=== PATIENT | male | born 1945 | race Caucasian/White ===

== ENCOUNTER 2016-08-10 06:07 | Day surgery (SDC) | payer MEDICARE, OTHER ==
[2016-08-09 08:43] VITALS: BMI 35.9
[2016-08-10] MEDS ORDERED: BENZOCAINE SPRAY 100 APPLIC/CAN TOPICAL PRN (06:23)
[2016-08-10 06:52] VITALS: RESP 16
[2016-08-10] MEDS ORDERED: SODIUM CHLORIDE 0.9% 1,000 ML IV ONE (06:55)
[2016-08-10] MEDS ORDERED: MIDAZOLAM 2 MG/2 ML VIAL ONE (07:14)
[2016-08-10] MEDS ORDERED: fentaNYL (PF) 50 MCG/ML 2 ML AMP ONE (07:15)
[2016-08-10 07:19] LABS: INR 3.4 (<1.1); Prothrombin Time 33.2 sec (9.0-12.0)
[2016-08-10] MEDS ORDERED: BENZOCAINE SPRAY 100 APPLIC/CAN MUCOUS MEM ONE (07:28)
[2016-08-10] MEDS ORDERED: MIDAZOLAM 2 MG/2 ML VIAL IV ONE (07:29)
[2016-08-10] MEDS ORDERED: fentaNYL (PF) 50 MCG/ML 2 ML AMP IV ONE (07:34)
[2016-08-10] MEDS ORDERED: BENZOCAINE SPRAY 100 APPLIC/CAN ONE (07:55)
[2016-08-10] MEDS ORDERED: SODIUM CHLORIDE 0.9% 1,000 ML IV SCH (08:15)
--- NOTE | 2016-08-10 08:15 | P.PCN ---
Date of Procedure: 08/10/16 Preoperative Diagnosis: Moderate to severe mitral regurgitation Postoperative Diagnosis: Same Procedure(s) Performed: JAYDE examination Description of Procedure: INDICATION :This 71-year-old gentleman with history of mitral valve prolapse was recently diagnosed to have atrial fibrillation and also moderate to severe mitral regurgitation. Patient is advised to have a JAYDE examination for further assessment of mitral regurgitation. CONSENT: Informed consent was obtained from patient and which is a verbal consent PROCEDURE: Patient was brought to the lab in a fasting state. Patient was sedated with IV Versed and fentanyl. The throat was sprayed with Hurricaine .A lubricated Omni probe was advanced into the esophagus and multiple views were obtained. Pulse and color Doppler study was also performed. Saline bubble injections were also performed. Patient tolerated the procedure well. No immediate complications FINDINGS: The mitral valve shows some thickening. There is a echogenic mobile mass which is linear attached to the mitral leaflet. It appears to be a ruptured chordae tendineae. There is a eccentric mitral regurgitation. The Pisa value is about 0.8-1. The mitral regurgitation appears to be 3-4+ in the left atrial appendage appeared to be free of clot. No reversal flow was noted in the left pulmonary vein. The interatrial septum appeared to be intact without any spontaneous shunt. The saline bubble injections were suboptimal. There is moderate aortic regurgitation. Left ventricular function appeared to be preserved. IMPRESSION: #1. 3-4+ mitral regurgitation #2. Possible ruptured chordae tendonae #3. Moderate aortic regurgitation #4. Preserved LV function #5. No clot in left atrial appendage #6. Intra-atrial septum appeared to be intact. PLAN: Continuation of medical therapy. We will discontinue flecainide. We'll let just the dose of Coumadin. Patient is being evaluated for possible recurrence of lung cancer. If there is no evidence of recurrence of lung cancer , we'll consider cardiac catheterization and possible mitral valve repair.
[2016-08-10 08:56] VITALS: BP 109/61; PULSE 85; TEMP 98.2
== END 2016-08-10 09:07 | disposition home or self-care (01) ==
LOC: CATHCVL 06:07
PROVIDERS: ATTEND Internal Medicine Cardiovascular Disease
DX: I08.0 Rheumatic disorders of both mitral and aortic valves (principal); I34.1 Nonrheumatic mitral (valve) prolapse; I48.1 Persistent atrial fibrillation; I10 Essential (primary) hypertension; E78.2 Mixed hyperlipidemia; E03.9 Hypothyroidism, unspecified; Z79.01 Long term (current) use of anticoagulants; Z79.82 Long term (current) use of aspirin; Z79.899 Other long term (current) drug therapy; Z87.891 Personal history of nicotine dependence
CPT/HCPCS: 93312; 93320; 93325; 85610; 99156; 99157; J2250; J3010

== ENCOUNTER → 2016-09-22 | Outpatient (CLI) | payer MEDICARE, OTHER ==
[2016-09-22 13:45] LABS: CH 30.4; CHCM 33.1; HCT 43.4 % (39.0-53.0); HDW 2.78; HGB 14.4 gm/dL (13.0-17.5); MCH 30.6 pg (25.0-35.0); MCHC 33.2 g/dL (31.0-37.0); MCV 92.1 fL (80.0-100.0); Mean Platelet Volume 7.3; RBC 4.71 m/uL (4.30-5.90); WBC 8.8 k/uL (3.8-10.6)
[2016-09-22 13:58] LABS: Anion Gap 14 mmol/L; Blood Urea Nitrogen 36 mg/dL (9-20); Carbon Dioxide 28 mmol/L (22-30); Chloride 99 mmol/L (98-107); Non-African American GFR(MDRD) 59 (>60 ml/min/1.73 sqM); Potassium 4.8 mmol/L (3.5-5.1); Sodium 141 mmol/L (137-145)
== END ==
LOC: LABPAT 13:29
PROVIDERS: ATTEND Internal Medicine Cardiovascular Disease
DX: Z01.812 Encounter for preprocedural laboratory examination (principal); I48.1 Persistent atrial fibrillation
CPT/HCPCS: 80051; 82565; 84520; 85027

== ENCOUNTER 2016-09-23 07:54 | Inpatient (IN) | payer MEDICARE, OTHER ==
[~2016-09-23 07:54] MED LIST: ALPRAZolam 0.25 MG TAB PO PRN; ASPIRIN 325 MG TAB PO ONE; SODIUM CHLORIDE 0.9% 1,000 ML in EMPTY BAG 1 BAG IV ONE
[2016-09-23 08:34] LABS: Anisocytosis Slight; Basophils # (A) 0.1 k/uL (0-0.2); Basophils % (A) 1 %; CH 30.5; CHCM 33.5; Eosinophils # (A) 0.4 k/uL (0-0.7); Eosinophils % (A) 6 %; HCT 44.2 % (39.0-53.0); HDW 2.85; HGB 14.7 gm/dL (13.0-17.5); Luc # (Auto) 0.28; Luc % (Auto) 4; Lymphocytes # (A) 0.9 k/uL (1.0-4.8); Lymphocytes % (A) 12 %; MCH 30.5 pg (25.0-35.0); MCHC 33.3 g/dL (31.0-37.0); MCV 91.5 fL (80.0-100.0); Mean Platelet Volume 8.3; Monocytes # (A) 0.3 k/uL (0-1.0); Monocytes % (A) 5 %; Neutrophils # (A) 5.2 k/uL (1.3-7.7); Neutrophils % (A) 73 %; RBC 4.83 m/uL (4.30-5.90); RDW 16.1 % (11.5-15.5); WBC 7.2 k/uL (3.8-10.6); WBC (Perox) 7.32
[2016-09-23 08:39] LABS: INR 1.3 (<1.1); Prothrombin Time 13.1 sec (9.0-12.0)
[2016-09-23 08:45] LABS: Anion Gap 12 mmol/L; Blood Urea Nitrogen 33 mg/dL (9-20); Calcium 8.4 mg/dL (8.4-10.2); Carbon Dioxide 25 mmol/L (22-30); Chloride 104 mmol/L (98-107); Glucose 129 mg/dL (74-99); Non-African American GFR(MDRD) >60 (>60 ml/min/1.73 sqM); Potassium 4.5 mmol/L (3.5-5.1); Sodium 141 mmol/L (137-145)
[2016-09-23] MEDS ORDERED: fentaNYL (PF) 50 MCG/ML 2 ML AMP IV ONE (09:00)
[2016-09-23] MEDS ORDERED: LIDOCAINE 2% INJ 20 MG/ML SQ ONE (09:00)
[2016-09-23 09:36] LABS: Site FA; Site PA; Site RA
[2016-09-23] MEDS ORDERED: FUROSEMIDE 10 MG/ML 4 ML VIAL IV ONE (09:45)
[2016-09-23] MEDS ORDERED: IOHEXOL 350 MG/ML 100 ML BOTTLE INJ ONE (09:47)
[2016-09-23 09:52] LABS: Site RA #2
[2016-09-23] MEDS ORDERED: RX INFO: IV CONTRAST WAS GIVEN 1 EACH MISC MISCELLANE PRN ×2 (09:58→18:12)
[2016-09-23] MEDS ORDERED: SODIUM CHLORIDE 0.9% 1,000 ML IV SCH (10:00)
--- NOTE | 2016-09-23 10:10 | P.PCN ---
Date of Procedure: 09/23/16 Preoperative Diagnosis: Ruptured chordae tendineae, mitral regurgitation, atrial fibrillation and CHF. Postoperative Diagnosis: The same Procedure(s) Performed: Right and left heart catheterization Description of Procedure: HISTORY: This is a 71-year-old male with history of of mitral valve prolapse who developed symptoms of congestive heart failure and progressive mitral regurgitation. A JAYDE examination was consistent with ruptured chordae. Patient is advised to have a right and left heart catheterization. Patient may be candidate for mitral valve repair. CONSENT:I have discussed the risks, benefits and alternative therapies for the above-mentioned procedure and for both sedation/analgesia as well as necessary blood product administration, if indicated, as they pertain to this patient. The patient has indicated understanding and acceptance of the risks and procedures discussed. PROCEDURE: RIGHT HEART CATHETERIZATION Patient was brought to the lab in a fasting state. He was prepped and draped in the usual fashion. The right groin is infiltrated with lidocaine. Right femoral vein was entered using the Seldinger technique. A 7-S[place] sheath was advanced over the guidewire and and left in place. Right heart catheterization was performed using [place] catheter. Patient tolerated the procedure well. Manual compression was applied for hemostasis. LEFT HEART CATHETERIZATION: The right groin is infiltrated with lidocaine and right femoral artery was entered using Seldinger technique. A 6-S[place] Leonean catheter was left in place and selective coronary arteriography and left ventriculography was performed. Patient tolerated the procedure well. Femoral angiogram was performed and hemostasis is obtained with manual compression. No immediate complications were noted and patient was transferred to [facility] in a stable condition HEMODYNAMICS: RIGHT HEART CATHETERIZATION: Mean right atrial pressure was 14. Right ventricular pressure was 50/ 14. Pulmonary artery pressure was 50/ 25. Pulmonary wedge pressure was 26 with a V-wave of 45. No evidence of shunt. Cardiac output by thermodilution method was 5.17 and by Marciano method 4.46. SELECTIVE CORONARY ARTERIOGRAPHY: LEFT MAIN: Huge vessel and ectatic without any stenosis. THE LEFT ANTERIOR DESCENDING CORONARY ARTERY: Large caliber vessel with ectatic changes but no obstructive disease. THE LEFT CIRCUMFLEX AND IS CORONARY ARTERY: Large caliber vessel without any stenosis and ectatic changes. THE RIGHT CORONARY ARTERY: Nondominant vessel and free of occlusive disease LEFT VENTRICULOGRAPHY: Showed dilated left ventricle with preserved LV function. There appears to be 3-4+ eccentric mitral regurgitation. FINAL IMPRESSION: #1. Moderate to severe mitral regurgitation #2. Ectatic but normal coronary arteries #3. Moderate pulmonary hypertension #4. Paroxysmal atrial fibrillation. #5 Ruptured chordae tendineae and maximize mitral valve. PLAN: Continue maximal medical therapy. Mitral valve repair PROGNOSIS: Guarded
[2016-09-23] MEDS: FUROSEMIDE 40 MG TAB PO SCH (16:30)
[2016-09-23 17:56] LABS: Anisocytosis Slight; Basophils # (A) 0.1 k/uL (0-0.2); Basophils % (A) 1 %; CH 30.4; CHCM 33.5; Eosinophils # (A) 0.3 k/uL (0-0.7); Eosinophils % (A) 4 %; HCT 43.7 % (39.0-53.0); HDW 2.77; HGB 14.6 gm/dL (13.0-17.5); Luc # (Auto) 0.18; Luc % (Auto) 3; Lymphocytes # (A) 1.1 k/uL (1.0-4.8); Lymphocytes % (A) 17 %; MCH 30.4 pg (25.0-35.0); MCHC 33.4 g/dL (31.0-37.0); MCV 90.9 fL (80.0-100.0); Mean Platelet Volume 7.6; Monocytes # (A) 0.5 k/uL (0-1.0); Monocytes % (A) 7 %; Neutrophils # (A) 4.6 k/uL (1.3-7.7); Neutrophils % (A) 69 %; RBC 4.81 m/uL (4.30-5.90); RDW 16.1 % (11.5-15.5); WBC 6.6 k/uL (3.8-10.6); WBC (Perox) 6.39
[2016-09-23] MEDS ORDERED: WARFARIN 5 MG TAB PO SCH (18:00)
[2016-09-23] MEDS ORDERED: MD COMMUNICATION TO PHARMACY 1 EACH MISC PO ONE ×5 (18:12)
--- NOTE | 2016-09-23 18:22 | P.CON ---
Consult Note - . Consult date: 09/23/16 Assessment/Plan:: Mr. Stevenson is a 71-year-old male who presents with congestive heart failure. He has been undergoing workup for this. JAYDE in July demonstrated severe mitral regurgitation with moderate aortic valvular insufficiency with normal ventricular function. Mitral regurgitation specifically showed prolapse of the P2 segment of the mitral valve with probable ruptured cords and a very large eccentric jet the tract all the way to the posterior atrium. Aortic insufficiency was a moderate-sized jet that impacted on the anterior leaflet of the mitral valve. Cardiac catheterization was performed today demonstrating a nondominant right coronary artery dominant left circumflex circumflex system no evidence of significant coronary atherosclerosis. Previous medical history includes previous thyroid carcinoma which was treated with total thyroidectomy and radioactive iodine. A she has been followed since that time and current models. Recently has had a computed tomography scan of the chest that is suspicious for some mild to moderate mediastinal adenopathy. He was recommended to undergo lymph node biopsy. Previous medical history also includes recent history. History of paroxysmal atrial fibrillation. Includes hypothyroidism from his previous thyroidectomy. Includes hypertension and hyperlipidemia. It includes truncal obesity. Includes general debilitation secondary to his congestive heart failure and inability to exercise of late. Previous surgical history is as mentioned above. Social history is negative for smoking at this time he did quit in the distant past. He has a 2 pack a day 22 year history for a total of 44 pack years hip. He is and lives at home with his . Does not drink alcohol to excess. Complete review of systems was obtained and is negative except as noted above. Physical exam demonstrates a awake and alert gentleman. Blood pressure is 110/60. Heart rate is 64. His weight is 249 pounds and his BMI is 36.77. Pupils are equal and reactive to light extraocular motions are intact. No cervical masses no JVD no carotid bruits. Lung elam are clear. Heart rate and rhythm are regular with holosystolic murmur. Abdomen is scaphoid soft and nontender without masses bowel sounds are positive. Her pulses are good. He has palpable posterior tibial pulses. In summary this is a 71-year-old gentleman with congestive heart failure secondary to severe mitral regurgitation. He also has moderate aortic valvular insufficiency with a jet directed directly onto the mitral valve. It is quite possible that this is the cause of the mitral valvular disease. In addition he has recent paroxysmal atrial fibrillation. He also has mediastinal adenopathy which has been raised as a concern by his oncologist at [facility] and he has been recommended to undergo biopsy of these nodes. Plan at this time is to proceed with mitral valve repair as well as aortic valve replacement modified Frederick maze procedure and mediastinal lymph node biopsy. Timing of the surgery was discussed with the patient. Given the need to restart his Coumadin for discharge and then discontinue it again for the surgery, it seems most appropriate to simply schedule the surgery in the next few days and keep the patient off Coumadin. Surgery will be scheduled for Tuesday. In the interim we will obtain a computed tomography scan of the chest to better delineate the mediastinal lymphadenopathy as his CAT scan at [facility] is not available to us at this time. We will also place him on Lovenox which be stopped for at least 24 hours preoperatively. The procedure its risks versus benefits and possible complications were discussed with the patient and his family all their questions were answered A. Ready to proceed with surgery and agree with the plan to proceed with the surgery on Tuesday.-*-
[2016-09-23 18:30] LABS: Appearance,Urine Clear (Clear); Bilirubin,Urine Negative (Negative); Glucose,Urine (UA) Negative (Negative); Ketones,Urine Negative (Negative); Leukocyte Esterase,Urine Negative (Negative); Nitrite,Urine Negative (Negative); Protein,Urine Negative (Negative); Specific Gravity,Urine 1.011 (1.001-1.035); UA Billing (MACRO vs. MICRO) CHEM; Urobilinogen,Urine <2.0 mg/dL (<2.0)
--- NOTE | 2016-09-23 19:32 | XR ---
EXAMINATION TYPE: XR chest 2V DATE OF EXAM: 09/23/2016 7:27 PM COMPARISON: 06/17/2016 HISTORY: Preop heart surgery TECHNIQUE: Frontal and lateral views of the chest are obtained. FINDINGS: There is no heart failure nor confluent pneumonic infiltrate. There is slight blunting of right costophrenic angle. There are no hilar masses. There are chest leads. IMPRESSION: There is probably a tiny right pleural effusion that is new compared to last exam. No he art failure seen.
--- NOTE | 2016-09-23 19:44 | US ---
EXAMINATION TYPE: US carotid duplex BILAT DATE OF EXAM: 09/23/2016 7:24 PM COMPARISON: NONE CLINICAL HISTORY: Preop open heart. EXAM MEASUREMENTS: RIGHT: Peak Systolic Velocity (PSV) cm/sec ----- Right CCA: 67.7 ----- Right ICA: 108.1 ----- Right ECA: 69.1 ICA/CCA ratio: 1.6 RIGHT: End Diastole cm/sec ----- Right CCA: 17.6 ----- Right ICA: 28.9 ----- Right ECA: 9.8 LEFT: Peak Systolic Velocity (PSV) cm/sec ----- Left CCA: 94.4 ----- Left ICA: 146.1 ----- Left ECA: 84.0 ICA/CCA ratio: 1.5 LEFT: End Diastole cm/sec ----- Left CCA: 17.5 ----- Left ICA: 39.3 ----- Left ECA: 7.6 VERTEBRALS (direction of flow): Right Vertebral: Antegrade Left Vertebral: Antegrade Tortuous ICAs bilaterally. Minimal plaque visualized bilaterally, elevated velocity visualized within the left mid ICA IMPRESSION: There is antegrade flow in the vertebral arteries. The images and measurements suggest 4 0% stenosis in the right internal carotid artery and 50-70% stenosis in the left internal carotid art jonna. Criteria for Assigning % of Stenosis / Diameter reduction (Estimation based on the indirect measurements of the internal carotid artery velocities (ICA PSV). 1. Normal (no stenosis)=ICA PSV < 125 cm/s: ratio < 2.0: ICA EDV<40 cm/s. 2. Less than 50% stenosis=ICA PSV < 125 cm/s: ratio < 2.0: ICA EDV<40 cm/s. 3. 50 to 69% stenosis=ICA PSV of 125 to 230 cm/s: ration 2.0 ? 4.0: ICA EDV 40-100 cm/s. 4. Greater than 70% stenosis to near occlusion= ICA PSV > 230 cm/s: ratio > 4.0: ICA EDV > 100 cm/s. 5. Near occlusion= ICA PSV velocities may be low or undetectable: variable ratio and ICA EDV. 6. Total occlusion=unable to detect flow.
[2016-09-23] MEDS: MUPIROCIN 2% OINT 22 GM TUBE NASAL SCH (20:38)
[2016-09-23] MEDS: ENOXAPARIN 100 MG/ML SYRINGE SQ SCH (20:38)
[2016-09-23] MEDS: ATORVASTATIN 20 MG TAB PO SCH (20:38)
[2016-09-23] MEDS: METOPROLOL TARTRATE 50 MG TAB PO SCH (20:39)
[2016-09-24] MEDS ORDERED: INSULIN REGULAR 100 UNIT in SODIUM CHLORIDE 0.9% 100 ML IV ONE (05:00)
[2016-09-24] MEDS ORDERED: ceFAZolin 2 GM in SODIUM CHLORIDE 0.9% 30 ML IVPB ONE (05:00)
[2016-09-24 06:25] LABS: INR 1.3 (<1.1); Prothrombin Time 12.7 sec (9.0-12.0)
[2016-09-24 06:39] LABS: ALT 39 U/L (21-72); AST 22 U/L (17-59); Alkaline Phosphatase 74 U/L (38-126); Anion Gap 6 mmol/L; Blood Urea Nitrogen 29 mg/dL (9-20); Calcium 8.2 mg/dL (8.4-10.2); Carbon Dioxide 28 mmol/L (22-30); Chloride 101 mmol/L (98-107); Cholesterol 151 mg/dL (<200); Glucose 114 mg/dL (74-99); HDL Cholesterol 34 mg/dL (40-60); Non-African American GFR(MDRD) 59 (>60 ml/min/1.73 sqM); Potassium 3.9 mmol/L (3.5-5.1); Sodium 135 mmol/L (137-145); Total Bilirubin 0.8 mg/dL (0.2-1.3); Total Protein 6.5 g/dL (6.3-8.2); Triglycerides 160 mg/dL (<150)
[2016-09-24 07:30] LABS: Hepatitis B Surface Ag Index 0.09
[2016-09-24 07:36] LABS: Hepatitis B Core IgM Index 0.04
[2016-09-24 07:47] LABS: Hepatitis C Virus IgG Index 0.03
[2016-09-24 07:55] LABS: Hepatitis C Virus IgG Ab Negative (Negative)
[2016-09-24] MEDS: LEVOTHYROXINE 75 MCG TAB PO SCH (08:41)
[2016-09-24] MEDS: ENOXAPARIN 100 MG/ML SYRINGE SQ SCH ×2 (08:41→20:01)
[2016-09-24] MEDS: MUPIROCIN 2% OINT 22 GM TUBE NASAL SCH ×2 (08:41→20:01)
[2016-09-24] MEDS: ASPIRIN 81 MG CHEW PO SCH (08:42)
[2016-09-24] MEDS: METOPROLOL TARTRATE 50 MG TAB PO SCH ×2 (08:42→20:01)
[2016-09-24] MEDS: POTASSIUM CHLORIDE ER 10 MEQ TAB.ER.PRT PO SCH (08:42)
[2016-09-24] MEDS: LISINOPRIL 20 MG TAB PO SCH (08:42)
[2016-09-24] MEDS: FUROSEMIDE 40 MG TAB PO SCH ×2 (08:42→16:23)
[2016-09-24] MEDS: PANTOPRAZOLE 40 MG TABLET PO SCH (08:43)
--- NOTE | 2016-09-24 08:55 | P.PN ---
<Charisse Croft - Last Filed: 09/24/16 08:39> Subjective Principal diagnosis: Severe mitral regurgitation, moderate aortic valvular insufficiency, congestive heart failure, history of paroxysmal atrial fibrillation, hypothyroidism, hypertension, and hyperlipidemia. Patient currently sitting up in bed in no apparent distress. No complaints at this time. Son at the bedside. Preoperative teaching continued. Objective - Vital Signs Vital signs: Vital Signs Temp 97.7 F 09/24/16 08:00 Pulse 86 09/24/16 08:00 Resp 18 09/24/16 08:00 BP 123/60 09/24/16 08:00 Pulse Ox 95 09/24/16 08:00 Intake & Output 09/23/16 09/24/16 09/24/16 18:59 06:59 18:59 Intake Total 200 600 Output Total 1975 Balance -177 600 Weight 103 kg 110.3 kg Intake: IV 200 0 Sodium Chloride 0.9% 1, 50 0 000 ml @ 50 mls/hr IV . Q20H STEVAN Rx#:[id number] Oral 600 Output: Urine 1974 Other: # Voids 1 3 - Constitutional General appearance: Present: cooperative, no acute distress, obese - Respiratory Details: lungs sounds were diminished, coarse in the bases. Respirations even, nonlabored. Currently on room air. - Cardiovascular Details: S1, S2 present. Systolic murmur present. Regular rate, rhythm, normal sinus rhythm on telemetry.Trace bilateral lower extremity edema present. - Gastrointestinal Gastrointestinal Comment(s): Abdomen soft, nontender, nondistended although very round. Bowel sounds active 4 quadrants. Tolerating diet. - Genitourinary Genitourinary Comment(s): Continues to void clear, yellow urine per urinal. - Musculoskeletal Musculoskeletal: Present: gait normal, strength equal bilaterally - Psychiatric Psychiatric: Present: A&O x's 3, appropriate affect, intact judgment & insight - Allied health notes Allied health notes reviewed: nursing - Labs CBC & Chem 7: 09/23/16 17:35 09/24/16 05:33 Labs: Abnormal Lab Results - Last 24 Hours (Table) 09/23/16 09/23/16 09/23/16 Range/Units 08:30 08:30 17:35 RDW 16.1 H (11.5-15.5) % PT 13.1 H (9.0-12.0) sec Sodium (137-145) mmol/L BUN 33 H (9-20) mg/dL Glucose 129 H (74-99) mg/dL Calcium (8.4-10.2) mg/dL Triglycerides (<150) mg/dL HDL Cholesterol (40-60) mg/dL TSH (0.465-4.680) mIU/L 09/24/16 09/24/16 Range/Units 05:33 05:33 RDW (11.5-15.5) % PT 12.7 H (9.0-12.0) sec Sodium 135 L (137-145) mmol/L BUN 29 H (9-20) mg/dL Glucose 114 H (74-99) mg/dL Calcium 8.2 L (8.4-10.2) mg/dL Triglycerides 160 H (<150) mg/dL HDL Cholesterol 34 L (40-60) mg/dL TSH 23.400 H (0.465-4.680) mIU/L Microbiology - Last 24 Hours (Table) 09/23/16 18:40 Nasal Screen MRSA/MSSA (QUINTIN) - Preliminary Nasal Swab 09/23/16 18:24 Urine Culture - Preliminary Urine,Clean Catch - Imaging and Cardiology Chest x-ray: report reviewed, image reviewed (carotid Dopplers reviewed.) Assessment and Plan (1) Mitral valvular regurgitation Status: Acute (2) Moderate aortic insufficiency Status: Acute (3) Congestive heart failure due to valvular disease Status: Acute (4) Paroxysmal atrial fibrillation Status: Acute (5) Hypothyroidism (acquired) Status: Acute (6) Obesity Status: Acute (7) Hypercholesterolemia Status: Acute (8) Hypertension Status: Acute Plan: 1. Continue aspirin, Lipitor, Lopressor. 2. Continue lisinopril, stop 09/25/2016 3. Hold Coumadin, patient placed on Lovenox twice a day to be stopped 09/25/16 4. Preoperative testing ordered, pending. 5. Anticipate aortic valve replacement with mitral valve repair on September 3. 6. Preoperative teaching initiated, will continue to reinforce. 7. GI/DVT prophylaxis. 8. 5 m walk test done:#1 5.23 sec, #2 5.11 sec, #3 5.18 sec 9. More recommendations as patient progresses. Time with Patient: Greater than 30 <Jae Riggs - Last Filed: 09/24/16 11:56> Objective - Vital Signs Vital signs: Vital Signs Temp 97.7 F 09/24/16 08:00 Pulse 66 09/24/16 11:36 Resp 18 09/24/16 11:36 BP 120/70 09/24/16 11:36 Pulse Ox 95 09/24/16 11:36 Intake & Output 09/23/16 09/24/16 09/24/16 18:59 06:59 18:59 Intake Total 200 600 570 Output Total 1974 Balance -177 600 570 Weight 103 kg 110.3 kg Intake: IV 200 0 Sodium Chloride 0.9% 1, 50 0 000 ml @ 50 mls/hr IV . Q20H STEVAN Rx#:[id number] Oral 600 570 Output: Urine 1974 Other: # Voids 1 3 - Labs CBC & Chem 7: 09/23/16 17:35 09/24/16 05:33 Labs: Abnormal Lab Results - Last 24 Hours (Table) 09/23/16 09/24/16 09/24/16 Range/Units 17:35 05:33 05:33 RDW 16.1 H (11.5-15.5) % PT 12.7 H (9.0-12.0) sec Sodium 135 L (137-145) mmol/L BUN 29 H (9-20) mg/dL Glucose 114 H (74-99) mg/dL Calcium 8.2 L (8.4-10.2) mg/dL Triglycerides 160 H (<150) mg/dL HDL Cholesterol 34 L (40-60) mg/dL TSH 23.400 H (0.465-4.680) mIU/L Microbiology - Last 24 Hours (Table) 09/23/16 18:40 Nasal Screen MRSA/MSSA (QUINTIN) - Preliminary Nasal Swab 09/23/16 18:24 Urine Culture - Preliminary Urine,Clean Catch Assessment and Plan Plan: CT chest today to plan lymph node bx OR Tuesday: AVR, MV repair, Mod Frederick maze, LN bx.;
[2016-09-24] MEDS ORDERED: LACTATED RINGERS 1,000 ML IV SCH (10:45)
--- NOTE | 2016-09-24 10:46 | CT ---
EXAMINATION TYPE: CT chest w con DATE OF EXAM: 09/24/2016 10:29 AM COMPARISON: NONE HISTORY: Patient complains of difficulty breathing. CT DLP: 612.7 mGycm Automated exposure control for dose reduction was used. CONTRAST: CT scan of the chest is performed with IV Contrast, patient injected with 80 mL of Visipaque 320. FINDINGS: There are emphysematous changes throughout the lungs. There is interstitial change. There i s a 5.6 mm pulmonary nodule in the right middle lobe, best seen on image 24. There is bullous change in the left apex. There is no significant axillary adenopathy. There is some shotty mediastinal adenopathy. No definite pathologically enlarged lymph nodes are seen. There is a tiny right-sided pleural effusion. The hear t is not enlarged. There are gallstones within the gallbladder. Visualized portions of the upper abdomen are otherwise u nremarkable. There is hypertrophic spondylosis within the spine. IMPRESSION: 1. MODERATE EMPHYSEMATOUS CHANGE THROUGHOUT THE LUNGS. 2. INTERSTITIAL FIBROSIS. 3. SOLITARY, 5.6 MM PULMONARY NODULE IN THE RIGHT MIDDLE LOBE. 4 CHOLELITHIASIS. 5. DEGENERATIVE CHANGES WITHIN THE SPINE.
--- NOTE | 2016-09-24 10:54 | P.PN ---
Subjective Principal diagnosis: Mitral regurg This is a pleasant 71-year-old gentleman with history of hypertension , hyperlipidemia, history of thyroid carcinoma treated with total thyroidectomy and radioactive iodine, recent CT of the chest suspicious for mild to moderate mediastinal adenopathy, mitral valve prolapse who developed symptoms of congestive heart failure progressive mitral regurgitation. A JAYDE examination was consistent with ruptured chordae, severe mitral regurgitation and moderate aortic valve insufficiency. Patient was advised to have a right and left heart catheterization, this was performed yesterday by Dr. Guadarrama. Cardiac catheterization revealed moderate to severe mitral regurgitation. Ectatic but normal coronary arteries. Moderate pulmonary hypertension. Ruptured chordae tendinae. Patient was seen in consultation by Dr. Riggs cardiothoracic surgeon , he will be scheduled on Tuesday to undergo mitral valve repair and aortic valve replacement. Coumadin has been placed on hold. He is remaining in normal sinus rhythm. Objective - Vital Signs Vital signs: Vital Signs Temp 97.7 F 09/24/16 08:00 Pulse 86 09/24/16 08:00 Resp 18 09/24/16 08:00 BP 123/60 09/24/16 08:00 Pulse Ox 95 09/24/16 08:00 Intake & Output 09/23/16 09/24/16 09/24/16 18:59 06:59 18:59 Intake Total 200 600 570 Output Total 1974 -1774 600 570 Weight 103 kg 110.3 kg Intake: IV 200 0 Sodium Chloride 0.9% 1, 50 0 000 ml @ 50 mls/hr IV . Q20H STEVAN Rx#:[id number] Oral 600 570 Output: Urine 1974 Other: # Voids 1 3 - Exam PHYSICAL EXAMINATION: HEENT: Head is atraumatic, normocephalic. Pupils equal, round. Neck is supple. There is no elevated jugular venous pressure. HEART EXAMINATION: Heart S1-S2 holosystolic murmur is heard. CHEST EXAMINATION: Lungs are clear to auscultation and precussion. No chest wall tenderness is noted on palpation or with deep breathing. ABDOMEN: Soft, nontender. Bowel sounds are heard. No organomegaly noted. EXTREMITIES: 2+ peripheral pulses with no evidence of peripheral edema and no calf tenderness noted. NEUROLOGIC patient is awake, alert and oriented -3. . - Labs CBC & Chem 7: 09/23/16 17:35 09/24/16 05:33 Labs: Abnormal Lab Results - Last 24 Hours (Table) 09/23/16 09/24/16 09/24/16 Range/Units 17:35 05:33 05:33 RDW 16.1 H (11.5-15.5) % PT 12.7 H (9.0-12.0) sec Sodium 135 L (137-145) mmol/L BUN 29 H (9-20) mg/dL Glucose 114 H (74-99) mg/dL Calcium 8.2 L (8.4-10.2) mg/dL Triglycerides 160 H (<150) mg/dL HDL Cholesterol 34 L (40-60) mg/dL TSH 23.400 H (0.465-4.680) mIU/L Microbiology - Last 24 Hours (Table) 09/23/16 18:40 Nasal Screen MRSA/MSSA (QUINTIN) - Preliminary Nasal Swab 09/23/16 18:24 Urine Culture - Preliminary Urine,Clean Catch Assessment and Plan (1) Severe mitral regurgitation Status: Acute (2) Hypothyroidism (acquired) Status: Acute (3) Moderate aortic insufficiency Status: Acute (4) Paroxysmal atrial fibrillation Status: Acute (5) Hypercholesterolemia Status: Acute (6) Hypertension Status: Acute Plan: We will continue to hold the patient's Coumadin, he is scheduled to undergo mitral valve repair and aortic valve replacement on Tuesday. We will continue to follow. DNP note has been reviewed, I agree with a documented findings and plan of care. Patient was seen and examined.
[2016-09-24 12:34] LABS: Hemoglobin A1C 6.1 % (4.2-6.1)
--- NOTE | 2016-09-24 14:06 | P.CNPUL ---
History of Present Illness Consult date: 09/24/16 Reason for consult: dyspnea, pulmonary hypertension, other Chief complaint: shortness of breath, valvular heart disease History of present illness: 71-year-old gentleman with a history of hypertension hypothyroidism hyperlipidemia and valvular heart disease. Had a catheterization which showed clean coronary arteries and evidence of both moderate to severe mitral regurgitation as well as aortic valve regurgitation. The patient has been seen by the thoracic surgery and he is anticipated to have surgery on Tuesday. The patient is doing relatively well otherwise. No history of any lung disease. Patient denies any cough wheezing or phlegm production. No coughing up of blood. The patient has no ALLERGIES. His home medications included lisinopril level thyroxine Lasix aspirin Coumadin potassium Metroprolol and Mevacor. Review of Systems A 12 point review of system is positive positive primarily for shortness of breath. The rest of the 12 point review of system is unremarkable. Past Medical History Past Medical History: Cancer, Hyperlipidemia, Osteoarthritis (OA), Thyroid Disorder Additional Past Medical History / Comment(s): THYROID CANCER ,SEE DR FLORES 'S H&P, varicose veins, "fluid in lungs", History of Any Multi-Drug Resistant Organisms: None Reported Past Surgical History: Joint Replacement Additional Past Surgical History / Comment(s): thyroidectomy, total left knee replacement, JAYDE, Past Anesthesia/Blood Transfusion Reactions: No Reported Reaction Past Psychological History: No Psychological Hx Reported Additional Psychological History / Comment(s): . Smoking Status: Former smoker Past Alcohol Use History: Rare Additional Past Alcohol Use History / Comment(s): SMOKED 3 PPD. Started smoking in 1959 and QUIT SMOKING 1979. Pt smoked cigars on and off from 1991 until 1999. Past Drug Use History: None Reported - Past Family History Father Family Medical History: Coronary Artery Disease (CAD) Additional Family Medical History / Comment(s): Father of "heart problems" at the age of 76yrs. Mother Family Medical History: No Reported History Additional Family Medical History / Comment(s): Mother at the age of 92yrs. VARICOSE VEINS Brother(s) Family Medical History: Cancer Additional Family Medical History / Comment(s): LIVER CA. BLOOD CLOT. Medications and Allergies Home Medications Medication Instructions Recorded Confirmed Type Aspirin 81 mg PO DAILY 11/14/14 09/23/16 History Levothyroxine Sodium [Synthroid] 150 mcg PO DAILY 11/15/14 09/23/16 History Lovastatin [Mevacor] 80 mg PO HS 06/17/16 09/23/16 History Lisinopril [Prinivil] 20 mg PO DAILY 08/09/16 09/23/16 History Warfarin [Coumadin] 5 mg PO DAILY 08/09/16 09/23/16 History Furosemide [Lasix] 40 mg PO DAILY 09/22/16 09/23/16 History Metoprolol Tartrate [Lopressor] 50 mg PO BID 09/22/16 09/23/16 History Potassium Chloride [K-Tab ER] 10 meq PO DAILY 09/22/16 09/23/16 History Allergies Allergy/AdvReac Type Severity Reaction Status Date / Time No Known Allergies Allergy Verified 09/23/16 08:13 Physical Exam Osteopathic Statement: *. No significant issues noted on an osteopathic structural exam other than those noted in the History and Physical/Consult. Vitals: Vital Signs Temp Pulse Resp BP Pulse Ox 09/24/16 11:36 66 18 120/70 95 09/24/16 08:00 97.7 F 86 18 123/60 95 09/24/16 04:00 79 18 93/51 90 L 09/24/16 00:00 69 18 107/71 90 L 09/23/16 20:00 98.2 F 76 18 114/68 92 L 09/23/16 16:00 98.2 F 80 18 117/65 93 L Intake and Output 09/23/16 09/24/16 09/24/16 22:59 06:59 14:59 Intake Total 600 570 Output Total 175 400 Balance -175 600 170 Intake: IV 0 Sodium Chloride 0.9% 1, 0 000 ml @ 50 mls/hr IV . Q20H STEVAN Rx#:[id number] Oral 600 570 Output: Urine 175 400 Other: # Voids 3 3 Weight 110.3 kg 110.3 kg Patient Weight 09/25/16 06:59 Weight 110.3 kg no acute distress, oriented 3 HEENT examination is grossly unremarkable. Mucous membranes are moist. No oral lesions. Neck supple. Full range of motion. No adenopathy or thyromegaly. Neck veins are flat. Cardiovascular examination reveals regular rhythm rate. There is a significant systolic murmur heard. No S3-S4. Lungs are clear breath sounds equal. No wheezes rhonchi or crackles Abdomen soft Extremities are intact. No cyanosis clubbing or edema. Results - Laboratory Findings CBC and BMP: 09/23/16 17:35 09/24/16 05:33 PT/INR, D-dimer PT 12.7 sec (9.0-12.0) H 09/24/16 05:33 INR 1.3 (<1.1) 09/24/16 05:33 Abnormal lab findings: Abnormal Labs 09/23/16 09/23/16 09/23/16 08:30 08:30 08:30 RDW 16.1 H Lymphocytes # 0.9 L PT 13.1 H Sodium BUN 33 H Glucose 129 H Calcium Triglycerides HDL Cholesterol TSH 09/23/16 09/24/16 09/24/16 17:35 05:33 05:33 RDW 16.1 H Lymphocytes # PT 12.7 H Sodium 135 L BUN 29 H Glucose 114 H Calcium 8.2 L Triglycerides 160 H HDL Cholesterol 34 L TSH 23.400 H - Diagnostic Findings Chest x-ray: image reviewed Assessment and Plan (1) Congestive heart failure due to valvular disease Status: Acute (2) Hypothyroidism (acquired) Status: Acute (3) Mitral valvular regurgitation Status: Acute (4) Moderate aortic insufficiency Status: Acute (5) Paroxysmal atrial fibrillation Status: Acute (6) Atrial fibrillation with RVR Status: Acute (7) Hypercholesterolemia Status: Acute (8) Hypertension Status: Acute Plan: Plan dated 09/24/2016 The patient should have a bedside spirometry. The patient will be seen by my partner after surgery on Tuesday. There is no contraindication to surgery from the pulmonary standpoint. The patient appears not to have any significant pulmonary disease. Patient likely be confirmed based on the spirometry. Time with Patient: Greater than 30
[2016-09-24] MEDS: ATORVASTATIN 20 MG TAB PO SCH (20:01)
[2016-09-25] MEDS: LEVOTHYROXINE 75 MCG TAB PO SCH (06:30)
[2016-09-25] MEDS: PANTOPRAZOLE 40 MG TABLET PO SCH (06:30)
--- NOTE | 2016-09-25 07:46 | P.PN ---
Subjective Principal diagnosis: Severe mitral regurgitation, moderate aortic valvular insufficiency, congestive heart failure, history of paroxysmal atrial fibrillation, hypothyroidism, hypertension, and hyperlipidemia. Patient currently sitting up in bed in no apparent distress. No complaints at this time. Objective - Vital Signs Vital signs: Vital Signs Temp 99.5 F 09/25/16 04:00 Pulse 74 09/25/16 04:00 Resp 16 09/25/16 04:00 BP 104/61 09/25/16 04:00 Pulse Ox 93 L 09/25/16 04:00 Intake & Output 09/24/16 09/25/16 09/25/16 18:59 06:59 18:59 Intake Total 570 500 Output Total 400 Balance 170 500 Weight 110.3 kg 110 kg Intake: Oral 570 500 Output: Urine 400 Other: Voiding Method Toilet # Voids 1 2 # Bowel Movements 0 - Constitutional General appearance: Present: cooperative, no acute distress, obese - Respiratory Details: Lungs sounds diminished bilaterally. Respirations even, nonlabored. Continues to remain on room air. Able to achieve 2500 mL on incentive spirometry - Cardiovascular Details: S1, S2 present. Systolic murmur present. Regular rate and rhythm, normal sinus rhythm on telemetry. No events noted overnight. - Gastrointestinal Gastrointestinal Comment(s): Abdomen soft, nontender, nondistended, round. Active bowel sounds 4 quadrants. Tolerating diet. - Genitourinary Genitourinary Comment(s): Continues to void clear, yellow urine per urinal. - Musculoskeletal Musculoskeletal: Present: gait normal, strength equal bilaterally - Psychiatric Psychiatric: Present: A&O x's 3, appropriate affect, intact judgment & insight - Allied health notes Allied health notes reviewed: nursing - Labs CBC & Chem 7: 09/23/16 17:35 09/24/16 05:33 Labs: Abnormal Lab Results - Last 24 Hours (Table) 09/24/16 Range/Units 05:33 Sodium 135 L (137-145) mmol/L BUN 29 H (9-20) mg/dL Glucose 114 H (74-99) mg/dL Calcium 8.2 L (8.4-10.2) mg/dL Triglycerides 160 H (<150) mg/dL HDL Cholesterol 34 L (40-60) mg/dL TSH 23.400 H (0.465-4.680) mIU/L Microbiology - Last 24 Hours (Table) 09/23/16 18:24 Urine Culture - Final Urine,Clean Catch Assessment and Plan (1) Mitral valvular regurgitation Status: Acute (2) Moderate aortic insufficiency Status: Acute (3) Congestive heart failure due to valvular disease Status: Acute (4) Paroxysmal atrial fibrillation Status: Acute (5) Hypothyroidism (acquired) Status: Acute (6) Obesity Status: Acute (7) Hypercholesterolemia Status: Acute (8) Hypertension Status: Acute Plan: 1. Continue aspirin, Lipitor, Lopressor. 2. Stop lisinopril today. 3. Lovenox to be stopped today. 4. Preoperative testing reviewed with surgeon. 5. Anticipate aortic valve replacement with mitral valve repair on Tuesday, September 27. 6. Preoperative teaching reinforced. 7. GI/DVT prophylaxis. 8. More recommendations as patient progresses. Time with Patient: Greater than 30
[2016-09-25] MEDS: FUROSEMIDE 40 MG TAB PO SCH ×2 (08:40→16:29)
[2016-09-25] MEDS: ASPIRIN 81 MG CHEW PO SCH (08:40)
[2016-09-25] MEDS: MUPIROCIN 2% OINT 22 GM TUBE NASAL SCH ×2 (08:40→21:56)
[2016-09-25] MEDS: LISINOPRIL 20 MG TAB PO SCH (08:40)
[2016-09-25] MEDS: POTASSIUM CHLORIDE ER 10 MEQ TAB.ER.PRT PO SCH (08:40)
[2016-09-25] MEDS: ENOXAPARIN 100 MG/ML SYRINGE SQ SCH ×2 (08:40→21:53)
[2016-09-25] MEDS: METOPROLOL TARTRATE 50 MG TAB PO SCH ×2 (08:40→21:53)
--- NOTE | 2016-09-25 12:38 | P.PN ---
Subjective 71-year-old gentleman with a history of hypertension hypothyroidism hyperlipidemia and valvular heart disease. Had a catheterization which showed clean coronary arteries and evidence of both moderate to severe mitral regurgitation as well as aortic valve regurgitation. The patient has been seen by the thoracic surgery and he is anticipated to have surgery on Tuesday. The patient is doing relatively well otherwise. No history of any lung disease. Patient denies any cough wheezing or phlegm production. No coughing up of blood. The patient has no ALLERGIES. His home medications included lisinopril level thyroxine Lasix aspirin Coumadin potassium Metroprolol and Mevacor. The patient is seen again today 09/25/2016 in follow-up on the selective care unit. He is awake and alert in no acute distress. He denies any worsening shortness of breath, cough or congestion. He is maintaining good O2 saturations in the mid 90s on room air. He's been afebrile. He denies any chest pain, palpitations lightheadedness or dizziness. Objective - Vital Signs Vital signs: Vital Signs Temp 98.1 F 09/25/16 11:34 Pulse 73 09/25/16 11:34 Resp 16 09/25/16 11:34 BP 118/70 09/25/16 11:34 Pulse Ox 95 09/25/16 11:34 Intake & Output 09/24/16 09/25/16 09/25/16 18:59 06:59 18:59 Intake Total 570 500 300 Output Total 400 Balance 170 500 300 Weight 110.3 kg 110 kg Intake: Oral 570 500 300 Output: Urine 400 Other: Voiding Method Toilet Toilet # Voids 1 2 # Bowel Movements 0 - Exam GENERAL EXAM: Alert, active, comfortable in no apparent distress. HEAD: Normocephalic. EYES: Normal reaction of pupils, equal size. NOSE: Clear with pink turbinates. THROAT: No erythema or exudates. NECK: No masses, no JVD. CHEST: No chest wall deformity. LUNGS: Equal air entry with no crackles, wheeze, rhonchi or dullness. CVS: S1 and S2 normal with audible murmurs, regular rhythm. ABDOMEN: No hepatosplenomegaly, normal bowel sounds, no guarding or rigidity. SPINE: No scoliosis or deformity SKIN: No rashes CENTRAL NERVOUS SYSTEM: No focal deficits, tone is normal in all 4 extremities. Extremities: There is no peripheral edema. No clubbing, no cyanosis. Peripheral pulses are intact. - Labs CBC & Chem 7: 09/23/16 17:35 09/24/16 05:33 Labs: Microbiology - Last 24 Hours (Table) 09/23/16 18:24 Urine Culture - Final Urine,Clean Catch Assessment and Plan Plan: Impression: #1 Dyspnea secondary to moderate to severe mitral insufficiency as well as severe aortic stenosis. The plan is for aortic valve replacement and mitral valve repair on 09/27/2016. He had normal coronary arteries. #2 Hypertension. #3 Hypothyroidism. #4 Hyperlipidemia. #5 History of thyroid cancer status post thyroidectomy. #6 History of smoking nearly 3 packs per day for 20 years but did quit back in 1979. He did smoke cigars on and off from [id number]. Plan: The patient was seen and evaluated by Dr. Armando. His PFTs were reviewed. The plan is for surgery on Tuesday. We will follow him in the postoperative setting for ventilator management and probable early extubation protocol. He is encouraged regarding the increased use of the incentive spirometer and cough and deep breathing exercises. We'll continue to follow and make further recommendations based on his clinical status.
--- NOTE | 2016-09-25 14:00 | P.PN ---
Subjective Principal diagnosis: Mitral regurg This is a pleasant 71-year-old gentleman with history of hypertension , hyperlipidemia, history of thyroid carcinoma treated with total thyroidectomy and radioactive iodine, recent CT of the chest suspicious for mild to moderate mediastinal adenopathy, mitral valve prolapse who developed symptoms of congestive heart failure progressive mitral regurgitation. A JAYDE examination was consistent with ruptured chordae, severe mitral regurgitation and moderate aortic valve insufficiency. Patient was advised to have a right and left heart catheterization, this was performed yesterday by Dr. Guadarrama. Cardiac catheterization revealed moderate to severe mitral regurgitation. Ectatic but normal coronary arteries. Moderate pulmonary hypertension. Ruptured chordae tendinae. Patient was seen in consultation by Dr. Riggs, cardiothoracic surgeon, he will be scheduled on Tuesday to undergo mitral valve repair and aortic valve replacement. Coumadin has been placed on hold. He is remaining in normal sinus rhythm. Objective - Vital Signs Vital signs: Vital Signs Temp 98.1 F 09/25/16 11:34 Pulse 73 09/25/16 11:34 Resp 16 09/25/16 11:34 BP 118/70 09/25/16 11:34 Pulse Ox 95 09/25/16 11:34 Intake & Output 09/24/16 09/25/16 09/25/16 18:59 06:59 18:59 Intake Total 570 500 540 Output Total 400 Balance 170 500 540 Weight 110.3 kg 110 kg Intake: Oral 570 500 540 Output: Urine 400 Other: Voiding Method Toilet Toilet # Voids 1 2 # Bowel Movements 0 - Exam PHYSICAL EXAMINATION: HEENT: Head is atraumatic, normocephalic. Pupils equal, round. Neck is supple. There is no elevated jugular venous pressure. HEART EXAMINATION: Heart S1-S2 holosystolic murmur is heard. CHEST EXAMINATION: Lungs are clear to auscultation and precussion. No chest wall tenderness is noted on palpation or with deep breathing. ABDOMEN: Soft, nontender. Bowel sounds are heard. No organomegaly noted. EXTREMITIES: 2+ peripheral pulses with no evidence of peripheral edema and no calf tenderness noted. NEUROLOGIC patient is awake, alert and oriented -3. . - Labs CBC & Chem 7: 09/23/16 17:35 09/24/16 05:33 Labs: Microbiology - Last 24 Hours (Table) 09/23/16 18:24 Urine Culture - Final Urine,Clean Catch Assessment and Plan (1) Severe mitral regurgitation Status: Acute (2) Hypothyroidism (acquired) Status: Acute (3) Moderate aortic insufficiency Status: Acute (4) Paroxysmal atrial fibrillation Status: Acute (5) Hypercholesterolemia Status: Acute (6) Hypertension Status: Acute Plan: We will continue to hold the patient's Coumadin, he is scheduled to undergo mitral valve repair and aortic valve replacement on Tuesday. We will continue to follow. DNP note has been reviewed, I agree with a documented findings and plan of care. Patient was seen and examined.
--- NOTE | 2016-09-25 14:48 | HP ---
DATE OF ADMISSION: CHIEF COMPLAINT: Shortness of breath and valvular heart disease. HISTORY OF PRESENT ILLNESS: This 71-year-old gentleman with a past medical history of hyperlipidemia, history of DJD, hypothyroidism, thyroid cancer being followed by Dr. Goodwin in the outpatient setting was recently evaluated by Cardiology. The patient had a cardiac catheterization, which showed severe mitral regurgitation, atrial fibrillation, CHF, and as well as possible ruptured chordae tendineae. The patient was also being evaluated by Dr. Riggs from cardiothoracic surgery. The patient is thought to have severe CHF secondary to severe mitral regurgitation and moderate aortic valve insufficiency, jet directed directly onto the mitral valve. The patient is scheduled for surgery on Tuesday. There is no history of fever, rigors. No history of headache, loss of consciousness or seizures. PAST MEDICAL HISTORY: Hyperlipidemia, hypertension, hypothyroidism, DJD, history of remote history of nicotine dependence. Medications prior to admission include home medications are: 1. Prinivil 20 mg p.o. daily. 2. Synthroid 150 mcg p.o. daily. 3. Lasix 40 mg daily. 4. Aspirin 81 mg daily. 5. Coumadin 5 mg p.o. daily. 6. K-Tab ER 10 mg p.o. daily. 7. Lopressor 50 mg p.o. b.i.d. 8. Mevacor 80 mg q.h.s. Allergies are none. FAMILY HISTORY: History of cancer, liver cancer, blood clot in the family. SOCIAL HISTORY: Occasional alcohol. Previous history of smoking. REVIEW OF SYSTEMS: ENT: No diminishing hearing or diminished vision. CARDIOVASCULAR: No angina or palpitation. Otherwise mentioned earlier. RESPIRATORY: No cough. GI: No nausea. : No dysuria. NERVOUS SYSTEM: No numbness or weakness. ALLERGY/IMMUNOLOGY: No asthma or hayfever. MUSCULOSKELETAL: As mentioned earlier. HEMATOLOGY/ONCOLOGY: As mentioned earlier. ENDOCRINE: As mentioned earlier. CONSTITUTIONAL: As mentioned earlier. DERMATOLOGY: Negative. RHEUMATOLOGY: Negative. PSYCHIATRY: As mentioned earlier. PHYSICAL EXAMINATION: The patient is alert and oriented x3. Pulse is 72, blood pressure 125/59, respirations 16, temperature 97.6, pulse ox 93% on room air. HEENT: Conjunctivae normal. Oral mucosa moist. NECK: No jugular venous distention. No carotid bruit. No lymph node enlargement. CARDIOVASCULAR: S1 and S2, muffled. No ejection systolic murmur. No S3, no S4. RESPIRATORY: Breath sounds diminished at the bases. A few scattered rhonchi and crackles. ABDOMEN: Soft, nontender. No mass palpable. LEGS: No edema, no swelling. NERVOUS SYSTEM: Higher function as mentioned. Moves all 4 limbs. No focal motor deficits. LYMPHATICS: No lymphadenopathy of neck, axillae or groin. SKIN: No ulcers, rashes or bleeding. LABS: CBC within normal limits. INR is 1.3. Sodium is 135. Glucose 114. Calcium is 8.2. HDL is 34. TSH is 23.4000 and free T4 is 1.28. Hepatitis panel is negative. ASSESSMENT: 1. Severe mitral regurgitation as well as moderate aortic regurgitation. 2. Congestive heart failure. 3. History of atrial fibrillation, paroxysmal. 4. Hyperlipidemia. 5. History of degenerative joint disease. 6. Hypothyroidism. 7. History of thyroid cancer. 8. History of thyroidectomy. 9. Remote history of nicotine dependence. 10. Obesity, body mass index of 34.8. 11. Chronic obstructive pulmonary disease. 12. A solitary pulmonary nodule 5.6 mm in the right middle lobe. RECOMMENDATIONS AND DISCUSSION: In this 71-year-old gentleman who presented with multiple complex medical issues, we will monitor the patient closely. At this time I would recommend continue with the current medication, continue with symptomatic treatment. Coumadin is on hold at this time. Will monitor blood pressure closely. Resume the home medications including the beta blockers. Otherwise, closely follow with cardiothoracic surgery. Repeat labs. MRSA screening was also ordered. Will follow the patient closely with Cardiology and Pulmonary also being consulted. Further recommendations to follow.
[2016-09-25] MEDS: ATORVASTATIN 20 MG TAB PO SCH (21:53)
[2016-09-26] MEDS: PANTOPRAZOLE 40 MG TABLET PO SCH (06:37)
[2016-09-26] MEDS: LEVOTHYROXINE 75 MCG TAB PO SCH (06:37)
[2016-09-26 06:39] LABS: Anisocytosis Slight; Basophils # (A) 0.1 k/uL (0-0.2); Basophils % (A) 1 %; CH 30.7; CHCM 33.5; Eosinophils # (A) 0.4 k/uL (0-0.7); Eosinophils % (A) 6 %; HCT 45.4 % (39.0-53.0); HDW 2.75; HGB 14.8 gm/dL (13.0-17.5); Luc # (Auto) 0.18; Luc % (Auto) 3; Lymphocytes # (A) 1.2 k/uL (1.0-4.8); Lymphocytes % (A) 19 %; MCH 29.9 pg (25.0-35.0); MCHC 32.5 g/dL (31.0-37.0); Mean Platelet Volume 7.3; Monocytes # (A) 0.5 k/uL (0-1.0); Monocytes % (A) 8 %; Neutrophils # (A) 3.9 k/uL (1.3-7.7); Neutrophils % (A) 64 %; RBC 4.94 m/uL (4.30-5.90); RDW 16.4 % (11.5-15.5); WBC 6.1 k/uL (3.8-10.6); WBC (Perox) 6.44
[2016-09-26 06:48] LABS: Anion Gap 9 mmol/L; Blood Urea Nitrogen 27 mg/dL (9-20); Calcium 8.3 mg/dL (8.4-10.2); Carbon Dioxide 32 mmol/L (22-30); Chloride 100 mmol/L (98-107); Glucose 109 mg/dL (74-99); Non-African American GFR(MDRD) 53 (>60 ml/min/1.73 sqM); Potassium 4.2 mmol/L (3.5-5.1); Sodium 141 mmol/L (137-145)
--- NOTE | 2016-09-26 08:15 | P.PN ---
Subjective Principal diagnosis: Severe mitral regurgitation, moderate aortic valvular insufficiency, congestive heart failure, history of paroxysmal atrial fibrillation, hypothyroidism, hypertension, and hyperlipidemia. Patient currently sitting up in bed in no apparent distress. No complaints at this time. All questions answered. Objective - Vital Signs Vital signs: Vital Signs Temp 98.7 F 09/26/16 03:58 Pulse 64 09/26/16 03:58 Resp 18 09/26/16 03:58 BP 116/67 09/26/16 03:58 Pulse Ox 93 L 09/26/16 03:58 Intake & Output 09/25/16 09/26/16 09/26/16 18:59 06:59 18:59 Intake Total 780 Balance 780 Weight 109.4 kg Intake: Oral 780 Other: Voiding Method Toilet # Voids 1 - Constitutional General appearance: Present: cooperative, no acute distress, obese - Respiratory Details: Lungs sounds diminished bilaterally. Respirations even, nonlabored. Currently on room air. Able to achieve 2000 mL on incentive spirometry. Effective cough. - Cardiovascular Details: S1, S2 present. Systolic murmur present. Regular rate and rhythm, normal sinus rhythm on telemetry. No events noted overnight. - Gastrointestinal Gastrointestinal Comment(s): Abdomen soft, nontender, nondistended round. Active bowel sounds 4 quadrants. Tolerating diet. - Genitourinary Genitourinary Comment(s): Continues to void clear, yellow urine per urinal. - Musculoskeletal Musculoskeletal: Present: gait normal, strength equal bilaterally - Psychiatric Psychiatric: Present: A&O x's 3, appropriate affect, intact judgment & insight - Allied health notes Allied health notes reviewed: nursing - Labs CBC & Chem 7: 09/26/16 05:56 09/26/16 05:56 Labs: Abnormal Lab Results - Last 24 Hours (Table) 09/26/16 09/26/16 09/26/16 Range/Units 05:56 05:56 05:56 RDW 16.4 H (11.5-15.5) % Carbon Dioxide 32 H (22-30) mmol/L BUN 27 H (9-20) mg/dL Creatinine 1.32 H (0.66-1.25) mg/dL Glucose 109 H (74-99) mg/dL Calcium 8.3 L (8.4-10.2) mg/dL Crossmatch See Detail Microbiology - Last 24 Hours (Table) 09/23/16 18:40 Nasal Screen MRSA/MSSA (QUINTIN) - Final Nasal Swab Assessment and Plan (1) Mitral valvular regurgitation Status: Acute (2) Moderate aortic insufficiency Status: Acute (3) Congestive heart failure due to valvular disease Status: Acute (4) Paroxysmal atrial fibrillation Status: Acute (5) Hypothyroidism (acquired) Status: Acute (6) Obesity Status: Acute (7) Hypercholesterolemia Status: Acute (8) Hypertension Status: Acute Plan: 1. Continue aspirin, Lipitor, Lopressor. 2. Encourage incentive spirometry use. 3. Anticipate aortic valve replacement with mitral valve repair tomorrow. 4. Preoperative teaching reinforced. 5. GI/DVT prophylaxis. 6. More recommendations as patient progresses. Time with Patient: Greater than 30
[2016-09-26] MEDS: METOPROLOL TARTRATE 50 MG TAB PO SCH ×2 (08:20→20:33)
[2016-09-26] MEDS: FUROSEMIDE 40 MG TAB PO SCH ×2 (08:20→14:51)
[2016-09-26] MEDS: ASPIRIN 81 MG CHEW PO SCH (08:20)
[2016-09-26] MEDS: POTASSIUM CHLORIDE ER 10 MEQ TAB.ER.PRT PO SCH (08:20)
--- NOTE | 2016-09-26 11:56 | P.PN ---
Subjective Progress note dated 09/26/2016 This is a patient who is apparently scheduled for valve surgery tomorrow. The patient is doing well. Feeling well. He has a history of hypertension hypothyroidism hyperlipidemia and valvular heart disease. Has both mitral and aortic regurgitation. Coronary arteries were clean. Surgery is anticipated tomorrow. Objective - Vital Signs Vital signs: Vital Signs Temp 97 F L 09/26/16 08:00 Pulse 66 09/26/16 11:36 Resp 17 09/26/16 11:36 BP 105/66 09/26/16 11:36 Pulse Ox 94 L 09/26/16 11:36 Intake & Output 09/25/16 09/26/16 09/26/16 18:59 06:59 18:59 Intake Total 780 180 Balance 780 180 Weight 109.4 kg Intake: Oral 780 180 Other: Voiding Method Toilet Toilet # Voids 1 - Exam No acute distress, oriented 3. HEENT examination is grossly unremarkable. Mucous membranes are moist. No oral lesions. Neck supple. Full range of motion. No adenopathy. Cardiovascular examination reveals regular rhythm rate. S1 and S2 normal. Systolic murmurs noted. No S3-S4. Lungs are clear breath sounds are equal. No wheezes rhonchi or crackles. Abdomen soft bowel sounds are heard. Extremities are intact. - Labs CBC & Chem 7: 09/26/16 05:56 09/26/16 05:56 Labs: Abnormal Lab Results - Last 24 Hours (Table) 09/26/16 09/26/16 09/26/16 Range/Units 05:56 05:56 05:56 RDW 16.4 H (11.5-15.5) % Carbon Dioxide 32 H (22-30) mmol/L BUN 27 H (9-20) mg/dL Creatinine 1.32 H (0.66-1.25) mg/dL Glucose 109 H (74-99) mg/dL Calcium 8.3 L (8.4-10.2) mg/dL Crossmatch See Detail Microbiology - Last 24 Hours (Table) 09/23/16 18:40 Nasal Screen MRSA/MSSA (QUINTIN) - Final Nasal Swab Assessment and Plan (1) Congestive heart failure due to valvular disease Status: Acute (2) Hypothyroidism (acquired) Status: Acute (3) Mitral valvular regurgitation Status: Acute (4) Moderate aortic insufficiency Status: Acute (5) Paroxysmal atrial fibrillation Status: Acute (6) Atrial fibrillation with RVR Status: Acute (7) Hypercholesterolemia Status: Acute (8) Hypertension Status: Acute Plan: Plan dated 09/24/2016 The patient should have a bedside spirometry. The patient will be seen by my partner after surgery on Tuesday. There is no contraindication to surgery from the pulmonary standpoint. The patient appears not to have any significant pulmonary disease. Patient likely be confirmed based on the spirometry. Plan dated 09/26/2016. The patient scheduled to have surgery tomorrow. I believe Dr. Riggs is doing the case. We'll continue to follow. I have not yet seen the spirometry but is a lifelong nonsmoker without history of any lung disease. Time with Patient: Less than 30
--- NOTE | 2016-09-26 14:56 | PN ---
Mr. Stevenson is a 71-year-old male who is scheduled to undergo aortic valve repair and aortic valve replacement. He is doing well this morning. He is ambulating without difficulty. He is denying any chest pain. No dizziness. No palpitation. No nausea. He continues to be at this time on aspirin, Lipitor, furosemide 40 mg twice a day. PHYSICAL EXAMINATION: Blood pressure 107/60 with a heart rate in the 70s. LUNGS: Clear. HEART: Regular rate and rhythm. S1 and S2, no S3, with holosystolic murmur at the apex. No rub. ABDOMEN: Soft, nontender. EXTREMITIES: No edema. Lab data revealed BUN and creatinine 27 and 1.32. Potassium 4.2. Hemoglobin of 14.8. IMPRESSION: 1. Mitral and aortic valve disease scheduled for surgical intervention. 2. Hypothyroidism. 3. Paroxysmal atrial fibrillation. 4. Hyperlipidemia. 5. Hypertension. RECOMMENDATION: Patient will proceed with surgical intervention tomorrow and depending on his progress, further recommendation will be made.
--- NOTE | 2016-09-26 16:34 | PN ---
DATE OF SERVICE: 09/26/2016 This 71 -year-old gentleman was admitted with severe mitral regurgitation as well as moderate aortic regurgitation, slated for valve surgery by cardiothoracic surgery. The patient being closely monitored. There is no history of any fever, rigors or chills. No history of headache, loss of consciousness or seizures. The patient also had elevated TSH. Please note that the dose of Synthroid was increased to 150 mcg every day recently. The patient is going to follow up in [place] in a couple months according to him. PHYSICAL EXAMINATION: Alert and oriented times three. Pulse 79, blood pressure 107/56, respiratory rate 17, temperature 97 degrees, pulse ox 94% on room air. HEENT: Conjunctivae normal. NECK: No jugular venous distention. CARDIOVASCULAR: S1, S2 muffled. early diastolic murmur also present. Otherwise, respiratory: A few rhonchi, no crackles. ABDOMEN: Soft. CENTRAL NERVOUS SYSTEM: No focal deficits. Labs CBC within normal limits. INR is 1.3 and the creatinine 1.32. TSH 3.400. ASSESSMENT: 1. Severe mitral regurgitation as well as moderate aortic regurgitation for surgery. 2. History of congestive heart failure. 3. History of atrial fibrillation, paroxysmal. 4. History of hyperlipidemia. 5. History of degenerative joint disease. 6. History of hypothyroidism. 7. History of thyroid cancer. 8. History of thyroidectomy. 9. Remote history of nicotine dependence. 10. Obesity body mass index of 34.8. 11. History of chronic obstructive pulmonary disease, pulmonary nodule, 5.6 cm right middle lobe. 12. FULL CODE. RECOMMENDATION: In this 71-year-old woman who presented with multiple valvular abnormalities, slated to have valve surgery tomorrow. We will continue to monitor. Please note that the dose of Synthroid has been increased recently and continue to monitor same dose despite high TSH value. Otherwise we will follow the patient closely with cardiothoracic surgery. Further recommendations to follow. MTDD
[2016-09-26] MEDS: ATORVASTATIN 20 MG TAB PO SCH (20:33)
[2016-09-27] MEDS ORDERED: METOPROLOL TARTRATE 12.5 MG TAB PO ONE (05:00)
[2016-09-27] MEDS ORDERED: PHENYLEPHRINE 40 MG in SODIUM CHLORIDE 0.9% 250 ML IV ONE (05:00)
[2016-09-27] MEDS ORDERED: MAGNESIUM SULFATE SYG 4.06 MEQ/ML SYRINGE IV ONE (05:00)
[2016-09-27] MEDS ORDERED: CARDIOPLEGIC SOLN (K+ 16 MEQ/L 1,000 ML with SODIUM BICARB (1 MEQ/ML) 20 ML, LIDOCAINE ... PERFUSION ONE ×6 (05:00→12:00)
[2016-09-27] MEDS ORDERED: CALCIUM CHLORIDE 100 MG/ML 10 ML SYRINGE IVP ONE (05:00)
[2016-09-27] MEDS ORDERED: PROTAMINE SULFATE 250 MG in EMPTY BAG 1 BAG IV ONE (05:00)
[2016-09-27] MEDS ORDERED: CHLORHEXIDINE GLUCONATE 15 ML CUP MUCOUS MEM ONE (05:00)
[2016-09-27] MEDS ORDERED: HEPARIN SODIUM,PORCINE 5,000 UNIT in SODIUM CHLORIDE 0.9% 500 ML IV ONE (05:00)
[2016-09-27] MEDS ORDERED: AMINOCAPROIC ACID 250 MG/ML 20 ML VIAL IV ONE (05:00)
[2016-09-27] MEDS ORDERED: ASPIRIN 325 MG TAB PO ONE (05:00)
[2016-09-27] MEDS ORDERED: ALBUMIN HUMAN 5% 500 ML in EMPTY BAG 1 BAG IVPB ONE ×6 (05:00)
[2016-09-27] MEDS ORDERED: PROPOFOL 500 MG in EMPTY BAG 1 BAG IV ONE (05:00)
[2016-09-27] MEDS ORDERED: AMINOCAPROIC ACID 5,000 MG in DEXTROSE 5% IN WATER 50 ML IV ONE ×4 (05:00)
[2016-09-27] MEDS ORDERED: HEPARIN SODIUM 1,000 UNIT/ML VIAL IV ONE (05:00)
[2016-09-27] MEDS ORDERED: NITROGLYCERIN-D5W PMX 25 MG/250 ML BTL IV ONE (05:00)
[2016-09-27] MEDS ORDERED: ceFAZolin 2 GM in SODIUM CHLORIDE 0.9% 30 ML IVPB ONE (05:00)
[2016-09-27] MEDS ORDERED: ceFAZolin 2,000 MG in SODIUM CHLORIDE 0.9% 30 ML IVPB ONE (05:00)
[2016-09-27] MEDS ORDERED: NITROGLYCERIN-D5W PMX 50 MG in DEXTROSE/WATER 1 250ML.BAG IV ONE (05:00)
[2016-09-27] MEDS ORDERED: MANNITOL 25% 12.5 GM/50 ML VIAL IV ONE ×2 (05:00)
[2016-09-27] MEDS ORDERED: CLEVIDIPINE BUTYRATE 25 MG in EMPTY BAG 1 BAG IV ONE (05:00)
[2016-09-27] MEDS ORDERED: PHENYLEPHRINE-0.9% NACL SYG 1 MG/10 ML SYRINGE IV ONE ×4 (05:00)
[2016-09-27] MEDS ORDERED: ceFAZolin 1,000 MG in SODIUM CHLORIDE 0.9% IRRIGATIO 1,000 ML IRRIGATION ONE (05:00)
[2016-09-27] MEDS ORDERED: SODIUM BICARB 8.4% 50 ML SYR (1 MEQ/ML) IV ONE (05:00)
[2016-09-27] MEDS ORDERED: PROTAMINE SULFATE 10 MG/ML 25 ML VIAL IV ONE (05:00)
[2016-09-27] MEDS ORDERED: ALBUMIN HUMAN 25% 50 ML in EMPTY BAG 1 BAG IVPB ONE (05:00)
[2016-09-27] MEDS ORDERED: NOREPINEPHRINE 4 MG in SODIUM CHLORIDE 0.9% 250 ML IV ONE (05:00)
[2016-09-27 06:38] LABS: Anisocytosis Slight; Basophils % (A) 1 %; CH 30.8; CHCM 33.8; Eosinophils # (A) 0.4 k/uL (0-0.7); Eosinophils % (A) 6 %; HCT 45.8 % (39.0-53.0); HDW 2.82; HGB 15.3 gm/dL (13.0-17.5); Luc # (Auto) 0.21; Luc % (Auto) 3; Lymphocytes # (A) 1.3 k/uL (1.0-4.8); Lymphocytes % (A) 20 %; MCH 30.4 pg (25.0-35.0); MCHC 33.3 g/dL (31.0-37.0); MCV 91.3 fL (80.0-100.0); Mean Platelet Volume 7.3; Monocytes # (A) 0.4 k/uL (0-1.0); Monocytes % (A) 6 %; Neutrophils % (A) 64 %; RBC 5.02 m/uL (4.30-5.90); RDW 16.5 % (11.5-15.5); WBC 6.3 k/uL (3.8-10.6); WBC (Perox) 6.57
[2016-09-27 06:46] LABS: Anion Gap 13 mmol/L; Blood Urea Nitrogen 31 mg/dL (9-20); Calcium 8.4 mg/dL (8.4-10.2); Carbon Dioxide 25 mmol/L (22-30); Chloride 101 mmol/L (98-107); Glucose 102 mg/dL (74-99); Non-African American GFR(MDRD) 59 (>60 ml/min/1.73 sqM); Potassium 3.9 mmol/L (3.5-5.1); Sodium 139 mmol/L (137-145)
[2016-09-27] MEDS ORDERED: MAGNESIUM SULFATE-D5W PMX 1 GM/100 ML BAG IVPB ONE (08:02)
[2016-09-27] MEDS ORDERED: PROTAMINE SULFATE 10 MG/ML 5 ML VIAL IV ONE (08:02)
[2016-09-27] MEDS ORDERED: VECURONIUM 10 MG VIAL IV ONE (08:02)
[2016-09-27] MEDS ORDERED: fentaNYL (PF) 50 MCG/ML 50 ML VIAL ONE (08:02)
[2016-09-27] MEDS ORDERED: LIDOCAINE 2% SYG (PF) 100 MG/5 ML ONE (08:02)
[2016-09-27] MEDS ORDERED: NEOSTIGMINE 1 MG/ML 10 ML VIAL ONE (08:02)
[2016-09-27] MEDS ORDERED: SODIUM BICARB 8.4% 50 ML SYR (1 MEQ/ML) ONE (08:02)
[2016-09-27] MEDS ORDERED: HEPARIN SODIUM,PORCINE 10,000 UNIT/ML 1 ML VIAL ONE (08:02)
[2016-09-27] MEDS ORDERED: ELECTROLYTE-R (PH 7.4) 1,000 ML IV.SOLN IV ONE (08:02)
[2016-09-27] MEDS ORDERED: MIDAZOLAM 2 MG/2 ML VIAL ONE (08:02)
[2016-09-27] MEDS ORDERED: SODIUM CHLORIDE 0.9% 1,000 ML BAG ONE (08:02)
[2016-09-27 08:50] LABS: Glucose,Whole Blood 126 mg/dL (75-99)
[2016-09-27 09:27] LABS: Glucose,Whole Blood 124 mg/dL (75-99)
[2016-09-27 10:12] LABS: Glucose,Whole Blood 127 mg/dL (75-99)
[2016-09-27 11:07] LABS: Glucose,Whole Blood 145 mg/dL (75-99)
[2016-09-27] MEDS ORDERED: SODIUM CHLORIDE 0.9% 99 ML with VASOPRESSIN 20 UNIT IV SCH ×2 (11:15)
[2016-09-27 11:46] LABS: Glucose,Whole Blood 159 mg/dL (75-99)
[2016-09-27 12:10] LABS: Glucose,Whole Blood 176 mg/dL (75-99)
[2016-09-27 12:43] LABS: Glucose,Whole Blood 164 mg/dL (75-99)
[2016-09-27 13:20] LABS: Glucose,Whole Blood 174 mg/dL (75-99)
[2016-09-27 13:41] LABS: Glucose,Whole Blood 178 mg/dL (75-99)
[2016-09-27] MEDS ORDERED: PHENYLEPHRINE 40 MG in SODIUM CHLORIDE 0.9% 250 ML IV SCH (15:00)
[2016-09-27 15:38] LABS: Glucose,Whole Blood 132 mg/dL (75-99)
[2016-09-27] MEDS ORDERED: Phosphorus Replacement Protoco 1 EACH MISC MISCELLANE PRN (15:43)
[2016-09-27] MEDS ORDERED: CALCIUM GLUCONATE 2,000 MG in SODIUM CHLORIDE 0.9% 100 ML IVPB PRN (15:43)
[2016-09-27] MEDS ORDERED: METOCLOPRAMIDE 5 MG/ML 2 ML VIAL IVP PRN (15:43)
[2016-09-27] MEDS ORDERED: MORPHINE SULFATE 2 MG/ML SYRINGE IVP PRN (15:43)
[2016-09-27] MEDS ORDERED: ONDANSETRON 4 MG/2 ML VIAL IVP PRN (15:43)
[2016-09-27] MEDS ORDERED: CLEVIDIPINE BUTYRATE 25 MG in EMPTY BAG 1 BAG IV SCH (15:43)
[2016-09-27] MEDS ORDERED: Magnesium Replacement Protocol 1 EACH MISC MISCELLANE PRN (15:43)
[2016-09-27] MEDS ORDERED: Potassium Replacement Protocol 1 EACH MISC MISCELLANE PRN ×2 (15:43→16:37)
[2016-09-27 15:44] LABS: Glucose,Whole Blood 120 mg/dL (75-99)
--- NOTE | 2016-09-27 16:07 | XR ---
EXAMINATION TYPE: XR chest 1V portable DATE OF EXAM: 09/27/2016 3:59 PM CLINICAL HISTORY: Post open cardiac surgery.. TECHNIQUE: Single AP portable semi-upright view of the chest is obtained. COMPARISON: Chest x-ray from September 23, 2016. CT chest September 24, 2016. FINDINGS: Bilateral chest tubes are now present. Mediastinal drainage catheter is seen. Post CABG ch anges with mediastinal clips and sternal wires is noted. There is endotracheal tube with tip right at carinal level, recommend pulling back 4 cm. There is orogastric tube projecting below left hemidiaph ragm. There is right internal jugular [place]-Galilea catheter with tip in right lower lobe pulmonary arter y. There is new bibasilar opacity. No sizable pneumothorax is evident. There is stable cardiomegaly. Oss eous structures are intact. IMPRESSION: 1. Endotracheal tube tip is at level of linwood, recommend pulling back 4-5 cm. Other tubes and lines felt satisfactory. 2. Persistent cardiomegaly with new bilateral lower lung infiltrate and/or edema present.
[2016-09-27 16:12] LABS: Glucose,Whole Blood 125 mg/dL (75-99)
[2016-09-27] MEDS: ALBUMIN HUMAN 5% 250 ML in EMPTY BAG 1 BAG IVPB PRN ×4 (16:13→21:33)
[2016-09-27 16:20] LABS: Ionized Calcium 4.9 mg/dL (4.5-5.3)
[2016-09-27 16:24] LABS: Anisocytosis Slight; Basophils % (A) 0 %; CH 30.6; CHCM 33.4; Eosinophils # (A) 0.1 k/uL (0-0.7); Eosinophils % (A) 1 %; HCT 31.9 % (39.0-53.0); HDW 2.86; Luc # (Auto) 0.05; Luc % (Auto) 1; Lymphocytes # (A) 0.7 k/uL (1.0-4.8); Lymphocytes % (A) 10 %; MCH 30.6 pg (25.0-35.0); MCHC 33.3 g/dL (31.0-37.0); MCV 91.9 fL (80.0-100.0); Mean Platelet Volume 8.1; Monocytes # (A) 0.3 k/uL (0-1.0); Monocytes % (A) 4 %; Neutrophils # (A) 5.6 k/uL (1.3-7.7); Neutrophils % (A) 85 %; RBC 3.47 m/uL (4.30-5.90); RDW 16.5 % (11.5-15.5); WBC 6.7 k/uL (3.8-10.6); WBC (Perox) 6.97
[2016-09-27 16:26] LABS: ALT 30 U/L (21-72); AST 85 U/L (17-59); Alkaline Phosphatase 37 U/L (38-126); Anion Gap 8 mmol/L; Blood Urea Nitrogen 23 mg/dL (9-20); Calcium 7.8 mg/dL (8.4-10.2); Carbon Dioxide 26 mmol/L (22-30); Chloride 106 mmol/L (98-107); Glucose 120 mg/dL (74-99); Magnesium 3.9 mg/dL (1.6-2.3); Non-African American GFR(MDRD) >60 (>60 ml/min/1.73 sqM); Potassium 3.8 mmol/L (3.5-5.1); Sodium 140 mmol/L (137-145); Total Bilirubin 1.4 mg/dL (0.2-1.3); Total Protein 4.7 g/dL (6.3-8.2)
[2016-09-27 16:27] LABS: HGB 10.6 gm/dL (13.0-17.5)
[2016-09-27 16:28] LABS: ABG HCO3 25 mmol/L (21-25); ABG PCO2 56 mmHg (35-45); ABG PH 7.28 (7.35-7.45); ABG PO2 220 mmHg (83-108); ABG TCO2 27 mmol/L (19-24)
[2016-09-27 16:28] LABS: INR 1.2 (<1.1); Prothrombin Time 11.9 sec (9.0-12.0)
[2016-09-27 16:29] LABS: ABG Base Excess -0.7 mmol/L
[2016-09-27] MEDS: LACTATED RINGERS 1,000 ML IV SCH (16:47)
[2016-09-27] MEDS: ceFAZolin 2 GM in SODIUM CHLORIDE 0.9% 100 ML IVPB SCH (16:47)
[2016-09-27 16:55] LABS: ABG PCO2 44 mmHg (35-45); ABG PH 7.36 (7.35-7.45)
[2016-09-27 16:56] LABS: ABG Base Excess -0.6 mmol/L; ABG HCO3 24 mmol/L (21-25); ABG PO2 153 mmHg (83-108); ABG TCO2 26 mmol/L (19-24)
[2016-09-27] MEDS ORDERED: PROPOFOL 500 MG in EMPTY BAG 1 BAG IV SCH (17:00)
[2016-09-27] MEDS ORDERED: NITROGLYCERIN-D5W PMX 50 MG in DEXTROSE/WATER 1 250ML.BAG IV SCH (17:00)
[2016-09-27 17:10] LABS: Glucose,Whole Blood 134 mg/dL (75-99)
[2016-09-27] MEDS: IPRATROPIUM-ALBUTEROL 3 ML NEB INHALATION SCH ×3 (17:14→22:58)
[2016-09-27] MEDS: POTASSIUM CHLORIDE 10 MEQ in WATER FOR INJECTION 1 100ML.BAG IVPB SCH ×2 (17:26→17:59)
[2016-09-27] MEDS ORDERED: ALBUMIN HUMAN 5% 250 ML IVPB ONE (17:37)
[2016-09-27] MEDS: ACETAMINOPHEN IV (For NPO) 1,000 MG in EMPTY BAG 1 BAG IVPB SCH ×2 (18:00→23:17)
[2016-09-27 18:07] LABS: Glucose,Whole Blood 99 mg/dL (75-99)
[2016-09-27 18:55] LABS: Anisocytosis Slight; Basophils % (A) 0 %; CH 30.4; CHCM 32.8; Eosinophils % (A) 1 %; HCT 27.6 % (39.0-53.0); HDW 2.92; HGB 9.5 gm/dL (13.0-17.5); Luc # (Auto) 0.08; Luc % (Auto) 1; Lymphocytes # (A) 0.4 k/uL (1.0-4.8); Lymphocytes % (A) 5 %; MCH 32.1 pg (25.0-35.0); MCHC 34.4 g/dL (31.0-37.0); MCV 93.3 fL (80.0-100.0); Mean Platelet Volume 7.6; Monocytes # (A) 0.4 k/uL (0-1.0); Monocytes % (A) 6 %; Neutrophils # (A) 5.8 k/uL (1.3-7.7); Neutrophils % (A) 87 %; RBC 2.96 m/uL (4.30-5.90); RDW 16.7 % (11.5-15.5); WBC 6.7 k/uL (3.8-10.6); WBC (Perox) 7.13
[2016-09-27 19:00] LABS: Glucose,Whole Blood 121 mg/dL (75-99)
[2016-09-27] MEDS: INSULIN REGULAR 100 UNIT in SODIUM CHLORIDE 0.9% 100 ML IV SCH ×2 (19:26→22:08)
--- NOTE | 2016-09-27 19:26 | P.PN ---
Subjective 71-year-old male patient underwent aortic valve replacement and mitral valve repair. Patient is postop day #0. I saw this patient immediately after he arrived to the intensive care unit. The patient was still quite sedated and he was intubated on a mechanical ventilator. I reviewed the initial postsurgical chest x-ray which showed some atelectatic changes within the right lower lobe. ET tube was in a good location. The patient's chest tube were all in good location. Initial blood gases showed a pH of 7.28 with a pCO2 of 56 and pO2 of 220 and based on that the patient was placed on a tidal volume of 700 with a rate of 12. Currently he is on IA PEEP of 10 and FiO2 of 60%. Subsequent blood gases showed a pH of 7.36 with a pCO2 of 44 and pO2 of 53. The patient has 2 mediastinal chest tubes, and right pleural and the left pleural chest tube. The cardiac output of this point is at 6.6 with an index of 2.24. The CVP is at 19. The mean pulmonary artery pressure is 19. The patient is currently on no pressors. Most recent mean arterial pressure is at 18 the patient is producing adequate amount of urine output. The patient already received a total of 5 is of 12.5 g of albumin. Objective - Vital Signs Vital signs: Vital Signs Temp 97.5 F L 09/27/16 16:43 Pulse 72 09/27/16 16:43 Resp 19 09/27/16 16:43 BP 112/64 09/27/16 16:43 Pulse Ox 95 09/27/16 16:43 Intake & Output 09/27/16 09/27/16 09/28/16 06:59 18:59 06:59 Intake Total 2012 Output Total 5934 Balance -3921 Weight 109.5 kg Intake: IV 32 Intake, IV Titration 352 Amount Albumin Human 5% 250 ml 250 As IVPB .[facility] Rx#: [id number] Insulin Regular 100 unit 2 In Sodium Chloride 0.9% 100 ml @ Per Protocol IV .Q0M [facility] Rx#:[id number] Lactated Ringers 1,000 ml 100 @ 50 mls/hr IV .Q20H [facility] Rx#:[id number] Blood Product 1629 Ffp 24 Cpd Unit 316 [id number] Ffp 24 Cpd Unit 283 [id number] Ffp 24 Cpd Unit 295 [id number] Ffp 24 Cpd Unit 323 [id number] Platelet Irr Pheresis 2 203 Acda Unit [id number] Platelet Pheresis Acda3 209 Unit [id number] Output: Chest Tube Drainage 234 Chest Tube Left Anterior 108 Chest Chest Tube Mediastinal 126 Chest Tube Right Lateral 0 Chest Urine 700 Estimated Blood Loss 5000 Other: Voiding Method Toilet # Voids 2 60 ABP, PAP, CO, CI - Last Documented Arterial Blood Pressure 136/64 Pulmonary Artery Pressure 48/28 Cardiac Output 4.4 - Exam Head exam was generally normal. There was no scleral icterus or corneal arcus. Mucous membranes were moist.Neck was supple and without jugular venous distension, thyromegaly, or carotid bruits. Carotids were easily palpable bilaterally. There was no adenopathy. Patient has orogastric and orotracheal tube are both in place. The patient has a right IJ [place]-Galilea catheter in place. Lung sounds are equal and symmetrical bilaterally. No wheezes or rhonchi.Cardiac exam revealed the PMI to be normally situated and sized. The rhythm was regular and no extrasystoles were noted during several minutes of auscultation. The first and second heart sounds were normal and physiologic splitting of the second heart sound was noted. There were no murmurs, rubs, clicks, or gallops. Sternum is stable clean and intact. The chest tubes are all in place. The patient has 2 mediastinal, right pleural and left pleural chest tube. Abdominal exam revealed normal bowel sounds. The abdomen was soft, non-tender, and without masses, organomegaly, or appreciable enlargement of the abdominal aorta.Examination of the extremities revealed easily palpable radial, femoral and pedal pulses. There was no cyanosis, clubbing or edema. - Labs CBC & Chem 7: 09/27/16 18:39 09/27/16 15:25 Labs: Abnormal Lab Results - Last 24 Hours (Table) 09/26/16 09/27/16 09/27/16 Range/Units 05:56 05:31 05:34 RBC (4.30-5.90) m/uL Hgb (13.0-17.5) gm/dL Hct (39.0-53.0) % RDW 16.5 H (11.5-15.5) % Plt Count (150-450) k/uL Lymphocytes # (1.0-4.8) k/uL ABG pH (7.35-7.45) ABG pCO2 (35-45) mmHg ABG pO2 (83-108) mmHg ABG Total CO2 (19-24) mmol/L ABG O2 Saturation (94-97) % BUN 31 H (9-20) mg/dL Glucose 102 H (74-99) mg/dL POC Glucose (mg/dL) (75-99) mg/dL Calcium (8.4-10.2) mg/dL Magnesium (1.6-2.3) mg/dL Total Bilirubin (0.2-1.3) mg/dL AST (17-59) U/L Alkaline Phosphatase (38-126) U/L Total Protein (6.3-8.2) g/dL Albumin (3.5-5.0) g/dL Crossmatch See Detail 09/27/16 09/27/16 09/27/16 Range/Units 08:37 09:06 10:10 RBC (4.30-5.90) m/uL Hgb (13.0-17.5) gm/dL Hct (39.0-53.0) % RDW (11.5-15.5) % Plt Count (150-450) k/uL Lymphocytes # (1.0-4.8) k/uL ABG pH (7.35-7.45) ABG pCO2 (35-45) mmHg ABG pO2 (83-108) mmHg ABG Total CO2 (19-24) mmol/L ABG O2 Saturation (94-97) % BUN (9-20) mg/dL Glucose (74-99) mg/dL POC Glucose (mg/dL) 126 H 124 H 127 H (75-99) mg/dL Calcium (8.4-10.2) mg/dL Magnesium (1.6-2.3) mg/dL Total Bilirubin (0.2-1.3) mg/dL AST (17-59) U/L Alkaline Phosphatase (38-126) U/L Total Protein (6.3-8.2) g/dL Albumin (3.5-5.0) g/dL Crossmatch 09/27/16 09/27/16 09/27/16 Range/Units 10:53 11:34 12:09 RBC (4.30-5.90) m/uL Hgb (13.0-17.5) gm/dL Hct (39.0-53.0) % RDW (11.5-15.5) % Plt Count (150-450) k/uL Lymphocytes # (1.0-4.8) k/uL ABG pH (7.35-7.45) ABG pCO2 (35-45) mmHg ABG pO2 (83-108) mmHg ABG Total CO2 (19-24) mmol/L ABG O2 Saturation (94-97) % BUN (9-20) mg/dL Glucose (74-99) mg/dL POC Glucose (mg/dL) 145 H 159 H 176 H (75-99) mg/dL Calcium (8.4-10.2) mg/dL Magnesium (1.6-2.3) mg/dL Total Bilirubin (0.2-1.3) mg/dL AST (17-59) U/L Alkaline Phosphatase (38-126) U/L Total Protein (6.3-8.2) g/dL Albumin (3.5-5.0) g/dL Crossmatch 09/27/16 09/27/16 09/27/16 Range/Units 12:41 13:17 13:38 RBC (4.30-5.90) m/uL Hgb (13.0-17.5) gm/dL Hct (39.0-53.0) % RDW (11.5-15.5) % Plt Count (150-450) k/uL Lymphocytes # (1.0-4.8) k/uL ABG pH (7.35-7.45) ABG pCO2 (35-45) mmHg ABG pO2 (83-108) mmHg ABG Total CO2 (19-24) mmol/L ABG O2 Saturation (94-97) % BUN (9-20) mg/dL Glucose (74-99) mg/dL POC Glucose (mg/dL) 164 H 174 H 178 H (75-99) mg/dL Calcium (8.4-10.2) mg/dL Magnesium (1.6-2.3) mg/dL Total Bilirubin (0.2-1.3) mg/dL AST (17-59) U/L Alkaline Phosphatase (38-126) U/L Total Protein (6.3-8.2) g/dL Albumin (3.5-5.0) g/dL Crossmatch 09/27/16 09/27/16 09/27/16 Range/Units 15:23 15:25 15:25 RBC 3.47 L (4.30-5.90) m/uL Hgb 10.6 L D (13.0-17.5) gm/dL Hct 31.9 L (39.0-53.0) % RDW 16.5 H (11.5-15.5) % Plt Count 123 L (150-450) k/uL Lymphocytes # 0.7 L (1.0-4.8) k/uL ABG pH (7.35-7.45) ABG pCO2 (35-45) mmHg ABG pO2 (83-108) mmHg ABG Total CO2 (19-24) mmol/L ABG O2 Saturation (94-97) % BUN 23 H (9-20) mg/dL Glucose 120 H (74-99) mg/dL POC Glucose (mg/dL) 132 H (75-99) mg/dL Calcium 7.8 L (8.4-10.2) mg/dL Magnesium 3.9 H (1.6-2.3) mg/dL Total Bilirubin 1.4 H (0.2-1.3) mg/dL AST 85 H (17-59) U/L Alkaline Phosphatase 37 L (38-126) U/L Total Protein 4.7 L (6.3-8.2) g/dL Albumin 2.5 L (3.5-5.0) g/dL Crossmatch 09/27/16 09/27/16 09/27/16 Range/Units 15:43 16:10 16:17 RBC (4.30-5.90) m/uL Hgb (13.0-17.5) gm/dL Hct (39.0-53.0) % RDW (11.5-15.5) % Plt Count (150-450) k/uL Lymphocytes # (1.0-4.8) k/uL ABG pH 7.28 L (7.35-7.45) ABG pCO2 56 H (35-45) mmHg ABG pO2 220 H (83-108) mmHg ABG Total CO2 27 H (19-24) mmol/L ABG O2 Saturation 100.0 H (94-97) % BUN (9-20) mg/dL Glucose (74-99) mg/dL POC Glucose (mg/dL) 120 H 125 H (75-99) mg/dL Calcium (8.4-10.2) mg/dL Magnesium (1.6-2.3) mg/dL Total Bilirubin (0.2-1.3) mg/dL AST (17-59) U/L Alkaline Phosphatase (38-126) U/L Total Protein (6.3-8.2) g/dL Albumin (3.5-5.0) g/dL Crossmatch 09/27/16 09/27/16 09/27/16 Range/Units 16:47 17:04 18:39 RBC 2.96 L (4.30-5.90) m/uL Hgb 9.5 L (13.0-17.5) gm/dL Hct 27.6 L (39.0-53.0) % RDW 16.7 H (11.5-15.5) % Plt Count (150-450) k/uL Lymphocytes # (1.0-4.8) k/uL ABG pH (7.35-7.45) ABG pCO2 (35-45) mmHg ABG pO2 153 H (83-108) mmHg ABG Total CO2 26 H (19-24) mmol/L ABG O2 Saturation 99.0 H (94-97) % BUN (9-20) mg/dL Glucose (74-99) mg/dL POC Glucose (mg/dL) 134 H (75-99) mg/dL Calcium (8.4-10.2) mg/dL Magnesium (1.6-2.3) mg/dL Total Bilirubin (0.2-1.3) mg/dL AST (17-59) U/L Alkaline Phosphatase (38-126) U/L Total Protein (6.3-8.2) g/dL Albumin (3.5-5.0) g/dL Crossmatch 09/27/16 Range/Units 18:59 RBC (4.30-5.90) m/uL Hgb (13.0-17.5) gm/dL Hct (39.0-53.0) % RDW (11.5-15.5) % Plt Count (150-450) k/uL Lymphocytes # (1.0-4.8) k/uL ABG pH (7.35-7.45) ABG pCO2 (35-45) mmHg ABG pO2 (83-108) mmHg ABG Total CO2 (19-24) mmol/L ABG O2 Saturation (94-97) % BUN (9-20) mg/dL Glucose (74-99) mg/dL POC Glucose (mg/dL) 121 H (75-99) mg/dL Calcium (8.4-10.2) mg/dL Magnesium (1.6-2.3) mg/dL Total Bilirubin (0.2-1.3) mg/dL AST (17-59) U/L Alkaline Phosphatase (38-126) U/L Total Protein (6.3-8.2) g/dL Albumin (3.5-5.0) g/dL Crossmatch Microbiology - Last 24 Hours (Table) 09/27/16 09:33 Anaerobic Culture - Preliminary Lymph Node 09/27/16 09:33 Tissue Culture - Preliminary Lymph Node Assessment and Plan Plan: Assessment 1 status post aortic valve replacement and mitral valve repair, patient is postop day #1. Preoperative disease included severe mitral regurgitation and moderate degree of aortic valve insufficiency. Postop day 0. 2 post thoracotomy, still on a mechanical ventilator. 3 postoperative right lower lobe atelectatic segmental changes 4 severe mitral regurgitation and aortic valve insufficiency, preoperatively 5 approximately 2 fibrillation, current rhythm is sinus 6 postoperative anemia with a hemoglobin of 9.5 7 hypothyroidism, post thyroidectomy for thyroid cancer 8 hyperlipidemia 9 hypertension Plan Continue vent support. Put the patient assist-control mode of ventilation. Keep the tidal volume of 700. Drop the FiO2 down gradually to maintain a saturation above 95%. Gradually wean the PEEP following that. Continue monitoring the hemodynamics. The patient has been adequately fluid resuscitated. Monitor the hemoglobin. Monitor the output from the chest tube. Gradual wean off the mechanical ventilator. We'll check consider weaning parameters once the patient's vaccinations further improved and proceed with weaning trial if the patient shows have adequate candidacy for further weaning. We'll follow. Case was discussed with Dr. Jae Riggs from CT surgery. There is a critically care evaluation that was done and 35 minutes. Time with Patient: Greater than 30
[2016-09-27 19:33] LABS: Glucose,Whole Blood 169 mg/dL (75-99)
[2016-09-27 20:32] LABS: Glucose,Whole Blood 173 mg/dL (75-99)
[2016-09-27 20:37] LABS: Anisocytosis Slight; CH 30.5; CHCM 33.5; HCT 28.5 % (39.0-53.0); HDW 2.94; HGB 9.6 gm/dL (13.0-17.5); MCH 30.8 pg (25.0-35.0); MCHC 33.8 g/dL (31.0-37.0); MCV 91.3 fL (80.0-100.0); Mean Platelet Volume 8.2; RBC 3.12 m/uL (4.30-5.90); RDW 16.6 % (11.5-15.5)
[2016-09-27 20:53] LABS: Ionized Calcium 4.5 mg/dL (4.5-5.3)
[2016-09-27 20:55] LABS: Anion Gap 11 mmol/L; Blood Urea Nitrogen 24 mg/dL (9-20); Calcium 7.6 mg/dL (8.4-10.2); Carbon Dioxide 23 mmol/L (22-30); Chloride 106 mmol/L (98-107); Glucose 154 mg/dL (74-99); Magnesium 3.2 mg/dL (1.6-2.3); Non-African American GFR(MDRD) >60 (>60 ml/min/1.73 sqM); Phosphorous 4.5 mg/dL (2.5-4.5); Potassium 4.1 mmol/L (3.5-5.1); Sodium 140 mmol/L (137-145)
[2016-09-27 21:34] LABS: Glucose,Whole Blood 179 mg/dL (75-99)
--- NOTE | 2016-09-27 21:35 | PN ---
DATE OF SERVICE: 09/27/2016 This 71-year-old gentleman, admitted with mitral valvular disease, is slated for cardiac surgery. No chest pain. No palpitation. No fever.
[2016-09-27 22:21] LABS: Glucose,Whole Blood 179 mg/dL (75-99)
[2016-09-27 23:05] LABS: Glucose,Whole Blood 170 mg/dL (75-99)
[2016-09-28 00:02] LABS: ABG Base Excess -1.9 mmol/L; ABG HCO3 22 mmol/L (21-25); ABG PCO2 36 mmHg (35-45); ABG PH 7.41 (7.35-7.45); ABG PO2 66 mmHg (83-108); ABG TCO2 23 mmol/L (19-24)
[2016-09-28 00:15] LABS: Glucose,Whole Blood 158 mg/dL (75-99)
[2016-09-28] MEDS: ALBUMIN HUMAN 5% 250 ML in EMPTY BAG 1 BAG IVPB PRN ×2 (01:05→06:30)
[2016-09-28 01:28] LABS: Glucose,Whole Blood 159 mg/dL (75-99)
[2016-09-28] MEDS: ceFAZolin 2 GM in SODIUM CHLORIDE 0.9% 100 ML IVPB SCH ×2 (01:43→09:24)
[2016-09-28] MEDS: HEPARIN SODIUM,PORCINE 5,000 UNIT/ML 1 ML VIAL SQ SCH ×3 (01:44→17:47)
[2016-09-28 02:22] LABS: Glucose,Whole Blood 148 mg/dL (75-99)
[2016-09-28 03:11] LABS: Glucose,Whole Blood 141 mg/dL (75-99)
[2016-09-28 04:07] LABS: Glucose,Whole Blood 132 mg/dL (75-99)
[2016-09-28 04:20] LABS: Ionized Calcium 4.5 mg/dL (4.5-5.3)
[2016-09-28 04:27] LABS: ALT 32 U/L (21-72); AST 94 U/L (17-59); Alkaline Phosphatase 37 U/L (38-126); Anion Gap 12 mmol/L; Blood Urea Nitrogen 24 mg/dL (9-20); Calcium 7.6 mg/dL (8.4-10.2); Carbon Dioxide 24 mmol/L (22-30); Chloride 108 mmol/L (98-107); Glucose 119 mg/dL (74-99); Non-African American GFR(MDRD) >60 (>60 ml/min/1.73 sqM); Potassium 4.1 mmol/L (3.5-5.1); Sodium 144 mmol/L (137-145); Total Bilirubin 0.8 mg/dL (0.2-1.3); Total Protein 5.1 g/dL (6.3-8.2)
[2016-09-28 04:31] LABS: Anisocytosis Slight; Basophils % (A) 0 %; CH 30.3; CHCM 33.6; Eosinophils % (A) 0 %; HCT 25.9 % (39.0-53.0); HDW 2.98; HGB 9.2 gm/dL (13.0-17.5); Luc # (Auto) 0.05; Luc % (Auto) 1; Lymphocytes # (A) 0.3 k/uL (1.0-4.8); Lymphocytes % (A) 4 %; MCHC 35.3 g/dL (31.0-37.0); MCV 90.7 fL (80.0-100.0); Mean Platelet Volume 8.9; Monocytes # (A) 0.3 k/uL (0-1.0); Monocytes % (A) 4 %; Neutrophils % (A) 91 %; RBC 2.86 m/uL (4.30-5.90); RDW 16.6 % (11.5-15.5); WBC 7.7 k/uL (3.8-10.6); WBC (Perox) 7.83
[2016-09-28] MEDS ORDERED: ATROPINE SULFATE 0.1 MG/ML 10ML SYRINGE ONE (04:33)
[2016-09-28 05:10] LABS: Glucose,Whole Blood 138 mg/dL (75-99)
[2016-09-28 05:37] LABS: INR 1.2 (<1.1); Partial Thromboplastin Time 25.9 sec (22.0-30.0); Prothrombin Time 11.8 sec (9.0-12.0)
[2016-09-28 06:09] LABS: Glucose,Whole Blood 140 mg/dL (75-99)
[2016-09-28] MEDS: ACETAMINOPHEN IV (For NPO) 1,000 MG in EMPTY BAG 1 BAG IVPB SCH ×3 (06:54→20:03)
[2016-09-28 07:12] LABS: Glucose,Whole Blood 146 mg/dL (75-99)
[2016-09-28 08:06] LABS: Glucose,Whole Blood 119 mg/dL (75-99)
--- NOTE | 2016-09-28 08:35 | XR ---
EXAMINATION TYPE: XR chest 1V portable DATE OF EXAM: 09/28/2016 6:15 AM Comparison: 09/27/2016 Clinical History: 71 year-old male post Operative Cardiac Surgery Findings: Bilateral chest tubes remain in place without appreciable pneumothorax. The heart remains upper limit s of normal in size. Patchy bibasilar opacities persist but show interval improvement. Median sternot [place] wires with post-CABG changes. Right IJ [place]-Galilea catheter remains in place with catheter tip in t he right interlobar pulmonary artery. Mild diffuse interstitial prominence and low lung volumes after extubation. NG tube also removed. Impression: 1. Hypoventilatory changes after extubation. Correlate to exclude mild pulmonary vascular congestion. 2. Bibasilar areas of edema or infiltrates show partial improvement.
[2016-09-28 08:51] LABS: Glucose,Whole Blood 173 mg/dL (75-99)
[2016-09-28] MEDS ORDERED: CLOPIDOGREL 75 MG TAB PO SCH (09:00)
[2016-09-28] MEDS ORDERED: METOPROLOL TARTRATE 25 MG TAB PO SCH (09:00)
[2016-09-28] MEDS: PANTOPRAZOLE 40 MG/10 ML VIAL IVP SCH (09:22)
[2016-09-28] MEDS: ASPIRIN 325 MG TAB PO SCH (09:23)
--- NOTE | 2016-09-28 09:41 | PN ---
DATE OF SERVICE: 09/27/2016 This 71-year-old gentleman who was admitted with severe mitral regurgitation as well as moderate aortic regurgitation is being closely monitored. The patient underwent aortic valve replacement as well as mitral valve repair. The patient is mechanically ventilated postoperatively. On exam, the pulse is 74, blood pressure 108/56, respirations 17, temperature 97.3, pulse ox 95% on 60% mechanical ventilation. HEENT: Conjunctivae normal. NECK: No jugular venous distention. CARDIOVASCULAR: S1 and S2, muffled. RESPIRATORY: No rhonchi, no crackles. ABDOMEN: Soft. NERVOUS SYSTEM: Patient is mechanical ventilated and sedated. LABS: Hemoglobin 9.6 Accu-Cheks noted. ASSESSMENT: 1. Severe mitral regurgitation as well as moderate aortic regurgitation, status post aortic valve replacement as well as mitral valve repair. 2. History of congestive heart failure. 3. History of atrial fibrillation, paroxysmal. 4. History of hyperlipidemia. 5. History of degenerative joint disease. 6. History of hypothyroidism. 7. History of thyroid cancer. 8. History of thyroidectomy. 9. History of nicotine dependence. 10. Obesity, body mass index of 34.8. 11. History of chronic obstructive pulmonary disease. 12. Pulmonary nodule 5.6 cm right middle lobe. 13. Increased random blood sugar. 14. FULL CODE. RECOMMENDATIONS AND DISCUSSION: Recommend to continue current medications. Continue symptomatic treatment. Closely follow with Dr. Albert and cardiothoracic surgery. Otherwise, I would also recommend continue with insulin drip at . Monitor closely. Further recommendations to follow. [facility]
--- NOTE | 2016-09-28 09:51 | P.PN ---
Subjective 71-year-old male patient underwent aortic valve replacement and mitral valve repair. Patient is postop day #0. I saw this patient immediately after he arrived to the intensive care unit. The patient was still quite sedated and he was intubated on a mechanical ventilator. I reviewed the initial postsurgical chest x-ray which showed some atelectatic changes within the right lower lobe. ET tube was in a good location. The patient's chest tube were all in good location. Initial blood gases showed a pH of 7.28 with a pCO2 of 56 and pO2 of 220 and based on that the patient was placed on a tidal volume of 700 with a rate of 12. Currently he is on IA PEEP of 10 and FiO2 of 60%. Subsequent blood gases showed a pH of 7.36 with a pCO2 of 44 and pO2 of 53. The patient has 2 mediastinal chest tubes, and right pleural and the left pleural chest tube. The cardiac output of this point is at 6.6 with an index of 2.24. The CVP is at 19. The mean pulmonary artery pressure is 19. The patient is currently on no pressors. most recent mean arterial pressure is at 18 the patient is producing adequate amount of urine output. The patient artery received a total of 5 doses of 12.5 g of albumin. The patient is seen again today 09/28/2016 in follow-up in the intensive care unit. This is postoperative day #1. He is seen sitting up in the chair at the bedside. He denies any worsening shortness of breath, cough or congestion. He is pulling approximate 750 MLS on the incentive spirometer. He is on 5 L/ m per nasal cannula to maintain O2 saturations in the 90s. His chest x-ray shows continued atelectatic changes in the lung bases. He is maintaining regular sinus rhythm. He is off his drips other than insulin. His mediastinal and pleural chest tubes remain in place. The [place] was removed today. He has remained hemodynamically stable. Objective - Vital Signs Vital signs: Vital Signs Temp 97.5 F L 09/27/16 16:43 Pulse 66 09/28/16 07:00 Resp 26 H 09/28/16 07:00 BP 112/64 09/27/16 16:43 Pulse Ox 94 L 09/28/16 07:00 Intake & Output 09/27/16 09/28/16 09/28/16 18:59 06:59 18:59 Intake Total 2012 3008.312 469.943 Output Total 6189 1023 84 Balance -4176 1985.312 385.943 Weight 118.7 kg Intake: IV 32 279 9 CO/CI 180 Pressure Bag 99 9 Intake, IV Titration 352 2729.312 60.943 Amount ACETAMINOPHEN IV (For NPO 800 ) 1,000 mg In Empty Bag 1 bag @ 400 mls/hr IVPB Q6HR [facility] Rx#:[id number] Albumin Human 5% 250 ml 250 750 As IVPB .STK-MED ONE Rx#: [id number] Albumin Human 5% 250 ml 250 In Empty Bag 1 bag @ 250 mls/hr IVPB Q1HR PRN Rx#: [id number] Albumin Human 5% 500 ml 250 In Empty Bag 1 bag @ 250 mls/hr IVPB ONCE ONE Rx#: [id number] Insulin Regular 100 unit 2 26.312 10.943 In Sodium Chloride 0.9% 100 ml @ Per Protocol IV .Q0M [facility] Rx#:[id number] Lactated Ringers 1,000 ml 100 553 50 @ 50 mls/hr IV .Q20H [facility] Rx#:[id number] ceFAZolin 2 gm In Sodium 100 Chloride 0.9% 100 ml @ 100 mls/hr IVPB Q8HR [facility] Rx#:[id number] Oral 400 Blood Product 1629 Ffp 24 Cpd Unit 316 [id number] Ffp 24 Cpd Unit 283 [id number] Ffp 24 Cpd Unit 295 [id number] Ffp 24 Cpd Unit 323 [id number] Platelet Irr Pheresis 2 203 Acda Unit [id number] Platelet Pheresis Acda3 209 Unit [id number] Output: Chest Tube Drainage 354 417 54 Chest Tube Left Anterior 228 69 6 Chest Chest Tube Mediastinal 126 230 40 Chest Tube Right Lateral 0 118 8 Chest Urine 835 606 30 Estimated Blood Loss 5000 Other: Voiding Method Indwelling Catheter Indwelling Catheter # Voids 60 ABP, PAP, CO, CI - Last Documented Arterial Blood Pressure 119/53 Pulmonary Artery Pressure 41/20 Cardiac Output 5.8 Cardiac Index 2.6 - Exam GENERAL EXAM: Alert, fairly comfortable in no apparent distress. HEAD: Normocephalic. EYES: Normal reaction of pupils, equal size. NOSE: Clear with pink turbinates. THROAT: No erythema or exudates. NECK: No masses, no JVD. CHEST: No chest wall deformity. Sternal dressing is dry and intact. LUNGS: Equal air entry with crackles in the posterior bases. Diminished. Chest tubes remain in place. CVS: S1 and S2 normal with no audible murmurs, regular rhythm. ABDOMEN: No hepatosplenomegaly, normal bowel sounds, no guarding or rigidity. SPINE: No scoliosis or deformity SKIN: No rashes CENTRAL NERVOUS SYSTEM: No focal deficits, tone is normal in all 4 extremities. Extremities: Bilateral Kieran wraps in place. Sequential compression devices in place. Peripheral pulses are intact. - Labs CBC & Chem 7: 09/28/16 04:05 09/28/16 04:05 Labs: Abnormal Lab Results - Last 24 Hours (Table) 09/26/16 09/27/16 09/27/16 Range/Units 05:56 10:10 10:53 RBC (4.30-5.90) m/uL Hgb (13.0-17.5) gm/dL Hct (39.0-53.0) % RDW (11.5-15.5) % Plt Count (150-450) k/uL Lymphocytes # (1.0-4.8) k/uL ABG pH (7.35-7.45) ABG pCO2 (35-45) mmHg ABG pO2 (83-108) mmHg ABG Total CO2 (19-24) mmol/L ABG O2 Saturation (94-97) % Chloride (98-107) mmol/L BUN (9-20) mg/dL Glucose (74-99) mg/dL POC Glucose (mg/dL) 127 H 145 H (75-99) mg/dL Calcium (8.4-10.2) mg/dL Magnesium (1.6-2.3) mg/dL Total Bilirubin (0.2-1.3) mg/dL AST (17-59) U/L Alkaline Phosphatase (38-126) U/L Total Protein (6.3-8.2) g/dL Albumin (3.5-5.0) g/dL Crossmatch See Detail 09/27/16 09/27/16 09/27/16 Range/Units 11:34 12:09 12:41 RBC (4.30-5.90) m/uL Hgb (13.0-17.5) gm/dL Hct (39.0-53.0) % RDW (11.5-15.5) % Plt Count (150-450) k/uL Lymphocytes # (1.0-4.8) k/uL ABG pH (7.35-7.45) ABG pCO2 (35-45) mmHg ABG pO2 (83-108) mmHg ABG Total CO2 (19-24) mmol/L ABG O2 Saturation (94-97) % Chloride (98-107) mmol/L BUN (9-20) mg/dL Glucose (74-99) mg/dL POC Glucose (mg/dL) 159 H 176 H 164 H (75-99) mg/dL Calcium (8.4-10.2) mg/dL Magnesium (1.6-2.3) mg/dL Total Bilirubin (0.2-1.3) mg/dL AST (17-59) U/L Alkaline Phosphatase (38-126) U/L Total Protein (6.3-8.2) g/dL Albumin (3.5-5.0) g/dL Crossmatch 09/27/16 09/27/16 09/27/16 Range/Units 13:17 13:38 15:23 RBC (4.30-5.90) m/uL Hgb (13.0-17.5) gm/dL Hct (39.0-53.0) % RDW (11.5-15.5) % Plt Count (150-450) k/uL Lymphocytes # (1.0-4.8) k/uL ABG pH (7.35-7.45) ABG pCO2 (35-45) mmHg ABG pO2 (83-108) mmHg ABG Total CO2 (19-24) mmol/L ABG O2 Saturation (94-97) % Chloride (98-107) mmol/L BUN (9-20) mg/dL Glucose (74-99) mg/dL POC Glucose (mg/dL) 174 H 178 H 132 H (75-99) mg/dL Calcium (8.4-10.2) mg/dL Magnesium (1.6-2.3) mg/dL Total Bilirubin (0.2-1.3) mg/dL AST (17-59) U/L Alkaline Phosphatase (38-126) U/L Total Protein (6.3-8.2) g/dL Albumin (3.5-5.0) g/dL Crossmatch 09/27/16 09/27/16 09/27/16 Range/Units 15:25 15:25 15:43 RBC 3.47 L (4.30-5.90) m/uL Hgb 10.6 L D (13.0-17.5) gm/dL Hct 31.9 L (39.0-53.0) % RDW 16.5 H (11.5-15.5) % Plt Count 123 L (150-450) k/uL Lymphocytes # 0.7 L (1.0-4.8) k/uL ABG pH (7.35-7.45) ABG pCO2 (35-45) mmHg ABG pO2 (83-108) mmHg ABG Total CO2 (19-24) mmol/L ABG O2 Saturation (94-97) % Chloride (98-107) mmol/L BUN 23 H (9-20) mg/dL Glucose 120 H (74-99) mg/dL POC Glucose (mg/dL) 120 H (75-99) mg/dL Calcium 7.8 L (8.4-10.2) mg/dL Magnesium 3.9 H (1.6-2.3) mg/dL Total Bilirubin 1.4 H (0.2-1.3) mg/dL AST 85 H (17-59) U/L Alkaline Phosphatase 37 L (38-126) U/L Total Protein 4.7 L (6.3-8.2) g/dL Albumin 2.5 L (3.5-5.0) g/dL Crossmatch 09/27/16 09/27/16 09/27/16 Range/Units 16:10 16:17 16:47 RBC (4.30-5.90) m/uL Hgb (13.0-17.5) gm/dL Hct (39.0-53.0) % RDW (11.5-15.5) % Plt Count (150-450) k/uL Lymphocytes # (1.0-4.8) k/uL ABG pH 7.28 L (7.35-7.45) ABG pCO2 56 H (35-45) mmHg ABG pO2 220 H 153 H (83-108) mmHg ABG Total CO2 27 H 26 H (19-24) mmol/L ABG O2 Saturation 100.0 H 99.0 H (94-97) % Chloride (98-107) mmol/L BUN (9-20) mg/dL Glucose (74-99) mg/dL POC Glucose (mg/dL) 125 H (75-99) mg/dL Calcium (8.4-10.2) mg/dL Magnesium (1.6-2.3) mg/dL Total Bilirubin (0.2-1.3) mg/dL AST (17-59) U/L Alkaline Phosphatase (38-126) U/L Total Protein (6.3-8.2) g/dL Albumin (3.5-5.0) g/dL Crossmatch 09/27/16 09/27/16 09/27/16 Range/Units 17:04 18:39 18:59 RBC 2.96 L (4.30-5.90) m/uL Hgb 9.5 L (13.0-17.5) gm/dL Hct 27.6 L (39.0-53.0) % RDW 16.7 H (11.5-15.5) % Plt Count 88 L (150-450) k/uL Lymphocytes # 0.4 L (1.0-4.8) k/uL ABG pH (7.35-7.45) ABG pCO2 (35-45) mmHg ABG pO2 (83-108) mmHg ABG Total CO2 (19-24) mmol/L ABG O2 Saturation (94-97) % Chloride (98-107) mmol/L BUN (9-20) mg/dL Glucose (74-99) mg/dL POC Glucose (mg/dL) 134 H 121 H (75-99) mg/dL Calcium (8.4-10.2) mg/dL Magnesium (1.6-2.3) mg/dL Total Bilirubin (0.2-1.3) mg/dL AST (17-59) U/L Alkaline Phosphatase (38-126) U/L Total Protein (6.3-8.2) g/dL Albumin (3.5-5.0) g/dL Crossmatch 09/27/16 09/27/16 09/27/16 Range/Units 19:29 20:25 20:25 RBC 3.12 L (4.30-5.90) m/uL Hgb 9.6 L (13.0-17.5) gm/dL Hct 28.5 L (39.0-53.0) % RDW 16.6 H (11.5-15.5) % Plt Count 92 L (150-450) k/uL Lymphocytes # (1.0-4.8) k/uL ABG pH (7.35-7.45) ABG pCO2 (35-45) mmHg ABG pO2 (83-108) mmHg ABG Total CO2 (19-24) mmol/L ABG O2 Saturation (94-97) % Chloride (98-107) mmol/L BUN 24 H (9-20) mg/dL Glucose 154 H (74-99) mg/dL POC Glucose (mg/dL) 169 H (75-99) mg/dL Calcium 7.6 L (8.4-10.2) mg/dL Magnesium 3.2 H (1.6-2.3) mg/dL Total Bilirubin (0.2-1.3) mg/dL AST (17-59) U/L Alkaline Phosphatase (38-126) U/L Total Protein (6.3-8.2) g/dL Albumin (3.5-5.0) g/dL Crossmatch 09/27/16 09/27/16 09/27/16 Range/Units 20:29 21:25 22:08 RBC (4.30-5.90) m/uL Hgb (13.0-17.5) gm/dL Hct (39.0-53.0) % RDW (11.5-15.5) % Plt Count (150-450) k/uL Lymphocytes # (1.0-4.8) k/uL ABG pH (7.35-7.45) ABG pCO2 (35-45) mmHg ABG pO2 (83-108) mmHg ABG Total CO2 (19-24) mmol/L ABG O2 Saturation (94-97) % Chloride (98-107) mmol/L BUN (9-20) mg/dL Glucose (74-99) mg/dL POC Glucose (mg/dL) 173 H 179 H 179 H (75-99) mg/dL Calcium (8.4-10.2) mg/dL Magnesium (1.6-2.3) mg/dL Total Bilirubin (0.2-1.3) mg/dL AST (17-59) U/L Alkaline Phosphatase (38-126) U/L Total Protein (6.3-8.2) g/dL Albumin (3.5-5.0) g/dL Crossmatch 09/27/16 09/28/16 09/28/16 Range/Units 23:03 00:09 01:14 RBC (4.30-5.90) m/uL Hgb (13.0-17.5) gm/dL Hct (39.0-53.0) % RDW (11.5-15.5) % Plt Count (150-450) k/uL Lymphocytes # (1.0-4.8) k/uL ABG pH (7.35-7.45) ABG pCO2 (35-45) mmHg ABG pO2 (83-108) mmHg ABG Total CO2 (19-24) mmol/L ABG O2 Saturation (94-97) % Chloride (98-107) mmol/L BUN (9-20) mg/dL Glucose (74-99) mg/dL POC Glucose (mg/dL) 170 H 158 H 159 H (75-99) mg/dL Calcium (8.4-10.2) mg/dL Magnesium (1.6-2.3) mg/dL Total Bilirubin (0.2-1.3) mg/dL AST (17-59) U/L Alkaline Phosphatase (38-126) U/L Total Protein (6.3-8.2) g/dL Albumin (3.5-5.0) g/dL Crossmatch 09/28/16 09/28/16 09/28/16 Range/Units 02:09 02:58 04:03 RBC (4.30-5.90) m/uL Hgb (13.0-17.5) gm/dL Hct (39.0-53.0) % RDW (11.5-15.5) % Plt Count (150-450) k/uL Lymphocytes # (1.0-4.8) k/uL ABG pH (7.35-7.45) ABG pCO2 (35-45) mmHg ABG pO2 (83-108) mmHg ABG Total CO2 (19-24) mmol/L ABG O2 Saturation (94-97) % Chloride (98-107) mmol/L BUN (9-20) mg/dL Glucose (74-99) mg/dL POC Glucose (mg/dL) 148 H 141 H 132 H (75-99) mg/dL Calcium (8.4-10.2) mg/dL Magnesium (1.6-2.3) mg/dL Total Bilirubin (0.2-1.3) mg/dL AST (17-59) U/L Alkaline Phosphatase (38-126) U/L Total Protein (6.3-8.2) g/dL Albumin (3.5-5.0) g/dL Crossmatch 09/28/16 09/28/16 09/28/16 Range/Units 04:05 04:05 05:08 RBC 2.86 L (4.30-5.90) m/uL Hgb 9.2 L (13.0-17.5) gm/dL Hct 25.9 L (39.0-53.0) % RDW 16.6 H (11.5-15.5) % Plt Count 84 L (150-450) k/uL Lymphocytes # 0.3 L (1.0-4.8) k/uL ABG pH (7.35-7.45) ABG pCO2 (35-45) mmHg ABG pO2 (83-108) mmHg ABG Total CO2 (19-24) mmol/L ABG O2 Saturation (94-97) % Chloride 108 H (98-107) mmol/L BUN 24 H (9-20) mg/dL Glucose 119 H (74-99) mg/dL POC Glucose (mg/dL) 138 H (75-99) mg/dL Calcium 7.6 L (8.4-10.2) mg/dL Magnesium 3.0 H (1.6-2.3) mg/dL Total Bilirubin (0.2-1.3) mg/dL AST 94 H (17-59) U/L Alkaline Phosphatase 37 L (38-126) U/L Total Protein 5.1 L (6.3-8.2) g/dL Albumin 3.2 L (3.5-5.0) g/dL Crossmatch 09/28/16 09/28/16 09/28/16 Range/Units 06:06 07:11 08:03 RBC (4.30-5.90) m/uL Hgb (13.0-17.5) gm/dL Hct (39.0-53.0) % RDW (11.5-15.5) % Plt Count (150-450) k/uL Lymphocytes # (1.0-4.8) k/uL ABG pH (7.35-7.45) ABG pCO2 (35-45) mmHg ABG pO2 (83-108) mmHg ABG Total CO2 (19-24) mmol/L ABG O2 Saturation (94-97) % Chloride (98-107) mmol/L BUN (9-20) mg/dL Glucose (74-99) mg/dL POC Glucose (mg/dL) 140 H 146 H 119 H (75-99) mg/dL Calcium (8.4-10.2) mg/dL Magnesium (1.6-2.3) mg/dL Total Bilirubin (0.2-1.3) mg/dL AST (17-59) U/L Alkaline Phosphatase (38-126) U/L Total Protein (6.3-8.2) g/dL Albumin (3.5-5.0) g/dL Crossmatch 09/28/16 09/28/16 Range/Units 08:50 23:44 RBC (4.30-5.90) m/uL Hgb (13.0-17.5) gm/dL Hct (39.0-53.0) % RDW (11.5-15.5) % Plt Count (150-450) k/uL Lymphocytes # (1.0-4.8) k/uL ABG pH (7.35-7.45) ABG pCO2 (35-45) mmHg ABG pO2 66 L (83-108) mmHg ABG Total CO2 (19-24) mmol/L ABG O2 Saturation 93.0 L (94-97) % Chloride (98-107) mmol/L BUN (9-20) mg/dL Glucose (74-99) mg/dL POC Glucose (mg/dL) 173 H (75-99) mg/dL Calcium (8.4-10.2) mg/dL Magnesium (1.6-2.3) mg/dL Total Bilirubin (0.2-1.3) mg/dL AST (17-59) U/L Alkaline Phosphatase (38-126) U/L Total Protein (6.3-8.2) g/dL Albumin (3.5-5.0) g/dL Crossmatch Microbiology - Last 24 Hours (Table) 09/27/16 09:33 Gram Stain - Preliminary Lymph Node Tissue Culture - Preliminary 09/27/16 09:33 Anaerobic Culture - Preliminary Lymph Node Assessment and Plan Plan: Impression: #1 Dyspnea secondary to moderate to severe mitral insufficiency as well as severe aortic stenosis. He is status post aortic valve replacement and mitral valve repair. This is postoperative day #1. #2 Postoperative right lower lobe atelectatic segmental changes. #3 Hypertension. #4 Hypothyroidism. #5 Hyperlipidemia. #6 History of thyroid cancer status post thyroidectomy. #7 History of smoking nearly 3 packs per day for 20 years but did quit back in 1979. He did smoke cigars on and off from [id number]. #8 Paroxysmal atrial fibrillation, currently in normal sinus rhythm. Plan: The patient was seen and evaluated by Dr. Albert. His chest x-ray and labs were reviewed. We have again encouraged the increased use of the incentive spirometer and cough and deep breathing exercises. He remains on heparin for DVT prophylaxis. Protonix for GI prophylaxis. We'll increase his activity as tolerated. We'll repeat his chest x-ray and labs in the a.m. We'll continue to follow.
[2016-09-28 09:55] LABS: Glucose,Whole Blood 156 mg/dL (75-99)
[2016-09-28 10:59] LABS: Glucose,Whole Blood 182 mg/dL (75-99)
[2016-09-28 12:00] LABS: Glucose,Whole Blood 172 mg/dL (75-99)
--- NOTE | 2016-09-28 12:22 | P.PN ---
Subjective Principal diagnosis: Severe mitral regurgitation, moderate aortic valvular insufficiency, congestive heart failure, history of paroxysmal atrial fibrillation, hypothyroidism, hypertension, and hyperlipidemia. POD #1 aortic valve replacement, mitral valve repair, Frederick maze procedure, intraoperative transesophageal echocardiogram, mediastinal lymph node biopsy Patient currently sitting up in bed in no apparent distress. States he had nausea overnight which is currently controlled. States pain is controlled on current medication regimen. No new complaints. Objective - Vital Signs Vital signs: Vital Signs Temp 97.5 F L 09/27/16 16:43 Pulse 66 09/28/16 07:00 Resp 26 H 09/28/16 07:00 BP 112/64 09/27/16 16:43 Pulse Ox 94 L 09/28/16 07:00 Intake & Output 09/27/16 09/28/16 09/28/16 18:59 06:59 18:59 Intake Total 2012 3008.312 469.943 Output Total 6189 1023 84 Balance -4176 1985.312 385.943 Weight 118.7 kg Intake: IV 32 279 9 CO/CI 180 Pressure Bag 99 9 Intake, IV Titration 352 2729.312 60.943 Amount ACETAMINOPHEN IV (For NPO 800 ) 1,000 mg In Empty Bag 1 bag @ 400 mls/hr IVPB Q6HR [facility] Rx#:[id number] Albumin Human 5% 250 ml 250 750 As IVPB .STK-MED ONE Rx#: [id number] Albumin Human 5% 250 ml 250 In Empty Bag 1 bag @ 250 mls/hr IVPB Q1HR PRN Rx#: [id number] Albumin Human 5% 500 ml 250 In Empty Bag 1 bag @ 250 mls/hr IVPB ONCE ONE Rx#: [id number] Insulin Regular 100 unit 2 26.312 10.943 In Sodium Chloride 0.9% 100 ml @ Per Protocol IV .Q0M [facility] Rx#:[id number] Lactated Ringers 1,000 ml 100 553 50 @ 50 mls/hr IV .Q20H [facility] Rx#:[id number] ceFAZolin 2 gm In Sodium 100 Chloride 0.9% 100 ml @ 100 mls/hr IVPB Q8HR [facility] Rx#:[id number] Oral 400 Blood Product 1629 Ffp 24 Cpd Unit 316 [id number] Ffp 24 Cpd Unit 283 [id number] Ffp 24 Cpd Unit 295 [id number] Ffp 24 Cpd Unit 323 [id number] Platelet Irr Pheresis 2 203 Acda Unit [id number] Platelet Pheresis Acda3 209 Unit [id number] Output: Chest Tube Drainage 354 417 54 Chest Tube Left Anterior 228 69 6 Chest Chest Tube Mediastinal 126 230 40 Chest Tube Right Lateral 0 118 8 Chest Urine 835 606 30 Estimated Blood Loss 5000 Other: Voiding Method Indwelling Catheter Indwelling Catheter # Voids 60 ABP, PAP, CO, CI - Last Documented Arterial Blood Pressure 119/53 Pulmonary Artery Pressure 41/20 Cardiac Output 5.8 Cardiac Index 2.6 - Constitutional General appearance: Present: cooperative, no acute distress, obese - Respiratory Details: Lungs sounds diminished bilaterally, respirations even, nonlabored. Currently on 5 L nasal cannula. Able to achieve 750 mL on his incentive spirometry. Weak cough. Left pleural chest tube to -20 cm wall suction, drained 22 mL serosanguineous fluid in the last 8 hours, 140 mL since surgery. Right pleural chest tube to -20 cm wall suction, drained 66 mL serosanguineous fluid in the last 8 hours, 190 mL since surgery. Mediastinal chest tube to -20 cm wall suction, drained 160 mL serosanguineous fluid in the last 8 hours, 470 mL since surgery, positive air leak. - Cardiovascular Details: S1, S2 present. Regular rate and rhythm, normal sinus rhythm on telemetry with occasional PVCs. Sternum stable. A/V epicardial pacemaker wires present, connected to generator, DDD with a backup rate of 60 bpm. [place] present. Teds, SCDs present. No lower extremity edema present. - Gastrointestinal Gastrointestinal Comment(s): Abdomen soft, nontender, nondistended, round. Hypoactive bowel sounds 4 quadrants. Patient admits to belching but no flatus yet. Tolerating liquids. - Genitourinary Genitourinary Comment(s): Duong present draining clear, yellow urine. Output 30-75 mL/h. - Integumentary Integumentary Comment(s): Anterior chest incision covered with dry intact Silverlon dressing. - Musculoskeletal Musculoskeletal: Present: strength equal bilaterally - Psychiatric Psychiatric: Present: A&O x's 3, appropriate affect, intact judgment & insight - Allied health notes Allied health notes reviewed: nursing - Labs CBC & Chem 7: 09/28/16 04:05 09/28/16 04:05 Labs: Abnormal Lab Results - Last 24 Hours (Table) 09/26/16 09/27/16 09/27/16 Range/Units 05:56 08:37 09:06 RBC (4.30-5.90) m/uL Hgb (13.0-17.5) gm/dL Hct (39.0-53.0) % RDW (11.5-15.5) % Plt Count (150-450) k/uL Lymphocytes # (1.0-4.8) k/uL ABG pH (7.35-7.45) ABG pCO2 (35-45) mmHg ABG pO2 (83-108) mmHg ABG Total CO2 (19-24) mmol/L ABG O2 Saturation (94-97) % Chloride (98-107) mmol/L BUN (9-20) mg/dL Glucose (74-99) mg/dL POC Glucose (mg/dL) 126 H 124 H (75-99) mg/dL Calcium (8.4-10.2) mg/dL Magnesium (1.6-2.3) mg/dL Total Bilirubin (0.2-1.3) mg/dL AST (17-59) U/L Alkaline Phosphatase (38-126) U/L Total Protein (6.3-8.2) g/dL Albumin (3.5-5.0) g/dL Crossmatch See Detail 09/27/16 09/27/16 09/27/16 Range/Units 10:10 10:53 11:34 RBC (4.30-5.90) m/uL Hgb (13.0-17.5) gm/dL Hct (39.0-53.0) % RDW (11.5-15.5) % Plt Count (150-450) k/uL Lymphocytes # (1.0-4.8) k/uL ABG pH (7.35-7.45) ABG pCO2 (35-45) mmHg ABG pO2 (83-108) mmHg ABG Total CO2 (19-24) mmol/L ABG O2 Saturation (94-97) % Chloride (98-107) mmol/L BUN (9-20) mg/dL Glucose (74-99) mg/dL POC Glucose (mg/dL) 127 H 145 H 159 H (75-99) mg/dL Calcium (8.4-10.2) mg/dL Magnesium (1.6-2.3) mg/dL Total Bilirubin (0.2-1.3) mg/dL AST (17-59) U/L Alkaline Phosphatase (38-126) U/L Total Protein (6.3-8.2) g/dL Albumin (3.5-5.0) g/dL Crossmatch 09/27/16 09/27/16 09/27/16 Range/Units 12:09 12:41 13:17 RBC (4.30-5.90) m/uL Hgb (13.0-17.5) gm/dL Hct (39.0-53.0) % RDW (11.5-15.5) % Plt Count (150-450) k/uL Lymphocytes # (1.0-4.8) k/uL ABG pH (7.35-7.45) ABG pCO2 (35-45) mmHg ABG pO2 (83-108) mmHg ABG Total CO2 (19-24) mmol/L ABG O2 Saturation (94-97) % Chloride (98-107) mmol/L BUN (9-20) mg/dL Glucose (74-99) mg/dL POC Glucose (mg/dL) 176 H 164 H 174 H (75-99) mg/dL Calcium (8.4-10.2) mg/dL Magnesium (1.6-2.3) mg/dL Total Bilirubin (0.2-1.3) mg/dL AST (17-59) U/L Alkaline Phosphatase (38-126) U/L Total Protein (6.3-8.2) g/dL Albumin (3.5-5.0) g/dL Crossmatch 09/27/16 09/27/16 09/27/16 Range/Units 13:38 15:23 15:25 RBC 3.47 L (4.30-5.90) m/uL Hgb 10.6 L D (13.0-17.5) gm/dL Hct 31.9 L (39.0-53.0) % RDW 16.5 H (11.5-15.5) % Plt Count 123 L (150-450) k/uL Lymphocytes # 0.7 L (1.0-4.8) k/uL ABG pH (7.35-7.45) ABG pCO2 (35-45) mmHg ABG pO2 (83-108) mmHg ABG Total CO2 (19-24) mmol/L ABG O2 Saturation (94-97) % Chloride (98-107) mmol/L BUN (9-20) mg/dL Glucose (74-99) mg/dL POC Glucose (mg/dL) 178 H 132 H (75-99) mg/dL Calcium (8.4-10.2) mg/dL Magnesium (1.6-2.3) mg/dL Total Bilirubin (0.2-1.3) mg/dL AST (17-59) U/L Alkaline Phosphatase (38-126) U/L Total Protein (6.3-8.2) g/dL Albumin (3.5-5.0) g/dL Crossmatch 09/27/16 09/27/16 09/27/16 Range/Units 15:25 15:43 16:10 RBC (4.30-5.90) m/uL Hgb (13.0-17.5) gm/dL Hct (39.0-53.0) % RDW (11.5-15.5) % Plt Count (150-450) k/uL Lymphocytes # (1.0-4.8) k/uL ABG pH (7.35-7.45) ABG pCO2 (35-45) mmHg ABG pO2 (83-108) mmHg ABG Total CO2 (19-24) mmol/L ABG O2 Saturation (94-97) % Chloride (98-107) mmol/L BUN 23 H (9-20) mg/dL Glucose 120 H (74-99) mg/dL POC Glucose (mg/dL) 120 H 125 H (75-99) mg/dL Calcium 7.8 L (8.4-10.2) mg/dL Magnesium 3.9 H (1.6-2.3) mg/dL Total Bilirubin 1.4 H (0.2-1.3) mg/dL AST 85 H (17-59) U/L Alkaline Phosphatase 37 L (38-126) U/L Total Protein 4.7 L (6.3-8.2) g/dL Albumin 2.5 L (3.5-5.0) g/dL Crossmatch 09/27/16 09/27/16 09/27/16 Range/Units 16:17 16:47 17:04 RBC (4.30-5.90) m/uL Hgb (13.0-17.5) gm/dL Hct (39.0-53.0) % RDW (11.5-15.5) % Plt Count (150-450) k/uL Lymphocytes # (1.0-4.8) k/uL ABG pH 7.28 L (7.35-7.45) ABG pCO2 56 H (35-45) mmHg ABG pO2 220 H 153 H (83-108) mmHg ABG Total CO2 27 H 26 H (19-24) mmol/L ABG O2 Saturation 100.0 H 99.0 H (94-97) % Chloride (98-107) mmol/L BUN (9-20) mg/dL Glucose (74-99) mg/dL POC Glucose (mg/dL) 134 H (75-99) mg/dL Calcium (8.4-10.2) mg/dL Magnesium (1.6-2.3) mg/dL Total Bilirubin (0.2-1.3) mg/dL AST (17-59) U/L Alkaline Phosphatase (38-126) U/L Total Protein (6.3-8.2) g/dL Albumin (3.5-5.0) g/dL Crossmatch 09/27/16 09/27/16 09/27/16 Range/Units 18:39 18:59 19:29 RBC 2.96 L (4.30-5.90) m/uL Hgb 9.5 L (13.0-17.5) gm/dL Hct 27.6 L (39.0-53.0) % RDW 16.7 H (11.5-15.5) % Plt Count 88 L (150-450) k/uL Lymphocytes # 0.4 L (1.0-4.8) k/uL ABG pH (7.35-7.45) ABG pCO2 (35-45) mmHg ABG pO2 (83-108) mmHg ABG Total CO2 (19-24) mmol/L ABG O2 Saturation (94-97) % Chloride (98-107) mmol/L BUN (9-20) mg/dL Glucose (74-99) mg/dL POC Glucose (mg/dL) 121 H 169 H (75-99) mg/dL Calcium (8.4-10.2) mg/dL Magnesium (1.6-2.3) mg/dL Total Bilirubin (0.2-1.3) mg/dL AST (17-59) U/L Alkaline Phosphatase (38-126) U/L Total Protein (6.3-8.2) g/dL Albumin (3.5-5.0) g/dL Crossmatch 09/27/16 09/27/16 09/27/16 Range/Units 20:25 20:25 20:29 RBC 3.12 L (4.30-5.90) m/uL Hgb 9.6 L (13.0-17.5) gm/dL Hct 28.5 L (39.0-53.0) % RDW 16.6 H (11.5-15.5) % Plt Count 92 L (150-450) k/uL Lymphocytes # (1.0-4.8) k/uL ABG pH (7.35-7.45) ABG pCO2 (35-45) mmHg ABG pO2 (83-108) mmHg ABG Total CO2 (19-24) mmol/L ABG O2 Saturation (94-97) % Chloride (98-107) mmol/L BUN 24 H (9-20) mg/dL Glucose 154 H (74-99) mg/dL POC Glucose (mg/dL) 173 H (75-99) mg/dL Calcium 7.6 L (8.4-10.2) mg/dL Magnesium 3.2 H (1.6-2.3) mg/dL Total Bilirubin (0.2-1.3) mg/dL AST (17-59) U/L Alkaline Phosphatase (38-126) U/L Total Protein (6.3-8.2) g/dL Albumin (3.5-5.0) g/dL Crossmatch 09/27/16 09/27/16 09/27/16 Range/Units 21:25 22:08 23:03 RBC (4.30-5.90) m/uL Hgb (13.0-17.5) gm/dL Hct (39.0-53.0) % RDW (11.5-15.5) % Plt Count (150-450) k/uL Lymphocytes # (1.0-4.8) k/uL ABG pH (7.35-7.45) ABG pCO2 (35-45) mmHg ABG pO2 (83-108) mmHg ABG Total CO2 (19-24) mmol/L ABG O2 Saturation (94-97) % Chloride (98-107) mmol/L BUN (9-20) mg/dL Glucose (74-99) mg/dL POC Glucose (mg/dL) 179 H 179 H 170 H (75-99) mg/dL Calcium (8.4-10.2) mg/dL Magnesium (1.6-2.3) mg/dL Total Bilirubin (0.2-1.3) mg/dL AST (17-59) U/L Alkaline Phosphatase (38-126) U/L Total Protein (6.3-8.2) g/dL Albumin (3.5-5.0) g/dL Crossmatch 09/28/16 09/28/16 09/28/16 Range/Units 00:09 01:14 02:09 RBC (4.30-5.90) m/uL Hgb (13.0-17.5) gm/dL Hct (39.0-53.0) % RDW (11.5-15.5) % Plt Count (150-450) k/uL Lymphocytes # (1.0-4.8) k/uL ABG pH (7.35-7.45) ABG pCO2 (35-45) mmHg ABG pO2 (83-108) mmHg ABG Total CO2 (19-24) mmol/L ABG O2 Saturation (94-97) % Chloride (98-107) mmol/L BUN (9-20) mg/dL Glucose (74-99) mg/dL POC Glucose (mg/dL) 158 H 159 H 148 H (75-99) mg/dL Calcium (8.4-10.2) mg/dL Magnesium (1.6-2.3) mg/dL Total Bilirubin (0.2-1.3) mg/dL AST (17-59) U/L Alkaline Phosphatase (38-126) U/L Total Protein (6.3-8.2) g/dL Albumin (3.5-5.0) g/dL Crossmatch 09/28/16 09/28/16 09/28/16 Range/Units 02:58 04:03 04:05 RBC 2.86 L (4.30-5.90) m/uL Hgb 9.2 L (13.0-17.5) gm/dL Hct 25.9 L (39.0-53.0) % RDW 16.6 H (11.5-15.5) % Plt Count 84 L (150-450) k/uL Lymphocytes # 0.3 L (1.0-4.8) k/uL ABG pH (7.35-7.45) ABG pCO2 (35-45) mmHg ABG pO2 (83-108) mmHg ABG Total CO2 (19-24) mmol/L ABG O2 Saturation (94-97) % Chloride (98-107) mmol/L BUN (9-20) mg/dL Glucose (74-99) mg/dL POC Glucose (mg/dL) 141 H 132 H (75-99) mg/dL Calcium (8.4-10.2) mg/dL Magnesium (1.6-2.3) mg/dL Total Bilirubin (0.2-1.3) mg/dL AST (17-59) U/L Alkaline Phosphatase (38-126) U/L Total Protein (6.3-8.2) g/dL Albumin (3.5-5.0) g/dL Crossmatch 09/28/16 09/28/16 09/28/16 Range/Units 04:05 05:08 06:06 RBC (4.30-5.90) m/uL Hgb (13.0-17.5) gm/dL Hct (39.0-53.0) % RDW (11.5-15.5) % Plt Count (150-450) k/uL Lymphocytes # (1.0-4.8) k/uL ABG pH (7.35-7.45) ABG pCO2 (35-45) mmHg ABG pO2 (83-108) mmHg ABG Total CO2 (19-24) mmol/L ABG O2 Saturation (94-97) % Chloride 108 H (98-107) mmol/L BUN 24 H (9-20) mg/dL Glucose 119 H (74-99) mg/dL POC Glucose (mg/dL) 138 H 140 H (75-99) mg/dL Calcium 7.6 L (8.4-10.2) mg/dL Magnesium 3.0 H (1.6-2.3) mg/dL Total Bilirubin (0.2-1.3) mg/dL AST 94 H (17-59) U/L Alkaline Phosphatase 37 L (38-126) U/L Total Protein 5.1 L (6.3-8.2) g/dL Albumin 3.2 L (3.5-5.0) g/dL Crossmatch 09/28/16 09/28/16 09/28/16 Range/Units 07:11 08:03 23:44 RBC (4.30-5.90) m/uL Hgb (13.0-17.5) gm/dL Hct (39.0-53.0) % RDW (11.5-15.5) % Plt Count (150-450) k/uL Lymphocytes # (1.0-4.8) k/uL ABG pH (7.35-7.45) ABG pCO2 (35-45) mmHg ABG pO2 66 L (83-108) mmHg ABG Total CO2 (19-24) mmol/L ABG O2 Saturation 93.0 L (94-97) % Chloride (98-107) mmol/L BUN (9-20) mg/dL Glucose (74-99) mg/dL POC Glucose (mg/dL) 146 H 119 H (75-99) mg/dL Calcium (8.4-10.2) mg/dL Magnesium (1.6-2.3) mg/dL Total Bilirubin (0.2-1.3) mg/dL AST (17-59) U/L Alkaline Phosphatase (38-126) U/L Total Protein (6.3-8.2) g/dL Albumin (3.5-5.0) g/dL Crossmatch Microbiology - Last 24 Hours (Table) 09/27/16 09:33 Gram Stain - Preliminary Lymph Node Tissue Culture - Preliminary 09/27/16 09:33 Anaerobic Culture - Preliminary Lymph Node - Imaging and Cardiology Chest x-ray: image reviewed Assessment and Plan (1) Mitral valvular regurgitation Status: Acute (2) Moderate aortic insufficiency Status: Acute (3) Congestive heart failure due to valvular disease Status: Acute (4) Paroxysmal atrial fibrillation Status: Acute (5) Hypothyroidism (acquired) Status: Acute (6) Obesity Status: Acute (7) Hypercholesterolemia Status: Acute (8) Hypertension Status: Acute Plan: 1. Continue aspirin, Lipitor, Lopressor. 2. Encourage incentive spirometry use. 3. DC [place]. 4. Encourage increased mobility. Out of bed to chair with ambulation in room today. Physical therapy to follow. 5. GI/DVT prophylaxis. 6. Diabetic management and insulin per primary service. 7. More recommendations as patient progresses. Time with Patient: Greater than 30
[2016-09-28 13:26] LABS: Glucose,Whole Blood 151 mg/dL (75-99)
[2016-09-28 14:19] LABS: Glucose,Whole Blood 162 mg/dL (75-99)
[2016-09-28] MEDS ORDERED: BISACODYL 10 MG SUPP RECTAL PRN (14:50)
[2016-09-28 15:06] LABS: Glucose,Whole Blood 150 mg/dL (75-99)
[2016-09-28 15:48] LABS: Glucose,Whole Blood 123 mg/dL (75-99)
--- NOTE | 2016-09-28 16:34 | PN ---
Mr. 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 He is doing well this morning. He is extubated, has some soreness in the chest, but otherwise denies any symptoms of dizziness or palpitation hemodynamically stable. He is on no pressors. He is in sinus mechanism with no evidence of tachy-or bradyarrhythmia. He continues to be on aspirin once a day, Lipitor 40 mg daily, metoprolol 12.5 mg twice a day. PHYSICAL EXAMINATION: Blood pressure running in the low 100s with a heart rate in the 60s. PA pressure is 40/20. LUNGS: No wheezes. HEART S1, S2. No rub. ABDOMEN: Soft, nontender. EXTREMITIES: No edema. Lab data revealed BUN 24 and creatinine 1.1. Hemoglobin of 9.2. IMPRESSION: 1. Status post mitral valve repair and aortic valve replacement. 2. 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 3. History of hyperlipidemia. 4. Hypertension. RECOMMENDATION: I will continue present medical regimen. I will continue treatment with the statin. Will follow his rhythm. He needs to be re-evaluated regarding anticoagulation in view of the prior history of atrial fibrillation once agreeable with the surgeon.
[2016-09-28 16:53] LABS: Glucose,Whole Blood 121 mg/dL (75-99)
--- NOTE | 2016-09-28 17:41 | PN ---
DATE OF SERVICE: 09/28/2016 This 71-year-old gentleman admitted with severe mitral regurgitation and aortic regurgitation underwent aortic valve replacement and mitral valve repair. The patient is being closely monitored. Patient is on insulin drip up to 6 units per hour. The blood sugars are mildly elevated occasionally according to the family prior to admission. The patient apparently was on a strict, low salt, low iodine diet for the follow-up of thyroid scan for thyroid cancer as well. Currently the patient has multiple chest tubes, sitting by the bedside and the patient is being closely monitored in the ICU. Past medical history reviewed. REVIEW OF SYSTEMS: CARDIOVASCULAR: as mentioned earlier. RESPIRATORY: As mentioned earlier. GI: No nausea or vomiting. : No dysuria. CENTRAL NERVOUS SYSTEM: No focal deficits. Current medications are: 1. Tylenol 1000 mg p.o. q6h p.r.n. 2. [place] 5 mg. 3. Albuterol. 4. Aspirin. 5. Lipitor. 6. Dulcolax. 7. Calcium gluconate. 8. Lactated Ringer. 9. Reglan. 10. Lopressor. 11. Replacement protocols. PHYSICAL EXAMINATION: Patient is alert and oriented times three. Pulse is 69, blood pressure 97/40, respiratory rate 13, temperature 98 degrees, pulse ox 92% on 5 L. HEENT: Conjunctivae normal. NECK: No jugular venous distention. CARDIOVASCULAR: S1, S2 muffled. RESPIRATORY: Breath sounds diminished at the bases. A few scattered rhonchi and crackles. ABDOMEN: Soft, nontender. Legs: No edema, no swelling. CENTRAL NERVOUS SYSTEM: No focal deficits. LABS: Hemoglobin 9.2 and albumin 3.0. ASSESSMENT: 1. Severe mitral regurgitation as well as moderate aortic regurgitation status post aortic valve replacement and mitral valve repair. 2. History of congestive heart failure. 3. History of atrial fibrillation, paroxysmal. 4. Hyperlipidemia. 5. Increased random blood sugar, on insulin drip. 6. History of degenerative joint disease. 7. History of hypothyroidism. 8. History of thyroid cancer. 9. History of thyroidectomy. 10. History of nicotine dependence. 11. History of body mass index 34.8. 12. History of chronic obstructive pulmonary disease. 13. Pulmonary nodule 5.7 cm on the right middle lobe. 14. FULL CODE. RECOMMENDATIONS AND DISCUSSION: Recommend to continue the current medications. Continue symptomatic treatment. Otherwise, at this time, the hemoglobin A1c is only 6.1. I recommend to continue monitor blood sugars and continue monitoring in the outpatient setting as well. Accu-Cheks a.c. and at bedtime. Recommend a glucometer at home. Otherwise incentive spirometry. Rest of the recommendations per cardiovascular surgery. Further recommendations to follow.
[2016-09-28] MEDS: HYDROcodone/APAP 5-325MG 1 EACH TAB PO PRN (17:46)
[2016-09-28] MEDS: BENZOCAINE/MENTHOL LOZENG 1 EACH LOZENGE MUCOUS MEM PRN (17:47)
[2016-09-28] MEDS: LACTATED RINGERS 1,000 ML IV SCH (17:49)
[2016-09-28 17:54] LABS: Glucose,Whole Blood 106 mg/dL (75-99)
[2016-09-28 18:49] LABS: Glucose,Whole Blood 127 mg/dL (75-99)
[2016-09-28 19:55] LABS: Glucose,Whole Blood 103 mg/dL (75-99)
[2016-09-28 21:10] LABS: Glucose,Whole Blood 106 mg/dL (75-99)
[2016-09-28] MEDS: ATORVASTATIN 40 MG TAB PO SCH (21:11)
[2016-09-28] MEDS: METOPROLOL TARTRATE 12.5 MG TAB PO SCH (21:11)
[2016-09-28] MEDS: SENNOSIDES-DOCUSATE SODIUM 1 EACH TAB PO SCH (21:11)
[2016-09-28 22:27] LABS: Glucose,Whole Blood 128 mg/dL (75-99)
--- NOTE | 2016-09-28 22:58 | OP ---
DATE OF SERVICE: 09/27/2016 SURGEON: SHIMA PERALTA MD [facility] COACH: Abdon FLORES. PREOPERATIVE DIAGNOSES: 1. Mitral valve regurgitation. 2. Aortic valve insufficiency. 3. Paroxysmal atrial fibrillation. 4. Mediastinal lymphadenopathy. POSTOPERATIVE DIAGNOSES: 1. Mitral valve regurgitation. 2. Aortic valve insufficiency. 3. Paroxysmal atrial fibrillation. 4. Mediastinal lymphadenopathy. OPERATION: 1. Complex Mitral valve repair, Aortic valve replacement. 2. Modified Frederick Maze, epiaortic ultrasonography 3. Mediastinal lymph node biopsy ANESTHESIA: General endotracheal by Dr. Dumont. ESTIMATED BLOOD LOSS: 200cc SPECIMENS REMOVED: portion posterior leaflet mitral valve, thymus, Rt paratracheal lymph nodes COMPLICATIONS: none OPERATIVE FINDINGS: see below INDICATIONS: The patient is a 71-year-old male who has a distant history of thyroid cancer that had been treated with iodine 125. He has been followed at [facility] and has recently discovered mediastinal adenopathy. He also has new shortness of breath and was worked up by cardiology and found to have severe mitral regurgitation and moderate aortic valvular regurgitation, ventricular function was well preserved. Patient had undergone JAYDE end of July, which demonstrated severe MR with anteriorly directed jet and flail portion of the P2 leaflet with a ruptured chord. There was moderate aortic valvular insufficiency and the AI jet was directed onto the anterior leaflet of the mitral valve. The left ventricle was moderately hypertrophic and dilated with normal systolic ventricular function. The patient had h/o paroxysmal atrial fibrillation and was maintained on Coumadin. Elective cardiac catheterization was performed on September 23 and this demonstrated normal coronary arteries. Cardiac surgical consultation was obtained and met with the patient and spoke with him. He required mitral valve repair and it was felt that it would be most appropriate to also replace the aortic valve in view of the moderate aortic valvular insufficiency. The fact that the jet was directed onto the anterior leaflet of the mitral valve led to concern as to what the long-term effects this would be on the mitral valve repair. In addition, we planned Frederick Maze procedure for his paroxysmal atrial fibrillation. The patient was willing to proceed, and given that he was now off Coumadin, would like the procedure done this hospitalization. It was scheduled for Tuesday. Patient expressed concern about mediastinal adenopathy and said that his oncologist at [facility] requested if possible to biopsy the mediastinal lymph nodes at the time of the heart surgery, which was known to be needed. We obtained a CT scan of the chest and this did demonstrate right paratracheal lymphadenopathy and it also demonstrated some small dense masses within the thymic fat pad. It was agreed that at the time of the heart surgery, we would try to biopsy the lymph nodes. Patient was scheduled for the next available open time. OPERATIVE PROCEDURE: Patient was brought to the operating room, placed supine on the operating table, anesthetized and intubated. [place] catheter had been placed via the right internal jugular approach. Radial arterial line had been placed. The anterior torso and lower extremities were sterilely prepped and draped after induction of general anesthesia. JAYDE probe was placed and a Duong catheter had been placed. After appropriate time out a midline sternotomy was performed. Standard sternal retractor was placed and bilateral pleural spaces were opened. No masses could be palpated in the lung. Pericardium was opened in the midline. The heart was exposed with pericardial sutures. The heart was markedly enlarged and rotated somewhat into the left chest. Dissection was begun along the thymus and the majority of the thymic fat pad was excised and sent fresh to pathology. Pathology's review of this tissue did not demonstrate any masses. Dissection was carried between the aorta and the superior vena cava to the right paratracheal region and some large lymph nodes were identified. These were anthracotic and soft and did not appeared to be malignant. They were resected and sent fresh to the pathology and reported as granulomatous disease. Patient was systemically heparinized and Epiaortic ultrasonography was performed and no significant disease was noted in the ascending aorta. Patient was cannulated for cardiopulmonary bypass in standard fashion with an 8 mm soft flow cannula in the distal ascending aorta, a 36 straight venous cannula through the right atrium into the inferior vena cava and a 30 right angle cannula in the superior vena cava . Antegrade and retrograde cardioplegia lines were placed in standard fashion. Patient was placed on cardiopulmonary bypass and stabilized. Blunt dissection was carried out around in superior vena cava and inferior vena cava and cable tapes were passed. Blunt dissection was continued and we encircled the right-sided pulmonary veins. AtriCure clamp was used ablate the left atrium at the insertion of the right pulmonary veins. Two parallel lines were performed here. Patient was now placed on cardiopulmonary bypass and the heart was lifted, dissection was carried out around the left-sided pulmonary vein and ablation of the left atrium at the insertion of the left pulmonary vein was performed in a similar fashion again with parallel lines being performed. On removing the clamp, there was evidence of a tear where then clamped had been applied. This was repaired with pledgeted Prolene sutures after arresting the heart. The heart was crossclamped and arrested with cold crystalloid cardioplegia followed by retrograde cardioplegia. After controlling the bleeding with several pledgeted sutures in the left atrium near the insertion of the left superior pulmonary vein, we had a brief incident where the aortic cannulation cannula was accidentally pulled from the ascending aorta and replaced. Patient was off pump for less than 60 seconds. We now dissected out the interatrial groove and opened the left atrium. Ananda retractor was used for exposure. On examining the repair of the left atrium near the insertion of the left superior pulmonary vein, it was felt that further repair from the inside, would be ideal and a running suture of 3-0 Prolene was placed here. We did not want to risk any further tears in the left atrium as the tissue was very friable. We did not do any ablation of the left atrium at this point, instead we went straight to the mitral valve. Mitral valve was tested with saline and the area of posterior flail was identified. Triangular resection of this area was performed. The posterior leaflet was then repaired with a 2 layer running closure of 5-0 Prolene. On completion of this, we placed annuloplasty sutures circumferentially around the annulus of the mitral valve sized the anterior leaflet, I chose 30 mm Mihai 3D ring. The annuloplasty sutures were placed through the ring and the ring was seated and the sutures were secured with Cor knots. The valve was now tested and noted to be competent. The left atrium was closed with a running 3-0 Prolene suture but this was not tied and a vent was left in the left atrium. The left atrial appendage was sized and a 35 mm AtriClip was applied to the left atrial appendage. We now opened transversely above the sinotubular junction and exposed the aortic valve. The aortic valve was tricuspid and thin and did not have any immediately evident pathology. The aortic valve was excised and circumferential valve sutures were placed, pledgeted 2-0 Tycron sutures with pledgets on the ventricular side to allow for annular valve implantation. The annulus was sized and a 27 mm Espinal Bovie pericardial valve was chosen, appropriately washed and brought up onto the field. Valve sutures were placed through the sewing ring of the valve and it was seated without difficulty. Initial sutures were tied first and then we used Cor knots to secure sutures between the three commissures. The valve was well seated and was tested and noted to be competent. We irrigated copiously and proceeded with aortic closure. Aorta was quit thin and 2 layer running closure of 4-0 Prolene was performed. On completion of the closure of the aortotomy it was reinforced with a small amount of CoSeal so CoSeal was also supported in the region of the left atrial tear. We now tied the left atrial closure and placed the patient in Trendelenburg. Crossclamp was removed, the patient returned to a slow rhythm spontaneously. Atrial and ventricular pacing wires were placed and the retrograde cardioplegia line was removed. The heart was de-aired under JAYDE guidance using a 16 gauge angiocath at the apex of the left ventricle. Then the catheter was removed and the site was oversewn with 6-0 Prolene suture. The inferior vena cava cannula was pulled back into right atrium and the superior cava cannula was removed. After again ensuring good deairing, the aortic vent line was removed and the site reinforced with 4-0 pledgeted Prolene suture. The patient had been rewarmed to systemic temperatures and we now weaned the patient from cardiopulmonary bypass without the use of inotropic support. from bypass easily and was hemodynamically stable. It was quite oozy and fresh frozen and platelets were given and we were able to obtained excellent hemostasis. Bilateral pleural spaces were drained with 32 Gren[place] chest tubes and mediastinum with 2x36 [place] tubes. After assuring good hemostasis and good hemodynamic stability, sternum was closed with separate sternal wires. Three double wires were used in the upper sternal body. Fascia was closed with 0-Ethibond, subcutaneous and subcuticular layers with layers of Vicryl suture. Dry sterile dressings were applied. Patient was transferred to the ICU in stable hemodynamic condition. Did not reveal any packed red blood cells during the operation. JAYDE on completion of the procedure demonstrated no MR and no AI. MTDD
[2016-09-28 23:23] LABS: Glucose,Whole Blood 133 mg/dL (75-99)
[2016-09-29] MEDS: BENZOCAINE/MENTHOL LOZENG 1 EACH LOZENGE MUCOUS MEM PRN (00:09)
[2016-09-29 00:21] LABS: Glucose,Whole Blood 133 mg/dL (75-99)
[2016-09-29] MEDS: HEPARIN SODIUM,PORCINE 5,000 UNIT/ML 1 ML VIAL SQ SCH ×4 (00:56→23:33)
--- NOTE | 2016-09-29 01:00 | XR ---
EXAM: XR Chest, 1 View. CLINICAL HISTORY: Reason: Difficulty breathing TECHNIQUE: Frontal view of the chest at 0038 hours. COMPARISON: Portable chest of 09/28/16 at 0557 hrs. FINDINGS: Lungs: In general the pulmonary vascular markings are again prominent throughout suggesting a component of pulmonary vascular congestion, stable or minimally increased. No new or enlarging infiltrate is seen. Bandlike opacity at the right base is unchanged and is located alongside a right basilar chest tube tract. Minimal left base atelectasis is stable. Pleural space: Stable, without evidence of pneumothorax. Heart: Mild enlargement of the cardiomediastinal silhouette, postop median sternotomy, is stable. Mediastinum: See above. Bones/joints: The bones are stable in appearance. Tubes, lines and devices: There are again bilateral chest tubes present. Right IJ PA catheter has been removed with right IJ cordis present. IMPRESSION: 1. Findings suggesting the presence of pulmonary vascular congestion, stable or perhaps minimally increased. 2. Removal of right IJ PA catheter.
[2016-09-29 01:08] LABS: Glucose,Whole Blood 129 mg/dL (75-99)
[2016-09-29] MEDS: HYDROcodone/APAP 5-325MG 1 EACH TAB PO PRN ×5 (02:20→23:33)
[2016-09-29 02:23] LABS: Glucose,Whole Blood 113 mg/dL (75-99)
[2016-09-29 03:37] LABS: Glucose,Whole Blood 120 mg/dL (75-99)
[2016-09-29 04:00] LABS: Anisocytosis Slight; Basophils % (A) 0 %; CH 30.3; CHCM 33.5; Eosinophils # (A) 0.2 k/uL (0-0.7); Eosinophils % (A) 3 %; HCT 23.5 % (39.0-53.0); HDW 2.92; HGB 7.9 gm/dL (13.0-17.5); Luc # (Auto) 0.13; Luc % (Auto) 2; Lymphocytes # (A) 0.7 k/uL (1.0-4.8); Lymphocytes % (A) 8 %; MCH 30.5 pg (25.0-35.0); MCHC 33.5 g/dL (31.0-37.0); MCV 90.9 fL (80.0-100.0); Monocytes # (A) 0.4 k/uL (0-1.0); Monocytes % (A) 5 %; Neutrophils # (A) 6.4 k/uL (1.3-7.7); Neutrophils % (A) 82 %; RBC 2.59 m/uL (4.30-5.90); RDW 16.9 % (11.5-15.5); WBC 7.8 k/uL (3.8-10.6); WBC (Perox) 7.68
[2016-09-29 04:06] LABS: Ionized Calcium 4.6 mg/dL (4.5-5.3)
[2016-09-29 04:09] LABS: Glucose,Whole Blood 120 mg/dL (75-99)
[2016-09-29 04:18] LABS: ALT 37 U/L (21-72); AST 75 U/L (17-59); Alkaline Phosphatase 41 U/L (38-126); Anion Gap 6 mmol/L; Blood Urea Nitrogen 32 mg/dL (9-20); Calcium 7.7 mg/dL (8.4-10.2); Carbon Dioxide 24 mmol/L (22-30); Chloride 105 mmol/L (98-107); Glucose 105 mg/dL (74-99); Magnesium 2.8 mg/dL (1.6-2.3); Non-African American GFR(MDRD) 59 (>60 ml/min/1.73 sqM); Potassium 4.2 mmol/L (3.5-5.1); Sodium 135 mmol/L (137-145); Total Protein 5.1 g/dL (6.3-8.2)
[2016-09-29 04:21] LABS: INR 1.2 (<1.1); Prothrombin Time 12.3 sec (9.0-12.0)
[2016-09-29 05:13] LABS: Glucose,Whole Blood 113 mg/dL (75-99)
[2016-09-29] MEDS ORDERED: FUROSEMIDE 10 MG/ML 4 ML VIAL IV STA (05:58)
[2016-09-29 07:02] LABS: Glucose,Whole Blood 125 mg/dL (75-99)
[2016-09-29] MEDS: PANTOPRAZOLE 40 MG/10 ML VIAL IVP SCH (07:45)
[2016-09-29] MEDS: ASPIRIN 325 MG TAB PO SCH (07:46)
[2016-09-29 08:12] LABS: Glucose,Whole Blood 142 mg/dL (75-99)
[2016-09-29] MEDS: IPRATROPIUM-ALBUTEROL 3 ML NEB INHALATION PRN (08:14)
[2016-09-29] MEDS: METOPROLOL TARTRATE 12.5 MG TAB PO SCH ×2 (08:15→21:54)
[2016-09-29 09:07] LABS: Glucose,Whole Blood 150 mg/dL (75-99)
--- NOTE | 2016-09-29 09:19 | P.PN ---
Subjective 71-year-old male patient underwent aortic valve replacement and mitral valve repair. Patient is postop day #0. I saw this patient immediately after he arrived to the intensive care unit. The patient was still quite sedated and he was intubated on a mechanical ventilator. I reviewed the initial postsurgical chest x-ray which showed some atelectatic changes within the right lower lobe. ET tube was in a good location. The patient's chest tube were all in good location. Initial blood gases showed a pH of 7.28 with a pCO2 of 56 and pO2 of 220 and based on that the patient was placed on a tidal volume of 700 with a rate of 12. Currently he is on IA PEEP of 10 and FiO2 of 60%. Subsequent blood gases showed a pH of 7.36 with a pCO2 of 44 and pO2 of 53. The patient has 2 mediastinal chest tubes, and right pleural and the left pleural chest tube. The cardiac output of this point is at 6.6 with an index of 2.24. The CVP is at 19. The mean pulmonary artery pressure is 19. The patient is currently on no pressors. Most recent mean arterial pressure is at 18 the patient is producing adequate amount of urine output. The patient already received a total of 5 is of 12.5 g of albumin. On 09/29/2016 the patient is postop day #2. The patient is having some increased rhonchi and rest or secretions which she is unable to cough out. Today's chest x-ray shows atelectatic changes in the right lower lungs appear segment and some small bilateral pleural effusions. The patient was already given a dose of Lasix and he diuresed significantly in order of 1 L overall diuresis since he was given Lasix. His still has all of these chest tubes in place. The mediastinal chest tubes are been already removed. The patient's left pleural chest tube will be also pulled out today. He is hemodynamically stable. He is still on 4.5 units of insulin drip for blood sugar control and this will be switched with a 3. insulin scale utilizing NPH and ascites scale coverage. The patient has adequate pain control. Adequate urine output. Adequate mentation. Pulling up somewhat between 500-750 on his incentive spirometer. Hemoglobin was stable at 7.9. The cardiac rhythm is remains sinus and there may be some plans to put him on anticoagulation at a later stage. Cardiology is also on the case. Objective - Vital Signs Vital signs: Vital Signs Temp 96.8 F L 09/29/16 08:00 Pulse 72 09/29/16 08:23 Resp 22 09/29/16 08:00 BP 82/53 09/28/16 13:00 Pulse Ox 92 L 09/29/16 08:15 Intake & Output 09/28/16 09/29/16 09/29/16 18:59 06:59 18:59 Intake Total 1168.943 468.163 29 Output Total 891 976 120 Balance 277.943 -507.837 -91 Weight 120 kg Intake: IV 78 84 9 Pressure Bag 78 84 9 Intake, IV Titration 690.943 384.163 20 Amount Insulin Regular 100 unit 10.943 64.163 In Sodium Chloride 0.9% 100 ml @ Per Protocol IV .Q0M STEVAN Rx#:[id number] Lactated Ringers 1,000 ml 580 320 20 @ 20 mls/hr IV .Q24H STEVAN Rx#:[id number] ceFAZolin 2 gm In Sodium 100 Chloride 0.9% 100 ml @ 100 mls/hr IVPB Q8HR STEVAN Rx#:[id number] Oral 400 Output: Chest Tube Drainage 423 480 100 Chest Tube Left Anterior 75 130 40 Chest Chest Tube Mediastinal 125 Chest Tube Right Lateral 223 350 60 Chest Urine 468 496 20 Other: Voiding Method Indwelling Catheter Indwelling Catheter Indwelling Catheter ABP, PAP, CO, CI - Last Documented Arterial Blood Pressure 117/54 Pulmonary Artery Pressure 40/20 Cardiac Output 4.2 Cardiac Index 1.9 - Exam Head exam was generally normal. There was no scleral icterus or corneal arcus. Mucous membranes were moist.Neck was supple and without jugular venous distension, thyromegaly, or carotid bruits. Carotids were easily palpable bilaterally. There was no adenopathy. Patient has orogastric and orotracheal tube are both in place. The patient has a right IJ Cordis in place. Lung sounds are equal and symmetrical bilaterally. No wheezes or rhonchi.Cardiac exam revealed the PMI to be normally situated and sized. The rhythm was regular and no extrasystoles were noted during several minutes of auscultation. The first and second heart sounds were normal and physiologic splitting of the second heart sound was noted. There were no murmurs, rubs, clicks, or gallops. Sternum is stable clean and intact. The chest tubes are all in place. The patient has right pleural and left pleural chest tube. Abdominal exam revealed normal bowel sounds. The abdomen was soft, non-tender, and without masses, organomegaly, or appreciable enlargement of the abdominal aorta.Examination of the extremities revealed easily palpable radial, femoral and pedal pulses. There was no cyanosis, clubbing or edema. - Labs CBC & Chem 7: 09/29/16 03:40 09/29/16 03:40 Labs: Abnormal Lab Results - Last 24 Hours (Table) 09/26/16 09/28/16 09/28/16 Range/Units 05:56 09:54 10:58 RBC (4.30-5.90) m/uL Hgb (13.0-17.5) gm/dL Hct (39.0-53.0) % RDW (11.5-15.5) % Plt Count (150-450) k/uL Lymphocytes # (1.0-4.8) k/uL PT (9.0-12.0) sec Sodium (137-145) mmol/L BUN (9-20) mg/dL Glucose (74-99) mg/dL POC Glucose (mg/dL) 156 H 182 H (75-99) mg/dL Calcium (8.4-10.2) mg/dL Magnesium (1.6-2.3) mg/dL AST (17-59) U/L Total Protein (6.3-8.2) g/dL Albumin (3.5-5.0) g/dL Crossmatch See Detail 09/28/16 09/28/16 09/28/16 Range/Units 11:58 13:24 14:18 RBC (4.30-5.90) m/uL Hgb (13.0-17.5) gm/dL Hct (39.0-53.0) % RDW (11.5-15.5) % Plt Count (150-450) k/uL Lymphocytes # (1.0-4.8) k/uL PT (9.0-12.0) sec Sodium (137-145) mmol/L BUN (9-20) mg/dL Glucose (74-99) mg/dL POC Glucose (mg/dL) 172 H 151 H 162 H (75-99) mg/dL Calcium (8.4-10.2) mg/dL Magnesium (1.6-2.3) mg/dL AST (17-59) U/L Total Protein (6.3-8.2) g/dL Albumin (3.5-5.0) g/dL Crossmatch 09/28/16 09/28/16 09/28/16 Range/Units 15:05 15:46 16:52 RBC (4.30-5.90) m/uL Hgb (13.0-17.5) gm/dL Hct (39.0-53.0) % RDW (11.5-15.5) % Plt Count (150-450) k/uL Lymphocytes # (1.0-4.8) k/uL PT (9.0-12.0) sec Sodium (137-145) mmol/L BUN (9-20) mg/dL Glucose (74-99) mg/dL POC Glucose (mg/dL) 150 H 123 H 121 H (75-99) mg/dL Calcium (8.4-10.2) mg/dL Magnesium (1.6-2.3) mg/dL AST (17-59) U/L Total Protein (6.3-8.2) g/dL Albumin (3.5-5.0) g/dL Crossmatch 09/28/16 09/28/16 09/28/16 Range/Units 17:53 18:48 19:54 RBC (4.30-5.90) m/uL Hgb (13.0-17.5) gm/dL Hct (39.0-53.0) % RDW (11.5-15.5) % Plt Count (150-450) k/uL Lymphocytes # (1.0-4.8) k/uL PT (9.0-12.0) sec Sodium (137-145) mmol/L BUN (9-20) mg/dL Glucose (74-99) mg/dL POC Glucose (mg/dL) 106 H 127 H 103 H (75-99) mg/dL Calcium (8.4-10.2) mg/dL Magnesium (1.6-2.3) mg/dL AST (17-59) U/L Total Protein (6.3-8.2) g/dL Albumin (3.5-5.0) g/dL Crossmatch 09/28/16 09/28/16 09/28/16 Range/Units 21:09 22:25 23:21 RBC (4.30-5.90) m/uL Hgb (13.0-17.5) gm/dL Hct (39.0-53.0) % RDW (11.5-15.5) % Plt Count (150-450) k/uL Lymphocytes # (1.0-4.8) k/uL PT (9.0-12.0) sec Sodium (137-145) mmol/L BUN (9-20) mg/dL Glucose (74-99) mg/dL POC Glucose (mg/dL) 106 H 128 H 133 H (75-99) mg/dL Calcium (8.4-10.2) mg/dL Magnesium (1.6-2.3) mg/dL AST (17-59) U/L Total Protein (6.3-8.2) g/dL Albumin (3.5-5.0) g/dL Crossmatch 09/29/16 09/29/16 09/29/16 Range/Units 00:08 01:05 02:09 RBC (4.30-5.90) m/uL Hgb (13.0-17.5) gm/dL Hct (39.0-53.0) % RDW (11.5-15.5) % Plt Count (150-450) k/uL Lymphocytes # (1.0-4.8) k/uL PT (9.0-12.0) sec Sodium (137-145) mmol/L BUN (9-20) mg/dL Glucose (74-99) mg/dL POC Glucose (mg/dL) 133 H 129 H 113 H (75-99) mg/dL Calcium (8.4-10.2) mg/dL Magnesium (1.6-2.3) mg/dL AST (17-59) U/L Total Protein (6.3-8.2) g/dL Albumin (3.5-5.0) g/dL Crossmatch 09/29/16 09/29/16 09/29/16 Range/Units 03:35 03:40 03:40 RBC 2.59 L (4.30-5.90) m/uL Hgb 7.9 L (13.0-17.5) gm/dL Hct 23.5 L (39.0-53.0) % RDW 16.9 H (11.5-15.5) % Plt Count 85 L (150-450) k/uL Lymphocytes # 0.7 L (1.0-4.8) k/uL PT (9.0-12.0) sec Sodium 135 L (137-145) mmol/L BUN 32 H (9-20) mg/dL Glucose 105 H (74-99) mg/dL POC Glucose (mg/dL) 120 H (75-99) mg/dL Calcium 7.7 L (8.4-10.2) mg/dL Magnesium 2.8 H (1.6-2.3) mg/dL AST 75 H (17-59) U/L Total Protein 5.1 L (6.3-8.2) g/dL Albumin 3.0 L (3.5-5.0) g/dL Crossmatch 09/29/16 09/29/16 09/29/16 Range/Units 03:40 04:06 05:10 RBC (4.30-5.90) m/uL Hgb (13.0-17.5) gm/dL Hct (39.0-53.0) % RDW (11.5-15.5) % Plt Count (150-450) k/uL Lymphocytes # (1.0-4.8) k/uL PT 12.3 H (9.0-12.0) sec Sodium (137-145) mmol/L BUN (9-20) mg/dL Glucose (74-99) mg/dL POC Glucose (mg/dL) 120 H 113 H (75-99) mg/dL Calcium (8.4-10.2) mg/dL Magnesium (1.6-2.3) mg/dL AST (17-59) U/L Total Protein (6.3-8.2) g/dL Albumin (3.5-5.0) g/dL Crossmatch 09/29/16 09/29/16 09/29/16 Range/Units 06:48 08:10 09:04 RBC (4.30-5.90) m/uL Hgb (13.0-17.5) gm/dL Hct (39.0-53.0) % RDW (11.5-15.5) % Plt Count (150-450) k/uL Lymphocytes # (1.0-4.8) k/uL PT (9.0-12.0) sec Sodium (137-145) mmol/L BUN (9-20) mg/dL Glucose (74-99) mg/dL POC Glucose (mg/dL) 125 H 142 H 150 H (75-99) mg/dL Calcium (8.4-10.2) mg/dL Magnesium (1.6-2.3) mg/dL AST (17-59) U/L Total Protein (6.3-8.2) g/dL Albumin (3.5-5.0) g/dL Crossmatch Microbiology - Last 24 Hours (Table) 09/27/16 09:33 Gram Stain - Preliminary Lymph Node Tissue Culture - Preliminary Assessment and Plan Plan: Assessment 1 status post aortic valve replacement and mitral valve repair, patient is postop day #2. Preoperative disease included severe mitral regurgitation and moderate degree of aortic valve insufficiency. Postop day 2 2 post thoracotomy, extubated without any major difficulties. He has some small bilateral pleural effusion currently on 5 L of oxygen by nasal cannula saturation above 92% and the patient using incentive spirometer. 3 postoperative right lower lobe atelectatic segmental changes, most likely due to excessive rest or secretions/mucous plugs. 4 severe mitral regurgitation and aortic valve insufficiency, preoperatively 5 paroxysmal atrial fibrillation, current rhythm is sinus 6 postoperative anemia with a hemoglobin of 7.9 7 hypothyroidism, post thyroidectomy for thyroid cancer 8 hyperlipidemia 9 hypertension 10 insulin drip for blood sugar control Plan Noted for bronchoscopy at. Aggressive pulmonary toileting. The patient should be able to clear up is a secretions. Continue using incentive spirometer. Agree on Lasix. Hold off on anticoagulation for now. Switch this patient to the 3. insulin scale and stop the insulin drip for now. We'll continue to follow. Remove the left-sided chest tube. Keep the patient ICU for another 24 hours.
--- NOTE | 2016-09-29 09:36 | P.PN ---
Subjective Principal diagnosis: Severe mitral regurgitation, moderate aortic valvular insufficiency, congestive heart failure, history of paroxysmal atrial fibrillation, hypothyroidism, hypertension, and hyperlipidemia. POD #2 aortic valve replacement, mitral valve repair, Frederick maze procedure, intraoperative transesophageal echocardiogram, mediastinal lymph node biopsy Patient currently sitting up in a recliner in no apparent distress. States he feels better than yesterday. Objective - Vital Signs Vital signs: Vital Signs Temp 96.8 F L 09/29/16 08:00 Pulse 73 09/29/16 09:00 Resp 19 09/29/16 09:00 BP 82/53 09/28/16 13:00 Pulse Ox 95 09/29/16 09:00 Intake & Output 09/28/16 09/29/16 09/29/16 18:59 06:59 18:59 Intake Total 1168.943 468.163 29 Output Total 891 976 120 Balance 277.943 -507.837 -91 Weight 120 kg Intake: IV 78 84 9 Pressure Bag 78 84 9 Intake, IV Titration 690.943 384.163 20 Amount Insulin Regular 100 unit 10.943 64.163 In Sodium Chloride 0.9% 100 ml @ Per Protocol IV .Q0M STEVAN Rx#:[id number] Lactated Ringers 1,000 ml 580 320 20 @ 20 mls/hr IV .Q24H [facility]EVAN Rx#:[id number] ceFAZolin 2 gm In Sodium 100 Chloride 0.9% 100 ml @ 100 mls/hr IVPB Q8HR [facility]EVAN Rx#:[id number] Oral 400 Output: Chest Tube Drainage 423 480 100 Chest Tube Left Anterior 75 130 40 Chest Chest Tube Mediastinal 125 Chest Tube Right Lateral 223 350 60 Chest Urine 468 496 20 Other: Voiding Method Indwelling Catheter Indwelling Catheter Indwelling Catheter ABP, PAP, CO, CI - Last Documented Arterial Blood Pressure 110/53 Pulmonary Artery Pressure 40/20 Cardiac Output 4.2 Cardiac Index 1.9 - Constitutional General appearance: Present: cooperative, no acute distress, obese - Respiratory Details: Coarse breath sounds throughout. Respirations even, nonlabored. Currently on 5 L nasal cannula. Only able to achieve 500 mL on his incentive spirometry. Weak cough. Left pleural chest tube to -20 cm wall suction, drained 90 mL serosanguineous fluid in the last 8 hours, 270 mL in the last 24 hours. Right pleural chest tube to -20 cm wall suction, drained 260 mL serous and was fluid in the last 8 hours, 660 mL in the last 24 hours. No air leak present. - Cardiovascular Details: S1, S2 present. Regular rate and rhythm, normal sinus rhythm on telemetry. Sternum stable. Heart hugger in place with patient demonstrating appropriate use. Teds, SCDs present. No edema present. - Gastrointestinal Gastrointestinal Comment(s): Abdomen soft, nontender, nondistended, round. Active bowel sounds 4 quadrants. Patient tolerating diet. - Genitourinary Genitourinary Comment(s): Duong present draining clear, yellow urine. Was approximately 30-60 mL an hour overnight, after Lasix given the patient put out 350 mL of urine. - Integumentary Integumentary Comment(s): Anterior chest incision covered with dry intact Silverlon dressing. - Musculoskeletal Musculoskeletal: Present: strength equal bilaterally - Psychiatric Psychiatric: Present: A&O x's 3, appropriate affect, intact judgment & insight - Allied health notes Allied health notes reviewed: nursing - Labs CBC & Chem 7: 09/29/16 03:40 09/29/16 03:40 Labs: Abnormal Lab Results - Last 24 Hours (Table) 09/26/16 09/28/16 09/28/16 Range/Units 05:56 09:54 10:58 RBC (4.30-5.90) m/uL Hgb (13.0-17.5) gm/dL Hct (39.0-53.0) % RDW (11.5-15.5) % Plt Count (150-450) k/uL Lymphocytes # (1.0-4.8) k/uL PT (9.0-12.0) sec Sodium (137-145) mmol/L BUN (9-20) mg/dL Glucose (74-99) mg/dL POC Glucose (mg/dL) 156 H 182 H (75-99) mg/dL Calcium (8.4-10.2) mg/dL Magnesium (1.6-2.3) mg/dL AST (17-59) U/L Total Protein (6.3-8.2) g/dL Albumin (3.5-5.0) g/dL Crossmatch See Detail 09/28/16 09/28/16 09/28/16 Range/Units 11:58 13:24 14:18 RBC (4.30-5.90) m/uL Hgb (13.0-17.5) gm/dL Hct (39.0-53.0) % RDW (11.5-15.5) % Plt Count (150-450) k/uL Lymphocytes # (1.0-4.8) k/uL PT (9.0-12.0) sec Sodium (137-145) mmol/L BUN (9-20) mg/dL Glucose (74-99) mg/dL POC Glucose (mg/dL) 172 H 151 H 162 H (75-99) mg/dL Calcium (8.4-10.2) mg/dL Magnesium (1.6-2.3) mg/dL AST (17-59) U/L Total Protein (6.3-8.2) g/dL Albumin (3.5-5.0) g/dL Crossmatch 09/28/16 09/28/16 09/28/16 Range/Units 15:05 15:46 16:52 RBC (4.30-5.90) m/uL Hgb (13.0-17.5) gm/dL Hct (39.0-53.0) % RDW (11.5-15.5) % Plt Count (150-450) k/uL Lymphocytes # (1.0-4.8) k/uL PT (9.0-12.0) sec Sodium (137-145) mmol/L BUN (9-20) mg/dL Glucose (74-99) mg/dL POC Glucose (mg/dL) 150 H 123 H 121 H (75-99) mg/dL Calcium (8.4-10.2) mg/dL Magnesium (1.6-2.3) mg/dL AST (17-59) U/L Total Protein (6.3-8.2) g/dL Albumin (3.5-5.0) g/dL Crossmatch 09/28/16 09/28/16 09/28/16 Range/Units 17:53 18:48 19:54 RBC (4.30-5.90) m/uL Hgb (13.0-17.5) gm/dL Hct (39.0-53.0) % RDW (11.5-15.5) % Plt Count (150-450) k/uL Lymphocytes # (1.0-4.8) k/uL PT (9.0-12.0) sec Sodium (137-145) mmol/L BUN (9-20) mg/dL Glucose (74-99) mg/dL POC Glucose (mg/dL) 106 H 127 H 103 H (75-99) mg/dL Calcium (8.4-10.2) mg/dL Magnesium (1.6-2.3) mg/dL AST (17-59) U/L Total Protein (6.3-8.2) g/dL Albumin (3.5-5.0) g/dL Crossmatch 09/28/16 09/28/16 09/28/16 Range/Units 21:09 22:25 23:21 RBC (4.30-5.90) m/uL Hgb (13.0-17.5) gm/dL Hct (39.0-53.0) % RDW (11.5-15.5) % Plt Count (150-450) k/uL Lymphocytes # (1.0-4.8) k/uL PT (9.0-12.0) sec Sodium (137-145) mmol/L BUN (9-20) mg/dL Glucose (74-99) mg/dL POC Glucose (mg/dL) 106 H 128 H 133 H (75-99) mg/dL Calcium (8.4-10.2) mg/dL Magnesium (1.6-2.3) mg/dL AST (17-59) U/L Total Protein (6.3-8.2) g/dL Albumin (3.5-5.0) g/dL Crossmatch 09/29/16 09/29/16 09/29/16 Range/Units 00:08 01:05 02:09 RBC (4.30-5.90) m/uL Hgb (13.0-17.5) gm/dL Hct (39.0-53.0) % RDW (11.5-15.5) % Plt Count (150-450) k/uL Lymphocytes # (1.0-4.8) k/uL PT (9.0-12.0) sec Sodium (137-145) mmol/L BUN (9-20) mg/dL Glucose (74-99) mg/dL POC Glucose (mg/dL) 133 H 129 H 113 H (75-99) mg/dL Calcium (8.4-10.2) mg/dL Magnesium (1.6-2.3) mg/dL AST (17-59) U/L Total Protein (6.3-8.2) g/dL Albumin (3.5-5.0) g/dL Crossmatch 09/29/16 09/29/16 09/29/16 Range/Units 03:35 03:40 03:40 RBC 2.59 L (4.30-5.90) m/uL Hgb 7.9 L (13.0-17.5) gm/dL Hct 23.5 L (39.0-53.0) % RDW 16.9 H (11.5-15.5) % Plt Count 85 L (150-450) k/uL Lymphocytes # 0.7 L (1.0-4.8) k/uL PT (9.0-12.0) sec Sodium 135 L (137-145) mmol/L BUN 32 H (9-20) mg/dL Glucose 105 H (74-99) mg/dL POC Glucose (mg/dL) 120 H (75-99) mg/dL Calcium 7.7 L (8.4-10.2) mg/dL Magnesium 2.8 H (1.6-2.3) mg/dL AST 75 H (17-59) U/L Total Protein 5.1 L (6.3-8.2) g/dL Albumin 3.0 L (3.5-5.0) g/dL Crossmatch 09/29/16 09/29/16 09/29/16 Range/Units 03:40 04:06 05:10 RBC (4.30-5.90) m/uL Hgb (13.0-17.5) gm/dL Hct (39.0-53.0) % RDW (11.5-15.5) % Plt Count (150-450) k/uL Lymphocytes # (1.0-4.8) k/uL PT 12.3 H (9.0-12.0) sec Sodium (137-145) mmol/L BUN (9-20) mg/dL Glucose (74-99) mg/dL POC Glucose (mg/dL) 120 H 113 H (75-99) mg/dL Calcium (8.4-10.2) mg/dL Magnesium (1.6-2.3) mg/dL AST (17-59) U/L Total Protein (6.3-8.2) g/dL Albumin (3.5-5.0) g/dL Crossmatch 09/29/16 09/29/16 09/29/16 Range/Units 06:48 08:10 09:04 RBC (4.30-5.90) m/uL Hgb (13.0-17.5) gm/dL Hct (39.0-53.0) % RDW (11.5-15.5) % Plt Count (150-450) k/uL Lymphocytes # (1.0-4.8) k/uL PT (9.0-12.0) sec Sodium (137-145) mmol/L BUN (9-20) mg/dL Glucose (74-99) mg/dL POC Glucose (mg/dL) 125 H 142 H 150 H (75-99) mg/dL Calcium (8.4-10.2) mg/dL Magnesium (1.6-2.3) mg/dL AST (17-59) U/L Total Protein (6.3-8.2) g/dL Albumin (3.5-5.0) g/dL Crossmatch Microbiology - Last 24 Hours (Table) 09/27/16 09:33 Gram Stain - Preliminary Lymph Node Tissue Culture - Preliminary - Imaging and Cardiology Chest x-ray: report reviewed, image reviewed Assessment and Plan (1) Mitral valvular regurgitation Status: Acute (2) Moderate aortic insufficiency Status: Acute (3) Congestive heart failure due to valvular disease Status: Acute (4) Paroxysmal atrial fibrillation Status: Acute (5) Hypothyroidism (acquired) Status: Acute (6) Obesity Status: Acute (7) Hypercholesterolemia Status: Acute (8) Hypertension Status: Acute Plan: 1. Continue aspirin, Lipitor, Lopressor. 2. Encourage incentive spirometry use. 3. At Lasix 40 mg IV twice a day. 4. Will discontinue left pleural chest tube. 5. Encourage increased mobility. Out of bed to chair with ambulation in room today. Physical therapy to follow. 6. GI/DVT prophylaxis. 7. Diabetic management and insulin per primary service. Chains to 3 shot insulin protocol. 8. Will DC arterial line, Cordis once insulin is changed over. 9. Will keep in ICU for another 24 hours. 10. More recommendations as patient progresses. Time with Patient: Greater than 30
[2016-09-29] MEDS: INSULN ASP PRT/INSULIN ASPART 100 UNIT/ML 10 ML VIAL SQ SCH (10:10)
--- NOTE | 2016-09-29 10:20 | P.ARTDOP ---
Arterial Doppler LOWER EXTREMITY ARTERIAL DOPPLER: DATE OF SERVICE: 09/24/2016 Reason for study: Suspected PVD. Doppler waveforms: Multiphasic bilaterally throughout. Pulse volume recording: Normal configuration. Pressure gradients: None significant. Ankle-brachial indices: Greater than 1 bilaterally. Toe pressures: 86 on the right, 66 on the left Impression: Probably normal study. Decreased toe pressures probably some vasoconstriction..
[2016-09-29 12:14] LABS: Glucose,Whole Blood 134 mg/dL (75-99)
--- NOTE | 2016-09-29 13:10 | CDI ---
In responding to this query, please exercise your independent professional judgment. The [facility] Coding Staff and Clinical Documentation Specialists appreciate your assistance in clarifying documentation, maintaining compliance with coding guidelines, accurately documenting patients condition and capturing severity of illness. The fact that a question is asked does not imply that any particular answer is desired or expected. Communication forms are a method of clarifying documentation and are not made part of the Legal Health Record. Thank you in advance for your clarification. Last Revision, April 2015 Jnaeth Perez [address] [place] [address] Documentation Clarification Form Date: 09/29/2016 12:55:00 PM From: Paige Lui RN, CCDS Admit Date: 09/25/2016 11:40:00 AM Patient Name: Jn Stevenson Visit Number: [id number] Dr. Jae Riggs/ Charisse Croft CNP Patient history/risk factors: s/p aortic valve replacement and mitral valve repair, with modified maze procedure Clinical Indicators: Hemoglobin: 14.6/14.8/9.6/9.2/7.9 Hematocrit: 43.7/45.4/28.5/25.9/23.5 Treatment: 2 Units platelets and 4 units FFP in OR 5 albumin CBC AM Daily In order to capture the severity of condition, please clarify the type of anemia and etiology if known: Acute blood loss anemia Acute on chronic blood loss anemia Chronic blood loss anemia Iron deficiency anemia Hemolytic anemia Drug induced anemia Anemia due to malignancy Nutritional anemia Anemia of chronic kidney disease Unable to determine Other, please specify Please document in your progress notes and discharge summary in order to capture severity of illness and risk of mortality. Include clinical findings that support your diagnosis. FYI: Press F11 to launch patient chart. Place X here if this finding has no clinical significance, is not applicable or if you are not able to provide any additional documentation. Acute blood loss anemia, expected outcome MTDD
[2016-09-29 13:20] LABS: ABG PCO2 37 mmHg (35-45); ABG PH 7.44 (7.35-7.45); ABG PO2 143 mmHg (83-108)
[2016-09-29 13:21] LABS: ABG Base Excess 1.6 mmol/L; ABG HCO3 25 mmol/L (21-25); ABG Oxygen Saturation 99.3 % (94-97); ABG TCO2 26 mmol/L (19-24)
[2016-09-29 13:22] LABS: ABG Base Excess 0.6 mmol/L; ABG HCO3 24 mmol/L (21-25); ABG Oxygen Saturation 99.7 % (94-97); ABG PCO2 38 mmHg (35-45); ABG PH 7.43 (7.35-7.45); ABG PO2 186 mmHg (83-108); ABG TCO2 25 mmol/L (19-24)
[2016-09-29 13:23] LABS: ABG Base Excess 2.5 mmol/L; ABG HCO3 27 mmol/L (21-25); ABG Oxygen Saturation 99.9 % (94-97); ABG PCO2 41 mmHg (35-45); ABG PH 7.43 (7.35-7.45); ABG PO2 307 mmHg (83-108); ABG TCO2 28 mmol/L (19-24)
[2016-09-29 13:24] LABS: ABG HCO3 25 mmol/L (21-25); ABG Oxygen Saturation 99.9 % (94-97); ABG PCO2 42 mmHg (35-45); ABG PH 7.39 (7.35-7.45); ABG PO2 288 mmHg (83-108); ABG TCO2 26 mmol/L (19-24)
[2016-09-29 13:25] LABS: ABG Base Excess -1.3 mmol/L; ABG HCO3 25 mmol/L (21-25); ABG Oxygen Saturation 99.7 % (94-97); ABG PCO2 56 mmHg (35-45); ABG PH 7.28 (7.35-7.45); ABG PO2 233 mmHg (83-108); ABG TCO2 27 mmol/L (19-24)
[2016-09-29 13:26] LABS: ABG Base Excess -1.2 mmol/L; ABG HCO3 24 mmol/L (21-25); ABG Oxygen Saturation 99.6 % (94-97); ABG PCO2 44 mmHg (35-45); ABG PH 7.36 (7.35-7.45); ABG PO2 189 mmHg (83-108); ABG TCO2 25 mmol/L (19-24)
[2016-09-29 13:27] LABS: ABG Base Excess -1.7 mmol/L; ABG HCO3 23 mmol/L (21-25); ABG Oxygen Saturation 99.9 % (94-97); ABG PCO2 44 mmHg (35-45); ABG PH 7.35 (7.35-7.45); ABG PO2 347 mmHg (83-108); ABG TCO2 25 mmol/L (19-24)
[2016-09-29 13:28] LABS: ABG Base Excess -4.3 mmol/L; ABG HCO3 20 mmol/L (21-25); ABG Oxygen Saturation 99.9 % (94-97); ABG PCO2 38 mmHg (35-45); ABG PH 7.35 (7.35-7.45); ABG PO2 338 mmHg (83-108); ABG TCO2 22 mmol/L (19-24)
[2016-09-29 13:29] LABS: ABG HCO3 22 mmol/L (21-25); ABG PCO2 47 mmHg (35-45); ABG PO2 68 mmHg (83-108)
[2016-09-29 13:30] LABS: ABG Base Excess -3.6 mmol/L; ABG Oxygen Saturation 91.2 % (94-97); ABG TCO2 24 mmol/L (19-24)
[2016-09-29 13:31] LABS: ABG Base Excess -0.5 mmol/L; ABG HCO3 25 mmol/L (21-25); ABG PCO2 45 mmHg (35-45); ABG PH 7.35 (7.35-7.45); ABG PO2 67 mmHg (83-108); ABG TCO2 26 mmol/L (19-24)
[2016-09-29] MEDS: INSULIN LISPRO (humaLOG) 300 UNIT/3 ML VIAL SQ SCH ×4 (14:00→21:58)
--- NOTE | 2016-09-29 14:54 | PN ---
Mr. Stevenson underwent aortic valve replacement, mitral valve repair and a MAZE procedure. Remains in sinus, hemodynamically stable, doing well. Vital signs are stable. S1, S2 heard normally. A short systolic murmur is audible at the base. Lungs reveal fair air entry. Abdomen and lower extremity exam unchanged. Plan is to continue incentive spirometry, pulmonary toilet and current medical regimen.
[2016-09-29 18:00] LABS: Glucose,Whole Blood 135 mg/dL (75-99)
[2016-09-29] MEDS: FUROSEMIDE 10 MG/ML 4 ML VIAL IV SCH (20:05)
[2016-09-29] MEDS: LACTATED RINGERS 1,000 ML IV SCH (20:06)
[2016-09-29] MEDS: INSULIN NPH 300 UNIT/3 ML VIAL SQ SCH (20:10)
[2016-09-29] MEDS: ATORVASTATIN 40 MG TAB PO SCH (20:11)
--- NOTE | 2016-09-29 20:19 | PN ---
This 71-year-old gentleman who was admitted after valvular surgery is being closely monitored at this time. The patient is on three shot insulin regimen. No chest pain or palpitation. No fever. Occasional cough is reported. On exam, alert and oriented x3. Pulse 74. Blood pressure 84/50, respirations 16, temperature 98.0. Pulse ox 97% on 4 liters. HEENT: Conjunctivae normal. NECK: No jugular venous distention. CARDIOVASCULAR: S1, S2 muffled. RESPIRATORY: Breath sounds diminished at the bases. A few scattered rhonchi and crackles. ABDOMEN: Soft, nontender. LEGS: No edema. No swelling. CENTRAL NERVOUS SYSTEM: No focal deficits. LABS: Hemoglobin 7.9. Other labs are noted. ASSESSMENT: 1. Severe mitral regurgitation as well as moderate aortic regurgitation status post aortic valve replacement and as well as mitral valve repair. 2. History of congestive heart failure. 3. History of atrial fibrillation, paroxysmal. 4. Hyperlipidemia. 5. Increased random blood sugar on insulin drip. 6. Anemia, possibly dilutional. 7. History of degenerative joint disease. 8. History of hypothyroidism. 9. History of thyroid cancer. 10. History of thyroidectomy. 11. History nicotine dependence. 12. History of BMI 34.8. 13. History of chronic obstructive pulmonary disease. 14. Pulmonary nodule 5.7 cm right middle lobe. RECOMMENDATIONS AND DISCUSSION: I recommend to continue current medications. Continue with monitoring. Symptomatic treatment. Otherwise, at this time, I would recommend continue the incentive spirometry. Continue bronchodilators. Otherwise, closely follow with cardiothoracic surgery. Monitor blood sugars closely. Further recommendations to follow.
[2016-09-29] MEDS: SENNOSIDES-DOCUSATE SODIUM 1 EACH TAB PO SCH (21:55)
[2016-09-29 22:00] LABS: Glucose,Whole Blood 95 mg/dL (75-99)
[2016-09-29] MEDS ORDERED: Potassium Replacement Protocol 1 EACH MISC MISCELLANE PRN (23:08)
[2016-09-30] MEDS ORDERED: POTASSIUM CHLORIDE ER 20 MEQ TAB.ER PO SCH
[2016-09-30] MEDS: HYDROcodone/APAP 5-325MG 1 EACH TAB PO PRN ×3 (02:53→16:12)
[2016-09-30] MEDS: BENZOCAINE/MENTHOL LOZENG 1 EACH LOZENGE MUCOUS MEM PRN (04:55)
[2016-09-30] MEDS: IPRATROPIUM-ALBUTEROL 3 ML NEB INHALATION PRN ×4 (04:57→19:38)
[2016-09-30 05:10] LABS: Anisocytosis Slight; Basophils % (A) 0 %; CHCM 32.1; Eosinophils # (A) 0.5 k/uL (0-0.7); Eosinophils % (A) 7 %; HCT 23.4 % (39.0-53.0); HDW 2.81; HGB 8.1 gm/dL (13.0-17.5); Luc # (Auto) 0.15; Luc % (Auto) 2; Lymphocytes # (A) 0.8 k/uL (1.0-4.8); Lymphocytes % (A) 11 %; MCH 32.4 pg (25.0-35.0); MCHC 34.6 g/dL (31.0-37.0); MCV 93.8 fL (80.0-100.0); Mean Platelet Volume 8.1; Monocytes # (A) 0.4 k/uL (0-1.0); Monocytes % (A) 5 %; Neutrophils # (A) 5.7 k/uL (1.3-7.7); Neutrophils % (A) 76 %; RDW 16.6 % (11.5-15.5); WBC 7.6 k/uL (3.8-10.6); WBC (Perox) 7.88
[2016-09-30 05:20] LABS: Ionized Calcium 4.4 mg/dL (4.5-5.3)
[2016-09-30 05:24] LABS: INR 1.2 (<1.1); Prothrombin Time 12.3 sec (9.0-12.0)
[2016-09-30 05:36] LABS: ALT 30 U/L (21-72); AST 47 U/L (17-59); Alkaline Phosphatase 43 U/L (38-126); Anion Gap 6 mmol/L; Blood Urea Nitrogen 38 mg/dL (9-20); Calcium 7.8 mg/dL (8.4-10.2); Carbon Dioxide 30 mmol/L (22-30); Chloride 103 mmol/L (98-107); Glucose 64 mg/dL (74-99); Magnesium 2.4 mg/dL (1.6-2.3); Non-African American GFR(MDRD) >60 (>60 ml/min/1.73 sqM); Potassium 4.1 mmol/L (3.5-5.1); Sodium 139 mmol/L (137-145); Total Protein 5.1 g/dL (6.3-8.2)
[2016-09-30] MEDS: FUROSEMIDE 10 MG/ML 4 ML VIAL IV SCH ×2 (06:37→18:53)
--- NOTE | 2016-09-30 07:23 | XR ---
EXAMINATION TYPE: XR chest 1V portable DATE OF EXAM: 09/30/2016 6:47 AM HISTORY: Post Operative Cardiac Surgery. REFERENCE: Previous study dated 09/29/2016. FINDINGS: There has been a midline sternotomy. There is a right pleural drain in place. The heart is enlarged. There is vascular congestion. There is right basilar airspace disease. There i s mild interstitial change. IMPRESSION: 1. CARDIOMEGALY. 2. CHANGES CONSISTENT WITH CONGESTIVE HEART FAILURE. 3. CONFLUENT OPACITY AT THE RIGHT LUNG BASE MAY REPRESENT CONFLUENT EDEMA, ATELECTASIS OR PNEUMONIA.
[2016-09-30 07:57] LABS: Glucose,Whole Blood 152 mg/dL (75-99)
--- NOTE | 2016-09-30 08:20 | P.PN ---
Progress Note - Text CV Surgery Nursing Principal diagnosis: Severe mitral regurgitation, moderate aortic valve insufficiency, congestive heart failure, history of paroxysmal atrial fibrillation, hypothyroidism, post thyroidectomy for thyroid cancer, hypertension, and hyperlipidemia. POD #3 aortic valve replacement using a #27 mm Espinal bovine pericardial valve , mitral valve repair using a 30 mm minimal 3-D ring, left atrial appendage exclusion using a 35 mm Atriclip, Frederick maze procedure, intraoperative transesophageal echocardiogram, mediastinal lymph node biopsy. Objective Patient awake and alert, no distress noted, no specific complaints, Rates his pain on the pain scale at 3 out of 10. Patient currently sitting up in a recliner in no apparent distress. Vital Signs: Afebrile Vital Signs - 24 hr 09/29/16 09/29/16 09/29/16 08:00 08:15 08:23 Temperature 96.8 F L Pulse Rate 72 72 72 Respiratory 22 Rate Blood Pressure O2 Sat by Pulse 90 L 92 L Oximetry 09/29/16 09/29/16 09/29/16 09:00 11:00 12:00 Temperature 98.1 F Pulse Rate 73 68 68 Respiratory 19 15 14 Rate Blood Pressure 104/58 96/62 O2 Sat by Pulse 95 92 L 94 L Oximetry 09/29/16 09/29/16 09/29/16 13:00 14:00 15:00 Temperature Pulse Rate 68 71 74 Respiratory 24 22 16 Rate Blood Pressure 97/56 94/53 84/59 O2 Sat by Pulse 94 L 92 L 86 L Oximetry 09/29/16 09/29/16 09/29/16 16:00 17:00 18:00 Temperature 98.1 F Pulse Rate 70 73 75 Respiratory 16 39 H 20 Rate Blood Pressure 96/48 100/67 116/46 O2 Sat by Pulse 92 L 95 92 L Oximetry 09/29/16 09/29/16 09/29/16 19:00 20:00 21:00 Temperature 98.2 F Pulse Rate 76 75 72 Respiratory 19 14 11 L Rate Blood Pressure 94/55 101/68 94/55 O2 Sat by Pulse 92 L 92 L 94 L Oximetry 09/29/16 09/29/16 09/29/16 22:00 23:00 23:02 Temperature Pulse Rate 75 68 72 Respiratory 23 22 19 Rate Blood Pressure 113/62 91/58 91/58 O2 Sat by Pulse 91 L 94 L 93 L Oximetry 09/30/16 09/30/16 09/30/16 00:00 01:00 02:00 Temperature Pulse Rate 68 69 68 Respiratory 13 20 15 Rate Blood Pressure 86/56 87/66 85/57 O2 Sat by Pulse 95 94 L 95 Oximetry 09/30/16 09/30/16 09/30/16 03:00 04:00 04:49 Temperature 97.6 F Pulse Rate 68 66 72 Respiratory 17 11 L Rate Blood Pressure 111/48 98/57 O2 Sat by Pulse 93 L 94 L Oximetry 09/30/16 09/30/16 09/30/16 05:00 06:00 07:00 Temperature Pulse Rate 71 78 74 Respiratory 22 28 H 23 Rate Blood Pressure 100/58 111/58 99/51 O2 Sat by Pulse 96 90 L 90 L Oximetry Labs: Short CBC 09/30/16 Range/Units 04:40 WBC 7.6 (3.8-10.6) k/uL Hgb 8.1 L (13.0-17.5) gm/dL Hct 23.4 L (39.0-53.0) % Plt Count 116 L (150-450) k/uL Neutrophils # 5.7 (1.3-7.7) k/uL BMP 09/29/16 09/30/16 22:21 04:40 Sodium 139 Potassium 3.8 4.1 Chloride 103 Carbon Dioxide 30 BUN 38 H Creatinine 1.10 Glucose 64 L Calcium 7.8 L Liver Function 09/30/16 Range/Units 04:40 Total Bilirubin 1.0 (0.2-1.3) mg/dL AST 47 (17-59) U/L ALT 30 (21-72) U/L Alkaline Phosphatase 43 (38-126) U/L Albumin 2.9 L (3.5-5.0) g/dL ABG ABG pH 7.41 (7.35-7.45) 09/28/16 23:44 ABG pCO2 36 mmHg (35-45) 09/28/16 23:44 ABG pO2 66 mmHg (83-108) L 09/28/16 23:44 ABG O2 Saturation 93.0 % (94-97) L 09/28/16 23:44 PT/INR, D-dimer PT 12.3 sec (9.0-12.0) H 09/30/16 04:40 INR 1.2 (<1.1) 09/30/16 04:40 Microbiology 09/27/16 09:33 Lymph Node Gram Stain - Preliminary 09/27/16 09:33 Lymph Node Tissue Culture - Preliminary 09/27/16 09:33 Lymph Node Anaerobic Culture - Preliminary 09/23/16 18:40 Nasal Swab Nasal Screen MRSA/MSSA (QUINTIN) - Final 09/23/16 18:24 Urine,Clean Catch Urine Culture - Final Pathology: . Specimens: A. Soft Tissue - Thymus B. Lymph Node, Biopsy - Right Paratracheal C. Heart Valve - Portion Posterior Metral Valve D. Heart Valve - Aortic Valve RIGHT PARATRACHEAL LYMPH NODES: FEATURES CONSISTENT WITH HISTOPLASMOSIS. B. RIGHT PARATRACHEAL LYMPH NODES: BENIGN LYMPH NODES WITH CASEATING GRANULOMAS , PROMINENT SINUS HISTIOCYTOSIS AND ANTHRACOTIC PIGMENT. SEE NOTE. C. POSTERIOR LEAFLET MITRAL VALVE: THICKENED HEART VALVE LEAFLET WITH FIBROMYXOID DEGENERATIVE CHANGES. D. AORTIC VALVE: FOCALLY THICKENED HEART VALVE TISSUE WITH FIBROMYXOID DEGENERATIVE CHANGES. Notes The features in part B could represent infectious etiology versus idiopathic. Given the findings, special stains for organisms will be performed on block B1 and an addendum will follow. Lungs: Coarse rhonchi throughout, diminished to his bilateral bases. Respirations are unlabored. He does have a productive cough, producing tenacious reaves, dark red tinged sputum. O2 sat: 91% on 4 L nasal cannula. I/S: 500-750 mL, reviewed with the patient importance of using his incentive spirometry every hour while awake. Patient demonstrated proper use of his incentive spirometry. Heart: S1S2, regular rhythm and rate, bedside telemetry showing normal sinus rhythm heart rate 75. Sternum stable, chest incision clean with silverlon dressing clean and dry. Heart hugger in place, patient demonstrating proper use of his heart hugger. Knee-high ORLIN hose and sequential compression devices in place to bilateral lower extremities. +1 edema noted to his bilateral lower extremities. Abdomen: Soft, Positive bowel sounds present in all 4 quadrants, positive flatus. CBGs: 95-150 mg/dL in the last 24 hours. U/O: Adequate, 850 mL out in the last 8 hours. Chest Tubes: Right pleural chest tube without air leak, 300 mL output in the last 12 hours, 570 mL output in the last 24 hours. The chest tube remains to continuous wall suction at -20 cm H2O and is draining thin serosanguineous drainage. Active Medications Hydrocodone Bitart/Acetaminophen (Bluff 5-325) 2 each PO Q4HR PRN PRN Reason: Severe Pain Last Admin: 09/30/16 02:53 Dose: 2 each Hydrocodone Bitart/Acetaminophen (Bluff 5-325) 1 each PO Q4HR PRN PRN Reason: Moderate Pain Last Admin: 09/30/16 04:54 Dose: 1 each Albuterol/Ipratropium (Duoneb 0.5 Mg-3 Mg/3 Ml Soln) 3 ml INHALATION RT-Q2H PRN PRN Reason: Shortness Of Breath Or Wheezing Last Admin: 09/30/16 04:57 Dose: 3 ml Aspirin (Aspirin) 325 mg PO DAILY [facility] Last Admin: 09/29/16 07:46 Dose: 325 mg Atorvastatin Calcium (Lipitor) 40 mg PO HS [facility] Last Admin: 09/29/16 20:11 Dose: 40 mg Bisacodyl (Dulcolax) 10 mg RECTAL DAILY PRN PRN Reason: Constipation Furosemide (Lasix) 40 mg IV Q12H [facility] Last Admin: 09/30/16 06:37 Dose: 40 mg Heparin Sodium (Porcine) (Heparin) 5,000 unit SQ Q8HR [facility] Last Admin: 09/29/16 23:33 Dose: 5,000 unit Insulin Aspart (Novolog Mix 70-30 Vial) 48 unit SQ AC-BRKFST [facility] Last Admin: 09/29/16 10:10 Dose: 48 unit Insulin Human Lispro (Humalog) 12 unit SQ AC-SUPPER [facility] Last Admin: 09/29/16 19:15 Dose: 12 unit Insulin Human Lispro (Humalog) 0 unit SQ ACHS [facility] PRN Reason: Protocol Last Admin: 09/29/16 21:58 Dose: Not Given Insulin Human NPH (Humulin N) 12 unit SQ HS [facility] Last Admin: 09/29/16 20:10 Dose: 12 unit Levothyroxine Sodium (Synthroid) 150 mcg PO DAILY@0630 [facility] Magnesium Hydroxide (Milk Of Magnesia) 2,400 mg PO BID PRN PRN Reason: Constipation Metoprolol Tartrate (Lopressor) 25 mg PO BID [facility] Miscellaneous Information (Magnesium Per Protocol) 1 each MISCELLANE DAILY PRN ; Protocol PRN Reason: Per Protocol Miscellaneous Information (Phosphorus Per Protocol) 1 each MISCELLANE DAILY PRN ; Protocol PRN Reason: Per Protocol Miscellaneous Information (Potassium Per Protocol) 1 each MISCELLANE DAILY PRN ; Protocol PRN Reason: Per Protocol Miscellaneous Information (Potassium Per Protocol) 1 each MISCELLANE DAILY PRN ; Protocol PRN Reason: Per Protocol Ondansetron HCl (Zofran) 4 mg IVP Q6HR PRN PRN Reason: Nausea And Vomiting Pantoprazole Sodium (Protonix) 40 mg PO AC-BRKFST [facility] Senna/Docusate Sodium (Senokot-S) 2 each PO HS [facility] Last Admin: 09/29/16 21:55 Dose: 2 each Sodium Chloride (Saline Flush) 10 ml IV BID [facility] Last Admin: 09/29/16 23:32 Dose: 10 ml 24 hr Total: Intake & Output 09/28/16 09/29/16 09/30/16 10/01/16 06:59 06:59 06:59 06:59 Intake Total 5021.312 1637.106 381 Output Total 7212 1867 2525 500 Balance -2190.688 -229.894 -2144 -500 Weight 118.7 kg 120 kg 122.4 kg Plan: 1. Continue aspirin, Lipitor, his Lopressor will be increased to 25 mg by mouth twice a day. 2. Encourage incentive spirometry use. 3. Continue Lasix 40 mg IV twice a day. 4. We will monitor his chest tube output throughout the day today and possibly discontinue his right pleural chest tube. 5. Encourage increased in activity. Out of bed to chair with ambulation in room today. Physical therapy to follow. 6. GI/DVT prophylaxis. 7. Diabetic management and insulin per primary service. 8. His home dose of levothyroxine will be restarted, history of hypothyroidism , post thyroidectomy for thyroid cancer. 9. He will be transferred to [address] [place] [address] Ramos for paratracheal lymph node pathology, consistent with histoplasmosis. 11. If his right pleural chest tube is discontinued today we will restart his Coumadin. 12. More recommendations as patient progresses.
[2016-09-30] MEDS: INSULIN LISPRO (humaLOG) 300 UNIT/3 ML VIAL SQ SCH ×5 (08:49→20:47)
[2016-09-30] MEDS: PANTOPRAZOLE 40 MG TABLET PO SCH (08:50)
[2016-09-30] MEDS: HEPARIN SODIUM,PORCINE 5,000 UNIT/ML 1 ML VIAL SQ SCH ×3 (08:50→22:59)
[2016-09-30] MEDS: ASPIRIN 325 MG TAB PO SCH (08:50)
[2016-09-30] MEDS: LEVOTHYROXINE 75 MCG TAB PO SCH (08:51)
[2016-09-30] MEDS: INSULN ASP PRT/INSULIN ASPART 100 UNIT/ML 10 ML VIAL SQ SCH (08:55)
[2016-09-30] MEDS: METOPROLOL TARTRATE 25 MG TAB PO SCH ×2 (10:33→21:57)
--- NOTE | 2016-09-30 11:49 | PN ---
This gentleman underwent aortic valve replacement, mitral valve repair and maze procedure. Hemodynamically, he is stable, doing well. Remains in sinus rhythm. Working on incentive spirometry. Vital signs are stable. S1, S2 heard normally. Short systolic murmur at the base. Lungs reveal diminished air entry. Abdomen and lower extremity exam is unchanged. I am recommending continued incentive spirometry, pulmonary toilet and same medications.
--- NOTE | 2016-09-30 12:47 | P.CONS ---
History of Present Illness - Reason for Consult Consult date: 09/30/16 Histoplasmosis on lymph node biopsy - History of Present Illness This is a 71-year-old male who came in the hospital on September 23 and underwent a JAYDE and heart catheterization showing a ruptured chordae tendonae, mitral regurgitation, moderate pulmonary hypertension, with history of paroxysmal atrial fibrillation and heart failure. 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 He remains in intensive care unit. He has had a left chest tube removed and right chest tube remains in place. He is reaching 750 ML on incentive spirometry. He is not currently on any antibiotics. He has been afebrile. No leukocytosis. He states his shortness of breath is improved now after surgery. He is bringing up significant amount of sputum. He denies any nausea, vomiting, diarrhea. Appetite is somewhat Review of Systems All systems: negative Constitutional: Denies chills, Denies fever, Denies weight loss Eyes: denies blurred vision, denies pain Ears, nose, mouth and throat: Denies dental pain, Denies headache, Denies mouth pain, Denies sore throat Cardiovascular: Denies chest pain, Denies shortness of breath Respiratory: Reports cough, Reports cough with sputum, Reports dyspnea, Reports excessive sputum, Denies hemoptysis, Denies home oxygen Gastrointestinal: Denies abdominal pain, Denies diarrhea, Denies nausea, Denies vomiting Musculoskeletal: Denies myalgias Integumentary: Denies pruritus, Denies rash Neurological: Denies numbness, Denies weakness Psychiatric: Denies anxiety, Denies depression Endocrine: Denies fatigue, Denies weight change Past Medical History Past Medical History: Atrial Fibrillation, Cancer, Heart Failure, Hyperlipidemia , Osteoarthritis (OA), Thyroid Disorder Additional Past Medical History / Comment(s): THYROID CANCER ,SEE DR FLORES 'S H&P, varicose veins, "fluid in lungs", rheumatic fever, paroxysmal atrial fibrillation, aortic valve insufficiency, mitral valve regurgitation, moderate pulmonary hypertension History of Any Multi-Drug Resistant Organisms: None Reported Past Surgical History: Joint Replacement Additional Past Surgical History / Comment(s): thyroidectomy, total left knee replacement, JAYDE, aortic valve replacement with bovine valve, mitral valve repair, mediastinal lymph node biopsy Past Anesthesia/Blood Transfusion Reactions: No Reported Reaction Past Psychological History: No Psychological Hx Reported Additional Psychological History / Comment(s): . Smoking Status: Former smoker Past Alcohol Use History: Rare Additional Past Alcohol Use History / Comment(s): SMOKED 3 PPD. Started smoking in 1959 and QUIT SMOKING 1979. Pt smoked cigars on and off from 1991 until 1999. He denies any medical marijuana, marijuana, street drug use. He states he has not had any alcohol intake for the past 3 months. He usually drinks 0-2 alcoholic beverages per day. He has traveled in the past in [place], [place] , [place], [facility], [place] and [place]. He has worked in the past at [employer]. Past Drug Use History: None Reported - Past Family History Father Family Medical History: Coronary Artery Disease (CAD) Additional Family Medical History / Comment(s): Father of "heart problems" at the age of 76yrs. Mother Family Medical History: No Reported History Additional Family Medical History / Comment(s): Mother at the age of 92yrs. VARICOSE VEINS Brother(s) Family Medical History: Cancer Additional Family Medical History / Comment(s): LIVER CA. BLOOD CLOT. Medications and Allergies Home Medications Medication Instructions Recorded Confirmed Type Aspirin 81 mg PO DAILY 11/14/14 09/23/16 History Levothyroxine Sodium [Synthroid] 150 mcg PO DAILY 11/15/14 09/23/16 History Lovastatin [Mevacor] 80 mg PO HS 06/17/16 09/23/16 History Lisinopril [Prinivil] 20 mg PO DAILY 08/09/16 09/23/16 History Warfarin [Coumadin] 5 mg PO DAILY 08/09/16 09/23/16 History Furosemide [Lasix] 40 mg PO DAILY 09/22/16 09/23/16 History Metoprolol Tartrate [Lopressor] 50 mg PO BID 09/22/16 09/23/16 History Potassium Chloride [K-Tab ER] 10 meq PO DAILY 09/22/16 09/23/16 History Allergies Allergy/AdvReac Type Severity Reaction Status Date / Time No Known Allergies Allergy Verified 09/23/16 08:13 Physical Exam Vitals: Vital Signs Temp Pulse Resp BP Pulse Ox 09/30/16 08:48 77 09/30/16 08:38 77 09/30/16 08:00 98.7 F 77 19 96/48 94 L 04/06/17 07:00 74 23 99/51 90 L 09/30/16 06:00 78 28 H 111/58 90 L 09/30/16 05:00 71 22 100/58 96 09/30/16 04:49 72 09/30/16 04:00 97.6 F 66 11 L 98/57 94 L 09/30/16 03:00 68 17 111/48 93 L 09/30/16 02:00 68 15 85/57 95 09/30/16 01:00 69 20 87/66 94 L 09/30/16 00:00 68 13 86/56 95 09/29/16 23:02 72 19 91/58 93 L 09/29/16 23:00 68 22 91/58 94 L 09/29/16 22:00 75 23 113/62 91 L 09/29/16 21:00 72 11 L 94/55 94 L 09/29/16 20:00 98.2 F 75 14 101/68 92 L 09/29/16 19:00 76 19 94/55 92 L 09/29/16 18:00 75 20 116/46 92 L 09/29/16 17:00 73 39 H 100/67 95 09/29/16 16:00 98.1 F 70 16 96/48 92 L 09/29/16 15:00 74 16 84/59 86 L 09/29/16 14:00 71 22 94/53 92 L 09/29/16 13:00 68 24 97/56 94 L 09/29/16 12:00 98.1 F 68 14 96/62 94 L 09/29/16 11:00 68 15 104/58 92 L Intake and Output 09/29/16 09/30/16 09/30/16 22:59 06:59 14:59 Intake Total 240 Output Total 704 650 905 Balance -645 -025 -625 Intake: Oral 240 Output: Chest Tube Drainage 60 305 Chest Tube Right Lateral 60 305 Chest Urine 475 650 600 Other: Voiding Method Indwelling Catheter Indwelling Catheter # Voids 0 Weight 122.4 kg Gen: This is a 71-year-old male. He is sitting in a chair at the bedside and appears to be in no acute distress. Frequent congested cough noted with reaves-colored sputum production. HEENT: Head is atraumatic, normocephalic. Pupils equal, round. Sclerae is anicteric. Conjunctiva slightly pale. Mucous membranes of the mouth are moist. No thrush noted. NECK: Supple. No JVD. No lymphadenopathy. No thyromegaly. LUNGS: Coarse rhonchi. No intercostal retractions. HEART: Regular rate and rhythm. No murmur. Dressing on sternal wound with no breakthrough bleeding or drainage. Right sided pleural chest tube in place. ABDOMEN: Soft. Bowel sounds are present. No masses. No tenderness. EXTREMITIES: +1 bilateral pedal edema. No calf tenderness. SCDs and ORLIN hose in place. NEUROLOGICAL: Patient is awake, alert and oriented x3. Cranial nerves 2 through 12 are grossly intact. Results Results: Laboratory Results WBC 7.6 k/uL (3.8-10.6) 09/30/16 04:40 RBC 2.50 m/uL (4.30-5.90) L 09/30/16 04:40 Hgb 8.1 gm/dL (13.0-17.5) L 09/30/16 04:40 Hct 23.4 % (39.0-53.0) L 09/30/16 04:40 MCV 93.8 fL (80.0-100.0) 09/30/16 04:40 MCH 32.4 pg (25.0-35.0) 09/30/16 04:40 MCHC 34.6 g/dL (31.0-37.0) 09/30/16 04:40 RDW 16.6 % (11.5-15.5) H 09/30/16 04:40 Plt Count 116 k/uL (150-450) L 09/30/16 04:40 Neutrophils % 76 % 09/30/16 04:40 Lymphocytes % 11 % 09/30/16 04:40 Monocytes % 5 % 09/30/16 04:40 Eosinophils % 7 % 09/30/16 04:40 Basophils % 0 % 09/30/16 04:40 Neutrophils # 5.7 k/uL (1.3-7.7) 09/30/16 04:40 Lymphocytes # 0.8 k/uL (1.0-4.8) L 09/30/16 04:40 Monocytes # 0.4 k/uL (0-1.0) 09/30/16 04:40 Eosinophils # 0.5 k/uL (0-0.7) 09/30/16 04:40 Basophils # 0.0 k/uL (0-0.2) 09/30/16 04:40 Anisocytosis Slight 09/30/16 04:40 PT 12.3 sec (9.0-12.0) H 09/30/16 04:40 INR 1.2 (<1.1) 09/30/16 04:40 APTT 25.9 sec (22.0-30.0) 09/28/16 04:05 Sample Site [place] 09/28/16 23:44 O2 Saturation 66.6 % 09/23/16 09:40 ABG Heart Catheter Src RA #2 09/23/16 09:40 ABG pH 7.41 (7.35-7.45) 09/28/16 23:44 ABG pCO2 36 mmHg (35-45) 09/28/16 23:44 ABG pO2 66 mmHg (83-108) L 09/28/16 23:44 ABG HCO3 22 mmol/L (21-25) 09/28/16 23:44 ABG Total CO2 23 mmol/L (19-24) 09/28/16 23:44 ABG O2 Saturation 93.0 % (94-97) L 09/28/16 23:44 ABG Base Excess -1.9 mmol/L 09/28/16 23:44 ABG Hematocrit 30 % (34.0-46.0) L 09/27/16 14:20 ABG Sodium 143 mmol/L (135-146) 09/27/16 14:20 ABG Potassium 4.0 mmol/L (3.4-4.5) 09/27/16 14:20 Hemoglobin 12.2 g/dL 09/23/16 09:40 FiO2 40 % 09/28/16 23:44 Sodium 139 mmol/L (137-145) 09/30/16 04:40 Potassium 4.1 mmol/L (3.5-5.1) 09/30/16 04:40 Chloride 103 mmol/L (98-107) 09/30/16 04:40 Carbon Dioxide 30 mmol/L (22-30) 09/30/16 04:40 Anion Gap 6 mmol/L 09/30/16 04:40 BUN 38 mg/dL (9-20) H 09/30/16 04:40 Creatinine 1.10 mg/dL (0.66-1.25) 09/30/16 04:40 Est GFR (MDRD) Af Amer >60 (>60 ml/min/1.73 sqM) 09/30/16 04:40 Est GFR (MDRD) Non-Af >60 (>60 ml/min/1.73 sqM) 09/30/16 04:40 Glucose 64 mg/dL (74-99) L 09/30/16 04:40 POC Glucose (mg/dL) 152 mg/dL (75-99) H 09/30/16 07:53 POC Glu [employer] ID Randee Cline 09/30/16 07:[address] Glu mg/dL 128 mg/dL 09/24/16 05:33 Hemoglobin A1c 6.1 % (4.2-6.1) 09/24/16 05:33 Calcium 7.8 mg/dL (8.4-10.2) L 09/30/16 04:40 Ionized Calcium Guille 4.4 mg/dL (4.5-5.3) L 09/30/16 04:40 Phosphorus 4.5 mg/dL (2.5-4.5) 09/27/16 20:25 Magnesium 2.4 mg/dL (1.6-2.3) H 09/30/16 04:40 Total Bilirubin 1.0 mg/dL (0.2-1.3) 09/30/16 04:40 AST 47 U/L (17-59) 09/30/16 04:40 ALT 30 U/L (21-72) 09/30/16 04:40 Alkaline Phosphatase 43 U/L (38-126) 09/30/16 04:40 NT-Pro-B Natriuret Pep 702 pg/mL 09/24/16 05:33 Total Protein 5.1 g/dL (6.3-8.2) L 09/30/16 04:40 Albumin 2.9 g/dL (3.5-5.0) L 09/30/16 04:40 Triglycerides 160 mg/dL (<150) H 09/24/16 05:33 Cholesterol 151 mg/dL (<200) 09/24/16 05:33 LDL Cholesterol, Calc 85 mg/dL (0-99) 09/24/16 05:33 HDL Cholesterol 34 mg/dL (40-60) L 09/24/16 05:33 TSH 23.400 mIU/L (0.465-4.680) H 09/24/16 05:33 Free T4 1.28 ng/dL (0.78-2.19) 09/24/16 05:33 Arterial Blood Potassium 4.0 mmol/L (3.4-4.5) 09/27/16 14:20 Urine Color Light Yellow 09/23/16 18:24 Urine Appearance Clear (Clear) 09/23/16 18:24 Urine pH 6.0 (5.0-8.0) 09/23/16 18:24 Ur Specific Fisher 1.011 (1.001-1.035) 09/23/16 18:24 Urine Protein Negative (Negative) 09/23/16 18:24 Urine Glucose (UA) Negative (Negative) 09/23/16 18:24 Urine Ketones Negative (Negative) 09/23/16 18:24 Urine Blood Negative (Negative) 09/23/16 18:24 Urine Nitrite Negative (Negative) 09/23/16 18:24 Urine Bilirubin Negative (Negative) 09/23/16 18:24 Urine Urobilinogen <2.0 mg/dL (<2.0) 09/23/16 18:24 Ur Leukocyte Esterase Negative (Negative) 09/23/16 18:24 Hepatitis A IgM Ab NEGATIVE 09/24/16 05:33 Hep Bs Antigen Negative 09/24/16 05:33 Hep B Core IgM Ab NEGATIVE 09/24/16 05:33 Hep C IgG Ab Negative (Negative) 09/24/16 05:33 Blood Type O Positive 09/26/16 05:56 Blood Type Recheck No 09/26/16 05:56 Antibody Screen NEGATIVE 09/26/16 05:56 Crossmatch See Detail 09/26/16 05:56 Transfuse Plasma 09/27/16 09/27/16 12:44 Transfuse Platelets 09/27/16 09/27/16 12:44 Spec Expiration Date 09/29/2016 09/26/16 05:56 CBC & Chem 7: 09/30/16 04:40 09/30/16 04:40 Labs: Abnormal Lab Results - Last 24 Hours (Table) 09/27/16 09/27/16 09/27/16 Range/Units 08:37 09:07 10:11 RBC (4.30-5.90) m/uL Hgb (13.0-17.5) gm/dL Hct (39.0-53.0) % RDW (11.5-15.5) % Plt Count (150-450) k/uL Lymphocytes # (1.0-4.8) k/uL PT (9.0-12.0) sec ABG pH (7.35-7.45) ABG pCO2 (35-45) mmHg ABG pO2 143 H 186 H 307 H (83-108) mmHg ABG HCO3 27 H (21-25) mmol/L ABG Total CO2 26 H 25 H 28 H (19-24) mmol/L ABG O2 Saturation 99.3 H 99.7 H 99.9 H (94-97) % ABG Hematocrit (34.0-46.0) % ABG Potassium (3.4-4.5) mmol/L BUN (9-20) mg/dL Glucose (74-99) mg/dL POC Glucose (mg/dL) (75-99) mg/dL Calcium (8.4-10.2) mg/dL Ionized Calcium Guille (4.5-5.3) mg/dL Magnesium (1.6-2.3) mg/dL Total Protein (6.3-8.2) g/dL Albumin (3.5-5.0) g/dL Arterial Blood Potassium (3.4-4.5) mmol/L 09/27/16 09/27/16 09/27/16 Range/Units 10:54 11:34 12:09 RBC (4.30-5.90) m/uL Hgb (13.0-17.5) gm/dL Hct (39.0-53.0) % RDW (11.5-15.5) % Plt Count (150-450) k/uL Lymphocytes # (1.0-4.8) k/uL PT (9.0-12.0) sec ABG pH 7.28 L (7.35-7.45) ABG pCO2 56 H (35-45) mmHg ABG pO2 288 H 233 H 189 H (83-108) mmHg ABG HCO3 (21-25) mmol/L ABG Total CO2 26 H 27 H 25 H (19-24) mmol/L ABG O2 Saturation 99.9 H 99.7 H 99.6 H (94-97) % ABG Hematocrit 32 L 33 L 32 L (34.0-46.0) % ABG Potassium 4.7 H 4.9 H (3.4-4.5) mmol/L BUN (9-20) mg/dL Glucose (74-99) mg/dL POC Glucose (mg/dL) (75-99) mg/dL Calcium (8.4-10.2) mg/dL Ionized Calcium Guille (4.5-5.3) mg/dL Magnesium (1.6-2.3) mg/dL Total Protein (6.3-8.2) g/dL Albumin (3.5-5.0) g/dL Arterial Blood Potassium 4.7 H 4.9 H (3.4-4.5) mmol/L 09/27/16 09/27/16 09/27/16 Range/Units 12:41 13:19 13:43 RBC (4.30-5.90) m/uL Hgb (13.0-17.5) gm/dL Hct (39.0-53.0) % RDW (11.5-15.5) % Plt Count (150-450) k/uL Lymphocytes # (1.0-4.8) k/uL PT (9.0-12.0) sec ABG pH 7.30 L (7.35-7.45) ABG pCO2 47 H (35-45) mmHg ABG pO2 347 H 338 H 68 L (83-108) mmHg ABG HCO3 20 L (21-25) mmol/L ABG Total CO2 25 H (19-24) mmol/L ABG O2 Saturation 99.9 H 99.9 H 91.2 L (94-97) % ABG Hematocrit 31 L 28 L 29 L (34.0-46.0) % ABG Potassium 4.6 H 4.6 H (3.4-4.5) mmol/L BUN (9-20) mg/dL Glucose (74-99) mg/dL POC Glucose (mg/dL) (75-99) mg/dL Calcium (8.4-10.2) mg/dL Ionized Calcium Guille (4.5-5.3) mg/dL Magnesium (1.6-2.3) mg/dL Total Protein (6.3-8.2) g/dL Albumin (3.5-5.0) g/dL Arterial Blood Potassium 4.6 H 4.6 H (3.4-4.5) mmol/L 09/27/16 09/29/16 09/29/16 Range/Units 14:20 12:11 17:57 RBC (4.30-5.90) m/uL Hgb (13.0-17.5) gm/dL Hct (39.0-53.0) % RDW (11.5-15.5) % Plt Count (150-450) k/uL Lymphocytes # (1.0-4.8) k/uL PT (9.0-12.0) sec ABG pH (7.35-7.45) ABG pCO2 (35-45) mmHg ABG pO2 67 L (83-108) mmHg ABG HCO3 (21-25) mmol/L ABG Total CO2 26 H (19-24) mmol/L ABG O2 Saturation 92.0 L (94-97) % ABG Hematocrit 30 L (34.0-46.0) % ABG Potassium (3.4-4.5) mmol/L BUN (9-20) mg/dL Glucose (74-99) mg/dL POC Glucose (mg/dL) 134 H 135 H (75-99) mg/dL Calcium (8.4-10.2) mg/dL Ionized Calcium Guille (4.5-5.3) mg/dL Magnesium (1.6-2.3) mg/dL Total Protein (6.3-8.2) g/dL Albumin (3.5-5.0) g/dL Arterial Blood Potassium (3.4-4.5) mmol/L 09/30/16 09/30/16 09/30/16 Range/Units 04:40 04:40 04:40 RBC 2.50 L (4.30-5.90) m/uL Hgb 8.1 L (13.0-17.5) gm/dL Hct 23.4 L (39.0-53.0) % RDW 16.6 H (11.5-15.5) % Plt Count 116 L (150-450) k/uL Lymphocytes # 0.8 L (1.0-4.8) k/uL PT 12.3 H (9.0-12.0) sec ABG pH (7.35-7.45) ABG pCO2 (35-45) mmHg ABG pO2 (83-108) mmHg ABG HCO3 (21-25) mmol/L ABG Total CO2 (19-24) mmol/L ABG O2 Saturation (94-97) % ABG Hematocrit (34.0-46.0) % ABG Potassium (3.4-4.5) mmol/L BUN 38 H (9-20) mg/dL Glucose 64 L (74-99) mg/dL POC Glucose (mg/dL) (75-99) mg/dL Calcium 7.8 L (8.4-10.2) mg/dL Ionized Calcium Guille 4.4 L (4.5-5.3) mg/dL Magnesium 2.4 H (1.6-2.3) mg/dL Total Protein 5.1 L (6.3-8.2) g/dL Albumin 2.9 L (3.5-5.0) g/dL Arterial Blood Potassium (3.4-4.5) mmol/L 09/30/16 Range/Units 07:53 RBC (4.30-5.90) m/uL Hgb (13.0-17.5) gm/dL Hct (39.0-53.0) % RDW (11.5-15.5) % Plt Count (150-450) k/uL Lymphocytes # (1.0-4.8) k/uL PT (9.0-12.0) sec ABG pH (7.35-7.45) ABG pCO2 (35-45) mmHg ABG pO2 (83-108) mmHg ABG HCO3 (21-25) mmol/L ABG Total CO2 (19-24) mmol/L ABG O2 Saturation (94-97) % ABG Hematocrit (34.0-46.0) % ABG Potassium (3.4-4.5) mmol/L BUN (9-20) mg/dL Glucose (74-99) mg/dL POC Glucose (mg/dL) 152 H (75-99) mg/dL Calcium (8.4-10.2) mg/dL Ionized Calcium Guille (4.5-5.3) mg/dL Magnesium (1.6-2.3) mg/dL Total Protein (6.3-8.2) g/dL Albumin (3.5-5.0) g/dL Arterial Blood Potassium (3.4-4.5) mmol/L Microbiology - Last 24 Hours (Table) 09/27/16 09:33 Gram Stain - Preliminary Lymph Node Tissue Culture - Preliminary 09/27/16 09:33 Anaerobic Culture - Preliminary Lymph Node Assessment and Plan Plan: This is a 71-year-old male who presented to the hospital for JAYDE and heart catheterization and it has subsequently undergone aortic valve replacement , mitral valve repair and mediastinal lymph node biopsy. 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 Information will be provided to the patient regarding this. Continue supportive care. Further medications as patient progresses. The above dictated assessment and findings were discussed with Dr. Ramos. The impression and plan of care have been directed as dictated. Kayla Crawford nurse practitioner acting as scribe for Dr. Ramos. Time with Patient: Greater than 30
[2016-09-30 12:55] LABS: Glucose,Whole Blood 102 mg/dL (75-99)
--- NOTE | 2016-09-30 17:35 | P.PN ---
Subjective 71-year-old male patient underwent aortic valve replacement and mitral valve repair. Patient is postop day #0. I saw this patient immediately after he arrived to the intensive care unit. The patient was still quite sedated and he was intubated on a mechanical ventilator. I reviewed the initial postsurgical chest x-ray which showed some atelectatic changes within the right lower lobe. ET tube was in a good location. The patient's chest tube were all in good location. Initial blood gases showed a pH of 7.28 with a pCO2 of 56 and pO2 of 220 and based on that the patient was placed on a tidal volume of 700 with a rate of 12. Currently he is on IA PEEP of 10 and FiO2 of 60%. Subsequent blood gases showed a pH of 7.36 with a pCO2 of 44 and pO2 of 53. The patient has 2 mediastinal chest tubes, and right pleural and the left pleural chest tube. The cardiac output of this point is at 6.6 with an index of 2.24. The CVP is at 19. The mean pulmonary artery pressure is 19. The patient is currently on no pressors. Most recent mean arterial pressure is at 18 the patient is producing adequate amount of urine output. The patient already received a total of 5 is of 12.5 g of albumin. On 09/29/2016 the patient is postop day #2. The patient is having some increased rhonchi and rest or secretions which she is unable to cough out. Today's chest x-ray shows atelectatic changes in the right lower lungs appear segment and some small bilateral pleural effusions. The patient was already given a dose of Lasix and he diuresed significantly in order of 1 L overall diuresis since he was given Lasix. His still has all of these chest tubes in place. The mediastinal chest tubes are been already removed. The patient's left pleural chest tube will be also pulled out today. He is hemodynamically stable. He is still on 4.5 units of insulin drip for blood sugar control and this will be switched with a 3. insulin scale utilizing NPH and ascites scale coverage. The patient has adequate pain control. Adequate urine output. Adequate mentation. Pulling up somewhat between 500-750 on his incentive spirometer. Hemoglobin was stable at 7.9. The cardiac rhythm is remains sinus and there may be some plans to put him on anticoagulation at a later stage. Cardiology is also on the case. On 09/30/2016 patient is postop day #3. The patient is doing very well. The patient is sitting up on a chair. There are small lung volumes and today's chest x-ray with some atelectatic changes small effusion in the right lung base. The patient is still has a right-sided chest tube. No chest pain. No drainage from the right-sided chest tube is limited and the patient will likely have his chest tube removed today. He has been switched to insulin long-acting and his blood pressure is under good control. He is hemodynamically stable. No other significant events over the past 24 hours. Objective - Vital Signs Vital signs: Vital Signs Temp 98.7 F 09/30/16 16:00 Pulse 74 09/30/16 16:00 Resp 19 09/30/16 16:00 BP 97/52 09/30/16 16:00 Pulse Ox 95 09/30/16 16:00 Intake & Output 09/29/16 09/30/16 09/30/16 18:59 06:59 18:59 Intake Total 141 240 360 Output Total 1370 1155 2405 Balance -1229 -915 -2045 Weight 122.4 kg Intake: IV 21 Pressure Bag 21 Intake, IV Titration 120 Amount Lactated Ringers 1,000 ml 120 @ 20 mls/hr IV .Q24H [facility] Rx#:[id number] Oral 240 360 Output: Chest Tube Drainage 380 30 405 Chest Tube Left Anterior 190 Chest Chest Tube Right Lateral 190 30 405 Chest Urine 990 1125 2000 Other: Voiding Method Indwelling Catheter Indwelling Catheter Urinal # Voids 0 ABP, PAP, CO, CI - Last Documented Arterial Blood Pressure 110/53 Pulmonary Artery Pressure 40/20 Cardiac Output 4.2 Cardiac Index 1.9 - Exam Head exam was generally normal. There was no scleral icterus or corneal arcus. Mucous membranes were moist.Neck was supple and without jugular venous distension, thyromegaly, or carotid bruits. Carotids were easily palpable bilaterally. There was no adenopathy. Patient has orogastric and orotracheal tube are both in place. The patient has a right IJ Cordis in place. Lung sounds are equal and symmetrical bilaterally. No wheezes or rhonchi.Cardiac exam revealed the PMI to be normally situated and sized. The rhythm was regular and no extrasystoles were noted during several minutes of auscultation. The first and second heart sounds were normal and physiologic splitting of the second heart sound was noted. There were no murmurs, rubs, clicks, or gallops. Sternum is stable clean and intact. The patient has right pleural chest tube. Abdominal exam revealed normal bowel sounds. The abdomen was soft, non- tender, and without masses, organomegaly, or appreciable enlargement of the abdominal aorta.Examination of the extremities revealed easily palpable radial, femoral and pedal pulses. There was no cyanosis, clubbing or edema. As per the right pleural space. - Labs CBC & Chem 7: 09/30/16 04:40 09/30/16 04:40 Labs: Abnormal Lab Results - Last 24 Hours (Table) 09/29/16 09/30/16 09/30/16 Range/Units 17:57 04:40 04:40 RBC 2.50 L (4.30-5.90) m/uL Hgb 8.1 L (13.0-17.5) gm/dL Hct 23.4 L (39.0-53.0) % RDW 16.6 H (11.5-15.5) % Plt Count 116 L (150-450) k/uL Lymphocytes # 0.8 L (1.0-4.8) k/uL PT 12.3 H (9.0-12.0) sec BUN (9-20) mg/dL Glucose (74-99) mg/dL POC Glucose (mg/dL) 135 H (75-99) mg/dL Calcium (8.4-10.2) mg/dL Ionized Calcium Guille (4.5-5.3) mg/dL Magnesium (1.6-2.3) mg/dL Total Protein (6.3-8.2) g/dL Albumin (3.5-5.0) g/dL 09/30/16 09/30/16 09/30/16 Range/Units 04:40 07:53 12:53 RBC (4.30-5.90) m/uL Hgb (13.0-17.5) gm/dL Hct (39.0-53.0) % RDW (11.5-15.5) % Plt Count (150-450) k/uL Lymphocytes # (1.0-4.8) k/uL PT (9.0-12.0) sec BUN 38 H (9-20) mg/dL Glucose 64 L (74-99) mg/dL POC Glucose (mg/dL) 152 H 102 H (75-99) mg/dL Calcium 7.8 L (8.4-10.2) mg/dL Ionized Calcium Guille 4.4 L (4.5-5.3) mg/dL Magnesium 2.4 H (1.6-2.3) mg/dL Total Protein 5.1 L (6.3-8.2) g/dL Albumin 2.9 L (3.5-5.0) g/dL Microbiology - Last 24 Hours (Table) 09/27/16 09:33 Gram Stain - Preliminary Lymph Node Tissue Culture - Preliminary 09/27/16 09:33 Anaerobic Culture - Preliminary Lymph Node Assessment and Plan Plan: Assessment 1 status post aortic valve replacement and mitral valve repair, patient is postop day #3. Preoperative disease included severe mitral regurgitation and moderate degree of aortic valve insufficiency. Postop day 3 2 post thoracotomy, extubated without any major difficulties. 3 postoperative right lower lobe atelectatic segmental changes and small effusion the right-sided chest tube will be removed today 4 severe mitral regurgitation and aortic valve insufficiency, preoperatively 5 paroxysmal atrial fibrillation, current rhythm is sinus 6 postoperative anemia with a hemoglobin of 8.1 7 hypothyroidism, post thyroidectomy for thyroid cancer 8 hyperlipidemia 9 hypertension Plan Remove the right-sided chest tube. The patient came in with telemetry. His condition is stable for now.
[2016-09-30] MEDS ORDERED: WARFARIN 5 MG TAB PO ONE (18:00)
[2016-09-30 18:53] LABS: Glucose,Whole Blood 129 mg/dL (75-99)
[2016-09-30] MEDS: INSULIN NPH 300 UNIT/3 ML VIAL SQ SCH (20:47)
[2016-09-30 20:48] LABS: Glucose,Whole Blood 123 mg/dL (75-99)
[2016-09-30] MEDS: SENNOSIDES-DOCUSATE SODIUM 1 EACH TAB PO SCH (20:49)
[2016-09-30] MEDS ORDERED: ITRACONAZOLE 100 MG CAP PO SCH (21:00)
--- NOTE | 2016-09-30 22:16 | P.CON ---
Consult Note - . Consult date: 09/30/16 Assessment/Plan:: This is a 71-year-old male who came in the hospital on September 23 and underwent a JAYDE and heart catheterization showing a ruptured chordae tendonae, mitral regurgitation, moderate pulmonary hypertension, with history of paroxysmal atrial fibrillation and heart failure. 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 He remains in intensive care unit. He has had a left chest tube removed and right chest tube remains in place. He is reaching 750 ML on incentive spirometry. He is not currently on any antibiotics. He has been afebrile. No leukocytosis. He states his shortness of breath is improved now after surgery. He is bringing up significant amount of sputum. He denies any nausea, vomiting, diarrhea. Appetite is somewhat please see the consult note is dictated by nurse practitioner Mrs. Kayla Crawford Is noted this pleasant gentleman has a history of significant valvular heart disease. Also does have a history of thyroid cancer. Recent studies reveal evidence of some increase in the size of the lymph nodes within his mediastinum , comes with the time of his surgery and lymph node biopsies weren't obtained. Fortunately no malignancy was found, however there is evidence of fungal invasion with what appears to be histoplasmosis. For this the infectious diseases consultation was requested. 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 He has lived in [place] and has limited travels, but has been in [place]. We discussed that since his lymph nodes have increased in size and he does have pulmonary symptoms that it is prudent to treat him with itraconazole. His antifungal therapy is usually very well tolerated. We'll start at 200 mg twice a day now. He will be followed in the outpatient setting. I agree with evaluation, assessment and plan this is a by nurse practitioner Mrs. Kayla Crawford
[2016-10-01] MEDS ORDERED: DEXTROSE 5% IN WATER 100 ML with AMIODARONE 150 MG IV ONE (00:07)
[2016-10-01] MEDS: HYDROcodone/APAP 5-325MG 1 EACH TAB PO PRN ×3 (00:10→21:15)
[2016-10-01] MEDS: AMIODARONE 450 MG in DEXTROSE 5% IN WATER 250 ML IV SCH ×6 (00:26→17:20)
[2016-10-01] MEDS: IPRATROPIUM-ALBUTEROL 3 ML NEB INHALATION PRN ×3 (03:46→11:20)
[2016-10-01 05:40] LABS: Anisocytosis Slight; Basophils % (A) 1 %; CH 30.2; CHCM 32.4; Eosinophils # (A) 0.5 k/uL (0-0.7); Eosinophils % (A) 7 %; HCT 25.2 % (39.0-53.0); HDW 2.82; HGB 8.9 gm/dL (13.0-17.5); Luc # (Auto) 0.17; Luc % (Auto) 3; Lymphocytes # (A) 0.7 k/uL (1.0-4.8); Lymphocytes % (A) 11 %; MCHC 35.1 g/dL (31.0-37.0); MCV 93.9 fL (80.0-100.0); Mean Platelet Volume 8.3; Monocytes # (A) 0.4 k/uL (0-1.0); Monocytes % (A) 6 %; Neutrophils # (A) 4.8 k/uL (1.3-7.7); Neutrophils % (A) 72 %; RBC 2.69 m/uL (4.30-5.90); RDW 16.6 % (11.5-15.5); WBC 6.6 k/uL (3.8-10.6); WBC (Perox) 7.11
[2016-10-01 06:04] LABS: Ionized Calcium 4.2 mg/dL (4.5-5.3)
[2016-10-01 06:08] LABS: ALT 30 U/L (21-72); AST 37 U/L (17-59); Alkaline Phosphatase 46 U/L (38-126); Anion Gap 9 mmol/L; Blood Urea Nitrogen 36 mg/dL (9-20); Calcium 7.3 mg/dL (8.4-10.2); Carbon Dioxide 29 mmol/L (22-30); Chloride 97 mmol/L (98-107); Glucose 102 mg/dL (74-99); Magnesium 2.1 mg/dL (1.6-2.3); Non-African American GFR(MDRD) >60 (>60 ml/min/1.73 sqM); Potassium 3.6 mmol/L (3.5-5.1); Sodium 135 mmol/L (137-145); Total Bilirubin 1.1 mg/dL (0.2-1.3); Total Protein 5.2 g/dL (6.3-8.2)
[2016-10-01] MEDS: LEVOTHYROXINE 75 MCG TAB PO SCH (06:17)
[2016-10-01] MEDS: FUROSEMIDE 10 MG/ML 4 ML VIAL IV SCH ×2 (06:17→17:23)
[2016-10-01] MEDS ORDERED: Potassium Replacement Protocol 1 EACH MISC MISCELLANE PRN ×2 (06:31→07:32)
[2016-10-01 06:33] LABS: INR 1.1 (<1.1); Prothrombin Time 11.4 sec (9.0-12.0)
[2016-10-01] MEDS ORDERED: POTASSIUM CHLORIDE ER 20 MEQ TAB.ER PO SCH ×2 (07:00→08:00)
[2016-10-01 07:32] LABS: Glucose,Whole Blood 117 mg/dL (75-99)
--- NOTE | 2016-10-01 07:56 | XR ---
EXAMINATION TYPE: XR chest 1V portable DATE OF EXAM: 10/01/2016 6:31 AM CLINICAL HISTORY: Difficulty breathing and infiltrate progress study. TECHNIQUE: Single AP portable upright view of the chest is obtained. COMPARISON: Chest x-ray from one day earlier FINDINGS: There is interval removal of right basilar chest tube. Sternal wires and metallic cardiac valve are redemonstrated. There is persistent cardiomegaly. There is persistent patchy bibasilar atel ectasis and/or infiltrate with probable small right pleural effusion. Upper lungs are clear without p neumothorax. Somewhat low lung volumes are redemonstrated. Osseous structures are intact. IMPRESSION: Interval removal of right basilar chest tube. There is persistent low lung volumes and ca rdiomegaly with mild central vascular congestion and left greater than right bibasilar atelectasis an d/or infiltrate with new small right pleural effusion suspected. No sizable pneumothorax is noted.
--- NOTE | 2016-10-01 08:20 | PN ---
DATE OF SERVICE: 09/30/2016 This 71-year-old gentleman with past medical history of multiple medical problems had a recent valve surgery. 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 The patient has been closely monitored. Infectious Disease also following the patient closely. The blood sugar is also being monitored. PAST MEDICAL HISTORY: Reviewed. REVIEW OF SYSTEMS: CARDIOVASCULAR: No angina. RESPIRATORY: As mentioned earlier. GI: No nausea. : No dysuria. NERVOUS SYSTEM: No numbness or weakness. The current medications are reviewed and include: 1. [place] 5 mg daily p.r.n. 2. DuoNeb q.i.d. and p.r.n. 3. Aspirin 325 mg daily. 4. Dulcolax. 5. Lasix 40 mg b.i.d. 6. Heparin. 7. NovoLog mixed 48 units subcu breakfast and 12 units a.c. supper. 8. Humulin N 12 units subcu q.h.s. 9. Sporanox 200 mg p.o. b.i.d. 10. Synthroid 150 mg p.o. b.i.d. 11. Milk of Magnesia 12. Lopressor 25 mg p.o. b.i.d. 13. P.r.n. medications. 14. Replacement protocols. 15. Multivitamins 1 p.o. daily. 16. Zofran 4 mg q.6 p.r.n. 17. Protonix 40 mg p.o. PHYSICAL EXAMINATION: Patient is alert and oriented x3. Pulse 82, blood pressure 92/66, respiration 18, temperature 97.8, pulse ox 94% on 4 liters. HEENT: Conjunctivae normal. NECK: No jugular venous distention. CARDIOVASCULAR: S1 and S2, muffled. RESPIRATORY: Breath sounds diminished at the bases. A few scattered rhonchi. ABDOMEN: Soft, nontender. LEGS: No edema, no swelling. NERVOUS SYSTEM: No focal deficits. LABS: WBC 7.6, hemoglobin 8.1, platelets 116. Magnesium is 2.4, albumin is 2.9. ASSESSMENT: 1. Severe mitral regurgitation as well as moderate aortic regurgitation, status post aortic valve replacement as well as mitral valve repair. 2. Status post left biopsy showing histoplasmosis. 3. History of congestive heart failure. 4. History of atrial fibrillation, paroxysmal. 5. Hyperlipidemia. 6. Increased random blood sugar on insulin, possibly diabetes type 2. 7. Anemia, possibly dilutional. 8. History of degenerative joint disease. 9. History of hypothyroidism. 10. History of thyroid cancer. 11. History of thyroidectomy. 12. History nicotine dependence. 13. BMI 43.8. 14. History of chronic obstructive pulmonary disease. 15. Pulmonary nodule 5.7 cm right middle lobe. 16. Hypoalbuminemia with mild to moderate protein and malnutrition. 17. Increased BUN. 18. Thrombocytopenia. RECOMMENDATIONS AND DISCUSSION: This 71-year-old gentleman who presented with multiple complex medical issues, will monitor patient closely. Continue the current medications, symptomatic treatment. Continue beta blockers, antiplatelet agents. Continue Sporanox for histoplasmosis. ID input appreciated. Closely follow with multiple consultants. Prognosis guarded. Encourage incentive spirometry. Discussed with family. Further recommendations to follow. MTDD
--- NOTE | 2016-10-01 08:30 | P.PN ---
Subjective Principal diagnosis: Severe mitral regurgitation, moderate aortic valvular insufficiency, congestive heart failure, history of paroxysmal atrial fibrillation, hypothyroidism, hypertension, and hyperlipidemia. POD #4 aortic valve replacement, mitral valve repair, Frederick maze procedure, intraoperative transesophageal echocardiogram, mediastinal lymph node biopsy Patient currently sitting up in a recliner in no apparent distress. No questions at this time. Objective - Vital Signs Vital signs: Vital Signs Temp 97.6 F 10/01/16 04:00 Pulse 74 10/01/16 07:30 Resp 17 10/01/16 07:00 BP 103/60 10/01/16 07:00 Pulse Ox 97 10/01/16 06:00 Intake & Output 09/30/16 10/01/16 10/01/16 18:59 06:59 18:59 Intake Total 360 830 Output Total 2405 1350 Balance -2044 -520 Weight 120.3 kg Intake: Intake, IV Titration 350 Amount Amiodarone 450 mg In 200 Dextrose 5% in Water 250 ml @ 1 MG/MIN 34.53 mls/ hr IV .Q7H31M [facility] Rx#: [id number] Dextrose 5% in Water 100 150 ml @ 618 mls/hr IV .Q10M ONE with Amiodarone 150 mg Rx#:[id number] Oral 360 480 Output: Chest Tube Drainage 405 Chest Tube Right Lateral 405 Chest Urine 2000 1350 Other: Voiding Method Urinal Urinal ABP, PAP, CO, CI - Last Documented Arterial Blood Pressure 110/53 Pulmonary Artery Pressure 40/20 Cardiac Output 4.2 Cardiac Index 1.9 - Constitutional General appearance: Present: cooperative, no acute distress, obese - Respiratory Details: Lungs sounds diminished bilaterally. Respirations even, nonlabored. Able to achieve 1000 mL on his incentive spirometry. Effective cough. - Cardiovascular Details: S1, S2 present. Regular rate and rhythm, normal sinus rhythm on telemetry. Did have an episode of atrial fibrillation with rapid ventricular response last night with a heart rate in the 120s. Started on amiodarone drip with quick conversion to normal sinus rhythm. Sternum stable. Heart hugger in place with patient demonstrating appropriate use. Teds/SCDs present. - Gastrointestinal Gastrointestinal Comment(s): Abdomen soft, nontender, nondistended. Active bowel sounds 4 quadrants. Positive flatus, negative BM since surgery. Tolerating diet. - Genitourinary Genitourinary Comment(s): Patient voiding clear, yellow urine per urinal. - Integumentary Integumentary Comment(s): Anterior chest covered with dry intact silver dressing. - Musculoskeletal Musculoskeletal: Present: gait normal, strength equal bilaterally - Psychiatric Psychiatric: Present: A&O x's 3, appropriate affect, intact judgment & insight - Allied health notes Allied health notes reviewed: nursing - Labs CBC & Chem 7: 10/01/16 05:00 10/01/16 05:00 Labs: Abnormal Lab Results - Last 24 Hours (Table) 09/30/16 09/30/16 09/30/16 Range/Units 12:53 18:51 20:46 RBC (4.30-5.90) m/uL Hgb (13.0-17.5) gm/dL Hct (39.0-53.0) % RDW (11.5-15.5) % Lymphocytes # (1.0-4.8) k/uL Sodium (137-145) mmol/L Chloride (98-107) mmol/L BUN (9-20) mg/dL Glucose (74-99) mg/dL POC Glucose (mg/dL) 102 H 129 H 123 H (75-99) mg/dL Calcium (8.4-10.2) mg/dL Ionized Calcium Guille (4.5-5.3) mg/dL Total Protein (6.3-8.2) g/dL Albumin (3.5-5.0) g/dL 10/01/16 10/01/16 10/01/16 Range/Units 05:00 05:00 07:29 RBC 2.69 L (4.30-5.90) m/uL Hgb 8.9 L (13.0-17.5) gm/dL Hct 25.2 L (39.0-53.0) % RDW 16.6 H (11.5-15.5) % Lymphocytes # 0.7 L (1.0-4.8) k/uL Sodium 135 L (137-145) mmol/L Chloride 97 L (98-107) mmol/L BUN 36 H (9-20) mg/dL Glucose 102 H (74-99) mg/dL POC Glucose (mg/dL) 117 H (75-99) mg/dL Calcium 7.3 L (8.4-10.2) mg/dL Ionized Calcium Guille 4.2 L (4.5-5.3) mg/dL Total Protein 5.2 L (6.3-8.2) g/dL Albumin 2.8 L (3.5-5.0) g/dL Microbiology - Last 24 Hours (Table) 09/27/16 09:33 Gram Stain - Preliminary Lymph Node Tissue Culture - Preliminary - Imaging and Cardiology Chest x-ray: image reviewed Assessment and Plan (1) Mitral valvular regurgitation Status: Acute (2) Moderate aortic insufficiency Status: Acute (3) Congestive heart failure due to valvular disease Status: Acute (4) Paroxysmal atrial fibrillation Status: Acute (5) Hypothyroidism (acquired) Status: Acute (6) Obesity Status: Acute (7) Hypercholesterolemia Status: Acute (8) Hypertension Status: Acute Plan: 1. Continue aspirin, Lopressor. Lipitor stopped by Dr. Ramos presumably due to drug interaction with Itraconazole. 2. Encourage incentive spirometry use. 3. Continue amiodarone drip, will transition to oral amiodarone. 4. Encourage increased mobility. Out of bed to chair with ambulation in the hallway. Physical therapy to follow. 5. GI/DVT prophylaxis. 6. Diabetic management and insulin per primary service. 7. Transfer to 6 [facility]. selective care when bed available. 8. Will give Coumadin 5 mg this evening. Time with Patient: Greater than 30
[2016-10-01] MEDS ORDERED: BENZOCAINE/MENTHOL LOZENG 1 EACH LOZENGE MUCOUS MEM PRN (08:42)
[2016-10-01] MEDS: INSULIN LISPRO (humaLOG) 300 UNIT/3 ML VIAL SQ SCH ×4 (08:44→21:16)
[2016-10-01] MEDS ORDERED: ITRACONAZOLE 100 MG CAP PO SCH (09:00)
[2016-10-01] MEDS: ASPIRIN 325 MG TAB PO SCH (09:22)
[2016-10-01] MEDS: HEPARIN SODIUM,PORCINE 5,000 UNIT/ML 1 ML VIAL SQ SCH ×2 (09:22→17:21)
[2016-10-01] MEDS: PANTOPRAZOLE 40 MG TABLET PO SCH (09:23)
[2016-10-01] MEDS: METOPROLOL TARTRATE 25 MG TAB PO SCH (09:23)
[2016-10-01] MEDS: INSULN ASP PRT/INSULIN ASPART 100 UNIT/ML 10 ML VIAL SQ SCH (10:56)
[2016-10-01 12:05] LABS: Glucose,Whole Blood 128 mg/dL (75-99)
[2016-10-01] MEDS: AMIODARONE 200 MG TAB PO SCH ×2 (12:09→21:16)
[2016-10-01] MEDS: MULTIVITAMINS, THERA 1 EACH TAB PO SCH (12:10)
[2016-10-01 12:13] VITALS: BMI 39.2
[2016-10-01] MEDS: MAGNESIUM HYDROXIDE 2,400 MG/10 ML CUP PO PRN (12:15)
--- NOTE | 2016-10-01 12:15 | PN ---
This gentleman is status post aortic valve replacement with mitral valve repair and MAZE procedure. He went into atrial flutter briefly yesterday, back in sinus rhythm today. Has been on amiodarone drip. I am recommending that we decrease the Lopressor, continue other medications including incentive spirometry and gradually increase activity. I will also start him on a small dose of Lipitor.
--- NOTE | 2016-10-01 13:17 | P.PN ---
Subjective 71-year-old male patient underwent aortic valve replacement and mitral valve repair. Patient is postop day #0. I saw this patient immediately after he arrived to the intensive care unit. The patient was still quite sedated and he was intubated on a mechanical ventilator. I reviewed the initial postsurgical chest x-ray which showed some atelectatic changes within the right lower lobe. ET tube was in a good location. The patient's chest tube were all in good location. Initial blood gases showed a pH of 7.28 with a pCO2 of 56 and pO2 of 220 and based on that the patient was placed on a tidal volume of 700 with a rate of 12. Currently he is on IA PEEP of 10 and FiO2 of 60%. Subsequent blood gases showed a pH of 7.36 with a pCO2 of 44 and pO2 of 53. The patient has 2 mediastinal chest tubes, and right pleural and the left pleural chest tube. The cardiac output of this point is at 6.6 with an index of 2.24. The CVP is at 19. The mean pulmonary artery pressure is 19. The patient is currently on no pressors. Most recent mean arterial pressure is at 18 the patient is producing adequate amount of urine output. The patient already received a total of 5 is of 12.5 g of albumin. On 09/29/2016 the patient is postop day #2. The patient is having some increased rhonchi and rest or secretions which she is unable to cough out. Today's chest x-ray shows atelectatic changes in the right lower lungs appear segment and some small bilateral pleural effusions. The patient was already given a dose of Lasix and he diuresed significantly in order of 1 L overall diuresis since he was given Lasix. His still has all of these chest tubes in place. The mediastinal chest tubes are been already removed. The patient's left pleural chest tube will be also pulled out today. He is hemodynamically stable. He is still on 4.5 units of insulin drip for blood sugar control and this will be switched with a 3. insulin scale utilizing NPH and ascites scale coverage. The patient has adequate pain control. Adequate urine output. Adequate mentation. Pulling up somewhat between 500-750 on his incentive spirometer. Hemoglobin was stable at 7.9. The cardiac rhythm is remains sinus and there may be some plans to put him on anticoagulation at a later stage. Cardiology is also on the case. On 09/30/2016 patient is postop day #3. The patient is doing very well. The patient is sitting up on a chair. There are small lung volumes and today's chest x-ray with some atelectatic changes small effusion in the right lung base. The patient is still has a right-sided chest tube. No chest pain. No drainage from the right-sided chest tube is limited and the patient will likely have his chest tube removed today. He has been switched to insulin long-acting and his blood pressure is under good control. He is hemodynamically stable. No other significant events over the past 24 hours. On 10/01/2016 the patient is postop day #4. He is doing well. No specific complaints. All of the chest tubes have been removed. Chest x-ray shows small lung volumes and atelectatic changes and small effusion the lung bases. Abdomen slightly distended. He has adequate bowel sounds. He will be given milk of magnesia for bowel motility. Overnight the patient went into atrial fibrillation with rapid ventricular response. The patient was placed on amiodarone per protocol. Currently is on amiodarone maintenance and his cardiac rhythm is in sinus although his having episodes of paroxysmal atrial fibrillation with a controlled rate. He was started also on warfarin regarding long-term anticoagulation. Objective - Vital Signs Vital signs: Vital Signs Temp 98.4 F 10/01/16 12:00 Pulse 83 10/01/16 12:00 Resp 23 10/01/16 12:00 BP 94/56 10/01/16 12:00 Pulse Ox 95 10/01/16 12:00 Intake & Output 09/30/16 10/01/16 10/01/16 18:59 06:59 18:59 Intake Total 360 830 259 Output Total 2405 1350 Balance -2044 -520 259 Weight 120.3 kg 120.3 kg Intake: Intake, IV Titration 350 259 Amount Amiodarone 450 mg In 200 259 Dextrose 5% in Water 250 ml @ 1 MG/MIN 34.53 mls/ hr IV .Q7H31M [facility] Rx#: [id number] Dextrose 5% in Water 100 150 ml @ 618 mls/hr IV .Q10M ONE with Amiodarone 150 mg Rx#:[id number] Oral 360 480 Output: Chest Tube Drainage 405 Chest Tube Right Lateral 405 Chest Urine 2000 1350 Other: Voiding Method Urinal Urinal ABP, PAP, CO, CI - Last Documented Arterial Blood Pressure 110/53 Pulmonary Artery Pressure 40/20 Cardiac Output 4.2 Cardiac Index 1.9 - Exam Head exam was generally normal. There was no scleral icterus or corneal arcus. Mucous membranes were moist.Neck was supple and without jugular venous distension, thyromegaly, or carotid bruits. Carotids were easily palpable bilaterally. There was no adenopathy. Patient has orogastric and orotracheal tube are both in place. The patient has a right IJ Cordis in place. Lung sounds are equal and symmetrical bilaterally. No wheezes or rhonchi.Cardiac exam revealed the PMI to be normally situated and sized. The rhythm was regular and no extrasystoles were noted during several minutes of auscultation. The first and second heart sounds were normal and physiologic splitting of the second heart sound was noted. There were no murmurs, rubs, clicks, or gallops. Sternum is stable clean and intact. The patient has right pleural chest tube. Abdominal exam revealed normal bowel sounds. The abdomen was soft, non- tender, and without masses, organomegaly, or appreciable enlargement of the abdominal aorta.Examination of the extremities revealed easily palpable radial, femoral and pedal pulses. There was no cyanosis, clubbing or edema. As per the right pleural space. - Labs CBC & Chem 7: 10/01/16 05:00 10/01/16 05:00 Labs: Abnormal Lab Results - Last 24 Hours (Table) 09/30/16 09/30/16 10/01/16 Range/Units 18:51 20:46 05:00 RBC 2.69 L (4.30-5.90) m/uL Hgb 8.9 L (13.0-17.5) gm/dL Hct 25.2 L (39.0-53.0) % RDW 16.6 H (11.5-15.5) % Lymphocytes # 0.7 L (1.0-4.8) k/uL Sodium (137-145) mmol/L Chloride (98-107) mmol/L BUN (9-20) mg/dL Glucose (74-99) mg/dL POC Glucose (mg/dL) 129 H 123 H (75-99) mg/dL Calcium (8.4-10.2) mg/dL Ionized Calcium Guille (4.5-5.3) mg/dL Total Protein (6.3-8.2) g/dL Albumin (3.5-5.0) g/dL 10/01/16 10/01/16 10/01/16 Range/Units 05:00 07:29 12:02 RBC (4.30-5.90) m/uL Hgb (13.0-17.5) gm/dL Hct (39.0-53.0) % RDW (11.5-15.5) % Lymphocytes # (1.0-4.8) k/uL Sodium 135 L (137-145) mmol/L Chloride 97 L (98-107) mmol/L BUN 36 H (9-20) mg/dL Glucose 102 H (74-99) mg/dL POC Glucose (mg/dL) 117 H 128 H (75-99) mg/dL Calcium 7.3 L (8.4-10.2) mg/dL Ionized Calcium Guille 4.2 L (4.5-5.3) mg/dL Total Protein 5.2 L (6.3-8.2) g/dL Albumin 2.8 L (3.5-5.0) g/dL Microbiology - Last 24 Hours (Table) 09/27/16 09:33 Anaerobic Culture - Preliminary Lymph Node 09/27/16 09:33 Gram Stain - Preliminary Lymph Node Tissue Culture - Preliminary Assessment and Plan Plan: Assessment 1 status post aortic valve replacement and mitral valve repair, patient is postop day #4. Preoperative disease included severe mitral regurgitation and moderate degree of aortic valve insufficiency. Postop day 4 2 Right paratracheal lymph node that was biopsied at time of surgery and turned out to be consistent with histoplasmosis. 3 postoperative right lower lobe atelectatic segmental changes and small effusions 4 severe mitral regurgitation and aortic valve insufficiency, preoperatively 5 postoperative atrial fibrillation, currently on amiodarone loading per protocol. 6 postoperative anemia with a hemoglobin of 8.9 7 hypothyroidism, post thyroidectomy for thyroid cancer 8 hyperlipidemia 9 hypertension Plan We'll get an infection disease consultation regarding the histoplasma within the lymph nodes. I think this is a contained disease and does not want any antifungal treatment at this point. We'll complete the amiodarone loading and switch the patient to oral amiodarone. We'll need also long-term articulation with warfarin with PD INR monitoring and daily basis. Stop to NovoLog Mix 70/ 30 as the patient's blood sugars under better control. Give the patient milk of magnesia for bowel motility. Continue bronchodilators. We'll continue to follow.
[2016-10-01 16:35] LABS: Glucose,Whole Blood 160 mg/dL (75-99)
[2016-10-01] MEDS ORDERED: WARFARIN 5 MG TAB PO ONE (18:00)
--- NOTE | 2016-10-01 18:02 | P.PN ---
Subjective Principal diagnosis: Status post cardiovascular surgery with aortic and mitral valve replacement This is a 71-year-old male who came in the hospital on September 23 and underwent a JAYDE and heart catheterization showing a ruptured chordae tendonae, mitral regurgitation, moderate pulmonary hypertension, with history of paroxysmal atrial fibrillation and heart failure. 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 He remains in intensive care unit. He has had a left chest tube removed and right chest tube remains in place. He is reaching 750 ML on incentive spirometry. He is not currently on any antibiotics. He has been afebrile. No leukocytosis. He states his shortness of breath is improved now after surgery. He is bringing up significant amount of sputum. He denies any nausea, vomiting, diarrhea. Appetite is somewhat Sitting upright doing relatively well and the chair today. We discussed that the biopsy showed no evidence of any thyroid cancer in the lymph nodes. 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 An antifungal therapy is initiated. Developed atrial fibrillation overnight is now improved today but moved out to selective care. Is definitely feeling better. Objective - Vital Signs Vital signs: Vital Signs Temp 98.4 F 10/01/16 12:00 Pulse 70 10/01/16 12:00 Resp 23 10/01/16 12:00 BP 94/56 10/01/16 12:00 Pulse Ox 95 10/01/16 12:00 Intake & Output 09/30/16 10/01/16 10/01/16 18:59 06:59 18:59 Intake Total 360 830 518 Output Total 2405 1350 800 Balance -2045 -520 -282 Weight 120.3 kg 120.3 kg Intake: Intake, IV Titration 350 518 Amount Amiodarone 450 mg In 200 518 Dextrose 5% in Water 250 ml @ 1 MG/MIN 34.53 mls/ hr IV .[id number] [facility] Rx#: [id number] Dextrose 5% in Water 100 150 ml @ 618 mls/hr IV .Q10M ONE with Amiodarone 150 mg Rx#:[id number] Oral 360 480 Output: Chest Tube Drainage 405 Chest Tube Right Lateral 405 Chest Urine 2000 1350 800 Other: Voiding Method Urinal Urinal Urinal ABP, PAP, CO, CI - Last Documented Arterial Blood Pressure 110/53 Pulmonary Artery Pressure 40/20 Cardiac Output 4.2 Cardiac Index 1.9 - Exam Gen: This is a 71-year-old male. He is sitting in a chair at the bedside and appears to be in no acute distress. Frequent congested cough noted with reaves-colored sputum production. HEENT: Head is atraumatic, normocephalic. Pupils equal, round. Sclerae is anicteric. Conjunctiva slightly pale. Mucous membranes of the mouth are moist. No thrush noted. NECK: Supple. No JVD. No lymphadenopathy. No thyromegaly. LUNGS: Coarse rhonchi. No intercostal retractions. HEART: Regular rate and rhythm. No murmur. Dressing on sternal wound with no breakthrough bleeding or drainage. Right sided pleural chest tube in place. ABDOMEN: Soft. Bowel sounds are present. No masses. No tenderness. EXTREMITIES: +1 bilateral pedal edema. No calf tenderness. SCDs and ORLIN hose in place. NEUROLOGICAL: Patient is awake, alert and oriented x3. - Labs CBC & Chem 7: 10/01/16 05:00 10/01/16 05:00 Labs: Abnormal Lab Results - Last 24 Hours (Table) 09/30/16 09/30/16 10/01/16 Range/Units 18:51 20:46 05:00 RBC 2.69 L (4.30-5.90) m/uL Hgb 8.9 L (13.0-17.5) gm/dL Hct 25.2 L (39.0-53.0) % RDW 16.6 H (11.5-15.5) % Lymphocytes # 0.7 L (1.0-4.8) k/uL Sodium (137-145) mmol/L Chloride (98-107) mmol/L BUN (9-20) mg/dL Glucose (74-99) mg/dL POC Glucose (mg/dL) 129 H 123 H (75-99) mg/dL Calcium (8.4-10.2) mg/dL Ionized Calcium Guille (4.5-5.3) mg/dL Total Protein (6.3-8.2) g/dL Albumin (3.5-5.0) g/dL 10/01/16 10/01/16 10/01/16 Range/Units 05:00 07:29 12:02 RBC (4.30-5.90) m/uL Hgb (13.0-17.5) gm/dL Hct (39.0-53.0) % RDW (11.5-15.5) % Lymphocytes # (1.0-4.8) k/uL Sodium 135 L (137-145) mmol/L Chloride 97 L (98-107) mmol/L BUN 36 H (9-20) mg/dL Glucose 102 H (74-99) mg/dL POC Glucose (mg/dL) 117 H 128 H (75-99) mg/dL Calcium 7.3 L (8.4-10.2) mg/dL Ionized Calcium Guille 4.2 L (4.5-5.3) mg/dL Total Protein 5.2 L (6.3-8.2) g/dL Albumin 2.8 L (3.5-5.0) g/dL 10/01/16 Range/Units 16:31 RBC (4.30-5.90) m/uL Hgb (13.0-17.5) gm/dL Hct (39.0-53.0) % RDW (11.5-15.5) % Lymphocytes # (1.0-4.8) k/uL Sodium (137-145) mmol/L Chloride (98-107) mmol/L BUN (9-20) mg/dL Glucose (74-99) mg/dL POC Glucose (mg/dL) 160 H (75-99) mg/dL Calcium (8.4-10.2) mg/dL Ionized Calcium Guille (4.5-5.3) mg/dL Total Protein (6.3-8.2) g/dL Albumin (3.5-5.0) g/dL Microbiology - Last 24 Hours (Table) 09/27/16 09:33 Gram Stain - Final Lymph Node Tissue Culture - Final 09/27/16 09:33 Anaerobic Culture - Preliminary Lymph Node Laboratory Results WBC 6.6 k/uL (3.8-10.6) 10/01/16 05:00 RBC 2.69 m/uL (4.30-5.90) L 10/01/16 05:00 Hgb 8.9 gm/dL (13.0-17.5) L 10/01/16 05:00 Hct 25.2 % (39.0-53.0) L 10/01/16 05:00 MCV 93.9 fL (80.0-100.0) 10/01/16 05:00 MCH 33.0 pg (25.0-35.0) 10/01/16 05:00 MCHC 35.1 g/dL (31.0-37.0) 10/01/16 05:00 RDW 16.6 % (11.5-15.5) H 10/01/16 05:00 Plt Count 154 k/uL (150-450) 10/01/16 05:00 Neutrophils % 72 % 10/01/16 05:00 Lymphocytes % 11 % 10/01/16 05:00 Monocytes % 6 % 10/01/16 05:00 Eosinophils % 7 % 10/01/16 05:00 Basophils % 1 % 10/01/16 05:00 Neutrophils # 4.8 k/uL (1.3-7.7) 10/01/16 05:00 Lymphocytes # 0.7 k/uL (1.0-4.8) L 10/01/16 05:00 Monocytes # 0.4 k/uL (0-1.0) 10/01/16 05:00 Eosinophils # 0.5 k/uL (0-0.7) 10/01/16 05:00 Basophils # 0.0 k/uL (0-0.2) 10/01/16 05:00 Anisocytosis Slight 10/01/16 05:00 PT 11.4 sec (9.0-12.0) 10/01/16 05:00 INR 1.1 (<1.1) 10/01/16 05:00 APTT 25.9 sec (22.0-30.0) 09/28/16 04:05 Sample Site ROYAL 09/28/16 23:44 O2 Saturation 66.6 % 09/23/16 09:40 ABG Heart Catheter Src RA #2 09/23/16 09:40 ABG pH 7.41 (7.35-7.45) 09/28/16 23:44 ABG pCO2 36 mmHg (35-45) 09/28/16 23:44 ABG pO2 66 mmHg (83-108) L 09/28/16 23:44 ABG HCO3 22 mmol/L (21-25) 09/28/16 23:44 ABG Total CO2 23 mmol/L (19-24) 09/28/16 23:44 ABG O2 Saturation 93.0 % (94-97) L 09/28/16 23:44 ABG Base Excess -1.9 mmol/L 09/28/16 23:44 ABG Hematocrit 30 % (34.0-46.0) L 09/27/16 14:20 ABG Sodium 143 mmol/L (135-146) 09/27/16 14:20 ABG Potassium 4.0 mmol/L (3.4-4.5) 09/27/16 14:20 Hemoglobin 12.2 g/dL 09/23/16 09:40 FiO2 40 % 09/28/16 23:44 Sodium 135 mmol/L (137-145) L 10/01/16 05:00 Potassium 3.6 mmol/L (3.5-5.1) 10/01/16 05:00 Chloride 97 mmol/L (98-107) L 10/01/16 05:00 Carbon Dioxide 29 mmol/L (22-30) 10/01/16 05:00 Anion Gap 9 mmol/L 10/01/16 05:00 BUN 36 mg/dL (9-20) H 10/01/16 05:00 Creatinine 1.10 mg/dL (0.66-1.25) 10/01/16 05:00 Est GFR (MDRD) Af Amer >60 (>60 ml/min/1.73 sqM) 10/01/16 05:00 Est GFR (MDRD) Non-Af >60 (>60 ml/min/1.73 sqM) 10/01/16 05:00 Glucose 102 mg/dL (74-99) H 10/01/16 05:00 POC Glucose (mg/dL) 160 mg/dL (75-99) H 10/01/16 16:31 POC Glu Change Advisor ID Ace Jiang 10/01/16 16:[address] Glu mg/dL 128 mg/dL 09/24/16 05:33 Hemoglobin A1c 6.1 % (4.2-6.1) 09/24/16 05:33 Calcium 7.3 mg/dL (8.4-10.2) L 10/01/16 05:00 Ionized Calcium Guille 4.2 mg/dL (4.5-5.3) L 10/01/16 05:00 Phosphorus 4.5 mg/dL (2.5-4.5) 09/27/16 20:25 Magnesium 2.1 mg/dL (1.6-2.3) 10/01/16 05:00 Total Bilirubin 1.1 mg/dL (0.2-1.3) 10/01/16 05:00 AST 37 U/L (17-59) 10/01/16 05:00 ALT 30 U/L (21-72) 10/01/16 05:00 Alkaline Phosphatase 46 U/L (38-126) 10/01/16 05:00 NT-Pro-B Natriuret Pep 702 pg/mL 09/24/16 05:33 Total Protein 5.2 g/dL (6.3-8.2) L 10/01/16 05:00 Albumin 2.8 g/dL (3.5-5.0) L 10/01/16 05:00 Triglycerides 160 mg/dL (<150) H 09/24/16 05:33 Cholesterol 151 mg/dL (<200) 09/24/16 05:33 LDL Cholesterol, Calc 85 mg/dL (0-99) 09/24/16 05:33 HDL Cholesterol 34 mg/dL (40-60) L 09/24/16 05:33 TSH 23.400 mIU/L (0.465-4.680) H 09/24/16 05:33 Free T4 1.28 ng/dL (0.78-2.19) 09/24/16 05:33 Arterial Blood Potassium 4.0 mmol/L (3.4-4.5) 09/27/16 14:20 Urine Color Light Yellow 09/23/16 18:24 Urine Appearance Clear (Clear) 09/23/16 18:24 Urine pH 6.0 (5.0-8.0) 09/23/16 18:24 Ur Specific [place] 1.011 (1.001-1.035) 09/23/16 18:24 Urine Protein Negative (Negative) 09/23/16 18:24 Urine Glucose (UA) Negative (Negative) 09/23/16 18:24 Urine Ketones Negative (Negative) 09/23/16 18:24 Urine Blood Negative (Negative) 09/23/16 18:24 Urine Nitrite Negative (Negative) 09/23/16 18:24 Urine Bilirubin Negative (Negative) 09/23/16 18:24 Urine Urobilinogen <2.0 mg/dL (<2.0) 09/23/16 18:24 Ur Leukocyte Esterase Negative (Negative) 09/23/16 18:24 Hepatitis A IgM Ab NEGATIVE 09/24/16 05:33 Hep Bs Antigen Negative 09/24/16 05:33 Hep B Core IgM Ab NEGATIVE 09/24/16 05:33 Hep C IgG Ab Negative (Negative) 09/24/16 05:33 Blood Type O Positive 09/26/16 05:56 Blood Type Recheck No 09/26/16 05:56 Antibody Screen NEGATIVE 09/26/16 05:56 Crossmatch See Detail 09/26/16 05:56 Transfuse Plasma 09/27/16 09/27/16 12:44 Transfuse Platelets 09/27/16 09/27/16 12:44 Spec Expiration Date 09/29/2016 09/26/16 05:56 Microbiology 09/27/16 09:33 Lymph Node Gram Stain - Final 09/27/16 09:33 Lymph Node Tissue Culture - Final 09/27/16 09:33 Lymph Node Anaerobic Culture - Preliminary 09/23/16 18:40 Nasal Swab Nasal Screen MRSA/MSSA (QUINTIN) - Final 09/23/16 18:24 Urine,Clean Catch Urine Culture - Final Pathology reviewed showing evidence of fungus consistent with histoplasma in the tissue from the mediastinum lymph nodes Assessment and Plan (1) Congestive heart failure due to valvular disease Status: Acute (2) Atrial fibrillation with RVR Status: Acute (3) Histoplasmosis Narrative/Plan: Is noted this pleasant gentleman has a history of significant valvular heart disease. Also does have a history of thyroid cancer. Recent studies reveal evidence of some increase in the size of the lymph nodes within his mediastinum , comes with the time of his surgery and lymph node biopsies weren't obtained. Fortunately no malignancy was found, however there is evidence of fungal invasion with what appears to be histoplasmosis. For this the infectious diseases consultation was requested. 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 He has lived in [place] and has limited travels, but has been in [place]. We discussed that since his lymph nodes have increased in size and he does have pulmonary symptoms that it is prudent to treat him with itraconazole. His antifungal therapy is usually very well tolerated. Was started 200 mg twice per day. However is now been initiated to amiodarone. With this will reduce the itraconazole dose to 100 mg twice per day. Patient is improved is moving to selective care. Status: Acute
--- NOTE | 2016-10-01 20:14 | PN ---
DATE OF SERVICE: 10/01/2016 This 71-year-old gentleman who was admitted with severe mitral regurgitation as well as moderate regurgitation also had histoplasmosis in the lymph node biopsy. No chest pain. No palpitation. No fever. The most recent chest x-ray showed possibly some atelectasis. On exam, alert and oriented x3. Pulse is 70, blood pressure 94/56, respiration 23, temperature normal, pulse ox 94% on 4 L. HEENT: Conjunctivae normal. NECK: No jugular venous distention. CARDIOVASCULAR SYSTEM: S1, S2 muffled. RESPIRATORY SYSTEM: Breath sounds diminished at the bases. A few scattered rhonchi and crackles. ABDOMEN: Soft, non-tender. LEGS: No edema. No swelling. NERVOUS SYSTEM: No focal deficit. LABS: Hemoglobin 8.9, sodium 135. Accu-Cheks are noted; 128, 116. Albumin is ntd. ASSESSMENT: 1. Severe mitral regurgitation as well as moderate aortic regurgitation, status post aortic valve replacement as well as mitral valve repair. 2. Status post left mediastinal lymphadenopathy after paratracheal lymph node biopsy showing histoplasmosis. 3. History of congestive heart failure. 4. History of atrial fibrillation, paroxysmal. 5. Hyperlipidemia. 6. Increased random blood; possibly diabetes mellitus, type 2. 7. Anemia, possibly dilutional. 8. History of degenerative joint disease. 9. History of hypothyroidism. 10. History of thyroid cancer. 11. Thyroidectomy. 12. History of nicotine dependence. 13. Body mass index of 43.8. 14. History of chronic obstructive pulmonary disease. 15. History of pulmonary nodule, 5.7 cm, in the right middle lobe. 16. Hypoalbuminemia with mild to moderate protein-calorie malnutrition. 17. Increased BUN. 18. Thrombocytopenia. RECOMMENDATIONS AND DISCUSSION: In this 71-year-old gentleman who presented with multiple complex medical issues, we will monitor the patient closely, continue the current medications, continue with symptomatic treatment. Otherwise, at this time I recommend incentive spirometry. Continue Sporanox. Monitor blood sugars closely. Continue the current regimen. Further recommendations to follow. MTDD
[2016-10-01 20:31] LABS: Glucose,Whole Blood 182 mg/dL (75-99)
[2016-10-01] MEDS: ITRACONAZOLE 100 MG CAP PO SCH (21:15)
[2016-10-01] MEDS: METOPROLOL TARTRATE 12.5 MG TAB PO SCH (21:16)
[2016-10-01] MEDS: SENNOSIDES-DOCUSATE SODIUM 1 EACH TAB PO SCH (21:16)
[2016-10-02] MEDS: AMIODARONE 450 MG in DEXTROSE 5% IN WATER 250 ML IV SCH ×2 (00:16)
[2016-10-02] MEDS: HEPARIN SODIUM,PORCINE 5,000 UNIT/ML 1 ML VIAL SQ SCH ×4 (00:20→23:44)
[2016-10-02] MEDS: INSULIN LISPRO (humaLOG) 300 UNIT/3 ML VIAL SQ SCH ×5 (03:19→21:34)
[2016-10-02] MEDS: HYDROcodone/APAP 5-325MG 1 EACH TAB PO PRN ×3 (03:20→21:37)
[2016-10-02 03:23] LABS: Glucose,Whole Blood 111 mg/dL (75-99)
[2016-10-02 06:08] LABS: Glucose,Whole Blood 106 mg/dL (75-99)
[2016-10-02 06:09] LABS: Anisocytosis Slight; CHCM 32.8; HCT 26.1 % (39.0-53.0); HDW 2.91; HGB 8.5 gm/dL (13.0-17.5); MCHC 32.6 g/dL (31.0-37.0); MCV 95.2 fL (80.0-100.0); Mean Platelet Volume 7.7; RBC 2.75 m/uL (4.30-5.90); RDW 17.1 % (11.5-15.5); WBC 7.3 k/uL (3.8-10.6)
[2016-10-02 06:17] LABS: INR 1.2 (<1.1); Prothrombin Time 11.9 sec (9.0-12.0)
[2016-10-02 06:41] LABS: ALT 43 U/L (21-72); AST 43 U/L (17-59); Alkaline Phosphatase 60 U/L (38-126); Anion Gap 9 mmol/L; Blood Urea Nitrogen 33 mg/dL (9-20); Carbon Dioxide 31 mmol/L (22-30); Chloride 96 mmol/L (98-107); Glucose 105 mg/dL (74-99); Non-African American GFR(MDRD) >60 (>60 ml/min/1.73 sqM); Sodium 136 mmol/L (137-145); Total Bilirubin 1.1 mg/dL (0.2-1.3); Total Protein 5.4 g/dL (6.3-8.2)
[2016-10-02] MEDS: FUROSEMIDE 10 MG/ML 4 ML VIAL IV SCH (06:43)
[2016-10-02] MEDS: LEVOTHYROXINE 75 MCG TAB PO SCH (06:43)
[2016-10-02] MEDS: PANTOPRAZOLE 40 MG TABLET PO SCH (06:43)
[2016-10-02 06:56] LABS: Potassium 3.7 mmol/L (3.5-5.1)
--- NOTE | 2016-10-02 07:20 | XR ---
EXAMINATION TYPE: XR chest 2V DATE OF EXAM: 10/02/2016 6:21 AM COMPARISON: 10/01/2016 HISTORY: 71-year-old male postop CABG TECHNIQUE: Frontal and lateral views FINDINGS: Postsurgical changes with median sternotomy wires and post-CABG clips in the mediastinum. Diffuse int erstitial prominence is stable. Some subtle Cuca B lines are seen at the peripheral right base. Sma ll bilateral pleural effusions persist with adjacent patchy opacity. Heart remains borderline enlarge d. Degenerative changes of both shoulders. IMPRESSION: 1. Relatively stable exam suggesting CHF with pulmonary vascular congestion/mild interstitial edema 2. Small bilateral pleural effusions with adjacent atelectasis and/or consolidation, also unchanged.
[2016-10-02] MEDS ORDERED: DEXTROSE 5% IN WATER 100 ML with AMIODARONE 150 MG IV ONE (07:30)
[2016-10-02] MEDS: AMIODARONE 200 MG TAB PO SCH ×3 (07:48→23:44)
[2016-10-02] MEDS: METOPROLOL TARTRATE 12.5 MG TAB PO SCH ×2 (08:33→21:36)
[2016-10-02] MEDS: ASPIRIN 325 MG TAB PO SCH (08:33)
[2016-10-02] MEDS: ITRACONAZOLE 100 MG CAP PO SCH ×2 (08:34→21:36)
[2016-10-02] MEDS ORDERED: Potassium Replacement Protocol 1 EACH MISC MISCELLANE PRN (09:55)
--- NOTE | 2016-10-02 10:33 | P.PN ---
<Orion Quiroz L - Last Filed: 10/02/16 10:32> Progress Note - Text CV Surgery Nursing Principal diagnosis: Severe mitral regurgitation, moderate aortic valve insufficiency, congestive heart failure, history of paroxysmal atrial fibrillation, hypothyroidism, post thyroidectomy for thyroid cancer, hypertension, and hyperlipidemia. POD #5 aortic valve replacement using a #27 mm Espinal bovine pericardial valve , mitral valve repair using a 30 mm minimal 3-D ring, left atrial appendage exclusion using a 35 mm Atriclip, Frederick maze procedure, intraoperative transesophageal echocardiogram, mediastinal lymph node biopsy. Patient awake and alert, no distress noted, no specific complaints, he is sitting up to the bedside chair this time. 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 ] Respiratory 23 Rate Blood Pressure 94/56 Blood Pressure [Left Arm Supine] Blood Pressure [Left Arm] O2 Sat by Pulse 95 Oximetry 10/01/16 10/01/16 10/02/16 16:00 20:30 00:00 Temperature 97.2 F L 98.9 F 97.3 F L Pulse Rate Pulse Rate [ 75 73 60 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 ] Respiratory 18 18 18 Rate Blood Pressure Blood Pressure 114/57 102/63 105/56 [Left Arm Supine] Blood Pressure [Left Arm] O2 Sat by Pulse 95 95 95 Oximetry 10/02/16 10/02/16 10/02/16 04:00 07:50 09:02 Temperature 97.3 F L 98.3 F Pulse Rate Pulse Rate [ 64 122 H 71 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 ] Respiratory 18 18 18 Rate Blood Pressure Blood Pressure 101/58 [Left Arm Supine] Blood Pressure 101/62 101/59 [Left Arm] O2 Sat by Pulse 95 95 95 Oximetry Labs: Short CBC 10/02/16 Range/Units 05:33 WBC 7.3 (3.8-10.6) k/uL Hgb 8.5 L (13.0-17.5) gm/dL Hct 26.1 L (39.0-53.0) % Plt Count 208 (150-450) k/uL BMP 10/02/16 05:33 Sodium 136 L Potassium 3.7 Chloride 96 L Carbon Dioxide 31 H BUN 33 H Creatinine 1.00 Glucose 105 H Calcium 7.0 L Liver Function 10/02/16 Range/Units 05:33 Total Bilirubin 1.1 (0.2-1.3) mg/dL AST 43 (17-59) U/L ALT 43 (21-72) U/L Alkaline Phosphatase 60 (38-126) U/L Albumin 2.9 L (3.5-5.0) g/dL ABG ABG pH 7.41 (7.35-7.45) 09/28/16 23:44 ABG pCO2 36 mmHg (35-45) 09/28/16 23:44 ABG pO2 66 mmHg (83-108) L 09/28/16 23:44 ABG O2 Saturation 93.0 % (94-97) L 09/28/16 23:44 PT/INR, D-dimer PT 11.9 sec (9.0-12.0) 10/02/16 05:33 INR 1.2 (<1.1) 10/02/16 05:33 The patient received Coumadin 5 mg by mouth on 09/30/2016 and on 10/01/2016. Microbiology 09/27/16 09:33 Lymph Node Gram Stain - Final 09/27/16 09:33 Lymph Node Tissue Culture - Final 09/27/16 09:33 Lymph Node Anaerobic Culture - Preliminary 09/23/16 18:40 Nasal Swab Nasal Screen MRSA/MSSA (QUINTIN) - Final 09/23/16 18:24 Urine,Clean Catch Urine Culture - Final Pathology: . Specimens: A. Soft Tissue - Thymus B. Lymph Node, Biopsy - Right Paratracheal C. Heart Valve - Portion Posterior Metral Valve D. Heart Valve - Aortic Valve RIGHT PARATRACHEAL LYMPH NODES: FEATURES CONSISTENT WITH HISTOPLASMOSIS. B. RIGHT PARATRACHEAL LYMPH NODES: BENIGN LYMPH NODES WITH CASEATING GRANULOMAS , PROMINENT SINUS HISTIOCYTOSIS AND ANTHRACOTIC PIGMENT. SEE NOTE. C. POSTERIOR LEAFLET MITRAL VALVE: THICKENED HEART VALVE LEAFLET WITH FIBROMYXOID DEGENERATIVE CHANGES. D. AORTIC VALVE: FOCALLY THICKENED HEART VALVE TISSUE WITH FIBROMYXOID DEGENERATIVE CHANGES. Notes The features in part B could represent infectious etiology versus idiopathic. Given the findings, special stains for organisms will be performed on block B1 and an addendum will follow. Lungs: Coarse rhonchi throughout, diminished bilateral bases. Respirations are unlabored. Patient does have a productive cough, he is producing tenacious dark reavse sputum. O2 sat: 95% on 4 L nasal cannula. I/S: 750 mL, reviewed with patient importance of using his incentive spirometry every hour while awake. Patient did give a good return demonstration on his incentive spirometry. Heart: S1S2, irregular rhythm with controlled rate. Remote telemetry showing atrial fibrillation heart rate 110. Sternum stable, chest incision clean with silverlon dressing clean and dry. Heart hugger in place, the patient is demonstrating proper use on his heart hugger. Abdomen: Soft, Positive hypoactive bowel sounds present in all 4 quadrants. Patient states he has not had a bowel movement since surgery. CBGs: 106-182 mg/dL in the last 24 hours. U/O: Adequate. 24 hr Total: Intake & Output 09/30/16 10/01/16 10/02/16 10/03/16 06:59 06:59 06:59 06:59 Intake Total 381 1190 518 Output Total 2525 3755 1200 450 Balance -2144 -2565 -682 -450 Weight 122.4 kg 120.3 kg 116.5 kg Active Medications Hydrocodone Bitart/Acetaminophen ([place] 5-325) 2 each PO Q4HR PRN PRN Reason: Severe Pain Last Admin: 10/02/16 03:20 Dose: 2 each Hydrocodone Bitart/Acetaminophen ([place] 5-325) 1 each PO Q4HR PRN PRN Reason: Moderate Pain Last Admin: 09/30/16 04:54 Dose: 1 each Albuterol/Ipratropium (Duoneb 0.5 Mg-3 Mg/3 Ml Soln) 3 ml INHALATION RT-Q2H PRN PRN Reason: Shortness Of Breath Or Wheezing Last Admin: 10/01/16 11:20 Dose: 3 ml Amiodarone HCl (Cordarone) 400 mg PO Q8HR [facility] Last Admin: 10/02/16 07:48 Dose: 400 mg Aspirin (Aspirin) 325 mg PO DAILY [facility] Last Admin: 10/02/16 08:33 Dose: 325 mg Benzocaine/Menthol (Cepacol Lozenge) 1 each MUCOUS MEM Q4HR PRN PRN Reason: sore throat Bisacodyl (Dulcolax) 10 mg RECTAL DAILY PRN PRN Reason: Constipation Furosemide (Lasix) 40 mg IV Q12H [facility] Last Admin: 10/02/16 06:43 Dose: 40 mg Heparin Sodium (Porcine) (Heparin) 5,000 unit SQ Q8HR [facility] Last Admin: 10/02/16 08:33 Dose: 5,000 unit Insulin Human Lispro (Humalog) 0 unit SQ [id number] [facility] PRN Reason: Protocol Last Admin: 10/02/16 06:43 Dose: Not Given Itraconazole (Sporanox) 100 mg PO BID [facility] Last Admin: 10/02/16 08:34 Dose: 100 mg Levothyroxine Sodium (Synthroid) 150 mcg PO DAILY@0630 [facility] Last Admin: 10/02/16 06:43 Dose: 150 mcg Magnesium Hydroxide (Milk Of Magnesia) 2,400 mg PO BID PRN PRN Reason: Constipation Last Admin: 10/01/16 12:15 Dose: 2,400 mg Metoprolol Tartrate (Lopressor) 12.5 mg PO BID [facility] Last Admin: 10/02/16 08:33 Dose: 12.5 mg Miscellaneous Information (Magnesium Per Protocol) 1 each MISCELLANE DAILY PRN ; Protocol PRN Reason: Per Protocol Miscellaneous Information (Phosphorus Per Protocol) 1 each MISCELLANE DAILY PRN ; Protocol PRN Reason: Per Protocol Miscellaneous Information (Potassium Per Protocol) 1 each MISCELLANE DAILY PRN ; Protocol PRN Reason: Per Protocol Miscellaneous Information (Potassium Per Protocol) 1 each MISCELLANE DAILY PRN ; Protocol PRN Reason: Per Protocol Multivitamins (Theragran) 1 each PO DAILY@1200 [facility] Last Admin: 10/01/16 12:10 Dose: 1 each Ondansetron HCl (Zofran) 4 mg IVP Q6HR PRN PRN Reason: Nausea And Vomiting Pantoprazole Sodium (Protonix) 40 mg PO AC-[id number] [facility] Last Admin: 10/02/16 06:43 Dose: 40 mg Potassium Chloride (K-Dur 20) 20 meq PO Q1HR [facility] Stop: 10/02/16 10:01 Senna/Docusate Sodium (Senokot-S) 2 each PO HS [facility] Last Admin: 10/01/16 21:16 Dose: 2 each Sodium Chloride (Saline Flush) 10 ml IV BID [facility] Last Admin: 10/02/16 08:34 Dose: 10 ml Warfarin Sodium (Coumadin) 7.5 mg PO ONCE@1800 ONE Stop: 10/02/16 18:01 Plan: 1. Continue aspirin, Lopressor. Lipitor stopped by Dr. Ramos presumably due to drug interaction with Itraconazole. 2. Encourage incentive spirometry use q one hour while awake. 3. Continue oral amiodarone for his atrial fibrillation. 4. Encourage increased mobility. Out of bed to chair with ambulation in the hallway. Physical therapy to follow. 5. GI/DVT prophylaxis. 6. Diabetic management and insulin per primary service. 7. Coumadin 7.5 mg by mouth today for an INR of 1.2. 8. Potassium replacement per protocol. 9. Lasix will be switched to 40 mg by mouth every 12 hours. <Brant Crawford - Last Filed: 10/02/16 11:34> Progress Note - Text The patient was seen and examined. I agree with the above assessment and plan. Overall the patient appears to be doing well. He did have a short run of atrial fibrillation early this morning which was treated with IV amiodarone and adjustment of his oral dose. He does not appear to have much room to increase his beta ismael. He is currently in normal sinus rhythm. He is down to 2 L of nasal cannula oxygen. Encourage incentive spirometry and ambulation. His INR this morning is 1.2. We will administer 7.5 mg of Coumadin tonight. Lasix was switched to oral dosing. He will likely be stable for discharge within the next few days.
[2016-10-02] MEDS: MAGNESIUM HYDROXIDE 2,400 MG/10 ML CUP PO PRN (10:35)
[2016-10-02] MEDS: MULTIVITAMINS, THERA 1 EACH TAB PO SCH (11:50)
[2016-10-02] MEDS ORDERED: POTASSIUM CHLORIDE ER 20 MEQ TAB.ER PO SCH (12:00)
[2016-10-02 12:10] LABS: Glucose,Whole Blood 113 mg/dL (75-99)
--- NOTE | 2016-10-02 13:20 | P.PN ---
Subjective 71-year-old male patient underwent aortic valve replacement and mitral valve repair. Patient is postop day #0. I saw this patient immediately after he arrived to the intensive care unit. The patient was still quite sedated and he was intubated on a mechanical ventilator. I reviewed the initial postsurgical chest x-ray which showed some atelectatic changes within the right lower lobe. ET tube was in a good location. The patient's chest tube were all in good location. Initial blood gases showed a pH of 7.28 with a pCO2 of 56 and pO2 of 220 and based on that the patient was placed on a tidal volume of 700 with a rate of 12. Currently he is on IA PEEP of 10 and FiO2 of 60%. Subsequent blood gases showed a pH of 7.36 with a pCO2 of 44 and pO2 of 53. The patient has 2 mediastinal chest tubes, and right pleural and the left pleural chest tube. The cardiac output of this point is at 6.6 with an index of 2.24. The CVP is at 19. The mean pulmonary artery pressure is 19. The patient is currently on no pressors. most recent mean arterial pressure is at 18 the patient is producing adequate amount of urine output. The patient artery received a total of 5 doses of 12.5 g of albumin. The patient is seen again today 09/28/2016 in follow-up in the intensive care unit. This is postoperative day #1. He is seen sitting up in the chair at the bedside. He denies any worsening shortness of breath, cough or congestion. He is pulling approximate 750 MLS on the incentive spirometer. He is on 5 L/ m per nasal cannula to maintain O2 saturations in the 90s. His chest x-ray shows continued atelectatic changes in the lung bases. He is maintaining regular sinus rhythm. He is off his drips other than insulin. His mediastinal and pleural chest tubes remain in place. The Clyo-Galilea was removed today. He has remained hemodynamically stable. On 09/29/2016 the patient is postop day #2. The patient is having some increased rhonchi and rest or secretions which she is unable to cough out. Today's chest x-ray shows atelectatic changes in the right lower lungs appear segment and some small bilateral pleural effusions. The patient was already given a dose of Lasix and he diuresed significantly in order of 1 L overall diuresis since he was given Lasix. His still has all of these chest tubes in place. The mediastinal chest tubes are been already removed. The patient's left pleural chest tube will be also pulled out today. He is hemodynamically stable. He is still on 4.5 units of insulin drip for blood sugar control and this will be switched with a 3. insulin scale utilizing NPH and ascites scale coverage. The patient has adequate pain control. Adequate urine output. Adequate mentation. Pulling up somewhat between 500-750 on his incentive spirometer. Hemoglobin was stable at 7.9. The cardiac rhythm is remains sinus and there may be some plans to put him on anticoagulation at a later stage. Cardiology is also on the case. On 09/30/2016 patient is postop day #3. The patient is doing very well. The patient is sitting up on a chair. There are small lung volumes and today's chest x-ray with some atelectatic changes small effusion in the right lung base. The patient is still has a right-sided chest tube. No chest pain. No drainage from the right-sided chest tube is limited and the patient will likely have his chest tube removed today. He has been switched to insulin long-acting and his blood pressure is under good control. He is hemodynamically stable. No other significant events over the past 24 hours. On 10/01/2016 the patient is postop day #4. He is doing well. No specific complaints. All of the chest tubes have been removed. Chest x-ray shows small lung volumes and atelectatic changes and small effusion the lung bases. Abdomen slightly distended. He has adequate bowel sounds. He will be given milk of magnesia for bowel motility. Overnight the patient went into atrial fibrillation with rapid ventricular response. The patient was placed on amiodarone per protocol. Currently is on amiodarone maintenance and his cardiac rhythm is in sinus although his having episodes of paroxysmal atrial fibrillation with a controlled rate. He was started also on warfarin regarding long-term anticoagulation. The patient is seen again today 10/02/2016 in follow-up. Postoperative day #5. He is sitting up in the chair at the bedside. He is awake and alert in no acute distress. Today's chest x-ray continues to show some pulmonary vascular congestion and mild interstitial edema. There are small bilateral pleural effusions. He is pulling approximately 1500 miles on his incentive spirometer. Intake and good O2 saturations in the 90s on 2 L/m per nasal cannula. He is afebrile. The global remains stable at 8.5. Currently in a sinus rhythm. He remains on amiodarone and warfarin. Objective - Vital Signs Vital signs: Vital Signs Temp 97.5 F L 10/02/16 11:42 Pulse 69 10/02/16 11:42 Resp 18 10/02/16 11:42 BP 97/57 10/02/16 11:42 Pulse Ox 93 L 10/02/16 11:42 Intake & Output 10/01/16 10/02/16 10/02/16 18:59 06:59 18:59 Intake Total 518 Output Total 800 400 850 Balance -282 -400 -850 Weight 120.3 kg 116.5 kg Intake: Intake, IV Titration 518 Amount Amiodarone 450 mg In 518 Dextrose 5% in Water 250 ml @ 1 MG/MIN 34.53 mls/ hr IV .Q7H31M [facility] Rx#: [id number] Output: Urine 800 400 850 Other: Voiding Method Urinal Urinal Urinal # Bowel Movements 0 ABP, PAP, CO, CI - Last Documented Arterial Blood Pressure 110/53 Pulmonary Artery Pressure 40/20 Cardiac Output 4.2 Cardiac Index 1.9 - Exam GENERAL EXAM: Alert, comfortable in no apparent distress. HEAD: Normocephalic. EYES: Normal reaction of pupils, equal size. NOSE: Clear with pink turbinates. THROAT: No erythema or exudates. NECK: No masses, no JVD. CHEST: No chest wall deformity. Sternal dressing is dry and intact. LUNGS: Equal air entry with crackles in the posterior bases. Diminished. CVS: S1 and S2 normal with no audible murmurs, regular rhythm. ABDOMEN: No hepatosplenomegaly, normal bowel sounds, no guarding or rigidity. SPINE: No scoliosis or deformity SKIN: No rashes CENTRAL NERVOUS SYSTEM: No focal deficits, tone is normal in all 4 extremities. Extremities: Bilateral Kieran wraps in place. Sequential compression devices in place. Peripheral pulses are intact. - Labs CBC & Chem 7: 10/02/16 05:33 10/02/16 05:33 Labs: Abnormal Lab Results - Last 24 Hours (Table) 10/01/16 10/01/16 10/02/16 Range/Units 16:31 20:26 03:03 RBC (4.30-5.90) m/uL Hgb (13.0-17.5) gm/dL Hct (39.0-53.0) % RDW (11.5-15.5) % Sodium (137-145) mmol/L Chloride (98-107) mmol/L Carbon Dioxide (22-30) mmol/L BUN (9-20) mg/dL Glucose (74-99) mg/dL POC Glucose (mg/dL) 160 H 182 H 111 H (75-99) mg/dL Calcium (8.4-10.2) mg/dL Total Protein (6.3-8.2) g/dL Albumin (3.5-5.0) g/dL 10/02/16 10/02/16 10/02/16 Range/Units 05:33 05:33 06:06 RBC 2.75 L (4.30-5.90) m/uL Hgb 8.5 L (13.0-17.5) gm/dL Hct 26.1 L (39.0-53.0) % RDW 17.1 H (11.5-15.5) % Sodium 136 L (137-145) mmol/L Chloride 96 L (98-107) mmol/L Carbon Dioxide 31 H (22-30) mmol/L BUN 33 H (9-20) mg/dL Glucose 105 H (74-99) mg/dL POC Glucose (mg/dL) 106 H (75-99) mg/dL Calcium 7.0 L (8.4-10.2) mg/dL Total Protein 5.4 L (6.3-8.2) g/dL Albumin 2.9 L (3.5-5.0) g/dL 10/02/16 Range/Units 12:01 RBC (4.30-5.90) m/uL Hgb (13.0-17.5) gm/dL Hct (39.0-53.0) % RDW (11.5-15.5) % Sodium (137-145) mmol/L Chloride (98-107) mmol/L Carbon Dioxide (22-30) mmol/L BUN (9-20) mg/dL Glucose (74-99) mg/dL POC Glucose (mg/dL) 113 H (75-99) mg/dL Calcium (8.4-10.2) mg/dL Total Protein (6.3-8.2) g/dL Albumin (3.5-5.0) g/dL Microbiology - Last 24 Hours (Table) 09/27/16 09:33 Anaerobic Culture - Final Lymph Node 09/27/16 09:33 Gram Stain - Final Lymph Node Tissue Culture - Final Assessment and Plan Plan: Impression: #1 Dyspnea secondary to moderate to severe mitral insufficiency as well as severe aortic stenosis. He is status post aortic valve replacement and mitral valve repair. This is postoperative day #5. #2 Postoperative right lower lobe atelectatic segmental changes. #3 Hypertension. #4 Hypothyroidism. #5 Hyperlipidemia. #6 History of thyroid cancer status post thyroidectomy. #7 History of smoking nearly 3 packs per day for 20 years but did quit back in 1979. He did smoke cigars on and off from [id number]. #8 Paroxysmal atrial fibrillation, currently in normal sinus rhythm. Currently on amiodarone and warfarin. INR 1.2. Plan: The patient was seen and evaluated by Dr. Albert. His chest x-ray and labs were reviewed. We have again encouraged the increased use of the incentive spirometer and cough and deep breathing exercises. He remains on heparin for DVT prophylaxis. We'll increase his activity as tolerated. We'll repeat his chest x-ray and labs in the a.m. We'll continue to follow.
[2016-10-02] MEDS: FUROSEMIDE 40 MG TAB PO SCH (15:51)
[2016-10-02 16:49] LABS: Glucose,Whole Blood 184 mg/dL (75-99)
--- NOTE | 2016-10-02 16:57 | PN ---
This gentleman is status post aortic valve replacement, mitral valve repair, and a Maze procedure. He is in sinus rhythm, but has short bursts of intermittent atrial fibrillation. He is on amiodarone and beta ismael. In sinus today doing well a day. He is doing better with incentive spirometry. Blood pressure 130/70, pulse rate 70 per minute. There is no JVD. S1, S2 heard normally. Short systolic murmur noted. Lungs reveal improved air entry. Abdomen and lower extremity exam unchanged. Plan is to continue incentive spirometry, pulmonary toilet and continue current medications.
--- NOTE | 2016-10-02 17:44 | P.PN ---
Subjective Principal diagnosis: Status post cardiovascular surgery with aortic and mitral valve replacement This is a 71-year-old male who came in the hospital on September 23 and underwent a JAYDE and heart catheterization showing a ruptured chordae tendonae, mitral regurgitation, moderate pulmonary hypertension, with history of paroxysmal atrial fibrillation and heart failure. 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 He remains in intensive care unit. He has had a left chest tube removed and right chest tube remains in place. He is reaching 750 ML on incentive spirometry. He is not currently on any antibiotics. He has been afebrile. No leukocytosis. He states his shortness of breath is improved now after surgery. He is bringing up significant amount of sputum. He denies any nausea, vomiting, diarrhea. Appetite is somewhat Sitting upright doing relatively well and the chair today. We discussed that the biopsy showed no evidence of any thyroid cancer in the lymph nodes. 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 An antifungal therapy is initiated. Developed further atrial fibrillation overnight is now improved today but moved out to selective care. Is definitely feeling better. Objective - Vital Signs Vital signs: Vital Signs Temp 97.5 F L 10/02/16 15:46 Pulse 105 H 10/02/16 16:52 Resp 18 10/02/16 15:46 BP 108/57 10/02/16 16:52 Pulse Ox 94 L 10/02/16 17:01 Intake & Output 10/01/16 10/02/16 10/02/16 18:59 06:59 18:59 Intake Total 518 480 Output Total 800 400 950 Balance -282 -400 -470 Weight 120.3 kg 116.5 kg Intake: Intake, IV Titration 518 Amount Amiodarone 450 mg In 518 Dextrose 5% in Water 250 ml @ 1 MG/MIN 34.53 mls/ hr IV .Q7H31M [facility] Rx#: [id number] Oral 480 Output: Urine 800 400 950 Other: Voiding Method Urinal Urinal Urinal # Bowel Movements 0 ABP, PAP, CO, CI - Last Documented Arterial Blood Pressure 110/53 Pulmonary Artery Pressure 40/20 Cardiac Output 4.2 Cardiac Index 1.9 - Exam Gen: This is a 71-year-old male. He is sitting in a chair at the bedside and appears to be in no acute distress. Frequent congested cough noted with reaves-colored sputum production. HEENT: Head is atraumatic, normocephalic. Pupils equal, round. Sclerae is anicteric. Conjunctiva slightly pale. Mucous membranes of the mouth are moist. No thrush noted. NECK: Supple. No JVD. No lymphadenopathy. No thyromegaly. LUNGS: Coarse rhonchi. No intercostal retractions. HEART: Regular rate and rhythm. No murmur. Dressing on sternal wound with no breakthrough bleeding or drainage. Right sided pleural chest tube in place. ABDOMEN: Soft. Bowel sounds are present. No masses. No tenderness. EXTREMITIES: +1 bilateral pedal edema. No calf tenderness. SCDs and ORLIN hose in place. NEUROLOGICAL: Patient is awake, alert and oriented x3. - Labs CBC & Chem 7: 10/02/16 05:33 10/02/16 05:33 Labs: Abnormal Lab Results - Last 24 Hours (Table) 10/01/16 10/02/16 10/02/16 Range/Units 20:26 03:03 05:33 RBC 2.75 L (4.30-5.90) m/uL Hgb 8.5 L (13.0-17.5) gm/dL Hct 26.1 L (39.0-53.0) % RDW 17.1 H (11.5-15.5) % Sodium (137-145) mmol/L Chloride (98-107) mmol/L Carbon Dioxide (22-30) mmol/L BUN (9-20) mg/dL Glucose (74-99) mg/dL POC Glucose (mg/dL) 182 H 111 H (75-99) mg/dL Calcium (8.4-10.2) mg/dL Total Protein (6.3-8.2) g/dL Albumin (3.5-5.0) g/dL 10/02/16 10/02/16 10/02/16 Range/Units 05:33 06:06 12:01 RBC (4.30-5.90) m/uL Hgb (13.0-17.5) gm/dL Hct (39.0-53.0) % RDW (11.5-15.5) % Sodium 136 L (137-145) mmol/L Chloride 96 L (98-107) mmol/L Carbon Dioxide 31 H (22-30) mmol/L BUN 33 H (9-20) mg/dL Glucose 105 H (74-99) mg/dL POC Glucose (mg/dL) 106 H 113 H (75-99) mg/dL Calcium 7.0 L (8.4-10.2) mg/dL Total Protein 5.4 L (6.3-8.2) g/dL Albumin 2.9 L (3.5-5.0) g/dL 10/02/16 Range/Units 16:38 RBC (4.30-5.90) m/uL Hgb (13.0-17.5) gm/dL Hct (39.0-53.0) % RDW (11.5-15.5) % Sodium (137-145) mmol/L Chloride (98-107) mmol/L Carbon Dioxide (22-30) mmol/L BUN (9-20) mg/dL Glucose (74-99) mg/dL POC Glucose (mg/dL) 184 H (75-99) mg/dL Calcium (8.4-10.2) mg/dL Total Protein (6.3-8.2) g/dL Albumin (3.5-5.0) g/dL Microbiology - Last 24 Hours (Table) 09/27/16 09:33 Anaerobic Culture - Final Lymph Node 09/27/16 09:33 Gram Stain - Final Lymph Node Tissue Culture - Final Laboratory Results WBC 7.3 k/uL (3.8-10.6) 10/02/16 05:33 RBC 2.75 m/uL (4.30-5.90) L 10/02/16 05:33 Hgb 8.5 gm/dL (13.0-17.5) L 10/02/16 05:33 Hct 26.1 % (39.0-53.0) L 10/02/16 05:33 MCV 95.2 fL (80.0-100.0) 10/02/16 05:33 MCH 31.0 pg (25.0-35.0) 10/02/16 05:33 MCHC 32.6 g/dL (31.0-37.0) 10/02/16 05:33 RDW 17.1 % (11.5-15.5) H 10/02/16 05:33 Plt Count 208 k/uL (150-450) 10/02/16 05:33 Neutrophils % 72 % 10/01/16 05:00 Lymphocytes % 11 % 10/01/16 05:00 Monocytes % 6 % 10/01/16 05:00 Eosinophils % 7 % 10/01/16 05:00 Basophils % 1 % 10/01/16 05:00 Neutrophils # 4.8 k/uL (1.3-7.7) 10/01/16 05:00 Lymphocytes # 0.7 k/uL (1.0-4.8) L 10/01/16 05:00 Monocytes # 0.4 k/uL (0-1.0) 10/01/16 05:00 Eosinophils # 0.5 k/uL (0-0.7) 10/01/16 05:00 Basophils # 0.0 k/uL (0-0.2) 10/01/16 05:00 Anisocytosis Slight 10/02/16 05:33 PT 11.9 sec (9.0-12.0) 10/02/16 05:33 INR 1.2 (<1.1) 10/02/16 05:33 APTT 25.9 sec (22.0-30.0) 09/28/16 04:05 Sample Site [place] 09/28/16 23:44 O2 Saturation 66.6 % 09/23/16 09:40 ABG Heart Catheter Src RA #2 09/23/16 09:40 ABG pH 7.41 (7.35-7.45) 09/28/16 23:44 ABG pCO2 36 mmHg (35-45) 09/28/16 23:44 ABG pO2 66 mmHg (83-108) L 09/28/16 23:44 ABG HCO3 22 mmol/L (21-25) 09/28/16 23:44 ABG Total CO2 23 mmol/L (19-24) 09/28/16 23:44 ABG O2 Saturation 93.0 % (94-97) L 09/28/16 23:44 ABG Base Excess -1.9 mmol/L 09/28/16 23:44 ABG Hematocrit 30 % (34.0-46.0) L 09/27/16 14:20 ABG Sodium 143 mmol/L (135-146) 09/27/16 14:20 ABG Potassium 4.0 mmol/L (3.4-4.5) 09/27/16 14:20 Hemoglobin 12.2 g/dL 09/23/16 09:40 FiO2 40 % 09/28/16 23:44 Sodium 136 mmol/L (137-145) L 10/02/16 05:33 Potassium 3.7 mmol/L (3.5-5.1) 10/02/16 05:33 Chloride 96 mmol/L (98-107) L 10/02/16 05:33 Carbon Dioxide 31 mmol/L (22-30) H 10/02/16 05:33 Anion Gap 9 mmol/L 10/02/16 05:33 BUN 33 mg/dL (9-20) H 10/02/16 05:33 Creatinine 1.00 mg/dL (0.66-1.25) 10/02/16 05:33 Est GFR (MDRD) Af Amer >60 (>60 ml/min/1.73 sqM) 10/02/16 05:33 Est GFR (MDRD) Non-Af >60 (>60 ml/min/1.73 sqM) 10/02/16 05:33 Glucose 105 mg/dL (74-99) H 10/02/16 05:33 POC Glucose (mg/dL) 184 mg/dL (75-99) H 10/02/16 16:38 POC Glu Otr Driver Jenna Estrella 10/02/16 16:[address] Glu mg/dL 128 mg/dL 09/24/16 05:33 Hemoglobin A1c 6.1 % (4.2-6.1) 09/24/16 05:33 Calcium 7.0 mg/dL (8.4-10.2) L 10/02/16 05:33 Ionized Calcium Guille 4.2 mg/dL (4.5-5.3) L 10/01/16 05:00 Phosphorus 4.5 mg/dL (2.5-4.5) 09/27/16 20:25 Magnesium 2.3 mg/dL (1.6-2.3) 10/02/16 05:33 Total Bilirubin 1.1 mg/dL (0.2-1.3) 10/02/16 05:33 AST 43 U/L (17-59) 10/02/16 05:33 ALT 43 U/L (21-72) 10/02/16 05:33 Alkaline Phosphatase 60 U/L (38-126) 10/02/16 05:33 NT-Pro-B Natriuret Pep 702 pg/mL 09/24/16 05:33 Total Protein 5.4 g/dL (6.3-8.2) L 10/02/16 05:33 Albumin 2.9 g/dL (3.5-5.0) L 10/02/16 05:33 Triglycerides 160 mg/dL (<150) H 09/24/16 05:33 Cholesterol 151 mg/dL (<200) 09/24/16 05:33 LDL Cholesterol, Calc 85 mg/dL (0-99) 09/24/16 05:33 HDL Cholesterol 34 mg/dL (40-60) L 09/24/16 05:33 TSH 23.400 mIU/L (0.465-4.680) H 09/24/16 05:33 Free T4 1.28 ng/dL (0.78-2.19) 09/24/16 05:33 Arterial Blood Potassium 4.0 mmol/L (3.4-4.5) 09/27/16 14:20 Urine Color Light Yellow 09/23/16 18:24 Urine Appearance Clear (Clear) 09/23/16 18:24 Urine pH 6.0 (5.0-8.0) 09/23/16 18:24 Ur Specific [place] 1.011 (1.001-1.035) 09/23/16 18:24 Urine Protein Negative (Negative) 09/23/16 18:24 Urine Glucose (UA) Negative (Negative) 09/23/16 18:24 Urine Ketones Negative (Negative) 09/23/16 18:24 Urine Blood Negative (Negative) 09/23/16 18:24 Urine Nitrite Negative (Negative) 09/23/16 18:24 Urine Bilirubin Negative (Negative) 09/23/16 18:24 Urine Urobilinogen <2.0 mg/dL (<2.0) 09/23/16 18:24 Ur Leukocyte Esterase Negative (Negative) 09/23/16 18:24 Hepatitis A IgM Ab NEGATIVE 09/24/16 05:33 Hep Bs Antigen Negative 09/24/16 05:33 Hep B Core IgM Ab NEGATIVE 09/24/16 05:33 Hep C IgG Ab Negative (Negative) 09/24/16 05:33 Blood Type O Positive 09/26/16 05:56 Blood Type Recheck No 09/26/16 05:56 Antibody Screen NEGATIVE 09/26/16 05:56 Crossmatch See Detail 09/26/16 05:56 Transfuse Plasma 09/27/16 09/27/16 12:44 Transfuse Platelets 09/27/16 09/27/16 12:44 Spec Expiration Date 09/29/2016 09/26/16 05:56 Microbiology 09/27/16 09:33 Lymph Node Anaerobic Culture - Final 09/27/16 09:33 Lymph Node Gram Stain - Final 09/27/16 09:33 Lymph Node Tissue Culture - Final 09/23/16 18:40 Nasal Swab Nasal Screen MRSA/MSSA (QUINTIN) - Final 09/23/16 18:24 Urine,Clean Catch Urine Culture - Final Assessment and Plan (1) Congestive heart failure due to valvular disease Status: Acute (2) Atrial fibrillation with RVR Status: Acute (3) Histoplasmosis Narrative/Plan: Is noted this pleasant gentleman has a history of significant valvular heart disease. Also does have a history of thyroid cancer. Recent studies reveal evidence of some increase in the size of the lymph nodes within his mediastinum , comes with the time of his surgery and lymph node biopsies weren't obtained. Fortunately no malignancy was found, however there is evidence of fungal invasion with what appears to be histoplasmosis. For this the infectious diseases consultation was requested. 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 He has lived in [place] and has limited travels, but has been in [place]. We discussed that since his lymph nodes have increased in size and he does have pulmonary symptoms that it is prudent to treat him with itraconazole. His antifungal therapy is usually very well tolerated. Was started 200 mg twice per day. However is now been initiated to amiodarone. With this will reduce the itraconazole dose to 100 mg twice per day. This minimal dose Patient is improved with the AFIB and is without discomfort. Status: Acute
[2016-10-02] MEDS ORDERED: WARFARIN 7.5 MG TAB PO ONE (18:00)
[2016-10-02 21:12] LABS: Glucose,Whole Blood 115 mg/dL (75-99)
[2016-10-02] MEDS: SENNOSIDES-DOCUSATE SODIUM 1 EACH TAB PO SCH (21:36)
[2016-10-02] MEDS: IPRATROPIUM-ALBUTEROL 3 ML NEB INHALATION PRN (21:56)
[2016-10-02] MEDS: DOCUSATE 100 MG CAP PO SCH (23:45)
[2016-10-03 01:56] LABS: Glucose,Whole Blood 133 mg/dL (75-99)
[2016-10-03] MEDS: INSULIN LISPRO (humaLOG) 300 UNIT/3 ML VIAL SQ SCH ×5 (06:07→21:48)
[2016-10-03 06:17] LABS: Glucose,Whole Blood 115 mg/dL (75-99)
[2016-10-03 06:43] LABS: INR 1.3 (<1.1); Prothrombin Time 13.2 sec (9.0-12.0)
[2016-10-03 06:44] LABS: Ionized Calcium 3.9 mg/dL (4.5-5.3)
[2016-10-03] MEDS: PANTOPRAZOLE 40 MG TABLET PO SCH (06:53)
[2016-10-03] MEDS: LEVOTHYROXINE 75 MCG TAB PO SCH (06:54)
[2016-10-03 07:06] LABS: ALT 44 U/L (21-72); AST 41 U/L (17-59); Alkaline Phosphatase 67 U/L (38-126); Anion Gap 8 mmol/L; Blood Urea Nitrogen 38 mg/dL (9-20); Calcium 6.9 mg/dL (8.4-10.2); Carbon Dioxide 30 mmol/L (22-30); Chloride 92 mmol/L (98-107); Glucose 99 mg/dL (74-99); Non-African American GFR(MDRD) 59 (>60 ml/min/1.73 sqM); Potassium 3.8 mmol/L (3.5-5.1); Sodium 130 mmol/L (137-145); Total Bilirubin 1.1 mg/dL (0.2-1.3); Total Protein 5.4 g/dL (6.3-8.2)
[2016-10-03] MEDS: AMIODARONE 200 MG TAB PO SCH ×3 (07:15→23:16)
[2016-10-03] MEDS ORDERED: Potassium Replacement Protocol 1 EACH MISC MISCELLANE PRN (07:57)
[2016-10-03] MEDS: HEPARIN SODIUM,PORCINE 5,000 UNIT/ML 1 ML VIAL SQ SCH ×3 (08:08→23:15)
[2016-10-03] MEDS: DOCUSATE 100 MG CAP PO SCH ×2 (08:09→21:48)
[2016-10-03] MEDS: ASPIRIN 325 MG TAB PO SCH (08:09)
[2016-10-03] MEDS: ITRACONAZOLE 100 MG CAP PO SCH ×2 (08:09→21:48)
[2016-10-03] MEDS: FUROSEMIDE 40 MG TAB PO SCH (08:09)
[2016-10-03] MEDS: METOPROLOL TARTRATE 12.5 MG TAB PO SCH ×2 (08:10→21:48)
[2016-10-03] MEDS: MULTIVITAMINS, THERA 1 EACH TAB PO SCH (08:10)
[2016-10-03 08:25] LABS: Anisocytosis Slight; CH 30.5; CHCM 32.4; HCT 25.9 % (39.0-53.0); HDW 3.09; MCH 29.4 pg (25.0-35.0); MCV 94.7 fL (80.0-100.0); Mean Platelet Volume 7.9; RBC 2.74 m/uL (4.30-5.90); RDW 17.2 % (11.5-15.5); WBC 8.8 k/uL (3.8-10.6)
[2016-10-03] MEDS: IPRATROPIUM-ALBUTEROL 3 ML NEB INHALATION PRN (08:50)
[2016-10-03] MEDS ORDERED: POTASSIUM CHLORIDE ER 20 MEQ TAB.ER PO SCH (09:00)
[2016-10-03] MEDS ORDERED: CALCIUM GLUCONATE 2,000 MG in SODIUM CHLORIDE 0.9% 100 ML IVPB ONE (09:30)
--- NOTE | 2016-10-03 10:22 | P.PN ---
<Orion Quiroz Lewis - Last Filed: 10/03/16 10:21> Progress Note - Text CV Surgery Nursing Principal diagnosis: Severe mitral regurgitation, moderate aortic valve insufficiency, congestive heart failure, history of paroxysmal atrial fibrillation, hypothyroidism, post thyroidectomy for thyroid cancer, hypertension, and hyperlipidemia. POD #6 aortic valve replacement using a #27 mm Espinal bovine pericardial valve , mitral valve repair using a 30 mm minimal 3-D ring, left atrial appendage exclusion using a 35 mm [place], Frederick maze procedure, intraoperative transesophageal echocardiogram, mediastinal lymph node biopsy. Patient awake and alert, no distress noted, no specific complaints, he is sitting up to the bedside chair this time. Patient awake and alert, no distress noted, no specific complaints, he is sitting up to the bedside chair. 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 ] Respiratory 18 18 Rate Blood Pressure 97/57 109/59 [Left Arm] O2 Sat by Pulse 95 93 L 95 Oximetry 10/02/16 10/02/16 10/02/16 16:52 17:01 20:31 Temperature 98.0 F Pulse Rate Pulse Rate [ Bilateral Radial] Pulse Rate [ 105 H 75 Sales Order Specialist ] Respiratory 18 Rate Blood Pressure 108/57 101/61 [Left Arm] O2 Sat by Pulse 94 L 92 L Oximetry 10/02/16 10/02/16 10/03/16 21:59 22:14 00:00 Temperature 98.9 F Pulse Rate 74 79 Pulse Rate [ Bilateral Radial] Pulse Rate [ 76 Sales Order Specialist ] Respiratory 18 Rate Blood Pressure 95/52 [Left Arm] O2 Sat by Pulse 92 L Oximetry 10/03/16 10/03/16 10/03/16 04:00 08:51 09:02 Temperature 98.8 F Pulse Rate 68 68 Pulse Rate [ Bilateral Radial] Pulse Rate [ 68 Sales Order Specialist ] Respiratory 18 Rate Blood Pressure 102/54 [Left Arm] O2 Sat by Pulse 93 L Oximetry Labs: Short CBC 10/03/16 Range/Units 05:44 WBC 8.8 (3.8-10.6) k/uL Hgb 8.0 L (13.0-17.5) gm/dL Hct 25.9 L (39.0-53.0) % Plt Count 262 (150-450) k/uL BMP 10/03/16 05:44 Sodium 130 L Potassium 3.8 Chloride 92 L Carbon Dioxide 30 BUN 38 H Creatinine 1.20 Glucose 99 Calcium 6.9 L Liver Function 10/03/16 Range/Units 05:44 Total Bilirubin 1.1 (0.2-1.3) mg/dL AST 41 (17-59) U/L ALT 44 (21-72) U/L Alkaline Phosphatase 67 (38-126) U/L Albumin 2.9 L (3.5-5.0) g/dL ABG ABG pH 7.41 (7.35-7.45) 09/28/16 23:44 ABG pCO2 36 mmHg (35-45) 09/28/16 23:44 ABG pO2 66 mmHg (83-108) L 09/28/16 23:44 ABG O2 Saturation 93.0 % (94-97) L 09/28/16 23:44 PT/INR, D-dimer PT 13.2 sec (9.0-12.0) H 10/03/16 05:44 INR 1.3 (<1.1) 10/03/16 05:44 The patient received Coumadin 5 mg by mouth on 09/30/2016 and on 10/01/2016. He received Coumadin 7.5 mg by mouth on all 10/02/2016. Microbiology 09/27/16 09:33 Lymph Node Anaerobic Culture - Final 09/27/16 09:33 Lymph Node Gram Stain - Final 09/27/16 09:33 Lymph Node Tissue Culture - Final 09/23/16 18:40 Nasal Swab Nasal Screen MRSA/MSSA (QUINTIN) - Final 09/23/16 18:24 Urine,Clean Catch Urine Culture - Final Pathology: . Specimens: A. Soft Tissue - Thymus B. Lymph Node, Biopsy - Right Paratracheal C. Heart Valve - Portion Posterior Metral Valve D. Heart Valve - Aortic Valve RIGHT PARATRACHEAL LYMPH NODES: FEATURES CONSISTENT WITH HISTOPLASMOSIS. B. RIGHT PARATRACHEAL LYMPH NODES: BENIGN LYMPH NODES WITH CASEATING GRANULOMAS , PROMINENT SINUS HISTIOCYTOSIS AND ANTHRACOTIC PIGMENT. SEE NOTE. C. POSTERIOR LEAFLET MITRAL VALVE: THICKENED HEART VALVE LEAFLET WITH FIBROMYXOID DEGENERATIVE CHANGES. D. AORTIC VALVE: FOCALLY THICKENED HEART VALVE TISSUE WITH FIBROMYXOID DEGENERATIVE CHANGES. Notes The features in part B could represent infectious etiology versus idiopathic. Given the findings, special stains for organisms will be performed on block B1 and an addendum will follow. Lungs: Scattered rhonchi throughout, diminished bilateral bases. Respirations are unlabored. O2 sat: 93% on room air. I/S: 750-1000 mL, reviewed with the patient important of using his incentive spirometry every hour while awake. The patient did give a good return demonstration on his incentive spirometry. Heart: S1S2, regular rhythm and rate, negative for S3, gallop or murmur. Remote telemetry showing normal sinus rhythm heart rate 78 at this time. The patient did have self-limiting episode of atrial fibrillation this a.m. Sternum stable, chest incision clean with silverlon dressing clean and dry. Epicardial pacemaker wires remain in place. Knee-high ORLIN hose and sequential compression devices in place to bilateral lower extremity Kieran. Abdomen: Soft, Positive bowel sounds present in all 4 quadrants, positive bowel movement yesterday 10/02/2016 CBGs: 113-184 mg/dL the last 24 hours. U/O: Adequate. 24 hr Total: Intake & Output 10/01/16 10/02/16 10/03/16 10/04/16 06:59 06:59 06:59 06:59 Intake Total 1190 518 720 Output Total 3755 1200 1800 Balance -2565 -682 -1080 Weight 120.3 kg 116.5 kg 116.3 kg Active Medications Hydrocodone Bitart/Acetaminophen ([place]ene 5-325) 2 each PO Q4HR PRN PRN Reason: Severe Pain Last Admin: 10/02/16 21:37 Dose: 2 each Hydrocodone Bitart/Acetaminophen (Eugene 5-325) 1 each PO Q4HR PRN PRN Reason: Moderate Pain Last Admin: 09/30/16 04:54 Dose: 1 each Albuterol/Ipratropium (Duoneb 0.5 Mg-3 Mg/3 Ml Soln) 3 ml INHALATION RT-Q2H PRN PRN Reason: Shortness Of Breath Or Wheezing Last Admin: 10/03/16 08:50 Dose: 3 ml Amiodarone HCl (Cordarone) 400 mg PO Q8HR STEVAN Last Admin: 10/03/16 07:15 Dose: 400 mg Aspirin (Aspirin) 325 mg PO DAILY [facility] Last Admin: 10/03/16 08:09 Dose: 325 mg Benzocaine/Menthol (Cepacol Lozenge) 1 each MUCOUS MEM Q4HR PRN PRN Reason: sore throat Last Admin: 10/02/16 10:35 Dose: 1 each Bisacodyl (Dulcolax) 10 mg RECTAL DAILY PRN PRN Reason: Constipation Last Admin: 10/02/16 14:52 Dose: 10 mg Docusate Sodium (Colace) 100 mg PO BID [facility] Last Admin: 10/03/16 08:09 Dose: 100 mg Furosemide (Lasix) 40 mg PO BID@0900,1600 [facility] Last Admin: 10/03/16 08:09 Dose: 40 mg Heparin Sodium (Porcine) (Heparin) 5,000 unit SQ Q8HR [facility] Last Admin: 10/03/16 08:08 Dose: 5,000 unit Calcium Gluconate 2,000 mg/ (Sodium Chloride) 120 mls @ 100 mls/hr IVPB ONCE ONE Stop: 10/03/16 10:41 Last Admin: 10/03/16 08:46 Dose: 100 mls/hr Insulin Human Lispro (Humalog) 0 unit SQ [id number] [facility] PRN Reason: Protocol Last Admin: 10/03/16 06:54 Dose: Not Given Itraconazole (Sporanox) 100 mg PO BID [facility] Last Admin: 10/03/16 08:09 Dose: 100 mg Levothyroxine Sodium (Synthroid) 150 mcg PO DAILY@0630 [facility] Last Admin: 10/03/16 06:54 Dose: 150 mcg Magnesium Hydroxide (Milk Of Magnesia) 2,400 mg PO BID PRN PRN Reason: Constipation Last Admin: 10/02/16 10:35 Dose: 2,400 mg Metoprolol Tartrate (Lopressor) 12.5 mg PO BID [facility] Last Admin: 10/03/16 08:10 Dose: 12.5 mg Miscellaneous Information (Magnesium Per Protocol) 1 each MISCELLANE DAILY PRN ; Protocol PRN Reason: Per Protocol Miscellaneous Information (Phosphorus Per Protocol) 1 each MISCELLANE DAILY PRN ; Protocol PRN Reason: Per Protocol Miscellaneous Information (Potassium Per Protocol) 1 each MISCELLANE DAILY PRN ; Protocol PRN Reason: Per Protocol Miscellaneous Information (Potassium Per Protocol) 1 each MISCELLANE DAILY PRN ; Protocol PRN Reason: Per Protocol Miscellaneous Information (Potassium Per Protocol) 1 each MISCELLANE DAILY PRN ; Protocol PRN Reason: Per Protocol Multivitamins (Theragran) 1 each PO DAILY@1200 [facility] Last Admin: 10/03/16 08:10 Dose: 1 each Ondansetron HCl (Zofran) 4 mg IVP Q6HR PRN PRN Reason: Nausea And Vomiting Pantoprazole Sodium (Protonix) 40 mg PO AC-[id number] [facility] Last Admin: 10/03/16 06:53 Dose: 40 mg Senna/Docusate Sodium (Senokot-S) 2 each PO HS [facility] Last Admin: 10/02/16 21:36 Dose: 2 each Sodium Chloride (Saline Flush) 10 ml IV BID [facility] Last Admin: 10/03/16 08:10 Dose: 10 ml Plan: 1. Continue aspirin, Lopressor. Lipitor stopped by Dr. Ramos presumably due to drug interaction with Itraconazole. 2. Encourage incentive spirometry use q one hour while awake. 3. Continue oral amiodarone for his atrial fibrillation. 4. Encourage increased mobility. Out of bed to chair with ambulation in the hallway. Physical therapy to following. He ambulated 3 times in the hallway yesterday. 5. GI/DVT prophylaxis. 6. Diabetic management and insulin per primary service. 7. Coumadin 7.5 mg by mouth today for an INR of 1.3. 8. Potassium replacement and calcium replacement per protocol. 9. Discharge planning in place. <Brant Crawford - Last Filed: 10/03/16 12:12> Progress Note - Text The patient was seen and examined. I agree with the above assessment and plan. Overall he appears to be improving. There are no new issues overnight. He has been using his incentive spirometry is currently on room air. We will continue with Lasix for now. He did have a short run of atrial fibrillation earlier this morning which resolved on its own. He ambulated in the hallway without difficulty. His INR this morning was 1.3. We will administer 7.5 g Coumadin tonight. He is hesitant to go home today. We will plan on discharging him tomorrow.
--- NOTE | 2016-10-03 11:17 | PN ---
DATE OF SERVICE: 10/02/2016 This 71-year-old gentleman who was admitted with severe mitral regurgitation has moderate aortic regurgitation, underwent valve replacement and repair. No chest pain. No palpitations. No fever. On exam, alert and oriented x3. Pulse 75. Blood pressure 101/65. Respirations 18, temperature 98 degrees, pulse ox 92% on room air. HEENT: Conjunctivae normal. NECK: No jugular venous distention. CARDIOVASCULAR: S1, S2 muffled. RESPIRATORY: Breath sounds diminished in the bases. A few scattered rhonchi. No crackles. ABDOMEN: Soft. Nontender. LEGS: No edema. No swelling. CENTRAL NERVOUS SYSTEM: No focal deficits. LABORATORY DATA: WBC 7.3, hemoglobin 8.4, sodium 136, Accu-Cheks noted, 130 and 184 and 115. ASSESSMENT: 1. Severe mitral regurgitation as well as moderate aortic regurgitation status post aortic valve replacement as well as mitral valve repair. 2. Status post left mediastinal lymphadenopathy and paratracheal lymph node biopsy showing histoplasmosis. 3. Intermittent paroxysmal atrial fibrillation. 4. History of congestive heart failure. 5. History of atrial fibrillation paroxysmal. 6. Hyperlipidemia. 7. Increased random blood sugar possibly diabetes mellitus type 2. 8. Anemia also, possibly dilutional. 9. History of degenerative joint disease. 10. History of hypothyroidism. 11. History of thyroid cancer. 12. History of thyroidectomy. 13. History of nicotine dependence. Body mass index is 43.8. 14. History of chronic obstructive pulmonary disease. 15. History of pulmonary nodule 5.7 cm on the right middle lobe. 16. Hypoalbuminemia, mild to moderate protein calorie malnutrition. 17. Increased BUN. 18. Thrombocytopenia. RECOMMENDATIONS AND DISCUSSION: Recommend to continue current medications, continue symptomatic treatment. Otherwise, at this time, I would recommend continue amiodarone. Otherwise, closely follow with pulmonary and cardiology. Further recommendations to follow.
[2016-10-03 11:58] LABS: Glucose,Whole Blood 95 mg/dL (75-99)
--- NOTE | 2016-10-03 12:28 | XR ---
EXAMINATION TYPE: XR chest 1V portable DATE OF EXAM: 10/03/2016 11:57 AM Comparison: 10/02/2016 Clinical History: 71 year-old male post op AVR, mitral valve repair. Findings: Median sternotomy wires are present with a prosthetic aortic valve. Diffuse interstitial and vascular prominence persists along with continued small pleural effusions with adjacent opacity. Impression: 1. Correlate for CHF with pulmonary vascular congestion/mild interstitial edema. 2. Stable small pleural effusions with adjacent atelectasis and/or consolidation.
--- NOTE | 2016-10-03 14:38 | P.PN ---
Subjective 71-year-old male patient underwent aortic valve replacement and mitral valve repair. Patient is postop day #0. I saw this patient immediately after he arrived to the intensive care unit. The patient was still quite sedated and he was intubated on a mechanical ventilator. I reviewed the initial postsurgical chest x-ray which showed some atelectatic changes within the right lower lobe. ET tube was in a good location. The patient's chest tube were all in good location. Initial blood gases showed a pH of 7.28 with a pCO2 of 56 and pO2 of 220 and based on that the patient was placed on a tidal volume of 700 with a rate of 12. Currently he is on IA PEEP of 10 and FiO2 of 60%. Subsequent blood gases showed a pH of 7.36 with a pCO2 of 44 and pO2 of 53. The patient has 2 mediastinal chest tubes, and right pleural and the left pleural chest tube. The cardiac output of this point is at 6.6 with an index of 2.24. The CVP is at 19. The mean pulmonary artery pressure is 19. The patient is currently on no pressors. most recent mean arterial pressure is at 18 the patient is producing adequate amount of urine output. The patient artery received a total of 5 doses of 12.5 g of albumin. The patient is seen again today 09/28/2016 in follow-up in the intensive care unit. This is postoperative day #1. He is seen sitting up in the chair at the bedside. He denies any worsening shortness of breath, cough or congestion. He is pulling approximate 750 MLS on the incentive spirometer. He is on 5 L/ m per nasal cannula to maintain O2 saturations in the 90s. His chest x-ray shows continued atelectatic changes in the lung bases. He is maintaining regular sinus rhythm. He is off his drips other than insulin. His mediastinal and pleural chest tubes remain in place. The [place] was removed today. He has remained hemodynamically stable. On 09/29/2016 the patient is postop day #2. The patient is having some increased rhonchi and rest or secretions which she is unable to cough out. Today's chest x-ray shows atelectatic changes in the right lower lungs appear segment and some small bilateral pleural effusions. The patient was already given a dose of Lasix and he diuresed significantly in order of 1 L overall diuresis since he was given Lasix. His still has all of these chest tubes in place. The mediastinal chest tubes are been already removed. The patient's left pleural chest tube will be also pulled out today. He is hemodynamically stable. He is still on 4.5 units of insulin drip for blood sugar control and this will be switched with a 3. insulin scale utilizing NPH and ascites scale coverage. The patient has adequate pain control. Adequate urine output. Adequate mentation. Pulling up somewhat between 500-750 on his incentive spirometer. Hemoglobin was stable at 7.9. The cardiac rhythm is remains sinus and there may be some plans to put him on anticoagulation at a later stage. Cardiology is also on the case. On 09/30/2016 patient is postop day #3. The patient is doing very well. The patient is sitting up on a chair. There are small lung volumes and today's chest x-ray with some atelectatic changes small effusion in the right lung base. The patient is still has a right-sided chest tube. No chest pain. No drainage from the right-sided chest tube is limited and the patient will likely have his chest tube removed today. He has been switched to insulin long-acting and his blood pressure is under good control. He is hemodynamically stable. No other significant events over the past 24 hours. On 10/01/2016 the patient is postop day #4. He is doing well. No specific complaints. All of the chest tubes have been removed. Chest x-ray shows small lung volumes and atelectatic changes and small effusion the lung bases. Abdomen slightly distended. He has adequate bowel sounds. He will be given milk of magnesia for bowel motility. Overnight the patient went into atrial fibrillation with rapid ventricular response. The patient was placed on amiodarone per protocol. Currently is on amiodarone maintenance and his cardiac rhythm is in sinus although his having episodes of paroxysmal atrial fibrillation with a controlled rate. He was started also on warfarin regarding long-term anticoagulation. The patient is seen again today 10/02/2016 in follow-up. Postoperative day #5. He is sitting up in the chair at the bedside. He is awake and alert in no acute distress. Today's chest x-ray continues to show some pulmonary vascular congestion and mild interstitial edema. There are small bilateral pleural effusions. He is pulling approximately 1500 miles on his incentive spirometer. Intake and good O2 saturations in the 90s on 2 L/m per nasal cannula. He is afebrile. The global remains stable at 8.5. Currently in a sinus rhythm. He remains on amiodarone and warfarin. On 10/03/2016 the patient is postop day #6. He is doing well. No specific complaints. No specific difficulties. Sternum stable clean and intact. Discharge planning is in progress and the patient will likely get discharged home tomorrow. Note that the patient is being into correlated with warfarin regarding his atrial fibrillation. His INR is still subtherapeutic. He was also started on Sporanox 100 mg by mouth twice a day for pulmonary histoplasmosis infection. Objective - Vital Signs Vital signs: Vital Signs Temp 98.4 F 10/03/16 12:00 Pulse 73 10/03/16 12:00 Resp 18 10/03/16 12:00 BP 108/62 10/03/16 12:00 Pulse Ox 95 10/03/16 12:00 Intake & Output 10/02/16 10/03/16 10/03/16 18:59 06:59 18:59 Intake Total 720 480 Output Total 1250 550 300 Balance -530 -550 180 Weight 116.3 kg Intake: Oral 720 480 Output: Urine 1250 550 300 Other: Voiding Method Urinal Urinal Urinal # Bowel Movements 1 0 ABP, PAP, CO, CI - Last Documented Arterial Blood Pressure 110/53 Pulmonary Artery Pressure 40/20 Cardiac Output 4.2 Cardiac Index 1.9 - Exam Head exam was generally normal. There was no scleral icterus or corneal arcus. Mucous membranes were moist.Neck was supple and without jugular venous distension, thyromegaly, or carotid bruits. Carotids were easily palpable bilaterally. There was no adenopathy. Patient has orogastric and orotracheal tube are both in place. The patient has a right IJ Cordis in place. Lung sounds are equal and symmetrical bilaterally. No wheezes or rhonchi.Cardiac exam revealed the PMI to be normally situated and sized. The rhythm was regular and no extrasystoles were noted during several minutes of auscultation. The first and second heart sounds were normal and physiologic splitting of the second heart sound was noted. There were no murmurs, rubs, clicks, or gallops. Sternum is stable clean and intact. The patient has right pleural chest tube. Abdominal exam revealed normal bowel sounds. The abdomen was soft, non- tender, and without masses, organomegaly, or appreciable enlargement of the abdominal aorta.Examination of the extremities revealed easily palpable radial, femoral and pedal pulses. There was no cyanosis, clubbing or edema. As per the right pleural space. - Labs CBC & Chem 7: 10/03/16 05:44 10/03/16 05:44 Labs: Abnormal Lab Results - Last 24 Hours (Table) 10/02/16 10/02/16 10/03/16 Range/Units 16:38 20:41 01:54 RBC (4.30-5.90) m/uL Hgb (13.0-17.5) gm/dL Hct (39.0-53.0) % RDW (11.5-15.5) % PT (9.0-12.0) sec Sodium (137-145) mmol/L Chloride (98-107) mmol/L BUN (9-20) mg/dL POC Glucose (mg/dL) 184 H 115 H 133 H (75-99) mg/dL Calcium (8.4-10.2) mg/dL Ionized Calcium Guille (4.5-5.3) mg/dL Total Protein (6.3-8.2) g/dL Albumin (3.5-5.0) g/dL 10/03/16 10/03/16 10/03/16 Range/Units 05:44 05:44 05:44 RBC 2.74 L (4.30-5.90) m/uL Hgb 8.0 L (13.0-17.5) gm/dL Hct 25.9 L (39.0-53.0) % RDW 17.2 H (11.5-15.5) % PT 13.2 H (9.0-12.0) sec Sodium 130 L (137-145) mmol/L Chloride 92 L (98-107) mmol/L BUN 38 H (9-20) mg/dL POC Glucose (mg/dL) (75-99) mg/dL Calcium 6.9 L (8.4-10.2) mg/dL Ionized Calcium Guille 3.9 L (4.5-5.3) mg/dL Total Protein 5.4 L (6.3-8.2) g/dL Albumin 2.9 L (3.5-5.0) g/dL 10/03/16 Range/Units 05:50 RBC (4.30-5.90) m/uL Hgb (13.0-17.5) gm/dL Hct (39.0-53.0) % RDW (11.5-15.5) % PT (9.0-12.0) sec Sodium (137-145) mmol/L Chloride (98-107) mmol/L BUN (9-20) mg/dL POC Glucose (mg/dL) 115 H (75-99) mg/dL Calcium (8.4-10.2) mg/dL Ionized Calcium Guille (4.5-5.3) mg/dL Total Protein (6.3-8.2) g/dL Albumin (3.5-5.0) g/dL Microbiology - Last 24 Hours (Table) 09/27/16 09:33 Anaerobic Culture - Final Lymph Node Assessment and Plan Plan: Assessment 1 status post aortic valve replacement and mitral valve repair, patient is postop day #6. Preoperative disease included severe mitral regurgitation and moderate degree of aortic valve insufficiency. Postop day 6 2 Right paratracheal lymph node that was biopsied at time of surgery and turned out to be consistent with histoplasmosis. The patient was started on itraconazole 100 mg by mouth twice a day. 3 postoperative right lower lobe atelectatic segmental changes and small effusions 4 severe mitral regurgitation and aortic valve insufficiency, preoperatively 5 postoperative atrial fibrillation, currently on amiodarone and the patient was also started on long-term articulation with warfarin with a subtherapeutic PT/INR. 6 postoperative anemia with a hemoglobin of 8.0 7 hypothyroidism, post thyroidectomy for thyroid cancer 8 hyperlipidemia 9 hypertension Plan Continue anticoagulation. Monitor PT/INR. INR today is at 1.3. Continue the itraconazole. Pulmonary status is stable. Encourage use of incentive spirometer. Discharge planning is in progress.
--- NOTE | 2016-10-03 16:18 | PN ---
Mr. Stevenson is in sinus rhythm. He had short runs of atrial fibrillation. He is being anticoagulated and PT, INR is being adjusted by Dr. Riggs. Patient has aortic valve bioprosthesis as well as a mitral valve repair with Maze procedure. He is hemodynamically stable, doing well on incentive spirometry. Plan is to continue current medications, incentive spirometry, increase activity. Vital signs are stable. There is no JVD. S1, S2 heard normally. Short systolic murmur noted. Lungs are clear. Abdomen and lower extremity exam is unchanged. Plan is to continue current medications. Increase activity, and incentive spirometry.
[2016-10-03 16:52] LABS: Glucose,Whole Blood 124 mg/dL (75-99)
[2016-10-03] MEDS ORDERED: WARFARIN 7.5 MG TAB PO ONE (18:00)
[2016-10-03] MEDS: HYDROcodone/APAP 5-325MG 1 EACH TAB PO PRN ×2 (18:27→23:16)
[2016-10-03 21:06] LABS: Glucose,Whole Blood 142 mg/dL (75-99)
[2016-10-03] MEDS: SENNOSIDES-DOCUSATE SODIUM 1 EACH TAB PO SCH (23:16)
[2016-10-04 03:17] LABS: Glucose,Whole Blood 127 mg/dL (75-99)
[2016-10-04] MEDS: INSULIN LISPRO (humaLOG) 300 UNIT/3 ML VIAL SQ SCH ×3 (06:03→11:44)
[2016-10-04 06:27] LABS: Anisocytosis Slight; CHCM 32.7; HCT 25.8 % (39.0-53.0); HDW 3.28; HGB 8.7 gm/dL (13.0-17.5); Hypochromasia Slight; MCH 31.1 pg (25.0-35.0); MCHC 33.7 g/dL (31.0-37.0); MCV 92.3 fL (80.0-100.0); Mean Platelet Volume 7.7; RDW 17.1 % (11.5-15.5); WBC 10.4 k/uL (3.8-10.6)
[2016-10-04 06:28] LABS: INR 1.6 (<1.1); Prothrombin Time 15.7 sec (9.0-12.0)
[2016-10-04 06:34] LABS: Glucose,Whole Blood 123 mg/dL (75-99)
[2016-10-04] MEDS: LEVOTHYROXINE 75 MCG TAB PO SCH (06:56)
[2016-10-04] MEDS: AMIODARONE 200 MG TAB PO SCH ×2 (06:56→15:55)
[2016-10-04] MEDS: PANTOPRAZOLE 40 MG TABLET PO SCH (06:56)
[2016-10-04] MEDS: HYDROcodone/APAP 5-325MG 1 EACH TAB PO PRN ×2 (06:57→11:45)
[2016-10-04 07:03] LABS: ALT 47 U/L (21-72); AST 54 U/L (17-59); Alkaline Phosphatase 76 U/L (38-126); Anion Gap 11 mmol/L; Blood Urea Nitrogen 33 mg/dL (9-20); Calcium 7.3 mg/dL (8.4-10.2); Carbon Dioxide 29 mmol/L (22-30); Chloride 92 mmol/L (98-107); Glucose 108 mg/dL (74-99); Magnesium 2.3 mg/dL (1.6-2.3); Non-African American GFR(MDRD) >60 (>60 ml/min/1.73 sqM); Sodium 132 mmol/L (137-145); Total Bilirubin 1.2 mg/dL (0.2-1.3); Total Protein 5.9 g/dL (6.3-8.2)
[2016-10-04] MEDS: HEPARIN SODIUM,PORCINE 5,000 UNIT/ML 1 ML VIAL SQ SCH (07:49)
[2016-10-04] MEDS: DOCUSATE 100 MG CAP PO SCH (07:50)
[2016-10-04] MEDS: METOPROLOL TARTRATE 12.5 MG TAB PO SCH (07:50)
[2016-10-04] MEDS: ASPIRIN 325 MG TAB PO SCH (07:50)
[2016-10-04] MEDS: ITRACONAZOLE 100 MG CAP PO SCH (07:50)
[2016-10-04] MEDS: MULTIVITAMINS, THERA 1 EACH TAB PO SCH (07:51)
[2016-10-04] MEDS: IPRATROPIUM-ALBUTEROL 3 ML NEB INHALATION PRN ×2 (08:34→11:46)
[2016-10-04] MEDS ORDERED: FUROSEMIDE 40 MG TAB PO SCH (09:00)
--- NOTE | 2016-10-04 09:16 | XR ---
EXAMINATION TYPE: XR chest 1V portable DATE OF EXAM: 10/04/2016 7:22 AM COMPARISON: 10/03/2016 INDICATION: Recent mitral valve repair TECHNIQUE: Single frontal view of the chest is obtained. FINDINGS: The heart size is enlarged. The pulmonary vasculature is normal. Mild left lower lobe infiltrate is present. This is slightly worsened from prior study. A right lower lobe infiltrate is present. This is worsening from prior study. Sternotomy wires are present from pr evious mitral valve surgery. IMPRESSION: 1. Bibasilar infiltrates worsening from comparison. Correlate for atelectasis. Pneumonia could be con sidered.
[2016-10-04 10:04] VITALS: RESP 18
--- NOTE | 2016-10-04 10:12 | PN ---
DATE OF SERVICE: 10/03/2016 This 71-year-old gentleman admitted after severe mitral regurgitation and moderate aortic regurgitation, underwent valve surgery. The patient is being closely monitored. No chest pain. No palpitation. No fever. On exam, alert and oriented x3. Pulse is 73, blood pressure 108/62, respiration 18, temperature 98.4, pulse ox 94% on 2 L. HEENT: Conjunctivae normal. NECK: No jugular venous distension. CARDIOVASCULAR SYSTEM: S1, S2 muffled. RESPIRATORY: Breath sounds diminished at the bases, a few scattered rhonchi, no crackles. Abdomen is soft, nontender. NERVOUS SYSTEM: No focal deficits. LABS: Hemoglobin 8, INR 1.2, sodium 130. Accu-Cheks are noted. ASSESSMENT: 1. Severe mitral regurgitation as well as moderate aortic regurgitation, status post aortic valve replacement as well mitral valve repair. 2. Status post left mediastinal lymphadenopathy and paratracheal lymph node biopsy showing histoplasmosis. 3. Intermittent paroxysmal atrial fibrillation. 4. History of congestive heart failure. 5. History of atrial fibrillation, paroxysmal. 6. Hyperlipidemia. 7. Increased random blood sugar, possibly diabetes mellitus type 2. 8. Anemia, possibly dilutional. 9. History of degenerative joint disease. 10. Hypothyroidism. 11. History of thyroid cancer. 12. History of thyroidectomy. 13. History of nicotine dependence. 14. Body mass index of 43.8. 15. History of chronic obstructive pulmonary disease. 16. History of pulmonary nodule 5.7 cm on the right middle lobe. 17. Hypoalbuminemia with mild to moderate protein calorie malnutrition. 18. Increased BUN. 19. Thrombocytopenia. RECOMMENDATIONS AND DISCUSSION: Recommend to continue current medications. Continue symptomatic treatment. Monitor blood sugars closely. Guarded prognosis because of acute complex medical issues. Further recommendations to follow. She orders for further details.
--- NOTE | 2016-10-04 11:35 | P.PN ---
Subjective Principal diagnosis: Severe mitral regurgitation, moderate aortic valvular insufficiency, congestive heart failure, history of paroxysmal atrial fibrillation, hypothyroidism, hypertension, and hyperlipidemia. POD #7 aortic valve replacement, mitral valve repair, Frederick maze procedure, intraoperative transesophageal echocardiogram, mediastinal lymph node biopsy Currently sitting up in chair eating breakfast in no apparent distress. Denies chest pain, shortness of breath. Son at bedside. All questions answered. Objective - Vital Signs Vital signs: Vital Signs Temp 97.8 F 10/04/16 03:21 Pulse 71 10/04/16 03:21 Resp 20 10/04/16 03:21 BP 105/67 10/04/16 03:21 Pulse Ox 92 L 10/04/16 03:21 Intake & Output 10/03/16 10/04/16 10/04/16 18:59 06:59 18:59 Intake Total 720 Output Total 400 1350 Balance 320 -1350 Weight 121.4 kg Intake: Oral 720 Output: Urine 400 1350 Other: Voiding Method Urinal Urinal # Voids 1 # Bowel Movements 0 ABP, PAP, CO, CI - Last Documented Arterial Blood Pressure 110/53 Pulmonary Artery Pressure 40/20 Cardiac Output 4.2 Cardiac Index 1.9 - Constitutional General appearance: Present: cooperative, no acute distress, obese - Respiratory Details: Lungs sounds diminished bilaterally. Respirations even, nonlabored. Able to achieve 1000 mL on his incentive spirometry. Effective cough. - Cardiovascular Details: S1, S2 present. Regular rate and rhythm, normal sinus rhythm on telemetry. Did have an episode of atrial fibrillation on telemetry last night. A/V epicardial pacemaker wires present but capped. Sternum stable. Heart hugger in place with patient demonstrating appropriate use. Trace bilateral lower extremity edema present. Teds/SCDs present. - Gastrointestinal Gastrointestinal Comment(s): Abdomen soft, nontender, nondistended. Active bowel sounds 4 quadrants. Tolerating diet. Positive bowel movement 10/02/2016. - Genitourinary Genitourinary Comment(s): Continues to void clear, yellow urine per urinal. Adequate output. - Integumentary Integumentary Comment(s): Anterior chest wall incision well approximated, Silver[place] dressing removed. - Musculoskeletal Musculoskeletal: Present: gait normal, strength equal bilaterally - Psychiatric Psychiatric: Present: A&O x's 3, appropriate affect, intact judgment & insight - Allied health notes Allied health notes reviewed: PT - Labs CBC & Chem 7: 10/04/16 05:59 10/04/16 05:59 Labs: Abnormal Lab Results - Last 24 Hours (Table) 10/03/16 10/03/16 10/03/16 Range/Units 05:44 16:41 20:51 RBC 2.74 L (4.30-5.90) m/uL Hgb 8.0 L (13.0-17.5) gm/dL Hct 25.9 L (39.0-53.0) % RDW 17.2 H (11.5-15.5) % PT (9.0-12.0) sec Sodium (137-145) mmol/L Chloride (98-107) mmol/L BUN (9-20) mg/dL Glucose (74-99) mg/dL POC Glucose (mg/dL) 124 H 142 H (75-99) mg/dL Calcium (8.4-10.2) mg/dL Total Protein (6.3-8.2) g/dL Albumin (3.5-5.0) g/dL 10/04/16 10/04/16 10/04/16 Range/Units 03:05 05:52 05:59 RBC 2.80 L (4.30-5.90) m/uL Hgb 8.7 L (13.0-17.5) gm/dL Hct 25.8 L (39.0-53.0) % RDW 17.1 H (11.5-15.5) % PT (9.0-12.0) sec Sodium (137-145) mmol/L Chloride (98-107) mmol/L BUN (9-20) mg/dL Glucose (74-99) mg/dL POC Glucose (mg/dL) 127 H 123 H (75-99) mg/dL Calcium (8.4-10.2) mg/dL Total Protein (6.3-8.2) g/dL Albumin (3.5-5.0) g/dL 10/04/16 10/04/16 Range/Units 05:59 05:59 RBC (4.30-5.90) m/uL Hgb (13.0-17.5) gm/dL Hct (39.0-53.0) % RDW (11.5-15.5) % PT 15.7 H (9.0-12.0) sec Sodium 132 L (137-145) mmol/L Chloride 92 L (98-107) mmol/L BUN 33 H (9-20) mg/dL Glucose 108 H (74-99) mg/dL POC Glucose (mg/dL) (75-99) mg/dL Calcium 7.3 L (8.4-10.2) mg/dL Total Protein 5.9 L (6.3-8.2) g/dL Albumin 3.2 L (3.5-5.0) g/dL - Imaging and Cardiology Chest x-ray: image reviewed Assessment and Plan (1) Mitral valvular regurgitation Status: Acute (2) Moderate aortic insufficiency Status: Acute (3) Congestive heart failure due to valvular disease Status: Acute (4) Paroxysmal atrial fibrillation Status: Acute (5) Hypothyroidism (acquired) Status: Acute (6) Obesity Status: Acute (7) Hypercholesterolemia Status: Acute (8) Hypertension Status: Acute Plan: 1. Continue aspirin, Lopressor. Lipitor stopped by Dr. Ramos presumably due to drug interaction with Itraconazole. 2. Encourage incentive spirometry use. 3. Continue amiodarone for A. fib prophylaxis.Will DC pt on 200 mg BID x 1 week , then 200 mg daily. 4. Encourage increased mobility. Ambulation in the hallway. Physical therapy following. 5. GI/DVT prophylaxis. 6. Diabetic management and insulin per primary service. 7. Will give Coumadin 7.5 mg this evening. Will send pt home on 7.5 mg for 3 days, then 5 mg daily with follow up in Coumadin clinic for future dosing 8. Will discontinue epicardial pacemaker wires today. 9. Will discharge to home with home care today. Time with Patient: Greater than 30
[2016-10-04 11:44] LABS: Glucose,Whole Blood 130 mg/dL (75-99)
--- NOTE | 2016-10-04 12:28 | P.PN ---
Subjective Principal diagnosis: Status post aortic valve replacement and mitral valve repair 71-year-old male patient underwent aortic valve replacement and mitral valve repair. Patient is postop day #0. I saw this patient immediately after he arrived to the intensive care unit. The patient was still quite sedated and he was intubated on a mechanical ventilator. I reviewed the initial postsurgical chest x-ray which showed some atelectatic changes within the right lower lobe. ET tube was in a good location. The patient's chest tube were all in good location. Initial blood gases showed a pH of 7.28 with a pCO2 of 56 and pO2 of 220 and based on that the patient was placed on a tidal volume of 700 with a rate of 12. Currently he is on IA PEEP of 10 and FiO2 of 60%. Subsequent blood gases showed a pH of 7.36 with a pCO2 of 44 and pO2 of 53. The patient has 2 mediastinal chest tubes, and right pleural and the left pleural chest tube. The cardiac output of this point is at 6.6 with an index of 2.24. The CVP is at 19. The mean pulmonary artery pressure is 19. The patient is currently on no pressors. most recent mean arterial pressure is at 18 the patient is producing adequate amount of urine output. The patient artery received a total of 5 doses of 12.5 g of albumin. The patient is seen again today 09/28/2016 in follow-up in the intensive care unit. This is postoperative day #1. He is seen sitting up in the chair at the bedside. He denies any worsening shortness of breath, cough or congestion. He is pulling approximate 750 MLS on the incentive spirometer. He is on 5 L/ m per nasal cannula to maintain O2 saturations in the 90s. His chest x-ray shows continued atelectatic changes in the lung bases. He is maintaining regular sinus rhythm. He is off his drips other than insulin. His mediastinal and pleural chest tubes remain in place. The [place] was removed today. He has remained hemodynamically stable. On 09/29/2016 the patient is postop day #2. The patient is having some increased rhonchi and rest or secretions which she is unable to cough out. Today's chest x-ray shows atelectatic changes in the right lower lungs appear segment and some small bilateral pleural effusions. The patient was already given a dose of Lasix and he diuresed significantly in order of 1 L overall diuresis since he was given Lasix. His still has all of these chest tubes in place. The mediastinal chest tubes are been already removed. The patient's left pleural chest tube will be also pulled out today. He is hemodynamically stable. He is still on 4.5 units of insulin drip for blood sugar control and this will be switched with a 3. insulin scale utilizing NPH and ascites scale coverage. The patient has adequate pain control. Adequate urine output. Adequate mentation. Pulling up somewhat between 500-750 on his incentive spirometer. Hemoglobin was stable at 7.9. The cardiac rhythm is remains sinus and there may be some plans to put him on anticoagulation at a later stage. Cardiology is also on the case. On 09/30/2016 patient is postop day #3. The patient is doing very well. The patient is sitting up on a chair. There are small lung volumes and today's chest x-ray with some atelectatic changes small effusion in the right lung base. The patient is still has a right-sided chest tube. No chest pain. No drainage from the right-sided chest tube is limited and the patient will likely have his chest tube removed today. He has been switched to insulin long-acting and his blood pressure is under good control. He is hemodynamically stable. No other significant events over the past 24 hours. On 10/01/2016 the patient is postop day #4. He is doing well. No specific complaints. All of the chest tubes have been removed. Chest x-ray shows small lung volumes and atelectatic changes and small effusion the lung bases. Abdomen slightly distended. He has adequate bowel sounds. He will be given milk of magnesia for bowel motility. Overnight the patient went into atrial fibrillation with rapid ventricular response. The patient was placed on amiodarone per protocol. Currently is on amiodarone maintenance and his cardiac rhythm is in sinus although his having episodes of paroxysmal atrial fibrillation with a controlled rate. He was started also on warfarin regarding long-term anticoagulation. The patient is seen again today 10/02/2016 in follow-up. Postoperative day #5. He is sitting up in the chair at the bedside. He is awake and alert in no acute distress. Today's chest x-ray continues to show some pulmonary vascular congestion and mild interstitial edema. There are small bilateral pleural effusions. He is pulling approximately 1500 miles on his incentive spirometer. Intake and good O2 saturations in the 90s on 2 L/m per nasal cannula. He is afebrile. The global remains stable at 8.5. Currently in a sinus rhythm. He remains on amiodarone and warfarin. On 10/03/2016 the patient is postop day #6. He is doing well. No specific complaints. No specific difficulties. Sternum stable clean and intact. Discharge planning is in progress and the patient will likely get discharged home tomorrow. Note that the patient is being into correlated with warfarin regarding his atrial fibrillation. His INR is still subtherapeutic. He was also started on Sporanox 100 mg by mouth twice a day for pulmonary histoplasmosis infection. On 10/04/2016, patient is postoperative day #7, he is doing relatively well, chest x-ray showed some mild congestive heart failure changes, but clinically the patient is asymptomatic. No cough no wheezing no shortness of breath. 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 Labs were reviewed hemoglobin is 8.7 electrolytes profile is normal patient remains on diuretics. Chest x-ray also showed bibasilar atelectasis. Patient is not in any form of respiratory distress. Discharge planning is in progress. Objective - Vital Signs Vital signs: Vital Signs Temp 97.9 F 10/04/16 08:00 Pulse 72 10/04/16 11:57 Resp 18 10/04/16 08:00 BP 102/61 10/04/16 08:00 Pulse Ox 91 L 10/04/16 08:34 Intake & Output 10/03/16 10/04/16 10/04/16 18:59 06:59 18:59 Intake Total 720 298 Output Total 400 1350 Balance 320 -1350 298 Weight 121.4 kg Intake: Oral 720 298 Output: Urine 400 1350 Other: Voiding Method Urinal Urinal Urinal # Voids 1 # Bowel Movements 0 ABP, PAP, CO, CI - Last Documented Arterial Blood Pressure 110/53 Pulmonary Artery Pressure 40/20 Cardiac Output 4.2 Cardiac Index 1.9 - Exam Head exam was generally normal. There was no scleral icterus or corneal arcus. Mucous membranes were moist.Neck was supple and without jugular venous distension, thyromegaly, or carotid bruits. Carotids were easily palpable bilaterally. There was no adenopathy. Patient has orogastric and orotracheal tube are both in place. The patient has a right IJ Cordis in place. Lung sounds are equal and symmetrical bilaterally. No wheezes or rhonchi.Cardiac exam revealed the PMI to be normally situated and sized. The rhythm was regular and no extrasystoles were noted during several minutes of auscultation. The first and second heart sounds were normal and physiologic splitting of the second heart sound was noted. There were no murmurs, rubs, clicks, or gallops. Sternum is stable clean and intact. The patient has right pleural chest tube. Abdominal exam revealed normal bowel sounds. The abdomen was soft, non- tender, and without masses, organomegaly, or appreciable enlargement of the abdominal aorta.Examination of the extremities revealed easily palpable radial, femoral and pedal pulses. There was no cyanosis, clubbing or edema. As per the right pleural space. - Labs CBC & Chem 7: 10/04/16 05:59 10/04/16 05:59 Labs: Abnormal Lab Results - Last 24 Hours (Table) 10/03/16 10/03/16 10/04/16 Range/Units 16:41 20:51 03:05 RBC (4.30-5.90) m/uL Hgb (13.0-17.5) gm/dL Hct (39.0-53.0) % RDW (11.5-15.5) % PT (9.0-12.0) sec Sodium (137-145) mmol/L Chloride (98-107) mmol/L BUN (9-20) mg/dL Glucose (74-99) mg/dL POC Glucose (mg/dL) 124 H 142 H 127 H (75-99) mg/dL Calcium (8.4-10.2) mg/dL Ionized Calcium Guille (4.5-5.3) mg/dL Total Protein (6.3-8.2) g/dL Albumin (3.5-5.0) g/dL 10/04/16 10/04/16 10/04/16 Range/Units 05:52 05:59 05:59 RBC 2.80 L (4.30-5.90) m/uL Hgb 8.7 L (13.0-17.5) gm/dL Hct 25.8 L (39.0-53.0) % RDW 17.1 H (11.5-15.5) % PT 15.7 H (9.0-12.0) sec Sodium (137-145) mmol/L Chloride (98-107) mmol/L BUN (9-20) mg/dL Glucose (74-99) mg/dL POC Glucose (mg/dL) 123 H (75-99) mg/dL Calcium (8.4-10.2) mg/dL Ionized Calcium Guille (4.5-5.3) mg/dL Total Protein (6.3-8.2) g/dL Albumin (3.5-5.0) g/dL 10/04/16 10/04/16 Range/Units 05:59 11:42 RBC (4.30-5.90) m/uL Hgb (13.0-17.5) gm/dL Hct (39.0-53.0) % RDW (11.5-15.5) % PT (9.0-12.0) sec Sodium 132 L (137-145) mmol/L Chloride 92 L (98-107) mmol/L BUN 33 H (9-20) mg/dL Glucose 108 H (74-99) mg/dL POC Glucose (mg/dL) 130 H (75-99) mg/dL Calcium 7.3 L (8.4-10.2) mg/dL Ionized Calcium Guille 4.0 L (4.5-5.3) mg/dL Total Protein 5.9 L (6.3-8.2) g/dL Albumin 3.2 L (3.5-5.0) g/dL Assessment and Plan Plan: 1 status post aortic valve replacement and mitral valve repair, patient is postop day #7 Preoperative disease included severe mitral regurgitation and moderate degree of aortic valve insufficiency. Postop day 7 2 Right paratracheal lymph node that was biopsied at time of surgery and turned out to be consistent with histoplasmosis. The patient was started on itraconazole 100 mg by mouth twice a day. This will have to be continued for at least 3 months. 3 postoperative right lower lobe atelectatic segmental changes and small effusions 4 severe mitral regurgitation and aortic valve insufficiency, preoperatively 5 postoperative atrial fibrillation, currently on amiodarone and the patient was also started on long-term articulation with warfarin with a subtherapeutic PT/INR. 6 postoperative anemia with a hemoglobin of 8.0 7 hypothyroidism, post thyroidectomy for thyroid cancer 8 hyperlipidemia 9 hypertension Recommendation: Continue present treatment plan, continue itraconazole for at least 3 months, follow-up on outpatient basis with Dr. Albert in 2 weeks postdischarge. Time with Patient: Less than 30
[2016-10-04 12:51] VITALS: BP 104/71; PULSE 79; TEMP 97.8
--- NOTE | 2016-10-04 13:45 | P.DS ---
Providers Date of admission: 09/25/16 11:40 Attending physician: Jae Riggs Consults: 09/23/16 16:06 Consult Physician Urgent Consulting Provider: Jae Riggs Consult Reason/Comments: AVR, MVR Do you want consulting provider notified?: Already Contacted 09/23/16 18:12 Consult Physician Routine Consulting Provider: Augie Armando Consult Reason/Comments: pulmonary management Do you want consulting provider notified?: Yes, Notify in am 09/24/16 10:00 Consult Anesthesia Routine Consulting Provider: Anesthesia,Services Consult Reason/Comments: Cardiac Surgery Pre-Op 09/25/16 09:19 Consult Physician Routine Consulting Provider: Tao Alston Consult Reason/Comments: chf Do you want consulting provider notified?: Already Contacted 09/30/16 07:46 Consult Physician Routine Consulting Provider: Johnny Ramos Consult Reason/Comments: 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 Do you want consulting provider notified?: Yes 10/03/16 07:44 Consult Physician Routine Consulting Provider: Alcon Dillon Consult Reason/Comments: medical mangement Do you want consulting provider notified?: Already Contacted Primary care physician: [facility] Course: FINAL DIAGNOSIS: 1.[mitral valve regurgitation] 2.[aortic valve insufficiency] 3.[paroxysmal atrial fibrillation] 4.[mediastinal lymphadenopathy] 5.[ hypertension] 6.[Hyperlipidemia] 7.[Hypothyroidism] 8.[Previous history of nicotine dependence] 9.[Congestive heart failure] 10.[Obesity] PRINCIPAL PROCEDURE: [] 1.[complex mitral valve repair, aortic valve replacement] 2.[modified Frederick maze, epi-aortic ultrasonography] 3.[mediastinal lymph node biopsy] HISTORY OF PRESENT ILLNESS: [this 71-year-old gentleman had a distant history of thyroid cancer which was treated with iodine 125. He was following at [facility] and was found to have mediastinal adenopathy. In addition, he complained of increasing shortness of breath, was worked up by cardiology, and was found to have severe mitral regurgitation and moderate aortic valvular regurgitation. He also was recently diagnosed with paroxysmal atrial fibrillation. Elective cardiac catheterization was performed which demonstrated essentially normal coronary arteries.Dr. Riggs from cardiothoracic surgery was consulted for the possibility of aortic valve replacement, mitral valve repair, and mediastinal lymph node biopsy. Extensive discussion was had with the patient and his family, all risks and benefits were explained, and consent was obtained to proceed with surgery. ] HOSPITAL COURSE:[The patient was kept inpatient secondary to the severity of his disease. On 09/27/2016 he was taken to the operating room where Dr. Riggs performed a complex mitral valve repair using a 30 mm david 3-D ring, aortic valve replacement using a #27 mm Espinal bovine pericardial valve, modified Frederick maze, epi-aortic ultrasonography, and mediastinal lymph node biopsy. Upon completion of the surgery, the patient was transferred to the cardiovascular intensive care unit where he was recovered, monitored hemodynamically, and where he progressed to cardiac rehabilitation phase 1. He was extubated, all lines, tubes, and drips were discontinued when appropriate, and he was transferred to [address] [place] [address] for further monitoring and rehabilitation. 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 Ramos was consulted for treatment. The patient also had an episode of paroxysmal atrial fibrillation which he had preoperatively and it was treated accordingly.His oxygen was titrated down, he continued to work with physical therapy, and was ready to be discharged home on postoperative day #7 with [facility] to follow. He received written and verbal instruction regarding his medications, activity restrictions, signs and symptoms requiring physician education, and follow-up appointments. COMPLICATIONS: [The patient experienced no postoperative complications.] DISCHARGE INSTRUCTIONS: 1. No driving for 4 weeks, or until physician gives their ok. 2. The patient should sleep in their own bed, no medical bed needed. 3. Stairs are not an issue. If the bedroom is upstairs, it is advised that the patient go up at night and down in the morning for the first week. Go slowly, using handrail and take 1 step at a time. 4. ORLIN hose are to be worn for 30 days or until physician discontinues. 5. Heart hugger is to be worn 100% of the time until physician discontinues.( except when showering) 6. No lifting, pushing, or pulling more than 10 pounds for 12 weeks. The physician will advise of any restriction changes. 7. The patient is expected to continue the prescribed walking program. 8. Continue pain control per as needed orders. 9. Continue with incentive spirometry and splinting/heart hugger until otherwise directed by the physician. 10. Must shower daily using liquid antibacterial soap and a separate white washcloth for each individual incision. 11. Routine sternal incision care. No lotions, powders, ointments on incisions. HOME HEALTH SERVICES TO PROVIDE: RN SKILLED HOME CARE SERVICES FOR POST-OP SURGICAL PATIENTS WITH THE FOLLOWING: Coronary Artery Bypass Surgery (CABG), Mitral Valve Replacement/ Repair ( MVR), Aortic Valve Replacement/Repair (AVR) RN TO CONTINUE EDUCATION FROM ``ROAD TO A HEALTH HEART PATIENT EDUCATION MANUAL (GIVEN TO PATIENT IN THE HOSPITAL) MEDICATION RECONCILIATION WITH EDUCATION NEEDED ON FIRST HOME VISIT EMPHASIZE IMPORTANCE OF WEARING HEART HUGGER ENCOURAGE USE OF INCENTIVE SPIROMETER 10 X EVERY HOUR WHILE AWAKE ENCOURAGE UTILIZATION OF LOWER EXTREMITY COMPRESSION STOCKINGS/ORLIN HOSE and ELEVATE LEGS ABOVE LEVEL OF HEART WHILE AT REST. ENCOURAGE AMBULATION 3-5x/day INCREASING TOLERATES, WHILE AVOID EXTREMES IN TEMPERATURE FREQUENCY: RN TO OPEN THE PATIENT WITHIN 24 HOURS OF DISCHARGE FROM THE HOSPITAL WITH [place]LEHEALTH [place] [facility] TO VISIT 2-3 X A WEEK FOR 4 WEEKS ESTABLISHED BY PATIENT NEEDS. LABORATORY: CBC, CMP TO BE DRAWN ON THE THIRD DAY HOME, 10/07/2016 (RAN STAT ) FAX RESULTS TO [phone]. PT/INR to be drawn on 10/07/16 with results faxed to Coumadin clinic for dosing. [phone] TELEHEALTH PARAMETERS: WEIGHT: NOTIFY MD OF WEIGHT GAIN OF 2 LBS IN 24 HOURS OR 5 LBS IN ONE WEEK HR: NOTIFY MD OF HR <55 BPM OR HR>100 BPM BP: NOTIFY MD IF BP <90/55 OR BP>140/100 O2 SAT: NOTIFY MD IF PO2<93% ON ROOM AIR SEND TELEHEALTH REPORT TO AWNING ASSEMBLER AND CARDIOVASCULAR SURGEON THE FIRST WEEK OF CARE AND THEN BI-WEEKLY. ADDITIONALLY PLEASE REPORT ANY ABNORMALS TO THE SURGEONS OFFICE. Plan - Discharge Summary New Discharge Prescriptions: Amiodarone [Cordarone] 200 mg PO BID #30 tab HYDROcodone/APAP 5-325MG [[place] 5-325] 1 - 2 tab PO Q6HR PRN #90 tab PRN Reason: Moderate Pain Itraconazole [Sporanox] 100 mg PO BID #60 capsule Metoprolol Tartrate [Lopressor] 12.5 mg PO BID #60 tab Discharge Medication List Aspirin 81 mg PO DAILY 11/14/14 [History] Levothyroxine Sodium [Synthroid] 150 mcg PO DAILY 11/15/14 [History] Furosemide [Lasix] 40 mg PO DAILY 09/22/16 [History] Potassium Chloride [K-Tab ER] 10 meq PO DAILY 09/22/16 [History] Amiodarone [Cordarone] 200 mg PO BID #30 tab 10/04/16 [Rx] HYDROcodone/APAP 5-325MG [[place] 5-325] 1 - 2 tab PO Q6HR PRN #90 tab 10/04/16 [ Rx] Itraconazole [Sporanox] 100 mg PO BID #60 capsule 10/04/16 [Rx] Metoprolol Tartrate [Lopressor] 12.5 mg PO BID #60 tab 10/04/16 [Rx] Multivitamins, Thera [Multivitamin (formulary)] 1 each PO DAILY@1200 tab [Rx] Warfarin [Coumadin] 5 mg PO DAILY #0 10/04/16 [Rx] Follow up Appointment(s)/Referral(s): Charisse Croft NPC [Nurse Practitioner] - 10/08/16 11:15 am Jamal Goodwin DO [Primary Care Provider] - 2 Weeks (Office will call with appointment time) Johnny Ramos MD [STAFF PHYSICIAN] - 2 Weeks Jae Riggs MD [STAFF PHYSICIAN] - 11/01/16 2:15 pm Augie Armando DO [Doctor of Osteopathic Medicine] - 10/22/16 1:15 pm [facility], [NON-STAFF] - 1 Week Dayami Guadarrama MD [STAFF PHYSICIAN] - 10/07/16 2:30 pm Ambulatory/Diagnostic Orders: Complete Blood Count w/diff [LAB.AMB] Time Frame: 3 Days, Facility: [facility], Location: Laboratory [facility] Comprehensive Metabolic Panel [LAB.AMB] Time Frame: 3 Days, Facility: [facility], Location: Laboratory [facility] Prothrombin Time INR [LAB.AMB] Time Frame: 3 Days, Facility: [facility] , Location: [facility] Activity/Diet/Wound Care/Special Instructions: DISCHARGE INSTRUCTIONS: 1. No driving for 4 weeks, or until physician gives their ok. 2. The patient should sleep in their own bed, no medical bed needed. 3. Stairs are not an issue. If the bedroom is upstairs, it is advised that the patient go up at night and down in the morning for the first week. Go slowly, using handrail and take 1 step at a time. 4. ORLIN hose are to be worn for 30 days or until physician discontinues. 5. Heart hugger is to be worn 100% of the time until physician discontinues.( except when showering) 6. No lifting, pushing, or pulling more than 10 pounds for 12 weeks. The physician will advise of any restriction changes. 7. The patient is expected to continue the prescribed walking program. 8. Continue pain control per as needed orders. 9. Continue with incentive spirometry and splinting/heart hugger until otherwise directed by the physician. 10. Must shower daily using liquid antibacterial soap and a separate white washcloth for each individual incision. 11. Routine sternal incision care. No lotions, powders, ointments on incisions. HOME HEALTH SERVICES TO PROVIDE: RN SKILLED HOME CARE SERVICES FOR POST-OP SURGICAL PATIENTS WITH THE FOLLOWING: Coronary Artery Bypass Surgery (CABG), Mitral Valve Replacement/ Repair ( MVR), Aortic Valve Replacement/Repair (AVR) RN TO CONTINUE EDUCATION FROM ``ROAD TO A HEALTH HEART PATIENT EDUCATION MANUAL (GIVEN TO PATIENT IN THE HOSPITAL) MEDICATION RECONCILIATION WITH EDUCATION NEEDED ON FIRST HOME VISIT EMPHASIZE IMPORTANCE OF WEARING HEART HUGGER ENCOURAGE USE OF INCENTIVE SPIROMETER 10 X EVERY HOUR WHILE AWAKE ENCOURAGE UTILIZATION OF LOWER EXTREMITY COMPRESSION STOCKINGS/ORLIN HOSE and ELEVATE LEGS ABOVE LEVEL OF HEART WHILE AT REST. ENCOURAGE AMBULATION 3-5x/day INCREASING TOLERATES, WHILE AVOID EXTREMES IN TEMPERATURE FREQUENCY: RN TO OPEN THE PATIENT WITHIN 24 HOURS OF DISCHARGE FROM THE HOSPITAL WITH [place]LEHEALTH [place] [facility] [place] TO VISIT 2-3 X A WEEK FOR 4 WEEKS ESTABLISHED BY PATIENT NEEDS. LABORATORY: CBC, CMP TO BE DRAWN ON THE THIRD DAY HOME, 10/07/2016 (RAN STAT ) FAX RESULTS TO [phone]. PT/INR to be drawn 10/07/16 with results faxed to cardiology coumadin clinic @ [phone]. TELEHEALTH PARAMETERS: WEIGHT: NOTIFY MD OF WEIGHT GAIN OF 2 LBS IN 24 HOURS OR 5 LBS IN ONE WEEK HR: NOTIFY MD OF HR <55 BPM OR HR>100 BPM BP: NOTIFY MD IF BP <90/55 OR BP>140/100 O2 SAT: NOTIFY MD IF PO2<93% ON ROOM AIR SEND TELEHEALTH REPORT TO AWNING ASSEMBLER AND CARDIOVASCULAR SURGEON THE FIRST WEEK OF CARE AND THEN BI-WEEKLY. PLEASE ADDITIONALLY COMMUNICATE ANY ABNORMALS AND NEW FINDINGS TO THE SURGEONS OFFICE. Discharge Disposition: HOME WITH HOME HEALTH SERVICES
--- NOTE | 2016-10-04 19:07 | PN ---
Mr. Stevenson is in sinus rhythm today. He is status post aortic valve replacement, mitral valve repair and MAZE procedure, doing well, hemodynamically stable, doing well with incentive spirometry. Vital signs are stable. S1, S2 heard normally. Short systolic murmur noted. Lungs reveal improved air entry. Abdomen and lower extremity exam is unchanged. Plan is to increase activity and possibly discharge him today. He is stable from a cardiac standpoint.
[2016-10-05] MEDS ORDERED: ASPIRIN 81 MG CHEW PO SCH (09:00)
== END 2016-10-04 16:20 | disposition home health service (06) | DRG 216 ==
LOC: CATHCVL 07:54 → 6SEL 09:49 → CATHCVL 09-25 11:44 → 6ICU 09-27 08:00 → 6SEL 10-01 15:28
PROVIDERS: ADMIT Thoracic Surgery (Cardiothoracic Vascular Surgery); ATTEND Thoracic Surgery (Cardiothoracic Vascular Surgery)
PROC: B2151ZZ Fluoroscopy of Left Heart using Low Osmolar Contrast (ICD-10-PCS; 2016-09-23)
PROC: B2111ZZ Fluoroscopy of Multiple Coronary Arteries using Low Osmolar Contrast (ICD-10-PCS; 2016-09-23)
PROC: 4A023N8 Measurement of Cardiac Sampling and Pressure, Bilateral, Percutaneous Approach (ICD-10-PCS; principal; 2016-09-23 09:00)
PROC: 4A09X1Z Measurement of Respiratory Capacity, External Approach (ICD-10-PCS; 2016-09-24)
PROC: 02UG0JZ Supplement Mitral Valve with Synthetic Substitute, Open Approach (ICD-10-PCS; 2016-09-27)
PROC: 02RF08Z Replacement of Aortic Valve with Zooplastic Tissue, Open Approach (ICD-10-PCS; 2016-09-27)
PROC: 02580ZZ Destruction of Conduction Mechanism, Open Approach (ICD-10-PCS; 2016-09-27)
PROC: 07B70ZX Excision of Thorax Lymphatic, Open Approach, Diagnostic (ICD-10-PCS; 2016-09-27)
PROC: 5A1221Z Performance of Cardiac Output, Continuous (ICD-10-PCS; 2016-09-27)
PROC: B246ZZ4 Ultrasonography of Right and Left Heart, Transesophageal (ICD-10-PCS; 2016-09-27)
PROC: 02570ZK Destruction of Left Atrial Appendage, Open Approach (ICD-10-PCS; 2016-09-27)
PROC: 30243K1 Transfusion of Nonautologous Frozen Plasma into Central Vein, Percutaneous Approach (ICD-10-PCS; 2016-09-27)
PROC: 30243R1 Transfusion of Nonautologous Platelets into Central Vein, Percutaneous Approach (ICD-10-PCS; 2016-09-27)
PROC: B44HZZZ Ultrasonography of Bilateral Lower Extremity Arteries (ICD-10-PCS; 2016-09-29)
DX: I08.0 Rheumatic disorders of both mitral and aortic valves (principal); B39.1 Chronic pulmonary histoplasmosis capsulati; E44.0 Moderate protein-calorie malnutrition; D69.6 Thrombocytopenia, unspecified; Z68.41 Body mass index [BMI] 40.0-44.9, adult; I27.2 Other secondary pulmonary hypertension; I48.0 Paroxysmal atrial fibrillation; J90 Pleural effusion, not elsewhere classified; I11.0 Hypertensive heart disease with heart failure; I50.9 Heart failure, unspecified; D62 Acute posthemorrhagic anemia; J98.11 Atelectasis; J44.9 Chronic obstructive pulmonary disease, unspecified; R73.09 Other abnormal glucose; R11.0 Nausea; R59.0 Localized enlarged lymph nodes; I49.3 Ventricular premature depolarization; E65 Localized adiposity; R53.81 Other malaise; I83.90 Asymptomatic varicose veins of unspecified lower extremity; E78.00 Pure hypercholesterolemia, unspecified; E89.0 Postprocedural hypothyroidism; E78.5 Hyperlipidemia, unspecified; R91.1 Solitary pulmonary nodule; M19.90 Unspecified osteoarthritis, unspecified site; E66.9 Obesity, unspecified; Z87.891 Personal history of nicotine dependence; Z85.850 Personal history of malignant neoplasm of thyroid; Z79.899 Other long term (current) drug therapy; Z79.82 Long term (current) use of aspirin; Z79.01 Long term (current) use of anticoagulants; Z82.49 Family history of ischemic heart disease and other diseases of the circulatory system; Z80.0 Family history of malignant neoplasm of digestive organs; Z96.652 Presence of left artificial knee joint; Z71.3 Dietary counseling and surveillance
CPT/HCPCS: 36430; 36620; 71010; 71020; 71260; 80048; 80051; 80053; 80061; 80074; 81003; 82330; 82565; 82805; 82810; 83036; 83735; 83880; 84100; 84132; 84439; 84443; 84520; 85018; 85025; 85027; 85520; 85610; 85730; 86850; 86891; 86900; 86901; 86920; 87070; 87075; 87086; 87205; 88305; 88307; 88312; 93005; 93453; 93880; 93923; 94002; 94150; 94640; 94760

== ENCOUNTER 2016-10-06 09:22 | Inpatient (IN) | payer MEDICARE, OTHER ==
[2016-10-06] MEDS ORDERED: FUROSEMIDE 10 MG/ML 4 ML VIAL IV STA (09:37)
--- NOTE | 2016-10-06 09:44 | ED ---
General Adult HPI - General Stated complaint: Chest Pain Time Seen by Provider: 10/06/16 09:25 Source: RN notes reviewed - History of Present Illness Initial comments: This is a 71-year-old male who presents emergency Department with a past medical history significant for a recent open heart surgery patient was discharged on Tuesday. Patient had a valve replacement. Patient comes in today after having what appeared to be a seizure to the . According to EMS when they arrived he was a little bit post ictal and slowly came around back to his baseline. However when he was fully alert and oriented patient was satting 88% and was having some difficulty breathing. When the patient arrived in the emergency department he was doing quite a bit of abdominal breathing and asthma. He short of breath he indicated that he was and he had not been short of breath before. Patient denied any recent fever. Patient denied any increase in his chest pain. Patient denies any back pain. Patient stated he had some sharp pains in his right arm. Patient states those pains have been since she's had surgery. Patient denies any abdominal pain. Patient noted some increase of leg swelling. Patient denied knowing what had occurred this morning. - Related Data Home Medications Medication Instructions Recorded Confirmed Aspirin 81 mg PO DAILY 11/14/14 10/06/16 Levothyroxine Sodium [Synthroid] 150 mcg PO DAILY 11/15/14 10/06/16 Furosemide [Lasix] 40 mg PO DAILY 09/22/16 10/06/16 Potassium Chloride [K-Tab ER] 10 meq PO DAILY 09/22/16 10/06/16 Multivitamins, Thera [Multivitamin 1 tab PO DAILY@1200 10/06/16 10/06/16 (formulary)] Warfarin [Coumadin] 7.5 mg PO DAILY 10/06/16 10/06/16 Previous Rx's Medication Instructions Recorded Amiodarone [Cordarone] 200 mg PO BID #30 tab 10/04/16 HYDROcodone/APAP 5-325MG [[place] 1 - 2 tab PO Q6HR PRN #90 tab 10/04/16 5-325] Itraconazole [Sporanox] 100 mg PO BID #60 capsule 10/04/16 Metoprolol Tartrate [Lopressor] 12.5 mg PO BID #60 tab 10/04/16 Allergies Allergy/AdvReac Type Severity Reaction Status Date / Time No Known Allergies Allergy Verified 10/06/16 10:22 Review of Systems ROS Statement: Those systems with pertinent positive or pertinent negative responses have been documented in the HPI. ROS Other: All systems not noted in ROS Statement are negative. Past Medical History Past Medical History: Atrial Fibrillation, Cancer, Heart Failure, Hyperlipidemia , Osteoarthritis (OA), Thyroid Disorder Additional Past Medical History / Comment(s): THYROID CANCER ,SEE DR FLORES 'S H&P, varicose veins, "fluid in lungs", rheumatic fever, paroxysmal atrial fibrillation, aortic valve insufficiency, mitral valve regurgitation, moderate pulmonary hypertension History of Any Multi-Drug Resistant Organisms: None Reported Past Surgical History: Joint Replacement Additional Past Surgical History / Comment(s): thyroidectomy, total left knee replacement, JAYDE, aortic valve replacement with bovine valve, mitral valve repair, mediastinal lymph node biopsy Past Anesthesia/Blood Transfusion Reactions: No Reported Reaction Past Psychological History: No Psychological Hx Reported Additional Psychological History / Comment(s): . Smoking Status: Former smoker Past Alcohol Use History: Rare Additional Past Alcohol Use History / Comment(s): SMOKED 3 PPD. Started smoking in 1959 and QUIT SMOKING 1979. Pt smoked cigars on and off from 1991 until 1999. He denies any medical marijuana, marijuana, street drug use. He states he has not had any alcohol intake for the past 3 months. He usually drinks 0-2 alcoholic beverages per day. He has traveled in the past in [place], [place] , [place], [facility], [place] and [place]. He has worked in the past at [employer]. Past Drug Use History: None Reported - Past Family History Father Family Medical History: Coronary Artery Disease (CAD) Additional Family Medical History / Comment(s): Father of "heart problems" at the age of 76yrs. Mother Family Medical History: No Reported History Additional Family Medical History / Comment(s): Mother at the age of 92yrs. VARICOSE VEINS Brother(s) Family Medical History: Cancer Additional Family Medical History / Comment(s): LIVER CA. BLOOD CLOT. General Exam - General Exam Comments Initial Comments: GENERAL: Patient is well-developed and well-nourished. Patient is nontoxic and well- hydrated and is in moderate distress. ENT: Neck is soft and supple. No significant lymphadenopathy is noted. Oropharynx is clear. Moist mucous membranes. EYES: The sclera were anicteric and conjunctiva were pink and moist. Extraocular movements were intact and pupils were equal round and reactive to light. Eyelids were unremarkable. PULMONARY: Patient has diminished breath sounds bilateral bases. CARDIOVASCULAR: Patient's heart rate was irregular and tachycardic.. ABDOMEN: Soft and nontender with normal bowel sounds. SKIN: Skin is clear with no lesions or rashes and otherwise unremarkable. NEUROLOGIC: Patient is alert and oriented x3. Cranial nerves II through XII are grossly intact. Motor and sensory are also intact. Normal speech, volume and content. Symmetrical smile. MUSCULOSKELETAL: Normal extremities with adequate strength and full range of motion. 2+ edema bilaterally LYMPHATICS: No significant lymphadenopathy is noted PSYCHIATRIC: Normal psychiatric evaluation. Normal interpersonal interactions appears functionally intact in deals appropriately with others. No signs of depression. No signs of anxiety. Course Vital Signs 10/06/16 09:50 Temperature 98.3 F Pulse Rate 141 H Respiratory 24 Rate Blood Pressure 153/96 O2 Sat by Pulse 97 Oximetry Medical Decision Making - Medical Decision Making EKG shows atrial fibrillation with rapid ventricular response at 124 bpm QRS is 90 QT interval 388 QTC is 557. Patient has a history of atrial fibrillation. CT of the brain shows no acute mallet. Chest x-ray shows pulmonary edema. Because the patient's high white count which is elevated since 2 days ago. I started the patient prophylactic on antibiotics. I gave the patient Zosyn. I was in contact with the nurse practitioner for Dr. Riggs she agreed that the patient needed to be admitted and admitted to Dr. Riggs. Patient also has some acute renal failure that was not present when he was discharged 2 days ago. - Lab Data Result diagrams: 10/06/16 09:50 10/06/16 09:50 Lab Results 10/06/16 10/06/16 10/06/16 Range/Units 09:50 09:50 09:50 WBC 24.6 H (3.8-10.6) k/uL RBC 2.95 L (4.30-5.90) m/uL Hgb 9.2 L (13.0-17.5) gm/dL Hct 27.2 L (39.0-53.0) % MCV 92.3 (80.0-100.0) fL MCH 31.2 (25.0-35.0) pg MCHC 33.8 (31.0-37.0) g/dL RDW 17.9 H (11.5-15.5) % Plt Count 400 (150-450) k/uL Neutrophils % 91 % Lymphocytes % 4 % Monocytes % 3 % Eosinophils % 1 % Basophils % 0 % Neutrophils # 22.5 H (1.3-7.7) k/uL Lymphocytes # 0.9 L (1.0-4.8) k/uL Monocytes # 0.8 (0-1.0) k/uL Eosinophils # 0.2 (0-0.7) k/uL Basophils # 0.0 (0-0.2) k/uL Hypochromasia Slight Anisocytosis Slight PT (9.0-12.0) sec INR (<1.1) APTT (22.0-30.0) sec Sodium 133 L (137-145) mmol/L Potassium 4.4 (3.5-5.1) mmol/L Chloride 94 L (98-107) mmol/L Carbon Dioxide 24 (22-30) mmol/L Anion Gap 15 mmol/L BUN 57 H (9-20) mg/dL Creatinine 2.66 H (0.66-1.25) mg/dL Est GFR (MDRD) Af Amer 29 (>60 ml/min/1.73 sqM) Est GFR (MDRD) Non-Af 24 (>60 ml/min/1.73 sqM) Glucose 121 H (74-99) mg/dL Plasma Lactic Acid Samir (0.7-2.0) mmol/L Calcium 7.0 L (8.4-10.2) mg/dL Magnesium 2.3 (1.6-2.3) mg/dL Total Bilirubin 1.4 H (0.2-1.3) mg/dL AST 47 (17-59) U/L ALT 47 (21-72) U/L Alkaline Phosphatase 77 (38-126) U/L Total Creatine Kinase 736 H (55-170) U/L CK-MB (CK-2) 7.2 H* (0.0-2.4) ng/mL CK-MB (CK-2) Rel Index 1.0 Troponin I 1.510 H* (0.000-0.034) ng/mL Total Protein 6.0 L (6.3-8.2) g/dL Albumin 3.2 L (3.5-5.0) g/dL TSH 32.400 H (0.465-4.680) mIU/L Free T4 0.88 (0.78-2.19) ng/dL 10/06/16 10/06/16 Range/Units 09:50 09:50 WBC (3.8-10.6) k/uL RBC (4.30-5.90) m/uL Hgb (13.0-17.5) gm/dL Hct (39.0-53.0) % MCV (80.0-100.0) fL MCH (25.0-35.0) pg MCHC (31.0-37.0) g/dL RDW (11.5-15.5) % Plt Count (150-450) k/uL Neutrophils % % Lymphocytes % % Monocytes % % Eosinophils % % Basophils % % Neutrophils # (1.3-7.7) k/uL Lymphocytes # (1.0-4.8) k/uL Monocytes # (0-1.0) k/uL Eosinophils # (0-0.7) k/uL Basophils # (0-0.2) k/uL Hypochromasia Anisocytosis PT 24.5 H (9.0-12.0) sec INR 2.5 (<1.1) APTT 32.8 H (22.0-30.0) sec Sodium (137-145) mmol/L Potassium (3.5-5.1) mmol/L Chloride (98-107) mmol/L Carbon Dioxide (22-30) mmol/L Anion Gap mmol/L BUN (9-20) mg/dL Creatinine (0.66-1.25) mg/dL Est GFR (MDRD) Af Amer (>60 ml/min/1.73 sqM) Est GFR (MDRD) Non-Af (>60 ml/min/1.73 sqM) Glucose (74-99) mg/dL Plasma Lactic Acid Samir 2.0 (0.7-2.0) mmol/L Calcium (8.4-10.2) mg/dL Magnesium (1.6-2.3) mg/dL Total Bilirubin (0.2-1.3) mg/dL AST (17-59) U/L ALT (21-72) U/L Alkaline Phosphatase (38-126) U/L Total Creatine Kinase (55-170) U/L CK-MB (CK-2) (0.0-2.4) ng/mL CK-MB (CK-2) Rel Index Troponin I (0.000-0.034) ng/mL Total Protein (6.3-8.2) g/dL Albumin (3.5-5.0) g/dL TSH (0.465-4.680) mIU/L Free T4 (0.78-2.19) ng/dL Critical Care Time Critical Care Time: Yes Total Critical Care Time: 35 Disposition Clinical Impression: Acute renal failure, Acute pulmonary edema, Neutrophilic leukocytosis Disposition: ADMITTED IP TO THIS [facility] Time of Disposition: 11:12
[2016-10-06 10:23] LABS: INR 2.5 (<1.1); Partial Thromboplastin Time 32.8 sec (22.0-30.0); Prothrombin Time 24.5 sec (9.0-12.0)
--- NOTE | 2016-10-06 10:23 | XR ---
EXAMINATION TYPE: XR chest 2V DATE OF EXAM: 10/06/2016 10:14 AM COMPARISON: Chest x-ray 2 days ago HISTORY: History of open-heart and aortic as well as mitral valve repair presents with difficulty in breathing. TECHNIQUE: Frontal and lateral views of the chest are obtained. FINDINGS: Sternal wires are redemonstrated. There is persistent cardiomegaly with mild to moderate ce ntral vascular congestion and small to moderate-sized bilateral pleural effusions. Metallic aortic va lve and mitral valvular ring are redemonstrated. Low Lung volumes are again seen. Osseous structures are intact. IMPRESSION: Findings consistent with CHF exacerbation redemonstrated as there is cardiomegaly with mi ld to moderate central vascular congestion and small to moderate-sized bilateral pleural effusions al l redemonstrated.
[2016-10-06 10:27] LABS: Magnesium 2.3 mg/dL (1.6-2.3); Potassium 4.4 mmol/L (3.5-5.1); Total Bilirubin 1.4 mg/dL (0.2-1.3)
[2016-10-06 10:34] LABS: Anisocytosis Slight; Basophils % (A) 0 %; CH 30.1; CHCM 32.8; Eosinophils # (A) 0.2 k/uL (0-0.7); Eosinophils % (A) 1 %; HCT 27.2 % (39.0-53.0); HDW 3.37; HGB 9.2 gm/dL (13.0-17.5); Hypochromasia Slight; Luc # (Auto) 0.27; Luc % (Auto) 1; Lymphocytes # (A) 0.9 k/uL (1.0-4.8); Lymphocytes % (A) 4 %; MCH 31.2 pg (25.0-35.0); MCHC 33.8 g/dL (31.0-37.0); MCV 92.3 fL (80.0-100.0); Mean Platelet Volume 7.7; Monocytes # (A) 0.8 k/uL (0-1.0); Monocytes % (A) 3 %; Neutrophils # (A) 22.5 k/uL (1.3-7.7); Neutrophils % (A) 91 %; RBC 2.95 m/uL (4.30-5.90); RDW 17.9 % (11.5-15.5); WBC 24.6 k/uL (3.8-10.6); WBC (Perox) 25.01
[2016-10-06 10:58] LABS: Creatine Kinase MB 7.2 ng/mL (0.0-2.4); Troponin I 1.51 ng/mL (0.000-0.034)
--- NOTE | 2016-10-06 11:01 | CT ---
EXAMINATION TYPE: CT brain wo con DATE OF EXAM: 10/06/2016 10:57 AM HISTORY: Possible seizure. Difficulty breathing. CT DLP: 2180.8 mGycm. Automated Exposure Control for Dose Reduction was Utilized. TECHNIQUE: CT scan of the head is performed without contrast. COMPARISON: None. FINDINGS: Exam is degraded by respiratory motion artifact despite repeated attempts. There is no ac tolowa dee-ni' intracranial hemorrhage or midline shift identified. There is diffuse ventricular and sulcal prom inence consistent with diffuse age-related cerebral atrophy. There is low-attenuation in the periven tricular white matter presumed on basis of product of chronic small vessel ischemic change in patient of this age. The globes are intact and the visualized sinuses are clear. IMPRESSION: No acute intracranial hemorrhage or midline shift. There is mild to moderate diffuse ag e-related cerebral atrophy and severe chronic small vessel ischemic change noted.
[2016-10-06] MEDS ORDERED: NITROGLYCERIN OINT 1 INCH/GM PACKET TOPICAL STA (11:04)
[2016-10-06] MEDS ORDERED: PIPERACILLIN-TAZOBACTAM 3.375 GM in DEXTROSE/WATER 1 50ML.BAG IVPB STA (11:10)
[2016-10-06] MEDS ORDERED: DEXTROSE 5% IN WATER 100 ML with AMIODARONE 150 MG IV ONE (12:45)
[2016-10-06] MEDS ORDERED: LORazepam 2 MG/ML SYRINGE IV STA ×2 (13:34→18:39)
[2016-10-06] MEDS ORDERED: IPRATROPIUM-ALBUTEROL 3 ML NEB INHALATION PRN (15:59)
[2016-10-06] MEDS ORDERED: FUROSEMIDE 10 MG/ML 4 ML VIAL IV SCH (16:00)
[2016-10-06] MEDS ORDERED: AMIODARONE 200 MG TAB PO STA (16:00)
[2016-10-06] MEDS ORDERED: METOPROLOL SUCCINATE (ER) 50 MG TAB.ER.24H PO STA (16:01)
[2016-10-06] MEDS: AMIODARONE 200 MG TAB PO SCH ×2 (16:38→22:45)
[2016-10-06] MEDS ORDERED: BISACODYL 10 MG SUPP RECTAL PRN (16:41)
[2016-10-06] MEDS ORDERED: NALOXONE 0.4 MG/ML 1 ML VIAL IV PRN (16:41)
--- NOTE | 2016-10-06 17:25 | XR ---
EXAMINATION TYPE: XR abdomen 1V DATE OF EXAM: 10/06/2016 5:03 PM COMPARISON: NONE HISTORY: Pain TECHNIQUE: Single supine KUB image of the abdomen is obtained FINDINGS: Small bowel demonstrates mild distention which is nonspecific and may reflect ileus. Gas and fecal material is seen in non-distended colon. No convincing evidence for pneumoperitoneum. No unusual calcifications. The lung bases are clear. The osseous structures are intact. IMPRESSION: 1. Overall nonobstructive bowel gas pattern.
[2016-10-06] MEDS ORDERED: IV VANCOMYCIN PER PHARMACY 1 EACH MISC MISCELLANE PRN (18:12)
--- NOTE | 2016-10-06 18:27 | P.GSHP ---
History of Present Illness H&P Date: 10/06/16 Chief Complaint: Seizure-like symptoms, shortness of breath This 71-year-old gentleman was recently discharged 2 days ago from [facility] after aortic valve replacement/mitral valve repair, mediastinal lymph node biopsy. This morning the patient's called to say the patient had what she believed to be a seizure which lasted approximately 1 minute with the patient went completely stiff, was shaking all over, and was staring blankly, after which he appeared to be a little dazed and confused. She proceeded to call 911 and the patient was brought in to the emergency room. As he is being evaluated he was progressively short of breath, was requiring 4 L nasal cannula oxygen, and was thought to have acute heart failure. He also is in atrial fibrillation with rapid ventricular response with his heart rate in the 120s, he has a previous history of paroxysmal atrial fibrillation. He denied any chest pain, nausea, vomiting, fever, abdominal pain. He is unable to lie flat, and requires sitting straight up in bed in order to be able to breathe. - Review of Systems Comment: 14 point review systems was completed and was negative except as noted - Cardiovascular Cardiovascular: Reports as per HPI - Respiratory Respiratory: Reports as per HPI - Gastrointestinal Gastrointestinal: Reports as per HPI - Neurological Neurological: Reports as per HPI - Psychiatric Comment: Patient has been more angry/agitated recently per . Past Medical History Past Medical History: Atrial Fibrillation, Cancer, Heart Failure, Hyperlipidemia , Osteoarthritis (OA), Thyroid Disorder Additional Past Medical History / Comment(s): Current mediastinal lymphadenopathy with histoplasmosis being tx with ABX by Dr. Ramos, THYROID CANCER with surgery/radiation, varicose veins, rheumatic fever, paroxysmal atrial fibrillation, aortic valve insufficiency and mitral valve regurgitation- recent valvular surgery, moderate pulmonary hypertension History of Any Multi-Drug Resistant Organisms: None Reported Past Surgical History: Cardiac Valve Replacement, Heart Catheterization, Joint Replacement Additional Past Surgical History / Comment(s): thyroidectomy, total left knee replacement, 08/2016cardiac cath/fabiola, 09/29/16 aortic valve replacement with bovine valve, mitral valve repair, mediastinal lymph node biopsy, colonoscopies/ polypectomy-benign. Past Anesthesia/Blood Transfusion Reactions: No Reported Reaction Past Psychological History: No Psychological Hx Reported Additional Psychological History / Comment(s): Pt resides with his spouse. He has [facility]. He uses no assistive device. He has not driven since cardiac valve surgery, his spouse does the driving. Smoking Status: Former smoker Past Alcohol Use History: Rare Additional Past Alcohol Use History / Comment(s): SMOKED 3 PPD. Started smoking in 1959 and QUIT SMOKING 1979. Pt smoked cigars on and off from 1991 until 1999. He denies any medical marijuana, marijuana, street drug use. He states he has not had any alcohol intake for the past 3 months. He usually drinks 0-2 alcoholic beverages per day. He has traveled in the past in [place], [place] , [place], [facility], [place] and [place]. He has worked in the past at [employer]. Past Drug Use History: None Reported - Past Family History Father Family Medical History: Coronary Artery Disease (CAD) Additional Family Medical History / Comment(s): Father at 76yrs from heart problems. Mother Family Medical History: No Reported History Additional Family Medical History / Comment(s): Mother at the age of 92 yrs. She had varicose veins Brother(s) Family Medical History: Cancer Additional Family Medical History / Comment(s): LIVER CA. BLOOD CLOT. Medications and Allergies Home Medications Medication Instructions Recorded Confirmed Type Aspirin 81 mg PO DAILY 11/14/14 10/06/16 History Levothyroxine Sodium [Synthroid] 150 mcg PO DAILY 11/15/14 10/06/16 History Furosemide [Lasix] 40 mg PO DAILY 09/22/16 10/06/16 History Potassium Chloride [K-Tab ER] 10 meq PO DAILY 09/22/16 10/06/16 History Multivitamins, Thera [Multivitamin 1 tab PO DAILY@1200 10/06/16 10/06/16 History (formulary)] Warfarin [Coumadin] 7.5 mg PO DAILY 10/06/16 10/06/16 History Allergies Allergy/AdvReac Type Severity Reaction Status Date / Time No Known Allergies Allergy Verified 10/06/16 10:22 Surgical - Exam Vital Signs Temp Pulse Resp BP Pulse Ox 98.3 F 141 H 24 153/96 97 10/06/16 09:50 10/06/16 09:50 10/06/16 09:50 10/06/16 09:50 10/06/16 09:50 - General well developed, well nourished, moderate distress, obese - Eyes PERRL, normal ocular movement - Neck no masses, no bruits, trachea midline thyroid nodule: absent, carotid bruit: absent - Respiratory Lungs sounds very diminished with faint expiratory wheezes heard in the bases. Respirations labored with a rate in the 20s. Requiring 6 L nasal cannula. - Cardiovascular S1, S2 present. Tachycardic rate, irregular rhythm, atrial fibrillation on telemetry. 3-4+ pitting edema to lower extremities bilaterally. Sternum stable. - Abdomen Hypoactive bowel sounds. Abdomen: soft, non tender, distended - Genitourinary No void after 40 mg IV Lasix given. Duong inserted with 50 mL concentrated urine output. - Integumentary Anterior chest incision well approximated. - Neurologic normal coordination - Musculoskeletal Equal strength bilaterally. - Psychiatric oriented to time, oriented to person, oriented to place, speech is normal Witnessed activity were patient became very stiff and had a blank stare, which only lasted for a few seconds. Results - Labs 10/06/16 09:50 10/06/16 09:50 Abnormal Lab Results - Last 24 Hours (Table) 10/06/16 Range/Units 16:39 Plasma Lactic Acid Samir 2.8 H* (0.7-2.0) mmol/L - Imaging Chest x-ray: report reviewed, image reviewed Abdominal x-ray: image reviewed Assessment and Plan (1) Status post aortic valve replacement Status: Acute (2) Status post mitral valve repair Status: Acute (3) Acute renal failure Status: Acute (4) Neutrophilic leukocytosis Status: Acute (5) Atrial fibrillation with RVR Status: Acute (6) Histoplasmosis Status: Acute (7) Hypercholesterolemia Status: Acute (8) Hypertension Status: Acute (9) Hypothyroidism (acquired) Status: Acute (10) Obesity Status: Acute (11) Paroxysmal atrial fibrillation Status: Acute Plan: 1. Admit to ICU 2. Consults placed for pulmonology/television parts tester, cardiology, infectious disease , neurology. Appreciate recommendations. 3. IV bolus amiodarone given for atrial fibrillation, patient placed on oral amiodarone and Lopressor for rate control. 4. Discussed case with pulmonology, including lactic acid level and findings of diagnostic so far. Recommended IV Zosyn, vancomycin, and placement in the intensive care unit. 5. Will hold Coumadin for today as INR is 2.5. We will readdress in the morning. 6. Echo ordered, however patient unable to tolerate laying flat. Will retry in the morning. 7. Encourage incentive spirometry. 8. Patient to wear Heart Hugger. 9. Strict I/O, daily weights. 10. More recommendations as patient progresses. Time with Patient: Greater than 30
[2016-10-06] MEDS: NITROGLYCERIN OINT 1 INCH/GM PACKET TOPICAL SCH (18:56)
[2016-10-06] MEDS: SODIUM CHLORIDE 0.9% 1,000 ML IV SCH (18:58)
[2016-10-06] MEDS: IPRATROPIUM-ALBUTEROL 3 ML NEB INHALATION SCH ×2 (18:59→23:48)
[2016-10-06 19:13] LABS: Amorphous Sediment,Urine Occasional /hpf; Appearance,Urine Cloudy (Clear); Bilirubin,Urine 1+ (Negative); Calcium Oxalate Crystals,Urine Occasional /hpf; Glucose,Urine (UA) Negative (Negative); Ketones,Urine Negative (Negative); Leukocyte Esterase,Urine Negative (Negative); Mucus,Urine Rare /hpf; Nitrite,Urine Negative (Negative); Particle Count 15859; Protein,Urine Trace (Negative); Specific Gravity,Urine 1.018 (1.001-1.035); Squamous Epithelial Cell,Urine 2 /hpf (0-4); UA Billing (MACRO vs. MICRO) MICRO; WBC,Urine 10 /hpf (0-5)
[2016-10-06 19:23] LABS: Glucose,Whole Blood 168 mg/dL (75-99)
[2016-10-06] MEDS ORDERED: VANCOMYCIN 2,000 MG in SODIUM CHLORIDE 0.9% 500 ML IVPB ONE (20:00)
[2016-10-06 20:24] LABS: ABG HCO3 21 mmol/L (21-25); ABG PCO2 31 mmHg (35-45); ABG PH 7.46 (7.35-7.45); ABG PO2 68 mmHg (83-108); ABG TCO2 22 mmol/L (19-24)
--- NOTE | 2016-10-06 20:28 | XR ---
EXAMINATION TYPE: XR chest 1V portable DATE OF EXAM: 10/06/2016 8:23 PM COMPARISON: 10/06/2016 HISTORY: SOB, Follow Up FINDINGS: Endotracheal tube is approximately 1.2 cm from the linwood and should be pulled back 2 cm. NG tube is seen coursing towards into the stomach. Again noted are features of congestive failure which include pulmonary venous congestion scattered in filtrates as well as pleural effusions and cardiomegaly. IMPRESSION: 1. Endotracheal tube should be pulled back at least 2 cm. 2. Stable features of congestive failure.
--- NOTE | 2016-10-06 20:29 | XR ---
EXAMINATION TYPE: XR abdomen 1V DATE OF EXAM: 10/06/2016 8:24 PM COMPARISON: 10/06/2016 HISTORY: Pain TECHNIQUE: Single supine KUB image of the abdomen is obtained left upper quadrant only image. FINDINGS: NG tube is seen within the stomach. Left basilar pleural effusions and scattered infiltrates seen. Vi sualized bowel gas pattern is unremarkable. IMPRESSION: 1. No significant changes from prior examination.
[2016-10-06] MEDS: PROPOFOL 500 MG in EMPTY BAG 1 BAG IV SCH (20:39)
[2016-10-06 20:42] LABS: ABG Base Excess -1.7 mmol/L; ABG HCO3 25 mmol/L (21-25); ABG PCO2 58 mmHg (35-45); ABG PH 7.25 (7.35-7.45); ABG PO2 73 mmHg (83-108); ABG TCO2 26 mmol/L (19-24)
[2016-10-06 20:58] LABS: Glucose,Whole Blood 164 mg/dL (75-99)
[2016-10-06] MEDS ORDERED: METOPROLOL TARTRATE 12.5 MG TAB PO SCH (21:00)
[2016-10-06] MEDS ORDERED: DOCUSATE 100 MG CAP PO SCH (21:00)
[2016-10-06 21:10] LABS: Magnesium 2.4 mg/dL (1.6-2.3); Phosphorous 7.1 mg/dL (2.5-4.5); Potassium 4.9 mmol/L (3.5-5.1); Total Bilirubin 1.3 mg/dL (0.2-1.3); Total Protein 5.7 g/dL (6.3-8.2)
[2016-10-06 21:14] LABS: Calcium 6.5 mg/dL (8.4-10.2)
[2016-10-06] MEDS: NOREPINEPHRIN 4 MG-0.9% NS PMX 4 MG/250 ML ML IV SCH (21:20)
[2016-10-06] MEDS: PIPERACILLIN-TAZOBACTAM 3.375 GM in DEXTROSE/WATER 1 50ML.BAG IVPB SCH (21:22)
[2016-10-06 21:26] LABS: Anisocytosis Slight; Basophils # (A) 0.1 k/uL (0-0.2); Basophils % (A) 0 %; CH 30.2; Eosinophils # (A) 0.1 k/uL (0-0.7); Eosinophils % (A) 0 %; HCT 26.3 % (39.0-53.0); HDW 3.18; HGB 8.2 gm/dL (13.0-17.5); Hypochromasia Slight; Luc # (Auto) 0.32; Luc % (Auto) 1; Lymphocytes # (A) 1.1 k/uL (1.0-4.8); Lymphocytes % (A) 3 %; MCH 29.7 pg (25.0-35.0); MCHC 31.2 g/dL (31.0-37.0); MCV 95.1 fL (80.0-100.0); Macrocytosis Slight; Mean Platelet Volume 7.8; Monocytes % (A) 3 %; Neutrophils # (A) 29.3 k/uL (1.3-7.7); Neutrophils % (A) 92 %; RBC 2.77 m/uL (4.30-5.90); RDW 17.8 % (11.5-15.5); WBC (Perox) 31.49
[2016-10-06 21:32] LABS: WBC 31.9 k/uL (3.8-10.6)
[2016-10-06 21:54] LABS: Manual Review Performed; Polychromasia Present
[2016-10-06 21:55] LABS: Large Platelets Present; Ovalocytes Present
--- NOTE | 2016-10-06 22:36 | P.CONS ---
History of Present Illness - Reason for Consult Consult date: 10/06/16 - Chief Complaint Progressive shortness of breath - History of Present Illness This is a 71-year-old male who came in the hospital on September 23 and underwent a FABIOLA and heart catheterization showing a ruptured chordae tendonae, mitral regurgitation, moderate pulmonary hypertension, with history of paroxysmal atrial fibrillation and heart failure. 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 With this the patient was initiated to itraconazole. He however developed atrial fibrillation. Because of this he was initiated to amiodarone. The dose of itraconazole was reduced by 50%. There is no evidence of any ulcerations of the QT interval while he was in hospital. He eventually was discharged home. It is related that he was not able to obtain the itraconazole. In this is going to be addressed in the coming days. However the brought him to the emergency room feeling very short of breath. He was having abdominal distention with increasing shortness of breath. Through his stay in emergency center he continues to feel more more short of breath. He was Intensive care unit. There are there was evidence of respiratory failure. ABG was performed that showed evidence of a low PaO2. Anesthesia was called and the patient was intubated. After intubation he settles and had improved oxygenation. With concerns to underlying infection pressure was requested. Review of Systems ROS unobtainable: due to endotracheal tube Past Medical History Past Medical History: Atrial Fibrillation, Cancer, Heart Failure, Hyperlipidemia , Osteoarthritis (OA), Thyroid Disorder Additional Past Medical History / Comment(s): Current mediastinal lymphadenopathy with histoplasmosis being tx with ABX by Dr. Ramos, THYROID CANCER with surgery/radiation, varicose veins, rheumatic fever, paroxysmal atrial fibrillation, aortic valve insufficiency and mitral valve regurgitation- recent valvular surgery, moderate pulmonary hypertension History of Any Multi-Drug Resistant Organisms: None Reported Past Surgical History: Cardiac Valve Replacement, Heart Catheterization, Joint Replacement Additional Past Surgical History / Comment(s): thyroidectomy, total left knee replacement, 08/2016cardiac cath/fabiola, 09/29/16 aortic valve replacement with bovine valve, mitral valve repair, mediastinal lymph node biopsy, colonoscopies/ polypectomy-benign. Past Anesthesia/Blood Transfusion Reactions: No Reported Reaction Past Psychological History: No Psychological Hx Reported Additional Psychological History / Comment(s): Pt resides with his spouse. He has [facility] home care. He uses no assistive device. He has not driven since cardiac valve surgery, his spouse does the driving.SMOKED 3 PPD. Started smoking in 1959 and QUIT SMOKING 1979. Pt smoked cigars on and off from 1991 until 1999. He denies any medical marijuana, marijuana, street drug use. He states he has not had any alcohol intake for the past 3 months. He usually drinks 0-2 alcoholic beverages per day. He has traveled in the past in [place] , [place], [place], [facility], [place] and [place]. He has worked in the past at [employer]. Smoking Status: Former smoker Past Alcohol Use History: Rare Additional Past Alcohol Use History / Comment(s): SMOKED 3 PPD. Started smoking in 1959 and QUIT SMOKING 1979. Pt smoked cigars on and off from 1991 until 1999. He denies any medical marijuana, marijuana, street drug use. He states he has not had any alcohol intake for the past 3 months. He usually drinks 0-2 alcoholic beverages per day. He has traveled in the past in [place], [place] , [place], [facility], [place] and [place]. He has worked in the past at [employer]. Past Drug Use History: None Reported - Past Family History Father Family Medical History: Coronary Artery Disease (CAD) Additional Family Medical History / Comment(s): Father at 76yrs from heart problems. Mother Family Medical History: No Reported History Additional Family Medical History / Comment(s): Mother at the age of 92 yrs. She had varicose veins Brother(s) Family Medical History: Cancer Additional Family Medical History / Comment(s): LIVER CA. BLOOD CLOT. Medications and Allergies Home Medications and Allergies Comment(s): Current Medications Hydrocodone Bitart/Acetaminophen ([place] 5-325) 1 each PO Q4HR PRN PRN Reason: Mild Pain Albuterol/Ipratropium (Duoneb 0.5 Mg-3 Mg/3 Ml Soln) 3 ml INHALATION RT-Q2H PRN PRN Reason: Dyspnea Last Admin: 10/06/16 16:12 Dose: 3 ml Albuterol/Ipratropium (Duoneb 0.5 Mg-3 Mg/3 Ml Soln) 3 ml INHALATION RT-Q4H STEVAN Last Admin: 10/06/16 18:59 Dose: 3 ml Amiodarone HCl (Cordarone) 200 mg PO BID [facility] Aspirin (Aspirin) 81 mg PO DAILY [facility] Bisacodyl (Dulcolax) 10 mg RECTAL DAILY PRN PRN Reason: Constipation Chlorhexidine Gluconate (Peridex) 15 ml MUCOUS MEM BID [facility] Docusate Sodium (Colace) 100 mg PO BID [facility] Furosemide (Lasix) 40 mg IV Q12HR [facility] Piperacillin/Tazobactam/ (Dextrose 3.375 gm/ IV Solution) 50 mls @ 12.5 mls/hr IVPB Q8H [facility] Last Admin: 10/06/16 21:22 Dose: 12.5 mls/hr Sodium Chloride (Saline 0.9%) 1,000 mls @ 20 mls/hr IV .Q24H [facility] Last Admin: 10/06/16 18:58 Dose: 75 mls/hr Vancomycin HCl 2,000 mg/ (Sodium Chloride) 500 mls @ 167 mls/hr IVPB ONCE ONE Stop: 10/06/16 22:59 Last Admin: 10/06/16 18:53 Dose: 167 mls/hr Propofol 500 mg/ IV Solution 50 mls @ 0 mls/hr IV .Q0M [facility]; Titrate PRN Reason: Protocol Last Titration: 10/06/16 21:25 Dose: 35 mcg/kg/min, 24.76 mls/hr Norepinephrine Bitartrate (Levophed-0.9% Nacl 4 Mg/250ml Pmx) 4 mg in 250 mls @ 0 mls/hr IV .Q0M [facility]; Titrate PRN Reason: Protocol Vancomycin HCl 1,750 mg/ (Sodium Chloride) 250 mls @ 125 mls/hr IVPB Q48H [facility] Levothyroxine Sodium (Synthroid) 150 mcg PO DAILY@0630 [facility] Metoprolol Tartrate (Lopressor) 12.5 mg PO BID [facility] Miscellaneous Information (Pharmacy To Dose Iv Vancomycin) 1 each MISCELLANE DIRECTED PRN PRN Reason: Per Protocol Nitroglycerin (Nitro-Bid Oint) 1 inch TOPICAL Q6HR [facility] Last Admin: 10/06/16 18:56 Dose: 1 inch Pantoprazole Sodium (Protonix) 40 mg PO AC-BRKFST [facility] Senna (Senokot) 17.2 mg PO [facility] Home Medications Medication Instructions Recorded Confirmed Type Aspirin 81 mg PO DAILY 11/14/14 10/06/16 History Levothyroxine Sodium [Synthroid] 150 mcg PO DAILY 11/15/14 10/06/16 History Furosemide [Lasix] 40 mg PO DAILY 09/22/16 10/06/16 History Potassium Chloride [K-Tab ER] 10 meq PO DAILY 09/22/16 10/06/16 History Multivitamins, Thera [Multivitamin 1 tab PO DAILY@1200 10/06/16 10/06/16 History (formulary)] Warfarin [Coumadin] 7.5 mg PO DAILY 10/06/16 10/06/16 History Allergies Allergy/AdvReac Type Severity Reaction Status Date / Time No Known Allergies Allergy Verified 10/06/16 10:22 Physical Exam Vitals: Vital Signs Temp Pulse Resp BP Pulse Ox 10/06/16 19:24 98.5 F 111 H 24 133/85 90 L 10/06/16 19:04 120 H 10/06/16 18:00 110 H 22 135/83 92 L 10/06/16 16:22 128 H 10/06/16 16:13 127 H 10/06/16 14:02 119 H 24 113/77 10/06/16 13:02 107 H 110/55 10/06/16 12:50 120 H 24 112/57 90 L 10/06/16 11:50 113 H 24 116/71 90 L Intake and Output 10/06/16 10/06/16 10/06/16 06:59 14:59 22:59 Intake Total 7.130 Output Total 50 Balance -42.870 Intake: Intake, IV Titration 7.130 Amount Propofol 500 mg In Empty 7.130 Bag 1 bag @ Titrate IV . Q0M [facility] Rx#:[id number] Output: Urine 50 Uretheral (Duong) 50 This is a 71-year-old male. Supine in bed with evidence of not being intubated and mechanically ventilated. HEENT: Head is atraumatic, normocephalic. Pupils equal, round. Sclerae is anicteric. Conjunctiva slightly pale. Mucous membranes of the mouth are moist. No thrush noted. Around the endotracheal tube NECK: Supple. No JVD. No lymphadenopathy. No thyromegaly. LUNGS: Coarse rhonchi. No intercostal retractions. There are coarse crackles throughout the lung elam few wheezes were heard HEART: Irregular with no no murmur Dressing on sternal wound with no breakthrough bleeding or drainage. Right sided pleural chest tube in place. ABDOMEN: Distinctly distended. Few bowel sounds are noted. Organomegaly is not detected. EXTREMITIES: +1 bilateral pedal edema. No calf tenderness. ORLIN hose in place. NEUROLOGICAL: Sedated Results CBC & Chem 7: 10/06/16 21:00 10/06/16 20:09 Labs: Abnormal Lab Results - Last 24 Hours (Table) 10/06/16 10/06/16 10/06/16 Range/Units 16:39 18:30 19:20 WBC (3.8-10.6) k/uL RBC (4.30-5.90) m/uL Hgb (13.0-17.5) gm/dL Hct (39.0-53.0) % RDW (11.5-15.5) % Neutrophils # (1.3-7.7) k/uL D-Dimer (<0.60) mg/L FEU ABG pH (7.35-7.45) ABG pCO2 (35-45) mmHg ABG pO2 (83-108) mmHg ABG Total CO2 (19-24) mmol/L ABG O2 Saturation (94-97) % Sodium (137-145) mmol/L Chloride (98-107) mmol/L BUN (9-20) mg/dL Creatinine (0.66-1.25) mg/dL Glucose (74-99) mg/dL POC Glucose (mg/dL) 168 H (75-99) mg/dL Plasma Lactic Acid Samir 2.8 H* (0.7-2.0) mmol/L Calcium (8.4-10.2) mg/dL Phosphorus (2.5-4.5) mg/dL Magnesium (1.6-2.3) mg/dL Total Protein (6.3-8.2) g/dL Albumin (3.5-5.0) g/dL Urine Protein Trace H (Negative) Urine Bilirubin 1+ H (Negative) Urine WBC 10 H (0-5) /hpf Calcium Oxalate Crystal Occasional H (None) /hpf Amorphous Sediment Occasional H (None) /hpf Hyaline Casts 79 H (0-2) /lpf Urine Mucus Rare H (None) /hpf 10/06/16 10/06/16 10/06/16 Range/Units 19:26 20:09 20:37 WBC (3.8-10.6) k/uL RBC (4.30-5.90) m/uL Hgb (13.0-17.5) gm/dL Hct (39.0-53.0) % RDW (11.5-15.5) % Neutrophils # (1.3-7.7) k/uL D-Dimer (<0.60) mg/L FEU ABG pH 7.46 H 7.25 L (7.35-7.45) ABG pCO2 31 L 58 H (35-45) mmHg ABG pO2 68 L 73 L (83-108) mmHg ABG Total CO2 26 H (19-24) mmol/L ABG O2 Saturation 92.0 L (94-97) % Sodium 130 L (137-145) mmol/L Chloride 94 L (98-107) mmol/L BUN 67 H (9-20) mg/dL Creatinine 2.86 H (0.66-1.25) mg/dL Glucose 138 H (74-99) mg/dL POC Glucose (mg/dL) (75-99) mg/dL Plasma Lactic Acid Samir (0.7-2.0) mmol/L Calcium 6.5 L* (8.4-10.2) mg/dL Phosphorus 7.1 H (2.5-4.5) mg/dL Magnesium 2.4 H (1.6-2.3) mg/dL Total Protein 5.7 L (6.3-8.2) g/dL Albumin 2.9 L (3.5-5.0) g/dL Urine Protein (Negative) Urine Bilirubin (Negative) Urine WBC (0-5) /hpf Calcium Oxalate Crystal (None) /hpf Amorphous Sediment (None) /hpf Hyaline Casts (0-2) /lpf Urine Mucus (None) /hpf 10/06/16 10/06/16 10/06/16 Range/Units 20:55 21:00 21:00 WBC 31.9 H* (3.8-10.6) k/uL RBC 2.77 L (4.30-5.90) m/uL Hgb 8.2 L (13.0-17.5) gm/dL Hct 26.3 L (39.0-53.0) % RDW 17.8 H (11.5-15.5) % Neutrophils # 29.3 H (1.3-7.7) k/uL D-Dimer 6.31 H (<0.60) mg/L FEU ABG pH (7.35-7.45) ABG pCO2 (35-45) mmHg ABG pO2 (83-108) mmHg ABG Total CO2 (19-24) mmol/L ABG O2 Saturation (94-97) % Sodium (137-145) mmol/L Chloride (98-107) mmol/L BUN (9-20) mg/dL Creatinine (0.66-1.25) mg/dL Glucose (74-99) mg/dL POC Glucose (mg/dL) 164 H (75-99) mg/dL Plasma Lactic Acid Samir (0.7-2.0) mmol/L Calcium (8.4-10.2) mg/dL Phosphorus (2.5-4.5) mg/dL Magnesium (1.6-2.3) mg/dL Total Protein (6.3-8.2) g/dL Albumin (3.5-5.0) g/dL Urine Protein (Negative) Urine Bilirubin (Negative) Urine WBC (0-5) /hpf Calcium Oxalate Crystal (None) /hpf Amorphous Sediment (None) /hpf Hyaline Casts (0-2) /lpf Urine Mucus (None) /hpf Laboratory Results WBC 31.9 k/uL (3.8-10.6) H* 10/06/16 21:00 RBC 2.77 m/uL (4.30-5.90) L 10/06/16 21:00 Hgb 8.2 gm/dL (13.0-17.5) L 10/06/16 21:00 Hct 26.3 % (39.0-53.0) L 10/06/16 21:00 MCV 95.1 fL (80.0-100.0) 10/06/16 21:00 MCH 29.7 pg (25.0-35.0) 10/06/16 21:00 MCHC 31.2 g/dL (31.0-37.0) 10/06/16 21:00 RDW 17.8 % (11.5-15.5) H 10/06/16 21:00 Plt Count 399 k/uL (150-450) 10/06/16 21:00 Neutrophils % 92 % 10/06/16 21:00 Lymphocytes % 3 % 10/06/16 21:00 Monocytes % 3 % 10/06/16 21:00 Eosinophils % 0 % 10/06/16 21:00 Basophils % 0 % 10/06/16 21:00 Neutrophils # 29.3 k/uL (1.3-7.7) H 10/06/16 21:00 Lymphocytes # 1.1 k/uL (1.0-4.8) 10/06/16 21:00 Monocytes # 1.0 k/uL (0-1.0) 10/06/16 21:00 Eosinophils # 0.1 k/uL (0-0.7) 10/06/16 21:00 Basophils # 0.1 k/uL (0-0.2) 10/06/16 21:00 Manual Slide Review Performed 10/06/16 21:00 Large Platelets Present 10/06/16 21:00 Polychromasia Present 10/06/16 21:00 Hypochromasia Slight 10/06/16 21:00 Anisocytosis Slight 10/06/16 21:00 Macrocytosis Slight 10/06/16 21:00 Ovalocytes Present 10/06/16 21:00 PT 24.5 sec (9.0-12.0) H 10/06/16 09:50 INR 2.5 (<1.1) 10/06/16 09:50 APTT 32.8 sec (22.0-30.0) H 10/06/16 09:50 D-Dimer 6.31 mg/L FEU (<0.60) H 10/06/16 21:00 Sample Site GLORIA 10/06/16 20:37 ABG pH 7.25 (7.35-7.45) L 10/06/16 20:37 ABG pCO2 58 mmHg (35-45) H 10/06/16 20:37 ABG pO2 73 mmHg (83-108) L 10/06/16 20:37 ABG HCO3 25 mmol/L (21-25) 10/06/16 20:37 ABG Total CO2 26 mmol/L (19-24) H 10/06/16 20:37 ABG O2 Saturation 92.0 % (94-97) L 10/06/16 20:37 ABG Base Excess -1.7 mmol/L 10/06/16 20:37 FiO2 100 % 10/06/16 20:37 Sodium 130 mmol/L (137-145) L 10/06/16 20:09 Potassium 4.9 mmol/L (3.5-5.1) 10/06/16 20:09 Chloride 94 mmol/L (98-107) L 10/06/16 20:09 Carbon Dioxide 24 mmol/L (22-30) 10/06/16 20:09 Anion Gap 12 mmol/L 10/06/16 20:09 BUN 67 mg/dL (9-20) H 10/06/16 20:09 Creatinine 2.86 mg/dL (0.66-1.25) H 10/06/16 20:09 Est GFR (MDRD) Af Amer 26 (>60 ml/min/1.73 sqM) 10/06/16 20:09 Est GFR (MDRD) Non-Af 22 (>60 ml/min/1.73 sqM) 10/06/16 20:09 Glucose 138 mg/dL (74-99) H 10/06/16 20:09 POC Glucose (mg/dL) 164 mg/dL (75-99) H 10/06/16 20:55 POC Glu [employer] Beulah Armenta 10/06/16 20:55 Plasma Lactic Acid Samir 2.8 mmol/L (0.7-2.0) H* 10/06/16 16:39 Calcium 6.5 mg/dL (8.4-10.2) L* 10/06/16 20:09 Phosphorus 7.1 mg/dL (2.5-4.5) H 10/06/16 20:09 Magnesium 2.4 mg/dL (1.6-2.3) H 10/06/16 20:09 Total Bilirubin 1.3 mg/dL (0.2-1.3) 10/06/16 20:09 AST 55 U/L (17-59) 10/06/16 20:09 ALT 46 U/L (21-72) 10/06/16 20:09 Alkaline Phosphatase 67 U/L (38-126) 10/06/16 20:09 Total Creatine Kinase 736 U/L (55-170) H 10/06/16 09:50 CK-MB (CK-2) 7.2 ng/mL (0.0-2.4) H* 10/06/16 09:50 CK-MB (CK-2) Rel Index 1.0 10/06/16 09:50 Troponin I 1.510 ng/mL (0.000-0.034) H* 10/06/16 09:50 NT-Pro-B Natriuret Pep 6520 pg/mL 10/06/16 09:50 Total Protein 5.7 g/dL (6.3-8.2) L 10/06/16 20:09 Albumin 2.9 g/dL (3.5-5.0) L 10/06/16 20:09 TSH 32.400 mIU/L (0.465-4.680) H 10/06/16 09:50 Free T4 0.88 ng/dL (0.78-2.19) 10/06/16 09:50 Urine Color Dark Yellow 10/06/16 18:30 Urine Appearance Cloudy (Clear) 10/06/16 18:30 Urine pH 5.0 (5.0-8.0) 10/06/16 18:30 Ur Specific Rydal 1.018 (1.001-1.035) 10/06/16 18:30 Urine Protein Trace (Negative) H 10/06/16 18:30 Urine Glucose (UA) Negative (Negative) 10/06/16 18:30 Urine Ketones Negative (Negative) 10/06/16 18:30 Urine Blood Negative (Negative) 10/06/16 18:30 Urine Nitrite Negative (Negative) 10/06/16 18:30 Urine Bilirubin 1+ (Negative) H 10/06/16 18:30 Urine Urobilinogen 4.0 mg/dL (<2.0) 10/06/16 18:30 Ur Leukocyte Esterase Negative (Negative) 10/06/16 18:30 Urine WBC 10 /hpf (0-5) H 10/06/16 18:30 Ur Squamous Epith Cells 2 /hpf (0-4) 10/06/16 18:30 Calcium Oxalate Crystal Occasional /hpf (None) H 10/06/16 18:30 Amorphous Sediment Occasional /hpf (None) H 10/06/16 18:30 Hyaline Casts 79 /lpf (0-2) H 10/06/16 18:30 Urine Mucus Rare /hpf (None) H 10/06/16 18:30 Chest x-ray: report reviewed Abdominal x-ray: report reviewed Assessment and Plan (1) Acute respiratory failure Narrative/Plan: 71-year-old male with history of thyroid cancer recently was hospitalized at which point in time was having difficulties with congestive heart failure. He was noted evidence of aortic valve insufficiency and mitral valve regurgitation. There is also some lymphadenopathy noted within the chest. As he was taken to the operating room and aortic valve replacement occurred as well as mitral valve repair. Biopsy of mediastinal lymph nodes also occurred. 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 Patient was initiated to itraconazole. He however developed atrial fibrillation and was placed on amiodarone and the itraconazole dose was reduced. Upon discharge he has not been able to continue the itraconazole. However is only been home for a very short period of time we developed the progressive shortness of breath. This time it appears he has extensive edema in his abdominal cavity as well as evidence of congestive heart failure. Concerns to pneumonia given his significant leukocytosis and antibiotic therapy was begun with piperacillin tazobactam and vancomycin while cultures are in process. Ongoing aggressive supportive care is continuing Cardiothoracic surgery will be in to see him Case has been discussed with pulmonary critical care. He has acute renal failure and a CT pulmonary angiography cannot be performed consequently a d- dimer was requested, with some concerns to pulmonary embolism. The patient did have significant acidosis with worsened intubation he had marked improvement of his respiratory status with intubation and expect improvement of his acute acidosis. We'll monitor cultures. Status: Acute (2) Status post aortic valve replacement Status: Acute (3) Status post mitral valve repair Status: Acute (4) Histoplasmosis Status: Acute
[2016-10-06] MEDS: CHLORHEXIDINE GLUCONATE 15 ML CUP MUCOUS MEM SCH (23:12)
[2016-10-06] MEDS: FUROSEMIDE 10 MG/ML 4 ML VIAL IV SCH (23:13)
[2016-10-06] MEDS: SENNOSIDES 8.6 MG TAB PO SCH (23:13)
[2016-10-07] MEDS ORDERED: HEPARIN SODIUM,PORCINE 5,000 UNIT/ML 1 ML VIAL SQ SCH
[2016-10-07] MEDS: NOREPINEPHRIN 4 MG-0.9% NS PMX 4 MG/250 ML ML IV SCH ×4 (00:12→09:22)
[2016-10-07] MEDS: PROPOFOL 500 MG in EMPTY BAG 1 BAG IV SCH ×10 (00:13→15:27)
[2016-10-07] MEDS: NITROGLYCERIN OINT 1 INCH/GM PACKET TOPICAL SCH (00:49)
[2016-10-07] MEDS ORDERED: METOPROLOL TARTRATE 12.5 MG TAB PO SCH (01:31)
[2016-10-07] MEDS ORDERED: METOPROLOL TARTRATE 25 MG TAB PO STA (01:40)
[2016-10-07] MEDS: IPRATROPIUM-ALBUTEROL 3 ML NEB INHALATION SCH ×3 (03:34→11:10)
[2016-10-07] MEDS: PIPERACILLIN-TAZOBACTAM 3.375 GM in DEXTROSE/WATER 1 50ML.BAG IVPB SCH ×3 (04:08→20:41)
[2016-10-07] MEDS ORDERED: DIGOXIN 125 MCG TAB PO ONE (05:10)
[2016-10-07 05:19] LABS: Glucose,Whole Blood 159 mg/dL (75-99)
[2016-10-07 05:26] LABS: Anisocytosis Slight; Basophils # (A) 0.1 k/uL (0-0.2); Basophils % (A) 0 %; CH 30.4; CHCM 32.5; Eosinophils # (A) 0.2 k/uL (0-0.7); Eosinophils % (A) 1 %; HCT 27.3 % (39.0-53.0); HDW 3.32; HGB 8.7 gm/dL (13.0-17.5); Hypochromasia Slight; Luc # (Auto) 0.28; Luc % (Auto) 1; Lymphocytes # (A) 0.9 k/uL (1.0-4.8); Lymphocytes % (A) 4 %; MCH 30.2 pg (25.0-35.0); MCV 94.4 fL (80.0-100.0); Macrocytosis Slight; Mean Platelet Volume 7.9; Monocytes # (A) 0.8 k/uL (0-1.0); Monocytes % (A) 3 %; Neutrophils # (A) 21.4 k/uL (1.3-7.7); Neutrophils % (A) 90 %; RBC 2.89 m/uL (4.30-5.90); RDW 17.9 % (11.5-15.5); WBC 23.7 k/uL (3.8-10.6); WBC (Perox) 24.19
[2016-10-07 05:31] LABS: INR 3.1 (<1.1); Prothrombin Time 30.2 sec (9.0-12.0)
[2016-10-07] MEDS: LEVOTHYROXINE 75 MCG TAB PO SCH ×2 (05:31→12:11)
[2016-10-07 05:35] LABS: Calcium 6.7 mg/dL (8.4-10.2); Magnesium 2.4 mg/dL (1.6-2.3); Phosphorous 6.6 mg/dL (2.5-4.5); Potassium 4.2 mmol/L (3.5-5.1); Total Bilirubin 1.2 mg/dL (0.2-1.3); Total Protein 5.4 g/dL (6.3-8.2)
[2016-10-07] MEDS: INSULIN LISPRO (humaLOG) 300 UNIT/3 ML VIAL SQ SCH ×3 (06:15→17:54)
[2016-10-07] MEDS ORDERED: PANTOPRAZOLE 40 MG TABLET PO SCH (07:30)
[2016-10-07] MEDS ORDERED: CALCIUM GLUCONATE 2,000 MG in SODIUM CHLORIDE 0.9% 100 ML IVPB ONE (07:45)
[2016-10-07] MEDS: CHLORHEXIDINE GLUCONATE 15 ML CUP MUCOUS MEM SCH ×2 (08:17→20:47)
[2016-10-07] MEDS: AMIODARONE 200 MG TAB PO SCH ×2 (08:18→20:43)
[2016-10-07] MEDS: FUROSEMIDE 10 MG/ML 4 ML VIAL IV SCH (08:18)
[2016-10-07] MEDS: METOPROLOL TARTRATE 25 MG TAB PO SCH ×2 (08:18→20:43)
[2016-10-07] MEDS: ASPIRIN 81 MG CHEW PO SCH ×2 (08:18→12:13)
[2016-10-07] MEDS: PANTOPRAZOLE 40 MG/10 ML VIAL IVP SCH ×2 (08:19→09:00)
[2016-10-07] MEDS ORDERED: DIGOXIN 250 MCG/ML 2 ML AMP IVP STA (08:23)
--- NOTE | 2016-10-07 08:33 | XR ---
EXAMINATION TYPE: XR chest 1V portable DATE OF EXAM: 10/07/2016 6:51 AM COMPARISON: 10/06/2016 INDICATION: Difficulty breathing TECHNIQUE: Single frontal view of the chest is obtained. FINDINGS: The heart size is enlarged. The pulmonary vasculature is normal. There is right lower lobe infiltrate. There is a moderate left lower lung field infiltrate. Degree of inspiration is limited Endotracheal tube is present with the tip above the linwood. Nasogastric tube transverses the thorax. EKG leads overlie the chest. Sternotomy wires are present. IMPRESSION: 1. Left and right lower lobe infiltrates. Correlate for atelectasis and pneumonia. Follow-up is recom mended.
[2016-10-07 08:36] LABS: ABG Base Excess -1.6 mmol/L; ABG HCO3 22 mmol/L (21-25); ABG Oxygen Saturation 95.5 % (94-97); ABG PCO2 34 mmHg (35-45); ABG PH 7.43 (7.35-7.45); ABG PO2 76 mmHg (83-108); ABG TCO2 23 mmol/L (19-24)
[2016-10-07] MEDS ORDERED: DIGOXIN 125 MCG TAB PO SCH (09:00)
--- NOTE | 2016-10-07 09:39 | CONS ---
DATE OF CONSULTATION: 10/06/2016 CHIEF COMPLAINT: Questionable seizures. HISTORY OF PRESENT ILLNESS: Mr. Stevenson is a pleasant 71-year-old male who is being evaluated today on 10/06/2016 by the neurology service per the request of Dr. Harrell for questionable seizures. The patient was brought into [facility] Emergency Room with the complaints of chest pain and shortness of breath. The patient is status post open-heart surgery approximately one week ago, after undergoing a valve replacement. According to his , he was sitting at home and started having shortness of breath. This was then followed by an episode of altered consciousness with some eye rolling and arm stiffness. According to the emergency room note, when EMS arrived, the patient was "slowly coming around". According to his , once the episode resolved, which was less than 30 seconds, the patient was right back to his baseline. In the emergency room, he was found to have significant hypoxia with pulse ox going down to 80% at times. He appeared to be having difficulty breathing with significant abdominal breathing observed. In the emergency room, he had 2 episodes where he started coughing and then right after the cough he had similar neurological events of altered consciousness and stiffening. Both of those also resolved within seconds and both of those events were followed by the patient suddenly returning to baseline with no postictal phase. A stat CT scan of the brain was done, which showed generalized atrophy and small vessel ischemic changes. His CBC showed significant leukocytosis at 24.6 and anemia with a hemoglobin of 9.2 and hematocrit of 27%. His INR was therapeutic at 2.5. His comprehensive metabolic profile showed mild hyponatremia at 133, hypocalcemia at 7.0 and renal insufficiency with a BUN of 57 and creatinine of 2.66. His cardiac enzymes showed elevated troponin I at 1.510. His TSH was significantly elevated at 32, but his free T4 level was within normal limits, although on the low side. He does have history of hypothyroidism and is on Synthroid at home. At the time of my evaluation, the patient is lying in his stretcher in the emergency room. He is quite awake and oriented and still having some difficulty repeat. He denies any headache or lateralizing numbness or weakness. PAST MEDICAL HISTORY: Heart disease with recent valve replacement as mentioned above, hypothyroidism, history of atrial fibrillation, history of thyroid cancer, heart failure, dyslipidemia, arthritis, history of rheumatic fever, orthopedic surgeries. SOCIAL HISTORY: The patient is a former smoker. He rarely drinks alcohol. He denies any drug use. FAMILY HISTORY: Positive for heart disease and cancer. HOME MEDICATIONS: Reviewed in the chart. ALLERGIES: No known drug allergies. REVIEW OF SYSTEMS: CONSTITUTIONAL: Positive for fatigue. EYES: Negative. ENT: Negative. CARDIOVASCULAR: As mentioned above. RESPIRATORY: As mentioned above. NEUROLOGICAL: As mentioned above. GASTROINTESTINAL: Negative. GENITOURINARY: Negative. MUSCULOSKELETAL: Positive for occasional joint pain. ENDOCRINE: Positive for hypothyroidism. HEMATOLOGY/ONCOLOGY: As mentioned above. PSYCHIATRIC: Negative. PHYSICAL EXAM: Vital signs show a temperature of 98.3, pulse 107, respirations 24, blood pressure 110/55. GENERAL APPEARANCE: The patient is an obese, elderly male who appears to be having mild to moderate respiratory distress. HEENT: Normocephalic, atraumatic, no facial asymmetry is seen. Extraocular muscles are intact. Neck is supple with no masses felt. CARDIOVASCULAR: Irregularly irregular rhythm with a normal rate. ABDOMEN: Obese and distended. Abdominal breathing is noticed. Extremities showed edema with no clubbing seen. NEUROLOGICAL EXAM: The patient is awake and oriented x3. He knew the year, but thought we were in the month of August. No lateralizing weakness is seen. Mild generalized weakness is noticed with a rating 4+/5. Sensory exam was normal to light touch in all 4 extremities. Postural tremors are seen. No facial asymmetry is seen on cranial nerve testing. IMPRESSION: 1. Recurrent transient episodes of altered consciousness. 2. Questionable seizures. 3. Shortness of breath. 4. Hypoxia. 5. Acute renal failure. 6. Recent open heart surgery for valve replacement. 7. Coagulopathy. 8. Leukocytosis. RECOMMENDATIONS: The patient's recurrent episode of altered consciousness is not felt to be due to any epileptic activity. The patient does not have any history of seizures. All 3 episodes that occurred were preceded by some coughing spells which likely made him more hypoxic. The patient was likely having hypoxic episodes of syncope. An EEG has been ordered. I did review his CT scan of the brain, which showed no acute findings. I do recommend further workup for his leukocytosis. The patient is awake, and oriented and has no nuchal rigidity, and I doubt any intracranial etiologies for the leukocytosis. Cardiology and Pulmonology have been consulted. The patient will be transferred to the intensive care unit for closer monitoring. As for his renal insufficiency, the family denies any previous history of renal disease, and I do recommend further workup for this. Prognosis is guarded. I will continue to follow with you. Further recommendations to follow. Thank you for allowing me to participate in the care of your patient. If you have any questions, please feel free to contact me.
[2016-10-07] MEDS ORDERED: FUROSEMIDE 250 MG in SODIUM CHLORIDE 0.9% 225 ML IVP SCH (10:30)
[2016-10-07] MEDS: DOCUSATE ORAL SOLN 100 MG/10 ML CUP PO SCH ×2 (10:52→20:43)
[2016-10-07] MEDS: NOREPINEPHRIN 16 MG-0.9%NS PMX 16 MG/250 ML ML IV SCH ×2 (11:17→22:04)
[2016-10-07] MEDS: IPRATROPIUM 0.5 MG/2.5 ML NEBU INHALATION SCH ×4 (11:23→23:22)
[2016-10-07] MEDS: LEVALBUTEROL NEB (CONC) 1.25 MG/0.5 ML AMP INHALATION SCH ×4 (11:23→23:22)
--- NOTE | 2016-10-07 11:32 | ECHOF ---
Referral Reason:heart failure MEASUREMENTS -------- HEIGHT: 175.3 cm WEIGHT: 117.9 kg BP: IVSd: 1.5 cm (0.6 - 1.1) LVIDd: 3.9 cm (3.9 - 5.3) LVPWd: 1.1 cm (0.6 - 1.1) IVSs: 1.8 cm LVIDs: 1.7 cm LVPWs: 1.2 cm LAESV Index (A-L): 45.12 ml/m Ao Diam: 4.2 cm (2.0 - 3.7) AV Cusp: 2.2 cm (1.5 - 2.6) LA Diam: 3.6 cm (2.7 - 3.8) AV maxP.01 mmHg AV meanP.32 mmHg RAP: 5.00 mmHg RVSP: 17.01 mmHg FINDINGS -------- Atrial fibrillation. TDS due to CABG and Bandages. There is mild concentric left ventricular hypertrophy. Overall left ventricular systolic function is low-normal with, an EF between 50 - 55 %. There is paradoxical/dysynergic septal motion consistent with post-operative status. The right ventricle is normal in size and function. LA is severely dilated >40 ml/m2 The right atrium was not well visualized. Peak/mean gradient across the Aortic Valve is 25.01mmHg / 12.32mmHg. Normally functioning bioprosthetic valve. Mild mitral regurgitation is present. MV Repair. Mild tricuspid regurgitation present. The right ventricular systolic pressure, as measured by Doppler, is 17.01mmHg. The pulmonic valve was not well visualized. There is a small, generalized pericardial effusion present. CONCLUSIONS -------- 1. Atrial fibrillation. 2. Normally functioning bioprosthetic valve. 3. Mild mitral regurgitation is present. 4. MV Repair. 5. Mild tricuspid regurgitation present. 6. The right ventricular systolic pressure, as measured by Doppler, is 17.01mmHg. 7. The pulmonic valve was not well visualized. 8. There is a small, generalized pericardial effusion present. 9. TDS due to CABG and Bandages. 10. There is mild concentric left ventricular hypertrophy. 11. Overall left ventricular systolic function is low-normal with, an EF between 50 - 55 %. 12. There is paradoxical/dysynergic septal motion consistent with post-operative status. 13. The right ventricle is normal in size and function. 14. LA is severely dilated >40 ml/m2 15. The right atrium was not well visualized. 16. Peak/mean gradient across the Aortic Valve is 25.01mmHg / 12.32mmHg. STATOR CONNECTOR: Charisse Posadas RDCS
[2016-10-07 12:18] LABS: Glucose,Whole Blood 102 mg/dL (75-99)
--- NOTE | 2016-10-07 13:47 | P.CNPUL ---
History of Present Illness Consult date: 10/07/16 Requesting physician: Jae Riggs Reason for consult: hypoxemia Chief complaint: Shortness of breath History of present illness: This is a 71-year-old white male who was recently discharged from [facility] following aortic valve replacement and mitral valve repair he also had a mediastinal lymph node positive for histoplasmosis. His postoperative course was relatively uneventful, patient was actually discharged home last Tuesday. Yesterday morning, the called and she was concerned that her may be having seizure-like activity were and the patient went completely stiff, shaking all over, and he was staring blankly. He appeared at the time to be confused, and the 2 days. EMS was called, and the patient was brought into the ER. Upon arrival the patient was noted to be extremely short of breath, relatively hypoxic, and he was requiring at least 6 L of oxygen by nasal cannula. Chest x-ray was suggestive of congestive heart failure, patient was in atrial fibrillation and RVR with heart rate in the 120 range. Patient was already anticoagulated, and his INR was therapeutic upon presentation. At any rate patient was transferred to the ICU, and shortly after he arrived to the ICU, I was notified by the nurse taking care of the patient that he was not doing too well. Patient was struggling to breathe, hence I recommended immediate intubation and placement on mechanical ventilation. I reviewed the chest x-ray, and I felt that the chest x-ray clearly shows pulmonary edema, whether this is cardiogenic or noncardiogenic pulmonary edema it is difficult to tell, however at this point and considering the patient's cardiac history and considering the presentation of atrial fibrillation and RVR, I believe this is cardiogenic unless proven otherwise. Patient was given Lasix yesterday, and he was placed on Lasix drip today. His INR was noted to be elevated, however I was able to place a right triple-lumen catheter in the right groin to avoid the bleeding and if bleeding is noted that could be easily tampo naded. Echocardiogram showed good LV function and according to the dye reel operator his valves were noted to be unremarkable, patient was placed empirically on antibiotics just in case if we are dealing with underlying pneumonia which is again felt to be less likely considering the acute presentation. Even the issue of histoplasmosis is most likely chronic, and I strongly doubt chronic active histoplasmosis. But the patient was already on itraconazole on outpatient basis. The patient himself is now on mechanical ventilation, intubated, and on propofol drip. Patient was noted to have intermittent episodes of profound hypertension when suctioned. This is noted to be without bradycardia, but the blood pressure completely goes down to the 60s and 70s systolic with minimal suctioning of the endotracheal tube. Review of Systems ROS unobtainable: due to endotracheal tube Past Medical History Past Medical History: Atrial Fibrillation, Cancer, Heart Failure, Hyperlipidemia , Osteoarthritis (OA), Thyroid Disorder Additional Past Medical History / Comment(s): Current mediastinal lymphadenopathy with histoplasmosis being tx with ABX by Dr. Ramos, THYROID CANCER with surgery/radiation, varicose veins, rheumatic fever, paroxysmal atrial fibrillation, aortic valve insufficiency and mitral valve regurgitation- recent valvular surgery, moderate pulmonary hypertension History of Any Multi-Drug Resistant Organisms: None Reported Past Surgical History: Cardiac Valve Replacement, Heart Catheterization, Joint Replacement Additional Past Surgical History / Comment(s): thyroidectomy, total left knee replacement, 08/2016cardiac cath/fabiola, 09/29/16 aortic valve replacement with bovine valve, mitral valve repair, mediastinal lymph node biopsy, colonoscopies/ polypectomy-benign. Past Anesthesia/Blood Transfusion Reactions: No Reported Reaction Past Psychological History: No Psychological Hx Reported Additional Psychological History / Comment(s): Pt resides with his spouse. He has [facility] home care. He uses no assistive device. He has not driven since cardiac valve surgery, his spouse does the driving.SMOKED 3 PPD. Started smoking in 1959 and QUIT SMOKING 1979. Pt smoked cigars on and off from 1991 until 1999. He denies any medical marijuana, marijuana, street drug use. He states he has not had any alcohol intake for the past 3 months. He usually drinks 0-2 alcoholic beverages per day. He has traveled in the past in [facility] [place], [place], [facility], [place] and [place]. He has worked in the past at [employer]. Smoking Status: Former smoker Past Alcohol Use History: Rare Additional Past Alcohol Use History / Comment(s): SMOKED 3 PPD. Started smoking in 1959 and QUIT SMOKING 1979. Pt smoked cigars on and off from 1991 until 1999. He denies any medical marijuana, marijuana, street drug use. He states he has not had any alcohol intake for the past 3 months. He usually drinks 0-2 alcoholic beverages per day. He has traveled in the past in [facility] [place] , [place], [facility], [place] and [place]. He has worked in the past at [employer]. Past Drug Use History: None Reported - Past Family History Father Family Medical History: Coronary Artery Disease (CAD) Additional Family Medical History / Comment(s): Father at 76yrs from heart problems. Mother Family Medical History: No Reported History Additional Family Medical History / Comment(s): Mother at the age of 92 yrs. She had varicose veins Brother(s) Family Medical History: Cancer Additional Family Medical History / Comment(s): LIVER CA. BLOOD CLOT. Medications and Allergies Home Medications Medication Instructions Recorded Confirmed Type Aspirin 81 mg PO DAILY 11/14/14 10/06/16 History Levothyroxine Sodium [Synthroid] 150 mcg PO DAILY 11/15/14 10/06/16 History Furosemide [Lasix] 40 mg PO DAILY 09/22/16 10/06/16 History Potassium Chloride [K-Tab ER] 10 meq PO DAILY 09/22/16 10/06/16 History Multivitamins, Thera [Multivitamin 1 tab PO DAILY@1200 10/06/16 10/06/16 History (formulary)] Warfarin [Coumadin] 7.5 mg PO DAILY 10/06/16 10/06/16 History Allergies Allergy/AdvReac Type Severity Reaction Status Date / Time No Known Allergies Allergy Verified 10/06/16 10:22 Physical Exam Vitals: Vital Signs Temp Pulse Resp BP Pulse Ox 10/07/16 12:30 127 H 24 119/76 98 10/07/16 12:00 98.7 F 114 H 19 91/59 98 10/07/16 11:30 131 H 24 91/59 98 10/07/16 11:10 112 H 10/07/16 11:00 113 H 19 112/72 98 10/07/16 10:30 119 H 20 112/72 98 10/07/16 10:00 114 H 17 99/69 95 10/07/16 09:30 130 H 17 69/50 96 10/07/16 09:00 130 H 19 114/81 97 10/07/16 08:30 109 H 17 90/68 97 10/07/16 08:00 98.5 F 133 H 24 94/65 95 10/07/16 07:57 126 H 10/07/16 07:42 123 H 10/07/16 07:30 117 H 20 94/65 98 10/07/16 07:00 124 H 19 102/69 98 10/07/16 06:30 118 H 21 98 10/07/16 06:00 132 H 17 105/74 99 10/07/16 05:30 120 H 19 99 10/07/16 05:00 113 H 20 90/71 98 10/07/16 04:30 120 H 20 97 10/07/16 04:00 98.4 F 121 H 20 108/79 98 10/07/16 03:58 131 H 10/07/16 03:35 118 H 10/07/16 03:30 123 H 20 98/66 99 10/07/16 03:00 119 H 20 100 10/07/16 02:30 128 H 19 95/68 99 10/07/16 02:00 133 H 17 90/73 99 10/07/16 01:30 118 H 17 90/73 99 10/07/16 01:00 118 H 17 90/70 99 10/07/16 00:30 98.9 F 119 H 17 99 10/07/16 00:06 118 H 10/07/16 00:00 116 H 20 103/61 99 10/06/16 23:52 120 H 10/06/16 23:30 120 H 15 121/80 98 10/06/16 23:00 118 H 17 119/63 98 10/06/16 22:30 113 H 17 91/63 97 10/06/16 22:00 115 H 22 90/58 97 10/06/16 21:30 107 H 24 100/76 94 L 10/06/16 21:00 104 H 25 H 97/53 94 L 10/06/16 20:30 117 H 23 96/50 93 L 10/06/16 20:00 114 H 12 82/46 96 10/06/16 19:30 99.0 F 119 H 23 103/85 92 L 10/06/16 19:24 98.5 F 111 H 24 133/85 90 L 10/06/16 19:04 120 H 10/06/16 18:00 110 H 22 135/83 92 L 10/06/16 16:22 128 H 10/06/16 16:13 127 H 10/06/16 14:02 119 H 24 113/77 Intake and Output 10/06/16 10/07/16 10/07/16 22:59 06:59 14:59 Intake Total 47.442 2709.369 6935.442 Output Total 165 1155 3600 Balance -117.558 -51.960 -2578.558 Intake: IV 32.5 185.0 272.5 Piperacillin-Tazobactam 3 12.5 75.0 162.5 .375 gm In Dextrose/Water 1 50ml.bag @ 12.5 mls/hr IVPB ONCE STA Rx#: [id number] Sodium Chloride 0.9% 1, 20 110 110 000 ml @ 20 mls/hr IV . Q24H [facility] Rx#:[id number] Intake, IV Titration 14.942 918.040 748.942 Amount Calcium Gluconate 2,000 100 mg In Sodium Chloride 0.9 % 100 ml @ 100 mls/hr IVPB ONCE ONE Rx#: [id number] Norepinephrin 16 mg-0.9% 0 Ns Pmx 16 mg In 250 ml @ Titrate IV .Q0M [facility] Rx#: [id number] Norepinephrin 4 mg-0.9% 7.812 713.750 250.000 Ns Pmx 4 mg In 250 ml @ Titrate IV .Q0M [facility] Rx#: [id number] Propofol 500 mg In Empty 7.130 204.290 148.942 Bag 1 bag @ Titrate IV . Q0M [facility] Rx#:[id number] Vancomycin 1,750 mg In 250 Sodium Chloride 0.9% 250 ml @ 125 mls/hr IVPB Q48H [facility] Rx#:[id number] Output: Gastric Drainage 150 Urine 165 1155 3450 Uretheral (Duong) 50 Other: Voiding Method Indwelling Catheter Indwelling Catheter Indwelling Catheter Weight 118.1 kg 118.1 kg Patient Weight 10/08/16 06:59 Weight 118.1 kg ABP, PAP, CO, CI - Last 8 Hours Arterial Blood Pressure 142/79 Arterial Blood Pressure 98/61 Arterial Blood Pressure 134/60 Arterial Blood Pressure 103/58 Arterial Blood Pressure 102/51 Arterial Blood Pressure 112/58 Arterial Blood Pressure 97/42 Arterial Blood Pressure 109/66 Arterial Blood Pressure 97/54 Arterial Blood Pressure 92/46 Arterial Blood Pressure 98/59 Arterial Blood Pressure 99/59 Arterial Blood Pressure 106/58 Arterial Blood Pressure 95/58 Physical Exam: Revealed a 71-year-old obese, sedated, on mechanical ventilation , endotracheal tube is intact. HEENT:[Neck is supple.] [No neck masses.] [No thyromegaly.] [No JVD.] Chest: [Neck is in the rhonchi noted at the bases. With faint expiratory wheezes] sternum is stable Cardiac Exam: [Irregular irregular rhythm Normal S1 and S2, no S3 gallop, no murmur.] Abdomen: [Soft, nontender, no megaly, no rebound, no guarding, normal bowel sounds.] Extremities: [No clubbing, 2+ bipedal edema, no cyanosis.] Neurological Exam: [Cannot be assessed, patient is on mechanical ventilation and propofol drip Results - Laboratory Findings CBC and BMP: 10/07/16 05:18 10/07/16 05:18 ABG ABG pH 7.43 (7.35-7.45) 10/07/16 08:30 ABG pCO2 34 mmHg (35-45) L 10/07/16 08:30 ABG pO2 76 mmHg (83-108) L 10/07/16 08:30 ABG O2 Saturation 95.5 % (94-97) 10/07/16 08:30 PT/INR, D-dimer PT 30.2 sec (9.0-12.0) H 10/07/16 05:18 INR 3.1 (<1.1) 10/07/16 05:18 D-Dimer 6.31 mg/L FEU (<0.60) H 10/06/16 21:00 Abnormal lab findings: Abnormal Labs 10/06/16 10/06/16 10/06/16 16:39 18:30 19:20 WBC RBC Hgb Hct RDW Neutrophils # Lymphocytes # PT D-Dimer ABG pH ABG pCO2 ABG pO2 ABG Total CO2 ABG O2 Saturation Sodium Chloride BUN Creatinine Glucose POC Glucose (mg/dL) 168 H Plasma Lactic Acid Samir 2.8 H* Calcium Ionized Calcium Guille Phosphorus Magnesium Total Protein Albumin Urine Protein Trace H Urine Bilirubin 1+ H Urine WBC 10 H Calcium Oxalate Crystal Occasional H Amorphous Sediment Occasional H Hyaline Casts 79 H Urine Mucus Rare H 04/12/17 04/12/17 04/12/17 19:26 20:09 20:37 WBC RBC Hgb Hct RDW Neutrophils # Lymphocytes # PT D-Dimer ABG pH 7.46 H 7.25 L ABG pCO2 31 L 58 H ABG pO2 68 L 73 L ABG Total CO2 26 H ABG O2 Saturation 92.0 L Sodium 130 L Chloride 94 L BUN 67 H Creatinine 2.86 H Glucose 138 H POC Glucose (mg/dL) Plasma Lactic Acid Samir Calcium 6.5 L* Ionized Calcium Guille Phosphorus 7.1 H Magnesium 2.4 H Total Protein 5.7 L Albumin 2.9 L Urine Protein Urine Bilirubin Urine WBC Calcium Oxalate Crystal Amorphous Sediment Hyaline Casts Urine Mucus 10/06/16 10/06/16 10/06/16 20:55 21:00 21:00 WBC 31.9 H* RBC 2.77 L Hgb 8.2 L Hct 26.3 L RDW 17.8 H Neutrophils # 29.3 H Lymphocytes # PT D-Dimer 6.31 H ABG pH ABG pCO2 ABG pO2 ABG Total CO2 ABG O2 Saturation Sodium Chloride BUN Creatinine Glucose POC Glucose (mg/dL) 164 H Plasma Lactic Acid Samir Calcium Ionized Calcium Guille Phosphorus Magnesium Total Protein Albumin Urine Protein Urine Bilirubin Urine WBC Calcium Oxalate Crystal Amorphous Sediment Hyaline Casts Urine Mucus 10/06/16 10/07/16 10/07/16 22:10 05:16 05:18 WBC 23.7 H RBC 2.89 L Hgb 8.7 L Hct 27.3 L RDW 17.9 H Neutrophils # 21.4 H Lymphocytes # 0.9 L PT D-Dimer ABG pH ABG pCO2 ABG pO2 ABG Total CO2 ABG O2 Saturation Sodium Chloride BUN Creatinine Glucose POC Glucose (mg/dL) 159 H Plasma Lactic Acid Samir Calcium Ionized Calcium Guille 3.7 L Phosphorus Magnesium Total Protein Albumin Urine Protein Urine Bilirubin Urine WBC Calcium Oxalate Crystal Amorphous Sediment Hyaline Casts Urine Mucus 10/07/16 10/07/16 10/07/16 05:18 05:18 08:30 WBC RBC Hgb Hct RDW Neutrophils # Lymphocytes # PT 30.2 H D-Dimer ABG pH ABG pCO2 34 L ABG pO2 76 L ABG Total CO2 ABG O2 Saturation Sodium 132 L Chloride 96 L BUN 66 H Creatinine 2.60 H Glucose 145 H POC Glucose (mg/dL) Plasma Lactic Acid Samir Calcium 6.7 L Ionized Calcium Guille Phosphorus 6.6 H Magnesium 2.4 H Total Protein 5.4 L Albumin 2.8 L Urine Protein Urine Bilirubin Urine WBC Calcium Oxalate Crystal Amorphous Sediment Hyaline Casts Urine Mucus 10/07/16 12:16 WBC RBC Hgb Hct RDW Neutrophils # Lymphocytes # PT D-Dimer ABG pH ABG pCO2 ABG pO2 ABG Total CO2 ABG O2 Saturation Sodium Chloride BUN Creatinine Glucose POC Glucose (mg/dL) 102 H Plasma Lactic Acid Samir Calcium Ionized Calcium Guille Phosphorus Magnesium Total Protein Albumin Urine Protein Urine Bilirubin Urine WBC Calcium Oxalate Crystal Amorphous Sediment Hyaline Casts Urine Mucus - Diagnostic Findings Chest x-ray: image reviewed (Chest x-ray is suggestive of congestive heart failure/interstitial pulmonary edema) Assessment and Plan Plan: Impression: 1 acute hypoxic respiratory failure requiring intubation and mechanical ventilation secondary to cardiogenic or noncardiogenic pulmonary edema however I feel this is more of a cardiogenic pulmonary edema rather than noncardiogenic. Possibility of sepsis and noncardiogenic pulmonary edema isn't different differential, but again felt to be less likely. However the patient will be empirically covered with antibiotics. Until the cultures become available. The leukocytosis upon presentation is a bit concerning. And Dr. Ramos was consulted to address that issue specifically. 2 status post mitral valve repair and aortic valve replacement as well as mediastinal node biopsy in the last 10 days. 3 acute renal failure, most likely secondary to poor perfusion, especially with the fact that the patient is noted to drop his blood pressure significantly upon coughing and this was witnessed while in the ICU. I believe the patient must have developed acute kidney injury, acute tubular necrosis. 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 5 multiple comorbidities including hypercholesterolemia, hypertension, hypothyroidism, obesity, osteoarthritis, thyroid cancer with previous surgery and radiation, history of rheumatic fever, and history of moderate pulmonary hypertension. Recommendation: Patient will remain on mechanical ventilation, diuretics, bronchodilators, antibiotics empirically, as per infectious disease on the case , discussed his condition with multiple consultants on the case. Right femoral triple-lumen catheter was placed, INR is elevated, hence we'll keep the patient off Coumadin for now, and may likely start heparin tomorrow. Patient needs to be on anticoagulation for his atrial fibrillation and recent valve surgery. Patient is critically ill, and prognosis is guarded. Time with Patient: Greater than 30
--- NOTE | 2016-10-07 14:52 | P.PN ---
Subjective Principal diagnosis: Patient is a 71-year-old male who is being followed by the neurology service for questionable seizures. Patient recently underwent open-heart surgery and had a valve replacement. Patient was at home and started to become very short of breath. Patient had coughing episodes followed by altered consciousness. Patient's stated episodes lasted less than 30 seconds. No post ictal state was reported. Patient was brought to [facility] emergency room for further evaluation. Computed tomography scan of the brain was done which showed generalized atrophy and small vessel ischemic changes. At the time of my evaluation, patient is intubated and sedated on propofol drip. Family is at the bedside. Staff reports patient is not following commands but this may be related to sedation Objective - Vital Signs Vital signs: Vital Signs Temp 98.7 F 10/07/16 12:00 Pulse 128 H 10/07/16 14:00 Resp 18 10/07/16 14:00 BP 100/60 10/07/16 14:00 Pulse Ox 98 10/07/16 14:00 Intake & Output 10/06/16 10/07/16 10/07/16 18:59 06:59 18:59 Intake Total 1834.142 6836.175 Output Total 50 1270 4125 Balance -50 -119.518 -3025.825 Weight 118.1 kg 118.1 kg Intake: IV 217.5 312.5 Piperacillin-Tazobactam 3 87.5 162.5 .375 gm In Dextrose/Water 1 50ml.bag @ 12.5 mls/hr IVPB ONCE [facility] Rx#: [id number] Sodium Chloride 0.9% 1, 130 150 000 ml @ 20 mls/hr IV . Q24H [facility] Rx#:[id number] Intake, IV Titration 932.982 786.675 Amount Calcium Gluconate 2,000 100 mg In Sodium Chloride 0.9 % 100 ml @ 100 mls/hr IVPB ONCE ONE Rx#: [id number] Norepinephrin 16 mg-0.9% 0 Ns Pmx 16 mg In 250 ml @ Titrate IV .Q0M [facility] Rx#: [id number] Norepinephrin 4 mg-0.9% 721.562 250.000 Ns Pmx 4 mg In 250 ml @ Titrate IV .Q0M [facility] Rx#: [id number] Propofol 500 mg In Empty 211.420 186.675 Bag 1 bag @ Titrate IV . Q0M [facility] Rx#:[id number] Vancomycin 1,750 mg In 250 Sodium Chloride 0.9% 250 ml @ 125 mls/hr IVPB Q48H [facility] Rx#:[id number] Output: Gastric Drainage 150 Urine 50 1270 3975 Uretheral (Duong) 50 Other: Voiding Method Indwelling Catheter Indwelling Catheter ABP, PAP, CO, CI - Last Documented Arterial Blood Pressure 92/58 - Exam PHYSICAL EXAM: GENERAL APPEARANCE: Patient is a well-developed, male who appears to be in no acute distress. Patient is currently intubated in the ICU setting. HEENT: Normocephalic, atraumatic, no obvious facial asymmetry is seen. CARDIOVASCULAR: Regular rate and rhythm. ABDOMEN: Soft EXTREMITIES: SCDs NEUROLOGICAL EXAM: Patient is currently intubated in the ICU on sedation with propofol drip. Unable to perform meaningful neurological exam. - Labs CBC & Chem 7: 10/07/16 05:18 10/07/16 05:18 Labs: Abnormal Lab Results - Last 24 Hours (Table) 10/06/16 10/06/16 10/06/16 Range/Units 16:39 18:30 19:20 WBC (3.8-10.6) k/uL RBC (4.30-5.90) m/uL Hgb (13.0-17.5) gm/dL Hct (39.0-53.0) % RDW (11.5-15.5) % Neutrophils # (1.3-7.7) k/uL Lymphocytes # (1.0-4.8) k/uL PT (9.0-12.0) sec D-Dimer (<0.60) mg/L FEU ABG pH (7.35-7.45) ABG pCO2 (35-45) mmHg ABG pO2 (83-108) mmHg ABG Total CO2 (19-24) mmol/L ABG O2 Saturation (94-97) % Sodium (137-145) mmol/L Chloride (98-107) mmol/L BUN (9-20) mg/dL Creatinine (0.66-1.25) mg/dL Glucose (74-99) mg/dL POC Glucose (mg/dL) 168 H (75-99) mg/dL Plasma Lactic Acid Samir 2.8 H* (0.7-2.0) mmol/L Calcium (8.4-10.2) mg/dL Ionized Calcium Guille (4.5-5.3) mg/dL Phosphorus (2.5-4.5) mg/dL Magnesium (1.6-2.3) mg/dL Total Protein (6.3-8.2) g/dL Albumin (3.5-5.0) g/dL Urine Protein Trace H (Negative) Urine Bilirubin 1+ H (Negative) Urine WBC 10 H (0-5) /hpf Calcium Oxalate Crystal Occasional H (None) /hpf Amorphous Sediment Occasional H (None) /hpf Hyaline Casts 79 H (0-2) /lpf Urine Mucus Rare H (None) /hpf 10/06/16 10/06/16 10/06/16 Range/Units 19:26 20:09 20:37 WBC (3.8-10.6) k/uL RBC (4.30-5.90) m/uL Hgb (13.0-17.5) gm/dL Hct (39.0-53.0) % RDW (11.5-15.5) % Neutrophils # (1.3-7.7) k/uL Lymphocytes # (1.0-4.8) k/uL PT (9.0-12.0) sec D-Dimer (<0.60) mg/L FEU ABG pH 7.46 H 7.25 L (7.35-7.45) ABG pCO2 31 L 58 H (35-45) mmHg ABG pO2 68 L 73 L (83-108) mmHg ABG Total CO2 26 H (19-24) mmol/L ABG O2 Saturation 92.0 L (94-97) % Sodium 130 L (137-145) mmol/L Chloride 94 L (98-107) mmol/L BUN 67 H (9-20) mg/dL Creatinine 2.86 H (0.66-1.25) mg/dL Glucose 138 H (74-99) mg/dL POC Glucose (mg/dL) (75-99) mg/dL Plasma Lactic Acid Samir (0.7-2.0) mmol/L Calcium 6.5 L* (8.4-10.2) mg/dL Ionized Calcium Guille (4.5-5.3) mg/dL Phosphorus 7.1 H (2.5-4.5) mg/dL Magnesium 2.4 H (1.6-2.3) mg/dL Total Protein 5.7 L (6.3-8.2) g/dL Albumin 2.9 L (3.5-5.0) g/dL Urine Protein (Negative) Urine Bilirubin (Negative) Urine WBC (0-5) /hpf Calcium Oxalate Crystal (None) /hpf Amorphous Sediment (None) /hpf Hyaline Casts (0-2) /lpf Urine Mucus (None) /hpf 10/06/16 10/06/16 10/06/16 Range/Units 20:55 21:00 21:00 WBC 31.9 H* (3.8-10.6) k/uL RBC 2.77 L (4.30-5.90) m/uL Hgb 8.2 L (13.0-17.5) gm/dL Hct 26.3 L (39.0-53.0) % RDW 17.8 H (11.5-15.5) % Neutrophils # 29.3 H (1.3-7.7) k/uL Lymphocytes # (1.0-4.8) k/uL PT (9.0-12.0) sec D-Dimer 6.31 H (<0.60) mg/L FEU ABG pH (7.35-7.45) ABG pCO2 (35-45) mmHg ABG pO2 (83-108) mmHg ABG Total CO2 (19-24) mmol/L ABG O2 Saturation (94-97) % Sodium (137-145) mmol/L Chloride (98-107) mmol/L BUN (9-20) mg/dL Creatinine (0.66-1.25) mg/dL Glucose (74-99) mg/dL POC Glucose (mg/dL) 164 H (75-99) mg/dL Plasma Lactic Acid Samir (0.7-2.0) mmol/L Calcium (8.4-10.2) mg/dL Ionized Calcium Guille (4.5-5.3) mg/dL Phosphorus (2.5-4.5) mg/dL Magnesium (1.6-2.3) mg/dL Total Protein (6.3-8.2) g/dL Albumin (3.5-5.0) g/dL Urine Protein (Negative) Urine Bilirubin (Negative) Urine WBC (0-5) /hpf Calcium Oxalate Crystal (None) /hpf Amorphous Sediment (None) /hpf Hyaline Casts (0-2) /lpf Urine Mucus (None) /hpf 10/06/16 10/07/16 10/07/16 Range/Units 22:10 05:16 05:18 WBC 23.7 H (3.8-10.6) k/uL RBC 2.89 L (4.30-5.90) m/uL Hgb 8.7 L (13.0-17.5) gm/dL Hct 27.3 L (39.0-53.0) % RDW 17.9 H (11.5-15.5) % Neutrophils # 21.4 H (1.3-7.7) k/uL Lymphocytes # 0.9 L (1.0-4.8) k/uL PT (9.0-12.0) sec D-Dimer (<0.60) mg/L FEU ABG pH (7.35-7.45) ABG pCO2 (35-45) mmHg ABG pO2 (83-108) mmHg ABG Total CO2 (19-24) mmol/L ABG O2 Saturation (94-97) % Sodium (137-145) mmol/L Chloride (98-107) mmol/L BUN (9-20) mg/dL Creatinine (0.66-1.25) mg/dL Glucose (74-99) mg/dL POC Glucose (mg/dL) 159 H (75-99) mg/dL Plasma Lactic Acid Samir (0.7-2.0) mmol/L Calcium (8.4-10.2) mg/dL Ionized Calcium Guille 3.7 L (4.5-5.3) mg/dL Phosphorus (2.5-4.5) mg/dL Magnesium (1.6-2.3) mg/dL Total Protein (6.3-8.2) g/dL Albumin (3.5-5.0) g/dL Urine Protein (Negative) Urine Bilirubin (Negative) Urine WBC (0-5) /hpf Calcium Oxalate Crystal (None) /hpf Amorphous Sediment (None) /hpf Hyaline Casts (0-2) /lpf Urine Mucus (None) /hpf 10/07/16 10/07/16 10/07/16 Range/Units 05:18 05:18 08:30 WBC (3.8-10.6) k/uL RBC (4.30-5.90) m/uL Hgb (13.0-17.5) gm/dL Hct (39.0-53.0) % RDW (11.5-15.5) % Neutrophils # (1.3-7.7) k/uL Lymphocytes # (1.0-4.8) k/uL PT 30.2 H (9.0-12.0) sec D-Dimer (<0.60) mg/L FEU ABG pH (7.35-7.45) ABG pCO2 34 L (35-45) mmHg ABG pO2 76 L (83-108) mmHg ABG Total CO2 (19-24) mmol/L ABG O2 Saturation (94-97) % Sodium 132 L (137-145) mmol/L Chloride 96 L (98-107) mmol/L BUN 66 H (9-20) mg/dL Creatinine 2.60 H (0.66-1.25) mg/dL Glucose 145 H (74-99) mg/dL POC Glucose (mg/dL) (75-99) mg/dL Plasma Lactic Acid Samir (0.7-2.0) mmol/L Calcium 6.7 L (8.4-10.2) mg/dL Ionized Calcium Guille (4.5-5.3) mg/dL Phosphorus 6.6 H (2.5-4.5) mg/dL Magnesium 2.4 H (1.6-2.3) mg/dL Total Protein 5.4 L (6.3-8.2) g/dL Albumin 2.8 L (3.5-5.0) g/dL Urine Protein (Negative) Urine Bilirubin (Negative) Urine WBC (0-5) /hpf Calcium Oxalate Crystal (None) /hpf Amorphous Sediment (None) /hpf Hyaline Casts (0-2) /lpf Urine Mucus (None) /hpf 10/07/16 Range/Units 12:16 WBC (3.8-10.6) k/uL RBC (4.30-5.90) m/uL Hgb (13.0-17.5) gm/dL Hct (39.0-53.0) % RDW (11.5-15.5) % Neutrophils # (1.3-7.7) k/uL Lymphocytes # (1.0-4.8) k/uL PT (9.0-12.0) sec D-Dimer (<0.60) mg/L FEU ABG pH (7.35-7.45) ABG pCO2 (35-45) mmHg ABG pO2 (83-108) mmHg ABG Total CO2 (19-24) mmol/L ABG O2 Saturation (94-97) % Sodium (137-145) mmol/L Chloride (98-107) mmol/L BUN (9-20) mg/dL Creatinine (0.66-1.25) mg/dL Glucose (74-99) mg/dL POC Glucose (mg/dL) 102 H (75-99) mg/dL Plasma Lactic Acid Samir (0.7-2.0) mmol/L Calcium (8.4-10.2) mg/dL Ionized Calcium Guille (4.5-5.3) mg/dL Phosphorus (2.5-4.5) mg/dL Magnesium (1.6-2.3) mg/dL Total Protein (6.3-8.2) g/dL Albumin (3.5-5.0) g/dL Urine Protein (Negative) Urine Bilirubin (Negative) Urine WBC (0-5) /hpf Calcium Oxalate Crystal (None) /hpf Amorphous Sediment (None) /hpf Hyaline Casts (0-2) /lpf Urine Mucus (None) /hpf Microbiology - Last 24 Hours (Table) 10/06/16 21:00 Gram Stain - Preliminary Sputum Sputum Culture - Preliminary Assessment and Plan Plan: Impression: 1. Transient episodes of altered consciousness, most likely hypoxic event 2. Questionable seizures 3. Respiratory failure, intubated 4. Acute renal failure 5. Recent open-heart surgery for valve replacement Recommendations: Patient is currently intubated and on sedation drip in the intensive care unit. No seizure-like activity is been reported. As you recall , patient does not have any history of seizures. It is likely patient's recurrent episodes of altered consciousness were due to hypoxic events. An EEG has been done and results are pending. His CT of the brain showed no acute findings. Cardiology and Pulmonology are following the patient. Continue medical management. I will continue to follow with you. Further recommendations to follow. I performed an examination of the patient and discussed the management with the [employer]. I have reviewed the [employer]JUST[employer] notes and agree with the findings and plan of care.
[2016-10-07] MEDS: FUROSEMIDE 250 MG in SODIUM CHLORIDE 0.9% 225 ML IVPB SCH (16:40)
[2016-10-07] MEDS: SODIUM CHLORIDE 0.9% 1,000 ML IV SCH (16:41)
[2016-10-07] MEDS ORDERED: Potassium Replacement Protocol 1 EACH MISC MISCELLANE PRN (17:09)
[2016-10-07] MEDS: POTASSIUM CHLORIDE ORAL LIQUID 40 MEQ/30 ML CUP NG-TUBE SCH ×3 (17:55→22:00)
[2016-10-07 17:56] LABS: Glucose,Whole Blood 135 mg/dL (75-99)
--- NOTE | 2016-10-07 18:00 | P.PN ---
<Charisse Croft - Last Filed: 10/07/16 17:52> Subjective Principal diagnosis: Acute hypoxic respiratory failure requiring mechanical ventilation Status post aortic valve replacement, mitral valve repair, modified Frederick maze, mediastinal lymph node biopsy. Patient was intubated overnight, currently sedated, appears to be in no distress. Objective - Vital Signs Vital signs: Vital Signs Temp 99.7 F H 10/07/16 16:00 Pulse 132 H 10/07/16 17:00 Resp 30 H 10/07/16 17:00 BP 149/116 10/07/16 17:00 Pulse Ox 98 10/07/16 17:00 Intake & Output 10/06/16 10/07/16 10/07/16 18:59 06:59 18:59 Intake Total 7153.043 3411.790 Output Total 50 1270 4900 Balance -50 -119.518 -3593.210 Weight 118.1 kg 118.1 kg Intake: IV 217.5 372.5 Piperacillin-Tazobactam 3 87.5 162.5 .375 gm In Dextrose/Water 1 50ml.bag @ 12.5 mls/hr IVPB ONCE [facility] Rx#: [id number] Sodium Chloride 0.9% 1, 130 210 000 ml @ 20 mls/hr IV . Q24H [facility] Rx#:[id number] Intake, IV Titration 932.982 934.290 Amount Calcium Gluconate 2,000 100 mg In Sodium Chloride 0.9 % 100 ml @ 100 mls/hr IVPB ONCE [facility] Rx#: [id number] Norepinephrin 16 mg-0.9% 102.346 Ns Pmx 16 mg In 250 ml @ Titrate IV .Q0M [facility] Rx#: [id number] Norepinephrin 4 mg-0.9% 721.562 250.000 Ns Pmx 4 mg In 250 ml @ Titrate IV .Q0M [facility] Rx#: [id number] Propofol 500 mg In Empty 211.420 231.944 Bag 1 bag @ Titrate IV . Q0M [facility] Rx#:[id number] Vancomycin 1,750 mg In 250 Sodium Chloride 0.9% 250 ml @ 125 mls/hr IVPB Q48H [facility] Rx#:[id number] Output: Gastric Drainage 150 Urine 50 1270 4750 Uretheral (Duong) 50 Other: Voiding Method Indwelling Catheter Indwelling Catheter ABP, PAP, CO, CI - Last Documented Arterial Blood Pressure 93/49 - Constitutional General appearance: Present: no acute distress, obese - Respiratory Details: Lungs sounds diminished bilaterally with faint expiratory wheezes heard the bases. Respirations even, nonlabored on mechanical ventilation. Current settings tidal volume 500, FiO2 60%, respiratory rate 20, PEEP 8. 8.0 ET tube present, 22 at the lip. - Cardiovascular Details: S1, S2 present. Tachycardia rate, irregular rhythm, A. fib with RVR on telemetry. Sternum stable. 2+ bilateral lower extremity edema present. SCDs present. - Gastrointestinal Gastrointestinal Comment(s): Abdomen soft, nondistended, very round. Hypoactive bowel sounds present. OG tube present to low intermittent suction. - Genitourinary Genitourinary Comment(s): Duong present draining clear yellow urine, 125-200 mL per hour. - Integumentary Integumentary Comment(s): Anterior chest incision well approximated. - Psychiatric Psychiatric Comment(s): Sedated on mechanical ventilation. - Labs CBC & Chem 7: 10/07/16 05:18 10/07/16 14:40 Labs: Abnormal Lab Results - Last 24 Hours (Table) 10/06/16 10/06/16 10/06/16 Range/Units 18:30 19:20 19:26 WBC (3.8-10.6) k/uL RBC (4.30-5.90) m/uL Hgb (13.0-17.5) gm/dL Hct (39.0-53.0) % RDW (11.5-15.5) % Neutrophils # (1.3-7.7) k/uL Lymphocytes # (1.0-4.8) k/uL PT (9.0-12.0) sec D-Dimer (<0.60) mg/L FEU ABG pH 7.46 H (7.35-7.45) ABG pCO2 31 L (35-45) mmHg ABG pO2 68 L (83-108) mmHg ABG Total CO2 (19-24) mmol/L ABG O2 Saturation (94-97) % Sodium (137-145) mmol/L Chloride (98-107) mmol/L BUN (9-20) mg/dL Creatinine (0.66-1.25) mg/dL Glucose (74-99) mg/dL POC Glucose (mg/dL) 168 H (75-99) mg/dL Calcium (8.4-10.2) mg/dL Ionized Calcium Guille (4.5-5.3) mg/dL Phosphorus (2.5-4.5) mg/dL Magnesium (1.6-2.3) mg/dL Total Protein (6.3-8.2) g/dL Albumin (3.5-5.0) g/dL Urine Protein Trace H (Negative) Urine Bilirubin 1+ H (Negative) Urine WBC 10 H (0-5) /hpf Calcium Oxalate Crystal Occasional H (None) /hpf Amorphous Sediment Occasional H (None) /hpf Hyaline Casts 79 H (0-2) /lpf Urine Mucus Rare H (None) /hpf 10/06/16 10/06/16 10/06/16 Range/Units 20:09 20:37 20:55 WBC (3.8-10.6) k/uL RBC (4.30-5.90) m/uL Hgb (13.0-17.5) gm/dL Hct (39.0-53.0) % RDW (11.5-15.5) % Neutrophils # (1.3-7.7) k/uL Lymphocytes # (1.0-4.8) k/uL PT (9.0-12.0) sec D-Dimer (<0.60) mg/L FEU ABG pH 7.25 L (7.35-7.45) ABG pCO2 58 H (35-45) mmHg ABG pO2 73 L (83-108) mmHg ABG Total CO2 26 H (19-24) mmol/L ABG O2 Saturation 92.0 L (94-97) % Sodium 130 L (137-145) mmol/L Chloride 94 L (98-107) mmol/L BUN 67 H (9-20) mg/dL Creatinine 2.86 H (0.66-1.25) mg/dL Glucose 138 H (74-99) mg/dL POC Glucose (mg/dL) 164 H (75-99) mg/dL Calcium 6.5 L* (8.4-10.2) mg/dL Ionized Calcium Guille (4.5-5.3) mg/dL Phosphorus 7.1 H (2.5-4.5) mg/dL Magnesium 2.4 H (1.6-2.3) mg/dL Total Protein 5.7 L (6.3-8.2) g/dL Albumin 2.9 L (3.5-5.0) g/dL Urine Protein (Negative) Urine Bilirubin (Negative) Urine WBC (0-5) /hpf Calcium Oxalate Crystal (None) /hpf Amorphous Sediment (None) /hpf Hyaline Casts (0-2) /lpf Urine Mucus (None) /hpf 10/06/16 10/06/16 10/06/16 Range/Units 21:00 21:00 22:10 WBC 31.9 H* (3.8-10.6) k/uL RBC 2.77 L (4.30-5.90) m/uL Hgb 8.2 L (13.0-17.5) gm/dL Hct 26.3 L (39.0-53.0) % RDW 17.8 H (11.5-15.5) % Neutrophils # 29.3 H (1.3-7.7) k/uL Lymphocytes # (1.0-4.8) k/uL PT (9.0-12.0) sec D-Dimer 6.31 H (<0.60) mg/L FEU ABG pH (7.35-7.45) ABG pCO2 (35-45) mmHg ABG pO2 (83-108) mmHg ABG Total CO2 (19-24) mmol/L ABG O2 Saturation (94-97) % Sodium (137-145) mmol/L Chloride (98-107) mmol/L BUN (9-20) mg/dL Creatinine (0.66-1.25) mg/dL Glucose (74-99) mg/dL POC Glucose (mg/dL) (75-99) mg/dL Calcium (8.4-10.2) mg/dL Ionized Calcium Guille 3.7 L (4.5-5.3) mg/dL Phosphorus (2.5-4.5) mg/dL Magnesium (1.6-2.3) mg/dL Total Protein (6.3-8.2) g/dL Albumin (3.5-5.0) g/dL Urine Protein (Negative) Urine Bilirubin (Negative) Urine WBC (0-5) /hpf Calcium Oxalate Crystal (None) /hpf Amorphous Sediment (None) /hpf Hyaline Casts (0-2) /lpf Urine Mucus (None) /hpf 10/07/16 10/07/16 10/07/16 Range/Units 05:16 05:18 05:18 WBC 23.7 H (3.8-10.6) k/uL RBC 2.89 L (4.30-5.90) m/uL Hgb 8.7 L (13.0-17.5) gm/dL Hct 27.3 L (39.0-53.0) % RDW 17.9 H (11.5-15.5) % Neutrophils # 21.4 H (1.3-7.7) k/uL Lymphocytes # 0.9 L (1.0-4.8) k/uL PT 30.2 H (9.0-12.0) sec D-Dimer (<0.60) mg/L FEU ABG pH (7.35-7.45) ABG pCO2 (35-45) mmHg ABG pO2 (83-108) mmHg ABG Total CO2 (19-24) mmol/L ABG O2 Saturation (94-97) % Sodium (137-145) mmol/L Chloride (98-107) mmol/L BUN (9-20) mg/dL Creatinine (0.66-1.25) mg/dL Glucose (74-99) mg/dL POC Glucose (mg/dL) 159 H (75-99) mg/dL Calcium (8.4-10.2) mg/dL Ionized Calcium Guille (4.5-5.3) mg/dL Phosphorus (2.5-4.5) mg/dL Magnesium (1.6-2.3) mg/dL Total Protein (6.3-8.2) g/dL Albumin (3.5-5.0) g/dL Urine Protein (Negative) Urine Bilirubin (Negative) Urine WBC (0-5) /hpf Calcium Oxalate Crystal (None) /hpf Amorphous Sediment (None) /hpf Hyaline Casts (0-2) /lpf Urine Mucus (None) /hpf 10/07/16 10/07/16 10/07/16 Range/Units 05:18 08:30 12:16 WBC (3.8-10.6) k/uL RBC (4.30-5.90) m/uL Hgb (13.0-17.5) gm/dL Hct (39.0-53.0) % RDW (11.5-15.5) % Neutrophils # (1.3-7.7) k/uL Lymphocytes # (1.0-4.8) k/uL PT (9.0-12.0) sec D-Dimer (<0.60) mg/L FEU ABG pH (7.35-7.45) ABG pCO2 34 L (35-45) mmHg ABG pO2 76 L (83-108) mmHg ABG Total CO2 (19-24) mmol/L ABG O2 Saturation (94-97) % Sodium 132 L (137-145) mmol/L Chloride 96 L (98-107) mmol/L BUN 66 H (9-20) mg/dL Creatinine 2.60 H (0.66-1.25) mg/dL Glucose 145 H (74-99) mg/dL POC Glucose (mg/dL) 102 H (75-99) mg/dL Calcium 6.7 L (8.4-10.2) mg/dL Ionized Calcium Guille (4.5-5.3) mg/dL Phosphorus 6.6 H (2.5-4.5) mg/dL Magnesium 2.4 H (1.6-2.3) mg/dL Total Protein 5.4 L (6.3-8.2) g/dL Albumin 2.8 L (3.5-5.0) g/dL Urine Protein (Negative) Urine Bilirubin (Negative) Urine WBC (0-5) /hpf Calcium Oxalate Crystal (None) /hpf Amorphous Sediment (None) /hpf Hyaline Casts (0-2) /lpf Urine Mucus (None) /hpf Microbiology - Last 24 Hours (Table) 10/06/16 21:00 Gram Stain - Preliminary Sputum Sputum Culture - Preliminary - Imaging and Cardiology Chest x-ray: report reviewed, image reviewed Abdominal x-ray: report reviewed, image reviewed Assessment and Plan (1) Status post aortic valve replacement Status: Acute (2) Status post mitral valve repair Status: Acute (3) Acute renal failure Status: Acute (4) Neutrophilic leukocytosis Status: Acute (5) Atrial fibrillation with RVR Status: Acute (6) Histoplasmosis Status: Acute (7) Hypercholesterolemia Status: Acute (8) Hypertension Status: Acute (9) Hypothyroidism (acquired) Status: Acute (10) Obesity Status: Acute (11) Paroxysmal atrial fibrillation Status: Acute Plan: 1. Continue aspirin, Lopressor. 2. Continue amiodarone for A. fib prophylaxis. 3. Daily digoxin dose DC'd, loading dose given. 4. Patient placed on Lasix drip per pulmonology, monitor urine output, labs. 5. Will hold Coumadin for today as INR is 3.1. We will readdress in the morning. 6. Wean levothyroid as tolerated 7. Ventilator management per pulmonology, wean O2 as tolerated. 8. Daily labs, x-rays 9. Strict I/O, daily weights. 10. More recommendations as patient progresses. Time with Patient: Greater than 30 <Mor Lebron - Last Filed: 10/09/16 15:45> Objective - Vital Signs Vital signs: Vital Signs Temp 99.2 F 10/09/16 08:00 Pulse 117 H 10/09/16 15:27 Resp 19 10/09/16 14:00 BP 119/88 10/08/16 05:00 Pulse Ox 96 10/09/16 14:00 Intake & Output 10/08/16 10/09/16 10/09/16 18:59 06:59 18:59 Intake Total 4414.478 3213.090 514 Output Total 2275 2150 1255 Balance -940.483 -844.910 -741 Weight 116.8 kg 112.8 kg 112.8 kg Intake: IV 240 261 184 Pressure Bag 21 24 Sodium Chloride 0.9% 1, 240 240 160 000 ml @ 20 mls/hr IV . Q24H [facility] Rx#:[id number] Intake, IV Titration 2448.803 3207.090 300 Amount Calcium Gluconate 2,000 100 mg In Sodium Chloride 0.9 % 100 ml @ 100 mls/hr IVPB ONCE [facility] Rx#: [id number] Furosemide 250 mg In 179.334 Sodium Chloride 0.9% 225 ml @ 5 MG/HR 5 mls/hr IVPB .Q24H [facility] Rx#: [id number] Norepinephrin 16 mg-0.9% 236.5 500 250 Ns Pmx 16 mg In 250 ml @ Titrate IV .Q0M [facility] Rx#: [id number] Piperacillin-Tazobactam 3 87.5 .375 gm In Dextrose/Water 1 50ml.bag @ 12.5 mls/hr IVPB Q8H [facility] Rx#: [id number] Propofol 500 mg In Empty 238.017 262.256 50 Bag 1 bag @ Titrate IV . Q0M [facility] Rx#:[id number] Vancomycin 1,750 mg In 250 Sodium Chloride 0.9% 250 ml @ 125 mls/hr IVPB Q48H [facility] Rx#:[id number] Tube Feeding 20 15 30 Output: Urine 2275 2150 1255 Other: Voiding Method Indwelling Catheter Indwelling Catheter Indwelling Catheter # Bowel Movements 0 ABP, PAP, CO, CI - Last Documented Arterial Blood Pressure 113/61 - Labs CBC & Chem 7: 10/09/16 05:00 10/09/16 05:00 Labs: Abnormal Lab Results - Last 24 Hours (Table) 10/08/16 10/08/16 10/08/16 Range/Units 18:05 23:45 23:45 WBC (3.8-10.6) k/uL RBC (4.30-5.90) m/uL Hgb (13.0-17.5) gm/dL Hct (39.0-53.0) % MCHC (31.0-37.0) g/dL RDW (11.5-15.5) % Neutrophils # (1.3-7.7) k/uL PT (9.0-12.0) sec ABG pH (7.35-7.45) ABG HCO3 (21-25) mmol/L ABG Total CO2 (19-24) mmol/L ABG O2 Saturation (94-97) % BUN (9-20) mg/dL Creatinine (0.66-1.25) mg/dL Glucose (74-99) mg/dL POC Glucose (mg/dL) 145 H 149 H (75-99) mg/dL Calcium (8.4-10.2) mg/dL Ionized Calcium Guille (4.5-5.3) mg/dL Phosphorus (2.5-4.5) mg/dL Magnesium 2.4 H (1.6-2.3) mg/dL Total Bilirubin (0.2-1.3) mg/dL Total Protein (6.3-8.2) g/dL Albumin (3.5-5.0) g/dL 10/09/16 10/09/16 10/09/16 Range/Units 05:00 05:00 05:00 WBC 16.3 H (3.8-10.6) k/uL RBC 3.29 L (4.30-5.90) m/uL Hgb 9.7 L (13.0-17.5) gm/dL Hct 31.8 L (39.0-53.0) % MCHC 30.5 L (31.0-37.0) g/dL RDW 18.2 H (11.5-15.5) % Neutrophils # 13.2 H (1.3-7.7) k/uL PT 25.2 H (9.0-12.0) sec ABG pH (7.35-7.45) ABG HCO3 (21-25) mmol/L ABG Total CO2 (19-24) mmol/L ABG O2 Saturation (94-97) % BUN 50 H (9-20) mg/dL Creatinine 1.40 H (0.66-1.25) mg/dL Glucose 145 H (74-99) mg/dL POC Glucose (mg/dL) (75-99) mg/dL Calcium 6.8 L (8.4-10.2) mg/dL Ionized Calcium Guille 3.7 L (4.5-5.3) mg/dL Phosphorus 5.0 H (2.5-4.5) mg/dL Magnesium (1.6-2.3) mg/dL Total Bilirubin 1.5 H (0.2-1.3) mg/dL Total Protein 5.9 L (6.3-8.2) g/dL Albumin 2.8 L (3.5-5.0) g/dL 10/09/16 10/09/16 10/09/16 Range/Units 05:11 09:42 13:04 WBC (3.8-10.6) k/uL RBC (4.30-5.90) m/uL Hgb (13.0-17.5) gm/dL Hct (39.0-53.0) % MCHC (31.0-37.0) g/dL RDW (11.5-15.5) % Neutrophils # (1.3-7.7) k/uL PT (9.0-12.0) sec ABG pH 7.46 H (7.35-7.45) ABG HCO3 26 H (21-25) mmol/L ABG Total CO2 27 H (19-24) mmol/L ABG O2 Saturation 98.0 H (94-97) % BUN (9-20) mg/dL Creatinine (0.66-1.25) mg/dL Glucose (74-99) mg/dL POC Glucose (mg/dL) 160 H 150 H (75-99) mg/dL Calcium (8.4-10.2) mg/dL Ionized Calcium Guille (4.5-5.3) mg/dL Phosphorus (2.5-4.5) mg/dL Magnesium (1.6-2.3) mg/dL Total Bilirubin (0.2-1.3) mg/dL Total Protein (6.3-8.2) g/dL Albumin (3.5-5.0) g/dL Microbiology - Last 24 Hours (Table) 10/06/16 21:00 Gram Stain - Preliminary Sputum Sputum Culture - Preliminary Haemophilus influenzae Gram Neg Bacilli Assessment and Plan Plan: Radiological and clinical evidence of sternal dehiscence that seems sterile. Will obtain CT Chest once clinically possible before further planning.
[2016-10-07] MEDS: SENNOSIDES 8.6 MG TAB PO SCH (20:43)
[2016-10-07 21:43] LABS: Hemoglobin A1C 5.8 % (4.2-6.1)
--- NOTE | 2016-10-07 21:54 | P.PN ---
Subjective Principal diagnosis: Respiratory failure This is a 71-year-old male who came in the hospital on September 23 and underwent a JAYDE and heart catheterization showing a ruptured chordae tendonae, mitral regurgitation, moderate pulmonary hypertension, with history of paroxysmal atrial fibrillation and heart failure. 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 With this the patient was initiated to itraconazole. He however developed atrial fibrillation. Because of this he was initiated to amiodarone. The dose of itraconazole was reduced by 50%. There is no evidence of any ulcerations of the QT interval while he was in hospital. He eventually was discharged home. It is related that he was not able to obtain the itraconazole. In this is going to be addressed in the coming days. However the brought him to the emergency room feeling very short of breath. He was having abdominal distention with increasing shortness of breath. Through his stay in emergency center he continues to feel more more short of breath. He was Intensive care unit. There are there was evidence of respiratory failure. ABG was performed that showed evidence of a low PaO2. Anesthesia was called and the patient was intubated. After intubation he settles and had improved oxygenation. With concerns to underlying infection pressure was requested. More stable today. Objective - Vital Signs Vital signs: Vital Signs Temp 99.4 F 10/07/16 20:30 Pulse 144 H 10/07/16 20:30 Resp 20 10/07/16 20:30 BP 68/56 10/07/16 20:30 Pulse Ox 96 10/07/16 20:30 Intake & Output 10/07/16 10/07/16 10/08/16 06:59 18:59 06:59 Intake Total 9667.821 4099.790 184.534 Output Total 1270 5010 385 Balance -119.518 -3683.210 -200.466 Weight 118.1 kg 118.1 kg Intake: IV 217.5 392.5 40 Piperacillin-Tazobactam 3 87.5 162.5 .375 gm In Dextrose/Water 1 50ml.bag @ 12.5 mls/hr IVPB ONCE STA Rx#: [id number] Sodium Chloride 0.9% 1, 130 230 40 000 ml @ 20 mls/hr IV . Q24H [facility] Rx#:[id number] Intake, IV Titration 932.982 934.290 144.534 Amount Calcium Gluconate 2,000 100 mg In Sodium Chloride 0.9 % 100 ml @ 100 mls/hr IVPB ONCE ONE Rx#: [id number] Norepinephrin 16 mg-0.9% 102.346 144.534 Ns Pmx 16 mg In 250 ml @ Titrate IV .Q0M [facility] Rx#: [id number] Norepinephrin 4 mg-0.9% 721.562 250.000 Ns Pmx 4 mg In 250 ml @ Titrate IV .Q0M [facility] Rx#: [id number] Propofol 500 mg In Empty 211.420 231.944 Bag 1 bag @ Titrate IV . Q0M [facility] Rx#:[id number] Vancomycin 1,750 mg In 250 Sodium Chloride 0.9% 250 ml @ 125 mls/hr IVPB Q48H [facility] Rx#:[id number] Output: Gastric Drainage 150 Urine 1270 4860 385 Other: Voiding Method Indwelling Catheter Indwelling Catheter ABP, PAP, CO, CI - Last Documented Arterial Blood Pressure 107/55 - Exam This is a 71-year-old male. Supine in bed with evidence intubated and mechanically ventilated. HEENT: Head is atraumatic, normocephalic. Pupils equal, round. Sclerae is anicteric. Conjunctiva slightly pale. Mucous membranes of the mouth are moist. No thrush noted. Around the endotracheal tube NECK: Supple. No JVD. No lymphadenopathy. No thyromegaly. LUNGS: Coarse rhonchi. No intercostal retractions. There are coarse crackles throughout the lung elam few wheezes were heard HEART: Irregular with no no murmur Dressing on sternal wound with no breakthrough bleeding or drainage. Right sided pleural chest tube in place. ABDOMEN: Distinctly distended. Few bowel sounds are noted. Organomegaly is not detected. EXTREMITIES: +1 bilateral pedal edema. No calf tenderness. ORLIN hose in place. NEUROLOGICAL: Sedated - Labs CBC & Chem 7: 10/07/16 05:18 10/07/16 14:40 Labs: Abnormal Lab Results - Last 24 Hours (Table) 10/06/16 10/06/16 10/07/16 Range/Units 21:00 22:10 05:16 WBC 31.9 H* (3.8-10.6) k/uL RBC 2.77 L (4.30-5.90) m/uL Hgb 8.2 L (13.0-17.5) gm/dL Hct 26.3 L (39.0-53.0) % RDW 17.8 H (11.5-15.5) % Neutrophils # 29.3 H (1.3-7.7) k/uL Lymphocytes # (1.0-4.8) k/uL PT (9.0-12.0) sec ABG pCO2 (35-45) mmHg ABG pO2 (83-108) mmHg Sodium (137-145) mmol/L Chloride (98-107) mmol/L BUN (9-20) mg/dL Creatinine (0.66-1.25) mg/dL Glucose (74-99) mg/dL POC Glucose (mg/dL) 159 H (75-99) mg/dL Calcium (8.4-10.2) mg/dL Ionized Calcium Guille 3.7 L (4.5-5.3) mg/dL Phosphorus (2.5-4.5) mg/dL Magnesium (1.6-2.3) mg/dL Total Protein (6.3-8.2) g/dL Albumin (3.5-5.0) g/dL 10/07/16 10/07/16 10/07/16 Range/Units 05:18 05:18 05:18 WBC 23.7 H (3.8-10.6) k/uL RBC 2.89 L (4.30-5.90) m/uL Hgb 8.7 L (13.0-17.5) gm/dL Hct 27.3 L (39.0-53.0) % RDW 17.9 H (11.5-15.5) % Neutrophils # 21.4 H (1.3-7.7) k/uL Lymphocytes # 0.9 L (1.0-4.8) k/uL PT 30.2 H (9.0-12.0) sec ABG pCO2 (35-45) mmHg ABG pO2 (83-108) mmHg Sodium 132 L (137-145) mmol/L Chloride 96 L (98-107) mmol/L BUN 66 H (9-20) mg/dL Creatinine 2.60 H (0.66-1.25) mg/dL Glucose 145 H (74-99) mg/dL POC Glucose (mg/dL) (75-99) mg/dL Calcium 6.7 L (8.4-10.2) mg/dL Ionized Calcium Guille (4.5-5.3) mg/dL Phosphorus 6.6 H (2.5-4.5) mg/dL Magnesium 2.4 H (1.6-2.3) mg/dL Total Protein 5.4 L (6.3-8.2) g/dL Albumin 2.8 L (3.5-5.0) g/dL 10/07/16 10/07/16 10/07/16 Range/Units 08:30 12:16 17:54 WBC (3.8-10.6) k/uL RBC (4.30-5.90) m/uL Hgb (13.0-17.5) gm/dL Hct (39.0-53.0) % RDW (11.5-15.5) % Neutrophils # (1.3-7.7) k/uL Lymphocytes # (1.0-4.8) k/uL PT (9.0-12.0) sec ABG pCO2 34 L (35-45) mmHg ABG pO2 76 L (83-108) mmHg Sodium (137-145) mmol/L Chloride (98-107) mmol/L BUN (9-20) mg/dL Creatinine (0.66-1.25) mg/dL Glucose (74-99) mg/dL POC Glucose (mg/dL) 102 H 135 H (75-99) mg/dL Calcium (8.4-10.2) mg/dL Ionized Calcium Guille (4.5-5.3) mg/dL Phosphorus (2.5-4.5) mg/dL Magnesium (1.6-2.3) mg/dL Total Protein (6.3-8.2) g/dL Albumin (3.5-5.0) g/dL Microbiology - Last 24 Hours (Table) 10/06/16 21:00 Gram Stain - Preliminary Sputum Sputum Culture - Preliminary Laboratory Results WBC 23.7 k/uL (3.8-10.6) H 10/07/16 05:18 RBC 2.89 m/uL (4.30-5.90) L 10/07/16 05:18 Hgb 8.7 gm/dL (13.0-17.5) L 10/07/16 05:18 Hct 27.3 % (39.0-53.0) L 10/07/16 05:18 MCV 94.4 fL (80.0-100.0) 10/07/16 05:18 MCH 30.2 pg (25.0-35.0) 10/07/16 05:18 MCHC 32.0 g/dL (31.0-37.0) 10/07/16 05:18 RDW 17.9 % (11.5-15.5) H 10/07/16 05:18 Plt Count 373 k/uL (150-450) 10/07/16 05:18 Neutrophils % 90 % 10/07/16 05:18 Lymphocytes % 4 % 10/07/16 05:18 Monocytes % 3 % 10/07/16 05:18 Eosinophils % 1 % 10/07/16 05:18 Basophils % 0 % 10/07/16 05:18 Neutrophils # 21.4 k/uL (1.3-7.7) H 10/07/16 05:18 Lymphocytes # 0.9 k/uL (1.0-4.8) L 10/07/16 05:18 Monocytes # 0.8 k/uL (0-1.0) 10/07/16 05:18 Eosinophils # 0.2 k/uL (0-0.7) 10/07/16 05:18 Basophils # 0.1 k/uL (0-0.2) 10/07/16 05:18 Manual Slide Review Performed 10/06/16 21:00 Large Platelets Present 10/06/16 21:00 Polychromasia Present 10/06/16 21:00 Hypochromasia Slight 10/07/16 05:18 Anisocytosis Slight 10/07/16 05:18 Macrocytosis Slight 10/07/16 05:18 Ovalocytes Present 10/06/16 21:00 PT 30.2 sec (9.0-12.0) H 10/07/16 05:18 INR 3.1 (<1.1) 10/07/16 05:18 APTT 32.8 sec (22.0-30.0) H 10/06/16 09:50 D-Dimer 6.31 mg/L FEU (<0.60) H 10/06/16 21:00 Sample Site A-LINE 10/07/16 08:30 ABG pH 7.43 (7.35-7.45) 10/07/16 08:30 ABG pCO2 34 mmHg (35-45) L 10/07/16 08:30 ABG pO2 76 mmHg (83-108) L 10/07/16 08:30 ABG HCO3 22 mmol/L (21-25) 10/07/16 08:30 ABG Total CO2 23 mmol/L (19-24) 10/07/16 08:30 ABG O2 Saturation 95.5 % (94-97) 10/07/16 08:30 ABG Base Excess -1.6 mmol/L 10/07/16 08:30 FiO2 60 % 10/07/16 08:30 Sodium 132 mmol/L (137-145) L 10/07/16 05:18 Potassium 3.9 mmol/L (3.5-5.1) 10/07/16 14:40 Chloride 96 mmol/L (98-107) L 10/07/16 05:18 Carbon Dioxide 23 mmol/L (22-30) 10/07/16 05:18 Anion Gap 13 mmol/L 10/07/16 05:18 BUN 66 mg/dL (9-20) H 10/07/16 05:18 Creatinine 2.60 mg/dL (0.66-1.25) H 10/07/16 05:18 Est GFR (MDRD) Af Amer 29 (>60 ml/min/1.73 sqM) 10/07/16 05:18 Est GFR (MDRD) Non-Af 24 (>60 ml/min/1.73 sqM) 10/07/16 05:18 Glucose 145 mg/dL (74-99) H 10/07/16 05:18 POC Glucose (mg/dL) 135 mg/dL (75-99) H 10/07/16 17:54 POC Glu [employer] UMESH Charisse Valerio 10/07/16 17:[address] Glu mg/dL 120 mg/dL 10/07/16 05:18 Hemoglobin A1c 5.8 % (4.2-6.1) 10/07/16 05:18 Plasma Lactic Acid Samir 1.0 mmol/L (0.7-2.0) 10/07/16 05:18 Calcium 6.7 mg/dL (8.4-10.2) L 10/07/16 05:18 Ionized Calcium Guille 3.7 mg/dL (4.5-5.3) L 10/06/16 22:10 Phosphorus 6.6 mg/dL (2.5-4.5) H 10/07/16 05:18 Magnesium 2.4 mg/dL (1.6-2.3) H 10/07/16 05:18 Total Bilirubin 1.2 mg/dL (0.2-1.3) 10/07/16 05:18 AST 46 U/L (17-59) 10/07/16 05:18 ALT 47 U/L (21-72) 10/07/16 05:18 Alkaline Phosphatase 70 U/L (38-126) 10/07/16 05:18 Total Creatine Kinase 736 U/L (55-170) H 10/06/16 09:50 CK-MB (CK-2) 7.2 ng/mL (0.0-2.4) H* 10/06/16 09:50 CK-MB (CK-2) Rel Index 1.0 10/06/16 09:50 Troponin I 1.510 ng/mL (0.000-0.034) H* 10/06/16 09:50 NT-Pro-B Natriuret Pep 6520 pg/mL 10/06/16 09:50 Total Protein 5.4 g/dL (6.3-8.2) L 10/07/16 05:18 Albumin 2.8 g/dL (3.5-5.0) L 10/07/16 05:18 TSH 32.400 mIU/L (0.465-4.680) H 10/06/16 09:50 Free T4 0.88 ng/dL (0.78-2.19) 10/06/16 09:50 Urine Color Dark Yellow 10/06/16 18:30 Urine Appearance Cloudy (Clear) 10/06/16 18:30 Urine pH 5.0 (5.0-8.0) 10/06/16 18:30 Ur Specific [place] 1.018 (1.001-1.035) 10/06/16 18:30 Urine Protein Trace (Negative) H 10/06/16 18:30 Urine Glucose (UA) Negative (Negative) 10/06/16 18:30 Urine Ketones Negative (Negative) 10/06/16 18:30 Urine Blood Negative (Negative) 10/06/16 18:30 Urine Nitrite Negative (Negative) 10/06/16 18:30 Urine Bilirubin 1+ (Negative) H 10/06/16 18:30 Urine Urobilinogen 4.0 mg/dL (<2.0) 10/06/16 18:30 Ur Leukocyte Esterase Negative (Negative) 10/06/16 18:30 Urine WBC 10 /hpf (0-5) H 10/06/16 18:30 Ur Squamous Epith Cells 2 /hpf (0-4) 10/06/16 18:30 Calcium Oxalate Crystal Occasional /hpf (None) H 10/06/16 18:30 Amorphous Sediment Occasional /hpf (None) H 10/06/16 18:30 Hyaline Casts 79 /lpf (0-2) H 10/06/16 18:30 Urine Mucus Rare /hpf (None) H 10/06/16 18:30 Microbiology 10/06/16 21:00 Sputum Gram Stain - Preliminary 10/06/16 21:00 Sputum Sputum Culture - Preliminary 10/06/16 10:00 Blood Blood Culture - Preliminary No Growth after 24 hours Assessment and Plan (1) Acute respiratory failure Narrative/Plan: 71-year-old male with history of thyroid cancer recently was hospitalized at which point in time was having difficulties with congestive heart failure. He was noted evidence of aortic valve insufficiency and mitral valve regurgitation. There is also some lymphadenopathy noted within the chest. As he was taken to the operating room and aortic valve replacement occurred as well as mitral valve repair. Biopsy of mediastinal lymph nodes also occurred. 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 Patient was initiated to itraconazole. He however developed atrial fibrillation and was placed on amiodarone and the itraconazole dose was reduced. Upon discharge he has not been able to continue the itraconazole. However is only been home for a very short period of time we developed the progressive shortness of breath. This time it appears he has extensive edema in his abdominal cavity as well as evidence of congestive heart failure. Concerns to pneumonia given his significant leukocytosis and antibiotic therapy was begun with piperacillin tazobactam and vancomycin while cultures are in process. Ongoing aggressive supportive care is continuing Cardiothoracic surgery will be in to see him Case has been discussed with pulmonary critical care. He has acute renal failure and a CT pulmonary angiography cannot be performed consequently a d- dimer was requested, with some concerns to pulmonary embolism. The acidosis is improved. The severe leukocytosis is improving. Continue current antibiotic therapy while he is being resuscitated and while cultures are in process. Status: Acute (2) Status post aortic valve replacement Status: Acute (3) Status post mitral valve repair Status: Acute (4) Histoplasmosis Status: Acute
--- NOTE | 2016-10-07 22:06 | PCN ---
DATE OF PROCEDURE: PROCEDURE PERFORMED: Placement of a right triple lumen catheter in the right femoral vein. PREOPERATIVE DIAGNOSIS: Acute respiratory failure and hypotension. POSTOPERATIVE DIAGNOSIS: Acute respiratory failure and hypotension. Anesthesia used: 2 mL of 1% lidocaine. PROCEDURE: Patient was placed in a supine position. The right groin was prepared in a sterile fashion and drapes were applied. The area was locally anesthetized with 2 mL of lidocaine. Then the right femoral vein was easily cannulated, and the guidewire was placed. A triple-lumen catheter was inserted over the guidewire, and the guidewire was removed. Good blood flow in the 3 different ports of the triple-lumen catheter were noted. Line was secured using 3-0 silk sutures. No evidence of any immediate complications.
[2016-10-08] MEDS: INSULIN LISPRO (humaLOG) 300 UNIT/3 ML VIAL SQ SCH ×4 (01:00→18:07)
[2016-10-08] MEDS: PROPOFOL 500 MG in EMPTY BAG 1 BAG IV SCH ×11 (01:10→23:19)
[2016-10-08] MEDS ORDERED: PROPOFOL 10 MG/ML 50 ML VIAL IV ONE (02:45)
[2016-10-08] MEDS: IPRATROPIUM 0.5 MG/2.5 ML NEBU INHALATION SCH ×6 (03:15→23:32)
[2016-10-08] MEDS: LEVALBUTEROL NEB (CONC) 1.25 MG/0.5 ML AMP INHALATION SCH ×6 (03:15→23:32)
--- NOTE | 2016-10-08 04:19 | CONS ---
DATE OF CONSULTATION: Mr. Jn Stevenson is a 71-year-old gentleman who was recently discharged from the hospital after having an aortic valve replacement with a tissue valve, mitral valve repair and a Maze procedure. He did not have any obstructive CAD. At the time of discharge, he was doing fairly well, was ambulating without symptoms. Chest x-ray revealed some blunting of the left costophrenic angle. However, he came into the hospital with an episode of what seemed like a seizure activity. Apparently he was coughing and then suddenly became unresponsive and then later on came back around. By the time EMS arrived, he looked postictal. However, he also two such spells in the emergency room and it appears that cough seems to be make him bradycardic and there was a cough, syncope-type presentation. However, his shortness of breath, progressively got worse and he was exhausted. Subsequently, after he arrived in the hospital, he appeared to be confused and after arrival, he appeared to be hypoxic requiring 6 liters of oxygen by nasal cannula. He was also in atrial fibrillation with a rapid ventricular rate, which is not unusual for him. He is known to have atrial fibrillation before. He arrived in the emergency room and in the emergency room, he was having difficulty breathing and because of his worsening condition, he was intubated and placed in mechanical ventilator. The patient is unable to give me any history, and most of the information obtained from the chart. He had an echocardiogram that was performed today which revealed that LV systolic function is good. Aortic valve bioprosthesis is good mitral valve repair is well sustained. There is no evidence of any pulmonary hypertension. Chest x-ray suggests pulmonary vascular congestion, but the BNP is not significantly elevated to the same extent as his chest x-ray appearance. However, the possibility of infection and atelectasis and pulmonary embolism should still be considered. However, he has been well anticoagulated and d-dimer upon arrival was elevated. Patient has atrial fibrillation and rapid ventricular rate and is oxygenating suboptimally overall. Please refer to the recent chart for all the other information. On examination, the blood pressure was 110/60. He is on Levophed at a fairly high dose. He is also on antibiotics. Heart exam reveals S1, S2 with a short systolic murmur. Lungs reveal diffuse rales and respiratory rhonchi bilaterally. Abdomen is soft. Rest of physical examination is unchanged. IMPRESSION: 1. Acute respiratory failure, probably secondary to pneumonia or a noncardiogenic pulmonary edema. He may have congestive heart failure but I believe this is less of his problem at this time. Possibility of a noncardiogenic pulmonary edema or pneumonia should be considered as a higher priority. 2. Elevated BUN and creatinine probably reflection of chronic kidney disease as well as some acute component. 3. Status post mitral valve repair, aortic valve replacement and Maze procedure. Echo suggests that the valves are functioning normally, RECOMMENDATIONS: I discussed with Dr. Gaffney and he believes that patient should be on Lasix drip at least for 24 hours and we will therefore continue this. He has also had a septic work-up as well as antibiotic coverage. Prognosis for this patient appears quite guarded. Based on clinical course, I will make further recommendations. We will also await input from Dr. Lebron who is going to see the patient today. Thank you very much for the consult.
[2016-10-08 04:20] LABS: Glucose,Whole Blood 157 mg/dL (75-99)
[2016-10-08 05:04] LABS: INR 3.2 (<1.1); Prothrombin Time 31.3 sec (9.0-12.0)
[2016-10-08 05:31] LABS: Anisocytosis Slight; CH 29.9; CHCM 31.6; HCT 30.1 % (39.0-53.0); HDW 3.35; HGB 9.3 gm/dL (13.0-17.5); Hypochromasia Moderate; MCH 29.5 pg (25.0-35.0); MCHC 30.9 g/dL (31.0-37.0); MCV 95.4 fL (80.0-100.0); Macrocytosis Slight; Mean Platelet Volume 7.6; RBC 3.15 m/uL (4.30-5.90); RDW 17.8 % (11.5-15.5); WBC 18.8 k/uL (3.8-10.6); WBC (Perox) 20.05
[2016-10-08] MEDS: PIPERACILLIN-TAZOBACTAM 3.375 GM in DEXTROSE/WATER 1 50ML.BAG IVPB SCH ×3 (05:35→22:00)
[2016-10-08 05:40] LABS: Calcium 6.9 mg/dL (8.4-10.2); Magnesium 2.5 mg/dL (1.6-2.3); Phosphorous 5.1 mg/dL (2.5-4.5); Potassium 4.5 mmol/L (3.5-5.1); Total Bilirubin 1.5 mg/dL (0.2-1.3); Total Protein 5.9 g/dL (6.3-8.2)
[2016-10-08] MEDS: NOREPINEPHRIN 16 MG-0.9%NS PMX 16 MG/250 ML ML IV SCH ×3 (06:20→22:03)
[2016-10-08] MEDS ORDERED: DIGOXIN 250 MCG/ML 2 ML AMP IVP ONE (06:30)
[2016-10-08 06:51] LABS: Glucose,Whole Blood 162 mg/dL (75-99)
--- NOTE | 2016-10-08 07:06 | EEG ---
DATE OF SERVICE: 10/06/2016 INDICATIONS FOR EXAMINATION: Recurrent syncope. Atypical spells. AGE: 71Y DESCRIPTION OF PROCEDURE: This EEG was performed using a 21 channel digital electroencephalograph, following international 10-20 system. DESCRIPTION OF THE RECORDING: From the beginning of the tracing, with the patient's eyes closed, the background rhythm was mostly consisting of 9 Hz alpha frequency in the posterior occipital leads. No obvious asymmetry is seen. Frequent muscle artifacts and movement artifacts are seen. Lead artifacts are also noticed. Photic stimulation was performed with a minimal driving response seen. No pathological waves were elicited. Hyperventilation was not performed. The patient remains awake throughout the tracing. No epileptiform discharges were seen. His EKG lead showed tachycardic rate with irregular rhythm. INTERPRETATION: This awake EEG can be considered within normal limits except his EKG lead showed an irregularly irregular rhythm. No epileptiform discharges were seen. The absence of epileptiform discharges does not rule out the diagnosis of epilepsy. Therefore, clinical correlation is recommended.
[2016-10-08] MEDS ORDERED: CALCIUM GLUCONATE 2,000 MG in SODIUM CHLORIDE 0.9% 100 ML IVPB ONE (07:30)
--- NOTE | 2016-10-08 07:46 | XR ---
EXAMINATION TYPE: XR chest 1V portable DATE OF EXAM: 10/08/2016 7:00 AM COMPARISON: 10/07/2016 HISTORY: SOB, Follow Up FINDINGS: Indwelling tubes and catheters are unchanged. Improving basilar infiltrates and pleural effusions. Stable appearance of the cardio-mediastinal structures at this time. Continued pulmonary venous conge stion and superimposed features of congestive failure. Pleural effusion unchanged. IMPRESSION: 1. Continued features of congestive failure. Basilar infiltrates and effusions appear to have improve d somewhat. Clinical correlation and follow up until resolution is recommended.
[2016-10-08] MEDS ORDERED: VANCOMYCIN 1,750 MG in SODIUM CHLORIDE 0.9% 250 ML IVPB SCH (08:00)
[2016-10-08 08:46] LABS: ABG PH 7.44 (7.35-7.45)
[2016-10-08 08:47] LABS: ABG Base Excess 0.5 mmol/L; ABG HCO3 24 mmol/L (21-25); ABG Oxygen Saturation 96.3 % (94-97); ABG PCO2 36 mmHg (35-45); ABG PO2 80 mmHg (83-108); ABG TCO2 25 mmol/L (19-24)
[2016-10-08 08:48] LABS: Add Differential Manual Differential
[2016-10-08 08:54] LABS: Band Neutrophils % 0.5 %; Manual Review Performed; Myelocytes % 0.5 %; Nucleated Red Blood Cells 0 /100 WBC (0-0); Polychromasia Present; Total Cells Counted 200
[2016-10-08] MEDS ORDERED: DIGOXIN 125 MCG TAB PO SCH (09:00)
[2016-10-08] MEDS: DOCUSATE ORAL SOLN 100 MG/10 ML CUP PO SCH ×2 (09:11→22:01)
[2016-10-08] MEDS: CHLORHEXIDINE GLUCONATE 15 ML CUP MUCOUS MEM SCH ×2 (09:12→22:00)
[2016-10-08] MEDS: AMIODARONE 200 MG TAB PO SCH ×2 (09:12→22:00)
[2016-10-08] MEDS: METOPROLOL TARTRATE 25 MG TAB PO SCH ×2 (10:08→22:01)
--- NOTE | 2016-10-08 10:47 | CDI ---
In responding to this query, please exercise your independent professional judgment. The [facility] Coding Staff and Clinical Documentation Specialists appreciate your assistance in clarifying documentation, maintaining compliance with coding guidelines, accurately documenting patients condition and capturing severity of illness. The fact that a question is asked does not imply that any particular answer is desired or expected. Communication forms are a method of clarifying documentation and are not made part of the Legal Health Record. Thank you in advance for your clarification. Last Revision, April 2015 Janeth Perez [address] [facility] [place] [address] Documentation Clarification Form Date: 10/08/2016 10:27:00 AM From: Gerson Sawyer, RN, BSN, CDS Admit Date: 10/06/2016 11:17:00 AM Patient Name: Jn Stevenson Visit Number: [id number] Dr. Alcon Dillon: "Acute Hypoxic respiratory failure" was documented in the ID consult, pulmonary consult, and cardiology consult. The diagnosis was not documented in the ED impressions or the general surgery H&P. History/Risk Factors: 71 yo obese male with recent history of atrial valve replacement, mitral valve repair, parox Afib, moderate pulmonary HTN and history of smoking presents via EMS for what appeared to be seizure activity. On EMS arrival, his Spo2 was noted to be 88% on RA and he was having DARYA. Clinical Indicators: initial AB.46/31/68/21/22/44% CXR: findings c/w CHF exacerbation redemonstrated as there is cardiomegaly w mild-moderate central vascular congestion and small to moderate sized b/l pleural effusions. Treatment: mechanical ventilation, ICU, ABG, Lasix gtt, Vanco, Zosyn, duonebs Per ID consult: "transient epidoses of altered consciousness most likely hypoxic event, questionable seizures" For each diagnosis, documentation must be clear to determine if the condition was present at the time of the patients inpatient admission or developed during the hospital stay. Definition of Present on Admission (POA): A diagnosis present at the time the order for admission to inpatient status was written. Please clarify in progress notes as to whether the acute hypoxic respiratory failure was: POA = Yes, the condition was present at the time of the order for inpatient admission. Not POA= No, the condition was not present at the time of the order for inpatient admission. Clinically undetermined if the condition was present at the time of the order for inpatient admission. Please continue to document in your progress notes and discharge summary in order to capture severity of illness and risk of mortality. Include clinical findings that support your diagnosis. FYI: Press F11 to launch patient chart. WILSON
--- NOTE | 2016-10-08 11:16 | US ---
EXAMINATION TYPE: US chest DATE OF EXAM: 10/08/2016 11:05 AM COMPARISON: NONE CLINICAL HISTORY: bilateral pleural effusions. EXAM MEASUREMENTS: Right Pleural Effusion fluid pocket: 5.6 cm Right skin to fluid thickness: 1.7 cm Left Pleural Effusion fluid pocket: 6.1 cm Left skin to fluid thickness: 1.4 cm Right side marked for possible thoracentesis outside the dept. Left side marked for possible thoracentesis outside the dept. Pulmonologists are able to review the images in the patient?s EMR. IMPRESSIONS: Pleural effusions as noted
[2016-10-08 11:32] LABS: Glucose,Whole Blood 146 mg/dL (75-99)
--- NOTE | 2016-10-08 11:48 | P.PN ---
<Charisse Croft - Last Filed: 10/08/16 11:41> Subjective Principal diagnosis: Acute hypoxic respiratory failure requiring mechanical ventilation Status post aortic valve replacement, mitral valve repair, modified Frederick maze, mediastinal lymph node biopsy. Remains sedated on mechanical ventilation. Objective - Vital Signs Vital signs: Vital Signs Temp 99.4 F 10/08/16 08:00 Pulse 117 H 10/08/16 11:29 Resp 27 H 10/08/16 11:00 BP 119/88 10/08/16 05:00 Pulse Ox 97 10/08/16 11:00 Intake & Output 10/07/16 10/08/16 10/08/16 18:59 06:59 18:59 Intake Total 1372.546 809.314 790.850 Output Total 5010 2360 900 Balance -3637.454 -1550.686 -109.150 Weight 118.1 kg 116.8 kg 116.8 kg Intake: IV 392.5 240 100 Piperacillin-Tazobactam 3 162.5 .375 gm In Dextrose/Water 1 50ml.bag @ 12.5 mls/hr IVPB ONCE [facility] Rx#: [id number] Sodium Chloride 0.9% 1, 230 240 100 000 ml @ 20 mls/hr IV . Q24H [facility] Rx#:[id number] Intake, IV Titration 980.046 509.314 690.850 Amount Calcium Gluconate 2,000 100 mg In Sodium Chloride 0.9 % 100 ml @ 100 mls/hr IVPB ONCE [facility] Rx#: [id number] Calcium Gluconate 2,000 100 mg In Sodium Chloride 0.9 % 100 ml @ 100 mls/hr IVPB ONCE [facility] Rx#: [id number] Norepinephrin 16 mg-0.9% 102.346 395.654 Ns Pmx 16 mg In 250 ml @ Titrate IV .Q0M [facility] Rx#: [id number] Norepinephrin 4 mg-0.9% 250.000 Ns Pmx 4 mg In 250 ml @ Titrate IV .Q0M [facility] Rx#: [id number] Propofol 500 mg In Empty 277.700 113.660 90.850 Bag 1 bag @ Titrate IV . Q0M [facility] Rx#:[id number] Vancomycin 1,750 mg In 250 250 Sodium Chloride 0.9% 250 ml @ 125 mls/hr IVPB Q48H [facility] Rx#:[id number] Other 60 Output: Gastric Drainage 150 Urine 4860 2360 900 Other: Voiding Method Indwelling Catheter Indwelling Catheter ABP, PAP, CO, CI - Last Documented Arterial Blood Pressure 88/36 - Constitutional General appearance: Present: no acute distress, obese - Respiratory Details: Lungs sounds diminished bilaterally with coarse breath sounds in bilateral bases. Remains on mechanical ventilation. Current settings assist control, tidal volume 500, FiO2 60%, respiratory rate 20, PEEP 8. - Cardiovascular Details: S1, S2 present. Irregular, tachycardia rate and rhythm, atrial fibrillation with rapid ventricular response. Proximal sternum doesn't feel well approximated when pressing on it. Notation of sternal wire position on chest x- ray. Trace bilateral lower extremity edema still present. Heart hugger in place and tightened to protect sternum. SCDs present. - Gastrointestinal Gastrointestinal Comment(s): Abdomen soft, nontender, nondistended, very round. Hypoactive bowel sounds present 4 quadrants. OG tube to low intermittent suction - Genitourinary Genitourinary Comment(s): Duong present draining clear, yellow urine. Urine output 100-200 mL per hour. - Integumentary Integumentary Comment(s): Anterior chest incision well approximated. - Psychiatric Psychiatric Comment(s): Remains sedated on mechanical ventilation. - Allied health notes Allied health notes reviewed: nursing - Labs CBC & Chem 7: 10/08/16 04:20 10/08/16 04:20 Labs: Abnormal Lab Results - Last 24 Hours (Table) 10/07/16 10/07/16 10/08/16 Range/Units 12:16 17:54 01:08 WBC (3.8-10.6) k/uL RBC (4.30-5.90) m/uL Hgb (13.0-17.5) gm/dL Hct (39.0-53.0) % MCHC (31.0-37.0) g/dL RDW (11.5-15.5) % Neutrophils # (Manual) (1.3-7.7) k/uL PT (9.0-12.0) sec ABG pO2 (83-108) mmHg ABG Total CO2 (19-24) mmol/L BUN (9-20) mg/dL Creatinine (0.66-1.25) mg/dL Glucose (74-99) mg/dL POC Glucose (mg/dL) 102 H 135 H 157 H (75-99) mg/dL Calcium (8.4-10.2) mg/dL Ionized Calcium Guille (4.5-5.3) mg/dL Phosphorus (2.5-4.5) mg/dL Magnesium (1.6-2.3) mg/dL Total Bilirubin (0.2-1.3) mg/dL AST (17-59) U/L Total Protein (6.3-8.2) g/dL Albumin (3.5-5.0) g/dL 10/08/16 10/08/16 10/08/16 Range/Units 04:20 04:20 04:20 WBC 18.8 H (3.8-10.6) k/uL RBC 3.15 L (4.30-5.90) m/uL Hgb 9.3 L (13.0-17.5) gm/dL Hct 30.1 L (39.0-53.0) % MCHC 30.9 L (31.0-37.0) g/dL RDW 17.8 H (11.5-15.5) % Neutrophils # (Manual) 16.2 H (1.3-7.7) k/uL PT 31.3 H (9.0-12.0) sec ABG pO2 (83-108) mmHg ABG Total CO2 (19-24) mmol/L BUN 60 H (9-20) mg/dL Creatinine 2.01 H (0.66-1.25) mg/dL Glucose 140 H (74-99) mg/dL POC Glucose (mg/dL) (75-99) mg/dL Calcium 6.9 L (8.4-10.2) mg/dL Ionized Calcium Guille (4.5-5.3) mg/dL Phosphorus 5.1 H (2.5-4.5) mg/dL Magnesium 2.5 H (1.6-2.3) mg/dL Total Bilirubin 1.5 H (0.2-1.3) mg/dL AST 60 H (17-59) U/L Total Protein 5.9 L (6.3-8.2) g/dL Albumin 2.9 L (3.5-5.0) g/dL 10/08/16 10/08/16 10/08/16 Range/Units 06:49 07:20 08:42 WBC (3.8-10.6) k/uL RBC (4.30-5.90) m/uL Hgb (13.0-17.5) gm/dL Hct (39.0-53.0) % MCHC (31.0-37.0) g/dL RDW (11.5-15.5) % Neutrophils # (Manual) (1.3-7.7) k/uL PT (9.0-12.0) sec ABG pO2 80 L (83-108) mmHg ABG Total CO2 25 H (19-24) mmol/L BUN (9-20) mg/dL Creatinine (0.66-1.25) mg/dL Glucose (74-99) mg/dL POC Glucose (mg/dL) 162 H (75-99) mg/dL Calcium (8.4-10.2) mg/dL Ionized Calcium Guille 3.7 L (4.5-5.3) mg/dL Phosphorus (2.5-4.5) mg/dL Magnesium (1.6-2.3) mg/dL Total Bilirubin (0.2-1.3) mg/dL AST (17-59) U/L Total Protein (6.3-8.2) g/dL Albumin (3.5-5.0) g/dL 10/08/16 Range/Units 11:30 WBC (3.8-10.6) k/uL RBC (4.30-5.90) m/uL Hgb (13.0-17.5) gm/dL Hct (39.0-53.0) % MCHC (31.0-37.0) g/dL RDW (11.5-15.5) % Neutrophils # (Manual) (1.3-7.7) k/uL PT (9.0-12.0) sec ABG pO2 (83-108) mmHg ABG Total CO2 (19-24) mmol/L BUN (9-20) mg/dL Creatinine (0.66-1.25) mg/dL Glucose (74-99) mg/dL POC Glucose (mg/dL) 146 H (75-99) mg/dL Calcium (8.4-10.2) mg/dL Ionized Calcium Guille (4.5-5.3) mg/dL Phosphorus (2.5-4.5) mg/dL Magnesium (1.6-2.3) mg/dL Total Bilirubin (0.2-1.3) mg/dL AST (17-59) U/L Total Protein (6.3-8.2) g/dL Albumin (3.5-5.0) g/dL Microbiology - Last 24 Hours (Table) 10/06/16 21:00 Gram Stain - Preliminary Sputum Sputum Culture - Preliminary - Imaging and Cardiology Chest x-ray: report reviewed, image reviewed Assessment and Plan (1) Status post aortic valve replacement Status: Acute (2) Status post mitral valve repair Status: Acute (3) Acute renal failure Status: Acute (4) Neutrophilic leukocytosis Status: Acute (5) Atrial fibrillation with RVR Status: Acute (6) Histoplasmosis Status: Acute (7) Hypercholesterolemia Status: Acute (8) Hypertension Status: Acute (9) Hypothyroidism (acquired) Status: Acute (10) Obesity Status: Acute (11) Paroxysmal atrial fibrillation Status: Acute Plan: 1. Continue aspirin, Lopressor. 2. Continue amiodarone for A. fib prophylaxis. 3. Additional digoxin dose given last night. 4. Lasix drip per pulmonology, decreased dosage yesterday, monitor urine output , labs. 5. Will hold Coumadin for today as INR is 3.2. We will readdress daily. 6. Wean levo as tolerated 7. Ventilator management per pulmonology, wean O2 as tolerated. 8. Patient to have ultrasound of chest today for possible thoracentesis per pulmonology. 9. Replace calcium. 10. Daily labs, x-rays 11. Strict I/O, daily weights. 12. More recommendations as patient progresses. Time with Patient: Greater than 30 <Brant Crawford - Last Filed: 10/08/16 16:42> Objective - Vital Signs Vital signs: Vital Signs Temp 99.2 F 10/08/16 15:00 Pulse 122 H 10/08/16 15:51 Resp 24 10/08/16 15:00 BP 119/88 10/08/16 05:00 Pulse Ox 98 10/08/16 15:00 Intake & Output 10/07/16 10/08/16 10/08/16 18:59 06:59 18:59 Intake Total 1372.546 893.358 5667.517 Output Total 5010 2360 1700 Balance -3637.454 -1550.686 -495.483 Weight 118.1 kg 116.8 kg 116.8 kg Intake: IV 392.5 240 180 Piperacillin-Tazobactam 3 162.5 .375 gm In Dextrose/Water 1 50ml.bag @ 12.5 mls/hr IVPB ONCE [facility] Rx#: [id number] Sodium Chloride 0.9% 1, 230 240 180 000 ml @ 20 mls/hr IV . Q24H [facility] Rx#:[id number] Intake, IV Titration 980.046 577.944 8817.517 Amount Calcium Gluconate 2,000 100 mg In Sodium Chloride 0.9 % 100 ml @ 100 mls/hr IVPB ONCE [facility] Rx#: [id number] Calcium Gluconate 2,000 100 mg In Sodium Chloride 0.9 % 100 ml @ 100 mls/hr IVPB [facility]CE [facility] Rx#: [id number] Norepinephrin 16 mg-0.9% 102.346 395.654 236.5 Ns Pmx 16 mg In 250 ml @ Titrate IV .Q0M [facility] Rx#: [id number] Norepinephrin 4 mg-0.9% 250.000 Ns Pmx 4 mg In 250 ml @ Titrate IV .Q0M [facility] Rx#: [id number] Propofol 500 mg In Empty 277.700 113.660 188.017 Bag 1 bag @ Titrate IV . Q0M [facility] Rx#:[id number] Vancomycin 1,750 mg In 250 250 Sodium Chloride 0.9% 250 ml @ 125 mls/hr IVPB Q48H [facility] Rx#:[id number] Other 60 Output: Gastric Drainage 150 Urine 4860 2360 1700 Other: Voiding Method Indwelling Catheter Indwelling Catheter Indwelling Catheter ABP, PAP, CO, CI - Last Documented Arterial Blood Pressure 104/61 - Labs CBC & Chem 7: 10/08/16 04:20 10/08/16 04:20 Labs: Abnormal Lab Results - Last 24 Hours (Table) 10/07/16 10/08/16 10/08/16 Range/Units 17:54 01:08 04:20 WBC 18.8 H (3.8-10.6) k/uL RBC 3.15 L (4.30-5.90) m/uL Hgb 9.3 L (13.0-17.5) gm/dL Hct 30.1 L (39.0-53.0) % MCHC 30.9 L (31.0-37.0) g/dL RDW 17.8 H (11.5-15.5) % Neutrophils # (Manual) 16.2 H (1.3-7.7) k/uL PT (9.0-12.0) sec ABG pO2 (83-108) mmHg ABG Total CO2 (19-24) mmol/L BUN (9-20) mg/dL Creatinine (0.66-1.25) mg/dL Glucose (74-99) mg/dL POC Glucose (mg/dL) 135 H 157 H (75-99) mg/dL Calcium (8.4-10.2) mg/dL Ionized Calcium Guille (4.5-5.3) mg/dL Phosphorus (2.5-4.5) mg/dL Magnesium (1.6-2.3) mg/dL Total Bilirubin (0.2-1.3) mg/dL AST (17-59) U/L Total Protein (6.3-8.2) g/dL Albumin (3.5-5.0) g/dL 10/08/16 10/08/16 10/08/16 Range/Units 04:20 04:20 06:49 WBC (3.8-10.6) k/uL RBC (4.30-5.90) m/uL Hgb (13.0-17.5) gm/dL Hct (39.0-53.0) % MCHC (31.0-37.0) g/dL RDW (11.5-15.5) % Neutrophils # (Manual) (1.3-7.7) k/uL PT 31.3 H (9.0-12.0) sec ABG pO2 (83-108) mmHg ABG Total CO2 (19-24) mmol/L BUN 60 H (9-20) mg/dL Creatinine 2.01 H (0.66-1.25) mg/dL Glucose 140 H (74-99) mg/dL POC Glucose (mg/dL) 162 H (75-99) mg/dL Calcium 6.9 L (8.4-10.2) mg/dL Ionized Calcium Guille (4.5-5.3) mg/dL Phosphorus 5.1 H (2.5-4.5) mg/dL Magnesium 2.5 H (1.6-2.3) mg/dL Total Bilirubin 1.5 H (0.2-1.3) mg/dL AST 60 H (17-59) U/L Total Protein 5.9 L (6.3-8.2) g/dL Albumin 2.9 L (3.5-5.0) g/dL 10/08/16 10/08/16 10/08/16 Range/Units 07:20 08:42 11:30 WBC (3.8-10.6) k/uL RBC (4.30-5.90) m/uL Hgb (13.0-17.5) gm/dL Hct (39.0-53.0) % MCHC (31.0-37.0) g/dL RDW (11.5-15.5) % Neutrophils # (Manual) (1.3-7.7) k/uL PT (9.0-12.0) sec ABG pO2 80 L (83-108) mmHg ABG Total CO2 25 H (19-24) mmol/L BUN (9-20) mg/dL Creatinine (0.66-1.25) mg/dL Glucose (74-99) mg/dL POC Glucose (mg/dL) 146 H (75-99) mg/dL Calcium (8.4-10.2) mg/dL Ionized Calcium Guille 3.7 L (4.5-5.3) mg/dL Phosphorus (2.5-4.5) mg/dL Magnesium (1.6-2.3) mg/dL Total Bilirubin (0.2-1.3) mg/dL AST (17-59) U/L Total Protein (6.3-8.2) g/dL Albumin (3.5-5.0) g/dL Microbiology - Last 24 Hours (Table) 10/06/16 21:00 Gram Stain - Preliminary Sputum Sputum Culture - Preliminary Assessment and Plan Plan: The patient seen and examined. Agree with the above assessment and plan. His EEG was negative for seizure activity. Neurology has signed off. He remains intubated. His chest x-ray still shows Pulmonary edema. Ultrasound was performed by Yeimy today to rule out pleural effusions. He remains in atrial fibrillation with rapid ventricular response despite Lopressor, amiodarone, and digoxin. Cardiology is following. His Coumadin is on hold and his INR is 3.2 today. He remains on high-dose Levophed. His cultures are still pending he is currently on antibiotics as directed by infectious disease. We will begin tube feeds.
--- NOTE | 2016-10-08 12:00 | PN ---
Mr. Stevenson's respiratory condition is modestly improved. His oxygenation is somewhat better. His prerenal function showed also a modest improvement. However, he has significant pleural effusion bilaterally and Dr. Gaffney is considering thoracentesis. I would recommend that we hold the Lopressor, continue amiodarone. Heart rate is in the 110 to 120 range. Overall prognosis remains guarded. He is on a fairly high dose of Levophed. Septic work-up is negative so far. Blood pressure is 110/70, pulse rate is about 110 per minute, irregularly irregular. Short systolic murmur noted at the base. Lungs reveal diminished air entry both sides. Abdomen and lower extremity exam is unchanged. Prognosis remains guarded. Hopefully, he will have thoracentesis today, but the INR is high.
--- NOTE | 2016-10-08 13:43 | P.PN ---
Subjective Principal diagnosis: Acute hypoxic respiratory failure requiring intubation and mechanical ventilation This is a 71-year-old white male who was recently discharged from [facility] following aortic valve replacement and mitral valve repair he also had a mediastinal lymph node positive for histoplasmosis. His postoperative course was relatively uneventful, patient was actually discharged home last Tuesday. Yesterday morning, the called and she was concerned that her may be having seizure-like activity were and the patient went completely stiff, shaking all over, and he was staring blankly. He appeared at the time to be confused, and the 2 days. EMS was called, and the patient was brought into the ER. Upon arrival the patient was noted to be extremely short of breath, relatively hypoxic, and he was requiring at least 6 L of oxygen by nasal cannula. Chest x-ray was suggestive of congestive heart failure, patient was in atrial fibrillation and RVR with heart rate in the 120 range. Patient was already anticoagulated, and his INR was therapeutic upon presentation. At any rate patient was transferred to the ICU, and shortly after he arrived to the ICU, I was notified by the nurse taking care of the patient that he was not doing too well. Patient was struggling to breathe, hence I recommended immediate intubation and placement on mechanical ventilation. I reviewed the chest x-ray, and I felt that the chest x-ray clearly shows pulmonary edema, whether this is cardiogenic or noncardiogenic pulmonary edema it is difficult to tell, however at this point and considering the patient's cardiac history and considering the presentation of atrial fibrillation and RVR, I believe this is cardiogenic unless proven otherwise. Patient was given Lasix yesterday, and he was placed on Lasix drip today. His INR was noted to be elevated, however I was able to place a right triple-lumen catheter in the right groin to avoid the bleeding and if bleeding is noted that could be easily tampo naded. Echocardiogram showed good LV function and according to the protein purification scientist his valves were noted to be unremarkable, patient was placed empirically on antibiotics just in case if we are dealing with underlying pneumonia which is again felt to be less likely considering the acute presentation. Even the issue of histoplasmosis is most likely chronic, and I strongly doubt chronic active histoplasmosis. But the patient was already on itraconazole on outpatient basis. The patient himself is now on mechanical ventilation, intubated, and on propofol drip. Patient was noted to have intermittent episodes of profound hypertension when suctioned. This is noted to be without bradycardia, but the blood pressure completely goes down to the 60s and 70s systolic with minimal suctioning of the endotracheal tube. Reevaluated today on 10/08/2016, patient remains on mechanical ventilation, however he is down to 50% and PEEP of 5. His gases are definitely improved, chest x-ray is showing definite improvement but the pleural effusions bilaterally seem to be a bit larger. This tissue edema seems to be a bit better. Ultrasound of the chest today showed a 5.6 cm pocket on the right side , and a left is pocket of 6.1 cm. INR on this patient remains elevated, and I believe at this point we will continue diuresing the patient rather than going for thoracentesis. ABG this morning showed a pO2 of a 0 pCO2 of 36 pH of 7.44. Leukocytosis seems to be significantly better, the limbs count is 18.8 and it was 31.9 on admission. Electrolytes are normal BUN is down to 60 creatinine is down to 2.01 patient renal profile is improving in spite of the fact that the patient diuresed about 5 L so far on Lasix drip. Patient remains intubated, on propofol drip, and he is requiring norepinephrine for low blood pressure. Heart rate seems to be better controlled, but the patient remains in A. fib with RVR intermittently. Objective - Vital Signs Vital signs: Vital Signs Temp 99.0 F 10/08/16 12:00 Pulse 125 H 10/08/16 12:00 Resp 20 10/08/16 12:00 BP 119/88 10/08/16 05:00 Pulse Ox 99 10/08/16 12:00 Intake & Output 10/07/16 10/08/16 10/08/16 18:59 06:59 18:59 Intake Total 1372.546 809.314 860.850 Output Total 5010 2360 1100 Balance -3637.454 -1550.686 -239.150 Weight 118.1 kg 116.8 kg 116.8 kg Intake: IV 392.5 240 120 Piperacillin-Tazobactam 3 162.5 .375 gm In Dextrose/Water 1 50ml.bag @ 12.5 mls/hr IVPB [facility]CE [facility] Rx#: [id number] Sodium Chloride 0.9% 1, 230 240 120 000 ml @ 20 mls/hr IV . Q24H [facility] Rx#:[id number] Intake, IV Titration 980.046 509.314 740.850 Amount Calcium Gluconate 2,000 100 mg In Sodium Chloride 0.9 % 100 ml @ 100 mls/hr IVPB [facility] Rx#: [id number] Calcium Gluconate 2,000 100 mg In Sodium Chloride 0.9 % 100 ml @ 100 mls/hr IVPB [facility]CE [facility] Rx#: [id number] Norepinephrin 16 mg-0.9% 102.346 395.654 Ns Pmx 16 mg In 250 ml @ Titrate IV .Q0M [facility] Rx#: [id number] Norepinephrin 4 mg-0.9% 250.000 Ns Pmx 4 mg In 250 ml @ Titrate IV .Q0M [facility] Rx#: [id number] Propofol 500 mg In Empty 277.700 113.660 140.850 Bag 1 bag @ Titrate IV . Q0M [facility] Rx#:[id number] Vancomycin 1,750 mg In 250 250 Sodium Chloride 0.9% 250 ml @ 125 mls/hr IVPB Q48H [facility] Rx#:[id number] Other 60 Output: Gastric Drainage 150 Urine 4860 2360 1100 Other: Voiding Method Indwelling Catheter Indwelling Catheter Indwelling Catheter ABP, PAP, CO, CI - Last Documented Arterial Blood Pressure 103/59 - Exam Physical Exam: Revealed a 71-year-old obese, sedated, on mechanical ventilation , endotracheal tube is intact. HEENT:[Neck is supple.] [No neck masses.] [No thyromegaly.] [No JVD.] Chest: [Neck is in the rhonchi noted at the bases. With faint expiratory wheezes] proximal sternum seems to be not well approximated, sternal wires do not seem to be on the same line based on the chest x-ray. Cardiac Exam: [Irregular irregular rhythm Normal S1 and S2, no S3 gallop, no murmur.] Abdomen: [Soft, nontender, no megaly, no rebound, no guarding, normal bowel sounds.] Extremities: [No clubbing, 2+ bipedal edema, no cyanosis.] Neurological Exam: [Cannot be assessed, patient is on mechanical ventilation and propofol drip - Labs CBC & Chem 7: 10/08/16 04:20 10/08/16 04:20 Labs: Abnormal Lab Results - Last 24 Hours (Table) 10/07/16 10/08/16 10/08/16 Range/Units 17:54 01:08 04:20 WBC 18.8 H (3.8-10.6) k/uL RBC 3.15 L (4.30-5.90) m/uL Hgb 9.3 L (13.0-17.5) gm/dL Hct 30.1 L (39.0-53.0) % MCHC 30.9 L (31.0-37.0) g/dL RDW 17.8 H (11.5-15.5) % Neutrophils # (Manual) 16.2 H (1.3-7.7) k/uL PT (9.0-12.0) sec ABG pO2 (83-108) mmHg ABG Total CO2 (19-24) mmol/L BUN (9-20) mg/dL Creatinine (0.66-1.25) mg/dL Glucose (74-99) mg/dL POC Glucose (mg/dL) 135 H 157 H (75-99) mg/dL Calcium (8.4-10.2) mg/dL Ionized Calcium Guille (4.5-5.3) mg/dL Phosphorus (2.5-4.5) mg/dL Magnesium (1.6-2.3) mg/dL Total Bilirubin (0.2-1.3) mg/dL AST (17-59) U/L Total Protein (6.3-8.2) g/dL Albumin (3.5-5.0) g/dL 10/08/16 10/08/16 10/08/16 Range/Units 04:20 04:20 06:49 WBC (3.8-10.6) k/uL RBC (4.30-5.90) m/uL Hgb (13.0-17.5) gm/dL Hct (39.0-53.0) % MCHC (31.0-37.0) g/dL RDW (11.5-15.5) % Neutrophils # (Manual) (1.3-7.7) k/uL PT 31.3 H (9.0-12.0) sec ABG pO2 (83-108) mmHg ABG Total CO2 (19-24) mmol/L BUN 60 H (9-20) mg/dL Creatinine 2.01 H (0.66-1.25) mg/dL Glucose 140 H (74-99) mg/dL POC Glucose (mg/dL) 162 H (75-99) mg/dL Calcium 6.9 L (8.4-10.2) mg/dL Ionized Calcium Guille (4.5-5.3) mg/dL Phosphorus 5.1 H (2.5-4.5) mg/dL Magnesium 2.5 H (1.6-2.3) mg/dL Total Bilirubin 1.5 H (0.2-1.3) mg/dL AST 60 H (17-59) U/L Total Protein 5.9 L (6.3-8.2) g/dL Albumin 2.9 L (3.5-5.0) g/dL 10/08/16 10/08/16 10/08/16 Range/Units 07:20 08:42 11:30 WBC (3.8-10.6) k/uL RBC (4.30-5.90) m/uL Hgb (13.0-17.5) gm/dL Hct (39.0-53.0) % MCHC (31.0-37.0) g/dL RDW (11.5-15.5) % Neutrophils # (Manual) (1.3-7.7) k/uL PT (9.0-12.0) sec ABG pO2 80 L (83-108) mmHg ABG Total CO2 25 H (19-24) mmol/L BUN (9-20) mg/dL Creatinine (0.66-1.25) mg/dL Glucose (74-99) mg/dL POC Glucose (mg/dL) 146 H (75-99) mg/dL Calcium (8.4-10.2) mg/dL Ionized Calcium Guille 3.7 L (4.5-5.3) mg/dL Phosphorus (2.5-4.5) mg/dL Magnesium (1.6-2.3) mg/dL Total Bilirubin (0.2-1.3) mg/dL AST (17-59) U/L Total Protein (6.3-8.2) g/dL Albumin (3.5-5.0) g/dL Microbiology - Last 24 Hours (Table) 10/06/16 21:00 Gram Stain - Preliminary Sputum Sputum Culture - Preliminary Assessment and Plan Plan: Impression: 1 acute hypoxic respiratory failure requiring intubation and mechanical ventilation secondary to cardiogenic or noncardiogenic pulmonary edema however I feel this is more of a cardiogenic pulmonary edema rather than noncardiogenic. Possibility of sepsis and noncardiogenic pulmonary edema isn't different differential, but again felt to be less likely. However the patient will be empirically covered with antibiotics. Until the cultures become available. The leukocytosis upon presentation is a bit concerning., But that seems to be improving and his WBC count is much better today. And Dr. Ramos was consulted to address that issue specifically. 2 status post mitral valve repair and aortic valve replacement as well as mediastinal node biopsy in the last 10 days. 3 acute renal failure, most likely secondary to poor perfusion, especially with the fact that the patient is noted to drop his blood pressure significantly upon coughing and this was witnessed while in the ICU. I believe the patient must have developed acute kidney injury, acute tubular necrosis. 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 5 bilateral pleural effusions, most likely effusions of congestive heart failure , I plan to treat with diuretics rather than thoracentesis at this point, especially with INR being elevated. If the effusion gets any larger, may have to drain with ultrasound guided thoracentesis. 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 7 multiple comorbidities including hypercholesterolemia, hypertension, hypothyroidism, obesity, osteoarthritis, thyroid cancer with previous surgery and radiation, history of rheumatic fever, and history of moderate pulmonary hypertension. Recommendation: Patient will remain on mechanical ventilation, diuretics, bronchodilators, antibiotics empirically, as per infectious disease on the case , no plans to wean today, continue diuresis, continue antibiotics, monitor the pleural effusions bilaterally on a daily basis, and if they get any larger then I would consider thoracentesis after noticing that the INR is down to below 2. Critical care time is 35 minutes. Time with Patient: Greater than 30
--- NOTE | 2016-10-08 16:21 | P.PN ---
Subjective Principal diagnosis: Patient is a 71-year-old male who is being followed by the neurology service for questionable seizures. Patient recently underwent open-heart surgery and had a valve replacement. Patient was at home and started to become very short of breath. Patient had coughing episodes followed by altered consciousness. Patient's stated episodes lasted less than 30 seconds. No post ictal state was reported. Patient was brought to [facility] emergency room for further evaluation. Computed tomography scan of the brain was done which showed generalized atrophy and small vessel ischemic changes. Nursing staff reports no seizure activity since admission. At the time of my evaluation, patient is intubated and sedated on propofol drip. Family is at the bedside. Staff reports patient is not following commands but this may be related to sedation Objective - Vital Signs Vital signs: Vital Signs Temp 99.2 F 10/08/16 15:00 Pulse 122 H 10/08/16 15:51 Resp 24 10/08/16 15:00 BP 119/88 10/08/16 05:00 Pulse Ox 98 10/08/16 15:00 Intake & Output 10/07/16 10/08/16 10/08/16 18:59 06:59 18:59 Intake Total 1372.546 965.240 3537.517 Output Total 5010 2360 1700 Balance -3637.454 -1550.686 -495.483 Weight 118.1 kg 116.8 kg 116.8 kg Intake: IV 392.5 240 180 Piperacillin-Tazobactam 3 162.5 .375 gm In Dextrose/Water 1 50ml.bag @ 12.5 mls/hr IVPB ONCE STA Rx#: [id number] Sodium Chloride 0.9% 1, 230 240 180 000 ml @ 20 mls/hr IV . Q24H [facility] Rx#:[id number] Intake, IV Titration 980.046 934.197 0293.517 Amount Calcium Gluconate 2,000 100 mg In Sodium Chloride 0.9 % 100 ml @ 100 mls/hr IVPB ONCE ONE Rx#: [id number] Calcium Gluconate 2,000 100 mg In Sodium Chloride 0.9 % 100 ml @ 100 mls/hr IVPB ONCE ONE Rx#: [id number] Norepinephrin 16 mg-0.9% 102.346 395.654 236.5 Ns Pmx 16 mg In 250 ml @ Titrate IV .Q0M [facility] Rx#: [id number] Norepinephrin 4 mg-0.9% 250.000 Ns Pmx 4 mg In 250 ml @ Titrate IV .Q0M [facility] Rx#: [id number] Propofol 500 mg In Empty 277.700 113.660 188.017 Bag 1 bag @ Titrate IV . Q0M [facility] Rx#:[id number] Vancomycin 1,750 mg In 250 250 Sodium Chloride 0.9% 250 ml @ 125 mls/hr IVPB Q48H [facility] Rx#:[id number] Other 60 Output: Gastric Drainage 150 Urine 4860 2360 1700 Other: Voiding Method Indwelling Catheter Indwelling Catheter Indwelling Catheter ABP, PAP, CO, CI - Last Documented Arterial Blood Pressure 104/61 - Exam PHYSICAL EXAM: GENERAL APPEARANCE: Patient is a well-developed, male who appears to be in no acute distress. Patient is currently intubated in the ICU setting. HEENT: Normocephalic, atraumatic, no obvious facial asymmetry is seen. CARDIOVASCULAR: Regular rate and rhythm. ABDOMEN: Soft EXTREMITIES: SCDs NEUROLOGICAL EXAM: Patient is currently intubated in the ICU on sedation with propofol drip. Unable to perform meaningful neurological exam. - Labs CBC & Chem 7: 10/08/16 04:20 10/08/16 04:20 Labs: Abnormal Lab Results - Last 24 Hours (Table) 10/07/16 10/08/16 10/08/16 Range/Units 17:54 01:08 04:20 WBC 18.8 H (3.8-10.6) k/uL RBC 3.15 L (4.30-5.90) m/uL Hgb 9.3 L (13.0-17.5) gm/dL Hct 30.1 L (39.0-53.0) % MCHC 30.9 L (31.0-37.0) g/dL RDW 17.8 H (11.5-15.5) % Neutrophils # (Manual) 16.2 H (1.3-7.7) k/uL PT (9.0-12.0) sec ABG pO2 (83-108) mmHg ABG Total CO2 (19-24) mmol/L BUN (9-20) mg/dL Creatinine (0.66-1.25) mg/dL Glucose (74-99) mg/dL POC Glucose (mg/dL) 135 H 157 H (75-99) mg/dL Calcium (8.4-10.2) mg/dL Ionized Calcium Guille (4.5-5.3) mg/dL Phosphorus (2.5-4.5) mg/dL Magnesium (1.6-2.3) mg/dL Total Bilirubin (0.2-1.3) mg/dL AST (17-59) U/L Total Protein (6.3-8.2) g/dL Albumin (3.5-5.0) g/dL 10/08/16 10/08/16 10/08/16 Range/Units 04:20 04:20 06:49 WBC (3.8-10.6) k/uL RBC (4.30-5.90) m/uL Hgb (13.0-17.5) gm/dL Hct (39.0-53.0) % MCHC (31.0-37.0) g/dL RDW (11.5-15.5) % Neutrophils # (Manual) (1.3-7.7) k/uL PT 31.3 H (9.0-12.0) sec ABG pO2 (83-108) mmHg ABG Total CO2 (19-24) mmol/L BUN 60 H (9-20) mg/dL Creatinine 2.01 H (0.66-1.25) mg/dL Glucose 140 H (74-99) mg/dL POC Glucose (mg/dL) 162 H (75-99) mg/dL Calcium 6.9 L (8.4-10.2) mg/dL Ionized Calcium Guille (4.5-5.3) mg/dL Phosphorus 5.1 H (2.5-4.5) mg/dL Magnesium 2.5 H (1.6-2.3) mg/dL Total Bilirubin 1.5 H (0.2-1.3) mg/dL AST 60 H (17-59) U/L Total Protein 5.9 L (6.3-8.2) g/dL Albumin 2.9 L (3.5-5.0) g/dL 10/08/16 10/08/16 10/08/16 Range/Units 07:20 08:42 11:30 WBC (3.8-10.6) k/uL RBC (4.30-5.90) m/uL Hgb (13.0-17.5) gm/dL Hct (39.0-53.0) % MCHC (31.0-37.0) g/dL RDW (11.5-15.5) % Neutrophils # (Manual) (1.3-7.7) k/uL PT (9.0-12.0) sec ABG pO2 80 L (83-108) mmHg ABG Total CO2 25 H (19-24) mmol/L BUN (9-20) mg/dL Creatinine (0.66-1.25) mg/dL Glucose (74-99) mg/dL POC Glucose (mg/dL) 146 H (75-99) mg/dL Calcium (8.4-10.2) mg/dL Ionized Calcium Guille 3.7 L (4.5-5.3) mg/dL Phosphorus (2.5-4.5) mg/dL Magnesium (1.6-2.3) mg/dL Total Bilirubin (0.2-1.3) mg/dL AST (17-59) U/L Total Protein (6.3-8.2) g/dL Albumin (3.5-5.0) g/dL Microbiology - Last 24 Hours (Table) 10/06/16 21:00 Gram Stain - Preliminary Sputum Sputum Culture - Preliminary Assessment and Plan Plan: Impression: 1. Transient episodes of altered consciousness, most likely hypoxic event 2. Questionable seizures 3. Respiratory failure, intubated 4. Acute renal failure 5. Recent open-heart surgery for valve replacement Recommendations: Patient is currently intubated and on sedation drip in the intensive care unit. No seizure-like activity is been reported. As you recall , patient does not have any history of seizures. It is likely patient's recurrent episodes of altered consciousness were due to hypoxic events. An EEG has been done and was normal except for EKG showing irregular rhythm. His CT of the brain showed no acute findings. Cardiology and Pulmonology are following the patient. Continue medical management. I will continue to follow with you on an as-needed basis. Feel free to call with any questions or concerns. Please reconsult if any seizure-like activity is noted. I performed an examination of the patient and discussed the management with the SEED SALES MANAGER. I have reviewed the SEED SALES MANAGER notes and agree with the findings and plan of care.
[2016-10-08 18:08] LABS: Glucose,Whole Blood 145 mg/dL (75-99)
[2016-10-08] MEDS: SODIUM CHLORIDE 0.9% 1,000 ML IV SCH (18:08)
--- NOTE | 2016-10-08 18:09 | P.PN ---
Subjective Principal diagnosis: Respiratory failure This is a 71-year-old male who came in the hospital on September 23 and underwent a JAYDE and heart catheterization showing a ruptured chordae tendonae, mitral regurgitation, moderate pulmonary hypertension, with history of paroxysmal atrial fibrillation and heart failure. 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 With this the patient was initiated to itraconazole. He however developed atrial fibrillation. Because of this he was initiated to amiodarone. The dose of itraconazole was reduced by 50%. There is no evidence of any ulcerations of the QT interval while he was in hospital. He eventually was discharged home. It is related that he was not able to obtain the itraconazole. In this is going to be addressed in the coming days. However the brought him to the emergency room feeling very short of breath. He was having abdominal distention with increasing shortness of breath. Through his stay in emergency center he continues to feel more more short of breath. He was Intensive care unit. There are there was evidence of respiratory failure. ABG was performed that showed evidence of a low PaO2. Anesthesia was called and the patient was intubated. After intubation he settles and had improved oxygenation. With concerns to underlying infection pressure was requested. More stable today.Overall less edema Objective - Vital Signs Vital signs: Vital Signs Temp 99.2 F 10/08/16 15:00 Pulse 134 H 10/08/16 17:00 Resp 20 10/08/16 17:00 BP 119/88 10/08/16 05:00 Pulse Ox 98 10/08/16 17:00 Intake & Output 10/07/16 10/08/16 10/08/16 18:59 06:59 18:59 Intake Total 1372.546 273.992 5906.517 Output Total 5010 2360 2050 Balance -1230.228 -5698.686 -517.249 Weight 118.1 kg 116.8 kg 116.8 kg Intake: IV 392.5 240 220 Piperacillin-Tazobactam 3 162.5 .375 gm In Dextrose/Water 1 50ml.bag @ 12.5 mls/hr IVPB ONCE STA Rx#: [id number] Sodium Chloride 0.9% 1, 230 240 220 000 ml @ 20 mls/hr IV . Q24H [facility] Rx#:[id number] Intake, IV Titration 980.046 947.038 1923.517 Amount Calcium Gluconate 2,000 100 mg In Sodium Chloride 0.9 % 100 ml @ 100 mls/hr IVPB ONCE ONE Rx#: [id number] Calcium Gluconate 2,000 100 mg In Sodium Chloride 0.9 % 100 ml @ 100 mls/hr IVPB ONCE ONE Rx#: [id number] Norepinephrin 16 mg-0.9% 102.346 395.654 236.5 Ns Pmx 16 mg In 250 ml @ Titrate IV .Q0M [facility] Rx#: [id number] Norepinephrin 4 mg-0.9% 250.000 Ns Pmx 4 mg In 250 ml @ Titrate IV .Q0M [facility] Rx#: [id number] Propofol 500 mg In Empty 277.700 113.660 238.017 Bag 1 bag @ Titrate IV . Q0M [facility] Rx#:[id number] Vancomycin 1,750 mg In 250 250 Sodium Chloride 0.9% 250 ml @ 125 mls/hr IVPB Q48H [facility] Rx#:[id number] Other 60 Output: Gastric Drainage 150 Urine 4860 2360 2050 Other: Voiding Method Indwelling Catheter Indwelling Catheter Indwelling Catheter ABP, PAP, CO, CI - Last Documented Arterial Blood Pressure 109/61 - Exam This is a 71-year-old male. Supine in bed with evidence intubated and mechanically ventilated. HEENT: Head is atraumatic, normocephalic. Pupils equal, round. Sclerae is anicteric. Conjunctiva slightly pale. Mucous membranes of the mouth are moist. No thrush noted. Around the endotracheal tube NECK: Supple. No JVD. No lymphadenopathy. No thyromegaly. LUNGS: Coarse rhonchi. No intercostal retractions. There are coarse crackles throughout the lung elam few wheezes were heard HEART: Irregular with no no murmur Dressing on sternal wound with no breakthrough bleeding or drainage. Right sided pleural chest tube in place. ABDOMEN: Distinctly distended. Few bowel sounds are noted. Organomegaly is not detected. EXTREMITIES: +1 bilateral pedal edema. No calf tenderness. ORLIN hose in place. NEUROLOGICAL: Sedated - Labs CBC & Chem 7: 10/08/16 04:20 10/08/16 04:20 Labs: Abnormal Lab Results - Last 24 Hours (Table) 10/08/16 10/08/16 10/08/16 Range/Units 01:08 04:20 04:20 WBC 18.8 H (3.8-10.6) k/uL RBC 3.15 L (4.30-5.90) m/uL Hgb 9.3 L (13.0-17.5) gm/dL Hct 30.1 L (39.0-53.0) % MCHC 30.9 L (31.0-37.0) g/dL RDW 17.8 H (11.5-15.5) % Neutrophils # (Manual) 16.2 H (1.3-7.7) k/uL PT 31.3 H (9.0-12.0) sec ABG pO2 (83-108) mmHg ABG Total CO2 (19-24) mmol/L BUN (9-20) mg/dL Creatinine (0.66-1.25) mg/dL Glucose (74-99) mg/dL POC Glucose (mg/dL) 157 H (75-99) mg/dL Calcium (8.4-10.2) mg/dL Ionized Calcium Guille (4.5-5.3) mg/dL Phosphorus (2.5-4.5) mg/dL Magnesium (1.6-2.3) mg/dL Total Bilirubin (0.2-1.3) mg/dL AST (17-59) U/L Total Protein (6.3-8.2) g/dL Albumin (3.5-5.0) g/dL 10/08/16 10/08/16 10/08/16 Range/Units 04:20 06:49 07:20 WBC (3.8-10.6) k/uL RBC (4.30-5.90) m/uL Hgb (13.0-17.5) gm/dL Hct (39.0-53.0) % MCHC (31.0-37.0) g/dL RDW (11.5-15.5) % Neutrophils # (Manual) (1.3-7.7) k/uL PT (9.0-12.0) sec ABG pO2 (83-108) mmHg ABG Total CO2 (19-24) mmol/L BUN 60 H (9-20) mg/dL Creatinine 2.01 H (0.66-1.25) mg/dL Glucose 140 H (74-99) mg/dL POC Glucose (mg/dL) 162 H (75-99) mg/dL Calcium 6.9 L (8.4-10.2) mg/dL Ionized Calcium Guille 3.7 L (4.5-5.3) mg/dL Phosphorus 5.1 H (2.5-4.5) mg/dL Magnesium 2.5 H (1.6-2.3) mg/dL Total Bilirubin 1.5 H (0.2-1.3) mg/dL AST 60 H (17-59) U/L Total Protein 5.9 L (6.3-8.2) g/dL Albumin 2.9 L (3.5-5.0) g/dL 10/08/16 10/08/16 Range/Units 08:42 11:30 WBC (3.8-10.6) k/uL RBC (4.30-5.90) m/uL Hgb (13.0-17.5) gm/dL Hct (39.0-53.0) % MCHC (31.0-37.0) g/dL RDW (11.5-15.5) % Neutrophils # (Manual) (1.3-7.7) k/uL PT (9.0-12.0) sec ABG pO2 80 L (83-108) mmHg ABG Total CO2 25 H (19-24) mmol/L BUN (9-20) mg/dL Creatinine (0.66-1.25) mg/dL Glucose (74-99) mg/dL POC Glucose (mg/dL) 146 H (75-99) mg/dL Calcium (8.4-10.2) mg/dL Ionized Calcium Guille (4.5-5.3) mg/dL Phosphorus (2.5-4.5) mg/dL Magnesium (1.6-2.3) mg/dL Total Bilirubin (0.2-1.3) mg/dL AST (17-59) U/L Total Protein (6.3-8.2) g/dL Albumin (3.5-5.0) g/dL Microbiology - Last 24 Hours (Table) 10/06/16 21:00 Gram Stain - Preliminary Sputum Sputum Culture - Preliminary Laboratory Results WBC 18.8 k/uL (3.8-10.6) H 10/08/16 04:20 RBC 3.15 m/uL (4.30-5.90) L 10/08/16 04:20 Hgb 9.3 gm/dL (13.0-17.5) L 10/08/16 04:20 Hct 30.1 % (39.0-53.0) L 10/08/16 04:20 MCV 95.4 fL (80.0-100.0) 10/08/16 04:20 MCH 29.5 pg (25.0-35.0) 10/08/16 04:20 MCHC 30.9 g/dL (31.0-37.0) L 10/08/16 04:20 RDW 17.8 % (11.5-15.5) H 10/08/16 04:20 Plt Count 419 k/uL (150-450) 10/08/16 04:20 Neutrophils % 90 % 10/07/16 05:18 Neutrophils % (Manual) 85.5 % 10/08/16 04:20 Band Neutrophils % 0.5 % 10/08/16 04:20 Lymphocytes % 4 % 10/07/16 05:18 Lymphocytes % (Manual) 5.5 % 10/08/16 04:20 Monocytes % 3 % 10/07/16 05:18 Monocytes % (Manual) 4.0 % 10/08/16 04:20 Eosinophils % 1 % 10/07/16 05:18 Eosinophils % (Manual) 3.0 % 10/08/16 04:20 Basophils % 0 % 10/07/16 05:18 Metamyelocytes % 1.0 % 10/08/16 04:20 Myelocytes % 0.5 % 10/08/16 04:20 Neutrophils # 21.4 k/uL (1.3-7.7) H 10/07/16 05:18 Neutrophils # (Manual) 16.2 k/uL (1.3-7.7) H 10/08/16 04:20 Lymphocytes # 0.9 k/uL (1.0-4.8) L 10/07/16 05:18 Lymphocytes # (Manual) 1.0 k/uL (1.0-4.8) 10/08/16 04:20 Monocytes # 0.8 k/uL (0-1.0) 10/07/16 05:18 Monocytes # (Manual) 0.8 k/uL (0-1.0) 10/08/16 04:20 Eosinophils # 0.2 k/uL (0-0.7) 10/07/16 05:18 Eosinophils # (Manual) 0.6 k/uL (0-0.7) 10/08/16 04:20 Basophils # 0.1 k/uL (0-0.2) 10/07/16 05:18 Nucleated RBCs 0 /100 WBC (0-0) 10/08/16 04:20 Manual Slide Review Performed 10/08/16 04:20 Large Platelets Present 10/06/16 21:00 Polychromasia Present 10/08/16 04:20 Hypochromasia Moderate 10/08/16 04:20 Poikilocytosis (manual Present 10/08/16 04:20 Anisocytosis Slight 10/08/16 04:20 Macrocytosis Slight 10/08/16 04:20 Ovalocytes Present 10/06/16 21:00 PT 31.3 sec (9.0-12.0) H 10/08/16 04:20 INR 3.2 (<1.1) 10/08/16 04:20 APTT 32.8 sec (22.0-30.0) H 10/06/16 09:50 D-Dimer 6.31 mg/L FEU (<0.60) H 10/06/16 21:00 Sample Site A-LINE 10/08/16 08:42 ABG pH 7.44 (7.35-7.45) 10/08/16 08:42 ABG pCO2 36 mmHg (35-45) 10/08/16 08:42 ABG pO2 80 mmHg (83-108) L 10/08/16 08:42 ABG HCO3 24 mmol/L (21-25) 10/08/16 08:42 ABG Total CO2 25 mmol/L (19-24) H 10/08/16 08:42 ABG O2 Saturation 96.3 % (94-97) 10/08/16 08:42 ABG Base Excess 0.5 mmol/L 10/08/16 08:42 FiO2 60 % 10/08/16 08:42 Sodium 139 mmol/L (137-145) 10/08/16 04:20 Potassium 4.5 mmol/L (3.5-5.1) 10/08/16 04:20 Chloride 100 mmol/L (98-107) 10/08/16 04:20 Carbon Dioxide 27 mmol/L (22-30) 10/08/16 04:20 Anion Gap 12 mmol/L 10/08/16 04:20 BUN 60 mg/dL (9-20) H 10/08/16 04:20 Creatinine 2.01 mg/dL (0.66-1.25) H 10/08/16 04:20 Est GFR (MDRD) Af Amer 40 (>60 ml/min/1.73 sqM) 10/08/16 04:20 Est GFR (MDRD) Non-Af 33 (>60 ml/min/1.73 sqM) 10/08/16 04:20 Glucose 140 mg/dL (74-99) H 10/08/16 04:20 POC Glucose (mg/dL) 146 mg/dL (75-99) H 10/08/16 11:30 POC Glu Brake Repair Mechanic ID Lorraine Song 10/08/16 11:[address] Glu mg/dL 120 mg/dL 10/07/16 05:18 Hemoglobin A1c 5.8 % (4.2-6.1) 10/07/16 05:18 Plasma Lactic Acid Samir 1.0 mmol/L (0.7-2.0) 10/07/16 05:18 Calcium 6.9 mg/dL (8.4-10.2) L 10/08/16 04:20 Ionized Calcium Guille 3.7 mg/dL (4.5-5.3) L 10/08/16 07:20 Phosphorus 5.1 mg/dL (2.5-4.5) H 10/08/16 04:20 Magnesium 2.5 mg/dL (1.6-2.3) H 10/08/16 04:20 Total Bilirubin 1.5 mg/dL (0.2-1.3) H 10/08/16 04:20 AST 60 U/L (17-59) H 10/08/16 04:20 ALT 59 U/L (21-72) 10/08/16 04:20 Alkaline Phosphatase 84 U/L (38-126) 10/08/16 04:20 Total Creatine Kinase 736 U/L (55-170) H 10/06/16 09:50 CK-MB (CK-2) 7.2 ng/mL (0.0-2.4) H* 10/06/16 09:50 CK-MB (CK-2) Rel Index 1.0 10/06/16 09:50 Troponin I 1.510 ng/mL (0.000-0.034) H* 10/06/16 09:50 NT-Pro-B Natriuret Pep 6520 pg/mL 10/06/16 09:50 Total Protein 5.9 g/dL (6.3-8.2) L 10/08/16 04:20 Albumin 2.9 g/dL (3.5-5.0) L 10/08/16 04:20 TSH 32.400 mIU/L (0.465-4.680) H 10/06/16 09:50 Free T4 0.88 ng/dL (0.78-2.19) 10/06/16 09:50 Urine Color Dark Yellow 10/06/16 18:30 Urine Appearance Cloudy (Clear) 10/06/16 18:30 Urine pH 5.0 (5.0-8.0) 10/06/16 18:30 Ur Specific Mcbain 1.018 (1.001-1.035) 10/06/16 18:30 Urine Protein Trace (Negative) H 10/06/16 18:30 Urine Glucose (UA) Negative (Negative) 10/06/16 18:30 Urine Ketones Negative (Negative) 10/06/16 18:30 Urine Blood Negative (Negative) 10/06/16 18:30 Urine Nitrite Negative (Negative) 10/06/16 18:30 Urine Bilirubin 1+ (Negative) H 10/06/16 18:30 Urine Urobilinogen 4.0 mg/dL (<2.0) 10/06/16 18:30 Ur Leukocyte Esterase Negative (Negative) 10/06/16 18:30 Urine WBC 10 /hpf (0-5) H 10/06/16 18:30 Ur Squamous Epith Cells 2 /hpf (0-4) 10/06/16 18:30 Calcium Oxalate Crystal Occasional /hpf (None) H 10/06/16 18:30 Amorphous Sediment Occasional /hpf (None) H 10/06/16 18:30 Hyaline Casts 79 /lpf (0-2) H 10/06/16 18:30 Urine Mucus Rare /hpf (None) H 10/06/16 18:30 Microbiology 10/06/16 10:00 Blood Blood Culture - Preliminary No Growth after 48 hours 10/06/16 21:00 Sputum Gram Stain - Preliminary 10/06/16 21:00 Sputum Sputum Culture - Preliminary Assessment and Plan (1) Acute respiratory failure Narrative/Plan: 71-year-old male with history of thyroid cancer recently was hospitalized at which point in time was having difficulties with congestive heart failure. He was noted evidence of aortic valve insufficiency and mitral valve regurgitation. There is also some lymphadenopathy noted within the chest. As he was taken to the operating room and aortic valve replacement occurred as well as mitral valve repair. Biopsy of mediastinal lymph nodes also occurred. 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 Patient was initiated to itraconazole. He however developed atrial fibrillation and was placed on amiodarone and the itraconazole dose was reduced. Upon discharge he has not been able to continue the itraconazole. However is only been home for a very short period of time we developed the progressive shortness of breath. This time it appears he has extensive edema in his abdominal cavity as well as evidence of congestive heart failure. Concerns to pneumonia given his significant leukocytosis and antibiotic therapy was begun with piperacillin tazobactam and vancomycin while cultures are in process. Ongoing aggressive supportive care is continuing Cardiothoracic surgery will be in to see him Case has been discussed with pulmonary critical care. He has acute renal failure The acidosis is improved. The severe leukocytosis is improving. Continue current antibiotic therapy while he is being resuscitated and while cultures are in process. Status: Acute (2) Status post aortic valve replacement Status: Acute (3) Status post mitral valve repair Status: Acute (4) Histoplasmosis Status: Acute
[2016-10-08] MEDS: FUROSEMIDE 250 MG in SODIUM CHLORIDE 0.9% 225 ML IVPB SCH (22:00)
[2016-10-08] MEDS: SENNOSIDES 8.6 MG TAB PO SCH (22:01)
[2016-10-08] MEDS: HYDROcodone/APAP 5-325MG 1 EACH TAB PO PRN (23:39)
[2016-10-08 23:49] LABS: Glucose,Whole Blood 149 mg/dL (75-99)
[2016-10-09 00:13] LABS: Magnesium 2.4 mg/dL (1.6-2.3)
[2016-10-09] MEDS: INSULIN LISPRO (humaLOG) 300 UNIT/3 ML VIAL SQ SCH ×4 (00:36→18:57)
[2016-10-09] MEDS: PROPOFOL 500 MG in EMPTY BAG 1 BAG IV SCH ×7 (01:10→21:52)
[2016-10-09] MEDS: LEVALBUTEROL NEB (CONC) 1.25 MG/0.5 ML AMP INHALATION SCH ×6 (03:24→23:41)
[2016-10-09] MEDS: IPRATROPIUM 0.5 MG/2.5 ML NEBU INHALATION SCH ×6 (03:24→23:41)
[2016-10-09] MEDS: HYDROcodone/APAP 5-325MG 1 EACH TAB PO PRN ×2 (04:24→20:59)
[2016-10-09] MEDS: PIPERACILLIN-TAZOBACTAM 3.375 GM in DEXTROSE/WATER 1 50ML.BAG IVPB SCH ×3 (04:24→20:47)
[2016-10-09] MEDS: FUROSEMIDE 250 MG in SODIUM CHLORIDE 0.9% 225 ML IVPB SCH (04:32)
[2016-10-09 05:14] LABS: Glucose,Whole Blood 160 mg/dL (75-99)
[2016-10-09 05:26] LABS: Anisocytosis Slight; Basophils # (A) 0.1 k/uL (0-0.2); Basophils % (A) 1 %; CH 30.4; CHCM 31.7; Eosinophils # (A) 0.4 k/uL (0-0.7); Eosinophils % (A) 3 %; HCT 31.8 % (39.0-53.0); HDW 3.58; HGB 9.7 gm/dL (13.0-17.5); Hypochromasia Moderate; Luc # (Auto) 0.24; Luc % (Auto) 2; Lymphocytes # (A) 1.3 k/uL (1.0-4.8); Lymphocytes % (A) 8 %; MCH 29.5 pg (25.0-35.0); MCHC 30.5 g/dL (31.0-37.0); MCV 96.7 fL (80.0-100.0); Macrocytosis Slight; Mean Platelet Volume 7.3; Monocytes % (A) 6 %; Neutrophils # (A) 13.2 k/uL (1.3-7.7); Neutrophils % (A) 81 %; Poikilocytosis Slight; RBC 3.29 m/uL (4.30-5.90); RDW 18.2 % (11.5-15.5); WBC 16.3 k/uL (3.8-10.6); WBC (Perox) 16.34
[2016-10-09 05:30] LABS: Ionized Calcium 3.7 mg/dL (4.5-5.3)
[2016-10-09 05:37] LABS: INR 2.6 (<1.1); Prothrombin Time 25.2 sec (9.0-12.0)
[2016-10-09 05:38] LABS: Anion Gap 13 mmol/L; Calcium 6.8 mg/dL (8.4-10.2); Carbon Dioxide 27 mmol/L (22-30); Chloride 101 mmol/L (98-107); Glucose 145 mg/dL (74-99); Non-African American GFR(MDRD) 50 (>60 ml/min/1.73 sqM); Sodium 141 mmol/L (137-145); Total Bilirubin 1.5 mg/dL (0.2-1.3); Total Protein 5.9 g/dL (6.3-8.2)
[2016-10-09 05:44] LABS: AST 56 U/L (17-59); Blood Urea Nitrogen 50 mg/dL (9-20); Magnesium 2.3 mg/dL (1.6-2.3)
[2016-10-09 05:45] LABS: ALT 55 U/L (21-72); Alkaline Phosphatase 73 U/L (38-126)
[2016-10-09] MEDS: NOREPINEPHRIN 16 MG-0.9%NS PMX 16 MG/250 ML ML IV SCH ×2 (06:08→14:26)
[2016-10-09] MEDS: LEVOTHYROXINE 75 MCG TAB PO SCH (06:11)
[2016-10-09] MEDS ORDERED: CALCIUM GLUCONATE 2,000 MG in SODIUM CHLORIDE 0.9% 100 ML IVPB ONE (07:18)
--- NOTE | 2016-10-09 07:47 | XR ---
EXAMINATION TYPE: XR chest 1V portable DATE OF EXAM: 10/09/2016 6:55 AM COMPARISON: Prior chest x-ray 08 October 2016 HISTORY: Intubated TECHNIQUE: Single frontal view of the chest is obtained. FINDINGS: Endotracheal tube, NG tube are again noted and are overlying stable positions. Heart remai ns enlarged. Prominence in the interstitium is suspected, pulmonary artery enlargement suspected and could be due to pulmonary artery hypertension. Bilateral pleural effusions persist. No evident pneumo thorax. There are overlying cardiac leads. IMPRESSION: Essentially stable exam. Correlate for congestive heart failure with pleural effusions.
[2016-10-09] MEDS ORDERED: VANCOMYCIN TROUGH DUE 1 EACH MISC MISCELLANE ONE (08:30)
[2016-10-09] MEDS ORDERED: VANCOMYCIN 1,750 MG in SODIUM CHLORIDE 0.9% 250 ML IVPB SCH (09:00)
[2016-10-09] MEDS: AMIODARONE 200 MG TAB PO SCH ×2 (09:48→20:42)
[2016-10-09] MEDS: ASPIRIN 81 MG CHEW PO SCH (09:48)
[2016-10-09] MEDS: CHLORHEXIDINE GLUCONATE 15 ML CUP MUCOUS MEM SCH ×2 (09:49→20:42)
[2016-10-09] MEDS: DOCUSATE ORAL SOLN 100 MG/10 ML CUP PO SCH ×2 (09:50→20:42)
[2016-10-09] MEDS: METOPROLOL TARTRATE 25 MG TAB PO SCH ×2 (09:50→20:43)
[2016-10-09] MEDS: PANTOPRAZOLE 40 MG/10 ML VIAL IVP SCH (10:07)
[2016-10-09 10:33] LABS: ABG HCO3 26 mmol/L (21-25); ABG PCO2 37 mmHg (35-45); ABG PH 7.46 (7.35-7.45); ABG PO2 100 mmHg (83-108); ABG TCO2 27 mmol/L (19-24)
--- NOTE | 2016-10-09 11:51 | P.PN ---
Subjective Principal diagnosis: Acute hypoxic respiratory failure requiring mechanical ventilation POD #12 aortic valve replacement, mitral valve repair, modified Frederick maze, mediastinal lymph node biopsy. Remains sedated on mechanical ventilation. Objective - Vital Signs Vital signs: Vital Signs Temp 99.2 F 10/09/16 08:00 Pulse 116 H 10/09/16 10:00 Resp 19 10/09/16 10:00 BP 119/88 10/08/16 05:00 Pulse Ox 98 10/09/16 10:00 Intake & Output 10/08/16 10/09/16 10/09/16 18:59 06:59 18:59 Intake Total 3676.587 9745.090 152 Output Total 2275 2150 605 Balance -940.483 -844.910 -453 Weight 116.8 kg 112.8 kg 112.8 kg Intake: IV 240 261 92 Pressure Bag 21 12 Sodium Chloride 0.9% 1, 240 240 80 000 ml @ 20 mls/hr IV . Q24H [facility] Rx#:[id number] Intake, IV Titration 2153.765 6149.090 50 Amount Calcium Gluconate 2,000 100 mg In Sodium Chloride 0.9 % 100 ml @ 100 mls/hr IVPB ONCE ONE Rx#: [id number] Furosemide 250 mg In 179.334 Sodium Chloride 0.9% 225 ml @ 5 MG/HR 5 mls/hr IVPB .Q24H [facility] Rx#: [id number] Norepinephrin 16 mg-0.9% 236.5 500 Ns Pmx 16 mg In 250 ml @ Titrate IV .Q0M [facility] Rx#: [id number] Piperacillin-Tazobactam 3 87.5 .375 gm In Dextrose/Water 1 50ml.bag @ 12.5 mls/hr IVPB Q8H [facility] Rx#: [id number] Propofol 500 mg In Empty 238.017 262.256 50 Bag 1 bag @ Titrate IV . Q0M [facility] Rx#:[id number] Vancomycin 1,750 mg In 250 Sodium Chloride 0.9% 250 ml @ 125 mls/hr IVPB Q48H [facility] Rx#:[id number] Tube Feeding 20 15 10 Output: Urine 2275 2150 605 Other: Voiding Method Indwelling Catheter Indwelling Catheter Indwelling Catheter # Bowel Movements 0 ABP, PAP, CO, CI - Last Documented Arterial Blood Pressure 127/65 - Constitutional General appearance: Present: no acute distress - Respiratory Details: Lung sounds diminished bilaterally. Resp even/non-labored currently but labored at times on mechanical ventilation. Current settings: AC TV 500, FiO2 50%, RR 20 , PEEP 8. Occasional harsh cough which decreases blood pressure. - Cardiovascular Details: S1/S2 present. Irregular/tachy rate/rhythm. Afib RVR on telemetry. Sternum movable proximally. Heart hugger in place. Teds/SCDs present. Trace summer lower extremity edema present - Gastrointestinal Gastrointestinal Comment(s): Abd soft/NT/ND/round. Hypoactive BS. OGT present. Tube feeding Vital @20 cc/hr. - Genitourinary Genitourinary Comment(s): Duong present draining clear, yellow urine. Output 75-150 ml/hr. - Integumentary Integumentary Comment(s): Ant chest incision well approximated. - Psychiatric Psychiatric Comment(s): Sedated on mechanical ventilation. - Allied health notes Allied health notes reviewed: nursing - Labs CBC & Chem 7: 10/09/16 05:00 10/09/16 05:00 Labs: Abnormal Lab Results - Last 24 Hours (Table) 10/08/16 10/08/16 10/08/16 Range/Units 18:05 23:45 23:45 WBC (3.8-10.6) k/uL RBC (4.30-5.90) m/uL Hgb (13.0-17.5) gm/dL Hct (39.0-53.0) % MCHC (31.0-37.0) g/dL RDW (11.5-15.5) % Neutrophils # (1.3-7.7) k/uL PT (9.0-12.0) sec ABG pH (7.35-7.45) ABG HCO3 (21-25) mmol/L ABG Total CO2 (19-24) mmol/L ABG O2 Saturation (94-97) % BUN (9-20) mg/dL Creatinine (0.66-1.25) mg/dL Glucose (74-99) mg/dL POC Glucose (mg/dL) 145 H 149 H (75-99) mg/dL Calcium (8.4-10.2) mg/dL Ionized Calcium Guille (4.5-5.3) mg/dL Phosphorus (2.5-4.5) mg/dL Magnesium 2.4 H (1.6-2.3) mg/dL Total Bilirubin (0.2-1.3) mg/dL Total Protein (6.3-8.2) g/dL Albumin (3.5-5.0) g/dL 10/09/16 10/09/16 10/09/16 Range/Units 05:00 05:00 05:00 WBC 16.3 H (3.8-10.6) k/uL RBC 3.29 L (4.30-5.90) m/uL Hgb 9.7 L (13.0-17.5) gm/dL Hct 31.8 L (39.0-53.0) % MCHC 30.5 L (31.0-37.0) g/dL RDW 18.2 H (11.5-15.5) % Neutrophils # 13.2 H (1.3-7.7) k/uL PT 25.2 H (9.0-12.0) sec ABG pH (7.35-7.45) ABG HCO3 (21-25) mmol/L ABG Total CO2 (19-24) mmol/L ABG O2 Saturation (94-97) % BUN 50 H (9-20) mg/dL Creatinine 1.40 H (0.66-1.25) mg/dL Glucose 145 H (74-99) mg/dL POC Glucose (mg/dL) (75-99) mg/dL Calcium 6.8 L (8.4-10.2) mg/dL Ionized Calcium Guille 3.7 L (4.5-5.3) mg/dL Phosphorus 5.0 H (2.5-4.5) mg/dL Magnesium (1.6-2.3) mg/dL Total Bilirubin 1.5 H (0.2-1.3) mg/dL Total Protein 5.9 L (6.3-8.2) g/dL Albumin 2.8 L (3.5-5.0) g/dL 10/09/16 10/09/16 Range/Units 05:11 09:42 WBC (3.8-10.6) k/uL RBC (4.30-5.90) m/uL Hgb (13.0-17.5) gm/dL Hct (39.0-53.0) % MCHC (31.0-37.0) g/dL RDW (11.5-15.5) % Neutrophils # (1.3-7.7) k/uL PT (9.0-12.0) sec ABG pH 7.46 H (7.35-7.45) ABG HCO3 26 H (21-25) mmol/L ABG Total CO2 27 H (19-24) mmol/L ABG O2 Saturation 98.0 H (94-97) % BUN (9-20) mg/dL Creatinine (0.66-1.25) mg/dL Glucose (74-99) mg/dL POC Glucose (mg/dL) 160 H (75-99) mg/dL Calcium (8.4-10.2) mg/dL Ionized Calcium Guille (4.5-5.3) mg/dL Phosphorus (2.5-4.5) mg/dL Magnesium (1.6-2.3) mg/dL Total Bilirubin (0.2-1.3) mg/dL Total Protein (6.3-8.2) g/dL Albumin (3.5-5.0) g/dL Microbiology - Last 24 Hours (Table) 10/06/16 21:00 Gram Stain - Preliminary Sputum Sputum Culture - Preliminary Gram Neg Bacilli - Imaging and Cardiology Chest x-ray: report reviewed, image reviewed Assessment and Plan (1) Status post aortic valve replacement Status: Acute (2) Status post mitral valve repair Status: Acute (3) Acute renal failure Status: Acute (4) Neutrophilic leukocytosis Status: Acute (5) Atrial fibrillation with RVR Status: Acute (6) Histoplasmosis Status: Acute (7) Hypercholesterolemia Status: Acute (8) Hypertension Status: Acute (9) Hypothyroidism (acquired) Status: Acute (10) Obesity Status: Acute (11) Paroxysmal atrial fibrillation Status: Acute Plan: 1. Continue aspirin, Lopressor. 2. Continue amiodarone for A. fib prophylaxis. 3. Pt to have CT chest now. 4. Lasix drip per pulmonology, monitor urine output, labs. 5. Will hold Coumadin for today as INR is 2.6. We will readdress daily. 6. Wean levo as tolerated 7. Ventilator management per pulmonology, wean O2 as tolerated. 8. Replace calcium. 9. Daily labs, x-rays 10. Strict I/O, daily weights. 11. More recommendations as patient progresses. Time with Patient: Greater than 30
--- NOTE | 2016-10-09 12:10 | P.PN ---
Subjective Principal diagnosis: Acute hypoxic respiratory failure requiring intubation and mechanical ventilation This is a 71-year-old white male who was recently discharged from [facility] following aortic valve replacement and mitral valve repair he also had a mediastinal lymph node positive for histoplasmosis. His postoperative course was relatively uneventful, patient was actually discharged home last Tuesday. Yesterday morning, the called and she was concerned that her may be having seizure-like activity were and the patient went completely stiff, shaking all over, and he was staring blankly. He appeared at the time to be confused, and the 2 days. EMS was called, and the patient was brought into the ER. Upon arrival the patient was noted to be extremely short of breath, relatively hypoxic, and he was requiring at least 6 L of oxygen by nasal cannula. Chest x-ray was suggestive of congestive heart failure, patient was in atrial fibrillation and RVR with heart rate in the 120 range. Patient was already anticoagulated, and his INR was therapeutic upon presentation. At any rate patient was transferred to the ICU, and shortly after he arrived to the ICU, I was notified by the nurse taking care of the patient that he was not doing too well. Patient was struggling to breathe, hence I recommended immediate intubation and placement on mechanical ventilation. I reviewed the chest x-ray, and I felt that the chest x-ray clearly shows pulmonary edema, whether this is cardiogenic or noncardiogenic pulmonary edema it is difficult to tell, however at this point and considering the patient's cardiac history and considering the presentation of atrial fibrillation and RVR, I believe this is cardiogenic unless proven otherwise. Patient was given Lasix yesterday, and he was placed on Lasix drip today. His INR was noted to be elevated, however I was able to place a right triple-lumen catheter in the right groin to avoid the bleeding and if bleeding is noted that could be easily tampo naded. Echocardiogram showed good LV function and according to the hand woodworking sander his valves were noted to be unremarkable, patient was placed empirically on antibiotics just in case if we are dealing with underlying pneumonia which is again felt to be less likely considering the acute presentation. Even the issue of histoplasmosis is most likely chronic, and I strongly doubt chronic active histoplasmosis. But the patient was already on itraconazole on outpatient basis. The patient himself is now on mechanical ventilation, intubated, and on propofol drip. Patient was noted to have intermittent episodes of profound hypertension when suctioned. This is noted to be without bradycardia, but the blood pressure completely goes down to the 60s and 70s systolic with minimal suctioning of the endotracheal tube. Reevaluated today on 10/08/2016, patient remains on mechanical ventilation, however he is down to 50% and PEEP of 5. His gases are definitely improved, chest x-ray is showing definite improvement but the pleural effusions bilaterally seem to be a bit larger. This tissue edema seems to be a bit better. Ultrasound of the chest today showed a 5.6 cm pocket on the right side , and a left is pocket of 6.1 cm. INR on this patient remains elevated, and I believe at this point we will continue diuresing the patient rather than going for thoracentesis. ABG this morning showed a pO2 of a 0 pCO2 of 36 pH of 7.44. Leukocytosis seems to be significantly better, the limbs count is 18.8 and it was 31.9 on admission. Electrolytes are normal BUN is down to 60 creatinine is down to 2.01 patient renal profile is improving in spite of the fact that the patient diuresed about 5 L so far on Lasix drip. Patient remains intubated, on propofol drip, and he is requiring norepinephrine for low blood pressure. Heart rate seems to be better controlled, but the patient remains in A. fib with RVR intermittently. Reevaluated today on 10/09/2016, remains on mechanical ventilation, FiO2 is 50% PEEP is 5. Chest x-ray continues to show some improvement but continues to have bilateral pleural effusions left more so than right. ABG today is significantly improved pO2 is 100 pCO2 is 37 pH of 7.46. Renal profile is also improving, BUN is down to 50 creatinine is down to 1.40, and initially his creatinine was 2.86 upon presentation and his BUN was 67. Clearly the patient seems to be having better renal perfusion to see such an improvement in his overall renal status. And I am more convinced now that the presentation is a presentation of congestive heart failure and the patient will remain on Lasix drip at 5 mg per hour. Patient remains sedated, on propofol drip, we will plan to wake him up, and assess mental status, but I do not plan to wean and extubate at this point. Patient is not quite ready at this point. Continues to be in A. fib with RVR, and that is being addressed by cardiology on the case. Patient is nutritionally supported, he is on tube feeding. Objective - Vital Signs Vital signs: Vital Signs Temp 99.2 F 10/09/16 08:00 Pulse 114 H 10/09/16 11:35 Resp 19 10/09/16 10:00 BP 119/88 10/08/16 05:00 Pulse Ox 98 10/09/16 10:00 Intake & Output 10/08/16 10/09/16 10/09/16 18:59 06:59 18:59 Intake Total 9171.617 0638.090 152 Output Total 2275 2150 605 Balance -940.483 -844.910 -453 Weight 116.8 kg 112.8 kg 112.8 kg Intake: IV 240 261 92 Pressure Bag 21 12 Sodium Chloride 0.9% 1, 240 240 80 000 ml @ 20 mls/hr IV . Q24H [facility] Rx#:[id number] Intake, IV Titration 2147.800 9668.090 50 Amount Calcium Gluconate 2,000 100 mg In Sodium Chloride 0.9 % 100 ml @ 100 mls/hr IVPB ONCE ONE Rx#: [id number] Furosemide 250 mg In 179.334 Sodium Chloride 0.9% 225 ml @ 5 MG/HR 5 mls/hr IVPB .Q24H [facility] Rx#: [id number] Norepinephrin 16 mg-0.9% 236.5 500 Ns Pmx 16 mg In 250 ml @ Titrate IV .Q0M [facility] Rx#: [id number] Piperacillin-Tazobactam 3 87.5 .375 gm In Dextrose/Water 1 50ml.bag @ 12.5 mls/hr IVPB Q8H [facility] Rx#: [id number] Propofol 500 mg In Empty 238.017 262.256 50 Bag 1 bag @ Titrate IV . Q0M [facility] Rx#:[id number] Vancomycin 1,750 mg In 250 Sodium Chloride 0.9% 250 ml @ 125 mls/hr IVPB Q48H [facility] Rx#:[id number] Tube Feeding 20 15 10 Output: Urine 2275 2150 605 Other: Voiding Method Indwelling Catheter Indwelling Catheter Indwelling Catheter # Bowel Movements 0 ABP, PAP, CO, CI - Last Documented Arterial Blood Pressure 127/65 - Exam Physical Exam: Revealed a 71-year-old obese, sedated, on mechanical ventilation , endotracheal tube is intact. HEENT:[Neck is supple.] [No neck masses.] [No thyromegaly.] [No JVD.] Chest: [Neck is in the rhonchi noted at the bases. With faint expiratory wheezes] proximal sternum seems to be not well approximated, sternal wires do not seem to be on the same line based on the chest x-ray. Cardiac Exam: [Irregular irregular rhythm Normal S1 and S2, no S3 gallop, no murmur.] Abdomen: [Soft, nontender, no megaly, no rebound, no guarding, normal bowel sounds.] Extremities: [No clubbing, 2+ bipedal edema, no cyanosis.] Neurological Exam: [Cannot be assessed, patient is on mechanical ventilation and propofol drip - Labs CBC & Chem 7: 10/09/16 05:00 10/09/16 05:00 Labs: Abnormal Lab Results - Last 24 Hours (Table) 10/08/16 10/08/16 10/08/16 Range/Units 18:05 23:45 23:45 WBC (3.8-10.6) k/uL RBC (4.30-5.90) m/uL Hgb (13.0-17.5) gm/dL Hct (39.0-53.0) % MCHC (31.0-37.0) g/dL RDW (11.5-15.5) % Neutrophils # (1.3-7.7) k/uL PT (9.0-12.0) sec ABG pH (7.35-7.45) ABG HCO3 (21-25) mmol/L ABG Total CO2 (19-24) mmol/L ABG O2 Saturation (94-97) % BUN (9-20) mg/dL Creatinine (0.66-1.25) mg/dL Glucose (74-99) mg/dL POC Glucose (mg/dL) 145 H 149 H (75-99) mg/dL Calcium (8.4-10.2) mg/dL Ionized Calcium Guille (4.5-5.3) mg/dL Phosphorus (2.5-4.5) mg/dL Magnesium 2.4 H (1.6-2.3) mg/dL Total Bilirubin (0.2-1.3) mg/dL Total Protein (6.3-8.2) g/dL Albumin (3.5-5.0) g/dL 10/09/16 10/09/16 10/09/16 Range/Units 05:00 05:00 05:00 WBC 16.3 H (3.8-10.6) k/uL RBC 3.29 L (4.30-5.90) m/uL Hgb 9.7 L (13.0-17.5) gm/dL Hct 31.8 L (39.0-53.0) % MCHC 30.5 L (31.0-37.0) g/dL RDW 18.2 H (11.5-15.5) % Neutrophils # 13.2 H (1.3-7.7) k/uL PT 25.2 H (9.0-12.0) sec ABG pH (7.35-7.45) ABG HCO3 (21-25) mmol/L ABG Total CO2 (19-24) mmol/L ABG O2 Saturation (94-97) % BUN 50 H (9-20) mg/dL Creatinine 1.40 H (0.66-1.25) mg/dL Glucose 145 H (74-99) mg/dL POC Glucose (mg/dL) (75-99) mg/dL Calcium 6.8 L (8.4-10.2) mg/dL Ionized Calcium Guille 3.7 L (4.5-5.3) mg/dL Phosphorus 5.0 H (2.5-4.5) mg/dL Magnesium (1.6-2.3) mg/dL Total Bilirubin 1.5 H (0.2-1.3) mg/dL Total Protein 5.9 L (6.3-8.2) g/dL Albumin 2.8 L (3.5-5.0) g/dL 10/09/16 10/09/16 Range/Units 05:11 09:42 WBC (3.8-10.6) k/uL RBC (4.30-5.90) m/uL Hgb (13.0-17.5) gm/dL Hct (39.0-53.0) % MCHC (31.0-37.0) g/dL RDW (11.5-15.5) % Neutrophils # (1.3-7.7) k/uL PT (9.0-12.0) sec ABG pH 7.46 H (7.35-7.45) ABG HCO3 26 H (21-25) mmol/L ABG Total CO2 27 H (19-24) mmol/L ABG O2 Saturation 98.0 H (94-97) % BUN (9-20) mg/dL Creatinine (0.66-1.25) mg/dL Glucose (74-99) mg/dL POC Glucose (mg/dL) 160 H (75-99) mg/dL Calcium (8.4-10.2) mg/dL Ionized Calcium Guille (4.5-5.3) mg/dL Phosphorus (2.5-4.5) mg/dL Magnesium (1.6-2.3) mg/dL Total Bilirubin (0.2-1.3) mg/dL Total Protein (6.3-8.2) g/dL Albumin (3.5-5.0) g/dL Microbiology - Last 24 Hours (Table) 10/06/16 21:00 Gram Stain - Preliminary Sputum Sputum Culture - Preliminary Haemophilus influenzae Gram Neg Bacilli Assessment and Plan Plan: Impression: 1 acute hypoxic respiratory failure requiring intubation and mechanical ventilation secondary to cardiogenic pulmonary edema however Possibility of sepsis and noncardiogenic pulmonary edema is in the differential, but again felt to be less likely. However the patient will be empirically covered with antibiotics. Sputum cultures are positive for Haemophilus influenza, however the patient is on appropriate antibiotics coverage and will cover Haemophilus influenza. The leukocytosis upon presentation is a bit concerning., But that seems to be improving and his WBC count is much better today. And Dr. Ramos was consulted to address that issue specifically. 2 status post mitral valve repair and aortic valve replacement as well as mediastinal node biopsy in the last 10 days. 3 acute renal failure, most likely secondary to poor perfusion, especially with the fact that the patient is noted to drop his blood pressure significantly upon coughing and this was witnessed while in the ICU. I believe the patient must have developed acute kidney injury, acute tubular necrosis. This seems to be improving steadily since admission and obviously the patient seems to be perfusing his kidneys much better now that he was upon presentation. 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 5 bilateral pleural effusions, most likely effusions of congestive heart failure , I plan to treat with diuretics rather than thoracentesis at this point, especially with INR being elevated. If the effusion gets any larger, may have to drain with ultrasound guided thoracentesis. 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 7 multiple comorbidities including hypercholesterolemia, hypertension, hypothyroidism, obesity, osteoarthritis, thyroid cancer with previous surgery and radiation, history of rheumatic fever, and history of moderate pulmonary hypertension. Recommendation: Patient will remain on mechanical ventilation, diuretics, bronchodilators, antibiotics for Haemophilus influenza in the sputum as per infectious disease on the case, no plans to wean today, continue diuresis, continue antibiotics, monitor the pleural effusions bilaterally on a daily basis , and if they get any larger then I would consider thoracentesis after noticing that the INR is down to below 2. Continue nutritional support. Critical care time is 35 minutes. Time with Patient: Greater than 30
--- NOTE | 2016-10-09 12:33 | CT ---
EXAMINATION TYPE: CT chest wo con DATE OF EXAM: 10/09/2016 12:18 PM COMPARISON: Previous chest CT 24 September 2016 HISTORY: Post op complications postoperative aortic valve replacement with respiratory failure CT DLP: 555.6 mGycm Automated exposure control for dose reduction was used. FINDINGS: Bilateral pleural effusions are sizable, there is associated atelectasis. Heart is enlarged. Median s ternotomy change is dehiscent, separation is approximately 2.5 cm cephalad and approximately 3.5 cm m ore inferiorly. There is some pericardial fluid present as well as fluid along the wound dehiscence a t the level of the sternotomy and substernal region. Suspect coronary artery calcifications. Endotrac heal and NG tubes are present and NG tube is folded. Endotracheal tube within the trachea. Postop bebe nges noted at the aortic root. Buckle deformities present at multiple right-sided anterior ribs to in clude the fourth, fifth, sixth and seventh ribs compatible with nondisplaced fractures on the right Gallstones are present within the dependent portion of the gallbladder. IMPRESSION: STERNAL DEHISCENCE. THERE IS A PERICARDIAL FLUID. BILATERAL PLEURAL EFFUSIONS AND ASSOCIATED ATELECTA SIS. POSTOP CHANGES. SUBSTERNAL FLUID ALSO NOTED. RIGHT-SIDED RIB FRACTURES ANTERIORLY.
[2016-10-09 13:05] LABS: Glucose,Whole Blood 150 mg/dL (75-99)
--- NOTE | 2016-10-09 14:07 | P.PN ---
Subjective Patient admitted with acute respiratory distress Currently intubated Bilateral pleural effusions Lymph nodes showed histoplasmosis Creatinine 1.4 Cardiology consulted for A. fib with RVR He is also on pressors Temperature 99.2F, pulse rate of 114 beats a minute irregular blood pressure 119/88 Reduced breath sounds bilaterally Heart sounds are distant and irregular Obese Impression Acute hypoxic respiratory failure requiring intubation and mechanical ventilation Status post mitral valve repair and aortic valve replacement Acute renal failure Atrial fibrillation with RVR chronic histoplasmosis bilateral pleural effusion on diuretics Suggest Continue rate control medications and amiodarone for now without any changes since he is also on pressors. Once he comes off pressors his atrial fibrillation rate should improve Objective - Vital Signs Vital signs: Vital Signs Temp 99.2 F 10/09/16 08:00 Pulse 126 H 10/09/16 13:00 Resp 17 10/09/16 13:00 BP 119/88 10/08/16 05:00 Pulse Ox 96 10/09/16 13:00 Intake & Output 10/08/16 10/09/16 10/09/16 18:59 06:59 18:59 Intake Total 4374.581 3922.090 218 Output Total 2275 2150 855 Balance -940.483 -844.910 -637 Weight 116.8 kg 112.8 kg 112.8 kg Intake: IV 240 261 138 Pressure Bag 21 18 Sodium Chloride 0.9% 1, 240 240 120 000 ml @ 20 mls/hr IV . Q24H [facility] Rx#:[id number] Intake, IV Titration 7922.424 1392.090 50 Amount Calcium Gluconate 2,000 100 mg In Sodium Chloride 0.9 % 100 ml @ 100 mls/hr IVPB ONCE ONE Rx#: [id number] Furosemide 250 mg In 179.334 Sodium Chloride 0.9% 225 ml @ 5 MG/HR 5 mls/hr IVPB .Q24H [facility] Rx#: [id number] Norepinephrin 16 mg-0.9% 236.5 500 Ns Pmx 16 mg In 250 ml @ Titrate IV .Q0M [facility] Rx#: [id number] Piperacillin-Tazobactam 3 87.5 .375 gm In Dextrose/Water 1 50ml.bag @ 12.5 mls/hr IVPB Q8H [facility] Rx#: [id number] Propofol 500 mg In Empty 238.017 262.256 50 Bag 1 bag @ Titrate IV . Q0M [facility] Rx#:[id number] Vancomycin 1,750 mg In 250 Sodium Chloride 0.9% 250 ml @ 125 mls/hr IVPB Q48H [facility] Rx#:[id number] Tube Feeding 20 15 30 Output: Urine 2275 2150 855 Other: Voiding Method Indwelling Catheter Indwelling Catheter Indwelling Catheter # Bowel Movements 0 ABP, PAP, CO, CI - Last Documented Arterial Blood Pressure 127/66 - Labs CBC & Chem 7: 10/09/16 05:00 10/09/16 05:00 Labs: Abnormal Lab Results - Last 24 Hours (Table) 10/08/16 10/08/16 10/08/16 Range/Units 18:05 23:45 23:45 WBC (3.8-10.6) k/uL RBC (4.30-5.90) m/uL Hgb (13.0-17.5) gm/dL Hct (39.0-53.0) % MCHC (31.0-37.0) g/dL RDW (11.5-15.5) % Neutrophils # (1.3-7.7) k/uL PT (9.0-12.0) sec ABG pH (7.35-7.45) ABG HCO3 (21-25) mmol/L ABG Total CO2 (19-24) mmol/L ABG O2 Saturation (94-97) % BUN (9-20) mg/dL Creatinine (0.66-1.25) mg/dL Glucose (74-99) mg/dL POC Glucose (mg/dL) 145 H 149 H (75-99) mg/dL Calcium (8.4-10.2) mg/dL Ionized Calcium Guille (4.5-5.3) mg/dL Phosphorus (2.5-4.5) mg/dL Magnesium 2.4 H (1.6-2.3) mg/dL Total Bilirubin (0.2-1.3) mg/dL Total Protein (6.3-8.2) g/dL Albumin (3.5-5.0) g/dL 10/09/16 10/09/16 10/09/16 Range/Units 05:00 05:00 05:00 WBC 16.3 H (3.8-10.6) k/uL RBC 3.29 L (4.30-5.90) m/uL Hgb 9.7 L (13.0-17.5) gm/dL Hct 31.8 L (39.0-53.0) % MCHC 30.5 L (31.0-37.0) g/dL RDW 18.2 H (11.5-15.5) % Neutrophils # 13.2 H (1.3-7.7) k/uL PT 25.2 H (9.0-12.0) sec ABG pH (7.35-7.45) ABG HCO3 (21-25) mmol/L ABG Total CO2 (19-24) mmol/L ABG O2 Saturation (94-97) % BUN 50 H (9-20) mg/dL Creatinine 1.40 H (0.66-1.25) mg/dL Glucose 145 H (74-99) mg/dL POC Glucose (mg/dL) (75-99) mg/dL Calcium 6.8 L (8.4-10.2) mg/dL Ionized Calcium Guille 3.7 L (4.5-5.3) mg/dL Phosphorus 5.0 H (2.5-4.5) mg/dL Magnesium (1.6-2.3) mg/dL Total Bilirubin 1.5 H (0.2-1.3) mg/dL Total Protein 5.9 L (6.3-8.2) g/dL Albumin 2.8 L (3.5-5.0) g/dL 10/09/16 10/09/16 10/09/16 Range/Units 05:11 09:42 13:04 WBC (3.8-10.6) k/uL RBC (4.30-5.90) m/uL Hgb (13.0-17.5) gm/dL Hct (39.0-53.0) % MCHC (31.0-37.0) g/dL RDW (11.5-15.5) % Neutrophils # (1.3-7.7) k/uL PT (9.0-12.0) sec ABG pH 7.46 H (7.35-7.45) ABG HCO3 26 H (21-25) mmol/L ABG Total CO2 27 H (19-24) mmol/L ABG O2 Saturation 98.0 H (94-97) % BUN (9-20) mg/dL Creatinine (0.66-1.25) mg/dL Glucose (74-99) mg/dL POC Glucose (mg/dL) 160 H 150 H (75-99) mg/dL Calcium (8.4-10.2) mg/dL Ionized Calcium Guille (4.5-5.3) mg/dL Phosphorus (2.5-4.5) mg/dL Magnesium (1.6-2.3) mg/dL Total Bilirubin (0.2-1.3) mg/dL Total Protein (6.3-8.2) g/dL Albumin (3.5-5.0) g/dL Microbiology - Last 24 Hours (Table) 10/06/16 21:00 Gram Stain - Preliminary Sputum Sputum Culture - Preliminary Haemophilus influenzae Gram Neg Bacilli
[2016-10-09] MEDS ORDERED: DIGOXIN 250 MCG/ML 2 ML AMP IVP ONE (15:16)
[2016-10-09] MEDS: SODIUM CHLORIDE 0.9% 1,000 ML IV SCH (17:05)
[2016-10-09 17:59] LABS: Glucose,Whole Blood 162 mg/dL (75-99)
[2016-10-09] MEDS: SENNOSIDES 8.6 MG TAB PO SCH (20:43)
[2016-10-10 01:18] LABS: Glucose,Whole Blood 184 mg/dL (75-99)
[2016-10-10] MEDS: INSULIN LISPRO (humaLOG) 300 UNIT/3 ML VIAL SQ SCH ×4 (01:21→18:05)
[2016-10-10] MEDS: PROPOFOL 500 MG in EMPTY BAG 1 BAG IV SCH ×6 (01:26→22:30)
[2016-10-10] MEDS: PIPERACILLIN-TAZOBACTAM 3.375 GM in DEXTROSE/WATER 1 50ML.BAG IVPB SCH ×3 (03:04→21:15)
[2016-10-10] MEDS: VANCOMYCIN 1,750 MG in SODIUM CHLORIDE 0.9% 250 ML IVPB SCH (03:04)
[2016-10-10] MEDS: NOREPINEPHRIN 16 MG-0.9%NS PMX 16 MG/250 ML ML IV SCH (03:07)
[2016-10-10] MEDS: LEVALBUTEROL NEB (CONC) 1.25 MG/0.5 ML AMP INHALATION SCH ×6 (03:22→23:20)
[2016-10-10] MEDS: IPRATROPIUM 0.5 MG/2.5 ML NEBU INHALATION SCH ×6 (03:22→23:20)
[2016-10-10 04:02] LABS: Anisocytosis Slight; Basophils % (A) 0 %; CH 30.3; CHCM 32.5; Eosinophils % (A) 0 %; HCT 30.8 % (39.0-53.0); HGB 9.9 gm/dL (13.0-17.5); Hypochromasia Slight; Luc # (Auto) 0.16; Luc % (Auto) 1; Lymphocytes # (A) 0.6 k/uL (1.0-4.8); Lymphocytes % (A) 3 %; MCH 30.2 pg (25.0-35.0); MCHC 32.1 g/dL (31.0-37.0); Mean Platelet Volume 7.4; Monocytes # (A) 0.8 k/uL (0-1.0); Monocytes % (A) 4 %; Neutrophils % (A) 91 %; Poikilocytosis Slight; RBC 3.28 m/uL (4.30-5.90); RDW 17.8 % (11.5-15.5); WBC 18.6 k/uL (3.8-10.6); WBC (Perox) 19.09
[2016-10-10 04:11] LABS: INR 1.9 (<1.1); Partial Thromboplastin Time 27.1 sec (22.0-30.0); Prothrombin Time 18.4 sec (9.0-12.0)
[2016-10-10 04:16] LABS: ALT 52 U/L (21-72); AST 35 U/L (17-59); Alkaline Phosphatase 82 U/L (38-126); Anion Gap 12 mmol/L; Blood Urea Nitrogen 45 mg/dL (9-20); Carbon Dioxide 30 mmol/L (22-30); Chloride 104 mmol/L (98-107); Glucose 165 mg/dL (74-99); Magnesium 2.2 mg/dL (1.6-2.3); Non-African American GFR(MDRD) 50 (>60 ml/min/1.73 sqM); Phosphorous 3.8 mg/dL (2.5-4.5); Potassium 3.3 mmol/L (3.5-5.1); Sodium 146 mmol/L (137-145); Total Bilirubin 1.5 mg/dL (0.2-1.3); Total Protein 5.7 g/dL (6.3-8.2)
[2016-10-10] MEDS: LEVOTHYROXINE 75 MCG TAB PO SCH (06:23)
[2016-10-10 06:24] LABS: Glucose,Whole Blood 185 mg/dL (75-99)
[2016-10-10 07:10] LABS: Glucose,Whole Blood 173 mg/dL (75-99)
[2016-10-10] MEDS ORDERED: Magnesium Replacement Protocol 1 EACH MISC MISCELLANE PRN (07:24)
[2016-10-10] MEDS ORDERED: CALCIUM GLUCONATE 2,000 MG in SODIUM CHLORIDE 0.9% 100 ML IVPB ONE (07:24)
[2016-10-10] MEDS ORDERED: Phosphorus Replacement Protoco 1 EACH MISC MISCELLANE PRN (07:24)
[2016-10-10] MEDS: PANTOPRAZOLE 40 MG/10 ML VIAL IVP SCH (07:47)
[2016-10-10] MEDS: AMIODARONE 200 MG TAB PO SCH ×2 (07:48→17:20)
[2016-10-10] MEDS: CHLORHEXIDINE GLUCONATE 15 ML CUP MUCOUS MEM SCH ×2 (07:48→21:14)
[2016-10-10] MEDS: DOCUSATE ORAL SOLN 100 MG/10 ML CUP PO SCH (07:48)
[2016-10-10] MEDS: METOPROLOL TARTRATE 25 MG TAB PO SCH ×2 (07:49→21:14)
[2016-10-10] MEDS: ASPIRIN 81 MG CHEW PO SCH (07:49)
[2016-10-10] MEDS: POTASSIUM CHLORIDE ER 20 MEQ TAB.ER PO SCH ×3 (08:00→14:00)
[2016-10-10 08:47] LABS: ABG HCO3 28 mmol/L (21-25); ABG PCO2 30 mmHg (35-45); ABG PH 7.58 (7.35-7.45); ABG PO2 72 mmHg (83-108); ABG TCO2 29 mmol/L (19-24)
--- NOTE | 2016-10-10 09:00 | XR ---
EXAMINATION TYPE: XR chest 1V portable DATE OF EXAM: 10/10/2016 6:02 AM COMPARISON: Prior chest x-ray 09 October 2016 HISTORY: Intubated TECHNIQUE: Single frontal view of the chest is obtained. FINDINGS: Sternal dehiscence change is again noted, endotracheal tube, NG tube, overlying cardiac le ads are all again noted. Bibasilar density persists. The heart is enlarged. No evident pneumothorax. Interstitium and central vascularity again are prominent. IMPRESSION: Similar findings to prior exam. Sternal dehiscence. Correlate for congestive heart failu re with bilateral pleural effusions.
--- NOTE | 2016-10-10 11:43 | P.PN ---
Subjective Principal diagnosis: Acute hypoxic respiratory failure requiring mechanical ventilation. Sputum culture positive for Haemophilus influenza gram-negative bacilli. POD #13 aortic valve replacement, mitral valve repair, modified Frederick maze, mediastinal lymph node biopsy. Remains sedated on mechanical ventilation. Recent CAT scan of the chest shows dehiscence of sternal wires. Objective - Vital Signs Vital signs: Vital Signs Temp 99.7 F H 10/10/16 08:00 Pulse 128 H 10/10/16 11:33 Resp 23 10/10/16 09:00 BP 119/88 10/08/16 05:00 Pulse Ox 95 10/10/16 09:00 Intake & Output 10/09/16 10/10/16 10/10/16 18:59 06:59 18:59 Intake Total 666 1330.667 184.0 Output Total 1895 2550 575 Balance -1229 -1219.333 -391.0 Weight 112.8 kg 117.2 kg Intake: IV 276 276 69 Pressure Bag 36 36 9 Sodium Chloride 0.9% 1, 240 240 60 000 ml @ 20 mls/hr IV . Q24H [facility] Rx#:[id number] Intake, IV Titration 350 684.667 25.0 Amount Norepinephrin 16 mg-0.9% 250 250.000 Ns Pmx 16 mg In 250 ml @ Titrate IV .Q0M [facility] Rx#: [id number] Piperacillin-Tazobactam 3 37.5 25.0 .375 gm In Dextrose/Water 1 50ml.bag @ 12.5 mls/hr IVPB Q8H [facility] Rx#: [id number] Propofol 500 mg In Empty 100 147.167 Bag 1 bag @ Titrate IV . Q0M [facility] Rx#:[id number] Vancomycin 1,750 mg In 250 Sodium Chloride 0.9% 250 ml @ 125 mls/hr IVPB Q24H [facility] Rx#:[id number] Tube Feeding 40 280 90 Other 90 Output: Urine 1895 2550 575 Other: Voiding Method Indwelling Catheter Indwelling Catheter Indwelling Catheter ABP, PAP, CO, CI - Last Documented Arterial Blood Pressure 113/59 - Constitutional General appearance: Present: no acute distress, obese - Respiratory Details: Lungs sounds diminished bilaterally. Respirations even, nonlabored on mechanical ventilation. Current settings tidal volume 500, FiO2 50%, respiratory rate 14, PEEP 5. Remains on Lasix drip. - Cardiovascular Details: S1, S2 present. Tachycardia, irregular rate, rhythm. Atrial fibrillation with rapid ventricular response. Trace bilateral lower extremity edema present. - Gastrointestinal Gastrointestinal Comment(s): Abdomen soft, nontender, nondistended, round. Bowel sounds active 4 quadrants. Vital tube feeding infusing 30 mL per hour. - Genitourinary Genitourinary Comment(s): Duong present draining clear, yellow urine. - Labs CBC & Chem 7: 10/10/16 03:45 10/10/16 03:45 Labs: Abnormal Lab Results - Last 24 Hours (Table) 10/09/16 10/09/16 10/10/16 Range/Units 13:04 17:57 01:16 WBC (3.8-10.6) k/uL RBC (4.30-5.90) m/uL Hgb (13.0-17.5) gm/dL Hct (39.0-53.0) % RDW (11.5-15.5) % Neutrophils # (1.3-7.7) k/uL Lymphocytes # (1.0-4.8) k/uL PT (9.0-12.0) sec ABG pH (7.35-7.45) ABG pCO2 (35-45) mmHg ABG pO2 (83-108) mmHg ABG HCO3 (21-25) mmol/L ABG Total CO2 (19-24) mmol/L Sodium (137-145) mmol/L Potassium (3.5-5.1) mmol/L BUN (9-20) mg/dL Creatinine (0.66-1.25) mg/dL Glucose (74-99) mg/dL POC Glucose (mg/dL) 150 H 162 H 184 H (75-99) mg/dL Calcium (8.4-10.2) mg/dL Ionized Calcium Guille (4.5-5.3) mg/dL Total Bilirubin (0.2-1.3) mg/dL Total Protein (6.3-8.2) g/dL Albumin (3.5-5.0) g/dL 10/10/16 10/10/16 10/10/16 Range/Units 03:45 03:45 03:45 WBC 18.6 H (3.8-10.6) k/uL RBC 3.28 L (4.30-5.90) m/uL Hgb 9.9 L (13.0-17.5) gm/dL Hct 30.8 L (39.0-53.0) % RDW 17.8 H (11.5-15.5) % Neutrophils # 17.0 H (1.3-7.7) k/uL Lymphocytes # 0.6 L (1.0-4.8) k/uL PT (9.0-12.0) sec ABG pH (7.35-7.45) ABG pCO2 (35-45) mmHg ABG pO2 (83-108) mmHg ABG HCO3 (21-25) mmol/L ABG Total CO2 (19-24) mmol/L Sodium 146 H (137-145) mmol/L Potassium 3.3 L (3.5-5.1) mmol/L BUN 45 H (9-20) mg/dL Creatinine 1.40 H (0.66-1.25) mg/dL Glucose 165 H (74-99) mg/dL POC Glucose (mg/dL) (75-99) mg/dL Calcium 7.0 L (8.4-10.2) mg/dL Ionized Calcium Guille 3.8 L (4.5-5.3) mg/dL Total Bilirubin 1.5 H (0.2-1.3) mg/dL Total Protein 5.7 L (6.3-8.2) g/dL Albumin 2.8 L (3.5-5.0) g/dL 10/10/16 10/10/16 10/10/16 Range/Units 03:45 06:21 07:08 WBC (3.8-10.6) k/uL RBC (4.30-5.90) m/uL Hgb (13.0-17.5) gm/dL Hct (39.0-53.0) % RDW (11.5-15.5) % Neutrophils # (1.3-7.7) k/uL Lymphocytes # (1.0-4.8) k/uL PT 18.4 H (9.0-12.0) sec ABG pH (7.35-7.45) ABG pCO2 (35-45) mmHg ABG pO2 (83-108) mmHg ABG HCO3 (21-25) mmol/L ABG Total CO2 (19-24) mmol/L Sodium (137-145) mmol/L Potassium (3.5-5.1) mmol/L BUN (9-20) mg/dL Creatinine (0.66-1.25) mg/dL Glucose (74-99) mg/dL POC Glucose (mg/dL) 185 H 173 H (75-99) mg/dL Calcium (8.4-10.2) mg/dL Ionized Calcium Guille (4.5-5.3) mg/dL Total Bilirubin (0.2-1.3) mg/dL Total Protein (6.3-8.2) g/dL Albumin (3.5-5.0) g/dL 10/10/16 Range/Units 08:46 WBC (3.8-10.6) k/uL RBC (4.30-5.90) m/uL Hgb (13.0-17.5) gm/dL Hct (39.0-53.0) % RDW (11.5-15.5) % Neutrophils # (1.3-7.7) k/uL Lymphocytes # (1.0-4.8) k/uL PT (9.0-12.0) sec ABG pH 7.58 H (7.35-7.45) ABG pCO2 30 L (35-45) mmHg ABG pO2 72 L (83-108) mmHg ABG HCO3 28 H (21-25) mmol/L ABG Total CO2 29 H (19-24) mmol/L Sodium (137-145) mmol/L Potassium (3.5-5.1) mmol/L BUN (9-20) mg/dL Creatinine (0.66-1.25) mg/dL Glucose (74-99) mg/dL POC Glucose (mg/dL) (75-99) mg/dL Calcium (8.4-10.2) mg/dL Ionized Calcium Guille (4.5-5.3) mg/dL Total Bilirubin (0.2-1.3) mg/dL Total Protein (6.3-8.2) g/dL Albumin (3.5-5.0) g/dL Microbiology - Last 24 Hours (Table) 10/06/16 21:00 Gram Stain - Final Sputum Sputum Culture - Final Haemophilus influenzae Serratia marcescens - Imaging and Cardiology Chest x-ray: report reviewed, image reviewed Assessment and Plan (1) Status post aortic valve replacement Status: Acute (2) Status post mitral valve repair Status: Acute (3) Acute renal failure Status: Acute (4) Neutrophilic leukocytosis Status: Acute (5) Atrial fibrillation with RVR Status: Acute (6) Histoplasmosis Status: Acute (7) Hypercholesterolemia Status: Acute (8) Hypertension Status: Acute (9) Hypothyroidism (acquired) Status: Acute (10) Obesity Status: Acute (11) Paroxysmal atrial fibrillation Status: Acute Plan: 1. Continue aspirin, Lopressor. 2. Continue amiodarone for A. fib prophylaxis. 3. Continue lasix drip per pulmonology, monitor urine output, labs. 4. Continue antibiotics per infectious disease 5. Wean levo as tolerated 6. Ventilator management per pulmonology, wean O2 as tolerated. 7. Replace calcium. 8. Daily labs, x-rays 9. Strict I/O, daily weights. 10. More recommendations as patient progresses. Time with Patient: Greater than 30
--- NOTE | 2016-10-10 12:13 | P.PN ---
Subjective Principal diagnosis: Acute hypoxic respiratory failure requiring intubation and mechanical ventilation This is a 71-year-old white male who was recently discharged from [facility] following aortic valve replacement and mitral valve repair he also had a mediastinal lymph node positive for histoplasmosis. His postoperative course was relatively uneventful, patient was actually discharged home last Tuesday. Yesterday morning, the called and she was concerned that her may be having seizure-like activity were and the patient went completely stiff, shaking all over, and he was staring blankly. He appeared at the time to be confused, and the 2 days. EMS was called, and the patient was brought into the ER. Upon arrival the patient was noted to be extremely short of breath, relatively hypoxic, and he was requiring at least 6 L of oxygen by nasal cannula. Chest x-ray was suggestive of congestive heart failure, patient was in atrial fibrillation and RVR with heart rate in the 120 range. Patient was already anticoagulated, and his INR was therapeutic upon presentation. At any rate patient was transferred to the ICU, and shortly after he arrived to the ICU, I was notified by the nurse taking care of the patient that he was not doing too well. Patient was struggling to breathe, hence I recommended immediate intubation and placement on mechanical ventilation. I reviewed the chest x-ray, and I felt that the chest x-ray clearly shows pulmonary edema, whether this is cardiogenic or noncardiogenic pulmonary edema it is difficult to tell, however at this point and considering the patient's cardiac history and considering the presentation of atrial fibrillation and RVR, I believe this is cardiogenic unless proven otherwise. Patient was given Lasix yesterday, and he was placed on Lasix drip today. His INR was noted to be elevated, however I was able to place a right triple-lumen catheter in the right groin to avoid the bleeding and if bleeding is noted that could be easily tampo naded. Echocardiogram showed good LV function and according to the combination building inspector his valves were noted to be unremarkable, patient was placed empirically on antibiotics just in case if we are dealing with underlying pneumonia which is again felt to be less likely considering the acute presentation. Even the issue of histoplasmosis is most likely chronic, and I strongly doubt chronic active histoplasmosis. But the patient was already on itraconazole on outpatient basis. The patient himself is now on mechanical ventilation, intubated, and on propofol drip. Patient was noted to have intermittent episodes of profound hypertension when suctioned. This is noted to be without bradycardia, but the blood pressure completely goes down to the 60s and 70s systolic with minimal suctioning of the endotracheal tube. Reevaluated today on 10/08/2016, patient remains on mechanical ventilation, however he is down to 50% and PEEP of 5. His gases are definitely improved, chest x-ray is showing definite improvement but the pleural effusions bilaterally seem to be a bit larger. This tissue edema seems to be a bit better. Ultrasound of the chest today showed a 5.6 cm pocket on the right side , and a left is pocket of 6.1 cm. INR on this patient remains elevated, and I believe at this point we will continue diuresing the patient rather than going for thoracentesis. ABG this morning showed a pO2 of a 0 pCO2 of 36 pH of 7.44. Leukocytosis seems to be significantly better, the limbs count is 18.8 and it was 31.9 on admission. Electrolytes are normal BUN is down to 60 creatinine is down to 2.01 patient renal profile is improving in spite of the fact that the patient diuresed about 5 L so far on Lasix drip. Patient remains intubated, on propofol drip, and he is requiring norepinephrine for low blood pressure. Heart rate seems to be better controlled, but the patient remains in A. fib with RVR intermittently. Reevaluated today on 10/09/2016, remains on mechanical ventilation, FiO2 is 50% PEEP is 5. Chest x-ray continues to show some improvement but continues to have bilateral pleural effusions left more so than right. ABG today is significantly improved pO2 is 100 pCO2 is 37 pH of 7.46. Renal profile is also improving, BUN is down to 50 creatinine is down to 1.40, and initially his creatinine was 2.86 upon presentation and his BUN was 67. Clearly the patient seems to be having better renal perfusion to see such an improvement in his overall renal status. And I am more convinced now that the presentation is a presentation of congestive heart failure and the patient will remain on Lasix drip at 5 mg per hour. Patient remains sedated, on propofol drip, we will plan to wake him up, and assess mental status, but I do not plan to wean and extubate at this point. Patient is not quite ready at this point. Continues to be in A. fib with RVR, and that is being addressed by cardiology on the case. Patient is nutritionally supported, he is on tube feeding. On 10/10/2016, patient remains on mechanical ventilation, he is back again on FiO2 of 50%, PEEP of 5, assist control rate of 16. ABG today showed a pO2 of 72 pCO2 of 30 pH of 7.58, hence his assist control rate was decreased from 20- 16. Chest x-ray continues to show pulmonary edema and bilateral pleural effusions, possibility of underlying pneumonia is not entirely ruled out especially with his sputum showing Haemophilus influenza and Serratia marcescens., patient remains on Zosyn. We'll go ahead and add Merrem for adequate coverage of both including Haemophilus and Serratia. Dr. Ramos is on the case, however he saw the patient last on 10/08, he is probably unaware of the new findings/cultures. Will ask RN to notify Dr. Ramos of the new cultures. Considering his chest x-ray, and the ABG is marginal, I don't believe the patient is ready for weaning, however I plan to arouse the patient today, assess his mental status, may or may not given a trial of weaning, but I am certain he is not ready to be weaned at this point. Objective - Vital Signs Vital signs: Vital Signs Temp 99.7 F H 10/10/16 08:00 Pulse 129 H 10/10/16 11:43 Resp 23 10/10/16 09:00 BP 119/88 10/08/16 05:00 Pulse Ox 95 10/10/16 09:00 Intake & Output 10/09/16 10/10/16 10/10/16 18:59 06:59 18:59 Intake Total 666 1330.667 184.0 Output Total 1895 2550 575 Balance -1229 -1219.333 -391.0 Weight 112.8 kg 117.2 kg Intake: IV 276 276 69 Pressure Bag 36 36 9 Sodium Chloride 0.9% 1, 240 240 60 000 ml @ 20 mls/hr IV . Q24H [facility] Rx#:[id number] Intake, IV Titration 350 684.667 25.0 Amount Norepinephrin 16 mg-0.9% 250 250.000 Ns Pmx 16 mg In 250 ml @ Titrate IV .Q0M [facility] Rx#: [id number] Piperacillin-Tazobactam 3 37.5 25.0 .375 gm In Dextrose/Water 1 50ml.bag @ 12.5 mls/hr IVPB Q8H [facility] Rx#: [id number] Propofol 500 mg In Empty 100 147.167 Bag 1 bag @ Titrate IV . Q0M [facility] Rx#:[id number] Vancomycin 1,750 mg In 250 Sodium Chloride 0.9% 250 ml @ 125 mls/hr IVPB Q24H [facility] Rx#:[id number] Tube Feeding 40 280 90 Other 90 Output: Urine 1895 2550 575 Other: Voiding Method Indwelling Catheter Indwelling Catheter Indwelling Catheter ABP, PAP, CO, CI - Last Documented Arterial Blood Pressure 113/59 - Exam Physical Exam: Revealed a 71-year-old obese, sedated, on mechanical ventilation , endotracheal tube is intact. HEENT:[Neck is supple.] [No neck masses.] [No thyromegaly.] [No JVD.] Chest: [Neck is in the rhonchi noted at the bases. With faint expiratory wheezes] proximal sternum seems to be not well approximated, sternal wires do not seem to be on the same line based on the chest x-ray. Cardiac Exam: [Irregular irregular rhythm Normal S1 and S2, no S3 gallop, no murmur.] Abdomen: [Soft, nontender, no megaly, no rebound, no guarding, normal bowel sounds.] Extremities: [No clubbing, 2+ bipedal edema, no cyanosis.] Neurological Exam: [Cannot be assessed, patient is on mechanical ventilation and propofol drip - Labs CBC & Chem 7: 10/10/16 03:45 10/10/16 03:45 Labs: Abnormal Lab Results - Last 24 Hours (Table) 10/09/16 10/09/16 10/10/16 Range/Units 13:04 17:57 01:16 WBC (3.8-10.6) k/uL RBC (4.30-5.90) m/uL Hgb (13.0-17.5) gm/dL Hct (39.0-53.0) % RDW (11.5-15.5) % Neutrophils # (1.3-7.7) k/uL Lymphocytes # (1.0-4.8) k/uL PT (9.0-12.0) sec ABG pH (7.35-7.45) ABG pCO2 (35-45) mmHg ABG pO2 (83-108) mmHg ABG HCO3 (21-25) mmol/L ABG Total CO2 (19-24) mmol/L Sodium (137-145) mmol/L Potassium (3.5-5.1) mmol/L BUN (9-20) mg/dL Creatinine (0.66-1.25) mg/dL Glucose (74-99) mg/dL POC Glucose (mg/dL) 150 H 162 H 184 H (75-99) mg/dL Calcium (8.4-10.2) mg/dL Ionized Calcium Guille (4.5-5.3) mg/dL Total Bilirubin (0.2-1.3) mg/dL Total Protein (6.3-8.2) g/dL Albumin (3.5-5.0) g/dL 10/10/16 10/10/16 10/10/16 Range/Units 03:45 03:45 03:45 WBC 18.6 H (3.8-10.6) k/uL RBC 3.28 L (4.30-5.90) m/uL Hgb 9.9 L (13.0-17.5) gm/dL Hct 30.8 L (39.0-53.0) % RDW 17.8 H (11.5-15.5) % Neutrophils # 17.0 H (1.3-7.7) k/uL Lymphocytes # 0.6 L (1.0-4.8) k/uL PT (9.0-12.0) sec ABG pH (7.35-7.45) ABG pCO2 (35-45) mmHg ABG pO2 (83-108) mmHg ABG HCO3 (21-25) mmol/L ABG Total CO2 (19-24) mmol/L Sodium 146 H (137-145) mmol/L Potassium 3.3 L (3.5-5.1) mmol/L BUN 45 H (9-20) mg/dL Creatinine 1.40 H (0.66-1.25) mg/dL Glucose 165 H (74-99) mg/dL POC Glucose (mg/dL) (75-99) mg/dL Calcium 7.0 L (8.4-10.2) mg/dL Ionized Calcium Guille 3.8 L (4.5-5.3) mg/dL Total Bilirubin 1.5 H (0.2-1.3) mg/dL Total Protein 5.7 L (6.3-8.2) g/dL Albumin 2.8 L (3.5-5.0) g/dL 10/10/16 10/10/16 10/10/16 Range/Units 03:45 06:21 07:08 WBC (3.8-10.6) k/uL RBC (4.30-5.90) m/uL Hgb (13.0-17.5) gm/dL Hct (39.0-53.0) % RDW (11.5-15.5) % Neutrophils # (1.3-7.7) k/uL Lymphocytes # (1.0-4.8) k/uL PT 18.4 H (9.0-12.0) sec ABG pH (7.35-7.45) ABG pCO2 (35-45) mmHg ABG pO2 (83-108) mmHg ABG HCO3 (21-25) mmol/L ABG Total CO2 (19-24) mmol/L Sodium (137-145) mmol/L Potassium (3.5-5.1) mmol/L BUN (9-20) mg/dL Creatinine (0.66-1.25) mg/dL Glucose (74-99) mg/dL POC Glucose (mg/dL) 185 H 173 H (75-99) mg/dL Calcium (8.4-10.2) mg/dL Ionized Calcium Guille (4.5-5.3) mg/dL Total Bilirubin (0.2-1.3) mg/dL Total Protein (6.3-8.2) g/dL Albumin (3.5-5.0) g/dL 10/10/16 Range/Units 08:46 WBC (3.8-10.6) k/uL RBC (4.30-5.90) m/uL Hgb (13.0-17.5) gm/dL Hct (39.0-53.0) % RDW (11.5-15.5) % Neutrophils # (1.3-7.7) k/uL Lymphocytes # (1.0-4.8) k/uL PT (9.0-12.0) sec ABG pH 7.58 H (7.35-7.45) ABG pCO2 30 L (35-45) mmHg ABG pO2 72 L (83-108) mmHg ABG HCO3 28 H (21-25) mmol/L ABG Total CO2 29 H (19-24) mmol/L Sodium (137-145) mmol/L Potassium (3.5-5.1) mmol/L BUN (9-20) mg/dL Creatinine (0.66-1.25) mg/dL Glucose (74-99) mg/dL POC Glucose (mg/dL) (75-99) mg/dL Calcium (8.4-10.2) mg/dL Ionized Calcium Guille (4.5-5.3) mg/dL Total Bilirubin (0.2-1.3) mg/dL Total Protein (6.3-8.2) g/dL Albumin (3.5-5.0) g/dL Microbiology - Last 24 Hours (Table) 10/06/16 21:00 Gram Stain - Final Sputum Sputum Culture - Final Haemophilus influenzae Serratia marcescens Assessment and Plan Plan: Impression: 1 acute hypoxic respiratory failure requiring intubation and mechanical ventilation secondary to cardiogenic pulmonary edema however Possibility of sepsis and noncardiogenic pulmonary edema is in the differential, but again felt to be less likely. However the patient will be empirically covered with antibiotics. Sputum cultures are positive for Haemophilus influenza, however the patient is on appropriate antibiotics coverage and will cover Haemophilus influenza and Serratia marcescens utilizing Zosyn and meropenem The leukocytosis upon presentation is a bit concerning., But that seems to be improving and his WBC count is much better today. And Dr. Ramos will be notified about the cultures from the sputum. 2 status post mitral valve repair and aortic valve replacement as well as mediastinal node biopsy in the last 10 days. 3 acute renal failure, most likely secondary to poor perfusion, especially with the fact that the patient is noted to drop his blood pressure significantly upon coughing and this was witnessed while in the ICU. I believe the patient must have developed acute kidney injury, acute tubular necrosis. This seems to be improving steadily since admission and obviously the patient seems to be perfusing his kidneys much better now that he was upon presentation. 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 5 bilateral pleural effusions, most likely effusions of congestive heart failure , I plan to treat with diuretics rather than thoracentesis at this point, especially with INR being elevated. If the effusion gets any larger, may have to drain with ultrasound guided thoracentesis. 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 7 multiple comorbidities including hypercholesterolemia, hypertension, hypothyroidism, obesity, osteoarthritis, thyroid cancer with previous surgery and radiation, history of rheumatic fever, and history of moderate pulmonary hypertension. Recommendation: Patient will remain on mechanical ventilation, diuretics, bronchodilators, antibiotics for Haemophilus influenza and Serratia marcescens in the sputum as per infectious disease on the case, no plans to wean today, continue diuresis, continue antibiotics, monitor the pleural effusions bilaterally on a daily basis, and if they get any larger then I would consider thoracentesis after noticing that the INR is down to below 2. Continue nutritional support. Critical care time is 35 minutes. Nutritional status will be optimized via enteral feeding. And this will continue. Time with Patient: Greater than 30
[2016-10-10 12:15] LABS: Glucose,Whole Blood 190 mg/dL (75-99)
[2016-10-10] MEDS: MEROPENEM 1 GM in SODIUM CHLORIDE 0.9% 100 ML IVPB SCH ×2 (13:12→21:14)
[2016-10-10] MEDS ORDERED: DIGOXIN 250 MCG/ML 2 ML AMP IVP ONE (16:53)
[2016-10-10] MEDS: FUROSEMIDE 250 MG in SODIUM CHLORIDE 0.9% 225 ML IVPB SCH (17:30)
[2016-10-10 17:48] LABS: Glucose,Whole Blood 172 mg/dL (75-99)
[2016-10-10] MEDS: SODIUM CHLORIDE 0.9% 1,000 ML IV SCH (18:03)
[2016-10-10] MEDS: ACETAMINOPHEN IV (For NPO) 1,000 MG in EMPTY BAG 1 BAG IVPB PRN (22:50)
[2016-10-10] MEDS: POTASSIUM CHLORIDE ORAL LIQUID 40 MEQ/30 ML CUP PO SCH (22:50)
[2016-10-11] MEDS: IBUPROFEN ORAL SUSP 100 MG/5 ML CUP PO PRN (02:21)
[2016-10-11] MEDS: HYDROcodone/APAP 5-325MG 1 EACH TAB PO PRN (02:57)
[2016-10-11] MEDS: POTASSIUM CHLORIDE ORAL LIQUID 40 MEQ/30 ML CUP PO SCH ×2 (03:07→04:35)
[2016-10-11] MEDS: INSULIN LISPRO (humaLOG) 300 UNIT/3 ML VIAL SQ SCH ×5 (03:12→22:56)
[2016-10-11 03:16] LABS: Glucose,Whole Blood 214 mg/dL (75-99)
[2016-10-11] MEDS: IPRATROPIUM 0.5 MG/2.5 ML NEBU INHALATION SCH ×6 (03:27→23:36)
[2016-10-11] MEDS: LEVALBUTEROL NEB (CONC) 1.25 MG/0.5 ML AMP INHALATION SCH ×6 (03:27→23:36)
[2016-10-11] MEDS: PIPERACILLIN-TAZOBACTAM 3.375 GM in DEXTROSE/WATER 1 50ML.BAG IVPB SCH ×3 (04:35→20:56)
[2016-10-11] MEDS: ACETAMINOPHEN IV (For NPO) 1,000 MG in EMPTY BAG 1 BAG IVPB PRN ×2 (05:22→07:24)
[2016-10-11] MEDS: NOREPINEPHRIN 16 MG-0.9%NS PMX 16 MG/250 ML ML IV SCH (05:40)
[2016-10-11] MEDS ORDERED: methylPREDNISolone SOD SUCCI 125 MG/2 ML VIAL IV STA (05:51)
[2016-10-11] MEDS ORDERED: IV VANCOMYCIN PER PHARMACY 1 EACH MISC MISCELLANE PRN (06:17)
[2016-10-11] MEDS ORDERED: ACETAMINOPHEN IV (For NPO) 1,000 MG in EMPTY BAG 1 BAG IVPB STA (06:30)
[2016-10-11 06:58] LABS: Anisocytosis Slight; Basophils # (A) 0.1 k/uL (0-0.2); Basophils % (A) 0 %; CH 29.9; CHCM 31.6; Eosinophils % (A) 0 %; HCT 31.5 % (39.0-53.0); HDW 3.84; HGB 10.1 gm/dL (13.0-17.5); Hypochromasia Moderate; Luc # (Auto) 0.38; Luc % (Auto) 2; Lymphocytes # (A) 1.1 k/uL (1.0-4.8); Lymphocytes % (A) 5 %; MCH 30.5 pg (25.0-35.0); MCV 95.4 fL (80.0-100.0); Macrocytosis Slight; Mean Platelet Volume 7.5; Monocytes # (A) 1.4 k/uL (0-1.0); Monocytes % (A) 6 %; Neutrophils # (A) 19.5 k/uL (1.3-7.7); Neutrophils % (A) 87 %; Poikilocytosis Slight; WBC 22.4 k/uL (3.8-10.6); WBC (Perox) 23.18
[2016-10-11] MEDS ORDERED: VANCOMYCIN 1,750 MG in SODIUM CHLORIDE 0.9% 250 ML IVPB ONE (07:00)
[2016-10-11 07:07] LABS: INR 1.5 (<1.1); Prothrombin Time 14.3 sec (9.0-12.0)
[2016-10-11] MEDS: LEVOTHYROXINE 75 MCG TAB PO SCH (07:11)
[2016-10-11] MEDS: AMIODARONE 200 MG TAB PO SCH ×2 (07:11→17:42)
[2016-10-11 07:50] LABS: Glucose,Whole Blood 167 mg/dL (75-99)
[2016-10-11 08:10] LABS: Magnesium 2.5 mg/dL (1.6-2.3); Phosphorous 3.7 mg/dL (2.5-4.5); Potassium 4.9 mmol/L (3.5-5.1); Total Bilirubin 1.5 mg/dL (0.2-1.3); Total Protein 5.9 g/dL (6.3-8.2)
[2016-10-11] MEDS: SENNOSIDES 8.6 MG TAB PO SCH ×2 (08:16→20:48)
[2016-10-11] MEDS: DOCUSATE ORAL SOLN 100 MG/10 ML CUP PO SCH ×3 (08:16→20:49)
[2016-10-11] MEDS: VANCOMYCIN 1,750 MG in SODIUM CHLORIDE 0.9% 250 ML IVPB SCH (08:17)
[2016-10-11 08:23] LABS: ABG HCO3 29 mmol/L (21-25); ABG PCO2 43 mmHg (35-45); ABG PH 7.44 (7.35-7.45); ABG PO2 78 mmHg (83-108); ABG TCO2 30 mmol/L (19-24)
--- NOTE | 2016-10-11 08:28 | XR ---
EXAMINATION TYPE: XR chest 1V portable DATE OF EXAM: 10/11/2016 6:56 AM COMPARISON: NONE INDICATION: Previous abnormal chest x-ray TECHNIQUE: Single frontal view of the chest is obtained. FINDINGS: The heart size is enlarged. The pulmonary vasculature is normal. Left pleural effusion remains present. A right pleural effusion may be slightly increased but remains small. Endotracheal tube is present with tip above the linwood. Nasogastric tube transverses the thorax. EKG leads overlie the chest. IMPRESSION: 1. Bilateral pleural effusions may be slightly increasing on the right. 2. Cardiomegaly. 3. Lines and catheters discussed above.
[2016-10-11] MEDS ORDERED: PROPOFOL 1,000 MG in EMPTY BAG 1 BAG IV SCH (08:30)
[2016-10-11] MEDS: DIGOXIN 250 MCG/ML 2 ML AMP IVP SCH (08:32)
[2016-10-11] MEDS: ASPIRIN 81 MG CHEW PO SCH (08:32)
[2016-10-11] MEDS: CHLORHEXIDINE GLUCONATE 15 ML CUP MUCOUS MEM SCH ×2 (08:33→20:47)
[2016-10-11] MEDS: METOPROLOL TARTRATE 25 MG TAB PO SCH ×2 (08:33→22:57)
[2016-10-11] MEDS: PANTOPRAZOLE 40 MG/10 ML VIAL IVP SCH (08:33)
[2016-10-11] MEDS: MEROPENEM 1 GM in SODIUM CHLORIDE 0.9% 100 ML IVPB SCH ×2 (08:33→20:56)
[2016-10-11] MEDS ORDERED: LIDOCAINE 2% INJ 20 MG/ML SQ ONE (10:09)
--- NOTE | 2016-10-11 10:20 | P.PN ---
Subjective Principal diagnosis: Acute hypoxic respiratory failure requiring mechanical ventilation. Sputum culture positive for Haemophilus influenza, serratia marcescens. Currently on Zosyn, vanco. Merropenem added. Infectious disease following. CAT scan of the chest on 10/09/16 demonstrated dehiscence of sternal wires. POD #14 aortic valve replacement, mitral valve repair, modified Frederick maze, mediastinal lymph node biopsy. Remains sedated on mechanical ventilation. Developed fever overnight of 102F, pt placed on cooling device, IV tylenol given, new blood cultures sent. Levo being weaned off, propofol being weaned off. Objective - Vital Signs Vital signs: Vital Signs Temp 100.8 F H 10/11/16 08:00 Pulse 120 H 10/11/16 08:50 Resp 11 L 10/11/16 08:00 BP 119/88 10/08/16 05:00 Pulse Ox 96 10/11/16 08:00 Intake & Output 10/10/16 10/11/16 10/11/16 18:59 06:59 18:59 Intake Total 1106.586 725.760 254.797 Output Total 1545 1025 300 Balance -438.414 -299.240 -45.203 Weight 119 kg Intake: IV 276 276 23 Pressure Bag 36 36 3 Sodium Chloride 0.9% 1, 240 240 20 000 ml @ 20 mls/hr IV . Q24H [facility] Rx#:[id number] Intake, IV Titration 680.586 449.760 201.797 Amount ACETAMINOPHEN IV (For NPO 200 100 ) 1,000 mg In Empty Bag 1 bag @ 400 mls/hr IVPB ONCE [facility] Rx#:[id number] Furosemide 250 mg In 184.833 Sodium Chloride 0.9% 225 ml @ 5 MG/HR 5 mls/hr IVPB .Q24H [facility] Rx#: [id number] Meropenem 1 gm In Sodium 100 100 Chloride 0.9% 100 ml @ 200 mls/hr IVPB Q12HR [facility] Rx#:[id number] Norepinephrin 16 mg-0.9% 250 89.297 Ns Pmx 16 mg In 250 ml @ Titrate IV .Q0M [facility] Rx#: [id number] Piperacillin-Tazobactam 3 62.5 87.5 12.5 .375 gm In Dextrose/Water 1 50ml.bag @ 12.5 mls/hr IVPB Q8H [facility] Rx#: [id number] Propofol 500 mg In Empty 83.253 62.260 Bag 1 bag @ Titrate IV . Q0M [facility] Rx#:[id number] Tube Feeding 150 30 Output: Urine 1545 1025 300 Other: Voiding Method Indwelling Catheter Indwelling Catheter # Bowel Movements 1 ABP, PAP, CO, CI - Last Documented Arterial Blood Pressure 128/70 - Constitutional General appearance: Present: no acute distress, obese - Respiratory Details: Lungs sounds very diminished bilaterally. Respirations even, nonlabored on mechanical ventilation. Current settings tidal volume 500, FiO2 50%, respiratory rate 14, PEEP of 8. - Cardiovascular Details: S1, S2 present. Tachycardia, irregular rate and rhythm, A. fib with RVR on telemetry. Sternum soft, movable, however incision remains closed. Heart hugger device in place to provide support to sternum. Teds/SCDs present. Trace bilateral lower extremity edema still present. - Gastrointestinal Gastrointestinal Comment(s): Abdomen soft, nontender, nondistended, round. Hypoactive bowel sounds present 4 quadrants. Vital tube feeding at 30 mL/hr through OG tube continues. - Genitourinary Genitourinary Comment(s): Duong present draining clear, yellow urine. Remains on Lasix drip. - Integumentary Integumentary Comment(s): Anterior chest incision well approximated without any area of redness. - Neurologic Neurologic Comment(s): Starting to open eyes when sedation off/wean down. - Allied health notes Allied health notes reviewed: nursing - Labs CBC & Chem 7: 10/11/16 06:45 10/11/16 06:45 Labs: Abnormal Lab Results - Last 24 Hours (Table) 10/10/16 10/10/16 10/10/16 Range/Units 12:13 17:34 18:30 WBC (3.8-10.6) k/uL RBC (4.30-5.90) m/uL Hgb (13.0-17.5) gm/dL Hct (39.0-53.0) % RDW (11.5-15.5) % Neutrophils # (1.3-7.7) k/uL Monocytes # (0-1.0) k/uL PT (9.0-12.0) sec ABG pO2 (83-108) mmHg ABG HCO3 (21-25) mmol/L ABG Total CO2 (19-24) mmol/L Sodium (137-145) mmol/L Potassium 3.4 L (3.5-5.1) mmol/L Chloride (98-107) mmol/L BUN (9-20) mg/dL Creatinine (0.66-1.25) mg/dL Glucose (74-99) mg/dL POC Glucose (mg/dL) 190 H 172 H (75-99) mg/dL Calcium (8.4-10.2) mg/dL Ionized Calcium Guille (4.5-5.3) mg/dL Magnesium (1.6-2.3) mg/dL Total Bilirubin (0.2-1.3) mg/dL Total Protein (6.3-8.2) g/dL Albumin (3.5-5.0) g/dL 10/11/16 10/11/16 10/11/16 Range/Units 03:12 06:45 06:45 WBC 22.4 H (3.8-10.6) k/uL RBC 3.30 L (4.30-5.90) m/uL Hgb 10.1 L (13.0-17.5) gm/dL Hct 31.5 L (39.0-53.0) % RDW 18.0 H (11.5-15.5) % Neutrophils # 19.5 H (1.3-7.7) k/uL Monocytes # 1.4 H (0-1.0) k/uL PT (9.0-12.0) sec ABG pO2 (83-108) mmHg ABG HCO3 (21-25) mmol/L ABG Total CO2 (19-24) mmol/L Sodium 150 H (137-145) mmol/L Potassium (3.5-5.1) mmol/L Chloride 109 H (98-107) mmol/L BUN 56 H (9-20) mg/dL Creatinine 1.80 H (0.66-1.25) mg/dL Glucose 165 H (74-99) mg/dL POC Glucose (mg/dL) 214 H (75-99) mg/dL Calcium 7.0 L (8.4-10.2) mg/dL Ionized Calcium Guille 4.0 L (4.5-5.3) mg/dL Magnesium 2.5 H (1.6-2.3) mg/dL Total Bilirubin 1.5 H (0.2-1.3) mg/dL Total Protein 5.9 L (6.3-8.2) g/dL Albumin 2.7 L (3.5-5.0) g/dL 10/11/16 10/11/16 10/11/16 Range/Units 06:45 07:48 07:53 WBC (3.8-10.6) k/uL RBC (4.30-5.90) m/uL Hgb (13.0-17.5) gm/dL Hct (39.0-53.0) % RDW (11.5-15.5) % Neutrophils # (1.3-7.7) k/uL Monocytes # (0-1.0) k/uL PT 14.3 H (9.0-12.0) sec ABG pO2 78 L (83-108) mmHg ABG HCO3 29 H (21-25) mmol/L ABG Total CO2 30 H (19-24) mmol/L Sodium (137-145) mmol/L Potassium (3.5-5.1) mmol/L Chloride (98-107) mmol/L BUN (9-20) mg/dL Creatinine (0.66-1.25) mg/dL Glucose (74-99) mg/dL POC Glucose (mg/dL) 167 H (75-99) mg/dL Calcium (8.4-10.2) mg/dL Ionized Calcium Guille (4.5-5.3) mg/dL Magnesium (1.6-2.3) mg/dL Total Bilirubin (0.2-1.3) mg/dL Total Protein (6.3-8.2) g/dL Albumin (3.5-5.0) g/dL Microbiology - Last 24 Hours (Table) 10/06/16 21:00 Gram Stain - Final Sputum Sputum Culture - Final Haemophilus influenzae Serratia marcescens - Imaging and Cardiology Chest x-ray: report reviewed, image reviewed Assessment and Plan (1) Status post aortic valve replacement Status: Acute (2) Status post mitral valve repair Status: Acute (3) Acute renal failure Status: Acute (4) Neutrophilic leukocytosis Status: Acute (5) Atrial fibrillation with RVR Status: Acute (6) Histoplasmosis Status: Acute (7) Hypercholesterolemia Status: Acute (8) Hypertension Status: Acute (9) Hypothyroidism (acquired) Status: Acute (10) Obesity Status: Acute (11) Paroxysmal atrial fibrillation Status: Acute Plan: 1. Continue aspirin, Lopressor. Daily digoxin ordered by cardiology 2. Continue amiodarone for A. fib prophylaxis. Increased to 400 mg twice a day by cardiology 3. Would recommend discontinuing Lasix drip in view of increasing BUN/ creatinine/sodium level. 4. Continue antibiotics per infectious disease. Merropenem added 5. Wean levo as tolerated 6. Ventilator management per pulmonology, wean O2 as tolerated. No plans for extubation until sternum stability established. 7. PICC line to be placed today. DC femoral triple lumen central line. 8. Replace calcium. 9. Daily labs, x-rays 10. Strict I/O, daily weights. 11. More recommendations as patient progresses. Time with Patient: Greater than 30
--- NOTE | 2016-10-11 10:45 | XR ---
EXAMINATION TYPE: XR chest 1V portable DATE OF EXAM: 10/11/2016 10:24 AM COMPARISON: 10/11/2016 earlier exam INDICATION: Previous abnormal chest TECHNIQUE: Single frontal view of the chest is obtained supine view FINDINGS: The heart size is normal. The pulmonary vasculature is normal. Right pleural effusion and smaller left pleural effusion are li yakov present. Mild increased lung markings may be present. This could be artifact over the patient. Endotracheal tube is present with tip above the linwood. Nasogastric tube transverses the thorax. EKG leads overlie the chest. PICC line enters on the left with the tip in superior vena cava region. IMPRESSION: 1. Small bilateral pleural effusions. 2. Some cardiomegaly may be present. 3. Multiple lines and catheters discussed above
--- NOTE | 2016-10-11 10:50 | IR ---
EXAMINATION TYPE: IR cvc insert >=5 years DATE OF EXAM: 10/11/2016 10:33 AM COMPARISON: NONE HISTORY: Status post coronary artery bypass with sternal dehiscence, needs long-term intravenous acce ss for therapy FINDINGS: Maximal barrier technique was utilized. The skin overlying the left basilic vein was local ized with ultrasound and noted to be compressible and patent by ultrasound. An ultrasound image was obtained and submitted on patient's chart. Sterile technique utilized with the ultrasound machine. Th e skin overlying was prepped and draped and Lidocaine used for local anesthesia. A skin nima was mad e with a scalpel. Access was gained to the vein under direct ultrasound guidance with a 21-gauge nee dle and a 0.018 inch wire was advanced. Access site was dilated with a peel-away sheath and the cath eter tailored to length. Catheter advanced centrally and a post procedure chest x-ray verified place ment with the tip at the cavoatrial junction. Catheter was fixed to the skin with suture and a steri le dressing placed. Hemostasis achieved and the catheter was aspirated and flushed with sterile sali ne. The patient remained in stable condition. IMPRESSION: STATUS POST ULTRASOUND GUIDED PICC LINE PLACEMENT, READY FOR USE. THIS PROCEDURE WAS PER FORMED BY THE UNDERSIGNED.
--- NOTE | 2016-10-11 11:44 | P.PN ---
Subjective Principal diagnosis: Acute hypoxic respiratory failure This is a 71-year-old white male who was recently discharged from [facility] following aortic valve replacement and mitral valve repair he also had a mediastinal lymph node positive for histoplasmosis. His postoperative course was relatively uneventful, patient was actually discharged home last Tuesday. Yesterday morning, the called and she was concerned that her may be having seizure-like activity were and the patient went completely stiff, shaking all over, and he was staring blankly. He appeared at the time to be confused, and the 2 days. EMS was called, and the patient was brought into the ER. Upon arrival the patient was noted to be extremely short of breath, relatively hypoxic, and he was requiring at least 6 L of oxygen by nasal cannula. Chest x-ray was suggestive of congestive heart failure, patient was in atrial fibrillation and RVR with heart rate in the 120 range. Patient was already anticoagulated, and his INR was therapeutic upon presentation. At any rate patient was transferred to the ICU, and shortly after he arrived to the ICU, I was notified by the nurse taking care of the patient that he was not doing too well. Patient was struggling to breathe, hence I recommended immediate intubation and placement on mechanical ventilation. I reviewed the chest x-ray, and I felt that the chest x-ray clearly shows pulmonary edema, whether this is cardiogenic or noncardiogenic pulmonary edema it is difficult to tell, however at this point and considering the patient's cardiac history and considering the presentation of atrial fibrillation and RVR, I believe this is cardiogenic unless proven otherwise. Patient was given Lasix yesterday, and he was placed on Lasix drip today. His INR was noted to be elevated, however I was able to place a right triple-lumen catheter in the right groin to avoid the bleeding and if bleeding is noted that could be easily tampo naded. Echocardiogram showed good LV function and according to the rac specialist his valves were noted to be unremarkable, patient was placed empirically on antibiotics just in case if we are dealing with underlying pneumonia which is again felt to be less likely considering the acute presentation. Even the issue of histoplasmosis is most likely chronic, and I strongly doubt chronic active histoplasmosis. But the patient was already on itraconazole on outpatient basis. The patient himself is now on mechanical ventilation, intubated, and on propofol drip. Patient was noted to have intermittent episodes of profound hypertension when suctioned. This is noted to be without bradycardia, but the blood pressure completely goes down to the 60s and 70s systolic with minimal suctioning of the endotracheal tube. Reevaluated today on 10/08/2016, patient remains on mechanical ventilation, however he is down to 50% and PEEP of 5. His gases are definitely improved, chest x-ray is showing definite improvement but the pleural effusions bilaterally seem to be a bit larger. This tissue edema seems to be a bit better. Ultrasound of the chest today showed a 5.6 cm pocket on the right side , and a left is pocket of 6.1 cm. INR on this patient remains elevated, and I believe at this point we will continue diuresing the patient rather than going for thoracentesis. ABG this morning showed a pO2 of a 0 pCO2 of 36 pH of 7.44. Leukocytosis seems to be significantly better, the limbs count is 18.8 and it was 31.9 on admission. Electrolytes are normal BUN is down to 60 creatinine is down to 2.01 patient renal profile is improving in spite of the fact that the patient diuresed about 5 L so far on Lasix drip. Patient remains intubated, on propofol drip, and he is requiring norepinephrine for low blood pressure. Heart rate seems to be better controlled, but the patient remains in A. fib with RVR intermittently. Reevaluated today on 10/09/2016, remains on mechanical ventilation, FiO2 is 50% PEEP is 5. Chest x-ray continues to show some improvement but continues to have bilateral pleural effusions left more so than right. ABG today is significantly improved pO2 is 100 pCO2 is 37 pH of 7.46. Renal profile is also improving, BUN is down to 50 creatinine is down to 1.40, and initially his creatinine was 2.86 upon presentation and his BUN was 67. Clearly the patient seems to be having better renal perfusion to see such an improvement in his overall renal status. And I am more convinced now that the presentation is a presentation of congestive heart failure and the patient will remain on Lasix drip at 5 mg per hour. Patient remains sedated, on propofol drip, we will plan to wake him up, and assess mental status, but I do not plan to wean and extubate at this point. Patient is not quite ready at this point. Continues to be in A. fib with RVR, and that is being addressed by cardiology on the case. Patient is nutritionally supported, he is on tube feeding. On 10/10/2016, patient remains on mechanical ventilation, he is back again on FiO2 of 50%, PEEP of 5, assist control rate of 16. ABG today showed a pO2 of 72 pCO2 of 30 pH of 7.58, hence his assist control rate was decreased from 20- 16. Chest x-ray continues to show pulmonary edema and bilateral pleural effusions, possibility of underlying pneumonia is not entirely ruled out especially with his sputum showing Haemophilus influenza and Serratia marcescens., patient remains on Zosyn. We'll go ahead and add Merrem for adequate coverage of both including Haemophilus and Serratia. Dr. Ramos is on the case, however he saw the patient last on 10/08, he is probably unaware of the new findings/cultures. Will ask RN to notify Dr. Ramos of the new cultures. Considering his chest x-ray, and the ABG is marginal, I don't believe the patient is ready for weaning, however I plan to arouse the patient today, assess his mental status, may or may not given a trial of weaning, but I am certain he is not ready to be weaned at this point. The patient is seen again today 10/11/2016 in follow-up in the intensive care unit. He remains intubated on the mechanical ventilator. Current vent settings assist control 14, tidal volume 500, FiO2 50% and a PEEP of 8. Morning ABGs reveal a P O2 of 78, pCO2 43, pH 7.44 with mild metabolic alkalosis. He is currently on Lasix drip at 5 mg per hour, levo fed is being weaned down as tolerated currently at 5 mcg/m. Propofol is currently off. He has a 0.9 at a KVO. He is receiving Vital HP tube feedings at 30 MLS per hour which is at goal. He is currently in a negative balance. His chest x-ray reveals small bilateral pleural effusions. He did spike a temperature of 102 last night. He is currently on vancomycin, Zosyn and Merrem based on positive sputum cultures including Haemophilus and Serratia marcescens. A PICC line is being replaced. Femoral catheter triple lumen tip is being sent for culture. He has had issues with atrial fibrillation with rapid ventricular response. His Cordarone is currently at 400 mg twice a day along with digoxin. A computed tomography scan of the chest revealed sternal dehiscence. The plan is for repair this week. Objective - Vital Signs Vital signs: Vital Signs Temp 100.8 F H 10/11/16 08:00 Pulse 84 10/11/16 11:20 Resp 13 10/11/16 11:00 BP 119/88 10/08/16 05:00 Pulse Ox 97 10/11/16 11:00 Intake & Output 10/10/16 10/11/16 10/11/16 18:59 06:59 18:59 Intake Total 1106.586 725.760 715.449 Output Total 1545 1025 730 Balance -438.414 -299.240 -14.551 Weight 119 kg Intake: IV 276 276 23 Pressure Bag 36 36 3 Sodium Chloride 0.9% 1, 240 240 20 000 ml @ 20 mls/hr IV . Q24H [facility] Rx#:[id number] Intake, IV Titration 680.586 449.760 602.449 Amount ACETAMINOPHEN IV (For NPO 200 100 ) 1,000 mg In Empty Bag 1 bag @ 400 mls/hr IVPB ONCE [facility] Rx#:[id number] Furosemide 250 mg In 184.833 Sodium Chloride 0.9% 225 ml @ 5 MG/HR 5 mls/hr IVPB .Q24H [facility] Rx#: [id number] Meropenem 1 gm In Sodium 100 100 100 Chloride 0.9% 100 ml @ 200 mls/hr IVPB Q12HR [facility] Rx#:[id number] Norepinephrin 16 mg-0.9% 250 107.110 Ns Pmx 16 mg In 250 ml @ Titrate IV .Q0M [facility] Rx#: [id number] Piperacillin-Tazobactam 3 62.5 87.5 12.5 .375 gm In Dextrose/Water 1 50ml.bag @ 12.5 mls/hr IVPB Q8H [facility] Rx#: [id number] Propofol 1,000 mg In 32.839 Empty Bag 1 bag @ Titrate IV .Q0M [facility] Rx#: [id number] Propofol 500 mg In Empty 83.253 62.260 Bag 1 bag @ Titrate IV . Q0M [facility] Rx#:[id number] Vancomycin 1,750 mg In 250 Sodium Chloride 0.9% 250 ml @ 125 mls/hr IVPB Q24H [facility] Rx#:[id number] Tube Feeding 150 60 Other 30 Output: Urine 1545 1025 730 Other: Voiding Method Indwelling Catheter Indwelling Catheter Indwelling Catheter # Bowel Movements 1 ABP, PAP, CO, CI - Last Documented Arterial Blood Pressure 110/54 - Exam GENERAL EXAM: Intubated, sedated. HEAD: Normocephalic. EYES: A she reaction of pupils, equal size. NOSE: Clear with pink turbinates. THROAT: Oral endotracheal and gastric tube secured in place. No erythema or exudates. NECK: No masses, no JVD. CHEST: Sternal dehiscence per computed tomography scan LUNGS: Equal air entry with scattered rhonchi. Crackles in the posterior bases. CVS: S1 and S2 normal with no audible murmurs, irregular rhythm. ABDOMEN: Soft. Extremities: There is trace peripheral edema. No clubbing, no cyanosis. Peripheral pulses are intact. - Labs CBC & Chem 7: 10/11/16 06:45 10/11/16 06:45 Labs: Abnormal Lab Results - Last 24 Hours (Table) 10/10/16 10/10/16 10/10/16 Range/Units 12:13 17:34 18:30 WBC (3.8-10.6) k/uL RBC (4.30-5.90) m/uL Hgb (13.0-17.5) gm/dL Hct (39.0-53.0) % RDW (11.5-15.5) % Neutrophils # (1.3-7.7) k/uL Monocytes # (0-1.0) k/uL PT (9.0-12.0) sec ABG pO2 (83-108) mmHg ABG HCO3 (21-25) mmol/L ABG Total CO2 (19-24) mmol/L Sodium (137-145) mmol/L Potassium 3.4 L (3.5-5.1) mmol/L Chloride (98-107) mmol/L BUN (9-20) mg/dL Creatinine (0.66-1.25) mg/dL Glucose (74-99) mg/dL POC Glucose (mg/dL) 190 H 172 H (75-99) mg/dL Calcium (8.4-10.2) mg/dL Ionized Calcium Guille (4.5-5.3) mg/dL Magnesium (1.6-2.3) mg/dL Total Bilirubin (0.2-1.3) mg/dL Total Protein (6.3-8.2) g/dL Albumin (3.5-5.0) g/dL 10/11/16 10/11/16 10/11/16 Range/Units 03:12 06:45 06:45 WBC 22.4 H (3.8-10.6) k/uL RBC 3.30 L (4.30-5.90) m/uL Hgb 10.1 L (13.0-17.5) gm/dL Hct 31.5 L (39.0-53.0) % RDW 18.0 H (11.5-15.5) % Neutrophils # 19.5 H (1.3-7.7) k/uL Monocytes # 1.4 H (0-1.0) k/uL PT (9.0-12.0) sec ABG pO2 (83-108) mmHg ABG HCO3 (21-25) mmol/L ABG Total CO2 (19-24) mmol/L Sodium 150 H (137-145) mmol/L Potassium (3.5-5.1) mmol/L Chloride 109 H (98-107) mmol/L BUN 56 H (9-20) mg/dL Creatinine 1.80 H (0.66-1.25) mg/dL Glucose 165 H (74-99) mg/dL POC Glucose (mg/dL) 214 H (75-99) mg/dL Calcium 7.0 L (8.4-10.2) mg/dL Ionized Calcium Guille 4.0 L (4.5-5.3) mg/dL Magnesium 2.5 H (1.6-2.3) mg/dL Total Bilirubin 1.5 H (0.2-1.3) mg/dL Total Protein 5.9 L (6.3-8.2) g/dL Albumin 2.7 L (3.5-5.0) g/dL 10/11/16 10/11/16 10/11/16 Range/Units 06:45 07:48 07:53 WBC (3.8-10.6) k/uL RBC (4.30-5.90) m/uL Hgb (13.0-17.5) gm/dL Hct (39.0-53.0) % RDW (11.5-15.5) % Neutrophils # (1.3-7.7) k/uL Monocytes # (0-1.0) k/uL PT 14.3 H (9.0-12.0) sec ABG pO2 78 L (83-108) mmHg ABG HCO3 29 H (21-25) mmol/L ABG Total CO2 30 H (19-24) mmol/L Sodium (137-145) mmol/L Potassium (3.5-5.1) mmol/L Chloride (98-107) mmol/L BUN (9-20) mg/dL Creatinine (0.66-1.25) mg/dL Glucose (74-99) mg/dL POC Glucose (mg/dL) 167 H (75-99) mg/dL Calcium (8.4-10.2) mg/dL Ionized Calcium Guille (4.5-5.3) mg/dL Magnesium (1.6-2.3) mg/dL Total Bilirubin (0.2-1.3) mg/dL Total Protein (6.3-8.2) g/dL Albumin (3.5-5.0) g/dL Microbiology - Last 24 Hours (Table) 10/06/16 21:00 Gram Stain - Final Sputum Sputum Culture - Final Haemophilus influenzae Serratia marcescens Assessment and Plan Plan: Impression: 1 acute hypoxic respiratory failure requiring intubation and mechanical ventilation secondary to cardiogenic pulmonary edema however Possibility of sepsis and noncardiogenic pulmonary edema is in the differential, but again felt to be less likely. However the patient will be empirically covered with antibiotics. Sputum cultures are positive for Haemophilus influenza, however the patient is on appropriate antibiotics coverage and will cover Haemophilus influenza and Serratia marcescens utilizing Zosyn and meropenem The leukocytosis upon presentation is a bit concerning., But that seems to be improving and his WBC count is much better today. And Dr. Ramos will be notified about the cultures from the sputum. 2 status post mitral valve repair and aortic valve replacement as well as mediastinal node biopsy in the last 10 days. 3 acute renal failure, most likely secondary to poor perfusion, especially with the fact that the patient is noted to drop his blood pressure significantly upon coughing and this was witnessed while in the ICU. I believe the patient must have developed acute kidney injury, acute tubular necrosis. This seems to be improving steadily since admission and obviously the patient seems to be perfusing his kidneys much better now that he was upon presentation. 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 5 bilateral pleural effusions, most likely effusions of congestive heart failure , I plan to treat with diuretics rather than thoracentesis at this point, especially with INR being elevated. If the effusion gets any larger, may have to drain with ultrasound guided thoracentesis. 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 7 multiple comorbidities including hypercholesterolemia, hypertension, hypothyroidism, obesity, osteoarthritis, thyroid cancer with previous surgery and radiation, history of rheumatic fever, and history of moderate pulmonary hypertension. Plan: The patient was seen and evaluated by Dr. Armando. His chest x-ray, ABGs and labs were reviewed. As the patient will be returned to the OR this week for repair of sternal dehiscence we'll continue the patient on the mechanical ventilator. His is at the bedside and understands the plan. In the interim, we'll continue with his current medications. We will continue to follow and make further recommendations based on his clinical status. Critical care time 35 minutes. Time with Patient: Greater than 30
[2016-10-11 11:54] LABS: Glucose,Whole Blood 199 mg/dL (75-99)
[2016-10-11 16:06] LABS: Glucose,Whole Blood 229 mg/dL (75-99)
[2016-10-11] MEDS: SODIUM CHLORIDE 0.9% 1,000 ML IV SCH (16:07)
--- NOTE | 2016-10-11 16:41 | P.PN ---
Subjective Principal diagnosis: Status post bypass surgery, respiratory failure, pulmonary edema This 71-year-old gentleman with history of ruptured chordae tendineae, mitral regurgitation and moderate aortic regurgitation who underwent mitral valve repair and also it could placement along with the maze procedure. Patient went home in relatively stable condition but is admitted to the hospital with respiratory failure. Patient had bilateral pleural effusion and possible CHF. Noncardiac pulmonary was also considered. Patient is is also being treated with antibiotics. Patient is seems to be little more stable. His heart rate is better controlled. His a lesser dose of Levophed. Patient is anticoagulated. He does have some sternal dehiscence. Once patient is stable, patient is being constricted for a muscle flap before extubation. Overall his clinical status is guarded. He also had some positive sputum cultures. Blood cultures are being obtained. Objective - Vital Signs Vital signs: Vital Signs Temp 97.8 F 10/11/16 16:00 Pulse 93 10/11/16 16:00 Resp 14 10/11/16 16:00 BP 119/88 10/08/16 05:00 Pulse Ox 98 10/11/16 16:00 Intake & Output 10/10/16 10/11/16 10/11/16 18:59 06:59 18:59 Intake Total 1106.586 939.948 6215.013 Output Total 1545 1025 1550 Balance -438.414 -299.240 -180.987 Weight 119 kg Intake: IV 276 276 43 Pressure Bag 36 36 3 Sodium Chloride 0.9% 1, 240 240 40 000 ml @ 20 mls/hr IV . Q24H [facility] Rx#:[id number] Intake, IV Titration 680.586 449.760 696.013 Amount ACETAMINOPHEN IV (For NPO 200 100 ) 1,000 mg In Empty Bag 1 bag @ 400 mls/hr IVPB ONCE [facility] Rx#:[id number] Furosemide 250 mg In 184.833 Sodium Chloride 0.9% 225 ml @ 5 MG/HR 5 mls/hr IVPB .Q24H [facility] Rx#: [id number] Meropenem 1 gm In Sodium 100 100 100 Chloride 0.9% 100 ml @ 200 mls/hr IVPB Q12HR [facility] Rx#:[id number] Norepinephrin 16 mg-0.9% 250 140.674 Ns Pmx 16 mg In 250 ml @ Titrate IV .Q0M [facility] Rx#: [id number] Piperacillin-Tazobactam 3 62.5 87.5 12.5 .375 gm In Dextrose/Water 1 50ml.bag @ 12.5 mls/hr IVPB Q8H [facility] Rx#: [id number] Propofol 1,000 mg In 32.839 Empty Bag 1 bag @ Titrate IV .Q0M [facility] Rx#: [id number] Propofol 500 mg In Empty 83.253 62.260 Bag 1 bag @ Titrate IV . Q0M [facility] Rx#:[id number] Sodium Chloride 0.9% 1, 60 000 ml @ 20 mls/hr IV . Q24H [facility] Rx#:[id number] Vancomycin 1,750 mg In 250 Sodium Chloride 0.9% 250 ml @ 125 mls/hr IVPB Q24H [facility] Rx#:[id number] Tube Feeding 150 360 Other 270 Output: Urine 1545 1025 1550 Other: Voiding Method Indwelling Catheter Indwelling Catheter Indwelling Catheter # Bowel Movements 1 ABP, PAP, CO, CI - Last Documented Arterial Blood Pressure 111/53 - Labs CBC & Chem 7: 10/11/16 06:45 10/11/16 06:45 Labs: Abnormal Lab Results - Last 24 Hours (Table) 10/10/16 10/10/16 10/11/16 Range/Units 17:34 18:30 03:12 WBC (3.8-10.6) k/uL RBC (4.30-5.90) m/uL Hgb (13.0-17.5) gm/dL Hct (39.0-53.0) % RDW (11.5-15.5) % Neutrophils # (1.3-7.7) k/uL Monocytes # (0-1.0) k/uL PT (9.0-12.0) sec ABG pO2 (83-108) mmHg ABG HCO3 (21-25) mmol/L ABG Total CO2 (19-24) mmol/L Sodium (137-145) mmol/L Potassium 3.4 L (3.5-5.1) mmol/L Chloride (98-107) mmol/L BUN (9-20) mg/dL Creatinine (0.66-1.25) mg/dL Glucose (74-99) mg/dL POC Glucose (mg/dL) 172 H 214 H (75-99) mg/dL Calcium (8.4-10.2) mg/dL Ionized Calcium Guille (4.5-5.3) mg/dL Magnesium (1.6-2.3) mg/dL Total Bilirubin (0.2-1.3) mg/dL Total Protein (6.3-8.2) g/dL Albumin (3.5-5.0) g/dL 10/11/16 10/11/16 10/11/16 Range/Units 06:45 06:45 06:45 WBC 22.4 H (3.8-10.6) k/uL RBC 3.30 L (4.30-5.90) m/uL Hgb 10.1 L (13.0-17.5) gm/dL Hct 31.5 L (39.0-53.0) % RDW 18.0 H (11.5-15.5) % Neutrophils # 19.5 H (1.3-7.7) k/uL Monocytes # 1.4 H (0-1.0) k/uL PT 14.3 H (9.0-12.0) sec ABG pO2 (83-108) mmHg ABG HCO3 (21-25) mmol/L ABG Total CO2 (19-24) mmol/L Sodium 150 H (137-145) mmol/L Potassium (3.5-5.1) mmol/L Chloride 109 H (98-107) mmol/L BUN 56 H (9-20) mg/dL Creatinine 1.80 H (0.66-1.25) mg/dL Glucose 165 H (74-99) mg/dL POC Glucose (mg/dL) (75-99) mg/dL Calcium 7.0 L (8.4-10.2) mg/dL Ionized Calcium Guille 4.0 L (4.5-5.3) mg/dL Magnesium 2.5 H (1.6-2.3) mg/dL Total Bilirubin 1.5 H (0.2-1.3) mg/dL Total Protein 5.9 L (6.3-8.2) g/dL Albumin 2.7 L (3.5-5.0) g/dL 10/11/16 10/11/16 10/11/16 Range/Units 07:48 07:53 11:52 WBC (3.8-10.6) k/uL RBC (4.30-5.90) m/uL Hgb (13.0-17.5) gm/dL Hct (39.0-53.0) % RDW (11.5-15.5) % Neutrophils # (1.3-7.7) k/uL Monocytes # (0-1.0) k/uL PT (9.0-12.0) sec ABG pO2 78 L (83-108) mmHg ABG HCO3 29 H (21-25) mmol/L ABG Total CO2 30 H (19-24) mmol/L Sodium (137-145) mmol/L Potassium (3.5-5.1) mmol/L Chloride (98-107) mmol/L BUN (9-20) mg/dL Creatinine (0.66-1.25) mg/dL Glucose (74-99) mg/dL POC Glucose (mg/dL) 167 H 199 H (75-99) mg/dL Calcium (8.4-10.2) mg/dL Ionized Calcium Guille (4.5-5.3) mg/dL Magnesium (1.6-2.3) mg/dL Total Bilirubin (0.2-1.3) mg/dL Total Protein (6.3-8.2) g/dL Albumin (3.5-5.0) g/dL 10/11/16 Range/Units 16:04 WBC (3.8-10.6) k/uL RBC (4.30-5.90) m/uL Hgb (13.0-17.5) gm/dL Hct (39.0-53.0) % RDW (11.5-15.5) % Neutrophils # (1.3-7.7) k/uL Monocytes # (0-1.0) k/uL PT (9.0-12.0) sec ABG pO2 (83-108) mmHg ABG HCO3 (21-25) mmol/L ABG Total CO2 (19-24) mmol/L Sodium (137-145) mmol/L Potassium (3.5-5.1) mmol/L Chloride (98-107) mmol/L BUN (9-20) mg/dL Creatinine (0.66-1.25) mg/dL Glucose (74-99) mg/dL POC Glucose (mg/dL) 229 H (75-99) mg/dL Calcium (8.4-10.2) mg/dL Ionized Calcium Guille (4.5-5.3) mg/dL Magnesium (1.6-2.3) mg/dL Total Bilirubin (0.2-1.3) mg/dL Total Protein (6.3-8.2) g/dL Albumin (3.5-5.0) g/dL Microbiology - Last 24 Hours (Table) 10/11/16 11:47 Catheter Tip Culture - Preliminary Catheter Tip Assessment and Plan (1) Acute renal failure Status: Acute (2) Acute respiratory failure Status: Acute (3) Status post aortic valve replacement Status: Acute (4) Status post mitral valve repair Status: Acute (5) Atrial fibrillation with RVR Status: Acute (6) Congestive heart failure due to valvular disease Status: Acute Plan: Continue current supportive care and antibiotics. Follow the recommendation of cardiac surgeons regarding a sternal dehiscence. His heart rate is better controlled. We'll continue current medical therapy. Prognosis is guarded
[2016-10-11] MEDS: PROPOFOL 500 MG in EMPTY BAG 1 BAG IV SCH (17:42)
[2016-10-11 21:04] LABS: Glucose,Whole Blood 194 mg/dL (75-99)
[2016-10-12] MEDS: PROPOFOL 500 MG in EMPTY BAG 1 BAG IV SCH ×8 (01:00→21:36)
[2016-10-12] MEDS: INSULIN LISPRO (humaLOG) 300 UNIT/3 ML VIAL SQ SCH ×7 (01:04→23:37)
[2016-10-12 01:05] LABS: Glucose,Whole Blood 175 mg/dL (75-99)
[2016-10-12] MEDS: HYDROcodone/APAP 5-325MG 1 EACH TAB PO PRN (03:17)
[2016-10-12] MEDS: LEVALBUTEROL NEB (CONC) 1.25 MG/0.5 ML AMP INHALATION SCH ×6 (03:30→23:28)
[2016-10-12] MEDS: IPRATROPIUM 0.5 MG/2.5 ML NEBU INHALATION SCH ×6 (03:30→23:28)
[2016-10-12] MEDS: PIPERACILLIN-TAZOBACTAM 3.375 GM in DEXTROSE/WATER 1 50ML.BAG IVPB SCH ×3 (04:33→20:24)
[2016-10-12 04:34] LABS: Glucose,Whole Blood 143 mg/dL (75-99)
[2016-10-12 04:35] LABS: Anisocytosis Slight; Basophils % (A) 0 %; CH 29.7; CHCM 30.5; Eosinophils % (A) 0 %; HCT 29.3 % (39.0-53.0); HDW 3.82; HGB 8.7 gm/dL (13.0-17.5); Hypochromasia Marked; INR 1.4 (<1.1); Luc # (Auto) 0.19; Luc % (Auto) 1; Lymphocytes # (A) 0.6 k/uL (1.0-4.8); Lymphocytes % (A) 3 %; MCHC 29.6 g/dL (31.0-37.0); MCV 98.2 fL (80.0-100.0); Macrocytosis Slight; Mean Platelet Volume 8.5; Monocytes # (A) 0.7 k/uL (0-1.0); Monocytes % (A) 4 %; Neutrophils % (A) 92 %; Poikilocytosis Slight; Prothrombin Time 13.5 sec (9.0-12.0); RBC 2.99 m/uL (4.30-5.90); RDW 18.2 % (11.5-15.5); WBC 19.5 k/uL (3.8-10.6); WBC (Perox) 20.22
[2016-10-12 04:46] LABS: Calcium 6.9 mg/dL (8.4-10.2); Magnesium 2.7 mg/dL (1.6-2.3); Phosphorous 3.8 mg/dL (2.5-4.5); Potassium 4.1 mmol/L (3.5-5.1); Total Bilirubin 0.9 mg/dL (0.2-1.3); Total Protein 5.3 g/dL (6.3-8.2)
[2016-10-12 05:43] LABS: ABG Base Excess 5.1 mmol/L; ABG HCO3 29 mmol/L (21-25); ABG PCO2 41 mmHg (35-45); ABG PH 7.46 (7.35-7.45); ABG PO2 74 mmHg (83-108); ABG TCO2 30 mmol/L (19-24)
[2016-10-12] MEDS: AMIODARONE 200 MG TAB PO SCH ×2 (06:29→18:03)
[2016-10-12] MEDS: LEVOTHYROXINE 75 MCG TAB PO SCH (06:30)
--- NOTE | 2016-10-12 07:23 | CONS ---
DATE OF CONSULTATION: 10/11/2016 Reason for followup is a new fever. INTERVAL HISTORY: The patient is a 71-year-old male who has been admitted to the hospital on 10/06/2016. The patient presented with an increasing shortness of breath. The patient noted to have evidence of dependent respiratory failure. Patient has been treated with a combination of Zosyn and vancomycin. The vancomycin was discontinued as the sputum was showing haemophilus influenzae and Serratia marcescens. Over the last 24 hours the patient was found having spiked fever, started on the 10/10 of 101.4 degrees Fahrenheit and has been all night for which the patient has blood cultures done. The patient did have a right groin femoral line has been discontinued after a PICC line was placed and vancomycin was re-added. I was asked to see the patient for further evaluation in view of the absence of Dr Ramos. The patient is currently intubated on the vent during my evaluation this morning, still requires some pressor support and was unable to provide any history. REVIEW OF SYSTEMS: Could not reliably obtained and the positive has been mentioned in HPI. Past medical and surgical history reviewed. Medications reviewed. On examination, the blood pressure is 113/57 with a pulse of 83, temperature 98.7, T-max is 101, 102. He is 97% on 50% FiO2. General description is an elderly male, lying in bed in no distress. HEENT examination shows pallor, no scleral icterus. The patient is orally intubated. LUNGS: Unlabored breathing, some decreased breath sound at the base, no wheeze. HEART: S1, S2. Regular rate and rhythm. Midline incision currently healed. ABDOMEN: Soft, no tenderness. EXTREMITIES: No edema of feet. SKIN: No rash or mass palpable. NEUROLOGICAL: The patient is currently sedated on the vent. LABS: Hemoglobin is 10.1, white count 22.4 with a BUN of 56, creatinine 1.80. Sputum with Haemophilus influenzae and serratia marcescens and serratia marcescens sensitive to Zosyn. DIAGNOSTIC IMPRESSION AND PLAN: Patient with sepsis in the patient who did have a fever of 102 degrees Fahrenheit, did have an elevated white count, source could be likely a combination of pneumonia and possible line, though that has been adequately covered with the Zosyn. concern of sepsis in a patient who did have a groin central line has been discontinued, catheter has be sent for the culture. Patient also shows instability of his sternal wound with dehiscence and some fluid collection there. A sternal osteomyelitis cannot be entirely excluded. PLAN: 1. At this time is to continue with the vancomycin, pharmacy to dose and Zosyn , meropenem can be discontinued. 2. Await the Vascular Surgery evaluation Would recommend obtaining a deep sternal culture to make sure there is no evidence of any sternal osteo. 3. Will follow up on his clinical condition and cultures to further adjust the medication if needed. Thank you for this consultation. Will follow this patient along with you. WILSON
[2016-10-12 07:51] LABS: Glucose,Whole Blood 152 mg/dL (75-99)
[2016-10-12] MEDS: NOREPINEPHRIN 16 MG-0.9%NS PMX 16 MG/250 ML ML IV SCH (07:57)
--- NOTE | 2016-10-12 07:58 | XR ---
EXAMINATION TYPE: XR chest 1V portable DATE OF EXAM: 10/12/2016 6:39 AM COMPARISON: 10/11/2016 HISTORY: SOB, Follow Up FINDINGS: Indwelling tubes and catheters are unchanged. No change in bibasilar opacities. Stable appearance of the cardio-mediastinal structures at this time. Pleural effusion unchanged. IMPRESSION: 1. Stable portable chest. Clinical correlation and follow up until resolution is recommended.
[2016-10-12] MEDS ORDERED: HEPARIN SODIUM,PORCINE 5,000 UNIT/ML 1 ML VIAL SQ SCH (08:00)
[2016-10-12] MEDS: DOCUSATE ORAL SOLN 100 MG/10 ML CUP PO SCH ×2 (08:00→20:22)
[2016-10-12] MEDS: CHLORHEXIDINE GLUCONATE 15 ML CUP MUCOUS MEM SCH ×2 (08:00→20:23)
[2016-10-12] MEDS: ASPIRIN 81 MG CHEW PO SCH (08:00)
[2016-10-12] MEDS: METOPROLOL TARTRATE 25 MG TAB PO SCH ×2 (08:01→20:22)
[2016-10-12] MEDS: PANTOPRAZOLE 40 MG/10 ML VIAL IVP SCH (08:01)
[2016-10-12] MEDS ORDERED: NOREPINEPHRINE 16 MG in DEXTROSE 5% IN WATER 250 ML IV SCH ×2 (08:29)
[2016-10-12] MEDS ORDERED: DEXTROSE 5% IVPB SCH ×2 (09:00)
[2016-10-12] MEDS ORDERED: VANCOMYCIN 1,750 MG in SODIUM CHLORIDE 0.9% 250 ML IVPB SCH (09:00)
[2016-10-12] MEDS ORDERED: VANCOMYCIN IVPB SCH ×2 (09:00)
[2016-10-12] MEDS ORDERED: WATER IVPB SCH ×2 (09:00)
--- NOTE | 2016-10-12 09:06 | P.PN ---
<Charisse Croft - Last Filed: 10/12/16 08:53> Subjective Principal diagnosis: Acute hypoxic respiratory failure requiring mechanical ventilation, present on admission. Sputum culture positive for Haemophilus influenza, serratia marcescens. Currently on Zosyn, vanco. Merropenem added. Infectious disease following. CAT scan of the chest on 10/09/16 demonstrated dehiscence of sternal wires. POD #15 aortic valve replacement, mitral valve repair, modified Frederick maze, mediastinal lymph node biopsy. Remains sedated on mechanical ventilation. Trial wean yesterday went well, need to keep intubated until surgical intervention for sternal wire dehiscence. Fever resolved, no afebrile. Pt still in AFib but heart rate controlled 80-90s. Lasix gtt stopped yesterday. Levo/propofol continues to be weaned down. PICC line placed yesterday. Objective - Vital Signs Vital signs: Vital Signs Temp 98.6 F 10/12/16 08:00 Pulse 83 10/12/16 08:33 Resp 12 10/12/16 08:00 BP 119/88 10/08/16 05:00 Pulse Ox 95 10/12/16 08:00 Intake & Output 10/11/16 10/12/16 10/12/16 18:59 06:59 18:59 Intake Total 4071.046 9218.794 323 Output Total 1755 860 160 Balance -192.862 247.794 163 Weight 116.3 kg Intake: IV 63 24 23 Pressure Bag 3 24 3 Sodium Chloride 0.9% 1, 60 20 000 ml @ 20 mls/hr IV . Q24H [facility] Rx#:[id number] Intake, IV Titration 749.138 573.794 270 Amount ACETAMINOPHEN IV (For NPO 100 ) 1,000 mg In Empty Bag 1 bag @ 400 mls/hr IVPB ONCE [facility] Rx#:[id number] Meropenem 1 gm In Sodium 100 100 Chloride 0.9% 100 ml @ 200 mls/hr IVPB Q12HR [facility] Rx#:[id number] Norepinephrin 16 mg-0.9% 173.799 76.201 Ns Pmx 16 mg In 250 ml @ Titrate IV .Q0M [facility] Rx#: [id number] Piperacillin-Tazobactam 3 12.5 50 .375 gm In Dextrose/Water 1 50ml.bag @ 12.5 mls/hr IVPB Q8H [facility] Rx#: [id number] Propofol 1,000 mg In 32.839 Empty Bag 1 bag @ Titrate IV .Q0M [facility] Rx#: [id number] Propofol 500 mg In Empty 127.593 Bag 1 bag @ Titrate IV . Q0M [facility] Rx#:[id number] Sodium Chloride 0.9% 1, 80 220 20 000 ml @ 20 mls/hr IV . Q24H [facility] Rx#:[id number] Vancomycin 1,750 mg In 250 250 Sodium Chloride 0.9% 250 ml @ 125 mls/hr IVPB Q24H [facility] Rx#:[id number] Tube Feeding 420 420 30 Other 330 90 Output: Urine 1755 860 160 Other: Voiding Method Indwelling Catheter Indwelling Catheter # Bowel Movements 1 1 ABP, PAP, CO, CI - Last Documented Arterial Blood Pressure 112/44 - Constitutional General appearance: Present: cooperative, no acute distress, obese - Respiratory Details: Lung sounds diminished bilaterally. Resp even/non-labored, remains on mechanical ventilation. Current settings TV 500, FiO2 50%, RR 14, PEEP 8. - Cardiovascular Details: S1/S2 present. Irreg rate/rhythm, controlled Afib on telemetry. Trace summer lower extremity edema. Heart hugger/teds/scds in place. - Gastrointestinal Gastrointestinal Comment(s): Abd soft/NT/ND/round. Active BS x 4 quad. Vital TF @ 30 ml/hr through OGT. - Genitourinary Genitourinary Comment(s): Duong present draining clear, yellow urine. Output 35-45 ml/hr. - Integumentary Integumentary Comment(s): Ant chest incision well approximated without any redness. - Musculoskeletal Musculoskeletal: Present: strength equal bilaterally - Psychiatric Psychiatric Comment(s): wakes up off sedation, follows commands. - Allied health notes Allied health notes reviewed: nursing - Labs CBC & Chem 7: 10/12/16 04:10 10/12/16 04:10 Labs: Abnormal Lab Results - Last 24 Hours (Table) 10/11/16 10/11/16 10/11/16 Range/Units 11:52 16:04 21:02 WBC (3.8-10.6) k/uL RBC (4.30-5.90) m/uL Hgb (13.0-17.5) gm/dL Hct (39.0-53.0) % MCHC (31.0-37.0) g/dL RDW (11.5-15.5) % Neutrophils # (1.3-7.7) k/uL Lymphocytes # (1.0-4.8) k/uL PT (9.0-12.0) sec ABG pH (7.35-7.45) ABG pO2 (83-108) mmHg ABG HCO3 (21-25) mmol/L ABG Total CO2 (19-24) mmol/L Sodium (137-145) mmol/L Chloride (98-107) mmol/L Carbon Dioxide (22-30) mmol/L BUN (9-20) mg/dL Creatinine (0.66-1.25) mg/dL Glucose (74-99) mg/dL POC Glucose (mg/dL) 199 H 229 H 194 H (75-99) mg/dL Calcium (8.4-10.2) mg/dL Ionized Calcium Guille (4.5-5.3) mg/dL Magnesium (1.6-2.3) mg/dL Total Protein (6.3-8.2) g/dL Albumin (3.5-5.0) g/dL 10/12/16 10/12/16 10/12/16 Range/Units 01:04 04:10 04:10 WBC 19.5 H (3.8-10.6) k/uL RBC 2.99 L (4.30-5.90) m/uL Hgb 8.7 L (13.0-17.5) gm/dL Hct 29.3 L (39.0-53.0) % MCHC 29.6 L (31.0-37.0) g/dL RDW 18.2 H (11.5-15.5) % Neutrophils # 18.0 H (1.3-7.7) k/uL Lymphocytes # 0.6 L (1.0-4.8) k/uL PT (9.0-12.0) sec ABG pH (7.35-7.45) ABG pO2 (83-108) mmHg ABG HCO3 (21-25) mmol/L ABG Total CO2 (19-24) mmol/L Sodium 151 H (137-145) mmol/L Chloride 110 H (98-107) mmol/L Carbon Dioxide 33 H (22-30) mmol/L BUN 64 H (9-20) mg/dL Creatinine 1.50 H (0.66-1.25) mg/dL Glucose 134 H (74-99) mg/dL POC Glucose (mg/dL) 175 H (75-99) mg/dL Calcium 6.9 L (8.4-10.2) mg/dL Ionized Calcium Guille (4.5-5.3) mg/dL Magnesium 2.7 H (1.6-2.3) mg/dL Total Protein 5.3 L (6.3-8.2) g/dL Albumin 2.5 L (3.5-5.0) g/dL 10/12/16 10/12/16 10/12/16 Range/Units 04:10 04:31 05:36 WBC (3.8-10.6) k/uL RBC (4.30-5.90) m/uL Hgb (13.0-17.5) gm/dL Hct (39.0-53.0) % MCHC (31.0-37.0) g/dL RDW (11.5-15.5) % Neutrophils # (1.3-7.7) k/uL Lymphocytes # (1.0-4.8) k/uL PT 13.5 H (9.0-12.0) sec ABG pH 7.46 H (7.35-7.45) ABG pO2 74 L (83-108) mmHg ABG HCO3 29 H (21-25) mmol/L ABG Total CO2 30 H (19-24) mmol/L Sodium (137-145) mmol/L Chloride (98-107) mmol/L Carbon Dioxide (22-30) mmol/L BUN (9-20) mg/dL Creatinine (0.66-1.25) mg/dL Glucose (74-99) mg/dL POC Glucose (mg/dL) 143 H (75-99) mg/dL Calcium (8.4-10.2) mg/dL Ionized Calcium Guille (4.5-5.3) mg/dL Magnesium (1.6-2.3) mg/dL Total Protein (6.3-8.2) g/dL Albumin (3.5-5.0) g/dL 10/12/16 10/12/16 Range/Units 07:48 07:50 WBC (3.8-10.6) k/uL RBC (4.30-5.90) m/uL Hgb (13.0-17.5) gm/dL Hct (39.0-53.0) % MCHC (31.0-37.0) g/dL RDW (11.5-15.5) % Neutrophils # (1.3-7.7) k/uL Lymphocytes # (1.0-4.8) k/uL PT (9.0-12.0) sec ABG pH (7.35-7.45) ABG pO2 (83-108) mmHg ABG HCO3 (21-25) mmol/L ABG Total CO2 (19-24) mmol/L Sodium (137-145) mmol/L Chloride (98-107) mmol/L Carbon Dioxide (22-30) mmol/L BUN (9-20) mg/dL Creatinine (0.66-1.25) mg/dL Glucose (74-99) mg/dL POC Glucose (mg/dL) 152 H (75-99) mg/dL Calcium (8.4-10.2) mg/dL Ionized Calcium Guille 4.1 L (4.5-5.3) mg/dL Magnesium (1.6-2.3) mg/dL Total Protein (6.3-8.2) g/dL Albumin (3.5-5.0) g/dL Microbiology - Last 24 Hours (Table) 10/11/16 06:40 Blood Culture - Preliminary Blood No Growth after 24 hours 10/11/16 11:47 Catheter Tip Culture - Preliminary Catheter Tip - Imaging and Cardiology Chest x-ray: report reviewed, image reviewed Assessment and Plan (1) Status post aortic valve replacement Status: Acute (2) Status post mitral valve repair Status: Acute (3) Acute renal failure Status: Acute (4) Neutrophilic leukocytosis Status: Acute (5) Atrial fibrillation with RVR Status: Acute (6) Histoplasmosis Status: Acute (7) Hypercholesterolemia Status: Acute (8) Hypertension Status: Acute (9) Hypothyroidism (acquired) Status: Acute (10) Obesity Status: Acute (11) Paroxysmal atrial fibrillation Status: Acute Plan: 1. Continue aspirin, Lopressor, digoxin, heparin 2. Continue amiodarone for A. fib prophylaxis. 3. Na level remains elevated. Discussed with pharmacy to place all IVPB in D5W instead of NS. KVO NS changed to LR. 4. Continue antibiotics per infectious disease. 5. Wean levo as tolerated 6. Ventilator management per pulmonology, wean O2 as tolerated. No plans for extubation until sternum stability established. 7. No coumadin at this time in anticipation of surgical revision of sternal wires. 8. Replace calcium. 9. Daily labs, x-rays 10. Strict I/O, daily weights. 11. More recommendations as patient progresses. Time with Patient: Greater than 30 <Brant Crawford - Last Filed: 10/12/16 16:40> Objective - Vital Signs Vital signs: Vital Signs Temp 98.2 F 10/12/16 16:00 Pulse 86 10/12/16 16:00 Resp 14 10/12/16 16:00 BP 119/88 10/08/16 05:00 Pulse Ox 95 10/12/16 16:00 Intake & Output 10/11/16 10/12/16 10/12/16 18:59 06:59 18:59 Intake Total 1385.833 7915.794 982.994 Output Total 1755 860 780 Balance -192.862 247.794 202.994 Weight 116.3 kg 116.3 kg Intake: IV 63 24 57 Pressure Bag 3 24 27 Sodium Chloride 0.9% 1, 60 30 000 ml @ 20 mls/hr IV . Q24H [facility] Rx#:[id number] Intake, IV Titration 749.138 573.794 555.994 Amount ACETAMINOPHEN IV (For NPO 100 ) 1,000 mg In Empty Bag 1 bag @ 400 mls/hr IVPB ONCE [facility] Rx#:[id number] Calcium Gluconate 1,000 100 mg In Dextrose 5% in Water 100 ml @ 100 mls/hr IVPB ONCE ONE Rx#: [id number] Lactated Ringers 1,000 ml 40 @ 20 mls/hr IV .Q24H [facility] Rx#:[id number] Meropenem 1 gm In Sodium 100 100 Chloride 0.9% 100 ml @ 200 mls/hr IVPB Q12HR [facility] Rx#:[id number] Norepinephrin 16 mg-0.9% 173.799 76.201 Ns Pmx 16 mg In 250 ml @ Titrate IV .Q0M [facility] Rx#: [id number] Piperacillin-Tazobactam 3 12.5 50 50 .375 gm In Dextrose/Water 1 50ml.bag @ 12.5 mls/hr IVPB Q8H [facility] Rx#: [id number] Propofol 1,000 mg In 32.839 Empty Bag 1 bag @ Titrate IV .Q0M [facility] Rx#: [id number] Propofol 500 mg In Empty 127.593 95.994 Bag 1 bag @ Titrate IV . Q0M [facility] Rx#:[id number] Sodium Chloride 0.9% 1, 80 220 20 000 ml @ 20 mls/hr IV . Q24H [facility] Rx#:[id number] Vancomycin 1,750 mg In 250 250 Sodium Chloride 0.9% 250 ml @ 125 mls/hr IVPB Q24H [facility] Rx#:[id number] Tube Feeding 420 420 330 Other 330 90 40 Output: Urine 1755 860 780 Other: Voiding Method Indwelling Catheter Indwelling Catheter Indwelling Catheter # Bowel Movements 1 1 1 ABP, PAP, CO, CI - Last Documented Arterial Blood Pressure 127/52 - Labs CBC & Chem 7: 10/12/16 04:10 10/12/16 04:10 Labs: Abnormal Lab Results - Last 24 Hours (Table) 10/11/16 10/12/16 10/12/16 Range/Units 21:02 01:04 04:10 WBC 19.5 H (3.8-10.6) k/uL RBC 2.99 L (4.30-5.90) m/uL Hgb 8.7 L (13.0-17.5) gm/dL Hct 29.3 L (39.0-53.0) % MCHC 29.6 L (31.0-37.0) g/dL RDW 18.2 H (11.5-15.5) % Neutrophils # 18.0 H (1.3-7.7) k/uL Lymphocytes # 0.6 L (1.0-4.8) k/uL PT (9.0-12.0) sec ABG pH (7.35-7.45) ABG pO2 (83-108) mmHg ABG HCO3 (21-25) mmol/L ABG Total CO2 (19-24) mmol/L Sodium (137-145) mmol/L Chloride (98-107) mmol/L Carbon Dioxide (22-30) mmol/L BUN (9-20) mg/dL Creatinine (0.66-1.25) mg/dL Glucose (74-99) mg/dL POC Glucose (mg/dL) 194 H 175 H (75-99) mg/dL Calcium (8.4-10.2) mg/dL Ionized Calcium Guille (4.5-5.3) mg/dL Magnesium (1.6-2.3) mg/dL Total Protein (6.3-8.2) g/dL Albumin (3.5-5.0) g/dL 10/12/16 10/12/16 10/12/16 Range/Units 04:10 04:10 04:31 WBC (3.8-10.6) k/uL RBC (4.30-5.90) m/uL Hgb (13.0-17.5) gm/dL Hct (39.0-53.0) % MCHC (31.0-37.0) g/dL RDW (11.5-15.5) % Neutrophils # (1.3-7.7) k/uL Lymphocytes # (1.0-4.8) k/uL PT 13.5 H (9.0-12.0) sec ABG pH (7.35-7.45) ABG pO2 (83-108) mmHg ABG HCO3 (21-25) mmol/L ABG Total CO2 (19-24) mmol/L Sodium 151 H (137-145) mmol/L Chloride 110 H (98-107) mmol/L Carbon Dioxide 33 H (22-30) mmol/L BUN 64 H (9-20) mg/dL Creatinine 1.50 H (0.66-1.25) mg/dL Glucose 134 H (74-99) mg/dL POC Glucose (mg/dL) 143 H (75-99) mg/dL Calcium 6.9 L (8.4-10.2) mg/dL Ionized Calcium Guille (4.5-5.3) mg/dL Magnesium 2.7 H (1.6-2.3) mg/dL Total Protein 5.3 L (6.3-8.2) g/dL Albumin 2.5 L (3.5-5.0) g/dL 10/12/16 10/12/16 10/12/16 Range/Units 05:36 07:48 07:50 WBC (3.8-10.6) k/uL RBC (4.30-5.90) m/uL Hgb (13.0-17.5) gm/dL Hct (39.0-53.0) % MCHC (31.0-37.0) g/dL RDW (11.5-15.5) % Neutrophils # (1.3-7.7) k/uL Lymphocytes # (1.0-4.8) k/uL PT (9.0-12.0) sec ABG pH 7.46 H (7.35-7.45) ABG pO2 74 L (83-108) mmHg ABG HCO3 29 H (21-25) mmol/L ABG Total CO2 30 H (19-24) mmol/L Sodium (137-145) mmol/L Chloride (98-107) mmol/L Carbon Dioxide (22-30) mmol/L BUN (9-20) mg/dL Creatinine (0.66-1.25) mg/dL Glucose (74-99) mg/dL POC Glucose (mg/dL) 152 H (75-99) mg/dL Calcium (8.4-10.2) mg/dL Ionized Calcium Guille 4.1 L (4.5-5.3) mg/dL Magnesium (1.6-2.3) mg/dL Total Protein (6.3-8.2) g/dL Albumin (3.5-5.0) g/dL 10/12/16 10/12/16 Range/Units 12:27 15:57 WBC (3.8-10.6) k/uL RBC (4.30-5.90) m/uL Hgb (13.0-17.5) gm/dL Hct (39.0-53.0) % MCHC (31.0-37.0) g/dL RDW (11.5-15.5) % Neutrophils # (1.3-7.7) k/uL Lymphocytes # (1.0-4.8) k/uL PT (9.0-12.0) sec ABG pH (7.35-7.45) ABG pO2 (83-108) mmHg ABG HCO3 (21-25) mmol/L ABG Total CO2 (19-24) mmol/L Sodium (137-145) mmol/L Chloride (98-107) mmol/L Carbon Dioxide (22-30) mmol/L BUN (9-20) mg/dL Creatinine (0.66-1.25) mg/dL Glucose (74-99) mg/dL POC Glucose (mg/dL) 154 H 135 H (75-99) mg/dL Calcium (8.4-10.2) mg/dL Ionized Calcium Guille (4.5-5.3) mg/dL Magnesium (1.6-2.3) mg/dL Total Protein (6.3-8.2) g/dL Albumin (3.5-5.0) g/dL Microbiology - Last 24 Hours (Table) 10/11/16 11:47 Catheter Tip Culture - Preliminary Catheter Tip 10/11/16 06:40 Blood Culture - Preliminary Blood No Growth after 24 hours Assessment and Plan Plan: The patient was seen and examined. Agree with the above assessment and plan. He remains sedated and intubated this time. He is currently on 8 of PEEP and 50 % FiO2. His chest x-ray still has some pulmonary edema. His Lasix drip was discontinued yesterday after a bump in his creatinine. His creatinine today has again started to trend down. He is currently receiving tube feeds. He is currently on levophed which is being weaned as tolerated. He remains in rate controlled atrial fibrillation despite Lopressor, digoxin, and amiodarone. INR today is down to 1.4. We will initiate intravenous heparin secondary to his atrial fibrillation. His sternal wound is still intact though the underlying sternum is unstable. He is currently on antibiotics secondary to H. influenzae and Serratia in his sputum. He will undergo revision of his sternal wound later this week by Dr. Riggs.
[2016-10-12] MEDS ORDERED: CALCIUM GLUCONATE IVPB ONE ×2 (09:08)
[2016-10-12] MEDS ORDERED: DEXTROSE 5% IVPB ONE ×2 (09:08)
[2016-10-12] MEDS ORDERED: WATER IVPB ONE ×2 (09:08)
--- NOTE | 2016-10-12 09:30 | P.PN ---
Subjective Progress note dated 10/12/2016 71-year-old male who remains intubated in the ICU. He has a sternal dehiscence and surgeries plan sometime this week. He is doing reasonably well. Yesterday he was wide awake. Today he is back on DIP or van. The plan is to keep him on the ventilator until he has his sternal repair. Current vent settings are the assist control mode rate of 14 tidal volume of 500 FiO2 50% and a PEEP of 8. Blood gases show a PaO2 of 70 for a pCO2 41 and a pH 7.46. His pressor, levophed, is on hold, he's on .9 IV at KVO Diprovan at 25 mics per kilogram per minute and vital high protein at 30 with a goal of 30. Currently he is in atrial fibrillation. Objective - Vital Signs Vital signs: Vital Signs Temp 98.6 F 10/12/16 08:00 Pulse 83 10/12/16 08:33 Resp 12 10/12/16 08:00 BP 119/88 10/08/16 05:00 Pulse Ox 95 10/12/16 08:00 Intake & Output 10/11/16 10/12/16 10/12/16 18:59 06:59 18:59 Intake Total 8654.245 8195.794 323 Output Total 1755 860 160 Balance -192.862 247.794 163 Weight 116.3 kg Intake: IV 63 24 23 Pressure Bag 3 24 3 Sodium Chloride 0.9% 1, 60 20 000 ml @ 20 mls/hr IV . Q24H [facility] Rx#:[id number] Intake, IV Titration 749.138 573.794 270 Amount ACETAMINOPHEN IV (For NPO 100 ) 1,000 mg In Empty Bag 1 bag @ 400 mls/hr IVPB ONCE STA Rx#:[id number] Meropenem 1 gm In Sodium 100 100 Chloride 0.9% 100 ml @ 200 mls/hr IVPB Q12HR [facility] Rx#:[id number] Norepinephrin 16 mg-0.9% 173.799 76.201 Ns Pmx 16 mg In 250 ml @ Titrate IV .Q0M STEVAN Rx#: [id number] Piperacillin-Tazobactam 3 12.5 50 .375 gm In Dextrose/Water 1 50ml.bag @ 12.5 mls/hr IVPB Q8H [facility] Rx#: [id number] Propofol 1,000 mg In 32.839 Empty Bag 1 bag @ Titrate IV .Q0M STEVAN Rx#: [id number] Propofol 500 mg In Empty 127.593 Bag 1 bag @ Titrate IV . Q0M [facility]EVAN Rx#:[id number] Sodium Chloride 0.9% 1, 80 220 20 000 ml @ 20 mls/hr IV . Q24H [facility] Rx#:[id number] Vancomycin 1,750 mg In 250 250 Sodium Chloride 0.9% 250 ml @ 125 mls/hr IVPB Q24H [facility] Rx#:[id number] Tube Feeding 420 420 30 Other 330 90 Output: Urine 1755 860 160 Other: Voiding Method Indwelling Catheter Indwelling Catheter # Bowel Movements 1 1 ABP, PAP, CO, CI - Last Documented Arterial Blood Pressure 112/44 - Exam No acute distress, currently ventilated. Currently sedated. HEENT examination is unremarkable. He's got an oral endotracheal tube and NG tube. Mucous membranes are moist. Neck supple. Full range of motion. No adenopathy. Neck veins are flat. Cardiovascular examination reveals regular rhythm rate. Heart rate about 100. He is in atrial fibrillation. No murmur. Pulmonary examination reveals a few scattered rhonchi. No wheezes. A few crackles. Abdomen soft bowel sounds are heard Extremities are intact. Skin without rash or lesions. - Labs CBC & Chem 7: 10/12/16 04:10 10/12/16 04:10 Labs: Abnormal Lab Results - Last 24 Hours (Table) 10/11/16 10/11/16 10/11/16 Range/Units 11:52 16:04 21:02 WBC (3.8-10.6) k/uL RBC (4.30-5.90) m/uL Hgb (13.0-17.5) gm/dL Hct (39.0-53.0) % MCHC (31.0-37.0) g/dL RDW (11.5-15.5) % Neutrophils # (1.3-7.7) k/uL Lymphocytes # (1.0-4.8) k/uL PT (9.0-12.0) sec ABG pH (7.35-7.45) ABG pO2 (83-108) mmHg ABG HCO3 (21-25) mmol/L ABG Total CO2 (19-24) mmol/L Sodium (137-145) mmol/L Chloride (98-107) mmol/L Carbon Dioxide (22-30) mmol/L BUN (9-20) mg/dL Creatinine (0.66-1.25) mg/dL Glucose (74-99) mg/dL POC Glucose (mg/dL) 199 H 229 H 194 H (75-99) mg/dL Calcium (8.4-10.2) mg/dL Ionized Calcium Guille (4.5-5.3) mg/dL Magnesium (1.6-2.3) mg/dL Total Protein (6.3-8.2) g/dL Albumin (3.5-5.0) g/dL 10/12/16 10/12/16 10/12/16 Range/Units 01:04 04:10 04:10 WBC 19.5 H (3.8-10.6) k/uL RBC 2.99 L (4.30-5.90) m/uL Hgb 8.7 L (13.0-17.5) gm/dL Hct 29.3 L (39.0-53.0) % MCHC 29.6 L (31.0-37.0) g/dL RDW 18.2 H (11.5-15.5) % Neutrophils # 18.0 H (1.3-7.7) k/uL Lymphocytes # 0.6 L (1.0-4.8) k/uL PT (9.0-12.0) sec ABG pH (7.35-7.45) ABG pO2 (83-108) mmHg ABG HCO3 (21-25) mmol/L ABG Total CO2 (19-24) mmol/L Sodium 151 H (137-145) mmol/L Chloride 110 H (98-107) mmol/L Carbon Dioxide 33 H (22-30) mmol/L BUN 64 H (9-20) mg/dL Creatinine 1.50 H (0.66-1.25) mg/dL Glucose 134 H (74-99) mg/dL POC Glucose (mg/dL) 175 H (75-99) mg/dL Calcium 6.9 L (8.4-10.2) mg/dL Ionized Calcium Guille (4.5-5.3) mg/dL Magnesium 2.7 H (1.6-2.3) mg/dL Total Protein 5.3 L (6.3-8.2) g/dL Albumin 2.5 L (3.5-5.0) g/dL 10/12/16 10/12/16 10/12/16 Range/Units 04:10 04:31 05:36 WBC (3.8-10.6) k/uL RBC (4.30-5.90) m/uL Hgb (13.0-17.5) gm/dL Hct (39.0-53.0) % MCHC (31.0-37.0) g/dL RDW (11.5-15.5) % Neutrophils # (1.3-7.7) k/uL Lymphocytes # (1.0-4.8) k/uL PT 13.5 H (9.0-12.0) sec ABG pH 7.46 H (7.35-7.45) ABG pO2 74 L (83-108) mmHg ABG HCO3 29 H (21-25) mmol/L ABG Total CO2 30 H (19-24) mmol/L Sodium (137-145) mmol/L Chloride (98-107) mmol/L Carbon Dioxide (22-30) mmol/L BUN (9-20) mg/dL Creatinine (0.66-1.25) mg/dL Glucose (74-99) mg/dL POC Glucose (mg/dL) 143 H (75-99) mg/dL Calcium (8.4-10.2) mg/dL Ionized Calcium Guille (4.5-5.3) mg/dL Magnesium (1.6-2.3) mg/dL Total Protein (6.3-8.2) g/dL Albumin (3.5-5.0) g/dL 10/12/16 10/12/16 Range/Units 07:48 07:50 WBC (3.8-10.6) k/uL RBC (4.30-5.90) m/uL Hgb (13.0-17.5) gm/dL Hct (39.0-53.0) % MCHC (31.0-37.0) g/dL RDW (11.5-15.5) % Neutrophils # (1.3-7.7) k/uL Lymphocytes # (1.0-4.8) k/uL PT (9.0-12.0) sec ABG pH (7.35-7.45) ABG pO2 (83-108) mmHg ABG HCO3 (21-25) mmol/L ABG Total CO2 (19-24) mmol/L Sodium (137-145) mmol/L Chloride (98-107) mmol/L Carbon Dioxide (22-30) mmol/L BUN (9-20) mg/dL Creatinine (0.66-1.25) mg/dL Glucose (74-99) mg/dL POC Glucose (mg/dL) 152 H (75-99) mg/dL Calcium (8.4-10.2) mg/dL Ionized Calcium Guille 4.1 L (4.5-5.3) mg/dL Magnesium (1.6-2.3) mg/dL Total Protein (6.3-8.2) g/dL Albumin (3.5-5.0) g/dL Microbiology - Last 24 Hours (Table) 10/11/16 11:47 Catheter Tip Culture - Preliminary Catheter Tip 10/11/16 06:40 Blood Culture - Preliminary Blood No Growth after 24 hours Assessment and Plan (1) Acute pulmonary edema Status: Acute (2) Acute respiratory failure Status: Acute (3) Neutrophilic leukocytosis Status: Acute (4) Status post mitral valve repair Status: Acute (5) Atrial fibrillation with RVR Status: Acute (6) Congestive heart failure due to valvular disease Status: Acute (7) Hypercholesterolemia Status: Acute (8) Hypertension Status: Acute (9) Hypothyroidism (acquired) Status: Acute (10) Paroxysmal atrial fibrillation Status: Acute Plan: Plan dated 10/12/2016 The patient remain on mechanical ventilator. His pressor is currently on hold. He remains on sedation. He is getting nourishment. His vent settings are appropriate. He isn't he is he has a very mild metabolic alkalosis. Medications labs and x-rays are reviewed. Additional recommendations suggestions are forthcoming. His prognosis is guarded. He is a very complex patient with a number of medical problems. We'll continue to follow closely. No additional recommendations are made at this time. Time with Patient: Greater than 30
[2016-10-12] MEDS: LACTATED RINGERS 1,000 ML IV SCH (09:37)
[2016-10-12] MEDS: DIGOXIN 250 MCG/ML 2 ML AMP IVP SCH (10:01)
--- NOTE | 2016-10-12 10:10 | CDI ---
In responding to this query, please exercise your independent professional judgment. The [facility] Coding Staff and Clinical Documentation Specialists appreciate your assistance in clarifying documentation, maintaining compliance with coding guidelines, accurately documenting patients condition and capturing severity of illness. The fact that a question is asked does not imply that any particular answer is desired or expected. Communication forms are a method of clarifying documentation and are not made part of the Legal Health Record. Thank you in advance for your clarification. Last Revision, August 2015 Janeth Perez [address] [facility] [address] Documentation Clarification Form Date: 10/12/2016 9:55:00 AM From: Gerson Sawyer, RN, BSN, CDI Admit Date: 10/06/2016 11:17:00 AM Patient Name: Jn Stevenson Visit Number: [id number] Dr. Dayami Guadarrama: "CHF due to valvular disease" is documented in multiple cardiology and pulmonary progress notes. History/Risk Factors:71 yo male with recent history of aortic valve replacement and mitral valve repair. Additional medical history includes atrial fibrillation, rheumatic fever and moderate pulmonary hypertension. +hx smoking. Clinical Indicators: VS/Pulse OX: 153/96, 141, 24, 98.3 and 90% 4L (on admission) BNP: 6520 Echocardiogram Results: LVEF 50-55% (systolic function is low-normal), LA severely dilated, Afib, normally functioning bioprosthetic valve, mild mitral/ tricuspid regurgitation. Chest X Ray: findings c/w CHF exacerbation redemonstrated as there is cardiomegaly w/mild-mod central vascular congestion and small to moderate sized b/l pleural effusions Treatment: Lasix gtt, mechanical ventilation, Amio gtt, Lopressor, Digoxin Consults: cardiology In your professional opinion, can you please clarify the acuity and type of CHF if known? Acute Chronic Acute on Chronic AND Systolic Diastolic Systolic and Diastolic Cor Pulmonale (Right Sided HF w/ Pulmonary HTN) Unable to determine Other, please specify Please document in your progress notes and discharge summary in order to capture severity of illness and risk of mortality. Include clinical findings that support your diagnosis. FYI: Press F11 to launch patient chart. Place X here if this finding has no clinical significance, is not applicable or if you are not able to provide any additional documentation. MTDD
--- NOTE | 2016-10-12 10:26 | CDI ---
In responding to this query, please exercise your independent professional judgment. The [facility] Coding Staff and Clinical Documentation Specialists appreciate your assistance in clarifying documentation, maintaining compliance with coding guidelines, accurately documenting patients condition and capturing severity of illness. The fact that a question is asked does not imply that any particular answer is desired or expected. Communication forms are a method of clarifying documentation and are not made part of the Legal Health Record. Thank you in advance for your clarification. Last Revision, August 2015 Janeth Perez [address] [facility] [place] [address] Documentation Clarification Form Date: 10/12/2016 10:15:00 AM From: Gerson Sawyer, RN, BSN, CDI Admit Date: 10/06/2016 11:17:00 AM Patient Name: Jn Stevenson Visit Number: [id number] Dr. Jae Riggs/ Charisse Croft BOTTOM BRUSHER: "Sternal wire dehiscence" is documented in your progress notes starting on . History/Risk Factors: 71 yo male with recent history of aortic valve replacement and mitral valve repair. Clinical Indicators: CXR (10/09) sternal wires show separation compatible with sternal wound dehiscence CT chest (10/09) sternal dehiscence, there is pericardial fluid, b/l pleural effusions and associated atelectasis, substernal fluid is also noted. Treatment: the patient will need surgical intervention for sternal wire dehiscence on this admission, possibly this week Consults: pulmonary, cardiology, ID In order to accurately reflect this patients severity of illness, please clarify if the post-operative diagnosis of sternal wire dehiscence is: An expected post-procedural or post-surgical condition Integral to the procedure Inherent to the procedure An unexpected post-procedural or post-surgical condition, related to the patients underlying medical comorbidities Other, please specify Unable to determine Please document in your progress notes and discharge summary in order to capture severity of illness and risk of mortality. Include clinical findings that support your diagnosis. FYI: Press F11 to launch patient chart Place X here if this finding has no clinical significance, is not applicable or if you are not able to provide any additional documentation. WILSON
[2016-10-12 12:30] LABS: Glucose,Whole Blood 154 mg/dL (75-99)
[2016-10-12 15:59] LABS: Glucose,Whole Blood 135 mg/dL (75-99)
[2016-10-12] MEDS ORDERED: HEPARIN SODIUM,PORCINE 5,000 UNIT/ML 1 ML VIAL IV ONE (16:14)
[2016-10-12] MEDS: HEPARIN SODIUM,PORCINE/D5W PMX 25,000 UNIT in DEXTROSE/WATER 1 500ML.BAG IV SCH (16:55)
[2016-10-12 20:17] LABS: Glucose,Whole Blood 134 mg/dL (75-99)
[2016-10-12] MEDS: SENNOSIDES 8.6 MG TAB PO SCH (20:22)
--- NOTE | 2016-10-12 20:40 | P.PN ---
Subjective Principal diagnosis: Status post open-heart surgery, respiratory failure, atrial fibrillation and CHF This is 71-year-old gentleman who recently underwent aortic valve replacement, mitral valve repair and Maze procedure is admitted to the hospital with increasing shortness of breath and respiratory failure. Patient needed intubation. Patient also had atrial fibrillation with rapid ventricular response. Patient's sputum grew H. influenzae and Serratia patient is on multiple antibiotics. He seemed to be clinically more stable. His heart rate is well controlled. Patient may need surgical revision of the sternal wires. Meanwhile patient will continue current medical therapy. His Coumadin is being held Objective - Vital Signs Vital signs: Vital Signs Temp 98.2 F 10/12/16 16:00 Pulse 103 H 10/12/16 20:06 Resp 17 10/12/16 19:00 BP 119/88 10/08/16 05:00 Pulse Ox 91 L 10/12/16 19:00 Intake & Output 10/12/16 10/12/16 10/13/16 06:59 18:59 06:59 Intake Total 1401.673 3931.994 23 Output Total 860 880 150 Balance 247.794 198.994 -127 Weight 116.3 kg 116.3 kg Intake: IV 24 63 3 Pressure Bag 24 33 3 Sodium Chloride 0.9% 1, 30 000 ml @ 20 mls/hr IV . Q24H [facility]EVAN Rx#:[id number] Intake, IV Titration 573.794 645.994 20 Amount Calcium Gluconate 1,000 100 mg In Dextrose 5% in Water 100 ml @ 100 mls/hr IVPB ONCE ONE Rx#: [id number] Lactated Ringers 1,000 ml 80 20 @ 20 mls/hr IV .Q24H STEVAN Rx#:[id number] Meropenem 1 gm In Sodium 100 Chloride 0.9% 100 ml @ 200 mls/hr IVPB Q12HR [facility]EVAN Rx#:[id number] Norepinephrin 16 mg-0.9% 76.201 Ns Pmx 16 mg In 250 ml @ Titrate IV .Q0M STEVAN Rx#: [id number] Piperacillin-Tazobactam 3 50 50 .375 gm In Dextrose/Water 1 50ml.bag @ 12.5 mls/hr IVPB Q8H STEVAN Rx#: [id number] Propofol 500 mg In Empty 127.593 145.994 Bag 1 bag @ Titrate IV . Q0M STEVAN Rx#:[id number] Sodium Chloride 0.9% 1, 220 20 000 ml @ 20 mls/hr IV . Q24H STEVAN Rx#:[id number] Vancomycin 1,750 mg In 250 Sodium Chloride 0.9% 250 ml @ 125 mls/hr IVPB Q24H STEVAN Rx#:[id number] Tube Feeding 420 330 Other 90 40 Output: Urine 860 880 150 Other: Voiding Method Indwelling Catheter Indwelling Catheter # Bowel Movements 1 1 ABP, PAP, CO, CI - Last Documented Arterial Blood Pressure 99/42 - Exam GENERAL EXAM: Patient sedated HEENT: Normocephalic. Normal reaction of pupils, equal size, normal range of extraocular motion. No erythema or exudates in the throat. NECK: No masses, no nuchal rigidity. CHEST: No chest wall deformity. LUNGS: [Diminished breath sounds, scattered rhonchi HEART: Irregular heart rhythm ABDOMEN: No hepatosplenomegaly, normal bowel sounds, no guarding or rigidity. SKIN: No rashes CENTRAL NERVOUS SYSTEM: Sedated EXTREMITIES: No cyanosis, clubbing or edema. - Labs CBC & Chem 7: 10/12/16 04:10 10/12/16 04:10 Labs: Abnormal Lab Results - Last 24 Hours (Table) 10/11/16 10/12/16 10/12/16 Range/Units 21:02 01:04 04:10 WBC 19.5 H (3.8-10.6) k/uL RBC 2.99 L (4.30-5.90) m/uL Hgb 8.7 L (13.0-17.5) gm/dL Hct 29.3 L (39.0-53.0) % MCHC 29.6 L (31.0-37.0) g/dL RDW 18.2 H (11.5-15.5) % Neutrophils # 18.0 H (1.3-7.7) k/uL Lymphocytes # 0.6 L (1.0-4.8) k/uL PT (9.0-12.0) sec ABG pH (7.35-7.45) ABG pO2 (83-108) mmHg ABG HCO3 (21-25) mmol/L ABG Total CO2 (19-24) mmol/L Sodium (137-145) mmol/L Chloride (98-107) mmol/L Carbon Dioxide (22-30) mmol/L BUN (9-20) mg/dL Creatinine (0.66-1.25) mg/dL Glucose (74-99) mg/dL POC Glucose (mg/dL) 194 H 175 H (75-99) mg/dL Calcium (8.4-10.2) mg/dL Ionized Calcium Guille (4.5-5.3) mg/dL Magnesium (1.6-2.3) mg/dL Total Protein (6.3-8.2) g/dL Albumin (3.5-5.0) g/dL 10/12/16 10/12/16 10/12/16 Range/Units 04:10 04:10 04:31 WBC (3.8-10.6) k/uL RBC (4.30-5.90) m/uL Hgb (13.0-17.5) gm/dL Hct (39.0-53.0) % MCHC (31.0-37.0) g/dL RDW (11.5-15.5) % Neutrophils # (1.3-7.7) k/uL Lymphocytes # (1.0-4.8) k/uL PT 13.5 H (9.0-12.0) sec ABG pH (7.35-7.45) ABG pO2 (83-108) mmHg ABG HCO3 (21-25) mmol/L ABG Total CO2 (19-24) mmol/L Sodium 151 H (137-145) mmol/L Chloride 110 H (98-107) mmol/L Carbon Dioxide 33 H (22-30) mmol/L BUN 64 H (9-20) mg/dL Creatinine 1.50 H (0.66-1.25) mg/dL Glucose 134 H (74-99) mg/dL POC Glucose (mg/dL) 143 H (75-99) mg/dL Calcium 6.9 L (8.4-10.2) mg/dL Ionized Calcium Guille (4.5-5.3) mg/dL Magnesium 2.7 H (1.6-2.3) mg/dL Total Protein 5.3 L (6.3-8.2) g/dL Albumin 2.5 L (3.5-5.0) g/dL 10/12/16 10/12/16 10/12/16 Range/Units 05:36 07:48 07:50 WBC (3.8-10.6) k/uL RBC (4.30-5.90) m/uL Hgb (13.0-17.5) gm/dL Hct (39.0-53.0) % MCHC (31.0-37.0) g/dL RDW (11.5-15.5) % Neutrophils # (1.3-7.7) k/uL Lymphocytes # (1.0-4.8) k/uL PT (9.0-12.0) sec ABG pH 7.46 H (7.35-7.45) ABG pO2 74 L (83-108) mmHg ABG HCO3 29 H (21-25) mmol/L ABG Total CO2 30 H (19-24) mmol/L Sodium (137-145) mmol/L Chloride (98-107) mmol/L Carbon Dioxide (22-30) mmol/L BUN (9-20) mg/dL Creatinine (0.66-1.25) mg/dL Glucose (74-99) mg/dL POC Glucose (mg/dL) 152 H (75-99) mg/dL Calcium (8.4-10.2) mg/dL Ionized Calcium Guille 4.1 L (4.5-5.3) mg/dL Magnesium (1.6-2.3) mg/dL Total Protein (6.3-8.2) g/dL Albumin (3.5-5.0) g/dL 10/12/16 10/12/16 10/12/16 Range/Units 12:27 15:57 20:15 WBC (3.8-10.6) k/uL RBC (4.30-5.90) m/uL Hgb (13.0-17.5) gm/dL Hct (39.0-53.0) % MCHC (31.0-37.0) g/dL RDW (11.5-15.5) % Neutrophils # (1.3-7.7) k/uL Lymphocytes # (1.0-4.8) k/uL PT (9.0-12.0) sec ABG pH (7.35-7.45) ABG pO2 (83-108) mmHg ABG HCO3 (21-25) mmol/L ABG Total CO2 (19-24) mmol/L Sodium (137-145) mmol/L Chloride (98-107) mmol/L Carbon Dioxide (22-30) mmol/L BUN (9-20) mg/dL Creatinine (0.66-1.25) mg/dL Glucose (74-99) mg/dL POC Glucose (mg/dL) 154 H 135 H 134 H (75-99) mg/dL Calcium (8.4-10.2) mg/dL Ionized Calcium Guille (4.5-5.3) mg/dL Magnesium (1.6-2.3) mg/dL Total Protein (6.3-8.2) g/dL Albumin (3.5-5.0) g/dL Microbiology - Last 24 Hours (Table) 10/11/16 11:47 Catheter Tip Culture - Preliminary Catheter Tip 10/11/16 06:40 Blood Culture - Preliminary Blood No Growth after 24 hours Assessment and Plan (1) Acute renal failure Status: Acute (2) Acute respiratory failure Status: Acute (3) Status post aortic valve replacement Status: Acute (4) Status post mitral valve repair Status: Acute (5) Atrial fibrillation with RVR Status: Acute (6) Congestive heart failure due to valvular disease Status: Acute Plan: His Coumadin is being held in anticipation of surgical procedure. We will continue his Lopressor digoxin and heparin along with aspirin and antibiotics to be continued .prognosis is guarded.
--- NOTE | 2016-10-12 21:25 | PN ---
DATE OF SERVICE: 10/12/2016 REASON FOR FOLLOWUP: Pneumonia and sepsis. INTERVAL HISTORY: The patient overall feels better and has improved. The patient is hemodynamically improved. The patient remains intubated on the vent with an FiO2 of 50%. Tolerating his tube feeding. No significant diarrhea. On examination, blood pressure 121/51 with a pulse of 97, temperature 98.2. He is 92% on 50% FiO2. General description is an elderly male lying in bed in no distress. RESPIRATORY SYSTEM: Unlabored breathing. Clear to auscultation anteriorly. HEART: S1, S2. Regular rate and rhythm. ABDOMEN: Soft. No tenderness. EXTREMITIES: No edema of the feet. LABS: Hemoglobin 8.7 with a white count of 19.5. BUN of 64, creatinine 1.50. Blood cultures obtained yesterday are so far negative. culture negative. DIAGNOSTIC IMPRESSION AND PLAN: Patient with sepsis with a source possible femoral line that has been discontinued versus sternal osteomyelitis. Awaiting surgical department and deep cultures. Patient fever responding to the addition of vancomycin. That will continue along with the Zosyn, which should cover his Haemophilus influenzae as well as serratia pneumonia. Continue supportive care. MTDBridget
[2016-10-12 23:32] LABS: Glucose,Whole Blood 144 mg/dL (75-99)
[2016-10-13] MEDS: PROPOFOL 500 MG in EMPTY BAG 1 BAG IV SCH ×7 (00:08→21:52)
[2016-10-13] MEDS: HEPARIN SODIUM,PORCINE 5,000 UNIT/ML 1 ML VIAL IV PRN ×2 (01:42→10:12)
[2016-10-13] MEDS: PIPERACILLIN-TAZOBACTAM 3.375 GM in DEXTROSE/WATER 1 50ML.BAG IVPB SCH ×3 (03:15→20:44)
[2016-10-13] MEDS: IPRATROPIUM 0.5 MG/2.5 ML NEBU INHALATION SCH ×6 (03:23→23:56)
[2016-10-13] MEDS: LEVALBUTEROL NEB (CONC) 1.25 MG/0.5 ML AMP INHALATION SCH ×6 (03:23→23:56)
[2016-10-13 03:58] LABS: Glucose,Whole Blood 130 mg/dL (75-99)
[2016-10-13 05:25] LABS: Anisocytosis Slight; Basophils % (A) 0 %; CH 29.7; CHCM 30.8; Eosinophils # (A) 0.1 k/uL (0-0.7); Eosinophils % (A) 1 %; HDW 4.05; HGB 8.8 gm/dL (13.0-17.5); Hypochromasia Marked; Luc # (Auto) 0.11; Luc % (Auto) 1; Lymphocytes # (A) 0.8 k/uL (1.0-4.8); Lymphocytes % (A) 7 %; MCH 30.6 pg (25.0-35.0); MCHC 31.5 g/dL (31.0-37.0); MCV 97.3 fL (80.0-100.0); Macrocytosis Slight; Mean Platelet Volume 8.2; Monocytes # (A) 0.5 k/uL (0-1.0); Monocytes % (A) 4 %; Neutrophils # (A) 9.9 k/uL (1.3-7.7); Neutrophils % (A) 87 %; Poikilocytosis Moderate; RBC 2.88 m/uL (4.30-5.90); RDW 18.4 % (11.5-15.5); WBC 11.4 k/uL (3.8-10.6); WBC (Perox) 11.47
[2016-10-13 06:03] LABS: Ionized Calcium 4.1 mg/dL (4.5-5.3)
[2016-10-13 06:05] LABS: ABG Base Excess 7.2 mmol/L; ABG HCO3 31 mmol/L (21-25); ABG PCO2 40 mmHg (35-45); ABG PO2 67 mmHg (83-108); ABG TCO2 32 mmol/L (19-24)
[2016-10-13] MEDS: AMIODARONE 200 MG TAB PO SCH ×2 (06:19→17:32)
[2016-10-13 06:26] LABS: ALT 41 U/L (21-72); AST 27 U/L (17-59); Alkaline Phosphatase 58 U/L (38-126); Anion Gap 8 mmol/L; Blood Urea Nitrogen 65 mg/dL (9-20); Calcium 7.4 mg/dL (8.4-10.2); Carbon Dioxide 32 mmol/L (22-30); Chloride 113 mmol/L (98-107); Glucose 130 mg/dL (74-99); Magnesium 2.9 mg/dL (1.6-2.3); Non-African American GFR(MDRD) 60 (>60 ml/min/1.73 sqM); Phosphorous 3.9 mg/dL (2.5-4.5); Potassium 3.8 mmol/L (3.5-5.1); Sodium 153 mmol/L (137-145); Total Bilirubin 0.9 mg/dL (0.2-1.3); Total Protein 5.3 g/dL (6.3-8.2)
[2016-10-13] MEDS ORDERED: POTASSIUM CHLORIDE ORAL LIQUID 40 MEQ/30 ML CUP NG-TUBE SCH ×2 (07:00→17:00)
[2016-10-13] MEDS: LEVOTHYROXINE 75 MCG TAB PO SCH (07:18)
[2016-10-13] MEDS: INSULIN LISPRO (humaLOG) 300 UNIT/3 ML VIAL SQ SCH ×5 (07:21→20:44)
[2016-10-13 07:23] LABS: INR 1.3 (<1.1); Prothrombin Time 13.2 sec (9.0-12.0)
--- NOTE | 2016-10-13 07:40 | XR ---
EXAMINATION TYPE: XR chest 1V portable DATE OF EXAM: 10/13/2016 7:09 AM CLINICAL HISTORY: Difficulty breathing progress study. Post open cardiac surgery. TECHNIQUE: Single AP portable semiupright view of the chest is obtained. COMPARISON: Chest x-ray from one day earlier FINDINGS: An endotracheal tube, left-sided PICC line, and orogastric tube are stable in position. St ernal wires and metallic cardiac valvular ring are redemonstrated. There is persistent cardiomegaly with bibasilar opacity felt to reflect small to moderate-sized bilat eral pleural effusions and associated bibasilar atelectasis and/or infiltrate slightly more prominent in left lung. No pneumothorax is seen bilaterally. Osseous structures are intact. IMPRESSION: Overall stable findings, suspect CHF exacerbation as there is cardiomegaly with central vascular congestion and small to moderate-sized bilateral pleural effusions with associated left gre ater than right bibasilar atelectasis and/or infiltrate all redemonstrated
[2016-10-13 07:57] LABS: Glucose,Whole Blood 158 mg/dL (75-99)
[2016-10-13] MEDS ORDERED: VANCOMYCIN TROUGH DUE 1 EACH MISC MISCELLANE ONE (08:00)
[2016-10-13 08:22] LABS: Glucose,Whole Blood 161 mg/dL (75-99)
[2016-10-13] MEDS: PANTOPRAZOLE 40 MG/10 ML VIAL IVP SCH (08:28)
[2016-10-13] MEDS: CHLORHEXIDINE GLUCONATE 15 ML CUP MUCOUS MEM SCH ×2 (08:29→20:45)
[2016-10-13] MEDS: LACTATED RINGERS 1,000 ML IV SCH (08:29)
[2016-10-13] MEDS: DIGOXIN 250 MCG/ML 2 ML AMP IVP SCH (08:31)
[2016-10-13] MEDS: ASPIRIN 81 MG CHEW PO SCH (08:31)
[2016-10-13] MEDS: METOPROLOL TARTRATE 25 MG TAB PO SCH ×3 (08:37→20:46)
[2016-10-13] MEDS: DOCUSATE ORAL SOLN 100 MG/10 ML CUP PO SCH ×3 (08:37→20:46)
[2016-10-13] MEDS ORDERED: DEXTROSE 5% IVPB SCH ×2 (09:00)
[2016-10-13] MEDS ORDERED: VANCOMYCIN IVPB SCH ×2 (09:00)
[2016-10-13] MEDS ORDERED: WATER IVPB SCH ×2 (09:00)
[2016-10-13] MEDS ORDERED: CALCIUM GLUCONATE IVPB ONE ×2 (09:56)
[2016-10-13] MEDS ORDERED: FUROSEMIDE 10 MG/ML 2 ML VIAL IV ONE (09:56)
[2016-10-13] MEDS ORDERED: DEXTROSE 5% IVPB ONE ×2 (09:56)
[2016-10-13] MEDS ORDERED: WATER IVPB ONE ×2 (09:56)
--- NOTE | 2016-10-13 10:31 | P.PN ---
Subjective Progress note dated 10/12/2016 71-year-old male who remains intubated in the ICU. He has a sternal dehiscence and surgeries plan sometime this week. He is doing reasonably well. Yesterday he was wide awake. Today he is back on DIP or van. The plan is to keep him on the ventilator until he has his sternal repair. Current vent settings are the assist control mode rate of 14 tidal volume of 500 FiO2 50% and a PEEP of 8. Blood gases show a PaO2 of 70 for a pCO2 41 and a pH 7.46. His pressor, levophed, is on hold, he's on .9 IV at KVO Diprovan at 25 mics per kilogram per minute and vital high protein at 30 with a goal of 30. Currently he is in atrial fibrillation. Progress note dated 10/13/2016 71-year-old male who remains intubated in the ICU. 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 He is doing reasonably well. The sternal repair will be done either on or Tuesday by Dr. Riggs. The patient currently is being sedated on propofol at 20 mics per kilogram per minute. He is on lactated Ringer's at KVO and heparin drip via weightbase protocol. The norepinephrine is currently on hold and he is receiving vital high protein at a rate of 30 with a goal of 30. His vent settings include the assist control mode rate of 14 Lyme 500 FiO2 50% PEEP of 8. Blood gases show a PaO2 of 67 a pCO2 40 and a pH is 7.50. This is consistent with a metabolic alkalosis. Objective - Vital Signs Vital signs: Vital Signs Temp 99.5 F 10/13/16 04:00 Pulse 83 10/13/16 08:31 Resp 10/13/16 07:00 BP 119/88 10/08/16 05:00 Pulse Ox 98 10/13/16 07:00 Intake & Output 10/12/16 10/13/16 10/13/16 18:59 06:59 18:59 Intake Total 1078.994 871.060 276.949 Output Total 880 1115 325 Balance 198.994 -243.940 -48.051 Weight 116.3 kg Intake: IV 63 69 12 Pressure Bag 33 69 12 Sodium Chloride 0.9% 1, 30 000 ml @ 20 mls/hr IV . Q24H [facility] Rx#:[id number] Intake, IV Titration 645.994 442.060 264.949 Amount Calcium Gluconate 1,000 100 mg In Dextrose 5% in Water 100 ml @ 100 mls/hr IVPB ONCE ONE Rx#: [id number] Heparin Sodium,Porcine/ 175.333 194.311 D5w Pmx 25,000 unit In Dextrose/Water 1 500ml. bag @ 8.6 UNITS/KG/HR 20 mls/hr IV .Q24H [facility] Rx#: [id number] Lactated Ringers 1,000 ml 80 20 20 @ 20 mls/hr IV .Q24H [facility] Rx#:[id number] Norepinephrine 16 mg In 51.912 0.638 Dextrose 5% in Water 250 ml @ Titrate IV .Q0M [facility] Rx#:[id number] Piperacillin-Tazobactam 3 50 .375 gm In Dextrose/Water 1 50ml.bag @ 12.5 mls/hr IVPB Q8H [facility] Rx#: [id number] Propofol 500 mg In Empty 145.994 194.815 50 Bag 1 bag @ Titrate IV . Q0M [facility] Rx#:[id number] Sodium Chloride 0.9% 1, 20 000 ml @ 20 mls/hr IV . Q24H [facility] Rx#:[id number] Vancomycin 1,750 mg In 250 Sodium Chloride 0.9% 250 ml @ 125 mls/hr IVPB Q24H [facility] Rx#:[id number] Tube Feeding 330 360 Other 40 Output: Urine 880 1115 325 Other: Voiding Method Indwelling Catheter Indwelling Catheter # Bowel Movements 1 1 ABP, PAP, CO, CI - Last Documented Arterial Blood Pressure 113/47 - Exam No acute distress, currently ventilated. Currently sedated. HEENT examination is unremarkable. He's got an oral endotracheal tube and NG tube. Mucous membranes are moist. Neck supple. Full range of motion. No adenopathy. Neck veins are flat. Cardiovascular examination reveals regular rhythm rate. Heart rate about 100. He is in atrial fibrillation. No murmur. Pulmonary examination reveals a few scattered rhonchi. No wheezes. A few crackles. Abdomen soft bowel sounds are heard Extremities are intact. Skin without rash or lesions. - Labs CBC & Chem 7: 10/13/16 05:14 04/19/17 05:14 Labs: Abnormal Lab Results - Last 24 Hours (Table) 10/12/16 10/12/16 10/12/16 Range/Units 12:27 15:57 20:15 WBC (3.8-10.6) k/uL RBC (4.30-5.90) m/uL Hgb (13.0-17.5) gm/dL Hct (39.0-53.0) % RDW (11.5-15.5) % Neutrophils # (1.3-7.7) k/uL Lymphocytes # (1.0-4.8) k/uL PT (9.0-12.0) sec APTT (22.0-30.0) sec ABG pH (7.35-7.45) ABG pO2 (83-108) mmHg ABG HCO3 (21-25) mmol/L ABG Total CO2 (19-24) mmol/L Sodium (137-145) mmol/L Chloride (98-107) mmol/L Carbon Dioxide (22-30) mmol/L BUN (9-20) mg/dL Glucose (74-99) mg/dL POC Glucose (mg/dL) 154 H 135 H 134 H (75-99) mg/dL Calcium (8.4-10.2) mg/dL Ionized Calcium Guille (4.5-5.3) mg/dL Magnesium (1.6-2.3) mg/dL Total Protein (6.3-8.2) g/dL Albumin (3.5-5.0) g/dL 10/12/16 10/12/16 10/13/16 Range/Units 23:25 23:30 03:56 WBC (3.8-10.6) k/uL RBC (4.30-5.90) m/uL Hgb (13.0-17.5) gm/dL Hct (39.0-53.0) % RDW (11.5-15.5) % Neutrophils # (1.3-7.7) k/uL Lymphocytes # (1.0-4.8) k/uL PT (9.0-12.0) sec APTT 30.3 H (22.0-30.0) sec ABG pH (7.35-7.45) ABG pO2 (83-108) mmHg ABG HCO3 (21-25) mmol/L ABG Total CO2 (19-24) mmol/L Sodium (137-145) mmol/L Chloride (98-107) mmol/L Carbon Dioxide (22-30) mmol/L BUN (9-20) mg/dL Glucose (74-99) mg/dL POC Glucose (mg/dL) 144 H 130 H (75-99) mg/dL Calcium (8.4-10.2) mg/dL Ionized Calcium Guille (4.5-5.3) mg/dL Magnesium (1.6-2.3) mg/dL Total Protein (6.3-8.2) g/dL Albumin (3.5-5.0) g/dL 10/13/16 10/13/16 10/13/16 Range/Units 05:14 05:14 05:14 WBC 11.4 H (3.8-10.6) k/uL RBC 2.88 L (4.30-5.90) m/uL Hgb 8.8 L (13.0-17.5) gm/dL Hct 28.0 L (39.0-53.0) % RDW 18.4 H (11.5-15.5) % Neutrophils # 9.9 H (1.3-7.7) k/uL Lymphocytes # 0.8 L (1.0-4.8) k/uL PT 13.2 H (9.0-12.0) sec APTT (22.0-30.0) sec ABG pH (7.35-7.45) ABG pO2 (83-108) mmHg ABG HCO3 (21-25) mmol/L ABG Total CO2 (19-24) mmol/L Sodium 153 H (137-145) mmol/L Chloride 113 H (98-107) mmol/L Carbon Dioxide 32 H (22-30) mmol/L BUN 65 H (9-20) mg/dL Glucose 130 H (74-99) mg/dL POC Glucose (mg/dL) (75-99) mg/dL Calcium 7.4 L (8.4-10.2) mg/dL Ionized Calcium Guille 4.1 L (4.5-5.3) mg/dL Magnesium 2.9 H (1.6-2.3) mg/dL Total Protein 5.3 L (6.3-8.2) g/dL Albumin 2.4 L (3.5-5.0) g/dL 10/13/16 10/13/16 10/13/16 Range/Units 05:22 07:54 08:19 WBC (3.8-10.6) k/uL RBC (4.30-5.90) m/uL Hgb (13.0-17.5) gm/dL Hct (39.0-53.0) % RDW (11.5-15.5) % Neutrophils # (1.3-7.7) k/uL Lymphocytes # (1.0-4.8) k/uL PT (9.0-12.0) sec APTT (22.0-30.0) sec ABG pH 7.50 H (7.35-7.45) ABG pO2 67 L (83-108) mmHg ABG HCO3 31 H (21-25) mmol/L ABG Total CO2 32 H (19-24) mmol/L Sodium (137-145) mmol/L Chloride (98-107) mmol/L Carbon Dioxide (22-30) mmol/L BUN (9-20) mg/dL Glucose (74-99) mg/dL POC Glucose (mg/dL) 158 H 161 H (75-99) mg/dL Calcium (8.4-10.2) mg/dL Ionized Calcium Guille (4.5-5.3) mg/dL Magnesium (1.6-2.3) mg/dL Total Protein (6.3-8.2) g/dL Albumin (3.5-5.0) g/dL 10/13/16 Range/Units 08:23 WBC (3.8-10.6) k/uL RBC (4.30-5.90) m/uL Hgb (13.0-17.5) gm/dL Hct (39.0-53.0) % RDW (11.5-15.5) % Neutrophils # (1.3-7.7) k/uL Lymphocytes # (1.0-4.8) k/uL PT (9.0-12.0) sec APTT 44.2 H (22.0-30.0) sec ABG pH (7.35-7.45) ABG pO2 (83-108) mmHg ABG HCO3 (21-25) mmol/L ABG Total CO2 (19-24) mmol/L Sodium (137-145) mmol/L Chloride (98-107) mmol/L Carbon Dioxide (22-30) mmol/L BUN (9-20) mg/dL Glucose (74-99) mg/dL POC Glucose (mg/dL) (75-99) mg/dL Calcium (8.4-10.2) mg/dL Ionized Calcium Guille (4.5-5.3) mg/dL Magnesium (1.6-2.3) mg/dL Total Protein (6.3-8.2) g/dL Albumin (3.5-5.0) g/dL Microbiology - Last 24 Hours (Table) 10/11/16 06:40 Blood Culture - Preliminary Blood No Growth after 48 hours 10/11/16 11:47 Catheter Tip Culture - Preliminary Catheter Tip Assessment and Plan (1) Acute pulmonary edema Status: Acute (2) Acute respiratory failure Status: Acute (3) Neutrophilic leukocytosis Status: Acute (4) Status post mitral valve repair Status: Acute (5) Atrial fibrillation with RVR Status: Acute (6) Congestive heart failure due to valvular disease Status: Acute (7) Hypercholesterolemia Status: Acute (8) Hypertension Status: Acute (9) Hypothyroidism (acquired) Status: Acute (10) Paroxysmal atrial fibrillation Status: Acute Plan: Plan dated 10/12/2016 The patient remain on mechanical ventilator. His pressor is currently on hold. He remains on sedation. He is getting nourishment. His vent settings are appropriate. He isn't he is he has a very mild metabolic alkalosis. Medications labs and x-rays are reviewed. Additional recommendations suggestions are forthcoming. His prognosis is guarded. He is a very complex patient with a number of medical problems. We'll continue to follow closely. No additional recommendations are made at this time. Plan dated 10/13/2016 The patient remains on the mechanical ventilator. His drugs and vent settings are appropriate. He does have a mild metabolic alkalosis. We'll look into why that is. It may be from his mild hypokalemia. He'll continue on his tube feeds. Sternal repair hopefully on or Tuesday. We'll continue to follow. Labs x-rays medications are all reviewed. No additional recommendations are made. We'll continue to follow closely. Prognosis is guarded. Time with Patient: Greater than 30
--- NOTE | 2016-10-13 10:34 | P.PN ---
Subjective Principal diagnosis: Acute hypoxic respiratory failure requiring mechanical ventilation, present on admission. Sputum culture positive for Haemophilus influenza, serratia marcescens. Currently on Zosyn, vanco. Infectious disease following. CAT scan of the chest on 10/09/16 demonstrated dehiscence of sternal wires, an unexpected postsurgical condition related to the patient's underlying comorbidities. POD #16 aortic valve replacement, mitral valve repair, modified Frederick maze, mediastinal lymph node biopsy. Remains sedated on mechanical ventilation. Need to keep intubated until surgical intervention for sternal wire dehiscence per pulmonology. Fever resolved, afebrile. Pt still in AFib but heart rate controlled 80-90s. Levo off since 6 AM, propofol continues to be weaned down. PICC line placed yesterday , tip sent for culture per ID recommendations. Objective - Vital Signs Vital signs: Vital Signs Temp 99.5 F 10/13/16 04:00 Pulse 83 10/13/16 08:31 Resp 17 10/13/16 07:00 BP 119/88 10/08/16 05:00 Pulse Ox 98 10/13/16 07:00 Intake & Output 10/12/16 10/13/16 10/13/16 18:59 06:59 18:59 Intake Total 1078.994 871.060 276.949 Output Total 880 1115 325 Balance 198.994 -243.940 -48.051 Weight 116.3 kg Intake: IV 63 69 12 Pressure Bag 33 69 12 Sodium Chloride 0.9% 1, 30 000 ml @ 20 mls/hr IV . Q24H [facility] Rx#:[id number] Intake, IV Titration 645.994 442.060 264.949 Amount Calcium Gluconate 1,000 100 mg In Dextrose 5% in Water 100 ml @ 100 mls/hr IVPB ONCE ONE Rx#: [id number] Heparin Sodium,Porcine/ 175.333 194.311 D5w Pmx 25,000 unit In Dextrose/Water 1 500ml. bag @ 8.6 UNITS/KG/HR 20 mls/hr IV .Q24H [facility] Rx#: [id number] Lactated Ringers 1,000 ml 80 20 20 @ 20 mls/hr IV .Q24H [facility] Rx#:[id number] Norepinephrine 16 mg In 51.912 0.638 Dextrose 5% in Water 250 ml @ Titrate IV .Q0M [facility] Rx#:[id number] Piperacillin-Tazobactam 3 50 .375 gm In Dextrose/Water 1 50ml.bag @ 12.5 mls/hr IVPB Q8H [facility] Rx#: [id number] Propofol 500 mg In Empty 145.994 194.815 50 Bag 1 bag @ Titrate IV . Q0M [facility] Rx#:[id number] Sodium Chloride 0.9% 1, 20 000 ml @ 20 mls/hr IV . Q24H [facility] Rx#:[id number] Vancomycin 1,750 mg In 250 Sodium Chloride 0.9% 250 ml @ 125 mls/hr IVPB Q24H [facility] Rx#:[id number] Tube Feeding 330 360 Other 40 Output: Urine 880 1115 325 Other: Voiding Method Indwelling Catheter Indwelling Catheter # Bowel Movements 1 1 ABP, PAP, CO, CI - Last Documented Arterial Blood Pressure 113/47 - Constitutional General appearance: Present: no acute distress, obese - Respiratory Details: Lungs sounds diminished bilaterally. Respirations even, nonlabored on mechanical ventilation. Current settings tidal volume 500, FiO2 50%, respiratory rate 14, PEEP 8. - Cardiovascular Details: S1, S2 present. Irregular rate and rhythm, controlled atrial fibrillation on telemetry, no events noted on telemetry overnight. Heart hugger/teds/SCDs present. - Gastrointestinal Gastrointestinal Comment(s): Abdomen soft, nontender, nondistended. Active bowel sounds 4 quadrants. Vital tube feeding infusing at 30 mL/h through OG tube. - Genitourinary Genitourinary Comment(s): Duong present draining clear, yellow urine. Output approximate 75 mL/h overnight. - Integumentary Integumentary Comment(s): Anterior chest incision remains well approximated without any redness. - Psychiatric Psychiatric Comment(s): Remains sedated on mechanical ventilation. - Allied health notes Allied health notes reviewed: nursing - Labs CBC & Chem 7: 10/13/16 05:14 10/13/16 05:14 Labs: Abnormal Lab Results - Last 24 Hours (Table) 10/12/16 10/12/16 10/12/16 Range/Units 12:27 15:57 20:15 WBC (3.8-10.6) k/uL RBC (4.30-5.90) m/uL Hgb (13.0-17.5) gm/dL Hct (39.0-53.0) % RDW (11.5-15.5) % Neutrophils # (1.3-7.7) k/uL Lymphocytes # (1.0-4.8) k/uL PT (9.0-12.0) sec APTT (22.0-30.0) sec ABG pH (7.35-7.45) ABG pO2 (83-108) mmHg ABG HCO3 (21-25) mmol/L ABG Total CO2 (19-24) mmol/L Sodium (137-145) mmol/L Chloride (98-107) mmol/L Carbon Dioxide (22-30) mmol/L BUN (9-20) mg/dL Glucose (74-99) mg/dL POC Glucose (mg/dL) 154 H 135 H 134 H (75-99) mg/dL Calcium (8.4-10.2) mg/dL Ionized Calcium Guille (4.5-5.3) mg/dL Magnesium (1.6-2.3) mg/dL Total Protein (6.3-8.2) g/dL Albumin (3.5-5.0) g/dL 10/12/16 10/12/16 10/13/16 Range/Units 23:25 23:30 03:56 WBC (3.8-10.6) k/uL RBC (4.30-5.90) m/uL Hgb (13.0-17.5) gm/dL Hct (39.0-53.0) % RDW (11.5-15.5) % Neutrophils # (1.3-7.7) k/uL Lymphocytes # (1.0-4.8) k/uL PT (9.0-12.0) sec APTT 30.3 H (22.0-30.0) sec ABG pH (7.35-7.45) ABG pO2 (83-108) mmHg ABG HCO3 (21-25) mmol/L ABG Total CO2 (19-24) mmol/L Sodium (137-145) mmol/L Chloride (98-107) mmol/L Carbon Dioxide (22-30) mmol/L BUN (9-20) mg/dL Glucose (74-99) mg/dL POC Glucose (mg/dL) 144 H 130 H (75-99) mg/dL Calcium (8.4-10.2) mg/dL Ionized Calcium Guille (4.5-5.3) mg/dL Magnesium (1.6-2.3) mg/dL Total Protein (6.3-8.2) g/dL Albumin (3.5-5.0) g/dL 10/13/16 10/13/16 10/13/16 Range/Units 05:14 05:14 05:14 WBC 11.4 H (3.8-10.6) k/uL RBC 2.88 L (4.30-5.90) m/uL Hgb 8.8 L (13.0-17.5) gm/dL Hct 28.0 L (39.0-53.0) % RDW 18.4 H (11.5-15.5) % Neutrophils # 9.9 H (1.3-7.7) k/uL Lymphocytes # 0.8 L (1.0-4.8) k/uL PT 13.2 H (9.0-12.0) sec APTT (22.0-30.0) sec ABG pH (7.35-7.45) ABG pO2 (83-108) mmHg ABG HCO3 (21-25) mmol/L ABG Total CO2 (19-24) mmol/L Sodium 153 H (137-145) mmol/L Chloride 113 H (98-107) mmol/L Carbon Dioxide 32 H (22-30) mmol/L BUN 65 H (9-20) mg/dL Glucose 130 H (74-99) mg/dL POC Glucose (mg/dL) (75-99) mg/dL Calcium 7.4 L (8.4-10.2) mg/dL Ionized Calcium Guille 4.1 L (4.5-5.3) mg/dL Magnesium 2.9 H (1.6-2.3) mg/dL Total Protein 5.3 L (6.3-8.2) g/dL Albumin 2.4 L (3.5-5.0) g/dL 10/13/16 10/13/16 10/13/16 Range/Units 05:22 07:54 08:19 WBC (3.8-10.6) k/uL RBC (4.30-5.90) m/uL Hgb (13.0-17.5) gm/dL Hct (39.0-53.0) % RDW (11.5-15.5) % Neutrophils # (1.3-7.7) k/uL Lymphocytes # (1.0-4.8) k/uL PT (9.0-12.0) sec APTT (22.0-30.0) sec ABG pH 7.50 H (7.35-7.45) ABG pO2 67 L (83-108) mmHg ABG HCO3 31 H (21-25) mmol/L ABG Total CO2 32 H (19-24) mmol/L Sodium (137-145) mmol/L Chloride (98-107) mmol/L Carbon Dioxide (22-30) mmol/L BUN (9-20) mg/dL Glucose (74-99) mg/dL POC Glucose (mg/dL) 158 H 161 H (75-99) mg/dL Calcium (8.4-10.2) mg/dL Ionized Calcium Guille (4.5-5.3) mg/dL Magnesium (1.6-2.3) mg/dL Total Protein (6.3-8.2) g/dL Albumin (3.5-5.0) g/dL 10/13/16 Range/Units 08:23 WBC (3.8-10.6) k/uL RBC (4.30-5.90) m/uL Hgb (13.0-17.5) gm/dL Hct (39.0-53.0) % RDW (11.5-15.5) % Neutrophils # (1.3-7.7) k/uL Lymphocytes # (1.0-4.8) k/uL PT (9.0-12.0) sec APTT 44.2 H (22.0-30.0) sec ABG pH (7.35-7.45) ABG pO2 (83-108) mmHg ABG HCO3 (21-25) mmol/L ABG Total CO2 (19-24) mmol/L Sodium (137-145) mmol/L Chloride (98-107) mmol/L Carbon Dioxide (22-30) mmol/L BUN (9-20) mg/dL Glucose (74-99) mg/dL POC Glucose (mg/dL) (75-99) mg/dL Calcium (8.4-10.2) mg/dL Ionized Calcium Guille (4.5-5.3) mg/dL Magnesium (1.6-2.3) mg/dL Total Protein (6.3-8.2) g/dL Albumin (3.5-5.0) g/dL Microbiology - Last 24 Hours (Table) 10/11/16 06:40 Blood Culture - Preliminary Blood No Growth after 48 hours 10/11/16 11:47 Catheter Tip Culture - Preliminary Catheter Tip - Imaging and Cardiology Chest x-ray: image reviewed Assessment and Plan (1) Status post aortic valve replacement Status: Acute (2) Status post mitral valve repair Status: Acute (3) Acute renal failure Status: Acute (4) Neutrophilic leukocytosis Status: Acute (5) Atrial fibrillation with RVR Status: Acute (6) Histoplasmosis Status: Acute (7) Hypercholesterolemia Status: Acute (8) Hypertension Status: Acute (9) Hypothyroidism (acquired) Status: Acute (10) Obesity Status: Acute (11) Paroxysmal atrial fibrillation Status: Acute Plan: 1. Continue aspirin, Lopressor, digoxin, heparin drip 2. Continue amiodarone for A. fib prophylaxis. 3. Na level remains elevated. Discussed with pharmacy to place all IVPB in D5W instead of NS. KVO NS changed to LR. 4. Continue antibiotics per infectious disease. 5. Will give Lasix 20 mg IV push 1 today. 6. Ventilator management per pulmonology, wean O2 as tolerated. No plans for extubation until sternum stability established per pulmonary. 7. No coumadin at this time in anticipation of surgical revision of sternal wires. 8. Replace calcium. 9. Daily labs, x-rays 10. Strict I/O, daily weights. 11. More recommendations as patient progresses. Time with Patient: Greater than 30
[2016-10-13 11:50] LABS: Glucose,Whole Blood 163 mg/dL (75-99)
[2016-10-13] MEDS: HEPARIN SODIUM,PORCINE/D5W PMX 25,000 UNIT in DEXTROSE/WATER 1 500ML.BAG IV SCH (13:09)
[2016-10-13 16:25] LABS: Glucose,Whole Blood 140 mg/dL (75-99)
--- NOTE | 2016-10-13 18:10 | P.PN ---
Subjective Principal diagnosis: Status post open-heart surgery, respiratory failure, atrial fibrillation and CHF This patient with history of ruptured chordae tendineae, aortic regurgitation and atrial fibrillation, underwent mitral valve repair, aortic valve replacement and maze procedure. Patient was sent home in a stable condition but was readmitted with respiratory failure requiring intubation. Patient had bilateral infiltrates and effusions and evidence of either cardiogenic or noncardiogenic pulmonary edema. His echocardiogram showed good LV function. His ovalis also seems to function normally. However he was found to have sternal dehiscence and also rib fracture. It is planned that patient will have surgery for sternal dehiscence. Patient will be on mechanical ventilator until the repair is done. Overall patient prognosis is guarded. Patient is in atrial fibrillation with controlled ventricular response. Patient is on digoxin and Lopressor and also amiodarone. Chest x-ray today showed him cardiomegaly and evidence of congestion. Objective - Vital Signs Vital signs: Vital Signs Temp 98.1 F 10/13/16 16:00 Pulse 82 10/13/16 17:00 Resp 16 10/13/16 17:00 BP 119/88 10/08/16 05:00 Pulse Ox 94 L 10/13/16 17:00 Intake & Output 10/12/16 10/13/16 10/13/16 18:59 06:59 18:59 Intake Total 1078.994 335.288 9102.733 Output Total 880 1115 1315 Balance 198.994 -243.940 -18.267 Weight 116.3 kg 118.3 kg 118.3 kg Intake: IV 63 69 36 Pressure Bag 33 69 36 Sodium Chloride 0.9% 1, 30 000 ml @ 20 mls/hr IV . Q24H [facility] Rx#:[id number] Intake, IV Titration 645.994 442.060 960.733 Amount Calcium Gluconate 1,000 100 mg In Dextrose 5% in Water 100 ml @ 100 mls/hr IVPB ONCE ONE Rx#: [id number] Calcium Gluconate 2,000 100 mg In Dextrose 5% in Water 100 ml @ 100 mls/hr IVPB ONCE ONE Rx#: [id number] Heparin Sodium,Porcine/ 175.333 324.667 D5w Pmx 25,000 unit In Dextrose/Water 1 500ml. bag @ 8.6 UNITS/KG/HR 20 mls/hr IV .Q24H [facility] Rx#: [id number] Lactated Ringers 1,000 ml 80 20 140 @ 20 mls/hr IV .Q24H [facility] Rx#:[id number] Norepinephrine 16 mg In 51.912 1.258 Dextrose 5% in Water 250 ml @ Titrate IV .Q0M [facility] Rx#:[id number] Piperacillin-Tazobactam 3 50 .375 gm In Dextrose/Water 1 50ml.bag @ 12.5 mls/hr IVPB Q8H [facility] Rx#: [id number] Propofol 500 mg In Empty 145.994 194.815 144.808 Bag 1 bag @ Titrate IV . Q0M [facility] Rx#:[id number] Sodium Chloride 0.9% 1, 20 000 ml @ 20 mls/hr IV . Q24H [facility] Rx#:[id number] Vancomycin 1,750 mg In 250 Sodium Chloride 0.9% 250 ml @ 125 mls/hr IVPB Q24H [facility] Rx#:[id number] Vancomycin 1,750 mg In 250 Sodium Chloride 0.9% 250 ml @ 125 mls/hr IVPB Q48H [facility] Rx#:[id number] Tube Feeding 330 360 240 Other 40 60 Output: Urine 880 1115 1315 Other: Voiding Method Indwelling Catheter Indwelling Catheter Indwelling Catheter # Bowel Movements 1 1 1 ABP, PAP, CO, CI - Last Documented Arterial Blood Pressure 93/44 - Exam GENERAL EXAM: Patient sedated HEENT: Normocephalic. Normal reaction of pupils, equal size, normal range of extraocular motion. No erythema or exudates in the throat. NECK: No masses, no nuchal rigidity. CHEST: No chest wall deformity. LUNGS: [Diminished breath sounds, scattered rhonchi HEART: Irregular heart rhythm ABDOMEN: No hepatosplenomegaly, normal bowel sounds, no guarding or rigidity. SKIN: No rashes CENTRAL NERVOUS SYSTEM: Sedated EXTREMITIES: No cyanosis, clubbing or edema. - Labs CBC & Chem 7: 10/13/16 05:14 10/13/16 14:50 Labs: Abnormal Lab Results - Last 24 Hours (Table) 10/12/16 10/12/16 10/12/16 Range/Units 20:15 23:25 23:30 WBC (3.8-10.6) k/uL RBC (4.30-5.90) m/uL Hgb (13.0-17.5) gm/dL Hct (39.0-53.0) % RDW (11.5-15.5) % Neutrophils # (1.3-7.7) k/uL Lymphocytes # (1.0-4.8) k/uL PT (9.0-12.0) sec APTT 30.3 H (22.0-30.0) sec ABG pH (7.35-7.45) ABG pO2 (83-108) mmHg ABG HCO3 (21-25) mmol/L ABG Total CO2 (19-24) mmol/L Sodium (137-145) mmol/L Chloride (98-107) mmol/L Carbon Dioxide (22-30) mmol/L BUN (9-20) mg/dL Glucose (74-99) mg/dL POC Glucose (mg/dL) 134 H 144 H (75-99) mg/dL Calcium (8.4-10.2) mg/dL Ionized Calcium Guille (4.5-5.3) mg/dL Magnesium (1.6-2.3) mg/dL Total Protein (6.3-8.2) g/dL Albumin (3.5-5.0) g/dL 10/13/16 10/13/16 10/13/16 Range/Units 03:56 05:14 05:14 WBC 11.4 H (3.8-10.6) k/uL RBC 2.88 L (4.30-5.90) m/uL Hgb 8.8 L (13.0-17.5) gm/dL Hct 28.0 L (39.0-53.0) % RDW 18.4 H (11.5-15.5) % Neutrophils # 9.9 H (1.3-7.7) k/uL Lymphocytes # 0.8 L (1.0-4.8) k/uL PT (9.0-12.0) sec APTT (22.0-30.0) sec ABG pH (7.35-7.45) ABG pO2 (83-108) mmHg ABG HCO3 (21-25) mmol/L ABG Total CO2 (19-24) mmol/L Sodium 153 H (137-145) mmol/L Chloride 113 H (98-107) mmol/L Carbon Dioxide 32 H (22-30) mmol/L BUN 65 H (9-20) mg/dL Glucose 130 H (74-99) mg/dL POC Glucose (mg/dL) 130 H (75-99) mg/dL Calcium 7.4 L (8.4-10.2) mg/dL Ionized Calcium Guille 4.1 L (4.5-5.3) mg/dL Magnesium 2.9 H (1.6-2.3) mg/dL Total Protein 5.3 L (6.3-8.2) g/dL Albumin 2.4 L (3.5-5.0) g/dL 10/13/16 10/13/16 10/13/16 Range/Units 05:14 05:22 07:54 WBC (3.8-10.6) k/uL RBC (4.30-5.90) m/uL Hgb (13.0-17.5) gm/dL Hct (39.0-53.0) % RDW (11.5-15.5) % Neutrophils # (1.3-7.7) k/uL Lymphocytes # (1.0-4.8) k/uL PT 13.2 H (9.0-12.0) sec APTT (22.0-30.0) sec ABG pH 7.50 H (7.35-7.45) ABG pO2 67 L (83-108) mmHg ABG HCO3 31 H (21-25) mmol/L ABG Total CO2 32 H (19-24) mmol/L Sodium (137-145) mmol/L Chloride (98-107) mmol/L Carbon Dioxide (22-30) mmol/L BUN (9-20) mg/dL Glucose (74-99) mg/dL POC Glucose (mg/dL) 158 H (75-99) mg/dL Calcium (8.4-10.2) mg/dL Ionized Calcium Guille (4.5-5.3) mg/dL Magnesium (1.6-2.3) mg/dL Total Protein (6.3-8.2) g/dL Albumin (3.5-5.0) g/dL 10/13/16 10/13/16 10/13/16 Range/Units 08:19 08:23 11:48 WBC (3.8-10.6) k/uL RBC (4.30-5.90) m/uL Hgb (13.0-17.5) gm/dL Hct (39.0-53.0) % RDW (11.5-15.5) % Neutrophils # (1.3-7.7) k/uL Lymphocytes # (1.0-4.8) k/uL PT (9.0-12.0) sec APTT 44.2 H (22.0-30.0) sec ABG pH (7.35-7.45) ABG pO2 (83-108) mmHg ABG HCO3 (21-25) mmol/L ABG Total CO2 (19-24) mmol/L Sodium (137-145) mmol/L Chloride (98-107) mmol/L Carbon Dioxide (22-30) mmol/L BUN (9-20) mg/dL Glucose (74-99) mg/dL POC Glucose (mg/dL) 161 H 163 H (75-99) mg/dL Calcium (8.4-10.2) mg/dL Ionized Calcium Guille (4.5-5.3) mg/dL Magnesium (1.6-2.3) mg/dL Total Protein (6.3-8.2) g/dL Albumin (3.5-5.0) g/dL 10/13/16 10/13/16 Range/Units 14:50 16:23 WBC (3.8-10.6) k/uL RBC (4.30-5.90) m/uL Hgb (13.0-17.5) gm/dL Hct (39.0-53.0) % RDW (11.5-15.5) % Neutrophils # (1.3-7.7) k/uL Lymphocytes # (1.0-4.8) k/uL PT (9.0-12.0) sec APTT 53.8 H (22.0-30.0) sec ABG pH (7.35-7.45) ABG pO2 (83-108) mmHg ABG HCO3 (21-25) mmol/L ABG Total CO2 (19-24) mmol/L Sodium (137-145) mmol/L Chloride (98-107) mmol/L Carbon Dioxide (22-30) mmol/L BUN (9-20) mg/dL Glucose (74-99) mg/dL POC Glucose (mg/dL) 140 H (75-99) mg/dL Calcium (8.4-10.2) mg/dL Ionized Calcium Guille (4.5-5.3) mg/dL Magnesium (1.6-2.3) mg/dL Total Protein (6.3-8.2) g/dL Albumin (3.5-5.0) g/dL Microbiology - Last 24 Hours (Table) 10/11/16 11:47 Catheter Tip Culture - Final Catheter Tip 10/11/16 06:40 Blood Culture - Preliminary Blood No Growth after 48 hours Assessment and Plan (1) Acute renal failure Status: Acute (2) Acute respiratory failure Status: Acute (3) Status post aortic valve replacement Status: Acute (4) Status post mitral valve repair Status: Acute (5) Atrial fibrillation with RVR Status: Acute (6) Congestive heart failure due to valvular disease Status: Acute Plan: Continue current medical therapy including beta ismael and digoxin and amiodarone. Patient is also on antibiotics. Waiting for the surgical team to make a notation about surgery. Follow french folder recommendations. Prognosis is guarded
--- NOTE | 2016-10-13 19:25 | PN ---
DATE OF SERVICE: 10/13/2016 REASON FOR FOLLOWUP: Sepsis and pneumonia. INTERVAL HISTORY: The patient's fever has resolved. He is hemodynamically stable but did require off and on support dose Levophed this morning per the R.N. Has been tolerating his tube feeds. Did have some diarrhea and stool for C difficile came back negative. The patient remains intubated on the vent with surgery planned for Tuesday. On examination, blood pressure is 107/44 with a pulse of 84, temperature 98. He is 94% on 50% FiO2. General description is an elderly male lying in bed in no distress. RESPIRATORY SYSTEM: Unlabored breathing. Some coarse breath sounds at the base. No wheeze. HEART: S1, S2. Regular rate and rhythm. ABDOMEN: Soft. No tenderness. LABS: Hemoglobin is 8.8, white count of 11.4. Blood culture has been negative. Catheter tip culture negative. DIAGNOSTIC IMPRESSION AND PLAN: Patient with sepsis in a patient who did have ventilator-dependent respiratory failure. Sputum has been Serratia marcescens and haemophilus, currently covered with Zosyn. There is also concern for possible line sepsis in view of the new fever. The groin catheter has been discontinued. Patient at this time will continue on IV vancomycin, Pharmacy to dose, and Zosyn, with further adjustment in antibiotics based on his clinical response. Continue supportive care.
[2016-10-13 20:13] LABS: Glucose,Whole Blood 129 mg/dL (75-99)
[2016-10-13] MEDS: SENNOSIDES 8.6 MG TAB PO SCH (20:46)
[2016-10-14 00:19] LABS: Glucose,Whole Blood 159 mg/dL (75-99)
[2016-10-14] MEDS: INSULIN LISPRO (humaLOG) 300 UNIT/3 ML VIAL SQ SCH ×7 (00:20→23:48)
[2016-10-14] MEDS: PROPOFOL 500 MG in EMPTY BAG 1 BAG IV SCH ×5 (00:22→23:40)
[2016-10-14] MEDS: LEVALBUTEROL NEB (CONC) 1.25 MG/0.5 ML AMP INHALATION SCH ×6 (03:40→23:25)
[2016-10-14] MEDS: IPRATROPIUM 0.5 MG/2.5 ML NEBU INHALATION SCH ×6 (03:40→23:25)
[2016-10-14 04:34] LABS: Glucose,Whole Blood 126 mg/dL (75-99)
[2016-10-14] MEDS: PIPERACILLIN-TAZOBACTAM 3.375 GM in DEXTROSE/WATER 1 50ML.BAG IVPB SCH ×3 (04:54→19:21)
[2016-10-14 04:58] LABS: Anisocytosis Slight; Basophils % (A) 0 %; CH 29.8; CHCM 30.7; Eosinophils # (A) 0.3 k/uL (0-0.7); Eosinophils % (A) 3 %; HCT 28.4 % (39.0-53.0); HDW 4.03; HGB 8.7 gm/dL (13.0-17.5); Hypochromasia Marked; Luc # (Auto) 0.09; Luc % (Auto) 1; Lymphocytes # (A) 0.8 k/uL (1.0-4.8); Lymphocytes % (A) 10 %; MCH 30.1 pg (25.0-35.0); MCHC 30.7 g/dL (31.0-37.0); MCV 97.9 fL (80.0-100.0); Macrocytosis Slight; Mean Platelet Volume 8.2; Monocytes # (A) 0.4 k/uL (0-1.0); Monocytes % (A) 4 %; Neutrophils # (A) 7.1 k/uL (1.3-7.7); Neutrophils % (A) 81 %; Poikilocytosis Moderate; RDW 18.6 % (11.5-15.5); WBC 8.7 k/uL (3.8-10.6); WBC (Perox) 8.81
[2016-10-14] MEDS: LEVOTHYROXINE 75 MCG TAB PO SCH (05:05)
[2016-10-14] MEDS: VANCOMYCIN 2,000 MG in DEXTROSE 5% IN WATER 500 ML IVPB SCH ×2 (05:05)
[2016-10-14] MEDS: AMIODARONE 200 MG TAB PO SCH ×2 (05:05→19:18)
[2016-10-14 05:06] LABS: INR 1.2 (<1.1); Prothrombin Time 12.1 sec (9.0-12.0)
[2016-10-14 05:27] LABS: ABG HCO3 26 mmol/L (21-25); ABG PCO2 40 mmHg (35-45); ABG PH 7.43 (7.35-7.45); ABG PO2 74 mmHg (83-108)
[2016-10-14 05:28] LABS: ABG Base Excess 1.5 mmol/L; ABG TCO2 27 mmol/L (19-24)
[2016-10-14 05:56] LABS: Ionized Calcium 4.6 mg/dL (4.5-5.3)
[2016-10-14] MEDS: HEPARIN SODIUM,PORCINE/D5W PMX 25,000 UNIT in DEXTROSE/WATER 1 500ML.BAG IV SCH (06:11)
[2016-10-14 06:12] LABS: ALT 39 U/L (21-72); AST 32 U/L (17-59); Alkaline Phosphatase 57 U/L (38-126); Anion Gap 5 mmol/L; Blood Urea Nitrogen 66 mg/dL (9-20); Calcium 7.7 mg/dL (8.4-10.2); Carbon Dioxide 33 mmol/L (22-30); Chloride 112 mmol/L (98-107); Glucose 122 mg/dL (74-99); Non-African American GFR(MDRD) >60 (>60 ml/min/1.73 sqM); Phosphorous 4.3 mg/dL (2.5-4.5); Sodium 150 mmol/L (137-145); Total Bilirubin 0.8 mg/dL (0.2-1.3)
[2016-10-14 08:04] LABS: Glucose,Whole Blood 195 mg/dL (75-99)
--- NOTE | 2016-10-14 08:09 | XR ---
EXAMINATION TYPE: XR chest 1V portable DATE OF EXAM: 10/14/2016 7:05 AM COMPARISON: Prior chest x-ray 13 October 2016 HISTORY: Status post coronary artery bypass graft TECHNIQUE: Single frontal view of the chest is obtained. FINDINGS: Endotracheal tube, left-sided PICC line, NG tube and overlying cardiac leads are present. Patient is post median sternotomy, atrial appendage clipping is present. Bibasilar effusions and asso ciated atelectasis or edema again noted, median sternotomy dehiscence change is again noted. No evide nt pneumothorax. The heart remains enlarged. Interstitium appears prominent. IMPRESSION: Correlate for congestive heart failure. Median sternal dehiscence. Cardiomegaly, bilater al pleural effusions.
[2016-10-14 08:52] LABS: Glucose,Whole Blood 165 mg/dL (75-99)
[2016-10-14] MEDS: DOCUSATE ORAL SOLN 100 MG/10 ML CUP PO SCH ×2 (08:53→20:38)
[2016-10-14] MEDS: METOPROLOL TARTRATE 25 MG TAB PO SCH ×2 (08:57→20:38)
[2016-10-14] MEDS: DIGOXIN 250 MCG/ML 2 ML AMP IVP SCH (08:57)
[2016-10-14] MEDS: CHLORHEXIDINE GLUCONATE 15 ML CUP MUCOUS MEM SCH ×2 (08:57→20:37)
[2016-10-14] MEDS: PANTOPRAZOLE 40 MG/10 ML VIAL IVP SCH (09:01)
[2016-10-14] MEDS: LACTATED RINGERS 1,000 ML IV SCH (09:05)
--- NOTE | 2016-10-14 09:47 | P.PN ---
Subjective Principal diagnosis: Acute hypoxic respiratory failure requiring mechanical ventilation, present on admission. Sputum culture positive for Haemophilus influenza, serratia marcescens. Currently on Zosyn, vanco. Infectious disease following. CAT scan of the chest on 10/09/16 demonstrated dehiscence of sternal wires, an unexpected postsurgical condition related to the patient's underlying comorbidities. POD #17 aortic valve replacement, mitral valve repair, modified Frederick maze, mediastinal lymph node biopsy. Remains sedated on mechanical ventilation. Need to keep intubated until surgical intervention for sternal wire dehiscence per pulmonology. Fever resolved, afebrile. Patient converted to normal sinus rhythm last night. Propofol continues to be weaned down. PICC line placed, tip sent for culture per ID recommendations, preliminary negative. Objective - Vital Signs Vital signs: Vital Signs Temp 98.0 F 10/14/16 08:00 Pulse 65 10/14/16 08:25 Resp 16 10/14/16 08:00 BP 119/88 10/08/16 05:00 Pulse Ox 96 10/14/16 08:00 Intake & Output 10/13/16 10/14/16 10/14/16 18:59 06:59 18:59 Intake Total 6856.134 5376.410 108 Output Total 1485 1300 325 Balance -66.230 -182.590 -217 Weight 118.3 kg 118.3 kg Intake: IV 42 69 18 Pressure Bag 42 69 18 Intake, IV Titration 1016.770 628.410 Amount Calcium Gluconate 2,000 100 mg In Dextrose 5% in Water 100 ml @ 100 mls/hr IVPB ONCE ONE Rx#: [id number] Heparin Sodium,Porcine/ 324.667 500 D5w Pmx 25,000 unit In Dextrose/Water 1 500ml. bag @ 8.6 UNITS/KG/HR 20 mls/hr IV .Q24H [facility] Rx#: [id number] Lactated Ringers 1,000 ml 180 20 @ 20 mls/hr IV .Q24H [facility] Rx#:[id number] Norepinephrine 16 mg In 1.258 Dextrose 5% in Water 250 ml @ Titrate IV .Q0M [facility] Rx#:[id number] Propofol 500 mg In Empty 160.845 108.410 Bag 1 bag @ Titrate IV . Q0M [facility] Rx#:[id number] Vancomycin 1,750 mg In 250 Sodium Chloride 0.9% 250 ml @ 125 mls/hr IVPB Q48H [facility] Rx#:[id number] Tube Feeding 300 420 60 Other 60 30 Output: Urine 1485 1300 325 Other: Voiding Method Indwelling Catheter Indwelling Catheter # Bowel Movements 1 ABP, PAP, CO, CI - Last Documented Arterial Blood Pressure 122/54 - Constitutional General appearance: Present: no acute distress, obese - Respiratory Details: Lungs sounds diminished bilaterally with inspiratory and expiratory wheezes present. Respirations even, nonlabored on mechanical ventilation. Current settings tidal volume 500, FiO2 50%, respiratory rate 14, PEEP 8. Chest x-ray reviewed. - Cardiovascular Details: S1, S2 present. Regular rate and rhythm, normal sinus rhythm on telemetry. No edema present. Heart hugger/teds/SCDs present. Sternum being stabilized with heart hugger. - Gastrointestinal Gastrointestinal Comment(s): Abdomen soft, nontender, nondistended. Active bowel sounds 4 quadrants. Tube feeding infusing at 30 mL/h per OG tube. - Genitourinary Genitourinary Comment(s): Duong present draining clear yellow urine. Output 75 mL per hour overnight. - Integumentary Integumentary Comment(s): Anterior chest incision remains well approximated without any redness. - Musculoskeletal Musculoskeletal: Present: strength equal bilaterally - Psychiatric Psychiatric Comment(s): Remains sedated on mechanical ventilation. - Allied health notes Allied health notes reviewed: nursing - Labs CBC & Chem 7: 10/14/16 04:32 10/14/16 04:32 Labs: Abnormal Lab Results - Last 24 Hours (Table) 10/13/16 10/13/16 10/13/16 Range/Units 11:48 14:50 16:23 RBC (4.30-5.90) m/uL Hgb (13.0-17.5) gm/dL Hct (39.0-53.0) % MCHC (31.0-37.0) g/dL RDW (11.5-15.5) % Lymphocytes # (1.0-4.8) k/uL PT (9.0-12.0) sec APTT 53.8 H (22.0-30.0) sec ABG pO2 (83-108) mmHg ABG HCO3 (21-25) mmol/L ABG Total CO2 (19-24) mmol/L Sodium (137-145) mmol/L Chloride (98-107) mmol/L Carbon Dioxide (22-30) mmol/L BUN (9-20) mg/dL Glucose (74-99) mg/dL POC Glucose (mg/dL) 163 H 140 H (75-99) mg/dL Calcium (8.4-10.2) mg/dL Magnesium (1.6-2.3) mg/dL Total Protein (6.3-8.2) g/dL Albumin (3.5-5.0) g/dL 10/13/16 10/14/16 10/14/16 Range/Units 20:12 00:18 04:32 RBC 2.90 L (4.30-5.90) m/uL Hgb 8.7 L (13.0-17.5) gm/dL Hct 28.4 L (39.0-53.0) % MCHC 30.7 L (31.0-37.0) g/dL RDW 18.6 H (11.5-15.5) % Lymphocytes # 0.8 L (1.0-4.8) k/uL PT (9.0-12.0) sec APTT (22.0-30.0) sec ABG pO2 (83-108) mmHg ABG HCO3 (21-25) mmol/L ABG Total CO2 (19-24) mmol/L Sodium (137-145) mmol/L Chloride (98-107) mmol/L Carbon Dioxide (22-30) mmol/L BUN (9-20) mg/dL Glucose (74-99) mg/dL POC Glucose (mg/dL) 129 H 159 H (75-99) mg/dL Calcium (8.4-10.2) mg/dL Magnesium (1.6-2.3) mg/dL Total Protein (6.3-8.2) g/dL Albumin (3.5-5.0) g/dL 10/14/16 10/14/16 10/14/16 Range/Units 04:32 04:32 04:32 RBC (4.30-5.90) m/uL Hgb (13.0-17.5) gm/dL Hct (39.0-53.0) % MCHC (31.0-37.0) g/dL RDW (11.5-15.5) % Lymphocytes # (1.0-4.8) k/uL PT 12.1 H (9.0-12.0) sec APTT (22.0-30.0) sec ABG pO2 (83-108) mmHg ABG HCO3 (21-25) mmol/L ABG Total CO2 (19-24) mmol/L Sodium 150 H (137-145) mmol/L Chloride 112 H (98-107) mmol/L Carbon Dioxide 33 H (22-30) mmol/L BUN 66 H (9-20) mg/dL Glucose 122 H (74-99) mg/dL POC Glucose (mg/dL) 126 H (75-99) mg/dL Calcium 7.7 L (8.4-10.2) mg/dL Magnesium 3.0 H (1.6-2.3) mg/dL Total Protein 5.0 L (6.3-8.2) g/dL Albumin 2.4 L (3.5-5.0) g/dL 10/14/16 10/14/16 10/14/16 Range/Units 05:05 06:30 08:03 RBC (4.30-5.90) m/uL Hgb (13.0-17.5) gm/dL Hct (39.0-53.0) % MCHC (31.0-37.0) g/dL RDW (11.5-15.5) % Lymphocytes # (1.0-4.8) k/uL PT (9.0-12.0) sec APTT 47.0 H (22.0-30.0) sec ABG pO2 74 L (83-108) mmHg ABG HCO3 26 H (21-25) mmol/L ABG Total CO2 27 H (19-24) mmol/L Sodium (137-145) mmol/L Chloride (98-107) mmol/L Carbon Dioxide (22-30) mmol/L BUN (9-20) mg/dL Glucose (74-99) mg/dL POC Glucose (mg/dL) 195 H (75-99) mg/dL Calcium (8.4-10.2) mg/dL Magnesium (1.6-2.3) mg/dL Total Protein (6.3-8.2) g/dL Albumin (3.5-5.0) g/dL 10/14/16 Range/Units 08:44 RBC (4.30-5.90) m/uL Hgb (13.0-17.5) gm/dL Hct (39.0-53.0) % MCHC (31.0-37.0) g/dL RDW (11.5-15.5) % Lymphocytes # (1.0-4.8) k/uL PT (9.0-12.0) sec APTT (22.0-30.0) sec ABG pO2 (83-108) mmHg ABG HCO3 (21-25) mmol/L ABG Total CO2 (19-24) mmol/L Sodium (137-145) mmol/L Chloride (98-107) mmol/L Carbon Dioxide (22-30) mmol/L BUN (9-20) mg/dL Glucose (74-99) mg/dL POC Glucose (mg/dL) 165 H (75-99) mg/dL Calcium (8.4-10.2) mg/dL Magnesium (1.6-2.3) mg/dL Total Protein (6.3-8.2) g/dL Albumin (3.5-5.0) g/dL Microbiology - Last 24 Hours (Table) 10/11/16 06:40 Blood Culture - Preliminary Blood No Growth after 72 hours 10/11/16 11:47 Catheter Tip Culture - Final Catheter Tip - Imaging and Cardiology Chest x-ray: report reviewed, image reviewed Assessment and Plan (1) Status post aortic valve replacement Status: Acute (2) Status post mitral valve repair Status: Acute (3) Acute renal failure Status: Acute (4) Neutrophilic leukocytosis Status: Acute (5) Atrial fibrillation with RVR Status: Acute (6) Histoplasmosis Status: Acute (7) Hypercholesterolemia Status: Acute (8) Hypertension Status: Acute (9) Hypothyroidism (acquired) Status: Acute (10) Obesity Status: Acute (11) Paroxysmal atrial fibrillation Status: Acute Plan: 1. Continue aspirin, Lopressor, digoxin, heparin drip 2. Continue amiodarone for A. fib prophylaxis. 3. No coumadin at this time in anticipation of surgical revision of sternal wires. Probable surgery Tuesday 4. Continue antibiotics per infectious disease. 5. Ventilator management per pulmonology, wean O2 as tolerated. No plans for extubation until sternum stability established per pulmonary. 6. Diabetic management per internal medicine service. 7. Daily labs, x-rays 8. Strict I/O, daily weights. 9. More recommendations as patient progresses. Time with Patient: Greater than 30
[2016-10-14] MEDS: ASPIRIN 81 MG CHEW PO SCH (10:18)
--- NOTE | 2016-10-14 10:56 | P.PN ---
Subjective Principal diagnosis: Acute hypoxic respiratory failure This is a 71-year-old white male who was recently discharged from [facility] following aortic valve replacement and mitral valve repair he also had a mediastinal lymph node positive for histoplasmosis. His postoperative course was relatively uneventful, patient was actually discharged home last Tuesday. Yesterday morning, the called and she was concerned that her may be having seizure-like activity were and the patient went completely stiff, shaking all over, and he was staring blankly. He appeared at the time to be confused, and the 2 days. EMS was called, and the patient was brought into the ER. Upon arrival the patient was noted to be extremely short of breath, relatively hypoxic, and he was requiring at least 6 L of oxygen by nasal cannula. Chest x-ray was suggestive of congestive heart failure, patient was in atrial fibrillation and RVR with heart rate in the 120 range. Patient was already anticoagulated, and his INR was therapeutic upon presentation. At any rate patient was transferred to the ICU, and shortly after he arrived to the ICU, I was notified by the nurse taking care of the patient that he was not doing too well. Patient was struggling to breathe, hence I recommended immediate intubation and placement on mechanical ventilation. I reviewed the chest x-ray, and I felt that the chest x-ray clearly shows pulmonary edema, whether this is cardiogenic or noncardiogenic pulmonary edema it is difficult to tell, however at this point and considering the patient's cardiac history and considering the presentation of atrial fibrillation and RVR, I believe this is cardiogenic unless proven otherwise. Patient was given Lasix yesterday, and he was placed on Lasix drip today. His INR was noted to be elevated, however I was able to place a right triple-lumen catheter in the right groin to avoid the bleeding and if bleeding is noted that could be easily tampo naded. Echocardiogram showed good LV function and according to the business account manager his valves were noted to be unremarkable, patient was placed empirically on antibiotics just in case if we are dealing with underlying pneumonia which is again felt to be less likely considering the acute presentation. Even the issue of histoplasmosis is most likely chronic, and I strongly doubt chronic active histoplasmosis. But the patient was already on itraconazole on outpatient basis. The patient himself is now on mechanical ventilation, intubated, and on propofol drip. Patient was noted to have intermittent episodes of profound hypertension when suctioned. This is noted to be without bradycardia, but the blood pressure completely goes down to the 60s and 70s systolic with minimal suctioning of the endotracheal tube. Reevaluated today on 10/08/2016, patient remains on mechanical ventilation, however he is down to 50% and PEEP of 5. His gases are definitely improved, chest x-ray is showing definite improvement but the pleural effusions bilaterally seem to be a bit larger. This tissue edema seems to be a bit better. Ultrasound of the chest today showed a 5.6 cm pocket on the right side , and a left is pocket of 6.1 cm. INR on this patient remains elevated, and I believe at this point we will continue diuresing the patient rather than going for thoracentesis. ABG this morning showed a pO2 of a 0 pCO2 of 36 pH of 7.44. Leukocytosis seems to be significantly better, the limbs count is 18.8 and it was 31.9 on admission. Electrolytes are normal BUN is down to 60 creatinine is down to 2.01 patient renal profile is improving in spite of the fact that the patient diuresed about 5 L so far on Lasix drip. Patient remains intubated, on propofol drip, and he is requiring norepinephrine for low blood pressure. Heart rate seems to be better controlled, but the patient remains in A. fib with RVR intermittently. Reevaluated today on 10/09/2016, remains on mechanical ventilation, FiO2 is 50% PEEP is 5. Chest x-ray continues to show some improvement but continues to have bilateral pleural effusions left more so than right. ABG today is significantly improved pO2 is 100 pCO2 is 37 pH of 7.46. Renal profile is also improving, BUN is down to 50 creatinine is down to 1.40, and initially his creatinine was 2.86 upon presentation and his BUN was 67. Clearly the patient seems to be having better renal perfusion to see such an improvement in his overall renal status. And I am more convinced now that the presentation is a presentation of congestive heart failure and the patient will remain on Lasix drip at 5 mg per hour. Patient remains sedated, on propofol drip, we will plan to wake him up, and assess mental status, but I do not plan to wean and extubate at this point. Patient is not quite ready at this point. Continues to be in A. fib with RVR, and that is being addressed by cardiology on the case. Patient is nutritionally supported, he is on tube feeding. On 10/10/2016, patient remains on mechanical ventilation, he is back again on FiO2 of 50%, PEEP of 5, assist control rate of 16. ABG today showed a pO2 of 72 pCO2 of 30 pH of 7.58, hence his assist control rate was decreased from 20- 16. Chest x-ray continues to show pulmonary edema and bilateral pleural effusions, possibility of underlying pneumonia is not entirely ruled out especially with his sputum showing Haemophilus influenza and Serratia marcescens., patient remains on Zosyn. We'll go ahead and add Merrem for adequate coverage of both including Haemophilus and Serratia. Dr. Ramos is on the case, however he saw the patient last on 10/08, he is probably unaware of the new findings/cultures. Will ask RN to notify Dr. Ramos of the new cultures. Considering his chest x-ray, and the ABG is marginal, I don't believe the patient is ready for weaning, however I plan to arouse the patient today, assess his mental status, may or may not given a trial of weaning, but I am certain he is not ready to be weaned at this point. The patient is seen again today 10/11/2016 in follow-up in the intensive care unit. He remains intubated on the mechanical ventilator. Current vent settings assist control 14, tidal volume 500, FiO2 50% and a PEEP of 8. Morning ABGs reveal a P O2 of 78, pCO2 43, pH 7.44 with mild metabolic alkalosis. He is currently on Lasix drip at 5 mg per hour, levo fed is being weaned down as tolerated currently at 5 mcg/m. Propofol is currently off. He has a 0.9 at a KVO. He is receiving Vital HP tube feedings at 30 MLS per hour which is at goal. He is currently in a negative balance. His chest x-ray reveals small bilateral pleural effusions. He did spike a temperature of 102 last night. He is currently on vancomycin, Zosyn and Merrem based on positive sputum cultures including Haemophilus and Serratia marcescens. A PICC line is being replaced. Femoral catheter triple lumen tip is being sent for culture. He has had issues with atrial fibrillation with rapid ventricular response. His Cordarone is currently at 400 mg twice a day along with digoxin. A computed tomography scan of the chest revealed sternal dehiscence. The plan is for repair this week. Progress note dated 10/12/2016 71-year-old male who remains intubated in the ICU. He has a sternal dehiscence and surgeries plan sometime this week. He is doing reasonably well. Yesterday he was wide awake. Today he is back on DIP or van. The plan is to keep him on the ventilator until he has his sternal repair. Current vent settings are the assist control mode rate of 14 tidal volume of 500 FiO2 50% and a PEEP of 8. Blood gases show a PaO2 of 70 for a pCO2 41 and a pH 7.46. His pressor, levophed, is on hold, he's on .9 IV at KVO Diprovan at 25 mics per kilogram per minute and vital high protein at 30 with a goal of 30. Currently he is in atrial fibrillation. Progress note dated 10/13/2016 71-year-old male who remains intubated in the ICU. 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 He is doing reasonably well. The sternal repair will be done either on or Tuesday by Dr. Riggs. The patient currently is being sedated on propofol at 20 mics per kilogram per minute. He is on lactated Ringer's at KVO and heparin drip via weightbase protocol. The norepinephrine is currently on hold and he is receiving vital high protein at a rate of 30 with a goal of 30. His vent settings include the assist control mode rate of 14 Lyme 500 FiO2 50% PEEP of 8. Blood gases show a PaO2 of 67 a pCO2 40 and a pH is 7.50. This is consistent with a metabolic alkalosis. The patient is seen again today 10/14/2016 in follow-up. He remains intubated and on the mechanical ventilator. His current settings are assist control of 14 , tidal volume 500, FiO2 50% and a PEEP of 8. Morning blood gases reveal a P O2 of 74, pCO2 40, pH 7.43. He is currently on lactated Ringer's IV at 20 mL per hour, propofol at 15 mcg/m. He is on a heparin drip weightbase protocol. He is also getting tube feedings of Vital at 30 mL per hour which is his goal. His chest x-ray does show some evidence of fluid volume overload. He has had daily interruption of sedation and does follow commands and makes good eye contact. Plan is for repair of his sternal dehiscence tomorrow per cardiothoracic services. Objective - Vital Signs Vital signs: Vital Signs Temp 98.0 F 10/14/16 08:00 Pulse 65 10/14/16 10:00 Resp 20 10/14/16 10:00 BP 119/88 10/08/16 05:00 Pulse Ox 96 10/14/16 10:00 Intake & Output 10/13/16 10/14/16 10/14/16 18:59 06:59 18:59 Intake Total 3225.949 9982.410 243.495 Output Total 1485 1300 475 Balance -66.230 -182.590 -231.505 Weight 118.3 kg 118.6 kg 118.6 kg Intake: IV 42 69 21 Pressure Bag 42 69 21 Intake, IV Titration 1016.770 628.410 102.495 Amount Calcium Gluconate 2,000 100 mg In Dextrose 5% in Water 100 ml @ 100 mls/hr IVPB ONCE ONE Rx#: [id number] Heparin Sodium,Porcine/ 324.667 500 D5w Pmx 25,000 unit In Dextrose/Water 1 500ml. bag @ 8.6 UNITS/KG/HR 20 mls/hr IV .Q24H STEVAN Rx#: [id number] Lactated Ringers 1,000 ml 180 20 60 @ 20 mls/hr IV .Q24H STEVAN Rx#:[id number] Norepinephrine 16 mg In 1.258 Dextrose 5% in Water 250 ml @ Titrate IV .Q0M STEVAN Rx#:[id number] Propofol 500 mg In Empty 160.845 108.410 42.495 Bag 1 bag @ Titrate IV . Q0M STEVAN Rx#:[id number] Vancomycin 1,750 mg In 250 Sodium Chloride 0.9% 250 ml @ 125 mls/hr IVPB Q48H STEVAN Rx#:[id number] Tube Feeding 300 420 90 Other 60 30 Output: Urine 1485 1300 475 Other: Voiding Method Indwelling Catheter Indwelling Catheter Indwelling Catheter # Bowel Movements 1 ABP, PAP, CO, CI - Last Documented Arterial Blood Pressure 139/62 - Exam GENERAL EXAM: Intubated, sedated. HEAD: Normocephalic. EYES: A she reaction of pupils, equal size. NOSE: Clear with pink turbinates. THROAT: Oral endotracheal and gastric tube secured in place. No erythema or exudates. NECK: No masses, no JVD. CHEST: Sternal dehiscence per computed tomography scan LUNGS: Equal air entry with scattered rhonchi. Crackles in the posterior bases. CVS: S1 and S2 normal with no audible murmurs, irregular rhythm. ABDOMEN: Soft. Extremities: There is trace peripheral edema. No clubbing, no cyanosis. Peripheral pulses are intact. - Labs CBC & Chem 7: 10/14/16 04:32 10/14/16 04:32 Labs: Abnormal Lab Results - Last 24 Hours (Table) 10/13/16 10/13/16 10/13/16 Range/Units 11:48 14:50 16:23 RBC (4.30-5.90) m/uL Hgb (13.0-17.5) gm/dL Hct (39.0-53.0) % MCHC (31.0-37.0) g/dL RDW (11.5-15.5) % Lymphocytes # (1.0-4.8) k/uL PT (9.0-12.0) sec APTT 53.8 H (22.0-30.0) sec ABG pO2 (83-108) mmHg ABG HCO3 (21-25) mmol/L ABG Total CO2 (19-24) mmol/L Sodium (137-145) mmol/L Chloride (98-107) mmol/L Carbon Dioxide (22-30) mmol/L BUN (9-20) mg/dL Glucose (74-99) mg/dL POC Glucose (mg/dL) 163 H 140 H (75-99) mg/dL Calcium (8.4-10.2) mg/dL Magnesium (1.6-2.3) mg/dL Total Protein (6.3-8.2) g/dL Albumin (3.5-5.0) g/dL 10/13/16 10/14/16 10/14/16 Range/Units 20:12 00:18 04:32 RBC 2.90 L (4.30-5.90) m/uL Hgb 8.7 L (13.0-17.5) gm/dL Hct 28.4 L (39.0-53.0) % MCHC 30.7 L (31.0-37.0) g/dL RDW 18.6 H (11.5-15.5) % Lymphocytes # 0.8 L (1.0-4.8) k/uL PT (9.0-12.0) sec APTT (22.0-30.0) sec ABG pO2 (83-108) mmHg ABG HCO3 (21-25) mmol/L ABG Total CO2 (19-24) mmol/L Sodium (137-145) mmol/L Chloride (98-107) mmol/L Carbon Dioxide (22-30) mmol/L BUN (9-20) mg/dL Glucose (74-99) mg/dL POC Glucose (mg/dL) 129 H 159 H (75-99) mg/dL Calcium (8.4-10.2) mg/dL Magnesium (1.6-2.3) mg/dL Total Protein (6.3-8.2) g/dL Albumin (3.5-5.0) g/dL 10/14/16 10/14/16 10/14/16 Range/Units 04:32 04:32 04:32 RBC (4.30-5.90) m/uL Hgb (13.0-17.5) gm/dL Hct (39.0-53.0) % MCHC (31.0-37.0) g/dL RDW (11.5-15.5) % Lymphocytes # (1.0-4.8) k/uL PT 12.1 H (9.0-12.0) sec APTT (22.0-30.0) sec ABG pO2 (83-108) mmHg ABG HCO3 (21-25) mmol/L ABG Total CO2 (19-24) mmol/L Sodium 150 H (137-145) mmol/L Chloride 112 H (98-107) mmol/L Carbon Dioxide 33 H (22-30) mmol/L BUN 66 H (9-20) mg/dL Glucose 122 H (74-99) mg/dL POC Glucose (mg/dL) 126 H (75-99) mg/dL Calcium 7.7 L (8.4-10.2) mg/dL Magnesium 3.0 H (1.6-2.3) mg/dL Total Protein 5.0 L (6.3-8.2) g/dL Albumin 2.4 L (3.5-5.0) g/dL 10/14/16 10/14/16 10/14/16 Range/Units 05:05 06:30 08:03 RBC (4.30-5.90) m/uL Hgb (13.0-17.5) gm/dL Hct (39.0-53.0) % MCHC (31.0-37.0) g/dL RDW (11.5-15.5) % Lymphocytes # (1.0-4.8) k/uL PT (9.0-12.0) sec APTT 47.0 H (22.0-30.0) sec ABG pO2 74 L (83-108) mmHg ABG HCO3 26 H (21-25) mmol/L ABG Total CO2 27 H (19-24) mmol/L Sodium (137-145) mmol/L Chloride (98-107) mmol/L Carbon Dioxide (22-30) mmol/L BUN (9-20) mg/dL Glucose (74-99) mg/dL POC Glucose (mg/dL) 195 H (75-99) mg/dL Calcium (8.4-10.2) mg/dL Magnesium (1.6-2.3) mg/dL Total Protein (6.3-8.2) g/dL Albumin (3.5-5.0) g/dL 10/14/16 Range/Units 08:44 RBC (4.30-5.90) m/uL Hgb (13.0-17.5) gm/dL Hct (39.0-53.0) % MCHC (31.0-37.0) g/dL RDW (11.5-15.5) % Lymphocytes # (1.0-4.8) k/uL PT (9.0-12.0) sec APTT (22.0-30.0) sec ABG pO2 (83-108) mmHg ABG HCO3 (21-25) mmol/L ABG Total CO2 (19-24) mmol/L Sodium (137-145) mmol/L Chloride (98-107) mmol/L Carbon Dioxide (22-30) mmol/L BUN (9-20) mg/dL Glucose (74-99) mg/dL POC Glucose (mg/dL) 165 H (75-99) mg/dL Calcium (8.4-10.2) mg/dL Magnesium (1.6-2.3) mg/dL Total Protein (6.3-8.2) g/dL Albumin (3.5-5.0) g/dL Microbiology - Last 24 Hours (Table) 10/11/16 06:40 Blood Culture - Preliminary Blood No Growth after 72 hours 10/11/16 11:47 Catheter Tip Culture - Final Catheter Tip Assessment and Plan Plan: Impression: 1 acute hypoxic respiratory failure requiring intubation and mechanical ventilation secondary to cardiogenic pulmonary edema however Possibility of sepsis and noncardiogenic pulmonary edema is in the differential, but again felt to be less likely. However the patient will be empirically covered with antibiotics. Sputum cultures are positive for Haemophilus influenza, however the patient is on appropriate antibiotics coverage and will cover Haemophilus influenza and Serratia marcescens utilizing Zosyn and meropenem The leukocytosis upon presentation is a bit concerning., But that seems to be improving and his WBC count is much better today. 2 status post mitral valve repair and aortic valve replacement as well as mediastinal node biopsy. 3 acute renal failure, most likely secondary to poor perfusion, especially with the fact that the patient is noted to drop his blood pressure significantly upon coughing and this was witnessed while in the ICU. 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 5 bilateral pleural effusions, most likely effusions of congestive heart failure , I plan to treat with diuretics rather than thoracentesis at this point, especially with INR being elevated. If the effusion gets any larger, may have to drain with ultrasound guided thoracentesis. 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 7 multiple comorbidities including hypercholesterolemia, hypertension, hypothyroidism, obesity, osteoarthritis, thyroid cancer with previous surgery and radiation, history of rheumatic fever, and history of moderate pulmonary hypertension. Plan: The patient was seen and evaluated by Dr. Armando. His chest x-ray, ABGs and labs were reviewed. As the patient will be returned to the OR tomorrow for repair of sternal dehiscence we'll continue the patient on the mechanical ventilator. In the interim, we'll continue with his current medications. We will continue to follow and make further recommendations based on his clinical status. Critical care time 35 minutes.
--- NOTE | 2016-10-14 11:19 | CDI ---
In responding to this query, please exercise your independent professional judgment. The [facility] Coding Staff and Clinical Documentation Specialists appreciate your assistance in clarifying documentation, maintaining compliance with coding guidelines, accurately documenting patients condition and capturing severity of illness. The fact that a question is asked does not imply that any particular answer is desired or expected. Communication forms are a method of clarifying documentation and are not made part of the Legal Health Record. Thank you in advance for your clarification. Last Revision, April 2015 Janethbhavana Perez [address] [facility] [place] [address] Documentation Clarification Form Date: 10/14/2016 10:24:00 AM From: Gerson Sawyer, RN, BSN, CDI Admit Date: 10/06/2016 11:17:00 AM Patient Name: Jn Stevenson Visit Number: [id number] Dr. Jae Riggs/Charisse Croft [employer]-C: Per initial pulmonary consult (10/07), "acute hypoxic respiratory failure requiring intubation/mechanical ventilation secondary to cardiogenic or noncardiogenic pulmonary edema, possibility of sepsis and noncardiogenic pulmonary edema is a different differential, will be empirically covered with antibiotics, the leukocytosis upon presentation is a bit concerning". Per ID note (10/11), "patient with sepsis who did have fever of 102 deg, did have an elevated WBC- source could be likely a combination of PNA, that has adequately been covered w/Zosyn, ( ) of sepsis in a patient who did have a groin central line has been d/c'd". On 10/12, ID documents, "pt w/sepsis with source of possible femoral line that was d/c'd vs sternal osteo, as well as serratia PNA". History/Risk Factors: 71 yo male presents via EMS after witnessed seizure like activity. Upon EMS arrival, he was noted to have some DARYA with SpO2 of 88 % on RA. He was recently discharged 2 days ago from the hospital after having a aortic valve replacement/mitral valve repair and mediastinal lymph node biopsy. He has current mediastinal lymphadenopathy w/histoplasmosis being treated with antibiotics. Clinical Indicators: WBC: 24.6-31.9 Lactic acid: 2.8 Blood cultures: negative to date x2 sets Sputum cultures: Haemophilus influenza, Serratia Marcescens Catheter tip culture: no growth after 48 hours Vitals signs on admission: 153/96, 141, 24, 98.3, 90% 4L BP shortly after admit: 82/46, 71/35- Levophed gtt initiated Other Clinical Indicators: CXR (10/07): left and RLL infiltrates Treatment: ICU, mechanical ventilation, Levophed gtt, Tylenol, Ibuprofen, central line Antibiotics: Meropenem, Vanco, Zosyn IV Bolus: None, patient also being treated for CHF exacerbation and was on Lasix gtt Cr: 2.6-2.8, being treated for acute renal failure with ATN In your professional opinion, can you please clarify if these findings signify one of the following conditions, whether the condition is POA, and possible cause(s), if known? Sepsis (POA or not POA) Severe Sepsis Septic Shock Unable to determine Other, please specify * Identify the (suspected) organism * Link or clarify if there is associated (due to/with): - Organ failure - Shock (septic/cardiogenic, etc) SIRS Criteria: 2 or more of the following may indicate SIRS Temperature < 96.8F(36C) or > 101.0F (38C) Heart Rate > 90 bpm Respiratory Rate > 20 breaths/min or PaCO2 < 32 mmHg White Blood Cell Count > 12,000 or < 4,000 cells/mm3 or > 10% bands Please document in your progress notes and discharge summary in order to capture severity of illness and risk of mortality. Include clinical findings that support your diagnosis. FYI: Press F11 to launch patient chart. Place X here if this finding has no clinical significance, is not applicable or if you are not able to provide any additional documentation. WILSON
[2016-10-14 12:00] LABS: Glucose,Whole Blood 152 mg/dL (75-99)
[2016-10-14 12:20] LABS: Glucose,Whole Blood 143 mg/dL (75-99)
[2016-10-14 15:52] LABS: Glucose,Whole Blood 137 mg/dL (75-99)
--- NOTE | 2016-10-14 17:53 | PN ---
DATE OF SERVICE: 10/14/2016 REASON FOR FOLLOWUP: Pneumonia and sepsis. INTERVAL HISTORY: The patient is afebrile. He is hemodynamically stable, not on any pressor support at this point. So far it is stable. He is tolerating his tube feed currently at 30 mL/hour. Did have some diarrhea with an episode of stool this morning. Stool for C difficile has been negative. On examination, blood pressure is 137/55 with a pulse of 66, temperature 98. He is 96% on 50% FiO2. General description is an elderly male lying in bed in no distress. RESPIRATORY SYSTEM: Unlabored breathing. Clear to auscultation anteriorly. HEART: S1, S2. Regular rate and rhythm. ABDOMEN: Soft. No tenderness. LABS: Hemoglobin 8.7, white count normalized to 8.7 with a BUN of 66, creatinine 1.10. Blood culture negative. DIAGNOSTIC IMPRESSION AND PLAN: Patient with sepsis, source multifactorial. Did have a component of pneumonia. Sputum with haemophilus and Serratia marcescens. Also concern for fluid behind the sternum , await surgery tomorrow. fluid should be sent for cultures. Continue patient on vancomycin and Zosyn. Adjust antibiotics further based on the cultures. Continue supportive care. MTDD
[2016-10-14 19:30] LABS: Glucose,Whole Blood 148 mg/dL (75-99)
[2016-10-14] MEDS: SENNOSIDES 8.6 MG TAB PO SCH (20:36)
--- NOTE | 2016-10-14 21:38 | P.PN ---
Subjective Principal diagnosis: Status post open-heart surgery, respiratory failure, atrial fibrillation and CHF and sternal dehiscence This patient with history of ruptured chordae tendineae, aortic regurgitation and atrial fibrillation, underwent mitral valve repair, aortic valve replacement and maze procedure. Patient was sent home in a stable condition but was readmitted with respiratory failure requiring intubation. Patient had bilateral infiltrates and effusions and evidence of either cardiogenic or noncardiogenic pulmonary edema. His echocardiogram showed good LV function. His ovalis also seems to function normally. However he was found to have sternal dehiscence and also rib fracture. It is planned that patient will have surgery for sternal dehiscence. Patient will be on mechanical ventilator until the repair is done. Overall patient prognosis is guarded. Patient is in atrial fibrillation with controlled ventricular response. Patient is on digoxin and Lopressor and also amiodarone. Chest x-ray today showed him cardiomegaly and evidence of congestion, medial sternal dehiscence and bilateral pleural effusions Objective - Vital Signs Vital signs: Vital Signs Temp 97.7 F 10/14/16 19:00 Pulse 58 L 10/14/16 21:00 Resp 14 10/14/16 21:00 BP 119/88 10/08/16 05:00 Pulse Ox 95 10/14/16 21:00 Intake & Output 10/14/16 10/14/16 10/15/16 06:59 18:59 06:59 Intake Total 1117.410 665.000 289 Output Total 1300 1040 170 Balance -182.590 -375.000 119 Weight 118.6 kg 118.6 kg 118.6 kg Intake: IV 69 45 9 Pressure Bag 69 45 9 Intake, IV Titration 628.410 230.000 160 Amount Heparin Sodium,Porcine/ 500 D5w Pmx 25,000 unit In Dextrose/Water 1 500ml. bag @ 8.6 UNITS/KG/HR 20 mls/hr IV .Q24H [facility] Rx#: [id number] Lactated Ringers 1,000 ml 20 180 60 @ 20 mls/hr IV .Q24H [facility] Rx#:[id number] Piperacillin-Tazobactam 3 50 .375 gm In Dextrose/Water 1 50ml.bag @ 12.5 mls/hr IVPB Q8H [facility] Rx#: [id number] Propofol 500 mg In Empty 108.410 50.000 50 Bag 1 bag @ Titrate IV . Q0M [facility] Rx#:[id number] Tube Feeding 420 330 90 Other 60 30 Output: Urine 1300 1040 170 Other: Voiding Method Indwelling Catheter Indwelling Catheter Indwelling Catheter ABP, PAP, CO, CI - Last Documented Arterial Blood Pressure 119/47 - Exam GENERAL EXAM: Patient sedated HEENT: Normocephalic. Normal reaction of pupils, equal size, normal range of extraocular motion. No erythema or exudates in the throat. NECK: No masses, no nuchal rigidity. CHEST: No chest wall deformity. LUNGS: [Diminished breath sounds, scattered rhonchi HEART: Irregular heart rhythm ABDOMEN: No hepatosplenomegaly, normal bowel sounds, no guarding or rigidity. SKIN: No rashes CENTRAL NERVOUS SYSTEM: Sedated EXTREMITIES: No cyanosis, clubbing or edema. - Labs CBC & Chem 7: 10/14/16 04:32 10/14/16 04:32 Labs: Abnormal Lab Results - Last 24 Hours (Table) 10/14/16 10/14/16 10/14/16 Range/Units 00:18 04:32 04:32 RBC 2.90 L (4.30-5.90) m/uL Hgb 8.7 L (13.0-17.5) gm/dL Hct 28.4 L (39.0-53.0) % MCHC 30.7 L (31.0-37.0) g/dL RDW 18.6 H (11.5-15.5) % Lymphocytes # 0.8 L (1.0-4.8) k/uL PT (9.0-12.0) sec APTT (22.0-30.0) sec ABG pO2 (83-108) mmHg ABG HCO3 (21-25) mmol/L ABG Total CO2 (19-24) mmol/L Sodium 150 H (137-145) mmol/L Chloride 112 H (98-107) mmol/L Carbon Dioxide 33 H (22-30) mmol/L BUN 66 H (9-20) mg/dL Glucose 122 H (74-99) mg/dL POC Glucose (mg/dL) 159 H (75-99) mg/dL Calcium 7.7 L (8.4-10.2) mg/dL Magnesium 3.0 H (1.6-2.3) mg/dL Total Protein 5.0 L (6.3-8.2) g/dL Albumin 2.4 L (3.5-5.0) g/dL Crossmatch 10/14/16 10/14/16 10/14/16 Range/Units 04:32 04:32 05:05 RBC (4.30-5.90) m/uL Hgb (13.0-17.5) gm/dL Hct (39.0-53.0) % MCHC (31.0-37.0) g/dL RDW (11.5-15.5) % Lymphocytes # (1.0-4.8) k/uL PT 12.1 H (9.0-12.0) sec APTT (22.0-30.0) sec ABG pO2 74 L (83-108) mmHg ABG HCO3 26 H (21-25) mmol/L ABG Total CO2 27 H (19-24) mmol/L Sodium (137-145) mmol/L Chloride (98-107) mmol/L Carbon Dioxide (22-30) mmol/L BUN (9-20) mg/dL Glucose (74-99) mg/dL POC Glucose (mg/dL) 126 H (75-99) mg/dL Calcium (8.4-10.2) mg/dL Magnesium (1.6-2.3) mg/dL Total Protein (6.3-8.2) g/dL Albumin (3.5-5.0) g/dL Crossmatch 10/14/16 10/14/16 10/14/16 Range/Units 06:30 08:03 08:44 RBC (4.30-5.90) m/uL Hgb (13.0-17.5) gm/dL Hct (39.0-53.0) % MCHC (31.0-37.0) g/dL RDW (11.5-15.5) % Lymphocytes # (1.0-4.8) k/uL PT (9.0-12.0) sec APTT 47.0 H (22.0-30.0) sec ABG pO2 (83-108) mmHg ABG HCO3 (21-25) mmol/L ABG Total CO2 (19-24) mmol/L Sodium (137-145) mmol/L Chloride (98-107) mmol/L Carbon Dioxide (22-30) mmol/L BUN (9-20) mg/dL Glucose (74-99) mg/dL POC Glucose (mg/dL) 195 H 165 H (75-99) mg/dL Calcium (8.4-10.2) mg/dL Magnesium (1.6-2.3) mg/dL Total Protein (6.3-8.2) g/dL Albumin (3.5-5.0) g/dL Crossmatch 10/14/16 10/14/16 10/14/16 Range/Units 11:58 12:19 13:52 RBC (4.30-5.90) m/uL Hgb (13.0-17.5) gm/dL Hct (39.0-53.0) % MCHC (31.0-37.0) g/dL RDW (11.5-15.5) % Lymphocytes # (1.0-4.8) k/uL PT (9.0-12.0) sec APTT (22.0-30.0) sec ABG pO2 (83-108) mmHg ABG HCO3 (21-25) mmol/L ABG Total CO2 (19-24) mmol/L Sodium (137-145) mmol/L Chloride (98-107) mmol/L Carbon Dioxide (22-30) mmol/L BUN (9-20) mg/dL Glucose (74-99) mg/dL POC Glucose (mg/dL) 152 H 143 H (75-99) mg/dL Calcium (8.4-10.2) mg/dL Magnesium (1.6-2.3) mg/dL Total Protein (6.3-8.2) g/dL Albumin (3.5-5.0) g/dL Crossmatch See Detail 10/14/16 10/14/16 Range/Units 15:50 19:28 RBC (4.30-5.90) m/uL Hgb (13.0-17.5) gm/dL Hct (39.0-53.0) % MCHC (31.0-37.0) g/dL RDW (11.5-15.5) % Lymphocytes # (1.0-4.8) k/uL PT (9.0-12.0) sec APTT (22.0-30.0) sec ABG pO2 (83-108) mmHg ABG HCO3 (21-25) mmol/L ABG Total CO2 (19-24) mmol/L Sodium (137-145) mmol/L Chloride (98-107) mmol/L Carbon Dioxide (22-30) mmol/L BUN (9-20) mg/dL Glucose (74-99) mg/dL POC Glucose (mg/dL) 137 H 148 H (75-99) mg/dL Calcium (8.4-10.2) mg/dL Magnesium (1.6-2.3) mg/dL Total Protein (6.3-8.2) g/dL Albumin (3.5-5.0) g/dL Crossmatch Microbiology - Last 24 Hours (Table) 10/11/16 06:40 Blood Culture - Preliminary Blood No Growth after 72 hours Assessment and Plan (1) Acute renal failure Status: Acute (2) Acute respiratory failure Status: Acute (3) Status post aortic valve replacement Status: Acute (4) Status post mitral valve repair Status: Acute (5) Atrial fibrillation with RVR Status: Acute (6) Congestive heart failure due to valvular disease Status: Acute Plan: Patient is planned to have repair of the sternal dehiscence tomorrow. Patient will continue on current medical therapy. Attempts to wean him off the respirator will be done after the surgery for dehiscence. Prognosis is guarded
[2016-10-14 23:50] LABS: Glucose,Whole Blood 136 mg/dL (75-99)
[2016-10-15] MEDS: HEPARIN SODIUM,PORCINE/D5W PMX 25,000 UNIT in DEXTROSE/WATER 1 500ML.BAG IV SCH (00:17)
[2016-10-15] MEDS: LEVALBUTEROL NEB (CONC) 1.25 MG/0.5 ML AMP INHALATION SCH ×6 (03:40→23:51)
[2016-10-15] MEDS: IPRATROPIUM 0.5 MG/2.5 ML NEBU INHALATION SCH ×6 (03:40→23:51)
[2016-10-15 04:06] LABS: Glucose,Whole Blood 118 mg/dL (75-99)
[2016-10-15] MEDS: PIPERACILLIN-TAZOBACTAM 3.375 GM in DEXTROSE/WATER 1 50ML.BAG IVPB SCH ×3 (04:55→21:04)
[2016-10-15] MEDS: INSULIN LISPRO (humaLOG) 300 UNIT/3 ML VIAL SQ SCH ×5 (04:56→21:06)
[2016-10-15] MEDS ORDERED: Pre Op ABX Message 1 EACH MISC MISCELLANE ONE (05:00)
[2016-10-15 05:15] LABS: Anisocytosis Slight; Basophils % (A) 0 %; CH 29.6; CHCM 30.8; Eosinophils # (A) 0.6 k/uL (0-0.7); Eosinophils % (A) 6 %; HCT 27.9 % (39.0-53.0); HDW 4.03; HGB 8.7 gm/dL (13.0-17.5); Hypochromasia Marked; Luc % (Auto) 1; Lymphocytes # (A) 0.8 k/uL (1.0-4.8); Lymphocytes % (A) 8 %; MCH 30.1 pg (25.0-35.0); MCHC 31.1 g/dL (31.0-37.0); MCV 96.9 fL (80.0-100.0); Macrocytosis Slight; Mean Platelet Volume 8.6; Monocytes # (A) 0.4 k/uL (0-1.0); Monocytes % (A) 4 %; Neutrophils # (A) 7.5 k/uL (1.3-7.7); Neutrophils % (A) 80 %; Poikilocytosis Moderate; RBC 2.88 m/uL (4.30-5.90); RDW 18.4 % (11.5-15.5); WBC 9.4 k/uL (3.8-10.6)
[2016-10-15 05:21] LABS: INR 1.2 (<1.1); Prothrombin Time 12.1 sec (9.0-12.0)
[2016-10-15 05:23] LABS: ABG PCO2 41 mmHg (35-45); ABG PH 7.47 (7.35-7.45); ABG PO2 79 mmHg (83-108)
[2016-10-15 05:24] LABS: ABG Base Excess 5.4 mmol/L; ABG HCO3 29 mmol/L (21-25); ABG TCO2 31 mmol/L (19-24)
[2016-10-15] MEDS: VANCOMYCIN 2,000 MG in DEXTROSE 5% IN WATER 500 ML IVPB SCH ×2 (05:44)
[2016-10-15] MEDS: LEVOTHYROXINE 75 MCG TAB PO SCH (05:44)
[2016-10-15] MEDS: AMIODARONE 200 MG TAB PO SCH ×2 (05:44→17:04)
[2016-10-15 06:08] LABS: Ionized Calcium 4.4 mg/dL (4.5-5.3)
[2016-10-15] MEDS: PROPOFOL 500 MG in EMPTY BAG 1 BAG IV SCH ×4 (06:14→21:05)
[2016-10-15 06:17] LABS: ALT 37 U/L (21-72); AST 22 U/L (17-59); Alkaline Phosphatase 58 U/L (38-126); Anion Gap 7 mmol/L; Blood Urea Nitrogen 64 mg/dL (9-20); Calcium 7.6 mg/dL (8.4-10.2); Carbon Dioxide 34 mmol/L (22-30); Chloride 109 mmol/L (98-107); Glucose 121 mg/dL (74-99); Magnesium 2.9 mg/dL (1.6-2.3); Non-African American GFR(MDRD) 59 (>60 ml/min/1.73 sqM); Phosphorous 4.3 mg/dL (2.5-4.5); Potassium 3.5 mmol/L (3.5-5.1); Sodium 150 mmol/L (137-145); Total Bilirubin 0.9 mg/dL (0.2-1.3); Total Protein 5.1 g/dL (6.3-8.2)
[2016-10-15] MEDS ORDERED: Potassium Replacement Protocol 1 EACH MISC MISCELLANE PRN (06:31)
--- NOTE | 2016-10-15 08:07 | XR ---
EXAMINATION TYPE: XR chest 1V portable DATE OF EXAM: 10/15/2016 6:34 AM COMPARISON: 10/14/2016 INDICATION: Difficulty breathing previous abnormal chest x-ray TECHNIQUE: Single frontal view of the chest is obtained. FINDINGS: The heart size is enlarged. The pulmonary vasculature is indistinct. There is increased opacity over the left lung compared to the right. Small right pleural effusion is present. A moderate left pleural effusion may be present. Findings appear stable. An endotracheal tube is present with tip above the linwood. Nasogastric tube is present, the distal ti p appears to be within the left upper quadrant of the abdomen. IMPRESSION: 1. Small to moderate bilateral pleural effusions. 2. Cardiomegaly. 3. Increased opacity left lung may be related to some underlying atelectasis or pneumonia. Follow-up is recommended.
[2016-10-15 08:14] LABS: Glucose,Whole Blood 153 mg/dL (75-99)
--- NOTE | 2016-10-15 09:15 | CONS ---
DATE OF CONSULTATION: 10/14/2016 REASON FOR CONSULTATION: Medical management requested by Dr. Riggs. CONSULTATION: This patient was admitted to hospital on 10/07/2016. Patient initially had come on September 23, had undergone a JAYDE and cardiac cath at that time that showed a ruptured ( ), mitral regurgitation, moderate pulmonary hypertension, paroxysmal atrial fibrillation and heart failure. 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 Patient was treated with fluconazole. The patient then had complication by atrial fibrillation and then put on amiodarone. Patient presented with shortness of breath, abdominal distention, was found to be in respiratory failure and patient had to be intubated. Please note patient had an aortic valve replacement and a mitral valve repair. Initial presentation at home was a seizure-like activity. Patient has been off anticoagulation at home for atrial fibrillation and patient had to be intubated. Patient's other chronic medical conditions include hyperlipidemia, osteoarthritis, hypothyroid. Patient never got his ( ) done as an outpatient. Additionally, patient is currently intubated on the ventilator. is at the bedside. REVIEW OF SYSTEMS: The patient is intubated. PAST MEDICAL HISTORY: History of atrial fibrillation, lung nodule, positive for histoplasmosis, CHF, hyperlipidemia, atrial fibrillation, osteoarthritis, hypothyroid, varicose vein, rheumatic fever. PAST SURGICAL HISTORY: Aortic valve replacement, mitral valve repair, cardiac cath, thyroidectomy, left total knee replacement, colonoscopy and polypectomy. SOCIAL HISTORY: Patient is . patient smoked 3 packs a day. Started in 1959 and stopped in 1979, then smoked cigars on and off from 1991 until 1999. Drinks anywhere from 1 to 2 drinks per day. He used to work at [employer]. Family history of blood clot, liver cancer. HOME MEDICATIONS: Coumadin 7.5 mg daily, potassium 10 mEq daily, multivitamin 1 tablet daily, Lopressor 12.5 p.o. b.i.d., Synthroid 150 mcg p.o. daily, itraconazole this was never filled, [place] 5 one to two tablets q.6 p.r.n., Lasix 40 mg daily, aspirin 81 mg daily, Cordarone 200 mg b.i.d. ALLERGIES: None. On examination, temperature 97.7, pulse 68, respirations 15, blood pressure 114/46, pulse ox 95% on 2 L. GENERAL APPEARANCE: Average build, lying in bed, intubated, BMI of 38.6. EYES: Pupils equal. Conjunctivae normal. HEENT: Endotracheal tube in place. NECK: JVD not raised, mass not palpable. Respiratory effort normal. LUNGS: Diminished breath sounds. CARDIOVASCULAR: First and second sounds normal. No edema. ABDOMEN: Soft, nontender. Liver and spleen not palpable. PSYCH: Unable to assess. NEUROLOGICAL: Pupils equal. There is response to pain. INVESTIGATIONS: White count 8.7, hemoglobin 8.7, platelets 212, sodium 150, potassium 4, BUN 66, creatinine 1.10. Accu-Cheks are noted. Albumin 2.4. Chest ultrasound shows bilateral pleural effusion. Current medications include amiodarone, aspirin, digoxin, IV heparin, [place], Atrovent, Xopenex, Synthroid, Lopressor, Levophed, IV Zosyn, propofol, vancomycin. ASSESSMENT: 1. Acute hypoxic respiratory failure requiring intubation and mechanical ventilation secondary to cardiogenic pulmonary edema, also possibly sepsis. 2. Acute renal failure, probably acute tubular necrosis and hypoperfusion. 3. Persistent atrial fibrillation with rapid ventricular rate. 4. 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 5. Bilateral pleural effusions significant for congestive heart failure. 6. 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 7. Hypercholesterolemia. 8. Essential hypertension. 9. Hypothyroidism. 10. Obesity. 11. Primary osteoarthritis. 12. Thyroid cancer with previous surgery, now hypothyroid. 13. Moderate secondary pulmonary hypertension. 14. Possibility of sepsis the source being at the central line versus sternal osteomyelitis. PLAN: Antibiotic stability being followed with Dr. Gonzalez. Also being followed by Critical Care and Cardiology. Prognosis is guarded. Patient's blood culture has been negative, sputum cultures has grown Haemophilus influenza and serratia marcescens. Thank you, Dr. Riggs.
[2016-10-15] MEDS: POTASSIUM CHLORIDE ORAL LIQUID 40 MEQ/30 ML CUP NG-TUBE SCH ×2 (09:23→10:22)
[2016-10-15] MEDS: ASPIRIN 81 MG CHEW PO SCH (09:24)
[2016-10-15] MEDS: CHLORHEXIDINE GLUCONATE 15 ML CUP MUCOUS MEM SCH ×2 (09:24→21:04)
[2016-10-15] MEDS: METOPROLOL TARTRATE 25 MG TAB PO SCH ×2 (09:25→21:02)
[2016-10-15] MEDS: PANTOPRAZOLE 40 MG/10 ML VIAL IVP SCH (09:25)
[2016-10-15] MEDS: DOCUSATE ORAL SOLN 100 MG/10 ML CUP PO SCH ×2 (09:25→21:02)
[2016-10-15] MEDS: DIGOXIN 250 MCG/ML 2 ML AMP IVP SCH (09:29)
[2016-10-15] MEDS: LACTATED RINGERS 1,000 ML IV SCH (10:22)
[2016-10-15] MEDS ORDERED: ATROPINE SULFATE 0.1 MG/ML 10ML SYRINGE ONE (11:45)
[2016-10-15 11:53] LABS: Glucose,Whole Blood 139 mg/dL (75-99)
[2016-10-15] MEDS ORDERED: ePHEDrine 50 MG/ML 1 ML AMP ONE (14:03)
[2016-10-15] MEDS ORDERED: fentaNYL (PF) 50 MCG/ML 2 ML AMP ONE (14:03)
[2016-10-15] MEDS ORDERED: ROCURONIUM BROMIDE 10 MG/ML 10 ML VIAL IV ONE (14:03)
[2016-10-15] MEDS ORDERED: MIDAZOLAM 2 MG/2 ML VIAL ONE (14:03)
[2016-10-15] MEDS ORDERED: IV FLUID CONTINUATION 800 ML IV ONE ×2 (14:03)
[2016-10-15] MEDS ORDERED: IV FLUID CONTINUATION 700 ML IV ONE ×2 (14:03)
--- NOTE | 2016-10-15 15:27 | P.PN ---
Subjective Principal diagnosis: Status post open-heart surgery, respiratory failure, atrial fibrillation and CHF and sternal dehiscence This patient with history of ruptured chordae tendineae, aortic regurgitation and atrial fibrillation, underwent mitral valve repair, aortic valve replacement and maze procedure. Patient was sent home in a stable condition but was readmitted with respiratory failure requiring intubation. Patient had bilateral infiltrates and effusions and evidence of either cardiogenic or noncardiogenic pulmonary edema. His echocardiogram showed good LV function. His ovalis also seems to function normally. However he was found to have sternal dehiscence and also rib fracture. It is planned that patient will have surgery for sternal dehiscence. Patient will be on mechanical ventilator until the repair is done. Overall patient prognosis is guarded. Patient is in atrial fibrillation with controlled ventricular response. Patient is on digoxin and Lopressor and also amiodarone. Chest x-ray today showed him cardiomegaly and evidence of congestion, medial sternal dehiscence and bilateral pleural effusions. Patient is reevaluated in 15 of October. Patient clinical status remained relatively stable. Patient has developed some hypoalbuminemia and also hypocalcemia. Chest x-ray showed bilateral effusions and infiltrates. His heart rate is slower. Beta blockers are being held. Patient went to have surgical procedure to close the sternal dehiscence. Objective - Vital Signs Vital signs: Vital Signs Temp 98.4 F 10/15/16 12:00 Pulse 51 L 10/15/16 13:00 Resp 12 10/15/16 13:00 BP 119/88 10/08/16 05:00 Pulse Ox 98 10/15/16 13:00 Intake & Output 10/14/16 10/15/16 10/15/16 18:59 06:59 18:59 Intake Total 692.771 1149.428 189.140 Output Total 1040 800 425 Balance -375.000 830.428 -235.860 Weight 118.6 kg 121.8 kg 121.8 kg Intake: IV 45 455 138 Lactated Ringers 1,000 ml 200 120 @ 20 mls/hr IV .Q24H [facility] Rx#:[id number] Piperacillin-Tazobactam 3 50 .375 gm In Dextrose/Water 1 50ml.bag @ 12.5 mls/hr IVPB Q8H [facility] Rx#: [id number] Pressure Bag 45 39 18 Vancomycin 2,000 mg In 166 Dextrose 5% in Water 500 ml @ 166.667 mls/hr IVPB Q24H [facility] Rx#:[id number] Intake, IV Titration 230.000 935.428 51.140 Amount Heparin Sodium,Porcine/ 679.503 D5w Pmx 25,000 unit In Dextrose/Water 1 500ml. bag @ 8.6 UNITS/KG/HR 20 mls/hr IV .Q24H [facility] Rx#: [id number] Lactated Ringers 1,000 ml 180 60 @ 20 mls/hr IV .Q24H [facility] Rx#:[id number] Piperacillin-Tazobactam 3 50 .375 gm In Dextrose/Water 1 50ml.bag @ 12.5 mls/hr IVPB Q8H [facility] Rx#: [id number] Propofol 500 mg In Empty 50.000 145.925 51.140 Bag 1 bag @ Titrate IV . Q0M [facility] Rx#:[id number] Tube Feeding 330 210 0 Other 60 30 Output: Urine 1040 800 425 Other: Voiding Method Indwelling Catheter Indwelling Catheter Indwelling Catheter # Bowel Movements 1 ABP, PAP, CO, CI - Last Documented Arterial Blood Pressure 118/46 - Labs CBC & Chem 7: 10/15/16 05:00 10/15/16 05:00 Labs: Abnormal Lab Results - Last 24 Hours (Table) 10/14/16 10/14/16 10/14/16 Range/Units 15:50 19:28 23:47 RBC (4.30-5.90) m/uL Hgb (13.0-17.5) gm/dL Hct (39.0-53.0) % RDW (11.5-15.5) % Lymphocytes # (1.0-4.8) k/uL PT (9.0-12.0) sec ABG pH (7.35-7.45) ABG pO2 (83-108) mmHg ABG HCO3 (21-25) mmol/L ABG Total CO2 (19-24) mmol/L Sodium (137-145) mmol/L Chloride (98-107) mmol/L Carbon Dioxide (22-30) mmol/L BUN (9-20) mg/dL Glucose (74-99) mg/dL POC Glucose (mg/dL) 137 H 148 H 136 H (75-99) mg/dL Calcium (8.4-10.2) mg/dL Ionized Calcium Guille (4.5-5.3) mg/dL Magnesium (1.6-2.3) mg/dL Total Protein (6.3-8.2) g/dL Albumin (3.5-5.0) g/dL 10/15/16 10/15/16 10/15/16 Range/Units 04:05 04:42 05:00 RBC 2.88 L (4.30-5.90) m/uL Hgb 8.7 L (13.0-17.5) gm/dL Hct 27.9 L (39.0-53.0) % RDW 18.4 H (11.5-15.5) % Lymphocytes # 0.8 L (1.0-4.8) k/uL PT (9.0-12.0) sec ABG pH 7.47 H (7.35-7.45) ABG pO2 79 L (83-108) mmHg ABG HCO3 29 H (21-25) mmol/L ABG Total CO2 31 H (19-24) mmol/L Sodium (137-145) mmol/L Chloride (98-107) mmol/L Carbon Dioxide (22-30) mmol/L BUN (9-20) mg/dL Glucose (74-99) mg/dL POC Glucose (mg/dL) 118 H (75-99) mg/dL Calcium (8.4-10.2) mg/dL Ionized Calcium Guille (4.5-5.3) mg/dL Magnesium (1.6-2.3) mg/dL Total Protein (6.3-8.2) g/dL Albumin (3.5-5.0) g/dL 10/15/16 10/15/16 10/15/16 Range/Units 05:00 05:00 08:10 RBC (4.30-5.90) m/uL Hgb (13.0-17.5) gm/dL Hct (39.0-53.0) % RDW (11.5-15.5) % Lymphocytes # (1.0-4.8) k/uL PT 12.1 H (9.0-12.0) sec ABG pH (7.35-7.45) ABG pO2 (83-108) mmHg ABG HCO3 (21-25) mmol/L ABG Total CO2 (19-24) mmol/L Sodium 150 H (137-145) mmol/L Chloride 109 H (98-107) mmol/L Carbon Dioxide 34 H (22-30) mmol/L BUN 64 H (9-20) mg/dL Glucose 121 H (74-99) mg/dL POC Glucose (mg/dL) 153 H (75-99) mg/dL Calcium 7.6 L (8.4-10.2) mg/dL Ionized Calcium Guille 4.4 L (4.5-5.3) mg/dL Magnesium 2.9 H (1.6-2.3) mg/dL Total Protein 5.1 L (6.3-8.2) g/dL Albumin 2.3 L (3.5-5.0) g/dL 10/15/16 Range/Units 11:52 RBC (4.30-5.90) m/uL Hgb (13.0-17.5) gm/dL Hct (39.0-53.0) % RDW (11.5-15.5) % Lymphocytes # (1.0-4.8) k/uL PT (9.0-12.0) sec ABG pH (7.35-7.45) ABG pO2 (83-108) mmHg ABG HCO3 (21-25) mmol/L ABG Total CO2 (19-24) mmol/L Sodium (137-145) mmol/L Chloride (98-107) mmol/L Carbon Dioxide (22-30) mmol/L BUN (9-20) mg/dL Glucose (74-99) mg/dL POC Glucose (mg/dL) 139 H (75-99) mg/dL Calcium (8.4-10.2) mg/dL Ionized Calcium Guille (4.5-5.3) mg/dL Magnesium (1.6-2.3) mg/dL Total Protein (6.3-8.2) g/dL Albumin (3.5-5.0) g/dL Microbiology - Last 24 Hours (Table) 10/11/16 06:40 Blood Culture - Preliminary Blood No Growth after 96 hours Assessment and Plan (1) Acute renal failure Status: Acute (2) Acute respiratory failure Status: Acute (3) Status post aortic valve replacement Status: Acute (4) Status post mitral valve repair Status: Acute (5) Atrial fibrillation with RVR Status: Acute (6) Congestive heart failure due to valvular disease Status: Acute Plan: Overall clinical status is relatively stable. Chest x-ray shows some or infiltrates. Heart rate is a little slower. We had cut back on the beta blockers and digoxin. Patient is having surgery to close the dehiscence of the sternum. Prognosis is guarded.
--- NOTE | 2016-10-15 17:05 | XR ---
EXAMINATION TYPE: XR chest 1V portable DATE OF EXAM: 10/15/2016 5:00 PM COMPARISON: 10/15/2016 INDICATION: Postop TECHNIQUE: Single frontal view of the chest is obtained. FINDINGS: The heart size is normal. The pulmonary vasculature is normal. There is mild infiltrate at the right base. Small right pleural effusion is present. Large catheters overlie the chest. Endotracheal tube is present in the midline above the linwood. Nasogastric tube tra nsverses the thorax. Left-sided chest tube is present. Catheter enters on the left with tip in the rodríguez perior vena cava region. IMPRESSION: 1. Small right pleural effusion. 2. Diminished left pleural effusion. 3. Mild right lower lobe infiltrate. 4. Multiple lines and catheters discussed above
[2016-10-15 17:23] LABS: Glucose,Whole Blood 109 mg/dL (75-99)
[2016-10-15] MEDS: SENNOSIDES 8.6 MG TAB PO SCH (21:02)
[2016-10-15 21:06] LABS: Glucose,Whole Blood 112 mg/dL (75-99)
[2016-10-16 01:35] LABS: Glucose,Whole Blood 139 mg/dL (75-99)
[2016-10-16] MEDS: INSULIN LISPRO (humaLOG) 300 UNIT/3 ML VIAL SQ SCH ×6 (02:21→20:21)
[2016-10-16] MEDS: HEPARIN SODIUM,PORCINE 5,000 UNIT/ML 1 ML VIAL SQ SCH ×3 (02:21→18:00)
[2016-10-16] MEDS: LEVALBUTEROL NEB (CONC) 1.25 MG/0.5 ML AMP INHALATION SCH ×6 (03:23→23:48)
[2016-10-16] MEDS: IPRATROPIUM 0.5 MG/2.5 ML NEBU INHALATION SCH ×6 (03:23→23:48)
[2016-10-16 04:21] LABS: Glucose,Whole Blood 137 mg/dL (75-99)
[2016-10-16] MEDS: PIPERACILLIN-TAZOBACTAM 3.375 GM in DEXTROSE/WATER 1 50ML.BAG IVPB SCH ×3 (04:24→20:12)
[2016-10-16] MEDS: PROPOFOL 500 MG in EMPTY BAG 1 BAG IV SCH ×4 (04:25→08:40)
[2016-10-16 04:47] LABS: Anisocytosis Slight; Basophils % (A) 0 %; CH 29.9; Eosinophils # (A) 0.3 k/uL (0-0.7); Eosinophils % (A) 2 %; HCT 28.3 % (39.0-53.0); HDW 4.01; HGB 8.9 gm/dL (13.0-17.5); Hypochromasia Marked; Luc # (Auto) 0.13; Luc % (Auto) 1; Lymphocytes # (A) 0.7 k/uL (1.0-4.8); Lymphocytes % (A) 6 %; MCH 30.9 pg (25.0-35.0); MCHC 31.7 g/dL (31.0-37.0); MCV 97.5 fL (80.0-100.0); Macrocytosis Slight; Mean Platelet Volume 8.7; Monocytes # (A) 0.5 k/uL (0-1.0); Monocytes % (A) 4 %; Neutrophils # (A) 10.7 k/uL (1.3-7.7); Neutrophils % (A) 87 %; Poikilocytosis Moderate; RDW 18.8 % (11.5-15.5); WBC 12.3 k/uL (3.8-10.6); WBC (Perox) 12.43
[2016-10-16 04:53] LABS: INR 1.2 (<1.1); Prothrombin Time 11.8 sec (9.0-12.0)
[2016-10-16 05:07] LABS: ALT 36 U/L (21-72); AST 26 U/L (17-59); Alkaline Phosphatase 63 U/L (38-126); Anion Gap 8 mmol/L; Blood Urea Nitrogen 62 mg/dL (9-20); Calcium 7.6 mg/dL (8.4-10.2); Carbon Dioxide 31 mmol/L (22-30); Chloride 110 mmol/L (98-107); Glucose 132 mg/dL (74-99); Non-African American GFR(MDRD) 54 (>60 ml/min/1.73 sqM); Phosphorous 4.9 mg/dL (2.5-4.5); Potassium 3.9 mmol/L (3.5-5.1); Sodium 149 mmol/L (137-145); Total Bilirubin 0.9 mg/dL (0.2-1.3); Total Protein 5.1 g/dL (6.3-8.2)
[2016-10-16 05:35] LABS: ABG Base Excess 5.3 mmol/L; ABG HCO3 29 mmol/L (21-25); ABG PCO2 41 mmHg (35-45); ABG PH 7.46 (7.35-7.45); ABG PO2 101 mmHg (83-108); ABG TCO2 30 mmol/L (19-24)
[2016-10-16] MEDS ORDERED: POTASSIUM CHLORIDE ORAL LIQUID 40 MEQ/30 ML CUP NG-TUBE SCH (06:00)
[2016-10-16] MEDS: AMIODARONE 200 MG TAB PO SCH ×2 (06:59→18:04)
[2016-10-16] MEDS: VANCOMYCIN 2,000 MG in DEXTROSE 5% IN WATER 500 ML IVPB SCH ×2 (07:00)
[2016-10-16] MEDS: LEVOTHYROXINE 75 MCG TAB PO SCH (07:01)
--- NOTE | 2016-10-16 07:51 | XR ---
EXAMINATION TYPE: XR chest 1V portable DATE OF EXAM: 10/16/2016 7:03 AM COMPARISON: 10/15/2016 INDICATION: Postsurgical evaluation. TECHNIQUE: Single frontal view of the chest is obtained Semiupright position FINDINGS: The heart size is mildly prominent. The pulmonary vasculature is normal. There is mild increased opacity over the right lung compared to the left. Left-sided chest tube is pr esent. There are catheters present bilaterally over the chest. Sternotomy surgical clips are present. An endotracheal tube is present with tip above the linwood. Nasogastric tube is present. Distal tip a ppears to be within the left upper quadrant. IMPRESSION: 1. Small right pleural effusion may be present. 2. Lines and catheters discussed above.
[2016-10-16 08:44] LABS: Glucose,Whole Blood 186 mg/dL (75-99)
[2016-10-16] MEDS: DIGOXIN 250 MCG/ML 2 ML AMP IVP SCH (08:44)
[2016-10-16] MEDS: LACTATED RINGERS 1,000 ML IV SCH (08:44)
[2016-10-16] MEDS: METOPROLOL TARTRATE 25 MG TAB PO SCH ×2 (08:44→20:21)
[2016-10-16] MEDS: DOCUSATE ORAL SOLN 100 MG/10 ML CUP PO SCH (08:45)
[2016-10-16] MEDS: CHLORHEXIDINE GLUCONATE 15 ML CUP MUCOUS MEM SCH ×2 (08:48→20:09)
[2016-10-16] MEDS: ASPIRIN 81 MG CHEW PO SCH (08:49)
[2016-10-16] MEDS: PANTOPRAZOLE 40 MG/10 ML VIAL IVP SCH (08:49)
--- NOTE | 2016-10-16 11:00 | OP ---
DATE OF SERVICE: 10/15/2016 SURGEON: SHIMA PERALTA MD RETAIL SHIFT LEADER: PREOPERATIVE DIAGNOSIS: Sternal dehiscence. POSTOPERATIVE DIAGNOSIS: Sternal dehiscence. OPERATION: Sternal exploration due to sternal debridement and wound closure with bilateral pectoralis major myocutaneous advancement flaps. Also placement of left chest tube for left pleural effusion. This is a separate procedure for a separate diagnosis. ANESTHESIA: ESTIMATED BLOOD LOSS: SPECIMENS REMOVED: COMPLICATIONS: OPERATIVE FINDINGS: BRIEF HISTORY: Patient is a 71-year-old male who is 3 weeks status post cardiac surgery with aortic valve replacement, mitral valve repair and coronary artery bypass grafting. His postoperative course was relatively uneventful. He had some atrial fibrillation. He was discharged home approximately 10 days postoperatively. At the time of his discharge he was in good condition with intact sternal wound. He was ambulating and off of oxygen. Two days after discharge in the evening, the patient had a witnessed seizure. He was brought to the emergency room by his family, he was noted to be postictal. He was worked up. He developed sepsis and was admitted to the ICU and placed on antibiotics. He was noted to have sternal wound dehiscence, which was presumably secondary to myoclonic forces during the grand mal seizure. His sternal remained intact and without evidence of underlying infection. He did develop a left pleural effusion while in the hospital. After being stabilized, plans were made for sternal exploration and wound closure with possible rewiring and possible myocutaneous flaps. OPERATIVE PROCEDURE: Patient was brought to the operating room, placed supine on the operating table. The anterior chest was sterilely prepped and draped. The patient was already intubated and general anesthesia had been induced. Midline sternotomy wound was reopened and upon getting through the subcutaneous tissue, there was a large volume of serosanguineous fluid that was evacuated from the subcutaneous space in direct continuity with the mediastinal space. The sternum was completely dehisced under the subcutaneous tissue. The manubrial wires had pulled through the left and were still intact on the right and the sternal body wires had pulled through the right and were still intact on the left. The wires were removed and the edges of the sternum debrided. There was no evidence of infection. There was a large amount of fibrinous material present along with some small amount of old clot. This was all debrided out from both this region of the sternum and from the mediastinum. Cultures were sent of the fluid and of the tissue. Once we had debrided back all of the tissue, having clearly identified no necrotic bone and no evidence of acute infection, we decided to close this with myocutaneous flaps as rewiring the sternum, which was now in multiple pieces on both sides seemed to be unrealistic. Bilateral pectoralis major advancement flaps were created by immobilizing the pectoralis major off the chest and the off its insertion on the sternum and costal cartilages. Bilateral 19 [place]i Maulik drains were placed between the muscle and the chest wall and brought out through separate stab incisions and secured with 0 silk sutures. A third Maulik drain was placed in the mediastinum and brought out inferiorly and again secured with an 0 silk suture. The edges of the muscle flaps had been debrided clean and we now closed the muscle in the midline with interrupted [id number] of 0 Vicryl. The subcutaneous tissue was closed with 2-0 Vicryl and the skin with skin clips. On the completion of the procedure, a left pleural chest tube was placed through separate stab incision and serous sanguinous fluid was identified in the left pleural space as well. This was connected to a Pleur-evac and secured with an 0 Ethibond suture. Dry sterile dressings were applied and the patient was transferred back to the ICU.
[2016-10-16 12:37] LABS: Glucose,Whole Blood 159 mg/dL (75-99)
--- NOTE | 2016-10-16 12:55 | P.PN ---
<Orion Quiroz Lewis - Last Filed: 10/16/16 12:36> Progress Note - Text CV Surgery Nursing Principal diagnosis: Acute hypoxic respiratory failure requiring mechanical ventilation, present on admission. Sputum culture positive for Haemophilus influenza, serratia marcescens. Currently on Zosyn, vancomycin. Infectious disease following. CAT scan of the chest on 10/09/16 demonstrated dehiscence of sternal wires, an unexpected postsurgical condition related to the patient's underlying comorbidities. Left pleural effusion. POD #19 aortic valve replacement, mitral valve repair, modified Frederick maze, mediastinal lymph node biopsy. POD #1 sternal exploration due to sternal debridement and wound closure with bilateral pectoralis major myocutaneous advancement flaps. POD #1 placement of left chest tube for left pleural effusion. Remains sedated on mechanical ventilation support. He is currently sedated on Diprivan drip at 20 mcg/kg/m. Following some simple commands appropriately. Vital Signs: Afebrile Vital Signs - 24 hr 10/15/16 10/15/16 10/15/16 13:00 13:30 16:00 Temperature Pulse Rate 51 L 55 L Respiratory 12 17 13 Rate Blood Pressure O2 Sat by Pulse 98 97 100 Oximetry 10/15/16 10/15/16 10/15/16 16:23 16:30 16:49 Temperature Pulse Rate 57 L 57 L 56 L Respiratory 14 16 Rate Blood Pressure O2 Sat by Pulse 100 98 Oximetry 10/15/16 10/15/16 10/15/16 17:00 17:03 17:30 Temperature Pulse Rate 57 L 57 L 57 L Respiratory 13 13 Rate Blood Pressure O2 Sat by Pulse 100 99 Oximetry 10/15/16 10/15/16 10/15/16 18:00 18:30 19:00 Temperature Pulse Rate 59 L 60 61 Respiratory 15 16 15 Rate Blood Pressure O2 Sat by Pulse 98 99 99 Oximetry 10/15/16 10/15/16 10/15/16 19:30 20:00 20:30 Temperature 97.8 F Pulse Rate 61 62 62 Respiratory 15 15 15 Rate Blood Pressure O2 Sat by Pulse 100 100 100 Oximetry 10/15/16 10/15/16 10/15/16 20:39 20:52 21:00 Temperature Pulse Rate 61 62 62 Respiratory 14 Rate Blood Pressure O2 Sat by Pulse 100 Oximetry 10/15/16 10/15/16 10/15/16 21:30 22:00 22:30 Temperature Pulse Rate 63 64 64 Respiratory 15 17 17 Rate Blood Pressure O2 Sat by Pulse 100 100 100 Oximetry 10/15/16 10/15/16 10/16/16 23:00 23:57 00:00 Temperature 98.7 F Pulse Rate 64 65 65 Respiratory 17 14 Rate Blood Pressure O2 Sat by Pulse 99 100 Oximetry 10/16/16 10/16/16 10/16/16 00:06 01:00 02:00 Temperature Pulse Rate 64 65 65 Respiratory 17 18 Rate Blood Pressure O2 Sat by Pulse 99 100 Oximetry 10/16/16 10/16/16 10/16/16 03:00 03:58 04:00 Temperature 98 F Pulse Rate 65 65 65 Respiratory 17 19 Rate Blood Pressure O2 Sat by Pulse 97 97 Oximetry 10/16/16 10/16/16 10/16/16 05:00 06:00 07:00 Temperature Pulse Rate 65 65 64 Respiratory 23 17 17 Rate Blood Pressure 100/55 O2 Sat by Pulse 97 96 97 Oximetry 10/16/16 10/16/16 10/16/16 07:35 08:00 08:07 Temperature 98.0 F Pulse Rate 63 62 61 Respiratory 13 Rate Blood Pressure 100/55 O2 Sat by Pulse 98 Oximetry 10/16/16 10/16/16 10/16/16 09:00 10:00 11:00 Temperature Pulse Rate 62 61 64 Respiratory 20 16 17 Rate Blood Pressure O2 Sat by Pulse 98 97 98 Oximetry 10/16/16 10/16/16 10/16/16 11:55 12:00 12:05 Temperature 97.8 F Pulse Rate 67 67 67 Respiratory 14 Rate Blood Pressure O2 Sat by Pulse 96 Oximetry ABP, PAP, CO, CI - Last 8 Hours Arterial Blood Pressure 125/56 Arterial Blood Pressure 115/54 Arterial Blood Pressure 101/50 Arterial Blood Pressure 111/52 Arterial Blood Pressure 89/45 Arterial Blood Pressure 100/50 Arterial Blood Pressure 95/44 Arterial Blood Pressure 118/55 Labs: Short CBC 10/16/16 Range/Units 04:15 WBC 12.3 H (3.8-10.6) k/uL Hgb 8.9 L (13.0-17.5) gm/dL Hct 28.3 L (39.0-53.0) % Plt Count 175 (150-450) k/uL Neutrophils # 10.7 H (1.3-7.7) k/uL BMP 10/16/16 04:15 Sodium 149 H Potassium 3.9 Chloride 110 H Carbon Dioxide 31 H BUN 62 H Creatinine 1.30 H Glucose 132 H Calcium 7.6 L Liver Function 10/16/16 Range/Units 04:15 Total Bilirubin 0.9 (0.2-1.3) mg/dL AST 26 (17-59) U/L ALT 36 (21-72) U/L Alkaline Phosphatase 63 (38-126) U/L Albumin 2.4 L (3.5-5.0) g/dL ABG ABG pH 7.46 (7.35-7.45) H 10/16/16 04:45 ABG pCO2 41 mmHg (35-45) 10/16/16 04:45 ABG pO2 101 mmHg (83-108) 10/16/16 04:45 ABG O2 Saturation 98.0 % (94-97) H 10/16/16 04:45 PT/INR, D-dimer PT 11.8 sec (9.0-12.0) 10/16/16 04:15 INR 1.2 (<1.1) 10/16/16 04:15 D-Dimer 6.31 mg/L FEU (<0.60) H 10/06/16 21:00 IV Fluids: Lactated Ringer's at 20 mL per hour Diprivan drip at 20 mcg/m. Lungs: Few scattered rhonchi throughout, diminished bilateral bases. Respirations are unlabored with mechanical ventilator support. Current ventilator settings are as follows: AC 14, TV 500, FiO2 50%, PEEP 8. O2 sat: 98% on 50% FiO2 with mechanical ventilator support. Heart: S1S2, regular rhythm and rate, negative for S3, gallop or murmur. Bedside telemetry showing normal sinus rhythm heart rate 62. Chest incision clean with dressing clean and dry. MEGHAN drains in place draining serosanguineous drainage. Right chest MEGHAN drain with 40 mL output in the last 8 hours, 70 mL output since surgery. The mid chest MEGHAN drain draining serosanguineous drainage. 150 mL output in the last 8 hours, 305 mL output since surgery. Left chest MEGHAN drain draining thin serosanguineous drainage. 20 mL output in the last 8 hours, 40 mL output since surgery. Heart hugger in place to chest. Abdomen: Soft, Positive bowel sounds present in all 4 quadrants. Patient remained nothing by mouth for possible extubation. CBGs: 112-186 mg/dL in the last 24 hours. U/O: Adequate. Duong catheter for accurate I&O. 495 milliliters output in the last 8 hours. Chest Tubes: Left pleural chest tube without air leak, draining thin serosanguineous drainage. 150 mL output in the last 8 hours, 790 mL output since surgery. 24 hr Total: Intake & Output 10/14/16 10/15/16 10/16/16 10/17/16 06:59 06:59 06:59 06:59 Intake Total 2536.180 2295.428 1134.363 189.120 Output Total 2785 1840 3340 370 Balance -248.820 455.428 -2205.637 -180.880 Weight 118.6 kg 121.8 kg 112.2 kg Active Medications Amiodarone HCl (Cordarone) 400 mg PO BID@0600,1800 [facility] Last Admin: 10/16/16 06:59 Dose: 400 mg Aspirin (Aspirin) 81 mg PO DAILY [facility] Last Admin: 10/16/16 08:49 Dose: 81 mg Chlorhexidine Gluconate (Peridex) 15 ml MUCOUS MEM BID [facility] Last Admin: 10/16/16 08:48 Dose: 15 ml Digoxin (Lanoxin) 125 mcg IVP DAILY [facility] Last Admin: 10/16/16 08:44 Dose: Not Given Heparin Sodium (Porcine) (Heparin) 5,000 unit SQ Q8HR [facility] Last Admin: 10/16/16 08:41 Dose: 5,000 unit Piperacillin/Tazobactam/ (Dextrose 3.375 gm/ IV Solution) 50 mls @ 12.5 mls/hr IVPB Q8H [facility] Last Admin: 10/16/16 04:24 Dose: 12.5 mls/hr Propofol 500 mg/ IV Solution 50 mls @ 0 mls/hr IV .Q0M [facility]; Titrate PRN Reason: Protocol Last Titration: 10/16/16 10:16 Dose: 0 mcg/kg/min, 0 mls/hr Lactated Ringer's (Lactated Ringers) 1,000 mls @ 20 mls/hr IV .Q24H [facility] Last Admin: 10/16/16 08:44 Dose: 20 mls/hr Ibuprofen (Motrin Oral Susp Cup) 600 mg PO Q6H PRN PRN Reason: Fever and/or Mild Pain Last Admin: 10/11/16 02:21 Dose: 600 mg Insulin Human Lispro (Humalog) 0 unit SQ Q4H [facility] PRN Reason: Protocol Last Admin: 10/16/16 08:43 Dose: 2 unit Ipratropium [place] (Atrovent Nebulized) 0.5 mg INHALATION RT-Q4H [facility] Last Admin: 10/16/16 11:53 Dose: 0.5 mg Levalbuterol HCl (Xopenex Nebulized (Conc)) 1.25 mg INHALATION RT-Q4H [facility] Last Admin: 10/16/16 11:53 Dose: 1.25 mg Levothyroxine Sodium (Synthroid) 150 mcg PO DAILY@0630 [facility] Last Admin: 10/16/16 07:01 Dose: 150 mcg Metoprolol Tartrate (Lopressor) 25 mg PO BID [facility] Last Admin: 10/16/16 08:44 Dose: Not Given Miscellaneous Information (Potassium Per Protocol) 1 each MISCELLANE DAILY PRN ; Protocol PRN Reason: Per Protocol Miscellaneous Information (Magnesium Per Protocol) 1 each MISCELLANE DAILY PRN ; Protocol PRN Reason: Per Protocol Miscellaneous Information (Phosphorus Per Protocol) 1 each MISCELLANE DAILY PRN ; Protocol PRN Reason: Per Protocol Miscellaneous Information (Vancomycin Trough Due) 0 each MISCELLANE DIRECTED ONE Stop: 10/17/16 05:01 Pantoprazole Sodium (Protonix) 40 mg IVP DAILY [facility] Last Admin: 10/16/16 08:49 Dose: 40 mg Sodium Chloride (Saline Flush) 20 ml IV Q4HR PRN PRN Reason: PICC Line Sodium Chloride (Saline Flush) 10 ml IV WEEKLY [facility] Plan: 1. Continue aspirin, Lopressor, digoxin, heparin sc. 2. Continue amiodarone 400 mg PO BID, for A. fib prophylaxis. 3. Continue antibiotics per infectious disease. 4. Ventilator management per pulmonology, okay to wean to extubate. Pulmonary and ventilator management per Dr. Armando's recommendations. 5. Daily labs, x-rays 6. Diabetic management per internal medicine service. 7. MEGHAN drains will remain in place as well as left pleural chest tube today. We will continue to monitor drainage. 8. Strict I/O, daily weights. 9. More recommendations as patient progresses. <Brant Crawford - Last Filed: 10/19/16 11:51> Progress Note - Text The patient was seen and examined. I agree with the above assessment and plan. He underwent revision of his sternal wound with advancement of pectoralis muscle flaps yesterday by Dr. Riggs.'s morning he remains on the ventilator. We will try to have him extubated today. Otherwise we'll continue with antibiotics as directed by infectious disease. He is currently in normal sinus rhythm.
--- NOTE | 2016-10-16 14:53 | PN ---
CRITICAL CARE TIME: 36 minutes. This is a very complicated case. This is a 71-year-old patient who has been in the ICU for a number of days. He unfortunately developed a sternal dehiscence following his open heart procedure. He went back to the operating room yesterday for a sternal flap. That was done by Dr. Riggs. Anyway, he is status post mitral valve repair. He looks stable this morning. The patient was still on Diprivan at 10 mcg/kg per minute. Getting LR IV at just KVO basically. Tube feeds are currently off. He is postoperative day #1 status post flap. Anyway, the patient is going to come off the Diprivan, we are going to evaluate the patient for a spontaneous breathing trial. We are hopefully we get him extubated today. We did ask cardiothoracic surgery if there was any contraindication to taking him off the ventilator and they said no. Anyway, the patient hopefully we will be able to be extubated today. Currently, his vent settings include the assist-control mode rate of 14, tidal volume 500, FiO2 of 50%, PEEP of 8. I dropped the PEEP to 5. Gases show a pO2 of 101, a pCO2 of 41 and a pH of 7.46. Again he is on the LR at 20 mL an hour. Diprivan I asked the nurse to turn off. Chest x-ray only shows a small right pleural effusion. Current vital signs include temperature 98, heart rate 61, respiratory rate 16, blood pressure 101/50, mean is excellent, saturations are 97% on the 50% and 8 of PEEP. Appears in no acute distress, currently sedated. HEENT examination is grossly unremarkable. Endotracheal tube in place. NG tube in place. Oral mucosa is moist. Neck is supple. Full range of motion. No adenopathy or thyromegaly. Neck veins are flat. Cardiovascular examination reveals regular rhythm and rate. S1, S2 normal. No S3, S4 or murmur. Lungs reveal a few scattered rhonchi. No wheezes or crackles. Breath sounds are equal. Abdomen is soft. Bowel sounds are heard. Extremities are intact. No cyanosis, clubbing or edema. Skin without rash or lesion. Neurologic examination is unable to be evaluated at this time. Labs are reviewed. White count 12.3, hemoglobin 8.9, hematocrit 28.3, platelet count was normal. PT, INR was 11.8 and 1.2 respectively. Blood gases have been noted. Sodium 149, potassium 3.9, chloride is 110, CO2 of 31, BUN and creatinine were 62 and 1.30. Albumin 2.4. Microbiology apparently was showing some Haemophilus and influenza in the sputum done on October 06. Chest x-ray was evaluated. Medications are reviewed. He is on Cordarone orally, aspirin, Dulcolax, chlorhexidine, digoxin, Colace, hydrocodone, which actually can be discontinued because he is not taking anything by mouth, subQ heparin, insulin, ibuprofen oral, Atrovent updrafts, lactated Ringers, Xopenex updraft, levothyroxine, magnesium replacement, metoprolol, Protonix, phosphorus replacement, Zosyn, potassium chloride, the propofol which is placed on hold and vancomycin. The Serratia is sensitive to pip/tazo and I do not see sensitivities for the Haemophilus. ASSESSMENT: 1. Prolonged postoperative respiratory failure, status post mitral valve repair in a patient who developed sternal dehiscence, status post sternal flap postoperative day #1. 2. Acute respiratory failure. 3. Purulent tracheobronchitis/bronchopneumonia secondary to Serratia marcescens and Haemophilus influenzae. 4. Paroxysmal atrial fibrillation. 5. Hypothyroidism. 6. Essential hypertension. 7. Hyperlipidemia. 8. Congestive heart failure secondary to valvular heart disease. 9. Failure to wean. PLAN: The patient's sedation will be held. Gases are excellent. PEEP was dropped from [address] him on PSV 5, CPAP of 5. Will get some weaning parameters including tidal volume, vital cap, respiratory rate and negative inspiratory force, minute volume. Will also do a RSVI maneuver and cuff leak. If everything looks good, will go ahead and extubate the patient. The patient's tube feeds are on hold. Additional recommendations and suggestions are forthcoming. Prognosis is guarded. Medications are reviewed. Critical care time as mentioned above is 36 to 37 minutes.
--- NOTE | 2016-10-16 16:33 | PN ---
DATE OF SERVICE: 10/16/2016 PRESENTING COMPLAINT: Thoracic surgery. INTERVAL HISTORY: This is a patient multiple medical problems, was in the OR yesterday. Had a pectoralis flap pulled across the chest. Three chest tubes are in place. Patient is on the ventilator with FIO2 of 50 and PEEP of 8. Endotracheal tube in place. REVIEW OF SYSTEMS: Patient intubated. Current medications are reviewed and include subcu heparin, nebulized bronchodilators, Synthroid, Lopressor, IV Zosyn and IV propofol. On examination, temperature 97.8, pulse 67, respirations 14, blood pressure 125/56, pulse ox 96% on ventilator. GENERAL APPEARANCE: Lying in bed, intubated. EYES: Pupils equal. Conjunctivae normal. HEENT: Endotracheal tube in place. NECK: JVD unable to assess. Mass not palpable. RESPIRATORY: Effort normal. LUNGS: Diminished breath sounds. CARDIOVASCULAR: First and second sounds normal. No edema. ABDOMEN: Soft, nontender. Liver and spleen not palpable. PSYCHIATRY: Unable to assess. NEUROLOGICAL: Pupils equal. Opens his eyes occasionally. INVESTIGATIONS: White count 12.3, hemoglobin 8.9, potassium 3.9. BUN 62, creatinine 1.30. ASSESSMENT: 1. Sternal workup ( ) pectoralis flap. 2. Acute hypoxic respiratory failure requiring intubation and mechanical ventilation secondary to cardiopulmonary edema also possibly sepsis. 3. Acute renal failure, probably acute tubular necrosis from hypoperfusion. 4. Atrial fibrillation with rapid ventricular initially. 5. 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 6. Bilateral pleural effusions, significant for congestive heart failure. 7. Sternal instability due to the wires, surgery as above. 8. Hypercholesterolemia. 9. Essential hypertension. 10. Hypothyroidism. 11. Obesity. 12. Primary osteoarthritis. 13. Thyroid gland from the previous surgery, now hypothyroid. 14. Moderate secondary pulmonary hypertension. 15. Gastroesophageal reflux disease. 16. Possibility of sepsis with source being central line. I did speak to Dr. Riggs. There was probably no evidence of any sternal osteomyelitis except there was stuff from old surgery. PLAN: Continue current medication and treatment plan. Supportive care. Antibiotics to continue. Prognosis guarded. Will follow.
--- NOTE | 2016-10-16 17:33 | P.PN ---
Subjective Principal diagnosis: Respiratory failure This is a 71-year-old male who came in the hospital on September 23 and underwent a JAYDE and heart catheterization showing a ruptured chordae tendonae, mitral regurgitation, moderate pulmonary hypertension, with history of paroxysmal atrial fibrillation and heart failure. 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 With this the patient was initiated to itraconazole. He however developed atrial fibrillation. Because of this he was initiated to amiodarone. The dose of itraconazole was reduced by 50%. There is no evidence of any ulcerations of the QT interval while he was in hospital. He eventually was discharged home. It is related that he was not able to obtain the itraconazole. In this is going to be addressed in the coming days. However the brought him to the emergency room feeling very short of breath. He was having abdominal distention with increasing shortness of breath. Through his stay in emergency center he continues to feel more more short of breath. He then developed respiratory failure which required intubation sedation mechanical ventilation. Over the following days he is improved was extubated this morning. He is certainly improved from the last evaluation. His extensive edema has improved. Especially the massive abdominal edema that he was having. Extremity edema is also improved. He is arousable but not conversational. Objective - Vital Signs Vital signs: Vital Signs Temp 97.8 F 10/16/16 12:00 Pulse 71 10/16/16 15:50 Resp 14 10/16/16 14:00 BP 100/55 10/16/16 08:00 Pulse Ox 95 10/16/16 14:00 Intake & Output 10/15/16 10/16/16 10/16/16 18:59 06:59 18:59 Intake Total 708.140 426.223 215.120 Output Total 2215 1125 660 Balance -1506.860 -698.777 -444.880 Weight 121.8 kg 112.2 kg Intake: IV 607 326 164 Lactated Ringers 1,000 ml 180 240 140 @ 20 mls/hr IV .Q24H [facility] Rx#:[id number] Piperacillin-Tazobactam 3 50 .375 gm In Dextrose/Water 1 50ml.bag @ 12.5 mls/hr IVPB Q8H [facility] Rx#: [id number] Pressure Bag 27 36 24 Intake, IV Titration 101.140 100.223 51.120 Amount Propofol 500 mg In Empty 101.140 100.223 51.120 Bag 1 bag @ Titrate IV . Q0M [facility] Rx#:[id number] Tube Feeding 0 0 Output: Chest Tube Drainage 600 130 110 LEFT PLEURAL 600 130 110 Drainage 120 280 160 Left Lateral Chest 0 40 50 Medial Chest 100 205 60 Right Lateral Chest 20 35 50 Urine 1395 715 390 Estimated Blood Loss 100 Other: Voiding Method Indwelling Catheter Indwelling Catheter # Bowel Movements 1 ABP, PAP, CO, CI - Last Documented Arterial Blood Pressure 129/54 - Exam This is a 71-year-old male. Extubated and comfortable HEENT: Head is atraumatic, normocephalic. Pupils equal, round. Sclerae is anicteric. Conjunctiva slightly pale. Mucous membranes of the mouth are moist. No thrush noted. NECK: Supple. No JVD. No lymphadenopathy. No thyromegaly. LUNGS: There is symmetrical air entry. There are bibasal crackles. No significant bronchial sounds. HEART: Irregular with no no murmur Dressing on sternal wound with no breakthrough bleeding or drainage. Right sided pleural chest tube in place. ABDOMEN: Distinctly distended. Few bowel sounds are noted. Organomegaly is not detected. EXTREMITIES: +1 bilateral pedal edema. No calf tenderness. ORLIN hose in place. NEUROLOGICAL: Arousable response to yes and no questions moves both arms and legs Skin :patient has an extensive dressing to the chest or there was difficulty with the dehiscence. - Labs CBC & Chem 7: 10/16/16 04:15 10/16/16 04:15 Labs: Abnormal Lab Results - Last 24 Hours (Table) 10/14/16 10/15/16 10/16/16 Range/Units 13:52 21:05 01:33 WBC (3.8-10.6) k/uL RBC (4.30-5.90) m/uL Hgb (13.0-17.5) gm/dL Hct (39.0-53.0) % RDW (11.5-15.5) % Neutrophils # (1.3-7.7) k/uL Lymphocytes # (1.0-4.8) k/uL ABG pH (7.35-7.45) ABG HCO3 (21-25) mmol/L ABG Total CO2 (19-24) mmol/L ABG O2 Saturation (94-97) % Sodium (137-145) mmol/L Chloride (98-107) mmol/L Carbon Dioxide (22-30) mmol/L BUN (9-20) mg/dL Creatinine (0.66-1.25) mg/dL Glucose (74-99) mg/dL POC Glucose (mg/dL) 112 H 139 H (75-99) mg/dL Calcium (8.4-10.2) mg/dL Phosphorus (2.5-4.5) mg/dL Magnesium (1.6-2.3) mg/dL Total Protein (6.3-8.2) g/dL Albumin (3.5-5.0) g/dL Crossmatch See Detail 10/16/16 10/16/16 10/16/16 Range/Units 04:15 04:15 04:17 WBC 12.3 H (3.8-10.6) k/uL RBC 2.90 L (4.30-5.90) m/uL Hgb 8.9 L (13.0-17.5) gm/dL Hct 28.3 L (39.0-53.0) % RDW 18.8 H (11.5-15.5) % Neutrophils # 10.7 H (1.3-7.7) k/uL Lymphocytes # 0.7 L (1.0-4.8) k/uL ABG pH (7.35-7.45) ABG HCO3 (21-25) mmol/L ABG Total CO2 (19-24) mmol/L ABG O2 Saturation (94-97) % Sodium 149 H (137-145) mmol/L Chloride 110 H (98-107) mmol/L Carbon Dioxide 31 H (22-30) mmol/L BUN 62 H (9-20) mg/dL Creatinine 1.30 H (0.66-1.25) mg/dL Glucose 132 H (74-99) mg/dL POC Glucose (mg/dL) 137 H (75-99) mg/dL Calcium 7.6 L (8.4-10.2) mg/dL Phosphorus 4.9 H (2.5-4.5) mg/dL Magnesium 3.0 H (1.6-2.3) mg/dL Total Protein 5.1 L (6.3-8.2) g/dL Albumin 2.4 L (3.5-5.0) g/dL Crossmatch 10/16/16 10/16/16 10/16/16 Range/Units 04:45 08:43 12:34 WBC (3.8-10.6) k/uL RBC (4.30-5.90) m/uL Hgb (13.0-17.5) gm/dL Hct (39.0-53.0) % RDW (11.5-15.5) % Neutrophils # (1.3-7.7) k/uL Lymphocytes # (1.0-4.8) k/uL ABG pH 7.46 H (7.35-7.45) ABG HCO3 29 H (21-25) mmol/L ABG Total CO2 30 H (19-24) mmol/L ABG O2 Saturation 98.0 H (94-97) % Sodium (137-145) mmol/L Chloride (98-107) mmol/L Carbon Dioxide (22-30) mmol/L BUN (9-20) mg/dL Creatinine (0.66-1.25) mg/dL Glucose (74-99) mg/dL POC Glucose (mg/dL) 186 H 159 H (75-99) mg/dL Calcium (8.4-10.2) mg/dL Phosphorus (2.5-4.5) mg/dL Magnesium (1.6-2.3) mg/dL Total Protein (6.3-8.2) g/dL Albumin (3.5-5.0) g/dL Crossmatch Microbiology - Last 24 Hours (Table) 10/15/16 14:40 Gram Stain - Preliminary Chest Wound Culture - Preliminary 10/15/16 14:40 Gram Stain - Preliminary Chest Tissue Culture - Preliminary 10/11/16 06:40 Blood Culture - Preliminary Blood No Growth after 120 hours 10/15/16 14:40 Gram Stain - Preliminary Chest Wound Culture - Preliminary 10/15/16 14:40 Anaerobic Culture - Preliminary Chest 10/15/16 14:40 Anaerobic Culture - Preliminary Chest 10/15/16 14:40 Anaerobic Culture - Preliminary Chest Laboratory Results WBC 12.3 k/uL (3.8-10.6) H 10/16/16 04:15 RBC 2.90 m/uL (4.30-5.90) L 10/16/16 04:15 Hgb 8.9 gm/dL (13.0-17.5) L 10/16/16 04:15 Hct 28.3 % (39.0-53.0) L 10/16/16 04:15 MCV 97.5 fL (80.0-100.0) 10/16/16 04:15 MCH 30.9 pg (25.0-35.0) 10/16/16 04:15 MCHC 31.7 g/dL (31.0-37.0) 10/16/16 04:15 RDW 18.8 % (11.5-15.5) H 10/16/16 04:15 Plt Count 175 k/uL (150-450) 10/16/16 04:15 Neutrophils % 87 % 10/16/16 04:15 Neutrophils % (Manual) 85.5 % 10/08/16 04:20 Band Neutrophils % 0.5 % 10/08/16 04:20 Lymphocytes % 6 % 10/16/16 04:15 Lymphocytes % (Manual) 5.5 % 10/08/16 04:20 Monocytes % 4 % 10/16/16 04:15 Monocytes % (Manual) 4.0 % 10/08/16 04:20 Eosinophils % 2 % 10/16/16 04:15 Eosinophils % (Manual) 3.0 % 10/08/16 04:20 Basophils % 0 % 10/16/16 04:15 Metamyelocytes % 1.0 % 10/08/16 04:20 Myelocytes % 0.5 % 10/08/16 04:20 Neutrophils # 10.7 k/uL (1.3-7.7) H 10/16/16 04:15 Neutrophils # (Manual) 16.2 k/uL (1.3-7.7) H 10/08/16 04:20 Lymphocytes # 0.7 k/uL (1.0-4.8) L 10/16/16 04:15 Lymphocytes # (Manual) 1.0 k/uL (1.0-4.8) 10/08/16 04:20 Monocytes # 0.5 k/uL (0-1.0) 10/16/16 04:15 Monocytes # (Manual) 0.8 k/uL (0-1.0) 10/08/16 04:20 Eosinophils # 0.3 k/uL (0-0.7) 10/16/16 04:15 Eosinophils # (Manual) 0.6 k/uL (0-0.7) 10/08/16 04:20 Basophils # 0.0 k/uL (0-0.2) 10/16/16 04:15 Nucleated RBCs 0 /100 WBC (0-0) 10/08/16 04:20 Manual Slide Review Performed 10/08/16 04:20 Large Platelets Present 10/06/16 21:00 Polychromasia Present 10/08/16 04:20 Hypochromasia Marked 10/16/16 04:15 Poikilocytosis Moderate 10/16/16 04:15 Poikilocytosis (manual Present 10/08/16 04:20 Anisocytosis Slight 10/16/16 04:15 Macrocytosis Slight 10/16/16 04:15 Ovalocytes Present 10/06/16 21:00 PT 11.8 sec (9.0-12.0) 10/16/16 04:15 INR 1.2 (<1.1) 10/16/16 04:15 APTT 47.0 sec (22.0-30.0) H 10/14/16 06:30 D-Dimer 6.31 mg/L FEU (<0.60) H 10/06/16 21:00 Sample Site [place] 10/16/16 04:45 ABG pH 7.46 (7.35-7.45) H 10/16/16 04:45 ABG pCO2 41 mmHg (35-45) 10/16/16 04:45 ABG pO2 101 mmHg (83-108) 10/16/16 04:45 ABG HCO3 29 mmol/L (21-25) H 10/16/16 04:45 ABG Total CO2 30 mmol/L (19-24) H 10/16/16 04:45 ABG O2 Saturation 98.0 % (94-97) H 10/16/16 04:45 ABG Base Excess 5.3 mmol/L 10/16/16 04:45 FiO2 50 % 10/16/16 04:45 Sodium 149 mmol/L (137-145) H 10/16/16 04:15 Potassium 3.9 mmol/L (3.5-5.1) 10/16/16 04:15 Chloride 110 mmol/L (98-107) H 10/16/16 04:15 Carbon Dioxide 31 mmol/L (22-30) H 10/16/16 04:15 Anion Gap 8 mmol/L 10/16/16 04:15 BUN 62 mg/dL (9-20) H 10/16/16 04:15 Creatinine 1.30 mg/dL (0.66-1.25) H 10/16/16 04:15 Est GFR (MDRD) Af Amer >60 (>60 ml/min/1.73 sqM) 10/16/16 04:15 Est GFR (MDRD) Non-Af 54 (>60 ml/min/1.73 sqM) 10/16/16 04:15 Glucose 132 mg/dL (74-99) H 10/16/16 04:15 POC Glucose (mg/dL) 159 mg/dL (75-99) H 10/16/16 12:34 POC Glu [employer] UMESH David Darling 10/16/16 12:[address] Glu mg/dL 120 mg/dL 10/07/16 05:18 Hemoglobin A1c 5.8 % (4.2-6.1) 10/07/16 05:18 Plasma Lactic Acid Samir 1.0 mmol/L (0.7-2.0) 10/07/16 05:18 Calcium 7.6 mg/dL (8.4-10.2) L 10/16/16 04:15 Ionized Calcium Guille 4.4 mg/dL (4.5-5.3) L 10/15/16 05:00 Phosphorus 4.9 mg/dL (2.5-4.5) H 10/16/16 04:15 Magnesium 3.0 mg/dL (1.6-2.3) H 10/16/16 04:15 Total Bilirubin 0.9 mg/dL (0.2-1.3) 10/16/16 04:15 AST 26 U/L (17-59) 10/16/16 04:15 ALT 36 U/L (21-72) 10/16/16 04:15 Alkaline Phosphatase 63 U/L (38-126) 10/16/16 04:15 Total Creatine Kinase 736 U/L (55-170) H 10/06/16 09:50 CK-MB (CK-2) 7.2 ng/mL (0.0-2.4) H* 10/06/16 09:50 CK-MB (CK-2) Rel Index 1.0 10/06/16 09:50 Troponin I 1.510 ng/mL (0.000-0.034) H* 10/06/16 09:50 NT-Pro-B Natriuret Pep 6520 pg/mL 10/06/16 09:50 Total Protein 5.1 g/dL (6.3-8.2) L 10/16/16 04:15 Albumin 2.4 g/dL (3.5-5.0) L 10/16/16 04:15 TSH 32.400 mIU/L (0.465-4.680) H 10/06/16 09:50 Free T4 0.88 ng/dL (0.78-2.19) 10/06/16 09:50 Urine Color Dark Yellow 10/06/16 18:30 Urine Appearance Cloudy (Clear) 10/06/16 18:30 Urine pH 5.0 (5.0-8.0) 10/06/16 18:30 Ur Specific [place] 1.018 (1.001-1.035) 10/06/16 18:30 Urine Protein Trace (Negative) H 10/06/16 18:30 Urine Glucose (UA) Negative (Negative) 10/06/16 18:30 Urine Ketones Negative (Negative) 10/06/16 18:30 Urine Blood Negative (Negative) 10/06/16 18:30 Urine Nitrite Negative (Negative) 10/06/16 18:30 Urine Bilirubin 1+ (Negative) H 10/06/16 18:30 Urine Urobilinogen 4.0 mg/dL (<2.0) 10/06/16 18:30 Ur Leukocyte Esterase Negative (Negative) 10/06/16 18:30 Urine WBC 10 /hpf (0-5) H 10/06/16 18:30 Ur Squamous Epith Cells 2 /hpf (0-4) 10/06/16 18:30 Calcium Oxalate Crystal Occasional /hpf (None) H 10/06/16 18:30 Amorphous Sediment Occasional /hpf (None) H 10/06/16 18:30 Hyaline Casts 79 /lpf (0-2) H 10/06/16 18:30 Urine Mucus Rare /hpf (None) H 10/06/16 18:30 Vancomycin Trough 11.4 ug/mL 10/13/16 08:23 Digoxin 1.6 ng/mL 10/12/16 06:54 Blood Type O Positive 10/14/16 13:52 Blood Type Recheck No 10/14/16 13:52 Antibody Screen NEGATIVE 10/14/16 13:52 Crossmatch See Detail 10/14/16 13:52 Transfuse Platelets 10/15/16 10/14/16 13:52 Spec Expiration Date 10/17/2016 - 235110/14/16 13:52 Microbiology 10/15/16 14:40 Chest Gram Stain - Preliminary 10/15/16 14:40 Chest Wound Culture - Preliminary 10/15/16 14:40 Chest Gram Stain - Preliminary 10/15/16 14:40 Chest Tissue Culture - Preliminary 10/11/16 06:40 Blood Blood Culture - Preliminary No Growth after 120 hours 10/15/16 14:40 Chest Gram Stain - Preliminary 10/15/16 14:40 Chest Wound Culture - Preliminary 10/15/16 14:40 Chest Anaerobic Culture - Preliminary 10/15/16 14:40 Chest Anaerobic Culture - Preliminary 10/15/16 14:40 Chest Anaerobic Culture - Preliminary 10/11/16 11:47 Catheter Tip Catheter Tip Culture - Final 10/06/16 10:00 Blood Blood Culture - Final No Growth after 144 hours 10/06/16 21:00 Sputum Gram Stain - Final 10/06/16 21:00 Sputum Sputum Culture - Final Haemophilus influenzae Serratia marcescens Assessment and Plan (1) Acute respiratory failure Narrative/Plan: 71-year-old male with history of thyroid cancer recently was hospitalized at which point in time was having difficulties with congestive heart failure. He was noted evidence of aortic valve insufficiency and mitral valve regurgitation. There is also some lymphadenopathy noted within the chest. As he was taken to the operating room and aortic valve replacement occurred as well as mitral valve repair. Biopsy of mediastinal lymph nodes also occurred. 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 Patient was initiated to itraconazole. He however developed atrial fibrillation and was placed on amiodarone and the itraconazole dose was reduced. Upon discharge he has not been able to continue the itraconazole. However is only been home for a very short period of time we developed the progressive shortness of breath. At admission he has extensive edema in his abdominal cavity as well as evidence of congestive heart failure. Concerns to pneumonia given his significant leukocytosis and antibiotic therapy was begun with piperacillin tazobactam and vancomycin. Sputum culture with Haemophilus and Serratia resistant to Unasyn susceptible to Zosyn. We Will Continue Zosyn, Plan Another 48 Hours Ongoing aggressive supportive care is continuing Cardiothoracic surgery is following after the reconstruction of the sternum, cultures are negative so far. No evidence of any infection Patient had extensive leukocytosis at admission. This is now improved. Has increased slightly now in the postoperative time frame and will be monitored. Continue current antibiotic therapy while cultures are in process. Status: Acute (2) Status post aortic valve replacement Status: Acute (3) Status post mitral valve repair Status: Acute (4) Histoplasmosis Status: Acute
[2016-10-16 18:00] LABS: Glucose,Whole Blood 143 mg/dL (75-99)
--- NOTE | 2016-10-16 18:00 | P.PN ---
Subjective Principal diagnosis: Status post open-heart surgery, respiratory failure, atrial fibrillation and CHF and sternal dehiscence This patient who had both aortic valve replacement and mitral valve repair is readmitted because of increasing shortness of breath, pulmonary infiltrates and possible CHF. Patient is also found to have sternal dehiscence. Patient had exploration and sternal debridement and wound closure with bilateral pectoralis major myocutaneous advancement flaps. Patient is extubated today. Patient is awake but appears to be frail and weak. Patient has poor cough reflex. His blood pressure is 108/50. Pulse rate is 72. Temperature 99.8. Objective - Vital Signs Vital signs: Vital Signs Temp 99.8 F H 10/16/16 16:00 Pulse 71 10/16/16 17:00 Resp 11 L 10/16/16 17:00 BP 100/55 10/16/16 08:00 Pulse Ox 95 10/16/16 17:00 Intake & Output 10/15/16 10/16/16 10/16/16 18:59 06:59 18:59 Intake Total 708.140 426.223 284.120 Output Total 2215 1125 990 Balance -1506.860 -698.777 -705.880 Weight 121.8 kg 112.2 kg Intake: IV 607 326 183 Lactated Ringers 1,000 ml 180 240 150 @ 20 mls/hr IV .Q24H [facility] Rx#:[id number] Piperacillin-Tazobactam 3 50 .375 gm In Dextrose/Water 1 50ml.bag @ 12.5 mls/hr IVPB Q8H [facility] Rx#: [id number] Pressure Bag 27 36 33 Intake, IV Titration 101.140 100.223 101.120 Amount IV Fluid Continuation 800 50.0 ml As IV .[facility] Rx #:[id number] Propofol 500 mg In Empty 101.140 100.223 51.120 Bag 1 bag @ Titrate IV . Q0M [facility] Rx#:[id number] Tube Feeding 0 0 Output: Chest Tube Drainage 600 130 110 LEFT PLEURAL 600 130 110 Drainage 120 280 290 Left Lateral Chest 0 40 100 Medial Chest 100 205 120 Right Lateral Chest 20 35 70 Urine 1395 715 590 Estimated Blood Loss 100 Other: Voiding Method Indwelling Catheter Indwelling Catheter Indwelling Catheter # Bowel Movements 1 ABP, PAP, CO, CI - Last Documented Arterial Blood Pressure 108/52 - Exam GENERAL EXAM: Patient is extubated HEENT: Normocephalic. Normal reaction of pupils, equal size, normal range of extraocular motion. No erythema or exudates in the throat. NECK: No masses, no nuchal rigidity. CHEST: No chest wall deformity. LUNGS: [Diminished breath sounds, scattered rhonchi HEART: Irregular heart rhythm ABDOMEN: No hepatosplenomegaly, normal bowel sounds, no guarding or rigidity. SKIN: No rashes CENTRAL NERVOUS SYSTEM: Sedated EXTREMITIES: No cyanosis, clubbing or edema. - Labs CBC & Chem 7: 10/16/16 04:15 10/16/16 04:15 Labs: Abnormal Lab Results - Last 24 Hours (Table) 10/14/16 10/15/16 10/16/16 Range/Units 13:52 21:05 01:33 WBC (3.8-10.6) k/uL RBC (4.30-5.90) m/uL Hgb (13.0-17.5) gm/dL Hct (39.0-53.0) % RDW (11.5-15.5) % Neutrophils # (1.3-7.7) k/uL Lymphocytes # (1.0-4.8) k/uL ABG pH (7.35-7.45) ABG HCO3 (21-25) mmol/L ABG Total CO2 (19-24) mmol/L ABG O2 Saturation (94-97) % Sodium (137-145) mmol/L Chloride (98-107) mmol/L Carbon Dioxide (22-30) mmol/L BUN (9-20) mg/dL Creatinine (0.66-1.25) mg/dL Glucose (74-99) mg/dL POC Glucose (mg/dL) 112 H 139 H (75-99) mg/dL Calcium (8.4-10.2) mg/dL Phosphorus (2.5-4.5) mg/dL Magnesium (1.6-2.3) mg/dL Total Protein (6.3-8.2) g/dL Albumin (3.5-5.0) g/dL Crossmatch See Detail 10/16/16 10/16/16 10/16/16 Range/Units 04:15 04:15 04:17 WBC 12.3 H (3.8-10.6) k/uL RBC 2.90 L (4.30-5.90) m/uL Hgb 8.9 L (13.0-17.5) gm/dL Hct 28.3 L (39.0-53.0) % RDW 18.8 H (11.5-15.5) % Neutrophils # 10.7 H (1.3-7.7) k/uL Lymphocytes # 0.7 L (1.0-4.8) k/uL ABG pH (7.35-7.45) ABG HCO3 (21-25) mmol/L ABG Total CO2 (19-24) mmol/L ABG O2 Saturation (94-97) % Sodium 149 H (137-145) mmol/L Chloride 110 H (98-107) mmol/L Carbon Dioxide 31 H (22-30) mmol/L BUN 62 H (9-20) mg/dL Creatinine 1.30 H (0.66-1.25) mg/dL Glucose 132 H (74-99) mg/dL POC Glucose (mg/dL) 137 H (75-99) mg/dL Calcium 7.6 L (8.4-10.2) mg/dL Phosphorus 4.9 H (2.5-4.5) mg/dL Magnesium 3.0 H (1.6-2.3) mg/dL Total Protein 5.1 L (6.3-8.2) g/dL Albumin 2.4 L (3.5-5.0) g/dL Crossmatch 10/16/16 10/16/16 10/16/16 Range/Units 04:45 08:43 12:34 WBC (3.8-10.6) k/uL RBC (4.30-5.90) m/uL Hgb (13.0-17.5) gm/dL Hct (39.0-53.0) % RDW (11.5-15.5) % Neutrophils # (1.3-7.7) k/uL Lymphocytes # (1.0-4.8) k/uL ABG pH 7.46 H (7.35-7.45) ABG HCO3 29 H (21-25) mmol/L ABG Total CO2 30 H (19-24) mmol/L ABG O2 Saturation 98.0 H (94-97) % Sodium (137-145) mmol/L Chloride (98-107) mmol/L Carbon Dioxide (22-30) mmol/L BUN (9-20) mg/dL Creatinine (0.66-1.25) mg/dL Glucose (74-99) mg/dL POC Glucose (mg/dL) 186 H 159 H (75-99) mg/dL Calcium (8.4-10.2) mg/dL Phosphorus (2.5-4.5) mg/dL Magnesium (1.6-2.3) mg/dL Total Protein (6.3-8.2) g/dL Albumin (3.5-5.0) g/dL Crossmatch Microbiology - Last 24 Hours (Table) 10/15/16 14:40 Gram Stain - Preliminary Chest Wound Culture - Preliminary 10/15/16 14:40 Gram Stain - Preliminary Chest Tissue Culture - Preliminary 10/11/16 06:40 Blood Culture - Preliminary Blood No Growth after 120 hours 10/15/16 14:40 Gram Stain - Preliminary Chest Wound Culture - Preliminary 10/15/16 14:40 Anaerobic Culture - Preliminary Chest 10/15/16 14:40 Anaerobic Culture - Preliminary Chest 10/15/16 14:40 Anaerobic Culture - Preliminary Chest Assessment and Plan (1) Acute renal failure Status: Acute (2) Acute respiratory failure Status: Acute (3) Status post aortic valve replacement Status: Acute (4) Status post mitral valve repair Status: Acute (5) Atrial fibrillation with RVR Status: Acute (6) Congestive heart failure due to valvular disease Status: Acute Plan: Patient had surgery yesterday for close to the sternal dehiscence. She is extubated today. Overall vital signs are stable. Patient is frail and weak has poor cough reflex. We'll continue current medical therapy. We'll follow
[2016-10-16 20:17] LABS: Glucose,Whole Blood 133 mg/dL (75-99)
[2016-10-17 00:28] LABS: Glucose,Whole Blood 131 mg/dL (75-99)
[2016-10-17] MEDS: INSULIN LISPRO (humaLOG) 300 UNIT/3 ML VIAL SQ SCH ×7 (00:29→23:35)
[2016-10-17] MEDS: HEPARIN SODIUM,PORCINE 5,000 UNIT/ML 1 ML VIAL SQ SCH ×4 (00:30→23:35)
[2016-10-17] MEDS: IPRATROPIUM 0.5 MG/2.5 ML NEBU INHALATION SCH ×5 (03:21→20:22)
[2016-10-17] MEDS: LEVALBUTEROL NEB (CONC) 1.25 MG/0.5 ML AMP INHALATION SCH ×5 (03:21→20:22)
[2016-10-17 04:16] LABS: Glucose,Whole Blood 125 mg/dL (75-99)
[2016-10-17] MEDS: PIPERACILLIN-TAZOBACTAM 3.375 GM in DEXTROSE/WATER 1 50ML.BAG IVPB SCH ×3 (04:16→20:35)
[2016-10-17 04:35] LABS: Anisocytosis Slight; Basophils % (A) 0 %; CH 30.3; Eosinophils # (A) 0.3 k/uL (0-0.7); Eosinophils % (A) 3 %; HCT 27.9 % (39.0-53.0); HDW 4.01; HGB 8.8 gm/dL (13.0-17.5); Hypochromasia Marked; Luc # (Auto) 0.13; Luc % (Auto) 1; Lymphocytes # (A) 0.8 k/uL (1.0-4.8); Lymphocytes % (A) 6 %; MCH 31.2 pg (25.0-35.0); MCHC 31.6 g/dL (31.0-37.0); MCV 98.6 fL (80.0-100.0); Macrocytosis Slight; Mean Platelet Volume 8.5; Monocytes # (A) 0.5 k/uL (0-1.0); Monocytes % (A) 4 %; Neutrophils # (A) 10.7 k/uL (1.3-7.7); Neutrophils % (A) 86 %; Poikilocytosis Moderate; RBC 2.83 m/uL (4.30-5.90); RDW 18.9 % (11.5-15.5); WBC 12.4 k/uL (3.8-10.6); WBC (Perox) 12.58
[2016-10-17 04:41] LABS: INR 1.3 (<1.1); Prothrombin Time 12.5 sec (9.0-12.0)
[2016-10-17 04:51] LABS: ALT 41 U/L (21-72); AST 26 U/L (17-59); Alkaline Phosphatase 63 U/L (38-126); Anion Gap 6 mmol/L; Blood Urea Nitrogen 55 mg/dL (9-20); Calcium 7.6 mg/dL (8.4-10.2); Carbon Dioxide 32 mmol/L (22-30); Chloride 113 mmol/L (98-107); Glucose 122 mg/dL (74-99); Magnesium 3.2 mg/dL (1.6-2.3); Non-African American GFR(MDRD) 54 (>60 ml/min/1.73 sqM); Phosphorous 3.6 mg/dL (2.5-4.5); Potassium 3.7 mmol/L (3.5-5.1); Sodium 151 mmol/L (137-145)
[2016-10-17] MEDS ORDERED: VANCOMYCIN TROUGH DUE 1 EACH MISC MISCELLANE ONE (05:00)
[2016-10-17] MEDS: AMIODARONE 200 MG TAB PO SCH ×3 (07:13→20:36)
[2016-10-17] MEDS: POTASSIUM CHLORIDE 10 MEQ in WATER FOR INJECTION 1 100ML.BAG IVPB SCH ×2 (07:13→08:37)
[2016-10-17] MEDS: LEVOTHYROXINE 75 MCG TAB PO SCH (07:13)
[2016-10-17 08:03] LABS: Glucose,Whole Blood 127 mg/dL (75-99)
[2016-10-17] MEDS: METOPROLOL TARTRATE 25 MG TAB PO SCH ×2 (08:06→20:36)
[2016-10-17] MEDS: ASPIRIN 81 MG CHEW PO SCH (08:06)
[2016-10-17] MEDS: DIGOXIN 250 MCG/ML 2 ML AMP IVP SCH (08:06)
[2016-10-17] MEDS: PANTOPRAZOLE 40 MG/10 ML VIAL IVP SCH (08:37)
--- NOTE | 2016-10-17 08:54 | XR ---
EXAMINATION TYPE: XR chest 1V portable DATE OF EXAM: 10/17/2016 6:18 AM COMPARISON: 10/16/2016 INDICATION: Postop TECHNIQUE: Single frontal view of the chest is obtained. FINDINGS: The heart size is mildly prominent. The pulmonary vasculature is normal. There is opacity in the right mid and lower lung field. Small right pleural effusion may be present. Minimal left pleural effusion and atelectasis may be present. Chest tube is within the left base. Add itional catheters are present. Surgical skin yoli are present in the midline. EKG leads overlie th e chest. Endotracheal tube and nasogastric tube is been removed. IMPRESSION: 1. Worsening right lung opacity. 2. Stable left basilar lung findings. 3. Multiple catheters remain present.
--- NOTE | 2016-10-17 09:33 | US ---
EXAMINATION TYPE: US chest DATE OF EXAM: 10/17/2016 9:13 AM COMPARISON: NONE CLINICAL HISTORY: right pleural effusion. EXAM MEASUREMENTS: Right Pleural Effusion fluid pocket: 13.1 cm Right skin to fluid thickness: 3.6 cm Right side marked for possible thoracentesis outside the dept. Pulmonologists are able to review the images in the patient?s EMR. IMPRESSIONS: 1. Right pleural effusion
[2016-10-17 12:28] LABS: Glucose,Whole Blood 129 mg/dL (75-99)
[2016-10-17] MEDS: LACTATED RINGERS 1,000 ML IV SCH (12:46)
--- NOTE | 2016-10-17 14:01 | P.PN ---
Subjective Principal diagnosis: Respiratory failure This is a 71-year-old male who came in the hospital on September 23 and underwent a JAYDE and heart catheterization showing a ruptured chordae tendonae, mitral regurgitation, moderate pulmonary hypertension, with history of paroxysmal atrial fibrillation and heart failure. 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 With this the patient was initiated to itraconazole. He however developed atrial fibrillation. Because of this he was initiated to amiodarone. The dose of itraconazole was reduced by 50%. There is no evidence of any ulcerations of the QT interval while he was in hospital. He eventually was discharged home. It is related that he was not able to obtain the itraconazole. In this is going to be addressed in the coming days. However the brought him to the emergency room feeling very short of breath. He was having abdominal distention with increasing shortness of breath. Through his stay in emergency center he continues to feel more more short of breath. He then developed respiratory failure which required intubation sedation mechanical ventilation. Over the following days he is improved was extubated yesterday. He didn't use to improve. His extensive edema has improved. Especially the massive abdominal edema that he was having. Extremity edema is also improved. He is awake and interactive still having some difficulty with his voice was able to answer simple questions. Objective - Vital Signs Vital signs: Vital Signs Temp 97.9 F 10/17/16 12:00 Pulse 76 10/17/16 13:00 Resp 10 L 10/17/16 13:00 BP 100/55 10/16/16 08:00 Pulse Ox 93 L 10/17/16 13:00 Intake & Output 10/16/16 10/17/16 10/17/16 18:59 06:59 18:59 Intake Total 297.120 156 306.0 Output Total 1040 1020 730 Balance -742.880 -864 -424.0 Weight 113 kg Intake: IV 196 156 306.0 Lactated Ringers 1,000 ml 160 120 60 @ 20 mls/hr IV .Q24H [facility] Rx#:[id number] Piperacillin-Tazobactam 3 25.0 .375 gm In Dextrose/Water 1 50ml.bag @ 12.5 mls/hr IVPB Q8H [facility] Rx#: [id number] Potassium Chloride 10 meq 200 In Water For Injection 1 100ml.bag @ 100 mls/hr IVPB Q1HR [facility] Rx#: [id number] Pressure Bag 36 36 21 Intake, IV Titration 101.120 Amount IV Fluid Continuation 800 50.0 ml As IV .STK-MED ONE Rx #:[id number] Propofol 500 mg In Empty 51.120 Bag 1 bag @ Titrate IV . Q0M [facility] Rx#:[id number] Output: Chest Tube Drainage 110 150 100 LEFT PLEURAL 110 150 100 Drainage 290 190 225 Left Lateral Chest 100 15 60 Medial Chest 120 160 105 Right Lateral Chest 70 15 60 Urine 640 680 405 Other: Voiding Method Indwelling Catheter Indwelling Catheter ABP, PAP, CO, CI - Last Documented Arterial Blood Pressure 114/45 - Exam This is a 71-year-old male. comfortable HEENT: Head is atraumatic, normocephalic. Pupils equal, round. Sclerae is anicteric. Conjunctiva slightly pale. Mucous membranes of the mouth are moist. No thrush noted. NECK: Supple. No JVD. No lymphadenopathy. No thyromegaly. LUNGS: There is symmetrical air entry. There are bibasal crackles. No significant bronchial sounds. HEART: Irregular with no no murmur Dressing on sternal wound with no breakthrough bleeding or drainage. Right sided pleural chest tube in place. ABDOMEN: Distinctly distended. Few bowel sounds are noted. Organomegaly is not detected. EXTREMITIES: +1 bilateral pedal edema. No calf tenderness. ORLIN hose in place. NEUROLOGICAL: Arousable response to yes and no questions moves both arms and legs Skin :patient has an extensive dressing to the chest or there was difficulty with the dehiscence. - Labs CBC & Chem 7: 10/17/16 04:10 10/17/16 04:10 Labs: Abnormal Lab Results - Last 24 Hours (Table) 10/16/16 10/16/16 10/17/16 Range/Units 17:58 20:14 00:26 WBC (3.8-10.6) k/uL RBC (4.30-5.90) m/uL Hgb (13.0-17.5) gm/dL Hct (39.0-53.0) % RDW (11.5-15.5) % Neutrophils # (1.3-7.7) k/uL Lymphocytes # (1.0-4.8) k/uL PT (9.0-12.0) sec Sodium (137-145) mmol/L Chloride (98-107) mmol/L Carbon Dioxide (22-30) mmol/L BUN (9-20) mg/dL Creatinine (0.66-1.25) mg/dL Glucose (74-99) mg/dL POC Glucose (mg/dL) 143 H 133 H 131 H (75-99) mg/dL Calcium (8.4-10.2) mg/dL Magnesium (1.6-2.3) mg/dL Total Protein (6.3-8.2) g/dL Albumin (3.5-5.0) g/dL 10/17/16 10/17/16 10/17/16 Range/Units 04:10 04:10 04:10 WBC 12.4 H (3.8-10.6) k/uL RBC 2.83 L (4.30-5.90) m/uL Hgb 8.8 L (13.0-17.5) gm/dL Hct 27.9 L (39.0-53.0) % RDW 18.9 H (11.5-15.5) % Neutrophils # 10.7 H (1.3-7.7) k/uL Lymphocytes # 0.8 L (1.0-4.8) k/uL PT 12.5 H (9.0-12.0) sec Sodium 151 H (137-145) mmol/L Chloride 113 H (98-107) mmol/L Carbon Dioxide 32 H (22-30) mmol/L BUN 55 H (9-20) mg/dL Creatinine 1.30 H (0.66-1.25) mg/dL Glucose 122 H (74-99) mg/dL POC Glucose (mg/dL) (75-99) mg/dL Calcium 7.6 L (8.4-10.2) mg/dL Magnesium 3.2 H (1.6-2.3) mg/dL Total Protein 5.0 L (6.3-8.2) g/dL Albumin 2.3 L (3.5-5.0) g/dL 10/17/16 10/17/16 10/17/16 Range/Units 04:14 08:01 12:24 WBC (3.8-10.6) k/uL RBC (4.30-5.90) m/uL Hgb (13.0-17.5) gm/dL Hct (39.0-53.0) % RDW (11.5-15.5) % Neutrophils # (1.3-7.7) k/uL Lymphocytes # (1.0-4.8) k/uL PT (9.0-12.0) sec Sodium (137-145) mmol/L Chloride (98-107) mmol/L Carbon Dioxide (22-30) mmol/L BUN (9-20) mg/dL Creatinine (0.66-1.25) mg/dL Glucose (74-99) mg/dL POC Glucose (mg/dL) 125 H 127 H 129 H (75-99) mg/dL Calcium (8.4-10.2) mg/dL Magnesium (1.6-2.3) mg/dL Total Protein (6.3-8.2) g/dL Albumin (3.5-5.0) g/dL Microbiology - Last 24 Hours (Table) 10/11/16 06:40 Blood Culture - Final Blood No Growth after 144 hours 10/15/16 14:40 Gram Stain - Preliminary Chest Wound Culture - Preliminary 10/15/16 14:40 Gram Stain - Preliminary Chest Wound Culture - Preliminary 10/15/16 14:40 Gram Stain - Preliminary Chest Tissue Culture - Preliminary Laboratory Results WBC 12.4 k/uL (3.8-10.6) H 10/17/16 04:10 RBC 2.83 m/uL (4.30-5.90) L 10/17/16 04:10 Hgb 8.8 gm/dL (13.0-17.5) L 10/17/16 04:10 Hct 27.9 % (39.0-53.0) L 10/17/16 04:10 MCV 98.6 fL (80.0-100.0) 10/17/16 04:10 MCH 31.2 pg (25.0-35.0) 10/17/16 04:10 MCHC 31.6 g/dL (31.0-37.0) 10/17/16 04:10 RDW 18.9 % (11.5-15.5) H 10/17/16 04:10 Plt Count 164 k/uL (150-450) 10/17/16 04:10 Neutrophils % 86 % 10/17/16 04:10 Neutrophils % (Manual) 85.5 % 10/08/16 04:20 Band Neutrophils % 0.5 % 10/08/16 04:20 Lymphocytes % 6 % 10/17/16 04:10 Lymphocytes % (Manual) 5.5 % 10/08/16 04:20 Monocytes % 4 % 10/17/16 04:10 Monocytes % (Manual) 4.0 % 10/08/16 04:20 Eosinophils % 3 % 10/17/16 04:10 Eosinophils % (Manual) 3.0 % 10/08/16 04:20 Basophils % 0 % 10/17/16 04:10 Metamyelocytes % 1.0 % 10/08/16 04:20 Myelocytes % 0.5 % 10/08/16 04:20 Neutrophils # 10.7 k/uL (1.3-7.7) H 10/17/16 04:10 Neutrophils # (Manual) 16.2 k/uL (1.3-7.7) H 10/08/16 04:20 Lymphocytes # 0.8 k/uL (1.0-4.8) L 10/17/16 04:10 Lymphocytes # (Manual) 1.0 k/uL (1.0-4.8) 10/08/16 04:20 Monocytes # 0.5 k/uL (0-1.0) 10/17/16 04:10 Monocytes # (Manual) 0.8 k/uL (0-1.0) 10/08/16 04:20 Eosinophils # 0.3 k/uL (0-0.7) 10/17/16 04:10 Eosinophils # (Manual) 0.6 k/uL (0-0.7) 10/08/16 04:20 Basophils # 0.0 k/uL (0-0.2) 10/17/16 04:10 Nucleated RBCs 0 /100 WBC (0-0) 10/08/16 04:20 Manual Slide Review Performed 10/08/16 04:20 Large Platelets Present 10/06/16 21:00 Polychromasia Present 10/08/16 04:20 Hypochromasia Marked 10/17/16 04:10 Poikilocytosis Moderate 10/17/16 04:10 Poikilocytosis (manual Present 10/08/16 04:20 Anisocytosis Slight 10/17/16 04:10 Macrocytosis Slight 10/17/16 04:10 Ovalocytes Present 10/06/16 21:00 PT 12.5 sec (9.0-12.0) H 10/17/16 04:10 INR 1.3 (<1.1) 10/17/16 04:10 APTT 47.0 sec (22.0-30.0) H 10/14/16 06:30 D-Dimer 6.31 mg/L FEU (<0.60) H 10/06/16 21:00 Sample Site shyanne 10/16/16 04:45 ABG pH 7.46 (7.35-7.45) H 10/16/16 04:45 ABG pCO2 41 mmHg (35-45) 10/16/16 04:45 ABG pO2 101 mmHg (83-108) 10/16/16 04:45 ABG HCO3 29 mmol/L (21-25) H 10/16/16 04:45 ABG Total CO2 30 mmol/L (19-24) H 10/16/16 04:45 ABG O2 Saturation 98.0 % (94-97) H 10/16/16 04:45 ABG Base Excess 5.3 mmol/L 10/16/16 04:45 FiO2 50 % 10/16/16 04:45 Sodium 151 mmol/L (137-145) H 10/17/16 04:10 Potassium 3.7 mmol/L (3.5-5.1) 10/17/16 04:10 Chloride 113 mmol/L (98-107) H 10/17/16 04:10 Carbon Dioxide 32 mmol/L (22-30) H 10/17/16 04:10 Anion Gap 6 mmol/L 10/17/16 04:10 BUN 55 mg/dL (9-20) H 10/17/16 04:10 Creatinine 1.30 mg/dL (0.66-1.25) H 10/17/16 04:10 Est GFR (MDRD) Af Amer >60 (>60 ml/min/1.73 sqM) 10/17/16 04:10 Est GFR (MDRD) Non-Af 54 (>60 ml/min/1.73 sqM) 10/17/16 04:10 Glucose 122 mg/dL (74-99) H 10/17/16 04:10 POC Glucose (mg/dL) 129 mg/dL (75-99) H 10/17/16 12:24 POC Glu Tobacco Sizer ID Jesus Cottrell 10/17/16 12:[address] Glu mg/dL 120 mg/dL 10/07/16 05:18 Hemoglobin A1c 5.8 % (4.2-6.1) 10/07/16 05:18 Plasma Lactic Acid Samir 1.0 mmol/L (0.7-2.0) 10/07/16 05:18 Calcium 7.6 mg/dL (8.4-10.2) L 10/17/16 04:10 Ionized Calcium Guille 4.4 mg/dL (4.5-5.3) L 10/15/16 05:00 Phosphorus 3.6 mg/dL (2.5-4.5) 10/17/16 04:10 Magnesium 3.2 mg/dL (1.6-2.3) H 10/17/16 04:10 Total Bilirubin 1.0 mg/dL (0.2-1.3) 10/17/16 04:10 AST 26 U/L (17-59) 10/17/16 04:10 ALT 41 U/L (21-72) 10/17/16 04:10 Alkaline Phosphatase 63 U/L (38-126) 10/17/16 04:10 Total Creatine Kinase 736 U/L (55-170) H 10/06/16 09:50 CK-MB (CK-2) 7.2 ng/mL (0.0-2.4) H* 10/06/16 09:50 CK-MB (CK-2) Rel Index 1.0 10/06/16 09:50 Troponin I 1.510 ng/mL (0.000-0.034) H* 10/06/16 09:50 NT-Pro-B Natriuret Pep 6520 pg/mL 10/06/16 09:50 Total Protein 5.0 g/dL (6.3-8.2) L 10/17/16 04:10 Albumin 2.3 g/dL (3.5-5.0) L 10/17/16 04:10 TSH 32.400 mIU/L (0.465-4.680) H 10/06/16 09:50 Free T4 0.88 ng/dL (0.78-2.19) 10/06/16 09:50 Urine Color Dark Yellow 10/06/16 18:30 Urine Appearance Cloudy (Clear) 10/06/16 18:30 Urine pH 5.0 (5.0-8.0) 10/06/16 18:30 Ur Specific [place] 1.018 (1.001-1.035) 10/06/16 18:30 Urine Protein Trace (Negative) H 10/06/16 18:30 Urine Glucose (UA) Negative (Negative) 10/06/16 18:30 Urine Ketones Negative (Negative) 10/06/16 18:30 Urine Blood Negative (Negative) 10/06/16 18:30 Urine Nitrite Negative (Negative) 10/06/16 18:30 Urine Bilirubin 1+ (Negative) H 10/06/16 18:30 Urine Urobilinogen 4.0 mg/dL (<2.0) 10/06/16 18:30 Ur Leukocyte Esterase Negative (Negative) 10/06/16 18:30 Urine WBC 10 /hpf (0-5) H 10/06/16 18:30 Ur Squamous Epith Cells 2 /hpf (0-4) 10/06/16 18:30 Calcium Oxalate Crystal Occasional /hpf (None) H 10/06/16 18:30 Amorphous Sediment Occasional /hpf (None) H 10/06/16 18:30 Hyaline Casts 79 /lpf (0-2) H 10/06/16 18:30 Urine Mucus Rare /hpf (None) H 10/06/16 18:30 Vancomycin Trough 15.0 ug/mL 10/17/16 04:10 Digoxin 1.6 ng/mL 10/12/16 06:54 Blood Type O Positive 10/14/16 13:52 Blood Type Recheck No 10/14/16 13:52 Antibody Screen NEGATIVE 10/14/16 13:52 Crossmatch See Detail 10/14/16 13:52 Transfuse Platelets 10/15/16 10/14/16 13:52 Spec Expiration Date 10/17/2016235110/14/16 13:52 Microbiology 10/11/16 06:40 Blood Blood Culture - Final No Growth after 144 hours 10/15/16 14:40 Chest Gram Stain - Preliminary 10/15/16 14:40 Chest Wound Culture - Preliminary 10/15/16 14:40 Chest Gram Stain - Preliminary 10/15/16 14:40 Chest Wound Culture - Preliminary 10/15/16 14:40 Chest Gram Stain - Preliminary 10/15/16 14:40 Chest Tissue Culture - Preliminary 10/15/16 14:40 Chest Anaerobic Culture - Preliminary 10/15/16 14:40 Chest Anaerobic Culture - Preliminary 10/15/16 14:40 Chest Anaerobic Culture - Preliminary 10/11/16 11:47 Catheter Tip Catheter Tip Culture - Final 10/06/16 10:00 Blood Blood Culture - Final No Growth after 144 hours 10/06/16 21:00 Sputum Gram Stain - Final 10/06/16 21:00 Sputum Sputum Culture - Final Haemophilus influenzae Serratia marcescens Assessment and Plan (1) Acute respiratory failure Narrative/Plan: 71-year-old male with history of thyroid cancer recently was hospitalized at which point in time was having difficulties with congestive heart failure. He was noted evidence of aortic valve insufficiency and mitral valve regurgitation. There is also some lymphadenopathy noted within the chest. As he was taken to the operating room and aortic valve replacement occurred as well as mitral valve repair. Biopsy of mediastinal lymph nodes also occurred. 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 Patient was initiated to itraconazole. He however developed atrial fibrillation and was placed on amiodarone and the itraconazole dose was reduced. Upon discharge he has not been able to continue the itraconazole. However is only been home for a very short period of time we developed the progressive shortness of breath. At admission he has extensive edema in his abdominal cavity as well as evidence of congestive heart failure. Concerns to pneumonia given his significant leukocytosis and antibiotic therapy was begun with piperacillin tazobactam and vancomycin. Sputum culture with Haemophilus and Serratia resistant to Unasyn susceptible to Zosyn. We Will Continue Zosyn, Plan Another 48 Hours Ongoing aggressive supportive care is continuing Cardiothoracic surgery is following after the reconstruction of the sternum, cultures are negative so far. No evidence of any infection Patient had extensive leukocytosis at admission. This is now improved. Has increased slightly now in the postoperative time frame and will be monitored. Continue current antibiotic therapy while cultures are in process. Status: Acute (2) Status post aortic valve replacement Status: Acute (3) Status post mitral valve repair Status: Acute (4) Histoplasmosis Status: Acute
[2016-10-17 15:27] LABS: Glucose,Whole Blood 126 mg/dL (75-99)
--- NOTE | 2016-10-17 15:44 | PN ---
DATE OF SERVICE: 10/17/2016. This is a very pleasant 71-year-old gentleman who had recently undergone a mitral valve repair. Unfortunately, he was returned to the hospital with increasing shortness of breath, cough, and congestion. He was returned to the hospital on 10/06/2016 with increased shortness of breath, cough, and congestion. He was found to have sternal dehiscence. He did develop worsening shortness of breath requiring intubation and mechanical ventilatory support. His sternal flap was repaired on 10/15/[address] Riggs. This is postoperative day #2. He was successfully extubated yesterday and is seen again today in follow-up. He is awake and alert, in no acute distress. He denies any worsening shortness of breath, cough or congestion. He remains quite weak; however and requires increased encouragement. His chest x-ray today shows significant worsening right lung opacity along with stable left basilar lung findings. Ultrasound of the chest today revealed a 13.1 cm right pleural effusion. He is maintaining good O2 saturations in the upper 90s on 5 liters per minute per nasal cannula. On physical exam, he is awake and alert, in no acute distress. Vital signs reveal blood pressure 117/50, heart rate 70, respirations 12, temperature 97.8. He is 97% O2 saturation on 5 liters per minute per nasal cannula. His head is normocephalic. Sclerae are anicteric. His neck is supple. Trachea midline. His lung sounds have few scattered rhonchi, diminished in the right posterior base. Left-sided chest tube remains in place. His heart is currently regular, S1, S2. Chest tube remains in place. His abdomen is soft, nontender. Bowel sounds are present. There are 3 Shahriar-Esquivel drains. INVESTIGATIONS: Lab results reveal WBC 12.4, hemoglobin 8.8, platelet count 164,000. Sodium 151, potassium 3.7, chloride 113, CO2 of 32, BUN 55, creatinine 1.30. His medications are reviewed. IMPRESSION: 1. Prolonged postoperative respiratory failure, status post mitral valve repair in a patient who developed sternal dehiscence, status post. Sternal flap, postoperative day. 2. Acute hypoxic respiratory failure secondary to above and a large right-sided pleural effusion. 3. Purulent tracheobronchitis/bronchopneumonia secondary to Serratia marcescens and some Haemophilus influenza. 4. Paroxysmal atrial fibrillation. 5. Hypothyroidism. 6. History of hypertension. 7. Hyperlipidemia. 8. Congestive heart failure secondary to valvular heart disease. PLAN: The patient was seen and evaluated by Dr. Armando. Ultrasound of the chest was ordered and there is a significant amount of right-sided pleural effusion. We will plan for a thoracentesis. His left chest tube remains in place as do the MEGHAN drains. His sternal dressing is dry and intact. We have encouraged increased use of the incentive spirometer and cough and deep breathing exercises. The patient does have a weak cough and also had difficulty in swallowing. A swallow eval is pending. He will remain n.p.o. for now. Will continue with his current medications including antibiotics in form of Zosyn and bronchodilators. Will increase his activity as tolerated. Will continue to follow and make further recommendations based on his clinical status.
--- NOTE | 2016-10-17 15:49 | P.PN ---
Progress Note - Text CV Surgery Nursing Principal diagnosis: Acute hypoxic respiratory failure requiring mechanical ventilation, present on admission. Sputum culture positive for Haemophilus influenza, serratia marcescens. Currently on Zosyn, vancomycin. Infectious disease following. CAT scan of the chest on 10/09/16 demonstrated dehiscence of sternal wires, an unexpected postsurgical condition related to the patient's underlying comorbidities. Left pleural effusion. POD #20 aortic valve replacement, mitral valve repair, modified Frederick maze, mediastinal lymph node biopsy. POD #2 sternal exploration due to sternal debridement and wound closure with bilateral pectoralis major myocutaneous advancement flaps. POD #2 placement of left chest tube for left pleural effusion. Patient awake and alert, no distress noted, is complaining of generalized weakness. Vital Signs: Afebrile Vital Signs - 24 hr 10/16/16 10/16/16 10/16/16 11:55 12:00 12:05 Temperature 97.8 F Pulse Rate 67 67 67 Respiratory 14 Rate O2 Sat by Pulse 96 Oximetry 10/16/16 10/16/16 10/16/16 13:00 14:00 15:00 Temperature Pulse Rate 69 69 69 Respiratory 14 14 14 Rate O2 Sat by Pulse 96 95 95 Oximetry 10/16/16 10/16/16 10/16/16 15:31 15:50 16:00 Temperature 99.8 F H Pulse Rate 69 71 72 Respiratory 14 Rate O2 Sat by Pulse 92 L Oximetry 10/16/16 10/16/16 10/16/16 17:00 18:00 19:00 Temperature Pulse Rate 71 72 75 Respiratory 11 L 14 10 L Rate O2 Sat by Pulse 95 95 95 Oximetry 10/16/16 10/16/16 10/16/16 20:00 21:00 21:18 Temperature 97.8 F Pulse Rate 70 69 70 Respiratory 16 10 L Rate O2 Sat by Pulse 95 96 Oximetry 10/16/16 10/16/16 10/16/16 21:32 22:00 23:00 Temperature Pulse Rate 68 72 72 Respiratory 11 L 12 Rate O2 Sat by Pulse 96 96 Oximetry 10/16/16 10/16/16 10/17/16 23:19 23:48 00:00 Temperature Pulse Rate 71 70 70 Respiratory 12 16 Rate O2 Sat by Pulse 96 97 Oximetry 10/17/16 10/17/16 10/17/16 00:01 01:00 02:00 Temperature Pulse Rate 70 73 71 Respiratory 11 L 10 L Rate O2 Sat by Pulse 94 L 95 Oximetry 10/17/16 10/17/16 10/17/16 03:00 03:21 03:39 Temperature Pulse Rate 71 69 73 Respiratory 21 Rate O2 Sat by Pulse 95 Oximetry 10/17/16 10/17/16 10/17/16 04:00 05:00 06:00 Temperature Pulse Rate 72 73 73 Respiratory 11 L 13 8 L Rate O2 Sat by Pulse 96 96 95 Oximetry 10/17/16 10/17/16 10/17/16 07:00 08:00 09:36 Temperature 97.8 F Pulse Rate 68 70 67 Respiratory 10 L 11 L Rate O2 Sat by Pulse 97 97 Oximetry 10/17/16 09:52 Temperature Pulse Rate 70 Respiratory Rate O2 Sat by Pulse Oximetry ABP, PAP, CO, CI - Last 8 Hours Arterial Blood Pressure 117/50 Arterial Blood Pressure 116/50 Arterial Blood Pressure 113/50 Arterial Blood Pressure 119/52 Arterial Blood Pressure 99/46 Labs: Short CBC 10/17/16 Range/Units 04:10 WBC 12.4 H (3.8-10.6) k/uL Hgb 8.8 L (13.0-17.5) gm/dL Hct 27.9 L (39.0-53.0) % Plt Count 164 (150-450) k/uL Neutrophils # 10.7 H (1.3-7.7) k/uL BMP 10/17/16 04:10 Sodium 151 H Potassium 3.7 Chloride 113 H Carbon Dioxide 32 H BUN 55 H Creatinine 1.30 H Glucose 122 H Calcium 7.6 L Liver Function 10/17/16 Range/Units 04:10 Total Bilirubin 1.0 (0.2-1.3) mg/dL AST 26 (17-59) U/L ALT 41 (21-72) U/L Alkaline Phosphatase 63 (38-126) U/L Albumin 2.3 L (3.5-5.0) g/dL IV Fluids: lactated Ringer's at 20 mL per hour Lungs: scattered rhonchi throughout, diminished bilateral bases right greater than left. Respirations are unlabored. O2 sat: 96% on 5 L nasal cannula. I/S: 500-750 mL , reviewed with the patient the importance of using his incentive spirometry every hour while awake. The patient did give a good return demonstration on his incentive spirometry. Heart: S1S2, regular rhythm and rate, negative for S3, gallop or murmur. Bedside telemetry showing normal sinus rhythm heart rate 70. Chest incision clean with dressing clean and dry. MEGHAN drains in place draining serosanguineous drainage. Right chest MEGHAN drain with 40 mL output in the last 8 hours, 110 mL output in the last 24 hours. The mid chest MEGHAN drain draining serosanguineous drainage. 105 mL output in the last 8 hours, 340 mL output in the last 24 hours. Left chest MEGHAN drain draining thin serosanguineous drainage. 40 mL output in the last 8 hours, 155 mL output in the last [address] hours[address] Heart [address] in place, reminded patient on use of her heart hugger. knee-high ORLIN hose and sequential compression devices in place to bilateral lower extremities. Abdomen: Soft, Positive bowel sounds present in all 4 quadrants. CBGs: 125-143 mg/dL in the last 24 hours. U/O: adequate, Duong catheter for accurate I&O. Chest Tubes: left pleural chest tube without air leak, 90 mL output in the last 8 hours, 280 mL of thin serosanguineous drainage in the last 24 hours. Chest tube remains to low continuous wall suction. 24 hr Total: Active Medications Amiodarone HCl (Cordarone) 400 mg PO BID@0600,1800 [facility] Last Admin: 10/17/16 07:13 Dose: Not Given Aspirin (Aspirin) 81 mg PO DAILY [facility] Last Admin: 10/17/16 08:06 Dose: Not Given Digoxin (Lanoxin) 125 mcg IVP DAILY [facility] Last Admin: 10/17/16 08:06 Dose: Not Given Heparin Sodium (Porcine) (Heparin) 5,000 unit SQ Q8HR [facility] Last Admin: 10/17/16 08:37 Dose: 5,000 unit Piperacillin/Tazobactam/ (Dextrose 3.375 gm/ IV Solution) 50 mls @ 12.5 mls/hr IVPB Q8H [facility] Last Admin: 10/17/16 04:16 Dose: 12.5 mls/hr Lactated Ringer's (Lactated Ringers) 1,000 mls @ 20 mls/hr IV .Q24H [facility] Last Admin: 10/16/16 08:44 Dose: 20 mls/hr Ibuprofen (Motrin Oral Susp Cup) 600 mg PO Q6H PRN PRN Reason: Fever and/or Mild Pain Last Admin: 10/11/16 02:21 Dose: 600 mg Insulin Human Lispro (Humalog) 0 unit SQ Q4H STEVAN PRN Reason: Protocol Last Admin: 10/17/16 08:05 Dose: Not Given Ipratropium [place] (Atrovent Nebulized) 0.5 mg INHALATION RT-Q4H [facility] Last Admin: 10/17/16 09:35 Dose: 0.5 mg Levalbuterol HCl (Xopenex Nebulized (Conc)) 1.25 mg INHALATION RT-Q4H [facility] Last Admin: 10/17/16 09:35 Dose: 1.25 mg Levothyroxine Sodium (Synthroid) 150 mcg PO DAILY@0630 [facility] Last Admin: 10/17/16 07:13 Dose: Not Given Metoprolol Tartrate (Lopressor) 25 mg PO BID [facility] Last Admin: 10/17/16 08:06 Dose: Not Given Miscellaneous Information (Potassium Per Protocol) 1 each MISCELLANE DAILY PRN ; Protocol PRN Reason: Per Protocol Miscellaneous Information (Magnesium Per Protocol) 1 each MISCELLANE DAILY PRN ; Protocol PRN Reason: Per Protocol Miscellaneous Information (Phosphorus Per Protocol) 1 each MISCELLANE DAILY PRN ; Protocol PRN Reason: Per Protocol Pantoprazole Sodium (Protonix) 40 mg IVP DAILY [facility] Last Admin: 10/17/16 08:37 Dose: 40 mg Sodium Chloride (Saline Flush) 20 ml IV Q4HR PRN PRN Reason: PICC Line Sodium Chloride (Saline Flush) 10 ml IV WEEKLY [facility] Plan: 1. Continue aspirin, Lopressor, digoxin, heparin sc. We will hold off on anticoagulation for now, it will be reassessed tomorrow 10/18/2016 as he may need a thoracentesis or right pleural chest tube placement. 2. Continue amiodarone 400 mg PO BID, for A. fib prophylaxis. 3. Continue antibiotics per infectious disease. Dr. Ramos is following. 4. Pulmonary management per Dr. Armando's recommendations. (right chest ultrasound showed a 13 cm fluid pocket) Dr. Armando attempted a right thoracentesis, although no drainage was returned. 5. Daily labs, x-rays. 6. Diabetic management per internal medicine service. 7. MEGHAN drains will remain in place as well as left pleural chest tube today. We will continue to monitor drainage. 8. Strict I/O, daily weights. 9. More recommendations as patient progresses.
--- NOTE | 2016-10-17 20:19 | P.PN ---
Subjective Principal diagnosis: Status post open-heart surgery, respiratory failure, atrial fibrillation and CHF and sternal dehiscence This patient had a prolonged ICU course. Initially patient had mitral valve repair, aortic valve replacement and also maze procedure. He was sent home in stable condition. He was readmitted with respiratory difficulties and failure. Patient required prolonged intubation and mechanical support. He was treated for pneumonia and CHF and also atrial fibrillation. He was noted to have sternal dehiscence and underwent surgery with sternal flap. Patient is since then is extubated. He looks frail and weak. So far he seemed to be tolerating. A chest x-ray showed effusions and telecommunication operator planning to tap the pleural fluid. Patient is maintaining sinus rhythm. We will cut back the dose of the amiodarone to 200 mg twice a day. We'll going to get a digoxin level. Rest of the medication to be continued. Incentive spirometry. Patient is having difficulty swallowing. Swallowing evaluation is being done Objective - Vital Signs Vital signs: Vital Signs Temp 97.5 F L 10/17/16 16:00 Pulse 73 10/17/16 19:00 Resp 12 10/17/16 19:00 BP 100/55 10/16/16 08:00 Pulse Ox 97 10/17/16 19:00 Intake & Output 10/17/16 10/17/16 10/18/16 06:59 18:59 06:59 Intake Total 156 391.0 13 Output Total 1020 1260 60 Balance -864 -869.0 -47 Weight 113 kg Intake: IV 156 391.0 13 Lactated Ringers 1,000 ml 120 80 10 @ 20 mls/hr IV .Q24H [facility]EV[facility] Rx#:[id number] Piperacillin-Tazobactam 3 75.0 .375 gm In Dextrose/Water 1 50ml.bag @ 12.5 mls/hr IVPB Q8H STEV[facility] Rx#: [id number] Potassium Chloride 10 meq 200 In Water For Injection 1 100ml.bag @ 100 mls/hr IVPB Q1HR STEVAN Rx#: [id number] Pressure Bag 36 36 3 Output: Chest Tube Drainage 150 120 LEFT PLEURAL 150 120 Drainage 190 390 Left Lateral Chest 15 110 Medial Chest 160 180 Right Lateral Chest 15 100 Urine 680 750 60 Other: Voiding Method Indwelling Catheter Indwelling Catheter ABP, PAP, CO, CI - Last Documented Arterial Blood Pressure 109/48 - Exam GENERAL EXAM: Patient is extubated HEENT: Normocephalic. Normal reaction of pupils, equal size, normal range of extraocular motion. No erythema or exudates in the throat. NECK: No masses, no nuchal rigidity. CHEST: No chest wall deformity. LUNGS: [Diminished breath sounds, scattered rhonchi HEART: Irregular heart rhythm ABDOMEN: No hepatosplenomegaly, normal bowel sounds, no guarding or rigidity. SKIN: No rashes CENTRAL NERVOUS SYSTEM: Sedated EXTREMITIES: No cyanosis, clubbing or edema. - Labs CBC & Chem 7: 10/17/16 04:10 10/17/16 04:10 Labs: Abnormal Lab Results - Last 24 Hours (Table) 10/16/16 10/17/16 10/17/16 Range/Units 20:14 00:26 04:10 WBC (3.8-10.6) k/uL RBC (4.30-5.90) m/uL Hgb (13.0-17.5) gm/dL Hct (39.0-53.0) % RDW (11.5-15.5) % Neutrophils # (1.3-7.7) k/uL Lymphocytes # (1.0-4.8) k/uL PT 12.5 H (9.0-12.0) sec Sodium (137-145) mmol/L Chloride (98-107) mmol/L Carbon Dioxide (22-30) mmol/L BUN (9-20) mg/dL Creatinine (0.66-1.25) mg/dL Glucose (74-99) mg/dL POC Glucose (mg/dL) 133 H 131 H (75-99) mg/dL Calcium (8.4-10.2) mg/dL Magnesium (1.6-2.3) mg/dL Total Protein (6.3-8.2) g/dL Albumin (3.5-5.0) g/dL 10/17/16 10/17/16 10/17/16 Range/Units 04:10 04:10 04:14 WBC 12.4 H (3.8-10.6) k/uL RBC 2.83 L (4.30-5.90) m/uL Hgb 8.8 L (13.0-17.5) gm/dL Hct 27.9 L (39.0-53.0) % RDW 18.9 H (11.5-15.5) % Neutrophils # 10.7 H (1.3-7.7) k/uL Lymphocytes # 0.8 L (1.0-4.8) k/uL PT (9.0-12.0) sec Sodium 151 H (137-145) mmol/L Chloride 113 H (98-107) mmol/L Carbon Dioxide 32 H (22-30) mmol/L BUN 55 H (9-20) mg/dL Creatinine 1.30 H (0.66-1.25) mg/dL Glucose 122 H (74-99) mg/dL POC Glucose (mg/dL) 125 H (75-99) mg/dL Calcium 7.6 L (8.4-10.2) mg/dL Magnesium 3.2 H (1.6-2.3) mg/dL Total Protein 5.0 L (6.3-8.2) g/dL Albumin 2.3 L (3.5-5.0) g/dL 10/17/16 10/17/16 10/17/16 Range/Units 08:01 12:24 15:25 WBC (3.8-10.6) k/uL RBC (4.30-5.90) m/uL Hgb (13.0-17.5) gm/dL Hct (39.0-53.0) % RDW (11.5-15.5) % Neutrophils # (1.3-7.7) k/uL Lymphocytes # (1.0-4.8) k/uL PT (9.0-12.0) sec Sodium (137-145) mmol/L Chloride (98-107) mmol/L Carbon Dioxide (22-30) mmol/L BUN (9-20) mg/dL Creatinine (0.66-1.25) mg/dL Glucose (74-99) mg/dL POC Glucose (mg/dL) 127 H 129 H 126 H (75-99) mg/dL Calcium (8.4-10.2) mg/dL Magnesium (1.6-2.3) mg/dL Total Protein (6.3-8.2) g/dL Albumin (3.5-5.0) g/dL Microbiology - Last 24 Hours (Table) 10/15/16 14:40 Gram Stain - Final Chest Wound Culture - Final 10/15/16 14:40 Anaerobic Culture - Preliminary Chest 10/15/16 14:40 Anaerobic Culture - Preliminary Chest 10/15/16 14:40 Gram Stain - Preliminary Chest Tissue Culture - Preliminary 10/15/16 14:40 Gram Stain - Final Chest Wound Culture - Final 10/11/16 06:40 Blood Culture - Final Blood No Growth after 144 hours Assessment and Plan (1) Acute renal failure Status: Acute (2) Acute respiratory failure Status: Acute (3) Status post aortic valve replacement Status: Acute (4) Status post mitral valve repair Status: Acute (5) Atrial fibrillation with RVR Status: Acute (6) Congestive heart failure due to valvular disease Status: Acute Plan: Continue current medical therapy. Incentive spirometry. Field Broomer is planning pleural tap I'll cut back the dose of the amiodarone to 200 mg by mouth twice a day .we'll also get a digoxin level tomorrow morning.
[2016-10-17 20:37] LABS: Glucose,Whole Blood 124 mg/dL (75-99)
--- NOTE | 2016-10-17 23:27 | PN ---
DATE OF SERVICE: 10/17/2016. PRESENTING COMPLAINT: Thoracic surgery. INTERVAL HISTORY: This is a patient with multiple medical problems, had his sternal wires removed and pectoralis flap was pulled across his chest. Patient has been extubated. Awake, slightly delirious. Review of systems attempted for constitutional, cardiovascular, GI, pulmonary. Current medications include: 1. Cordarone. 2. Aspirin. 3. Digoxin. 4. Subcu heparin. 5. Atrovent nebulized bronchodilators. 6. Xopenex. 7. NSAID. 8. Lopressor. 9. IV Protonix. 10. IV Zosyn. On examination, temperature 97.9, pulse 73, respirations 10, blood pressure 129/47, pulse ox 94% on nasal cannula. GENERAL APPEARANCE: Awake but tired appearing. HEENT: Pupils equal. Conjunctivae pale. NECK: JVD unable to assess. Mass not palpable. RESPIRATORY: Effort normal. LUNGS: Diminished breath sounds. CARDIOVASCULAR: First and second heart sounds muffled. EXTREMITIES: No edema. ABDOMEN: Soft, nontender. Liver and spleen not palpable. PSYCHIATRY: Unable to assess. NEUROLOGIC: Does follow some simple commands. INVESTIGATIONS: White count 12.4, hemoglobin 8.8, platelets 164, sodium 151, potassium 3.7, BUN 55, creatinine 1.30. Chest x-ray shows possibly some fluid overload, it is a portable film. ASSESSMENT: 1. Sternal incision dehiscence with pectoralis flap done. 2. Acute hypoxic respiratory failure requiring intubation and mechanical ventilation. 3. Chronic pulmonary edema and sepsis. 4. Acute renal failure, probably acute tubular necrosis from hypoperfusion. 5. Persistent atrial fibrillation with rapid ventricular response initially. 6. 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 Disease status is not clear. 7. Bilateral pleural effusions secondary to congestive heart failure. 8. Sternal instability due to the wires, surgery as above. 9. Hypercholesterolemia. 10. Essential hypertension. 11. Hypothyroidism. 12. Obesity. 13. Primary osteoarthritis. 14. Hypothyroid. 15. Moderate secondary pulmonary hypertension. 16. Gastroesophageal reflux disease. 17. Pneumonia secondary to Haemophilus influenza serratia marcescens. 18. Hyponatremia from free water deficit. 19. Acute renal failure, prerenal with some improvement. PLAN: Continue current medication and treatment plan. Overall prognosis is guarded. Supportive care. Will follow.
[2016-10-17 23:30] LABS: Glucose,Whole Blood 121 mg/dL (75-99)
[2016-10-18] MEDS: IPRATROPIUM 0.5 MG/2.5 ML NEBU INHALATION SCH ×6 (00:01→20:33)
[2016-10-18] MEDS: LEVALBUTEROL NEB (CONC) 1.25 MG/0.5 ML AMP INHALATION SCH ×6 (00:01→20:33)
[2016-10-18] MEDS: PIPERACILLIN-TAZOBACTAM 3.375 GM in DEXTROSE/WATER 1 50ML.BAG IVPB SCH ×3 (04:48→20:26)
[2016-10-18 04:50] LABS: Glucose,Whole Blood 117 mg/dL (75-99)
[2016-10-18] MEDS: INSULIN LISPRO (humaLOG) 300 UNIT/3 ML VIAL SQ SCH ×5 (04:54→20:27)
[2016-10-18 05:11] LABS: Anisocytosis Slight; Basophils % (A) 0 %; CH 29.8; Eosinophils # (A) 0.3 k/uL (0-0.7); Eosinophils % (A) 3 %; HDW 3.91; HGB 8.6 gm/dL (13.0-17.5); Hypochromasia Marked; Luc # (Auto) 0.12; Luc % (Auto) 1; Lymphocytes # (A) 0.6 k/uL (1.0-4.8); Lymphocytes % (A) 7 %; MCH 30.8 pg (25.0-35.0); MCHC 30.7 g/dL (31.0-37.0); MCV 100.5 fL (80.0-100.0); Macrocytosis Moderate; Mean Platelet Volume 8.7; Monocytes # (A) 0.4 k/uL (0-1.0); Monocytes % (A) 4 %; Neutrophils # (A) 8.1 k/uL (1.3-7.7); Neutrophils % (A) 85 %; Poikilocytosis Slight; RBC 2.78 m/uL (4.30-5.90); RDW 18.6 % (11.5-15.5); WBC 9.5 k/uL (3.8-10.6); WBC (Perox) 9.55
[2016-10-18 05:23] LABS: INR 1.3 (<1.1); Prothrombin Time 12.8 sec (9.0-12.0)
[2016-10-18 05:41] LABS: ALT 38 U/L (21-72); AST 27 U/L (17-59); Alkaline Phosphatase 62 U/L (38-126); Anion Gap 6 mmol/L; Blood Urea Nitrogen 50 mg/dL (9-20); Calcium 7.6 mg/dL (8.4-10.2); Carbon Dioxide 32 mmol/L (22-30); Chloride 118 mmol/L (98-107); Glucose 115 mg/dL (74-99); Magnesium 3.3 mg/dL (1.6-2.3); Non-African American GFR(MDRD) >60 (>60 ml/min/1.73 sqM); Phosphorous 3.6 mg/dL (2.5-4.5); Potassium 3.6 mmol/L (3.5-5.1); Sodium 156 mmol/L (137-145); Total Bilirubin 0.9 mg/dL (0.2-1.3); Total Protein 5.2 g/dL (6.3-8.2)
[2016-10-18] MEDS: AMIODARONE 200 MG TAB PO SCH ×2 (06:14→18:11)
[2016-10-18] MEDS: LEVOTHYROXINE 75 MCG TAB PO SCH (06:15)
--- NOTE | 2016-10-18 07:51 | PCN ---
DATE OF PROCEDURE: PREOPERATIVE DIAGNOSIS: Right pleural effusion. POSTOPERATIVE DIAGNOSIS: Right pleural effusion. A time-out was completed verifying correct patient, procedure, site, positioning, and implant (s) or special equipment if applicable. Ultrasound guidance was used and right posterior chest appropriate fluid pocket was identified and marked. Despite two attempts with the thoracentesis tray and catheter, I only could get a small amount of bloody fluid from the right pleural space. Again, I tried twice in the location that was marked. There may be septations or coagulum in the right pleural space. I did let the cardiothoracic construction assistant know. He will let the cardiothoracic surgeon know. There was no immediate complications. The patient tolerated the procedure well. Again, two attempts without any significant fluid. The procedure at that point was aborted.
[2016-10-18 08:00] LABS: Glucose,Whole Blood 126 mg/dL (75-99)
--- NOTE | 2016-10-18 08:09 | XR ---
EXAMINATION TYPE: XR chest 1V portable DATE OF EXAM: 10/18/2016 7:00 AM Comparison: 10/17/2016 Clinical History: 71-year-old male postoperative evaluation Findings: Overlying midline skin yoli remain in place with a prosthetic aortic valve. Heart remains mildly e nlarged. Bilateral surgical drains are present as well as a mediastinal drain. Left PICC tip at the l ower SVC level. A left-sided chest tube is visualized. No appreciable pneumothorax. There is continue d hazy density extending up to the mid lung level and left basilar opacity. Overall findings are rela tively similar. Impression: 1. Overall stable findings suggesting CHF with pulmonary vascular congestion. 2. Moderate layering right pleural effusion with prominent right basilar atelectasis and/or consolida tion. 3. Small left pleural effusion with prominent adjacent atelectasis and/or consolidation.
[2016-10-18] MEDS: POTASSIUM CHLORIDE 10 MEQ in WATER FOR INJECTION 1 100ML.BAG IVPB SCH ×2 (08:19→10:17)
[2016-10-18] MEDS: LACTATED RINGERS 1,000 ML IV SCH (08:20)
[2016-10-18] MEDS: HEPARIN SODIUM,PORCINE 5,000 UNIT/ML 1 ML VIAL SQ SCH ×2 (08:20→16:42)
[2016-10-18] MEDS: DIGOXIN 250 MCG/ML 2 ML AMP IVP SCH (08:27)
[2016-10-18] MEDS: PANTOPRAZOLE 40 MG/10 ML VIAL IVP SCH (08:29)
[2016-10-18] MEDS ORDERED: DEXTROSE 5% IN WATER 1,000 ML IV ONE (08:37)
--- NOTE | 2016-10-18 09:50 | P.PN ---
Progress Note - Text CV Surgery Nursing POD: #21 aortic valve replacement, mitral valve repair modified Frederick maze procedure mediastinal lymph node biopsy Postoperative day #3 sternal exploration due to sternal debridement and wound closure with bilateral pectoralis major myocutaneous advancement flaps Postop day #3 placement of left chest tube for left pleural effusion Patient awake and alert, oriented to person and place, no distress noted, no specific complaints. Patient has generalized weakness. Vital Signs: Afebrile, T-max 98.1F Vital Signs - 24 hr 10/17/16 10/17/16 10/17/16 09:52 10:00 11:00 Temperature Pulse Rate 70 70 76 Respiratory 9 L 12 Rate O2 Sat by Pulse 98 91 L Oximetry 10/17/16 10/17/16 10/17/16 12:00 12:28 12:43 Temperature 97.9 F Pulse Rate 73 72 74 Respiratory 14 Rate O2 Sat by Pulse 94 L Oximetry 10/17/16 10/17/16 10/17/16 13:00 14:00 15:00 Temperature Pulse Rate 76 76 76 Respiratory 10 L 14 14 Rate O2 Sat by Pulse 93 L 97 97 Oximetry 10/17/16 10/17/16 10/17/16 16:00 16:41 16:55 Temperature 97.5 F L Pulse Rate 76 75 74 Respiratory 16 Rate O2 Sat by Pulse 95 Oximetry 10/17/16 10/17/16 10/17/16 17:00 18:00 19:00 Temperature Pulse Rate 77 77 73 Respiratory 8 L 14 12 Rate O2 Sat by Pulse 92 L 94 L 97 Oximetry 10/17/16 10/17/16 10/17/16 20:00 20:22 21:00 Temperature 98 F Pulse Rate 71 72 74 Respiratory 10 L 11 L Rate O2 Sat by Pulse 97 94 L Oximetry 10/17/16 10/17/16 10/18/16 22:00 23:00 00:00 Temperature 98.1 F Pulse Rate 71 72 72 Respiratory 11 L 13 11 L Rate O2 Sat by Pulse 98 96 96 Oximetry 10/18/16 10/18/16 10/18/16 00:01 00:22 01:00 Temperature Pulse Rate 72 72 77 Respiratory 13 Rate O2 Sat by Pulse 95 Oximetry 10/18/16 10/18/16 10/18/16 02:00 03:00 03:26 Temperature Pulse Rate 75 70 74 Respiratory 14 10 L Rate O2 Sat by Pulse 95 97 Oximetry 10/18/16 10/18/16 10/18/16 03:40 04:00 05:00 Temperature 97.5 F L Pulse Rate 78 77 76 Respiratory 15 13 Rate O2 Sat by Pulse 93 L 94 L Oximetry 10/18/16 10/18/16 10/18/16 06:00 07:00 07:54 Temperature Pulse Rate 74 74 71 Respiratory 10 L 12 Rate O2 Sat by Pulse 96 96 Oximetry 10/18/16 10/18/16 10/18/16 08:00 08:14 09:00 Temperature 98.0 F Pulse Rate 72 75 77 Respiratory 13 12 Rate O2 Sat by Pulse 96 96 Oximetry ABP, PAP, CO, CI - Last 8 Hours Arterial Blood Pressure 144/56 Arterial Blood Pressure 125/50 Arterial Blood Pressure 121/50 Arterial Blood Pressure 111/46 Arterial Blood Pressure 120/50 Arterial Blood Pressure 109/46 Arterial Blood Pressure 110/48 Arterial Blood Pressure 114/47 Labs: Short CBC 10/18/16 Range/Units 05:00 WBC 9.5 (3.8-10.6) k/uL Hgb 8.6 L (13.0-17.5) gm/dL Hct 28.0 L (39.0-53.0) % Plt Count 170 (150-450) k/uL Neutrophils # 8.1 H (1.3-7.7) k/uL BMP 10/18/16 05:00 Sodium 156 H Potassium 3.6 Chloride 118 H Carbon Dioxide 32 H BUN 50 H Creatinine 1.12 Glucose 115 H Calcium 7.6 L Liver Function 10/18/16 Range/Units 05:00 Total Bilirubin 0.9 (0.2-1.3) mg/dL AST 27 (17-59) U/L ALT 38 (21-72) U/L Alkaline Phosphatase 62 (38-126) U/L Albumin 2.4 L (3.5-5.0) g/dL Lungs: Breath sounds diminished bilaterally O2 sat: 96% on 6 L of oxygen delivered via nasal cannula Heart: S1S2, regular rate and rhythm bedside telemetry shows a normal sinus rhythm with a rate of 77 Sternum stable, chest incision clean with dressing clean and dry. Abdomen: Soft, Positive bowel sounds present in all 4 quadrants. CBGs: 117-167 mg/dL U/O: Approximately 400 mL in the last 12 hours Chest Tubes: Left pleural chest tube without visible air leak drained 190 mL in the last 24 hours Drains: Left lateral Shahriar-Esquivel drain with 125 mL of serosanguineous drainage in the last 24 hours Medial Shahriar-Esquivel drain with 275 mL of serosanguineous drainage in the last 24 hours Right lateral Shahriar-Esquivel drain with 115 mL of serosanguineous drainage in the last 24 hours Intake & Output 10/16/16 10/17/16 10/18/16 10/19/16 06:59 06:59 06:59 06:59 Intake Total 1134.363 453.120 647.0 26 Output Total 3340 2060 2150 150 Balance -2205.637 -1606.880 -1503.0 -124 Weight 112.2 kg 113 kg 111 kg Active Medications Amiodarone HCl (Cordarone) 200 mg PO BID@0600,1800 [facility] Last Admin: 10/18/16 06:14 Dose: Not Given Aspirin (Aspirin) 81 mg PO DAILY [facility] Last Admin: 10/17/16 08:06 Dose: Not Given Digoxin (Lanoxin) 125 mcg IVP DAILY [facility] Last Admin: 10/18/16 08:27 Dose: 125 mcg Heparin Sodium (Porcine) (Heparin) 5,000 unit SQ Q8HR [facility] Last Admin: 10/18/16 08:20 Dose: 5,000 unit Piperacillin/Tazobactam/ (Dextrose 3.375 gm/ IV Solution) 50 mls @ 12.5 mls/hr IVPB Q8H [facility] Last Admin: 10/18/16 04:48 Dose: 12.5 mls/hr Dextrose/Water (Dextrose 5%-Water Iv Soln) 1,000 mls @ 20 mls/hr IV .Q24H ONE Stop: 10/19/16 08:36 Ibuprofen (Motrin Oral Susp Cup) 600 mg PO Q6H PRN PRN Reason: Fever and/or Mild Pain Last Admin: 10/11/16 02:21 Dose: 600 mg Insulin Human Lispro (Humalog) 0 unit SQ Q4H [facility] PRN Reason: Protocol Last Admin: 10/18/16 08:20 Dose: Not Given Ipratropium Mcleod (Atrovent Nebulized) 0.5 mg INHALATION RT-Q4H [facility] Last Admin: 10/18/16 07:54 Dose: 0.5 mg Levalbuterol HCl (Xopenex Nebulized (Conc)) 1.25 mg INHALATION RT-Q4H [facility] Last Admin: 10/18/16 07:54 Dose: 1.25 mg Levothyroxine Sodium (Synthroid) 150 mcg PO DAILY@0630 [facility] Last Admin: 10/18/16 06:15 Dose: Not Given Metoprolol Tartrate (Lopressor) 25 mg PO BID [facility] Last Admin: 10/17/16 20:36 Dose: Not Given Miscellaneous Information (Potassium Per Protocol) 1 each MISCELLANE DAILY PRN ; Protocol PRN Reason: Per Protocol Miscellaneous Information (Magnesium Per Protocol) 1 each MISCELLANE DAILY PRN ; Protocol PRN Reason: Per Protocol Miscellaneous Information (Phosphorus Per Protocol) 1 each MISCELLANE DAILY PRN ; Protocol PRN Reason: Per Protocol Pantoprazole Sodium (Protonix) 40 mg IVP DAILY [facility] Last Admin: 10/18/16 08:29 Dose: 40 mg Sodium Chloride (Saline Flush) 20 ml IV Q4HR PRN PRN Reason: PICC Line Sodium Chloride (Saline Flush) 10 ml IV WEEKLY [facility] Last Admin: 10/18/16 08:29 Dose: Not Given Plan: Continue aggressive pulmonary toilet utilizing coughing and deep breathing, incentive spirometry, and inhalation treatments per respiratory therapy Discontinue arterial line Change IV fluid to D5W due to elevated sodium Await swallow evaluation
--- NOTE | 2016-10-18 09:55 | P.PN ---
Subjective Principal diagnosis: Status post open-heart surgery, respiratory failure, atrial fibrillation and CHF and sternal dehiscence Patient is a status post repair of the mitral valve and also aortic valve replacement. Patient seemed to be doing better. His remained extubated. He seemed to be much more alert. He passed a swallow evaluation and the diet is being advanced. His maintaining sinus rhythm. We will continue current medical therapy and increase activity as tolerated Objective - Vital Signs Vital signs: Vital Signs Temp 98.0 F 10/18/16 08:00 Pulse 77 10/18/16 09:00 Resp 12 10/18/16 09:00 BP 100/55 10/16/16 08:00 Pulse Ox 96 10/18/16 09:00 Intake & Output 10/17/16 10/18/16 10/18/16 18:59 06:59 18:59 Intake Total 391.0 256 26 Output Total 1260 890 150 Balance -869.0 -634 -124 Weight 111 kg Intake: IV 391.0 256 26 Lactated Ringers 1,000 ml 80 120 20 @ 20 mls/hr IV .Q24H [facility] Rx#:[id number] Piperacillin-Tazobactam 3 75.0 100 .375 gm In Dextrose/Water 1 50ml.bag @ 12.5 mls/hr IVPB Q8H [facility] Rx#: [id number] Potassium Chloride 10 meq 200 In Water For Injection 1 100ml.bag @ 100 mls/hr IVPB Q1HR [facility] Rx#: [id number] Pressure Bag 36 36 6 Output: Chest Tube Drainage 120 70 70 LEFT PLEURAL 120 70 70 Drainage 390 125 Left Lateral Chest 110 15 Medial Chest 180 95 Right Lateral Chest 100 15 Urine 750 695 80 Other: Voiding Method Indwelling Catheter Indwelling Catheter ABP, PAP, CO, CI - Last Documented Arterial Blood Pressure 144/56 - Exam GENERAL EXAM: Patient is extubated. He is alert, awake. He is still weak and frail HEENT: Normocephalic. Normal reaction of pupils, equal size, normal range of extraocular motion. No erythema or exudates in the throat. NECK: No masses, no nuchal rigidity. CHEST: No chest wall deformity. LUNGS: [Diminished breath sounds, scattered rhonchi HEART: Irregular heart rhythm ABDOMEN: No hepatosplenomegaly, normal bowel sounds, no guarding or rigidity. SKIN: No rashes CENTRAL NERVOUS SYSTEM: Sedated EXTREMITIES: No cyanosis, clubbing or edema. - Labs CBC & Chem 7: 10/18/16 05:00 10/18/16 05:00 Labs: Abnormal Lab Results - Last 24 Hours (Table) 10/17/16 10/17/16 10/17/16 Range/Units 12:24 15:25 20:35 RBC (4.30-5.90) m/uL Hgb (13.0-17.5) gm/dL Hct (39.0-53.0) % MCV (80.0-100.0) fL MCHC (31.0-37.0) g/dL RDW (11.5-15.5) % Neutrophils # (1.3-7.7) k/uL Lymphocytes # (1.0-4.8) k/uL PT (9.0-12.0) sec Sodium (137-145) mmol/L Chloride (98-107) mmol/L Carbon Dioxide (22-30) mmol/L BUN (9-20) mg/dL Glucose (74-99) mg/dL POC Glucose (mg/dL) 129 H 126 H 124 H (75-99) mg/dL Calcium (8.4-10.2) mg/dL Magnesium (1.6-2.3) mg/dL Total Protein (6.3-8.2) g/dL Albumin (3.5-5.0) g/dL 10/17/16 10/18/16 10/18/16 Range/Units 23:27 04:48 05:00 RBC (4.30-5.90) m/uL Hgb (13.0-17.5) gm/dL Hct (39.0-53.0) % MCV (80.0-100.0) fL MCHC (31.0-37.0) g/dL RDW (11.5-15.5) % Neutrophils # (1.3-7.7) k/uL Lymphocytes # (1.0-4.8) k/uL PT 12.8 H (9.0-12.0) sec Sodium (137-145) mmol/L Chloride (98-107) mmol/L Carbon Dioxide (22-30) mmol/L BUN (9-20) mg/dL Glucose (74-99) mg/dL POC Glucose (mg/dL) 121 H 117 H (75-99) mg/dL Calcium (8.4-10.2) mg/dL Magnesium (1.6-2.3) mg/dL Total Protein (6.3-8.2) g/dL Albumin (3.5-5.0) g/dL 10/18/16 10/18/16 10/18/16 Range/Units 05:00 05:00 07:59 RBC 2.78 L (4.30-5.90) m/uL Hgb 8.6 L (13.0-17.5) gm/dL Hct 28.0 L (39.0-53.0) % MCV 100.5 H (80.0-100.0) fL MCHC 30.7 L (31.0-37.0) g/dL RDW 18.6 H (11.5-15.5) % Neutrophils # 8.1 H (1.3-7.7) k/uL Lymphocytes # 0.6 L (1.0-4.8) k/uL PT (9.0-12.0) sec Sodium 156 H (137-145) mmol/L Chloride 118 H (98-107) mmol/L Carbon Dioxide 32 H (22-30) mmol/L BUN 50 H (9-20) mg/dL Glucose 115 H (74-99) mg/dL POC Glucose (mg/dL) 126 H (75-99) mg/dL Calcium 7.6 L (8.4-10.2) mg/dL Magnesium 3.3 H (1.6-2.3) mg/dL Total Protein 5.2 L (6.3-8.2) g/dL Albumin 2.4 L (3.5-5.0) g/dL Microbiology - Last 24 Hours (Table) 10/15/16 14:40 Anaerobic Culture - Preliminary Chest 10/15/16 14:40 Gram Stain - Final Chest Wound Culture - Final 10/15/16 14:40 Anaerobic Culture - Preliminary Chest 10/15/16 14:40 Anaerobic Culture - Preliminary Chest 10/15/16 14:40 Gram Stain - Preliminary Chest Tissue Culture - Preliminary 10/15/16 14:40 Gram Stain - Final Chest Wound Culture - Final 10/11/16 06:40 Blood Culture - Final Blood No Growth after 144 hours Assessment and Plan (1) Acute renal failure Status: Acute (2) Acute respiratory failure Status: Acute (3) Status post aortic valve replacement Status: Acute (4) Status post mitral valve repair Status: Acute (5) Atrial fibrillation with RVR Status: Acute (6) Congestive heart failure due to valvular disease Status: Acute Plan: Continue current management. Increase physical activity. Advance diet. Possible transfer to telemetry within next 24-48 hours
[2016-10-18] MEDS: METOPROLOL TARTRATE 25 MG TAB PO SCH ×2 (10:17→20:27)
[2016-10-18] MEDS: ASPIRIN 81 MG CHEW PO SCH (10:17)
[2016-10-18 11:52] LABS: Glucose,Whole Blood 180 mg/dL (75-99)
--- NOTE | 2016-10-18 15:20 | CDI ---
Janeth Franklin [address] [facility] [place] [address] Documentation Clarification Form Date: 10/12/2016 9:55:00 AM From: Gerson Sawyer RN, BSN, CDI Admit Date: 10/06/2016 11:17:00 AM Patient Name: Jn Stevenson Visit Number: [id number] Dr. Dayami Guadarrama: "CHF due to valvular disease" is documented in multiple pulmonary progress notes. History/Risk Factors:71 yo male with recent history of aortic valve replacement and mitral valve repair. Additional medical history includes atrial fibrillation, rheumatic fever and moderate pulmonary hypertension. +hx smoking. Clinical Indicators: VS/Pulse OX: 153/96, 141, 24, 98.3 and 90% 4L (on admission) BNP: 6520 Echocardiogram Results: LVEF 50-55% (systolic function is low-normal), LA severely dilated, Afib, normally functioning bioprosthetic valve, mild mitral/ tricuspid regurgitation. Chest X Ray: findings c/w CHF exacerbation redemonstrated as there is cardiomegaly w/mild-mod central vascular congestion and small to moderate sized b/l pleural effusions Treatment: Lasix gtt, mechanical ventilation, Amio gtt, Lopressor, Digoxin Consults: cardiology In your professional opinion, can you please clarify the acuity and type of CHF if known? Acute Chronic Acute on Chronic AND Systolic Diastolic Systolic and Diastolic Unable to determine Other, please specify If known, please specify if Heart Failure is due to: Hypertension Rheumatic Fever Please document in your progress notes and discharge summary in order to capture severity of illness and risk of mortality. Include clinical findings that support your diagnosis. FYI: Press F11 to launch patient chart. Place X here if this finding has no clinical significance, is not applicable or if you are not able to provide any additional documentation. WILSON
[2016-10-18 16:13] LABS: Glucose,Whole Blood 130 mg/dL (75-99)
--- NOTE | 2016-10-18 17:45 | P.PN ---
Subjective This is a 61-year-old male patient was undergone a cardiac surgery which involved aVR with mitral valve repair on 09/29/2016. The patient was discharged home on 10/04/2016. Following that the patient was readmitted to the hospital because of increased shortness of breath, acute respiratory failure , cough, syncope and sternal wound dehiscence. The patient was seen by cardiology thoracic surgery and he was taken back to the operating room where he underwent a closure of the sternal wound with a muscle flap on 10/15/2016. The patient was extubated off the mechanical ventilator on 10/16/2016. He initially had difficulties with swallowing yet he is currently doing better. He developed a right-sided pleural effusion he had an attempt for thoracentesis was done yesterday by Dr. Mercer and this failed. Apparently there was no adequate fluid drainage during the procedure. As such the procedure was aborted. The patient has a left-sided chest tube in place which is draining approximately less than 100 mL over the past 24 hours and the plan is to take of the chest tube. He is actually taking well at 6 L/m nasal cannula. His is or 82. He is hemodynamically stable. He is pulling approximately 500 on the incentive spirometer. The patient has MEGHAN drains on his sternal wound a total of 3 and the drainage is not active at this point. The patient is hemodynamically stable on no pressors. His CODE STATUS is full at this point. Objective - Vital Signs Vital signs: Vital Signs Temp 98.2 F 10/18/16 12:00 Pulse 68 10/18/16 17:04 Resp 29 H 10/18/16 17:00 BP 100/55 10/16/16 08:00 Pulse Ox 97 10/18/16 17:00 Intake & Output 10/17/16 10/18/16 10/18/16 18:59 06:59 18:59 Intake Total 391.0 256 760 Output Total 5474 417 7731 Balance -869.0 -634 -304 Weight 111 kg 111 kg Intake: IV 391.0 256 100 Lactated Ringers 1,000 ml 80 120 20 @ 20 mls/hr IV .Q24H [facility] Rx#:[id number] Piperacillin-Tazobactam 3 75.0 100 50 .375 gm In Dextrose/Water 1 50ml.bag @ 12.5 mls/hr IVPB Q8H [facility] Rx#: [id number] Potassium Chloride 10 meq 200 In Water For Injection 1 100ml.bag @ 100 mls/hr IVPB Q1HR [facility] Rx#: [id number] Pressure Bag 36 36 30 Intake, IV Titration 660 Amount Dextrose 5% in Water 1, 460 000 ml @ 20 mls/hr IV . Q24H [facility] Rx#:[id number] Potassium Chloride 10 meq 200 In Water For Injection 1 100ml.bag @ 100 mls/hr IVPB Q1H [facility] Rx#: [id number] Output: Chest Tube Drainage 120 70 70 LEFT PLEURAL 120 70 70 Drainage 390 125 190 Left Lateral Chest 110 15 45 Medial Chest 180 95 90 Right Lateral Chest 100 15 55 Urine 750 695 804 Other: Voiding Method Indwelling Catheter Indwelling Catheter Indwelling Catheter ABP, PAP, CO, CI - Last Documented Arterial Blood Pressure 137/57 - Exam Head exam was generally normal. There was no scleral icterus or corneal arcus. Mucous membranes were moist.Neck was supple and without jugular venous distension, thyromegaly, or carotid bruits. Carotids were easily palpable bilaterally. There was no adenopathy. Lung sounds are diminished in the lung base bilaterally especially in the right lung base. The patient has weak and poor respiratory efforts. Patient had a left-sided chest tube in place. Heart sounds are regular, positive S1-S2 and there is no significant murmurs appreciated. Sternum was stable clean and intact and the patient's sternal wound is covered with a Aquacel silver dressing. MEGHAN drains were visualized. No active drainage from the wounds.Abdominal exam revealed normal bowel sounds. The abdomen was soft, non-tender, and without masses, organomegaly, or appreciable enlargement of the abdominal aorta.Examination of the extremities revealed easily palpable radial, femoral and pedal pulses. There was no cyanosis , clubbing or edema. - Labs CBC & Chem 7: 10/18/16 05:00 10/18/16 05:00 Labs: Abnormal Lab Results - Last 24 Hours (Table) 10/17/16 10/17/16 10/18/16 Range/Units 20:35 23:27 04:48 RBC (4.30-5.90) m/uL Hgb (13.0-17.5) gm/dL Hct (39.0-53.0) % MCV (80.0-100.0) fL MCHC (31.0-37.0) g/dL RDW (11.5-15.5) % Neutrophils # (1.3-7.7) k/uL Lymphocytes # (1.0-4.8) k/uL PT (9.0-12.0) sec Sodium (137-145) mmol/L Chloride (98-107) mmol/L Carbon Dioxide (22-30) mmol/L BUN (9-20) mg/dL Glucose (74-99) mg/dL POC Glucose (mg/dL) 124 H 121 H 117 H (75-99) mg/dL Calcium (8.4-10.2) mg/dL Magnesium (1.6-2.3) mg/dL Total Protein (6.3-8.2) g/dL Albumin (3.5-5.0) g/dL 10/18/16 10/18/16 10/18/16 Range/Units 05:00 05:00 05:00 RBC 2.78 L (4.30-5.90) m/uL Hgb 8.6 L (13.0-17.5) gm/dL Hct 28.0 L (39.0-53.0) % MCV 100.5 H (80.0-100.0) fL MCHC 30.7 L (31.0-37.0) g/dL RDW 18.6 H (11.5-15.5) % Neutrophils # 8.1 H (1.3-7.7) k/uL Lymphocytes # 0.6 L (1.0-4.8) k/uL PT 12.8 H (9.0-12.0) sec Sodium 156 H (137-145) mmol/L Chloride 118 H (98-107) mmol/L Carbon Dioxide 32 H (22-30) mmol/L BUN 50 H (9-20) mg/dL Glucose 115 H (74-99) mg/dL POC Glucose (mg/dL) (75-99) mg/dL Calcium 7.6 L (8.4-10.2) mg/dL Magnesium 3.3 H (1.6-2.3) mg/dL Total Protein 5.2 L (6.3-8.2) g/dL Albumin 2.4 L (3.5-5.0) g/dL 10/18/16 10/18/16 10/18/16 Range/Units 07:59 11:50 16:11 RBC (4.30-5.90) m/uL Hgb (13.0-17.5) gm/dL Hct (39.0-53.0) % MCV (80.0-100.0) fL MCHC (31.0-37.0) g/dL RDW (11.5-15.5) % Neutrophils # (1.3-7.7) k/uL Lymphocytes # (1.0-4.8) k/uL PT (9.0-12.0) sec Sodium (137-145) mmol/L Chloride (98-107) mmol/L Carbon Dioxide (22-30) mmol/L BUN (9-20) mg/dL Glucose (74-99) mg/dL POC Glucose (mg/dL) 126 H 180 H 130 H (75-99) mg/dL Calcium (8.4-10.2) mg/dL Magnesium (1.6-2.3) mg/dL Total Protein (6.3-8.2) g/dL Albumin (3.5-5.0) g/dL Microbiology - Last 24 Hours (Table) 10/15/16 14:40 Gram Stain - Preliminary Chest Tissue Culture - Preliminary 10/15/16 14:40 Anaerobic Culture - Preliminary Chest 10/15/16 14:40 Gram Stain - Final Chest Wound Culture - Final 10/15/16 14:40 Anaerobic Culture - Preliminary Chest 10/15/16 14:40 Anaerobic Culture - Preliminary Chest 10/15/16 14:40 Gram Stain - Final Chest Wound Culture - Final Assessment and Plan Plan: Assessment 1 status post aortic valve replacement and mitral valve repair and the patient is postop day #19 2 sternal wound dehiscence, post muscle flap, postop day #3 3 post extubation and the patient was weaned off the mechanical ventilator on 4 bilateral pleural effusion, status post failed thoracentesis of the right 5 left-sided chest tube with diminished output 6 paroxysmal fibrillation, paroxysmal currently in sinus rhythm 7 hypertension 8 hyperlipidemia 9 thyroid cancer with a previous thyroidectomy 10 osteoarthritis 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 The patient was seen by Dr. Ramos. Recommendations were treating this patient with itraconazole 100 mg by mouth twice a day. 12 sedation marcescens and Haemophilus influenza in the sputum, currently on IV Zosyn Plan May consider removal of the left-sided chest tube. Continue the incentive spirometer. Would repeat a chest x-ray in the morning and perform another attempt for thoracentesis of there is any sizable effusion. Meanwhile, the patient is doing well. The patient will be kept in ICU for 24 hours. We'll make further recommendations based on his progress. Discussed the case with Dr. Jae Riggs from cardiothoracic surgery.
[2016-10-18 20:18] LABS: Glucose,Whole Blood 142 mg/dL (75-99)
--- NOTE | 2016-10-18 21:09 | P.PN ---
Subjective Principal diagnosis: Respiratory failure This is a 71-year-old male who came in the hospital on September 23 and underwent a JAYDE and heart catheterization showing a ruptured chordae tendonae, mitral regurgitation, moderate pulmonary hypertension, with history of paroxysmal atrial fibrillation and heart failure. 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 With this the patient was initiated to itraconazole. He however developed atrial fibrillation. Because of this he was initiated to amiodarone. The dose of itraconazole was reduced by 50%. There is no evidence of any ulcerations of the QT interval while he was in hospital. He eventually was discharged home. It is related that he was not able to obtain the itraconazole. In this is going to be addressed in the coming days. However the brought him to the emergency room feeling very short of breath. He was having abdominal distention with increasing shortness of breath. Through his stay in emergency center he continues to feel more more short of breath. He then developed respiratory failure which required intubation sedation mechanical ventilation. Over the following days he is improved was extubated in his continue to improve. His extensive edema has improved. Especially the massive abdominal edema that he was having. Extremity edema is also improved. He is awake and interactive still having some difficulty with his voice was able to answer simple questions. Nursing staff relates he's eating considerably better Objective - Vital Signs Vital signs: Vital Signs Temp 98.2 F 10/18/16 12:00 Pulse 69 10/18/16 20:49 Resp 15 10/18/16 19:00 BP 100/55 10/16/16 08:00 Pulse Ox 93 L 10/18/16 19:00 Intake & Output 10/18/16 10/18/16 10/19/16 06:59 18:59 06:59 Intake Total 256 833 73 Output Total 890 1124 100 Balance -634 -291 -27 Weight 111 kg 111 kg Intake: IV 256 103 3 Lactated Ringers 1,000 ml 120 20 @ 20 mls/hr IV .Q24H [facility] Rx#:[id number] Piperacillin-Tazobactam 3 100 50 .375 gm In Dextrose/Water 1 50ml.bag @ 12.5 mls/hr IVPB Q8H [facility] Rx#: [id number] Pressure Bag 36 33 3 Intake, IV Titration 730 70 Amount Dextrose 5% in Water 1, 530 70 000 ml @ 70 mls/hr IV . [id number] [facility] Rx#:[id number] Potassium Chloride 10 meq 200 In Water For Injection 1 100ml.bag @ 100 mls/hr IVPB Q1H [facility] Rx#: [id number] Output: Chest Tube Drainage 70 70 LEFT PLEURAL 70 70 Drainage 125 190 Left Lateral Chest 15 45 Medial Chest 95 90 Right Lateral Chest 15 55 Urine 695 864 100 Other: Voiding Method Indwelling Catheter Indwelling Catheter ABP, PAP, CO, CI - Last Documented Arterial Blood Pressure 140/52 - Exam This is a 71-year-old male. comfortable HEENT: Head is atraumatic, normocephalic. Pupils equal, round. Sclerae is anicteric. Conjunctiva slightly pale. Mucous membranes of the mouth are moist. No thrush noted. NECK: Supple. No JVD. No lymphadenopathy. No thyromegaly. LUNGS: There is symmetrical air entry. There are bibasal crackles. No significant bronchial sounds. HEART: Irregular with no no murmur Dressing on sternal wound with no breakthrough bleeding or drainage. Right sided pleural chest tube in place. ABDOMEN: Distinctly distended. Few bowel sounds are noted. Organomegaly is not detected. EXTREMITIES: +1 bilateral pedal edema. No calf tenderness. ORLIN hose in place. NEUROLOGICAL: Awake and interactive Skin :patient has an extensive dressing to the chest or there was difficulty with the dehiscence. - Labs CBC & Chem 7: 10/18/16 05:00 10/18/16 05:00 Labs: Abnormal Lab Results - Last 24 Hours (Table) 10/17/16 10/18/16 10/18/16 Range/Units 23:27 04:48 05:00 RBC (4.30-5.90) m/uL Hgb (13.0-17.5) gm/dL Hct (39.0-53.0) % MCV (80.0-100.0) fL MCHC (31.0-37.0) g/dL RDW (11.5-15.5) % Neutrophils # (1.3-7.7) k/uL Lymphocytes # (1.0-4.8) k/uL PT 12.8 H (9.0-12.0) sec Sodium (137-145) mmol/L Chloride (98-107) mmol/L Carbon Dioxide (22-30) mmol/L BUN (9-20) mg/dL Glucose (74-99) mg/dL POC Glucose (mg/dL) 121 H 117 H (75-99) mg/dL Calcium (8.4-10.2) mg/dL Magnesium (1.6-2.3) mg/dL Total Protein (6.3-8.2) g/dL Albumin (3.5-5.0) g/dL 10/18/16 10/18/16 10/18/16 Range/Units 05:00 05:00 07:59 RBC 2.78 L (4.30-5.90) m/uL Hgb 8.6 L (13.0-17.5) gm/dL Hct 28.0 L (39.0-53.0) % MCV 100.5 H (80.0-100.0) fL MCHC 30.7 L (31.0-37.0) g/dL RDW 18.6 H (11.5-15.5) % Neutrophils # 8.1 H (1.3-7.7) k/uL Lymphocytes # 0.6 L (1.0-4.8) k/uL PT (9.0-12.0) sec Sodium 156 H (137-145) mmol/L Chloride 118 H (98-107) mmol/L Carbon Dioxide 32 H (22-30) mmol/L BUN 50 H (9-20) mg/dL Glucose 115 H (74-99) mg/dL POC Glucose (mg/dL) 126 H (75-99) mg/dL Calcium 7.6 L (8.4-10.2) mg/dL Magnesium 3.3 H (1.6-2.3) mg/dL Total Protein 5.2 L (6.3-8.2) g/dL Albumin 2.4 L (3.5-5.0) g/dL 10/18/16 10/18/16 10/18/16 Range/Units 11:50 16:11 20:16 RBC (4.30-5.90) m/uL Hgb (13.0-17.5) gm/dL Hct (39.0-53.0) % MCV (80.0-100.0) fL MCHC (31.0-37.0) g/dL RDW (11.5-15.5) % Neutrophils # (1.3-7.7) k/uL Lymphocytes # (1.0-4.8) k/uL PT (9.0-12.0) sec Sodium (137-145) mmol/L Chloride (98-107) mmol/L Carbon Dioxide (22-30) mmol/L BUN (9-20) mg/dL Glucose (74-99) mg/dL POC Glucose (mg/dL) 180 H 130 H 142 H (75-99) mg/dL Calcium (8.4-10.2) mg/dL Magnesium (1.6-2.3) mg/dL Total Protein (6.3-8.2) g/dL Albumin (3.5-5.0) g/dL Microbiology - Last 24 Hours (Table) 10/15/16 14:40 Gram Stain - Preliminary Chest Tissue Culture - Preliminary 10/15/16 14:40 Anaerobic Culture - Preliminary Chest 10/15/16 14:40 Gram Stain - Final Chest Wound Culture - Final Laboratory Results WBC 9.5 k/uL (3.8-10.6) 10/18/16 05:00 RBC 2.78 m/uL (4.30-5.90) L 10/18/16 05:00 Hgb 8.6 gm/dL (13.0-17.5) L 10/18/16 05:00 Hct 28.0 % (39.0-53.0) L 10/18/16 05:00 MCV 100.5 fL (80.0-100.0) H 10/18/16 05:00 MCH 30.8 pg (25.0-35.0) 10/18/16 05:00 MCHC 30.7 g/dL (31.0-37.0) L 10/18/16 05:00 RDW 18.6 % (11.5-15.5) H 10/18/16 05:00 Plt Count 170 k/uL (150-450) 10/18/16 05:00 Neutrophils % 85 % 10/18/16 05:00 Neutrophils % (Manual) 85.5 % 10/08/16 04:20 Band Neutrophils % 0.5 % 10/08/16 04:20 Lymphocytes % 7 % 10/18/16 05:00 Lymphocytes % (Manual) 5.5 % 10/08/16 04:20 Monocytes % 4 % 10/18/16 05:00 Monocytes % (Manual) 4.0 % 10/08/16 04:20 Eosinophils % 3 % 10/18/16 05:00 Eosinophils % (Manual) 3.0 % 10/08/16 04:20 Basophils % 0 % 10/18/16 05:00 Metamyelocytes % 1.0 % 10/08/16 04:20 Myelocytes % 0.5 % 10/08/16 04:20 Neutrophils # 8.1 k/uL (1.3-7.7) H 10/18/16 05:00 Neutrophils # (Manual) 16.2 k/uL (1.3-7.7) H 10/08/16 04:20 Lymphocytes # 0.6 k/uL (1.0-4.8) L 10/18/16 05:00 Lymphocytes # (Manual) 1.0 k/uL (1.0-4.8) 10/08/16 04:20 Monocytes # 0.4 k/uL (0-1.0) 10/18/16 05:00 Monocytes # (Manual) 0.8 k/uL (0-1.0) 10/08/16 04:20 Eosinophils # 0.3 k/uL (0-0.7) 10/18/16 05:00 Eosinophils # (Manual) 0.6 k/uL (0-0.7) 10/08/16 04:20 Basophils # 0.0 k/uL (0-0.2) 10/18/16 05:00 Nucleated RBCs 0 /100 WBC (0-0) 10/08/16 04:20 Manual Slide Review Performed 10/08/16 04:20 Large Platelets Present 10/06/16 21:00 Polychromasia Present 10/08/16 04:20 Hypochromasia Marked 10/18/16 05:00 Poikilocytosis Slight 10/18/16 05:00 Poikilocytosis (manual Present 10/08/16 04:20 Anisocytosis Slight 10/18/16 05:00 Macrocytosis Moderate 10/18/16 05:00 Ovalocytes Present 10/06/16 21:00 PT 12.8 sec (9.0-12.0) H 10/18/16 05:00 INR 1.3 (<1.1) 10/18/16 05:00 APTT 47.0 sec (22.0-30.0) H 10/14/16 06:30 D-Dimer 6.31 mg/L FEU (<0.60) H 10/06/16 21:00 Sample Site shyanne 10/16/16 04:45 ABG pH 7.46 (7.35-7.45) H 10/16/16 04:45 ABG pCO2 41 mmHg (35-45) 10/16/16 04:45 ABG pO2 101 mmHg (83-108) 10/16/16 04:45 ABG HCO3 29 mmol/L (21-25) H 10/16/16 04:45 ABG Total CO2 30 mmol/L (19-24) H 10/16/16 04:45 ABG O2 Saturation 98.0 % (94-97) H 10/16/16 04:45 ABG Base Excess 5.3 mmol/L 10/16/16 04:45 FiO2 50 % 10/16/16 04:45 Sodium 156 mmol/L (137-145) H 10/18/16 05:00 Potassium 3.6 mmol/L (3.5-5.1) 10/18/16 05:00 Chloride 118 mmol/L (98-107) H 10/18/16 05:00 Carbon Dioxide 32 mmol/L (22-30) H 10/18/16 05:00 Anion Gap 6 mmol/L 10/18/16 05:00 BUN 50 mg/dL (9-20) H 10/18/16 05:00 Creatinine 1.12 mg/dL (0.66-1.25) 10/18/16 05:00 Est GFR (MDRD) Af Amer >60 (>60 ml/min/1.73 sqM) 10/18/16 05:00 Est GFR (MDRD) Non-Af >60 (>60 ml/min/1.73 sqM) 10/18/16 05:00 Glucose 115 mg/dL (74-99) H 10/18/16 05:00 POC Glucose (mg/dL) 142 mg/dL (75-99) H 10/18/16 20:16 POC Glu Rigging Worker ID Marcelino Payne 10/18/16 20:[address] Glu mg/dL 120 mg/dL 10/07/16 05:18 Hemoglobin A1c 5.8 % (4.2-6.1) 10/07/16 05:18 Plasma Lactic Acid Samir 1.0 mmol/L (0.7-2.0) 10/07/16 05:18 Calcium 7.6 mg/dL (8.4-10.2) L 10/18/16 05:00 Ionized Calcium Guille 4.4 mg/dL (4.5-5.3) L 10/15/16 05:00 Phosphorus 3.6 mg/dL (2.5-4.5) 10/18/16 05:00 Magnesium 3.3 mg/dL (1.6-2.3) H 10/18/16 05:00 Total Bilirubin 0.9 mg/dL (0.2-1.3) 10/18/16 05:00 AST 27 U/L (17-59) 10/18/16 05:00 ALT 38 U/L (21-72) 10/18/16 05:00 Alkaline Phosphatase 62 U/L (38-126) 10/18/16 05:00 Total Creatine Kinase 736 U/L (55-170) H 10/06/16 09:50 CK-MB (CK-2) 7.2 ng/mL (0.0-2.4) H* 10/06/16 09:50 CK-MB (CK-2) Rel Index 1.0 10/06/16 09:50 Troponin I 1.510 ng/mL (0.000-0.034) H* 10/06/16 09:50 NT-Pro-B Natriuret Pep 6520 pg/mL 10/06/16 09:50 Total Protein 5.2 g/dL (6.3-8.2) L 10/18/16 05:00 Albumin 2.4 g/dL (3.5-5.0) L 10/18/16 05:00 TSH 32.400 mIU/L (0.465-4.680) H 10/06/16 09:50 Free T4 0.88 ng/dL (0.78-2.19) 10/06/16 09:50 Urine Color Dark Yellow 10/06/16 18:30 Urine Appearance Cloudy (Clear) 10/06/16 18:30 Urine pH 5.0 (5.0-8.0) 10/06/16 18:30 Ur Specific Henrietta 1.018 (1.001-1.035) 10/06/16 18:30 Urine Protein Trace (Negative) H 10/06/16 18:30 Urine Glucose (UA) Negative (Negative) 10/06/16 18:30 Urine Ketones Negative (Negative) 10/06/16 18:30 Urine Blood Negative (Negative) 10/06/16 18:30 Urine Nitrite Negative (Negative) 10/06/16 18:30 Urine Bilirubin 1+ (Negative) H 10/06/16 18:30 Urine Urobilinogen 4.0 mg/dL (<2.0) 10/06/16 18:30 Ur Leukocyte Esterase Negative (Negative) 10/06/16 18:30 Urine WBC 10 /hpf (0-5) H 10/06/16 18:30 Ur Squamous Epith Cells 2 /hpf (0-4) 10/06/16 18:30 Calcium Oxalate Crystal Occasional /hpf (None) H 10/06/16 18:30 Amorphous Sediment Occasional /hpf (None) H 10/06/16 18:30 Hyaline Casts 79 /lpf (0-2) H 10/06/16 18:30 Urine Mucus Rare /hpf (None) H 10/06/16 18:30 Vancomycin Trough 15.0 ug/mL 10/17/16 04:10 Digoxin 0.9 ng/mL 10/17/16 20:36 Blood Type O Positive 10/14/16 13:52 Blood Type Recheck No 10/14/16 13:52 Antibody Screen NEGATIVE 10/14/16 13:52 Crossmatch See Detail 10/14/16 13:52 Transfuse Platelets 10/15/16 10/14/16 13:52 Spec Expiration Date 10/17/2016235110/14/16 13:52 Microbiology 10/15/16 14:40 Chest Gram Stain - Preliminary 10/15/16 14:40 Chest Tissue Culture - Preliminary 10/15/16 14:40 Chest Anaerobic Culture - Preliminary 10/15/16 14:40 Chest Gram Stain - Final 10/15/16 14:40 Chest Wound Culture - Final 10/15/16 14:40 Chest Anaerobic Culture - Preliminary 10/15/16 14:40 Chest Anaerobic Culture - Preliminary 10/15/16 14:40 Chest Gram Stain - Final 10/15/16 14:40 Chest Wound Culture - Final 10/11/16 06:40 Blood Blood Culture - Final No Growth after 144 hours 10/11/16 11:47 Catheter Tip Catheter Tip Culture - Final 10/06/16 10:00 Blood Blood Culture - Final No Growth after 144 hours 10/06/16 21:00 Sputum Gram Stain - Final 10/06/16 21:00 Sputum Sputum Culture - Final Haemophilus influenzae Serratia marcescens Assessment and Plan (1) Acute respiratory failure Narrative/Plan: 71-year-old male with history of thyroid cancer recently was hospitalized at which point in time was having difficulties with congestive heart failure. He was noted evidence of aortic valve insufficiency and mitral valve regurgitation. There is also some lymphadenopathy noted within the chest. As he was taken to the operating room and aortic valve replacement occurred as well as mitral valve repair. Biopsy of mediastinal lymph nodes also occurred. 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 Patient was initiated to itraconazole. He however developed atrial fibrillation and was placed on amiodarone and the itraconazole dose was reduced. Upon discharge he has not been able to continue the itraconazole. However is only been home for a very short period of time we developed the progressive shortness of breath. At admission he has extensive edema in his abdominal cavity as well as evidence of congestive heart failure. Concerns to pneumonia given his significant leukocytosis and antibiotic therapy was begun with piperacillin tazobactam and vancomycin. Sputum culture with Haemophilus and Serratia resistant to Unasyn susceptible to Zosyn. We Will Continue Zosyn, Plan Another 48 Hours Ongoing aggressive supportive care is continuing Cardiothoracic surgery is following after the reconstruction of the sternum, cultures are negative so far. No evidence of any infection Patient had extensive leukocytosis at admission. This is now improved. Continue current antibiotic therapy while cultures are in process. Status: Acute (2) Status post aortic valve replacement Status: Acute (3) Status post mitral valve repair Status: Acute (4) Histoplasmosis Status: Acute
[2016-10-19] MEDS: HEPARIN SODIUM,PORCINE 5,000 UNIT/ML 1 ML VIAL SQ SCH ×4 (00:49→23:11)
[2016-10-19] MEDS: INSULIN LISPRO (humaLOG) 300 UNIT/3 ML VIAL SQ SCH ×7 (00:49→20:20)
[2016-10-19 00:51] LABS: Glucose,Whole Blood 126 mg/dL (75-99)
[2016-10-19 04:46] LABS: Glucose,Whole Blood 135 mg/dL (75-99)
[2016-10-19] MEDS: PIPERACILLIN-TAZOBACTAM 3.375 GM in DEXTROSE/WATER 1 50ML.BAG IVPB SCH ×3 (04:48→20:20)
[2016-10-19 05:31] LABS: Anion Gap 5 mmol/L; Blood Urea Nitrogen 40 mg/dL (9-20); Calcium 7.3 mg/dL (8.4-10.2); Carbon Dioxide 30 mmol/L (22-30); Chloride 111 mmol/L (98-107); Glucose 116 mg/dL (74-99); Non-African American GFR(MDRD) >60 (>60 ml/min/1.73 sqM); Phosphorous 3.2 mg/dL (2.5-4.5); Potassium 3.4 mmol/L (3.5-5.1); Sodium 146 mmol/L (137-145)
[2016-10-19 06:19] LABS: Anisocytosis Slight; Basophils % (A) 0 %; CH 29.7; CHCM 30.6; Eosinophils # (A) 0.7 k/uL (0-0.7); Eosinophils % (A) 7 %; HCT 26.7 % (39.0-53.0); HDW 4.09; HGB 8.4 gm/dL (13.0-17.5); Hypochromasia Marked; Luc # (Auto) 0.13; Luc % (Auto) 1; Lymphocytes # (A) 0.7 k/uL (1.0-4.8); Lymphocytes % (A) 7 %; MCH 30.8 pg (25.0-35.0); MCHC 31.5 g/dL (31.0-37.0); MCV 97.7 fL (80.0-100.0); Macrocytosis Slight; Mean Platelet Volume 8.3; Monocytes # (A) 0.3 k/uL (0-1.0); Monocytes % (A) 3 %; Neutrophils # (A) 8.1 k/uL (1.3-7.7); Neutrophils % (A) 81 %; Poikilocytosis Moderate; RBC 2.74 m/uL (4.30-5.90); RDW 18.1 % (11.5-15.5); WBC (Perox) 10.44
--- NOTE | 2016-10-19 06:28 | P.CONS ---
History of Present Illness - Chief Complaint Medical debility - History of Present Illness I had the abdomen see patient for inpatient rehab consultation with regard to cardiac debility. He was admitted to [facility] October 02 with recent AVR and MVR. Admitted with seizure-like event and shortness of breath. Seen by Dr. Ramos for antibiotic management. Seen by Dr. Jasso for ICU and pulmonary care. Seen by Dr. Lang miller to who believes patient underwent hypoxic event with a seizure-like event. Chest x-rays followed for congestive heart failure and right pleural effusion. PT and OT prescribed and I have added speech. Previous functional history: Difficult to elicit from patient due to cognition. Review of Systems Review of systems: Patient answering questions poorly and this was garnered from his exam. ENT: Denies sneezes or discharge. Eyes: Denies discharge or photophobia. Cardiac: Denies chest pain or palpitation. Pulmonary: At least mild shortness of breath. Gastrointestinal: Denies nausea, emesis, constipation, diarrhea. Genitourinary: Denies discharge or frequency. Musculoskeletal: Denies muscle or bone aches. Some edema ankles and feet. Neurologic: Mild to moderate confusion. Definite weakness particularly lowers. Endocrine: Denies shakes or sweats. Oncology: Denies cancers. Dermatologic: Denies rash, itching, pruritus. ALLERGY/immunology: Denies sneezes, rashes. Past Medical History Past Medical History: Atrial Fibrillation, Cancer, Heart Failure, Hyperlipidemia , Osteoarthritis (OA), Thyroid Disorder Additional Past Medical History / Comment(s): Current mediastinal lymphadenopathy with histoplasmosis being tx with ABX by Dr. Ramos, THYROID CANCER with surgery/radiation, varicose veins, rheumatic fever, paroxysmal atrial fibrillation, aortic valve insufficiency and mitral valve regurgitation- recent valvular surgery, moderate pulmonary hypertension History of Any Multi-Drug Resistant Organisms: None Reported Past Surgical History: Cardiac Valve Replacement, Heart Catheterization, Joint Replacement Additional Past Surgical History / Comment(s): thyroidectomy, total left knee replacement, 08/2016cardiac cath/fabiola, 09/29/16 aortic valve replacement with bovine valve, mitral valve repair, mediastinal lymph node biopsy, colonoscopies/ polypectomy-benign. Past Anesthesia/Blood Transfusion Reactions: No Reported Reaction Past Psychological History: No Psychological Hx Reported Additional Psychological History / Comment(s): Pt resides with his spouse. He has [facility] home care. He uses no assistive device. He has not driven since cardiac valve surgery, his spouse does the driving.SMOKED 3 PPD. Started smoking in 1959 and QUIT SMOKING 1979. Pt smoked cigars on and off from 1991 until 1999. He denies any medical marijuana, marijuana, street drug use. He states he has not had any alcohol intake for the past 3 months. He usually drinks 0-2 alcoholic beverages per day. He has traveled in the past in [place] , [place], [place], [facility], [place] and [place]. He has worked in the past at [employer]. Smoking Status: Former smoker Past Alcohol Use History: Rare Additional Past Alcohol Use History / Comment(s): SMOKED 3 PPD. Started smoking in 1959 and QUIT SMOKING 1979. Pt smoked cigars on and off from 1991 until 1999. He denies any medical marijuana, marijuana, street drug use. He states he has not had any alcohol intake for the past 3 months. He usually drinks 0-2 alcoholic beverages per day. He has traveled in the past in [place], [place] , [place] [facility] [place], [place] and [place]. He has worked in the past at [employer]. Past Drug Use History: None Reported - Past Family History Father Family Medical History: Coronary Artery Disease (CAD) Additional Family Medical History / Comment(s): Father at 76yrs from heart problems. Mother Family Medical History: No Reported History Additional Family Medical History / Comment(s): Mother at the age of 92 yrs. She had varicose veins Brother(s) Family Medical History: Cancer Additional Family Medical History / Comment(s): LIVER CA. BLOOD CLOT. Medications and Allergies Home Medications Medication Instructions Recorded Confirmed Type Aspirin 81 mg PO DAILY 11/14/14 10/06/16 History Levothyroxine Sodium [Synthroid] 150 mcg PO DAILY 11/15/14 10/06/16 History Furosemide [Lasix] 40 mg PO DAILY 09/22/16 10/06/16 History Potassium Chloride [K-Tab ER] 10 meq PO DAILY 09/22/16 10/06/16 History Multivitamins, Thera [Multivitamin 1 tab PO DAILY@1200 10/06/16 10/06/16 History (formulary)] Warfarin [Coumadin] 7.5 mg PO DAILY 10/06/16 10/06/16 History Allergies Allergy/AdvReac Type Severity Reaction Status Date / Time No Known Allergies Allergy Verified 10/06/16 10:22 Physical Exam Vitals: Vital Signs Temp Pulse Resp Pulse Ox 10/19/16 04:00 97.5 F L 87 15 97 10/19/16 03:56 26 H 10/19/16 03:00 95 26 H 96 10/19/16 02:00 62 14 98 10/19/16 01:00 65 12 96 10/19/16 00:00 98.2 F 65 15 97 10/18/16 23:00 68 12 97 10/18/16 22:00 69 14 95 10/18/16 21:00 70 14 96 10/18/16 20:49 69 10/18/16 20:33 68 10/18/16 20:00 70 18 94 L 10/18/16 19:00 72 15 93 L 10/18/16 18:00 71 19 90 L 10/18/16 17:04 68 10/18/16 17:00 68 29 H 97 10/18/16 16:50 67 10/18/16 16:00 67 29 H 96 10/18/16 15:00 68 19 96 10/18/16 14:00 73 19 96 10/18/16 13:00 77 17 96 10/18/16 12:03 72 10/18/16 12:00 98.2 F 81 29 H 93 L 10/18/16 11:45 74 10/18/16 11:00 78 24 94 L 10/18/16 10:00 78 11 L 96 10/18/16 09:00 77 12 96 10/18/16 08:14 75 10/18/16 08:00 98.0 F 72 19 96 10/18/16 07:54 71 10/18/16 07:00 74 12 96 Intake and Output 10/18/16 10/18/16 10/19/16 14:59 22:59 06:59 Intake Total 614 561 511 Output Total 264 1210 450 Balance 350 -649 61 Intake: IV 94 281 511 Dextrose 5% in Water 1, 210 490 000 ml @ 70 mls/hr IV . [id number] [facility] Rx#:[id number] Lactated Ringers 1,000 ml 20 @ 20 mls/hr IV .Q24H [facility] Rx#:[id number] Piperacillin-Tazobactam 3 50 50 .375 gm In Dextrose/Water 1 50ml.bag @ 12.5 mls/hr IVPB Q8H [facility] Rx#: [id number] Pressure Bag 24 21 21 Intake, IV Titration 520 280 Amount Dextrose 5% in Water 1, 320 280 000 ml @ 70 mls/hr IV . [id number] [facility] Rx#:[id number] Potassium Chloride 10 meq 200 In Water For Injection 1 100ml.bag @ 100 mls/hr IVPB Q1H [facility] Rx#: [id number] Output: Chest Tube Drainage 70 LEFT PLEURAL 70 Drainage 50 190 40 Left Lateral Chest 35 10 0 Medial Chest 10 130 40 Right Lateral Chest 5 50 0 Urine 144 1020 410 Other: Voiding Method Indwelling Catheter Indwelling Catheter Indwelling Catheter Weight 111 kg 111 kg 113.3 kg Patient Weight 10/19/16 06:59 Weight 113.3 kg ABP, PAP, CO, CI - Last 8 Hours Arterial Blood Pressure 110/47 Arterial Blood Pressure 117/63 Arterial Blood Pressure 143/54 Arterial Blood Pressure 134/55 Arterial Blood Pressure 132/51 Arterial Blood Pressure 132/51 Skin: Good color, texture, turgor. General: Medium build and comfortable appearance. Head: Normocephalic, atraumatic. Eyes: Symmetric. Pupils equal round. Ears: Symmetric. Hearing within normal limits. Mouth: Clear. Neck: Supple. Carotid without bruit. Cardiac: Regular rate and rhythm. Lungs: Clear anteriorly and posteriorly. Abdomen: Soft active nontender. Extremities: Normal tone. Neurological: Mental status: Confused, pleasant. Cranial nerves: Symmetric facial tone and trapezius. Motor: At best antigravity movement arms and less than antigravity movement in legs. Sensation: Intact throughout. DTRs: Symmetric and equal throughout. Mobility: Appears would require 2 person assist to sit, at least. Results CBC & Chem 7: 10/18/16 05:00 10/19/16 04:30 Labs: Abnormal Lab Results - Last 24 Hours (Table) 10/18/16 10/18/16 10/18/16 Range/Units 07:59 11:50 16:11 Sodium (137-145) mmol/L Potassium (3.5-5.1) mmol/L Chloride (98-107) mmol/L BUN (9-20) mg/dL Glucose (74-99) mg/dL POC Glucose (mg/dL) 126 H 180 H 130 H (75-99) mg/dL Calcium (8.4-10.2) mg/dL Magnesium (1.6-2.3) mg/dL 10/18/16 10/19/16 10/19/16 Range/Units 20:16 00:48 04:30 Sodium 146 H (137-145) mmol/L Potassium 3.4 L (3.5-5.1) mmol/L Chloride 111 H (98-107) mmol/L BUN 40 H (9-20) mg/dL Glucose 116 H (74-99) mg/dL POC Glucose (mg/dL) 142 H 126 H (75-99) mg/dL Calcium 7.3 L (8.4-10.2) mg/dL Magnesium 3.0 H (1.6-2.3) mg/dL 10/19/16 Range/Units 04:42 Sodium (137-145) mmol/L Potassium (3.5-5.1) mmol/L Chloride (98-107) mmol/L BUN (9-20) mg/dL Glucose (74-99) mg/dL POC Glucose (mg/dL) 135 H (75-99) mg/dL Calcium (8.4-10.2) mg/dL Magnesium (1.6-2.3) mg/dL Microbiology - Last 24 Hours (Table) 10/15/16 14:40 Gram Stain - Preliminary Chest Tissue Culture - Preliminary Chest x-ray: report reviewed (Serial chest x-rays followed for CHF and pleural effusion.) Assessment and Plan (1) Acute respiratory failure Status: Acute Plan: Impression: 1. Medical debility. 2. Acute respiratory failure. 3. Acute renal failure. 4. Recent AVR and MVR. 5. Recent hypoxic event with seizure-like event. 6. At fibrillation. 7. Hypothyroid. 8. Osteoarthritis. 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 Rehab prognosis currently guarded. We'll follow with yourself.
[2016-10-19] MEDS: IPRATROPIUM 0.5 MG/2.5 ML NEBU INHALATION SCH ×3 (07:15→19:20)
[2016-10-19] MEDS: LEVALBUTEROL NEB (CONC) 1.25 MG/0.5 ML AMP INHALATION SCH ×3 (07:15→19:20)
--- NOTE | 2016-10-19 08:03 | XR ---
EXAMINATION TYPE: XR chest 1V portable DATE OF EXAM: 10/19/2016 6:56 AM CLINICAL HISTORY: Difficulty breathing progress study. Post op aortic valve repair. TECHNIQUE: Single AP portable semiupright view of the chest is obtained. COMPARISON: Chest x-ray from one day earlier FINDINGS: Sternal wires are redemonstrated. There is metallic aortic valve and mitral valvular ring redemonstrated. A left-sided PICC line is again seen. Overlying tubes and wires are noted making eval uation suboptimal. There is interval removal of left basilar chest tube. There is cardiomegaly with atherosclerotic and ectatic thoracic aorta. There is bibasilar opacity fel t to reflect small to moderate-sized right and small left pleural effusion. There is associated bibas ilar atelectasis and/or infiltrate. Central vascular congestion is redemonstrated. IMPRESSION: Interval removal of left basilar chest tube. There is persistent mild cardiomegaly with c entral vascular congestion and small to moderate-sized right greater than left pleural effusions with associated lower lung infiltrate and/or atelectasis all redemonstrated.
[2016-10-19 08:27] LABS: Glucose,Whole Blood 127 mg/dL (75-99)
--- NOTE | 2016-10-19 09:01 | P.PN ---
Subjective This is a 61-year-old male patient was undergone a cardiac surgery which involved aVR with mitral valve repair on 09/29/2016. The patient was discharged home on 10/04/2016. Following that the patient was readmitted to the hospital because of increased shortness of breath, acute respiratory failure , cough, syncope and sternal wound dehiscence. The patient was seen by cardiology thoracic surgery and he was taken back to the operating room where he underwent a closure of the sternal wound with a muscle flap on 10/15/2016. The patient was extubated off the mechanical ventilator on 10/16/2016. He initially had difficulties with swallowing yet he is currently doing better. He developed a right-sided pleural effusion he had an attempt for thoracentesis was done yesterday by Dr. Armando and this failed. Apparently there was no adequate fluid drainage during the procedure. As such the procedure was aborted. The patient has a left-sided chest tube in place which is draining approximately less than 100 mL over the past 24 hours and the plan is to take of the chest tube. He is actually taking well at 6 L/m nasal cannula. His is or 82. He is hemodynamically stable. He is pulling approximately 500 on the incentive spirometer. The patient has MEGHAN drains on his sternal wound a total of 3 and the drainage is not active at this point. The patient is hemodynamically stable on no pressors. His CODE STATUS is full at this point. On 10/19/2016 I'm seeing this patient in follow-up. He is doing well. He is sitting up on a bed and he is on 5 L of oxygen by nasal cannula. His chest x- ray still showing better pleural effusion worse on the right and the plan is to proceed with thoracentesis this morning. He is tolerating his diet. No nausea. No vomiting. No chest pain. Sternum stable clean and intact. No fever. No chills. White cell count is at 10.0 and hemoglobin is at 8.4 which is stable. The patient remains on IV Zosyn. I discussed the case with Dr. Ramos and we'll keep the Sporanox on hold for the time being due to concerns of drug interaction. The patient has had Haemophilus and Serratia in his sputum. The MEGHAN drains are still in place. MEGHAN drain #1 has put out 20 mL and # 2 has put out 80 mL of urine output is around 50 mL an hour. Objective - Vital Signs Vital signs: Vital Signs Temp 97.5 F L 10/19/16 04:00 Pulse 87 10/19/16 07:35 Resp 17 10/19/16 06:00 BP 100/55 10/16/16 08:00 Pulse Ox 94 L 10/19/16 06:00 Intake & Output 10/18/16 10/19/16 10/19/16 18:59 06:59 18:59 Intake Total 833 999 Output Total 1124 905 Balance -291 94 Weight 111 kg 113.3 kg Intake: IV 103 929 Dextrose 5% in Water 1, 840 000 ml @ 70 mls/hr IV . [id number] [facility] Rx#:[id number] Lactated Ringers 1,000 ml 20 @ 20 mls/hr IV .Q24H [facility] Rx#:[id number] Piperacillin-Tazobactam 3 50 50 .375 gm In Dextrose/Water 1 50ml.bag @ 12.5 mls/hr IVPB Q8H [facility] Rx#: [id number] Pressure Bag 33 39 Intake, IV Titration 730 70 Amount Dextrose 5% in Water 1, 530 70 000 ml @ 70 mls/hr IV . [id number] [facility] Rx#:[id number] Potassium Chloride 10 meq 200 In Water For Injection 1 100ml.bag @ 100 mls/hr IVPB Q1H [facility] Rx#: [id number] Output: Chest Tube Drainage 70 LEFT PLEURAL 70 Drainage 190 90 Left Lateral Chest 45 0 Medial Chest 90 90 Right Lateral Chest 55 0 Urine 864 815 Other: Voiding Method Indwelling Catheter Indwelling Catheter ABP, PAP, CO, CI - Last Documented Arterial Blood Pressure 104/50 - Exam Head exam was generally normal. There was no scleral icterus or corneal arcus. Mucous membranes were moist.Neck was supple and without jugular venous distension, thyromegaly, or carotid bruits. Carotids were easily palpable bilaterally. There was no adenopathy. Lung sounds are diminished in the lung base bilaterally especially in the right lung base. The patient has weak and poor respiratory efforts. Patient had a left-sided chest tube in place. Heart sounds are regular, positive S1-S2 and there is no significant murmurs appreciated. Sternum was stable clean and intact and the patient's sternal wound is covered with a Aquacel silver dressing. MEGHAN drains were visualized. No active drainage from the wounds.Abdominal exam revealed normal bowel sounds. The abdomen was soft, non-tender, and without masses, organomegaly, or appreciable enlargement of the abdominal aorta.Examination of the extremities revealed easily palpable radial, femoral and pedal pulses. There was no cyanosis , clubbing or edema. - Labs CBC & Chem 7: 10/19/16 04:30 10/19/16 04:30 Labs: Abnormal Lab Results - Last 24 Hours (Table) 10/18/16 10/18/16 10/18/16 Range/Units 11:50 16:11 20:16 RBC (4.30-5.90) m/uL Hgb (13.0-17.5) gm/dL Hct (39.0-53.0) % RDW (11.5-15.5) % Neutrophils # (1.3-7.7) k/uL Lymphocytes # (1.0-4.8) k/uL Sodium (137-145) mmol/L Potassium (3.5-5.1) mmol/L Chloride (98-107) mmol/L BUN (9-20) mg/dL Glucose (74-99) mg/dL POC Glucose (mg/dL) 180 H 130 H 142 H (75-99) mg/dL Calcium (8.4-10.2) mg/dL Magnesium (1.6-2.3) mg/dL 10/19/16 10/19/16 10/19/16 Range/Units 00:48 04:30 04:30 RBC 2.74 L (4.30-5.90) m/uL Hgb 8.4 L (13.0-17.5) gm/dL Hct 26.7 L (39.0-53.0) % RDW 18.1 H (11.5-15.5) % Neutrophils # 8.1 H (1.3-7.7) k/uL Lymphocytes # 0.7 L (1.0-4.8) k/uL Sodium 146 H (137-145) mmol/L Potassium 3.4 L (3.5-5.1) mmol/L Chloride 111 H (98-107) mmol/L BUN 40 H (9-20) mg/dL Glucose 116 H (74-99) mg/dL POC Glucose (mg/dL) 126 H (75-99) mg/dL Calcium 7.3 L (8.4-10.2) mg/dL Magnesium 3.0 H (1.6-2.3) mg/dL 10/19/16 10/19/16 Range/Units 04:42 08:26 RBC (4.30-5.90) m/uL Hgb (13.0-17.5) gm/dL Hct (39.0-53.0) % RDW (11.5-15.5) % Neutrophils # (1.3-7.7) k/uL Lymphocytes # (1.0-4.8) k/uL Sodium (137-145) mmol/L Potassium (3.5-5.1) mmol/L Chloride (98-107) mmol/L BUN (9-20) mg/dL Glucose (74-99) mg/dL POC Glucose (mg/dL) 135 H 127 H (75-99) mg/dL Calcium (8.4-10.2) mg/dL Magnesium (1.6-2.3) mg/dL Microbiology - Last 24 Hours (Table) 10/15/16 14:40 Gram Stain - Preliminary Chest Tissue Culture - Preliminary Assessment and Plan Plan: Assessment 1 status post aortic valve replacement and mitral valve repair and the patient is postop day #20 2 sternal wound dehiscence, post muscle flap, postop day #4 3 post extubation and the patient was weaned off the mechanical ventilator on 4 bilateral pleural effusion, status post failed thoracentesis of the right 5 left-sided chest tube with diminished output 6 paroxysmal fibrillation, paroxysmal currently in sinus rhythm 7 hypertension 8 hyperlipidemia 9 thyroid cancer with a previous thyroidectomy 10 osteoarthritis 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 The patient was seen by Dr. Ramos. Recommendations were treating this patient with itraconazole 100 mg by mouth twice a day. 12 Serratia marcescens and Haemophilus influenza in the sputum, currently on IV Zosyn 13 hypernatremia, improving with D5 water at the rate of 75 mL an hour. Plan Monitor the output from the MEGHAN drains. Left-sided chest tube is removed. We' ll proceed with a thoracentesis of the right lung today. The hyponatremia is improving and the patient is on D5 water at the rate of 70 mL an hour. Monitor the sodium level. PTOT evaluation. We'll continue to follow.
--- NOTE | 2016-10-19 10:35 | XR ---
EXAMINATION TYPE: XR chest 1V portable DATE OF EXAM: 10/19/2016 10:15 AM CLINICAL HISTORY: Difficulty breathing progress study. Right-sided thoracentesis. TECHNIQUE: Single AP portable upright view of the chest is obtained. COMPARISON: Chest x-ray from earlier today FINDINGS: A left-sided PICC line is stable in appearance. There is metallic aortic valve and mitral valvular ring. Overlying vertical skin yoli are present. There are believed coiled pleural cathete rs bilaterally redemonstrated. There are suspected 2 mediastinal drainage catheters now better seen v ersus overlying catheters. There is persistent small right pleural effusion with associated right basilar atelectasis and/or inf iltrate improved after right-sided thoracentesis. There is persistent left basilar infiltrate and/or atelectasis. Cardiac silhouette size is stable and enlarged. Some central vascular congestion remains present though improved. Degenerative change bilateral glenohumeral joints is noted. IMPRESSION: Interval improvement in right-sided effusion after thoracentesis. No sizable pneumothorax is evident.
--- NOTE | 2016-10-19 10:45 | P.PN ---
Subjective Principal diagnosis: Status post open-heart surgery, respiratory failure, atrial fibrillation and CHF and sternal dehiscence, pleural effusion Patient is a status post repair of the mitral valve and also aortic valve replacement. Patient seemed to be doing better. His remained extubated. He seemed to be much more alert. He passed a swallow evaluation and the diet is being advanced. His maintaining sinus rhythm. We will continue current medical therapy and increase activity as tolerated. Patient is reevaluated in . Patient had thoracocentesis and 1.6 L of fluid was taken out. Patient is sitting up and seemed to be relatively comfortable. Patient is to have some difficulty swallowing. He is getting bedside physical therapy and patient went back into atrial fibrillation. Patient is going to be started on Coumadin today. Increase activity as tolerated Objective - Vital Signs Vital signs: Vital Signs Temp 97.6 F 10/19/16 08:00 Pulse 104 H 10/19/16 09:00 Resp 16 10/19/16 09:00 BP 93/57 10/19/16 09:00 Pulse Ox 94 L 10/19/16 09:00 Intake & Output 10/18/16 10/19/16 10/19/16 18:59 06:59 18:59 Intake Total 833 999 140 Output Total 4693 086 4432 Balance -291 94 -1550 Weight 111 kg 113.3 kg Intake: IV 103 929 140 Dextrose 5% in Water 1, 840 140 000 ml @ 70 mls/hr IV . [id number] [facility] Rx#:[id number] Lactated Ringers 1,000 ml 20 @ 20 mls/hr IV .Q24H [facility] Rx#:[id number] Piperacillin-Tazobactam 3 50 50 .375 gm In Dextrose/Water 1 50ml.bag @ 12.5 mls/hr IVPB Q8H [facility] Rx#: [id number] Pressure Bag 33 39 Intake, IV Titration 730 70 Amount Dextrose 5% in Water 1, 530 70 000 ml @ 70 mls/hr IV . [id number] [facility] Rx#:[id number] Potassium Chloride 10 meq 200 In Water For Injection 1 100ml.bag @ 100 mls/hr IVPB Q1H [facility] Rx#: [id number] Output: Chest Tube Drainage 70 LEFT PLEURAL 70 Drainage 190 90 Left Lateral Chest 45 0 Medial Chest 90 90 Right Lateral Chest 55 0 Urine 864 815 90 Other 1600 Other: Voiding Method Indwelling Catheter Indwelling Catheter ABP, PAP, CO, CI - Last Documented Arterial Blood Pressure 104/50 - Exam GENERAL EXAM: Patient is extubated. He is alert, awake. He is still weak and frail HEENT: Normocephalic. Normal reaction of pupils, equal size, normal range of extraocular motion. No erythema or exudates in the throat. NECK: No masses, no nuchal rigidity. CHEST: No chest wall deformity. LUNGS: [Diminished breath sounds, scattered rhonchi HEART: Irregular heart rhythm ABDOMEN: No hepatosplenomegaly, normal bowel sounds, no guarding or rigidity. SKIN: No rashes CENTRAL NERVOUS SYSTEM: Sedated EXTREMITIES: No cyanosis, clubbing or edema. - Labs CBC & Chem 7: 10/19/16 04:30 10/19/16 04:30 Labs: Abnormal Lab Results - Last 24 Hours (Table) 10/18/16 10/18/16 10/18/16 Range/Units 11:50 16:11 20:16 RBC (4.30-5.90) m/uL Hgb (13.0-17.5) gm/dL Hct (39.0-53.0) % RDW (11.5-15.5) % Neutrophils # (1.3-7.7) k/uL Lymphocytes # (1.0-4.8) k/uL Sodium (137-145) mmol/L Potassium (3.5-5.1) mmol/L Chloride (98-107) mmol/L BUN (9-20) mg/dL Glucose (74-99) mg/dL POC Glucose (mg/dL) 180 H 130 H 142 H (75-99) mg/dL Calcium (8.4-10.2) mg/dL Magnesium (1.6-2.3) mg/dL 10/19/16 10/19/16 10/19/16 Range/Units 00:48 04:30 04:30 RBC 2.74 L (4.30-5.90) m/uL Hgb 8.4 L (13.0-17.5) gm/dL Hct 26.7 L (39.0-53.0) % RDW 18.1 H (11.5-15.5) % Neutrophils # 8.1 H (1.3-7.7) k/uL Lymphocytes # 0.7 L (1.0-4.8) k/uL Sodium 146 H (137-145) mmol/L Potassium 3.4 L (3.5-5.1) mmol/L Chloride 111 H (98-107) mmol/L BUN 40 H (9-20) mg/dL Glucose 116 H (74-99) mg/dL POC Glucose (mg/dL) 126 H (75-99) mg/dL Calcium 7.3 L (8.4-10.2) mg/dL Magnesium 3.0 H (1.6-2.3) mg/dL 10/19/16 10/19/16 Range/Units 04:42 08:26 RBC (4.30-5.90) m/uL Hgb (13.0-17.5) gm/dL Hct (39.0-53.0) % RDW (11.5-15.5) % Neutrophils # (1.3-7.7) k/uL Lymphocytes # (1.0-4.8) k/uL Sodium (137-145) mmol/L Potassium (3.5-5.1) mmol/L Chloride (98-107) mmol/L BUN (9-20) mg/dL Glucose (74-99) mg/dL POC Glucose (mg/dL) 135 H 127 H (75-99) mg/dL Calcium (8.4-10.2) mg/dL Magnesium (1.6-2.3) mg/dL Microbiology - Last 24 Hours (Table) 10/15/16 14:40 Gram Stain - Preliminary Chest Tissue Culture - Preliminary Assessment and Plan (1) Acute renal failure Status: Acute (2) Acute respiratory failure Status: Acute (3) Status post aortic valve replacement Status: Acute (4) Status post mitral valve repair Status: Acute (5) Atrial fibrillation with RVR Status: Acute (6) Congestive heart failure due to valvular disease Status: Acute Plan: Patient is back in atrial fibrillation with controlled ventricular response. We 'll start him back on Coumadin. Patient is getting bedside physical therapy. His diet is being advanced as tolerated. Patient has made some good progress. Further recommendations depend upon clinical course. Patient also had a pleural tap today
[2016-10-19] MEDS ORDERED: ALBUMIN HUMAN 25% 50 ML in EMPTY BAG 1 BAG IVPB ONE ×2 (10:59→16:30)
[2016-10-19] MEDS: LEVOTHYROXINE 75 MCG TAB PO SCH (11:40)
[2016-10-19] MEDS: AMIODARONE 200 MG TAB PO SCH ×2 (11:40→18:57)
[2016-10-19] MEDS: POTASSIUM CHLORIDE 10 MEQ in WATER FOR INJECTION 1 100ML.BAG IVPB SCH ×2 (11:41→12:11)
[2016-10-19] MEDS: PANTOPRAZOLE 40 MG/10 ML VIAL IVP SCH (11:42)
[2016-10-19] MEDS: ASPIRIN 81 MG CHEW PO SCH (11:42)
--- NOTE | 2016-10-19 11:42 | PCN ---
DATE OF PROCEDURE: Indication: Right pleural effusion. A time-out was completed verifying correct patient, procedure, site, positioning, and implant (s) or special equipment if applicable. Ultrasound guidance was used and appropriate fluid pocket was identified and marked. Patient was positioned, prepped and draped in usual sterile fashion. Lidocaine was used to anesthetize the area. A Thoracentesis catheter was introduced into the pleural space and fluid was removed. Blood loss was none. A chest x-ray was ordered to evaluate for pneumothorax. Total Fluid Removed: 1.6 L Color of Fluid: Bloody. Patient tolerated the procedure well. No bedside complications, no pneumothorax.
[2016-10-19 11:52] LABS: Glucose,Whole Blood 129 mg/dL (75-99)
--- NOTE | 2016-10-19 13:23 | P.PN ---
Progress Note - Text CV Surgery Nursing Principal diagnosis: Acute hypoxic respiratory failure requiring mechanical ventilation, present on admission. Sputum culture positive for Haemophilus influenza, serratia marcescens. Currently on Zosyn, vancomycin. Infectious disease following. CAT scan of the chest on 10/09/16 demonstrated dehiscence of sternal wires, an unexpected postsurgical condition related to the patient's underlying comorbidities. Left pleural effusion. POD #22 aortic valve replacement, mitral valve repair, modified Frederick maze, mediastinal lymph node biopsy. POD #4 sternal exploration due to sternal debridement and wound closure with bilateral pectoralis major myocutaneous advancement flaps. POD #4 placement of left chest tube for left pleural effusion. Patient awake and alert, no distress noted, is complaining of generalized weakness. Vital Signs: Afebrile Vital Signs - 24 hr 10/18/16 10/18/16 10/18/16 13:00 14:00 15:00 Temperature Pulse Rate 77 73 68 Respiratory 17 19 19 Rate Blood Pressure O2 Sat by Pulse 96 96 96 Oximetry 10/18/16 10/18/16 10/18/16 16:00 16:50 17:00 Temperature Pulse Rate 67 67 68 Respiratory 29 H 29 H Rate Blood Pressure O2 Sat by Pulse 96 97 Oximetry 10/18/16 10/18/16 10/18/16 17:04 18:00 19:00 Temperature Pulse Rate 68 71 72 Respiratory 19 15 Rate Blood Pressure O2 Sat by Pulse 90 L 93 L Oximetry 10/18/16 10/18/16 10/18/16 20:00 20:33 20:49 Temperature Pulse Rate 70 68 69 Respiratory 18 Rate Blood Pressure O2 Sat by Pulse 94 L Oximetry 10/18/16 10/18/16 10/18/16 21:00 22:00 23:00 Temperature Pulse Rate 70 69 68 Respiratory 14 14 12 Rate Blood Pressure O2 Sat by Pulse 96 95 97 Oximetry 10/19/16 10/19/16 10/19/16 00:00 01:00 02:00 Temperature 98.2 F Pulse Rate 65 65 62 Respiratory 15 12 14 Rate Blood Pressure O2 Sat by Pulse 97 96 98 Oximetry 10/19/16 10/19/16 10/19/16 03:00 03:56 04:00 Temperature 97.5 F L Pulse Rate 95 87 Respiratory 26 H 26 H 15 Rate Blood Pressure O2 Sat by Pulse 96 97 Oximetry 10/19/16 10/19/16 10/19/16 05:00 06:00 07:00 Temperature Pulse Rate 87 80 80 Respiratory 15 17 18 Rate Blood Pressure 85/56 O2 Sat by Pulse 97 94 L 95 Oximetry 10/19/16 10/19/16 10/19/16 07:22 07:35 08:00 Temperature 97.6 F Pulse Rate 90 87 91 Respiratory 17 Rate Blood Pressure 95/57 O2 Sat by Pulse 95 Oximetry 10/19/16 10/19/16 10/19/16 09:00 10:00 11:00 Temperature Pulse Rate 104 H 87 94 Respiratory 16 19 17 Rate Blood Pressure 93/57 77/51 90/64 O2 Sat by Pulse 94 L 94 L 95 Oximetry 10/19/16 10/19/16 10/19/16 11:05 11:18 12:00 Temperature 98.4 F Pulse Rate 88 104 H 91 Respiratory 19 Rate Blood Pressure 75/55 O2 Sat by Pulse 94 L Oximetry ABP, PAP, CO, CI - Last 8 Hours Arterial Blood Pressure 104/50 Arterial Blood Pressure 94/49 Labs: Short CBC 10/19/16 Range/Units 04:30 WBC 10.0 (3.8-10.6) k/uL Hgb 8.4 L (13.0-17.5) gm/dL Hct 26.7 L (39.0-53.0) % Plt Count 175 (150-450) k/uL Neutrophils # 8.1 H (1.3-7.7) k/uL BMP 10/19/16 04:30 Sodium 146 H Potassium 3.4 L Chloride 111 H Carbon Dioxide 30 BUN 40 H Creatinine 1.10 Glucose 116 H Calcium 7.3 L IV Fluids: D5W at 70 mL per hour Lungs: Essentially clear throughout, diminished bilateral bases right greater than left. Respirations are unlabored. O2 sat: 93% on 5 L nasal cannula. I/S: 500-750 mL, reviewed with the patient important of using his incentive spirometry every hour while awake. The patient will need some assistance with the incentive spirometry due to his weakness. Heart: S1S2, irregular rhythm and controlled rate. Negative for S3, gallop or murmur. Bedside telemetry showing atrial fibrillation heart rate 98. Thanks forChest incision clean with dressing clean and dry. MEGHAN drains in place draining serosanguineous drainage. Right chest MEGHAN drain with 0 mL output in the last 8 hours, 55 mL output in the last 24 hours. The mid chest MEGHAN drain draining serosanguineous drainage. 40 mL output in the last 8 hours, 180 mL output in the last 24 hours. Left chest MEGHAN drain draining thin serosanguineous drainage. 0 mL output in the last 8 hours, 45 mL output in the last [address] hours[address] in place, reminded patient on use of her heart hugger. knee-high ORLIN hose and sequential compression devices in place to bilateral lower extremities. Abdomen: Soft, Positive bowel sounds present in all 4 quadrants. CBGs: 126-142 mg/dL in the last 24 hours. U/O: Adequate, Duong catheter for accurate I&O 24 hr Total: Intake & Output 10/17/16 10/18/16 10/19/16 10/20/16 06:59 06:59 06:59 06:59 Intake Total 453.120 647.0 1832 500 Output Total 0 0 2028 1840 Balance -1606.880 -1503.0 -197 -1340 Weight 113 kg 111 kg 113.3 kg 113.3 kg Active Medications Amiodarone HCl (Cordarone) 200 mg PO BID@0600,1800 [facility] Last Admin: 10/19/16 11:40 Dose: 200 mg Aspirin (Aspirin) 81 mg PO DAILY [facility] Last Admin: 10/19/16 11:42 Dose: 81 mg Digoxin (Lanoxin) 125 mcg IVP DAILY [facility] Last Admin: 10/18/16 08:27 Dose: 125 mcg Heparin Sodium (Porcine) (Heparin) 5,000 unit SQ Q8HR [facility] Last Admin: 10/19/16 11:41 Dose: 5,000 unit Piperacillin/Tazobactam/ (Dextrose 3.375 gm/ IV Solution) 50 mls @ 12.5 mls/hr IVPB Q8H [facility] Last Admin: 10/19/16 04:48 Dose: 12.5 mls/hr Ibuprofen (Motrin Oral Susp Cup) 600 mg PO Q6H PRN PRN Reason: Fever and/or Mild Pain Last Admin: 10/11/16 02:21 Dose: 600 mg Insulin Human Lispro (Humalog) 0 unit SQ Q4H [facility] PRN Reason: Protocol Last Admin: 10/19/16 12:11 Dose: Not Given Ipratropium [place] (Atrovent Nebulized) 0.5 mg INHALATION RT-TID [facility] Last Admin: 10/19/16 11:05 Dose: 0.5 mg Levalbuterol HCl (Xopenex Nebulized (Conc)) 1.25 mg INHALATION RT-TID [facility] Last Admin: 10/19/16 11:05 Dose: 1.25 mg Levothyroxine Sodium (Synthroid) 150 mcg PO DAILY@0630 [facility] Last Admin: 10/19/16 11:40 Dose: 150 mcg Metoprolol Tartrate (Lopressor) 25 mg PO BID [facility] Last Admin: 10/18/16 20:27 Dose: 25 mg Miscellaneous Information (Potassium Per Protocol) 1 each MISCELLANE DAILY PRN ; Protocol PRN Reason: Per Protocol Miscellaneous Information (Magnesium Per Protocol) 1 each MISCELLANE DAILY PRN ; Protocol PRN Reason: Per Protocol Miscellaneous Information (Phosphorus Per Protocol) 1 each MISCELLANE DAILY PRN ; Protocol PRN Reason: Per Protocol Pantoprazole Sodium (Protonix) 40 mg IVP DAILY [facility] Last Admin: 10/19/16 11:42 Dose: 40 mg Sodium Chloride (Saline Flush) 20 ml IV Q4HR PRN PRN Reason: PICC Line Sodium Chloride (Saline Flush) 10 ml IV WEEKLY [facility] Last Admin: 10/18/16 08:29 Dose: Not Given Warfarin Sodium (Coumadin) 5 mg PO ONCE@1800 [facility] Stop: 10/19/16 18:01 Plan: 1. Continue aspirin, Lopressor, digoxin, heparin sc. 2. Continue amiodarone 200 mg PO BID, for A. fib prophylaxis. Coumadin 5 mg by mouth 1 today ordered. 3. Continue antibiotics per infectious disease. Dr. Ramos is following. 4. Pulmonary management per Dr. Albert recommendations. Right-sided thoracentesis completed today by Dr. Albert with 1.5 L of blood-tinged fluid drained. 5. Daily labs, x-rays. 6. Diabetic management per internal medicine service. 7. MEGHAN drains will remain in place. We will continue to monitor drainage. 8. Strict I/O, daily weights. Albumin 25% 1 today will be given for some hypotension. 9. More recommendations as patient progresses.
[2016-10-19] MEDS: DIGOXIN 250 MCG/ML 2 ML AMP IVP SCH (14:12)
[2016-10-19] MEDS: METOPROLOL TARTRATE 25 MG TAB PO SCH ×2 (14:12→20:20)
--- NOTE | 2016-10-19 14:49 | CDI ---
In responding to this query, please exercise your independent professional judgment. The [facility] Coding Staff and Clinical Documentation Specialists appreciate your assistance in clarifying documentation, maintaining compliance with coding guidelines, accurately documenting patients condition and capturing severity of illness. The fact that a question is asked does not imply that any particular answer is desired or expected. Communication forms are a method of clarifying documentation and are not made part of the Legal Health Record. Thank you in advance for your clarification. Last Revision, April 2015 Janethbhavana Perez [address] [place] [address] Documentation Clarification Form Date: 10/19/2016 2:20:00 PM From: Gerson Sawyer RN, BSN, CDI Phone: [phone] Admit Date: 10/06/2016 11:17:00 AM Patient Name: Jn Stevenson Visit Number: [id number] Dr. Jae Riggs: Per your operative note, a "debridement" was performed on 10/15/16. There was no further documentation as to the type of debridement (excisional or non- excisional) in your procedure note. History/Risk Factors: 71 yo male with recent atrial valve replacement, mitral valve repair presents after EMS was called by for what appeared to be seizure like activity. Upon EMS arrival, he was noted to have some DARYA. Clinical Indicators: CT chest showed "sternal dehiscence". Per the operative report "there was a large amount of fibrinous material present along with some small amount of old clot. This was all debrided out from both this region of the sternum and from the mediastinum, cultures were sent of the fluid and of the tissue. Once we had debrided back all the tissue, having clearly identified no necrotic bone and no evidence of acute infection". In order to capture the severity of condition and code the appropriate procedure could you please document the following: Excisional debridement (the removal of necrotic, devitalized tissue or slough by means of cutting away of tissue) Non-excisional debridement (the removal of necrotic, devitalized tissue or slough by means of flushing, brushing, or washing. (Irrigation) Other; with explanation for clinical findings Unable to determine (no explanation for clinical findings) Please note: The additional elements required for accurate and compliant documentation of a debridement: 1. Technique used (e.g., excisional, excised, cutting, etc.) 2. Instrument(s) used (e.g., scalpel, curette, etc.) Please document in your progress notes and discharge summary in order to capture severity of illness and risk of mortality. Include clinical findings that support your diagnosis. FYI: Press F11 to launch patient chart. Place X here if this finding has no clinical significance, is not applicable or if you are not able to provide any additional documentation. WILSON
--- NOTE | 2016-10-19 15:09 | CDI ---
In responding to this query, please exercise your independent professional judgment. The [facility] Coding Staff and Clinical Documentation Specialists appreciate your assistance in clarifying documentation, maintaining compliance with coding guidelines, accurately documenting patients condition and capturing severity of illness. The fact that a question is asked does not imply that any particular answer is desired or expected. Communication forms are a method of clarifying documentation and are not made part of the Legal Health Record. Thank you in advance for your clarification. Last Revision, April 2015 Janethbhavana Perez [address] [place] [address] Documentation Clarification Form Date: 10/19/2016 2:52:00 PM From: Gerson Sawyer, RN, BSN, CDI Admit Date: 10/06/2016 11:17:00 AM Patient Name: Jn Stevenson Visit Number: [id number] Dr. Johnny Ramos: Per Dr. Gonzalez's note dated 10/11, "patient with sepsis who did have fever of 102 deg, did have an elevated WBC- source could be likely a combination of PNA, that has adequately been covered w/Zosyn". On 10/12,Dr. Gonzalez documents, "pt w/ sepsis with source of possible femoral line that was d/c'd vs sternal osteo, as well as serratia PNA". Per your most recent noted dated 10/18, "pt had extensive leukocytosis at admission, concerns to PNA, given his significant leukocytosis and antibiotic therapy was begun, cardiothoracic surgery is following after the reconstruction of the sternum, cultures are negative so far ". History/Risk Factors: 71 yo male presents via EMS after witnessed seizure like activity. Upon EMS arrival, he was noted to have some DARYA with SpO2 of 88 % on RA. He was recently discharged 2 days ago from the hospital after having a aortic valve replacement/mitral valve repair and mediastinal lymph node biopsy. He has current mediastinal lymphadenopathy w/histoplasmosis being treated with antibiotics. Clinical Indicators: WBC: 24.6-31.9 Lactic acid: 2.8 Blood cultures: negative to date x2 sets Sputum cultures: Haemophilus influenza, Serratia Marcscens Catheter tip culture: no growth after 48 hours Vitals signs on admission: 153/96, 141, 24, 98.3, 90% 4L BP shortly after admit: 82/46, 71/35- Levophed gtt initiated Other Clinical Indicators: CXR (10/07): left and RLL infiltrates Treatment: ICU, mechanical ventilation, Levophed gtt, Tylenol, Ibuprofen Antibiotics: Meropenem, Vanco, Zosyn IV Bolus: None, patient also being treated for CHF exacerbation and was on Lasix gtt In your professional opinion, can you please clarify if these findings signify one of the following conditions, whether the condition is POA, and possible causes, if known? Sepsis (POA or not POA) Severe Sepsis Septic Shock Sepsis ruled out? Unable to determine Other, please specify * Identify the (suspected) organism Please note: For each diagnosis, documentation must be clear to determine if the condition was present at the time of the patients inpatient admission or developed during the hospital stay. Definition of Present on Admission (POA): A diagnosis present at the time the order for admission to inpatient status was written. Please document in your progress notes and discharge summary in order to capture severity of illness and risk of mortality. Include clinical findings that support your diagnosis. FYI: Press F11 to launch patient chart. Place X here if this finding has no clinical significance, is not applicable or if you are not able to provide any additional documentation. WILSON
[2016-10-19 17:00] LABS: Glucose,Whole Blood 122 mg/dL (75-99)
[2016-10-19] MEDS ORDERED: WARFARIN 5 MG TAB PO ONE (18:00)
[2016-10-19 20:20] LABS: Glucose,Whole Blood 112 mg/dL (75-99)
--- NOTE | 2016-10-19 22:03 | P.PN ---
Subjective Principal diagnosis: Respiratory failure This is a 71-year-old male who came in the hospital on September 23 and underwent a JAYDE and heart catheterization showing a ruptured chordae tendonae, mitral regurgitation, moderate pulmonary hypertension, with history of paroxysmal atrial fibrillation and heart failure. 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 With this the patient was initiated to itraconazole. He however developed atrial fibrillation. Because of this he was initiated to amiodarone. The dose of itraconazole was reduced by 50%. There is no evidence of any ulcerations of the QT interval while he was in hospital. He eventually was discharged home. It is related that he was not able to obtain the itraconazole. In this is going to be addressed in the coming days. However the brought him to the emergency room feeling very short of breath. He was having abdominal distention with increasing shortness of breath. Through his stay in emergency center he continues to feel more more short of breath. He then developed respiratory failure which required intubation sedation mechanical ventilation. Over the following days he is improved was extubated in his continue to improve. His extensive edema has improved. Especially the massive abdominal edema that he was having. Extremity edema is also improved. He is awake and interactive still having some difficulty with his voice was able to answer simple questions. Nursing staff relates he's eating considerably better with assistance. He did laugh and joke. Objective - Vital Signs Vital signs: Vital Signs Temp 98.3 F 10/19/16 20:00 Pulse 85 10/19/16 21:00 Resp 15 10/19/16 21:00 BP 81/47 10/19/16 21:00 Pulse Ox 94 L 10/19/16 21:00 Intake & Output 10/19/16 10/19/16 10/20/16 06:59 18:59 06:59 Intake Total 999 970 260 Output Total 905 9005 285 Balance 94 -1285 -25 Weight 113.3 kg 113.3 kg Intake: IV 929 770 260 Dextrose 5% in Water 1, 840 770 210 000 ml @ 70 mls/hr IV . [id number] ONE Rx#:[id number] Piperacillin-Tazobactam 3 50 50 .375 gm In Dextrose/Water 1 50ml.bag @ 12.5 mls/hr IVPB Q8H [facility] Rx#: [id number] Pressure Bag 39 Intake, IV Titration 70 200 Amount Albumin Human 25% 50 ml 50 In Empty Bag 1 bag @ 100 mls/hr IVPB ONCE ONE Rx#: [id number] Albumin Human 25% 50 ml 50 In Empty Bag 1 bag @ 100 mls/hr IVPB ONCE ONE Rx#: [id number] Dextrose 5% in Water 1, 70 000 ml @ 70 mls/hr IV . [id number] ONE Rx#:[id number] Potassium Chloride 10 meq 100 In Water For Injection 1 100ml.bag @ 100 mls/hr IVPB Q1H [facility] Rx#: [id number] Output: Drainage 90 130 130 Left Lateral Chest 0 Medial Chest 90 30 30 Right Lateral Chest 0 100 100 Urine 815 525 155 Other 1600 Other: Voiding Method Indwelling Catheter Indwelling Catheter Indwelling Catheter ABP, PAP, CO, CI - Last Documented Arterial Blood Pressure 104/50 - Exam This is a 71-year-old male. comfortable HEENT: Head is atraumatic, normocephalic. Pupils equal, round. Sclerae is anicteric. Conjunctiva slightly pale. Mucous membranes of the mouth are moist. No thrush noted. NECK: Supple. No JVD. No lymphadenopathy. No thyromegaly. LUNGS: There is symmetrical air entry. There are bibasal crackles. No significant bronchial sounds. HEART: Irregular with no no murmur Dressing on sternal wound with no breakthrough bleeding or drainage. Right sided pleural chest tube in place. ABDOMEN: Distinctly distended. Few bowel sounds are noted. Organomegaly is not detected. EXTREMITIES: +1 bilateral pedal edema. No calf tenderness. ORLIN hose in place. NEUROLOGICAL: Awake and interactive Skin :patient has an extensive dressing to the chest where there was difficulty with the dehiscence. - Labs CBC & Chem 7: 10/19/16 04:30 10/19/16 04:30 Labs: Abnormal Lab Results - Last 24 Hours (Table) 10/19/16 10/19/16 10/19/16 Range/Units 00:48 04:30 04:30 RBC 2.74 L (4.30-5.90) m/uL Hgb 8.4 L (13.0-17.5) gm/dL Hct 26.7 L (39.0-53.0) % RDW 18.1 H (11.5-15.5) % Neutrophils # 8.1 H (1.3-7.7) k/uL Lymphocytes # 0.7 L (1.0-4.8) k/uL Sodium 146 H (137-145) mmol/L Potassium 3.4 L (3.5-5.1) mmol/L Chloride 111 H (98-107) mmol/L BUN 40 H (9-20) mg/dL Glucose 116 H (74-99) mg/dL POC Glucose (mg/dL) 126 H (75-99) mg/dL Calcium 7.3 L (8.4-10.2) mg/dL Magnesium 3.0 H (1.6-2.3) mg/dL 10/19/16 10/19/16 10/19/16 Range/Units 04:42 08:26 11:50 RBC (4.30-5.90) m/uL Hgb (13.0-17.5) gm/dL Hct (39.0-53.0) % RDW (11.5-15.5) % Neutrophils # (1.3-7.7) k/uL Lymphocytes # (1.0-4.8) k/uL Sodium (137-145) mmol/L Potassium (3.5-5.1) mmol/L Chloride (98-107) mmol/L BUN (9-20) mg/dL Glucose (74-99) mg/dL POC Glucose (mg/dL) 135 H 127 H 129 H (75-99) mg/dL Calcium (8.4-10.2) mg/dL Magnesium (1.6-2.3) mg/dL 10/19/16 10/19/16 Range/Units 16:59 20:18 RBC (4.30-5.90) m/uL Hgb (13.0-17.5) gm/dL Hct (39.0-53.0) % RDW (11.5-15.5) % Neutrophils # (1.3-7.7) k/uL Lymphocytes # (1.0-4.8) k/uL Sodium (137-145) mmol/L Potassium (3.5-5.1) mmol/L Chloride (98-107) mmol/L BUN (9-20) mg/dL Glucose (74-99) mg/dL POC Glucose (mg/dL) 122 H 112 H (75-99) mg/dL Calcium (8.4-10.2) mg/dL Magnesium (1.6-2.3) mg/dL Microbiology - Last 24 Hours (Table) 10/15/16 14:40 Anaerobic Culture - Final Chest 10/15/16 14:40 Anaerobic Culture - Final Chest 10/15/16 14:40 Gram Stain - Final Chest Tissue Culture - Final Laboratory Results WBC 10.0 k/uL (3.8-10.6) 10/19/16 04:30 RBC 2.74 m/uL (4.30-5.90) L 10/19/16 04:30 Hgb 8.4 gm/dL (13.0-17.5) L 10/19/16 04:30 Hct 26.7 % (39.0-53.0) L 10/19/16 04:30 MCV 97.7 fL (80.0-100.0) 10/19/16 04:30 MCH 30.8 pg (25.0-35.0) 10/19/16 04:30 MCHC 31.5 g/dL (31.0-37.0) 10/19/16 04:30 RDW 18.1 % (11.5-15.5) H 10/19/16 04:30 Plt Count 175 k/uL (150-450) 10/19/16 04:30 Neutrophils % 81 % 10/19/16 04:30 Neutrophils % (Manual) 85.5 % 10/08/16 04:20 Band Neutrophils % 0.5 % 10/08/16 04:20 Lymphocytes % 7 % 10/19/16 04:30 Lymphocytes % (Manual) 5.5 % 10/08/16 04:20 Monocytes % 3 % 10/19/16 04:30 Monocytes % (Manual) 4.0 % 10/08/16 04:20 Eosinophils % 7 % 10/19/16 04:30 Eosinophils % (Manual) 3.0 % 10/08/16 04:20 Basophils % 0 % 10/19/16 04:30 Metamyelocytes % 1.0 % 10/08/16 04:20 Myelocytes % 0.5 % 10/08/16 04:20 Neutrophils # 8.1 k/uL (1.3-7.7) H 10/19/16 04:30 Neutrophils # (Manual) 16.2 k/uL (1.3-7.7) H 10/08/16 04:20 Lymphocytes # 0.7 k/uL (1.0-4.8) L 10/19/16 04:30 Lymphocytes # (Manual) 1.0 k/uL (1.0-4.8) 10/08/16 04:20 Monocytes # 0.3 k/uL (0-1.0) 10/19/16 04:30 Monocytes # (Manual) 0.8 k/uL (0-1.0) 10/08/16 04:20 Eosinophils # 0.7 k/uL (0-0.7) 10/19/16 04:30 Eosinophils # (Manual) 0.6 k/uL (0-0.7) 10/08/16 04:20 Basophils # 0.0 k/uL (0-0.2) 10/19/16 04:30 Nucleated RBCs 0 /100 WBC (0-0) 10/08/16 04:20 Manual Slide Review Performed 10/08/16 04:20 Large Platelets Present 10/06/16 21:00 Polychromasia Present 10/08/16 04:20 Hypochromasia Marked 10/19/16 04:30 Poikilocytosis Moderate 10/19/16 04:30 Poikilocytosis (manual Present 10/08/16 04:20 Anisocytosis Slight 10/19/16 04:30 Macrocytosis Slight 10/19/16 04:30 Ovalocytes Present 10/06/16 21:00 PT 12.8 sec (9.0-12.0) H 10/18/16 05:00 INR 1.3 (<1.1) 10/18/16 05:00 APTT 47.0 sec (22.0-30.0) H 10/14/16 06:30 D-Dimer 6.31 mg/L FEU (<0.60) H 10/06/16 21:00 Sample Site shyanne 10/16/16 04:45 ABG pH 7.46 (7.35-7.45) H 10/16/16 04:45 ABG pCO2 41 mmHg (35-45) 10/16/16 04:45 ABG pO2 101 mmHg (83-108) 10/16/16 04:45 ABG HCO3 29 mmol/L (21-25) H 10/16/16 04:45 ABG Total CO2 30 mmol/L (19-24) H 10/16/16 04:45 ABG O2 Saturation 98.0 % (94-97) H 10/16/16 04:45 ABG Base Excess 5.3 mmol/L 10/16/16 04:45 FiO2 50 % 10/16/16 04:45 Sodium 146 mmol/L (137-145) H 10/19/16 04:30 Potassium 3.4 mmol/L (3.5-5.1) L 10/19/16 04:30 Chloride 111 mmol/L (98-107) H 10/19/16 04:30 Carbon Dioxide 30 mmol/L (22-30) 10/19/16 04:30 Anion Gap 5 mmol/L 10/19/16 04:30 BUN 40 mg/dL (9-20) H 10/19/16 04:30 Creatinine 1.10 mg/dL (0.66-1.25) 10/19/16 04:30 Est GFR (MDRD) Af Amer >60 (>60 ml/min/1.73 sqM) 10/19/16 04:30 Est GFR (MDRD) Non-Af >60 (>60 ml/min/1.73 sqM) 10/19/16 04:30 Glucose 116 mg/dL (74-99) H 10/19/16 04:30 POC Glucose (mg/dL) 112 mg/dL (75-99) H 10/19/16 20:18 POC Glu Tanning Wheel Operator ID 10/19/16 20:[address] Glu mg/dL 120 mg/dL 10/07/16 05:18 Hemoglobin A1c 5.8 % (4.2-6.1) 10/07/16 05:18 Plasma Lactic Acid Samir 1.0 mmol/L (0.7-2.0) 10/07/16 05:18 Calcium 7.3 mg/dL (8.4-10.2) L 10/19/16 04:30 Ionized Calcium Guille 4.4 mg/dL (4.5-5.3) L 10/15/16 05:00 Phosphorus 3.2 mg/dL (2.5-4.5) 10/19/16 04:30 Magnesium 3.0 mg/dL (1.6-2.3) H 10/19/16 04:30 Total Bilirubin 0.9 mg/dL (0.2-1.3) 10/18/16 05:00 AST 27 U/L (17-59) 10/18/16 05:00 ALT 38 U/L (21-72) 10/18/16 05:00 Alkaline Phosphatase 62 U/L (38-126) 10/18/16 05:00 Total Creatine Kinase 736 U/L (55-170) H 10/06/16 09:50 CK-MB (CK-2) 7.2 ng/mL (0.0-2.4) H* 10/06/16 09:50 CK-MB (CK-2) Rel Index 1.0 10/06/16 09:50 Troponin I 1.510 ng/mL (0.000-0.034) H* 10/06/16 09:50 NT-Pro-B Natriuret Pep 6520 pg/mL 10/06/16 09:50 Total Protein 5.2 g/dL (6.3-8.2) L 10/18/16 05:00 Albumin 2.4 g/dL (3.5-5.0) L 10/18/16 05:00 TSH 32.400 mIU/L (0.465-4.680) H 10/06/16 09:50 Free T4 0.88 ng/dL (0.78-2.19) 10/06/16 09:50 Urine Color Dark Yellow 10/06/16 18:30 Urine Appearance Cloudy (Clear) 10/06/16 18:30 Urine pH 5.0 (5.0-8.0) 10/06/16 18:30 Ur Specific [place] 1.018 (1.001-1.035) 10/06/16 18:30 Urine Protein Trace (Negative) H 10/06/16 18:30 Urine Glucose (UA) Negative (Negative) 10/06/16 18:30 Urine Ketones Negative (Negative) 10/06/16 18:30 Urine Blood Negative (Negative) 10/06/16 18:30 Urine Nitrite Negative (Negative) 10/06/16 18:30 Urine Bilirubin 1+ (Negative) H 10/06/16 18:30 Urine Urobilinogen 4.0 mg/dL (<2.0) 10/06/16 18:30 Ur Leukocyte Esterase Negative (Negative) 10/06/16 18:30 Urine WBC 10 /hpf (0-5) H 10/06/16 18:30 Ur Squamous Epith Cells 2 /hpf (0-4) 10/06/16 18:30 Calcium Oxalate Crystal Occasional /hpf (None) H 10/06/16 18:30 Amorphous Sediment Occasional /hpf (None) H 10/06/16 18:30 Hyaline Casts 79 /lpf (0-2) H 10/06/16 18:30 Urine Mucus Rare /hpf (None) H 10/06/16 18:30 Vancomycin Trough 15.0 ug/mL 10/17/16 04:10 Digoxin 0.9 ng/mL 10/17/16 20:36 Blood Type O Positive 10/14/16 13:52 Blood Type Recheck No 10/14/16 13:52 Antibody Screen NEGATIVE 10/14/16 13:52 Crossmatch See Detail 10/14/16 13:52 Transfuse Platelets 10/15/16 10/14/16 13:52 Spec Expiration Date 10/17/2016 - 235110/14/16 13:52 Microbiology 10/15/16 14:40 Chest Anaerobic Culture - Final 10/15/16 14:40 Chest Anaerobic Culture - Final 10/15/16 14:40 Chest Gram Stain - Final 10/15/16 14:40 Chest Tissue Culture - Final 10/15/16 14:40 Chest Anaerobic Culture - Preliminary 10/15/16 14:40 Chest Gram Stain - Final 10/15/16 14:40 Chest Wound Culture - Final 10/15/16 14:40 Chest Gram Stain - Final 10/15/16 14:40 Chest Wound Culture - Final 10/11/16 06:40 Blood Blood Culture - Final No Growth after 144 hours 10/11/16 11:47 Catheter Tip Catheter Tip Culture - Final 10/06/16 10:00 Blood Blood Culture - Final No Growth after 144 hours 10/06/16 21:00 Sputum Gram Stain - Final 10/06/16 21:00 Sputum Sputum Culture - Final Haemophilus influenzae Serratia marcescens Assessment and Plan (1) Acute respiratory failure Narrative/Plan: 71-year-old male with history of thyroid cancer recently was hospitalized at which point in time was having difficulties with congestive heart failure. He was noted evidence of aortic valve insufficiency and mitral valve regurgitation. There is also some lymphadenopathy noted within the chest. As he was taken to the operating room and aortic valve replacement occurred as well as mitral valve repair. Biopsy of mediastinal lymph nodes also occurred. 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 Patient was initiated to itraconazole. He however developed atrial fibrillation and was placed on amiodarone and the itraconazole dose was reduced. Upon discharge he has not been able to continue the itraconazole. However is only been home for a very short period of time we developed the progressive shortness of breath. At admission he has extensive edema in his abdominal cavity as well as evidence of congestive heart failure. Concerns to pneumonia given his significant leukocytosis and antibiotic therapy was begun with piperacillin tazobactam and vancomycin. Sputum culture with Haemophilus and Serratia resistant to Unasyn susceptible to Zosyn. We Will Continue Zosyn, Ongoing aggressive supportive care is continuing Cardiothoracic surgery is following after the reconstruction of the sternum, cultures are negative so far. No evidence of any infection Patient had extensive leukocytosis at admission. This is now improved. Zosyn antibiotic therapy may be discontinued as of tomorrow. Fortunately the sternum cultures are all negative and no evidence of deep infection of the sternum at this time. Status: Acute (2) Status post aortic valve replacement Status: Acute (3) Status post mitral valve repair Status: Acute (4) Histoplasmosis Status: Acute
[2016-10-20 00:38] LABS: Glucose,Whole Blood 122 mg/dL (75-99)
[2016-10-20] MEDS: PIPERACILLIN-TAZOBACTAM 3.375 GM in DEXTROSE/WATER 1 50ML.BAG IVPB SCH ×3 (04:04→21:45)
[2016-10-20] MEDS: AMIODARONE 200 MG TAB PO SCH ×2 (05:35→18:44)
[2016-10-20] MEDS: LEVOTHYROXINE 75 MCG TAB PO SCH (05:35)
[2016-10-20 06:06] LABS: INR 1.5 (<1.1); Prothrombin Time 14.6 sec (9.0-12.0)
[2016-10-20 07:37] LABS: Glucose,Whole Blood 110 mg/dL (75-99)
--- NOTE | 2016-10-20 07:43 | XR ---
EXAMINATION TYPE: XR chest 1V portable DATE OF EXAM: 10/20/2016 7:04 AM HISTORY: Shortness of breath. COMPARISON: 10/19/2016 TECHNIQUE: Single view of the chest is submitted. FINDINGS: Demonstrated are scattered senescent parenchymal change. There is continued pulmonary venous congestion with cardiomegaly and pleural effusions. Scattered inf iltrates persist. Hilar and mediastinal structures are within normal limits. Degenerative changes are seen of the dorsal spine. IMPRESSION: 1. Stable chest.
[2016-10-20] MEDS: LEVALBUTEROL NEB (CONC) 1.25 MG/0.5 ML AMP INHALATION SCH (07:54)
[2016-10-20] MEDS: IPRATROPIUM 0.5 MG/2.5 ML NEBU INHALATION SCH (07:54)
[2016-10-20] MEDS: HEPARIN SODIUM,PORCINE 5,000 UNIT/ML 1 ML VIAL SQ SCH ×3 (09:00→23:04)
[2016-10-20] MEDS: INSULIN LISPRO (humaLOG) 300 UNIT/3 ML VIAL SQ SCH ×4 (09:00→22:26)
[2016-10-20] MEDS: ASPIRIN 81 MG CHEW PO SCH (09:01)
[2016-10-20] MEDS: PANTOPRAZOLE 40 MG/10 ML VIAL IVP SCH (09:02)
[2016-10-20] MEDS: METOPROLOL TARTRATE 25 MG TAB PO SCH ×2 (09:02→22:26)
[2016-10-20] MEDS: DIGOXIN 125 MCG TAB PO SCH (09:02)
--- NOTE | 2016-10-20 09:47 | PN ---
DATE OF SERVICE: 10/19/2016 PRESENTING COMPLAINT: Thoracic surgery. INTERVAL HISTORY: This is a patient with multiple medical problems status post ( ) surgery with pectoralis flap. Patient's blood pressure is running down in the 80s. The patient remains in atrial fibrillation with rate control. The patient started on Coumadin earlier. Patient had thoracentesis of the right side and 1.6 L of bloody fluid was removed. Sugar is running low; hence, patient has been on D5W. The patient remains very lethargic, tired. Review of systems was attempted. Current medications are reviewed that include: 1. Cordarone. 2. Aspirin. 3. Digoxin. 4. Atrovent. 5. Xopenex. 6. Synthroid. 7. Lopressor. 8. IV Zosyn. On examination, temperature 98.4, pulse 91, respiration 18, blood pressure 75/55, pulse ox 94% on 5 liters. GENERAL APPEARANCE: Lying in bed, very tired -appearing. EYES: Pupils equal. Conjunctivae pale. NECK: JVD unable to assess. Mass not palpable. RESPIRATORY: Effort normal. LUNGS: Diminished breath sounds. CARDIOVASCULAR: Heart sounds irregular. ABDOMEN: Soft, nontender. Liver and spleen not palpable. PSYCHIATRY: Patient is following commands, lifting his hands up. INVESTIGATIONS: White count 10, hemoglobin 8.4. Potassium 3.4, BUN 14, creatinine 1.40. Accu-Cheks are noted. Chest x-ray shows improvement in right sided effusion. ASSESSMENT: 1. Sternal wound dehiscence, now has got a pectoralis flap in place. Initially done for a coronary artery bypass grafting. 2. Acute hypoxic respiratory failure requiring intubation, now patient extubated 3. Acute renal failure, probably acute tubular necrosis from hypoperfusion, now resolved. 4. Persistent atrial fibrillation, rate controlled. 5. Chronic histoplasmosis, status post biopsy. Current status unknown. 6. Bilateral pleural effusion. 7. Right thoracentesis of bloody fluid. 8. Hypercholesterolemia. 9. Essential hypertension. 10. Hypothyroidism. 11. Currently hypotension, multifactorial. 12. Obesity. 13. Primary osteoarthritis. 14. Hypothyroidism. 15. Moderate secondary pulmonary hypertension. 16. Gastroesophageal reflux disease. 17. Pneumonia secondary to ( ) Serratia Marcescens. 18. Hypernatremia from free water deficit with some improvement. PLAN: Overall prognosis is guarded. Continue current medication and treatment plan. None of the patient's family members available. Talked about CODE STATUS. The patient's current CODE status is FULL CODE. Patient remains on IV Zosyn. I wonder if the patient is being over replaced with Synthroid. Will check patient's thyroid status tomorrow and that will give us some guidance at least. Overall prognosis guarded. Follow.
--- NOTE | 2016-10-20 09:47 | PN ---
DATE OF SERVICE: 10/18/2016 PRESENTING COMPLAINT: Thoracic surgery. INTERVAL HISTORY: This patient was seen by me on 10/18/2016. Patient has multiple medical problems, had his sternal wires removed and pectoralis flap done. Patient is somewhat tired, following simple commands, getting nasal cannula. Review of systems attempted for constitutional, cardiovascular, GI, pulmonary; relevant findings as above. Current medication are resumed. On examination, temperature 98.2, pulse 81, respirations 12, blood pressure 127/53, pulse ox 93% on 6 L. GENERAL APPEARANCE: Lying in bed, tired-appearing. EYES: Pupils equal, conjunctivae are pale. NECK: JVD unable to assess. Mass not possible. Respiratory effort normal. LUNGS: Diminished breath sounds. CARDIOVASCULAR: First and second sounds normal, muffled. EXTREMITIES: No edema. ABDOMEN: Soft, nontender. Liver and spleen not palpable. PSYCHIATRY: Following simple commands. NEUROLOGICAL: Does move his limbs. INVESTIGATIONS: White count 9.5, hemoglobin 8.6, platelets 117, potassium 3.6, sodium 156, BUN 50, creatinine 1.12, albumin 2.4. ASSESSMENT: 1. Sternal incision dehiscence with pectoralis flap done, initial incision for a CABG. 2. Acute hypoxic respiratory failure requiring intubation, now extubated. 3. Acute renal failure, probably acute tubular necrosis from hypoperfusion and poor perfusion. 4. Persistent atrial fibrillation with rapid ventricular rate initially. 5. Chronic histoplasmosis, status post biopsy for connective tissue disease. 6. Bilateral pleural effusion secondary to congestive heart failure. 7. Sternal instability due to wire surgery as above. 8. Hypercholesterolemia. 9. Essential hypertension. 10. Hypothyroidism. 11. Obesity. 12. Primary osteoarthritis of multiple joints. 13. Hypothyroid. 14. Moderate secondary pulmonary hypertension. 15. Gastroesophageal reflux disease. 16. Pneumonia secondary to Haemophilus influenzae and serratia marcescens. 17. Hypernatremia from free water deficit. PLAN: Continue current medication and treatment and supportive care. No family is at the bedside. Will follow.
[2016-10-20 10:22] LABS: Anisocytosis Slight; Basophils % (A) 0 %; CH 29.6; CHCM 31.3; Eosinophils # (A) 0.7 k/uL (0-0.7); Eosinophils % (A) 8 %; HCT 26.3 % (39.0-53.0); HDW 4.27; HGB 8.4 gm/dL (13.0-17.5); Hypochromasia Marked; Luc # (Auto) 0.07; Luc % (Auto) 1; Lymphocytes # (A) 0.6 k/uL (1.0-4.8); Lymphocytes % (A) 7 %; MCH 30.5 pg (25.0-35.0); MCV 95.4 fL (80.0-100.0); Macrocytosis Slight; Mean Platelet Volume 8.5; Monocytes # (A) 0.2 k/uL (0-1.0); Monocytes % (A) 2 %; Neutrophils # (A) 7.7 k/uL (1.3-7.7); Neutrophils % (A) 82 %; Poikilocytosis Moderate; RBC 2.76 m/uL (4.30-5.90); RDW 17.8 % (11.5-15.5); WBC 9.4 k/uL (3.8-10.6)
[2016-10-20 10:33] LABS: Anion Gap 5 mmol/L; Blood Urea Nitrogen 32 mg/dL (9-20); Calcium 7.1 mg/dL (8.4-10.2); Carbon Dioxide 29 mmol/L (22-30); Chloride 107 mmol/L (98-107); Glucose 110 mg/dL (74-99); Magnesium 2.6 mg/dL (1.6-2.3); Non-African American GFR(MDRD) >60 (>60 ml/min/1.73 sqM); Phosphorous 2.9 mg/dL (2.5-4.5); Potassium 3.3 mmol/L (3.5-5.1); Sodium 141 mmol/L (137-145)
[2016-10-20] MEDS ORDERED: Potassium Replacement Protocol 1 EACH MISC MISCELLANE PRN ×2 (11:02→18:41)
[2016-10-20] MEDS: POTASSIUM CHLORIDE ER 20 MEQ TAB.ER PO SCH ×5 (11:37→22:26)
[2016-10-20 12:04] LABS: Glucose,Whole Blood 109 mg/dL (75-99)
--- NOTE | 2016-10-20 12:19 | P.PN ---
Progress Note - Text CV Surgery Nursing Principal diagnosis: Acute hypoxic respiratory failure requiring mechanical ventilation, present on admission. Sputum culture positive for Haemophilus influenza, serratia marcescens. Currently on Zosyn, vancomycin. Infectious disease following. CAT scan of the chest on 10/09/16 demonstrated dehiscence of sternal wires, an unexpected postsurgical condition related to the patient's underlying comorbidities. Left pleural effusion. POD #23 aortic valve replacement, mitral valve repair, modified Frederick maze, mediastinal lymph node biopsy. POD #5 sternal exploration due to sternal debridement and wound closure with bilateral pectoralis major myocutaneous advancement flaps. POD #5 placement of left chest tube for left pleural effusion. Status post day #1 right thoracentesis for right pleural effusion with drainage of 1.5 L of dark red-tinged thin drainage. Patient awake and alert, no distress noted, is complaining of generalized weakness. Denies complaints of pain. Vital Signs: Afebrile Vital Signs - 24 hr 10/19/16 10/19/16 10/19/16 12:00 13:00 14:00 Temperature 98.4 F Pulse Rate 91 85 95 Respiratory 17 15 16 Rate Blood Pressure 75/55 89/53 91/56 O2 Sat by Pulse 94 L 94 L 94 L Oximetry 10/19/16 10/19/16 10/19/16 15:00 16:00 16:17 Temperature 98.5 F Pulse Rate 75 84 Respiratory 18 17 Rate Blood Pressure 82/52 86/54 O2 Sat by Pulse 96 91 L 93 L Oximetry 10/19/16 10/19/16 10/19/16 17:00 18:00 19:00 Temperature Pulse Rate 83 77 84 Respiratory 16 15 27 H Rate Blood Pressure 84/42 82/57 82/52 O2 Sat by Pulse 95 95 96 Oximetry 10/19/16 10/19/16 10/19/16 19:22 19:46 20:00 Temperature 98.3 F Pulse Rate 85 91 78 Respiratory 14 Rate Blood Pressure 82/54 O2 Sat by Pulse 93 L Oximetry 10/19/16 10/19/16 10/19/16 21:00 21:19 22:00 Temperature Pulse Rate 85 79 81 Respiratory 15 15 13 Rate Blood Pressure 81/47 81/47 87/45 O2 Sat by Pulse 94 L 94 L 91 L Oximetry 10/19/16 10/20/16 10/20/16 23:00 00:00 01:00 Temperature 98.2 F Pulse Rate 76 90 69 Respiratory 19 13 17 Rate Blood Pressure 89/50 83/50 82/47 O2 Sat by Pulse 85 L 85 L 95 Oximetry 10/20/16 10/20/16 10/20/16 02:00 03:00 03:50 Temperature Pulse Rate 83 70 Respiratory 18 16 16 Rate Blood Pressure 81/47 85/49 O2 Sat by Pulse 96 91 L Oximetry 10/20/16 10/20/16 10/20/16 04:00 05:00 06:00 Temperature 98.3 F Pulse Rate 78 83 81 Respiratory 18 16 21 Rate Blood Pressure 95/47 82/52 81/64 O2 Sat by Pulse 94 L 96 98 Oximetry 10/20/16 10/20/16 10/20/16 07:00 07:55 08:00 Temperature 97.5 F L Pulse Rate 83 84 77 Respiratory 15 20 Rate Blood Pressure 88/48 93/53 O2 Sat by Pulse 95 100 Oximetry 10/20/16 10/20/16 10/20/16 08:09 09:00 10:00 Temperature Pulse Rate 87 77 94 Respiratory 18 20 Rate Blood Pressure 79/54 94/54 O2 Sat by Pulse 91 L 95 Oximetry 10/20/16 11:00 Temperature Pulse Rate 82 Respiratory 20 Rate Blood Pressure 77/57 O2 Sat by Pulse 92 L Oximetry Labs: Short CBC 10/20/16 Range/Units 10:02 WBC 9.4 (3.8-10.6) k/uL Hgb 8.4 L (13.0-17.5) gm/dL Hct 26.3 L (39.0-53.0) % Plt Count 172 (150-450) k/uL Neutrophils # 7.7 (1.3-7.7) k/uL BMP 10/20/16 10:02 Sodium 141 Potassium 3.3 L Chloride 107 Carbon Dioxide 29 BUN 32 H Creatinine 0.96 Glucose 110 H Calcium 7.1 L ABG ABG pH 7.46 (7.35-7.45) H 10/16/16 04:45 ABG pCO2 41 mmHg (35-45) 10/16/16 04:45 ABG pO2 101 mmHg (83-108) 10/16/16 04:45 ABG O2 Saturation 98.0 % (94-97) H 10/16/16 04:45 PT/INR, D-dimer PT 14.6 sec (9.0-12.0) H 10/20/16 05:30 INR 1.5 (<1.1) 10/20/16 05:30 D-Dimer 6.31 mg/L FEU (<0.60) H 10/06/16 21:00 Coumadin 5 mg by mouth 1 given on 10/19/2016. Microbiology 10/15/16 14:40 Chest Anaerobic Culture - Final 10/15/16 14:40 Chest Anaerobic Culture - Final 10/15/16 14:40 Chest Anaerobic Culture - Final 10/15/16 14:40 Chest Gram Stain - Final 10/15/16 14:40 Chest Tissue Culture - Final 10/15/16 14:40 Chest Gram Stain - Final 10/15/16 14:40 Chest Wound Culture - Final 10/15/16 14:40 Chest Gram Stain - Final 10/15/16 14:40 Chest Wound Culture - Final 10/11/16 06:40 Blood Blood Culture - Final No Growth after 144 hours 10/11/16 11:47 Catheter Tip Catheter Tip Culture - Final 10/06/16 10:00 Blood Blood Culture - Final No Growth after 144 hours 10/06/16 21:00 Sputum Gram Stain - Final 10/06/16 21:00 Sputum Sputum Culture - Final Haemophilus influenzae Serratia marcescens IV Fluids: D5W at 70 mL per hour. Lungs: Essentially clear throughout, diminished bilateral bases. Respirations are symmetrical and unlabored. O2 sat: 97% on 5 L nasal cannula. I/S: 500-750 mL, reviewed with the patient importance of using his incentive spirometry every hour while awake. The patient is motivated to use his incentive spirometry and has demonstrated proper use of the insulin spirometry but will need prompting and WITH use due to his generalized weakness. Heart: S1S2, irregular rhythm with controlled rate, negative for S3, gallop or murmur. Bedside telemetry showing atrial fibrillation heart rate 95. Chest incision clean with dressing clean and dry. MEGHAN drains in place draining serosanguineous drainage. Right chest MEGHAN drain with 340 mL output in the last 8 hours, 540 mL output in the last 24 hours. The mid chest MEGHAN drain draining serosanguineous drainage. 110 mL output in the last 8 hours, 170 mL output in the last 24 hours. Left chest MEGHAN drain draining thin serosanguineous drainage. 0 mL output in the last 8 hours, 0 mL output in the last [address] in place, reminded patient on use of her heart hugger. Knee-high ORLIN hose and sequential compression devices in place to bilateral lower extremities. Abdomen: Soft, Positive bowel sounds present in all 4 quadrants. Last bowel movement this a.m. CBGs: 112-129 mg/dL in the last 24 hours. U/O: Adequate, Duong catheter for accurate I&O. 610 mL output in the last 8 hours. 24 hr Total: Intake & Output 10/18/16 10/19/16 10/20/16 10/21/16 06:59 06:59 06:59 06:59 Intake Total 647.0 1832 1230 300 Output Total 2150 9 3650 260 Balance -1503.0 -197 -2420 40 Weight 111 kg 113.3 kg 112.7 kg Active Medications Albuterol/Ipratropium (Duoneb 0.5 Mg-3 Mg/3 Ml Soln) 3 ml INHALATION RT-QID [facility] Amiodarone HCl (Cordarone) 200 mg PO BID@0600,1800 [facility] Last Admin: 10/20/16 05:35 Dose: 200 mg Aspirin (Aspirin) 81 mg PO DAILY [facility] Last Admin: 10/20/16 09:01 Dose: 81 mg Digoxin (Lanoxin) 125 mcg PO DAILY [facility] Last Admin: 10/20/16 09:02 Dose: 125 mcg Heparin Sodium (Porcine) (Heparin) 5,000 unit SQ Q8HR [facility] Last Admin: 10/20/16 09:00 Dose: 5,000 unit Piperacillin/Tazobactam/ (Dextrose 3.375 gm/ IV Solution) 50 mls @ 12.5 mls/hr IVPB Q8H [facility] Last Admin: 10/20/16 11:37 Dose: 12.5 mls/hr Ibuprofen (Motrin Oral Susp Cup) 600 mg PO Q6H PRN PRN Reason: Fever and/or Mild Pain Last Admin: 10/11/16 02:21 Dose: 600 mg Insulin Human Lispro (Humalog) 0 unit SQ ACHS [facility] PRN Reason: Protocol Last Admin: 10/20/16 09:00 Dose: Not Given Levothyroxine Sodium (Synthroid) 150 mcg PO DAILY@0630 [facility] Last Admin: 10/20/16 05:35 Dose: 150 mcg Metoprolol Tartrate (Lopressor) 25 mg PO BID [facility] Last Admin: 10/20/16 09:02 Dose: Not Given Miscellaneous Information (Magnesium Per Protocol) 1 each MISCELLANE DAILY PRN ; Protocol PRN Reason: Per Protocol Miscellaneous Information (Phosphorus Per Protocol) 1 each MISCELLANE DAILY PRN ; Protocol PRN Reason: Per Protocol Miscellaneous Information (Potassium Per Protocol) 1 each MISCELLANE DAILY PRN ; Protocol PRN Reason: Per Protocol Pantoprazole Sodium (Protonix) 40 mg IVP DAILY [facility] Last Admin: 10/20/16 09:02 Dose: 40 mg Potassium Chloride (K-Dur 20) 20 meq PO Q1HR [facility] Stop: 10/20/16 13:01 Last Admin: 10/20/16 11:37 Dose: 20 meq Sodium Chloride (Saline Flush) 20 ml IV Q4HR PRN PRN Reason: PICC Line Sodium Chloride (Saline Flush) 10 ml IV WEEKLY [facility] Last Admin: 10/18/16 08:29 Dose: Not Given Warfarin Sodium (Coumadin) 1 mg PO ONCE@1800 [facility] Stop: 10/20/16 18:01 Plan: 1. Continue aspirin, Lopressor, digoxin, heparin sc. 2. Continue amiodarone 200 mg PO BID, for A. fib prophylaxis. Coumadin 1 mg by mouth 1 today ordered. INR 1.5 after 1 dose of 5 mg of Coumadin. 3. Continue antibiotics per infectious disease. Dr. Ramos is following. 4. Pulmonary management per Dr. Albert recommendations. Right-sided thoracentesis completed yesterday by Dr. Albert with 1.5 L of blood-tinged fluid drained. 5. Daily labs, x-rays. 6. Diabetic management per internal medicine service. 7. MEGHAN drains will remain in place. We will continue to monitor drainage. 8. Strict I/O, daily weights. 9. More recommendations as patient progresses.
[2016-10-20] MEDS: IPRATROPIUM-ALBUTEROL 3 ML NEB INHALATION SCH ×3 (12:20→20:35)
--- NOTE | 2016-10-20 14:23 | P.PN ---
Subjective This is a 61-year-old male patient was undergone a cardiac surgery which involved aVR with mitral valve repair on 09/29/2016. The patient was discharged home on 10/04/2016. Following that the patient was readmitted to the hospital because of increased shortness of breath, acute respiratory failure , cough, syncope and sternal wound dehiscence. The patient was seen by cardiology thoracic surgery and he was taken back to the operating room where he underwent a closure of the sternal wound with a muscle flap on 10/15/2016. The patient was extubated off the mechanical ventilator on 10/16/2016. He initially had difficulties with swallowing yet he is currently doing better. He developed a right-sided pleural effusion he had an attempt for thoracentesis was done yesterday by Dr. Armando and this failed. Apparently there was no adequate fluid drainage during the procedure. As such the procedure was aborted. The patient has a left-sided chest tube in place which is draining approximately less than 100 mL over the past 24 hours and the plan is to take of the chest tube. He is actually taking well at 6 L/m nasal cannula. His is or 82. He is hemodynamically stable. He is pulling approximately 500 on the incentive spirometer. The patient has MEGHAN drains on his sternal wound a total of 3 and the drainage is not active at this point. The patient is hemodynamically stable on no pressors. His CODE STATUS is full at this point. On 10/19/2016 I'm seeing this patient in follow-up. He is doing well. He is sitting up on a bed and he is on 5 L of oxygen by nasal cannula. His chest x- ray still showing better pleural effusion worse on the right and the plan is to proceed with thoracentesis this morning. He is tolerating his diet. No nausea. No vomiting. No chest pain. Sternum stable clean and intact. No fever. No chills. White cell count is at 10.0 and hemoglobin is at 8.4 which is stable. The patient remains on IV Zosyn. I discussed the case with Dr. Ramos and we'll keep the Sporanox on hold for the time being due to concerns of drug interaction. The patient has had Haemophilus and Serratia in his sputum. The MEGHAN drains are still in place. MEGHAN drain #1 has put out 20 mL and # 2 has put out 80 mL of urine output is around 50 mL an hour. On 10/20/2016 I'm seeing this patient in follow-up. The patient has been weaned down to 4 L of oxygen by nasal cannula. He underwent a thoracentesis of the right lung yesterday and total of 1.6 L of pleural fluid was aspirated from the right lung. Patient is doing well. The patient is not having any major respiratory difficulties. The patient was able to breathe better following the procedure. No significant cough or sputum production. The patient has Haemophilus and consideration his sputum and the patient is still on IV Zosyn. MEGHAN drain is still in place. No chills. No fever. He is gradually increasing his oral intake. No other significant events over the past 24 hours. He is having episodes of paroxysmal atrial fibrillation and the patient is on no anti- coagulation at this point. This will be further discussed with cardiology. Objective - Vital Signs Vital signs: Vital Signs Temp 97.8 F 10/20/16 12:00 Pulse 75 10/20/16 13:00 Resp 15 10/20/16 13:00 BP 81/56 10/20/16 13:00 Pulse Ox 96 10/20/16 13:00 Intake & Output 10/19/16 10/20/16 10/20/16 18:59 06:59 18:59 Intake Total 970 260 490 Output Total 2255 1395 335 Balance -1285 -1135 155 Weight 113.3 kg 112.7 kg Intake: IV 770 260 490 D5W @70 440 Dextrose 5% in Water 1, 770 210 000 ml @ 70 mls/hr IV . [id number] Rx#:[id number] Piperacillin-Tazobactam 3 50 50 .375 gm In Dextrose/Water 1 50ml.bag @ 12.5 mls/hr IVPB Q8H [facility] Rx#: [id number] Intake, IV Titration 200 Amount Albumin Human 25% 50 ml 50 In Empty Bag 1 bag @ 100 mls/hr IVPB ONCE ONE Rx#: [id number] Albumin Human 25% 50 ml 50 In Empty Bag 1 bag @ 100 mls/hr IVPB ONCE ONE Rx#: [id number] Potassium Chloride 10 meq 100 In Water For Injection 1 100ml.bag @ 100 mls/hr IVPB Q1H [facility] Rx#: [id number] Output: Drainage 130 580 Medial Chest 30 140 Right Lateral Chest 100 440 Urine 525 815 335 Other 1600 Other: Voiding Method Indwelling Catheter Indwelling Catheter Indwelling Catheter # Bowel Movements 1 ABP, PAP, CO, CI - Last Documented Arterial Blood Pressure 104/50 - Exam Head exam was generally normal. There was no scleral icterus or corneal arcus. Mucous membranes were moist.Neck was supple and without jugular venous distension, thyromegaly, or carotid bruits. Carotids were easily palpable bilaterally. There was no adenopathy. Lung sounds are diminished in the lung base bilaterally especially in the right lung base. The patient has weak and poor respiratory efforts. Patient had a left-sided chest tube in place. Heart sounds are regular, positive S1-S2 and there is no significant murmurs appreciated. Sternum was stable clean and intact and the patient's sternal wound is covered with a Aquacel silver dressing. MEGHAN drains were visualized. No active drainage from the wounds.Abdominal exam revealed normal bowel sounds. The abdomen was soft, non-tender, and without masses, organomegaly, or appreciable enlargement of the abdominal aorta.Examination of the extremities revealed easily palpable radial, femoral and pedal pulses. There was no cyanosis , clubbing or edema. - Labs CBC & Chem 7: 10/20/16 10:02 10/20/16 10:02 Labs: Abnormal Lab Results - Last 24 Hours (Table) 10/19/16 10/19/16 10/20/16 Range/Units 16:59 20:18 00:37 RBC (4.30-5.90) m/uL Hgb (13.0-17.5) gm/dL Hct (39.0-53.0) % RDW (11.5-15.5) % Lymphocytes # (1.0-4.8) k/uL PT (9.0-12.0) sec Potassium (3.5-5.1) mmol/L BUN (9-20) mg/dL Glucose (74-99) mg/dL POC Glucose (mg/dL) 122 H 112 H 122 H (75-99) mg/dL Calcium (8.4-10.2) mg/dL Magnesium (1.6-2.3) mg/dL 10/20/16 10/20/16 10/20/16 Range/Units 05:30 07:35 10:02 RBC (4.30-5.90) m/uL Hgb (13.0-17.5) gm/dL Hct (39.0-53.0) % RDW (11.5-15.5) % Lymphocytes # (1.0-4.8) k/uL PT 14.6 H (9.0-12.0) sec Potassium 3.3 L (3.5-5.1) mmol/L BUN 32 H (9-20) mg/dL Glucose 110 H (74-99) mg/dL POC Glucose (mg/dL) 110 H (75-99) mg/dL Calcium 7.1 L (8.4-10.2) mg/dL Magnesium 2.6 H (1.6-2.3) mg/dL 10/20/16 10/20/16 Range/Units 10:02 12:03 RBC 2.76 L (4.30-5.90) m/uL Hgb 8.4 L (13.0-17.5) gm/dL Hct 26.3 L (39.0-53.0) % RDW 17.8 H (11.5-15.5) % Lymphocytes # 0.6 L (1.0-4.8) k/uL PT (9.0-12.0) sec Potassium (3.5-5.1) mmol/L BUN (9-20) mg/dL Glucose (74-99) mg/dL POC Glucose (mg/dL) 109 H (75-99) mg/dL Calcium (8.4-10.2) mg/dL Magnesium (1.6-2.3) mg/dL Microbiology - Last 24 Hours (Table) 10/15/16 14:40 Anaerobic Culture - Final Chest 10/15/16 14:40 Anaerobic Culture - Final Chest 10/15/16 14:40 Anaerobic Culture - Final Chest 10/15/16 14:40 Gram Stain - Final Chest Tissue Culture - Final Assessment and Plan Plan: Assessment 1 status post aortic valve replacement and mitral valve repair and the patient is postop day #21 2 sternal wound dehiscence, post muscle flap, postop day #5 3 post extubation and the patient was weaned off the mechanical ventilator on 4 bilateral pleural effusion, status post thoracentesis of the right lung and evacuation of 1.6 L of pleural fluid 5 left-sided chest tube with diminished output, and the chest tube was removed yesterday 6 paroxysmal fibrillation, paroxysmal currently in sinus rhythm, on no anticoagulants 7 hypertension 8 hyperlipidemia 9 thyroid cancer with a previous thyroidectomy 10 osteoarthritis 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 The patient was seen by Dr. Ramos. Recommendations were treating this patient with itraconazole 100 mg by mouth twice a day. 12 Serratia marcescens and Haemophilus influenza in the sputum, currently on IV Zosyn 13 hypernatremia, improving with D5 water at the rate of 75 mL an hour. Plan Monitor the output from the MEGHAN drains. The left-sided chest tube has already been removed. The right-sided thoracentesis was completed. Today chest x-ray still showing some bilateral pleural effusion and there is some recurrence and pleural effusion on the right. Nevertheless, the patient is doing better. The patient is down to 40 to oxygen nasal cannula. We'll encourage use of incentive spirometer. Hold the diuretic as long as the patient is having some episodes of hypo-tension. Continued IV Zosyn. Keep the patient ICU for another 24 hours. We'll continue to follow.
--- NOTE | 2016-10-20 17:44 | PN ---
DATE OF SERVICE: 10/20/2016 PRESENTING COMPLAINT: Thoracic surgery. INTERVAL HISTORY: This is a patient with multiple medical problems, status post sternum surgery with pectoralis flap. Patient is a bit more awake today; did actually tolerate his breakfast. Remains in atrial fibrillation. The rate is well controlled, though he is weak and tired. The patient's is at the bedside. He is getting IV antibiotics. Review of systems done for constitutional, cardiovascular, GI, pulmonary; relevant findings as above. Current medications are reviewed that include DuoNeb, Cordarone, aspirin, digoxin, subcutaneous heparin, Synthroid, Protonix IV, Zosyn and Coumadin. On examination, temperature 97.8, pulse 78, respiration 29, blood pressure 97/64, pulse ox 97% on 3 L. GENERAL APPEARANCE: Lying in bed. Tired-appearing. EYES: Pupils equal. Conjunctivae pale. NECK: JVD unable to assess. Mass not palpable. RESPIRATORY: Effort normal. LUNGS: Decreased breath sounds. CARDIOVASCULAR: Heart sounds irregular. ABDOMEN: Soft, nontender. Liver and spleen not palpable. PSYCHIATRY: A bit more awake. Following commands. Acknowledging. INVESTIGATIONS: White count 9.4, hemoglobin 8.4. Potassium 3.3. BUN 32, creatinine 0.96. Check x-ray reported to be stable with a portable film. Some pleural effusion. ASSESSMENT: 1. Sternal wound dehiscence; now has a pectoralis flap in place. It was initially done for a coronary artery bypass graft. 2. Acute hypoxic respiratory failure requiring ventilator assistance; now extubated on nasal cannula. 3. Acute renal failure, probably acute tubular necrosis from hypoperfusion, now resolved. 4. Persistent atrial fibrillation, rate controlled; started on Coumadin. 5. Chronic histoplasmosis, status post biopsy. Current status unknown. 6. Bilateral pleural effusion. 7. Right thoracentesis of bloody fluid; 1.6 liters was removed. 8. Hypercholesterolemia. 9. Essential hypertension, history of. 10. Hypothyroidism. 11. Currently hypotension, multifactorial. 12. Obesity. 13. Primary osteoarthritis. 14. Hypothyroidism. 15. Moderate secondary pulmonary hypertension. 16. Gastroesophageal reflux disease. 17. Hypernatremia from free water deficit, with improvement. 18. Pneumonia secondary to Haemophilus influenzae and Serratia marcescens. PLAN: Care was discussed with his at the bedside. Patient's CODE STATUS is FULL. Continue current medication and treatment plan. Prognosis still guarded. Will follow.
[2016-10-20 17:54] LABS: Glucose,Whole Blood 98 mg/dL (75-99)
[2016-10-20] MEDS ORDERED: WARFARIN 1 MG TAB PO ONE (18:00)
--- NOTE | 2016-10-20 21:28 | P.PN ---
Subjective Principal diagnosis: Status post open-heart surgery, respiratory failure, atrial fibrillation and CHF and sternal dehiscence, pleural effusion Patient is a status post repair of the mitral valve and also aortic valve replacement. Patient seemed to be doing better. His remained extubated. He seemed to be much more alert. He passed a swallow evaluation and the diet is being advanced. His maintaining sinus rhythm. We will continue current medical therapy and increase activity as tolerated. Patient is reevaluated in . Patient had thoracocentesis and 1.6 L of fluid was taken out. Patient is sitting up and seemed to be relatively comfortable. Patient is to have some difficulty swallowing. He is getting bedside physical therapy and patient went back into atrial fibrillation. Patient is going to be started on Coumadin today. Increase activity as tolerated and Patient is reevaluated on . Patient remains extubated. Patient seemed to be tolerating in the heating better. Seemed to be more alert. Doesn't appear to be in any distress. A chest x-ray showed a car or megaly and bilateral effusions and some infiltrates. Left-sided chest tube is been removed. Patient is in atrial fibrillation with controlled ventricular response. His INR today is 1.5. He was given 1 mg of Coumadin. Overall this seemed to be some improvement we will continue the current management and increase activity as tolerated Objective - Vital Signs Vital signs: Vital Signs Temp 97.8 F 10/20/16 16:00 Pulse 85 10/20/16 20:52 Resp 15 10/20/16 19:00 BP 87/47 10/20/16 19:00 Pulse Ox 94 L 10/20/16 19:00 Intake & Output 10/20/16 10/20/16 10/21/16 06:59 18:59 06:59 Intake Total 260 1110 Output Total 1395 630 25 Balance -1135 480 -25 Weight 112.7 kg Intake: IV 260 630 D5W @70 580 Dextrose 5% in Water 1, 210 000 ml @ 70 mls/hr IV . [id number] ONE Rx#:[id number] Piperacillin-Tazobactam 3 50 50 .375 gm In Dextrose/Water 1 50ml.bag @ 12.5 mls/hr IVPB Q8H [facility] Rx#: [id number] Oral 480 Output: Drainage 580 150 Left Lateral Chest 10 Medial Chest 140 140 Right Lateral Chest 440 Urine 815 480 25 Other: Voiding Method Indwelling Catheter Indwelling Catheter # Bowel Movements 1 ABP, PAP, CO, CI - Last Documented Arterial Blood Pressure 104/50 - Exam GENERAL EXAM: Patient is extubated. He is alert, awake. He is still weak and frail HEENT: Normocephalic. Normal reaction of pupils, equal size, normal range of extraocular motion. No erythema or exudates in the throat. NECK: No masses, no nuchal rigidity. CHEST: No chest wall deformity. LUNGS: [Diminished breath sounds, scattered rhonchi HEART: Irregular heart rhythm ABDOMEN: No hepatosplenomegaly, normal bowel sounds, no guarding or rigidity. SKIN: No rashes CENTRAL NERVOUS SYSTEM: Sedated EXTREMITIES: No cyanosis, clubbing or edema. - Labs CBC & Chem 7: 10/20/16 10:02 10/20/16 15:47 Labs: Abnormal Lab Results - Last 24 Hours (Table) 10/20/16 10/20/16 10/20/16 Range/Units 00:37 05:30 07:35 RBC (4.30-5.90) m/uL Hgb (13.0-17.5) gm/dL Hct (39.0-53.0) % RDW (11.5-15.5) % Lymphocytes # (1.0-4.8) k/uL PT 14.6 H (9.0-12.0) sec Potassium (3.5-5.1) mmol/L BUN (9-20) mg/dL Glucose (74-99) mg/dL POC Glucose (mg/dL) 122 H 110 H (75-99) mg/dL Calcium (8.4-10.2) mg/dL Magnesium (1.6-2.3) mg/dL 10/20/16 10/20/16 10/20/16 Range/Units 10:02 10:02 12:03 RBC 2.76 L (4.30-5.90) m/uL Hgb 8.4 L (13.0-17.5) gm/dL Hct 26.3 L (39.0-53.0) % RDW 17.8 H (11.5-15.5) % Lymphocytes # 0.6 L (1.0-4.8) k/uL PT (9.0-12.0) sec Potassium 3.3 L (3.5-5.1) mmol/L BUN 32 H (9-20) mg/dL Glucose 110 H (74-99) mg/dL POC Glucose (mg/dL) 109 H (75-99) mg/dL Calcium 7.1 L (8.4-10.2) mg/dL Magnesium 2.6 H (1.6-2.3) mg/dL 10/20/16 Range/Units 15:47 RBC (4.30-5.90) m/uL Hgb (13.0-17.5) gm/dL Hct (39.0-53.0) % RDW (11.5-15.5) % Lymphocytes # (1.0-4.8) k/uL PT (9.0-12.0) sec Potassium 3.4 L (3.5-5.1) mmol/L BUN (9-20) mg/dL Glucose (74-99) mg/dL POC Glucose (mg/dL) (75-99) mg/dL Calcium (8.4-10.2) mg/dL Magnesium (1.6-2.3) mg/dL Microbiology - Last 24 Hours (Table) 10/15/16 14:40 Anaerobic Culture - Final Chest Assessment and Plan (1) Acute renal failure Status: Acute (2) Acute respiratory failure Status: Acute (3) Status post aortic valve replacement Status: Acute (4) Status post mitral valve repair Status: Acute (5) Atrial fibrillation with RVR Status: Acute (6) Congestive heart failure due to valvular disease Status: Acute Plan: Continue anticoagulation. Incentive spirometry. Physical therapy. Patient is on still on antibiotic Zosyn. Possible transfer to telemetry within next 24-48 hours
[2016-10-20 22:26] LABS: Glucose,Whole Blood 106 mg/dL (75-99)
--- NOTE | 2016-10-20 22:36 | P.PN ---
Subjective Principal diagnosis: Respiratory failure This is a 71-year-old male who came in the hospital on September 23 and underwent a JAYDE and heart catheterization showing a ruptured chordae tendonae, mitral regurgitation, moderate pulmonary hypertension, with history of paroxysmal atrial fibrillation and heart failure. 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 With this the patient was initiated to itraconazole. He however developed atrial fibrillation. Because of this he was initiated to amiodarone. The dose of itraconazole was reduced by 50%. There is no evidence of any ulcerations of the QT interval while he was in hospital. He eventually was discharged home. It is related that he was not able to obtain the itraconazole. In this is going to be addressed in the coming days. However the brought him to the emergency room feeling very short of breath. He was having abdominal distention with increasing shortness of breath. Through his stay in emergency center he continues to feel more more short of breath. He then developed respiratory failure which required intubation sedation mechanical ventilation. Over the following days he is improved was extubated in his continue to improve. His extensive edema has improved. Especially the massive abdominal edema that he was having. Extremity edema is also improved. He is awake and interactive voices improving further today Nursing staff relates he's eating considerably better with assistance. He did laugh and joke. Objective - Vital Signs Vital signs: Vital Signs Temp 97.8 F 10/20/16 16:00 Pulse 85 10/20/16 20:52 Resp 15 10/20/16 19:00 BP 87/47 10/20/16 19:00 Pulse Ox 94 L 10/20/16 19:00 Intake & Output 10/20/16 10/20/16 10/21/16 06:59 18:59 06:59 Intake Total 260 1110 Output Total 1395 630 25 Balance -1135 480 -25 Weight 112.7 kg Intake: IV 260 630 D5W @70 580 Dextrose 5% in Water 1, 210 000 ml @ 70 mls/hr IV . [id number] ONE Rx#:[id number] Piperacillin-Tazobactam 3 50 50 .375 gm In Dextrose/Water 1 50ml.bag @ 12.5 mls/hr IVPB Q8H [facility] Rx#: [id number] Oral 480 Output: Drainage 580 150 Left Lateral Chest 10 Medial Chest 140 140 Right Lateral Chest 440 Urine 815 480 25 Other: Voiding Method Indwelling Catheter Indwelling Catheter # Bowel Movements 1 ABP, PAP, CO, CI - Last Documented Arterial Blood Pressure 104/50 - Exam This is a 71-year-old male. comfortable HEENT: Head is atraumatic, normocephalic. Pupils equal, round. Sclerae is anicteric. Conjunctiva slightly pale. Mucous membranes of the mouth are moist. No thrush noted. NECK: Supple. No JVD. No lymphadenopathy. No thyromegaly. LUNGS: There is symmetrical air entry. There are bibasal crackles. No significant bronchial sounds. HEART: Irregular with no no murmur Dressing on sternal wound with no breakthrough bleeding or drainage. Right sided pleural chest tube in place. ABDOMEN: Distinctly distended. Few bowel sounds are noted. Organomegaly is not detected. EXTREMITIES: +1 bilateral pedal edema. No calf tenderness. ORLIN hose in place. NEUROLOGICAL: Awake and interactive Skin :patient has an extensive dressing to the chest where there was difficulty with the dehiscence. - Labs CBC & Chem 7: 10/20/16 10:02 10/20/16 15:47 Labs: Abnormal Lab Results - Last 24 Hours (Table) 10/20/16 10/20/16 10/20/16 Range/Units 00:37 05:30 07:35 RBC (4.30-5.90) m/uL Hgb (13.0-17.5) gm/dL Hct (39.0-53.0) % RDW (11.5-15.5) % Lymphocytes # (1.0-4.8) k/uL PT 14.6 H (9.0-12.0) sec Potassium (3.5-5.1) mmol/L BUN (9-20) mg/dL Glucose (74-99) mg/dL POC Glucose (mg/dL) 122 H 110 H (75-99) mg/dL Calcium (8.4-10.2) mg/dL Magnesium (1.6-2.3) mg/dL 10/20/16 10/20/16 10/20/16 Range/Units 10:02 10:02 12:03 RBC 2.76 L (4.30-5.90) m/uL Hgb 8.4 L (13.0-17.5) gm/dL Hct 26.3 L (39.0-53.0) % RDW 17.8 H (11.5-15.5) % Lymphocytes # 0.6 L (1.0-4.8) k/uL PT (9.0-12.0) sec Potassium 3.3 L (3.5-5.1) mmol/L BUN 32 H (9-20) mg/dL Glucose 110 H (74-99) mg/dL POC Glucose (mg/dL) 109 H (75-99) mg/dL Calcium 7.1 L (8.4-10.2) mg/dL Magnesium 2.6 H (1.6-2.3) mg/dL 10/20/16 10/20/16 Range/Units 15:47 22:16 RBC (4.30-5.90) m/uL Hgb (13.0-17.5) gm/dL Hct (39.0-53.0) % RDW (11.5-15.5) % Lymphocytes # (1.0-4.8) k/uL PT (9.0-12.0) sec Potassium 3.4 L (3.5-5.1) mmol/L BUN (9-20) mg/dL Glucose (74-99) mg/dL POC Glucose (mg/dL) 106 H (75-99) mg/dL Calcium (8.4-10.2) mg/dL Magnesium (1.6-2.3) mg/dL Microbiology - Last 24 Hours (Table) 10/15/16 14:40 Anaerobic Culture - Final Chest Laboratory Results WBC 9.4 k/uL (3.8-10.6) 10/20/16 10:02 RBC 2.76 m/uL (4.30-5.90) L 10/20/16 10:02 Hgb 8.4 gm/dL (13.0-17.5) L 10/20/16 10:02 Hct 26.3 % (39.0-53.0) L 10/20/16 10:02 MCV 95.4 fL (80.0-100.0) 10/20/16 10:02 MCH 30.5 pg (25.0-35.0) 10/20/16 10:02 MCHC 32.0 g/dL (31.0-37.0) 10/20/16 10:02 RDW 17.8 % (11.5-15.5) H 10/20/16 10:02 Plt Count 172 k/uL (150-450) 10/20/16 10:02 Neutrophils % 82 % 10/20/16 10:02 Neutrophils % (Manual) 85.5 % 10/08/16 04:20 Band Neutrophils % 0.5 % 10/08/16 04:20 Lymphocytes % 7 % 10/20/16 10:02 Lymphocytes % (Manual) 5.5 % 10/08/16 04:20 Monocytes % 2 % 10/20/16 10:02 Monocytes % (Manual) 4.0 % 10/08/16 04:20 Eosinophils % 8 % 10/20/16 10:02 Eosinophils % (Manual) 3.0 % 10/08/16 04:20 Basophils % 0 % 10/20/16 10:02 Metamyelocytes % 1.0 % 10/08/16 04:20 Myelocytes % 0.5 % 10/08/16 04:20 Neutrophils # 7.7 k/uL (1.3-7.7) 10/20/16 10:02 Neutrophils # (Manual) 16.2 k/uL (1.3-7.7) H 10/08/16 04:20 Lymphocytes # 0.6 k/uL (1.0-4.8) L 10/20/16 10:02 Lymphocytes # (Manual) 1.0 k/uL (1.0-4.8) 10/08/16 04:20 Monocytes # 0.2 k/uL (0-1.0) 10/20/16 10:02 Monocytes # (Manual) 0.8 k/uL (0-1.0) 10/08/16 04:20 Eosinophils # 0.7 k/uL (0-0.7) 10/20/16 10:02 Eosinophils # (Manual) 0.6 k/uL (0-0.7) 10/08/16 04:20 Basophils # 0.0 k/uL (0-0.2) 10/20/16 10:02 Nucleated RBCs 0 /100 WBC (0-0) 10/08/16 04:20 Manual Slide Review Performed 10/08/16 04:20 Large Platelets Present 10/06/16 21:00 Polychromasia Present 10/08/16 04:20 Hypochromasia Marked 10/20/16 10:02 Poikilocytosis Moderate 10/20/16 10:02 Poikilocytosis (manual Present 10/08/16 04:20 Anisocytosis Slight 10/20/16 10:02 Macrocytosis Slight 10/20/16 10:02 Ovalocytes Present 10/06/16 21:00 PT 14.6 sec (9.0-12.0) H 10/20/16 05:30 INR 1.5 (<1.1) 10/20/16 05:30 APTT 47.0 sec (22.0-30.0) H 10/14/16 06:30 D-Dimer 6.31 mg/L FEU (<0.60) H 10/06/16 21:00 Sample Site [place] 10/16/16 04:45 ABG pH 7.46 (7.35-7.45) H 10/16/16 04:45 ABG pCO2 41 mmHg (35-45) 10/16/16 04:45 ABG pO2 101 mmHg (83-108) 10/16/16 04:45 ABG HCO3 29 mmol/L (21-25) H 10/16/16 04:45 ABG Total CO2 30 mmol/L (19-24) H 10/16/16 04:45 ABG O2 Saturation 98.0 % (94-97) H 10/16/16 04:45 ABG Base Excess 5.3 mmol/L 10/16/16 04:45 FiO2 50 % 10/16/16 04:45 Sodium 141 mmol/L (137-145) 10/20/16 10:02 Potassium 3.4 mmol/L (3.5-5.1) L 10/20/16 15:47 Chloride 107 mmol/L (98-107) 10/20/16 10:02 Carbon Dioxide 29 mmol/L (22-30) 10/20/16 10:02 Anion Gap 5 mmol/L 10/20/16 10:02 BUN 32 mg/dL (9-20) H 10/20/16 10:02 Creatinine 0.96 mg/dL (0.66-1.25) 10/20/16 10:02 Est GFR (MDRD) Af Amer >60 (>60 ml/min/1.73 sqM) 10/20/16 10:02 Est GFR (MDRD) Non-Af >60 (>60 ml/min/1.73 sqM) 10/20/16 10:02 Glucose 110 mg/dL (74-99) H 10/20/16 10:02 POC Glucose (mg/dL) 106 mg/dL (75-99) H 10/20/16 22:16 POC Glu [employer] Inspector ID 10/20/16 22:[address] Glu mg/dL 120 mg/dL 10/07/16 05:18 Hemoglobin A1c 5.8 % (4.2-6.1) 10/07/16 05:18 Plasma Lactic Acid Samir 1.0 mmol/L (0.7-2.0) 10/07/16 05:18 Calcium 7.1 mg/dL (8.4-10.2) L 10/20/16 10:02 Ionized Calcium Guille 4.4 mg/dL (4.5-5.3) L 10/15/16 05:00 Phosphorus 2.9 mg/dL (2.5-4.5) 10/20/16 10:02 Magnesium 2.6 mg/dL (1.6-2.3) H 10/20/16 10:02 Total Bilirubin 0.9 mg/dL (0.2-1.3) 10/18/16 05:00 AST 27 U/L (17-59) 10/18/16 05:00 ALT 38 U/L (21-72) 10/18/16 05:00 Alkaline Phosphatase 62 U/L (38-126) 10/18/16 05:00 Total Creatine Kinase 736 U/L (55-170) H 10/06/16 09:50 CK-MB (CK-2) 7.2 ng/mL (0.0-2.4) H* 10/06/16 09:50 CK-MB (CK-2) Rel Index 1.0 10/06/16 09:50 Troponin I 1.510 ng/mL (0.000-0.034) H* 10/06/16 09:50 NT-Pro-B Natriuret Pep 6520 pg/mL 10/06/16 09:50 Total Protein 5.2 g/dL (6.3-8.2) L 10/18/16 05:00 Albumin 2.4 g/dL (3.5-5.0) L 10/18/16 05:00 TSH 32.400 mIU/L (0.465-4.680) H 10/06/16 09:50 Free T4 0.88 ng/dL (0.78-2.19) 10/06/16 09:50 Urine Color Dark Yellow 10/06/16 18:30 Urine Appearance Cloudy (Clear) 10/06/16 18:30 Urine pH 5.0 (5.0-8.0) 10/06/16 18:30 Ur Specific [place] 1.018 (1.001-1.035) 10/06/16 18:30 Urine Protein Trace (Negative) H 10/06/16 18:30 Urine Glucose (UA) Negative (Negative) 10/06/16 18:30 Urine Ketones Negative (Negative) 10/06/16 18:30 Urine Blood Negative (Negative) 10/06/16 18:30 Urine Nitrite Negative (Negative) 10/06/16 18:30 Urine Bilirubin 1+ (Negative) H 10/06/16 18:30 Urine Urobilinogen 4.0 mg/dL (<2.0) 10/06/16 18:30 Ur Leukocyte Esterase Negative (Negative) 10/06/16 18:30 Urine WBC 10 /hpf (0-5) H 10/06/16 18:30 Ur Squamous Epith Cells 2 /hpf (0-4) 10/06/16 18:30 Calcium Oxalate Crystal Occasional /hpf (None) H 10/06/16 18:30 Amorphous Sediment Occasional /hpf (None) H 10/06/16 18:30 Hyaline Casts 79 /lpf (0-2) H 10/06/16 18:30 Urine Mucus Rare /hpf (None) H 10/06/16 18:30 Vancomycin Trough 15.0 ug/mL 10/17/16 04:10 Digoxin 0.9 ng/mL 10/17/16 20:36 Blood Type O Positive 10/14/16 13:52 Blood Type Recheck No 10/14/16 13:52 Antibody Screen NEGATIVE 10/14/16 13:52 Crossmatch See Detail 10/14/16 13:52 Transfuse Platelets 10/15/16 10/14/16 13:52 Spec Expiration Date 10/17/2016 - 235110/14/16 13:52 Microbiology 10/15/16 14:40 Chest Anaerobic Culture - Final 10/15/16 14:40 Chest Anaerobic Culture - Final 10/15/16 14:40 Chest Anaerobic Culture - Final 10/15/16 14:40 Chest Gram Stain - Final 10/15/16 14:40 Chest Tissue Culture - Final 10/15/16 14:40 Chest Gram Stain - Final 10/15/16 14:40 Chest Wound Culture - Final 10/15/16 14:40 Chest Gram Stain - Final 10/15/16 14:40 Chest Wound Culture - Final 10/11/16 06:40 Blood Blood Culture - Final No Growth after 144 hours 10/11/16 11:47 Catheter Tip Catheter Tip Culture - Final 10/06/16 10:00 Blood Blood Culture - Final No Growth after 144 hours 10/06/16 21:00 Sputum Gram Stain - Final 10/06/16 21:00 Sputum Sputum Culture - Final Haemophilus influenzae Serratia marcescens Assessment and Plan (1) Acute respiratory failure Narrative/Plan: 71-year-old male with history of thyroid cancer recently was hospitalized at which point in time was having difficulties with congestive heart failure. He was noted evidence of aortic valve insufficiency and mitral valve regurgitation. There is also some lymphadenopathy noted within the chest. As he was taken to the operating room and aortic valve replacement occurred as well as mitral valve repair. Biopsy of mediastinal lymph nodes also occurred. 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 Patient was initiated to itraconazole. He however developed atrial fibrillation and was placed on amiodarone and the itraconazole dose was reduced. Upon discharge he has not been able to continue the itraconazole. However is only been home for a very short period of time we developed the progressive shortness of breath. At admission he has extensive edema in his abdominal cavity as well as evidence of congestive heart failure. Concerns to pneumonia given his significant leukocytosis and antibiotic therapy was begun with piperacillin tazobactam and vancomycin. Sputum culture with Haemophilus and Serratia resistant to Unasyn susceptible to Zosyn. We Will Continue Zosyn, Ongoing aggressive supportive care is continuing Cardiothoracic surgery is following after the reconstruction of the sternum, cultures are negative so far. No evidence of any infection Patient had extensive leukocytosis at admission. This is now improved. Zosyn antibiotic therapy may be discontinued as of tomorrow. Fortunately the sternum cultures are all negative and no evidence of deep infection of the sternum at this time. Status: Acute (2) Status post aortic valve replacement Status: Acute (3) Status post mitral valve repair Status: Acute (4) Histoplasmosis Status: Acute
[2016-10-21] MEDS: LEVOTHYROXINE 75 MCG TAB PO SCH (05:28)
[2016-10-21] MEDS: AMIODARONE 200 MG TAB PO SCH ×2 (05:28→17:58)
[2016-10-21 05:39] LABS: Prothrombin Time 19.7 sec (9.0-12.0)
[2016-10-21 08:07] LABS: Anisocytosis Slight; Basophils % (A) 0 %; CH 29.4; CHCM 30.2; Eosinophils # (A) 0.7 k/uL (0-0.7); Eosinophils % (A) 8 %; HCT 27.9 % (39.0-53.0); HDW 3.95; HGB 8.3 gm/dL (13.0-17.5); Hypochromasia Marked; Luc # (Auto) 0.06; Luc % (Auto) 1; Lymphocytes # (A) 0.7 k/uL (1.0-4.8); Lymphocytes % (A) 8 %; MCH 29.2 pg (25.0-35.0); MCHC 29.7 g/dL (31.0-37.0); MCV 98.2 fL (80.0-100.0); Macrocytosis Slight; Mean Platelet Volume 8.8; Monocytes # (A) 0.3 k/uL (0-1.0); Monocytes % (A) 3 %; Neutrophils % (A) 80 %; Poikilocytosis Slight; RBC 2.84 m/uL (4.30-5.90); RDW 17.9 % (11.5-15.5); WBC 8.7 k/uL (3.8-10.6); WBC (Perox) 9.07
[2016-10-21 08:08] LABS: Glucose,Whole Blood 100 mg/dL (75-99)
[2016-10-21 08:17] LABS: Anion Gap 5 mmol/L; Blood Urea Nitrogen 27 mg/dL (9-20); Calcium 7.2 mg/dL (8.4-10.2); Carbon Dioxide 27 mmol/L (22-30); Chloride 108 mmol/L (98-107); Glucose 93 mg/dL (74-99); Magnesium 2.6 mg/dL (1.6-2.3); Non-African American GFR(MDRD) >60 (>60 ml/min/1.73 sqM); Phosphorous 3.5 mg/dL (2.5-4.5); Potassium 4.1 mmol/L (3.5-5.1); Sodium 140 mmol/L (137-145)
[2016-10-21] MEDS: IPRATROPIUM-ALBUTEROL 3 ML NEB INHALATION SCH ×4 (08:20→19:19)
--- NOTE | 2016-10-21 08:27 | P.PN ---
Subjective Progress note dated 10/12/2016 71-year-old male who remains intubated in the ICU. He has a sternal dehiscence and surgeries plan sometime this week. He is doing reasonably well. Yesterday he was wide awake. Today he is back on DIP or van. The plan is to keep him on the ventilator until he has his sternal repair. Current vent settings are the assist control mode rate of 14 tidal volume of 500 FiO2 50% and a PEEP of 8. Blood gases show a PaO2 of 70 for a pCO2 41 and a pH 7.46. His pressor, levophed, is on hold, he's on .9 IV at KVO Diprovan at 25 mics per kilogram per minute and vital high protein at 30 with a goal of 30. Currently he is in atrial fibrillation. Progress note dated 10/13/2016 71-year-old male who remains intubated in the ICU. 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 He is doing reasonably well. The sternal repair will be done either on or Tuesday by Dr. Riggs. The patient currently is being sedated on propofol at 20 mics per kilogram per minute. He is on lactated Ringer's at KVO and heparin drip via weightbase protocol. The norepinephrine is currently on hold and he is receiving vital high protein at a rate of 30 with a goal of 30. His vent settings include the assist control mode rate of 14 Lyme 500 FiO2 50% PEEP of 8. Blood gases show a PaO2 of 67 a pCO2 40 and a pH is 7.50. This is consistent with a metabolic alkalosis. Progress note dated 10/15/2016 71-year-old male who remains intubated in the intensive care unit. He unfortunately developed a sternal dehiscence. He is going back to the operating room today. Dr. Riggs will do the repair. Currently, the patient's on the assist control mode rate of 14 tidal Lyme 500 FiO2 50% PEEP of 8. Blood gases show a PaO2 of 79 a PaCO2 of 41 and a pH 7.47. The patient is on lactated Ringer's at KVO propofol at 10 mics per kilogram per minute. Both heparin and tube feeds are all currently. The patient will obviously stay on the ventilator until after the surgery. Hopefully we'll be able to be moved towards weaning and extubation after the case today. Objective - Vital Signs Vital signs: Vital Signs Temp 97.8 F 10/15/16 04:00 Pulse 58 L 10/15/16 07:54 Resp 16 10/15/16 07:00 BP 119/88 10/08/16 05:00 Pulse Ox 96 10/15/16 07:00 Intake & Output 10/14/16 10/15/16 10/15/16 18:59 06:59 18:59 Intake Total 405.826 9075.428 Output Total 1040 800 Balance -375.000 830.428 Weight 118.6 kg 121.8 kg Intake: IV 45 455 Lactated Ringers 1,000 ml 200 @ 20 mls/hr IV .Q24H [facility] Rx#:[id number] Piperacillin-Tazobactam 3 50 .375 gm In Dextrose/Water 1 50ml.bag @ 12.5 mls/hr IVPB Q8H STEV[facility] Rx#: [id number] Pressure Bag 45 39 Vancomycin 2,000 mg In 166 Dextrose 5% in Water 500 ml @ 166.667 mls/hr IVPB Q24H [facility] Rx#:[id number] Intake, IV Titration 230.000 935.428 Amount Heparin Sodium,Porcine/ 679.503 D5w Pmx 25,000 unit In Dextrose/Water 1 500ml. bag @ 8.6 UNITS/KG/HR 20 mls/hr IV .Q24H STEV[facility] Rx#: [id number] Lactated Ringers 1,000 ml 180 60 @ 20 mls/hr IV .Q24H [facility] Rx#:[id number] Piperacillin-Tazobactam 3 50 .375 gm In Dextrose/Water 1 50ml.bag @ 12.5 mls/hr IVPB Q8H [facility] Rx#: [id number] Propofol 500 mg In Empty 50.000 145.925 Bag 1 bag @ Titrate IV . Q0M STEVAN Rx#:[id number] Tube Feeding 330 210 Other 60 30 Output: Urine 1040 800 Other: Voiding Method Indwelling Catheter Indwelling Catheter ABP, PAP, CO, CI - Last Documented Arterial Blood Pressure 129/38 - Exam No acute distress, currently ventilated. Currently sedated. HEENT examination is unremarkable. He's got an oral endotracheal tube and NG tube. Mucous membranes are moist. Neck supple. Full range of motion. No adenopathy. Neck veins are flat. Cardiovascular examination reveals regular rhythm rate. Heart rate about 100. He is in atrial fibrillation. No murmur. Pulmonary examination reveals a few scattered rhonchi. No wheezes. A few crackles. Abdomen soft bowel sounds are heard Extremities are intact. Skin without rash or lesions. - Labs CBC & Chem 7: 10/15/16 05:00 10/15/16 05:00 Labs: Abnormal Lab Results - Last 24 Hours (Table) 10/14/16 10/14/16 10/14/16 Range/Units 08:44 11:58 12:19 RBC (4.30-5.90) m/uL Hgb (13.0-17.5) gm/dL Hct (39.0-53.0) % RDW (11.5-15.5) % Lymphocytes # (1.0-4.8) k/uL PT (9.0-12.0) sec ABG pH (7.35-7.45) ABG pO2 (83-108) mmHg ABG HCO3 (21-25) mmol/L ABG Total CO2 (19-24) mmol/L Sodium (137-145) mmol/L Chloride (98-107) mmol/L Carbon Dioxide (22-30) mmol/L BUN (9-20) mg/dL Glucose (74-99) mg/dL POC Glucose (mg/dL) 165 H 152 H 143 H (75-99) mg/dL Calcium (8.4-10.2) mg/dL Ionized Calcium Guille (4.5-5.3) mg/dL Magnesium (1.6-2.3) mg/dL Total Protein (6.3-8.2) g/dL Albumin (3.5-5.0) g/dL Crossmatch 10/14/16 10/14/16 10/14/16 Range/Units 13:52 15:50 19:28 RBC (4.30-5.90) m/uL Hgb (13.0-17.5) gm/dL Hct (39.0-53.0) % RDW (11.5-15.5) % Lymphocytes # (1.0-4.8) k/uL PT (9.0-12.0) sec ABG pH (7.35-7.45) ABG pO2 (83-108) mmHg ABG HCO3 (21-25) mmol/L ABG Total CO2 (19-24) mmol/L Sodium (137-145) mmol/L Chloride (98-107) mmol/L Carbon Dioxide (22-30) mmol/L BUN (9-20) mg/dL Glucose (74-99) mg/dL POC Glucose (mg/dL) 137 H 148 H (75-99) mg/dL Calcium (8.4-10.2) mg/dL Ionized Calcium Guille (4.5-5.3) mg/dL Magnesium (1.6-2.3) mg/dL Total Protein (6.3-8.2) g/dL Albumin (3.5-5.0) g/dL Crossmatch See Detail 10/14/16 10/15/16 10/15/16 Range/Units 23:47 04:05 04:42 RBC (4.30-5.90) m/uL Hgb (13.0-17.5) gm/dL Hct (39.0-53.0) % RDW (11.5-15.5) % Lymphocytes # (1.0-4.8) k/uL PT (9.0-12.0) sec ABG pH 7.47 H (7.35-7.45) ABG pO2 79 L (83-108) mmHg ABG HCO3 29 H (21-25) mmol/L ABG Total CO2 31 H (19-24) mmol/L Sodium (137-145) mmol/L Chloride (98-107) mmol/L Carbon Dioxide (22-30) mmol/L BUN (9-20) mg/dL Glucose (74-99) mg/dL POC Glucose (mg/dL) 136 H 118 H (75-99) mg/dL Calcium (8.4-10.2) mg/dL Ionized Calcium Guille (4.5-5.3) mg/dL Magnesium (1.6-2.3) mg/dL Total Protein (6.3-8.2) g/dL Albumin (3.5-5.0) g/dL Crossmatch 10/15/16 10/15/16 10/15/16 Range/Units 05:00 05:00 05:00 RBC 2.88 L (4.30-5.90) m/uL Hgb 8.7 L (13.0-17.5) gm/dL Hct 27.9 L (39.0-53.0) % RDW 18.4 H (11.5-15.5) % Lymphocytes # 0.8 L (1.0-4.8) k/uL PT 12.1 H (9.0-12.0) sec ABG pH (7.35-7.45) ABG pO2 (83-108) mmHg ABG HCO3 (21-25) mmol/L ABG Total CO2 (19-24) mmol/L Sodium 150 H (137-145) mmol/L Chloride 109 H (98-107) mmol/L Carbon Dioxide 34 H (22-30) mmol/L BUN 64 H (9-20) mg/dL Glucose 121 H (74-99) mg/dL POC Glucose (mg/dL) (75-99) mg/dL Calcium 7.6 L (8.4-10.2) mg/dL Ionized Calcium Guille 4.4 L (4.5-5.3) mg/dL Magnesium 2.9 H (1.6-2.3) mg/dL Total Protein 5.1 L (6.3-8.2) g/dL Albumin 2.3 L (3.5-5.0) g/dL Crossmatch 10/15/16 Range/Units 08:10 RBC (4.30-5.90) m/uL Hgb (13.0-17.5) gm/dL Hct (39.0-53.0) % RDW (11.5-15.5) % Lymphocytes # (1.0-4.8) k/uL PT (9.0-12.0) sec ABG pH (7.35-7.45) ABG pO2 (83-108) mmHg ABG HCO3 (21-25) mmol/L ABG Total CO2 (19-24) mmol/L Sodium (137-145) mmol/L Chloride (98-107) mmol/L Carbon Dioxide (22-30) mmol/L BUN (9-20) mg/dL Glucose (74-99) mg/dL POC Glucose (mg/dL) 153 H (75-99) mg/dL Calcium (8.4-10.2) mg/dL Ionized Calcium Guille (4.5-5.3) mg/dL Magnesium (1.6-2.3) mg/dL Total Protein (6.3-8.2) g/dL Albumin (3.5-5.0) g/dL Crossmatch Microbiology - Last 24 Hours (Table) 10/11/16 06:40 Blood Culture - Preliminary Blood No Growth after 72 hours Assessment and Plan (1) Acute pulmonary edema Status: Acute (2) Acute respiratory failure Status: Acute (3) Neutrophilic leukocytosis Status: Acute (4) Status post mitral valve repair Status: Acute (5) Atrial fibrillation with RVR Status: Acute (6) Congestive heart failure due to valvular disease Status: Acute (7) Hypercholesterolemia Status: Acute (8) Hypertension Status: Acute (9) Hypothyroidism (acquired) Status: Acute (10) Paroxysmal atrial fibrillation Status: Acute
[2016-10-21] MEDS: INSULIN LISPRO (humaLOG) 300 UNIT/3 ML VIAL SQ SCH ×4 (09:36→21:58)
[2016-10-21] MEDS: ASPIRIN 81 MG CHEW PO SCH (09:37)
[2016-10-21] MEDS: HEPARIN SODIUM,PORCINE 5,000 UNIT/ML 1 ML VIAL SQ SCH ×3 (09:37→23:45)
[2016-10-21] MEDS: PANTOPRAZOLE 40 MG/10 ML VIAL IVP SCH (09:38)
[2016-10-21] MEDS: METOPROLOL TARTRATE 25 MG TAB PO SCH ×2 (09:38→21:57)
--- NOTE | 2016-10-21 10:45 | CDI ---
In responding to this query, please exercise your independent professional judgment. The [facility] Coding Staff and Clinical Documentation Specialists appreciate your assistance in clarifying documentation, maintaining compliance with coding guidelines, accurately documenting patients condition and capturing severity of illness. The fact that a question is asked does not imply that any particular answer is desired or expected. Communication forms are a method of clarifying documentation and are not made part of the Legal Health Record. Thank you in advance for your clarification. Last Revision, August 2015 Janeth Perez [address] [facility] [facility] [place] [address] Documentation Clarification Form Date: 10/12/2016 9:55:00 AM From: Gerson Sawyer, RN, BSN, CDI Admit Date: 10/06/2016 11:17:00 AM Patient Name: Jn Stevenson Visit Number: [id number] Dr. Dayami Guadarrama: "CHF due to valvular disease" is documented in your progress notes. History/Risk Factors:71 yo male with recent history of aortic valve replacement and mitral valve repair. Additional medical history includes atrial fibrillation, rheumatic fever and moderate pulmonary hypertension. +hx smoking. Clinical Indicators: VS/Pulse OX: 153/96, 141, 24, 98.3 and 90% 4L (on admission) BNP: 6520 Echocardiogram Results: LVEF 50-55% (systolic function is low-normal), LA severely dilated, Afib, normally functioning bioprosthetic valve, mild mitral/ tricuspid regurgitation. Chest X Ray: findings c/w CHF exacerbation redemonstrated as there is cardiomegaly w/mild-mod central vascular congestion and small to moderate sized b/l pleural effusions Treatment: Lasix gtt, mechanical ventilation, Amio gtt, Lopressor, Digoxin Consults: cardiology In your professional opinion, can you please clarify the acuity and type of CHF if known? Acute Chronic Acute on Chronic AND Systolic Diastolic Systolic and Diastolic Cor Pulmonale (Right Sided HF w/ Pulmonary HTN) Unable to determine Other, please specify Please document in your progress notes and discharge summary in order to capture severity of illness and risk of mortality. Include clinical findings that support your diagnosis. FYI: Press F11 to launch patient chart. Place X here if this finding has no clinical significance, is not applicable or if you are not able to provide any additional documentation. MTDD
--- NOTE | 2016-10-21 11:03 | CDI ---
In responding to this query, please exercise your independent professional judgment. The [facility] Coding Staff and Clinical Documentation Specialists appreciate your assistance in clarifying documentation, maintaining compliance with coding guidelines, accurately documenting patients condition and capturing severity of illness. The fact that a question is asked does not imply that any particular answer is desired or expected. Communication forms are a method of clarifying documentation and are not made part of the Legal Health Record. Thank you in advance for your clarification. Last Revision, April 2015 Janeth Perez [address] [facility] [place] [address] Documentation Clarification Form Date: 10/19/2016 2:20:00 PM From: Gerson Sawyer, RN, BSN, CDI Admit Date: 10/06/2016 11:17:00 AM Patient Name: Jn Stevenson Visit Number: [id number] Dr. Jae Riggs: Per your operative note, a "debridement" was performed on 10/15/16. There was no further documentation as to the type of debridement(excisional or non- excisional) that was done. History/Risk Factors: 71 yo male with recent atrial valve replacement, mitral valve repair presents after EMS was called by for what appeared to be seizure like activity. Clinical Indicators: CT chest showed "sternal dehiscence". Per the operative report "there was a large amount of fibrinous material present along with some small amount of old clot. This was all debrided out from both this region of the sternum and from the mediastinum, cultures were sent of the fluid and of the tissue. Once we had debrided back all the tissue, having clearly identified no necrotic bone and no evidence of acute infection". In order to capture the severity of condition and code the appropriate procedure could you please document the following: Excisional debridement (the removal of necrotic, devitalized tissue or slough by means of cutting away of tissue) Non-excisional debridement (the removal of necrotic, devitalized tissue or slough by means of flushing, brushing, or washing. (Irrigation) Other; with explanation for clinical findings Unable to determine (no explanation for clinical findings) Please note: The additional elements required for accurate and compliant documentation of a debridement: 1. Technique used (e.g., excisional, excised, cutting, etc.) 2. Instrument(s) used (e.g., scalpel, curette, etc.) Please document in your progress notes and discharge summary in order to capture severity of illness and risk of mortality. Include clinical findings that support your diagnosis. FYI: Press F11 to launch patient chart. Place X here if this finding has no clinical significance, is not applicable or if you are not able to provide any additional documentation. CHIOD
--- NOTE | 2016-10-21 11:34 | XR ---
EXAMINATION TYPE: XR chest 1V portable DATE OF EXAM: 10/21/2016 11:25 AM COMPARISON: 10/20/2016 INDICATION: Previous abnormal chest x-rays, shortness of breath TECHNIQUE: Single frontal view of the chest is obtained. FINDINGS: The heart size is prominent. The pulmonary vasculature is normal. Bibasilar infiltrates are present. These are improving from comparison. Mild residual remains, greate st at the right base. Continued follow-up is recommended. Catheters remain present. Surgical skin yoli are in the midline. EKG leads overlie the chest. IMPRESSION: 1. Improving bibasilar infiltrates. Moderate residual remains at the right. Continued follow-up is re commended.
[2016-10-21] MEDS: DIGOXIN 125 MCG TAB PO SCH (11:52)
[2016-10-21 12:56] LABS: Glucose,Whole Blood 114 mg/dL (75-99)
--- NOTE | 2016-10-21 14:11 | P.PN ---
Subjective This is a 61-year-old male patient was undergone a cardiac surgery which involved aVR with mitral valve repair on 09/29/2016. The patient was discharged home on 10/04/2016. Following that the patient was readmitted to the hospital because of increased shortness of breath, acute respiratory failure , cough, syncope and sternal wound dehiscence. The patient was seen by cardiology thoracic surgery and he was taken back to the operating room where he underwent a closure of the sternal wound with a muscle flap on 10/15/2016. The patient was extubated off the mechanical ventilator on 10/16/2016. He initially had difficulties with swallowing yet he is currently doing better. He developed a right-sided pleural effusion he had an attempt for thoracentesis was done yesterday by Dr. Armando and this failed. Apparently there was no adequate fluid drainage during the procedure. As such the procedure was aborted. The patient has a left-sided chest tube in place which is draining approximately less than 100 mL over the past 24 hours and the plan is to take of the chest tube. He is actually taking well at 6 L/m nasal cannula. His is or 82. He is hemodynamically stable. He is pulling approximately 500 on the incentive spirometer. The patient has MEGHAN drains on his sternal wound a total of 3 and the drainage is not active at this point. The patient is hemodynamically stable on no pressors. His CODE STATUS is full at this point. On 10/19/2016 I'm seeing this patient in follow-up. He is doing well. He is sitting up on a bed and he is on 5 L of oxygen by nasal cannula. His chest x- ray still showing better pleural effusion worse on the right and the plan is to proceed with thoracentesis this morning. He is tolerating his diet. No nausea. No vomiting. No chest pain. Sternum stable clean and intact. No fever. No chills. White cell count is at 10.0 and hemoglobin is at 8.4 which is stable. The patient remains on IV Zosyn. I discussed the case with Dr. Ramos and we'll keep the Sporanox on hold for the time being due to concerns of drug interaction. The patient has had Haemophilus and Serratia in his sputum. The MEGHAN drains are still in place. MEGHAN drain #1 has put out 20 mL and # 2 has put out 80 mL of urine output is around 50 mL an hour. On 10/20/2016 I'm seeing this patient in follow-up. The patient has been weaned down to 4 L of oxygen by nasal cannula. He underwent a thoracentesis of the right lung yesterday and total of 1.6 L of pleural fluid was aspirated from the right lung. Patient is doing well. The patient is not having any major respiratory difficulties. The patient was able to breathe better following the procedure. No significant cough or sputum production. The patient has Haemophilus and consideration his sputum and the patient is still on IV Zosyn. MEGHAN drain is still in place. No chills. No fever. He is gradually increasing his oral intake. No other significant events over the past 24 hours. He is having episodes of paroxysmal atrial fibrillation and the patient is on no anti- coagulation at this point. This will be further discussed with cardiology. On 10/21/2016 the patient is being seen in follow-up. He is doing well. No specific complaints. His follow-up chest x-ray from today shows improving bibasilar pulmonary infiltrates with moderate amount of infiltration still on the right along with some residual pleural effusion. He was started on long- term anticoagulation. He is in atrial fibrillation. Is tolerating his diet. He is weak however his getting stronger and is able to sit up on a chair. MEGHAN drains are in place and the output in the 3 tubes are still active and they will be kept in place for the time being. Objective - Vital Signs Vital signs: Vital Signs Temp 98.4 F 10/21/16 12:00 Pulse 94 10/21/16 12:00 Resp 9 L 10/21/16 12:00 BP 84/52 10/21/16 12:00 Pulse Ox 94 L 10/21/16 12:00 Intake & Output 10/20/16 10/21/16 10/21/16 18:59 06:59 18:59 Intake Total 1110 600 20 Output Total 630 895 280 Balance 480 -295 -260 Weight 113 kg 113 kg Intake: IV 630 20 D5W @70 580 Piperacillin-Tazobactam 3 50 .375 gm In Dextrose/Water 1 50ml.bag @ 12.5 mls/hr IVPB Q8H STEVAN Rx#: [id number] Sodium Chloride 0.9% 1, 20 000 ml @ 20 mls/hr IV . Q24H STEVAN Rx#:[id number] Oral 480 600 Output: Drainage 150 280 70 Left Lateral Chest 10 60 15 Medial Chest 140 160 40 Right Lateral Chest 60 15 Urine 480 615 210 Other: Voiding Method Indwelling Catheter Indwelling Catheter # Bowel Movements 1 1 1 ABP, PAP, CO, CI - Last Documented Arterial Blood Pressure 104/50 - Exam Head exam was generally normal. There was no scleral icterus or corneal arcus. Mucous membranes were moist.Neck was supple and without jugular venous distension, thyromegaly, or carotid bruits. Carotids were easily palpable bilaterally. There was no adenopathy. Lung sounds are diminished in the lung base bilaterally especially in the right lung base. The patient has weak and poor respiratory efforts. Patient had a left-sided chest tube in place. Heart sounds are regular, positive S1-S2 and there is no significant murmurs appreciated. Sternum was stable clean and intact and the patient's sternal wound is covered with a Aquacel silver dressing. MEGHAN drains were visualized. No active drainage from the wounds.Abdominal exam revealed normal bowel sounds. The abdomen was soft, non-tender, and without masses, organomegaly, or appreciable enlargement of the abdominal aorta.Examination of the extremities revealed easily palpable radial, femoral and pedal pulses. There was no cyanosis , clubbing or edema. - Labs CBC & Chem 7: 10/21/16 05:15 10/21/16 05:15 Labs: Abnormal Lab Results - Last 24 Hours (Table) 10/20/16 10/20/16 10/21/16 Range/Units 15:47 22:16 05:15 RBC (4.30-5.90) m/uL Hgb (13.0-17.5) gm/dL Hct (39.0-53.0) % MCHC (31.0-37.0) g/dL RDW (11.5-15.5) % Lymphocytes # (1.0-4.8) k/uL PT 19.7 H (9.0-12.0) sec Potassium 3.4 L (3.5-5.1) mmol/L Chloride (98-107) mmol/L BUN (9-20) mg/dL POC Glucose (mg/dL) 106 H (75-99) mg/dL Calcium (8.4-10.2) mg/dL Magnesium (1.6-2.3) mg/dL TSH (0.465-4.680) mIU/L 10/21/16 10/21/16 10/21/16 Range/Units 05:15 05:15 05:15 RBC 2.84 L (4.30-5.90) m/uL Hgb 8.3 L (13.0-17.5) gm/dL Hct 27.9 L (39.0-53.0) % MCHC 29.7 L (31.0-37.0) g/dL RDW 17.9 H (11.5-15.5) % Lymphocytes # 0.7 L (1.0-4.8) k/uL PT (9.0-12.0) sec Potassium (3.5-5.1) mmol/L Chloride 108 H (98-107) mmol/L BUN 27 H (9-20) mg/dL POC Glucose (mg/dL) (75-99) mg/dL Calcium 7.2 L (8.4-10.2) mg/dL Magnesium 2.6 H (1.6-2.3) mg/dL TSH 49.300 H (0.465-4.680) mIU/L 10/21/16 10/21/16 Range/Units 08:05 12:53 RBC (4.30-5.90) m/uL Hgb (13.0-17.5) gm/dL Hct (39.0-53.0) % MCHC (31.0-37.0) g/dL RDW (11.5-15.5) % Lymphocytes # (1.0-4.8) k/uL PT (9.0-12.0) sec Potassium (3.5-5.1) mmol/L Chloride (98-107) mmol/L BUN (9-20) mg/dL POC Glucose (mg/dL) 100 H 114 H (75-99) mg/dL Calcium (8.4-10.2) mg/dL Magnesium (1.6-2.3) mg/dL TSH (0.465-4.680) mIU/L Assessment and Plan Plan: Assessment 1 status post aortic valve replacement and mitral valve repair and the patient is postop day #22 2 sternal wound dehiscence, post muscle flap, postop day #6 3 post extubation and the patient was weaned off the mechanical ventilator on 4 bilateral pleural effusion, status post thoracentesis of the right lung and evacuation of 1.6 L of pleural fluid 5 left-sided chest tube with diminished output, and the chest tube was removed yesterday 6 paroxysmal fibrillation, paroxysmal currently in sinus rhythm, on anticoagulants 7 hypertension 8 hyperlipidemia 9 thyroid cancer with a previous thyroidectomy 10 osteoarthritis 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 The patient was seen by Dr. Ramos. Recommendations were treating this patient with itraconazole 100 mg by mouth twice a day. 12 Serratia marcescens and Haemophilus influenza in the sputum, currently on IV Zosyn 13 hypernatremia, improved Plan Monitor the output from the MEGHAN drains. It x-ray is showing some improvement in the volume status and infiltration in lung bases bilaterally. Continue anticoagulation. Monitor PT/INR. Use incentive spirometer. Thyroid function tests were noted and the patient will be kept on levothyroxine as he may have an underlying sick euthyroid. We'll may ultimately move this patient out of the intensive care unit today.
--- NOTE | 2016-10-21 15:19 | P.PN ---
Subjective Principal diagnosis: Status post open-heart surgery, respiratory failure, atrial fibrillation and CHF and sternal dehiscence, pleural effusion Patient is a status post repair of the mitral valve and also aortic valve replacement. Patient seemed to be doing better. His remained extubated. He seemed to be much more alert. He passed a swallow evaluation and the diet is being advanced. His maintaining sinus rhythm. We will continue current medical therapy and increase activity as tolerated. Patient is reevaluated in . Patient had thoracocentesis and 1.6 L of fluid was taken out. Patient is sitting up and seemed to be relatively comfortable. Patient is to have some difficulty swallowing. He is getting bedside physical therapy and patient went back into atrial fibrillation. Patient is going to be started on Coumadin today. Increase activity as tolerated and Patient is reevaluated on . Patient remains extubated. Patient seemed to be tolerating in the heating better. Seemed to be more alert. Doesn't appear to be in any distress. A chest x-ray showed a car or megaly and bilateral effusions and some infiltrates. Left-sided chest tube is been removed. Patient is in atrial fibrillation with controlled ventricular response. His INR today is 1.5. He was given 1 mg of Coumadin. Overall this seemed to be some improvement we will continue the current management and increase activity as tolerated. Patient seemed to be feeling of getting better. He is eating better. It seems that has more strength. Is in atrial fibrillation with controlled ventricular response. Is on anticoagulation and the current dose of the Coumadin is being adjusted by and the cardiac surgeon. It is possible that patient may be transferred to telemetry unit. Increase activity as tolerated. Plan is to send him to have rehab center. Objective - Vital Signs Vital signs: Vital Signs Temp 98.4 F 10/21/16 12:00 Pulse 80 10/21/16 15:00 Resp 21 10/21/16 15:00 BP 92/56 10/21/16 15:00 Pulse Ox 94 L 10/21/16 15:00 Intake & Output 10/20/16 10/21/16 10/21/16 18:59 06:59 18:59 Intake Total 1110 600 20 Output Total 630 895 445 Balance 451 -188 -896 Weight 113 kg 113 kg Intake: IV 630 20 D5W @70 580 Piperacillin-Tazobactam 3 50 .375 gm In Dextrose/Water 1 50ml.bag @ 12.5 mls/hr IVPB Q8H STEVAN Rx#: [id number] Sodium Chloride 0.9% 1, 20 000 ml @ 20 mls/hr IV . Q24H STEVAN Rx#:[id number] Oral 480 600 Output: Drainage 150 280 85 Left Lateral Chest 10 60 30 Medial Chest 140 160 40 Right Lateral Chest 60 15 Urine 480 615 360 Other: Voiding Method Indwelling Catheter Indwelling Catheter # Bowel Movements 1 1 1 ABP, PAP, CO, CI - Last Documented Arterial Blood Pressure 104/50 - Exam GENERAL EXAM: Patient is extubated. He is alert, awake. He is still weak and frail HEENT: Normocephalic. Normal reaction of pupils, equal size, normal range of extraocular motion. No erythema or exudates in the throat. NECK: No masses, no nuchal rigidity. CHEST: No chest wall deformity. LUNGS: [Diminished breath sounds, scattered rhonchi HEART: Irregular heart rhythm ABDOMEN: No hepatosplenomegaly, normal bowel sounds, no guarding or rigidity. SKIN: No rashes CENTRAL NERVOUS SYSTEM: Sedated EXTREMITIES: No cyanosis, clubbing or edema. - Labs CBC & Chem 7: 10/21/16 05:15 10/21/16 05:15 Labs: Abnormal Lab Results - Last 24 Hours (Table) 10/20/16 10/20/16 10/21/16 Range/Units 15:47 22:16 05:15 RBC (4.30-5.90) m/uL Hgb (13.0-17.5) gm/dL Hct (39.0-53.0) % MCHC (31.0-37.0) g/dL RDW (11.5-15.5) % Lymphocytes # (1.0-4.8) k/uL PT 19.7 H (9.0-12.0) sec Potassium 3.4 L (3.5-5.1) mmol/L Chloride (98-107) mmol/L BUN (9-20) mg/dL POC Glucose (mg/dL) 106 H (75-99) mg/dL Calcium (8.4-10.2) mg/dL Magnesium (1.6-2.3) mg/dL TSH (0.465-4.680) mIU/L 10/21/16 10/21/16 10/21/16 Range/Units 05:15 05:15 05:15 RBC 2.84 L (4.30-5.90) m/uL Hgb 8.3 L (13.0-17.5) gm/dL Hct 27.9 L (39.0-53.0) % MCHC 29.7 L (31.0-37.0) g/dL RDW 17.9 H (11.5-15.5) % Lymphocytes # 0.7 L (1.0-4.8) k/uL PT (9.0-12.0) sec Potassium (3.5-5.1) mmol/L Chloride 108 H (98-107) mmol/L BUN 27 H (9-20) mg/dL POC Glucose (mg/dL) (75-99) mg/dL Calcium 7.2 L (8.4-10.2) mg/dL Magnesium 2.6 H (1.6-2.3) mg/dL TSH 49.300 H (0.465-4.680) mIU/L 10/21/16 10/21/16 Range/Units 08:05 12:53 RBC (4.30-5.90) m/uL Hgb (13.0-17.5) gm/dL Hct (39.0-53.0) % MCHC (31.0-37.0) g/dL RDW (11.5-15.5) % Lymphocytes # (1.0-4.8) k/uL PT (9.0-12.0) sec Potassium (3.5-5.1) mmol/L Chloride (98-107) mmol/L BUN (9-20) mg/dL POC Glucose (mg/dL) 100 H 114 H (75-99) mg/dL Calcium (8.4-10.2) mg/dL Magnesium (1.6-2.3) mg/dL TSH (0.465-4.680) mIU/L Assessment and Plan (1) Acute renal failure Status: Acute (2) Acute respiratory failure Status: Acute (3) Status post aortic valve replacement Status: Acute (4) Status post mitral valve repair Status: Acute (5) Atrial fibrillation with RVR Status: Acute (6) Congestive heart failure due to valvular disease Status: Acute Plan: Patient is in atrial fibrillation with controlled ventricular response. He generally seems to be feeling better. Eating better. Respirator status also is improved. Possible transfer to telemetry unit. Increase activity as tolerated.
--- NOTE | 2016-10-21 16:47 | P.PN ---
<Orion Quiroz Lewis - Last Filed: 10/21/16 16:46> Progress Note - Text CV Surgery Nursing Principal diagnosis: Acute hypoxic respiratory failure requiring mechanical ventilation, present on admission. Sputum culture positive for Haemophilus influenza, serratia marcescens. Currently on Zosyn, vancomycin. Infectious disease following. CAT scan of the chest on 10/09/16 demonstrated dehiscence of sternal wires, an unexpected postsurgical condition related to the patient's underlying comorbidities. Left pleural effusion. POD #24 aortic valve replacement, mitral valve repair, modified Frederick maze, mediastinal lymph node biopsy. POD #6 sternal exploration due to sternal debridement and wound closure with bilateral pectoralis major myocutaneous advancement flaps. POD #6 placement of left chest tube for left pleural effusion. Status post day #2 right thoracentesis for right pleural effusion with drainage of 1.5 L of dark red-tinged thin drainage. Patient awake and alert, no distress noted, is complaining of generalized weakness although he is speaking much better today. Denies complaints of pain. Vital Signs: Afebrile Vital Signs - 24 hr 10/20/16 10/20/16 10/20/16 12:00 12:20 12:33 Temperature 97.8 F Pulse Rate 78 72 77 Respiratory 29 H Rate Blood Pressure 97/64 O2 Sat by Pulse 97 Oximetry 10/20/16 10/20/16 10/20/16 13:00 14:00 15:00 Temperature Pulse Rate 75 84 83 Respiratory 15 21 19 Rate Blood Pressure 81/56 81/56 98/61 O2 Sat by Pulse 96 97 91 L Oximetry 10/20/16 10/20/16 10/20/16 16:00 17:00 17:18 Temperature 97.8 F Pulse Rate 73 85 83 Respiratory 21 19 Rate Blood Pressure 90/58 85/66 O2 Sat by Pulse 95 96 Oximetry 10/20/16 10/20/16 10/20/16 17:31 17:43 18:00 Temperature Pulse Rate 94 92 Respiratory 22 Rate Blood Pressure 99/67 O2 Sat by Pulse 92 L 92 L Oximetry 10/20/16 10/20/16 10/20/16 19:00 20:00 20:36 Temperature 98 F Pulse Rate 95 79 Respiratory 15 8 L Rate Blood Pressure 87/47 86/51 O2 Sat by Pulse 94 L 95 Oximetry 10/20/16 10/20/1617 20:52 21:00 22:00 Temperature Pulse Rate 85 88 94 Respiratory 20 20 Rate Blood Pressure 102/64 83/57 O2 Sat by Pulse 95 95 Oximetry 10/20/16 10/20/16 10/21/16 22:40 23:00 00:00 Temperature 98.3 F Pulse Rate 84 81 80 Respiratory 19 14 8 L Rate Blood Pressure 104/56 85/51 87/54 O2 Sat by Pulse 94 L 95 95 Oximetry 10/21/16 10/21/16 10/21/16 01:00 02:00 03:00 Temperature Pulse Rate 72 74 83 Respiratory 17 14 14 Rate Blood Pressure 88/47 99/53 86/53 O2 Sat by Pulse 94 L 97 96 Oximetry 10/21/16 10/21/16 10/21/16 03:41 04:00 05:00 Temperature 98.3 F Pulse Rate 78 71 Respiratory 8 L 16 15 Rate Blood Pressure 94/58 82/57 O2 Sat by Pulse 95 94 L Oximetry 10/21/16 10/21/16 10/21/16 06:00 07:00 08:00 Temperature 98.2 F Pulse Rate 83 91 79 Respiratory 14 14 14 Rate Blood Pressure 91/50 90/53 84/57 O2 Sat by Pulse 96 96 98 Oximetry 10/21/16 10/21/16 10/21/16 08:25 08:41 08:42 Temperature Pulse Rate 76 78 Respiratory Rate Blood Pressure O2 Sat by Pulse 93 L Oximetry 10/21/16 10/21/16 10/21/16 09:00 10:00 11:00 Temperature Pulse Rate 80 108 H 74 Respiratory 22 27 H 20 Rate Blood Pressure 93/59 99/55 99/62 O2 Sat by Pulse 94 L 89 L 96 Oximetry 10/21/16 11:32 Temperature Pulse Rate 80 Respiratory Rate Blood Pressure O2 Sat by Pulse Oximetry Labs: Short CBC 10/21/16 Range/Units 05:15 WBC 8.7 (3.8-10.6) k/uL Hgb 8.3 L (13.0-17.5) gm/dL Hct 27.9 L (39.0-53.0) % Plt Count 182 (150-450) k/uL Neutrophils # 7.0 (1.3-7.7) k/uL BMP 10/20/16 10/21/16 15:47 05:15 Sodium 140 Potassium 3.4 L 4.1 Chloride 108 H Carbon Dioxide 27 BUN 27 H Creatinine 1.07 Glucose 93 Calcium 7.2 L ABG ABG pH 7.46 (7.35-7.45) H 10/16/16 04:45 ABG pCO2 41 mmHg (35-45) 10/16/16 04:45 ABG pO2 101 mmHg (83-108) 10/16/16 04:45 ABG O2 Saturation 98.0 % (94-97) H 10/16/16 04:45 PT/INR, D-dimer PT 19.7 sec (9.0-12.0) H 10/21/16 05:15 INR 2.0 (<1.1) 10/21/16 05:15 D-Dimer 6.31 mg/L FEU (<0.60) H 10/06/16 21:00 Coumadin 5 mg by mouth 1 given on 10/19/2016. Coumadin 1 mg by mouth 1 given on 10/20/2016. Microbiology 10/15/16 14:40 Chest Anaerobic Culture - Final 10/15/16 14:40 Chest Anaerobic Culture - Final 10/15/16 14:40 Chest Anaerobic Culture - Final 10/15/16 14:40 Chest Gram Stain - Final 10/15/16 14:40 Chest Tissue Culture - Final 10/15/16 14:40 Chest Gram Stain - Final 10/15/16 14:40 Chest Wound Culture - Final 10/15/16 14:40 Chest Gram Stain - Final 10/15/16 14:40 Chest Wound Culture - Final 10/11/16 06:40 Blood Blood Culture - Final No Growth after 144 hours 10/11/16 11:47 Catheter Tip Catheter Tip Culture - Final 10/06/16 10:00 Blood Blood Culture - Final No Growth after 144 hours 10/06/16 21:00 Sputum Gram Stain - Final 10/06/16 21:00 Sputum Sputum Culture - Final Haemophilus influenzae Serratia marcescens Lungs: Essentially clear throughout, diminished bilateral bases right greater than left. Respirations are symmetrical and unlabored. O2 sat: 97% on 3 L nasal cannula. I/S: 500-750 mL, reviewed with the patient the importance of using his incentive spirometry every hour while awake. The patient did give a good return demonstration on the incentive spirometry although he will need assistance with a due to upper extremity weakness. Heart: S1S2, irregular rhythm with controlled rate, negative for S3, gallop or murmur. Bedside telemetry showing atrial fibrillation heart rate 79. Chest incision clean with dressing clean and dry. MEGHAN drains in place draining serosanguineous drainage. Right chest MEGHAN drain with 30 mL output in the last 8 hours, 45 mL output in the last 24 hours. The mid chest MEGHAN drain draining serosanguineous drainage. 80 mL output in the last 8 hours, 260 mL output in the last 24 hours. Left chest MEGHAN drain draining thin serosanguineous drainage. 30 mL output in the last 8 hours, 100 mL output in the last [address] in place, reminded patient on use of her heart hugger. Knee-high ORLIN hose and sequential compression devices in place to bilateral lower extremities. Abdomen: Soft, Positive bowel sounds present in all 4 quadrants, positive bowel movement. CBGs: 98-109 mg/dL last 24 hours. U/O: Adequate, Duong catheter for accurate I&O. 410 mL output in the last 8 hours. 24 hr Total: Intake & Output 10/19/16 10/20/16 10/21/16 10/22/16 06:59 06:59 06:59 06:59 Intake Total 1832 1230 1710 20 Output Total 2028 3650 1525 280 Balance -197 -2420 185 -260 Weight 113.3 kg 112.7 kg 113 kg 113 kg Active Medications Albuterol/Ipratropium (Duoneb 0.5 Mg-3 Mg/3 Ml Soln) 3 ml INHALATION RT-QID [facility] Last Admin: 10/21/16 11:30 Dose: 3 ml Amiodarone HCl (Cordarone) 200 mg PO BID@0600,1800 [facility] Last Admin: 10/21/16 05:28 Dose: 200 mg Aspirin (Aspirin) 81 mg PO DAILY [facility] Last Admin: 10/21/16 09:37 Dose: 81 mg Digoxin (Lanoxin) 125 mcg PO DAILY [facility] Last Admin: 10/20/16 09:02 Dose: 125 mcg Heparin Sodium (Porcine) (Heparin) 5,000 unit SQ Q8HR [facility] Last Admin: 10/21/16 09:37 Dose: 5,000 unit Ibuprofen (Motrin Oral Susp Cup) 600 mg PO Q6H PRN PRN Reason: Fever and/or Mild Pain Last Admin: 10/11/16 02:21 Dose: 600 mg Insulin Human Lispro (Humalog) 0 unit SQ ACHS [facility] PRN Reason: Protocol Last Admin: 10/21/16 09:36 Dose: Not Given Levothyroxine Sodium (Synthroid) 150 mcg PO DAILY@0630 [facility] Last Admin: 10/21/16 05:28 Dose: 150 mcg Metoprolol Tartrate (Lopressor) 25 mg PO BID [facility] Last Admin: 10/21/16 09:38 Dose: 25 mg Miscellaneous Information (Magnesium Per Protocol) 1 each MISCELLANE DAILY PRN ; Protocol PRN Reason: Per Protocol Miscellaneous Information (Phosphorus Per Protocol) 1 each MISCELLANE DAILY PRN ; Protocol PRN Reason: Per Protocol Miscellaneous Information (Potassium Per Protocol) 1 each MISCELLANE DAILY PRN ; Protocol PRN Reason: Per Protocol Miscellaneous Information (Potassium Per Protocol) 1 each MISCELLANE DAILY PRN ; Protocol PRN Reason: Per Protocol Pantoprazole Sodium (Protonix) 40 mg IVP DAILY [facility] Last Admin: 10/21/16 09:38 Dose: 40 mg Sodium Chloride (Saline Flush) 20 ml IV Q4HR PRN PRN Reason: PICC Line Sodium Chloride (Saline Flush) 10 ml IV WEEKLY [facility] Last Admin: 10/18/16 08:29 Dose: Not Given Plan: 1. Continue aspirin, metoprolol, digoxin, heparin sc. 2. Continue amiodarone 200 mg PO BID, for A. fib prophylaxis. Cardiology managing. 3. Zosyn discontinued per infectious disease. Dr. Ramos is following. 4. Pulmonary management per Dr. Albert recommendations. Right-sided thoracentesis completed 10/19/[address] Albert with 1.5 L of blood-tinged fluid drained. 5. Daily labs, x-rays. TSH 49.300, Free T4 1.05. Continue Synthroid dose is ordered. 6. Diabetic management per internal medicine service. 7. MEGHAN drains will remain in place. We will continue to monitor drainage. 8. Strict I/O, daily weights. 9. Coumdain 1 mg po today, daily pt/inr. 10. More recommendations as patient progresses. <Brant Crawford - Last Filed: 10/21/16 16:58> Progress Note - Text The patient was seen and examined. Agree with the above assessment and plan. Overall he appears to be improving. He is a normal sinus rhythm this afternoon. He is currently on Coumadin with the last INR of 2.0. He is making good urine and his creatinine has normalized. Chest x-ray was reviewed. He may be developing a recurrent right pleural effusion. He'll be transferred to [facility] when a bed is available.
[2016-10-21 17:19] LABS: Glucose,Whole Blood 113 mg/dL (75-99)
[2016-10-21] MEDS ORDERED: WARFARIN 1 MG TAB PO ONE (18:00)
[2016-10-21 21:00] LABS: Glucose,Whole Blood 132 mg/dL (75-99)
--- NOTE | 2016-10-21 23:09 | P.PN ---
Subjective Principal diagnosis: Respiratory failure This is a 71-year-old male who came in the hospital on September 23 and underwent a JAYDE and heart catheterization showing a ruptured chordae tendonae, mitral regurgitation, moderate pulmonary hypertension, with history of paroxysmal atrial fibrillation and heart failure. 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 With this the patient was initiated to itraconazole. He however developed atrial fibrillation. Because of this he was initiated to amiodarone. The dose of itraconazole was reduced by 50%. There is no evidence of any ulcerations of the QT interval while he was in hospital. He eventually was discharged home. It is related that he was not able to obtain the itraconazole. In this is going to be addressed in the coming days. However the brought him to the emergency room feeling very short of breath. He was having abdominal distention with increasing shortness of breath. Through his stay in emergency center he continues to feel more more short of breath. He then developed respiratory failure which required intubation sedation mechanical ventilation. Over the following days he is improved was extubated in his continue to improve. His extensive edema has improved. Especially the massive abdominal edema that he was having. Extremity edema is also improved. He is awake and interactive voices improving further today Nursing staff relates he's eating considerably better with assistance. He did laugh and joke. Objective - Vital Signs Vital signs: Vital Signs Temp 97.9 F 10/21/16 20:00 Pulse 83 10/21/16 22:00 Resp 18 10/21/16 22:00 BP 103/58 10/21/16 22:00 Pulse Ox 95 10/21/16 22:00 Intake & Output 10/21/16 10/21/16 10/22/16 06:59 18:59 06:59 Intake Total 600 20 252 Output Total 895 600 210 Balance -295 -580 42 Weight 113 kg 113 kg Intake: IV 20 30 0.9 30 Sodium Chloride 0.9% 1, 20 000 ml @ 20 mls/hr IV . Q24H STEVAN Rx#:[id number] Oral 600 222 Output: Drainage 280 100 120 Left Lateral Chest 60 45 25 Medial Chest 160 40 75 Right Lateral Chest 60 15 20 Urine 615 500 90 Other: Voiding Method Indwelling Catheter Indwelling Catheter Indwelling Catheter # Bowel Movements 1 1 ABP, PAP, CO, CI - Last Documented Arterial Blood Pressure 104/50 - Exam This is a 71-year-old male. comfortable HEENT: Head is atraumatic, normocephalic. Pupils equal, round. Sclerae is anicteric. Conjunctiva slightly pale. Mucous membranes of the mouth are moist. No thrush noted. NECK: Supple. No JVD. No lymphadenopathy. No thyromegaly. LUNGS: There is symmetrical air entry. There are bibasal crackles. No significant bronchial sounds. HEART: Irregular with no no murmur Dressing on sternal wound with no breakthrough bleeding or drainage. Right sided pleural chest tube in place. ABDOMEN: Distinctly distended. Few bowel sounds are noted. Organomegaly is not detected. EXTREMITIES: +1 bilateral pedal edema. No calf tenderness. ORLIN hose in place. NEUROLOGICAL: Awake and interactive hand document design specialist is much stronger today. Voice is stronger. Mentation is clear. Skin :patient has an extensive dressing to the chest where there was difficulty with the dehiscence. - Labs CBC & Chem 7: 10/21/16 05:15 10/21/16 05:15 Labs: Abnormal Lab Results - Last 24 Hours (Table) 10/21/16 10/21/16 10/21/16 Range/Units 05:15 05:15 05:15 RBC 2.84 L (4.30-5.90) m/uL Hgb 8.3 L (13.0-17.5) gm/dL Hct 27.9 L (39.0-53.0) % MCHC 29.7 L (31.0-37.0) g/dL RDW 17.9 H (11.5-15.5) % Lymphocytes # 0.7 L (1.0-4.8) k/uL PT 19.7 H (9.0-12.0) sec Chloride (98-107) mmol/L BUN (9-20) mg/dL POC Glucose (mg/dL) (75-99) mg/dL Calcium (8.4-10.2) mg/dL Magnesium (1.6-2.3) mg/dL TSH 49.300 H (0.465-4.680) mIU/L 10/21/16 10/21/16 10/21/16 Range/Units 05:15 08:05 12:53 RBC (4.30-5.90) m/uL Hgb (13.0-17.5) gm/dL Hct (39.0-53.0) % MCHC (31.0-37.0) g/dL RDW (11.5-15.5) % Lymphocytes # (1.0-4.8) k/uL PT (9.0-12.0) sec Chloride 108 H (98-107) mmol/L BUN 27 H (9-20) mg/dL POC Glucose (mg/dL) 100 H 114 H (75-99) mg/dL Calcium 7.2 L (8.4-10.2) mg/dL Magnesium 2.6 H (1.6-2.3) mg/dL TSH (0.465-4.680) mIU/L 10/21/16 10/21/16 Range/Units 17:16 20:58 RBC (4.30-5.90) m/uL Hgb (13.0-17.5) gm/dL Hct (39.0-53.0) % MCHC (31.0-37.0) g/dL RDW (11.5-15.5) % Lymphocytes # (1.0-4.8) k/uL PT (9.0-12.0) sec Chloride (98-107) mmol/L BUN (9-20) mg/dL POC Glucose (mg/dL) 113 H 132 H (75-99) mg/dL Calcium (8.4-10.2) mg/dL Magnesium (1.6-2.3) mg/dL TSH (0.465-4.680) mIU/L Laboratory Results WBC 8.7 k/uL (3.8-10.6) 10/21/16 05:15 RBC 2.84 m/uL (4.30-5.90) L 10/21/16 05:15 Hgb 8.3 gm/dL (13.0-17.5) L 10/21/16 05:15 Hct 27.9 % (39.0-53.0) L 10/21/16 05:15 MCV 98.2 fL (80.0-100.0) 10/21/16 05:15 MCH 29.2 pg (25.0-35.0) 10/21/16 05:15 MCHC 29.7 g/dL (31.0-37.0) L 10/21/16 05:15 RDW 17.9 % (11.5-15.5) H 10/21/16 05:15 Plt Count 182 k/uL (150-450) 10/21/16 05:15 Neutrophils % 80 % 10/21/16 05:15 Neutrophils % (Manual) 85.5 % 10/08/16 04:20 Band Neutrophils % 0.5 % 10/08/16 04:20 Lymphocytes % 8 % 10/21/16 05:15 Lymphocytes % (Manual) 5.5 % 10/08/16 04:20 Monocytes % 3 % 10/21/16 05:15 Monocytes % (Manual) 4.0 % 10/08/16 04:20 Eosinophils % 8 % 10/21/16 05:15 Eosinophils % (Manual) 3.0 % 10/08/16 04:20 Basophils % 0 % 10/21/16 05:15 Metamyelocytes % 1.0 % 10/08/16 04:20 Myelocytes % 0.5 % 10/08/16 04:20 Neutrophils # 7.0 k/uL (1.3-7.7) 10/21/16 05:15 Neutrophils # (Manual) 16.2 k/uL (1.3-7.7) H 10/08/16 04:20 Lymphocytes # 0.7 k/uL (1.0-4.8) L 10/21/16 05:15 Lymphocytes # (Manual) 1.0 k/uL (1.0-4.8) 10/08/16 04:20 Monocytes # 0.3 k/uL (0-1.0) 10/21/16 05:15 Monocytes # (Manual) 0.8 k/uL (0-1.0) 10/08/16 04:20 Eosinophils # 0.7 k/uL (0-0.7) 10/21/16 05:15 Eosinophils # (Manual) 0.6 k/uL (0-0.7) 10/08/16 04:20 Basophils # 0.0 k/uL (0-0.2) 10/21/16 05:15 Nucleated RBCs 0 /100 WBC (0-0) 10/08/16 04:20 Manual Slide Review Performed 10/08/16 04:20 Large Platelets Present 10/06/16 21:00 Polychromasia Present 10/08/16 04:20 Hypochromasia Marked 10/21/16 05:15 Poikilocytosis Slight 10/21/16 05:15 Poikilocytosis (manual Present 10/08/16 04:20 Anisocytosis Slight 10/21/16 05:15 Macrocytosis Slight 10/21/16 05:15 Ovalocytes Present 10/06/16 21:00 PT 19.7 sec (9.0-12.0) H 10/21/16 05:15 INR 2.0 (<1.1) 10/21/16 05:15 APTT 47.0 sec (22.0-30.0) H 10/14/16 06:30 D-Dimer 6.31 mg/L FEU (<0.60) H 10/06/16 21:00 Sample Site benedict 10/16/16 04:45 ABG pH 7.46 (7.35-7.45) H 10/16/16 04:45 ABG pCO2 41 mmHg (35-45) 10/16/16 04:45 ABG pO2 101 mmHg (83-108) 10/16/16 04:45 ABG HCO3 29 mmol/L (21-25) H 10/16/16 04:45 ABG Total CO2 30 mmol/L (19-24) H 10/16/16 04:45 ABG O2 Saturation 98.0 % (94-97) H 10/16/16 04:45 ABG Base Excess 5.3 mmol/L 10/16/16 04:45 FiO2 50 % 10/16/16 04:45 Sodium 140 mmol/L (137-145) 10/21/16 05:15 Potassium 4.1 mmol/L (3.5-5.1) 10/21/16 05:15 Chloride 108 mmol/L (98-107) H 10/21/16 05:15 Carbon Dioxide 27 mmol/L (22-30) 10/21/16 05:15 Anion Gap 5 mmol/L 10/21/16 05:15 BUN 27 mg/dL (9-20) H 10/21/16 05:15 Creatinine 1.07 mg/dL (0.66-1.25) 10/21/16 05:15 Est GFR (MDRD) Af Amer >60 (>60 ml/min/1.73 sqM) 10/21/16 05:15 Est GFR (MDRD) Non-Af >60 (>60 ml/min/1.73 sqM) 10/21/16 05:15 Glucose 93 mg/dL (74-99) 10/21/16 05:15 POC Glucose (mg/dL) 132 mg/dL (75-99) H 10/21/16 20:58 POC Glu Nurse Manager Delia Chandler 10/21/16 20:[address] Glu mg/dL 120 mg/dL 10/07/16 05:18 Hemoglobin A1c 5.8 % (4.2-6.1) 10/07/16 05:18 Plasma Lactic Acid Samir 1.0 mmol/L (0.7-2.0) 10/07/16 05:18 Calcium 7.2 mg/dL (8.4-10.2) L 10/21/16 05:15 Ionized Calcium Guille 4.4 mg/dL (4.5-5.3) L 10/15/16 05:00 Phosphorus 3.5 mg/dL (2.5-4.5) 10/21/16 05:15 Magnesium 2.6 mg/dL (1.6-2.3) H 10/21/16 05:15 Total Bilirubin 0.9 mg/dL (0.2-1.3) 10/18/16 05:00 AST 27 U/L (17-59) 10/18/16 05:00 ALT 38 U/L (21-72) 10/18/16 05:00 Alkaline Phosphatase 62 U/L (38-126) 10/18/16 05:00 Total Creatine Kinase 736 U/L (55-170) H 10/06/16 09:50 CK-MB (CK-2) 7.2 ng/mL (0.0-2.4) H* 10/06/16 09:50 CK-MB (CK-2) Rel Index 1.0 10/06/16 09:50 Troponin I 1.510 ng/mL (0.000-0.034) H* 10/06/16 09:50 NT-Pro-B Natriuret Pep 6520 pg/mL 10/06/16 09:50 Total Protein 5.2 g/dL (6.3-8.2) L 10/18/16 05:00 Albumin 2.4 g/dL (3.5-5.0) L 10/18/16 05:00 TSH 49.300 mIU/L (0.465-4.680) H 10/21/16 05:15 Free T4 1.05 ng/dL (0.78-2.19) 10/21/16 05:15 Urine Color Dark Yellow 10/06/16 18:30 Urine Appearance Cloudy (Clear) 10/06/16 18:30 Urine pH 5.0 (5.0-8.0) 10/06/16 18:30 Ur Specific [place] 1.018 (1.001-1.035) 10/06/16 18:30 Urine Protein Trace (Negative) H 10/06/16 18:30 Urine Glucose (UA) Negative (Negative) 10/06/16 18:30 Urine Ketones Negative (Negative) 10/06/16 18:30 Urine Blood Negative (Negative) 10/06/16 18:30 Urine Nitrite Negative (Negative) 10/06/16 18:30 Urine Bilirubin 1+ (Negative) H 10/06/16 18:30 Urine Urobilinogen 4.0 mg/dL (<2.0) 10/06/16 18:30 Ur Leukocyte Esterase Negative (Negative) 10/06/16 18:30 Urine WBC 10 /hpf (0-5) H 10/06/16 18:30 Ur Squamous Epith Cells 2 /hpf (0-4) 10/06/16 18:30 Calcium Oxalate Crystal Occasional /hpf (None) H 10/06/16 18:30 Amorphous Sediment Occasional /hpf (None) H 10/06/16 18:30 Hyaline Casts 79 /lpf (0-2) H 10/06/16 18:30 Urine Mucus Rare /hpf (None) H 10/06/16 18:30 Vancomycin Trough 15.0 ug/mL 10/17/16 04:10 Digoxin 0.9 ng/mL 10/17/16 20:36 Blood Type O Positive 10/14/16 13:52 Blood Type Recheck No 10/14/16 13:52 Antibody Screen NEGATIVE 10/14/16 13:52 Crossmatch See Detail 10/14/16 13:52 Transfuse Platelets 4/21/17 04/20/17 13:52 Spec Expiration Date 10/17/2016 - 235110/14/16 13:52 Microbiology 10/15/16 14:40 Chest Anaerobic Culture - Final 10/15/16 14:40 Chest Anaerobic Culture - Final 10/15/16 14:40 Chest Anaerobic Culture - Final 10/15/16 14:40 Chest Gram Stain - Final 10/15/16 14:40 Chest Tissue Culture - Final 10/15/16 14:40 Chest Gram Stain - Final 10/15/16 14:40 Chest Wound Culture - Final 10/15/16 14:40 Chest Gram Stain - Final 10/15/16 14:40 Chest Wound Culture - Final 10/11/16 06:40 Blood Blood Culture - Final No Growth after 144 hours 10/11/16 11:47 Catheter Tip Catheter Tip Culture - Final 10/06/16 10:00 Blood Blood Culture - Final No Growth after 144 hours 10/06/16 21:00 Sputum Gram Stain - Final 10/06/16 21:00 Sputum Sputum Culture - Final Haemophilus influenzae Serratia marcescens Assessment and Plan (1) Acute respiratory failure Narrative/Plan: 71-year-old male with history of thyroid cancer recently was hospitalized at which point in time was having difficulties with congestive heart failure. He was noted evidence of aortic valve insufficiency and mitral valve regurgitation. There is also some lymphadenopathy noted within the chest. As he was taken to the operating room and aortic valve replacement occurred as well as mitral valve repair. Biopsy of mediastinal lymph nodes also occurred. 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 Patient was initiated to itraconazole. He however developed atrial fibrillation and was placed on amiodarone and the itraconazole dose was reduced. Upon discharge he has not been able to continue the itraconazole. However is only been home for a very short period of time we developed the progressive shortness of breath. At admission he has extensive edema in his abdominal cavity as well as evidence of congestive heart failure. Concerns to pneumonia given his significant leukocytosis and antibiotic therapy was begun with piperacillin tazobactam and vancomycin. Sputum culture with Haemophilus and Serratia resistant to Unasyn susceptible to Zosyn. We Will Continue Zosyn, Ongoing aggressive supportive care is continuing Cardiothoracic surgery is following after the reconstruction of the sternum, cultures are negative so far. No evidence of any infection Patient had extensive leukocytosis at admission. This is now improved. Zosyn antibiotic therapy is discontinued. Fortunately the sternum cultures are all negative and no evidence of deep infection of the sternum at this time. Status: Acute (2) Status post aortic valve replacement Status: Acute (3) Status post mitral valve repair Status: Acute (4) Histoplasmosis Status: Acute
[2016-10-22 05:18] LABS: Anisocytosis Slight; Basophils % (A) 0 %; CH 29.6; CHCM 30.9; Eosinophils # (A) 0.8 k/uL (0-0.7); Eosinophils % (A) 7 %; HCT 29.3 % (39.0-53.0); HDW 4.07; HGB 9.1 gm/dL (13.0-17.5); Hypochromasia Marked; Luc # (Auto) 0.13; Luc % (Auto) 1; Lymphocytes # (A) 0.9 k/uL (1.0-4.8); Lymphocytes % (A) 8 %; MCH 29.9 pg (25.0-35.0); MCV 96.5 fL (80.0-100.0); Macrocytosis Slight; Mean Platelet Volume 8.1; Monocytes # (A) 0.3 k/uL (0-1.0); Monocytes % (A) 2 %; Neutrophils # (A) 9.2 k/uL (1.3-7.7); Neutrophils % (A) 81 %; Poikilocytosis Moderate; RBC 3.04 m/uL (4.30-5.90); RDW 18.2 % (11.5-15.5); WBC 11.3 k/uL (3.8-10.6)
[2016-10-22 05:31] LABS: Anion Gap 5 mmol/L; Blood Urea Nitrogen 25 mg/dL (9-20); Calcium 7.5 mg/dL (8.4-10.2); Carbon Dioxide 26 mmol/L (22-30); Chloride 108 mmol/L (98-107); Glucose 107 mg/dL (74-99); Magnesium 2.5 mg/dL (1.6-2.3); Non-African American GFR(MDRD) >60 (>60 ml/min/1.73 sqM); Phosphorous 3.4 mg/dL (2.5-4.5); Potassium 4.1 mmol/L (3.5-5.1); Sodium 139 mmol/L (137-145)
[2016-10-22 05:33] LABS: INR 1.8 (<1.1); Partial Thromboplastin Time 28.1 sec (22.0-30.0); Prothrombin Time 17.1 sec (9.0-12.0)
[2016-10-22] MEDS: AMIODARONE 200 MG TAB PO SCH ×2 (07:24→19:22)
[2016-10-22] MEDS: LEVOTHYROXINE 75 MCG TAB PO SCH (07:24)
[2016-10-22 07:28] LABS: Glucose,Whole Blood 115 mg/dL (75-99)
[2016-10-22] MEDS: IPRATROPIUM-ALBUTEROL 3 ML NEB INHALATION SCH ×4 (08:00→20:07)
[2016-10-22] MEDS: INSULIN LISPRO (humaLOG) 300 UNIT/3 ML VIAL SQ SCH ×4 (08:00→21:34)
--- NOTE | 2016-10-22 08:38 | PN ---
DATE OF SERVICE: 10/21/2016 PRESENTING COMPLAINT: Thoracic surgery. INTERVAL HISTORY: This is a patient with multiple medical problems, status post sternum surgery with pectoralis flap. Patient actually sat up in a chair today and did eat about 50% of his meals. Blood pressure is running on the low side, about 80 systolic. Atrial fibrillation remains controlled. is at the bedside. Bit more awake. Review of systems done for constitutional, cardiovascular, GI, pulmonary; relevant findings as above. Current medications are reviewed and include DuoNeb, Cordarone, aspirin, digoxin, subcu heparin, Synthroid, Protonix. On examination, temperature 98.4, pulse 94, respirations 20, blood pressure 84/52, pulse ox 94% on 3-L. GENERAL APPEARANCE: Sitting up on a chair, a bit more awake, but still tired -appearing. EYES: Pupils equal. Conjunctivae pale. NECK: JVD unable to assess. Mass not palpable. RESPIRATORY: Effort increased. LUNGS: Diminished breath sounds. CARDIOVASCULAR: Heart sounds irregular. ABDOMEN: Soft, nontender. Liver and spleen not palpable. PSYCHIATRY: More awake, answering questions. INVESTIGATIONS: White count 8.7, hemoglobin 8.3, potassium 4.1, sodium 140, BUN 27, creatinine 1.07. TSH is 49, FT4 1.05. Chest x-ray is showing improving basilar infiltrates. Some fluid on the right side possibly present. ASSESSMENT: 1. Sternal wound dehiscence, now has pectoralis flap in place, was initially done for coronary artery bypass graft. 2. Acute hypoxic respiratory failure requiring ventilator assistance now extubated on nasal cannula. 3. Acute renal failure, probably acute tubular necrosis from hypoperfusion on presentation now resolved. 4. Persistent atrial fibrillation, rate control. Patient is put on Coumadin. 5. Chronic histoplasmosis, status post biopsy, current status activity unclear. 6. Bilateral pleural effusion with the right thoracentesis of bloody fluid 1.63 L was removed. 7. Hypercholesterolemia. 8. Essential hypertension, history of. 9. Hypothyroidism. 10. Hypotension, multifactorial. 11. Obesity. 12. Primary osteoarthritis. 13. Hypothyroidism. 14. Moderate secondary pulmonary hypertension. 15. Gastroesophageal reflux disease. 16. Hypernatremia from free water deficit, no corrected. 17. Pneumonia secondary to Haemophilus influenza and Serratia marcescens. PLAN: Continue current medication and treatment plan. Patient's CODE STATUS remains FULL. Patient is slowly improving. Blood pressure is running on the low side. Will order a 2-D echo to make sure there is no pericardial effusion.
--- NOTE | 2016-10-22 08:51 | XR ---
EXAMINATION TYPE: XR chest 1V portable DATE OF EXAM: 10/22/2016 6:33 AM Comparison: 10/21/2016 Clinical History: 71-year-old male post op AVR Findings: Anterior midline skin yoli with bilateral surgical drains and underlying mediastinal drain and pro sthetic aortic valve. Left PICC tip is not clearly seen beyond the mid SVC level. Continued borderline cardiomegaly with diffuse interstitial opacities and small bilateral pleural eff usions with bibasilar airspace opacities. There is convexly marginated thin curvilinear opacity at th e left upper lung equivocal for pneumothorax. Impression: 1. Finding is equivocal between a superior left pneumothorax versus projectional artifact. Short inte rval follow-up recommended. Chest tubes are in place. Finding called to nurse Sylwia on 6-ICU at 8:45a m. 2. Continued pulmonary vascular congestion/interstitial edema. 3. Continued small pleural effusions with adjacent atelectasis and/or consolidation.
[2016-10-22] MEDS: DIGOXIN 125 MCG TAB PO SCH (09:09)
[2016-10-22] MEDS: METOPROLOL TARTRATE 25 MG TAB PO SCH ×2 (09:09→21:01)
[2016-10-22] MEDS: PANTOPRAZOLE 40 MG/10 ML VIAL IVP SCH (09:10)
[2016-10-22] MEDS: HEPARIN SODIUM,PORCINE 5,000 UNIT/ML 1 ML VIAL SQ SCH ×3 (09:10→22:58)
[2016-10-22] MEDS: ASPIRIN 81 MG CHEW PO SCH (09:10)
--- NOTE | 2016-10-22 09:17 | XR ---
EXAMINATION TYPE: XR chest 1V DATE OF EXAM: 10/22/2016 9:05 AM COMPARISON: Earlier today HISTORY: 71-year-old male possible left-sided pneumothorax, repeat exam TECHNIQUE: Single frontal view of the chest is obtained. FINDINGS: Bilateral chest tubes remain in place. There is no appreciated pneumothorax on the left. Otherwise, t he exam is stable with small to moderate effusions, probable pulmonary vascular congestion, and bibas ilar atelectasis and/or consolidation. IMPRESSION: Repeat exam without appreciable pneumothorax. Otherwise stable.
--- NOTE | 2016-10-22 10:46 | ECHOF ---
Referral Reason:pericardial effusion MEASUREMENTS -------- HEIGHT: 175.3 cm WEIGHT: 112.9 kg BP: 149/89 FINDINGS -------- Pt had Complete echo done on 10/08/15, Limited Study to R/O pericardial Effusion. Overall left ventricular systolic function is low-normal with, an EF between 50 - 55 %. There is a trivial pericardial effusion present. CONCLUSIONS -------- 1. Pt had Complete echo done on 10/08/15, Limited Study to R/O pericardial Effusion. 2. Overall left ventricular systolic function is low-normal with, an EF between 50 - 55 %. 3. There is a trivial pericardial effusion present. RESIZER OPERATOR: Irasema Elam RDCS
[2016-10-22 12:40] LABS: Glucose,Whole Blood 105 mg/dL (75-99)
--- NOTE | 2016-10-22 16:52 | P.PN ---
Subjective This is a 61-year-old male patient was undergone a cardiac surgery which involved aVR with mitral valve repair on 09/29/2016. The patient was discharged home on 10/04/2016. Following that the patient was readmitted to the hospital because of increased shortness of breath, acute respiratory failure , cough, syncope and sternal wound dehiscence. The patient was seen by cardiology thoracic surgery and he was taken back to the operating room where he underwent a closure of the sternal wound with a muscle flap on 10/15/2016. The patient was extubated off the mechanical ventilator on 10/16/2016. He initially had difficulties with swallowing yet he is currently doing better. He developed a right-sided pleural effusion he had an attempt for thoracentesis was done yesterday by Dr. Armando and this failed. Apparently there was no adequate fluid drainage during the procedure. As such the procedure was aborted. The patient has a left-sided chest tube in place which is draining approximately less than 100 mL over the past 24 hours and the plan is to take of the chest tube. He is actually taking well at 6 L/m nasal cannula. His is or 82. He is hemodynamically stable. He is pulling approximately 500 on the incentive spirometer. The patient has MEGHAN drains on his sternal wound a total of 3 and the drainage is not active at this point. The patient is hemodynamically stable on no pressors. His CODE STATUS is full at this point. On 10/19/2016 I'm seeing this patient in follow-up. He is doing well. He is sitting up on a bed and he is on 5 L of oxygen by nasal cannula. His chest x- ray still showing better pleural effusion worse on the right and the plan is to proceed with thoracentesis this morning. He is tolerating his diet. No nausea. No vomiting. No chest pain. Sternum stable clean and intact. No fever. No chills. White cell count is at 10.0 and hemoglobin is at 8.4 which is stable. The patient remains on IV Zosyn. I discussed the case with Dr. Ramos and we'll keep the Sporanox on hold for the time being due to concerns of drug interaction. The patient has had Haemophilus and Serratia in his sputum. The MEGHAN drains are still in place. MEGHAN drain #1 has put out 20 mL and # 2 has put out 80 mL of urine output is around 50 mL an hour. On 10/20/2016 I'm seeing this patient in follow-up. The patient has been weaned down to 4 L of oxygen by nasal cannula. He underwent a thoracentesis of the right lung yesterday and total of 1.6 L of pleural fluid was aspirated from the right lung. Patient is doing well. The patient is not having any major respiratory difficulties. The patient was able to breathe better following the procedure. No significant cough or sputum production. The patient has Haemophilus and consideration his sputum and the patient is still on IV Zosyn. MEGHAN drain is still in place. No chills. No fever. He is gradually increasing his oral intake. No other significant events over the past 24 hours. He is having episodes of paroxysmal atrial fibrillation and the patient is on no anti- coagulation at this point. This will be further discussed with cardiology. On 10/21/2016 the patient is being seen in follow-up. He is doing well. No specific complaints. His follow-up chest x-ray from today shows improving bibasilar pulmonary infiltrates with moderate amount of infiltration still on the right along with some residual pleural effusion. He was started on long- term anticoagulation. He is in atrial fibrillation. Is tolerating his diet. He is weak however his getting stronger and is able to sit up on a chair. MEGHAN drains are in place and the output in the 3 tubes are still active and they will be kept in place for the time being. On 10/22/2016, the patient is being seen in follow-up. He is on of getting slightly confused yet he is not agitated and, comfortable. Hemodynamically stable. No significant rest or distress. Chest x-ray findings are essentially stable with atelectatic changes and small effusion the lung bases bilaterally. MEGHAN drains are all in place. Surgery is monitoring the output and managing the MEGHAN drains. Meanwhile, the patient is being migrated and INR is subtherapeutic at 1.8. He remains in atrial fibrillation with a controlled rate. Hemoglobin is stable. Patient is tolerating his diet. No nausea. No vomiting. No abdominal pain. He has trace edema in lower extremities bilaterally. No other significant events over the past 24 hours. Objective - Vital Signs Vital signs: Vital Signs Temp 97.9 F 10/22/16 08:00 Pulse 80 10/22/16 16:20 Resp 16 10/22/16 12:00 BP 81/66 10/22/16 12:00 Pulse Ox 94 L 10/22/16 12:00 Intake & Output 10/21/16 10/22/16 10/22/16 18:59 06:59 18:59 Intake Total 20 292 290 Output Total 600 398 627 Balance -580 -106 -337 Weight 113 kg 112.4 kg Intake: IV 20 70 140 0.9 70 140 Sodium Chloride 0.9% 1, 20 000 ml @ 20 mls/hr IV . Q24H STEVAN Rx#:[id number] Oral 222 150 Output: Drainage 100 150 232 Left Lateral Chest 45 25 40 Medial Chest 40 100 180 Right Lateral Chest 15 25 12 Urine 500 248 395 Other: Voiding Method Indwelling Catheter Indwelling Catheter Indwelling Catheter # Bowel Movements 1 ABP, PAP, CO, CI - Last Documented Arterial Blood Pressure 104/50 - Exam Head exam was generally normal. There was no scleral icterus or corneal arcus. Mucous membranes were moist.Neck was supple and without jugular venous distension, thyromegaly, or carotid bruits. Carotids were easily palpable bilaterally. There was no adenopathy. Lung sounds are diminished in the lung base bilaterally especially in the right lung base. The patient has weak and poor respiratory efforts. Patient had a left-sided chest tube in place. Heart sounds are regular, positive S1-S2 and there is no significant murmurs appreciated. Sternum was stable clean and intact and the patient's sternal wound is covered with a Aquacel silver dressing. MEGHAN drains were visualized. No active drainage from the wounds.Abdominal exam revealed normal bowel sounds. The abdomen was soft, non-tender, and without masses, organomegaly, or appreciable enlargement of the abdominal aorta.Examination of the extremities revealed easily palpable radial, femoral and pedal pulses. There was no cyanosis , clubbing or edema. - Labs CBC & Chem 7: 10/22/16 05:00 10/22/16 05:00 Labs: Abnormal Lab Results - Last 24 Hours (Table) 10/21/16 10/21/16 10/22/16 Range/Units 17:16 20:58 05:00 WBC 11.3 H (3.8-10.6) k/uL RBC 3.04 L (4.30-5.90) m/uL Hgb 9.1 L (13.0-17.5) gm/dL Hct 29.3 L (39.0-53.0) % RDW 18.2 H (11.5-15.5) % Neutrophils # 9.2 H (1.3-7.7) k/uL Lymphocytes # 0.9 L (1.0-4.8) k/uL Eosinophils # 0.8 H (0-0.7) k/uL PT (9.0-12.0) sec Chloride (98-107) mmol/L BUN (9-20) mg/dL Glucose (74-99) mg/dL POC Glucose (mg/dL) 113 H 132 H (75-99) mg/dL Calcium (8.4-10.2) mg/dL Magnesium (1.6-2.3) mg/dL 10/22/16 10/22/16 10/22/16 Range/Units 05:00 05:00 07:25 WBC (3.8-10.6) k/uL RBC (4.30-5.90) m/uL Hgb (13.0-17.5) gm/dL Hct (39.0-53.0) % RDW (11.5-15.5) % Neutrophils # (1.3-7.7) k/uL Lymphocytes # (1.0-4.8) k/uL Eosinophils # (0-0.7) k/uL PT 17.1 H (9.0-12.0) sec Chloride 108 H (98-107) mmol/L BUN 25 H (9-20) mg/dL Glucose 107 H (74-99) mg/dL POC Glucose (mg/dL) 115 H (75-99) mg/dL Calcium 7.5 L (8.4-10.2) mg/dL Magnesium 2.5 H (1.6-2.3) mg/dL 10/22/16 Range/Units 12:36 WBC (3.8-10.6) k/uL RBC (4.30-5.90) m/uL Hgb (13.0-17.5) gm/dL Hct (39.0-53.0) % RDW (11.5-15.5) % Neutrophils # (1.3-7.7) k/uL Lymphocytes # (1.0-4.8) k/uL Eosinophils # (0-0.7) k/uL PT (9.0-12.0) sec Chloride (98-107) mmol/L BUN (9-20) mg/dL Glucose (74-99) mg/dL POC Glucose (mg/dL) 105 H (75-99) mg/dL Calcium (8.4-10.2) mg/dL Magnesium (1.6-2.3) mg/dL Assessment and Plan Plan: Assessment 1 status post aortic valve replacement and mitral valve repair and the patient is postop day #23 2 sternal wound dehiscence, post muscle flap, postop day #7 3 post extubation and the patient was weaned off the mechanical ventilator on 4 bilateral pleural effusion, status post thoracentesis of the right lung and evacuation of 1.6 L of pleural fluid 5 left-sided chest tube with diminished output, and the chest tube was removed yesterday 6 paroxysmal fibrillation, paroxysmal currently in sinus rhythm, on anticoagulants and the PT/INR is subtherapeutic 7 hypertension 8 hyperlipidemia 9 thyroid cancer with a previous thyroidectomy 10 osteoarthritis 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 The patient was seen by Dr. Ramos. Recommendations were treating this patient with itraconazole 100 mg by mouth twice a day. 12 Serratia marcescens and Haemophilus influenza in the sputum, currently on IV Zosyn 13 hypernatremia, improved 14 generalized weakness 15 episodes of change in mental status, possibly secondary to a component of the reading. Plan Monitor the output from the MEGHAN drains. The patient will milligram of Coumadin today. Monitor PT/INR. Continue the supportive care. Early mobility. Incentive spirometer. Deep breathing. Pulmonate toileting. May transfer out of the intensive care unit once the room and telemetry is available.
[2016-10-22 17:05] LABS: Glucose,Whole Blood 123 mg/dL (75-99)
--- NOTE | 2016-10-22 17:34 | P.PN ---
Progress Note - Text CV Surgery Nursing Principal diagnosis: Acute hypoxic respiratory failure requiring mechanical ventilation, present on admission. Sputum culture positive for Haemophilus influenza, serratia marcescens. Currently on Zosyn, vancomycin. Infectious disease following. CAT scan of the chest on 10/09/16 demonstrated dehiscence of sternal wires, an unexpected postsurgical condition related to the patient's underlying comorbidities. Left pleural effusion. POD #25 aortic valve replacement, mitral valve repair, modified Frederick maze, mediastinal lymph node biopsy. POD #7 sternal exploration due to sternal debridement and wound closure with bilateral pectoralis major myocutaneous advancement flaps. POD #7 placement of left chest tube for left pleural effusion. Status post day #3 right thoracentesis for right pleural effusion with drainage of 1.5 L of dark red-tinged thin drainage. Patient awake and alert, oriented [address] He states the date is 1993. Review oriented to time. No distress noted, is complaining of generalized weakness although he is speaking much better today. Denies complaints of pain. Vital Signs: Afebrile Vital Signs - 24 hr 10/21/16 10/21/16 10/21/16 09:00 10:00 11:00 Temperature Pulse Rate 80 108 H 74 Respiratory 22 27 H 20 Rate Blood Pressure 93/59 99/55 99/62 O2 Sat by Pulse 94 L 89 L 96 Oximetry 10/21/16 10/21/16 10/21/16 11:32 11:45 12:00 Temperature 98.4 F Pulse Rate 80 82 94 Respiratory 40 H Rate Blood Pressure 84/52 O2 Sat by Pulse 94 L Oximetry 10/21/16 10/21/16 10/21/16 13:00 14:00 15:00 Temperature Pulse Rate 73 87 80 Respiratory 19 18 21 Rate Blood Pressure 73/48 89/62 92/56 O2 Sat by Pulse 96 96 94 L Oximetry 10/21/16 10/21/16 10/21/16 15:20 15:34 16:00 Temperature 97.3 F L Pulse Rate 80 78 101 H Respiratory 40 H Rate Blood Pressure 84/56 O2 Sat by Pulse 90 L Oximetry 10/21/16 10/21/16 10/21/16 17:00 18:00 19:00 Temperature Pulse Rate 77 74 91 Respiratory 27 H 16 28 H Rate Blood Pressure 78/60 76/56 95/58 O2 Sat by Pulse 92 L 93 L 93 L Oximetry 10/21/16 10/21/16 10/21/16 19:21 19:39 20:00 Temperature 97.9 F Pulse Rate 101 H 100 95 Respiratory 26 H Rate Blood Pressure 92/73 O2 Sat by Pulse 94 L Oximetry 10/21/16 10/21/16 10/21/16 21:00 22:00 23:00 Temperature 98.3 F Pulse Rate 91 83 95 Respiratory 18 18 18 Rate Blood Pressure 104/56 103/58 74/55 O2 Sat by Pulse 95 95 95 Oximetry 10/22/16 10/22/16 10/22/16 00:00 01:00 02:00 Temperature Pulse Rate 108 H 92 82 Respiratory 21 19 19 Rate Blood Pressure 90/55 99/60 76/58 O2 Sat by Pulse 90 L 90 L 92 L Oximetry 10/22/16 10/22/16 10/22/16 03:00 04:00 05:00 Temperature 98.5 F Pulse Rate 88 100 87 Respiratory 22 19 21 Rate Blood Pressure 100/65 104/59 84/57 O2 Sat by Pulse 90 L 91 L 92 L Oximetry 10/22/16 10/22/16 10/22/16 06:00 07:00 08:00 Temperature 97.9 F Pulse Rate 90 95 86 Respiratory 22 17 18 Rate Blood Pressure 79/64 90/54 98/72 O2 Sat by Pulse 92 L 94 L 91 L Oximetry 10/22/16 08:12 Temperature Pulse Rate 75 Respiratory Rate Blood Pressure O2 Sat by Pulse Oximetry Labs: Short CBC 10/22/16 Range/Units 05:00 WBC 11.3 H (3.8-10.6) k/uL Hgb 9.1 L (13.0-17.5) gm/dL Hct 29.3 L (39.0-53.0) % Plt Count 221 (150-450) k/uL Neutrophils # 9.2 H (1.3-7.7) k/uL BMP 10/22/16 05:00 Sodium 139 Potassium 4.1 Chloride 108 H Carbon Dioxide 26 BUN 25 H Creatinine 1.10 Glucose 107 H Calcium 7.5 L ABG ABG pH 7.46 (7.35-7.45) H 10/16/16 04:45 ABG pCO2 41 mmHg (35-45) 10/16/16 04:45 ABG pO2 101 mmHg (83-108) 10/16/16 04:45 ABG O2 Saturation 98.0 % (94-97) H 10/16/16 04:45 PT/INR, D-dimer PT 17.1 sec (9.0-12.0) H 10/22/16 05:00 INR 1.8 (<1.1) 10/22/16 05:00 D-Dimer 6.31 mg/L FEU (<0.60) H 10/06/16 21:00 Coumadin 5 mg by mouth 1 given on 10/19/2016.-INR 1.3 Coumadin 1 mg by mouth 1 given on 10/20/2016.- INR 1.5 Coumadin 1 mg by mouth 1 given on 10/20/2016- INR 2.0 Microbiology 10/15/16 14:40 Chest Anaerobic Culture - Final 10/15/16 14:40 Chest Anaerobic Culture - Final 10/15/16 14:40 Chest Anaerobic Culture - Final 10/15/16 14:40 Chest Gram Stain - Final 10/15/16 14:40 Chest Tissue Culture - Final 10/15/16 14:40 Chest Gram Stain - Final 10/15/16 14:40 Chest Wound Culture - Final 10/15/16 14:40 Chest Gram Stain - Final 10/15/16 14:40 Chest Wound Culture - Final 10/11/16 06:40 Blood Blood Culture - Final No Growth after 144 hours 10/11/16 11:47 Catheter Tip Catheter Tip Culture - Final 10/06/16 10:00 Blood Blood Culture - Final No Growth after 144 hours 10/06/16 21:00 Sputum Gram Stain - Final 10/06/16 21:00 Sputum Sputum Culture - Final Haemophilus influenzae Serratia marcescens Lungs: Few scattered rhonchi throughout, diminished bilateral bases right greater than left. Respirations are symmetrical and unlabored. Patient with nonproductive loose cough this a.m. O2 sat: 94% on room air. I/S: 1000 mL, reviewed with the patient important of using his incentive spirometry every hour while awake. The patient did give a good return demonstration on his incentive spirometry. He will need encouragement on the use due to his generalized weakness. Heart: S1S2, irregular rhythm with controlled rate, negative for S3, gallop or murmur. Bedside telemetry showing atrial fibrillation heart rate 94. Chest incision clean with Silver dressing clean and dry. MEGHAN drains in place draining serosanguineous drainage. Right chest MEGHAN drain with 10 mL output in the last 8 hours, 30 mL output in the last 24 hours. The mid chest MEGHAN drain draining serosanguineous drainage. 250 mL output in the last 8 hours, 260 mL output in the last 24 hours. Left chest MEGHAN drain draining thin serosanguineous drainage. 0 mL output in the last 8 hours, 55 mL output in the last [address] in place, reminded patient on use of her heart hugger. Knee-high ORLIN hose and sequential compression devices in place to bilateral lower extremities. Patient does have +2 edema to his bilateral lower extremities. Abdomen: Soft, Positive bowel sounds present in all 4 quadrants, positive BM this a.m. CBGs: 100-132 mg/dL in the last 24 hours. U/O: Adequate, Duong catheter for accurate I&O. 260 mL output in the last 8 hours. 24 hr Total: Intake & Output 10/20/16 10/21/16 10/22/16 10/23/16 06:59 06:59 06:59 06:59 Intake Total 1230 1710 312 50 Output Total 3650 1525 998 327 Balance -2420 185 -686 -277 Weight 112.7 kg 113 kg 112.4 kg Active Medications Albuterol/Ipratropium (Duoneb 0.5 Mg-3 Mg/3 Ml Soln) 3 ml INHALATION RT-QID [facility] Last Admin: 10/22/16 08:00 Dose: 3 ml Amiodarone HCl (Cordarone) 200 mg PO BID@0600,1800 [facility] Last Admin: 10/22/16 07:24 Dose: 200 mg Aspirin (Aspirin) 81 mg PO DAILY [facility] Last Admin: 10/22/16 09:10 Dose: 81 mg Digoxin (Lanoxin) 125 mcg PO DAILY [facility] Last Admin: 10/22/16 09:09 Dose: 125 mcg Heparin Sodium (Porcine) (Heparin) 5,000 unit SQ Q8HR [facility] Last Admin: 10/22/16 09:10 Dose: 5,000 unit Ibuprofen (Motrin Oral Susp Cup) 600 mg PO Q6H PRN PRN Reason: Fever and/or Mild Pain Last Admin: 10/11/16 02:21 Dose: 600 mg Insulin Human Lispro (Humalog) 0 unit SQ ACHS [facility] PRN Reason: Protocol Last Admin: 10/22/16 08:00 Dose: Not Given Levothyroxine Sodium (Synthroid) 150 mcg PO DAILY@0630 [facility] Last Admin: 10/22/16 07:24 Dose: 150 mcg Metoprolol Tartrate (Lopressor) 25 mg PO BID [facility] Last Admin: 10/22/16 09:09 Dose: 25 mg Miscellaneous Information (Magnesium Per Protocol) 1 each MISCELLANE DAILY PRN ; Protocol PRN Reason: Per Protocol Miscellaneous Information (Phosphorus Per Protocol) 1 each MISCELLANE DAILY PRN ; Protocol PRN Reason: Per Protocol Miscellaneous Information (Potassium Per Protocol) 1 each MISCELLANE DAILY PRN ; Protocol PRN Reason: Per Protocol Miscellaneous Information (Potassium Per Protocol) 1 each MISCELLANE DAILY PRN ; Protocol PRN Reason: Per Protocol Pantoprazole Sodium (Protonix) 40 mg IVP DAILY [facility] Last Admin: 10/22/16 09:10 Dose: 40 mg Sodium Chloride (Saline Flush) 20 ml IV Q4HR PRN PRN Reason: PICC Line Sodium Chloride (Saline Flush) 10 ml IV WEEKLY [facility] Last Admin: 10/18/16 08:29 Dose: Not Given Plan: 1. Continue aspirin, metoprolol, digoxin, heparin sc. 2. Continue amiodarone 200 mg PO BID, for A. fib prophylaxis. Cardiology managing. 3. Zosyn discontinued per infectious disease. Dr. Ramos is following. 4. Pulmonary management per Dr. Albert recommendations. Right-sided thoracentesis completed 10/19/[address] Albert with 1.5 L of blood-tinged fluid drained. 5. Daily labs, x-rays. 6. Diabetic management per internal medicine service. 7. MEGHAN drains will remain in place. We will continue to monitor drainage. 8. Strict I/O, daily weights. 9. Coumdain 1 mg po today, daily pt/inr. 10. More recommendations as patient progresses.
[2016-10-22] MEDS ORDERED: WARFARIN 1 MG TAB PO ONE (18:00)
--- NOTE | 2016-10-22 20:13 | P.PN ---
Subjective Principal diagnosis: Respiratory failure This is a 71-year-old male who came in the hospital on September 23 and underwent a JAYDE and heart catheterization showing a ruptured chordae tendonae, mitral regurgitation, moderate pulmonary hypertension, with history of paroxysmal atrial fibrillation and heart failure. 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 With this the patient was initiated to itraconazole. He however developed atrial fibrillation. Because of this he was initiated to amiodarone. The dose of itraconazole was reduced by 50%. There is no evidence of any ulcerations of the QT interval while he was in hospital. He eventually was discharged home. It is related that he was not able to obtain the itraconazole. In this is going to be addressed in the coming days. However the brought him to the emergency room feeling very short of breath. He was having abdominal distention with increasing shortness of breath. Through his stay in emergency center he continues to feel more more short of breath. He then developed respiratory failure which required intubation sedation mechanical ventilation. Over the following days he is improved was extubated in his continue to improve. His extensive edema has improved. Especially the massive abdominal edema that he was having. Extremity edema is also improved. He is awake and interactive voices improving further today eating well without new complaints Objective - Vital Signs Vital signs: Vital Signs Temp 97.9 F 10/22/16 16:50 Pulse 81 10/22/16 18:41 Resp 16 10/22/16 18:41 BP 101/63 10/22/16 18:41 Pulse Ox 97 10/22/16 18:41 Intake & Output 10/22/16 10/22/16 10/23/16 06:59 18:59 06:59 Intake Total 292 290 Output Total 398 727 Balance -106 -437 Weight 112.4 kg Intake: IV 70 140 0.9 70 140 Oral 222 150 Output: Drainage 150 332 Left Lateral Chest 25 50 Medial Chest 100 265 Right Lateral Chest 25 17 Urine 248 395 Other: Voiding Method Indwelling Catheter Indwelling Catheter ABP, PAP, CO, CI - Last Documented Arterial Blood Pressure 104/50 - Exam This is a 71-year-old male. comfortable HEENT: Head is atraumatic, normocephalic. Pupils equal, round. Sclerae is anicteric. Conjunctiva slightly pale. Mucous membranes of the mouth are moist. No thrush noted. NECK: Supple. No JVD. No lymphadenopathy. No thyromegaly. LUNGS: There is symmetrical air entry. There are bibasal crackles. No significant bronchial sounds. HEART: Irregular with no no murmur Dressing on sternal wound with no breakthrough bleeding or drainage. Right sided pleural chest tube in place. ABDOMEN: Distinctly distended. Few bowel sounds are noted. Organomegaly is not detected. EXTREMITIES: +1 bilateral pedal edema. No calf tenderness. ORLIN hose in place. 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 Voice is stronger. Mentation is clear. Skin :patient has an extensive dressing to the chest where there was difficulty with the dehiscence. - Labs CBC & Chem 7: 10/22/16 05:00 10/22/16 05:00 Labs: Abnormal Lab Results - Last 24 Hours (Table) 10/21/16 10/22/16 10/22/16 Range/Units 20:58 05:00 05:00 WBC 11.3 H (3.8-10.6) k/uL RBC 3.04 L (4.30-5.90) m/uL Hgb 9.1 L (13.0-17.5) gm/dL Hct 29.3 L (39.0-53.0) % RDW 18.2 H (11.5-15.5) % Neutrophils # 9.2 H (1.3-7.7) k/uL Lymphocytes # 0.9 L (1.0-4.8) k/uL Eosinophils # 0.8 H (0-0.7) k/uL PT (9.0-12.0) sec Chloride 108 H (98-107) mmol/L BUN 25 H (9-20) mg/dL Glucose 107 H (74-99) mg/dL POC Glucose (mg/dL) 132 H (75-99) mg/dL Calcium 7.5 L (8.4-10.2) mg/dL Magnesium 2.5 H (1.6-2.3) mg/dL 10/22/16 10/22/16 10/22/16 Range/Units 05:00 07:25 12:36 WBC (3.8-10.6) k/uL RBC (4.30-5.90) m/uL Hgb (13.0-17.5) gm/dL Hct (39.0-53.0) % RDW (11.5-15.5) % Neutrophils # (1.3-7.7) k/uL Lymphocytes # (1.0-4.8) k/uL Eosinophils # (0-0.7) k/uL PT 17.1 H (9.0-12.0) sec Chloride (98-107) mmol/L BUN (9-20) mg/dL Glucose (74-99) mg/dL POC Glucose (mg/dL) 115 H 105 H (75-99) mg/dL Calcium (8.4-10.2) mg/dL Magnesium (1.6-2.3) mg/dL 10/22/16 Range/Units 17:03 WBC (3.8-10.6) k/uL RBC (4.30-5.90) m/uL Hgb (13.0-17.5) gm/dL Hct (39.0-53.0) % RDW (11.5-15.5) % Neutrophils # (1.3-7.7) k/uL Lymphocytes # (1.0-4.8) k/uL Eosinophils # (0-0.7) k/uL PT (9.0-12.0) sec Chloride (98-107) mmol/L BUN (9-20) mg/dL Glucose (74-99) mg/dL POC Glucose (mg/dL) 123 H (75-99) mg/dL Calcium (8.4-10.2) mg/dL Magnesium (1.6-2.3) mg/dL Laboratory Results WBC 11.3 k/uL (3.8-10.6) H 10/22/16 05:00 RBC 3.04 m/uL (4.30-5.90) L 10/22/16 05:00 Hgb 9.1 gm/dL (13.0-17.5) L 10/22/16 05:00 Hct 29.3 % (39.0-53.0) L 10/22/16 05:00 MCV 96.5 fL (80.0-100.0) 10/22/16 05:00 MCH 29.9 pg (25.0-35.0) 10/22/16 05:00 MCHC 31.0 g/dL (31.0-37.0) 10/22/16 05:00 RDW 18.2 % (11.5-15.5) H 10/22/16 05:00 Plt Count 221 k/uL (150-450) 10/22/16 05:00 Neutrophils % 81 % 10/22/16 05:00 Neutrophils % (Manual) 85.5 % 10/08/16 04:20 Band Neutrophils % 0.5 % 10/08/16 04:20 Lymphocytes % 8 % 10/22/16 05:00 Lymphocytes % (Manual) 5.5 % 10/08/16 04:20 Monocytes % 2 % 10/22/16 05:00 Monocytes % (Manual) 4.0 % 10/08/16 04:20 Eosinophils % 7 % 10/22/16 05:00 Eosinophils % (Manual) 3.0 % 10/08/16 04:20 Basophils % 0 % 10/22/16 05:00 Metamyelocytes % 1.0 % 10/08/16 04:20 Myelocytes % 0.5 % 10/08/16 04:20 Neutrophils # 9.2 k/uL (1.3-7.7) H 10/22/16 05:00 Neutrophils # (Manual) 16.2 k/uL (1.3-7.7) H 10/08/16 04:20 Lymphocytes # 0.9 k/uL (1.0-4.8) L 10/22/16 05:00 Lymphocytes # (Manual) 1.0 k/uL (1.0-4.8) 10/08/16 04:20 Monocytes # 0.3 k/uL (0-1.0) 10/22/16 05:00 Monocytes # (Manual) 0.8 k/uL (0-1.0) 10/08/16 04:20 Eosinophils # 0.8 k/uL (0-0.7) H 10/22/16 05:00 Eosinophils # (Manual) 0.6 k/uL (0-0.7) 10/08/16 04:20 Basophils # 0.0 k/uL (0-0.2) 10/22/16 05:00 Nucleated RBCs 0 /100 WBC (0-0) 10/08/16 04:20 Manual Slide Review Performed 10/08/16 04:20 Large Platelets Present 10/06/16 21:00 Polychromasia Present 10/08/16 04:20 Hypochromasia Marked 10/22/16 05:00 Poikilocytosis Moderate 10/22/16 05:00 Poikilocytosis (manual Present 10/08/16 04:20 Anisocytosis Slight 10/22/16 05:00 Macrocytosis Slight 10/22/16 05:00 Ovalocytes Present 10/06/16 21:00 PT 17.1 sec (9.0-12.0) H 10/22/16 05:00 INR 1.8 (<1.1) 10/22/16 05:00 APTT 28.1 sec (22.0-30.0) 10/22/16 05:00 D-Dimer 6.31 mg/L FEU (<0.60) H 10/06/16 21:00 Sample Site [place] 10/16/16 04:45 ABG pH 7.46 (7.35-7.45) H 10/16/16 04:45 ABG pCO2 41 mmHg (35-45) 10/16/16 04:45 ABG pO2 101 mmHg (83-108) 10/16/16 04:45 ABG HCO3 29 mmol/L (21-25) H 10/16/16 04:45 ABG Total CO2 30 mmol/L (19-24) H 10/16/16 04:45 ABG O2 Saturation 98.0 % (94-97) H 10/16/16 04:45 ABG Base Excess 5.3 mmol/L 10/16/16 04:45 FiO2 50 % 10/16/16 04:45 Sodium 139 mmol/L (137-145) 10/22/16 05:00 Potassium 4.1 mmol/L (3.5-5.1) 10/22/16 05:00 Chloride 108 mmol/L (98-107) H 10/22/16 05:00 Carbon Dioxide 26 mmol/L (22-30) 10/22/16 05:00 Anion Gap 5 mmol/L 10/22/16 05:00 BUN 25 mg/dL (9-20) H 10/22/16 05:00 Creatinine 1.10 mg/dL (0.66-1.25) 10/22/16 05:00 Est GFR (MDRD) Af Amer >60 (>60 ml/min/1.73 sqM) 10/22/16 05:00 Est GFR (MDRD) Non-Af >60 (>60 ml/min/1.73 sqM) 10/22/16 05:00 Glucose 107 mg/dL (74-99) H 10/22/16 05:00 POC Glucose (mg/dL) 123 mg/dL (75-99) H 10/22/16 17:03 POC Glu Electro Mechanic ID Sylwia Walker 10/22/16 17:[address] Glu mg/dL 120 mg/dL 10/07/16 05:18 Hemoglobin A1c 5.8 % (4.2-6.1) 10/07/16 05:18 Plasma Lactic Acid Samir 1.0 mmol/L (0.7-2.0) 10/07/16 05:18 Calcium 7.5 mg/dL (8.4-10.2) L 10/22/16 05:00 Ionized Calcium Guille 4.4 mg/dL (4.5-5.3) L 10/15/16 05:00 Phosphorus 3.4 mg/dL (2.5-4.5) 10/22/16 05:00 Magnesium 2.5 mg/dL (1.6-2.3) H 10/22/16 05:00 Total Bilirubin 0.9 mg/dL (0.2-1.3) 10/18/16 05:00 AST 27 U/L (17-59) 10/18/16 05:00 ALT 38 U/L (21-72) 10/18/16 05:00 Alkaline Phosphatase 62 U/L (38-126) 10/18/16 05:00 Total Creatine Kinase 736 U/L (55-170) H 10/06/16 09:50 CK-MB (CK-2) 7.2 ng/mL (0.0-2.4) H* 10/06/16 09:50 CK-MB (CK-2) Rel Index 1.0 10/06/16 09:50 Troponin I 1.510 ng/mL (0.000-0.034) H* 10/06/16 09:50 NT-Pro-B Natriuret Pep 6520 pg/mL 10/06/16 09:50 Total Protein 5.2 g/dL (6.3-8.2) L 10/18/16 05:00 Albumin 2.4 g/dL (3.5-5.0) L 10/18/16 05:00 TSH 49.300 mIU/L (0.465-4.680) H 10/21/16 05:15 Free T4 1.05 ng/dL (0.78-2.19) 10/21/16 05:15 Urine Color Dark Yellow 10/06/16 18:30 Urine Appearance Cloudy (Clear) 10/06/16 18:30 Urine pH 5.0 (5.0-8.0) 10/06/16 18:30 Ur Specific [place] 1.018 (1.001-1.035) 10/06/16 18:30 Urine Protein Trace (Negative) H 10/06/16 18:30 Urine Glucose (UA) Negative (Negative) 10/06/16 18:30 Urine Ketones Negative (Negative) 10/06/16 18:30 Urine Blood Negative (Negative) 10/06/16 18:30 Urine Nitrite Negative (Negative) 10/06/16 18:30 Urine Bilirubin 1+ (Negative) H 10/06/16 18:30 Urine Urobilinogen 4.0 mg/dL (<2.0) 10/06/16 18:30 Ur Leukocyte Esterase Negative (Negative) 10/06/16 18:30 Urine WBC 10 /hpf (0-5) H 10/06/16 18:30 Ur Squamous Epith Cells 2 /hpf (0-4) 10/06/16 18:30 Calcium Oxalate Crystal Occasional /hpf (None) H 10/06/16 18:30 Amorphous Sediment Occasional /hpf (None) H 10/06/16 18:30 Hyaline Casts 79 /lpf (0-2) H 10/06/16 18:30 Urine Mucus Rare /hpf (None) H 10/06/16 18:30 Vancomycin Trough 15.0 ug/mL 10/17/16 04:10 Digoxin 0.9 ng/mL 10/17/16 20:36 Blood Type O Positive 10/14/16 13:52 Blood Type Recheck No 10/14/16 13:52 Antibody Screen NEGATIVE 10/14/16 13:52 Crossmatch See Detail 10/14/16 13:52 Transfuse Platelets 4/21/17 04/20/17 13:52 Spec Expiration Date 10/17/2016 - 235110/14/16 13:52 Microbiology 10/15/16 14:40 Chest Anaerobic Culture - Final 10/15/16 14:40 Chest Anaerobic Culture - Final 10/15/16 14:40 Chest Anaerobic Culture - Final 10/15/16 14:40 Chest Gram Stain - Final 10/15/16 14:40 Chest Tissue Culture - Final 10/15/16 14:40 Chest Gram Stain - Final 10/15/16 14:40 Chest Wound Culture - Final 10/15/16 14:40 Chest Gram Stain - Final 10/15/16 14:40 Chest Wound Culture - Final 10/11/16 06:40 Blood Blood Culture - Final No Growth after 144 hours 10/11/16 11:47 Catheter Tip Catheter Tip Culture - Final 10/06/16 10:00 Blood Blood Culture - Final No Growth after 144 hours 10/06/16 21:00 Sputum Gram Stain - Final 10/06/16 21:00 Sputum Sputum Culture - Final Haemophilus influenzae Serratia marcescens Assessment and Plan (1) Acute respiratory failure Narrative/Plan: 71-year-old male with history of thyroid cancer recently was hospitalized at which point in time was having difficulties with congestive heart failure. He was noted evidence of aortic valve insufficiency and mitral valve regurgitation. There is also some lymphadenopathy noted within the chest. As he was taken to the operating room and aortic valve replacement occurred as well as mitral valve repair. Biopsy of mediastinal lymph nodes also occurred. 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 Patient was initiated to itraconazole. He however developed atrial fibrillation and was placed on amiodarone and the itraconazole dose was reduced. Upon discharge he has not been able to continue the itraconazole. However is only been home for a very short period of time we developed the progressive shortness of breath. At admission he has extensive edema in his abdominal cavity as well as evidence of congestive heart failure. Concerns to pneumonia given his significant leukocytosis and antibiotic therapy was begun with piperacillin tazobactam and vancomycin. Sputum culture with Haemophilus and Serratia resistant to Unasyn susceptible to Zosyn. We Will Continue Zosyn, Ongoing aggressive supportive care is continuing Cardiothoracic surgery is following after the reconstruction of the sternum, cultures are negative so far. No evidence of any infection Patient had extensive leukocytosis at admission. This is now improved. Zosyn antibiotic therapy is discontinued. Fortunately the sternum cultures are all negative and no evidence of deep infection of the sternum at this time. He is doing well off of antibiotic therapy has being monitored. Status: Acute (2) Status post aortic valve replacement Status: Acute (3) Status post mitral valve repair Status: Acute (4) Histoplasmosis Status: Acute
[2016-10-22 21:13] LABS: Glucose,Whole Blood 130 mg/dL (75-99)
[2016-10-23 06:14] LABS: Anisocytosis Slight; Basophils % (A) 0 %; CH 29.7; CHCM 31.4; Eosinophils # (A) 0.8 k/uL (0-0.7); Eosinophils % (A) 8 %; HCT 26.5 % (39.0-53.0); HDW 4.25; HGB 8.4 gm/dL (13.0-17.5); Hypochromasia Marked; Luc # (Auto) 0.15; Luc % (Auto) 2; Lymphocytes # (A) 0.9 k/uL (1.0-4.8); Lymphocytes % (A) 9 %; MCH 30.4 pg (25.0-35.0); MCHC 31.9 g/dL (31.0-37.0); MCV 95.4 fL (80.0-100.0); Macrocytosis Slight; Mean Platelet Volume 8.4; Monocytes # (A) 0.4 k/uL (0-1.0); Monocytes % (A) 4 %; Neutrophils % (A) 78 %; Poikilocytosis Moderate; RBC 2.77 m/uL (4.30-5.90); RDW 18.2 % (11.5-15.5); WBC 10.4 k/uL (3.8-10.6); WBC (Perox) 10.28
[2016-10-23 06:16] LABS: Glucose,Whole Blood 125 mg/dL (75-99)
[2016-10-23] MEDS: INSULIN LISPRO (humaLOG) 300 UNIT/3 ML VIAL SQ SCH ×4 (06:17→20:38)
[2016-10-23] MEDS: AMIODARONE 200 MG TAB PO SCH (06:20)
[2016-10-23] MEDS: LEVOTHYROXINE 75 MCG TAB PO SCH (06:21)
[2016-10-23 06:26] LABS: INR 1.3 (<1.1); Prothrombin Time 13.2 sec (9.0-12.0)
[2016-10-23 06:27] LABS: Anion Gap 4 mmol/L; Blood Urea Nitrogen 28 mg/dL (9-20); Calcium 7.3 mg/dL (8.4-10.2); Carbon Dioxide 27 mmol/L (22-30); Chloride 107 mmol/L (98-107); Glucose 106 mg/dL (74-99); Magnesium 2.3 mg/dL (1.6-2.3); Non-African American GFR(MDRD) >60 (>60 ml/min/1.73 sqM); Phosphorous 3.3 mg/dL (2.5-4.5); Potassium 4.2 mmol/L (3.5-5.1); Sodium 138 mmol/L (137-145)
--- NOTE | 2016-10-23 07:15 | PCN ---
DATE OF PROCEDURE: 10/15/2016 ADDENDUM: OPERATIVE PROCEDURE: Sternal exploration, debridement, bilateral pectoralis major myocutaneous flap closure. This addendum is to report on the details of the sternal debridement. After opening the skin and exposing the sternal wound there was some old blood present and the clot was removed with forceps. There was fibrinous exudate present on the tissues and this was removed by blunt debridement. We then did a more vigorous sharp excisonal debridement of the bone using first curette and then using rongeurs to remove any or devitalized tissue. Having convinced ourselves of removing all fibrinous exudate and and devitalized tissue we then proceeded with closure as previously dictated. WILSON
[2016-10-23] MEDS: IPRATROPIUM-ALBUTEROL 3 ML NEB INHALATION SCH ×4 (07:52→20:42)
--- NOTE | 2016-10-23 08:26 | PN ---
DATE OF SERVICE: 10/22/2016 PRESENTING COMPLAINT: Thoracic surgery. INTERVAL HISTORY: Patient with multiple medical problems status post sternal surgery with pectoralis flap. The wires had come loose from the sternal wound and hence, the pectoralis flap. There is no underlying infection. Zosyn was discontinued by Dr. Ramos today. Culture all remain negative. He is sitting up in a chair. Not eating much. Tired, though a bit more awake and communicative. Blood pressure running about 90 systolic. The patient remains in atrial fibrillation, rate controlled. Review of systems done for constitutional, cardiovascular, GI, pulmonary; relevant findings as above. Current medications are reviewed and include Cordarone, aspirin, Synthroid. Antibiotics discontinued. On examination, temperature 97.9, pulse 86, respiration 18, blood pressure 90/72, pulse ox 91%. GENERAL APPEARANCE: Sitting up on a chair. Tired-appearing, awake. EYES: Pupils equal. Conjunctivae pale. NECK: JVD unable to assess. Mass not palpable. RESPIRATORY: Effort increased. LUNGS: Decreased breath sounds. CARDIOVASCULAR: Heart sounds irregular. ABDOMEN: Soft, nontender. Liver and spleen not palpable. PSYCHIATRY: Awake, answering questions. INVESTIGATIONS: White count 11.3, hemoglobin 9.1, potassium 4.1, INR 1.8, BUN 25, creatinine 1.10. Chest x-ray shows chest tubes in place. Limited echocardiogram. There is no pericardial effusion. ASSESSMENT: 1. Sternal wound dehiscence with loosening of wires, possibly from coughing, now patient has a pectoralis flap initially done for coronary artery bypass graft on the previous admission. 2. Acute hypoxic respiratory failure requiring ventilator assistance now extubated on nasal cannula. 3. Acute renal failure, probably acute tubular necrosis from hypoperfusion on presentation, now resolved. 4. Persistent atrial fibrillation, rate controlled. Patient is on Coumadin. 5. Chronic histoplasmosis status post biopsy. Actual etiology stays unclear at the present time as per Pulmonary. 6. Bilateral pleural effusions with the right thoracentesis of bloody fluid 1.6 L was removed on this admission. 7. Hypercholesterolemia. 8. Essential hypertension, history of. 9. Hypothyroidism. 10. Hypotension, multifactorial, pericardial effusion ruled out. 11. Obesity. 12. Primary osteoarthritis. 13. Hypothyroidism. 14. Moderate secondary pulmonary hypertension. 15. Gastroesophageal reflux disease. 16. Hypernatremia from free water deficit earlier, now corrected. 17. Pneumonia secondary to Haemophilus influenza and Serratia marcescens, has now completed a course of antibiotics. 18. CODE STATUS: FULL. PLAN: Continue current medication and treatment plan. Overall prognosis still remains guarded, but patient is making slow progress. Care was discussed with the patient.
[2016-10-23] MEDS: HEPARIN SODIUM,PORCINE 5,000 UNIT/ML 1 ML VIAL SQ SCH ×2 (08:42→17:25)
[2016-10-23] MEDS: DIGOXIN 125 MCG TAB PO SCH (08:42)
[2016-10-23] MEDS: ASPIRIN 81 MG CHEW PO SCH (08:42)
[2016-10-23] MEDS: PANTOPRAZOLE 40 MG/10 ML VIAL IVP SCH (08:43)
[2016-10-23] MEDS: METOPROLOL TARTRATE 25 MG TAB PO SCH ×2 (09:05→20:35)
--- NOTE | 2016-10-23 11:25 | P.PN ---
Progress Note - Text CV Surgery Nursing POD: #26 aortic valve replacement, mitral valve repair, modified Frederick maze, mediastinal lymph node biopsy POD #8 sternal exploration due to sternal debridement and wound closure with bilateral pectoralis major myocutaneous advancement flaps. POD #8 placement of left chest tube for left pleural effusion. POD #4 right thoracentesis for right pleural effusion with drainage of 1.5 L of dark red tinged fluid Patient awake and alert, no distress noted, no specific complaints. remains weak Vital Signs: Afebrile , T-max 98.9F Vital Signs - 24 hr 10/22/16 10/22/16 10/22/16 11:00 12:00 12:07 Temperature Pulse Rate 73 74 75 Pulse Rate [ Bilateral Dorsalis Pedis] Pulse Rate [ Pulse Oximetery ] Respiratory 17 16 Rate Blood Pressure 91/68 81/66 Blood Pressure [Right Arm] O2 Sat by Pulse 93 L 94 L Oximetry 10/22/16 10/22/16 10/22/16 12:21 12:40 12:50 Temperature Pulse Rate 78 72 85 Pulse Rate [ Bilateral Dorsalis Pedis] Pulse Rate [ Pulse Oximetery ] Respiratory 14 12 Rate Blood Pressure 100/63 100/63 Blood Pressure [Right Arm] O2 Sat by Pulse 96 90 L Oximetry 10/22/16 10/22/16 10/22/16 13:00 13:10 13:20 Temperature Pulse Rate 87 99 90 Pulse Rate [ Bilateral Dorsalis Pedis] Pulse Rate [ Pulse Oximetery ] Respiratory 10 L 16 18 Rate Blood Pressure 100/63 100/63 100/63 Blood Pressure [Right Arm] O2 Sat by Pulse 87 L Oximetry 10/22/16 10/22/16 10/22/16 13:30 13:40 13:50 Temperature Pulse Rate 86 79 87 Pulse Rate [ Bilateral Dorsalis Pedis] Pulse Rate [ Pulse Oximetery ] Respiratory 20 22 22 Rate Blood Pressure 135/75 135/75 135/75 Blood Pressure [Right Arm] O2 Sat by Pulse 96 Oximetry 10/22/16 10/22/16 10/22/16 14:00 14:10 14:20 Temperature Pulse Rate 74 81 90 Pulse Rate [ Bilateral Dorsalis Pedis] Pulse Rate [ Pulse Oximetery ] Respiratory 21 30 H 20 Rate Blood Pressure 135/75 135/75 135/75 Blood Pressure [Right Arm] O2 Sat by Pulse 85 L Oximetry 10/22/16 10/22/16 10/22/16 14:30 14:40 14:50 Temperature Pulse Rate 84 86 79 Pulse Rate [ Bilateral Dorsalis Pedis] Pulse Rate [ Pulse Oximetery ] Respiratory 21 17 14 Rate Blood Pressure 135/75 96/59 96/59 Blood Pressure [Right Arm] O2 Sat by Pulse 95 95 Oximetry 10/22/16 10/22/16 10/22/16 15:00 15:10 15:20 Temperature Pulse Rate 71 82 77 Pulse Rate [ Bilateral Dorsalis Pedis] Pulse Rate [ Pulse Oximetery ] Respiratory 14 19 14 Rate Blood Pressure 96/59 96/59 96/59 Blood Pressure [Right Arm] O2 Sat by Pulse 94 L 95 Oximetry 10/22/16 10/22/16 10/22/16 15:30 15:40 15:50 Temperature Pulse Rate 68 73 72 Pulse Rate [ Bilateral Dorsalis Pedis] Pulse Rate [ Pulse Oximetery ] Respiratory 19 15 23 Rate Blood Pressure 76/56 76/56 76/56 Blood Pressure [Right Arm] O2 Sat by Pulse 95 94 L 96 Oximetry 10/22/16 10/22/16 10/22/16 16:00 16:06 16:10 Temperature Pulse Rate 83 80 91 Pulse Rate [ Bilateral Dorsalis Pedis] Pulse Rate [ Pulse Oximetery ] Respiratory 19 22 Rate Blood Pressure 76/56 76/56 Blood Pressure [Right Arm] O2 Sat by Pulse 97 95 Oximetry 10/22/16 10/22/16 10/22/16 16:20 16:30 16:40 Temperature Pulse Rate 73 90 80 Pulse Rate [ Bilateral Dorsalis Pedis] Pulse Rate [ Pulse Oximetery ] Respiratory 19 19 21 Rate Blood Pressure 76/56 94/59 94/59 Blood Pressure [Right Arm] O2 Sat by Pulse 99 92 L 95 Oximetry 10/22/16 10/22/16 10/22/16 16:50 17:00 18:41 Temperature 97.9 F Pulse Rate 89 77 Pulse Rate [ 81 Bilateral Dorsalis Pedis] Pulse Rate [ Pulse Oximetery ] Respiratory 19 15 16 Rate Blood Pressure 94/59 94/59 Blood Pressure 101/63 [Right Arm] O2 Sat by Pulse 95 93 L 97 Oximetry 10/22/16 10/22/16 10/22/16 20:00 20:07 20:21 Temperature 98.9 F Pulse Rate 77 76 Pulse Rate [ 71 Bilateral Dorsalis Pedis] Pulse Rate [ Pulse Oximetery ] Respiratory 18 Rate Blood Pressure Blood Pressure 117/68 [Right Arm] O2 Sat by Pulse 98 Oximetry 10/23/16 10/23/16 10/23/16 00:00 03:47 07:53 Temperature 98.0 F 98.4 F Pulse Rate 72 Pulse Rate [ 68 66 Bilateral Dorsalis Pedis] Pulse Rate [ Pulse Oximetery ] Respiratory 17 18 Rate Blood Pressure Blood Pressure 98/61 100/52 [Right Arm] O2 Sat by Pulse 97 95 Oximetry 10/23/16 10/23/16 08:00 08:07 Temperature Pulse Rate 84 Pulse Rate [ Bilateral Dorsalis Pedis] Pulse Rate [ 80 Pulse Oximetery ] Respiratory 17 Rate Blood Pressure Blood Pressure 111/71 [Right Arm] O2 Sat by Pulse 94 L Oximetry Labs: Short CBC 10/23/16 Range/Units 06:00 WBC 10.4 (3.8-10.6) k/uL Hgb 8.4 L (13.0-17.5) gm/dL Hct 26.5 L (39.0-53.0) % Plt Count 235 (150-450) k/uL Neutrophils # 8.0 H (1.3-7.7) k/uL BMP 10/23/16 06:00 Sodium 138 Potassium 4.2 Chloride 107 Carbon Dioxide 27 BUN 28 H Creatinine 1.00 Glucose 106 H Calcium 7.3 L PT 13.2 INR 1.3 Microbiology 10/15/16 14:40 Chest Anaerobic Culture - Final 10/15/16 14:40 Chest Anaerobic Culture - Final 10/15/16 14:40 Chest Anaerobic Culture - Final 10/15/16 14:40 Chest Gram Stain - Final 10/15/16 14:40 Chest Tissue Culture - Final 10/15/16 14:40 Chest Gram Stain - Final 10/15/16 14:40 Chest Wound Culture - Final 10/15/16 14:40 Chest Gram Stain - Final 10/15/16 14:40 Chest Wound Culture - Final 10/11/16 06:40 Blood Blood Culture - Final No Growth after 144 hours 10/11/16 11:47 Catheter Tip Catheter Tip Culture - Final 10/06/16 10:00 Blood Blood Culture - Final No Growth after 144 hours 10/06/16 21:00 Sputum Gram Stain - Final 10/06/16 21:00 Sputum Sputum Culture - Final Haemophilus influenzae Serratia marcescens Lungs: respirations are even and nonlabored, breath sounds remained diminished bilaterally O2 sat: 94% on 4 L of oxygen delivered via nasal cannula I/S: 1000 mL Heart: S1S2, portable telemetry shows atrial fibrillation with a controlled ventricular response of about 80 Sternum stable, chest incision clean with dressing clean and dry. Abdomen: Soft, Positive bowel sounds present in all 4 quadrants. CBGs:105-130 mg/dL U/O: Duong to dependent drainage with adequate urine output left Shahriar-Esquivel drain with 50 mL of serous drainage in the last 24 hours Mid Shahriar-Esquivel drain with 275 mL of serous drainage in the last 24 hours Right Shahriar-Esquivel drain with 30 mL of serous drainage in the last 24 hours 24 hr Total:355 mL Intake & Output 10/21/16 10/22/16 10/23/16 10/24/16 06:59 06:59 06:59 06:59 Intake Total 6471 319 4870 Output Total 6928 375 1587 100 Balance 185 -686 -702 -100 Weight 113 kg 112.4 kg 111.5 kg Active Medications Albuterol/Ipratropium (Duoneb 0.5 Mg-3 Mg/3 Ml Soln) 3 ml INHALATION RT-QID [facility] Last Admin: 10/23/16 07:52 Dose: 3 ml Amiodarone HCl (Cordarone) 200 mg PO BID@0600,1800 [facility] Last Admin: 10/23/16 06:20 Dose: 200 mg Aspirin (Aspirin) 81 mg PO DAILY [facility] Last Admin: 10/23/16 08:42 Dose: 81 mg Digoxin (Lanoxin) 125 mcg PO DAILY [facility] Last Admin: 10/23/16 08:42 Dose: 125 mcg Heparin Sodium (Porcine) (Heparin) 5,000 unit SQ Q8HR [facility] Last Admin: 10/23/16 08:42 Dose: 5,000 unit Ibuprofen (Motrin Oral Susp Cup) 600 mg PO Q6H PRN PRN Reason: Fever and/or Mild Pain Last Admin: 10/11/16 02:21 Dose: 600 mg Insulin Human Lispro (Humalog) 0 unit SQ ACHS [facility] PRN Reason: Protocol Last Admin: 10/23/16 06:17 Dose: Not Given Levothyroxine Sodium (Synthroid) 150 mcg PO DAILY@0630 [facility] Last Admin: 10/23/16 06:21 Dose: 150 mcg Metoprolol Tartrate (Lopressor) 25 mg PO BID [facility] Last Admin: 10/23/16 09:05 Dose: 25 mg Miscellaneous Information (Magnesium Per Protocol) 1 each MISCELLANE DAILY PRN ; Protocol PRN Reason: Per Protocol Miscellaneous Information (Phosphorus Per Protocol) 1 each MISCELLANE DAILY PRN ; Protocol PRN Reason: Per Protocol Miscellaneous Information (Potassium Per Protocol) 1 each MISCELLANE DAILY PRN ; Protocol PRN Reason: Per Protocol Miscellaneous Information (Potassium Per Protocol) 1 each MISCELLANE DAILY PRN ; Protocol PRN Reason: Per Protocol Pantoprazole Sodium (Protonix) 40 mg IVP DAILY [facility] Last Admin: 10/23/16 08:43 Dose: 40 mg Sodium Chloride (Saline Flush) 20 ml IV Q4HR PRN PRN Reason: PICC Line Sodium Chloride (Saline Flush) 10 ml IV WEEKLY [facility] Last Admin: 10/18/16 08:29 Dose: Not Given Plan: continue current medical regime infectious disease service is following Pulmonary following Cardiology following Keep MEGHAN drains in place Anticoagulation with Coumadin for A. fib
[2016-10-23 11:59] LABS: Glucose,Whole Blood 133 mg/dL (75-99)
--- NOTE | 2016-10-23 12:01 | P.PN ---
Subjective Principal diagnosis: Status post mitral valve repair and aortic valve replacement. Status post open-heart surgery, respiratory failure, atrial fibrillation and CHF and sternal dehiscence, pleural effusion Patient is a status post repair of the mitral valve and also aortic valve replacement. Patient seemed to be doing better. Getting stronger every day. Being followed on the telemetry unit today. Continues to be in atrial fibrillation with a controlled ventricular response. He seemed to be much more alert. Blood pressure today 110/70 with a heart rate in the 70s. 94% on 4 L of oxygen. He received 1 mg of Coumadin yesterday, INR today is 1.3, hemoglobin 8.4. Magnesium level 2.3. We will give the patient 1 mg of Coumadin today. Objective - Vital Signs Vital signs: Vital Signs Temp 98.4 F 10/23/16 03:47 Pulse 84 10/23/16 08:07 Resp 17 10/23/16 08:00 BP 111/71 10/23/16 08:00 Pulse Ox 94 L 10/23/16 08:00 Intake & Output 10/22/16 10/23/16 10/23/16 18:59 06:59 18:59 Intake Total 290 960 Output Total 727 1225 100 Balance -437 -265 -100 Weight 111.5 kg Intake: IV 140 0 0.9 140 0 Oral 150 960 Output: Drainage 332 75 100 Left Lateral Chest 50 0 Medial Chest 265 60 100 Right Lateral Chest 17 15 Urine 395 1150 0 Other: Voiding Method Indwelling Catheter Indwelling Catheter Indwelling Catheter # Voids 0 # Bowel Movements 0 ABP, PAP, CO, CI - Last Documented Arterial Blood Pressure 104/50 - Exam GENERAL EXAM: Patient is extubated. He is alert, awake. He is still weak and frail HEENT: Normocephalic. Normal reaction of pupils, equal size, normal range of extraocular motion. No erythema or exudates in the throat. NECK: No masses, no nuchal rigidity. CHEST: No chest wall deformity. LUNGS: [Diminished breath sounds, scattered rhonchi HEART: Irregular heart rhythm ABDOMEN: No hepatosplenomegaly, normal bowel sounds, no guarding or rigidity. SKIN: No rashes CENTRAL NERVOUS SYSTEM: Sedated EXTREMITIES: No cyanosis, clubbing or edema. - Labs CBC & Chem 7: 10/23/16 06:00 10/23/16 06:00 Labs: Abnormal Lab Results - Last 24 Hours (Table) 10/22/16 10/22/16 10/22/16 Range/Units 12:36 17:03 20:47 RBC (4.30-5.90) m/uL Hgb (13.0-17.5) gm/dL Hct (39.0-53.0) % RDW (11.5-15.5) % Neutrophils # (1.3-7.7) k/uL Lymphocytes # (1.0-4.8) k/uL Eosinophils # (0-0.7) k/uL PT (9.0-12.0) sec BUN (9-20) mg/dL Glucose (74-99) mg/dL POC Glucose (mg/dL) 105 H 123 H 130 H (75-99) mg/dL Calcium (8.4-10.2) mg/dL 10/23/16 10/23/16 10/23/16 Range/Units 05:56 06:00 06:00 RBC (4.30-5.90) m/uL Hgb (13.0-17.5) gm/dL Hct (39.0-53.0) % RDW (11.5-15.5) % Neutrophils # (1.3-7.7) k/uL Lymphocytes # (1.0-4.8) k/uL Eosinophils # (0-0.7) k/uL PT 13.2 H (9.0-12.0) sec BUN 28 H (9-20) mg/dL Glucose 106 H (74-99) mg/dL POC Glucose (mg/dL) 125 H (75-99) mg/dL Calcium 7.3 L (8.4-10.2) mg/dL 10/23/16 Range/Units 06:00 RBC 2.77 L (4.30-5.90) m/uL Hgb 8.4 L (13.0-17.5) gm/dL Hct 26.5 L (39.0-53.0) % RDW 18.2 H (11.5-15.5) % Neutrophils # 8.0 H (1.3-7.7) k/uL Lymphocytes # 0.9 L (1.0-4.8) k/uL Eosinophils # 0.8 H (0-0.7) k/uL PT (9.0-12.0) sec BUN (9-20) mg/dL Glucose (74-99) mg/dL POC Glucose (mg/dL) (75-99) mg/dL Calcium (8.4-10.2) mg/dL Assessment and Plan (1) Paroxysmal a-fib Status: Acute (2) Status post aortic valve replacement Status: Acute (3) Status post mitral valve repair Status: Acute (4) Congestive heart failure due to valvular disease Status: Acute (5) Histoplasmosis Status: Acute (6) Hypercholesterolemia Status: Acute (7) Hypertension Status: Acute (8) Hypothyroidism (acquired) Status: Acute Plan: Patient seems to be progressing well overall. Appetite has improved. Breathing is much more stable. We will give him 1 mg of Coumadin today, check daily PT/INRs. DNP note has been reviewed, I agree with a documented findings and plan of care. Patient was seen and examined.
--- NOTE | 2016-10-23 12:02 | P.PN ---
Progress Note - Text Diastolic congestive heart failure acute on chronic. DNP note has been reviewed, I agree with a documented findings and plan of care. Patient was seen and examined.
--- NOTE | 2016-10-23 12:13 | P.PN ---
Subjective This is a 61-year-old male patient was undergone a cardiac surgery which involved aVR with mitral valve repair on 09/29/2016. The patient was discharged home on 10/04/2016. Following that the patient was readmitted to the hospital because of increased shortness of breath, acute respiratory failure , cough, syncope and sternal wound dehiscence. The patient was seen by cardiology thoracic surgery and he was taken back to the operating room where he underwent a closure of the sternal wound with a muscle flap on 10/15/2016. The patient was extubated off the mechanical ventilator on 10/16/2016. He initially had difficulties with swallowing yet he is currently doing better. He developed a right-sided pleural effusion he had an attempt for thoracentesis was done yesterday by Dr. Armando and this failed. Apparently there was no adequate fluid drainage during the procedure. As such the procedure was aborted. The patient has a left-sided chest tube in place which is draining approximately less than 100 mL over the past 24 hours and the plan is to take of the chest tube. He is actually taking well at 6 L/m nasal cannula. His is or 82. He is hemodynamically stable. He is pulling approximately 500 on the incentive spirometer. The patient has MEGHAN drains on his sternal wound a total of 3 and the drainage is not active at this point. The patient is hemodynamically stable on no pressors. His CODE STATUS is full at this point. On 10/19/2016 I'm seeing this patient in follow-up. He is doing well. He is sitting up on a bed and he is on 5 L of oxygen by nasal cannula. His chest x- ray still showing better pleural effusion worse on the right and the plan is to proceed with thoracentesis this morning. He is tolerating his diet. No nausea. No vomiting. No chest pain. Sternum stable clean and intact. No fever. No chills. White cell count is at 10.0 and hemoglobin is at 8.4 which is stable. The patient remains on IV Zosyn. I discussed the case with Dr. Ramos and we'll keep the Sporanox on hold for the time being due to concerns of drug interaction. The patient has had Haemophilus and Serratia in his sputum. The MEGHAN drains are still in place. MEGHAN drain #1 has put out 20 mL and # 2 has put out 80 mL of urine output is around 50 mL an hour. On 10/20/2016 I'm seeing this patient in follow-up. The patient has been weaned down to 4 L of oxygen by nasal cannula. He underwent a thoracentesis of the right lung yesterday and total of 1.6 L of pleural fluid was aspirated from the right lung. Patient is doing well. The patient is not having any major respiratory difficulties. The patient was able to breathe better following the procedure. No significant cough or sputum production. The patient has Haemophilus and consideration his sputum and the patient is still on IV Zosyn. MEGHAN drain is still in place. No chills. No fever. He is gradually increasing his oral intake. No other significant events over the past 24 hours. He is having episodes of paroxysmal atrial fibrillation and the patient is on no anti- coagulation at this point. This will be further discussed with cardiology. On 10/21/2016 the patient is being seen in follow-up. He is doing well. No specific complaints. His follow-up chest x-ray from today shows improving bibasilar pulmonary infiltrates with moderate amount of infiltration still on the right along with some residual pleural effusion. He was started on long- term anticoagulation. He is in atrial fibrillation. Is tolerating his diet. He is weak however his getting stronger and is able to sit up on a chair. MEGHAN drains are in place and the output in the 3 tubes are still active and they will be kept in place for the time being. On 10/22/2016, the patient is being seen in follow-up. He is on of getting slightly confused yet he is not agitated and, comfortable. Hemodynamically stable. No significant rest or distress. Chest x-ray findings are essentially stable with atelectatic changes and small effusion the lung bases bilaterally. MEGHAN drains are all in place. Surgery is monitoring the output and managing the MEGHAN drains. Meanwhile, the patient is being migrated and INR is subtherapeutic at 1.8. He remains in atrial fibrillation with a controlled rate. Hemoglobin is stable. Patient is tolerating his diet. No nausea. No vomiting. No abdominal pain. He has trace edema in lower extremities bilaterally. No other significant events over the past 24 hours. On 10/23/2016 the patient is being seen on the medical floor. The patient is on telemetry unit. He is doing well. A bit lethargic and on and off confused. For the most part he is comfortable. On examination, he has diminished breath sounds on the right and I suspect that is the recommendation of the pleural fluid on the right side. Meanwhile, the patient on 2 L of oxygen by nasal cannula. No breathing difficulties. MEGHAN drains are in place. He has edematous extremities. PT/INR is subtherapeutic. Hemoglobin stable at 8.4. Objective - Vital Signs Vital signs: Vital Signs Temp 98.4 F 10/23/16 03:47 Pulse 84 10/23/16 08:07 Resp 17 10/23/16 08:00 BP 111/71 10/23/16 08:00 Pulse Ox 94 L 10/23/16 08:00 Intake & Output 10/22/16 10/23/16 10/23/16 18:59 06:59 18:59 Intake Total 290 960 Output Total 727 1225 500 Balance -437 -265 -500 Weight 111.5 kg Intake: IV 140 0 0.9 140 0 Oral 150 960 Output: Drainage 332 75 100 Left Lateral Chest 50 0 Medial Chest 265 60 100 Right Lateral Chest 17 15 Urine 395 1150 400 Other: Voiding Method Indwelling Catheter Indwelling Catheter Indwelling Catheter # Voids 0 # Bowel Movements 1 ABP, PAP, CO, CI - Last Documented Arterial Blood Pressure 104/50 - Exam Head exam was generally normal. There was no scleral icterus or corneal arcus. Mucous membranes were moist.Neck was supple and without jugular venous distension, thyromegaly, or carotid bruits. Carotids were easily palpable bilaterally. There was no adenopathy. Lung sounds are diminished in the lung base bilaterally especially in the right lung base. The patient has weak and poor respiratory efforts. Patient had a left-sided chest tube in place. Heart sounds are regular, positive S1-S2 and there is no significant murmurs appreciated. Sternum was stable clean and intact and the patient's sternal wound is covered with a Aquacel silver dressing. MEGHAN drains were visualized. No active drainage from the wounds.Abdominal exam revealed normal bowel sounds. The abdomen was soft, non-tender, and without masses, organomegaly, or appreciable enlargement of the abdominal aorta.Examination of the extremities revealed easily palpable radial, femoral and pedal pulses. There was no cyanosis , clubbing or edema. - Labs CBC & Chem 7: 10/23/16 06:00 10/23/16 06:00 Labs: Abnormal Lab Results - Last 24 Hours (Table) 10/22/16 10/22/16 10/22/16 Range/Units 12:36 17:03 20:47 RBC (4.30-5.90) m/uL Hgb (13.0-17.5) gm/dL Hct (39.0-53.0) % RDW (11.5-15.5) % Neutrophils # (1.3-7.7) k/uL Lymphocytes # (1.0-4.8) k/uL Eosinophils # (0-0.7) k/uL PT (9.0-12.0) sec BUN (9-20) mg/dL Glucose (74-99) mg/dL POC Glucose (mg/dL) 105 H 123 H 130 H (75-99) mg/dL Calcium (8.4-10.2) mg/dL 10/23/16 10/23/16 10/23/16 Range/Units 05:56 06:00 06:00 RBC (4.30-5.90) m/uL Hgb (13.0-17.5) gm/dL Hct (39.0-53.0) % RDW (11.5-15.5) % Neutrophils # (1.3-7.7) k/uL Lymphocytes # (1.0-4.8) k/uL Eosinophils # (0-0.7) k/uL PT 13.2 H (9.0-12.0) sec BUN 28 H (9-20) mg/dL Glucose 106 H (74-99) mg/dL POC Glucose (mg/dL) 125 H (75-99) mg/dL Calcium 7.3 L (8.4-10.2) mg/dL 10/23/16 10/23/16 Range/Units 06:00 11:56 RBC 2.77 L (4.30-5.90) m/uL Hgb 8.4 L (13.0-17.5) gm/dL Hct 26.5 L (39.0-53.0) % RDW 18.2 H (11.5-15.5) % Neutrophils # 8.0 H (1.3-7.7) k/uL Lymphocytes # 0.9 L (1.0-4.8) k/uL Eosinophils # 0.8 H (0-0.7) k/uL PT (9.0-12.0) sec BUN (9-20) mg/dL Glucose (74-99) mg/dL POC Glucose (mg/dL) 133 H (75-99) mg/dL Calcium (8.4-10.2) mg/dL Assessment and Plan Plan: Assessment 1 status post aortic valve replacement and mitral valve repair and the patient is postop day #24 2 sternal wound dehiscence, post muscle flap, postop day #8 3 post extubation and the patient was weaned off the mechanical ventilator on 4 bilateral pleural effusion, status post thoracentesis of the right lung and evacuation of 1.6 L of pleural fluid 5 left-sided chest tube with diminished output, and the chest tube was removed yesterday 6 paroxysmal fibrillation, paroxysmal currently in sinus rhythm, on anticoagulants and the PT/INR is subtherapeutic 7 hypertension 8 hyperlipidemia 9 thyroid cancer with a previous thyroidectomy 10 osteoarthritis 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 The patient was seen by Dr. Ramos. Recommendations were treating this patient with itraconazole 100 mg by mouth twice a day. 12 Serratia marcescens and Haemophilus influenza in the sputum, currently on IV Zosyn 13 hypernatremia, improved 14 generalized weakness 15 episodes of change in mental status, possibly secondary to delirium. Plan The patient is calm and comfortable. We'll repeat the chest x-ray in the morning. We'll consider another thoracentesis of the right lung that is significant recommendation of the pleural fluid. Meanwhile, continue the supportive care, daily physical therapy, mobility, MEGHAN drain management per surgery and will continue to follow.
[2016-10-23 16:19] LABS: Glucose,Whole Blood 124 mg/dL (75-99)
[2016-10-23] MEDS ORDERED: WARFARIN 2 MG TAB PO ONE (18:00)
[2016-10-23 20:38] LABS: Glucose,Whole Blood 147 mg/dL (75-99)
[2016-10-24] MEDS: HEPARIN SODIUM,PORCINE 5,000 UNIT/ML 1 ML VIAL SQ SCH ×3 (00:36→17:34)
[2016-10-24 05:56] LABS: Glucose,Whole Blood 101 mg/dL (75-99)
[2016-10-24] MEDS: INSULIN LISPRO (humaLOG) 300 UNIT/3 ML VIAL SQ SCH ×4 (06:11→21:46)
[2016-10-24] MEDS: LEVOTHYROXINE 75 MCG TAB PO SCH (06:12)
[2016-10-24 07:06] LABS: INR 1.2 (<1.1); Magnesium 2.3 mg/dL (1.6-2.3); Phosphorous 3.7 mg/dL (2.5-4.5); Prothrombin Time 11.9 sec (9.0-12.0)
[2016-10-24] MEDS: DIGOXIN 125 MCG TAB PO SCH (07:38)
[2016-10-24] MEDS: PANTOPRAZOLE 40 MG/10 ML VIAL IVP SCH (07:38)
[2016-10-24] MEDS: METOPROLOL TARTRATE 25 MG TAB PO SCH ×2 (07:38→21:09)
[2016-10-24] MEDS: ASPIRIN 81 MG CHEW PO SCH (07:39)
[2016-10-24] MEDS: IPRATROPIUM-ALBUTEROL 3 ML NEB INHALATION SCH ×4 (09:43→20:54)
[2016-10-24 11:29] LABS: Glucose,Whole Blood 126 mg/dL (75-99)
--- NOTE | 2016-10-24 12:34 | P.PN ---
Subjective This is a 61-year-old male patient was undergone a cardiac surgery which involved aVR with mitral valve repair on 09/29/2016. The patient was discharged home on 10/04/2016. Following that the patient was readmitted to the hospital because of increased shortness of breath, acute respiratory failure , cough, syncope and sternal wound dehiscence. The patient was seen by cardiology thoracic surgery and he was taken back to the operating room where he underwent a closure of the sternal wound with a muscle flap on 10/15/2016. The patient was extubated off the mechanical ventilator on 10/16/2016. He initially had difficulties with swallowing yet he is currently doing better. He developed a right-sided pleural effusion he had an attempt for thoracentesis was done yesterday by Dr. Armando and this failed. Apparently there was no adequate fluid drainage during the procedure. As such the procedure was aborted. The patient has a left-sided chest tube in place which is draining approximately less than 100 mL over the past 24 hours and the plan is to take of the chest tube. He is actually taking well at 6 L/m nasal cannula. His is or 82. He is hemodynamically stable. He is pulling approximately 500 on the incentive spirometer. The patient has MEGHAN drains on his sternal wound a total of 3 and the drainage is not active at this point. The patient is hemodynamically stable on no pressors. His CODE STATUS is full at this point. On 10/19/2016 I'm seeing this patient in follow-up. He is doing well. He is sitting up on a bed and he is on 5 L of oxygen by nasal cannula. His chest x- ray still showing better pleural effusion worse on the right and the plan is to proceed with thoracentesis this morning. He is tolerating his diet. No nausea. No vomiting. No chest pain. Sternum stable clean and intact. No fever. No chills. White cell count is at 10.0 and hemoglobin is at 8.4 which is stable. The patient remains on IV Zosyn. I discussed the case with Dr. Ramos and we'll keep the Sporanox on hold for the time being due to concerns of drug interaction. The patient has had Haemophilus and Serratia in his sputum. The MEGHAN drains are still in place. MEGHAN drain #1 has put out 20 mL and # 2 has put out 80 mL of urine output is around 50 mL an hour. On 10/20/2016 I'm seeing this patient in follow-up. The patient has been weaned down to 4 L of oxygen by nasal cannula. He underwent a thoracentesis of the right lung yesterday and total of 1.6 L of pleural fluid was aspirated from the right lung. Patient is doing well. The patient is not having any major respiratory difficulties. The patient was able to breathe better following the procedure. No significant cough or sputum production. The patient has Haemophilus and consideration his sputum and the patient is still on IV Zosyn. MEGHAN drain is still in place. No chills. No fever. He is gradually increasing his oral intake. No other significant events over the past 24 hours. He is having episodes of paroxysmal atrial fibrillation and the patient is on no anti- coagulation at this point. This will be further discussed with cardiology. On 10/21/2016 the patient is being seen in follow-up. He is doing well. No specific complaints. His follow-up chest x-ray from today shows improving bibasilar pulmonary infiltrates with moderate amount of infiltration still on the right along with some residual pleural effusion. He was started on long- term anticoagulation. He is in atrial fibrillation. Is tolerating his diet. He is weak however his getting stronger and is able to sit up on a chair. MEGHAN drains are in place and the output in the 3 tubes are still active and they will be kept in place for the time being. On 10/22/2016, the patient is being seen in follow-up. He is on of getting slightly confused yet he is not agitated and, comfortable. Hemodynamically stable. No significant rest or distress. Chest x-ray findings are essentially stable with atelectatic changes and small effusion the lung bases bilaterally. MEGHAN drains are all in place. Surgery is monitoring the output and managing the MEGHAN drains. Meanwhile, the patient is being migrated and INR is subtherapeutic at 1.8. He remains in atrial fibrillation with a controlled rate. Hemoglobin is stable. Patient is tolerating his diet. No nausea. No vomiting. No abdominal pain. He has trace edema in lower extremities bilaterally. No other significant events over the past 24 hours. On 10/23/2016 the patient is being seen on the medical floor. The patient is on telemetry unit. He is doing well. A bit lethargic and on and off confused. For the most part he is comfortable. On examination, he has diminished breath sounds on the right and I suspect that is the recommendation of the pleural fluid on the right side. Meanwhile, the patient on 2 L of oxygen by nasal cannula. No breathing difficulties. MEGHAN drains are in place. He has edematous extremities. PT/INR is subtherapeutic. Hemoglobin stable at 8.4. On 10/24/2016, the patient is sitting up on a chair. Mentation is appropriate. MEGHAN drains are in place. Surgical wound site is clean and intact and dry. The patient has diminished breath sounds in the lung bases. No fever. No chills. No night sweats. No other significant events overnight. He received 2 mg of warfarin yesterday and INR is subtherapeutic at 1.2. He continues to be atrial fibrillation at the rate is controlled for now and he is hemodynamically stable. Objective - Vital Signs Vital signs: Vital Signs Temp 97.6 F 10/24/16 07:49 Pulse 80 10/24/16 09:53 Resp 17 10/24/16 07:49 BP 105/54 10/24/16 07:49 Pulse Ox 97 10/24/16 07:49 Intake & Output 10/23/16 10/24/16 10/24/16 18:59 06:59 18:59 Intake Total 960 720 480 Output Total 625 2330 Balance 335 -1610 480 Weight 115 kg Intake: IV 0 0.9 0 Oral 960 720 480 Output: Drainage 225 180 Left Lateral Chest 10 50 Medial Chest 200 75 Right Lateral Chest 15 55 Urine 400 2150 Other: Voiding Method Indwelling Catheter Indwelling Catheter Indwelling Catheter # Voids 0 # Bowel Movements 1 ABP, PAP, CO, CI - Last Documented Arterial Blood Pressure 104/50 - Exam Head exam was generally normal. There was no scleral icterus or corneal arcus. Mucous membranes were moist.Neck was supple and without jugular venous distension, thyromegaly, or carotid bruits. Carotids were easily palpable bilaterally. There was no adenopathy. Lung sounds are diminished in the lung base bilaterally especially in the right lung base. The patient has weak and poor respiratory efforts. Patient had a left-sided chest tube in place. Heart sounds are regular, positive S1-S2 and there is no significant murmurs appreciated. Sternum was stable clean and intact and the patient's sternal wound is covered with a Aquacel silver dressing. MEGHAN drains were visualized. No active drainage from the wounds.Abdominal exam revealed normal bowel sounds. The abdomen was soft, non-tender, and without masses, organomegaly, or appreciable enlargement of the abdominal aorta.Examination of the extremities revealed easily palpable radial, femoral and pedal pulses. There was no cyanosis , clubbing or edema. - Labs CBC & Chem 7: 10/23/16 06:00 10/23/16 06:00 Labs: Abnormal Lab Results - Last 24 Hours (Table) 10/23/16 10/23/16 10/24/16 Range/Units 16:17 20:36 05:54 POC Glucose (mg/dL) 124 H 147 H 101 H (75-99) mg/dL 10/24/16 Range/Units 11:27 POC Glucose (mg/dL) 126 H (75-99) mg/dL Assessment and Plan Plan: Assessment 1 status post aortic valve replacement and mitral valve repair and the patient is postop day #25 2 sternal wound dehiscence, post muscle flap, postop day #9 3 post extubation and the patient was weaned off the mechanical ventilator on 4 bilateral pleural effusion, status post thoracentesis of the right lung and evacuation of 1.6 L of pleural fluid 5 left-sided chest tube with diminished output, and the chest tube was removed yesterday 6 paroxysmal fibrillation, paroxysmal currently in sinus rhythm, on anticoagulants and the PT/INR is subtherapeutic 7 hypertension 8 hyperlipidemia 9 thyroid cancer with a previous thyroidectomy 10 osteoarthritis 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 The patient was seen by Dr. Ramos. Recommendations were treating this patient with itraconazole 100 mg by mouth twice a day. 12 Serratia marcescens and Haemophilus influenza in the sputum, currently on IV Zosyn 13 hypernatremia, improved 14 generalized weakness 15 episodes of change in mental status, possibly secondary to delirium. Plan Continue with warfarin regarding his chronic atrial fibrillation. The dose will be adjusted by cardiology. Otherwise. Is quite stable at this point. No change in mental status. MEGHAN drains are in place. CT surgery is following up this patient regarding the surgical wound drains. Patient is being involved in physical therapy. Recovery is slow yet steady.
--- NOTE | 2016-10-24 12:55 | P.PN ---
Subjective Principal diagnosis: Acute hypoxic respiratory failure requiring mechanical ventilation, present on admission. Sputum culture positive for Haemophilus influenza, serratia marcescens. Currently on Zosyn, vanco. Infectious disease following. CAT scan of the chest on 10/09/16 demonstrated dehiscence of sternal wires, an unexpected postsurgical condition related to the patient's underlying comorbidities. POD #27 aortic valve replacement, mitral valve repair, modified Frederick maze, mediastinal lymph node biopsy. POD #9 sternal exploration due to sternal debridement and wound closure with bilateral pectoralis major myocutaneous advancement flaps POD #9 placement of left chest tube for left pleural effusion POD #5 right thoracentesis for right pleural effusion with drainage of 1.5 L of dark red tinged fluid. Patient currently sitting up in a chair in no apparent distress. Left pleural chest tube has been discontinued, 3 anterior MEGHAN drains remain. Currently eating breakfast. Mildly confused, knows he is in the hospital but not sure which one, looks for the sign on the wall to tell him what year it is. Objective - Vital Signs Vital signs: Vital Signs Temp 97.6 F 10/24/16 07:49 Pulse 82 10/24/16 07:49 Resp 17 10/24/16 07:49 BP 105/54 10/24/16 07:49 Pulse Ox 97 10/24/16 07:49 Intake & Output 10/23/16 10/24/16 10/24/16 18:59 06:59 18:59 Intake Total 960 720 Output Total 625 2330 Balance 335 -1610 Weight 115 kg Intake: IV 0 0.9 0 Oral 960 720 Output: Drainage 225 180 Left Lateral Chest 10 50 Medial Chest 200 75 Right Lateral Chest 15 55 Urine 400 2150 Other: Voiding Method Indwelling Catheter Indwelling Catheter Indwelling Catheter # Voids 0 # Bowel Movements 1 ABP, PAP, CO, CI - Last Documented Arterial Blood Pressure 104/50 - Constitutional General appearance: Present: cooperative, no acute distress, obese - Respiratory Details: Lungs sounds diminished bilaterally. Respirations even, nonlabored. Currently on 2 L nasal cannula. Able to achieve 1000 mL on his incentive spirometry. No chest x-ray this morning, chest x-ray from October 22 was reviewed. - Cardiovascular Details: S1, S2 present. Irregular rate and rhythm, atrial fibrillation on telemetry. No events noted on telemetry overnight. Sternum currently stable. 3 anterior chest MEGHAN drains present draining minimal serosanguineous fluid. Heart hugger in place with patient demonstrating limited use. Bilateral lower extremity edema still present. Teds/SCDs present. - Gastrointestinal Gastrointestinal Comment(s): Abdomen soft, nontender, and nondistended, round. Active bowel sounds 4 quadrants. Tolerating diet. - Genitourinary Genitourinary Comment(s): Duong present draining clear, yellow urine. - Integumentary Integumentary Comment(s): Anterior chest incision covered with dry intact dressing - Musculoskeletal Musculoskeletal Comment(s): Able to ambulate to and from the bathroom with 3 person assist. Musculoskeletal: Present: generalized weakness, strength equal bilaterally - Psychiatric Psychiatric Comment(s): Alert and oriented 1-2, cooperative. - Allied health notes Allied health notes reviewed: nursing - Labs CBC & Chem 7: 10/23/16 06:00 10/23/16 06:00 Labs: Abnormal Lab Results - Last 24 Hours (Table) 10/23/16 10/23/16 10/23/16 Range/Units 11:56 16:17 20:36 POC Glucose (mg/dL) 133 H 124 H 147 H (75-99) mg/dL 10/24/16 Range/Units 05:54 POC Glucose (mg/dL) 101 H (75-99) mg/dL - Imaging and Cardiology Chest x-ray: image reviewed Assessment and Plan (1) Status post aortic valve replacement Status: Acute (2) Status post mitral valve repair Status: Acute (3) Acute renal failure Status: Acute (4) Neutrophilic leukocytosis Status: Acute (5) Atrial fibrillation with RVR Status: Acute (6) Histoplasmosis Status: Acute (7) Hypercholesterolemia Status: Acute (8) Hypertension Status: Acute (9) Hypothyroidism (acquired) Status: Acute (10) Obesity Status: Acute (11) Paroxysmal atrial fibrillation Status: Acute Plan: 1. Continue aspirin, Lopressor, digoxin, heparin 2. Amiodarone discontinued yesterday. 3. INR this morning 1.2, will give Coumadin today 4. Reorient patient as necessary. 5. Diabetic management per internal medicine service. 6. Strict I/O, daily weights. 7. Encourage incentive spirometry. 8. PT/OT to work with patient while hospitalized 9. Plan for discharge to rehab soon. Time with Patient: Greater than 30
[2016-10-24] MEDS: MULTIVITAMINS, THERA 1 EACH TAB PO SCH (13:24)
--- NOTE | 2016-10-24 13:27 | P.PN ---
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 From the cardiovascular standpoint overview, he seems to be stable and seems to be asymptomatic where he denies having any chest pain or discomfort. The blood pressure has been marginally low but the patient as a mentioned asymptomatic. He continues to be in atrial fibrillation was controlled heart rate. He continues to be on anticoagulation using Coumadin. The hemoglobin has been around 8 but it has been stable around this number. Objective - Vital Signs Vital signs: Vital Signs Temp 97.6 F 10/24/16 07:49 Pulse 67 10/24/16 12:00 Resp 19 10/24/16 12:00 BP 92/62 10/24/16 12:00 Pulse Ox 96 10/24/16 12:00 Intake & Output 10/23/16 10/24/16 10/24/16 18:59 06:59 18:59 Intake Total 960 720 840 Output Total 625 2330 Balance 335 -1610 840 Weight 115 kg Intake: IV 0 0.9 0 Oral 960 720 840 Output: Drainage 225 180 Left Lateral Chest 10 50 Medial Chest 200 75 Right Lateral Chest 15 55 Urine 400 2150 Other: Voiding Method Indwelling Catheter Indwelling Catheter Indwelling Catheter # Voids 0 # Bowel Movements 1 ABP, PAP, CO, CI - Last Documented Arterial Blood Pressure 104/50 - Constitutional General appearance: Present: no acute distress - Respiratory Respiratory: bilateral: diminished - Cardiovascular Rhythm: irregularly irregular - Labs CBC & Chem 7: 10/23/16 06:00 10/23/16 06:00 Labs: Abnormal Lab Results - Last 24 Hours (Table) 10/23/16 10/23/16 10/24/16 Range/Units 16:17 20:36 05:54 POC Glucose (mg/dL) 124 H 147 H 101 H (75-99) mg/dL 10/24/16 Range/Units 11:27 POC Glucose (mg/dL) 126 H (75-99) mg/dL Assessment and Plan Plan: Assessment Status post aortic valve replacement and mitral valve repair Prolonged post operation course Acute respiratory failure Chronic atrial fibrillation Multiple comorbid conditions Plan Continue the patient on the current medical treatment Continue anticoagulation with Coumadin Follow-up with the patient
[2016-10-24 16:37] LABS: Glucose,Whole Blood 97 mg/dL (75-99)
[2016-10-24] MEDS ORDERED: WARFARIN 5 MG TAB PO ONE (18:00)
--- NOTE | 2016-10-24 19:15 | US ---
EXAMINATION TYPE: US venous doppler duplex LE DATE OF EXAM: 10/24/2016 6:52 PM COMPARISON: NONE CLINICAL HISTORY: 71-year-old male R/O DVT. Bilateral leg swelling, history of right knee replacement SIDE PERFORMED: bilateral TECHNIQUE: The lower extremity deep venous system is examined utilizing real time linear array sonog woody with graded compression, doppler sonography and color-flow sonography. FINDINGS: VESSELS IMAGED: External Iliac Vein (EIV) Common Femoral Vein Deep Femoral Vein Greater Saphenous Vein * Femoral Vein Popliteal Vein Small Saphenous Vein * Proximal Calf Veins (* superficial vessels) Right Leg: Appears positive for DVT from CFV to proximal calf veins. Internal echoes seen. Woo sions deferred. Left Leg: Appears negative for DVT IMPRESSION: 1. Right lower extremity positive for extensive DVT extending from the common femoral vein down into the upper calf veins. 2. No evidence for DVT within the left lower extremity imaged from the groin to the upper calf.
[2016-10-24] MEDS: ENOXAPARIN 120 MG/0.8 ML SYRINGE SQ SCH (21:07)
[2016-10-24] MEDS: FUROSEMIDE 10 MG/ML 2 ML VIAL IV SCH (21:08)
[2016-10-24 21:45] LABS: Glucose,Whole Blood 111 mg/dL (75-99)
[2016-10-25 06:10] LABS: Glucose,Whole Blood 99 mg/dL (75-99)
[2016-10-25] MEDS: INSULIN LISPRO (humaLOG) 300 UNIT/3 ML VIAL SQ SCH ×4 (06:14→21:18)
[2016-10-25] MEDS: LEVOTHYROXINE 75 MCG TAB PO SCH (06:15)
[2016-10-25 07:20] LABS: ALT 43 U/L (21-72); AST 33 U/L (17-59); Alkaline Phosphatase 70 U/L (38-126); Anion Gap 9 mmol/L; Blood Urea Nitrogen 30 mg/dL (9-20); Calcium 7.4 mg/dL (8.4-10.2); Carbon Dioxide 23 mmol/L (22-30); Chloride 103 mmol/L (98-107); Glucose 83 mg/dL (74-99); Magnesium 2.1 mg/dL (1.6-2.3); Non-African American GFR(MDRD) >60 (>60 ml/min/1.73 sqM); Phosphorous 4.5 mg/dL (2.5-4.5); Potassium 4.3 mmol/L (3.5-5.1); Sodium 135 mmol/L (137-145); Total Bilirubin 0.9 mg/dL (0.2-1.3); Total Protein 5.2 g/dL (6.3-8.2)
[2016-10-25 07:36] LABS: INR 1.2 (<1.1); Prothrombin Time 12.2 sec (9.0-12.0)
[2016-10-25 07:48] LABS: Anisocytosis Slight; Basophils # (A) 0.1 k/uL (0-0.2); Basophils % (A) 1 %; CH 29.3; Eosinophils # (A) 0.5 k/uL (0-0.7); Eosinophils % (A) 5 %; HCT 27.6 % (39.0-53.0); HDW 3.97; HGB 8.6 gm/dL (13.0-17.5); Hypochromasia Marked; Luc # (Auto) 0.12; Luc % (Auto) 1; Lymphocytes # (A) 0.7 k/uL (1.0-4.8); Lymphocytes % (A) 7 %; MCH 29.9 pg (25.0-35.0); MCHC 31.4 g/dL (31.0-37.0); MCV 95.2 fL (80.0-100.0); Macrocytosis Slight; Mean Platelet Volume 8.8; Monocytes # (A) 0.4 k/uL (0-1.0); Monocytes % (A) 4 %; Neutrophils # (A) 7.9 k/uL (1.3-7.7); Neutrophils % (A) 81 %; Poikilocytosis Slight; RDW 17.9 % (11.5-15.5); WBC 9.8 k/uL (3.8-10.6); WBC (Perox) 9.75
--- NOTE | 2016-10-25 09:35 | P.PN ---
Subjective Principal diagnosis: Acute hypoxic respiratory failure requiring mechanical ventilation, present on admission. Sputum culture positive for Haemophilus influenza, serratia marcescens. Was on Zosyn, vanco. Infectious disease following. CAT scan of the chest on 10/09/16 demonstrated dehiscence of sternal wires, an unexpected postsurgical condition related to the patient's underlying comorbidities. POD #28 aortic valve replacement, mitral valve repair, modified Frederick maze, mediastinal lymph node biopsy. POD #10 sternal exploration due to sternal debridement and wound closure with bilateral pectoralis major myocutaneous advancement flaps POD #10 placement of left chest tube for left pleural effusion POD #6 right thoracentesis for right pleural effusion with drainage of 1.5 L of dark red tinged fluid. Patient currently sitting up in a chair in no apparent distress. 3 anterior MEGHAN drains remain. Currently eating breakfast. No current concerns or questions. Patient is more oriented today. Bilateral lower extremity ultrasound done yesterday revealed a right lower extremity DVT extending from the common femoral vein down to the upper calf veins, no DVT in the left lower extremity. Patient started on Lovenox. Objective - Vital Signs Vital signs: Vital Signs Temp 98.6 F 10/25/16 03:21 Pulse 79 10/25/16 03:21 Resp 16 10/25/16 03:21 BP 104/54 10/25/16 03:21 Pulse Ox 96 10/25/16 03:21 Intake & Output 10/24/16 10/25/16 10/25/16 18:59 06:59 18:59 Intake Total 1200 40 Output Total 450 1420 Balance 750 -1380 Weight 112.5 kg Intake: IV 40 0.9 40 Oral 1200 Output: Drainage 120 Left Lateral Chest 0 Medial Chest 5 Right Lateral Chest 115 Urine 450 1300 Other: Voiding Method Indwelling Catheter Indwelling Catheter # Bowel Movements 0 ABP, PAP, CO, CI - Last Documented Arterial Blood Pressure 104/50 - Constitutional General appearance: Present: cooperative, no acute distress, obese - Respiratory Details: Lungs sounds diminished bilaterally. Respirations even, nonlabored. Currently on 2 L nasal cannula with oxygen saturation of 96%. Able to achieve 750 mL on incentive spirometry. Effective cough. - Cardiovascular Details: S1, S2 present. Regular rate and rhythm, normal sinus rhythm on telemetry. Sternum stable. 3 anterior chest MEGHAN drains with minimal to no drainage. Heart hugger in place with patient demonstrate appropriate use. Teds/SCDs present. - Gastrointestinal Gastrointestinal Comment(s): Abdomen soft, nontender, nondistended. Active bowel sounds 4 quadrants. Positive bowel movement yesterday. Tolerating diet. - Genitourinary Genitourinary Comment(s): Duong present draining clear, yellow urine. Output 120-225 mL/h overnight. - Integumentary Integumentary Comment(s): Anterior chest incision covered with dry intact silver dressing. - Musculoskeletal Musculoskeletal: Present: generalized weakness, strength equal bilaterally - Psychiatric Psychiatric: Present: A&O x's 3, appropriate affect, intact judgment & insight - Allied health notes Allied health notes reviewed: nursing - Labs CBC & Chem 7: 10/25/16 05:31 10/25/16 05:31 Labs: Abnormal Lab Results - Last 24 Hours (Table) 10/24/16 10/24/16 10/25/16 Range/Units 11:27 21:38 05:31 RBC (4.30-5.90) m/uL Hgb (13.0-17.5) gm/dL Hct (39.0-53.0) % RDW (11.5-15.5) % Neutrophils # (1.3-7.7) k/uL Lymphocytes # (1.0-4.8) k/uL PT (9.0-12.0) sec Sodium 135 L (137-145) mmol/L BUN 30 H (9-20) mg/dL POC Glucose (mg/dL) 126 H 111 H (75-99) mg/dL Calcium 7.4 L (8.4-10.2) mg/dL Total Protein 5.2 L (6.3-8.2) g/dL Albumin 2.4 L (3.5-5.0) g/dL 10/25/16 10/25/16 Range/Units 05:31 05:31 RBC 2.90 L (4.30-5.90) m/uL Hgb 8.6 L (13.0-17.5) gm/dL Hct 27.6 L (39.0-53.0) % RDW 17.9 H (11.5-15.5) % Neutrophils # 7.9 H (1.3-7.7) k/uL Lymphocytes # 0.7 L (1.0-4.8) k/uL PT 12.2 H (9.0-12.0) sec Sodium (137-145) mmol/L BUN (9-20) mg/dL POC Glucose (mg/dL) (75-99) mg/dL Calcium (8.4-10.2) mg/dL Total Protein (6.3-8.2) g/dL Albumin (3.5-5.0) g/dL - Imaging and Cardiology Venous US: report reviewed, image reviewed Assessment and Plan (1) Status post aortic valve replacement Status: Acute (2) Status post mitral valve repair Status: Acute (3) Acute renal failure Status: Acute (4) Neutrophilic leukocytosis Status: Acute (5) Atrial fibrillation with RVR Status: Acute (6) Histoplasmosis Status: Acute (7) Hypercholesterolemia Status: Acute (8) Hypertension Status: Acute (9) Hypothyroidism (acquired) Status: Acute (10) Obesity Status: Acute (11) Paroxysmal atrial fibrillation Status: Acute (12) Deep vein thrombosis (DVT) of right lower extremity Status: Acute Plan: 1. Continue aspirin, Lopressor, digoxin. Heparin subcu DC'd, Lovenox started secondary to DVT. 2. Amiodarone discontinued 10/23 3. INR this morning 1.2, will give Coumadin 5 mg today 4. Started on Lasix 20 mg IV push twice a day 5. Diabetic management per internal medicine service. 6. Strict I/O, daily weights. 7. Encourage incentive spirometry use. 8. PT/OT to work with patient while hospitalized 9. Plan for discharge to rehab soon. Time with Patient: Greater than 30
[2016-10-25] MEDS: FUROSEMIDE 10 MG/ML 2 ML VIAL IV SCH ×2 (09:36→21:19)
[2016-10-25] MEDS: PANTOPRAZOLE 40 MG/10 ML VIAL IVP SCH (09:36)
[2016-10-25] MEDS: ENOXAPARIN 120 MG/0.8 ML SYRINGE SQ SCH ×2 (09:40→21:19)
[2016-10-25] MEDS: METOPROLOL TARTRATE 25 MG TAB PO SCH ×2 (09:41→21:19)
[2016-10-25] MEDS: ASPIRIN 81 MG CHEW PO SCH (09:41)
[2016-10-25] MEDS: DIGOXIN 125 MCG TAB PO SCH (09:42)
[2016-10-25] MEDS: IPRATROPIUM-ALBUTEROL 3 ML NEB INHALATION SCH ×4 (11:22→20:29)
[2016-10-25 11:46] LABS: Glucose,Whole Blood 107 mg/dL (75-99)
--- NOTE | 2016-10-25 12:16 | P.PN ---
Subjective Principal diagnosis: Status post mitral valve repair and aortic valve replacement. Status post open-heart surgery, respiratory failure, atrial fibrillation and CHF and sternal dehiscence, pleural effusion Patient is a status post repair of the mitral valve and also aortic valve replacement. Patient seemed to be doing better. Getting stronger every day. Being followed on the telemetry unit today. Continues to be in atrial fibrillation with a controlled ventricular response. He seems to be much more alert. Blood pressure today 118/60 with a heart rate in the 70s. 95% on 2 L of oxygen. He received 1 mg of Coumadin yesterday, INR today is 1.2, hemoglobin 8.4. Magnesium level 2.3. We will give the patient 2 mg of Coumadin today. Objective - Vital Signs Vital signs: Vital Signs Temp 98.4 F 10/25/16 08:00 Pulse 82 10/25/16 08:00 Resp 16 10/25/16 08:00 BP 118/59 10/25/16 08:00 Pulse Ox 95 10/25/16 08:00 Intake & Output 10/24/16 10/25/16 10/25/16 18:59 06:59 18:59 Intake Total 1200 40 Output Total 450 1420 2375 Balance 750 -1380 -2375 Weight 112.5 kg Intake: IV 40 0.9 40 Oral 1200 Output: Drainage 120 125 Left Lateral Chest 0 100 Medial Chest 5 0 Right Lateral Chest 115 25 Urine 450 1300 2250 Duong Catheter 750 Other: Voiding Method Indwelling Catheter Indwelling Catheter Indwelling Catheter # Bowel Movements 0 0 ABP, PAP, CO, CI - Last Documented Arterial Blood Pressure 104/50 - Exam GENERAL EXAM: Patient is extubated. He is alert, awake. He is still weak and frail HEENT: Normocephalic. Normal reaction of pupils, equal size, normal range of extraocular motion. No erythema or exudates in the throat. NECK: No masses, no nuchal rigidity. CHEST: No chest wall deformity. LUNGS: [Diminished breath sounds, scattered rhonchi HEART: Irregular heart rhythm ABDOMEN: No hepatosplenomegaly, normal bowel sounds, no guarding or rigidity. SKIN: No rashes CENTRAL NERVOUS SYSTEM: Sedated EXTREMITIES: No cyanosis, clubbing or edema. - Labs CBC & Chem 7: 10/25/16 05:31 10/25/16 05:31 Labs: Abnormal Lab Results - Last 24 Hours (Table) 10/24/16 10/25/16 10/25/16 Range/Units 21:38 05:31 05:31 RBC (4.30-5.90) m/uL Hgb (13.0-17.5) gm/dL Hct (39.0-53.0) % RDW (11.5-15.5) % Neutrophils # (1.3-7.7) k/uL Lymphocytes # (1.0-4.8) k/uL PT 12.2 H (9.0-12.0) sec Sodium 135 L (137-145) mmol/L BUN 30 H (9-20) mg/dL POC Glucose (mg/dL) 111 H (75-99) mg/dL Calcium 7.4 L (8.4-10.2) mg/dL Total Protein 5.2 L (6.3-8.2) g/dL Albumin 2.4 L (3.5-5.0) g/dL 10/25/16 10/25/16 Range/Units 05:31 11:41 RBC 2.90 L (4.30-5.90) m/uL Hgb 8.6 L (13.0-17.5) gm/dL Hct 27.6 L (39.0-53.0) % RDW 17.9 H (11.5-15.5) % Neutrophils # 7.9 H (1.3-7.7) k/uL Lymphocytes # 0.7 L (1.0-4.8) k/uL PT (9.0-12.0) sec Sodium (137-145) mmol/L BUN (9-20) mg/dL POC Glucose (mg/dL) 107 H (75-99) mg/dL Calcium (8.4-10.2) mg/dL Total Protein (6.3-8.2) g/dL Albumin (3.5-5.0) g/dL Assessment and Plan (1) Paroxysmal a-fib Status: Acute (2) Status post aortic valve replacement Status: Acute (3) Status post mitral valve repair Status: Acute (4) Congestive heart failure due to valvular disease Status: Acute (5) Histoplasmosis Status: Acute (6) Hypercholesterolemia Status: Acute (7) Hypertension Status: Acute (8) Hypothyroidism (acquired) Status: Acute Plan: Patient seems to be progressing well overall. Appetite has improved. Breathing is much more stable. We will give him 2 mg of Coumadin today, check daily PT/INRs. DNP note has been reviewed, I agree with a documented findings and plan of care. Patient was seen and examined.
[2016-10-25] MEDS: MULTIVITAMINS, THERA 1 EACH TAB PO SCH (12:21)
--- NOTE | 2016-10-25 12:52 | P.PN ---
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 This is a 61-year-old male patient was undergone a cardiac surgery which involved aVR with mitral valve repair on 09/29/2016. The patient was discharged home on 10/04/2016. Following that the patient was readmitted to the hospital because of increased shortness of breath, acute respiratory failure , cough, syncope and sternal wound dehiscence. The patient was seen by cardiology thoracic surgery and he was taken back to the operating room where he underwent a closure of the sternal wound with a muscle flap on 10/15/2016. The patient was extubated off the mechanical ventilator on 10/16/2016. He initially had difficulties with swallowing yet he is currently doing better. He developed a right-sided pleural effusion he had an attempt for thoracentesis was done yesterday by Dr. Armando and this failed. Apparently there was no adequate fluid drainage during the procedure. As such the procedure was aborted. The patient has a left-sided chest tube in place which is draining approximately less than 100 mL over the past 24 hours and the plan is to take of the chest tube. He is actually taking well at 6 L/m nasal cannula. His is or 82. He is hemodynamically stable. He is pulling approximately 500 on the incentive spirometer. The patient has MEGHAN drains on his sternal wound a total of 3 and the drainage is not active at this point. The patient is hemodynamically stable on no pressors. His CODE STATUS is full at this point. On 10/19/2016 I'm seeing this patient in follow-up. He is doing well. He is sitting up on a bed and he is on 5 L of oxygen by nasal cannula. His chest x- ray still showing better pleural effusion worse on the right and the plan is to proceed with thoracentesis this morning. He is tolerating his diet. No nausea. No vomiting. No chest pain. Sternum stable clean and intact. No fever. No chills. White cell count is at 10.0 and hemoglobin is at 8.4 which is stable. The patient remains on IV Zosyn. I discussed the case with Dr. Ramos and we'll keep the Sporanox on hold for the time being due to concerns of drug interaction. The patient has had Haemophilus and Serratia in his sputum. The MEGHAN drains are still in place. MEGHAN drain #1 has put out 20 mL and # 2 has put out 80 mL of urine output is around 50 mL an hour. On 10/20/2016 I'm seeing this patient in follow-up. The patient has been weaned down to 4 L of oxygen by nasal cannula. He underwent a thoracentesis of the right lung yesterday and total of 1.6 L of pleural fluid was aspirated from the right lung. Patient is doing well. The patient is not having any major respiratory difficulties. The patient was able to breathe better following the procedure. No significant cough or sputum production. The patient has Haemophilus and consideration his sputum and the patient is still on IV Zosyn. MEGHAN drain is still in place. No chills. No fever. He is gradually increasing his oral intake. No other significant events over the past 24 hours. He is having episodes of paroxysmal atrial fibrillation and the patient is on no anti- coagulation at this point. This will be further discussed with cardiology. On 10/21/2016 the patient is being seen in follow-up. He is doing well. No specific complaints. His follow-up chest x-ray from today shows improving bibasilar pulmonary infiltrates with moderate amount of infiltration still on the right along with some residual pleural effusion. He was started on long- term anticoagulation. He is in atrial fibrillation. Is tolerating his diet. He is weak however his getting stronger and is able to sit up on a chair. MEGHAN drains are in place and the output in the 3 tubes are still active and they will be kept in place for the time being. On 10/22/2016, the patient is being seen in follow-up. He is on of getting slightly confused yet he is not agitated and, comfortable. Hemodynamically stable. No significant rest or distress. Chest x-ray findings are essentially stable with atelectatic changes and small effusion the lung bases bilaterally. MEGHAN drains are all in place. Surgery is monitoring the output and managing the MEGHAN drains. Meanwhile, the patient is being migrated and INR is subtherapeutic at 1.8. He remains in atrial fibrillation with a controlled rate. Hemoglobin is stable. Patient is tolerating his diet. No nausea. No vomiting. No abdominal pain. He has trace edema in lower extremities bilaterally. No other significant events over the past 24 hours. On 10/23/2016 the patient is being seen on the medical floor. The patient is on telemetry unit. He is doing well. A bit lethargic and on and off confused. For the most part he is comfortable. On examination, he has diminished breath sounds on the right and I suspect that is the recommendation of the pleural fluid on the right side. Meanwhile, the patient on 2 L of oxygen by nasal cannula. No breathing difficulties. MEGHAN drains are in place. He has edematous extremities. PT/INR is subtherapeutic. Hemoglobin stable at 8.4. On 10/24/2016, the patient is sitting up on a chair. Mentation is appropriate. MEGHAN drains are in place. Surgical wound site is clean and intact and dry. The patient has diminished breath sounds in the lung bases. No fever. No chills. No night sweats. No other significant events overnight. He received 2 mg of warfarin yesterday and INR is subtherapeutic at 1.2. He continues to be atrial fibrillation at the rate is controlled for now and he is hemodynamically stable. Patient was reevaluated today on 10/25/2016, seems to be doing relatively well, sitting up in the chair, seems to be very appropriate, in no form of respiratory distress, surgical wound seems to be clean and intact, patient is denying any shortness of breath no cough no wheezing. He has diminished breath sounds at the bases, CBC was relatively normal except for hemoglobin of 8.6. Electrolytes are normal renal profile is relatively normal INR is 1.2 lashes subtherapeutic, his last chest x-ray was on 10/22/2016. Objective - Vital Signs Vital signs: Vital Signs Temp 98.4 F 10/25/16 08:00 Pulse 82 10/25/16 08:00 Resp 16 10/25/16 08:00 BP 118/59 10/25/16 08:00 Pulse Ox 95 10/25/16 08:00 Intake & Output 10/24/16 10/25/16 10/25/16 18:59 06:59 18:59 Intake Total 1200 40 Output Total 450 1420 2375 Balance 597 -8807 -8506 Weight 112.5 kg Intake: IV 40 0.9 40 Oral 1200 Output: Drainage 120 125 Left Lateral Chest 0 100 Medial Chest 5 0 Right Lateral Chest 115 25 Urine 450 1300 2250 Duong Catheter 750 Other: Voiding Method Indwelling Catheter Indwelling Catheter Indwelling Catheter # Bowel Movements 0 0 ABP, PAP, CO, CI - Last Documented Arterial Blood Pressure 104/50 - Exam Head exam was generally normal. There was no scleral icterus or corneal arcus. Mucous membranes were moist.Neck was supple and without jugular venous distension, thyromegaly, or carotid bruits. Carotids were easily palpable bilaterally. There was no adenopathy. Lung sounds are diminished in the lung base bilaterally especially in the right lung base. The patient has weak and poor respiratory efforts. Patient had a left-sided chest tube in place. Heart sounds are regular, positive S1-S2 and there is no significant murmurs appreciated. Sternum was stable clean and intact and the patient's sternal wound is covered with a Aquacel silver dressing. MEGHAN drains were visualized. No active drainage from the wounds.Abdominal exam revealed normal bowel sounds. The abdomen was soft, non-tender, and without masses, organomegaly, or appreciable enlargement of the abdominal aorta.Examination of the extremities revealed easily palpable radial, femoral and pedal pulses. There was no cyanosis , clubbing or edema. - Labs CBC & Chem 7: 10/25/16 05:31 10/25/16 05:31 Labs: Abnormal Lab Results - Last 24 Hours (Table) 10/24/16 10/25/16 10/25/16 Range/Units 21:38 05:31 05:31 RBC (4.30-5.90) m/uL Hgb (13.0-17.5) gm/dL Hct (39.0-53.0) % RDW (11.5-15.5) % Neutrophils # (1.3-7.7) k/uL Lymphocytes # (1.0-4.8) k/uL PT 12.2 H (9.0-12.0) sec Sodium 135 L (137-145) mmol/L BUN 30 H (9-20) mg/dL POC Glucose (mg/dL) 111 H (75-99) mg/dL Calcium 7.4 L (8.4-10.2) mg/dL Total Protein 5.2 L (6.3-8.2) g/dL Albumin 2.4 L (3.5-5.0) g/dL 10/25/16 10/25/16 Range/Units 05:31 11:41 RBC 2.90 L (4.30-5.90) m/uL Hgb 8.6 L (13.0-17.5) gm/dL Hct 27.6 L (39.0-53.0) % RDW 17.9 H (11.5-15.5) % Neutrophils # 7.9 H (1.3-7.7) k/uL Lymphocytes # 0.7 L (1.0-4.8) k/uL PT (9.0-12.0) sec Sodium (137-145) mmol/L BUN (9-20) mg/dL POC Glucose (mg/dL) 107 H (75-99) mg/dL Calcium (8.4-10.2) mg/dL Total Protein (6.3-8.2) g/dL Albumin (3.5-5.0) g/dL Assessment and Plan Plan: 1 status post aortic valve replacement and mitral valve repair and the patient is postop day # 26 2 sternal wound dehiscence, post muscle flap, postop day # 10 3 post extubation and the patient was weaned off the mechanical ventilator on 4 bilateral pleural effusion, status post thoracentesis of the right lung and evacuation of 1.6 L of pleural fluid 5 left-sided chest tube with diminished output, and the chest tube was removed yesterday 6 paroxysmal fibrillation, paroxysmal currently in sinus rhythm, on anticoagulants and the PT/INR is subtherapeutic 7 hypertension 8 hyperlipidemia 9 thyroid cancer with a previous thyroidectomy 10 osteoarthritis 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 The patient was seen by Dr. Ramos. Recommendations were treating this patient with itraconazole 100 mg by mouth twice a day. 12 Serratia marcescens and Haemophilus influenza in the sputum, currently on IV Zosyn 13 hypernatremia, improved 14 generalized weakness 15 episodes of change in mental status, possibly secondary to delirium. Plan Continue with warfarin regarding his chronic atrial fibrillation. The dose will be adjusted by cardiology. Otherwise. Is quite stable at this point. No change in mental status. MEGHAN drains are in place. CT surgery is following up this patient regarding the surgical wound drains. Consider discharge planning eventually to a rehab facility. Continue present supportive care measures, will continue to follow. Time with Patient: Less than 30
[2016-10-25 16:50] LABS: Glucose,Whole Blood 104 mg/dL (75-99)
[2016-10-25] MEDS ORDERED: WARFARIN 5 MG TAB PO ONE (18:00)
--- NOTE | 2016-10-25 20:02 | P.PN ---
Subjective Principal diagnosis: Respiratory failure This is a 71-year-old male who came in the hospital on September 23 and underwent a JAYDE and heart catheterization showing a ruptured chordae tendonae, mitral regurgitation, moderate pulmonary hypertension, with history of paroxysmal atrial fibrillation and heart failure. 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 With this the patient was initiated to itraconazole. He however developed atrial fibrillation. Because of this he was initiated to amiodarone. The dose of itraconazole was reduced by 50%. There is no evidence of any ulcerations of the QT interval while he was in hospital. He eventually was discharged home. It is related that he was not able to obtain the itraconazole. In this is going to be addressed in the coming days. However the brought him to the emergency room feeling very short of breath. He was having abdominal distention with increasing shortness of breath. Through his stay in emergency center he continues to feel more more short of breath. He then developed respiratory failure which required intubation sedation mechanical ventilation. Over the following days he is improved was extubated in his continue to improve. His extensive edema has improved. Especially the massive abdominal edema that he was having. Extremity edema is also improved. He is awake and interactive is improving but is somewhat tired today from being up in the chair Objective - Vital Signs Vital signs: Vital Signs Temp 98.4 F 10/25/16 16:00 Pulse 77 10/25/16 16:00 Resp 16 10/25/16 16:00 BP 110/59 10/25/16 16:00 Pulse Ox 98 10/25/16 16:00 Intake & Output 10/25/16 10/25/16 10/26/16 06:59 18:59 06:59 Intake Total 40 480.20 Output Total 1420 3390 Balance -1380 -2909.80 Weight 112.5 kg 112.5 kg Intake: IV 40 0.20 0.9 40 0.20 Oral 480 Tube Feeding 0 Output: Drainage 120 240 Left Lateral Chest 0 140 Medial Chest 5 0 Right Lateral Chest 115 100 Urine 1300 3000 Duong Catheter 750 Post Void Residual 150 Other: Voiding Method Indwelling Catheter Incontinent # Voids 1 # Bowel Movements 0 ABP, PAP, CO, CI - Last Documented Arterial Blood Pressure 104/50 - Exam This is a 71-year-old male. comfortable HEENT: Head is atraumatic, normocephalic. Pupils equal, round. Sclerae is anicteric. Conjunctiva slightly pale. Mucous membranes of the mouth are moist. No thrush noted. NECK: Supple. No JVD. No lymphadenopathy. No thyromegaly. LUNGS: There is symmetrical air entry. There are bibasal crackles. No significant bronchial sounds. HEART: Irregular with no no murmur Dressing on sternal wound with no breakthrough bleeding or drainage. Right sided pleural chest tube in place. ABDOMEN: Distinctly distended. Few bowel sounds are noted. Organomegaly is not detected. EXTREMITIES: +1 bilateral pedal edema. No calf tenderness. ORLIN hose in place. NEUROLOGICAL: Awake and interactive hand pharmacy service associate is much stronger today. Voice is stronger. Mentation is clear. Skin :patient has an extensive dressing to the chest where there was difficulty with the dehiscence. - Labs CBC & Chem 7: 10/25/16 05:31 10/25/16 05:31 Labs: Abnormal Lab Results - Last 24 Hours (Table) 10/24/16 10/25/16 10/25/16 Range/Units 21:38 05:31 05:31 RBC (4.30-5.90) m/uL Hgb (13.0-17.5) gm/dL Hct (39.0-53.0) % RDW (11.5-15.5) % Neutrophils # (1.3-7.7) k/uL Lymphocytes # (1.0-4.8) k/uL PT 12.2 H (9.0-12.0) sec Sodium 135 L (137-145) mmol/L BUN 30 H (9-20) mg/dL POC Glucose (mg/dL) 111 H (75-99) mg/dL Calcium 7.4 L (8.4-10.2) mg/dL Total Protein 5.2 L (6.3-8.2) g/dL Albumin 2.4 L (3.5-5.0) g/dL 10/25/16 10/25/16 10/25/16 Range/Units 05:31 11:41 16:48 RBC 2.90 L (4.30-5.90) m/uL Hgb 8.6 L (13.0-17.5) gm/dL Hct 27.6 L (39.0-53.0) % RDW 17.9 H (11.5-15.5) % Neutrophils # 7.9 H (1.3-7.7) k/uL Lymphocytes # 0.7 L (1.0-4.8) k/uL PT (9.0-12.0) sec Sodium (137-145) mmol/L BUN (9-20) mg/dL POC Glucose (mg/dL) 107 H 104 H (75-99) mg/dL Calcium (8.4-10.2) mg/dL Total Protein (6.3-8.2) g/dL Albumin (3.5-5.0) g/dL Laboratory Results WBC 9.8 k/uL (3.8-10.6) 10/25/16 05:31 RBC 2.90 m/uL (4.30-5.90) L 10/25/16 05:31 Hgb 8.6 gm/dL (13.0-17.5) L 10/25/16 05:31 Hct 27.6 % (39.0-53.0) L 10/25/16 05:31 MCV 95.2 fL (80.0-100.0) 10/25/16 05:31 MCH 29.9 pg (25.0-35.0) 10/25/16 05:31 MCHC 31.4 g/dL (31.0-37.0) 10/25/16 05:31 RDW 17.9 % (11.5-15.5) H 10/25/16 05:31 Plt Count 234 k/uL (150-450) 10/25/16 05:31 Neutrophils % 81 % 10/25/16 05:31 Neutrophils % (Manual) 85.5 % 10/08/16 04:20 Band Neutrophils % 0.5 % 10/08/16 04:20 Lymphocytes % 7 % 10/25/16 05:31 Lymphocytes % (Manual) 5.5 % 10/08/16 04:20 Monocytes % 4 % 10/25/16 05:31 Monocytes % (Manual) 4.0 % 10/08/16 04:20 Eosinophils % 5 % 10/25/16 05:31 Eosinophils % (Manual) 3.0 % 10/08/16 04:20 Basophils % 1 % 10/25/16 05:31 Metamyelocytes % 1.0 % 10/08/16 04:20 Myelocytes % 0.5 % 10/08/16 04:20 Neutrophils # 7.9 k/uL (1.3-7.7) H 10/25/16 05:31 Neutrophils # (Manual) 16.2 k/uL (1.3-7.7) H 10/08/16 04:20 Lymphocytes # 0.7 k/uL (1.0-4.8) L 10/25/16 05:31 Lymphocytes # (Manual) 1.0 k/uL (1.0-4.8) 10/08/16 04:20 Monocytes # 0.4 k/uL (0-1.0) 10/25/16 05:31 Monocytes # (Manual) 0.8 k/uL (0-1.0) 10/08/16 04:20 Eosinophils # 0.5 k/uL (0-0.7) 10/25/16 05:31 Eosinophils # (Manual) 0.6 k/uL (0-0.7) 10/08/16 04:20 Basophils # 0.1 k/uL (0-0.2) 10/25/16 05:31 Nucleated RBCs 0 /100 WBC (0-0) 10/08/16 04:20 Manual Slide Review Performed 10/08/16 04:20 Large Platelets Present 10/06/16 21:00 Polychromasia Present 10/08/16 04:20 Hypochromasia Marked 10/25/16 05:31 Poikilocytosis Slight 10/25/16 05:31 Poikilocytosis (manual Present 10/08/16 04:20 Anisocytosis Slight 10/25/16 05:31 Macrocytosis Slight 10/25/16 05:31 Ovalocytes Present 10/06/16 21:00 PT 12.2 sec (9.0-12.0) H 10/25/16 05:31 INR 1.2 (<1.1) 10/25/16 05:31 APTT 28.1 sec (22.0-30.0) 10/22/16 05:00 D-Dimer 6.31 mg/L FEU (<0.60) H 10/06/16 21:00 Sample Site [place] 10/16/16 04:45 ABG pH 7.46 (7.35-7.45) H 10/16/16 04:45 ABG pCO2 41 mmHg (35-45) 10/16/16 04:45 ABG pO2 101 mmHg (83-108) 10/16/16 04:45 ABG HCO3 29 mmol/L (21-25) H 10/16/16 04:45 ABG Total CO2 30 mmol/L (19-24) H 10/16/16 04:45 ABG O2 Saturation 98.0 % (94-97) H 10/16/16 04:45 ABG Base Excess 5.3 mmol/L 10/16/16 04:45 FiO2 50 % 10/16/16 04:45 Sodium 135 mmol/L (137-145) L 10/25/16 05:31 Potassium 4.3 mmol/L (3.5-5.1) 10/25/16 05:31 Chloride 103 mmol/L (98-107) 10/25/16 05:31 Carbon Dioxide 23 mmol/L (22-30) 10/25/16 05:31 Anion Gap 9 mmol/L 10/25/16 05:31 BUN 30 mg/dL (9-20) H 10/25/16 05:31 Creatinine 1.05 mg/dL (0.66-1.25) 10/25/16 05:31 Est GFR (MDRD) Af Amer >60 (>60 ml/min/1.73 sqM) 10/25/16 05:31 Est GFR (MDRD) Non-Af >60 (>60 ml/min/1.73 sqM) 10/25/16 05:31 Glucose 83 mg/dL (74-99) 10/25/16 05:31 POC Glucose (mg/dL) 104 mg/dL (75-99) H 10/25/16 16:48 POC Glu Hr Representative Dany Kincaid 10/25/16 16:[address] Glu mg/dL 120 mg/dL 10/07/16 05:18 Hemoglobin A1c 5.8 % (4.2-6.1) 10/07/16 05:18 Plasma Lactic Acid Samir 1.0 mmol/L (0.7-2.0) 10/07/16 05:18 Calcium 7.4 mg/dL (8.4-10.2) L 10/25/16 05:31 Ionized Calcium Guille 4.4 mg/dL (4.5-5.3) L 10/15/16 05:00 Phosphorus 4.5 mg/dL (2.5-4.5) 10/25/16 05:31 Magnesium 2.1 mg/dL (1.6-2.3) 10/25/16 05:31 Total Bilirubin 0.9 mg/dL (0.2-1.3) 10/25/16 05:31 AST 33 U/L (17-59) 10/25/16 05:31 ALT 43 U/L (21-72) 10/25/16 05:31 Alkaline Phosphatase 70 U/L (38-126) 10/25/16 05:31 Total Creatine Kinase 736 U/L (55-170) H 10/06/16 09:50 CK-MB (CK-2) 7.2 ng/mL (0.0-2.4) H* 10/06/16 09:50 CK-MB (CK-2) Rel Index 1.0 10/06/16 09:50 Troponin I 1.510 ng/mL (0.000-0.034) H* 10/06/16 09:50 NT-Pro-B Natriuret Pep 6520 pg/mL 10/06/16 09:50 Total Protein 5.2 g/dL (6.3-8.2) L 10/25/16 05:31 Albumin 2.4 g/dL (3.5-5.0) L 10/25/16 05:31 TSH 49.300 mIU/L (0.465-4.680) H 10/21/16 05:15 Free T4 1.05 ng/dL (0.78-2.19) 10/21/16 05:15 Urine Color Dark Yellow 10/06/16 18:30 Urine Appearance Cloudy (Clear) 10/06/16 18:30 Urine pH 5.0 (5.0-8.0) 10/06/16 18:30 Ur Specific [place] 1.018 (1.001-1.035) 10/06/16 18:30 Urine Protein Trace (Negative) H 10/06/16 18:30 Urine Glucose (UA) Negative (Negative) 10/06/16 18:30 Urine Ketones Negative (Negative) 10/06/16 18:30 Urine Blood Negative (Negative) 10/06/16 18:30 Urine Nitrite Negative (Negative) 10/06/16 18:30 Urine Bilirubin 1+ (Negative) H 10/06/16 18:30 Urine Urobilinogen 4.0 mg/dL (<2.0) 10/06/16 18:30 Ur Leukocyte Esterase Negative (Negative) 10/06/16 18:30 Urine WBC 10 /hpf (0-5) H 10/06/16 18:30 Ur Squamous Epith Cells 2 /hpf (0-4) 10/06/16 18:30 Calcium Oxalate Crystal Occasional /hpf (None) H 10/06/16 18:30 Amorphous Sediment Occasional /hpf (None) H 10/06/16 18:30 Hyaline Casts 79 /lpf (0-2) H 10/06/16 18:30 Urine Mucus Rare /hpf (None) H 10/06/16 18:30 Vancomycin Trough 15.0 ug/mL 10/17/16 04:10 Digoxin 0.9 ng/mL 10/17/16 20:36 Blood Type O Positive 10/14/16 13:52 Blood Type Recheck No 10/14/16 13:52 Antibody Screen NEGATIVE 10/14/16 13:52 Crossmatch See Detail 10/14/16 13:52 Transfuse Platelets 10/15/16 10/14/16 13:52 Spec Expiration Date 10/17/2016235110/14/16 13:52 Assessment and Plan (1) Acute respiratory failure Narrative/Plan: 71-year-old male with history of thyroid cancer recently was hospitalized at which point in time was having difficulties with congestive heart failure. He was noted evidence of aortic valve insufficiency and mitral valve regurgitation. There is also some lymphadenopathy noted within the chest. As he was taken to the operating room and aortic valve replacement occurred as well as mitral valve repair. Biopsy of mediastinal lymph nodes also occurred. 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 Patient was initiated to itraconazole. He however developed atrial fibrillation and was placed on amiodarone and the itraconazole dose was reduced. Upon discharge he has not been able to continue the itraconazole. However is only been home for a very short period of time we developed the progressive shortness of breath. At admission he has extensive edema in his abdominal cavity as well as evidence of congestive heart failure. Concerns to pneumonia given his significant leukocytosis and antibiotic therapy was begun with piperacillin tazobactam and vancomycin. Sputum culture with Haemophilus and Serratia resistant to Unasyn susceptible to Zosyn. We Will Continue Zosyn, Ongoing aggressive supportive care is continuing Cardiothoracic surgery is following after the reconstruction of the sternum, cultures are negative so far. No evidence of any infection Patient had extensive leukocytosis at admission. This is now improved. Zosyn antibiotic therapy is discontinued. Fortunately the sternum cultures are all negative and no evidence of deep infection of the sternum at this time. He is doing well off of antibiotic therapy has being monitored. Encouraged for his high protein diet to help his healing Status: Acute (2) Status post aortic valve replacement Status: Acute (3) Status post mitral valve repair Status: Acute (4) Histoplasmosis Status: Acute
[2016-10-25 20:34] LABS: Glucose,Whole Blood 101 mg/dL (75-99)
[2016-10-26 02:24] LABS: Glucose,Whole Blood 93 mg/dL (75-99)
[2016-10-26 05:43] LABS: Glucose,Whole Blood 88 mg/dL (75-99)
[2016-10-26 06:55] LABS: Anisocytosis Slight; HCT 27.9 % (39.0-53.0); HDW 4.06; HGB 8.5 gm/dL (13.0-17.5); Hypochromasia Marked; MCH 28.6 pg (25.0-35.0); MCHC 30.3 g/dL (31.0-37.0); MCV 94.4 fL (80.0-100.0); Mean Platelet Volume 7.7; Poikilocytosis Moderate; RBC 2.96 m/uL (4.30-5.90); RDW 17.7 % (11.5-15.5); WBC 9.6 k/uL (3.8-10.6)
[2016-10-26 07:03] LABS: INR 1.3 (<1.1); Prothrombin Time 12.9 sec (9.0-12.0)
[2016-10-26 07:10] LABS: Anion Gap 7 mmol/L; Blood Urea Nitrogen 32 mg/dL (9-20); Calcium 7.4 mg/dL (8.4-10.2); Carbon Dioxide 24 mmol/L (22-30); Chloride 101 mmol/L (98-107); Glucose 78 mg/dL (74-99); Non-African American GFR(MDRD) >60 (>60 ml/min/1.73 sqM); Potassium 4.1 mmol/L (3.5-5.1); Sodium 132 mmol/L (137-145)
[2016-10-26] MEDS: LEVOTHYROXINE 75 MCG TAB PO SCH (07:11)
[2016-10-26] MEDS: INSULIN LISPRO (humaLOG) 300 UNIT/3 ML VIAL SQ SCH ×4 (07:34→21:32)
[2016-10-26] MEDS: IPRATROPIUM-ALBUTEROL 3 ML NEB INHALATION SCH ×5 (07:55→18:56)
[2016-10-26] MEDS: METOPROLOL TARTRATE 25 MG TAB PO SCH ×2 (09:30→21:32)
[2016-10-26] MEDS: FUROSEMIDE 10 MG/ML 2 ML VIAL IV SCH ×2 (09:30→21:32)
[2016-10-26] MEDS: DIGOXIN 125 MCG TAB PO SCH (09:30)
[2016-10-26] MEDS: ASPIRIN 81 MG CHEW PO SCH (09:30)
[2016-10-26] MEDS: PANTOPRAZOLE 40 MG/10 ML VIAL IVP SCH (09:31)
[2016-10-26] MEDS: ENOXAPARIN 120 MG/0.8 ML SYRINGE SQ SCH ×2 (09:31→21:31)
[2016-10-26 11:13] VITALS: BMI 35.2
[2016-10-26 12:00] LABS: Glucose,Whole Blood 104 mg/dL (75-99)
[2016-10-26] MEDS: MULTIVITAMINS, THERA 1 EACH TAB PO SCH (12:17)
--- NOTE | 2016-10-26 13:25 | P.PN ---
Subjective Principal diagnosis: Acute hypoxic respiratory failure requiring mechanical ventilation, present on admission. Sputum culture positive for Haemophilus influenza, serratia marcescens. Was on Zosyn, vanco. Infectious disease following. CAT scan of the chest on 10/09/16 demonstrated dehiscence of sternal wires, an unexpected postsurgical condition related to the patient's underlying comorbidities. POD #29 aortic valve replacement, mitral valve repair, modified Frederick maze, mediastinal lymph node biopsy. POD #11 sternal exploration due to sternal debridement and wound closure with bilateral pectoralis major myocutaneous advancement flaps POD #11 placement of left chest tube for left pleural effusion POD #7 right thoracentesis for right pleural effusion with drainage of 1.5 L of dark red tinged fluid. Patient currently sitting up in a chair in no apparent distress. 3 anterior MEGHAN drains remain. No current concerns or questions. at bedside, concerned about rehab placement, all questions answered satisfactorily. Bilateral lower extremity ultrasound done, revealed a right lower extremity DVT extending from the common femoral vein down to the upper calf veins, no DVT in the left lower extremity. Patient started on Lovenox. Objective - Vital Signs Vital signs: Vital Signs Temp 97 F L 10/26/16 12:00 Pulse 72 10/26/16 12:00 Resp 18 10/26/16 12:00 BP 91/53 10/26/16 12:00 Pulse Ox 93 L 10/26/16 12:00 Intake & Output 10/25/16 10/26/16 10/26/16 18:59 06:59 18:59 Intake Total 480.20 120 Output Total 3390 100 101 Balance -2909.80 20 -101 Weight 112.5 kg 108.2 kg 108.2 kg Intake: IV 0.20 0.9 0.20 Oral 480 120 Tube Feeding 0 0 Output: Drainage 240 100 100 Left Lateral Chest 140 0 0 Medial Chest 0 0 0 Right Lateral Chest 100 100 100 Urine 3000 Duong Catheter 750 Post Void Residual 150 Stool 1 Other: Voiding Method Incontinent Incontinent Bedside Commode Urinal Incontinent # Voids 1 1 1 # Bowel Movements 0 ABP, PAP, CO, CI - Last Documented Arterial Blood Pressure 104/50 - Constitutional General appearance: Present: cooperative, no acute distress, obese - Respiratory Details: Lungs sounds Ms. bilaterally. Respiratory even, nonlabored. Patient remains on room air. 2 750 mL on his incentive's premature. Effective cough. - Cardiovascular Details: S1, S2 present. Irregular rate and rhythm, atrial fibrillation on telemetry. Sternum stable. Heart hugger in place with patient demonstrating appropriate use. Teds/SCDs present. - Gastrointestinal Gastrointestinal Comment(s): Abdomen soft, nontender, nondistended. Active bowel sounds 4 quadrants. Tolerating diet. Positive bowel movement this morning. - Genitourinary Genitourinary Comment(s): Patient continues to void clear, yellow urine. - Integumentary Integumentary Comment(s): Anterior chest incision well approximated with intact yoli. - Musculoskeletal Musculoskeletal: Present: generalized weakness, strength equal bilaterally - Psychiatric Psychiatric: Present: A&O x's 3, appropriate affect, intact judgment & insight - Allied health notes Allied health notes reviewed: nursing - Labs CBC & Chem 7: 10/26/16 05:31 10/26/16 05:31 Labs: Abnormal Lab Results - Last 24 Hours (Table) 10/25/16 10/25/16 10/26/16 Range/Units 16:48 20:32 05:31 RBC (4.30-5.90) m/uL Hgb (13.0-17.5) gm/dL Hct (39.0-53.0) % MCHC (31.0-37.0) g/dL RDW (11.5-15.5) % PT 12.9 H (9.0-12.0) sec Sodium (137-145) mmol/L BUN (9-20) mg/dL POC Glucose (mg/dL) 104 H 101 H (75-99) mg/dL Calcium (8.4-10.2) mg/dL 10/26/16 10/26/16 10/26/16 Range/Units 05:31 05:31 11:51 RBC 2.96 L (4.30-5.90) m/uL Hgb 8.5 L (13.0-17.5) gm/dL Hct 27.9 L (39.0-53.0) % MCHC 30.3 L (31.0-37.0) g/dL RDW 17.7 H (11.5-15.5) % PT (9.0-12.0) sec Sodium 132 L (137-145) mmol/L BUN 32 H (9-20) mg/dL POC Glucose (mg/dL) 104 H (75-99) mg/dL Calcium 7.4 L (8.4-10.2) mg/dL Assessment and Plan (1) Status post aortic valve replacement Status: Acute (2) Status post mitral valve repair Status: Acute (3) Acute renal failure Status: Acute (4) Neutrophilic leukocytosis Status: Acute (5) Atrial fibrillation with RVR Status: Acute (6) Histoplasmosis Status: Acute (7) Hypercholesterolemia Status: Acute (8) Hypertension Status: Acute (9) Hypothyroidism (acquired) Status: Acute (10) Obesity Status: Acute (11) Paroxysmal atrial fibrillation Status: Acute (12) Deep vein thrombosis (DVT) of right lower extremity Status: Acute Plan: 1. Continue aspirin, Lopressor, digoxin, Lovenox, lasix 2. Amiodarone discontinued 10/23 3. INR this morning 1.3, will give Coumadin 7.5 mg today 4. Diabetic management per internal medicine service. 5. Strict I/O, daily weights. 6. Encourage incentive spirometry use. 7. Increase activity. PT/OT to work with patient while hospitalized 8. Plan for discharge to rehab soon. Time with Patient: Greater than 30
--- NOTE | 2016-10-26 14:21 | P.PN ---
Subjective Principal diagnosis: Status post aortic valve replacement and mitral valve repair postoperative day # 27 This is a 61-year-old male patient was undergone a cardiac surgery which involved aVR with mitral valve repair on 09/29/2016. The patient was discharged home on 10/04/2016. Following that the patient was readmitted to the hospital because of increased shortness of breath, acute respiratory failure , cough, syncope and sternal wound dehiscence. The patient was seen by cardiology thoracic surgery and he was taken back to the operating room where he underwent a closure of the sternal wound with a muscle flap on 10/15/2016. The patient was extubated off the mechanical ventilator on 10/16/2016. He initially had difficulties with swallowing yet he is currently doing better. He developed a right-sided pleural effusion he had an attempt for thoracentesis was done yesterday by Dr. Armando and this failed. Apparently there was no adequate fluid drainage during the procedure. As such the procedure was aborted. The patient has a left-sided chest tube in place which is draining approximately less than 100 mL over the past 24 hours and the plan is to take of the chest tube. He is actually taking well at 6 L/m nasal cannula. His is or 82. He is hemodynamically stable. He is pulling approximately 500 on the incentive spirometer. The patient has MEGHAN drains on his sternal wound a total of 3 and the drainage is not active at this point. The patient is hemodynamically stable on no pressors. His CODE STATUS is full at this point. On 10/19/2016 I'm seeing this patient in follow-up. He is doing well. He is sitting up on a bed and he is on 5 L of oxygen by nasal cannula. His chest x- ray still showing better pleural effusion worse on the right and the plan is to proceed with thoracentesis this morning. He is tolerating his diet. No nausea. No vomiting. No chest pain. Sternum stable clean and intact. No fever. No chills. White cell count is at 10.0 and hemoglobin is at 8.4 which is stable. The patient remains on IV Zosyn. I discussed the case with Dr. Ramos and we'll keep the Sporanox on hold for the time being due to concerns of drug interaction. The patient has had Haemophilus and Serratia in his sputum. The MEGHAN drains are still in place. MEGHAN drain #1 has put out 20 mL and # 2 has put out 80 mL of urine output is around 50 mL an hour. On 10/20/2016 I'm seeing this patient in follow-up. The patient has been weaned down to 4 L of oxygen by nasal cannula. He underwent a thoracentesis of the right lung yesterday and total of 1.6 L of pleural fluid was aspirated from the right lung. Patient is doing well. The patient is not having any major respiratory difficulties. The patient was able to breathe better following the procedure. No significant cough or sputum production. The patient has Haemophilus and consideration his sputum and the patient is still on IV Zosyn. MEGHAN drain is still in place. No chills. No fever. He is gradually increasing his oral intake. No other significant events over the past 24 hours. He is having episodes of paroxysmal atrial fibrillation and the patient is on no anti- coagulation at this point. This will be further discussed with cardiology. On 10/21/2016 the patient is being seen in follow-up. He is doing well. No specific complaints. His follow-up chest x-ray from today shows improving bibasilar pulmonary infiltrates with moderate amount of infiltration still on the right along with some residual pleural effusion. He was started on long- term anticoagulation. He is in atrial fibrillation. Is tolerating his diet. He is weak however his getting stronger and is able to sit up on a chair. MEGHAN drains are in place and the output in the 3 tubes are still active and they will be kept in place for the time being. On 10/22/2016, the patient is being seen in follow-up. He is on of getting slightly confused yet he is not agitated and, comfortable. Hemodynamically stable. No significant rest or distress. Chest x-ray findings are essentially stable with atelectatic changes and small effusion the lung bases bilaterally. MEGHAN drains are all in place. Surgery is monitoring the output and managing the MEGHAN drains. Meanwhile, the patient is being migrated and INR is subtherapeutic at 1.8. He remains in atrial fibrillation with a controlled rate. Hemoglobin is stable. Patient is tolerating his diet. No nausea. No vomiting. No abdominal pain. He has trace edema in lower extremities bilaterally. No other significant events over the past 24 hours. On 10/23/2016 the patient is being seen on the medical floor. The patient is on telemetry unit. He is doing well. A bit lethargic and on and off confused. For the most part he is comfortable. On examination, he has diminished breath sounds on the right and I suspect that is the recommendation of the pleural fluid on the right side. Meanwhile, the patient on 2 L of oxygen by nasal cannula. No breathing difficulties. MEGHAN drains are in place. He has edematous extremities. PT/INR is subtherapeutic. Hemoglobin stable at 8.4. On 10/24/2016, the patient is sitting up on a chair. Mentation is appropriate. MEGHAN drains are in place. Surgical wound site is clean and intact and dry. The patient has diminished breath sounds in the lung bases. No fever. No chills. No night sweats. No other significant events overnight. He received 2 mg of warfarin yesterday and INR is subtherapeutic at 1.2. He continues to be atrial fibrillation at the rate is controlled for now and he is hemodynamically stable. Patient was reevaluated today on 10/25/2016, seems to be doing relatively well, sitting up in the chair, seems to be very appropriate, in no form of respiratory distress, surgical wound seems to be clean and intact, patient is denying any shortness of breath no cough no wheezing. He has diminished breath sounds at the bases, CBC was relatively normal except for hemoglobin of 8.6. Electrolytes are normal renal profile is relatively normal INR is 1.2 lashes subtherapeutic, his last chest x-ray was on 10/22/2016. Patient was reevaluated today on 10/26/2016, patient is sitting up in the chair, relatively asymptomatic trach, continues to have some swelling around his lower extremities. But denies any shortness of breath no cough no wheezing. Denies to have MEGHAN drains, he is becoming more and more active in the room, and I believe we are considering rehab referral at some point. Labs today showed a normal CBC hemoglobin however is 8.5. INR is 1.3, basic metabolic profile is normal BUN is 32 creatinine is 1.13. Chest x-ray was ordered to be done in a.m. Objective - Vital Signs Vital signs: Vital Signs Temp 97 F L 10/26/16 12:00 Pulse 72 10/26/16 12:00 Resp 18 10/26/16 12:00 BP 91/53 10/26/16 12:00 Pulse Ox 93 L 10/26/16 12:00 Intake & Output 10/25/16 10/26/16 10/26/16 18:59 06:59 18:59 Intake Total 480.20 120 Output Total 3390 100 101 Balance -2909.80 20 -101 Weight 112.5 kg 108.2 kg 108.2 kg Intake: IV 0.20 0.9 0.20 Oral 480 120 Tube Feeding 0 0 Output: Drainage 240 100 100 Left Lateral Chest 140 0 0 Medial Chest 0 0 0 Right Lateral Chest 100 100 100 Urine 3000 Duong Catheter 750 Post Void Residual 150 Stool 1 Other: Voiding Method Incontinent Incontinent Bedside Commode Urinal Incontinent # Voids 1 1 1 # Bowel Movements 0 ABP, PAP, CO, CI - Last Documented Arterial Blood Pressure 104/50 - Exam Head exam was generally normal. There was no scleral icterus or corneal arcus. Mucous membranes were moist.Neck was supple and without jugular venous distension, thyromegaly, or carotid bruits. Carotids were easily palpable bilaterally. There was no adenopathy. Lung sounds are diminished in the lung base bilaterally especially in the right lung base. The patient has weak and poor respiratory efforts. Heart sounds are regular, positive S1-S2 and there is no significant murmurs appreciated. Sternum was stable clean and intact and the patient's sternal wound is covered with a Aquacel silver dressing. MEGHAN drains were visualized. No active drainage from the wounds.Abdominal exam revealed normal bowel sounds. The abdomen was soft, non-tender, and without masses, organomegaly, or appreciable enlargement of the abdominal aorta.Examination of the extremities revealed easily palpable radial, femoral and pedal pulses. There was no cyanosis,2 plus bipedal edema is noted. - Labs CBC & Chem 7: 10/26/16 05:31 10/26/16 05:31 Labs: Abnormal Lab Results - Last 24 Hours (Table) 10/25/16 10/25/16 10/26/16 Range/Units 16:48 20:32 05:31 RBC (4.30-5.90) m/uL Hgb (13.0-17.5) gm/dL Hct (39.0-53.0) % MCHC (31.0-37.0) g/dL RDW (11.5-15.5) % PT 12.9 H (9.0-12.0) sec Sodium (137-145) mmol/L BUN (9-20) mg/dL POC Glucose (mg/dL) 104 H 101 H (75-99) mg/dL Calcium (8.4-10.2) mg/dL 10/26/16 10/26/16 10/26/16 Range/Units 05:31 05:31 11:51 RBC 2.96 L (4.30-5.90) m/uL Hgb 8.5 L (13.0-17.5) gm/dL Hct 27.9 L (39.0-53.0) % MCHC 30.3 L (31.0-37.0) g/dL RDW 17.7 H (11.5-15.5) % PT (9.0-12.0) sec Sodium 132 L (137-145) mmol/L BUN 32 H (9-20) mg/dL POC Glucose (mg/dL) 104 H (75-99) mg/dL Calcium 7.4 L (8.4-10.2) mg/dL Assessment and Plan Plan: 1 status post aortic valve replacement and mitral valve repair and the patient is postop day # 27 2 sternal wound dehiscence, post muscle flap, postop day # 11 3 post extubation and the patient was weaned off the mechanical ventilator on 4 bilateral pleural effusion, status post thoracentesis of the right lung and evacuation of 1.6 L of pleural fluid. Chest x-ray was ordered to be done in a.m. 5 left-sided chest tube with diminished output, and the chest tube was removed you days ago. 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 The patient was seen by Dr. Ramos. Recommendations were treating this patient with itraconazole 100 mg by mouth twice a day. 12 Serratia marcescens and Haemophilus influenza in the sputum, currently on IV Zosyn 13 hypernatremia, improved 14 generalized weakness 15 episodes of change in mental status, possibly secondary to delirium. Plan Continue with warfarin regarding his chronic atrial fibrillation. The dose will be adjusted by cardiology. Otherwise. Is quite stable at this point. No change in mental status. MEGHAN drains are in place. CT surgery is following up this patient regarding the surgical wound drains. Consider discharge planning eventually to a rehab facility. Continue present supportive care measures, will continue to follow. Chest x-ray was ordered to be done in a.m. Continue to follow. Time with Patient: Less than 30
--- NOTE | 2016-10-26 14:23 | P.PN ---
Subjective Principal diagnosis: Status post mitral valve repair and aortic valve replacement. Status post open-heart surgery, respiratory failure, atrial fibrillation and CHF and sternal dehiscence, pleural effusion Patient is a status post repair of the mitral valve and also aortic valve replacement. Patient seemed to be doing better. Getting stronger every day. Being followed on the telemetry unit today. Continues to be in atrial fibrillation with a controlled ventricular response. He seems to be much more alert. Blood pressure today 110/60 with a heart rate in the 70s. 93% on 2 L of oxygen. Objective - Vital Signs Vital signs: Vital Signs Temp 97 F L 10/26/16 12:00 Pulse 72 10/26/16 12:00 Resp 18 10/26/16 12:00 BP 91/53 10/26/16 12:00 Pulse Ox 93 L 10/26/16 12:00 Intake & Output 10/25/16 10/26/16 10/26/16 18:59 06:59 18:59 Intake Total 480.20 120 Output Total 3390 100 101 Balance -2909.80 20 -101 Weight 112.5 kg 108.2 kg 108.2 kg Intake: IV 0.20 0.9 0.20 Oral 480 120 Tube Feeding 0 0 Output: Drainage 240 100 100 Left Lateral Chest 140 0 0 Medial Chest 0 0 0 Right Lateral Chest 100 100 100 Urine 3000 Duong Catheter 750 Post Void Residual 150 Stool 1 Other: Voiding Method Incontinent Incontinent Bedside Commode Urinal Incontinent # Voids 1 1 1 # Bowel Movements 0 ABP, PAP, CO, CI - Last Documented Arterial Blood Pressure 104/50 - Exam GENERAL EXAM: Patient is extubated. He is alert, awake. He is still weak and frail HEENT: Normocephalic. Normal reaction of pupils, equal size, normal range of extraocular motion. No erythema or exudates in the throat. NECK: No masses, no nuchal rigidity. CHEST: No chest wall deformity. LUNGS: [Diminished breath sounds, scattered rhonchi HEART: Irregular heart rhythm ABDOMEN: No hepatosplenomegaly, normal bowel sounds, no guarding or rigidity. SKIN: No rashes CENTRAL NERVOUS SYSTEM: Sedated EXTREMITIES: No cyanosis, clubbing or edema. - Labs CBC & Chem 7: 10/26/16 05:31 10/26/16 05:31 Labs: Abnormal Lab Results - Last 24 Hours (Table) 10/25/16 10/25/16 10/26/16 Range/Units 16:48 20:32 05:31 RBC (4.30-5.90) m/uL Hgb (13.0-17.5) gm/dL Hct (39.0-53.0) % MCHC (31.0-37.0) g/dL RDW (11.5-15.5) % PT 12.9 H (9.0-12.0) sec Sodium (137-145) mmol/L BUN (9-20) mg/dL POC Glucose (mg/dL) 104 H 101 H (75-99) mg/dL Calcium (8.4-10.2) mg/dL 10/26/16 10/26/16 10/26/16 Range/Units 05:31 05:31 11:51 RBC 2.96 L (4.30-5.90) m/uL Hgb 8.5 L (13.0-17.5) gm/dL Hct 27.9 L (39.0-53.0) % MCHC 30.3 L (31.0-37.0) g/dL RDW 17.7 H (11.5-15.5) % PT (9.0-12.0) sec Sodium 132 L (137-145) mmol/L BUN 32 H (9-20) mg/dL POC Glucose (mg/dL) 104 H (75-99) mg/dL Calcium 7.4 L (8.4-10.2) mg/dL Assessment and Plan (1) Paroxysmal a-fib Status: Acute (2) Status post aortic valve replacement Status: Acute (3) Status post mitral valve repair Status: Acute (4) Congestive heart failure due to valvular disease Status: Acute (5) Histoplasmosis Status: Acute (6) Hypercholesterolemia Status: Acute (7) Hypertension Status: Acute (8) Hypothyroidism (acquired) Status: Acute Plan: Patient seems to be progressing well overall. Appetite has improved. Breathing is much more stable. DNP note has been reviewed, I agree with a documented findings and plan of care. Patient was seen and examined.
[2016-10-26 17:02] LABS: Glucose,Whole Blood 117 mg/dL (75-99)
[2016-10-26] MEDS ORDERED: WARFARIN 7.5 MG TAB PO ONE (18:00)
[2016-10-26 20:37] LABS: Glucose,Whole Blood 133 mg/dL (75-99)
--- NOTE | 2016-10-26 20:54 | P.PN ---
Subjective Principal diagnosis: Respiratory failure This is a 71-year-old male who came in the hospital on September 23 and underwent a JAYDE and heart catheterization showing a ruptured chordae tendonae, mitral regurgitation, moderate pulmonary hypertension, with history of paroxysmal atrial fibrillation and heart failure. 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 With this the patient was initiated to itraconazole. He however developed atrial fibrillation. Because of this he was initiated to amiodarone. The dose of itraconazole was reduced by 50%. There is no evidence of any ulcerations of the QT interval while he was in hospital. He eventually was discharged home. It is related that he was not able to obtain the itraconazole. In this is going to be addressed in the coming days. However the brought him to the emergency room feeling very short of breath. He was having abdominal distention with increasing shortness of breath. Through his stay in emergency center he continues to feel more more short of breath. He then developed respiratory failure which required intubation sedation mechanical ventilation. Over the following days he is improved was extubated in his continue to improve. His extensive edema has improved. Especially the massive abdominal edema that he was having. Extremity edema is also improved. He is awake and interactive is improving already being in the chair much better than yesterday. Strength is improved. Looks for doing a rehab Objective - Vital Signs Vital signs: Vital Signs Temp 95.7 F L 10/26/16 16:00 Pulse 88 10/26/16 19:05 Resp 18 10/26/16 16:00 BP 99/61 10/26/16 16:00 Pulse Ox 90 L 10/26/16 16:00 Intake & Output 10/26/16 10/26/16 10/27/16 06:59 18:59 06:59 Intake Total 120 560 Output Total 100 256 Balance 20 304 Weight 108.2 kg 108.2 kg Intake: Oral 120 560 Tube Feeding 0 Output: Drainage 100 255 Left Lateral Chest 0 10 Medial Chest 0 20 Right Lateral Chest 100 225 Stool 1 Other: Voiding Method Incontinent Bedside Commode Urinal Incontinent # Voids 1 1 # Bowel Movements 0 ABP, PAP, CO, CI - Last Documented Arterial Blood Pressure 104/50 - Exam This is a 71-year-old male. comfortable HEENT: Head is atraumatic, normocephalic. Pupils equal, round. Sclerae is anicteric. Conjunctiva slightly pale. Mucous membranes of the mouth are moist. No thrush noted. NECK: Supple. No JVD. No lymphadenopathy. No thyromegaly. LUNGS: There is symmetrical air entry. There are bibasal crackles. No significant bronchial sounds. HEART: Irregular with no no murmur Dressing on sternal wound with no breakthrough bleeding or drainage. Right sided pleural chest tube in place. ABDOMEN: Distinctly distended. Few bowel sounds are noted. Organomegaly is not detected. EXTREMITIES: +1 bilateral pedal edema. No calf tenderness. ORLIN hose in place. NEUROLOGICAL: Awake and interactive hand corpsman is much stronger today. Voice is stronger. Mentation is clear. Skin :patient has an extensive dressing to the chest where there was difficulty with the dehiscence. - Labs CBC & Chem 7: 10/26/16 05:31 10/26/16 05:31 Labs: Abnormal Lab Results - Last 24 Hours (Table) 10/26/16 10/26/16 10/26/16 Range/Units 05:31 05:31 05:31 RBC 2.96 L (4.30-5.90) m/uL Hgb 8.5 L (13.0-17.5) gm/dL Hct 27.9 L (39.0-53.0) % MCHC 30.3 L (31.0-37.0) g/dL RDW 17.7 H (11.5-15.5) % PT 12.9 H (9.0-12.0) sec Sodium 132 L (137-145) mmol/L BUN 32 H (9-20) mg/dL POC Glucose (mg/dL) (75-99) mg/dL Calcium 7.4 L (8.4-10.2) mg/dL 10/26/16 10/26/16 10/26/16 Range/Units 11:51 16:56 20:35 RBC (4.30-5.90) m/uL Hgb (13.0-17.5) gm/dL Hct (39.0-53.0) % MCHC (31.0-37.0) g/dL RDW (11.5-15.5) % PT (9.0-12.0) sec Sodium (137-145) mmol/L BUN (9-20) mg/dL POC Glucose (mg/dL) 104 H 117 H 133 H (75-99) mg/dL Calcium (8.4-10.2) mg/dL Laboratory Results WBC 9.6 k/uL (3.8-10.6) 10/26/16 05:31 RBC 2.96 m/uL (4.30-5.90) L 10/26/16 05:31 Hgb 8.5 gm/dL (13.0-17.5) L 10/26/16 05:31 Hct 27.9 % (39.0-53.0) L 10/26/16 05:31 MCV 94.4 fL (80.0-100.0) 10/26/16 05:31 MCH 28.6 pg (25.0-35.0) 10/26/16 05:31 MCHC 30.3 g/dL (31.0-37.0) L 10/26/16 05:31 RDW 17.7 % (11.5-15.5) H 10/26/16 05:31 Plt Count 235 k/uL (150-450) 10/26/16 05:31 Neutrophils % 81 % 10/25/16 05:31 Neutrophils % (Manual) 85.5 % 10/08/16 04:20 Band Neutrophils % 0.5 % 10/08/16 04:20 Lymphocytes % 7 % 10/25/16 05:31 Lymphocytes % (Manual) 5.5 % 10/08/16 04:20 Monocytes % 4 % 10/25/16 05:31 Monocytes % (Manual) 4.0 % 10/08/16 04:20 Eosinophils % 5 % 10/25/16 05:31 Eosinophils % (Manual) 3.0 % 10/08/16 04:20 Basophils % 1 % 10/25/16 05:31 Metamyelocytes % 1.0 % 10/08/16 04:20 Myelocytes % 0.5 % 10/08/16 04:20 Neutrophils # 7.9 k/uL (1.3-7.7) H 10/25/16 05:31 Neutrophils # (Manual) 16.2 k/uL (1.3-7.7) H 10/08/16 04:20 Lymphocytes # 0.7 k/uL (1.0-4.8) L 10/25/16 05:31 Lymphocytes # (Manual) 1.0 k/uL (1.0-4.8) 10/08/16 04:20 Monocytes # 0.4 k/uL (0-1.0) 10/25/16 05:31 Monocytes # (Manual) 0.8 k/uL (0-1.0) 10/08/16 04:20 Eosinophils # 0.5 k/uL (0-0.7) 10/25/16 05:31 Eosinophils # (Manual) 0.6 k/uL (0-0.7) 10/08/16 04:20 Basophils # 0.1 k/uL (0-0.2) 10/25/16 05:31 Nucleated RBCs 0 /100 WBC (0-0) 10/08/16 04:20 Manual Slide Review Performed 10/08/16 04:20 Large Platelets Present 10/06/16 21:00 Polychromasia Present 10/08/16 04:20 Hypochromasia Marked 10/26/16 05:31 Poikilocytosis (manual Present 10/08/16 04:20 Poikilocytosis Moderate 10/26/16 05:31 Anisocytosis Slight 10/26/16 05:31 Macrocytosis Slight 10/25/16 05:31 Ovalocytes Present 10/06/16 21:00 PT 12.9 sec (9.0-12.0) H 10/26/16 05:31 INR 1.3 (<1.1) 10/26/16 05:31 APTT 28.1 sec (22.0-30.0) 10/22/16 05:00 D-Dimer 6.31 mg/L FEU (<0.60) H 10/06/16 21:00 Sample Site shyanne 10/16/16 04:45 ABG pH 7.46 (7.35-7.45) H 10/16/16 04:45 ABG pCO2 41 mmHg (35-45) 10/16/16 04:45 ABG pO2 101 mmHg (83-108) 10/16/16 04:45 ABG HCO3 29 mmol/L (21-25) H 10/16/16 04:45 ABG Total CO2 30 mmol/L (19-24) H 10/16/16 04:45 ABG O2 Saturation 98.0 % (94-97) H 10/16/16 04:45 ABG Base Excess 5.3 mmol/L 10/16/16 04:45 FiO2 50 % 10/16/16 04:45 Sodium 132 mmol/L (137-145) L 10/26/16 05:31 Potassium 4.1 mmol/L (3.5-5.1) 10/26/16 05:31 Chloride 101 mmol/L (98-107) 10/26/16 05:31 Carbon Dioxide 24 mmol/L (22-30) 10/26/16 05:31 Anion Gap 7 mmol/L 10/26/16 05:31 BUN 32 mg/dL (9-20) H 10/26/16 05:31 Creatinine 1.13 mg/dL (0.66-1.25) 10/26/16 05:31 Est GFR (MDRD) Af Amer >60 (>60 ml/min/1.73 sqM) 10/26/16 05:31 Est GFR (MDRD) Non-Af >60 (>60 ml/min/1.73 sqM) 10/26/16 05:31 Glucose 78 mg/dL (74-99) 10/26/16 05:31 POC Glucose (mg/dL) 133 mg/dL (75-99) H 10/26/16 20:35 POC Glu Batch Weigher Augie Ross 10/26/16 20:[address] Glu mg/dL 120 mg/dL 10/07/16 05:18 Hemoglobin A1c 5.8 % (4.2-6.1) 10/07/16 05:18 Plasma Lactic Acid Samir 1.0 mmol/L (0.7-2.0) 10/07/16 05:18 Calcium 7.4 mg/dL (8.4-10.2) L 10/26/16 05:31 Ionized Calcium Guille 4.4 mg/dL (4.5-5.3) L 10/15/16 05:00 Phosphorus 4.5 mg/dL (2.5-4.5) 10/25/16 05:31 Magnesium 2.1 mg/dL (1.6-2.3) 10/25/16 05:31 Total Bilirubin 0.9 mg/dL (0.2-1.3) 10/25/16 05:31 AST 33 U/L (17-59) 10/25/16 05:31 ALT 43 U/L (21-72) 10/25/16 05:31 Alkaline Phosphatase 70 U/L (38-126) 10/25/16 05:31 Total Creatine Kinase 736 U/L (55-170) H 10/06/16 09:50 CK-MB (CK-2) 7.2 ng/mL (0.0-2.4) H* 10/06/16 09:50 CK-MB (CK-2) Rel Index 1.0 10/06/16 09:50 Troponin I 1.510 ng/mL (0.000-0.034) H* 10/06/16 09:50 NT-Pro-B Natriuret Pep 6520 pg/mL 10/06/16 09:50 Total Protein 5.2 g/dL (6.3-8.2) L 10/25/16 05:31 Albumin 2.4 g/dL (3.5-5.0) L 10/25/16 05:31 TSH 49.300 mIU/L (0.465-4.680) H 10/21/16 05:15 Free T4 1.05 ng/dL (0.78-2.19) 10/21/16 05:15 Urine Color Dark Yellow 10/06/16 18:30 Urine Appearance Cloudy (Clear) 10/06/16 18:30 Urine pH 5.0 (5.0-8.0) 10/06/16 18:30 Ur Specific [place] 1.018 (1.001-1.035) 10/06/16 18:30 Urine Protein Trace (Negative) H 10/06/16 18:30 Urine Glucose (UA) Negative (Negative) 10/06/16 18:30 Urine Ketones Negative (Negative) 10/06/16 18:30 Urine Blood Negative (Negative) 10/06/16 18:30 Urine Nitrite Negative (Negative) 10/06/16 18:30 Urine Bilirubin 1+ (Negative) H 10/06/16 18:30 Urine Urobilinogen 4.0 mg/dL (<2.0) 10/06/16 18:30 Ur Leukocyte Esterase Negative (Negative) 10/06/16 18:30 Urine WBC 10 /hpf (0-5) H 10/06/16 18:30 Ur Squamous Epith Cells 2 /hpf (0-4) 10/06/16 18:30 Calcium Oxalate Crystal Occasional /hpf (None) H 10/06/16 18:30 Amorphous Sediment Occasional /hpf (None) H 10/06/16 18:30 Hyaline Casts 79 /lpf (0-2) H 10/06/16 18:30 Urine Mucus Rare /hpf (None) H 10/06/16 18:30 Vancomycin Trough 15.0 ug/mL 10/17/16 04:10 Digoxin 0.9 ng/mL 10/17/16 20:36 Blood Type O Positive 10/14/16 13:52 Blood Type Recheck No 10/14/16 13:52 Antibody Screen NEGATIVE 10/14/16 13:52 Crossmatch See Detail 10/14/16 13:52 Transfuse Platelets 10/15/16 10/14/16 13:52 Spec Expiration Date 10/17/2016 - 235110/14/16 13:52 Microbiology 10/15/16 14:40 Chest Anaerobic Culture - Final 10/15/16 14:40 Chest Anaerobic Culture - Final 10/15/16 14:40 Chest Anaerobic Culture - Final 10/15/16 14:40 Chest Gram Stain - Final 10/15/16 14:40 Chest Tissue Culture - Final 10/15/16 14:40 Chest Gram Stain - Final 10/15/16 14:40 Chest Wound Culture - Final 10/15/16 14:40 Chest Gram Stain - Final 10/15/16 14:40 Chest Wound Culture - Final 10/11/16 06:40 Blood Blood Culture - Final No Growth after 144 hours 10/11/16 11:47 Catheter Tip Catheter Tip Culture - Final 10/06/16 10:00 Blood Blood Culture - Final No Growth after 144 hours 10/06/16 21:00 Sputum Gram Stain - Final 10/06/16 21:00 Sputum Sputum Culture - Final Haemophilus influenzae Serratia marcescens Assessment and Plan (1) Acute respiratory failure Narrative/Plan: 71-year-old male with history of thyroid cancer recently was hospitalized at which point in time was having difficulties with congestive heart failure. He was noted evidence of aortic valve insufficiency and mitral valve regurgitation. There is also some lymphadenopathy noted within the chest. As he was taken to the operating room and aortic valve replacement occurred as well as mitral valve repair. Biopsy of mediastinal lymph nodes also occurred. 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 Patient was initiated to itraconazole. He however developed atrial fibrillation and was placed on amiodarone and the itraconazole dose was reduced. Upon discharge he has not been able to continue the itraconazole. However is only been home for a very short period of time we developed the progressive shortness of breath. At admission he has extensive edema in his abdominal cavity as well as evidence of congestive heart failure. Concerns to pneumonia given his significant leukocytosis and antibiotic therapy was begun with piperacillin tazobactam and vancomycin. Sputum culture with Haemophilus and Serratia resistant to Unasyn susceptible to Zosyn. We Will Continue Zosyn, Ongoing aggressive supportive care is continuing Cardiothoracic surgery is following after the reconstruction of the sternum, cultures are negative so far. No evidence of any infection Patient had extensive leukocytosis at admission. This is now improved. Zosyn antibiotic therapy is discontinued. Fortunately the sternum cultures are all negative and no evidence of deep infection of the sternum at this time. He is doing well off of antibiotic therapy has being monitored. Encouraged for his high protein diet to help his healing Status: Acute (2) Status post aortic valve replacement Status: Acute (3) Status post mitral valve repair Status: Acute (4) Histoplasmosis Status: Acute
[2016-10-27 05:38] LABS: Glucose,Whole Blood 109 mg/dL (75-99)
[2016-10-27] MEDS: INSULIN LISPRO (humaLOG) 300 UNIT/3 ML VIAL SQ SCH ×4 (05:51→21:41)
[2016-10-27 05:59] LABS: Anisocytosis Slight; CH 29.2; CHCM 31.2; HCT 27.1 % (39.0-53.0); HDW 4.12; HGB 8.3 gm/dL (13.0-17.5); Hypochromasia Marked; MCH 28.9 pg (25.0-35.0); MCHC 30.8 g/dL (31.0-37.0); MCV 94.1 fL (80.0-100.0); Mean Platelet Volume 7.6; Poikilocytosis Moderate; RBC 2.88 m/uL (4.30-5.90); RDW 17.8 % (11.5-15.5); WBC 9.2 k/uL (3.8-10.6)
[2016-10-27 06:13] LABS: Anion Gap 8 mmol/L; Blood Urea Nitrogen 37 mg/dL (9-20); Calcium 7.4 mg/dL (8.4-10.2); Carbon Dioxide 25 mmol/L (22-30); Chloride 101 mmol/L (98-107); Glucose 97 mg/dL (74-99); Non-African American GFR(MDRD) >60 (>60 ml/min/1.73 sqM); Potassium 4.1 mmol/L (3.5-5.1); Sodium 134 mmol/L (137-145)
[2016-10-27 06:22] LABS: INR 1.5 (<1.1); Prothrombin Time 14.4 sec (9.0-12.0)
[2016-10-27] MEDS: LEVOTHYROXINE 75 MCG TAB PO SCH (06:22)
--- NOTE | 2016-10-27 08:02 | XR ---
EXAMINATION TYPE: XR chest 1V DATE OF EXAM: 10/27/2016 7:19 AM COMPARISON: 10/22/2016 HISTORY: SOB, Follow Up FINDINGS: Indwelling tubes and catheters are unchanged. No change in bibasilar opacities. Stable cardiomegaly with pulmonary venous congestion and pleural effusions right greater than left. Pleural effusion unchanged. IMPRESSION: 1. Stable portable chest. Clinical correlation and follow up until resolution is recommended.
[2016-10-27] MEDS: ASPIRIN 81 MG CHEW PO SCH (08:55)
[2016-10-27] MEDS: DIGOXIN 125 MCG TAB PO SCH (08:55)
[2016-10-27] MEDS: FUROSEMIDE 10 MG/ML 2 ML VIAL IV SCH ×2 (08:55→20:11)
[2016-10-27] MEDS: METOPROLOL TARTRATE 25 MG TAB PO SCH ×2 (08:55→20:13)
[2016-10-27] MEDS: ENOXAPARIN 120 MG/0.8 ML SYRINGE SQ SCH ×2 (08:56→20:11)
[2016-10-27] MEDS: IPRATROPIUM-ALBUTEROL 3 ML NEB INHALATION SCH ×4 (09:37→21:01)
[2016-10-27 11:55] LABS: Glucose,Whole Blood 122 mg/dL (75-99)
--- NOTE | 2016-10-27 12:32 | P.PN ---
Subjective Principal diagnosis: Status post aortic valve replacement and mitral valve repair postoperative day # 27 This is a 61-year-old male patient was undergone a cardiac surgery which involved aVR with mitral valve repair on 09/29/2016. The patient was discharged home on 10/04/2016. Following that the patient was readmitted to the hospital because of increased shortness of breath, acute respiratory failure , cough, syncope and sternal wound dehiscence. The patient was seen by cardiology thoracic surgery and he was taken back to the operating room where he underwent a closure of the sternal wound with a muscle flap on 10/15/2016. The patient was extubated off the mechanical ventilator on 10/16/2016. He initially had difficulties with swallowing yet he is currently doing better. He developed a right-sided pleural effusion he had an attempt for thoracentesis was done yesterday by Dr. Armando and this failed. Apparently there was no adequate fluid drainage during the procedure. As such the procedure was aborted. The patient has a left-sided chest tube in place which is draining approximately less than 100 mL over the past 24 hours and the plan is to take of the chest tube. He is actually taking well at 6 L/m nasal cannula. His is or 82. He is hemodynamically stable. He is pulling approximately 500 on the incentive spirometer. The patient has MEGHAN drains on his sternal wound a total of 3 and the drainage is not active at this point. The patient is hemodynamically stable on no pressors. His CODE STATUS is full at this point. On 10/19/2016 I'm seeing this patient in follow-up. He is doing well. He is sitting up on a bed and he is on 5 L of oxygen by nasal cannula. His chest x- ray still showing better pleural effusion worse on the right and the plan is to proceed with thoracentesis this morning. He is tolerating his diet. No nausea. No vomiting. No chest pain. Sternum stable clean and intact. No fever. No chills. White cell count is at 10.0 and hemoglobin is at 8.4 which is stable. The patient remains on IV Zosyn. I discussed the case with Dr. Ramos and we'll keep the Sporanox on hold for the time being due to concerns of drug interaction. The patient has had Haemophilus and Serratia in his sputum. The MEGHAN drains are still in place. MEGHAN drain #1 has put out 20 mL and # 2 has put out 80 mL of urine output is around 50 mL an hour. On 10/20/2016 I'm seeing this patient in follow-up. The patient has been weaned down to 4 L of oxygen by nasal cannula. He underwent a thoracentesis of the right lung yesterday and total of 1.6 L of pleural fluid was aspirated from the right lung. Patient is doing well. The patient is not having any major respiratory difficulties. The patient was able to breathe better following the procedure. No significant cough or sputum production. The patient has Haemophilus and consideration his sputum and the patient is still on IV Zosyn. MEGHAN drain is still in place. No chills. No fever. He is gradually increasing his oral intake. No other significant events over the past 24 hours. He is having episodes of paroxysmal atrial fibrillation and the patient is on no anti- coagulation at this point. This will be further discussed with cardiology. On 10/21/2016 the patient is being seen in follow-up. He is doing well. No specific complaints. His follow-up chest x-ray from today shows improving bibasilar pulmonary infiltrates with moderate amount of infiltration still on the right along with some residual pleural effusion. He was started on long- term anticoagulation. He is in atrial fibrillation. Is tolerating his diet. He is weak however his getting stronger and is able to sit up on a chair. MEGHAN drains are in place and the output in the 3 tubes are still active and they will be kept in place for the time being. On 10/22/2016, the patient is being seen in follow-up. He is on of getting slightly confused yet he is not agitated and, comfortable. Hemodynamically stable. No significant rest or distress. Chest x-ray findings are essentially stable with atelectatic changes and small effusion the lung bases bilaterally. MEGHAN drains are all in place. Surgery is monitoring the output and managing the MEGHAN drains. Meanwhile, the patient is being migrated and INR is subtherapeutic at 1.8. He remains in atrial fibrillation with a controlled rate. Hemoglobin is stable. Patient is tolerating his diet. No nausea. No vomiting. No abdominal pain. He has trace edema in lower extremities bilaterally. No other significant events over the past 24 hours. On 10/23/2016 the patient is being seen on the medical floor. The patient is on telemetry unit. He is doing well. A bit lethargic and on and off confused. For the most part he is comfortable. On examination, he has diminished breath sounds on the right and I suspect that is the recommendation of the pleural fluid on the right side. Meanwhile, the patient on 2 L of oxygen by nasal cannula. No breathing difficulties. MEGHAN drains are in place. He has edematous extremities. PT/INR is subtherapeutic. Hemoglobin stable at 8.4. On 10/24/2016, the patient is sitting up on a chair. Mentation is appropriate. MEGHAN drains are in place. Surgical wound site is clean and intact and dry. The patient has diminished breath sounds in the lung bases. No fever. No chills. No night sweats. No other significant events overnight. He received 2 mg of warfarin yesterday and INR is subtherapeutic at 1.2. He continues to be atrial fibrillation at the rate is controlled for now and he is hemodynamically stable. Patient was reevaluated today on 10/25/2016, seems to be doing relatively well, sitting up in the chair, seems to be very appropriate, in no form of respiratory distress, surgical wound seems to be clean and intact, patient is denying any shortness of breath no cough no wheezing. He has diminished breath sounds at the bases, CBC was relatively normal except for hemoglobin of 8.6. Electrolytes are normal renal profile is relatively normal INR is 1.2 lashes subtherapeutic, his last chest x-ray was on 10/22/2016. Patient was reevaluated today on 10/26/2016, patient is sitting up in the chair, relatively asymptomatic , continues to have some swelling around his lower extremities. But denies any shortness of breath no cough no wheezing. Denies to have MEGHAN drains, he is becoming more and more active in the room, and I believe we are considering rehab referral at some point. Labs today showed a normal CBC hemoglobin however is 8.5. INR is 1.3, basic metabolic profile is normal BUN is 32 creatinine is 1.13. Chest x-ray was ordered to be done in a.m. On , patient is remains about the same, patient is relatively asymptomatic, minimal swelling in lower extremities noted, discharge planning is in progress for possible rehab facility. Chest x-ray is reassuring cardiomegaly is noted, and small bilateral pleural effusions are noted not large enough to consider thoracentesis. Right is more so than left. CBC is relatively unremarkable hemoglobin is 8.3 basic metabolic profile is relatively normal creatinine is 1.18. Objective - Vital Signs Vital signs: Vital Signs Temp 97 F L 10/27/16 12:00 Pulse 76 10/27/16 12:00 Resp 18 10/27/16 12:00 BP 96/58 10/27/16 12:00 Pulse Ox 92 L 10/27/16 12:00 Intake & Output 10/26/16 10/27/16 10/27/16 18:59 06:59 18:59 Intake Total 560 140 260 Output Total 256 111 30 Balance 304 29 230 Weight 108.2 kg 111.6 kg Intake: IV 140 0.9 140 Oral 560 260 Output: Drainage 255 110 30 Left Lateral Chest 10 90 20 Medial Chest 20 0 10 Right Lateral Chest 225 20 0 Stool 1 1 Other: Voiding Method Bedside Commode Bedside Commode Bedside Commode Urinal Urinal Urinal Incontinent Incontinent Incontinent # Voids 1 1 # Bowel Movements 0 ABP, PAP, CO, CI - Last Documented Arterial Blood Pressure 104/50 - Exam Head exam was generally normal. There was no scleral icterus or corneal arcus. Mucous membranes were moist.Neck was supple and without jugular venous distension, thyromegaly, or carotid bruits. Carotids were easily palpable bilaterally. There was no adenopathy. Lung sounds are diminished in the lung base bilaterally especially in the right lung base. Heart sounds are regular, positive S1-S2 and there is no significant murmurs appreciated. Sternum was stable clean and intact and the patient's sternal wound is covered with a Aquacel silver dressing. No active drainage from the wounds.Abdominal exam revealed normal bowel sounds. The abdomen was soft, non-tender, and without masses, organomegaly, or appreciable enlargement of the abdominal aorta.Examination of the extremities revealed easily palpable radial, femoral and pedal pulses. There was no cyanosis,2 plus bipedal edema is noted. - Labs CBC & Chem 7: 10/27/16 05:24 10/27/16 05:24 Labs: Abnormal Lab Results - Last 24 Hours (Table) 10/26/16 10/26/16 10/27/16 Range/Units 16:56 20:35 05:24 RBC (4.30-5.90) m/uL Hgb (13.0-17.5) gm/dL Hct (39.0-53.0) % MCHC (31.0-37.0) g/dL RDW (11.5-15.5) % PT 14.4 H (9.0-12.0) sec Sodium (137-145) mmol/L BUN (9-20) mg/dL POC Glucose (mg/dL) 117 H 133 H (75-99) mg/dL Calcium (8.4-10.2) mg/dL 10/27/16 10/27/16 10/27/16 Range/Units 05:24 05:24 05:36 RBC 2.88 L (4.30-5.90) m/uL Hgb 8.3 L (13.0-17.5) gm/dL Hct 27.1 L (39.0-53.0) % MCHC 30.8 L (31.0-37.0) g/dL RDW 17.8 H (11.5-15.5) % PT (9.0-12.0) sec Sodium 134 L (137-145) mmol/L BUN 37 H (9-20) mg/dL POC Glucose (mg/dL) 109 H (75-99) mg/dL Calcium 7.4 L (8.4-10.2) mg/dL 10/27/16 Range/Units 11:52 RBC (4.30-5.90) m/uL Hgb (13.0-17.5) gm/dL Hct (39.0-53.0) % MCHC (31.0-37.0) g/dL RDW (11.5-15.5) % PT (9.0-12.0) sec Sodium (137-145) mmol/L BUN (9-20) mg/dL POC Glucose (mg/dL) 122 H (75-99) mg/dL Calcium (8.4-10.2) mg/dL Assessment and Plan Plan: 1 status post aortic valve replacement and mitral valve repair and the patient is postop day # 28 2 sternal wound dehiscence, post muscle flap, postop day # 12 3 post extubation and the patient was weaned off the mechanical ventilator on 4 bilateral pleural effusion, status post thoracentesis of the right lung and evacuation of 1.6 L of pleural fluid. Chest x-ray was ordered to be done in a.m. 5 left-sided chest tube with diminished output, and the chest tube was removed you days ago. 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 The patient was seen by Dr. Ramos. Recommendations were treating this patient with itraconazole 100 mg by mouth twice a day. 12 Serratia marcescens and Haemophilus influenza in the sputum, currently on IV Zosyn 13 hypernatremia, improved 14 generalized weakness 15 episodes of change in mental status, possibly secondary to delirium. Plan Continue with warfarin regarding his chronic atrial fibrillation. The dose will be adjusted by cardiology. Otherwise. Is quite stable at this point. No change in mental status. CT surgery is following up this patient regarding the surgical wound drains. Consider discharge planning eventually to a rehab facility. Continue present supportive care measures, will continue to follow. Chest x-ray was ordered to be done in a.m. Continue to follow. Time with Patient: Less than 30
[2016-10-27] MEDS: MULTIVITAMINS, THERA 1 EACH TAB PO SCH (13:02)
--- NOTE | 2016-10-27 14:39 | P.PN ---
Subjective Principal diagnosis: Status post mitral valve repair and aortic valve replacement. Status post open-heart surgery, respiratory failure, atrial fibrillation and CHF and sternal dehiscence, pleural effusion Patient is a status post repair of the mitral valve and also aortic valve replacement. Patient seemed to be doing better. Getting stronger every day. Continues to be in atrial fibrillation with a controlled ventricular response. He seems to be much more alert. Chest x-ray continues to reveal small bilateral pleural effusions, not amendable to thoracentesis. Hemoglobin 8.3 today, creatinine 1.1. Arrangements being made for ECF placement. Objective - Vital Signs Vital signs: Vital Signs Temp 97 F L 10/27/16 12:00 Pulse 88 10/27/16 13:19 Resp 18 10/27/16 12:00 BP 96/58 10/27/16 12:00 Pulse Ox 92 L 10/27/16 12:00 Intake & Output 10/26/16 10/27/16 10/27/16 18:59 06:59 18:59 Intake Total 560 140 260 Output Total 256 111 710 Balance 304 29 -450 Weight 108.2 kg 111.6 kg Intake: IV 140 0.9 140 Oral 560 260 Output: Drainage 255 110 30 Left Lateral Chest 10 90 20 Medial Chest 20 0 10 Right Lateral Chest 225 20 0 Urine 680 Stool 1 1 Other: Voiding Method Bedside Commode Bedside Commode Bedside Commode Urinal Urinal Urinal Incontinent Incontinent Incontinent # Voids 1 1 # Bowel Movements 0 ABP, PAP, CO, CI - Last Documented Arterial Blood Pressure 104/50 - Exam GENERAL EXAM: Patient is extubated. He is alert, awake. He is still weak and frail HEENT: Normocephalic. Normal reaction of pupils, equal size, normal range of extraocular motion. No erythema or exudates in the throat. NECK: No masses, no nuchal rigidity. CHEST: No chest wall deformity. LUNGS: [Diminished breath sounds, scattered rhonchi HEART: Irregular heart rhythm ABDOMEN: No hepatosplenomegaly, normal bowel sounds, no guarding or rigidity. SKIN: No rashes CENTRAL NERVOUS SYSTEM: Sedated EXTREMITIES: No cyanosis, clubbing or edema. - Labs CBC & Chem 7: 10/27/16 05:24 10/27/16 05:24 Labs: Abnormal Lab Results - Last 24 Hours (Table) 10/26/16 10/26/16 10/27/16 Range/Units 16:56 20:35 05:24 RBC (4.30-5.90) m/uL Hgb (13.0-17.5) gm/dL Hct (39.0-53.0) % MCHC (31.0-37.0) g/dL RDW (11.5-15.5) % PT 14.4 H (9.0-12.0) sec Sodium (137-145) mmol/L BUN (9-20) mg/dL POC Glucose (mg/dL) 117 H 133 H (75-99) mg/dL Calcium (8.4-10.2) mg/dL 10/27/16 10/27/16 10/27/16 Range/Units 05:24 05:24 05:36 RBC 2.88 L (4.30-5.90) m/uL Hgb 8.3 L (13.0-17.5) gm/dL Hct 27.1 L (39.0-53.0) % MCHC 30.8 L (31.0-37.0) g/dL RDW 17.8 H (11.5-15.5) % PT (9.0-12.0) sec Sodium 134 L (137-145) mmol/L BUN 37 H (9-20) mg/dL POC Glucose (mg/dL) 109 H (75-99) mg/dL Calcium 7.4 L (8.4-10.2) mg/dL 10/27/16 Range/Units 11:52 RBC (4.30-5.90) m/uL Hgb (13.0-17.5) gm/dL Hct (39.0-53.0) % MCHC (31.0-37.0) g/dL RDW (11.5-15.5) % PT (9.0-12.0) sec Sodium (137-145) mmol/L BUN (9-20) mg/dL POC Glucose (mg/dL) 122 H (75-99) mg/dL Calcium (8.4-10.2) mg/dL Assessment and Plan (1) Paroxysmal a-fib Status: Acute (2) Status post aortic valve replacement Status: Acute (3) Status post mitral valve repair Status: Acute (4) Congestive heart failure due to valvular disease Status: Acute (5) Histoplasmosis Status: Acute (6) Hypercholesterolemia Status: Acute (7) Hypertension Status: Acute (8) Hypothyroidism (acquired) Status: Acute Plan: Patient seems to be progressing well overall. Arrangements being made for ECF placement. DNP note has been reviewed, I agree with a documented findings and plan of care. Patient was seen and examined.
--- NOTE | 2016-10-27 15:28 | P.PN ---
<Orion Quiroz L - Last Filed: 10/27/16 15:07> Progress Note - Text CV Surgery Nursing Principal diagnosis: Acute hypoxic respiratory failure requiring mechanical ventilation, present on admission. Sputum culture positive for Haemophilus influenza, serratia marcescens. Was on Zosyn, vanco. Infectious disease following. CAT scan of the chest on 10/09/16 demonstrated dehiscence of sternal wires, an unexpected postsurgical condition related to the patient's underlying comorbidities. POD #30 aortic valve replacement, mitral valve repair, modified Frederick maze, mediastinal lymph node biopsy. POD #12 sternal exploration due to sternal debridement and wound closure with bilateral pectoralis major myocutaneous advancement flaps POD #12 placement of left chest tube for left pleural effusion POD #8 right thoracentesis for right pleural effusion with drainage of 1.5 L of dark red tinged fluid. Bilateral lower extremity ultrasound done, revealed a right lower extremity DVT extending from the common femoral vein down to the upper calf veins, no DVT in the left lower extremity. Patient started on Lovenox 10/26/2016. Patient awake and alert, no distress noted, no specific complaints. he is sitting up to bedside chair at this time getting bathed . Vital Signs: Afebrile Vital Signs - 24 hr 10/26/16 10/26/16 10/26/16 16:00 18:56 19:05 Temperature 95.7 F L Pulse Rate 84 88 Pulse Rate [ 87 Pulse Oximetery ] Respiratory 18 Rate Blood Pressure 99/61 [Right Arm] O2 Sat by Pulse 90 L Oximetry 10/26/16 10/27/16 10/27/16 20:00 00:00 04:00 Temperature 99.6 F 99.1 F 98.4 F Pulse Rate Pulse Rate [ 78 96 76 Pulse Oximetery ] Respiratory 18 18 18 Rate Blood Pressure 109/76 98/61 93/55 [Right Arm] O2 Sat by Pulse 92 L 92 L 96 Oximetry 10/27/16 10/27/16 10/27/16 08:00 09:37 09:48 Temperature 98.6 F Pulse Rate 88 90 Pulse Rate [ 82 Pulse Oximetery ] Respiratory 18 Rate Blood Pressure 115/64 [Right Arm] O2 Sat by Pulse 94 L Oximetry 10/27/16 10/27/16 10/27/16 12:00 13:08 13:19 Temperature 97 F L Pulse Rate 86 88 Pulse Rate [ 76 Pulse Oximetery ] Respiratory 18 Rate Blood Pressure 96/58 [Right Arm] O2 Sat by Pulse 92 L Oximetry Labs: Short CBC 10/27/16 Range/Units 05:24 WBC 9.2 (3.8-10.6) k/uL Hgb 8.3 L (13.0-17.5) gm/dL Hct 27.1 L (39.0-53.0) % Plt Count 224 (150-450) k/uL BMP 10/27/16 05:24 Sodium 134 L Potassium 4.1 Chloride 101 Carbon Dioxide 25 BUN 37 H Creatinine 1.18 Glucose 97 Calcium 7.4 L ABG ABG pH 7.46 (7.35-7.45) H 10/16/16 04:45 ABG pCO2 41 mmHg (35-45) 10/16/16 04:45 ABG pO2 101 mmHg (83-108) 10/16/16 04:45 ABG O2 Saturation 98.0 % (94-97) H 10/16/16 04:45 PT/INR, D-dimer PT 14.4 sec (9.0-12.0) H 10/27/16 05:24 INR 1.5 (<1.1) 10/27/16 05:24 D-Dimer 6.31 mg/L FEU (<0.60) H 10/06/16 21:00 Lungs: Diminished bilateral bases right greater than left. Respirations are symmetrical and unlabored. O2 sat: 92% on room air. I/S: 750 mL, reviewed with the patient important of using his incentive spirometry every hour while awake. The patient did give a good return demonstration on his incentive spirometry. Heart: S1S2, irregular with controlled rate. Negative for S3, gallop or murmur. Remote telemetry showing atrial fibrillation heart rate of 103. Chest incision clean with Silver dressing clean and dry. MEGHAN drains in place draining serosanguineous drainage. Right chest MEGHAN drain with 20 mL output in the last 8 hours, 145 mL output in the last 24 hours. The mid chest MEGHAN drain draining serosanguineous drainage. 0 mL output in the last 8 hours, 20 mL output in the last 24 hours. Left chest MEGHAN drain draining thin serosanguineous drainage. 90 mL output in the last 8 hours, 100 mL output in the last [address] in place, reminded patient on use of her heart hugger. Knee-high ORLIN hose and sequential compression devices in place to bilateral lower extremities. Patient does have +2 edema to his bilateral lower extremities. Abdomen: Soft, Positive bowel sounds present in all 4 quadrants. CBGs: 88-133 mg/dL in the last 24 hours. U/O: Adequate. 680 mL output in the last 8 hours. 24 hr Total: Intake & Output 10/25/16 10/26/16 10/27/16 10/28/16 06:59 06:59 06:59 06:59 Intake Total 1240 600.20 700 260 Output Total 1870 3490 367 710 Balance -630 -2889.80 333 -450 Weight 112.5 kg 108.2 kg 111.6 kg Active Medications Albuterol/Ipratropium (Duoneb 0.5 Mg-3 Mg/3 Ml Soln) 3 ml INHALATION RT-QID [facility] Last Admin: 10/27/16 13:08 Dose: 3 ml Aspirin (Aspirin) 81 mg PO DAILY [facility] Last Admin: 10/27/16 08:55 Dose: 81 mg Digoxin (Lanoxin) 125 mcg PO DAILY [facility] Last Admin: 10/27/16 08:55 Dose: 125 mcg Enoxaparin Sodium (Lovenox) 115 mg SQ Q12HR [facility] Last Admin: 10/27/16 08:56 Dose: 115 mg Furosemide (Lasix) 20 mg IV Q12HR [facility] Last Admin: 10/27/16 08:55 Dose: 20 mg Ibuprofen (Motrin Oral Susp Cup) 600 mg PO Q6H PRN PRN Reason: Fever and/or Mild Pain Last Admin: 10/11/16 02:21 Dose: 600 mg Insulin Human Lispro (Humalog) 0 unit SQ ACHS [facility] PRN Reason: Protocol Last Admin: 10/27/16 13:02 Dose: Not Given Levothyroxine Sodium (Synthroid) 150 mcg PO DAILY@0630 [facility] Last Admin: 10/27/16 06:22 Dose: 150 mcg Metoprolol Tartrate (Lopressor) 25 mg PO BID [facility] Last Admin: 10/27/16 08:55 Dose: 25 mg Miscellaneous Information (Magnesium Per Protocol) 1 each MISCELLANE DAILY PRN ; Protocol PRN Reason: Per Protocol Miscellaneous Information (Phosphorus Per Protocol) 1 each MISCELLANE DAILY PRN ; Protocol PRN Reason: Per Protocol Miscellaneous Information (Potassium Per Protocol) 1 each MISCELLANE DAILY PRN ; Protocol PRN Reason: Per Protocol Multivitamins (Theragran) 1 each PO DAILY@1200 [facility] Last Admin: 10/27/16 13:02 Dose: 1 each Pantoprazole Sodium (Protonix) 40 mg PO AC-BRKFST [facility] Sodium Chloride (Saline Flush) 20 ml IV Q4HR PRN PRN Reason: PICC Line Last Admin: 10/25/16 09:36 Dose: 20 ml Sodium Chloride (Saline Flush) 10 ml IV WEEKLY [facility] Last Admin: 10/25/16 09:44 Dose: Not Given Warfarin Sodium (Coumadin) 7.5 mg PO ONCE@1800 ONE Stop: 10/27/16 18:01 Plan: 1. Continue aspirin, Lopressor, digoxin, Lovenox, lasix 2. MEGHAN drains will remain in place and we will continue to monitor the output. 3. INR this morning 1.5, will give Coumadin 7.5 mg by mouth today 4. Diabetic management per internal medicine service. 5. Strict I/O, daily weights. 6. Encourage incentive spirometry use. Dr. Gaffney following for pulmonary management. 7. Increase activity. PT/OT to work with patient while hospitalized 8. Plan for discharge to rehab soon. Dr. Christina to reevaluate the patient for inpatient rehab. <Brant Crawford - Last Filed: 10/27/16 16:30> Progress Note - Text The patient was seen and examined. I agree with the above assessment and plan. His INR this morning was 1.5. We will give him 7.5 g Coumadin tonight. Otherwise we'll continue his care as outlined. His MEGHAN drains will remain intact. He is currently being evaluated for inpatient rehab.
[2016-10-27 16:42] LABS: Glucose,Whole Blood 115 mg/dL (75-99)
[2016-10-27] MEDS ORDERED: WARFARIN 7.5 MG TAB PO ONE (18:00)
--- NOTE | 2016-10-27 20:33 | P.PN ---
Subjective Principal diagnosis: Respiratory failure This is a 71-year-old male who came in the hospital on September 23 and underwent a JAYDE and heart catheterization showing a ruptured chordae tendonae, mitral regurgitation, moderate pulmonary hypertension, with history of paroxysmal atrial fibrillation and heart failure. 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 With this the patient was initiated to itraconazole. He however developed atrial fibrillation. Because of this he was initiated to amiodarone. The dose of itraconazole was reduced by 50%. There is no evidence of any ulcerations of the QT interval while he was in hospital. He eventually was discharged home. It is related that he was not able to obtain the itraconazole. In this is going to be addressed in the coming days. However the brought him to the emergency room feeling very short of breath. He was having abdominal distention with increasing shortness of breath. Through his stay in emergency center he continues to feel more more short of breath. He then developed respiratory failure which required intubation sedation mechanical ventilation. Over the following days he is improved was extubated in his continue to improve. His extensive edema has improved. Especially the massive abdominal edema that he was having. Extremity edema is also improved. He is awake and interactive is improving already being in the chair much better than yesterday. Strength is improved. Looks forward for rehab Objective - Vital Signs Vital signs: Vital Signs Temp 97.4 F L 10/27/16 19:52 Pulse 85 10/27/16 19:52 Resp 18 10/27/16 19:52 BP 110/56 10/27/16 19:52 Pulse Ox 95 10/27/16 19:52 Intake & Output 10/27/16 10/27/16 10/28/16 06:59 18:59 06:59 Intake Total 140 260 Output Total 111 710 Balance 29 -450 Weight 111.6 kg Intake: IV 140 0.9 140 Oral 260 Output: Drainage 110 30 Left Lateral Chest 90 20 Medial Chest 0 10 Right Lateral Chest 20 0 Urine 680 Stool 1 Other: Voiding Method Bedside Commode Bedside Commode Bedside Commode Urinal Urinal Urinal Incontinent Incontinent Incontinent # Voids 1 ABP, PAP, CO, CI - Last Documented Arterial Blood Pressure 104/50 - Exam This is a 71-year-old male. comfortable HEENT: Head is atraumatic, normocephalic. Pupils equal, round. Sclerae is anicteric. Conjunctiva slightly pale. Mucous membranes of the mouth are moist. No thrush noted. NECK: Supple. No JVD. No lymphadenopathy. No thyromegaly. LUNGS: There is symmetrical air entry. There are bibasal crackles. No significant bronchial sounds. HEART: Irregular with no no murmur Dressing on sternal wound with no breakthrough bleeding or drainage. Right sided pleural chest tube in place. ABDOMEN: Distinctly distended. Few bowel sounds are noted. Organomegaly is not detected. EXTREMITIES: +1 bilateral pedal edema. No calf tenderness. ORLIN hose in place. 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 Voice is stronger. Mentation is clear. Skin :patient has an extensive dressing to the chest where there was difficulty with the dehiscence. - Labs CBC & Chem 7: 10/27/16 05:24 10/27/16 05:24 Labs: Abnormal Lab Results - Last 24 Hours (Table) 10/26/16 10/27/16 10/27/16 Range/Units 20:35 05:24 05:24 RBC 2.88 L (4.30-5.90) m/uL Hgb 8.3 L (13.0-17.5) gm/dL Hct 27.1 L (39.0-53.0) % MCHC 30.8 L (31.0-37.0) g/dL RDW 17.8 H (11.5-15.5) % PT 14.4 H (9.0-12.0) sec Sodium (137-145) mmol/L BUN (9-20) mg/dL POC Glucose (mg/dL) 133 H (75-99) mg/dL Calcium (8.4-10.2) mg/dL 10/27/16 10/27/16 10/27/16 Range/Units 05:24 05:36 11:52 RBC (4.30-5.90) m/uL Hgb (13.0-17.5) gm/dL Hct (39.0-53.0) % MCHC (31.0-37.0) g/dL RDW (11.5-15.5) % PT (9.0-12.0) sec Sodium 134 L (137-145) mmol/L BUN 37 H (9-20) mg/dL POC Glucose (mg/dL) 109 H 122 H (75-99) mg/dL Calcium 7.4 L (8.4-10.2) mg/dL 10/27/16 Range/Units 16:28 RBC (4.30-5.90) m/uL Hgb (13.0-17.5) gm/dL Hct (39.0-53.0) % MCHC (31.0-37.0) g/dL RDW (11.5-15.5) % PT (9.0-12.0) sec Sodium (137-145) mmol/L BUN (9-20) mg/dL POC Glucose (mg/dL) 115 H (75-99) mg/dL Calcium (8.4-10.2) mg/dL Laboratory Results WBC 9.2 k/uL (3.8-10.6) 10/27/16 05:24 RBC 2.88 m/uL (4.30-5.90) L 10/27/16 05:24 Hgb 8.3 gm/dL (13.0-17.5) L 10/27/16 05:24 Hct 27.1 % (39.0-53.0) L 10/27/16 05:24 MCV 94.1 fL (80.0-100.0) 10/27/16 05:24 MCH 28.9 pg (25.0-35.0) 10/27/16 05:24 MCHC 30.8 g/dL (31.0-37.0) L 10/27/16 05:24 RDW 17.8 % (11.5-15.5) H 10/27/16 05:24 Plt Count 224 k/uL (150-450) 10/27/16 05:24 Neutrophils % 81 % 10/25/16 05:31 Neutrophils % (Manual) 85.5 % 10/08/16 04:20 Band Neutrophils % 0.5 % 10/08/16 04:20 Lymphocytes % 7 % 10/25/16 05:31 Lymphocytes % (Manual) 5.5 % 10/08/16 04:20 Monocytes % 4 % 10/25/16 05:31 Monocytes % (Manual) 4.0 % 10/08/16 04:20 Eosinophils % 5 % 10/25/16 05:31 Eosinophils % (Manual) 3.0 % 10/08/16 04:20 Basophils % 1 % 10/25/16 05:31 Metamyelocytes % 1.0 % 10/08/16 04:20 Myelocytes % 0.5 % 10/08/16 04:20 Neutrophils # 7.9 k/uL (1.3-7.7) H 10/25/16 05:31 Neutrophils # (Manual) 16.2 k/uL (1.3-7.7) H 10/08/16 04:20 Lymphocytes # 0.7 k/uL (1.0-4.8) L 10/25/16 05:31 Lymphocytes # (Manual) 1.0 k/uL (1.0-4.8) 10/08/16 04:20 Monocytes # 0.4 k/uL (0-1.0) 10/25/16 05:31 Monocytes # (Manual) 0.8 k/uL (0-1.0) 10/08/16 04:20 Eosinophils # 0.5 k/uL (0-0.7) 10/25/16 05:31 Eosinophils # (Manual) 0.6 k/uL (0-0.7) 10/08/16 04:20 Basophils # 0.1 k/uL (0-0.2) 10/25/16 05:31 Nucleated RBCs 0 /100 WBC (0-0) 10/08/16 04:20 Manual Slide Review Performed 10/08/16 04:20 Large Platelets Present 10/06/16 21:00 Polychromasia Present 10/08/16 04:20 Hypochromasia Marked 10/27/16 05:24 Poikilocytosis (manual Present 10/08/16 04:20 Poikilocytosis Moderate 10/27/16 05:24 Anisocytosis Slight 10/27/16 05:24 Macrocytosis Slight 10/25/16 05:31 Ovalocytes Present 10/06/16 21:00 PT 14.4 sec (9.0-12.0) H 10/27/16 05:24 INR 1.5 (<1.1) 10/27/16 05:24 APTT 28.1 sec (22.0-30.0) 10/22/16 05:00 D-Dimer 6.31 mg/L FEU (<0.60) H 10/06/16 21:00 Sample Site shyanne 10/16/16 04:45 ABG pH 7.46 (7.35-7.45) H 10/16/16 04:45 ABG pCO2 41 mmHg (35-45) 10/16/16 04:45 ABG pO2 101 mmHg (83-108) 10/16/16 04:45 ABG HCO3 29 mmol/L (21-25) H 10/16/16 04:45 ABG Total CO2 30 mmol/L (19-24) H 10/16/16 04:45 ABG O2 Saturation 98.0 % (94-97) H 10/16/16 04:45 ABG Base Excess 5.3 mmol/L 10/16/16 04:45 FiO2 50 % 10/16/16 04:45 Sodium 134 mmol/L (137-145) L 10/27/16 05:24 Potassium 4.1 mmol/L (3.5-5.1) 10/27/16 05:24 Chloride 101 mmol/L (98-107) 10/27/16 05:24 Carbon Dioxide 25 mmol/L (22-30) 10/27/16 05:24 Anion Gap 8 mmol/L 10/27/16 05:24 BUN 37 mg/dL (9-20) H 10/27/16 05:24 Creatinine 1.18 mg/dL (0.66-1.25) 10/27/16 05:24 Est GFR (MDRD) Af Amer >60 (>60 ml/min/1.73 sqM) 10/27/16 05:24 Est GFR (MDRD) Non-Af >60 (>60 ml/min/1.73 sqM) 10/27/16 05:24 Glucose 97 mg/dL (74-99) 10/27/16 05:24 POC Glucose (mg/dL) 115 mg/dL (75-99) H 10/27/16 16:28 POC Glu Conservator Artifacts UMESH [place] 10/27/16 16:[address] Glu mg/dL 120 mg/dL 10/07/16 05:18 Hemoglobin A1c 5.8 % (4.2-6.1) 10/07/16 05:18 Plasma Lactic Acid [place] 1.0 mmol/L (0.7-2.0) 10/07/16 05:18 Calcium 7.4 mg/dL (8.4-10.2) L 10/27/16 05:24 Ionized Calcium Guille 4.4 mg/dL (4.5-5.3) L 10/15/16 05:00 Phosphorus 4.5 mg/dL (2.5-4.5) 10/25/16 05:31 Magnesium 2.1 mg/dL (1.6-2.3) 10/25/16 05:31 Total Bilirubin 0.9 mg/dL (0.2-1.3) 10/25/16 05:31 AST 33 U/L (17-59) 10/25/16 05:31 ALT 43 U/L (21-72) 10/25/16 05:31 Alkaline Phosphatase 70 U/L (38-126) 10/25/16 05:31 Total Creatine Kinase 736 U/L (55-170) H 10/06/16 09:50 CK-MB (CK-2) 7.2 ng/mL (0.0-2.4) H* 10/06/16 09:50 CK-MB (CK-2) Rel Index 1.0 10/06/16 09:50 Troponin I 1.510 ng/mL (0.000-0.034) H* 10/06/16 09:50 NT-Pro-B Natriuret Pep 6520 pg/mL 10/06/16 09:50 Total Protein 5.2 g/dL (6.3-8.2) L 10/25/16 05:31 Albumin 2.4 g/dL (3.5-5.0) L 10/25/16 05:31 TSH 49.300 mIU/L (0.465-4.680) H 10/21/16 05:15 Free T4 1.05 ng/dL (0.78-2.19) 10/21/16 05:15 Urine Color Dark Yellow 10/06/16 18:30 Urine Appearance Cloudy (Clear) 10/06/16 18:30 Urine pH 5.0 (5.0-8.0) 10/06/16 18:30 Ur Specific [place] 1.018 (1.001-1.035) 10/06/16 18:30 Urine Protein Trace (Negative) H 10/06/16 18:30 Urine Glucose (UA) Negative (Negative) 10/06/16 18:30 Urine Ketones Negative (Negative) 10/06/16 18:30 Urine Blood Negative (Negative) 10/06/16 18:30 Urine Nitrite Negative (Negative) 10/06/16 18:30 Urine Bilirubin 1+ (Negative) H 10/06/16 18:30 Urine Urobilinogen 4.0 mg/dL (<2.0) 10/06/16 18:30 Ur Leukocyte Esterase Negative (Negative) 10/06/16 18:30 Urine WBC 10 /hpf (0-5) H 10/06/16 18:30 Ur Squamous Epith Cells 2 /hpf (0-4) 10/06/16 18:30 Calcium Oxalate Crystal Occasional /hpf (None) H 10/06/16 18:30 Amorphous Sediment Occasional /hpf (None) H 10/06/16 18:30 Hyaline Casts 79 /lpf (0-2) H 10/06/16 18:30 Urine Mucus Rare /hpf (None) H 10/06/16 18:30 Vancomycin Trough 15.0 ug/mL 10/17/16 04:10 Digoxin 0.9 ng/mL 10/17/16 20:36 Blood Type O Positive 10/14/16 13:52 Blood Type Recheck No 10/14/16 13:52 Antibody Screen NEGATIVE 10/14/16 13:52 Crossmatch See Detail 10/14/16 13:52 Transfuse Platelets 10/15/16 10/14/16 13:52 Spec Expiration Date 10/17/2016235110/14/16 13:52 Microbiology 10/15/16 14:40 Chest Anaerobic Culture - Final 10/15/16 14:40 Chest Anaerobic Culture - Final 10/15/16 14:40 Chest Anaerobic Culture - Final 10/15/16 14:40 Chest Gram Stain - Final 10/15/16 14:40 Chest Tissue Culture - Final 10/15/16 14:40 Chest Gram Stain - Final 10/15/16 14:40 Chest Wound Culture - Final 10/15/16 14:40 Chest Gram Stain - Final 10/15/16 14:40 Chest Wound Culture - Final 10/11/16 06:40 Blood Blood Culture - Final No Growth after 144 hours 10/11/16 11:47 Catheter Tip Catheter Tip Culture - Final 10/06/16 10:00 Blood Blood Culture - Final No Growth after 144 hours 10/06/16 21:00 Sputum Gram Stain - Final 10/06/16 21:00 Sputum Sputum Culture - Final Haemophilus influenzae Serratia marcescens Assessment and Plan (1) Acute respiratory failure Narrative/Plan: 71-year-old male with history of thyroid cancer recently was hospitalized at which point in time was having difficulties with congestive heart failure. He was noted evidence of aortic valve insufficiency and mitral valve regurgitation. There is also some lymphadenopathy noted within the chest. As he was taken to the operating room and aortic valve replacement occurred as well as mitral valve repair. Biopsy of mediastinal lymph nodes also occurred. 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 Patient was initiated to itraconazole. He however developed atrial fibrillation and was placed on amiodarone and the itraconazole dose was reduced. Upon discharge he has not been able to continue the itraconazole. However is only been home for a very short period of time we developed the progressive shortness of breath. At admission he has extensive edema in his abdominal cavity as well as evidence of congestive heart failure. Concerns to pneumonia given his significant leukocytosis and antibiotic therapy was begun with piperacillin tazobactam and vancomycin. Sputum culture with Haemophilus and Serratia resistant to Unasyn susceptible to Zosyn. We Will Continue Zosyn, Ongoing aggressive supportive care is continuing Cardiothoracic surgery is following after the reconstruction of the sternum, cultures are negative so far. No evidence of any infection Patient had extensive leukocytosis at admission. This is now improved. Zosyn antibiotic therapy is discontinued. Fortunately the sternum cultures are all negative and no evidence of deep infection of the sternum at this time. He is doing well off of antibiotic therapy has being monitored. Encouraged for his high protein diet to help his healing Status: Acute (2) Status post aortic valve replacement Status: Acute (3) Status post mitral valve repair Status: Acute (4) Histoplasmosis Status: Acute
[2016-10-27 21:02] LABS: Glucose,Whole Blood 141 mg/dL (75-99)
[2016-10-28 02:15] LABS: Glucose,Whole Blood 124 mg/dL (75-99)
[2016-10-28 05:59] LABS: Glucose,Whole Blood 102 mg/dL (75-99)
[2016-10-28] MEDS: INSULIN LISPRO (humaLOG) 300 UNIT/3 ML VIAL SQ SCH ×4 (06:29→23:05)
[2016-10-28] MEDS: LEVOTHYROXINE 75 MCG TAB PO SCH (06:41)
[2016-10-28] MEDS: PANTOPRAZOLE 40 MG TABLET PO SCH (06:41)
[2016-10-28 07:48] LABS: Anisocytosis Slight; CHCM 31.2; HCT 29.2 % (39.0-53.0); HDW 4.15; HGB 8.9 gm/dL (13.0-17.5); Hypochromasia Marked; MCH 28.4 pg (25.0-35.0); MCHC 30.4 g/dL (31.0-37.0); MCV 93.5 fL (80.0-100.0); Mean Platelet Volume 7.9; Poikilocytosis Moderate; RBC 3.12 m/uL (4.30-5.90); RDW 17.7 % (11.5-15.5); WBC 7.9 k/uL (3.8-10.6)
[2016-10-28 07:50] LABS: INR 1.8 (<1.1); Prothrombin Time 16.9 sec (9.0-12.0)
[2016-10-28] MEDS: FUROSEMIDE 10 MG/ML 2 ML VIAL IV SCH ×2 (08:18→23:01)
[2016-10-28] MEDS: ASPIRIN 81 MG CHEW PO SCH (08:19)
[2016-10-28] MEDS: ENOXAPARIN 120 MG/0.8 ML SYRINGE SQ SCH ×2 (08:19→23:00)
[2016-10-28] MEDS: DIGOXIN 125 MCG TAB PO SCH (08:19)
[2016-10-28] MEDS: METOPROLOL TARTRATE 25 MG TAB PO SCH ×2 (08:19→23:01)
[2016-10-28 08:51] LABS: Anion Gap 9 mmol/L; Blood Urea Nitrogen 35 mg/dL (9-20); Calcium 7.6 mg/dL (8.4-10.2); Carbon Dioxide 22 mmol/L (22-30); Chloride 106 mmol/L (98-107); Glucose 115 mg/dL (74-99); Non-African American GFR(MDRD) >60 (>60 ml/min/1.73 sqM); Sodium 137 mmol/L (137-145)
[2016-10-28] MEDS: IPRATROPIUM-ALBUTEROL 3 ML NEB INHALATION SCH ×4 (08:52→20:35)
[2016-10-28 08:58] LABS: Potassium 4.3 mmol/L (3.5-5.1)
--- NOTE | 2016-10-28 09:21 | P.PN ---
Progress Note - Text CV Surgery Nursing Principal diagnosis: Acute hypoxic respiratory failure requiring mechanical ventilation, present on admission. Sputum culture positive for Haemophilus influenza, serratia marcescens. Was on Zosyn, vanco. Infectious disease following. CAT scan of the chest on 10/09/16 demonstrated dehiscence of sternal wires, an unexpected postsurgical condition related to the patient's underlying comorbidities. POD #31 aortic valve replacement, mitral valve repair, modified Frederick maze, mediastinal lymph node biopsy. POD #13 sternal exploration due to sternal debridement and wound closure with bilateral pectoralis major myocutaneous advancement flaps POD #13 placement of left chest tube for left pleural effusion POD #9 right thoracentesis for right pleural effusion with drainage of 1.5 L of dark red tinged fluid. Bilateral lower extremity ultrasound done, revealed a right lower extremity DVT extending from the common femoral vein down to the upper calf veins, no DVT in the left lower extremity. Patient started on Lovenox 10/26/2016. Patient awake and alert, no distress noted, no specific complaints, he is sitting up to bedside chair. Nurse's aides at his chair side assisting him with a bath. Vital Signs: Afebrile Vital Signs - 24 hr 10/27/16 10/27/16 10/27/16 09:37 09:48 12:00 Temperature 97 F L Pulse Rate 88 90 Pulse Rate [ 76 Pulse Oximetery ] Respiratory 18 Rate Blood Pressure 96/58 [Right Arm] O2 Sat by Pulse 92 L Oximetry 10/27/16 10/27/16 10/27/16 13:08 13:19 16:00 Temperature 97.9 F Pulse Rate 86 88 Pulse Rate [ 68 Pulse Oximetery ] Respiratory 18 Rate Blood Pressure 113/59 [Right Arm] O2 Sat by Pulse 97 Oximetry 10/27/16 10/27/16 10/27/16 17:07 17:16 19:52 Temperature 97.4 F L Pulse Rate 84 88 Pulse Rate [ 85 Pulse Oximetery ] Respiratory 18 Rate Blood Pressure 110/56 [Right Arm] O2 Sat by Pulse 95 Oximetry 10/27/16 10/27/16 10/28/16 21:01 21:12 00:00 Temperature 99.2 F Pulse Rate 82 84 Pulse Rate [ 86 Pulse Oximetery ] Respiratory 20 Rate Blood Pressure 81/61 [Right Arm] O2 Sat by Pulse 95 Oximetry 10/28/16 10/28/16 10/28/16 04:57 04:58 07:14 Temperature 98.3 F 96.0 F L Pulse Rate Pulse Rate [ 75 101 H Pulse Oximetery ] Respiratory 18 20 Rate Blood Pressure 106/59 110/61 [Right Arm] O2 Sat by Pulse 89 L 95 96 Oximetry Labs: Short CBC 10/28/16 Range/Units 07:32 WBC 7.9 (3.8-10.6) k/uL Hgb 8.9 L (13.0-17.5) gm/dL Hct 29.2 L (39.0-53.0) % Plt Count 212 (150-450) k/uL BMP 10/28/16 07:32 Sodium 137 Potassium 4.3 Chloride 106 Carbon Dioxide 22 BUN 35 H Creatinine 1.11 Glucose 115 H Calcium 7.6 L ABG ABG pH 7.46 (7.35-7.45) H 10/16/16 04:45 ABG pCO2 41 mmHg (35-45) 10/16/16 04:45 ABG pO2 101 mmHg (83-108) 10/16/16 04:45 ABG O2 Saturation 98.0 % (94-97) H 10/16/16 04:45 PT/INR, D-dimer PT 16.9 sec (9.0-12.0) H 10/28/16 07:32 INR 1.8 (<1.1) 10/28/16 07:32 D-Dimer 6.31 mg/L FEU (<0.60) H 10/06/16 21:00 Lungs: Scattered rhonchi throughout, diminished bilateral bases. Respirations are symmetrical and unlabored. O2 sat: 96% on 2 L nasal cannula. I/S: 750 mL, reviewed with the patient important of using his incentive spirometry every hour while awake. The patient did give a good return demonstration on his incentive spirometry. Heart: S1S2, irregular rhythm with controlled rate. Negative for S3, gallop or murmur. Remote telemetry showing atrial fibrillation heart rate 85. Chest incision clean with Silver dressing clean and dry. Chest with fluctuation noted. No erythema. MEGHAN drains in place draining serosanguineous drainage. Right chest MEGHAN drain with 110 mL output in the last 8 hours, 110 mL output in the last 24 hours. The mid chest MEGHAN drain draining serosanguineous drainage. 250 mL output in the last 8 hours, 260 mL output in the last 24 hours. Left chest MEGHAN drain draining thin serosanguineous drainage. 0 mL output in the last 8 hours, 20 mL output in the last [address] in place, reminded patient on use of her heart hugger. Knee-high ORLIN hose and sequential compression devices in place to bilateral lower extremities. +2 edema to bilateral lower extremities. Abdomen: Soft, Positive bowel sounds present in all 4 quadrants. Patient states he had a bowel movement last p.m. CBGs: 102-141 mg/dL in the last 24 hours. U/O: Adequate. 24 hr Total: Intake & Output 10/26/16 10/27/16 10/28/16 10/29/16 06:59 06:59 06:59 06:59 Intake Total 600.20 700 260 463 Output Total 3490 367 1020 300 Balance -2889.80 333 -760 163 Weight 108.2 kg 111.6 kg 112 kg Active Medications Albuterol/Ipratropium (Duoneb 0.5 Mg-3 Mg/3 Ml Soln) 3 ml INHALATION RT-QID [facility] Last Admin: 10/28/16 08:52 Dose: Not Given Aspirin (Aspirin) 81 mg PO DAILY [facility] Last Admin: 10/28/16 08:19 Dose: 81 mg Digoxin (Lanoxin) 125 mcg PO DAILY [facility] Last Admin: 10/28/16 08:19 Dose: 125 mcg Enoxaparin Sodium (Lovenox) 115 mg SQ Q12HR [facility] Last Admin: 10/28/16 08:19 Dose: 115 mg Furosemide (Lasix) 20 mg IV Q12HR [facility] Last Admin: 10/28/16 08:18 Dose: 20 mg Ibuprofen (Motrin Oral Susp Cup) 600 mg PO Q6H PRN PRN Reason: Fever and/or Mild Pain Last Admin: 10/11/16 02:21 Dose: 600 mg Insulin Human Lispro (Humalog) 0 unit SQ ACHS [facility] PRN Reason: Protocol Last Admin: 10/28/16 06:29 Dose: Not Given Levothyroxine Sodium (Synthroid) 150 mcg PO DAILY@0630 [facility] Last Admin: 10/28/16 06:41 Dose: 150 mcg Metoprolol Tartrate (Lopressor) 25 mg PO BID [facility] Last Admin: 10/28/16 08:19 Dose: 25 mg Miscellaneous Information (Magnesium Per Protocol) 1 each MISCELLANE DAILY PRN ; Protocol PRN Reason: Per Protocol Miscellaneous Information (Phosphorus Per Protocol) 1 each MISCELLANE DAILY PRN ; Protocol PRN Reason: Per Protocol Miscellaneous Information (Potassium Per Protocol) 1 each MISCELLANE DAILY PRN ; Protocol PRN Reason: Per Protocol Multivitamins (Theragran) 1 each PO DAILY@1200 [facility] Last Admin: 10/27/16 13:02 Dose: 1 each Pantoprazole Sodium (Protonix) 40 mg PO AC-BRKFST [facility] Last Admin: 10/28/16 06:41 Dose: 40 mg Sodium Chloride (Saline Flush) 20 ml IV Q4HR PRN PRN Reason: PICC Line Last Admin: 10/25/16 09:36 Dose: 20 ml Sodium Chloride (Saline Flush) 10 ml IV WEEKLY [facility] Last Admin: 10/25/16 09:44 Dose: Not Given Warfarin Sodium (Coumadin) 10 mg PO ONCE@1800 ONE Stop: 10/28/16 18:01 Plan: 1. Continue aspirin, Lopressor, digoxin, Lovenox, lasix 2. MEGHAN drains will remain in place and we will continue to monitor the output. 3. INR this morning 1.8, will give Coumadin 10 mg by mouth today 4. Diabetic management per internal medicine service. 5. Strict I/O, daily weights. 6. Encourage incentive spirometry use. Dr. Gaffney following for pulmonary management. 7. Increase activity. PT/OT to work with patient while hospitalized. 8. Plan for discharge to rehab soon. Dr. Christina to reevaluate the patient for inpatient rehab.
[2016-10-28 11:31] LABS: Glucose,Whole Blood 119 mg/dL (75-99)
--- NOTE | 2016-10-28 11:39 | P.PN ---
Subjective Principal diagnosis: Status post aortic valve replacement and mitral valve repair postoperative day # 28 This is a 61-year-old male patient was undergone a cardiac surgery which involved aVR with mitral valve repair on 09/29/2016. The patient was discharged home on 10/04/2016. Following that the patient was readmitted to the hospital because of increased shortness of breath, acute respiratory failure , cough, syncope and sternal wound dehiscence. The patient was seen by cardiology thoracic surgery and he was taken back to the operating room where he underwent a closure of the sternal wound with a muscle flap on 10/15/2016. The patient was extubated off the mechanical ventilator on 10/16/2016. He initially had difficulties with swallowing yet he is currently doing better. He developed a right-sided pleural effusion he had an attempt for thoracentesis was done yesterday by Dr. Armando and this failed. Apparently there was no adequate fluid drainage during the procedure. As such the procedure was aborted. The patient has a left-sided chest tube in place which is draining approximately less than 100 mL over the past 24 hours and the plan is to take of the chest tube. He is actually taking well at 6 L/m nasal cannula. His is or 82. He is hemodynamically stable. He is pulling approximately 500 on the incentive spirometer. The patient has MEGHAN drains on his sternal wound a total of 3 and the drainage is not active at this point. The patient is hemodynamically stable on no pressors. His CODE STATUS is full at this point. On 10/19/2016 I'm seeing this patient in follow-up. He is doing well. He is sitting up on a bed and he is on 5 L of oxygen by nasal cannula. His chest x- ray still showing better pleural effusion worse on the right and the plan is to proceed with thoracentesis this morning. He is tolerating his diet. No nausea. No vomiting. No chest pain. Sternum stable clean and intact. No fever. No chills. White cell count is at 10.0 and hemoglobin is at 8.4 which is stable. The patient remains on IV Zosyn. I discussed the case with Dr. Ramos and we'll keep the Sporanox on hold for the time being due to concerns of drug interaction. The patient has had Haemophilus and Serratia in his sputum. The MEGHAN drains are still in place. MEGHAN drain #1 has put out 20 mL and # 2 has put out 80 mL of urine output is around 50 mL an hour. On 10/20/2016 I'm seeing this patient in follow-up. The patient has been weaned down to 4 L of oxygen by nasal cannula. He underwent a thoracentesis of the right lung yesterday and total of 1.6 L of pleural fluid was aspirated from the right lung. Patient is doing well. The patient is not having any major respiratory difficulties. The patient was able to breathe better following the procedure. No significant cough or sputum production. The patient has Haemophilus and consideration his sputum and the patient is still on IV Zosyn. MEGHAN drain is still in place. No chills. No fever. He is gradually increasing his oral intake. No other significant events over the past 24 hours. He is having episodes of paroxysmal atrial fibrillation and the patient is on no anti- coagulation at this point. This will be further discussed with cardiology. On 10/21/2016 the patient is being seen in follow-up. He is doing well. No specific complaints. His follow-up chest x-ray from today shows improving bibasilar pulmonary infiltrates with moderate amount of infiltration still on the right along with some residual pleural effusion. He was started on long- term anticoagulation. He is in atrial fibrillation. Is tolerating his diet. He is weak however his getting stronger and is able to sit up on a chair. MEGHAN drains are in place and the output in the 3 tubes are still active and they will be kept in place for the time being. On 10/22/2016, the patient is being seen in follow-up. He is on of getting slightly confused yet he is not agitated and, comfortable. Hemodynamically stable. No significant rest or distress. Chest x-ray findings are essentially stable with atelectatic changes and small effusion the lung bases bilaterally. MEGHAN drains are all in place. Surgery is monitoring the output and managing the MEGHAN drains. Meanwhile, the patient is being migrated and INR is subtherapeutic at 1.8. He remains in atrial fibrillation with a controlled rate. Hemoglobin is stable. Patient is tolerating his diet. No nausea. No vomiting. No abdominal pain. He has trace edema in lower extremities bilaterally. No other significant events over the past 24 hours. On 10/23/2016 the patient is being seen on the medical floor. The patient is on telemetry unit. He is doing well. A bit lethargic and on and off confused. For the most part he is comfortable. On examination, he has diminished breath sounds on the right and I suspect that is the recommendation of the pleural fluid on the right side. Meanwhile, the patient on 2 L of oxygen by nasal cannula. No breathing difficulties. MEGHAN drains are in place. He has edematous extremities. PT/INR is subtherapeutic. Hemoglobin stable at 8.4. On 10/24/2016, the patient is sitting up on a chair. Mentation is appropriate. MEGHAN drains are in place. Surgical wound site is clean and intact and dry. The patient has diminished breath sounds in the lung bases. No fever. No chills. No night sweats. No other significant events overnight. He received 2 mg of warfarin yesterday and INR is subtherapeutic at 1.2. He continues to be atrial fibrillation at the rate is controlled for now and he is hemodynamically stable. Patient was reevaluated today on 10/25/2016, seems to be doing relatively well, sitting up in the chair, seems to be very appropriate, in no form of respiratory distress, surgical wound seems to be clean and intact, patient is denying any shortness of breath no cough no wheezing. He has diminished breath sounds at the bases, CBC was relatively normal except for hemoglobin of 8.6. Electrolytes are normal renal profile is relatively normal INR is 1.2 lashes subtherapeutic, his last chest x-ray was on 10/22/2016. Patient was reevaluated today on 10/26/2016, patient is sitting up in the chair, relatively asymptomatic , continues to have some swelling around his lower extremities. But denies any shortness of breath no cough no wheezing. Denies to have MEGHAN drains, he is becoming more and more active in the room, and I believe we are considering rehab referral at some point. Labs today showed a normal CBC hemoglobin however is 8.5. INR is 1.3, basic metabolic profile is normal BUN is 32 creatinine is 1.13. Chest x-ray was ordered to be done in a.m. On 10/27/2016, patient is remains about the same, patient is relatively asymptomatic, minimal swelling in lower extremities noted, discharge planning is in progress for possible rehab facility. Chest x-ray is reassuring cardiomegaly is noted, and small bilateral pleural effusions are noted not large enough to consider thoracentesis. Right is more so than left. CBC is relatively unremarkable hemoglobin is 8.3 basic metabolic profile is relatively normal creatinine is 1.18. On 10/2016, patient is about the same, no changes over the last 24 hours, and overall the patient is feeling stronger, feeling better, labs are basically unremarkable including CBC and basic metabolic profile as well as renal profile last chest x-ray was on 10/27/2016, which I reviewed and noted above. Patient is awaiting possible referral to a rehab facility, we are considering sending him down to [facility] if patient is felt to be a good candidate for the facility. Objective - Vital Signs Vital signs: Vital Signs Temp 96.0 F L 10/28/16 07:14 Pulse 101 H 10/28/16 08:00 Resp 20 10/28/16 08:00 BP 110/61 10/28/16 07:14 Pulse Ox 96 10/28/16 07:14 Intake & Output 10/27/16 10/28/16 10/28/16 18:59 06:59 18:59 Intake Total 260 463 Output Total 710 310 300 Balance -450 -310 163 Weight 112 kg Intake: Oral 260 463 Output: Drainage 30 60 300 Left Lateral Chest 20 0 Medial Chest 10 250 Right Lateral Chest 0 60 50 Urine 680 250 Other: Voiding Method Bedside Commode Bedside Commode Bedside Commode Urinal Urinal Urinal Incontinent Incontinent Incontinent ABP, PAP, CO, CI - Last Documented Arterial Blood Pressure 104/50 - Exam Head exam was generally normal. There was no scleral icterus or corneal arcus. Mucous membranes were moist.Neck was supple and without jugular venous distension, thyromegaly, or carotid bruits. Carotids were easily palpable bilaterally. There was no adenopathy. Lung sounds are diminished in the lung base bilaterally especially in the right lung base. Heart sounds are regular, positive S1-S2 and there is no significant murmurs appreciated. Sternum was stable clean and intact and the patient's sternal wound is covered with a Aquacel silver dressing. No active drainage from the wounds.Abdominal exam revealed normal bowel sounds. The abdomen was soft, non-tender, and without masses, organomegaly, or appreciable enlargement of the abdominal aorta.Examination of the extremities revealed easily palpable radial, femoral and pedal pulses. There was no cyanosis, 1+ bipedal edema is noted. - Labs CBC & Chem 7: 10/28/16 07:32 10/28/16 07:32 Labs: Abnormal Lab Results - Last 24 Hours (Table) 10/27/16 10/27/16 10/27/16 Range/Units 11:52 16:28 21:00 RBC (4.30-5.90) m/uL Hgb (13.0-17.5) gm/dL Hct (39.0-53.0) % MCHC (31.0-37.0) g/dL RDW (11.5-15.5) % PT (9.0-12.0) sec BUN (9-20) mg/dL Glucose (74-99) mg/dL POC Glucose (mg/dL) 122 H 115 H 141 H (75-99) mg/dL Calcium (8.4-10.2) mg/dL 10/28/16 10/28/16 10/28/16 Range/Units 02:03 05:58 07:32 RBC 3.12 L (4.30-5.90) m/uL Hgb 8.9 L (13.0-17.5) gm/dL Hct 29.2 L (39.0-53.0) % MCHC 30.4 L (31.0-37.0) g/dL RDW 17.7 H (11.5-15.5) % PT (9.0-12.0) sec BUN (9-20) mg/dL Glucose (74-99) mg/dL POC Glucose (mg/dL) 124 H 102 H (75-99) mg/dL Calcium (8.4-10.2) mg/dL 10/28/16 10/28/16 10/28/16 Range/Units 07:32 07:32 11:28 RBC (4.30-5.90) m/uL Hgb (13.0-17.5) gm/dL Hct (39.0-53.0) % MCHC (31.0-37.0) g/dL RDW (11.5-15.5) % PT 16.9 H (9.0-12.0) sec BUN 35 H (9-20) mg/dL Glucose 115 H (74-99) mg/dL POC Glucose (mg/dL) 119 H (75-99) mg/dL Calcium 7.6 L (8.4-10.2) mg/dL Assessment and Plan Plan: 1 status post aortic valve replacement and mitral valve repair and the patient is postop day # 29 2 sternal wound dehiscence, post muscle flap, postop day # 13 3 post extubation and the patient was weaned off the mechanical ventilator on 4 bilateral pleural effusion, status post thoracentesis of the right lung and evacuation of 1.6 L of pleural fluid. Chest x-ray was ordered to be done in a.m. 5 left-sided chest tube with diminished output, and the chest tube was removed you days ago. 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 The patient was seen by Dr. Ramos. Recommendations were treating this patient with itraconazole 100 mg by mouth twice a day. 12 Serratia marcescens and Haemophilus influenza in the sputum, currently on IV Zosyn . This was felt to be a ventilator associated pneumonia, treated. And resolved. 13 hypernatremia, improved 14 generalized weakness 15 episodes of change in mental status, possibly secondary to delirium. Plan Continue with warfarin regarding his chronic atrial fibrillation. The dose will be adjusted by cardiology. INR is 1.8 today, Otherwise. Is quite stable at this point. No change in mental status. CT surgery is following up this patient regarding the surgical wound drains. Consider discharge planning eventually to a rehab facility. Continue present supportive care measures, will continue to follow. Chest x-ray was ordered to be done in a.m. Continue to follow. Time with Patient: Less than 30
--- NOTE | 2016-10-28 13:30 | P.PN ---
Subjective Principal diagnosis: Status post mitral valve repair and aortic valve replacement. Status post open-heart surgery, respiratory failure, atrial fibrillation and CHF and sternal dehiscence, pleural effusion. Patient is a status post repair of the mitral valve and also aortic valve replacement. Patient seemed to be doing better. Getting stronger every day. Continues to be in atrial fibrillation with a controlled ventricular response. He seems to be much more alert. Chest x-ray continues to reveal small bilateral pleural effusions, not amendable to thoracentesis. Hemoglobin 8.9 today, creatinine 1.1. The patient did ambulate in the hallway with physical therapy today. Arrangements being made for ECF placement. Objective - Vital Signs Vital signs: Vital Signs Temp 97.5 F L 10/28/16 11:55 Pulse 76 10/28/16 11:56 Resp 18 10/28/16 11:56 BP 109/59 10/28/16 11:55 Pulse Ox 96 10/28/16 11:55 Intake & Output 10/27/16 10/28/16 10/28/16 18:59 06:59 18:59 Intake Total 260 583 Output Total 710 310 680 Balance -450 -310 -97 Weight 112 kg Intake: Oral 260 583 Output: Drainage 30 60 430 Left Lateral Chest 20 0 Medial Chest 10 355 Right Lateral Chest 0 60 75 Urine 680 250 250 Other: Voiding Method Bedside Commode Bedside Commode Bedside Commode Urinal Urinal Urinal Incontinent Incontinent Incontinent ABP, PAP, CO, CI - Last Documented Arterial Blood Pressure 104/50 - Exam GENERAL EXAM: Patient is extubated. He is alert, awake. He is still weak and frail HEENT: Normocephalic. Normal reaction of pupils, equal size, normal range of extraocular motion. No erythema or exudates in the throat. NECK: No masses, no nuchal rigidity. CHEST: No chest wall deformity. LUNGS: [Diminished breath sounds, scattered rhonchi HEART: Irregular heart rhythm ABDOMEN: No hepatosplenomegaly, normal bowel sounds, no guarding or rigidity. SKIN: No rashes CENTRAL NERVOUS SYSTEM: Sedated EXTREMITIES: No cyanosis, clubbing or edema. - Labs CBC & Chem 7: 10/28/16 07:32 10/28/16 07:32 Labs: Abnormal Lab Results - Last 24 Hours (Table) 10/27/16 10/27/16 10/28/16 Range/Units 16:28 21:00 02:03 RBC (4.30-5.90) m/uL Hgb (13.0-17.5) gm/dL Hct (39.0-53.0) % MCHC (31.0-37.0) g/dL RDW (11.5-15.5) % PT (9.0-12.0) sec BUN (9-20) mg/dL Glucose (74-99) mg/dL POC Glucose (mg/dL) 115 H 141 H 124 H (75-99) mg/dL Calcium (8.4-10.2) mg/dL 10/28/16 10/28/16 10/28/16 Range/Units 05:58 07:32 07:32 RBC 3.12 L (4.30-5.90) m/uL Hgb 8.9 L (13.0-17.5) gm/dL Hct 29.2 L (39.0-53.0) % MCHC 30.4 L (31.0-37.0) g/dL RDW 17.7 H (11.5-15.5) % PT 16.9 H (9.0-12.0) sec BUN (9-20) mg/dL Glucose (74-99) mg/dL POC Glucose (mg/dL) 102 H (75-99) mg/dL Calcium (8.4-10.2) mg/dL 10/28/16 10/28/16 Range/Units 07:32 11:28 RBC (4.30-5.90) m/uL Hgb (13.0-17.5) gm/dL Hct (39.0-53.0) % MCHC (31.0-37.0) g/dL RDW (11.5-15.5) % PT (9.0-12.0) sec BUN 35 H (9-20) mg/dL Glucose 115 H (74-99) mg/dL POC Glucose (mg/dL) 119 H (75-99) mg/dL Calcium 7.6 L (8.4-10.2) mg/dL Assessment and Plan (1) Paroxysmal a-fib Status: Acute (2) Status post aortic valve replacement Status: Acute (3) Status post mitral valve repair Status: Acute (4) Congestive heart failure due to valvular disease Status: Acute (5) Histoplasmosis Status: Acute (6) Hypercholesterolemia Status: Acute (7) Hypertension Status: Acute (8) Hypothyroidism (acquired) Status: Acute Plan: Patient seems to be progressing well overall. Arrangements being made for ECF placement. DNP note has been reviewed, I agree with a documented findings and plan of care. Patient was seen and examined.
[2016-10-28] MEDS: MULTIVITAMINS, THERA 1 EACH TAB PO SCH (14:00)
[2016-10-28 16:22] LABS: Glucose,Whole Blood 116 mg/dL (75-99)
--- NOTE | 2016-10-28 16:28 | P.PN ---
Subjective Principal diagnosis: Cardiac debility I had the op to see patient for rehab recheck exemption regarding cardiac debility. Note that he has undergone cardiac surgery and is now in the cardiac rehab phase of his treatment. He has been doing ongoing therapy. PT reports maximal assistance for bed mobility. Minimal assistance to stand and transfer. OT reports maximal assistance for upper dressing and total for lower dressing. Maximal assistance for bathing with second person for safety. Total assistance for toileting. Maximal assistance with second person for safety for basic self-care transfers. Patient and daughter report the patient has been up and ambulating to the far room window and then out the door into the hallway and back. Apparently not using walker currently. Skin: Good color, texture, turgor. General: Obese and comfortable appearance. But with some shortness of breath, especially with activity. Head: Normocephalic, atraumatic. Eyes: Symmetric. Pupils equal round. Ears: Symmetric. Hearing within normal limits. Mouth: Clear. Neck: Supple. . Cardiac: Midline sternotomy clean and dressed. Wearing chest harness. Lungs: Symmetric and breathing comfortably. Abdomen: Soft , nontender. Obese. Extremities: Normal tone. Neurological: Mental status: Alert, cooperative, pleasant. Motor: Normal strength and isolation all 4 limbs. Sensation: Intact throughout. DTRs: Symmetric and equal throughout. Mobility: Sits and stands moderate assistance but no verbal cueing or loss of balance. Did not attempt to ambulate in room as I was by myself, did not have assistive device and most likely would require a following chair. Impression: Cardiac debility. Comments and plan: At this time PT and OT are ongoing. Patient is continued demonstrates some improvement. PT and OT are reporting two-person assistance for activities and mobilities. In fact, I believe that they mean second person for safety. Discussed this with patient, and daughter. At this time, their preference is inpatient rehabilitation at [facility] as opposed to subacute rehab at [facility]. The goal would then be return to home with support and support services. I will attempt to review this with rehab pharmacy coordinator with regard to inpatient rehab. Do not believe that the patient will initially be able to perform 3 hours of therapy per day, this however appears to be a goal that could be achieved within the first week of admission. Note also the first week is immediately R and by the weekend. Status allows patient some time for further convalescence and reconditioning prior to a full 3 hour program. Objective - Vital Signs Vital signs: Vital Signs Temp 92.7 F L 10/28/16 15:50 Pulse 82 10/28/16 15:50 Resp 16 10/28/16 15:50 BP 114/58 10/28/16 15:50 Pulse Ox 96 10/28/16 15:50 Intake & Output 10/27/16 10/28/16 10/28/16 18:59 06:59 18:59 Intake Total 260 583 Output Total 710 310 680 Balance -450 -310 -97 Weight 112 kg Intake: Oral 260 583 Output: Drainage 30 60 430 Left Lateral Chest 20 0 Medial Chest 10 355 Right Lateral Chest 0 60 75 Urine 680 250 250 Other: Voiding Method Bedside Commode Bedside Commode Bedside Commode Urinal Urinal Urinal Incontinent Incontinent Incontinent ABP, PAP, CO, CI - Last Documented Arterial Blood Pressure 104/50 - Labs CBC & Chem 7: 10/28/16 07:32 10/28/16 07:32 Labs: Abnormal Lab Results - Last 24 Hours (Table) 10/27/16 10/27/16 10/28/16 Range/Units 16:28 21:00 02:03 RBC (4.30-5.90) m/uL Hgb (13.0-17.5) gm/dL Hct (39.0-53.0) % MCHC (31.0-37.0) g/dL RDW (11.5-15.5) % PT (9.0-12.0) sec BUN (9-20) mg/dL Glucose (74-99) mg/dL POC Glucose (mg/dL) 115 H 141 H 124 H (75-99) mg/dL Calcium (8.4-10.2) mg/dL 10/28/16 10/28/16 10/28/16 Range/Units 05:58 07:32 07:32 RBC 3.12 L (4.30-5.90) m/uL Hgb 8.9 L (13.0-17.5) gm/dL Hct 29.2 L (39.0-53.0) % MCHC 30.4 L (31.0-37.0) g/dL RDW 17.7 H (11.5-15.5) % PT 16.9 H (9.0-12.0) sec BUN (9-20) mg/dL Glucose (74-99) mg/dL POC Glucose (mg/dL) 102 H (75-99) mg/dL Calcium (8.4-10.2) mg/dL 10/28/16 10/28/16 Range/Units 07:32 11:28 RBC (4.30-5.90) m/uL Hgb (13.0-17.5) gm/dL Hct (39.0-53.0) % MCHC (31.0-37.0) g/dL RDW (11.5-15.5) % PT (9.0-12.0) sec BUN 35 H (9-20) mg/dL Glucose 115 H (74-99) mg/dL POC Glucose (mg/dL) 119 H (75-99) mg/dL Calcium 7.6 L (8.4-10.2) mg/dL Assessment and Plan (1) Acute respiratory failure Status: Acute
[2016-10-28] MEDS: IBUPROFEN ORAL SUSP 100 MG/5 ML CUP PO PRN (17:07)
[2016-10-28] MEDS ORDERED: WARFARIN 10 MG TAB PO ONE (18:00)
--- NOTE | 2016-10-28 20:54 | P.PN ---
Subjective Principal diagnosis: Respiratory failure This is a 71-year-old male who came in the hospital on September 23 and underwent a JAYDE and heart catheterization showing a ruptured chordae tendonae, mitral regurgitation, moderate pulmonary hypertension, with history of paroxysmal atrial fibrillation and heart failure. 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 With this the patient was initiated to itraconazole. He however developed atrial fibrillation. Because of this he was initiated to amiodarone. The dose of itraconazole was reduced by 50%. There is no evidence of any ulcerations of the QT interval while he was in hospital. He eventually was discharged home. It is related that he was not able to obtain the itraconazole. In this is going to be addressed in the coming days. However the brought him to the emergency room feeling very short of breath. He was having abdominal distention with increasing shortness of breath. Through his stay in emergency center he continues to feel more more short of breath. He then developed respiratory failure which required intubation sedation mechanical ventilation. Over the following days he is improved was extubated in his continue to improve. His extensive edema has improved. Especially the massive abdominal edema that he was having. Extremity edema is also improved. He is awake and interactive is improving already being in the chair much better than yesterday. Strength is improved. Looks forward for rehab During show some improvement. He's been seen by Dr. Reyes for potential inpatient rehabilitation Objective - Vital Signs Vital signs: Vital Signs Temp 92.7 F L 10/28/16 15:50 Pulse 82 10/28/16 16:00 Resp 16 10/28/16 16:00 BP 114/58 10/28/16 15:50 Pulse Ox 96 10/28/16 15:50 Intake & Output 10/28/16 10/28/16 10/29/16 06:59 18:59 06:59 Intake Total 819 Output Total 310 770 Balance -310 49 Weight 112 kg Intake: Oral 819 Output: Drainage 60 520 Left Lateral Chest 0 Medial Chest 415 Right Lateral Chest 60 105 Urine 250 250 Other: Voiding Method Bedside Commode Bedside Commode Urinal Urinal Incontinent Incontinent ABP, PAP, CO, CI - Last Documented Arterial Blood Pressure 104/50 - Exam This is a 71-year-old male. comfortable HEENT: Head is atraumatic, normocephalic. Pupils equal, round. Sclerae is anicteric. Conjunctiva slightly pale. Mucous membranes of the mouth are moist. No thrush noted. NECK: Supple. No JVD. No lymphadenopathy. No thyromegaly. LUNGS: There is symmetrical air entry. There are bibasal crackles. No significant bronchial sounds. HEART: Irregular with no no murmur Dressing on sternal wound with no breakthrough bleeding or drainage. Right sided pleural chest tube in place. ABDOMEN: Distinctly distended. Few bowel sounds are noted. Organomegaly is not detected. EXTREMITIES: +1 bilateral pedal edema. No calf tenderness. ORLIN hose in place. NEUROLOGICAL: Awake and interactive hand global head [employer] is much stronger today. Voice is stronger. Mentation is clear. Skin :patient has an extensive dressing to the chest where there was difficulty with the dehiscence. - Labs CBC & Chem 7: 10/28/16 07:32 10/28/16 07:32 Labs: Abnormal Lab Results - Last 24 Hours (Table) 10/27/16 10/28/16 10/28/16 Range/Units 21:00 02:03 05:58 RBC (4.30-5.90) m/uL Hgb (13.0-17.5) gm/dL Hct (39.0-53.0) % MCHC (31.0-37.0) g/dL RDW (11.5-15.5) % PT (9.0-12.0) sec BUN (9-20) mg/dL Glucose (74-99) mg/dL POC Glucose (mg/dL) 141 H 124 H 102 H (75-99) mg/dL Calcium (8.4-10.2) mg/dL 10/28/16 10/28/16 10/28/16 Range/Units 07:32 07:32 07:32 RBC 3.12 L (4.30-5.90) m/uL Hgb 8.9 L (13.0-17.5) gm/dL Hct 29.2 L (39.0-53.0) % MCHC 30.4 L (31.0-37.0) g/dL RDW 17.7 H (11.5-15.5) % PT 16.9 H (9.0-12.0) sec BUN 35 H (9-20) mg/dL Glucose 115 H (74-99) mg/dL POC Glucose (mg/dL) (75-99) mg/dL Calcium 7.6 L (8.4-10.2) mg/dL 10/28/16 10/28/16 Range/Units 11:28 16:21 RBC (4.30-5.90) m/uL Hgb (13.0-17.5) gm/dL Hct (39.0-53.0) % MCHC (31.0-37.0) g/dL RDW (11.5-15.5) % PT (9.0-12.0) sec BUN (9-20) mg/dL Glucose (74-99) mg/dL POC Glucose (mg/dL) 119 H 116 H (75-99) mg/dL Calcium (8.4-10.2) mg/dL Laboratory Results WBC 7.9 k/uL (3.8-10.6) 10/28/16 07:32 RBC 3.12 m/uL (4.30-5.90) L 10/28/16 07:32 Hgb 8.9 gm/dL (13.0-17.5) L 10/28/16 07:32 Hct 29.2 % (39.0-53.0) L 10/28/16 07:32 MCV 93.5 fL (80.0-100.0) 10/28/16 07:32 MCH 28.4 pg (25.0-35.0) 10/28/16 07:32 MCHC 30.4 g/dL (31.0-37.0) L 10/28/16 07:32 RDW 17.7 % (11.5-15.5) H 10/28/16 07:32 Plt Count 212 k/uL (150-450) 10/28/16 07:32 Neutrophils % 81 % 10/25/16 05:31 Neutrophils % (Manual) 85.5 % 10/08/16 04:20 Band Neutrophils % 0.5 % 10/08/16 04:20 Lymphocytes % 7 % 10/25/16 05:31 Lymphocytes % (Manual) 5.5 % 10/08/16 04:20 Monocytes % 4 % 10/25/16 05:31 Monocytes % (Manual) 4.0 % 10/08/16 04:20 Eosinophils % 5 % 10/25/16 05:31 Eosinophils % (Manual) 3.0 % 10/08/16 04:20 Basophils % 1 % 10/25/16 05:31 Metamyelocytes % 1.0 % 10/08/16 04:20 Myelocytes % 0.5 % 10/08/16 04:20 Neutrophils # 7.9 k/uL (1.3-7.7) H 10/25/16 05:31 Neutrophils # (Manual) 16.2 k/uL (1.3-7.7) H 10/08/16 04:20 Lymphocytes # 0.7 k/uL (1.0-4.8) L 10/25/16 05:31 Lymphocytes # (Manual) 1.0 k/uL (1.0-4.8) 10/08/16 04:20 Monocytes # 0.4 k/uL (0-1.0) 10/25/16 05:31 Monocytes # (Manual) 0.8 k/uL (0-1.0) 10/08/16 04:20 Eosinophils # 0.5 k/uL (0-0.7) 10/25/16 05:31 Eosinophils # (Manual) 0.6 k/uL (0-0.7) 10/08/16 04:20 Basophils # 0.1 k/uL (0-0.2) 10/25/16 05:31 Nucleated RBCs 0 /100 WBC (0-0) 10/08/16 04:20 Manual Slide Review Performed 10/08/16 04:20 Large Platelets Present 10/06/16 21:00 Polychromasia Present 10/08/16 04:20 Hypochromasia Marked 10/28/16 07:32 Poikilocytosis (manual Present 10/08/16 04:20 Poikilocytosis Moderate 10/28/16 07:32 Anisocytosis Slight 10/28/16 07:32 Macrocytosis Slight 10/25/16 05:31 Ovalocytes Present 10/06/16 21:00 PT 16.9 sec (9.0-12.0) H 10/28/16 07:32 INR 1.8 (<1.1) 10/28/16 07:32 APTT 28.1 sec (22.0-30.0) 10/22/16 05:00 D-Dimer 6.31 mg/L FEU (<0.60) H 10/06/16 21:00 Sample Site shyanne 10/16/16 04:45 ABG pH 7.46 (7.35-7.45) H 10/16/16 04:45 ABG pCO2 41 mmHg (35-45) 10/16/16 04:45 ABG pO2 101 mmHg (83-108) 10/16/16 04:45 ABG HCO3 29 mmol/L (21-25) H 10/16/16 04:45 ABG Total CO2 30 mmol/L (19-24) H 10/16/16 04:45 ABG O2 Saturation 98.0 % (94-97) H 10/16/16 04:45 ABG Base Excess 5.3 mmol/L 10/16/16 04:45 FiO2 50 % 10/16/16 04:45 Sodium 137 mmol/L (137-145) 10/28/16 07:32 Potassium 4.3 mmol/L (3.5-5.1) 10/28/16 07:32 Chloride 106 mmol/L (98-107) 10/28/16 07:32 Carbon Dioxide 22 mmol/L (22-30) 10/28/16 07:32 Anion Gap 9 mmol/L 10/28/16 07:32 BUN 35 mg/dL (9-20) H 10/28/16 07:32 Creatinine 1.11 mg/dL (0.66-1.25) 10/28/16 07:32 Est GFR (MDRD) Af Amer >60 (>60 ml/min/1.73 sqM) 10/28/16 07:32 Est GFR (MDRD) Non-Af >60 (>60 ml/min/1.73 sqM) 10/28/16 07:32 Glucose 115 mg/dL (74-99) H 10/28/16 07:32 POC Glucose (mg/dL) 116 mg/dL (75-99) H 10/28/16 16:21 POC Glu Chemical Strength Tester UMESH Yolette, Yael 10/28/16 16:[address] Glu mg/dL 120 mg/dL 10/07/16 05:18 Hemoglobin A1c 5.8 % (4.2-6.1) 10/07/16 05:18 Plasma Lactic Acid Samir 1.0 mmol/L (0.7-2.0) 10/07/16 05:18 Calcium 7.6 mg/dL (8.4-10.2) L 10/28/16 07:32 Ionized Calcium Guille 4.4 mg/dL (4.5-5.3) L 10/15/16 05:00 Phosphorus 4.5 mg/dL (2.5-4.5) 10/25/16 05:31 Magnesium 2.1 mg/dL (1.6-2.3) 10/25/16 05:31 Total Bilirubin 0.9 mg/dL (0.2-1.3) 10/25/16 05:31 AST 33 U/L (17-59) 10/25/16 05:31 ALT 43 U/L (21-72) 10/25/16 05:31 Alkaline Phosphatase 70 U/L (38-126) 10/25/16 05:31 Total Creatine Kinase 736 U/L (55-170) H 10/06/16 09:50 CK-MB (CK-2) 7.2 ng/mL (0.0-2.4) H* 10/06/16 09:50 CK-MB (CK-2) Rel Index 1.0 10/06/16 09:50 Troponin I 1.510 ng/mL (0.000-0.034) H* 10/06/16 09:50 NT-Pro-B Natriuret Pep 6520 pg/mL 10/06/16 09:50 Total Protein 5.2 g/dL (6.3-8.2) L 10/25/16 05:31 Albumin 2.4 g/dL (3.5-5.0) L 10/25/16 05:31 TSH 49.300 mIU/L (0.465-4.680) H 10/21/16 05:15 Free T4 1.05 ng/dL (0.78-2.19) 10/21/16 05:15 Urine Color Dark Yellow 10/06/16 18:30 Urine Appearance Cloudy (Clear) 10/06/16 18:30 Urine pH 5.0 (5.0-8.0) 10/06/16 18:30 Ur Specific [place] 1.018 (1.001-1.035) 10/06/16 18:30 Urine Protein Trace (Negative) H 10/06/16 18:30 Urine Glucose (UA) Negative (Negative) 10/06/16 18:30 Urine Ketones Negative (Negative) 10/06/16 18:30 Urine Blood Negative (Negative) 10/06/16 18:30 Urine Nitrite Negative (Negative) 10/06/16 18:30 Urine Bilirubin 1+ (Negative) H 10/06/16 18:30 Urine Urobilinogen 4.0 mg/dL (<2.0) 10/06/16 18:30 Ur Leukocyte Esterase Negative (Negative) 10/06/16 18:30 Urine WBC 10 /hpf (0-5) H 10/06/16 18:30 Ur Squamous Epith Cells 2 /hpf (0-4) 10/06/16 18:30 Calcium Oxalate Crystal Occasional /hpf (None) H 10/06/16 18:30 Amorphous Sediment Occasional /hpf (None) H 10/06/16 18:30 Hyaline Casts 79 /lpf (0-2) H 10/06/16 18:30 Urine Mucus Rare /hpf (None) H 10/06/16 18:30 Vancomycin Trough 15.0 ug/mL 10/17/16 04:10 Digoxin 0.9 ng/mL 10/17/16 20:36 Blood Type O Positive 10/14/16 13:52 Blood Type Recheck No 10/14/16 13:52 Antibody Screen NEGATIVE 10/14/16 13:52 Crossmatch See Detail 10/14/16 13:52 Transfuse Platelets 10/15/16 10/14/16 13:52 Spec Expiration Date 10/17/2016235110/14/16 13:52 Microbiology 10/15/16 14:40 Chest Anaerobic Culture - Final 10/15/16 14:40 Chest Anaerobic Culture - Final 10/15/16 14:40 Chest Anaerobic Culture - Final 10/15/16 14:40 Chest Gram Stain - Final 10/15/16 14:40 Chest Tissue Culture - Final 10/15/16 14:40 Chest Gram Stain - Final 10/15/16 14:40 Chest Wound Culture - Final 10/15/16 14:40 Chest Gram Stain - Final 10/15/16 14:40 Chest Wound Culture - Final 10/11/16 06:40 Blood Blood Culture - Final No Growth after 144 hours 10/11/16 11:47 Catheter Tip Catheter Tip Culture - Final 10/06/16 10:00 Blood Blood Culture - Final No Growth after 144 hours 10/06/16 21:00 Sputum Gram Stain - Final 10/06/16 21:00 Sputum Sputum Culture - Final Haemophilus influenzae Serratia marcescens Assessment and Plan (1) Acute respiratory failure Narrative/Plan: 71-year-old male with history of thyroid cancer recently was hospitalized at which point in time was having difficulties with congestive heart failure. He was noted evidence of aortic valve insufficiency and mitral valve regurgitation. There is also some lymphadenopathy noted within the chest. As he was taken to the operating room and aortic valve replacement occurred as well as mitral valve repair. Biopsy of mediastinal lymph nodes also occurred. 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 Patient was initiated to itraconazole. He however developed atrial fibrillation and was placed on amiodarone and the itraconazole dose was reduced. Upon discharge he has not been able to continue the itraconazole. However is only been home for a very short period of time we developed the progressive shortness of breath. At admission he has extensive edema in his abdominal cavity as well as evidence of congestive heart failure. Concerns to pneumonia given his significant leukocytosis and antibiotic therapy was begun with piperacillin tazobactam and vancomycin. Sputum culture with Haemophilus and Serratia resistant to Unasyn susceptible to Zosyn. We Will Continue Zosyn, Ongoing aggressive supportive care is continuing Cardiothoracic surgery is following after the reconstruction of the sternum, cultures are negative so far. No evidence of any infection Patient had extensive leukocytosis at admission. This is now improved. Zosyn antibiotic therapy is discontinued. Fortunately the sternum cultures are all negative and no evidence of deep infection of the sternum at this time. He is doing well off of antibiotic therapy has being monitored. Encouraged for his high protein diet to help his healing Is being evaluated for transfer to inpatient rehabilitation to help him with his recovery. Status: Acute (2) Status post aortic valve replacement Status: Acute (3) Status post mitral valve repair Status: Acute (4) Histoplasmosis Status: Acute
[2016-10-28 21:20] LABS: Glucose,Whole Blood 118 mg/dL (75-99)
[2016-10-29] MEDS: IBUPROFEN ORAL SUSP 100 MG/5 ML CUP PO PRN (00:37)
[2016-10-29] MEDS: IBUPROFEN ORAL SUSP 2,400 MG/120 ML BOTTLE PO PRN ×3 (01:23→20:42)
[2016-10-29 06:24] LABS: Glucose,Whole Blood 115 mg/dL (75-99)
[2016-10-29] MEDS: INSULIN LISPRO (humaLOG) 300 UNIT/3 ML VIAL SQ SCH ×4 (06:37→20:47)
[2016-10-29] MEDS: LEVOTHYROXINE 75 MCG TAB PO SCH (06:47)
[2016-10-29] MEDS: PANTOPRAZOLE 40 MG TABLET PO SCH (06:47)
[2016-10-29 07:24] LABS: Anisocytosis Slight; CH 28.6; HCT 25.7 % (39.0-53.0); HDW 4.25; HGB 7.8 gm/dL (13.0-17.5); Hypochromasia Marked; MCH 27.9 pg (25.0-35.0); MCHC 30.1 g/dL (31.0-37.0); MCV 92.8 fL (80.0-100.0); Mean Platelet Volume 7.6; Poikilocytosis Moderate; RBC 2.77 m/uL (4.30-5.90); RDW 17.8 % (11.5-15.5)
[2016-10-29 07:36] LABS: Anion Gap 5 mmol/L; Blood Urea Nitrogen 38 mg/dL (9-20); Calcium 6.9 mg/dL (8.4-10.2); Carbon Dioxide 27 mmol/L (22-30); Chloride 101 mmol/L (98-107); Glucose 93 mg/dL (74-99); Non-African American GFR(MDRD) 52 (>60 ml/min/1.73 sqM); Potassium 3.7 mmol/L (3.5-5.1); Sodium 133 mmol/L (137-145)
[2016-10-29 07:37] LABS: INR 2.4 (<1.1); Prothrombin Time 23.2 sec (9.0-12.0)
[2016-10-29] MEDS: IPRATROPIUM-ALBUTEROL 3 ML NEB INHALATION SCH ×4 (08:17→20:12)
[2016-10-29] MEDS: ASPIRIN 81 MG CHEW PO SCH (08:30)
[2016-10-29] MEDS: METOPROLOL TARTRATE 25 MG TAB PO SCH ×2 (08:30→20:46)
[2016-10-29] MEDS: DIGOXIN 125 MCG TAB PO SCH (08:30)
[2016-10-29] MEDS: ENOXAPARIN 120 MG/0.8 ML SYRINGE SQ SCH (08:31)
[2016-10-29 11:49] LABS: Glucose,Whole Blood 127 mg/dL (75-99)
[2016-10-29] MEDS: MULTIVITAMINS, THERA 1 EACH TAB PO SCH (12:00)
--- NOTE | 2016-10-29 12:07 | P.PN ---
Subjective Principal diagnosis: Status post aortic valve replacement and mitral valve repair postoperative day # 29 This is a 61-year-old male patient was undergone a cardiac surgery which involved aVR with mitral valve repair on 09/29/2016. The patient was discharged home on 10/04/2016. Following that the patient was readmitted to the hospital because of increased shortness of breath, acute respiratory failure , cough, syncope and sternal wound dehiscence. The patient was seen by cardiology thoracic surgery and he was taken back to the operating room where he underwent a closure of the sternal wound with a muscle flap on 10/15/2016. The patient was extubated off the mechanical ventilator on 10/16/2016. He initially had difficulties with swallowing yet he is currently doing better. He developed a right-sided pleural effusion he had an attempt for thoracentesis was done yesterday by Dr. Armando and this failed. Apparently there was no adequate fluid drainage during the procedure. As such the procedure was aborted. The patient has a left-sided chest tube in place which is draining approximately less than 100 mL over the past 24 hours and the plan is to take of the chest tube. He is actually taking well at 6 L/m nasal cannula. His is or 82. He is hemodynamically stable. He is pulling approximately 500 on the incentive spirometer. The patient has MEGHAN drains on his sternal wound a total of 3 and the drainage is not active at this point. The patient is hemodynamically stable on no pressors. His CODE STATUS is full at this point. On 10/19/2016 I'm seeing this patient in follow-up. He is doing well. He is sitting up on a bed and he is on 5 L of oxygen by nasal cannula. His chest x- ray still showing better pleural effusion worse on the right and the plan is to proceed with thoracentesis this morning. He is tolerating his diet. No nausea. No vomiting. No chest pain. Sternum stable clean and intact. No fever. No chills. White cell count is at 10.0 and hemoglobin is at 8.4 which is stable. The patient remains on IV Zosyn. I discussed the case with Dr. Ramos and we'll keep the Sporanox on hold for the time being due to concerns of drug interaction. The patient has had Haemophilus and Serratia in his sputum. The MEGHAN drains are still in place. MEGHAN drain #1 has put out 20 mL and # 2 has put out 80 mL of urine output is around 50 mL an hour. On 10/20/2016 I'm seeing this patient in follow-up. The patient has been weaned down to 4 L of oxygen by nasal cannula. He underwent a thoracentesis of the right lung yesterday and total of 1.6 L of pleural fluid was aspirated from the right lung. Patient is doing well. The patient is not having any major respiratory difficulties. The patient was able to breathe better following the procedure. No significant cough or sputum production. The patient has Haemophilus and consideration his sputum and the patient is still on IV Zosyn. MEGHAN drain is still in place. No chills. No fever. He is gradually increasing his oral intake. No other significant events over the past 24 hours. He is having episodes of paroxysmal atrial fibrillation and the patient is on no anti- coagulation at this point. This will be further discussed with cardiology. On 10/21/2016 the patient is being seen in follow-up. He is doing well. No specific complaints. His follow-up chest x-ray from today shows improving bibasilar pulmonary infiltrates with moderate amount of infiltration still on the right along with some residual pleural effusion. He was started on long- term anticoagulation. He is in atrial fibrillation. Is tolerating his diet. He is weak however his getting stronger and is able to sit up on a chair. MEGHAN drains are in place and the output in the 3 tubes are still active and they will be kept in place for the time being. On 10/22/2016, the patient is being seen in follow-up. He is on of getting slightly confused yet he is not agitated and, comfortable. Hemodynamically stable. No significant rest or distress. Chest x-ray findings are essentially stable with atelectatic changes and small effusion the lung bases bilaterally. MEGHAN drains are all in place. Surgery is monitoring the output and managing the MEGHAN drains. Meanwhile, the patient is being migrated and INR is subtherapeutic at 1.8. He remains in atrial fibrillation with a controlled rate. Hemoglobin is stable. Patient is tolerating his diet. No nausea. No vomiting. No abdominal pain. He has trace edema in lower extremities bilaterally. No other significant events over the past 24 hours. On 10/23/2016 the patient is being seen on the medical floor. The patient is on telemetry unit. He is doing well. A bit lethargic and on and off confused. For the most part he is comfortable. On examination, he has diminished breath sounds on the right and I suspect that is the recommendation of the pleural fluid on the right side. Meanwhile, the patient on 2 L of oxygen by nasal cannula. No breathing difficulties. MEGHAN drains are in place. He has edematous extremities. PT/INR is subtherapeutic. Hemoglobin stable at 8.4. On 10/24/2016, the patient is sitting up on a chair. Mentation is appropriate. MEGHAN drains are in place. Surgical wound site is clean and intact and dry. The patient has diminished breath sounds in the lung bases. No fever. No chills. No night sweats. No other significant events overnight. He received 2 mg of warfarin yesterday and INR is subtherapeutic at 1.2. He continues to be atrial fibrillation at the rate is controlled for now and he is hemodynamically stable. Patient was reevaluated today on 10/25/2016, seems to be doing relatively well, sitting up in the chair, seems to be very appropriate, in no form of respiratory distress, surgical wound seems to be clean and intact, patient is denying any shortness of breath no cough no wheezing. He has diminished breath sounds at the bases, CBC was relatively normal except for hemoglobin of 8.6. Electrolytes are normal renal profile is relatively normal INR is 1.2 lashes subtherapeutic, his last chest x-ray was on 10/22/2016. Patient was reevaluated today on 10/26/2016, patient is sitting up in the chair, relatively asymptomatic , continues to have some swelling around his lower extremities. But denies any shortness of breath no cough no wheezing. Denies to have MEGHAN drains, he is becoming more and more active in the room, and I believe we are considering rehab referral at some point. Labs today showed a normal CBC hemoglobin however is 8.5. INR is 1.3, basic metabolic profile is normal BUN is 32 creatinine is 1.13. Chest x-ray was ordered to be done in a.m. On 10/27/2016, patient is remains about the same, patient is relatively asymptomatic, minimal swelling in lower extremities noted, discharge planning is in progress for possible rehab facility. Chest x-ray is reassuring cardiomegaly is noted, and small bilateral pleural effusions are noted not large enough to consider thoracentesis. Right is more so than left. CBC is relatively unremarkable hemoglobin is 8.3 basic metabolic profile is relatively normal creatinine is 1.18. On 10/28/2016, patient is about the same, no changes over the last 24 hours, and overall the patient is feeling stronger, feeling better, labs are basically unremarkable including CBC and basic metabolic profile as well as renal profile last chest x-ray was on 10/27/2016, which I reviewed and noted above. Patient is awaiting possible referral to a rehab facility, we are considering sending him [facility] if patient is felt to be a good candidate for the facility. On 10/29/2016, patient is doing well, no major issues over the last 24 hours, he was evaluated by Dr. Christina, and he is not felt to be a good candidate for inpatient rehab at [facility]. He is felt to be too weak for the rehab at the facility. Patient denies any shortness of breath. Labs were reviewed. Hemoglobin is 7.8. Creatinine is 1.34. Objective - Vital Signs Vital signs: Vital Signs Temp 97.7 F 10/29/16 11:37 Pulse 82 10/29/16 11:37 Resp 18 10/29/16 11:37 BP 98/52 10/29/16 11:37 Pulse Ox 98 10/29/16 11:37 Intake & Output 10/28/16 10/29/16 10/29/16 18:59 06:59 18:59 Intake Total 819 400 Output Total 770 555 25 Balance 49 -555 375 Weight 125 kg 92.9 kg Intake: Oral 819 400 Output: Drainage 520 180 25 Left Lateral Chest 0 165 Medial Chest 415 15 25 Right Lateral Chest 105 0 Urine 250 375 Stool 0 Other: Voiding Method Bedside Commode Bedside Commode Bedside Commode Urinal Urinal Urinal Incontinent Incontinent Incontinent # Voids 1 # Bowel Movements 1 ABP, PAP, CO, CI - Last Documented Arterial Blood Pressure 104/50 - Exam Head exam was generally normal. There was no scleral icterus or corneal arcus. Mucous membranes were moist.Neck was supple and without jugular venous distension, thyromegaly, or carotid bruits. Carotids were easily palpable bilaterally. There was no adenopathy. Lung sounds are diminished in the lung base bilaterally especially in the right lung base. Heart sounds are regular, positive S1-S2 and there is no significant murmurs appreciated. Sternum was stable clean and intact and the patient's sternal wound is covered with a Aquacel silver dressing. No active drainage from the wounds.Abdominal exam revealed normal bowel sounds. The abdomen was soft, non-tender, and without masses, organomegaly, or appreciable enlargement of the abdominal aorta.Examination of the extremities revealed easily palpable radial, femoral and pedal pulses. There was no cyanosis, 1+ bipedal edema is noted. - Labs CBC & Chem 7: 10/29/16 06:50 10/29/16 06:45 Labs: Abnormal Lab Results - Last 24 Hours (Table) 10/28/16 10/28/16 10/29/16 Range/Units 16:21 21:18 06:23 RBC (4.30-5.90) m/uL Hgb (13.0-17.5) gm/dL Hct (39.0-53.0) % MCHC (31.0-37.0) g/dL RDW (11.5-15.5) % PT (9.0-12.0) sec Sodium (137-145) mmol/L BUN (9-20) mg/dL Creatinine (0.66-1.25) mg/dL POC Glucose (mg/dL) 116 H 118 H 115 H (75-99) mg/dL Calcium (8.4-10.2) mg/dL 10/29/16 10/29/16 10/29/16 Range/Units 06:45 06:50 06:50 RBC 2.77 L (4.30-5.90) m/uL Hgb 7.8 L (13.0-17.5) gm/dL Hct 25.7 L (39.0-53.0) % MCHC 30.1 L (31.0-37.0) g/dL RDW 17.8 H (11.5-15.5) % PT 23.2 H (9.0-12.0) sec Sodium 133 L (137-145) mmol/L BUN 38 H (9-20) mg/dL Creatinine 1.34 H (0.66-1.25) mg/dL POC Glucose (mg/dL) (75-99) mg/dL Calcium 6.9 L (8.4-10.2) mg/dL 10/29/16 Range/Units 11:44 RBC (4.30-5.90) m/uL Hgb (13.0-17.5) gm/dL Hct (39.0-53.0) % MCHC (31.0-37.0) g/dL RDW (11.5-15.5) % PT (9.0-12.0) sec Sodium (137-145) mmol/L BUN (9-20) mg/dL Creatinine (0.66-1.25) mg/dL POC Glucose (mg/dL) 127 H (75-99) mg/dL Calcium (8.4-10.2) mg/dL Assessment and Plan Plan: 1 status post aortic valve replacement and mitral valve repair and the patient is postop day # 30 2 sternal wound dehiscence, post muscle flap, postop day # 14 3 post extubation and the patient was weaned off the mechanical ventilator on 4 bilateral pleural effusion, status post thoracentesis of the right lung and evacuation of 1.6 L of pleural fluid. Chest x-ray was ordered to be done in a.m. 5 left-sided chest tube with diminished output, and the chest tube was removed you days ago. 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 The patient was seen by Dr. Ramos. Recommendations were treating this patient with itraconazole 100 mg by mouth twice a day. 12 Serratia marcescens and Haemophilus influenza in the sputum, currently on IV Zosyn . This was felt to be a ventilator associated pneumonia, treated. And resolved. 13 hypernatremia, improved 14 generalized weakness 15 episodes of change in mental status, possibly secondary to delirium. Plan Continue with warfarin regarding his chronic atrial fibrillation. The dose will be adjusted by cardiology. INR is 2.4 today, Otherwise. Is quite stable at this point. No change in mental status. CT surgery is following up this patient regarding the surgical wound drains. Consider discharge planning eventually to a rehab facility. Continue present supportive care measures, will continue to follow. Time with Patient: Less than 30
--- NOTE | 2016-10-29 13:33 | P.PN ---
Subjective Principal diagnosis: Status post mitral valve repair and aortic valve replacement This is a pleasant 71-year-old gentleman who is status post repair of mitral valve and aortic valve replacement. He is getting stronger each day and is doing quite a bit better. His x-ray continues to reveal small I lateral pleural effusions, not amenable to thoracentesis. Hemoglobin today 7.8, creatinine 1.34 and BUN of 38. Patient has been working with physical therapy. Arrangements are being made for patient to go to [facility] for inpatient rehab. Objective - Vital Signs Vital signs: Vital Signs Temp 97.7 F 10/29/16 11:37 Pulse 82 10/29/16 11:37 Resp 18 10/29/16 11:37 BP 98/52 10/29/16 11:37 Pulse Ox 98 10/29/16 11:37 Intake & Output 10/28/16 10/29/16 10/29/16 18:59 06:59 18:59 Intake Total 819 640 Output Total 770 555 25 Balance 49 -555 615 Weight 125 kg 92.9 kg Intake: Oral 819 640 Output: Drainage 520 180 25 Left Lateral Chest 0 165 Medial Chest 415 15 25 Right Lateral Chest 105 0 Urine 250 375 Stool 0 Other: Voiding Method Bedside Commode Bedside Commode Bedside Commode Urinal Urinal Urinal Incontinent Incontinent Incontinent # Voids 1 # Bowel Movements 1 ABP, PAP, CO, CI - Last Documented Arterial Blood Pressure 104/50 - Exam PHYSICAL EXAMINATION: HEENT: Head is atraumatic, normocephalic. Pupils equal, round. Neck is supple. There is no elevated jugular venous pressure. HEART EXAMINATION: Heart sounds regular, S1 and S2 normal. CHEST EXAMINATION: Lungs reveal diminished air entry bilaterally scattered rhonchi. No chest wall tenderness is noted on palpation or with deep breathing. Midsternal incision with dressing dry and intact ABDOMEN: Soft, nontender. Bowel sounds are heard. No organomegaly noted. EXTREMITIES: 2+ peripheral pulses with no evidence of peripheral edema and no calf tenderness noted. NEUROLOGIC patient is awake, alert and oriented. . - Labs CBC & Chem 7: 10/29/16 06:50 10/29/16 06:45 Labs: Abnormal Lab Results - Last 24 Hours (Table) 10/28/16 10/28/16 10/29/16 Range/Units 16:21 21:18 06:23 RBC (4.30-5.90) m/uL Hgb (13.0-17.5) gm/dL Hct (39.0-53.0) % MCHC (31.0-37.0) g/dL RDW (11.5-15.5) % PT (9.0-12.0) sec Sodium (137-145) mmol/L BUN (9-20) mg/dL Creatinine (0.66-1.25) mg/dL POC Glucose (mg/dL) 116 H 118 H 115 H (75-99) mg/dL Calcium (8.4-10.2) mg/dL 10/29/16 10/29/16 10/29/16 Range/Units 06:45 06:50 06:50 RBC 2.77 L (4.30-5.90) m/uL Hgb 7.8 L (13.0-17.5) gm/dL Hct 25.7 L (39.0-53.0) % MCHC 30.1 L (31.0-37.0) g/dL RDW 17.8 H (11.5-15.5) % PT 23.2 H (9.0-12.0) sec Sodium 133 L (137-145) mmol/L BUN 38 H (9-20) mg/dL Creatinine 1.34 H (0.66-1.25) mg/dL POC Glucose (mg/dL) (75-99) mg/dL Calcium 6.9 L (8.4-10.2) mg/dL 10/29/16 Range/Units 11:44 RBC (4.30-5.90) m/uL Hgb (13.0-17.5) gm/dL Hct (39.0-53.0) % MCHC (31.0-37.0) g/dL RDW (11.5-15.5) % PT (9.0-12.0) sec Sodium (137-145) mmol/L BUN (9-20) mg/dL Creatinine (0.66-1.25) mg/dL POC Glucose (mg/dL) 127 H (75-99) mg/dL Calcium (8.4-10.2) mg/dL Assessment and Plan Plan: Assessment and plan #1 paroxysmal atrial fibrillation 2 status post mitral valve repair 3 status post aortic valve replacement #4 congestive heart failure due to valvular disease 5 hypercholesterolemia #6 hypertension 7 hypothyroidism From a cardiac standpoint, medications were reviewed and will continue the same. Pins are being made for transfer to inpatient rehab at [facility]. EARTH MOVING TECHNICIAN note has been reviewed, I agree with a documented findings and plan of care. Patient was seen and examined.
--- NOTE | 2016-10-29 14:05 | CDI ---
In responding to this query, please exercise your independent professional judgment. The [facility] Coding Staff and Clinical Documentation Specialists appreciate your assistance in clarifying documentation, maintaining compliance with coding guidelines, accurately documenting patients condition and capturing severity of illness. The fact that a question is asked does not imply that any particular answer is desired or expected. Communication forms are a method of clarifying documentation and are not made part of the Legal Health Record. Thank you in advance for your clarification. Last Revision, April 2015 [address] [place] [address] Documentation Clarification Form Date: 10/19/2016 2:20:00 PM From: Gerson Sawyer, RN, BSN, CDI Admit Date: 10/06/2016 11:17:00 AM Patient Name: Jn Stevenson Visit Number: [id number] Dr. Jae Riggs: Per your operative note, a "debridement" was performed on 10/15/16. There was no further documentation as to the type of debridement(excisional or non- excisional) that was done. History/Risk Factors: 71 yo male with recent atrial valve replacement, mitral valve repair presents after EMS was called by for what appeared to be seizure like activity. Upon EMS arrival, he was noted to have some DARYA. Clinical Indicators: CT chest showed "sternal dehiscence". Per the operative report "there was a large amount of fibrinous material present along with some small amount of old clot. This was all debrided out from both this region of the sternum and from the mediastinum, cultures were sent of the fluid and of the tissue. Once we had debrided back all the tissue, having clearly identified no necrotic bone and no evidence of acute infection". In order to capture the severity of condition and code the appropriate procedure could you please document the following: Excisional debridement (the removal of necrotic, devitalized tissue or slough by means of cutting away of tissue) Non-excisional debridement (the removal of necrotic, devitalized tissue or slough by means of flushing, brushing, or washing. (Irrigation) Other; with explanation for clinical findings Unable to determine (no explanation for clinical findings) Please document in your progress notes and discharge summary in order to capture severity of illness and risk of mortality. Include clinical findings that support your diagnosis. FYI: Press F11 to launch patient chart. Place X here if this finding has no clinical significance, is not applicable or if you are not able to provide any additional documentation. WILSON
--- NOTE | 2016-10-29 15:13 | P.DS ---
Providers Date of admission: 10/06/16 11:17 Attending physician: Jae Riggs Consults: 10/06/16 12:23 Consult Physician Routine Consulting Provider: Johnny Ramos Consult Reason/Comments: leukocytosis post cabg Do you want consulting provider notified?: Already Contacted Consult Physician Routine Consulting Provider: Broderick Campos Consult Reason/Comments: questionable seizure Do you want consulting provider notified?: Yes 10/06/16 14:12 Consult Physician Routine Consulting Provider: Dayami Guadarrama Consult Reason/Comments: recent valve surgery Do you want consulting provider notified?: Yes 10/06/16 16:33 Consult Physician Routine Consulting Provider: Shanthi Gaffney Consult Reason/Comments: tail edger, icu admit, post double valve Do you want consulting provider notified?: Yes 10/07/16 17:48 Consult Physician Routine Consulting Provider: Jae Riggs Consult Reason/Comments: post cabg Do you want consulting provider notified?: Already Contacted 10/13/16 14:21 Consult Physician Routine Consulting Provider: Alcon Dillon Consult Reason/Comments: medical/diabetic managment Do you want consulting provider notified?: Already Contacted 10/18/16 14:26 Consult Physician Routine Consulting Provider: Marcelino Christina Consult Reason/Comments: acute rehab eval Do you want consulting provider notified?: Yes Primary care physician: Jamal Goodwin - Ralph Diagnosis(es) (1) Status post aortic valve replacement Current Visit: Yes Status: Acute (2) Status post mitral valve repair Current Visit: Yes Status: Acute (3) Acute renal failure Current Visit: Yes Status: Acute (4) Neutrophilic leukocytosis Current Visit: Yes Status: Acute (5) Atrial fibrillation with RVR Current Visit: No Status: Acute (6) Histoplasmosis Current Visit: No Status: Acute (7) Hypercholesterolemia Current Visit: No Status: Acute (8) Hypertension Current Visit: No Status: Acute (9) Hypothyroidism (acquired) Current Visit: No Status: Acute (10) Obesity Current Visit: No Status: Acute (11) Paroxysmal atrial fibrillation Current Visit: No Status: Acute (12) Deep vein thrombosis (DVT) of right lower extremity Current Visit: Yes Status: Acute Hospital Course: FINAL DIAGNOSIS: 1.[Acute hypoxic respiratory failure requiring mechanical ventilation, present on admission] 2.[Dehiscence of sternal wires] 3.[ left and right pleural effusion] 4.[ right lower extremity DVT extending from the common femoral vein down to the upper calf veins] 5.[ Paroxysmal atrial fibrillation] 6.[Status post aortic valve replacement, mitral valve repair] 7.[Acute renal failure] 8.[Neutrophilic leukocytosis] 9.[Hypercholesterolemia] 10.[Hypertension] 11.[Acquired hypothyroidism] 12.[Obesity] 13.[Sputum culture positive for Haemophilus influenza, Serratia marcescens] PRINCIPAL PROCEDURE: [] 1.[ sternal exploration due to sternal debridement and wound closure with bilateral pectoralis major myocutaneous advancement flaps] 2.[ placement of left chest tube for left pleural effusion] 3.[ right thoracentesis for right pleural effusion with drainage of 1.5 L of dark red tinged fluid] HISTORY OF PRESENT ILLNESS: [This 71-year-old gentleman had a complex mitral valve repair using a 30 mm david 3-D ring, aortic valve replacement using a #27 mm Espinal bovine pericardial valve, modified Frederick maze, epi-aortic ultrasonography, and mediastinal lymph node biopsy on 09/27/2016. He was discharged home on 10/04/2016 in the care of his with home care to follow. On 10/06/2016 his called to say that the patient had what she believed to be a seizure which lasted approximately 1 minute with the patient going completely stiff, shaking all over, and staring blankly, after which he appeared to be a little dazed and confused. She proceeded to call 911 and the patient was brought to the emergency room. As he was being evaluated he was progressively short of breath, requiring increasing oxygen, and was thought to be in acute heart failure. He also had atrial fibrillation with rapid ventricular response with a heart rate in the 120s although he had a previous history of paroxysmal atrial fibrillation. He denied any chest pain, nausea, vomiting, fever, abdominal pain. He was unable to lie flat and required sitting straight up in bed in order to be observed breathing. He was admitted to the ICU with appropriate consults on board.] HOSPITAL COURSE:[This gentleman had a very complex admission beginning with intubation for acute respiratory failure. He remained intubated until 2016. His sputum cultures were positive for Haemophilus influenza and Serratia , he was seen by Dr. Ramos, and was placed on appropriate antibiotics. He developed sternal wound dehiscence requiring closure and a muscle flap on 2016, at which time he had a left pleural effusion with placement of chest tube. He initially had atrial fibrillation with rapid ventricular response which was treated accordingly with multiple medications, with rate control achieved. He developed a right pleural effusion with attempted thoracentesis. He had a PICC line placed for longer term IV access as well as IV antibiotics. He did develop a DVT in his right lower extremity extending from the common femoral vein down to the upper calf veins, was anticoagulated with Lovenox, and continued on Coumadin. He made slow progress, was eventually able to eat, participate with physical therapy, and was able to be moved out of the ICU to the stepdown unit. He continued to be weak requiring 2-3 person assist. He was seen and treated by multiple consultants and was eventually able to be discharged to inpatient rehab.] COMPLICATIONS: [Complications included sternal wound dehiscence requiring surgery; left and right pleural effusions with drainage; atrial fibrillation with rapid ventricular response treated accordingly; and right lower extremity DVT with proper anticoagulation.] CONSULTATIONS: 1.[Dr. Ramos for infectious disease] 2.[Dr. Campos for neurology] 3.[Dr. Guadarrama for cardiology] 4.[Dr. Gaffney for pulmonology/tail edger service] 5.[Dr. Dillon for medical management] 6.[Dr. Christina for rehabilitation] DISCHARGE INSTRUCTIONS: 1. No driving for 4 weeks, or until physician gives their ok. 2. The patient should sleep in their own bed, no medical bed needed. 3. Stairs are not an issue. If the bedroom is upstairs, it is advised that the patient go up at night and down in the morning for the first week. Go slowly, using handrail and take 1 step at a time. 4. ORLIN hose are to be worn for 30 days or until physician discontinues. 5. Heart hugger is to be worn 100% of the time until physician discontinues.( except when showering) 6. No lifting, pushing, or pulling more than 10 pounds for 12 weeks. The physician will advise of any restriction changes. 7. The patient is expected to continue the prescribed walking program. 8. Continue pain control per as needed orders. 9. Continue with incentive spirometry and splinting/heart hugger until otherwise directed by the physician. 10. Must shower daily using liquid antibacterial soap and a separate white washcloth for each individual incision. 11. Please remove Silverlon chest dressing on [default value] with routine sternal incision care thereafter. Yeimy Condon, Caleb to follow patient while at [facility]. Coumadin dosing to be done by cardiology. Upon DC from [facility], PT/ INR to be drawn and Coumadin to be adjusted by [facility] fax # [phone]. HOME HEALTH SERVICES TO PROVIDE: RN SKILLED HOME CARE SERVICES FOR POST-OP SURGICAL PATIENTS WITH THE FOLLOWING: Coronary Artery Bypass Surgery (CABG), Mitral Valve Replacement/ Repair ( MVR), Aortic Valve Replacement/Repair (AVR) RN TO CONTINUE EDUCATION FROM ``ROAD TO A HEALTH HEART PATIENT EDUCATION MANUAL (GIVEN TO PATIENT IN THE HOSPITAL) MEDICATION RECONCILIATION WITH EDUCATION NEEDED ON FIRST HOME VISIT EMPHASIZE IMPORTANCE OF WEARING BREAST SUPPORT/HEART HUGGER ENCOURAGE USE OF INCENTIVE SPIROMETER 10 X EVERY HOUR WHILE AWAKE ENCOURAGE UTILIZATION OF LOWER EXTREMITY COMPRESSION STOCKINGS/ORLIN HOSE and ELEVATE LEGS ABOVE LEVEL OF HEART WHILE AT REST. ENCOURAGE AMBULATION 3-5x/day INCREASING TOLERATES, WHILE AVOID EXTREMES IN TEMPERATURE FREQUENCY: RN TO OPEN THE PATIENT WITHIN 24 HOURS OF DISCHARGE FROM THE HOSPITAL WITH TELEHEALTH INSTALLED AT [facility] [place], [place], RN TO VISIT 2-3 X A WEEK FOR 4 WEEKS ESTABLISHED BY PATIENT NEEDS. TELEHEALTH PARAMETERS: WEIGHT: NOTIFY MD OF WEIGHT GAIN OF 2 LBS IN 24 HOURS OR 5 LBS IN ONE WEEK HR: NOTIFY MD OF HR <55 BPM OR HR>100 BPM BP: NOTIFY MD IF BP <90/55 OR BP>140/100 O2 SAT: NOTIFY MD IF PO2<93% ON ROOM AIR SEND TELEHEALTH REPORT TO MAT PACKER AND CARDIOVASCULAR SURGEON THE FIRST WEEK OF CARE AND THEN BI-WEEKLY. PLEASE ADDITIONALLY COMMUNICATE ANY ABNORMALS AND NEW FINDINGS TO THE SURGEONS OFFICE. Plan - Discharge Summary Discharge Medication List Aspirin 81 mg PO DAILY 11/14/14 [History] Levothyroxine Sodium [Synthroid] 150 mcg PO DAILY 11/15/14 [History] HYDROcodone/APAP 5-325MG [[place] 5-325] 1 - 2 tab PO Q6HR PRN #90 tab 10/04/16 [ Rx] Multivitamins, Thera [Multivitamin (formulary)] 1 tab PO DAILY@1200 10/06/16 [ History] Warfarin [Coumadin] 7.5 mg PO DAILY 10/06/16 [History] INSULIN LISPRO (humaLOG) [humaLOG (formulary)] 0 unit SQ ACHS vial 10/29/16 [Rx ] Ipratropium-Albuterol Nebulize [Duoneb 0.5 mg-3 mg/3 ml Soln] 3 ml INHALATION RT -QID ampul.neb 10/29/16 [Rx] Metoprolol Tartrate [Lopressor] 25 mg PO BID tab 10/29/16 [Rx] Pantoprazole [Protonix] 40 mg PO AC-[id number] tablet. 10/29/16 [Rx] Follow up Appointment(s)/Referral(s): Jae Riggs MD [STAFF PHYSICIAN] - 11/15/16 1:00 pm Dayami Guadarrama MD [STAFF PHYSICIAN] - 11/09/16 3:45 pm Augie Armando DO [Doctor of Osteopathic Medicine] - 2 Weeks Jamal Goodwin DO [Primary Care Provider] - 1 Week
[2016-10-29 17:12] LABS: Glucose,Whole Blood 123 mg/dL (75-99)
--- NOTE | 2016-10-29 17:35 | P.PN ---
Subjective Principal diagnosis: Respiratory failure This is a 71-year-old male who came in the hospital on September 23 and underwent a JAYDE and heart catheterization showing a ruptured chordae tendonae, mitral regurgitation, moderate pulmonary hypertension, with history of paroxysmal atrial fibrillation and heart failure. 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 With this the patient was initiated to itraconazole. He however developed atrial fibrillation. Because of this he was initiated to amiodarone. The dose of itraconazole was reduced by 50%. There is no evidence of any ulcerations of the QT interval while he was in hospital. He eventually was discharged home. It is related that he was not able to obtain the itraconazole. In this is going to be addressed in the coming days. However the brought him to the emergency room feeling very short of breath. He was having abdominal distention with increasing shortness of breath. Through his stay in emergency center he continues to feel more more short of breath. He then developed respiratory failure which required intubation sedation mechanical ventilation. Over the following days he is improved was extubated in his continue to improve. His extensive edema has improved. Especially the massive abdominal edema that he was having. Extremity edema is also improved. He is awake and interactive is improving already being in the chair much better than yesterday. Strength is improved. Looks forward for rehab During show some improvement. He's been seen by Dr. Reyes and awaits inpatient rehabilitation Objective - Vital Signs Vital signs: Vital Signs Temp 97.7 F 10/29/16 16:14 Pulse 82 10/29/16 16:30 Resp 18 10/29/16 16:14 BP 102/58 10/29/16 16:14 Pulse Ox 90 L 10/29/16 16:14 Intake & Output 10/28/16 10/29/16 10/29/16 18:59 06:59 18:59 Intake Total 819 640 Output Total 770 555 245 Balance 49 -555 395 Weight 125 kg 92.9 kg Intake: Oral 819 640 Output: Drainage 520 180 245 Left Lateral Chest 0 165 180 Medial Chest 415 15 45 Right Lateral Chest 105 0 20 Urine 250 375 Stool 0 Other: Voiding Method Bedside Commode Bedside Commode Bedside Commode Urinal Urinal Urinal Incontinent Incontinent Incontinent # Voids 1 # Bowel Movements 1 ABP, PAP, CO, CI - Last Documented Arterial Blood Pressure 104/50 - Exam This is a 71-year-old male. comfortable HEENT: Head is atraumatic, normocephalic. Pupils equal, round. Sclerae is anicteric. Conjunctiva slightly pale. Mucous membranes of the mouth are moist. No thrush noted. NECK: Supple. No JVD. No lymphadenopathy. No thyromegaly. LUNGS: There is symmetrical air entry. There are bibasal crackles. No significant bronchial sounds. HEART: Irregular with no no murmur Dressing on sternal wound with no breakthrough bleeding or drainage. Right sided pleural chest tube in place. ABDOMEN: Distinctly distended. Few bowel sounds are noted. Organomegaly is not detected. EXTREMITIES: +1 bilateral pedal edema. No calf tenderness. ORLIN hose in place. NEUROLOGICAL: Awake and interactive hand operations architect is much stronger today. Voice is stronger. Mentation is clear. Skin :patient has an extensive dressing to the chest where there was difficulty with the dehiscence. - Labs CBC & Chem 7: 10/29/16 06:50 10/29/16 06:45 Labs: Abnormal Lab Results - Last 24 Hours (Table) 10/28/16 10/29/16 10/29/16 Range/Units 21:18 06:23 06:45 RBC (4.30-5.90) m/uL Hgb (13.0-17.5) gm/dL Hct (39.0-53.0) % MCHC (31.0-37.0) g/dL RDW (11.5-15.5) % PT (9.0-12.0) sec Sodium 133 L (137-145) mmol/L BUN 38 H (9-20) mg/dL Creatinine 1.34 H (0.66-1.25) mg/dL POC Glucose (mg/dL) 118 H 115 H (75-99) mg/dL Calcium 6.9 L (8.4-10.2) mg/dL 10/29/16 10/29/16 10/29/16 Range/Units 06:50 06:50 11:44 RBC 2.77 L (4.30-5.90) m/uL Hgb 7.8 L (13.0-17.5) gm/dL Hct 25.7 L (39.0-53.0) % MCHC 30.1 L (31.0-37.0) g/dL RDW 17.8 H (11.5-15.5) % PT 23.2 H (9.0-12.0) sec Sodium (137-145) mmol/L BUN (9-20) mg/dL Creatinine (0.66-1.25) mg/dL POC Glucose (mg/dL) 127 H (75-99) mg/dL Calcium (8.4-10.2) mg/dL 10/29/16 Range/Units 16:50 RBC (4.30-5.90) m/uL Hgb (13.0-17.5) gm/dL Hct (39.0-53.0) % MCHC (31.0-37.0) g/dL RDW (11.5-15.5) % PT (9.0-12.0) sec Sodium (137-145) mmol/L BUN (9-20) mg/dL Creatinine (0.66-1.25) mg/dL POC Glucose (mg/dL) 123 H (75-99) mg/dL Calcium (8.4-10.2) mg/dL Laboratory Results WBC 7.0 k/uL (3.8-10.6) 10/29/16 06:50 RBC 2.77 m/uL (4.30-5.90) L 10/29/16 06:50 Hgb 7.8 gm/dL (13.0-17.5) L 10/29/16 06:50 Hct 25.7 % (39.0-53.0) L 10/29/16 06:50 MCV 92.8 fL (80.0-100.0) 10/29/16 06:50 MCH 27.9 pg (25.0-35.0) 10/29/16 06:50 MCHC 30.1 g/dL (31.0-37.0) L 10/29/16 06:50 RDW 17.8 % (11.5-15.5) H 10/29/16 06:50 Plt Count 222 k/uL (150-450) 10/29/16 06:50 Neutrophils % 81 % 10/25/16 05:31 Neutrophils % (Manual) 85.5 % 10/08/16 04:20 Band Neutrophils % 0.5 % 10/08/16 04:20 Lymphocytes % 7 % 10/25/16 05:31 Lymphocytes % (Manual) 5.5 % 10/08/16 04:20 Monocytes % 4 % 10/25/16 05:31 Monocytes % (Manual) 4.0 % 10/08/16 04:20 Eosinophils % 5 % 10/25/16 05:31 Eosinophils % (Manual) 3.0 % 10/08/16 04:20 Basophils % 1 % 10/25/16 05:31 Metamyelocytes % 1.0 % 10/08/16 04:20 Myelocytes % 0.5 % 10/08/16 04:20 Neutrophils # 7.9 k/uL (1.3-7.7) H 10/25/16 05:31 Neutrophils # (Manual) 16.2 k/uL (1.3-7.7) H 10/08/16 04:20 Lymphocytes # 0.7 k/uL (1.0-4.8) L 10/25/16 05:31 Lymphocytes # (Manual) 1.0 k/uL (1.0-4.8) 10/08/16 04:20 Monocytes # 0.4 k/uL (0-1.0) 10/25/16 05:31 Monocytes # (Manual) 0.8 k/uL (0-1.0) 10/08/16 04:20 Eosinophils # 0.5 k/uL (0-0.7) 10/25/16 05:31 Eosinophils # (Manual) 0.6 k/uL (0-0.7) 10/08/16 04:20 Basophils # 0.1 k/uL (0-0.2) 10/25/16 05:31 Nucleated RBCs 0 /100 WBC (0-0) 10/08/16 04:20 Manual Slide Review Performed 10/08/16 04:20 Large Platelets Present 10/06/16 21:00 Polychromasia Present 10/08/16 04:20 Hypochromasia Marked 10/29/16 06:50 Poikilocytosis (manual Present 10/08/16 04:20 Poikilocytosis Moderate 10/29/16 06:50 Anisocytosis Slight 10/29/16 06:50 Macrocytosis Slight 10/25/16 05:31 Ovalocytes Present 10/06/16 21:00 PT 23.2 sec (9.0-12.0) H 10/29/16 06:50 INR 2.4 (<1.1) 10/29/16 06:50 APTT 28.1 sec (22.0-30.0) 10/22/16 05:00 D-Dimer 6.31 mg/L FEU (<0.60) H 10/06/16 21:00 Sample Site shyanne 10/16/16 04:45 ABG pH 7.46 (7.35-7.45) H 10/16/16 04:45 ABG pCO2 41 mmHg (35-45) 10/16/16 04:45 ABG pO2 101 mmHg (83-108) 10/16/16 04:45 ABG HCO3 29 mmol/L (21-25) H 10/16/16 04:45 ABG Total CO2 30 mmol/L (19-24) H 10/16/16 04:45 ABG O2 Saturation 98.0 % (94-97) H 10/16/16 04:45 ABG Base Excess 5.3 mmol/L 10/16/16 04:45 FiO2 50 % 10/16/16 04:45 Sodium 133 mmol/L (137-145) L 10/29/16 06:45 Potassium 3.7 mmol/L (3.5-5.1) 10/29/16 06:45 Chloride 101 mmol/L (98-107) 10/29/16 06:45 Carbon Dioxide 27 mmol/L (22-30) 10/29/16 06:45 Anion Gap 5 mmol/L 10/29/16 06:45 BUN 38 mg/dL (9-20) H 10/29/16 06:45 Creatinine 1.34 mg/dL (0.66-1.25) H 10/29/16 06:45 Est GFR (MDRD) Af Amer >60 (>60 ml/min/1.73 sqM) 10/29/16 06:45 Est GFR (MDRD) Non-Af 52 (>60 ml/min/1.73 sqM) 10/29/16 06:45 Glucose 93 mg/dL (74-99) 10/29/16 06:45 POC Glucose (mg/dL) 123 mg/dL (75-99) H 10/29/16 16:50 POC Glu Curb Supervisor ID Jan Guerra 10/29/16 16:[address] Glu mg/dL 120 mg/dL 10/07/16 05:18 Hemoglobin A1c 5.8 % (4.2-6.1) 10/07/16 05:18 Plasma Lactic Acid Samir 1.0 mmol/L (0.7-2.0) 10/07/16 05:18 Calcium 6.9 mg/dL (8.4-10.2) L 10/29/16 06:45 Ionized Calcium Guille 4.4 mg/dL (4.5-5.3) L 10/15/16 05:00 Phosphorus 4.5 mg/dL (2.5-4.5) 10/25/16 05:31 Magnesium 2.1 mg/dL (1.6-2.3) 10/25/16 05:31 Total Bilirubin 0.9 mg/dL (0.2-1.3) 10/25/16 05:31 AST 33 U/L (17-59) 10/25/16 05:31 ALT 43 U/L (21-72) 10/25/16 05:31 Alkaline Phosphatase 70 U/L (38-126) 10/25/16 05:31 Total Creatine Kinase 736 U/L (55-170) H 10/06/16 09:50 CK-MB (CK-2) 7.2 ng/mL (0.0-2.4) H* 10/06/16 09:50 CK-MB (CK-2) Rel Index 1.0 10/06/16 09:50 Troponin I 1.510 ng/mL (0.000-0.034) H* 10/06/16 09:50 NT-Pro-B Natriuret Pep 6520 pg/mL 10/06/16 09:50 Total Protein 5.2 g/dL (6.3-8.2) L 10/25/16 05:31 Albumin 2.4 g/dL (3.5-5.0) L 10/25/16 05:31 TSH 49.300 mIU/L (0.465-4.680) H 10/21/16 05:15 Free T4 1.05 ng/dL (0.78-2.19) 10/21/16 05:15 Urine Color Dark Yellow 10/06/16 18:30 Urine Appearance Cloudy (Clear) 10/06/16 18:30 Urine pH 5.0 (5.0-8.0) 10/06/16 18:30 Ur Specific [place] 1.018 (1.001-1.035) 10/06/16 18:30 Urine Protein Trace (Negative) H 10/06/16 18:30 Urine Glucose (UA) Negative (Negative) 10/06/16 18:30 Urine Ketones Negative (Negative) 10/06/16 18:30 Urine Blood Negative (Negative) 10/06/16 18:30 Urine Nitrite Negative (Negative) 10/06/16 18:30 Urine Bilirubin 1+ (Negative) H 10/06/16 18:30 Urine Urobilinogen 4.0 mg/dL (<2.0) 10/06/16 18:30 Ur Leukocyte Esterase Negative (Negative) 10/06/16 18:30 Urine WBC 10 /hpf (0-5) H 10/06/16 18:30 Ur Squamous Epith Cells 2 /hpf (0-4) 10/06/16 18:30 Calcium Oxalate Crystal Occasional /hpf (None) H 10/06/16 18:30 Amorphous Sediment Occasional /hpf (None) H 10/06/16 18:30 Hyaline Casts 79 /lpf (0-2) H 10/06/16 18:30 Urine Mucus Rare /hpf (None) H 10/06/16 18:30 Vancomycin Trough 15.0 ug/mL 10/17/16 04:10 Digoxin 0.9 ng/mL 10/17/16 20:36 Blood Type O Positive 10/14/16 13:52 Blood Type Recheck No 10/14/16 13:52 Antibody Screen NEGATIVE 10/14/16 13:52 Crossmatch See Detail 10/14/16 13:52 Transfuse Platelets 10/15/16 10/14/16 13:52 Spec Expiration Date 10/17/2016235110/14/16 13:52 Microbiology 10/15/16 14:40 Chest Anaerobic Culture - Final 10/15/16 14:40 Chest Anaerobic Culture - Final 10/15/16 14:40 Chest Anaerobic Culture - Final 10/15/16 14:40 Chest Gram Stain - Final 10/15/16 14:40 Chest Tissue Culture - Final 10/15/16 14:40 Chest Gram Stain - Final 10/15/16 14:40 Chest Wound Culture - Final 10/15/16 14:40 Chest Gram Stain - Final 10/15/16 14:40 Chest Wound Culture - Final 10/11/16 06:40 Blood Blood Culture - Final No Growth after 144 hours 10/11/16 11:47 Catheter Tip Catheter Tip Culture - Final 10/06/16 10:00 Blood Blood Culture - Final No Growth after 144 hours 10/06/16 21:00 Sputum Gram Stain - Final 10/06/16 21:00 Sputum Sputum Culture - Final Haemophilus influenzae Serratia marcescens Assessment and Plan (1) Acute respiratory failure Narrative/Plan: 71-year-old male with history of thyroid cancer recently was hospitalized at which point in time was having difficulties with congestive heart failure. He was noted evidence of aortic valve insufficiency and mitral valve regurgitation. There is also some lymphadenopathy noted within the chest. As he was taken to the operating room and aortic valve replacement occurred as well as mitral valve repair. Biopsy of mediastinal lymph nodes also occurred. 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 Patient was initiated to itraconazole. He however developed atrial fibrillation and was placed on amiodarone and the itraconazole dose was reduced. Upon discharge he has not been able to continue the itraconazole. However is only been home for a very short period of time we developed the progressive shortness of breath. At admission he has extensive edema in his abdominal cavity as well as evidence of congestive heart failure. Concerns to pneumonia given his significant leukocytosis and antibiotic therapy was begun with piperacillin tazobactam and vancomycin. Sputum culture with Haemophilus and Serratia resistant to Unasyn susceptible to Zosyn. We Will Continue Zosyn, Ongoing aggressive supportive care is continuing Cardiothoracic surgery is following after the reconstruction of the sternum, cultures are negative so far. No evidence of any infection Patient had extensive leukocytosis at admission. This is now improved. Zosyn antibiotic therapy is discontinued. Fortunately the sternum cultures are all negative and no evidence of deep infection of the sternum at this time. He is doing well off of antibiotic therapy has being monitored. Encouraged for his high protein diet to help his healing Is being evaluated for transfer to inpatient rehabilitation to help him with his recovery. Status: Acute (2) Status post aortic valve replacement Status: Acute (3) Status post mitral valve repair Status: Acute (4) Histoplasmosis Status: Acute
[2016-10-29] MEDS ORDERED: WARFARIN 5 MG TAB PO ONE (18:00)
[2016-10-29 20:48] LABS: Glucose,Whole Blood 124 mg/dL (75-99)
[2016-10-30 04:44] VITALS: RESP 18
[2016-10-30 06:06] LABS: Glucose,Whole Blood 215 mg/dL (75-99)
[2016-10-30] MEDS: LEVOTHYROXINE 75 MCG TAB PO SCH (06:41)
[2016-10-30] MEDS: INSULIN LISPRO (humaLOG) 300 UNIT/3 ML VIAL SQ SCH ×2 (06:41→12:03)
[2016-10-30] MEDS: PANTOPRAZOLE 40 MG TABLET PO SCH (06:41)
[2016-10-30 06:50] LABS: Anisocytosis Slight; CH 28.6; CHCM 30.9; HDW 4.33; HGB 7.9 gm/dL (13.0-17.5); Hypochromasia Marked; MCH 28.2 pg (25.0-35.0); MCHC 30.4 g/dL (31.0-37.0); Mean Platelet Volume 7.6; Poikilocytosis Moderate; RDW 17.7 % (11.5-15.5); WBC 7.8 k/uL (3.8-10.6)
[2016-10-30 06:56] LABS: INR 2.7 (<1.1); Prothrombin Time 26.5 sec (9.0-12.0)
[2016-10-30 07:01] LABS: Anion Gap 8 mmol/L; Blood Urea Nitrogen 41 mg/dL (9-20); Carbon Dioxide 25 mmol/L (22-30); Chloride 101 mmol/L (98-107); Glucose 98 mg/dL (74-99); Non-African American GFR(MDRD) 59 (>60 ml/min/1.73 sqM); Potassium 3.7 mmol/L (3.5-5.1); Sodium 134 mmol/L (137-145)
[2016-10-30] MEDS: MULTIVITAMINS, THERA 1 EACH TAB PO SCH (08:17)
[2016-10-30] MEDS: ASPIRIN 81 MG CHEW PO SCH (08:17)
[2016-10-30] MEDS: METOPROLOL TARTRATE 25 MG TAB PO SCH (08:17)
[2016-10-30 08:25] VITALS: BP 109/54; TEMP 97.7
[2016-10-30] MEDS: IPRATROPIUM-ALBUTEROL 3 ML NEB INHALATION SCH ×2 (09:15→11:36)
--- NOTE | 2016-10-30 10:37 | P.PN ---
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 The patient was discharged home on 10/04/2016. Following that the patient was readmitted to the hospital because of increased shortness of breath, acute respiratory failure , cough, syncope and sternal wound dehiscence. The patient was seen by cardiology thoracic surgery and he was taken back to the operating room where he underwent a closure of the sternal wound with a muscle flap on 10/15/2016. The patient was extubated off the mechanical ventilator on 10/16/2016. He initially had difficulties with swallowing yet he is currently doing better. He developed a right-sided pleural effusion he had an attempt for thoracentesis was done yesterday by Dr. Armando and this failed. Apparently there was no adequate fluid drainage during the procedure. As such the procedure was aborted. The patient has a left-sided chest tube in place which is draining approximately less than 100 mL over the past 24 hours and the plan is to take of the chest tube. He is actually taking well at 6 L/m nasal cannula. His is or 82. He is hemodynamically stable. He is pulling approximately 500 on the incentive spirometer. The patient has MEGHAN drains on his sternal wound a total of 3 and the drainage is not active at this point. The patient is hemodynamically stable on no pressors. His CODE STATUS is full at this point. On 10/19/2016 I'm seeing this patient in follow-up. He is doing well. He is sitting up on a bed and he is on 5 L of oxygen by nasal cannula. His chest x- ray still showing better pleural effusion worse on the right and the plan is to proceed with thoracentesis this morning. He is tolerating his diet. No nausea. No vomiting. No chest pain. Sternum stable clean and intact. No fever. No chills. White cell count is at 10.0 and hemoglobin is at 8.4 which is stable. The patient remains on IV Zosyn. I discussed the case with Dr. Ramos and we'll keep the Sporanox on hold for the time being due to concerns of drug interaction. The patient has had Haemophilus and Serratia in his sputum. The MEGHAN drains are still in place. MEGHAN drain #1 has put out 20 mL and # 2 has put out 80 mL of urine output is around 50 mL an hour. On 10/20/2016 I'm seeing this patient in follow-up. The patient has been weaned down to 4 L of oxygen by nasal cannula. He underwent a thoracentesis of the right lung yesterday and total of 1.6 L of pleural fluid was aspirated from the right lung. Patient is doing well. The patient is not having any major respiratory difficulties. The patient was able to breathe better following the procedure. No significant cough or sputum production. The patient has Haemophilus and consideration his sputum and the patient is still on IV Zosyn. MEGHAN drain is still in place. No chills. No fever. He is gradually increasing his oral intake. No other significant events over the past 24 hours. He is having episodes of paroxysmal atrial fibrillation and the patient is on no anti- coagulation at this point. This will be further discussed with cardiology. On 10/21/2016 the patient is being seen in follow-up. He is doing well. No specific complaints. His follow-up chest x-ray from today shows improving bibasilar pulmonary infiltrates with moderate amount of infiltration still on the right along with some residual pleural effusion. He was started on long- term anticoagulation. He is in atrial fibrillation. Is tolerating his diet. He is weak however his getting stronger and is able to sit up on a chair. MEGHAN drains are in place and the output in the 3 tubes are still active and they will be kept in place for the time being. On 10/22/2016, the patient is being seen in follow-up. He is on of getting slightly confused yet he is not agitated and, comfortable. Hemodynamically stable. No significant rest or distress. Chest x-ray findings are essentially stable with atelectatic changes and small effusion the lung bases bilaterally. MEGHAN drains are all in place. Surgery is monitoring the output and managing the MEGHAN drains. Meanwhile, the patient is being migrated and INR is subtherapeutic at 1.8. He remains in atrial fibrillation with a controlled rate. Hemoglobin is stable. Patient is tolerating his diet. No nausea. No vomiting. No abdominal pain. He has trace edema in lower extremities bilaterally. No other significant events over the past 24 hours. On 10/23/2016 the patient is being seen on the medical floor. The patient is on telemetry unit. He is doing well. A bit lethargic and on and off confused. For the most part he is comfortable. On examination, he has diminished breath sounds on the right and I suspect that is the recommendation of the pleural fluid on the right side. Meanwhile, the patient on 2 L of oxygen by nasal cannula. No breathing difficulties. MEGHAN drains are in place. He has edematous extremities. PT/INR is subtherapeutic. Hemoglobin stable at 8.4. On 10/24/2016, the patient is sitting up on a chair. Mentation is appropriate. MEGHAN drains are in place. Surgical wound site is clean and intact and dry. The patient has diminished breath sounds in the lung bases. No fever. No chills. No night sweats. No other significant events overnight. He received 2 mg of warfarin yesterday and INR is subtherapeutic at 1.2. He continues to be atrial fibrillation at the rate is controlled for now and he is hemodynamically stable. Patient was reevaluated today on 10/25/2016, seems to be doing relatively well, sitting up in the chair, seems to be very appropriate, in no form of respiratory distress, surgical wound seems to be clean and intact, patient is denying any shortness of breath no cough no wheezing. He has diminished breath sounds at the bases, CBC was relatively normal except for hemoglobin of 8.6. Electrolytes are normal renal profile is relatively normal INR is 1.2 lashes subtherapeutic, his last chest x-ray was on 10/22/2016. Patient was reevaluated today on 10/26/2016, patient is sitting up in the chair, relatively asymptomatic , continues to have some swelling around his lower extremities. But denies any shortness of breath no cough no wheezing. Denies to have MEGHAN drains, he is becoming more and more active in the room, and I believe we are considering rehab referral at some point. Labs today showed a normal CBC hemoglobin however is 8.5. INR is 1.3, basic metabolic profile is normal BUN is 32 creatinine is 1.13. Chest x-ray was ordered to be done in a.m. On 10/27/2016, patient is remains about the same, patient is relatively asymptomatic, minimal swelling in lower extremities noted, discharge planning is in progress for possible rehab facility. Chest x-ray is reassuring cardiomegaly is noted, and small bilateral pleural effusions are noted not large enough to consider thoracentesis. Right is more so than left. CBC is relatively unremarkable hemoglobin is 8.3 basic metabolic profile is relatively normal creatinine is 1.18. On 10/28/2016, patient is about the same, no changes over the last 24 hours, and overall the patient is feeling stronger, feeling better, labs are basically unremarkable including CBC and basic metabolic profile as well as renal profile last chest x-ray was on 10/27/2016, which I reviewed and noted above. Patient is awaiting possible referral to a rehab facility, we are considering [facility] if patient is felt to be a good candidate for the facility. On 10/29/2016, patient is doing well, no major issues over the last 24 hours, he was evaluated by Dr. Christina, and he is not felt to be a good candidate for inpatient rehab at [facility]. He is felt to be too weak for the rehab at the facility. Patient denies any shortness of breath. Labs were reviewed. Hemoglobin is 7.8. Creatinine is 1.34. On 10/30/2016, patient continues to do well, no major issues over the last 24 hours, and discharge planning is in progress. Labs from today were reviewed relatively normal basic metabolic profile and a relatively normal CBC except for hemoglobin of 7.9. Renal profile is much better today. Objective - Vital Signs Vital signs: Vital Signs Temp 97.7 F 10/30/16 08:19 Pulse 81 10/30/16 08:19 Resp 18 10/30/16 08:19 BP 109/54 10/30/16 08:19 Pulse Ox 92 L 10/30/16 08:19 Intake & Output 10/29/16 10/30/16 10/30/16 18:59 06:59 18:59 Intake Total 880 200 Output Total 245 100 90 Balance 635 100 -90 Weight 92.9 kg 111.2 kg Intake: Oral 880 200 Output: Drainage 245 100 90 Left Lateral Chest 180 100 90 Medial Chest 45 0 0 Right Lateral Chest 20 0 0 Stool 0 0 Other: Voiding Method Bedside Commode Bedside Commode Bedside Commode Urinal Urinal Urinal Incontinent Incontinent Incontinent ABP, PAP, CO, CI - Last Documented Arterial Blood Pressure 104/50 - Exam Head exam was generally normal. There was no scleral icterus or corneal arcus. Mucous membranes were moist.Neck was supple and without jugular venous distension, thyromegaly, or carotid bruits. Carotids were easily palpable bilaterally. There was no adenopathy. Lung sounds are diminished in the lung base bilaterally especially in the right lung base. Heart sounds are regular, positive S1-S2 and there is no significant murmurs appreciated. Sternum was stable clean and intact and the patient's sternal wound is covered with a Aquacel silver dressing. No active drainage from the wounds.Abdominal exam revealed normal bowel sounds. The abdomen was soft, non-tender, and without masses, organomegaly, or appreciable enlargement of the abdominal aorta.Examination of the extremities revealed easily palpable radial, femoral and pedal pulses. There was no cyanosis, 1+ bipedal edema is noted. - Labs CBC & Chem 7: 10/30/16 05:45 10/30/16 05:45 Labs: Abnormal Lab Results - Last 24 Hours (Table) 10/29/16 10/29/16 10/29/16 Range/Units 11:44 16:50 20:45 RBC (4.30-5.90) m/uL Hgb (13.0-17.5) gm/dL Hct (39.0-53.0) % MCHC (31.0-37.0) g/dL RDW (11.5-15.5) % PT (9.0-12.0) sec Sodium (137-145) mmol/L BUN (9-20) mg/dL POC Glucose (mg/dL) 127 H 123 H 124 H (75-99) mg/dL Calcium (8.4-10.2) mg/dL 10/30/16 10/30/16 10/30/16 Range/Units 05:45 05:45 05:45 RBC 2.80 L (4.30-5.90) m/uL Hgb 7.9 L (13.0-17.5) gm/dL Hct 26.0 L (39.0-53.0) % MCHC 30.4 L (31.0-37.0) g/dL RDW 17.7 H (11.5-15.5) % PT 26.5 H (9.0-12.0) sec Sodium 134 L (137-145) mmol/L BUN 41 H (9-20) mg/dL POC Glucose (mg/dL) (75-99) mg/dL Calcium 7.0 L (8.4-10.2) mg/dL 10/30/16 Range/Units 06:04 RBC (4.30-5.90) m/uL Hgb (13.0-17.5) gm/dL Hct (39.0-53.0) % MCHC (31.0-37.0) g/dL RDW (11.5-15.5) % PT (9.0-12.0) sec Sodium (137-145) mmol/L BUN (9-20) mg/dL POC Glucose (mg/dL) 215 H (75-99) mg/dL Calcium (8.4-10.2) mg/dL Assessment and Plan Plan: 1 status post aortic valve replacement and mitral valve repair and the patient is postop day # 31 2 sternal wound dehiscence, post muscle flap, postop day # 15 3 post extubation and the patient was weaned off the mechanical ventilator on 4 bilateral pleural effusion, status post thoracentesis of the right lung and evacuation of 1.6 L of pleural fluid. Chest x-ray was ordered to be done in a.m. 5 left-sided chest tube with diminished output, and the chest tube was removed you days ago. 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 The patient was seen by Dr. Ramos. Recommendations were treating this patient with itraconazole 100 mg by mouth twice a day. 12 Serratia marcescens and Haemophilus influenza in the sputum, currently on IV Zosyn . This was felt to be a ventilator associated pneumonia, treated. And resolved. 13 hypernatremia, improved 14 generalized weakness 15 episodes of change in mental status, possibly secondary to delirium. Plan Continue with warfarin regarding his chronic atrial fibrillation. The dose will be adjusted by cardiology. INR is 2.7 today, Otherwise. Is quite stable at this point. No change in mental status. CT surgery is following up this patient regarding the surgical wound drains. Consider discharge planning eventually to a rehab facility. Continue present supportive care measures, will continue to follow.
--- NOTE | 2016-10-30 10:44 | P.PN ---
Progress Note - Text CV Surgery Nursing Principal diagnosis: Acute hypoxic respiratory failure requiring mechanical ventilation, present on admission. Sputum culture positive for Haemophilus influenza, serratia marcescens. Was on Zosyn, vanco. Infectious disease following. CAT scan of the chest on 10/09/16 demonstrated dehiscence of sternal wires, an unexpected postsurgical condition related to the patient's underlying comorbidities. POD #33 aortic valve replacement, mitral valve repair, modified Frederick maze, mediastinal lymph node biopsy. POD #15 sternal exploration due to sternal debridement and wound closure with bilateral pectoralis major myocutaneous advancement flaps POD #15 placement of left chest tube for left pleural effusion POD #11 right thoracentesis for right pleural effusion with drainage of 1.5 L of dark red tinged fluid. Bilateral lower extremity ultrasound done, revealed a right lower extremity DVT extending from the common femoral vein down to the upper calf veins, no DVT in the left lower extremity. Patient started on Lovenox 10/26/2016. Patient awake and alert, no distress noted, he is complaining of pain 9 out of 10 to his chest. He is sitting up to bedside chair. His is at his bedside , questions answered. Vital Signs: Afebrile Vital Signs - 24 hr 10/29/16 10/29/16 10/29/16 11:27 11:37 16:14 Temperature 97.7 F 97.7 F Pulse Rate 82 82 Pulse Rate [ 78 79 Pulse Oximetery ] Respiratory 18 16 Rate Blood Pressure 98/52 102/58 [Right Arm] O2 Sat by Pulse 98 90 L Oximetry 10/29/16 10/29/16 10/29/16 16:16 16:30 20:00 Temperature 97.8 F Pulse Rate 82 82 Pulse Rate [ 80 Pulse Oximetery ] Respiratory 18 Rate Blood Pressure 116/55 [Right Arm] O2 Sat by Pulse 97 Oximetry 10/29/16 10/29/16 10/30/16 20:14 20:33 00:00 Temperature 96.8 F L Pulse Rate 80 84 Pulse Rate [ 78 Pulse Oximetery ] Respiratory 16 Rate Blood Pressure 98/56 [Right Arm] O2 Sat by Pulse 93 L Oximetry 10/30/16 10/30/16 04:00 08:19 Temperature 97 F L 97.7 F Pulse Rate Pulse Rate [ 81 81 Pulse Oximetery ] Respiratory 18 16 Rate Blood Pressure 100/50 109/54 [Right Arm] O2 Sat by Pulse 90 L 92 L Oximetry Labs: Short CBC 10/30/16 Range/Units 05:45 WBC 7.8 (3.8-10.6) k/uL Hgb 7.9 L (13.0-17.5) gm/dL Hct 26.0 L (39.0-53.0) % Plt Count 213 (150-450) k/uL BMP 10/30/16 05:45 Sodium 134 L Potassium 3.7 Chloride 101 Carbon Dioxide 25 BUN 41 H Creatinine 1.21 Glucose 98 Calcium 7.0 L Lungs: Coarse rhonchi scattered throughout, diminished bilateral bases right greater than left. Nonproductive loose cough. Respirations are symmetrical and unlabored. O2 sat: 92% on room air. I/S: 750 mL, reviewed with the patient important of using his incentive spirometry every hour while awake. Patient did give a good return demonstration on his incentive spirometry. Also discussed with the patient important of using his incentive spirometry upon discharge to his rehab. Heart: S1S2, regular rhythm and rate, negative for S3, gallop or murmur. Remote telemetry showing normal sinus rhythm heart rate 78. Chest incision clean with Silver dressing clean and dry. His silver dressing was removed this a.m. His yoli are intact, incision is clean dry and well approximated no erythema noted. MEGHAN drains in place draining serosanguineous drainage. Right chest MEGHAN drain with 0 mL output in the last 8 hours, 20 mL output in the last 24 hours. The mid chest MEGHAN drain draining serosanguineous drainage. 0 mL output in the last 8 hours, 35 mL output in the last 24 hours. Left chest MEGHAN drain draining thin serosanguineous drainage. 120 mL output in the last 8 hours, 360 mL output in the last [address] hours[address] in place, reminded patient on use of her heart hugger. Abdomen: Soft, Positive bowel sounds present in all 4 quadrants, CBGs: 123-215 mg/dL in the last 24 hours. U/O: Adequate. 24 hr Total: Intake & Output 10/28/16 10/29/16 10/30/16 10/31/16 06:59 06:59 06:59 06:59 Intake Total 942 359 6095 Output Total 1020 1325 345 90 Balance -760 -506 735 -90 Weight 112 kg 125 kg 111.2 kg Active Medications Albuterol/Ipratropium (Duoneb 0.5 Mg-3 Mg/3 Ml Soln) 3 ml INHALATION RT-QID [facility] Last Admin: 10/30/16 09:15 Dose: Not Given Aspirin (Aspirin) 81 mg PO DAILY [facility] Last Admin: 10/30/16 08:17 Dose: 81 mg Ibuprofen (Motrin Oral Susp) 600 mg PO Q6H PRN PRN Reason: Fever and/or Mild Pain Last Admin: 10/29/16 20:42 Dose: 600 mg Insulin Human Lispro (Humalog) 0 unit SQ ACHS [facility] PRN Reason: Protocol Last Admin: 10/30/16 06:41 Dose: 3 unit Levothyroxine Sodium (Synthroid) 150 mcg PO DAILY@0630 [facility] Last Admin: 10/30/16 06:41 Dose: 150 mcg Metoprolol Tartrate (Lopressor) 25 mg PO BID [facility] Last Admin: 10/30/16 08:17 Dose: 25 mg Miscellaneous Information (Magnesium Per Protocol) 1 each MISCELLANE DAILY PRN ; Protocol PRN Reason: Per Protocol Miscellaneous Information (Phosphorus Per Protocol) 1 each MISCELLANE DAILY PRN ; Protocol PRN Reason: Per Protocol Miscellaneous Information (Potassium Per Protocol) 1 each MISCELLANE DAILY PRN ; Protocol PRN Reason: Per Protocol Multivitamins (Theragran) 1 each PO DAILY@1200 [facility] Last Admin: 10/30/16 08:17 Dose: 1 each Pantoprazole Sodium (Protonix) 40 mg PO AC-[id number] [facility] Last Admin: 10/30/16 06:41 Dose: 40 mg Sodium Chloride (Saline Flush) 20 ml IV Q4HR PRN PRN Reason: PICC Line Last Admin: 10/25/16 09:36 Dose: 20 ml Sodium Chloride (Saline Flush) 10 ml IV WEEKLY [facility] Last Admin: 10/25/16 09:44 Dose: Not Given Warfarin Sodium (Coumadin) 3 mg PO ONCE@1800 ONE Stop: 10/30/16 18:01 Plan: 1. Continue aspirin, and Lopressor. 2. MEGHAN drains will remain in place and we will continue to monitor the output. Every other staple will be removed to his sternal incision today. 3. INR this morning 2.7 this a.m., we will give Coumadin 3 mg by mouth today 4. Diabetic management per internal medicine service. 5. Strict I/O, daily weights. 6. Encourage incentive spirometry use. Dr. Gaffney following for pulmonary management. 7. Increase activity. PT/OT to work with patient while hospitalized. 8. Plan for discharge to [facility] rehab today at noon. Dr. Christina to follow.
[2016-10-30] MEDS: IBUPROFEN ORAL SUSP 2,400 MG/120 ML BOTTLE PO PRN (11:29)
[2016-10-30 11:48] VITALS: PULSE 83
[2016-10-30 11:53] LABS: Glucose,Whole Blood 135 mg/dL (75-99)
--- NOTE | 2016-10-30 12:16 | P.PN ---
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 From the cardiovascular standpoint overview, he seems to be stable and seems to be asymptomatic where he denies having any chest pain or discomfort. The blood pressure has been marginally low but the patient as a mentioned asymptomatic. He continues to be in atrial fibrillation was controlled heart rate. He continues to be on anticoagulation using Coumadin. The hemoglobin has been around 8 but it has been stable around this number. Objective - Vital Signs Vital signs: Vital Signs Temp 97.7 F 10/30/16 08:19 Pulse 83 10/30/16 11:47 Resp 18 10/30/16 08:19 BP 109/54 10/30/16 08:19 Pulse Ox 92 L 10/30/16 08:19 Intake & Output 10/29/16 10/30/16 10/30/16 18:59 06:59 18:59 Intake Total 880 200 362 Output Total 245 100 940 Balance 635 100 -578 Weight 92.9 kg 111.2 kg Intake: Oral 880 200 362 Output: Drainage 245 100 90 Left Lateral Chest 180 100 90 Medial Chest 45 0 0 Right Lateral Chest 20 0 0 Urine 850 Stool 0 0 Other: Voiding Method Bedside Commode Bedside Commode Bedside Commode Urinal Urinal Urinal Incontinent Incontinent Incontinent # Voids 2 ABP, PAP, CO, CI - Last Documented Arterial Blood Pressure 104/50 - Constitutional General appearance: Present: no acute distress - Respiratory Respiratory: bilateral: CTA - Cardiovascular Heart sounds: normal: S1, S2 - Labs CBC & Chem 7: 10/30/16 05:45 10/30/16 05:45 Labs: Abnormal Lab Results - Last 24 Hours (Table) 10/29/16 10/29/16 10/30/16 Range/Units 16:50 20:45 05:45 RBC 2.80 L (4.30-5.90) m/uL Hgb 7.9 L (13.0-17.5) gm/dL Hct 26.0 L (39.0-53.0) % MCHC 30.4 L (31.0-37.0) g/dL RDW 17.7 H (11.5-15.5) % PT (9.0-12.0) sec Sodium (137-145) mmol/L BUN (9-20) mg/dL POC Glucose (mg/dL) 123 H 124 H (75-99) mg/dL Calcium (8.4-10.2) mg/dL 10/30/16 10/30/16 10/30/16 Range/Units 05:45 05:45 06:04 RBC (4.30-5.90) m/uL Hgb (13.0-17.5) gm/dL Hct (39.0-53.0) % MCHC (31.0-37.0) g/dL RDW (11.5-15.5) % PT 26.5 H (9.0-12.0) sec Sodium 134 L (137-145) mmol/L BUN 41 H (9-20) mg/dL POC Glucose (mg/dL) 215 H (75-99) mg/dL Calcium 7.0 L (8.4-10.2) mg/dL 10/30/16 Range/Units 11:50 RBC (4.30-5.90) m/uL Hgb (13.0-17.5) gm/dL Hct (39.0-53.0) % MCHC (31.0-37.0) g/dL RDW (11.5-15.5) % PT (9.0-12.0) sec Sodium (137-145) mmol/L BUN (9-20) mg/dL POC Glucose (mg/dL) 135 H (75-99) mg/dL Calcium (8.4-10.2) mg/dL Assessment and Plan Plan: Assessment Status post aortic valve replacement and mitral valve repair Prolonged post operation course Acute respiratory failure Chronic atrial fibrillation Multiple comorbid conditions Plan Continue the patient on the current medical treatment Continue anticoagulation with Coumadin Follow-up with the patient
[2016-10-30] MEDS ORDERED: WARFARIN 3 MG TAB PO ONE (18:00)
== END 2016-10-30 13:08 | DRG 166 ==
LOC: EC 09:22 → 6SEL 11:17 → 6ICU 17:21 → 6SEL 10-22 17:50
PROVIDERS: ADMIT Thoracic Surgery (Cardiothoracic Vascular Surgery); ATTEND Thoracic Surgery (Cardiothoracic Vascular Surgery)
PROC: 5A1955Z Respiratory Ventilation, Greater than 96 Consecutive Hours (ICD-10-PCS; 2016-10-06)
PROC: 0DH67UZ Insertion of Feeding Device into Stomach, Via Natural or Artificial Opening (ICD-10-PCS; 2016-10-06)
PROC: 0BH17EZ Insertion of Endotracheal Airway into Trachea, Via Natural or Artificial Opening (ICD-10-PCS; 2016-10-06)
PROC: 0T9B70Z Drainage of Bladder with Drainage Device, Via Natural or Artificial Opening (ICD-10-PCS; 2016-10-06)
PROC: 06HM33Z Insertion of Infusion Device into Right Femoral Vein, Percutaneous Approach (ICD-10-PCS; 2016-10-07)
PROC: 3E0G76Z Introduction of Nutritional Substance into Upper GI, Via Natural or Artificial Opening (ICD-10-PCS; 2016-10-08)
PROC: 02HV33Z Insertion of Infusion Device into Superior Vena Cava, Percutaneous Approach (ICD-10-PCS; 2016-10-11)
PROC: 0PB00ZZ Excision of Sternum, Open Approach (ICD-10-PCS; 2016-10-15)
PROC: 0PC00ZZ Extirpation of Matter from Sternum, Open Approach (ICD-10-PCS; 2016-10-15)
PROC: 0PQ00ZZ Repair Sternum, Open Approach (ICD-10-PCS; 2016-10-15)
PROC: 0KXJ0ZZ Transfer Left Thorax Muscle, Open Approach (ICD-10-PCS; 2016-10-15)
PROC: 0KXH0ZZ Transfer Right Thorax Muscle, Open Approach (ICD-10-PCS; 2016-10-15)
PROC: 0W9B30Z Drainage of Left Pleural Cavity with Drainage Device, Percutaneous Approach (ICD-10-PCS; principal; 2016-10-15 12:15)
PROC: 0W993ZZ Drainage of Right Pleural Cavity, Percutaneous Approach (ICD-10-PCS; 2016-10-17)
PROC: 0W993ZZ Drainage of Right Pleural Cavity, Percutaneous Approach (ICD-10-PCS; 2016-10-19)
DX: J14 Pneumonia due to Hemophilus influenzae (principal); N17.0 Acute kidney failure with tubular necrosis; J96.01 Acute respiratory failure with hypoxia; I50.33 Acute on chronic diastolic (congestive) heart failure; A41.9 Sepsis, unspecified organism; J90 Pleural effusion, not elsewhere classified; Z99.11 Dependence on respirator [ventilator] status; I95.9 Hypotension, unspecified; E87.4 Mixed disorder of acid-base balance; E87.0 Hyperosmolality and hypernatremia; I48.1 Persistent atrial fibrillation; E87.1 Hypo-osmolality and hyponatremia; I82.411 Acute embolism and thrombosis of right femoral vein; I82.4Z1 Acute embolism and thrombosis of unspecified deep veins of right distal lower extremity; T81.32XA Disruption of internal operation (surgical) wound, not elsewhere classified, initial encounter; S22.41XA Multiple fractures of ribs, right side, initial encounter for closed fracture; E78.00 Pure hypercholesterolemia, unspecified; B39.1 Chronic pulmonary histoplasmosis capsulati; J15.6 Pneumonia due to other Gram-negative bacteria; I27.2 Other secondary pulmonary hypertension; I48.0 Paroxysmal atrial fibrillation; D72.828 Other elevated white blood cell count; R53.1 Weakness; I67.9 Cerebrovascular disease, unspecified; D64.9 Anemia, unspecified; I11.0 Hypertensive heart disease with heart failure; E87.6 Hypokalemia; E83.51 Hypocalcemia; I08.0 Rheumatic disorders of both mitral and aortic valves; I48.2 Chronic atrial fibrillation; R13.10 Dysphagia, unspecified; R19.7 Diarrhea, unspecified; R74.8 Abnormal levels of other serum enzymes; R41.0 Disorientation, unspecified; R32 Unspecified urinary incontinence; R59.0 Localized enlarged lymph nodes; R14.0 Abdominal distension (gaseous); T45.515A Adverse effect of anticoagulants, initial encounter; E88.09 Other disorders of plasma-protein metabolism, not elsewhere classified; I83.90 Asymptomatic varicose veins of unspecified lower extremity; E78.5 Hyperlipidemia, unspecified; M19.91 Primary osteoarthritis, unspecified site; K21.9 Gastro-esophageal reflux disease without esophagitis; E66.9 Obesity, unspecified; E89.0 Postprocedural hypothyroidism; Z82.49 Family history of ischemic heart disease and other diseases of the circulatory system; Z80.0 Family history of malignant neoplasm of digestive organs; Z79.82 Long term (current) use of aspirin; Z79.01 Long term (current) use of anticoagulants; Z96.652 Presence of left artificial knee joint; Z92.3 Personal history of irradiation; Z85.850 Personal history of malignant neoplasm of thyroid; Z79.899 Other long term (current) drug therapy; Z71.3 Dietary counseling and surveillance; Z68.38 Body mass index [BMI] 38.0-38.9, adult; Z95.3 Presence of xenogenic heart valve; Z87.891 Personal history of nicotine dependence; Z86.010 Personal history of colon polyps; Z86.19 Personal history of other infectious and parasitic diseases; Z86.79 Personal history of other diseases of the circulatory system; Z98.890 Other specified postprocedural states; Z87.09 Personal history of other diseases of the respiratory system; Z16.11 Resistance to penicillins
CPT/HCPCS: 36415; 36569; 36600; 70450; 71010; 71020; 71250; 74000; 76604; 76937; 80048; 80053; 80162; 80202; 81001; 82330; 82550; 82553; 82805; 83036; 83605; 83735; 83880; 84100; 84132; 84439; 84443; 84484; 85025; 85027; 85379; 85610; 85730; 86850; 86900; 86901; 86920; 87040; 87070; 87075; 87077; 87186; 87205; 88304; 88311; 93005; 93306; 93308; 93970; 94002; 94003; 94640; 94760; 95816; 96365; 96366; 96375; 96376; 99291

== ENCOUNTER 2016-11-09 09:43 | Inpatient (IN) | payer MEDICARE, OTHER ==
[2016-11-13] MEDS ORDERED: HEPARIN SODIUM,PORCINE 5,000 UNIT/ML 1 ML VIAL IV PRN (21:40)
[2016-11-13 22:02] LABS: Anisocytosis Slight; Basophils % (A) 0 %; CH 25.8; CHCM 29.9; Eosinophils # (A) 0.1 k/uL (0-0.7); Eosinophils % (A) 1 %; HCT 26.8 % (39.0-53.0); HDW 4.29; HGB 7.7 gm/dL (13.0-17.5); Hypochromasia Marked; Luc # (Auto) 0.22; Luc % (Auto) 2; Lymphocytes # (A) 0.8 k/uL (1.0-4.8); Lymphocytes % (A) 6 %; MCH 24.5 pg (25.0-35.0); MCHC 28.6 g/dL (31.0-37.0); Mean Platelet Volume 7.8; Monocytes # (A) 0.7 k/uL (0-1.0); Monocytes % (A) 5 %; Neutrophils # (A) 12.3 k/uL (1.3-7.7); Neutrophils % (A) 87 %; Poikilocytosis Moderate; RBC 3.13 m/uL (4.30-5.90); WBC 14.2 k/uL (3.8-10.6); WBC (Perox) 14.21
[2016-11-13] MEDS ORDERED: ACETAMINOPHEN TAB 325 MG TAB PO PRN (22:07)
[2016-11-13] MEDS ORDERED: HYDROcodone/APAP 5-325MG 1 EACH TAB PO PRN (22:11)
[2016-11-13 22:13] LABS: INR 1.3 (<1.1); Partial Thromboplastin Time 38.5 sec (22.0-30.0); Prothrombin Time 12.5 sec (9.0-12.0)
[2016-11-13] MEDS ORDERED: SENNOSIDES 8.6 MG TAB PO PRN (22:14)
[2016-11-13] MEDS ORDERED: NALOXONE 0.4 MG/ML 1 ML VIAL IV PRN (22:15)
[2016-11-13] MEDS: HEPARIN SODIUM,PORCINE/D5W PMX 25,000 UNIT in DEXTROSE/WATER 1 500ML.BAG IV SCH (22:52)
[2016-11-13] MEDS: AMIODARONE 200 MG TAB PO SCH (22:53)
[2016-11-13] MEDS: SODIUM CHLORIDE 0.9% 1,000 ML IV SCH (22:53)
[2016-11-13 23:03] LABS: MCV 85.6 fL (80.0-100.0)
[2016-11-14] MEDS: FUROSEMIDE 10 MG/ML 4 ML VIAL IV SCH ×3 (00:15→16:49)
[2016-11-14] MEDS: METOPROLOL TARTRATE 12.5 MG TAB PO SCH ×3 (00:15→20:10)
[2016-11-14] MEDS: PIPERACILLIN-TAZOBACTAM 3.375 GM in DEXTROSE/WATER 1 50ML.BAG IVPB SCH ×3 (00:15→16:49)
[2016-11-14 03:43] LABS: Anisocytosis Slight; Basophils % (A) 0 %; CH 25.9; CHCM 29.9; Eosinophils # (A) 0.1 k/uL (0-0.7); Eosinophils % (A) 1 %; HCT 25.3 % (39.0-53.0); HDW 4.26; HGB 7.6 gm/dL (13.0-17.5); Hypochromasia Marked; Luc # (Auto) 0.15; Luc % (Auto) 1; Lymphocytes % (A) 8 %; MCH 25.8 pg (25.0-35.0); MCHC 29.9 g/dL (31.0-37.0); MCV 86.2 fL (80.0-100.0); Mean Platelet Volume 7.1; Monocytes # (A) 0.6 k/uL (0-1.0); Monocytes % (A) 5 %; Neutrophils % (A) 85 %; Poikilocytosis Moderate; RBC 2.93 m/uL (4.30-5.90); RDW 18.4 % (11.5-15.5); WBC 12.9 k/uL (3.8-10.6); WBC (Perox) 12.77
[2016-11-14 03:55] LABS: INR 1.3 (<1.1); Partial Thromboplastin Time 93.9 sec (22.0-30.0)
[2016-11-14 05:18] LABS: Anion Gap 10 mmol/L; Blood Urea Nitrogen 58 mg/dL (9-20); Carbon Dioxide 37 mmol/L (22-30); Chloride 86 mmol/L (98-107); Glucose 159 mg/dL (74-99); Non-African American GFR(MDRD) 58 (>60 ml/min/1.73 sqM); Phosphorous 4.7 mg/dL (2.5-4.5); Sodium 133 mmol/L (137-145)
[2016-11-14 06:08] LABS: Calcium 6.1 mg/dL (8.4-10.2); Potassium 2.9 mmol/L (3.5-5.1)
[2016-11-14] MEDS ORDERED: Potassium Replacement Protocol 1 EACH MISC MISCELLANE PRN (06:17)
[2016-11-14] MEDS: POTASSIUM CHLORIDE ER 20 MEQ TAB.ER PO SCH ×5 (06:45→14:50)
[2016-11-14] MEDS: LEVOTHYROXINE 75 MCG TAB PO SCH (06:45)
[2016-11-14 07:25] LABS: Glucose,Whole Blood 144 mg/dL (75-99)
[2016-11-14] MEDS: INSULIN LISPRO (humaLOG) 300 UNIT/3 ML VIAL SQ SCH ×4 (08:45→20:09)
[2016-11-14] MEDS ORDERED: METOPROLOL TARTRATE 12.5 MG TAB PO SCH (09:00)
--- NOTE | 2016-11-14 09:17 | XR ---
EXAMINATION TYPE: XR chest 1V DATE OF EXAM: 11/14/2016 8:10 AM COMPARISON: NONE INDICATION: Short of breath TECHNIQUE: Single frontal view of the chest is obtained. FINDINGS: The heart size is normal. The pulmonary vasculature is normal. Appears be a loculated pleural fluid collection along the right lateral chest border. This is a estrada e. Catheters are present. EKG leads overlie the chest. IMPRESSION: 1. Developing loculated pleural fluid collection along lateral right chest wall margin.
[2016-11-14] MEDS: ASPIRIN 81 MG CHEW PO SCH (09:44)
[2016-11-14] MEDS: AMIODARONE 200 MG TAB PO SCH (09:44)
[2016-11-14] MEDS: METOLAZONE 2.5 MG TAB PO SCH (09:45)
[2016-11-14] MEDS: PANTOPRAZOLE 40 MG TABLET PO SCH (09:45)
[2016-11-14] MEDS: MULTIVITAMINS, THERA 1 EACH TAB PO SCH (09:45)
[2016-11-14 12:09] LABS: Hemoglobin A1C 5.2 % (4.2-6.1)
[2016-11-14 12:23] LABS: Glucose,Whole Blood 157 mg/dL (75-99)
[2016-11-14 13:35] LABS: Appearance,Urine Clear (Clear); Bilirubin,Urine Negative (Negative); Glucose,Urine (UA) Negative (Negative); Ketones,Urine Negative (Negative); Leukocyte Esterase,Urine Negative (Negative); Nitrite,Urine Negative (Negative); PH, Urine 5.5 (5.0-8.0); Protein,Urine Negative (Negative); UA Billing (MACRO vs. MICRO) CHEM
[2016-11-14] MEDS: HEPARIN SODIUM,PORCINE/D5W PMX 25,000 UNIT in DEXTROSE/WATER 1 500ML.BAG IV SCH (13:46)
[2016-11-14 17:45] LABS: Glucose,Whole Blood 114 mg/dL (75-99)
[2016-11-14] MEDS: POTASSIUM CHLORIDE ORAL LIQUID 40 MEQ/30 ML CUP NG-TUBE SCH ×3 (18:09→20:09)
--- NOTE | 2016-11-14 18:19 | HP ---
DATE OF ADMISSION: 11/13/2016 PRESENTING COMPLAINT: Short of breath. HISTORY OF PRESENTING COMPLAINT: This is a 71-year-old patient with rather extensive medical history who initially was at [facility], had a sternal surgery done with a pectoralis flap. Otherwise it had gotten loose. Patient has underlying atrial fibrillation for which he is on Coumadin. The patient has a possible diagnosis of histoplasmosis. Patient also on that admission had right thoracentesis and bloody fluid 1.6 liters was removed. The patient also has hypertension, hypothyroid, obesity, osteoarthritis, hypothyroidism, secondary hypertension and also was treated for pneumonia. Subsequently the patient was transferred on 10/30/2016 to [facility] where the patient was on the rehab per Dr. Christina. The patient was getting more and more short of breath, swelling of legs went up. Cardiology and pulmonary was consulted. As patient continued to deteriorate, he was transferred out of the ICU, and admitted to my service. The patient was in atrial fibrillation, uncontrolled. Did receive IV Cardizem and was put back on IV heparin. About 1.6 liters of fluid was removed from the right side by tap per Dr. Gaffney. The patient was put on IV Lasix with swelling started to come down. There was concern about infection and loculated fluids in the lungs and hence the patient was put on antibiotics. Because of unavailability of a bed, patient was going to be transferred the last 3 days and finally got transferred yesterday evening. Patient did tolerate his diet. Able to get up. Breathing slightly better. Patient back in sinus rhythm. REVIEW OF SYSTEMS: CONSTITUTIONAL: Tired. HEENT: None. RESPIRATORY: Baseline short of breath. CARDIOVASCULAR: As above. Edema. ABDOMEN: Bowel sounds present. GENITOURINARY: Duong catheter was discontinued. Dermatological: None. HEMATOLOGICAL: None. LYMPHATICS: None. PSYCHIATRY: None. NEUROLOGICAL: None. Past medical history: Pneumonia, GERD, secondary pulmonary hypertension, hypothyroid, osteoarthritis, obesity, hypertension, ( ) the patient had right sided thoracentesis, histoplasmosis, atrial fibrillation, still ( ) dehiscence. PAST SURGICAL HISTORY: Cardiac catheterization, joint replacement, thyroidectomy, left total knee replacement, aortic valve replacement with bovine valve, mitral valve repair, mediastinal lymph node biopsy. SOCIAL HISTORY: The patient is . Patient smoked 3 packs a day from 1959 to 1979 and smoked cigars on and off from 1991 to 1999. Drinks alcohol occasionally. Used to work at [employer]. FAMILY HISTORY: Liver cancer. HOME MEDICATIONS: Medications upon transfer: 1. Aspirin 81 mg a day. 2. Lasix 40 mg. 3. [place] 5, 1 to 2 tablets q.6 p.r.n. 4. DuoNeb q.i.d. 5. Synthroid 150 mcg a day. 6. Mevacor 40 mg q.h.s. 7. Lopressor 25 mg p.o. b.i.d. 8. Multivitamin 1 tablet p.o. daily. 9. Protonix 40 mg a day. 10. Potassium 10 meq a day. ALLERGIES: None. On examination, temperature 98.1, pulse 120, respiration 18, blood pressure 84/59, pulse ox 94% on 8 liters. GENERAL APPEARANCE: Average build, sitting up. Tired -appearing. Short of breath at rest. EYES: Pupils equal. Conjunctivae normal. HEENT: Oral cavity normal. NECK: JVD unable to assess. Mass not palpable. RESPIRATORY: Effort increased. LUNGS: Bilateral basal crackles. CARDIOVASCULAR: Heart sounds irregular. Edema present. ABDOMEN: Has got pleural drains in place. PSYCHIATRY: Alert and oriented times three, mood and affect anxious appearing. NEUROLOGICAL: Pupils equal. Cranial nerves grossly intact. INVESTIGATIONS: White count 14.2, hemoglobin 7.7, platelets ( ), INR 1.3, potassium 2.9. Repeat 3 today. BUN 58, creatinine 1.22. Albumin 2.2. Chest x-ray shows possible loculated pleural fluid collection on the right lateral chest border. ASSESSMENT: 1. Acute on chronic congestive heart failure exacerbation from diastolic dysfunction, ejection fraction 55 to 60%. 2. Recent aortic valve replacement and moderate mitral valve repair. 3. Sternal wound dehiscence with pectoralis flap in place. 4. Coronary artery disease with prior coronary artery bypass. 5. Acute hypoxic respiratory failure, continue on nasal cannula. 6. Persistent atrial fibrillation rate variable on IV heparin. 7. Chronic histoplasmosis, status post biopsy. 8. Status post pleural effusion that was tapped. 9. Hypercholesterolemia. 10. Hypothyroidism. 11. Obesity. 12. Primary osteoarthritis of multiple joints, bilateral. 13. Moderate secondary pulmonary hypertension. 14. Gastroesophageal reflux disease. 15. CODE STATUS: FULL. PLAN: Consultation to pulmonary, cardiothoracic, cardiology all have been done. Home medication are resumed including antibiotics, diuretics. Also consult Dr. Ramos from infectious disease and also Dr. Riggs from cardiothoracic. Overall prognosis is guarded. Care was discussed with the patient. Follow.
[2016-11-14] MEDS: IPRATROPIUM-ALBUTEROL 3 ML NEB INHALATION PRN (19:59)
[2016-11-14 20:09] LABS: Glucose,Whole Blood 236 mg/dL (75-99)
[2016-11-15] MEDS: PIPERACILLIN-TAZOBACTAM 3.375 GM in DEXTROSE/WATER 1 50ML.BAG IVPB SCH ×4 (01:25→23:17)
[2016-11-15] MEDS: SODIUM CHLORIDE 0.9% 1,000 ML IV SCH ×2 (01:26→22:56)
[2016-11-15] MEDS: FUROSEMIDE 10 MG/ML 4 ML VIAL IV SCH ×3 (01:26→17:28)
[2016-11-15 05:54] LABS: Anisocytosis Slight; CH 25.6; CHCM 29.3; HCT 27.2 % (39.0-53.0); HGB 7.7 gm/dL (13.0-17.5); Hypochromasia Marked; MCH 24.6 pg (25.0-35.0); MCHC 28.3 g/dL (31.0-37.0); Mean Platelet Volume 6.7; Poikilocytosis Moderate; RBC 3.13 m/uL (4.30-5.90); WBC (Perox) 15.58
[2016-11-15 06:11] LABS: Add Differential Manual Differential
[2016-11-15 06:13] LABS: Nucleated Red Blood Cells 1 /100 WBC (0-0); Total Cells Counted 100; WBC 14.8 k/uL (3.8-10.6)
[2016-11-15 06:14] LABS: Manual Review Performed; Polychromasia Present
[2016-11-15 06:15] LABS: Spherocytes Present
[2016-11-15 06:16] LABS: Anion Gap 12 mmol/L; Blood Urea Nitrogen 59 mg/dL (9-20); Carbon Dioxide 34 mmol/L (22-30); Chloride 88 mmol/L (98-107); Glucose 96 mg/dL (74-99); Non-African American GFR(MDRD) 54 (>60 ml/min/1.73 sqM); Phosphorous 3.6 mg/dL (2.5-4.5); Potassium 4.1 mmol/L (3.5-5.1); Sodium 134 mmol/L (137-145)
[2016-11-15] MEDS: LEVOTHYROXINE 75 MCG TAB PO SCH (06:41)
[2016-11-15 06:54] LABS: Calcium 5.9 mg/dL (8.4-10.2)
--- NOTE | 2016-11-15 07:21 | XR ---
EXAMINATION TYPE: XR chest 1V DATE OF EXAM: 11/15/2016 7:04 AM HISTORY: SOB. REFERENCE: Previous study dated 11/14/2016. FINDINGS: Multiple leads and tubes project over the chest. The heart is enlarged. There are bilateral effusions. There is bibasilar airspace disease. The overal l appearance is similar to the previous study. IMPRESSION: NO SIGNIFICANT INTERVAL CHANGE IN APPEARANCE OF THE CHEST.
[2016-11-15 07:30] LABS: Glucose,Whole Blood 121 mg/dL (75-99)
[2016-11-15] MEDS: IPRATROPIUM-ALBUTEROL 3 ML NEB INHALATION PRN (07:57)
[2016-11-15] MEDS: INSULIN LISPRO (humaLOG) 300 UNIT/3 ML VIAL SQ SCH ×4 (08:11→21:32)
[2016-11-15] MEDS: PANTOPRAZOLE 40 MG TABLET PO SCH (08:12)
[2016-11-15] MEDS: AMIODARONE 200 MG TAB PO SCH (09:22)
[2016-11-15] MEDS: ASPIRIN 81 MG CHEW PO SCH (09:22)
[2016-11-15] MEDS: METOPROLOL TARTRATE 12.5 MG TAB PO SCH (09:23)
[2016-11-15] MEDS: METOLAZONE 2.5 MG TAB PO SCH (09:23)
--- NOTE | 2016-11-15 09:56 | ECHOF ---
Referral Reason:s/p AVR/MV REPAIR, CHF MEASUREMENTS -------- HEIGHT: 175.3 cm WEIGHT: 107.1 kg BP: 88/56 IVSd: 1.1 cm (0.6 - 1.1) LVIDd: 3.4 cm (3.9 - 5.3) LVPWd: 1.1 cm (0.6 - 1.1) IVSs: 1.2 cm LVIDs: 2.7 cm LVPWs: 1.1 cm AV maxP.56 mmHg AV meanP.47 mmHg RAP: 5.00 mmHg RVSP: 11.24 mmHg FINDINGS -------- Atrial fibrillation. This was a technically difficult study with suboptimal views. TDS due to CABG and Bandages. Left ventricular wall thickness is normal. Overall left ventricular systolic function is mild-moderately impaired with, an EF between 40 - 45 %. Inferiorlateral Hypokinesis The RV was not well visualized. The left atrium is normal in size. The right atrium is normal in size. Peak/mean gradient across the Aortic Valve is 16.56mmHg / 9.47mmHg. Normally functioning bioprosthetic valve. The mitral valve leaflets are mildly thickened. There is trace mitral regurgitation. MV Repair. Mild tricuspid regurgitation present. The right ventricular systolic pressure, as measured by Doppler, is 11.24mmHg. The pulmonic valve was not well visualized. There is no pericardial effusion. CONCLUSIONS -------- 1. Atrial fibrillation. 2. Normally functioning bioprosthetic valve. 3. The mitral valve leaflets are mildly thickened. 4. There is trace mitral regurgitation. 5. MV Repair. 6. Mild tricuspid regurgitation present. 7. The right ventricular systolic pressure, as measured by Doppler, is 11.24mmHg. 8. The pulmonic valve was not well visualized. 9. There is no pericardial effusion. 10. This was a technically difficult study with suboptimal views. 11. TDS due to CABG and Bandages. 12. Left ventricular wall thickness is normal. 13. Overall left ventricular systolic function is mild-moderately impaired with, an EF between 40 - 45 %. 14. Inferiorlateral Hypokinesis 15. The RV was not well visualized. 16. The left atrium is normal in size. 17. Peak/mean gradient across the Aortic Valve is 16.56mmHg / 9.47mmHg. BACKSIDE GRINDER: Charisse Posadas RDCS
--- NOTE | 2016-11-15 10:24 | P.CONS ---
History of Present Illness - Reason for Consult Consult date: 11/15/16 Infection - History of Present Illness This is a 71-year-old male well known to ID service who came in the hospital on September 23 and underwent a FABIOLA and heart catheterization showing a ruptured chordae tendonae, mitral regurgitation, moderate pulmonary hypertension , with history of paroxysmal atrial fibrillation and heart failure. 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 With this the patient was initiated to itraconazole. He however developed atrial fibrillation. Because of this he was initiated to amiodarone. The dose of itraconazole was reduced by 50%. There is no evidence of alteration of the QT interval while he was in hospital. He eventually was discharged home. It is related that he was not able to obtain the itraconazole. In this is going to be addressed in the coming days. However he returned to [facility] emergency center due to shortness of breath and was hospitalized October 06 through October 30 at which time he required intubation and mechanical ventilation. He was successfully extubated. He was treated for dehiscence of sternal wires requiring sternal exploration, debridement and wound closure with bilateral pectoralis major myocutaneous advanced flaps. He also required chest tube placement for left pleural effusion and right thoracentesis for right pleural effusion with drainage of 1.5 L of dark red tinged fluid. Muscle flap procedure was done on October 15. Patient was stabilized and then transferred to [facility] for inpatient rehab under the care of Dr. Christina. He developed increasing shortness of breath and edema and was eventually transferred to the intensive care unit where he was found to be in atrial fibrillation with rapid ventricular response and acute systolic heart failure and underwent thoracentesis with removal of 1.6 L on the right chest. Patient was treated in the intensive care unit until a bed was available at [facility] he was a direct transfer. Chest x-ray here shows developing pleural fluid collection along lateral right chest wall. Consults are in place with Dr. Gaffney, cardiovascular surgeon and cardiology. Patient has [address] with one showing some purulence for which a culture to be sent today. Patient has had some mild confusion since admission. He did receive extra dose of Lasix this morning. He has been afebrile. Patient is on heparin drip and amiodarone is oral. For antibiotics, patient is on Zosyn. Echocardiogram reveals EF 40-45%, normally functioning bioprosthetic valve, trace mitral regurgitation, mild tricuspid regurgitation. Sputum culture during his hospitalization of October 06 was positive for Haemophilus influenza and Serratia marcescens susceptible to Zosyn. Review of Systems All systems: negative Constitutional: Denies chills, Denies fever Eyes: denies blurred vision, denies pain Ears, nose, mouth and throat: Denies headache, Denies sore throat Cardiovascular: Reports irregular heart beat, Reports leg edema, Reports shortness of breath, Denies chest pain Respiratory: Denies cough Gastrointestinal: Denies abdominal pain, Denies diarrhea, Denies nausea, Denies vomiting Musculoskeletal: Denies myalgias Integumentary: Denies pruritus, Denies rash Neurological: Denies numbness, Denies weakness Psychiatric: Denies anxiety, Denies depression Endocrine: Denies fatigue, Denies weight change Past Medical History Past Medical History: Atrial Fibrillation, Cancer, Heart Failure, Hyperlipidemia , Osteoarthritis (OA), Thyroid Disorder Additional Past Medical History / Comment(s): Current mediastinal lymphadenopathy with histoplasmosis being tx with ABX by Dr. Ramos, THYROID CANCER with surgery/radiation, varicose veins, rheumatic fever, paroxysmal atrial fibrillation, aortic valve insufficiency and mitral valve regurgitation- recent valvular surgery, moderate pulmonary hypertension History of Any Multi-Drug Resistant Organisms: None Reported Past Surgical History: Cardiac Valve Replacement, Heart Catheterization, Joint Replacement Additional Past Surgical History / Comment(s): thyroidectomy, total left knee replacement, 08/2016cardiac cath/fabiola, 09/29/16 aortic valve replacement with bovine valve, mitral valve repair, mediastinal lymph node biopsy, colonoscopies/ polypectomy-benign. Past Anesthesia/Blood Transfusion Reactions: No Reported Reaction Past Psychological History: No Psychological Hx Reported Additional Psychological History / Comment(s): Pt resides with his spouse. He has [facility] home care. He uses no assistive device. He has not driven since cardiac valve surgery, his spouse does the driving.SMOKED 3 PPD. Started smoking in 1959 and QUIT SMOKING 1979. Pt smoked cigars on and off from 1991 until 1999. He denies any medical marijuana, marijuana, street drug use. He states he has not had any alcohol intake for the past 3 months. He usually drinks 0-2 alcoholic beverages per day. He has traveled in the past in [place] , [place], [place], [facility], [place] and [place]. He has worked in the past at [employer]. Smoking Status: Former smoker Past Alcohol Use History: Rare Additional Past Alcohol Use History / Comment(s): SMOKED 3 PPD. Started smoking in 1959 and QUIT SMOKING 1979. Pt smoked cigars on and off from 1991 until 1999. He denies any medical marijuana, marijuana, street drug use. He states he has not had any alcohol intake for the past 3 months. He usually drinks 0-2 alcoholic beverages per day. He has traveled in the past in [place], [place] , [place], [facility], [place] and [place]. He has worked in the past at [employer]. Past Drug Use History: None Reported - Past Family History Father Family Medical History: Coronary Artery Disease (CAD) Additional Family Medical History / Comment(s): Father at 76yrs from heart problems. Mother Family Medical History: No Reported History Additional Family Medical History / Comment(s): Mother at the age of 92 yrs. She had varicose veins Brother(s) Family Medical History: Cancer Additional Family Medical History / Comment(s): LIVER CA. BLOOD CLOT. Medications and Allergies Home Medications Medication Instructions Recorded Confirmed Type Aspirin 81 mg PO DAILY 11/14/14 11/14/16 History Levothyroxine Sodium [Synthroid] 150 mcg PO DAILY 11/15/14 11/14/16 History Multivitamins, Thera [Multivitamin 1 tab PO DAILY@1200 10/06/16 11/14/16 History (formulary)] Warfarin [Coumadin] 5 mg PO DAILY 10/06/16 11/14/16 History Furosemide [Lasix] 40 mg PO DAILY PRN 11/14/16 11/14/16 History INSULIN LISPRO (humaLOG) [humaLOG See Protocol SQ ACHS 11/14/16 11/14/16 History (formulary)] Lovastatin [Mevacor] 40 mg PO HS 11/14/16 11/14/16 History Potassium Chloride ER [K-Dur 10] 10 meq PO DAILY PRN 11/14/16 11/14/16 History Allergies Allergy/AdvReac Type Severity Reaction Status Date / Time No Known Allergies Allergy Verified 11/14/16 08:47 Physical Exam Vitals: Vital Signs Temp Pulse Pulse Resp BP BP Pulse Ox 05/22/17 08:15 112 H 11/15/16 08:00 98.0 F 122 H 22 93/60 93 L 11/15/16 07:59 112 H 11/15/16 04:00 98.1 F 98 20 88/56 93 L 11/15/16 00:00 98.6 F 94 22 92/60 94 L 11/14/16 20:03 116 H 11/14/16 20:00 97.6 F 109 H 22 106/58 96 11/14/16 19:51 110 H 11/14/16 15:41 97.9 F 100 19 129/89 96 11/14/16 15:00 97 20 142/113 92 L 11/14/16 14:00 114 H 20 114/55 94 L 11/14/16 13:00 116 H 18 153/95 94 L 11/14/16 12:00 98.7 F 114 H 19 111/92 95 11/14/16 11:00 112 H 18 122/55 94 L Intake and Output 11/14/16 11/15/16 11/15/16 22:59 06:59 14:59 Intake Total 20 220 20 Output Total 450 300 200 Balance -430 -80 -180 Intake: IV 20 20 20 Sodium Chloride 0.9% 1, 20 20 20 000 ml @ 20 mls/hr IV . Q24H [facility] Rx#:[id number] Oral 200 Output: Drainage 200 Left Lateral MEGHAN Drain 0 Medial MEGHAN Drain 200 Right Lateral MEGHAN Drain 0 Urine 250 300 200 Other: Voiding Method Urinal Urinal Urinal # Bowel Movements 1 Weight 105.9 kg This is a 71-year-old male. He appears comfortable lying in ICU bed. He does arouse to verbal stimuli and is able to follow simple commands and answer questions. Cardiac monitors atrial fibrillation with rapid ventricular response. HEENT: Head is atraumatic, normocephalic. Pupils equal, round. Sclerae is anicteric. Conjunctiva slightly pale. Mucous membranes of the mouth are dry. No thrush noted. NECK: Supple. No JVD. No lymphadenopathy. No thyromegaly. LUNGS: There are bibasal crackles. No significant bronchial sounds. MEGHAN drain to the right chest shows serous drainage small amount. MEGHAN drain to the midsternal area show serosanguineous with some yellow exudate. Left lateral MEGHAN drain with serous drainage. HEART: Irregular with no murmur Dressing on sternal wound and place. ABDOMEN: Distinctly distended. Bowel sounds are normal. Organomegaly is not detected. Abdomen is nontender. EXTREMITIES: +3 bilateral pedal edema. SCDs in place. NEUROLOGICAL: Awake and alert. Able to follow simple commands and answer questions. Results Results: Laboratory Results WBC 14.8 k/uL (3.8-10.6) H 11/15/16 04:18 RBC 3.13 m/uL (4.30-5.90) L 11/15/16 04:18 Hgb 7.7 gm/dL (13.0-17.5) L 11/15/16 04:18 Hct 27.2 % (39.0-53.0) L 11/15/16 04:18 MCV 87.0 fL (80.0-100.0) 11/15/16 04:18 MCH 24.6 pg (25.0-35.0) L 11/15/16 04:18 MCHC 28.3 g/dL (31.0-37.0) L 11/15/16 04:18 RDW 18.0 % (11.5-15.5) H 11/15/16 04:18 Plt Count 506 k/uL (150-450) H 11/15/16 04:18 Neutrophils % 85 % 11/14/16 03:30 Neutrophils % (Manual) 86.0 % 11/15/16 04:18 Band Neutrophils % 1.0 % 11/15/16 04:18 Lymphocytes % 8 % 11/14/16 03:30 Lymphocytes % (Manual) 6.0 % 11/15/16 04:18 Monocytes % 5 % 11/14/16 03:30 Monocytes % (Manual) 7.0 % 11/15/16 04:18 Eosinophils % 1 % 11/14/16 03:30 Basophils % 0 % 11/14/16 03:30 Neutrophils # 11.0 k/uL (1.3-7.7) H 11/14/16 03:30 Neutrophils # (Manual) 12.9 k/uL (1.3-7.7) H 11/15/16 04:18 Lymphocytes # 1.0 k/uL (1.0-4.8) 11/14/16 03:30 Lymphocytes # (Manual) 0.9 k/uL (1.0-4.8) L 11/15/16 04:18 Monocytes # 0.6 k/uL (0-1.0) 11/14/16 03:30 Monocytes # (Manual) 1.0 k/uL (0-1.0) 11/15/16 04:18 Eosinophils # 0.1 k/uL (0-0.7) 11/14/16 03:30 Basophils # 0.0 k/uL (0-0.2) 11/14/16 03:30 Nucleated RBCs 1 /100 WBC (0-0) H 11/15/16 04:18 Manual Slide Review Performed 11/15/16 04:18 Polychromasia Present 11/15/16 04:18 Hypochromasia Marked 11/15/16 04:18 Hypochromasia (manual) Pres 11/15/16 04:18 Poikilocytosis Moderate 11/15/16 04:18 Anisocytosis Slight 11/15/16 04:18 Anisocytosis (manual) Present 11/15/16 04:18 Spherocytes Present 11/15/16 04:18 PT 13.0 sec (9.0-12.0) H 11/14/16 03:30 INR 1.3 (<1.1) 11/14/16 03:30 APTT 49.3 sec (22.0-30.0) H 11/15/16 04:18 Sodium 134 mmol/L (137-145) L 11/15/16 04:18 Potassium 4.1 mmol/L (3.5-5.1) 11/15/16 04:18 Chloride 88 mmol/L (98-107) L 11/15/16 04:18 Carbon Dioxide 34 mmol/L (22-30) H 11/15/16 04:18 Anion Gap 12 mmol/L 11/15/16 04:18 BUN 59 mg/dL (9-20) H 11/15/16 04:18 Creatinine 1.30 mg/dL (0.66-1.25) H 11/15/16 04:18 Est GFR (MDRD) Af Amer >60 (>60 ml/min/1.73 sqM) 11/15/16 04:18 Est GFR (MDRD) Non-Af 54 (>60 ml/min/1.73 sqM) 11/15/16 04:18 Glucose 96 mg/dL (74-99) 11/15/16 04:18 POC Glucose (mg/dL) 121 mg/dL (75-99) H 11/15/16 07:29 POC Glu Cobbler Sole ID Joann Chow 11/15/16 07:[address] Glu mg/dL 103 mg/dL 11/13/16 21:54 Hemoglobin A1c 5.2 % (4.2-6.1) 11/13/16 21:54 Calcium 5.9 mg/dL (8.4-10.2) L* 11/15/16 04:18 Phosphorus 3.6 mg/dL (2.5-4.5) 11/15/16 04:18 Magnesium 2.0 mg/dL (1.6-2.3) 11/15/16 04:18 Albumin 2.2 g/dL (3.5-5.0) L 11/14/16 03:30 Free T4 1.58 ng/dL (0.78-2.19) 11/15/16 04:18 Urine Color Yellow 11/14/16 13:14 Urine Appearance Clear (Clear) 11/14/16 13:14 Urine pH 5.5 (5.0-8.0) 11/14/16 13:14 Ur Specific [place] 1.010 (1.001-1.035) 11/14/16 13:14 Urine Protein Negative (Negative) 11/14/16 13:14 Urine Glucose (UA) Negative (Negative) 11/14/16 13:14 Urine Ketones Negative (Negative) 11/14/16 13:14 Urine Blood Negative (Negative) 11/14/16 13:14 Urine Nitrite Negative (Negative) 11/14/16 13:14 Urine Bilirubin Negative (Negative) 11/14/16 13:14 Urine Urobilinogen 2.0 mg/dL (<2.0) 11/14/16 13:14 Ur Leukocyte Esterase Negative (Negative) 11/14/16 13:14 CBC & Chem 7: 11/15/16 04:18 11/15/16 04:18 Labs: Abnormal Lab Results - Last 24 Hours (Table) 11/14/16 11/14/16 11/14/16 Range/Units 12:22 12:26 12:26 WBC (3.8-10.6) k/uL RBC (4.30-5.90) m/uL Hgb (13.0-17.5) gm/dL Hct (39.0-53.0) % MCH (25.0-35.0) pg MCHC (31.0-37.0) g/dL RDW (11.5-15.5) % Plt Count (150-450) k/uL Neutrophils # (Manual) (1.3-7.7) k/uL Lymphocytes # (Manual) (1.0-4.8) k/uL Nucleated RBCs (0-0) /100 WBC APTT 36.1 H (22.0-30.0) sec Sodium (137-145) mmol/L Potassium 3.0 L* (3.5-5.1) mmol/L Chloride (98-107) mmol/L Carbon Dioxide (22-30) mmol/L BUN (9-20) mg/dL Creatinine (0.66-1.25) mg/dL POC Glucose (mg/dL) 157 H (75-99) mg/dL Calcium (8.4-10.2) mg/dL 11/14/16 11/14/16 11/14/16 Range/Units 15:58 17:43 19:40 WBC (3.8-10.6) k/uL RBC (4.30-5.90) m/uL Hgb (13.0-17.5) gm/dL Hct (39.0-53.0) % MCH (25.0-35.0) pg MCHC (31.0-37.0) g/dL RDW (11.5-15.5) % Plt Count (150-450) k/uL Neutrophils # (Manual) (1.3-7.7) k/uL Lymphocytes # (Manual) (1.0-4.8) k/uL Nucleated RBCs (0-0) /100 WBC APTT 54.0 H (22.0-30.0) sec Sodium (137-145) mmol/L Potassium 2.8 L* (3.5-5.1) mmol/L Chloride (98-107) mmol/L Carbon Dioxide (22-30) mmol/L BUN (9-20) mg/dL Creatinine (0.66-1.25) mg/dL POC Glucose (mg/dL) 114 H (75-99) mg/dL Calcium (8.4-10.2) mg/dL 11/14/16 11/15/16 11/15/16 Range/Units 20:08 04:18 04:18 WBC 14.8 H (3.8-10.6) k/uL RBC 3.13 L (4.30-5.90) m/uL Hgb 7.7 L (13.0-17.5) gm/dL Hct 27.2 L (39.0-53.0) % MCH 24.6 L (25.0-35.0) pg MCHC 28.3 L (31.0-37.0) g/dL RDW 18.0 H (11.5-15.5) % Plt Count 506 H (150-450) k/uL Neutrophils # (Manual) 12.9 H (1.3-7.7) k/uL Lymphocytes # (Manual) 0.9 L (1.0-4.8) k/uL Nucleated RBCs 1 H (0-0) /100 WBC APTT (22.0-30.0) sec Sodium 134 L (137-145) mmol/L Potassium (3.5-5.1) mmol/L Chloride 88 L (98-107) mmol/L Carbon Dioxide 34 H (22-30) mmol/L BUN 59 H (9-20) mg/dL Creatinine 1.30 H (0.66-1.25) mg/dL POC Glucose (mg/dL) 236 H (75-99) mg/dL Calcium 5.9 L* (8.4-10.2) mg/dL 11/15/16 11/15/16 Range/Units 04:18 07:29 WBC (3.8-10.6) k/uL RBC (4.30-5.90) m/uL Hgb (13.0-17.5) gm/dL Hct (39.0-53.0) % MCH (25.0-35.0) pg MCHC (31.0-37.0) g/dL RDW (11.5-15.5) % Plt Count (150-450) k/uL Neutrophils # (Manual) (1.3-7.7) k/uL Lymphocytes # (Manual) (1.0-4.8) k/uL Nucleated RBCs (0-0) /100 WBC APTT 49.3 H (22.0-30.0) sec Sodium (137-145) mmol/L Potassium (3.5-5.1) mmol/L Chloride (98-107) mmol/L Carbon Dioxide (22-30) mmol/L BUN (9-20) mg/dL Creatinine (0.66-1.25) mg/dL POC Glucose (mg/dL) 121 H (75-99) mg/dL Calcium (8.4-10.2) mg/dL Assessment and Plan Plan: This is a 71-year-old male who is well-known to ID service as he was initially seen on his first admission following aortic valve replacement and mitral valve repair and mediastinal lymph node biopsy came back positive for histoplasmosis. Patient was initially started on nitric on his old but subsequently developed atrial fibrillation and was started on amiodarone. The dose of I triaconazole was decreased by 50%. There was no QT wave interval changes while he was hospitalized initially. He was then discharged home and was not not able to obtain the eye triaconazole. Patient has had repeat admission for wound dehiscence and had flap procedure done. Patient was stabilized and eventually transferred to [facility] for inpatient rehab where he developed acute onset of chronic systolic heart failure as well as pleural effusion status post thoracentesis. He is now transferred to [facility]. He is currently on Zosyn which will be continued. There is noted some purulent drainage from the mediastinal MEGHAN drain which will be cultured. Continue supportive care. Further recommendations as patient progresses. The above dictated assessment and findings were discussed with Dr. Ramos. The impression and plan of care have been directed as dictated. Kayla Crawford nurse practitioner acting as scribe for Dr. Ramos.
[2016-11-15] MEDS ORDERED: POTASSIUM CHLORIDE ER 10 MEQ TAB.ER.PRT PO PRN (10:57)
[2016-11-15] MEDS ORDERED: FUROSEMIDE 40 MG TAB PO PRN (10:57)
[2016-11-15 11:15] LABS: Glucose,Whole Blood 166 mg/dL (75-99)
[2016-11-15] MEDS: HEPARIN SODIUM,PORCINE/D5W PMX 25,000 UNIT in DEXTROSE/WATER 1 500ML.BAG IV SCH ×2 (11:16→20:25)
--- NOTE | 2016-11-15 11:18 | P.CNPUL ---
History of Present Illness Consult date: 11/15/16 Requesting physician: Alcon Dillon Reason for consult: pleural effusion Chief complaint: Shortness of breath History of present illness: This is a 71-year-old white male with history of multiple medical problems including ruptured chordae tendonae, severe mitral regurgitation, pulmonary hypertension, paroxysmal atrial fibrillation, aortic valve disease, on September 27 2016, patient underwent aortic valve replacement with bovine valve and mitral valve repair as well as mediastinal lymph node biopsy which came back positive for histoplasmosis. Patient was eventually discharged home after a relatively prolonged hospital course, patient was readmitted on October 06 through October 30 with increased shortness of breath, and he was found to have congestive heart failure, sterility 1 dehiscence requiring sternal exploration and debridement and wound closure with bilateral pectoralis muscle flaps. During that admission , patient also required left sided chest tube placement, right sided thoracentesis, patient was eventually extubated, and transferred to rehab at [facility] under the care of Dr. Reyes. However after few days, patient developed congestive heart failure, worsening pleural effusion requiring thoracentesis again, loculated pleural effusion on the right side was noted based on ultrasound and CT of the chest, there was some purulence noted in his MEGHAN drains which are mediastinal drains, hence arrangements were made to transfer the patient back to [facility]. Patient was initially admitted to the intensive care unit, placed on broad-spectrum antibiotics, he is on heparin drip, and his last hospitalization while at [facility], his sputum was positive for Haemophilus influenza and Serratia marcescens. At any rate patient is to be seen by many consultants during this transfer, and I was asked to see him on consultation today. Patient was placed back on his usual medications, diuretics, I reviewed her chest x-ray, and I felt that the patient has bilateral pleural effusions, small at this point, will not require thoracentesis at least not for now. Review of Systems Constitutional: Patient is complaining of weakness, fatigue, no fever no chills. Patient had some significant weight loss. Eyes: denies blurred vision, no diplopia. Ears, nose, mouth and throat: , Denies sore throat Cardiovascular: Reports irregular heart beat, Reports leg edema, Reports shortness of breath, Denies chest pain Respiratory: Patient is mostly complaining of shortness of breath Gastrointestinal: Denies abdominal pain, Denies diarrhea, Denies nausea, Denies vomiting Musculoskeletal: Denies myalgias Integumentary: Denies pruritus, Denies rash Neurological: Denies numbness, Denies weakness Psychiatric: Denies anxiety, Denies depression Endocrine: No symptoms to suggest hypothyroidism, hyperthyroidism, or diabetes at this point. Past Medical History Past Medical History: Atrial Fibrillation, Cancer, Heart Failure, Hyperlipidemia , Osteoarthritis (OA), Thyroid Disorder Additional Past Medical History / Comment(s): Current mediastinal lymphadenopathy with histoplasmosis being tx with ABX by Dr. Ramos, THYROID CANCER with surgery/radiation, varicose veins, rheumatic fever, paroxysmal atrial fibrillation, aortic valve insufficiency and mitral valve regurgitation- recent valvular surgery, moderate pulmonary hypertension History of Any Multi-Drug Resistant Organisms: None Reported Past Surgical History: Cardiac Valve Replacement, Heart Catheterization, Joint Replacement Additional Past Surgical History / Comment(s): thyroidectomy, total left knee replacement, 08/2016cardiac cath/fabiola, 09/29/16 aortic valve replacement with bovine valve, mitral valve repair, mediastinal lymph node biopsy, colonoscopies/ polypectomy-benign. Past Anesthesia/Blood Transfusion Reactions: No Reported Reaction Past Psychological History: No Psychological Hx Reported Additional Psychological History / Comment(s): Pt resides with his spouse. He has [facility] home care. He uses no assistive device. He has not driven since cardiac valve surgery, his spouse does the driving.SMOKED 3 PPD. Started smoking in 1959 and QUIT SMOKING 1979. Pt smoked cigars on and off from 1991 until 1999. He denies any medical marijuana, marijuana, street drug use. He states he has not had any alcohol intake for the past 3 months. He usually drinks 0-2 alcoholic beverages per day. He has traveled in the past in [place], [place], [facility], [place] and [place]. He has worked in the past at [employer]. Smoking Status: Former smoker Past Alcohol Use History: Rare Additional Past Alcohol Use History / Comment(s): SMOKED 3 PPD. Started smoking in 1959 and QUIT SMOKING 1979. Pt smoked cigars on and off from 1991 until 1999. He denies any medical marijuana, marijuana, street drug use. He states he has not had any alcohol intake for the past 3 months. He usually drinks 0-2 alcoholic beverages per day. He has traveled in the past in [place], [place] , [place], [facility], [place] and [place]. He has worked in the past at [employer]. Past Drug Use History: None Reported - Past Family History Father Family Medical History: Coronary Artery Disease (CAD) Additional Family Medical History / Comment(s): Father at 76yrs from heart problems. Mother Family Medical History: No Reported History Additional Family Medical History / Comment(s): Mother at the age of 92 yrs. She had varicose veins Brother(s) Family Medical History: Cancer Additional Family Medical History / Comment(s): LIVER CA. BLOOD CLOT. Medications and Allergies Home Medications Medication Instructions Recorded Confirmed Type Aspirin 81 mg PO DAILY 11/14/14 11/14/16 History Levothyroxine Sodium [Synthroid] 150 mcg PO DAILY 11/15/14 11/14/16 History Multivitamins, Thera [Multivitamin 1 tab PO DAILY@1200 10/06/16 11/14/16 History (formulary)] Warfarin [Coumadin] 5 mg PO DAILY 10/06/16 11/14/16 History Furosemide [Lasix] 40 mg PO DAILY PRN 11/14/16 11/14/16 History INSULIN LISPRO (humaLOG) [humaLOG See Protocol SQ ACHS 11/14/16 11/14/16 History (formulary)] Lovastatin [Mevacor] 40 mg PO HS 11/14/16 11/14/16 History Potassium Chloride ER [K-Dur 10] 10 meq PO DAILY PRN 11/14/16 11/14/16 History Allergies Allergy/AdvReac Type Severity Reaction Status Date / Time No Known Allergies Allergy Verified 11/14/16 08:47 Physical Exam Vitals: Vital Signs Temp Pulse Pulse Resp BP BP Pulse Ox 11/15/16 08:15 112 H 11/15/16 08:00 98.0 F 122 H 22 93/60 93 L 11/15/16 07:59 112 H 11/15/16 04:00 98.1 F 98 20 88/56 93 L 11/15/16 00:00 98.6 F 94 22 92/60 94 L 11/14/16 20:03 116 H 11/14/16 20:00 97.6 F 109 H 22 106/58 96 11/14/16 19:51 110 H 11/14/16 15:41 97.9 F 100 19 129/89 96 11/14/16 15:00 97 20 142/113 92 L 11/14/16 14:00 114 H 20 114/55 94 L 11/14/16 13:00 116 H 18 153/95 94 L 11/14/16 12:00 98.7 F 114 H 19 111/92 95 Intake and Output 11/14/16 11/15/16 11/15/16 22:59 06:59 14:59 Intake Total 20 220 20 Output Total 450 300 200 Balance -430 -80 -180 Intake: IV 20 20 20 Sodium Chloride 0.9% 1, 20 20 20 000 ml @ 20 mls/hr IV . Q24H STEVAN Rx#:[id number] Oral 200 Output: Drainage 200 Left Lateral MEGHAN Drain 0 Medial MEGHAN Drain 200 Right Lateral MEGHAN Drain 0 Urine 250 300 200 Other: Voiding Method Urinal Urinal Urinal # Bowel Movements 1 Weight 105.9 kg Physical Exam: Revealed a 71-year-old white male, cachectic, pale looking, in mild form of respiratory distress. HEENT:[Neck ithroughout, nos supple.] [No neck masses.] [No thyromegaly.] [No JVD.] Chest: [Diminished breath sounds and crackles at the bases were noted. No rhonchi no wheezes.] Cardiac Exam: [Irregular irregular rhythm, dressing on sternal wound is noted, MEGHAN drains 2 were noted. Abdomen: [Soft, nontender, no megaly, no rebound, no guarding, normal bowel sounds.] Extremities: [No clubbing, 3+ bipedal edema, no cyanosis.] Neurological Exam: [No focal neurologic deficit.] Results - Laboratory Findings CBC and BMP: 11/15/16 04:18 11/15/16 04:18 PT/INR, D-dimer PT 13.0 sec (9.0-12.0) H 11/14/16 03:30 INR 1.3 (<1.1) 11/14/16 03:30 Abnormal lab findings: Abnormal Labs 11/13/16 11/13/16 11/14/16 21:54 21:54 03:30 WBC 14.2 H RBC 3.13 L Hgb 7.7 L Hct 26.8 L MCH 24.5 L MCHC 28.6 L RDW 18.0 H Plt Count 503 H D Neutrophils # 12.3 H Neutrophils # (Manual) Lymphocytes # 0.8 L Lymphocytes # (Manual) Nucleated RBCs PT 12.5 H 13.0 H APTT 38.5 H 93.9 H Sodium Potassium Chloride Carbon Dioxide BUN Creatinine Glucose POC Glucose (mg/dL) Calcium Phosphorus Albumin 11/14/16 11/14/16 11/14/16 03:30 03:30 03:30 WBC 12.9 H RBC 2.93 L Hgb 7.6 L Hct 25.3 L MCH MCHC 29.9 L RDW 18.4 H Plt Count 459 H Neutrophils # 11.0 H Neutrophils # (Manual) Lymphocytes # Lymphocytes # (Manual) Nucleated RBCs PT APTT Sodium 133 L Potassium 2.9 L* Chloride 86 L Carbon Dioxide 37 H BUN 58 H Creatinine Glucose 159 H POC Glucose (mg/dL) Calcium 6.1 L* Phosphorus 4.7 H Albumin 2.2 L 11/14/16 11/14/16 11/14/16 07:23 12:22 12:26 WBC RBC Hgb Hct MCH MCHC RDW Plt Count Neutrophils # Neutrophils # (Manual) Lymphocytes # Lymphocytes # (Manual) Nucleated RBCs PT APTT 36.1 H Sodium Potassium Chloride Carbon Dioxide BUN Creatinine Glucose POC Glucose (mg/dL) 144 H 157 H Calcium Phosphorus Albumin 11/14/16 11/14/16 11/14/16 12:26 15:58 17:43 WBC RBC Hgb Hct MCH MCHC RDW Plt Count Neutrophils # Neutrophils # (Manual) Lymphocytes # Lymphocytes # (Manual) Nucleated RBCs PT APTT Sodium Potassium 3.0 L* 2.8 L* Chloride Carbon Dioxide BUN Creatinine Glucose POC Glucose (mg/dL) 114 H Calcium Phosphorus Albumin 11/14/16 11/14/16 11/15/16 19:40 20:08 04:18 WBC 14.8 H RBC 3.13 L Hgb 7.7 L Hct 27.2 L MCH 24.6 L MCHC 28.3 L RDW 18.0 H Plt Count 506 H Neutrophils # Neutrophils # (Manual) 12.9 H Lymphocytes # Lymphocytes # (Manual) 0.9 L Nucleated RBCs 1 H PT APTT 54.0 H Sodium Potassium Chloride Carbon Dioxide BUN Creatinine Glucose POC Glucose (mg/dL) 236 H Calcium Phosphorus Albumin 11/15/16 11/15/16 11/15/16 04:18 04:18 07:29 WBC RBC Hgb Hct MCH MCHC RDW Plt Count Neutrophils # Neutrophils # (Manual) Lymphocytes # Lymphocytes # (Manual) Nucleated RBCs PT APTT 49.3 H Sodium 134 L Potassium Chloride 88 L Carbon Dioxide 34 H BUN 59 H Creatinine 1.30 H Glucose POC Glucose (mg/dL) 121 H Calcium 5.9 L* Phosphorus Albumin - Diagnostic Findings Chest x-ray: image reviewed (Evidence of congestive heart failure and bilateral pleural effusions noted) Assessment and Plan Plan: Impression: 1 acute on chronic congestive heart failure secondary to diastolic dysfunction and possibly some component of LV dysfunction based on the echocardiogram. 2 recent aortic valve replacement and mitral valve repair. 3 recent sternal 1 dehiscence requiring pectoralis muscle flap. 4 history of coronary artery disease and previous CABG. 5 acute hypoxic respiratory failure secondary to congestive heart failure, and bilateral pleural effusions. 6 persistent atrial fibrillation with variable rate, patient remains on IV heparin. 7 history of pleural effusions requiring thoracentesis 2 on the right side. Whenever effusion his left seems to be a bit loculated, may or may not require further drainage. That will be left up to the thoracic surgeon on the case to decide. 8 moderate severe pulmonary hypertension. 9 history of chronic histoplasmosis. 10 history of degenerative joint disease. 11 history of GERD without esophagitis. 12 history of hypothyroidism. 13 history of coronary artery disease and previous CABG. Recommendation: Continue present treatment plan including diuretics, antibiotics , antifungal therapy as per infectious disease on the case, I fully agree with the present treatment plan, will continue to follow. Time with Patient: Greater than 30
[2016-11-15] MEDS: IPRATROPIUM-ALBUTEROL 3 ML NEB INHALATION SCH ×3 (11:41→20:02)
[2016-11-15] MEDS ORDERED: METOPROLOL TARTRATE 12.5 MG TAB PO ONE (12:00)
[2016-11-15] MEDS: MULTIVITAMINS, THERA 1 EACH TAB PO SCH (12:52)
--- NOTE | 2016-11-15 13:58 | P.GSCN ---
History of Present Illness Consult date: 11/15/16 Reason for Consult: Patient known to us as he is status post aortic valve replacement, mitral valve repair Requesting physician: Alcon Dillon History of present illness: This 71-year-old patient with a history of atrial fibrillation, heart failure, hyperlipidemia, hypothyroidism presented to [facility] from [facility] where he had been for rehabilitation, developed respiratory distress, and was transferred to the ICU. He is well-known to us as he is postop day #50 aortic valve replacement, mitral valve repair, mediastinal lymph node biopsy, and postop day #32 muscle flap closure after sternal wound dehiscence. This patient had a stormy recovery from surgery, including the need for left chest tube placement, right thoracentesis, sputum cultures positive for Haemophilus influenza and Serratia marcescens, and significant physical rehabilitation needs. He was transferred to this facility secondary to pleural effusion requiring thoracentesis and possible future Pleurx catheter placement. Currently thoracic surgery was consulted to monitor his progress as well as decision making regarding pleural effusions. Review of Systems 14 point review systems was completed and was negative except as noted. Past Medical History Past Medical History: Atrial Fibrillation, Cancer, Heart Failure, Hyperlipidemia , Osteoarthritis (OA), Thyroid Disorder Additional Past Medical History / Comment(s): Current mediastinal lymphadenopathy with histoplasmosis being tx with ABX by Dr. Ramos, THYROID CANCER with surgery/radiation, varicose veins, rheumatic fever, paroxysmal atrial fibrillation, aortic valve insufficiency and mitral valve regurgitation- recent valvular surgery, moderate pulmonary hypertension History of Any Multi-Drug Resistant Organisms: None Reported Past Surgical History: Cardiac Valve Replacement, Heart Catheterization, Joint Replacement Additional Past Surgical History / Comment(s): thyroidectomy, total left knee replacement, 08/2016cardiac cath/fabiola, 09/29/16 aortic valve replacement with bovine valve, mitral valve repair, mediastinal lymph node biopsy, colonoscopies/ polypectomy-benign. Past Anesthesia/Blood Transfusion Reactions: No Reported Reaction Past Psychological History: No Psychological Hx Reported Additional Psychological History / Comment(s): Pt resides with his spouse. He has [facility] home care. He uses no assistive device. He has not driven since cardiac valve surgery, his spouse does the driving.SMOKED 3 PPD. Started smoking in 1959 and QUIT SMOKING 1979. Pt smoked cigars on and off from 1991 until 1999. He denies any medical marijuana, marijuana, street drug use. He states he has not had any alcohol intake for the past 3 months. He usually drinks 0-2 alcoholic beverages per day. He has traveled in the past in [facility], [place], [facility], [place] and [place]. He has worked in the past at [employer]. Smoking Status: Former smoker Past Alcohol Use History: Rare Additional Past Alcohol Use History / Comment(s): SMOKED 3 PPD. Started smoking in 1959 and QUIT SMOKING 1979. Pt smoked cigars on and off from 1991 until 1999. He denies any medical marijuana, marijuana, street drug use. He states he has not had any alcohol intake for the past 3 months. He usually drinks 0-2 alcoholic beverages per day. He has traveled in the past in [place], [place] , [place], [facility], [place] and [place]. He has worked in the past at [employer]. Past Drug Use History: None Reported - Past Family History Father Family Medical History: Coronary Artery Disease (CAD) Additional Family Medical History / Comment(s): Father at 76yrs from heart problems. Mother Family Medical History: No Reported History Additional Family Medical History / Comment(s): Mother at the age of 92 yrs. She had varicose veins Brother(s) Family Medical History: Cancer Additional Family Medical History / Comment(s): LIVER CA. BLOOD CLOT. Medications and Allergies Home Medications Medication Instructions Recorded Confirmed Type Aspirin 81 mg PO DAILY 11/14/14 11/14/16 History Levothyroxine Sodium [Synthroid] 150 mcg PO DAILY 11/15/14 11/14/16 History Multivitamins, Thera [Multivitamin 1 tab PO DAILY@1200 10/06/16 11/14/16 History (formulary)] Warfarin [Coumadin] 5 mg PO DAILY 10/06/16 11/14/16 History Furosemide [Lasix] 40 mg PO DAILY PRN 11/14/16 11/14/16 History INSULIN LISPRO (humaLOG) [humaLOG See Protocol SQ ACHS 11/14/16 11/14/16 History (formulary)] Lovastatin [Mevacor] 40 mg PO HS 11/14/16 11/14/16 History Potassium Chloride ER [K-Dur 10] 10 meq PO DAILY PRN 11/14/16 11/14/16 History Allergies Allergy/AdvReac Type Severity Reaction Status Date / Time No Known Allergies Allergy Verified 11/14/16 08:47 Surgical - Exam Vital Signs Resp BP 25 H 84/58 11/13/16 20:28 11/13/16 20:28 - General well developed, well nourished, no distress - Eyes PERRL, normal ocular movement - ENT no hearing loss - Neck trachea midline - Respiratory Lungs sounds diminished bilaterally. Respirations even, nonlabored. Currently on 6 L high flow nasal cannula with oxygen saturation 92%. Only able to achieve 500 mL on his incentive spirometry. - Cardiovascular S1, S2 present. Irregular, tachycardic rate and rhythm, atrial fibrillation on telemetry. Bilateral lower extremity edema is present. - Abdomen Abdomen: soft, non tender, bowel sounds - Genitourinary Voiding clear, yellow urine. - Rectum Deferred - Integumentary Anterior chest incision well approximated with intact yoli and covered with dry dressing. Right, left and middle MEGHAN drains still present. Right and left with minimal serous drainage. Middle MEGHAN with 500 mL output in the last 24 hours. - Neurologic normal sensation - Psychiatric oriented to time, oriented to person, oriented to place, speech is normal, memory intact Results - Labs 11/15/16 04:18 11/15/16 04:18 Abnormal Lab Results - Last 24 Hours (Table) 11/14/16 11/14/16 11/14/16 Range/Units 12:26 15:58 17:43 WBC (3.8-10.6) k/uL RBC (4.30-5.90) m/uL Hgb (13.0-17.5) gm/dL Hct (39.0-53.0) % MCH (25.0-35.0) pg MCHC (31.0-37.0) g/dL RDW (11.5-15.5) % Plt Count (150-450) k/uL Neutrophils # (Manual) (1.3-7.7) k/uL Lymphocytes # (Manual) (1.0-4.8) k/uL Nucleated RBCs (0-0) /100 WBC APTT 36.1 H (22.0-30.0) sec Sodium (137-145) mmol/L Potassium 2.8 L* (3.5-5.1) mmol/L Chloride (98-107) mmol/L Carbon Dioxide (22-30) mmol/L BUN (9-20) mg/dL Creatinine (0.66-1.25) mg/dL POC Glucose (mg/dL) 114 H (75-99) mg/dL Calcium (8.4-10.2) mg/dL 11/14/16 11/14/16 11/15/16 Range/Units 19:40 20:08 04:18 WBC 14.8 H (3.8-10.6) k/uL RBC 3.13 L (4.30-5.90) m/uL Hgb 7.7 L (13.0-17.5) gm/dL Hct 27.2 L (39.0-53.0) % MCH 24.6 L (25.0-35.0) pg MCHC 28.3 L (31.0-37.0) g/dL RDW 18.0 H (11.5-15.5) % Plt Count 506 H (150-450) k/uL Neutrophils # (Manual) 12.9 H (1.3-7.7) k/uL Lymphocytes # (Manual) 0.9 L (1.0-4.8) k/uL Nucleated RBCs 1 H (0-0) /100 WBC APTT 54.0 H (22.0-30.0) sec Sodium (137-145) mmol/L Potassium (3.5-5.1) mmol/L Chloride (98-107) mmol/L Carbon Dioxide (22-30) mmol/L BUN (9-20) mg/dL Creatinine (0.66-1.25) mg/dL POC Glucose (mg/dL) 236 H (75-99) mg/dL Calcium (8.4-10.2) mg/dL 11/15/16 11/15/16 11/15/16 Range/Units 04:18 04:18 07:29 WBC (3.8-10.6) k/uL RBC (4.30-5.90) m/uL Hgb (13.0-17.5) gm/dL Hct (39.0-53.0) % MCH (25.0-35.0) pg MCHC (31.0-37.0) g/dL RDW (11.5-15.5) % Plt Count (150-450) k/uL Neutrophils # (Manual) (1.3-7.7) k/uL Lymphocytes # (Manual) (1.0-4.8) k/uL Nucleated RBCs (0-0) /100 WBC APTT 49.3 H (22.0-30.0) sec Sodium 134 L (137-145) mmol/L Potassium (3.5-5.1) mmol/L Chloride 88 L (98-107) mmol/L Carbon Dioxide 34 H (22-30) mmol/L BUN 59 H (9-20) mg/dL Creatinine 1.30 H (0.66-1.25) mg/dL POC Glucose (mg/dL) 121 H (75-99) mg/dL Calcium 5.9 L* (8.4-10.2) mg/dL 11/15/16 Range/Units 11:13 WBC (3.8-10.6) k/uL RBC (4.30-5.90) m/uL Hgb (13.0-17.5) gm/dL Hct (39.0-53.0) % MCH (25.0-35.0) pg MCHC (31.0-37.0) g/dL RDW (11.5-15.5) % Plt Count (150-450) k/uL Neutrophils # (Manual) (1.3-7.7) k/uL Lymphocytes # (Manual) (1.0-4.8) k/uL Nucleated RBCs (0-0) /100 WBC APTT (22.0-30.0) sec Sodium (137-145) mmol/L Potassium (3.5-5.1) mmol/L Chloride (98-107) mmol/L Carbon Dioxide (22-30) mmol/L BUN (9-20) mg/dL Creatinine (0.66-1.25) mg/dL POC Glucose (mg/dL) 166 H (75-99) mg/dL Calcium (8.4-10.2) mg/dL Diabetes panel 11/13/16 11/14/16 11/14/16 Range/Units 21:54 15:58 21:30 Sodium (137-145) mmol/L Potassium 2.8 L* 4.2 (3.5-5.1) mmol/L Chloride (98-107) mmol/L Carbon Dioxide (22-30) mmol/L BUN (9-20) mg/dL Creatinine (0.66-1.25) mg/dL Glucose (74-99) mg/dL Hemoglobin A1c 5.2 (4.2-6.1) % Calcium (8.4-10.2) mg/dL 11/15/16 Range/Units 04:18 Sodium 134 L (137-145) mmol/L Potassium 4.1 (3.5-5.1) mmol/L Chloride 88 L (98-107) mmol/L Carbon Dioxide 34 H (22-30) mmol/L BUN 59 H (9-20) mg/dL Creatinine 1.30 H (0.66-1.25) mg/dL Glucose 96 (74-99) mg/dL Hemoglobin A1c (4.2-6.1) % Calcium 5.9 L* (8.4-10.2) mg/dL Calcium panel 11/15/16 Range/Units 04:18 Calcium 5.9 L* (8.4-10.2) mg/dL Phosphorus 3.6 (2.5-4.5) mg/dL Pituitary panel 11/14/16 11/14/16 11/15/16 Range/Units 15:58 21:30 04:18 Sodium 134 L (137-145) mmol/L Potassium 2.8 L* 4.2 4.1 (3.5-5.1) mmol/L Chloride 88 L (98-107) mmol/L Carbon Dioxide 34 H (22-30) mmol/L BUN 59 H (9-20) mg/dL Creatinine 1.30 H (0.66-1.25) mg/dL Glucose 96 (74-99) mg/dL Calcium 5.9 L* (8.4-10.2) mg/dL Adrenal panel 11/14/16 11/14/16 11/15/16 Range/Units 15:58 21:30 04:18 Sodium 134 L (137-145) mmol/L Potassium 2.8 L* 4.2 4.1 (3.5-5.1) mmol/L Chloride 88 L (98-107) mmol/L Carbon Dioxide 34 H (22-30) mmol/L BUN 59 H (9-20) mg/dL Creatinine 1.30 H (0.66-1.25) mg/dL Glucose 96 (74-99) mg/dL Calcium 5.9 L* (8.4-10.2) mg/dL - Imaging Chest x-ray: image reviewed Assessment and Plan (1) Congestive heart failure Status: Acute (2) Hypercholesterolemia Status: Acute (3) Hypertension Status: Acute (4) Hypothyroidism (acquired) Status: Acute (5) Obesity Status: Acute (6) Paroxysmal a-fib Status: Acute (7) Status post aortic valve replacement Status: Acute (8) Status post mitral valve repair Status: Acute Plan: 1. Continue aspirin, amiodarone, Lasix, Zaroxolyn, Lopressor. 2. Antibiotics per pulmonology. 3. Medical comorbidities to be managed by internal medicine. 4. Wean O2 as tolerated. Encourage incentive spirometry use. 5. Encourage increased activity. Physical therapy to follow 6. No indication for cardiothoracic surgical intervention at this time. 7. Will continue to monitor, recommendations based on patient's progress. Time with Patient: Greater than 30
[2016-11-15 16:22] LABS: Glucose,Whole Blood 169 mg/dL (75-99)
[2016-11-15] MEDS: WARFARIN 5 MG TAB PO SCH (17:28)
[2016-11-15] MEDS: ATORVASTATIN 10 MG TAB PO SCH (20:24)
[2016-11-15] MEDS: METOPROLOL TARTRATE 25 MG TAB PO SCH (20:24)
[2016-11-15 21:32] LABS: Glucose,Whole Blood 134 mg/dL (75-99)
--- NOTE | 2016-11-15 21:46 | P.CON ---
Consult Note - . Consult date: 11/15/16 Assessment/Plan:: This is a 71-year-old male well known to ID service who came in the hospital on September 23 and underwent a JAYDE and heart catheterization showing a ruptured chordae tendonae, mitral regurgitation, moderate pulmonary hypertension , with history of paroxysmal atrial fibrillation and heart failure. 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 With this the patient was initiated to itraconazole. He however developed atrial fibrillation. Because of this he was initiated to amiodarone. The dose of itraconazole was reduced by 50%. There is no evidence of alteration of the QT interval while he was in hospital. He eventually was discharged home. It is related that he was not able to obtain the itraconazole. In this is going to be addressed in the coming days. However he returned to [facility] emergency center due to shortness of breath and was hospitalized October 06 through October 30 at which time he required intubation and mechanical ventilation. He was successfully extubated. He was treated for dehiscence of sternal wires requiring sternal exploration, debridement and wound closure with bilateral pectoralis major myocutaneous advanced flaps. He also required chest tube placement for left pleural effusion and right thoracentesis for right pleural effusion with drainage of 1.5 L of dark red tinged fluid. Muscle flap procedure was done on October 15. Patient was stabilized and then transferred to [facility] for inpatient rehab under the care of Dr. Christina. He developed increasing shortness of breath and edema and was eventually transferred to the intensive care unit where he was found to be in atrial fibrillation with rapid ventricular response and acute systolic heart failure and underwent thoracentesis with removal of 1.6 L on the right chest. Patient was treated in the intensive care unit until a bed was available at [facility] he was a direct transfer. Chest x-ray here shows developing pleural fluid collection along lateral right chest wall. Consults are in place with Dr. Gaffney, cardiovascular surgeon and cardiology. Patient has [address] with one showing some purulence for which a culture to be sent today. Patient has had some mild confusion since admission. He did receive extra dose of Lasix this morning. He has been afebrile. Patient is on heparin drip and amiodarone is oral. For antibiotics, patient is on Zosyn. Echocardiogram reveals EF 40-45%, normally functioning bioprosthetic valve, trace mitral regurgitation, mild tricuspid regurgitation. Sputum culture during his hospitalization of October 06 was positive for Haemophilus influenza and Serratia marcescens susceptible to Zosyn.please see the consult note as dictated by nurse practitioner Mrs Kayla Crawford. the patient is improving since his from the outside facility. He is more comfortable and less short of breath. He is denying much discomfort. It is noted therome drainage the change from the MEGHAN drain. This is been sent for culture and antibiotics are currently being utilize piperacillin tazobactam based on prior cultures. He reports he is feeling somewhat better today. Cardiothoracic input is in process. Cultures are in process will further help correct his antibiotic therapy. Fortunately he is quite comfortable at this time. I agree with evaluation, assessment and plan as dictated by nurse practitioner Mrs. Kayla Crawford.
--- NOTE | 2016-11-15 22:00 | PN ---
DATE OF SERVICE: 11/15/2016 PRESENTING COMPLAINT: Shortness of breath. INTERVAL HISTORY: This is a patient who presented with acute on chronic congestive heart failure exacerbation from diastolic dysfunction. Today patient is sitting up in bed, eating his breakfast. He has noticeable tremors, but he is able to feed himself. Patient is awake and alert, able to answer questions. No acute distress. Review of systems done for constitutional, cardiovascular, GI, pulmonary, with relevant findings as above. CURRENT MEDICATIONS: 1. DuoNeb q.i.d. 2. Amiodarone 200 mg p.o. daily. 3. Aspirin 81 mg p.o. daily. 4. Lipitor 10 mg at bedtime. 5. Lasix 40 mg IV q.8 hours. 6. Zaroxolyn 2.5 mg p.o. daily. 7. Lopressor 25 mg b.i.d. PHYSICAL EXAMINATION: VITAL SIGNS: Temperature 96.7, pulse 112, respirations 20, blood pressure 93/60, oxygen saturation 96% on 6 L high flow. GENERAL APPEARANCE: Patient is sitting up in bed, awake, alert, eating his breakfast. No acute distress noted. EYES: Pupils equal. Conjunctivae normal. NECK: JVD unable to assess. Mass not palpable. RESPIRATORY: Effort increased. LUNGS: Crackles to the bases bilaterally. CARDIOVASCULAR: Heart sounds irregular. Edema present. ABDOMEN: Pleural drains in place. PSYCHIATRY: Alert and oriented x3. Mood and affect mildly anxious. INVESTIGATIONS: White blood cell count 14.8, hemoglobin 7.7, platelet count 506. Sodium 134, potassium 4.1. BUN 59, creatinine 1.30. ASSESSMENT: 1. Acute on chronic congestive heart failure exacerbation from diastolic dysfunction, ejection fraction 55% to 60%, slow to improve. 2. Recent aortic valve replacement and moderate mitral valve repair. 3. Sternal wound dehiscence with pectoralis flap in place, slow to respond. 4. Coronary artery disease with prior coronary artery bypass. 5. Acute hypoxic respiratory failure, on high-flow nasal cannula, slow to respond. 6. Persistent atrial fibrillation, rate variable, on IV heparin. 7. Chronic histoplasmosis, status post biopsy. 8. Status post pleural effusion that was tapped. 9. Hypercholesterolemia. 10. Hypothyroidism. 11. Obesity. 12. Primary osteoarthritis of multiple joints bilaterally. 13. Moderate secondary pulmonary hypertension. 14. Gastroesophageal reflux disease. 15. CODE STATUS: FULL. PLAN: At the present time no surgical intervention is warranted based on clinical presentation per Cardiothoracic Surgery. ID will continue Zosyn and culture MEGHAN drain output, as there was some noted purulence. Pulmonology agrees with the current medication and treatment plan and they will continue to follow. Patient was seen and examined by nurse practitioner, Karyna Murray, and all elements of the case were discussed with attending, Dr. Dillon.
[2016-11-15 23:46] LABS: Glucose,Whole Blood 153 mg/dL (75-99)
[2016-11-16] MEDS: FUROSEMIDE 10 MG/ML 4 ML VIAL IV SCH ×2 (00:09→10:24)
[2016-11-16 00:16] LABS: Anisocytosis Slight; Basophils # (A) 0.1 k/uL (0-0.2); Basophils % (A) 1 %; CH 25.5; CHCM 28.9; Eosinophils # (A) 0.1 k/uL (0-0.7); Eosinophils % (A) 0 %; HDW 4.28; HGB 7.7 gm/dL (13.0-17.5); Hypochromasia Marked; Luc # (Auto) 0.29; Luc % (Auto) 1; Lymphocytes % (A) 5 %; MCH 25.2 pg (25.0-35.0); MCHC 28.7 g/dL (31.0-37.0); MCV 87.8 fL (80.0-100.0); Monocytes % (A) 5 %; Neutrophils # (A) 17.9 k/uL (1.3-7.7); Neutrophils % (A) 88 %; Poikilocytosis Moderate; RBC 3.07 m/uL (4.30-5.90); RDW 17.8 % (11.5-15.5); WBC 20.3 k/uL (3.8-10.6); WBC (Perox) 20.34
[2016-11-16 00:20] LABS: INR 1.3 (<1.1); Partial Thromboplastin Time 49.3 sec (22.0-30.0); Prothrombin Time 13.3 sec (9.0-12.0)
[2016-11-16 00:24] LABS: Potassium 3.7 mmol/L (3.5-5.1); Total Protein 6.1 g/dL (6.3-8.2)
[2016-11-16 00:27] LABS: Calcium 5.8 mg/dL (8.4-10.2)
[2016-11-16 01:30] LABS: Magnesium 1.9 mg/dL (1.6-2.3)
[2016-11-16] MEDS ORDERED: NOREPINEPHRIN 16 MG-0.9%NS PMX 16 MG/250 ML ML IV SCH (01:30)
[2016-11-16 01:59] LABS: Appearance,Urine Clear (Clear); Bilirubin,Urine Negative (Negative); Glucose,Urine (UA) Negative (Negative); Ketones,Urine Negative (Negative); Leukocyte Esterase,Urine Negative (Negative); Nitrite,Urine Negative (Negative); Protein,Urine Negative (Negative); Specific Gravity,Urine 1.009 (1.001-1.035); UA Billing (MACRO vs. MICRO) CHEM; Urobilinogen,Urine <2.0 mg/dL (<2.0)
[2016-11-16 04:32] LABS: Magnesium 1.8 mg/dL (1.6-2.3); Phosphorous 5.1 mg/dL (2.5-4.5); Potassium 3.5 mmol/L (3.5-5.1)
[2016-11-16 04:34] LABS: Calcium 5.8 mg/dL (8.4-10.2)
[2016-11-16 05:28] LABS: Anisocytosis Slight; Basophils # (A) 0.1 k/uL (0-0.2); Basophils % (A) 0 %; CH 25.3; CHCM 29.6; Eosinophils # (A) 0.1 k/uL (0-0.7); Eosinophils % (A) 0 %; HCT 27.7 % (39.0-53.0); HDW 4.24; HGB 8.1 gm/dL (13.0-17.5); Hypochromasia Marked; Luc # (Auto) 0.34; Luc % (Auto) 2; Lymphocytes # (A) 1.2 k/uL (1.0-4.8); Lymphocytes % (A) 6 %; MCH 24.9 pg (25.0-35.0); MCHC 29.3 g/dL (31.0-37.0); Mean Platelet Volume 7.9; Monocytes # (A) 0.9 k/uL (0-1.0); Monocytes % (A) 4 %; Neutrophils # (A) 17.7 k/uL (1.3-7.7); Neutrophils % (A) 87 %; Poikilocytosis Moderate; RBC 3.26 m/uL (4.30-5.90); RDW 18.2 % (11.5-15.5); WBC 20.3 k/uL (3.8-10.6); WBC (Perox) 22.04
[2016-11-16] MEDS ORDERED: Potassium Replacement Protocol 1 EACH MISC MISCELLANE PRN (06:34)
[2016-11-16] MEDS ORDERED: Magnesium Replacement Protocol 1 EACH MISC MISCELLANE PRN (06:39)
[2016-11-16 07:26] LABS: INR 1.4 (<1.1); Prothrombin Time 13.4 sec (9.0-12.0)
[2016-11-16] MEDS: IPRATROPIUM-ALBUTEROL 3 ML NEB INHALATION SCH ×4 (07:42→19:43)
--- NOTE | 2016-11-16 08:13 | XR ---
EXAMINATION TYPE: XR chest 1V portable DATE OF EXAM: 11/16/2016 6:39 AM Comparison: 11/15/2016 Clinical History: 71-year-old male CHF Findings: Midline skin yoli are present with a drain projecting over each hemithorax. Multiple lines and tub es project over the chest. Left PICC tip in the upper right atrium. Lung volumes are low. Diffuse int erstitial and vascular prominence similar to slightly increased. Continued small to moderate effusion s with bibasilar opacities. Impression: 1. Stable to minimally worsened CHF and pulmonary vascular congestion/interstitial edema. 2. Continued small to moderate pleural effusions with adjacent atelectasis and/or consolidation.
--- NOTE | 2016-11-16 08:30 | PN ---
DATE OF SERVICE: 11/15/2016 ATTENDING NOTE: Patient seen and examined by me earlier today. I reviewed the note of my nurse practitioner, Ms. Murray and I agree with the same. Patient was transferred from [facility]. Sitting up, having his meal. is at the bedside. Breathing is somewhat better. Chest drain is still in place with bloody secretion. On examination, afebrile, blood pressure 93/60, pulse ox 96% on 6-L. GENERAL APPEARANCE: Sitting up, awake. LUNGS: Decreased breath sounds. Some crackles. CARDIOVASCULAR: Heart sounds irregular. Some edema is present. INVESTIGATIONS: White count 14.8, hemoglobin 7.7, potassium 4.1, BUN 59, creatinine 1.30. ASSESSMENT: Multiple medical problems including congestive heart failure, coronary artery disease, atrial fibrillation, IV heparin monitoring. PLAN: Care was discussed with Dr. Gaffney, with at the bedside. The patient is slowly improved from before. Will also await the cultures from [facility] that had been asked for. Awaiting fungal. Follow with ID and other colleagues.
[2016-11-16] MEDS ORDERED: CALCIUM GLUCONATE 2,000 MG in SODIUM CHLORIDE 0.9% 100 ML IVPB ONE (09:30)
[2016-11-16] MEDS ORDERED: DIGOXIN 250 MCG/ML 2 ML AMP IVP STA (09:33)
[2016-11-16] MEDS: MAGNESIUM SULFATE-D5W PMX 1 GM in DEXTROSE/WATER 1 100ML.BAG IVPB SCH ×2 (10:20→11:34)
[2016-11-16] MEDS: POTASSIUM CHLORIDE ER 20 MEQ TAB.ER PO SCH ×2 (10:20→12:16)
[2016-11-16] MEDS: INSULIN LISPRO (humaLOG) 300 UNIT/3 ML VIAL SQ SCH ×4 (10:21→21:29)
[2016-11-16] MEDS: METOPROLOL TARTRATE 25 MG TAB PO SCH ×2 (10:25→22:25)
[2016-11-16] MEDS: METOLAZONE 2.5 MG TAB PO SCH (10:25)
--- NOTE | 2016-11-16 10:41 | P.PN ---
Subjective Principal diagnosis: POD #51 aortic valve replacement, mitral valve repair, mediastinal lymph node biopsy. POD #33 muscle flap closure after sternal wound dehiscence. currently sitting up in bed in no apparent distress. Was transferred back to the intensive care unit last night secondary to elevated lactic acid level of 4.2. Current lactic acid is 1.7. Patient was started on Levophed drip for hypotension as well. Objective - Vital Signs Vital signs: Vital Signs Temp 99.1 F 11/16/16 08:00 Pulse 113 H 11/16/16 10:00 Resp 20 11/16/16 10:00 BP 88/66 11/16/16 10:00 Pulse Ox 99 11/16/16 00:00 Intake & Output 11/15/16 11/16/16 11/16/16 18:59 06:59 18:59 Intake Total 310 1116.016 20 Output Total 200 1325 65 Balance 110 -208.984 -45 Weight 105.9 kg Intake: IV 260 1110 20 Heparin Sodium,Porcine/ 80 320 D5w Pmx 25,000 unit In Dextrose/Water 1 500ml. bag @ 15 UNITS/KG/HR 32. 01 mls/hr IV .[id number] STEVAN Rx#:[id number] Piperacillin-Tazobactam 3 50 .375 gm In Dextrose/Water 1 50ml.bag @ 12.5 mls/hr IVPB Q8HR STEVAN Rx#: [id number] Sodium Chloride 0.9% 1, 180 740 20 000 ml @ 20 mls/hr IV . Q24H STEVAN Rx#:[id number] Intake, IV Titration 50 6.016 Amount Norepinephrin 16 mg-0.9% 6.016 Ns Pmx 16 mg In 250 ml @ Titrate IV .Q0M STEVAN Rx#: [id number] Piperacillin-Tazobactam 3 50 .375 gm In Dextrose/Water 1 50ml.bag @ 12.5 mls/hr IVPB Q8HR STEVAN Rx#: [id number] Output: Drainage 60 Left Lateral MEGHAN Drain 0 Medial MEGHAN Drain 60 Right Lateral MEGHAN Drain 0 Urine 200 1265 65 Other: Voiding Method Urinal Urinal - Constitutional General appearance: Present: cooperative, no acute distress, obese - Respiratory Details: Lungs sounds diminished bilaterally. Respirations even, nonlabored. Currently on 6 L nasal cannula with oxygen saturations in the mid 90s. - Cardiovascular Details: S1, S2 present. Irregular tachycardia rate and rhythm. Atrial fibrillation with rapid ventricular response on telemetry. Bilateral lower extremity edema present. - Gastrointestinal Gastrointestinal Comment(s): Abdomen soft, nontender tender, nondistended. Active bowel sounds 4 quadrants. Tolerating diet. - Genitourinary Genitourinary Comment(s): Duong present draining clear, yellow urine. Urine output 65 mL per hour. - Integumentary Integumentary Comment(s): Anterior chest incision well approximated with intact yoli present. - Neurologic Neurologic Comment(s): Positive tremors present. - Musculoskeletal Musculoskeletal: Present: generalized weakness - Psychiatric Psychiatric: Present: A&O x's 3, appropriate affect, intact judgment & insight - Allied health notes Allied health notes reviewed: nursing - Labs CBC & Chem 7: 11/16/16 03:39 11/16/16 03:39 Labs: Abnormal Lab Results - Last 24 Hours (Table) 11/15/16 11/15/16 11/15/16 Range/Units 11:13 16:20 21:31 WBC (3.8-10.6) k/uL RBC (4.30-5.90) m/uL Hgb (13.0-17.5) gm/dL Hct (39.0-53.0) % MCH (25.0-35.0) pg MCHC (31.0-37.0) g/dL RDW (11.5-15.5) % Plt Count (150-450) k/uL Neutrophils # (1.3-7.7) k/uL PT (9.0-12.0) sec APTT (22.0-30.0) sec Sodium (137-145) mmol/L Chloride (98-107) mmol/L BUN (9-20) mg/dL Creatinine (0.66-1.25) mg/dL Glucose (74-99) mg/dL POC Glucose (mg/dL) 166 H 169 H 134 H (75-99) mg/dL Plasma Lactic Acid Samir (0.7-2.0) mmol/L Calcium (8.4-10.2) mg/dL Phosphorus (2.5-4.5) mg/dL Total Protein (6.3-8.2) g/dL Albumin (3.5-5.0) g/dL 11/15/16 11/15/16 11/15/16 Range/Units 23:44 23:51 23:51 WBC 20.3 H (3.8-10.6) k/uL RBC 3.07 L (4.30-5.90) m/uL Hgb 7.7 L (13.0-17.5) gm/dL Hct 27.0 L (39.0-53.0) % MCH (25.0-35.0) pg MCHC 28.7 L (31.0-37.0) g/dL RDW 17.8 H (11.5-15.5) % Plt Count 579 H (150-450) k/uL Neutrophils # 17.9 H (1.3-7.7) k/uL PT (9.0-12.0) sec APTT (22.0-30.0) sec Sodium 130 L (137-145) mmol/L Chloride 85 L (98-107) mmol/L BUN 61 H (9-20) mg/dL Creatinine 1.50 H (0.66-1.25) mg/dL Glucose 125 H (74-99) mg/dL POC Glucose (mg/dL) 153 H (75-99) mg/dL Plasma Lactic Acid Samir (0.7-2.0) mmol/L Calcium 5.8 L* (8.4-10.2) mg/dL Phosphorus (2.5-4.5) mg/dL Total Protein 6.1 L (6.3-8.2) g/dL Albumin 2.6 L (3.5-5.0) g/dL 11/15/16 11/15/16 11/15/16 Range/Units 23:51 23:51 23:57 WBC (3.8-10.6) k/uL RBC (4.30-5.90) m/uL Hgb (13.0-17.5) gm/dL Hct (39.0-53.0) % MCH (25.0-35.0) pg MCHC (31.0-37.0) g/dL RDW (11.5-15.5) % Plt Count (150-450) k/uL Neutrophils # (1.3-7.7) k/uL PT 13.3 H (9.0-12.0) sec APTT 49.3 H (22.0-30.0) sec Sodium (137-145) mmol/L Chloride (98-107) mmol/L BUN (9-20) mg/dL Creatinine (0.66-1.25) mg/dL Glucose (74-99) mg/dL POC Glucose (mg/dL) (75-99) mg/dL Plasma Lactic Acid Samir 4.2 H* (0.7-2.0) mmol/L Calcium (8.4-10.2) mg/dL Phosphorus 5.0 H (2.5-4.5) mg/dL Total Protein (6.3-8.2) g/dL Albumin (3.5-5.0) g/dL 11/16/16 11/16/16 11/16/16 Range/Units 03:39 03:39 03:39 WBC 20.3 H (3.8-10.6) k/uL RBC 3.26 L (4.30-5.90) m/uL Hgb 8.1 L (13.0-17.5) gm/dL Hct 27.7 L (39.0-53.0) % MCH 24.9 L (25.0-35.0) pg MCHC 29.3 L (31.0-37.0) g/dL RDW 18.2 H (11.5-15.5) % Plt Count 578 H (150-450) k/uL Neutrophils # 17.7 H (1.3-7.7) k/uL PT (9.0-12.0) sec APTT 48.4 H (22.0-30.0) sec Sodium 131 L (137-145) mmol/L Chloride 87 L (98-107) mmol/L BUN 62 H (9-20) mg/dL Creatinine 1.41 H (0.66-1.25) mg/dL Glucose 138 H (74-99) mg/dL POC Glucose (mg/dL) (75-99) mg/dL Plasma Lactic Acid Samir (0.7-2.0) mmol/L Calcium 5.8 L* (8.4-10.2) mg/dL Phosphorus 5.1 H (2.5-4.5) mg/dL Total Protein (6.3-8.2) g/dL Albumin (3.5-5.0) g/dL 11/16/16 Range/Units 03:39 WBC (3.8-10.6) k/uL RBC (4.30-5.90) m/uL Hgb (13.0-17.5) gm/dL Hct (39.0-53.0) % MCH (25.0-35.0) pg MCHC (31.0-37.0) g/dL RDW (11.5-15.5) % Plt Count (150-450) k/uL Neutrophils # (1.3-7.7) k/uL PT 13.4 H (9.0-12.0) sec APTT (22.0-30.0) sec Sodium (137-145) mmol/L Chloride (98-107) mmol/L BUN (9-20) mg/dL Creatinine (0.66-1.25) mg/dL Glucose (74-99) mg/dL POC Glucose (mg/dL) (75-99) mg/dL Plasma Lactic Acid Samir (0.7-2.0) mmol/L Calcium (8.4-10.2) mg/dL Phosphorus (2.5-4.5) mg/dL Total Protein (6.3-8.2) g/dL Albumin (3.5-5.0) g/dL Microbiology - Last 24 Hours (Table) 11/15/16 10:30 Gram Stain - Preliminary Pericardial Fluid Body Fluid Culture - Preliminary - Imaging and Cardiology Chest x-ray: image reviewed Assessment and Plan (1) Congestive heart failure Status: Acute (2) Hypercholesterolemia Status: Acute (3) Hypertension Status: Acute (4) Hypothyroidism (acquired) Status: Acute (5) Obesity Status: Acute (6) Paroxysmal a-fib Status: Acute (7) Status post aortic valve replacement Status: Acute (8) Status post mitral valve repair Status: Acute Plan: 1. Continue aspirin, amiodarone, Lopressor. Digoxin 500 g oral 1 dose ordered. 2. Lasix, Zaroxolyn on hold for today, patient given fluid bolus last night per pulmonology. 3. Body fluid culture from MEGHAN drains sent yesterday, pending. Will follow culture results. Antibiotics per pulmonology. 4. Wean off levo as tolerated. 5. Medical comorbidities to be managed by internal medicine.4. Wean O2 as tolerated. Encourage incentive spirometry use. 6. Encourage increased activity. Physical therapy to follow 7. No indication for cardiothoracic surgical intervention at this time. 8. Will continue to monitor, recommendations based on patient's progress. Time with Patient: Greater than 30
[2016-11-16] MEDS: LEVOTHYROXINE 75 MCG TAB PO SCH (10:42)
[2016-11-16] MEDS: PANTOPRAZOLE 40 MG TABLET PO SCH (10:42)
[2016-11-16] MEDS: PIPERACILLIN-TAZOBACTAM 3.375 GM in DEXTROSE/WATER 1 50ML.BAG IVPB SCH ×2 (10:42→18:03)
[2016-11-16] MEDS: AMIODARONE 200 MG TAB PO SCH (10:43)
[2016-11-16] MEDS: ASPIRIN 81 MG CHEW PO SCH (10:43)
[2016-11-16] MEDS: MULTIVITAMINS, THERA 1 EACH TAB PO SCH (12:15)
[2016-11-16] MEDS: HEPARIN SODIUM,PORCINE/D5W PMX 25,000 UNIT in DEXTROSE/WATER 1 500ML.BAG IV SCH ×2 (12:17→22:24)
[2016-11-16 14:13] LABS: Glucose,Whole Blood 157 mg/dL (75-99)
--- NOTE | 2016-11-16 15:31 | P.PN ---
Subjective Principal diagnosis: Pulmonary edema and bilateral pleural effusions, atrial fibrillation with RVR. 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 Patient was eventually discharged home after a relatively prolonged hospital course, patient was readmitted on October 06 through October 30 with increased shortness of breath, and he was found to have congestive heart failure, sterility 1 dehiscence requiring sternal exploration and debridement and wound closure with bilateral pectoralis muscle flaps. During that admission , patient also required left sided chest tube placement, right sided thoracentesis, patient was eventually extubated, and transferred to rehab at [facility] under the care of Dr. Reyes. However after few days, patient developed congestive heart failure, worsening pleural effusion requiring thoracentesis again, loculated pleural effusion on the right side was noted based on ultrasound and CT of the chest, there was some purulence noted in his MEGHAN drains which are mediastinal drains, hence arrangements were made to transfer the patient back to [facility]. Patient was initially admitted to the intensive care unit, placed on broad-spectrum antibiotics, he is on heparin drip, and his last hospitalization while at [facility], his sputum was positive for Haemophilus influenza and Serratia marcescens. At any rate patient is to be seen by many consultants during this transfer, and I was asked to see him on consultation today. Patient was placed back on his usual medications, diuretics, I reviewed her chest x-ray, and I felt that the patient has bilateral pleural effusions, small at this point, will not require thoracentesis at least not for now. Patient was reevaluated today on 11/16/2016, breathing a bit easier, however the patient is requiring levo fed for low blood pressure. Remains in atrial fibrillation, but rate seems to be better controlled today. Remains on antibiotics for presumptive infectious process, however cultures have been negative so far. Chest x-ray continues to show bilateral pleural effusions and congestive heart failure changes. Lasix is presently on hold. Since the blood pressure was marginal earlier today requiring transferring back to the ICU. Objective - Vital Signs Vital signs: Vital Signs Temp 96.0 F L 05/23/17 12:00 Pulse 103 H 11/16/16 14:00 Resp 16 11/16/16 14:00 BP 102/58 11/16/16 14:00 Pulse Ox 91 L 11/16/16 14:00 Intake & Output 11/15/16 11/16/16 11/16/16 18:59 06:59 18:59 Intake Total 310 2955.842 2399.594 Output Total 200 1325 945 Balance 110 -208.984 726.594 Weight 113.5 kg 105.9 kg Intake: IV 260 1110 510 Calcium Gluconate 2,000 100 mg In Sodium Chloride 0.9 % 100 ml @ 100 mls/hr IVPB ONCE ONE Rx#: [id number] Heparin Sodium,Porcine/ 80 320 D5w Pmx 25,000 unit In Dextrose/Water 1 500ml. bag @ 15 UNITS/KG/HR 32. 01 mls/hr IV .[id number] [facility] Rx#:[id number] Magnesium Sulfate-D5w Pmx 200 1 gm In Dextrose/Water 1 100ml.bag @ 100 mls/hr IVPB Q1H [facility] Rx#: [id number] Piperacillin-Tazobactam 3 50 50 .375 gm In Dextrose/Water 1 50ml.bag @ 12.5 mls/hr IVPB Q8HR [facility] Rx#: [id number] Sodium Chloride 0.9% 1, 180 740 160 000 ml @ 20 mls/hr IV . Q24H [facility] Rx#:[id number] Intake, IV Titration 50 6.016 571.594 Amount Heparin Sodium,Porcine/ 500 D5w Pmx 25,000 unit In Dextrose/Water 1 500ml. bag @ 15 UNITS/KG/HR 32. 01 mls/hr IV .[id number] [facility] Rx#:[id number] Norepinephrin 16 mg-0.9% 6.016 71.594 Ns Pmx 16 mg In 250 ml @ Titrate IV .Q0M [facility] Rx#: [id number] Piperacillin-Tazobactam 3 50 .375 gm In Dextrose/Water 1 50ml.bag @ 12.5 mls/hr IVPB Q8HR [facility] Rx#: [id number] Oral 110 Other 480 Output: Drainage 60 170 Left Lateral MEGHAN Drain 0 0 Medial MEGHAN Drain 60 150 Right Lateral MEGHAN Drain 0 20 Urine 200 1265 775 Other: Voiding Method Urinal Urinal Urinal - Exam Physical Exam: Revealed a 71-year-old white male, cachectic, pale looking, in mild form of respiratory distress. HEENT:[Neck ithroughout, nos supple.] [No neck masses.] [No thyromegaly.] [No JVD.] Chest: [Diminished breath sounds and crackles at the bases were noted. No rhonchi no wheezes.] Cardiac Exam: [Irregular irregular rhythm, dressing on sternal wound is noted, MEGHAN drains 2 were noted. Abdomen: [Soft, nontender, no megaly, no rebound, no guarding, normal bowel sounds.] Extremities: [No clubbing, 3+ bipedal edema, no cyanosis.] Neurological Exam: [No focal neurologic deficit.] - Labs CBC & Chem 7: 11/16/16 03:39 11/16/16 03:39 Labs: Abnormal Lab Results - Last 24 Hours (Table) 11/15/16 11/15/16 11/15/16 Range/Units 16:20 21:31 23:44 WBC (3.8-10.6) k/uL RBC (4.30-5.90) m/uL Hgb (13.0-17.5) gm/dL Hct (39.0-53.0) % MCH (25.0-35.0) pg MCHC (31.0-37.0) g/dL RDW (11.5-15.5) % Plt Count (150-450) k/uL Neutrophils # (1.3-7.7) k/uL PT (9.0-12.0) sec APTT (22.0-30.0) sec Sodium (137-145) mmol/L Chloride (98-107) mmol/L BUN (9-20) mg/dL Creatinine (0.66-1.25) mg/dL Glucose (74-99) mg/dL POC Glucose (mg/dL) 169 H 134 H 153 H (75-99) mg/dL Plasma Lactic Acid Samir (0.7-2.0) mmol/L Calcium (8.4-10.2) mg/dL Phosphorus (2.5-4.5) mg/dL Total Protein (6.3-8.2) g/dL Albumin (3.5-5.0) g/dL 11/15/16 11/15/16 11/15/16 Range/Units 23:51 23:51 23:51 WBC 20.3 H (3.8-10.6) k/uL RBC 3.07 L (4.30-5.90) m/uL Hgb 7.7 L (13.0-17.5) gm/dL Hct 27.0 L (39.0-53.0) % MCH (25.0-35.0) pg MCHC 28.7 L (31.0-37.0) g/dL RDW 17.8 H (11.5-15.5) % Plt Count 579 H (150-450) k/uL Neutrophils # 17.9 H (1.3-7.7) k/uL PT 13.3 H (9.0-12.0) sec APTT 49.3 H (22.0-30.0) sec Sodium 130 L (137-145) mmol/L Chloride 85 L (98-107) mmol/L BUN 61 H (9-20) mg/dL Creatinine 1.50 H (0.66-1.25) mg/dL Glucose 125 H (74-99) mg/dL POC Glucose (mg/dL) (75-99) mg/dL Plasma Lactic Acid Samir (0.7-2.0) mmol/L Calcium 5.8 L* (8.4-10.2) mg/dL Phosphorus (2.5-4.5) mg/dL Total Protein 6.1 L (6.3-8.2) g/dL Albumin 2.6 L (3.5-5.0) g/dL 11/15/16 11/15/16 11/16/16 Range/Units 23:51 23:57 03:39 WBC 20.3 H (3.8-10.6) k/uL RBC 3.26 L (4.30-5.90) m/uL Hgb 8.1 L (13.0-17.5) gm/dL Hct 27.7 L (39.0-53.0) % MCH 24.9 L (25.0-35.0) pg MCHC 29.3 L (31.0-37.0) g/dL RDW 18.2 H (11.5-15.5) % Plt Count 578 H (150-450) k/uL Neutrophils # 17.7 H (1.3-7.7) k/uL PT (9.0-12.0) sec APTT (22.0-30.0) sec Sodium (137-145) mmol/L Chloride (98-107) mmol/L BUN (9-20) mg/dL Creatinine (0.66-1.25) mg/dL Glucose (74-99) mg/dL POC Glucose (mg/dL) (75-99) mg/dL Plasma Lactic Acid Samir 4.2 H* (0.7-2.0) mmol/L Calcium (8.4-10.2) mg/dL Phosphorus 5.0 H (2.5-4.5) mg/dL Total Protein (6.3-8.2) g/dL Albumin (3.5-5.0) g/dL 11/16/16 11/16/16 11/16/16 Range/Units 03:39 03:39 03:39 WBC (3.8-10.6) k/uL RBC (4.30-5.90) m/uL Hgb (13.0-17.5) gm/dL Hct (39.0-53.0) % MCH (25.0-35.0) pg MCHC (31.0-37.0) g/dL RDW (11.5-15.5) % Plt Count (150-450) k/uL Neutrophils # (1.3-7.7) k/uL PT 13.4 H (9.0-12.0) sec APTT 48.4 H (22.0-30.0) sec Sodium 131 L (137-145) mmol/L Chloride 87 L (98-107) mmol/L BUN 62 H (9-20) mg/dL Creatinine 1.41 H (0.66-1.25) mg/dL Glucose 138 H (74-99) mg/dL POC Glucose (mg/dL) (75-99) mg/dL Plasma Lactic Acid Samir (0.7-2.0) mmol/L Calcium 5.8 L* (8.4-10.2) mg/dL Phosphorus 5.1 H (2.5-4.5) mg/dL Total Protein (6.3-8.2) g/dL Albumin (3.5-5.0) g/dL 11/16/16 Range/Units 13:37 WBC (3.8-10.6) k/uL RBC (4.30-5.90) m/uL Hgb (13.0-17.5) gm/dL Hct (39.0-53.0) % MCH (25.0-35.0) pg MCHC (31.0-37.0) g/dL RDW (11.5-15.5) % Plt Count (150-450) k/uL Neutrophils # (1.3-7.7) k/uL PT (9.0-12.0) sec APTT (22.0-30.0) sec Sodium (137-145) mmol/L Chloride (98-107) mmol/L BUN (9-20) mg/dL Creatinine (0.66-1.25) mg/dL Glucose (74-99) mg/dL POC Glucose (mg/dL) 157 H (75-99) mg/dL Plasma Lactic Acid Samir (0.7-2.0) mmol/L Calcium (8.4-10.2) mg/dL Phosphorus (2.5-4.5) mg/dL Total Protein (6.3-8.2) g/dL Albumin (3.5-5.0) g/dL Microbiology - Last 24 Hours (Table) 11/16/16 01:30 Urine Culture - Preliminary Urine,Catheterized 11/15/16 10:30 Gram Stain - Preliminary Pericardial Fluid Body Fluid Culture - Preliminary Assessment and Plan Plan: Impression: 1 acute on chronic congestive heart failure secondary to diastolic dysfunction and possibly some component of LV dysfunction based on the echocardiogram. 2 recent aortic valve replacement and mitral valve repair. 3 recent sternal wound dehiscence requiring pectoralis muscle flap. 4 history of coronary artery disease and previous CABG. 5 acute hypoxic respiratory failure secondary to congestive heart failure, and bilateral pleural effusions. 6 persistent atrial fibrillation with variable rate, patient remains on IV heparin. 7 history of pleural effusions requiring thoracentesis 2 on the right side. Whenever effusion his left seems to be a bit loculated, may or may not require further drainage. That will be left up to the thoracic surgeon on the case to decide. 8 moderate severe pulmonary hypertension. 9 history of chronic histoplasmosis. 10 history of degenerative joint disease. 11 history of GERD without esophagitis. 12 history of hypothyroidism. 13 history of coronary artery disease and previous CABG. Recommendation: Continue present treatment plan including diuretics, antibiotics , antimicrobial therapy as advised by infectious disease. Patient will be kept in the ICU today, and we will continue to follow. I discussed his condition with his at bedside. We'll continue to follow. Time with Patient: Less than 30
[2016-11-16 17:16] LABS: Glucose,Whole Blood 134 mg/dL (75-99)
--- NOTE | 2016-11-16 18:09 | PN ---
DATE OF SERVICE: 11/16/2016 PRESENTING COMPLAINT: Shortness of breath. INTERVAL HISTORY: This is a patient who presented with acute on chronic congestive heart failure exacerbation from diastolic dysfunction. Overnight patient began to have more tremoring, severe drop in blood pressure and developed had an elevated lactic acid. Therefore the patient was transferred back to the ICU overnight. Currently the patient is resting comfortably in bed right now. No acute distress noted. Patient states he feels "pretty good." No distress noted. Review of systems done for constitutional, cardiovascular, GI, pulmonary with relevant findings as above. CURRENT MEDICATIONS: 1. DuoNeb q.i.d. 2. Amiodarone 200 mg p.o. daily. 3. Aspirin 81 mg p.o. daily. 4. Lipitor 10 mg at bedtime. 5. Lasix 40 mg IV 8 hours. 6. Zaroxolyn 2.5 mg p.o. daily. 7. Lopressor 25 mg b.i.d. PHYSICAL EXAM: VITAL SIGNS: Temperature 96.0, pulse 113, respirations 27, blood pressure 117/62, oxygen saturation 95% on 6 liters high flow nasal cannula. GENERAL APPEARANCE: Patient appears relaxed, all smiles. No complaints of any pain. EYES: Pupils equal. Conjunctivae normal. NECK: JVD unable to assess. Mass not palpable. RESPIRATORY: Effort increased. LUNGS: Crackles to the bases bilaterally. CARDIOVASCULAR: Heart sounds are regular. Edema present. ABDOMEN: Pleural drains in place. PSYCHIATRY: Alert and oriented x3. Mood and affect are mildly anxious. INVESTIGATIONS: White blood cell count 20.3, hemoglobin 8.1, platelet count 578, INR 1.4. Sodium 131, potassium 3.5. Chest x-ray stable to minimally worsened CHF and pulmonary vascular congestion interstitial edema. Small to moderate pleural effusion with adjacent atelectasis and/or consolidation. ASSESSMENT: 1. Acute on chronic congestive heart failure exacerbation from diastolic dysfunction, ejection fraction 55% to 60%, slow to improve. 2. Aortic valve replacement and moderate mitral valve repair. 3. Sternal wound dehiscence with pectoralis flap in place, slow to respond. 4. Coronary artery disease with prior coronary artery bypass. 5. Acute hypoxic respiratory failure, on high flow nasal cannula, slow to respond. 6. Persistent atrial fibrillation very low rate, on IV heparin. 7. Chronic histoplasmosis, status post biopsy. 8. Status post pleural effusion that was tapped. 9. Hypercholesterolemia. 10. Hypothyroidism. 11. Obesity. 12. Primary osteoarthritis of multiple joints bilaterally. 13. Moderate secondary pulmonary hypertension. 14. Gastroesophageal reflux disease. 15. CODE STATUS: FULL. Cardiothoracic surgery, Pulmonology continue to follow this patient as well as ID. We will continue current medication and treatment plan per other discipline recommendations. Will continue to follow. Patient was seen and examined by nurse practitioner, Karyna Murray, and all elements of the case were discussed with attending, Dr. Dillon.
[2016-11-16 21:03] LABS: Glucose,Whole Blood 176 mg/dL (75-99)
[2016-11-16] MEDS: WARFARIN 5 MG TAB PO SCH (21:28)
[2016-11-16] MEDS: HYDROcodone/APAP 10-325MG 1 EACH TAB PO PRN (21:30)
--- NOTE | 2016-11-16 22:02 | PN ---
DATE OF SERVICE: 11/16/2016 ATTENDING NOTE: This patient was seen and examined by me earlier today. I reviewed the note of my nurse practitioner, Ms. Murray, and discussed and agreed with the same. The patient was transferred last night to the ICU because patient had dropped blood pressure. Lactic acid had gone up a bit, 50 mL of fluid bolus. Patient is tolerating diet, remains to be in atrial fibrillation. On examination, blood pressure 107/62, pulse ox 95% on 6L. LUNGS: Decreased breath sounds. CARDIOVASCULAR: Sounds irregular. Some edema is present. ASSESSMENT: 1. Acute on chronic congestive heart failure exacerbation from diastolic dysfunction. 2. Hypotension, multifactorial. 3. Persistent atrial fibrillation on IV heparin. PLAN: Continue current medication and treatment plan. Patient also on antibiotics. Patient's cultures are pending from the [facility]. Prognosis guarded.
--- NOTE | 2016-11-16 22:14 | P.PN ---
Subjective Principal diagnosis: respiratory failure This is a 71-year-old male well known to ID service who came in the hospital on September 23 and underwent a JAYDE and heart catheterization showing a ruptured chordae tendonae, mitral regurgitation, moderate pulmonary hypertension , with history of paroxysmal atrial fibrillation and heart failure. 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 With this the patient was initiated to itraconazole. He however developed atrial fibrillation. Because of this he was initiated to amiodarone. The dose of itraconazole was reduced by 50%. There is no evidence of alteration of the QT interval while he was in hospital. He eventually was discharged home. It is related that he was not able to obtain the itraconazole. In this is going to be addressed in the coming days. However he returned to [facility] emergency center due to shortness of breath and was hospitalized October 06 through October 30 at which time he required intubation and mechanical ventilation. He was successfully extubated. He was treated for dehiscence of sternal wires requiring sternal exploration, debridement and wound closure with bilateral pectoralis major myocutaneous advanced flaps. He also required chest tube placement for left pleural effusion and right thoracentesis for right pleural effusion with drainage of 1.5 L of dark red tinged fluid. Muscle flap procedure was done on October 15. Patient was stabilized and then transferred to [facility] for inpatient rehab under the care of Dr. Christina. He developed increasing shortness of breath and edema and was eventually transferred to the intensive care unit where he was found to be in atrial fibrillation with rapid ventricular response and acute systolic heart failure and underwent thoracentesis with removal of 1.6 L on the right chest. Patient was treated in the intensive care unit until a bed was available at [facility] he was a direct transfer. Chest x-ray here shows developing pleural fluid collection along lateral right chest wall. Consults are in place with Dr. Gaffney, cardiovascular surgeon and cardiology. Patient has [address] with one showing some purulence for which a culture to be sent today. Patient has had some mild confusion since admission. He did receive extra dose of Lasix this morning. He has been afebrile. Patient is on heparin drip and amiodarone is oral. For antibiotics, patient is on Zosyn. Echocardiogram reveals EF 40-45%, normally functioning bioprosthetic valve, trace mitral regurgitation, mild tricuspid regurgitation. Sputum culture during his hospitalization of October 06 was positive for Haemophilus influenza and Serratia marcescens susceptible to Zosyn. Last night status worsened and was transferred to the ICU,now improved. Less short of breath, improved heart rate and mentation. Objective - Vital Signs Vital signs: Vital Signs Temp 96.0 F L 11/16/16 12:00 Pulse 127 H 11/16/16 19:51 Resp 24 11/16/16 19:00 BP 96/65 11/16/16 19:00 Pulse Ox 90 L 11/16/16 19:00 Intake & Output 11/16/16 11/16/16 11/17/16 06:59 18:59 06:59 Intake Total 4470.589 9865.594 20 Output Total 1325 1285 60 Balance -208.984 466.594 -40 Weight 113.5 kg 105.9 kg Intake: IV 1110 590 20 Calcium Gluconate 2,000 100 mg In Sodium Chloride 0.9 % 100 ml @ 100 mls/hr IVPB ONCE ONE Rx#: [id number] Heparin Sodium,Porcine/ 320 D5w Pmx 25,000 unit In Dextrose/Water 1 500ml. bag @ 15 UNITS/KG/HR 32. 01 mls/hr IV .[id number] [facility] Rx#:[id number] Magnesium Sulfate-D5w Pmx 200 1 gm In Dextrose/Water 1 100ml.bag @ 100 mls/hr IVPB Q1H [facility] Rx#: [id number] Piperacillin-Tazobactam 3 50 50 .375 gm In Dextrose/Water 1 50ml.bag @ 12.5 mls/hr IVPB Q8HR [facility] Rx#: [id number] Sodium Chloride 0.9% 1, 740 240 20 000 ml @ 20 mls/hr IV . Q24H [facility] Rx#:[id number] Intake, IV Titration 6.016 571.594 Amount Heparin Sodium,Porcine/ 500 D5w Pmx 25,000 unit In Dextrose/Water 1 500ml. bag @ 15 UNITS/KG/HR 32. 01 mls/hr IV .[id number] [facility] Rx#:[id number] Norepinephrin 16 mg-0.9% 6.016 71.594 Ns Pmx 16 mg In 250 ml @ Titrate IV .Q0M [facility] Rx#: [id number] Oral 110 Other 480 Output: Drainage 60 170 Left Lateral MEGHAN Drain 0 0 Medial MEGHAN Drain 60 150 Right Lateral MEGHAN Drain 0 20 Urine 1265 1115 60 Other: Voiding Method Urinal Urinal - Exam This is a 71-year-old male. He appears comfortable lying in ICU bed. He does arouse to verbal stimuli and is able to follow simple commands and answer questions. Cardiac monitors atrial fibrillation with rapid ventricular response. HEENT: Head is atraumatic, normocephalic. Pupils equal, round. Sclerae is anicteric. Conjunctiva slightly pale. Mucous membranes of the mouth are dry. No thrush noted. NECK: Supple. No JVD. No lymphadenopathy. No thyromegaly. LUNGS: There are bibasal crackles. No significant bronchial sounds. MEGHAN drain to the right chest shows serous drainage small amount. MEGHAN drain to the midsternal area show serosanguineous with some yellow exudate. Left lateral MEGHAN drain with serous drainage. HEART: Irregular with no murmur Dressing on sternal wound and place. ABDOMEN: Distinctly distended. Bowel sounds are normal. Organomegaly is not detected. Abdomen is nontender. EXTREMITIES: +3 bilateral pedal edema. SCDs in place. NEUROLOGICAL: Awake and alert. Able to follow simple commands and answer questions. - Labs CBC & Chem 7: 11/16/16 03:39 11/16/16 03:39 Labs: Abnormal Lab Results - Last 24 Hours (Table) 11/15/16 11/15/16 11/15/16 Range/Units 23:44 23:51 23:51 WBC 20.3 H (3.8-10.6) k/uL RBC 3.07 L (4.30-5.90) m/uL Hgb 7.7 L (13.0-17.5) gm/dL Hct 27.0 L (39.0-53.0) % MCH (25.0-35.0) pg MCHC 28.7 L (31.0-37.0) g/dL RDW 17.8 H (11.5-15.5) % Plt Count 579 H (150-450) k/uL Neutrophils # 17.9 H (1.3-7.7) k/uL PT (9.0-12.0) sec APTT (22.0-30.0) sec Sodium 130 L (137-145) mmol/L Chloride 85 L (98-107) mmol/L BUN 61 H (9-20) mg/dL Creatinine 1.50 H (0.66-1.25) mg/dL Glucose 125 H (74-99) mg/dL POC Glucose (mg/dL) 153 H (75-99) mg/dL Plasma Lactic Acid Samir (0.7-2.0) mmol/L Calcium 5.8 L* (8.4-10.2) mg/dL Phosphorus (2.5-4.5) mg/dL Total Protein 6.1 L (6.3-8.2) g/dL Albumin 2.6 L (3.5-5.0) g/dL 11/15/16 11/15/16 11/15/16 Range/Units 23:51 23:51 23:57 WBC (3.8-10.6) k/uL RBC (4.30-5.90) m/uL Hgb (13.0-17.5) gm/dL Hct (39.0-53.0) % MCH (25.0-35.0) pg MCHC (31.0-37.0) g/dL RDW (11.5-15.5) % Plt Count (150-450) k/uL Neutrophils # (1.3-7.7) k/uL PT 13.3 H (9.0-12.0) sec APTT 49.3 H (22.0-30.0) sec Sodium (137-145) mmol/L Chloride (98-107) mmol/L BUN (9-20) mg/dL Creatinine (0.66-1.25) mg/dL Glucose (74-99) mg/dL POC Glucose (mg/dL) (75-99) mg/dL Plasma Lactic Acid Samir 4.2 H* (0.7-2.0) mmol/L Calcium (8.4-10.2) mg/dL Phosphorus 5.0 H (2.5-4.5) mg/dL Total Protein (6.3-8.2) g/dL Albumin (3.5-5.0) g/dL 11/16/16 11/16/16 11/16/16 Range/Units 03:39 03:39 03:39 WBC 20.3 H (3.8-10.6) k/uL RBC 3.26 L (4.30-5.90) m/uL Hgb 8.1 L (13.0-17.5) gm/dL Hct 27.7 L (39.0-53.0) % MCH 24.9 L (25.0-35.0) pg MCHC 29.3 L (31.0-37.0) g/dL RDW 18.2 H (11.5-15.5) % Plt Count 578 H (150-450) k/uL Neutrophils # 17.7 H (1.3-7.7) k/uL PT (9.0-12.0) sec APTT 48.4 H (22.0-30.0) sec Sodium 131 L (137-145) mmol/L Chloride 87 L (98-107) mmol/L BUN 62 H (9-20) mg/dL Creatinine 1.41 H (0.66-1.25) mg/dL Glucose 138 H (74-99) mg/dL POC Glucose (mg/dL) (75-99) mg/dL Plasma Lactic Acid Samir (0.7-2.0) mmol/L Calcium 5.8 L* (8.4-10.2) mg/dL Phosphorus 5.1 H (2.5-4.5) mg/dL Total Protein (6.3-8.2) g/dL Albumin (3.5-5.0) g/dL 11/16/16 11/16/16 11/16/16 Range/Units 03:39 13:37 17:15 WBC (3.8-10.6) k/uL RBC (4.30-5.90) m/uL Hgb (13.0-17.5) gm/dL Hct (39.0-53.0) % MCH (25.0-35.0) pg MCHC (31.0-37.0) g/dL RDW (11.5-15.5) % Plt Count (150-450) k/uL Neutrophils # (1.3-7.7) k/uL PT 13.4 H (9.0-12.0) sec APTT (22.0-30.0) sec Sodium (137-145) mmol/L Chloride (98-107) mmol/L BUN (9-20) mg/dL Creatinine (0.66-1.25) mg/dL Glucose (74-99) mg/dL POC Glucose (mg/dL) 157 H 134 H (75-99) mg/dL Plasma Lactic Acid Samir (0.7-2.0) mmol/L Calcium (8.4-10.2) mg/dL Phosphorus (2.5-4.5) mg/dL Total Protein (6.3-8.2) g/dL Albumin (3.5-5.0) g/dL 11/16/16 Range/Units 21:02 WBC (3.8-10.6) k/uL RBC (4.30-5.90) m/uL Hgb (13.0-17.5) gm/dL Hct (39.0-53.0) % MCH (25.0-35.0) pg MCHC (31.0-37.0) g/dL RDW (11.5-15.5) % Plt Count (150-450) k/uL Neutrophils # (1.3-7.7) k/uL PT (9.0-12.0) sec APTT (22.0-30.0) sec Sodium (137-145) mmol/L Chloride (98-107) mmol/L BUN (9-20) mg/dL Creatinine (0.66-1.25) mg/dL Glucose (74-99) mg/dL POC Glucose (mg/dL) 176 H (75-99) mg/dL Plasma Lactic Acid Samir (0.7-2.0) mmol/L Calcium (8.4-10.2) mg/dL Phosphorus (2.5-4.5) mg/dL Total Protein (6.3-8.2) g/dL Albumin (3.5-5.0) g/dL Microbiology - Last 24 Hours (Table) 11/16/16 01:30 Urine Culture - Preliminary Urine,Catheterized 11/15/16 10:30 Gram Stain - Preliminary Pericardial Fluid Body Fluid Culture - Preliminary Laboratory Results WBC 20.3 k/uL (3.8-10.6) H 11/16/16 03:39 RBC 3.26 m/uL (4.30-5.90) L 11/16/16 03:39 Hgb 8.1 gm/dL (13.0-17.5) L 11/16/16 03:39 Hct 27.7 % (39.0-53.0) L 11/16/16 03:39 MCV 85.0 fL (80.0-100.0) 11/16/16 03:39 MCH 24.9 pg (25.0-35.0) L 11/16/16 03:39 MCHC 29.3 g/dL (31.0-37.0) L 11/16/16 03:39 RDW 18.2 % (11.5-15.5) H 11/16/16 03:39 Plt Count 578 k/uL (150-450) H 11/16/16 03:39 Neutrophils % 87 % 11/16/16 03:39 Neutrophils % (Manual) 86.0 % 11/15/16 04:18 Band Neutrophils % 1.0 % 11/15/16 04:18 Lymphocytes % 6 % 11/16/16 03:39 Lymphocytes % (Manual) 6.0 % 11/15/16 04:18 Monocytes % 4 % 11/16/16 03:39 Monocytes % (Manual) 7.0 % 11/15/16 04:18 Eosinophils % 0 % 11/16/16 03:39 Basophils % 0 % 11/16/16 03:39 Neutrophils # 17.7 k/uL (1.3-7.7) H 11/16/16 03:39 Neutrophils # (Manual) 12.9 k/uL (1.3-7.7) H 11/15/16 04:18 Lymphocytes # 1.2 k/uL (1.0-4.8) 11/16/16 03:39 Lymphocytes # (Manual) 0.9 k/uL (1.0-4.8) L 11/15/16 04:18 Monocytes # 0.9 k/uL (0-1.0) 11/16/16 03:39 Monocytes # (Manual) 1.0 k/uL (0-1.0) 11/15/16 04:18 Eosinophils # 0.1 k/uL (0-0.7) 11/16/16 03:39 Basophils # 0.1 k/uL (0-0.2) 11/16/16 03:39 Nucleated RBCs 1 /100 WBC (0-0) H 11/15/16 04:18 Manual Slide Review Performed 11/15/16 04:18 Polychromasia Present 11/15/16 04:18 Hypochromasia Marked 11/16/16 03:39 Hypochromasia (manual) Pres 11/15/16 04:18 Poikilocytosis Moderate 11/16/16 03:39 Anisocytosis Slight 11/16/16 03:39 Anisocytosis (manual) Present 11/15/16 04:18 Spherocytes Present 11/15/16 04:18 PT 13.4 sec (9.0-12.0) H 11/16/16 03:39 INR 1.4 (<1.1) 11/16/16 03:39 APTT 48.4 sec (22.0-30.0) H 11/16/16 03:39 Sodium 131 mmol/L (137-145) L 11/16/16 03:39 Potassium 3.5 mmol/L (3.5-5.1) 11/16/16 03:39 Chloride 87 mmol/L (98-107) L 11/16/16 03:39 Carbon Dioxide 30 mmol/L (22-30) 11/16/16 03:39 Anion Gap 14 mmol/L 11/16/16 03:39 BUN 62 mg/dL (9-20) H 11/16/16 03:39 Creatinine 1.41 mg/dL (0.66-1.25) H 11/16/16 03:39 Est GFR (MDRD) Af Amer 60 (>60 ml/min/1.73 sqM) 11/16/16 03:39 Est GFR (MDRD) Non-Af 49 (>60 ml/min/1.73 sqM) 11/16/16 03:39 Glucose 138 mg/dL (74-99) H 11/16/16 03:39 POC Glucose (mg/dL) 176 mg/dL (75-99) H 11/16/16 21:02 POC Glu [employer] Super[employer] ID Christine Diop 11/16/16 21:[address] Glu mg/dL 103 mg/dL 11/13/16 21:54 Hemoglobin A1c 5.2 % (4.2-6.1) 11/13/16 21:54 Plasma Lactic Acid Samir 1.7 mmol/L (0.7-2.0) 11/16/16 03:39 Calcium 5.8 mg/dL (8.4-10.2) L* 11/16/16 03:39 Phosphorus 5.1 mg/dL (2.5-4.5) H 11/16/16 03:39 Magnesium 1.8 mg/dL (1.6-2.3) 11/16/16 03:39 Total Bilirubin 1.0 mg/dL (0.2-1.3) 11/15/16 23:51 AST 25 U/L (17-59) 11/15/16 23:51 ALT 38 U/L (21-72) 11/15/16 23:51 Alkaline Phosphatase 88 U/L (38-126) 11/15/16 23:51 Total Protein 6.1 g/dL (6.3-8.2) L 11/15/16 23:51 Albumin 2.6 g/dL (3.5-5.0) L 11/15/16 23:51 Free T4 1.58 ng/dL (0.78-2.19) 11/15/16 04:18 Thyroid Stim Immunoglob <0.10 IU/L (<0.10) 11/15/16 04:18 Urine Color Yellow 11/16/16 01:30 Urine Appearance Clear (Clear) 11/16/16 01:30 Urine pH 6.0 (5.0-8.0) 11/16/16 01:30 Ur Specific [place] 1.009 (1.001-1.035) 11/16/16 01:30 Urine Protein Negative (Negative) 11/16/16 01:30 Urine Glucose (UA) Negative (Negative) 11/16/16 01:30 Urine Ketones Negative (Negative) 11/16/16 01:30 Urine Blood Negative (Negative) 11/16/16 01:30 Urine Nitrite Negative (Negative) 11/16/16 01:30 Urine Bilirubin Negative (Negative) 11/16/16 01:30 Urine Urobilinogen <2.0 mg/dL (<2.0) 11/16/16 01:30 Ur Leukocyte Esterase Negative (Negative) 11/16/16 01:30 Microbiology 11/16/16 01:30 Urine,Catheterized Urine Culture - Preliminary 11/15/16 10:30 Pericardial Fluid Gram Stain - Preliminary 11/15/16 10:30 Pericardial Fluid Body Fluid Culture - Preliminary Assessment and Plan (1) Acute respiratory failure Narrative/Plan: He has not the patient decompensated last evening. He became more tachypneic and tachycardic and her relative hypotension. Also mild increase of his lactic acid. This is almost resolved. He was transferred to the intensive care unit is feeling better. His speech is getting stronger. Was able to self feed his entire dinner without difficulties later in the day. And has no other new acute complaints. Continue supportive care. Current thoracic is following with no plans for any surgical intervention. The patient's MEGHAN drain was cultures were await further culture data. Currently receiving some Zosyn therapy while were waiting for cultures. We'll try to taper antibiotics quickly. Status: Acute
[2016-11-16] MEDS: SODIUM CHLORIDE 0.9% 1,000 ML IV SCH (22:25)
[2016-11-16] MEDS: ATORVASTATIN 10 MG TAB PO SCH (22:26)
[2016-11-17] MEDS: PIPERACILLIN-TAZOBACTAM 3.375 GM in DEXTROSE/WATER 1 50ML.BAG IVPB SCH ×3 (00:59→16:53)
[2016-11-17] MEDS: HYDROcodone/APAP 10-325MG 1 EACH TAB PO PRN ×3 (00:59→21:18)
[2016-11-17 04:47] LABS: Anisocytosis Slight; Basophils % (A) 0 %; CH 25.1; CHCM 29.2; Eosinophils # (A) 0.1 k/uL (0-0.7); Eosinophils % (A) 1 %; HCT 24.7 % (39.0-53.0); HDW 4.16; HGB 7.1 gm/dL (13.0-17.5); Hypochromasia Marked; Luc # (Auto) 0.18; Luc % (Auto) 1; Lymphocytes # (A) 0.9 k/uL (1.0-4.8); Lymphocytes % (A) 6 %; MCH 24.5 pg (25.0-35.0); MCHC 28.7 g/dL (31.0-37.0); MCV 85.4 fL (80.0-100.0); Monocytes # (A) 0.6 k/uL (0-1.0); Monocytes % (A) 4 %; Neutrophils # (A) 13.2 k/uL (1.3-7.7); Neutrophils % (A) 88 %; Poikilocytosis Moderate; RBC 2.89 m/uL (4.30-5.90); RDW 18.1 % (11.5-15.5); WBC (Perox) 15.36
[2016-11-17 04:51] LABS: INR 1.4 (<1.1); Prothrombin Time 13.5 sec (9.0-12.0)
[2016-11-17 05:01] LABS: Anion Gap 11 mmol/L; Blood Urea Nitrogen 53 mg/dL (9-20); Carbon Dioxide 33 mmol/L (22-30); Chloride 89 mmol/L (98-107); Glucose 107 mg/dL (74-99); Magnesium 2.3 mg/dL (1.6-2.3); Non-African American GFR(MDRD) >60 (>60 ml/min/1.73 sqM); Phosphorous 3.9 mg/dL (2.5-4.5); Potassium 3.1 mmol/L (3.5-5.1); Sodium 133 mmol/L (137-145)
[2016-11-17 05:10] LABS: Calcium 5.8 mg/dL (8.4-10.2)
[2016-11-17] MEDS ORDERED: Potassium Replacement Protocol 1 EACH MISC MISCELLANE PRN ×2 (05:50→15:53)
[2016-11-17] MEDS ORDERED: CALCIUM GLUCONATE 2,000 MG in SODIUM CHLORIDE 0.9% 100 ML IVPB ONE (07:00)
--- NOTE | 2016-11-17 07:14 | XR ---
EXAMINATION TYPE: XR chest 1V portable DATE OF EXAM: 11/17/2016 7:05 AM HISTORY: pleural effusion. REFERENCE: Previous study dated 11/16/2016. FINDINGS: There is worsening left basilar airspace disease. There are bilateral effusions. The heart is enlarged. IMPRESSION: WORSENING LEFT BASILAR AIRSPACE DISEASE.
[2016-11-17] MEDS: IPRATROPIUM-ALBUTEROL 3 ML NEB INHALATION SCH ×4 (07:48→20:39)
[2016-11-17] MEDS: PANTOPRAZOLE 40 MG TABLET PO SCH (08:29)
[2016-11-17] MEDS: LEVOTHYROXINE 75 MCG TAB PO SCH (08:32)
[2016-11-17 08:42] LABS: Glucose,Whole Blood 137 mg/dL (75-99)
[2016-11-17] MEDS: ASPIRIN 81 MG CHEW PO SCH (08:46)
[2016-11-17] MEDS: AMIODARONE 200 MG TAB PO SCH (08:46)
[2016-11-17] MEDS: METOLAZONE 2.5 MG TAB PO SCH (08:47)
[2016-11-17] MEDS: METOPROLOL TARTRATE 25 MG TAB PO SCH ×3 (08:47→21:17)
[2016-11-17] MEDS: INSULIN LISPRO (humaLOG) 300 UNIT/3 ML VIAL SQ SCH ×4 (08:47→21:17)
--- NOTE | 2016-11-17 09:42 | P.PN ---
<Charisse Croft - Last Filed: 11/17/16 09:32> Subjective Principal diagnosis: POD #52 aortic valve replacement, mitral valve repair, mediastinal lymph node biopsy. POD #34 muscle flap closure after sternal wound dehiscence. currently sitting up in bed in no apparent distress. Currently off levo. Still in A. fib but better controlled. Objective - Vital Signs Vital signs: Vital Signs Temp 97.8 F 11/17/16 08:00 Pulse 123 H 11/17/16 08:00 Resp 19 11/17/16 08:00 BP 80/64 11/17/16 08:00 Pulse Ox 95 11/17/16 08:00 Intake & Output 11/16/16 11/17/16 11/17/16 18:59 06:59 18:59 Intake Total 1751.594 720.13 84.8 Output Total 1285 630 200 Balance 466.594 90.13 -115.2 Weight 105.9 kg 106.3 kg Intake: IV 590 290 84.8 Calcium Gluconate 2,000 100 mg In Sodium Chloride 0.9 % 100 ml @ 100 mls/hr IVPB ONCE ONE Rx#: [id number] Heparin Sodium,Porcine/ 44.8 D5w Pmx 25,000 unit In Dextrose/Water 1 500ml. bag @ 15 UNITS/KG/HR 32. 01 mls/hr IV .[id number] [facility] Rx#:[id number] Magnesium Sulfate-D5w Pmx 200 1 gm In Dextrose/Water 1 100ml.bag @ 100 mls/hr IVPB Q1H [facility] Rx#: [id number] Piperacillin-Tazobactam 3 50 50 .375 gm In Dextrose/Water 1 50ml.bag @ 12.5 mls/hr IVPB Q8HR [facility] Rx#: [id number] Sodium Chloride 0.9% 1, 240 240 40 000 ml @ 20 mls/hr IV . Q24H [facility] Rx#:[id number] Intake, IV Titration 571.594 430.13 Amount Heparin Sodium,Porcine/ 500 410.13 D5w Pmx 25,000 unit In Dextrose/Water 1 500ml. bag @ 15 UNITS/KG/HR 32. 01 mls/hr IV .[id number] [facility] Rx#:[id number] Norepinephrin 16 mg-0.9% 71.594 Ns Pmx 16 mg In 250 ml @ Titrate IV .Q0M [facility] Rx#: [id number] Sodium Chloride 0.9% 1, 20 000 ml @ 20 mls/hr IV . Q24H [facility] Rx#:[id number] Oral 110 Other 480 Output: Drainage 170 Left Lateral MEGHAN Drain 0 Medial MEGHAN Drain 150 Right Lateral MEGHAN Drain 20 Urine 1115 630 200 Other: Voiding Method Urinal Urinal - Constitutional General appearance: Present: cooperative, no acute distress, obese - Respiratory Details: Lungs sounds diminished bilaterally. Respirations even, nonlabored. Currently on 6 L nasal cannula with oxygen saturation 93%. Only able to achieve 500 mL on incentive spirometer this morning. Left, right, middle MEGHAN drains without documented drainage since yesterday. - Cardiovascular Details: S1, S2 present. Irregular, tachycardia rate and rhythm, A. fib on telemetry with heart rate in the high 90s to low 100s. Bilateral lower extremity edema present. Heart hugger in place. Teds/SCDs off patient this morning, instructed RN to please replace. - Gastrointestinal Gastrointestinal Comment(s): Abdomen soft, nontender, nondistended. Active bowel sounds 4 quadrants. Tolerating diet. - Genitourinary Genitourinary Comment(s): Duong present draining clear, yellow urine. Output 45-60 mL/h overnight. - Integumentary Integumentary Comment(s): Anterior chest incision well approximated with intact yoli. No drainage, redness noted. - Musculoskeletal Musculoskeletal: Present: generalized weakness - Psychiatric Psychiatric: Present: A&O x's 3 - Allied health notes Allied health notes reviewed: nursing - Labs CBC & Chem 7: 11/17/16 04:17 11/17/16 04:17 Labs: Abnormal Lab Results - Last 24 Hours (Table) 11/16/16 11/16/16 11/16/16 Range/Units 13:37 17:15 21:02 WBC (3.8-10.6) k/uL RBC (4.30-5.90) m/uL Hgb (13.0-17.5) gm/dL Hct (39.0-53.0) % MCH (25.0-35.0) pg MCHC (31.0-37.0) g/dL RDW (11.5-15.5) % Plt Count (150-450) k/uL Neutrophils # (1.3-7.7) k/uL Lymphocytes # (1.0-4.8) k/uL PT (9.0-12.0) sec APTT (22.0-30.0) sec Sodium (137-145) mmol/L Potassium (3.5-5.1) mmol/L Chloride (98-107) mmol/L Carbon Dioxide (22-30) mmol/L BUN (9-20) mg/dL Glucose (74-99) mg/dL POC Glucose (mg/dL) 157 H 134 H 176 H (75-99) mg/dL Calcium (8.4-10.2) mg/dL 11/17/16 11/17/16 11/17/16 Range/Units 04: 04:17 04:17 WBC 15.0 H (3.8-10.6) k/uL RBC 2.89 L (4.30-5.90) m/uL Hgb 7.1 L (13.0-17.5) gm/dL Hct 24.7 L (39.0-53.0) % MCH 24.5 L (25.0-35.0) pg MCHC 28.7 L (31.0-37.0) g/dL RDW 18.1 H (11.5-15.5) % Plt Count 485 H (150-450) k/uL Neutrophils # 13.2 H (1.3-7.7) k/uL Lymphocytes # 0.9 L (1.0-4.8) k/uL PT 13.5 H (9.0-12.0) sec APTT (22.0-30.0) sec Sodium 133 L (137-145) mmol/L Potassium 3.1 L (3.5-5.1) mmol/L Chloride 89 L (98-107) mmol/L Carbon Dioxide 33 H (22-30) mmol/L BUN 53 H (9-20) mg/dL Glucose 107 H (74-99) mg/dL POC Glucose (mg/dL) (75-99) mg/dL Calcium 5.8 L* (8.4-10.2) mg/dL 11/17/16 11/17/16 Range/Units 04:17 08:41 WBC (3.8-10.6) k/uL RBC (4.30-5.90) m/uL Hgb (13.0-17.5) gm/dL Hct (39.0-53.0) % MCH (25.0-35.0) pg MCHC (31.0-37.0) g/dL RDW (11.5-15.5) % Plt Count (150-450) k/uL Neutrophils # (1.3-7.7) k/uL Lymphocytes # (1.0-4.8) k/uL PT (9.0-12.0) sec APTT 40.0 H (22.0-30.0) sec Sodium (137-145) mmol/L Potassium (3.5-5.1) mmol/L Chloride (98-107) mmol/L Carbon Dioxide (22-30) mmol/L BUN (9-20) mg/dL Glucose (74-99) mg/dL POC Glucose (mg/dL) 137 H (75-99) mg/dL Calcium (8.4-10.2) mg/dL Microbiology - Last 24 Hours (Table) 11/16/16 01:30 Urine Culture - Preliminary Urine,Catheterized 11/15/16 10:30 Gram Stain - Preliminary Pericardial Fluid Body Fluid Culture - Preliminary - Imaging and Cardiology Chest x-ray: image reviewed Assessment and Plan (1) Congestive heart failure Status: Acute (2) Hypercholesterolemia Status: Acute (3) Hypertension Status: Acute (4) Hypothyroidism (acquired) Status: Acute (5) Obesity Status: Acute (6) Paroxysmal a-fib Status: Acute (7) Status post aortic valve replacement Status: Acute (8) Status post mitral valve repair Status: Acute Plan: 1. Continue aspirin, amiodarone, Lopressor. 2. Will re-add Lasix, Zaroxolyn per pulmonology. Will get ultrasound of the chest for possible thoracentesis per pulmonology. 3. Body fluid culture from MEGHAN drains sent, pending. Will follow culture results. Antibiotics per pulmonology. 4. Wean O2 as tolerated. Encourage incentive spirometry use. 5. Medical comorbidities to be managed by internal medicine. 6. Encourage increased activity. Physical therapy to follow 7. No indication for cardiothoracic surgical intervention at this time. 8. Will continue to monitor, recommendations based on patient's progress. Time with Patient: Greater than 30 <Habib,Brant - Last Filed: 11/17/16 18:08> Objective - Vital Signs Vital signs: Vital Signs Temp 97.8 F 11/17/16 08:00 Pulse 105 H 11/17/16 17:11 Resp 21 11/17/16 17:00 BP 91/61 11/17/16 17:00 Pulse Ox 94 L 11/17/16 16:00 Intake & Output 11/16/16 11/17/16 11/17/16 18:59 06:59 18:59 Intake Total 1751.594 720.13 589.12 Output Total 8243 390 8955 Balance 466.594 90.13 -960.88 Weight 105.9 kg 106.3 kg Intake: IV 590 290 589.12 Calcium Gluconate 2,000 100 mg In Sodium Chloride 0.9 % 100 ml @ 100 mls/hr IVPB ONCE ONE Rx#: [id number] Heparin Sodium,Porcine/ 369.12 D5w Pmx 25,000 unit In Dextrose/Water 1 500ml. bag @ 15 UNITS/KG/HR 32. 01 mls/hr IV .[id number] [facility] Rx#:[id number] Magnesium Sulfate-D5w Pmx 200 1 gm In Dextrose/Water 1 100ml.bag @ 100 mls/hr IVPB Q1H [facility] Rx#: [id number] Piperacillin-Tazobactam 3 50 50 .375 gm In Dextrose/Water 1 50ml.bag @ 12.5 mls/hr IVPB Q8HR [facility] Rx#: [id number] Sodium Chloride 0.9% 1, 240 240 220 000 ml @ 20 mls/hr IV . Q24H [facility] Rx#:[id number] Intake, IV Titration 571.594 430.13 Amount Heparin Sodium,Porcine/ 500 410.13 D5w Pmx 25,000 unit In Dextrose/Water 1 500ml. bag @ 15 UNITS/KG/HR 32. 01 mls/hr IV .[id number] [facility] Rx#:[id number] Norepinephrin 16 mg-0.9% 71.594 Ns Pmx 16 mg In 250 ml @ Titrate IV .Q0M [facility] Rx#: [id number] Sodium Chloride 0.9% 1, 20 000 ml @ 20 mls/hr IV . Q24H STEVAN Rx#:[id number] Oral 110 Other 480 Output: Drainage 170 Left Lateral MEGHAN Drain 0 Medial MEGHAN Drain 150 Right Lateral MEGHAN Drain 20 Urine [id number] Other: Voiding Method Urinal Urinal Urinal - Labs CBC & Chem 7: 11/17/16 04:17 11/17/16 15:01 Labs: Abnormal Lab Results - Last 24 Hours (Table) 11/16/16 11/17/16 11/17/16 Range/Units 21:02 04: 04:17 WBC 15.0 H (3.8-10.6) k/uL RBC 2.89 L (4.30-5.90) m/uL Hgb 7.1 L (13.0-17.5) gm/dL Hct 24.7 L (39.0-53.0) % MCH 24.5 L (25.0-35.0) pg MCHC 28.7 L (31.0-37.0) g/dL RDW 18.1 H (11.5-15.5) % Plt Count 485 H (150-450) k/uL Neutrophils # 13.2 H (1.3-7.7) k/uL Lymphocytes # 0.9 L (1.0-4.8) k/uL PT (9.0-12.0) sec APTT (22.0-30.0) sec Sodium 133 L (137-145) mmol/L Potassium 3.1 L (3.5-5.1) mmol/L Chloride 89 L (98-107) mmol/L Carbon Dioxide 33 H (22-30) mmol/L BUN 53 H (9-20) mg/dL Glucose 107 H (74-99) mg/dL POC Glucose (mg/dL) 176 H (75-99) mg/dL Calcium 5.8 L* (8.4-10.2) mg/dL 11/17/16 11/17/16 11/17/16 Range/Units 04:17 04:17 08:41 WBC (3.8-10.6) k/uL RBC (4.30-5.90) m/uL Hgb (13.0-17.5) gm/dL Hct (39.0-53.0) % MCH (25.0-35.0) pg MCHC (31.0-37.0) g/dL RDW (11.5-15.5) % Plt Count (150-450) k/uL Neutrophils # (1.3-7.7) k/uL Lymphocytes # (1.0-4.8) k/uL PT 13.5 H (9.0-12.0) sec APTT 40.0 H (22.0-30.0) sec Sodium (137-145) mmol/L Potassium (3.5-5.1) mmol/L Chloride (98-107) mmol/L Carbon Dioxide (22-30) mmol/L BUN (9-20) mg/dL Glucose (74-99) mg/dL POC Glucose (mg/dL) 137 H (75-99) mg/dL Calcium (8.4-10.2) mg/dL 11/17/16 11/17/16 11/17/16 Range/Units 11:47 15:01 16:45 WBC (3.8-10.6) k/uL RBC (4.30-5.90) m/uL Hgb (13.0-17.5) gm/dL Hct (39.0-53.0) % MCH (25.0-35.0) pg MCHC (31.0-37.0) g/dL RDW (11.5-15.5) % Plt Count (150-450) k/uL Neutrophils # (1.3-7.7) k/uL Lymphocytes # (1.0-4.8) k/uL PT (9.0-12.0) sec APTT 53.0 H (22.0-30.0) sec Sodium (137-145) mmol/L Potassium 3.2 L (3.5-5.1) mmol/L Chloride (98-107) mmol/L Carbon Dioxide (22-30) mmol/L BUN (9-20) mg/dL Glucose (74-99) mg/dL POC Glucose (mg/dL) 155 H (75-99) mg/dL Calcium (8.4-10.2) mg/dL Microbiology - Last 24 Hours (Table) 11/15/16 10:30 Gram Stain - Preliminary Pericardial Fluid Body Fluid Culture - Preliminary Sravani albicans 11/16/16 01:30 Urine Culture - Final Urine,Catheterized Assessment and Plan Plan: The patient was seen and examined. I agree with the above assessment and plan. His Coumadin is currently on hold for possible thoracentesis. Ultrasound of the pleural spaces is planned for later today. Otherwise he remains on antibiotics as directed by infectious disease. We will resume diuresis today.
--- NOTE | 2016-11-17 11:01 | US ---
EXAMINATION TYPE: US chest DATE OF EXAM: 11/17/2016 10:47 AM COMPARISON: NONE CLINICAL HISTORY: eval for fluid for possible thorax bilaterally. EXAM MEASUREMENTS: Right Pleural Effusion fluid pocket: 3.4 cm Right skin to fluid thickness: 4.8 cm Highly consolidated collection. Left Pleural Effusion fluid pocket: 6.0 cm Left skin to fluid thickness: 2.5 cm Loculated fluid collection Right side marked for possible thoracentesis outside the dept. Left side marked for possible thoracentesis outside the dept. Pulmonologists are able to review the images in the patient?s EMR. Both pleural effusions are loculated. IMPRESSIONS: BILATERAL, LOCULATED PLEURAL EFFUSIONS.
[2016-11-17] MEDS: FUROSEMIDE 10 MG/ML 4 ML VIAL IV SCH (11:48)
[2016-11-17] MEDS: POTASSIUM CHLORIDE ER 20 MEQ TAB.ER PO SCH ×2 (11:49→11:50)
[2016-11-17 11:51] LABS: Glucose,Whole Blood 155 mg/dL (75-99)
[2016-11-17] MEDS: MULTIVITAMINS, THERA 1 EACH TAB PO SCH (11:51)
--- NOTE | 2016-11-17 12:34 | P.PN ---
Subjective Principal diagnosis: Pulmonary edema and bilateral pleural effusions, atrial fibrillation with RVR. 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 Patient was eventually discharged home after a relatively prolonged hospital course, patient was readmitted on October 06 through October 30 with increased shortness of breath, and he was found to have congestive heart failure, sterility 1 dehiscence requiring sternal exploration and debridement and wound closure with bilateral pectoralis muscle flaps. During that admission , patient also required left sided chest tube placement, right sided thoracentesis, patient was eventually extubated, and transferred to rehab at [facility] under the care of Dr. Reyes. However after few days, patient developed congestive heart failure, worsening pleural effusion requiring thoracentesis again, loculated pleural effusion on the right side was noted based on ultrasound and CT of the chest, there was some purulence noted in his MEGHAN drains which are mediastinal drains, hence arrangements were made to transfer the patient back to [facility]. Patient was initially admitted to the intensive care unit, placed on broad-spectrum antibiotics, he is on heparin drip, and his last hospitalization while at [facility], his sputum was positive for Haemophilus influenza and Serratia marcescens. At any rate patient is to be seen by many consultants during this transfer, and I was asked to see him on consultation today. Patient was placed back on his usual medications, diuretics, I reviewed her chest x-ray, and I felt that the patient has bilateral pleural effusions, small at this point, will not require thoracentesis at least not for now. Patient was reevaluated today on 11/16/2016, breathing a bit easier, however the patient is requiring levo fed for low blood pressure. Remains in atrial fibrillation, but rate seems to be better controlled today. Remains on antibiotics for presumptive infectious process, however cultures have been negative so far. Chest x-ray continues to show bilateral pleural effusions and congestive heart failure changes. Lasix is presently on hold. Since the blood pressure was marginal earlier today requiring transferring back to the ICU. Patient was reevaluated today on 11/17/2016, clinically the patient seems to be doing much better, breathing a lot easier. Blood pressure remains marginal. Chest x-ray is showing some congestive heart failure changes, bilateral pleural effusions, ultrasound on the chest showed loculated pleural effusion, the amount of the fluid on both lungs are small, and not much to consider safe thoracentesis. Hence no plans to do thoracentesis at this point mostly because of the fluid is loculated and because the size of the fluid is rather small smaller on the right than on the left. Patient was placed back on Coumadin, hence we will continue with the Coumadin for anticoagulation. Given a dose of Lasix this morning, 40 mg IV push, and we'll likely continue on a daily basis depending and is on his overall clinical condition. Patient is feeling again much better today, less short of breath. And he seems to be quite appropriate. Labs showed WBC count of 15 hemoglobin of 7.1. INR is 1.4. Electrolytes showed low potassium of 3.1 BUN is 53 creatinine is 1.17. Hence will be cautious with diuretics. Objective - Vital Signs Vital signs: Vital Signs Temp 97.8 F 11/17/16 08:00 Pulse 107 H 11/17/16 11:26 Resp 15 11/17/16 11:00 BP 78/56 11/17/16 11:00 Pulse Ox 96 11/17/16 11:00 Intake & Output 11/16/16 11/17/16 11/17/16 18:59 06:59 18:59 Intake Total 1751.594 720.13 84.8 Output Total 1285 630 200 Balance 466.594 90.13 -115.2 Weight 105.9 kg 106.3 kg Intake: IV 590 290 84.8 Calcium Gluconate 2,000 100 mg In Sodium Chloride 0.9 % 100 ml @ 100 mls/hr IVPB ONCE ONE Rx#: [id number] Heparin Sodium,Porcine/ 44.8 D5w Pmx 25,000 unit In Dextrose/Water 1 500ml. bag @ 15 UNITS/KG/HR 32. 01 mls/hr IV .[id number] [facility] Rx#:[id number] Magnesium Sulfate-D5w Pmx 200 1 gm In Dextrose/Water 1 100ml.bag @ 100 mls/hr IVPB Q1H [facility] Rx#: [id number] Piperacillin-Tazobactam 3 50 50 .375 gm In Dextrose/Water 1 50ml.bag @ 12.5 mls/hr IVPB Q8HR [facility] Rx#: [id number] Sodium Chloride 0.9% 1, 240 240 40 000 ml @ 20 mls/hr IV . Q24H [facility] Rx#:[id number] Intake, IV Titration 571.594 430.13 Amount Heparin Sodium,Porcine/ 500 410.13 D5w Pmx 25,000 unit In Dextrose/Water 1 500ml. bag @ 15 UNITS/KG/HR 32. 01 mls/hr IV .[id number] [facility] Rx#:[id number] Norepinephrin 16 mg-0.9% 71.594 Ns Pmx 16 mg In 250 ml @ Titrate IV .Q0M [facility] Rx#: [id number] Sodium Chloride 0.9% 1, 20 000 ml @ 20 mls/hr IV . Q24H [facility] Rx#:[id number] Oral 110 Other 480 Output: Drainage 170 Left Lateral MEGHAN Drain 0 Medial MEGHAN Drain 150 Right Lateral MEGHAN Drain 20 Urine 1115 630 200 Other: Voiding Method Urinal Urinal Urinal - Exam Physical Exam: Revealed a 71-year-old white male, cachectic, pale looking, not in respiratory distress HEENT:[Neck ithroughout, nos supple.] [No neck masses.] [No thyromegaly.] [No JVD.] Chest: [Diminished breath sounds and crackles at the bases were noted. No rhonchi no wheezes.] Cardiac Exam: [Irregular irregular rhythm, dressing on sternal wound is noted, MEGHAN drains 2 were noted. Abdomen: [Soft, nontender, no megaly, no rebound, no guarding, normal bowel sounds.] Extremities: [No clubbing, 3+ bipedal edema, no cyanosis.] Neurological Exam: [No focal neurologic deficit.] - Labs CBC & Chem 7: 11/17/16 04:17 11/17/16 04:17 Labs: Abnormal Lab Results - Last 24 Hours (Table) 11/16/16 11/16/16 11/16/16 Range/Units 13:37 17:15 21:02 WBC (3.8-10.6) k/uL RBC (4.30-5.90) m/uL Hgb (13.0-17.5) gm/dL Hct (39.0-53.0) % MCH (25.0-35.0) pg MCHC (31.0-37.0) g/dL RDW (11.5-15.5) % Plt Count (150-450) k/uL Neutrophils # (1.3-7.7) k/uL Lymphocytes # (1.0-4.8) k/uL PT (9.0-12.0) sec APTT (22.0-30.0) sec Sodium (137-145) mmol/L Potassium (3.5-5.1) mmol/L Chloride (98-107) mmol/L Carbon Dioxide (22-30) mmol/L BUN (9-20) mg/dL Glucose (74-99) mg/dL POC Glucose (mg/dL) 157 H 134 H 176 H (75-99) mg/dL Calcium (8.4-10.2) mg/dL 11/17/16 11/17/16 11/17/16 Range/Units 04:17 04:17 04:17 WBC 15.0 H (3.8-10.6) k/uL RBC 2.89 L (4.30-5.90) m/uL Hgb 7.1 L (13.0-17.5) gm/dL Hct 24.7 L (39.0-53.0) % MCH 24.5 L (25.0-35.0) pg MCHC 28.7 L (31.0-37.0) g/dL RDW 18.1 H (11.5-15.5) % Plt Count 485 H (150-450) k/uL Neutrophils # 13.2 H (1.3-7.7) k/uL Lymphocytes # 0.9 L (1.0-4.8) k/uL PT 13.5 H (9.0-12.0) sec APTT (22.0-30.0) sec Sodium 133 L (137-145) mmol/L Potassium 3.1 L (3.5-5.1) mmol/L Chloride 89 L (98-107) mmol/L Carbon Dioxide 33 H (22-30) mmol/L BUN 53 H (9-20) mg/dL Glucose 107 H (74-99) mg/dL POC Glucose (mg/dL) (75-99) mg/dL Calcium 5.8 L* (8.4-10.2) mg/dL 11/17/16 11/17/16 11/17/16 Range/Units 04:17 08:41 11:47 WBC (3.8-10.6) k/uL RBC (4.30-5.90) m/uL Hgb (13.0-17.5) gm/dL Hct (39.0-53.0) % MCH (25.0-35.0) pg MCHC (31.0-37.0) g/dL RDW (11.5-15.5) % Plt Count (150-450) k/uL Neutrophils # (1.3-7.7) k/uL Lymphocytes # (1.0-4.8) k/uL PT (9.0-12.0) sec APTT 40.0 H (22.0-30.0) sec Sodium (137-145) mmol/L Potassium (3.5-5.1) mmol/L Chloride (98-107) mmol/L Carbon Dioxide (22-30) mmol/L BUN (9-20) mg/dL Glucose (74-99) mg/dL POC Glucose (mg/dL) 137 H 155 H (75-99) mg/dL Calcium (8.4-10.2) mg/dL Microbiology - Last 24 Hours (Table) 11/16/16 01:30 Urine Culture - Preliminary Urine,Catheterized 11/15/16 10:30 Gram Stain - Preliminary Pericardial Fluid Body Fluid Culture - Preliminary Assessment and Plan Plan: Impression: 1 acute on chronic congestive heart failure secondary to diastolic dysfunction and possibly some component of LV dysfunction based on the echocardiogram. 2 recent aortic valve replacement and mitral valve repair. 3 recent sternal wound dehiscence requiring pectoralis muscle flap. 4 history of coronary artery disease and previous CABG. 5 acute hypoxic respiratory failure secondary to congestive heart failure, and bilateral pleural effusions. 6 persistent atrial fibrillation with variable rate, patient remains on IV heparin. 7 history of pleural effusions requiring thoracentesis 2 on the right side. Follow-up ultrasound of the chest today showed small amount of fluid on both sides, the fluid is loculated, and safety thoracentesis cannot be done. Hence no plans to tap the patient today mostly because of the size is small, not to mention the fluid is loculated in both sides. 8 moderate severe pulmonary hypertension. 9 history of chronic histoplasmosis. 10 history of degenerative joint disease. 11 history of GERD without esophagitis. 12 history of hypothyroidism. 13 history of coronary artery disease and previous CABG. Recommendation: Continue present treatment plan including diuretics, antibiotics , antimicrobial therapy as advised by infectious disease. Patient will be kept in the ICU today, and we will continue to follow. I discussed his condition with his at bedside. We'll continue to follow. Time with Patient: Less than 30
[2016-11-17] MEDS ORDERED: POTASSIUM CHLORIDE 20 MEQ in WATER FOR INJECTION 1 100ML.BAG IVPB ONE (15:53)
[2016-11-17] MEDS: WARFARIN 5 MG TAB PO SCH (19:03)
[2016-11-17 20:40] LABS: Glucose,Whole Blood 180 mg/dL (75-99)
--- NOTE | 2016-11-17 21:03 | P.PN ---
Subjective Principal diagnosis: respiratory failure This is a 71-year-old male well known to ID service who came in the hospital on September 23 and underwent a JAYDE and heart catheterization showing a ruptured chordae tendonae, mitral regurgitation, moderate pulmonary hypertension , with history of paroxysmal atrial fibrillation and heart failure. 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 With this the patient was initiated to itraconazole. He however developed atrial fibrillation. Because of this he was initiated to amiodarone. The dose of itraconazole was reduced by 50%. There is no evidence of alteration of the QT interval while he was in hospital. He eventually was discharged home. It is related that he was not able to obtain the itraconazole. In this is going to be addressed in the coming days. However he returned to [facility] emergency center due to shortness of breath and was hospitalized October 06 through October 30 at which time he required intubation and mechanical ventilation. He was successfully extubated. He was treated for dehiscence of sternal wires requiring sternal exploration, debridement and wound closure with bilateral pectoralis major myocutaneous advanced flaps. He also required chest tube placement for left pleural effusion and right thoracentesis for right pleural effusion with drainage of 1.5 L of dark red tinged fluid. Muscle flap procedure was done on October 15. Patient was stabilized and then transferred to [facility] for inpatient rehab under the care of Dr. Christina. He developed increasing shortness of breath and edema and was eventually transferred to the intensive care unit where he was found to be in atrial fibrillation with rapid ventricular response and acute systolic heart failure and underwent thoracentesis with removal of 1.6 L on the right chest. Patient was treated in the intensive care unit until a bed was available at [facility] he was a direct transfer. Chest x-ray here shows developing pleural fluid collection along lateral right chest wall. Consults are in place with Dr. Gaffney, cardiovascular surgeon and cardiology. Patient has [address] with one showing some purulence for which a culture to be sent today. Patient has had some mild confusion since admission. He did receive extra dose of Lasix this morning. He has been afebrile. Patient is on heparin drip and amiodarone is oral. For antibiotics, patient is on Zosyn. Echocardiogram reveals EF 40-45%, normally functioning bioprosthetic valve, trace mitral regurgitation, mild tricuspid regurgitation. Sputum culture during his hospitalization of October 06 was positive for Haemophilus influenza and Serratia marcescens susceptible to Zosyn. Continues to show significant improvement. Voice is stronger. Sitting upright. Eating better. Less short of breath. Less sputum production. Stood at 2 events today showing his increasing strength. Objective - Vital Signs Vital signs: Vital Signs Temp 97.8 F 11/17/16 08:00 Pulse 104 H 11/17/16 20:54 Resp 26 H 11/17/16 20:00 BP 84/67 11/17/16 19:00 Pulse Ox 95 11/17/16 20:00 Intake & Output 11/17/16 11/17/16 11/18/16 06:59 18:59 06:59 Intake Total 720.13 609.12 40 Output Total 630 1675 375 Balance 90.13 -1065.88 -335 Weight 106.3 kg Intake: IV 290 609.12 40 Heparin Sodium,Porcine/ 369.12 D5w Pmx 25,000 unit In Dextrose/Water 1 500ml. bag @ 15 UNITS/KG/HR 32. 01 mls/hr IV .[id number] [facility] Rx#:[id number] Piperacillin-Tazobactam 3 50 .375 gm In Dextrose/Water 1 50ml.bag @ 12.5 mls/hr IVPB Q8HR [facility] Rx#: [id number] Sodium Chloride 0.9% 1, 240 240 40 000 ml @ 20 mls/hr IV . Q24H [facility] Rx#:[id number] Intake, IV Titration 430.13 Amount Heparin Sodium,Porcine/ 410.13 D5w Pmx 25,000 unit In Dextrose/Water 1 500ml. bag @ 15 UNITS/KG/HR 32. 01 mls/hr IV .[id number] [facility] Rx#:[id number] Sodium Chloride 0.9% 1, 20 000 ml @ 20 mls/hr IV . Q24H [facility] Rx#:[id number] Output: Urine 630 1675 375 Other: Voiding Method Indwelling Catheter Urinal Indwelling Catheter - Exam This is a 71-year-old male. He appears comfortable lying in ICU bed. He does arouse to verbal stimuli and is able to follow simple commands and answer questions. Cardiac monitors atrial fibrillation with rapid ventricular response. HEENT: Head is atraumatic, normocephalic. Pupils equal, round. Sclerae is anicteric. Conjunctiva slightly pale. Mucous membranes of the mouth are dry. No thrush noted. NECK: Supple. No JVD. No lymphadenopathy. No thyromegaly. LUNGS: There are bibasal crackles. No significant bronchial sounds. MEGHAN drain to the right chest shows serous drainage small amount. MEGHAN drain to the midsternal area show serosanguineous with some yellow exudate. Left lateral MEGHAN drain with serous drainage. HEART: Irregular with no murmur Dressing on sternal wound and place. ABDOMEN: Distinctly distended. Bowel sounds are normal. Organomegaly is not detected. Abdomen is nontender. EXTREMITIES: +3 bilateral pedal edema. SCDs in place. NEUROLOGICAL: Awake and alert. Able to follow simple commands and answer questions. - Labs CBC & Chem 7: 11/17/16 04:17 11/17/16 19:56 Labs: Abnormal Lab Results - Last 24 Hours (Table) 11/16/16 11/17/16 11/17/16 Range/Units 21:02 04:17 04:17 WBC 15.0 H (3.8-10.6) k/uL RBC 2.89 L (4.30-5.90) m/uL Hgb 7.1 L (13.0-17.5) gm/dL Hct 24.7 L (39.0-53.0) % MCH 24.5 L (25.0-35.0) pg MCHC 28.7 L (31.0-37.0) g/dL RDW 18.1 H (11.5-15.5) % Plt Count 485 H (150-450) k/uL Neutrophils # 13.2 H (1.3-7.7) k/uL Lymphocytes # 0.9 L (1.0-4.8) k/uL PT (9.0-12.0) sec APTT (22.0-30.0) sec Sodium 133 L (137-145) mmol/L Potassium 3.1 L (3.5-5.1) mmol/L Chloride 89 L (98-107) mmol/L Carbon Dioxide 33 H (22-30) mmol/L BUN 53 H (9-20) mg/dL Glucose 107 H (74-99) mg/dL POC Glucose (mg/dL) 176 H (75-99) mg/dL Calcium 5.8 L* (8.4-10.2) mg/dL 11/17/16 11/17/16 11/17/16 Range/Units 04:17 04:17 08:41 WBC (3.8-10.6) k/uL RBC (4.30-5.90) m/uL Hgb (13.0-17.5) gm/dL Hct (39.0-53.0) % MCH (25.0-35.0) pg MCHC (31.0-37.0) g/dL RDW (11.5-15.5) % Plt Count (150-450) k/uL Neutrophils # (1.3-7.7) k/uL Lymphocytes # (1.0-4.8) k/uL PT 13.5 H (9.0-12.0) sec APTT 40.0 H (22.0-30.0) sec Sodium (137-145) mmol/L Potassium (3.5-5.1) mmol/L Chloride (98-107) mmol/L Carbon Dioxide (22-30) mmol/L BUN (9-20) mg/dL Glucose (74-99) mg/dL POC Glucose (mg/dL) 137 H (75-99) mg/dL Calcium (8.4-10.2) mg/dL 11/17/16 11/17/16 11/17/16 Range/Units 11:47 15:01 16:45 WBC (3.8-10.6) k/uL RBC (4.30-5.90) m/uL Hgb (13.0-17.5) gm/dL Hct (39.0-53.0) % MCH (25.0-35.0) pg MCHC (31.0-37.0) g/dL RDW (11.5-15.5) % Plt Count (150-450) k/uL Neutrophils # (1.3-7.7) k/uL Lymphocytes # (1.0-4.8) k/uL PT (9.0-12.0) sec APTT 53.0 H (22.0-30.0) sec Sodium (137-145) mmol/L Potassium 3.2 L (3.5-5.1) mmol/L Chloride (98-107) mmol/L Carbon Dioxide (22-30) mmol/L BUN (9-20) mg/dL Glucose (74-99) mg/dL POC Glucose (mg/dL) 155 H (75-99) mg/dL Calcium (8.4-10.2) mg/dL 11/17/16 11/17/16 Range/Units 19:56 20:38 WBC (3.8-10.6) k/uL RBC (4.30-5.90) m/uL Hgb (13.0-17.5) gm/dL Hct (39.0-53.0) % MCH (25.0-35.0) pg MCHC (31.0-37.0) g/dL RDW (11.5-15.5) % Plt Count (150-450) k/uL Neutrophils # (1.3-7.7) k/uL Lymphocytes # (1.0-4.8) k/uL PT (9.0-12.0) sec APTT (22.0-30.0) sec Sodium (137-145) mmol/L Potassium 3.3 L (3.5-5.1) mmol/L Chloride (98-107) mmol/L Carbon Dioxide (22-30) mmol/L BUN (9-20) mg/dL Glucose (74-99) mg/dL POC Glucose (mg/dL) 180 H (75-99) mg/dL Calcium (8.4-10.2) mg/dL Microbiology - Last 24 Hours (Table) 11/15/16 10:30 Gram Stain - Preliminary Pericardial Fluid Body Fluid Culture - Preliminary Sravani albicans 11/16/16 01:30 Urine Culture - Final Urine,Catheterized Laboratory Results WBC 15.0 k/uL (3.8-10.6) H 11/17/16 04:17 RBC 2.89 m/uL (4.30-5.90) L 11/17/16 04:17 Hgb 7.1 gm/dL (13.0-17.5) L 11/17/16 04:17 Hct 24.7 % (39.0-53.0) L 11/17/16 04:17 MCV 85.4 fL (80.0-100.0) 11/17/16 04:17 MCH 24.5 pg (25.0-35.0) L 11/17/16 04:17 MCHC 28.7 g/dL (31.0-37.0) L 11/17/16 04:17 RDW 18.1 % (11.5-15.5) H 11/17/16 04:17 Plt Count 485 k/uL (150-450) H 11/17/16 04:17 Neutrophils % 88 % 11/17/16 04:17 Neutrophils % (Manual) 86.0 % 11/15/16 04:18 Band Neutrophils % 1.0 % 11/15/16 04:18 Lymphocytes % 6 % 11/17/16 04:17 Lymphocytes % (Manual) 6.0 % 11/15/16 04:18 Monocytes % 4 % 11/17/16 04:17 Monocytes % (Manual) 7.0 % 11/15/16 04:18 Eosinophils % 1 % 11/17/16 04:17 Basophils % 0 % 11/17/16 04:17 Neutrophils # 13.2 k/uL (1.3-7.7) H 11/17/16 04:17 Neutrophils # (Manual) 12.9 k/uL (1.3-7.7) H 11/15/16 04:18 Lymphocytes # 0.9 k/uL (1.0-4.8) L 11/17/16 04:17 Lymphocytes # (Manual) 0.9 k/uL (1.0-4.8) L 11/15/16 04:18 Monocytes # 0.6 k/uL (0-1.0) 11/17/16 04:17 Monocytes # (Manual) 1.0 k/uL (0-1.0) 11/15/16 04:18 Eosinophils # 0.1 k/uL (0-0.7) 11/17/16 04:17 Basophils # 0.0 k/uL (0-0.2) 11/17/16 04:17 Nucleated RBCs 1 /100 WBC (0-0) H 11/15/16 04:18 Manual Slide Review Performed 11/15/16 04:18 Polychromasia Present 11/15/16 04:18 Hypochromasia Marked 11/17/16 04:17 Hypochromasia (manual) Pres 11/15/16 04:18 Poikilocytosis Moderate 11/17/16 04:17 Anisocytosis Slight 11/17/16 04:17 Anisocytosis (manual) Present 11/15/16 04:18 Spherocytes Present 11/15/16 04:18 PT 13.5 sec (9.0-12.0) H 11/17/16 04:17 INR 1.4 (<1.1) 11/17/16 04:17 APTT 53.0 sec (22.0-30.0) H 11/17/16 16:45 Sodium 133 mmol/L (137-145) L 11/17/16 04:17 Potassium 3.3 mmol/L (3.5-5.1) L 11/17/16 19:56 Chloride 89 mmol/L (98-107) L 11/17/16 04:17 Carbon Dioxide 33 mmol/L (22-30) H 11/17/16 04:17 Anion Gap 11 mmol/L 11/17/16 04:17 BUN 53 mg/dL (9-20) H 11/17/16 04:17 Creatinine 1.17 mg/dL (0.66-1.25) 11/17/16 04:17 Est GFR (MDRD) Af Amer >60 (>60 ml/min/1.73 sqM) 11/17/16 04:17 Est GFR (MDRD) Non-Af >60 (>60 ml/min/1.73 sqM) 11/17/16 04:17 Glucose 107 mg/dL (74-99) H 11/17/16 04:17 POC Glucose (mg/dL) 180 mg/dL (75-99) H 11/17/16 20:38 POC Glu Rehab Tech ID Christine Diop 11/17/16 20:[address] Glu mg/dL 103 mg/dL 11/13/16 21:54 Hemoglobin A1c 5.2 % (4.2-6.1) 11/13/16 21:54 Plasma Lactic Acid Samir 1.7 mmol/L (0.7-2.0) 11/16/16 03:39 Calcium 5.8 mg/dL (8.4-10.2) L* 11/17/16 04:17 Phosphorus 3.9 mg/dL (2.5-4.5) 11/17/16 04:17 Magnesium 2.3 mg/dL (1.6-2.3) 11/17/16 04:17 Total Bilirubin 1.0 mg/dL (0.2-1.3) 11/15/16 23:51 AST 25 U/L (17-59) 11/15/16 23:51 ALT 38 U/L (21-72) 11/15/16 23:51 Alkaline Phosphatase 88 U/L (38-126) 11/15/16 23:51 Total Protein 6.1 g/dL (6.3-8.2) L 11/15/16 23:51 Albumin 2.6 g/dL (3.5-5.0) L 11/15/16 23:51 Free T4 1.58 ng/dL (0.78-2.19) 11/15/16 04:18 Thyroid Stim Immunoglob <0.10 IU/L (<0.10) 11/15/16 04:18 Urine Color Yellow 11/16/16 01:30 Urine Appearance Clear (Clear) 11/16/16 01:30 Urine pH 6.0 (5.0-8.0) 11/16/16 01:30 Ur Specific [place] 1.009 (1.001-1.035) 11/16/16 01:30 Urine Protein Negative (Negative) 11/16/16 01:30 Urine Glucose (UA) Negative (Negative) 11/16/16 01:30 Urine Ketones Negative (Negative) 11/16/16 01:30 Urine Blood Negative (Negative) 11/16/16 01:30 Urine Nitrite Negative (Negative) 11/16/16 01:30 Urine Bilirubin Negative (Negative) 11/16/16 01:30 Urine Urobilinogen <2.0 mg/dL (<2.0) 11/16/16 01:30 Ur Leukocyte Esterase Negative (Negative) 11/16/16 01:30 Microbiology 11/15/16 10:30 Pericardial Fluid Gram Stain - Preliminary 11/15/16 10:30 Pericardial Fluid Body Fluid Culture - Preliminary Sravani albicans 11/16/16 01:30 Urine,Catheterized Urine Culture - Final - Imaging and Cardiology Chest x-ray: image reviewed (Bilateral pleural effusions left greater than right.) Assessment and Plan (1) Acute respiratory failure Narrative/Plan: He has not the patient decompensated last evening. He became more tachypneic and tachycardic and her relative hypotension. Also mild increase of his lactic acid. This is almost resolved. He was transferred to the intensive care unit is feeling better. His speech is getting stronger. Was able to self feed his entire dinner without difficulties later in the day. And has no other new acute complaints. Continue supportive care. Current thoracic is following with no plans for any surgical intervention. The patient's MEGHAN drain was cultured and show some Sravani. This colonization of the drain out of the patient. He does not require any specific therapy. Especially since he is so clinically improved at this point in time. Improving leukocytosis improving fevers improving strength. Not likely to have a deep-seated Sravani infection at this time. Currently receiving Zosyn therapy which is allowed a rapid improvement. We'll plan 7 days of therapy. Status: Acute
[2016-11-17] MEDS: ATORVASTATIN 10 MG TAB PO SCH (21:17)
--- NOTE | 2016-11-17 22:13 | PN ---
DATE OF SERVICE: 11/17/2016 PRESENTING COMPLAINT: Shortness of breath. INTERVAL HISTORY: This is a patient presented with acute on chronic congestive heart failure exacerbation from diastolic dysfunction. Today patient is sitting up in bed enjoying his breakfast. is at the bedside. Patient does not look distressed. Says he feels pretty good. No complaints at this time. Review of systems done for constitutional, cardiovascular, GI, pulmonary, with relevant findings as above. CURRENT MEDICATIONS: DuoNeb q.i.d., amiodarone 200 mg p.o. daily, Aspirin 81 mg p.o. daily, Lipitor 10 mg at bedtime. Lasix. IV q.8h. Zaroxolyn 2.5 mg p.o. daily. Lopressor 25 mg b.i.d. PHYSICAL EXAMINATION: VITAL SIGNS: Temperature 97.8, heart rate 109, respiratory rate 19, blood pressure 97/60, oxygen saturation 94% on 6 liters nasal cannula. GENERAL APPEARANCE: Patient appears pale, but awake and alert, able to answer questions. EYES: Pupils equal. Conjunctivae normal. NECK: JVD not raised. Mass not palpable. LUNGS: Diminished bilaterally. RESPIRATORY: Effort normal. CARDIOVASCULAR: First and second sounds noted. Irregular. Significant edema. ABDOMEN: Soft, nontender. Liver and spleen not palpable. PSYCHIATRY: Alert and oriented x3. Mood and affect are normal. INVESTIGATIONS: White blood cell count 15.0, hemoglobin 7.1, INR 1.4. Sodium 133, potassium 3.1. BUN 53, creatinine 1.17, blood glucose 107, chest x-ray shows some congestive heart failure changes, bilateral pleural effusions. Ultrasound of the chest shows loculated pleural effusion. Gram stain for body fluid culture shows Sravani albicans. ASSESSMENT: 1. Acute on chronic congestive heart failure exacerbation from diastolic dysfunction, ejection fraction 55% to 60%, slow to improve. 2. Aortic valve replacement and moderate mitral valve repair. 3. Sternal wound dehiscence with pectoralis flap in place, slow to respond. 4. Coronary artery disease with prior coronary artery bypass. 5. Acute hypoxic respiratory failure, on high flow nasal cannula, slow to respond. 6. Persistent atrial fibrillation variable rate, on IV heparin. 7. Chronic histoplasmosis, status post biopsy. 8. Status post pleural effusion that was tapped. 9. Hypercholesterolemia. 10. Hypotension. 11. Hypothyroidism. 12. Obesity; BMI 34.6. 13. Primary osteoarthritis of multiple joints bilaterally. 14. Moderate secondary pulmonary hypertension. 15. Gastroesophageal reflux disease. 16. CODE STATUS: FULL. PLAN: Cardiothoracic surgery, Pulmonology and cardiology all continue to follow this patient as well as infectious disease. Patient currently on Fortaz for Sravani albicans organism and that will cover. Patient's anticoagulation needs will be met with Coumadin. We will continue current medication and treatment plan per other discipline recommendations. Will follow. Patient was seen and examined by nurse practitioner, Karyna Murary, and all elements of the case discussed with attending, Dr. Dillon. I performed a history and physical examination of this patient and discussed the same with the dictator. I agree with the dictator's note. Any additional findings/opinions, etc. will be noted.
[2016-11-17] MEDS: HEPARIN SODIUM,PORCINE/D5W PMX 25,000 UNIT in DEXTROSE/WATER 1 500ML.BAG IV SCH (23:58)
[2016-11-18] MEDS: HYDROcodone/APAP 10-325MG 1 EACH TAB PO PRN (04:28)
[2016-11-18 04:55] LABS: Anisocytosis Slight; Basophils % (A) 0 %; CH 25.2; CHCM 29.3; Eosinophils # (A) 0.1 k/uL (0-0.7); Eosinophils % (A) 1 %; HCT 26.2 % (39.0-53.0); HDW 4.21; HGB 7.4 gm/dL (13.0-17.5); Hypochromasia Marked; Luc # (Auto) 0.22; Luc % (Auto) 1; Lymphocytes # (A) 1.1 k/uL (1.0-4.8); Lymphocytes % (A) 7 %; MCH 24.1 pg (25.0-35.0); MCHC 28.1 g/dL (31.0-37.0); MCV 85.6 fL (80.0-100.0); Mean Platelet Volume 8.1; Monocytes # (A) 0.8 k/uL (0-1.0); Monocytes % (A) 5 %; Neutrophils # (A) 13.2 k/uL (1.3-7.7); Neutrophils % (A) 85 %; Poikilocytosis Moderate; RBC 3.06 m/uL (4.30-5.90); WBC 15.5 k/uL (3.8-10.6); WBC (Perox) 16.86
[2016-11-18 05:10] LABS: INR 1.5 (<1.1); Partial Thromboplastin Time 58.8 sec (22.0-30.0); Prothrombin Time 14.5 sec (9.0-12.0)
[2016-11-18 05:18] LABS: ALT 31 U/L (21-72); AST 23 U/L (17-59); Alkaline Phosphatase 84 U/L (38-126); Anion Gap 10 mmol/L; Blood Urea Nitrogen 47 mg/dL (9-20); Carbon Dioxide 34 mmol/L (22-30); Chloride 90 mmol/L (98-107); Glucose 118 mg/dL (74-99); Magnesium 2.3 mg/dL (1.6-2.3); Non-African American GFR(MDRD) >60 (>60 ml/min/1.73 sqM); Phosphorous 3.9 mg/dL (2.5-4.5); Potassium 3.3 mmol/L (3.5-5.1); Sodium 134 mmol/L (137-145); Total Bilirubin 0.9 mg/dL (0.2-1.3); Total Protein 5.8 g/dL (6.3-8.2)
[2016-11-18 05:20] LABS: Calcium 6.1 mg/dL (8.4-10.2)
[2016-11-18] MEDS ORDERED: Potassium Replacement Protocol 1 EACH MISC MISCELLANE PRN (05:42)
--- NOTE | 2016-11-18 06:32 | P.CONS ---
History of Present Illness - Chief Complaint Medical debility - History of Present Illness I had the op to see patient for inpatient rehab consultation with regard to cardiac debility. He is known to me from recent rehab stay. His recent status post MVR and aVR resultant cardiac debility and required inpatient rehab. Did well is discharged to home with and support services. Return tear with acute on chronic congestive heart failure as well as his anterior chest wound. Chest ultrasound demonstrated bilateral pleural effusions. Chest x-rays followed. PT reports maximal assistance of 2 person for functional mobility. OT reports minimal assistance for upper dressing and total for lower dressing and toileting. Maximal for bathing. Moderate assistance of 2 person for functional mobility. Review of Systems Review of systems: ENT: Denies sneezes or discharge. Eyes: Denies discharge or photophobia. Cardiac: Denies chest pain or palpitation. Pulmonary: At least mild shortness of breath. Gastrointestinal: Denies nausea, emesis, constipation, diarrhea. Genitourinary: Denies discharge or frequency. Musculoskeletal: Denies muscle or bone aches. Neurologic: At least mild generalized weakness. Endocrine: Denies shakes or sweats. Oncology: Denies cancers. Dermatologic: Denies rash, itching, pruritus. ALLERGY/immunology: Denies sneezes, rashes. Past Medical History Past Medical History: Atrial Fibrillation, Cancer, Heart Failure, Hyperlipidemia , Osteoarthritis (OA), Thyroid Disorder Additional Past Medical History / Comment(s): Current mediastinal lymphadenopathy with histoplasmosis being tx with ABX by Dr. Ramos, THYROID CANCER with surgery/radiation, varicose veins, rheumatic fever, paroxysmal atrial fibrillation, aortic valve insufficiency and mitral valve regurgitation- recent valvular surgery, moderate pulmonary hypertension History of Any Multi-Drug Resistant Organisms: None Reported Past Surgical History: Cardiac Valve Replacement, Heart Catheterization, Joint Replacement Additional Past Surgical History / Comment(s): thyroidectomy, total left knee replacement, 08/2016cardiac cath/fabiola, 09/29/16 aortic valve replacement with bovine valve, mitral valve repair, mediastinal lymph node biopsy, colonoscopies/ polypectomy-benign. Past Anesthesia/Blood Transfusion Reactions: No Reported Reaction Past Psychological History: No Psychological Hx Reported Additional Psychological History / Comment(s): Pt resides with his spouse. He has [facility] home care. He uses no assistive device. He has not driven since cardiac valve surgery, his spouse does the driving.SMOKED 3 PPD. Started smoking in 1959 and QUIT SMOKING 1979. Pt smoked cigars on and off from 1991 until 1999. He denies any medical marijuana, marijuana, street drug use. He states he has not had any alcohol intake for the past 3 months. He usually drinks 0-2 alcoholic beverages per day. He has traveled in the past in [place] , [place], [place], [facility], [place] and [place]. He has worked in the past at [employer]. Smoking Status: Former smoker Past Alcohol Use History: Rare Additional Past Alcohol Use History / Comment(s): SMOKED 3 PPD. Started smoking in 1959 and QUIT SMOKING 1979. Pt smoked cigars on and off from 1991 until 1999. He denies any medical marijuana, marijuana, street drug use. He states he has not had any alcohol intake for the past 3 months. He usually drinks 0-2 alcoholic beverages per day. He has traveled in the past in [place], [place] , [place], [facility], [place] and [place]. He has worked in the past at [employer]. Past Drug Use History: None Reported - Past Family History Father Family Medical History: Coronary Artery Disease (CAD) Additional Family Medical History / Comment(s): Father at 76yrs from heart problems. Mother Family Medical History: No Reported History Additional Family Medical History / Comment(s): Mother at the age of 92 yrs. She had varicose veins Brother(s) Family Medical History: Cancer Additional Family Medical History / Comment(s): LIVER CA. BLOOD CLOT. Medications and Allergies Home Medications Medication Instructions Recorded Confirmed Type Aspirin 81 mg PO DAILY 11/14/14 11/14/16 History Levothyroxine Sodium [Synthroid] 150 mcg PO DAILY 11/15/14 11/14/16 History Multivitamins, Thera [Multivitamin 1 tab PO DAILY@1200 10/06/16 11/14/16 History (formulary)] Warfarin [Coumadin] 5 mg PO DAILY 10/06/16 11/14/16 History Furosemide [Lasix] 40 mg PO DAILY PRN 11/14/16 11/14/16 History INSULIN LISPRO (humaLOG) [humaLOG See Protocol SQ ACHS 11/14/16 11/14/16 History (formulary)] Lovastatin [Mevacor] 40 mg PO HS 11/14/16 11/14/16 History Potassium Chloride ER [K-Dur 10] 10 meq PO DAILY PRN 11/14/16 11/14/16 History Allergies Allergy/AdvReac Type Severity Reaction Status Date / Time No Known Allergies Allergy Verified 11/14/16 08:47 Physical Exam Vitals: Vital Signs Temp Pulse Pulse Resp BP Pulse Ox 11/18/16 05:00 112 H 25 H 88/66 99 11/18/16 04:00 97.5 F L 103 H 115 H 21 88/66 99 11/18/16 03:00 109 H 21 89/63 100 11/18/16 02:00 98 23 88/59 98 11/18/16 01:00 117 H 29 H 75/56 95 11/18/16 00:00 97.8 F 112 H 115 H 45 H 82/62 96 11/17/16 23:00 105 H 21 78/61 96 11/17/16 22:46 129 H 22 78/61 95 11/17/16 22:00 99 25 H 91/61 98 11/17/16 21:00 107 H 24 93/64 95 11/17/16 20:54 104 H 11/17/16 20:39 103 H 11/17/16 20:00 97.6 F 110 H 115 H 30 H 84/67 95 11/17/16 19:00 107 H 26 H 84/67 95 11/17/16 18:00 109 H 16 91/61 94 L 11/17/16 17:11 105 H 11/17/16 17:00 95 21 91/61 11/17/16 16:55 101 H 11/17/16 16:00 106 H 115 H 21 85/59 94 L 11/17/16 15:00 110 H 17 87/68 93 L 11/17/16 14:00 121 H 37 H 85/60 11/17/16 13:00 99 17 97/60 94 L 11/17/16 12:00 108 H 115 H 28 H 77/61 95 11/17/16 11:26 107 H 11/17/16 11:16 103 H 11/17/16 11:00 101 H 15 78/56 96 11/17/16 10:00 109 H 22 80/63 97 11/17/16 09:00 117 H 20 80/64 95 11/17/16 08:00 97.8 F 123 H 115 H 20 80/64 95 11/17/16 07:49 106 H 11/17/16 07:00 123 H 20 92/57 93 L Intake and Output 11/17/16 11/17/16 11/18/16 14:59 22:59 06:59 Intake Total 948.04 961.08 140 Output Total 1180 1245 730 Balance -231.96 -283.92 -590 Intake: IV 448.04 241.08 140 Heparin Sodium,Porcine/ 288.04 81.08 D5w Pmx 25,000 unit In Dextrose/Water 1 500ml. bag @ 15 UNITS/KG/HR 32. 01 mls/hr IV .[id number] STEVAN Rx#:[id number] Sodium Chloride 0.9% 1, 160 160 140 000 ml @ 20 mls/hr IV . Q24H STEVAN Rx#:[id number] Intake, IV Titration 500 Amount Heparin Sodium,Porcine/ 500 D5w Pmx 25,000 unit In Dextrose/Water 1 500ml. bag @ 15 UNITS/KG/HR 32. 01 mls/hr IV .[id number] STEVAN Rx#:[id number] Oral 720 Output: Drainage 100 200 Medial MEGHAN Drain 100 200 Urine 1180 1145 530 Other: Voiding Method Urinal Indwelling Catheter Indwelling Catheter Weight 110.1 kg Patient Weight 11/18/16 06:59 Weight 110.1 kg Skin: Good color, texture, turgor. General: Obese and comfortable but fatigued appearance. Head: Normocephalic, atraumatic. Eyes: Symmetric. Pupils equal round. Ears: Symmetric. Hearing within normal limits. Mouth: Clear. Neck: Supple. Carotid without bruit. Cardiac: Regular rate and rhythm. Chest wound remains clean and dressed and still with harness. Lungs: Clear anteriorly and posteriorly. Abdomen: Soft active nontender overweight. Extremities: Normal tone. 2+ edema forelegs and feet. Neurological: Mental status: Alert, cooperative, pleasant. Cranial nerves: Symmetric facial tone and trapezius. Motor: Able to elevate all limbs off the bed and active movement even distally. Sensation: Intact throughout. DTRs: Symmetric and equal throughout. Mobility: Not attempt to sit or stand is in ICU bed and is currently high height. Results CBC & Chem 7: 11/18/16 04:40 11/18/16 04:40 Labs: Abnormal Lab Results - Last 24 Hours (Table) 11/17/16 11/17/16 11/17/16 Range/Units 08:41 11:47 15:01 WBC (3.8-10.6) k/uL RBC (4.30-5.90) m/uL Hgb (13.0-17.5) gm/dL Hct (39.0-53.0) % MCH (25.0-35.0) pg MCHC (31.0-37.0) g/dL RDW (11.5-15.5) % Plt Count (150-450) k/uL Neutrophils # (1.3-7.7) k/uL PT (9.0-12.0) sec APTT (22.0-30.0) sec Sodium (137-145) mmol/L Potassium 3.2 L (3.5-5.1) mmol/L Chloride (98-107) mmol/L Carbon Dioxide (22-30) mmol/L BUN (9-20) mg/dL Glucose (74-99) mg/dL POC Glucose (mg/dL) 137 H 155 H (75-99) mg/dL Calcium (8.4-10.2) mg/dL Total Protein (6.3-8.2) g/dL Albumin (3.5-5.0) g/dL 11/17/16 11/17/16 11/17/16 Range/Units 16:45 19:56 20:38 WBC (3.8-10.6) k/uL RBC (4.30-5.90) m/uL Hgb (13.0-17.5) gm/dL Hct (39.0-53.0) % MCH (25.0-35.0) pg MCHC (31.0-37.0) g/dL RDW (11.5-15.5) % Plt Count (150-450) k/uL Neutrophils # (1.3-7.7) k/uL PT (9.0-12.0) sec APTT 53.0 H (22.0-30.0) sec Sodium (137-145) mmol/L Potassium 3.3 L (3.5-5.1) mmol/L Chloride (98-107) mmol/L Carbon Dioxide (22-30) mmol/L BUN (9-20) mg/dL Glucose (74-99) mg/dL POC Glucose (mg/dL) 180 H (75-99) mg/dL Calcium (8.4-10.2) mg/dL Total Protein (6.3-8.2) g/dL Albumin (3.5-5.0) g/dL 11/18/16 11/18/16 11/18/16 Range/Units 04:40 04:40 04:40 WBC 15.5 H (3.8-10.6) k/uL RBC 3.06 L (4.30-5.90) m/uL Hgb 7.4 L (13.0-17.5) gm/dL Hct 26.2 L (39.0-53.0) % MCH 24.1 L (25.0-35.0) pg MCHC 28.1 L (31.0-37.0) g/dL RDW 18.0 H (11.5-15.5) % Plt Count 456 H (150-450) k/uL Neutrophils # 13.2 H (1.3-7.7) k/uL PT 14.5 H (9.0-12.0) sec APTT 58.8 H (22.0-30.0) sec Sodium 134 L (137-145) mmol/L Potassium 3.3 L (3.5-5.1) mmol/L Chloride 90 L (98-107) mmol/L Carbon Dioxide 34 H (22-30) mmol/L BUN 47 H (9-20) mg/dL Glucose 118 H (74-99) mg/dL POC Glucose (mg/dL) (75-99) mg/dL Calcium 6.1 L* (8.4-10.2) mg/dL Total Protein 5.8 L (6.3-8.2) g/dL Albumin 2.3 L (3.5-5.0) g/dL Microbiology - Last 24 Hours (Table) 11/15/16 10:30 Gram Stain - Preliminary Pericardial Fluid Body Fluid Culture - Preliminary Sravani albicans 11/16/16 01:30 Urine Culture - Final Urine,Catheterized Assessment and Plan (1) Congestive heart failure due to valvular disease Status: Acute Plan: Pressure and: 1. Cardiac debility. 2. Acute on chronic congestive heart failure. 3. Right leg DVT. 4. History of recent right MVR and aVR. Comments and plan: At this time PT and OT are ongoing. Patient had recent positive rehab experience. We'll consider for inpatient rehab when more medically appropriate.
[2016-11-18] MEDS: POTASSIUM CHLORIDE ER 20 MEQ TAB.ER PO SCH ×2 (06:57→07:52)
[2016-11-18] MEDS: LEVOTHYROXINE 75 MCG TAB PO SCH (06:57)
[2016-11-18] MEDS: IPRATROPIUM-ALBUTEROL 3 ML NEB INHALATION SCH ×4 (07:36→19:54)
[2016-11-18 07:49] LABS: Glucose,Whole Blood 127 mg/dL (75-99)
[2016-11-18] MEDS: INSULIN LISPRO (humaLOG) 300 UNIT/3 ML VIAL SQ SCH ×4 (07:52→21:21)
[2016-11-18] MEDS: PANTOPRAZOLE 40 MG TABLET PO SCH (07:52)
[2016-11-18] MEDS: PIPERACILLIN-TAZOBACTAM 3.375 GM in DEXTROSE/WATER 1 50ML.BAG IVPB SCH ×4 (07:54→23:55)
--- NOTE | 2016-11-18 08:01 | XR ---
EXAMINATION TYPE: XR chest 1V portable DATE OF EXAM: 11/18/2016 7:27 AM COMPARISON: 11/17/2016 HISTORY: Shortness of breath TECHNIQUE: Frontal and lateral views of the chest are obtained. FINDINGS: Scattered airspace infiltrates persist. There is cardiomegaly with pulmonary venous congestion. Bilat eral effusions persist. IMPRESSION: 1. Stable chest.
[2016-11-18] MEDS: FUROSEMIDE 10 MG/ML 4 ML VIAL IV SCH (08:50)
[2016-11-18] MEDS: METOLAZONE 2.5 MG TAB PO SCH (08:50)
[2016-11-18] MEDS: AMIODARONE 200 MG TAB PO SCH (08:51)
[2016-11-18] MEDS: ASPIRIN 81 MG CHEW PO SCH (08:51)
[2016-11-18] MEDS: METOPROLOL TARTRATE 25 MG TAB PO SCH ×3 (08:52→21:22)
[2016-11-18] MEDS ORDERED: CALCIUM GLUCONATE 2,000 MG in SODIUM CHLORIDE 0.9% 100 ML IVPB ONE (10:00)
--- NOTE | 2016-11-18 10:17 | CONS ---
DATE OF CONSULTATION: 11/17/2016 The patient was transferred from the ICU in the [facility]. In summary, this is a gentleman who on September 23 had JAYDE and a cardiac catheterization that showed ruptured chordae tendineae with mitral regurgitation and history of heart failure and paroxysmal atrial fibrillation. He underwent atrial valve replacement with a Bovine mitral valve repair and his lymph node biopsy on the mediastinum showed histoplasmosis and he was treated with itraconazole. He has had postoperative atrial fibrillation, has been treated with amiodarone. He has had pleural effusions and thoracentesis performed. He was in inpatient rehab under the care of Dr. Christina when he started with increased shortness of breath and edema and was transferred to the ICU in [facility]. He was found to be in A. fib with RVR and heart failure. He underwent thoracentesis with removal of 1.6 L of fluid from the right chest and then transferred to [facility]. He is sitting comfortably in bed. His is next to him. He remains in atrial fibrillation. His blood pressure is low normal. A chest x-ray shows bilateral pleural effusions and a likely loculated effusion and there is no plans of thoracentesis at this time. He is back on anticoagulation with Coumadin and he is also on IV Lasix. White count is 15,000. INR is 1.4. Blood pressure 78/56 mmHg. Pulse rate is in the 70s. Breath sounds are reduced bilaterally, especially at both bases. Heart sounds are irregular, systolic murmur. Abdomen is soft. IMPRESSION: 1. Valvular heart disease. 2. Recurrent thoracentesis following surgery. 3. Acute on chronic congestive heart failure. 4. Atrial fibrillation, persistent and history of histoplasmosis. SUGGEST: Continue oral amiodarone, continue IV Lasix. Continue heparin until INR is therapeutic. I increased the dose of metoprolol to 25 mg 3 times a day. His blood pressure is usually low and runs in the 90s and therefore, hopefully will be able to tolerate slightly higher dose of metoprolol and continue IV antibiotics.
--- NOTE | 2016-11-18 10:36 | PN ---
DATE OF SERVICE: 11/17/2016 ATTENDING NOTE: This patient was seen and examined by me yesterday. I reviewed the note of my nurse practitioner, Ms. Murray. Discussed and agree with the same. Patient is in the ICU. is at the bedside. Did tolerate his breakfast. Remains in atrial fibrillation. On examination, afebrile blood pressure 97/60, pulse ox 94% on 6 L. GENERAL APPEARANCE: Sitting up, awake. RESPIRATORY: Effort increased. LUNGS: Decreased breath sounds. CARDIOVASCULAR: Distant heart sounds. Significant edema present. INVESTIGATIONS: Noted. Chest x-ray shows some venous prominence. Gram stain showing some Sravani albicans. ASSESSMENT: 1. Acute on chronic congestive heart failure exacerbation from diastolic dysfunction; ejection fraction 55% to 60%. 2. Persistent atrial fibrillation, on IV heparin. 3. Sravani albicans in the body fluid per Dr. Ramos felt to be colonization. PLAN: Continue current medication and treatment plan. Antibiotics are to continue. Will follow.
[2016-11-18] MEDS: HEPARIN SODIUM,PORCINE/D5W PMX 25,000 UNIT in DEXTROSE/WATER 1 500ML.BAG IV SCH ×2 (11:04→23:55)
--- NOTE | 2016-11-18 11:20 | P.PN ---
<Charisse Croft - Last Filed: 11/18/16 11:10> Subjective Principal diagnosis: POD #53 aortic valve replacement, mitral valve repair, mediastinal lymph node biopsy. POD #33 muscle flap closure after sternal wound dehiscence. Paroxysmal atrial fibrillation currently treated with amiodarone and Coumadin Currently sitting up in bed in no apparent distress. Remains in A. fib with RVR. Lopressor increased by cardiology. Preliminary results for fluid culture sent from MEGHAN drainage is positive for mine albicans, Dr. Ramos is aware. Objective - Vital Signs Vital signs: Vital Signs Temp 97.6 F 11/18/16 08:00 Pulse 121 H 11/18/16 11:00 Resp 16 11/18/16 11:00 BP 94/65 11/18/16 11:00 Pulse Ox 93 L 11/18/16 11:00 Intake & Output 11/17/16 11/18/16 11/18/16 18:59 06:59 18:59 Intake Total 1109.12 960 1197.126 Output Total 1675 1605 1035 Balance -565.88 -645 162.126 Weight 110.1 kg Intake: IV 609.12 240 250 Calcium Gluconate 2,000 100 mg In Sodium Chloride 0.9 % 100 ml @ 100 mls/hr IVPB ONCE ONE Rx#: [id number] Heparin Sodium,Porcine/ 369.12 D5w Pmx 25,000 unit In Dextrose/Water 1 500ml. bag @ 15 UNITS/KG/HR 32. 01 mls/hr IV .[id number] [facility] Rx#:[id number] Piperacillin-Tazobactam 3 50 .375 gm In Dextrose/Water 1 50ml.bag @ 12.5 mls/hr IVPB Q8HR [facility] Rx#: [id number] Sodium Chloride 0.9% 1, 240 240 100 000 ml @ 20 mls/hr IV . Q24H [facility] Rx#:[id number] Intake, IV Titration 500 467.126 Amount Heparin Sodium,Porcine/ 500 467.126 D5w Pmx 25,000 unit In Dextrose/Water 1 500ml. bag @ 15 UNITS/KG/HR 32. 01 mls/hr IV .[id number] [facility] Rx#:[id number] Oral 720 480 Output: Drainage 300 115 Medial MEGHAN Drain 300 100 Right Lateral MEGHAN Drain 15 Urine 1675 1305 920 Other: Voiding Method Urinal Indwelling Catheter Indwelling Catheter - Constitutional General appearance: Present: cooperative, obese - Respiratory Details: Lungs sounds was bilaterally. Respirations even, nonlabored. Currently on 6 L high flow oxygen with saturation 95%. Able to achieve 500 mL on his incentive spirometer. Effective cough. - Cardiovascular Details: S1, S2 present. Irregular, tachycardia rate and rhythm, A. fib with RVR on telemetry. Bilateral lower extremity edema present. Heart hugger has been removed. Teds/SCDs in place - Gastrointestinal Gastrointestinal Comment(s): Abdomen soft, nondistended, non-tender. Active bowel sounds 4 quadrants. Tolerating diet. - Genitourinary Genitourinary Comment(s): Duong present draining clear, yellow urine. Approximately 75-125 mL per hour overnight. - Integumentary Integumentary Comment(s): Anterior chest incision well approximated with intact yoli. Covered with dry dressing. Right and left MEGHAN drains with no documented output in 24 hours, middle MEGHAN drain with 200 mL output overnight. - Musculoskeletal Musculoskeletal: Present: generalized weakness - Psychiatric Psychiatric: Present: A&O x's 3, appropriate affect, intact judgment & insight - Allied health notes Allied health notes reviewed: nursing - Labs CBC & Chem 7: 11/18/16 04:40 11/18/16 04:40 Labs: Abnormal Lab Results - Last 24 Hours (Table) 11/17/16 11/17/16 11/17/16 Range/Units 11:47 15:01 16:45 WBC (3.8-10.6) k/uL RBC (4.30-5.90) m/uL Hgb (13.0-17.5) gm/dL Hct (39.0-53.0) % MCH (25.0-35.0) pg MCHC (31.0-37.0) g/dL RDW (11.5-15.5) % Plt Count (150-450) k/uL Neutrophils # (1.3-7.7) k/uL PT (9.0-12.0) sec APTT 53.0 H (22.0-30.0) sec Sodium (137-145) mmol/L Potassium 3.2 L (3.5-5.1) mmol/L Chloride (98-107) mmol/L Carbon Dioxide (22-30) mmol/L BUN (9-20) mg/dL Glucose (74-99) mg/dL POC Glucose (mg/dL) 155 H (75-99) mg/dL Calcium (8.4-10.2) mg/dL Total Protein (6.3-8.2) g/dL Albumin (3.5-5.0) g/dL 11/17/16 11/17/16 11/18/16 Range/Units 19:56 20:38 04:40 WBC 15.5 H (3.8-10.6) k/uL RBC 3.06 L (4.30-5.90) m/uL Hgb 7.4 L (13.0-17.5) gm/dL Hct 26.2 L (39.0-53.0) % MCH 24.1 L (25.0-35.0) pg MCHC 28.1 L (31.0-37.0) g/dL RDW 18.0 H (11.5-15.5) % Plt Count 456 H (150-450) k/uL Neutrophils # 13.2 H (1.3-7.7) k/uL PT (9.0-12.0) sec APTT (22.0-30.0) sec Sodium (137-145) mmol/L Potassium 3.3 L (3.5-5.1) mmol/L Chloride (98-107) mmol/L Carbon Dioxide (22-30) mmol/L BUN (9-20) mg/dL Glucose (74-99) mg/dL POC Glucose (mg/dL) 180 H (75-99) mg/dL Calcium (8.4-10.2) mg/dL Total Protein (6.3-8.2) g/dL Albumin (3.5-5.0) g/dL 11/18/16 11/18/16 11/18/16 Range/Units 04:40 04:40 07:47 WBC (3.8-10.6) k/uL RBC (4.30-5.90) m/uL Hgb (13.0-17.5) gm/dL Hct (39.0-53.0) % MCH (25.0-35.0) pg MCHC (31.0-37.0) g/dL RDW (11.5-15.5) % Plt Count (150-450) k/uL Neutrophils # (1.3-7.7) k/uL PT 14.5 H (9.0-12.0) sec APTT 58.8 H (22.0-30.0) sec Sodium 134 L (137-145) mmol/L Potassium 3.3 L (3.5-5.1) mmol/L Chloride 90 L (98-107) mmol/L Carbon Dioxide 34 H (22-30) mmol/L BUN 47 H (9-20) mg/dL Glucose 118 H (74-99) mg/dL POC Glucose (mg/dL) 127 H (75-99) mg/dL Calcium 6.1 L* (8.4-10.2) mg/dL Total Protein 5.8 L (6.3-8.2) g/dL Albumin 2.3 L (3.5-5.0) g/dL Microbiology - Last 24 Hours (Table) 11/15/16 10:30 Gram Stain - Preliminary Pericardial Fluid Body Fluid Culture - Preliminary Mine albicans 11/16/16 01:30 Urine Culture - Final Urine,Catheterized - Imaging and Cardiology Chest x-ray: image reviewed Assessment and Plan (1) Congestive heart failure Status: Acute (2) Hypercholesterolemia Status: Acute (3) Hypertension Status: Acute (4) Hypothyroidism (acquired) Status: Acute (5) Obesity Status: Acute (6) Paroxysmal a-fib Status: Acute (7) Status post aortic valve replacement Status: Acute (8) Status post mitral valve repair Status: Acute Plan: 1. Continue aspirin, amiodarone, Lopressor, Lasix, Zaroxolyn. 2. Body fluid culture from MEGHAN drains sent, preliminarily demonstrating Mine albicans. Will follow final culture results. Antibiotics per pulmonology/ID. 3. Wean O2 as tolerated. Encourage incentive spirometry use. 4. Medical comorbidities to be managed by internal medicine. 5. Encourage increased activity. Physical therapy to follow 6. No indication for cardiothoracic surgical intervention at this time. 7. Will continue to monitor, recommendations based on patient's progress. Time with Patient: Greater than 30 <Brant Crawford - Last Filed: 11/19/16 17:32> Objective - Vital Signs Vital signs: Vital Signs Temp 97.4 F L 11/19/16 12:00 Pulse 123 H 11/19/16 16:38 Resp 20 11/19/16 16:38 BP 118/65 11/19/16 16:38 Pulse Ox 94 L 11/19/16 16:38 Intake & Output 11/18/16 11/19/16 11/19/16 18:59 06:59 18:59 Intake Total 1777.126 992.500 30 Output Total 1980 1050 1810 Balance -202.874 -57.500 -1780 Weight 110.1 kg Intake: IV 350 132.5 30 0.9 NS 40 70 30 Calcium Gluconate 2,000 100 mg In Sodium Chloride 0.9 % 100 ml @ 100 mls/hr IVPB ONCE ONE Rx#: [id number] Piperacillin-Tazobactam 3 70 62.5 .375 gm In Dextrose/Water 1 50ml.bag @ 12.5 mls/hr IVPB Q8HR [facility] Rx#: [id number] Sodium Chloride 0.9% 1, 140 000 ml @ 20 mls/hr IV . Q24H [facility] Rx#:[id number] Intake, IV Titration 467.126 500.000 Amount Heparin Sodium,Porcine/ 467.126 500.000 D5w Pmx 25,000 unit In Dextrose/Water 1 500ml. bag @ 15 UNITS/KG/HR 32. 01 mls/hr IV .[id number] [facility] Rx#:[id number] Oral 960 360 Output: Drainage 160 170 110 Medial MEGHAN Drain 145 140 110 Right Lateral MEGHAN Drain 15 30 Urine 2786 891 6129 Other: Voiding Method Indwelling Catheter Indwelling Catheter Indwelling Catheter # Bowel Movements 1 - Labs CBC & Chem 7: 11/19/16 04:18 11/19/16 04:18 Labs: Abnormal Lab Results - Last 24 Hours (Table) 11/18/16 11/18/16 11/19/16 Range/Units 17:29 21:19 04:18 WBC 14.8 H (3.8-10.6) k/uL RBC 3.06 L (4.30-5.90) m/uL Hgb 7.5 L (13.0-17.5) gm/dL Hct 26.1 L (39.0-53.0) % MCH 24.6 L (25.0-35.0) pg MCHC 28.9 L (31.0-37.0) g/dL RDW 18.2 H (11.5-15.5) % Plt Count 514 H (150-450) k/uL Neutrophils # 12.3 H (1.3-7.7) k/uL PT (9.0-12.0) sec APTT (22.0-30.0) sec Sodium (137-145) mmol/L Chloride (98-107) mmol/L Carbon Dioxide (22-30) mmol/L BUN (9-20) mg/dL Glucose (74-99) mg/dL POC Glucose (mg/dL) 195 H 113 H (75-99) mg/dL Calcium (8.4-10.2) mg/dL Total Protein (6.3-8.2) g/dL Albumin (3.5-5.0) g/dL 11/19/16 11/19/16 11/19/16 Range/Units 04:18 04:18 07:45 WBC (3.8-10.6) k/uL RBC (4.30-5.90) m/uL Hgb (13.0-17.5) gm/dL Hct (39.0-53.0) % MCH (25.0-35.0) pg MCHC (31.0-37.0) g/dL RDW (11.5-15.5) % Plt Count (150-450) k/uL Neutrophils # (1.3-7.7) k/uL PT 18.9 H (9.0-12.0) sec APTT 73.2 H (22.0-30.0) sec Sodium 133 L (137-145) mmol/L Chloride 90 L (98-107) mmol/L Carbon Dioxide 33 H (22-30) mmol/L BUN 44 H (9-20) mg/dL Glucose 100 H (74-99) mg/dL POC Glucose (mg/dL) 119 H (75-99) mg/dL Calcium 6.8 L (8.4-10.2) mg/dL Total Protein 5.8 L (6.3-8.2) g/dL Albumin 2.3 L (3.5-5.0) g/dL 11/19/16 11/19/16 Range/Units 12:22 16:35 WBC (3.8-10.6) k/uL RBC (4.30-5.90) m/uL Hgb (13.0-17.5) gm/dL Hct (39.0-53.0) % MCH (25.0-35.0) pg MCHC (31.0-37.0) g/dL RDW (11.5-15.5) % Plt Count (150-450) k/uL Neutrophils # (1.3-7.7) k/uL PT (9.0-12.0) sec APTT (22.0-30.0) sec Sodium (137-145) mmol/L Chloride (98-107) mmol/L Carbon Dioxide (22-30) mmol/L BUN (9-20) mg/dL Glucose (74-99) mg/dL POC Glucose (mg/dL) 178 H 110 H (75-99) mg/dL Calcium (8.4-10.2) mg/dL Total Protein (6.3-8.2) g/dL Albumin (3.5-5.0) g/dL Microbiology - Last 24 Hours (Table) 11/15/16 10:30 Gram Stain - Final Pericardial Fluid Body Fluid Culture - Final Mine albicans Assessment and Plan Plan: The patient was seen and examined. I agree with the above assessment and plan. We'll continue her MEGHAN drains to bulb suction. He is on antibiotics as directed by infectious disease. Additional care as directed by the primary service.
--- NOTE | 2016-11-18 11:45 | P.PN ---
Subjective Principal diagnosis: Pulmonary edema and bilateral pleural effusions, atrial fibrillation with RVR. 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 Patient was eventually discharged home after a relatively prolonged hospital course, patient was readmitted on October 06 through October 30 with increased shortness of breath, and he was found to have congestive heart failure, sterility 1 dehiscence requiring sternal exploration and debridement and wound closure with bilateral pectoralis muscle flaps. During that admission , patient also required left sided chest tube placement, right sided thoracentesis, patient was eventually extubated, and transferred to rehab at [facility] under the care of Dr. Reyes. However after few days, patient developed congestive heart failure, worsening pleural effusion requiring thoracentesis again, loculated pleural effusion on the right side was noted based on ultrasound and CT of the chest, there was some purulence noted in his MEGHAN drains which are mediastinal drains, hence arrangements were made to transfer the patient back to [facility]. Patient was initially admitted to the intensive care unit, placed on broad-spectrum antibiotics, he is on heparin drip, and his last hospitalization while at [facility], his sputum was positive for Haemophilus influenza and Serratia marcescens. At any rate patient is to be seen by many consultants during this transfer, and I was asked to see him on consultation today. Patient was placed back on his usual medications, diuretics, I reviewed her chest x-ray, and I felt that the patient has bilateral pleural effusions, small at this point, will not require thoracentesis at least not for now. Patient was reevaluated today on 11/16/2016, breathing a bit easier, however the patient is requiring levo fed for low blood pressure. Remains in atrial fibrillation, but rate seems to be better controlled today. Remains on antibiotics for presumptive infectious process, however cultures have been negative so far. Chest x-ray continues to show bilateral pleural effusions and congestive heart failure changes. Lasix is presently on hold. Since the blood pressure was marginal earlier today requiring transferring back to the ICU. Patient was reevaluated today on 11/17/2016, clinically the patient seems to be doing much better, breathing a lot easier. Blood pressure remains marginal. Chest x-ray is showing some congestive heart failure changes, bilateral pleural effusions, ultrasound on the chest showed loculated pleural effusion, the amount of the fluid on both lungs are small, and not much to consider safe thoracentesis. Hence no plans to do thoracentesis at this point mostly because of the fluid is loculated and because the size of the fluid is rather small smaller on the right than on the left. Patient was placed back on Coumadin, hence we will continue with the Coumadin for anticoagulation. Given a dose of Lasix this morning, 40 mg IV push, and we'll likely continue on a daily basis depending and is on his overall clinical condition. Patient is feeling again much better today, less short of breath. And he seems to be quite appropriate. Labs showed WBC count of 15 hemoglobin of 7.1. INR is 1.4. Electrolytes showed low potassium of 3.1 BUN is 53 creatinine is 1.17. Hence will be cautious with diuretics. On 11/18/2016, patient seems to be doing a bit better, less shortness of breath, chest x-ray is showing less congestive heart failure, his atrial fibrillation seems to be better controlled, however his blood pressure is marginal, mean is in the low 60s. Urine output is excellent. All his labs were reviewed. Hemoglobin is 7.4 unchanged. WBC count is 15.5. PTT is 59. Electrolytes are normal except for low potassium of 3.3 BUN is 47 creatinine is 1.06. Patient remains on 1 Lasix dose daily. And that seems to be working well for him. It is 40 mg IV push every morning. Chest x-ray from today was reviewed showing improvement. Ultrasound which was done yesterday was also reviewed, and the patient clearly does not need thoracentesis at this point. Objective - Vital Signs Vital signs: Vital Signs Temp 97.6 F 11/18/16 08:00 Pulse 110 H 11/18/16 11:41 Resp 16 11/18/16 11:00 BP 94/65 11/18/16 11:00 Pulse Ox 93 L 11/18/16 11:00 Intake & Output 11/17/16 11/18/16 11/18/16 18:59 06:59 18:59 Intake Total 1109.12 960 1197.126 Output Total 1675 1605 1035 Balance -565.88 -645 162.126 Weight 110.1 kg Intake: IV 609.12 240 250 Calcium Gluconate 2,000 100 mg In Sodium Chloride 0.9 % 100 ml @ 100 mls/hr IVPB ONCE ONE Rx#: [id number] Heparin Sodium,Porcine/ 369.12 D5w Pmx 25,000 unit In Dextrose/Water 1 500ml. bag @ 15 UNITS/KG/HR 32. 01 mls/hr IV .[id number] [facility] Rx#:[id number] Piperacillin-Tazobactam 3 50 .375 gm In Dextrose/Water 1 50ml.bag @ 12.5 mls/hr IVPB Q8HR [facility] Rx#: [id number] Sodium Chloride 0.9% 1, 240 240 100 000 ml @ 20 mls/hr IV . Q24H [facility] Rx#:[id number] Intake, IV Titration 500 467.126 Amount Heparin Sodium,Porcine/ 500 467.126 D5w Pmx 25,000 unit In Dextrose/Water 1 500ml. bag @ 15 UNITS/KG/HR 32. 01 mls/hr IV .[id number] [facility] Rx#:[id number] Oral 720 480 Output: Drainage 300 115 Medial MEGHAN Drain 300 100 Right Lateral MEGHAN Drain 15 Urine 1675 1305 920 Other: Voiding Method Urinal Indwelling Catheter Indwelling Catheter - Exam Physical Exam: Revealed a 71-year-old white male, cachectic, pale looking, not in respiratory distress HEENT:[Neck ithroughout, nos supple.] [No neck masses.] [No thyromegaly.] [No JVD.] Chest: [Diminished breath sounds and crackles at the bases were noted. No rhonchi no wheezes.] Cardiac Exam: [Irregular irregular rhythm, dressing on sternal wound is noted, MEGHAN drains 2 were noted. Abdomen: [Soft, nontender, no megaly, no rebound, no guarding, normal bowel sounds.] Extremities: [No clubbing, 3+ bipedal edema, no cyanosis.] Neurological Exam: [No focal neurologic deficit.] - Labs CBC & Chem 7: 11/18/16 04:40 11/18/16 04:40 Labs: Abnormal Lab Results - Last 24 Hours (Table) 11/17/16 11/17/16 11/17/16 Range/Units 11:47 15:01 16:45 WBC (3.8-10.6) k/uL RBC (4.30-5.90) m/uL Hgb (13.0-17.5) gm/dL Hct (39.0-53.0) % MCH (25.0-35.0) pg MCHC (31.0-37.0) g/dL RDW (11.5-15.5) % Plt Count (150-450) k/uL Neutrophils # (1.3-7.7) k/uL PT (9.0-12.0) sec APTT 53.0 H (22.0-30.0) sec Sodium (137-145) mmol/L Potassium 3.2 L (3.5-5.1) mmol/L Chloride (98-107) mmol/L Carbon Dioxide (22-30) mmol/L BUN (9-20) mg/dL Glucose (74-99) mg/dL POC Glucose (mg/dL) 155 H (75-99) mg/dL Calcium (8.4-10.2) mg/dL Total Protein (6.3-8.2) g/dL Albumin (3.5-5.0) g/dL 11/17/16 11/17/16 11/18/16 Range/Units 19:56 20:38 04:40 WBC 15.5 H (3.8-10.6) k/uL RBC 3.06 L (4.30-5.90) m/uL Hgb 7.4 L (13.0-17.5) gm/dL Hct 26.2 L (39.0-53.0) % MCH 24.1 L (25.0-35.0) pg MCHC 28.1 L (31.0-37.0) g/dL RDW 18.0 H (11.5-15.5) % Plt Count 456 H (150-450) k/uL Neutrophils # 13.2 H (1.3-7.7) k/uL PT (9.0-12.0) sec APTT (22.0-30.0) sec Sodium (137-145) mmol/L Potassium 3.3 L (3.5-5.1) mmol/L Chloride (98-107) mmol/L Carbon Dioxide (22-30) mmol/L BUN (9-20) mg/dL Glucose (74-99) mg/dL POC Glucose (mg/dL) 180 H (75-99) mg/dL Calcium (8.4-10.2) mg/dL Total Protein (6.3-8.2) g/dL Albumin (3.5-5.0) g/dL 11/18/16 11/18/16 11/18/16 Range/Units 04:40 04:40 07:47 WBC (3.8-10.6) k/uL RBC (4.30-5.90) m/uL Hgb (13.0-17.5) gm/dL Hct (39.0-53.0) % MCH (25.0-35.0) pg MCHC (31.0-37.0) g/dL RDW (11.5-15.5) % Plt Count (150-450) k/uL Neutrophils # (1.3-7.7) k/uL PT 14.5 H (9.0-12.0) sec APTT 58.8 H (22.0-30.0) sec Sodium 134 L (137-145) mmol/L Potassium 3.3 L (3.5-5.1) mmol/L Chloride 90 L (98-107) mmol/L Carbon Dioxide 34 H (22-30) mmol/L BUN 47 H (9-20) mg/dL Glucose 118 H (74-99) mg/dL POC Glucose (mg/dL) 127 H (75-99) mg/dL Calcium 6.1 L* (8.4-10.2) mg/dL Total Protein 5.8 L (6.3-8.2) g/dL Albumin 2.3 L (3.5-5.0) g/dL Microbiology - Last 24 Hours (Table) 11/15/16 10:30 Gram Stain - Preliminary Pericardial Fluid Body Fluid Culture - Preliminary Sravani albicans 11/16/16 01:30 Urine Culture - Final Urine,Catheterized Assessment and Plan Plan: Impression: 1 acute on chronic congestive heart failure secondary to diastolic dysfunction and possibly some component of LV dysfunction based on the echocardiogram. 2 recent aortic valve replacement and mitral valve repair. 3 recent sternal wound dehiscence requiring pectoralis muscle flap. 4 history of coronary artery disease and previous CABG. 5 acute hypoxic respiratory failure secondary to congestive heart failure, and bilateral pleural effusions. 6 persistent atrial fibrillation with variable rate, patient remains on IV heparin. 7 history of pleural effusions requiring thoracentesis 2 on the right side. Follow-up ultrasound of the chest today showed small amount of fluid on both sides, the fluid is loculated, and safety thoracentesis cannot be done. Hence no plans to tap the patient today mostly because of the size is small, not to mention the fluid is loculated in both sides. 8 moderate severe pulmonary hypertension. 9 history of chronic histoplasmosis. 10 history of degenerative joint disease. 11 history of GERD without esophagitis. 12 history of hypothyroidism. 13 history of coronary artery disease and previous CABG. Recommendation: Continue present treatment plan including diuretics, antibiotics , antimicrobial therapy as advised by infectious disease. Patient will be kept in the ICU today, and we will continue to follow. Patient can be transferred in the next 24 hours to a monitor bed on selective. Time with Patient: Less than 30
--- NOTE | 2016-11-18 12:19 | CDI ---
In responding to this query, please exercise your independent professional judgment. The [facility] Coding Staff and Clinical Documentation Specialists appreciate your assistance in clarifying documentation, maintaining compliance with coding guidelines, accurately documenting patients condition and capturing severity of illness. The fact that a question is asked does not imply that any particular answer is desired or expected. Communication forms are a method of clarifying documentation and are not made part of the Legal Health Record. Thank you in advance for your clarification Last Revision, August 2015 [facility] [address] [place] [address] Documentation Clarification Form Date: 11/18/2016 12:03:00 PM From: Radha Cottrell CCS, CCDS Admit Date: 11/13/2016 7:30:00 PM Patient Name: Jn Stevenson Visit Number: [id number] Discharge Date: Dr. Alcon Dillon: 71 yo male, transfer from [facility], admitted there for Inpatient Rehab following AVR at [facility] nwith complicated postop course including wound dehiscence requiring surgical flap. Also required thoracentesis for pleural effusions. Transferred to [facility] on 11/13 with SOB, acute hypoxic respiratory failure and persistent atrial fibrillation. Patient history: Chronic diastolic CHF, Hypertension, Obesity, pneumonia, AVR. Clinical Indicators: 11/16/16 01:19 - Nurse Note. Pt arrived in treatment room on ICU from [facility] for elevated lactic acid of 4.[address] Gaffney for ICU consult, 500 cc bolus initiated prior to transfer due to dx of CHF, no additional fluid resuscitation ordered, Orders given to start Norepinephrine if BP remains low after bolus is finished, dennis inserted, Pt is ANO3, following commands, no c/o SOB or chest pain, notable tremors present as documented prior to transfer. Vitals: T 96.0, P 113 (irregular, weak), R 27, BP 79/63, PO 91 6Lnc Treatment: IV Lasix, IV Calcium gluconate, High flow O2 6Lnc, IV Heparin, IV Zosyn, IV fluid bolus, Levophed drip per 11/16 CVAS progress note. In your professional opinion, can you please specify the type of shock if known ? Septic Shock o Suspected or known causative organism o Any associated organ failure Cardiogenic Shock o Cause Hypovolemic Shock o Cause Other, please specify Unable to determine Please document in your progress notes and discharge summary in order to capture severity of illness and risk of mortality. Include clinical findings that support your diagnosis. FYI: Press F11 to launch patient chart. Place X here if this finding has no clinical significance, is not applicable or if you are not able to provide any additional documentation. Thank You. WILSON
[2016-11-18 12:26] LABS: Glucose,Whole Blood 121 mg/dL (75-99)
--- NOTE | 2016-11-18 13:22 | PN ---
Mr. Stevenson is sitting up in a chair. He has bilateral pleural effusions. He has had valvular heart disease, status post valve surgery. He is afebrile with RVR. His heart rate is 110 to 120 beats a minute. He remains in atrial fibrillation. Heart sounds S1, S2 are tachycardiac. Breath sounds are reduced especially at the bases. ( ) His blood pressure is between 80 and 95 mmHg. SUGGEST: Continue low-dose beta ismael and continue amiodarone.
[2016-11-18] MEDS: MULTIVITAMINS, THERA 1 EACH TAB PO SCH (13:35)
[2016-11-18] MEDS ORDERED: POTASSIUM CHLORIDE ER 20 MEQ TAB.ER PO STA (14:35)
[2016-11-18 17:31] LABS: Glucose,Whole Blood 195 mg/dL (75-99)
[2016-11-18] MEDS: WARFARIN 5 MG TAB PO SCH (17:49)
--- NOTE | 2016-11-18 20:38 | P.PN ---
Subjective Principal diagnosis: respiratory failure This is a 71-year-old male well known to ID service who came in the hospital on September 23 and underwent a JAYDE and heart catheterization showing a ruptured chordae tendonae, mitral regurgitation, moderate pulmonary hypertension , with history of paroxysmal atrial fibrillation and heart failure. 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 With this the patient was initiated to itraconazole. He however developed atrial fibrillation. Because of this he was initiated to amiodarone. The dose of itraconazole was reduced by 50%. There is no evidence of alteration of the QT interval while he was in hospital. He eventually was discharged home. It is related that he was not able to obtain the itraconazole. In this is going to be addressed in the coming days. However he returned to [facility] emergency center due to shortness of breath and was hospitalized October 06 through October 30 at which time he required intubation and mechanical ventilation. He was successfully extubated. He was treated for dehiscence of sternal wires requiring sternal exploration, debridement and wound closure with bilateral pectoralis major myocutaneous advanced flaps. He also required chest tube placement for left pleural effusion and right thoracentesis for right pleural effusion with drainage of 1.5 L of dark red tinged fluid. Muscle flap procedure was done on October 15. Patient was stabilized and then transferred to [facility] for inpatient rehab under the care of Dr. Christina. He developed increasing shortness of breath and edema and was eventually transferred to the intensive care unit where he was found to be in atrial fibrillation with rapid ventricular response and acute systolic heart failure and underwent thoracentesis with removal of 1.6 L on the right chest. Patient was treated in the intensive care unit until a bed was available at [facility] he was a direct transfer. Chest x-ray here shows developing pleural fluid collection along lateral right chest wall. Consults are in place with Dr. Gaffney, cardiovascular surgeon and cardiology. Patient has [address] with one showing some purulence for which a culture to be sent today. Patient has had some mild confusion since admission. He did receive extra dose of Lasix this morning. He has been afebrile. Patient is on heparin drip and amiodarone is oral. For antibiotics, patient is on Zosyn. Echocardiogram reveals EF 40-45%, normally functioning bioprosthetic valve, trace mitral regurgitation, mild tricuspid regurgitation. Sputum culture during his hospitalization of October 06 was positive for Haemophilus influenza and Serratia marcescens susceptible to Zosyn. Continues to show significant improvement. Voice is stronger. Sitting upright. Eating better. Less short of breath. Less sputum production. Working with PT and improving Objective - Vital Signs Vital signs: Vital Signs Temp 98.0 F 11/18/16 15:00 Pulse 112 H 11/18/16 20:09 Resp 21 11/18/16 19:00 BP 96/62 11/18/16 18:00 Pulse Ox 96 11/18/16 14:00 Intake & Output 11/18/16 11/18/16 11/19/16 06:59 18:59 06:59 Intake Total 960 1777.126 374.876 Output Total 1605 1980 100 Balance -645 -202.874 274.876 Weight 110.1 kg Intake: IV 240 350 10 0.9 NS 40 10 Calcium Gluconate 2,000 100 mg In Sodium Chloride 0.9 % 100 ml @ 100 mls/hr IVPB ONCE ONE Rx#: [id number] Piperacillin-Tazobactam 3 70 .375 gm In Dextrose/Water 1 50ml.bag @ 12.5 mls/hr IVPB Q8HR [facility] Rx#: [id number] Sodium Chloride 0.9% 1, 240 140 000 ml @ 20 mls/hr IV . Q24H [facility] Rx#:[id number] Intake, IV Titration 467.126 364.876 Amount Heparin Sodium,Porcine/ 467.126 364.876 D5w Pmx 25,000 unit In Dextrose/Water 1 500ml. bag @ 15 UNITS/KG/HR 32. 01 mls/hr IV .[id number] [facility] Rx#:[id number] Oral 720 960 Output: Drainage 300 160 Medial MEGHAN Drain 300 145 Right Lateral MEGHAN Drain 15 Urine 1305 1820 100 Other: Voiding Method Indwelling Catheter Indwelling Catheter - Exam This is a 71-year-old male. He appears comfortable lying in ICU bed. He does arouse to verbal stimuli and is able to follow simple commands and answer questions. Cardiac monitors atrial fibrillation with rapid ventricular response. HEENT: Head is atraumatic, normocephalic. Pupils equal, round. Sclerae is anicteric. Conjunctiva slightly pale. Mucous membranes of the mouth are dry. No thrush noted. NECK: Supple. No JVD. No lymphadenopathy. No thyromegaly. LUNGS: There are bibasal crackles. No significant bronchial sounds. MEGHAN drain to the right chest shows serous drainage small amount. MEGHAN drain to the midsternal area show serosanguineous with some yellow exudate. Left lateral MEGHAN drain with serous drainage. HEART: Irregular with no murmur Dressing on sternal wound and place. ABDOMEN: Distinctly distended. Bowel sounds are normal. Organomegaly is not detected. Abdomen is nontender. EXTREMITIES: +3 bilateral pedal edema. SCDs in place. NEUROLOGICAL: Awake and alert. Able to follow simple commands and answer questions. - Labs CBC & Chem 7: 11/18/16 04:40 11/18/16 18:57 Labs: Abnormal Lab Results - Last 24 Hours (Table) 11/17/16 11/17/16 11/18/16 Range/Units 19:56 20:38 04:40 WBC 15.5 H (3.8-10.6) k/uL RBC 3.06 L (4.30-5.90) m/uL Hgb 7.4 L (13.0-17.5) gm/dL Hct 26.2 L (39.0-53.0) % MCH 24.1 L (25.0-35.0) pg MCHC 28.1 L (31.0-37.0) g/dL RDW 18.0 H (11.5-15.5) % Plt Count 456 H (150-450) k/uL Neutrophils # 13.2 H (1.3-7.7) k/uL PT (9.0-12.0) sec APTT (22.0-30.0) sec Sodium (137-145) mmol/L Potassium 3.3 L (3.5-5.1) mmol/L Chloride (98-107) mmol/L Carbon Dioxide (22-30) mmol/L BUN (9-20) mg/dL Glucose (74-99) mg/dL POC Glucose (mg/dL) 180 H (75-99) mg/dL Calcium (8.4-10.2) mg/dL Total Protein (6.3-8.2) g/dL Albumin (3.5-5.0) g/dL 11/18/16 11/18/16 11/18/16 Range/Units 04:40 04:40 07:47 WBC (3.8-10.6) k/uL RBC (4.30-5.90) m/uL Hgb (13.0-17.5) gm/dL Hct (39.0-53.0) % MCH (25.0-35.0) pg MCHC (31.0-37.0) g/dL RDW (11.5-15.5) % Plt Count (150-450) k/uL Neutrophils # (1.3-7.7) k/uL PT 14.5 H (9.0-12.0) sec APTT 58.8 H (22.0-30.0) sec Sodium 134 L (137-145) mmol/L Potassium 3.3 L (3.5-5.1) mmol/L Chloride 90 L (98-107) mmol/L Carbon Dioxide 34 H (22-30) mmol/L BUN 47 H (9-20) mg/dL Glucose 118 H (74-99) mg/dL POC Glucose (mg/dL) 127 H (75-99) mg/dL Calcium 6.1 L* (8.4-10.2) mg/dL Total Protein 5.8 L (6.3-8.2) g/dL Albumin 2.3 L (3.5-5.0) g/dL 11/18/16 11/18/16 11/18/16 Range/Units 11:10 12:24 17:29 WBC (3.8-10.6) k/uL RBC (4.30-5.90) m/uL Hgb (13.0-17.5) gm/dL Hct (39.0-53.0) % MCH (25.0-35.0) pg MCHC (31.0-37.0) g/dL RDW (11.5-15.5) % Plt Count (150-450) k/uL Neutrophils # (1.3-7.7) k/uL PT (9.0-12.0) sec APTT (22.0-30.0) sec Sodium (137-145) mmol/L Potassium 3.2 L (3.5-5.1) mmol/L Chloride (98-107) mmol/L Carbon Dioxide (22-30) mmol/L BUN (9-20) mg/dL Glucose (74-99) mg/dL POC Glucose (mg/dL) 121 H 195 H (75-99) mg/dL Calcium (8.4-10.2) mg/dL Total Protein (6.3-8.2) g/dL Albumin (3.5-5.0) g/dL Laboratory Results WBC 15.5 k/uL (3.8-10.6) H 11/18/16 04:40 RBC 3.06 m/uL (4.30-5.90) L 11/18/16 04:40 Hgb 7.4 gm/dL (13.0-17.5) L 11/18/16 04:40 Hct 26.2 % (39.0-53.0) L 11/18/16 04:40 MCV 85.6 fL (80.0-100.0) 11/18/16 04:40 MCH 24.1 pg (25.0-35.0) L 11/18/16 04:40 MCHC 28.1 g/dL (31.0-37.0) L 11/18/16 04:40 RDW 18.0 % (11.5-15.5) H 11/18/16 04:40 Plt Count 456 k/uL (150-450) H 11/18/16 04:40 Neutrophils % 85 % 11/18/16 04:40 Neutrophils % (Manual) 86.0 % 11/15/16 04:18 Band Neutrophils % 1.0 % 11/15/16 04:18 Lymphocytes % 7 % 11/18/16 04:40 Lymphocytes % (Manual) 6.0 % 11/15/16 04:18 Monocytes % 5 % 11/18/16 04:40 Monocytes % (Manual) 7.0 % 11/15/16 04:18 Eosinophils % 1 % 11/18/16 04:40 Basophils % 0 % 11/18/16 04:40 Neutrophils # 13.2 k/uL (1.3-7.7) H 11/18/16 04:40 Neutrophils # (Manual) 12.9 k/uL (1.3-7.7) H 11/15/16 04:18 Lymphocytes # 1.1 k/uL (1.0-4.8) 11/18/16 04:40 Lymphocytes # (Manual) 0.9 k/uL (1.0-4.8) L 11/15/16 04:18 Monocytes # 0.8 k/uL (0-1.0) 11/18/16 04:40 Monocytes # (Manual) 1.0 k/uL (0-1.0) 11/15/16 04:18 Eosinophils # 0.1 k/uL (0-0.7) 11/18/16 04:40 Basophils # 0.0 k/uL (0-0.2) 11/18/16 04:40 Nucleated RBCs 1 /100 WBC (0-0) H 11/15/16 04:18 Manual Slide Review Performed 11/15/16 04:18 Polychromasia Present 11/15/16 04:18 Hypochromasia Marked 11/18/16 04:40 Hypochromasia (manual) Pres 11/15/16 04:18 Poikilocytosis Moderate 11/18/16 04:40 Anisocytosis Slight 11/18/16 04:40 Anisocytosis (manual) Present 11/15/16 04:18 Spherocytes Present 11/15/16 04:18 PT 14.5 sec (9.0-12.0) H 11/18/16 04:40 INR 1.5 (<1.1) 11/18/16 04:40 APTT 58.8 sec (22.0-30.0) H 11/18/16 04:40 Sodium 134 mmol/L (137-145) L 11/18/16 04:40 Potassium 3.7 mmol/L (3.5-5.1) 11/18/16 18:57 Chloride 90 mmol/L (98-107) L 11/18/16 04:40 Carbon Dioxide 34 mmol/L (22-30) H 11/18/16 04:40 Anion Gap 10 mmol/L 11/18/16 04:40 BUN 47 mg/dL (9-20) H 11/18/16 04:40 Creatinine 1.06 mg/dL (0.66-1.25) 11/18/16 04:40 Est GFR (MDRD) Af Amer >60 (>60 ml/min/1.73 sqM) 11/18/16 04:40 Est GFR (MDRD) Non-Af >60 (>60 ml/min/1.73 sqM) 11/18/16 04:40 Glucose 118 mg/dL (74-99) H 11/18/16 04:40 POC Glucose (mg/dL) 195 mg/dL (75-99) H 11/18/16 17:29 POC Glu Ordering Machine Operator ID Randee Cline 11/18/16 17:[address] Glu mg/dL 103 mg/dL 11/13/16 21:54 Hemoglobin A1c 5.2 % (4.2-6.1) 11/13/16 21:54 Plasma Lactic Acid Samir 1.7 mmol/L (0.7-2.0) 11/16/16 03:39 Calcium 6.1 mg/dL (8.4-10.2) L* 11/18/16 04:40 Phosphorus 3.9 mg/dL (2.5-4.5) 11/18/16 04:40 Magnesium 2.3 mg/dL (1.6-2.3) 11/18/16 04:40 Total Bilirubin 0.9 mg/dL (0.2-1.3) 11/18/16 04:40 AST 23 U/L (17-59) 11/18/16 04:40 ALT 31 U/L (21-72) 11/18/16 04:40 Alkaline Phosphatase 84 U/L (38-126) 11/18/16 04:40 NT-Pro-B Natriuret Pep 6900 pg/mL 11/18/16 04:30 Total Protein 5.8 g/dL (6.3-8.2) L 11/18/16 04:40 Albumin 2.3 g/dL (3.5-5.0) L 11/18/16 04:40 Free T4 1.58 ng/dL (0.78-2.19) 11/15/16 04:18 Thyroid Stim Immunoglob <0.10 IU/L (<0.10) 11/15/16 04:18 Urine Color Yellow 11/16/16 01:30 Urine Appearance Clear (Clear) 11/16/16 01:30 Urine pH 6.0 (5.0-8.0) 11/16/16 01:30 Ur Specific [place] 1.009 (1.001-1.035) 11/16/16 01:30 Urine Protein Negative (Negative) 11/16/16 01:30 Urine Glucose (UA) Negative (Negative) 11/16/16 01:30 Urine Ketones Negative (Negative) 11/16/16 01:30 Urine Blood Negative (Negative) 11/16/16 01:30 Urine Nitrite Negative (Negative) 11/16/16 01:30 Urine Bilirubin Negative (Negative) 11/16/16 01:30 Urine Urobilinogen <2.0 mg/dL (<2.0) 11/16/16 01:30 Ur Leukocyte Esterase Negative (Negative) 11/16/16 01:30 Microbiology 11/15/16 10:30 Pericardial Fluid Gram Stain - Preliminary 11/15/16 10:30 Pericardial Fluid Body Fluid Culture - Preliminary Sravani albicans 11/16/16 01:30 Urine,Catheterized Urine Culture - Final Assessment and Plan (1) Acute respiratory failure Narrative/Plan: He has not the patient decompensated last evening. He became more tachypneic and tachycardic and her relative hypotension. Also mild increase of his lactic acid. This is almost resolved. He was transferred to the intensive care unit is feeling better. His speech is getting stronger. Was able to self feed his entire dinner without difficulties later in the day. And has no other new acute complaints. Continue supportive care. Current thoracic is following with no plans for any surgical intervention. The patient's MEGHAN drain was cultured and show some Sravani. This colonization of the drain out of the patient. He does not require any specific therapy. Especially since he is so clinically improved at this point in time. Improving leukocytosis improving fevers improving strength. Not likely to have a deep-seated Sravani infection at this time. Currently receiving Zosyn therapy which is allowed a rapid improvement. We'll plan 7 days course of therapy. Status: Acute
[2016-11-18 21:21] LABS: Glucose,Whole Blood 113 mg/dL (75-99)
[2016-11-18] MEDS: ATORVASTATIN 10 MG TAB PO SCH (21:21)
--- NOTE | 2016-11-18 22:45 | PN ---
DATE OF SERVICE: 11/18/2016 PRESENTING COMPLAINT: Shortness of breath. INTERVAL HISTORY: This is a patient who presented with acute on chronic congestive heart failure exacerbation from diastolic dysfunction. Today the patient is sitting up in a chair. His is also sitting up with him. Patient looks calm relaxed, says he feels pretty good. No complaints at this time. Review of systems done for constitutional, cardiovascular, GI, pulmonary, with relevant findings as above. CURRENT MEDICATIONS: 1. DuoNeb q.i.d. 2. Amiodarone 200 mg p.o. daily. 3. Aspirin 81 mg p.o. daily. 4. Lipitor 10 mg at bedtime. 5. Lasix IV q8 hours. 6. Zaroxolyn 2.5 mg p.o. daily. 7. Lopressor 25 mg b.i.d. PHYSICAL EXAMINATION: VITAL SIGNS: Temperature 98.0, heart rate 119, respiratory rate 20, blood pressure 86/51, oxygen saturation 96% on 6 liters nasal cannula. GENERAL APPEARANCE: Patient appears calm relaxed, sitting in the chair. His is at the bedside. EYES: Pupils equal. Conjunctivae normal. NECK: JVD raised. Mass not palpable. LUNGS: Diminished bilaterally. RESPIRATORY: Effort normal. Mildly labored. CARDIOVASCULAR: First and second sounds noted. Irregular. Moderate edema noted. ABDOMEN: Soft, nontender. Liver and spleen not palpable. PSYCHIATRY: Alert and oriented x3. Mood and affect are normal. INVESTIGATIONS: White blood cell count 15.5, hemoglobin 7.4, platelet count 456, INR 1.5. Sodium 134, potassium 3.3, BUN 47, creatinine 1.06, blood glucose 118. Chest air pace infiltrates persist. Cardiomegaly and pulmonary venous congestion. Bilateral pleural effusions continue. ASSESSMENT: 1. Acute on chronic congestive heart failure exacerbation from diastolic dysfunction, ejection fraction 55% to 60%. Slow to improve. 2. Aortic valve replacement and moderate mitral valve repair. 3. Sternal wound dehiscence with pectoralis flap in place, slow to respond. 4. Coronary artery disease with prior coronary artery bypass. 5. Acute hypoxic respiratory failure on high flow nasal cannula, slow to respond. 6. Persistent atrial fibrillation, variable rate, on IV heparin, slow to respond. 7. Chronic histoplasmosis, status post biopsy. 8. Status post pleural effusions that were tapped. 9. Hypercholesterolemia. 10. Hypotension. 11. Hypothyroidism. 12. Obesity BMI of 34.6. 13. Primary osteoarthritis of multiple joints bilaterally. 14. Moderate secondary pulmonary hypertension. 15. Gastroesophageal reflux disease. 16. CODE STATUS: FULL. PLAN: Patient has known bilateral loculated pleural effusions. Pulmonology is not going to tap them as they are too small. Patient remains in atrial fibrillation and cardiology recommends continuing a low dose beta ismael and amiodarone. Patient's culture was returned with Sravani albicans and is on Zosyn. We will follow. Patient was seen and examined by nurse practitioner, Karyna Murray and all elements of the case discussed with attending, Dr. Dillon. I performed a history and physical examination of this patient and discussed the same with the dictator. I agree with the dictator's note. Any additional findings/opinions, etc. will be noted.
[2016-11-19] MEDS ORDERED: POTASSIUM CHLORIDE ER 20 MEQ TAB.ER PO SCH
[2016-11-19 04:54] LABS: Anisocytosis Slight; Basophils # (A) 0.1 k/uL (0-0.2); Basophils % (A) 1 %; CH 25.2; CHCM 29.4; Eosinophils # (A) 0.2 k/uL (0-0.7); Eosinophils % (A) 1 %; HCT 26.1 % (39.0-53.0); HDW 4.26; HGB 7.5 gm/dL (13.0-17.5); Hypochromasia Marked; Luc # (Auto) 0.24; Luc % (Auto) 2; Lymphocytes # (A) 1.4 k/uL (1.0-4.8); Lymphocytes % (A) 9 %; MCH 24.6 pg (25.0-35.0); MCHC 28.9 g/dL (31.0-37.0); MCV 85.2 fL (80.0-100.0); Monocytes # (A) 0.7 k/uL (0-1.0); Monocytes % (A) 5 %; Neutrophils # (A) 12.3 k/uL (1.3-7.7); Neutrophils % (A) 83 %; Poikilocytosis Moderate; RBC 3.06 m/uL (4.30-5.90); RDW 18.2 % (11.5-15.5); WBC 14.8 k/uL (3.8-10.6); WBC (Perox) 14.83
[2016-11-19 05:00] LABS: Partial Thromboplastin Time 73.2 sec (22.0-30.0); Prothrombin Time 18.9 sec (9.0-12.0)
[2016-11-19 05:52] LABS: ALT 33 U/L (21-72); AST 25 U/L (17-59); Alkaline Phosphatase 82 U/L (38-126); Anion Gap 10 mmol/L; Blood Urea Nitrogen 44 mg/dL (9-20); Calcium 6.8 mg/dL (8.4-10.2); Carbon Dioxide 33 mmol/L (22-30); Chloride 90 mmol/L (98-107); Glucose 100 mg/dL (74-99); Magnesium 2.3 mg/dL (1.6-2.3); Non-African American GFR(MDRD) >60 (>60 ml/min/1.73 sqM); Phosphorous 4.1 mg/dL (2.5-4.5); Potassium 4.1 mmol/L (3.5-5.1); Sodium 133 mmol/L (137-145); Total Protein 5.8 g/dL (6.3-8.2)
[2016-11-19] MEDS: LEVOTHYROXINE 75 MCG TAB PO SCH (07:22)
[2016-11-19 07:47] LABS: Glucose,Whole Blood 119 mg/dL (75-99)
[2016-11-19] MEDS ORDERED: CALCIUM GLUCONATE 2,000 MG in SODIUM CHLORIDE 0.9% 100 ML IVPB ONE (08:00)
[2016-11-19] MEDS: IPRATROPIUM-ALBUTEROL 3 ML NEB INHALATION SCH ×5 (08:13→21:09)
--- NOTE | 2016-11-19 08:48 | XR ---
EXAMINATION TYPE: XR chest 1V portable DATE OF EXAM: 11/19/2016 6:28 AM COMPARISON: Prior chest x-ray 18 Nov 2016 HISTORY: Respiratory distress TECHNIQUE: Single frontal view of the chest is obtained. FINDINGS: Similar findings to prior exam. Drains are present over the bilateral chest. Atrial append age clipping noted. Surgical yoli are present in the midline. No evident pneumothorax. There is th ickening along the lateral pleural margins bilaterally. Overlying cardiac leads are present. Left-radha ed PICC line is present, distal tip not well seen. Cardiac mediastinal silhouette stable. There may b e some improvement in the interstitium, aeration. IMPRESSION: Suspect some improvement in volume status, aeration. Loculated pleural effusions.
[2016-11-19] MEDS: INSULIN LISPRO (humaLOG) 300 UNIT/3 ML VIAL SQ SCH ×4 (10:14→21:13)
[2016-11-19] MEDS: PIPERACILLIN-TAZOBACTAM 3.375 GM in DEXTROSE/WATER 1 50ML.BAG IVPB SCH ×3 (10:17→23:57)
[2016-11-19] MEDS: AMIODARONE 200 MG TAB PO SCH (10:21)
[2016-11-19] MEDS: PANTOPRAZOLE 40 MG TABLET PO SCH (10:21)
[2016-11-19] MEDS: FUROSEMIDE 10 MG/ML 4 ML VIAL IV SCH (10:21)
[2016-11-19] MEDS: ASPIRIN 81 MG CHEW PO SCH (10:21)
[2016-11-19] MEDS: METOPROLOL TARTRATE 25 MG TAB PO SCH ×3 (10:22→23:56)
[2016-11-19] MEDS: METOLAZONE 2.5 MG TAB PO SCH (10:22)
--- NOTE | 2016-11-19 10:43 | P.PN ---
<Charisse Croft - Last Filed: 11/19/16 10:43> Subjective Principal diagnosis: POD #54 aortic valve replacement, mitral valve repair, mediastinal lymph node biopsy. POD #34 muscle flap closure after sternal wound dehiscence. Paroxysmal atrial fibrillation currently treated with amiodarone and Coumadin Currently sitting up in bed in no apparent distress. Remains in A. fib with RVR. Lopressor increased by cardiology. Preliminary results for fluid culture sent from MEGHAN drainage is positive for mine albicans, Dr. Ramos is aware. Objective - Vital Signs Vital signs: Vital Signs Temp 97.3 F L 11/19/16 10:00 Pulse 116 H 11/19/16 10:00 Resp 23 11/19/16 10:00 BP 81/65 11/19/16 08:00 Pulse Ox 94 L 11/19/16 10:00 Intake & Output 11/18/16 11/19/16 11/19/16 18:59 06:59 18:59 Intake Total 1777.126 992.500 30 Output Total 1980 1050 350 Balance -202.874 -57.500 -320 Intake: IV 350 132.5 30 0.9 NS 40 70 30 Calcium Gluconate 2,000 100 mg In Sodium Chloride 0.9 % 100 ml @ 100 mls/hr IVPB ONCE ONE Rx#: [id number] Piperacillin-Tazobactam 3 70 62.5 .375 gm In Dextrose/Water 1 50ml.bag @ 12.5 mls/hr IVPB Q8HR [facility] Rx#: [id number] Sodium Chloride 0.9% 1, 140 000 ml @ 20 mls/hr IV . Q24H [facility] Rx#:[id number] Intake, IV Titration 467.126 500.000 Amount Heparin Sodium,Porcine/ 467.126 500.000 D5w Pmx 25,000 unit In Dextrose/Water 1 500ml. bag @ 15 UNITS/KG/HR 32. 01 mls/hr IV .[id number] [facility] Rx#:[id number] Oral 960 360 Output: Drainage 160 170 50 Medial MEGHAN Drain 145 140 50 Right Lateral MEGHAN Drain 15 30 Urine 1820 880 300 Other: Voiding Method Indwelling Catheter Indwelling Catheter Indwelling Catheter # Bowel Movements 1 - Constitutional General appearance: Present: cooperative, no acute distress, obese - Respiratory Details: Lungs sounds diminished bilaterally. Respirations even, nonlabored. Currently on 6 L nasal cannula oxygen saturation 95%. Left MEGHAN drain with 0 documented drainage overnight. Right MEGHAN drain with 30 mL drainage overnight. Middle MEGHAN drain with 90 mL drainage overnight. - Cardiovascular Details: S1, S2 present. Irregular, tachycardia rate and rhythm, A. fib with RVR on telemetry. Bilateral lower extremity edema present. - Gastrointestinal Gastrointestinal Comment(s): Abdomen soft, nontender, nondistended. Active bowel sounds 4 quadrants. Tolerating diet. - Genitourinary Genitourinary Comment(s): Duong present draining clear, yellow urine. Approximately 50-90 mL per hour. Patient is on Lasix 40 mg IV push daily - Integumentary Integumentary Comment(s): Anterior chest incision well approximated with intact yoli. - Musculoskeletal Musculoskeletal: Present: generalized weakness - Psychiatric Psychiatric: Present: A&O x's 3, appropriate affect, intact judgment & insight - Allied health notes Allied health notes reviewed: nursing - Labs CBC & Chem 7: 11/19/16 04:18 11/19/16 04:18 Labs: Abnormal Lab Results - Last 24 Hours (Table) 11/18/16 11/18/16 11/18/16 Range/Units 11:10 12:24 17:29 WBC (3.8-10.6) k/uL RBC (4.30-5.90) m/uL Hgb (13.0-17.5) gm/dL Hct (39.0-53.0) % MCH (25.0-35.0) pg MCHC (31.0-37.0) g/dL RDW (11.5-15.5) % Plt Count (150-450) k/uL Neutrophils # (1.3-7.7) k/uL PT (9.0-12.0) sec APTT (22.0-30.0) sec Sodium (137-145) mmol/L Potassium 3.2 L (3.5-5.1) mmol/L Chloride (98-107) mmol/L Carbon Dioxide (22-30) mmol/L BUN (9-20) mg/dL Glucose (74-99) mg/dL POC Glucose (mg/dL) 121 H 195 H (75-99) mg/dL Calcium (8.4-10.2) mg/dL Total Protein (6.3-8.2) g/dL Albumin (3.5-5.0) g/dL 11/18/16 11/19/16 11/19/16 Range/Units 21:19 04:18 04:18 WBC 14.8 H (3.8-10.6) k/uL RBC 3.06 L (4.30-5.90) m/uL Hgb 7.5 L (13.0-17.5) gm/dL Hct 26.1 L (39.0-53.0) % MCH 24.6 L (25.0-35.0) pg MCHC 28.9 L (31.0-37.0) g/dL RDW 18.2 H (11.5-15.5) % Plt Count 514 H (150-450) k/uL Neutrophils # 12.3 H (1.3-7.7) k/uL PT 18.9 H (9.0-12.0) sec APTT 73.2 H (22.0-30.0) sec Sodium (137-145) mmol/L Potassium (3.5-5.1) mmol/L Chloride (98-107) mmol/L Carbon Dioxide (22-30) mmol/L BUN (9-20) mg/dL Glucose (74-99) mg/dL POC Glucose (mg/dL) 113 H (75-99) mg/dL Calcium (8.4-10.2) mg/dL Total Protein (6.3-8.2) g/dL Albumin (3.5-5.0) g/dL 11/19/16 11/19/16 Range/Units 04:18 07:45 WBC (3.8-10.6) k/uL RBC (4.30-5.90) m/uL Hgb (13.0-17.5) gm/dL Hct (39.0-53.0) % MCH (25.0-35.0) pg MCHC (31.0-37.0) g/dL RDW (11.5-15.5) % Plt Count (150-450) k/uL Neutrophils # (1.3-7.7) k/uL PT (9.0-12.0) sec APTT (22.0-30.0) sec Sodium 133 L (137-145) mmol/L Potassium (3.5-5.1) mmol/L Chloride 90 L (98-107) mmol/L Carbon Dioxide 33 H (22-30) mmol/L BUN 44 H (9-20) mg/dL Glucose 100 H (74-99) mg/dL POC Glucose (mg/dL) 119 H (75-99) mg/dL Calcium 6.8 L (8.4-10.2) mg/dL Total Protein 5.8 L (6.3-8.2) g/dL Albumin 2.3 L (3.5-5.0) g/dL - Imaging and Cardiology Chest x-ray: image reviewed Assessment and Plan (1) Congestive heart failure Status: Acute (2) Hypercholesterolemia Status: Acute (3) Hypertension Status: Acute (4) Hypothyroidism (acquired) Status: Acute (5) Obesity Status: Acute (6) Paroxysmal a-fib Status: Acute (7) Status post aortic valve replacement Status: Acute (8) Status post mitral valve repair Status: Acute Plan: 1. Continue aspirin, amiodarone, Lopressor, Lasix, Zaroxolyn. 2. Body fluid culture from MEGHAN drains sent, preliminarily demonstrating Mine albicans. Will follow final culture results. Antibiotics per pulmonology/ID. 3. Wean O2 as tolerated. Encourage incentive spirometry use. 4. Medical comorbidities to be managed by internal medicine. 5. Encourage increased activity. Physical therapy to follow 6. Replace calcium. INR therapeutic. Would recommend discontinuing heparin drip. 7. No indication for cardiothoracic surgical intervention at this time. 8. May transfer patient out of the ICU from our standpoint. Time with Patient: Greater than 30 <Brant Crawford - Last Filed: 11/19/16 17:33> Objective - Vital Signs Vital signs: Vital Signs Temp 97.4 F L 11/19/16 12:00 Pulse 123 H 11/19/16 16:38 Resp 20 11/19/16 16:38 BP 118/65 11/19/16 16:38 Pulse Ox 94 L 11/19/16 16:38 Intake & Output 11/18/16 11/19/16 11/19/16 18:59 06:59 18:59 Intake Total 1777.126 992.500 30 Output Total 1980 1050 1810 Balance -202.874 -57.500 -1780 Weight 110.1 kg Intake: IV 350 132.5 30 0.9 NS 40 70 30 Calcium Gluconate 2,000 100 mg In Sodium Chloride 0.9 % 100 ml @ 100 mls/hr IVPB ONCE ONE Rx#: [id number] Piperacillin-Tazobactam 3 70 62.5 .375 gm In Dextrose/Water 1 50ml.bag @ 12.5 mls/hr IVPB Q8HR [facility] Rx#: [id number] Sodium Chloride 0.9% 1, 140 000 ml @ 20 mls/hr IV . Q24H [facility] Rx#:[id number] Intake, IV Titration 467.126 500.000 Amount Heparin Sodium,Porcine/ 467.126 500.000 D5w Pmx 25,000 unit In Dextrose/Water 1 500ml. bag @ 15 UNITS/KG/HR 32. 01 mls/hr IV .[id number] [facility] Rx#:[id number] Oral 960 360 Output: Drainage 160 170 110 Medial MEGHAN Drain 145 140 110 Right Lateral MEGHAN Drain 15 30 Urine 9520 [id number] [id number] Other: Voiding Method Indwelling Catheter Indwelling Catheter Indwelling Catheter # Bowel Movements 1 - Labs CBC & Chem 7: 11/19/16 04:18 11/19/16 04:18 Labs: Abnormal Lab Results - Last 24 Hours (Table) 11/18/16 11/18/16 11/19/16 Range/Units 17:29 21:19 04:18 WBC 14.8 H (3.8-10.6) k/uL RBC 3.06 L (4.30-5.90) m/uL Hgb 7.5 L (13.0-17.5) gm/dL Hct 26.1 L (39.0-53.0) % MCH 24.6 L (25.0-35.0) pg MCHC 28.9 L (31.0-37.0) g/dL RDW 18.2 H (11.5-15.5) % Plt Count 514 H (150-450) k/uL Neutrophils # 12.3 H (1.3-7.7) k/uL PT (9.0-12.0) sec APTT (22.0-30.0) sec Sodium (137-145) mmol/L Chloride (98-107) mmol/L Carbon Dioxide (22-30) mmol/L BUN (9-20) mg/dL Glucose (74-99) mg/dL POC Glucose (mg/dL) 195 H 113 H (75-99) mg/dL Calcium (8.4-10.2) mg/dL Total Protein (6.3-8.2) g/dL Albumin (3.5-5.0) g/dL 11/19/16 11/19/16 11/19/16 Range/Units 04:18 04:18 07:45 WBC (3.8-10.6) k/uL RBC (4.30-5.90) m/uL Hgb (13.0-17.5) gm/dL Hct (39.0-53.0) % MCH (25.0-35.0) pg MCHC (31.0-37.0) g/dL RDW (11.5-15.5) % Plt Count (150-450) k/uL Neutrophils # (1.3-7.7) k/uL PT 18.9 H (9.0-12.0) sec APTT 73.2 H (22.0-30.0) sec Sodium 133 L (137-145) mmol/L Chloride 90 L (98-107) mmol/L Carbon Dioxide 33 H (22-30) mmol/L BUN 44 H (9-20) mg/dL Glucose 100 H (74-99) mg/dL POC Glucose (mg/dL) 119 H (75-99) mg/dL Calcium 6.8 L (8.4-10.2) mg/dL Total Protein 5.8 L (6.3-8.2) g/dL Albumin 2.3 L (3.5-5.0) g/dL 11/19/16 11/19/16 Range/Units 12:22 16:35 WBC (3.8-10.6) k/uL RBC (4.30-5.90) m/uL Hgb (13.0-17.5) gm/dL Hct (39.0-53.0) % MCH (25.0-35.0) pg MCHC (31.0-37.0) g/dL RDW (11.5-15.5) % Plt Count (150-450) k/uL Neutrophils # (1.3-7.7) k/uL PT (9.0-12.0) sec APTT (22.0-30.0) sec Sodium (137-145) mmol/L Chloride (98-107) mmol/L Carbon Dioxide (22-30) mmol/L BUN (9-20) mg/dL Glucose (74-99) mg/dL POC Glucose (mg/dL) 178 H 110 H (75-99) mg/dL Calcium (8.4-10.2) mg/dL Total Protein (6.3-8.2) g/dL Albumin (3.5-5.0) g/dL Microbiology - Last 24 Hours (Table) 11/15/16 10:30 Gram Stain - Final Pericardial Fluid Body Fluid Culture - Final Mine albicans Assessment and Plan Plan: The patient was seen and examined. I agree with the above assessment and plan. He was transferred to [facility] today. The remaining yoli from his sternal wound removed. He still is quite debilitated and needs physical therapy. He'll be transferred back to rehab once cleared by his primary team.
[2016-11-19 11:10] VITALS: BMI 35.8
--- NOTE | 2016-11-19 11:25 | P.PN ---
Subjective Principal diagnosis: Pulmonary edema and bilateral pleural effusions, atrial fibrillation with RVR. 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 Patient was eventually discharged home after a relatively prolonged hospital course, patient was readmitted on October 06 through October 30 with increased shortness of breath, and he was found to have congestive heart failure, sterility 1 dehiscence requiring sternal exploration and debridement and wound closure with bilateral pectoralis muscle flaps. During that admission , patient also required left sided chest tube placement, right sided thoracentesis, patient was eventually extubated, and transferred to rehab at [facility] under the care of Dr. Reyes. However after few days, patient developed congestive heart failure, worsening pleural effusion requiring thoracentesis again, loculated pleural effusion on the right side was noted based on ultrasound and CT of the chest, there was some purulence noted in his MEGHAN drains which are mediastinal drains, hence arrangements were made to transfer the patient back to [facility]. Patient was initially admitted to the intensive care unit, placed on broad-spectrum antibiotics, he is on heparin drip, and his last hospitalization while at [facility], his sputum was positive for Haemophilus influenza and Serratia marcescens. At any rate patient is to be seen by many consultants during this transfer, and I was asked to see him on consultation today. Patient was placed back on his usual medications, diuretics, I reviewed her chest x-ray, and I felt that the patient has bilateral pleural effusions, small at this point, will not require thoracentesis at least not for now. Patient was reevaluated today on 11/16/2016, breathing a bit easier, however the patient is requiring levo fed for low blood pressure. Remains in atrial fibrillation, but rate seems to be better controlled today. Remains on antibiotics for presumptive infectious process, however cultures have been negative so far. Chest x-ray continues to show bilateral pleural effusions and congestive heart failure changes. Lasix is presently on hold. Since the blood pressure was marginal earlier today requiring transferring back to the ICU. Patient was reevaluated today on 11/17/2016, clinically the patient seems to be doing much better, breathing a lot easier. Blood pressure remains marginal. Chest x-ray is showing some congestive heart failure changes, bilateral pleural effusions, ultrasound on the chest showed loculated pleural effusion, the amount of the fluid on both lungs are small, and not much to consider safe thoracentesis. Hence no plans to do thoracentesis at this point mostly because of the fluid is loculated and because the size of the fluid is rather small smaller on the right than on the left. Patient was placed back on Coumadin, hence we will continue with the Coumadin for anticoagulation. Given a dose of Lasix this morning, 40 mg IV push, and we'll likely continue on a daily basis depending and is on his overall clinical condition. Patient is feeling again much better today, less short of breath. And he seems to be quite appropriate. Labs showed WBC count of 15 hemoglobin of 7.1. INR is 1.4. Electrolytes showed low potassium of 3.1 BUN is 53 creatinine is 1.17. Hence will be cautious with diuretics. On 11/18/2016, patient seems to be doing a bit better, less shortness of breath, chest x-ray is showing less congestive heart failure, his atrial fibrillation seems to be better controlled, however his blood pressure is marginal, mean is in the low 60s. Urine output is excellent. All his labs were reviewed. Hemoglobin is 7.4 unchanged. WBC count is 15.5. PTT is 59. Electrolytes are normal except for low potassium of 3.3 BUN is 47 creatinine is 1.06. Patient remains on 1 Lasix dose daily. And that seems to be working well for him. It is 40 mg IV push every morning. Chest x-ray from today was reviewed showing improvement. Ultrasound which was done yesterday was also reviewed, and the patient clearly does not need thoracentesis at this point. On 11/19/2016, patient continues to gradually improve, he seems to be a bit more awake, more appropriate, and bit stronger, and he denies any shortness of breath. Continues to have issues with his atrial fibrillation, blood pressure remains marginal, but urine output is excellent. Patient is hemodynamically stable at this point. And not requiring any pressors. Microbiology from the fluid was reviewed, and Dr. Ramos is aware of the Sravani from the MEGHAN drain. Please refer to his note. WBC count is 14.8 hemoglobin is 7.5 INR is therapeutic hence I will discontinue heparin. Electrolytes are normal. BUN is 44 creatinine is 1.08. Objective - Vital Signs Vital signs: Vital Signs Temp 97.3 F L 11/19/16 10:00 Pulse 116 H 11/19/16 10:00 Resp 23 11/19/16 10:00 BP 81/65 11/19/16 08:00 Pulse Ox 94 L 11/19/16 10:00 Intake & Output 11/18/16 11/19/16 11/19/16 18:59 06:59 18:59 Intake Total 1777.126 992.500 30 Output Total 1980 1050 350 Balance -202.874 -57.500 -320 Weight 110.1 kg Intake: IV 350 132.5 30 0.9 NS 40 70 30 Calcium Gluconate 2,000 100 mg In Sodium Chloride 0.9 % 100 ml @ 100 mls/hr IVPB ONCE ONE Rx#: [id number] Piperacillin-Tazobactam 3 70 62.5 .375 gm In Dextrose/Water 1 50ml.bag @ 12.5 mls/hr IVPB Q8HR [facility] Rx#: [id number] Sodium Chloride 0.9% 1, 140 000 ml @ 20 mls/hr IV . Q24H [facility] Rx#:[id number] Intake, IV Titration 467.126 500.000 Amount Heparin Sodium,Porcine/ 467.126 500.000 D5w Pmx 25,000 unit In Dextrose/Water 1 500ml. bag @ 15 UNITS/KG/HR 32. 01 mls/hr IV .[id number] [facility] Rx#:[id number] Oral 960 360 Output: Drainage 160 170 50 Medial MEGHAN Drain 145 140 50 Right Lateral MEGHAN Drain 15 30 Urine 1820 880 300 Other: Voiding Method Indwelling Catheter Indwelling Catheter Indwelling Catheter # Bowel Movements 1 - Exam Physical Exam: Revealed a 71-year-old white male, cachectic, pale looking, not in respiratory distress HEENT:[Neck ithroughout, nos supple.] [No neck masses.] [No thyromegaly.] [No JVD.] Chest: [Diminished breath sounds and crackles at the bases were noted. No rhonchi no wheezes.] Cardiac Exam: [Irregular irregular rhythm, dressing on sternal wound is noted, MEGHAN drains 2 were noted. Abdomen: [Soft, nontender, no megaly, no rebound, no guarding, normal bowel sounds.] Extremities: [No clubbing, 2+ bipedal edema, no cyanosis.] Neurological Exam: [No focal neurologic deficit.] - Labs CBC & Chem 7: 11/19/16 04:18 11/19/16 04:18 Labs: Abnormal Lab Results - Last 24 Hours (Table) 11/18/16 11/18/16 11/18/16 Range/Units 11:10 12:24 17:29 WBC (3.8-10.6) k/uL RBC (4.30-5.90) m/uL Hgb (13.0-17.5) gm/dL Hct (39.0-53.0) % MCH (25.0-35.0) pg MCHC (31.0-37.0) g/dL RDW (11.5-15.5) % Plt Count (150-450) k/uL Neutrophils # (1.3-7.7) k/uL PT (9.0-12.0) sec APTT (22.0-30.0) sec Sodium (137-145) mmol/L Potassium 3.2 L (3.5-5.1) mmol/L Chloride (98-107) mmol/L Carbon Dioxide (22-30) mmol/L BUN (9-20) mg/dL Glucose (74-99) mg/dL POC Glucose (mg/dL) 121 H 195 H (75-99) mg/dL Calcium (8.4-10.2) mg/dL Total Protein (6.3-8.2) g/dL Albumin (3.5-5.0) g/dL 11/18/16 11/19/16 11/19/16 Range/Units 21:19 04:18 04:18 WBC 14.8 H (3.8-10.6) k/uL RBC 3.06 L (4.30-5.90) m/uL Hgb 7.5 L (13.0-17.5) gm/dL Hct 26.1 L (39.0-53.0) % MCH 24.6 L (25.0-35.0) pg MCHC 28.9 L (31.0-37.0) g/dL RDW 18.2 H (11.5-15.5) % Plt Count 514 H (150-450) k/uL Neutrophils # 12.3 H (1.3-7.7) k/uL PT 18.9 H (9.0-12.0) sec APTT 73.2 H (22.0-30.0) sec Sodium (137-145) mmol/L Potassium (3.5-5.1) mmol/L Chloride (98-107) mmol/L Carbon Dioxide (22-30) mmol/L BUN (9-20) mg/dL Glucose (74-99) mg/dL POC Glucose (mg/dL) 113 H (75-99) mg/dL Calcium (8.4-10.2) mg/dL Total Protein (6.3-8.2) g/dL Albumin (3.5-5.0) g/dL 11/19/16 11/19/16 Range/Units 04:18 07:45 WBC (3.8-10.6) k/uL RBC (4.30-5.90) m/uL Hgb (13.0-17.5) gm/dL Hct (39.0-53.0) % MCH (25.0-35.0) pg MCHC (31.0-37.0) g/dL RDW (11.5-15.5) % Plt Count (150-450) k/uL Neutrophils # (1.3-7.7) k/uL PT (9.0-12.0) sec APTT (22.0-30.0) sec Sodium 133 L (137-145) mmol/L Potassium (3.5-5.1) mmol/L Chloride 90 L (98-107) mmol/L Carbon Dioxide 33 H (22-30) mmol/L BUN 44 H (9-20) mg/dL Glucose 100 H (74-99) mg/dL POC Glucose (mg/dL) 119 H (75-99) mg/dL Calcium 6.8 L (8.4-10.2) mg/dL Total Protein 5.8 L (6.3-8.2) g/dL Albumin 2.3 L (3.5-5.0) g/dL Assessment and Plan Plan: Impression: 1 acute on chronic congestive heart failure secondary to diastolic dysfunction and possibly some component of LV dysfunction based on the echocardiogram. 2 recent aortic valve replacement and mitral valve repair. 3 recent sternal wound dehiscence requiring pectoralis muscle flap. 4 history of coronary artery disease and previous CABG. 5 acute hypoxic respiratory failure secondary to congestive heart failure, and bilateral pleural effusions. 6 persistent atrial fibrillation with variable rate, patient remains on IV heparin. 7 history of pleural effusions requiring thoracentesis 2 on the right side. Follow-up ultrasound of the chest today showed small amount of fluid on both sides, the fluid is loculated, and safety thoracentesis cannot be done. Hence no plans to tap the patient today mostly because of the size is small, not to mention the fluid is loculated in both sides. 8 moderate severe pulmonary hypertension. 9 history of chronic histoplasmosis. 10 history of degenerative joint disease. 11 history of GERD without esophagitis. 12 history of hypothyroidism. 13 history of coronary artery disease and previous CABG. Recommendation: Continue present treatment plan including diuretics, antibiotics , antimicrobial therapy as advised by infectious disease. Patient can be transferred today to [facility] monitored bed on [facility]. We'll continue to follow. Consider discharge planning next week to rehab facility. Time with Patient: Less than 30
[2016-11-19 12:25] LABS: Glucose,Whole Blood 178 mg/dL (75-99)
[2016-11-19] MEDS: MULTIVITAMINS, THERA 1 EACH TAB PO SCH (12:46)
--- NOTE | 2016-11-19 14:10 | P.PN ---
Subjective Principal diagnosis: respiratory failure This is a 71-year-old male well known to ID service who came in the hospital on September 23 and underwent a JAYDE and heart catheterization showing a ruptured chordae tendonae, mitral regurgitation, moderate pulmonary hypertension , with history of paroxysmal atrial fibrillation and heart failure. 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 With this the patient was initiated to itraconazole. He however developed atrial fibrillation. Because of this he was initiated to amiodarone. The dose of itraconazole was reduced by 50%. There is no evidence of alteration of the QT interval while he was in hospital. He eventually was discharged home. It is related that he was not able to obtain the itraconazole. In this is going to be addressed in the coming days. However he returned to [facility] emergency center due to shortness of breath and was hospitalized October 06 through October 30 at which time he required intubation and mechanical ventilation. He was successfully extubated. He was treated for dehiscence of sternal wires requiring sternal exploration, debridement and wound closure with bilateral pectoralis major myocutaneous advanced flaps. He also required chest tube placement for left pleural effusion and right thoracentesis for right pleural effusion with drainage of 1.5 L of dark red tinged fluid. Muscle flap procedure was done on October 15. Patient was stabilized and then transferred to [facility] for inpatient rehab under the care of Dr. Christina. He developed increasing shortness of breath and edema and was eventually transferred to the intensive care unit where he was found to be in atrial fibrillation with rapid ventricular response and acute systolic heart failure and underwent thoracentesis with removal of 1.6 L on the right chest. Patient was treated in the intensive care unit until a bed was available at [facility] he was a direct transfer. Chest x-ray here shows developing pleural fluid collection along lateral right chest wall. Consults are in place with Dr. Gaffney, cardiovascular surgeon and cardiology. Patient has [address] with one showing some purulence for which a culture to be sent today. Patient has had some mild confusion since admission. He did receive extra dose of Lasix this morning. He has been afebrile. Patient is on heparin drip and amiodarone is oral. For antibiotics, patient is on Zosyn. Echocardiogram reveals EF 40-45%, normally functioning bioprosthetic valve, trace mitral regurgitation, mild tricuspid regurgitation. Sputum culture during his hospitalization of October 06 was positive for Haemophilus influenza and Serratia marcescens susceptible to Zosyn. Continues to show significant improvement. Voice is stronger. Sitting upright. Eating better. Less short of breath. Less sputum production. Working with PT and improving Objective - Vital Signs Vital signs: Vital Signs Temp 97.4 F L 11/19/16 12:00 Pulse 105 H 11/19/16 12:00 Resp 23 11/19/16 12:00 BP 81/65 11/19/16 08:00 Pulse Ox 97 11/19/16 12:00 Intake & Output 11/18/16 11/19/16 11/19/16 18:59 06:59 18:59 Intake Total 1777.126 992.500 30 Output Total 1980 1050 1750 Balance -202.874 -57.500 -1720 Weight 110.1 kg Intake: IV 350 132.5 30 0.9 NS 40 70 30 Calcium Gluconate 2,000 100 mg In Sodium Chloride 0.9 % 100 ml @ 100 mls/hr IVPB ONCE ONE Rx#: [id number] Piperacillin-Tazobactam 3 70 62.5 .375 gm In Dextrose/Water 1 50ml.bag @ 12.5 mls/hr IVPB Q8HR [facility] Rx#: [id number] Sodium Chloride 0.9% 1, 140 000 ml @ 20 mls/hr IV . Q24H [facility] Rx#:[id number] Intake, IV Titration 467.126 500.000 Amount Heparin Sodium,Porcine/ 467.126 500.000 D5w Pmx 25,000 unit In Dextrose/Water 1 500ml. bag @ 15 UNITS/KG/HR 32. 01 mls/hr IV .[id number] [facility] Rx#:[id number] Oral 960 360 Output: Drainage 160 170 50 Medial MEGHAN Drain 145 140 50 Right Lateral MEGHAN Drain 15 30 Urine 8565 745 2179 Other: Voiding Method Indwelling Catheter Indwelling Catheter Indwelling Catheter # Bowel Movements 1 - Exam This is a 71-year-old male. He appears comfortable lying in ICU bed. He does arouse to verbal stimuli and is able to follow simple commands and answer questions. Cardiac monitors atrial fibrillation with rapid ventricular response. HEENT: Head is atraumatic, normocephalic. Pupils equal, round. Sclerae is anicteric. Conjunctiva slightly pale. Mucous membranes of the mouth are dry. No thrush noted. NECK: Supple. No JVD. No lymphadenopathy. No thyromegaly. LUNGS: improved air exchange No significant bronchial sounds. MEGHAN drain to the right chest shows serous drainage small amount. MEGHAN drain to the midsternal area show serosanguineous with some yellow exudate. Left lateral MEGHAN drain with serous drainage. HEART: Irregular with no murmur Dressing on sternal wound and place. ABDOMEN: Distinctly distended. Bowel sounds are normal. Organomegaly is not detected. Abdomen is nontender. EXTREMITIES: +3 bilateral pedal edema. SCDs in place. NEUROLOGICAL: Awake and alert. Able to follow simple commands and answer questions. - Labs CBC & Chem 7: 11/19/16 04:18 11/19/16 04:18 Labs: Abnormal Lab Results - Last 24 Hours (Table) 11/18/16 11/18/16 11/19/16 Range/Units 17:29 21:19 04:18 WBC 14.8 H (3.8-10.6) k/uL RBC 3.06 L (4.30-5.90) m/uL Hgb 7.5 L (13.0-17.5) gm/dL Hct 26.1 L (39.0-53.0) % MCH 24.6 L (25.0-35.0) pg MCHC 28.9 L (31.0-37.0) g/dL RDW 18.2 H (11.5-15.5) % Plt Count 514 H (150-450) k/uL Neutrophils # 12.3 H (1.3-7.7) k/uL PT (9.0-12.0) sec APTT (22.0-30.0) sec Sodium (137-145) mmol/L Chloride (98-107) mmol/L Carbon Dioxide (22-30) mmol/L BUN (9-20) mg/dL Glucose (74-99) mg/dL POC Glucose (mg/dL) 195 H 113 H (75-99) mg/dL Calcium (8.4-10.2) mg/dL Total Protein (6.3-8.2) g/dL Albumin (3.5-5.0) g/dL 11/19/16 11/19/16 11/19/16 Range/Units 04:18 04:18 07:45 WBC (3.8-10.6) k/uL RBC (4.30-5.90) m/uL Hgb (13.0-17.5) gm/dL Hct (39.0-53.0) % MCH (25.0-35.0) pg MCHC (31.0-37.0) g/dL RDW (11.5-15.5) % Plt Count (150-450) k/uL Neutrophils # (1.3-7.7) k/uL PT 18.9 H (9.0-12.0) sec APTT 73.2 H (22.0-30.0) sec Sodium 133 L (137-145) mmol/L Chloride 90 L (98-107) mmol/L Carbon Dioxide 33 H (22-30) mmol/L BUN 44 H (9-20) mg/dL Glucose 100 H (74-99) mg/dL POC Glucose (mg/dL) 119 H (75-99) mg/dL Calcium 6.8 L (8.4-10.2) mg/dL Total Protein 5.8 L (6.3-8.2) g/dL Albumin 2.3 L (3.5-5.0) g/dL 11/19/16 Range/Units 12:22 WBC (3.8-10.6) k/uL RBC (4.30-5.90) m/uL Hgb (13.0-17.5) gm/dL Hct (39.0-53.0) % MCH (25.0-35.0) pg MCHC (31.0-37.0) g/dL RDW (11.5-15.5) % Plt Count (150-450) k/uL Neutrophils # (1.3-7.7) k/uL PT (9.0-12.0) sec APTT (22.0-30.0) sec Sodium (137-145) mmol/L Chloride (98-107) mmol/L Carbon Dioxide (22-30) mmol/L BUN (9-20) mg/dL Glucose (74-99) mg/dL POC Glucose (mg/dL) 178 H (75-99) mg/dL Calcium (8.4-10.2) mg/dL Total Protein (6.3-8.2) g/dL Albumin (3.5-5.0) g/dL Laboratory Results WBC 14.8 k/uL (3.8-10.6) H 11/19/16 04:18 RBC 3.06 m/uL (4.30-5.90) L 11/19/16 04:18 Hgb 7.5 gm/dL (13.0-17.5) L 11/19/16 04:18 Hct 26.1 % (39.0-53.0) L 11/19/16 04:18 MCV 85.2 fL (80.0-100.0) 11/19/16 04:18 MCH 24.6 pg (25.0-35.0) L 11/19/16 04:18 MCHC 28.9 g/dL (31.0-37.0) L 11/19/16 04:18 RDW 18.2 % (11.5-15.5) H 11/19/16 04:18 Plt Count 514 k/uL (150-450) H 11/19/16 04:18 Neutrophils % 83 % 11/19/16 04:18 Neutrophils % (Manual) 86.0 % 11/15/16 04:18 Band Neutrophils % 1.0 % 11/15/16 04:18 Lymphocytes % 9 % 11/19/16 04:18 Lymphocytes % (Manual) 6.0 % 11/15/16 04:18 Monocytes % 5 % 11/19/16 04:18 Monocytes % (Manual) 7.0 % 11/15/16 04:18 Eosinophils % 1 % 11/19/16 04:18 Basophils % 1 % 11/19/16 04:18 Neutrophils # 12.3 k/uL (1.3-7.7) H 11/19/16 04:18 Neutrophils # (Manual) 12.9 k/uL (1.3-7.7) H 11/15/16 04:18 Lymphocytes # 1.4 k/uL (1.0-4.8) 11/19/16 04:18 Lymphocytes # (Manual) 0.9 k/uL (1.0-4.8) L 11/15/16 04:18 Monocytes # 0.7 k/uL (0-1.0) 11/19/16 04:18 Monocytes # (Manual) 1.0 k/uL (0-1.0) 11/15/16 04:18 Eosinophils # 0.2 k/uL (0-0.7) 11/19/16 04:18 Basophils # 0.1 k/uL (0-0.2) 11/19/16 04:18 Nucleated RBCs 1 /100 WBC (0-0) H 11/15/16 04:18 Manual Slide Review Performed 11/15/16 04:18 Polychromasia Present 11/15/16 04:18 Hypochromasia Marked 11/19/16 04:18 Hypochromasia (manual) Pres 11/15/16 04:18 Poikilocytosis Moderate 11/19/16 04:18 Anisocytosis Slight 11/19/16 04:18 Anisocytosis (manual) Present 11/15/16 04:18 Spherocytes Present 11/15/16 04:18 PT 18.9 sec (9.0-12.0) H 11/19/16 04:18 INR 2.0 (<1.1) 11/19/16 04:18 APTT 73.2 sec (22.0-30.0) H 11/19/16 04:18 Sodium 133 mmol/L (137-145) L 11/19/16 04:18 Potassium 4.1 mmol/L (3.5-5.1) 11/19/16 04:18 Chloride 90 mmol/L (98-107) L 11/19/16 04:18 Carbon Dioxide 33 mmol/L (22-30) H 11/19/16 04:18 Anion Gap 10 mmol/L 11/19/16 04:18 BUN 44 mg/dL (9-20) H 11/19/16 04:18 Creatinine 1.08 mg/dL (0.66-1.25) 11/19/16 04:18 Est GFR (MDRD) Af Amer >60 (>60 ml/min/1.73 sqM) 11/19/16 04:18 Est GFR (MDRD) Non-Af >60 (>60 ml/min/1.73 sqM) 11/19/16 04:18 Glucose 100 mg/dL (74-99) H 11/19/16 04:18 POC Glucose (mg/dL) 178 mg/dL (75-99) H 11/19/16 12:22 POC Glu Gas Singer ID Anneliese Bazzi 11/19/16 12:[address] Glu mg/dL 103 mg/dL 11/13/16 21:54 Hemoglobin A1c 5.2 % (4.2-6.1) 11/13/16 21:54 Plasma Lactic Acid Samir 1.7 mmol/L (0.7-2.0) 11/16/16 03:39 Calcium 6.8 mg/dL (8.4-10.2) L 11/19/16 04:18 Phosphorus 4.1 mg/dL (2.5-4.5) 11/19/16 04:18 Magnesium 2.3 mg/dL (1.6-2.3) 11/19/16 04:18 Total Bilirubin 1.0 mg/dL (0.2-1.3) 11/19/16 04:18 AST 25 U/L (17-59) 11/19/16 04:18 ALT 33 U/L (21-72) 11/19/16 04:18 Alkaline Phosphatase 82 U/L (38-126) 11/19/16 04:18 NT-Pro-B Natriuret Pep 6900 pg/mL 11/18/16 04:30 Total Protein 5.8 g/dL (6.3-8.2) L 11/19/16 04:18 Albumin 2.3 g/dL (3.5-5.0) L 11/19/16 04:18 Free T4 1.58 ng/dL (0.78-2.19) 11/15/16 04:18 Thyroid Stim Immunoglob <0.10 IU/L (<0.10) 11/15/16 04:18 Urine Color Yellow 11/16/16 01:30 Urine Appearance Clear (Clear) 11/16/16 01:30 Urine pH 6.0 (5.0-8.0) 11/16/16 01:30 Ur Specific [place] 1.009 (1.001-1.035) 11/16/16 01:30 Urine Protein Negative (Negative) 11/16/16 01:30 Urine Glucose (UA) Negative (Negative) 11/16/16 01:30 Urine Ketones Negative (Negative) 11/16/16 01:30 Urine Blood Negative (Negative) 11/16/16 01:30 Urine Nitrite Negative (Negative) 11/16/16 01:30 Urine Bilirubin Negative (Negative) 11/16/16 01:30 Urine Urobilinogen <2.0 mg/dL (<2.0) 11/16/16 01:30 Ur Leukocyte Esterase Negative (Negative) 11/16/16 01:30 Microbiology 11/15/16 10:30 Pericardial Fluid Gram Stain - Preliminary 11/15/16 10:30 Pericardial Fluid Body Fluid Culture - Preliminary Sravani albicans 11/16/16 01:30 Urine,Catheterized Urine Culture - Final Assessment and Plan (1) Acute respiratory failure Narrative/Plan: He has not the patient decompensated last evening. He became more tachypneic and tachycardic and her relative hypotension. Also mild increase of his lactic acid. This is almost resolved. He was transferred to the intensive care unit is feeling better. His speech is getting stronger. Was able to self feed his entire dinner without difficulties later in the day. And has no other new acute complaints. Continue supportive care. Current thoracic is following with no plans for any surgical intervention. The patient's MEGHAN drain was cultured and show some Sravani. This colonization of the drain out of the patient. He does not require any specific therapy. Especially since he is so clinically improved at this point in time. Improving leukocytosis improving fevers improving strength. Not likely to have a deep-seated Sravani infection at this time. Currently receiving Zosyn therapy which is allowed a rapid improvement. We'll plan 7 days course of therapy.4 days left Status: Acute
--- NOTE | 2016-11-19 14:26 | PN ---
Mr. Stevenson remains in atrial fibrillation with heart rates about 100 to 110 beats a minute. He denies any shortness of breath. His breath sounds are equal, he improved at the bases but in the upper lobes they are equal. No rhonchi. His white count is mildly elevated and elevated at 14.8. Pulse rate 116 beats a minute, respirations at 20 to 24, blood pressure between 80 to100 mmHg, PLAN: Continue current medications for atrial fibrillation for rate control and anticoagulate.
[2016-11-19 16:45] LABS: Glucose,Whole Blood 110 mg/dL (75-99)
[2016-11-19] MEDS: WARFARIN 5 MG TAB PO SCH (17:34)
--- NOTE | 2016-11-19 18:54 | PN ---
DATE OF SERVICE: 11/18/2016 ATTENDING NOTE: This patient was seen and examined by me yesterday on 11/18/2016. I reviewed the note of my nurse practitioner, Ms. Murray. Discussed and agreed with her. Patient is sitting up in a chair, remains in atrial fibrillation with blood pressure running low. Tolerating his diet. Pulmonary drains remain in place. On exam, afebrile. Heart rate 119, blood pressure 87/54. LUNGS: Decreased breath sounds. CARDIOVASCULAR: Heart sounds regular. Sitting up, awake. ASSESSMENT: 1. Acute on chronic congestive heart failure from diastolic dysfunction; ejection fraction 55 to 60%. 2. Persistent atrial fibrillation, rate uncontrolled. 3. IV heparin monitoring. 4. Coumadin will be started. PLAN: Continue current medication and treatment plan. Antibiotics per Dr. Ramos. Patient remains on IV Zosyn. Follow INR.
[2016-11-19] MEDS: ATORVASTATIN 10 MG TAB PO SCH (20:26)
[2016-11-19 21:09] LABS: Glucose,Whole Blood 120 mg/dL (75-99)
--- NOTE | 2016-11-19 21:52 | PN ---
DATE OF SERVICE: 11/19/2016 PRESENTING COMPLAINT: Shortness of breath. INTERVAL HISTORY: This is a patient who presented with acute on chronic congestive heart failure exacerbation from diastolic dysfunction. Today the patient is sitting up in a chair watching the television. Patient is calm and relaxed; just finished his breakfast. He says he feels pretty good; no complaints at this time. Review of systems was done for constitutional, cardiovascular, GI, pulmonary, with relevant findings as above. CURRENT MEDICATIONS: 1. DuoNeb q.i.d. 2. Amiodarone 200 mg p.o. daily. 3. Aspirin 81 mg p.o. daily. 4. Lipitor 10 mg at bedtime. 5. Lasix. IV q.8 hours. 6. Zaroxolyn 2.5 mg p.o. daily. 7. Lopressor 25 mg b.i.d. PHYSICAL EXAMINATION: VITAL SIGNS: Temperature 97.3, heart rate 118, respiratory rate 23, oxygen saturation 94% on 6 L high-flow nasal cannula. GENERAL APPEARANCE: Patient is sitting up in bed, pale-appearing; however, no acute distress. EYES: Pupils equal. Conjunctivae normal. NECK: JVD not raised. Mass not palpable. LUNGS: Diminished breath sounds bilaterally. Faint crackles noted. RESPIRATORY: Effort normal, unlabored. CARDIOVASCULAR: First and second sounds noted. Moderate edema noted. ABDOMEN: Soft, nontender. Liver and spleen not palpable. CHEST WALL: Patient has 3 MEGHAN drains in his chest wall. The left and the right are draining a scant amount of serosanguineous drainage. The middle one continues to drain a fair amount of drainage, approximately 200 mL per shift. INVESTIGATIONS: White blood cell count 14.8, hemoglobin 7.5, platelet count 514. INR 2.0. Sodium 133. BUN 44, creatinine 1.08. Blood glucose 100. Chest x-ray reveals some improvement to volume status and aeration; loculated pleural effusions remain. ASSESSMENT: 1. Acute on chronic congestive heart failure exacerbation from diastolic dysfunction, ejection fraction 55% to 60%. Slow to respond. 2. Aortic valve replacement and moderate mitral valve repair. 3. Sternal wound dehiscence with pectoralis flap in place, slow to respond. 4. Coronary artery disease with prior coronary artery bypass. 5. Acute hypoxic respiratory failure, on high-flow nasal cannula, slow to respond. 6. Persistent atrial fibrillation, variable rate, on IV heparin, slow to respond. 7. Chronic histoplasmosis, status post biopsy. 8. Status post pleural effusions that were tapped. 9. Hypercholesterolemia. 10. Hypotension. 11. Hypothyroidism. 12. Obesity; body mass index of 34.6. 13. Osteoarthritis of multiple joints bilaterally. 14. Moderate secondary pulmonary hypertension. 15. Gastroesophageal reflux disease. 16. CODE STATUS: FULL. PLAN: Patient has known bilateral loculated pleural effusions. At this point in time Pulmonology has no plans for doing a thoracentesis, as they are too small. Patient remains in atrial fibrillation. Cardiology remains on the case. Low-dose beta ismael and amiodarone continue. Patient is doing well enough today and is being transferred to [facility]. Will continue to follow. Patient was seen and examined by nurse practitioner Karyna Murray, and all elements of the case were discussed with the attending, Dr. Dillon.
[2016-11-20 06:02] LABS: Anisocytosis Slight; Basophils # (A) 0.1 k/uL (0-0.2); Basophils % (A) 0 %; CH 24.9; CHCM 29.2; Eosinophils # (A) 0.2 k/uL (0-0.7); Eosinophils % (A) 1 %; HCT 27.2 % (39.0-53.0); HDW 4.24; HGB 7.6 gm/dL (13.0-17.5); Hypochromasia Marked; Luc # (Auto) 0.21; Luc % (Auto) 2; Lymphocytes # (A) 1.1 k/uL (1.0-4.8); Lymphocytes % (A) 9 %; MCH 23.8 pg (25.0-35.0); MCHC 28.1 g/dL (31.0-37.0); MCV 84.7 fL (80.0-100.0); Mean Platelet Volume 7.8; Monocytes # (A) 0.6 k/uL (0-1.0); Monocytes % (A) 5 %; Neutrophils # (A) 10.4 k/uL (1.3-7.7); Neutrophils % (A) 83 %; Poikilocytosis Moderate; RDW 17.9 % (11.5-15.5); WBC 12.5 k/uL (3.8-10.6); WBC (Perox) 12.83
[2016-11-20 06:16] LABS: INR 2.4 (<1.1); Partial Thromboplastin Time 30.5 sec (22.0-30.0); Prothrombin Time 23.5 sec (9.0-12.0)
[2016-11-20 06:31] LABS: ALT 30 U/L (21-72); AST 19 U/L (17-59); Alkaline Phosphatase 83 U/L (38-126); Anion Gap 9 mmol/L; Blood Urea Nitrogen 38 mg/dL (9-20); Carbon Dioxide 33 mmol/L (22-30); Chloride 91 mmol/L (98-107); Glucose 94 mg/dL (74-99); Non-African American GFR(MDRD) >60 (>60 ml/min/1.73 sqM); Potassium 4.3 mmol/L (3.5-5.1); Sodium 133 mmol/L (137-145); Total Bilirubin 0.8 mg/dL (0.2-1.3); Total Protein 6.1 g/dL (6.3-8.2)
[2016-11-20 06:32] LABS: Glucose,Whole Blood 109 mg/dL (75-99)
[2016-11-20] MEDS: INSULIN LISPRO (humaLOG) 300 UNIT/3 ML VIAL SQ SCH ×4 (06:48→21:36)
[2016-11-20] MEDS: PANTOPRAZOLE 40 MG TABLET PO SCH (06:51)
[2016-11-20] MEDS: LEVOTHYROXINE 75 MCG TAB PO SCH (06:51)
[2016-11-20 07:01] LABS: Glucose,Whole Blood 108 mg/dL (75-99)
--- NOTE | 2016-11-20 09:13 | P.PN ---
Subjective Principal diagnosis: Pulmonary edema, bilateral effusions, A. fib with RVR This is a 71-year-old gentleman with history of aortic valve replacement, mitral valve repair, CABG, chronic persistent atrial fibrillation, hyperlipidemia, hypothyroidism, mediastinal lymphadenopathy with histoplasmosis , moderate pulmonary hypertension, recurrent pleural effusions with thoracentesis, who presented back to the hospital with pleural effusions. Patient was seen in this morning, continues to be in atrial fibrillation with a heart rate around 100. Blood pressure 102/68. 98% on 6 L of oxygen. Overall patient states he is feeling better. Getting stronger. Denies any shortness of breath. INR 2.4. White blood cell count 12.5, hemoglobin 7.6. Potassium 4.3, BUN 38, creatinine 1.1. He continues to be on amiodarone 400 mg daily, along with metoprolol tartrate 25 mg one tablet by mouth 3 times a day. continues to be on IV Lasix, putting out good urine. Objective - Vital Signs Vital signs: Vital Signs Temp 98.1 F 11/20/16 04:00 Pulse 115 H 11/20/16 04:00 Resp 20 11/20/16 04:00 BP 103/68 11/20/16 04:00 Pulse Ox 98 11/20/16 04:00 Intake & Output 11/19/16 11/20/16 11/20/16 18:59 06:59 18:59 Intake Total 270 210 Output Total 1810 1250 Balance -1540 -1040 Weight 110.1 kg 109.7 kg Intake: IV 30 210 0.9 NS 30 160 Piperacillin-Tazobactam 3 50 .375 gm In Dextrose/Water 1 50ml.bag @ 12.5 mls/hr IVPB Q8HR [facility] Rx#: [id number] Oral 240 Output: Drainage 110 Medial MEGHAN Drain 110 Urine 1700 1250 Other: Voiding Method Indwelling Catheter Urinal # Voids 1 - Exam PHYSICAL EXAMINATION: HEENT: Head is atraumatic, normocephalic. Pupils equal, round. Neck is supple. There is no elevated jugular venous pressure. HEART EXAMINATION: Heart S1 and S2 irregularly irregular systolic murmur is heard. Chest wall dressing in place. CHEST EXAMINATION: Lungs reveal diminished breath sounds bilaterally with crackles to the bases. ABDOMEN: Soft, nontender. Bowel sounds are heard. No organomegaly noted. EXTREMITIES: 2+ peripheral pulses with 2+ evidence of peripheral edema and no calf tenderness noted. NEUROLOGIC patient is awake, alert and oriented -3. . - Labs CBC & Chem 7: 11/20/16 05:50 11/20/16 05:50 Labs: Abnormal Lab Results - Last 24 Hours (Table) 11/19/16 11/19/16 11/19/16 Range/Units 12:22 16:35 21:04 WBC (3.8-10.6) k/uL RBC (4.30-5.90) m/uL Hgb (13.0-17.5) gm/dL Hct (39.0-53.0) % MCH (25.0-35.0) pg MCHC (31.0-37.0) g/dL RDW (11.5-15.5) % Plt Count (150-450) k/uL Neutrophils # (1.3-7.7) k/uL PT (9.0-12.0) sec APTT (22.0-30.0) sec Sodium (137-145) mmol/L Chloride (98-107) mmol/L Carbon Dioxide (22-30) mmol/L BUN (9-20) mg/dL POC Glucose (mg/dL) 178 H 110 H 120 H (75-99) mg/dL Calcium (8.4-10.2) mg/dL Total Protein (6.3-8.2) g/dL Albumin (3.5-5.0) g/dL 11/20/16 11/20/16 11/20/16 Range/Units 05:50 05:50 05:50 WBC 12.5 H (3.8-10.6) k/uL RBC 3.20 L (4.30-5.90) m/uL Hgb 7.6 L (13.0-17.5) gm/dL Hct 27.2 L (39.0-53.0) % MCH 23.8 L (25.0-35.0) pg MCHC 28.1 L (31.0-37.0) g/dL RDW 17.9 H (11.5-15.5) % Plt Count 487 H (150-450) k/uL Neutrophils # 10.4 H (1.3-7.7) k/uL PT 23.5 H (9.0-12.0) sec APTT 30.5 H (22.0-30.0) sec Sodium 133 L (137-145) mmol/L Chloride 91 L (98-107) mmol/L Carbon Dioxide 33 H (22-30) mmol/L BUN 38 H (9-20) mg/dL POC Glucose (mg/dL) (75-99) mg/dL Calcium 7.0 L (8.4-10.2) mg/dL Total Protein 6.1 L (6.3-8.2) g/dL Albumin 2.4 L (3.5-5.0) g/dL 11/20/16 11/20/16 Range/Units 06:30 06:34 WBC (3.8-10.6) k/uL RBC (4.30-5.90) m/uL Hgb (13.0-17.5) gm/dL Hct (39.0-53.0) % MCH (25.0-35.0) pg MCHC (31.0-37.0) g/dL RDW (11.5-15.5) % Plt Count (150-450) k/uL Neutrophils # (1.3-7.7) k/uL PT (9.0-12.0) sec APTT (22.0-30.0) sec Sodium (137-145) mmol/L Chloride (98-107) mmol/L Carbon Dioxide (22-30) mmol/L BUN (9-20) mg/dL POC Glucose (mg/dL) 109 H 108 H (75-99) mg/dL Calcium (8.4-10.2) mg/dL Total Protein (6.3-8.2) g/dL Albumin (3.5-5.0) g/dL Microbiology - Last 24 Hours (Table) 11/15/16 10:30 Gram Stain - Final Pericardial Fluid Body Fluid Culture - Final Sravani albicans Assessment and Plan (1) Diastolic CHF, acute on chronic Status: Acute (2) S/P AVR (aortic valve replacement) Status: Acute (3) S/P MVR (mitral valve repair) Status: Acute (4) Hx of CABG Status: Acute (5) Pleural effusion Status: Acute (6) Chronic a-fib Status: Acute (7) Pulmonary HTN Status: Acute (8) Histoplasmosis Status: Acute (9) Hypothyroid Status: Acute Plan: From cardiology's perspective, we will recommend to continue the amiodarone, along with the metoprolol tartrate 25 mg one tablet by mouth 3 times a day. Continue IV Lasix. DNP note has been reviewed, I agree with a documented findings and plan of care. Patient was seen and examined.
[2016-11-20] MEDS: METOLAZONE 2.5 MG TAB PO SCH (09:17)
[2016-11-20] MEDS: IPRATROPIUM-ALBUTEROL 3 ML NEB INHALATION SCH ×4 (09:17→19:41)
[2016-11-20] MEDS: AMIODARONE 200 MG TAB PO SCH (09:18)
[2016-11-20] MEDS: METOPROLOL TARTRATE 25 MG TAB PO SCH ×2 (09:18→16:47)
[2016-11-20] MEDS: ASPIRIN 81 MG CHEW PO SCH (09:18)
[2016-11-20] MEDS: FUROSEMIDE 10 MG/ML 4 ML VIAL IV SCH (09:18)
[2016-11-20] MEDS: PIPERACILLIN-TAZOBACTAM 3.375 GM in DEXTROSE/WATER 1 50ML.BAG IVPB SCH ×2 (09:26→16:47)
--- NOTE | 2016-11-20 11:34 | P.PN ---
Subjective Principal diagnosis: Pulmonary edema and bilateral pleural effusions, atrial fibrillation with RVR. 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 Patient was eventually discharged home after a relatively prolonged hospital course, patient was readmitted on October 06 through October 30 with increased shortness of breath, and he was found to have congestive heart failure, sterility 1 dehiscence requiring sternal exploration and debridement and wound closure with bilateral pectoralis muscle flaps. During that admission , patient also required left sided chest tube placement, right sided thoracentesis, patient was eventually extubated, and transferred to rehab at [facility] under the care of Dr. Reyes. However after few days, patient developed congestive heart failure, worsening pleural effusion requiring thoracentesis again, loculated pleural effusion on the right side was noted based on ultrasound and CT of the chest, there was some purulence noted in his MEGHAN drains which are mediastinal drains, hence arrangements were made to transfer the patient back to [facility]. Patient was initially admitted to the intensive care unit, placed on broad-spectrum antibiotics, he is on heparin drip, and his last hospitalization while at [facility], his sputum was positive for Haemophilus influenza and Serratia marcescens. At any rate patient is to be seen by many consultants during this transfer, and I was asked to see him on consultation today. Patient was placed back on his usual medications, diuretics, I reviewed her chest x-ray, and I felt that the patient has bilateral pleural effusions, small at this point, will not require thoracentesis at least not for now. Patient was reevaluated today on 11/16/2016, breathing a bit easier, however the patient is requiring levo fed for low blood pressure. Remains in atrial fibrillation, but rate seems to be better controlled today. Remains on antibiotics for presumptive infectious process, however cultures have been negative so far. Chest x-ray continues to show bilateral pleural effusions and congestive heart failure changes. Lasix is presently on hold. Since the blood pressure was marginal earlier today requiring transferring back to the ICU. Patient was reevaluated today on 11/17/2016, clinically the patient seems to be doing much better, breathing a lot easier. Blood pressure remains marginal. Chest x-ray is showing some congestive heart failure changes, bilateral pleural effusions, ultrasound on the chest showed loculated pleural effusion, the amount of the fluid on both lungs are small, and not much to consider safe thoracentesis. Hence no plans to do thoracentesis at this point mostly because of the fluid is loculated and because the size of the fluid is rather small smaller on the right than on the left. Patient was placed back on Coumadin, hence we will continue with the Coumadin for anticoagulation. Given a dose of Lasix this morning, 40 mg IV push, and we'll likely continue on a daily basis depending and is on his overall clinical condition. Patient is feeling again much better today, less short of breath. And he seems to be quite appropriate. Labs showed WBC count of 15 hemoglobin of 7.1. INR is 1.4. Electrolytes showed low potassium of 3.1 BUN is 53 creatinine is 1.17. Hence will be cautious with diuretics. On 11/18/2016, patient seems to be doing a bit better, less shortness of breath, chest x-ray is showing less congestive heart failure, his atrial fibrillation seems to be better controlled, however his blood pressure is marginal, mean is in the low 60s. Urine output is excellent. All his labs were reviewed. Hemoglobin is 7.4 unchanged. WBC count is 15.5. PTT is 59. Electrolytes are normal except for low potassium of 3.3 BUN is 47 creatinine is 1.06. Patient remains on 1 Lasix dose daily. And that seems to be working well for him. It is 40 mg IV push every morning. Chest x-ray from today was reviewed showing improvement. Ultrasound which was done yesterday was also reviewed, and the patient clearly does not need thoracentesis at this point. On 11/19/2016, patient continues to gradually improve, he seems to be a bit more awake, more appropriate, and bit stronger, and he denies any shortness of breath. Continues to have issues with his atrial fibrillation, blood pressure remains marginal, but urine output is excellent. Patient is hemodynamically stable at this point. And not requiring any pressors. Microbiology from the fluid was reviewed, and Dr. Ramos is aware of the Sravani from the MEGHAN drain. Please refer to his note. WBC count is 14.8 hemoglobin is 7.5 INR is therapeutic hence I will discontinue heparin. Electrolytes are normal. BUN is 44 creatinine is 1.08. On 11/20/2016, patient is about the same, sitting in chair, in no distress, seems to be quite appropriate. Remains on the same medications for his multiple medical problems. Denies shortness of breath, no cough, no wheezing, no chest pain. Labs showed relatively normal CBC, hemoglobin remains low at 7.6. INR is 2.4 electrolytes and renal profile are about the same. Objective - Vital Signs Vital signs: Vital Signs Temp 98.1 F 11/20/16 04:00 Pulse 100 11/20/16 09:31 Resp 18 11/20/16 08:00 BP 87/64 11/20/16 08:00 Pulse Ox 94 L 11/20/16 08:00 Intake & Output 11/19/16 11/20/16 11/20/16 18:59 06:59 18:59 Intake Total 270 210 Output Total 1810 1250 Balance -1540 -1040 Weight 110.1 kg 109.7 kg 109.7 kg Intake: IV 30 210 0.9 NS 30 160 Piperacillin-Tazobactam 3 50 .375 gm In Dextrose/Water 1 50ml.bag @ 12.5 mls/hr IVPB Q8HR [facility] [place] Rx#: [id number] Oral 240 Output: Drainage 110 Medial MEGHAN Drain 110 Urine 1700 1250 Other: Voiding Method Indwelling Catheter Urinal Urinal # Voids 1 - Exam Physical Exam: Revealed a 71-year-old white male, cachectic, pale looking, not in respiratory distress HEENT:[Neck ithroughout, nos supple.] [No neck masses.] [No thyromegaly.] [No JVD.] Chest: [Diminished breath sounds and crackles at the bases were noted. No rhonchi no wheezes.] Cardiac Exam: [Irregular irregular rhythm, dressing on sternal wound is noted, MEGHAN drains 2 were noted. Abdomen: [Soft, nontender, no megaly, no rebound, no guarding, normal bowel sounds.] Extremities: [No clubbing, 2+ bipedal edema, no cyanosis.] Neurological Exam: [No focal neurologic deficit.] - Labs CBC & Chem 7: 11/20/16 05:50 05/27/17 05:50 Labs: Abnormal Lab Results - Last 24 Hours (Table) 11/19/16 11/19/16 11/19/16 Range/Units 12:22 16:35 21:04 WBC (3.8-10.6) k/uL RBC (4.30-5.90) m/uL Hgb (13.0-17.5) gm/dL Hct (39.0-53.0) % MCH (25.0-35.0) pg MCHC (31.0-37.0) g/dL RDW (11.5-15.5) % Plt Count (150-450) k/uL Neutrophils # (1.3-7.7) k/uL PT (9.0-12.0) sec APTT (22.0-30.0) sec Sodium (137-145) mmol/L Chloride (98-107) mmol/L Carbon Dioxide (22-30) mmol/L BUN (9-20) mg/dL POC Glucose (mg/dL) 178 H 110 H 120 H (75-99) mg/dL Calcium (8.4-10.2) mg/dL Total Protein (6.3-8.2) g/dL Albumin (3.5-5.0) g/dL 11/20/16 11/20/16 11/20/16 Range/Units 05:50 05:50 05:50 WBC 12.5 H (3.8-10.6) k/uL RBC 3.20 L (4.30-5.90) m/uL Hgb 7.6 L (13.0-17.5) gm/dL Hct 27.2 L (39.0-53.0) % MCH 23.8 L (25.0-35.0) pg MCHC 28.1 L (31.0-37.0) g/dL RDW 17.9 H (11.5-15.5) % Plt Count 487 H (150-450) k/uL Neutrophils # 10.4 H (1.3-7.7) k/uL PT 23.5 H (9.0-12.0) sec APTT 30.5 H (22.0-30.0) sec Sodium 133 L (137-145) mmol/L Chloride 91 L (98-107) mmol/L Carbon Dioxide 33 H (22-30) mmol/L BUN 38 H (9-20) mg/dL POC Glucose (mg/dL) (75-99) mg/dL Calcium 7.0 L (8.4-10.2) mg/dL Total Protein 6.1 L (6.3-8.2) g/dL Albumin 2.4 L (3.5-5.0) g/dL 11/20/16 11/20/16 Range/Units 06:30 06:34 WBC (3.8-10.6) k/uL RBC (4.30-5.90) m/uL Hgb (13.0-17.5) gm/dL Hct (39.0-53.0) % MCH (25.0-35.0) pg MCHC (31.0-37.0) g/dL RDW (11.5-15.5) % Plt Count (150-450) k/uL Neutrophils # (1.3-7.7) k/uL PT (9.0-12.0) sec APTT (22.0-30.0) sec Sodium (137-145) mmol/L Chloride (98-107) mmol/L Carbon Dioxide (22-30) mmol/L BUN (9-20) mg/dL POC Glucose (mg/dL) 109 H 108 H (75-99) mg/dL Calcium (8.4-10.2) mg/dL Total Protein (6.3-8.2) g/dL Albumin (3.5-5.0) g/dL Microbiology - Last 24 Hours (Table) 11/15/16 10:30 Gram Stain - Final Pericardial Fluid Body Fluid Culture - Final Sravani albicans Assessment and Plan Plan: Impression: 1 acute on chronic congestive heart failure secondary to diastolic dysfunction and possibly some component of LV dysfunction based on the echocardiogram. 2 recent aortic valve replacement and mitral valve repair. 3 recent sternal wound dehiscence requiring pectoralis muscle flap. 4 history of coronary artery disease and previous CABG. 5 acute hypoxic respiratory failure secondary to congestive heart failure, and bilateral pleural effusions. 6 persistent atrial fibrillation with variable rate, patient remains on IV heparin. 7 history of pleural effusions requiring thoracentesis 2 on the right side. Follow-up ultrasound of the chest today showed small amount of fluid on both sides, the fluid is loculated, and safety thoracentesis cannot be done. Hence no plans to tap the patient today mostly because of the size is small, not to mention the fluid is loculated in both sides. 8 moderate severe pulmonary hypertension. 9 history of chronic histoplasmosis. 10 history of degenerative joint disease. 11 history of GERD without esophagitis. 12 history of hypothyroidism. 13 history of coronary artery disease and previous CABG. Recommendation: Continue present treatment plan including diuretics, antibiotics , antimicrobial therapy as advised by infectious disease. Consider discharge planning to rehab in the next 2 days. Time with Patient: Less than 30
[2016-11-20] MEDS ORDERED: LISINOPRIL 5 MG TAB PO SCH (11:45)
--- NOTE | 2016-11-20 12:00 | PN ---
DATE OF SERVICE: 11/19/2016 ATTENDING NOTE: This patient was seen and examined by me on 11/19/2016. I reviewed the note of my nurse practitioner, Ms. Murray. Discussed and agreed with the same. Patient with multiple issues doing better. Tolerating his meal. Remains in A. fib. Blood pressure is still running on the lower side. Per cardiothoracic, no intervention. Antibiotics are to continue. Course will be completed as per Dr. Ramos. ON EXAM: Sitting up, slightly short of breath. LUNGS: Decreased breath sounds. CARDIOVASCULAR: Heart sounds irregular. Edema is present. PSYCH: Alert and oriented x3. ASSESSMENT: Multiple medical problems including persistent atrial fibrillation, hypotension. PLAN: No further intervention by cardiothoracic or pulmonary. Patient was started on Coumadin, expect the INR to be therapeutic soon. Seen by Dr. Christina for rehab placement. Will follow.
[2016-11-20 12:20] LABS: Glucose,Whole Blood 193 mg/dL (75-99)
[2016-11-20] MEDS: MULTIVITAMINS, THERA 1 EACH TAB PO SCH (12:25)
[2016-11-20] MEDS: FUROSEMIDE 40 MG TAB PO SCH (16:47)
[2016-11-20 17:04] LABS: Glucose,Whole Blood 170 mg/dL (75-99)
[2016-11-20] MEDS: WARFARIN 5 MG TAB PO SCH (17:38)
[2016-11-20] MEDS: ATORVASTATIN 10 MG TAB PO SCH (20:16)
[2016-11-20 21:29] LABS: Glucose,Whole Blood 118 mg/dL (75-99)
--- NOTE | 2016-11-20 22:34 | PN ---
DATE OF SERVICE: 11/20/2016 This 71-year-old gentleman with a past history of multiple medical problems, including CAD, CABG also had aortic valve repair and mitral valve repair. The patient had CHF acute exacerbation with acute on chronic systolic dysfunction. The patient also had atrial fibrillation with a fast ventricular rate, which is increasing with activity. Multiple consultants, including Cardiology and Pulmonology, are following the patient closely as well as Cardiothoracic Surgery. The patient also has a diagnosis of histoplasmosis. The patient is being closely monitored at this time. PAST MEDICAL HISTORY: Reviewed. REVIEW OF SYSTEMS: CARDIOVASCULAR: No angina or palpitations. RESPIRATORY: As mentioned earlier. GI: As mentioned earlier. : No dysuria. NERVOUS: No numbness or weakness. Current medications are reviewed and include: 1. Tylenol 650 q.4 p.r.n. 2. [place] 10 mg q.4 p.r.n. 3. Albuterol/Atrovent q.i.d. and p.r.n. 4. Cordarone 400 mg p.o. daily. 5. Aspirin 81 mg. 6. Lipitor 10 mg every 6 hours. 7. Lasix 40 mg p.o. b.i.d. 8. Humalog scale. 9. Synthroid 150 mcg p.o. daily. 10. Zaroxolyn 2.5 mg daily. 11. Lopressor 25 mg p.o. daily. 12. Potassium protocol. 13. Multivitamin. 14. Protonix. 15. Zosyn 3.375 IV every 6 hours. 16. Coumadin. 17. Senokot. PHYSICAL EXAM: The patient is alert and oriented x3. Pulse is 140 and irregular, respirations 16, temperature is normal, pulse ox is 92% on 2L. Blood pressure 102/57. HEENT: Conjunctivae normal. Oral mucosa moist. NECK: Jugular venous distension to the root of the neck. CARDIOVASCULAR: S1 and S2 irregular, tachycardic. Ejection systolic murmur, status post recent surgery. RESPIRATORY: Breath sounds diminished in the bases. A few scattered rhonchi and crackles. ABDOMEN: Soft, nontender. No mass palpable. LEGS: No edema. No swelling. NERVOUS SYSTEM: No focal deficits. LABS: WBC 12.7, hemoglobin 7.6, INR is 2.4. Accu-Cheks 108. Albumin is 2.4. ASSESSMENT: 1. Congestive heart failure acute exacerbation, with acute on chronic diastolic dysfunction, ejection 50% to 60%. 2. History of recent aortic valve repair and replacement as well as mitral valve repair. 3. History of sternal wound dehiscence with a pectoral flap placed, slow to respond. 4. History of coronary artery disease, coronary artery bypass grafting. 5. Acute hypoxic respiratory failure on high-volume nasal cannula, slow to respond. 6. Paroxysmal atrial fibrillation with a fast ventricular rate. 7. Chronic histoplasmosis, status post biopsy. 8. History of pleural effusions, which are tapped. 9. Hypercholesterolemia. 10. Hypertension. 11. Hypothyroidism. 12. Obesity with body mass index 54.6. 13. History of degenerative joint disease. 14. Moderate secondary pulmonary hypertension. 15. History of gastroesophageal reflux disease. 16. FULL CODE. RECOMMENDATION: In this 71-year-old gentleman who presented with multiple complex medical issues, we will monitor the patient closely. Continue the current medications, continue with symptomatic treatment. Will continue to monitor. Continue with current medications. Cardiology is being consulted with Alvin brice. with fast ventricular rate. INR is 2.4. Will continue to monitor. Prognosis guarded. Further recommendations to follow.
[2016-11-21] MEDS: PIPERACILLIN-TAZOBACTAM 3.375 GM in DEXTROSE/WATER 1 50ML.BAG IVPB SCH ×4 (00:35→23:52)
[2016-11-21 01:45] LABS: Glucose,Whole Blood 133 mg/dL (75-99)
[2016-11-21] MEDS: METOPROLOL TARTRATE 25 MG TAB PO SCH ×4 (04:48→21:12)
[2016-11-21 06:11] LABS: Glucose,Whole Blood 101 mg/dL (75-99)
[2016-11-21] MEDS: INSULIN LISPRO (humaLOG) 300 UNIT/3 ML VIAL SQ SCH ×4 (06:49→21:12)
[2016-11-21] MEDS: LEVOTHYROXINE 75 MCG TAB PO SCH (07:01)
[2016-11-21] MEDS: PANTOPRAZOLE 40 MG TABLET PO SCH (07:01)
--- NOTE | 2016-11-21 07:40 | P.PN ---
Progress Note - Text CV Surgery Nursing POD #55 aortic valve replacement, mitral valve repair, mediastinal lymph node biopsy. POD #35 muscle flap closure after sternal wound dehiscence. Paroxysmal atrial fibrillation currently treated with amiodarone and Coumadin. Patient awake and alert, no distress noted, no specific complaints. He is sitting up to bedside chair. Vital Signs: Afebrile Vital Signs - 24 hr 11/19/16 11/19/16 11/19/16 12:00 15:33 15:46 Temperature 97.4 F L Pulse Rate 105 H 113 H 112 H Pulse Rate [ Vehicle Safety Inspector ] Respiratory 23 Rate Blood Pressure [Right Arm] O2 Sat by Pulse 97 Oximetry 11/19/16 11/19/16 11/19/16 16:38 20:00 21:09 Temperature 97.6 F Pulse Rate 110 H Pulse Rate [ 123 H 115 H Vehicle Safety Inspector ] Respiratory 20 18 Rate Blood Pressure 118/65 101/65 [Right Arm] O2 Sat by Pulse 94 L 97 Oximetry 11/19/16 11/20/16 11/20/16 21:20 00:00 04:00 Temperature 97.1 F L 98.1 F Pulse Rate 108 H Pulse Rate [ 120 H 115 H Vehicle Safety Inspector ] Respiratory 18 18 Rate Blood Pressure 144/73 103/68 [Right Arm] O2 Sat by Pulse 99 98 Oximetry 11/20/16 11/20/16 11/20/16 08:00 09:17 09:31 Temperature Pulse Rate 100 100 Pulse Rate [ 89 Vehicle Safety Inspector ] Respiratory 18 Rate Blood Pressure 87/64 [Right Arm] O2 Sat by Pulse 94 L Oximetry Labs: Short CBC 11/20/16 Range/Units 05:50 WBC 12.5 H (3.8-10.6) k/uL Hgb 7.6 L (13.0-17.5) gm/dL Hct 27.2 L (39.0-53.0) % Plt Count 487 H (150-450) k/uL Neutrophils # 10.4 H (1.3-7.7) k/uL BMP 11/20/16 05:50 Sodium 133 L Potassium 4.3 Chloride 91 L Carbon Dioxide 33 H BUN 38 H Creatinine 1.10 Glucose 94 Calcium 7.0 L Liver Function 11/20/16 Range/Units 05:50 Total Bilirubin 0.8 (0.2-1.3) mg/dL AST 19 (17-59) U/L ALT 30 (21-72) U/L Alkaline Phosphatase 83 (38-126) U/L Albumin 2.4 L (3.5-5.0) g/dL PT/INR, D-dimer PT 23.5 sec (9.0-12.0) H 11/20/16 05:50 INR 2.4 (<1.1) 11/20/16 05:50 Microbiology 11/15/16 10:30 Pericardial Fluid Gram Stain - Final 11/15/16 10:30 Pericardial Fluid Body Fluid Culture - Final Sravani albicans 11/16/16 01:30 Urine,Catheterized Urine Culture - Final Lungs: Essentially clear throughout, diminished bilateral bases. Respirations are symmetrical and unlabored. O2 sat: 95% on 2 L nasal cannula. I/S: 500-750 mL, reviewed with the patient important of using his incentive spirometry every hour while awake. The patient did give a good return demonstration on his incentive spirometry. Heart: S1S2, irregular rhythm and tachycardic rate, negative for S3, gallop or murmur. Remote telemetry showing atrial fibrillation heart rate 124. Chest incision clean with sternal dressing clean and dry and intact. No drainage noted. MEGHAN drains in place to his anterior chest, left MEGHAN drain with 15 mL output in the last 24 hours. Medial MEGHAN drain with 110 mL output in the last 24 hours. Right MEGHAN drain 15 mL output in the last 24 hours. Generalized +1 edema. Abdomen: Soft, Positive bowel sounds present in all 4 quadrants. His last documented bowel movement was on 11/19/2016. CBGs: 108-178 mg/dL in the last 24 hours. U/O: Adequate. 24 hr Total: Intake & Output 11/18/16 11/19/16 11/20/16 11/21/16 06:59 06:59 06:59 06:59 Intake Total 2069.12 2769.626 480 Output Total 3280 3030 3060 Balance -1210.88 -260.374 -2580 Weight 110.1 kg 109.7 kg 109.7 kg Active Medications Acetaminophen (Tylenol Tab) 650 mg PO Q4HR PRN PRN Reason: Fever and/ or mild Pain Hydrocodone Bitart/Acetaminophen ([place] 10) 1 each PO Q4H PRN PRN Reason: Pain 5-10 Last Admin: 11/18/16 04:28 Dose: 1 each Hydrocodone Bitart/Acetaminophen ([place] 5-325) 1 each PO Q4HR PRN PRN Reason: Pain 1-4 Albuterol/Ipratropium (Duoneb 0.5 Mg-3 Mg/3 Ml Soln) 3 ml INHALATION RT-QID PRN PRN Reason: Shortness Of Breath Or Wheezing Last Admin: 11/15/16 07:57 Dose: 3 ml Albuterol/Ipratropium (Duoneb 0.5 Mg-3 Mg/3 Ml Soln) 3 ml INHALATION RT-QID [facility] Last Admin: 11/20/16 09:17 Dose: 3 ml Amiodarone HCl (Cordarone) 400 mg PO DAILY [facility] Last Admin: 11/20/16 09:18 Dose: 400 mg Aspirin (Aspirin) 81 mg PO DAILY [facility] Last Admin: 11/20/16 09:18 Dose: 81 mg Atorvastatin Calcium (Lipitor) 10 mg PO HS [facility] Last Admin: 11/19/16 20:26 Dose: 10 mg Furosemide (Lasix) 40 mg PO BID@0900,1600 [facility] Piperacillin/Tazobactam/ (Dextrose 3.375 gm/ IV Solution) 50 mls @ 12.5 mls/hr IVPB Q8HR [facility] Last Admin: 11/20/16 09:26 Dose: 12.5 mls/hr Insulin Human Lispro (Humalog) 0 unit SQ ACHS [facility] PRN Reason: Protocol Last Admin: 11/20/16 06:48 Dose: Not Given Levothyroxine Sodium (Synthroid) 150 mcg PO 0630 [facility] Last Admin: 11/20/16 06:51 Dose: 150 mcg Metolazone (Zaroxolyn) 2.5 mg PO DAILY [facility] Last Admin: 11/20/16 09:17 Dose: 2.5 mg Metoprolol Tartrate (Lopressor) 25 mg PO TID [facility] Last Admin: 11/20/16 09:18 Dose: 25 mg Miscellaneous Information (Potassium Per Protocol) 1 each MISCELLANE DAILY PRN ; Protocol PRN Reason: Per Protocol Miscellaneous Information (Magnesium Per Protocol) 1 each MISCELLANE DAILY PRN ; Protocol PRN Reason: Per Protocol Miscellaneous Information (Potassium Per Protocol) 1 each MISCELLANE DAILY PRN ; Protocol PRN Reason: Per Protocol Miscellaneous Information (Potassium Per Protocol) 1 each MISCELLANE DAILY PRN ; Protocol PRN Reason: Per Protocol Multivitamins (Theragran) 1 each PO DAILY@1200 [facility] Last Admin: 11/19/16 12:46 Dose: 1 each Pantoprazole Sodium (Protonix) 40 mg PO AC-BRKFST [facility] Last Admin: 11/20/16 06:51 Dose: 40 mg Senna (Senokot) 8.6 mg PO BID PRN PRN Reason: Constipation Warfarin Sodium (Coumadin) 5 mg PO DAILY@1800 [facility] Last Admin: 11/19/16 17:34 Dose: 5 mg Plan: 1. Continue aspirin, amiodarone, Lopressor, Lasix, Zaroxolyn. 2. Body fluid culture from MEGHAN drains sent, final report demonstrating Sravani albicans. Antibiotics per pulmonology/ID. 3. Wean O2 as tolerated. Encourage incentive spirometry use. 4. Medical comorbidities to be managed by internal medicine. 5. Encourage increased activity. Physical therapy to follow 6. INR is 2.4. He is on Coumadin 5 mg by mouth daily. 7. Increase activity as tolerated, physical therapy is following. 8. Discharge planning is in place.
[2016-11-21] MEDS: IPRATROPIUM-ALBUTEROL 3 ML NEB INHALATION SCH ×4 (08:25→20:13)
[2016-11-21] MEDS: METOLAZONE 2.5 MG TAB PO SCH (08:40)
[2016-11-21] MEDS: AMIODARONE 200 MG TAB PO SCH (08:40)
[2016-11-21] MEDS: ASPIRIN 81 MG CHEW PO SCH (08:40)
[2016-11-21] MEDS: FUROSEMIDE 40 MG TAB PO SCH ×2 (08:40→16:44)
[2016-11-21 09:00] LABS: INR 3.4 (<1.1); Prothrombin Time 33.4 sec (9.0-12.0)
[2016-11-21 09:02] LABS: ALT 27 U/L (21-72); AST 21 U/L (17-59); Alkaline Phosphatase 87 U/L (38-126); Anion Gap 8 mmol/L; Blood Urea Nitrogen 38 mg/dL (9-20); Calcium 7.1 mg/dL (8.4-10.2); Carbon Dioxide 35 mmol/L (22-30); Chloride 90 mmol/L (98-107); Glucose 139 mg/dL (74-99); Non-African American GFR(MDRD) >60 (>60 ml/min/1.73 sqM); Sodium 133 mmol/L (137-145); Total Bilirubin 1.1 mg/dL (0.2-1.3); Total Protein 6.4 g/dL (6.3-8.2)
[2016-11-21 09:15] LABS: Anisocytosis Slight; CHCM 29.9; HCT 27.3 % (39.0-53.0); HDW 4.49; Hypochromasia Marked; MCH 24.3 pg (25.0-35.0); MCHC 29.2 g/dL (31.0-37.0); MCV 83.2 fL (80.0-100.0); Mean Platelet Volume 7.8; Poikilocytosis Moderate; RBC 3.29 m/uL (4.30-5.90); WBC 13.6 k/uL (3.8-10.6)
--- NOTE | 2016-11-21 11:57 | PN ---
Mr. Stevenson is sitting comfortably in chair. He still appears short of breath and his lower extremity edema persists. He still has a drain under his flap. He has bilateral pleural effusions and is being treated for this. On examination, he is afebrile at 97 degrees Fahrenheit, pulse rate is 118 beats a minute. He has atrial fibrillation/atrial tachycardia. Blood pressure was low and this is chronic. ( ) has been the case, 97/68 mmHg. This is where his usual blood pressure is. Breath sounds are reduced bilaterally especially at the bases. Heart sounds S1, S2 are tachycardic. Lower extremity edema is noted. Abdomen is soft. SUGGEST: Continue IV diuresis and rate control.
--- NOTE | 2016-11-21 12:10 | P.PN ---
Progress Note - Text CV Surgery Nursing CV Surgery Nursing POD #56 aortic valve replacement, mitral valve repair, mediastinal lymph node biopsy. POD #36 muscle flap closure after sternal wound dehiscence. Paroxysmal atrial fibrillation currently treated with amiodarone and Coumadin. Patient awake and alert, no distress noted, no specific complaints. He is sitting up to bedside chair. Vital Signs: Afebrile Vital Signs - 24 hr 11/20/16 11/20/16 11/20/16 15:26 15:34 16:00 Temperature Pulse Rate 90 92 Pulse Rate [ 114 H [employer] ] Respiratory 16 Rate Blood Pressure 100/57 [Right Arm] O2 Sat by Pulse 92 L Oximetry 11/20/16 11/20/16 11/20/16 19:33 19:44 20:00 Temperature 96.9 F L Pulse Rate 80 80 Pulse Rate [ 110 H [employer] ] Respiratory 16 Rate Blood Pressure 96/66 [Right Arm] O2 Sat by Pulse 94 L Oximetry 11/21/16 11/21/16 11/21/16 00:00 04:00 08:00 Temperature 97.7 F 96.8 F L 97.0 F L Pulse Rate Pulse Rate [ 118 H 111 H 118 H [employer] ] Respiratory 16 18 18 Rate Blood Pressure 87/59 91/61 97/68 [Right Arm] O2 Sat by Pulse 94 L 91 L 92 L Oximetry 11/21/16 11/21/16 08:25 08:35 Temperature Pulse Rate 82 84 Pulse Rate [ [employer] ] Respiratory Rate Blood Pressure [Right Arm] O2 Sat by Pulse Oximetry Labs: Short CBC 11/21/16 Range/Units 08:33 WBC 13.6 H (3.8-10.6) k/uL Hgb 8.0 L (13.0-17.5) gm/dL Hct 27.3 L (39.0-53.0) % Plt Count 568 H (150-450) k/uL BMP 11/21/16 08:33 Sodium 133 L Potassium 4.0 Chloride 90 L Carbon Dioxide 35 H BUN 38 H Creatinine 1.11 Glucose 139 H Calcium 7.1 L Liver Function 11/21/16 Range/Units 08:33 Total Bilirubin 1.1 (0.2-1.3) mg/dL AST 21 (17-59) U/L ALT 27 (21-72) U/L Alkaline Phosphatase 87 (38-126) U/L Albumin 2.6 L (3.5-5.0) g/dL Lungs: Few scattered crackles to his bilateral bases, essentially clear to his upper lobes. Respirations are symmetrical and unlabored. O2 sat: 92% on 2 L nasal cannula. I/S: 500 mL, reviewed with the patient important of using his incentive spirometry every hour while awake. The patient did demonstrate good use of his incentive spirometry. Heart: S1S2, irregular rhythm with a tachycardic rate. Negative for S3, gallop or murmur. Remote telemetry showing atrial fibrillation heart rate 122. Chest incision clean with sternal dressing clean and dry and intact. No drainage noted. MEGHAN drains in place to his anterior chest, left MEGHAN drain with 15 mL output in the last 24 hours. Medial MEGHAN drain with 100 mL output in the last 24 hours. Right MEGHAN drain 15 mL output in the last 24 hours. Abdomen: Soft, Positive bowel sounds present in all 4 quadrants. Last documented bowel movement on 11/19/2016. CBGs: 101-170 mg/dL in the last 24 hours. U/O: Adequate. 24 hr Total: Intake & Output 11/19/16 11/20/16 11/21/16 11/22/16 06:59 06:59 06:59 06:59 Intake Total 2769.626 480 460 236 Output Total 3030 3060 1565 Balance -260.374 -2580 -1105 236 Weight 109.7 kg 108.5 kg 108.5 kg Active Medications Acetaminophen (Tylenol Tab) 650 mg PO Q4HR PRN PRN Reason: Fever and/ or mild Pain Hydrocodone Bitart/Acetaminophen ([place] 10) 1 each PO Q4H PRN PRN Reason: Pain 5-10 Last Admin: 11/18/16 04:28 Dose: 1 each Hydrocodone Bitart/Acetaminophen ([place] 5-325) 1 each PO Q4HR PRN PRN Reason: Pain 1-4 Albuterol/Ipratropium (Duoneb 0.5 Mg-3 Mg/3 Ml Soln) 3 ml INHALATION RT-QID PRN PRN Reason: Shortness Of Breath Or Wheezing Last Admin: 11/15/16 07:57 Dose: 3 ml Albuterol/Ipratropium (Duoneb 0.5 Mg-3 Mg/3 Ml Soln) 3 ml INHALATION RT-QID [facility] Last Admin: 11/21/16 11:48 Dose: 3 ml Amiodarone HCl (Cordarone) 400 mg PO DAILY [facility] Last Admin: 11/21/16 08:40 Dose: 400 mg Aspirin (Aspirin) 81 mg PO DAILY [facility] Last Admin: 11/21/16 08:40 Dose: 81 mg Atorvastatin Calcium (Lipitor) 10 mg PO HS [facility] Last Admin: 11/20/16 20:16 Dose: 10 mg Furosemide (Lasix) 40 mg PO BID@0900,1600 [facility] Last Admin: 11/21/16 08:40 Dose: 40 mg Piperacillin/Tazobactam/ (Dextrose 3.375 gm/ IV Solution) 50 mls @ 12.5 mls/hr IVPB Q8HR [facility] Last Admin: 11/21/16 08:40 Dose: 12.5 mls/hr Insulin Human Lispro (Humalog) 0 unit SQ ACHS [facility] PRN Reason: Protocol Last Admin: 11/21/16 06:49 Dose: Not Given Levothyroxine Sodium (Synthroid) 150 mcg PO 0630 [facility] Last Admin: 11/21/16 07:01 Dose: 150 mcg Metolazone (Zaroxolyn) 2.5 mg PO DAILY [facility] Last Admin: 11/21/16 08:40 Dose: 2.5 mg Metoprolol Tartrate (Lopressor) 25 mg PO TID [facility] Last Admin: 11/21/16 08:40 Dose: 25 mg Miscellaneous Information (Potassium Per Protocol) 1 each MISCELLANE DAILY PRN ; Protocol PRN Reason: Per Protocol Miscellaneous Information (Magnesium Per Protocol) 1 each MISCELLANE DAILY PRN ; Protocol PRN Reason: Per Protocol Miscellaneous Information (Potassium Per Protocol) 1 each MISCELLANE DAILY PRN ; Protocol PRN Reason: Per Protocol Miscellaneous Information (Potassium Per Protocol) 1 each MISCELLANE DAILY PRN ; Protocol PRN Reason: Per Protocol Multivitamins (Theragran) 1 each PO DAILY@1200 [facility] Last Admin: 11/20/16 12:25 Dose: 1 each Pantoprazole Sodium (Protonix) 40 mg PO AC-BRKFST [facility] Last Admin: 11/21/16 07:01 Dose: 40 mg Senna (Senokot) 8.6 mg PO BID PRN PRN Reason: Constipation Warfarin Sodium (Coumadin) 5 mg PO DAILY@1800 [facility] Last Admin: 11/20/16 17:38 Dose: 5 mg Plan: 1. Continue aspirin, amiodarone, Lopressor, Lasix, Zaroxolyn. 2. Body fluid culture from MEGHAN drains sent, final report demonstrating Sravani albicans. Antibiotics per pulmonology/ID. 3. Wean O2 as tolerated. Encourage incentive spirometry use. 4. Medical comorbidities to be managed by internal medicine. 5. Encourage increased activity. Physical therapy to follow 6. INR is 3.4. Hold Coumadin today. 7. Increase activity as tolerated, physical therapy is following. 8. MEGHAN drains to remain in place for now. 9. Discharge planning is in place.
[2016-11-21] MEDS: MULTIVITAMINS, THERA 1 EACH TAB PO SCH (12:25)
[2016-11-21 12:31] LABS: Glucose,Whole Blood 131 mg/dL (75-99)
--- NOTE | 2016-11-21 12:42 | P.PN ---
Subjective Principal diagnosis: Pulmonary edema and bilateral pleural effusions, atrial fibrillation with RVR. 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 Patient was eventually discharged home after a relatively prolonged hospital course, patient was readmitted on October 06 through October 30 with increased shortness of breath, and he was found to have congestive heart failure, sterility 1 dehiscence requiring sternal exploration and debridement and wound closure with bilateral pectoralis muscle flaps. During that admission , patient also required left sided chest tube placement, right sided thoracentesis, patient was eventually extubated, and transferred to rehab at [facility] under the care of Dr. Reyes. However after few days, patient developed congestive heart failure, worsening pleural effusion requiring thoracentesis again, loculated pleural effusion on the right side was noted based on ultrasound and CT of the chest, there was some purulence noted in his MEGHAN drains which are mediastinal drains, hence arrangements were made to transfer the patient back to [facility]. Patient was initially admitted to the intensive care unit, placed on broad-spectrum antibiotics, he is on heparin drip, and his last hospitalization while at [facility], his sputum was positive for Haemophilus influenza and Serratia marcescens. At any rate patient is to be seen by many consultants during this transfer, and I was asked to see him on consultation today. Patient was placed back on his usual medications, diuretics, I reviewed her chest x-ray, and I felt that the patient has bilateral pleural effusions, small at this point, will not require thoracentesis at least not for now. Patient was reevaluated today on 11/16/2016, breathing a bit easier, however the patient is requiring levo fed for low blood pressure. Remains in atrial fibrillation, but rate seems to be better controlled today. Remains on antibiotics for presumptive infectious process, however cultures have been negative so far. Chest x-ray continues to show bilateral pleural effusions and congestive heart failure changes. Lasix is presently on hold. Since the blood pressure was marginal earlier today requiring transferring back to the ICU. Patient was reevaluated today on 11/17/2016, clinically the patient seems to be doing much better, breathing a lot easier. Blood pressure remains marginal. Chest x-ray is showing some congestive heart failure changes, bilateral pleural effusions, ultrasound on the chest showed loculated pleural effusion, the amount of the fluid on both lungs are small, and not much to consider safe thoracentesis. Hence no plans to do thoracentesis at this point mostly because of the fluid is loculated and because the size of the fluid is rather small smaller on the right than on the left. Patient was placed back on Coumadin, hence we will continue with the Coumadin for anticoagulation. Given a dose of Lasix this morning, 40 mg IV push, and we'll likely continue on a daily basis depending and is on his overall clinical condition. Patient is feeling again much better today, less short of breath. And he seems to be quite appropriate. Labs showed WBC count of 15 hemoglobin of 7.1. INR is 1.4. Electrolytes showed low potassium of 3.1 BUN is 53 creatinine is 1.17. Hence will be cautious with diuretics. On 11/18/2016, patient seems to be doing a bit better, less shortness of breath, chest x-ray is showing less congestive heart failure, his atrial fibrillation seems to be better controlled, however his blood pressure is marginal, mean is in the low 60s. Urine output is excellent. All his labs were reviewed. Hemoglobin is 7.4 unchanged. WBC count is 15.5. PTT is 59. Electrolytes are normal except for low potassium of 3.3 BUN is 47 creatinine is 1.06. Patient remains on 1 Lasix dose daily. And that seems to be working well for him. It is 40 mg IV push every morning. Chest x-ray from today was reviewed showing improvement. Ultrasound which was done yesterday was also reviewed, and the patient clearly does not need thoracentesis at this point. On 11/19/2016, patient continues to gradually improve, he seems to be a bit more awake, more appropriate, and bit stronger, and he denies any shortness of breath. Continues to have issues with his atrial fibrillation, blood pressure remains marginal, but urine output is excellent. Patient is hemodynamically stable at this point. And not requiring any pressors. Microbiology from the fluid was reviewed, and Dr. Ramos is aware of the Sravani from the MEGHAN drain. Please refer to his note. WBC count is 14.8 hemoglobin is 7.5 INR is therapeutic hence I will discontinue heparin. Electrolytes are normal. BUN is 44 creatinine is 1.08. On 11/20/2016, patient is about the same, sitting in chair, in no distress, seems to be quite appropriate. Remains on the same medications for his multiple medical problems. Denies shortness of breath, no cough, no wheezing, no chest pain. Labs showed relatively normal CBC, hemoglobin remains low at 7.6. INR is 2.4 electrolytes and renal profile are about the same. On 11/21/2016, patient is postoperative day #56, uric valve replacement, mitral valve repair, mediastinal lymph node biopsy, and his postoperative day #36 muscle flap closure after sternal wound dehiscence. Patient remains on the cardiac floor, his issues were mostly related to paroxysmal atrial fibrillation , congestive heart failure, and bilateral pleural effusions, right side was drained twice by thoracentesis. Patient is gradually improving, his last chest x-ray showed some improvement in his overall fluid status. Labs today showed a hemoglobin of 8 WBC count of 13.6 electrolytes are normal BUN is 38 creatinine is 1.11. Patient will likely need to be referred to rehab again hopefully early next week. Objective - Vital Signs Vital signs: Vital Signs Temp 96.7 F L 11/21/16 11:59 Pulse 106 H 11/21/16 12:00 Resp 18 11/21/16 12:00 BP 93/60 11/21/16 11:59 Pulse Ox 100 11/21/16 11:59 Intake & Output 11/20/16 11/21/16 11/21/16 18:59 06:59 18:59 Intake Total 250 210 236 Output Total 600 965 Balance -350 -755 236 Weight 109.7 kg 108.5 kg 108.5 kg Intake: IV 210 0.9 NS 160 Piperacillin-Tazobactam 3 50 .375 gm In Dextrose/Water 1 50ml.bag @ 12.5 mls/hr IVPB Q8HR [facility] Rx#: [id number] Oral 250 236 Output: Drainage 115 Medial MEGHAN Drain 100 Right Lateral MEGHAN Drain 15 Urine 600 850 Other: Voiding Method Urinal Urinal Urinal # Voids 1 1 1 - Exam Physical Exam: Revealed a 71-year-old white male, cachectic, pale looking, not in respiratory distress HEENT:[Neck ithroughout, nos supple.] [No neck masses.] [No thyromegaly.] [No JVD.] Chest: [Diminished breath sounds and crackles at the bases were noted. No rhonchi no wheezes.] Cardiac Exam: [Irregular irregular rhythm, dressing on sternal wound is noted, MEGHAN drains 2 were noted. Abdomen: [Soft, nontender, no megaly, no rebound, no guarding, normal bowel sounds.] Extremities: [No clubbing, 2+ bipedal edema, no cyanosis.] Neurological Exam: [No focal neurologic deficit.] - Labs CBC & Chem 7: 11/21/16 08:33 11/21/16 08:33 Labs: Abnormal Lab Results - Last 24 Hours (Table) 11/20/16 11/20/16 11/21/16 Range/Units 16:58 21:04 01:43 WBC (3.8-10.6) k/uL RBC (4.30-5.90) m/uL Hgb (13.0-17.5) gm/dL Hct (39.0-53.0) % MCH (25.0-35.0) pg MCHC (31.0-37.0) g/dL RDW (11.5-15.5) % Plt Count (150-450) k/uL PT (9.0-12.0) sec Sodium (137-145) mmol/L Chloride (98-107) mmol/L Carbon Dioxide (22-30) mmol/L BUN (9-20) mg/dL Glucose (74-99) mg/dL POC Glucose (mg/dL) 170 H 118 H 133 H (75-99) mg/dL Calcium (8.4-10.2) mg/dL Albumin (3.5-5.0) g/dL 11/21/16 11/21/16 11/21/16 Range/Units 06:07 08:33 08:33 WBC 13.6 H (3.8-10.6) k/uL RBC 3.29 L (4.30-5.90) m/uL Hgb 8.0 L (13.0-17.5) gm/dL Hct 27.3 L (39.0-53.0) % MCH 24.3 L (25.0-35.0) pg MCHC 29.2 L (31.0-37.0) g/dL RDW 18.0 H (11.5-15.5) % Plt Count 568 H (150-450) k/uL PT 33.4 H (9.0-12.0) sec Sodium (137-145) mmol/L Chloride (98-107) mmol/L Carbon Dioxide (22-30) mmol/L BUN (9-20) mg/dL Glucose (74-99) mg/dL POC Glucose (mg/dL) 101 H (75-99) mg/dL Calcium (8.4-10.2) mg/dL Albumin (3.5-5.0) g/dL 11/21/16 11/21/16 Range/Units 08:33 12:11 WBC (3.8-10.6) k/uL RBC (4.30-5.90) m/uL Hgb (13.0-17.5) gm/dL Hct (39.0-53.0) % MCH (25.0-35.0) pg MCHC (31.0-37.0) g/dL RDW (11.5-15.5) % Plt Count (150-450) k/uL PT (9.0-12.0) sec Sodium 133 L (137-145) mmol/L Chloride 90 L (98-107) mmol/L Carbon Dioxide 35 H (22-30) mmol/L BUN 38 H (9-20) mg/dL Glucose 139 H (74-99) mg/dL POC Glucose (mg/dL) 131 H (75-99) mg/dL Calcium 7.1 L (8.4-10.2) mg/dL Albumin 2.6 L (3.5-5.0) g/dL Assessment and Plan Plan: Impression: 1 acute on chronic congestive heart failure secondary to diastolic dysfunction and possibly some component of LV dysfunction based on the echocardiogram. 2 recent aortic valve replacement and mitral valve repair. Postoperative day # 56 3 recent sternal wound dehiscence requiring pectoralis muscle flap. Postoperative day #36. 4 history of coronary artery disease and previous CABG. 5 acute hypoxic respiratory failure secondary to congestive heart failure, and bilateral pleural effusions. 6 persistent atrial fibrillation with variable rate, patient remains on IV heparin. 7 history of pleural effusions requiring thoracentesis 2 on the right side. Follow-up ultrasound of the chest today showed small amount of fluid on both sides, the fluid is loculated, and safety thoracentesis cannot be done. Hence no plans to tap the patient today mostly because of the size is small, not to mention the fluid is loculated in both sides. 8 moderate severe pulmonary hypertension. 9 history of chronic histoplasmosis. 10 history of degenerative joint disease. 11 history of GERD without esophagitis. 12 history of hypothyroidism. 13 history of coronary artery disease and previous CABG. Recommendation: Continue present treatment plan including diuretics, antibiotics , antimicrobial therapy as advised by infectious disease. Consider discharge planning to rehab in the next 2 days. Time with Patient: Less than 30
[2016-11-21 17:05] LABS: Glucose,Whole Blood 136 mg/dL (75-99)
[2016-11-21] MEDS: ATORVASTATIN 10 MG TAB PO SCH (21:12)
[2016-11-21 21:43] LABS: Glucose,Whole Blood 159 mg/dL (75-99)
[2016-11-22 02:16] LABS: Glucose,Whole Blood 131 mg/dL (75-99)
[2016-11-22 06:03] LABS: INR 3.1 (<1.1); Prothrombin Time 30.1 sec (9.0-12.0)
[2016-11-22] MEDS: INSULIN LISPRO (humaLOG) 300 UNIT/3 ML VIAL SQ SCH ×4 (06:35→21:01)
[2016-11-22] MEDS: PANTOPRAZOLE 40 MG TABLET PO SCH (06:36)
[2016-11-22] MEDS: LEVOTHYROXINE 75 MCG TAB PO SCH (06:36)
[2016-11-22 06:46] LABS: Glucose,Whole Blood 114 mg/dL (75-99)
[2016-11-22] MEDS: IPRATROPIUM-ALBUTEROL 3 ML NEB INHALATION SCH ×4 (08:42→19:57)
[2016-11-22] MEDS: AMIODARONE 200 MG TAB PO SCH (08:47)
[2016-11-22] MEDS: METOPROLOL TARTRATE 25 MG TAB PO SCH ×3 (08:47→21:37)
[2016-11-22] MEDS: PIPERACILLIN-TAZOBACTAM 3.375 GM in DEXTROSE/WATER 1 50ML.BAG IVPB SCH ×2 (08:47→15:28)
[2016-11-22] MEDS: FUROSEMIDE 40 MG TAB PO SCH ×2 (08:48→15:28)
[2016-11-22] MEDS: ASPIRIN 81 MG CHEW PO SCH (08:48)
[2016-11-22] MEDS: METOLAZONE 2.5 MG TAB PO SCH (10:11)
--- NOTE | 2016-11-22 10:16 | PN ---
Mr. Stevenson is sitting up comfortably in bed. He looks better than before his breath sounds have improved bilaterally. Heart sounds are tachycardic. He remains in atrial tachycardia/atrial fibrillation despite medical treatment. He is status post coronary artery bypass grafting. He has an infection in the pectoral flap. SUGGEST: From a cardiac standpoint, only issue is really his arrhythmia, which is drug refractory. Once his overall condition improves and he has been on anticoagulation for at least 4 weeks, then electrical cardioversion should be considered following which the dose of Amidarone should be induced to at least 200 mg p.o. daily.
--- NOTE | 2016-11-22 10:58 | PN ---
DATE OF SERVICE: 11/21/2016 This 71-year-old gentleman who was admitted with congestive heart failure acute exacerbation is being closely monitored. The patient also had aortic valve replacement as well as mitral valve repair. Most recent chest x-ray done on 11/19 showed improvement in volume status. The patient was seen by Dr. Gaffney and cardiology as well. The patient is being closely monitored at this time. is also being continued. Rehab evaluation is also being planned. PAST MEDICAL HISTORY: Reviewed. REVIEW OF SYSTEMS: CARDIOVASCULAR: As mentioned. GI: As mentioned. : No dysuria or hematuria. NERVOUS SYSTEM: No numbness or weakness. Current medications are reviewed and include: 1. Tylenol 650 every 4 hours p.r.n. 2. [place] 10 mg every 4 p.r.n. 3. [place] 5 mg q. 4 p.r.n. 4. DuoNeb q.i.d. and p.r.n. 5. Cordarone 400 mg daily. 6. Aspirin 81 mg. 7. Lipitor 10 mg. 8. Lasix 40 mg p.o. b.i.d. 9. Humalog. 10. Zaroxolyn. 11. Lopressor. 12. Multivitamins. 13. Protonix. 14. Zosyn. 15. IV Senokot. PHYSICAL EXAMINATION: Patient is alert, oriented x3. Pulse 123 and regular. The patient has atrial fibrillation with fast ventricular rate. Blood pressure 104/60, respirations 16, temperature normal, pulse ox 94% on 2 L. HEENT: Conjunctivae normal. NECK: No JVD. CARDIOVASCULAR: S1 and S2. LUNGS: Breath sounds diminished at the bases. Bilateral scattered rhonchi and crackles. ABDOMEN: Soft, nontender. EXTREMITIES: Legs No edema. CENTRAL NERVOUS SYSTEM: No focal deficits. LABS: Hemoglobin is 8, sodium 133. ASSESSMENT: 1. Congestive heart failure acute exacerbation, with acute on chronic diastolic dysfunction, ejection 50% to 60%. 2. History of recent aortic valve replacement as well as mitral valve repair. 3. History of sternal wound dehiscence with a pectoral flap placement. 4. History of coronary artery disease, coronary artery bypass grafting. 5. History of acute hypoxic respiratory failure, on high volume nasal cannula. 6. Paroxysmal atrial fibrillation with fast ventricular rate. 7. Chronic histoplasmosis status post biopsy. 8. History of pleural effusions, which are tapped. 9. Hypercholesterolemia. 10. Hypertension, essential. 11. Hypothyroidism. 12. Obesity with body mass index of 54.6. 13. History of degenerative joint disease. 14. Moderate secondary pulmonary hypertension. 15. History of gastroesophageal reflux disease. 16. FULL CODE. RECOMMENDATIONS: Recommend to continue with diuretics. Monitor closely. Incentive spirometry. Continue antibiotics. Repeat labs. Guarded prognosis because of multiple complex medical issues. Further recommendations to follow. MTDD
--- NOTE | 2016-11-22 11:50 | P.PN ---
<Charisse Croft - Last Filed: 11/22/16 11:50> Subjective Principal diagnosis: POD #57 aortic valve replacement, mitral valve repair, mediastinal lymph node biopsy. POD #37 muscle flap closure after sternal wound dehiscence. Paroxysmal atrial fibrillation currently treated with amiodarone and Coumadin Currently sitting up in bed in no apparent distress. Remains in A. fib with RVR. Final results for fluid culture sent from MEGHAN drainage is positive for mine albicans, treatment per Dr. Ramos. Awaiting repeat rehab evaluation by Dr. Christina. Objective - Vital Signs Vital signs: Vital Signs Temp 98.1 F 11/21/16 20:00 Pulse 108 H 11/22/16 04:00 Resp 18 11/22/16 04:00 BP 94/63 11/22/16 04:00 Pulse Ox 92 L 11/22/16 04:00 Intake & Output 11/21/16 11/22/16 11/22/16 18:59 06:59 18:59 Intake Total 716 110 Output Total 600 55 Balance 116 55 Weight 108.5 kg 108.8 kg Intake: IV 110 0.9 NS 60 Piperacillin-Tazobactam 3 50 .375 gm In Dextrose/Water 1 50ml.bag @ 12.5 mls/hr IVPB Q8HR [facility] Rx#: [id number] Oral 716 Output: Drainage 55 Medial MEGHAN Drain 55 Urine 600 Other: Voiding Method Urinal # Voids 0 - Constitutional General appearance: Present: cooperative, no acute distress, obese - Respiratory Details: Lungs sounds diminished bilaterally. Respirations even, nonlabored. Currently on 3 L nasal cannula with oxygen saturation 92%. Only able to achieve 500 mL on his incentive spirometry. Effective cough. - Cardiovascular Details: S1, S2 present. Irregular, tachycardia rate and rhythm, A. fib with RVR on telemetry. Left and right JPs without any documented drainage, middle MEGHAN with 55 mL drainage overnight. Teds/SCDs present. - Gastrointestinal Gastrointestinal Comment(s): Abdomen soft, nontender, nondistended, obese. Active bowel sounds 4 quadrants. Tolerating diet. - Genitourinary Genitourinary Comment(s): Continues to void clear, yellow urine. - Integumentary Integumentary Comment(s): Anterior chest incision well approximated. - Musculoskeletal Musculoskeletal: Present: generalized weakness - Psychiatric Psychiatric: Present: A&O x's 3, appropriate affect, intact judgment & insight - Allied health notes Allied health notes reviewed: nursing - Labs CBC & Chem 7: 11/21/16 08:33 11/21/16 08:33 Labs: Abnormal Lab Results - Last 24 Hours (Table) 11/21/16 11/21/16 11/21/16 Range/Units 08:33 08:33 08:33 WBC 13.6 H (3.8-10.6) k/uL RBC 3.29 L (4.30-5.90) m/uL Hgb 8.0 L (13.0-17.5) gm/dL Hct 27.3 L (39.0-53.0) % MCH 24.3 L (25.0-35.0) pg MCHC 29.2 L (31.0-37.0) g/dL RDW 18.0 H (11.5-15.5) % Plt Count 568 H (150-450) k/uL PT 33.4 H (9.0-12.0) sec Sodium 133 L (137-145) mmol/L Chloride 90 L (98-107) mmol/L Carbon Dioxide 35 H (22-30) mmol/L BUN 38 H (9-20) mg/dL Glucose 139 H (74-99) mg/dL POC Glucose (mg/dL) (75-99) mg/dL Calcium 7.1 L (8.4-10.2) mg/dL Albumin 2.6 L (3.5-5.0) g/dL 11/21/16 11/21/16 11/21/16 Range/Units 12:11 16:53 20:39 WBC (3.8-10.6) k/uL RBC (4.30-5.90) m/uL Hgb (13.0-17.5) gm/dL Hct (39.0-53.0) % MCH (25.0-35.0) pg MCHC (31.0-37.0) g/dL RDW (11.5-15.5) % Plt Count (150-450) k/uL PT (9.0-12.0) sec Sodium (137-145) mmol/L Chloride (98-107) mmol/L Carbon Dioxide (22-30) mmol/L BUN (9-20) mg/dL Glucose (74-99) mg/dL POC Glucose (mg/dL) 131 H 136 H 159 H (75-99) mg/dL Calcium (8.4-10.2) mg/dL Albumin (3.5-5.0) g/dL 11/22/16 11/22/16 11/22/16 Range/Units 01:59 05:22 05:55 WBC (3.8-10.6) k/uL RBC (4.30-5.90) m/uL Hgb (13.0-17.5) gm/dL Hct (39.0-53.0) % MCH (25.0-35.0) pg MCHC (31.0-37.0) g/dL RDW (11.5-15.5) % Plt Count (150-450) k/uL PT 30.1 H (9.0-12.0) sec Sodium (137-145) mmol/L Chloride (98-107) mmol/L Carbon Dioxide (22-30) mmol/L BUN (9-20) mg/dL Glucose (74-99) mg/dL POC Glucose (mg/dL) 131 H 114 H (75-99) mg/dL Calcium (8.4-10.2) mg/dL Albumin (3.5-5.0) g/dL Assessment and Plan (1) Congestive heart failure Status: Acute (2) Hypercholesterolemia Status: Acute (3) Hypertension Status: Acute (4) Hypothyroidism (acquired) Status: Acute (5) Obesity Status: Acute (6) Paroxysmal a-fib Status: Acute (7) Status post aortic valve replacement Status: Acute (8) Status post mitral valve repair Status: Acute Plan: 1. Continue aspirin, amiodarone, Lopressor, Lasix, Zaroxolyn. 2. Body fluid culture from MEGHAN drains sent, final cultures demonstrating Mine albicans. Infectious disease following. 3. Wean O2 as tolerated. Encourage incentive spirometry use. 4. Medical comorbidities to be managed by internal medicine. 5. Encourage increased activity. Physical therapy to follow 6. INR 3.1. Will hold Coumadin today. 7. No indication for cardiothoracic surgical intervention at this time. 8. Discharge planning in process. IPR versus YODIT. Time with Patient: Greater than 30 <Brant Crawford - Last Filed: 11/22/16 12:18> Objective - Vital Signs Vital signs: Vital Signs Temp 98.4 F 11/22/16 08:00 Pulse 110 H 11/22/16 12:09 Resp 20 11/22/16 08:00 BP 109/68 11/22/16 08:00 Pulse Ox 91 L 11/22/16 08:46 Intake & Output 11/21/16 11/22/16 11/22/16 18:59 06:59 18:59 Intake Total 716 110 300 Output Total 600 55 200 Balance 116 55 100 Weight 108.5 kg 108.8 kg Intake: IV 110 100 0.9 NS 60 50 Piperacillin-Tazobactam 3 50 50 .375 gm In Dextrose/Water 1 50ml.bag @ 12.5 mls/hr IVPB Q8HR [facility] Rx#: [id number] Oral 716 200 Output: Drainage 55 Medial MEGHAN Drain 55 Urine 600 200 Other: Voiding Method Urinal Urinal # Voids 0 - Labs CBC & Chem 7: 11/21/16 08:33 11/21/16 08:33 Labs: Abnormal Lab Results - Last 24 Hours (Table) 11/21/16 11/21/16 11/21/16 Range/Units 12:11 16:53 20:39 PT (9.0-12.0) sec POC Glucose (mg/dL) 131 H 136 H 159 H (75-99) mg/dL 11/22/16 11/22/16 11/22/16 Range/Units 01:59 05:22 05:55 PT 30.1 H (9.0-12.0) sec POC Glucose (mg/dL) 131 H 114 H (75-99) mg/dL 11/22/16 Range/Units 11:51 PT (9.0-12.0) sec POC Glucose (mg/dL) 121 H (75-99) mg/dL Assessment and Plan Plan: The patient was seen and examined. I agree with the above assessment and plan. His MEGHAN drains are intact and I would continue them to bulb suction for now. Discharge back to subacute rehab when determined by the primary service.
[2016-11-22 12:09] LABS: Glucose,Whole Blood 121 mg/dL (75-99)
[2016-11-22] MEDS: MULTIVITAMINS, THERA 1 EACH TAB PO SCH (12:22)
--- NOTE | 2016-11-22 12:25 | P.PN ---
Subjective Principal diagnosis: Pulmonary edema and bilateral pleural effusions, atrial fibrillation with RVR. 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 Patient was eventually discharged home after a relatively prolonged hospital course, patient was readmitted on October 06 through October 30 with increased shortness of breath, and he was found to have congestive heart failure, sterility 1 dehiscence requiring sternal exploration and debridement and wound closure with bilateral pectoralis muscle flaps. During that admission , patient also required left sided chest tube placement, right sided thoracentesis, patient was eventually extubated, and transferred to rehab at [facility] under the care of Dr. Reyes. However after few days, patient developed congestive heart failure, worsening pleural effusion requiring thoracentesis again, loculated pleural effusion on the right side was noted based on ultrasound and CT of the chest, there was some purulence noted in his MEGHAN drains which are mediastinal drains, hence arrangements were made to transfer the patient back to [facility]. Patient was initially admitted to the intensive care unit, placed on broad-spectrum antibiotics, he is on heparin drip, and his last hospitalization while at [facility], his sputum was positive for Haemophilus influenza and Serratia marcescens. At any rate patient is to be seen by many consultants during this transfer, and I was asked to see him on consultation today. Patient was placed back on his usual medications, diuretics, I reviewed her chest x-ray, and I felt that the patient has bilateral pleural effusions, small at this point, will not require thoracentesis at least not for now. Patient was reevaluated today on 11/16/2016, breathing a bit easier, however the patient is requiring levo fed for low blood pressure. Remains in atrial fibrillation, but rate seems to be better controlled today. Remains on antibiotics for presumptive infectious process, however cultures have been negative so far. Chest x-ray continues to show bilateral pleural effusions and congestive heart failure changes. Lasix is presently on hold. Since the blood pressure was marginal earlier today requiring transferring back to the ICU. Patient was reevaluated today on 11/17/2016, clinically the patient seems to be doing much better, breathing a lot easier. Blood pressure remains marginal. Chest x-ray is showing some congestive heart failure changes, bilateral pleural effusions, ultrasound on the chest showed loculated pleural effusion, the amount of the fluid on both lungs are small, and not much to consider safe thoracentesis. Hence no plans to do thoracentesis at this point mostly because of the fluid is loculated and because the size of the fluid is rather small smaller on the right than on the left. Patient was placed back on Coumadin, hence we will continue with the Coumadin for anticoagulation. Given a dose of Lasix this morning, 40 mg IV push, and we'll likely continue on a daily basis depending and is on his overall clinical condition. Patient is feeling again much better today, less short of breath. And he seems to be quite appropriate. Labs showed WBC count of 15 hemoglobin of 7.1. INR is 1.4. Electrolytes showed low potassium of 3.1 BUN is 53 creatinine is 1.17. Hence will be cautious with diuretics. On 11/18/2016, patient seems to be doing a bit better, less shortness of breath, chest x-ray is showing less congestive heart failure, his atrial fibrillation seems to be better controlled, however his blood pressure is marginal, mean is in the low 60s. Urine output is excellent. All his labs were reviewed. Hemoglobin is 7.4 unchanged. WBC count is 15.5. PTT is 59. Electrolytes are normal except for low potassium of 3.3 BUN is 47 creatinine is 1.06. Patient remains on 1 Lasix dose daily. And that seems to be working well for him. It is 40 mg IV push every morning. Chest x-ray from today was reviewed showing improvement. Ultrasound which was done yesterday was also reviewed, and the patient clearly does not need thoracentesis at this point. On 11/19/2016, patient continues to gradually improve, he seems to be a bit more awake, more appropriate, and bit stronger, and he denies any shortness of breath. Continues to have issues with his atrial fibrillation, blood pressure remains marginal, but urine output is excellent. Patient is hemodynamically stable at this point. And not requiring any pressors. Microbiology from the fluid was reviewed, and Dr. Rmaos is aware of the Sravani from the MEGHAN drain. Please refer to his note. WBC count is 14.8 hemoglobin is 7.5 INR is therapeutic hence I will discontinue heparin. Electrolytes are normal. BUN is 44 creatinine is 1.08. On 11/20/2016, patient is about the same, sitting in chair, in no distress, seems to be quite appropriate. Remains on the same medications for his multiple medical problems. Denies shortness of breath, no cough, no wheezing, no chest pain. Labs showed relatively normal CBC, hemoglobin remains low at 7.6. INR is 2.4 electrolytes and renal profile are about the same. On 11/21/2016, patient is postoperative day #56, aortic valve replacement, mitral valve repair, mediastinal lymph node biopsy, and his postoperative day # 36 muscle flap closure after sternal wound dehiscence. Patient remains on the cardiac floor, his issues were mostly related to paroxysmal atrial fibrillation , congestive heart failure, and bilateral pleural effusions, right side was drained twice by thoracentesis. Patient is gradually improving, his last chest x-ray showed some improvement in his overall fluid status. Labs today showed a hemoglobin of 8 WBC count of 13.6 electrolytes are normal BUN is 38 creatinine is 1.11. Patient will likely need to be referred to rehab again hopefully early next week. On 11/22/2016, patient is postoperative day #57, aortic valve replacement, mitral valve repair, mediastinal lymph node biopsy, and he is postoperative day #37 muscle flap closure after sternal wound dehiscence. Overall the patient continues to do well, he seems to be in no form of respiratory distress. Continues to have loculated bilateral pleural effusions, and I plan to have repeat chest x-ray on this patient tomorrow. Previous thoracentesis 2 were done. However follow-up ultrasound recently showed the fluid was loculated, and not much could be done beyond that. Patient is being considered for possible rehab referral hopefully in the next couple of days. Objective - Vital Signs Vital signs: Vital Signs Temp 98.4 F 11/22/16 08:00 Pulse 110 H 11/22/16 12:09 Resp 20 11/22/16 08:00 BP 109/68 11/22/16 08:00 Pulse Ox 91 L 11/22/16 08:46 Intake & Output 11/21/16 11/22/16 11/22/16 18:59 06:59 18:59 Intake Total 716 110 300 Output Total 600 55 200 Balance 116 55 100 Weight 108.5 kg 108.8 kg Intake: IV 110 100 0.9 NS 60 50 Piperacillin-Tazobactam 3 50 50 .375 gm In Dextrose/Water 1 50ml.bag @ 12.5 mls/hr IVPB Q8HR [facility] Rx#: [id number] Oral 716 200 Output: Drainage 55 Medial MEGHAN Drain 55 Urine 600 200 Other: Voiding Method Urinal Urinal # Voids 0 - Exam Physical Exam: Revealed a 71-year-old white male, cachectic, pale looking, not in respiratory distress HEENT:[Neck ithroughout, nos supple.] [No neck masses.] [No thyromegaly.] [No JVD.] Chest: [Diminished breath sounds and crackles at the bases were noted. No rhonchi no wheezes.] Cardiac Exam: [Irregular irregular rhythm, dressing on sternal wound is noted, MEGHAN drains 2 were noted. Abdomen: [Soft, nontender, no megaly, no rebound, no guarding, normal bowel sounds.] Extremities: [No clubbing, 2+ bipedal edema, no cyanosis.] Neurological Exam: [No focal neurologic deficit.] - Labs CBC & Chem 7: 11/21/16 08:33 11/21/16 08:33 Labs: Abnormal Lab Results - Last 24 Hours (Table) 11/21/16 11/21/16 11/21/16 Range/Units 12:11 16:53 20:39 PT (9.0-12.0) sec POC Glucose (mg/dL) 131 H 136 H 159 H (75-99) mg/dL 11/22/16 11/22/16 11/22/16 Range/Units 01:59 05:22 05:55 PT 30.1 H (9.0-12.0) sec POC Glucose (mg/dL) 131 H 114 H (75-99) mg/dL 11/22/16 Range/Units 11:51 PT (9.0-12.0) sec POC Glucose (mg/dL) 121 H (75-99) mg/dL Assessment and Plan Plan: Impression: 1 acute on chronic congestive heart failure secondary to diastolic dysfunction and possibly some component of LV dysfunction based on the echocardiogram. 2 recent aortic valve replacement and mitral valve repair. Postoperative day # 57 3 recent sternal wound dehiscence requiring pectoralis muscle flap. Postoperative day #37 4 history of coronary artery disease and previous CABG. 5 acute hypoxic respiratory failure secondary to congestive heart failure, and bilateral pleural effusions. 6 persistent atrial fibrillation with variable rate, patient remains on IV heparin. 7 history of pleural effusions requiring thoracentesis 2 on the right side. Follow-up ultrasound of the chest today showed small amount of fluid on both sides, the fluid is loculated, and safety thoracentesis cannot be done. Hence no plans to tap the patient today mostly because of the size is small, not to mention the fluid is loculated in both sides. 8 moderate severe pulmonary hypertension. 9 history of chronic histoplasmosis. 10 history of degenerative joint disease. 11 history of GERD without esophagitis. 12 history of hypothyroidism. 13 history of coronary artery disease and previous CABG. Recommendation: Continue present treatment plan including diuretics, antibiotics , antimicrobial therapy as advised by infectious disease. Consider discharge planning to rehab in the next 2 days. Time with Patient: Less than 30
[2016-11-22 17:29] LABS: Glucose,Whole Blood 148 mg/dL (75-99)
[2016-11-22 20:48] LABS: Glucose,Whole Blood 107 mg/dL (75-99)
[2016-11-22] MEDS: ATORVASTATIN 10 MG TAB PO SCH (21:37)
[2016-11-23] MEDS: PIPERACILLIN-TAZOBACTAM 3.375 GM in DEXTROSE/WATER 1 50ML.BAG IVPB SCH ×4 (00:01→23:22)
[2016-11-23] MEDS: INSULIN LISPRO (humaLOG) 300 UNIT/3 ML VIAL SQ SCH ×4 (06:08→22:05)
[2016-11-23 06:12] LABS: Glucose,Whole Blood 97 mg/dL (75-99)
[2016-11-23 06:27] LABS: INR 2.4 (<1.1); Prothrombin Time 23.3 sec (9.0-12.0)
[2016-11-23] MEDS: PANTOPRAZOLE 40 MG TABLET PO SCH (06:30)
[2016-11-23] MEDS: LEVOTHYROXINE 75 MCG TAB PO SCH (06:30)
[2016-11-23] MEDS: AMIODARONE 200 MG TAB PO SCH (07:51)
[2016-11-23] MEDS: METOLAZONE 2.5 MG TAB PO SCH (07:51)
[2016-11-23] MEDS: ASPIRIN 81 MG CHEW PO SCH (07:51)
[2016-11-23] MEDS: METOPROLOL TARTRATE 25 MG TAB PO SCH ×3 (07:51→22:06)
[2016-11-23] MEDS: FUROSEMIDE 40 MG TAB PO SCH ×2 (07:52→15:01)
--- NOTE | 2016-11-23 08:04 | P.PN ---
<Charisse Croft - Last Filed: 11/23/16 08:04> Subjective Principal diagnosis: POD #58 aortic valve replacement, mitral valve repair, mediastinal lymph node biopsy. POD #38 muscle flap closure after sternal wound dehiscence. Paroxysmal atrial fibrillation currently treated with amiodarone and Coumadin Currently sitting up in bed in no apparent distress, eating breakfast. Remains in A. fib with RVR. Final results for fluid culture sent from MEGHAN drainage is positive for mine albicans, treatment per Dr. Ramos. Awaiting repeat rehab recommendations by PT/OT/Dr. Christina. Objective - Vital Signs Vital signs: Vital Signs Temp 97.5 F L 11/22/16 20:00 Pulse 115 H 11/23/16 04:00 Resp 18 11/23/16 04:00 BP 112/71 11/23/16 04:00 Pulse Ox 91 L 11/23/16 04:00 Intake & Output 11/22/16 11/23/16 11/23/16 18:59 06:59 18:59 Intake Total 850 Output Total 2035 715 Balance -1185 -715 Weight 107 kg Intake: IV 200 0.9 NS 100 Piperacillin-Tazobactam 3 100 .375 gm In Dextrose/Water 1 50ml.bag @ 12.5 mls/hr IVPB Q8HR [facility] Rx#: [id number] Oral 650 Output: Drainage 85 65 Medial MEGHAN Drain 85 65 Urine 1950 650 Other: Voiding Method Urinal # Voids 3 0 - Constitutional General appearance: Present: cooperative, no acute distress, obese - Respiratory Details: Lungs sounds diminished bilaterally. Respirations even, nonlabored. Currently on 3 L nasal cannula with oxygen saturation 91%. Effective cough. Only able to achieve 500 mL on his incentive spirometry. Right left JPs without any documented drainage in 24 hours, minimal MEGHAN with 65 mL drainage overnight. - Cardiovascular Details: S1, S2 present. Irregular, tachycardia rate and rhythm, A. fib with RVR telemetry. Bilateral lower extremity edema present. - Gastrointestinal Gastrointestinal Comment(s): Abdomen soft, nontender, nondistended. Active bowel sounds 4 quadrants. Tolerating diet. - Genitourinary Genitourinary Comment(s): Continues to void clear, yellow urine per urinal. - Integumentary Integumentary Comment(s): Anterior chest incision well approximated and covered with dry intact dressing. - Musculoskeletal Musculoskeletal: Present: strength equal bilaterally - Psychiatric Psychiatric: Present: A&O x's 3, appropriate affect, intact judgment & insight - Allied health notes Allied health notes reviewed: nursing - Labs CBC & Chem 7: 11/21/16 08:33 11/21/16 08:33 Labs: Abnormal Lab Results - Last 24 Hours (Table) 11/22/16 11/22/16 11/22/16 Range/Units 11:51 17:15 20:33 PT (9.0-12.0) sec POC Glucose (mg/dL) 121 H 148 H 107 H (75-99) mg/dL 11/23/16 Range/Units 06:06 PT 23.3 H (9.0-12.0) sec POC Glucose (mg/dL) (75-99) mg/dL Assessment and Plan (1) Congestive heart failure Status: Acute (2) Hypercholesterolemia Status: Acute (3) Hypertension Status: Acute (4) Hypothyroidism (acquired) Status: Acute (5) Obesity Status: Acute (6) Paroxysmal a-fib Status: Acute (7) Status post aortic valve replacement Status: Acute (8) Status post mitral valve repair Status: Acute Plan: 1. Continue aspirin, amiodarone, Lopressor, Lasix, Zaroxolyn. 2. Body fluid culture from MEGHAN drains sent, final cultures demonstrating Mine albicans. Infectious disease following. 3. Wean O2 as tolerated. Encourage incentive spirometry use. 4. Medical comorbidities to be managed by internal medicine. 5. Encourage increased activity. Physical therapy to follow 6. INR 2.4 this morning. Coumadin dosing to be done per cardiology. Per Dr. Garcia's note, patient will need anticoagulation for 4 weeks and then may be a possible candidate for cardioversion. 7. No indication for cardiothoracic surgical intervention at this time. 8. Discharge planning in process. IPR versus YODIT based on PT/OT/Dr. Christina's recommendations. Time with Patient: Greater than 30 <Brant Crawford - Last Filed: 11/23/16 13:29> Objective - Vital Signs Vital signs: Vital Signs Temp 98.8 F 11/23/16 08:00 Pulse 108 H 11/23/16 11:58 Resp 20 11/23/16 08:00 BP 107/72 11/23/16 08:00 Pulse Ox 94 L 11/23/16 08:00 Intake & Output 11/22/16 11/23/16 11/23/16 18:59 06:59 18:59 Intake Total 850 240 Output Total 6485 715 50 Balance -1185 -715 190 Weight 107 kg Intake: IV 200 0.9 NS 100 Piperacillin-Tazobactam 3 100 .375 gm In Dextrose/Water 1 50ml.bag @ 12.5 mls/hr IVPB Q8HR [facility] Rx#: [id number] Oral 650 240 Output: Drainage 85 65 50 Left Lateral MEGHAN Drain 0 Medial MEGHAN Drain 85 65 50 Right Lateral MEGHAN Drain 0 Urine 1950 650 Other: Voiding Method Urinal Urinal # Voids 3 0 - Labs CBC & Chem 7: 11/21/16 08:33 11/21/16 08:33 Labs: Abnormal Lab Results - Last 24 Hours (Table) 11/22/16 11/22/16 11/23/16 Range/Units 17:15 20:33 06:06 PT 23.3 H (9.0-12.0) sec POC Glucose (mg/dL) 148 H 107 H (75-99) mg/dL 11/23/16 Range/Units 12:08 PT (9.0-12.0) sec POC Glucose (mg/dL) 110 H (75-99) mg/dL Assessment and Plan Plan: Continued MEGHAN drains to bulb drainage. Antibiotics per infectious disease. Discharge planning per the primary service.
--- NOTE | 2016-11-23 08:27 | PN ---
DATE OF SERVICE: 11/22/2016 This is a 71-year-old gentleman who was admitted with CHF acute exacerbation, is being closely monitored. The patient also had recent aortic valve replacement also. No chest pain. No palpitations. The patient has come from [facility]. On exam, alert and oriented times three. Pulse is 108, blood pressure 101/50. Respiratory rate 20. Temperature 98.1, pulse ox 98% on 3 L. HEENT: Conjunctivae normal. NECK: No jugular venous distention. CARDIOVASCULAR: S1, S2 muffled. RESPIRATORY: Breath sounds diminished at the bases. Bilateral scattered rhonchi and crackles. ABDOMEN: Soft, nontender, obese. LEGS: No edema. No swelling. CENTRAL NERVOUS SYSTEM: No focal deficits. LABS: WBC 13.1, Hemoglobin 8, INR 3.4, sodium 133. ASSESSMENT: 1. Congestive heart failure, acute exacerbation, with acute on chronic diastolic dysfunction, ejection fraction 55% to 60%. 2. History of recent aortic valve replacement as well as mitral valve repair. 3. History of sternal wound dehiscence with pectoral flap replacement. 4. History of coronary artery disease, coronary artery bypass grafting. 5. History of acute hypoxic respiratory failure on high volume nasal cannula. 6. Paroxysmal atrial fibrillation with fast ventricular rate. 7. History of chronic histoplasmosis status post biopsy. 8. History of pleural effusion, which are tapped. 9. Hypercholesterolemia. 10. Hypertension, essential. 11. Hypothyroidism. 12. Obesity, body mass index 54.6. 13. History of degenerative joint disease. 14. History of moderate secondary pulmonary hypertension. 15. History of gastroesophageal reflux disease. 16. FULL CODE. RECOMMENDATIONS AND DISCUSSION: Recommend to continue current medications, continue with monitoring, continue symptomatic treatment, continue with . Repeat labs. PT, OT evaluation. Increase ambulation. Guarded prognosis. Further recommendations to follow. MTDD
--- NOTE | 2016-11-23 08:41 | XR ---
EXAMINATION TYPE: XR chest 1V portable DATE OF EXAM: 11/23/2016 8:16 AM CLINICAL HISTORY: Difficulty breathing progress study. Heart valve replacement and CHF TECHNIQUE: Single AP portable upright view of the chest is obtained. COMPARISON: Chest x-ray from 4 days earlier FINDINGS: Interval removal of vertical skin yoli noted. There are bilateral chest tubes and media stinal drainage catheter. There is diminished inspiration on current study. There is persistent mild cardiomegaly with central vascular congestion and small to moderate-sized bilateral pleural effusions with associated bibasilar atelectasis and/or infiltrate. No sizable pneumothorax is seen bilaterally . Degenerative change both shoulders is redemonstrated. IMPRESSION: Diminished inspiration on current study, suspect CHF exacerbation as there is mild cardio megaly with central vascular congestion and small to moderate-sized bilateral pleural effusions all r edemonstrated, associated bibasilar atelectasis and/or infiltrate is noted.
[2016-11-23] MEDS: IPRATROPIUM-ALBUTEROL 3 ML NEB INHALATION SCH ×4 (08:51→20:03)
--- NOTE | 2016-11-23 11:42 | P.PN ---
Subjective Principal diagnosis: Pulmonary edema with bilateral pleural effusions, atrial fibrillation with RVR. 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 Patient was eventually discharged home after a relatively prolonged hospital course, patient was readmitted on October 06 through October 30 with increased shortness of breath, and he was found to have congestive heart failure, sterility 1 dehiscence requiring sternal exploration and debridement and wound closure with bilateral pectoralis muscle flaps. During that admission , patient also required left sided chest tube placement, right sided thoracentesis, patient was eventually extubated, and transferred to rehab at [facility] under the care of Dr. Reyes. However after few days, patient developed congestive heart failure, worsening pleural effusion requiring thoracentesis again, loculated pleural effusion on the right side was noted based on ultrasound and CT of the chest, there was some purulence noted in his MEGHAN drains which are mediastinal drains, hence arrangements were made to transfer the patient back to [facility]. Patient was initially admitted to the intensive care unit, placed on broad-spectrum antibiotics, he is on heparin drip, and his last hospitalization while at [facility], his sputum was positive for Haemophilus influenza and Serratia marcescens. At any rate patient is to be seen by many consultants during this transfer, and I was asked to see him on consultation today. Patient was placed back on his usual medications, diuretics, I reviewed her chest x-ray, and I felt that the patient has bilateral pleural effusions, small at this point, will not require thoracentesis at least not for now. Patient was reevaluated today on 11/16/2016, breathing a bit easier, however the patient is requiring levo fed for low blood pressure. Remains in atrial fibrillation, but rate seems to be better controlled today. Remains on antibiotics for presumptive infectious process, however cultures have been negative so far. Chest x-ray continues to show bilateral pleural effusions and congestive heart failure changes. Lasix is presently on hold. Since the blood pressure was marginal earlier today requiring transferring back to the ICU. Patient was reevaluated today on 11/17/2016, clinically the patient seems to be doing much better, breathing a lot easier. Blood pressure remains marginal. Chest x-ray is showing some congestive heart failure changes, bilateral pleural effusions, ultrasound on the chest showed loculated pleural effusion, the amount of the fluid on both lungs are small, and not much to consider safe thoracentesis. Hence no plans to do thoracentesis at this point mostly because of the fluid is loculated and because the size of the fluid is rather small smaller on the right than on the left. Patient was placed back on Coumadin, hence we will continue with the Coumadin for anticoagulation. Given a dose of Lasix this morning, 40 mg IV push, and we'll likely continue on a daily basis depending and is on his overall clinical condition. Patient is feeling again much better today, less short of breath. And he seems to be quite appropriate. Labs showed WBC count of 15 hemoglobin of 7.1. INR is 1.4. Electrolytes showed low potassium of 3.1 BUN is 53 creatinine is 1.17. Hence will be cautious with diuretics. On 11/18/2016, patient seems to be doing a bit better, less shortness of breath, chest x-ray is showing less congestive heart failure, his atrial fibrillation seems to be better controlled, however his blood pressure is marginal, mean is in the low 60s. Urine output is excellent. All his labs were reviewed. Hemoglobin is 7.4 unchanged. WBC count is 15.5. PTT is 59. Electrolytes are normal except for low potassium of 3.3 BUN is 47 creatinine is 1.06. Patient remains on 1 Lasix dose daily. And that seems to be working well for him. It is 40 mg IV push every morning. Chest x-ray from today was reviewed showing improvement. Ultrasound which was done yesterday was also reviewed, and the patient clearly does not need thoracentesis at this point. On 11/19/2016, patient continues to gradually improve, he seems to be a bit more awake, more appropriate, and bit stronger, and he denies any shortness of breath. Continues to have issues with his atrial fibrillation, blood pressure remains marginal, but urine output is excellent. Patient is hemodynamically stable at this point. And not requiring any pressors. Microbiology from the fluid was reviewed, and Dr. Ramos is aware of the Sravani from the MEGHAN drain. Please refer to his note. WBC count is 14.8 hemoglobin is 7.5 INR is therapeutic hence I will discontinue heparin. Electrolytes are normal. BUN is 44 creatinine is 1.08. On 11/20/2016, patient is about the same, sitting in chair, in no distress, seems to be quite appropriate. Remains on the same medications for his multiple medical problems. Denies shortness of breath, no cough, no wheezing, no chest pain. Labs showed relatively normal CBC, hemoglobin remains low at 7.6. INR is 2.4 electrolytes and renal profile are about the same. On 11/21/2016, patient is postoperative day #56, aortic valve replacement, mitral valve repair, mediastinal lymph node biopsy, and his postoperative day # 36 muscle flap closure after sternal wound dehiscence. Patient remains on the cardiac floor, his issues were mostly related to paroxysmal atrial fibrillation , congestive heart failure, and bilateral pleural effusions, right side was drained twice by thoracentesis. Patient is gradually improving, his last chest x-ray showed some improvement in his overall fluid status. Labs today showed a hemoglobin of 8 WBC count of 13.6 electrolytes are normal BUN is 38 creatinine is 1.11. Patient will likely need to be referred to rehab again hopefully early next week. On 11/22/2016, patient is postoperative day #57, aortic valve replacement, mitral valve repair, mediastinal lymph node biopsy, and he is postoperative day #37 muscle flap closure after sternal wound dehiscence. Overall the patient continues to do well, he seems to be in no form of respiratory distress. Continues to have loculated bilateral pleural effusions, and I plan to have repeat chest x-ray on this patient tomorrow. Previous thoracentesis 2 were done. However follow-up ultrasound recently showed the fluid was loculated, and not much could be done beyond that. Patient is being considered for possible rehab referral hopefully in the next couple of days. The patient is seen again today 11/23/2016 in follow-up on the selective care unit. He is awake and alert in no acute distress. He is up ambulating in the room with assistance 2 for physical therapy. This is the first time he has been up walking in quite some time. He denies any worsening shortness of breath , cough or congestion. He is maintaining good O2 saturations in the mid 90s on 3 L/m per nasal cannula. Today's chest x-ray shows evidence of fluid volume overload with some central vascular congestion and small to moderate size bilateral pleural effusions with atelectasis. He's been afebrile. Hemodynamically stable. Rate better controlled. INR 2.4. Objective - Vital Signs Vital signs: Vital Signs Temp 98.8 F 11/23/16 08:00 Pulse 106 H 11/23/16 08:00 Resp 20 11/23/16 08:00 BP 107/72 11/23/16 08:00 Pulse Ox 94 L 11/23/16 08:00 Intake & Output 11/22/16 11/23/16 11/23/16 18:59 06:59 18:59 Intake Total 850 240 Output Total 2035 715 50 Balance -1185 -715 190 Weight 107 kg Intake: IV 200 0.9 NS 100 Piperacillin-Tazobactam 3 100 .375 gm In Dextrose/Water 1 50ml.bag @ 12.5 mls/hr IVPB Q8HR [facility] Rx#: [id number] Oral 650 240 Output: Drainage 85 65 50 Left Lateral MEGHAN Drain 0 Medial MEGHAN Drain 85 65 50 Right Lateral MEGHAN Drain 0 Urine 1950 650 Other: Voiding Method Urinal Urinal # Voids 3 0 - Exam GENERAL EXAM: Alert, active, comfortable in no apparent distress. HEAD: Normocephalic. EYES: Normal reaction of pupils, equal size. NOSE: Clear with pink turbinates. THROAT: No erythema or exudates. NECK: No masses, no JVD. CHEST: No chest wall deformity. LUNGS: Equal air entry with crackles in the posterior bases. Diminished. CVS: S1 and S2 normal with no audible mumurs, irregular rhythm. ABDOMEN: No hepatosplenomegaly, normal bowel sounds, no guarding or rigidity. Extremities: There is trace peripheral edema. No clubbing, no cyanosis. Peripheral pulses are intact. - Labs CBC & Chem 7: 11/21/16 08:33 11/21/16 08:33 Labs: Abnormal Lab Results - Last 24 Hours (Table) 11/22/16 11/22/16 11/22/16 Range/Units 11:51 17:15 20:33 PT (9.0-12.0) sec POC Glucose (mg/dL) 121 H 148 H 107 H (75-99) mg/dL 11/23/16 Range/Units 06:06 PT 23.3 H (9.0-12.0) sec POC Glucose (mg/dL) (75-99) mg/dL Assessment and Plan Plan: Impression: 1 acute on chronic congestive heart failure secondary to diastolic dysfunction and possibly some component of LV dysfunction based on the echocardiogram. 2 recent aortic valve replacement and mitral valve repair. Postoperative day # 58 3 recent sternal wound dehiscence requiring pectoralis muscle flap. Postoperative day #38. Fluid from MEGHAN drain positive for Sravani albicans. 4 history of coronary artery disease and previous CABG. 5 acute hypoxic respiratory failure secondary to congestive heart failure, and bilateral pleural effusions. 6 persistent atrial fibrillation with variable rate, patient remains on IV heparin. 7 history of pleural effusions requiring thoracentesis 2 on the right side. Follow-up ultrasound of the chest today showed small amount of fluid on both sides, the fluid is loculated, and thoracentesis cannot be done. 8 moderate severe pulmonary hypertension. 9 history of chronic histoplasmosis. 10 history of degenerative joint disease. 11 history of GERD without esophagitis. 12 history of hypothyroidism. 13 history of coronary artery disease and previous CABG. Plan: The patient was seen and evaluated by Dr. Armando. His chest x-ray and labs were reviewed. We'll continue with the patient's current medications. He has been followed by infectious disease regarding the Sravani from the sternal MEGHAN drain fluid. We will increase his activity as tolerated. He is again encouraged regarding the increased use of the incentive spirometer and cough and deep breathing exercises. He is working well with therapy. They're waiting plans for either extended care facility or inpatient rehabilitation depending on Dr. Christina's recommendations.
[2016-11-23] MEDS: MULTIVITAMINS, THERA 1 EACH TAB PO SCH (12:20)
[2016-11-23 12:21] LABS: Glucose,Whole Blood 110 mg/dL (75-99)
--- NOTE | 2016-11-23 14:12 | P.PN ---
Subjective Principal diagnosis: Pulmonary edema, bilateral effusions, A. fib with RVR This is a 71-year-old gentleman with history of aortic valve replacement, mitral valve repair, CABG, chronic persistent atrial fibrillation, hyperlipidemia, hypothyroidism, mediastinal lymphadenopathy with histoplasmosis , moderate pulmonary hypertension, recurrent pleural effusions with thoracentesis, who presented back to the hospital with pleural effusions. Patient was seen in this morning, continues to be in atrial fibrillation with a heart rate around 100. Blood pressure 108/70 with a heart rate in the low 100s. 94% on 3 L of oxygen. Sitting up in a chair, overall states she's feeling better. Repeat chest x-ray performed this morning revealed diminished inspiration on current study, CHF exacerbation and mild cardiomegaly with central vascular congestion and small moderate size bilateral pleural effusions on re-demonstrated. INR 2.4 today. Objective - Vital Signs Vital signs: Vital Signs Temp 98.8 F 11/23/16 08:00 Pulse 108 H 11/23/16 11:58 Resp 20 11/23/16 08:00 BP 107/72 11/23/16 08:00 Pulse Ox 94 L 11/23/16 08:00 Intake & Output 11/22/16 11/23/16 11/23/16 18:59 06:59 18:59 Intake Total 850 240 Output Total 2035 715 50 Balance -1185 -715 190 Weight 107 kg Intake: IV 200 0.9 NS 100 Piperacillin-Tazobactam 3 100 .375 gm In Dextrose/Water 1 50ml.bag @ 12.5 mls/hr IVPB Q8HR [facility] Rx#: [id number] Oral 650 240 Output: Drainage 85 65 50 Left Lateral MEGHAN Drain 0 Medial MEGHAN Drain 85 65 50 Right Lateral MEGHAN Drain 0 Urine 1950 650 Other: Voiding Method Urinal Urinal # Voids 3 0 - Labs CBC & Chem 7: 11/21/16 08:33 11/21/16 08:33 Labs: Abnormal Lab Results - Last 24 Hours (Table) 11/22/16 11/22/16 11/23/16 Range/Units 17:15 20:33 06:06 PT 23.3 H (9.0-12.0) sec POC Glucose (mg/dL) 148 H 107 H (75-99) mg/dL 11/23/16 Range/Units 12:08 PT (9.0-12.0) sec POC Glucose (mg/dL) 110 H (75-99) mg/dL Assessment and Plan (1) Diastolic CHF, acute on chronic Status: Acute (2) S/P AVR (aortic valve replacement) Status: Acute (3) S/P MVR (mitral valve repair) Status: Acute (4) Hx of CABG Status: Acute (5) Pleural effusion Status: Acute (6) Chronic a-fib Status: Acute (7) Pulmonary HTN Status: Acute (8) Histoplasmosis Status: Acute (9) Hypothyroid Status: Acute Plan: From cardiology's perspective, we will recommend to continue the amiodarone, along with the metoprolol tartrate 25 mg one tablet by mouth 3 times a day. Continue current dose of by mouth Lasix. Range and circumflex being made for the patient transferred in patient rehab, we will continue to follow him there. DNP note has been reviewed, I agree with a documented findings and plan of care. Patient was seen and examined.
[2016-11-23 16:55] LABS: Glucose,Whole Blood 151 mg/dL (75-99)
[2016-11-23] MEDS ORDERED: WARFARIN 2.5 MG TAB PO ONE (19:00)
[2016-11-23 19:07] LABS: Anion Gap 8 mmol/L; Blood Urea Nitrogen 40 mg/dL (9-20); Calcium 6.8 mg/dL (8.4-10.2); Carbon Dioxide 37 mmol/L (22-30); Chloride 87 mmol/L (98-107); Glucose 88 mg/dL (74-99); Non-African American GFR(MDRD) 52 (>60 ml/min/1.73 sqM); Potassium 3.4 mmol/L (3.5-5.1); Sodium 132 mmol/L (137-145)
[2016-11-23 19:38] LABS: Anisocytosis Slight; CH 24.4; CHCM 26.9; HCT 29.1 % (39.0-53.0); HDW 4.01; HGB 7.7 gm/dL (13.0-17.5); Hypochromasia Marked; MCHC 26.6 g/dL (31.0-37.0); Poikilocytosis Moderate; RBC 3.22 m/uL (4.30-5.90); RBC Ghost Flag Slight; RDW 17.8 % (11.5-15.5); WBC 11.9 k/uL (3.8-10.6); WBC (Perox) 12.34
[2016-11-23 19:40] LABS: MCV 90.4 fL (80.0-100.0)
[2016-11-23 20:16] LABS: Add Differential Manual Differential; Manual Review Performed
[2016-11-23 20:19] LABS: Nucleated Red Blood Cells 0 /100 WBC (0-0); Total Cells Counted 100
[2016-11-23 20:20] LABS: Large Platelets Present
[2016-11-23 20:21] LABS: Target Cells Present
[2016-11-23 21:16] LABS: Glucose,Whole Blood 160 mg/dL (75-99)
[2016-11-23] MEDS: ATORVASTATIN 10 MG TAB PO SCH (22:05)
--- NOTE | 2016-11-23 22:51 | PN ---
DATE OF SERVICE: 11/23/2016 This 71-year-old gentleman who was admitted with CHF, acute exacerbation, also had recent aortic valve replacement as well as mitral valve repair. The patient is still having some shortness of breath, tiredness and weakness. The patient originally came from [facility] inpatient rehab through [facility] ICU. No chest pain. No palpitation. No fever. On exam, alert and oriented x3. Pulse is 110, blood pressure 115/74, respiration 18, temperature 97.4, pulse ox 94% on room air. HEENT: Conjunctivae normal. NECK: No jugular venous distention. CARDIOVASCULAR SYSTEM: S1, S2 muffled. Tachycardic. RESPIRATORY SYSTEM: Breath sounds diminished at the bases. Scattered rhonchi. ABDOMEN: Soft, non-tender. NERVOUS SYSTEM: No focal deficit. LABS AT THIS TIME: Glucose 110, 151. WBC 13.6, hemoglobin 8. ASSESSMENT: 1. Congestive heart failure, acute exacerbation, with acute on chronic diastolic dysfunction, ejection fraction 50% to 60%. 2. History of recent aortic valve replacement and mitral valve repair. 3. History of sternal wound dehiscence and pectoral flap replacement. 4. History of coronary artery disease, coronary artery bypass grafting. 5. Acute hypoxic respiratory failure, on high-flow nasal cannula 6. Paroxysmal atrial fibrillation. 7. Atrial fibrillation with a fast ventricular rate. 8. History of chronic histoplasmosis, status post biopsy. 9. History of pleural effusion, which was tapped. 10. Hypercholesterolemia. 11. Hypertension, essential. 12. Hypothyroidism. 13. Obesity; body mass index of 54.6. 14. History of degenerative joint disease. 15. History of moderate secondary pulmonary hypertension. 16. History of gastroesophageal reflux disease. 17. FULL CODE. RECOMMENDATIONS AND DISCUSSION: I recommend to continue with the current medications, continue with the monitoring, symptomatic treatment. Otherwise, at this time I recommend continuing with current medications, including amiodarone. Otherwise, continue to monitor. Follow closely with Cardiology. Continue with p.o. Lasix. Repeat labs will be ordered. Further recommendations to follow.
--- NOTE | 2016-11-23 23:02 | P.PN ---
Subjective Principal diagnosis: respiratory failure This is a 71-year-old male well known to ID service who came in the hospital on September 23 and underwent a JAYDE and heart catheterization showing a ruptured chordae tendonae, mitral regurgitation, moderate pulmonary hypertension , with history of paroxysmal atrial fibrillation and heart failure. 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 With this the patient was initiated to itraconazole. He however developed atrial fibrillation. Because of this he was initiated to amiodarone. The dose of itraconazole was reduced by 50%. There is no evidence of alteration of the QT interval while he was in hospital. He eventually was discharged home. It is related that he was not able to obtain the itraconazole. In this is going to be addressed in the coming days. However he returned to [facility] emergency center due to shortness of breath and was hospitalized October 06 through October 30 at which time he required intubation and mechanical ventilation. He was successfully extubated. He was treated for dehiscence of sternal wires requiring sternal exploration, debridement and wound closure with bilateral pectoralis major myocutaneous advanced flaps. He also required chest tube placement for left pleural effusion and right thoracentesis for right pleural effusion with drainage of 1.5 L of dark red tinged fluid. Muscle flap procedure was done on October 15. Patient was stabilized and then transferred to [facility] for inpatient rehab under the care of Dr. Christina. He developed increasing shortness of breath and edema and was eventually transferred to the intensive care unit where he was found to be in atrial fibrillation with rapid ventricular response and acute systolic heart failure and underwent thoracentesis with removal of 1.6 L on the right chest. Patient was treated in the intensive care unit until a bed was available at [facility] he was a direct transfer. Chest x-ray here shows developing pleural fluid collection along lateral right chest wall. Consults are in place with Dr. Gaffney, cardiovascular surgeon and cardiology. Patient has [address] with one showing some purulence for which a culture to be sent today. Patient has had some mild confusion since admission. He did receive extra dose of Lasix this morning. He has been afebrile. Patient is on heparin drip and amiodarone is oral. For antibiotics, patient is on Zosyn. Echocardiogram reveals EF 40-45%, normally functioning bioprosthetic valve, trace mitral regurgitation, mild tricuspid regurgitation. Sputum culture during his hospitalization of October 06 was positive for Haemophilus influenza and Serratia marcescens susceptible to Zosyn. Continues to show significant improvement. Voice is stronger. Sitting upright. Eating better. Less short of breath. Less sputum production. Working with PT and improving, to be evaluated by PMNR for placement in rehab Objective - Vital Signs Vital signs: Vital Signs Temp 97.1 F L 11/23/16 20:00 Pulse 110 H 11/23/16 20:03 Resp 14 11/23/16 20:03 BP 100/61 11/23/16 20:00 Pulse Ox 90 L 11/23/16 20:00 Intake & Output 11/23/16 11/23/16 11/24/16 06:59 18:59 06:59 Intake Total 855 Output Total 715 800 Balance -715 55 Weight 107 kg Intake: IV 0 0.9 NS 0 Intake, IV Titration 50 Amount Piperacillin-Tazobactam 3 50 .375 gm In Dextrose/Water 1 50ml.bag @ 12.5 mls/hr IVPB Q8HR [facility] Rx#: [id number] Oral 805 Output: Drainage 65 100 Left Lateral MEGHAN Drain 10 Medial MEGHAN Drain 65 90 Right Lateral MEGHAN Drain 0 Urine 650 700 Other: Voiding Method Urinal Urinal # Voids 0 # Bowel Movements 1 - Exam This is a 71-year-old male. He appears comfortable lying in ICU bed. He does arouse to verbal stimuli and is able to follow simple commands and answer questions. Cardiac monitors atrial fibrillation with rapid ventricular response. HEENT: Head is atraumatic, normocephalic. Pupils equal, round. Sclerae is anicteric. Conjunctiva slightly pale. Mucous membranes of the mouth are dry. No thrush noted. NECK: Supple. No JVD. No lymphadenopathy. No thyromegaly. LUNGS: improved air exchange No significant bronchial sounds. MEGHAN drain to the right chest shows serous drainage small amount. MEGHAN drain to the midsternal area show serosanguineous with some yellow exudate. Left lateral MEGHAN drain with serous drainage. HEART: Irregular with no murmur Dressing on sternal wound and place. ABDOMEN: Distinctly distended. Bowel sounds are normal. Organomegaly is not detected. Abdomen is nontender. EXTREMITIES: +3 bilateral pedal edema. SCDs in place. NEUROLOGICAL: Awake and alert. No acute gross focal sensory motor deficits except generalized weakness. Vocal quality improved - Labs CBC & Chem 7: 11/23/16 06:06 11/23/16 06:06 Labs: Abnormal Lab Results - Last 24 Hours (Table) 11/23/16 11/23/16 11/23/16 Range/Units 06:06 06:06 06:06 WBC 11.9 H (3.8-10.6) k/uL RBC 3.22 L (4.30-5.90) m/uL Hgb 7.7 L (13.0-17.5) gm/dL Hct 29.1 L (39.0-53.0) % MCH 24.0 L (25.0-35.0) pg MCHC 26.6 L (31.0-37.0) g/dL RDW 17.8 H (11.5-15.5) % Neutrophils # (Manual) 9.9 H (1.3-7.7) k/uL PT 23.3 H (9.0-12.0) sec Sodium 132 L (137-145) mmol/L Potassium 3.4 L (3.5-5.1) mmol/L Chloride 87 L (98-107) mmol/L Carbon Dioxide 37 H (22-30) mmol/L BUN 40 H (9-20) mg/dL Creatinine 1.34 H (0.66-1.25) mg/dL POC Glucose (mg/dL) (75-99) mg/dL Calcium 6.8 L (8.4-10.2) mg/dL 11/23/16 11/23/16 11/23/16 Range/Units 12:08 16:50 21:14 WBC (3.8-10.6) k/uL RBC (4.30-5.90) m/uL Hgb (13.0-17.5) gm/dL Hct (39.0-53.0) % MCH (25.0-35.0) pg MCHC (31.0-37.0) g/dL RDW (11.5-15.5) % Neutrophils # (Manual) (1.3-7.7) k/uL PT (9.0-12.0) sec Sodium (137-145) mmol/L Potassium (3.5-5.1) mmol/L Chloride (98-107) mmol/L Carbon Dioxide (22-30) mmol/L BUN (9-20) mg/dL Creatinine (0.66-1.25) mg/dL POC Glucose (mg/dL) 110 H 151 H 160 H (75-99) mg/dL Calcium (8.4-10.2) mg/dL Laboratory Results WBC 11.9 k/uL (3.8-10.6) H 11/23/16 06:06 RBC 3.22 m/uL (4.30-5.90) L 11/23/16 06:06 Hgb 7.7 gm/dL (13.0-17.5) L 11/23/16 06:06 Hct 29.1 % (39.0-53.0) L 11/23/16 06:06 MCV 90.4 fL (80.0-100.0) D 11/23/16 06:06 MCH 24.0 pg (25.0-35.0) L 11/23/16 06:06 MCHC 26.6 g/dL (31.0-37.0) L 11/23/16 06:06 RDW 17.8 % (11.5-15.5) H 11/23/16 06:06 Plt Count 374 k/uL (150-450) 11/23/16 06:06 Neutrophils % 83 % 11/20/16 05:50 Neutrophils % (Manual) 81.0 % 11/23/16 06:06 Band Neutrophils % 2.0 % 11/23/16 06:06 Lymphocytes % 9 % 11/20/16 05:50 Lymphocytes % (Manual) 11.0 % 11/23/16 06:06 Monocytes % 5 % 11/20/16 05:50 Monocytes % (Manual) 4.0 % 11/23/16 06:06 Eosinophils % 1 % 11/20/16 05:50 Eosinophils % (Manual) 2.0 % 11/23/16 06:06 Basophils % 0 % 11/20/16 05:50 Neutrophils # 10.4 k/uL (1.3-7.7) H 11/20/16 05:50 Neutrophils # (Manual) 9.9 k/uL (1.3-7.7) H 11/23/16 06:06 Lymphocytes # 1.1 k/uL (1.0-4.8) 11/20/16 05:50 Lymphocytes # (Manual) 1.3 k/uL (1.0-4.8) 11/23/16 06:06 Monocytes # 0.6 k/uL (0-1.0) 11/20/16 05:50 Monocytes # (Manual) 0.5 k/uL (0-1.0) 11/23/16 06:06 Eosinophils # 0.2 k/uL (0-0.7) 11/20/16 05:50 Eosinophils # (Manual) 0.2 k/uL (0-0.7) 11/23/16 06:06 Basophils # 0.1 k/uL (0-0.2) 11/20/16 05:50 Nucleated RBCs 0 /100 WBC (0-0) 11/23/16 06:06 Manual Slide Review Performed 11/23/16 06:06 Large Platelets Present 11/23/16 06:06 Polychromasia Present 11/15/16 04:18 Hypochromasia Marked 11/23/16 06:06 Hypochromasia (manual) Pres 11/15/16 04:18 Poikilocytosis Moderate 11/23/16 06:06 Anisocytosis Slight 11/23/16 06:06 Anisocytosis (manual) Present 11/15/16 04:18 Spherocytes Present 11/15/16 04:18 Target Cells Present 11/23/16 06:06 PT 23.3 sec (9.0-12.0) H 11/23/16 06:06 INR 2.4 (<1.1) 11/23/16 06:06 APTT 30.5 sec (22.0-30.0) H 11/20/16 05:50 Sodium 132 mmol/L (137-145) L 11/23/16 06:06 Potassium 3.4 mmol/L (3.5-5.1) L 11/23/16 06:06 Chloride 87 mmol/L (98-107) L 11/23/16 06:06 Carbon Dioxide 37 mmol/L (22-30) H 11/23/16 06:06 Anion Gap 8 mmol/L 11/23/16 06:06 BUN 40 mg/dL (9-20) H 11/23/16 06:06 Creatinine 1.34 mg/dL (0.66-1.25) H 11/23/16 06:06 Est GFR (MDRD) Af Amer >60 (>60 ml/min/1.73 sqM) 11/23/16 06:06 Est GFR (MDRD) Non-Af 52 (>60 ml/min/1.73 sqM) 11/23/16 06:06 Glucose 88 mg/dL (74-99) 11/23/16 06:06 POC Glucose (mg/dL) 160 mg/dL (75-99) H 11/23/16 21:14 POC Glu [employer] Lana Nelson 11/23/16 21:[address] Glu mg/dL 103 mg/dL 11/13/16 21:54 Hemoglobin A1c 5.2 % (4.2-6.1) 11/13/16 21:54 Plasma Lactic Acid Samir 1.7 mmol/L (0.7-2.0) 11/16/16 03:39 Calcium 6.8 mg/dL (8.4-10.2) L 11/23/16 06:06 Phosphorus 4.1 mg/dL (2.5-4.5) 11/19/16 04:18 Magnesium 2.3 mg/dL (1.6-2.3) 11/19/16 04:18 Total Bilirubin 1.1 mg/dL (0.2-1.3) 11/21/16 08:33 AST 21 U/L (17-59) 11/21/16 08:33 ALT 27 U/L (21-72) 11/21/16 08:33 Alkaline Phosphatase 87 U/L (38-126) 11/21/16 08:33 NT-Pro-B Natriuret Pep 6900 pg/mL 11/18/16 04:30 Total Protein 6.4 g/dL (6.3-8.2) 11/21/16 08:33 Albumin 2.6 g/dL (3.5-5.0) L 11/21/16 08:33 Free T4 1.58 ng/dL (0.78-2.19) 11/15/16 04:18 Thyroid Stim Immunoglob <0.10 IU/L (<0.10) 11/15/16 04:18 Urine Color Yellow 11/16/16 01:30 Urine Appearance Clear (Clear) 11/16/16 01:30 Urine pH 6.0 (5.0-8.0) 11/16/16 01:30 Ur Specific [place] 1.009 (1.001-1.035) 11/16/16 01:30 Urine Protein Negative (Negative) 11/16/16 01:30 Urine Glucose (UA) Negative (Negative) 11/16/16 01:30 Urine Ketones Negative (Negative) 11/16/16 01:30 Urine Blood Negative (Negative) 11/16/16 01:30 Urine Nitrite Negative (Negative) 11/16/16 01:30 Urine Bilirubin Negative (Negative) 11/16/16 01:30 Urine Urobilinogen <2.0 mg/dL (<2.0) 11/16/16 01:30 Ur Leukocyte Esterase Negative (Negative) 11/16/16 01:30 Microbiology 11/15/16 10:30 Pericardial Fluid Gram Stain - Final 11/15/16 10:30 Pericardial Fluid Body Fluid Culture - Final Sravani albicans 11/16/16 01:30 Urine,Catheterized Urine Culture - Final Assessment and Plan (1) Acute respiratory failure Narrative/Plan: He has not the patient decompensated last evening. He became more tachypneic and tachycardic and her relative hypotension. Also mild increase of his lactic acid. This is almost resolved. He was transferred to the intensive care unit is feeling better. His speech is getting stronger. Was able to self feed his entire dinner without difficulties later in the day. And has no other new acute complaints. Continue supportive care. Current thoracic is following with no plans for any surgical intervention. The patient's MEGHAN drain was cultured and show some Srvaani. This colonization of the drain outside of the patient. He does not require any specific therapy. Especially since he is so clinically improved at this point in time. Improving leukocytosis improving fevers improving strength. Not likely to have a deep-seated Sravani infection at this time. Currently receiving Zosyn therapy which is allowed a rapid improvement. We'll plan 7 days course of therapy. today completes his course of therapy. Will be evaluated by PMNR possible for transfer to rehab. Status: Acute
[2016-11-24 05:44] LABS: Glucose,Whole Blood 123 mg/dL (75-99)
[2016-11-24 06:04] LABS: Anisocytosis Slight; Basophils % (A) 0 %; CH 24.5; CHCM 29.3; Eosinophils # (A) 0.1 k/uL (0-0.7); Eosinophils % (A) 1 %; HDW 4.31; HGB 7.8 gm/dL (13.0-17.5); Hypochromasia Marked; Luc # (Auto) 0.19; Luc % (Auto) 2; Lymphocytes # (A) 1.1 k/uL (1.0-4.8); Lymphocytes % (A) 9 %; MCH 24.2 pg (25.0-35.0); MCHC 28.9 g/dL (31.0-37.0); Mean Platelet Volume 7.4; Monocytes # (A) 0.6 k/uL (0-1.0); Monocytes % (A) 5 %; Neutrophils # (A) 10.1 k/uL (1.3-7.7); Neutrophils % (A) 83 %; Poikilocytosis Moderate; RBC 3.23 m/uL (4.30-5.90); RDW 18.6 % (11.5-15.5); WBC 12.1 k/uL (3.8-10.6); WBC (Perox) 13.05
[2016-11-24 06:14] LABS: INR 2.1 (<1.1); MCV 83.6 fL (80.0-100.0); Prothrombin Time 20.2 sec (9.0-12.0)
[2016-11-24] MEDS: PANTOPRAZOLE 40 MG TABLET PO SCH (06:14)
[2016-11-24] MEDS: LEVOTHYROXINE 75 MCG TAB PO SCH (06:14)
[2016-11-24 06:15] LABS: Anion Gap 11 mmol/L; Blood Urea Nitrogen 38 mg/dL (9-20); Calcium 6.8 mg/dL (8.4-10.2); Carbon Dioxide 35 mmol/L (22-30); Chloride 87 mmol/L (98-107); Glucose 110 mg/dL (74-99); Non-African American GFR(MDRD) 51 (>60 ml/min/1.73 sqM); Potassium 3.3 mmol/L (3.5-5.1); Sodium 133 mmol/L (137-145)
[2016-11-24] MEDS: INSULIN LISPRO (humaLOG) 300 UNIT/3 ML VIAL SQ SCH ×4 (06:43→22:01)
[2016-11-24] MEDS: IPRATROPIUM-ALBUTEROL 3 ML NEB INHALATION SCH ×4 (08:42→19:41)
[2016-11-24] MEDS: POTASSIUM CHLORIDE ER 20 MEQ TAB.ER PO SCH ×2 (08:54→09:49)
[2016-11-24] MEDS: PIPERACILLIN-TAZOBACTAM 3.375 GM in DEXTROSE/WATER 1 50ML.BAG IVPB SCH ×3 (08:57→22:02)
--- NOTE | 2016-11-24 09:20 | P.PN ---
Subjective Principal diagnosis: POD #59 aortic valve replacement, mitral valve repair, mediastinal lymph node biopsy. POD #39 muscle flap closure after sternal wound dehiscence. Paroxysmal atrial fibrillation currently treated with amiodarone and Coumadin History of CAD, hyperlipidemia, moderate pulmonary hypertension, acquired hypothyroidism status post thyroid cancer with surgery and radiation, history of right lower extremity DVT Currently sitting up in chair in no apparent distress. States he has been up walking with physical therapy. Final fluid culture from MEGHAN drainage positive for mine albicans, treatment per Dr. Ramos. Awaiting repeat rehab recommendations by PT/OT/Dr. Christina. Objective - Vital Signs Vital signs: Vital Signs Temp 96.7 F L 11/24/16 08:30 Pulse 105 H 11/24/16 08:30 Resp 20 11/24/16 08:30 BP 87/56 11/24/16 08:30 Pulse Ox 93 L 11/24/16 08:30 Intake & Output 11/23/16 11/24/16 11/24/16 18:59 06:59 18:59 Intake Total 855 50 240 Output Total 800 650 60 Balance 55 -600 180 Weight 106.8 kg Intake: IV 0 50 0.9 NS 0 Piperacillin-Tazobactam 3 50 .375 gm In Dextrose/Water 1 50ml.bag @ 12.5 mls/hr IVPB Q8HR [facility] Rx#: [id number] Intake, IV Titration 50 Amount Piperacillin-Tazobactam 3 50 .375 gm In Dextrose/Water 1 50ml.bag @ 12.5 mls/hr IVPB Q8HR [facility] Rx#: [id number] Oral 805 240 Output: Drainage 100 60 Left Lateral MEGHAN Drain 10 10 Medial MEGHAN Drain 90 50 Right Lateral MEGHAN Drain 0 0 Urine 700 650 Other: Voiding Method Urinal Urinal # Voids 1 # Bowel Movements 1 - Constitutional General appearance: Present: cooperative, no acute distress, obese - Respiratory Details: Lungs sounds very diminished bilaterally. Respirations even, nonlabored. Currently on room air with oxygen saturation 95%. Still only able to achieve 500 mL on incentive spirometry. - Cardiovascular Details: S1, S2 present. Irregular, tachycardia rate and rhythm, A. fib with RVR on telemetry although better controlled today, heart rate high 90s to low 100s. Left MEGHAN no drainage since noon yesterday, right MEGHAN had 10 mL drainage in the last 24 hours, middle MEGHAN had 50 mL drainage in the last 24 hours. Bilateral lower extremity edema still present. - Gastrointestinal Gastrointestinal Comment(s): Abdomen soft, nontender, nondistended. Active bowel sounds 4 quadrants. Positive bowel movement yesterday. Tolerating diet. - Genitourinary Genitourinary Comment(s): Continues to void clear, yellow urine per urinal. - Musculoskeletal Musculoskeletal: Present: strength equal bilaterally - Psychiatric Psychiatric: Present: A&O x's 3, appropriate affect, intact judgment & insight - Allied health notes Allied health notes reviewed: nursing - Labs CBC & Chem 7: 11/24/16 05:33 11/24/16 05:33 Labs: Abnormal Lab Results - Last 24 Hours (Table) 11/23/16 11/23/16 11/23/16 Range/Units 06:06 06:06 12:08 WBC 11.9 H (3.8-10.6) k/uL RBC 3.22 L (4.30-5.90) m/uL Hgb 7.7 L (13.0-17.5) gm/dL Hct 29.1 L (39.0-53.0) % MCH 24.0 L (25.0-35.0) pg MCHC 26.6 L (31.0-37.0) g/dL RDW 17.8 H (11.5-15.5) % Plt Count (150-450) k/uL Neutrophils # (1.3-7.7) k/uL Neutrophils # (Manual) 9.9 H (1.3-7.7) k/uL PT (9.0-12.0) sec Sodium 132 L (137-145) mmol/L Potassium 3.4 L (3.5-5.1) mmol/L Chloride 87 L (98-107) mmol/L Carbon Dioxide 37 H (22-30) mmol/L BUN 40 H (9-20) mg/dL Creatinine 1.34 H (0.66-1.25) mg/dL Glucose (74-99) mg/dL POC Glucose (mg/dL) 110 H (75-99) mg/dL Calcium 6.8 L (8.4-10.2) mg/dL 11/23/16 11/23/16 11/24/16 Range/Units 16:50 21:14 05:33 WBC (3.8-10.6) k/uL RBC (4.30-5.90) m/uL Hgb (13.0-17.5) gm/dL Hct (39.0-53.0) % MCH (25.0-35.0) pg MCHC (31.0-37.0) g/dL RDW (11.5-15.5) % Plt Count (150-450) k/uL Neutrophils # (1.3-7.7) k/uL Neutrophils # (Manual) (1.3-7.7) k/uL PT 20.2 H (9.0-12.0) sec Sodium (137-145) mmol/L Potassium (3.5-5.1) mmol/L Chloride (98-107) mmol/L Carbon Dioxide (22-30) mmol/L BUN (9-20) mg/dL Creatinine (0.66-1.25) mg/dL Glucose (74-99) mg/dL POC Glucose (mg/dL) 151 H 160 H (75-99) mg/dL Calcium (8.4-10.2) mg/dL 11/24/16 11/24/16 11/24/16 Range/Units 05:33 05:33 05:35 WBC 12.1 H (3.8-10.6) k/uL RBC 3.23 L (4.30-5.90) m/uL Hgb 7.8 L (13.0-17.5) gm/dL Hct 27.0 L (39.0-53.0) % MCH 24.2 L (25.0-35.0) pg MCHC 28.9 L (31.0-37.0) g/dL RDW 18.6 H (11.5-15.5) % Plt Count 547 H (150-450) k/uL Neutrophils # 10.1 H (1.3-7.7) k/uL Neutrophils # (Manual) (1.3-7.7) k/uL PT (9.0-12.0) sec Sodium 133 L (137-145) mmol/L Potassium 3.3 L (3.5-5.1) mmol/L Chloride 87 L (98-107) mmol/L Carbon Dioxide 35 H (22-30) mmol/L BUN 38 H (9-20) mg/dL Creatinine 1.38 H (0.66-1.25) mg/dL Glucose 110 H (74-99) mg/dL POC Glucose (mg/dL) 123 H (75-99) mg/dL Calcium 6.8 L (8.4-10.2) mg/dL Assessment and Plan (1) Congestive heart failure Status: Acute (2) Hypercholesterolemia Status: Acute (3) Hypertension Status: Acute (4) Hypothyroidism (acquired) Status: Acute (5) Obesity Status: Acute (6) Paroxysmal a-fib Status: Acute (7) Status post aortic valve replacement Status: Acute (8) Status post mitral valve repair Status: Acute (9) History of deep venous thrombosis (DVT) of distal vein of right lower extremity Status: Acute Plan: 1. Continue aspirin, amiodarone, Lopressor, Lasix, Zaroxolyn. 2. MEGHAN drain final cultures demonstrating Mine albicans. Infectious disease following. 3. Wean O2 as tolerated. Encourage incentive spirometry use. 4. Medical comorbidities to be managed by internal medicine. 5. Encourage increased activity. Physical therapy to follow 6. INR 2.1 this morning. Coumadin dosing to be done per cardiology. Per Dr. Garcia's note, patient will need anticoagulation for 4 weeks and then may be a possible candidate for cardioversion. 7. No indication for cardiothoracic surgical intervention at this time. 8. Discharge planning in process. IPR versus YODIT based on PT/OT/Dr. Christina's recommendations. Information sent to [facility] rehab by social work yesterday. Time with Patient: Greater than 30
[2016-11-24] MEDS: AMIODARONE 200 MG TAB PO SCH (09:31)
[2016-11-24] MEDS: ASPIRIN 81 MG CHEW PO SCH (09:31)
[2016-11-24] MEDS: METOLAZONE 2.5 MG TAB PO SCH (09:32)
[2016-11-24] MEDS: METOPROLOL TARTRATE 25 MG TAB PO SCH ×3 (09:32→22:01)
[2016-11-24] MEDS: FUROSEMIDE 40 MG TAB PO SCH ×2 (09:49→15:40)
--- NOTE | 2016-11-24 10:33 | P.PN ---
Subjective Principal diagnosis: Pulmonary edema, bilateral effusions, A. fib with RVR This is a 71-year-old gentleman with history of aortic valve replacement, mitral valve repair, CABG, chronic persistent atrial fibrillation, hyperlipidemia, hypothyroidism, mediastinal lymphadenopathy with histoplasmosis , moderate pulmonary hypertension, recurrent pleural effusions with thoracentesis, who presented back to the hospital with pleural effusions. Patient was seen in this morning, continues to be in atrial fibrillation with a heart rate around 100. Blood pressure 106/70 with a heart rate in the low 100s. 93% on room air. Sitting up in a chair, overall states he's feeling much better. Repeat chest x-ray performed yestereday revealed diminished inspiration on current study, CHF exacerbation and mild cardiomegaly with central vascular congestion and small moderate size bilateral pleural effusions all re-demonstrated. INR 2.1 today. Potassium 3.3, BUN 38, creatinine 1.3. Objective - Vital Signs Vital signs: Vital Signs Temp 96.7 F L 11/24/16 08:30 Pulse 105 H 11/24/16 08:30 Resp 20 11/24/16 08:30 BP 87/56 11/24/16 08:30 Pulse Ox 93 L 11/24/16 08:30 Intake & Output 11/23/16 11/24/16 11/24/16 18:59 06:59 18:59 Intake Total 855 50 240 Output Total 800 650 60 Balance 55 -600 180 Weight 106.8 kg Intake: IV 0 50 0.9 NS 0 Piperacillin-Tazobactam 3 50 .375 gm In Dextrose/Water 1 50ml.bag @ 12.5 mls/hr IVPB Q8HR [facility] Rx#: [id number] Intake, IV Titration 50 Amount Piperacillin-Tazobactam 3 50 .375 gm In Dextrose/Water 1 50ml.bag @ 12.5 mls/hr IVPB Q8HR [facility] Rx#: [id number] Oral 805 240 Output: Drainage 100 60 Left Lateral MEGHAN Drain 10 10 Medial MEGHAN Drain 90 50 Right Lateral MEGHAN Drain 0 0 Urine 700 650 Other: Voiding Method Urinal Urinal # Voids 1 # Bowel Movements 1 - Exam PHYSICAL EXAMINATION: HEENT: Head is atraumatic, normocephalic. Pupils equal, round. Neck is supple. There is no elevated jugular venous pressure. HEART EXAMINATION: Heart S1 and S2 irregularly irregular systolic murmur is heard. Chest wall dressing in place. CHEST EXAMINATION: Lungs reveal diminished breath sounds bilaterally with crackles to the bases. ABDOMEN: Soft, nontender. Bowel sounds are heard. No organomegaly noted. EXTREMITIES: 2+ peripheral pulses with 2+ evidence of peripheral edema and no calf tenderness noted. NEUROLOGIC patient is awake, alert and oriented -3. . - Labs CBC & Chem 7: 11/24/16 05:33 11/24/16 05:33 Labs: Abnormal Lab Results - Last 24 Hours (Table) 11/23/16 11/23/16 11/23/16 Range/Units 06:06 06:06 12:08 WBC 11.9 H (3.8-10.6) k/uL RBC 3.22 L (4.30-5.90) m/uL Hgb 7.7 L (13.0-17.5) gm/dL Hct 29.1 L (39.0-53.0) % MCH 24.0 L (25.0-35.0) pg MCHC 26.6 L (31.0-37.0) g/dL RDW 17.8 H (11.5-15.5) % Plt Count (150-450) k/uL Neutrophils # (1.3-7.7) k/uL Neutrophils # (Manual) 9.9 H (1.3-7.7) k/uL PT (9.0-12.0) sec Sodium 132 L (137-145) mmol/L Potassium 3.4 L (3.5-5.1) mmol/L Chloride 87 L (98-107) mmol/L Carbon Dioxide 37 H (22-30) mmol/L BUN 40 H (9-20) mg/dL Creatinine 1.34 H (0.66-1.25) mg/dL Glucose (74-99) mg/dL POC Glucose (mg/dL) 110 H (75-99) mg/dL Calcium 6.8 L (8.4-10.2) mg/dL 11/23/16 11/23/16 11/24/16 Range/Units 16:50 21:14 05:33 WBC (3.8-10.6) k/uL RBC (4.30-5.90) m/uL Hgb (13.0-17.5) gm/dL Hct (39.0-53.0) % MCH (25.0-35.0) pg MCHC (31.0-37.0) g/dL RDW (11.5-15.5) % Plt Count (150-450) k/uL Neutrophils # (1.3-7.7) k/uL Neutrophils # (Manual) (1.3-7.7) k/uL PT 20.2 H (9.0-12.0) sec Sodium (137-145) mmol/L Potassium (3.5-5.1) mmol/L Chloride (98-107) mmol/L Carbon Dioxide (22-30) mmol/L BUN (9-20) mg/dL Creatinine (0.66-1.25) mg/dL Glucose (74-99) mg/dL POC Glucose (mg/dL) 151 H 160 H (75-99) mg/dL Calcium (8.4-10.2) mg/dL 11/24/16 11/24/16 11/24/16 Range/Units 05:33 05:33 05:35 WBC 12.1 H (3.8-10.6) k/uL RBC 3.23 L (4.30-5.90) m/uL Hgb 7.8 L (13.0-17.5) gm/dL Hct 27.0 L (39.0-53.0) % MCH 24.2 L (25.0-35.0) pg MCHC 28.9 L (31.0-37.0) g/dL RDW 18.6 H (11.5-15.5) % Plt Count 547 H (150-450) k/uL Neutrophils # 10.1 H (1.3-7.7) k/uL Neutrophils # (Manual) (1.3-7.7) k/uL PT (9.0-12.0) sec Sodium 133 L (137-145) mmol/L Potassium 3.3 L (3.5-5.1) mmol/L Chloride 87 L (98-107) mmol/L Carbon Dioxide 35 H (22-30) mmol/L BUN 38 H (9-20) mg/dL Creatinine 1.38 H (0.66-1.25) mg/dL Glucose 110 H (74-99) mg/dL POC Glucose (mg/dL) 123 H (75-99) mg/dL Calcium 6.8 L (8.4-10.2) mg/dL Assessment and Plan (1) Diastolic CHF, acute on chronic Status: Acute (2) S/P AVR (aortic valve replacement) Status: Acute (3) S/P MVR (mitral valve repair) Status: Acute (4) Hx of CABG Status: Acute (5) Pleural effusion Status: Acute (6) Chronic a-fib Status: Acute (7) Pulmonary HTN Status: Acute (8) Histoplasmosis Status: Acute (9) Hypothyroid Status: Acute Plan: From cardiology's perspective, we will recommend to continue the amiodarone, along with the metoprolol tartrate 25 mg one tablet by mouth 3 times a day. Continue current dose of by mouth Lasix. Arrangements being made for the patient transferred in patient rehab, we will continue to follow him there. DNP note has been reviewed, I agree with a documented findings and plan of care. Patient was seen and examined.
[2016-11-24 12:04] LABS: Glucose,Whole Blood 119 mg/dL (75-99)
--- NOTE | 2016-11-24 12:57 | PN ---
This is a 71-year-old gentleman who was seen again today. He is in the selective unit in Room 680. He is awake and in no acute distress. Ambulating in the room. Being helped by physical and occupational therapy. The patient denies any worsening shortness of breath, cough or chest congestion. Saturations are excellent on a couple liters nasal cannula. His chest x-ray shows evidence of some mild fluid overload. He has some small bilateral pleural effusions with some bibasilar atelectasis. He is afebrile. Hemodynamically stable. Better control of his rate and rhythm. INR is therapeutic. He is feeling well. Temperature 96.7, heart rate is 90, respiratory rate 20, blood pressure 106/72 with mean 83, room air saturation 95%. Appears in no acute distress. He is pale and weak. HEENT examination is grossly unremarkable. NECK: Supple. Full range of motion. No adenopathy or thyromegaly. Neck veins are flat. Cardiovascular examination reveals irregular rhythm and rate. S1, S2 normal. There is no audible murmur. Lungs reveal relatively clear breath sounds. Breath sounds are diminished. No wheezes, rhonchi or crackles. ABDOMEN: Soft. Bowel sounds are heard. Extremities are intact. Trace peripheral edema. No cyanosis or clubbing. Skin is without rash. Labs are reviewed. White count 12.1, hemoglobin 7.8, hematocrit 27.0, platelet count of 547,000. PT and INR is 20.2 and 2.1 respectively. Sodium 133, potassium 3.3, chloride 87, CO2 of 35, BUN and creatinine were 38 and 1.38. Microbiology is essentially negative. There is some Sravani in the pericardial fluid. No recent x-ray to report. The last chest x-ray was done yesterday. Medications are reviewed. ASSESSMENT: 1. Acute on chronic congestive heart failure secondary to diastolic dysfunction. 2. Recent aortic valve replacement and mitral valve repair, postoperative day #59. 3. Status post repair of sternal wound dehiscence requiring pectoralis muscle flap, postoperative day #39. 4. History of coronary artery disease with previous bypass grafting. 5. Acute hypoxemic respiratory failure. 6. Persistent atrial fibrillation with rapid ventricular response. 7. History of bilateral pleural effusions with thoracentesis x2 on the right. 8. Moderate to severe pulmonary hypertension. 9. History of degenerative joint disease. 10. History of gastroesophageal reflux disease. 11. History of hypothyroidism. PLAN: Will continue to follow. Prognosis is guarded. Overall situation is improved. Clinical history is improved. Will continue to follow closely. Medications are reviewed. No additional recommendations are made.
[2016-11-24] MEDS: MULTIVITAMINS, THERA 1 EACH TAB PO SCH (12:58)
--- NOTE | 2016-11-24 15:46 | DS ---
DATE OF ADMISSION: 11/13/2016 DATE OF DISCHARGE: 11/24/2016 FINAL DIAGNOSES: 1. Acute on chronic congestive heart failure exacerbation from diastolic dysfunction; ejection fraction 55% to 60%. 2. Recent aortic valve replacement and mitral valve repair. 3. History of sternal wound dehiscence with pectoralis flap in place. 4. Coronary artery disease with prior coronary artery bypass. 5. Acute hypoxic respiratory failure, present on admission. 6. Persistent atrial fibrillation, chronically on anticoagulation. 7. Chronic histoplasmosis, status post biopsy. 8. Hypercholesterolemia. 9. Hypothyroidism. 10. Obesity. 11. Primary osteoarthritis in multiple joints, bilateral. 12. Moderate secondary pulmonary hypertension. 13. Gastroesophageal reflux disease. CONSULTATIONS: 1. Dr. Gaffney and colleagues from Pulmonary. 2. Dr. Garcia and colleagues from Cardiology. 3. Dr. Crawford from Cardiothoracic. 4. Dr. Ramos from Infectious Disease. HOSPITAL COURSE: This is a very pleasant 71-year-old patient who was initially at [facility] after sternal surgery was done with a pectoralis flap; falling; wound dehiscence. Patient had had aortic valve replaced and a mitral valve repair prior to that. Patient is on Coumadin for atrial fibrillation. Patient was then sent to [facility], where he decompensated, went down to the ICU there and finally was transferred over. Patient has 3 drains in the chest. The middle one is actually putting out about 100 mL/hour. The patient remains in atrial fibrillation. No surgical intervention was carried out. Patient today is going to complete his course of IV Zosyn. Patient is felt to have some colonization of the MEGHAN drain with mine. Patient is eating well, having bowel movement. ( ) the care was discussed with the patient and his in detail. Questions were answered. Patient is tolerating his diet well. Course of antibiotics will be completed today. Patient has good pulse ox on room air. He has some residual edema with Kieran wraps in place. On exam, sitting up in a chair. Not in distress. LUNGS: Decreased breath sounds. Occasional crackles. CARDIOVASCULAR: First and second sounds normal. Edema present. PSYCHIATRY: Alert and oriented x3. Mood and affect are normal. INVESTIGATIONS: White count 12.1, hemoglobin 7.8, platelets 547. Potassium 3.3. BUN 38, creatinine 1.38. DISCHARGE MEDICATIONS: 1. Aspirin 81 mg a day. 2. Synthroid 150 mcg p.o. daily. 3. Bowie 1 to 2 tablets q.6 p.r.n. 4. Multivitamin 1 tablet p.o. daily. 5. Coumadin 5 mg p.o. daily. 6. Protonix 40 mg with breakfast. 7. Lasix 40 mg b.i.d. 8. Mevacor 40 mg at bedtime. 9. Cordarone 400 mg p.o. daily. 10. DuoNeb t.i.d. 11. Lopressor 25 mg p.o. t.i.d. 12. Potassium 20 mEq a day. DISPOSITION: Inpatient rehab at [facility]. Accepting physician is Dr. Christina. Follow up with Cardiology in one week, Pulmonary in one week ( ) currently patient is 92% on room air. Discharge planning more than 35 minutes. Care was discussed in detail with the patient and his .
[2016-11-24] MEDS ORDERED: POTASSIUM CHLORIDE ER 20 MEQ TAB.ER PO SCH (16:00)
[2016-11-24 17:07] LABS: Glucose,Whole Blood 137 mg/dL (75-99)
[2016-11-24] MEDS ORDERED: WARFARIN 2.5 MG TAB PO ONE (20:15)
--- NOTE | 2016-11-24 20:32 | P.PN ---
Subjective Principal diagnosis: respiratory failure This is a 71-year-old male well known to ID service who came in the hospital on September 23 and underwent a JAYDE and heart catheterization showing a ruptured chordae tendonae, mitral regurgitation, moderate pulmonary hypertension , with history of paroxysmal atrial fibrillation and heart failure. 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 With this the patient was initiated to itraconazole. He however developed atrial fibrillation. Because of this he was initiated to amiodarone. The dose of itraconazole was reduced by 50%. There is no evidence of alteration of the QT interval while he was in hospital. He eventually was discharged home. It is related that he was not able to obtain the itraconazole. In this is going to be addressed in the coming days. However he returned to [facility] emergency center due to shortness of breath and was hospitalized October 06 through October 30 at which time he required intubation and mechanical ventilation. He was successfully extubated. He was treated for dehiscence of sternal wires requiring sternal exploration, debridement and wound closure with bilateral pectoralis major myocutaneous advanced flaps. He also required chest tube placement for left pleural effusion and right thoracentesis for right pleural effusion with drainage of 1.5 L of dark red tinged fluid. Muscle flap procedure was done on October 15. Patient was stabilized and then transferred to [facility] for inpatient rehab under the care of Dr. Christina. He developed increasing shortness of breath and edema and was eventually transferred to the intensive care unit where he was found to be in atrial fibrillation with rapid ventricular response and acute systolic heart failure and underwent thoracentesis with removal of 1.6 L on the right chest. Patient was treated in the intensive care unit until a bed was available at [facility] he was a direct transfer. Chest x-ray here shows developing pleural fluid collection along lateral right chest wall. Consults are in place with Dr. Gaffney, cardiovascular surgeon and cardiology. Patient has [address] with one showing some purulence for which a culture to be sent today. Patient has had some mild confusion since admission. He did receive extra dose of Lasix this morning. He has been afebrile. Patient is on heparin drip and amiodarone is oral. For antibiotics, patient is on Zosyn. Echocardiogram reveals EF 40-45%, normally functioning bioprosthetic valve, trace mitral regurgitation, mild tricuspid regurgitation. Sputum culture during his hospitalization of October 06 was positive for Haemophilus influenza and Serratia marcescens susceptible to Zosyn. Continues to show significant improvement. Voice is stronger. Sitting upright. Eating better. Less short of breath. Less sputum production. Working with PT and improving, has been accepted by Dr. Reyes for PMNR at outside hospital Objective - Vital Signs Vital signs: Vital Signs Temp 96.6 F L 11/24/16 15:39 Pulse 112 H 11/24/16 19:54 Resp 16 11/24/16 15:39 BP 97/62 11/24/16 15:39 Pulse Ox 95 11/24/16 15:39 Intake & Output 11/24/16 11/24/16 11/25/16 06:59 18:59 06:59 Intake Total 50 820 Output Total 650 755 Balance -600 65 Weight 106.8 kg Intake: IV 50 100 Piperacillin-Tazobactam 3 50 100 .375 gm In Dextrose/Water 1 50ml.bag @ 12.5 mls/hr IVPB Q8HR [facility] Rx#: [id number] Oral 720 Output: Drainage 155 Left Lateral MEGHAN Drain 10 Medial MEGHAN Drain 130 Right Lateral MEGHAN Drain 15 Urine 650 600 Other: Voiding Method Urinal Urinal # Voids 1 350 # Bowel Movements 0 - Exam This is a 71-year-old male. He appears comfortable lying in ICU bed. He does arouse to verbal stimuli and is able to follow simple commands and answer questions. Cardiac monitors atrial fibrillation with rapid ventricular response. HEENT: Head is atraumatic, normocephalic. Pupils equal, round. Sclerae is anicteric. Conjunctiva slightly pale. Mucous membranes of the mouth are dry. No thrush noted. NECK: Supple. No JVD. No lymphadenopathy. No thyromegaly. LUNGS: improved air exchange No significant bronchial sounds. HEART: Irregular with no murmur Dressing on sternal wound and place. ABDOMEN: Distinctly distended. Bowel sounds are normal. Organomegaly is not detected. Abdomen is nontender. EXTREMITIES: +3 bilateral pedal edema. SCDs in place. NEUROLOGICAL: Awake and alert. No acute gross focal sensory motor deficits except generalized weakness. Vocal quality improved - Labs CBC & Chem 7: 11/24/16 05:33 11/24/16 12:09 Labs: Abnormal Lab Results - Last 24 Hours (Table) 11/23/16 11/24/16 11/24/16 Range/Units 21:14 05:33 05:33 WBC 12.1 H (3.8-10.6) k/uL RBC 3.23 L (4.30-5.90) m/uL Hgb 7.8 L (13.0-17.5) gm/dL Hct 27.0 L (39.0-53.0) % MCH 24.2 L (25.0-35.0) pg MCHC 28.9 L (31.0-37.0) g/dL RDW 18.6 H (11.5-15.5) % Plt Count 547 H (150-450) k/uL Neutrophils # 10.1 H (1.3-7.7) k/uL PT 20.2 H (9.0-12.0) sec Sodium (137-145) mmol/L Potassium (3.5-5.1) mmol/L Chloride (98-107) mmol/L Carbon Dioxide (22-30) mmol/L BUN (9-20) mg/dL Creatinine (0.66-1.25) mg/dL Glucose (74-99) mg/dL POC Glucose (mg/dL) 160 H (75-99) mg/dL Calcium (8.4-10.2) mg/dL 11/24/16 11/24/16 11/24/16 Range/Units 05:33 05:35 11:44 WBC (3.8-10.6) k/uL RBC (4.30-5.90) m/uL Hgb (13.0-17.5) gm/dL Hct (39.0-53.0) % MCH (25.0-35.0) pg MCHC (31.0-37.0) g/dL RDW (11.5-15.5) % Plt Count (150-450) k/uL Neutrophils # (1.3-7.7) k/uL PT (9.0-12.0) sec Sodium 133 L (137-145) mmol/L Potassium 3.3 L (3.5-5.1) mmol/L Chloride 87 L (98-107) mmol/L Carbon Dioxide 35 H (22-30) mmol/L BUN 38 H (9-20) mg/dL Creatinine 1.38 H (0.66-1.25) mg/dL Glucose 110 H (74-99) mg/dL POC Glucose (mg/dL) 123 H 119 H (75-99) mg/dL Calcium 6.8 L (8.4-10.2) mg/dL 11/24/16 Range/Units 17:02 WBC (3.8-10.6) k/uL RBC (4.30-5.90) m/uL Hgb (13.0-17.5) gm/dL Hct (39.0-53.0) % MCH (25.0-35.0) pg MCHC (31.0-37.0) g/dL RDW (11.5-15.5) % Plt Count (150-450) k/uL Neutrophils # (1.3-7.7) k/uL PT (9.0-12.0) sec Sodium (137-145) mmol/L Potassium (3.5-5.1) mmol/L Chloride (98-107) mmol/L Carbon Dioxide (22-30) mmol/L BUN (9-20) mg/dL Creatinine (0.66-1.25) mg/dL Glucose (74-99) mg/dL POC Glucose (mg/dL) 137 H (75-99) mg/dL Calcium (8.4-10.2) mg/dL Laboratory Results WBC 12.1 k/uL (3.8-10.6) H 11/24/16 05:33 RBC 3.23 m/uL (4.30-5.90) L 11/24/16 05:33 Hgb 7.8 gm/dL (13.0-17.5) L 11/24/16 05:33 Hct 27.0 % (39.0-53.0) L 11/24/16 05:33 MCV 83.6 fL (80.0-100.0) D 11/24/16 05:33 MCH 24.2 pg (25.0-35.0) L 11/24/16 05:33 MCHC 28.9 g/dL (31.0-37.0) L 11/24/16 05:33 RDW 18.6 % (11.5-15.5) H 11/24/16 05:33 Plt Count 547 k/uL (150-450) H 11/24/16 05:33 Neutrophils % 83 % 11/24/16 05:33 Neutrophils % (Manual) 81.0 % 11/23/16 06:06 Band Neutrophils % 2.0 % 11/23/16 06:06 Lymphocytes % 9 % 11/24/16 05:33 Lymphocytes % (Manual) 11.0 % 11/23/16 06:06 Monocytes % 5 % 11/24/16 05:33 Monocytes % (Manual) 4.0 % 11/23/16 06:06 Eosinophils % 1 % 11/24/16 05:33 Eosinophils % (Manual) 2.0 % 11/23/16 06:06 Basophils % 0 % 11/24/16 05:33 Neutrophils # 10.1 k/uL (1.3-7.7) H 11/24/16 05:33 Neutrophils # (Manual) 9.9 k/uL (1.3-7.7) H 11/23/16 06:06 Lymphocytes # 1.1 k/uL (1.0-4.8) 11/24/16 05:33 Lymphocytes # (Manual) 1.3 k/uL (1.0-4.8) 11/23/16 06:06 Monocytes # 0.6 k/uL (0-1.0) 11/24/16 05:33 Monocytes # (Manual) 0.5 k/uL (0-1.0) 11/23/16 06:06 Eosinophils # 0.1 k/uL (0-0.7) 11/24/16 05:33 Eosinophils # (Manual) 0.2 k/uL (0-0.7) 11/23/16 06:06 Basophils # 0.0 k/uL (0-0.2) 11/24/16 05:33 Nucleated RBCs 0 /100 WBC (0-0) 11/23/16 06:06 Manual Slide Review Performed 11/23/16 06:06 Large Platelets Present 11/23/16 06:06 Polychromasia Present 11/15/16 04:18 Hypochromasia Marked 11/24/16 05:33 Hypochromasia (manual) Pres 11/15/16 04:18 Poikilocytosis Moderate 11/24/16 05:33 Anisocytosis Slight 11/24/16 05:33 Anisocytosis (manual) Present 11/15/16 04:18 Spherocytes Present 11/15/16 04:18 Target Cells Present 11/23/16 06:06 PT 20.2 sec (9.0-12.0) H 11/24/16 05:33 INR 2.1 (<1.1) 11/24/16 05:33 APTT 30.5 sec (22.0-30.0) H 11/20/16 05:50 Sodium 133 mmol/L (137-145) L 11/24/16 05:33 Potassium 3.9 mmol/L (3.5-5.1) 11/24/16 12:09 Chloride 87 mmol/L (98-107) L 11/24/16 05:33 Carbon Dioxide 35 mmol/L (22-30) H 11/24/16 05:33 Anion Gap 11 mmol/L 11/24/16 05:33 BUN 38 mg/dL (9-20) H 11/24/16 05:33 Creatinine 1.38 mg/dL (0.66-1.25) H 11/24/16 05:33 Est GFR (MDRD) Af Amer >60 (>60 ml/min/1.73 sqM) 11/24/16 05:33 Est GFR (MDRD) Non-Af 51 (>60 ml/min/1.73 sqM) 11/24/16 05:33 Glucose 110 mg/dL (74-99) H 11/24/16 05:33 POC Glucose (mg/dL) 137 mg/dL (75-99) H 11/24/16 17:02 POC Glu Statistical Analyst ID Jenna Chapman 11/24/16 17:[address] Glu mg/dL 103 mg/dL 11/13/16 21:54 Hemoglobin A1c 5.2 % (4.2-6.1) 11/13/16 21:54 Plasma Lactic Acid Samir 1.7 mmol/L (0.7-2.0) 11/16/16 03:39 Calcium 6.8 mg/dL (8.4-10.2) L 11/24/16 05:33 Phosphorus 4.1 mg/dL (2.5-4.5) 11/19/16 04:18 Magnesium 2.3 mg/dL (1.6-2.3) 11/19/16 04:18 Total Bilirubin 1.1 mg/dL (0.2-1.3) 11/21/16 08:33 AST 21 U/L (17-59) 11/21/16 08:33 ALT 27 U/L (21-72) 11/21/16 08:33 Alkaline Phosphatase 87 U/L (38-126) 11/21/16 08:33 NT-Pro-B Natriuret Pep 6900 pg/mL 11/18/16 04:30 Total Protein 6.4 g/dL (6.3-8.2) 11/21/16 08:33 Albumin 2.6 g/dL (3.5-5.0) L 11/21/16 08:33 Free T4 1.58 ng/dL (0.78-2.19) 11/15/16 04:18 Thyroid Stim Immunoglob <0.10 IU/L (<0.10) 11/15/16 04:18 Urine Color Yellow 11/16/16 01:30 Urine Appearance Clear (Clear) 11/16/16 01:30 Urine pH 6.0 (5.0-8.0) 11/16/16 01:30 Ur Specific [place] 1.009 (1.001-1.035) 11/16/16 01:30 Urine Protein Negative (Negative) 11/16/16 01:30 Urine Glucose (UA) Negative (Negative) 11/16/16 01:30 Urine Ketones Negative (Negative) 11/16/16 01:30 Urine Blood Negative (Negative) 11/16/16 01:30 Urine Nitrite Negative (Negative) 11/16/16 01:30 Urine Bilirubin Negative (Negative) 11/16/16 01:30 Urine Urobilinogen <2.0 mg/dL (<2.0) 11/16/16 01:30 Ur Leukocyte Esterase Negative (Negative) 11/16/16 01:30 - Imaging and Cardiology Chest x-ray: report reviewed, image reviewed (Persistence of the bilateral pleural effusions but improving) Assessment and Plan (1) Acute respiratory failure Narrative/Plan: He has not the patient decompensated last evening. He became more tachypneic and tachycardic and her relative hypotension. Also mild increase of his lactic acid. This is almost resolved. He was transferred to the intensive care unit is feeling better. His speech is getting stronger. Was able to self feed his entire dinner without difficulties later in the day. And has no other new acute complaints. Continue supportive care. Current thoracic is following with no plans for any surgical intervention. The patient's MEGHAN drain was cultured and show some Sravani. This colonization of the drain outside of the patient. He does not require any specific therapy. Especially since he is so clinically improved at this point in time. Improving leukocytosis improving fevers improving strength. Not likely to have a deep-seated Sravani infection at this time. Currently receiving Zosyn therapy which is allowed a rapid improvement. Is now completed his course of antibiotic therapy. evaluated by PMNLi Negro will transfer soon to rehab. Status: Acute
[2016-11-24 21:29] LABS: Glucose,Whole Blood 179 mg/dL (75-99)
[2016-11-24] MEDS: ATORVASTATIN 10 MG TAB PO SCH (22:01)
[2016-11-25 06:06] LABS: Glucose,Whole Blood 108 mg/dL (75-99)
[2016-11-25 06:23] VITALS: RESP 18
[2016-11-25 06:38] LABS: Anisocytosis Slight; Basophils % (A) 0 %; CH 24.7; CHCM 29.5; Eosinophils # (A) 0.2 k/uL (0-0.7); Eosinophils % (A) 1 %; HCT 27.1 % (39.0-53.0); HDW 4.34; Hypochromasia Marked; Luc # (Auto) 0.19; Luc % (Auto) 2; Lymphocytes % (A) 8 %; MCH 24.6 pg (25.0-35.0); MCHC 29.5 g/dL (31.0-37.0); MCV 83.3 fL (80.0-100.0); Mean Platelet Volume 6.9; Monocytes # (A) 0.5 k/uL (0-1.0); Monocytes % (A) 5 %; Neutrophils # (A) 9.8 k/uL (1.3-7.7); Neutrophils % (A) 84 %; Poikilocytosis Moderate; RBC 3.25 m/uL (4.30-5.90); RDW 18.8 % (11.5-15.5); WBC 11.7 k/uL (3.8-10.6); WBC (Perox) 12.04
[2016-11-25 06:54] LABS: Anion Gap 8 mmol/L; Blood Urea Nitrogen 41 mg/dL (9-20); Calcium 6.7 mg/dL (8.4-10.2); Carbon Dioxide 38 mmol/L (22-30); Chloride 88 mmol/L (98-107); Glucose 90 mg/dL (74-99); Non-African American GFR(MDRD) 51 (>60 ml/min/1.73 sqM); Potassium 3.3 mmol/L (3.5-5.1); Sodium 134 mmol/L (137-145)
[2016-11-25 06:58] LABS: INR 1.8 (<1.1); Prothrombin Time 17.4 sec (9.0-12.0)
[2016-11-25] MEDS: LEVOTHYROXINE 75 MCG TAB PO SCH (07:08)
[2016-11-25] MEDS: INSULIN LISPRO (humaLOG) 300 UNIT/3 ML VIAL SQ SCH (07:09)
[2016-11-25] MEDS: PANTOPRAZOLE 40 MG TABLET PO SCH (07:09)
[2016-11-25] MEDS ORDERED: POTASSIUM CHLORIDE ER 20 MEQ TAB.ER PO STA (07:58)
--- NOTE | 2016-11-25 08:01 | P.PN ---
Subjective Principal diagnosis: POD #60 aortic valve replacement, mitral valve repair, mediastinal lymph node biopsy. POD #40 muscle flap closure after sternal wound dehiscence. Paroxysmal atrial fibrillation currently treated with amiodarone and Coumadin History of CAD, hyperlipidemia, moderate pulmonary hypertension, acquired hypothyroidism status post thyroid cancer with surgery and radiation, history of right lower extremity DVT Currently sitting up in chair in no apparent distress. Anticipating discharge to [facility] rehab today. Objective - Vital Signs Vital signs: Vital Signs Temp 96.6 F L 11/24/16 15:39 Pulse 111 H 11/25/16 04:00 Resp 18 11/25/16 04:00 BP 92/63 11/25/16 04:00 Pulse Ox 91 L 11/25/16 04:00 Intake & Output 11/24/16 11/25/16 11/25/16 18:59 06:59 18:59 Intake Total 820 170 Output Total 755 300 10 Balance 65 -300 160 Weight 107.5 kg Intake: IV 100 170 0.9 NS 120 Piperacillin-Tazobactam 3 100 50 .375 gm In Dextrose/Water 1 50ml.bag @ 12.5 mls/hr IVPB Q8HR [facility] Rx#: [id number] Oral 720 Output: Drainage 155 0 10 Left Lateral MEGHAN Drain 10 0 0 Medial MEGHAN Drain 130 10 Right Lateral MEGHAN Drain 15 0 Urine 600 300 Other: Voiding Method Urinal # Voids 350 1 # Bowel Movements 0 - Constitutional General appearance: Present: cooperative, no acute distress, obese - Respiratory Details: Lungs sounds diminished bilaterally. Respirations even, nonlabored. Currently on room air with oxygen saturation 91-92%. Still only able to achieve 500 mL on his incentive spirometry. - Cardiovascular Details: S1, S2 present. Irregular, tachycardia rate and rhythm, atrial fibrillation with rapid ventricular response on telemetry. Trace bilateral lower extremity edema still present. Teds/SCDs present. No documented left MEGHAN drainage since yesterday morning. No documented right MEGHAN drainage since 3:30 yesterday afternoon, total of 15 mL yesterday. No documented middle MEGHAN drainage since 3: 30 yesterday afternoon, 130 mL documented yesterday. - Gastrointestinal Gastrointestinal Comment(s): Abdomen soft, nontender, nondistended, obese. Active bowel sounds 4 quadrants. Tolerating diet. - Genitourinary Genitourinary Comment(s): Continues to void - Integumentary Integumentary Comment(s): Anterior chest incision well approximated, covered with dry intact dressing. - Musculoskeletal Musculoskeletal: Present: generalized weakness, strength equal bilaterally - Psychiatric Psychiatric: Present: A&O x's 3, appropriate affect, intact judgment & insight - Allied health notes Allied health notes reviewed: nursing - Labs CBC & Chem 7: 11/25/16 06:02 11/25/16 06:02 Labs: Abnormal Lab Results - Last 24 Hours (Table) 11/24/16 11/24/16 11/24/16 Range/Units 11:44 17:02 21:27 WBC (3.8-10.6) k/uL RBC (4.30-5.90) m/uL Hgb (13.0-17.5) gm/dL Hct (39.0-53.0) % MCH (25.0-35.0) pg MCHC (31.0-37.0) g/dL RDW (11.5-15.5) % Plt Count (150-450) k/uL Neutrophils # (1.3-7.7) k/uL PT (9.0-12.0) sec Sodium (137-145) mmol/L Potassium (3.5-5.1) mmol/L Chloride (98-107) mmol/L Carbon Dioxide (22-30) mmol/L BUN (9-20) mg/dL Creatinine (0.66-1.25) mg/dL POC Glucose (mg/dL) 119 H 137 H 179 H (75-99) mg/dL Calcium (8.4-10.2) mg/dL 11/25/16 11/25/16 11/25/16 Range/Units 06:02 06:02 06:02 WBC 11.7 H (3.8-10.6) k/uL RBC 3.25 L (4.30-5.90) m/uL Hgb 8.0 L (13.0-17.5) gm/dL Hct 27.1 L (39.0-53.0) % MCH 24.6 L (25.0-35.0) pg MCHC 29.5 L (31.0-37.0) g/dL RDW 18.8 H (11.5-15.5) % Plt Count 504 H (150-450) k/uL Neutrophils # 9.8 H (1.3-7.7) k/uL PT 17.4 H (9.0-12.0) sec Sodium 134 L (137-145) mmol/L Potassium 3.3 L (3.5-5.1) mmol/L Chloride 88 L (98-107) mmol/L Carbon Dioxide 38 H (22-30) mmol/L BUN 41 H (9-20) mg/dL Creatinine 1.36 H (0.66-1.25) mg/dL POC Glucose (mg/dL) (75-99) mg/dL Calcium 6.7 L (8.4-10.2) mg/dL 11/25/16 Range/Units 06:04 WBC (3.8-10.6) k/uL RBC (4.30-5.90) m/uL Hgb (13.0-17.5) gm/dL Hct (39.0-53.0) % MCH (25.0-35.0) pg MCHC (31.0-37.0) g/dL RDW (11.5-15.5) % Plt Count (150-450) k/uL Neutrophils # (1.3-7.7) k/uL PT (9.0-12.0) sec Sodium (137-145) mmol/L Potassium (3.5-5.1) mmol/L Chloride (98-107) mmol/L Carbon Dioxide (22-30) mmol/L BUN (9-20) mg/dL Creatinine (0.66-1.25) mg/dL POC Glucose (mg/dL) 108 H (75-99) mg/dL Calcium (8.4-10.2) mg/dL Assessment and Plan (1) Congestive heart failure Status: Acute (2) Hypercholesterolemia Status: Acute (3) Hypertension Status: Acute (4) Hypothyroidism (acquired) Status: Acute (5) Obesity Status: Acute (6) Paroxysmal a-fib Status: Acute (7) Status post aortic valve replacement Status: Acute (8) Status post mitral valve repair Status: Acute (9) History of deep venous thrombosis (DVT) of distal vein of right lower extremity Status: Acute Plan: 1. Continue aspirin, amiodarone, Lopressor, Lasix, Zaroxolyn. 2. Encourage incentive spirometry use. 3. Medical comorbidities to be managed by internal medicine. 4. Encourage increased activity. Physical therapy to follow 5. INR 1.8 this morning. Coumadin dosing to be done per cardiology. Per Dr. Garcia's note, patient will need anticoagulation for 4 weeks and then may be a possible candidate for cardioversion. 6. May discharge to [facility] today from cardiothoracic surgery standpoint. Time with Patient: Greater than 30
[2016-11-25] MEDS: METOPROLOL TARTRATE 25 MG TAB PO SCH (08:05)
[2016-11-25] MEDS: AMIODARONE 200 MG TAB PO SCH (08:05)
[2016-11-25] MEDS: PIPERACILLIN-TAZOBACTAM 3.375 GM in DEXTROSE/WATER 1 50ML.BAG IVPB SCH (08:05)
[2016-11-25] MEDS: METOLAZONE 2.5 MG TAB PO SCH (08:07)
[2016-11-25] MEDS: ASPIRIN 81 MG CHEW PO SCH (08:07)
[2016-11-25] MEDS: FUROSEMIDE 40 MG TAB PO SCH (08:07)
[2016-11-25] MEDS: IPRATROPIUM-ALBUTEROL 3 ML NEB INHALATION SCH ×2 (08:14→11:39)
[2016-11-25 09:39] VITALS: PULSE 120
[2016-11-25 09:40] VITALS: BP 101/64; TEMP 97.4
[2016-11-25 11:46] LABS: Glucose,Whole Blood 126 mg/dL (75-99)
--- NOTE | 2016-11-25 12:36 | P.PN ---
Subjective Principal diagnosis: Pulmonary edema, bilateral effusions, A. fib with RVR This is a 71-year-old gentleman with history of aortic valve replacement, mitral valve repair, CABG, chronic persistent atrial fibrillation, hyperlipidemia, hypothyroidism, mediastinal lymphadenopathy with histoplasmosis , moderate pulmonary hypertension, recurrent pleural effusions with thoracentesis, who presented back to the hospital with pleural effusions. Patient was seen in this morning, continues to be in atrial fibrillation with a heart rate around 100. Blood pressure 100/70 with a heart rate in the low 100s. 93% on room air. Sitting up in a chair, overall states he's feeling much better. Arrangements [facility] being [facility] today. Objective - Vital Signs Vital signs: Vital Signs Temp 97.4 F L 11/25/16 08:00 Pulse 120 H 11/25/16 08:00 Resp 18 11/25/16 08:00 BP 101/64 11/25/16 08:00 Pulse Ox 96 11/25/16 08:00 Intake & Output 11/24/16 11/25/16 11/25/16 18:59 06:59 18:59 Intake Total 820 290 Output Total 755 300 360 Balance 65 -300 -70 Weight 107.5 kg Intake: IV 100 170 0.9 NS 120 Piperacillin-Tazobactam 3 100 50 .375 gm In Dextrose/Water 1 50ml.bag @ 12.5 mls/hr IVPB Q8HR [facility] Rx#: [id number] Oral 720 120 Output: Drainage 155 0 10 Left Lateral MEGHAN Drain 10 0 0 Medial MEGHAN Drain 130 10 Right Lateral MEGHAN Drain 15 0 Urine 600 300 350 Other: Voiding Method Urinal Urinal # Voids 350 1 # Bowel Movements 0 0 - Exam PHYSICAL EXAMINATION: HEENT: Head is atraumatic, normocephalic. Pupils equal, round. Neck is supple. There is no elevated jugular venous pressure. HEART EXAMINATION: Heart S1 and S2 irregularly irregular systolic murmur is heard. Chest wall dressing in place. CHEST EXAMINATION: Lungs reveal diminished breath sounds bilaterally with crackles to the bases. ABDOMEN: Soft, nontender. Bowel sounds are heard. No organomegaly noted. EXTREMITIES: 2+ peripheral pulses with 2+ evidence of peripheral edema and no calf tenderness noted. NEUROLOGIC patient is awake, alert and oriented -3. . - Labs CBC & Chem 7: 11/25/16 06:02 11/25/16 06:02 Labs: Abnormal Lab Results - Last 24 Hours (Table) 11/24/16 11/24/16 11/25/16 Range/Units 17:02 21:27 06:02 WBC (3.8-10.6) k/uL RBC (4.30-5.90) m/uL Hgb (13.0-17.5) gm/dL Hct (39.0-53.0) % MCH (25.0-35.0) pg MCHC (31.0-37.0) g/dL RDW (11.5-15.5) % Plt Count (150-450) k/uL Neutrophils # (1.3-7.7) k/uL PT 17.4 H (9.0-12.0) sec Sodium (137-145) mmol/L Potassium (3.5-5.1) mmol/L Chloride (98-107) mmol/L Carbon Dioxide (22-30) mmol/L BUN (9-20) mg/dL Creatinine (0.66-1.25) mg/dL POC Glucose (mg/dL) 137 H 179 H (75-99) mg/dL Calcium (8.4-10.2) mg/dL 11/25/16 11/25/16 11/25/16 Range/Units 06:02 06:02 06:04 WBC 11.7 H (3.8-10.6) k/uL RBC 3.25 L (4.30-5.90) m/uL Hgb 8.0 L (13.0-17.5) gm/dL Hct 27.1 L (39.0-53.0) % MCH 24.6 L (25.0-35.0) pg MCHC 29.5 L (31.0-37.0) g/dL RDW 18.8 H (11.5-15.5) % Plt Count 504 H (150-450) k/uL Neutrophils # 9.8 H (1.3-7.7) k/uL PT (9.0-12.0) sec Sodium 134 L (137-145) mmol/L Potassium 3.3 L (3.5-5.1) mmol/L Chloride 88 L (98-107) mmol/L Carbon Dioxide 38 H (22-30) mmol/L BUN 41 H (9-20) mg/dL Creatinine 1.36 H (0.66-1.25) mg/dL POC Glucose (mg/dL) 108 H (75-99) mg/dL Calcium 6.7 L (8.4-10.2) mg/dL 11/25/16 Range/Units 11:35 WBC (3.8-10.6) k/uL RBC (4.30-5.90) m/uL Hgb (13.0-17.5) gm/dL Hct (39.0-53.0) % MCH (25.0-35.0) pg MCHC (31.0-37.0) g/dL RDW (11.5-15.5) % Plt Count (150-450) k/uL Neutrophils # (1.3-7.7) k/uL PT (9.0-12.0) sec Sodium (137-145) mmol/L Potassium (3.5-5.1) mmol/L Chloride (98-107) mmol/L Carbon Dioxide (22-30) mmol/L BUN (9-20) mg/dL Creatinine (0.66-1.25) mg/dL POC Glucose (mg/dL) 126 H (75-99) mg/dL Calcium (8.4-10.2) mg/dL Assessment and Plan (1) Diastolic CHF, acute on chronic Status: Acute (2) S/P AVR (aortic valve replacement) Status: Acute (3) S/P MVR (mitral valve repair) Status: Acute (4) Hx of CABG Status: Acute (5) Pleural effusion Status: Acute (6) Chronic a-fib Status: Acute (7) Pulmonary HTN Status: Acute (8) Histoplasmosis Status: Acute (9) Hypothyroid Status: Acute Plan: From cardiology's perspective, we will recommend to continue the amiodarone, along with the metoprolol tartrate 25 mg one tablet by mouth 3 times a day. Continue current dose of by mouth Lasix. Arrangements being made for the patient transferred in patient rehab, we will continue to follow him there. DNP note has been reviewed, I agree with a documented findings and plan of care. Patient was seen and examined.
--- NOTE | 2016-11-28 11:18 | DS ---
DATE OF ADMISSION: 11/13/2016 DATE OF DISCHARGE: 11/25/2016 ADDENDUM: Possibly cardiogenic shock from underlying diastolic dysfunction.
== END 2016-11-25 12:06 | DRG 291 ==
LOC: 6ICU 11-13 19:30 → 6SEL 11-15 10:42 → 6ICU 11-16 02:45 → 6SEL 11-19 16:17
PROVIDERS: ADMIT Hospitalist; ATTEND Hospitalist
DX: I50.43 Acute on chronic combined systolic (congestive) and diastolic (congestive) heart failure (principal); J96.01 Acute respiratory failure with hypoxia; R57.0 Cardiogenic shock; B39.9 Histoplasmosis, unspecified; I27.2 Other secondary pulmonary hypertension; I48.1 Persistent atrial fibrillation; Z68.43 Body mass index [BMI] 50.0-59.9, adult; I47.1 Supraventricular tachycardia; J98.11 Atelectasis; I48.0 Paroxysmal atrial fibrillation; I34.0 Nonrheumatic mitral (valve) insufficiency; E03.9 Hypothyroidism, unspecified; E66.9 Obesity, unspecified; E78.00 Pure hypercholesterolemia, unspecified; E78.5 Hyperlipidemia, unspecified; I25.10 Atherosclerotic heart disease of native coronary artery without angina pectoris; I48.2 Chronic atrial fibrillation; K21.9 Gastro-esophageal reflux disease without esophagitis; M15.9 Polyosteoarthritis, unspecified; Z79.01 Long term (current) use of anticoagulants; Z79.82 Long term (current) use of aspirin; Z79.899 Other long term (current) drug therapy; Z80.0 Family history of malignant neoplasm of digestive organs; Z82.49 Family history of ischemic heart disease and other diseases of the circulatory system; Z85.850 Personal history of malignant neoplasm of thyroid; Z86.718 Personal history of other venous thrombosis and embolism; Z87.891 Personal history of nicotine dependence; Z95.1 Presence of aortocoronary bypass graft; Z95.3 Presence of xenogenic heart valve; Z96.652 Presence of left artificial knee joint
CPT/HCPCS: 71010; 76604; 80048; 80053; 81003; 82040; 83036; 83605; 83735; 83880; 84100; 84132; 84439; 84445; 85025; 85027; 85610; 85730; 87070; 87086; 87205; 93306; 94640; 94760

== ENCOUNTER 2016-12-17 21:37 | Inpatient (IN) | payer MEDICARE, OTHER ==
[2016-12-17] MEDS ORDERED: LEVOFLOXACIN 750MG-D5W PMX 750 MG in DEXTROSE/WATER 1 150ML.BAG IVPB STA (22:27)
[2016-12-17 22:43] LABS: Anisocytosis Slight; Basophils % (A) 0 %; CH 23.1; CHCM 28.6; Eosinophils # (A) 0.1 k/uL (0-0.7); Eosinophils % (A) 1 %; HCT 27.6 % (39.0-53.0); HDW 4.05; HGB 8.3 gm/dL (13.0-17.5); Hypochromasia Marked; Luc # (Auto) 0.19; Luc % (Auto) 2; Lymphocytes # (A) 0.8 k/uL (1.0-4.8); Lymphocytes % (A) 8 %; MCH 24.2 pg (25.0-35.0); MCHC 30.1 g/dL (31.0-37.0); MCV 80.6 fL (80.0-100.0); Mean Platelet Volume 7.2; Microcytosis Slight; Monocytes # (A) 0.5 k/uL (0-1.0); Monocytes % (A) 5 %; Neutrophils # (A) 8.7 k/uL (1.3-7.7); Neutrophils % (A) 84 %; Poikilocytosis Moderate; RBC 3.42 m/uL (4.30-5.90); RDW 18.8 % (11.5-15.5); WBC 10.3 k/uL (3.8-10.6); WBC (Perox) 10.93
[2016-12-17 22:52] LABS: ALT 33 U/L (21-72); AST 37 U/L (17-59); Alkaline Phosphatase 81 U/L (38-126); Anion Gap 11 mmol/L; Blood Urea Nitrogen 32 mg/dL (9-20); Carbon Dioxide 29 mmol/L (22-30); Chloride 100 mmol/L (98-107); Glucose 115 mg/dL (74-99); Magnesium 1.9 mg/dL (1.6-2.3); Non-African American GFR(MDRD) 56 (>60 ml/min/1.73 sqM); Potassium 4.5 mmol/L (3.5-5.1); Sodium 140 mmol/L (137-145); Total Bilirubin 0.7 mg/dL (0.2-1.3); Total Protein 6.3 g/dL (6.3-8.2)
[2016-12-17 23:00] LABS: Calcium 6.3 mg/dL (8.4-10.2)
--- NOTE | 2016-12-17 23:00 | XR ---
EXAM: XR Chest, 1 View CLINICAL HISTORY: Reason: dyspnea TECHNIQUE: Frontal view of the chest. COMPARISON: Chest x-ray 11/23/16 FINDINGS: Stable right basilar opacities and moderate right pleural effusion. Improved aeration of the left lung base and decreased small left pleural effusion. Unchanged cardiomegaly with central pulmonary vascular congestion. IMPRESSION: 1. Unchanged cardiomegaly with central pulmonary vascular congestion. 2. Stable right basilar opacities and moderate-sized right pleural effusion. 3. Decreased small left pleural effusion.
[2016-12-17 23:06] LABS: INR 1.6 (<1.1); Partial Thromboplastin Time 26.4 sec (22.0-30.0); Prothrombin Time 15.3 sec (9.0-12.0)
[2016-12-17 23:18] LABS: Creatine Kinase MB 2.2 ng/mL (0.0-2.4); Troponin I 0.013 ng/mL (0.000-0.034)
[2016-12-17 23:23] LABS: Appearance,Urine Clear (Clear); Bilirubin,Urine Negative (Negative); Glucose,Urine (UA) Negative (Negative); Ketones,Urine Negative (Negative); Leukocyte Esterase,Urine Negative (Negative); Nitrite,Urine Negative (Negative); Protein,Urine Negative (Negative); Specific Gravity,Urine 1.011 (1.001-1.035); UA Billing (MACRO vs. MICRO) CHEM
[2016-12-18] MEDS ORDERED: RX INFO: IV CONTRAST WAS GIVEN 1 EACH MISC MISCELLANE PRN (00:32)
--- NOTE | 2016-12-18 02:12 | CT ---
EXAM: CT Angiography Chest With Intravenous Contrast CLINICAL HISTORY: Reason: R/O PE TECHNIQUE: Axial computed tomographic angiography images of the chest with intravenous contrast using pulmonary embolism protocol. Coronal and sagittal reformats were obtained. CTDI is 186.80 MGy and DLP is 832.90 MGy-cm. This CT exam was performed using one or more of the following dose reduction techniques: automated exposure control, adjustment of the mA and/or kV according to patient size, and/or use of iterative reconstruction technique. MIP reconstructed images were created and reviewed. COMPARISON: Chest x-ray 12/16/16. FINDINGS: Pulmonary arteries: Acute pulmonary emboli in left lower lobe subsegmental pulmonary arteries (For example ). Posterior right upper lobe segmental pulmonary embolus, possibly chronic (). Slight flattening of the intraventricular septum may represent right heart strain Aorta: No acute findings. No thoracic aortic aneurysm. Lungs: Mild intralobular septal thickening and patchy groundglass opacities, likely pulmonary edema. Correlate for superimposed pneumonia. Moderate right and small left pleural effusions with adjacent opacities, likely atelectasis but correlate for pneumonia. Centrilobular emphysema. Pleural space: See above. Heart: Mild cardiomegaly. Mitral and aortic valve replacements. Calcified atherosclerosis of the coronary arteries. No significant pericardial effusion. . See above. Mediastinum: Vertically oriented separation of the sternum with approximately 4 cm of distraction with associated large fluid/soft tissue density extending in the anterior chest wall and anterior mediastinum. Differential considerations include postsurgical change versus infection. Underlying mass is less likely. Bones/joints: See above. Lymph nodes: Unremarkable. No enlarged lymph nodes. Gallbladder and bile ducts: Cholelithiasis. IMPRESSION: 1. Acute pulmonary emboli in left lower lobe subsegmental pulmonary arteries. Posterior right upper lobe segmental pulmonary embolus, possibly chronic. Slight flattening of the intraventricular septum may represent right heart strain. 2. Vertically oriented separation of the sternum with approximately 4 cm of distraction with associated large fluid/soft tissue density extending in the anterior chest wall and anterior mediastinum. Differential considerations include postsurgical scarring versus hematoma versus infection. Underlying mass is less likely. Comparison with priors would be helpful for available. 3. Mild intralobular septal thickening and patchy groundglass opacities, likely pulmonary edema. Correlate for superimposed pneumonia. 4. Moderate right and small left pleural effusions with adjacent opacities, likely atelectasis but correlate for pneumonia. [employer] 12/18/16 02:16 Call Doctor Regarding Pulmonary Embolism, called Dr. Duff on 12/18 02:15 (-04:00)
[2016-12-18] MEDS ORDERED: HEPARIN SODIUM,PORCINE 5,000 UNIT/ML 1 ML VIAL IV PRN (02:18)
[2016-12-18] MEDS ORDERED: HEPARIN SODIUM,PORCINE 5,000 UNIT/ML 1 ML VIAL IV ONE (02:18)
[2016-12-18] MEDS: HEPARIN SODIUM,PORCINE/D5W PMX 25,000 UNIT in DEXTROSE/WATER 1 500ML.BAG IV SCH ×2 (02:30→15:12)
--- NOTE | 2016-12-18 02:33 | US ---
EXAM: US Duplex Bilateral Lower Extremity Veins CLINICAL HISTORY: Reason: Pain TECHNIQUE: Real-time ultrasound scan of the veins of the bilateral lower extremities with color Doppler flow, spectral waveform analysis and compression. COMPARISON: No relevant prior studies available. FINDINGS: Exam limited by lower extremity edema and patient discomfort with compressions. Right deep veins: No DVT in the right common femoral, femoral, proximal deep femoral or popliteal veins. The veins are compressible with normal color flow and augmentation. Right superficial veins: Unremarkable. No thrombus in the visualized right great saphenous vein. Left deep veins: No DVT in the left common femoral, femoral, proximal deep femoral or popliteal veins. The veins are compressible with normal color flow and augmentation. Left superficial veins: Unremarkable. No thrombus in the visualized left great saphenous vein. IMPRESSION: No evidence of deep venous thrombosis in the lower extremities.
[2016-12-18] MEDS ORDERED: ACETAMINOPHEN TAB 325 MG TAB PO PRN (02:40)
[2016-12-18] MEDS ORDERED: NALOXONE 0.4 MG/ML 1 ML VIAL IV PRN (02:40)
[2016-12-18] MEDS ORDERED: ONDANSETRON 4 MG/2 ML VIAL IVP PRN (02:40)
[2016-12-18] MEDS ORDERED: HYDROcodone/APAP 10-325MG 1 EACH TAB PO PRN (02:42)
[2016-12-18] MEDS ORDERED: SENNOSIDES 8.6 MG TAB PO PRN (02:42)
[2016-12-18] MEDS ORDERED: IV VANCOMYCIN PER PHARMACY 1 EACH MISC MISCELLANE PRN (02:44)
--- NOTE | 2016-12-18 02:47 | ED ---
SOB HPI - General Chief Complaint: Shortness of Breath Stated Complaint: SOB Time Seen by Provider: 12/17/16 21:41 Source: patient, family (), EMS Mode of arrival: EMS Limitations: no limitations, altered mental status - History of Present Illness Initial Comments: Patient 71-year-old man who does have history of previous congestive heart failure as well as COPD. He is noted to be more short of breath than had been noted previously. He is transferred here to be seen. Patient denies fevers or chills but has had occasional cough. He is denying venancio chest pain MD Complaint: shortness of breath -: days(s) (1) Consistency: constant Improves With: oxygen Worsens With: nothing Known History Of: COPD, congestive heart failure Associated Symptoms: denies other symptoms Treatments Prior to Arrival: oxygen - Related Data Home Medications Medication Instructions Recorded Confirmed Aspirin 81 mg PO HS 11/14/14 12/17/16 Multivitamins, Thera [Multivitamin 1 tab PO HS 10/06/16 12/17/16 (formulary)] Acetaminophen Tab [Tylenol Tab] 650 mg PO Q4H PRN 12/17/16 12/17/16 Atorvastatin Calcium [Lipitor] 10 mg PO HS@199912/17/16 12/17/16 Digoxin [Lanoxin] 125 mcg PO Q48H 12/17/16 12/17/16 Furosemide [Lasix] 40 mg PO BID 12/17/16 12/17/16 HYDROcodone/APAP 10-325MG [Andes 1 tab PO Q4HR PRN 12/17/16 12/17/16 10-325] Ipratropium-Albuterol Nebulize 3 ml INHALATION RT-Q8H 12/17/16 12/17/16 [Duoneb 0.5 mg-3 mg/3 ml Soln] LORazepam [Ativan] 0.25 mg PO Q6H PRN 12/17/16 12/17/16 Levothyroxine Sodium [Synthroid] 175 mcg PO DAILY@0500 12/17/16 12/17/16 Melatonin 3 mg PO HS@199912/17/16 12/17/16 Metoprolol Tartrate [Lopressor] 25 mg PO TID@0700,1300,1900 12/17/16 12/17/16 Minerin Lotion(Emollient) 1 applic TOPICAL BID@0500,199912/17/16 12/17/16 Sennosides [Senna] 8.6 mg PO BID PRN 12/17/16 12/17/16 Sulfamethox-Tmp 800-160Mg [Bactrim 1 tab PO BID 12/17/16 12/17/16 DS 800-160 mg] Warfarin [Coumadin] 1 mg PO HS 12/17/16 12/17/16 Warfarin [Coumadin] 2.5 mg PO HS 12/17/16 12/17/16 Previous Rx's Medication Instructions Recorded Pantoprazole [Protonix] 40 mg PO [id number] tablet. 10/29/16 Amiodarone [Cordarone] 400 mg PO DAILY #30 tab 11/24/16 Allergies Allergy/AdvReac Type Severity Reaction Status Date / Time No Known Allergies Allergy Verified 12/17/16 22:18 Review of Systems ROS Statement: Those systems with pertinent positive or pertinent negative responses have been documented in the HPI. ROS Other: All systems not noted in ROS Statement are negative. Limitations: ROS unobtainable due to patients medical condition Constitutional: Reports: chills. Denies: fever Respiratory: Reports: cough, dyspnea. Denies: hemoptysis Cardiovascular: Denies: chest pain, palpitations, edema, syncope Gastrointestinal: Denies: abdominal pain, nausea, vomiting Musculoskeletal: Denies: back pain Past Medical History Past Medical History: Atrial Fibrillation, Cancer, Heart Failure, Hyperlipidemia , Osteoarthritis (OA), Thyroid Disorder Additional Past Medical History / Comment(s): Current mediastinal lymphadenopathy with histoplasmosis being tx with ABX by Dr. Ramos, THYROID CANCER with surgery/radiation, varicose veins, rheumatic fever, paroxysmal atrial fibrillation, aortic valve insufficiency and mitral valve regurgitation- recent valvular surgery, moderate pulmonary hypertension History of Any Multi-Drug Resistant Organisms: None Reported Past Surgical History: Cardiac Valve Replacement, Heart Catheterization, Joint Replacement Additional Past Surgical History / Comment(s): thyroidectomy, total left knee replacement, 08/2016cardiac cath/fabiola, 09/29/16 aortic valve replacement with bovine valve, mitral valve repair, mediastinal lymph node biopsy, colonoscopies/ polypectomy-benign. Past Anesthesia/Blood Transfusion Reactions: No Reported Reaction Past Psychological History: No Psychological Hx Reported Smoking Status: Former smoker Past Alcohol Use History: Rare Past Drug Use History: None Reported - Past Family History Father Family Medical History: Coronary Artery Disease (CAD) Additional Family Medical History / Comment(s): Father at 76yrs from heart problems. Mother Family Medical History: No Reported History Additional Family Medical History / Comment(s): Mother at the age of 92 yrs. She had varicose veins Brother(s) Family Medical History: Cancer Additional Family Medical History / Comment(s): LIVER CA. BLOOD CLOT. General Exam Limitations: no limitations General appearance: alert, in distress (Patient is in mild respiratory distress) Head exam: Present: atraumatic, normocephalic Eye exam: Present: normal appearance. Absent: scleral icterus, conjunctival injection ENT exam: Present: normal oropharynx Neck exam: Present: normal inspection, full ROM Respiratory exam: Present: respiratory distress (Mild tachypnea), rales ( Bilateral bases), rhonchi. Absent: wheezes, stridor, chest wall tenderness Cardiovascular Exam: Present: regular rate, normal rhythm, normal heart sounds. Absent: systolic murmur, diastolic murmur, rubs, gallop GI/Abdominal exam: Present: soft. Absent: distended, tenderness, guarding, rebound, rigid Extremities exam: Present: normal inspection, normal capillary refill. Absent: pedal edema, calf tenderness Back exam: Absent: CVA tenderness (R), CVA tenderness (L) Neurological exam: Present: alert. Absent: oriented X3 (Patient is oriented to person and place but could not state the date.), motor sensory deficit Psychiatric exam: Present: anxious Skin exam: Present: warm, dry, intact, normal color. Absent: rash Course Vital Signs 12/17/16 12/17/16 12/17/16 21:39 21:58 22:45 Temperature 94.7 F L Pulse Rate 83 79 Respiratory 18 24 22 Rate Blood Pressure 87/57 107/58 O2 Sat by Pulse 94 L 97 Oximetry 12/18/16 12/18/16 00:43 02:37 Temperature 98.1 F Pulse Rate 80 82 Respiratory 13 18 Rate Blood Pressure 116/69 126/60 O2 Sat by Pulse 96 96 Oximetry Medical Decision Making - Lab Data Result diagrams: 12/18/16 06:44 12/17/16 21:37 Lab Results 06/23/17 06/23/17 06/23/17 Range/Units 21:37 21:37 21:37 WBC 10.3 (3.8-10.6) k/uL RBC 3.42 L (4.30-5.90) m/uL Hgb 8.3 L (13.0-17.5) gm/dL Hct 27.6 L (39.0-53.0) % MCV 80.6 (80.0-100.0) fL MCH 24.2 L (25.0-35.0) pg MCHC 30.1 L (31.0-37.0) g/dL RDW 18.8 H (11.5-15.5) % Plt Count 376 (150-450) k/uL Neutrophils % 84 % Lymphocytes % 8 % Monocytes % 5 % Eosinophils % 1 % Basophils % 0 % Neutrophils # 8.7 H (1.3-7.7) k/uL Lymphocytes # 0.8 L (1.0-4.8) k/uL Monocytes # 0.5 (0-1.0) k/uL Eosinophils # 0.1 (0-0.7) k/uL Basophils # 0.0 (0-0.2) k/uL Hypochromasia Marked Poikilocytosis Moderate Anisocytosis Slight Microcytosis Slight PT (9.0-12.0) sec INR (<1.1) APTT (22.0-30.0) sec D-Dimer (<0.60) mg/L FEU Sodium 140 (137-145) mmol/L Potassium 4.5 (3.5-5.1) mmol/L Chloride 100 (98-107) mmol/L Carbon Dioxide 29 (22-30) mmol/L Anion Gap 11 mmol/L BUN 32 H (9-20) mg/dL Creatinine 1.26 H (0.66-1.25) mg/dL Est GFR (MDRD) Af Amer >60 (>60 ml/min/1.73 sqM) Est GFR (MDRD) Non-Af 56 (>60 ml/min/1.73 sqM) Glucose 115 H (74-99) mg/dL Plasma Lactic Acid Samir (0.7-2.0) mmol/L Calcium 6.3 L* (8.4-10.2) mg/dL Magnesium 1.9 (1.6-2.3) mg/dL Total Bilirubin 0.7 (0.2-1.3) mg/dL AST 37 (17-59) U/L ALT 33 (21-72) U/L Alkaline Phosphatase 81 (38-126) U/L Total Creatine Kinase 42 L (55-170) U/L CK-MB (CK-2) 2.2 (0.0-2.4) ng/mL CK-MB (CK-2) Rel Index 5.2 Troponin I 0.013 (0.000-0.034) ng/mL NT-Pro-B Natriuret Pep pg/mL Total Protein 6.3 (6.3-8.2) g/dL Albumin 2.4 L (3.5-5.0) g/dL Urine Color Urine Appearance (Clear) Urine pH (5.0-8.0) Ur Specific [place] (1.001-1.035) Urine Protein (Negative) Urine Glucose (UA) (Negative) Urine Ketones (Negative) Urine Blood (Negative) Urine Nitrite (Negative) Urine Bilirubin (Negative) Urine Urobilinogen (<2.0) mg/dL Ur Leukocyte Esterase (Negative) 12/17/16 12/17/16 12/17/16 Range/Units 21:37 21:37 21:37 WBC (3.8-10.6) k/uL RBC (4.30-5.90) m/uL Hgb (13.0-17.5) gm/dL Hct (39.0-53.0) % MCV (80.0-100.0) fL MCH (25.0-35.0) pg MCHC (31.0-37.0) g/dL RDW (11.5-15.5) % Plt Count (150-450) k/uL Neutrophils % % Lymphocytes % % Monocytes % % Eosinophils % % Basophils % % Neutrophils # (1.3-7.7) k/uL Lymphocytes # (1.0-4.8) k/uL Monocytes # (0-1.0) k/uL Eosinophils # (0-0.7) k/uL Basophils # (0-0.2) k/uL Hypochromasia Poikilocytosis Anisocytosis Microcytosis PT 15.3 H (9.0-12.0) sec INR 1.6 (<1.1) APTT 26.4 (22.0-30.0) sec D-Dimer 8.41 H (<0.60) mg/L FEU Sodium (137-145) mmol/L Potassium (3.5-5.1) mmol/L Chloride (98-107) mmol/L Carbon Dioxide (22-30) mmol/L Anion Gap mmol/L BUN (9-20) mg/dL Creatinine (0.66-1.25) mg/dL Est GFR (MDRD) Af Amer (>60 ml/min/1.73 sqM) Est GFR (MDRD) Non-Af (>60 ml/min/1.73 sqM) Glucose (74-99) mg/dL Plasma Lactic Acid Samir 2.5 H* (0.7-2.0) mmol/L Calcium (8.4-10.2) mg/dL Magnesium (1.6-2.3) mg/dL Total Bilirubin (0.2-1.3) mg/dL AST (17-59) U/L ALT (21-72) U/L Alkaline Phosphatase (38-126) U/L Total Creatine Kinase (55-170) U/L CK-MB (CK-2) (0.0-2.4) ng/mL CK-MB (CK-2) Rel Index Troponin I (0.000-0.034) ng/mL NT-Pro-B Natriuret Pep 4950 pg/mL Total Protein (6.3-8.2) g/dL Albumin (3.5-5.0) g/dL Urine Color Urine Appearance (Clear) Urine pH (5.0-8.0) Ur Specific [place] (1.001-1.035) Urine Protein (Negative) Urine Glucose (UA) (Negative) Urine Ketones (Negative) Urine Blood (Negative) Urine Nitrite (Negative) Urine Bilirubin (Negative) Urine Urobilinogen (<2.0) mg/dL Ur Leukocyte Esterase (Negative) 12/17/16 Range/Units 23:00 WBC (3.8-10.6) k/uL RBC (4.30-5.90) m/uL Hgb (13.0-17.5) gm/dL Hct (39.0-53.0) % MCV (80.0-100.0) fL MCH (25.0-35.0) pg MCHC (31.0-37.0) g/dL RDW (11.5-15.5) % Plt Count (150-450) k/uL Neutrophils % % Lymphocytes % % Monocytes % % Eosinophils % % Basophils % % Neutrophils # (1.3-7.7) k/uL Lymphocytes # (1.0-4.8) k/uL Monocytes # (0-1.0) k/uL Eosinophils # (0-0.7) k/uL Basophils # (0-0.2) k/uL Hypochromasia Poikilocytosis Anisocytosis Microcytosis PT (9.0-12.0) sec INR (<1.1) APTT (22.0-30.0) sec D-Dimer (<0.60) mg/L FEU Sodium (137-145) mmol/L Potassium (3.5-5.1) mmol/L Chloride (98-107) mmol/L Carbon Dioxide (22-30) mmol/L Anion Gap mmol/L BUN (9-20) mg/dL Creatinine (0.66-1.25) mg/dL Est GFR (MDRD) Af Amer (>60 ml/min/1.73 sqM) Est GFR (MDRD) Non-Af (>60 ml/min/1.73 sqM) Glucose (74-99) mg/dL Plasma Lactic Acid Samir (0.7-2.0) mmol/L Calcium (8.4-10.2) mg/dL Magnesium (1.6-2.3) mg/dL Total Bilirubin (0.2-1.3) mg/dL AST (17-59) U/L ALT (21-72) U/L Alkaline Phosphatase (38-126) U/L Total Creatine Kinase (55-170) U/L CK-MB (CK-2) (0.0-2.4) ng/mL CK-MB (CK-2) Rel Index Troponin I (0.000-0.034) ng/mL NT-Pro-B Natriuret Pep pg/mL Total Protein (6.3-8.2) g/dL Albumin (3.5-5.0) g/dL Urine Color Yellow Urine Appearance Clear (Clear) Urine pH 6.0 (5.0-8.0) Ur Specific [place] 1.011 (1.001-1.035) Urine Protein Negative (Negative) Urine Glucose (UA) Negative (Negative) Urine Ketones Negative (Negative) Urine Blood Negative (Negative) Urine Nitrite Negative (Negative) Urine Bilirubin Negative (Negative) Urine Urobilinogen 3.0 (<2.0) mg/dL Ur Leukocyte Esterase Negative (Negative) - EKG Data -: EKG Interpreted by Pr EKG shows normal: sinus rhythm, axis (Normal), intervals (VT interval is prolonged at 234 ms, consistent with a first-degree AV block. The QRS duration is 138 ms and consistent with right bundle-branch block. QT normal), QRS complexes (Right bundle-branch block morphology), ST-T waves (Normal) Rate: normal (Rate 82 bpm) Disposition Clinical Impression: Pulmonary embolism, Cellulitis, Acute renal failure, Anemia, Hypocalcemia Disposition: ADMITTED IP TO THIS [facility] Condition: Poor
[2016-12-18] MEDS ORDERED: VANCOMYCIN 2,250 MG in SODIUM CHLORIDE 0.9% 500 ML IVPB ONE (03:30)
[2016-12-18] MEDS: LEVOTHYROXINE 75 MCG TAB PO SCH (05:51)
[2016-12-18] MEDS: MINERAL OIL-WHITE PETROLATUM 120 GM JAR TOPICAL SCH ×2 (05:51→21:15)
[2016-12-18] MEDS: LEVOTHYROXINE 100 MCG TAB PO SCH (05:51)
[2016-12-18] MEDS: PANTOPRAZOLE 40 MG TABLET PO SCH (06:56)
[2016-12-18] MEDS: METOPROLOL TARTRATE 25 MG TAB PO SCH ×3 (06:56→21:05)
[2016-12-18 07:05] LABS: Anisocytosis Slight; Basophils % (A) 0 %; CH 23.3; CHCM 28.3; Eosinophils # (A) 0.1 k/uL (0-0.7); Eosinophils % (A) 1 %; HCT 28.9 % (39.0-53.0); HDW 3.99; HGB 8.3 gm/dL (13.0-17.5); Hypochromasia Marked; Luc # (Auto) 0.14; Luc % (Auto) 2; Lymphocytes # (A) 0.9 k/uL (1.0-4.8); Lymphocytes % (A) 9 %; MCH 23.5 pg (25.0-35.0); MCHC 28.8 g/dL (31.0-37.0); MCV 81.7 fL (80.0-100.0); Mean Platelet Volume 6.6; Microcytosis Slight; Monocytes # (A) 0.5 k/uL (0-1.0); Monocytes % (A) 5 %; Neutrophils # (A) 7.9 k/uL (1.3-7.7); Neutrophils % (A) 83 %; Poikilocytosis Slight; RBC 3.54 m/uL (4.30-5.90); RDW 18.6 % (11.5-15.5); WBC 9.6 k/uL (3.8-10.6); WBC (Perox) 10.57
[2016-12-18 07:20] LABS: INR 1.7 (<1.1); Prothrombin Time 16.6 sec (9.0-12.0)
[2016-12-18] MEDS: IPRATROPIUM-ALBUTEROL 3 ML NEB INHALATION SCH ×2 (08:22→16:01)
[2016-12-18] MEDS ORDERED: FUROSEMIDE 40 MG TAB PO SCH (09:00)
[2016-12-18] MEDS ORDERED: SULFAMETHOX-TMP 800-160MG 1 EACH TAB PO SCH (09:00)
[2016-12-18] MEDS: AMIODARONE 200 MG TAB PO SCH (09:33)
[2016-12-18] MEDS: FAMOTIDINE 20 MG TAB PO SCH ×2 (09:33→21:07)
[2016-12-18] MEDS: LORazepam 0.5 MG TAB PO PRN (10:15)
[2016-12-18] MEDS ORDERED: FUROSEMIDE 10 MG/ML 4 ML VIAL IV STA (11:53)
[2016-12-18] MEDS: IPRATROPIUM-ALBUTEROL 3 ML NEB INHALATION PRN ×3 (11:59→23:26)
--- NOTE | 2016-12-18 12:06 | P.CNPUL ---
History of Present Illness Consult date: 12/18/16 Requesting physician: Temo Page Reason for consult: dyspnea Chief complaint: Shortness of breath History of present illness: This is a very pleasant 71-year-old gentleman with a history of pulmonary hypertension, paroxysmal atrial fibrillation anticoagulated with warfarin, ruptured chordae tendon he was severe mitral regurgitation and aortic valve disease. 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 The patient had subsequently been discharged from that hospitalization and returned with increasing shortness of breath and significant congestive heart failure. He also had a sternal wound dehiscence that Dr. Riggs had repaired with a sternal exploration and debridement and wound closure with bilateral pectoralis muscle flaps. From that hospitalization he was transferred to [facility] inpatient rehabilitation with Dr. Christina. While there he again developed recurrent pleural effusion and congestive heart failure requiring repeated thoracentesis as well. MEGHAN drain fluid was positive for PA fail as influenza and Serratia marcescens. He was transferred back here 11/13/2016 for continuation of care. Again subsequently discharged to [facility] and was doing fairly well. He really presented here to the emergency room yesterday with complaints of increasing shortness of breath. His chest x-ray showed unchanged cardiomegaly with central pulmonary vascular congestion and a stable right basilar opacity a moderate sized right pleural effusion. There is decreased left pleural effusion compared to previous x-ray 11/23/2016. A CT angiogram revealed an acute pulmonary emboli in the left lower lobe subsegmental pulmonary arteries. There is posterior right upper lobe segmental pulmonary embolus, possibly chronic. There is slight flattening of the intraventricular septum that may represent right heart strain. Again noted moderate right and small left pleural effusions with adjacent opacities suspicious for pneumonia. He did have significant lower extremity edema with cellulitis however venous Dopplers revealed no DVTs. The patient is seen today in consultation on the selective care unit. He is currently awake and alert in no acute distress. He is resting fairly comfortably in bed. He is maintaining O2 saturations in the 90s on 3 L/m per nasal cannula. No leukocytosis, hemoglobin 8.3, INR 1.7, proBNP 4950. Initial lactic 2.5, currently 1.2. He denies any worsening shortness of breath, he is doing better today as compared to yesterday but still dyspneic on minimal exertion. He denies any productive cough or congestion. Review of Systems 14 point review of systems was conducted. All negative other than as mentioned in HPI. Past Medical History Past Medical History: Atrial Fibrillation, Cancer, Heart Failure, Hyperlipidemia , Osteoarthritis (OA), Thyroid Disorder Additional Past Medical History / Comment(s): Current mediastinal lymphadenopathy with histoplasmosis being tx with ABX by Dr. Ramos, THYROID CANCER with surgery/radiation, varicose veins, rheumatic fever, paroxysmal atrial fibrillation, aortic valve insufficiency and mitral valve regurgitation- recent valvular surgery, moderate pulmonary hypertension History of Any Multi-Drug Resistant Organisms: None Reported Past Surgical History: Cardiac Valve Replacement, Heart Catheterization, Joint Replacement Additional Past Surgical History / Comment(s): thyroidectomy, total left knee replacement, 08/2016cardiac cath/fabiola, 09/29/16 aortic valve replacement with bovine valve, mitral valve repair, mediastinal lymph node biopsy, colonoscopies/ polypectomy-benign. Past Anesthesia/Blood Transfusion Reactions: No Reported Reaction Past Psychological History: No Psychological Hx Reported Smoking Status: Former smoker Past Alcohol Use History: Rare Past Drug Use History: None Reported - Past Family History Father Family Medical History: Coronary Artery Disease (CAD) Additional Family Medical History / Comment(s): Father at 76yrs from heart problems. Mother Family Medical History: No Reported History Additional Family Medical History / Comment(s): Mother at the age of 92 yrs. She had varicose veins Brother(s) Family Medical History: Cancer Additional Family Medical History / Comment(s): LIVER CA. BLOOD CLOT. Medications and Allergies Home Medications Medication Instructions Recorded Confirmed Type Aspirin 81 mg PO HS 11/14/14 12/17/16 History Multivitamins, Thera [Multivitamin 1 tab PO HS 10/06/16 12/17/16 History (formulary)] Acetaminophen Tab [Tylenol Tab] 650 mg PO Q4H PRN 12/17/16 12/17/16 History Atorvastatin Calcium [Lipitor] 10 mg PO HS@199912/17/16 12/17/16 History Digoxin [Lanoxin] 125 mcg PO Q48H 12/17/16 12/17/16 History Furosemide [Lasix] 40 mg PO BID 12/17/16 12/17/16 History HYDROcodone/APAP 10-325MG [[place] 1 tab PO Q4HR PRN 12/17/16 12/17/16 History 10-325] Ipratropium-Albuterol Nebulize 3 ml INHALATION RT-Q8H 12/17/16 12/17/16 History [Duoneb 0.5 mg-3 mg/3 ml Soln] LORazepam [Ativan] 0.25 mg PO Q6H PRN 12/17/16 12/17/16 History Levothyroxine Sodium [Synthroid] 175 mcg PO DAILY@0500 12/17/16 12/17/16 History Melatonin 3 mg PO HS@199912/17/16 12/17/16 History Metoprolol Tartrate [Lopressor] 25 mg PO TID@0700,1300,1900 12/17/16 12/17/16 History Minerin Lotion(Emollient) 1 applic TOPICAL BID@499,199912/17/16 12/17/16 History Sennosides [Senna] 8.6 mg PO BID PRN 12/17/16 12/17/16 History Sulfamethox-Tmp 800-160Mg [Bactrim 1 tab PO BID 12/17/16 12/17/16 History DS 800-160 mg] Warfarin [Coumadin] 1 mg PO HS 12/17/16 12/17/16 History Warfarin [Coumadin] 2.5 mg PO HS 12/17/16 12/17/16 History Allergies Allergy/AdvReac Type Severity Reaction Status Date / Time No Known Allergies Allergy Verified 12/17/16 22:18 Physical Exam Vitals: Vital Signs Temp Pulse Pulse Resp BP BP Pulse Ox 12/18/16 10:55 80 18 105/61 92 L 12/18/16 08:24 88 93 L 12/18/16 08:00 97.0 F L 82 22 118/73 95 12/18/16 04:00 18 12/18/16 03:44 96.8 F L 12/18/16 03:16 97.1 F L 90 20 122/55 93 L 12/18/16 02:37 82 18 126/60 96 12/18/16 00:43 98.1 F 80 13 116/69 96 12/17/16 22:45 79 22 107/58 97 12/17/16 21:58 24 12/17/16 21:39 94.7 F L 83 18 87/57 94 L Intake and Output 12/17/16 12/18/16 12/18/16 22:59 06:59 14:59 Intake Total 122 251.723 Balance 122 251.723 Intake: IV 122 Heparin Sodium,Porcine/ 122 D5w Pmx 25,000 unit In Dextrose/Water 1 500ml. bag @ 18 UNITS/KG/HR 40. 82 mls/hr IV .[id number] STEVAN Rx#:[id number] Intake, IV Titration 251.723 Amount Heparin Sodium,Porcine/ 251.723 D5w Pmx 25,000 unit In Dextrose/Water 1 500ml. bag @ 18 UNITS/KG/HR 40. 82 mls/hr IV .[id number] STEVAN Rx#:[id number] Other: Voiding Method Urinal Diaper # Voids 1 Weight 113.398 kg 115.2 kg GENERAL EXAM: Morbidly obese. Alert, active, comfortable in no apparent distress. HEAD: Normocephalic. EYES: Normal reaction of pupils, equal size. NOSE: Clear with pink turbinates. THROAT: No erythema or exudates. NECK: No masses, no JVD. CHEST: Excessive soft tissue noted at the sternum from previous sternal dehiscence and repair. LUNGS: Equal air entry with bibasilar crackles, few scattered rhonchi. CVS: S1 and S2 normal with no audible murmurs, regular rhythm. ABDOMEN: No hepatosplenomegaly, normal bowel sounds, no guarding or rigidity. SPINE: No scoliosis or deformity SKIN: Redness and warmth bilateral lower extremities with edema NERVOUS SYSTEM: No focal deficits, tone is normal in all 4 extremities. Extremities: There is 2-3+ lower extremity edema with redness and warmth. Peripheral pulses are intact. Results - Laboratory Findings CBC and BMP: 12/18/16 06:44 12/17/16 21:37 PT/INR, D-dimer PT 16.6 sec (9.0-12.0) H 12/18/16 06:44 INR 1.7 (<1.1) 12/18/16 06:44 D-Dimer 8.41 mg/L FEU (<0.60) H 12/17/16 21:37 Abnormal lab findings: Abnormal Labs 12/17/16 12/17/16 12/17/16 21:37 21:37 21:37 RBC 3.42 L Hgb 8.3 L Hct 27.6 L MCH 24.2 L MCHC 30.1 L RDW 18.8 H Neutrophils # 8.7 H Lymphocytes # 0.8 L PT APTT D-Dimer BUN 32 H Creatinine 1.26 H Glucose 115 H Plasma Lactic Acid Samir Calcium 6.3 L* Total Creatine Kinase 42 L Albumin 2.4 L 12/17/16 12/17/16 12/18/16 21:37 21:37 06:44 RBC 3.54 L Hgb 8.3 L Hct 28.9 L MCH 23.5 L MCHC 28.8 L RDW 18.6 H Neutrophils # 7.9 H Lymphocytes # 0.9 L PT 15.3 H APTT D-Dimer 8.41 H BUN Creatinine Glucose Plasma Lactic Acid Samir 2.5 H* Calcium Total Creatine Kinase Albumin 12/18/16 06:44 RBC Hgb Hct MCH MCHC RDW Neutrophils # Lymphocytes # PT 16.6 H APTT 133.0 H* D-Dimer BUN Creatinine Glucose Plasma Lactic Acid Samir Calcium Total Creatine Kinase Albumin - Diagnostic Findings Chest x-ray: image reviewed CT scan - chest: image reviewed Assessment and Plan Plan: Impression: #1 Acute hypoxic respiratory failure, multifactorial secondary to acute pulmonary emboli, acute exacerbation of chronic systolic congestive heart failure, bilateral pleural effusions. #2 Recent aortic valve replacement with bovine valve and mitral valve repair with mediastinal lymph node biopsy. #3 Histoplasmosis. #4 Sternal dehiscence requiring sternal exploration and debridement with wound closure with bilateral pectoralis muscle flaps. #5 Pulmonary hypertension. #6 Paroxysmal atrial fibrillation, anticoagulated with warfarin. #7 Hyperlipidemia. #8 Osteoarthritis. #9 History of thyroid cancer status post surgery/radiation. #10 Overall poor functional performance secondary to the above-mentioned multiple comorbidities and extended inpatient stays and rehabilitation. Plan: The patient was seen and evaluated by Dr. Armando. His chest x-ray, labs and computed tomography scan were reviewed. We'll go ahead and increase the bronchodilators to 4 times a day and when necessary. We will add IV diuretics. We will discontinue the vancomycin and continue Bactrim for now. Infectious disease is consulted as well. We will continue to follow and make further recommendations based on his clinical status. Time with Patient: Greater than 30
[2016-12-18] MEDS: ceFAZolin 2 GM in SODIUM CHLORIDE 0.9% 100 ML IVPB SCH ×2 (15:12→23:08)
[2016-12-18] MEDS ORDERED: VANCOMYCIN 1,750 MG in SODIUM CHLORIDE 0.9% 250 ML IVPB SCH (18:00)
--- NOTE | 2016-12-18 19:30 | HP ---
DATE OF ADMISSION: 12/18/2016 CHIEF COMPLAINT: Shortness of breath. HISTORY OF ILLNESS: Mr. Stevenson is a 71-year-old male with a known history of pulmonary hypertension and paroxysmal atrial fibrillation. Anticoagulated with warfarin, status post aortic valve replacement with the Bovine valve and mitral valve repair due to ruptured ( ) and also being treated for mediastinal lymphadenopathy due to histoplasmosis, and congestive heart failure with systolic dysfunction, ejection fraction 40 to 45% as per recent echocardiogram, came to the hospital with short of breath. Patient also having wound dehiscence from sternal wound and wound closure with bilateral pectoralis muscle flaps was done previously. Patient denied any complaints of fever or chills. No complaints of chest pain. Patient had chest x-ray in the ER that showed unchanged cardiomegaly with central pulmonary vascular congestion and stable right base opacity and moderate sized right pleural effusion and CT angiogram revealed acute pulmonary emboli in the left lower lobe, subsegmental pulmonary arteries. There is posterior right upper segmental pulmonary embolus, possibly chronic. The patient was subtherapeutic with Coumadin with the INR level of 1.7, and the patient was started on Heparin drip. Pulmonary has been consulted. His NT-proBNP is 49/50. Otherwise, the patient shortness of breath is improved now compared to yesterday. Denied any cough or sputum production. REVIEW OF SYSTEMS: CONSTITUTIONAL: No fever. No chills. Patient does have weakness. RESPIRATORY: Patient denies any cough or sputum production. The patient does have short of breath. CARDIOVASCULAR: No chest pain. Patient does have short of breath. The patient does have significant leg swelling. GENITOURINARY: Negative. ENDOCRINE: Negative. PSYCHIATRY: Negative. SKIN: Negative except as above. All other fourteen-point review of systems negative except as above. Past medical history of paroxysmal atrial fibrillation, congestive heart failure with systolic dysfunction, ejection fraction 40-45%. Hypertension, hyperlipidemia, history of thyroid cancer status post surgery/radiation, current mediastinotomy, currently being treated with antibiotics by Dr. Ramos, varicose veins, rheumatic fever, aortic valve insufficiency and mitral valve regurgitation recent valve surgery, moderate pulmonary hypertension. PAST SURGICAL HISTORY: Cardiac valve replacement. Heart catheterization, joint replacement, thyroidectomy, left total knee replacement, aortic valve replacement with a bovine valve. Mitral valve repair. Mediastinal lymph node biopsy. Colonoscopy with polypectomy, benign. SOCIAL HISTORY: Patient is a former smoker, rate alcohol use, denied any drugs or IVDU. FAMILY HISTORY: Father had coronary artery disease. Father at age 76 from heart problems. Mother had no reported history. at age 92 years. Brother had liver cancer and blood clots. Home medications: 1. Aspirin. 2. Multivitamins. 3. Tylenol. 4. Atorvastatin. 5. Digoxin. 6. Lasix. 7. [place] 10. 8. Duoneb. 9. Ativan. 10. Synthroid. 11. Melatonin. 12. Metoprolol. 13. ( ). 14. Bactrim DS. 15. Coumadin. ALLERGIES: No known drug allergies. PHYSICAL EXAMINATION: A 71-year-old male lying in the bed, sitting in a chair comfortably, awake alert and oriented x3, appears to be in no apparent distress. VITALS: Blood pressure is 104/61, pulse is 80 respirations 18, temperature afebrile, pulse ox 92% on 3 L nasal cannula. HEENT: Atraumatic, normocephalic. Neck is supple. No JVD. CVS: S1, S2 heard. Sternal flap is intact. No drainage. No chest wall tenderness. LUNGS: Bilateral air entry is present. Bilateral rhonchi positive. Expiratory wheezing positive and nonlabored breathing. ABDOMEN: Soft, nontender. Bowel sounds present. CENTRAL NERVOUS SYSTEM: Awake, alert, oriented x3. No focal deficits. EXTREMITIES: Bilateral lower extremity edema 3+ and erythema as well up to the knees. Pulses palpable. No clubbing or cyanosis. PSYCHIATRIC: Cooperative. LABORATORY DATA: WBC 9.6, hemoglobin 8.3, platelets are 329, INR 1.7, d-dimer is 8.41, sodium 140, potassium 4.5, bicarb is 29, BUN 32, creatinine 1.26. Lactic acid 2.6 and calcium 6.3, albumin 2.4. CT angiogram report reviewed and venous duplex study is negative for deep venous thrombosis. Chest x-ray report reviewed. IMPRESSION: 1. Acute hypoxic respiratory failure secondary to acute pulmonary emboli as well as acute congestive heart failure exacerbation. 2. Acute on chronic congestive heart failure with systolic dysfunction and ejection fraction 40-45%. 3. Histoplasmosis status post mediastinal lymph node biopsy, currently on antibiotics in the form of cefazolin. 4. Recent aortic valve replacement with bovine valve and mitral valve with mediastinal lymph node biopsy. 5. Sternal dehiscence status post sternal exploration and debridement with wound closure with bilateral pectoralis muscle flaps. 6. Mild pulmonary hypertension. 7. Paroxysmal atrial fibrillation, on anticoagulation with Coumadin. Subtherapeutic INR level. 8. Hyperlipidemia. 9. Hypertension. 10. Osteoarthritis. 11. History of thyroid cancer status post surgery/radiation. 12. Hyperlipidemia. 13. Moderate pulmonary hypertension. 14. Gastroesophageal reflux disease. 15. Moderate protein calorie malnutrition with albumin level of 2.4. DISCUSSION AND PLAN: Patient will be continued on IV heparin and continue the Coumadin dosing and patient will be continued on IV Lasix and continue with antibiotics as per ID recommendations. Currently on cefazolin IV. Initially was on vancomycin and we will continue the oxygen therapy and follow up closely. Further recommendations based on clinical course.
[2016-12-18] MEDS ORDERED: WARFARIN 1 MG TAB PO SCH (21:00)
[2016-12-18] MEDS: ATORVASTATIN 10 MG TAB PO SCH (21:05)
[2016-12-18] MEDS: ASPIRIN 81 MG CHEW PO SCH (21:06)
[2016-12-18] MEDS: MELATONIN 3 MG TABLET PO SCH (21:06)
[2016-12-18] MEDS: MULTIVITAMINS, THERA 1 EACH TAB PO SCH (21:07)
[2016-12-18] MEDS: WARFARIN 2.5 MG TAB PO SCH (21:08)
[2016-12-18] MEDS: FUROSEMIDE 10 MG/ML 4 ML VIAL IV SCH (21:14)
[2016-12-19] MEDS: LORazepam 0.5 MG TAB PO PRN ×3 (02:33→20:00)
[2016-12-19] MEDS: HEPARIN SODIUM,PORCINE/D5W PMX 25,000 UNIT in DEXTROSE/WATER 1 500ML.BAG IV SCH ×2 (04:58→17:27)
[2016-12-19 06:08] LABS: Anisocytosis Slight; Basophils # (A) 0.1 k/uL (0-0.2); Basophils % (A) 1 %; CHCM 28.4; Eosinophils # (A) 0.2 k/uL (0-0.7); Eosinophils % (A) 1 %; HCT 29.5 % (39.0-53.0); HGB 8.7 gm/dL (13.0-17.5); Hypochromasia Marked; Luc % (Auto) 2; Lymphocytes # (A) 1.2 k/uL (1.0-4.8); Lymphocytes % (A) 10 %; MCH 23.6 pg (25.0-35.0); MCHC 29.4 g/dL (31.0-37.0); MCV 80.5 fL (80.0-100.0); Mean Platelet Volume 6.7; Microcytosis Slight; Monocytes # (A) 0.6 k/uL (0-1.0); Monocytes % (A) 5 %; Neutrophils # (A) 9.3 k/uL (1.3-7.7); Neutrophils % (A) 81 %; Poikilocytosis Slight; RBC 3.66 m/uL (4.30-5.90); RDW 18.8 % (11.5-15.5); WBC 11.4 k/uL (3.8-10.6); WBC (Perox) 11.75
[2016-12-19] MEDS: IPRATROPIUM-ALBUTEROL 3 ML NEB INHALATION SCH ×3 (08:00→19:44)
[2016-12-19] MEDS ORDERED: PANTOPRAZOLE 40 MG TABLET PO ONE (09:00)
[2016-12-19] MEDS ORDERED: LEVOTHYROXINE 75 MCG TAB ONE (09:00)
[2016-12-19] MEDS ORDERED: AMIODARONE 200 MG TAB ONE (09:00)
[2016-12-19] MEDS ORDERED: FAMOTIDINE 20 MG TAB ONE (09:00)
[2016-12-19] MEDS ORDERED: IPRATROPIUM-ALBUTEROL 3 ML NEB ONE (09:00)
[2016-12-19] MEDS ORDERED: LEVOTHYROXINE 100 MCG TAB ONE (09:00)
[2016-12-19] MEDS ORDERED: DIGOXIN 125 MCG TAB ONE (09:00)
[2016-12-19] MEDS ORDERED: FUROSEMIDE 10 MG/ML 4 ML VIAL ONE (09:00)
[2016-12-19] MEDS ORDERED: METOPROLOL TARTRATE 25 MG TAB ONE (09:00)
[2016-12-19] MEDS: LEVOTHYROXINE 100 MCG TAB PO SCH (10:56)
[2016-12-19] MEDS: LEVOTHYROXINE 75 MCG TAB PO SCH (10:56)
[2016-12-19] MEDS: DIGOXIN 125 MCG TAB PO SCH (10:56)
[2016-12-19] MEDS: MINERAL OIL-WHITE PETROLATUM 120 GM JAR TOPICAL SCH ×2 (10:56→20:03)
[2016-12-19] MEDS: ceFAZolin 2 GM in SODIUM CHLORIDE 0.9% 100 ML IVPB SCH ×3 (10:56→23:16)
[2016-12-19] MEDS: AMIODARONE 200 MG TAB PO SCH (10:56)
[2016-12-19] MEDS: METOPROLOL TARTRATE 25 MG TAB PO SCH ×3 (10:56→20:03)
[2016-12-19] MEDS: PANTOPRAZOLE 40 MG TABLET PO SCH (10:56)
[2016-12-19] MEDS: FAMOTIDINE 20 MG TAB PO SCH ×2 (10:57→20:04)
[2016-12-19] MEDS: FUROSEMIDE 10 MG/ML 4 ML VIAL IV SCH ×2 (10:57→20:04)
--- NOTE | 2016-12-19 11:55 | CONS ---
DATE OF CONSULTATION: 12/18/2016 HISTORY OF PRESENT ILLNESS: The patient is a 71-year-old male with recent ( ) to the hospital stay after the patient did have an aortic valve replacement with Bovine valve and mitral valve repair 09/27/2016. ( ) was positive for histoplasmosis. Subsequently admitted to the hospital with congestive heart failure, and dehiscence of the sternal wound status post repair of the same. Patient since then has been at the [facility] ( facility and recently at [facility]. Patient has been sent to the ER with chief complaints of increasing shortness of breath. The patient did have some cough more chronic in nature. No significant sputum production and no significant chest pain distribution. The patient did have a CT angiogram done, which was positive for pulmonary embolism and lower extremity Doppler also negative for DVT. However, the patient noticed significant swelling of the leg and erythema which the patient says has been going on for a couple of days now. The patient denies significant pain to the leg area. There is no skin breakdown. No drainage. The patient denies having any fever and chills. The patient has been admitted to hospital being treated for underlying PE. Infectious disease was consulted for recommendations regarding antibiotics and lower extremity cellulitis. REVIEW OF SYSTEMS: CONSTITUTIONAL: Positive for weakness. No high-grade fever. EYES: No complaint. ENT: No complaint. RESPIRATORY: As per HPI. CARDIOVASCULAR: No complaint. GENITOURINARY: No complaint. GASTROINTESTINAL: No complaint. MUSCULOSKELETAL: No complaint. INTEGUMENTARY: As per HPI. PSYCHOLOGICAL: No complaint. ENDOCRINAL: No complaint. NEUROLOGICAL: No complaint. Past medical history significant for atrial fibrillation, heart failure, hyperlipidemia, osteoarthritis, histoplasmosis, thyroid cancer. PAST SURGICAL HISTORY: Aortic valve replacement and mitral valve repair. ( ). ( ) thyroidectomy. Colonoscopy, polypectomy and ( ) biopsy. SOCIAL HISTORY: Remote history of smoking. No drinking or drug use. FAMILY HISTORY: Father with history of coronary artery disease. Father age 76 from heart problems. Mother of old age with history of liver cancer. ALLERGIES: No known drug allergies. MEDICATIONS: Medications currently include the patient is on: 1. Tylenol. 2. [place]. 3. DuoNeb. 4. Amiodarone. 5. Aspirin. 6. Lipitor. 7. Pepcid. 8. Lasix. 9. Heparin IV. 10. Synthroid. 11. Ativan. 12. Melatonin. 13. Lopressor. 14. Narcan. 15. Zofran. 16. Protonix. 17. Senokot. 18. Coumadin. On examination, blood pressure is 107/59 with a pulse of 85, temperature 97.9. He is 94% on 6 L nasal cannula. General description is an elderly male, up in the bed in no distress. No tachypnea or accessory muscle of respiration use. HEENT examination shows slight pallor. There is no scleral icterus. Oral mucous membrane is dry. NECK: Trachea central. There is no thyromegaly. LUNGS: Unlabored breathing. Decreased breath sounds at the base. No wheeze. No crackles. HEART: S1, S2 with regular rhythm. ABDOMEN: Soft, no tenderness. No guarding or rigidity. EXTREMITIES: Significant swelling and redness. Diffuse redness. Minimal warmth to touch. No skin breakdown. No drainage. No evidence of ( ). NEUROLOGICAL: The patient is awake, alert, oriented x2. Mood and affect normal. LABS: Hemoglobin 8.3, white count 9.6. BUN of 32, creatinine 1.26. ( ) 2.5 down to 1.2. Liver enzymes have been normal. Urine has been negative. DIAGNOSTIC IMPRESSION AND PLAN: Patient admitted to hospital with difficulty in breathing and patient has been diagnosed with percutaneous endoscopic gastrostomy feeding tube. Also with significant swelling of the leg, ( ) diffuse swelling and redness with component of possible cellulitis likely streptococcal disease, with no evidence of any ( ) or abscess formation ( ). PLAN: 1. Eber the area of the redness. 2. ( ) infusion. 3. ( ). 4. Will follow up in the clinical condition and cultures to further adjust medications if needed. Thank you for this consultation. We will follow this patient along with you.
--- NOTE | 2016-12-19 14:19 | PN ---
71-year-old gentleman well known to our service. He was seen yesterday in consultation with acute hypoxemic respiratory failure secondary to acute pulmonary embolism and acute exacerbation of the patient's underlying systolic congestive heart failure. He had a recent aortic valve replacement with a bovine valve and mitral valve repair. He has a history of previous histoplasmosis, sternal dehiscence requiring sternal exploration and pectoralis muscle flap, pulmonary hypertension, paroxysmal atrial fibrillation, hyperlipidemia, DJD, thyroid cancer, status post surgery and radiation and general medical debility. The patient is feeling a bit better today. Less short of breath. The patient was given diuretics yesterday. The patient does not have any fever or chills. No cough. Not producing any phlegm. Not coughing up any blood. Current vital signs include a temperature 96.9, heart rate 84, respiratory rate is 16, blood pressure 105/64, mean 77, 6 liters saturation 96%. Appears in no acute distress. Mildly tachypneic. Looks better than yesterday. HEENT examination is grossly unremarkable. Mucous membranes are moist. No oral lesions. Neck is supple. Full range of motion. No adenopathy or thyromegaly. Neck veins are flat. Cardiovascular examination reveals regular rhythm and rate. S1, S2 normal. No distinct murmurs noted. No S3, S4. Heart rate about mid 80s. Lungs reveal a few scattered bibasilar crackles. Breath sounds are diminished. A few rhonchi are noted. No wheezes. ABDOMEN: Soft. Bowel sounds are heard. Extremities reveal some mild edema. Skin without rash. Lab data reveals a white count 11.4, hemoglobin 8.7, hematocrit 29.5, platelet count 358,000. The rest of the labs look okay. Electrolyte profile looks okay. Microbiology is all negative thus far. Chest x-ray from the reveals evidence of cardiomegaly with pulmonary vascular congestion. CT scan was reviewed yesterday and shows evidence of acute pulmonary embolism in the left lower lobe and a possible older chronic embolism in the right upper lobe. Also, there is bilateral effusions and some ground glass opacities. There is some mild cardiomegaly as well. Medications are reviewed. ASSESSMENT: 1. Acute hypoxemic and hypercapnic respiratory failure secondary to acute pulmonary embolism as well as congestive heart failure, systolic in nature. 2. Status post recent aortic valve replacement with Bovine valve as well as mitral valve repair. 3. History of histoplasmosis. 4. Previous history and recent history of sternal dehiscence requiring sternal exploration, debridement and pectoralis muscle flap. 5. Pulmonary hypertension. 6. Paroxysmal atrial fibrillation. 7. Hyperlipidemia. 8. Degenerative joint disease. 9. Thyroid cancer, status post surgery and radiation. 10. General medical debility. PLAN: The patient seemed to be a bit less short of breath than yesterday. Feels better sitting up as oppose to lying flat. He is currently on IV heparin therapy. We will discontinue the vancomycin and continue Bactrim. Infectious disease was consulted. We will continue to follow. Prognosis is guarded.
[2016-12-19] MEDS: ASPIRIN 81 MG CHEW PO SCH (20:03)
[2016-12-19] MEDS: ATORVASTATIN 10 MG TAB PO SCH (20:03)
[2016-12-19] MEDS: MELATONIN 3 MG TABLET PO SCH (20:03)
[2016-12-19] MEDS: MULTIVITAMINS, THERA 1 EACH TAB PO SCH (20:04)
[2016-12-19] MEDS: WARFARIN 2.5 MG TAB PO SCH (20:04)
[2016-12-20] MEDS: IPRATROPIUM-ALBUTEROL 3 ML NEB INHALATION PRN ×2 (03:23→23:27)
[2016-12-20 05:56] LABS: Anisocytosis Slight; Basophils # (A) 0.1 k/uL (0-0.2); Basophils % (A) 0 %; CH 22.9; CHCM 27.7; Eosinophils # (A) 0.2 k/uL (0-0.7); Eosinophils % (A) 1 %; HDW 3.78; HGB 8.6 gm/dL (13.0-17.5); Hypochromasia Marked; Luc # (Auto) 0.36; Luc % (Auto) 3; Lymphocytes # (A) 2.3 k/uL (1.0-4.8); Lymphocytes % (A) 18 %; MCH 23.7 pg (25.0-35.0); MCHC 28.7 g/dL (31.0-37.0); MCV 82.4 fL (80.0-100.0); Mean Platelet Volume 6.8; Microcytosis Slight; Monocytes # (A) 0.4 k/uL (0-1.0); Monocytes % (A) 3 %; Neutrophils # (A) 9.5 k/uL (1.3-7.7); Neutrophils % (A) 74 %; Poikilocytosis Slight; RBC 3.64 m/uL (4.30-5.90); RDW 18.7 % (11.5-15.5); WBC 12.8 k/uL (3.8-10.6); WBC (Perox) 13.41
[2016-12-20] MEDS: LEVOTHYROXINE 100 MCG TAB PO SCH (06:10)
[2016-12-20] MEDS: LEVOTHYROXINE 75 MCG TAB PO SCH (06:10)
[2016-12-20] MEDS: MINERAL OIL-WHITE PETROLATUM 120 GM JAR TOPICAL SCH ×2 (06:11→19:41)
[2016-12-20] MEDS: PANTOPRAZOLE 40 MG TABLET PO SCH (06:57)
[2016-12-20] MEDS: METOPROLOL TARTRATE 25 MG TAB PO SCH ×3 (06:57→18:17)
[2016-12-20] MEDS: IPRATROPIUM-ALBUTEROL 3 ML NEB INHALATION SCH ×3 (08:15→20:04)
--- NOTE | 2016-12-20 08:30 | PN ---
DATE OF SERVICE: 12/19/2016 Reason for follow up is bilateral lower extremity cellulitis. INTERVAL HISTORY: The patient is afebrile. Has been breathing comfortably. Has some cough and bringing up some sputum. No chest pain, no abdominal pain. Denies worsening pain in leg area. Overall redness and swelling has sightly improved. On examination, blood pressure 128/55 with a pulse of 78, temperature is 97.5. He is 92% on 6 liters nasal cannula. General description is an elderly male up in bed in no distress. RESPIRATORY SYSTEM: Unlabored breathing but decreased at bases. HEART: S1, S2. Regular rate and rhythm. ABDOMEN: Soft, no tenderness. Legs are currently wrapped up, overall redness has slightly decreased. LABS: Hemoglobin 8.3, white count 11.4. DIAGNOSTIC IMPRESSION AND PLAN: Patient admitted with swelling and redness with complaints of possible cellulitis. Patient to continue with cefazolin along with Kieran wrap to keep the swelling down. Continue supportive care.
[2016-12-20] MEDS: FUROSEMIDE 10 MG/ML 4 ML VIAL IV SCH ×2 (09:03→19:37)
[2016-12-20] MEDS: ceFAZolin 2 GM in SODIUM CHLORIDE 0.9% 100 ML IVPB SCH ×2 (09:04→15:46)
[2016-12-20] MEDS: AMIODARONE 200 MG TAB PO SCH (09:04)
[2016-12-20] MEDS: FAMOTIDINE 20 MG TAB PO SCH (09:04)
[2016-12-20] MEDS: HEPARIN SODIUM,PORCINE/D5W PMX 25,000 UNIT in DEXTROSE/WATER 1 500ML.BAG IV SCH ×2 (09:05→15:41)
--- NOTE | 2016-12-20 10:23 | PN ---
DATE OF SERVICE: 12/19/2016 INTERVAL HISTORY: Mr. 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 The patient was found to have acute pulmonary embolism and is currently on IV heparin. Patient is subtherapeutic INR level. The patient was having subtherapeutic INR level. The patient also having lower extremity redness and swelling. DVT is negative ( ) cellulitis. Current antibiotics in the form of Cefazolin as per ID recommendations. Today patient symptomatically improved today. No complaints of worsening short of breath or chest pain. No nausea or vomiting, abdominal pain. Patient is on heparin IV. Pulmonary and ID is following this patient and otherwise, no acute overnight issues. REVIEW OF SYSTEMS: CONSTITUTIONAL: No fever or chills. No weakness. RESPIRATORY: No cough or short of breath. CARDIOVASCULAR: No chest pain or shortness of breath. No leg swelling ( ) leg swelling. ABDOMEN: No nausea, vomiting, or abdominal pain. GENITOURINARY: Negative. ENDOCRINE: Negative. PSYCHIATRY: Negative. SKIN: Negative. MUSCULOSKELETAL: Negative. All other 14 point review of systems negative. Current medications are reviewed PHYSICAL EXAMINATION: A 71-year-old male sitting on the bed comfortably, awake, alert, oriented x3. Appears in no apparent distress. VITALS: Blood pressure is 100/59, pulse is 79, respirations 20, temperature afebrile, pulse ox 92% on 2 L nasal cannula. HEENT: Atraumatic, normocephalic. Neck is supple. No JVD. CARDIOVASCULAR: S1, S2 heard. No murmurs, no gallop. LUNGS: Bilateral air entry is present. Expiratory wheezing positive. Minimal rhonchi nonlabored breathing. ABDOMEN: Soft, nontender, bowel sounds present. CENTRAL NERVOUS SYSTEM: Awake, alert and oriented times three x3. No focal deficits. Able to move all his extremities. EXTREMITIES: Bilateral lower extremity edema, 2+ left leg edema and cellulitis. Pulses are palpable bilaterally. No clubbing or cyanosis. PSYCHIATRIC: Cooperative. LABORATORY DATA: WBC 11.4, hemoglobin 8.7, platelets 358. IMPRESSION: 1. Acute hypoxic respiratory failure secondary to acute pulmonary embolism as well as acute chronic congestive heart failure exacerbation. 2. Acute on chronic congestive heart failure with systolic dysfunction ejection fraction ( )%. 3. History of histoplasmosis status post the mediastinal lymphadenopathy. 4. Lower extremity cellulitis. Deep venous thrombosis is negative and currently on antibiotics in the form of Cefazolin. 5. Recent aortic valve replacement with bovine valve and mitral valve repair. 6. Sternal wound dehiscence status post sternal exploration and debridement with wound closure with bilateral pectoralis muscle flaps. 7. Moderate pulmonary hypertension. 8. Paroxysmal atrial fibrillation on anticoagulation with Coumadin. 9. Subtherapeutic INR level. 10. Hyperlipidemia. 11. Hypertension. 12. Osteoarthritis. 13. History of ( ) cancer status post surgery and radiation. 14. Hyperlipidemia. 15. Gastroesophageal reflux disease. 16. Moderate protein calorie malnutrition with albumin level of 2.4. PLAN: The patient will be continued on IV heparin. Continue the current management and continue with antibiotics in the form of Cefazolin. Patient is symptomatically improved now. Continue the current management and further recommendations based on the clinical course. Prognosis guarded due to multiple medical problems and comorbid conditions.
--- NOTE | 2016-12-20 20:30 | P.PN ---
Subjective Principal diagnosis: Shortness of breath This is a 71-year-old male well known to ID service who came in the hospital on September 23 and underwent a JAYDE and heart catheterization showing a ruptured chordae tendonae, mitral regurgitation, moderate pulmonary hypertension , with history of paroxysmal atrial fibrillation and heart failure. 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 With this the patient was initiated to itraconazole. He however developed atrial fibrillation. Because of this he was initiated to amiodarone. The dose of itraconazole was reduced by 50%. There is no evidence of alteration of the QT interval while he was in hospital. He eventually was discharged home. It is related that he was not able to obtain the itraconazole. In this is going to be addressed in the coming days. However he returned to [facility] emergency center due to shortness of breath and was hospitalized October 06 through October 30 at which time he required intubation and mechanical ventilation. He was successfully extubated. He was treated for dehiscence of sternal wires requiring sternal exploration, debridement and wound closure with bilateral pectoralis major myocutaneous advanced flaps. He also required chest tube placement for left pleural effusion and right thoracentesis for right pleural effusion with drainage of 1.5 L of dark red tinged fluid. Muscle flap procedure was done on October 15. Patient was stabilized and then transferred to [facility] for inpatient rehab under the care of Dr. Christina. He developed increasing shortness of breath and edema and was eventually transferred to the intensive care unit where he was found to be in atrial fibrillation with rapid ventricular response and acute systolic heart failure and underwent thoracentesis with removal of 1.6 L on the right chest. Eventually his status improved and after a stay with Dr. Reyes within the inpatient rehab unit he was transferred to the [facility] for ongoing physical therapy. He then developed some increasing shortness of breath and lower extremity edema. Duplex was performed without evidence of deep venous thrombosis. Because of patient was quite short of breath a CT angiogram was performed. Evidence of the pulmonary embolus. He has not been heparinized and feeling slightly better. He continues to have dyspnea on exertion and some orthopnea but is not complaining of PND. He is not having significant cough or sputum production and no hemoptysis. No bleeding in other sites. Objective - Vital Signs Vital signs: Vital Signs Temp 97.1 F L 12/20/16 19:31 Pulse 78 12/20/16 20:04 Resp 18 12/20/16 19:33 BP 108/68 12/20/16 19:31 Pulse Ox 94 L 12/20/16 19:31 Intake & Output 12/20/16 12/20/16 12/21/16 06:59 18:59 06:59 Intake Total 720 674 180 Output Total 1720 425 400 Balance -1000 249 -220 Weight 117.8 kg Intake: Intake, IV Titration 600 100 Amount Heparin Sodium,Porcine/ 500 D5w Pmx 25,000 unit In Dextrose/Water 1 500ml. bag @ 18 UNITS/KG/HR 40. 82 mls/hr IV .[id number] STEVAN Rx#:[id number] ceFAZolin 2 gm In Sodium 100 100 Chloride 0.9% 100 ml @ 100 mls/hr IVPB Q8HR STEVAN Rx#:[id number] Oral 120 574 180 Output: Urine 1720 425 400 Other: # Voids 3 - Exam This is a 71-year-old male. He appears comfortable and is able to sit up without significant difficulty. Relates that his shortness of breath is improved. HEENT: Head is atraumatic, normocephalic. Pupils equal, round. Sclerae is anicteric. Conjunctiva slightly pale. Mucous membranes of the mouth are dry. No thrush noted. NECK: Supple. No JVD. No lymphadenopathy. No thyromegaly. LUNGS: There is symmetrical air entry. There is evidence of a few basilar crackles. Scattered expiratory wheezes. HEART: Irregular with no murmur the sternal wound is now completely healed. He has evidence of the prior pectoralis muscle flap. There is evidence of some chronic skin color change is actually improving over time. The site is not warm. There are no open lesions or drainage. ABDOMEN: Distinctly distended. Bowel sounds are normal. Organomegaly is not detected. Abdomen is nontender. EXTREMITIES: +3 bilateral pedal edema. The edema is actually improved from the last visit. He has chronic skin color changes to the bilateral lower extremities. [place] sites are without purulence or difficulty. NEUROLOGICAL: Awake and alert. No acute gross focal sensory motor deficits except generalized weakness. Vocal quality improved - Labs CBC & Chem 7: 12/20/16 05:35 12/17/16 21:37 Labs: Abnormal Lab Results - Last 24 Hours (Table) 12/20/16 12/20/16 Range/Units 05:35 05:35 WBC 12.8 H (3.8-10.6) k/uL RBC 3.64 L (4.30-5.90) m/uL Hgb 8.6 L (13.0-17.5) gm/dL Hct 30.0 L (39.0-53.0) % MCH 23.7 L (25.0-35.0) pg MCHC 28.7 L (31.0-37.0) g/dL RDW 18.7 H (11.5-15.5) % Neutrophils # 9.5 H (1.3-7.7) k/uL APTT 71.3 H (22.0-30.0) sec Microbiology - Last 24 Hours (Table) 12/17/16 21:37 Blood Culture - Preliminary Blood No Growth after 48 hours Laboratory Results WBC 12.8 k/uL (3.8-10.6) H 12/20/16 05:35 RBC 3.64 m/uL (4.30-5.90) L 12/20/16 05:35 Hgb 8.6 gm/dL (13.0-17.5) L 12/20/16 05:35 Hct 30.0 % (39.0-53.0) L 12/20/16 05:35 MCV 82.4 fL (80.0-100.0) 12/20/16 05:35 MCH 23.7 pg (25.0-35.0) L 12/20/16 05:35 MCHC 28.7 g/dL (31.0-37.0) L 12/20/16 05:35 RDW 18.7 % (11.5-15.5) H 12/20/16 05:35 Plt Count 361 k/uL (150-450) 12/20/16 05:35 Neutrophils % 74 % 12/20/16 05:35 Lymphocytes % 18 % 12/20/16 05:35 Monocytes % 3 % 12/20/16 05:35 Eosinophils % 1 % 12/20/16 05:35 Basophils % 0 % 12/20/16 05:35 Neutrophils # 9.5 k/uL (1.3-7.7) H 12/20/16 05:35 Lymphocytes # 2.3 k/uL (1.0-4.8) 12/20/16 05:35 Monocytes # 0.4 k/uL (0-1.0) 12/20/16 05:35 Eosinophils # 0.2 k/uL (0-0.7) 12/20/16 05:35 Basophils # 0.1 k/uL (0-0.2) 12/20/16 05:35 Hypochromasia Marked 12/20/16 05:35 Poikilocytosis Slight 12/20/16 05:35 Anisocytosis Slight 12/20/16 05:35 Microcytosis Slight 12/20/16 05:35 PT 16.6 sec (9.0-12.0) H 12/18/16 06:44 INR 1.7 (<1.1) 12/18/16 06:44 APTT 71.3 sec (22.0-30.0) H 12/20/16 05:35 D-Dimer 8.41 mg/L FEU (<0.60) H 12/17/16 21:37 Sodium 140 mmol/L (137-145) 12/17/16 21:37 Potassium 4.5 mmol/L (3.5-5.1) 12/17/16 21:37 Chloride 100 mmol/L (98-107) 12/17/16 21:37 Carbon Dioxide 29 mmol/L (22-30) 12/17/16 21:37 Anion Gap 11 mmol/L 12/17/16 21:37 BUN 32 mg/dL (9-20) H 12/17/16 21:37 Creatinine 1.26 mg/dL (0.66-1.25) H 12/17/16 21:37 Est GFR (MDRD) Af Amer >60 (>60 ml/min/1.73 sqM) 12/17/16 21:37 Est GFR (MDRD) Non-Af 56 (>60 ml/min/1.73 sqM) 12/17/16 21:37 Glucose 115 mg/dL (74-99) H 12/17/16 21:37 Plasma Lactic Acid Samir 1.2 mmol/L (0.7-2.0) 12/18/16 03:42 Calcium 6.3 mg/dL (8.4-10.2) L* 12/17/16 21:37 Magnesium 1.9 mg/dL (1.6-2.3) 12/17/16 21:37 Total Bilirubin 0.7 mg/dL (0.2-1.3) 12/17/16 21:37 AST 37 U/L (17-59) 12/17/16 21:37 ALT 33 U/L (21-72) 12/17/16 21:37 Alkaline Phosphatase 81 U/L (38-126) 12/17/16 21:37 Total Creatine Kinase 42 U/L (55-170) L 12/17/16 21:37 CK-MB (CK-2) 2.2 ng/mL (0.0-2.4) 12/17/16 21:37 CK-MB (CK-2) Rel Index 5.2 12/17/16 21:37 Troponin I 0.013 ng/mL (0.000-0.034) 12/17/16 21:37 NT-Pro-B Natriuret Pep 4950 pg/mL 12/17/16 21:37 Total Protein 6.3 g/dL (6.3-8.2) 12/17/16 21:37 Albumin 2.4 g/dL (3.5-5.0) L 12/17/16 21:37 Urine Color Yellow 12/17/16 23:00 Urine Appearance Clear (Clear) 12/17/16 23:00 Urine pH 6.0 (5.0-8.0) 12/17/16 23:00 Ur Specific [place] [employer] 1.011 (1.001-1.035) 12/17/16 23:00 Urine Protein Negative (Negative) 12/17/16 23:00 Urine Glucose (UA) Negative (Negative) 12/17/16 23:00 Urine Ketones Negative (Negative) 12/17/16 23:00 Urine Blood Negative (Negative) 12/17/16 23:00 Urine Nitrite Negative (Negative) 12/17/16 23:00 Urine Bilirubin Negative (Negative) 12/17/16 23:00 Urine Urobilinogen 3.0 mg/dL (<2.0) 12/17/16 23:00 Ur Leukocyte Esterase Negative (Negative) 12/17/16 23:00 Microbiology 12/17/16 21:37 Blood Blood Culture - Preliminary No Growth after 48 hours Assessment and Plan (1) Pulmonary embolism Narrative/Plan: Pleasant 71-year-old male is a very recent extensive past medical history regarding his cardiovascular disease. His aortic valve replacement and mitral valve repair in the many ongoing complications he has had since the procedures. He presented hospital with increasing lower extremity edema but profoundly having shortness of breath. He had a CT antigram showing evidence of a new pulmonary embolus that have been found. He is now receiving anticoagulation. With this he started to feel somewhat better. Fluctuates have been wrapped and the extensive edema is much improved and noted admission. They are not tender. The chronic erythema is about at baseline. There is no ascending erythema. No evidence of any significant lymphadenopathy. Patient does not appear to have infection in the limbs at this time. It appears a pulmonary embolus caused worsening lower extremity edema that is now improving. Continue with elevation and wraps. Skin moisturization continues with Eucerin. Antibiotic therapy is discontinued. At admission there was no leukocytosis and knees had no steady and fevers. He's had a mild leukocytosis develop with his anticoagulation for his PE. Will be monitored. But does not appear to have underlying infection at this time. Status: Acute (2) Atrial fibrillation with RVR Status: Acute (3) Status post aortic valve replacement Status: Acute (4) Status post mitral valve repair Status: Acute
[2016-12-20] MEDS: LORazepam 0.5 MG TAB PO PRN (21:07)
[2016-12-20] MEDS: ASPIRIN 81 MG CHEW PO SCH (21:08)
[2016-12-20] MEDS: ATORVASTATIN 10 MG TAB PO SCH (21:08)
[2016-12-20] MEDS: MELATONIN 3 MG TABLET PO SCH (21:08)
[2016-12-20] MEDS: MULTIVITAMINS, THERA 1 EACH TAB PO SCH (21:08)
[2016-12-20] MEDS: WARFARIN 2.5 MG TAB PO SCH (21:08)
[2016-12-21] MEDS: HEPARIN SODIUM,PORCINE/D5W PMX 25,000 UNIT in DEXTROSE/WATER 1 500ML.BAG IV SCH ×2 (01:30→17:36)
[2016-12-21] MEDS: MINERAL OIL-WHITE PETROLATUM 120 GM JAR TOPICAL SCH ×2 (05:52→20:41)
[2016-12-21] MEDS: LEVOTHYROXINE 100 MCG TAB PO SCH (06:00)
[2016-12-21] MEDS: LEVOTHYROXINE 75 MCG TAB PO SCH (06:00)
[2016-12-21 06:13] LABS: INR 1.9 (<1.1); Prothrombin Time 18.2 sec (9.0-12.0)
[2016-12-21 06:22] LABS: Anion Gap 11 mmol/L; Blood Urea Nitrogen 28 mg/dL (9-20); Carbon Dioxide 33 mmol/L (22-30); Chloride 95 mmol/L (98-107); Glucose 113 mg/dL (74-99); Non-African American GFR(MDRD) 51 (>60 ml/min/1.73 sqM); Potassium 3.6 mmol/L (3.5-5.1); Sodium 139 mmol/L (137-145)
[2016-12-21 06:32] LABS: Calcium 5.8 mg/dL (8.4-10.2)
[2016-12-21 06:47] LABS: Anisocytosis Slight; Basophils % (A) 0 %; CH 22.9; CHCM 28.2; Eosinophils # (A) 0.1 k/uL (0-0.7); Eosinophils % (A) 1 %; HCT 28.3 % (39.0-53.0); HGB 8.2 gm/dL (13.0-17.5); Hypochromasia Marked; Luc # (Auto) 0.12; Luc % (Auto) 1; Lymphocytes # (A) 0.4 k/uL (1.0-4.8); Lymphocytes % (A) 5 %; MCH 23.4 pg (25.0-35.0); MCV 80.6 fL (80.0-100.0); Mean Platelet Volume 6.8; Microcytosis Slight; Monocytes # (A) 0.3 k/uL (0-1.0); Monocytes % (A) 3 %; Neutrophils # (A) 8.7 k/uL (1.3-7.7); Neutrophils % (A) 90 %; Poikilocytosis Slight; RBC 3.51 m/uL (4.30-5.90); RDW 18.5 % (11.5-15.5); WBC 9.7 k/uL (3.8-10.6); WBC (Perox) 9.98
[2016-12-21] MEDS: METOPROLOL TARTRATE 25 MG TAB PO SCH ×3 (06:55→18:24)
[2016-12-21] MEDS: PANTOPRAZOLE 40 MG TABLET PO SCH (06:55)
--- NOTE | 2016-12-21 07:26 | XR ---
EXAMINATION TYPE: XR chest 1V DATE OF EXAM: 12/21/2016 HISTORY: SOB. REFERENCE: Previous study dated 12/17/2016. FINDINGS: There is multichamber cardiac enlargement. There is vascular congestion and pulmonary edema . There is confluent airspace disease at the right lung base. I suspect small effusions, greater on t he right than the left. IMPRESSION: WORSENING CHANGES OF HEART FAILURE.
[2016-12-21] MEDS: IPRATROPIUM-ALBUTEROL 3 ML NEB INHALATION SCH ×3 (08:33→19:50)
[2016-12-21] MEDS: AMIODARONE 200 MG TAB PO SCH (09:14)
[2016-12-21] MEDS: FUROSEMIDE 10 MG/ML 4 ML VIAL IV SCH ×2 (09:14→20:41)
[2016-12-21] MEDS: DIGOXIN 125 MCG TAB PO SCH (09:14)
[2016-12-21] MEDS: CALCIUM CARB-VIT D 500MG-200UN 1 EACH TAB PO SCH (18:24)
[2016-12-21] MEDS: MULTIVITAMINS, THERA 1 EACH TAB PO SCH (20:41)
[2016-12-21] MEDS: ATORVASTATIN 10 MG TAB PO SCH (20:41)
[2016-12-21] MEDS: WARFARIN 2.5 MG TAB PO SCH (20:41)
[2016-12-21] MEDS: MELATONIN 3 MG TABLET PO SCH (20:41)
[2016-12-21] MEDS: ASPIRIN 81 MG CHEW PO SCH (20:41)
[2016-12-21] MEDS: LORazepam 0.5 MG TAB PO PRN (23:18)
--- NOTE | 2016-12-21 23:24 | P.PN ---
Subjective Principal diagnosis: Shortness of breath This is a 71-year-old male well known to ID service who came in the hospital on September 23 and underwent a JAYDE and heart catheterization showing a ruptured chordae tendonae, mitral regurgitation, moderate pulmonary hypertension , with history of paroxysmal atrial fibrillation and heart failure. 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 With this the patient was initiated to itraconazole. He however developed atrial fibrillation. Because of this he was initiated to amiodarone. The dose of itraconazole was reduced by 50%. There is no evidence of alteration of the QT interval while he was in hospital. He eventually was discharged home. It is related that he was not able to obtain the itraconazole. In this is going to be addressed in the coming days. However he returned to [facility] emergency center due to shortness of breath and was hospitalized October 06 through October 30 at which time he required intubation and mechanical ventilation. He was successfully extubated. He was treated for dehiscence of sternal wires requiring sternal exploration, debridement and wound closure with bilateral pectoralis major myocutaneous advanced flaps. He also required chest tube placement for left pleural effusion and right thoracentesis for right pleural effusion with drainage of 1.5 L of dark red tinged fluid. Muscle flap procedure was done on October 15. Patient was stabilized and then transferred to [facility] for inpatient rehab under the care of Dr. Christina. He developed increasing shortness of breath and edema and was eventually transferred to the intensive care unit where he was found to be in atrial fibrillation with rapid ventricular response and acute systolic heart failure and underwent thoracentesis with removal of 1.6 L on the right chest. Eventually his status improved and after a stay with Dr. Reyes within the inpatient rehab unit he was transferred to the [facility] for ongoing physical therapy. He then developed some increasing shortness of breath and lower extremity edema. Duplex was performed without evidence of deep venous thrombosis. Because of patient was quite short of breath a CT angiogram was performed. Evidence of the pulmonary embolus. He has not been heparinized and feeling slightly better. He continues to have dyspnea on exertion and some orthopnea but is not complaining of PND. He is not having significant cough or sputum production and no hemoptysis. No bleeding in other sites. Feels better today Objective - Vital Signs Vital signs: Vital Signs Temp 97.6 F 12/21/16 16:00 Pulse 69 12/21/16 20:02 Resp 18 12/21/16 16:00 BP 112/76 12/21/16 16:00 Pulse Ox 93 L 12/21/16 16:00 Intake & Output 12/21/16 12/21/16 12/22/16 06:59 18:59 06:59 Intake Total 680 1074 Output Total 1020 500 Balance -340 574 Weight 118.2 kg Intake: Intake, IV Titration 500 500 Amount Heparin Sodium,Porcine/ 500 500 D5w Pmx 25,000 unit In Dextrose/Water 1 500ml. bag @ 18 UNITS/KG/HR 40. 82 mls/hr IV .[id number] [facility] Rx#:[id number] Oral 180 574 Output: Urine 1020 500 Other: Voiding Method Urinal # Bowel Movements 0 - Exam This is a 71-year-old male. He appears comfortable and is able to sit up without significant difficulty. Relates that his shortness of breath is improved. HEENT: Head is atraumatic, normocephalic. Pupils equal, round. Sclerae is anicteric. Conjunctiva slightly pale. Mucous membranes of the mouth are dry. No thrush noted. NECK: Supple. No JVD. No lymphadenopathy. No thyromegaly. LUNGS: There is symmetrical air entry. There is evidence of a few basilar crackles. Scattered expiratory wheezes. HEART: Irregular with no murmur the sternal wound is now completely healed. He has evidence of the prior pectoralis muscle flap. There is evidence of some chronic skin color change is actually improving over time. The site is not warm. There are no open lesions or drainage. ABDOMEN: Distinctly distended. Bowel sounds are normal. Organomegaly is not detected. Abdomen is nontender. EXTREMITIES: +3 bilateral pedal edema. The edema is actually improved from the last visit. He has chronic skin color changes to the bilateral lower extremities. [place] sites are without purulence or difficulty. NEUROLOGICAL: Awake and alert. No acute gross focal sensory motor deficits except generalized weakness. Vocal quality improved - Labs CBC & Chem 7: 12/21/16 05:25 12/21/16 05:25 Labs: Abnormal Lab Results - Last 24 Hours (Table) 12/21/16 12/21/16 12/21/16 Range/Units 05:25 05:25 05:25 RBC 3.51 L (4.30-5.90) m/uL Hgb 8.2 L (13.0-17.5) gm/dL Hct 28.3 L (39.0-53.0) % MCH 23.4 L (25.0-35.0) pg MCHC 29.0 L (31.0-37.0) g/dL RDW 18.5 H (11.5-15.5) % Neutrophils # 8.7 H (1.3-7.7) k/uL Lymphocytes # 0.4 L (1.0-4.8) k/uL PT 18.2 H (9.0-12.0) sec Chloride 95 L (98-107) mmol/L Carbon Dioxide 33 H (22-30) mmol/L BUN 28 H (9-20) mg/dL Creatinine 1.38 H (0.66-1.25) mg/dL Glucose 113 H (74-99) mg/dL Calcium 5.8 L* (8.4-10.2) mg/dL Vitamin D 25-Hydroxy (30.0-100.0) ng/mL 12/21/16 Range/Units 05:25 RBC (4.30-5.90) m/uL Hgb (13.0-17.5) gm/dL Hct (39.0-53.0) % MCH (25.0-35.0) pg MCHC (31.0-37.0) g/dL RDW (11.5-15.5) % Neutrophils # (1.3-7.7) k/uL Lymphocytes # (1.0-4.8) k/uL PT (9.0-12.0) sec Chloride (98-107) mmol/L Carbon Dioxide (22-30) mmol/L BUN (9-20) mg/dL Creatinine (0.66-1.25) mg/dL Glucose (74-99) mg/dL Calcium (8.4-10.2) mg/dL Vitamin D 25-Hydroxy 29.8 L (30.0-100.0) ng/mL Microbiology - Last 24 Hours (Table) 12/17/16 21:37 Blood Culture - Preliminary Blood No Growth after 72 hours Laboratory Results WBC 9.7 k/uL (3.8-10.6) 12/21/16 05:25 RBC 3.51 m/uL (4.30-5.90) L 12/21/16 05:25 Hgb 8.2 gm/dL (13.0-17.5) L 12/21/16 05:25 Hct 28.3 % (39.0-53.0) L 12/21/16 05:25 MCV 80.6 fL (80.0-100.0) 12/21/16 05:25 MCH 23.4 pg (25.0-35.0) L 12/21/16 05:25 MCHC 29.0 g/dL (31.0-37.0) L 12/21/16 05:25 RDW 18.5 % (11.5-15.5) H 12/21/16 05:25 Plt Count 311 k/uL (150-450) 12/21/16 05:25 Neutrophils % 90 % 12/21/16 05:25 Lymphocytes % 5 % 12/21/16 05:25 Monocytes % 3 % 12/21/16 05:25 Eosinophils % 1 % 12/21/16 05:25 Basophils % 0 % 12/21/16 05:25 Neutrophils # 8.7 k/uL (1.3-7.7) H 12/21/16 05:25 Lymphocytes # 0.4 k/uL (1.0-4.8) L 12/21/16 05:25 Monocytes # 0.3 k/uL (0-1.0) 12/21/16 05:25 Eosinophils # 0.1 k/uL (0-0.7) 12/21/16 05:25 Basophils # 0.0 k/uL (0-0.2) 12/21/16 05:25 Hypochromasia Marked 12/21/16 05:25 Poikilocytosis Slight 12/21/16 05:25 Anisocytosis Slight 12/21/16 05:25 Microcytosis Slight 12/21/16 05:25 PT 18.2 sec (9.0-12.0) H 12/21/16 05:25 INR 1.9 (<1.1) 12/21/16 05:25 APTT 71.3 sec (22.0-30.0) H 12/20/16 05:35 D-Dimer 8.41 mg/L FEU (<0.60) H 12/17/16 21:37 Sodium 139 mmol/L (137-145) 12/21/16 05:25 Potassium 3.6 mmol/L (3.5-5.1) 12/21/16 05:25 Chloride 95 mmol/L (98-107) L 12/21/16 05:25 Carbon Dioxide 33 mmol/L (22-30) H 12/21/16 05:25 Anion Gap 11 mmol/L 12/21/16 05:25 BUN 28 mg/dL (9-20) H 12/21/16 05:25 Creatinine 1.38 mg/dL (0.66-1.25) H 12/21/16 05:25 Est GFR (MDRD) Af Amer >60 (>60 ml/min/1.73 sqM) 12/21/16 05:25 Est GFR (MDRD) Non-Af 51 (>60 ml/min/1.73 sqM) 12/21/16 05:25 Glucose 113 mg/dL (74-99) H 12/21/16 05:25 Plasma Lactic Acid Samir 1.2 mmol/L (0.7-2.0) 12/18/16 03:42 Calcium 5.8 mg/dL (8.4-10.2) L* 12/21/16 05:25 Magnesium 1.9 mg/dL (1.6-2.3) 12/17/16 21:37 Total Bilirubin 0.7 mg/dL (0.2-1.3) 12/17/16 21:37 AST 37 U/L (17-59) 12/17/16 21:37 ALT 33 U/L (21-72) 12/17/16 21:37 Alkaline Phosphatase 81 U/L (38-126) 12/17/16 21:37 Total Creatine Kinase 42 U/L (55-170) L 12/17/16 21:37 CK-MB (CK-2) 2.2 ng/mL (0.0-2.4) 12/17/16 21:37 CK-MB (CK-2) Rel Index 5.2 12/17/16 21:37 Troponin I 0.013 ng/mL (0.000-0.034) 12/17/16 21:37 NT-Pro-B Natriuret Pep 4950 pg/mL 12/17/16 21:37 Total Protein 6.3 g/dL (6.3-8.2) 12/17/16 21:37 Albumin 2.4 g/dL (3.5-5.0) L 12/17/16 21:37 Vitamin D 25-Hydroxy 29.8 ng/mL (30.0-100.0) L 12/21/16 05:25 Urine Color Yellow 12/17/16 23:00 Urine Appearance Clear (Clear) 12/17/16 23:00 Urine pH 6.0 (5.0-8.0) 12/17/16 23:00 Ur Specific [place] 1.011 (1.001-1.035) 12/17/16 23:00 Urine Protein Negative (Negative) 12/17/16 23:00 Urine Glucose (UA) Negative (Negative) 12/17/16 23:00 Urine Ketones Negative (Negative) 12/17/16 23:00 Urine Blood Negative (Negative) 12/17/16 23:00 Urine Nitrite Negative (Negative) 12/17/16 23:00 Urine Bilirubin Negative (Negative) 12/17/16 23:00 Urine Urobilinogen 3.0 mg/dL (<2.0) 12/17/16 23:00 Ur Leukocyte Esterase Negative (Negative) 12/17/16 23:00 Microbiology 12/17/16 21:37 Blood Blood Culture - Preliminary No Growth after 72 hours Assessment and Plan (1) Pulmonary embolism Narrative/Plan: Pleasant 71-year-old male is a very recent extensive past medical history regarding his cardiovascular disease. His aortic valve replacement and mitral valve repair in the many ongoing complications he has had since the procedures. He presented hospital with increasing lower extremity edema but profoundly having shortness of breath. He had a CT antigram showing evidence of a new pulmonary embolus that have been found. He is now receiving anticoagulation. With this he started to feel somewhat better. Fluctuates have been wrapped and the extensive edema is much improved and noted admission. They are not tender. The chronic erythema is about at baseline. There is no ascending erythema. No evidence of any significant lymphadenopathy. Patient does not appear to have infection in the limbs at this time. It appears a pulmonary embolus caused worsening lower extremity edema that is now improving. Continue with elevation and wraps. Skin moisturization continues with Eucerin. Antibiotic therapy is discontinued. At admission there was no leukocytosis and knees had no steady and fevers. He's had a mild leukocytosis whcih has now resolved. But does not appear to have underlying infection at this time. Status: Acute (2) Atrial fibrillation with RVR Status: Acute (3) Status post aortic valve replacement Status: Acute (4) Status post mitral valve repair Status: Acute
[2016-12-22] MEDS: IPRATROPIUM-ALBUTEROL 3 ML NEB INHALATION PRN (01:17)
[2016-12-22 05:53] LABS: Anisocytosis Slight; Basophils % (A) 0 %; CH 23.1; CHCM 29.2; Eosinophils # (A) 0.2 k/uL (0-0.7); Eosinophils % (A) 2 %; HCT 26.1 % (39.0-53.0); HDW 3.79; HGB 7.7 gm/dL (13.0-17.5); Hypochromasia Marked; Luc # (Auto) 0.13; Luc % (Auto) 2; Lymphocytes # (A) 0.7 k/uL (1.0-4.8); Lymphocytes % (A) 8 %; MCH 23.1 pg (25.0-35.0); MCHC 29.4 g/dL (31.0-37.0); MCV 78.6 fL (80.0-100.0); Mean Platelet Volume 6.8; Microcytosis Slight; Monocytes # (A) 0.4 k/uL (0-1.0); Monocytes % (A) 5 %; Neutrophils # (A) 6.9 k/uL (1.3-7.7); Neutrophils % (A) 83 %; Poikilocytosis Slight; RBC 3.32 m/uL (4.30-5.90); RDW 18.7 % (11.5-15.5); WBC 8.2 k/uL (3.8-10.6); WBC (Perox) 8.04
[2016-12-22] MEDS: LEVOTHYROXINE 100 MCG TAB PO SCH (06:31)
[2016-12-22] MEDS: LEVOTHYROXINE 75 MCG TAB PO SCH (06:31)
[2016-12-22] MEDS: PANTOPRAZOLE 40 MG TABLET PO SCH (06:31)
[2016-12-22] MEDS: MINERAL OIL-WHITE PETROLATUM 120 GM JAR TOPICAL SCH (06:31)
[2016-12-22] MEDS: METOPROLOL TARTRATE 25 MG TAB PO SCH ×3 (06:31→20:27)
[2016-12-22] MEDS: CALCIUM CARB-VIT D 500MG-200UN 1 EACH TAB PO SCH ×2 (06:31→17:14)
[2016-12-22] MEDS: HEPARIN SODIUM,PORCINE/D5W PMX 25,000 UNIT in DEXTROSE/WATER 1 500ML.BAG IV SCH ×2 (06:36→23:17)
[2016-12-22] MEDS: IPRATROPIUM-ALBUTEROL 3 ML NEB INHALATION SCH ×3 (07:58→20:08)
[2016-12-22] MEDS: FUROSEMIDE 10 MG/ML 4 ML VIAL IV SCH ×3 (09:38→23:17)
[2016-12-22] MEDS: AMIODARONE 200 MG TAB PO SCH (09:38)
--- NOTE | 2016-12-22 19:46 | P.PN ---
Subjective Principal diagnosis: Shortness of breath This is a 71-year-old male well known to ID service who came in the hospital on September 23 and underwent a JAYDE and heart catheterization showing a ruptured chordae tendonae, mitral regurgitation, moderate pulmonary hypertension , with history of paroxysmal atrial fibrillation and heart failure. 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 With this the patient was initiated to itraconazole. He however developed atrial fibrillation. Because of this he was initiated to amiodarone. The dose of itraconazole was reduced by 50%. There is no evidence of alteration of the QT interval while he was in hospital. He eventually was discharged home. It is related that he was not able to obtain the itraconazole. In this is going to be addressed in the coming days. However he returned to [facility] emergency center due to shortness of breath and was hospitalized October 06 through October 30 at which time he required intubation and mechanical ventilation. He was successfully extubated. He was treated for dehiscence of sternal wires requiring sternal exploration, debridement and wound closure with bilateral pectoralis major myocutaneous advanced flaps. He also required chest tube placement for left pleural effusion and right thoracentesis for right pleural effusion with drainage of 1.5 L of dark red tinged fluid. Muscle flap procedure was done on October 15. Patient was stabilized and then transferred to [facility] for inpatient rehab under the care of Dr. Christina. He developed increasing shortness of breath and edema and was eventually transferred to the intensive care unit where he was found to be in atrial fibrillation with rapid ventricular response and acute systolic heart failure and underwent thoracentesis with removal of 1.6 L on the right chest. Eventually his status improved and after a stay with Dr. Reyes within the inpatient rehab unit he was transferred to the [facility] for ongoing physical therapy. He then developed some increasing shortness of breath and lower extremity edema. Duplex was performed without evidence of deep venous thrombosis. Because of patient was quite short of breath a CT angiogram was performed. Evidence of the pulmonary embolus. He has not been heparinized and feeling slightly better. He continues to have dyspnea on exertion and some orthopnea but is not complaining of PND. He is not having significant cough or sputum production and no hemoptysis. No bleeding in other sites. Feels better today had some SOB last night now resolved. Objective - Vital Signs Vital signs: Vital Signs Temp 97.1 F L 12/22/16 15:49 Pulse 76 12/22/16 15:49 Resp 20 12/22/16 15:49 BP 93/60 12/22/16 15:49 Pulse Ox 95 12/22/16 15:49 Intake & Output 12/22/16 12/22/16 12/23/16 06:59 18:59 06:59 Intake Total 1086.675 732.125 Output Total 750 725 Balance 336.675 7.125 Weight 118.4 kg Intake: IV 646.8 432 0.9 240 160 Heparin 406.8 272 Intake, IV Titration 439.875 60.125 Amount Heparin Sodium,Porcine/ 439.875 60.125 D5w Pmx 25,000 unit In Dextrose/Water 1 500ml. bag @ 18 UNITS/KG/HR 40. 82 mls/hr IV .[id number] [facility] Rx#:[id number] Oral 240 Output: Urine 750 725 Other: Voiding Method Urinal Urinal # Voids 1 1 # Bowel Movements 1 - Exam This is a 71-year-old male. He appears comfortable and is able to sit up without significant difficulty. Relates that his shortness of breath is improved. HEENT: Head is atraumatic, normocephalic. Pupils equal, round. Sclerae is anicteric. Conjunctiva slightly pale. Mucous membranes of the mouth are dry. No thrush noted. NECK: Supple. No JVD. No lymphadenopathy. No thyromegaly. LUNGS: There is symmetrical air entry. There is evidence of a few basilar crackles. Scattered expiratory wheezes. HEART: Irregular with no murmur the sternal wound is now completely healed. He has evidence of the prior pectoralis muscle flap. There is evidence of some chronic skin color change is actually improving over time. The site is not warm. There are no open lesions or drainage. ABDOMEN: Distinctly distended. Bowel sounds are normal. Organomegaly is not detected. Abdomen is nontender. EXTREMITIES: +3 bilateral pedal edema. The edema is actually improved from the last visit. He has chronic skin color changes to the bilateral lower extremities. [place] sites are without purulence or difficulty. NEUROLOGICAL: Awake and alert. No acute gross focal sensory motor deficits except generalized weakness. Vocal quality improved - Labs CBC & Chem 7: 12/22/16 05:29 12/21/16 05:25 Labs: Abnormal Lab Results - Last 24 Hours (Table) 12/22/16 12/22/16 Range/Units 05:29 05:29 RBC 3.32 L (4.30-5.90) m/uL Hgb 7.7 L (13.0-17.5) gm/dL Hct 26.1 L (39.0-53.0) % MCV 78.6 L (80.0-100.0) fL MCH 23.1 L (25.0-35.0) pg MCHC 29.4 L (31.0-37.0) g/dL RDW 18.7 H (11.5-15.5) % Lymphocytes # 0.7 L (1.0-4.8) k/uL APTT 66.6 H (22.0-30.0) sec Microbiology - Last 24 Hours (Table) 12/17/16 21:37 Blood Culture - Preliminary Blood No Growth after 96 hours Laboratory Results WBC 8.2 k/uL (3.8-10.6) 12/22/16 05:29 RBC 3.32 m/uL (4.30-5.90) L 12/22/16 05:29 Hgb 7.7 gm/dL (13.0-17.5) L 12/22/16 05:29 Hct 26.1 % (39.0-53.0) L 12/22/16 05:29 MCV 78.6 fL (80.0-100.0) L 12/22/16 05:29 MCH 23.1 pg (25.0-35.0) L 12/22/16 05:29 MCHC 29.4 g/dL (31.0-37.0) L 12/22/16 05:29 RDW 18.7 % (11.5-15.5) H 12/22/16 05:29 Plt Count 306 k/uL (150-450) 12/22/16 05:29 Neutrophils % 83 % 12/22/16 05:29 Lymphocytes % 8 % 12/22/16 05:29 Monocytes % 5 % 12/22/16 05:29 Eosinophils % 2 % 12/22/16 05:29 Basophils % 0 % 12/22/16 05:29 Neutrophils # 6.9 k/uL (1.3-7.7) 12/22/16 05:29 Lymphocytes # 0.7 k/uL (1.0-4.8) L 12/22/16 05:29 Monocytes # 0.4 k/uL (0-1.0) 12/22/16 05:29 Eosinophils # 0.2 k/uL (0-0.7) 12/22/16 05:29 Basophils # 0.0 k/uL (0-0.2) 12/22/16 05:29 Hypochromasia Marked 12/22/16 05:29 Poikilocytosis Slight 12/22/16 05:29 Anisocytosis Slight 12/22/16 05:29 Microcytosis Slight 12/22/16 05:29 PT 18.2 sec (9.0-12.0) H 12/21/16 05:25 INR 1.9 (<1.1) 12/21/16 05:25 APTT 66.6 sec (22.0-30.0) H 12/22/16 05:29 D-Dimer 8.41 mg/L FEU (<0.60) H 12/17/16 21:37 Sodium 139 mmol/L (137-145) 12/21/16 05:25 Potassium 3.6 mmol/L (3.5-5.1) 12/21/16 05:25 Chloride 95 mmol/L (98-107) L 12/21/16 05:25 Carbon Dioxide 33 mmol/L (22-30) H 12/21/16 05:25 Anion Gap 11 mmol/L 12/21/16 05:25 BUN 28 mg/dL (9-20) H 12/21/16 05:25 Creatinine 1.38 mg/dL (0.66-1.25) H 12/21/16 05:25 Est GFR (MDRD) Af Amer >60 (>60 ml/min/1.73 sqM) 12/21/16 05:25 Est GFR (MDRD) Non-Af 51 (>60 ml/min/1.73 sqM) 12/21/16 05:25 Glucose 113 mg/dL (74-99) H 12/21/16 05:25 Plasma Lactic Acid Samir 1.2 mmol/L (0.7-2.0) 12/18/16 03:42 Calcium 5.8 mg/dL (8.4-10.2) L* 12/21/16 05:25 Magnesium 1.9 mg/dL (1.6-2.3) 12/17/16 21:37 Total Bilirubin 0.7 mg/dL (0.2-1.3) 12/17/16 21:37 AST 37 U/L (17-59) 12/17/16 21:37 ALT 33 U/L (21-72) 12/17/16 21:37 Alkaline Phosphatase 81 U/L (38-126) 12/17/16 21:37 Total Creatine Kinase 42 U/L (55-170) L 12/17/16 21:37 CK-MB (CK-2) 2.2 ng/mL (0.0-2.4) 12/17/16 21:37 CK-MB (CK-2) Rel Index 5.2 12/17/16 21:37 Troponin I 0.013 ng/mL (0.000-0.034) 12/17/16 21:37 NT-Pro-B Natriuret Pep 4950 pg/mL 12/17/16 21:37 Total Protein 6.3 g/dL (6.3-8.2) 12/17/16 21:37 Albumin 2.4 g/dL (3.5-5.0) L 12/17/16 21:37 Vitamin D 25-Hydroxy 29.8 ng/mL (30.0-100.0) L 12/21/16 05:25 Urine Color Yellow 12/17/16 23:00 Urine Appearance Clear (Clear) 12/17/16 23:00 Urine pH 6.0 (5.0-8.0) 12/17/16 23:00 Ur Specific [place] 1.011 (1.001-1.035) 12/17/16 23:00 Urine Protein Negative (Negative) 12/17/16 23:00 Urine Glucose (UA) Negative (Negative) 12/17/16 23:00 Urine Ketones Negative (Negative) 12/17/16 23:00 Urine Blood Negative (Negative) 12/17/16 23:00 Urine Nitrite Negative (Negative) 12/17/16 23:00 Urine Bilirubin Negative (Negative) 12/17/16 23:00 Urine Urobilinogen 3.0 mg/dL (<2.0) 12/17/16 23:00 Ur Leukocyte Esterase Negative (Negative) 12/17/16 23:00 Microbiology 12/17/16 21:37 Blood Blood Culture - Preliminary No Growth after 96 hours Assessment and Plan (1) Pulmonary embolism Narrative/Plan: Pleasant 71-year-old male is a very recent extensive past medical history regarding his cardiovascular disease. His aortic valve replacement and mitral valve repair in the many ongoing complications he has had since the procedures. He presented hospital with increasing lower extremity edema but profoundly having shortness of breath. He had a CT antigram showing evidence of a new pulmonary embolus that have been found. He is now receiving anticoagulation. With this he started to feel somewhat better. Fluctuates have been wrapped and the extensive edema is much improved and noted admission. They are not tender. The chronic erythema is about at baseline. There is no ascending erythema. No evidence of any significant lymphadenopathy. Patient does not appear to have infection in the limbs at this time. It appears a pulmonary embolus caused worsening lower extremity edema that is now improving. Continue with elevation and wraps. Skin moisturization continues with Eucerin. Antibiotic therapy is discontinued. At admission there was no leukocytosis and no fevers. He's had a mild leukocytosis which has now resolved. But does not appear to have underlying infection at this time. Some worsening CHF has been treated with improvement. Status: Acute (2) Atrial fibrillation with RVR Status: Acute (3) Status post aortic valve replacement Status: Acute (4) Status post mitral valve repair Status: Acute
[2016-12-22 20:10] LABS: Prothrombin Time 18.9 sec (9.0-12.0)
[2016-12-22] MEDS: MULTIVITAMINS, THERA 1 EACH TAB PO SCH (20:27)
[2016-12-22] MEDS: ASPIRIN 81 MG CHEW PO SCH (20:27)
[2016-12-22] MEDS: WARFARIN 2.5 MG TAB PO SCH (20:27)
[2016-12-22] MEDS: ATORVASTATIN 10 MG TAB PO SCH (20:27)
[2016-12-22] MEDS: MELATONIN 3 MG TABLET PO SCH (20:27)
[2016-12-23] MEDS: IPRATROPIUM-ALBUTEROL 3 ML NEB INHALATION PRN ×3 (00:18→23:53)
[2016-12-23] MEDS: LORazepam 0.5 MG TAB PO PRN (01:23)
[2016-12-23] MEDS: MINERAL OIL-WHITE PETROLATUM 120 GM JAR TOPICAL SCH ×3 (04:15→23:57)
[2016-12-23] MEDS: LEVOTHYROXINE 100 MCG TAB PO SCH (05:58)
[2016-12-23] MEDS: LEVOTHYROXINE 75 MCG TAB PO SCH (05:58)
[2016-12-23] MEDS: HEPARIN SODIUM,PORCINE/D5W PMX 25,000 UNIT in DEXTROSE/WATER 1 500ML.BAG IV SCH ×2 (05:59→14:26)
[2016-12-23 06:12] LABS: Anisocytosis Slight; Basophils % (A) 0 %; CH 22.9; CHCM 28.6; Eosinophils # (A) 0.2 k/uL (0-0.7); Eosinophils % (A) 2 %; HCT 26.4 % (39.0-53.0); HGB 7.8 gm/dL (13.0-17.5); Hypochromasia Marked; Luc # (Auto) 0.18; Luc % (Auto) 2; Lymphocytes # (A) 0.8 k/uL (1.0-4.8); Lymphocytes % (A) 9 %; MCH 23.6 pg (25.0-35.0); MCHC 29.6 g/dL (31.0-37.0); MCV 79.7 fL (80.0-100.0); Mean Platelet Volume 6.6; Microcytosis Slight; Monocytes # (A) 0.4 k/uL (0-1.0); Monocytes % (A) 5 %; Neutrophils # (A) 6.9 k/uL (1.3-7.7); Neutrophils % (A) 81 %; Poikilocytosis Slight; RBC 3.31 m/uL (4.30-5.90); RDW 18.6 % (11.5-15.5); WBC 8.5 k/uL (3.8-10.6); WBC (Perox) 9.22
[2016-12-23 06:19] LABS: Prothrombin Time 18.8 sec (9.0-12.0)
[2016-12-23] MEDS: PANTOPRAZOLE 40 MG TABLET PO SCH (06:41)
[2016-12-23] MEDS: METOPROLOL TARTRATE 25 MG TAB PO SCH ×3 (06:41→19:07)
[2016-12-23] MEDS: CALCIUM CARB-VIT D 500MG-200UN 1 EACH TAB PO SCH ×2 (06:41→17:05)
[2016-12-23] MEDS: IPRATROPIUM-ALBUTEROL 3 ML NEB INHALATION SCH ×3 (07:54→19:29)
[2016-12-23] MEDS: AMIODARONE 200 MG TAB PO SCH (09:15)
[2016-12-23] MEDS: DIGOXIN 125 MCG TAB PO SCH (09:16)
[2016-12-23] MEDS: FUROSEMIDE 10 MG/ML 4 ML VIAL IV SCH ×3 (09:16→23:46)
[2016-12-23] MEDS: MELATONIN 3 MG TABLET PO SCH (19:57)
[2016-12-23] MEDS: ATORVASTATIN 10 MG TAB PO SCH (19:57)
[2016-12-23] MEDS: MULTIVITAMINS, THERA 1 EACH TAB PO SCH (19:58)
[2016-12-23] MEDS: WARFARIN 2.5 MG TAB PO SCH (19:58)
[2016-12-23] MEDS: ASPIRIN 81 MG CHEW PO SCH (19:58)
--- NOTE | 2016-12-23 23:10 | P.PN ---
Subjective Principal diagnosis: Shortness of breath This is a 71-year-old male well known to ID service who came in the hospital on September 23 and underwent a JAYDE and heart catheterization showing a ruptured chordae tendonae, mitral regurgitation, moderate pulmonary hypertension , with history of paroxysmal atrial fibrillation and heart failure. 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 With this the patient was initiated to itraconazole. He however developed atrial fibrillation. Because of this he was initiated to amiodarone. The dose of itraconazole was reduced by 50%. There is no evidence of alteration of the QT interval while he was in hospital. He eventually was discharged home. It is related that he was not able to obtain the itraconazole. In this is going to be addressed in the coming days. However he returned to [facility] due to shortness of breath and was hospitalized October 06 through October 30 at which time he required intubation and mechanical ventilation. He was successfully extubated. He was treated for dehiscence of sternal wires requiring sternal exploration, debridement and wound closure with bilateral pectoralis major myocutaneous advanced flaps. He also required chest tube placement for left pleural effusion and right thoracentesis for right pleural effusion with drainage of 1.5 L of dark red tinged fluid. Muscle flap procedure was done on October 15. Patient was stabilized and then transferred to [facility] for inpatient rehab under the care of Dr. Christina. He developed increasing shortness of breath and edema and was eventually transferred to the intensive care unit where he was found to be in atrial fibrillation with rapid ventricular response and acute systolic heart failure and underwent thoracentesis with removal of 1.6 L on the right chest. Eventually his status improved and after a stay with Dr. Reyes within the inpatient rehab unit he was transferred to the [facility] for ongoing physical therapy. He then developed some increasing shortness of breath and lower extremity edema. Duplex was performed without evidence of deep venous thrombosis. Because of patient was quite short of breath a CT angiogram was performed. Evidence of the pulmonary embolus. He has not been heparinized and feeling slightly better. He continues to have dyspnea on exertion and some orthopnea but is not complaining of PND. He is not having significant cough or sputum production and no hemoptysis. No bleeding in other sites. Feels better today had some SOB is now improved. Looks forward to going to the [facility] on Tuesday. Objective - Vital Signs Vital signs: Vital Signs Temp 96.9 F L 12/23/16 19:51 Pulse 74 12/23/16 19:51 Resp 20 12/23/16 19:51 BP 113/69 12/23/16 19:51 Pulse Ox 96 12/23/16 19:51 Intake & Output 12/23/16 12/23/16 12/24/16 06:59 18:59 06:59 Intake Total 226.393 525.526 Output Total 500 800 775 Balance -273.607 -274.474 -775 Weight 117.4 kg 117.4 kg Intake: Intake, IV Titration 226.393 285.526 Amount Heparin Sodium,Porcine/ 226.393 285.526 D5w Pmx 25,000 unit In Dextrose/Water 1 500ml. bag @ 18 UNITS/KG/HR 40. 82 mls/hr IV .[id number] [facility] Rx#:[id number] Oral 240 Output: Urine 500 800 775 Other: Voiding Method Urinal Urinal Urinal # Voids 3 2 # Bowel Movements 1 - Exam This is a 71-year-old male. He appears comfortable and is able to sit up without significant difficulty. Relates that his shortness of breath is improved. HEENT: Head is atraumatic, normocephalic. Pupils equal, round. Sclerae is anicteric. Conjunctiva slightly pale. Mucous membranes of the mouth are dry. No thrush noted. NECK: Supple. No JVD. No lymphadenopathy. No thyromegaly. LUNGS: There is symmetrical air entry. There is evidence of a few basilar crackles. Scattered expiratory wheezes. HEART: Irregular with no murmur the sternal wound is now completely healed. He has evidence of the prior pectoralis muscle flap. There is evidence of some chronic skin color change is actually improving over time. The site is not warm. There are no open lesions or drainage. ABDOMEN: Distinctly distended. Bowel sounds are normal. Organomegaly is not detected. Abdomen is nontender. EXTREMITIES: +3 bilateral pedal edema. The edema is actually improved from the last visit. He has chronic skin color changes to the bilateral lower extremities. [place] sites are without purulence or difficulty. NEUROLOGICAL: Awake and alert. No acute gross focal sensory motor deficits except generalized weakness. Vocal quality improved - Labs CBC & Chem 7: 12/23/16 05:31 12/21/16 05:25 Labs: Abnormal Lab Results - Last 24 Hours (Table) 12/23/16 12/23/16 Range/Units 05:31 05:31 RBC 3.31 L (4.30-5.90) m/uL Hgb 7.8 L (13.0-17.5) gm/dL Hct 26.4 L (39.0-53.0) % MCV 79.7 L (80.0-100.0) fL MCH 23.6 L (25.0-35.0) pg MCHC 29.6 L (31.0-37.0) g/dL RDW 18.6 H (11.5-15.5) % Lymphocytes # 0.8 L (1.0-4.8) k/uL PT 18.8 H (9.0-12.0) sec Microbiology - Last 24 Hours (Table) 12/17/16 21:37 Blood Culture - Preliminary Blood No Growth after 120 hours Laboratory Results WBC 8.5 k/uL (3.8-10.6) 12/23/16 05:31 RBC 3.31 m/uL (4.30-5.90) L 12/23/16 05:31 Hgb 7.8 gm/dL (13.0-17.5) L 12/23/16 05:31 Hct 26.4 % (39.0-53.0) L 12/23/16 05:31 MCV 79.7 fL (80.0-100.0) L 12/23/16 05:31 MCH 23.6 pg (25.0-35.0) L 12/23/16 05:31 MCHC 29.6 g/dL (31.0-37.0) L 12/23/16 05:31 RDW 18.6 % (11.5-15.5) H 12/23/16 05:31 Plt Count 298 k/uL (150-450) 12/23/16 05:31 Neutrophils % 81 % 12/23/16 05:31 Lymphocytes % 9 % 12/23/16 05:31 Monocytes % 5 % 12/23/16 05:31 Eosinophils % 2 % 12/23/16 05:31 Basophils % 0 % 12/23/16 05:31 Neutrophils # 6.9 k/uL (1.3-7.7) 12/23/16 05:31 Lymphocytes # 0.8 k/uL (1.0-4.8) L 12/23/16 05:31 Monocytes # 0.4 k/uL (0-1.0) 12/23/16 05:31 Eosinophils # 0.2 k/uL (0-0.7) 12/23/16 05:31 Basophils # 0.0 k/uL (0-0.2) 12/23/16 05:31 Hypochromasia Marked 12/23/16 05:31 Poikilocytosis Slight 12/23/16 05:31 Anisocytosis Slight 12/23/16 05:31 Microcytosis Slight 12/23/16 05:31 PT 18.8 sec (9.0-12.0) H 12/23/16 05:31 INR 2.0 (<1.1) 12/23/16 05:31 APTT 66.6 sec (22.0-30.0) H 12/22/16 05:29 D-Dimer 8.41 mg/L FEU (<0.60) H 12/17/16 21:37 Sodium 139 mmol/L (137-145) 12/21/16 05:25 Potassium 3.6 mmol/L (3.5-5.1) 12/21/16 05:25 Chloride 95 mmol/L (98-107) L 12/21/16 05:25 Carbon Dioxide 33 mmol/L (22-30) H 12/21/16 05:25 Anion Gap 11 mmol/L 12/21/16 05:25 BUN 28 mg/dL (9-20) H 12/21/16 05:25 Creatinine 1.38 mg/dL (0.66-1.25) H 12/21/16 05:25 Est GFR (MDRD) Af Amer >60 (>60 ml/min/1.73 sqM) 12/21/16 05:25 Est GFR (MDRD) Non-Af 51 (>60 ml/min/1.73 sqM) 12/21/16 05:25 Glucose 113 mg/dL (74-99) H 12/21/16 05:25 Plasma Lactic Acid Samir 1.2 mmol/L (0.7-2.0) 12/18/16 03:42 Calcium 5.8 mg/dL (8.4-10.2) L* 12/21/16 05:25 Magnesium 1.9 mg/dL (1.6-2.3) 12/17/16 21:37 Total Bilirubin 0.7 mg/dL (0.2-1.3) 12/17/16 21:37 AST 37 U/L (17-59) 12/17/16 21:37 ALT 33 U/L (21-72) 12/17/16 21:37 Alkaline Phosphatase 81 U/L (38-126) 12/17/16 21:37 Total Creatine Kinase 42 U/L (55-170) L 12/17/16 21:37 CK-MB (CK-2) 2.2 ng/mL (0.0-2.4) 12/17/16 21:37 CK-MB (CK-2) Rel Index 5.2 12/17/16 21:37 Troponin I 0.013 ng/mL (0.000-0.034) 12/17/16 21:37 NT-Pro-B Natriuret Pep 4950 pg/mL 12/17/16 21:37 Total Protein 6.3 g/dL (6.3-8.2) 12/17/16 21:37 Albumin 2.4 g/dL (3.5-5.0) L 12/17/16 21:37 Vitamin D 25-Hydroxy 29.8 ng/mL (30.0-100.0) L 12/21/16 05:25 Urine Color Yellow 12/17/16 23:00 Urine Appearance Clear (Clear) 12/17/16 23:00 Urine pH 6.0 (5.0-8.0) 12/17/16 23:00 Ur Specific [place] 1.011 (1.001-1.035) 12/17/16 23:00 Urine Protein Negative (Negative) 12/17/16 23:00 Urine Glucose (UA) Negative (Negative) 12/17/16 23:00 Urine Ketones Negative (Negative) 12/17/16 23:00 Urine Blood Negative (Negative) 12/17/16 23:00 Urine Nitrite Negative (Negative) 12/17/16 23:00 Urine Bilirubin Negative (Negative) 12/17/16 23:00 Urine Urobilinogen 3.0 mg/dL (<2.0) 12/17/16 23:00 Ur Leukocyte Esterase Negative (Negative) 12/17/16 23:00 Microbiology 12/17/16 21:37 Blood Blood Culture - Preliminary No Growth after 120 hours Assessment and Plan (1) Pulmonary embolism Narrative/Plan: Pleasant 71-year-old male is a very recent extensive past medical history regarding his cardiovascular disease. His aortic valve replacement and mitral valve repair in the many ongoing complications he has had since the procedures. He presented hospital with increasing lower extremity edema but profoundly having shortness of breath. He had a CT antigram showing evidence of a new pulmonary embolus that have been found. He is now receiving anticoagulation. With this he started to feel somewhat better. Fluctuates have been wrapped and the extensive edema is much improved and noted admission. They are not tender. The chronic erythema is about at baseline. There is no ascending erythema. No evidence of any significant lymphadenopathy. Patient does not appear to have infection in the limbs at this time. It appears a pulmonary embolus caused worsening lower extremity edema that is now improving. Continue with elevation and wraps. Skin moisturization continues with Eucerin. Antibiotic therapy is discontinued. At admission there was no leukocytosis and no fevers. He's had a mild leukocytosis which has now resolved. But does not appear to have underlying infection at this time. Some worsening CHF has been treated with improvement. Does feel better today. Looking forward to finishing his therapy at [facility]. Status: Acute (2) Atrial fibrillation with RVR Status: Acute (3) Status post aortic valve replacement Status: Acute (4) Status post mitral valve repair Status: Acute
[2016-12-24] MEDS: IPRATROPIUM-ALBUTEROL 3 ML NEB INHALATION PRN (03:44)
[2016-12-24] MEDS: LEVOTHYROXINE 75 MCG TAB PO SCH (05:53)
[2016-12-24] MEDS: LEVOTHYROXINE 100 MCG TAB PO SCH (05:53)
[2016-12-24] MEDS: HEPARIN SODIUM,PORCINE/D5W PMX 25,000 UNIT in DEXTROSE/WATER 1 500ML.BAG IV SCH ×2 (05:53→23:25)
[2016-12-24] MEDS: MINERAL OIL-WHITE PETROLATUM 120 GM JAR TOPICAL SCH ×2 (05:54→20:30)
[2016-12-24 06:17] LABS: Anisocytosis Slight; Basophils % (A) 0 %; CH 22.8; CHCM 28.1; Eosinophils # (A) 0.2 k/uL (0-0.7); Eosinophils % (A) 2 %; HCT 28.7 % (39.0-53.0); HDW 3.74; HGB 8.5 gm/dL (13.0-17.5); Hypochromasia Marked; Luc # (Auto) 0.18; Luc % (Auto) 2; Lymphocytes # (A) 0.6 k/uL (1.0-4.8); Lymphocytes % (A) 6 %; MCH 23.9 pg (25.0-35.0); MCHC 29.6 g/dL (31.0-37.0); MCV 80.6 fL (80.0-100.0); Mean Platelet Volume 7.5; Microcytosis Slight; Monocytes # (A) 0.5 k/uL (0-1.0); Monocytes % (A) 5 %; Neutrophils % (A) 84 %; Poikilocytosis Slight; RBC 3.56 m/uL (4.30-5.90); RDW 18.8 % (11.5-15.5); WBC 9.4 k/uL (3.8-10.6); WBC (Perox) 9.88
[2016-12-24 06:36] LABS: Anion Gap 8 mmol/L; Blood Urea Nitrogen 26 mg/dL (9-20); Carbon Dioxide 35 mmol/L (22-30); Chloride 94 mmol/L (98-107); Glucose 95 mg/dL (74-99); Non-African American GFR(MDRD) >60 (>60 ml/min/1.73 sqM); Potassium 3.9 mmol/L (3.5-5.1); Sodium 137 mmol/L (137-145)
[2016-12-24 06:37] LABS: Calcium 6.1 mg/dL (8.4-10.2)
[2016-12-24] MEDS: CALCIUM CARB-VIT D 500MG-200UN 1 EACH TAB PO SCH ×2 (06:52→16:38)
[2016-12-24] MEDS: METOPROLOL TARTRATE 25 MG TAB PO SCH ×3 (06:52→18:26)
[2016-12-24] MEDS: PANTOPRAZOLE 40 MG TABLET PO SCH (06:52)
[2016-12-24] MEDS: IPRATROPIUM-ALBUTEROL 3 ML NEB INHALATION SCH ×3 (07:46→19:27)
[2016-12-24] MEDS: AMIODARONE 200 MG TAB PO SCH (08:25)
[2016-12-24] MEDS: FUROSEMIDE 10 MG/ML 4 ML VIAL IV SCH ×3 (08:26→23:24)
--- NOTE | 2016-12-24 09:34 | XR ---
EXAMINATION TYPE: XR chest 1V DATE OF EXAM: 12/24/2016 COMPARISON: NONE INDICATION: CHF TECHNIQUE: Single frontal view of the chest is obtained. FINDINGS: The heart size is enlarged. The pulmonary vasculature is prominent. Diffuse increased lung markings are present bilaterally. A small right pleural effusion may be presen t. IMPRESSION: 1. Worsening congestive heart failure. Follow-up is recommended.
--- NOTE | 2016-12-24 09:40 | PN ---
DATE OF SERVICE: 12/23/2016 INTERVAL HISTORY: Mr. Stevenson is a 71-year-old male with a known history of recent aortic valve replacement with bovine valve and mitral valve repair due to ( ) rupture and also mediastinal lymph node biopsy showing histoplasmosis, was on itraconazole followed by atrial fibrillation currently on anticoagulation as well as moderate pulmonary hypertension along with CHF with systolic dysfunction. Ejection fraction is 40 to 45% was admitted to the hospital with complaints of short of breath. Currently the patient was found to have acute pulmonary embolism currently on IV heparin. Patient is subtherapeutic INR level on admission. Currently breathing status is much improved now. Patient's previous chest x-ray had worsening CHF. Lasix dose has been increased to 40 mg q.8 hourly. Also patient does have lower extremity edema thought to be due to CHF and venostasis. No signs of infection. Antibiotics have been discontinued per ID. Otherwise no fever, no chills. Overnight the patient is medically much improved now. Pulmonary and ID is on board. Complete review of systems negative except as above. Current medications reviewed. PHYSICAL EXAMINATION: A 71-year-old male lying in the bed awake, alert and oriented x3, appears to be in no apparent distress. VITALS: Blood pressure is 113/69, pulse is 74, respirations 20, temperature afebrile, pulse ox 96% on 6-L high flow nasal cannula. HEENT: Atraumatic, normocephalic. Neck is supple. No JVD. CVS: S1, S2 heard. No murmurs, no gallops. LUNGS: Bilateral air entry is present. Right basal crackles positive, improved on the left side. No wheezing. Nonlabored breathing. ABDOMEN: Soft, nontender. Bowel sounds are present. DIRECTOR OF PRECLINICAL RESEARCH: Awake, alert, oriented x3. No focal neurological deficits. EXTREMITIES: No edema. Pulses palpable bilaterally. No clubbing or cyanosis. PSYCHIATRIC: Cooperative. LABORATORY DATA: WBC 8.5, hemoglobin 7.8, platelets 298, INR 2.0. IMPRESSION: 1. Acute hypoxic respiratory failure secondary to acute pulmonary embolism and also CHF acute exacerbation. 2. Acute on chronic congestive heart failure with systolic dysfunction with ejection fraction 40 to 45%. 3. Lower extremity swelling, no signs of infection, improved with Kieran bandages. Antibiotics have been discontinued. Lower extremity duplex negative. 4. History of histoplasmosis, was on itraconazole therapy. 5. Recent aortic valve replacement with bovine valve and mitral valve repair. 6. Sternal wound dehiscence, status post sternal exploration and debridement with wound closure with bilateral pectoral margin flaps. 7. Moderate pulmonary hypertension. 8. Paroxysmal atrial fibrillation on anticoagulation. INR is therapeutic today. 9. Hyperlipidemia. 10. Hypertension. 11. Osteoarthritis. 12. History of thyroid cancer, status post resection and radiation. 13. Hyperlipidemia. 14. Gastroesophageal reflux disease. 15. Moderate protein calorie malnutrition with albumin level of 2.4. PLAN: Patient will be continued on Coumadin. IV heparin can be discontinued. No need for antibiotics for lower extremity swelling and no signs of infection. Will continue the IV diuresis with 40 mg of Lasix q.8 hourly and monitor the renal function. Shortness of breath is improving at this time. will follow closely. Prognosis is guarded. Further recommendations is based on the clinical course. MTDD
--- NOTE | 2016-12-24 10:20 | PN ---
DATE OF SERVICE: 12/21/16 INTERVAL HISTORY: Mr. Stevenson is a 71-year-old male with a known history of pulmonary hypertension, paroxysmal atrial fibrillation, on anticoagulation with Coumadin. The patient underwent replacement with Bovine valve and mitral valve repair after that and as well as mediastinal biopsy showing histoplasmosis and was on treatment with ( ). The patient brought into the hospital with worsening short of breath. The patient also has history of CHF diastolic dysfunction with ejection fraction 40 to 45% as per recent echocardiogram. The patient was ( ) acute pulmonary embolism and currently on IV heparin. INR subtherapeutic on admission. Otherwise, the patient is still having worsening short of breath as well as worsening CHF. Currently on IV Lasix 40 mg q12 hours. Lower extremity swelling is improved now. No signs of infection noted. Antibiotics have been discontinued as per ID. Otherwise, the patient denied any chest pain. No fever, no chills. No nausea, vomiting or abdominal pain. Genitourinary: Negative. Endocrine: Negative. Musculoskeletal: Negative. All other fourteen point review of systems negative except as above. Current medications reviewed. PHYSICAL EXAMINATION: This is a 71-year-old male lying in the bed, awake, alert and oriented times three. Appears to be in no apparent distress. Vitals : Blood pressure 151/57. Pulse is 76. Respiratory rate 18. Temperature afebrile. Pulse ox 95% on 2 L nasal cannula. HEENT: Atraumatic, normocephalic. NECK: Supple. No JVD. CVS: S1, S2 heard. No murmurs. No gallops. The patient does have sternal wound, it is intact. LUNGS: Bilateral air entry is present. Minimal basal crackles are positive. ( ) Nonlabored breathing. ABDOMEN: Soft, nontender. Bowel sounds are present. ACTUARIAL CLERK: Alert and oriented times three. Able to move all four extremities. EXTREMITIES: No edema. Palpable pulses bilaterally. No clubbing or cyanosis. PSYCHIATRY: Cooperative. LABORATORY DATA: WBC 9.7, hemoglobin 8.2, Platelets 311. Sodium 139, potassium 3.6. Chloride 95, bicarb 33, BUN 28, creatinine 1.38. Blood sugar 113, calcium 5.8. Vitamin D is 29.8. ( )2.4. IMPRESSION: 1. Acute hypoxic respiratory failure secondary to acute pulmonary embolism as well as congestive heart failure exacerbation. 2. Acute on chronic congestive heart failure, diastolic dysfunction, ejection fraction 40 to 45%. 3. History of histoplasmosis status mediastinal biopsy, was on Nitroconozole. 4. Lower extremity cellulitis, unlikely with no signs of infection. Antibiotics have been discontinued. Duplex is negative for any deep vein thrombosis. 5. Recent aortic valve replacement and with Bovine valve as well as mitral valve repair. 6. Sternal wound dehiscence, status post sternal exploration, debridement with bilateral pectoral major flaps. 7. Moderate pulmonary hypertension. 8. Paroxysmal atrial fibrillation, on anticoagulation with Coumadin. Subtherapeutic INR level on admission. 9. Hyperlipidemia. 10.Hypertension. 11. Osteoarthritis. 12. History of thyroid cancer, status post surgery and radiation. 13. Gastroesophageal reflux disease. 14. Hypocalcemia with normal Vitamin D levels. 15. Hypoalbuminemia and moderate protein calorie malnutrition with albumin level of 2.4. PLAN: The patient will be continued on IV Lasix. We will place the patient on fluid restriction and continue current management. Continue with IV heparin. Pulmonary is following the patient. Further recommendations to follow. MTDD
[2016-12-24 12:07] LABS: Prothrombin Time 19.6 sec (9.0-12.0)
[2016-12-24] MEDS: ATORVASTATIN 10 MG TAB PO SCH (20:27)
[2016-12-24] MEDS: ASPIRIN 81 MG CHEW PO SCH (20:28)
[2016-12-24] MEDS: WARFARIN 2.5 MG TAB PO SCH (20:28)
[2016-12-24] MEDS: MULTIVITAMINS, THERA 1 EACH TAB PO SCH (20:28)
[2016-12-24] MEDS: MELATONIN 3 MG TABLET PO SCH (20:30)
[2016-12-25 06:25] LABS: Anisocytosis Slight; Basophils % (A) 0 %; CH 23.2; Eosinophils # (A) 0.1 k/uL (0-0.7); Eosinophils % (A) 1 %; HCT 28.2 % (39.0-53.0); HDW 3.68; HGB 8.4 gm/dL (13.0-17.5); Hypochromasia Marked; Luc # (Auto) 0.15; Luc % (Auto) 2; Lymphocytes # (A) 0.9 k/uL (1.0-4.8); Lymphocytes % (A) 9 %; MCH 23.6 pg (25.0-35.0); MCHC 29.7 g/dL (31.0-37.0); MCV 79.5 fL (80.0-100.0); Mean Platelet Volume 6.7; Microcytosis Slight; Monocytes # (A) 0.5 k/uL (0-1.0); Monocytes % (A) 5 %; Neutrophils # (A) 7.8 k/uL (1.3-7.7); Neutrophils % (A) 83 %; Poikilocytosis Slight; RBC 3.55 m/uL (4.30-5.90); WBC 9.4 k/uL (3.8-10.6); WBC (Perox) 9.35
[2016-12-25] MEDS: MINERAL OIL-WHITE PETROLATUM 120 GM JAR TOPICAL SCH ×2 (06:32→22:31)
[2016-12-25] MEDS: LEVOTHYROXINE 100 MCG TAB PO SCH (06:34)
[2016-12-25] MEDS: CALCIUM CARB-VIT D 500MG-200UN 1 EACH TAB PO SCH ×2 (06:34→17:02)
[2016-12-25] MEDS: LEVOTHYROXINE 75 MCG TAB PO SCH (06:35)
[2016-12-25] MEDS: METOPROLOL TARTRATE 25 MG TAB PO SCH ×3 (06:35→18:11)
[2016-12-25] MEDS: PANTOPRAZOLE 40 MG TABLET PO SCH (06:35)
[2016-12-25] MEDS: FUROSEMIDE 10 MG/ML 4 ML VIAL IV SCH ×4 (06:35→22:32)
[2016-12-25 06:46] LABS: Anion Gap 10 mmol/L; Blood Urea Nitrogen 27 mg/dL (9-20); Carbon Dioxide 35 mmol/L (22-30); Chloride 91 mmol/L (98-107); Glucose 113 mg/dL (74-99); Non-African American GFR(MDRD) >60 (>60 ml/min/1.73 sqM); Potassium 3.7 mmol/L (3.5-5.1); Sodium 136 mmol/L (137-145)
[2016-12-25] MEDS: IPRATROPIUM-ALBUTEROL 3 ML NEB INHALATION SCH ×3 (07:01→20:16)
[2016-12-25 07:04] LABS: Calcium 6.1 mg/dL (8.4-10.2)
[2016-12-25 08:14] LABS: INR 2.5 (<1.1); Prothrombin Time 24.2 sec (9.0-12.0)
[2016-12-25] MEDS: AMIODARONE 200 MG TAB PO SCH (09:11)
[2016-12-25] MEDS: DIGOXIN 125 MCG TAB PO SCH (09:11)
--- NOTE | 2016-12-25 12:01 | PN ---
DATE OF SERVICE: 12/22/2016 INTERVAL HISTORY: Mr. Stevenson is a 71-year-old male with known history of moderate pulmonary hypertension, recent aortic valve replacement and mitral valve repair as well as histoplasmosis, status post mediastinal lymph node biopsy and subsequent atrial fibrillation who came into the hospital with worsening short of breath. Currently patient was found to have bilateral pulmonary embolism, currently on IV drip. The patient does have CHF with systolic dysfunction with ejection fraction of 40 to 45% as per recent echocardiogram. Otherwise the patient is continued to be on IV Lasix and chest x -ray showed worsening change of heart failure. The patient otherwise denies any worsening shortness of breath. No nausea, no vomiting or abdominal pain. Left swelling is much improved now. REVIEW OF SYSTEMS: CONSTITUTIONAL: No fever, no chills. RESPIRATORY: No cough or sputum production. CARDIOVASCULAR: No chest pain or short of breath. ABDOMEN: No nausea, vomiting or abdominal pain. GENITOURINARY: Negative. MUSCULOSKELETAL: Negative. ENDOCRINE: Negative. PSYCHIATRY: Negative. SKIN: Negative. All other fourteen point review of systems negative except as above. CURRENT MEDICATIONS: Reviewed. PHYSICAL EXAMINATION: A 71-year-old male sitting on bed comfortable, awake, alert, oriented x3, appears to be in no apparent distress. VITALS: Blood pressure is 103/69, pulse is 72, respirations 20, temperature afebrile, pulse ox 95% on 6-L high-flow nasal cannula. HEENT: Atraumatic, normocephalic. Neck is supple. No JVD. CVS: S1, S2 heard. No murmurs, no gallop, no rub. LUNGS: Bilateral air entry is present. Basal crackles are positive. Nonlabored breathing. ABDOMEN: Soft, nontender. Bowel sounds are present. POLICE DETENTION ATTENDANT: Awake, alert, oriented x3. No focal deficits. EXTREMITIES: The patient does have 2+ pedal edema. Pulses are palpable bilaterally. No clubbing or cyanosis. PSYCHIATRIC: No cooperative. LABORATORY DATA: WBC 8.2, hemoglobin 7.7, platelets 306, MCV 78.6. IMPRESSION: 1. Acute hypoxic respiratory failure secondary to acute congestive heart failure exacerbation as well as acute pulmonary embolism. 2. Acute on chronic congestive heart failure with systolic dysfunction. Ejection fraction 40 to 45%. 3. History of histoplasmosis, patient was on itraconazole. 4. Bilateral lower extremity swelling, possibly chronic venostasis. No signs of infection noted. Antibiotics have been discontinued. 5. Recent aortic valve replacement with bovine valve and mitral valve repair. 6. Sternal wound dehiscence, status post sternal exploration and debridement with wound closure with bilateral pectoralis margin flaps. 7. Moderate pulmonary hypertension. 8. Proximal atrial fibrillation, on anticoagulation with Coumadin. 9. Hyperlipidemia. 10. Hypertension. 11. Osteoarthritis. 12. History of thyroid cancer status post surgery and radiation. 13. Gastroesophageal reflux disease. 14. Moderate protein calorie malnutrition with albumin of 2.4. DISCUSSION AND PLAN: Chest x-ray showed worsening of CHF findings. Will increase the Lasix to q.8 hourly, 40 mg IV. Continue to monitor renal function. Continue with the heparin at this time. Follow closely. Further recommendations based on clinical course. Pulmonary and ID are following the patient. MTDD
[2016-12-25] MEDS: HEPARIN SODIUM,PORCINE/D5W PMX 25,000 UNIT in DEXTROSE/WATER 1 500ML.BAG IV SCH (12:43)
--- NOTE | 2016-12-25 15:34 | P.PN ---
Subjective Principal diagnosis: Shortness of breath This is a 71-year-old male well known to ID service who came in the hospital on September 23 and underwent a JAYDE and heart catheterization showing a ruptured chordae tendonae, mitral regurgitation, moderate pulmonary hypertension , with history of paroxysmal atrial fibrillation and heart failure. 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 With this the patient was initiated to itraconazole. He however developed atrial fibrillation. Because of this he was initiated to amiodarone. The dose of itraconazole was reduced by 50%. There is no evidence of alteration of the QT interval while he was in hospital. He eventually was discharged home. It is related that he was not able to obtain the itraconazole. In this is going to be addressed in the coming days. However he returned to [facility] emergency center due to shortness of breath and was hospitalized October 06 through October 30 at which time he required intubation and mechanical ventilation. He was successfully extubated. He was treated for dehiscence of sternal wires requiring sternal exploration, debridement and wound closure with bilateral pectoralis major myocutaneous advanced flaps. He also required chest tube placement for left pleural effusion and right thoracentesis for right pleural effusion with drainage of 1.5 L of dark red tinged fluid. Muscle flap procedure was done on October 15. Patient was stabilized and then transferred to [facility] for inpatient rehab under the care of Dr. Christina. He developed increasing shortness of breath and edema and was eventually transferred to the intensive care unit where he was found to be in atrial fibrillation with rapid ventricular response and acute systolic heart failure and underwent thoracentesis with removal of 1.6 L on the right chest. Eventually his status improved and after a stay with Dr. Reyes within the inpatient rehab unit he was transferred to the [facility] for ongoing physical therapy. He then developed some increasing shortness of breath and lower extremity edema. Duplex was performed without evidence of deep venous thrombosis. Because of patient was quite short of breath a CT angiogram was performed. Evidence of the pulmonary embolus. He has not been heparinized and feeling slightly better. He continues to have dyspnea on exertion and some orthopnea but is not complaining of PND. He is not having significant cough or sputum production and no hemoptysis. No bleeding in other sites. Feels better today had some SOB is now improved. Has occasional cough Looks forward to going to the [facility] on Tuesday. Objective - Vital Signs Vital signs: Vital Signs Temp 97.3 F L 12/25/16 11:58 Pulse 80 12/25/16 14:31 Resp 20 12/25/16 11:58 BP 112/70 12/25/16 11:58 Pulse Ox 98 12/25/16 12:00 Intake & Output 12/24/16 12/25/16 12/25/16 18:59 06:59 18:59 Intake Total 500 676.245 Output Total 600 800 475 Balance -600 -300 201.245 Weight 112.9 kg 113.2 kg Intake: IV 344 0.9 80 Heparin 264 Intake, IV Titration 500 332.245 Amount Heparin Sodium,Porcine/ 500 332.245 D5w Pmx 25,000 unit In Dextrose/Water 1 500ml. bag @ 18 UNITS/KG/HR 40. 82 mls/hr IV .[id number] [facility] Rx#:[id number] Output: Urine 600 800 475 Other: Voiding Method Urinal Urinal Urinal # Voids 1 1 - Exam This is a 71-year-old male. He appears comfortable and is able to sit up without significant difficulty. Relates that his shortness of breath is improved. HEENT: Head is atraumatic, normocephalic. Pupils equal, round. Sclerae is anicteric. Conjunctiva slightly pale. Mucous membranes of the mouth are dry. No thrush noted. NECK: Supple. No JVD. No lymphadenopathy. No thyromegaly. LUNGS: There is symmetrical air entry. There is evidence of a few basilar crackles. Scattered expiratory wheezes. HEART: Irregular with no murmur the sternal wound is now completely healed. He has evidence of the prior pectoralis muscle flap. There is evidence of some chronic skin color change is actually improving over time. The site is not warm. There are no open lesions or drainage. ABDOMEN: Distinctly distended. Bowel sounds are normal. Organomegaly is not detected. Abdomen is nontender. EXTREMITIES: +3 bilateral pedal edema. The edema is actually improved from the last visit. He has chronic skin color changes to the bilateral lower extremities. [place] sites are without purulence or difficulty. NEUROLOGICAL: Awake and alert. No acute gross focal sensory motor deficits except generalized weakness. Vocal quality improved - Labs CBC & Chem 7: 12/25/16 05:41 12/25/16 05:41 Labs: Abnormal Lab Results - Last 24 Hours (Table) 12/25/16 12/25/16 12/25/16 Range/Units 05:41 05:41 05:41 RBC 3.55 L (4.30-5.90) m/uL Hgb 8.4 L (13.0-17.5) gm/dL Hct 28.2 L (39.0-53.0) % MCV 79.5 L (80.0-100.0) fL MCH 23.6 L (25.0-35.0) pg MCHC 29.7 L (31.0-37.0) g/dL RDW 19.0 H (11.5-15.5) % Neutrophils # 7.8 H (1.3-7.7) k/uL Lymphocytes # 0.9 L (1.0-4.8) k/uL PT (9.0-12.0) sec APTT 76.6 H (22.0-30.0) sec Sodium 136 L (137-145) mmol/L Chloride 91 L (98-107) mmol/L Carbon Dioxide 35 H (22-30) mmol/L BUN 27 H (9-20) mg/dL Glucose 113 H (74-99) mg/dL Calcium 6.1 L* (8.4-10.2) mg/dL 12/25/16 Range/Units 05:41 RBC (4.30-5.90) m/uL Hgb (13.0-17.5) gm/dL Hct (39.0-53.0) % MCV (80.0-100.0) fL MCH (25.0-35.0) pg MCHC (31.0-37.0) g/dL RDW (11.5-15.5) % Neutrophils # (1.3-7.7) k/uL Lymphocytes # (1.0-4.8) k/uL PT 24.2 H (9.0-12.0) sec APTT (22.0-30.0) sec Sodium (137-145) mmol/L Chloride (98-107) mmol/L Carbon Dioxide (22-30) mmol/L BUN (9-20) mg/dL Glucose (74-99) mg/dL Calcium (8.4-10.2) mg/dL Laboratory Results WBC 9.4 k/uL (3.8-10.6) 12/25/16 05:41 RBC 3.55 m/uL (4.30-5.90) L 12/25/16 05:41 Hgb 8.4 gm/dL (13.0-17.5) L 12/25/16 05:41 Hct 28.2 % (39.0-53.0) L 12/25/16 05:41 MCV 79.5 fL (80.0-100.0) L 12/25/16 05:41 MCH 23.6 pg (25.0-35.0) L 12/25/16 05:41 MCHC 29.7 g/dL (31.0-37.0) L 12/25/16 05:41 RDW 19.0 % (11.5-15.5) H 12/25/16 05:41 Plt Count 307 k/uL (150-450) 12/25/16 05:41 Neutrophils % 83 % 12/25/16 05:41 Lymphocytes % 9 % 12/25/16 05:41 Monocytes % 5 % 12/25/16 05:41 Eosinophils % 1 % 12/25/16 05:41 Basophils % 0 % 12/25/16 05:41 Neutrophils # 7.8 k/uL (1.3-7.7) H 12/25/16 05:41 Lymphocytes # 0.9 k/uL (1.0-4.8) L 12/25/16 05:41 Monocytes # 0.5 k/uL (0-1.0) 12/25/16 05:41 Eosinophils # 0.1 k/uL (0-0.7) 12/25/16 05:41 Basophils # 0.0 k/uL (0-0.2) 12/25/16 05:41 Hypochromasia Marked 12/25/16 05:41 Poikilocytosis Slight 12/25/16 05:41 Anisocytosis Slight 12/25/16 05:41 Microcytosis Slight 12/25/16 05:41 PT 24.2 sec (9.0-12.0) H 12/25/16 05:41 INR 2.5 (<1.1) 12/25/16 05:41 APTT 76.6 sec (22.0-30.0) H 12/25/16 05:41 D-Dimer 8.41 mg/L FEU (<0.60) H 12/17/16 21:37 Sodium 136 mmol/L (137-145) L 12/25/16 05:41 Potassium 3.7 mmol/L (3.5-5.1) 12/25/16 05:41 Chloride 91 mmol/L (98-107) L 12/25/16 05:41 Carbon Dioxide 35 mmol/L (22-30) H 12/25/16 05:41 Anion Gap 10 mmol/L 12/25/16 05:41 BUN 27 mg/dL (9-20) H 12/25/16 05:41 Creatinine 0.99 mg/dL (0.66-1.25) 12/25/16 05:41 Est GFR (MDRD) Af Amer >60 (>60 ml/min/1.73 sqM) 12/25/16 05:41 Est GFR (MDRD) Non-Af >60 (>60 ml/min/1.73 sqM) 12/25/16 05:41 Glucose 113 mg/dL (74-99) H 12/25/16 05:41 Plasma Lactic Acid Samir 1.2 mmol/L (0.7-2.0) 12/18/16 03:42 Calcium 6.1 mg/dL (8.4-10.2) L* 12/25/16 05:41 Magnesium 1.9 mg/dL (1.6-2.3) 12/17/16 21:37 Total Bilirubin 0.7 mg/dL (0.2-1.3) 12/17/16 21:37 AST 37 U/L (17-59) 12/17/16 21:37 ALT 33 U/L (21-72) 12/17/16 21:37 Alkaline Phosphatase 81 U/L (38-126) 12/17/16 21:37 Total Creatine Kinase 42 U/L (55-170) L 12/17/16 21:37 CK-MB (CK-2) 2.2 ng/mL (0.0-2.4) 12/17/16 21:37 CK-MB (CK-2) Rel Index 5.2 12/17/16 21:37 Troponin I 0.013 ng/mL (0.000-0.034) 12/17/16 21:37 NT-Pro-B Natriuret Pep 4950 pg/mL 12/17/16 21:37 Total Protein 6.3 g/dL (6.3-8.2) 12/17/16 21:37 Albumin 2.4 g/dL (3.5-5.0) L 12/17/16 21:37 Vitamin D 25-Hydroxy 29.8 ng/mL (30.0-100.0) L 12/21/16 05:25 Urine Color Yellow 12/17/16 23:00 Urine Appearance Clear (Clear) 12/17/16 23:00 Urine pH 6.0 (5.0-8.0) 12/17/16 23:00 Ur Specific [place] 1.011 (1.001-1.035) 12/17/16 23:00 Urine Protein Negative (Negative) 12/17/16 23:00 Urine Glucose (UA) Negative (Negative) 12/17/16 23:00 Urine Ketones Negative (Negative) 12/17/16 23:00 Urine Blood Negative (Negative) 12/17/16 23:00 Urine Nitrite Negative (Negative) 12/17/16 23:00 Urine Bilirubin Negative (Negative) 12/17/16 23:00 Urine Urobilinogen 3.0 mg/dL (<2.0) 12/17/16 23:00 Ur Leukocyte Esterase Negative (Negative) 12/17/16 23:00 Microbiology 12/17/16 21:37 Blood Blood Culture - Final No Growth after 144 hours Assessment and Plan (1) Pulmonary embolism Narrative/Plan: Pleasant 71-year-old male is a very recent extensive past medical history regarding his cardiovascular disease. His aortic valve replacement and mitral valve repair in the many ongoing complications he has had since the procedures. He presented hospital with increasing lower extremity edema but profoundly having shortness of breath. He had a CT antigram showing evidence of a new pulmonary embolus that have been found. He is now receiving anticoagulation. With this he started to feel somewhat better. Fluctuates have been wrapped and the extensive edema is much improved and noted admission. They are not tender. The chronic erythema is about at baseline. There is no ascending erythema. No evidence of any significant lymphadenopathy. Patient does not appear to have infection in the limbs at this time. It appears a pulmonary embolus caused worsening lower extremity edema that is now improving. Continue with elevation and wraps. Skin moisturization continues with Eucerin. Antibiotic therapy is discontinued. At admission there was no leukocytosis and no fevers. He's had a mild leukocytosis which has now resolved. But does not appear to have underlying infection at this time. Some worsening CHF has been treated with improvement. Does feel better today. Looking forward to finishing his therapy at [facility]. Status: Acute (2) Atrial fibrillation with RVR Status: Acute (3) Status post aortic valve replacement Status: Acute (4) Status post mitral valve repair Status: Acute
[2016-12-25] MEDS: ATORVASTATIN 10 MG TAB PO SCH (19:53)
[2016-12-25] MEDS: MELATONIN 3 MG TABLET PO SCH (19:54)
[2016-12-25] MEDS: WARFARIN 2.5 MG TAB PO SCH (19:54)
[2016-12-25] MEDS: ASPIRIN 81 MG CHEW PO SCH (19:54)
[2016-12-25] MEDS: MULTIVITAMINS, THERA 1 EACH TAB PO SCH (19:54)
--- NOTE | 2016-12-25 23:00 | P.PN ---
Subjective Mr. 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 Patient had chest x-ray in the ER that showed unchanged cardiomegaly with central pulmonary vascular congestion and stable right base opacity and moderate sized right pleural effusion and CT angiogram revealed acute pulmonary emboli in the left lower lobe, subsegmental pulmonary arteries. There is posterior right upper segmental pulmonary embolus , possibly chronic. The patient was subtherapeutic with Coumadin with INR of 1.7, and the patient was started on Heparin drip. On 12/24/16 -Pt denies having any complains. He states his SOB is better than when he came in. ROS - CONSTITUTIONAL: No fever. No chills. Patient does have weakness. RESPIRATORY: Patient denies any cough or sputum production. The patient does have short of breath. CARDIOVASCULAR: No chest pain. Patient does have short of breath. The patient does have significant leg swelling. GENITOURINARY: Negative. CXR from this morning showing worsening CHF. Objective - Vital Signs Vital signs: Vital Signs Temp 95.9 F L 12/24/16 08:00 Pulse 82 12/24/16 19:36 Resp 16 12/24/16 13:20 BP 105/66 12/24/16 16:00 Pulse Ox 98 12/24/16 16:00 Intake & Output 12/24/16 12/24/16 12/25/16 06:59 18:59 06:59 Intake Total 500 Output Total 1300 600 Balance -800 -600 Weight 112.9 kg 112.9 kg Intake: Intake, IV Titration 500 Amount Heparin Sodium,Porcine/ 500 D5w Pmx 25,000 unit In Dextrose/Water 1 500ml. bag @ 18 UNITS/KG/HR 40. 82 mls/hr IV .[id number] [facility] Rx#:[id number] Output: Urine 1300 600 Other: Voiding Method Urinal Urinal # Voids 1 1 - Exam HEENT: Atraumatic, normocephalic. Neck is supple. No JVD. CVS: S1, S2 heard. Sternal flap is intact. No drainage. No chest wall tenderness. LUNGS: Bilateral air entry is present. Bilateral rhonchi positive. Expiratory wheezing positive and nonlabored breathing. ABDOMEN: Soft, nontender. Bowel sounds present. CENTRAL NERVOUS SYSTEM: Awake, alert, oriented x3. No focal deficits. EXTREMITIES: Bilateral lower extremity edema 3+ and erythema as well up to the knees. Pulses palpable. No clubbing or cyanosis. PSYCHIATRIC: Cooperative. - Labs CBC & Chem 7: 12/24/16 05:34 12/24/16 05:34 Labs: Abnormal Lab Results - Last 24 Hours (Table) 12/24/16 12/24/16 12/24/16 Range/Units 05:34 05:34 08:48 RBC 3.56 L (4.30-5.90) m/uL Hgb 8.5 L (13.0-17.5) gm/dL Hct 28.7 L (39.0-53.0) % MCH 23.9 L (25.0-35.0) pg MCHC 29.6 L (31.0-37.0) g/dL RDW 18.8 H (11.5-15.5) % Neutrophils # 8.0 H (1.3-7.7) k/uL Lymphocytes # 0.6 L (1.0-4.8) k/uL PT (9.0-12.0) sec APTT 58.6 H (22.0-30.0) sec Chloride 94 L (98-107) mmol/L Carbon Dioxide 35 H (22-30) mmol/L BUN 26 H (9-20) mg/dL Calcium 6.1 L* (8.4-10.2) mg/dL 12/24/16 Range/Units 08:48 RBC (4.30-5.90) m/uL Hgb (13.0-17.5) gm/dL Hct (39.0-53.0) % MCH (25.0-35.0) pg MCHC (31.0-37.0) g/dL RDW (11.5-15.5) % Neutrophils # (1.3-7.7) k/uL Lymphocytes # (1.0-4.8) k/uL PT 19.6 H (9.0-12.0) sec APTT (22.0-30.0) sec Chloride (98-107) mmol/L Carbon Dioxide (22-30) mmol/L BUN (9-20) mg/dL Calcium (8.4-10.2) mg/dL Microbiology - Last 24 Hours (Table) 12/17/16 21:37 Blood Culture - Final Blood No Growth after 144 hours Assessment and Plan Plan: 1. Acute hypoxic respiratory failure secondary to acute pulmonary emboli as well as acute congestive heart failure exacerbation. 2. Acute on chronic congestive heart failure with systolic dysfunction and ejection fraction 40-45%. 3. Histoplasmosis status post mediastinal lymph node biopsy, currently on antibiotics in the form of cefazolin. 4. Recent aortic valve replacement with bovine valve and mitral valve with mediastinal lymph node biopsy. 5. Sternal dehiscence status post sternal exploration and debridement with wound closure with bilateral pectoralis muscle flaps. 6. Mild pulmonary hypertension. 7. Paroxysmal atrial fibrillation, on anticoagulation with Coumadin. Subtherapeutic INR level. 8. Hyperlipidemia. 9. Hypertension. 10. Osteoarthritis. 11. History of thyroid cancer status post surgery/radiation. 12. Hyperlipidemia. 13. Moderate pulmonary hypertension. 14. Gastroesophageal reflux disease. 15. Moderate protein calorie malnutrition with albumin level of 2.4. DISCUSSION AND PLAN: Patient will be continued on IV heparin until INR therapeutic and continue the Coumadin dosing. As the CXR shows increased vascular congestion, will increase the dose of Lasix 40 mg IV from Q8 to Q6 hrs. He was initially on Vancomycin and later Cefazolin for possible LE cellulitis. ID DR. montenegro evaluated the pt and d/c all his Abx. Further recommendations based on clinical course.
--- NOTE | 2016-12-25 23:06 | P.PN ---
Subjective Mr. 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 Patient had chest x-ray in the ER that showed unchanged cardiomegaly with central pulmonary vascular congestion and stable right base opacity and moderate sized right pleural effusion and CT angiogram revealed acute pulmonary emboli in the left lower lobe, subsegmental pulmonary arteries. There is posterior right upper segmental pulmonary embolus , possibly chronic. The patient was subtherapeutic with Coumadin with INR of 1.7, and the patient was started on Heparin drip. On 12/24/16 -Pt denies having any complains. He states his SOB is better than when he came in. On 12/25/16 - pt still has SOB and his edema is still the same, not much improvement since yesterday. ROS - CONSTITUTIONAL: No fever. No chills. Patient does have weakness. RESPIRATORY: Patient denies any cough or sputum production. The patient does have short of breath. CARDIOVASCULAR: No chest pain. Patient does have short of breath. The patient does have significant leg swelling. GENITOURINARY: Negative. CXR from 12/24/16 showing worsening CHF. Objective - Vital Signs Vital signs: Vital Signs Temp 97.3 F L 12/25/16 11:58 Pulse 80 12/25/16 14:31 Resp 20 12/25/16 11:58 BP 112/70 12/25/16 11:58 Pulse Ox 98 12/25/16 12:00 Intake & Output 12/24/16 12/25/16 12/25/16 18:59 06:59 18:59 Intake Total 500 676.245 Output Total 600 800 475 Balance -600 -300 201.245 Weight 112.9 kg 113.2 kg Intake: IV 344 0.9 80 Heparin 264 Intake, IV Titration 500 332.245 Amount Heparin Sodium,Porcine/ 500 332.245 D5w Pmx 25,000 unit In Dextrose/Water 1 500ml. bag @ 18 UNITS/KG/HR 40. 82 mls/hr IV .[id number] [facility] Rx#:[id number] Output: Urine 600 800 475 Other: Voiding Method Urinal Urinal Urinal # Voids 1 1 - Exam HEENT: Atraumatic, normocephalic. Neck is supple. No JVD. CVS: S1, S2 ,Pansystolic murmur and Diastolic murmur. heard. Sternal flap is intact. No drainage. No chest wall tenderness. LUNGS: Bilateral air entry is present. Bilateral rhonchi positive. No wheezing and nonlabored breathing. ABDOMEN: Soft, nontender. Bowel sounds present. CENTRAL NERVOUS SYSTEM: Awake, alert, oriented x3. No focal deficits. EXTREMITIES: Bilateral lower extremity edema 3+ and erythema as well up to the knees. Pulses palpable. No clubbing or cyanosis. PSYCHIATRIC: Cooperative. - Labs CBC & Chem 7: 12/25/16 05:41 12/25/16 05:41 Labs: Abnormal Lab Results - Last 24 Hours (Table) 12/25/16 12/25/16 12/25/16 Range/Units 05:41 05:41 05:41 RBC 3.55 L (4.30-5.90) m/uL Hgb 8.4 L (13.0-17.5) gm/dL Hct 28.2 L (39.0-53.0) % MCV 79.5 L (80.0-100.0) fL MCH 23.6 L (25.0-35.0) pg MCHC 29.7 L (31.0-37.0) g/dL RDW 19.0 H (11.5-15.5) % Neutrophils # 7.8 H (1.3-7.7) k/uL Lymphocytes # 0.9 L (1.0-4.8) k/uL PT (9.0-12.0) sec APTT 76.6 H (22.0-30.0) sec Sodium 136 L (137-145) mmol/L Chloride 91 L (98-107) mmol/L Carbon Dioxide 35 H (22-30) mmol/L BUN 27 H (9-20) mg/dL Glucose 113 H (74-99) mg/dL Calcium 6.1 L* (8.4-10.2) mg/dL 12/25/16 Range/Units 05:41 RBC (4.30-5.90) m/uL Hgb (13.0-17.5) gm/dL Hct (39.0-53.0) % MCV (80.0-100.0) fL MCH (25.0-35.0) pg MCHC (31.0-37.0) g/dL RDW (11.5-15.5) % Neutrophils # (1.3-7.7) k/uL Lymphocytes # (1.0-4.8) k/uL PT 24.2 H (9.0-12.0) sec APTT (22.0-30.0) sec Sodium (137-145) mmol/L Chloride (98-107) mmol/L Carbon Dioxide (22-30) mmol/L BUN (9-20) mg/dL Glucose (74-99) mg/dL Calcium (8.4-10.2) mg/dL Assessment and Plan Plan: 1. Acute hypoxic respiratory failure secondary to acute pulmonary emboli as well as acute congestive heart failure exacerbation. 2. Acute on chronic congestive heart failure with systolic dysfunction and ejection fraction 40-45%. 3. 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 Recent aortic valve replacement with bovine valve and mitral valve with mediastinal lymph node biopsy. 5. Sternal dehiscence status post sternal exploration and debridement with wound closure with bilateral pectoralis muscle flaps. 6. Mild pulmonary hypertension. 7. Paroxysmal atrial fibrillation, on anticoagulation with Coumadin. Subtherapeutic INR level. 8. Hyperlipidemia. 9. Hypertension. 10. Osteoarthritis. 11. History of thyroid cancer status post surgery/radiation. 12. Hyperlipidemia. 13. Moderate pulmonary hypertension. 14. Gastroesophageal reflux disease. 15. Moderate protein calorie malnutrition with albumin level of 2.4. DISCUSSION AND PLAN: Patient's INR is therapeutic so heparin is d/c and continue the Coumadin dosing. As the CXR shows increased vascular congestion, will c/w Lasix 40 mg IV Q6 hrs. He was initially on Vancomycin and later Cefazolin for possible LE cellulitis. ID DR. montenegro evaluated the pt and d/c all his Abx. Cardiology has been consulted today. Further recommendations based on clinical course.
[2016-12-26] MEDS: LEVOTHYROXINE 75 MCG TAB PO SCH (06:39)
[2016-12-26] MEDS: LEVOTHYROXINE 100 MCG TAB PO SCH (06:39)
[2016-12-26] MEDS: FUROSEMIDE 10 MG/ML 4 ML VIAL IV SCH ×4 (06:39→23:09)
[2016-12-26] MEDS: CALCIUM CARB-VIT D 500MG-200UN 1 EACH TAB PO SCH ×2 (06:40→17:11)
[2016-12-26] MEDS: PANTOPRAZOLE 40 MG TABLET PO SCH (06:40)
[2016-12-26] MEDS: MINERAL OIL-WHITE PETROLATUM 120 GM JAR TOPICAL SCH ×2 (06:40→20:36)
[2016-12-26] MEDS: METOPROLOL TARTRATE 25 MG TAB PO SCH ×3 (06:40→18:25)
[2016-12-26 07:18] LABS: Blood Urea Nitrogen 26 mg/dL (9-20); Chloride 90 mmol/L (98-107); Glucose 88 mg/dL (74-99); Non-African American GFR(MDRD) >60 (>60 ml/min/1.73 sqM); Potassium 3.7 mmol/L (3.5-5.1); Sodium 138 mmol/L (137-145)
[2016-12-26 07:23] LABS: Anion Gap 8 mmol/L
[2016-12-26 07:37] LABS: Anisocytosis Slight; Basophils # (A) 0.1 k/uL (0-0.2); Basophils % (A) 1 %; CH 22.8; CHCM 28.6; Eosinophils # (A) 0.1 k/uL (0-0.7); Eosinophils % (A) 2 %; HCT 26.9 % (39.0-53.0); HDW 3.75; Hypochromasia Marked; Luc # (Auto) 0.14; Luc % (Auto) 2; Lymphocytes # (A) 0.6 k/uL (1.0-4.8); Lymphocytes % (A) 7 %; MCH 23.5 pg (25.0-35.0); MCHC 29.7 g/dL (31.0-37.0); MCV 79.4 fL (80.0-100.0); Mean Platelet Volume 7.1; Microcytosis Slight; Monocytes # (A) 0.5 k/uL (0-1.0); Monocytes % (A) 6 %; Neutrophils # (A) 6.9 k/uL (1.3-7.7); Neutrophils % (A) 84 %; Poikilocytosis Slight; RBC 3.38 m/uL (4.30-5.90); RDW 18.7 % (11.5-15.5); WBC 8.3 k/uL (3.8-10.6); WBC (Perox) 8.37
[2016-12-26 07:43] LABS: Calcium 6.2 mg/dL (8.4-10.2); Carbon Dioxide 40 mmol/L (22-30)
[2016-12-26 08:18] LABS: INR 2.7 (<1.1)
[2016-12-26] MEDS: IPRATROPIUM-ALBUTEROL 3 ML NEB INHALATION SCH ×3 (08:28→19:35)
[2016-12-26] MEDS: AMIODARONE 200 MG TAB PO SCH (08:54)
[2016-12-26] MEDS: LORazepam 0.5 MG TAB PO PRN (15:48)
--- NOTE | 2016-12-26 16:48 | P.CRDCN ---
History of Present Illness Consult date: 12/26/16 History of present illness: 71-year-old gentleman with history of aortic valve replacement and also mitral valve repair with prolonged, recurrent hospital stays was recently admitted [facility] with complaints of increasing shortness of breath and evidence of both CHF and pulmonary emboli. Patient's INR was subtherapeutic. Patient has been on heparin. He is also on IV Lasix. It appears that patient is feeling better. Patient recently had a cardioversion and seemed to be maintaining sinus rhythm. I'm going to cut back the dose of the amiodarone to 200 mg once daily. I'm also going to get digoxin level. I will add small dose of lisinopril and also all lactone. Further examination depend upon the clinical course. We'll follow elect lites closely. Patient claims overall is feeling better. However, his prognosis still guarded. Old charts were reviewed and patient was interviewed Review of Systems As per the chart Past Medical History Past Medical History: Atrial Fibrillation, Cancer, Heart Failure, Hyperlipidemia , Osteoarthritis (OA), Thyroid Disorder Additional Past Medical History / Comment(s): Current mediastinal lymphadenopathy with histoplasmosis being tx with ABX by Dr. Ramos, THYROID CANCER with surgery/radiation, varicose veins, rheumatic fever, paroxysmal atrial fibrillation, aortic valve insufficiency and mitral valve regurgitation- recent valvular surgery, moderate pulmonary hypertension History of Any Multi-Drug Resistant Organisms: None Reported Past Surgical History: Cardiac Valve Replacement, Heart Catheterization, Joint Replacement Additional Past Surgical History / Comment(s): thyroidectomy, total left knee replacement, 08/2016cardiac cath/fabiola, 09/29/16 aortic valve replacement with bovine valve, mitral valve repair, mediastinal lymph node biopsy, colonoscopies/ polypectomy-benign. Past Anesthesia/Blood Transfusion Reactions: No Reported Reaction Past Psychological History: No Psychological Hx Reported Smoking Status: Former smoker Past Alcohol Use History: Rare Past Drug Use History: None Reported - Past Family History Father Family Medical History: Coronary Artery Disease (CAD) Additional Family Medical History / Comment(s): Father at 76yrs from heart problems. Mother Family Medical History: No Reported History Additional Family Medical History / Comment(s): Mother at the age of 92 yrs. She had varicose veins Brother(s) Family Medical History: Cancer Additional Family Medical History / Comment(s): LIVER CA. BLOOD CLOT. Medications and Allergies Home Medications Medication Instructions Recorded Confirmed Type Aspirin 81 mg PO HS 11/14/14 12/17/16 History Multivitamins, Thera [Multivitamin 1 tab PO HS 10/06/16 12/17/16 History (formulary)] Acetaminophen Tab [Tylenol Tab] 650 mg PO Q4H PRN 12/17/16 12/17/16 History Atorvastatin Calcium [Lipitor] 10 mg PO HS@199912/17/16 12/17/16 History Digoxin [Lanoxin] 125 mcg PO Q48H 12/17/16 12/17/16 History Furosemide [Lasix] 40 mg PO BID 12/17/16 12/17/16 History HYDROcodone/APAP 10-325MG [Lowell 1 tab PO Q4HR PRN 12/17/16 12/17/16 History 10-325] Ipratropium-Albuterol Nebulize 3 ml INHALATION RT-Q8H 12/17/16 12/17/16 History [Duoneb 0.5 mg-3 mg/3 ml Soln] LORazepam [Ativan] 0.25 mg PO Q6H PRN 12/17/16 12/17/16 History Levothyroxine Sodium [Synthroid] 175 mcg PO DAILY@0500 12/17/16 12/17/16 History Melatonin 3 mg PO HS@199912/17/16 12/17/16 History Metoprolol Tartrate [Lopressor] 25 mg PO TID@0700,1300,1900 12/17/16 12/17/16 History Minerin Lotion(Emollient) 1 applic TOPICAL BID@0500,199912/17/16 12/17/16 History Sennosides [Senna] 8.6 mg PO BID PRN 12/17/16 12/17/16 History Sulfamethox-Tmp 800-160Mg [Bactrim 1 tab PO BID 12/17/16 12/17/16 History DS 800-160 mg] Warfarin [Coumadin] 1 mg PO HS 12/17/16 12/17/16 History Warfarin [Coumadin] 2.5 mg PO HS 12/17/16 12/17/16 History Allergies Allergy/AdvReac Type Severity Reaction Status Date / Time No Known Allergies Allergy Verified 12/17/16 22:18 Physical Exam Vitals: Vital Signs Temp Pulse Pulse Resp BP BP Pulse Ox 12/26/16 15:43 97.9 F 83 20 114/70 95 12/26/16 13:17 80 12/26/16 13:08 80 12/26/16 12:00 97.5 F L 75 20 103/68 96 12/26/16 08:52 97.2 F L 81 20 89/54 123/61 94 L 12/26/16 08:41 80 12/26/16 08:28 80 12/26/16 04:00 96.9 F L 85 17 95/59 85 L 12/25/16 23:44 97.4 F L 78 18 102/64 96 12/25/16 20:29 80 12/25/16 20:17 80 94 L 12/25/16 19:48 97.2 F L 85 22 106/63 94 L Intake and Output 12/26/16 12/26/16 12/26/16 06:59 14:59 22:59 Intake Total 360 Output Total 800 400 Balance -800 -40 Intake: Oral 360 Output: Urine 800 400 Other: Voiding Method Urinal Urinal Urinal Weight 113.6 kg GENERAL EXAM: Patient is alert and oriented and doesn't appear to be in any acute distress HEENT: Normocephalic. Normal reaction of pupils, equal size, normal range of extraocular motion. No erythema or exudates in the throat. NECK: No masses, no nuchal rigidity. CHEST: No chest wall deformity. LUNGS: Diminished breath sounds with scattered rhonchi HEART: S1 and S2 normal with no audible mumurs or gallops. Regular rhythm, ABDOMEN: No hepatosplenomegaly, normal bowel sounds, no guarding or rigidity. SKIN: No rashes CENTRAL NERVOUS SYSTEM: No focal deficits. EXTREMITIES: Significant bilateral edema and cellulitis Results 12/26/16 05:44 12/26/16 05:44 Coagulation 12/26/16 Range/Units 05:44 PT 26.0 H (9.0-12.0) sec CBC 12/26/16 Range/Units 05:44 WBC 8.3 (3.8-10.6) k/uL RBC 3.38 L (4.30-5.90) m/uL Hgb 8.0 L (13.0-17.5) gm/dL Hct 26.9 L (39.0-53.0) % Plt Count 307 (150-450) k/uL Comprehensive Metabolic Panel 12/26/16 Range/Units 05:44 Sodium 138 (137-145) mmol/L Potassium 3.7 (3.5-5.1) mmol/L Chloride 90 L (98-107) mmol/L Carbon Dioxide 40 H* (22-30) mmol/L BUN 26 H (9-20) mg/dL Creatinine 1.07 (0.66-1.25) mg/dL Glucose 88 (74-99) mg/dL Calcium 6.2 L* (8.4-10.2) mg/dL Current Medications Generic Name Dose Route Start Last Admin Trade Name Freq PRN Reason Stop Dose Admin Acetaminophen 650 mg 12/18/16 02:40 Tylenol Tab PO Q6HR PRN Mild Pain or Fever > 100.5 Hydrocodone Bitart/Acetaminophen 1 each 12/18/16 02:42 Lowell 10 PO Q4HR PRN Moderate Pain Albuterol/Ipratropium 3 ml 12/18/16 11:52 12/24/16 03:44 Duoneb 0.5 Mg-3 Mg/3 Ml Soln INHALATION 3 ml RT-Q4H PRN Administration Shortness Of Breath Albuterol/Ipratropium 3 ml 12/19/16 08:00 12/26/16 13:07 Duoneb 0.5 Mg-3 Mg/3 Ml Soln INHALATION 3 ml RT-TID STEVAN Administration Amiodarone HCl 400 mg 12/18/16 09:00 12/26/16 08:54 Cordarone PO 400 mg DAILY STEVAN Administration Aspirin 81 mg 12/18/16 21:00 12/25/16 19:54 Aspirin PO 81 mg HS STEVAN Administration Atorvastatin Calcium 10 mg 12/18/16 20:00 12/25/16 19:53 Lipitor PO 10 mg HS@2000 STEVAN Administration Calcium Carbonate 1 each 12/21/16 17:30 12/26/16 06:40 Oscal 500+D PO 1 each BID-W/MEALS STEVAN Administration Digoxin 125 mcg 12/19/16 09:00 12/25/16 09:11 Lanoxin PO 125 mcg Q48H STEVAN Administration Furosemide 40 mg 12/25/16 00:00 12/26/16 12:50 Lasix IV 40 mg Q6HR STEVAN Administration Guaifenesin 200 mg 12/24/16 22:46 Robitussin PO Q6H PRN Cough Levothyroxine Sodium 100 mcg 12/18/16 05:00 12/26/16 06:39 Synthroid PO 100 mcg DAILY@0500 [facility] Administration Levothyroxine Sodium 75 mcg 12/18/16 05:00 12/26/16 06:39 Synthroid PO 75 mcg DAILY@0500 [facility] Administration Lisinopril 2.5 mg 12/26/16 17:00 Zestril PO DAILY [facility] Lorazepam 0.25 mg 12/18/16 02:42 12/26/16 15:48 Ativan PO 0.25 mg Q6H PRN Administration Anxiety Melatonin 3 mg 12/18/16 20:00 12/25/16 19:54 Melatonin PO 3 mg HS@1999 [facility] Administration Metoprolol Tartrate 25 mg 12/18/16 07:00 12/26/16 12:51 Lopressor PO 25 mg TID@0700,1300,1900 [facility] Administration Multi-Ingred Cream/Lotion/Oil/Oint 1 applic 12/18/16 05:00 12/26/16 06:40 Eucerin Cream TOPICAL Not Given BID@050,1999 [facility] Multivitamins 1 each 12/18/16 21:00 12/25/16 19:54 Theragran PO 1 each HS [facility] Administration Naloxone HCl 0.2 mg 12/18/16 02:40 Narcan IV Q2M PRN Opioid Reversal Ondansetron HCl 4 mg 12/18/16 02:40 Zofran IVP Q8HR PRN Nausea And Vomiting Pantoprazole Sodium 40 mg 12/18/16 07:30 12/26/16 06:40 Protonix PO 40 mg AC-BRKFST [facility] Administration Senna 8.6 mg 12/18/16 02:42 Senokot PO BID PRN Constipation Spironolactone 25 mg 12/27/16 09:00 Aldactone PO DAILY [facility] Warfarin Sodium 2.5 mg 12/18/16 21:00 12/25/16 19:54 Coumadin PO 2.5 mg HS [facility] Administration Intake and Output 12/26/16 12/26/16 12/26/16 06:59 14:59 22:59 Intake Total 360 Output Total 800 400 Balance -800 -40 Intake: Oral 360 Output: Urine 800 400 Other: Voiding Method Urinal Urinal Urinal Weight 113.6 kg 12/26/16 05:44 12/26/16 05:44 EKG Interpretations (text) Sinus rhythm Assessment and Plan (1) Pulmonary embolism Status: Acute (2) Acute pulmonary edema Status: Acute (3) Acute respiratory failure Status: Acute (4) Congestive heart failure Status: Acute (5) Deep vein thrombosis (DVT) of right lower extremity Status: Acute (6) Histoplasmosis Status: Acute (7) Hx of CABG Status: Acute (8) Hypercholesterolemia Status: Acute (9) Hypertension Status: Acute Plan: We will continue current medical therapy. I'll cut back the dose of the amiodarone to 200 mg daily. I will also get digoxin level. We'll also add small dose of lisinopril and add spread aldactone. Further recommendations depend upon the clinical course
[2016-12-26] MEDS: LISINOPRIL 2.5 MG TAB PO SCH (17:11)
[2016-12-26] MEDS: WARFARIN 2.5 MG TAB PO SCH (20:35)
[2016-12-26] MEDS: ASPIRIN 81 MG CHEW PO SCH (20:35)
[2016-12-26] MEDS: MELATONIN 3 MG TABLET PO SCH (20:36)
[2016-12-26] MEDS: MULTIVITAMINS, THERA 1 EACH TAB PO SCH (20:36)
[2016-12-26] MEDS: ATORVASTATIN 10 MG TAB PO SCH (20:36)
--- NOTE | 2016-12-26 21:47 | P.PN ---
Subjective Mr. 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 Patient had chest x-ray in the ER that showed unchanged cardiomegaly with central pulmonary vascular congestion and stable right base opacity and moderate sized right pleural effusion and CT angiogram revealed acute pulmonary emboli in the left lower lobe, subsegmental pulmonary arteries. There is posterior right upper segmental pulmonary embolus , possibly chronic. The patient was subtherapeutic with Coumadin with INR of 1.7, and the patient was started on Heparin drip. On 12/24/16 -Pt denies having any complains. He states his SOB is better than when he came in. On 12/25/16 - pt still has SOB and his edema is still the same, not much improvement since yesterday. On12/26/16 - Pt's LE swelling is improving slowly . His SOB is slightly improved. ROS - CONSTITUTIONAL: No fever. No chills. Patient does have weakness. RESPIRATORY: Patient denies any cough or sputum production. The patient does have short of breath. CARDIOVASCULAR: No chest pain. Patient does have short of breath. The patient does have significant leg swelling. GENITOURINARY: Negative. Objective - Vital Signs Vital signs: Vital Signs Temp 97.5 F L 12/26/16 12:00 Pulse 75 12/26/16 12:00 Resp 20 12/26/16 12:00 BP 103/68 12/26/16 12:00 Pulse Ox 96 12/26/16 12:00 Intake & Output 12/25/16 12/26/16 12/26/16 18:59 06:59 18:59 Intake Total 676.245 Output Total 800 1000 400 Balance -123.755 -1000 -400 Weight 113.6 kg Intake: IV 344 0.9 80 Heparin 264 Intake, IV Titration 332.245 Amount Heparin Sodium,Porcine/ 332.245 D5w Pmx 25,000 unit In Dextrose/Water 1 500ml. bag @ 18 UNITS/KG/HR 40. 82 mls/hr IV .[id number] [facility] Rx#:[id number] Output: Urine 800 1000 400 Other: Voiding Method Urinal Urinal Urinal # Voids 1 - Exam HEENT: Atraumatic, normocephalic. Neck is supple. No JVD. CVS: S1, S2 ,Pansystolic murmur and Diastolic murmur. heard. Sternal flap is intact. No drainage. No chest wall tenderness. LUNGS: Bilateral air entry is present. Bilateral rhonchi positive. No wheezing and nonlabored breathing. ABDOMEN: Soft, nontender. Bowel sounds present. CENTRAL NERVOUS SYSTEM: Awake, alert, oriented x3. No focal deficits. EXTREMITIES: Bilateral lower extremity edema 3+ up to the knees. Improvement in erythema. Pulses palpable. No clubbing or cyanosis. PSYCHIATRIC: Cooperative. - Labs CBC & Chem 7: 12/26/16 05:44 12/26/16 05:44 Labs: Abnormal Lab Results - Last 24 Hours (Table) 12/26/16 12/26/16 12/26/16 Range/Units 05:44 05:44 05:44 RBC 3.38 L (4.30-5.90) m/uL Hgb 8.0 L (13.0-17.5) gm/dL Hct 26.9 L (39.0-53.0) % MCV 79.4 L (80.0-100.0) fL MCH 23.5 L (25.0-35.0) pg MCHC 29.7 L (31.0-37.0) g/dL RDW 18.7 H (11.5-15.5) % Lymphocytes # 0.6 L (1.0-4.8) k/uL PT 26.0 H (9.0-12.0) sec Chloride 90 L (98-107) mmol/L Carbon Dioxide 40 H* (22-30) mmol/L BUN 26 H (9-20) mg/dL Calcium 6.2 L* (8.4-10.2) mg/dL Assessment and Plan Plan: 1. Acute hypoxic respiratory failure secondary to acute pulmonary emboli as well as acute congestive heart failure exacerbation. 2. Acute on chronic congestive heart failure with systolic dysfunction and ejection fraction 40-45%. 3. 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 Recent aortic valve replacement with bovine valve and mitral valve with mediastinal lymph node biopsy. 5. Sternal dehiscence status post sternal exploration and debridement with wound closure with bilateral pectoralis muscle flaps. 6. Mild pulmonary hypertension. 7. Paroxysmal atrial fibrillation, on anticoagulation with Coumadin. Subtherapeutic INR level. 8. Hyperlipidemia. 9. Hypertension. 10. Osteoarthritis. 11. History of thyroid cancer status post surgery/radiation. 12. Hyperlipidemia. 13. Moderate pulmonary hypertension. 14. Gastroesophageal reflux disease. 15. Moderate protein calorie malnutrition with albumin level of 2.4. DISCUSSION AND PLAN: Patient's INR is therapeutic so heparin is d/c and continue the Coumadin dosing. As the CXR shows increased vascular congestion, will c/w Lasix 40 mg IV Q6 hrs. He was initially on Vancomycin and later Cefazolin for possible LE cellulitis. ID DR. montenegro evaluated the pt and d/c all his Abx. Cardiology has been consulted and awaiting recs. Pt's at the bed side, she mentions that Dr. Riggs's PA was in to see earlier and they suggested that he can re start his physical therapy. Treatment care plan was discussed with his in detail.
[2016-12-27] MEDS: LORazepam 0.5 MG TAB PO PRN (00:24)
[2016-12-27] MEDS: LEVOTHYROXINE 100 MCG TAB PO SCH (06:01)
[2016-12-27] MEDS: FUROSEMIDE 10 MG/ML 4 ML VIAL IV SCH ×2 (06:01→11:41)
[2016-12-27] MEDS: LEVOTHYROXINE 75 MCG TAB PO SCH (06:01)
[2016-12-27] MEDS: MINERAL OIL-WHITE PETROLATUM 120 GM JAR TOPICAL SCH ×2 (06:03→21:45)
[2016-12-27 06:36] LABS: Anisocytosis Slight; Basophils # (A) 0.1 k/uL (0-0.2); Basophils % (A) 1 %; CH 23.2; CHCM 28.8; Eosinophils # (A) 0.2 k/uL (0-0.7); Eosinophils % (A) 2 %; HCT 27.4 % (39.0-53.0); HDW 3.59; Hypochromasia Marked; Luc # (Auto) 0.17; Luc % (Auto) 2; Lymphocytes # (A) 0.6 k/uL (1.0-4.8); Lymphocytes % (A) 6 %; MCH 23.5 pg (25.0-35.0); MCHC 29.3 g/dL (31.0-37.0); MCV 80.1 fL (80.0-100.0); Microcytosis Slight; Monocytes # (A) 0.5 k/uL (0-1.0); Monocytes % (A) 5 %; Neutrophils # (A) 7.8 k/uL (1.3-7.7); Neutrophils % (A) 84 %; Poikilocytosis Slight; RBC 3.42 m/uL (4.30-5.90); RDW 19.2 % (11.5-15.5); WBC 9.3 k/uL (3.8-10.6); WBC (Perox) 9.65
[2016-12-27] MEDS: METOPROLOL TARTRATE 25 MG TAB PO SCH ×3 (06:48→21:44)
[2016-12-27] MEDS: CALCIUM CARB-VIT D 500MG-200UN 1 EACH TAB PO SCH ×2 (06:49→17:07)
[2016-12-27] MEDS: PANTOPRAZOLE 40 MG TABLET PO SCH (06:52)
[2016-12-27 06:59] LABS: Anion Gap 10 mmol/L; Blood Urea Nitrogen 27 mg/dL (9-20); Carbon Dioxide 37 mmol/L (22-30); Chloride 92 mmol/L (98-107); Digoxin 0.8 ng/mL; Glucose 87 mg/dL (74-99); Non-African American GFR(MDRD) >60 (>60 ml/min/1.73 sqM); Potassium 3.8 mmol/L (3.5-5.1); Sodium 139 mmol/L (137-145)
[2016-12-27 07:11] LABS: Calcium 6.2 mg/dL (8.4-10.2)
[2016-12-27] MEDS: AMIODARONE 200 MG TAB PO SCH (07:38)
[2016-12-27] MEDS: LISINOPRIL 2.5 MG TAB PO SCH (07:39)
[2016-12-27] MEDS: DIGOXIN 125 MCG TAB PO SCH (07:39)
[2016-12-27] MEDS: IPRATROPIUM-ALBUTEROL 3 ML NEB INHALATION SCH ×3 (07:48→19:34)
[2016-12-27] MEDS ORDERED: SPIRONOLACTONE 25 MG TAB PO SCH (09:00)
--- NOTE | 2016-12-27 11:52 | P.PN ---
Subjective Principal diagnosis: It hypoxic respiratory failure secondary to pulmonary emboli and congestive heart failure, systolic dysfunction. This is a very pleasant 71-year-old gentleman with a history of pulmonary hypertension, paroxysmal atrial fibrillation anticoagulated with warfarin, ruptured chordae tendon he was severe mitral regurgitation and aortic valve disease. 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 The patient had subsequently been discharged from that hospitalization and returned with increasing shortness of breath and significant congestive heart failure. He also had a sternal wound dehiscence that Dr. Riggs had repaired with a sternal exploration and debridement and wound closure with bilateral pectoralis muscle flaps. From that hospitalization he was transferred to [facility] inpatient rehabilitation with Dr. Christina. While there he again developed recurrent pleural effusion and congestive heart failure requiring repeated thoracentesis as well. MEGHAN drain fluid was positive for RI fail as influenza and Serratia marcescens. He was transferred back here 11/13/2016 for continuation of care. Again subsequently discharged to [facility] and was doing fairly well. He really presented here to the emergency room yesterday with complaints of increasing shortness of breath. His chest x-ray showed unchanged cardiomegaly with central pulmonary vascular congestion and a stable right basilar opacity a moderate sized right pleural effusion. There is decreased left pleural effusion compared to previous x-ray 11/23/2016. A CT angiogram revealed an acute pulmonary emboli in the left lower lobe subsegmental pulmonary arteries. There is posterior right upper lobe segmental pulmonary embolus, possibly chronic. There is slight flattening of the intraventricular septum that may represent right heart strain. Again noted moderate right and small left pleural effusions with adjacent opacities suspicious for pneumonia. He did have significant lower extremity edema with cellulitis however venous Dopplers revealed no DVTs. The patient is seen today in consultation on the selective care unit. He is currently awake and alert in no acute distress. He is resting fairly comfortably in bed. He is maintaining O2 saturations in the 90s on 3 L/m per nasal cannula. No leukocytosis, hemoglobin 8.3, INR 1.7, proBNP 4950. Initial lactic 2.5, currently 1.2. He denies any worsening shortness of breath, he is doing better today as compared to yesterday but still dyspneic on minimal exertion. He denies any productive cough or congestion. Patient was reevaluated today on 01/23/2017, continues to do relatively well, patient is on diuretics for his congestive heart failure, his also on anticoagulation therapy for his DVT and pulmonary embolism. Doing well, shortness of breath is significantly improved. No chest pain, no fever, no chills, patient is being followed by many consultants including infectious disease for his cellulitis of the left lower extremity. WBC count is 9.3 hemoglobin is 8.0 electrolytes are relatively normal. Bicarb is 37 BUN is 27 creatinine is 1.0. Last chest x-ray was few days ago, and it did show evidence of congestive heart failure and small right pleural effusion. Clinically however the patient is improving, more diuretics were added by cardiology on the case. Objective - Vital Signs Vital signs: Vital Signs Temp 98.1 F 12/27/16 11:13 Pulse 78 12/27/16 11:13 Resp 18 12/27/16 11:13 BP 101/68 12/27/16 11:13 Pulse Ox 96 12/27/16 11:13 Intake & Output 12/26/16 12/27/16 12/27/16 18:59 06:59 18:59 Intake Total 680 120 Output Total 900 1120 300 Balance -220 -1120 -180 Weight 113.7 kg Intake: Oral 680 120 Output: Urine 900 1120 300 Other: Voiding Method Urinal Urinal # Voids 2 1 0 - Exam GENERAL EXAM: Morbidly obese. Alert, active, comfortable in no apparent distress. HEAD: Normocephalic. EYES: Normal reaction of pupils, equal size. NOSE: Clear with pink turbinates. THROAT: No erythema or exudates. NECK: No masses, no JVD. CHEST: Excessive soft tissue noted at the sternum from previous sternal dehiscence and repair. LUNGS: Equal air entry with bibasilar crackles, few scattered rhonchi. CVS: S1 and S2 normal with no audible murmurs, regular rhythm. ABDOMEN: No hepatosplenomegaly, normal bowel sounds, no guarding or rigidity. SPINE: No scoliosis or deformity SKIN: Redness and warmth bilateral lower extremities with edema NERVOUS SYSTEM: No focal deficits, tone is normal in all 4 extremities. Extremities: There is 2-3+ lower extremity edema with redness and warmth. Peripheral pulses are intact. - Labs CBC & Chem 7: 12/27/16 05:34 12/27/16 05:34 Labs: Abnormal Lab Results - Last 24 Hours (Table) 12/27/16 12/27/16 Range/Units 05:34 05:34 RBC 3.42 L (4.30-5.90) m/uL Hgb 8.0 L (13.0-17.5) gm/dL Hct 27.4 L (39.0-53.0) % MCH 23.5 L (25.0-35.0) pg MCHC 29.3 L (31.0-37.0) g/dL RDW 19.2 H (11.5-15.5) % Neutrophils # 7.8 H (1.3-7.7) k/uL Lymphocytes # 0.6 L (1.0-4.8) k/uL Chloride 92 L (98-107) mmol/L Carbon Dioxide 37 H (22-30) mmol/L BUN 27 H (9-20) mg/dL Calcium 6.2 L* (8.4-10.2) mg/dL Assessment and Plan Plan: #1 Acute hypoxic respiratory failure, multifactorial secondary to acute pulmonary emboli, acute exacerbation of chronic systolic congestive heart failure, bilateral pleural effusions. #2 Recent aortic valve replacement with bovine valve and mitral valve repair with mediastinal lymph node biopsy. #3 Histoplasmosis. #4 Sternal dehiscence requiring sternal exploration and debridement with wound closure with bilateral pectoralis muscle flaps. #5 Pulmonary hypertension. #6 Paroxysmal atrial fibrillation, anticoagulated with warfarin. #7 Hyperlipidemia. #8 Osteoarthritis. #9 History of thyroid cancer status post surgery/radiation. #10 Overall poor functional performance secondary to the above-mentioned multiple comorbidities and extended inpatient stays and rehabilitation. Recommendation: Continue present treatment plan including diuretics, bronchodilators, and anticoagulation therapy. We'll continue to follow. Time with Patient: Less than 30
[2016-12-27 12:16] LABS: INR 3.3 (<1.1); Prothrombin Time 32.5 sec (9.0-12.0)
--- NOTE | 2016-12-27 13:15 | P.PN ---
Subjective this patient is feeling well. However however patient continues to have a significant leg edema of 3-4+. he continues to have some shortness of breath.patient remains in normal sinus rhythm. View of the significant leg edema we will start the patient on Lasix drip at 10 mg/h we'll give him 1 dose of Zaroxolyn 2.5 mg today. We will monitor BMP level. Objective - Vital Signs Vital signs: Vital Signs Temp 98.1 F 12/27/16 11:13 Pulse 78 12/27/16 11:13 Resp 18 12/27/16 11:13 BP 101/68 12/27/16 11:13 Pulse Ox 96 12/27/16 11:13 Intake & Output 12/26/16 12/27/16 12/27/16 18:59 06:59 18:59 Intake Total 680 120 Output Total 900 1120 300 Balance -220 -1120 -180 Weight 113.7 kg Intake: Oral 680 120 Output: Urine 900 1120 300 Other: Voiding Method Urinal Urinal # Voids 2 1 0 - Exam vital signs are reviewed. First and second heart sounds are normal. Lungs reveal bilateral scattered wheezes Extremities 3-4+ edema. - Labs CBC & Chem 7: 12/27/16 05:34 12/27/16 05:34 Labs: Abnormal Lab Results - Last 24 Hours (Table) 12/27/16 12/27/16 12/27/16 Range/Units 05:34 05:34 11:59 RBC 3.42 L (4.30-5.90) m/uL Hgb 8.0 L (13.0-17.5) gm/dL Hct 27.4 L (39.0-53.0) % MCH 23.5 L (25.0-35.0) pg MCHC 29.3 L (31.0-37.0) g/dL RDW 19.2 H (11.5-15.5) % Neutrophils # 7.8 H (1.3-7.7) k/uL Lymphocytes # 0.6 L (1.0-4.8) k/uL PT 32.5 H (9.0-12.0) sec Chloride 92 L (98-107) mmol/L Carbon Dioxide 37 H (22-30) mmol/L BUN 27 H (9-20) mg/dL Calcium 6.2 L* (8.4-10.2) mg/dL Assessment and Plan Plan: this patient is being treated for pulmonary embolism atrial fibrillation and congestive cardiac failure patient continues to have bilateral significant leg edema start the patient on Lasix drip and give him his dose of Zaroxolyn 2.5 mg daily
[2016-12-27 13:19] LABS: Anion Gap 10 mmol/L; Blood Urea Nitrogen 27 mg/dL (9-20); Carbon Dioxide 38 mmol/L (22-30); Chloride 89 mmol/L (98-107); Glucose 109 mg/dL (74-99); Non-African American GFR(MDRD) >60 (>60 ml/min/1.73 sqM); Potassium 4.2 mmol/L (3.5-5.1); Sodium 137 mmol/L (137-145)
[2016-12-27 13:22] LABS: Calcium 6.4 mg/dL (8.4-10.2)
--- NOTE | 2016-12-27 14:08 | XR ---
EXAMINATION TYPE: XR chest 2V DATE OF EXAM: 12/27/2016 COMPARISON: 12/24/2016 INDICATION: CHF, short of breath TECHNIQUE: Frontal and lateral views of the chest are obtained. FINDINGS: The heart size is enlarged. The pulmonary vasculature is prominent. Diffuse increased lung markings in the lower lung elam. This is improved from prior study. Small to moderate right pleural effusion and small left pleural effusion are present.. IMPRESSION: 1. Slight improvement of congestive heart failure.
[2016-12-27] MEDS: FUROSEMIDE 250 MG in SODIUM CHLORIDE 0.9% 225 ML IVP SCH (14:14)
--- NOTE | 2016-12-27 21:34 | P.PN ---
Subjective Principal diagnosis: Shortness of breath This is a 71-year-old male well known to ID service who came in the hospital on September 23 and underwent a JAYDE and heart catheterization showing a ruptured chordae tendonae, mitral regurgitation, moderate pulmonary hypertension , with history of paroxysmal atrial fibrillation and heart failure. 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 With this the patient was initiated to itraconazole. He however developed atrial fibrillation. Because of this he was initiated to amiodarone. The dose of itraconazole was reduced by 50%. There is no evidence of alteration of the QT interval while he was in hospital. He eventually was discharged home. It is related that he was not able to obtain the itraconazole. In this is going to be addressed in the coming days. However he returned to [facility] emergency center due to shortness of breath and was hospitalized October 06 through October 30 at which time he required intubation and mechanical ventilation. He was successfully extubated. He was treated for dehiscence of sternal wires requiring sternal exploration, debridement and wound closure with bilateral pectoralis major myocutaneous advanced flaps. He also required chest tube placement for left pleural effusion and right thoracentesis for right pleural effusion with drainage of 1.5 L of dark red tinged fluid. Muscle flap procedure was done on October 15. Patient was stabilized and then transferred to [facility] for inpatient rehab under the care of Dr. Christina. He developed increasing shortness of breath and edema and was eventually transferred to the intensive care unit where he was found to be in atrial fibrillation with rapid ventricular response and acute systolic heart failure and underwent thoracentesis with removal of 1.6 L on the right chest. Eventually his status improved and after a stay with Dr. Reyes within the inpatient rehab unit he was transferred to the [facility] for ongoing physical therapy. He then developed some increasing shortness of breath and lower extremity edema. Duplex was performed without evidence of deep venous thrombosis. Because of patient was quite short of breath a CT angiogram was performed. Evidence of the pulmonary embolus. He has not been heparinized and feeling slightly better. He continues to have dyspnea on exertion and some orthopnea but is not complaining of PND. He is not having significant cough or sputum production and no hemoptysis. No bleeding in other sites. Feels better today had some SOB is now improved. Has occasional cough Looks forward to going to the [facility] on Tuesday. Objective - Vital Signs Vital signs: Vital Signs Temp 96.6 F L 12/27/16 20:00 Pulse 82 12/27/16 20:00 Resp 19 12/27/16 20:00 BP 98/60 12/27/16 20:00 Pulse Ox 96 12/27/16 20:00 Intake & Output 12/27/16 12/27/16 12/28/16 06:59 18:59 06:59 Intake Total 120 Output Total 1120 500 800 Balance -1120 -380 -800 Weight 113.7 kg Intake: Oral 120 Output: Urine 1120 500 800 Other: Voiding Method Urinal Urinal # Voids 1 0 3 - Exam This is a 71-year-old male. He appears comfortable and is able to sit up without significant difficulty. Relates that his shortness of breath is improved. HEENT: Head is atraumatic, normocephalic. Pupils equal, round. Sclerae is anicteric. Conjunctiva slightly pale. Mucous membranes of the mouth are dry. No thrush noted. NECK: Supple. No JVD. No lymphadenopathy. No thyromegaly. LUNGS: There is symmetrical air entry. There is evidence of a few basilar crackles. Scattered expiratory wheezes. HEART: Irregular with no murmur the sternal wound is now completely healed. He has evidence of the prior pectoralis muscle flap. There is evidence of some chronic skin color change is actually improving over time. The site is not warm. There are no open lesions or drainage. ABDOMEN: Distinctly distended. Bowel sounds are normal. Organomegaly is not detected. Abdomen is nontender. EXTREMITIES: +3 bilateral pedal edema. The edema is actually improved from the last visit. He has chronic skin color changes to the bilateral lower extremities. Reserve sites are without purulence or difficulty. NEUROLOGICAL: Awake and alert. No acute gross focal sensory motor deficits except generalized weakness. Vocal quality improved - Labs CBC & Chem 7: 12/27/16 05:34 12/27/16 12:00 Labs: Abnormal Lab Results - Last 24 Hours (Table) 12/27/16 12/27/16 12/27/16 Range/Units 05:34 05:34 11:59 RBC 3.42 L (4.30-5.90) m/uL Hgb 8.0 L (13.0-17.5) gm/dL Hct 27.4 L (39.0-53.0) % MCH 23.5 L (25.0-35.0) pg MCHC 29.3 L (31.0-37.0) g/dL RDW 19.2 H (11.5-15.5) % Neutrophils # 7.8 H (1.3-7.7) k/uL Lymphocytes # 0.6 L (1.0-4.8) k/uL PT 32.5 H (9.0-12.0) sec Chloride 92 L (98-107) mmol/L Carbon Dioxide 37 H (22-30) mmol/L BUN 27 H (9-20) mg/dL Glucose (74-99) mg/dL Calcium 6.2 L* (8.4-10.2) mg/dL 12/27/16 Range/Units 12:00 RBC (4.30-5.90) m/uL Hgb (13.0-17.5) gm/dL Hct (39.0-53.0) % MCH (25.0-35.0) pg MCHC (31.0-37.0) g/dL RDW (11.5-15.5) % Neutrophils # (1.3-7.7) k/uL Lymphocytes # (1.0-4.8) k/uL PT (9.0-12.0) sec Chloride 89 L (98-107) mmol/L Carbon Dioxide 38 H (22-30) mmol/L BUN 27 H (9-20) mg/dL Glucose 109 H (74-99) mg/dL Calcium 6.4 L* (8.4-10.2) mg/dL Laboratory Results WBC 9.3 k/uL (3.8-10.6) 12/27/16 05:34 RBC 3.42 m/uL (4.30-5.90) L 12/27/16 05:34 Hgb 8.0 gm/dL (13.0-17.5) L 12/27/16 05:34 Hct 27.4 % (39.0-53.0) L 12/27/16 05:34 MCV 80.1 fL (80.0-100.0) 12/27/16 05:34 MCH 23.5 pg (25.0-35.0) L 12/27/16 05:34 MCHC 29.3 g/dL (31.0-37.0) L 12/27/16 05:34 RDW 19.2 % (11.5-15.5) H 12/27/16 05:34 Plt Count 312 k/uL (150-450) 12/27/16 05:34 Neutrophils % 84 % 12/27/16 05:34 Lymphocytes % 6 % 12/27/16 05:34 Monocytes % 5 % 12/27/16 05:34 Eosinophils % 2 % 12/27/16 05:34 Basophils % 1 % 12/27/16 05:34 Neutrophils # 7.8 k/uL (1.3-7.7) H 12/27/16 05:34 Lymphocytes # 0.6 k/uL (1.0-4.8) L 12/27/16 05:34 Monocytes # 0.5 k/uL (0-1.0) 12/27/16 05:34 Eosinophils # 0.2 k/uL (0-0.7) 12/27/16 05:34 Basophils # 0.1 k/uL (0-0.2) 12/27/16 05:34 Hypochromasia Marked 12/27/16 05:34 Poikilocytosis Slight 12/27/16 05:34 Anisocytosis Slight 12/27/16 05:34 Microcytosis Slight 12/27/16 05:34 PT 32.5 sec (9.0-12.0) H 12/27/16 11:59 INR 3.3 (<1.1) 12/27/16 11:59 APTT 76.6 sec (22.0-30.0) H 12/25/16 05:41 D-Dimer 8.41 mg/L FEU (<0.60) H 12/17/16 21:37 Sodium 137 mmol/L (137-145) 12/27/16 12:00 Potassium 4.2 mmol/L (3.5-5.1) 12/27/16 12:00 Chloride 89 mmol/L (98-107) L 12/27/16 12:00 Carbon Dioxide 38 mmol/L (22-30) H 12/27/16 12:00 Anion Gap 10 mmol/L 12/27/16 12:00 BUN 27 mg/dL (9-20) H 12/27/16 12:00 Creatinine 1.05 mg/dL (0.66-1.25) 12/27/16 12:00 Est GFR (MDRD) Af Amer >60 (>60 ml/min/1.73 sqM) 12/27/16 12:00 Est GFR (MDRD) Non-Af >60 (>60 ml/min/1.73 sqM) 12/27/16 12:00 Glucose 109 mg/dL (74-99) H 12/27/16 12:00 Plasma Lactic Acid Samir 1.2 mmol/L (0.7-2.0) 12/18/16 03:42 Calcium 6.4 mg/dL (8.4-10.2) L* 12/27/16 12:00 Magnesium 1.9 mg/dL (1.6-2.3) 12/17/16 21:37 Total Bilirubin 0.7 mg/dL (0.2-1.3) 12/17/16 21:37 AST 37 U/L (17-59) 12/17/16 21:37 ALT 33 U/L (21-72) 12/17/16 21:37 Alkaline Phosphatase 81 U/L (38-126) 12/17/16 21:37 Total Creatine Kinase 42 U/L (55-170) L 12/17/16 21:37 CK-MB (CK-2) 2.2 ng/mL (0.0-2.4) 12/17/16 21:37 CK-MB (CK-2) Rel Index 5.2 12/17/16 21:37 Troponin I 0.013 ng/mL (0.000-0.034) 12/17/16 21:37 NT-Pro-B Natriuret Pep 4950 pg/mL 12/17/16 21:37 Total Protein 6.3 g/dL (6.3-8.2) 12/17/16 21:37 Albumin 2.4 g/dL (3.5-5.0) L 12/17/16 21:37 Vitamin D 25-Hydroxy 29.8 ng/mL (30.0-100.0) L 12/21/16 05:25 Urine Color Yellow 12/17/16 23:00 Urine Appearance Clear (Clear) 12/17/16 23:00 Urine pH 6.0 (5.0-8.0) 12/17/16 23:00 Ur Specific [place] 1.011 (1.001-1.035) 12/17/16 23:00 Urine Protein Negative (Negative) 12/17/16 23:00 Urine Glucose (UA) Negative (Negative) 12/17/16 23:00 Urine Ketones Negative (Negative) 12/17/16 23:00 Urine Blood Negative (Negative) 12/17/16 23:00 Urine Nitrite Negative (Negative) 12/17/16 23:00 Urine Bilirubin Negative (Negative) 12/17/16 23:00 Urine Urobilinogen 3.0 mg/dL (<2.0) 12/17/16 23:00 Ur Leukocyte Esterase Negative (Negative) 12/17/16 23:00 Stool Occult Blood Negative (Negative) 12/26/16 08:15 Digoxin 0.8 ng/mL 12/27/16 05:34 Microbiology 12/17/16 21:37 Blood Blood Culture - Final No Growth after 144 hours Assessment and Plan (1) Pulmonary embolism Narrative/Plan: Pleasant 71-year-old male is a very recent extensive past medical history regarding his cardiovascular disease. His aortic valve replacement and mitral valve repair in the many ongoing complications he has had since the procedures. He presented hospital with increasing lower extremity edema but profoundly having shortness of breath. He had a CT antigram showing evidence of a new pulmonary embolus that have been found. He is now receiving anticoagulation. With this he started to feel somewhat better. Fluctuates have been wrapped and the extensive edema is much improved and noted admission. They are not tender. The chronic erythema is about at baseline. There is no ascending erythema. No evidence of any significant lymphadenopathy. Patient does not appear to have infection in the limbs at this time. It appears a pulmonary embolus caused worsening lower extremity edema that is now improving. Continue with elevation and wraps. Skin moisturization continues with Eucerin. Antibiotic therapy is discontinued. At admission there was no leukocytosis and no fevers. He's had a mild leukocytosis which has now resolved. But does not appear to have underlying infection at this time. Some worsening CHF has been treated with improvement. Does feel better today. Performing exercises with 's encouragement. Looking forward to finishing his therapy at [facility]. Status: Acute (2) Atrial fibrillation with RVR Status: Acute (3) Status post aortic valve replacement Status: Acute (4) Status post mitral valve repair Status: Acute
[2016-12-27] MEDS: ATORVASTATIN 10 MG TAB PO SCH (21:43)
[2016-12-27] MEDS: MELATONIN 3 MG TABLET PO SCH (21:44)
[2016-12-27] MEDS: MULTIVITAMINS, THERA 1 EACH TAB PO SCH (21:44)
[2016-12-27] MEDS: ASPIRIN 81 MG CHEW PO SCH (21:44)
--- NOTE | 2016-12-27 22:36 | P.PN ---
Progress Note - Text Presenting complaint: Short of breath Interval history: This is a patient with multiple medical problems who has a history of aortic valve replacement and mitral valve repair. She subsequently had sternal wound devices and had to have a pectoralis flap in place. Patient admitted this time with acute congestive heart failure exacerbation and acute pulmonary embolism. Patient has been in sinus rhythm. 12/27/2016: Today the is at the bedside. Patient been tolerating his diet. Not excessive activity edema is present. Patient did talk about [address] yesterday, with a walker. Telemetry showing sinus rhythm. Antibiotics have been discontinued per Dr. Ramos. On Lasix drip eyes and nose show negative fluid balance Review of systems: Was done for constitutional, cardiovascular, GI, pulmonary. relevant finding as above Medications reviewed that included DuoNeb Cordarone IV Lasix drip and Zaroxolyn VITAL SIGNS: [97.9, 82, 18, 96/58,] GENERAL APPEARANCE: Well built, laying in bed short of breath at rest but not in distress. EYES: Pupils equal. Conjunctiva normal. NECK: JVD unable to assess. Mass not palpable. RESPIRATORY: Respiratory effort increased. Lungs diminished breath sounds 50 the bases CARDIOVASCULAR: First and second sounds normal. Significant edema present. ABDOMEN: Soft, distended. Liver and spleen not palpable. No tenderness. No mass palpable. PSYCHIATRY: Alert and oriented x3. Mood and affect tired appearing Labs:. 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 Continue with anticoagulation. Continue with Lasix drip. Follow lites closely. Will outpatient program Kieran wraps. Antibody have been discontinued per Dr. Ramos
[2016-12-28] MEDS: LORazepam 0.5 MG TAB PO PRN (03:53)
[2016-12-28] MEDS: FUROSEMIDE 250 MG in SODIUM CHLORIDE 0.9% 225 ML IVP SCH ×2 (04:53→21:47)
[2016-12-28] MEDS: MINERAL OIL-WHITE PETROLATUM 120 GM JAR TOPICAL SCH ×2 (05:42→22:26)
[2016-12-28] MEDS: LEVOTHYROXINE 100 MCG TAB PO SCH (05:49)
[2016-12-28] MEDS: LEVOTHYROXINE 75 MCG TAB PO SCH (05:49)
[2016-12-28] MEDS: CALCIUM CARB-VIT D 500MG-200UN 1 EACH TAB PO SCH ×2 (06:42→15:41)
[2016-12-28] MEDS: METOPROLOL TARTRATE 25 MG TAB PO SCH ×3 (06:42→21:25)
[2016-12-28 06:43] LABS: Blood Urea Nitrogen 24 mg/dL (9-20); Calcium 6.6 mg/dL (8.4-10.2); Chloride 89 mmol/L (98-107); Glucose 87 mg/dL (74-99); Non-African American GFR(MDRD) >60 (>60 ml/min/1.73 sqM); Sodium 139 mmol/L (137-145)
[2016-12-28] MEDS: PANTOPRAZOLE 40 MG TABLET PO SCH (06:43)
[2016-12-28 06:51] LABS: Anion Gap 12 mmol/L; Carbon Dioxide 38 mmol/L (22-30); INR 3.7 (<1.1); Prothrombin Time 36.4 sec (9.0-12.0)
[2016-12-28] MEDS: IPRATROPIUM-ALBUTEROL 3 ML NEB INHALATION SCH ×3 (07:33→19:26)
[2016-12-28] MEDS: SPIRONOLACTONE 25 MG TAB PO SCH (07:53)
[2016-12-28] MEDS: METOLAZONE 2.5 MG TAB PO SCH (07:54)
[2016-12-28] MEDS: AMIODARONE 200 MG TAB PO SCH (07:54)
[2016-12-28] MEDS: LISINOPRIL 2.5 MG TAB PO SCH (07:54)
--- NOTE | 2016-12-28 10:43 | P.PN ---
Subjective Principal diagnosis: It hypoxic respiratory failure secondary to pulmonary emboli and congestive heart failure, systolic dysfunction. This is a very pleasant 71-year-old gentleman with a history of pulmonary hypertension, paroxysmal atrial fibrillation anticoagulated with warfarin, ruptured chordae tendon he was severe mitral regurgitation and aortic valve disease. 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 The patient had subsequently been discharged from that hospitalization and returned with increasing shortness of breath and significant congestive heart failure. He also had a sternal wound dehiscence that Dr. Riggs had repaired with a sternal exploration and debridement and wound closure with bilateral pectoralis muscle flaps. From that hospitalization he was transferred to [facility] inpatient rehabilitation with Dr. Christina. While there he again developed recurrent pleural effusion and congestive heart failure requiring repeated thoracentesis as well. MEGHAN drain fluid was positive for IA fail as influenza and Serratia marcescens. He was transferred back here 11/13/2016 for continuation of care. [facility] and was doing fairly well. He really presented here to the emergency room yesterday with complaints of increasing shortness of breath. His chest x-ray showed unchanged cardiomegaly with central pulmonary vascular congestion and a stable right basilar opacity a moderate sized right pleural effusion. There is decreased left pleural effusion compared to previous x-ray 11/23/2016. A CT angiogram revealed an acute pulmonary emboli in the left lower lobe subsegmental pulmonary arteries. There is posterior right upper lobe segmental pulmonary embolus, possibly chronic. There is slight flattening of the intraventricular septum that may represent right heart strain. Again noted moderate right and small left pleural effusions with adjacent opacities suspicious for pneumonia. He did have significant lower extremity edema with cellulitis however venous Dopplers revealed no DVTs. The patient is seen today in consultation on the selective care unit. He is currently awake and alert in no acute distress. He is resting fairly comfortably in bed. He is maintaining O2 saturations in the 90s on 3 L/m per nasal cannula. No leukocytosis, hemoglobin 8.3, INR 1.7, proBNP 4950. Initial lactic 2.5, currently 1.2. He denies any worsening shortness of breath, he is doing better today as compared to yesterday but still dyspneic on minimal exertion. He denies any productive cough or congestion. Patient was reevaluated today on 12/27/2016, continues to do relatively well, patient is on diuretics for his congestive heart failure, his also on anticoagulation therapy for his DVT and pulmonary embolism. Doing well, shortness of breath is significantly improved. No chest pain, no fever, no chills, patient is being followed by many consultants including infectious disease for his cellulitis of the left lower extremity. WBC count is 9.3 hemoglobin is 8.0 electrolytes are relatively normal. Bicarb is 37 BUN is 27 creatinine is 1.0. Last chest x-ray was few days ago, and it did show evidence of congestive heart failure and small right pleural effusion. Clinically however the patient is improving, more diuretics were added by cardiology on the case. Reevaluated today on 12/28/2016, patient continues to do relatively well in spite of his multiple medical issues. Less shortness of breath, ambulating with the use of a walker in the hallway. INR is 3.7 electrolytes were reviewed renal profile is relatively unremarkable. Last chest x-ray from yesterday continues to show some congestive heart failure. Objective - Vital Signs Vital signs: Vital Signs Temp 97.2 F L 12/28/16 08:00 Pulse 84 12/28/16 08:00 Resp 18 12/28/16 08:00 BP 92/58 12/28/16 08:00 Pulse Ox 93 L 12/28/16 08:00 Intake & Output 12/27/16 12/28/16 12/28/16 18:59 06:59 18:59 Intake Total 120 519.75 240 Output Total 500 1080 Balance -380 -560.25 240 Weight 111.2 kg Intake: IV 200 0.9 50 Furosemide 250 mg In 150 Sodium Chloride 0.9% 225 ml @ 15 MG/HR 15 mls/hr IVP .[id number] STEVAN Rx#: [id number] Intake, IV Titration 219.75 Amount Furosemide 250 mg In 219.75 Sodium Chloride 0.9% 225 ml @ 15 MG/HR 15 mls/hr IVP .[id number] STEVAN Rx#: [id number] Oral 120 100 240 Output: Urine 500 1080 Other: Voiding Method Urinal Urinal # Voids 0 1 - Exam GENERAL EXAM: Morbidly obese. Alert, active, comfortable in no apparent distress. HEAD: Normocephalic. EYES: Normal reaction of pupils, equal size. NOSE: Clear with pink turbinates. THROAT: No erythema or exudates. NECK: No masses, no JVD. CHEST: Excessive soft tissue noted at the sternum from previous sternal dehiscence and repair. LUNGS: Equal air entry with bibasilar crackles, few scattered rhonchi. CVS: S1 and S2 normal with no audible murmurs, regular rhythm. ABDOMEN: No hepatosplenomegaly, normal bowel sounds, no guarding or rigidity. SPINE: No scoliosis or deformity SKIN: Redness and warmth bilateral lower extremities with edema NERVOUS SYSTEM: No focal deficits, tone is normal in all 4 extremities. Extremities: There is 2-3+ lower extremity edema with redness and warmth. Peripheral pulses are intact. - Labs CBC & Chem 7: 12/27/16 05:34 12/28/16 05:32 Labs: Abnormal Lab Results - Last 24 Hours (Table) 12/27/16 12/27/16 12/28/16 Range/Units 11:59 12:00 05:32 PT 32.5 H 36.4 H (9.0-12.0) sec Chloride 89 L (98-107) mmol/L Carbon Dioxide 38 H (22-30) mmol/L BUN 27 H (9-20) mg/dL Glucose 109 H (74-99) mg/dL Calcium 6.4 L* (8.4-10.2) mg/dL 12/28/16 Range/Units 05:32 PT (9.0-12.0) sec Chloride 89 L (98-107) mmol/L Carbon Dioxide 38 H (22-30) mmol/L BUN 24 H (9-20) mg/dL Glucose (74-99) mg/dL Calcium 6.6 L (8.4-10.2) mg/dL Assessment and Plan Plan: #1 Acute hypoxic respiratory failure, multifactorial secondary to acute pulmonary emboli, acute exacerbation of chronic systolic congestive heart failure, bilateral pleural effusions. #2 Recent aortic valve replacement with bovine valve and mitral valve repair with mediastinal lymph node biopsy. #3 Histoplasmosis. #4 Sternal dehiscence requiring sternal exploration and debridement with wound closure with bilateral pectoralis muscle flaps. #5 Pulmonary hypertension. #6 Paroxysmal atrial fibrillation, anticoagulated with warfarin. #7 Hyperlipidemia. #8 Osteoarthritis. #9 History of thyroid cancer status post surgery/radiation. #10 Overall poor functional performance secondary to the above-mentioned multiple comorbidities and extended inpatient stays and rehabilitation. Recommendation: Continue present treatment plan including diuretics, bronchodilators, and anticoagulation therapy. We'll continue to follow. Discharge planning hopefully in the next couple of days. Time with Patient: Less than 30
[2016-12-28] MEDS ORDERED: FERROUS SULFATE 325 MG TAB PO STA (12:39)
--- NOTE | 2016-12-28 13:33 | P.PN ---
Progress Note - Text Progress Note - Text Patient Name: Jn Stevenson Date of : 1945 Patient Status: Inpatient Attending Provider: Temo Page Date: 12/28/16 22:21 Initialization Date: 12/27/16 22:21 Progress Note - Text Presenting complaint: Short of breath Interval history: This is a patient with multiple medical problems who has a history of aortic valve replacement and mitral valve repair. She subsequently had sternal wound devices and had to have a pectoralis flap in place. Patient admitted this time with acute congestive heart failure exacerbation and acute pulmonary embolism. Patient has been in sinus rhythm. 12/27/2016: Today the is at the bedside. Patient been tolerating his diet. Not excessive activity edema is present. Patient did talk about [address] yesterday, with a walker. Telemetry showing sinus rhythm. Antibiotics have been discontinued per Dr. Ramos. On Lasix drip eyes and nose show negative fluid balance December 28/2017: Today the patient is feeling better. Sitting up in a chair. Did tolerate his diet. Legs are Kieran wrapped. Edema still present Review of systems: Was done for constitutional, cardiovascular, GI, pulmonary. relevant finding as above Medications reviewed that included DuoNeb Cordarone IV Lasix drip at 15 mg/ hour and Zaroxolyn VITAL SIGNS: [97.2, 84, 18, 92/58, 93% on 4 L] GENERAL APPEARANCE: Sitting up in a chair, mildly short of breath at rest . EYES: Pupils equal. Conjunctiva normal. NECK: JVD unable to assess. Mass not palpable. RESPIRATORY: Respiratory effort increased. Lungs diminished breath sounds CARDIOVASCULAR: First and second sounds normal. Significant edema present. ABDOMEN: Soft, distended. Liver and spleen not palpable. No tenderness. No mass palpable. PSYCHIATRY: Alert and oriented x3. Mood and affect slightly anxious Labs:. 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 -Metabolic alkalosis probably from diuresis -Moderate protein calorie malnutrition, Plan: Continue with Lasix drip. Patient still fluid overloaded. Patient running hypotension in the setting of anemia, will transfuse 1 unit of blood, to improve the blood pressure. We will send off iron studies B12 and also guaiac stool. Care was discussed with Dr. Morales from cardiology and the
--- NOTE | 2016-12-28 16:29 | P.PN ---
Subjective Principal diagnosis: CHF, pulmonary emboli, status post triple replacement, history of atrial flutter. This 71-year-old gentleman with history of previous valve surgery, CABG, sternal dehiscence, atrial flutter with congestive heart failure is admitted to the hospital with evidence of pulmonary emboli. Patient also has chronic edema of the legs with cellulitis. Patient has been on anticoagulation therapy. Patient was initiated Lasix drip yesterday along with Zaroxolyn. Patient is putting out urine. Patient still has significant edema of the legs. Overall ischemic status seemed to be improved. His maintaining sinus rhythm. His lab values showed normal electrolytes. We'll continue current medical therapy. Patient has been anemic chronically. We'll going to add iron supplement. He may be considered for transfusion of one unit of blood. Objective - Vital Signs Vital signs: Vital Signs Temp 97.2 F L 12/28/16 15:59 Pulse 79 12/28/16 15:59 Resp 18 12/28/16 15:59 BP 88/47 12/28/16 15:59 Pulse Ox 94 L 12/28/16 15:59 Intake & Output 12/27/16 12/28/16 12/28/16 18:59 06:59 18:59 Intake Total 120 519.75 480 Output Total 500 1080 1600 Balance -380 -560.25 -1120 Weight 111.2 kg Intake: IV 200 0.9 50 Furosemide 250 mg In 150 Sodium Chloride 0.9% 225 ml @ 15 MG/HR 15 mls/hr IVP .[id number] [facility] Rx#: [id number] Intake, IV Titration 219.75 Amount Furosemide 250 mg In 219.75 Sodium Chloride 0.9% 225 ml @ 15 MG/HR 15 mls/hr IVP .[id number] [facility] Rx#: [id number] Oral 120 100 480 Output: Urine 500 1080 1600 Other: Voiding Method Urinal Urinal # Voids 0 1 1 - Exam GENERAL EXAM: Patient is alert and oriented and doesn't appear to be in mild distress HEENT: Normocephalic. Normal reaction of pupils, equal size, normal range of extraocular motion. No erythema or exudates in the throat. NECK: No masses, no nuchal rigidity. CHEST: No chest wall deformity. LUNGS: Diminished breath sounds HEART: S1 and S2 normal with no audible mumurs or gallops. Regular rhythm, femorals equal on both sides.. ABDOMEN: No hepatosplenomegaly, normal bowel sounds, no guarding or rigidity. SKIN: No rashes CENTRAL NERVOUS SYSTEM: No focal deficits. EXTREMITIES: Significant edema of the legs - Labs CBC & Chem 7: 12/27/16 05:34 12/28/16 05:32 Labs: Abnormal Lab Results - Last 24 Hours (Table) 12/28/16 12/28/16 12/28/16 Range/Units 05:32 05:32 13:46 PT 36.4 H (9.0-12.0) sec Chloride 89 L (98-107) mmol/L Carbon Dioxide 38 H (22-30) mmol/L BUN 24 H (9-20) mg/dL Calcium 6.6 L (8.4-10.2) mg/dL Crossmatch See Detail Assessment and Plan (1) Pulmonary embolism Status: Acute (2) Acute pulmonary edema Status: Acute (3) Acute respiratory failure Status: Acute (4) Congestive heart failure Status: Acute (5) Deep vein thrombosis (DVT) of right lower extremity Status: Acute (6) Histoplasmosis Status: Acute (7) Hx of CABG Status: Acute (8) Hypercholesterolemia Status: Acute (9) Hypertension Status: Acute Plan: Patient is initiated on IV Lasix drip and also put on Zaroxolyn. Will follow elect lites closely. His blood pressure has been running low. Further examination depend upon the clinical course. Patient may also received blood transfusion. His put on iron supplement.
[2016-12-28] MEDS: ASPIRIN 81 MG CHEW PO SCH (21:47)
[2016-12-28] MEDS: guaiFENesin SYRUP 100MG/5ML 200 MG/10 ML CUP PO PRN (21:47)
[2016-12-28] MEDS: MULTIVITAMINS, THERA 1 EACH TAB PO SCH (21:47)
[2016-12-28] MEDS: ATORVASTATIN 10 MG TAB PO SCH (21:47)
[2016-12-28] MEDS: WARFARIN 2.5 MG TAB PO SCH (21:47)
[2016-12-28] MEDS: MELATONIN 3 MG TABLET PO SCH (22:53)
[2016-12-29] MEDS: guaiFENesin SYRUP 100MG/5ML 200 MG/10 ML CUP PO PRN (03:50)
[2016-12-29 05:17] LABS: Anisocytosis Slight; Basophils # (A) 0.1 k/uL (0-0.2); Basophils % (A) 1 %; CH 23.6; CHCM 30.2; Eosinophils # (A) 0.2 k/uL (0-0.7); Eosinophils % (A) 3 %; HCT 27.8 % (39.0-53.0); HDW 3.95; HGB 8.8 gm/dL (13.0-17.5); Hypochromasia Marked; Luc # (Auto) 0.14; Luc % (Auto) 2; Lymphocytes # (A) 0.8 k/uL (1.0-4.8); Lymphocytes % (A) 9 %; MCH 24.5 pg (25.0-35.0); MCHC 31.5 g/dL (31.0-37.0); MCV 77.7 fL (80.0-100.0); Mean Platelet Volume 6.7; Microcytosis Slight; Monocytes # (A) 0.5 k/uL (0-1.0); Monocytes % (A) 5 %; Neutrophils # (A) 6.9 k/uL (1.3-7.7); Neutrophils % (A) 80 %; Poikilocytosis Slight; RBC 3.58 m/uL (4.30-5.90); RDW 18.8 % (11.5-15.5); WBC 8.7 k/uL (3.8-10.6); WBC (Perox) 8.92
[2016-12-29] MEDS: MINERAL OIL-WHITE PETROLATUM 120 GM JAR TOPICAL SCH ×2 (06:30→20:39)
[2016-12-29] MEDS: LEVOTHYROXINE 75 MCG TAB PO SCH (06:31)
[2016-12-29] MEDS: LEVOTHYROXINE 100 MCG TAB PO SCH (06:31)
[2016-12-29] MEDS: METOPROLOL TARTRATE 25 MG TAB PO SCH ×3 (06:31→20:26)
[2016-12-29] MEDS: CALCIUM CARB-VIT D 500MG-200UN 1 EACH TAB PO SCH ×2 (06:32→17:59)
[2016-12-29] MEDS: PANTOPRAZOLE 40 MG TABLET PO SCH (06:32)
[2016-12-29] MEDS: IPRATROPIUM-ALBUTEROL 3 ML NEB INHALATION SCH ×3 (08:06→19:51)
[2016-12-29] MEDS: AMIODARONE 200 MG TAB PO SCH (09:32)
[2016-12-29] MEDS: LISINOPRIL 2.5 MG TAB PO SCH (09:33)
[2016-12-29] MEDS: DIGOXIN 125 MCG TAB PO SCH (09:33)
[2016-12-29] MEDS: SPIRONOLACTONE 25 MG TAB PO SCH (09:34)
[2016-12-29] MEDS: METOLAZONE 2.5 MG TAB PO SCH (09:34)
[2016-12-29] MEDS: FERROUS SULFATE 325 MG TAB PO SCH (09:35)
--- NOTE | 2016-12-29 10:49 | CDI ---
In responding to this query, please exercise your independent professional judgment. The [facility] Coding Staff and Clinical Documentation Specialists appreciate your assistance in clarifying documentation, maintaining compliance with coding guidelines, accurately documenting patients condition and capturing severity of illness. The fact that a question is asked does not imply that any particular answer is desired or expected. Communication forms are a method of clarifying documentation and are not made part of the Legal Health Record. Thank you in advance for your clarification. Last Revision, April 2015 Janeth Perez [address] [facility] [facility] [place] [address] Documentation Clarification Form Date: 12/29/2016 10:38:00 AM From: Radha Cottrell CCS, CCDS Admit Date: 12/18/2016 2:40:00 AM Patient Name: Jn Stevenson Visit Number: [id number] Discharge Date: Dr. Shanthi Gaffney: Per the 12/27 pulmonary progress note: "Patient was reevaluated today on ""2016"", continues to do relatively well, patient is on diuretics for his congestive heart failure, he is also on anticoagulation therapy for his DVT and pulmonary embolism." Patient history/risk factors: Paroxysmal Atrial fibrillation, Systolic CHF EF 40 -45%, Hypertension, Hyperlipidemia, Cardiac valve replacement, Former smoker. Clinical Indicators: Patient presented with SOB, diagnosed with PE, Acute on Chronic systolic CHF & RLE Cellulitis. Radiology findings: 12/17 Venous US Doppler bilateral Lower Extremities: negative for DVT bilaterally. Treatment: IV Heparin & IV Lasix for treatment of CHF & lower extremity edema. Consults: Pulmonary, Cardiology, Infection Disease. In your professional opinion, can you please clarify the diagnosis of DVT. DVT o Present on Admission o Clarify site if known Other Unable to determine Please document in your progress notes and discharge summary in order to capture severity of illness and risk of mortality. Include clinical findings that support your diagnosis. FYI: Press F11 to launch patient chart. Place X here if this finding has no clinical significance, is not applicable or if you are not able to provide any additional documentation. Thank You. WILSON
--- NOTE | 2016-12-29 11:22 | P.PN ---
Subjective Principal diagnosis: This is a very pleasant 71-year-old gentleman with a history of pulmonary hypertension, paroxysmal atrial fibrillation anticoagulated with warfarin, ruptured chordae tendon he was severe mitral regurgitation and aortic valve disease. 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 The patient had subsequently been discharged from that hospitalization and returned with increasing shortness of breath and significant congestive heart failure. He also had a sternal wound dehiscence that Dr. Riggs had repaired with a sternal exploration and debridement and wound closure with bilateral pectoralis muscle flaps. From that hospitalization he was transferred to [facility] inpatient rehabilitation with Dr. Christina. While there he again developed recurrent pleural effusion and congestive heart failure requiring repeated thoracentesis as well. MEGHAN drain fluid was positive for NH fail as influenza and Serratia marcescens. He was transferred back here 11/13/2016 for continuation of care. Again subsequently discharged to [facility] and was doing fairly well. He really presented here to the emergency room yesterday with complaints of increasing shortness of breath. His chest x-ray showed unchanged cardiomegaly with central pulmonary vascular congestion and a stable right basilar opacity a moderate sized right pleural effusion. There is decreased left pleural effusion compared to previous x-ray 11/23/2016. A CT angiogram revealed an acute pulmonary emboli in the left lower lobe subsegmental pulmonary arteries. There is posterior right upper lobe segmental pulmonary embolus, possibly chronic. There is slight flattening of the intraventricular septum that may represent right heart strain. Again noted moderate right and small left pleural effusions with adjacent opacities suspicious for pneumonia. He did have significant lower extremity edema with cellulitis however venous Dopplers revealed no DVTs. The patient is seen today in consultation on the selective care unit. He is currently awake and alert in no acute distress. He is resting fairly comfortably in bed. He is maintaining O2 saturations in the 90s on 3 L/m per nasal cannula. No leukocytosis, hemoglobin 8.3, INR 1.7, proBNP 4950. Initial lactic 2.5, currently 1.2. He denies any worsening shortness of breath, he is doing better today as compared to yesterday but still dyspneic on minimal exertion. He denies any productive cough or congestion. Patient was reevaluated today on 12/27/2016, continues to do relatively well, patient is on diuretics for his congestive heart failure, his also on anticoagulation therapy for his DVT and pulmonary embolism. Doing well, shortness of breath is significantly improved. No chest pain, no fever, no chills, patient is being followed by many consultants including infectious disease for his cellulitis of the left lower extremity. WBC count is 9.3 hemoglobin is 8.0 electrolytes are relatively normal. Bicarb is 37 BUN is 27 creatinine is 1.0. Last chest x-ray was few days ago, and it did show evidence of congestive heart failure and small right pleural effusion. Clinically however the patient is improving, more diuretics were added by cardiology on the case. Reevaluated today on 12/28/2016, patient continues to do relatively well in spite of his multiple medical issues. Less shortness of breath, ambulating with the use of a walker in the hallway. INR is 3.7 electrolytes were reviewed renal profile is relatively unremarkable. Last chest x-ray from yesterday continues to show some congestive heart failure. The patient was seen again today 12/29/2016 in follow-up on the selective care unit. He is currently sitting up in the chair at the bedside. He is awake and alert in no acute distress. He states he is feeling better today as compared to yesterday. He has received 1 unit of packed red blood cells. Stool for occult blood was negative. He has been hemodynamically stable. He is maintaining good O2 saturations in the upper 90s on room air. He is afebrile. His most recent chest x-ray did reveal improvement of his congestive heart failure. He remains on a Lasix drip at 15 mg per hour. He remains anticoagulated with warfarin. Objective - Vital Signs Vital signs: Vital Signs Temp 96.8 F L 12/29/16 08:00 Pulse 80 12/29/16 08:18 Resp 16 12/29/16 08:00 BP 95/56 12/29/16 08:00 Pulse Ox 94 L 12/29/16 08:06 Intake & Output 12/28/16 12/29/16 12/29/16 18:59 06:59 18:59 Intake Total 720 560 240 Output Total 1600 2680 800 Balance -880 -2120 -560 Weight 106.9 kg Intake: Intake, IV Titration 250 Amount Furosemide 250 mg In 250 Sodium Chloride 0.9% 225 ml @ 15 MG/HR 15 mls/hr IVP .[id number] [facility] Rx#: [id number] Oral 720 240 Blood Product 310 Rc As-1 Unit 310 [id number] Output: Urine 1600 2680 800 Other: Voiding Method Urinal Urinal # Voids 1 2 2 - Exam GENERAL EXAM: Alert, active, comfortable in no apparent distress. HEAD: Normocephalic. EYES: Normal reaction of pupils, equal size. NOSE: Clear with pink turbinates. THROAT: No erythema or exudates. NECK: No masses, positive JVD. CHEST: Soft tissue swelling over previous sternal incision and repair of dehisced sternum. LUNGS: Equal air entry with crackles in the bilateral posterior bases. CVS: S1 and S2 normal with no audible murmurs, regular rhythm. ABDOMEN: No hepatosplenomegaly, normal bowel sounds, no guarding or rigidity. Extremities: There is 1-2+ lower extremity edema. No clubbing, no cyanosis. Peripheral pulses are intact. - Labs CBC & Chem 7: 12/29/16 04:24 12/28/16 05:32 Labs: Abnormal Lab Results - Last 24 Hours (Table) 12/28/16 12/29/16 Range/Units 13:46 04:24 RBC 3.58 L (4.30-5.90) m/uL Hgb 8.8 L (13.0-17.5) gm/dL Hct 27.8 L (39.0-53.0) % MCV 77.7 L (80.0-100.0) fL MCH 24.5 L (25.0-35.0) pg RDW 18.8 H (11.5-15.5) % Lymphocytes # 0.8 L (1.0-4.8) k/uL Crossmatch See Detail Assessment and Plan Plan: Impression: #1 Acute hypoxic respiratory failure, multifactorial secondary to acute pulmonary emboli in the left lower lobe subsegmental pulmonary arteries, acute exacerbation of chronic systolic congestive heart failure, bilateral pleural effusions. #2 Recent aortic valve replacement with bovine valve and mitral valve repair with mediastinal lymph node biopsy. #3 Histoplasmosis. #4 Sternal dehiscence requiring sternal exploration and debridement with wound closure with bilateral pectoralis muscle flaps. #5 Pulmonary hypertension. #6 Paroxysmal atrial fibrillation, anticoagulated with warfarin. #7 Hyperlipidemia. #8 Osteoarthritis. #9 History of thyroid cancer status post surgery/radiation. #10 History of right lower extremity DVT in September 2016. Negative Dopplers on this admission. #11 Overall poor functional performance secondary to the above-mentioned multiple comorbidities and extended inpatient stays and rehabilitation. Plan: The patient was seen and evaluated by Dr. Gaffney. He remains in a negative balance. Continue diuresing. Continue bronchodilators. We will increase his activity as tolerated. We will continue to follow and make further recommendations based on his clinical status.
[2016-12-29] MEDS: FUROSEMIDE 250 MG in SODIUM CHLORIDE 0.9% 225 ML IVP SCH (12:41)
--- NOTE | 2016-12-29 12:46 | P.PN ---
Subjective This patient is feeling well denies any orthopnea or PND. And has been diuresing fairly well he has lost about 5 kg of weight. Creatinine remained stable. Still continues to have a significant swelling in the legs and has a bilateral rales U of that we will recommend to continue the patient on IV Lasix drip. Objective - Vital Signs Vital signs: Vital Signs Temp 96.8 F L 12/29/16 08:00 Pulse 82 12/29/16 11:11 Resp 16 12/29/16 08:00 BP 95/56 12/29/16 08:00 Pulse Ox 90 L 12/29/16 11:11 Intake & Output 12/28/16 12/29/16 12/29/16 18:59 06:59 18:59 Intake Total 720 560 463.5 Output Total 1600 2680 1050 Balance -880 -2120 -586.5 Weight 106.9 kg Intake: Intake, IV Titration 250 223.5 Amount Furosemide 250 mg In 250 223.5 Sodium Chloride 0.9% 225 ml @ 15 MG/HR 15 mls/hr IVP .[id number] [facility] Rx#: [id number] Oral 720 240 Blood Product 310 Rc As-1 Unit 310 [id number] Output: Urine 1600 2680 1050 Other: Voiding Method Urinal Urinal # Voids 1 2 2 - Exam Vital signs are reviewed Our first and second heart sounds are normal Next bilateral scattered wheezes and rales are noted. Extremities there is a 2+ pedal edema. - Labs CBC & Chem 7: 12/29/16 04:24 12/28/16 05:32 Labs: Abnormal Lab Results - Last 24 Hours (Table) 12/28/16 12/29/16 Range/Units 13:46 04:24 RBC 3.58 L (4.30-5.90) m/uL Hgb 8.8 L (13.0-17.5) gm/dL Hct 27.8 L (39.0-53.0) % MCV 77.7 L (80.0-100.0) fL MCH 24.5 L (25.0-35.0) pg RDW 18.8 H (11.5-15.5) % Lymphocytes # 0.8 L (1.0-4.8) k/uL Crossmatch See Detail Assessment and Plan Plan: This patient's congestive heart failure is improving. Recommend to continue the patient on IV Lasix drip for next 24-48 hours as well as Zaroxolyn 2.5 mg daily patient's hemoglobin is 8.8.
--- NOTE | 2016-12-29 14:31 | P.PN ---
<Karyna Murray - Last Filed: 12/29/16 14:07> Progress Note - Text Presenting complaint: Short of breath Interval history: This is a patient with multiple medical problems who has a history of aortic valve replacement and mitral valve repair. She subsequently had sternal wound devices and had to have a pectoralis flap in place. Patient admitted this time with acute congestive heart failure exacerbation and acute pulmonary embolism. Patient has been in sinus rhythm. 12/27/2016: Today the is at the bedside. Patient been tolerating his diet. Not excessive activity edema is present. Patient did talk about [address] yesterday, with a walker. Telemetry showing sinus rhythm. Antibiotics have been discontinued per Dr. Ramos. Continue on Lasix drip I and O show negative fluid balance. December 28/2017: Today the patient is feeling better. Sitting up in a chair. Did tolerate his diet. Legs are Kieran wrapped. Edema still present 12/29/2016: Patient feels better today however anxious to go home, sitting in the chair, tolerating his diet, legs remain Kieran wrapped edema improved but present. Review of systems: Was done for constitutional, cardiovascular, GI, pulmonary. relevant finding as above Medications reviewed that included DuoNeb Cordarone IV Lasix drip at 15 mg/ hour and Zaroxolyn VITAL SIGNS: [Temperature 96.8, pulse 84, respiratory rate 16, blood pressure 95 /56, oxygen saturation 98% on room air.] GENERAL APPEARANCE: Sitting up in a chair, mildly short of breath at rest . EYES: Pupils equal. Conjunctiva normal. NECK: JVD unable to assess. Mass not palpable. RESPIRATORY: Respiratory effort increased. Lungs diminished breath sounds CARDIOVASCULAR: First and second sounds normal. edema present improved from previous day, legs Kieran wrapped. ABDOMEN: Soft, distended. Liver and spleen not palpable. No tenderness. No mass palpable. PSYCHIATRY: Alert and oriented x3. Mood and affect slightly anxious Labs:. 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 -Metabolic alkalosis probably from diuresis -Moderate protein calorie malnutrition, Plan: Continue with Lasix drip. Patient still fluid overloaded. Patient running hypotensive in the setting of anemia, patient received 1 unit of blood, to improve the blood pressure. We will send off iron studies B12 and also guaiac stool. Care was discussed with Dr. Rodgers from cardiology and the , Lasix drip to continue at 15 mg an hour patient should plan to be here at least another 2 days. <Alcon Dillon - Last Filed: 12/29/16 15:00> Progress Note - Text Date of service December 29/2017 Attending note: This patient was seen and examined by me today. I reviewed the note of my nurse practitioner Miss Murray. Agreed and discussed additional finding as below Patient remains on Lasix drip making good urine. Tolerating his diet. with him next on examination: edema present, JVD raised, crackles at the bases Acute on chronic congestive heart exacerbation slow to respond Plan: Continue with IV Lasix drip, discussed with patient and discussed with Dr. cardiology Dr. Rodgers follow electrolytes. s
[2016-12-29] MEDS: WARFARIN 2.5 MG TAB PO SCH (20:29)
[2016-12-29] MEDS: ASPIRIN 81 MG CHEW PO SCH (20:29)
[2016-12-29] MEDS: MULTIVITAMINS, THERA 1 EACH TAB PO SCH (20:29)
[2016-12-29] MEDS: MELATONIN 3 MG TABLET PO SCH (20:29)
[2016-12-29] MEDS: ATORVASTATIN 10 MG TAB PO SCH (20:29)
--- NOTE | 2016-12-29 21:37 | P.PN ---
Subjective Principal diagnosis: Shortness of breath This is a 71-year-old male well known to ID service who came in the hospital on September 23 and underwent a JAYDE and heart catheterization showing a ruptured chordae tendonae, mitral regurgitation, moderate pulmonary hypertension , with history of paroxysmal atrial fibrillation and heart failure. 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 With this the patient was initiated to itraconazole. He however developed atrial fibrillation. Because of this he was initiated to amiodarone. The dose of itraconazole was reduced by 50%. There is no evidence of alteration of the QT interval while he was in hospital. He eventually was discharged home. It is related that he was not able to obtain the itraconazole. In this is going to be addressed in the coming days. However he returned to [facility] emergency center due to shortness of breath and was hospitalized October 06 through October 30 at which time he required intubation and mechanical ventilation. He was successfully extubated. He was treated for dehiscence of sternal wires requiring sternal exploration, debridement and wound closure with bilateral pectoralis major myocutaneous advanced flaps. He also required chest tube placement for left pleural effusion and right thoracentesis for right pleural effusion with drainage of 1.5 L of dark red tinged fluid. Muscle flap procedure was done on October 15. Patient was stabilized and then transferred to [facility] for inpatient rehab under the care of Dr. Christina. He developed increasing shortness of breath and edema and was eventually transferred to the intensive care unit where he was found to be in atrial fibrillation with rapid ventricular response and acute systolic heart failure and underwent thoracentesis with removal of 1.6 L on the right chest. Eventually his status improved and after a stay with Dr. Reyes within the inpatient rehab unit he was transferred to the [facility] for ongoing physical therapy. He then developed some increasing shortness of breath and lower extremity edema. Duplex was performed without evidence of deep venous thrombosis. Because of patient was quite short of breath a CT angiogram was performed. Evidence of the pulmonary embolus. He has not been heparinized and feeling slightly better. He continues to have dyspnea on exertion and some orthopnea but is not complaining of PND. He is not having significant cough or sputum production and no hemoptysis. No bleeding in other sites. Feels better today had some SOB is now improved. Has occasional cough Looks forward to going to the ECF once he is off the Lasix drip and feeling better Objective - Vital Signs Vital signs: Vital Signs Temp 96.8 F L 12/29/16 19:42 Pulse 88 12/29/16 20:05 Resp 19 12/29/16 19:42 BP 84/50 12/29/16 19:42 Pulse Ox 92 L 12/29/16 19:42 Intake & Output 12/29/16 12/29/16 12/30/16 06:59 18:59 06:59 Intake Total 560 943.5 Output Total 2680 1850 Balance -2120 -906.5 Weight 106.9 kg Intake: Intake, IV Titration 250 223.5 Amount Furosemide 250 mg In 250 223.5 Sodium Chloride 0.9% 225 ml @ 15 MG/HR 15 mls/hr IVP .[id number] [facility] Rx#: [id number] Oral 720 Blood Product 310 Rc As-1 Unit 310 [id number] Output: Urine 2680 1850 Other: Voiding Method Urinal Urinal # Voids 2 1 - Exam This is a 71-year-old male. He appears comfortable and is able to sit up without significant difficulty. Relates that his shortness of breath is improved. HEENT: Head is atraumatic, normocephalic. Pupils equal, round. Sclerae is anicteric. Conjunctiva slightly pale. Mucous membranes of the mouth are dry. No thrush noted. NECK: Supple. No JVD. No lymphadenopathy. No thyromegaly. LUNGS: There is symmetrical air entry. There is evidence of a few basilar crackles. Scattered expiratory wheezes. HEART: Irregular with no murmur the sternal wound is now completely healed. He has evidence of the prior pectoralis muscle flap. There is evidence of some chronic skin color change is actually improving over time. The site is not warm. There are no open lesions or drainage. ABDOMEN: Distinctly distended. Bowel sounds are normal. Organomegaly is not detected. Abdomen is nontender. EXTREMITIES: +3 bilateral pedal edema. The edema is actually improved from the last visit. He has chronic skin color changes to the bilateral lower extremities. [place] sites are without purulence or difficulty. NEUROLOGICAL: Awake and alert. No acute gross focal sensory motor deficits except generalized weakness. Vocal quality improved - Labs CBC & Chem 7: 12/29/16 04:24 12/28/16 05:32 Labs: Abnormal Lab Results - Last 24 Hours (Table) 12/28/16 12/29/16 Range/Units 13:46 04:24 RBC 3.58 L (4.30-5.90) m/uL Hgb 8.8 L (13.0-17.5) gm/dL Hct 27.8 L (39.0-53.0) % MCV 77.7 L (80.0-100.0) fL MCH 24.5 L (25.0-35.0) pg RDW 18.8 H (11.5-15.5) % Lymphocytes # 0.8 L (1.0-4.8) k/uL Crossmatch See Detail Laboratory Results WBC 8.7 k/uL (3.8-10.6) 12/29/16 04:24 RBC 3.58 m/uL (4.30-5.90) L 12/29/16 04:24 Hgb 8.8 gm/dL (13.0-17.5) L 12/29/16 04:24 Hct 27.8 % (39.0-53.0) L 12/29/16 04:24 MCV 77.7 fL (80.0-100.0) L 12/29/16 04:24 MCH 24.5 pg (25.0-35.0) L 12/29/16 04:24 MCHC 31.5 g/dL (31.0-37.0) 12/29/16 04:24 RDW 18.8 % (11.5-15.5) H 12/29/16 04:24 Plt Count 314 k/uL (150-450) 12/29/16 04:24 Neutrophils % 80 % 12/29/16 04:24 Lymphocytes % 9 % 12/29/16 04:24 Monocytes % 5 % 12/29/16 04:24 Eosinophils % 3 % 12/29/16 04:24 Basophils % 1 % 12/29/16 04:24 Neutrophils # 6.9 k/uL (1.3-7.7) 12/29/16 04:24 Lymphocytes # 0.8 k/uL (1.0-4.8) L 12/29/16 04:24 Monocytes # 0.5 k/uL (0-1.0) 12/29/16 04:24 Eosinophils # 0.2 k/uL (0-0.7) 12/29/16 04:24 Basophils # 0.1 k/uL (0-0.2) 12/29/16 04:24 Hypochromasia Marked 12/29/16 04:24 Poikilocytosis Slight 12/29/16 04:24 Anisocytosis Slight 12/29/16 04:24 Microcytosis Slight 12/29/16 04:24 PT 36.4 sec (9.0-12.0) H 12/28/16 05:32 INR 3.7 (<1.1) 12/28/16 05:32 APTT 76.6 sec (22.0-30.0) H 12/25/16 05:41 D-Dimer 8.41 mg/L FEU (<0.60) H 12/17/16 21:37 Sodium 139 mmol/L (137-145) 12/28/16 05:32 Potassium 4.0 mmol/L (3.5-5.1) 12/28/16 05:32 Chloride 89 mmol/L (98-107) L 12/28/16 05:32 Carbon Dioxide 38 mmol/L (22-30) H 12/28/16 05:32 Anion Gap 12 mmol/L 12/28/16 05:32 BUN 24 mg/dL (9-20) H 12/28/16 05:32 Creatinine 1.07 mg/dL (0.66-1.25) 12/28/16 05:32 Est GFR (MDRD) Af Amer >60 (>60 ml/min/1.73 sqM) 12/28/16 05:32 Est GFR (MDRD) Non-Af >60 (>60 ml/min/1.73 sqM) 12/28/16 05:32 Glucose 87 mg/dL (74-99) 12/28/16 05:32 Plasma Lactic Acid Samir 1.2 mmol/L (0.7-2.0) 12/18/16 03:42 Calcium 6.6 mg/dL (8.4-10.2) L 12/28/16 05:32 Magnesium 1.9 mg/dL (1.6-2.3) 12/17/16 21:37 Total Bilirubin 0.7 mg/dL (0.2-1.3) 12/17/16 21:37 AST 37 U/L (17-59) 12/17/16 21:37 ALT 33 U/L (21-72) 12/17/16 21:37 Alkaline Phosphatase 81 U/L (38-126) 12/17/16 21:37 Total Creatine Kinase 42 U/L (55-170) L 12/17/16 21:37 CK-MB (CK-2) 2.2 ng/mL (0.0-2.4) 12/17/16 21:37 CK-MB (CK-2) Rel Index 5.2 12/17/16 21:37 Troponin I 0.013 ng/mL (0.000-0.034) 12/17/16 21:37 NT-Pro-B Natriuret Pep 4950 pg/mL 12/17/16 21:37 Total Protein 6.3 g/dL (6.3-8.2) 12/17/16 21:37 Albumin 2.4 g/dL (3.5-5.0) L 12/17/16 21:37 Vitamin D 25-Hydroxy 29.8 ng/mL (30.0-100.0) L 12/21/16 05:25 Urine Color Yellow 12/17/16 23:00 Urine Appearance Clear (Clear) 12/17/16 23:00 Urine pH 6.0 (5.0-8.0) 12/17/16 23:00 Ur Specific [place] 1.011 (1.001-1.035) 12/17/16 23:00 Urine Protein Negative (Negative) 12/17/16 23:00 Urine Glucose (UA) Negative (Negative) 12/17/16 23:00 Urine Ketones Negative (Negative) 12/17/16 23:00 Urine Blood Negative (Negative) 12/17/16 23:00 Urine Nitrite Negative (Negative) 12/17/16 23:00 Urine Bilirubin Negative (Negative) 12/17/16 23:00 Urine Urobilinogen 3.0 mg/dL (<2.0) 12/17/16 23:00 Ur Leukocyte Esterase Negative (Negative) 12/17/16 23:00 Stool Occult Blood Negative (Negative) 12/26/16 08:15 Digoxin 0.8 ng/mL 12/27/16 05:34 Blood Type O Positive 12/28/16 13:46 Blood Type Recheck No 12/28/16 13:46 Antibody Screen NEGATIVE 12/28/16 13:46 Crossmatch See Detail 12/28/16 13:46 Spec Expiration Date 12/31/2016 - 2346 12/28/16 13:46 Microbiology 12/17/16 21:37 Blood Blood Culture - Final No Growth after 144 hours Assessment and Plan (1) Pulmonary embolism Narrative/Plan: Pleasant 71-year-old male is a very recent extensive past medical history regarding his cardiovascular disease. His aortic valve replacement and mitral valve repair in the many ongoing complications he has had since the procedures. He presented hospital with increasing lower extremity edema but profoundly having shortness of breath. He had a CT antigram showing evidence of a new pulmonary embolus that have been found. He is now receiving anticoagulation. With this he started to feel somewhat better. Fluctuates have been wrapped and the extensive edema is much improved and noted admission. They are not tender. The chronic erythema is about at baseline. There is no ascending erythema. No evidence of any significant lymphadenopathy. Patient does not appear to have infection in the limbs at this time. It appears a pulmonary embolus caused worsening lower extremity edema that is now improving. Continue with elevation and wraps. Skin moisturization continues with Eucerin. Antibiotic therapy is discontinued. At admission there was no leukocytosis and no fevers. He's had a mild leukocytosis which has now resolved. But does not appear to have underlying infection at this time. Some worsening CHF has been treated now with a Lasix drip. With improved urine output is feeling better. Once his transition to oral Lasix will go back to the extended care facility. Looking forward to finishing his therapy at extended-care facility. Status: Acute (2) Atrial fibrillation with RVR Status: Acute (3) Status post aortic valve replacement Status: Acute (4) Status post mitral valve repair Status: Acute
[2016-12-30] MEDS: FUROSEMIDE 250 MG in SODIUM CHLORIDE 0.9% 225 ML IVP SCH (05:10)
[2016-12-30 05:46] LABS: Anisocytosis Slight; CH 23.5; CHCM 29.9; HCT 29.8 % (39.0-53.0); HGB 9.2 gm/dL (13.0-17.5); Hypochromasia Marked; MCH 24.2 pg (25.0-35.0); MCHC 30.9 g/dL (31.0-37.0); MCV 78.4 fL (80.0-100.0); Mean Platelet Volume 7.1; Microcytosis Slight; Poikilocytosis Slight; RDW 18.9 % (11.5-15.5); WBC 10.9 k/uL (3.8-10.6)
[2016-12-30 05:55] LABS: INR 2.4 (<1.1); Partial Thromboplastin Time 32.3 sec (22.0-30.0); Prothrombin Time 22.8 sec (9.0-12.0)
[2016-12-30 06:07] LABS: Blood Urea Nitrogen 37 mg/dL (9-20); Calcium 7.5 mg/dL (8.4-10.2); Chloride 83 mmol/L (98-107); Glucose 103 mg/dL (74-99); Iron 30 ug/dL (49-181); Non-African American GFR(MDRD) 50 (>60 ml/min/1.73 sqM); Potassium 4.1 mmol/L (3.5-5.1); Sodium 135 mmol/L (137-145)
[2016-12-30 06:13] LABS: Anion Gap 10 mmol/L
[2016-12-30 06:15] LABS: % Iron Saturation 10.5 % (20-50); Total Iron Binding Capacity 286 ug/dL (261-462)
[2016-12-30] MEDS: LEVOTHYROXINE 100 MCG TAB PO SCH (06:19)
[2016-12-30] MEDS: CALCIUM CARB-VIT D 500MG-200UN 1 EACH TAB PO SCH ×2 (06:20→17:30)
[2016-12-30] MEDS: METOPROLOL TARTRATE 25 MG TAB PO SCH ×3 (06:20→20:46)
[2016-12-30] MEDS: LEVOTHYROXINE 75 MCG TAB PO SCH (06:20)
[2016-12-30] MEDS: MINERAL OIL-WHITE PETROLATUM 120 GM JAR TOPICAL SCH ×2 (06:20→20:46)
[2016-12-30] MEDS: PANTOPRAZOLE 40 MG TABLET PO SCH (06:21)
[2016-12-30 06:56] LABS: Vitamin B12 664 pg/mL
[2016-12-30] MEDS: AMIODARONE 200 MG TAB PO SCH (08:57)
[2016-12-30] MEDS: SPIRONOLACTONE 25 MG TAB PO SCH (08:58)
[2016-12-30] MEDS: METOLAZONE 2.5 MG TAB PO SCH (08:58)
[2016-12-30 09:13] LABS: Total Protein 6.9 g/dL (6.3-8.2)
[2016-12-30] MEDS: IPRATROPIUM-ALBUTEROL 3 ML NEB INHALATION SCH ×3 (09:42→19:42)
--- NOTE | 2016-12-30 10:07 | XR ---
EXAMINATION TYPE: XR chest 1V portable DATE OF EXAM: 12/30/2016 HISTORY: chf. REFERENCE: Previous study dated 12/27/2016. FINDINGS: The lungs are overinflated. The heart is enlarged. There are bilateral effusions, greater o n the right than the left. There is increased opacity in the lung bases bilaterally. This may be due to layering fluid. I could not exclude some consolidation. The overall appearance is slightly worsene d from the previous study. IMPRESSION: SLIGHT WORSENING IN THE PATIENT'S CONGESTIVE HEART FAILURE.
--- NOTE | 2016-12-30 10:38 | P.PN ---
Subjective Principal diagnosis: Acute exacerbation of chronic congestive heart failure This is a very pleasant 71-year-old gentleman with a history of pulmonary hypertension, paroxysmal atrial fibrillation anticoagulated with warfarin, ruptured chordae tendon he was severe mitral regurgitation and aortic valve disease. 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 The patient had subsequently been discharged from that hospitalization and returned with increasing shortness of breath and significant congestive heart failure. He also had a sternal wound dehiscence that Dr. Riggs had repaired with a sternal exploration and debridement and wound closure with bilateral pectoralis muscle flaps. From that hospitalization he was transferred to [facility] inpatient rehabilitation with Dr. Christina. While there he again developed recurrent pleural effusion and congestive heart failure requiring repeated thoracentesis as well. MEGHAN drain fluid was positive for TX fail as influenza and Serratia marcescens. He was transferred back here 11/13/2016 for continuation of care. Again subsequently discharged to [facility] and was doing fairly well. He really presented here to the emergency room yesterday with complaints of increasing shortness of breath. His chest x-ray showed unchanged cardiomegaly with central pulmonary vascular congestion and a stable right basilar opacity a moderate sized right pleural effusion. There is decreased left pleural effusion compared to previous x-ray 11/23/2016. A CT angiogram revealed an acute pulmonary emboli in the left lower lobe subsegmental pulmonary arteries. There is posterior right upper lobe segmental pulmonary embolus, possibly chronic. There is slight flattening of the intraventricular septum that may represent right heart strain. Again noted moderate right and small left pleural effusions with adjacent opacities suspicious for pneumonia. He did have significant lower extremity edema with cellulitis however venous Dopplers revealed no DVTs. The patient is seen today in consultation on the selective care unit. He is currently awake and alert in no acute distress. He is resting fairly comfortably in bed. He is maintaining O2 saturations in the 90s on 3 L/m per nasal cannula. No leukocytosis, hemoglobin 8.3, INR 1.7, proBNP 4950. Initial lactic 2.5, currently 1.2. He denies any worsening shortness of breath, he is doing better today as compared to yesterday but still dyspneic on minimal exertion. He denies any productive cough or congestion. Patient was reevaluated today on 12/27/2016, continues to do relatively well, patient is on diuretics for his congestive heart failure, his also on anticoagulation therapy for his DVT and pulmonary embolism. Doing well, shortness of breath is significantly improved. No chest pain, no fever, no chills, patient is being followed by many consultants including infectious disease for his cellulitis of the left lower extremity. WBC count is 9.3 hemoglobin is 8.0 electrolytes are relatively normal. Bicarb is 37 BUN is 27 creatinine is 1.0. Last chest x-ray was few days ago, and it did show evidence of congestive heart failure and small right pleural effusion. Clinically however the patient is improving, more diuretics were added by cardiology on the case. Reevaluated today on 12/28/2016, patient continues to do relatively well in spite of his multiple medical issues. Less shortness of breath, ambulating with the use of a walker in the hallway. INR is 3.7 electrolytes were reviewed renal profile is relatively unremarkable. Last chest x-ray from yesterday continues to show some congestive heart failure. The patient was seen again today 12/29/2016 in follow-up on the selective care unit. He is currently sitting up in the chair at the bedside. He is awake and alert in no acute distress. He states he is feeling better today as compared to yesterday. He has received 1 unit of packed red blood cells. Stool for occult blood was negative. He has been hemodynamically stable. He is maintaining good O2 saturations in the upper 90s on room air. He is afebrile. His most recent chest x-ray did reveal improvement of his congestive heart failure. He remains on a Lasix drip at 15 mg per hour. He remains anticoagulated with warfarin. The patient is seen again today 12/30/2016 in follow-up on the selective care unit. He is awake and alert in no acute distress. His chest x-ray today continues to show evidence of congestive heart failure. He remains on a Lasix drip. He remains in a greater than -3 L balance. He is in no acute respiratory distress. He is still not quite back to his baseline however. He does still require 4 L/m per nasal cannula to maintain O2 saturations in the low 90s. He' s been afebrile. Blood pressure remains borderline low however he denies any dizziness or lightheadedness. Mean arterial pressures remain greater than 60. Hemoglobin stable at 9.2. INR 2.4. Creatinine 1.40. Objective - Vital Signs Vital signs: Vital Signs Temp 97.0 F L 12/30/16 02:35 Pulse 90 12/30/16 09:56 Resp 18 12/30/16 02:35 BP 88/48 12/30/16 06:26 Pulse Ox 99 12/30/16 09:43 Intake & Output 12/29/16 12/30/16 12/30/16 18:59 06:59 18:59 Intake Total 943.5 337.25 360 Output Total 1850 4800 875 Balance -906.5 -4462.75 -515 Weight 100.8 kg Intake: IV 90 Furosemide 250 mg In 90 Sodium Chloride 0.9% 225 ml @ 15 MG/HR 15 mls/hr IVP .[id number] [facility] Rx#: [id number] Intake, IV Titration 223.5 247.25 Amount Furosemide 250 mg In 223.5 247.25 Sodium Chloride 0.9% 225 ml @ 15 MG/HR 15 mls/hr IVP .[id number] [facility] Rx#: [id number] Oral 720 360 Output: Urine 1850 4800 875 Other: Voiding Method Urinal Urinal # Voids 1 3 2 # Bowel Movements 0 - Exam GENERAL EXAM: Alert, active, comfortable in no apparent distress. HEAD: Normocephalic. EYES: Normal reaction of pupils, equal size. NOSE: Clear with pink turbinates. THROAT: No erythema or exudates. NECK: No masses, positive JVD. CHEST: Soft tissue swelling over previous sternal incision and repair of dehisced sternum. LUNGS: Equal air entry with crackles in the bilateral posterior bases. CVS: S1 and S2 normal with no audible murmurs, regular rhythm. ABDOMEN: No hepatosplenomegaly, normal bowel sounds, no guarding or rigidity. Extremities: There is 1-2+ lower extremity edema. No clubbing, no cyanosis. Peripheral pulses are intact. - Labs CBC & Chem 7: 12/30/16 05:27 12/30/16 05:27 Labs: Abnormal Lab Results - Last 24 Hours (Table) 12/30/16 12/30/16 12/30/16 Range/Units 05:27 05:27 05:27 WBC 10.9 H (3.8-10.6) k/uL RBC 3.80 L (4.30-5.90) m/uL Hgb 9.2 L (13.0-17.5) gm/dL Hct 29.8 L (39.0-53.0) % MCV 78.4 L (80.0-100.0) fL MCH 24.2 L (25.0-35.0) pg MCHC 30.9 L (31.0-37.0) g/dL RDW 18.9 H (11.5-15.5) % PT 22.8 H (9.0-12.0) sec APTT 32.3 H (22.0-30.0) sec Sodium 135 L (137-145) mmol/L Chloride 83 L (98-107) mmol/L Carbon Dioxide 42 H* (22-30) mmol/L BUN 37 H (9-20) mg/dL Creatinine 1.40 H (0.66-1.25) mg/dL Glucose 103 H (74-99) mg/dL Calcium 7.5 L (8.4-10.2) mg/dL Iron 30 L (49-181) ug/dL % Saturation 10.5 L (20-50) % Albumin (3.5-5.0) g/dL 12/30/16 Range/Units 05:27 WBC (3.8-10.6) k/uL RBC (4.30-5.90) m/uL Hgb (13.0-17.5) gm/dL Hct (39.0-53.0) % MCV (80.0-100.0) fL MCH (25.0-35.0) pg MCHC (31.0-37.0) g/dL RDW (11.5-15.5) % PT (9.0-12.0) sec APTT (22.0-30.0) sec Sodium (137-145) mmol/L Chloride (98-107) mmol/L Carbon Dioxide (22-30) mmol/L BUN (9-20) mg/dL Creatinine (0.66-1.25) mg/dL Glucose (74-99) mg/dL Calcium (8.4-10.2) mg/dL Iron (49-181) ug/dL % Saturation (20-50) % Albumin 2.7 L (3.5-5.0) g/dL Assessment and Plan Plan: Impression: #1 Acute hypoxic respiratory failure, multifactorial secondary to acute pulmonary emboli in the left lower lobe subsegmental pulmonary arteries, acute exacerbation of chronic systolic congestive heart failure, bilateral pleural effusions. #2 Recent aortic valve replacement with bovine valve and mitral valve repair with mediastinal lymph node biopsy. #3 Histoplasmosis. #4 Sternal dehiscence requiring sternal exploration and debridement with wound closure with bilateral pectoralis muscle flaps. #5 Pulmonary hypertension. #6 Paroxysmal atrial fibrillation, anticoagulated with warfarin. #7 Hyperlipidemia. #8 Osteoarthritis. #9 History of thyroid cancer status post surgery/radiation. #10 History of right lower extremity DVT in September 2016. Negative Dopplers on this admission. #11 Overall poor functional performance secondary to the above-mentioned multiple comorbidities and extended inpatient stays and rehabilitation. Plan: The patient was seen and evaluated by Dr. Gaffney. His chest x-ray and labs were reviewed. He does remain in congestive heart failure. Continue Lasix drip. He remains in a negative balance. Continue bronchodilators. We will increase his activity as tolerated. We will continue to follow and make further recommendations based on his clinical status.
--- NOTE | 2016-12-30 14:35 | P.PN ---
<Karyna Murray - Last Filed: 12/30/16 18:52> Progress Note - Text Presenting complaint: Short of breath Interval history: This is a patient with multiple medical problems who has a history of aortic valve replacement and mitral valve repair. He subsequently had sternal wound dehissence and had to have a pectoralis flap in place. Patient admitted this time with acute congestive heart failure exacerbation and acute pulmonary embolism. Patient has been in sinus rhythm. 12/27/2016: Today the is at the bedside. Patient been tolerating his diet. Not excessive activity edema is present. Patient did talk about [address] yesterday, with a walker. Telemetry showing sinus rhythm. Antibiotics have been discontinued per Dr. Ramos. Continue on Lasix drip I and O show negative fluid balance. December 28/2017: Today the patient is feeling better. Sitting up in a chair. Did tolerate his diet. Legs are Kieran wrapped. Edema still present 12/29/2016: Patient feels better today however anxious to go home, sitting in the chair, tolerating his diet, legs remain Kieran wrapped edema improved but present 12/30/2016: Sitting at the bedside, working with physical therapy, tolerating his diet eating 50-75% of each meal, edema present continues to improve, negative fluid balance, patient very anxious to return to rehab, to get better and go home. Review of systems: Was done for constitutional, cardiovascular, GI, pulmonary. relevant finding as above Medications reviewed that included DuoNeb Cordarone IV Lasix drip at 15 mg/ hour and Zaroxolyn 2.5 mg VITAL SIGNS: [Temperature 96.8 pulse 86, respiratory rate 16, blood pressure 95/ 56, oxygen saturation 98% on room air. GENERAL APPEARANCE: Sitting up in a chair, mildly short of breath at rest . EYES: Pupils equal. Conjunctiva normal. NECK: JVD present. Mass not palpable. RESPIRATORY: Respiratory effort increased. Lungs diminished breath sounds CARDIOVASCULAR: First and second sounds normal. edema present continues to be improved from previous day, legs Kieran wrapped. ABDOMEN: Soft, distended. Liver and spleen not palpable. No tenderness. No mass palpable. PSYCHIATRY: Alert and oriented x3. Mood and affect slightly anxious Labs:. White blood cell count 10.9, hemoglobin 9.2, INR 2.4, sodium 135, BUN 37, creatinine 1.40, iron 30, TIBC 286, percent saturation 10.5. Chest x-ray: Study worsening CHF from previous days exam. 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 -Metabolic alkalosis probably from diuresis -Moderate protein calorie malnutrition, Plan: Continue with Lasix drip as patient remains fluid overloaded. We'll monitor kidney function closely as there is been a slight rise in creatinine since initiation of the Lasix drip. Patient running hypotensive may be due to antihypertensives, we'll reevaluate dosing schedule with cardiology, Care was discussed with patient and the , Lasix drip to continue at 15 mg an hour patient should plan to be here at least another 2 days. <Alcon Dillon - Last Filed: 12/30/16 23:13> Progress Note - Text Attending note. Date of service-12/30/2016 This patient was seen and examined by me today. I reviewed the note of my nurse practitioner, Ms. Murray. Discussed with her, additional findings as below This patient with multiple medical problems remains on IV Lasix continues to be negative fluid balance. Overall patient been close to 14 L negative fluid balance. On examination: JVD raised, decreased breath sounds, edema still present significant but decreased Assessment and plan: Acute on chronic congestive heart failure exacerbation uncontrolled. On IV Lasix Symptomatic anemia, microcytic, status post 1 unit unit of blood, multifactorial. It is possible patient may be having a very slow GI bleed given the fact that he is on Coumadin but patient is not a stable candidate for any endoscopy given his cardio pulmonary status. At this point will continue with anticoagulation and keep a close eye on hemodynamics. Care was discussed with the patient and and daughter expect the patient to be here over the weekend. Metabolic alkalosis from volume contraction, we'll add Diamox
--- NOTE | 2016-12-30 15:03 | P.PN ---
Subjective Principal diagnosis: Pulmonary embolism congestive cardiac failure This is a 71-year-old gentleman with history of prior valve surgery, CABG, sternal dehiscence, atrial flutter with congestive heart failure, admitted to the hospital with pulmonary embolism. Patient also showed evidence of congestive heart failure and is been diuresing very well on IV Lasix drip. His weight today is down 6 kg. Creatinine 1.4 from 1.0 yesterday. Blood pressure 90/50, heart rate in the 80s. Objective - Vital Signs Vital signs: Vital Signs Temp 97.0 F L 12/30/16 02:35 Pulse 92 12/30/16 13:33 Resp 16 12/30/16 08:00 BP 81/50 12/30/16 08:00 Pulse Ox 99 12/30/16 09:43 Intake & Output 12/29/16 12/30/16 12/30/16 18:59 06:59 18:59 Intake Total 943.5 337.25 600 Output Total 1850 4800 875 Balance -906.5 -4462.75 -275 Weight 100.8 kg Intake: IV 90 Furosemide 250 mg In 90 Sodium Chloride 0.9% 225 ml @ 15 MG/HR 15 mls/hr IVP .[id number] STEVAN Rx#: [id number] Intake, IV Titration 223.5 247.25 Amount Furosemide 250 mg In 223.5 247.25 Sodium Chloride 0.9% 225 ml @ 15 MG/HR 15 mls/hr IVP .[id number] STEVAN Rx#: [id number] Oral 720 600 Output: Urine 1850 4800 875 Other: Voiding Method Urinal Urinal Urinal # Voids 1 3 2 # Bowel Movements 0 - Exam PHYSICAL EXAMINATION: HEENT: Head is atraumatic, normocephalic. Pupils equal, round. Neck is supple. There is no elevated jugular venous pressure. HEART EXAMINATION: Heart S1, S2 normal. No murmur or gallop heard. CHEST EXAMINATION: Lungs are clear to auscultation and precussion. No chest wall tenderness is noted on palpation or with deep breathing. ABDOMEN: Soft, nontender. Bowel sounds are heard. No organomegaly noted. EXTREMITIES:[ 2+ peripheral pulses with improvement in peripheral edema and no calf tenderness noted]. NEUROLOGIC [patient is awake, alert and oriented -3.] . - Labs CBC & Chem 7: 12/30/16 05:27 12/30/16 05:27 Labs: Abnormal Lab Results - Last 24 Hours (Table) 12/30/16 12/30/16 12/30/16 Range/Units 05:27 05:27 05:27 WBC 10.9 H (3.8-10.6) k/uL RBC 3.80 L (4.30-5.90) m/uL Hgb 9.2 L (13.0-17.5) gm/dL Hct 29.8 L (39.0-53.0) % MCV 78.4 L (80.0-100.0) fL MCH 24.2 L (25.0-35.0) pg MCHC 30.9 L (31.0-37.0) g/dL RDW 18.9 H (11.5-15.5) % PT 22.8 H (9.0-12.0) sec APTT 32.3 H (22.0-30.0) sec Sodium 135 L (137-145) mmol/L Chloride 83 L (98-107) mmol/L Carbon Dioxide 42 H* (22-30) mmol/L BUN 37 H (9-20) mg/dL Creatinine 1.40 H (0.66-1.25) mg/dL Glucose 103 H (74-99) mg/dL Calcium 7.5 L (8.4-10.2) mg/dL Iron 30 L (49-181) ug/dL % Saturation 10.5 L (20-50) % Albumin (3.5-5.0) g/dL 12/30/16 Range/Units 05:27 WBC (3.8-10.6) k/uL RBC (4.30-5.90) m/uL Hgb (13.0-17.5) gm/dL Hct (39.0-53.0) % MCV (80.0-100.0) fL MCH (25.0-35.0) pg MCHC (31.0-37.0) g/dL RDW (11.5-15.5) % PT (9.0-12.0) sec APTT (22.0-30.0) sec Sodium (137-145) mmol/L Chloride (98-107) mmol/L Carbon Dioxide (22-30) mmol/L BUN (9-20) mg/dL Creatinine (0.66-1.25) mg/dL Glucose (74-99) mg/dL Calcium (8.4-10.2) mg/dL Iron (49-181) ug/dL % Saturation (20-50) % Albumin 2.7 L (3.5-5.0) g/dL Assessment and Plan (1) Pulmonary embolism Status: Acute (2) Diastolic CHF, acute on chronic Status: Acute (3) S/P AVR Status: Acute (4) Histoplasmosis Status: Acute (5) Sternal wound dehiscence Status: Acute (6) Pulmonary HTN Status: Acute (7) Paroxysmal a-fib Status: Acute (8) Hyperlipemia Status: Acute Plan: From cardiology's perspective, we'll discontinue the Lasix drip, start the patient on Lasix 40 mg IV twice a day. Continue Zaroxolyn 2.5 mg daily. Check lytes BUN and creatinine in the morning. DNP note has been reviewed, I agree with a documented findings and plan of care. Patient was seen and examined.
[2016-12-30] MEDS: LISINOPRIL 2.5 MG TAB PO SCH (17:27)
[2016-12-30] MEDS: FERROUS SULFATE 325 MG TAB PO SCH (17:30)
[2016-12-30] MEDS: ASPIRIN 81 MG CHEW PO SCH (20:46)
[2016-12-30] MEDS: ATORVASTATIN 10 MG TAB PO SCH (20:46)
[2016-12-30] MEDS: MELATONIN 3 MG TABLET PO SCH (20:46)
[2016-12-30] MEDS: FUROSEMIDE 10 MG/ML 4 ML VIAL IV SCH (20:47)
[2016-12-30] MEDS: MULTIVITAMINS, THERA 1 EACH TAB PO SCH (20:47)
[2016-12-30] MEDS: WARFARIN 2.5 MG TAB PO SCH (20:47)
--- NOTE | 2016-12-30 21:08 | P.PN ---
Subjective Principal diagnosis: Shortness of breath This is a 71-year-old male well known to ID service who came in the hospital on September 23 and underwent a JAYDE and heart catheterization showing a ruptured chordae tendonae, mitral regurgitation, moderate pulmonary hypertension , with history of paroxysmal atrial fibrillation and heart failure. 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 With this the patient was initiated to itraconazole. He however developed atrial fibrillation. Because of this he was initiated to amiodarone. The dose of itraconazole was reduced by 50%. There is no evidence of alteration of the QT interval while he was in hospital. He eventually was discharged home. It is related that he was not able to obtain the itraconazole. In this is going to be addressed in the coming days. However he returned to [facility] emergency center due to shortness of breath and was hospitalized October 06 through October 30 at which time he required intubation and mechanical ventilation. He was successfully extubated. He was treated for dehiscence of sternal wires requiring sternal exploration, debridement and wound closure with bilateral pectoralis major myocutaneous advanced flaps. He also required chest tube placement for left pleural effusion and right thoracentesis for right pleural effusion with drainage of 1.5 L of dark red tinged fluid. Muscle flap procedure was done on October 15. Patient was stabilized and then transferred to [facility] [place] for inpatient rehab under the care of Dr. Christina. He developed increasing shortness of breath and edema and was eventually transferred to the intensive care unit where he was found to be in atrial fibrillation with rapid ventricular response and acute systolic heart failure and underwent thoracentesis with removal of 1.6 L on the right chest. Eventually his status improved and after a stay with Dr. Reyes within the inpatient rehab unit he was transferred to the [facility] for ongoing physical therapy. He then developed some increasing shortness of breath and lower extremity edema. Duplex was performed without evidence of deep venous thrombosis. Because of patient was quite short of breath a CT angiogram was performed. Evidence of the pulmonary embolus. He has not been heparinized and feeling slightly better. He continues to have dyspnea on exertion and some orthopnea but is not complaining of PND. He is not having significant cough or sputum production and no hemoptysis. No bleeding in other sites. Feels better today had some SOB is now improved. Has occasional cough Looks forward to going to the ECF once he is off the Lasix drip and feeling better Objective - Vital Signs Vital signs: Vital Signs Temp 97.9 F 12/30/16 20:00 Pulse 94 12/30/16 20:00 Resp 17 12/30/16 20:00 BP 100/53 12/30/16 20:00 Pulse Ox 90 L 12/30/16 20:00 Intake & Output 12/30/16 12/30/16 12/31/16 06:59 18:59 06:59 Intake Total 337.25 600 Output Total 4800 1675 350 Balance -4462.75 -1075 -350 Weight 100.8 kg Intake: IV 90 Furosemide 250 mg In 90 Sodium Chloride 0.9% 225 ml @ 15 MG/HR 15 mls/hr IVP .[id number] STEVAN Rx#: [id number] Intake, IV Titration 247.25 Amount Furosemide 250 mg In 247.25 Sodium Chloride 0.9% 225 ml @ 15 MG/HR 15 mls/hr IVP .[id number] STEVAN Rx#: [id number] Oral 600 Output: Urine 4800 1675 350 Other: Voiding Method Urinal Urinal Urinal # Voids 3 3 # Bowel Movements 1 - Exam This is a 71-year-old male. He appears comfortable and is able to sit up without significant difficulty. Relates that his shortness of breath is improved. HEENT: Head is atraumatic, normocephalic. Pupils equal, round. Sclerae is anicteric. Conjunctiva slightly pale. Mucous membranes of the mouth are dry. No thrush noted. NECK: Supple. No JVD. No lymphadenopathy. No thyromegaly. LUNGS: There is symmetrical air entry. There is evidence of a few basilar crackles. Scattered expiratory wheezes. HEART: Irregular with no murmur the sternal wound is now completely healed. He has evidence of the prior pectoralis muscle flap. There is evidence of some chronic skin color change is actually improving over time. The site is not warm. There are no open lesions or drainage. ABDOMEN: Distinctly distended. Bowel sounds are normal. Organomegaly is not detected. Abdomen is nontender. EXTREMITIES: +3 bilateral pedal edema. The edema is actually improved from the last visit. He has chronic skin color changes to the bilateral lower extremities. [place] sites are without purulence or difficulty. NEUROLOGICAL: Awake and alert. No acute gross focal sensory motor deficits except generalized weakness. Vocal quality improved - Labs CBC & Chem 7: 12/30/16 05:27 12/30/16 05:27 Labs: Abnormal Lab Results - Last 24 Hours (Table) 12/30/16 12/30/16 12/30/16 Range/Units 05:27 05:27 05:27 WBC 10.9 H (3.8-10.6) k/uL RBC 3.80 L (4.30-5.90) m/uL Hgb 9.2 L (13.0-17.5) gm/dL Hct 29.8 L (39.0-53.0) % MCV 78.4 L (80.0-100.0) fL MCH 24.2 L (25.0-35.0) pg MCHC 30.9 L (31.0-37.0) g/dL RDW 18.9 H (11.5-15.5) % PT 22.8 H (9.0-12.0) sec APTT 32.3 H (22.0-30.0) sec Sodium 135 L (137-145) mmol/L Chloride 83 L (98-107) mmol/L Carbon Dioxide 42 H* (22-30) mmol/L BUN 37 H (9-20) mg/dL Creatinine 1.40 H (0.66-1.25) mg/dL Glucose 103 H (74-99) mg/dL Calcium 7.5 L (8.4-10.2) mg/dL Iron 30 L (49-181) ug/dL % Saturation 10.5 L (20-50) % Albumin (3.5-5.0) g/dL 12/30/16 Range/Units 05:27 WBC (3.8-10.6) k/uL RBC (4.30-5.90) m/uL Hgb (13.0-17.5) gm/dL Hct (39.0-53.0) % MCV (80.0-100.0) fL MCH (25.0-35.0) pg MCHC (31.0-37.0) g/dL RDW (11.5-15.5) % PT (9.0-12.0) sec APTT (22.0-30.0) sec Sodium (137-145) mmol/L Chloride (98-107) mmol/L Carbon Dioxide (22-30) mmol/L BUN (9-20) mg/dL Creatinine (0.66-1.25) mg/dL Glucose (74-99) mg/dL Calcium (8.4-10.2) mg/dL Iron (49-181) ug/dL % Saturation (20-50) % Albumin 2.7 L (3.5-5.0) g/dL Microbiology 12/17/16 21:37 Blood Blood Culture - Final No Growth after 144 hours Assessment and Plan (1) Pulmonary embolism Narrative/Plan: Pleasant 71-year-old male is a very recent extensive past medical history regarding his cardiovascular disease. His aortic valve replacement and mitral valve repair in the many ongoing complications he has had since the procedures. He presented hospital with increasing lower extremity edema but profoundly having shortness of breath. He had a CT antigram showing evidence of a new pulmonary embolus that have been found. He is now receiving anticoagulation. With this he started to feel somewhat better. Fluctuates have been wrapped and the extensive edema is much improved and noted admission. They are not tender. The chronic erythema is about at baseline. There is no ascending erythema. No evidence of any significant lymphadenopathy. Patient does not appear to have infection in the limbs at this time. It appears a pulmonary embolus caused worsening lower extremity edema that is now improving. Continue with elevation and wraps. Skin moisturization continues with Eucerin. Antibiotic therapy is discontinued. At admission there was no leukocytosis and no fevers. He's had a mild leukocytosis which has now resolved. But does not appear to have underlying infection at this time. Some worsening CHF has been treated now with a Lasix drip. With improved urine output is feeling better. Once his transition to oral Lasix will go back to the extended care facility. Looking forward to finishing his therapy at extended-care facility. Status: Acute (2) Atrial fibrillation with RVR Status: Acute (3) Status post aortic valve replacement Status: Acute (4) Status post mitral valve repair Status: Acute
--- NOTE | 2016-12-30 22:59 | P.CONS ---
History of Present Illness - Reason for Consult Consult date: 12/30/16 Anemia, anticoagulation - History of Present Illness The patient is 71-year-old gentleman with multiple medical problems. He had cardiac valve surgery in 10/11. At that time he also had mediastinoscopy for lymphadenopathy and was diagnosed with histoplasmosis. Since then he has had multiple admissions, including for congestive heart failure and wound dehiscence, requiring debridement and repair with muscle flaps, infected pleural effusion, and now, with increasing shortness of breath. He was found to have bilateral pulmonary emboli, with negative Dopplers. He was also in congestive heart failure. On admission, INR was subtherapeutic at 1.7. He had previously been on Coumadin for history of atrial fibrillation. He was transitioned back over to Coumadin and has had therapeutic INRs since. The patient's hemoglobin was near normal prior to his initial surgery in . Since then hemoglobin has been low, usually in the 8-9 range. During this admission, hemoglobin did drop briefly into the 7 range, after which he received 1 unit of blood. Hemoglobin did respond appropriately, and has been stable since then. The patient denied any history of obvious bleeding, or prior history of blood problems. He did have iron studies done in during this admission which showed low saturation but also low TIBC. Ferritin was not done. Review of Systems Constitutional: Reports fatigue, Reports poor appetite, Reports weakness Eyes: denies blurred vision, denies pain Ears: deny: decreased hearing, ear discharge, earache, tinnitus Ears, nose, mouth and throat: Denies headache, Denies sore throat Cardiovascular: Reports as per HPI, Reports dyspnea on exertion, Reports edema, Reports irregular heart beat, Reports leg edema, Reports orthopnea Respiratory: Reports dyspnea Gastrointestinal: Denies abdominal pain, Denies diarrhea, Denies nausea, Denies vomiting Genitourinary: Reports as per HPI Musculoskeletal: Reports muscle weakness Integumentary: Reports wounds (Sternal wound dehiscence, status post debridement and repair), Denies pruritus, Denies rash Neurological: Reports weakness Psychiatric: Denies anxiety, Denies depression Endocrine: Denies fatigue, Denies weight change Hematologic/Lymphatic: Reports as per HPI, Reports thrombophilia (Secondary, related to recent illnesses and multiple admissions) Past Medical History Past Medical History: Atrial Fibrillation, Cancer, Heart Failure, Hyperlipidemia , Osteoarthritis (OA), Thyroid Disorder Additional Past Medical History / Comment(s): Current mediastinal lymphadenopathy with histoplasmosis being tx with ABX by Dr. Ramos, THYROID CANCER with surgery/radiation, varicose veins, rheumatic fever, paroxysmal atrial fibrillation, aortic valve insufficiency and mitral valve regurgitation- recent valvular surgery, moderate pulmonary hypertension History of Any Multi-Drug Resistant Organisms: None Reported Past Surgical History: Cardiac Valve Replacement, Heart Catheterization, Joint Replacement Additional Past Surgical History / Comment(s): thyroidectomy, total left knee replacement, 08/2016cardiac cath/fabiola, 09/29/16 aortic valve replacement with bovine valve, mitral valve repair, mediastinal lymph node biopsy, colonoscopies/ polypectomy-benign. Past Anesthesia/Blood Transfusion Reactions: No Reported Reaction Past Psychological History: No Psychological Hx Reported Smoking Status: Former smoker Past Alcohol Use History: Rare Past Drug Use History: None Reported - Past Family History Father Family Medical History: Coronary Artery Disease (CAD) Additional Family Medical History / Comment(s): Father at 76yrs from heart problems. Mother Family Medical History: No Reported History Additional Family Medical History / Comment(s): Mother at the age of 92 yrs. She had varicose veins Brother(s) Family Medical History: Cancer Additional Family Medical History / Comment(s): LIVER CA. BLOOD CLOT. Medications and Allergies Home Medications Medication Instructions Recorded Confirmed Type Aspirin 81 mg PO HS 11/14/14 12/17/16 History Multivitamins, Thera [Multivitamin 1 tab PO HS 10/06/16 12/17/16 History (formulary)] Acetaminophen Tab [Tylenol Tab] 650 mg PO Q4H PRN 12/17/16 12/17/16 History Atorvastatin Calcium [Lipitor] 10 mg PO HS@199912/17/16 12/17/16 History Digoxin [Lanoxin] 125 mcg PO Q48H 12/17/16 12/17/16 History Furosemide [Lasix] 40 mg PO BID 12/17/16 12/17/16 History HYDROcodone/APAP 10-325MG [Snover 1 tab PO Q4HR PRN 12/17/16 12/17/16 History 10-325] Ipratropium-Albuterol Nebulize 3 ml INHALATION RT-Q8H 12/17/16 12/17/16 History [Duoneb 0.5 mg-3 mg/3 ml Soln] LORazepam [Ativan] 0.25 mg PO Q6H PRN 12/17/16 12/17/16 History Levothyroxine Sodium [Synthroid] 175 mcg PO DAILY@05012/17/16 12/17/16 History Melatonin 3 mg PO HS@199912/17/16 12/17/16 History Metoprolol Tartrate [Lopressor] 25 mg PO TID@0700,1300,1900 12/17/16 12/17/16 History Minerin Lotion(Emollient) 1 applic TOPICAL BID@499,199912/17/16 12/17/16 History Sennosides [Senna] 8.6 mg PO BID PRN 12/17/16 12/17/16 History Sulfamethox-Tmp 800-160Mg [Bactrim 1 tab PO BID 12/17/16 12/17/16 History DS 800-160 mg] Warfarin [Coumadin] 1 mg PO HS 12/17/16 12/17/16 History Warfarin [Coumadin] 2.5 mg PO HS 12/17/16 12/17/16 History Allergies Allergy/AdvReac Type Severity Reaction Status Date / Time No Known Allergies Allergy Verified 12/17/16 22:18 Physical Exam Vitals: Vital Signs Temp Pulse Pulse Resp BP BP Pulse Ox 12/30/16 20:00 97.9 F 94 17 100/53 90 L 12/30/16 19:58 83 12/30/16 19:44 83 12/30/16 16:00 90 16 90/50 95 12/30/16 13:33 92 12/30/16 12:00 91 16 95/56 93 L 12/30/16 09:56 90 12/30/16 09:43 88 99 12/30/16 08:00 83 16 81/50 96 12/30/16 06:26 88/48 96/59 12/30/16 02:35 97.0 F L 90 18 87/59 93 L 12/29/16 23:16 97.2 F L 89 17 97/63 90 L Intake and Output 12/30/16 12/30/16 12/30/16 06:59 14:59 22:59 Intake Total 337.25 600 30 Output Total 4200 875 1999 Balance -3862.75 -275 -1970 Intake: IV 90 30 Furosemide 250 mg In 90 30 Sodium Chloride 0.9% 225 ml @ 15 MG/HR 15 mls/hr IVP .[id number] [facility] Rx#: [id number] Intake, IV Titration 247.25 Amount Furosemide 250 mg In 247.25 Sodium Chloride 0.9% 225 ml @ 15 MG/HR 15 mls/hr IVP .[id number] [facility] Rx#: [id number] Oral 600 0 Output: Urine 4200 875 2000 Other: Voiding Method Urinal Urinal Urinal # Voids 3 2 2 # Bowel Movements 0 1 Weight 100.8 kg - Constitutional General appearance: no acute distress - EENT Eyes: EOMI, PERRLA ENT: hearing grossly normal, normal oropharynx - Neck Neck: no lymphadenopathy Thyroid: bilateral: normal size - Respiratory Respiratory: bilateral: diminished, rales - Cardiovascular Rhythm: irregularly irregular Heart sounds: normal: S1, S2 Abnormal Heart Sounds: systolic murmur, click - Gastrointestinal General gastrointestinal: normal bowel sounds, soft - Integumentary Integumentary: normal - Neurologic Neurologic: CNII-XII intact - Musculoskeletal Musculoskeletal: generalized weakness, strength equal bilaterally - Psychiatric Psychiatric: A&O x's 3, appropriate affect Postsurgical changes, mid chest area Results CBC & Chem 7: 12/30/16 05:27 12/30/16 05:27 Labs: Abnormal Lab Results - Last 24 Hours (Table) 12/30/16 12/30/16 12/30/16 Range/Units 05:27 05:27 05:27 WBC 10.9 H (3.8-10.6) k/uL RBC 3.80 L (4.30-5.90) m/uL Hgb 9.2 L (13.0-17.5) gm/dL Hct 29.8 L (39.0-53.0) % MCV 78.4 L (80.0-100.0) fL MCH 24.2 L (25.0-35.0) pg MCHC 30.9 L (31.0-37.0) g/dL RDW 18.9 H (11.5-15.5) % PT 22.8 H (9.0-12.0) sec APTT 32.3 H (22.0-30.0) sec Sodium 135 L (137-145) mmol/L Chloride 83 L (98-107) mmol/L Carbon Dioxide 42 H* (22-30) mmol/L BUN 37 H (9-20) mg/dL Creatinine 1.40 H (0.66-1.25) mg/dL Glucose 103 H (74-99) mg/dL Calcium 7.5 L (8.4-10.2) mg/dL Iron 30 L (49-181) ug/dL % Saturation 10.5 L (20-50) % Albumin (3.5-5.0) g/dL 12/30/16 Range/Units 05:27 WBC (3.8-10.6) k/uL RBC (4.30-5.90) m/uL Hgb (13.0-17.5) gm/dL Hct (39.0-53.0) % MCV (80.0-100.0) fL MCH (25.0-35.0) pg MCHC (31.0-37.0) g/dL RDW (11.5-15.5) % PT (9.0-12.0) sec APTT (22.0-30.0) sec Sodium (137-145) mmol/L Chloride (98-107) mmol/L Carbon Dioxide (22-30) mmol/L BUN (9-20) mg/dL Creatinine (0.66-1.25) mg/dL Glucose (74-99) mg/dL Calcium (8.4-10.2) mg/dL Iron (49-181) ug/dL % Saturation (20-50) % Albumin 2.7 L (3.5-5.0) g/dL Chest x-ray: report reviewed CT scan - chest: report reviewed Venous US: report reviewed Assessment and Plan (1) Anemia Narrative/Plan: The patient's anemia occurred, after his surgery and has persisted since then. Hemoglobin has been fairly stable since then. Even this admission, when the patient received transfusion, the hemoglobin did not really drop much compared to his usual baseline . The patient has continued on Coumadin with mostly therapeutic INRs. The concern, presumably, in this case is the need for continuing anticoagulation, in the setting of anemia. However, at this time, there is no definite evidence that his anemia is due to blood loss. The patient has multiple reasons for anemia, including recurrent illnesses, renal insufficiency, persistent inflammation, and use of antibiotics. Iron saturation was low, but so was TIBC, which can occur with anemia of inflammation. Therefore, I will check iron studies including ferritin, as well as check other anemia workup. If evidence of iron deficiency is not found, there would be no contraindication,. to continuing the patient on anticoagulation, with of course, continued monitoring. If iron deficiency is proven, the patient will need a GI workup. If that is negative, he potentially could still continue anticoagulation with the close monitoring and iron supplementation. Status: Acute Plan: Defer to the admitting service and multiple other consultants for management of his other medical problems
[2016-12-31 06:03] LABS: Anisocytosis Slight; CH 23.7; CHCM 30.3; HCT 29.2 % (39.0-53.0); HDW 3.63; HGB 8.9 gm/dL (13.0-17.5); Hypochromasia Marked; MCH 23.8 pg (25.0-35.0); MCHC 30.6 g/dL (31.0-37.0); MCV 77.8 fL (80.0-100.0); Mean Platelet Volume 7.1; Microcytosis Slight; Poikilocytosis Slight; RBC 3.75 m/uL (4.30-5.90); WBC 11.5 k/uL (3.8-10.6)
[2016-12-31 06:06] LABS: INR 2.1 (<1.1); Prothrombin Time 20.1 sec (9.0-12.0)
[2016-12-31 06:09] LABS: Reticulocyte % 3.5 % (0.5-2.0)
[2016-12-31] MEDS: MINERAL OIL-WHITE PETROLATUM 120 GM JAR TOPICAL SCH ×2 (06:16→20:56)
[2016-12-31] MEDS: LEVOTHYROXINE 75 MCG TAB PO SCH (06:16)
[2016-12-31] MEDS: LEVOTHYROXINE 100 MCG TAB PO SCH (06:16)
[2016-12-31] MEDS: METOPROLOL TARTRATE 25 MG TAB PO SCH ×2 (06:17→20:56)
[2016-12-31] MEDS: CALCIUM CARB-VIT D 500MG-200UN 1 EACH TAB PO SCH ×2 (06:17→17:35)
[2016-12-31] MEDS: PANTOPRAZOLE 40 MG TABLET PO SCH (06:18)
[2016-12-31] MEDS: SPIRONOLACTONE 25 MG TAB PO SCH (07:45)
[2016-12-31] MEDS: DIGOXIN 125 MCG TAB PO SCH (07:46)
[2016-12-31] MEDS: AMIODARONE 200 MG TAB PO SCH (07:46)
[2016-12-31] MEDS: METOLAZONE 2.5 MG TAB PO SCH (07:46)
[2016-12-31] MEDS: acetaZOLAMIDE 250 MG TAB PO SCH ×2 (07:47→20:56)
[2016-12-31] MEDS: FUROSEMIDE 10 MG/ML 4 ML VIAL IV SCH (07:47)
[2016-12-31] MEDS: IPRATROPIUM-ALBUTEROL 3 ML NEB INHALATION SCH (07:54)
[2016-12-31 08:32] LABS: Carbon Dioxide 42 mmol/L (22-30)
--- NOTE | 2016-12-31 10:49 | P.PN ---
Subjective Principal diagnosis: Acute exacerbation of chronic congestive heart failure This is a very pleasant 71-year-old gentleman with a history of pulmonary hypertension, paroxysmal atrial fibrillation anticoagulated with warfarin, ruptured chordae tendon he was severe mitral regurgitation and aortic valve disease. 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 The patient had subsequently been discharged from that hospitalization and returned with increasing shortness of breath and significant congestive heart failure. He also had a sternal wound dehiscence that Dr. Riggs had repaired with a sternal exploration and debridement and wound closure with bilateral pectoralis muscle flaps. From that hospitalization he was transferred to [facility] inpatient rehabilitation with Dr. Christina. While there he again developed recurrent pleural effusion and congestive heart failure requiring repeated thoracentesis as well. MEGHAN drain fluid was positive for NM fail as influenza and Serratia marcescens. He was transferred back here 11/13/2016 for continuation of care. Again subsequently discharged to [facility] and was doing fairly well. He really presented here to the emergency room yesterday with complaints of increasing shortness of breath. His chest x-ray showed unchanged cardiomegaly with central pulmonary vascular congestion and a stable right basilar opacity a moderate sized right pleural effusion. There is decreased left pleural effusion compared to previous x-ray 11/23/2016. A CT angiogram revealed an acute pulmonary emboli in the left lower lobe subsegmental pulmonary arteries. There is posterior right upper lobe segmental pulmonary embolus, possibly chronic. There is slight flattening of the intraventricular septum that may represent right heart strain. Again noted moderate right and small left pleural effusions with adjacent opacities suspicious for pneumonia. He did have significant lower extremity edema with cellulitis however venous Dopplers revealed no DVTs. The patient is seen today in consultation on the selective care unit. He is currently awake and alert in no acute distress. He is resting fairly comfortably in bed. He is maintaining O2 saturations in the 90s on 3 L/m per nasal cannula. No leukocytosis, hemoglobin 8.3, INR 1.7, proBNP 4950. Initial lactic 2.5, currently 1.2. He denies any worsening shortness of breath, he is doing better today as compared to yesterday but still dyspneic on minimal exertion. He denies any productive cough or congestion. Patient was reevaluated today on 12/27/2016, continues to do relatively well, patient is on diuretics for his congestive heart failure, his also on anticoagulation therapy for his DVT and pulmonary embolism. Doing well, shortness of breath is significantly improved. No chest pain, no fever, no chills, patient is being followed by many consultants including infectious disease for his cellulitis of the left lower extremity. WBC count is 9.3 hemoglobin is 8.0 electrolytes are relatively normal. Bicarb is 37 BUN is 27 creatinine is 1.0. Last chest x-ray was few days ago, and it did show evidence of congestive heart failure and small right pleural effusion. Clinically however the patient is improving, more diuretics were added by cardiology on the case. Reevaluated today on 12/28/2016, patient continues to do relatively well in spite of his multiple medical issues. Less shortness of breath, ambulating with the use of a walker in the hallway. INR is 3.7 electrolytes were reviewed renal profile is relatively unremarkable. Last chest x-ray from yesterday continues to show some congestive heart failure. The patient was seen again today 12/29/2016 in follow-up on the selective care unit. He is currently sitting up in the chair at the bedside. He is awake and alert in no acute distress. He states he is feeling better today as compared to yesterday. He has received 1 unit of packed red blood cells. Stool for occult blood was negative. He has been hemodynamically stable. He is maintaining good O2 saturations in the upper 90s on room air. He is afebrile. His most recent chest x-ray did reveal improvement of his congestive heart failure. He remains on a Lasix drip at 15 mg per hour. He remains anticoagulated with warfarin. The patient is seen again today 12/30/2016 in follow-up on the selective care unit. He is awake and alert in no acute distress. His chest x-ray today continues to show evidence of congestive heart failure. He remains on a Lasix drip. He remains in a greater than -3 L balance. He is in no acute respiratory distress. He is still not quite back to his baseline however. He does still require 4 L/m per nasal cannula to maintain O2 saturations in the low 90s. He' s been afebrile. Blood pressure remains borderline low however he denies any dizziness or lightheadedness. Mean arterial pressures remain greater than 60. Hemoglobin stable at 9.2. INR 2.4. Creatinine 1.40. The patient is seen again today 12/31/2016 in follow-up on the selective care unit. He is awake and alert in no acute distress. He is resting quite comfortably in bed. He denies any worsening shortness of breath, cough or congestion. His Lasix drip has been converted 40 mg IV twice a day. His electrolytes are being replaced. He remains in a negative balance. His weight is down. His edema is improved. He is on 4 L of high flow nasal cannula to maintain O2 saturations in the 90s. His blood pressure remains stable with a mean arterial pressure of 67. His hemoglobin remains low but stable at 8.9. Ferritin level normal, he is being followed by hematology now. INR 2.1. Bicarb 42. Creatinine 1.40. He's been initiated on Diamox. Repeat blood cultures show no growth to date. Objective - Vital Signs Vital signs: Vital Signs Temp 97 F L 12/31/16 08:00 Pulse 87 12/31/16 08:00 Resp 18 12/31/16 08:00 BP 91/55 12/31/16 08:00 Pulse Ox 93 L 12/31/16 08:00 Intake & Output 12/30/16 12/31/16 12/31/16 18:59 06:59 18:59 Intake Total 600 30 240 Output Total 1675 2100 Balance -1075 -0 240 Weight 97.1 kg Intake: IV 30 Furosemide 250 mg In 30 Sodium Chloride 0.9% 225 ml @ 15 MG/HR 15 mls/hr IVP .[id number] [facility] Rx#: [id number] Oral 600 240 Output: Urine 1675 2100 Other: Voiding Method Urinal Urinal # Voids 3 1 # Bowel Movements 1 - Exam GENERAL EXAM: Alert, active, comfortable in no apparent distress. HEAD: Normocephalic. EYES: Normal reaction of pupils, equal size. NOSE: Clear with pink turbinates. THROAT: No erythema or exudates. NECK: No masses, positive JVD. CHEST: Soft tissue swelling over previous sternal incision and repair of dehisced sternum. LUNGS: Equal air entry with crackles in the bilateral posterior bases. CVS: S1 and S2 normal with no audible murmurs, regular rhythm. ABDOMEN: No hepatosplenomegaly, normal bowel sounds, no guarding or rigidity. Extremities: There is 1-2+ lower extremity edema. No clubbing, no cyanosis. Peripheral pulses are intact. - Labs CBC & Chem 7: 12/31/16 05:35 12/31/16 05:35 Labs: Abnormal Lab Results - Last 24 Hours (Table) 12/30/16 12/31/16 12/31/16 Range/Units 05:27 05:35 05:35 WBC 11.5 H (3.8-10.6) k/uL RBC 3.75 L (4.30-5.90) m/uL Hgb 8.9 L (13.0-17.5) gm/dL Hct 29.2 L (39.0-53.0) % MCV 77.8 L (80.0-100.0) fL MCH 23.8 L (25.0-35.0) pg MCHC 30.6 L (31.0-37.0) g/dL RDW 19.0 H (11.5-15.5) % Retic Count (0.5-2.0) % PT 20.1 H (9.0-12.0) sec Carbon Dioxide 42 H* (22-30) mmol/L Iron (49-181) ug/dL % Saturation (20-50) % 12/31/16 12/31/16 12/31/16 Range/Units 05:35 05:35 05:35 WBC (3.8-10.6) k/uL RBC (4.30-5.90) m/uL Hgb (13.0-17.5) gm/dL Hct (39.0-53.0) % MCV (80.0-100.0) fL MCH (25.0-35.0) pg MCHC (31.0-37.0) g/dL RDW (11.5-15.5) % Retic Count 3.5 H (0.5-2.0) % PT (9.0-12.0) sec Carbon Dioxide 40 H* (22-30) mmol/L Iron 31 L (49-181) ug/dL % Saturation 11.0 L (20-50) % Assessment and Plan Plan: Impression: #1 Acute hypoxic respiratory failure, multifactorial secondary to acute pulmonary emboli in the left lower lobe subsegmental pulmonary arteries, acute exacerbation of chronic systolic congestive heart failure, bilateral pleural effusions, anemia. #2 Recent aortic valve replacement with bovine valve and mitral valve repair with mediastinal lymph node biopsy. #3 Histoplasmosis. #4 Sternal dehiscence requiring sternal exploration and debridement with wound closure with bilateral pectoralis muscle flaps. #5 Pulmonary hypertension. #6 Paroxysmal atrial fibrillation, anticoagulated with warfarin. #7 Hyperlipidemia. #8 Osteoarthritis. #9 History of thyroid cancer status post surgery/radiation. #10 History of right lower extremity DVT in September 2016. Negative Dopplers on this admission. #11 Anemia of unclear etiology. #12 Overall poor functional performance secondary to the above-mentioned multiple comorbidities and extended inpatient stays and rehabilitation. Plan: The patient was seen and evaluated by Dr. Gaffney. We will continue with his current diuretics. We will attempt to decrease the FiO2 while maintaining O2 saturations greater than 90%. Continue bronchodilators. We will increase his activity as tolerated. We will continue to follow and make further recommendations based on his clinical status.
[2016-12-31] MEDS: FERROUS SULFATE 325 MG TAB PO SCH (11:28)
[2016-12-31] MEDS: LISINOPRIL 2.5 MG TAB PO SCH (11:32)
[2016-12-31] MEDS: IPRATROPIUM-ALBUTEROL 3 ML NEB INHALATION PRN ×2 (11:35→15:26)
[2016-12-31 11:37] VITALS: BMI 30.7
[2016-12-31 12:16] LABS: Calcium 7.7 mg/dL (8.4-10.2); Potassium 4.1 mmol/L (3.5-5.1)
--- NOTE | 2016-12-31 15:25 | P.PN ---
<Karyna Murray - Last Filed: 12/31/16 14:41> Progress Note - Text Presenting complaint: Short of breath Interval history: This is a patient with multiple medical problems who has a history of aortic valve replacement and mitral valve repair. He subsequently had sternal wound dehissence and had to have a pectoralis flap in place. Patient admitted this time with acute congestive heart failure exacerbation and acute pulmonary embolism. Patient has been in sinus rhythm. 12/27/2016: Today the is at the bedside. Patient been tolerating his diet. Not excessive activity edema is present. Patient did talk about [address] yesterday, with a walker. Telemetry showing sinus rhythm. Antibiotics have been discontinued per Dr. Ramos. Continue on Lasix drip I and O show negative fluid balance. December 28/2017: Today the patient is feeling better. Sitting up in a chair. Did tolerate his diet. Legs are Kieran wrapped. Edema still present 12/29/2016: Patient feels better today however anxious to go home, sitting in the chair, tolerating his diet, legs remain Kieran wrapped edema improved but present 12/30/2016: Sitting at the bedside, working with physical therapy, tolerating his diet eating 50-75% of each meal, edema present continues to improve, negative fluid balance, patient very anxious to return to rehab, to get better and go home. 12/31/2016: Sitting at the bedside, working with physical therapy, tolerating his diet 800% of his breakfast today, Kieran wraps off lower extremities, edema down significantly. Continues to have a negative fluid balance, states he feels better yet weaker than when admitted. Explained deconditioning through the course of illness to the patient. Verbalized understanding and was satisfied with information provided. Review of systems: Was done for constitutional, cardiovascular, GI, pulmonary. relevant finding as above Medications reviewed that included DuoNeb Cordarone, Diamox, Aldactone, Lasix 40 mg IV every 12 hours, warfarin and Zaroxolyn 2.5 mg VITAL SIGNS: [Temperature 97.0, pulse 86, respiratory rate 18, blood pressure 91 /55, oxygen saturation 93% on 4 L high flow. GENERAL APPEARANCE: Sitting up at bedside, mildly short of breath at rest . EYES: Pupils equal. Conjunctiva normal. NECK: JVD present. Mass not palpable. RESPIRATORY: Respiratory effort increased. Lungs diminished to bilateral bases CARDIOVASCULAR: First and second sounds normal. edema present continues to be improved from previous day, Kieran wraps removed. ABDOMEN: Soft, distended. Liver and spleen not palpable. No tenderness. No mass palpable. PSYCHIATRY: Alert and oriented x3. Mood and affect slightly anxious Labs:. Hemoglobin 8.9, platelet count 383, sodium 136, potassium 4.1, INR 2.1, BUN 43, creatinine 1.71 Assessment: -Acute on chronic congestive heart failure exacerbation from diastolic dysfunction EF 55-60% from underlying coronary artery disease, improving. 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 Plan: Lasix drip converted to IV push Lasix 40 mg twice daily area, negative fluid balance closely to 14 L since initiation of the Lasix drip. Continued monitoring of kidney function creatinine elevated once again today, we'll consult nephrology. Patient continues running hypotensive may be due to antihypertensives, dosing schedule evaluated, patient's baseline is in the 90s to low 100s systolic. Care was discussed with patient and the , expect patient to be here at least another couple of days through the weekend. EDGER HAND statement: Patient was seen and examined by nurse practitioner Karyna Murray and all elements of the case discussed with attending Dr. Dillon. <Alcon Dillon - Last Filed: 12/31/16 19:07> Progress Note - Text Attending note. Date of service-12/01/2016 This patient was seen and examined by me today. I reviewed the note of my nurse practitioner, Ms. Murray. Discussed with her, additional findings as below Patient admitted with CHF exacerbation. Had been on IV Lasix drip. Has been in close to 15 L of negative fluid balance. Patient's renal function did go off hence patient diuretics were held today. Cardiology did start the patient on gentle hydration On examination: Blood pressure 90 systolic Edema greatly improved Labs BUN 43 creatinine 1.71 Assessment and plan: Acute renal failure, prerenal from aggressive diuresis. Patient diuretics have been held for now. Gentle hydration with saline is being done. Repeat alert lites in the morning. Care was discussed with the patient and
--- NOTE | 2016-12-31 15:52 | P.PN ---
Subjective Principal diagnosis: Pulmonary embolism congestive cardiac failure This is a 71-year-old gentleman with history of prior valve surgery, CABG, sternal dehiscence, atrial flutter with congestive heart failure, admitted to the hospital with pulmonary embolism. Patient also showed evidence of congestive heart failure and Diuresed well on IV Lasix. creatinine today 1.7, up from 1.4. Patient seen and examined earlier this morning was feeling punky, reevaluated this afternoon states he's feeling well. we will hold the Lasix, Aldactone, and Zaroxolyn today and administer IV fluids at 75 an hour for 24 hours. Check lytes BUN and creatinine in the morning tomorrow. We'll also repeat his chest x-ray tomorrow. Objective - Vital Signs Vital signs: Vital Signs Temp 97 F L 12/31/16 08:00 Pulse 80 12/31/16 15:42 Resp 20 12/31/16 15:26 BP 89/52 12/31/16 12:00 Pulse Ox 95 12/31/16 12:00 Intake & Output 12/30/16 12/31/16 12/31/16 18:59 06:59 18:59 Intake Total 600 30 240 Output Total 1675 2100 450 Balance -1075 -3140 -210 Weight 97.1 kg 97.1 kg Intake: IV 30 Furosemide 250 mg In 30 Sodium Chloride 0.9% 225 ml @ 15 MG/HR 15 mls/hr IVP .[id number] COUNTS INCLUDE 234 BEDS AT THE [facility] Rx#: [id number] Oral 600 240 Output: Urine 1675 2100 450 Other: Voiding Method Urinal Urinal # Voids 3 1 # Bowel Movements 1 - Exam PHYSICAL EXAMINATION: HEENT: Head is atraumatic, normocephalic. Pupils equal, round. Neck is supple. There is no elevated jugular venous pressure. HEART EXAMINATION: Heart S1, S2 normal. No murmur or gallop heard. CHEST EXAMINATION: Lungs are clear to auscultation and precussion. No chest wall tenderness is noted on palpation or with deep breathing. ABDOMEN: Soft, nontender. Bowel sounds are heard. No organomegaly noted. EXTREMITIES:[ 2+ peripheral pulses with improvement in peripheral edema and no calf tenderness noted]. NEUROLOGIC [patient is awake, alert and oriented -3.] . - Labs CBC & Chem 7: 12/31/16 05:35 12/31/16 05:35 Labs: Abnormal Lab Results - Last 24 Hours (Table) 12/30/16 12/31/16 12/31/16 Range/Units 05:27 05:35 05:35 WBC 11.5 H (3.8-10.6) k/uL RBC 3.75 L (4.30-5.90) m/uL Hgb 8.9 L (13.0-17.5) gm/dL Hct 29.2 L (39.0-53.0) % MCV 77.8 L (80.0-100.0) fL MCH 23.8 L (25.0-35.0) pg MCHC 30.6 L (31.0-37.0) g/dL RDW 19.0 H (11.5-15.5) % Retic Count (0.5-2.0) % PT 20.1 H (9.0-12.0) sec Sodium (137-145) mmol/L Chloride (98-107) mmol/L Carbon Dioxide 42 H* (22-30) mmol/L BUN (9-20) mg/dL Creatinine (0.66-1.25) mg/dL Glucose (74-99) mg/dL Calcium (8.4-10.2) mg/dL Iron (49-181) ug/dL % Saturation (20-50) % 12/31/16 12/31/16 12/31/16 Range/Units 05:35 05:35 05:35 WBC (3.8-10.6) k/uL RBC (4.30-5.90) m/uL Hgb (13.0-17.5) gm/dL Hct (39.0-53.0) % MCV (80.0-100.0) fL MCH (25.0-35.0) pg MCHC (31.0-37.0) g/dL RDW (11.5-15.5) % Retic Count 3.5 H (0.5-2.0) % PT (9.0-12.0) sec Sodium (137-145) mmol/L Chloride (98-107) mmol/L Carbon Dioxide 40 H* (22-30) mmol/L BUN (9-20) mg/dL Creatinine (0.66-1.25) mg/dL Glucose (74-99) mg/dL Calcium (8.4-10.2) mg/dL Iron 31 L (49-181) ug/dL % Saturation 11.0 L (20-50) % 12/31/16 Range/Units 05:35 WBC (3.8-10.6) k/uL RBC (4.30-5.90) m/uL Hgb (13.0-17.5) gm/dL Hct (39.0-53.0) % MCV (80.0-100.0) fL MCH (25.0-35.0) pg MCHC (31.0-37.0) g/dL RDW (11.5-15.5) % Retic Count (0.5-2.0) % PT (9.0-12.0) sec Sodium 136 L (137-145) mmol/L Chloride 84 L (98-107) mmol/L Carbon Dioxide 39 H (22-30) mmol/L BUN 43 H (9-20) mg/dL Creatinine 1.71 H (0.66-1.25) mg/dL Glucose 105 H (74-99) mg/dL Calcium 7.7 L (8.4-10.2) mg/dL Iron (49-181) ug/dL % Saturation (20-50) % Assessment and Plan (1) Pulmonary embolism Status: Acute (2) Diastolic CHF, acute on chronic Status: Acute (3) S/P AVR Status: Acute (4) Histoplasmosis Status: Acute (5) Sternal wound dehiscence Status: Acute (6) Pulmonary HTN Status: Acute (7) Paroxysmal a-fib Status: Acute (8) Hyperlipemia Status: Acute Plan: From cardiology's perspective, Will hold the Lasix, Aldactone, and Zaroxolyn today. Administer IV fluids at 75 mL an hour for 24 hours. Check lytes BUN and creatinine in the morning. Obtain chest x-ray tomorrow. DNP note has been reviewed, I agree with a documented findings and plan of care. Patient was seen and examined.
[2016-12-31] MEDS: SODIUM CHLORIDE 0.9% 1,000 ML IV SCH (16:03)
--- NOTE | 2016-12-31 16:58 | XR ---
EXAMINATION TYPE: XR chest 2V DATE OF EXAM: 12/31/2016 COMPARISON: Yesterday HISTORY: Short of breath TECHNIQUE: Frontal and lateral views of the chest are obtained. FINDINGS: There is pulmonary vascular congestion. There is blunting of costophrenic angles more on t he right side. Heart is enlarged. There are chest leads. There is valve prosthesis noted. IMPRESSION: Congestive heart failure with pleural effusions. No change compared to yesterday.
[2016-12-31] MEDS: MULTIVITAMINS, THERA 1 EACH TAB PO SCH (20:56)
[2016-12-31] MEDS: ATORVASTATIN 10 MG TAB PO SCH (20:56)
[2016-12-31] MEDS: MELATONIN 3 MG TABLET PO SCH (20:56)
[2016-12-31] MEDS: WARFARIN 2.5 MG TAB PO SCH (20:56)
[2016-12-31] MEDS: ASPIRIN 81 MG CHEW PO SCH (20:56)
[2017-01-01] MEDS: SODIUM CHLORIDE 0.9% 1,000 ML IV SCH ×2 (03:21→11:57)
[2017-01-01] MEDS: LEVOTHYROXINE 100 MCG TAB PO SCH (06:02)
[2017-01-01] MEDS: PANTOPRAZOLE 40 MG TABLET PO SCH (06:03)
[2017-01-01] MEDS: CALCIUM CARB-VIT D 500MG-200UN 1 EACH TAB PO SCH ×2 (06:03→17:17)
[2017-01-01] MEDS: LEVOTHYROXINE 75 MCG TAB PO SCH (06:03)
[2017-01-01] MEDS: MINERAL OIL-WHITE PETROLATUM 120 GM JAR TOPICAL SCH ×3 (06:04→21:44)
[2017-01-01 06:35] LABS: Anisocytosis Slight; CHCM 28.4; HCT 31.1 % (39.0-53.0); HDW 3.48; HGB 9.2 gm/dL (13.0-17.5); Hypochromasia Marked; MCH 23.8 pg (25.0-35.0); MCHC 29.5 g/dL (31.0-37.0); MCV 80.7 fL (80.0-100.0); Mean Platelet Volume 6.7; Microcytosis Slight; Poikilocytosis Slight; RBC 3.85 m/uL (4.30-5.90); RDW 18.8 % (11.5-15.5)
[2017-01-01 06:48] LABS: Calcium 7.5 mg/dL (8.4-10.2)
[2017-01-01 06:53] LABS: INR 2.3 (<1.1); Prothrombin Time 22.2 sec (9.0-12.0)
[2017-01-01] MEDS: SODIUM FERRIC GLUCONAT-SUCROSE 125 MG in SODIUM CHLORIDE 0.9% 100 ML IVPB SCH (09:41)
[2017-01-01] MEDS: acetaZOLAMIDE 250 MG TAB PO SCH ×2 (09:42→21:42)
[2017-01-01] MEDS: AMIODARONE 200 MG TAB PO SCH (09:42)
[2017-01-01] MEDS: METOPROLOL TARTRATE 25 MG TAB PO SCH ×2 (09:42→21:42)
--- NOTE | 2017-01-01 11:01 | P.PN ---
Subjective Principal diagnosis: It hypoxic respiratory failure secondary to pulmonary emboli and congestive heart failure, systolic dysfunction. This is a very pleasant 71-year-old gentleman with a history of pulmonary hypertension, paroxysmal atrial fibrillation anticoagulated with warfarin, ruptured chordae tendon he was severe mitral regurgitation and aortic valve disease. 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 The patient had subsequently been discharged from that hospitalization and returned with increasing shortness of breath and significant congestive heart failure. He also had a sternal wound dehiscence that Dr. Riggs had repaired with a sternal exploration and debridement and wound closure with bilateral pectoralis muscle flaps. From that hospitalization he was transferred to [facility] inpatient rehabilitation with Dr. Christina. While there he again developed recurrent pleural effusion and congestive heart failure requiring repeated thoracentesis as well. MEGHAN drain fluid was positive for [place] fail as influenza and Serratia marcescens. He was transferred back here 11/13/2016 for continuation of care. Again subsequently discharged to [facility] and was doing fairly well. He really presented here to the emergency room yesterday with complaints of increasing shortness of breath. His chest x-ray showed unchanged cardiomegaly with central pulmonary vascular congestion and a stable right basilar opacity a moderate sized right pleural effusion. There is decreased left pleural effusion compared to previous x-ray 11/23/2016. A CT angiogram revealed an acute pulmonary emboli in the left lower lobe subsegmental pulmonary arteries. There is posterior right upper lobe segmental pulmonary embolus, possibly chronic. There is slight flattening of the intraventricular septum that may represent right heart strain. Again noted moderate right and small left pleural effusions with adjacent opacities suspicious for pneumonia. He did have significant lower extremity edema with cellulitis however venous Dopplers revealed no DVTs. The patient is seen today in consultation on the selective care unit. He is currently awake and alert in no acute distress. He is resting fairly comfortably in bed. He is maintaining O2 saturations in the 90s on 3 L/m per nasal cannula. No leukocytosis, hemoglobin 8.3, INR 1.7, proBNP 4950. Initial lactic 2.5, currently 1.2. He denies any worsening shortness of breath, he is doing better today as compared to yesterday but still dyspneic on minimal exertion. He denies any productive cough or congestion. Patient was reevaluated today on 12/27/2016, continues to do relatively well, patient is on diuretics for his congestive heart failure, his also on anticoagulation therapy for his DVT and pulmonary embolism. Doing well, shortness of breath is significantly improved. No chest pain, no fever, no chills, patient is being followed by many consultants including infectious disease for his cellulitis of the left lower extremity. WBC count is 9.3 hemoglobin is 8.0 electrolytes are relatively normal. Bicarb is 37 BUN is 27 creatinine is 1.0. Last chest x-ray was few days ago, and it did show evidence of congestive heart failure and small right pleural effusion. Clinically however the patient is improving, more diuretics were added by cardiology on the case. Reevaluated today on 12/28/2016, patient continues to do relatively well in spite of his multiple medical issues. Less shortness of breath, ambulating with the use of a walker in the hallway. INR is 3.7 electrolytes were reviewed renal profile is relatively unremarkable. Last chest x-ray from yesterday continues to show some congestive heart failure. The patient was seen again today 12/29/2016 in follow-up on the selective care unit. He is currently sitting up in the chair at the bedside. He is awake and alert in no acute distress. He states he is feeling better today as compared to yesterday. He has received 1 unit of packed red blood cells. Stool for occult blood was negative. He has been hemodynamically stable. He is maintaining good O2 saturations in the upper 90s on room air. He is afebrile. His most recent chest x-ray did reveal improvement of his congestive heart failure. He remains on a Lasix drip at 15 mg per hour. He remains anticoagulated with warfarin. The patient is seen again today 12/30/2016 in follow-up on the selective care unit. He is awake and alert in no acute distress. His chest x-ray today continues to show evidence of congestive heart failure. He remains on a Lasix drip. He remains in a greater than -3 L balance. He is in no acute respiratory distress. He is still not quite back to his baseline however. He does still require 4 L/m per nasal cannula to maintain O2 saturations in the low 90s. He' s been afebrile. Blood pressure remains borderline low however he denies any dizziness or lightheadedness. Mean arterial pressures remain greater than 60. Hemoglobin stable at 9.2. INR 2.4. Creatinine 1.40. The patient is seen again today 12/31/2016 in follow-up on the selective care unit. He is awake and alert in no acute distress. He is resting quite comfortably in bed. He denies any worsening shortness of breath, cough or congestion. His Lasix drip has been converted 40 mg IV twice a day. His electrolytes are being replaced. He remains in a negative balance. His weight is down. His edema is improved. He is on 4 L of high flow nasal cannula to maintain O2 saturations in the 90s. His blood pressure remains stable with a mean arterial pressure of 67. His hemoglobin remains low but stable at 8.9. Ferritin level normal, he is being followed by hematology now. INR 2.1. Bicarb 42. Creatinine 1.40. He's been initiated on Diamox. Repeat blood cultures show no growth to date. Reevaluated today on 01/01/2017, patient is feeling better, remains on Lasix IV push, chest x-ray is showing definite improvement, not completely resolved, continues to have some pulmonary edema. Legs are still swollen but improving. Overall the patient is steadily improving. And I believe discharge planning is in progress for early next week. CBC is relatively normal hemoglobin is 9.2 bicarb is 38 BUN is 41 creatinine is 1.52. Objective - Vital Signs Vital signs: Vital Signs Temp 97 F L 01/01/17 08:50 Pulse 76 01/01/17 08:50 Resp 16 01/01/17 08:50 BP 102/60 01/01/17 08:50 Pulse Ox 94 L 01/01/17 08:50 Intake & Output 12/31/16 01/01/17 01/01/17 18:59 06:59 18:59 Intake Total 420 230 Output Total 650 960 Balance -230 -960 230 Weight 97.1 kg 97.1 kg Intake: Oral 420 230 Output: Urine 650 960 Other: Voiding Method Urinal Urinal # Voids 1 - Exam GENERAL EXAM: Morbidly obese. Alert, active, comfortable in no apparent distress. HEAD: Normocephalic. EYES: Normal reaction of pupils, equal size. NOSE: Clear with pink turbinates. THROAT: No erythema or exudates. NECK: No masses, no JVD. CHEST: Excessive soft tissue noted at the sternum from previous sternal dehiscence and repair. LUNGS: Equal air entry with bibasilar crackles, few scattered rhonchi. CVS: S1 and S2 normal with no audible murmurs, regular rhythm. ABDOMEN: No hepatosplenomegaly, normal bowel sounds, no guarding or rigidity. SPINE: No scoliosis or deformity SKIN: Plus bipedal edema noted. Minimal erythema noted in lower extremities. NERVOUS SYSTEM: No focal deficits, tone is normal in all 4 extremities. Extremities: There is 2+ lower extremity edema with redness and warmth. Peripheral pulses are intact. - Labs CBC & Chem 7: 01/01/17 06:05 01/01/17 06:05 Labs: Abnormal Lab Results - Last 24 Hours (Table) 12/31/16 12/31/16 01/01/17 Range/Units 05:35 05:35 06:05 RBC 3.85 L (4.30-5.90) m/uL Hgb 9.2 L (13.0-17.5) gm/dL Hct 31.1 L (39.0-53.0) % MCH 23.8 L (25.0-35.0) pg MCHC 29.5 L (31.0-37.0) g/dL RDW 18.8 H (11.5-15.5) % PT (9.0-12.0) sec Sodium 136 L (137-145) mmol/L Chloride 84 L (98-107) mmol/L Carbon Dioxide 39 H (22-30) mmol/L BUN 43 H (9-20) mg/dL Creatinine 1.71 H (0.66-1.25) mg/dL Glucose 105 H (74-99) mg/dL Calcium 7.7 L (8.4-10.2) mg/dL Free [place] LC, Quant 30.40 H (0.33-1.94) mg/dL Free Lambda LC, Quant 13.60 H (0.57-2.63) mg/dL 01/01/17 01/01/17 Range/Units 06:05 06:05 RBC (4.30-5.90) m/uL Hgb (13.0-17.5) gm/dL Hct (39.0-53.0) % MCH (25.0-35.0) pg MCHC (31.0-37.0) g/dL RDW (11.5-15.5) % PT 22.2 H (9.0-12.0) sec Sodium (137-145) mmol/L Chloride 91 L (98-107) mmol/L Carbon Dioxide 38 H (22-30) mmol/L BUN 41 H (9-20) mg/dL Creatinine 1.52 H (0.66-1.25) mg/dL Glucose 100 H (74-99) mg/dL Calcium 7.5 L (8.4-10.2) mg/dL Free [place] LC, Quant (0.33-1.94) mg/dL Free Lambda LC, Quant (0.57-2.63) mg/dL Assessment and Plan Plan: #1 Acute hypoxic respiratory failure, multifactorial secondary to acute pulmonary emboli in the left lower lobe subsegmental pulmonary arteries, acute exacerbation of chronic systolic congestive heart failure, bilateral pleural effusions, anemia. #2 Recent aortic valve replacement with bovine valve and mitral valve repair with mediastinal lymph node biopsy. #3 Histoplasmosis. #4 Sternal dehiscence requiring sternal exploration and debridement with wound closure with bilateral pectoralis muscle flaps. #5 Pulmonary hypertension. #6 Paroxysmal atrial fibrillation, anticoagulated with warfarin. #7 Hyperlipidemia. #8 Osteoarthritis. #9 History of thyroid cancer status post surgery/radiation. #10 History of right lower extremity DVT in September 2016. Negative Dopplers on this admission. #11 Anemia of unclear etiology. #12 Overall poor functional performance secondary to the above-mentioned multiple comorbidities and extended inpatient stays and rehabilitation. Plan: Continue present treatment plan, continue diuretics, hopefully discharge planning to a rehab facility in the next couple of days. Continue ambulation. Time with Patient: Less than 30
[2017-01-01] MEDS: FERROUS SULFATE 325 MG TAB PO SCH (11:54)
--- NOTE | 2017-01-01 13:44 | P.PN ---
Subjective Principal diagnosis: Pulmonary embolism congestive cardiac failure This is a 71-year-old gentleman with history of prior valve surgery, CABG, sternal dehiscence, atrial flutter with congestive heart failure, admitted to the hospital with pulmonary embolism. Patient also showed evidence of congestive heart failure and Diuresed well on IV Lasix. creatinine today 1.7, up from 1.4. Patient seen and examined earlier this morning was feeling punky, reevaluated this afternoon states he's feeling well. we will hold the Lasix, Aldactone, and Zaroxolyn today and administer IV fluids at 75 an hour for 24 hours. Check lytes BUN and creatinine in the morning tomorrow. We'll also repeat his chest x-ray tomorrow. 01/01/2017 Was seen and examined this morning, feeling much better overall today. Blood pressure 98/60 this morning. Continues to be off of the Lasix. He is down to 1.5, potassium 4.0, INR 2.3. Objective - Vital Signs Vital signs: Vital Signs Temp 97 F L 01/01/17 08:50 Pulse 72 01/01/17 11:30 Resp 16 01/01/17 11:30 BP 90/52 01/01/17 11:30 Pulse Ox 96 01/01/17 11:40 Intake & Output 12/31/16 01/01/17 01/01/17 18:59 06:59 18:59 Intake Total 420 230 Output Total 650 960 400 Balance -230 -960 -170 Weight 97.1 kg 97.1 kg Intake: Oral 420 230 Output: Urine 650 960 400 Other: Voiding Method Urinal Urinal # Voids 1 - Exam PHYSICAL EXAMINATION: HEENT: Head is atraumatic, normocephalic. Pupils equal, round. Neck is supple. There is no elevated jugular venous pressure. HEART EXAMINATION: Heart S1, S2 normal. No murmur or gallop heard. CHEST EXAMINATION: Lungs are clear to auscultation and precussion. No chest wall tenderness is noted on palpation or with deep breathing. ABDOMEN: Soft, nontender. Bowel sounds are heard. No organomegaly noted. EXTREMITIES:[ 2+ peripheral pulses with improvement in peripheral edema and no calf tenderness noted]. NEUROLOGIC [patient is awake, alert and oriented -3.] . - Labs CBC & Chem 7: 01/01/17 06:05 01/01/17 06:05 Labs: Abnormal Lab Results - Last 24 Hours (Table) 12/31/16 01/01/17 01/01/17 Range/Units 05:35 06:05 06:05 RBC 3.85 L (4.30-5.90) m/uL Hgb 9.2 L (13.0-17.5) gm/dL Hct 31.1 L (39.0-53.0) % MCH 23.8 L (25.0-35.0) pg MCHC 29.5 L (31.0-37.0) g/dL RDW 18.8 H (11.5-15.5) % PT 22.2 H (9.0-12.0) sec Chloride (98-107) mmol/L Carbon Dioxide (22-30) mmol/L BUN (9-20) mg/dL Creatinine (0.66-1.25) mg/dL Glucose (74-99) mg/dL Calcium (8.4-10.2) mg/dL Free [place] LC, Quant 30.40 H (0.33-1.94) mg/dL Free Lambda LC, Quant 13.60 H (0.57-2.63) mg/dL 01/01/17 Range/Units 06:05 RBC (4.30-5.90) m/uL Hgb (13.0-17.5) gm/dL Hct (39.0-53.0) % MCH (25.0-35.0) pg MCHC (31.0-37.0) g/dL RDW (11.5-15.5) % PT (9.0-12.0) sec Chloride 91 L (98-107) mmol/L Carbon Dioxide 38 H (22-30) mmol/L BUN 41 H (9-20) mg/dL Creatinine 1.52 H (0.66-1.25) mg/dL Glucose 100 H (74-99) mg/dL Calcium 7.5 L (8.4-10.2) mg/dL Free [place] LC, Quant (0.33-1.94) mg/dL Free Lambda LC, Quant (0.57-2.63) mg/dL Assessment and Plan (1) Pulmonary embolism Status: Acute (2) Diastolic CHF, acute on chronic Status: Acute (3) S/P AVR Status: Acute (4) Histoplasmosis Status: Acute (5) Sternal wound dehiscence Status: Acute (6) Pulmonary HTN Status: Acute (7) Paroxysmal a-fib Status: Acute (8) Hyperlipemia Status: Acute Plan: From cardiology's perspective, we will start the patient on oral Lasix today.. Check lytes BUN and creatinine in the morning. X-ray from today continues to show congestive heart failure with pleural effusions. DNP note has been reviewed, I agree with a documented findings and plan of care. Patient was seen and examined.
--- NOTE | 2017-01-01 13:57 | P.PN ---
<Karyna Murray Dominique - Last Filed: 01/01/17 18:55> Progress Note - Text Date of service: 01/01/2017 Presenting complaint: Short of breath Interval history: This is a patient with multiple medical problems who has a history of aortic valve replacement and mitral valve repair. He subsequently had sternal wound dehissence and had to have a pectoralis flap in place. Patient admitted this time with acute congestive heart failure exacerbation and acute pulmonary embolism. Patient has been in sinus rhythm. 12/27/2016: Today the is at the bedside. Patient been tolerating his diet. Not excessive activity edema is present. Patient did talk about [address] yesterday, with a walker. Telemetry showing sinus rhythm. Antibiotics have been discontinued per Dr. Ramos. Continue on Lasix drip I and O show negative fluid balance. December 28/2017: Today the patient is feeling better. Sitting up in a chair. Did tolerate his diet. Legs are Kieran wrapped. Edema still present 12/29/2016: Patient feels better today however anxious to go home, sitting in the chair, tolerating his diet, legs remain Kieran wrapped edema improved but present 12/30/2016: Sitting at the bedside, working with physical therapy, tolerating his diet eating 50-75% of each meal, edema present continues to improve, negative fluid balance, patient very anxious to return to rehab, to get better and go home. 12/31/2016: Sitting at the bedside, working with physical therapy, tolerating his diet ate 100% of his breakfast today, Kieran wraps off lower extremities, edema down significantly. Continues to have a negative fluid balance, states he feels better yet weaker than when admitted. Explained deconditioning through the course of illness to the patient. Verbalized understanding and was satisfied with information provided. 01/01/2017: Patient lying in bed, appears comfortable, tolerating his diet ate 100% of his breakfast today, moved his bowels yesterday, Kieran wraps currently off lower extremities, edema still significantly down, IV Lasix continues and patient has a negative fluid balance. Ambulatory within the room and in the hallways with assistance. Review of systems: Was done for constitutional, cardiovascular, GI, pulmonary. relevant finding as above Medications reviewed that included DuoNeb Cordarone, Diamox, furosemide 40 mg by mouth twice a day,warfarin PHYSICAL EXAM: VITAL SIGNS: Temperature 97.0, pulse 76, respiratory rate 16, blood pressure 102 /60, oxygen saturation 94% on 4 L nasal cannula. GENERAL APPEARANCE: Sitting up at bedside, mildly short of breath at rest . EYES: Pupils equal. Conjunctiva normal. NECK: JVD present. Mass not palpable. RESPIRATORY: Respiratory effort increased. Lungs diminished to bilateral bases CARDIOVASCULAR: First and second sounds normal. edema present continues to be improved from previous day, Kieran wraps removed. ABDOMEN: Soft, distended. Liver and spleen not palpable. No tenderness. No mass palpable. PSYCHIATRY: Alert and oriented x3. Mood and affect calm and cooperative. Labs: Hemoglobin 9.2, sodium 138, potassium 4.0, BUN 41, creatinine 1.52, Assessment: -Acute on chronic congestive heart failure exacerbation from diastolic dysfunction EF 55-60% from underlying coronary artery disease, improving. 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 Plan: Lasix 40 mg twice daily negative fluid balance about 15 L since initiation of the Lasix drip which has since been stopped. Continued monitoring of kidney function creatinine elevated once again today, diuretic held, gentle hydration added with 0.9% normal saline. Patient continues running hypotensive may be due to antihypertensives, dosing schedule evaluated, patient's baseline is in the 90s to low 100s systolic. Care was discussed with patient , expect patient to be here at least another couple of days through the weekend. DELIVERY OF [employer] NEWS statement: Patient was seen and examined by nurse practitioner Karyna Murray and all elements of the case discussed with attending Dr. Dillon. <Alcon Dillon - Last Filed: 01/02/17 15:20> Progress Note - Text Attending note. Date of service-01/01/2017 This patient was seen and examined by me today. I reviewed the note of my nurse practitioner, Ms. Murray. Discussed with her, additional findings as below This patient was admitted with CHF exacerbation was on Lasix drip, now it acute renal failure from diuresis. Diuretics have been held and she is getting gently hydrated with normal saline. Breathing is stable On examination: Edema, decreased. Lungs decreased breath sounds, some wheezing Investigations: Hemoglobin 9.2 Assessment and plan: Acute on chronic congestive heart failure currently compensated. Acute renal failure from diuresis, gentle hydration is with normal saline at 75 mL an hour. Follow closely
[2017-01-01] MEDS: IPRATROPIUM-ALBUTEROL 3 ML NEB INHALATION PRN ×2 (15:53→20:51)
[2017-01-01] MEDS: FUROSEMIDE 40 MG TAB PO SCH (17:17)
[2017-01-01] MEDS: MULTIVITAMINS, THERA 1 EACH TAB PO SCH (21:42)
[2017-01-01] MEDS: ASPIRIN 81 MG CHEW PO SCH (21:42)
[2017-01-01] MEDS: ATORVASTATIN 10 MG TAB PO SCH (21:42)
[2017-01-01] MEDS: MELATONIN 3 MG TABLET PO SCH (21:42)
[2017-01-01] MEDS: WARFARIN 2.5 MG TAB PO SCH (21:42)
[2017-01-02 06:08] LABS: Anisocytosis Slight; Basophils # (A) 0.1 k/uL (0-0.2); Basophils % (A) 1 %; CH 23.7; CHCM 29.1; Eosinophils # (A) 0.2 k/uL (0-0.7); Eosinophils % (A) 2 %; HCT 29.6 % (39.0-53.0); HDW 3.41; HGB 8.6 gm/dL (13.0-17.5); Hypochromasia Marked; Luc # (Auto) 0.17; Luc % (Auto) 2; Lymphocytes # (A) 0.8 k/uL (1.0-4.8); Lymphocytes % (A) 9 %; MCH 23.6 pg (25.0-35.0); MCHC 29.2 g/dL (31.0-37.0); MCV 80.8 fL (80.0-100.0); Microcytosis Slight; Monocytes # (A) 0.4 k/uL (0-1.0); Monocytes % (A) 5 %; Neutrophils # (A) 7.3 k/uL (1.3-7.7); Neutrophils % (A) 82 %; Poikilocytosis Slight; RBC 3.66 m/uL (4.30-5.90); RDW 19.1 % (11.5-15.5); WBC 8.9 k/uL (3.8-10.6); WBC (Perox) 9.14
[2017-01-02] MEDS: MINERAL OIL-WHITE PETROLATUM 120 GM JAR TOPICAL SCH ×2 (06:20→21:55)
[2017-01-02] MEDS: SODIUM CHLORIDE 0.9% 1,000 ML IV SCH ×2 (06:22→09:44)
[2017-01-02] MEDS: PANTOPRAZOLE 40 MG TABLET PO SCH (06:23)
[2017-01-02] MEDS: LEVOTHYROXINE 75 MCG TAB PO SCH (06:23)
[2017-01-02] MEDS: LEVOTHYROXINE 100 MCG TAB PO SCH (06:23)
[2017-01-02] MEDS: CALCIUM CARB-VIT D 500MG-200UN 1 EACH TAB PO SCH ×2 (06:23→16:46)
[2017-01-02 06:28] LABS: Calcium 7.6 mg/dL (8.4-10.2); Potassium 3.7 mmol/L (3.5-5.1)
[2017-01-02] MEDS: IPRATROPIUM-ALBUTEROL 3 ML NEB INHALATION PRN ×4 (06:39→20:08)
[2017-01-02] MEDS: acetaZOLAMIDE 250 MG TAB PO SCH ×2 (08:44→21:55)
[2017-01-02] MEDS: FUROSEMIDE 40 MG TAB PO SCH ×2 (08:45→16:44)
[2017-01-02] MEDS: METOPROLOL TARTRATE 25 MG TAB PO SCH ×2 (08:45→21:56)
[2017-01-02] MEDS: AMIODARONE 200 MG TAB PO SCH (08:45)
[2017-01-02] MEDS: DIGOXIN 125 MCG TAB PO SCH (08:45)
[2017-01-02 09:38] LABS: INR 2.7 (<1.1); Prothrombin Time 26.1 sec (9.0-12.0)
--- NOTE | 2017-01-02 09:39 | P.PN ---
Subjective Principal diagnosis: It hypoxic respiratory failure secondary to pulmonary emboli and congestive heart failure, systolic dysfunction. This is a very pleasant 71-year-old gentleman with a history of pulmonary hypertension, paroxysmal atrial fibrillation anticoagulated with warfarin, ruptured chordae tendon he was severe mitral regurgitation and aortic valve disease. 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 The patient had subsequently been discharged from that hospitalization and returned with increasing shortness of breath and significant congestive heart failure. He also had a sternal wound dehiscence that Dr. Riggs had repaired with a sternal exploration and debridement and wound closure with bilateral pectoralis muscle flaps. From that hospitalization he was transferred to [facility] inpatient rehabilitation with Dr. Christina. While there he again developed recurrent pleural effusion and congestive heart failure requiring repeated thoracentesis as well. MEGHAN drain fluid was positive for SD fail as influenza and Serratia marcescens. He was transferred back here 11/13/2016 for continuation of care. Again subsequently discharged to [facility] and was doing fairly well. He really presented here to the emergency room yesterday with complaints of increasing shortness of breath. His chest x-ray showed unchanged cardiomegaly with central pulmonary vascular congestion and a stable right basilar opacity a moderate sized right pleural effusion. There is decreased left pleural effusion compared to previous x-ray 11/23/2016. A CT angiogram revealed an acute pulmonary emboli in the left lower lobe subsegmental pulmonary arteries. There is posterior right upper lobe segmental pulmonary embolus, possibly chronic. There is slight flattening of the intraventricular septum that may represent right heart strain. Again noted moderate right and small left pleural effusions with adjacent opacities suspicious for pneumonia. He did have significant lower extremity edema with cellulitis however venous Dopplers revealed no DVTs. The patient is seen today in consultation on the selective care unit. He is currently awake and alert in no acute distress. He is resting fairly comfortably in bed. He is maintaining O2 saturations in the 90s on 3 L/m per nasal cannula. No leukocytosis, hemoglobin 8.3, INR 1.7, proBNP 4950. Initial lactic 2.5, currently 1.2. He denies any worsening shortness of breath, he is doing better today as compared to yesterday but still dyspneic on minimal exertion. He denies any productive cough or congestion. Patient was reevaluated today on 12/27/2016, continues to do relatively well, patient is on diuretics for his congestive heart failure, his also on anticoagulation therapy for his DVT and pulmonary embolism. Doing well, shortness of breath is significantly improved. No chest pain, no fever, no chills, patient is being followed by many consultants including infectious disease for his cellulitis of the left lower extremity. WBC count is 9.3 hemoglobin is 8.0 electrolytes are relatively normal. Bicarb is 37 BUN is 27 creatinine is 1.0. Last chest x-ray was few days ago, and it did show evidence of congestive heart failure and small right pleural effusion. Clinically however the patient is improving, more diuretics were added by cardiology on the case. Reevaluated today on 12/28/2016, patient continues to do relatively well in spite of his multiple medical issues. Less shortness of breath, ambulating with the use of a walker in the hallway. INR is 3.7 electrolytes were reviewed renal profile is relatively unremarkable. Last chest x-ray from yesterday continues to show some congestive heart failure. The patient was seen again today 12/29/2016 in follow-up on the selective care unit. He is currently sitting up in the chair at the bedside. He is awake and alert in no acute distress. He states he is feeling better today as compared to yesterday. He has received 1 unit of packed red blood cells. Stool for occult blood was negative. He has been hemodynamically stable. He is maintaining good O2 saturations in the upper 90s on room air. He is afebrile. His most recent chest x-ray did reveal improvement of his congestive heart failure. He remains on a Lasix drip at 15 mg per hour. He remains anticoagulated with warfarin. The patient is seen again today 12/30/2016 in follow-up on the selective care unit. He is awake and alert in no acute distress. His chest x-ray today continues to show evidence of congestive heart failure. He remains on a Lasix drip. He remains in a greater than -3 L balance. He is in no acute respiratory distress. He is still not quite back to his baseline however. He does still require 4 L/m per nasal cannula to maintain O2 saturations in the low 90s. He' s been afebrile. Blood pressure remains borderline low however he denies any dizziness or lightheadedness. Mean arterial pressures remain greater than 60. Hemoglobin stable at 9.2. INR 2.4. Creatinine 1.40. The patient is seen again today 12/31/2016 in follow-up on the selective care unit. He is awake and alert in no acute distress. He is resting quite comfortably in bed. He denies any worsening shortness of breath, cough or congestion. His Lasix drip has been converted 40 mg IV twice a day. His electrolytes are being replaced. He remains in a negative balance. His weight is down. His edema is improved. He is on 4 L of high flow nasal cannula to maintain O2 saturations in the 90s. His blood pressure remains stable with a mean arterial pressure of 67. His hemoglobin remains low but stable at 8.9. Ferritin level normal, he is being followed by hematology now. INR 2.1. Bicarb 42. Creatinine 1.40. He's been initiated on Diamox. Repeat blood cultures show no growth to date. Reevaluated today on 01/01/2017, patient is feeling better, remains on Lasix IV push, chest x-ray is showing definite improvement, not completely resolved, continues to have some pulmonary edema. Legs are still swollen but improving. Overall the patient is steadily improving. And I believe discharge planning is in progress for early next week. CBC is relatively normal hemoglobin is 9.2 bicarb is 38 BUN is 41 creatinine is 1.52. Reevaluated today on 01/02/2017, patient continues to steadily improve, feeling better overall. Breathing a lot easier, swelling of the legs is significantly improved. CBC is relatively unremarkable except for hemoglobin of 8.6, electrolytes are normal BUN is improved down to 37 creatinine is down to 1.47. Objective - Vital Signs Vital signs: Vital Signs Temp 97.4 F L 01/02/17 08:32 Pulse 82 01/02/17 08:32 Resp 16 01/02/17 08:32 BP 102/56 01/02/17 08:32 Pulse Ox 95 01/02/17 08:32 Intake & Output 01/01/17 01/02/17 01/02/17 18:59 06:59 18:59 Intake Total 230 900 Output Total 400 600 Balance -170 300 Weight 96.7 kg Intake: IV 900 0.9 900 Oral 230 Output: Urine 400 600 Other: Voiding Method Urinal Urinal Urinal # Voids 1 - Exam GENERAL EXAM: Morbidly obese. Alert, active, comfortable in no apparent distress. HEAD: Normocephalic. EYES: Normal reaction of pupils, equal size. NOSE: Clear with pink turbinates. THROAT: No erythema or exudates. NECK: No masses, no JVD. CHEST: Excessive soft tissue noted at the sternum from previous sternal dehiscence and repair. LUNGS: Equal air entry with bibasilar crackles, few scattered rhonchi. CVS: S1 and S2 normal with no audible murmurs, regular rhythm. ABDOMEN: No hepatosplenomegaly, normal bowel sounds, no guarding or rigidity. SPINE: No scoliosis or deformity SKIN: Plus bipedal edema noted. Minimal erythema noted in lower extremities. NERVOUS SYSTEM: No focal deficits, tone is normal in all 4 extremities. Extremities: There is trace of bipedal edema - Labs CBC & Chem 7: 01/02/17 05:30 01/02/17 05:30 Labs: Abnormal Lab Results - Last 24 Hours (Table) 01/02/17 01/02/17 Range/Units 05:30 05:30 RBC 3.66 L (4.30-5.90) m/uL Hgb 8.6 L (13.0-17.5) gm/dL Hct 29.6 L (39.0-53.0) % MCH 23.6 L (25.0-35.0) pg MCHC 29.2 L (31.0-37.0) g/dL RDW 19.1 H (11.5-15.5) % Lymphocytes # 0.8 L (1.0-4.8) k/uL Chloride 97 L (98-107) mmol/L Carbon Dioxide 31 H (22-30) mmol/L BUN 37 H (9-20) mg/dL Creatinine 1.47 H (0.66-1.25) mg/dL Calcium 7.6 L (8.4-10.2) mg/dL Assessment and Plan Plan: #1 Acute hypoxic respiratory failure, multifactorial secondary to acute pulmonary emboli in the left lower lobe subsegmental pulmonary arteries, acute exacerbation of chronic systolic congestive heart failure, bilateral pleural effusions, anemia. #2 Recent aortic valve replacement with bovine valve and mitral valve repair with mediastinal lymph node biopsy. #3 history of Histoplasmosis. #4 Sternal dehiscence requiring sternal exploration and debridement with wound closure with bilateral pectoralis muscle flaps. #5 Pulmonary hypertension. #6 Paroxysmal atrial fibrillation, anticoagulated with warfarin. #7 Hyperlipidemia. #8 Osteoarthritis. #9 History of thyroid cancer status post surgery/radiation. #10 History of right lower extremity DVT in September 2016. Negative Dopplers on this admission. #11 Anemia of unclear etiology. #12 Overall poor functional performance secondary to the above-mentioned multiple comorbidities and extended inpatient stays and rehabilitation. Plan: Continue present treatment plan, continue diuretics, hopefully discharge planning to a rehab facility in the next 24 hours. Time with Patient: Less than 30
[2017-01-02] MEDS: SODIUM FERRIC GLUCONAT-SUCROSE 125 MG in SODIUM CHLORIDE 0.9% 100 ML IVPB SCH (09:42)
[2017-01-02] MEDS ORDERED: POTASSIUM CHLORIDE ER 20 MEQ TAB.ER PO STA (10:39)
[2017-01-02] MEDS: FERROUS SULFATE 325 MG TAB PO SCH (11:52)
--- NOTE | 2017-01-02 15:19 | P.PN ---
<Karyna Murray Dominique - Last Filed: 01/02/17 15:23> Progress Note - Text Date of service: 01/02/2017 Presenting complaint: Short of breath Interval history: This is a patient with multiple medical problems who has a history of aortic valve replacement and mitral valve repair. He subsequently had sternal wound dehissence and had to have a pectoralis flap in place. Patient admitted this time with acute congestive heart failure exacerbation and acute pulmonary embolism. Patient has been in sinus rhythm. 12/27/2016: Today the is at the bedside. Patient been tolerating his diet. Not excessive activity edema is present. Patient did talk about [address] yesterday, with a walker. Telemetry showing sinus rhythm. Antibiotics have been discontinued per Dr. Ramos. Continue on Lasix drip I and O show negative fluid balance. December 28/2017: Today the patient is feeling better. Sitting up in a chair. Did tolerate his diet. Legs are Kieran wrapped. Edema still present 12/29/2016: Patient feels better today however anxious to go home, sitting in the chair, tolerating his diet, legs remain Kieran wrapped edema improved but present 12/30/2016: Sitting at the bedside, working with physical therapy, tolerating his diet eating 50-75% of each meal, edema present continues to improve, negative fluid balance, patient very anxious to return to rehab, to get better and go home. 12/31/2016: Sitting at the bedside, working with physical therapy, tolerating his diet ate 100% of his breakfast today, Kieran wraps off lower extremities, edema down significantly. Continues to have a negative fluid balance, states he feels better yet weaker than when admitted. Explained deconditioning through the course of illness to the patient. Verbalized understanding and was satisfied with information provided. 01/01/2017: Patient lying in bed, appears comfortable, tolerating his diet ate 100% of his breakfast today, moved his bowels yesterday, Kieran wraps currently off lower extremities, edema still significantly down, IV fluids continue and patient has a negative fluid balance. Ambulatory within the room and in the hallways with assistance. 01/02/2017: Lying in bed appears comfortable. Tolerating his diet 100% of his breakfast. Moved his bowels yesterday. Kieran wraps currently off lower extremities, mild edema noted IV fluids continue, continues to have a negative fluid balance. By mouth Lasix initiated yesterday by cardiology. Sits up in the chair for most meals, moves about the room without assistance and some assistance in the hallway. Review of systems: Was done for constitutional, cardiovascular, GI, pulmonary. relevant finding as above Medications reviewed that included DuoNeb Cordarone, Diamox, furosemide 40 mg by mouth twice a day,warfarin, ferric sodium gluconate, Feosol PHYSICAL EXAM: VITAL SIGNS: Temperature 97.4, pulse 82, respiratory rate 16, blood pressure 102 /56, oxygen saturation 95% on 2 L . GENERAL APPEARANCE: Lying in bed, sleeping, appears comfortable . EYES: Pupils equal. Conjunctiva normal. NECK: JVD present. Mass not palpable. RESPIRATORY: Respiratory effort increased. Lungs diminished to bilateral bases CARDIOVASCULAR: First and second sounds normal. edema present continues to be improved from previous day, Kieran wraps removed. ABDOMEN: Soft, distended. Liver and spleen not palpable. No tenderness. No mass palpable. PSYCHIATRY: Alert and oriented x3. Mood and affect calm and cooperative. INVESTIGATIONS: Assessment: -Acute on chronic congestive heart failure exacerbation from diastolic dysfunction EF 55-60% from underlying coronary artery disease, improving. 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 Plan: Lasix by mouth 40 mg twice daily continues to have a negative fluid balance . Continued monitoring of kidney function creatinine elevated but trending down today, gentle hydration continues with 0.9% normal saline. Care was discussed with patient , expect patient to be here at least through the weekend. ETHNIC STUDIES PROFESSOR statement: Patient was seen and examined by nurse practitioner Karyna Murray and all elements of the case discussed with attending Dr. Dillon. <Alcon Dillon - Last Filed: 01/02/17 17:21> Progress Note - Text Attending note. Date of service-01/02/2017 This patient was seen and examined by me today. I reviewed the note of my nurse practitioner, Ms. Murray. Discussed with her, additional findings as below. Patient admitted with acute pulmonary embolism minutes each of exacerbation. Had gone into acute renal failure has diuretics were held and was gently rehydrated. On IV saline 75 mL an hour. Edema is started to increase On examination: Lungs-basal crackles, Investigations: BUNs 37 creatinine 1.47 Assessment and plan: Acute renal failure from diuresis improving. At this point will DC the normal saline. Start the patient on a smaller dose of Aldactone 25 mg a day starting the morning. Lasix will be resumed at 60 mg twice a day. We will hold off patient's Zaroxolyn
[2017-01-02] MEDS: ATORVASTATIN 10 MG TAB PO SCH (21:55)
[2017-01-02] MEDS: ASPIRIN 81 MG CHEW PO SCH (21:55)
[2017-01-02] MEDS: MELATONIN 3 MG TABLET PO SCH (21:55)
[2017-01-02] MEDS: MULTIVITAMINS, THERA 1 EACH TAB PO SCH (21:56)
[2017-01-02] MEDS: WARFARIN 2.5 MG TAB PO SCH (21:56)
[2017-01-03] MEDS: MINERAL OIL-WHITE PETROLATUM 120 GM JAR TOPICAL SCH (06:19)
[2017-01-03] MEDS: LEVOTHYROXINE 75 MCG TAB PO SCH (06:36)
[2017-01-03] MEDS: LEVOTHYROXINE 100 MCG TAB PO SCH (06:36)
[2017-01-03] MEDS: PANTOPRAZOLE 40 MG TABLET PO SCH (06:37)
[2017-01-03] MEDS: CALCIUM CARB-VIT D 500MG-200UN 1 EACH TAB PO SCH (06:37)
[2017-01-03 07:03] LABS: Anisocytosis Slight; Basophils % (A) 1 %; CH 23.7; CHCM 29.3; Eosinophils # (A) 0.3 k/uL (0-0.7); Eosinophils % (A) 3 %; HCT 29.4 % (39.0-53.0); HDW 3.47; HGB 8.6 gm/dL (13.0-17.5); Hypochromasia Marked; Luc # (Auto) 0.17; Luc % (Auto) 2; Lymphocytes # (A) 0.8 k/uL (1.0-4.8); Lymphocytes % (A) 9 %; MCH 23.7 pg (25.0-35.0); MCHC 29.4 g/dL (31.0-37.0); MCV 80.5 fL (80.0-100.0); Mean Platelet Volume 7.3; Microcytosis Slight; Monocytes # (A) 0.4 k/uL (0-1.0); Monocytes % (A) 4 %; Neutrophils # (A) 7.1 k/uL (1.3-7.7); Neutrophils % (A) 81 %; Poikilocytosis Slight; RBC 3.65 m/uL (4.30-5.90); RDW 18.9 % (11.5-15.5); WBC 8.8 k/uL (3.8-10.6); WBC (Perox) 8.75
[2017-01-03 07:17] LABS: INR 2.3 (<1.1); Prothrombin Time 21.9 sec (9.0-12.0)
[2017-01-03 07:21] LABS: Anion Gap 10 mmol/L; Blood Urea Nitrogen 36 mg/dL (9-20); Calcium 7.9 mg/dL (8.4-10.2); Carbon Dioxide 30 mmol/L (22-30); Chloride 98 mmol/L (98-107); Glucose 93 mg/dL (74-99); Non-African American GFR(MDRD) 52 (>60 ml/min/1.73 sqM); Sodium 138 mmol/L (137-145)
[2017-01-03] MEDS: IPRATROPIUM-ALBUTEROL 3 ML NEB INHALATION PRN ×2 (07:43→10:58)
[2017-01-03] MEDS ORDERED: FUROSEMIDE 40 MG TAB PO SCH (09:00)
[2017-01-03] MEDS ORDERED: SPIRONOLACTONE 25 MG TAB PO SCH (09:00)
[2017-01-03] MEDS: AMIODARONE 200 MG TAB PO SCH (09:35)
[2017-01-03] MEDS: acetaZOLAMIDE 250 MG TAB PO SCH (09:36)
[2017-01-03] MEDS: FERROUS SULFATE 325 MG TAB PO SCH (09:36)
[2017-01-03] MEDS: METOPROLOL TARTRATE 25 MG TAB PO SCH (09:37)
[2017-01-03 09:48] VITALS: TEMP 97
[2017-01-03] MEDS: SODIUM FERRIC GLUCONAT-SUCROSE 125 MG in SODIUM CHLORIDE 0.9% 100 ML IVPB SCH (10:16)
[2017-01-03 12:38] VITALS: BP 91/53; PULSE 75; RESP 18
--- NOTE | 2017-01-03 13:08 | P.PN ---
Subjective Principal diagnosis: Pulmonary embolism congestive cardiac failure This is a 71-year-old gentleman with history of prior valve surgery, CABG, sternal dehiscence, atrial flutter with congestive heart failure, admitted to the hospital with pulmonary embolism. Patient also showed evidence of congestive heart failure and Diuresed well on IV Lasix. creatinine today 1.7, up from 1.4. Patient seen and examined earlier this morning was feeling punky, reevaluated this afternoon states he's feeling well. we will hold the Lasix, Aldactone, and Zaroxolyn today and administer IV fluids at 75 an hour for 24 hours. Check lytes BUN and creatinine in the morning tomorrow. We'll also repeat his chest x-ray tomorrow. 01/01/2017 Was seen and examined this morning, feeling much better overall today. Blood pressure 98/60 this morning. Continues to be off of the Lasix. He is down to 1.5, potassium 4.0, INR 2.3. 01/03/2017 Patient seen and examined this morning, doing much better overall. Anticipating discharge today. We will make him a follow-up appointment in the office with Dr. Guadarrama. Check lytes BUN and creatinine in one week. Objective - Vital Signs Vital signs: Vital Signs Temp 97 F L 01/03/17 08:00 Pulse 75 01/03/17 12:00 Resp 18 01/03/17 12:00 BP 91/53 01/03/17 12:00 Pulse Ox 94 L 01/03/17 12:00 Intake & Output 01/02/17 01/03/17 01/03/17 18:59 06:59 18:59 Intake Total 100 236 Output Total 1800 1000 500 Balance -1700 -1000 -264 Weight 96.6 kg Intake: Intake, IV Titration 100 Amount Sodium Ferric Gluconat- 100 Sucrose 125 mg In Sodium Chloride 0.9% 100 ml @ 100 mls/hr IVPB DAILY [facility] Rx#:[id number] Oral 236 Output: Urine 1800 1000 500 Other: Voiding Method Urinal Urinal # Voids 1 - Exam PHYSICAL EXAMINATION: HEENT: Head is atraumatic, normocephalic. Pupils equal, round. Neck is supple. There is no elevated jugular venous pressure. HEART EXAMINATION: Heart S1, S2 normal. No murmur or gallop heard. CHEST EXAMINATION: Lungs are clear to auscultation and precussion. No chest wall tenderness is noted on palpation or with deep breathing. ABDOMEN: Soft, nontender. Bowel sounds are heard. No organomegaly noted. EXTREMITIES:[ 2+ peripheral pulses with improvement in peripheral edema and no calf tenderness noted]. NEUROLOGIC [patient is awake, alert and oriented -3.] . - Labs CBC & Chem 7: 01/03/17 06:18 01/03/17 06:18 Labs: Abnormal Lab Results - Last 24 Hours (Table) 12/31/16 01/03/17 01/03/17 Range/Units 05:35 06:18 06:18 RBC 3.65 L (4.30-5.90) m/uL Hgb 8.6 L (13.0-17.5) gm/dL Hct 29.4 L (39.0-53.0) % MCH 23.7 L (25.0-35.0) pg MCHC 29.4 L (31.0-37.0) g/dL RDW 18.9 H (11.5-15.5) % Lymphocytes # 0.8 L (1.0-4.8) k/uL PT (9.0-12.0) sec BUN 36 H (9-20) mg/dL Creatinine 1.34 H (0.66-1.25) mg/dL Calcium 7.9 L (8.4-10.2) mg/dL RBC Folate 1,050 H (280 - 791) ng/mL 01/03/17 Range/Units 06:18 RBC (4.30-5.90) m/uL Hgb (13.0-17.5) gm/dL Hct (39.0-53.0) % MCH (25.0-35.0) pg MCHC (31.0-37.0) g/dL RDW (11.5-15.5) % Lymphocytes # (1.0-4.8) k/uL PT 21.9 H (9.0-12.0) sec BUN (9-20) mg/dL Creatinine (0.66-1.25) mg/dL Calcium (8.4-10.2) mg/dL RBC Folate (280 - 791) ng/mL Assessment and Plan (1) Pulmonary embolism Status: Acute (2) Diastolic CHF, acute on chronic Status: Acute (3) S/P AVR Status: Acute (4) Histoplasmosis Status: Acute (5) Sternal wound dehiscence Status: Acute (6) Pulmonary HTN Status: Acute (7) Paroxysmal a-fib Status: Acute (8) Hyperlipemia Status: Acute Plan: From cardiology's perspective, patient may be able to be discharged home today. We'll make him a follow-up appointment to see Dr. Guadarrama in the office post discharge. He will also have lytes BUN and creatinine drawn in one week. DNP note has been reviewed, I agree with a documented findings and plan of care. Patient was seen and examined.
--- NOTE | 2017-01-03 14:32 | P.DS ---
Providers Date of admission: 12/18/16 02:40 Expected date of discharge: 01/03/17 Attending physician: Alcon Dillon Consults: 12/18/16 02:44 Consult Physician Routine Consulting Provider: Johnny Ramos Consult Reason/Comments: cellulitis Do you want consulting provider notified?: Yes 12/18/16 02:45 Consult Physician Routine Consulting Provider: Augie Armando Consult Reason/Comments: Pulmonary embolus Do you want consulting provider notified?: Yes 12/25/16 13:14 Consult Physician Routine Consulting Provider: Dayami Guadarrama Consult Reason/Comments: CONPLICATED CARDIAC HISTORY AND EXACERBATION OF CHF Do you want consulting provider notified?: Yes 12/29/16 14:26 Consult Physician Routine Consulting Provider: Samuel Salazar Consult Reason/Comments: low hemoglobin Do you want consulting provider notified?: Yes Primary care physician: [facility] Course: This is a patient with multiple medical problems including congestive heart failure presented with exacerbation of the same and pulmonary embolism. Patient had been put on a Lasix drip and then used a good amount and doing much better now. Edema has come down. Patient had a baseline has some shortness of breath. Patient started tolerating his diet. And is anticoagulated for his pulmonary embolism. Anemia workup was done by Dr. Salazar. Patient is given IV iron. Patient may need endoscopy down the road but because of patient's overall pulmonary cardiac status she will be not be too stable for the same. On examination: Blood pressure 91/53, respiratory rate 18, pulse 75 Lungs-decreased breath sounds prolonged expiration Cardiovascular first seconds are normal, edema present Labs: Hemoglobin 8.6, INR 2.3 BUNs 36, creatinine 1.34 Final diagnoses: -Acute on chronic congestive heart failure exacerbation from diastolic dysfunction EF 55-60% from underlying coronary artery disease, improving. 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 Disposition: [facility] CODE [id number] Plan - Discharge Summary New Discharge Prescriptions: New Amiodarone [Cordarone] 200 mg PO DAILY #7 tab Calcium Carb-Vit D 500Mg-200Un [Oscal 500+D] 1 each PO BID-W/MEALS tab Ferrous Sulfate [Iron (65 MG Elemental)] 325 mg PO W/LUNCH #7 tab Furosemide [Lasix] 60 mg PO BID@0900,1600 #14 tab Ipratropium-Albuterol Nebulize [Duoneb 0.5 mg-3 mg/3 ml Soln] 3 ml INHALATION RT-QID PRN #30 neb PRN Reason: Shortness Of Breath Metoprolol Tartrate [Lopressor] 25 mg PO BID #7 tab Spironolactone [Aldactone] 25 mg PO DAILY #7 tab Aspirin 81 mg PO HS Atorvastatin [Lipitor] 10 mg PO HS@2000 tab Digoxin [Lanoxin] 125 mcg PO Q48H tab Melatonin 3 mg PO HS@2000 tab Continue Warfarin [Coumadin] 2.5 mg PO HS Aspirin 81 mg PO HS #7 Atorvastatin Calcium [Lipitor] 10 mg PO HS@2000 #7 Digoxin [Lanoxin] 125 mcg PO Q48H #7 HYDROcodone/APAP 10-325MG [[place] 10-325] 1 tab PO Q4HR PRN #20 PRN Reason: Moderate Pain Levothyroxine Sodium [Synthroid] 175 mcg PO DAILY@0500 #7 LORazepam [Ativan] 0.25 mg PO Q6H PRN #7 PRN Reason: Anxiety Melatonin 3 mg PO HS@2000 #7 Minerin Lotion(Emollient) 1 applic TOPICAL BID@0500,2000 #1 Multivitamins, Thera [Multivitamin (formulary)] 1 tab PO HS #7 Pantoprazole [Protonix] 40 mg PO AC-BRKFST #7 tablet.[address] Stokes [Senna] 8.6 mg PO BID PRN #14 PRN Reason: Constipation Discontinued Amiodarone [Cordarone] 400 mg PO DAILY #30 tab Acetaminophen Tab [Tylenol Tab] 650 mg PO Q4H PRN PRN Reason: Pain Or Fever > 100.5 Sulfamethox-Tmp 800-160Mg [Bactrim DS 800-160 mg] 1 tab PO BID Warfarin [Coumadin] 1 mg PO HS Metoprolol Tartrate [Lopressor] 25 mg PO TID@0700,1300,1900 Ipratropium-Albuterol Nebulize [Duoneb 0.5 mg-3 mg/3 ml Soln] 3 ml INHALATION RT-Q8H Furosemide [Lasix] 40 mg PO BID Discharge Medication List Warfarin [Coumadin] 2.5 mg PO HS 12/17/16 [History] Amiodarone [Cordarone] 200 mg PO DAILY #7 tab 01/03/17 [Rx] Aspirin 81 mg PO HS 01/03/17 [Rx] Aspirin 81 mg PO HS #7 01/03/17 [Rx] Atorvastatin Calcium [Lipitor] 10 mg PO HS@1999 #7 01/03/17 [Rx] Atorvastatin [Lipitor] 10 mg PO HS@1999 tab 01/03/17 [Rx] Calcium Carb-Vit D 500Mg-200Un [Oscal 500+D] 1 each PO BID-W/MEALS tab [Rx] Digoxin [Lanoxin] 125 mcg PO Q48H tab 01/03/17 [Rx] Digoxin [Lanoxin] 125 mcg PO Q48H #7 01/03/17 [Rx] Ferrous Sulfate [Iron (65 MG Elemental)] 325 mg PO W/LUNCH #7 tab 01/03/17 [Rx] Furosemide [Lasix] 60 mg PO BID@0900,1600 #14 tab 01/03/17 [Rx] HYDROcodone/APAP 10-325MG [[place] 10-325] 1 tab PO Q4HR PRN #20 01/03/17 [Rx] Ipratropium-Albuterol Nebulize [Duoneb 0.5 mg-3 mg/3 ml Soln] 3 ml INHALATION RT -QID PRN #30 neb 01/03/17 [Rx] LORazepam [Ativan] 0.25 mg PO Q6H PRN #7 01/03/17 [Rx] Levothyroxine Sodium [Synthroid] 175 mcg PO DAILY@0500 #7 01/03/17 [Rx] Melatonin 3 mg PO HS@1999 tab 01/03/17 [Rx] Melatonin 3 mg PO HS@2000 #7 01/03/17 [Rx] Metoprolol Tartrate [Lopressor] 25 mg PO BID #7 tab 01/03/17 [Rx] Minerin Lotion(Emollient) 1 applic TOPICAL BID@050 #1 01/03/17 [Rx] Multivitamins, Thera [Multivitamin (formulary)] 1 tab PO HS #7 01/03/17 [Rx] Pantoprazole [Protonix] 40 mg PO AC-YIMIFSPat #7 tablet.dr 01/03/17 [Rx] Sennosides [Senna] 8.6 mg PO BID PRN #14 01/03/17 [Rx] Spironolactone [Aldactone] 25 mg PO DAILY #7 tab 01/03/17 [Rx] Follow up Appointment(s)/Referral(s): Dayami Guadarrama MD [STAFF PHYSICIAN] - 1 Week Burt Tracy MD [Primary Care Provider] - 01/03/17 2:31 pm Samuel Salazar MD [STAFF PHYSICIAN] - 10 Days Ambulatory/Diagnostic Orders: Basic Metabolic Panel [LAB.AMB] Location: Determined By Patient Complete Blood Count w/diff [LAB.AMB] Location: Determined By Patient
--- NOTE | 2017-01-03 16:13 | PN ---
Mr. Stevenson is a 71 year old male with a history of coronary artery bypass grafting, sternal dehiscence, atrial flutter, congestive heart failure, presented with pulmonary embolism. He is feeling better today. His breathing is stable. He is denying any symptoms of chest pain. He denies any symptoms of dizziness. No palpitations. He had an episode of hypotension and his medical regimen was adjusted accordingly. He continues to be at this time on Amiodarone 200 mg daily, aspirin 81 mg daily, Lipitor 10 mg daily, Digoxin 0.125 mg q48 hours, Lasix 40 mg twice a day, Metoprolol tartrate 25 mg twice a day, Coumadin. Physical examination: Blood pressure 102/60 with a heart rate in the 80s. Lungs reveals mild decreased breath sounds at the bases. Heart regular rate and rhythm, S1, S2, no S3, no rub. Abdomen soft and nontender. Extremities trace edema. Lab data revealed INR 2.7, hemoglobin 8.6. BUN and creatinine 37 and 1.47. IMPRESSION: 1. Pulmonary embolism, anticoagulated. 2. Status post coronary artery bypass grafting and with sternal dehiscence, improved. 3. Paroxysmal atrial fibrillation. 4. Prior history of congestive heart failure. 5. Renal failure improving. 6. Status post aortic valve replacement. RECOMMENDATIONS: From the cardiac standpoint, he is doing well. We will continue present therapy. We will follow his renal function, increase his level of activity. If he remains stable, we will continue to adjust his medical regimen depending on his renal function. CHIOD
[2017-01-04 04:18] LABS: Methylmalonic Acid 0.46 umol/L (<0.40)
--- NOTE | 2017-01-04 09:39 | PN ---
This is a 71-year-old gentleman who has been in the hospital for 16 days. He continues to show steady improvement. The patient is feeling stronger. His breathing is much improved. The lower extremity edema is much improved. The patient was seen by my partner yesterday. His creatinine and BUN have come back down to more normal range. Currently, the patient's vital signs are stable. Temperature 97, heart rate 70, respiratory rate 18, blood pressure 103/52, mean 69, 4 L saturation 96%. Appears in no acute distress. HEENT examination is unremarkable. Mucous membranes are moist. No oral lesions. Neck is supple. Full range of motion. No adenopathy or thyromegaly. Cardiovascular examination reveals regular rhythm and rate, S1, S2 normal. Lungs reveal relatively clear breath sounds. A few scattered rhonchi. No wheezes or crackles. Abdomen is soft. Bowel sounds are heard. Extremities are intact. No cyanosis, clubbing or edema. Labs are reviewed. White count 8.8, hemoglobin 8.6, hematocrit 29.4. Platelet count 362,000. These values are pretty unremarkable compared to the previous days' values. PT, INR with 21.9 and 2.3 respectively. Sodium, potassium chloride, CO2 all normal. BUN and creatinine were 36 and 1.34 compared to 37 and 1.47 yesterday. Microbiology is currently negative. Most recent chest x-ray from 12/31 was reviewed. ASSESSMENT: 1. Hypoxemic respiratory failure secondary to acute pulmonary emboli in the left lower lobe. 2. Systolic congestive heart failure. 3. Bilateral pleural effusions. 4. Anemia. 5. Aortic valve replacement with mitral valve repair. 6. History of histoplasmosis and sternal dehiscence requiring a flap repair. 7. Pulmonary hypertension. 8. Paroxysmal atrial fibrillation. 9. Hyperlipidemia. 10. Degenerative joint disease. 11. Thyroid cancer, status post surgery/radiation. 12. History of right lower extremity deep venous thrombosis. 13. Chronic anemia. 14. General medical debility. PLAN: The patient is doing relatively well. Will continue to follow. Possible discharge to rehab in the next few days. No additional recommendations are made. Lab continues to show improvement. MTDD
== END 2017-01-03 16:21 | DRG 291 ==
LOC: EC 21:37 → 6SEL 12-18 02:40
PROVIDERS: ADMIT Hospitalist; ATTEND Hospitalist
DX: I11.0 Hypertensive heart disease with heart failure (principal); I26.99 Other pulmonary embolism without acute cor pulmonale; N17.9 Acute kidney failure, unspecified; E44.0 Moderate protein-calorie malnutrition; E87.3 Alkalosis; J96.01 Acute respiratory failure with hypoxia; B39.9 Histoplasmosis, unspecified; J96.02 Acute respiratory failure with hypercapnia; I82.401 Acute embolism and thrombosis of unspecified deep veins of right lower extremity; I48.0 Paroxysmal atrial fibrillation; L03.115 Cellulitis of right lower limb; L03.116 Cellulitis of left lower limb; I27.2 Other secondary pulmonary hypertension; E83.51 Hypocalcemia; E03.9 Hypothyroidism, unspecified; D50.9 Iron deficiency anemia, unspecified; E78.00 Pure hypercholesterolemia, unspecified; E78.5 Hyperlipidemia, unspecified; I25.10 Atherosclerotic heart disease of native coronary artery without angina pectoris; I50.43 Acute on chronic combined systolic (congestive) and diastolic (congestive) heart failure; J11.1 Influenza due to unidentified influenza virus with other respiratory manifestations; J44.9 Chronic obstructive pulmonary disease, unspecified; K21.9 Gastro-esophageal reflux disease without esophagitis; M15.9 Polyosteoarthritis, unspecified; T50.1X5A Adverse effect of loop [high-ceiling] diuretics, initial encounter; Z79.01 Long term (current) use of anticoagulants; Z79.82 Long term (current) use of aspirin; Z79.899 Other long term (current) drug therapy; Z80.0 Family history of malignant neoplasm of digestive organs; Z82.49 Family history of ischemic heart disease and other diseases of the circulatory system; Z85.850 Personal history of malignant neoplasm of thyroid; Z87.891 Personal history of nicotine dependence; Z92.3 Personal history of irradiation; Z93.1 Gastrostomy status; Z95.1 Presence of aortocoronary bypass graft; Z95.3 Presence of xenogenic heart valve; Z96.652 Presence of left artificial knee joint
CPT/HCPCS: 36415; 71010; 71020; 71275; 80048; 80053; 80162; 81003; 82040; 82272; 82306; 82374; 82550; 82553; 82607; 82728; 82747; 83540; 83550; 83605; 83735; 83880; 83883; 83921; 84155; 84165; 84484; 85025; 85027; 85045; 85379; 85610; 85730; 86850; 86900; 86901; 86920; 87040; 93005; 93970; 94640; 94760

== ENCOUNTER 2017-03-07 09:15 | Day surgery (SDC) | payer MEDICARE, OTHER ==
[~2017-03-07 09:15] MED LIST changes: -ALPRAZolam 0.25 MG TAB PO PRN; -ASPIRIN 325 MG TAB PO ONE; +Pre Op ABX Message 1 EACH MISC MISCELLANE ONE; -SODIUM CHLORIDE 0.9% 1,000 ML in EMPTY BAG 1 BAG IV ONE
[2017-03-07] MEDS ORDERED: LACTATED RINGERS 1,000 ML IV ONE (09:36)
[2017-03-07] MEDS ORDERED: LIDOCAINE 1% 20 ML VIAL (10MG/ML) FOR IV START INTRADERMA ONE (09:36)
[2017-03-07] MEDS ORDERED: PROPOFOL 10 MG/ML 20 ML VIAL IV ONE (10:07)
[2017-03-07] MEDS ORDERED: fentaNYL (PF) 50 MCG/ML 2 ML AMP ONE (10:07)
[2017-03-07] MEDS ORDERED: MIDAZOLAM 2 MG/2 ML VIAL ONE (10:07)
[2017-03-07] MEDS ORDERED: ePHEDrine SULFATE/0.9% NACL/PF 50 MG/5 ML SYRINGE IV ONE (10:07)
[2017-03-07] MEDS ORDERED: SODIUM CHLORIDE 0.9% 50 ML with ceFAZolin 2,000 MG IV ONE ×2 (10:18)
--- NOTE | 2017-03-07 10:53 | P.OP ---
Date of Procedure: 03/07/17 Preoperative Diagnosis: Sternal wound complication Postoperative Diagnosis: Same Procedure(s) Performed: Sternal wound exploration, debridement, application of wound VAC Implants: Anesthesia: MAC Surgeon: Jae Riggs Estimated Blood Loss (ml): 5 IV fluids (ml): 200 Pathology: other (Sternal debridement) Condition: stable Disposition: PACU Indications for Procedure: Patient is 5 months status post valve heart surgery. His postoperative course was complicated by wound dehiscence. At the end of September he underwent sternal wound exploration and debridement and bilateral pectoralis muscle flap closure. He re-presented to my office about 10 days ago with a pointing wound at the inferior sternal wound. This was opened and some old blood was drained. There was no evidence of infection and cultures have been negative. He was on oral antibiotics and the wound was packed and he was sent to the wound clinic. After several days of treatment at the wound clinic he was returned to me with the recommendation that the wound be opened further for wound VAC placement. Was seen in the office Tuesday and I concurred. Operative Findings: There is a small open area at the inferior portion of the sternal wound. There was no surrounding erythema. There was no drainage. There was some packing which had been placed in the office by me on Tuesday. This was removed. The area was sterilely prepped and draped. IV sedation was given. Incision was made from this open area proximally a distance of about 7 cm. The area had some bleeding throughout no evidence of pus. There was some necrotic fat present. The area was gently debrided with some gauze and some Q-tips. Incision was 7-1/2 cm long 1.5 cm wide and about 5 cm deep. There was additional tunnel of 3-4 cm proximally. A appropriately sized and shaped white wound VAC foam piece was cut. This was placed in the wound with 8 tongue extending up into the tunnel. Wound VAC was placed over this. An VAC was attached and good seal was noted. The patient was transferred to recovery. Description of Procedure: Plan - Discharge Summary New Discharge Prescriptions: No Action Warfarin [Coumadin] 3 mg PO HS Amiodarone [Cordarone] 200 mg PO DAILY #7 tab Calcium Carb-Vit D 500Mg-200Un [Oscal 500+D] 1 each PO BID-W/MEALS tab Ferrous Sulfate [Iron (65 MG Elemental)] 325 mg PO W/LUNCH #7 tab Furosemide [Lasix] 60 mg PO BID@0900,1600 #14 tab Ipratropium-Albuterol Nebulize [Duoneb 0.5 mg-3 mg/3 ml Soln] 3 ml INHALATION RT-QID PRN #30 neb PRN Reason: Shortness Of Breath Metoprolol Tartrate [Lopressor] 25 mg PO BID #7 tab Spironolactone [Aldactone] 25 mg PO DAILY #7 tab Aspirin 81 mg PO HS #7 Atorvastatin Calcium [Lipitor] 10 mg PO HS@2000 #7 Digoxin [Lanoxin] 125 mcg PO Q48H #7 HYDROcodone/APAP 10-325MG [[place] 10-325] 1 tab PO Q4HR PRN #20 PRN Reason: Moderate Pain LORazepam [Ativan] 0.25 mg PO Q6H PRN #7 PRN Reason: Anxiety Melatonin 3 mg PO HS@2000 #7 Minerin Lotion(Emollient) 1 applic TOPICAL BID@499,1999 #1 Multivitamins, Thera [Multivitamin (formulary)] 1 tab PO HS #7 Sennosides [Senna] 8.6 mg PO BID PRN #14 PRN Reason: Constipation Cephalexin [Keflex] 500 mg PO Q8HR Lovastatin [Mevacor] 40 mg PO HS Levothyroxine Sodium [Synthroid] 150 mcg PO DAILY@0500 Pantoprazole [Protonix] 20 mg PO AC-BRKFST Discharge Medication List Warfarin [Coumadin] 3 mg PO HS 12/17/16 [History] Amiodarone [Cordarone] 200 mg PO DAILY #7 tab 01/03/17 [Rx] Aspirin 81 mg PO HS #7 01/03/17 [Rx] Atorvastatin Calcium [Lipitor] 10 mg PO HS@1999 #7 01/03/17 [Rx] Calcium Carb-Vit D 500Mg-200Un [Oscal 500+D] 1 each PO BID-W/MEALS tab [Rx] Digoxin [Lanoxin] 125 mcg PO Q48H #7 01/03/17 [Rx] Ferrous Sulfate [Iron (65 MG Elemental)] 325 mg PO W/LUNCH #7 tab 01/03/17 [Rx] Furosemide [Lasix] 60 mg PO BID@0900,1600 #14 tab 01/03/17 [Rx] HYDROcodone/APAP 10-325MG [[place] 10-325] 1 tab PO Q4HR PRN #20 01/03/17 [Rx] Ipratropium-Albuterol Nebulize [Duoneb 0.5 mg-3 mg/3 ml Soln] 3 ml INHALATION RT -QID PRN #30 neb 01/03/17 [Rx] LORazepam [Ativan] 0.25 mg PO Q6H PRN #7 01/03/17 [Rx] Melatonin 3 mg PO HS@2000 #7 01/03/17 [Rx] Metoprolol Tartrate [Lopressor] 25 mg PO BID #7 tab 01/03/17 [Rx] Minerin Lotion(Emollient) 1 applic TOPICAL BID@ #1 01/03/17 [Rx] Multivitamins, Thera [Multivitamin (formulary)] 1 tab PO HS #7 01/03/17 [Rx] Sennosides [Senna] 8.6 mg PO BID PRN #14 01/03/17 [Rx] Spironolactone [Aldactone] 25 mg PO DAILY #7 tab 01/03/17 [Rx] Cephalexin [Keflex] 500 mg PO Q8HR 03/07/17 [History] Levothyroxine Sodium [Synthroid] 150 mcg PO DAILY@0500 03/07/17 [History] Lovastatin [Mevacor] 40 mg PO HS 03/07/17 [History] Pantoprazole [Protonix] 20 mg PO AC-BRKFST 03/07/17 [History]
[2017-03-07 12:37] VITALS: BP 98/60; PULSE 66; RESP 18; TEMP 97.6
== END 2017-03-07 12:30 | disposition home health service (06) ==
LOC: OR 09:15
PROVIDERS: ATTEND Thoracic Surgery (Cardiothoracic Vascular Surgery)
DX: T81.31XA Disruption of external operation (surgical) wound, not elsewhere classified, initial encounter (principal); I10 Essential (primary) hypertension; E78.5 Hyperlipidemia, unspecified; J44.9 Chronic obstructive pulmonary disease, unspecified; I48.91 Unspecified atrial fibrillation; E07.9 Disorder of thyroid, unspecified; K21.9 Gastro-esophageal reflux disease without esophagitis; Z79.01 Long term (current) use of anticoagulants; Z79.891 Long term (current) use of opiate analgesic; Z79.899 Other long term (current) drug therapy; Z95.1 Presence of aortocoronary bypass graft
CPT/HCPCS: 11042; 88304; J2250; J3010; J0690; J2704

== ENCOUNTER 2017-11-18 10:41 | Day surgery (SDC) | payer MEDICARE, OTHER ==
[2017-11-16 14:52] VITALS: BMI 30.1
[~2017-11-18 10:41] MED LIST changes: +LACTATED RINGERS 1,000 ML IV SCH; -Pre Op ABX Message 1 EACH MISC MISCELLANE ONE
[2017-11-18 11:09] VITALS: RESP 16; TEMP 98.6
[2017-11-18] MEDS ORDERED: LIDOCAINE 1% 20 ML VIAL (10MG/ML) FOR IV START INTRADERMA ONE (11:17)
[2017-11-18] MEDS ORDERED: fentaNYL (PF) 50 MCG/ML 2 ML AMP ONE (11:28)
[2017-11-18] MEDS ORDERED: PROPOFOL 10 MG/ML 20 ML VIAL IV ONE (11:28)
[2017-11-18] MEDS ORDERED: MIDAZOLAM 2 MG/2 ML VIAL ONE (11:28)
--- NOTE | 2017-11-18 11:53 | P.PCN ---
Date of Procedure: 11/18/17 Procedure(s) Performed: Brief history: Patient is a pleasant 72-year-old white male, scheduled for an elective upper endoscopy as well as colonoscopy as a part of evaluation of iron deficiency anemia. Procedure performed: Esophagogastroduodenoscopy with biopsy Colonoscopy Preoperative diagnosis: Iron deficiency anemia [place] [facility] [place]: After informed consent was obtained from the patient was brought into the endoscopy unit and IV sedation was administered by anesthesia under continuous monitoring. Initially upper endoscopy was done. The Olympus GF 160 video endoscope was inserted inserted into the mouth and esophagus intubated without any difficulty and was gradually advanced into the stomach and duodenum and carefully examined. The bulb and second part of the duodenum appeared normal. Biopsies were done from the duodenum to rule out celiac disease. The scope was then withdrawn into the stomach adequately insufflated with air and upon careful examination the antrum and body, had mild gastritis and biopsies were done from this area. The cardia and fundus appeared normal. The scope was then withdrawn into the esophagus. Small hiatal hernia noted. The GE junction was located at 40 cm to the incisors. It appeared irregular with no erythema erosions or ulcerations. Rest of the esophagus appeared normal. Patient tolerated the procedure well. At this time the patient continued to remain sedation. Initial digital rectal examination was normal. Olympus CF 160 video colonoscope was then inserted into the rectum and gradually advanced to the cecum without any difficulty. Careful examination was performed as the scope was gradually being withdrawn. The prep was excellent. The cecum, ascending colon, transverse colon, descending colon, sigmoid colon and rectum appeared normal. Retroflexion was performed in the rectum and no lesions were noted. Patient tolerated the procedure well. Impression: 1. Upper endoscopy revealed antral gastritis and small hiatal hernia but no evidence of esophagitis or peptic ulcer disease 2. Colonoscopy was essentially within normal limits with no evidence of colitis or colorectal neoplasia Recommendations: Findings of this examination were discussed with the patient as well his family. He was advised to follow with the biopsy results. He will follow with Dr. Marie hannah.
[2017-11-18 12:17] VITALS: BP 105/81; PULSE 77
== END 2017-11-18 12:37 | disposition home or self-care (01) ==
LOC: ORWHC2ENDO 10:41
PROVIDERS: ATTEND Internal Medicine Gastroenterology
DX: K29.50 Unspecified chronic gastritis without bleeding (principal); K44.9 Diaphragmatic hernia without obstruction or gangrene; D50.9 Iron deficiency anemia, unspecified; I50.9 Heart failure, unspecified; I10 Essential (primary) hypertension; E78.5 Hyperlipidemia, unspecified; Z86.711 Personal history of pulmonary embolism; E07.9 Disorder of thyroid, unspecified; I48.91 Unspecified atrial fibrillation; Z79.01 Long term (current) use of anticoagulants; Z79.899 Other long term (current) drug therapy; Z79.890 Hormone replacement therapy
CPT/HCPCS: 88305; 45378; 43239; J2250; J3010; J2704

== ENCOUNTER → 2018-03-28 | Outpatient (CLI) | payer MEDICARE, OTHER ==
--- NOTE | 2018-03-28 14:48 | MR ---
EXAMINATION TYPE: MR brain wo con DATE OF EXAM: 03/28/2018 COMPARISON: CT 10/06/2016 HISTORY: 73-year-old male confusion, frontal lobe, CVA TECHNIQUE: Multiplanar, multisequence images of the brain and brainstem were acquired without IV con trast. Diffusion weighted imaging is performed. FINDINGS: No evidence for acute infarction, hemorrhage, mass, mass effect, midline shift, herniation, effacemen t of basal cisterns, or extra-axial fluid collection. There is mild to moderate generalized supratentorial volume loss. Major intracranial flow voids are intact. T2/FLAIR weighted sequences show moderate to severe patchy and confluent bright white matter change i n the periventricular, deep, and subcortical regions of both cerebral hemispheres. Additional abnorma l foci of signal are present in the bilateral basal ganglia, thalami, and obed. Numerous prominent pe rivascular spaces are also present. Midline structures demonstrate normal morphology. The craniocervical junction is normal. Leftward nasal septal deviation. Mild mucosal thickening ethmoid air cells and some trapped fluid in the left mastoid air cells. Globes are intact. IMPRESSION: 1. Mild to moderate generalized atrophy and moderate to severe patchy and confluent T2 bright white m atter change. This is nonspecific but most likely relates to severe burden of chronic small vessel is chemic disease. 2. No acute intracranial abnormality seen. 3. Some trapped fluid in the left mastoid air cells. Correlate for any mastoid pain to exclude mastoi ditis..
== END | disposition home or self-care (01) ==
LOC: RADMRIMAIN 13:23
PROVIDERS: ATTEND Psychiatry & Neurology Neurology
DX: I63.9 Cerebral infarction, unspecified (principal); G31.9 Degenerative disease of nervous system, unspecified; R90.82 White matter disease, unspecified
CPT/HCPCS: 70551

== ENCOUNTER 2018-09-30 19:28 | Emergency (ER) | payer MEDICARE, OTHER ==
[2018-09-30 19:34] VITALS: TEMP 98
--- NOTE | 2018-09-30 21:15 | ED ---
Fall HPI - General Chief Complaint: Fall Stated Complaint: Leg pain Time Seen by Provider: 09/30/18 19:41 Source: patient Mode of arrival: ambulatory - History of Present Illness Initial Comments: 73-year-old male patient presents to the emergency department today for evaluation of right leg pain and swelling and skin tear to the right forearm after experiencing a fall. Patient states he is out of the bar when his leg went down through the flanks. Patient denies hitting his head or losing consciousness. States he was upright the entire time. States he was able to ambulate without much pain or difficulty after the injury. He denies any numbness or tingling to the leg or foot. Patient does take Coumadin. Last tetanus vaccine was 2 years ago. Patient denies any headache, neck pain, back pain, chest pain, shortness of breath, dizziness, weakness, abdominal pain, nausea, vomiting, or difficulties with bowel movements or urination. - Related Data Home Medications Medication Instructions Recorded Confirmed Aspirin 81 mg PO DAILY 06/07/17 11/16/17 Atorvastatin Calcium [Lipitor] 10 mg PO HS 06/07/17 11/16/17 Digoxin [Lanoxin] 125 mcg PO QAM 06/07/17 11/16/17 Ferrous Sulfate [Iron (65 MG 325 mg PO DAILY 06/07/17 11/16/17 Elemental)] Furosemide [Lasix] 40 mg PO QAM 06/07/17 11/16/17 Levothyroxine Sodium [Synthroid] 137 mcg PO DAILY 06/07/17 11/16/17 Melatonin 10 mg PO HS 06/07/17 11/16/17 Multivitamins, Thera [Multivitamin 1 tab PO DAILY 06/07/17 11/16/17 (formulary)] Warfarin [Coumadin] 2.5 mg PO HS 06/07/17 11/16/17 Venlafaxine HCl [Effexor XR] 37.5 mg PO DAILY 11/16/17 11/16/17 Previous Rx's Medication Instructions Recorded Spironolactone [Aldactone] 25 mg PO DAILY #7 tab 01/03/17 Allergies Allergy/AdvReac Type Severity Reaction Status Date / Time No Known Allergies Allergy Verified 11/18/17 11:05 Review of Systems ROS Statement: Those systems with pertinent positive or pertinent negative responses have been documented in the HPI. ROS Other: All systems not noted in ROS Statement are negative. Past Medical History Past Medical History: Atrial Fibrillation, Cancer, Heart Failure, Deep Vein Thrombosis (DVT), Hypertension, Osteoarthritis (OA), Pulmonary Embolus (PE), Thyroid Disorder Additional Past Medical History / Comment(s): THYROID CANCER with surgery/radio active tablets, varicose veins, rheumatic fever, hx aortic valve insufficiency and mitral valve regurgitation, History of Any Multi-Drug Resistant Organisms: None Reported Past Surgical History: Cardiac Valve Replacement, Heart Catheterization, Joint Replacement Additional Past Surgical History / Comment(s): thyroidectomy, total left knee replacement, JAYDE, 09/29/16 aortic valve replacement with bovine valve and mitral valve repair, mediastinal lymph node biopsy, sternal chest wound with wound vac- RESOLVED, COLONOSCOPY, EGD Past Anesthesia/Blood Transfusion Reactions: No Reported Reaction Past Psychological History: Depression Smoking Status: Former smoker - Past Family History Father Family Medical History: Coronary Artery Disease (CAD) Additional Family Medical History / Comment(s): Father at 76yrs from heart problems. Mother Family Medical History: No Reported History Additional Family Medical History / Comment(s): Mother at the age of 92 yrs. She had varicose veins Brother(s) Family Medical History: Cancer Additional Family Medical History / Comment(s): LIVER CA. BLOOD CLOT. General Exam Limitations: no limitations General appearance: alert, in no apparent distress, other (Physical well- developed, well-nourished elderly male patient in no acute distress. Vital signs upon presentation are temperature 98.0F, pulse 89, respirations 18, pulse ox 98% on room air.) Head exam: Present: atraumatic, normocephalic, normal inspection Eye exam: Present: normal appearance, PERRL, EOMI. Absent: scleral icterus, conjunctival injection, periorbital swelling ENT exam: Present: normal exam, normal oropharynx, mucous membranes moist Neck exam: Present: normal inspection, full ROM, other (Nontender, no step-off, no deformity to firm midline palpation of the posterior cervical spine. Full range of motion without pain or limitation.). Absent: tenderness, meningismus, lymphadenopathy Respiratory exam: Present: normal lung sounds bilaterally. Absent: respiratory distress, wheezes, rales, rhonchi, stridor Cardiovascular Exam: Present: regular rate, normal rhythm, normal heart sounds. Absent: systolic murmur, diastolic murmur, rubs, gallop, clicks GI/Abdominal exam: Present: soft, normal bowel sounds. Absent: distended, tenderness, guarding, rebound, rigid Extremities exam: Present: full ROM, tenderness (Right lateral calf), normal capillary refill, other (Patient has a large hematoma noted to the right lateral calf, there is slight bluish discoloration. Skin is otherwise pink, warm, and dry. Cap refills less than 3 seconds. Pedal and posttibial pulses are 2+ and equal bilaterally. Patient has no increased pain with passive or active plantar or dorsiflexion. Patient has small skin tear noted to the right forearm, no active bleeding. Skin is otherwise pink, warm, dry. Cap refills less than 3 seconds. Radial pulses 2+ and equal bilaterally.). Absent: normal inspection, pedal edema, joint swelling, calf tenderness Back exam: Present: normal inspection, other (Nontender, no step-off, no deformity to firm midline palpation of the thoracic and lumbar vertebrae. Full range of motion without pain or limitation.). Absent: vertebral tenderness Neurological exam: Present: alert, oriented X3, CN II-XII intact Psychiatric exam: Present: normal affect, normal mood Skin exam: Present: warm, dry, intact, normal color. Absent: rash Course Vital Signs 09/30/18 09/30/18 09/30/18 19:30 21:31 22:23 Temperature 98.0 F Pulse Rate 89 60 67 Respiratory 18 16 18 Rate Blood Pressure 100/70 97/65 O2 Sat by Pulse 98 99 Oximetry Medical Decision Making - Medical Decision Making 73-year-old male patient presents to the emergency department today for evaluation of injury to the right forearm and right leg after falling to the floor of his barn. Physical examination did reveal large hematoma to the right lateral calf. No wounds to the skin. There is also a small skin tear to the right forearm. No bony tenderness to either extremity. X-ray of the right tib- fib was obtained and shows no acute fractures or dislocations. Did place right leg and Kieran wrap with gentle pressure. He is instructed to apply ice and keep this elevated. He will be instructed to follow-up with orthopedics for further evaluation of this large hematoma. We did discuss signs or symptoms of compartment syndrome and is instructed to return immediately should any of these occur. We discussed wound care. He is instructed to follow-up with his primary care physician for recheck in 1-2 days. Return parameters were discussed in detail. He verbalizes understanding and agrees with this plan. - Radiology Data Radiology results: report reviewed, image reviewed Two-view x-ray of the right tib-fib were obtained. Impression by Dr. Mata shows soft tissue swelling over the proximal third anterior tibia. Disposition Clinical Impression: Hematoma of right lower extremity, Skin tear of right forearm without complication Disposition: HOME SELF-CARE Condition: Good Instructions (If sedation given, give patient instructions): Skin Tear (ED), Hematoma (ED) Additional Instructions: Continue to apply ice to the right leg. Keep wound to right arm clean and dry. Follow-up with desktop support specialist for further evaluation of the right calf. Follow-up with your primary care physician for recheck in 1-2 days. Return to the emergency department immediately for any new, worsening, or concerning symptoms. Is patient prescribed a controlled substance at d/c from ED?: No Referrals: Shabnam Chew MD [Primary Care Provider] - 1-2 days Tree Acuna DO [Doctor of Osteopathic Medicine] - 1-2 days Time of Disposition: 21:47
--- NOTE | 2018-09-30 21:43 | XR ---
EXAMINATION TYPE: XR tibia fibula RT DATE OF EXAM: 09/30/2018 COMPARISON: None HISTORY: Lacerations to right leg TECHNIQUE: 2 view right tibia and fibula FINDINGS: Degenerative changes are at the knee. Some degenerative changes noted. The ankle Soft tissues appear intact. The osseous structures appear intact. No acute fractures are evident. There is soft tissue swelling over the proximal anterior tibia. No radiopaque foreign bodies are evident. IMPRESSION: 1. Soft tissue swelling over the proximal third anterior tibia.
[2018-09-30 22:24] VITALS: BP 97/65; PULSE 67; RESP 18
== END 2018-09-30 22:23 | disposition home or self-care (01) ==
LOC: EC 19:28
DX: S51.811A Laceration without foreign body of right forearm, initial encounter (principal); S80.11XA Contusion of right lower leg, initial encounter; I48.91 Unspecified atrial fibrillation; I50.9 Heart failure, unspecified; I11.0 Hypertensive heart disease with heart failure; E07.9 Disorder of thyroid, unspecified; M19.90 Unspecified osteoarthritis, unspecified site; F32.9 Major depressive disorder, single episode, unspecified; Z85.850 Personal history of malignant neoplasm of thyroid; Z86.711 Personal history of pulmonary embolism; Z87.891 Personal history of nicotine dependence; Z79.01 Long term (current) use of anticoagulants; Z79.82 Long term (current) use of aspirin; Z79.890 Hormone replacement therapy; Z79.899 Other long term (current) drug therapy; Z95.2 Presence of prosthetic heart valve; Z95.818 Presence of other cardiac implants and grafts; Z96.652 Presence of left artificial knee joint; W19.XXXA Unspecified fall, initial encounter; Y92.009 Unspecified place in unspecified non-institutional (private) residence as the place of occurrence of the external cause
CPT/HCPCS: 99283

== ENCOUNTER → 2018-10-04 | Outpatient (CLI) | payer MEDICARE, OTHER ==
--- NOTE | 2018-10-04 11:34 | XR ---
EXAMINATION TYPE: XR chest 2V DATE OF EXAM: 10/04/2018 COMPARISON: 12/31/2016 HISTORY: Pre-MRI clearance TECHNIQUE: Frontal and lateral views of the chest are obtained. FINDINGS: There is no focal air space opacity, pleural effusion, or pneumothorax seen. The cardiac silhouette size is upper limits of normal with cardiac valvular replacement and closure device. Few m ediastinal clips are present. Midthoracic compression deformity is unchanged from 2017. Mild multilev el degenerative changes of the thoracic spine are also noted. Flattening of the diaphragms on the lat eral view relates underlying COPD. IMPRESSION: No acute cardiopulmonary process. Status post cardiac valvular replacement, although typ ically MRI safe ensure harnessmaker card safety.
== END | disposition home or self-care (01) ==
LOC: RADXRMAIN 10:44
PROVIDERS: ATTEND Orthopaedic Surgery Sports Medicine
DX: Z01.818 Encounter for other preprocedural examination (principal); Z95.4 Presence of other heart-valve replacement
CPT/HCPCS: 71046

== ENCOUNTER 2018-10-05 10:55 | Inpatient (IN) | payer MEDICARE, OTHER ==
[2018-10-05] MEDS ORDERED: ONDANSETRON 4 MG/2 ML VIAL IVP PRN (11:21)
[2018-10-05] MEDS ORDERED: MAGNESIUM HYDROXIDE 2,400 MG/10 ML CUP PO PRN (11:21)
[2018-10-05] MEDS ORDERED: NALOXONE 0.4 MG/ML 1 ML VIAL IV PRN (11:21)
[2018-10-05] MEDS ORDERED: BISACODYL 10 MG SUPP RECTAL PRN (11:21)
[2018-10-05] MEDS ORDERED: traMADol 50 MG TAB PO PRN (11:21)
[2018-10-05] MEDS ORDERED: HYDROmorphone 0.5 MG/0.5 ML SYRINGE IVP PRN ×3 (11:21)
[2018-10-05] MEDS ORDERED: TEMAZEPAM 15 MG CAP PO PRN (11:21)
[2018-10-05] MEDS ORDERED: NA PHOS,M-B/NA PHOS,DI-BA 133 ML ENEMA RECTAL PRN (11:21)
[2018-10-05] MEDS ORDERED: HYDROcodone/APAP 5-325MG 1 EACH TAB PO PRN (11:21)
[2018-10-05] MEDS ORDERED: HYDROcodone/APAP 10-325MG 1 EACH TAB PO PRN (11:21)
[2018-10-05] MEDS ORDERED: DIAZEPAM 5 MG TAB PO PRN (11:21)
[2018-10-05] MEDS ORDERED: HYDROcodone/APAP 7.5-325MG 1 EACH TAB PO PRN (11:21)
--- NOTE | 2018-10-05 11:54 | P.HPOR ---
History of Present Illness H&P Date: 10/05/18 Chief Complaint: Right lower leg pain, redness, hematoma Jn is a 73 year old male that is being admitted from our office after increased pain and redness about his right lower leg. He had sustained an injury to his lower leg when he fell through his floor at home on 09/30/18. His and patient report that Jn has skin issues with healing. He had heart surgery which needed platsic surgery due to difficulty with healing. He was hospitalized for cellulitis 3 years ago. Patient states his pain level is at 6/10. He continues to have pain, stiffness, swelling and bruising. Patient states his symptoms are worse with walking and stairs. The patient has had zenobia tment for his symptoms including cane and walker. He is currently denying calf pain, fever, chills, chest pain or shortness of breath. He denies numbness, tingling or weakness. Review of Systems All systems: negative Constitutional: Denies chills, Denies fever Eyes: denies blurred vision, denies pain Ears, nose, mouth and throat: Denies headache, Denies sore throat Cardiovascular: Denies chest pain, Denies shortness of breath Respiratory: Denies cough Gastrointestinal: Denies abdominal pain, Denies diarrhea, Denies nausea, Denies vomiting Musculoskeletal: Denies myalgias Integumentary: Denies pruritus, Denies rash Neurological: Denies numbness, Denies weakness Psychiatric: Denies anxiety, Denies depression Endocrine: Denies fatigue, Denies weight change Past Medical History Past Medical History: Atrial Fibrillation, Cancer, Heart Failure, Deep Vein Thrombosis (DVT), Hypertension, Osteoarthritis (OA), Pulmonary Embolus (PE), Thyroid Disorder Additional Past Medical History / Comment(s): THYROID CANCER with surgery/radio active tablets, varicose veins, rheumatic fever, hx aortic valve insufficiency and mitral valve regurgitation, History of Any Multi-Drug Resistant Organisms: None Reported Past Surgical History: Cardiac Valve Replacement, Heart Catheterization, Joint Replacement Additional Past Surgical History / Comment(s): thyroidectomy, total left knee replacement, JAYDE, 09/29/16 aortic valve replacement with bovine valve and mitral valve repair, mediastinal lymph node biopsy, sternal chest wound with wound vac-RESOLVED, COLONOSCOPY, EGD Past Anesthesia/Blood Transfusion Reactions: No Reported Reaction Past Psychological History: Depression Smoking Status: Former smoker - Past Family History Father Family Medical History: Coronary Artery Disease (CAD) Additional Family Medical History / Comment(s): Father at 76yrs from heart problems. Mother Family Medical History: No Reported History Additional Family Medical History / Comment(s): Mother at the age of 92 yrs. She had varicose veins Brother(s) Family Medical History: Cancer Additional Family Medical History / Comment(s): LIVER CA. BLOOD CLOT. Medications and Allergies Home Medications Medication Instructions Recorded Confirmed Type Spironolactone [Aldactone] 25 mg PO DAILY #7 tab 01/03/17 11/16/17 Rx Aspirin 81 mg PO DAILY 06/07/17 11/16/17 History Atorvastatin Calcium [Lipitor] 10 mg PO HS 06/07/17 11/16/17 History Digoxin [Lanoxin] 125 mcg PO QAM 06/07/17 11/16/17 History Ferrous Sulfate [Iron (65 MG 325 mg PO DAILY 06/07/17 11/16/17 History Elemental)] Furosemide [Lasix] 40 mg PO QAM 06/07/17 11/16/17 History Levothyroxine Sodium [Synthroid] 137 mcg PO DAILY 06/07/17 11/16/17 History Melatonin 10 mg PO HS 06/07/17 11/16/17 History Multivitamins, Thera [Multivitamin 1 tab PO DAILY 06/07/17 11/16/17 History (formulary)] Warfarin [Coumadin] 2.5 mg PO HS 06/07/17 11/16/17 History Venlafaxine HCl [Effexor XR] 37.5 mg PO DAILY 11/16/17 11/16/17 History Allergies Allergy/AdvReac Type Severity Reaction Status Date / Time No Known Allergies Allergy Verified 11/18/17 11:05 Physical Examination Inspection of right lower leg shows a large hematoma in the area of the lateral tib/fib 10 cm distal to the knee. There is clear blistering over the area of the hematoma. There is no evidence of purulent drainage. There is diffuse erythema. Calf is nontender. 1+ DP and less than 2 sec cap refill present. Full inversion, eversion, plantar flexion and dorsiflexion of the foot. Intact sensation at the lateral, medial and plantar first dorsal web spaces. Assessment and Plan (1) Hematoma of right lower extremity Narrative/Plan: Patient is being admitted in plans for surgical I and D with wound vac placement tomorrow, 10/06/18. Internal medicine, infectious disease and cardiology have been consulted for assistance with perioperative management and directive of an tibiotic therapy. Labs have been ordered. He is NPO after midnight and procedure/consent has been ordered. Continue pain management, wound care and elevation. Current Visit: No Status: Acute Priority: Medium Code(s): S80.11XA - CONTUSION OF RIGHT LOWER LEG, INITIAL ENCOUNTER SNOMED Code(s): 005441799 Time with Patient: Less than 30
[2018-10-05 12:10] LABS: Basophils % (A) 0 %; Eosinophils # (A) 0.2 k/uL (0-0.7); Eosinophils % (A) 2 %; HCT 37.6 % (39.0-53.0); HGB 12.2 gm/dL (13.0-17.5); Lymphocytes # (A) 0.9 k/uL (1.0-4.8); Lymphocytes % (A) 11 %; MCH 30.7 pg (25.0-35.0); MCHC 32.4 g/dL (31.0-37.0); MCV 94.5 fL (80.0-100.0); Mean Platelet Volume 7.6; Monocytes # (A) 0.6 k/uL (0-1.0); Monocytes % (A) 7 %; Neutrophils # (A) 6.8 k/uL (1.3-7.7); Neutrophils % (A) 78 %; Platelet Count 265 k/uL (150-450); RBC 3.98 m/uL (4.30-5.90); RDW 14.9 % (11.5-15.5); WBC 8.7 k/uL (3.8-10.6)
[2018-10-05 12:24] LABS: Albumin 3.6 g/dL (3.5-5.0); Potassium 4.4 mmol/L (3.5-5.1); Total Bilirubin 1.5 mg/dL (0.2-1.3); Total Protein 6.6 g/dL (6.3-8.2)
--- NOTE | 2018-10-05 14:04 | P.CONS ---
History of Present Illness - Reason for Consult Consult date: 10/05/18 cellulitis Requesting physician: Joe Mckeon - Chief Complaint right leg swelling and pain - History of Present Illness Patient is a 73-year-old male past medical history of atrial fibrillation on chronic Coumadin therapy, congestive heart failure with unknown ejection fraction, arthritis, hypertension, dyslipidemia, and prior aortic valve replacement with mitral valve repair resulting in sternal infection requiring sternotomy and wound VAC who presented as a direct admit from Dr. Mckeon's office secondary to hematoma and cellulitis. Patient reports that he fell through the floor of his shed on 09/30/18. He then injured his leg and his right arm. He started noticing some swelling and pain and presented to the ER. He had a tib-fib x-ray which showed no signs of fracture. He subsequently followed up with Dr. Mckeon on Tuesday of this week. Since that time he has noted increased redness, increased warmth, increased swelling, and increased pain. He reports the pain is mostly in his right ankle and is worse with ambulation and better with rest. He has not been taking anything for the pain at home. He denies any fevers or chills. He did not faint or pass out by just simply fell to the floor. He denies any recent chest pain, shortness of breath, or palpitations. He ambulates regularly. He follows with Dr. Alice Ordoñez for cardiology and Dr. Chew is his primary care physician. He has a chronic cough with phlegm production which is unchanged. He has a history of insomnia but sleeps well with the use of melatonin. does report that he has short- term memory loss after prolonged ICU stay. He has difficulty remembering the situation and what is going on but has made significant improvements in this aspect. Review of Systems Pertinent positives and negatives as discussed in HPI, a complete review of systems was performed and all other systems are negative. Past Medical History Past Medical History: Atrial Fibrillation, Cancer, Heart Failure, Deep Vein Thrombosis (DVT), Hyperlipidemia, Hypertension, Osteoarthritis (OA), Pulmonary Embolus (PE), Thyroid Disorder, Vascular Disorder Additional Past Medical History / Comment(s): THYROID CANCER with surgery/radio active tablets, bilateral lower leg cellulitis 2015, varicose veins, past DVTs and PEs, short term memory problems, episodes of hypotension, hiatal hernia, gastritis. Insomnia. Depression. Atrial fibrillation. History of Any Multi-Drug Resistant Organisms: None Reported Past Surgical History: Cardiac Valve Replacement, Heart Catheterization, Joint Replacement Additional Past Surgical History / Comment(s): Thyroidectomy, total left knee replacement, JAYDE/CVN, 09/29/16 aortic valve replacement with bovine valve and mitral valve repair, mediastinal lymph node biopsy, sternal chest wound debridement/ wound vac/sternotomy and muscle straps, COLONOSCOPY, EGD, bilateral cataract removals and L eye was injured requirin surgery to remove blood. Past Anesthesia/Blood Transfusion Reactions: No Reported Reaction Additional Past Anesthesia/Blood Transfusion Reaction / Comm: Pt has received blood in past without reaction. Smoking Status: Former smoker Past Alcohol Use History: Rare Past Drug Use History: None Reported Additional History: lives with his spouse, no assistive devices - Past Family History Father Family Medical History: Coronary Artery Disease (CAD) Additional Family Medical History / Comment(s): Father at the age pf 76yrs from heart problems. Mother Family Medical History: Vascular Disorder Additional Family Medical History / Comment(s): Mother had varicosities. She lived to be 92 yrs old. Brother(s) Family Medical History: Cancer Additional Family Medical History / Comment(s): LIVER CA. BLOOD CLOT. Medications and Allergies Home Medications Medication Instructions Recorded Confirmed Type Spironolactone [Aldactone] 25 mg PO DAILY #7 tab 01/03/17 11/16/17 Rx Aspirin 81 mg PO DAILY 06/07/17 11/16/17 History Atorvastatin Calcium [Lipitor] 10 mg PO HS 06/07/17 11/16/17 History Digoxin [Lanoxin] 125 mcg PO QAM 06/07/17 11/16/17 History Ferrous Sulfate [Iron (65 MG 325 mg PO DAILY 06/07/17 11/16/17 History Elemental)] Furosemide [Lasix] 40 mg PO QAM 06/07/17 11/16/17 History Levothyroxine Sodium [Synthroid] 137 mcg PO DAILY 06/07/17 11/16/17 History Melatonin 10 mg PO HS 06/07/17 11/16/17 History Multivitamins, Thera [Multivitamin 1 tab PO DAILY 06/07/17 11/16/17 History (formulary)] Warfarin [Coumadin] 2.5 mg PO HS 06/07/17 11/16/17 History Venlafaxine HCl [Effexor XR] 37.5 mg PO DAILY 11/16/17 11/16/17 History Allergies Allergy/AdvReac Type Severity Reaction Status Date / Time No Known Allergies Allergy Verified 11/18/17 11:05 Physical Exam Osteopathic Statement: *. No significant issues noted on an osteopathic structural exam other than those noted in the History and Physical/Consult. Vitals: Vital Signs Temp Pulse Resp BP Pulse Ox 10/05/18 13:42 97.9 F 77 16 154/75 94 L 10/05/18 11:34 97.8 F 77 16 122/76 91 L Intake and Output 10/04/18 10/05/18 10/05/18 22:59 06:59 14:59 Other: Weight 100 kg General: non toxic, no distress, appears at stated age, normal weight Derm: Right leg with ecchymosis, warmth and small abrasion on lateral calf, warm, dry, right arm with ecchymosis and abrasion Head: atraumatic, normocephalic, symmetric Eyes: EOMI, no lid lag, anicteric sclera, pupils equal round reactive to light ENT: Nose and ears atraumatic, no thrush, no pharyngeal erythema Neck: No thyromegaly, no cervical lymphadenopathy, trachea midline, supple Mouth: no lip lesion, mucus membranes moist Cardiovascular: out pouching over sternal area, S1S2 reg, no murmur, positive posterior tibial pulse bilateral, no edema, capillary refill less than 2 seconds Lungs: CTA bilateral, no rhonchi, no rales , no accessory muscle use Abdominal: soft, nontender to palpation, no guarding, no appreciable organomegaly, normal bowel sounds Ext: no gross muscle atrophy, muscle strength 5 out of 5 in all 4 extremities grossly, no contractures, Neuro: CN II-XI grossly intact, light touch intact all 4 extremities, finger to nose within normal limits, Psych: Alert, oriented, appropriate affect Results CBC & Chem 7: 10/05/18 11:46 10/05/18 11:46 Labs: Abnormal Lab Results - Last 24 Hours (Table) 10/05/18 10/05/18 Range/Units 11:46 11:46 RBC 3.98 L (4.30-5.90) m/uL Hgb 12.2 L (13.0-17.5) gm/dL Hct 37.6 L (39.0-53.0) % Lymphocytes # 0.9 L (1.0-4.8) k/uL BUN 25 H (9-20) mg/dL Glucose 117 H (74-99) mg/dL Calcium 8.0 L (8.4-10.2) mg/dL Total Bilirubin 1.5 H (0.2-1.3) mg/dL Alkaline Phosphatase 136 H (38-126) U/L Assessment and Plan Assessment: Right lower extremity hematoma - Await ID recs, no elevated WBC - Plan is for I and D in AM with ortho - Pain control - MRI results from Dr. Mckeon office - hold coumadin and ASA A fib, chronic coumadin use - stat INR - repeat INR in AM - hold coumadin tonight - Continue digoxin Compensated CHF, Unknown EF - No chronically on BB or ACEI, continue aldactone and lasix Insomina - lasix Short term memory loss - safe and supportive enironment HLD - continue home statin HTN, controlled - follow BP - Continue home aldactone and lasix Chronic anemia, at baseline - follow CBC - continue iron supplementation Thank you for allowing us to participate in the care of this patient. Do not hesitate to contact us with questions. Someone can be reached from the [facility] hospitalist group at all hours of the day at [phone]. DVT prophylaxis: Per orthopedic surgery
[2018-10-05 15:11] LABS: INR 1.9 (<1.2); Prothrombin Time 18.9 sec (9.0-12.0)
[2018-10-05] MEDS ORDERED: PHYTONADIONE ORAL 5 MG/5 ML ORAL.SYRG PO STA (15:12)
[2018-10-05] MEDS: LACTATED RINGERS 1,000 ML IV SCH (17:43)
[2018-10-05] MEDS: ATORVASTATIN 10 MG TAB PO SCH (20:18)
[2018-10-05] MEDS: SENNOSIDES-DOCUSATE SODIUM 1 EACH TAB PO SCH (20:18)
[2018-10-05] MEDS: MELATONIN 5 MG TABLET PO SCH (20:18)
[2018-10-06] MEDS: LACTATED RINGERS 1,000 ML IV SCH ×2 (00:15→19:28)
--- NOTE | 2018-10-06 00:20 | P.CONS ---
History of Present Illness - Reason for Consult Consult date: 10/06/18 - Chief Complaint Fall with hematoma - History of Present Illness 73-year-old male who has a history of aortic valve repair and pulmonary histoplasmosis who has a history of prior significant hospitalizations and complexity. Has been doing modestly well per the , he was in the barn when the floor gave way and he fell into the subflooring causing the significant injury and hematoma to the right leg. He has been seen by orthopedics and admitted for the surgical incision and drainage that is planned. At this time the patient has pain and is somewhat miserable because of the problem awaiting surgical intervention. He is not having high-grade fevers or chills but due to the injury and need for wound care was topically the consult has been requested as well as antibiotic therapy. Review of Systems HEENT:Denies headache or acute visual change. Denies sinus or mouth discomforts. Denies neck stiffness or pain. Denies significant oral cavity pain. Denies difficulty on swallowing. Lungs: Denies significant shortness of breath, cough, sputum production, or hemoptysis. Cardiovascular: Denies significant shortness of breath, chest pain, chest wall pain, orthopnea, dyspnea on exertion, syncope Gastrointestinal:Denies nausea, vomiting, diarrhea, constipation, hematemesis, melena, hematochezia. No no significant change of bowel habit noticed. Musculoskeletal: Really hematoma with discomfort Skin: Large hematoma right leg significantly uncomfortable Neuro: Denies headache or visual change. Denies any new onset weakness or difficulty with ambulation. Denies falls or seizures. Psychiatric:Denies anxiety or depression. Endocrine: No acute weight loss fatigue has been stable Past Medical History Past Medical History: Atrial Fibrillation, Cancer, Heart Failure, Deep Vein Thrombosis (DVT), Hyperlipidemia, Hypertension, Osteoarthritis (OA), Pulmonary Embolus (PE), Thyroid Disorder, Vascular Disorder Additional Past Medical History / Comment(s): THYROID CANCER with surgery/radio active tablets, bilateral lower leg cellulitis 2015, varicose veins, past DVTs and PEs, short term memory problems, episodes of hypotension, hiatal hernia, gastritis. Insomnia. Depression. Atrial fibrillation. History of Any Multi-Drug Resistant Organisms: None Reported Past Surgical History: Cardiac Valve Replacement, Heart Catheterization, Joint Replacement Additional Past Surgical History / Comment(s): Thyroidectomy, total left knee replacement, JAYDE/CVN, 09/29/16 aortic valve replacement with bovine valve and mitral valve repair, mediastinal lymph node biopsy, sternal chest wound debridement/ wound vac/sternotomy and muscle straps, COLONOSCOPY, EGD, bilateral cataract removals and L eye was injured requirin surgery to remove blood. Past Anesthesia/Blood Transfusion Reactions: No Reported Reaction Additional Past Anesthesia/Blood Transfusion Reaction / Comm: Pt has received blood in past without reaction. Additional Psychological History / Comment(s): and lives in the family home with the . 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 No experience. No new animals Smoking Status: Former smoker Past Alcohol Use History: Rare Past Drug Use History: None Reported - Past Family History Father Family Medical History: Coronary Artery Disease (CAD) Additional Family Medical History / Comment(s): Father at the age pf 76yrs from heart problems. Mother Family Medical History: Vascular Disorder Additional Family Medical History / Comment(s): Mother had varicosities. She lived to be 92 yrs old. Brother(s) Family Medical History: Cancer Additional Family Medical History / Comment(s): LIVER CA. BLOOD CLOT. Medications and Allergies Home Medications and Allergies Comment(s): Current Medications Hydrocodone Bitart/Acetaminophen ([place] 10) 1 each PO Q6H PRN PRN Reason: Pain Scale 9 to 10 Hydrocodone Bitart/Acetaminophen ([place] 5-325) 1 each PO Q6HR PRN PRN Reason: Pain Scale 1 to 3 Hydrocodone Bitart/Acetaminophen ([place] 5-325) 2 each PO Q6HR PRN PRN Reason: Pain Scale 4 TO 6 Hydrocodone Bitart/Acetaminophen ([place] 7.5-325) 1 each PO Q6H PRN PRN Reason: Pain Scale 7 TO 8 Atorvastatin Calcium (Lipitor) 10 mg PO HS [facility] Last Admin: 10/05/18 20:18 Dose: 10 mg Documented by: Bisacodyl (Dulcolax) 10 mg RECTAL DAILY PRN PRN Reason: Constipation Diazepam (Valium) 2.5 mg PO Q8HR PRN PRN Reason: Mild Spasms Digoxin (Lanoxin) 125 mcg PO QAM [facility] Donepezil HCl (Aricept) 5 mg PO DAILY [facility] Ferrous Sulfate (Feosol) 325 mg PO DAILY [facility] Furosemide (Lasix) 40 mg PO QAM [facility] Hydromorphone HCl (Dilaudid) 0.125 mg IVP Q3HR PRN PRN Reason: Pain Scale 1 to 3 Hydromorphone HCl (Dilaudid) 0.25 mg IVP Q3HR PRN PRN Reason: Pain Scale 4 to 6 Hydromorphone HCl (Dilaudid) 0.5 mg IVP Q3HR PRN PRN Reason: Pain Scale 7 to 10 Lactated Ringer's (Lactated Ringers) 1,000 mls @ 75 mls/hr IV .[id number] [facility] Last Admin: 10/05/18 17:43 Dose: 75 mls/hr Documented by: Levothyroxine Sodium (Synthroid) 150 mcg PO DAILY@0600 [facility] Magnesium Hydroxide (Milk Of Magnesia) 2,400 mg PO DAILY PRN PRN Reason: Constipation Melatonin (Melatonin) 10 mg PO HS [facility] Last Admin: 10/05/18 20:18 Dose: 10 mg Documented by: Methylphenidate HCl (Ritalin) 10 mg PO BID@0700,1400 [facility] Metoprolol Tartrate (Lopressor) 25 mg PO BID@0700,1400 [facility] Naloxone HCl (Narcan) 0.2 mg IV Q2M PRN PRN Reason: Opioid Reversal Ondansetron HCl (Zofran) 4 mg IVP Q8HR PRN PRN Reason: Nausea And Vomiting Senna/Docusate Sodium (Senokot-S) 2 each PO HS [facility] Last Admin: 10/05/18 20:18 Dose: Not Given Documented by: Sodium Biphosphate/Sodium Phosphate ([place] Adult) 133 ml RECTAL DAILY PRN PRN Reason: Constipation Spironolactone (Aldactone) 25 mg PO DAILY [facility] Temazepam (Restoril) 15 mg PO HS PRN PRN Reason: Insomnia Tramadol HCl (Ultram) 50 mg PO Q6HR PRN PRN Reason: MODERATE PAIN Venlafaxine HCl (Effexor Xr) 75 mg PO DAILY [facility] Home Medications Medication Instructions Recorded Confirmed Type Spironolactone [Aldactone] 25 mg PO DAILY #7 tab 01/03/17 10/05/18 Rx Aspirin 81 mg PO DAILY 06/07/17 10/05/18 History Atorvastatin Calcium [Lipitor] 10 mg PO DAILY 06/07/17 10/05/18 History Digoxin [Lanoxin] 125 mcg PO QAM 06/07/17 11/16/17 History Ferrous Sulfate [Iron (65 MG 325 mg PO DAILY 06/07/17 11/16/17 History Elemental)] Furosemide [Lasix] 40 mg PO QAM 06/07/17 11/16/17 History Melatonin 10 mg PO HS 06/07/17 11/16/17 History Donepezil [Aricept] 5 mg PO DAILY 10/05/18 10/05/18 History Levothyroxine Sodium [Synthroid] 150 mcg PO DAILY@0600 10/05/18 10/05/18 History Methylphenidate HCl [Ritalin] 10 mg PO BID@0700,1400 10/05/18 10/05/18 History Metoprolol Tartrate 25 mg PO BID@0700,1400 10/05/18 10/05/18 History Venlafaxine HCl ER [Effexor Xr] 75 mg PO DAILY 10/05/18 10/05/18 History Warfarin Sodium [Coumadin] 5 mg PO DIRECTED 10/05/18 10/05/18 History Allergies Allergy/AdvReac Type Severity Reaction Status Date / Time No Known Allergies Allergy Verified 10/05/18 14:11 Physical Exam Vitals: Vital Signs Temp Pulse Resp BP Pulse Ox 10/05/18 18:54 97.5 F L 104 H 16 104/74 95 10/05/18 13:42 97.9 F 77 16 154/75 94 L 10/05/18 11:34 97.8 F 77 16 122/76 91 L Intake and Output 10/05/18 10/05/18 10/06/18 14:59 22:59 06:59 Intake Total 240 Output Total 475 Balance -235 Intake: Oral 240 Output: Urine 475 Other: # Voids 3 Weight 100 kg Pleasant 73-year-old male in some discomfort because of the trauma to the right leg. HEENT: Anicteric conjunctiva are pink and moist nasal mucosa grossly intact without significant lesions, there is no thrush. Neck: The neck is supple without significant lymphadenopathy or thyromegaly. Lungs: Good bilateral air entry without significant crackles or wheezing. There is no significant bronchial sounds. There is no egophony or dullness. Heart: Regular rate and rhythm with an audible S1-S2, no S3 no S4. There is no significant murmur click or rub, PMI was nondisplaced. Abdomen: Positive bowel sounds soft and nontender without palpable masses or organomegaly. There was no guarding or rebound. Extremities: Upper shoulders show evidence of areas of ecchymosis from his activity in his thin skin and chronic anticoagulation therapy. The left lower extremity is without acute abnormality. Recollection he shows evidence of massive edema especially the lateral surface of the calf with the extensive hematoma, warmth or erythema and significant tenderness. Nothing is open and draining at this time. There is some edema all the way to the foot. Neuro: Awake alert oriented to person place and time. There are no acute new gross focal sensory motor deficits. Results CBC & Chem 7: 10/05/18 11:46 10/05/18 11:46 Labs: Abnormal Lab Results - Last 24 Hours (Table) 10/05/18 10/05/18 10/05/18 Range/Units :46 11:46 14:12 RBC 3.98 L (4.30-5.90) m/uL Hgb 12.2 L (13.0-17.5) gm/dL Hct 37.6 L (39.0-53.0) % Lymphocytes # 0.9 L (1.0-4.8) k/uL PT 18.9 H (9.0-12.0) sec INR 1.9 H (<1.2) BUN 25 H (9-20) mg/dL Glucose 117 H (74-99) mg/dL Calcium 8.0 L (8.4-10.2) mg/dL Total Bilirubin 1.5 H (0.2-1.3) mg/dL Alkaline Phosphatase 136 H (38-126) U/L Laboratory Results WBC 8.7 k/uL (3.8-10.6) 10/05/18 11:46 RBC 3.98 m/uL (4.30-5.90) L 10/05/18 11:46 Hgb 12.2 gm/dL (13.0-17.5) L 10/05/18 11:46 Hct 37.6 % (39.0-53.0) L 10/05/18 11:46 MCV 94.5 fL (80.0-100.0) 10/05/18 11:46 MCH 30.7 pg (25.0-35.0) 10/05/18 11:46 MCHC 32.4 g/dL (31.0-37.0) 10/05/18 11:46 RDW 14.9 % (11.5-15.5) 10/05/18 11:46 Plt Count 265 k/uL (150-450) 10/05/18 11:46 Neutrophils % 78 % 10/05/18 11:46 Lymphocytes % 11 % 10/05/18 11:46 Monocytes % 7 % 10/05/18 11:46 Eosinophils % 2 % 10/05/18 11:46 Basophils % 0 % 10/05/18 11:46 Neutrophils # 6.8 k/uL (1.3-7.7) 10/05/18 11:46 Lymphocytes # 0.9 k/uL (1.0-4.8) L 10/05/18 11:46 Monocytes # 0.6 k/uL (0-1.0) 10/05/18 11:46 Eosinophils # 0.2 k/uL (0-0.7) 10/05/18 11:46 Basophils # 0.0 k/uL (0-0.2) 10/05/18 11:46 PT 18.9 sec (9.0-12.0) H 10/05/18 14:12 INR 1.9 (<1.2) H 10/05/18 14:12 Sodium 138 mmol/L (137-145) 10/05/18 11:46 Potassium 4.4 mmol/L (3.5-5.1) 10/05/18 11:46 Chloride 103 mmol/L (98-107) 10/05/18 11:46 Carbon Dioxide 27 mmol/L (22-30) 10/05/18 11:46 Anion Gap 8 mmol/L 10/05/18 11:46 BUN 25 mg/dL (9-20) H 10/05/18 11:46 Creatinine 1.08 mg/dL (0.66-1.25) 10/05/18 11:46 Est GFR (CKD-EPI)AfAm 77 (>60 ml/min/1.73 sqM) 10/05/18 11:46 Est GFR (CKD-EPI)NonAf 67 (>60 ml/min/1.73 sqM) 10/05/18 11:46 Glucose 117 mg/dL (74-99) H 10/05/18 11:46 Calcium 8.0 mg/dL (8.4-10.2) L 10/05/18 11:46 Total Bilirubin 1.5 mg/dL (0.2-1.3) H 10/05/18 11:46 AST 33 U/L (17-59) 10/05/18 11:46 ALT 60 U/L (21-72) 10/05/18 11:46 Alkaline Phosphatase 136 U/L (38-126) H 10/05/18 11:46 Total Protein 6.6 g/dL (6.3-8.2) 10/05/18 11:46 Albumin 3.6 g/dL (3.5-5.0) 10/05/18 11:46 Assessment and Plan (1) Fall with injury Current Visit: Yes Status: Acute Code(s): W19.XXXA - UNSPECIFIED FALL, INITIAL ENCOUNTER SNOMED Code(s): 290093359 (2) Hematoma of right lower extremity Narrative/Plan: 73-year-old male who is a complex history including aortic valve replacement and a history of pulmonary histoplasmosis who is been treated in 2017 with improvement. He has never had an acute traumatic event to the right lower extremity and is now admitted for orthopedic intervention. Given the aortic valve replacement and complex history it is most prudent that antibiotic therapy is initiated, Ancef will be utilized at this time local wound care will be directed after the surgical intervention. Likely will have negative pressure therapy applied. With then have to follow the wound center for ongoing evaluations after his discharge. Pain control seems to be adequate. We'll monitor. Current Visit: No Status: Acute Priority: Medium Code(s): S80.11XA - CONTUSION OF RIGHT LOWER LEG, INITIAL ENCOUNTER SNOMED Code(s): 635929232
[2018-10-06] MEDS: LEVOTHYROXINE 75 MCG TAB PO SCH (05:03)
[2018-10-06] MEDS: METOPROLOL TARTRATE 25 MG TAB PO SCH ×2 (08:00→14:41)
[2018-10-06] MEDS: DIGOXIN 125 MCG TAB PO SCH (08:00)
[2018-10-06 08:04] LABS: Basophils % (A) 0 %; Eosinophils # (A) 0.3 k/uL (0-0.7); Eosinophils % (A) 3 %; HCT 36.8 % (39.0-53.0); HGB 11.7 gm/dL (13.0-17.5); Lymphocytes % (A) 10 %; MCH 30.2 pg (25.0-35.0); MCHC 31.9 g/dL (31.0-37.0); MCV 94.4 fL (80.0-100.0); Mean Platelet Volume 7.2; Monocytes # (A) 0.8 k/uL (0-1.0); Monocytes % (A) 8 %; Neutrophils # (A) 7.3 k/uL (1.3-7.7); Neutrophils % (A) 77 %; Platelet Count 263 k/uL (150-450); RBC 3.89 m/uL (4.30-5.90); RDW 14.3 % (11.5-15.5); WBC 9.5 k/uL (3.8-10.6)
[2018-10-06 08:18] LABS: INR 1.5 (<1.2); Prothrombin Time 14.7 sec (9.0-12.0)
[2018-10-06] MEDS ORDERED: IV FLUID CONTINUATION 1,000 ML IV ONE (10:53)
[2018-10-06] MEDS ORDERED: MIDAZOLAM 2 MG/2 ML VIAL IVP ONE (11:08)
[2018-10-06] MEDS ORDERED: PROPOFOL 10 MG/ML 20 ML VIAL IV ONE (11:50)
[2018-10-06] MEDS ORDERED: KETAMINE 10 MG/ML 20 ML VIAL ONE (11:50)
[2018-10-06] MEDS ORDERED: ceFAZolin 1,000 MG VIAL ONE (11:50)
[2018-10-06] MEDS ORDERED: ceFAZolin 3,000 MG in SODIUM CHLORIDE 0.9% IRRIGATIO 3,000 ML IRRIGATION ONE (12:21)
[2018-10-06] MEDS ORDERED: VANCOMYCIN IV PER PHARMACY 1 EACH MISC MISCELLANE PRN (12:44)
[2018-10-06] MEDS ORDERED: LACTATED RINGERS 1,000 ML IV ONE (12:44)
[2018-10-06] MEDS ORDERED: VANCOMYCIN 1,750 MG in SODIUM CHLORIDE 0.9% 500 ML 500 ML IVPB ONE (14:00)
--- NOTE | 2018-10-06 14:37 | P.PN ---
Subjective Progress Note Date: 10/06/18 Principal diagnosis: follow up for medical management of afib, hypertension , anemia. patient admitted for I and D and wound vac insertion due to right leg hematoma/cellulitis patient seen and examined, he tolerated procedure well today I&D. Over his right leg wound VAC was applied in that he removed due to blockage and bleeding. He denies any chest pain or trouble breathing. He still reports some pain in his right leg. Denies any nausea or vomiting 1 VAC was removed and then the area was flushed with saline and then repacked with gauze Objective - Vital Signs Vital signs: Vital Signs Temp 97.6 F 10/06/18 12:38 Pulse 84 10/06/18 13:00 Resp 18 10/06/18 13:00 BP 107/62 10/06/18 13:00 Pulse Ox 96 10/06/18 13:00 Intake & Output 10/05/18 10/06/18 10/06/18 18:59 06:59 18:59 Intake Total 598 403 4489 Output Total 1725 500 Balance 240 -975 2849 Weight 100 kg Intake: IV 3349 Intake, IV Titration 750 Amount Lactated Ringers 1,000 ml 750 @ 75 mls/hr IV .[id number] [facility] Rx#:[id number] Oral 240 Output: Urine 1725 400 Estimated Blood Loss 100 Other: Voiding Method Urinal # Voids 3 - Exam General: no acute distress, pleasant Cardiovascular: out pouching over sternal area, S1S2 reg, no murmur, positive posterior tibial pulse bilateral, no edema, capillary refill immediate Lungs: CTA bilateral, no rhonchi, no rales , no accessory muscle use Abdominal: soft, nontender to palpation, no guarding, no appreciable organomegaly, normal bowel sounds Ext:Right leg with ecchymosis, right arm and forearm with ecchymosis. Right leg is packed at site of I&D and wrapped with Kieran wrapped, no evidence of active bleeding since repacking. Wound VAC has been removed Psych: Alert, oriented, appropriate affect - Labs CBC & Chem 7: 10/06/18 06:55 10/05/18 11:46 Labs: Abnormal Lab Results - Last 24 Hours (Table) 10/05/18 10/06/18 10/06/18 Range/Units 14:12 06:55 06:55 RBC 3.89 L (4.30-5.90) m/uL Hgb 11.7 L (13.0-17.5) gm/dL Hct 36.8 L (39.0-53.0) % PT 18.9 H 14.7 H (9.0-12.0) sec INR 1.9 H 1.5 H (<1.2) Assessment and Plan Assessment: Patient is a 73-year-old male past medical history of atrial fibrillation on chronic Coumadin therapy, congestive heart failure with unknown ejection fraction, arthritis, hypertension, dyslipidemia, and prior aortic valve replacement with mitral valve repair resulting in sternal infection requiring sternotomy and wound VAC . who presented as a direct admit from Dr. Mckeon's office secondary to hematoma over his left leg after sustaining a fall and injury, no acute fractures. admitted for I and D and wound vac insertion per ortho surgery. Wound VAC was blocked by the bleeding which has been removed wound was repacked and wrapped with Kieran wrapping. Per ID recommendations patient to be on Ancef, (currently patient on vancomycin per orthopedic ) wound VAC will be probably reapplied on Tuesday Plan: Right lower extremity hematoma and cellulitis -ID recommending Ancef due to complex history of aortic valve replacement and traumatic injury now( patient is currently on vancomycin per orthopedic) follow- up cultures -Status post IND tolerated procedure well. Immediate postoperative course was complicated by blood clogging the wound VAC which has then been removed. Wound was repacked and wrapped with Kieran wrapping - Pain control Elevation of the limb A fib, chronic coumadin use - hold coumadin - Continue digoxin Cardiac monitoring Compensated CHF, Unknown EF - No chronically on BB or ACEI, continue aldactone and lasix Short term memory loss - safe and supportive environment HLD - continue home statin HTN, controlled - follow BP - Continue home aldactone and lasix Chronic anemia, at baseline - follow CBC - continue iron supplementation DVT prophylaxis: Per orthopedic surgery
[2018-10-06] MEDS: VENLAFAXINE HCL ER 75 MG CAP PO SCH (14:41)
[2018-10-06] MEDS: FUROSEMIDE 40 MG TAB PO SCH (14:41)
[2018-10-06] MEDS: METHYLPHENIDATE HCL 10 MG TAB PO SCH ×2 (14:42→14:43)
[2018-10-06] MEDS: FERROUS SULFATE 325 MG TAB PO SCH (14:43)
[2018-10-06] MEDS: SPIRONOLACTONE 25 MG TAB PO SCH (14:43)
--- NOTE | 2018-10-06 14:57 | P.CRDCN ---
History of Present Illness History of present illness: Attempted to see the patient and he was in the OR for his procedure, will try again tomorrow. Dr. Mckeon did have a phone conversation with Dr. Guadarrama prior to surgery. Past Medical History Past Medical History: Atrial Fibrillation, Cancer, Heart Failure, Deep Vein Thrombosis (DVT), Hyperlipidemia, Hypertension, Osteoarthritis (OA), Pulmonary Embolus (PE), Thyroid Disorder, Vascular Disorder Additional Past Medical History / Comment(s): THYROID CANCER with surgery/radio active tablets, bilateral lower leg cellulitis 2015, varicose veins, past DVTs and PEs, short term memory problems, episodes of hypotension, hiatal hernia, gastritis. Insomnia. Depression. Atrial fibrillation. History of Any Multi-Drug Resistant Organisms: None Reported Past Surgical History: Cardiac Valve Replacement, Heart Catheterization, Joint Replacement Additional Past Surgical History / Comment(s): Thyroidectomy, total left knee replacement, JAYDE/CVN, 09/29/16 aortic valve replacement with bovine valve and mitral valve repair, mediastinal lymph node biopsy, sternal chest wound debridement/ wound vac/sternotomy and muscle straps, COLONOSCOPY, EGD, bilateral cataract removals and L eye was injured requirin surgery to remove blood. Past Anesthesia/Blood Transfusion Reactions: No Reported Reaction Additional Past Anesthesia/Blood Transfusion Reaction / Comment(s): Pt has received blood in past without reaction. Additional Psychological History / Comment(s): and lives in the family home with the . 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 No experience. No new animals Smoking Status: Former smoker Past Alcohol Use History: Rare Past Drug Use History: None Reported - Past Family History Father Family Medical History: Coronary Artery Disease (CAD) Additional Family Medical History / Comment(s): Father at the age pf 76yrs from heart problems. Mother Family Medical History: Vascular Disorder Additional Family Medical History / Comment(s): Mother had varicosities. She lived to be 92 yrs old. Brother(s) Family Medical History: Cancer Additional Family Medical History / Comment(s): LIVER CA. BLOOD CLOT. Medications and Allergies Home Medications Medication Instructions Recorded Confirmed Type Spironolactone [Aldactone] 25 mg PO DAILY #7 tab 01/03/17 10/05/18 Rx Aspirin 81 mg PO DAILY 06/07/17 10/05/18 History Atorvastatin Calcium [Lipitor] 10 mg PO DAILY 06/07/17 10/05/18 History Digoxin [Lanoxin] 125 mcg PO QAM 06/07/17 11/16/17 History Ferrous Sulfate [Iron (65 MG 325 mg PO DAILY 06/07/17 11/16/17 History Elemental)] Furosemide [Lasix] 40 mg PO QAM 06/07/17 11/16/17 History Melatonin 10 mg PO HS 06/07/17 11/16/17 History Donepezil [Aricept] 5 mg PO DAILY 10/05/18 10/05/18 History Levothyroxine Sodium [Synthroid] 150 mcg PO DAILY@0600 10/05/18 10/05/18 History Methylphenidate HCl [Ritalin] 10 mg PO BID@0700,1400 10/05/18 10/05/18 History Metoprolol Tartrate 25 mg PO BID@0700,1400 10/05/18 10/05/18 History Venlafaxine HCl ER [Effexor Xr] 75 mg PO DAILY 10/05/18 10/05/18 History Warfarin Sodium [Coumadin] 5 mg PO DIRECTED 10/05/18 10/05/18 History Allergies Allergy/AdvReac Type Severity Reaction Status Date / Time No Known Allergies Allergy Verified 10/05/18 14:11 Physical Exam Vitals: Vital Signs Temp Pulse Resp BP Pulse Ox 10/06/18 13:00 84 18 107/62 96 10/06/18 12:45 81 18 112/61 97 10/06/18 12:38 97.6 F 81 20 113/65 96 10/06/18 10:56 97.8 F 89 16 117/81 97 10/06/18 08:00 16 10/06/18 07:32 98.4 F 81 16 116/70 95 10/06/18 00:05 98.8 F 101 H 15 109/68 95 10/05/18 18:54 97.5 F L 104 H 16 104/74 95 Intake and Output 10/05/18 10/06/18 10/06/18 22:59 06:59 14:59 Intake Total 917 984 5687 Output Total 475 1250 500 Balance -235 -500 2849 Intake: IV 3349 Intake, IV Titration 750 Amount Lactated Ringers 1,000 ml 750 @ 75 mls/hr IV .[id number] [facility] Rx#:[id number] Oral 240 Output: Urine 475 1250 400 Estimated Blood Loss 100 Other: Voiding Method Urinal Results 10/06/18 06:55 10/05/18 11:46 Coagulation 10/05/18 10/06/18 Range/Units 14:12 06:55 PT 18.9 H 14.7 H (9.0-12.0) sec CBC 10/06/18 Range/Units 06:55 WBC 9.5 (3.8-10.6) k/uL RBC 3.89 L (4.30-5.90) m/uL Hgb 11.7 L (13.0-17.5) gm/dL Hct 36.8 L (39.0-53.0) % Plt Count 263 (150-450) k/uL Current Medications Generic Name Dose Route Start Last Admin Trade Name Freq PRN Reason Stop Dose Admin Hydrocodone Bitart/Acetaminophen 1 each 10/05/18 11:21 [place] 10 PO Q6H PRN Pain Scale 9 to 10 Hydrocodone Bitart/Acetaminophen 1 each 10/05/18 11:21 [place] 5-325 PO Q6HR PRN Pain Scale 1 to 3 Hydrocodone Bitart/Acetaminophen 2 each 10/05/18 11:21 [place] 5-325 PO Q6HR PRN Pain Scale 4 TO 6 Hydrocodone Bitart/Acetaminophen 1 each 10/05/18 11:21 [place] 7.5-325 PO Q6H PRN Pain Scale 7 TO 8 Atorvastatin Calcium 10 mg 10/05/18 21:00 10/05/18 20:18 Lipitor PO 10 mg HS [facility] Administration Bisacodyl 10 mg 10/05/18 11:21 Dulcolax RECTAL DAILY PRN Constipation Diazepam 2.5 mg 10/05/18 11:21 Valium PO Q8HR PRN Mild Spasms Digoxin 125 mcg 10/06/18 09:00 10/06/18 08:00 Lanoxin PO 125 mcg QAM [facility] Administration Donepezil HCl 5 mg 10/06/18 09:00 Aricept PO DAILY [facility] Ferrous Sulfate 325 mg 10/06/18 09:00 10/06/18 14:43 Feosol PO 325 mg DAILY [facility] Administration Furosemide 40 mg 10/06/18 09:00 10/06/18 14:41 Lasix PO 40 mg QAM [facility] Administration Hydromorphone HCl 0.125 mg 10/05/18 11:21 Dilaudid IVP Q3HR PRN Pain Scale 1 to 3 Hydromorphone HCl 0.25 mg 10/05/18 11:21 Dilaudid IVP Q3HR PRN Pain Scale 4 to 6 Hydromorphone HCl 0.5 mg 10/05/18 11:21 Dilaudid IVP Q3HR PRN Pain Scale 7 to 10 Lactated Ringer's 1,000 mls @ 75 mls/hr 10/05/18 11:30 10/06/18 00:15 Lactated Ringers IV 75 mls/hr .[id number] [facility] Administration Vancomycin HCl 1,750 mg/ 500 mls @ 167 mls/hr 10/06/18 14:00 10/06/18 14:40 Sodium Chloride IVPB 10/06/18 16:59 167 mls/hr ONCE ONE Administration Vancomycin HCl 1,500 mg/ 250 mls @ 125 mls/hr 10/07/18 06:00 Sodium Chloride IVPB Q16H [facility] Levothyroxine Sodium 150 mcg 10/06/18 06:00 10/06/18 05:03 Synthroid PO Not Given DAILY@0600 [facility] Magnesium Hydroxide 2,400 mg 10/05/18 11:21 Milk Of Magnesia PO DAILY PRN Constipation Melatonin 10 mg 10/05/18 21:00 10/05/18 20:18 Melatonin PO 10 mg HS [facility] Administration Methylphenidate HCl 10 mg 10/06/18 07:00 10/06/18 14:43 Ritalin PO 10 mg BID@0700,1400 [facility] Administration Metoprolol Tartrate 25 mg 10/06/18 07:00 10/06/18 14:41 Lopressor PO 25 mg BID@0700,1400 [facility] Administration Naloxone HCl 0.2 mg 10/05/18 11:21 Narcan IV Q2M PRN Opioid Reversal Ondansetron HCl 4 mg 10/05/18 11:21 Zofran IVP Q8HR PRN Nausea And Vomiting Senna/Docusate Sodium 2 each 10/05/18 21:00 10/05/18 20:18 Senokot-S PO Not Given HS [facility] Sodium Biphosphate/Sodium Phosphate 133 ml 10/05/18 11:21 [place] Adult RECTAL DAILY PRN Constipation Spironolactone 25 mg 10/06/18 09:00 10/06/18 14:43 Aldactone PO 25 mg DAILY [facility] Administration Temazepam 15 mg 10/05/18 11:21 Restoril PO HS PRN Insomnia Tramadol HCl 50 mg 10/05/18 11:21 Ultram PO Q6HR PRN MODERATE PAIN Venlafaxine HCl 75 mg 10/06/18 09:00 10/06/18 14:41 Effexor Xr PO 75 mg DAILY [facility] Administration Intake and Output 10/05/18 10/06/18 10/06/18 22:59 06:59 14:59 Intake Total 925 614 1568 Output Total 475 1250 500 Balance -235 -500 2849 Intake: IV 3349 Intake, IV Titration 750 Amount Lactated Ringers 1,000 ml 750 @ 75 mls/hr IV .[id number] [facility] Rx#:[id number] Oral 240 Output: Urine 475 1250 400 Estimated Blood Loss 100 Other: Voiding Method Urinal 10/06/18 06:55 10/05/18 11:46
--- NOTE | 2018-10-06 15:23 | P.PN ---
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 Has been doing modestly well per the , he was in the barn when the floor gave way and he fell into the subflooring causing the significant inj ury and hematoma to the right leg. He has been seen by orthopedics and admitted for the surgical incision and drainage that is planned. At this time the patient has pain and is somewhat miserable because of the problem awaiting surgical intervention. He is not having high-grade fevers or chills but due to the injury and need for wound care was topically the consult has been requested as well as antibiotic therapy. Patient had the I&D today of the right lateral leg. vac was applied and now has blockage and bleeding. Pain at site is better but still at least a 5. Objective - Vital Signs Vital signs: Vital Signs Temp 97.8 F 10/06/18 13:15 Pulse 121 H 10/06/18 14:15 Resp 16 10/06/18 13:15 BP 123/74 10/06/18 14:15 Pulse Ox 95 10/06/18 14:15 Intake & Output 10/05/18 10/06/18 10/06/18 18:59 06:59 18:59 Intake Total 279 782 1071 Output Total 1725 500 Balance 240 -975 2849 Weight 100 kg Intake: IV 3349 Intake, IV Titration 750 Amount Lactated Ringers 1,000 ml 750 @ 75 mls/hr IV .[id number] [facility] Rx#:[id number] Oral 240 Output: Urine 1725 400 Estimated Blood Loss 100 Other: Voiding Method Urinal # Voids 3 - Exam Pleasant 73-year-old male in some discomfort because of the trauma to the right leg. HEENT: Anicteric conjunctiva are pink and moist nasal mucosa grossly intact without significant lesions, there is no thrush. Neck: The neck is supple without significant lymphadenopathy or thyromegaly. Lungs: Good bilateral air entry without significant crackles or wheezing. There is no significant bronchial sounds. There is no egophony or dullness. Heart: Regular rate and rhythm with an audible S1-S2, no S3 no S4. There is no significant murmur click or rub, PMI was nondisplaced. Abdomen: Positive bowel sounds soft and nontender without palpable masses or o rganomegaly. There was no guarding or rebound. Extremities: Upper shoulders show evidence of areas of ecchymosis from his activity in his thin skin and chronic anticoagulation therapy. The left lower extremity is without acute abnormality. Recollection he shows evidence of the surgical wound at the lateral surface of the calf. A wound VAC sponge was in place that is covered and clot and there is evidence of clot within the tubing. This will be the dressing is removed. The sponges were removed. The areas flush with saline and packed with saline moistened gauze. Dry gauze was then applied rolled gauze and Kieran wrap isn't applied. No active bleeding is noted at the end of the dressing change. Neuro: Awake alert oriented to person place and time. There are no acute new gross focal sensory motor deficits. - Labs CBC & Chem 7: 10/06/18 06:55 10/05/18 11:46 Labs: Abnormal Lab Results - Last 24 Hours (Table) 10/06/18 10/06/18 Range/Units 06:55 06:55 RBC 3.89 L (4.30-5.90) m/uL Hgb 11.7 L (13.0-17.5) gm/dL Hct 36.8 L (39.0-53.0) % PT 14.7 H (9.0-12.0) sec INR 1.5 H (<1.2) Assessment and Plan (1) Fall with injury Current Visit: Yes Status: Acute Code(s): W19.XXXA - UNSPECIFIED FALL, INITIAL ENCOUNTER SNOMED Code(s): 187930658 (2) Hematoma of right lower extremity Narrative/Plan: 73-year-old male who is a complex history including aortic valve replacement and a history of pulmonary histoplasmosis who is been treated in 2017 with improvement. He has never had an acute traumatic event to the right lower extremity and is now admitted for orthopedic intervention. Given the aortic valve replacement and complex history it is most prudent that antibiotic therapy is initiated, Ancef will be utilized at this time local wound care will be directed after the surgical intervention. Likely will have negative pressure therapy applied. With then have to follow the wound center for ongoing e valuations after his discharge. Pain control seems to be adequate. We'll monitor. 10/06/2012 patient is now in the incision and drainage performed. There was significant difficulty here in the postoperative time frame with bleeding and clot formed on the VAC sponge in clot within the tubing making the back inoperable. Constantly this is removed and the cavity is packed with saline moistened gauze. Was being is better controlled wound VAC can be restarted. This is likely going to be by Tuesday. Cultures are processing continue antibiotic therapy with Ancef until cultures are available. Elevation of the limb for now will help with the difficulty with bleeding postoperatively. Current Visit: No Status: Acute Priority: Medium Code(s): S80.11XA - CONTUSION OF RIGHT LOWER LEG, INITIAL ENCOUNTER SNOMED Code(s): 684737461
[2018-10-06] MEDS: DONEPEZIL 5 MG TAB PO SCH (19:28)
--- NOTE | 2018-10-06 19:35 | P.ONQ ---
Anesthesiology Proc Note - PNB - Peripheral Nerve Block Performed Right Popliteal Single Time Out Performed: Yes (1100) Procedure Start Time: 11:00 Procedure Stop Time: 11:10 Indication: Acute Post-Operative Pain, Dx/Pain Location (Right Leg Pain), Requested by physician Sedation Type: Sedate with meaningful contact maintained Preparation: Sterile Prep Position: Prone Catheter: None Needle Types: On-Q Needle Size: 100mm (4") Needle Gauge: 21 Technique: Ultrasound Injectate: Other (see comment) (20ml 0.5% ropivacaine + 5 ml 2% Lidocaine with 1:200,000) Adjunct: Epinephrine (see comment for dilution ratio) Blood Aspirated: No Pain Paresthesia on Injection Noted: No Resistance on Injection: Normal Events: Uneventful and Well Tolerated
[2018-10-06] MEDS ORDERED: SODIUM CHLORIDE 0.9% 500 ML 500 ML IV ONE (19:42)
[2018-10-06] MEDS ORDERED: METOPROLOL TARTRATE 50 MG TAB PO STA (19:42)
[2018-10-06] MEDS: SENNOSIDES-DOCUSATE SODIUM 1 EACH TAB PO SCH (19:57)
[2018-10-06] MEDS: ATORVASTATIN 10 MG TAB PO SCH (19:57)
[2018-10-06] MEDS: MELATONIN 5 MG TABLET PO SCH (19:57)
--- NOTE | 2018-10-06 19:58 | P.CRDCN ---
History of Present Illness Consult date: 10/06/18 History of present illness: This is a 73-year-old gentleman with history of aortic valve replacement and also mitral valve repair done in 2017. His postoperative care was complicated by sternal infection ,recurrent bouts of congestive heart failure and also requiring muscle flap closure for sternal infections. After long rehabilitation, patient has significantly improved and hasn't had any bouts of CHF recently. Patient doesn't have any underlying ischemic heart disease. Apparently patient fell recently and sustained significant hematoma right leg. Patient had incision and drainage and insertion of the wound VAC done today. Postoperatively patient is stable. Denies any chest pain or shortness of breath. He doesn't appear to be in acute distress at this time. We'll continue his current management and will follow him as necessary. Review of Systems As per the chart Past Medical History Past Medical History: Atrial Fibrillation, Cancer, Heart Failure, Deep Vein Thrombosis (DVT), Hyperlipidemia, Hypertension, Osteoarthritis (OA), Pulmonary Embolus (PE), Thyroid Disorder, Vascular Disorder Additional Past Medical History / Comment(s): THYROID CANCER with surgery/radio active tablets, bilateral lower leg cellulitis 2015, varicose veins, past DVTs and PEs, short term memory problems, episodes of hypotension, hiatal hernia, gastritis. Insomnia. Depression. Atrial fibrillation. History of Any Multi-Drug Resistant Organisms: None Reported Past Surgical History: Cardiac Valve Replacement, Heart Catheterization, Joint Replacement Additional Past Surgical History / Comment(s): Thyroidectomy, total left knee replacement, JAYDE/CVN, 09/29/16 aortic valve replacement with bovine valve and mitral valve repair, mediastinal lymph node biopsy, sternal chest wound debridement/ wound vac/sternotomy and muscle straps, COLONOSCOPY, EGD, bilateral cataract removals and L eye was injured requirin surgery to remove blood. Past Anesthesia/Blood Transfusion Reactions: No Reported Reaction Additional Past Anesthesia/Blood Transfusion Reaction / Comment(s): Pt has received blood in past without reaction. Additional Psychological History / Comment(s): and lives in the family home with the . 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 No experience. No new animals Smoking Status: Former smoker Past Alcohol Use History: Rare Past Drug Use History: None Reported - Past Family History Father Family Medical History: Coronary Artery Disease (CAD) Additional Family Medical History / Comment(s): Father at the age pf 76yrs from heart problems. Mother Family Medical History: Vascular Disorder Additional Family Medical History / Comment(s): Mother had varicosities. She lived to be 92 yrs old. Brother(s) Family Medical History: Cancer Additional Family Medical History / Comment(s): LIVER CA. BLOOD CLOT. Medications and Allergies Home Medications Medication Instructions Recorded Confirmed Type Spironolactone [Aldactone] 25 mg PO DAILY #7 tab 01/03/17 10/05/18 Rx Aspirin 81 mg PO DAILY 06/07/17 10/05/18 History Atorvastatin Calcium [Lipitor] 10 mg PO DAILY 06/07/17 10/05/18 History Digoxin [Lanoxin] 125 mcg PO QAM 06/07/17 11/16/17 History Ferrous Sulfate [Iron (65 MG 325 mg PO DAILY 06/07/17 11/16/17 History Elemental)] Furosemide [Lasix] 40 mg PO QAM 06/07/17 11/16/17 History Melatonin 10 mg PO HS 06/07/17 11/16/17 History Donepezil [Aricept] 5 mg PO DAILY 10/05/18 10/05/18 History Levothyroxine Sodium [Synthroid] 150 mcg PO DAILY@0600 10/05/18 10/05/18 History Methylphenidate HCl [Ritalin] 10 mg PO BID@0700,1400 10/05/18 10/05/18 History Metoprolol Tartrate 25 mg PO BID@0700,1400 10/05/18 10/05/18 History Venlafaxine HCl ER [Effexor Xr] 75 mg PO DAILY 10/05/18 10/05/18 History Warfarin Sodium [Coumadin] 5 mg PO DIRECTED 10/05/18 10/05/18 History Allergies Allergy/AdvReac Type Severity Reaction Status Date / Time No Known Allergies Allergy Verified 10/05/18 14:11 Physical Exam Vitals: Vital Signs Temp Pulse Resp BP Pulse Ox 10/06/18 14:15 121 H 123/74 95 10/06/18 14:00 121 H 128/77 93 L 10/06/18 13:45 87 116/73 94 L 10/06/18 13:30 85 94 L 10/06/18 13:15 97.8 F 128 H 16 105/68 92 L 10/06/18 13:00 84 18 107/62 96 10/06/18 12:45 81 18 112/61 97 10/06/18 12:38 97.6 F 81 20 113/65 96 10/06/18 10:56 97.8 F 89 16 117/81 97 10/06/18 08:00 16 10/06/18 07:32 98.4 F 81 16 116/70 95 10/06/18 00:05 98.8 F 101 H 15 109/68 95 Intake and Output 10/06/18 10/06/18 10/06/18 06:59 14:59 22:59 Intake Total 750 3349 Output Total 1250 500 Balance -500 2849 Intake: IV 3349 Intake, IV Titration 750 Amount Lactated Ringers 1,000 ml 750 @ 75 mls/hr IV .[id number] [facility] Rx#:[id number] Output: Urine 1250 400 Estimated Blood Loss 100 GENERAL EXAM: Patient is alert and oriented and doesn't appear to be in any acute distress HEENT: Normocephalic. Normal reaction of pupils, equal size, normal range of extraocular motion. No erythema or exudates in the throat. NECK: No masses, no nuchal rigidity. CHEST: Status post surgery hip muscle flapping LUNGS: Equal air entry with no crackles or wheeze. HEART: S1 and S2 normal with no audible mumurs or gallops. Regular rhythm, femorals equal on both sides.. ABDOMEN: No hepatosplenomegaly, normal bowel sounds, no guarding or rigidity. SKIN: No rashes CENTRAL NERVOUS SYSTEM: No focal deficits. EXTREMITIES: Patient had a dressing on the right leg, postsurgical Results 10/06/18 06:55 10/05/18 11:46 Coagulation 10/06/18 Range/Units 06:55 PT 14.7 H (9.0-12.0) sec CBC 10/06/18 Range/Units 06:55 WBC 9.5 (3.8-10.6) k/uL RBC 3.89 L (4.30-5.90) m/uL Hgb 11.7 L (13.0-17.5) gm/dL Hct 36.8 L (39.0-53.0) % Plt Count 263 (150-450) k/uL Current Medications Generic Name Dose Route Start Last Admin Trade Name Freq PRN Reason Stop Dose Admin Hydrocodone Bitart/Acetaminophen 1 each 10/05/18 11:21 [place] 10 PO Q6H PRN Pain Scale 9 to 10 Hydrocodone Bitart/Acetaminophen 1 each 10/05/18 11:21 [place] 5-325 PO Q6HR PRN Pain Scale 1 to 3 Hydrocodone Bitart/Acetaminophen 2 each 10/05/18 11:21 [place] 5-325 PO Q6HR PRN Pain Scale 4 TO 6 Hydrocodone Bitart/Acetaminophen 1 each 10/05/18 11:21 [place] 7.5-325 PO Q6H PRN Pain Scale 7 TO 8 Atorvastatin Calcium 10 mg 10/05/18 21:00 10/05/18 20:18 Lipitor PO 10 mg HS STEVAN Administration Bisacodyl 10 mg 10/05/18 11:21 Dulcolax RECTAL DAILY PRN Constipation Diazepam 2.5 mg 10/05/18 11:21 Valium PO Q8HR PRN Mild Spasms Digoxin 125 mcg 10/06/18 09:00 10/06/18 08:00 Lanoxin PO 125 mcg QAM STEVAN Administration Donepezil HCl 5 mg 10/06/18 09:00 10/06/18 19:28 Aricept PO Not Given DAILY [facility] Ferrous Sulfate 325 mg 10/06/18 09:00 10/06/18 14:43 Feosol PO 325 mg DAILY [facility] Administration Furosemide 40 mg 10/06/18 09:00 10/06/18 14:41 Lasix PO 40 mg QAM STEVAN Administration Hydromorphone HCl 0.125 mg 10/05/18 11:21 Dilaudid IVP Q3HR PRN Pain Scale 1 to 3 Hydromorphone HCl 0.25 mg 10/05/18 11:21 Dilaudid IVP Q3HR PRN Pain Scale 4 to 6 Hydromorphone HCl 0.5 mg 10/05/18 11:21 Dilaudid IVP Q3HR PRN Pain Scale 7 to 10 Lactated Ringer's 1,000 mls @ 75 mls/hr 10/05/18 11:30 10/06/18 19:28 Lactated Ringers IV Not Given .[id number] [facility] Vancomycin HCl 1,500 mg/ 250 mls @ 125 mls/hr 10/07/18 06:00 Sodium Chloride IVPB Q16H STEVAN Sodium Chloride 500 mls @ 999 mls/hr 10/06/18 19:42 Saline 0.9% IV 10/06/18 20:12 .Q31M ONE Levothyroxine Sodium 150 mcg 10/06/18 06:00 10/06/18 05:03 Synthroid PO Not Given DAILY@0600 STEVAN Magnesium Hydroxide 2,400 mg 10/05/18 11:21 Milk Of Magnesia PO DAILY PRN Constipation Melatonin 10 mg 10/05/18 21:00 10/05/18 20:18 Melatonin PO 10 mg HS STEVAN Administration Methylphenidate HCl 10 mg 10/06/18 07:00 10/06/18 14:43 Ritalin PO 10 mg BID@0700,1400 STEVAN Administration Metoprolol Tartrate 25 mg 10/06/18 07:00 10/06/18 14:41 Lopressor PO 25 mg BID@0700,1400 STEVAN Administration Naloxone HCl 0.2 mg 10/05/18 11:21 Narcan IV Q2M PRN Opioid Reversal Ondansetron HCl 4 mg 10/05/18 11:21 Zofran IVP Q8HR PRN Nausea And Vomiting Senna/Docusate Sodium 2 each 10/05/18 21:00 10/05/18 20:18 Senokot-S PO Not Given HS [facility] Sodium Biphosphate/Sodium Phosphate 133 ml 10/05/18 11:21 [place] RECTAL DAILY PRN Constipation Spironolactone 25 mg 10/06/18 09:00 10/06/18 14:43 Aldactone PO 25 mg DAILY STEVAN Administration Temazepam 15 mg 10/05/18 11:21 Restoril PO HS PRN Insomnia Tramadol HCl 50 mg 10/05/18 11:21 Ultram PO Q6HR PRN MODERATE PAIN Venlafaxine HCl 75 mg 10/06/18 09:00 10/06/18 14:41 Effexor Xr PO 75 mg DAILY STEVAN Administration Intake and Output 10/06/18 10/06/18 10/06/18 06:59 14:59 22:59 Intake Total 750 3349 Output Total 1250 500 Balance -500 2849 Intake: IV 3349 Intake, IV Titration 750 Amount Lactated Ringers 1,000 ml 750 @ 75 mls/hr IV .[id number] [facility] Rx#:[id number] Output: Urine 1250 400 Estimated Blood Loss 100 10/06/18 06:55 10/05/18 11:46 Assessment and Plan (1) Fall with injury Current Visit: Yes Status: Acute Code(s): W19.XXXA - UNSPECIFIED FALL, INITIAL ENCOUNTER SNOMED Code(s): 696437004 (2) Hematoma of right lower extremity Current Visit: Yes Status: Acute Code(s): S80.11XA - CONTUSION OF RIGHT LOWER LEG, INITIAL ENCOUNTER SNOMED Code(s): 913864479 (3) Congestive heart failure Current Visit: No Status: Acute Code(s): I50.9 - HEART FAILURE, UNSPECIFIED SNOMED Code(s): 65583097 (4) Diastolic CHF, acute on chronic Current Visit: No Status: Acute Code(s): I50.33 - ACUTE ON CHRONIC DIASTOLIC (CONGESTIVE) HEART FAILURE SNOMED Code(s): 633703735 (5) Histoplasmosis Current Visit: No Status: Acute Code(s): B39.9 - HISTOPLASMOSIS, UNSPECIFIED SNOMED Code(s): 16591349 (6) Hyperlipemia Current Visit: No Status: Acute Code(s): E78.5 - HYPERLIPIDEMIA, UNSPECIFIED SNOMED Code(s): 88857548 (7) Hypertension Current Visit: No Status: Acute Code(s): I10 - ESSENTIAL (PRIMARY) HYPERTENSION SNOMED Code(s): 74836213 (8) Paroxysmal a-fib Current Visit: No Status: Acute Code(s): I48.0 - PAROXYSMAL ATRIAL F IBRILLATION SNOMED Code(s): 760179712 (9) S/P AVR (aortic valve replacement) Current Visit: No Status: Acute Code(s): Z95.2 - PRESENCE OF PROSTHETIC HEART VALVE SNOMED Code(s): 7189464417948 (10) S/P MVR (mitral valve repair) Current Visit: No Status: Acute Code(s): Z98.890 - OTHER SPECIFIED POSTPROCEDURAL STATES SNOMED Code(s): 047621033 (11) Status post aortic valve replacement Current Visit: No Status: Acute Code(s): Z95.2 - PRESENCE OF PROSTHETIC HEART VALVE SNOMED Code(s): 2643331678955 Plan: Patient tolerated the procedure well. Denies any chest pain or shortness of breath. Continue current medical therapy. We'll follow him as needed
[2018-10-06 20:39] LABS: HCT 39.4 % (39.0-53.0); HGB 12.2 gm/dL (13.0-17.5); MCH 29.9 pg (25.0-35.0); MCHC 31.1 g/dL (31.0-37.0); MCV 96.1 fL (80.0-100.0); Mean Platelet Volume 7.2; Platelet Count 369 k/uL (150-450); RDW 14.2 % (11.5-15.5); WBC 15.4 k/uL (3.8-10.6)
[2018-10-06] MEDS: HYDROcodone/APAP 5-325MG 1 EACH TAB PO PRN (23:02)
[2018-10-07] MEDS: LACTATED RINGERS 1,000 ML IV SCH ×2 (04:19→21:28)
[2018-10-07] MEDS: LEVOTHYROXINE 75 MCG TAB PO SCH (05:12)
[2018-10-07] MEDS: VANCOMYCIN 1,500 MG in SODIUM CHLORIDE 0.9% 250 ML IVPB SCH ×2 (05:13→21:29)
[2018-10-07] MEDS ORDERED: VANCOMYCIN 1,750 MG in SODIUM CHLORIDE 0.9% 500 ML 500 ML IVPB SCH (06:00)
--- NOTE | 2018-10-07 06:30 | OP ---
OPERATIVE REPORT DATE OF PROCEDURE: 10/06/2018. SURGEON: Joe Mckeon M.D. RESEARCH CONSULTANT: Zay RODRIGUEZ. PREOPERATIVE DIAGNOSIS: Right lateral leg hematoma. POSTOPERATIVE DIAGNOSIS: Right lateral leg hematoma. PROCEDURE: Incision and drainage, right lateral leg hematoma. ANESTHESIA: Regional with conscious sedation. ESTIMATED BLOOD LOSS: Minimal from the procedure but it was quite a large hematoma. DRAINS: One vac sponge was applied. TOURNIQUET: None. DISPOSITION: Postanesthesia care unit. INDICATIONS: Mr. Stevenson is a very pleasant 73-year-old male who last Tuesday was walking in his barn and fell through the floor. He had a contusion to the right leg. He initially presented to the emergency department and was evaluated there. X-rays revealed no evidence of fracture. He was then discharged home from the emergency department. He then followed up in my office this past Tuesday. He did have a fairly significant hematoma on the right lateral leg. There is no neurovascular compromise. Normal neurovascular exam. I did obtain an MRI to further define the hematoma. He then returned to the office on , yesterday and he started to develop a little bit of erythema around the hematoma. He does have some fairly significant medical comorbidities. Decision was made after talking to Mr. Stevenson and his to proceed with an incision and drainage of the hematoma. Again, he did not have any neurovascular compromise. He was then admitted to the hospital from my office yesterday. He is a very familiar patient to Dr. Ramos and also the medical staff here. He was then cleared for surgery. The risks of procedure were discussed with Mr. Stevenson and his in detail. These risks include, but are not limited to risk of infection, nerve damage, bleeding, pain, and a small risk of deep vein thrombosis which could lead to fatal pulmonary embolism. Further risks specific to this procedure for Mr. Stevenson include possibility for skin issues. He has had some issues with skin healing in the past. Infection is certainly a risk as well. All of his questions with regards to the risks were answered to his satisfaction. Appropriate informed consent was obtained. DESCRIPTION OF PROCEDURE: Patient identified in preop holding area. Surgical site was marked by both the patient and myself. He was then transferred to the operative suite. He was placed supine on the operative table. He did get a regional block in preop per the anesthesia department. Conscious sedation was then administered and dosed per the anesthesia without apparent complication. The right lower extremity was then prepped and draped in usual sterile fashion. Standard surgical pause was undertaken to ensure that we were operating on the correct site and that appropriate preoperative antibiotics were given. All staff in the room were in agreement. We proceeded. He did have an eschar, an area approximately 2-3 cm of eschar at the distal aspect distal 3rd of the hematoma. This was on the lateral lower leg. We then utilized this area to gain access to the hematoma. I utilized a 10 blade scalpel. The eschar was excised. The hematoma was then evacuated through that small, approximately 3 cm incision. I then utilized a Pulsavac to thoroughly irrigate the hematoma cavity. The hematoma was entirely subcutaneous. I irrigated the cavity with 6 L of sterile saline solution via pulse lavage. The last 3 L of sterile saline solution had Ancef added. I then placed a VAC dressing sponge as he has had some difficulty healing wounds in the past. This was placed without difficulty and hooked up to low continuous suction. All sponge and needle counts were deemed correct prior to closure. The patient tolerated the procedure without apparent complication. He was transferred recovery room in stable condition. MMODL / IJN: [id number] /
[2018-10-07 07:54] LABS: Basophils % (A) 0 %; Eosinophils # (A) 0.3 k/uL (0-0.7); Eosinophils % (A) 3 %; HCT 33.7 % (39.0-53.0); HGB 10.8 gm/dL (13.0-17.5); Lymphocytes % (A) 10 %; MCH 30.3 pg (25.0-35.0); MCV 94.7 fL (80.0-100.0); Mean Platelet Volume 7.1; Monocytes # (A) 0.9 k/uL (0-1.0); Monocytes % (A) 8 %; Neutrophils % (A) 77 %; Platelet Count 287 k/uL (150-450); RBC 3.56 m/uL (4.30-5.90); RDW 14.1 % (11.5-15.5); WBC 10.4 k/uL (3.8-10.6)
[2018-10-07 08:04] LABS: Calcium 7.9 mg/dL (8.4-10.2); Potassium 4.2 mmol/L (3.5-5.1)
[2018-10-07 08:17] LABS: INR 1.2 (<1.2); Prothrombin Time 12.8 sec (9.0-12.0)
[2018-10-07] MEDS: FERROUS SULFATE 325 MG TAB PO SCH (08:37)
[2018-10-07] MEDS: METHYLPHENIDATE HCL 10 MG TAB PO SCH ×2 (08:37→14:27)
[2018-10-07] MEDS: VENLAFAXINE HCL ER 75 MG CAP PO SCH (08:37)
[2018-10-07] MEDS: DIGOXIN 125 MCG TAB PO SCH (08:37)
[2018-10-07] MEDS: SPIRONOLACTONE 25 MG TAB PO SCH (08:37)
[2018-10-07] MEDS: METOPROLOL TARTRATE 25 MG TAB PO SCH ×2 (08:38→14:27)
[2018-10-07] MEDS: DONEPEZIL 5 MG TAB PO SCH (08:38)
[2018-10-07] MEDS: FUROSEMIDE 40 MG TAB PO SCH (08:38)
--- NOTE | 2018-10-07 10:50 | P.PN ---
Subjective Progress Note Date: 10/07/18 Principal diagnosis: S/P I and D hematoma right leg Patient is seen at bedside this morning. He is postop day #1 from I&D of hematoma of the right lower leg. He has pain at the surgical site as expected but denies any new complaints. He denies numbness, tingling or calf pain. Review of systems is negative for fever, chills, chest pain, shortness of breath or other Objective - Vital Signs Vital signs: Vital Signs Temp 98.9 F 10/07/18 07:00 Pulse 88 10/07/18 07:00 Resp 20 10/07/18 07:00 BP 114/69 10/07/18 07:00 Pulse Ox 94 L 10/07/18 01:04 Intake & Output 10/06/18 10/07/18 10/07/18 18:59 06:59 18:59 Intake Total 3349 Output Total 500 100 Balance 2849 -100 Intake: IV 3349 Output: Urine 400 100 Estimated Blood Loss 100 Other: # Bowel Movements 2 - Exam Inspection reveals a benign surgical wound. There is no active bleeding or drainage through compressive bandage. Neurovascular status is intact throughout the lower extremity with motor and sensation fully intact. Calf is soft and non tender. 2+ dorsalis pedis pulse and less than 2 second cap refill is present. - Constitutional General appearance: Present: no acute distress - Labs CBC & Chem 7: 10/07/18 07:28 10/07/18 07:28 Labs: Abnormal Lab Results - Last 24 Hours (Table) 10/06/18 10/07/18 10/07/18 Range/Units 19:58 07:28 07:28 WBC 15.4 H (3.8-10.6) k/uL RBC 4.10 L 3.56 L (4.30-5.90) m/uL Hgb 12.2 L 10.8 L (13.0-17.5) gm/dL Hct 33.7 L (39.0-53.0) % Neutrophils # 8.0 H (1.3-7.7) k/uL PT 12.8 H (9.0-12.0) sec INR 1.2 H (<1.2) Sodium (137-145) mmol/L BUN (9-20) mg/dL Glucose (74-99) mg/dL Calcium (8.4-10.2) mg/dL 10/07/18 Range/Units 07:28 WBC (3.8-10.6) k/uL RBC (4.30-5.90) m/uL Hgb (13.0-17.5) gm/dL Hct (39.0-53.0) % Neutrophils # (1.3-7.7) k/uL PT (9.0-12.0) sec INR (<1.2) Sodium 136 L (137-145) mmol/L BUN 25 H (9-20) mg/dL Glucose 118 H (74-99) mg/dL Calcium 7.9 L (8.4-10.2) mg/dL Microbiology - Last 24 Hours (Table) 10/06/18 12:30 Gram Stain - Preliminary Leg - Right Wound Culture - Preliminary 10/06/18 12:30 Gram Stain - Preliminary Leg - Right Wound Culture - Preliminary 10/06/18 12:30 Anaerobic Culture - Preliminary Leg - Right 10/06/18 12:30 Anaerobic Culture - Preliminary Leg - Right Assessment and Plan (1) Hematoma of right lower extremity Narrative/Plan: He will continue with routine postop orthopedic protocol including pain m anagement, wound care, PT, DVT prophylaxis and medical management. Intraop cultures pending. Continue antibiotic therapy per infectious disease. Further recommendations pending per clinical course. Current Visit: No Status: Acute Priority: Medium Code(s): S80.11XA - CONTUSION OF RIGHT LOWER LEG, INITIAL ENCOUNTER SNOMED Code(s): 713083184 Time with Patient: Less than 30
--- NOTE | 2018-10-07 12:31 | P.PN ---
Subjective This is a pleasant 73-year-old male with history of aortic valve replacement and mitral valve repair, nonischemic cardiomyopathy hypertension and dyslipidemia. He underwent incision and drainage and insertion of wound VAC to the right leg secondary to significant hematoma. He is seen and examined resting comfortably in bed in no acute distress. He denies symptoms of chest discomfort, shortness of breath, dizziness or palpitations. Blood pressure 114/69 heart rate 88 afebrile maintaining oxygen saturation on room air. Laboratory data reviewed, WBC 10.4, hemoglobin 10.8, platelets 287, INR 1.2, sodium 136, potassium 4.2, creatinine 1.11. Currently maintained on atorvastatin 10 mg daily, digoxin 125 g daily, Lasix 40 mg daily, metoprolol 25 mg twice a day, Aldactone 25 mg daily. GENERAL: Well-appearing, well-nourished and in no acute distress. NECK: Supple without JVD or thyromegaly. LUNGS: Breath sounds clear to auscultation bilaterally. Respiration equal and unlabored. No wheezes, rales or rhonchi. HEART: Regular rate and rhythm with systolic ejection murmur at the left sternal border, no rubs or gallops. S1 and S2 heard. EXTREMITIES: Dressing noted on the right lower extremity with Kieran wrap in place. No clubbing or cyanosis. Peripheral pulses intact. ASSESSMENT Hematoma of right lower extremity s/p incision, drainage and wound vac placement History of chronic systolic and diastolic heart failure, currently euvolemic Hypertension Dyslipidemia Valvular heart disease status post aortic valve replacement and mitral valve repair Paroxysmal atrial fibrillation PLAN Continue current medical regimen. We will continue to follow as needed, please call with further questions or concerns. Follow-up with Dr. Guadarrama upon discharge. Nurse Practitioner note has been reviewed, I agree with a documented findings and plan of care. Patient was seen and examined. Objective - Vital Signs Vital signs: Vital Signs Temp 98.9 F 10/07/18 07:00 Pulse 88 10/07/18 07:00 Resp 20 10/07/18 07:00 BP 114/69 10/07/18 07:00 Pulse Ox 94 L 10/07/18 01:04 Intake & Output 10/06/18 10/07/18 10/07/18 18:59 06:59 18:59 Intake Total 3349 Output Total 500 100 Balance 2849 -100 Intake: IV 3349 Output: Urine 400 100 Estimated Blood Loss 100 Other: # Bowel Movements 2 - Labs CBC & Chem 7: 10/07/18 07:28 10/07/18 07:28 Labs: Abnormal Lab Results - Last 24 Hours (Table) 10/06/18 10/07/18 10/07/18 Range/Units 19:58 07:28 07:28 WBC 15.4 H (3.8-10.6) k/uL RBC 4.10 L 3.56 L (4.30-5.90) m/uL Hgb 12.2 L 10.8 L (13.0-17.5) gm/dL Hct 33.7 L (39.0-53.0) % Neutrophils # 8.0 H (1.3-7.7) k/uL PT 12.8 H (9.0-12.0) sec INR 1.2 H (<1.2) Sodium (137-145) mmol/L BUN (9-20) mg/dL Glucose (74-99) mg/dL Calcium (8.4-10.2) mg/dL 10/07/18 Range/Units 07:28 WBC (3.8-10.6) k/uL RBC (4.30-5.90) m/uL Hgb (13.0-17.5) gm/dL Hct (39.0-53.0) % Neutrophils # (1.3-7.7) k/uL PT (9.0-12.0) sec INR (<1.2) Sodium 136 L (137-145) mmol/L BUN 25 H (9-20) mg/dL Glucose 118 H (74-99) mg/dL Calcium 7.9 L (8.4-10.2) mg/dL Microbiology - Last 24 Hours (Table) 10/06/18 12:30 Gram Stain - Preliminary Leg - Right Wound Culture - Preliminary 10/06/18 12:30 Gram Stain - Preliminary Leg - Right Wound Culture - Preliminary 10/06/18 12:30 Anaerobic Culture - Preliminary Leg - Right 10/06/18 12:30 Anaerobic Culture - Preliminary Leg - Right
--- NOTE | 2018-10-07 17:04 | P.PN ---
Subjective Progress Note Date: 10/07/18 Principal diagnosis: follow up for medical management of afib, hypertension , anemia. patient admitted for I and D and wound vac insertion due to right leg hematoma/cellulitis patient seen and examined, patient had I&D yesterday. Currently denies any new symptoms denies any chest pain trouble breathing denies any coughing denies any fevers or chills. He reports that pain is well tolerated. His tolerating by mouth intake. He is still off the wound VAC since yesterday Objective - Vital Signs Vital signs: Vital Signs Temp 98.4 F 10/07/18 01:04 Pulse 86 10/07/18 03:12 Resp 16 10/07/18 01:04 BP 97/61 10/07/18 01:04 Pulse Ox 94 L 10/07/18 01:04 Intake & Output 10/06/18 10/07/18 10/07/18 18:59 06:59 18:59 Intake Total 3349 Output Total 500 100 Balance 2849 -100 Intake: IV 3349 Output: Urine 400 100 Estimated Blood Loss 100 Other: # Bowel Movements 2 - Exam General: no acute distress, pleasant Cardiovascular: out pouching over sternal area skin and muscle flap, S1S2 reg, systolic murmur, no edema, capillary refill immediate Lungs: CTA bilateral, no rhonchi, no rales , no accessory muscle use Abdominal: soft, nontender to palpation, no guarding, no appreciable organomegaly, normal bowel sounds Ext: Right leg and surgical dressing tender to palpation over surgical site no evidence of active bleeding since repacking. Wound VAC has been removed Psych: Alert, oriented, appropriate affect - Labs CBC & Chem 7: 10/07/18 07:28 10/07/18 07:28 Labs: Abnormal Lab Results - Last 24 Hours (Table) 10/06/18 10/07/18 10/07/18 Range/Units 19:58 07:28 07:28 WBC 15.4 H (3.8-10.6) k/uL RBC 4.10 L 3.56 L (4.30-5.90) m/uL Hgb 12.2 L 10.8 L (13.0-17.5) gm/dL Hct 33.7 L (39.0-53.0) % Neutrophils # 8.0 H (1.3-7.7) k/uL PT 12.8 H (9.0-12.0) sec INR 1.2 H (<1.2) Sodium (137-145) mmol/L BUN (9-20) mg/dL Glucose (74-99) mg/dL Calcium (8.4-10.2) mg/dL 10/07/18 Range/Units 07:28 WBC (3.8-10.6) k/uL RBC (4.30-5.90) m/uL Hgb (13.0-17.5) gm/dL Hct (39.0-53.0) % Neutrophils # (1.3-7.7) k/uL PT (9.0-12.0) sec INR (<1.2) Sodium 136 L (137-145) mmol/L BUN 25 H (9-20) mg/dL Glucose 118 H (74-99) mg/dL Calcium 7.9 L (8.4-10.2) mg/dL Microbiology - Last 24 Hours (Table) 10/06/18 12:30 Gram Stain - Preliminary Leg - Right Wound Culture - Preliminary 10/06/18 12:30 Gram Stain - Preliminary Leg - Right Wound Culture - Preliminary 10/06/18 12:30 Anaerobic Culture - Preliminary Leg - Right 10/06/18 12:30 Anaerobic Culture - Preliminary Leg - Right Assessment and Plan Assessment: Patient is a 73-year-old male past medical history of atrial fibrillation on chronic Coumadin therapy, congestive heart failure with unknown ejection fraction, arthritis, hypertension, dyslipidemia, and prior aortic valve replacement with mitral valve repair 2016, 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 he presented as a direct admit from Dr. Mckeon's office secondary to hematoma over his left leg after sustaining a fall and injury, no acute fractures. admitted for I and D and wound vac insertion per ortho surgery. Wound VAC was blocked by the bleeding which has been removed wound was repacked and wrapped with Kieran wrapping. Per ID recommendations patient to be on Ancef, (currently patient on vancomycin per orthopedic ) wound VAC will be probably reapplied on Tuesday Plan: Right lower extremity hematoma and cellulitis post I&D day 1 -ID following, currently patient is on vancomycin awaiting final cultures intraoperatively -Status post IND tolerated procedure well. Immediate postoperative course was complicated by blood clogging the wound VAC which has then been removed. Wound was repacked and wrapped with Kieran wrapping - Pain control Elevation of the limb A fib, chronic coumadin use - hold coumadin - Continue digoxin Cardiac monitoring Cardiology following Compensated CHF, Unknown EF - No chronically on BB or ACEI, continue aldactone and lasix Short term memory loss - safe and supportive environment HLD - continue home statin HTN, controlled - follow BP - Continue home aldactone and lasix Chronic anemia, with postoperative worsening of anemia as expected - follow CBC - continue iron supplementation DVT prophylaxis: heparin sc tid labs reviewed and stable
[2018-10-07] MEDS: MELATONIN 5 MG TABLET PO SCH (21:28)
[2018-10-07] MEDS: HEPARIN SODIUM,PORCINE 5,000 UNIT/ML 1 ML VIAL SQ SCH ×2 (21:28→23:39)
[2018-10-07] MEDS: SENNOSIDES-DOCUSATE SODIUM 1 EACH TAB PO SCH (21:28)
[2018-10-07] MEDS: ATORVASTATIN 10 MG TAB PO SCH (21:28)
[2018-10-08] MEDS: LEVOTHYROXINE 75 MCG TAB PO SCH (05:25)
[2018-10-08] MEDS: LACTATED RINGERS 1,000 ML IV SCH ×2 (05:29→19:54)
[2018-10-08] MEDS: SPIRONOLACTONE 25 MG TAB PO SCH (07:31)
[2018-10-08] MEDS: FERROUS SULFATE 325 MG TAB PO SCH (07:31)
[2018-10-08] MEDS: FUROSEMIDE 40 MG TAB PO SCH (07:31)
[2018-10-08] MEDS: METOPROLOL TARTRATE 25 MG TAB PO SCH ×2 (07:31→13:08)
[2018-10-08] MEDS: DIGOXIN 125 MCG TAB PO SCH (07:32)
[2018-10-08] MEDS: METHYLPHENIDATE HCL 10 MG TAB PO SCH ×2 (07:32→13:08)
[2018-10-08] MEDS: DONEPEZIL 5 MG TAB PO SCH (07:32)
[2018-10-08] MEDS: VENLAFAXINE HCL ER 75 MG CAP PO SCH (07:32)
[2018-10-08] MEDS: HEPARIN SODIUM,PORCINE 5,000 UNIT/ML 1 ML VIAL SQ SCH ×2 (07:36→16:03)
[2018-10-08 07:54] LABS: Basophils % (A) 0 %; Eosinophils # (A) 0.4 k/uL (0-0.7); Eosinophils % (A) 5 %; HCT 32.1 % (39.0-53.0); HGB 10.4 gm/dL (13.0-17.5); Lymphocytes # (A) 0.7 k/uL (1.0-4.8); Lymphocytes % (A) 8 %; MCHC 32.3 g/dL (31.0-37.0); Mean Platelet Volume 6.8; Monocytes # (A) 0.6 k/uL (0-1.0); Monocytes % (A) 6 %; Neutrophils # (A) 7.1 k/uL (1.3-7.7); Neutrophils % (A) 79 %; Platelet Count 253 k/uL (150-450); RBC 3.46 m/uL (4.30-5.90); RDW 14.1 % (11.5-15.5)
[2018-10-08 07:59] LABS: Calcium 7.8 mg/dL (8.4-10.2)
[2018-10-08 08:07] LABS: INR 1.1 (<1.2); Prothrombin Time 11.6 sec (9.0-12.0)
--- NOTE | 2018-10-08 10:41 | P.PN ---
Subjective Progress Note Date: 10/08/18 Principal diagnosis: follow up for medical management of afib, hypertension , anemia. patient admitted for I and D and wound vac insertion due to right leg hematoma/cellulitis patient seen and examined, patient is doing well denies any chest pain or trouble breathing reports that pain in his right leg is improving. Tolerating by mouth intake. Passing bowel movements. Denies any nausea vomiting Objective - Vital Signs Vital signs: Vital Signs Temp 98.1 F 10/08/18 07:00 Pulse 80 10/08/18 07:40 Resp 16 10/08/18 07:00 BP 97/65 10/08/18 07:00 Pulse Ox 96 10/08/18 07:00 Intake & Output 10/07/18 10/08/18 10/08/18 18:59 06:59 18:59 Intake Total 1080 1220 Output Total 900 Balance 180 1220 Intake: Intake, IV Titration 600 1220 Amount Lactated Ringers 1,000 ml 600 970 @ 75 mls/hr IV .[id number] [facility] Rx#:[id number] Vancomycin 1,500 mg In 250 Sodium Chloride 0.9% 250 ml @ 125 mls/hr IVPB Q16H [facility] Rx#:[id number] Oral 480 Output: Urine 900 Other: Voiding Method Urinal # Voids 2 1 # Bowel Movements 2 - Exam General: no acute distress, pleasant, conversant and cooperative Cardiovascular: Skin flap over the sternal area , S1S2 reg, systolic murmur, no edema, capillary refill immediate Lungs: CTA bilateral, no rhonchi, no rales , no accessory muscle use Abdominal: soft, nontender to palpation, no guarding, no appreciable organomegaly, normal bowel sounds Ext: Right leg surgical dressing dry clean, slight tenderness to palpation over surgical site no evidence of active bleeding since repacking. Wound VAC has not been reapplied yet Psych: Alert, oriented, appropriate affect - Labs CBC & Chem 7: 10/08/18 07:03 10/08/18 07:03 Labs: Abnormal Lab Results - Last 24 Hours (Table) 10/08/18 10/08/18 Range/Units 07:03 07:03 RBC 3.46 L (4.30-5.90) m/uL Hgb 10.4 L (13.0-17.5) gm/dL Hct 32.1 L (39.0-53.0) % Lymphocytes # 0.7 L (1.0-4.8) k/uL BUN 26 H (9-20) mg/dL Glucose 109 H (74-99) mg/dL Calcium 7.8 L (8.4-10.2) mg/dL Assessment and Plan Assessment: Patient is a 73-year-old male past medical history of atrial fibrillation on chronic Coumadin therapy, congestive heart failure with unknown ejection fraction, arthritis, hypertension, dyslipidemia, and prior aortic valve replacement with mitral valve repair 2016, 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 he presented as a direct admit from Dr. Mckeon's office secondary to hematoma over his left leg after sustaining a fall and injury, no acute fractures. admitted for I and D and wound vac insertion per ortho surgery. Wound VAC was blocked by the bleeding which has been removed wound was repacked and wrapped with Kieran wrapping. ID following, patient currently on vancomycin. Intraoperative Cultures negative to date Plan: Right lower extremity hematoma and cellulitis post I&D day 2 -ID following, currently patient is on vancomycin awaiting final cultures in traoperatively -Status post I&D tolerated procedure well. Immediate postoperative course was complicated by blood clogging the wound VAC which has then been removed. Wound was repacked and wrapped with Kieran wrapping - Pain control Elevation of the limb A fib, chronic coumadin use - hold coumadin - Continue digoxin Cardiac monitoring Cardiology following Compensated CHF, Unknown EF - No chronically on BB or ACEI, continue aldactone and lasix Short term memory loss - safe and supportive environment HLD - continue home statin HTN, controlled - follow BP - Continue home aldactone and lasix Chronic anemia, with postoperative worsening of anemia as expected - follow CBC - continue iron supplementation DVT prophylaxis: heparin sc tid labs reviewed and stable
--- NOTE | 2018-10-08 10:43 | P.PN ---
Subjective Progress Note Date: 10/08/18 Principal diagnosis: S/P I and D hematoma right leg Patient is seen at bedside this morning. He is postop day #2 from I&D of hematoma of the right lower leg. He has pain at the surgical site as expected which is improved versus preop. He denies any new complaints. He denies nu mbness, tingling or calf pain. Review of systems is negative for fever, chills, chest pain, shortness of breath or other Objective - Vital Signs Vital signs: Vital Signs Temp 98.1 F 10/08/18 07:00 Pulse 80 10/08/18 07:40 Resp 16 10/08/18 07:00 BP 97/65 10/08/18 07:00 Pulse Ox 96 10/08/18 07:00 Intake & Output 10/07/18 10/08/18 10/08/18 18:59 06:59 18:59 Intake Total 1080 1220 Output Total 900 Balance 180 1220 Intake: Intake, IV Titration 600 1220 Amount Lactated Ringers 1,000 ml 600 970 @ 75 mls/hr IV .[id number] [facility] Rx#:[id number] Vancomycin 1,500 mg In 250 Sodium Chloride 0.9% 250 ml @ 125 mls/hr IVPB Q16H [facility] Rx#:[id number] Oral 480 Output: Urine 900 Other: Voiding Method Urinal # Voids 2 1 # Bowel Movements 2 - Exam Inspection reveals a benign surgical wound. There is no active bleeding or drainage through compressive bandage. There is improved erythema at the lower leg. Neurovascular status is intact throughout the lower extremity with motor and sensation fully intact. Calf is soft and nontender. 2+ dorsalis pedis pulse and less than 2 second cap refill is present. - Constitutional General appearance: Present: no acute distress - Labs CBC & Chem 7: 10/08/18 07:03 10/08/18 07:03 Labs: Abnormal Lab Results - Last 24 Hours (Table) 10/08/18 10/08/18 Range/Units 07:03 07:03 RBC 3.46 L (4.30-5.90) m/uL Hgb 10.4 L (13.0-17.5) gm/dL Hct 32.1 L (39.0-53.0) % Lymphocytes # 0.7 L (1.0-4.8) k/uL BUN 26 H (9-20) mg/dL Glucose 109 H (74-99) mg/dL Calcium 7.8 L (8.4-10.2) mg/dL Assessment and Plan (1) Hematoma of right lower extremity Narrative/Plan: He will continue with routine postop orthopedic protocol including pain management, wound care, PT, DVT prophylaxis and medical management. Intraop cultures pending and no growth thus far. Continue antibiotic therapy per infectious disease. Will await Dr Ramos recommendations regarding replacing wound vac, wound care and discharge recommendations regarding his wound. Current Visit: No Status: Acute Priority: Medium Code(s): S80.11XA - CONTUSION OF RIGHT LOWER LEG, INITIAL ENCOUNTER SNOMED Code(s): 898146470 Time with Patient: Less than 30
[2018-10-08] MEDS: VANCOMYCIN 1,500 MG in SODIUM CHLORIDE 0.9% 250 ML IVPB SCH (13:08)
[2018-10-08] MEDS: ATORVASTATIN 10 MG TAB PO SCH (21:19)
[2018-10-08] MEDS: SENNOSIDES-DOCUSATE SODIUM 1 EACH TAB PO SCH (21:19)
[2018-10-08] MEDS: MELATONIN 5 MG TABLET PO SCH (21:19)
[2018-10-08] MEDS: HYDROcodone/APAP 5-325MG 1 EACH TAB PO PRN (21:23)
[2018-10-09] MEDS: HEPARIN SODIUM,PORCINE 5,000 UNIT/ML 1 ML VIAL SQ SCH ×4 (01:12→23:14)
[2018-10-09] MEDS ORDERED: VANCOMYCIN TROUGH DUE 1 EACH MISC MISCELLANE ONE (05:00)
[2018-10-09] MEDS: LEVOTHYROXINE 75 MCG TAB PO SCH (06:21)
[2018-10-09 06:38] LABS: Basophils % (A) 1 %; Eosinophils # (A) 0.5 k/uL (0-0.7); Eosinophils % (A) 5 %; HCT 30.8 % (39.0-53.0); HGB 9.9 gm/dL (13.0-17.5); Lymphocytes # (A) 0.7 k/uL (1.0-4.8); Lymphocytes % (A) 8 %; MCH 29.8 pg (25.0-35.0); MCHC 32.1 g/dL (31.0-37.0); MCV 92.8 fL (80.0-100.0); Mean Platelet Volume 7.2; Monocytes # (A) 0.5 k/uL (0-1.0); Monocytes % (A) 6 %; Neutrophils # (A) 6.9 k/uL (1.3-7.7); Neutrophils % (A) 79 %; Platelet Count 282 k/uL (150-450); RBC 3.31 m/uL (4.30-5.90); WBC 8.7 k/uL (3.8-10.6)
[2018-10-09 06:52] LABS: Calcium 7.8 mg/dL (8.4-10.2); INR 1.1 (<1.2); Potassium 4.2 mmol/L (3.5-5.1); Prothrombin Time 11.3 sec (9.0-12.0)
[2018-10-09] MEDS: METHYLPHENIDATE HCL 10 MG TAB PO SCH ×2 (07:51→14:00)
[2018-10-09] MEDS: DONEPEZIL 5 MG TAB PO SCH (07:51)
[2018-10-09] MEDS: METOPROLOL TARTRATE 25 MG TAB PO SCH ×2 (07:51→14:00)
[2018-10-09] MEDS: DIGOXIN 125 MCG TAB PO SCH (07:51)
[2018-10-09] MEDS: FERROUS SULFATE 325 MG TAB PO SCH (07:51)
[2018-10-09] MEDS: FUROSEMIDE 40 MG TAB PO SCH (07:51)
[2018-10-09] MEDS: SPIRONOLACTONE 25 MG TAB PO SCH (07:51)
[2018-10-09] MEDS: VENLAFAXINE HCL ER 75 MG CAP PO SCH (07:51)
[2018-10-09] MEDS: LACTATED RINGERS 1,000 ML IV SCH (07:52)
--- NOTE | 2018-10-09 10:19 | P.PN ---
Subjective Progress Note Date: 10/09/18 Principal diagnosis: S/P I and D hematoma right leg Patient is seen at bedside this morning. He is postop day #3 from I&D of hematoma of the right lower leg. His pain at the right lower leg and surgical site continues to be improved versus preop. He denies any new complaints. He denies numbness, tingling or calf pain. Review of systems is negative for fever, chills, chest pain, shortness of breath or other Objective - Vital Signs Vital signs: Vital Signs Temp 98.4 F 10/09/18 07:38 Pulse 88 10/09/18 07:50 Resp 18 10/09/18 07:54 BP 108/72 10/09/18 07:50 Pulse Ox 95 10/09/18 07:38 Intake & Output 10/08/18 10/09/18 10/09/18 18:59 06:59 18:59 Intake Total 1500 Balance 1500 Weight 103 kg Intake: Oral 1500 Other: Voiding Method Toilet Urinal # Voids 2 3 - Exam Inspection reveals a benign surgical wound. There is no active bleeding or drainage through compressive bandage. The bandage is removed and changed utilizing sterile technique and sterile supplies. There is improved erythema at the lower leg. No purulent drainage from wound nor active bleeding. Neurovascular status is intact throughout the lower extremity with motor and sensation fully intact. Calf is soft and nontender. 2+ dorsalis pedis pulse and less than 2 second cap refill is present. - Constitutional General appearance: Present: no acute distress - Labs CBC & Chem 7: 10/09/18 05:22 10/09/18 05:22 Labs: Abnormal Lab Results - Last 24 Hours (Table) 10/09/18 10/09/18 Range/Units 05:22 05:22 RBC 3.31 L (4.30-5.90) m/uL Hgb 9.9 L (13.0-17.5) gm/dL Hct 30.8 L (39.0-53.0) % Lymphocytes # 0.7 L (1.0-4.8) k/uL Sodium 136 L (137-145) mmol/L BUN 28 H (9-20) mg/dL Glucose 110 H (74-99) mg/dL Calcium 7.8 L (8.4-10.2) mg/dL Microbiology - Last 24 Hours (Table) 10/06/18 12:30 Gram Stain - Final Leg - Right Wound Culture - Final 10/06/18 12:30 Gram Stain - Final Leg - Right Wound Culture - Final Assessment and Plan (1) Hematoma of right lower extremity Narrative/Plan: He will continue with routine postop orthopedic protocol including pain management, wound care, PT, DVT prophylaxis and medical management. Intraop cultures are showing no signs of active infection. Continue antibiotic therapy per infectious disease. Will continue with compressive bandage and dressing changes. Appreciate Dr Ramos recommendations regarding replacing wound vac, wound care and discharge recommendations regarding his wound. Current Visit: No Status: Acute Priority: Medium Code(s): S80.11XA - CONTUSION OF RIGHT LOWER LEG, INITIAL ENCOUNTER SNOMED Code(s): 581468947 Time with Patient: Less than 30
[2018-10-09] MEDS: VANCOMYCIN 1,500 MG in SODIUM CHLORIDE 0.9% 250 ML IVPB SCH ×2 (11:08→22:03)
[2018-10-09] MEDS ORDERED: SODIUM CHLORIDE 0.9% 500 ML 500 ML IV ONE (11:23)
--- NOTE | 2018-10-09 11:23 | P.PN ---
Subjective Progress Note Date: 10/09/18 Principal diagnosis: follow up for medical management of afib, hypertension , anemia. patient admitted for I and D and wound vac insertion due to right leg hematoma/cellulitis patient seen and examined, patient is doing well denies any chest pain or trouble breathing , no fevers or chills. surgical wound is not draining , tolerating PO intake Denies any nausea vomiting Objective - Vital Signs Vital signs: Vital Signs Temp 98.4 F 10/09/18 07:38 Pulse 88 10/09/18 07:50 Resp 18 10/09/18 07:54 BP 108/72 10/09/18 07:50 Pulse Ox 95 10/09/18 07:38 Intake & Output 10/08/18 10/09/18 10/09/18 18:59 06:59 18:59 Intake Total 1500 Balance 1500 Weight 103 kg Intake: Oral 1500 Other: Voiding Method Toilet Urinal # Voids 2 3 - Exam General: no acute distress, pleasant, conversant and cooperative Cardiovascular: Skin flap over the sternal area , S1 S2 reg, systolic murmur, no edema, capillary refill immediate Lungs: CTA bilateral, no rhonchi, no rales , no accessory muscle use Abdominal: soft, nontender to palpation, no guarding, normal bowel sounds Ext: Right leg surgical dressing dry clean, slight tenderness to palpation over surgical site no evidence of active bleeding or drainage. Wound VAC has not been reapplied yet Psych: Alert, oriented, appropriate affect - Labs CBC & Chem 7: 10/09/18 05:22 10/09/18 05:22 Labs: Abnormal Lab Results - Last 24 Hours (Table) 10/09/18 10/09/18 Range/Units 05:22 05:22 RBC 3.31 L (4.30-5.90) m/uL Hgb 9.9 L (13.0-17.5) gm/dL Hct 30.8 L (39.0-53.0) % Lymphocytes # 0.7 L (1.0-4.8) k/uL Sodium 136 L (137-145) mmol/L BUN 28 H (9-20) mg/dL Glucose 110 H (74-99) mg/dL Calcium 7.8 L (8.4-10.2) mg/dL Microbiology - Last 24 Hours (Table) 10/06/18 12:30 Gram Stain - Final Leg - Right Wound Culture - Final 10/06/18 12:30 Gram Stain - Final Leg - Right Wound Culture - Final Assessment and Plan Assessment: Patient is a 73-year-old male past medical history of atrial fibrillation on chronic Coumadin therapy, congestive heart failure with unknown ejection fraction, arthritis, hypertension, dyslipidemia, and prior aortic valve replacement with mitral valve repair 2016, 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 he presented as a direct admit from Dr. Mckeon's office secondary to hematoma over his left leg after sustaining a fall and injury, no acute fractures. admitted for I and D and wound vac insertion per ortho surgery. Wound VAC was blocked by the bleeding which has been removed wound was repacked and wrapped with Kieran wrapping. ID following, patient currently on vancomycin. Intraoperative Cultures negative to date 10/09 continue supportive care, per orthopedic. await ID decision regarding reapplying the wound vac. from medical stand point patient showing early signs of possible dehydration (dark urine, lower blood pressure and slight tachy cardia) will give patient 500cc bolus of IVF and encourage PO intake , discontinue lasix, but continue with aldactone (history of CHF) Plan: Right lower extremity hematoma and cellulitis post I&D day 3 -ID following, currently patient is on vancomycin , follow up cultures -Status post I&D tolerated procedure well. Immediate postoperative course was complicated by blood clogging the wound VAC which has then been removed. Wound was repacked and wrapped with Kieran wrapping - Pain control Elevation of the limb A fib, chronic coumadin use - hold coumadin - Continue digoxin Cardiac monitoring Cardiology following Compensated CHF, Unknown EF - No chronically on BB or ACEI, continue aldactone and lasix Short term memory loss - safe and supportive environment HLD - continue home statin HTN, controlled - follow BP, currently borderline low normal - Continue home aldactone and discontinue lasix gentle IVF bolus Chronic anemia, with postoperative worsening of anemia as expected , now stable overall - follow CBC - continue iron supplementation DVT prophylaxis: heparin sc tid labs reviewed , early signs of dehydration , DC lasix , give 500 cc NS bolus , with history of CHF
[2018-10-09] MEDS: SENNOSIDES-DOCUSATE SODIUM 1 EACH TAB PO SCH (22:02)
[2018-10-09] MEDS: MELATONIN 5 MG TABLET PO SCH (22:02)
[2018-10-09] MEDS: ATORVASTATIN 10 MG TAB PO SCH (22:03)
--- NOTE | 2018-10-09 23:36 | P.PN ---
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 Has been doing modestly well per the , he was in the barn when the floor gave way and he fell into the subflooring causing the significant inj ury and hematoma to the right leg. He has been seen by orthopedics and admitted for the surgical incision and drainage that is planned. At this time the patient has pain and is somewhat miserable because of the problem awaiting surgical intervention. He is not having high-grade fevers or chills but due to the injury and need for wound care was topically the consult has been requested as well as antibiotic therapy. Patient had the I&D today of the right lateral leg. vac was applied and now has blockage and bleeding. Pain at site is better but still at least a 5 10/09/2018 patient is doing relatively well after his incision and drainage. Bleeding is under better control with current packing. Plans being made for his discharge to the home setting. Objective - Vital Signs Vital signs: Vital Signs Temp 98.3 F 10/09/18 18:56 Pulse 85 10/09/18 18:56 Resp 16 10/09/18 18:56 BP 94/62 10/09/18 18:56 Pulse Ox 96 10/09/18 18:56 Intake & Output 10/09/18 10/09/18 10/10/18 06:59 18:59 06:59 Intake Total 1500 500 Balance 1500 500 Weight 103 kg Intake: Intake, IV Titration 500 Amount Sodium Chloride 0.9% 500 500 ml 500 ml @ 999 mls/hr IV .Q31M ONE Rx#:[id number] Oral 1500 Other: Voiding Method Toilet Urinal # Voids 3 3 - Exam Pleasant 73-year-old male in some discomfort because of the trauma to the right leg. HEENT: Anicteric conjunctiva are pink and moist nasal mucosa grossly intact without significant lesions, there is no thrush. Neck: The neck is supple without significant lymphadenopathy or thyromegaly. Lungs: Good bilateral air entry without significant crackles or wheezing. There is no significant bronchial sounds. There is no egophony or dullness. Heart: Regular rate and rhythm with an audible S1-S2, no S3 no S4. There is no significant murmur click or rub, PMI was nondisplaced. Abdomen: Positive bowel sounds soft and nontender without palpable masses or organomegaly. There was no guarding or rebound. Extremities: Upper shoulders show evidence of areas of ecchymosis from his activity in his thin skin and chronic anticoagulation therapy. The left lower extremity is without acute abnormality. Dressing is intact without significant drainage less tender to touch Neuro: Awake alert oriented to person place and time. There are no acute new gross focal sensory motor deficits. - Labs CBC & Chem 7: 10/09/18 05:22 10/09/18 05:22 Labs: Abnormal Lab Results - Last 24 Hours (Table) 10/09/18 10/09/18 Range/Units 05:22 05:22 RBC 3.31 L (4.30-5.90) m/uL Hgb 9.9 L (13.0-17.5) gm/dL Hct 30.8 L (39.0-53.0) % Lymphocytes # 0.7 L (1.0-4.8) k/uL Sodium 136 L (137-145) mmol/L BUN 28 H (9-20) mg/dL Glucose 110 H (74-99) mg/dL Calcium 7.8 L (8.4-10.2) mg/dL Laboratory Results WBC 8.7 k/uL (3.8-10.6) 10/09/18 05:22 RBC 3.31 m/uL (4.30-5.90) L 10/09/18 05:22 Hgb 9.9 gm/dL (13.0-17.5) L 10/09/18 05:22 Hct 30.8 % (39.0-53.0) L 10/09/18 05:22 MCV 92.8 fL (80.0-100.0) 10/09/18 05:22 MCH 29.8 pg (25.0-35.0) 10/09/18 05:22 MCHC 32.1 g/dL (31.0-37.0) 10/09/18 05:22 RDW 14.0 % (11.5-15.5) 10/09/18 05:22 Plt Count 282 k/uL (150-450) 10/09/18 05:22 Neutrophils % 79 % 10/09/18 05:22 Lymphocytes % 8 % 10/09/18 05:22 Monocytes % 6 % 10/09/18 05:22 Eosinophils % 5 % 10/09/18 05:22 Basophils % 1 % 10/09/18 05:22 Neutrophils # 6.9 k/uL (1.3-7.7) 10/09/18 05:22 Lymphocytes # 0.7 k/uL (1.0-4.8) L 10/09/18 05:22 Monocytes # 0.5 k/uL (0-1.0) 10/09/18 05:22 Eosinophils # 0.5 k/uL (0-0.7) 10/09/18 05:22 Basophils # 0.0 k/uL (0-0.2) 10/09/18 05:22 PT 11.3 sec (9.0-12.0) 10/09/18 05:22 INR 1.1 (<1.2) 10/09/18 05:22 Sodium 136 mmol/L (137-145) L 10/09/18 05:22 Potassium 4.2 mmol/L (3.5-5.1) 10/09/18 05:22 Chloride 103 mmol/L (98-107) 10/09/18 05:22 Carbon Dioxide 25 mmol/L (22-30) 10/09/18 05:22 Anion Gap 8 mmol/L 10/09/18 05:22 BUN 28 mg/dL (9-20) H 10/09/18 05:22 Creatinine 1.17 mg/dL (0.66-1.25) 10/09/18 05:22 Est GFR (CKD-EPI)AfAm 70 (>60 ml/min/1.73 sqM) 10/09/18 05:22 Est GFR (CKD-EPI)NonAf 61 (>60 ml/min/1.73 sqM) 10/09/18 05:22 Glucose 110 mg/dL (74-99) H 10/09/18 05:22 Calcium 7.8 mg/dL (8.4-10.2) L 10/09/18 05:22 Total Bilirubin 1.5 mg/dL (0.2-1.3) H 10/05/18 11:46 AST 33 U/L (17-59) 10/05/18 11:46 ALT 60 U/L (21-72) 10/05/18 11:46 Alkaline Phosphatase 136 U/L (38-126) H 10/05/18 11:46 Total Protein 6.6 g/dL (6.3-8.2) 10/05/18 11:46 Albumin 3.6 g/dL (3.5-5.0) 10/05/18 11:46 Vancomycin Trough 15.3 ug/mL 10/09/18 05:22 Microbiology 10/06/18 12:30 Leg - Right Gram Stain - Final 10/06/18 12:30 Leg - Right Wound Culture - Final 10/06/18 12:30 Leg - Right Gram Stain - Final 10/06/18 12:30 Leg - Right Wound Culture - Final 10/06/18 12:30 Leg - Right Anaerobic Culture - Preliminary 10/06/18 12:30 Leg - Right Anaerobic Culture - Preliminary Assessment and Plan (1) Fall with injury Current Visit: Yes Status: Acute Code(s): W19.XXXA - UNSPECIFIED FALL, INITIAL ENCOUNTER SNOMED Code(s): 345265202 (2) Hematoma of right lower extremity Narrative/Plan: 73-year-old male who is a complex history including aortic valve replacement and a history of pulmonary histoplasmosis who is been treated in 2017 with improvement. He has never had an acute traumatic event to the right lower extremity and is now admitted for orthopedic intervention. Given the aortic valve replacement and complex history it is most prudent that antibiotic therapy is initiated, Ancef will be utilized at this time local wound care will be directed after the surgical intervention. Likely will have negative pressure therapy applied. With then have to follow the wound center for ongoing evaluations after his discharge. Pain control seems to be adequate. We'll monitor. 10/06/2012 patient is now in the incision and drainage performed. There was significant difficulty here in the postoperative time frame with bleeding and clot formed on the VAC sponge in clot within the tubing making the back inoperable. Constantly this is removed and the cavity is packed with saline moistened gauze. Was being is better controlled wound VAC can be restarted. This is likely going to be by Tuesday. Cultures are processing continue a ntibiotic therapy with Ancef until cultures are available. Elevation of the limb for now will help with the difficulty with bleeding postoperatively. 10/09/2018 patient is having improvement. No further excessive bleeding is being noted at this point in time. Was being packed with the saline dressing at this time. Cultures are negative currently being treated with vancomycin therapy. As he is improving we'll work with the discharge planners for home care and hopefully with packing with the saline dressing potentially with the silver alginate. he will follow-up in the wound healing Center and then hopefully will be able to have negative pressure therapy when bleeding is under good control. Antibiotic therapy will likely be oral if cultures remain negative Current Visit: No Status: Acute Priority: Medium Code(s): S80.11XA - CONTUSION OF RIGHT LOWER LEG, INITIAL ENCOUNTER SNOMED Code(s): 618844494
[2018-10-10] MEDS: HYDROcodone/APAP 5-325MG 1 EACH TAB PO PRN (04:59)
[2018-10-10] MEDS: LEVOTHYROXINE 75 MCG TAB PO SCH (04:59)
[2018-10-10 07:37] LABS: Basophils # (A) 0.1 k/uL (0-0.2); Basophils % (A) 1 %; Eosinophils # (A) 0.5 k/uL (0-0.7); Eosinophils % (A) 7 %; HCT 30.4 % (39.0-53.0); HGB 9.7 gm/dL (13.0-17.5); Lymphocytes # (A) 0.8 k/uL (1.0-4.8); Lymphocytes % (A) 10 %; MCH 29.9 pg (25.0-35.0); MCHC 31.9 g/dL (31.0-37.0); MCV 93.6 fL (80.0-100.0); Monocytes # (A) 0.4 k/uL (0-1.0); Monocytes % (A) 6 %; Neutrophils # (A) 5.8 k/uL (1.3-7.7); Neutrophils % (A) 75 %; Platelet Count 309 k/uL (150-450); RBC 3.25 m/uL (4.30-5.90); RDW 14.5 % (11.5-15.5); WBC 7.8 k/uL (3.8-10.6)
[2018-10-10 07:44] LABS: Prothrombin Time 10.9 sec (9.0-12.0)
[2018-10-10 07:50] LABS: Calcium 7.9 mg/dL (8.4-10.2); Potassium 4.6 mmol/L (3.5-5.1)
[2018-10-10] MEDS: HEPARIN SODIUM,PORCINE 5,000 UNIT/ML 1 ML VIAL SQ SCH (07:54)
[2018-10-10] MEDS: FERROUS SULFATE 325 MG TAB PO SCH (07:54)
[2018-10-10] MEDS: VENLAFAXINE HCL ER 75 MG CAP PO SCH (07:54)
[2018-10-10] MEDS: DIGOXIN 125 MCG TAB PO SCH (07:55)
[2018-10-10] MEDS: DONEPEZIL 5 MG TAB PO SCH (07:55)
[2018-10-10] MEDS: SPIRONOLACTONE 25 MG TAB PO SCH (07:55)
[2018-10-10] MEDS: METOPROLOL TARTRATE 25 MG TAB PO SCH ×2 (07:55→14:38)
[2018-10-10] MEDS: METHYLPHENIDATE HCL 10 MG TAB PO SCH ×2 (07:56→14:38)
[2018-10-10] MEDS ORDERED: SODIUM CHLORIDE 0.9% 500 ML 500 ML IV ONE (09:12)
--- NOTE | 2018-10-10 11:11 | P.PN ---
Subjective Progress Note Date: 10/10/18 Principal diagnosis: follow up for medical management of afib, hypertension , anemia. patient admitted for I and D and wound vac insertion due to right leg hematoma/cellulitis patient seen and examined, patient is doing well denies any chest pain or trouble breathing , no fevers or chills. surgical dressing clean and dry. tolerating PO intake , had a bowel movement yesterday no bleeding denies nay nausea or vomiting Objective - Vital Signs Vital signs: Vital Signs Temp 97.5 F L 10/10/18 07:31 Pulse 88 10/10/18 08:00 Resp 20 10/10/18 07:31 BP 110/73 10/10/18 07:31 Pulse Ox 95 10/10/18 07:31 Intake & Output 10/09/18 10/10/18 10/10/18 18:59 06:59 18:59 Intake Total 500 1500 Balance 500 1500 Weight 104.1 kg Intake: Intake, IV Titration 500 500 Amount Sodium Chloride 0.9% 500 500 ml 500 ml @ 999 mls/hr IV .Q31M ONE Rx#:[id number] Vancomycin 1,500 mg In 500 Sodium Chloride 0.9% 250 ml @ 125 mls/hr IVPB Q16H [facility] Rx#:[id number] Oral 1000 Other: Voiding Method Toilet Urinal # Voids 3 3 - Exam General: no acute distress, pleasant, conversant and cooperative Cardiovascular: Skin flap over the sternal area , S1 S2 reg, systolic murmur, no edema, capillary refill immediate Lungs: CTA bilateral, no rhonchi, no rales , no accessory muscle use Abdominal: soft, nontender to palpation, no guarding, normal bowel sounds Ext: Right leg surgical dressing dry clean, slight tenderness to palpation over surgical site no evidence of active bleeding or drainage. Wound VAC has not been reapplied yet Psych: Alert, oriented, appropriate affect - Labs CBC & Chem 7: 10/10/18 07:11 10/10/18 07:11 Labs: Abnormal Lab Results - Last 24 Hours (Table) 10/10/18 10/10/18 Range/Units 07:11 07:11 RBC 3.25 L (4.30-5.90) m/uL Hgb 9.7 L (13.0-17.5) gm/dL Hct 30.4 L (39.0-53.0) % Lymphocytes # 0.8 L (1.0-4.8) k/uL BUN 27 H (9-20) mg/dL Creatinine 1.32 H (0.66-1.25) mg/dL Glucose 114 H (74-99) mg/dL Calcium 7.9 L (8.4-10.2) mg/dL Assessment and Plan Assessment: Patient is a 73-year-old male past medical history of atrial fibrillation on chronic Coumadin therapy, congestive heart failure with unknown ejection fraction, arthritis, hypertension, dyslipidemia, and prior aortic valve replacement with mitral valve repair 2016, resulting in sternal infection r equiring sternotomy and muscle flap closure for sternal infections. he presented as a direct admit from Dr. Mckeon's office secondary to hematoma over his left leg after sustaining a fall and injury, no acute fractures. admitted for I and D and wound vac insertion per ortho surgery. Wound VAC was blocked by the bleeding which has been removed wound was repacked and wrapped with Kieran wrapping. ID following, patient currently on vancomycin. Intraoperative Cultures negative to date 10/09 continue supportive care, per orthopedic. await ID decision regarding reapplying the wound vac. from medical stand point patient showing early signs of possible dehydration (dark urine, lower blood pressure and slight tachycardia) will give patient 500cc bolus of IVF and encourage PO intake , discontinue lasix, but continue with aldactone (history of CHF) 10/10 patient doing well, planning on discharge with PO antibiotics, patient has a little rise in his creatinine today, making good urine output, he is a little dehydrated, lasix was discontinued yesterday, vanco trough is at goal will be discontinued upon discharge could be playing a role into slightly elevated creatinine , follow up OP with PCP on renal function. med rec performed Plan: Right lower extremity hematoma and cellulitis post I&D day 4 -ID following, currently patient is on vancomycin , will be discharge on PO antibiotics, cultures negative -Status post I&D tolerated procedure well. Immediate postoperative course was complicated by blood clogging the wound VAC which has then been removed. Wound was repacked and wrapped with Kieran wrapping - Pain control Elevation of the limb A fib, chronic coumadin use - hold coumadin - Continue digoxin Cardiac monitoring Cardiology following Compensated CHF, Unknown EF - No chronically on BB or ACEI, continue aldactone and lasix Short term memory loss - safe and supportive environment HLD - continue home statin HTN, controlled - follow BP, currently borderline low normal - Continue home aldactone and discontinue lasix gentle IVF bolus Chronic anemia, with postoperative worsening of anemia as expected , now stable overall - follow CBC - continue iron supplementation DVT prophylaxis: heparin sc tid stable from internal medicine standpoint for discharge follow up outpatient with PCP on renal function ( little rise in cr, component of dehydration and side effect of vanco ) coumadin on hold , defer to cardiology for restart.
--- NOTE | 2018-10-10 12:45 | P.DS ---
Providers Date of admission: 10/05/18 11:14 Expected date of discharge: 10/10/18 Attending physician: Joe Mckeon Consults: 10/05/18 11:21 Consult Physician Stat Consulting Provider: Johnny Ramos Consult Reason/Comments: right lower extremity, hematoma, cellulitis Do you want consulting provider notified?: Yes Consult Physician Urgent Consulting Provider: Maribell Aaron Consult Reason/Comments: medical management Do you want consulting provider notified?: Yes 10/05/18 11:32 Consult Physician Urgent Consulting Provider: Dayami Guadarrama Consult Reason/Comments: cardiology management Do you want consulting provider notified?: Yes Primary care physician: Stated None - Discharge Diagnosis(es) (1) Hematoma of right lower extremity Patient was admitted to the OR on 10/06/2018 to undergo an I and D of right lower leg hematoma. He had failed conservative measures as an outpatient and desired to proceed with surgery after given informed consent. He underwent the above procedure which he tolerated well without complication. Wound vac was changed to compressive bandage with sterile saline postop day. Postoperative hospital course has remained without complication. On day of discharge he is afebrile, vital signs stable, labs within acceptable ranges, tolerating by mouth meds and diet, voiding without difficulty, positive flatus, denies abdominal pain or calf pain, pain is controlled on oral pain medication and has no new complaints. Wound is benign, neurovascular status is intact, calf is soft and nontender, abdomen soft and nontender. Review of systems is negative for numbness, tingling, fever, chills, chest pain, shortness breath, nausea, vomiting, dizziness, headaches, slurred speech or other Current Visit: No Status: Acute Priority: Medium Procedures: I and D hematoma right lower leg Patient Condition at Discharge: Good Plan - Discharge Summary Discharge Rx Participant: No New Discharge Prescriptions: Continue Spironolactone [Aldactone] 25 mg PO DAILY #7 tab Aspirin 81 mg PO DAILY Atorvastatin Calcium [Lipitor] 10 mg PO DAILY Digoxin [Lanoxin] 125 mcg PO QAM Ferrous Sulfate [Iron (65 MG Elemental)] 325 mg PO DAILY Melatonin 10 mg PO HS Venlafaxine HCl ER [Effexor XR] 75 mg PO DAILY Levothyroxine Sodium [Synthroid] 150 mcg PO DAILY@0600 Metoprolol Tartrate 25 mg PO BID@0700,1400 Methylphenidate HCl [Ritalin] 10 mg PO BID@0700,1400 Donepezil [Aricept] 5 mg PO DAILY Discontinued Furosemide [Lasix] 40 mg PO QAM No Action Warfarin Sodium [Coumadin] 5 mg PO DIRECTED Discharge Medication List Spironolactone [Aldactone] 25 mg PO DAILY #7 tab 01/03/17 [Rx] Aspirin 81 mg PO DAILY 06/07/17 [History] Atorvastatin Calcium [Lipitor] 10 mg PO DAILY 06/07/17 [History] Digoxin [Lanoxin] 125 mcg PO QAM 06/07/17 [History] Ferrous Sulfate [Iron (65 MG Elemental)] 325 mg PO DAILY 06/07/17 [History] Melatonin 10 mg PO HS 06/07/17 [History] Donepezil [Aricept] 5 mg PO DAILY 10/05/18 [History] Levothyroxine Sodium [Synthroid] 150 mcg PO DAILY@0600 10/05/18 [History] Methylphenidate HCl [Ritalin] 10 mg PO BID@0700,1400 10/05/18 [History] Metoprolol Tartrate 25 mg PO BID@0700,1400 10/05/18 [History] Venlafaxine HCl ER [Effexor XR] 75 mg PO DAILY 10/05/18 [History] Warfarin Sodium [Coumadin] 5 mg PO DIRECTED 10/05/18 [History] Follow up Appointment(s)/Referral(s): [facility], [NON-STAFF] - As Needed Joe Mckeon MD [STAFF PHYSICIAN] - 1 Week Activity/Diet/Wound Care/Special Instructions: WBAT Maintain bandage take meds as directed Home health wound care and f/u per Dr. Ramos F/U with Dr. Mckeon in office Discharge Disposition: HOME WITH HOME HEALTH SERVICES
[2018-10-10] MEDS: VANCOMYCIN 1,500 MG in SODIUM CHLORIDE 0.9% 250 ML IVPB SCH (13:58)
[2018-10-10 15:27] VITALS: BP 110/66; PULSE 83; RESP 16; TEMP 97.8
--- NOTE | 2018-10-10 17:09 | P.PN ---
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 Has been doing modestly well per the , he was in the barn when the floor gave way and he fell into the subflooring causing the significant inj ury and hematoma to the right leg. He has been seen by orthopedics and admitted for the surgical incision and drainage that is planned. At this time the patient has pain and is somewhat miserable because of the problem awaiting surgical intervention. He is not having high-grade fevers or chills but due to the injury and need for wound care was topically the consult has been requested as well as antibiotic therapy. Patient had the I&D today of the right lateral leg. vac was applied and now has blockage and bleeding. Pain at site is better but still at least a 5 10/09/2018 patient is doing relatively well after his incision and drainage. Bleeding is under better control with current packing. Plans being made for his discharge to the home setting. 10/10/2018 patient is had further improvement of his status. The leg is painful but not more so than before. Pain level is a 4 today. Fortunately has been only minimal drainage being seen. Objective - Vital Signs Vital signs: Vital Signs Temp 97.8 F 10/10/18 13:58 Pulse 83 10/10/18 13:58 Resp 16 10/10/18 13:58 BP 110/66 10/10/18 13:58 Pulse Ox 96 10/10/18 13:58 Intake & Output 10/09/18 10/10/18 10/10/18 18:59 06:59 18:59 Intake Total 500 1500 Balance 500 1500 Weight 104.1 kg Intake: Intake, IV Titration 500 500 Amount Sodium Chloride 0.9% 500 500 ml 500 ml @ 999 mls/hr IV .Q31M ONE Rx#:[id number] Vancomycin 1,500 mg In 500 Sodium Chloride 0.9% 250 ml @ 125 mls/hr IVPB Q16H [facility] Rx#:[id number] Oral 1000 Other: Voiding Method Toilet Urinal # Voids 3 3 1 - Exam Pleasant 73-year-old male in some discomfort because of the trauma to the right leg. HEENT: Anicteric conjunctiva are pink and moist nasal mucosa grossly intact without significant lesions, there is no thrush. Neck: The neck is supple without significant lymphadenopathy or thyromegaly. Lungs: Good bilateral air entry without significant crackles or wheezing. There is no significant bronchial sounds. There is no egophony or dullness. Heart: Regular rate and rhythm with an audible S1-S2, no S3 no S4. There is no significant murmur click or rub, PMI was nondisplaced. Abdomen: Positive bowel sounds soft and nontender without palpable masses or organomegaly. There was no guarding or rebound. Extremities: Upper shoulders show evidence of areas of ecchymosis from his activity in his thin skin and chronic anticoagulation therapy. The left lower extremity is without acute abnormality. Dressing is removed and the surgical ulceration is seen. It is closer saline then easily packed with the saline moistened silver alginate dressing. ABD pad rolled gauze and Kieran wrap is applied. Patient tolerates this well. Neuro: Awake alert oriented to person place and time. There are no acute new gross focal sensory motor deficits. - Labs CBC & Chem 7: 10/10/18 07:11 10/10/18 07:11 Labs: Abnormal Lab Results - Last 24 Hours (Table) 10/10/18 10/10/18 Range/Units 07:11 07:11 RBC 3.25 L (4.30-5.90) m/uL Hgb 9.7 L (13.0-17.5) gm/dL Hct 30.4 L (39.0-53.0) % Lymphocytes # 0.8 L (1.0-4.8) k/uL BUN 27 H (9-20) mg/dL Creatinine 1.32 H (0.66-1.25) mg/dL Glucose 114 H (74-99) mg/dL Calcium 7.9 L (8.4-10.2) mg/dL Laboratory Results WBC 7.8 k/uL (3.8-10.6) 10/10/18 07:11 RBC 3.25 m/uL (4.30-5.90) L 10/10/18 07:11 Hgb 9.7 gm/dL (13.0-17.5) L 10/10/18 07:11 Hct 30.4 % (39.0-53.0) L 10/10/18 07:11 MCV 93.6 fL (80.0-100.0) 10/10/18 07:11 MCH 29.9 pg (25.0-35.0) 10/10/18 07:11 MCHC 31.9 g/dL (31.0-37.0) 10/10/18 07:11 RDW 14.5 % (11.5-15.5) 10/10/18 07:11 Plt Count 309 k/uL (150-450) 10/10/18 07:11 Neutrophils % 75 % 10/10/18 07:11 Lymphocytes % 10 % 10/10/18 07:11 Monocytes % 6 % 10/10/18 07:11 Eosinophils % 7 % 10/10/18 07:11 Basophils % 1 % 10/10/18 07:11 Neutrophils # 5.8 k/uL (1.3-7.7) 10/10/18 07:11 Lymphocytes # 0.8 k/uL (1.0-4.8) L 10/10/18 07:11 Monocytes # 0.4 k/uL (0-1.0) 10/10/18 07:11 Eosinophils # 0.5 k/uL (0-0.7) 10/10/18 07:11 Basophils # 0.1 k/uL (0-0.2) 10/10/18 07:11 PT 10.9 sec (9.0-12.0) 10/10/18 07:11 INR 1.0 (<1.2) 10/10/18 07:11 Sodium 138 mmol/L (137-145) 10/10/18 07:11 Potassium 4.6 mmol/L (3.5-5.1) 10/10/18 07:11 Chloride 105 mmol/L (98-107) 10/10/18 07:11 Carbon Dioxide 27 mmol/L (22-30) 10/10/18 07:11 Anion Gap 6 mmol/L 10/10/18 07:11 BUN 27 mg/dL (9-20) H 10/10/18 07:11 Creatinine 1.32 mg/dL (0.66-1.25) H 10/10/18 07:11 Est GFR (CKD-EPI)AfAm 61 (>60 ml/min/1.73 sqM) 10/10/18 07:11 Est GFR (CKD-EPI)NonAf 53 (>60 ml/min/1.73 sqM) 10/10/18 07:11 Glucose 114 mg/dL (74-99) H 10/10/18 07:11 Calcium 7.9 mg/dL (8.4-10.2) L 10/10/18 07:11 Total Bilirubin 1.5 mg/dL (0.2-1.3) H 10/05/18 11:46 AST 33 U/L (17-59) 10/05/18 11:46 ALT 60 U/L (21-72) 10/05/18 11:46 Alkaline Phosphatase 136 U/L (38-126) H 10/05/18 11:46 Total Protein 6.6 g/dL (6.3-8.2) 10/05/18 11:46 Albumin 3.6 g/dL (3.5-5.0) 10/05/18 11:46 Vancomycin Trough 15.3 ug/mL 10/09/18 05:22 Microbiology 10/06/18 12:30 Leg - Right Gram Stain - Final 10/06/18 12:30 Leg - Right Wound Culture - Final 10/06/18 12:30 Leg - Right Gram Stain - Final 10/06/18 12:30 Leg - Right Wound Culture - Final 10/06/18 12:30 Leg - Right Anaerobic Culture - Preliminary 10/06/18 12:30 Leg - Right Anaerobic Culture - Preliminary Assessment and Plan (1) Fall with injury Current Visit: Yes Status: Acute Code(s): W19.XXXA - UNSPECIFIED FALL, INITIAL ENCOUNTER SNOMED Code(s): 945683717 (2) Hematoma of right lower extremity Narrative/Plan: 73-year-old male who is a complex history including aortic valve replacement and a history of pulmonary histoplasmosis who is been treated in 2017 with improve ment. He has never had an acute traumatic event to the right lower extremity and is now admitted for orthopedic intervention. Given the aortic valve replacement and complex history it is most prudent that antibiotic therapy is initiated, Ancef will be utilized at this time local wound care will be directed after the surgical intervention. Likely will have negative pressure therapy applied. With then have to follow the wound center for ongoing evaluations after his discharge. Pain control seems to be adequate. We'll monitor. 10/06/2012 patient is now in the incision and drainage performed. There was significant difficulty here in the postoperative time frame with bleeding and clot formed on the VAC sponge in clot within the tubing making the back inoperable. Constantly this is removed and the cavity is packed with saline moistened gauze. Was being is better controlled wound VAC can be restarted. This is likely going to be by Tuesday. Cultures are processing continue antibiotic therapy with Ancef until cultures are available. Elevation of the limb for now will help with the difficulty with bleeding postoperatively. 10/09/2018 patient is having improvement. No further excessive bleeding is being noted at this point in time. Was being packed with the saline dressing at this time. Cultures are negative currently being treated with vancomycin therapy. As he is improving we'll work with the discharge planners for home care and hopefully with packing with the saline dressing potentially with the silver alginate. he will follow-up in the wound healing Center and then hopefully will be able to have negative pressure therapy when bleeding is under good control. Antibiotic therapy will likely be oral if cultures remain negative 10/10/2018 patient is improved. Is being ready for discharge home. Antibiotic therapy with cefadroxil as sent to his pharmacy. Wound care orders are sent to the home care company with the silver alginate being changed every Tuesday. We'll follow-up with orthopedics and would be happy to see him in the outpatient clinic at the wound center if needed. There is a potential for wound VAC to be retried his lungs is no further difficulties with bleeding. Current Visit: No Status: Acute Priority: Medium Code(s): S80.11XA - CONTUSION OF RIGHT LOWER LEG, INITIAL ENCOUNTER SNOMED Code(s): 964421204
[2018-10-11] MEDS ORDERED: VANCOMYCIN TROUGH DUE 1 EACH MISC MISCELLANE ONE (05:00)
[2018-10-13] MEDS ORDERED: ceFAZolin 2 GM in SODIUM CHLORIDE 0.9% 100 ML IVPB SCH (21:00)
== END 2018-10-10 18:27 | disposition home health service (06) | DRG 580 ==
LOC: 4SSUR 11:14
PROVIDERS: ADMIT Orthopaedic Surgery Sports Medicine; ATTEND Orthopaedic Surgery Sports Medicine
PROC: 0J9N0ZZ Drainage of Right Lower Leg Subcutaneous Tissue and Fascia, Open Approach (ICD-10-PCS; principal; 2018-10-06 11:30)
DX: S80.11XA Contusion of right lower leg, initial encounter (principal); L03.115 Cellulitis of right lower limb; I42.9 Cardiomyopathy, unspecified; I50.32 Chronic diastolic (congestive) heart failure; I48.0 Paroxysmal atrial fibrillation; I11.0 Hypertensive heart disease with heart failure; D64.9 Anemia, unspecified; M19.90 Unspecified osteoarthritis, unspecified site; I83.90 Asymptomatic varicose veins of unspecified lower extremity; E89.0 Postprocedural hypothyroidism; F32.9 Major depressive disorder, single episode, unspecified; E78.5 Hyperlipidemia, unspecified; G47.00 Insomnia, unspecified; R05 Cough; R41.3 Other amnesia; K44.9 Diaphragmatic hernia without obstruction or gangrene; W17.89XA Other fall from one level to another, initial encounter; E86.0 Dehydration; Z79.899 Other long term (current) drug therapy; Z79.82 Long term (current) use of aspirin; Z79.890 Hormone replacement therapy; Z79.01 Long term (current) use of anticoagulants; Z98.42 Cataract extraction status, left eye; Z98.41 Cataract extraction status, right eye; Z87.891 Personal history of nicotine dependence; Z96.652 Presence of left artificial knee joint; Z86.711 Personal history of pulmonary embolism; Z85.850 Personal history of malignant neoplasm of thyroid; Z95.3 Presence of xenogenic heart valve; Z96.1 Presence of intraocular lens; Z82.49 Family history of ischemic heart disease and other diseases of the circulatory system; Z80.0 Family history of malignant neoplasm of digestive organs
CPT/HCPCS: 71046; 80048; 80053; 80202; 85025; 85027; 85610; 87070; 87075; 87205

== ENCOUNTER 2018-10-12 20:19 | Inpatient (IN) | payer MEDICARE, OTHER ==
--- NOTE | 2018-10-12 21:13 | ED ---
General Adult HPI - General Source: patient, RN notes reviewed Mode of arrival: ambulatory Limitations: no limitations <Tree Pastrana - Last Filed: 10/12/18 22:58> <Khalida Saxena - Last Filed: 10/13/18 04:30> - General Chief complaint: Urogenital Stated complaint: Urinary Retention Time Seen by Provider: 10/12/18 20:29 - History of Present Illness Initial comments: 73-year-old male presents emergency Department with chief complaint of unable to urinate. Patient states that he has not urinated in 2 days. Patient was recently discharged from the hospital after surgery on his right leg for large hematoma. This was performed by orthopedics. Patient states that he does take Coumadin. Patient states he did see PCP today who ordered a CT then pelvis tomorrow and was advised well emergency Department if he did not urinate throughout the day. Patient had worsening abdominal pain, still unable to urin ate. Patient had recent visits with urology for checkup with normal prostate exam no comp eating fractures. Patient had no history of urinary retention. Patient reports no fevers or chills. He states that he cannot tolerate the abdominal pain anymore. Patient did have bowel movement today with no difficulty. (Tree Pastrana) - Related Data Home Medications Medication Instructions Recorded Confirmed Aspirin 81 mg PO DAILY 06/07/17 10/12/18 Atorvastatin Calcium [Lipitor] 10 mg PO DAILY 06/07/17 10/12/18 Ferrous Sulfate [Iron (65 MG 325 mg PO DAILY 06/07/17 10/12/18 Elemental)] Donepezil [Aricept] 5 mg PO DAILY 10/05/18 10/12/18 Levothyroxine Sodium [Synthroid] 150 mcg PO DAILY@0600 10/05/18 10/12/18 Methylphenidate HCl [Ritalin] 10 mg PO BID@0700,1400 10/05/18 10/12/18 Metoprolol Tartrate 25 mg PO BID@0700,1400 10/05/18 10/12/18 Venlafaxine HCl ER [Effexor XR] 75 mg PO DAILY 10/05/18 10/12/18 Warfarin Sodium [Coumadin] 4.5 mg PO DAILY 10/05/18 10/12/18 Furosemide [Lasix] 40 mg PO DAILY 10/12/18 10/12/18 Previous Rx's Medication Instructions Recorded Spironolactone [Aldactone] 25 mg PO DAILY #7 tab 01/03/17 Cefadroxil [Duricef] 500 mg PO Q12HR #14 cap 10/10/18 Allergies Allergy/AdvReac Type Severity Reaction Status Date / Time No Known Allergies Allergy Verified 10/12/18 20:49 Review of Systems ROS Other: All systems not noted in ROS Statement are negative. <Tree Pastrana - Last Filed: 10/12/18 22:58> ROS Other: All systems not noted in ROS Statement are negative. <Khalida Saxena - Last Filed: 10/13/18 04:30> ROS Statement: Those systems with pertinent positive or pertinent negative responses have been documented in the HPI. Past Medical History Past Medical History: Atrial Fibrillation, Cancer, Heart Failure, Deep Vein Thrombosis (DVT), Hyperlipidemia, Hypertension, Osteoarthritis (OA), Pulmonary Embolus (PE), Thyroid Disorder, Vascular Disorder Additional Past Medical History / Comment(s): THYROID CANCER with surgery/radio active tablets, bilateral lower leg cellulitis 2015, varicose veins, past DVTs and PEs, short term memory problems, episodes of hypotension, hiatal hernia, gastritis. Insomnia. Depression. Atrial fibrillation. History of Any Multi-Drug Resistant Organisms: None Reported Past Surgical History: Cardiac Valve Replacement, Heart Catheterization, Joint Replacement Additional Past Surgical History / Comment(s): Thyroidectomy, total left knee replacement, JAYDE/CVN, 09/29/16 aortic valve replacement with bovine valve and mitral valve repair, mediastinal lymph node biopsy, sternal chest wound debridement/ wound vac/sternotomy and muscle straps, COLONOSCOPY, EGD, bilateral cataract removals and L eye was injured requirin surgery to remove blood. Past Anesthesia/Blood Transfusion Reactions: No Reported Reaction Additional Past Anesthesia/Blood Transfusion Reaction / Comment(s): Pt has received blood in past without reaction. Past Psychological History: Depression Smoking Status: Former smoker Past Alcohol Use History: Rare Past Drug Use History: None Reported - Past Family History Father Family Medical History: Coronary Artery Disease (CAD) Additional Family Medical History / Comment(s): Father at the age pf 76yrs from heart problems. Mother Family Medical History: Vascular Disorder Additional Family Medical History / Comment(s): Mother had varicosities. She lived to be 92 yrs old. Brother(s) Family Medical History: Cancer Additional Family Medical History / Comment(s): LIVER CA. BLOOD CLOT. <Tree Pastrana - Last Filed: 10/12/18 22:58> General Exam Limitations: no limitations General appearance: alert, in no apparent distress Head exam: Present: atraumatic, normocephalic, normal inspection Neck exam: Present: normal inspection. Absent: tenderness, meningismus, lymphadenopathy Respiratory exam: Present: normal lung sounds bilaterally. Absent: respiratory distress, wheezes, rales, rhonchi, stridor Cardiovascular Exam: Present: regular rate, normal rhythm, normal heart sounds. Absent: systolic murmur, diastolic murmur, rubs, gallop, clicks GI/Abdominal exam: Present: soft, distended, tenderness, guarding, normal bowel sounds. Absent: rebound, rigid <Tree Pastrana - Last Filed: 10/12/18 22:58> Course Vital Signs 10/12/18 10/12/18 10/12/18 20:23 21:18 22:00 Temperature 98 F Pulse Rate 83 84 85 Respiratory 18 20 22 Rate Blood Pressure 119/74 117/74 119/70 O2 Sat by Pulse 97 98 98 Oximetry 10/12/18 10/12/18 10/12/18 22:23 22:46 23:00 Temperature Pulse Rate 83 82 84 Respiratory 18 18 24 Rate Blood Pressure 114/76 128/79 128/79 O2 Sat by Pulse 99 100 98 Oximetry 10/12/18 10/13/18 10/13/18 23:14 00:00 01:00 Temperature Pulse Rate 84 89 85 Respiratory 18 20 17 Rate Blood Pressure 130/84 135/75 125/75 O2 Sat by Pulse 96 96 96 Oximetry EKG Findings - EKG Comments: EKG Findings:: EKG performed at 22:31 sinus rhythm with PAC, rate of 80 OK 192 QRS 1:30 QT/QTC 418/42 <Tree Pastrana - Last Filed: 10/12/18 22:58> Medical Decision Making - Lab Data Result diagrams: 10/12/18 21:10 10/12/18 21:10 <Tree Pastrana - Last Filed: 10/12/18 22:58> - Lab Data Result diagrams: 10/12/18 21:10 10/12/18 21:10 <Khalida Saxena - Last Filed: 10/13/18 04:30> - Medical Decision Making 73-year-old male presented for urinary retention, abdominal pain. Patient's found to have a large hematoma surrounding the bladder, subcu tissue. Patient's found to have acute renal failure with hyperkalemia. Patient be admitted to medicine with consult to urology and trauma. (Tree Pastrana) The history and physical exam were initially performed by the midlevel provider. I was consulted for this patient's care. I reviewed the case with the midlevel provider and based on their presentation of the patient, I agree with the assessment, medical decision making and plan for admission. I personally saw and evaluated the patient who was resting comfortably with a Duong catheter in place yellow urine was draining from the catheter. I discussed patient care with the admitting physician Dr. Nix excepts the admission for acute renal failure likely secondary to hernia retention due to hematoma surrounding the bladder. In addition I did discuss patient care with on-call general surgeon Dr. Garcia who will be on consult and urology Dr. Lim. When discussing care with Dr. Germain I did advise the initial urine was dark red and he recommended a larger Bulgarian Duong catheter however upon reevaluation the patient's urine has completely cleared and is now yellow with only a tentative pink and is draining freely. At this time I do not feel a larger Bulgarian catheter is indicated. Patient will be evaluated by urology in the morning. (Khalida Saxena) - Lab Data Lab Results 10/12/18 10/12/18 10/12/18 Range/Units 21:10 21:10 21:10 WBC 13.0 H (3.8-10.6) k/uL RBC 3.71 L (4.30-5.90) m/uL Hgb 11.3 L (13.0-17.5) gm/dL Hct 34.2 L (39.0-53.0) % MCV 92.2 (80.0-100.0) fL MCH 30.5 (25.0-35.0) pg MCHC 33.1 (31.0-37.0) g/dL RDW 15.0 (11.5-15.5) % Plt Count 425 (150-450) k/uL Neutrophils % 86 % Lymphocytes % 6 % Monocytes % 5 % Eosinophils % 2 % Basophils % 0 % Neutrophils # 11.2 H (1.3-7.7) k/uL Lymphocytes # 0.8 L (1.0-4.8) k/uL Monocytes # 0.6 (0-1.0) k/uL Eosinophils # 0.3 (0-0.7) k/uL Basophils # 0.1 (0-0.2) k/uL PT (9.0-12.0) sec INR (<1.2) APTT (22.0-30.0) sec Sodium 133 L (137-145) mmol/L Potassium 6.1 H* (3.5-5.1) mmol/L Chloride 100 (98-107) mmol/L Carbon Dioxide 20 L (22-30) mmol/L Anion Gap 13 mmol/L BUN 71 H (9-20) mg/dL Creatinine 6.34 H (0.66-1.25) mg/dL Est GFR (CKD-EPI)AfAm 9 (>60 ml/min/1.73 sqM) Est GFR (CKD-EPI)NonAf 8 (>60 ml/min/1.73 sqM) Glucose 144 H (74-99) mg/dL Plasma Lactic Acid Samir 1.4 (0.7-2.0) mmol/L Calcium 7.8 L (8.4-10.2) mg/dL Total Bilirubin 1.2 (0.2-1.3) mg/dL AST 29 (17-59) U/L ALT 48 (21-72) U/L Alkaline Phosphatase 113 (38-126) U/L Total Protein 6.6 (6.3-8.2) g/dL Albumin 3.6 (3.5-5.0) g/dL Amylase 89 (30-110) U/L Lipase 393 H (23-300) U/L Urine Color Urine Appearance (Clear) Urine RBC (0-5) /hpf Urine WBC (0-5) /hpf 10/12/18 10/12/18 Range/Units 21:10 21:10 WBC (3.8-10.6) k/uL RBC (4.30-5.90) m/uL Hgb (13.0-17.5) gm/dL Hct (39.0-53.0) % MCV (80.0-100.0) fL MCH (25.0-35.0) pg MCHC (31.0-37.0) g/dL RDW (11.5-15.5) % Plt Count (150-450) k/uL Neutrophils % % Lymphocytes % % Monocytes % % Eosinophils % % Basophils % % Neutrophils # (1.3-7.7) k/uL Lymphocytes # (1.0-4.8) k/uL Monocytes # (0-1.0) k/uL Eosinophils # (0-0.7) k/uL Basophils # (0-0.2) k/uL PT 11.1 (9.0-12.0) sec INR 1.1 (<1.2) APTT 26.8 (22.0-30.0) sec Sodium (137-145) mmol/L Potassium (3.5-5.1) mmol/L Chloride (98-107) mmol/L Carbon Dioxide (22-30) mmol/L Anion Gap mmol/L BUN (9-20) mg/dL Creatinine (0.66-1.25) mg/dL Est GFR (CKD-EPI)AfAm (>60 ml/min/1.73 sqM) Est GFR (CKD-EPI)NonAf (>60 ml/min/1.73 sqM) Glucose (74-99) mg/dL Plasma Lactic Acid Samir (0.7-2.0) mmol/L Calcium (8.4-10.2) mg/dL Total Bilirubin (0.2-1.3) mg/dL AST (17-59) U/L ALT (21-72) U/L Alkaline Phosphatase (38-126) U/L Total Protein (6.3-8.2) g/dL Albumin (3.5-5.0) g/dL Amylase (30-110) U/L Lipase (23-300) U/L Urine Color Dark Red Urine Appearance Bloody (Clear) Urine RBC >182 H (0-5) /hpf Urine WBC 118 H (0-5) /hpf Critical Care Time Critical Care Time: Yes Total Critical Care Time: 35 <Tree Pastrana - Last Filed: 10/12/18 22:58> Critical Care Time: Total 35 minutes of critical care time were used to initially evaluated patient, reviewed past medical history, vitals. Patient had lab work, urinalysis, CT, Duong was placed. Patient was found to have hematuria and Duong output. Patient had CT of abdomen and pelvis without contrast secondary to new onset renal failure. Patient's CT shows large hematoma with no signs of bladder perforation. Patient also has noted hyperkalemia, IV insulin, D50 and calcium gluconate was given. EKG does not show any QT waves. Patient was given IV fluid bolus, saline maintenance fluids. Case discussed with internal medicine, neurology and on-call trauma surgery. Patient will be admitted for further treatment and management patient's Coumadin will be held. (Tree Pastrana) Disposition <Tree Pastrana - Last Filed: 10/12/18 22:58> <Khalida Saxena - Last Filed: 10/13/18 04:30> Clinical Impression: Acute renal failure, Hyperkalemia, Intra-abdominal hematoma, Gross hematuria, Urinary retention Disposition: ADMITTED IP TO THIS HOSP Condition: Serious
[2018-10-12 21:27] LABS: Basophils # (A) 0.1 k/uL (0-0.2); Basophils % (A) 0 %; Eosinophils # (A) 0.3 k/uL (0-0.7); Eosinophils % (A) 2 %; HCT 34.2 % (39.0-53.0); HGB 11.3 gm/dL (13.0-17.5); Lymphocytes # (A) 0.8 k/uL (1.0-4.8); Lymphocytes % (A) 6 %; MCH 30.5 pg (25.0-35.0); MCHC 33.1 g/dL (31.0-37.0); MCV 92.2 fL (80.0-100.0); Mean Platelet Volume 7.4; Monocytes # (A) 0.6 k/uL (0-1.0); Monocytes % (A) 5 %; Neutrophils # (A) 11.2 k/uL (1.3-7.7); Neutrophils % (A) 86 %; Platelet Count 425 k/uL (150-450); RBC 3.71 m/uL (4.30-5.90)
[2018-10-12 21:34] LABS: INR 1.1 (<1.2); Partial Thromboplastin Time 26.8 sec (22.0-30.0); Prothrombin Time 11.1 sec (9.0-12.0)
[2018-10-12 21:35] LABS: RBC,Urine >182 /hpf (0-5)
[2018-10-12 21:36] LABS: Albumin 3.6 g/dL (3.5-5.0); Appearance,Urine Bloody (Clear); Calcium 7.8 mg/dL (8.4-10.2); Total Bilirubin 1.2 mg/dL (0.2-1.3); Total Protein 6.6 g/dL (6.3-8.2)
[2018-10-12 21:37] LABS: Color,Urine Dark Red
[2018-10-12 21:43] LABS: Potassium 6.1 mmol/L (3.5-5.1)
[2018-10-12] MEDS ORDERED: SODIUM CHLORIDE 0.9% 500 ML 500 ML IV ONE (21:47)
[2018-10-12] MEDS ORDERED: DEXTROSE 50%-WATER 50 ML SYRINGE IVP ONE (21:54)
[2018-10-12] MEDS ORDERED: CALCIUM GLUCONATE 1 GM in SODIUM CHLORIDE 0.9% 100 ML IVPB ONE ×2 (21:54→22:45)
[2018-10-12] MEDS ORDERED: INSULIN REGULAR 100 UNIT/ML VIAL IV ONE (21:54)
--- NOTE | 2018-10-12 22:35 | CT ---
EXAM: CT Abdomen and Pelvis Without Intravenous Contrast CLINICAL HISTORY: Pain TECHNIQUE: Axial computed tomography images of the abdomen and pelvis without intravenous contrast. CTDI is 18.5 mGy and DLP is 1041.4 mGy-cm. This CT exam was performed using one or more of the following dose reduction techniques: automated exposure control, adjustment of the mA and/or kV according to patient size, and/or use of iterative reconstruction technique. COMPARISON: No relevant prior studies available. FINDINGS: There is bilateral pleural thickening along bases otherwise unremarkable. Cholelithiasis. Liver and spleen are unremarkable. There is no evidence for hydronephrosis. There is some perinephric stranding on the left. There appears to be fluid tracking down along the left psoas muscle to the level of the bladder. Abnormal soft tissue thickening across the lower abdominal and anterior pelvic wall. There is abnormal fluid collection in the and lower abdomen and pelvis. This of uncertain etiology but may represent a hemorrhage or hematoma surrounding the bladder. Clinical correlation is required. There is a Duong catheter in the bladder. Impression Abnormal fluid collection in the pelvis which appear to surround the bladder. This may represent hemorrhage or hematoma. Clinical correlation required to exclude bladder rupture. No free air is present to suggest bladder rupture. Abnormal soft tissue density noted along the anterior abdominal wall of the lower abdomen and pelvis. Stable appearance subcutaneous hemorrhage or hematoma. Clinical correlation required to exclude trauma. <MYCVCSECTION> Critical Value Communications 10/12/18 22:30 Call Doctor Regarding Above results, called Dr. Pastrana on 10/12 22:29 (-04:00)
[2018-10-12] MEDS: SODIUM CHLORIDE 0.9% 1,000 ML IV SCH (22:46)
[2018-10-12] MEDS ORDERED: ONDANSETRON 4 MG/2 ML VIAL IVP PRN (23:03)
[2018-10-12] MEDS ORDERED: NALOXONE 0.4 MG/ML 1 ML VIAL IV PRN (23:03)
[2018-10-13] MEDS ORDERED: SODIUM POLYSTYRENE SULFONATE 15 GM/60 ML BOTTLE PO ONE (05:00)
--- NOTE | 2018-10-13 05:06 | P.HPIM ---
History of Present Illness H&P Date: 10/13/18 The patient is a 73 yo M with a PMH of dementia, Afib (on Coumadin), CHF, Hx of DVT, HLD, and HTN who presented to the ED for suprapubic pain and inability to pass urine. The history was supplemented by at bedside. The patient suffered a trauma when he fell through the floor of his barn 10 days ago, after which he developed a large R leg hematoma requiring evacuation and inpatient admission with discharge w/ 1 week ago. The patient then notes that he was in his usual state of health when he noticed a sharp suprapubic pain earlier today along with not having passed urine for 1-2 days. He had been following with his PCP who was monitoring his kidney function and had advised him to go to the ED if he continues to not be able to pass urine. The patient subsequently presented to the ED. At time of the interview, the patient reported that his pain had resolved completely. He otherwise denied fever, chills, nausea, vomiting, diarrhea, chest pain, or SOB. The patient underwent an extensive evaluation in the ED w/ CT Abd/Pelvis showing a fluid collection surrounding the bladder w/ possible hematoma, no free air, though unable to rule out bladder rupture. BMP revealed a K of 6.1, BUN 71, and Cr of 6.34 (previously 1.17 4 days prior). WBC count was elevated at 13.0. A dennis was placed which drained grossly bloody urine which subsequently became clear. Review of Systems Pertinent positives and negatives as discussed in HPI, a complete review of systems was performed and all other systems are negative. Past Medical History Past Medical History: Atrial Fibrillation, Cancer, Heart Failure, Deep Vein Thrombosis (DVT), Hyperlipidemia, Hypertension, Osteoarthritis (OA), Pulmonary Embolus (PE), Thyroid Disorder, Vascular Disorder Additional Past Medical History / Comment(s): THYROID CANCER with surgery/radio active tablets, bilateral lower leg cellulitis 2016, varicose veins, past DVTs and PEs, short term memory problems, episodes of hypotension, hiatal hernia, gastritis. Insomnia. Depression. Atrial fibrillation. History of Any Multi-Drug Resistant Organisms: None Reported Past Surgical History: Cardiac Valve Replacement, Heart Catheterization, Joint Replacement Additional Past Surgical History / Comment(s): Thyroidectomy, total left knee replacement, JAYDE/CVN, 09/29/16 aortic valve replacement with bovine valve and mitral valve repair, mediastinal lymph node biopsy, sternal chest wound debridement/ wound vac/sternotomy and muscle straps, COLONOSCOPY, EGD, bilateral cataract removals and L eye was injured requirin surgery to remove blood. Past Anesthesia/Blood Transfusion Reactions: No Reported Reaction Additional Past Anesthesia/Blood Transfusion Reaction / Comment(s): Pt has received blood in past without reaction. Past Psychological History: Depression Additional Psychological History / Comment(s): and lives in the family home with the . 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 No experience. No new animals Smoking Status: Former smoker Past Alcohol Use History: Rare Additional Past Alcohol Use History / Comment(s): SMOKED 3 PPD. Started smoking in 1959 and QUIT SMOKING 1979. Pt smoked cigars on and off from 1991 until 1999. Past Drug Use History: None Reported - Past Family History Father Family Medical History: Coronary Artery Disease (CAD) Additional Family Medical History / Comment(s): Father at the age pf 76yrs from heart problems. Mother Family Medical History: Vascular Disorder Additional Family Medical History / Comment(s): Mother had varicosities. She lived to be 92 yrs old. Brother(s) Family Medical History: Cancer Additional Family Medical History / Comment(s): LIVER CA. BLOOD CLOT. Medications and Allergies Home Medications Medication Instructions Recorded Confirmed Type Spironolactone [Aldactone] 25 mg PO DAILY #7 tab 01/03/17 10/12/18 Rx Aspirin 81 mg PO DAILY 06/07/17 10/12/18 History Atorvastatin Calcium [Lipitor] 10 mg PO DAILY 06/07/17 10/12/18 History Ferrous Sulfate [Iron (65 MG 325 mg PO DAILY 06/07/17 10/12/18 History Elemental)] Donepezil [Aricept] 5 mg PO DAILY 10/05/18 10/12/18 History Levothyroxine Sodium [Synthroid] 150 mcg PO DAILY@0600 10/05/18 10/12/18 History Methylphenidate HCl [Ritalin] 10 mg PO BID@0700,1400 10/05/18 10/12/18 History Metoprolol Tartrate 25 mg PO BID@0700,1400 10/05/18 10/12/18 History Venlafaxine HCl ER [Effexor XR] 75 mg PO DAILY 10/05/18 10/12/18 History Warfarin Sodium [Coumadin] 4.5 mg PO DAILY 10/05/18 10/12/18 History Cefadroxil [Duricef] 500 mg PO Q12HR #14 cap 10/10/18 10/12/18 Rx Furosemide [Lasix] 40 mg PO DAILY 10/12/18 10/12/18 History Allergies Allergy/AdvReac Type Severity Reaction Status Date / Time No Known Allergies Allergy Verified 10/12/18 20:49 Physical Exam Vitals: Vital Signs Temp Pulse Resp BP Pulse Ox 10/13/18 01:00 85 17 125/75 96 10/13/18 00:00 89 20 135/75 96 10/12/18 23:14 84 18 130/84 96 10/12/18 23:00 84 24 128/79 98 10/12/18 22:46 82 18 128/79 100 10/12/18 22:23 83 18 114/76 99 10/12/18 22:00 85 22 119/70 98 10/12/18 21:18 84 20 117/74 98 10/12/18 20:23 98 F 83 18 119/74 97 Intake and Output 10/12/18 10/12/18 10/13/18 14:59 22:59 06:59 Output Total 1620 1400 Balance -1620 -1400 Output: Urine 1620 1400 Other: Weight 102.058 kg General: non toxic, no distress, appears at stated age, obese Derm: RLE dressing in place, clean, dry, no unusual ecchymoses, warm, dry Head: atraumatic, normocephalic, symmetric Eyes: EOMI, no lid lag, anicteric sclera, pupils equal round reactive to light ENT: Nose and ears atraumatic, no thrush, no pharyngeal erythema Neck: No thyromegaly, no cervical lymphadenopathy, trachea midline, supple Mouth: no lip lesion, mucus membranes moist Cardiovascular: S1S2 irregularly irregular, no murmur, positive posterior tibial pulse bilateral, no edema, capillary refill less than 2 seconds Lungs: CTA bilateral, no rhonchi, no rales , no accessory muscle use Abdominal: soft, nontender to palpation, no guarding, no appreciable organomegaly, normal bowel sounds, somewhat distended Ext: no gross muscle atrophy, muscle strength 5 out of 5 in all 4 extremities grossly, no contractures, Neuro: CN II-XI grossly intact, light touch intact all 4 extremities, finger to nose within normal limits, Psych: Alert, oriented, appropriate affect Results CBC & Chem 7: 10/12/18 21:10 10/12/18 21:10 Labs: Abnormal Lab Results - Last 24 Hours (Table) 10/12/18 10/12/18 10/12/18 Range/Units 21:10 21:10 21:10 WBC 13.0 H (3.8-10.6) k/uL RBC 3.71 L (4.30-5.90) m/uL Hgb 11.3 L (13.0-17.5) gm/dL Hct 34.2 L (39.0-53.0) % Neutrophils # 11.2 H (1.3-7.7) k/uL Lymphocytes # 0.8 L (1.0-4.8) k/uL Sodium 133 L (137-145) mmol/L Potassium 6.1 H* (3.5-5.1) mmol/L Carbon Dioxide 20 L (22-30) mmol/L BUN 71 H (9-20) mg/dL Creatinine 6.34 H (0.66-1.25) mg/dL Glucose 144 H (74-99) mg/dL Calcium 7.8 L (8.4-10.2) mg/dL Lipase 393 H (23-300) U/L Urine RBC >182 H (0-5) /hpf Urine WBC 118 H (0-5) /hpf Thrombosis Risk Factor Assmnt - Choose All That Apply Any of the Below Risk Factors Present?: Yes Each Factor Represents 1 point: Obesity (BMI >25) Other Risk Factors: Yes Each Risk Factor Represents 3 Points: Age 75 years or older Thrombosis Risk Factor Assessment Total Risk Factor Score: 4 Thrombosis Risk Factor Assessment Level: Moderate Risk Assessment and Plan Plan: Acute kidney failure due to bladder outlet obstruction from suspected pelvic hematoma -Monitor BMP -Urology and Gen Surg consulted -C/w dennis for now -Monitor urine output -Follow-up urine culture Afib (on Coumadin) -Hgb stable at 11.3 -Will hold for now in setting of high suspicious of hematoma -Received a dose yesterday -Cardiac monitoring Hyperkalemia -Received Calcium gluconate, Insulin, and Dextrose in ED -Will give 30 g of Kayexalate -Monitor BMP -Cardiac monitoring HLD, HTN -Resume home medications The patient is admitted with an anticipated greater than 2 midnight stay for evaluation of acute renal failure. CODE STATUS:Full Code Discussed with: Patient Anticipated discharge date: 10/15/[address]: Home A total of 35 minutes was spent on the care of this complex patient more than 50% of the time was spent in counseling and care coordination.
[2018-10-13] MEDS: LEVOTHYROXINE 75 MCG TAB PO SCH (08:21)
[2018-10-13] MEDS: ATORVASTATIN 10 MG TAB PO SCH (08:21)
[2018-10-13 10:16] LABS: Basophils % (A) 0 %; Eosinophils # (A) 0.4 k/uL (0-0.7); Eosinophils % (A) 4 %; HCT 29.9 % (39.0-53.0); Lymphocytes # (A) 0.6 k/uL (1.0-4.8); Lymphocytes % (A) 6 %; MCH 30.1 pg (25.0-35.0); MCHC 32.9 g/dL (31.0-37.0); MCV 91.6 fL (80.0-100.0); Mean Platelet Volume 7.4; Monocytes # (A) 0.6 k/uL (0-1.0); Monocytes % (A) 6 %; Neutrophils # (A) 8.1 k/uL (1.3-7.7); Neutrophils % (A) 83 %; Platelet Count 388 k/uL (150-450); RBC 3.27 m/uL (4.30-5.90); WBC 9.8 k/uL (3.8-10.6)
[2018-10-13 10:16] LABS: Calcium 7.6 mg/dL (8.4-10.2); Potassium 4.8 mmol/L (3.5-5.1)
--- NOTE | 2018-10-13 10:25 | FL ---
EXAMINATION TYPE: FL cystogram DATE OF EXAM: 10/13/2018 COMPARISON: None HISTORY: Free fluid within pelvis, blood TECHNIQUE: Pulmonary security developer film was obtained. Under fluoroscopic observation contrast was administere d through the previously placed Duong catheter. Overhead radiographs were obtained. 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 There is some trabeculation present. At approximately 10 0 mL free spill of the contrast from the superior right lateral urinary bladder is evident. No additi onal contrast was administered. Multiple imaging was performed. The urinary bladder was drained throu gh the previously placed Duong catheter complete emptying of the urinary bladder with retention of th e contrast extravasated. Under real-time observation with fluoroscopy extravasated contrast appears t o disperse freely within the pelvis following drainage. IMPRESSION: 1. Extravasation of contrast from the superior right urinary bladder into the intraperitoneal pelvis . 2. Preliminary results were provided to Dr. Lim by Dr. Mata at the time of the procedure.
[2018-10-13 10:27] LABS: HGB 9.8 gm/dL (13.0-17.5)
--- NOTE | 2018-10-13 11:27 | P.GSCN ---
History of Present Illness Consult date: 10/13/18 Reason for Consult: Perivesical Fluid Collection Requesting physician: Duong Nix History of present illness: The patient is a 73-year-old white male with a history of BPH. All through his floor on 09/30/2018. He developed a hematoma of the leg, which required incision and drainage on 10/05/2018. He experienced difficulty voiding following the fall, and he presented to the emergency room yesterday evening stating that he had not voided for 2 days. A computed tomography scan of the abdomen and pelvis was obtained, revealing intraperitoneal fluid, left perinephric stranding, and fluid surrounding the bladder. A Duong catheter was placed, and the return of urine was initially bloody but subsequently cleared. Review of Systems - Constitutional Denies chills, Denies fever - Gastrointestinal Reports abdominal pain, Denies nausea, Denies vomiting - Genitourinary Reports urinary hesitancy Past Medical History Past Medical History: Atrial Fibrillation, Cancer, Heart Failure, Deep Vein Thrombosis (DVT), Hyperlipidemia, Hypertension, Osteoarthritis (OA), Pulmonary Embolus (PE), Thyroid Disorder, Vascular Disorder Additional Past Medical History / Comment(s): THYROID CANCER with surgery/radio active tablets, bilateral lower leg cellulitis 2015, varicose veins, past DVTs and PEs, short term memory problems, episodes of hypotension, hiatal hernia, gastritis. Insomnia. Depression. Atrial fibrillation. History of Any Multi-Drug Resistant Organisms: None Reported Past Surgical History: Cardiac Valve Replacement, Heart Catheterization, Joint Replacement Additional Past Surgical History / Comment(s): Thyroidectomy, total left knee replacement, JAYDE/CVN, 09/29/16 aortic valve replacement with bovine valve and mitral valve repair, mediastinal lymph node biopsy, sternal chest wound debridement/ wound vac/sternotomy and muscle straps, COLONOSCOPY, EGD, bilateral cataract removals and L eye was injured requirin surgery to remove blood. Past Anesthesia/Blood Transfusion Reactions: No Reported Reaction Additional Past Anesthesia/Blood Transfusion Reaction / Comm: Pt has received blood in past without reaction. Past Psychological History: Depression Additional Psychological History / Comment(s): and lives in the family home with the . 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 No experience. No new animals Smoking Status: Former smoker Past Alcohol Use History: Rare Additional Past Alcohol Use History / Comment(s): SMOKED 3 PPD. Started smoking in 1959 and QUIT SMOKING 1979. Pt smoked cigars on and off from 1991 until 1999. Past Drug Use History: None Reported - Past Family History Father Family Medical History: Coronary Artery Disease (CAD) Additional Family Medical History / Comment(s): Father at the age pf 76yrs from heart problems. Mother Family Medical History: Vascular Disorder Additional Family Medical History / Comment(s): Mother had varicosities. She lived to be 92 yrs old. Brother(s) Family Medical History: Cancer Additional Family Medical History / Comment(s): LIVER CA. BLOOD CLOT. Medications and Allergies Home Medications Medication Instructions Recorded Confirmed Type Spironolactone [Aldactone] 25 mg PO DAILY #7 tab 01/03/17 10/12/18 Rx Aspirin 81 mg PO DAILY 06/07/17 10/12/18 History Atorvastatin Calcium [Lipitor] 10 mg PO DAILY 06/07/17 10/12/18 History Ferrous Sulfate [Iron (65 MG 325 mg PO DAILY 06/07/17 10/12/18 History Elemental)] Donepezil [Aricept] 5 mg PO DAILY 10/05/18 10/12/18 History Levothyroxine Sodium [Synthroid] 150 mcg PO DAILY@0600 10/05/18 10/12/18 History Methylphenidate HCl [Ritalin] 10 mg PO BID@0700,1400 10/05/18 10/12/18 History Metoprolol Tartrate 25 mg PO BID@0700,1400 10/05/18 10/12/18 History Venlafaxine HCl ER [Effexor XR] 75 mg PO DAILY 10/05/18 10/12/18 History Warfarin Sodium [Coumadin] 4.5 mg PO DAILY 10/05/18 10/12/18 History Cefadroxil [Duricef] 500 mg PO Q12HR #14 cap 10/10/18 10/12/18 Rx Furosemide [Lasix] 40 mg PO DAILY 10/12/18 10/12/18 History Allergies Allergy/AdvReac Type Severity Reaction Status Date / Time No Known Allergies Allergy Verified 10/12/18 20:49 Surgical - Exam Vital Signs Temp Pulse Resp BP Pulse Ox 98 F 83 18 119/74 97 10/12/18 20:23 10/12/18 20:23 10/12/18 20:23 10/12/18 20:23 10/12/18 20:23 - General well developed, well nourished, no distress - Respiratory normal respiratory effort - Abdomen Abdomen: soft, tender (Mild right lower quadrant tenderness), no guarding, no rigid, no rebound - Genitourinary normal penis with no external lesions, testicles non-tender, other (No blood at urethral meatus) - Psychiatric oriented to time, oriented to person, oriented to place, speech is normal, memory intact Results - Labs 10/13/18 08:53 10/13/18 09:33 Abnormal Lab Results - Last 24 Hours (Table) 10/12/18 10/12/18 10/12/18 Range/Units 21:10 21:10 21:10 WBC 13.0 H (3.8-10.6) k/uL RBC 3.71 L (4.30-5.90) m/uL Hgb 11.3 L (13.0-17.5) gm/dL Hct 34.2 L (39.0-53.0) % Neutrophils # 11.2 H (1.3-7.7) k/uL Lymphocytes # 0.8 L (1.0-4.8) k/uL Sodium 133 L (137-145) mmol/L Potassium 6.1 H* (3.5-5.1) mmol/L Carbon Dioxide 20 L (22-30) mmol/L BUN 71 H (9-20) mg/dL Creatinine 6.34 H (0.66-1.25) mg/dL Glucose 144 H (74-99) mg/dL Calcium 7.8 L (8.4-10.2) mg/dL Lipase 393 H (23-300) U/L Urine RBC >182 H (0-5) /hpf Urine WBC 118 H (0-5) /hpf Microbiology - Last 24 Hours (Table) 10/12/18 21:10 Urine Culture - Preliminary Urine,Voided Diabetes panel 10/12/18 Range/Units 21:10 Sodium 133 L (137-145) mmol/L Potassium 6.1 H* (3.5-5.1) mmol/L Chloride 100 (98-107) mmol/L Carbon Dioxide 20 L (22-30) mmol/L BUN 71 H (9-20) mg/dL Creatinine 6.34 H (0.66-1.25) mg/dL Glucose 144 H (74-99) mg/dL Calcium 7.8 L (8.4-10.2) mg/dL AST 29 (17-59) U/L ALT 48 (21-72) U/L Alkaline Phosphatase 113 (38-126) U/L Total Protein 6.6 (6.3-8.2) g/dL Albumin 3.6 (3.5-5.0) g/dL Calcium panel 10/12/18 Range/Units 21:10 Calcium 7.8 L (8.4-10.2) mg/dL Albumin 3.6 (3.5-5.0) g/dL Pituitary panel 10/12/18 Range/Units 21:10 Sodium 133 L (137-145) mmol/L Potassium 6.1 H* (3.5-5.1) mmol/L Chloride 100 (98-107) mmol/L Carbon Dioxide 20 L (22-30) mmol/L BUN 71 H (9-20) mg/dL Creatinine 6.34 H (0.66-1.25) mg/dL Glucose 144 H (74-99) mg/dL Calcium 7.8 L (8.4-10.2) mg/dL Adrenal panel 10/12/18 Range/Units 21:10 Sodium 133 L (137-145) mmol/L Potassium 6.1 H* (3.5-5.1) mmol/L Chloride 100 (98-107) mmol/L Carbon Dioxide 20 L (22-30) mmol/L BUN 71 H (9-20) mg/dL Creatinine 6.34 H (0.66-1.25) mg/dL Glucose 144 H (74-99) mg/dL Calcium 7.8 L (8.4-10.2) mg/dL Total Bilirubin 1.2 (0.2-1.3) mg/dL AST 29 (17-59) U/L ALT 48 (21-72) U/L Alkaline Phosphatase 113 (38-126) U/L Total Protein 6.6 (6.3-8.2) g/dL Albumin 3.6 (3.5-5.0) g/dL - Imaging CT scan - abdomen: report reviewed, image reviewed Assessment and Plan (1) Laceration of bladder, initial encounter Current Visit: Yes Status: Acute Code(s): S37.23XA - LACERATION OF BLADDER, INITIAL ENCOUNTER SNOMED Code(s): 339078529 Plan: I had a lengthy discussion with the patient, explaining that the computed tomography scan findings were suggestive of an intraperitoneal bladder rupture. A cystogram was obtained and confirmed this to be the case. In view of this, he will undergo exploratory laparotomy with closure of bladder laceration. Potential risks include anesthesia, bleeding, infection, persistent leak, and de velopment of hernia. Time with Patient: Greater than 30
[2018-10-13] MEDS ORDERED: IV FLUID CONTINUATION 400 ML IV ONE (11:58)
[2018-10-13] MEDS ORDERED: LIDOCAINE 1% INJ 10MG/ML (20 ML MDV) ONE (12:25)
[2018-10-13] MEDS ORDERED: NEOSTIGMINE 1 MG/ML 10 ML VIAL ONE (12:25)
[2018-10-13] MEDS ORDERED: PROPOFOL 10 MG/ML 20 ML VIAL IV ONE (12:25)
[2018-10-13] MEDS ORDERED: GLYCOPYRROLATE 0.2 MG/ML 2 ML VIAL ONE (12:25)
[2018-10-13] MEDS ORDERED: ONDANSETRON 4 MG/2 ML VIAL ONE (12:25)
[2018-10-13] MEDS ORDERED: HYDROmorphone (PF) 1 MG/ML ONE (12:25)
[2018-10-13] MEDS ORDERED: DEXAMETHASONE SOD PHOS (MDV) 100 MG/10 ML VIAL ONE (12:25)
[2018-10-13] MEDS ORDERED: PHENYLEPHRINE-0.9% NACL SYG 1 MG/10 ML SYRINGE ONE (12:25)
[2018-10-13] MEDS ORDERED: fentaNYL (PF) 50 MCG/ML 2 ML AMP ONE (12:25)
[2018-10-13] MEDS ORDERED: ROCURONIUM BROMIDE 10 MG/ML 10 ML VIAL IV ONE (12:25)
[2018-10-13] MEDS ORDERED: ceFAZolin IN SWFI 2 GM/20 ML SYRINGE IVP STA (12:50)
[2018-10-13] MEDS ORDERED: SODIUM CHLORIDE 0.9% 1,000 ML IV ONE (13:14)
[2018-10-13] MEDS ORDERED: SODIUM CHLORIDE 0.9% 500 ML 500 ML IV ONE (13:15)
--- NOTE | 2018-10-13 14:39 | P.OP ---
Date of Procedure: 10/13/18 Preoperative Diagnosis: Intraperitoneal bladder rupture Postoperative Diagnosis: Same Procedure(s) Performed: Bladder exploration, closure of bladder laceration Anesthesia: GIANNA Surgeon: Davon Lim Statistics Manager #1: Huy Rose Estimated Blood Loss (ml): 75 IV fluids (ml): 950 Pathology: none sent Condition: stable Disposition: PACU Indications for Procedure: The patient is a 73-year-old white male who sustained a fall 2 weeks ago. Following that, he experienced voiding changes suggestive of a UTI. Several days ago, he experienced a "pop" and his felt that his urine was abnormal in appearance. He presented to the emergency room yesterday after being unable to void for 2 days. A computed tomography scan suggested an extraperitoneal bladder rupture, which was confirmed by a cystogram. He now comes for closure of the bladder laceration. Operative Findings: Rupture of bladder dome, the perivesical hematoma. Description of Procedure: The patient was taken to the operating room and placed in the supine position. The abdomen and external genitalia were prepped and draped sterilely. A 20- Hebrew Duong catheter was placed. The scalpel was used to make a midline suprapubic incision, extending to the umbilicus. The Bovie electrocautery was used to incise the subcutaneous tissues in the midline. Significant scarring was noted. Also noted was subcutaneous edema. The linea alba was incised in the midline. The space of Retzius was entered just above the pubis. A large perivesical hematoma was noted. The anterior bladder was incised in the midline using the Bovie electrocautery. The bladder was opened, and a small rupture was palpable at the anterior bladder dome. The bladder incision was extended in a cephalad direction, up to the laceration. The bladder was carefully examined, and no additional lacerations were identified. The bladder mucosa was closed using 3-0 Vicryl suture in a running fashion. The muscle was closed using 2-0 Vicryl suture in a running fashion. Perivesical tissues were then reapproximated over the cystotomy incision. The catheter was irrigated. No extravasation was noted through the cystotomy incision closure, and all of the irrigant instilled was aspirated out. Consideration was given to opening the peritoneum, but this was not felt to be necessary. A Shahriar-Esquivel drain was left within the space of Retzius. This was brought out through a separate stab incision to the left of the midline surgical incision. The drain was sutured to the skin using silk suture, and was later attached to bulb suction. The linea alba was closed using #1 double-stranded PDS suture in a running fashion. The inferior aspect of the linea alba was closed using #1 Vicryl sutures in an interrupted [id number] fashion. The skin was closed using yoli. All sponge and needle counts were correct. A sterile gauze dressing was applied over the incision. The catheter was irrigated once again, and a small clot was removed. The catheter irrigated well and was left to gravity drainage. The patient tolerated the procedure well was taken to the recovery room in stable condition.
--- NOTE | 2018-10-13 15:57 | P.GSCN ---
History of Present Illness Consult date: 10/13/18 Requesting physician: Khalida Saxena History of present illness: CHIEF COMPLAINT: Possible bladder perforation HISTORY OF PRESENT ILLNESS: The patient is a 73-year-old male presents with a very complicated history of acute renal failure with abnormal computed tomography scan for possible bladder perforation following a fall over 2 weeks ago. Patient regularly sees a urologist. His history is further complicated by recent hospitalization less than 1 week ago for a leg hematoma that was addressed by orthopedics. Patient recently reports difficulty urinating the last several days which prompted a return to the emergency room with gross hematuria. He takes Coumadin for chronic anticoagulation for aortic valvular replacement. INR on admission was less than 1.5. CT of the abdomen confirmed fluid about the bladder highly suspicious for perforation. As result of his history, Gen. surgery was consulted by the emergency room provider for bladder perforation. He denies any upper abdominal pain. No epigastric pain. Moderate discomfort noted about the bladder. PAST MEDICAL HISTORY: See list. PAST SURGICAL HISTORY: See list. MEDICATIONS: See list. ALLERGIES: See list. SOCIAL HISTORY: No illicit drug use FAMILY HISTORY: No reports of Crohn's disease or inflammatory bowel disease REVIEW OF ORGAN SYSTEMS: CONSTITUTIONAL: No fevers or chills. No recent weight loss. EYES: Denies any trouble with vision. No glasses. HEENT: No difficulties with hearing. No nosebleeds. No difficulty swallowing. RESPIRATORY: Denies pneumonia. Denies any troubles with breathing or dyspnea on exertion. CARDIOVASCULAR: Past chest pain, palpitations, or recent heart attacks. History of atrial fibrillation. Has hypertension and hyperlipidemia GASTROINTESTINAL: Denies fatty food intolerance. Denies change in bowel habits and gas bloat. GENITOURINARY: Has blood in urine or increased urinary frequency. NEUROLOGICAL: Denies any numbness or tingling along the distal extremities. No seizure disorders or headaches. MUSCULOSKELETAL: Has back pain, stiffness or joint arthritis. SKIN: No current skin cancer. No rash. PSYCHIATRIC: Has depression. No active suicidal thoughts. Has ADD ENDOCRINE: Past history of thyroid cancer. Denies any blood sugar glucose intolerance. HEME/LYMPHATIC: Denies any lumps and bumps around the neck. Chronic blood thinners, Coumadin. Past history of DVT including pulmonary embolism ALLERGY/IMMUNOLOGY: No immunoglobulin therapy. No immune deficiencies. BREAST: Denies current breast lumps, pain or nipple discharge. PHYSICAL EXAM: VITALS: Reviewed CONSTITUTIONAL: Well developed and in no acute distress. EYES: Conjuctivae without sclera icterus. Extraocular movements grossly intact. HEAD, EARS, NOSE, THROAT: Moist buccal mucosa. Head is atraumatic, normocephalic. Hears conversational speech. No nasal drainage. NECK: Supple. No JV distention. No thyroidomegaly. RESPIRATORY: Non-labored respirations and equal bilateral excursions. No gross wheezes. CARDIOVASCULAR: Irregular rate and rhythm. Palpable 2+ radial pulses. ABDOMEN: No hepatomegaly. Soft. Nondistended. No epigastric or bilateral upper abdominal pain. No ecchymosis along the upper abdomen. : Duong catheter present with gross hematuria. LYMPH: No neck lymphadenopathy. MUSCULOSKELETAL: Nail and fingers with good capillary refill. No clubbing cyanosis. SKIN: Warm and well perfused with good skin turgor. Moderate ecchymosis along the right distal forearm NEUROLOGIC: Cranial nerves I through XII grossly intact. No focal or lateralizing signs. PSYCH: Appropriate affect. Alert and oriented to person, place and time. CLINCAL LABS: Reviewed with INR less than 1.5. Hemoglobin dropped from over 11- 9. RADIOLOGY: Report reviewed IMAGING: Independently reviewed without fluid along the spleen or liver upper abdomen. Fluid identified along the pelvis and noncontrast study. ASSESSMENT: 1. Abnormal computed tomography scan 2. Gross hematuria with bladder perforation 3. Past history over 2 weeks fall with history of leg hematoma PLAN: 1. I was personally contacted by urologist Dr. Lim after completion of cystoscopy regarding any need for trauma laparotomy. Patient's symptoms limited to pelvis without any upper abdominal pain or symptoms. I discussed I will be available if needed for any additional exploration during bladder repair. 2. Duong catheter management per urology. 3. Monitor hemoglobin for acute blood loss anemia following bladder perforation 4. Anticoagulant management per medicine including urology. Thank you for this kind consultation. Past Medical History Past Medical History: Atrial Fibrillation, Cancer, Heart Failure, Deep Vein Thrombosis (DVT), Hyperlipidemia, Hypertension, Osteoarthritis (OA), Pulmonary Embolus (PE), Thyroid Disorder, Vascular Disorder Additional Past Medical History / Comment(s): THYROID CANCER with surgery/radio active tablets, bilateral lower leg cellulitis 2016, varicose veins, past DVTs and PEs, short term memory problems, episodes of hypotension, hiatal hernia, gastritis. Insomnia. Depression. Atrial fibrillation. History of Any Multi-Drug Resistant Organisms: None Reported Past Surgical History: Cardiac Valve Replacement, Heart Catheterization, Joint Replacement Additional Past Surgical History / Comment(s): Thyroidectomy, total left knee replacement, JAYDE/CVN, 09/29/16 aortic valve replacement with bovine valve and mitral valve repair, mediastinal lymph node biopsy, sternal chest wound debridement/ wound vac/sternotomy and muscle straps, COLONOSCOPY, EGD, bilateral cataract removals and L eye was injured requirin surgery to remove blood. Past Anesthesia/Blood Transfusion Reactions: No Reported Reaction Additional Past Anesthesia/Blood Transfusion Reaction / Comm: Pt has received blood in past without reaction. Past Psychological History: Depression Additional Psychological History / Comment(s): and lives in the family home with the . 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 No experience. No new animals Smoking Status: Former smoker Past Alcohol Use History: Rare Additional Past Alcohol Use History / Comment(s): SMOKED 3 PPD. Started smoking in 1959 and QUIT SMOKING 1979. Pt smoked cigars on and off from 1991 until 1999. Past Drug Use History: None Reported - Past Family History Father Family Medical History: Coronary Artery Disease (CAD) Additional Family Medical History / Comment(s): Father at the age pf 76yrs from heart problems. Mother Family Medical History: Vascular Disorder Additional Family Medical History / Comment(s): Mother had varicosities. She lived to be 92 yrs old. Brother(s) Family Medical History: Cancer Additional Family Medical History / Comment(s): LIVER CA. BLOOD CLOT. Medications and Allergies Home Medications Medication Instructions Recorded Confirmed Type Spironolactone [Aldactone] 25 mg PO DAILY #7 tab 01/03/17 10/12/18 Rx Aspirin 81 mg PO DAILY 06/07/17 10/12/18 History Atorvastatin Calcium [Lipitor] 10 mg PO DAILY 06/07/17 10/12/18 History Ferrous Sulfate [Iron (65 MG 325 mg PO DAILY 06/07/17 10/12/18 History Elemental)] Donepezil [Aricept] 5 mg PO DAILY 10/05/18 10/12/18 History Levothyroxine Sodium [Synthroid] 150 mcg PO DAILY@0600 10/05/18 10/12/18 History Methylphenidate HCl [Ritalin] 10 mg PO BID@0700,1400 10/05/18 10/12/18 History Metoprolol Tartrate 25 mg PO BID@0700,1400 10/05/18 10/12/18 History Venlafaxine HCl ER [Effexor XR] 75 mg PO DAILY 10/05/18 10/12/18 History Warfarin Sodium [Coumadin] 4.5 mg PO DAILY 10/05/18 10/12/18 History Cefadroxil [Duricef] 500 mg PO Q12HR #14 cap 10/10/18 10/12/18 Rx Furosemide [Lasix] 40 mg PO DAILY 10/12/18 10/12/18 History Allergies Allergy/AdvReac Type Severity Reaction Status Date / Time No Known Allergies Allergy Verified 10/12/18 20:49 Surgical - Exam Vital Signs Temp Pulse Resp BP Pulse Ox 98 F 83 18 119/74 97 10/12/18 20:23 10/12/18 20:23 10/12/18 20:23 10/12/18 20:23 10/12/18 20:23 Results - Labs 10/13/18 08:53 10/13/18 09:33 Abnormal Lab Results - Last 24 Hours (Table) 10/12/18 10/12/18 10/12/18 Range/Units 21:10 21:10 21:10 WBC 13.0 H (3.8-10.6) k/uL RBC 3.71 L (4.30-5.90) m/uL Hgb 11.3 L (13.0-17.5) gm/dL Hct 34.2 L (39.0-53.0) % Neutrophils # 11.2 H (1.3-7.7) k/uL Lymphocytes # 0.8 L (1.0-4.8) k/uL Sodium 133 L (137-145) mmol/L Potassium 6.1 H* (3.5-5.1) mmol/L Carbon Dioxide 20 L (22-30) mmol/L BUN 71 H (9-20) mg/dL Creatinine 6.34 H (0.66-1.25) mg/dL Glucose 144 H (74-99) mg/dL Calcium 7.8 L (8.4-10.2) mg/dL Lipase 393 H (23-300) U/L Urine RBC >182 H (0-5) /hpf Urine WBC 118 H (0-5) /hpf 10/13/18 10/13/18 Range/Units 08:53 09:33 WBC (3.8-10.6) k/uL RBC 3.27 L (4.30-5.90) m/uL Hgb 9.8 L D (13.0-17.5) gm/dL Hct 29.9 L (39.0-53.0) % Neutrophils # 8.1 H (1.3-7.7) k/uL Lymphocytes # 0.6 L (1.0-4.8) k/uL Sodium 136 L (137-145) mmol/L Potassium (3.5-5.1) mmol/L Carbon Dioxide 21 L (22-30) mmol/L BUN 43 H (9-20) mg/dL Creatinine 2.33 H (0.66-1.25) mg/dL Glucose (74-99) mg/dL Calcium 7.6 L (8.4-10.2) mg/dL Lipase (23-300) U/L Urine RBC (0-5) /hpf Urine WBC (0-5) /hpf Microbiology - Last 24 Hours (Table) 10/12/18 21:10 Urine Culture - Preliminary Urine,Voided Diabetes panel 10/12/18 10/13/18 Range/Units 21:10 09:33 Sodium 133 L 136 L (137-145) mmol/L Potassium 6.1 H* 4.8 (3.5-5.1) mmol/L Chloride 100 106 (98-107) mmol/L Carbon Dioxide 20 L 21 L (22-30) mmol/L BUN 71 H 43 H (9-20) mg/dL Creatinine 6.34 H 2.33 H (0.66-1.25) mg/dL Glucose 144 H 85 (74-99) mg/dL Calcium 7.8 L 7.6 L (8.4-10.2) mg/dL AST 29 (17-59) U/L ALT 48 (21-72) U/L Alkaline Phosphatase 113 (38-126) U/L Total Protein 6.6 (6.3-8.2) g/dL Albumin 3.6 (3.5-5.0) g/dL Calcium panel 10/12/18 10/13/18 Range/Units 21:10 09:33 Calcium 7.8 L 7.6 L (8.4-10.2) mg/dL Albumin 3.6 (3.5-5.0) g/dL Pituitary panel 10/12/18 10/13/18 Range/Units 21:10 09:33 Sodium 133 L 136 L (137-145) mmol/L Potassium 6.1 H* 4.8 (3.5-5.1) mmol/L Chloride 100 106 (98-107) mmol/L Carbon Dioxide 20 L 21 L (22-30) mmol/L BUN 71 H 43 H (9-20) mg/dL Creatinine 6.34 H 2.33 H (0.66-1.25) mg/dL Glucose 144 H 85 (74-99) mg/dL Calcium 7.8 L 7.6 L (8.4-10.2) mg/dL Adrenal panel 10/12/18 10/13/18 Range/Units 21:10 09:33 Sodium 133 L 136 L (137-145) mmol/L Potassium 6.1 H* 4.8 (3.5-5.1) mmol/L Chloride 100 106 (98-107) mmol/L Carbon Dioxide 20 L 21 L (22-30) mmol/L BUN 71 H 43 H (9-20) mg/dL Creatinine 6.34 H 2.33 H (0.66-1.25) mg/dL Glucose 144 H 85 (74-99) mg/dL Calcium 7.8 L 7.6 L (8.4-10.2) mg/dL Total Bilirubin 1.2 (0.2-1.3) mg/dL AST 29 (17-59) U/L ALT 48 (21-72) U/L Alkaline Phosphatase 113 (38-126) U/L Total Protein 6.6 (6.3-8.2) g/dL Albumin 3.6 (3.5-5.0) g/dL - Imaging CT scan - abdomen: report reviewed, image reviewed CT scan - pelvis: report reviewed, image reviewed Assessment and Plan (1) Acute renal failure Current Visit: Yes Status: Acute Code(s): N17.9 - ACUTE KIDNEY FAILURE, UNSPECIFIED SNOMED Code(s): 23441354 (2) Gross hematuria Current Visit: Yes Status: Acute Code(s): R31.0 - GROSS HEMATURIA SNOMED Code(s): 440887822 (3) Laceration of bladder, initial encounter Current Visit: Yes Status: Acute Code(s): S37.23XA - LACERATION OF BLADDER, INITIAL ENCOUNTER SNOMED Code(s): 958472234 (4) Urinary retention Current Visit: Yes Status: Acute Code(s): R33.9 - RETENTION OF URINE, UNSPECIFIED SNOMED Code(s): 555907500 (5) Fall with injury Current Visit: No Status: Acute Code(s): W19.XXXA - UNSPECIFIED FALL, INITIAL ENCOUNTER SNOMED Code(s): 475031765 (6) Hematoma of right lower extremity Current Visit: No Status: Acute Code(s): S80.11XA - CONTUSION OF RIGHT LOWER LEG, INITIAL ENCOUNTER SNOMED Code(s): 097267406 (7) Histoplasmosis Current Visit: No Status: Acute Code(s): B39.9 - HISTOPLASMOSIS, UNSPECIFIED SNOMED Code(s): 03715663 (8) History of deep venous thrombosis (DVT) of distal vein of right lower extremity Current Visit: No Status: Acute Code(s): Z86.718 - PERSONAL HISTORY OF OTHER VENOUS THROMBOSIS AND EMBOLISM SNOMED Code(s): 171744376 (9) Paroxysmal atrial fibrillation Current Visit: No Status: Acute Code(s): I48.0 - PAROXYSMAL ATRIAL FIBRILLATION SNOMED Code(s): 339396419 (10) Acute blood loss anemia Current Visit: Yes Status: Acute Code(s): D62 - ACUTE POSTHEMORRHAGIC ANEMIA SNOMED Code(s): 312521687
[2018-10-13] MEDS: SODIUM CHLORIDE 0.9% 1,000 ML IV SCH ×2 (17:33→21:28)
[2018-10-13] MEDS: MORPHINE SULFATE 4 MG/ML SYRINGE IV PRN (19:19)
[2018-10-13 19:27] LABS: Appearance,Urine Cloudy (Clear); Bilirubin,Urine Negative (Negative); Blood,Urine Large (Negative); Color,Urine Red; Glucose,Urine (UA) Negative (Negative); Ketones,Urine Trace (Negative); Leukocyte Esterase,Urine Moderate (Negative); Nitrite,Urine Negative (Negative); Protein,Urine 1+ (Negative); RBC,Urine >182 /hpf (0-5); Specific Gravity,Urine 1.018 (1.001-1.035); Squamous Epithelial Cell,Urine 4 /hpf (0-4); Urobilinogen,Urine <2.0 mg/dL (<2.0); WBC,Urine 15 /hpf (0-5)
[2018-10-13] MEDS: ceFAZolin IN SWFI 2 GM/20 ML SYRINGE IVP SCH (21:27)
[2018-10-14] MEDS: ATORVASTATIN 10 MG TAB PO SCH (07:51)
[2018-10-14] MEDS: LEVOTHYROXINE 75 MCG TAB PO SCH (07:51)
[2018-10-14 08:16] LABS: Calcium 7.5 mg/dL (8.4-10.2)
[2018-10-14] MEDS: ceFAZolin IN SWFI 2 GM/20 ML SYRINGE IVP SCH ×2 (08:28→20:30)
[2018-10-14] MEDS: MORPHINE SULFATE 4 MG/ML SYRINGE IV PRN (08:41)
[2018-10-14 08:49] LABS: Basophils % (A) 0 %; Eosinophils % (A) 0 %; HCT 28.2 % (39.0-53.0); Lymphocytes # (A) 0.6 k/uL (1.0-4.8); Lymphocytes % (A) 5 %; MCH 29.4 pg (25.0-35.0); Mean Platelet Volume 7.7; Monocytes # (A) 0.8 k/uL (0-1.0); Monocytes % (A) 7 %; Neutrophils # (A) 10.6 k/uL (1.3-7.7); Neutrophils % (A) 87 %; Platelet Count 341 k/uL (150-450); RBC 3.07 m/uL (4.30-5.90); WBC 12.2 k/uL (3.8-10.6)
[2018-10-14] MEDS ORDERED: KETOROLAC 30 MG/ML 1 ML VIAL IVP PRN (09:53)
--- NOTE | 2018-10-14 10:00 | P.PN ---
Subjective Progress Note Date: 10/14/18 Principal diagnosis: POD #1, s/p closure of bladder rupture Mr. Stevenson states that he is feeling much better today. He states that he had difficulty breathing when he was admitted, but currently denies shortness of breath. He reports mild incisional discomfort. He denies chest pain. His appetite was poor. He is passing scant flatus. Objective - Vital Signs Vital signs: Vital Signs Temp 97.9 F 10/14/18 08:02 Pulse 93 10/14/18 08:02 Resp 14 10/14/18 08:02 BP 107/71 10/14/18 08:02 Pulse Ox 98 10/14/18 08:02 Intake & Output 10/13/18 10/14/18 10/14/18 18:59 06:59 18:59 Intake Total 1625 950 Output Total 1775 4215 285 Balance -150 -3265 -285 Intake: IV 1100 Intake, IV Titration 525 600 Amount Calcium Gluconate 1 gm In 100 Sodium Chloride 0.9% 100 ml @ 400 mls/hr IVPB ONCE ONE Rx#:[id number] Sodium Chloride 0.9% 1, 425 600 000 ml @ 75 mls/hr IV . [id number] [facility] Rx#:[id number] Oral 350 Output: Drainage 15 10 Left Abdomen 15 10 Urine 1700 4200 275 Duong Catheter 2100 Estimated Blood Loss 75 Other: Voiding Method Indwelling Catheter Indwelling Catheter Indwelling Catheter - Constitutional General appearance: Present: average body habitus, cooperative, no acute distress - Gastrointestinal Gastrointestinal Comment(s): Soft, non-distended. Dressing dry and intact. - Psychiatric Psychiatric: Present: A&O x's 3 - Labs CBC & Chem 7: 10/14/18 06:45 10/14/18 06:45 Labs: Abnormal Lab Results - Last 24 Hours (Table) 10/13/18 10/13/18 10/13/18 Range/Units 08:53 09:33 18:20 WBC (3.8-10.6) k/uL RBC 3.27 L (4.30-5.90) m/uL Hgb 9.8 L D (13.0-17.5) gm/dL Hct 29.9 L (39.0-53.0) % Neutrophils # 8.1 H (1.3-7.7) k/uL Lymphocytes # 0.6 L (1.0-4.8) k/uL Sodium 136 L (137-145) mmol/L Carbon Dioxide 21 L (22-30) mmol/L BUN 43 H (9-20) mg/dL Creatinine 2.33 H (0.66-1.25) mg/dL Glucose (74-99) mg/dL Calcium 7.6 L (8.4-10.2) mg/dL Urine Protein 1+ H (Negative) Urine Ketones Trace H (Negative) Urine Blood Large H (Negative) Ur Leukocyte Esterase Moderate H (Negative) Urine RBC >182 H (0-5) /hpf Urine WBC 15 H (0-5) /hpf 10/14/18 10/14/18 Range/Units 06:45 06:45 WBC 12.2 H (3.8-10.6) k/uL RBC 3.07 L (4.30-5.90) m/uL Hgb 9.0 L (13.0-17.5) gm/dL Hct 28.2 L (39.0-53.0) % Neutrophils # 10.6 H (1.3-7.7) k/uL Lymphocytes # 0.6 L (1.0-4.8) k/uL Sodium 135 L (137-145) mmol/L Carbon Dioxide (22-30) mmol/L BUN 25 H (9-20) mg/dL Creatinine (0.66-1.25) mg/dL Glucose 116 H (74-99) mg/dL Calcium 7.5 L (8.4-10.2) mg/dL Urine Protein (Negative) Urine Ketones (Negative) Urine Blood (Negative) Ur Leukocyte Esterase (Negative) Urine RBC (0-5) /hpf Urine WBC (0-5) /hpf Microbiology - Last 24 Hours (Table) 10/12/18 21:10 Urine Culture - Final Urine,Voided Assessment and Plan (1) Laceration of bladder, initial encounter Current Visit: Yes Status: Acute Code(s): S37.23XA - LACERATION OF BLADDER, INITIAL ENCOUNTER SNOMED Code(s): 620706098 Plan: Mr. Stevenson's condition is stable. I have ordered Toradol, to decrease his narcotic use. I have encouraged him to ambulate with assistance. The Duong catheter is draining urine which is somewhat bloody in appearance, without clots. I have ordered subcutaneous heparin, but this will need to be held if the degree of hematuria increases.
--- NOTE | 2018-10-14 10:34 | P.NPCON ---
History of Present Illness - Reason for Consult Consult date: 10/14/18 - Chief Complaint Acute kidney injury - History of Present Illness This is a 73-year-old male seen in consultation because of acute kidney injury after a fall and rupture of his bladder. His creatinine has improved after surgery to repair his bladder. He has a Dennis catheter is draining mildly blood-tinged urine. Has some pain in his lower abdomen from the scar surgery yesterday. Denies any fever chills cough no nausea vomiting. Has been having some minimal flatus but no bowel movement since surgery. His looks comfortable. History of present illness The patient is a 73 yo M with a PMH of dementia, Afib (on Coumadin), CHF, Hx of DVT, HLD, and HTN who presented to the ED for suprapubic pain and inability to pass urine. The history was supplemented by at bedside. The patient rodríguez ffered a trauma when he fell through the floor of his barn 10 days ago, after which he developed a large R leg hematoma requiring evacuation and inpatient admission with discharge w/ 1 week ago. The patient then notes that he was in his usual state of health when he noticed a sharp suprapubic pain earlier today along with not having passed urine for 1-2 days. He had been following with his PCP who was monitoring his kidney function and had advised him to go to the ED if he continues to not be able to pass urine. The patient subsequently presented to the ED. At time of the interview, the patient reported that his pain had resolved completely. He otherwise denied fever, chills, nausea, vomiting, diarrhea, chest pain, or SOB. The patient underwent an extensive evaluation in the ED w/ CT Abd/Pelvis showing a fluid collection surrounding the bladder w/ possible hematoma, no free air, though unable to rule out bladder rupture. BMP revealed a K of 6.1, BUN 71, and Cr of 6.34 (previously 1.17 4 days prior). WBC count was elevated at 13.0. A dennis was placed which drained grossly bloody urine which subsequently became clear. Past Medical History Past Medical History: Atrial Fibrillation, Cancer, Heart Failure, Deep Vein Thrombosis (DVT), Hyperlipidemia, Hypertension, Osteoarthritis (OA), Pulmonary Embolus (PE), Thyroid Disorder, Vascular Disorder Additional Past Medical History / Comment(s): THYROID CANCER with surgery/radio active tablets, bilateral lower leg cellulitis 2015, varicose veins, past DVTs and PEs, short term memory problems, episodes of hypotension, hiatal hernia, gastritis. Insomnia. Depression. Atrial fibrillation. History of Any Multi-Drug Resistant Organisms: None Reported Past Surgical History: Cardiac Valve Replacement, Heart Catheterization, Joint Replacement Additional Past Surgical History / Comment(s): Thyroidectomy, total left knee replacement, JAYDE/CVN, 09/29/16 aortic valve replacement with bovine valve and mitral valve repair, mediastinal lymph node biopsy, sternal chest wound debridement/ wound vac/sternotomy and muscle straps, COLONOSCOPY, EGD, bilateral cataract removals and L eye was injured requirin surgery to remove blood. Past Anesthesia/Blood Transfusion Reactions: No Reported Reaction Additional Past Anesthesia/Blood Transfusion Reaction / Comment(s): Pt has received blood in past without reaction. Past Psychological History: Depression Additional Psychological History / Comment(s): and lives in the family home with the . 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 No experience. No new animals Smoking Status: Former smoker Past Alcohol Use History: Rare Additional Past Alcohol Use History / Comment(s): SMOKED 3 PPD. Started smoking in 1959 and QUIT SMOKING 1979. Pt smoked cigars on and off from 1991 until 1999. Past Drug Use History: None Reported - Past Family History Father Family Medical History: Coronary Artery Disease (CAD) Additional Family Medical History / Comment(s): Father at the age pf 76yrs from heart problems. Mother Family Medical History: Vascular Disorder Additional Family Medical History / Comment(s): Mother had varicosities. She lived to be 92 yrs old. Brother(s) Family Medical History: Cancer Additional Family Medical History / Comment(s): LIVER CA. BLOOD CLOT. Medications and Allergies Home Medications Medication Instructions Recorded Confirmed Type Spironolactone [Aldactone] 25 mg PO DAILY #7 tab 01/03/17 10/12/18 Rx Aspirin 81 mg PO DAILY 06/07/17 10/12/18 History Atorvastatin Calcium [Lipitor] 10 mg PO DAILY 06/07/17 10/12/18 History Ferrous Sulfate [Iron (65 MG 325 mg PO DAILY 06/07/17 10/12/18 History Elemental)] Donepezil [Aricept] 5 mg PO DAILY 10/05/18 10/12/18 History Levothyroxine Sodium [Synthroid] 150 mcg PO DAILY@0600 10/05/18 10/12/18 History Methylphenidate HCl [Ritalin] 10 mg PO BID@0700,1400 10/05/18 10/12/18 History Metoprolol Tartrate 25 mg PO BID@0700,1400 10/05/18 10/12/18 History Venlafaxine HCl ER [Effexor XR] 75 mg PO DAILY 10/05/18 10/12/18 History Warfarin Sodium [Coumadin] 4.5 mg PO DAILY 10/05/18 10/12/18 History Cefadroxil [Duricef] 500 mg PO Q12HR #14 cap 10/10/18 10/12/18 Rx Furosemide [Lasix] 40 mg PO DAILY 10/12/18 10/12/18 History Allergies Allergy/AdvReac Type Severity Reaction Status Date / Time No Known Allergies Allergy Verified 10/12/18 20:49 Physical Exam Vitals: Vital Signs Temp Pulse Resp BP BP Pulse Ox 10/14/18 08:02 97.9 F 93 14 107/71 98 10/14/18 08:01 96 10/14/18 07:51 93 14 10/14/18 01:50 98.3 F 95 20 100/49 96 10/14/18 00:40 20 10/13/18 20:15 99 20 10/13/18 19:30 98.3 F 99 20 101/64 95 10/13/18 18:28 80 18 10/13/18 18:15 95 109/72 10/13/18 18:00 99 98/68 10/13/18 17:45 99 101/71 10/13/18 17:30 100 99/69 10/13/18 17:15 100 109/71 10/13/18 17:00 106 H 98/67 10/13/18 16:45 103 H 100/68 10/13/18 16:30 97.4 F L 105 H 14 102/66 95 10/13/18 16:15 109 H 22 115/63 96 10/13/18 16:00 108 H 22 116/62 95 10/13/18 15:45 110 H 22 118/73 97 10/13/18 15:30 112 H 24 121/78 97 10/13/18 15:15 114 H 25 H 148/95 97 10/13/18 15:00 122 H 30 H 138/78 97 10/13/18 14:50 98.1 F 117 H 30 H 143/82 94 L 10/13/18 12:07 98.2 F 96 18 136/70 95 Intake and Output 10/13/18 10/14/18 10/14/18 22:59 06:59 14:59 Intake Total 1000 100 Output Total 365 4200 285 Balance 635 -4100 -285 Intake: IV 150 Intake, IV Titration 600 Amount Sodium Chloride 0.9% 1, 600 000 ml @ 75 mls/hr IV . [id number] [facility] Rx#:[id number] Oral 250 100 Output: Drainage 15 10 Left Abdomen 15 10 Urine 350 4200 275 Dennis Catheter 2100 Other: Voiding Method Indwelling Catheter Indwelling Catheter On examination is awake alert oriented comfortable HEENT exam no JVP neck is supple no facial asymmetry Lungs are clear to auscultation with some diminished air entry bilaterally Heart sounds are unremarkable for any murmur rub gallop Abdomen is soft nontender he has a scar of surgery with dressing on the lower mi d abdomen Extremity exam reveals no edema His right leg is bandaged up because of hematoma from the fall. Neurologically awake alert oriented Results - Lab Results Most recent lab results Calcium 7.5 mg/dL (8.4-10.2) L 10/14/18 06:45 Magnesium 2.0 mg/dL (1.6-2.3) 10/14/18 06:45 10/14/18 06:45 10/14/18 06:45 Assessment and Plan Plan: Impression 1. Acute kidney injury from urinary leak into the intraperitoneal area because of bladder laceration secondary to a fall through a floor, creatinine went up with the reabsorption of urine. 2. Renal function improved, creatinine went down from 6.34-1.03 this morning. Electrolytes are unremarkable, good urine output 3. History of atrial fibrillation, cardiac surgery with valve repairs in the remote past with a sternal area wound dehiscence and healing with a bulge and stable chronically. 4. History of fall through a defect in the floor off his barn. 5. History of pulmonary embolism in the past Recommendation. 1. Maintain IV fluids #75 an hour. 2. Watch renal function for another day, on Toradol third this morning in an attempt to reduce his narcotics
[2018-10-14] MEDS: HEPARIN SODIUM,PORCINE 5,000 UNIT/ML 1 ML VIAL SQ SCH ×2 (11:15→20:30)
--- NOTE | 2018-10-14 14:07 | P.PN ---
Subjective Progress Note Date: 10/14/18 Patient seen and examined at bedside reports pain is moderate at this time, the patient underwent cystoscopy yesterday was discovered to have a intraperitoneal bladder rupture with closure of bladder laceration. No acute events overnight, having good urine output catheter bag appears bloody Objective - Vital Signs Vital signs: Vital Signs Temp 97.9 F 10/14/18 08:02 Pulse 93 10/14/18 08:02 Resp 14 10/14/18 08:02 BP 107/71 10/14/18 08:02 Pulse Ox 98 10/14/18 08:02 Intake & Output 10/13/18 10/14/18 10/14/18 18:59 06:59 18:59 Intake Total 1625 950 477 Output Total 1775 4215 285 Balance -150 -3265 192 Intake: IV 1100 Intake, IV Titration 525 600 Amount Calcium Gluconate 1 gm In 100 Sodium Chloride 0.9% 100 ml @ 400 mls/hr IVPB ONCE ONE Rx#:[id number] Sodium Chloride 0.9% 1, 425 600 000 ml @ 75 mls/hr IV . [id number] [facility] Rx#:[id number] Oral 350 477 Output: Drainage 15 10 Left Abdomen 15 10 Urine 1700 4200 275 Duong Catheter 2100 Estimated Blood Loss 75 Other: Voiding Method Indwelling Catheter Indwelling Catheter Indwelling Catheter - Exam Constitutional: No acute distress, conversant, pleasant Eyes: Anicteric sclerae, moist conjunctiva, no lid-lag, PERRLA ENMT: NC/AT,Oropharynx clear, no erythema, exudates Neck:Supple, FROM, no masses, or JVD, No carotid bruits; No thyromegaly Lungs: Clear to auscultation, Clear to percussion, Normal respiratory effort, no accessory muscle use Cardiovascular: Irregularly irregular, No murmurs, gallops, or rubs no peripheral edema Abdominal: Soft Nontender, nom distended, no guarding, no rebound or rigidity, Normoactive bowel sounds No hepatomegaly, No splenomegaly, No palpable mass No abdominal wall hernia noted Skin: Normal temperature, tone, texture, turgor, No induration No subcutaneous nodules, No rash, lesions, No ulcers Extremities:No digital cyanosis No clubbing, Pedal pulses intact and symmetrical Radial pulses intact and symmetrical Normal gait and station, No calf tenderness Psychiatric: Alert and oriented to person, place and time, Appropriate affect Intact judgement Neuro: Muscles Strength 5/5 in all 4 extremities, Sensation to light touch grossly present throughout, Cranial nerves II-XII grossly intact. No focal sensory deficits - Labs CBC & Chem 7: 10/14/18 06:45 10/14/18 06:45 Labs: Abnormal Lab Results - Last 24 Hours (Table) 10/13/18 10/14/18 10/14/18 Range/Units 18:20 06:45 06:45 WBC 12.2 H (3.8-10.6) k/uL RBC 3.07 L (4.30-5.90) m/uL Hgb 9.0 L (13.0-17.5) gm/dL Hct 28.2 L (39.0-53.0) % Neutrophils # 10.6 H (1.3-7.7) k/uL Lymphocytes # 0.6 L (1.0-4.8) k/uL Sodium 135 L (137-145) mmol/L BUN 25 H (9-20) mg/dL Glucose 116 H (74-99) mg/dL Calcium 7.5 L (8.4-10.2) mg/dL Urine Protein 1+ H (Negative) Urine Ketones Trace H (Negative) Urine Blood Large H (Negative) Ur Leukocyte Esterase Moderate H (Negative) Urine RBC >182 H (0-5) /hpf Urine WBC 15 H (0-5) /hpf Microbiology - Last 24 Hours (Table) 10/12/18 21:10 Urine Culture - Final Urine,Voided Assessment and Plan (1) Acute kidney injury Narrative/Plan: * Secondary to trauma sustained from a fall with subsequent bladder laceration with intraperitoneal leak * Creatinine has normalized, good urine output, electrolytes are normal hyperkalemia is resolved * Appreciate nephrology recommendations continue with IV fluids Current Visit: Yes Status: Resolved Code(s): N17.9 - ACUTE KIDNEY FAILURE, UNSPECIFIED SNOMED Code(s): 22400411 (2) Laceration of bladder Narrative/Plan: * Status post cystoscopy with closure of bladder laceration performed by Dr. Lim 10/13 Current Visit: Yes Status: Acute Code(s): S37.23XA - LACERATION OF BLADDER, INITIAL ENCOUNTER SNOMED Code(s): 604997983 (3) Gross hematuria Narrative/Plan: * Secondary to problem #2 above Current Visit: Yes Status: Acute Code(s): R31.0 - GROSS HEMATURIA SNOMED Code(s): 527472535 (4) Acute blood loss anemia Narrative/Plan: * Secondary to a bladder rupture/laceration sustained from fall, now status post cystoscopy with bladder laceration closure * Hemoglobin down proximally 2 g from presentation to 9.0 today * Patient previously on anticoagulation with Coumadin due to chronic A. fib * We'll continue to monitor Current Visit: Yes Status: Acute Code(s): D62 - ACUTE POSTHEMORRHAGIC ANEMIA SNOMED Code(s): 371432175 (5) A-fib Narrative/Plan: * INR currently subtherapeutic continue to hold Coumadin secondary to acute blood loss anemia sustained from bladder rupture/laceration * Plan to restart Coumadin tomorrow or Tuesday if hemoglobin remains stable * Continue beta ismael therapy, rate is currently controlled Current Visit: Yes Status: Acute Code(s): I48.91 - UNSPECIFIED ATRIAL FIBRILLATION SNOMED Code(s): 49279841 (6) Essential hypertension Narrative/Plan: * Blood pressure stable controlled * Resume her home antihypertensive regimen Current Visit: Yes Status: Acute Code(s): I10 - ESSENTIAL (PRIMARY) HYPERTENSION SNOMED Code(s): 19670022 (7) Hyperkalemia Narrative/Plan: * Secondary to acute kidney injury from bladder rupture/laceration * Now resolved along with acute kidney injury Current Visit: Yes Status: Resolved Code(s): E87.5 - HYPERKALEMIA SNOMED Code(s): 16392549
--- NOTE | 2018-10-14 15:44 | P.PN ---
Subjective Progress Note Date: 10/14/18 CHIEF COMPLAINT: Possible bladder perforation HISTORY OF PRESENT ILLNESS: The patient is a 73-year-old male presented with a very complicated history of acute renal failure with abnormal computed adeline ography scan for possible bladder perforation following a fall over 2 weeks ago. He had a cystoscopy yesterday and brought to the operating room by urology where he had repair of bladder perforation, 10/13/2018. He is postop day 1. He is much more comfortable today. His is at bedside and reports the patient has baseline dementia. No abdominal pain today with exception of soreness from recent surgery. ROS: No new shortness of breath. No new chest pain. No fevers or chills PHYSICAL EXAM: VITALS: Reviewed CONSTITUTIONAL: Well developed and in no acute distress. EYES: Conjuctivae without sclera icterus. Extraocular movements grossly intact. HEAD, EARS, NOSE, THROAT: Moist buccal mucosa. Head is atraumatic, normocephalic. Hears conversational speech. No nasal drainage. NECK: Supple. No JV distention. No thyroidomegaly. RESPIRATORY: Non-labored respirations and equal bilateral excursions. No gross wheezes. CARDIOVASCULAR: Irregular rate and rhythm. Palpable 2+ radial pulses. ABDOMEN: Soft. Nondistended. : Duong catheter present with gross hematuria. MUSCULOSKELETAL: Nail and fingers with good capillary refill. No clubbing cyanosis. SKIN: Warm and well perfused with good skin turgor. NEUROLOGIC: Cranial nerves I through XII grossly intact. No focal or l ateralizing signs. PSYCH: Appropriate affect. Alert and oriented to person, place and time. CLINCAL LABS: Hemoglobin dropped from 9.8-9 today. ASSESSMENT: 1. Abnormal computed tomography scan 2. Gross hematuria with bladder perforation 3. Past history over 2 weeks fall with history of leg hematoma PLAN: 1. No general surgical intervention required as primary source of intra- abdominal hematoma was from perforated bladder. 2. He has history of being on Coumadin therapy which is to be managed per primary team 3. At this time, we'll follow as needed Objective - Vital Signs Vital signs: Vital Signs Temp 98.6 F 10/14/18 14:50 Pulse 88 10/14/18 14:50 Resp 16 10/14/18 14:50 BP 102/67 10/14/18 14:50 Pulse Ox 96 10/14/18 14:50 Intake & Output 10/13/18 10/14/18 10/14/18 18:59 06:59 18:59 Intake Total 3578 918 6583 Output Total 1775 4215 935 Balance -150 -3265 67 Intake: IV 1100 Intake, IV Titration 525 600 525 Amount Calcium Gluconate 1 gm In 100 Sodium Chloride 0.9% 100 ml @ 400 mls/hr IVPB ONCE ONE Rx#:[id number] Sodium Chloride 0.9% 1, 425 600 525 000 ml @ 75 mls/hr IV . [id number] [facility] Rx#:[id number] Oral 350 477 Output: Drainage 15 10 Left Abdomen 15 10 Urine 1700 4200 925 Duong Catheter 2100 Estimated Blood Loss 75 Other: Voiding Method Indwelling Catheter Indwelling Catheter Indwelling Catheter - Labs CBC & Chem 7: 10/14/18 06:45 10/14/18 06:45 Labs: Abnormal Lab Results - Last 24 Hours (Table) 10/13/18 10/14/18 10/14/18 Range/Units 18:20 06:45 06:45 WBC 12.2 H (3.8-10.6) k/uL RBC 3.07 L (4.30-5.90) m/uL Hgb 9.0 L (13.0-17.5) gm/dL Hct 28.2 L (39.0-53.0) % Neutrophils # 10.6 H (1.3-7.7) k/uL Lymphocytes # 0.6 L (1.0-4.8) k/uL Sodium 135 L (137-145) mmol/L BUN 25 H (9-20) mg/dL Glucose 116 H (74-99) mg/dL Calcium 7.5 L (8.4-10.2) mg/dL Urine Protein 1+ H (Negative) Urine Ketones Trace H (Negative) Urine Blood Large H (Negative) Ur Leukocyte Esterase Moderate H (Negative) Urine RBC >182 H (0-5) /hpf Urine WBC 15 H (0-5) /hpf Microbiology - Last 24 Hours (Table) 10/12/18 21:10 Urine Culture - Final Urine,Voided Assessment and Plan (1) Acute renal failure Current Visit: Yes Status: Acute Code(s): N17.9 - ACUTE KIDNEY FAILURE, UNSPECIFIED SNOMED Code(s): 63322763 (2) Gross hematuria Current Visit: Yes Status: Acute Code(s): R31.0 - GROSS HEMATURIA SNOMED Code(s): 888675074 (3) Laceration of bladder, initial encounter Current Visit: Yes Status: Acute Code(s): S37.23XA - LACERATION OF BLADDER, INITIAL ENCOUNTER SNOMED Code(s): 479035657 (4) Urinary retention Current Visit: Yes Status: Acute Code(s): R33.9 - RETENTION OF URINE, UNSPECIFIED SNOMED Code(s): 095400685 (5) Fall with injury Current Visit: No Status: Acute Code(s): W19.XXXA - UNSPECIFIED FALL, INITIAL ENCOUNTER SNOMED Code(s): 965881455 (6) Hematoma of right lower extremity Current Visit: No Status: Acute Code(s): S80.11XA - CONTUSION OF RIGHT LOWER LEG, INITIAL ENCOUNTER SNOMED Code(s): 490623210 (7) Histoplasmosis Current Visit: No Status: Acute Code(s): B39.9 - HISTOPLASMOSIS, UNSPECIFIED SNOMED Code(s): 76336166 (8) History of deep venous thrombosis (DVT) of distal vein of right lower extremity Current Visit: No Status: Acute Code(s): Z86.718 - PERSONAL HISTORY OF OTHER VENOUS THROMBOSIS AND EMBOLISM SNOMED Code(s): 545583300 (9) Paroxysmal atrial fibrillation Current Visit: No Status: Acute Code(s): I48.0 - PAROXYSMAL ATRIAL FIBRILLATION SNOMED Code(s): 218547390 (10) Acute blood loss anemia Current Visit: Yes Status: Acute Code(s): D62 - ACUTE POSTHEMORRHAGIC ANEMIA SNOMED Code(s): 609308674 (11) History of Coumadin therapy Current Visit: Yes Status: Acute Code(s): Z92.29 - PERSONAL HISTORY OF OTHER DRUG THERAPY SNOMED Code(s): 289194825
[2018-10-14] MEDS: SODIUM CHLORIDE 0.9% 1,000 ML IV SCH ×2 (19:19→20:30)
[2018-10-15] MEDS: MORPHINE SULFATE 4 MG/ML SYRINGE IV PRN ×2 (01:55→05:46)
[2018-10-15] MEDS: LEVOTHYROXINE 75 MCG TAB PO SCH (05:47)
[2018-10-15 07:38] LABS: Basophils # (A) 0.1 k/uL (0-0.2); Basophils % (A) 1 %; Eosinophils # (A) 0.3 k/uL (0-0.7); Eosinophils % (A) 3 %; HCT 27.4 % (39.0-53.0); Lymphocytes # (A) 0.7 k/uL (1.0-4.8); Lymphocytes % (A) 8 %; MCH 30.5 pg (25.0-35.0); MCHC 32.8 g/dL (31.0-37.0); Mean Platelet Volume 7.3; Monocytes # (A) 0.6 k/uL (0-1.0); Monocytes % (A) 7 %; Neutrophils # (A) 7.2 k/uL (1.3-7.7); Neutrophils % (A) 79 %; Platelet Count 349 k/uL (150-450); RBC 2.95 m/uL (4.30-5.90); RDW 15.1 % (11.5-15.5); WBC 9.1 k/uL (3.8-10.6)
[2018-10-15] MEDS: FERROUS SULFATE 325 MG TAB PO SCH (08:11)
[2018-10-15] MEDS: SPIRONOLACTONE 25 MG TAB PO SCH (08:11)
[2018-10-15] MEDS: VENLAFAXINE HCL ER 75 MG CAP PO SCH (08:11)
[2018-10-15] MEDS: ATORVASTATIN 10 MG TAB PO SCH (08:11)
[2018-10-15] MEDS: DONEPEZIL 5 MG TAB PO SCH (08:11)
[2018-10-15] MEDS: FUROSEMIDE 40 MG TAB PO SCH (08:11)
[2018-10-15] MEDS: HEPARIN SODIUM,PORCINE 5,000 UNIT/ML 1 ML VIAL SQ SCH ×2 (08:12→20:05)
[2018-10-15] MEDS: ceFAZolin IN SWFI 2 GM/20 ML SYRINGE IVP SCH ×2 (08:12→20:05)
[2018-10-15] MEDS: METOPROLOL TARTRATE 25 MG TAB PO SCH ×2 (08:13→14:59)
--- NOTE | 2018-10-15 09:35 | P.PN ---
Subjective Progress Note Date: 10/15/18 Principal diagnosis: This is a 73-year-old male seen in consultation because of acute kidney injury after a fall and rupture of his bladder. His creatinine has improved after surg jonna to repair his bladder. He has a Dennis catheter is draining mildly blood- tinged urine. Has some pain in his lower abdomen from the scar surgery day before yesterday dated 10/13/2018. Denies any fever chills cough no nausea vomiting. Has been having some minimal flatus but no bowel movement since surgery. His looks comfortable. This morning he continues to feel well last night he had trouble sleeping. No nausea vomiting appetite is poor though. Minimal lower abdominal pain or the scar. No diarrhea. No cough. Denies any shortness of breath. His right leg has dressing from the fall and hematoma History of present illness The patient is a 73 yo M with a PMH of dementia, Afib (on Coumadin), CHF, Hx of DVT, HLD, and HTN who presented to the ED for suprapubic pain and inability to pass urine. The history was supplemented by at bedside. The patient suffered a trauma when he fell through the floor of his barn 10 days ago, after which he developed a large R leg hematoma requiring evacuation and inpatient admission with discharge w/ 1 week ago. The patient then notes that he was in his usual state of health when he noticed a sharp suprapubic pain earlier today along with not having passed urine for 1-2 days. He had been following with his PCP who was monitoring his kidney function and had advised him to go to the ED if he continues to not be able to pass urine. The patient subsequently presented to the ED. At time of the interview, the patient reported that his pain had resolved completely. He otherwise denied fever, chills, nausea, vomiting, diarrhea, chest pain, or SOB. The patient underwent an extensive evaluation in the ED w/ CT Abd/Pelvis showing a fluid collection surrounding the bladder w/ possible hematoma, no free air, though unable to rule out bladder rupture. BMP revealed a K of 6.1, BUN 71, and Cr of 6.34 (previously 1.17 4 days prior). WBC count was elevated at 13.0. A dennis was placed which drained grossly bloody urine which subsequently became clear. Objective - Vital Signs Vital signs: Vital Signs Temp 98.3 F 10/15/18 07:10 Pulse 89 10/15/18 08:00 Resp 15 10/15/18 08:00 BP 97/62 10/15/18 07:10 Pulse Ox 96 10/15/18 08:12 Intake & Output 10/14/18 10/15/18 10/15/18 18:59 06:59 18:59 Intake Total 1602 1835 0 Output Total 1365 1520 Balance 237 315 0 Intake: Intake, IV Titration 525 755 Amount Sodium Chloride 0.9% 1, 525 755 000 ml @ 75 mls/hr IV . [id number] [facility] Rx#:[id number] Oral 1077 1080 0 Output: Drainage 15 40 Left Abdomen 15 40 Urine 1350 1480 Uretheral (Dennis) 100 Other: Voiding Method Indwelling Catheter Indwelling Catheter Indwelling Catheter # Voids 1 Exam general awake alert oriented comfortable. HEENT exam neck is supple no facial asymmetry Lungs are clear to auscultation fair air entry bilaterally Heart sounds are unremarkable for any murmur rub gallop Abdomen is soft nontender nondistended Extremity exam reveals dressing on the right leg from the hematoma. No edema noted Neurologically awake alert oriented - Labs CBC & Chem 7: 10/15/18 07:00 10/14/18 06:45 Labs: Abnormal Lab Results - Last 24 Hours (Table) 10/15/18 Range/Units 07:00 RBC 2.95 L (4.30-5.90) m/uL Hgb 9.0 L (13.0-17.5) gm/dL Hct 27.4 L (39.0-53.0) % Lymphocytes # 0.7 L (1.0-4.8) k/uL Assessment and Plan Plan: Impression 1. Acute kidney injury from urinary leak into the intraperitoneal area because of bladder laceration secondary to a fall through a floor, creatinine went up with the reabsorption of urine. Renal function improved, creatinine went down from 6.34-1.03 yesterday and no labs are available this morning. Electrolytes are unremarkable, good urine output, vital signs are stable 3. History of atrial fibrillation, cardiac surgery with valve repairs in the remote past with a sternal area wound dehiscence and healing with a bulge and stable chronically. 4. History of fall through a defect in the floor off his barn. There is a hematoma in the right leg and it is bandaged 5. History of pulmonary embolism in the past Recommendation. 1. Maintain IV fluids #75 an hour. 2. Watch renal function for another day, on Toradol in an attempt to reduce his narcotics. 3. Check renal function
--- NOTE | 2018-10-15 09:57 | P.PN ---
Subjective Progress Note Date: 10/15/18 Principal diagnosis: POD #2, s/p closure of bladder rupture Mr. Stevenson states that he had a bad night, due to the fact that a clot plugging his Duong catheter. The catheter was irrigated and is now draining well. He is consequently more comfortable. He denies dyspnea and chest pain. He is passing small amounts of flatus but has not had a bowel movement. He is tolerating cl ear liquid diet. Objective - Vital Signs Vital signs: Vital Signs Temp 98.3 F 10/15/18 07:10 Pulse 89 10/15/18 08:00 Resp 15 10/15/18 08:00 BP 97/62 10/15/18 07:10 Pulse Ox 96 10/15/18 08:12 Intake & Output 10/14/18 10/15/18 10/15/18 18:59 06:59 18:59 Intake Total 1602 1835 0 Output Total 1365 1520 Balance 237 315 0 Intake: Intake, IV Titration 525 755 Amount Sodium Chloride 0.9% 1, 525 755 000 ml @ 75 mls/hr IV . [id number] [facility] Rx#:[id number] Oral 1077 1080 0 Output: Drainage 15 40 Left Abdomen 15 40 Urine 1350 1480 Uretheral (Duong) 100 Other: Voiding Method Indwelling Catheter Indwelling Catheter Indwelling Catheter # Voids 1 - Constitutional General appearance: Present: average body habitus, cooperative, no acute distress - Gastrointestinal Gastrointestinal Comment(s): Soft, non-distended. Incision clean, dry, and intact. - Psychiatric Psychiatric: Present: A&O x's 3, appropriate affect - Labs CBC & Chem 7: 10/15/18 07:00 10/14/18 06:45 Labs: Abnormal Lab Results - Last 24 Hours (Table) 10/15/18 Range/Units 07:00 RBC 2.95 L (4.30-5.90) m/uL Hgb 9.0 L (13.0-17.5) gm/dL Hct 27.4 L (39.0-53.0) % Lymphocytes # 0.7 L (1.0-4.8) k/uL Assessment and Plan (1) Laceration of bladder, initial encounter Current Visit: Yes Status: Acute Code(s): S37.23XA - LACERATION OF BLADDER, INITIAL ENCOUNTER SNOMED Code(s): 874946117 Plan: Mr. Stevenson's condition is stable. Diet will be advanced. He was encouraged to increase ambulation. I stressed to him that if he experiences an urge to void, he should immediately consider the possibility that the catheter is plugged and notify the nursing staff of this so that his catheter can be irrigated. His hemoglobin level is stable, but I do not feel that Coumadin should be resumed until the threat of urinary clots has subsided.
--- NOTE | 2018-10-15 12:24 | P.PN ---
Subjective Progress Note Date: 10/15/18 Patient seen and examined at bedside, Hg stable at 9, still have some urinary clots and blood in the cath bag. Seen by Dr. Reyna early today. Objective - Vital Signs Vital signs: Vital Signs Temp 98.3 F 10/15/18 07:10 Pulse 89 10/15/18 08:00 Resp 15 10/15/18 08:00 BP 97/62 10/15/18 07:10 Pulse Ox 96 10/15/18 08:12 Intake & Output 10/14/18 10/15/18 10/15/18 18:59 06:59 18:59 Intake Total 1602 1835 0 Output Total 1365 1520 375 Balance 237 315 -375 Intake: Intake, IV Titration 525 755 Amount Sodium Chloride 0.9% 1, 525 755 000 ml @ 75 mls/hr IV . [id number] [facility] Rx#:[id number] Oral 1077 1080 0 Output: Drainage 15 40 Left Abdomen 15 40 Urine 1350 1480 375 Uretheral (Duong) 100 Other: Voiding Method Indwelling Catheter Indwelling Catheter Indwelling Catheter # Voids 1 - Exam Constitutional: No acute distress, conversant, pleasant Eyes: Anicteric sclerae, moist conjunctiva, no lid-lag, PERRLA ENMT: NC/AT,Oropharynx clear, no erythema, exudates Neck:Supple, FROM, no masses, or JVD, No carotid bruits; No thyromegaly Lungs: Clear to auscultation, Clear to percussion, Normal respiratory effort, no accessory muscle use Cardiovascular: Irregularly irregular, No murmurs, gallops, or rubs no peripheral edema Abdominal: Soft Nontender, nom distended, no guarding, no rebound or rigidity, Normoactive bowel sounds No hepatomegaly, No splenomegaly, No palpable mass No abdominal wall hernia noted Skin: Normal temperature, tone, texture, turgor, No induration No subcutaneous nodules, No rash, lesions, No ulcers Extremities:No digital cyanosis No clubbing, Pedal pulses intact and symmetrical Radial pulses intact and symmetrical Normal gait and station, No calf tenderness Psychiatric: Alert and oriented to person, place and time, Appropriate affect Intact judgement Neuro: Muscles Strength 5/5 in all 4 extremities, Sensation to light touch grossly present throughout, Cranial nerves II-XII grossly intact. No focal sensory deficits - Labs CBC & Chem 7: 10/15/18 07:00 10/16/18 07:12 Labs: Abnormal Lab Results - Last 24 Hours (Table) 10/15/18 Range/Units 07:00 RBC 2.95 L (4.30-5.90) m/uL Hgb 9.0 L (13.0-17.5) gm/dL Hct 27.4 L (39.0-53.0) % Lymphocytes # 0.7 L (1.0-4.8) k/uL Assessment and Plan (1) Acute kidney injury Narrative/Plan: * Secondary to trauma sustained from a fall with subsequent bladder laceration with intraperitoneal leak * Creatinine has normalized, good urine output, electrolytes are normal hyperkalemia is resolved * Appreciate nephrology recommendations continue with IV fluids Current Visit: Yes Status: Resolved Code(s): N17.9 - ACUTE KIDNEY FAILURE, UNSPECIFIED SNOMED Code(s): 84452890 (2) Laceration of bladder Narrative/Plan: * Status post cystoscopy with closure of bladder laceration performed by Dr. Lim 10/13 Current Visit: Yes Status: Resolved Code(s): S37.23XA - LACERATION OF BLADDER, INITIAL ENCOUNTER SNOMED Code(s): 281086290 (3) Gross hematuria Narrative/Plan: * Secondary to problem #2 above Current Visit: Yes Status: Acute Code(s): R31.0 - GROSS HEMATURIA SNOMED Code(s): 932426342 (4) Acute blood loss anemia Narrative/Plan: * Secondary to a bladder rupture/laceration sustained from fall, now status post cystoscopy with bladder laceration closure * Hemoglobin down proximally 2 g from presentation to 9.0 today * Patient previously on anticoagulation with Coumadin due to chronic A. fib * We'll continue to monitor Current Visit: Yes Status: Acute Code(s): D62 - ACUTE POSTHEMORRHAGIC ANEMIA SNOMED Code(s): 102933445 (5) A-fib Narrative/Plan: * INR currently subtherapeutic continue to hold Coumadin secondary to acute blood loss anemia sustained from bladder rupture/laceration * Plan to restart Coumadin tomorrow or Tuesday if hemoglobin remains stable * Continue beta ismael therapy, rate is currently controlled Current Visit: Yes Status: Chronic Code(s): I48.91 - UNSPECIFIED ATRIAL FIBRILLATION SNOMED Code(s): 23843888 (6) Essential hypertension Narrative/Plan: * Blood pressure stable controlled * Resume her home antihypertensive regimen Current Visit: Yes Status: Acute Code(s): I10 - ESSENTIAL (PRIMARY) HYPERTE NSION SNOMED Code(s): 00026513 (7) Hyperkalemia Narrative/Plan: * Secondary to acute kidney injury from bladder rupture/laceration * Now resolved along with acute kidney injury Current Visit: Yes Status: Resolved Code(s): E87.5 - HYPERKALEMIA SNOMED Code(s): 47808773 Plan: Anticipated discharge 1-2 days
--- NOTE | 2018-10-15 13:40 | P.PN ---
Subjective Progress Note Date: 10/15/18 CHIEF COMPLAINT: Possible bladder perforation HISTORY OF PRESENT ILLNESS: The patient is a 73-year-old male presented with a very complicated history of acute renal failure with abnormal computed adeline ography scan for possible bladder perforation following a fall over 2 weeks ago. He had a cystoscopy yesterday and brought to the operating room by urology where he had repair of bladder perforation, 10/13/2018. He is postop day 2. He is resting comfortably. He is passing flatus. ROS: No new shortness of breath. No new chest pain. No fevers or chills PHYSICAL EXAM: VITALS: Reviewed CONSTITUTIONAL: Well developed and in no acute distress. EYES: Conjuctivae without sclera icterus. Extraocular movements grossly intact. HEAD, EARS, NOSE, THROAT: Moist buccal mucosa. Head is atraumatic, normocephalic. Hears conversational speech. No nasal drainage. NECK: Supple. No JV distention. No thyroidomegaly. RESPIRATORY: Non-labored respirations and equal bilateral excursions. No gross wheezes. CARDIOVASCULAR: Irregular rate and rhythm. Palpable 2+ radial pulses. ABDOMEN: Soft. Nondistended. : Duong catheter present with gross hematuria improving. MUSCULOSKELETAL: Nail and fingers with good capillary refill. No clubbing cyanosis. SKIN: Warm and well perfused with good skin turgor. NEUROLOGIC: Cranial nerves I through XII grossly intact. No focal or lateralizing signs. PSYCH: Appropriate affect. Alert and oriented to person, place and time. CLINCAL LABS: Hemoglobin stable at 9.0 in 24 hours. ASSESSMENT: 1. Abnormal computed tomography scan 2. Gross hematuria with bladder perforation 3. Past history over 2 weeks fall with history of leg hematoma PLAN: 1. Hemoglobin is now stable. 2. No additional general surgical intervention needed. We'll sign off. Objective - Vital Signs Vital signs: Vital Signs Temp 98.3 F 10/15/18 07:10 Pulse 89 10/15/18 08:00 Resp 15 10/15/18 08:00 BP 97/62 10/15/18 07:10 Pulse Ox 96 10/15/18 08:12 Intake & Output 10/14/18 10/15/18 10/15/18 18:59 06:59 18:59 Intake Total 1602 1835 0 Output Total 1365 1520 375 Balance 237 315 -375 Intake: Intake, IV Titration 525 755 Amount Sodium Chloride 0.9% 1, 525 755 000 ml @ 75 mls/hr IV . [id number] [facility] Rx#:[id number] Oral 1077 1080 0 Output: Drainage 15 40 Left Abdomen 15 40 Urine 1350 1480 375 Uretheral (Duong) 100 Other: Voiding Method Indwelling Catheter Indwelling Catheter Indwelling Catheter # Voids 1 - Labs CBC & Chem 7: 10/15/18 07:00 10/14/18 06:45 Labs: Abnormal Lab Results - Last 24 Hours (Table) 10/15/18 Range/Units 07:00 RBC 2.95 L (4.30-5.90) m/uL Hgb 9.0 L (13.0-17.5) gm/dL Hct 27.4 L (39.0-53.0) % Lymphocytes # 0.7 L (1.0-4.8) k/uL Assessment and Plan (1) Acute renal failure Current Visit: Yes Status: Acute Code(s): N17.9 - ACUTE KIDNEY FAILURE, UNSPECIFIED SNOMED Code(s): 67696561 (2) Gross hematuria Current Visit: Yes Status: Acute Code(s): R31.0 - GROSS HEMATURIA SNOMED Code(s): 389766501 (3) Laceration of bladder, initial encounter Current Visit: Yes Status: Acute Code(s): S37.23XA - LACERATION OF BLADDER, INITIAL ENCOUNTER SNOMED Code(s): 714496296 (4) Urinary retention Current Visit: Yes Status: Acute Code(s): R33.9 - RETENTION OF URINE, UNSPECIFIED SNOMED Code(s): 423755532 (5) Fall with injury Current Visit: No Status: Acute Code(s): W19.XXXA - UNSPECIFIED FALL, INITIAL ENCOUNTER SNOMED Code(s): 410648006 (6) Hematoma of right lower extremity Current Visit: No Status: Acute Code(s): S80.11XA - CONTUSION OF RIGHT LOWER LEG, INITIAL ENCOUNTER SNOMED Code(s): 364790506 (7) Histoplasmosis Current Visit: No Status: Acute Code(s): B39.9 - HISTOPLASMOSIS, UNSPECIFIED SNOMED Code(s): 23700375 (8) History of deep venous thrombosis (DVT) of distal vein of right lower extremity Current Visit: No Status: Acute Code(s): Z86.718 - PERSONAL HISTORY OF OTHER VENOUS THROMBOSIS AND EMBOLISM SNOMED Code(s): 187492462 (9) Paroxysmal atrial fibrillation Current Visit: No Status: Acute Code(s): I48.0 - PAROXYSMAL ATRIAL FIBRILLATION SNOMED Code(s): 081245730 (10) Acute blood loss anemia Current Visit: Yes Status: Acute Code(s): D62 - ACUTE POSTHEMORRHAGIC ANEMIA SNOMED Code(s): 927101530 (11) History of Coumadin therapy Current Visit: Yes Status: Acute Code(s): Z92.29 - PERSONAL HISTORY OF OTHER DRUG THERAPY SNOMED Code(s): 960239547
[2018-10-15] MEDS: SODIUM CHLORIDE 0.9% 1,000 ML IV SCH (19:49)
[2018-10-16] MEDS: LEVOTHYROXINE 75 MCG TAB PO SCH (04:52)
[2018-10-16] MEDS: SODIUM CHLORIDE 0.9% 1,000 ML IV SCH ×2 (04:54→21:15)
[2018-10-16 07:53] LABS: Anion Gap 5 mmol/L; Blood Urea Nitrogen 14 mg/dL (9-20); Calcium 7.5 mg/dL (8.4-10.2); Carbon Dioxide 27 mmol/L (22-30); Chloride 105 mmol/L (98-107); Glucose 87 mg/dL (74-99); Potassium 3.9 mmol/L (3.5-5.1); Sodium 137 mmol/L (137-145)
[2018-10-16] MEDS: HEPARIN SODIUM,PORCINE 5,000 UNIT/ML 1 ML VIAL SQ SCH ×2 (09:20→21:15)
[2018-10-16] MEDS: VENLAFAXINE HCL ER 75 MG CAP PO SCH (09:20)
[2018-10-16] MEDS: SPIRONOLACTONE 25 MG TAB PO SCH (09:20)
[2018-10-16] MEDS: FUROSEMIDE 40 MG TAB PO SCH (09:20)
[2018-10-16] MEDS: DONEPEZIL 5 MG TAB PO SCH (09:20)
[2018-10-16] MEDS: FERROUS SULFATE 325 MG TAB PO SCH (09:20)
[2018-10-16] MEDS: METOPROLOL TARTRATE 25 MG TAB PO SCH ×2 (09:20→17:14)
[2018-10-16] MEDS: ATORVASTATIN 10 MG TAB PO SCH (09:20)
[2018-10-16] MEDS: ceFAZolin IN SWFI 2 GM/20 ML SYRINGE IVP SCH ×2 (10:02→21:15)
--- NOTE | 2018-10-16 11:18 | P.PN ---
Subjective Patient is seen in follow-up for acute kidney injury. Renal function is improving. Creatinine 0.91 today. Denies chest pain or shortness of breath. Oral intake is gradually improving. He is nonoliguric. He is receiving normal saline at 75 mL an hour. Hemodynamically stable. Vital signs are stable. General: The patient appeared well nourished and normally developed. HEENT: Head exam is unremarkable. Neck is without jugular venous distension. LUNGS: Lungs are clear to auscultation and percussion. Breath sounds decreased. HEART: Rate and Rhythm are regular. First and second heart sounds normal. No murmurs, rubs or gallops. ABDOMEN: Abdominal exam reveals normal bowel sounds. Non-tender and non- distended. No evidence of peritonitis. EXTREMITITES: No clubbing, cyanosis, or edema. Objective - Vital Signs Vital signs: Vital Signs Temp 97.6 F 10/16/18 07:00 Pulse 110 H 10/16/18 07:00 Resp 14 10/16/18 07:00 BP 112/72 10/16/18 07:00 Pulse Ox 93 L 10/16/18 07:00 Intake & Output 10/15/18 10/16/18 10/16/18 18:59 06:59 18:59 Intake Total 1242 150 Output Total 2175 3010 1000 Balance -933 -2860 -1000 Intake: Intake, IV Titration 525 150 Amount Sodium Chloride 0.9% 1, 525 150 000 ml @ 75 mls/hr IV . [id number] [facility] Rx#:[id number] Oral 717 Output: Drainage 10 Left Abdomen 10 Urine 2175 3000 1000 Uretheral (Duong) 2500 Other: Voiding Method Indwelling Catheter Indwelling Catheter Indwelling Catheter # Voids 1 # Bowel Movements 0 - Labs CBC & Chem 7: 10/15/18 07:00 10/16/18 07:12 Labs: Abnormal Lab Results - Last 24 Hours (Table) 10/16/18 Range/Units 07:12 Calcium 7.5 L (8.4-10.2) mg/dL Assessment and Plan Plan: Assessment: 1. Acute kidney injury secondary to urinary leak into intraperitoneal space due to bladder laceration. GFR is back to baseline. 2. Bladder rupture status post closure. Urology following. Currently has a Duong catheter. 3. Anemia status post closure of bladder. Rule out iron deficiency. Plan: Maintain normal saline at 75 mL an hour. Encouraged oral intake. Check iron studies.
[2018-10-16 11:58] LABS: INR 1.3 (<1.2); Prothrombin Time 13.8 sec (9.0-12.0)
--- NOTE | 2018-10-16 15:12 | P.PN ---
Subjective Progress Note Date: 10/16/18 Patient seen and examined at bedside, Hg stable at 9, no urinary clots since yesterday, Duong has been flushed. Patient has been up and ambulatory passing gas, no bowel movements as yet Objective - Vital Signs Vital signs: Vital Signs Temp 97.6 F 10/16/18 07:00 Pulse 110 H 10/16/18 07:00 Resp 14 10/16/18 07:00 BP 112/72 10/16/18 07:00 Pulse Ox 93 L 10/16/18 07:00 Intake & Output 10/15/18 10/16/18 10/16/18 18:59 06:59 18:59 Intake Total 1242 150 Output Total 2175 3010 1000 Balance -873 -2860 -1000 Intake: Intake, IV Titration 525 150 Amount Sodium Chloride 0.9% 1, 525 150 000 ml @ 75 mls/hr IV . [id number] [facility] Rx#:[id number] Oral 717 Output: Drainage 10 Left Abdomen 10 Urine 2175 3000 1000 Uretheral (Duong) 2500 Other: Voiding Method Indwelling Catheter Indwelling Catheter Indwelling Catheter # Voids 1 # Bowel Movements 0 - Exam Constitutional: No acute distress, conversant, pleasant Eyes: Anicteric sclerae, moist conjunctiva, no lid-lag, PERRLA ENMT: NC/AT,Oropharynx clear, no erythema, exudates Neck:Supple, FROM, no masses, or JVD, No carotid bruits; No thyromegaly Lungs: Clear to auscultation, Clear to percussion, Normal respiratory effort, no accessory muscle use Cardiovascular: Irregularly irregular, No murmurs, gallops, or rubs no peripheral edema Abdominal: Soft Nontender, nom distended, no guarding, no rebound or rigidity, Normoactive bowel sounds No hepatomegaly, No splenomegaly, No palpable mass No abdominal wall hernia noted Skin: Normal temperature, tone, texture, turgor, No induration No subcutaneous nodules, No rash, lesions, No ulcers Extremities:No digital cyanosis No clubbing, Pedal pulses intact and symmetrical Radial pulses intact and symmetrical Normal gait and station, No calf tenderness Psychiatric: Alert and oriented to person, place and time, Appropriate affect Intact judgement Neuro: Muscles Strength 5/5 in all 4 extremities, Sensation to light touch grossly present throughout, Cranial nerves II-XII grossly intact. No focal sensory deficits - Labs CBC & Chem 7: 10/15/18 07:00 10/16/18 07:12 Labs: Abnormal Lab Results - Last 24 Hours (Table) 10/16/18 10/16/18 Range/Units 07:12 11:14 PT 13.8 H (9.0-12.0) sec INR 1.3 H (<1.2) Calcium 7.5 L (8.4-10.2) mg/dL Assessment and Plan (1) Acute kidney injury Narrative/Plan: * Secondary to trauma sustained from a fall with subsequent bladder laceration with intraperitoneal leak * Creatinine has normalized, good urine output, electrolytes are normal hyperkalemia is resolved * Appreciate nephrology recommendations continue with IV fluids Current Visit: Yes Status: Resolved Code(s): N17.9 - ACUTE KIDNEY FAILURE, UNSPECIFIED SNOMED Code(s): 38946373 (2) Laceration of bladder Narrative/Plan: * Status post cystoscopy with closure of bladder laceration performed by Dr. Lim 10/13 * Continue Duong for at least [address] Reyna Current Visit: Yes Status: Resolved Code(s): S37.23XA - LACERATION OF BLADDER, INITIAL ENCOUNTER SNOMED Code(s): 613211831 (3) Gross hematuria Narrative/Plan: * Secondary to problem #2 above Current Visit: Yes Status: Acute Code(s): R31.0 - GROSS HEMATURIA SNOMED Code(s): 583204007 (4) Acute blood loss anemia Narrative/Plan: * Secondary to a bladder rupture/laceration sustained from fall, now status post cystoscopy with bladder laceration closure * Hemoglobin down proximally 2 g from presentation to 9.0 today * Patient previously on anticoagulation with Coumadin due to chronic A. fib * We'll continue to monitor Current Visit: Yes Status: Acute Code(s): D62 - ACUTE POSTHEMORRHAGIC ANEMIA SNOMED Code(s): 774434184 (5) A-fib Narrative/Plan: * INR currently subtherapeutic continue to hold Coumadin secondary to acute blood loss anemia sustained from bladder rupture/laceration * Coumadin will be restarted today * Continue beta ismael therapy, rate is currently controlled Current Visit: Yes Status: Chronic Code(s): I48.91 - UNSPECIFIED ATRIAL FIBRILLATION SNOMED Code(s): 77688159 (6) Essential hypertension Narrative/Plan: * Blood pressure stable controlled * Resume her home antihypertensive regimen Current Visit: Yes Status: Acute Code(s): I10 - ESSENTIAL (PRIMARY) HYPERTENSION SNOMED Code(s): 21136738 (7) Hyperkalemia Narrative/Plan: * Secondary to acute kidney injury from bladder rupture/laceration * Now resolved along with acute kidney injury Current Visit: Yes Status: Resolved Code(s): E87.5 - HYPERKALEMIA SNOMED Code(s): 93399739 Plan: Anticipated discharge 1-2 days * continue to monitor hemoglobin with resumption of Coumadin *
[2018-10-16 15:18] VITALS: RESP 16
[2018-10-16] MEDS ORDERED: WARFARIN 5 MG TAB PO ONE ×2 (18:00)
[2018-10-16 18:25] LABS: Iron Saturation 10.09 (15.00-50.00)
--- NOTE | 2018-10-16 19:37 | P.PN ---
Subjective Progress Note Date: 10/16/18 Principal diagnosis: POD #3, s/p closure of bladder rupture Mr. Stevenson states that he feels tired today. His catheter is draining well, and the urine is clear. He denies dyspnea and chest pain. He is passing flatus but has not had a bowel movement. He is tolerating diet and denies nausea. He is ambulating only a limited degree. Objective - Vital Signs Vital signs: Vital Signs Temp 98.1 F 10/16/18 18:51 Pulse 84 10/16/18 18:51 Resp 16 10/16/18 18:51 BP 111/78 10/16/18 18:51 Pulse Ox 97 10/16/18 18:51 Intake & Output 10/16/18 10/16/18 10/17/18 06:59 18:59 06:59 Intake Total 150 125 Output Total 3010 1650 Balance -9990 -1645 Intake: Intake, IV Titration 150 Amount Sodium Chloride 0.9% 1, 150 000 ml @ 75 mls/hr IV . [id number] [facility] Rx#:[id number] Oral 125 Output: Drainage 10 Left Abdomen 10 Urine 3000 1650 Uretheral (Duong) 2500 Other: Voiding Method Indwelling Catheter Indwelling Catheter # Voids 1 # Bowel Movements 0 - Constitutional General appearance: Present: cooperative, no acute distress - Gastrointestinal Gastrointestinal Comment(s): Soft, non-distended. The incision is clean, dry, and intact. - Psychiatric Psychiatric: Present: A&O x's 3 - Labs CBC & Chem 7: 10/15/18 07:00 10/16/18 07:12 Labs: Abnormal Lab Results - Last 24 Hours (Table) 10/16/18 10/16/18 10/16/18 Range/Units 07:12 11:14 11:14 PT 13.8 H (9.0-12.0) sec INR 1.3 H (<1.2) Calcium 7.5 L (8.4-10.2) mg/dL Iron 23 L (65-175) ug/dL Iron Saturation 10.09 L (15.00-50.00) Assessment and Plan (1) Laceration of bladder, initial encounter Current Visit: Yes Status: Acute Code(s): S37.23XA - LACERATION OF BLADDER, INITIAL ENCOUNTER SNOMED Code(s): 025206372 Plan: Mr. Stevenson's condition is stable. Coumadin has been resumed, and I am hopeful that the urine will remain clear. It is my feeling that he will be urologically stable for discharge tomorrow or the following day. The MEGHAN drain output is minimal, and therefore the drain will be removed prior to discharge. However, he will be discharged home with the Duong catheter, and arrangements will be made for him to undergo a cystogram as an outpatient prior to Duong catheter removal.
[2018-10-17] MEDS: LEVOTHYROXINE 75 MCG TAB PO SCH (05:19)
--- NOTE | 2018-10-17 08:01 | P.PN ---
Subjective Progress Note Date: 10/17/18 Principal diagnosis: POD #4, s/p closure of bladder rupture Mr. Stevenson is feeling well this morning. His catheter is draining well, and the urine is clear. He denies dyspnea and chest pain. He is passing flatus but has not had a bowel movement. He is tolerating diet and denies nausea. Objective - Vital Signs Vital signs: Vital Signs Temp 98.4 F 10/17/18 01:26 Pulse 88 10/17/18 01:26 Resp 16 10/17/18 01:26 BP 111/68 10/17/18 01:26 Pulse Ox 93 L 10/17/18 01:26 Intake & Output 10/16/18 10/17/18 10/17/18 18:59 06:59 18:59 Intake Total 125 1200 Output Total 1650 1915 Balance -1525 -715 Intake: Intake, IV Titration 1200 Amount Sodium Chloride 0.9% 1, 1200 000 ml @ 75 mls/hr IV . [id number] [facility] Rx#:[id number] Oral 125 Output: Drainage 15 Left Abdomen 15 Urine 1650 1900 Other: Voiding Method Indwelling Catheter Indwelling Catheter - Constitutional General appearance: Present: cooperative, no acute distress - Gastrointestinal Gastrointestinal Comment(s): Soft, non-distended. Incision clean, dry, and intact. No erythema. - Labs CBC & Chem 7: 10/15/18 07:00 10/16/18 07:12 Labs: Abnormal Lab Results - Last 24 Hours (Table) 10/16/18 10/16/18 Range/Units 11:14 11:14 PT 13.8 H (9.0-12.0) sec INR 1.3 H (<1.2) Iron 23 L (65-175) ug/dL Iron Saturation 10.09 L (15.00-50.00) Assessment and Plan (1) Laceration of bladder, initial encounter Current Visit: Yes Status: Acute Code(s): S37.23XA - LACERATION OF BLADDER, INITIAL ENCOUNTER SNOMED Code(s): 831693849 Plan: Mr. Stevenson is urologically stable for discharge. The MEGHAN drain will be removed. He will be discharged home with the Duong catheter, and arrangements will be ma de for him to undergo a cystogram as an outpatient prior to Duong catheter removal.
[2018-10-17 08:14] LABS: Basophils # (A) 0.1 k/uL (0-0.2); Basophils % (A) 1 %; Eosinophils # (A) 0.6 k/uL (0-0.7); Eosinophils % (A) 8 %; HCT 29.2 % (39.0-53.0); HGB 9.5 gm/dL (13.0-17.5); Hypochromasia Slight; Lymphocytes % (A) 13 %; MCH 30.2 pg (25.0-35.0); MCHC 32.5 g/dL (31.0-37.0); MCV 92.8 fL (80.0-100.0); Mean Platelet Volume 7.1; Monocytes # (A) 0.4 k/uL (0-1.0); Monocytes % (A) 5 %; Neutrophils # (A) 5.6 k/uL (1.3-7.7); Neutrophils % (A) 71 %; Platelet Count 444 k/uL (150-450); RBC 3.15 m/uL (4.30-5.90); RDW 15.3 % (11.5-15.5); WBC 7.9 k/uL (3.8-10.6)
[2018-10-17 08:20] VITALS: BP 116/74; PULSE 84; TEMP 98.3
[2018-10-17 08:24] LABS: Anion Gap 5 mmol/L; Blood Urea Nitrogen 14 mg/dL (9-20); Calcium 7.6 mg/dL (8.4-10.2); Carbon Dioxide 28 mmol/L (22-30); Chloride 103 mmol/L (98-107); Glucose 90 mg/dL (74-99); INR 1.2 (<1.2); Magnesium 1.7 mg/dL (1.6-2.3); Prothrombin Time 12.7 sec (9.0-12.0); Sodium 136 mmol/L (137-145)
[2018-10-17] MEDS: FERROUS SULFATE 325 MG TAB PO SCH (08:52)
[2018-10-17] MEDS: METOPROLOL TARTRATE 25 MG TAB PO SCH (08:52)
[2018-10-17] MEDS: FUROSEMIDE 40 MG TAB PO SCH (08:53)
[2018-10-17] MEDS: VENLAFAXINE HCL ER 75 MG CAP PO SCH (08:53)
[2018-10-17] MEDS: ATORVASTATIN 10 MG TAB PO SCH (08:53)
[2018-10-17] MEDS: SPIRONOLACTONE 25 MG TAB PO SCH (08:53)
[2018-10-17] MEDS: SODIUM CHLORIDE 0.9% 1,000 ML IV SCH (08:54)
[2018-10-17] MEDS: DONEPEZIL 5 MG TAB PO SCH (08:54)
[2018-10-17] MEDS: HEPARIN SODIUM,PORCINE 5,000 UNIT/ML 1 ML VIAL SQ SCH ×2 (08:54→12:39)
[2018-10-17] MEDS ORDERED: WARFARIN 3 MG TAB PO SCH (09:00)
--- NOTE | 2018-10-17 10:10 | P.DS ---
Providers Date of admission: 10/12/18 23:34 Expected date of discharge: 10/17/18 Attending physician: Duong Nix MD Consults: 10/12/18 23:03 Consult Physician Stat Consulting Provider: Davon Lim Consult Reason/Comments: Hematuria, urinary retention, intra-abdominal hematoma Do you want consulting provider notified?: Already Contacted Consult Physician Stat Consulting Provider: Ann Elliott Consult Reason/Comments: Intra-abdominal hematoma Do you want consulting provider notified?: Already Contacted 10/13/18 08:11 Consult Physician Urgent Consulting Provider: Arsenio De La Torre Consult Reason/Comments: GORDO and hyperkalemia Do you want consulting provider notified?: Yes Primary care physician: Shabnam Chew MD Hospital Course: Discharge Diagnosis: Bladder laceration, s/p repair GORDO, due to bladder leak Hematuria due to bladder laceration Coumadin use A fib Acute blood loss anemia [place] HTN Hyperkalemia Right leg hematoma Hospital Course: Patient is a 73-year-old male past medical history of dementia, A. fib currently on Coumadin, congestive heart failure, recent right leg hematoma status post evacuation who presented to the emergency department with suprapubic pain. In the ER he underwent an extensive evaluation. CT abdomen and pelvis showed a fluid collection surrounding the bladder with possible hematoma but unable to rule out bladder rupture. Urology was contacted. He was also noted to have an elevated potassium of 6.1, BUN 71, and creatinine of 6.34. White blood cell count was elevated at 13. Flu was placed in the ER which drained gross bloody urine. He was subsequently admitted for further monitoring. He was seen by urology who recommended cystogram which confirmed bladder rupture. He subsequently underwent exploratory laparotomy with closure of the bladder laceration on 10/13/18. He progressed well after that point in time. Nephrology was consulted due to his acute kidney injury which was felt to be secondary to his bladder rupture. He did have some hematuria after surgery which subsequently cleared. His creatinine normalized. He was determined stable for discharge home by urology. He was passing flatus but does not have a bowel movement prior to discharge. His Coumadin was restarted on 10/16. He already has home health with [facility] set up secondary to his recent right leg hematoma. He will have his right leg hematoma redressed prior to discharge, he will receive a leg bag for his Duong catheter, and his MEGHAN drain will be removed. He will follow-up with urology for outpatient cystogram and Duong removal. He will follow up in the wound care clinic regarding his right lower extremity hematoma. She did complete a 7 day antibiotic course during his hospitalization and subsequently does not need to complete his oral antibiotics as prescribed by Dr. Ramos at home. He will follow with Dr. Chew in the morning. He'll follow- up with Dr. Mckeon next week. Patient has not required any pain medications since 10/15 and felt as though his pain will be controlled with Tylenol. I've asked him to continue taking Coumadin 5 mg. Home health care nurse will draw a PT/INR on 10/20. Patient seen and examined at bedside. No pain, passing flatus, no nausea or vomiting. No chest pain or shortness of breath. present at bedside and all questions answered. Vital signs reviewed and stable. General: non toxic, no distress, appears at stated age Derm: warm, dry Head: atraumatic, normocephalic, symmetric Eyes: EOMI, no lid lag, anicteric sclera Mouth: no lip lesion, mucus membranes moist Cardiovascular: S1S2 reg, no murmur, positive posterior tibial pulse bilateral, Lungs: Decreased breath sounds bilateral, no rhonchi, no rales , no accessory muscle use Abdominal: soft, nontender to palpation, no guarding, no appreciable organomegaly Ext: no gross muscle atrophy, no edema, no contractures Neuro: CN II-XI grossly intact, no focal neuro deficits Psych: Alert, oriented, appropriate affect A total of 35 minutes of time were spent preparing this complex discharge summary . Pertinent Studies: [id number] of contrast from superior right urinary bladder into intra-peritoneal pelvis CT abdomen and pelvis-abnormal fluid collection in the pelvis which appears to surround the bladder may represent hemorrhage or hematoma, clinical correlation to exclude bladder rupture. Procedures: 10/13-repair of bladder rupture Patient Condition at Discharge: Stable Plan - Discharge Summary Discharge Rx Participant: No New Discharge Prescriptions: New Warfarin [Coumadin] 5 mg PO ONCE@1800 tab Continue Spironolactone [Aldactone] 25 mg PO DAILY #7 tab Aspirin 81 mg PO DAILY Atorvastatin Calcium [Lipitor] 10 mg PO DAILY Ferrous Sulfate [Iron (65 MG Elemental)] 325 mg PO DAILY Venlafaxine HCl ER [Effexor XR] 75 mg PO DAILY Levothyroxine Sodium [Synthroid] 150 mcg PO DAILY@0600 Metoprolol Tartrate 25 mg PO BID@0700,1400 Methylphenidate HCl [Ritalin] 10 mg PO BID@0700,1400 Donepezil [Aricept] 5 mg PO DAILY Furosemide [Lasix] 40 mg PO DAILY Discontinued Warfarin Sodium [Coumadin] 4.5 mg PO DAILY Cefadroxil [Duricef] 500 mg PO Q12HR #14 cap Discharge Medication List Spironolactone [Aldactone] 25 mg PO DAILY #7 tab 01/03/17 [Rx] Aspirin 81 mg PO DAILY 06/07/17 [History] Atorvastatin Calcium [Lipitor] 10 mg PO DAILY 06/07/17 [History] Ferrous Sulfate [Iron (65 MG Elemental)] 325 mg PO DAILY 06/07/17 [History] Donepezil [Aricept] 5 mg PO DAILY 10/05/18 [History] Levothyroxine Sodium [Synthroid] 150 mcg PO DAILY@0600 10/05/18 [History] Methylphenidate HCl [Ritalin] 10 mg PO BID@0700,1400 10/05/18 [History] Metoprolol Tartrate 25 mg PO BID@0700,1400 10/05/18 [History] Venlafaxine HCl ER [Effexor XR] 75 mg PO DAILY 10/05/18 [History] Furosemide [Lasix] 40 mg PO DAILY 10/12/18 [History] Warfarin [Coumadin] 5 mg PO ONCE@1800 tab 10/17/18 [Rx] Follow up Appointment(s)/Referral(s): Davon Lim MD [STAFF PHYSICIAN] - 10/31/18 Shabnam Chew MD [Primary Care Provider] - 1-2 days [facility], [NON-STAFF] - [facility] [NON-STAFF] - 1 Week Ambulatory/Diagnostic Orders: Complete Blood Count w/diff [LAB.AMB] Time Frame: 3 Days, Location: None Selected Prothrombin Time INR [LAB.AMB] Time Frame: 3 Days, Location: None Selected Activity/Diet/Wound Care/Special Instructions: Patient is to be discharged home with Duong catheter. Duogn catheter care should be reviewed with him. No lifting greater than 5 pounds. Weight bare as tolerated on right leg. Follow with home care. Discharge Disposition: HOME WITH HOME HEALTH SERVICES
[2018-10-17] MEDS: ceFAZolin IN SWFI 2 GM/20 ML SYRINGE IVP SCH (11:36)
--- NOTE | 2018-10-17 12:07 | P.PN ---
Subjective Patient is seen in follow-up for acute kidney injury. Renal function is improving. Creatinine 0.87 today. Denies chest pain or shortness of breath. Oral intake is gradually improving. He is nonoliguric. Hemodynamically stable. Patient has Duong catheter in place. Scheduled to go home today. Vital signs are stable. General: The patient appeared well nourished and normally developed. HEENT: Head exam is unremarkable. Neck is without jugular venous distension. LUNGS: Lungs are clear to auscultation and percussion. Breath sounds decreased. HEART: Rate and Rhythm are regular. First and second heart sounds normal. No murmurs, rubs or gallops. ABDOMEN: Abdominal exam reveals normal bowel sounds. Non-tender and non- distended. No evidence of peritonitis. EXTREMITITES: No clubbing, cyanosis, or edema. Objective - Vital Signs Vital signs: Vital Signs Temp 98.3 F 10/17/18 07:00 Pulse 84 10/17/18 07:00 Resp 16 10/17/18 07:00 BP 116/74 10/17/18 07:00 Pulse Ox 95 10/17/18 07:00 Intake & Output 10/16/18 10/17/18 10/17/18 18:59 06:59 18:59 Intake Total 125 1200 Output Total 1650 1915 1 Balance -1525 -715 -1 Intake: Intake, IV Titration 1200 Amount Sodium Chloride 0.9% 1, 1200 000 ml @ 75 mls/hr IV . [id number] [facility] Rx#:[id number] Oral 125 Output: Drainage 15 1 Left Abdomen 15 1 Urine 1650 1900 Other: Voiding Method Indwelling Catheter Indwelling Catheter Indwelling Catheter - Labs CBC & Chem 7: 10/17/18 07:36 10/17/18 07:36 Labs: Abnormal Lab Results - Last 24 Hours (Table) 10/16/18 10/17/18 10/17/18 Range/Units 11:14 07:36 07:36 RBC (4.30-5.90) m/uL Hgb (13.0-17.5) gm/dL Hct (39.0-53.0) % PT 12.7 H (9.0-12.0) sec INR 1.2 H (<1.2) Sodium 136 L (137-145) mmol/L Calcium 7.6 L (8.4-10.2) mg/dL Iron 23 L (65-175) ug/dL Iron Saturation 10.09 L (15.00-50.00) 10/17/18 Range/Units 07:36 RBC 3.15 L (4.30-5.90) m/uL Hgb 9.5 L (13.0-17.5) gm/dL Hct 29.2 L (39.0-53.0) % PT (9.0-12.0) sec INR (<1.2) Sodium (137-145) mmol/L Calcium (8.4-10.2) mg/dL Iron (65-175) ug/dL Iron Saturation (15.00-50.00) Assessment and Plan Plan: Assessment: 1. Acute kidney injury secondary to urinary leak into intraperitoneal space due to bladder laceration. GFR is back to baseline. 2. Bladder rupture status post closure. Urology following. Currently has a Duong catheter. 3. Anemia status post closure of bladder. Iron deficiency noted. Plan: Hep-Lock IV fluids. IV iron today. Stable to be discharged home from nephrology standpoint.
[2018-10-17] MEDS ORDERED: SODIUM FERRIC GLUCONAT-SUCROSE 125 MG in SODIUM CHLORIDE 0.9% 100 ML IVPB ONE (12:30)
[2018-10-17] MEDS ORDERED: WARFARIN 5 MG TAB PO ONE (18:00)
== END 2018-10-17 12:53 | disposition home health service (06) | DRG 654 ==
LOC: EC 20:19 → 4SSUR 23:34
PROVIDERS: ADMIT Internal Medicine; ATTEND Internal Medicine
PROC: 0TQB0ZZ Repair Bladder, Open Approach (ICD-10-PCS; principal; 2018-10-13 10:35)
PROC: BT1 Imaging, Urinary System, Fluoroscopy (ICD-10-PCS; 2018-10-13 10:35)
DX: S37.29XA Other injury of bladder, initial encounter (principal); N17.9 Acute kidney failure, unspecified; D62 Acute posthemorrhagic anemia; I50.9 Heart failure, unspecified; I11.0 Hypertensive heart disease with heart failure; I48.0 Paroxysmal atrial fibrillation; B39.9 Histoplasmosis, unspecified; E87.5 Hyperkalemia; R31.0 Gross hematuria; E78.5 Hyperlipidemia, unspecified; N40.1 Benign prostatic hyperplasia with lower urinary tract symptoms; R33.8 Other retention of urine; M19.90 Unspecified osteoarthritis, unspecified site; G47.00 Insomnia, unspecified; F32.9 Major depressive disorder, single episode, unspecified; E89.0 Postprocedural hypothyroidism; F03.90 Unspecified dementia, unspecified severity, without behavioral disturbance, psychotic disturbance, mood disturbance, and anxiety; N32.0 Bladder-neck obstruction; W17.89XA Other fall from one level to another, initial encounter; S80.11XA Contusion of right lower leg, initial encounter; K44.9 Diaphragmatic hernia without obstruction or gangrene; E66.9 Obesity, unspecified; Z68.33 Body mass index [BMI] 33.0-33.9, adult; Z79.01 Long term (current) use of anticoagulants; Z79.82 Long term (current) use of aspirin; Z79.899 Other long term (current) drug therapy; Z79.890 Hormone replacement therapy; Z86.711 Personal history of pulmonary embolism; Z85.850 Personal history of malignant neoplasm of thyroid; Z96.652 Presence of left artificial knee joint; Z95.3 Presence of xenogenic heart valve; Z98.42 Cataract extraction status, left eye; Z98.41 Cataract extraction status, right eye; Z86.718 Personal history of other venous thrombosis and embolism; Z87.891 Personal history of nicotine dependence; Z82.49 Family history of ischemic heart disease and other diseases of the circulatory system; Z80.0 Family history of malignant neoplasm of digestive organs
CPT/HCPCS: 36415; 51702; 51798; 74176; 74430; 80048; 80053; 81001; 82150; 82728; 83540; 83550; 83605; 83690; 83735; 85025; 85610; 85730; 87086; 93005; 94002; 94760; 96365; 96375; 99285

== ENCOUNTER 2018-10-24 17:25 | Emergency (ER) | payer MEDICARE, OTHER ==
[2018-10-24 17:36] VITALS: RESP 18
[2018-10-24 18:21] LABS: Appearance,Urine Clear (Clear); Bilirubin,Urine Negative (Negative); Blood,Urine Moderate (Negative); Budding Yeast,Urine Rare /hpf; Color,Urine Yellow; Glucose,Urine (UA) Negative (Negative); Ketones,Urine Negative (Negative); Leukocyte Esterase,Urine Moderate (Negative); Mucus,Urine Rare /hpf; Nitrite,Urine Negative (Negative); PH, Urine 5.5 (5.0-8.0); Protein,Urine Negative (Negative); RBC,Urine 52 /hpf (0-5); Specific Gravity,Urine 1.014 (1.001-1.035); Urobilinogen,Urine <2.0 mg/dL (<2.0)
--- NOTE | 2018-10-24 18:41 | ED ---
General Adult HPI - General Chief complaint: Urogenital Stated complaint: plugged catheter Time Seen by Provider: 10/24/18 17:43 Source: patient, RN notes reviewed, old records reviewed Mode of arrival: ambulatory Limitations: no limitations - History of Present Illness Initial comments: 73-year-old male patient with complex past OB history most pertinent for recent bladder rupture and surgery presents to ED for urinary catheter dysfunction. Patient reports that this morning he emptied his catheter which was normal, however reports that he has had no drainage since early this morning. Patient states that he does feel that he needs to urinate, however denies any pain hematuria abdominal pain chest pain shortness of breath nausea vomiting diarrhea or fevers chills. Denies all other complaints. Systemic: Pt denies fatigue, myalgia, fever/chills, rash. Pt denies weakness, night sweats, weight loss. Neuro: Pt denies headache, visual disturbances, syncope or pre-syncope. HEENT: Pt denies ocular discharge or irritation, otalgia, rhinorrhea, pharyngitis or notable lymphadenopathy. Cardiopulmonary: Pt denies chest pain, SOB, heart palpitations, dyspnea on exertion. Abdominal/GI: Pt denies abdominal pain, n/v/d. : Pt denies dysuria, burning w/ urination, frequency/urgency. Denies new onset urinary or bowel incontinence. MSK: Pt denies myalgia, loss of strength or function in extremities. Neuro: Pt denies new onset weakness, paresthesias. - Related Data Home Medications Medication Instructions Recorded Confirmed Aspirin 81 mg PO DAILY 06/07/17 10/24/18 Atorvastatin Calcium [Lipitor] 10 mg PO DAILY 06/07/17 10/24/18 Donepezil [Aricept] 5 mg PO DAILY 10/05/18 10/24/18 Levothyroxine Sodium [Synthroid] 150 mcg PO DAILY@0600 10/05/18 10/24/18 Methylphenidate HCl [Ritalin] 10 mg PO BID@0700,1400 10/05/18 10/24/18 Metoprolol Tartrate 25 mg PO BID@0700,1400 10/05/18 10/24/18 Venlafaxine HCl ER [Effexor XR] 75 mg PO DAILY 10/05/18 10/24/18 Furosemide [Lasix] 40 mg PO DAILY 10/12/18 10/24/18 Warfarin [Coumadin] 4.5 mg PO HS 10/24/18 10/24/18 Previous Rx's Medication Instructions Recorded Spironolactone [Aldactone] 25 mg PO DAILY #7 tab 01/03/17 Cephalexin [Keflex] 500 mg PO Q6HR 10 Days cap 10/24/18 Allergies Allergy/AdvReac Type Severity Reaction Status Date / Time No Known Allergies Allergy Verified 10/24/18 17:44 Review of Systems ROS Statement: Those systems with pertinent positive or pertinent negative responses have been documented in the HPI. ROS Other: All systems not noted in ROS Statement are negative. Past Medical History Past Medical History: Atrial Fibrillation, Cancer, Heart Failure, Deep Vein Thrombosis (DVT), Hyperlipidemia, Hypertension, Osteoarthritis (OA), Pulmonary Embolus (PE), Thyroid Disorder, Vascular Disorder Additional Past Medical History / Comment(s): THYROID CANCER with surgery/radio active tablets, bilateral lower leg cellulitis 2015, varicose veins, past DVTs and PEs, short term memory problems, episodes of hypotension, hiatal hernia, gastritis. Insomnia. Depression. Atrial fibrillation. History of Any Multi-Drug Resistant Organisms: None Reported Past Surgical History: Cardiac Valve Replacement, Heart Catheterization, Joint Replacement Additional Past Surgical History / Comment(s): Thyroidectomy, total left knee replacement, JAYDE/CVN, 09/29/16 aortic valve replacement with bovine valve and mitral valve repair, mediastinal lymph node biopsy, sternal chest wound debridement/ wound vac/sternotomy and muscle straps, COLONOSCOPY, EGD, bilateral cataract removals and L eye was injured requirin surgery to remove blood. Past Anesthesia/Blood Transfusion Reactions: No Reported Reaction Additional Past Anesthesia/Blood Transfusion Reaction / Comment(s): Pt has received blood in past without reaction. Past Psychological History: Depression Smoking Status: Former smoker Past Alcohol Use History: Rare Past Drug Use History: None Reported - Past Family History Father Family Medical History: Coronary Artery Disease (CAD) Additional Family Medical History / Comment(s): Father at the age pf 76yrs from heart problems. Mother Family Medical History: Vascular Disorder Additional Family Medical History / Comment(s): Mother had varicosities. She lived to be 92 yrs old. Brother(s) Family Medical History: Cancer Additional Family Medical History / Comment(s): LIVER CA. BLOOD CLOT. General Exam - General Exam Comments Initial Comments: Constitutional: NAD, AOX3, Pt has pleasant affect. HEENT: NC/AT, trachea midline, neck supple, no lymphadenopathy. Posterior pharynx non erythematous, without exudates. External ears appear normal, without discharge. Mucous membranes moist. Eyes PERRLA, EOM intact. There is no scleral icterus. No pallor noted. Cardiopulmonary: RRR, no murmurs, rubs or gallops, no JVD noted. Lungs CTAB in anterior and posterior elam. No peripheral edema. Abdominal exam: Abdomen soft and non-distended. Abdomen non-tender to palpation in all 4 quadrants. Bowel sounds active in LLQ. No hepatosplenomegaly. No ecchymosis Neuro: CN II-XII grossly intact. No nuchal rigidity. MSK: No posterior calf tenderness bilaterally, homans sign negative bilaterally. Posterior tibialis and radial pulse +2 bilaterally. Sensation intact in upper and lower extremities. Full active ROM in upper and lower extremities, 5/5 stregnth. Gu: urinary catheter draining spontaneously Limitations: no limitations Course Vital Signs 10/24/18 17:33 Temperature 97.9 F Pulse Rate 50 L Respiratory 18 Rate Blood Pressure 109/81 O2 Sat by Pulse 97 Oximetry Medical Decision Making - Medical Decision Making 73-year-old male patient with complex past OB history most pertinent for recent bladder rupture and surgery presents to ED for urinary catheter dysfunction. Patient reports that this morning he emptied his catheter which was normal, however reports that he has had no drainage since early this morning. Patient states that he does feel that he needs to urinate, however denies any pain hematuria abdominal pain chest pain shortness of breath nausea vomiting diarrhea or fevers chills. Denies all other complaints. Patient was signs stable, afebrile. Catheter was troubleshoot by RN, draining spontaneously. 800mL drained. UA displayed 50 red blood cells, moderate leukoesterase, 5 white blood cells. Patient will be empirically treated for urinary tract infection with Keflex. Follow up with primary care provider as well as urologist. Patient was return to ER if condition worsens in any way. Case discussed with Dr. Jimenez. - Lab Data Lab Results 10/24/18 Range/Units 18:02 Urine Color Yellow Urine Appearance Clear (Clear) Urine pH 5.5 (5.0-8.0) Ur Specific [place] 1.014 (1.001-1.035) Urine Protein Negative (Negative) Urine Glucose (UA) Negative (Negative) Urine Ketones Negative (Negative) Urine Blood Moderate H (Negative) Urine Nitrite Negative (Negative) Urine Bilirubin Negative (Negative) Urine Urobilinogen <2.0 (<2.0) mg/dL Ur Leukocyte Esterase Moderate H (Negative) Urine RBC 52 H (0-5) /hpf Urine Mucus Rare H (None) /hpf Urine Yeast (Budding) Rare H (None) /hpf Disposition Clinical Impression: Urinary catheter dysfunction Disposition: HOME SELF-CARE Condition: Stable Instructions (If sedation given, give patient instructions): Duong Catheter Placement and Care (ED) Additional Instructions: Patient to adhere to previously discussed treatment plan and will take medication(s) as directed. Patient to follow up with PCP in 1-2 days. Patient to return to ED if symptoms do not improve. Take medication as directed. Follow up with primary care provider and urologist in 1-2 days. Prescriptions: Cephalexin [Keflex] 500 mg PO Q6HR 10 Days cap Is patient prescribed a controlled substance at d/c from ED?: No Referrals: Shabnam Chew MD [Primary Care Provider] - 1-2 days
[2018-10-24 18:50] VITALS: BP 108/83; PULSE 87; TEMP 97.8
== END 2018-10-24 19:00 | disposition home or self-care (01) ==
LOC: EC 17:25
DX: T83.098A Other mechanical complication of other urinary catheter, initial encounter (principal); N39.0 Urinary tract infection, site not specified; I48.91 Unspecified atrial fibrillation; I11.0 Hypertensive heart disease with heart failure; I50.9 Heart failure, unspecified; E78.5 Hyperlipidemia, unspecified; M19.90 Unspecified osteoarthritis, unspecified site; E07.9 Disorder of thyroid, unspecified; F32.9 Major depressive disorder, single episode, unspecified; Z85.850 Personal history of malignant neoplasm of thyroid; Z86.711 Personal history of pulmonary embolism; Z86.718 Personal history of other venous thrombosis and embolism; Z87.19 Personal history of other diseases of the digestive system; Z87.891 Personal history of nicotine dependence; Z95.2 Presence of prosthetic heart valve; Z96.652 Presence of left artificial knee joint; Z98.890 Other specified postprocedural states; Z79.01 Long term (current) use of anticoagulants; Z79.82 Long term (current) use of aspirin; Z79.890 Hormone replacement therapy; Z79.899 Other long term (current) drug therapy
CPT/HCPCS: 81001; 87086; 99284

== ENCOUNTER → 2018-10-31 | Outpatient (CLI) | payer MEDICARE, OTHER ==
--- NOTE | 2018-10-31 09:29 | FL ---
EXAMINATION TYPE: FL voiding cystourethrogram DATE OF EXAM: 10/31/2018 COMPARISON: 10/13/[address] 10/12/2018 HISTORY: 73-year-old male with bladder rupture status post repair and indwelling Duong catheter. Total fluoroscopy time: 1 minute 26 seconds. Total Images: 26. TECHNIQUE: Preliminary pilot image of the pelvis were obtained. Under fluoroscopic observation, a tot al of 300 mL Cystografin was administered into the bladder via the indwelling Duong catheter. Fluoros copy would say screens and overhead radiographs were obtained. FINDINGS: Pv Design [employer] Installation Technician view shows skin yoli along the right paramedian anterior pelvis. Gallstones are demonstrated . The urinary bladder fills normally. Some trabeculations are present. There is slight irregularity to the right posterolateral bladder wall that could represent site of repair or prominent focal trabecul ations. The bladder was continued to fill up to 300 mL. Oblique images were acquired as well as lateral view. There is no intraperitoneal or extraperitoneal extension of contrast. No vesicoureteral reflux is en countered. The patient was encouraged to void around the catheter following bladder filling. Patient was unable to void around the catheter. IMPRESSION: Bladder filled to 300 mL. No intraperitoneal or extraperitoneal bladder extravasation is identified. No residual leak seen. The patient was unable to void around the catheter.
== END | disposition home or self-care (01) ==
LOC: RADFLMAIN 08:01
PROVIDERS: ATTEND Urology
DX: N32.89 Other specified disorders of bladder (principal)
CPT/HCPCS: 74455; Q9962

== ENCOUNTER → 2019-01-30 | Outpatient (CLI) | payer MEDICARE, OTHER ==
[2019-01-30 14:57] LABS: Anisocytosis Slight; Basophils # (A) 0.1 k/uL (0-0.2); Basophils % (A) 1 %; Eosinophils # (A) 0.1 k/uL (0-0.7); Eosinophils % (A) 2 %; HCT 43.8 % (39.0-53.0); Lymphocytes # (A) 1.7 k/uL (1.0-4.8); Lymphocytes % (A) 21 %; MCH 28.3 pg (25.0-35.0); MCHC 32.1 g/dL (31.0-37.0); MCV 88.4 fL (80.0-100.0); Mean Platelet Volume 7.8; Monocytes # (A) 0.7 k/uL (0-1.0); Monocytes % (A) 9 %; Neutrophils # (A) 5.4 k/uL (1.3-7.7); Neutrophils % (A) 65 %; Platelet Count 351 k/uL (150-450); RBC 4.95 m/uL (4.30-5.90); RDW 19.7 % (11.5-15.5); WBC 8.3 k/uL (3.8-10.6)
[2019-01-30 19:28] LABS: T4, Free (Free Thyroxine) 2.2 ng/dL (0.80-1.80)
[2019-01-30 19:35] LABS: African American GFR (CKD) 44.7 (60.0-200.0); Albumin 4.2 g/dL (3.80-4.90); Albumin/Globulin Ratio 1.56 (1.60-3.17); BUN/Creat Ratio 27.65 Ratio (12.00-20.00); Calcium 8.5 mg/dL (8.7-10.3); Globulin 2.7 g/dL (1.6-3.3); LDL Cholesterol,Calculated 62.6 mg/dL (0.0-131.0); Potassium 3.8 mmol/L (3.5-5.5); Total Bilirubin 0.9 mg/dL (0.3-1.2); Total Protein 6.9 g/dL (6.2-8.2); VLDL Calculation 30.4 mg/dL (5.00-40.00)
== END | disposition home or self-care (01) ==
LOC: LABWHC1 12:43
PROVIDERS: ATTEND Family Medicine
DX: E03.9 Hypothyroidism, unspecified (principal); E78.5 Hyperlipidemia, unspecified; R73.01 Impaired fasting glucose; D64.9 Anemia, unspecified
CPT/HCPCS: 36415; 80053; 80061; 84439; 84443; 85025

== ENCOUNTER 2019-05-29 22:09 | Inpatient (IN) | payer MEDICARE ==
--- NOTE | 2019-05-29 22:35 | ED ---
Weakness HPI - General Chief complaint: Weakness Stated complaint: Weakness Time Seen by Provider: 05/29/19 22:29 Source: patient, EMS Mode of arrival: EMS - History of Present Illness Initial comments: Jn is a 74-year-old gentleman with an extensive past medical history who presents the ER today for evaluation of fever, chills, generalized weakness. Patient denies any chest pain palpitations nausea vomiting diarrhea or recent illness. He reports that for the past couple days he just feels worn down has generalized body aches he feels weak he's been shaking with chills. His reports that she finally convinced him to come the ER but he was so weak she couldn't help him to the car so EMS was called. - Related Data Home Medications Medication Instructions Recorded Confirmed Aspirin 81 mg PO DAILY 06/07/17 10/24/18 Atorvastatin Calcium [Lipitor] 10 mg PO DAILY 06/07/17 10/24/18 Donepezil [Aricept] 5 mg PO DAILY 10/05/18 10/24/18 Levothyroxine Sodium [Synthroid] 150 mcg PO DAILY@0600 10/05/18 10/24/18 Methylphenidate HCl [Ritalin] 10 mg PO BID@0700,1400 10/05/18 10/24/18 Metoprolol Tartrate 25 mg PO BID@0700,1400 10/05/18 10/24/18 Venlafaxine HCl ER [Effexor XR] 75 mg PO DAILY 10/05/18 10/24/18 Furosemide [Lasix] 40 mg PO DAILY 10/12/18 10/24/18 Warfarin [Coumadin] 4.5 mg PO HS 10/24/18 10/24/18 Previous Rx's Medication Instructions Recorded Spironolactone [Aldactone] 25 mg PO DAILY #7 tab 01/03/17 Cephalexin [Keflex] 500 mg PO Q6HR 10 Days cap 10/24/18 Allergies Allergy/AdvReac Type Severity Reaction Status Date / Time No Known Allergies Allergy Verified 10/24/18 17:44 Review of Systems ROS Statement: Those systems with pertinent positive or pertinent negative responses have been documented in the HPI. ROS Other: All systems not noted in ROS Statement are negative. Past Medical History Past Medical History: Atrial Fibrillation, Cancer, Heart Failure, Deep Vein Thrombosis (DVT), Hyperlipidemia, Hypertension, Osteoarthritis (OA), Pulmonary Embolus (PE), Thyroid Disorder, Vascular Disorder Additional Past Medical History / Comment(s): THYROID CANCER with surgery/radio active tablets, bilateral lower leg cellulitis 2016, varicose veins, past DVTs and PEs, short term memory problems, episodes of hypotension, hiatal hernia, gastritis. Insomnia. Depression. Atrial fibrillation. History of Any Multi-Drug Resistant Organisms: None Reported Past Surgical History: Cardiac Valve Replacement, Heart Catheterization, Joint Replacement Additional Past Surgical History / Comment(s): Thyroidectomy, total left knee replacement, JAYDE/CVN, 09/29/16 aortic valve replacement with bovine valve and mitral valve repair, mediastinal lymph node biopsy, sternal chest wound debridement/ wound vac/sternotomy and muscle straps, COLONOSCOPY, EGD, bilateral cataract removals and L eye was injured requirin surgery to remove blood. Past Anesthesia/Blood Transfusion Reactions: No Reported Reaction Additional Past Anesthesia/Blood Transfusion Reaction / Comment(s): Pt has received blood in past without reaction. Past Psychological History: Depression Smoking Status: Former smoker Past Alcohol Use History: Rare Past Drug Use History: None Reported - Past Family History Father Family Medical History: Coronary Artery Disease (CAD) Additional Family Medical History / Comment(s): Father at the age pf 76yrs from heart problems. Mother Family Medical History: Vascular Disorder Additional Family Medical History / Comment(s): Mother had varicosities. She lived to be 92 yrs old. Brother(s) Family Medical History: Cancer Additional Family Medical History / Comment(s): LIVER CA. BLOOD CLOT. General Exam Limitations: no limitations General appearance: alert Head exam: Present: atraumatic, normocephalic Eye exam: Present: normal appearance, EOMI, scleral icterus, other (Right eye with postsurgical changes) ENT exam: Present: normal exam Neck exam: Present: full ROM. Absent: meningismus Respiratory exam: Present: normal lung sounds bilaterally, other (Chest wall with significant surgical changes, nothing acute) Cardiovascular Exam: Present: tachycardia GI/Abdominal exam: Present: hernia, other (Medical surgical changes) Extremities exam: Present: normal capillary refill. Absent: pedal edema Neurological exam: Present: alert, oriented X3. Absent: altered Psychiatric exam: Present: normal affect, normal mood Skin exam: Present: warm, dry Course Vital Signs 05/29/19 05/29/1905/29/19 22:11 22:13 22:30 Temperature 98.8 F Pulse Rate 106 H Respiratory 18 Rate Blood Pressure 100/72 100/72 O2 Sat by Pulse 95 94 L 93 L Oximetry 05/29/19 05/29/19 23:00 23:39 Temperature Pulse Rate 108 H Respiratory 18 Rate Blood Pressure 94/62 95/62 O2 Sat by Pulse 97 Oximetry EKG Findings - EKG Comments: EKG Findings:: She was obtained due to tachycardia, EKG was obtained at 2214, rate is 108 rhythm is sinus with a right bundle-branch block. No acute ST e levations or depressions or evidence of acute ischemia or infarction. Medical Decision Making - Medical Decision Making Patient was seen and evaluated upon arrival to the emergency department History was obtained from patient, , review of medical record as well as EMS Upon my evaluation patient had an episode of tachycardia with a heart in the 150s however resolve spontaneously after under 1 minute. Also had an oral temp of 101.4F IV fluids and antipyretics were ordered 74 her old gentleman with extensive past medical history presenting is generalized weakness and malaise, no focal complaints, concerning for influenza however full septic workup was initiated IV fluids infusing Resulted with psychosis, chronic kidney disease, Lactic acid at 2.0, transaminitis of unknown origin, however influenza was negative CT of the abdomen with chronic findings, gallbladder with multiple stones, no common bile duct dilatation no note of gallbladder edema or signs of cholecystitis on CT Given the findings and the patient's, located medical history and empiric dose of Zosyn was ordered for sepsis of unknown origin Patient care was discussed with Dr. Momin who agrees with plan for admission Patient and were updated on findings and plan for admission After admission was discussed with admitting physician gallbladder ultrasound resulted with findings of acute cholecystitis, patient has been treated empirically with Zosyn, general surgery and gastroenterology will be consult and Patient does have fever, tachycardia, hypertension and jaundice however no altered mental status or right upper quadrant pain on exam care was discussed with general surgeon Dr. Robledo who is aware, agrees with plan for IV fluids antibiotics and will evaluate the patient and the morning. Dr Dean was updated on US findings and surgical consult. - Lab Data Result diagrams: 05/29/19 22:25 05/29/19 22:25 Lab Results 05/29/19 05/29/19 05/29/19 Range/Units 22:25 22:25 22:25 WBC 12.5 H (3.8-10.6) k/uL RBC 5.22 (4.30-5.90) m/uL Hgb 14.7 (13.0-17.5) gm/dL Hct 45.4 (39.0-53.0) % MCV 87.1 (80.0-100.0) fL MCH 28.3 (25.0-35.0) pg MCHC 32.5 (31.0-37.0) g/dL RDW 17.2 H (11.5-15.5) % Plt Count 209 (150-450) k/uL Neutrophils % 97 % Lymphocytes % 2 % Monocytes % 1 % Eosinophils % 0 % Basophils % 0 % Neutrophils # 12.1 H (1.3-7.7) k/uL Lymphocytes # 0.2 L (1.0-4.8) k/uL Monocytes # 0.1 (0-1.0) k/uL Eosinophils # 0.1 (0-0.7) k/uL Basophils # 0.0 (0-0.2) k/uL Anisocytosis Slight PT (9.0-12.0) sec INR (<1.2) APTT (22.0-30.0) sec Sodium 136 L (137-145) mmol/L Potassium 3.9 (3.5-5.1) mmol/L Chloride 101 (98-107) mmol/L Carbon Dioxide 20 L (22-30) mmol/L Anion Gap 15 mmol/L BUN 36 H (9-20) mg/dL Creatinine 1.75 H (0.66-1.25) mg/dL Est GFR (CKD-EPI)AfAm 43 (>60 ml/min/1.73 sqM) Est GFR (CKD-EPI)NonAf 37 (>60 ml/min/1.73 sqM) Glucose 103 H (74-99) mg/dL Plasma Lactic Acid Samir 2.0 (0.7-2.0) mmol/L Calcium 8.7 (8.4-10.2) mg/dL Total Bilirubin 10.1 H (0.2-1.3) mg/dL AST 205 H (17-59) U/L ALT 269 H (21-72) U/L Alkaline Phosphatase 362 H (38-126) U/L Creatine Kinase 66 (55-170) U/L Total Protein 7.8 (6.3-8.2) g/dL Albumin 4.1 (3.5-5.0) g/dL Urine Color Urine Appearance (Clear) Urine pH (5.0-8.0) Ur Specific [place] (1.001-1.035) Urine Protein (Negative) Urine Glucose (UA) (Negative) Urine Ketones (Negative) Urine Blood (Negative) Urine Nitrite (Negative) Urine Bilirubin (Negative) Urine Urobilinogen (<2.0) mg/dL Ur Leukocyte Esterase (Negative) Urine RBC (0-5) /hpf Urine WBC (0-5) /hpf Urine Mucus (None) /hpf Influenza Type A RNA (Not Detectd) Influenza Type B (PCR) (Not Detectd) 05/29/19 05/29/19 05/29/19 Range/Units 22:25 22:57 23:12 WBC (3.8-10.6) k/uL RBC (4.30-5.90) m/uL Hgb (13.0-17.5) gm/dL Hct (39.0-53.0) % MCV (80.0-100.0) fL MCH (25.0-35.0) pg MCHC (31.0-37.0) g/dL RDW (11.5-15.5) % Plt Count (150-450) k/uL Neutrophils % % Lymphocytes % % Monocytes % % Eosinophils % % Basophils % % Neutrophils # (1.3-7.7) k/uL Lymphocytes # (1.0-4.8) k/uL Monocytes # (0-1.0) k/uL Eosinophils # (0-0.7) k/uL Basophils # (0-0.2) k/uL Anisocytosis PT 11.1 (9.0-12.0) sec INR 1.0 (<1.2) APTT 25.8 (22.0-30.0) sec Sodium (137-145) mmol/L Potassium (3.5-5.1) mmol/L Chloride (98-107) mmol/L Carbon Dioxide (22-30) mmol/L Anion Gap mmol/L BUN (9-20) mg/dL Creatinine (0.66-1.25) mg/dL Est GFR (CKD-EPI)AfAm (>60 ml/min/1.73 sqM) Est GFR (CKD-EPI)NonAf (>60 ml/min/1.73 sqM) Glucose (74-99) mg/dL Plasma Lactic Acid Samir (0.7-2.0) mmol/L Calcium (8.4-10.2) mg/dL Total Bilirubin (0.2-1.3) mg/dL AST (17-59) U/L ALT (21-72) U/L Alkaline Phosphatase (38-126) U/L Creatine Kinase (55-170) U/L Total Protein (6.3-8.2) g/dL Albumin (3.5-5.0) g/dL Urine Color Dark Yellow Urine Appearance Cloudy (Clear) Urine pH 5.0 (5.0-8.0) Ur Specific [place] 1.014 (1.001-1.035) Urine Protein Trace H (Negative) Urine Glucose (UA) Negative (Negative) Urine Ketones Negative (Negative) Urine Blood Trace H (Negative) Urine Nitrite Negative (Negative) Urine Bilirubin 2+ H (Negative) Urine Urobilinogen 4.0 (<2.0) mg/dL Ur Leukocyte Esterase Negative (Negative) Urine RBC 3 (0-5) /hpf Urine WBC 1 (0-5) /hpf Urine Mucus Rare H (None) /hpf Influenza Type A RNA Not Detected (Not Detectd) Influenza Type B (PCR) Not Detected (Not Detectd) Disposition Clinical Impression: Transaminitis, Acute cholecystitis, Sepsis Disposition: ADMITTED IP TO THIS HOSP
[2019-05-29 23:12] LABS: Anisocytosis Slight; Basophils % (A) 0 %; Eosinophils # (A) 0.1 k/uL (0-0.7); Eosinophils % (A) 0 %; HCT 45.4 % (39.0-53.0); HGB 14.7 gm/dL (13.0-17.5); Lymphocytes # (A) 0.2 k/uL (1.0-4.8); Lymphocytes % (A) 2 %; MCH 28.3 pg (25.0-35.0); MCHC 32.5 g/dL (31.0-37.0); MCV 87.1 fL (80.0-100.0); Mean Platelet Volume 6.9; Monocytes # (A) 0.1 k/uL (0-1.0); Monocytes % (A) 1 %; Neutrophils # (A) 12.1 k/uL (1.3-7.7); Neutrophils % (A) 97 %; Platelet Count 209 k/uL (150-450); RBC 5.22 m/uL (4.30-5.90); RDW 17.2 % (11.5-15.5); WBC 12.5 k/uL (3.8-10.6)
--- NOTE | 2019-05-29 23:12 | XR ---
EXAMINATION TYPE: XR chest 2V DATE OF EXAM: 05/29/2019 COMPARISON: 10/04/2018 HISTORY: Fever TECHNIQUE: Frontal and lateral views of the chest are obtained. FINDINGS: There is coarse interstitial infiltrate in the mid and lower lung elam. Heart is slightl y enlarged. There is mild atelectasis at the lung bases. Bony thorax is intact. IMPRESSION: Increased pulmonary interstitial density compared to old exam. Inspiration decreased com pared to old exam with mild basilar atelectasis. No obvious heart failure. There is chronic pleural t hickening at the right posterior lung base unchanged.
[2019-05-29 23:19] LABS: Partial Thromboplastin Time 25.8 sec (22.0-30.0); Prothrombin Time 11.1 sec (9.0-12.0)
[2019-05-29 23:22] LABS: Albumin 4.1 g/dL (3.5-5.0); Calcium 8.7 mg/dL (8.4-10.2); Potassium 3.9 mmol/L (3.5-5.1); Total Bilirubin 10.1 mg/dL (0.2-1.3); Total Protein 7.8 g/dL (6.3-8.2)
[2019-05-29 23:26] LABS: Appearance,Urine Cloudy (Clear); Bilirubin,Urine 2+ (Negative); Blood,Urine Trace (Negative); Color,Urine Dark Yellow; Glucose,Urine (UA) Negative (Negative); Ketones,Urine Negative (Negative); Leukocyte Esterase,Urine Negative (Negative); Mucus,Urine Rare /hpf; Nitrite,Urine Negative (Negative); Protein,Urine Trace (Negative); RBC,Urine 3 /hpf (0-5); Specific Gravity,Urine 1.014 (1.001-1.035)
[2019-05-29] MEDS ORDERED: SODIUM CHLORIDE 0.9% 1,000 ML IV ONE (23:30)
[2019-05-29] MEDS ORDERED: IBUPROFEN 800 MG TAB PO STA (23:31)
[2019-05-29] MEDS: SODIUM CHLORIDE 0.9% 1,000 ML IV SCH (23:40)
--- NOTE | 2019-05-30 00:15 | CT ---
EXAMINATION TYPE: CT abdomen pelvis wo con DATE OF EXAM: 05/30/2019 COMPARISON: 10/12/2018 HISTORY: Abd pain, weakness CT DLP: 1083.40 mGycm Automated exposure control for dose reduction was used. There is some patchy atelectasis right posterior lung base. There is pleural thickening right lung ba se. There is no pericardial effusion. There is minimal atelectasis left lung base. Liver shows no focal defect. There are numerous calcified gallstones in the dependent gallbladder. Th e bile ducts are not dilated. Spleen is intact. Stomach is intact. There is no pancreatic mass. There is no adrenal mass. Kidneys have normal size. There is no hydronephrosis. Ureters are not dilat ed. There is no retroperitoneal adenopathy. Bladder distends smoothly. There is no inguinal hernia. P rostate is enlarged. There is no mesenteric edema. There is no ascites or free air. There is no sign of a bowel obstructio n. There is broad-based lower abdominal wall ventral hernia that contains fat. There are spondylotic changes in the lumbar spine. There is a L5 spondylolysis with first-degree L5-S1 spondylolisthesis. T he bony pelvis appears intact. There is slight anterior wedging of L1 and T12 and T10 vertebra up to 20%. IMPRESSION: Pleural and pulmonary scarring at the lung bases mainly on the right side not significantly different than last exam. There is clearing of the large anterior abdominal wall and pelvis hematoma compared to old exam. Abdominal wall ventral hernia unchanged. Mild compression fractures unchanged.
--- NOTE | 2019-05-30 00:54 | US ---
EXAMINATION TYPE: US gallbladder DATE OF EXAM: 05/30/2019 COMPARISON: CT 2019 CLINICAL HISTORY: transaminitis. Transaminitis. HTN, Hyperlipidemia. Nausea, vomiting. EXAM MEASUREMENTS: Liver Length: 16.2 cm Gallbladder Wall: 0.43 cm CBD: 1.2 cm Right Kidney: 9.8 x 4.7 x 5.9 cm Limited due to overlying bowel gas. Pancreas: Not visualized. Liver: Limited. Gallbladder: Hyperechoic foci with posterior shadowing seen within the gallbladder. Largest appears to measure: 1.7 x 1.5 x 1.1 cm. Wall appears thickened. Evidence for sonographic Mckeon's sign: no CBD: Appears to be dilated. Right Kidney: No hydronephrosis or masses seen IMPRESSION: There are numerous gallstones. Gallbladder appears dilated and suggestive of cholecystiti s. Common bile duct mildly dilated. Intrahepatic bile ducts upper limit of normal. This probably rela latisha to chronic gallbladder dysfunction. No focal liver defect. No ascites.
[2019-05-30] MEDS ORDERED: NALOXONE 0.4 MG/ML 1 ML VIAL IV PRN (01:20)
[2019-05-30] MEDS: PIPERACILLIN-TAZOBACTAM 3.375 GM in SODIUM CHLORIDE 0.9% 100 ML IVPB SCH ×3 (01:50→20:15)
--- NOTE | 2019-05-30 03:40 | P.HPIM ---
History of Present Illness H&P Date: 05/30/19 Chief Complaint: vomiting 74 year old male with history of CABG complicated by sternal infection patient comes in today due to his being concerned that he has been throwing up for the past 2-3 days. he reports that all started after taoist on Tuesday, when he threw up his lunch. and then on Tuesday he had another episode of vomiting his food after eating , denies any bilious or bloody vomiting, . denies any other associated symptoms like fever, chills, abd pain, GI bleeidng, diarrhea or urinary symptoms. denies any chest pain or trouble breathing. In the ED , patient was hypotensive, but he reports that his baseline is low blood pressure. and besides he was asymptomatic deniying any dizziness or lightheadedness. patient denies any sick contacts, or unsanitary food or drink denies any traveling recently . patient has no similar symptoms. in the ED he was found to have elevated liver enzymes and fever, US of the abd showed gall stones and picture suggestive of cholecystitis. patient admitted for cute cholangitis. and was started on ABx after getting cultures. general surgery was notified. patient reports that he takes eliquis at home, but he did not know the full list of his medications. he currently feels comfortable, asymptomatic. Review of Systems Pertinent positives as noted in HPI. All other systems were reviewed and are negative Past Medical History Past Medical History: Atrial Fibrillation, Cancer, Heart Failure, Deep Vein Thrombosis (DVT), Hyperlipidemia, Hypertension, Osteoarthritis (OA), Pulmonary Embolus (PE), Thyroid Disorder, Vascular Disorder Additional Past Medical History / Comment(s): THYROID CANCER with surgery/radio active tablets, bilateral lower leg cellulitis 2016, varicose veins, past DVTs and PEs, short term memory problems, episodes of hypotension, hiatal hernia, gastritis. Insomnia. Depression. Atrial fibrillation. History of Any Multi-Drug Resistant Organisms: None Reported Past Surgical History: Cardiac Valve Replacement, Heart Catheterization, Joint Replacement Additional Past Surgical History / Comment(s): Thyroidectomy, total left knee replacement, JAYDE/CVN, 09/29/16 aortic valve replacement with bovine valve and mi tral valve repair, mediastinal lymph node biopsy, sternal chest wound debridement/ wound vac/sternotomy and muscle straps, COLONOSCOPY, EGD, bilateral cataract removals and L eye was injured requirin surgery to remove blood. Past Anesthesia/Blood Transfusion Reactions: No Reported Reaction Additional Past Anesthesia/Blood Transfusion Reaction / Comment(s): Pt has received blood in past without reaction. Past Psychological History: Depression Smoking Status: Former smoker Past Alcohol Use History: Rare Past Drug Use History: None Reported - Past Family History Father Family Medical History: Coronary Artery Disease (CAD) Additional Family Medical History / Comment(s): Father at the age pf 76yrs from heart problems. Mother Family Medical History: Vascular Disorder Additional Family Medical History / Comment(s): Mother had varicosities. She lived to be 92 yrs old. Brother(s) Family Medical History: Cancer Additional Family Medical History / Comment(s): LIVER CA. BLOOD CLOT. Medications and Allergies Home Medications Medication Instructions Recorded Confirmed Type Spironolactone [Aldactone] 25 mg PO DAILY #7 tab 01/03/17 10/24/18 Rx Aspirin 81 mg PO DAILY 06/07/17 10/24/18 History Atorvastatin Calcium [Lipitor] 10 mg PO DAILY 06/07/17 10/24/18 History Donepezil [Aricept] 5 mg PO DAILY 10/05/18 10/24/18 History Levothyroxine Sodium [Synthroid] 150 mcg PO DAILY@0600 10/05/18 10/24/18 History Methylphenidate HCl [Ritalin] 10 mg PO BID@0700,1400 10/05/18 10/24/18 History Metoprolol Tartrate 25 mg PO BID@0700,1400 10/05/18 10/24/18 History Venlafaxine HCl ER [Effexor XR] 75 mg PO DAILY 10/05/18 10/24/18 History Furosemide [Lasix] 40 mg PO DAILY 10/12/18 10/24/18 History Cephalexin [Keflex] 500 mg PO Q6HR 10 Days cap 10/24/18 Rx Warfarin [Coumadin] 4.5 mg PO HS 10/24/18 10/24/18 History Allergies Allergy/AdvReac Type Severity Reaction Status Date / Time No Known Allergies Allergy Verified 10/24/18 17:44 Physical Exam Vitals: Vital Signs Temp Pulse Resp BP Pulse Ox 05/29/19 23:39 108 H 18 95/62 97 05/29/19 23:00 94/62 05/29/19 22:30 100/72 93 L 05/29/19 22:13 94 L 05/29/19 22:11 98.8 F 106 H 18 100/72 95 Intake and Output 05/29/19 05/29/19 05/30/19 14:59 22:59 06:59 Other: Weight 90.718 kg 90.718 kg Constitutional: No acute distress, conversant, pleasant Eyes: hent jaundice, moist conjunctiva, no lid-lag Pupils equal round reactive to light ENMT: NC/AT Oropharynx clear, no erythema, exudates Neck: Supple, FROM, no masses, or JVD No carotid bruits No thyromegaly Lungs: Clear to auscultation Clear to percussion Normal respiratory effort, no accessory muscle use sternal area with skin flap from prior plastic surgery Cardiovascular: Heart regular in rate and rhythm, No murmurs, gallops, or rubs No peripheral edema Abdominal: Soft, no tenderness, Mckeon's sign is negative. Nontender, no guarding, rebound or rigidity Abdomen moving with respiration Normoactive bowel sounds No hepatomegaly, No splenomegaly No palpable mass patient has abdominal wall hernia midline laparotomy scar Skin: Normal temperature, tone, texture, turgor No induration No subcutaneous nodules No rash, lesions No ulcers Extremities: No digital cyanosis No clubbing Pedal pulses intact and symmetrical Radial pulses intact and symmetrical No calf tenderness Psychiatric: Alert and oriented to person, place and time Appropriate affect fair judgment Neuro Muscles Strength 4/5 in all 4 extremities Sensation to light touch grossly present throughout Cranial nerves II-XII grossly intact No focal sensory deficits Lymphatics: no palpable cervical or supraclavicular , or inguinal lymph nodes Results CBC & Chem 7: 05/29/19 22:25 05/29/19 22:25 Labs: Abnormal Lab Results - Last 24 Hours (Table) 05/29/19 05/29/19 05/29/19 Range/Units 22:25 22:25 23:12 WBC 12.5 H (3.8-10.6) k/uL RDW 17.2 H (11.5-15.5) % Neutrophils # 12.1 H (1.3-7.7) k/uL Lymphocytes # 0.2 L (1.0-4.8) k/uL Sodium 136 L (137-145) mmol/L Carbon Dioxide 20 L (22-30) mmol/L BUN 36 H (9-20) mg/dL Creatinine 1.75 H (0.66-1.25) mg/dL Glucose 103 H (74-99) mg/dL Total Bilirubin 10.1 H (0.2-1.3) mg/dL AST 205 H (17-59) U/L ALT 269 H (21-72) U/L Alkaline Phosphatase 362 H (38-126) U/L Urine Protein Trace H (Negative) Urine Blood Trace H (Negative) Urine Bilirubin 2+ H (Negative) Urine Mucus Rare H (None) /hpf Thrombosis Risk Factor Assmnt - Choose All That Apply Any of the Below Risk Factors Present?: Yes Each Factor Represents 1 point: Obesity (BMI >25) Other Risk Factors: Yes Each Risk Factor Represents 3 Points: Age 75 years or older Other congenital or acquired thrombophilia - If yes, enter type in comment: No Thrombosis Risk Factor Assessment Total Risk Factor Score: 4 Thrombosis Risk Factor Assessment Level: Moderate Risk Assessment and Plan Assessment: 74-year-old male with history of CABG, A. fib, hypertension, hypothyroid, thyroid cancer. Presented due to repeated vomiting over the past few days otherwise asymptomatic. In the ED he was found to have elevated liver enzymes ultrasound of the abdomen suggested gallstones with cholecystitis patient was admitted as an inpatient with anticipated length of stay more than 2 midnights for treatment of acute cholangitis and surgical evaluation Plan: sepsis acute cholangitis with gallstones elevated liver enzymes and hyperbilirubinemia Nothing by mouth Follow-up cultures Monitor vital signs IV fluid Zosyn General surgery consult Abdominal ultrasound showed cholecystitis with gallstones hold Eliquis Chronic conditions History of CAD status post CABG History of CHF currently compensated Hypotension, asymptomatic History of thyroid cancer and hypothyroidism A. fib on blood thinner Eliquis Need to verify home meds patient is full code DVT prophylaxis: on Eliquis at home for A. fib Discussed with: Patient, ER, RN Anticipated length of stay more than [address]: pending clinical course A total of 60 minutes was spent on the care of this complex patient more than 50% of the time was spent in counseling and care coordination.
[2019-05-30] MEDS ORDERED: LEVOTHYROXINE 50 MCG TAB PO SCH (06:00)
[2019-05-30] MEDS: SODIUM CHLORIDE 0.9% 1,000 ML IV SCH ×2 (06:52→13:49)
[2019-05-30 06:58] LABS: INR 1.2 (<1.2); Prothrombin Time 12.1 sec (9.0-12.0)
[2019-05-30] MEDS ORDERED: METOPROLOL TARTRATE 25 MG TAB PO SCH (07:00)
[2019-05-30 08:02] LABS: Anisocytosis Slight; Basophils % (A) 0 %; Eosinophils % (A) 0 %; HCT 40.6 % (39.0-53.0); HGB 12.9 gm/dL (13.0-17.5); Hypochromasia Moderate; Lymphocytes # (A) 0.6 k/uL (1.0-4.8); Lymphocytes % (A) 3 %; MCH 28.5 pg (25.0-35.0); MCHC 31.8 g/dL (31.0-37.0); MCV 89.8 fL (80.0-100.0); Mean Platelet Volume 7.3; Monocytes # (A) 0.9 k/uL (0-1.0); Monocytes % (A) 5 %; Neutrophils # (A) 15.7 k/uL (1.3-7.7); Neutrophils % (A) 90 %; Platelet Count 156 k/uL (150-450); RBC 4.52 m/uL (4.30-5.90); RDW 17.2 % (11.5-15.5); WBC 17.5 k/uL (3.8-10.6)
[2019-05-30 08:07] LABS: Albumin 3.2 g/dL (3.5-5.0); Calcium 7.9 mg/dL (8.4-10.2); Potassium 4.1 mmol/L (3.5-5.1); Total Bilirubin 9.1 mg/dL (0.2-1.3); Total Protein 6.6 g/dL (6.3-8.2)
[2019-05-30] MEDS: HEPARIN SODIUM,PORCINE 5,000 UNIT/ML 1 ML VIAL SQ SCH ×2 (08:21→15:38)
[2019-05-30] MEDS: PANTOPRAZOLE 40 MG/10 ML VIAL IVP SCH (08:21)
[2019-05-30] MEDS: SODIUM CHLORIDE 0.9% 500 ML 500 ML IV SCH ×3 (09:24→11:51)
--- NOTE | 2019-05-30 10:56 | ECHOF ---
Referral Reason:echo h o Afib MEASUREMENTS -------- HEIGHT: 172.7 cm WEIGHT: 90.7 kg BP: 101/57 RVIDd: 2.5 cm (< 3.3) IVSd: 1.2 cm (0.6 - 1.1) LVIDd: 3.5 cm (3.9 - 5.3) LVPWd: 1.2 cm (0.6 - 1.1) IVSs: 1.8 cm LVIDs: 2.8 cm LVPWs: 1.7 cm LA Diam: 5.1 cm (2.7 - 3.8) LAESV Index (A-L): 51.50 ml/m Ao Diam: 3.3 cm (2.0 - 3.7) AV Cusp: 1.8 cm (1.5 - 2.6) LA Diam: 4.3 cm (2.7 - 3.8) MV EXCURSION: 19.783 mm (> 18.000) MV EF SLOPE: 44 mm/s (70 - 150) EPSS: 0.7 cm MV E Amilcar: 1.26 m/s MV DecT: 191 ms MV A Amilcar: 0.34 m/s MV E/A Ratio: 3.75 AV maxP.74 mmHg AV meanP.24 mmHg RAP: 5.00 mmHg RVSP: 30.90 mmHg FINDINGS -------- Sinus rhythm. This was a technically adequate study. The left ventricular size is normal. There is mild concentric left ventricular hypertrophy. Overa ll left ventricular systolic function is low-normal with, an EF between 50 - 55 %. Apical septum LV wall motion is hypokinetic. Inferior Hypokinesis The right ventricle is normal in size. The left atrium is markedly dilated. LA is severely dilated >40 ml/m2 The right atrial size is normal. Peak/mean gradient across the Aortic Valve is 9.74mmHg / 5.24mmHg. There is trivial regurgitation o f the bioprosthetic aortic valve. The mitral valve leaflets are mildly thickened. Mild mitral annular calcification present. Mild m itral regurgitation is present. MV Repair. Mild tricuspid regurgitation present. Right ventricular systolic pressure is normal at < 35 mmHg. There is no evidence of pulmonary hypertension. There is no pulmonic regurgitation present. The aortic root size is normal. There is no pericardial effusion. CONCLUSIONS -------- 1. Sinus rhythm. 2. This was a technically adequate study. 3. The left ventricular size is normal. 4. There is mild concentric left ventricular hypertrophy. 5. Overall left ventricular systolic function is low-normal with, an EF between 50 - 55 %. 6. Apical septum LV wall motion is hypokinetic. 7. Inferior Hypokinesis 8. The right ventricle is normal in size. 9. The left atrium is markedly dilated. 10. LA is severely dilated >40 ml/m2 11. The right atrial size is normal. 12. Peak/mean gradient across the Aortic Valve is 9.74mmHg / 5.24mmHg. 13. There is trivial regurgitation of the bioprosthetic aortic valve. 14. The mitral valve leaflets are mildly thickened. 15. Mild mitral annular calcification present. 16. Mild mitral regurgitation is present. 17. MV Repair. 18. Mild tricuspid regurgitation present. 19. Right ventricular systolic pressure is normal at < 35 mmHg. 20. There is no evidence of pulmonary hypertension. 21. There is no pulmonic regurgitation present. 22. The aortic root size is normal. 23. There is no pericardial effusion. COSMETIC DENTIST: Irasema Elam RDCS
[2019-05-30] MEDS ORDERED: ALBUTEROL NEBULIZED 2.5 MG/3 ML INHALATION PRN (11:16)
--- NOTE | 2019-05-30 11:47 | P.HPIM ---
History of Present Illness 74-year-old pleasant gentleman with extensive cardiac history came in with compensative nausea vomiting and shortness of breath. Patient is found to have transaminitis. Patient denied any right upper quadrant abdominal pain but the ultrasound of the abdomen did show cholelithiasis. There is no clear-cut clinical evidence of cholecystitis. Patient was having chills denied any fever no documented fever here. Patient does haveleukocytosis which is bit worse. Depending on ultrasound findings patient was presumed to have ascending cholangitis was started on antibiotics was given IV fluids was subsequently admitted. Patient does have a extensive cardiac history had normal ejection fraction the past may have some diastolic dysfunction patient is on Aldactone and a 6 at home. Patient's baseline creatinine is within normal limits at 0.8 and when he came in it was 1.5 now around 2.26. Patient received boluses of IV fluids and is on 1 33 mL of normal saline will cut it down to 75 mL because of his previous history of heart failure although his all his heart failure exacerbations are before his valve replacement surgery.presently appears to be euvolemic.patient does have acidosiswith some anion gap appears to have a combined metabolic acidosis lactic acid is 1.6. Liver enzymes are elevated AST and ALT but stable are bit better compared to yesterday. Gastroenterology until surgery was consulted may need cardiology consultation for clearance. Does have history of A. fib on Eliquis which is being held for anticipated ERCP followed by cystectomy. Patient is heart rate controlled at this time, sinus rhythm and sinus tachycardia yesterday. Review of Systems REVIEW OF SYSTEMS: CONSTITUTIONAL: No fever, no malaise, no fatigue. HEENT: No recent visual problems or hearing problems. Denied any sore throat. CARDIOVASCULAR: No chest pain, orthopnea, PND, no palpitations, no syncope. PULMONARY: No shortness of breath, no cough, no hemoptysis. GASTROINTESTINAL:as mentioned in HPI NEUROLOGICAL: No headaches, no weakness, no numbness. HEMATOLOGICAL: Denies any bleeding or petechiae. GENITOURINARY: Denies any burning micturition, frequency, or urgency. MUSCULOSKELETAL/RHEUMATOLOGICAL: Denies any joint pain, swelling, or any muscle pain. ENDOCRINE: Denies any polyuria or polydipsia. The rest of the 14-point review of systems is negative. Past Medical History Past Medical History: Atrial Fibrillation, Cancer, Heart Failure, Deep Vein Thrombosis (DVT), Hyperlipidemia, Hypertension, Osteoarthritis (OA), Pulmonary Embolus (PE), Thyroid Disorder, Vascular Disorder Additional Past Medical History / Comment(s): THYROID CANCER with surgery/radio active tablets, bilateral lower leg cellulitis 2015, varicose veins, past DVTs and PEs, short term memory problems, episodes of hypotension, hiatal hernia, g astritis. Insomnia. Depression. Atrial fibrillation. History of Any Multi-Drug Resistant Organisms: None Reported Past Surgical History: Cardiac Valve Replacement, Heart Catheterization, Joint Replacement Additional Past Surgical History / Comment(s): Thyroidectomy, total left knee replacement, JAYDE/CVN, 09/29/16 aortic valve replacement with bovine valve and mitral valve repair, mediastinal lymph node biopsy, sternal chest wound debridement/ wound vac/sternotomy and muscle straps, COLONOSCOPY, EGD, bilateral cataract removals and L eye was injured requirin surgery to remove blood. Past Anesthesia/Blood Transfusion Reactions: No Reported Reaction Additional Past Anesthesia/Blood Transfusion Reaction / Comment(s): Pt has received blood in past without reaction. Past Psychological History: Depression Smoking Status: Former smoker Past Alcohol Use History: Rare Past Drug Use History: None Reported - Past Family History Father Family Medical History: Coronary Artery Disease (CAD) Additional Family Medical History / Comment(s): Father at the age pf 76yrs from heart problems. Mother Family Medical History: Vascular Disorder Additional Family Medical History / Comment(s): Mother had varicosities. She lived to be 92 yrs old. Brother(s) Family Medical History: Cancer Additional Family Medical History / Comment(s): LIVER CA. BLOOD CLOT. Medications and Allergies Home Medications Medication Instructions Recorded Confirmed Type Spironolactone [Aldactone] 25 mg PO DAILY #7 tab 01/03/17 05/30/19 Rx Donepezil [Aricept] 5 mg PO BID 10/05/18 05/30/19 History Metoprolol Tartrate 25 mg PO DAILY 10/05/18 05/30/19 History Venlafaxine HCl ER [Effexor XR] 75 mg PO DAILY 10/05/18 05/30/19 History Furosemide [Lasix] 40 mg PO DAILY PRN 10/12/18 05/30/19 History Albuterol Inhaler [Ventolin Hfa 1 puff INHALATION Q6H PRN 05/30/19 05/30/19 History Inhaler] Apixaban [Eliquis] 5 mg PO BID 05/30/19 05/30/19 History Diltiazem HCl [Cartia Xt] 240 mg PO DAILY 05/30/19 05/30/19 History Levothyroxine Sodium [Synthroid] 137 mcg PO DAILY 05/30/19 05/30/19 History Tiotropium 18 Mcg/Puff [Spiriva] 2 puff INHALATION DAILY 05/30/19 05/30/19 History Allergies Allergy/AdvReac Type Severity Reaction Status Date / Time No Known Allergies Allergy Verified 05/30/19 10:44 Physical Exam Vitals: Vital Signs Temp Pulse Pulse Resp BP BP Pulse Ox 05/30/19 09:00 97.9 F 68 18 114/93 96 05/30/19 06:47 97.4 F L 72 18 101/57 95 05/30/19 05:20 97.4 F L 78 18 91/57 98 05/30/19 03:17 97.9 F 69 18 89/55 95 05/29/19 23:39 108 H 18 95/62 97 05/29/19 23:00 94/62 05/29/19 22:30 100/72 93 L 05/29/19 22:13 94 L 05/29/19 22:11 98.8 F 106 H 18 100/72 95 Intake and Output 05/29/19 05/30/19 05/30/19 22:59 06:59 14:59 Intake Total 780 Balance 780 Intake: Intake, IV Titration 780 Amount Sodium Chloride 0.9% 1, 780 000 ml @ 130 mls/hr IV . Q7H42M [facility] Rx#:[id number] Other: Voiding Method Urinal Weight 90.718 kg 90.718 kg PHYSICAL EXAMINATION: GENERAL: The patient is alert and oriented x3, not in any acute distress. obese HEENT: Pupils are round and equally reacting to light. EOMI. No scleral icterus. No conjunctival pallor. Normocephalic, atraumatic. No pharyngeal erythema. No thyromegaly. CARDIOVASCULAR: S1 and S2 present. No murmurs, rubs, or gallops. PULMONARY: Chest is clear to auscultation, no wheezing or crackles. patient has chest wall deformity because of his multiple chest surgeries post valve replacement which was complicated and was subsequently addressed with muscle graft. ABDOMEN: Soft, nontender, nondistended, normoactive bowel sounds. No palpable organomegaly. MUSCULOSKELETAL: No joint swelling or deformity. EXTREMITIES: No cyanosis, clubbing, or pedal edema. NEUROLOGICAL: Gross neurological examination did not reveal any focal deficits. SKIN: No rashes. Results CBC & Chem 7: 05/30/19 06:40 05/30/19 06:40 Labs: Abnormal Lab Results - Last 24 Hours (Table) 05/29/19 05/29/19 05/29/19 Range/Units 22:25 22:25 23:12 WBC 12.5 H (3.8-10.6) k/uL Hgb (13.0-17.5) gm/dL RDW 17.2 H (11.5-15.5) % Neutrophils # 12.1 H (1.3-7.7) k/uL Lymphocytes # 0.2 L (1.0-4.8) k/uL PT (9.0-12.0) sec INR (<1.2) Sodium 136 L (137-145) mmol/L Carbon Dioxide 20 L (22-30) mmol/L BUN 36 H (9-20) mg/dL Creatinine 1.75 H (0.66-1.25) mg/dL Glucose 103 H (74-99) mg/dL Calcium (8.4-10.2) mg/dL Total Bilirubin 10.1 H (0.2-1.3) mg/dL AST 205 H (17-59) U/L ALT 269 H (21-72) U/L Alkaline Phosphatase 362 H (38-126) U/L Albumin (3.5-5.0) g/dL Urine Protein Trace H (Negative) Urine Blood Trace H (Negative) Urine Bilirubin 2+ H (Negative) Urine Mucus Rare H (None) /hpf 05/30/19 05/30/19 05/30/19 Range/Units 06:40 06:40 06:40 WBC 17.5 H (3.8-10.6) k/uL Hgb 12.9 L (13.0-17.5) gm/dL RDW 17.2 H (11.5-15.5) % Neutrophils # 15.7 H (1.3-7.7) k/uL Lymphocytes # 0.6 L (1.0-4.8) k/uL PT 12.1 H (9.0-12.0) sec INR 1.2 H (<1.2) Sodium (137-145) mmol/L Carbon Dioxide 15 L (22-30) mmol/L BUN 38 H (9-20) mg/dL Creatinine 2.26 H (0.66-1.25) mg/dL Glucose 107 H (74-99) mg/dL Calcium 7.9 L (8.4-10.2) mg/dL Total Bilirubin 9.1 H (0.2-1.3) mg/dL AST 140 H (17-59) U/L ALT 219 H (21-72) U/L Alkaline Phosphatase 261 H (38-126) U/L Albumin 3.2 L (3.5-5.0) g/dL Urine Protein (Negative) Urine Blood (Negative) Urine Bilirubin (Negative) Urine Mucus (None) /hpf Thrombosis Risk Factor Assmnt - Choose All That Apply Any of the Below Risk Factors Present?: Yes Each Factor Represents 1 point: Obesity (BMI >25) Other Risk Factors: Yes Each Risk Factor Represents 3 Points: Age 75 years or older Other congenital or acquired thrombophilia - If yes, enter type in comment: No Thrombosis Risk Factor Assessment Total Risk Factor Score: 4 Thrombosis Risk Factor Assessment Level: Moderate Risk Assessment and Plan Plan: -cholelithiasis possibility of cholecystitis and ascending cholangitis and sepsis cannot be ruled out at this time patient may have choledocholithiasis for which patient may need ERCP followed by cholecystectomy. Patient will continue done IV antibiotics we'll cut down the fluids because of history of heart failure and close monitoring for heart failure exacerbation , repeat liver enzymes -congestive heart failure chronic diastolic dysfunction:Without any acute exac erbation -acute renal failure: Can be related to sepsisand there may be a competent of renal azotemia and can be secondary to diuretic therapy which she is being held at this time patient is on IV fluids. Patient is fairly euvolemic at this time actually hypovolemic patient will be continued on IV fluids and will cut down the IV fluids because of his previous history of heart failure -Atrial fibrillation patient presently rate controlled anticoagulation is on hold with anticipation of possible ERCP and cholecystectomythe patient is rate controlled in sinus rhythm at this time -median the past -Hyperlipidemia -hypertension -History of thyroid cancer status post radioactive iodine treatment and patient is presently in thyroid medications which will be continued. -Status post aortic valve replacement REPLACEMENT with bovine valve and mitral valve repair -depression -since we're holding Eliquis patient may need DVT prophylaxiswith subcutaneous heparin. A prophylaxis with Protonix
[2019-05-30] MEDS ORDERED: EMPTY BAG 1 BAG with HUMAN PROTHROMBIN COMPLX 2,172 UNIT IV ONE (12:00)
--- NOTE | 2019-05-30 12:28 | XR ---
EXAMINATION TYPE: XR chest 1V DATE OF EXAM: 05/30/2019 HISTORY: Shortness of breath. COMPARISON: None. TECHNIQUE: Single view of the chest is submitted. FINDINGS: Pulmonary venous congestion with cardiomegaly. Mild interstitial prominence again noted. Overall ther e is improved. The heart is stable. Hilar and mediastinal structures are within normal limits. Degenerative changes are seen of the dorsal spine. IMPRESSION: 1. Persistent but improving interstitial edema.
--- NOTE | 2019-05-30 13:06 | P.GSCN ---
<Patricia Hernandez A - Last Filed: 05/30/19 13:05> History of Present Illness Consult date: 05/30/19 Reason for Consult: acute cholecystitis Requesting physician: Bhavik Fried History of present illness: CHIEF COMPLAINT: acute cholecystitis HISTORY OF PRESENT ILLNESS: 74 year old male who presented to the emergency room with a chief complaint of nausea, vomiting, fevers, and weakness. General surgery was consulted for further evaluation. Patient examined this morning at the bedside. He denies abdominal pain. Denies nausea or vomiting since coming to the hospital. He is passing flatus. PAST MEDICAL HISTORY: See list. PAST SURGICAL HISTORY: See list. MEDICATIONS: See list. ALLERGIES: See list. SOCIAL HISTORY: No illicit drug use. REVIEW OF SYSTEMS: CONSTITUTIONAL: Reports fever prior to coming to hospital. Reports weakness. HEENT: Denies blurred vision, vision changes, or eye pain. Denies hemoptysis ENDOCRINE: Denies heat or cold intolerance. CARDIOVASCULAR: Denies chest pain or pressure. RESPIRATORY: No shortness of breath. GASTROINTESTINAL: See HPI for pertinent findings NEURO: Denies history of seizures. PSYCH: No depression or suicidal ideation HEMATOLOGIC: Denies bleeding disorders. LYMPHATIC: The patient denies any lumps and bumps around the neck. GENITOURINARY: Denies any blood in urine or increased urinary frequency. MUSCULOSKELETAL: Denies myalgias. Denies joint swelling. Denies decreased range of motion beyond patients baseline. SKIN: Denies pruitis. Denies rash. PHYSICAL EXAM: VITAL SIGNS: Reviewed. GENERAL: Well-developed in no acute distress. Jaundice. HEENT: Extraocular movements grossly intact. Moist buccal mucosa. Head is atraumatic, normocephalic. Hears conversational speech. No nasal drainag e. NECK: Supple without lymphadenopathy. CHEST: Non-labored respirations and equal bilateral excursions. CARDIOVASCULAR: Regular rate with regular rhythm. Palpable 2+ radial pulses. ABDOMEN: Soft. Nontender with palpation. Positive bowel sounds. MUSCULOSKELETAL: No clubbing or cyanosis. NEUROLOGIC: No focal or lateralizing signs. Cranial nerves II through XII grossly intact. PSYCH: Appropriate affect. Alert and oriented to person, place and time. SKIN: Well perfused. Good skin turgor. LABORATORY DATA: WBC on admission 12.5. Repeat 17.5 Total bilirubin 9.1. AST 140. ALT 219. Alkaline phosphatase 261. IMAGIN. Gallbladder ultrasound: Numerous gallstones. Gallbladder appears dilated and suggestive of acute cholecystitis. Common bile duct mildly dilated. Intrahepatic bile ducts upper limit of normal. ASSESSMENT: 1. Nausea and vomiting, resolved 2. Cholelithiasis, suspected cholangitis and cholecystitis, possible choledocholithiasis PLAN: Continue IV antibiotics. Monitor WBC GI consulted for possible ERCP Hold Eliquis. Heparin subcu for DVT prophylaxis Cholecystectomy when medically stable Nurse practitioner note has been reviewed by physician. Signing provider agrees with the documented findings, assessment, and plan of care. Past Medical History Past Medical History: Atrial Fibrillation, Cancer, Heart Failure, Deep Vein Thrombosis (DVT), Hyperlipidemia, Hypertension, Osteoarthritis (OA), Pulmonary Embolus (PE), Thyroid Disorder, Vascular Disorder Additional Past Medical History / Comment(s): THYROID CANCER with surgery/radio active tablets, bilateral lower leg cellulitis 2015, varicose veins, past DVTs and PEs, short term memory problems, episodes of hypotension, hiatal hernia, gastritis. Insomnia. Depression. Atrial fibrillation. History of Any Multi-Drug Resistant Organisms: None Reported Past Surgical History: Cardiac Valve Replacement, Heart Catheterization, Joint Replacement Additional Past Surgical History / Comment(s): Thyroidectomy, total left knee replacement, JAYDE/CVN, 09/29/16 aortic valve replacement with bovine valve and mitral valve repair, mediastinal lymph node biopsy, sternal chest wound debridement/ wound vac/sternotomy and muscle straps, COLONOSCOPY, EGD, bilateral cataract removals and L eye was injured requirin surgery to remove blood. Past Anesthesia/Blood Transfusion Reactions: No Reported Reaction Additional Past Anesthesia/Blood Transfusion Reaction / Comm: Pt has received blood in past without reaction. Past Psychological History: Depression Smoking Status: Former smoker Past Alcohol Use History: Rare Past Drug Use History: None Reported - Past Family History Father Family Medical History: Coronary Artery Disease (CAD) Additional Family Medical History / Comment(s): Father at the age pf 76yrs from heart problems. Mother Family Medical History: Vascular Disorder Additional Family Medical History / Comment(s): Mother had varicosities. She lived to be 92 yrs old. Brother(s) Family Medical History: Cancer Additional Family Medical History / Comment(s): LIVER CA. BLOOD CLOT. Medications and Allergies Home Medications Medication Instructions Recorded Confirmed Type Spironolactone [Aldactone] 25 mg PO DAILY #7 tab 01/03/17 05/30/19 Rx Donepezil [Aricept] 5 mg PO BID 10/05/18 05/30/19 History Metoprolol Tartrate 25 mg PO DAILY 10/05/18 05/30/19 History Venlafaxine HCl ER [Effexor XR] 75 mg PO DAILY 10/05/18 05/30/19 History Furosemide [Lasix] 40 mg PO DAILY PRN 10/12/18 05/30/19 History Albuterol Inhaler [Ventolin Hfa 1 puff INHALATION Q6H PRN 05/30/19 05/30/19 History Inhaler] Apixaban [Eliquis] 5 mg PO BID 05/30/19 05/30/19 History Diltiazem HCl [Cartia Xt] 240 mg PO DAILY 05/30/19 05/30/19 History Levothyroxine Sodium [Synthroid] 137 mcg PO DAILY 05/30/19 05/30/19 History Tiotropium 18 Mcg/Puff [Spiriva] 2 puff INHALATION DAILY 05/30/19 05/30/19 History Allergies Allergy/AdvReac Type Severity Reaction Status Date / Time No Known Allergies Allergy Verified 05/30/19 10:44 Surgical - Exam Vital Signs Temp Pulse Resp BP Pulse Ox 98.8 F 106 H 18 100/72 95 05/29/19 22:11 05/29/19 22:11 05/29/19 22:11 05/29/19 22:11 05/29/19 22:11 Results - Labs 05/30/19 06:40 05/30/19 06:40 Abnormal Lab Results - Last 24 Hours (Table) 05/29/19 05/29/19 05/29/19 Range/Units 22:25 22:25 23:12 WBC 12.5 H (3.8-10.6) k/uL Hgb (13.0-17.5) gm/dL RDW 17.2 H (11.5-15.5) % Neutrophils # 12.1 H (1.3-7.7) k/uL Lymphocytes # 0.2 L (1.0-4.8) k/uL PT (9.0-12.0) sec INR (<1.2) Sodium 136 L (137-145) mmol/L Carbon Dioxide 20 L (22-30) mmol/L BUN 36 H (9-20) mg/dL Creatinine 1.75 H (0.66-1.25) mg/dL Glucose 103 H (74-99) mg/dL Calcium (8.4-10.2) mg/dL Total Bilirubin 10.1 H (0.2-1.3) mg/dL AST 205 H (17-59) U/L ALT 269 H (21-72) U/L Alkaline Phosphatase 362 H (38-126) U/L Albumin (3.5-5.0) g/dL Urine Protein Trace H (Negative) Urine Blood Trace H (Negative) Urine Bilirubin 2+ H (Negative) Urine Mucus Rare H (None) /hpf 05/30/19 05/30/19 05/30/19 Range/Units 06:40 06:40 06:40 WBC 17.5 H (3.8-10.6) k/uL Hgb 12.9 L (13.0-17.5) gm/dL RDW 17.2 H (11.5-15.5) % Neutrophils # 15.7 H (1.3-7.7) k/uL Lymphocytes # 0.6 L (1.0-4.8) k/uL PT 12.1 H (9.0-12.0) sec INR 1.2 H (<1.2) Sodium (137-145) mmol/L Carbon Dioxide 15 L (22-30) mmol/L BUN 38 H (9-20) mg/dL Creatinine 2.26 H (0.66-1.25) mg/dL Glucose 107 H (74-99) mg/dL Calcium 7.9 L (8.4-10.2) mg/dL Total Bilirubin 9.1 H (0.2-1.3) mg/dL AST 140 H (17-59) U/L ALT 219 H (21-72) U/L Alkaline Phosphatase 261 H (38-126) U/L Albumin 3.2 L (3.5-5.0) g/dL Urine Protein (Negative) Urine Blood (Negative) Urine Bilirubin (Negative) Urine Mucus (None) /hpf Microbiology - Last 24 Hours (Table) 05/29/19 23:04 Blood Culture - Final Blood Diabetes panel 05/29/19 05/30/19 Range/Units 22:25 06:40 Sodium 136 L 138 (137-145) mmol/L Potassium 3.9 4.1 (3.5-5.1) mmol/L Chloride 101 107 (98-107) mmol/L Carbon Dioxide 20 L 15 L (22-30) mmol/L BUN 36 H 38 H (9-20) mg/dL Creatinine 1.75 H 2.26 H (0.66-1.25) mg/dL Glucose 103 H 107 H (74-99) mg/dL Calcium 8.7 7.9 L (8.4-10.2) mg/dL AST 205 H 140 H (17-59) U/L ALT 269 H 219 H (21-72) U/L Alkaline Phosphatase 362 H 261 H (38-126) U/L Total Protein 7.8 6.6 (6.3-8.2) g/dL Albumin 4.1 3.2 L (3.5-5.0) g/dL Calcium panel 05/29/19 05/30/19 Range/Units 22:25 06:40 Calcium 8.7 7.9 L (8.4-10.2) mg/dL Albumin 4.1 3.2 L (3.5-5.0) g/dL Pituitary panel 05/29/19 05/30/19 Range/Units 22:25 06:40 Sodium 136 L 138 (137-145) mmol/L Potassium 3.9 4.1 (3.5-5.1) mmol/L Chloride 101 107 (98-107) mmol/L Carbon Dioxide 20 L 15 L (22-30) mmol/L BUN 36 H 38 H (9-20) mg/dL Creatinine 1.75 H 2.26 H (0.66-1.25) mg/dL Glucose 103 H 107 H (74-99) mg/dL Calcium 8.7 7.9 L (8.4-10.2) mg/dL Adrenal panel 05/29/19 05/30/19 Range/Units 22:25 06:40 Sodium 136 L 138 (137-145) mmol/L Potassium 3.9 4.1 (3.5-5.1) mmol/L Chloride 101 107 (98-107) mmol/L Carbon Dioxide 20 L 15 L (22-30) mmol/L BUN 36 H 38 H (9-20) mg/dL Creatinine 1.75 H 2.26 H (0.66-1.25) mg/dL Glucose 103 H 107 H (74-99) mg/dL Calcium 8.7 7.9 L (8.4-10.2) mg/dL Total Bilirubin 10.1 H 9.1 H (0.2-1.3) mg/dL AST 205 H 140 H (17-59) U/L ALT 269 H 219 H (21-72) U/L Alkaline Phosphatase 362 H 261 H (38-126) U/L Total Protein 7.8 6.6 (6.3-8.2) g/dL Albumin 4.1 3.2 L (3.5-5.0) g/dL <Ann Elliott - Last Filed: 05/30/19 19:09> History of Present Illness History of present illness: Family at bedside including , daughter and son for additional history. He has been ill since Thanksgiving after eating moderate amount of gravy to his meal. Plus, he ate a whole container of ice cream prior to admission yesterday. His reports that he had rigors and fevers with delirium prompting call for the EMS. His daughter reports he was more jaundiced this afternoon. He has history of afib now controlled. He has completed and ECHO with ejection fraction over 50% with hypokinesis. He has known history of gallstones for over 10 years. He denies any pain. Family notes that he is less jaundiced. No fevers. His last dose of Eliquis was yesterday, Tuesday morning. He has renal insufficiency at baseline. I spoke with his family that any surgical intervention with him is high risk especially with 24 hrs last dose of Eliquis with renal insufficiency. MRCP unable to obtain secondary to his size. Recommend hold surgical intervention as a result of his Eliquis at least for 48 to 72 hrs with his renal insufficiency. Recommend repeat CHEM and CBC with antibiotics to prevent risk for ascending cholangitis. Surgical - Exam Vital Signs Temp Pulse Resp BP Pulse Ox 98.8 F 106 H 18 100/72 95 05/29/19 22:11 05/29/19 22:11 05/29/19 22:11 05/29/19 22:11 05/29/19 22:11 Results - Labs 05/30/19 06:40 05/30/19 06:40 Abnormal Lab Results - Last 24 Hours (Table) 05/29/19 05/29/19 05/29/19 Range/Units 22:25 22:25 23:12 WBC 12.5 H (3.8-10.6) k/uL Hgb (13.0-17.5) gm/dL RDW 17.2 H (11.5-15.5) % Neutrophils # 12.1 H (1.3-7.7) k/uL Lymphocytes # 0.2 L (1.0-4.8) k/uL PT (9.0-12.0) sec INR (<1.2) Sodium 136 L (137-145) mmol/L Carbon Dioxide 20 L (22-30) mmol/L BUN 36 H (9-20) mg/dL Creatinine 1.75 H (0.66-1.25) mg/dL Glucose 103 H (74-99) mg/dL Calcium (8.4-10.2) mg/dL Total Bilirubin 10.1 H (0.2-1.3) mg/dL AST 205 H (17-59) U/L ALT 269 H (21-72) U/L Alkaline Phosphatase 362 H (38-126) U/L Albumin (3.5-5.0) g/dL Urine Protein Trace H (Negative) Urine Blood Trace H (Negative) Urine Bilirubin 2+ H (Negative) Urine WBC (0-5) /hpf Amorphous Sediment (None) /hpf Urine Bacteria (None) /hpf Urine Mucus Rare H (None) /hpf 05/30/19 05/30/19 05/30/19 Range/Units 06:40 06:40 06:40 WBC 17.5 H (3.8-10.6) k/uL Hgb 12.9 L (13.0-17.5) gm/dL RDW 17.2 H (11.5-15.5) % Neutrophils # 15.7 H (1.3-7.7) k/uL Lymphocytes # 0.6 L (1.0-4.8) k/uL PT 12.1 H (9.0-12.0) sec INR 1.2 H (<1.2) Sodium (137-145) mmol/L Carbon Dioxide 15 L (22-30) mmol/L BUN 38 H (9-20) mg/dL Creatinine 2.26 H (0.66-1.25) mg/dL Glucose 107 H (74-99) mg/dL Calcium 7.9 L (8.4-10.2) mg/dL Total Bilirubin 9.1 H (0.2-1.3) mg/dL AST 140 H (17-59) U/L ALT 219 H (21-72) U/L Alkaline Phosphatase 261 H (38-126) U/L Albumin 3.2 L (3.5-5.0) g/dL Urine Protein (Negative) Urine Blood (Negative) Urine Bilirubin (Negative) Urine WBC (0-5) /hpf Amorphous Sediment (None) /hpf Urine Bacteria (None) /hpf Urine Mucus (None) /hpf 05/30/19 Range/Units 13:45 WBC (3.8-10.6) k/uL Hgb (13.0-17.5) gm/dL RDW (11.5-15.5) % Neutrophils # (1.3-7.7) k/uL Lymphocytes # (1.0-4.8) k/uL PT (9.0-12.0) sec INR (<1.2) Sodium (137-145) mmol/L Carbon Dioxide (22-30) mmol/L BUN (9-20) mg/dL Creatinine (0.66-1.25) mg/dL Glucose (74-99) mg/dL Calcium (8.4-10.2) mg/dL Total Bilirubin (0.2-1.3) mg/dL AST (17-59) U/L ALT (21-72) U/L Alkaline Phosphatase (38-126) U/L Albumin (3.5-5.0) g/dL Urine Protein Trace H (Negative) Urine Blood Small H (Negative) Urine Bilirubin 2+ H (Negative) Urine WBC 16 H (0-5) /hpf Amorphous Sediment Rare H (None) /hpf Urine Bacteria Rare H (None) /hpf Urine Mucus (None) /hpf Microbiology - Last 24 Hours (Table) 05/29/19 23:04 Blood Culture Gram Stain - Preliminary Blood Blood Culture - Preliminary Escherichia coli 05/29/19 23:04 Blood Culture - Final Blood Diabetes panel 05/29/19 05/30/19 Range/Units 22:25 06:40 Sodium 136 L 138 (137-145) mmol/L Potassium 3.9 4.1 (3.5-5.1) mmol/L Chloride 101 107 (98-107) mmol/L Carbon Dioxide 20 L 15 L (22-30) mmol/L BUN 36 H 38 H (9-20) mg/dL Creatinine 1.75 H 2.26 H (0.66-1.25) mg/dL Glucose 103 H 107 H (74-99) mg/dL Calcium 8.7 7.9 L (8.4-10.2) mg/dL AST 205 H 140 H (17-59) U/L ALT 269 H 219 H (21-72) U/L Alkaline Phosphatase 362 H 261 H (38-126) U/L Total Protein 7.8 6.6 (6.3-8.2) g/dL Albumin 4.1 3.2 L (3.5-5.0) g/dL Calcium panel 05/29/19 05/30/19 Range/Units 22:25 06:40 Calcium 8.7 7.9 L (8.4-10.2) mg/dL Albumin 4.1 3.2 L (3.5-5.0) g/dL Pituitary panel 05/29/19 05/30/19 Range/Units 22:25 06:40 Sodium 136 L 138 (137-145) mmol/L Potassium 3.9 4.1 (3.5-5.1) mmol/L Chloride 101 107 (98-107) mmol/L Carbon Dioxide 20 L 15 L (22-30) mmol/L BUN 36 H 38 H (9-20) mg/dL Creatinine 1.75 H 2.26 H (0.66-1.25) mg/dL Glucose 103 H 107 H (74-99) mg/dL Calcium 8.7 7.9 L (8.4-10.2) mg/dL Adrenal panel 05/29/19 05/30/19 Range/Units 22:25 06:40 Sodium 136 L 138 (137-145) mmol/L Potassium 3.9 4.1 (3.5-5.1) mmol/L Chloride 101 107 (98-107) mmol/L Carbon Dioxide 20 L 15 L (22-30) mmol/L BUN 36 H 38 H (9-20) mg/dL Creatinine 1.75 H 2.26 H (0.66-1.25) mg/dL Glucose 103 H 107 H (74-99) mg/dL Calcium 8.7 7.9 L (8.4-10.2) mg/dL Total Bilirubin 10.1 H 9.1 H (0.2-1.3) mg/dL AST 205 H 140 H (17-59) U/L ALT 269 H 219 H (21-72) U/L Alkaline Phosphatase 362 H 261 H (38-126) U/L Total Protein 7.8 6.6 (6.3-8.2) g/dL Albumin 4.1 3.2 L (3.5-5.0) g/dL
--- NOTE | 2019-05-30 14:00 | P.PN ---
Subjective Progress Note Date: 05/30/19 Briefly this is a patient that presented with intractable nausea and vomiting and was admitted for likely septic shock was noted to be hypotensive in the ER was given a bolus of IV fluids. Review of his labs indicates organ dysfunction with acute kidney injury likely prerenal ATN due to septic shock. His creatinine climbed from 1.75-2.26, lipase of septic shock was secondary to acute cholecystitis/cholangitis and he was started on empiric IV antibiotics with IV Zosyn, the patient has been afebrile. We'll re-bolused him 2.5 L in order stat lactic acid. Gen. surgery was consulted for evaluate for laparoscopic cholecystectomy. Nephrology is also been consulted for acute kidney injury Objective - Vital Signs Vital signs: Vital Signs Temp 97.4 F L 05/30/19 06:47 Pulse 72 05/30/19 06:47 Resp 18 05/30/19 06:47 BP 101/57 05/30/19 06:47 Pulse Ox 95 05/30/19 06:47 Intake & Output 05/29/19 05/30/19 05/30/19 18:59 06:59 18:59 Intake Total 780 Balance 780 Weight 90.718 kg Intake: Intake, IV Titration 780 Amount Sodium Chloride 0.9% 1, 780 000 ml @ 130 mls/hr IV . Q7H42M [facility] Rx#:[id number] Other: Voiding Method Urinal - Exam Constitutional: No acute distress, conversant, pleasant Eyes: Anicteric sclerae, moist conjunctiva, no lid-lag, PERRLA ENMT: NC/AT,Oropharynx clear, no erythema, exudates Neck:Supple, FROM, no masses, or JVD, No carotid bruits; No thyromegaly Lungs: Clear to auscultation, Clear to percussion, Normal respiratory effort, no accessory muscle use Cardiovascular: Heart regular in rate and rhythm, No murmurs, gallops, or rubs no peripheral edema Abdominal: Soft Nontender, nom distended, no guarding, no rebound or rigidity, Normoactive bowel sounds No hepatomegaly, No splenomegaly, No palpable mass No abdominal wall hernia noted Skin: Normal temperature, tone, texture, turgor, No induration No subcutaneous nodules, No rash, lesions, No ulcers Extremities:No digital cyanosis No clubbing, Pedal pulses intact and symmetrical Radial pulses intact and symmetrical Normal gait and station, No calf tenderness Psychiatric: Alert and oriented to person, place and time, Appropriate affect Intact judgement Neuro: Muscles Strength 5/5 in all 4 extremities, Sensation to light touch grossly present throughout, Cranial nerves II-XII grossly intact. No focal sens ory deficits - Labs CBC & Chem 7: 05/30/19 06:40 05/30/19 06:40 Labs: Abnormal Lab Results - Last 24 Hours (Table) 05/29/19 05/29/19 05/29/19 Range/Units 22:25 22:25 23:12 WBC 12.5 H (3.8-10.6) k/uL Hgb (13.0-17.5) gm/dL RDW 17.2 H (11.5-15.5) % Neutrophils # 12.1 H (1.3-7.7) k/uL Lymphocytes # 0.2 L (1.0-4.8) k/uL PT (9.0-12.0) sec INR (<1.2) Sodium 136 L (137-145) mmol/L Carbon Dioxide 20 L (22-30) mmol/L BUN 36 H (9-20) mg/dL Creatinine 1.75 H (0.66-1.25) mg/dL Glucose 103 H (74-99) mg/dL Calcium (8.4-10.2) mg/dL Total Bilirubin 10.1 H (0.2-1.3) mg/dL AST 205 H (17-59) U/L ALT 269 H (21-72) U/L Alkaline Phosphatase 362 H (38-126) U/L Albumin (3.5-5.0) g/dL Urine Protein Trace H (Negative) Urine Blood Trace H (Negative) Urine Bilirubin 2+ H (Negative) Urine Mucus Rare H (None) /hpf 05/30/19 05/30/19 05/30/19 Range/Units 06:40 06:40 06:40 WBC 17.5 H (3.8-10.6) k/uL Hgb 12.9 L (13.0-17.5) gm/dL RDW 17.2 H (11.5-15.5) % Neutrophils # 15.7 H (1.3-7.7) k/uL Lymphocytes # 0.6 L (1.0-4.8) k/uL PT 12.1 H (9.0-12.0) sec INR 1.2 H (<1.2) Sodium (137-145) mmol/L Carbon Dioxide 15 L (22-30) mmol/L BUN 38 H (9-20) mg/dL Creatinine 2.26 H (0.66-1.25) mg/dL Glucose 107 H (74-99) mg/dL Calcium 7.9 L (8.4-10.2) mg/dL Total Bilirubin 9.1 H (0.2-1.3) mg/dL AST 140 H (17-59) U/L ALT 219 H (21-72) U/L Alkaline Phosphatase 261 H (38-126) U/L Albumin 3.2 L (3.5-5.0) g/dL Urine Protein (Negative) Urine Blood (Negative) Urine Bilirubin (Negative) Urine Mucus (None) /hpf Assessment and Plan Assessment: Septic shock * Secondary to acute cholecystitis/cholangitis, blood pressure borderline today We'll rebolus 2.5 L and see if his pressure response * Continue empiric IV antibiotics with Zosyn * Blood cultures pending we'll order urinalysis as well Acute cholecystitis/cholangitis * Gen. surgeryDrSara Stahl consulted planning to take patient for lap cholecystectomy * Pronounced transaminitis and hyperbilirubinemia now improving Acute kidney injury secondary to ATN * Secondary to septic shock prerenal due to ATN * Continue to follow creatinine continue maintenance fluids after bolus * Nephrology consult ordered Essential hypertension * We'll discontinue all hypertensive medications for now Paroxysmal A. fib on DOAC Eliquis * Patient reported taking his last dose initially yesterday morning * And discuss case with general surgery wanting reversal with Kcentra (ordered per pharmacy protocol History of CAD status post CABG * Patient without chest pain asymptomatic History of CHF currently compensated * Asymptomatic likely volume depleted actually * echocardiogram ordered as patient does have a murmur on physical exam History of thyroid cancer and hypothyroidism Disposition * Continue to monitor closely. Septic shock we'll need laparoscopic cholecystectomy general surgery to see later today * anticipated discharge 2-3 days
[2019-05-30 14:08] LABS: Amorphous Sediment,Urine Rare /hpf; Appearance,Urine Cloudy (Clear); Bacteria,Urine Rare /hpf; Bilirubin,Urine 2+ (Negative); Blood,Urine Small (Negative); Color,Urine Dark Yellow; Glucose,Urine (UA) Negative (Negative); Ketones,Urine Negative (Negative); Leukocyte Esterase,Urine Negative (Negative); Nitrite,Urine Negative (Negative); Protein,Urine Trace (Negative); RBC,Urine 3 /hpf (0-5); Specific Gravity,Urine 1.021 (1.001-1.035)
[2019-05-30] MEDS ORDERED: SODIUM CHLORIDE 0.9% 1,000 ML IV ONE (14:56)
[2019-05-30] MEDS: DEXTROSE 5% IN WATER 1,000 ML with SODIUM BICARB (1 MEQ/ML) 150 ML IV SCH (17:07)
--- NOTE | 2019-05-30 22:36 | CONS ---
CONSULTATION REASON FOR CONSULT: Renal failure. HISTORY OF PRESENT ILLNESS: The patient is a 74-year-old male who was admitted to the hospital with complaints of nausea, vomiting, not feeling well. The patient's blood pressure has been low with systolic as low as 88 mmHg. He was on diuretics at home prior to admission which are currently on hold. The patient is maintained on IV fluids. He did have a couple of episodes of loose bowel movements and nausea and vomiting as well prior to admission. The patient did get a dose of Motrin yesterday, 800 mg. At this time, patient states he is voiding in a urinal. Serum creatinine was 2.26 mg/dL today. Yesterday we had a creatinine of 1.75 and review of old labs shows a previous creatinine of 1.5 on 01/10/2019. PAST MEDICAL HISTORY: Chronic atrial fibrillation, CHF, DVT, hyperlipidemia, hypertension, osteoarthritis, history of PE, hypothyroidism, history of thyroid cancer with surgery and radioactive tablets, history of bilateral lower extremity cellulitis and DVTs, depression, insomnia. PAST SURGICAL HISTORY: Cardiac catheterization, thyroidectomy, total left knee arthroplasty, JAYDE, aortic valve replacement with bovine valve and mitral valve repair, sternal chest wound debridement, cataract surgeries, EGD, colonoscopies. SOCIAL HISTORY: Patient is a former smoker. No history of drug abuse or alcohol abuse. CURRENT MEDICATIONS: Prior to admission include: Aldactone, Aricept, metoprolol, Effexor, Lasix, Eliquis, Cartia, Synthroid, Spiriva. ALLERGIES: None. EXAMINATION: Patient is currently comfortable. He is awake, not in any acute distress. Blood pressure this morning was 90/57, heart rate 73 per minute. Patient is afebrile. Examination of the heart S1, S2. Examination of lungs decreased breath sounds at the bases. Abdomen is soft, nontender, obese. Examination of lower extremities shows chronic skin changes. No significant edema is noted. [employer] exam grossly intact. LAB: Show sodium of 138, potassium 4.1, chloride 107, CO2 is 15, BUN 38. Serum creatinine 2.26, calcium is 7.9, albumin 3.2, hemoglobin 12.9 g/dL. ASSESSMENT: 1. Acute kidney injury secondary to hypotension, hypoperfusion. The patient also received a dose of Motrin 800 mg yesterday, which we will add to his acute kidney injury in the setting of hypotension. It is appropriately discontinued at this time. I will continue with IV fluids and repeat labs in a.m. 2. Atrial fibrillation with controlled ventricular response. 3. Cholelithiasis status post evaluation by surgery. No plans for surgery at this time. 4. Chronic kidney disease with previous creatinine at 1.5 and 1.1 mg/dL in December and September of 2018. Etiology is likely nephrosclerosis. 5. Hypertension. Blood pressure is on the lower side. Decrease Cardizem. 6. Metabolic acidosis and anion gap secondary to renal failure, start IV bicarb. 7. History of deep vein thrombosis in the lower extremities. PLAN: Start IV bicarb. Maintain IV fluids. Encourage increased oral intake. Repeat labs in a.m. Avoid nephrotoxic agents including nonsteroidal anti-inflammatory agents. Decrease dose of Cardizem given the hypotension. Thank you for this consultation. We will continue to follow the patient with you during his hospitalization. MMODL / IJN: [id number] /
--- NOTE | 2019-05-30 23:15 | CONS ---
CONSULTATION DATE OF DICTATION: 05/30/2019 REASON FOR CONSULTATION: Elevated LFTs and jaundice. HISTORY OF PRESENT ILLNESS: The patient is a 74-year-old pleasant white male who was admitted to the hospital because of nausea and vomiting for the last 2-3 days' duration. He stated that he had a Thanksgiving dinner and a day later started having some nausea, vomiting. These symptoms continued to progress through the weekend and yesterday he came into the emergency room for further evaluation. He had some chills but no fever. He never had these symptoms in the past. In the emergency room he was noted to be somewhat hypertensive and had elevated LFTs as well as jaundice. Bilirubin was 7.1 with ALT and AST in the 200 range. He did have a CT of the abdomen and pelvis done in the emergency room that showed normal-appearing liver, numerous calcified gallstones, but no evidence of biliary ductal dilation. He also had an ultrasound of the gallbladder done that showed the same. He is feeling much better. Nausea and vomiting have completely resolved. PAST MEDICAL HISTORY: Past medical history is significant for: 1. Coronary artery disease, status post CABG. 2. History of mitral valve repair. 3. DVT in the past. 4. Congestive heart failure. 5. Atrial fibrillation, on Eliquis. 6. Hypertension. 7. Hyperlipidemia. 8. Degenerative joint disease. 9. Hypothyroidism. 10.History of thyroid cancer, for which he underwent surgery and radioactive treatment. PAST SURGICAL HISTORY: 1. Mitral valve replacement. 2. Thyroidectomy. 3. Left total knee replacement. 4. Sternal wound debridement followed by skin graft. 5. History of EGD and colonoscopy in the past. 6. Bilateral cataract surgery. MEDICATIONS: Medications at home include: 1. Aldactone. 2. Aspirin. 3. Lipitor. 4. Aricept. 5. Synthroid. 6. Ventolin. 7. Lasix. 8. Keflex. 9. Eliquis. ALLERGIES: NONE. SOCIAL HISTORY: No smoking or alcohol use. FAMILY HISTORY: Unremarkable. REVIEW OF SYSTEMS: CARDIOPULMONARY: No chest pain or shortness of breath. GENITOURINARY: No dysuria or hematuria. MUSCULOSKELETAL: Unremarkable. SKIN: Unremarkable. ENDOCRINE: Unremarkable. PSYCHIATRIC: Unremarkable. NEUROLOGY: Unremarkable. ENT/VISION: Unremarkable. CONSTITUTIONAL: No recent weight loss. No fever, chills, night sweats. PHYSICAL EXAMINATION: He appears comfortable. No apparent distress. Vital signs are stable. Blood pressure 197/59, pulse rate 82, temperature 97.5. HEENT examination unremarkable. Conjunctivae pink. Sclerae anicteric. Oral cavity no lesions. NECK: No JVD or lymph node enlargement. CHEST: Clear to auscultation. HEART: Regular rate and rhythm. ABDOMEN: Soft. It was non-tender, non-distended. Bowel sounds are positive. No organomegaly. EXTREMITIES: No pedal edema. SKIN: No rashes. NEUROLOGIC: Alert and oriented x3. No focal deficits. LABS: Labs done at the time of admission to the hospital showed WBC 12.5, hemoglobin 14.7. Today WBC is 17.5. INR is 1.2. T-bilirubin was 10.1, AST 205, ALT 269, alkaline phosphatase 369. Today T-bilirubin is 9.1, AST is 140, ALT 219, and alkaline phosphatase is 261. BUN 38, creatinine 2.26. IMPRESSION: 1. This is a patient who presented to the hospital with acute onset of nausea and vomiting for the last 3-4 days' duration with no associated abdominal pain, fever, chills or night sweats. He was noted to have elevated LFTs with bilirubin of 10.1 and mild elevation of serum transaminases. Ultrasound and CT scan showed evidence of gallstones but no evidence of biliary ductal dilation. No pancreatic mass seen. At this time it is unclear if we are dealing with biliary obstruction related to CBD stones versus hepatocellular injury. The patient was started on broad-spectrum antibiotics and clinically doing well. 2. History of atrial fibrillation, on Eliquis; currently on hold. 3. History of mitral valve repair and aortic valve replacement. 4. History of hypertension and hyperlipidemia. RECOMMENDATIONS: 1. Continue to hold Eliquis. 2. Will schedule the patient for MRCP today to evaluate this further, and based on MRCP I will decide if he will benefit from endoscopic intervention. In the meantime, continue with broad-spectrum antibiotics. Start him on a clear liquid diet today. Repeat labs in the morning. We will follow the patient closely during his hospital stay. Thank you for this consultation. MMODL / IJN: [id number] /
[2019-05-31] MEDS: HEPARIN SODIUM,PORCINE 5,000 UNIT/ML 1 ML VIAL SQ SCH ×3 (00:50→17:12)
[2019-05-31] MEDS ORDERED: LEVOTHYROXINE 137 MCG TAB PO SCH (06:00)
[2019-05-31] MEDS: LEVOTHYROXINE 137 MCG TAB PO SCH (06:56)
[2019-05-31 07:19] LABS: Anisocytosis Slight; Basophils % (A) 0 %; Eosinophils # (A) 0.2 k/uL (0-0.7); Eosinophils % (A) 2 %; HCT 38.5 % (39.0-53.0); HGB 12.3 gm/dL (13.0-17.5); Hypochromasia Slight; Lymphocytes # (A) 0.6 k/uL (1.0-4.8); Lymphocytes % (A) 7 %; MCH 28.2 pg (25.0-35.0); Mean Platelet Volume 7.7; Monocytes # (A) 0.5 k/uL (0-1.0); Monocytes % (A) 6 %; Neutrophils # (A) 7.7 k/uL (1.3-7.7); Neutrophils % (A) 83 %; Platelet Count 176 k/uL (150-450); RBC 4.37 m/uL (4.30-5.90); RDW 17.5 % (11.5-15.5); WBC 9.3 k/uL (3.8-10.6)
[2019-05-31 07:33] LABS: Albumin 3.2 g/dL (3.5-5.0); Calcium 7.6 mg/dL (8.4-10.2); Potassium 3.8 mmol/L (3.5-5.1); Total Bilirubin 5.5 mg/dL (0.2-1.3); Total Protein 6.4 g/dL (6.3-8.2)
[2019-05-31] MEDS: IPRATROPIUM 0.5 MG/2.5 ML NEBU INHALATION SCH ×4 (07:42→19:57)
[2019-05-31] MEDS: VENLAFAXINE HCL ER 75 MG CAP PO SCH (08:53)
[2019-05-31] MEDS: PANTOPRAZOLE 40 MG/10 ML VIAL IVP SCH (08:53)
[2019-05-31] MEDS: DILTIAZEM CD 120 MG CAP.ER.24H PO SCH (08:53)
[2019-05-31] MEDS ORDERED: DILTIAZEM CD 240 MG CAP.ER.24H PO SCH (09:00)
[2019-05-31] MEDS: SODIUM CHLORIDE 0.9% 1,000 ML IV SCH (10:43)
[2019-05-31] MEDS: PIPERACILLIN-TAZOBACTAM 3.375 GM in SODIUM CHLORIDE 0.9% 100 ML IVPB SCH ×2 (10:44→20:20)
[2019-05-31] MEDS: DEXTROSE 5% IN WATER 1,000 ML with SODIUM BICARB (1 MEQ/ML) 150 ML IV SCH (10:51)
--- NOTE | 2019-05-31 10:53 | P.PN ---
Subjective Patient is seen in follow-up for acute kidney injury. Renal function is better. Creatinine 1.8 today. No vomiting or diarrhea today. Scheduled for ERCP today. Urine output has been good. Vital signs are stable. General: The patient appeared well nourished and normally developed. HEENT: Head exam is unremarkable. Neck is without jugular venous distension. LUNGS: Lungs are clear to auscultation and percussion. Breath sounds decreased. HEART: Rate and Rhythm are regular. First and second heart sounds normal. No murmurs, rubs or gallops. ABDOMEN: Abdominal exam reveals normal bowel sounds. Non-tender and non- distended. No evidence of peritonitis. EXTREMITITES: No clubbing, cyanosis, or edema. Objective - Vital Signs Vital signs: Vital Signs Temp 97.5 F L 05/31/19 08:00 Pulse 75 05/31/19 08:00 Resp 20 05/31/19 08:00 BP 107/72 05/31/19 08:00 Pulse Ox 96 05/31/19 08:00 Intake & Output 05/30/19 05/31/19 05/31/19 18:59 06:59 18:59 Intake Total 2650 Output Total 240 700 Balance 2410 -700 Weight 97 kg Intake: Intake, IV Titration 2650 Amount Sodium Chloride 0.9% 1, 150 000 ml @ 100 mls/hr IV . Q10H [facility] Rx#:[id number] Sodium Chloride 0.9% 1, 2500 000 ml @ 999 mls/hr IV . Q1H1M [facility] Rx#:[id number] Output: Urine 240 700 Other: Voiding Method Urinal - Labs CBC & Chem 7: 05/31/19 06:30 05/31/19 06:30 Labs: Abnormal Lab Results - Last 24 Hours (Table) 05/30/19 05/31/19 05/31/19 Range/Units 13:45 06:30 06:30 Hgb 12.3 L (13.0-17.5) gm/dL Hct 38.5 L (39.0-53.0) % RDW 17.5 H (11.5-15.5) % Lymphocytes # 0.6 L (1.0-4.8) k/uL BUN 36 H (9-20) mg/dL Creatinine 1.81 H (0.66-1.25) mg/dL Calcium 7.6 L (8.4-10.2) mg/dL Total Bilirubin 5.5 H (0.2-1.3) mg/dL AST 79 H (17-59) U/L ALT 164 H (21-72) U/L Alkaline Phosphatase 230 H (38-126) U/L Albumin 3.2 L (3.5-5.0) g/dL Urine Protein Trace H (Negative) Urine Blood Small H (Negative) Urine Bilirubin 2+ H (Negative) Urine WBC 16 H (0-5) /hpf Amorphous Sediment Rare H (None) /hpf Urine Bacteria Rare H (None) /hpf Microbiology - Last 24 Hours (Table) 05/29/19 23:04 Blood Culture Gram Stain - Preliminary Blood Blood Culture - Preliminary Escherichia coli 05/30/19 13:45 Urine Culture - Preliminary Urine,Voided 05/29/19 23:04 Blood Culture - Final Blood Assessment and Plan Plan: Assessment: 1. Acute kidney injury mostly prerenal secondary to hypotension and nonsteroidals. Renal function improving. Creatinine 1.8 today. Trace proteinuria on UA. 2. Metabolic acidosis secondary to acute kidney injury and diarrhea. Improved. 3. Gallstones with possible biliary obstruction. Scheduled for ERCP today. 4. History of A. fib. Rate controlled. Plan: Discontinue bicarbonate drip. Start normal saline at 70 mL an hour. Add oral sodium bicarbonate. Avoid nephrotoxins. Repeat electrolytes in the morning.
--- NOTE | 2019-05-31 11:31 | P.PN ---
<Patricia Hernandez A - Last Filed: 05/31/19 11:28> Subjective Progress Note Date: 05/31/19 CHIEF COMPLAINT: acute cholecystitis HISTORY OF PRESENT ILLNESS: Patient examined at the bedside. He was unable to have MRCP yesterday due to body habitus. He is scheduled for ERCP today with Dr. Alston. He denies abdominal pain. Denies nausea or vomiting. WBC 9.3. Bilirubin 5.5. AST 79. ALT 164. PHYSICAL EXAM: VITAL SIGNS: Reviewed. GENERAL: Well-developed in no acute distress. Jaundice. HEENT: Extraocular movements grossly intact. Moist buccal mucosa. Head is atraumatic, normocephalic. Hears conversational speech. No nasal drainage. NECK: Supple without lymphadenopathy. CHEST: Non-labored respirations and equal bilateral excursions. CARDIOVASCULAR: Regular rate with regular rhythm. Palpable 2+ radial pulses. ABDOMEN: Soft. Nontender with palpation. Positive bowel sounds. MUSCULOSKELETAL: No clubbing or cyanosis. NEUROLOGIC: No focal or lateralizing signs. Cranial nerves II through XII grossly intact. PSYCH: Appropriate affect. Alert and oriented to person, place and time. SKIN: Well perfused. Good skin turgor. ASSESSMENT: 1. Nausea and vomiting, resolved 2. Cholelithiasis, suspected cholangitis and cholecystitis, possible choledocholithiasis PLAN: Continue IV antibiotics. Monitor WBC Patient scheduled for ERCP today with Dr. Alston Continue to hold Eliquis. Heparin subcu for DVT prophylaxis Cholecystectomy tentatively scheduled for tomorrow with Dr. Elliott. Nothing by mouth after midnight Nurse practitioner note has been reviewed by physician. Signing provider agrees with the documented findings, assessment, and plan of care. Objective - Vital Signs Vital signs: Vital Signs Temp 97.5 F L 05/31/19 08:00 Pulse 72 05/31/19 11:19 Resp 20 05/31/19 08:00 BP 107/72 05/31/19 08:00 Pulse Ox 96 05/31/19 08:00 Intake & Output 05/30/19 05/31/19 05/31/19 18:59 06:59 18:59 Intake Total 2650 Output Total 240 700 Balance 2410 -700 Weight 97 kg Intake: Intake, IV Titration 2650 Amount Sodium Chloride 0.9% 1, 150 000 ml @ 100 mls/hr IV . Q10H [facility] Rx#:[id number] Sodium Chloride 0.9% 1, 2500 000 ml @ 999 mls/hr IV . Q1H1M [facility] Rx#:[id number] Output: Urine 240 700 Other: Voiding Method Urinal - Labs CBC & Chem 7: 05/31/19 06:30 05/31/19 06:30 Labs: Abnormal Lab Results - Last 24 Hours (Table) 05/30/19 05/31/19 05/31/19 Range/Units 13:45 06:30 06:30 Hgb 12.3 L (13.0-17.5) gm/dL Hct 38.5 L (39.0-53.0) % RDW 17.5 H (11.5-15.5) % Lymphocytes # 0.6 L (1.0-4.8) k/uL BUN 36 H (9-20) mg/dL Creatinine 1.81 H (0.66-1.25) mg/dL Calcium 7.6 L (8.4-10.2) mg/dL Total Bilirubin 5.5 H (0.2-1.3) mg/dL AST 79 H (17-59) U/L ALT 164 H (21-72) U/L Alkaline Phosphatase 230 H (38-126) U/L Albumin 3.2 L (3.5-5.0) g/dL Urine Protein Trace H (Negative) Urine Blood Small H (Negative) Urine Bilirubin 2+ H (Negative) Urine WBC 16 H (0-5) /hpf Amorphous Sediment Rare H (None) /hpf Urine Bacteria Rare H (None) /hpf Microbiology - Last 24 Hours (Table) 05/29/19 23:04 Blood Culture Gram Stain - Preliminary Blood Blood Culture - Preliminary Escherichia coli 05/30/19 13:45 Urine Culture - Preliminary Urine,Voided 05/29/19 23:04 Blood Culture - Final Blood <Ann Elliott - Last Filed: 06/01/19 20:55> Subjective Patient reports no abdominal pain. Following his ERCP, finding of multiple stones were confirmed. Surgical intervention was described for cholecystectomy. Patient is high risk for perioperative complications secondary to ischemic card iomyopathy with hypokinesis including COPD. Objective - Vital Signs Vital signs: Vital Signs Temp 97.4 F L 06/01/19 15:55 Pulse 66 06/01/19 17:55 Resp 18 06/01/19 15:55 BP 116/77 06/01/19 17:55 Pulse Ox 98 06/01/19 17:55 Intake & Output 06/01/19 06/01/19 06/02/19 06:59 18:59 06:59 Intake Total 840 400 50 Output Total 1150 500 50 Balance -310 -100 0 Weight 97.3 kg Intake: IV 400 50 Oral 840 0 Output: Urine 1150 500 Straight 1000 Estimated Blood Loss 50 Other: Voiding Method Urinal Urinal - Labs CBC & Chem 7: 06/01/19 05:45 06/01/19 05:45 Labs: Abnormal Lab Results - Last 24 Hours (Table) 06/01/19 06/01/19 Range/Units 05:45 05:45 RBC 4.20 L (4.30-5.90) m/uL Hgb 11.6 L (13.0-17.5) gm/dL Hct 37.0 L (39.0-53.0) % RDW 17.6 H (11.5-15.5) % Lymphocytes # 0.5 L (1.0-4.8) k/uL Chloride 108 H (98-107) mmol/L BUN 23 H (9-20) mg/dL Creatinine 1.33 H (0.66-1.25) mg/dL Calcium 7.9 L (8.4-10.2) mg/dL Total Bilirubin 3.9 H (0.2-1.3) mg/dL ALT 123 H (21-72) U/L Alkaline Phosphatase 230 H (38-126) U/L Total Protein 6.0 L (6.3-8.2) g/dL Albumin 2.9 L (3.5-5.0) g/dL Microbiology - Last 24 Hours (Table) 05/30/19 14:52 Blood Culture - Preliminary Blood No Growth after 48 hours 05/31/19 06:30 Blood Culture - Preliminary Blood No Growth after 24 hours 05/29/19 23:04 Blood Culture Gram Stain - Final Blood Blood Culture - Final Escherichia coli 05/30/19 13:45 Urine Culture - Final Urine,Voided
[2019-05-31] MEDS ORDERED: INDOMETHACIN 50MG SUPPOSITORY RECTAL ONE (12:30)
--- NOTE | 2019-05-31 13:53 | P.PN ---
Subjective Patient is a pleasant 74-year-old gentleman came in with the severe sepsis secondary to cholecystitis and possible choledocholithiasis and ascending cholangitis. Patient was bacteremic with E. coli, patient is on broad-spectrum antibiotics presently Zosyn this can be changed once we get the blood cultures and studies repeat blood cultures were obtained for yesterday and today is still pending. Patient had acute tubular necrosis with muddy brown casts and many brown urine although serum creatinine is improving and presently around 1.7 compared to 2.25 yesterday. Patient is less hypotensive today patient was started back on Cardizem for his A. fib. Patient's Eliquis is being held for possible surgery cholecystectomy need to happen sooner than, liver enzymes are improving. Leukocytosis improving, urine output improved improved significantly patient will undergo ERCP today. Constitutional: Denied any fatigue denied any fever. Cardio vascular: denied any chest pain, palpitations Gastrointestinal denied any nausea vomiting Pulmonary: Denied any shortness of breath cough Neurologic denied any new focal deficits All inpatient medications were reviewed and appropriate changes in these medications as dictated in the interval history and assessment and plan. Objective - Vital Signs Vital signs: Vital Signs Temp 98.2 F 05/31/19 11:40 Pulse 77 05/31/19 11:40 Resp 18 05/31/19 11:40 BP 115/72 05/31/19 11:40 Pulse Ox 97 05/31/19 11:40 Intake & Output 05/30/19 05/31/19 05/31/19 18:59 06:59 18:59 Intake Total 2650 Output Total 240 700 400 Balance 2410 -700 -400 Weight 97 kg Intake: Intake, IV Titration 2650 Amount Sodium Chloride 0.9% 1, 150 000 ml @ 100 mls/hr IV . Q10H [facility] Rx#:[id number] Sodium Chloride 0.9% 1, 2500 000 ml @ 999 mls/hr IV . Q1H1M [facility] Rx#:[id number] Output: Urine 240 700 400 Other: Voiding Method Urinal Urinal - Exam PHYSICAL EXAMINATION: GENERAL: The patient is alert and oriented x3, not in any acute distress. obese HEENT: Pupils are round and equally reacting to light. EOMI. does have scleral icterus. No conjunctival pallor. Normocephalic, atraumatic. No pharyngeal erythema. No thyromegaly. CARDIOVASCULAR: S1 and S2 present. No murmurs, rubs, or gallops. PULMONARY: Chest is clear to auscultation, no wheezing or crackles. patient has chest wall deformity because of his multiple chest surgeries post valve replacement which was complicated and was subsequently addressed with muscle graft. ABDOMEN: Soft, nontender, nondistended, normoactive bowel sounds. No palpable or ganomegaly. MUSCULOSKELETAL: No joint swelling or deformity. EXTREMITIES: No cyanosis, clubbing, or pedal edema. NEUROLOGICAL: Gross neurological examination did not reveal any focal deficits. SKIN: No rashes. - Labs CBC & Chem 7: 05/31/19 06:30 05/31/19 06:30 Labs: Abnormal Lab Results - Last 24 Hours (Table) 05/30/19 05/31/19 05/31/19 Range/Units 13:45 06:30 06:30 Hgb 12.3 L (13.0-17.5) gm/dL Hct 38.5 L (39.0-53.0) % RDW 17.5 H (11.5-15.5) % Lymphocytes # 0.6 L (1.0-4.8) k/uL BUN 36 H (9-20) mg/dL Creatinine 1.81 H (0.66-1.25) mg/dL Calcium 7.6 L (8.4-10.2) mg/dL Total Bilirubin 5.5 H (0.2-1.3) mg/dL AST 79 H (17-59) U/L ALT 164 H (21-72) U/L Alkaline Phosphatase 230 H (38-126) U/L Albumin 3.2 L (3.5-5.0) g/dL Urine Protein Trace H (Negative) Urine Blood Small H (Negative) Urine Bilirubin 2+ H (Negative) Urine WBC 16 H (0-5) /hpf Amorphous Sediment Rare H (None) /hpf Urine Bacteria Rare H (None) /hpf Microbiology - Last 24 Hours (Table) 05/29/19 23:04 Blood Culture Gram Stain - Preliminary Blood Blood Culture - Preliminary Escherichia coli 05/30/19 13:45 Urine Culture - Preliminary Urine,Voided 05/29/19 23:04 Blood Culture - Final Blood Assessment and Plan Plan: -cholelithiasis , cholecystitis and ascending cholangitis and sepsis patient may have choledocholithiasis patient is bacteremic with E. coli possible sources gallbladder. Sensory is are pending continue with Zosyn which can be downgraded once we get the culture sensitivities. Patient will need the total 2 weeks of antibiotics after bacteremia is cleared. She'll undergo ERCP today possible cholecystectomy tomorrow -congestive heart failure chronic diastolic dysfunction:Without any acute exacerbation, patient may not require any Lasix upon discharge it appears like patient had heart failure exacerbation 7 had he had valvular dysfunction which was replaced now -acute renal failure: Secondary to prerenal azotemia as well as acute tubular necrosis improving with IV fluids and acute tubular necrosis secondary to sepsis Patient is fairly euvolemic at this time actually hypovolemic patient will be continued on IV fluids and will cut down the IV fluids because of his previous history of heart failure -Atrial fibrillation patient presently rate controlled anticoagulation is on hold with anticipation of possible ERCP and cholecystectomythe patient is rate controlled in sinus rhythm at this time -Hyperlipidemia -hypertension -History of thyroid cancer status post radioactive iodine treatment and patient is presently in thyroid medications which will be continued. -Status post aortic valve replacement REPLACEMENT with bovine valve and mitral valve repair -depression -since we're holding Eliquis patient may need DVT prophylaxiswith subcutaneous heparin. A prophylaxis with Protonix
[2019-05-31] MEDS ORDERED: IOPAMIDOL-300 50ML BTL MISCELLANE ONE (14:20)
--- NOTE | 2019-05-31 15:10 | CONS ---
CONSULTATION Mr. Stevenson is a 74-year-old male with known history of mitral valve repair, aortic valve replacement 2017, who presented with symptoms of nausea and vomiting after Thanksgiving dinner. On presentation he was noted to have elevated LFTs as well as elevated bilirubin. He has been evaluated by Dr. Alston and Dr. Elliott and was found to have gallstones but no biliary ductal dilatation. Cardiology consultation was requested for evaluation for possible surgical intervention. The patient has had the surgery done in [address] Riggs because of severe mitral regurgitation and moderate aortic regurgitation. His postoperative course was complicated by sterile wound dehiscences requiring repeated surgery. He had repeated admission to the hospital. He has a history of paroxysmal atrial fibrillation, has been maintained on anticoagulation as an outpatient. 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 He has chronic dyspnea on exertion but no chest pain. At the time of cardiac catheterization, there was no evidence of significant obstructive coronary disease. His left ventricular systolic function has been relatively preserved. He denies any clear PND or orthopnea. He has no significant peripheral edema. No dizziness. No palpitation or syncope. MEDICATIONS: At the time of admission included Eliquis 5 mg twice a day, diltiazem 240 mg daily, Aricept 5 mg twice a day, Lasix on a p.r.n. basis, levothyroxine 0.137 mg daily, metoprolol tartrate 25 mg daily, Aldactone 25 mg daily, Spiriva and Effexor. Coronary risk factors are remarkable for the history of hypertension. He is nondiabetic, nonsmoker. REVIEW OF SYSTEMS: RESPIRATORY SYSTEM: He has dyspnea on exertion. No recent wheezing or cough. GI SYSTEM: He had nausea and vomiting. No GI bleeding. SYSTEM: He had no recent dysuria or hematuria. He had a prior perforated bladder. NERVOUS SYSTEM: No stroke or seizure. PHYSICAL EXAMINATION: A 74-year-old male, alert, oriented, in no apparent distress. Blood pressure 107/70 with a heart rate in the 70s. HEAD: Normocephalic. EYES: Sclerae icteric. NECK: Good upstroke, no bruit, no venous distention. LUNGS: No wheezes with mild decrease in breath sounds. Chest wall with evidence of sternal flap noted. HEART: Regular rate and rhythm, S1, S2. No S3 with systolic murmur heard at the base, ejection type, no diastolic murmur, no rub. ABDOMEN: Soft, nontender. No organomegaly. Positive bowel sounds. EXTREMITIES: No edema, intact pulses. Echocardiogram revealed ejection fraction 50% to 55% with a mean gradient across the aortic valve of 5 mmHg and evidence of mitral valve repair with mild mitral regurgitation. His EKG revealed a sinus mechanism, rate of 108 with a right bundle branch block and left axis deviation. His lab data on presentation revealed BUN and creatinine 36 and 1.81. His bilirubin is down to 5.5, AST of 79, ALT of 164. His hemoglobin 12.3, white blood cell of 9.3. His gallbladder ultrasound revealed numerous gallstones, dilated gallbladder with evidence suggestive of cholecystitis with mildly dilated common bile duct. The patient is scheduled for ERCP today by Dr. Alston. He has been seen by Dr. Elliott as well. IMPRESSION: 1. Symptoms of abdominal pain with nausea and the vomiting and elevated bilirubin and evidence of cholelithiasis. 2. Status post mitral valve repair and aortic valve replacement. 3. Paroxysmal atrial fibrillation, continued sinus mechanism. 4. History of hypertension. 5. History of hyperlipidemia. RECOMMENDATION: From the cardiac standpoint, patient is stable to proceed with surgical intervention if needed. He has no history of coronary artery disease. His anticoagulation has been on hold and will be re-initiated once cleared by the GI Service. Depending on his progress, further recommendation will be made. Thank you for this consult. Will follow with you. MMODL / IJN: [id number] /
[2019-05-31] MEDS ORDERED: IV FLUID CONTINUATION 1,000 ML IV ONE (15:40)
[2019-05-31] MEDS ORDERED: PROPOFOL 10 MG/ML 20 ML VIAL IV ONE (16:04)
[2019-05-31] MEDS ORDERED: GLYCOPYRROLATE 0.2 MG/ML 2 ML VIAL ONE (16:04)
[2019-05-31] MEDS ORDERED: fentaNYL (PF) 50 MCG/ML 2 ML AMP ONE (16:04)
[2019-05-31] MEDS ORDERED: LIDOCAINE 1% INJ 10MG/ML (20 ML MDV) ONE (16:04)
[2019-05-31] MEDS ORDERED: KETAMINE 10 MG/ML 20 ML VIAL ONE (16:04)
--- NOTE | 2019-05-31 16:41 | P.PCN ---
Date of Procedure: 05/31/19 Procedure(s) Performed: Brief history: Patient is a 74 year-old pleasant male scheduled for an ERCP as part of evaluation of abdominal pain , jaundice and elevated serum transaminases for the last 2 days' duration. Ultrasound of abdomen and CT showed multiple gallstones with no biliary ductal dilation. He developed E. coli bacteremia/ascending cholangitis and has been on proximal rectum antibiotics. He scheduled for an ERCP for possible CBD stones Procedure performed: ERCP with biliary sphincterotomy and balloon stone extraction Preoperative diagnoses: Ascending cholangitis/elevated LFTs and jaundice IV sedation per anesthesia: Procedure: After informed consent was obtained from the patient and after the risks benefits and complications including bleeding perforation and pancreatitis explained in detail the patient was brought into the endoscopy unit. The patient was placed in prone position and IV conscious sedation was administered by anesthesia under continuous monitoring. The Olympus side-viewing duodenoscope was then inserted into the mouth and esophagus intubated without any difficulty. The scope was gradually advanced into the stomach and duodenum. The major papilla was identified without any difficulty. Initial cannulation resulted in a presentation of the common bile duct that appeared slightly dilated measuring about 10 mm in diameter with several filling defects noted the largest measuring 7-8 mm in size. At this time a biliary sphincterotomy was performed over the guidewire after the catheter was exchanged and the sphincterotomy was extended to 1 cm at 11 o'clock position. Following this an 8.5 and admitted balloon was passed over the guidewire into the proximal CBD and gently withdrawn and multiple stones were seen exiting the ampulla. There were at least 5 stones with significant amount of sludge that came out of the ampulla. Occlusion cholangiogram was performed as the filling defects were identified. At this time the procedure was terminated and the patient tolerated the procedure well. There was mild filling of the pancreatic duct during the procedure which appeared normal Impression: Slightly dilated common bile duct with multiple filling defects status post biliary sphincterotomy and balloon stone extraction at least 5 stones with s ludge be seen exiting the ampulla Normal pancreatic duct Recommendations: The findings of this examination were discussed with the patient as well as a family. He'll be started on clear liquid diet. Continue broad-spectrum antibiotics. Repeat labs in the morning.
[2019-05-31] MEDS: SODIUM BICARBONATE TAB 650 MG TAB PO SCH ×2 (20:21→21:00)
--- NOTE | 2019-05-31 21:04 | FL ---
EXAMINATION TYPE: FL ERCP biliary duct only DATE OF EXAM: 05/31/2019 CLINICAL HISTORY: Jaundice and CBD stones. TECHNIQUE: Fluoroscopy. COMPARISON: CT abdomen and pelvis from yesterday. FINDINGS: Fluoroscopic guidance was provided during ERCP procedure performed by Dr. Alston. A total of 29 seconds of fluoroscopic time was utilized during the procedure and 3 spot images are acquired. Images acquired show successful opacification of bile duct system, please refer to procedure note as I was not present nor performed procedure. IMPRESSION: As Above.
[2019-06-01] MEDS: SODIUM CHLORIDE 0.9% 1,000 ML IV SCH (01:00)
[2019-06-01] MEDS: PIPERACILLIN-TAZOBACTAM 3.375 GM in SODIUM CHLORIDE 0.9% 100 ML IVPB SCH ×3 (03:53→21:00)
[2019-06-01] MEDS: LEVOTHYROXINE 137 MCG TAB PO SCH (06:03)
[2019-06-01 06:39] LABS: Anisocytosis Slight; Basophils % (A) 1 %; Eosinophils # (A) 0.1 k/uL (0-0.7); Eosinophils % (A) 2 %; HGB 11.6 gm/dL (13.0-17.5); Hypochromasia Slight; Lymphocytes # (A) 0.5 k/uL (1.0-4.8); Lymphocytes % (A) 8 %; MCH 27.6 pg (25.0-35.0); MCHC 31.4 g/dL (31.0-37.0); Mean Platelet Volume 8.9; Monocytes # (A) 0.3 k/uL (0-1.0); Monocytes % (A) 5 %; Neutrophils # (A) 4.7 k/uL (1.3-7.7); Neutrophils % (A) 81 %; Platelet Count 170 k/uL (150-450); RDW 17.6 % (11.5-15.5); WBC 5.8 k/uL (3.8-10.6)
[2019-06-01 07:00] LABS: Albumin 2.9 g/dL (3.5-5.0); Calcium 7.9 mg/dL (8.4-10.2); Magnesium 2.1 mg/dL (1.6-2.3); Total Bilirubin 3.9 mg/dL (0.2-1.3)
[2019-06-01] MEDS: IPRATROPIUM 0.5 MG/2.5 ML NEBU INHALATION SCH ×4 (07:36→19:55)
--- NOTE | 2019-06-01 10:17 | P.PN ---
Subjective Progress Note Date: 06/01/19 This is a pleasant 74-year-old gentleman with history of mitral valve repair, aortic valve replacement 2017 who presented to the hospital with symptoms of nausea and vomiting, he was noted to have significantly elevated LFTs as well as elevated bilirubin. Cardiology consultation was initially requested for evaluation for possible surgical intervention, the patient was seen in consultation yesterday by Dr. Herron and cleared for surgery area patient did undergo an ERCP yesterday which showed dilated common bile duct, 5 stones were removed, and today he is apparently scheduled for surgery. He is overall feeling better today. Blood pressure this morning 97/60 with a heart rate in the 70s, 96% on room air. White blood cell count 5.8, hemoglobin 11.6, platelet count 170. Sodium 139, potassium 4.0, BUN 23 and creatinine 1.3, magnesium 2.1, AST 52, ALT 123, alk phos 2:30, albumin 2.9, total bilirubin 3.9. Objective - Vital Signs Vital signs: Vital Signs Temp 98 F 06/01/19 04:36 Pulse 74 06/01/19 08:45 Resp 18 06/01/19 08:45 BP 97/63 06/01/19 08:45 Pulse Ox 96 06/01/19 08:45 Intake & Output 05/31/19 06/01/19 06/01/19 18:59 06:59 18:59 Intake Total 550 840 0 Output Total 1000 1150 Balance -450 -310 0 Weight 97.3 kg Intake: IV 550 Oral 840 0 Output: Urine 1000 1150 Straight 1000 Other: Voiding Method Urinal Urinal Urinal - Exam PHYSICAL EXAMINATION: GENERAL: 74-year-old gentleman in no acute distress at the time of my examination HEENT: Head is atraumatic, normocephalic. Pupils equal, round. Sclera anicteric. Conjunctiva are clear. Mucous membranes of the mouth are moist. Neck is supple. There is no elevated jugular venous pressure. No carotid bruit is heard. HEART EXAMINATION: Heart S1 and S2 systolic ejection murmur is heard CHEST EXAMINATION: Lungs are clear to auscultation and precussion. No chest wall tenderness is noted on palpation or with deep breathing. ABDOMEN: Soft, nontender. Bowel sounds are heard. No organomegaly noted. EXTREMITIES: 2+ peripheral pulses with no evidence of peripheral edema and no calf tenderness noted. NEUROLOGIC patient is awake, alert and oriented 3 . . - Labs CBC & Chem 7: 06/01/19 05:45 06/01/19 05:45 Labs: Abnormal Lab Results - Last 24 Hours (Table) 06/01/19 06/01/19 Range/Units 05:45 05:45 RBC 4.20 L (4.30-5.90) m/uL Hgb 11.6 L (13.0-17.5) gm/dL Hct 37.0 L (39.0-53.0) % RDW 17.6 H (11.5-15.5) % Lymphocytes # 0.5 L (1.0-4.8) k/uL Chloride 108 H (98-107) mmol/L BUN 23 H (9-20) mg/dL Creatinine 1.33 H (0.66-1.25) mg/dL Calcium 7.9 L (8.4-10.2) mg/dL Total Bilirubin 3.9 H (0.2-1.3) mg/dL ALT 123 H (21-72) U/L Alkaline Phosphatase 230 H (38-126) U/L Total Protein 6.0 L (6.3-8.2) g/dL Albumin 2.9 L (3.5-5.0) g/dL Microbiology - Last 24 Hours (Table) 05/31/19 06:30 Blood Culture - Preliminary Blood No Growth after 24 hours 05/29/19 23:04 Blood Culture Gram Stain - Final Blood Blood Culture - Final Escherichia coli 05/30/19 13:45 Urine Culture - Final Urine,Voided 05/30/19 14:52 Blood Culture - Preliminary Blood No Growth after 24 hours Assessment and Plan Plan: Assessment and plan #1 cholelithiasis, a RESP THERAPIST performed yesterday, 5 stones were removed, patient is scheduled for surgery today #2 status post mitral valve repair and aortic valve replacement #3 paroxysmal atrial fibrillation, continuing to be in normal sinus rhythm #4 hypertension #6 hyperlipidemia Plan From cardiology's perspective, patient is stable to proceed with surgical intervention, anticoagulation is currently on hold and will need to be reinitiated once cleared by GI service/surgery. We will continue to follow. DNP note has been reviewed, I agree with a documented findings and plan of care. Patient was seen and examined.
[2019-06-01] MEDS: SODIUM BICARBONATE TAB 650 MG TAB PO SCH (11:52)
[2019-06-01] MEDS: VENLAFAXINE HCL ER 75 MG CAP PO SCH (11:52)
[2019-06-01] MEDS: DILTIAZEM CD 120 MG CAP.ER.24H PO SCH (11:52)
[2019-06-01] MEDS: HEPARIN SODIUM,PORCINE 5,000 UNIT/ML 1 ML VIAL SQ SCH ×3 (11:53→17:55)
[2019-06-01] MEDS: PANTOPRAZOLE 40 MG/10 ML VIAL IVP SCH (11:53)
[2019-06-01] MEDS ORDERED: INDOCYANINE GREEN 25 MG VIAL IV ONE (12:00)
--- NOTE | 2019-06-01 16:34 | P.HPADDEND ---
H&P Addendum H&P Addendum Date: 06/01/19 Benefits and risks of cholecystectomy described. Robotic-assisted approach reviewed.
--- NOTE | 2019-06-01 17:53 | PN ---
PROGRESS NOTE DATE OF DICTATION: 06/01/2019 Patient is a 74-year-old pleasant white male who was admitted to the hospital with ascending cholangitis and nausea, vomiting for the last few days' duration. He was noted to have elevated LFTs and jaundice. He had an ERCP done yesterday that revealed dilated common bile duct with multiple stones that were extracted. He is doing much better. Abdominal symptoms have completely resolved. No fever, chills or night sweats. PHYSICAL EXAMINATION: He appears comfortable. No apparent distress. VITAL SIGNS: Stable. Blood pressure 126/81, pulse rate 71, temperature 97.4. HEENT examination unremarkable. Conjunctivae pink. Sclerae anicteric. Oral cavity no lesions. NECK: No JVD or lymph node enlargement. CHEST: Clear to auscultation. HEART: Regular rate and rhythm. ABDOMEN: Soft. Bowel sounds are positive. No organomegaly. EXTREMITIES: No pedal edema. SKIN: No rashes. NEUROLOGIC: Alert and oriented x3. No focal deficits. LABS: Labs done today show WBC 5.8, hemoglobin 11.6, platelets are normal. Bilirubin is down to 3.9. AST 52, ALT 123 and alkaline phosphatase 230. IMPRESSION: 1. Ascending cholangitis secondary to common bile duct stones/Escherichia coli bacteremia, presently on broad-spectrum antibiotics, status post endoscopic retrograde cholangiopancreatography biliary sphincterotomy and balloon stone extraction yesterday. Patient doing much better. 2. Elevated liver function tests secondary to obstructive jaundice. They are gradually improving following ERCP and biliary sphincterotomy. 3. Multiple gallstones. RECOMMENDATIONS: 1. Continue with broad-spectrum antibiotics. 2. Patient is scheduled for laparoscopic cholecystectomy today. 3. Repeat labs in the morning. Will follow with you closely. Thank you for this consultation. MMODL / IJN: [id number] /
[2019-06-01] MEDS ORDERED: fentaNYL (PF) 50 MCG/ML 2 ML AMP ONE (18:54)
[2019-06-01] MEDS ORDERED: LIDOCAINE 1% INJ 10MG/ML (20 ML MDV) ONE (18:54)
[2019-06-01] MEDS ORDERED: GLYCOPYRROLATE 0.2 MG/ML 2 ML VIAL ONE (18:54)
[2019-06-01] MEDS ORDERED: SUCCINYLCHOLINE CHLORIDE 100 MG/5 ML SYR IV ONE (18:54)
[2019-06-01] MEDS ORDERED: PROPOFOL 10 MG/ML 20 ML VIAL IV ONE (18:54)
[2019-06-01] MEDS ORDERED: ROCURONIUM BROMIDE 10 MG/ML 10 ML VIAL IV ONE (18:54)
[2019-06-01] MEDS ORDERED: NEOSTIGMINE 1 MG/ML 10 ML VIAL ONE (18:54)
[2019-06-01] MEDS ORDERED: LACTATED RINGERS 1,000 ML IV ONE (18:57)
[2019-06-01] MEDS ORDERED: BUPIVACAIN-EPI 0.25%-1:200,000 30 ML VIAL SQ ONE (19:34)
[2019-06-01] MEDS ORDERED: ONDANSETRON 4 MG/2 ML VIAL IVP PRN (20:55)
[2019-06-01] MEDS ORDERED: ACETAMINOPHEN TAB 325 MG TAB PO PRN (20:57)
[2019-06-01] MEDS ORDERED: HYDROmorphone 1 MG/ML 1 ML SYRINGE IVP PRN (20:57)
--- NOTE | 2019-06-01 21:14 | P.OP ---
Date of Procedure: 06/01/19 Description of Procedure: SURGEON: ADA VILLAVICENCIO MD PREOPERATIVE DIAGNOSES: 1. Symptomatic gallstones 2. Choledocholithiasis with history of sepsis 3. Diabetes type 2 with complications, diabetic nephropathy 4. History of CABG for complications and sternal flap 5. Ischemic cardiomyopathy with hypokinesis 6. History of multiple abdominal surgeries 7. Chronic obstructive pulmonary disease 8. Dementia 9. Hypertensive heart disease 10. Paroxysmal atrial fibrillation 11. Chronic anticoagulation 12. Depressive disorder 13. Hypothyroidism 14. Congestive heart failure with diastolic dysfunction 15. Hyperlipidemia 16. History of pulmonary embolism 17. History of deep venous thrombosis 18. History of thyroid cancer 19. Obesity due to excess calories, BMI 32.6 POSTOPERATIVE DIAGNOSES: 1. Symptomatic gallstones 2. Choledocholithiasis with history of sepsis 3. Diabetes type 2 with complications, diabetic nephropathy 4. History of CABG for complications and sternal flap 5. Ischemic cardiomyopathy with hypokinesis 6. History of multiple abdominal surgeries 7. Chronic obstructive pulmonary disease 8. Dementia 9. Hypertensive heart disease 10. Paroxysmal atrial fibrillation 11. Chronic anticoagulation 12. Depressive disorder 13. Hypothyroidism 14. Congestive heart failure with diastolic dysfunction 15. Hyperlipidemia 16. History of pulmonary embolism 17. History of deep venous thrombosis 18. History of thyroid cancer 19. Obesity due to excess calories, BMI 32.6 20. Hepatomegaly 21. Hydrops cholecystitis 22. Incisional hernia, epigastrium, 5 cm OPERATION: Robotic-assisted da John Paul Xi laparoscopic cholecystectomy, multiport with FIREF LY ESTIMATED BLOOD LOSS: 50 mL. SPECIMENS REMOVED: Gallbladder. COMPLICATIONS: None. OPERATIVE FINDINGS: 1. Enlarged gallbladder consistent with hydrops cholecystitis including severe hepatomegaly adding complexity to the case, over 45 minutes 2. Console time 55 minutes INDICATIONS: The patient is a 74-year-old male who presents some somatic gallstones. He came to the emergency room septic with ascending cholangitis. He status post ERCP from yesterday. Surgical intervention with a laparoscopic cholecystectomy was described at length including injury to the biliary tree, bleeding, infection, need for further surgery. Informed consent was obtained. Robotic assisted laparoscopic approach was described. Benefits and risks of the procedure including but not limited to bleeding, infection, injury to the biliary tree was described. Informed consent was obtained. DESCRIPTION OF PROCEDURE: Patient was brought to the operating room, placed in supine position. After general induction, the abdomen had been prepped and draped in standard sterile fashion. The robotic da John Paul XI system was primed. After a timeout protocol was performed, the patient had been prepped and draped in standard sterile fashion. The patient was injected with indocyanine green. A 5 mm 0 degrees laparoscopic trocar entry was performed along the left upper quadrant. The abdomen insufflated to 15 mmHg pressure which was tolerated well. Diagnostic laparoscopy demonstrated no injury to bowel viscera or mesentery. No intra-abdominal adhesions were identified despite his multiple abdominal surgeries. A incisional hernia above the umbilicus was identified of 4 cm easily reducible. The liver was moderately enlarged consistent with moderate to severe hepatomegaly. Next, two 8 mm robotic ports were placed along the right upper abdomen. The camera 8-mm port was maintained along the epigastrium. Another 8 mm port was placed along the left upper abdominal wall after exchanging the 5 mm port. Please note that the ports were placed at least 10 to 15 cm away from the target anatomy of the gallbladder. The robot was docked along the left lateral abdomen. The patient was repositioned in reverse Trendelenburg position. Using a grasper for arm 3, a grasper for arm 4, including hook cautery for arm 1, the robotic system was docked and primed as described. A vessel sealer was opened to facilitate dissection. Instruments were interchanged by the bankruptcy legal assistant including hook cautery, Bovie cautery and clip appliers. I had sat at the console. Omental adhesions were identified involving the fundus including infundibulum and body of the gallbladder consistent with chronic cholecystitis. Moderate inflammatory tissues were found along the cystic structures from his recent ERCP. Secondary to these findings including extremely large liver and extremely large gallbladder, a dome down technique was performed using hook cautery. With the above findings, complexity of the case including large gallbladder and large liver added extra 45 minutes to the case. A critical view of safety was obtained. Hemostasis was controlled with combination of cautery with vessel sealer. To c arefully resect the gallbladder from the hepatic fossa, vessel sealer was used to divide the cystic artery including cystic duct. Indocyanine green confirmed no injury to the common bile duct. Additionally, no evidence of bile leak was identified and confirmed with indocyanine green. Electro-Bovie cautery was used to remove the gallbladder from the hepatic fossa. Mild decompression of the gallbladder occurred. Hemostasis was checked and found to be adequate. The robot was undocked. I re-scrubbed into the case. Using a 10 mm Endo Catch bag via the left upper quadrant incision, the specimen was removed from the abdominal cavity. All pneumoperitoneum instruments were evacuated from the abdominal cavity. The incisions were reapproximated using 4-0 Monocryl in an interrupted subcuticular fashion. Fascial defects were less than 8 mm in size. Please note along the trocar sites, local anesthetic was placed as a field block prior to insertion of all instruments. Liquid glue was applied to the skin. At the left upper quadrant incision, Optifoam was placed. At the end of the procedure needle, sponge, and instrument count had been verified correct by the director medical surgical. The patient was transferred to postanesthesia care unit in stable condition. Intraoperative films were shared with the patient's family who were very pleased with the level of care.
[2019-06-01 21:48] VITALS: RESP 18
[2019-06-02] MEDS: HEPARIN SODIUM,PORCINE 5,000 UNIT/ML 1 ML VIAL SQ SCH ×3 (00:05→16:09)
[2019-06-02] MEDS: SODIUM CHLORIDE 0.9% 1,000 ML IV SCH ×2 (04:15→06:19)
[2019-06-02] MEDS: PIPERACILLIN-TAZOBACTAM 3.375 GM in SODIUM CHLORIDE 0.9% 100 ML IVPB SCH ×3 (04:15→20:17)
[2019-06-02] MEDS: LEVOTHYROXINE 137 MCG TAB PO SCH (06:17)
[2019-06-02 07:01] LABS: Anisocytosis Slight; Basophils % (A) 0 %; Eosinophils % (A) 0 %; HCT 36.6 % (39.0-53.0); HGB 11.5 gm/dL (13.0-17.5); Hypochromasia Slight; Lymphocytes # (A) 0.4 k/uL (1.0-4.8); Lymphocytes % (A) 6 %; MCHC 31.3 g/dL (31.0-37.0); MCV 89.3 fL (80.0-100.0); Mean Platelet Volume 7.8; Monocytes # (A) 0.2 k/uL (0-1.0); Monocytes % (A) 3 %; Neutrophils # (A) 6.4 k/uL (1.3-7.7); Neutrophils % (A) 89 %; Platelet Count 155 k/uL (150-450); RDW 17.9 % (11.5-15.5); WBC 7.2 k/uL (3.8-10.6)
[2019-06-02 07:20] LABS: Albumin 2.9 g/dL (3.5-5.0); Calcium 8.1 mg/dL (8.4-10.2); Potassium 4.3 mmol/L (3.5-5.1); Total Bilirubin 2.6 mg/dL (0.2-1.3); Total Protein 5.9 g/dL (6.3-8.2)
[2019-06-02] MEDS: DILTIAZEM CD 120 MG CAP.ER.24H PO SCH (08:42)
[2019-06-02] MEDS: SODIUM BICARBONATE TAB 650 MG TAB PO SCH ×2 (08:42→20:17)
[2019-06-02] MEDS: TAMSULOSIN 0.4 MG CAP.ER.24H PO SCH (08:42)
[2019-06-02] MEDS: PANTOPRAZOLE 40 MG/10 ML VIAL IVP SCH (08:42)
[2019-06-02] MEDS: IPRATROPIUM 0.5 MG/2.5 ML NEBU INHALATION SCH ×4 (09:54→20:43)
--- NOTE | 2019-06-02 10:41 | PN ---
PROGRESS NOTE DATE OF SERVICE: 06/02/2019. The patient is a pleasant white male admitted to the hospital with ascending cholangitis and E coli bacteremia, status post ERCP with multiple CBD stones extracted 2 days ago. He underwent laparoscopic cholecystectomy last night, doing well. No abdominal pain. No new complaints. No fever, chills, night sweats. PHYSICAL EXAMINATION: Appears comfortable in no apparent distress. VITAL SIGNS: Stable. Blood pressure 122/78, pulse rate 77, temperature 97.9. HEENT examination unremarkable. Conjunctivae pink. Sclerae anicteric. Oral cavity no lesions. NECK: No JVD or lymph node enlargement. CHEST: Clear to auscultation. HEART: Regular rate and rhythm. ABDOMEN: Benign. Bowel sounds are positive. No organomegaly. Very minimal tenderness in the epigastric area. EXTREMITIES: No pedal edema. SKIN no rashes. NEUROLOGIC: Alert and oriented x3. No focal deficits. LABS: From today WBC 7.2, hemoglobin 11.5, platelets normal. AST and ALT are 41 and 94 respectively. T-bilirubin is down to 2.6, alkaline phosphatase 207. IMPRESSION: Ascending cholangitis/E coli bacteremia on broad-spectrum antibiotics status post ERCP with CBD stone removal 2 days ago. He is status post gallbladder surgery last night, doing well. RECOMMENDATIONS: 1. Continue with broad-spectrum antibiotics. 2. Advance diet as tolerated. 3. Repeat labs in the morning. Thank you for this consultation. MMODL / IJN: [id number] /
[2019-06-02] MEDS: VENLAFAXINE HCL ER 75 MG CAP PO SCH (12:05)
--- NOTE | 2019-06-02 12:22 | P.PN ---
Subjective Progress Note Date: 06/02/19 As the pleasant 34-year-old gentleman with history of mitral valve repair, aortic valve replacement 2017 who presented to the hospital with symptoms of nausea and vomiting was noted to have elevated LFTs as well as elevated bilirubin. Her security and privacy consultant see the patient for presurgical clearance. Patient underwent laparoscopic cholecystectomy yesterday which has a coagulation was on hold. Laboratory values today shown improved bilirubin as well as improvement in AST and ALTs and alkaline phosphatase. Renal function is normal this morning. On examination, patient is sitting up at the site of event visiting with family. Denies any chest discomfort, shortness of breath, palpitations, dizziness, lightheadedness or edema. Objective - Vital Signs Vital signs: Vital Signs Temp 98.3 F 06/02/19 08:44 Pulse 80 06/02/19 11:41 Resp 18 06/02/19 08:44 BP 102/69 06/02/19 08:44 Pulse Ox 96 06/02/19 08:44 Intake & Output 06/01/19 06/02/19 06/02/19 18:59 06:59 18:59 Intake Total 400 1050 360 Output Total 1600 50 Balance -1200 1000 360 Weight 96.5 kg Intake: IV 400 50 Intake, IV Titration 1000 Amount Lactated Ringers 1,000 ml 1000 @ 0 mls/hr IV .[facility] [facility] Rx#:[id number] Oral 0 360 Output: Urine 1600 Straight 1100 Estimated Blood Loss 50 Other: Voiding Method Urinal Urinal Urinal # Voids 0 - Exam PHYSICAL EXAMINATION: HEENT: Head is atraumatic, normocephalic. Pupils equal, round. Neck is supple. There is no elevated jugular venous pressure. HEART EXAMINATION: Heart sounds regular, S1 and S2 with a systolic ejection murmur. CHEST EXAMINATION: Lungs are clear to auscultation and precussion. No chest wall tenderness is noted on palpation or with deep breathing. ABDOMEN: Soft, tender. Bowel sounds are heard. No organomegaly noted. EXTREMITIES: 2+ peripheral pulses with no evidence of peripheral edema and no calf tenderness noted. NEUROLOGIC patient is awake, alert and oriented x3. . - Labs CBC & Chem 7: 06/02/19 05:54 06/02/19 05:54 Labs: Abnormal Lab Results - Last 24 Hours (Table) 12/07/19 12/07/19 Range/Units 05:54 05:54 RBC 4.10 L (4.30-5.90) m/uL Hgb 11.5 L (13.0-17.5) gm/dL Hct 36.6 L (39.0-53.0) % RDW 17.9 H (11.5-15.5) % Lymphocytes # 0.4 L (1.0-4.8) k/uL Glucose 123 H (74-99) mg/dL Calcium 8.1 L (8.4-10.2) mg/dL Total Bilirubin 2.6 H (0.2-1.3) mg/dL ALT 94 H (21-72) U/L Alkaline Phosphatase 207 H (38-126) U/L Total Protein 5.9 L (6.3-8.2) g/dL Albumin 2.9 L (3.5-5.0) g/dL Microbiology - Last 24 Hours (Table) 05/31/19 06:30 Blood Culture - Preliminary Blood No Growth after 48 hours 06/01/19 05:45 Blood Culture - Preliminary Blood No Growth after 24 hours 05/30/19 14:52 Blood Culture - Preliminary Blood No Growth after 48 hours Assessment and Plan Assessment: 1 cholelithiasis, status post cholecystectomy #2 status post mitral valve repair and aortic valve replacement #3 paroxysmal atrial fibrillation, maintaining sinus rhythm #4 hypertension #5 hyperlipidemia Plan: From cardiac standpoint, patient is stable. Patient will need to resume Eliquis as soon as cleared by GI/surgical services. We'll follow-up with the patient is an outpatient. We will continue to follow the patient during this admission and provide further recommendations accordingly. DRY BOX OPERATOR note has been reviewed, I agree with a documented findings and plan of care. Patient was seen and examined.
--- NOTE | 2019-06-03 00:27 | P.PN ---
Subjective Progress Note Date: 06/01/19 Principal diagnosis: Cholelithiasis and ascending cholangitis Patient is a pleasant 74-year-old gentleman came in with the severe sepsis secondary to cholecystitis and possible choledocholithiasis and ascending cholangitis. Patient was bacteremic with E. coli, patient is on broad-spectrum antibiotics presently Zosyn this can be changed once we get the blood cultures and studies repeat blood cultures were obtained for yesterday and today is still pending. Patient had acute tubular necrosis with muddy brown casts and many brown urine although serum creatinine is improving and presently around 1.7 compared to 2.25 yesterday. Patient is less hypotensive today patient was started back on Cardizem for his A. fib. Patient's Eliquis is being held for possible surgery cholecystectomy need to happen sooner than, liver enzymes are improving. Leukocytosis improving, urine output improved improved significantly . patient underwent ERCP. 06/01/2019 Patient is status post ERCP yesterday. Showed slightly dilated common bile duct with multiple filling defects status post biliary sphincterotomy and balloon stone extraction at least 5 stones with sludge be seen exiting the ampulla. Normal pancreatic duct. General surgery is planning for laparoscopic cholecystectomy today. Patient has been afebrile otherwise. Converted on broad-spectrum antibiotics. In the form of Zosyn. No complaints of chest pain or shortness of breath. Blood Cultures on 06/15/2019 showed E. coli Constitutional: Denied any fatigue denied any fever. Cardio vascular: denied any chest pain, palpitations Gastrointestinal denied any nausea vomiting Pulmonary: Denied any shortness of breath cough Neurologic denied any new focal deficits All inpatient medications were reviewed and appropriate changes in these medications as dictated in the interval history and assessment and plan. Objective - Vital Signs Vital signs: Vital Signs Temp 98 F 06/01/19 04:36 Pulse 74 06/01/19 08:45 Resp 18 06/01/19 08:45 BP 97/63 06/01/19 08:45 Pulse Ox 96 06/01/19 08:45 Intake & Output 05/31/19 06/01/19 06/01/19 18:59 06:59 18:59 Intake Total 550 840 0 Output Total 1000 1150 Balance -450 -310 0 Weight 97.3 kg Intake: IV 550 Oral 840 0 Output: Urine 1000 1150 Straight 1000 Other: Voiding Method Urinal Urinal Urinal - Exam GENERAL: The patient is alert and oriented x3, not in any acute distress. obese HEENT: Pupils are round and equally reacting to light. EOMI. does have scleral icterus. No conjunctival pallor. Normocephalic, atraumatic. No pharyngeal erythema. No thyromegaly. CARDIOVASCULAR: S1 and S2 present. No murmurs, rubs, or gallops. PULMONARY: Chest is clear to auscultation, no wheezing or crackles. patient has chest wall deformity because of his multiple chest surgeries post valve replacement which was complicated and was subsequently addressed with muscle graft. ABDOMEN: Soft, nontender, nondistended, normoactive bowel sounds. No palpable organomegaly. MUSCULOSKELETAL: No joint swelling or deformity. EXTREMITIES: No cyanosis, clubbing, or pedal edema. NEUROLOGICAL: Gross neurological examination did not reveal any focal deficits. SKIN: No rashes. - Labs CBC & Chem 7: 06/02/19 05:54 06/02/19 05:54 Labs: Abnormal Lab Results - Last 24 Hours (Table) 06/01/19 06/01/19 Range/Units 05:45 05:45 RBC 4.20 L (4.30-5.90) m/uL Hgb 11.6 L (13.0-17.5) gm/dL Hct 37.0 L (39.0-53.0) % RDW 17.6 H (11.5-15.5) % Lymphocytes # 0.5 L (1.0-4.8) k/uL Chloride 108 H (98-107) mmol/L BUN 23 H (9-20) mg/dL Creatinine 1.33 H (0.66-1.25) mg/dL Calcium 7.9 L (8.4-10.2) mg/dL Total Bilirubin 3.9 H (0.2-1.3) mg/dL ALT 123 H (21-72) U/L Alkaline Phosphatase 230 H (38-126) U/L Total Protein 6.0 L (6.3-8.2) g/dL Albumin 2.9 L (3.5-5.0) g/dL Microbiology - Last 24 Hours (Table) 05/31/19 06:30 Blood Culture - Preliminary Blood No Growth after 24 hours 05/29/19 23:04 Blood Culture Gram Stain - Final Blood Blood Culture - Final Escherichia coli 05/30/19 13:45 Urine Culture - Final Urine,Voided 05/30/19 14:52 Blood Culture - Preliminary Blood No Growth after 24 hours Assessment and Plan Assessment: -cholelithiasis , acute cholecystitis and ascending cholangitis and sepsis patient may have choledocholithiasis patient is bacteremic with E. coli possible sources gallbladder. Patient will need the total 2 weeks of antibiotics after bacteremia is cleared. Status post ERCP and stone extraction. -Acute hydrops cholecystitis. Scheduled for laparoscopic cholecystectomy on 06/01/2019 -congestive heart failure chronic diastolic dysfunction:Without any acute exacerbation, patient may not require any Lasix upon discharge it appears like patient had heart failure exacerbation 7 had he had valvular dysfunction which was replaced now -acute renal failure: Secondary to prerenal azotemia as well as acute tubular necrosis improving with IV fluids and acute tubular necrosis secondary to sepsis Patient is fairly euvolemic at this time actually hypovolemic patient will be continued on IV fluids and will cut down the IV fluids because of his previous history of heart failure -Atrial fibrillation patient presently rate controlled anticoagulation is on hold with anticipation of possible ERCP and cholecystectomythe patient is rate controlled in sinus rhythm at this time -Hyperlipidemia -hypertension -History of thyroid cancer status post radioactive iodine treatment and patient is presently in thyroid medications which will be continued. -Status post aortic valve replacement REPLACEMENT with bovine valve and mitral valve repair -depression -since we're holding Eliquis patient may need DVT prophylaxiswith subcutaneous heparin. GI prophylaxis with Protonix Time with Patient: Greater than 30
--- NOTE | 2019-06-03 00:36 | P.PN ---
Subjective Progress Note Date: 06/02/19 Principal diagnosis: Cholelithiasis and ascending cholangitis Patient is a pleasant 74-year-old gentleman came in with the severe sepsis secondary to cholecystitis and possible choledocholithiasis and ascending cholangitis. Patient was bacteremic with E. coli, patient is on broad-spectrum antibiotics presently Zosyn this can be changed once we get the blood cultures and studies repeat blood cultures were obtained for yesterday and today is still pending. Patient had acute tubular necrosis with muddy brown casts and many brown urine although serum creatinine is improving and presently around 1.7 compared to 2.25 yesterday. Patient is less hypotensive today patient was started back on Cardizem for his A. fib. Patient's Eliquis is being held for possible surgery cholecystectomy need to happen sooner than, liver enzymes are improving. Leukocytosis improving, urine output improved improved significantly . patient underwent ERCP. 06/01/2019 Patient is status post ERCP yesterday. Showed slightly dilated common bile duct with multiple filling defects status post biliary sphincterotomy and balloon stone extraction at least 5 stones with sludge be seen exiting the ampulla. Normal pancreatic duct. General surgery is planning for laparoscopic cholecystectomy today. Patient has been afebrile otherwise. Converted on broad-spectrum antibiotics. In the form of Zosyn. No complaints of chest pain or shortness of breath. Blood Cultures on 05/29/2019 showed E. coli 06 02 2019 Patient is currently sitting in a chair comfortably. Tolerating oral diet. No bowel movement or flatus yet. Patient is status post laparoscopic cholecystectomy on 06/01/2019. Liver enzymes trending down. Denied any complaints of worsening abdominal pain. Constitutional: Denied any fatigue denied any fever. Cardio vascular: denied any chest pain, palpitations Gastrointestinal denied any nausea vomiting Pulmonary: Denied any shortness of breath cough Neurologic denied any new focal deficits All inpatient medications were reviewed and appropriate changes in these medications as dictated in the interval history and assessment and plan. Objective - Vital Signs Vital signs: Vital Signs Temp 98.4 F 06/02/19 20:22 Pulse 82 06/02/19 20:55 Resp 18 06/02/19 20:22 BP 122/78 06/02/19 20:22 Pulse Ox 93 L 06/02/19 20:43 Intake & Output 06/02/19 06/02/19 06/03/19 06:59 18:59 06:59 Intake Total 1050 840 Output Total 50 Balance 1000 840 Weight 96.5 kg Intake: IV 50 Intake, IV Titration 1000 Amount Lactated Ringers 1,000 ml 1000 @ 0 mls/hr IV .[employer] Rx#:[id number] Oral 840 Output: Estimated Blood Loss 50 Other: Voiding Method Urinal Urinal Urinal # Voids 0 - Exam GENERAL: The patient is alert and oriented x3, not in any acute distress. obese HEENT: Pupils are round and equally reacting to light. EOMI. does have scleral icterus. No conjunctival pallor. Normocephalic, atraumatic. No pharyngeal erythema. No thyromegaly. CARDIOVASCULAR: S1 and S2 present. No murmurs, rubs, or gallops. PULMONARY: Chest is clear to auscultation, no wheezing or crackles. patient has chest wall deformity because of his multiple chest surgeries post valve replacem ent which was complicated and was subsequently addressed with muscle graft. ABDOMEN: Soft, nontender, nondistended, normoactive bowel sounds. No palpable organomegaly. MUSCULOSKELETAL: No joint swelling or deformity. EXTREMITIES: No cyanosis, clubbing, or pedal edema. NEUROLOGICAL: Gross neurological examination did not reveal any focal deficits. SKIN: No rashes. - Labs CBC & Chem 7: 06/02/19 05:54 06/02/19 05:54 Labs: Abnormal Lab Results - Last 24 Hours (Table) 06/02/19 06/02/19 Range/Units 05:54 05:54 RBC 4.10 L (4.30-5.90) m/uL Hgb 11.5 L (13.0-17.5) gm/dL Hct 36.6 L (39.0-53.0) % RDW 17.9 H (11.5-15.5) % Lymphocytes # 0.4 L (1.0-4.8) k/uL Glucose 123 H (74-99) mg/dL Calcium 8.1 L (8.4-10.2) mg/dL Total Bilirubin 2.6 H (0.2-1.3) mg/dL ALT 94 H (21-72) U/L Alkaline Phosphatase 207 H (38-126) U/L Total Protein 5.9 L (6.3-8.2) g/dL Albumin 2.9 L (3.5-5.0) g/dL Microbiology - Last 24 Hours (Table) 05/30/19 14:52 Blood Culture - Preliminary Blood No Growth after 72 hours 05/31/19 06:30 Blood Culture - Preliminary Blood No Growth after 48 hours 06/01/19 05:45 Blood Culture - Preliminary Blood No Growth after 24 hours Assessment and Plan Assessment: -cholelithiasis , acute cholecystitis and ascending cholangitis and sepsis jared ent may have choledocholithiasis patient is bacteremic with E. coli possible sources gallbladder. Patient will need the total 2 weeks of antibiotics after bacteremia is cleared. Status post ERCP and stone extraction. -Acute hydrops cholecystitis. Scheduled for laparoscopic cholecystectomy on -congestive heart failure chronic diastolic dysfunction:Without any acute exacerbation, patient may not require any Lasix upon discharge it appears like patient had heart failure exacerbation 7 had he had valvular dysfunction which was replaced now -acute renal failure: Secondary to prerenal azotemia as well as acute tubular necrosis improving with IV fluids and acute tubular necrosis secondary to sepsis Patient is fairly euvolemic at this time actually hypovolemic patient will be continued on IV fluids and will cut down the IV fluids because of his previous h istory of heart failure -Atrial fibrillation patient presently rate controlled anticoagulation is on hold with anticipation of possible ERCP and cholecystectomythe patient is rate controlled in sinus rhythm at this time -Hyperlipidemia -hypertension -History of thyroid cancer status post radioactive iodine treatment and patient is presently in thyroid medications which will be continued. -Status post aortic valve replacement REPLACEMENT with bovine valve and mitral valve repair -depression -since we're holding Eliquis patient may need DVT prophylaxiswith subcutaneous heparin. GI prophylaxis with Protonix Time with Patient: Greater than 30
[2019-06-03] MEDS: HEPARIN SODIUM,PORCINE 5,000 UNIT/ML 1 ML VIAL SQ SCH ×2 (00:52→07:51)
[2019-06-03] MEDS: PIPERACILLIN-TAZOBACTAM 3.375 GM in SODIUM CHLORIDE 0.9% 100 ML IVPB SCH ×2 (04:33→12:42)
[2019-06-03] MEDS: LEVOTHYROXINE 137 MCG TAB PO SCH (06:23)
[2019-06-03] MEDS: SODIUM CHLORIDE 0.9% 1,000 ML IV SCH ×2 (06:24→13:00)
[2019-06-03] MEDS: DILTIAZEM CD 120 MG CAP.ER.24H PO SCH (07:51)
[2019-06-03] MEDS: SODIUM BICARBONATE TAB 650 MG TAB PO SCH (07:51)
[2019-06-03] MEDS: VENLAFAXINE HCL ER 75 MG CAP PO SCH (07:51)
[2019-06-03] MEDS: PANTOPRAZOLE 40 MG/10 ML VIAL IVP SCH (07:51)
[2019-06-03] MEDS: TAMSULOSIN 0.4 MG CAP.ER.24H PO SCH (07:52)
[2019-06-03] MEDS: IPRATROPIUM 0.5 MG/2.5 ML NEBU INHALATION SCH ×3 (08:19→15:40)
--- NOTE | 2019-06-03 11:46 | PN ---
PROGRESS NOTE DATE OF SERVICE: June 03, 2019. REQUESTING PHYSICIAN: Dr. Das The patient is a 74-year-old pleasant white male admitted to hospital with ascending cholangitis and gram-negative bacteremia. He underwent ERCP with CBD stone removal 3 days ago. Subsequently, he underwent gallbladder surgery 2 days ago. He is doing much better. His LFTs are gradually improving. He denies any further episodes of abdominal pain. No nausea, vomiting. No fever, chills, night sweats. PHYSICAL EXAMINATION: He appears comfortable. No apparent distress. VITAL SIGNS: Stable. Blood pressure is 117/77, pulse is 75, temperature 98.5. HEENT examination unremarkable. Conjunctivae pink. Sclerae anicteric. Oral cavity no lesions. NECK: No JVD or lymph node enlargement. CHEST: Clear to auscultation. HEART: Regular rate and rhythm. ABDOMEN: Soft. Bowel sounds are positive. Slightly distended. EXTREMITIES: No pedal edema. SKIN no rashes. NEUROLOGIC: Alert and oriented x3. No focal deficits. LABS: From yesterday, T-bilirubin down to 2.6, ALT and AST 94 and 207 respectively. IMPRESSION: Ascending cholangitis with gram-negative bacteremia secondary to CBD stones status post ERCP with CBD stone removal. The patient is status post gallbladder surgery 2 days ago, presently on broad-spectrum antibiotics, doing extremely well. RECOMMENDATIONS: 1. Regular diet. 2. Continue broad-spectrum antibiotics. 3. Will sign off at this time. Thank you for this consultation. MMODL / IJN: [id number] /
[2019-06-03 11:51] VITALS: BP 125/78; TEMP 98.4
--- NOTE | 2019-06-03 15:35 | P.PN ---
Subjective Progress Note Date: 06/02/19 CHIEF COMPLAINT: Acute hydrops cholecystitis with cholangitis HISTORY OF PRESENT ILLNESS: The patient is a 76-year-old male postop day 1 status post cholecystectomy for acute hydrops purulent cholecystitis and cholangitis. He feels wonderful today. He is tolerating diet. No further ports of atypical chest pain. ROS: No reports of nausea and vomiting. No fevers or chills. No new chest pain. No productive sputum PHYSICAL EXAM: VITAL SIGNS: Reviewed CONSTITUTIONAL: Well developed and in no acute distress. EYES: Extraocular movements grossly intact. HEAD, EARS, NOSE, THROAT: Moist buccal mucosa. Head is atraumatic, normocephalic. Hears conversational speech. No nasal drainage. NECK: Supple. No thyroidomegaly. RESPIRATORY: Non-labored respirations and equal bilateral excursions. CARDIOVASCULAR: Palpable 2+ radial pulses. ABDOMEN: Incisions clean dry and intact. Soft. No peritonitis. MUSCULOSKELETAL: No gross deformity of the lower extremities noted. No clubbing. No cyanosis. SKIN: Good skin turgor. Well perfused. NEUROLOGIC: Cranial nerves I through XII grossly intact. No focal or lateralizing signs. PSYCH: Appropriate affect. Alert and oriented to person, place and time. CLINICAL LABS: White blood cell count normal ASSESSMENT: 1. Acute hydrops cholecystitis with ascending cholangitis PLAN: 1. Monitor LFTs 2. May discharge home once tolerating diet tomorrow. Objective - Vital Signs Vital signs: Vital Signs Temp 98.4 F 06/03/19 11:48 Pulse 75 06/03/19 11:48 Resp 18 06/03/19 11:48 BP 125/78 06/03/19 11:48 Pulse Ox 95 06/03/19 11:48 Intake & Output 06/02/19 06/03/19 06/03/19 18:59 06:59 18:59 Intake Total 840 420 Output Total 600 300 Balance 840 -600 120 Weight 99.1 kg Intake: Oral 840 420 Output: Urine 600 300 Straight 600 Other: Voiding Method Urinal Urinal Urinal # Voids 0 - Labs CBC & Chem 7: 06/02/19 05:54 06/02/19 05:54 Labs: Microbiology - Last 24 Hours (Table) 05/31/19 06:30 Blood Culture - Preliminary Blood No Growth after 72 hours 06/01/19 05:45 Blood Culture - Preliminary Blood No Growth after 48 hours 05/30/19 14:52 Blood Culture - Preliminary Blood No Growth after 72 hours Assessment and Plan (1) Acute cholecystitis due to biliary calculus Current Visit: Yes Status: Acute Code(s): K80.00 - CALCULUS OF GALLBLADDER W ACUTE CHOLECYST W/O OBSTRUCTION SNOMED Code(s): 07667718467659 (2) Ascending cholangitis Current Visit: Yes Status: Acute Code(s): K83.09 - OTHER CHOLANGITIS SNOMED Code(s): 73516471 (3) Choledocholithiasis with acute cholecystitis with obstruction Current Visit: Yes Status: Acute Code(s): K80.43 - CALCULUS OF BILE DUCT W ACUTE CHOLECYSTITIS WITH OBSTRUCTION SNOMED Code(s): 44195806
--- NOTE | 2019-06-03 15:37 | P.PN ---
Subjective Progress Note Date: 06/03/19 CHIEF COMPLAINT: Acute hydrops cholecystitis with cholangitis HISTORY OF PRESENT ILLNESS: The patient is a 76-year-old male postop day 2 status post cholecystectomy for acute hydrops purulent cholecystitis and cholangitis. He tolerated meatloaf and gravy. No reports of abdominal pain. Family is at bedside. Hemoglobin has been stable for over 24-48 hours. ROS: No reports of nausea and vomiting. No fevers or chills. No new chest pain. No productive sputum PHYSICAL EXAM: VITAL SIGNS: Reviewed CONSTITUTIONAL: Well developed and in no acute distress. EYES: Extraocular movements grossly intact. HEAD, EARS, NOSE, THROAT: Moist buccal mucosa. Head is atraumatic, normocephalic. Hears conversational speech. No nasal drainage. NECK: Supple. No thyroidomegaly. RESPIRATORY: Non-labored respirations and equal bilateral excursions. CARDIOVASCULAR: Palpable 2+ radial pulses. ABDOMEN: Incisions clean dry and intact. Soft. No peritonitis. MUSCULOSKELETAL: No gross deformity of the lower extremities noted. No clubbing. No cyanosis. SKIN: Good skin turgor. Well perfused. NEUROLOGIC: Cranial nerves I through XII grossly intact. No focal or lateralizing signs. PSYCH: Appropriate affect. Alert and oriented to person, place and time. CLINICAL LABS: White blood cell count normal ASSESSMENT: 1. Acute hydrops cholecystitis with ascending cholangitis PLAN: 1. October restart Eliquis 2. Patient stable for discharge Objective - Vital Signs Vital signs: Vital Signs Temp 98.4 F 06/03/19 11:48 Pulse 75 06/03/19 11:48 Resp 18 06/03/19 11:48 BP 125/78 06/03/19 11:48 Pulse Ox 95 06/03/19 11:48 Intake & Output 06/02/19 06/03/19 06/03/19 18:59 06:59 18:59 Intake Total 840 420 Output Total 600 300 Balance 840 -600 120 Weight 99.1 kg Intake: Oral 840 420 Output: Urine 600 300 Straight 600 Other: Voiding Method Urinal Urinal Urinal # Voids 0 - Labs CBC & Chem 7: 06/02/19 05:54 06/02/19 05:54 Labs: Microbiology - Last 24 Hours (Table) 05/31/19 06:30 Blood Culture - Preliminary Blood No Growth after 72 hours 06/01/19 05:45 Blood Culture - Preliminary Blood No Growth after 48 hours 05/30/19 14:52 Blood Culture - Preliminary Blood No Growth after 72 hours Assessment and Plan (1) Acute cholecystitis due to biliary calculus Current Visit: Yes Status: Acute Code(s): K80.00 - CALCULUS OF GALLBLADDER W ACUTE CHOLECYST W/O OBSTRUCTION SNOMED Code(s): 37688287179157 (2) Ascending cholangitis Current Visit: Yes Status: Acute Code(s): K83.09 - OTHER CHOLANGITIS SNOMED Code(s): 06750186 (3) Choledocholithiasis with acute cholecystitis with obstruction Current Visit: Yes Status: Acute Code(s): K80.43 - CALCULUS OF BILE DUCT W ACUTE CHOLECYSTITIS WITH OBSTRUCTION SNOMED Code(s): 15793512
[2019-06-03 15:41] VITALS: PULSE 80
== END 2019-06-03 16:56 | disposition home or self-care (01) | DRG 853 ==
LOC: EC 22:09 → 3NMEDONC 05-30 01:20 → 3SCARD 05-30 06:00
PROVIDERS: ADMIT Internal Medicine; ATTEND Internal Medicine
PROC: 0FC98ZZ Extirpation of Matter from Common Bile Duct, Via Natural or Artificial Opening Endoscopic (ICD-10-PCS; 2019-05-31 08:05)
PROC: BF131ZZ Fluoroscopy of Gallbladder and Bile Ducts using Low Osmolar Contrast (ICD-10-PCS; 2019-05-31 08:05)
PROC: 8E0W4CZ Robotic Assisted Procedure of Trunk Region, Percutaneous Endoscopic Approach (ICD-10-PCS; principal; 2019-06-01 08:55)
PROC: 0FT44ZZ Resection of Gallbladder, Percutaneous Endoscopic Approach (ICD-10-PCS; principal; 2019-06-01 08:55)
DX: A41.51 Sepsis due to Escherichia coli [E. coli] (principal); R65.21 Severe sepsis with septic shock; K80.67 Calculus of gallbladder and bile duct with acute and chronic cholecystitis with obstruction; N17.0 Acute kidney failure with tubular necrosis; E87.2 Acidosis; K82.1 Hydrops of gallbladder; I13.0 Hypertensive heart and chronic kidney disease with heart failure and stage 1 through stage 4 chronic kidney disease, or unspecified chronic kidney disease; I48.20 Chronic atrial fibrillation, unspecified; I50.32 Chronic diastolic (congestive) heart failure; E11.22 Type 2 diabetes mellitus with diabetic chronic kidney disease; E66.09 Other obesity due to excess calories; E78.5 Hyperlipidemia, unspecified; E86.1 Hypovolemia; E89.0 Postprocedural hypothyroidism; F03.90 Unspecified dementia, unspecified severity, without behavioral disturbance, psychotic disturbance, mood disturbance, and anxiety; F32.9 Major depressive disorder, single episode, unspecified; I08.0 Rheumatic disorders of both mitral and aortic valves; I25.10 Atherosclerotic heart disease of native coronary artery without angina pectoris; I25.5 Ischemic cardiomyopathy; I48.0 Paroxysmal atrial fibrillation; J44.9 Chronic obstructive pulmonary disease, unspecified; K43.2 Incisional hernia without obstruction or gangrene; N18.9 Chronic kidney disease, unspecified; Z68.32 Body mass index [BMI] 32.0-32.9, adult; Z79.01 Long term (current) use of anticoagulants; Z79.82 Long term (current) use of aspirin; Z79.890 Hormone replacement therapy; Z79.899 Other long term (current) drug therapy; Z80.0 Family history of malignant neoplasm of digestive organs; Z82.49 Family history of ischemic heart disease and other diseases of the circulatory system; Z85.850 Personal history of malignant neoplasm of thyroid; Z86.711 Personal history of pulmonary embolism; Z86.718 Personal history of other venous thrombosis and embolism; Z87.891 Personal history of nicotine dependence; Z95.1 Presence of aortocoronary bypass graft; Z95.3 Presence of xenogenic heart valve; Z96.652 Presence of left artificial knee joint; Z98.42 Cataract extraction status, left eye; Z98.41 Cataract extraction status, right eye
CPT/HCPCS: 36415; 43262; 43264; 71045; 71046; 74176; 74328; 76705; 80053; 81001; 82550; 83605; 83735; 85025; 85610; 85730; 87040; 87077; 87086; 87186; 87502; 88304; 93005; 93306; 94640; 96360; 96361; 99285

== ENCOUNTER → 2020-05-05 | Outpatient (CLI) | payer MEDICARE, OTHER ==
--- NOTE | 2020-05-05 11:08 | MR ---
EXAMINATION TYPE: MR brain wo/w con DATE OF EXAM: 05/05/2020 COMPARISON: MR brain 03/28/2018 HISTORY: Thyroid cancer; depression; dementia TECHNIQUE: Multiplanar, multisequence images of the brain and brainstem is performed without and with IV contras t, utilizing 10 mL intravenous Gadavist . FINDINGS: Diffusion weighted images demonstrate no evidence of a recent infarct or other diffusion ab normality. There is no extra-axial fluid collection or significant interval change in diffuse white matter signal abnormality involving the obed, periventricular, subcortical, pericallosal and deep whi te matter. The ventricular system and cisternal spaces are normal in size and appearance. The brain volume is age appropriate. Midline structures demonstrate normal morphology. The craniocervical junction appears within normal limits. Artifact is noted especially in the post contrast images. Post contrast images demonstrate n o abnormal enhancement. The dural venous sinuses appear patent. The visualized sinuses are clear and the globes are intact. Improvement in the signal in the mastoid air cells on the left, there is minim al residual T2 hyperintensity. IMPRESSION: Stable exam. Nonspecific white matter demyelination. Age-related atrophy.
--- NOTE | 2020-05-05 15:52 | EEG ---
ELECTROENCEPHALOGRAM REPORT DATE OF SERVICE: 05/05/2020 PREAMBLE: This is a 75-year-old male who was admitted to the hospital for valve replacement. The patient has been diagnosed with short-term memory loss, possible dementia. EEG FINDINGS: This is a 21 channel routine EEG recording in a patient utilizing 10-20 international system with referential and bipolar montages. Background consists of well developed, well regulated, moderate voltage activity around 10 hertz alpha. Some low- voltage fast frequency beta activity was also seen, suggestive of medication effect. Frequent myogenic and some sweat artifact was seen during the study. Different stages of sleep were not seen. Photic driving response was not seen. No focal or generalized epileptiform activity was seen. EKG channel showed no arrhythmia. IMPRESSION: This is a normal awake EEG. No focal, lateralized, or epileptiform activity was seen. MMAMIRAH / REGGIEN: [id number] / [id number]
== END | disposition home or self-care (01) ==
LOC: NEUROMAIN 07:56
PROVIDERS: ATTEND Psychiatry & Neurology Neurology
DX: F03.90 Unspecified dementia, unspecified severity, without behavioral disturbance, psychotic disturbance, mood disturbance, and anxiety (principal); F32.9 Major depressive disorder, single episode, unspecified; C73 Malignant neoplasm of thyroid gland; E78.00 Pure hypercholesterolemia, unspecified
CPT/HCPCS: 95816; 70553; A9585

== ENCOUNTER → 2020-09-25 | Outpatient (CLI) | payer MEDICARE, OTHER ==
[2020-09-25 20:05] LABS: African American GFR (CKD) 41.2 (60.0-200.0); Anion Gap 11.5 mmol/L (4.00-12.00); BUN/Creat Ratio 16.67 Ratio (12.00-20.00); Calcium 8.3 mg/dL (8.7-10.3); Carbon Dioxide 32.5 mmol/L (21.6-31.8); Non-African American GFR(CKD) 35.5 (60.0-200.0); Potassium 3.8 mmol/L (3.5-5.5)
== END | disposition home or self-care (01) ==
LOC: LABWHC1 10:07
PROVIDERS: ATTEND Internal Medicine
DX: I12.9 Hypertensive chronic kidney disease with stage 1 through stage 4 chronic kidney disease, or unspecified chronic kidney disease (principal); N18.31 Chronic kidney disease, stage 3a; I50.32 Chronic diastolic (congestive) heart failure
CPT/HCPCS: 36415; 80048

== ENCOUNTER 2020-12-01 12:56 | Inpatient (IN) | payer MEDICARE, OTHER ==
--- NOTE | 2020-12-01 13:23 | ED ---
General Adult HPI - General Chief complaint: Neuro Symptoms/Deficit Stated complaint: Diarrhea/slurred speech/confusion/shaking Time Seen by Provider: 12/01/20 13:14 Source: patient Mode of arrival: ambulatory Limitations: no limitations - History of Present Illness Initial comments: Jn 75-year-old gentleman who presents to the emergency department today with his for evaluation of persistent diarrhea and change in mental status. Patient was seen by his primary care last week for persistent diarrhea, he had a stool sample test done which the has not seen the results of and was prescribed antidiarrheals which resolved his diarrhea. He has not taken any antidiarrheal since Tuesday. This morning the patient remained in bed rather parker n getting up 8 AM which he usually does, when his checked on him he had had diarrhea while in bed though he denied having diarrhea. He seemed to be weak and confused. This prompted his to contact his primary care who advised to come to the ER for evaluation. - Related Data Home Medications Medication Instructions Recorded Confirmed Apixaban [Eliquis] 5 mg PO BID 05/30/19 12/01/20 Amiodarone [Cordarone] 100 mg PO DAILY 12/01/20 12/01/20 Atorvastatin [Lipitor] 10 mg PO HS 12/01/20 12/01/20 Diltiazem HCl [Cartia Xt] 120 mg PO DAILY 12/01/20 12/01/20 Doxycycline Hyclate 20mg Tab 1 tab PO BID 12/01/20 12/01/20 Furosemide [Lasix] 40 mg PO BID 12/01/20 12/01/20 Levothyroxine Sodium [Synthroid] 175 mcg PO DAILY 12/01/20 12/01/20 Metoprolol Tartrate [Lopressor] 150 mg PO BID 12/01/20 12/01/20 Umeclidinium Brm/Vilanterol Tr 1 puff INHALATION RT-BID 12/01/20 12/01/20 [Anoro Ellipta 62.5-25 Mcg INH] lisinopriL [Zestril] 2.5 mg PO DAILY 12/01/20 12/01/20 predniSONE See Taper PO DIRECTED 12/01/20 12/01/20 Allergies Allergy/AdvReac Type Severity Reaction Status Date / Time No Known Allergies Allergy Verified 12/01/20 16:55 Review of Systems ROS Statement: Those systems with pertinent positive or pertinent negative responses have been documented in the HPI. ROS Other: All systems not noted in ROS Statement are negative. Past Medical History Past Medical History: Atrial Fibrillation, Cancer, Heart Failure, Deep Vein Thrombosis (DVT), Hyperlipidemia, Hypertension, Osteoarthritis (OA), Pulmonary Embolus (PE), Thyroid Disorder, Vascular Disorder Additional Past Medical History / Comment(s): THYROID CANCER with surgery/radio active tablets, bilateral lower leg cellulitis 2015, varicose veins, past DVTs and PEs, short term memory problems, episodes of hypotension, hiatal hernia, gastritis. Insomnia. Depression. Atrial fibrillation. History of Any Multi-Drug Resistant Organisms: None Reported Past Surgical History: Cardiac Valve Replacement, Heart Catheterization, Joint Replacement Additional Past Surgical History / Comment(s): Thyroidectomy, total left knee replacement, JAYDE/CVN, 09/29/16 aortic valve replacement with bovine valve and mitral valve repair, mediastinal lymph node biopsy, sternal chest wound debridement/ wound vac/sternotomy and muscle straps, COLONOSCOPY, EGD, bilateral cataract removals and L eye was injured requirin surgery to remove blood. Past Anesthesia/Blood Transfusion Reactions: No Reported Reaction Additional Past Anesthesia/Blood Transfusion Reaction / Comment(s): Pt has received blood in past without reaction. Past Psychological History: Depression Smoking Status: Never smoker Past Alcohol Use History: Rare Past Drug Use History: None Reported - Past Family History Father Family Medical History: Coronary Artery Disease (CAD) Additional Family Medical History / Comment(s): Father at the age pf 76yrs from heart problems. Mother Family Medical History: Vascular Disorder Additional Family Medical History / Comment(s): Mother had varicosities. She lived to be 92 yrs old. Brother(s) Family Medical History: Cancer Additional Family Medical History / Comment(s): LIVER CA. BLOOD CLOT. General Exam - General Exam Comments Initial Comments: Physical Exam GENERAL: Chronically ill appearing Weak, 2 person assist from wheelchair HENT: Normocephalic, Atraumatic. EYES: PERRL, EOMI PULMONARY: Unlabored respirations. CARDIOVASCULAR: RRR ABDOMEN: Obese Non-tender SKIN: Skin is clear with no lesions or rashes and otherwise unremarkable. : Normal external genitalia NEUROLOGIC: Alert and oriented to person, aware he is in the hospital MUSCULOSKELETAL: Generalized weakness PSYCHIATRIC: Confused Limitations: no limitations Course Vital Signs 12/01/20 12/01/20 12/01/20 13:00 15:04 16:28 Temperature 99.1 F Pulse Rate 95 80 75 Respiratory 16 16 22 Rate Blood Pressure 98/55 104/70 107/82 O2 Sat by Pulse 92 L 99 92 L Oximetry 12/01/20 18:39 Temperature Pulse Rate 71 Respiratory 20 Rate Blood Pressure 110/79 O2 Sat by Pulse Oximetry EKG Findings - EKG Comments: EKG Findings:: EKG was obtained at 1318, rate is 90 rhythm is sinus with first- degree AV block and right bundle branch block, no acute ST elevations or depressions no evidence of ischemia or infarction. Medical Decision Making - Medical Decision Making She was seen and evaluated history is obtained from the at bedside Patient with persistent diarrhea, confusion generalized weakness is concerned that he is deteriorating Labs with leukocytosis, dehydration Concern for possible C. diff, patient care was discussed with Dr. Page who accepts the admission - Lab Data Result diagrams: 12/01/20 13:18 12/01/20 13:18 Lab Results 12/01/20 12/01/20 12/01/20 Range/Units 13:18 13:18 13:18 WBC 21.0 H (3.8-10.6) k/uL RBC 4.36 (4.30-5.90) m/uL Hgb 13.4 (13.0-17.5) gm/dL Hct 40.5 (39.0-53.0) % MCV 92.8 (80.0-100.0) fL MCH 30.8 (25.0-35.0) pg MCHC 33.2 (31.0-37.0) g/dL RDW 14.5 (11.5-15.5) % Plt Count 177 (150-450) k/uL MPV 7.6 Neutrophils % 94 % Lymphocytes % 1 % Monocytes % 4 % Eosinophils % 1 % Basophils % 0 % Neutrophils # 19.8 H (1.3-7.7) k/uL Lymphocytes # 0.3 L (1.0-4.8) k/uL Monocytes # 0.8 (0-1.0) k/uL Eosinophils # 0.1 (0-0.7) k/uL Basophils # 0.0 (0-0.2) k/uL PT 12.0 (9.0-12.0) sec INR 1.2 H (<1.2) VBG pH (7.31-7.41) VBG pCO2 (37-51) mmHg VBG HCO3 (24-28) mmol/L Sodium 139 (137-145) mmol/L Potassium 4.2 (3.5-5.1) mmol/L Chloride 104 (98-107) mmol/L Carbon Dioxide 26 (22-30) mmol/L Anion Gap 9 mmol/L BUN 63 H (9-20) mg/dL Creatinine 2.13 H (0.66-1.25) mg/dL Est GFR (CKD-EPI)AfAm 34 (>60 ml/min/1.73 sqM) Est GFR (CKD-EPI)NonAf 29 (>60 ml/min/1.73 sqM) Glucose 138 H (74-99) mg/dL Lactic Ac Sepsis Rflx Plasma Lactic Acid Samir (0.7-2.0) mmol/L Calcium 8.1 L (8.4-10.2) mg/dL Magnesium 2.0 (1.6-2.3) mg/dL Total Bilirubin 0.7 (0.2-1.3) mg/dL AST 34 (17-59) U/L ALT 32 (4-49) U/L Alkaline Phosphatase 89 (38-126) U/L Total Protein 6.5 (6.3-8.2) g/dL Albumin 3.4 L (3.5-5.0) g/dL Urine Color Urine Appearance (Clear) Urine pH (5.0-8.0) Ur Specific [place] (1.001-1.035) Urine Protein (Negative) Urine Glucose (UA) (Negative) Urine Ketones (Negative) Urine Blood (Negative) Urine Nitrite (Negative) Urine Bilirubin (Negative) Urine Urobilinogen (<2.0) mg/dL Ur Leukocyte Esterase (Negative) 12/01/20 12/01/20 12/01/20 Range/Units 13:18 13:18 13:21 WBC (3.8-10.6) k/uL RBC (4.30-5.90) m/uL Hgb (13.0-17.5) gm/dL Hct (39.0-53.0) % MCV (80.0-100.0) fL MCH (25.0-35.0) pg MCHC (31.0-37.0) g/dL RDW (11.5-15.5) % Plt Count (150-450) k/uL MPV Neutrophils % % Lymphocytes % % Monocytes % % Eosinophils % % Basophils % % Neutrophils # (1.3-7.7) k/uL Lymphocytes # (1.0-4.8) k/uL Monocytes # (0-1.0) k/uL Eosinophils # (0-0.7) k/uL Basophils # (0-0.2) k/uL PT (9.0-12.0) sec INR (<1.2) VBG pH 7.49 H (7.31-7.41) VBG pCO2 32 L (37-51) mmHg VBG HCO3 24 (24-28) mmol/L Sodium (137-145) mmol/L Potassium (3.5-5.1) mmol/L Chloride (98-107) mmol/L Carbon Dioxide (22-30) mmol/L Anion Gap mmol/L BUN (9-20) mg/dL Creatinine (0.66-1.25) mg/dL Est GFR (CKD-EPI)AfAm (>60 ml/min/1.73 sqM) Est GFR (CKD-EPI)NonAf (>60 ml/min/1.73 sqM) Glucose (74-99) mg/dL Lactic Ac Sepsis Rflx Plasma Lactic Acid Samir 2.4 H* (0.7-2.0) mmol/L Calcium (8.4-10.2) mg/dL Magnesium (1.6-2.3) mg/dL Total Bilirubin (0.2-1.3) mg/dL AST (17-59) U/L ALT (4-49) U/L Alkaline Phosphatase (38-126) U/L Total Protein (6.3-8.2) g/dL Albumin (3.5-5.0) g/dL Urine Color Yellow Urine Appearance Clear (Clear) Urine pH 5.5 (5.0-8.0) Ur Specific [place] 1.014 (1.001-1.035) Urine Protein Negative (Negative) Urine Glucose (UA) Negative (Negative) Urine Ketones Negative (Negative) Urine Blood Negative (Negative) Urine Nitrite Negative (Negative) Urine Bilirubin Negative (Negative) Urine Urobilinogen <2.0 (<2.0) mg/dL Ur Leukocyte Esterase Negative (Negative) 12/01/20 Range/Units 13:57 WBC (3.8-10.6) k/uL RBC (4.30-5.90) m/uL Hgb (13.0-17.5) gm/dL Hct (39.0-53.0) % MCV (80.0-100.0) fL MCH (25.0-35.0) pg MCHC (31.0-37.0) g/dL RDW (11.5-15.5) % Plt Count (150-450) k/uL MPV Neutrophils % % Lymphocytes % % Monocytes % % Eosinophils % % Basophils % % Neutrophils # (1.3-7.7) k/uL Lymphocytes # (1.0-4.8) k/uL Monocytes # (0-1.0) k/uL Eosinophils # (0-0.7) k/uL Basophils # (0-0.2) k/uL PT (9.0-12.0) sec INR (<1.2) VBG pH (7.31-7.41) VBG pCO2 (37-51) mmHg VBG HCO3 (24-28) mmol/L Sodium (137-145) mmol/L Potassium (3.5-5.1) mmol/L Chloride (98-107) mmol/L Carbon Dioxide (22-30) mmol/L Anion Gap mmol/L BUN (9-20) mg/dL Creatinine (0.66-1.25) mg/dL Est GFR (CKD-EPI)AfAm (>60 ml/min/1.73 sqM) Est GFR (CKD-EPI)NonAf (>60 ml/min/1.73 sqM) Glucose (74-99) mg/dL Lactic Ac Sepsis Rflx Y Plasma Lactic Acid Samir (0.7-2.0) mmol/L Calcium (8.4-10.2) mg/dL Magnesium (1.6-2.3) mg/dL Total Bilirubin (0.2-1.3) mg/dL AST (17-59) U/L ALT (4-49) U/L Alkaline Phosphatase (38-126) U/L Total Protein (6.3-8.2) g/dL Albumin (3.5-5.0) g/dL Urine Color Urine Appearance (Clear) Urine pH (5.0-8.0) Ur Specific [place] (1.001-1.035) Urine Protein (Negative) Urine Glucose (UA) (Negative) Urine Ketones (Negative) Urine Blood (Negative) Urine Nitrite (Negative) Urine Bilirubin (Negative) Urine Urobilinogen (<2.0) mg/dL Ur Leukocyte Esterase (Negative) Disposition Clinical Impression: Diarrhea, GORDO (acute kidney injury), Lactic acid acidosis, Leukocytosis, Congestive heart failure due to valvular disease, Hx of CABG Disposition: ADMITTED IP TO THIS HOSP Condition: Serious
[2020-12-01] MEDS: SODIUM CHLORIDE 0.9% 500 ML 500 ML IV SCH ×2 (13:27→14:14)
[2020-12-01 13:35] LABS: Basophils % (A) 0 %; Eosinophils # (A) 0.1 k/uL (0-0.7); Eosinophils % (A) 1 %; HCT 40.5 % (39.0-53.0); HGB 13.4 gm/dL (13.0-17.5); Lymphocytes # (A) 0.3 k/uL (1.0-4.8); Lymphocytes % (A) 1 %; MCH 30.8 pg (25.0-35.0); MCHC 33.2 g/dL (31.0-37.0); MCV 92.8 fL (80.0-100.0); Mean Platelet Volume 7.6; Monocytes # (A) 0.8 k/uL (0-1.0); Monocytes % (A) 4 %; Neutrophils # (A) 19.8 k/uL (1.3-7.7); Neutrophils % (A) 94 %; Platelet Count 177 k/uL (150-450); RBC 4.36 m/uL (4.30-5.90); RDW 14.5 % (11.5-15.5)
--- NOTE | 2020-12-01 13:42 | XR ---
EXAMINATION TYPE: XR chest 1V portable DATE OF EXAM: 12/01/2020 COMPARISON: Chest x-ray May 30, 2019 HISTORY: Shortness of breath TECHNIQUE: Single AP portable follow-up upright view of the chest is obtained. FINDINGS: Degenerative change bilateral glenohumeral joints. Persistent cardiomegaly with atheroscle rotic and ectatic aorta. Diminished inspiration with central vascular congestion. No new focal airspa ce opacity, pleural effusion, or pneumothorax seen. Left atrial appendage clip redemonstrated. IMPRESSION: Correlate for CHF exacerbation as there is cardiomegaly with new central vascular conges tion. Findings may be exaggerated by poor inspiration.
[2020-12-01 13:50] LABS: Albumin 3.4 g/dL (3.5-5.0); Calcium 8.1 mg/dL (8.4-10.2); Potassium 4.2 mmol/L (3.5-5.1); Total Bilirubin 0.7 mg/dL (0.2-1.3); Total Protein 6.5 g/dL (6.3-8.2)
[2020-12-01 13:51] LABS: VBG PH 7.49 (7.31-7.41)
[2020-12-01 13:53] LABS: INR 1.2 (<1.2)
[2020-12-01] MEDS ORDERED: SODIUM CHLORIDE 0.9% 1,000 ML IV ONE (14:38)
[2020-12-01 14:49] LABS: Appearance,Urine Clear (Clear); Bilirubin,Urine Negative (Negative); Blood,Urine Negative (Negative); Color,Urine Yellow; Glucose,Urine (UA) Negative (Negative); Ketones,Urine Negative (Negative); Leukocyte Esterase,Urine Negative (Negative); Nitrite,Urine Negative (Negative); PH, Urine 5.5 (5.0-8.0); Protein,Urine Negative (Negative); Specific Gravity,Urine 1.014 (1.001-1.035); Urobilinogen,Urine <2.0 mg/dL (<2.0)
[2020-12-01] MEDS ORDERED: IOPAMIDOL CONTRAST (ORAL USE) VIAL PO PRN (15:54)
[2020-12-01] MEDS ORDERED: NALOXONE 0.4 MG/ML 1 ML VIAL IV PRN (15:56)
[2020-12-01] MEDS ORDERED: SODIUM CHLORIDE 0.9% 1,000 ML IV SCH (16:00)
--- NOTE | 2020-12-01 18:25 | CT ---
EXAMINATION TYPE: CT abdomen pelvis wo con DATE OF EXAM: 12/01/2020 COMPARISON: 05/29/2019 HISTORY: Abdominal pain, diarrhea, leukocytosis. CT DLP: 1423.4 mGycm Automated exposure control for dose reduction was used. Images obtained from the diaphragm to the floor the pelvis with oral contrast only. FINDINGS: There is small right pleural effusion. There is some infiltrate and atelectasis at the lung bases. He art is borderline enlarged. There is no pericardial effusion. There is cardiac surgery noted. Liver spleen stomach appear intact. Bile ducts are nondilated. Gallbladder appears absent. There is n o pancreatic mass. There is no adrenal mass. Kidneys have normal size. There is no hydronephrosis. Ureters are not dilat ed. There is no retroperitoneal adenopathy. Bladder distends smoothly. There is no inguinal hernia. T here is atrophy of right side abdominal wall musculature. There is right-sided abdominal wall ventral hernia that contains omental fat and measures 3.5 x 2 cm. This hernia is contiguous with periumbilic al hernia containing omental fat and measures approximately 7 cm. There is no mesenteric edema. There is no ascites or free air. There is no bowel obstruction. There i s a second-degree L5-S1 spondylolisthesis with bilateral L5 spondylolysis. There is degenerative disc changes in the lumbar spine. The bony pelvis is intact. The hip joints are intact. IMPRESSION: There is some basilar pulmonary infiltrate and atelectasis that is more on the right side and not sig nificantly different than old CT scan. Abdominal wall ventral hernia slightly increased compared to old exam. No bowel obstruction. No acute abnormality within the abdomen pelvis. Changes in the lumbar spine are stable compared to old exam.
[2020-12-01] MEDS: METOPROLOL TARTRATE 50 MG TAB PO SCH (20:19)
[2020-12-01] MEDS: APIXABAN 2.5 MG TABLET PO SCH (20:19)
[2020-12-01] MEDS: FUROSEMIDE 40 MG TAB PO SCH (20:19)
[2020-12-01] MEDS: SODIUM CHLORIDE 0.9% 1,000 ML IV SCH (20:19)
[2020-12-01] MEDS: ATORVASTATIN 10 MG TAB PO SCH (20:19)
[2020-12-01 21:16] LABS: C Reactive Protein 5.4 mg/dL (<1.0)
--- NOTE | 2020-12-01 21:28 | HP ---
HISTORY AND PHYSICAL DATE OF SERVICE: 12/01/2020. CHIEF COMPLAINT: Diarrhea. HISTORY OF PRESENT ILLNESS: This 75-year-old gentleman who was admitted for evaluation of persistent diarrhea and change in mental status. The patient was found to be soiled today and the patient also had some stool workup in the outpatient office and the results are not available at this time. The patient also has some minimal abdominal distention. Otherwise, there is no history of fever, rigors, chills at this time. Abdominal and pelvis CT scan did not show acute abnormality. Stool for c dif also negative at this Lactic acid found to be 2.4. Creatinine is 2.13 indicating acute on chronic renal failure. Covid19 is negative. White count is elevated to 21, mostly neutrophils, patient mild lymphopenia. There is no history of fever, rigors, chills at this time. PAST MEDICAL HISTORY: History of atrial fibrillation, history of CHF, history of DVT, hypertension. History DJD and pulmonary embolism. History of thyroid cancer. MEDICATIONS: Doxycycline, prednisone, Zestril, Lopressor, Lasix Eliquis, cardia XT, Lipitor, Cordarone, Ellipta and Synthroid. ALLERGIES: None. FAMILY HISTORY: History of liver cancer and DVT. SOCIAL HISTORY: Previous history of smoking. Occasional alcohol intake. REVIEW OF SYSTEMS: ENT: Diminished hearing and vision. CARDIOVASCULAR: No angina or palpitations. RESPIRATORY: As mentioned earlier. GI: No nausea. : No dysuria. NERVOUS SYSTEM: No numbness or weakness. ALLERGY/IMMUNOLOGY: No asthma or hay fever. MUSCULOSKELETAL: As mentioned earlier. ENDOCRINE: As mentioned earlier. CONSTITUTIONAL: As mentioned earlier. DERMATOLOGY: Negative. PSYCH: As mentioned earlier. PHYSICAL EXAM: Patient is alert, oriented x3. Pulse 71, blood pressure 110/70, respirations 20, temp 99.1, pulse ox 98% on 2 L. HEENT: Conjunctivae normal. NECK: No JVD. CARDIOVASCULAR: Normal S1, S2. RESPIRATORY: Breath sounds diminished at the bases. No rhonchi. No crackles. ABDOMEN: Soft, mild diffuse discomfort. No guarding. No rigidity. No mass palpable. No ascites. Bowel sounds diminished. LEGS: No edema, no swelling. NERVOUS SYSTEM: Higher functions as mentioned earlier. Moves all 4 limbs. No focal motor deficits. LYMPHATICS: No skin lesions. No ulcers. JOINTS: No bony deformities. LABS: WBC 7, hemoglobin 13.4, INR 1.2. Creatinine is 2.13. ASSESSMENT: 1. Severe dehydration secondary to subacute diarrhea with acute renal failure with prerenal acute tubular necrosis. 2. Change in mental status acute metabolic acidosis secondary to dehydration. 3. Acute diarrhea of undetermined etiology. 4. Increased WBC. 5. C difficile ruled out. 6. Possible baseline chronic kidney stage 3. 7. Elevated lactic acid possibly secondary to dehydration present on admission. 8. History atrial fibrillation. 9. History of CHF. 10.History of DVT. 11.Hypertension. 12.History of DJD. 13.History of pulmonary embolism. 14.History of hypothyroidism. 15.History of thyroid cancer. 16.History of bilateral leg cellulitis. 17.History of DVT and PE. 18.Short-term memory problems. 19.History of depression. 20.History of insomnia. 21.History of cardiac valve replacement. 22.History of aortic replacement with bovine aortic valve. 23.History of mitral repair. 24.History of mediastinal lymph node biopsy. 25.History of depression. 26.Remote history of nicotine dependence. 27.Obesity with body mass of 34.7. 28.FULL CODE. RECOMMENDATIONS AND DISCUSSION: This 75-year-old gentleman who presented with multiple complex medical issues, at this time I recommend to continue the current management and symptomatic treatment. The exact etiology of diarrhea at this time not known. We will cautiously admission IV fluids. Recommend Gastroenterology consultation. Otherwise resume the home medications. CT scan as noted. The patient will require further stool studies and possible endoscopies if the symptoms are not improving. C diff is negative. Prognosis guarded. MMODL / IJN: [id number] /
[2020-12-02 05:19] LABS: Protein, Total 6.4 g/dL (6.2-8.2)
[2020-12-02] MEDS: LEVOTHYROXINE 100 MCG TAB PO SCH (06:28)
[2020-12-02] MEDS: LEVOTHYROXINE 75 MCG TAB PO SCH (06:28)
[2020-12-02] MEDS: FORMOTEROL FUMARATE 20 MCG/2 ML NEBU INHALATION SCH ×2 (07:33→19:39)
[2020-12-02] MEDS: IPRATROPIUM 0.5 MG/2.5 ML NEBU INHALATION SCH ×4 (07:33→19:42)
[2020-12-02] MEDS: APIXABAN 2.5 MG TABLET PO SCH ×2 (08:14→20:40)
[2020-12-02] MEDS: DILTIAZEM CD 120 MG CAP.ER.24H PO SCH (08:14)
[2020-12-02] MEDS: FUROSEMIDE 40 MG TAB PO SCH ×2 (08:14→18:03)
[2020-12-02] MEDS: METOPROLOL TARTRATE 50 MG TAB PO SCH ×2 (08:14→18:04)
[2020-12-02] MEDS: AMIODARONE 100 MG TAB PO SCH (08:15)
[2020-12-02 08:27] LABS: Basophils % (A) 0 %; Eosinophils % (A) 0 %; HCT 39.3 % (39.0-53.0); HGB 12.9 gm/dL (13.0-17.5); Lymphocytes # (A) 0.6 k/uL (1.0-4.8); Lymphocytes % (A) 4 %; MCH 31.3 pg (25.0-35.0); MCHC 32.8 g/dL (31.0-37.0); MCV 95.5 fL (80.0-100.0); Mean Platelet Volume 7.5; Monocytes # (A) 0.6 k/uL (0-1.0); Monocytes % (A) 4 %; Neutrophils # (A) 14.5 k/uL (1.3-7.7); Neutrophils % (A) 92 %; Platelet Count 158 k/uL (150-450); RBC 4.11 m/uL (4.30-5.90); RDW 14.7 % (11.5-15.5); WBC 15.8 k/uL (3.8-10.6)
[2020-12-02 08:56] LABS: Calcium 7.4 mg/dL (8.4-10.2); Potassium 3.8 mmol/L (3.5-5.1)
[2020-12-02] MEDS ORDERED: ACETAMINOPHEN TAB 325 MG TAB PO PRN (13:18)
[2020-12-02] MEDS: PIPERACILLIN-TAZOBACTAM 3.375 GM in SODIUM CHLORIDE 0.9% 100 ML IVPB SCH ×2 (17:41→23:29)
--- NOTE | 2020-12-02 18:10 | PN ---
PROGRESS NOTE DATE OF SERVICE: 12/02/2020 INTERVAL HISTORY: This is a 75-year-old gentleman who was admitted with diarrhea and was also running fever at this time. The patient is confused. The abdominal and pelvis CT scan did not show any acute abnormality. CT scan of the brain is not available at this time. Some bibasilar pulmonary infiltrate was noted in the CT scan. Diarrhea has improved. A chest x-ray which was reviewed personally by me showed some evidence of some congestive heart failure and new vascular congestion. The patient is being closely monitored. PAST MEDICAL HISTORY: Reviewed. REVIEW OF SYSTEMS: CARDIOVASCULAR: No angina. RESPIRATORY: As mentioned earlier. GI: As mentioned earlier. : No dysuria. NERVOUS SYSTEM: Diffusely weak. CURRENT MEDICATIONS: Reviewed include Tylenol, Cordarone, Eliquis, Lipitor, Cardizem, Perforomist, Lasix, Atrovent, Synthroid, Zestril, Lopressor, Narcan. Doses are reviewed. PHYSICAL EXAMINATION: GENERAL: Patient is alert and oriented times three. VITAL SIGNS: Pulse 58, blood pressure 78/48, respirations 20, temperature 98.4, pulse ox 94% on 2 liters. HEENT: Conjunctivae normal. Oral mucosa moist. NECK: No jugular venous distention. No carotid bruits. No lymph node enlargement. RESPIRATORY: Breath sounds diminished at the bases. A few scattered rhonchi and crackles. HEART: S1 and S2, muffled. ABDOMEN: Soft, no tenderness. No masses palpable. EXTREMITIES: No edema, no swelling. NERVOUS: No focal deficits. LAB STUDIES: WBC 15.3, hemoglobin 12.9, sodium 130, potassium 3.8, creatinine is 1.53. ASSESSMENT: 1. Severe dehydration secondary to subacute diarrhea with acute renal failure with prerenal acute tubular necrosis. 2. Fever with possible sepsis. 3. Possible pneumonia. 4. Change in mental status with acute metabolic acidosis secondary to dehydration. 5. Acute diarrhea of undetermined etiology. 6. Increased WBC. 7. C difficile ruled out. 8. Possible baseline chronic kidney disease stage 3. 9. Elevated lactic acid, possible acute dehydration present on admission. 10.History atrial fibrillation. 11.History of congestive heart failure .. 12.History of DVT. 13.Hypertension. 14.History of degenerative joint disease. 15.History of pulmonary embolus. 16.History of hypothyroidism. 17.History of thyroid cancer. 18.History of bilateral leg cellulitis. 19.History of pulmonary embolism. 20.Short-term memory problems. 21.History of depression. 22.History of insomnia. 23.History of cardiac valve replacement. 24.History of aortic replacement with bovine aortic valve. 25.History of mitral valve repair. 26.History of mediastinal lymph node biopsy. 27.History of depression. 28.Remote history of nicotine dependence. 29.Obesity with body mass index of 34.7. 30.FULL CODE. RECOMMENDATION AND DISCUSSION: In this 75-year-old gentleman who presented with multiple complex medical issues, we will monitor the patient closely. Continue the current medications, continue with symptomatic treatment. Otherwise at this time I recommend empiric antibiotics, bronchodilators. Infectious Disease evaluation. Guarded prognosis because of multiple complex medical issues. Further recommendations to follow. Repeat labs will be ordered. MMODL / IJN: [id number] /
[2020-12-02] MEDS: SODIUM CHLORIDE 0.9% 1,000 ML IV SCH ×2 (18:27→20:40)
[2020-12-02] MEDS: ATORVASTATIN 10 MG TAB PO SCH (20:39)
[2020-12-02] MEDS ORDERED: FUROSEMIDE 10 MG/ML 2 ML VIAL IV PRN (21:25)
[2020-12-02 21:41] LABS: Glucose,Whole Blood 150 mg/dL (75-99)
[2020-12-03] MEDS: LEVOTHYROXINE 75 MCG TAB PO SCH (06:25)
[2020-12-03] MEDS: LEVOTHYROXINE 100 MCG TAB PO SCH (06:25)
[2020-12-03] MEDS: IPRATROPIUM 0.5 MG/2.5 ML NEBU INHALATION SCH ×4 (08:49→20:33)
[2020-12-03] MEDS: FORMOTEROL FUMARATE 20 MCG/2 ML NEBU INHALATION SCH ×2 (08:49→20:32)
[2020-12-03] MEDS: PIPERACILLIN-TAZOBACTAM 3.375 GM in SODIUM CHLORIDE 0.9% 100 ML IVPB SCH (09:11)
[2020-12-03] MEDS: AMIODARONE 100 MG TAB PO SCH (09:12)
[2020-12-03] MEDS: DILTIAZEM CD 120 MG CAP.ER.24H PO SCH (09:12)
[2020-12-03] MEDS: FUROSEMIDE 40 MG TAB PO SCH ×2 (09:12→17:48)
[2020-12-03] MEDS: APIXABAN 2.5 MG TABLET PO SCH ×2 (09:12→20:41)
[2020-12-03] MEDS: METOPROLOL TARTRATE 50 MG TAB PO SCH ×2 (09:13→20:27)
[2020-12-03 09:22] LABS: Basophils % (A) 0 %; Eosinophils # (A) 0.1 k/uL (0-0.7); Eosinophils % (A) 1 %; Lymphocytes # (A) 0.4 k/uL (1.0-4.8); Lymphocytes % (A) 3 %; MCH 30.1 pg (25.0-35.0); MCHC 31.5 g/dL (31.0-37.0); MCV 95.6 fL (80.0-100.0); Mean Platelet Volume 7.8; Monocytes # (A) 0.4 k/uL (0-1.0); Monocytes % (A) 3 %; Neutrophils # (A) 11.7 k/uL (1.3-7.7); Neutrophils % (A) 93 %; Platelet Count 160 k/uL (150-450); RBC 3.98 m/uL (4.30-5.90); RDW 15.1 % (11.5-15.5); WBC 12.6 k/uL (3.8-10.6)
[2020-12-03 09:54] LABS: Calcium 7.1 mg/dL (8.4-10.2); Potassium 3.3 mmol/L (3.5-5.1)
[2020-12-03] MEDS: IPRATROPIUM-ALBUTEROL 3 ML NEB INHALATION PRN ×2 (12:58→20:32)
--- NOTE | 2020-12-03 13:55 | CONS ---
CONSULTATION DATE OF SERVICE: 12/03/2020 REASON FOR CONSULTATION: Fever and sepsis. HISTORY OF PRESENT ILLNESS: The patient is a 75-year-old male who presented to the ER 2 days ago on 12/01/2020 for evaluation of diarrhea and mental status changes. Apparently the patient has been treated in the outpatient setting by his primary care physician with antidiarrheal. The patient's diarrhea resolved. However, the patient did have diarrhea the day of presentation to the hospital. The patient was weak and confused. Patient's contacted the primary care physician who advised the patient to go to the ER. On arrival to the ER, the patient was afebrile, however, he did spike a fever 24 hours later on yesterday afternoon of 102.2 degrees Fahrenheit. The patient is mildly hypotensive. [place] [address] on admission down to 15.8 yesterday. The patient did have a UA that was negative. BUN and creatinine was mildly elevated. The patient did have a CT of abdomen and pelvis that was done without contrast and shows abdominal wall ventral hernia slightly decreased compared to old exam, but no obstruction. No acute abdomen within the abdominal pelvis. The patient did have blood cultures done which came back positive with gram-positive and subsequently has been finalized with Enterococcus faecalis. The patient has been treated with Zosyn. Infectious Disease was consulted for further management. At the time of evaluation this morning the patient is afebrile. The patient mentioned feeling slightly better. Denies having URI symptoms. Denies any chest pain. Some shortness of breath on exertion. He did have a cough with occasional sputum. No hemoptysis. No nausea, no vomiting. Denies any abdominal pain. No further diarrhea at this point. No urinary symptoms. REVIEW OF SYSTEMS: Positive points have been mentioned in HPI. Rest of the systems are negative. PAST MEDICAL HISTORY: Atrial fibrillation, heart failure, DVT, hyperlipidemia, hypertension, osteoarthritis, PE, hypothyroidism, history of thyroid cancer. PAST SURGICAL HISTORY: Cardiac valve replacement, heart catheterization, thyroidectomy, left knee replacement. SOCIAL HISTORY: No history of smoking. Rarely drinks. No drug use. FAMILY HISTORY: Father with history of coronary artery disease. Mother had history of venostasis ulcer. Brother with history of liver cancer and blood clot. ALLERGIES: No known drug allergies. MEDICATIONS: The patient is currently on Tylenol, DuoNeb, amiodarone, Zosyn Eliquis, Lipitor, Cardizem, Lasix, Synthroid, Zestril, Lopressor, Narcan. PHYSICAL EXAMINATION: VITAL SIGNS: Blood pressure 92/52, pulse of 73, temperature 98, he is 97% on 2 L nasal cannula. GENERAL DESCRIPTION: Patient is an elderly male lying in bed in no distress. No tachypnea or accessory muscles of respiration use. HEENT: Examination shows no pallor or scleral icterus. Oral mucous membrane is dry. NECK: Trachea central, no thyromegaly. LUNGS: Unlabored breathing, clear to auscultation anteriorly. No wheeze or crackle. HEART: S1-S2, regular rate and rhythm. ABDOMEN: Soft, no tenderness. No guarding or rigidity. No organomegaly. EXTREMITIES: No edema of the feet. SKIN: No rash or mass palpable. NEUROLOGICAL: Patient is awake, alert, oriented times two. Mood and affect normal. LABS: Hemoglobin is 12, white count of 12.6, admission white count was 21,000, BUN of 36, creatinine 1.43. Admission creatinine was 2.13. Lactic acid 2.4. Liver enzymes are normal. CT of abdomen and pelvis without contrast did not show any acute abnormality. Urine is negative. DIAGNOSTIC IMPRESSION: Patient admitted to the hospital with sepsis in this patient who did have evidence of Enterococcus faecalis bacteremia, which is usually of a urinary or gut origin. However, the patient's urine is negative. He did have GI symptoms of diarrhea. CT of abdomen and pelvis unfortunately was done without contrast and did not show any acute abnormality, however, no contrast will limit sensitivity of this testing. The patient also history heart valve replacement. In a setting of Enterococcus bacteremia endocarditis need to be considered as well. PLAN: 1. We will recheck repeat blood cultures to make sure no evidence of any persistent bacteremia that would indicate an endovascular source. 2. Discontinue Zosyn 3 grams q.6 hours. 3. We will follow on his clinical condition and investigations to further adjust medication if needed. Thank you for this consultation. Will follow this patient along with you. MMODL / IJN: [id number] /
[2020-12-03] MEDS ORDERED: Magnesium Replacement Protocol 1 EACH MISC MISCELLANE PRN (14:49)
[2020-12-03] MEDS ORDERED: Potassium Replacement Protocol 1 EACH MISC MISCELLANE PRN (14:49)
[2020-12-03 15:14] LABS: Albumin 3.21 g/dL (3.80-4.90); Gamma Globulin 1.28 g/dL (0.70-1.50)
[2020-12-03] MEDS: AMPICILLIN-SULBACTAM 3 GM in SODIUM CHLORIDE 0.9% 100 ML IVPB SCH ×2 (17:48→23:31)
[2020-12-03] MEDS: SODIUM CHLORIDE 0.9% 1,000 ML IV SCH (17:49)
--- NOTE | 2020-12-03 18:27 | PN ---
PROGRESS NOTE DATE OF SERVICE: 12/03/2020 INTERVAL HISTORY: This is a 75-year-old gentleman who was admitted with severe dehydration secondary to subacute diarrhea and acute renal failure with prerenal acute tubular necrosis, also had a fever with possible sepsis. The patient had blood cultures positive for enterococcus faecalis. ID is pending at this time. Infectious Disease following the patient closely. The patient is started on IV Unasyn at this time. The patient had previous history of multiple complex medical issues and history of previous CAD, CABG and patient also had multiple physicians in the [place] area, according to the family. No chest pain. No palpitations. PAST MEDICAL HISTORY: Reviewed. REVIEW OF SYSTEMS: CARDIOVASCULAR: No angina or palpitations. RESPIRATORY: As mentioned earlier. GI: Diarrhea is reduced. : No dysuria. NERVOUS SYSTEM: As mentioned earlier. CURRENT MEDICATIONS: Reviewed and include Tylenol, DuoNeb, Unasyn, Eliquis, Lipitor, Cardizem, Lasix, Synthroid. Doses reviewed. PHYSICAL EXAMINATION: GENERAL: Patient is alert and oriented times two. VITAL SIGNS: Pulse 71, blood pressure 105/55, respirations 18, temperature 98.1, pulse ox 96% on 2 liters. HEENT: Conjunctivae normal. Oral mucosa moist. NECK: No jugular venous distention. No carotid bruits. RESPIRATORY: Breath sounds diminished at the bases. A few scattered rhonchi, no crackles. HEART: S1 and S2, muffled. ABDOMEN: Soft, obese, no tenderness. No masses palpable. EXTREMITIES: No edema, no swelling. NERVOUS: No focal deficits. LABS: Creatinine 1.4, sodium 130, potassium 3.3 and WBC 2.6 and calcium is 7.1. ASSESSMENT: 1. Severe dehydration secondary to subacute diarrhea as well as acute renal failure with prerenal acute tubular necrosis. 2. Possible sepsis with Enterococcus faecalis. 3. Possible bibasilar pneumonia. 4. Change in mental status with acute metabolic encephalopathy secondary to dehydration. 5. Acute diarrhea of undetermined etiology. 6. Increased WBC. 7. C difficile ruled out. 8. Possible baseline chronic kidney disease stage 3. 9. Elevated lactic acid, possible acute dehydration or sepsis present on admission. 10.History atrial fibrillation. 11.History of congestive heart failure. 12.History of DVT. 13.Hypertension. 14.History of degenerative joint disease. 15.History of pulmonary embolism. 16.History of hypothyroidism. 17.History of thyroid cancer. 18.History of bilateral leg cellulitis. 19.History of short-term memory problems. 20.History of depression. 21.History of insomnia. 22.History of cardiac valve replacement. 23.History of aortic valve replacement with bovine aortic valve. 24.History of mitral valve repair. 25.History of mediastinal lymph node biopsy. 26.Remote history of nicotine dependence. 27.Obesity with body mass index of 34.7. 28.Hyponatremia. 29.Hypokalemia. 30.FULL CODE. RECOMMENDATION AND DISCUSSION: Continue current medications, continue symptomatic treatment. Otherwise we will continue to monitor. Empiric antibiotics. Follow the cultures. Repeat culture. Follow closely with Infectious Disease. The prognosis is extremely guarded because of multiple complex medical issues. Further recommendations to follow. Also recommend a 2D echo with Doppler. MMODL / IJN: [id number] /
[2020-12-03] MEDS: ATORVASTATIN 10 MG TAB PO SCH (20:41)
[2020-12-03] MEDS ORDERED: POTASSIUM CHLORIDE ER 20 MEQ TAB.ER PO STA (22:38)
[2020-12-03] MEDS ORDERED: POTASSIUM CHLORIDE ER 20 MEQ TAB.ER PO ONE (22:45)
[2020-12-04 01:43] LABS: HCT 37.9 % (39.0-53.0); HGB 12.2 gm/dL (13.0-17.5); MCH 30.4 pg (25.0-35.0); MCHC 32.2 g/dL (31.0-37.0); MCV 94.3 fL (80.0-100.0); Mean Platelet Volume 7.9; Platelet Count 168 k/uL (150-450); RBC 4.02 m/uL (4.30-5.90); RDW 14.9 % (11.5-15.5); WBC 12.7 k/uL (3.8-10.6)
[2020-12-04] MEDS: PANTOPRAZOLE 40 MG/10 ML VIAL IVP SCH ×2 (01:57→11:20)
[2020-12-04] MEDS: ONDANSETRON 4 MG/2 ML VIAL IVP PRN ×2 (01:57→08:19)
--- NOTE | 2020-12-04 02:12 | XR ---
EXAM: XR Abdomen, 2 Views CLINICAL HISTORY: ITS.REASON XR Reason: Rule out small bowl obstruction TECHNIQUE: Frontal view of the abdomen/pelvis with upright view of the abdomen. COMPARISON: 10/12/2018 FINDINGS: Intraperitoneal space: No free air. Gastrointestinal tract: Nonspecific bowel gas pattern. No dilation. Large volume of stool. Bones/joints: No acute fracture. No dislocation. IMPRESSION: Nonspecific bowel gas pattern. Large volume of stool.
[2020-12-04] MEDS: AMPICILLIN-SULBACTAM 3 GM in SODIUM CHLORIDE 0.9% 100 ML IVPB SCH ×4 (06:57→23:43)
[2020-12-04] MEDS: LEVOTHYROXINE 100 MCG TAB PO SCH (06:58)
[2020-12-04] MEDS: LEVOTHYROXINE 75 MCG TAB PO SCH (06:58)
[2020-12-04] MEDS: FORMOTEROL FUMARATE 20 MCG/2 ML NEBU INHALATION SCH ×2 (08:56→19:41)
[2020-12-04] MEDS: IPRATROPIUM 0.5 MG/2.5 ML NEBU INHALATION SCH ×4 (08:56→19:41)
[2020-12-04] MEDS: DILTIAZEM CD 120 MG CAP.ER.24H PO SCH (10:20)
[2020-12-04] MEDS: METOPROLOL TARTRATE 50 MG TAB PO SCH ×2 (10:21→19:57)
[2020-12-04 10:31] LABS: Calcium 6.9 mg/dL (8.4-10.2); Magnesium 2.1 mg/dL (1.6-2.3); Potassium 3.8 mmol/L (3.5-5.1)
[2020-12-04 10:34] LABS: Basophils % (A) 0 %; Eosinophils # (A) 0.1 k/uL (0-0.7); Eosinophils % (A) 1 %; HCT 36.6 % (39.0-53.0); HGB 12.3 gm/dL (13.0-17.5); Lymphocytes # (A) 0.5 k/uL (1.0-4.8); Lymphocytes % (A) 5 %; MCH 31.4 pg (25.0-35.0); MCHC 33.5 g/dL (31.0-37.0); MCV 93.7 fL (80.0-100.0); Mean Platelet Volume 7.5; Monocytes # (A) 0.4 k/uL (0-1.0); Monocytes % (A) 4 %; Neutrophils % (A) 89 %; Platelet Count 176 k/uL (150-450); RBC 3.91 m/uL (4.30-5.90); RDW 14.4 % (11.5-15.5); WBC 10.1 k/uL (3.8-10.6)
[2020-12-04] MEDS: APIXABAN 2.5 MG TABLET PO SCH (10:45)
[2020-12-04] MEDS: FUROSEMIDE 40 MG TAB PO SCH ×2 (11:15→18:24)
[2020-12-04] MEDS: AMIODARONE 100 MG TAB PO SCH (11:15)
[2020-12-04] MEDS ORDERED: MAGNESIUM CITRATE 296 ML BOTTLE PO ONE (15:07)
[2020-12-04] MEDS ORDERED: bisacodyL 10 MG SUPP RECTAL STA (15:12)
--- NOTE | 2020-12-04 17:55 | PN ---
PROGRESS NOTE DATE OF SERVICE: 12/04/2020 This 75-year-old gentleman who was admitted with dehydration and renal failure, also had Enterococcus faecalis sepsis also. Final ID is pending at this time. No chest pain. No palpitations. No fever. PHYSICAL EXAMINATION: Alert, oriented x3. Pulse 74, blood pressure 102/59, respiration 18, temperature normal, pulse ox 97% on 2 L. HEENT: Conjunctivae normal. Oral mucosa moist. NECK: No jugular venous distention. No lymph node enlargement. CARDIOVASCULAR: S1, S2, muffled. No S3, no S4, RESPIRATORY: Diminished breath sounds at the bases. A few scattered rhonchi. ABDOMEN: Soft, nontender. LEGS: No edema, no swelling. NERVOUS SYSTEM: No focal deficits. LABS: WBC 10.2, hemoglobin 12.3. Cultures are as noted. ASSESSMENT: 1. Severe dehydration secondary to subacute diarrhea as well as acute renal failure with prerenal acute tubular necrosis, present on admission. 2. Sepsis with Enterococcus faecalis, present on admission. 3. Possible bibasilar pneumonia. 4. Change in mental status, acute metabolic encephalopathy secondary to dehydration. 5. Acute diarrhea of undetermined etiology. 6. Increased WBC. 7. Clostridium difficile ruled out. 8. Possible baseline chronic kidney stage 3. 9. Elevated lactic acid, possible acute dehydration or sepsis, present on admission. 10.History atrial fibrillation. 11.History of CHF. 12.History of DVT. 13.Hypertension. 14.History of DJD. 15.History of pulmonary embolism. 16.History of hypothyroidism. 17.History of thyroid cancer. 18.History of bilateral leg cellulitis. 19.History of short-term memory problems. 20.History of depression. 21.History of insomnia. 22.History of cardiac valve replacement. 23.History of aortic valve replacement with by a bovine aortic valve. 24.History of mitral valve repair. 25.History of mediastinal lymph node biopsy. 26.Remote history of nicotine dependence. 27.Obesity with body mass index of 34.7. 28.Hyponatremia. 29.Hypokalemia. 30.FULL CODE. RECOMMENDATIONS AND DISCUSSION: I recommend to continue current management, continue to monitor and symptomatic treatment. Otherwise, at this time await the final ID of the organism. Closely follow with Infectious Disease. Currently the patient is on Unasyn. We will continue the IV Unasyn. Continue to monitor. Further recommendations to follow. The most recent blood cultures are negative on 12/03. MMODL / IJN: [id number] /
[2020-12-04] MEDS: SODIUM CHLORIDE 0.9% 1,000 ML IV SCH (18:24)
[2020-12-04] MEDS: PANTOPRAZOLE 40 MG TABLET PO SCH (20:38)
[2020-12-04] MEDS: ATORVASTATIN 10 MG TAB PO SCH (20:38)
--- NOTE | 2020-12-04 22:39 | PN ---
PROGRESS NOTE DATE OF SERVICE: 12/04/2020 REASON FOR FOLLOWUP: Enterococcus faecalis bacteremia. INTERVAL HISTORY: Patient is currently afebrile. The patient is breathing comfortably. Denies having any chest pain, shortness of breath or cough. No abdominal pain or diarrhea. PHYSICAL EXAMINATION: Blood pressure is 100/58 with a pulse of 81, temperature is 97.8. He is 93% on 2 L nasal cannula. General description is an elderly male up in the chair in no distress. Respiratory system: Unlabored breathing, decreased breath sounds in the base. No wheeze. HEART: S1, S2. Regular rate and rhythm. ABDOMEN: Soft, distended. No guarding or rigidity. EXTREMITIES: Some trace edema of the feet. LABS: Hemoglobin is 12.1, white count 10.1, BUN of 27, creatinine 0.16. ESR 32, CRP 98.2. Blood cultures 12/03 so far negative. DIAGNOSTIC IMPRESSION AND PLAN: Patient with enterococcus faecalis bacteremia question for possible abdominal source as the patient's UA was negative. CT of abdomen and pelvis done without any contrast did not show any acute abnormality. We will check an echocardiogram. Continue with Unasyn and monitor clinical course closely. MMODL / IJN: [id number] /
[2020-12-05] MEDS: LEVOTHYROXINE 100 MCG TAB PO SCH (04:14)
[2020-12-05] MEDS: LEVOTHYROXINE 75 MCG TAB PO SCH (04:14)
[2020-12-05] MEDS: AMPICILLIN-SULBACTAM 3 GM in SODIUM CHLORIDE 0.9% 100 ML IVPB SCH ×3 (05:36→17:16)
[2020-12-05] MEDS: FORMOTEROL FUMARATE 20 MCG/2 ML NEBU INHALATION SCH ×2 (07:35→20:20)
[2020-12-05] MEDS: IPRATROPIUM 0.5 MG/2.5 ML NEBU INHALATION SCH ×4 (07:35→20:20)
[2020-12-05] MEDS: PANTOPRAZOLE 40 MG TABLET PO SCH ×2 (09:50→20:48)
[2020-12-05] MEDS: AMIODARONE 100 MG TAB PO SCH (09:50)
[2020-12-05] MEDS: FUROSEMIDE 40 MG TAB PO SCH ×2 (09:50→17:17)
[2020-12-05] MEDS: DILTIAZEM CD 120 MG CAP.ER.24H PO SCH (09:50)
[2020-12-05] MEDS: METOPROLOL TARTRATE 50 MG TAB PO SCH (09:50)
--- NOTE | 2020-12-05 09:57 | XR ---
EXAMINATION TYPE: XR abdomen 2V DATE OF EXAM: 12/05/2020 COMPARISON: 12/04/2020 HISTORY: Constipation TECHNIQUE: Abdomen is examined in the supine and upright views FINDINGS: Nonspecific bowel gas. Previous contrast within the colon has passed. No Significant fecal retention is evident. There are prominent small bowel loops distended with air. No zone of transition is identified. IMPRESSION: 1. Air-filled small bowel loops and colon. Correlate for ileus. Continued follow-up is recommended.
--- NOTE | 2020-12-05 10:39 | P.CONS ---
History of Present Illness - Reason for Consult Consult date: 12/04/20 Coffee ground emesis Requesting physician: Temo Page - Chief Complaint Diarrhea - History of Present Illness 75-year-old male with medical history significant for atrial fibrillation on Eliquis therapy, prior DVT/PE, hyperlipidemia, hypertension, thyroid disorder, congestive heart failure and osteoarthritis who presented to the hospital due to diarrhea. Of note history is been taken in conversation with the patient and his who is bedside. The patient had presented reporting loose frequent bowel movements. As per the patient he states this has been present for 5 days but his states that this is been present for 2 months. The patient has be en having 4-5 watery bowel movements with episodes of urgency as well as incontinence. No blood per rectum. He denies any history of constipation and feels his last formed bowel movement was a few weeks ago. Last colonoscopy in 2018 within normal limits with EGD at that time significant for antral gastritis and a small hiatal hernia. He denies any history of peptic ulcer disease or acid reflux. He is on anticoagulation therapy as stated for atrial fibrillation. No excessive NSAID use. He has required ERCP in the past. The patient had been taking Imodium at home with no help. Patient was found to be febrile on presentation and had blood cultures positive for Enterococcus. He had one episode of dark-colored emesis yesterday. No further emesis since that time. CT scan of the abdomen showed basilar pulmonary infiltrates greater on the right with abdominal wall hernia with no evidence of bowel obstruction or acute findings in the abdomen and pelvis the patient did have a large stool burden. Review of Systems CONSTITUTIONAL: No recent weight loss. No fever, chills,night sweats. EYES: Vision unremarkable. EARS: No change in hearing or recent development of tinnitus. RESPIRATORY: No shortness of breath or wheezing. CARDIOVASCULAR: No chest pain, or palpitations. GENITOURINARY: No dysuria or hematuria. SKIN: Unremarkable, No new rashes or lesions. MUSCULOSKELETAL: No new weakness or acute joint issues.chronic back pain at baseline. NEUROLOGICAL: No new focal deficits or memory issues, but he does have memory impairment at baseline. BEHAVIORAL/PSYCH: No recent depression or anxiety. ENDOCRINE: Unremarkable. Past Medical History Past Medical History: Atrial Fibrillation, Cancer, Heart Failure, Deep Vein Thrombosis (DVT), Hyperlipidemia, Hypertension, Osteoarthritis (OA), Pulmonary Embolus (PE), Thyroid Disorder, Vascular Disorder Additional Past Medical History / Comment(s): THYROID CANCER with surgery/radio active tablets, bilateral lower leg cellulitis 2016, varicose veins, past DVTs and PEs, short term memory problems, episodes of hypotension, hiatal hernia, gastritis. Insomnia. Depression. Atrial fibrillation. History of Any Multi-Drug Resistant Organisms: None Reported Past Surgical History: Cardiac Valve Replacement, Heart Catheterization, Joint Replacement Additional Past Surgical History / Comment(s): Thyroidectomy, total left knee re placement, JAYDE/CVN, 09/29/16 aortic valve replacement with bovine valve and mitral valve repair, mediastinal lymph node biopsy, sternal chest wound debridement/ wound vac/sternotomy and muscle straps, COLONOSCOPY, EGD, bilateral cataract removals and L eye was injured requirin surgery to remove blood. Past Anesthesia/Blood Transfusion Reactions: No Reported Reaction Additional Past Anesthesia/Blood Transfusion Reaction / Comm: Pt has received blood in past without reaction. Past Psychological History: Depression Additional Psychological History / Comment(s): and lives in the family home with the . 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 No experience. No new animals Smoking Status: Never smoker Past Alcohol Use History: Rare Additional Past Alcohol Use History / Comment(s): SMOKED 3 PPD. Started smoking in 1959 and QUIT SMOKING 1979. Pt smoked cigars on and off from 1991 until 1999. Past Drug Use History: None Reported - Past Family History Father Family Medical History: Coronary Artery Disease (CAD) Additional Family Medical History / Comment(s): Father at the age pf 76yrs from heart problems. Mother Family Medical History: Vascular Disorder Additional Family Medical History / Comment(s): Mother had varicosities. She lived to be 92 yrs old. Brother(s) Family Medical History: Cancer Additional Family Medical History / Comment(s): LIVER CA. BLOOD CLOT. Medications and Allergies Home Medications Medication Instructions Recorded Confirmed Type Apixaban [Eliquis] 5 mg PO BID 05/30/19 12/01/20 History Amiodarone [Cordarone] 100 mg PO DAILY 12/01/20 12/01/20 History Atorvastatin [Lipitor] 10 mg PO HS 12/01/20 12/01/20 History Diltiazem HCl [Cartia Xt] 120 mg PO DAILY 12/01/20 12/01/20 History Doxycycline Hyclate 20mg Tab 1 tab PO BID 12/01/20 12/01/20 History Furosemide [Lasix] 40 mg PO BID 12/01/20 12/01/20 History Levothyroxine Sodium [Synthroid] 175 mcg PO DAILY 12/01/20 12/01/20 History Metoprolol Tartrate [Lopressor] 150 mg PO BID 12/01/20 12/01/20 History Umeclidinium Brm/Vilanterol Tr 1 puff INHALATION RT-BID 12/01/20 12/01/20 History [Anoro Ellipta 62.5-25 Mcg INH] lisinopriL [Zestril] 2.5 mg PO DAILY 12/01/20 12/01/20 History predniSONE See Taper PO DIRECTED 12/01/20 12/01/20 History Allergies Allergy/AdvReac Type Severity Reaction Status Date / Time No Known Allergies Allergy Verified 12/01/20 16:55 Physical Exam Vitals: Vital Signs Temp Pulse Pulse Resp BP Pulse Ox 12/04/20 12:02 75 12/04/20 12:00 74 18 102/59 97 12/04/20 11:57 78 12/04/20 09:10 76 12/04/20 09:04 80 12/04/20 08:57 84 12/04/20 08:00 97.6 F 66 18 92/63 95 12/04/20 04:00 98.6 F 61 18 92/59 100 12/04/20 02:00 87 18 12/04/20 00:00 98.6 F 87 18 99/62 94 L 12/03/20 21:07 78 12/03/20 20:54 78 12/03/20 20:33 78 12/03/20 20:00 98.1 F 88 19 111/61 100 12/03/20 16:45 74 12/03/20 16:29 74 94 L 12/03/20 16:00 98.4 F 74 18 90/55 96 Intake and Output 12/03/20 12/04/20 12/04/20 22:59 06:59 14:59 Output Total 500 1 100 Balance -500 -1 -100 Output: Urine 500 100 Stool 1 Other: Voiding Method Urinal Urinal Urinal Weight 105 kg CONSTITUTIONAL: Patient appears comfortable in no apparent distress. NECK: No JVD or lymph node enlargement. HEET: Unremarkable, conjunctivae/corneas clear. Sclera anicteric. Oral cavity no lesions. RESPIRATORY: Clear to auscultation bilaterally. CARDIOVASCULAR: S1-S2 appreciated. GASTROINTESTINAL: soft, mildly tender, no organomegaly. Bowel sounds are p ositive. PSYCH: Denies any depression or anxiety. SKIN: No rashes NEUROLOGICAL: alert, oriented x 2, no focal deficits noted. Results CBC & Chem 7: 12/04/20 09:39 12/04/20 09:39 Labs: Abnormal Lab Results - Last 24 Hours (Table) 12/01/20 12/04/20 12/04/20 Range/Units 14:20 01:21 09:39 WBC 12.7 H (3.8-10.6) k/uL RBC 4.02 L 3.91 L (4.30-5.90) m/uL Hgb 12.2 L 12.3 L (13.0-17.5) gm/dL Hct 37.9 L 36.6 L (39.0-53.0) % Neutrophils # 9.0 H (1.3-7.7) k/uL Lymphocytes # 0.5 L (1.0-4.8) k/uL ESR (0-15) mm/hr Carbon Dioxide (22-30) mmol/L BUN (9-20) mg/dL Glucose (74-99) mg/dL Calcium (8.4-10.2) mg/dL C-Reactive Protein (<1.0) mg/dL Albumin (PEP) 3.21 L (3.80-4.90) g/dL [id number] 0.48 H (0.10-0.40) g/dL 12/04/20 12/04/20 12/04/20 Range/Units 09:39 09:39 09:39 WBC (3.8-10.6) k/uL RBC (4.30-5.90) m/uL Hgb (13.0-17.5) gm/dL Hct (39.0-53.0) % Neutrophils # (1.3-7.7) k/uL Lymphocytes # (1.0-4.8) k/uL ESR 32 H (0-15) mm/hr Carbon Dioxide 34 H (22-30) mmol/L BUN 27 H (9-20) mg/dL Glucose 137 H (74-99) mg/dL Calcium 6.9 L (8.4-10.2) mg/dL C-Reactive Protein 19.2 H (<1.0) mg/dL Albumin (PEP) (3.80-4.90) g/dL [id number] (0.10-0.40) g/dL Microbiology - Last 24 Hours (Table) 12/02/20 13:43 Blood Culture Gram Stain - Preliminary Blood Blood Culture - Preliminary Enterococcus faecalis CT scan - abdomen: report reviewed ( CT scan of the abdomen showed basilar pulmonary infiltrates greater on the right with abdominal wall hernia with no evidence of bowel obstruction or acute findings in the abdomen and pelvis the patient did have a large stool burden.) Assessment and Plan (1) Coffee ground emesis Narrative/Plan: 75-year-old male presenting with complaints of diarrhea the patient subsequently had an episode of dark-colored emesis described as coffee-ground in appearance. No history of peptic ulcer disease with last EGD in 2018 showing antritis and a small hiatal hernia. Unclear etiology, may be related to severe constipation, concern is for possible GI bleed with differential including gastritis, esophagitis, peptic ulcer disease or other etiology. Current Visit: Yes Status: Acute Code(s): K92.0 - HEMATEMESIS SNOMED Code(s): 61295432 (2) Diarrhea Narrative/Plan: Patient presenting with reports of frequent watery bowel movements with incontinence and urgency. Patient reports this is been going on for weeks but says that it has been going on for months. Patient had a large stool burden on imaging and concern is for possible overflow incontinence and diarrhea. Current Visit: Yes Status: Acute Code(s): R19.7 - DIARRHEA, UNSPECIFIED SNOMED Code(s): 53459812 Plan: Supportive care Okay for clear liquid diet Magnesium citrate and Dulcolax suppository ordered for bowel regimen due to concern for overflow incontinence and constipation secondary to large stool burden seen on imaging N.p.o. after midnight Protonix therapy Continue to monitor CBC, BMP, LFTs Plan for EGD tomorrow with all the risk, benefits and possible complications explained to the patient and his at length with all of their questions answered to their satisfaction Thank you for allowing us to participate in the care of the patient
[2020-12-05] MEDS ORDERED: PROPOFOL 10 MG/ML 20 ML VIAL IV ONE (12:44)
[2020-12-05] MEDS ORDERED: LIDOCAINE 1% INJ 10MG/ML (20 ML MDV) ONE (12:44)
[2020-12-05] MEDS ORDERED: IV FLUID CONTINUATION 1,000 ML IV ONE (12:57)
--- NOTE | 2020-12-05 13:19 | P.PCN ---
Date of Procedure: 12/05/20 Description of Procedure: BRIEF HISTORY: 75-year-old male with medical history significant for atrial fibrillation on Eliquis therapy, prior DVT/PE, hyperlipidemia, hypertension, thyroid disorder, congestive heart failure and osteoarthritis who presented to the hospital due to diarrhea. Of note history is been taken in conversation with the patient and his who is bedside. The patient had presented reporting loose frequent bowel movements. As per the patient he states this has been present for 5 days but his states that this is been present for 2 months. The patient has been having 4-5 watery bowel movements with episodes of urgency as well as incontinence. No blood per rectum. He denies any history of constipation and feels his last formed bowel movement was a few weeks ago. Last colonoscopy in 2018 within normal limits with EGD at that time significant for antral gastritis and a small hiatal hernia. He denies any history of peptic ulcer disease or acid reflux. He is on anticoagulation therapy as stated for atrial fibrillation. No excessive NSAID use. He has required ERCP in the past. The patient had been taking Imodium at home with no help. Patient was found to be febrile on presentation and had blood cultures positive for Enterococcus. He h ad one episode of dark-colored emesis yesterday. No further emesis since that time. CT scan of the abdomen showed basilar pulmonary infiltrates greater on the right with abdominal wall hernia with no evidence of bowel obstruction or acute findings in the abdomen and pelvis the patient did have a large stool burden. PROCEDURE PERFORMED: Esophagogastroduodenoscopy with biopsy. PREOPERATIVE DIAGNOSIS: Coffee-ground emesis. ESTIMATED BLOOD LOSS: Minimal. IV sedation per anesthesia. PROCEDURE: After informed consent was obtained, the patient was brought into the endoscopy unit. IV sedation was administered by Anesthesia under continuous monitoring. Initially the Olympus GIF-190 video endoscope was inserted into the mouth. Esophagus intubated without any difficulty. It was gradually advanced into the stomach and duodenum and carefully examined. The bulb and the second part of the duodenum appeared normal, with biopsies taken. The scope at this time was withdrawn to the stomach, adequately insufflated with air, and upon careful examination, mucosa of the antrum, body, cardia and the fundus appeared normal, except for some mild scattered erythema suggestive of mild gastritis with biopsies of antrum and body taken. The scope was then withdrawn into the esophagus. The GE junction was located at 35 cm from the incisors, with a 4 cm hiatal hernia noted. The esophagus appeared normal. There were no erosions or ulcerations seen and the patient tolerated the procedure well. IMPRESSION: 1. Mild gastritis. 2. Moderate hiatal hernia. 3. No active bleeding, old blood or any signs of GI bleed. 4. Biopsies of the duodenum, antrum body. RECOMMENDATIONS: The findings of this examination were discussed with the patient and his . Okay for full liquid diet, advance as tolerated. Await pathology from biopsies. Stool burden improved today on x-ray, patient should be discharged on bowel regimen, we'll reorder her Dulcolax suppository tonight. Follow up with GI as needed in the outpatient setting. Otherwise, the GI service signed off, there will be no GI coverage this weekend and if further gastroenterology evaluation is required the patient will need transfer as per the primary team to a outside facility.
[2020-12-05] MEDS: SODIUM CHLORIDE 0.9% 1,000 ML IV SCH (17:19)
--- NOTE | 2020-12-05 18:00 | ECHOF ---
Referral Reason:bacteremia MEASUREMENTS -------- HEIGHT: 172.7 cm WEIGHT: 104.8 kg BP: 172/83 RVIDd: 3.3 cm (< 3.3) IVSd: 1.2 cm (0.6 - 1.1) LVIDd: 3.9 cm (3.9 - 5.3) LVPWd: 1.2 cm (0.6 - 1.1) IVSs: 1.6 cm LVIDs: 2.6 cm LVPWs: 1.8 cm LA Diam: 4.4 cm (2.7 - 3.8) LAESV Index (A-L): 33.01 ml/m Ao Diam: 3.6 cm (2.0 - 3.7) AV Cusp: 2.0 cm (1.5 - 2.6) MV EXCURSION: 22.560 mm (> 18.000) MV EF SLOPE: 49 mm/s (70 - 150) EPSS: 1.0 cm MV E Amilcar: 1.80 m/s MV DecT: 208 ms MV A Amilcar: 0.56 m/s MV E/A Ratio: 3.20 AV maxP.83 mmHg AV meanP.78 mmHg RAP: 5.00 mmHg RVSP: 46.59 mmHg FINDINGS -------- Sinus rhythm. This was a technically adequate study. The left ventricular size is normal. There is borderline concentric left ventricular hypertrophy. Overall left ventricular systolic function is normal with, an EF between 60 - 65 %. The right ventricle is mildly enlarged. LA is midly dilated 29-33ml/m2. The right atrium is normal in size. Peak/mean gradient across the Aortic Valve is 24.83mmHg / 11.78mmHg. Normally functioning bioprosth etic valve. The mitral valve leaflets are mildly thickened. Mild mitral annular calcification present. Mild m itral regurgitation is present. Mild tricuspid regurgitation present. There is moderate pulmonary hypertension. The right ventric ular systolic pressure, as measured by Doppler, is 46.59mmHg. Trace/mild (physiologic) pulmonic regurgitation. The aortic root size is normal. There is no pericardial effusion. CONCLUSIONS -------- 1. The left ventricular size is normal. 2. There is borderline concentric left ventricular hypertrophy. 3. Overall left ventricular systolic function is normal with, an EF between 60 - 65 %. 4. The right ventricle is mildly enlarged. 5. LA is midly dilated 29-33ml/m2. 6. Peak/mean gradient across the Aortic Valve is 24.83mmHg / 11.78mmHg. 7. Normally functioning bioprosthetic valve. 8. The mitral valve leaflets are mildly thickened. 9. Mild mitral annular calcification present. 10. Mild mitral regurgitation is present. 11. Mild tricuspid regurgitation present. 12. There is moderate pulmonary hypertension. 13. The right ventricular systolic pressure, as measured by Doppler, is 46.59mmHg. 14. Trace/mild (physiologic) pulmonic regurgitation. 15. There is no pericardial effusion. BROACH SETTER: Keesha Uribe RDCS
[2020-12-05] MEDS: ATORVASTATIN 10 MG TAB PO SCH (20:48)
[2020-12-06] MEDS: AMPICILLIN-SULBACTAM 3 GM in SODIUM CHLORIDE 0.9% 100 ML IVPB SCH ×5 (00:20→23:28)
[2020-12-06] MEDS: METOPROLOL TARTRATE 50 MG TAB PO SCH ×3 (00:20→23:29)
[2020-12-06] MEDS: LEVOTHYROXINE 100 MCG TAB PO SCH (06:31)
[2020-12-06] MEDS: LEVOTHYROXINE 75 MCG TAB PO SCH (06:31)
[2020-12-06] MEDS: IPRATROPIUM 0.5 MG/2.5 ML NEBU INHALATION SCH ×4 (08:21→21:02)
[2020-12-06] MEDS: FORMOTEROL FUMARATE 20 MCG/2 ML NEBU INHALATION SCH ×2 (08:21→21:02)
[2020-12-06] MEDS: AMIODARONE 100 MG TAB PO SCH (09:44)
[2020-12-06] MEDS: DILTIAZEM CD 120 MG CAP.ER.24H PO SCH (09:44)
[2020-12-06] MEDS: FUROSEMIDE 40 MG TAB PO SCH ×2 (09:44→17:46)
[2020-12-06] MEDS: PANTOPRAZOLE 40 MG TABLET PO SCH ×2 (09:44→20:52)
--- NOTE | 2020-12-06 10:46 | P.PN ---
Subjective Progress Note Date: 12/05/20 Principal diagnosis: Coffee-ground emesis Enterococcus bacteremia Abdominal ileus Acute renal failure/dehydration Bibasilar pneumonia 75-year-old male patient admitted to the hospital with severe dehydration secondary to acute onset diarrhea resulting in acute renal failure; patient was found to have Enterococcus faecalis bacteremia; ID on board and recommended CT of abdomen to rule out abdominal source of sepsis, CT of abdomen and pelvis was unremarkable for any source of infection but didn't reveal basilar pulmonary infiltrates greater on right along with large stone burden; ID recommending echocardiogram for source of sepsis; patient remains on IV Unasyn; patient had one episode of dark colored, possible coffee-ground emesis yesterday; GI is consulted and patient is scheduled for EGD this morning X-ray of the abdomen was done which revealed possible ileus; on evaluation patient's abdomen is distended but remains soft positive bowel sounds; we will consult general surgery for further recommendations Objective - Vital Signs Vital signs: Vital Signs Temp 98.5 F 12/05/20 03:53 Pulse 72 12/05/20 07:53 Resp 20 12/05/20 03:53 BP 96/61 12/05/20 03:53 Pulse Ox 96 12/05/20 03:53 Intake & Output 12/04/20 12/05/20 12/05/20 18:59 06:59 18:59 Intake Total 1020 0 Output Total 100 376 Balance 920 -376 0 Weight 105 kg 105 kg Intake: Intake, IV Titration 100 Amount Ampicillin-Sulbactam 3 gm 100 In Sodium Chloride 0.9% 100 ml @ 200 mls/hr IVPB Q6HR [facility] Rx#:[id number] Oral 920 0 Output: Urine 100 375 Stool 1 Other: Voiding Method Urinal Urinal # Voids 2 1 # Bowel Movements 1 1 - Exam General appearance: Present: average body habitus, cooperative, no acute distress Neck: Present: normal ROM. Absent: lymphadenopathy, rigidity, thyromegaly Carotids: negative: bruit present Thyroid: bilateral: normal size, negative: enlarged, nodule Respiratory: bilateral: CTA, negative: rales, rhonchi, wheezing - Cardiovascular Rhythm: regular Heart sounds: normal: S1, S2 Abnormal Heart Sounds: Absent: systolic murmur, diastolic murmur - Gastrointestinal General gastrointestinal: Present: normal bowel sounds, soft. Significantly distended, organomegaly, tenderness Genitourinary Comment(s): deferred Integumentary: Present: normal turgor. Absent: jaundiced, rash, ulcer Neurologic: Present: CNII-XII intact. Absent: focal deficits Musculoskeletal: Present: gait normal, strength equal bilaterally Psychiatric: Present: A&O x's 3, appropriate affect, intact judgment & insight - Labs CBC & Chem 7: 12/04/20 09:39 12/04/20 09:39 Labs: Abnormal Lab Results - Last 24 Hours (Table) 12/04/20 12/04/20 Range/Units 09:39 09:39 ESR 32 H (0-15) mm/hr C-Reactive Protein 19.2 H (<1.0) mg/dL Microbiology - Last 24 Hours (Table) 12/02/20 13:43 Blood Culture Gram Stain - Final Blood Blood Culture - Final Enterococcus faecalis 12/03/20 11:58 Blood Culture - Preliminary Blood No Growth after 24 hours Assessment and Plan Assessment: 1. Coffee-ground emesis; hemoglobin remained stable with last hemoglobin of 12.3; patient is scheduled for EGD this morning 2. Enterococcus faecalis bacteremia; patient is currently on IV Unasyn; ID on board and recommending CT abdomen and pelvis for possible source of infection which has been indeterminate; echocardiogram is recommended 3. Acute renal failure/dehydration; continue with IV fluid hydration; BUN/creatinine trending down slowly; we will continue to monitor strict ZEHRA's, daily weights, renal function; avoid nephrotoxic agents 4. Bibasilar pneumonia; currently on IV Unasyn; denies any cough or sputum production, fever or chills 5. Overflow incontinence and Constipation secondary to large stone burden; GI recommending magnesium citrate and Dulcolax suppository for bowel regimen; patient will be undergoing EGD this morning 6. Hypertension; stable on Cartia 120 mg daily, metoprolol 150 mg twice a day and lisinopril 2.5 mg daily 7. Hyperlipidemia; Lipitor 10 mg by mouth daily at bedtime 8. Atrial fibrillation; rate controlled on amiodarone, diltiazem 120 mg daily and metoprolol 150 mg twice a day; continue with systemic anticoagulation 9. Hypothyroidism; levothyroxine 175 MCG daily DVT prophylaxis; SCDs/systemic anticoagulation CODE STATUS; full code
[2020-12-06 11:26] LABS: Calcium 7.1 mg/dL (8.4-10.2); Potassium 3.6 mmol/L (3.5-5.1)
[2020-12-06 11:35] LABS: Basophils % (A) 0 %; Eosinophils # (A) 0.2 k/uL (0-0.7); Eosinophils % (A) 2 %; HCT 38.4 % (39.0-53.0); HGB 11.8 gm/dL (13.0-17.5); Lymphocytes # (A) 0.5 k/uL (1.0-4.8); Lymphocytes % (A) 5 %; MCH 29.2 pg (25.0-35.0); MCHC 30.8 g/dL (31.0-37.0); MCV 94.8 fL (80.0-100.0); Mean Platelet Volume 7.9; Monocytes # (A) 0.3 k/uL (0-1.0); Monocytes % (A) 4 %; Neutrophils # (A) 8.6 k/uL (1.3-7.7); Neutrophils % (A) 89 %; Platelet Count 225 k/uL (150-450); RBC 4.05 m/uL (4.30-5.90); WBC 9.7 k/uL (3.8-10.6)
--- NOTE | 2020-12-06 12:08 | XR ---
EXAMINATION TYPE: XR abdomen 2V DATE OF EXAM: 12/06/2020 CLINICAL DATA: 75-year-old male with ileus, [facility] COMPARISON: 12/05/2020 FINDINGS: Prosthetic aortic valve. No evidence for free intraperitoneal air. Generalized colonic distention and air-fluid levels throughout. Colon measures up to 8.9 cm at the level of the splenic flexure versus 10.0 cm, previously. Scattered air-fluid levels within the small bowel also noted. IMPRESSION: Pancolonic distention with multiple air-fluid levels throughout. Colon measures up to 8.9 cm versus 1 0.0 cm, previously. Correlate for an ongoing marked ileus.
--- NOTE | 2020-12-06 17:14 | P.PN ---
Subjective Progress Note Date: 12/06/20 Principal diagnosis: Coffee-ground emesis Enterococcus bacteremia Abdominal ileus Acute renal failure/dehydration Bibasilar pneumonia 75-year-old male patient admitted to the hospital with severe dehydration secondary to acute onset diarrhea resulting in acute renal failure; patient was found to have Enterococcus faecalis bacteremia; ID on board and recommended CT of abdomen to rule out abdominal source of sepsis, CT of abdomen and pelvis was unremarkable for any source of infection but didn't reveal basilar pulmonary infiltrates greater on right along with large stone burden; ID recommending echocardiogram for source of sepsis; patient remains on IV Unasyn; patient had one episode of dark colored, possible coffee-ground emesis yesterday; GI is consulted and patient is scheduled for EGD this morning X-ray of the abdomen was done which revealed possible ileus; on evaluation patient's abdomen is distended but remains soft positive bowel sounds; we will consult general surgery for further recommendations 12/06/2020 Patient is seen and evaluated in room at bedside; nursing staff reporting softer blood pressure; patient continues to complain of abdominal distention Vital signs are reviewed and reveal temperature of 98.8, pulse 54, blood pressure of 83/52 with O2 saturation 90% on room air Lab review shows a white blood count of 9.7, hemoglobin 11.8 and platelet count of 225, sodium 135, potassium 2.6, BUN/creatinine at 25/1.27 Abdominal x-ray reveals continued and colonic distention with multiple air-fluid levels We will continue with IV fluid hydration; consult surgery; recommend NG tube placement to suction Objective - Vital Signs Vital signs: Vital Signs Temp 98.2 F 12/06/20 04:30 Pulse 72 12/06/20 08:38 Resp 18 12/06/20 04:30 BP 99/58 12/06/20 04:30 Pulse Ox 95 12/06/20 04:30 Intake & Output 12/05/20 12/06/20 12/06/20 18:59 06:59 18:59 Intake Total 932 480 Output Total 351 400 Balance 581 -400 480 Weight 105 kg 108 kg Intake: IV 50 Intake, IV Titration 280 Amount Ampicillin-Sulbactam 3 gm 100 In Sodium Chloride 0.9% 100 ml @ 200 mls/hr IVPB Q6HR [facility] Rx#:[id number] Sodium Chloride 0.9% 1, 180 000 ml @ 20 mls/hr IV . Q24H [facility] Rx#:[id number] Oral 602 480 Output: Urine 350 400 Stool 1 Other: Voiding Method Urinal # Bowel Movements 1 1 - Exam General appearance: Present: average body habitus, cooperative, no acute distress Neck: Present: normal ROM. Absent: lymphadenopathy, rigidity, thyromegaly Carotids: negative: bruit present Thyroid: bilateral: normal size, negative: enlarged, nodule Respiratory: bilateral: CTA, negative: rales, rhonchi, wheezing - Cardiovascular Rhythm: regular Heart sounds: normal: S1, S2 Abnormal Heart Sounds: Absent: systolic murmur, diastolic murmur - Gastrointestinal General gastrointestinal: Present: normal bowel sounds, soft. Significantly distended, organomegaly, tenderness Genitourinary Comment(s): deferred Integumentary: Present: normal turgor. Absent: jaundiced, rash, ulcer Neurologic: Present: CNII-XII intact. Absent: focal deficits Musculoskeletal: Present: gait normal, strength equal bilaterally Psychiatric: Present: A&O x's 3, appropriate affect, intact judgment & insight - Labs CBC & Chem 7: 12/06/20 10:54 12/06/20 10:54 Labs: Microbiology - Last 24 Hours (Table) 12/03/20 11:58 Blood Culture - Preliminary Blood No Growth after 48 hours Assessment and Plan Assessment: 1. Coffee-ground emesis; hemoglobin remained stable with last hemoglobin of 12. 3; patient is scheduled for EGD this morning 2. Enterococcus faecalis bacteremia; patient is currently on IV Unasyn; ID on board and recommending CT abdomen and pelvis for possible source of infection which has been indeterminate; echocardiogram is recommended 3. Acute renal failure/dehydration; continue with IV fluid hydration; BUN/creatinine trending down slowly; we will continue to monitor strict ZEHRA's, daily weights, renal function; avoid nephrotoxic agents 4. Bibasilar pneumonia; currently on IV Unasyn; denies any cough or sputum production, fever or chills 5. Overflow incontinence and Constipation secondary to large stone burden; GI recommending magnesium citrate and Dulcolax suppository for bowel regimen; patient will be undergoing EGD this morning 6. Hypertension; stable on Cartia 120 mg daily, metoprolol 150 mg twice a day and lisinopril 2.5 mg daily 7. Hyperlipidemia; Lipitor 10 mg by mouth daily at bedtime 8. Atrial fibrillation; rate controlled on amiodarone, diltiazem 120 mg daily and metoprolol 150 mg twice a day; continue with systemic anticoagulation 9. Hypothyroidism; levothyroxine 175 MCG daily DVT prophylaxis; SCDs/systemic anticoagulation CODE STATUS; full code
[2020-12-06] MEDS: SODIUM CHLORIDE 0.9% 1,000 ML IV SCH (17:47)
[2020-12-06] MEDS: ATORVASTATIN 10 MG TAB PO SCH (20:52)
--- NOTE | 2020-12-06 23:23 | PN ---
PROGRESS NOTE DATE OF SERVICE: 12/06/2020 REASON FOR FOLLOWUP: Enterococcus faecalis bacteremia. INTERVAL HISTORY: Patient is currently afebrile. The patient is breathing comfortably. The patient denies having any chest pain, shortness of breath, cough. No nausea, vomiting. No abdominal pain or diarrhea. PHYSICAL EXAMINATION: Blood pressure is 94/60 with a pulse of 73, temperature of 97.5. He is 91% on room air. General description: The patient is an elderly male lying in bed in no distress. RESPIRATORY SYSTEM: Unlabored breathing, with decreased breath sounds in the base. No wheeze. Heart S1, S2. Regular rate and rhythm. ABDOMEN: Soft, no tenderness. LAB: His white count has normalized. Repeat blood culture has been negative so far. Echocardiogram did not show any significant wall motion abnormality or vegetation except mitral valve leaflets from mild thickening. DIAGNOSTIC IMPRESSION AND PLAN: Patient with Enterococcus faecalis bacteremia. Concern is likely for the abdominal source. The patient has cleared his bacteremia very quickly that will make it to be less likely endovascular source. Patient to continue with Unasyn and try to switch to oral antibiotic on discharge and will monitor clinical course closely. MMODL / IJN: [id number] /
[2020-12-07] MEDS: LEVOTHYROXINE 100 MCG TAB PO SCH (06:18)
[2020-12-07] MEDS: LEVOTHYROXINE 75 MCG TAB PO SCH (06:18)
[2020-12-07] MEDS: AMPICILLIN-SULBACTAM 3 GM in SODIUM CHLORIDE 0.9% 100 ML IVPB SCH ×3 (06:18→17:39)
[2020-12-07] MEDS: FORMOTEROL FUMARATE 20 MCG/2 ML NEBU INHALATION SCH ×2 (08:04→20:43)
[2020-12-07] MEDS: IPRATROPIUM 0.5 MG/2.5 ML NEBU INHALATION SCH ×4 (08:04→20:43)
[2020-12-07 09:16] LABS: Calcium 6.9 mg/dL (8.4-10.2); Potassium 3.5 mmol/L (3.5-5.1)
[2020-12-07] MEDS: PANTOPRAZOLE 40 MG TABLET PO SCH ×2 (09:41→20:09)
[2020-12-07] MEDS: METOPROLOL TARTRATE 50 MG TAB PO SCH (09:41)
[2020-12-07] MEDS: FUROSEMIDE 40 MG TAB PO SCH ×2 (09:41→17:40)
[2020-12-07] MEDS: AMIODARONE 100 MG TAB PO SCH (09:41)
[2020-12-07] MEDS: DILTIAZEM CD 120 MG CAP.ER.24H PO SCH (09:41)
--- NOTE | 2020-12-07 09:58 | P.GSCN ---
History of Present Illness Consult date: 12/07/20 Reason for Consult: Colonic ileus History of present illness: 75-year-old male admitted on 12/01 with persistent diarrhea and change in bowel habits. Patient had mild lactic acidosis. C. diff was reportedly negative. He had a CAT scan which showed no definite abnormalities. He was also having some vomiting and coffee grounds. GI performed an EGD. He was found to have enterococcus bacteremia. Patient over the last 4-5 days has had increased abdominal distention. X-rays showed colonic ileus. Last colonoscopy reportedly 2 years ago. We were consulted for colonic ileus. Patient states today he has abdominal distention is improved. His last bowel movement was 2 days ago. He is passing flatus. Yesterday's x-rays showed slight improvement in colonic distention. A CAT scan was ordered for this morning is pending. Review of Systems The patient denies any acute changes in vision or hearing, no dysphagia or odynophagia, no chest pain or shortness of breath, no dysuria or hematuria, no headache, no runny nose, no rectal bleeding or melena, no unexplained weight loss Past Medical History Past Medical History: Atrial Fibrillation, Cancer, Heart Failure, Deep Vein Thrombosis (DVT), Hyperlipidemia, Hypertension, Osteoarthritis (OA), Pulmonary Embolus (PE), Thyroid Disorder, Vascular Disorder Additional Past Medical History / Comment(s): THYROID CANCER with surgery/radio active tablets, bilateral lower leg cellulitis 2015, varicose veins, past DVTs and PEs, short term memory problems, episodes of hypotension, hiatal hernia, gas tritis. Insomnia. Depression. Atrial fibrillation. History of Any Multi-Drug Resistant Organisms: None Reported Past Surgical History: Cardiac Valve Replacement, Heart Catheterization, Joint Replacement Additional Past Surgical History / Comment(s): Thyroidectomy, total left knee replacement, JAYDE/CVN, 09/29/16 aortic valve replacement with bovine valve and mitral valve repair, mediastinal lymph node biopsy, sternal chest wound debridement/ wound vac/sternotomy and muscle straps, COLONOSCOPY, EGD, bilateral cataract removals and L eye was injured requirin surgery to remove blood. Past Anesthesia/Blood Transfusion Reactions: No Reported Reaction Additional Past Anesthesia/Blood Transfusion Reaction / Comm: Pt has received blood in past without reaction. Past Psychological History: Depression Additional Psychological History / Comment(s): and lives in the family home with the . 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 No experience. No new animals Smoking Status: Never smoker Past Alcohol Use History: Rare Additional Past Alcohol Use History / Comment(s): SMOKED 3 PPD. Started smoking in 1959 and QUIT SMOKING 1979. Pt smoked cigars on and off from 1991 until 1999. Past Drug Use History: None Reported - Past Family History Father Family Medical History: Coronary Artery Disease (CAD) Additional Family Medical History / Comment(s): Father at the age pf 76yrs from heart problems. Mother Family Medical History: Vascular Disorder Additional Family Medical History / Comment(s): Mother had varicosities. She lived to be 92 yrs old. Brother(s) Family Medical History: Cancer Additional Family Medical History / Comment(s): LIVER CA. BLOOD CLOT. Medications and Allergies Home Medications Medication Instructions Recorded Confirmed Type Apixaban [Eliquis] 5 mg PO BID 05/30/19 12/01/20 History Amiodarone [Cordarone] 100 mg PO DAILY 12/01/20 12/01/20 History Atorvastatin [Lipitor] 10 mg PO HS 12/01/20 12/01/20 History Diltiazem HCl [Cartia Xt] 120 mg PO DAILY 12/01/20 12/01/20 History Doxycycline Hyclate 20mg Tab 1 tab PO BID 12/01/20 12/01/20 History Furosemide [Lasix] 40 mg PO BID 12/01/20 12/01/20 History Levothyroxine Sodium [Synthroid] 175 mcg PO DAILY 12/01/20 12/01/20 History Metoprolol Tartrate [Lopressor] 150 mg PO BID 12/01/20 12/01/20 History Umeclidinium Brm/Vilanterol Tr 1 puff INHALATION RT-BID 12/01/20 12/01/20 History [Anoro Ellipta 62.5-25 Mcg INH] lisinopriL [Zestril] 2.5 mg PO DAILY 12/01/20 12/01/20 History predniSONE See Taper PO DIRECTED 12/01/20 12/01/20 History Allergies Allergy/AdvReac Type Severity Reaction Status Date / Time No Known Allergies Allergy Verified 12/01/20 16:55 Surgical - Exam Vital Signs Temp Pulse Resp BP Pulse Ox 99.1 F 95 16 98/55 92 L 12/01/20 13:00 12/01/20 13:00 12/01/20 13:00 12/01/20 13:00 12/01/20 13:00 Physical exam: General: Well-developed, well-nourished HEENT: Normocephalic, sclerae nonicteric Abdomen: Distended, mild tympany, minimal diffuse tenderness to deep palpation Extremities: No edema Neuro: Alert and oriented Results - Labs 12/06/20 10:54 12/07/20 08:32 Abnormal Lab Results - Last 24 Hours (Table) 12/06/20 12/06/20 12/06/20 Range/Units 10:54 10:54 10:54 RBC 4.05 L (4.30-5.90) m/uL Hgb 11.8 L (13.0-17.5) gm/dL Hct 38.4 L (39.0-53.0) % MCHC 30.8 L (31.0-37.0) g/dL Neutrophils # 8.6 H (1.3-7.7) k/uL Lymphocytes # 0.5 L (1.0-4.8) k/uL Sodium 135 L (137-145) mmol/L Chloride 95 L (98-107) mmol/L Carbon Dioxide 35 H (22-30) mmol/L BUN 25 H (9-20) mg/dL Creatinine 1.27 H (0.66-1.25) mg/dL Glucose 161 H (74-99) mg/dL Calcium 7.1 L (8.4-10.2) mg/dL Procalcitonin 0.10 H (0.02-0.09) ng/mL 12/07/20 Range/Units 08:32 RBC (4.30-5.90) m/uL Hgb (13.0-17.5) gm/dL Hct (39.0-53.0) % MCHC (31.0-37.0) g/dL Neutrophils # (1.3-7.7) k/uL Lymphocytes # (1.0-4.8) k/uL Sodium 135 L (137-145) mmol/L Chloride 96 L (98-107) mmol/L Carbon Dioxide 35 H (22-30) mmol/L BUN 22 H (9-20) mg/dL Creatinine 1.31 H (0.66-1.25) mg/dL Glucose 130 H (74-99) mg/dL Calcium 6.9 L (8.4-10.2) mg/dL Procalcitonin (0.02-0.09) ng/mL Microbiology - Last 24 Hours (Table) 12/03/20 11:58 Blood Culture - Preliminary Blood No Growth after 72 hours Diabetes panel 12/06/20 12/07/20 Range/Units 10:54 08:32 Sodium 135 L 135 L (137-145) mmol/L Potassium 3.6 3.5 (3.5-5.1) mmol/L Chloride 95 L 96 L (98-107) mmol/L Carbon Dioxide 35 H 35 H (22-30) mmol/L BUN 25 H 22 H (9-20) mg/dL Creatinine 1.27 H 1.31 H (0.66-1.25) mg/dL Glucose 161 H 130 H (74-99) mg/dL Calcium 7.1 L 6.9 L (8.4-10.2) mg/dL Calcium panel 12/06/20 12/07/20 Range/Units 10:54 08:32 Calcium 7.1 L 6.9 L (8.4-10.2) mg/dL Pituitary panel 12/06/20 12/07/20 Range/Units 10:54 08:32 Sodium 135 L 135 L (137-145) mmol/L Potassium 3.6 3.5 (3.5-5.1) mmol/L Chloride 95 L 96 L (98-107) mmol/L Carbon Dioxide 35 H 35 H (22-30) mmol/L BUN 25 H 22 H (9-20) mg/dL Creatinine 1.27 H 1.31 H (0.66-1.25) mg/dL Glucose 161 H 130 H (74-99) mg/dL Calcium 7.1 L 6.9 L (8.4-10.2) mg/dL Adrenal panel 12/06/20 12/07/20 Range/Units 10:54 08:32 Sodium 135 L 135 L (137-145) mmol/L Potassium 3.6 3.5 (3.5-5.1) mmol/L Chloride 95 L 96 L (98-107) mmol/L Carbon Dioxide 35 H 35 H (22-30) mmol/L BUN 25 H 22 H (9-20) mg/dL Creatinine 1.27 H 1.31 H (0.66-1.25) mg/dL Glucose 161 H 130 H (74-99) mg/dL Calcium 7.1 L 6.9 L (8.4-10.2) mg/dL Assessment and Plan (1) Adynamic ileus Narrative/Plan: 75-year-old male with colonic ileus. Will review CAT scan scheduled for this morning. Keep nothing by mouth for now. Continue antibiotics for bacteremia. Will follow. Current Visit: Yes Status: Acute Code(s): K56.0 - PARALYTIC ILEUS SNOMED Code(s): 94801826
--- NOTE | 2020-12-07 11:17 | CT ---
EXAMINATION TYPE: CT abdomen pelvis wo con DATE OF EXAM: 12/07/2020 COMPARISON: 12/01/2020 HISTORY: 75-year-old male Bloating, Diarrhea, leukocytosis CT DLP: 1364.4 mGycm. Automated exposure control for dose reduction was used. TECHNIQUE: Contiguous axial scanning of the abdomen and pelvis without IV contrast. Coronal and sagit vincenzo reconstructions performed. FINDINGS: The heart is mildly enlarged without pericardial effusion. Mitral annular calcifications. Extensive c oronary artery calcifications. Large caliber to the main right and the pulmonary arteries measuring u p to 3.1 cm suggest underlying pulmonary arterial hypertension. Trace effusions. Prominent dependent atelectasis of the right base may represent chronic pleural pare nchymal scarring. Increased patchy left basilar groundglass. Tiny hiatal hernia. There appears to be prior resection of the visualized sternum. Liver borderline in size at 17.5 cm. Gallbladder surgically absent. Adrenal glands, left kidney, and pancreas within normal limits. Spleen is borderline enlarged at 13.8 cm with a tiny inferior splenule . Small 1 cm cortical hypodensity exophytic laterally unchanged from recent prior and likely representi ng a cyst. No dilated small bowel, free fluid, or free air. Oral contrast material is noted within the colon. Co hortencia is air-filled mildly dilated up to 6.9 cm along the transverse colon. No mesenteric or retroperit wallace lymphadenopathy. Incisional scar along the infraumbilical midline. Suspect supraumbilical ventral midline incisional h ernia containing omental fat measuring 8.8 cm wide with the abdominal wall defect measuring 5.6 cm wi de, unchanged from recent prior. Mild atherosclerotic calcifications distal abdominal aorta and common iliac arteries. Bladder urine distended. Prostate gland enlargement 5.9 cm wide. No abnormal fluid collection in the pelvis or pelvic lymphadenopathy. Bones: Mild degenerative change left hip. Bilateral L5 pars defects. Bridging endplate spondylosis at L5-S1 resulting in a fixed grade 2 anterolisthesis. Vertebral compression collapse is T6 was seen on the lateral view of the 05/29/2019 chest x-ray compatible with chronic compression collapse. IMPRESSION: 1. Some oral contrast material from a prior fluoroscopic or CT exam noted throughout the colon. Prob ably administered on 12/01/2020. 2. Portions of the colon shows air distention with mild dilatation of 26.9 cm. Consider a colonic il eus. No bowel obstruction identified. 3. Trace effusions, cardiomegaly, and pulmonary hypertension. Correlate to exclude mild CHF. Pleural parenchymal opacity at the right base suspected pleural parenchymal scarring. However, there is incre asing patchy groundglass at the left base. Correlate to exclude symptoms of pneumonia. 4. Stable supraumbilical incisional ventral abdominal wall hernia measuring 8.8 cm wide containing om ental fat. 5. Prominent distention of the urinary bladder with prostatomegaly at 5.9 cm. Correlate to ensure parker t this represents voluntary retention.
[2020-12-07] MEDS: METOCLOPRAMIDE 5 MG/ML 2 ML VIAL IVP SCH ×2 (13:13→17:39)
--- NOTE | 2020-12-07 16:22 | P.PN ---
Subjective Progress Note Date: 12/07/20 Principal diagnosis: Coffee-ground emesis Enterococcus bacteremia Abdominal ileus Acute renal failure/dehydration Bibasilar pneumonia 75-year-old male patient admitted to the hospital with severe dehydration secondary to acute onset diarrhea resulting in acute renal failure; patient was found to have Enterococcus faecalis bacteremia; ID on board and recommended CT of abdomen to rule out abdominal source of sepsis, CT of abdomen and pelvis was unremarkable for any source of infection but didn't reveal basilar pulmonary infiltrates greater on right along with large stone burden; ID recommending echocardiogram for source of sepsis; patient remains on IV Unasyn; patient had one episode of dark colored, possible coffee-ground emesis yesterday; GI is consulted and patient is scheduled for EGD this morning X-ray of the abdomen was done which revealed possible ileus; on evaluation patient's abdomen is distended but remains soft positive bowel sounds; we will consult general surgery for further recommendations 12/06/2020 Patient is seen and evaluated in room at bedside; nursing staff reporting softer blood pressure; patient continues to complain of abdominal distention Vital signs are reviewed and reveal temperature of 98.8, pulse 54, blood pressure of 83/52 with O2 saturation 90% on room air Lab review shows a white blood count of 9.7, hemoglobin 11.8 and platelet count of 225, sodium 135, potassium 2.6, BUN/creatinine at 25/1.27 Abdominal x-ray reveals continued and colonic distention with multiple air-fluid levels We will continue with IV fluid hydration; consult surgery; recommend NG tube placement to suction 12/07/2020 Patient is seen and evaluated sitting up in bedside chair with present in the room; patient continues to complain of abdominal distention but denies any p ain, nausea or vomiting; remains nothing by mouth; patient was evaluated by surgery this morning and a CT of the abdomen is completed which reveals some oral contrast material from prior exam throat:, Portions of colon showing distention with mild dilatation of 26.9 cm indicating possible colonic ileus; no bowel obstruction identified; surgery to review computed tomography scan and make further recommendations; patient reports overall improvement in distention; no NG tube placed at this time; labs are reviewed and are stable with sodium 135, potassium 3.5, BUN/creatinine slightly elevated at 22/1.3 from 25/1.2 yesterday; CRP elevated at 19.2 with full calcitonin of 0.10 Patient with Enterococcus faecalis bacteremia possible likely sources abdomen since bacteremia cleared fairly quickly making endovascular source quite unlikely; ID recommending to continue with Unasyn with plans to switch to oral antibiotics on discharge Objective - Vital Signs Vital signs: Vital Signs Temp 98.6 F 12/07/20 04:00 Pulse 72 12/07/20 08:20 Resp 22 12/07/20 04:00 BP 100/64 12/07/20 04:00 Pulse Ox 94 L 12/07/20 04:00 Intake & Output 12/06/20 12/07/20 12/07/20 18:59 06:59 18:59 Intake Total 480 Output Total 250 1225 Balance 230 -1225 Weight 107 kg Intake: Oral 480 Output: Urine 250 1225 Other: Voiding Method Urinal # Voids 1 # Bowel Movements 1 - Exam General appearance: Present: average body habitus, cooperative, no acute distress Neck: Present: normal ROM. Absent: lymphadenopathy, rigidity, thyromegaly Carotids: negative: bruit present Thyroid: bilateral: normal size, negative: enlarged, nodule Respiratory: bilateral: CTA, negative: rales, rhonchi, wheezing - Cardiovascular Rhythm: regular Heart sounds: normal: S1, S2 Abnormal Heart Sounds: Absent: systolic murmur, diastolic murmur - Gastrointestinal General gastrointestinal: Present: normal bowel sounds, soft. Significantly distended, organomegaly, tenderness Genitourinary Comment(s): deferred Integumentary: Present: normal turgor. Absent: jaundiced, rash, ulcer Neurologic: Present: CNII-XII intact. Absent: focal deficits Musculoskeletal: Present: gait normal, strength equal bilaterally Psychiatric: Present: A&O x's 3, appropriate affect, intact judgment & insight - Labs CBC & Chem 7: 12/06/20 10:54 12/07/20 08:32 Labs: Abnormal Lab Results - Last 24 Hours (Table) 12/06/20 12/06/20 12/06/20 Range/Units 10:54 10:54 10:54 RBC 4.05 L (4.30-5.90) m/uL Hgb 11.8 L (13.0-17.5) gm/dL Hct 38.4 L (39.0-53.0) % MCHC 30.8 L (31.0-37.0) g/dL Neutrophils # 8.6 H (1.3-7.7) k/uL Lymphocytes # 0.5 L (1.0-4.8) k/uL Sodium 135 L (137-145) mmol/L Chloride 95 L (98-107) mmol/L Carbon Dioxide 35 H (22-30) mmol/L BUN 25 H (9-20) mg/dL Creatinine 1.27 H (0.66-1.25) mg/dL Glucose 161 H (74-99) mg/dL Calcium 7.1 L (8.4-10.2) mg/dL Procalcitonin 0.10 H (0.02-0.09) ng/mL 12/07/20 Range/Units 08:32 RBC (4.30-5.90) m/uL Hgb (13.0-17.5) gm/dL Hct (39.0-53.0) % MCHC (31.0-37.0) g/dL Neutrophils # (1.3-7.7) k/uL Lymphocytes # (1.0-4.8) k/uL Sodium 135 L (137-145) mmol/L Chloride 96 L (98-107) mmol/L Carbon Dioxide 35 H (22-30) mmol/L BUN 22 H (9-20) mg/dL Creatinine 1.31 H (0.66-1.25) mg/dL Glucose 130 H (74-99) mg/dL Calcium 6.9 L (8.4-10.2) mg/dL Procalcitonin (0.02-0.09) ng/mL Microbiology - Last 24 Hours (Table) 12/03/20 11:58 Blood Culture - Preliminary Blood No Growth after 72 hours Assessment and Plan Assessment: 1. Coffee-ground emesis; hemoglobin remained stable with last hemoglobin of 12.3; patient is scheduled for EGD this morning 2. Enterococcus faecalis bacteremia; patient is currently on IV Unasyn; ID on board and recommending CT abdomen and pelvis for possible source of infection which has been indeterminate; echocardiogram is recommended 3. Acute renal failure/dehydration; continue with IV fluid hydration; BUN/creatinine trending down slowly; we will continue to monitor strict ZEHRA's, daily weights, renal function; avoid nephrotoxic agents 4. Bibasilar pneumonia; currently on IV Unasyn; denies any cough or sputum production, fever or chills 5. Overflow incontinence and Constipation secondary to large stone burden; GI recommending magnesium citrate and Dulcolax suppository for bowel regimen; patient will be undergoing EGD this morning 6. Hypertension; stable on Cartia 120 mg daily, metoprolol 150 mg twice a day and lisinopril 2.5 mg daily 7. Hyperlipidemia; Lipitor 10 mg by mouth daily at bedtime 8. Atrial fibrillation; rate controlled on amiodarone, diltiazem 120 mg daily and metoprolol 150 mg twice a day; continue with systemic anticoagulation 9. Hypothyroidism; levothyroxine 175 MCG daily DVT prophylaxis; SCDs/systemic anticoagulation CODE STATUS; full code
[2020-12-07] MEDS: SODIUM CHLORIDE 0.9% 1,000 ML IV SCH (17:40)
--- NOTE | 2020-12-07 18:26 | PN ---
PROGRESS NOTE DATE OF SERVICE: 12/07/2020 REASON FOR FOLLOW UP: Enterococcus faecalis bacteremia, source likely abdominal. INTERVAL HISTORY: Patient is afebrile. The patient is breathing comfortably. Patient denies having any chest pain. No shortness of breath. No cough. No abdominal pain or diarrhea. PHYSICAL EXAMINATION: Blood pressure 91/52 with a pulse of 69, temperature 98.3. He is 100% on 2 L. General description is an elderly male up in the chair in no distress. Respiratory system: Unlabored breathing, clear to auscultation anteriorly. Heart S1, S2. Regular rate and rhythm. ABDOMEN: Soft, mildly distended, no rigidity. LABS: BUN of 22, creatinine is 1.31, white count 9.7. Blood culture repeat has been negative. DIAGNOSTIC IMPRESSION AND PLAN: The patient with Enterococcus faecalis bacteremia, source likely abdominal, as the patient cleared his bacteremia very quickly. ( ) endovascular source was negative. He is on Unasyn. Blood cultures have been negative. Finish therapy with oral Augmentin and close outpatient followup. MMODL / IJN: [id number] /
[2020-12-07] MEDS: ATORVASTATIN 10 MG TAB PO SCH (20:09)
[2020-12-08] MEDS: AMPICILLIN-SULBACTAM 3 GM in SODIUM CHLORIDE 0.9% 100 ML IVPB SCH ×5 (00:01→22:59)
[2020-12-08] MEDS: METOPROLOL TARTRATE 50 MG TAB PO SCH ×3 (00:01→20:51)
[2020-12-08] MEDS: METOCLOPRAMIDE 5 MG/ML 2 ML VIAL IVP SCH ×5 (00:23→22:59)
[2020-12-08] MEDS: LEVOTHYROXINE 75 MCG TAB PO SCH (06:44)
[2020-12-08] MEDS: LEVOTHYROXINE 100 MCG TAB PO SCH (06:44)
[2020-12-08] MEDS: FORMOTEROL FUMARATE 20 MCG/2 ML NEBU INHALATION SCH ×2 (07:51→20:10)
[2020-12-08] MEDS: IPRATROPIUM 0.5 MG/2.5 ML NEBU INHALATION SCH ×4 (07:51→20:10)
[2020-12-08 08:32] LABS: Potassium 3.6 mmol/L (3.5-5.1)
[2020-12-08 09:19] LABS: Basophils # (A) 0.1 k/uL (0-0.2); Basophils % (A) 1 %; Eosinophils # (A) 0.1 k/uL (0-0.7); Eosinophils % (A) 1 %; HCT 37.4 % (39.0-53.0); HGB 12.1 gm/dL (13.0-17.5); Lymphocytes # (A) 0.5 k/uL (1.0-4.8); Lymphocytes % (A) 4 %; MCH 30.6 pg (25.0-35.0); MCHC 32.4 g/dL (31.0-37.0); MCV 94.7 fL (80.0-100.0); Mean Platelet Volume 7.2; Monocytes # (A) 0.5 k/uL (0-1.0); Monocytes % (A) 4 %; Neutrophils % (A) 89 %; Platelet Count 246 k/uL (150-450); RBC 3.95 m/uL (4.30-5.90); RDW 15.2 % (11.5-15.5); WBC 11.2 k/uL (3.8-10.6)
[2020-12-08] MEDS: PANTOPRAZOLE 40 MG TABLET PO SCH ×2 (09:22→20:52)
[2020-12-08] MEDS: AMIODARONE 100 MG TAB PO SCH (09:22)
[2020-12-08] MEDS: FUROSEMIDE 40 MG TAB PO SCH ×2 (09:22→17:51)
[2020-12-08] MEDS: DILTIAZEM CD 120 MG CAP.ER.24H PO SCH (11:14)
--- NOTE | 2020-12-08 12:59 | CDI ---
Documentation Clarification Form Date: 12/08/2020 12:50:22 PM From: Paige Alegria RN, CCDS Admit Date: 12/01/2020 03:56:00 PM Patient Name: Jn Stevenson Visit Number: [id number] ATTENTION: The Clinical Documentation Specialists (CDI) and [facility] Coding Staff appreciate your assistance in clarifying documentation. Please respond to the clarification below the line at the bottom and electronically sign. The CDI & [facility] Coding staff will review the response and follow-up if needed. Please note: Queries are made part of the Legal Health Record. If you have any questions, please contact the author of this message via ITS. Dr. Cooney Your patient has the documented diagnosis of unspecified CHF in the PMH of the H&P and Progress notes. Additional information regarding the type& acuity of CHF is requested. History/Risk Factors: Atrial fib, CHF, DVT, HTN, PE, thyroid CA, DJD Clinical Indicators: 12/01 H&P: "History of atrial fibrillation, history of CHF, history of DVT, hypertension." 12/01 1300 Admission: VS/Pulse OX: temp 99.1, HR 95, RR 16, B/P 98/55, Spo2 92% RA BNP: not checked 12/05 Echocardiogram Results: EF 60-65% 12/01 Chest X Ray: "Correlate for CHF exacerbation as there is cardiomegaly with new central vascular congestion. Findings may be exaggerated by poor inspiration." Treatment: Lasix 40 mg PO BID Lasix 20 mg IVP PRN respiratory Distress (not yet given) Cardizem CD 120mg PO QD Zestril 2.5 mg Po QD Lopressor 150 mg Po BID 12/01 2 L 0.9% NS IVF Bolus ordered In your professional opinion, can you please clarify the [acuity and type] of CHF if known? [ ] Chronic Diastolic Heart Failure (preserved EF) [ ] Chronic Systolic & Diastolic Heart Failure [ ] Other, please specify [ ] (Template Last Revised: July 2020) Unable to determine MTDD
--- NOTE | 2020-12-08 18:26 | PN ---
PROGRESS NOTE DATE OF SERVICE: 12/08/2020 REASON FOR FOLLOWUP: Enterococcus faecalis bacteremia. INTERVAL HISTORY: Patient is afebrile. The patient is breathing comfortably. Denies having any chest pain, shortness of breath or cough. No abdominal pain or diarrhea. PHYSICAL EXAMINATION: Blood pressure 99/66, pulse of 73, temperature 98.2. He is 95% on 3 L. General description is an elderly male up in the chair in no distress. Respiratory system: Unlabored breathing, decreased breath sounds at bases. No wheeze. Heart S1, S2. Regular rate and rhythm. Abdomen soft slightly distended, no guarding or rigidity. Extremities no edema. LABS: Hemoglobin is 12.1, ( ) 9.2, BUN of 21, creatinine 1.24. Blood culture repeat has been negative. DIAGNOSTIC IMPRESSION AND PLAN: Patient with Methicillin susceptible Staphylococcus aureus bacteremia, source likely abdominal. Repeat blood culture has been negative. Patient is on Unasyn, transition to oral Augmentin on discharge and close outpatient followup. MMODL / IJN: [id number] /
--- NOTE | 2020-12-08 19:00 | P.PN ---
Subjective Progress Note Date: 12/08/20 Principal diagnosis: Enterococcus bacteremia, pneumonia, Mr. Cramer is a 75-year-old male with a past medical history of atrial fibrillation, DVT, hypertension, hyperlipidemia, osteoarthritis, PE, thyroid disorder, thyroid cancer, PE, gastritis, depression admitted to the hospital with acute onset of diarrhea. At the time of admission patient was found to have acute kidney injury with ongoing diarrhea and eventually patient was found to have Enterococcus faecalis bacteremia. As a part of workup for bacteremia patient had a CAT scan of the abdomen and pelvis that did not reveal any source of infection but showed basilar pulmonary infiltrates. Patient had increased abdominal distention, x-rays showed colonic ileus and so surgery was consulted. On 12/08/2020- patient is seen and evaluated bedside. He is comfortably sitting in a chair by the bedside appears to be in no acute distress. His is at the bedside. Patient complains of abdominal distention but denies having any nausea or vomiting. Patient denies having any fevers chills or rigors. No chest pain or palpitations. Denies having any cough or difficulty in breathing. On reviewing his vitals temperature 98.2, heart rate 73, respiratory rate 18, blood pressure 99 was 66, saturating at 95% on 3 L of nasal cannula. Patient's medications reviewed-Tylenol, amiodarone, Unasyn, Lipitor, diltiazem, Lasix, albuterol, levothyroxine, Zestril, magnesium, Reglan, Lopressor, Protonix. Objective - Vital Signs Vital signs: Vital Signs Temp 98.7 F 12/08/20 08:46 Pulse 70 12/08/20 11:51 Resp 16 12/08/20 11:28 BP 92/63 12/08/20 11:28 Pulse Ox 96 12/08/20 11:28 Intake & Output 12/07/20 12/08/20 12/08/20 18:59 06:59 18:59 Intake Total 220 Output Total 300 876 Balance -80 -876 Weight 106.5 kg 106.5 kg Intake: Intake, IV Titration 220 Amount Ampicillin-Sulbactam 3 gm 100 In Sodium Chloride 0.9% 100 ml @ 200 mls/hr IVPB Q6HR [facility] Rx#:[id number] Sodium Chloride 0.9% 1, 120 000 ml @ 20 mls/hr IV . Q24H [facility] Rx#:[id number] Output: Urine 300 875 Stool 1 Other: Voiding Method Urinal Urinal # Bowel Movements 1 - Exam CONSTITUTIONAL: Patient appears comfortable , sitting up in a chair by the bedside HEET: Unremarkable, conjunctivae/corneas clear. Sclera anicteric. Oral cavity no lesions. RESPIRATORY: Clear to auscultation bilaterally. CARDIOVASCULAR: S1-S2 appreciated. GASTROINTESTINAL: soft, mildly tender, no organomegaly. Bowel sounds are po sitive. PSYCH: Denies any depression or anxiety. SKIN: No rashes NEUROLOGICAL: alert, oriented x 2, no focal deficits noted. - Labs CBC & Chem 7: 12/08/20 07:36 12/08/20 07:36 Labs: Abnormal Lab Results - Last 24 Hours (Table) 12/08/20 12/08/20 Range/Units 07:36 07:36 WBC 11.2 H (3.8-10.6) k/uL RBC 3.95 L (4.30-5.90) m/uL Hgb 12.1 L (13.0-17.5) gm/dL Hct 37.4 L (39.0-53.0) % Neutrophils # 10.0 H (1.3-7.7) k/uL Lymphocytes # 0.5 L (1.0-4.8) k/uL Sodium 135 L (137-145) mmol/L Chloride 96 L (98-107) mmol/L Carbon Dioxide 33 H (22-30) mmol/L BUN 21 H (9-20) mg/dL Glucose 101 H (74-99) mg/dL Calcium 7.0 L (8.4-10.2) mg/dL Microbiology - Last 24 Hours (Table) 12/03/20 11:58 Blood Culture - Preliminary Blood No Growth after 96 hours Assessment and Plan Assessment: ASSESSMENT Enterococcus faecalis bacteremia Hematemesis - EGD showing mild gastritis Acute kidney injury Colonic ileus Hypertension Hyperlipidemia Atrial fibrillation rate controlled Hypothyroidism PLAN: Patient to be continued on Unasyn for Enterococcus faecalis, ID Dr. Gonzalez following the patient. Patient has colonic ileus, surgery on board patient had a CAT scan of the abdomen and pelvis done yesterday showing no bowel obstruction but ileus conformed. Continue the patient on rest of his home medications. Further recommendations to follow depending on the progress of the patient.
--- NOTE | 2020-12-08 20:42 | P.PN ---
Subjective Progress Note Date: 12/08/20 CHIEF COMPLAINT: Ileus HISTORY OF PRESENT ILLNESS: The patient is a 75-year-old male admitted with change in mental status, ileus, diarrhea and acute kidney injury. His family is at bedside and provides additional history. Patient had 2 months of chronic diarrhea. He was placed in antidiarrheal. He had mental status changes. As a result, he was admitted. Since admission, no further diarrhea. Gen. surgery was consulted for ileus. He reports today he is passing flatus. No reports of nausea and vomiting. He reports having an appetite. ROS: No reports of nausea and vomiting. He had bowel movements. No fevers or chills. No new chest pain. No productive sputum PHYSICAL EXAM: VITAL SIGNS: Reviewed CONSTITUTIONAL: Well developed and in no acute distress. EYES: Conjuctivae without sclera icterus. Extraocular movements grossly intact. HEAD, EARS, NOSE, THROAT: Moist buccal mucosa. Head is atraumatic, normocephalic. Hears conversational speech. No nasal drainage. NECK: Supple. No thyroidomegaly. RESPIRATORY: Non-labored respirations and equal bilateral excursions. CARDIOVASCULAR: Palpable 2+ radial pulses. ABDOMEN: Protuberant. Nontender. Mild distention. MUSCULOSKELETAL: No gross deformity of the lower extremities noted. No clubbing. No cyanosis. SKIN: Good skin turgor. Well perfused. NEUROLOGIC: Cranial nerves II through XII grossly intact. No focal or laterali zing signs. PSYCH: Appropriate affect. Alert and oriented to person. CLINICAL LABS: White blood cell count elevated from 9.7 to 11.2. Creatinine improved from 1.31 to 1.24 STUDIES: CT of the abdomen and pelvis independently reviewed demonstrates no small bowel obstruction. Gaseous distention on the colon. Fat-containing epigastric ventral hernia. IThis my independent interpretation. EGD FINDINGS with hiatal hernia for coffee ground emesis and no active bleeding. Final Pathologic Diagnosis A. DUODENUM, BIOPSY: Benign small bowel mucosa with intact villous architecture. Negative for histopathologic abnormality. B. GASTRIC ANTRUM/BODY, BIOPSY: Minimal chronic gastritis. ASSESSMENT: 1. Colonic ileus 2. Coffee ground emesis 3. Acute kidney injury PLAN: 1. May have a trial of diet 2. No acute surgical intervention at this time Objective - Vital Signs Vital signs: Vital Signs Temp 98.2 F 12/08/20 17:09 Pulse 74 06/14/21 20:21 Resp 18 12/08/20 17:09 BP 99/66 12/08/20 17:09 Pulse Ox 95 12/08/20 17:09 Intake & Output 12/08/20 12/08/20 12/09/20 06:59 18:59 06:59 Output Total 876 150 Balance -876 -150 Weight 106.5 kg 106.5 kg Output: Urine 875 150 Stool 1 Other: Voiding Method Urinal Urinal # Bowel Movements 1 1 - Labs CBC & Chem 7: 12/08/20 07:36 12/08/20 07:36 Labs: Abnormal Lab Results - Last 24 Hours (Table) 12/08/20 12/08/20 Range/Units 07:36 07:36 WBC 11.2 H (3.8-10.6) k/uL RBC 3.95 L (4.30-5.90) m/uL Hgb 12.1 L (13.0-17.5) gm/dL Hct 37.4 L (39.0-53.0) % Neutrophils # 10.0 H (1.3-7.7) k/uL Lymphocytes # 0.5 L (1.0-4.8) k/uL Sodium 135 L (137-145) mmol/L Chloride 96 L (98-107) mmol/L Carbon Dioxide 33 H (22-30) mmol/L BUN 21 H (9-20) mg/dL Glucose 101 H (74-99) mg/dL Calcium 7.0 L (8.4-10.2) mg/dL Microbiology - Last 24 Hours (Table) 12/03/20 11:58 Blood Culture - Preliminary Blood No Growth after 120 hours Assessment and Plan (1) GORDO (acute kidney injury) Current Visit: Yes Status: Acute Code(s): N17.9 - ACUTE KIDNEY FAILURE, UNSPECIFIED SNOMED Code(s): 96595366 (2) Adynamic ileus Current Visit: Yes Status: Acute Code(s): K56.0 - PARALYTIC ILEUS SNOMED Code(s): 02319632 (3) Coffee ground emesis Current Visit: Yes Status: Acute Code(s): K92.0 - HEMATEMESIS SNOMED Code(s): 15583233 (4) Diarrhea Current Visit: Yes Status: Acute Code(s): R19.7 - DIARRHEA, UNSPECIFIED SNOMED Code(s): 14038545 (5) Leukocytosis Current Visit: Yes Status: Acute Code(s): D72.829 - ELEVATED WHITE BLOOD CELL COUNT, UNSPECIFIED SNOMED Code(s): 358505885
[2020-12-08] MEDS: ATORVASTATIN 10 MG TAB PO SCH (20:52)
[2020-12-08] MEDS: SODIUM CHLORIDE 0.9% 1,000 ML IV SCH (20:52)
[2020-12-09] MEDS: LEVOTHYROXINE 100 MCG TAB PO SCH (05:58)
[2020-12-09] MEDS: METOCLOPRAMIDE 5 MG/ML 2 ML VIAL IVP SCH ×4 (05:58→23:05)
[2020-12-09] MEDS: LEVOTHYROXINE 75 MCG TAB PO SCH (05:59)
[2020-12-09] MEDS: AMPICILLIN-SULBACTAM 3 GM in SODIUM CHLORIDE 0.9% 100 ML IVPB SCH ×4 (05:59→23:05)
[2020-12-09 07:22] LABS: Basophils # (A) 0.1 k/uL (0-0.2); Basophils % (A) 1 %; Eosinophils # (A) 0.2 k/uL (0-0.7); Eosinophils % (A) 2 %; HCT 37.5 % (39.0-53.0); HGB 12.3 gm/dL (13.0-17.5); Lymphocytes # (A) 0.4 k/uL (1.0-4.8); Lymphocytes % (A) 4 %; MCH 30.4 pg (25.0-35.0); MCHC 32.8 g/dL (31.0-37.0); MCV 92.6 fL (80.0-100.0); Mean Platelet Volume 7.2; Monocytes # (A) 0.6 k/uL (0-1.0); Monocytes % (A) 4 %; Neutrophils # (A) 11.2 k/uL (1.3-7.7); Neutrophils % (A) 90 %; Platelet Count 261 k/uL (150-450); RBC 4.05 m/uL (4.30-5.90); RDW 14.6 % (11.5-15.5); WBC 12.5 k/uL (3.8-10.6)
[2020-12-09] MEDS: IPRATROPIUM 0.5 MG/2.5 ML NEBU INHALATION SCH ×4 (07:36→19:11)
[2020-12-09] MEDS: FORMOTEROL FUMARATE 20 MCG/2 ML NEBU INHALATION SCH ×2 (07:36→19:11)
[2020-12-09 07:40] LABS: Calcium 7.2 mg/dL (8.4-10.2); Potassium 3.4 mmol/L (3.5-5.1)
--- NOTE | 2020-12-09 09:06 | P.PN ---
Subjective Progress Note Date: 12/09/20 CHIEF COMPLAINT: Ileus HISTORY OF PRESENT ILLNESS: The patient is a 75-year-old male admitted with change in mental status, ileus, diarrhea and acute kidney injury. He reports hunger. He is passing flatus. No abdominal pain. ROS: No fevers or chills. No new chest pain. No productive sputum PHYSICAL EXAM: VITAL SIGNS: Reviewed CONSTITUTIONAL: Well developed and in no acute distress. EYES: Conjuctivae without sclera icterus. Extraocular movements grossly intact. HEAD, EARS, NOSE, THROAT: Moist buccal mucosa. Head is atraumatic, normocephalic. Hears conversational speech. No nasal drainage. NECK: Supple. No thyroidomegaly. RESPIRATORY: Non-labored respirations and equal bilateral excursions. CARDIOVASCULAR: Palpable 2+ radial pulses. ABDOMEN: Protuberant. Nontender. Mild distention. MUSCULOSKELETAL: No gross deformity of the lower extremities noted. No clubbing. No cyanosis. SKIN: Good skin turgor. Well perfused. NEUROLOGIC: Cranial nerves II through XII grossly intact. No focal or lateralizing signs. PSYCH: Appropriate affect. Alert and oriented to person. CLINICAL LABS: Labs pending. ASSESSMENT: 1. Colonic ileus 2. Coffee ground emesis 3. Acute kidney injury PLAN: 1. Heart healthy diet today. Objective - Vital Signs Vital signs: Vital Signs Temp 98.0 F 12/09/20 08:34 Pulse 60 12/09/20 08:34 Resp 20 12/09/20 08:34 BP 102/66 12/09/20 08:34 Pulse Ox 94 L 12/09/20 08:34 Intake & Output 12/08/20 12/09/20 12/09/20 18:59 06:59 18:59 Output Total 150 800 Balance -150 -800 Weight 106.5 kg 101.7 kg Output: Urine 150 800 Other: Voiding Method Urinal Urinal Urinal # Bowel Movements 1 - Labs CBC & Chem 7: 12/09/20 06:54 12/09/20 06:54 Labs: Abnormal Lab Results - Last 24 Hours (Table) 12/08/20 12/09/20 12/09/20 Range/Units 07:36 06:54 06:54 WBC 11.2 H 12.5 H (3.8-10.6) k/uL RBC 3.95 L 4.05 L (4.30-5.90) m/uL Hgb 12.1 L 12.3 L (13.0-17.5) gm/dL Hct 37.4 L 37.5 L (39.0-53.0) % Neutrophils # 10.0 H 11.2 H (1.3-7.7) k/uL Lymphocytes # 0.5 L 0.4 L (1.0-4.8) k/uL Sodium 136 L (137-145) mmol/L Potassium 3.4 L (3.5-5.1) mmol/L Chloride 97 L (98-107) mmol/L Carbon Dioxide 33 H (22-30) mmol/L Creatinine 1.30 H (0.66-1.25) mg/dL Glucose 114 H (74-99) mg/dL Calcium 7.2 L (8.4-10.2) mg/dL Microbiology - Last 24 Hours (Table) 12/03/20 11:58 Blood Culture - Preliminary Blood No Growth after 120 hours Assessment and Plan (1) GORDO (acute kidney injury) Current Visit: Yes Status: Acute Code(s): N17.9 - ACUTE KIDNEY FAILURE, UNSPECIFIED SNOMED Code(s): 37453898 (2) Adynamic ileus Current Visit: Yes Status: Acute Code(s): K56.0 - PARALYTIC ILEUS SNOMED Code(s): 40879413 (3) Coffee ground emesis Current Visit: Yes Status: Acute Code(s): K92.0 - HEMATEMESIS SNOMED Code(s): 69066935 (4) Diarrhea Current Visit: Yes Status: Acute Code(s): R19.7 - DIARRHEA, UNSPECIFIED SNOMED Code(s): 90775935 (5) Leukocytosis Current Visit: Yes Status: Acute Code(s): D72.829 - ELEVATED WHITE BLOOD CELL COUNT, UNSPECIFIED SNOMED Code(s): 784908193
[2020-12-09] MEDS: METOPROLOL TARTRATE 50 MG TAB PO SCH ×2 (10:04→20:09)
[2020-12-09] MEDS: PANTOPRAZOLE 40 MG TABLET PO SCH ×2 (10:05→20:12)
[2020-12-09] MEDS: FUROSEMIDE 40 MG TAB PO SCH ×2 (10:05→17:58)
[2020-12-09] MEDS: AMIODARONE 100 MG TAB PO SCH (10:05)
[2020-12-09] MEDS: DILTIAZEM CD 120 MG CAP.ER.24H PO SCH (10:05)
[2020-12-09] MEDS: SODIUM CHLORIDE 0.9% 1,000 ML IV SCH (18:01)
--- NOTE | 2020-12-09 19:38 | PN ---
PROGRESS NOTE DATE OF SERVICE: 12/09/2020 REASON FOR FOLLOW UP: Enterococcus faecalis bacteremia, abdominal source. INTERVAL HISTORY: Patient is currently afebrile. The patient is breathing comfortably. Denies having any chest pain, shortness of breath or cough. No nausea, vomiting or diarrhea. PHYSICAL EXAMINATION: Blood pressure 129/57, pulse of 62, temperature 98.2. He is 93% on room air. General description: The patient is an elderly male up in the chair in no distress. Respiratory system: Unlabored breathing. Decreased intensity of breath sounds. No wheeze. Heart S1, S2. Regular rate and rhythm. Abdomen soft. Mildly distended. No guarding. No rigidity. Extremities: No edema of the feet. LABS: Hemoglobin is 12.8, white count 8.5. BUN of 20, creatinine 1.30. Blood culture repeat has been negative. DIAGNOSTIC IMPRESSION AND PLAN: Patient with enterococcus faecalis bacteremia secondary to abdominal source in this patient has cleared his bacteremia very quickly. Did have evidence of coffee-grounds emesis and also with evidence of ileus. The patient is covered with Unasyn to continue. Transition to oral Augmentin on discharge and close outpatient followup. MMODL / IJN: [id number] /
[2020-12-09] MEDS: ATORVASTATIN 10 MG TAB PO SCH (20:12)
[2020-12-10] MEDS: METOCLOPRAMIDE 5 MG/ML 2 ML VIAL IVP SCH ×3 (06:34→17:35)
[2020-12-10] MEDS: LEVOTHYROXINE 75 MCG TAB PO SCH (06:35)
[2020-12-10] MEDS: AMPICILLIN-SULBACTAM 3 GM in SODIUM CHLORIDE 0.9% 100 ML IVPB SCH ×3 (06:35→17:59)
[2020-12-10] MEDS: LEVOTHYROXINE 100 MCG TAB PO SCH (06:35)
[2020-12-10 08:02] LABS: Basophils # (A) 0.1 k/uL (0-0.2); Basophils % (A) 1 %; Eosinophils # (A) 0.2 k/uL (0-0.7); Eosinophils % (A) 2 %; HCT 38.6 % (39.0-53.0); HGB 12.8 gm/dL (13.0-17.5); Lymphocytes # (A) 0.6 k/uL (1.0-4.8); Lymphocytes % (A) 5 %; MCH 30.7 pg (25.0-35.0); MCHC 33.2 g/dL (31.0-37.0); MCV 92.5 fL (80.0-100.0); Mean Platelet Volume 7.2; Monocytes # (A) 0.5 k/uL (0-1.0); Monocytes % (A) 4 %; Neutrophils # (A) 10.9 k/uL (1.3-7.7); Neutrophils % (A) 89 %; Platelet Count 292 k/uL (150-450); RBC 4.17 m/uL (4.30-5.90); RDW 14.7 % (11.5-15.5); WBC 12.2 k/uL (3.8-10.6)
[2020-12-10 08:19] LABS: Calcium 7.5 mg/dL (8.4-10.2); Potassium 3.4 mmol/L (3.5-5.1)
[2020-12-10] MEDS: FUROSEMIDE 40 MG TAB PO SCH ×3 (08:34→18:10)
[2020-12-10] MEDS: AMIODARONE 100 MG TAB PO SCH (08:35)
[2020-12-10] MEDS: DILTIAZEM CD 120 MG CAP.ER.24H PO SCH (08:35)
[2020-12-10] MEDS: PANTOPRAZOLE 40 MG TABLET PO SCH ×2 (08:35→20:47)
[2020-12-10] MEDS: IPRATROPIUM 0.5 MG/2.5 ML NEBU INHALATION SCH ×4 (08:59→21:21)
[2020-12-10] MEDS: FORMOTEROL FUMARATE 20 MCG/2 ML NEBU INHALATION SCH ×2 (08:59→21:21)
[2020-12-10] MEDS: METOPROLOL TARTRATE 50 MG TAB PO SCH ×3 (10:14→20:50)
[2020-12-10 11:03] VITALS: BMI 35.9
[2020-12-10] MEDS ORDERED: FUROSEMIDE 10 MG/ML 2 ML VIAL IV ONE (11:54)
[2020-12-10] MEDS ORDERED: POTASSIUM CHLORIDE ER 20 MEQ TAB.ER PO STA (11:56)
[2020-12-10 13:08] VITALS: TEMP 97.8
--- NOTE | 2020-12-10 15:24 | PN ---
PROGRESS NOTE DATE OF SERVICE: 12/10/2020. REASON FOR FOLLOWUP: Enterococcus faecalis bacteremia. INTERVAL HISTORY: Patient is afebrile. The patient is breathing comfortably. The patient denies having any chest pain, shortness of breath or cough. Denies any abdominal pain and no diarrhea. PHYSICAL EXAMINATION: Blood pressure 123/54 with a pulse of 79, temperature is 97.8. He is 94% on room air. General description: The patient is an elderly male up in the chair in no distress. Respiratory system: Unlabored breathing, decreased intensity in breath sounds. No wheeze. Heart S1, S2. Regular rate and rhythm. ABDOMEN: Soft, mildly distended. No guarding. No rigidity. LABS: Hemoglobin is 12.1, white count 12.2, BUN of 19, creatinine 1.38. Blood culture repeat has been negative. DIAGNOSTIC IMPRESSION AND PLAN: Patient with Enterococcus faecalis bacteremia, source is likely abdominal. Repeat blood culture has been negative. Patient is on Unasyn. Transition to oral Augmentin on discharge and close outpatient followup. MMODL / IJN: [id number] /
[2020-12-10] MEDS: SODIUM CHLORIDE 0.9% 1,000 ML IV SCH (17:35)
[2020-12-10] MEDS: ATORVASTATIN 10 MG TAB PO SCH (20:46)
--- NOTE | 2020-12-10 21:00 | P.PN ---
Subjective Progress Note Date: 12/10/20 CHIEF COMPLAINT: Ileus HISTORY OF PRESENT ILLNESS: The patient is a 75-year-old male admitted with history of ileus. He tolerated diet. He is passing flatus and had a problem today. He feels well. ROS: No fevers or chills. No new chest pain. No productive sputum. Having bowel movements PHYSICAL EXAM: VITAL SIGNS: Reviewed CONSTITUTIONAL: Well developed and in no acute distress. EYES: Conjuctivae without sclera icterus. Extraocular movements grossly intact. HEAD, EARS, NOSE, THROAT: Moist buccal mucosa. Head is atraumatic, normocephalic. Hears conversational speech. No nasal drainage. RESPIRATORY: Non-labored respirations and equal bilateral excursions. CARDIOVASCULAR: Palpable 2+ radial pulses. ABDOMEN: Protuberant. No peritonitis MUSCULOSKELETAL: No gross deformity of the lower extremities noted. No clubbing. No cyanosis. SKIN: Good skin turgor. Well perfused. NEUROLOGIC: Cranial nerves II through XII grossly intact. No focal or lateralizing signs. PSYCH: Appropriate affect. Alert and oriented to person. CLINICAL LABS: Labs pending. ASSESSMENT: 1. Colonic ileus 2. Coffee ground emesis 3. Acute kidney injury PLAN: 1. Clinically his symptoms has improved. 2. Patient is stable for discharge once medically stable. Objective - Vital Signs Vital signs: Vital Signs Temp 97.8 F 12/10/20 12:00 Pulse 81 12/10/20 17:37 Resp 18 12/10/20 17:37 BP 120/62 12/10/20 17:37 Pulse Ox 93 L 12/10/20 17:37 Intake & Output 12/10/20 12/10/20 12/11/20 06:59 18:59 06:59 Intake Total 420 940 Output Total 727 252 Balance -307 688 Weight 107 kg 107 kg Intake: Intake, IV Titration 180 Amount Sodium Chloride 0.9% 1, 180 000 ml @ 20 mls/hr IV . Q24H [facility] Rx#:[id number] Oral 240 940 Output: Urine 725 250 Stool 2 2 Other: Voiding Method Urinal Urinal # Voids 1 - Labs CBC & Chem 7: 12/10/20 07:35 12/10/20 07:35 Labs: Abnormal Lab Results - Last 24 Hours (Table) 12/10/20 12/10/20 Range/Units 07:35 07:35 WBC 12.2 H (3.8-10.6) k/uL RBC 4.17 L (4.30-5.90) m/uL Hgb 12.8 L (13.0-17.5) gm/dL Hct 38.6 L (39.0-53.0) % Neutrophils # 10.9 H (1.3-7.7) k/uL Lymphocytes # 0.6 L (1.0-4.8) k/uL Sodium 136 L (137-145) mmol/L Potassium 3.4 L (3.5-5.1) mmol/L Chloride 96 L (98-107) mmol/L Carbon Dioxide 32 H (22-30) mmol/L Creatinine 1.38 H (0.66-1.25) mg/dL Glucose 191 H (74-99) mg/dL Calcium 7.5 L (8.4-10.2) mg/dL Assessment and Plan (1) GORDO (acute kidney injury) Current Visit: Yes Status: Acute Code(s): N17.9 - ACUTE KIDNEY FAILURE, UNSPECIFIED SNOMED Code(s): 54806950 (2) Adynamic ileus Current Visit: Yes Status: Acute Code(s): K56.0 - PARALYTIC ILEUS SNOMED Code(s): 40513959 (3) Coffee ground emesis Current Visit: Yes Status: Acute Code(s): K92.0 - HEMATEMESIS SNOMED Code(s): 46196128 (4) Diarrhea Current Visit: Yes Status: Acute Code(s): R19.7 - DIARRHEA, UNSPECIFIED SNOMED Code(s): 23245159 (5) Leukocytosis Current Visit: Yes Status: Acute Code(s): D72.829 - ELEVATED WHITE BLOOD CELL COUNT, UNSPECIFIED SNOMED Code(s): 729764195
--- NOTE | 2020-12-10 23:36 | P.PN ---
Subjective Progress Note Date: 12/09/20 Principal diagnosis: Enterococcus bacteremia, pneumonia, ileus Mr. Cramer is a 75-year-old male with a past medical history of atrial fibrillation, DVT, hypertension, hyperlipidemia, osteoarthritis, PE, thyroid disorder, thyroid cancer, PE, gastritis, depression admitted to the hospital with acute onset of diarrhea. At the time of admission patient was found to have acute kidney injury with ongoing diarrhea and eventually patient was found to have Enterococcus faecalis bacteremia. As a part of workup for bacteremia patient had a CAT scan of the abdomen and pelvis that did not reveal any source of infection but showed basilar pulmonary infiltrates. Patient had increased abdominal distention, x-rays showed colonic ileus and so surgery was consulted. On 12/08/2020- patient is seen and evaluated bedside. He is comfortably sitting in a chair by the bedside appears to be in no acute distress. His is at the bedside. Patient complains of abdominal distention but denies having any nausea or vomiting. Patient denies having any fevers chills or rigors. No shukri st pain or palpitations. Denies having any cough or difficulty in breathing. On reviewing his vitals temperature 98.2, heart rate 73, respiratory rate 18, blood pressure 99 was 66, saturating at 95% on 3 L of nasal cannula. 12/09/2020 Patient is currently lying in the bed comfortably. Denied any complaints of abdominal pain. Distention is improving. Able to pass flatus. Diet advanced to heart healthy diet. Otherwise patient is being continued antibiotics in the form of Unasyn for Enterococcus faecalis bacteremia. Patient has been afebrile. No chest pain or shortness breath. No cough or sputum production. Laboratory showed WBC 12.5 hemoglobin 12.3 sodium 136 potassium 3.4 chloride 97 bicarb is 33 BUN 20 and creatinine 1.3 and calcium level is 72 Patient's medications reviewed-Tylenol, amiodarone, Unasyn, Lipitor, diltiazem, Lasix, albuterol, levothyroxine, Zestril, magnesium, Reglan, Lopressor, Protonix. Objective - Vital Signs Vital signs: Vital Signs Temp 98.1 F 12/09/20 12:16 Pulse 74 12/09/20 15:51 Resp 18 12/09/20 12:16 BP 108/62 12/09/20 12:16 Pulse Ox 94 L 12/09/20 12:16 Intake & Output 12/08/20 12/09/20 12/09/20 18:59 06:59 18:59 Intake Total 240 Output Total 150 800 450 Balance -150 -800 -210 Weight 106.5 kg 101.7 kg Intake: Oral 240 Output: Urine 150 800 450 Other: Voiding Method Urinal Urinal Urinal # Bowel Movements 1 - Exam CONSTITUTIONAL: Patient appears comfortable , sitting up in a chair by the bedside HEET: Unremarkable, conjunctivae/corneas clear. Sclera anicteric. Oral cavity no lesions. RESPIRATORY: Clear to auscultation bilaterally. CARDIOVASCULAR: S1-S2 appreciated. GASTROINTESTINAL: soft, mildly tender, no organomegaly. Bowel sounds are positive. PSYCH: Denies any depression or anxiety. SKIN: No rashes NEUROLOGICAL: alert, oriented x 2, no focal deficits noted. - Labs CBC & Chem 7: 12/10/20 07:35 12/10/20 07:35 Labs: Abnormal Lab Results - Last 24 Hours (Table) 12/09/20 12/09/20 Range/Units 06:54 06:54 WBC 12.5 H (3.8-10.6) k/uL RBC 4.05 L (4.30-5.90) m/uL Hgb 12.3 L (13.0-17.5) gm/dL Hct 37.5 L (39.0-53.0) % Neutrophils # 11.2 H (1.3-7.7) k/uL Lymphocytes # 0.4 L (1.0-4.8) k/uL Sodium 136 L (137-145) mmol/L Potassium 3.4 L (3.5-5.1) mmol/L Chloride 97 L (98-107) mmol/L Carbon Dioxide 33 H (22-30) mmol/L Creatinine 1.30 H (0.66-1.25) mg/dL Glucose 114 H (74-99) mg/dL Calcium 7.2 L (8.4-10.2) mg/dL Microbiology - Last 24 Hours (Table) 12/03/20 11:58 Blood Culture - Final Blood No Growth after 144 hours Assessment and Plan Assessment: Enterococcus faecalis bacteremia Hematemesis - EGD showing mild gastritis Acute kidney injury Colonic ileus Hypertension Hyperlipidemia Atrial fibrillation rate controlled Hypothyroidism PLAN: Patient to be continued on Unasyn for Enterococcus faecalis, ID Dr. Gonzalez following the patient. Patient has colonic ileus, surgery on board patient had a CAT scan of the abdomen and pelvis done showing no bowel obstruction but ileus conformed. Continue the patient on rest of his home medications. Further recommendations to follow depending on the progress of the patient. Time with Patient: Greater than 30
--- NOTE | 2020-12-10 23:40 | P.PN ---
Subjective Progress Note Date: 12/10/20 Principal diagnosis: Enterococcus bacteremia, pneumonia, ileus Mr. Cramer is a 75-year-old male with a past medical history of atrial fibrillation, DVT, hypertension, hyperlipidemia, osteoarthritis, PE, thyroid disorder, thyroid cancer, PE, gastritis, depression admitted to the hospital with acute onset of diarrhea. At the time of admission patient was found to have acute kidney injury with ongoing diarrhea and eventually patient was found to have Enterococcus faecalis bacteremia. As a part of workup for bacteremia patient had a CAT scan of the abdomen and pelvis that did not reveal any source of infection but showed basilar pulmonary infiltrates. Patient had increased abdominal distention, x-rays showed colonic ileus and so surgery was consulted. On 12/08/2020- patient is seen and evaluated bedside. He is comfortably sitting in a chair by the bedside appears to be in no acute distress. His is at the bedside. Patient complains of abdominal distention but denies having any nausea or vomiting. Patient denies having any fevers chills or rigors. No shukri st pain or palpitations. Denies having any cough or difficulty in breathing. On reviewing his vitals temperature 98.2, heart rate 73, respiratory rate 18, blood pressure 99 was 66, saturating at 95% on 3 L of nasal cannula. 12/09/2020 Patient is currently lying in the bed comfortably. Denied any complaints of abdominal pain. Distention is improving. Able to pass flatus. Diet advanced to heart healthy diet. Otherwise patient is being continued antibiotics in the form of Unasyn for Enterococcus faecalis bacteremia. Patient has been afebrile. No chest pain or shortness breath. No cough or sputum production. Laboratory showed WBC 12.5 hemoglobin 12.3 sodium 136 potassium 3.4 chloride 97 bicarb is 33 BUN 20 and creatinine 1.3 and calcium level is 72 12/10/2020 Patient is currently sitting on the side of the bed. No complaints of chest pain. Patient has been walking in the hallway with PT. Complains of shortness of breath. Patient has bibasilar crackles noted. Was given a dose of IV Lasix today afternoon. Monitor renal function. Otherwise patient is tolerating oral diet. Did have a bowel movement today. Abdominal distention is much improved. No complaints of chest pain. No dysuria or hematuria. Follow-up chest x-ray tomorrow. Laboratory showed WBC 12.2 hemoglobin 12.8 sodium 136 potassium 3.4 chloride 96 BUN 19 and creatinine 1.38 calcium 7.5 Patient's medications reviewed-Tylenol, amiodarone, Unasyn, Lipitor, diltiazem, Lasix, albuterol, levothyroxine, Zestril, magnesium, Reglan, Lopressor, Protonix. Objective - Vital Signs Vital signs: Vital Signs Temp 97.8 F 12/10/20 12:00 Pulse 80 12/10/20 21:39 Resp 18 12/10/20 20:00 BP 104/63 12/10/20 20:00 Pulse Ox 97 12/10/20 20:00 Intake & Output 12/10/20 12/10/20 12/11/20 06:59 18:59 06:59 Intake Total 420 940 Output Total 727 252 Balance -307 688 Weight 107 kg 107 kg Intake: Intake, IV Titration 180 Amount Sodium Chloride 0.9% 1, 180 000 ml @ 20 mls/hr IV . Q24H [facility] Rx#:[id number] Oral 240 940 Output: Urine 725 250 Stool 2 2 Other: Voiding Method Urinal Urinal Urinal # Voids 1 - Exam CONSTITUTIONAL: Patient appears comfortable , sitting up in a chair by the bedside HEET: Unremarkable, conjunctivae/corneas clear. Sclera anicteric. Oral cavity no lesions. RESPIRATORY: Bibasilar crackles. Nonlabored breathing. No wheezing.. CARDIOVASCULAR: S1-S2 appreciated. GASTROINTESTINAL: soft, mildly tender, no organomegaly. Bowel sounds are positive. PSYCH: Denies any depression or anxiety. SKIN: No rashes NEUROLOGICAL: alert, oriented x 2, no focal deficits noted. - Labs CBC & Chem 7: 12/10/20 07:35 12/10/20 07:35 Labs: Abnormal Lab Results - Last 24 Hours (Table) 12/10/20 12/10/20 Range/Units 07:35 07:35 WBC 12.2 H (3.8-10.6) k/uL RBC 4.17 L (4.30-5.90) m/uL Hgb 12.8 L (13.0-17.5) gm/dL Hct 38.6 L (39.0-53.0) % Neutrophils # 10.9 H (1.3-7.7) k/uL Lymphocytes # 0.6 L (1.0-4.8) k/uL Sodium 136 L (137-145) mmol/L Potassium 3.4 L (3.5-5.1) mmol/L Chloride 96 L (98-107) mmol/L Carbon Dioxide 32 H (22-30) mmol/L Creatinine 1.38 H (0.66-1.25) mg/dL Glucose 191 H (74-99) mg/dL Calcium 7.5 L (8.4-10.2) mg/dL Assessment and Plan Assessment: Enterococcus faecalis bacteremia Hematemesis - EGD showing mild gastritis Acute kidney injury Colonic ileus Hypertension Hyperlipidemia Atrial fibrillation rate controlled Hypothyroidism PLAN: Patient to be continued on Unasyn for Enterococcus faecalis, ID Dr. Gonzalez following the patient. Patient has colonic ileus, surgery on board patient had a CAT scan of the abdomen and pelvis done showing no bowel obstruction but ileus conformed. Patient was started on heart healthy diet. Tolerating well. Monitor renal function and follow-up chest x-ray tomorrow.Continue with PT OT and possible discharge once clinically improved. Continue the patient on rest of his home medications. Further recommendations to follow depending on the progress of the patient. Time with Patient: Greater than 30
[2020-12-11] MEDS: METOCLOPRAMIDE 5 MG/ML 2 ML VIAL IVP SCH ×6 (00:40→16:08)
[2020-12-11] MEDS: LEVOTHYROXINE 75 MCG TAB PO SCH (06:40)
[2020-12-11] MEDS: LEVOTHYROXINE 100 MCG TAB PO SCH (06:40)
--- NOTE | 2020-12-11 08:04 | XR ---
EXAMINATION TYPE: XR chest 1V DATE OF EXAM: 12/11/2020 COMPARISON: Chest x-ray 12/01/2020 HISTORY: Difficulty breathing, shortness of breath TECHNIQUE: Single frontal view of the chest is obtained. FINDINGS: Patient is post left atrial appendage clip placement, cardiac valve replacement. There is no evident pneumothorax or pleural effusion. Interstitium is increased. Heart appears enlarged althou gh patient is rotated. Aorta is dense. Lung volumes are low. There may be eventration of the right he midiaphragm. Patchy basilar density is noted. Central vascularity appears less prominently. IMPRESSION: Suspect improvement in patient's volume status. Probable basilar atelectasis, cardiomega ly. Expiratory rotated exam. Follow-up suggested as indicated.
[2020-12-11] MEDS: METOPROLOL TARTRATE 50 MG TAB PO SCH ×2 (08:14→20:05)
[2020-12-11] MEDS: POTASSIUM CHLORIDE ER 20 MEQ TAB.ER PO SCH (08:16)
[2020-12-11] MEDS: DILTIAZEM CD 120 MG CAP.ER.24H PO SCH (08:16)
[2020-12-11] MEDS: AMIODARONE 100 MG TAB PO SCH (08:16)
[2020-12-11] MEDS: FUROSEMIDE 40 MG TAB PO SCH ×2 (08:16→16:10)
[2020-12-11] MEDS: PANTOPRAZOLE 40 MG TABLET PO SCH ×2 (08:16→20:05)
[2020-12-11] MEDS: IPRATROPIUM 0.5 MG/2.5 ML NEBU INHALATION SCH ×4 (08:26→19:12)
[2020-12-11] MEDS: FORMOTEROL FUMARATE 20 MCG/2 ML NEBU INHALATION SCH ×2 (08:26→19:12)
[2020-12-11 08:32] LABS: Basophils % (A) 0 %; Eosinophils # (A) 0.2 k/uL (0-0.7); Eosinophils % (A) 1 %; HCT 39.5 % (39.0-53.0); HGB 12.6 gm/dL (13.0-17.5); Lymphocytes # (A) 0.5 k/uL (1.0-4.8); Lymphocytes % (A) 4 %; MCH 29.9 pg (25.0-35.0); MCV 93.2 fL (80.0-100.0); Mean Platelet Volume 7.5; Monocytes # (A) 0.4 k/uL (0-1.0); Monocytes % (A) 3 %; Neutrophils # (A) 10.5 k/uL (1.3-7.7); Neutrophils % (A) 90 %; Platelet Count 297 k/uL (150-450); RBC 4.24 m/uL (4.30-5.90); RDW 15.2 % (11.5-15.5); WBC 11.6 k/uL (3.8-10.6)
[2020-12-11 08:45] LABS: Calcium 7.7 mg/dL (8.4-10.2); Potassium 3.5 mmol/L (3.5-5.1)
[2020-12-11] MEDS ORDERED: POTASSIUM CHLORIDE ER 20 MEQ TAB.ER PO STA (09:35)
[2020-12-11] MEDS: SODIUM CHLORIDE 0.9% 1,000 ML IV SCH (15:57)
[2020-12-11] MEDS: AMPICILLIN-SULBACTAM 3 GM in SODIUM CHLORIDE 0.9% 100 ML IVPB SCH (16:08)
--- NOTE | 2020-12-11 18:51 | PN ---
PROGRESS NOTE DATE OF SERVICE: 12/11/2020 REASON FOR FOLLOW UP: Enterococcus faecalis bacteremia. INTERVAL HISTORY: Patient is afebrile. He is breathing comfortably. Denies having any chest pain. Occasional cough. No abdominal pain or diarrhea. PHYSICAL EXAMINATION: Blood pressure ( ), pulse ( ), temperature 97.8. General description is an elderly male up in the chair in no distress. Respiratory system: Unlabored breathing, decreased breath sounds. No wheeze. Heart S1, S2. Regular rate and rhythm. Abdomen soft, mildly distended. Extremities: 1+ edema of the feet. LABS: Hemoglobin 12.2, WBC 11.7, BUN of 18, creatinine 1.3. DIAGNOSTIC IMPRESSION AND PLAN: Patient with Enterococcus faecalis bacteremia, outpatient course with bacteremia, source likely abdominal. Repeat blood culture negative. ( ) continue. Transition to oral Augmentin for about a week. Close outpatient followup. MMODL / IJN: [id number] /
[2020-12-11] MEDS: ATORVASTATIN 10 MG TAB PO SCH (20:05)
[2020-12-12] MEDS: AMPICILLIN-SULBACTAM 3 GM in SODIUM CHLORIDE 0.9% 100 ML IVPB SCH ×3 (00:11→11:52)
[2020-12-12] MEDS: METOCLOPRAMIDE 5 MG/ML 2 ML VIAL IVP SCH ×3 (00:12→11:53)
[2020-12-12] MEDS: LEVOTHYROXINE 100 MCG TAB PO SCH (06:28)
[2020-12-12] MEDS: LEVOTHYROXINE 75 MCG TAB PO SCH (06:28)
[2020-12-12] MEDS: IPRATROPIUM 0.5 MG/2.5 ML NEBU INHALATION SCH ×2 (07:42→11:05)
[2020-12-12] MEDS: FORMOTEROL FUMARATE 20 MCG/2 ML NEBU INHALATION SCH (07:42)
[2020-12-12] MEDS: DILTIAZEM CD 120 MG CAP.ER.24H PO SCH (08:09)
[2020-12-12] MEDS: METOPROLOL TARTRATE 50 MG TAB PO SCH (08:10)
[2020-12-12] MEDS: FUROSEMIDE 40 MG TAB PO SCH (08:10)
[2020-12-12] MEDS: POTASSIUM CHLORIDE ER 20 MEQ TAB.ER PO SCH (08:10)
[2020-12-12] MEDS: AMIODARONE 100 MG TAB PO SCH (08:10)
[2020-12-12] MEDS: PANTOPRAZOLE 40 MG TABLET PO SCH (08:10)
[2020-12-12 08:29] VITALS: RESP 16
[2020-12-12 11:58] VITALS: BP 99/63; PULSE 67
--- NOTE | 2020-12-12 13:13 | P.PN ---
Subjective Progress Note Date: 12/11/20 CHIEF COMPLAINT: Ileus HISTORY OF PRESENT ILLNESS: The patient is a 75-year-old male admitted with history of ileus. He reports tolerating diet. He is having bowel movements. No fevers or chills. ROS: No fevers or chills. No new chest pain. Having bowel movements PHYSICAL EXAM: VITAL SIGNS: Reviewed CONSTITUTIONAL: Well developed and in no acute distress. EYES: Conjuctivae without sclera icterus. Extraocular movements grossly intact. HEAD, EARS, NOSE, THROAT: Moist buccal mucosa. Head is atraumatic, normocephalic. Hears conversational speech. No nasal drainage. RESPIRATORY: Non-labored respirations and equal bilateral excursions. CARDIOVASCULAR: Palpable 2+ radial pulses. ABDOMEN: Nontender abdomen. Mild distention. MUSCULOSKELETAL: No gross deformity of the lower extremities noted. No clubbing. No cyanosis. SKIN: Good skin turgor. Well perfused. NEUROLOGIC: Cranial nerves II through XII grossly intact. No focal or lateralizing signs. PSYCH: Appropriate affect. Alert and oriented to person. CLINICAL LABS: WBC improved from 12.6-11.6 ASSESSMENT: 1. Colonic ileus PLAN: 1. Continue diet as tolerated. Objective - Vital Signs Vital signs: Vital Signs Temp 97.8 F 12/12/20 04:00 Pulse 67 12/12/20 11:57 Resp 16 12/12/20 11:57 BP 99/63 12/12/20 11:57 Pulse Ox 97 12/12/20 11:57 Intake & Output 12/11/20 12/12/20 12/12/20 18:59 06:59 18:59 Intake Total 1440 358 Output Total 2 Balance 1440 -2 358 Weight 103.1 kg Intake: Intake, IV Titration 0 Amount IV Fluid Continuation 1, 0 000 ml @ 0 mls/hr IV .[facility] -[facility] Rx#:[id number] Oral 1440 358 Output: Stool 2 Other: Voiding Method Urinal Urinal Urinal # Voids 1 1 # Bowel Movements 1 1 1 - Labs CBC & Chem 7: 12/11/20 07:26 12/11/20 07:26 Assessment and Plan (1) GORDO (acute kidney injury) Current Visit: Yes Status: Acute Code(s): N17.9 - ACUTE KIDNEY FAILURE, UNSPECIFIED SNOMED Code(s): 46102542 (2) Adynamic ileus Current Visit: Yes Status: Acute Code(s): K56.0 - PARALYTIC ILEUS SNOMED Code(s): 03669839 (3) Coffee ground emesis Current Visit: Yes Status: Acute Code(s): K92.0 - HEMATEMESIS SNOMED Code (s): 23677726 (4) Diarrhea Current Visit: Yes Status: Acute Code(s): R19.7 - DIARRHEA, UNSPECIFIED SNOMED Code(s): 99292167 (5) Leukocytosis Current Visit: Yes Status: Acute Code(s): D72.829 - ELEVATED WHITE BLOOD CELL COUNT, UNSPECIFIED SNOMED Code(s): 854183039
--- NOTE | 2020-12-12 13:13 | P.PN ---
Subjective Progress Note Date: 12/12/20 CHIEF COMPLAINT: Ileus HISTORY OF PRESENT ILLNESS: The patient is a 75-year-old male admitted with history of ileus. He is eager to go home. No reports of abdominal pain. He is tolerating diet. ROS: No fevers or chills. No new chest pain. PHYSICAL EXAM: VITAL SIGNS: Reviewed CONSTITUTIONAL: Well developed and in no acute distress. EYES: Conjuctivae without sclera icterus. Extraocular movements grossly intact. HEAD, EARS, NOSE, THROAT: Moist buccal mucosa. Head is atraumatic, normocephal ic. Hears conversational speech. No nasal drainage. RESPIRATORY: Non-labored respirations and equal bilateral excursions. CARDIOVASCULAR: Palpable 2+ radial pulses. ABDOMEN: Nontender abdomen. Mild distention. MUSCULOSKELETAL: No gross deformity of the lower extremities noted. No clubbing. No cyanosis. SKIN: Good skin turgor. Well perfused. NEUROLOGIC: Cranial nerves II through XII grossly intact. No focal or lateralizing signs. PSYCH: Appropriate affect. Alert and oriented to person. CLINICAL LABS: Labs pending. ASSESSMENT: 1. Colonic ileus PLAN: 1. Patient stable from surgical standpoint for discharge Objective - Vital Signs Vital signs: Vital Signs Temp 97.8 F 12/12/20 04:00 Pulse 67 12/12/20 11:57 Resp 16 12/12/20 11:57 BP 99/63 12/12/20 11:57 Pulse Ox 97 12/12/20 11:57 Intake & Output 12/11/20 12/12/20 12/12/20 18:59 06:59 18:59 Intake Total 1440 358 Output Total 2 Balance 1440 -2 358 Weight 103.1 kg Intake: Intake, IV Titration 0 Amount IV Fluid Continuation 1, 0 000 ml @ 0 mls/hr IV .STK -[facility] Rx#:[id number] Oral 1440 358 Output: Stool 2 Other: Voiding Method Urinal Urinal Urinal # Voids 1 1 # Bowel Movements 1 1 1 - Labs CBC & Chem 7: 12/11/20 07:26 12/11/20 07:26 Assessment and Plan (1) GORDO (acute kidney injury) Current Visit: Yes Status: Acute Code(s): N17.9 - ACUTE KIDNEY FAILURE, UNSPECIFIED SNOMED Code(s): 27837604 (2) Adynamic ileus Current Visit: Yes Status: Acute Code(s): K56.0 - PARALYTIC ILEUS SNOMED Code(s): 66760012 (3) Coffee ground emesis Current Visit: Yes Status: Acute Code(s): K92.0 - HEMATEMESIS SNOMED Code(s): 32906010 (4) Diarrhea Current Visit: Yes Status: Acute Code(s): R19.7 - DIARRHEA, UNSPECIFIED SNOMED Code(s): 34284181 (5) Leukocytosis Current Visit: Yes Status: Acute Code(s): D72.829 - ELEVATED WHITE BLOOD CELL COUNT, UNSPECIFIED SNOMED Code(s): 413761879
--- NOTE | 2020-12-12 16:31 | PN ---
PROGRESS NOTE DATE OF SERVICE: 12/12/2020 REASON FOR FOLLOWUP: Enterococcus faecalis bacteremia, possible abdominal source. INTERVAL HISTORY: Patient is afebrile. The patient is breathing comfortably. The patient denies having any chest pain, shortness of breath or cough. No nausea, vomiting, abdominal pain or diarrhea. PHYSICAL EXAMINATION: Blood pressure is 99/63 with a pulse of 77, temperature is 97.8. He is 97% on room air. General description is an elderly male up in the chair in no distress. Respiratory system: Unlabored breathing, decreased breath sounds at bases, no wheeze. Heart S1, S2. Regular rate and rhythm. Abdomen is soft, mildly distended. No guarding or rigidity. LABS: Hemoglobin is 12.1, white count 11.6, BUN of 18, creatinine 1.31. Blood culture repeat has been negative. DIAGNOSTIC IMPRESSION AND PLAN: Patient with Enterococcus faecalis bacteremia, source abdominal. Overall improvement. Repeat blood culture negative. The patient to finish therapy with oral Augmentin. Advised to follow up in the office in a week after completion of the antibiotic. At that point, will repeat his blood cultures to make sure no recurrence of his bacteremia. MMODL / IJN: [id number] /
--- NOTE | 2020-12-15 13:05 | CDI ---
Documentation Clarification Form Date: 12/15/20 From: Jane Levin Admit Date: 12/01/2020 03:56:00 PM Patient Name: Jn Stevenson Visit Number: [id number] Discharge Date: 12/12/2020 01:35:00 PM ATTENTION: The Clinical Documentation Specialists (CDI) and [facility] Coding Staff appreciate your assistance in clarifying documentation. Please respond to the clarification below the line at the bottom and electronically sign. The CDI & [facility] Coding staff will review the response and follow-up if needed. Please note: Queries are made part of the Legal Health Record. If you have any questions, please contact the author of this message via ITS. Dr. Stoney Parekh, Atrial Fibrillation is documented in the past medical history in the ED Note, H&P, consults and PNs. Additional clarification regarding the type of atrial fibrillation is requested. History/Risk Factors: HTN w CHF and Stage 3 CKD Clinical Indicators: Atrial fibrillation rate controlled. EKG/telemetry: Sinus rhythm with 1st degree AV block with premature atrial complexes. RBBB. Vent rate-90 bpm, CO interval-242 ms, QRS-140 ms, QT/QTc- 418/511 ms, P-R-T axes- 79 153 2 Treatment: Apixaban 5mg PO BID Please clarify the type of atrial fibrillation, if known: [ ] Chronic [ ] Permanent [ ] Paroxysmal [ ] Persistent [ ] Other, please specify [ ] Unable to determine Paroxysmal MTDD
== END 2020-12-12 13:35 | disposition home health service (06) | DRG 871 ==
LOC: EC 12:56 → 3SCARD 15:56
PROVIDERS: ADMIT Hospitalist; ATTEND Hospitalist
PROC: 0DB78ZX Excision of Stomach, Pylorus, Via Natural or Artificial Opening Endoscopic, Diagnostic (ICD-10-PCS; principal; 2020-12-05 12:30)
PROC: 0DB98ZX Excision of Duodenum, Via Natural or Artificial Opening Endoscopic, Diagnostic (ICD-10-PCS; principal; 2020-12-05 12:30)
DX: A41.81 Sepsis due to Enterococcus (principal); N17.0 Acute kidney failure with tubular necrosis; G93.41 Metabolic encephalopathy; J18.9 Pneumonia, unspecified organism; E87.2 Acidosis; I13.0 Hypertensive heart and chronic kidney disease with heart failure and stage 1 through stage 4 chronic kidney disease, or unspecified chronic kidney disease; E87.1 Hypo-osmolality and hyponatremia; K92.0 Hematemesis; K56.0 Paralytic ileus; I50.9 Heart failure, unspecified; I95.9 Hypotension, unspecified; N18.30 Chronic kidney disease, stage 3 unspecified; I48.0 Paroxysmal atrial fibrillation; Z20.822 Contact with and (suspected) exposure to COVID-19; E78.5 Hyperlipidemia, unspecified; M19.90 Unspecified osteoarthritis, unspecified site; E89.0 Postprocedural hypothyroidism; K44.9 Diaphragmatic hernia without obstruction or gangrene; G47.00 Insomnia, unspecified; E86.0 Dehydration; D72.810 Lymphocytopenia; K29.70 Gastritis, unspecified, without bleeding; R47.81 Slurred speech; K52.9 Noninfective gastroenteritis and colitis, unspecified; E87.6 Hypokalemia; I25.10 Atherosclerotic heart disease of native coronary artery without angina pectoris; K43.9 Ventral hernia without obstruction or gangrene; N39.490 Overflow incontinence; I99.9 Unspecified disorder of circulatory system; I83.90 Asymptomatic varicose veins of unspecified lower extremity; H91.90 Unspecified hearing loss, unspecified ear; H54.7 Unspecified visual loss; E66.9 Obesity, unspecified; Z68.34 Body mass index [BMI] 34.0-34.9, adult; Z79.01 Long term (current) use of anticoagulants; Z79.890 Hormone replacement therapy; Z79.899 Other long term (current) drug therapy; Z86.718 Personal history of other venous thrombosis and embolism; Z95.1 Presence of aortocoronary bypass graft; Z86.711 Personal history of pulmonary embolism; Z85.850 Personal history of malignant neoplasm of thyroid; Z86.59 Personal history of other mental and behavioral disorders; Z86.19 Personal history of other infectious and parasitic diseases; Z95.3 Presence of xenogenic heart valve; Z96.652 Presence of left artificial knee joint; Z98.42 Cataract extraction status, left eye; Z98.41 Cataract extraction status, right eye; Z87.891 Personal history of nicotine dependence; Z98.890 Other specified postprocedural states; Z71.3 Dietary counseling and surveillance; Z82.49 Family history of ischemic heart disease and other diseases of the circulatory system; Z80.0 Family history of malignant neoplasm of digestive organs; Z83.2 Family history of diseases of the blood and blood-forming organs and certain disorders involving the immune mechanism
CPT/HCPCS: 36415; 43239; 71045; 74019; 74176; 80048; 80053; 81003; 82803; 83605; 83735; 84145; 84165; 84443; 85025; 85027; 85610; 85652; 86140; 87040; 87077; 87186; 87635; 88305; 93005; 93306; 94640; 94760; 96360; 96361; 99285

== ENCOUNTER → 2021-01-24 | Outpatient (CLI) | payer MEDICARE, OTHER ==
[2021-01-24 18:44] LABS: Phosphorus 3.2 mg/dL (2.4-5.1)
== END | disposition home or self-care (01) ==
LOC: LABWHC1 10:53
PROVIDERS: ATTEND Internal Medicine
DX: N17.9 Acute kidney failure, unspecified (principal); I13.0 Hypertensive heart and chronic kidney disease with heart failure and stage 1 through stage 4 chronic kidney disease, or unspecified chronic kidney disease; I50.32 Chronic diastolic (congestive) heart failure; N18.31 Chronic kidney disease, stage 3a
CPT/HCPCS: 36415; 83735; 84100

== ENCOUNTER 2021-03-21 11:58 | Inpatient (IN) | payer MEDICARE, OTHER ==
--- NOTE | 2021-03-21 13:26 | ED ---
General Adult HPI - General Source: patient, family, EMS Mode of arrival: EMS Limitations: no limitations <Sylwia Levin - Last Filed: 03/21/21 15:35> <Augie Gore - Last Filed: 03/21/21 15:43> - General Chief complaint: Urogenital Stated complaint: scrotial laceration Time Seen by Provider: 03/21/21 12:19 - History of Present Illness Initial comments: 76-year-old male presents to the emergency department via EMS accompanied by his for evaluation of scrotal bleeding, onset this morning. Patient and deny any trauma. Spouse states the patient has dementia and is often unable to provide details therefore is relaying the narrative. Spouse states she suspects the patient caused his injury by scratching. EMS was required to assist with control of bleeding. Arrives with Kerlix dressing in place. Patient also arrives with a low heart rate and low blood pressure; spouse states this is normal for patient, however she also reports the patient has had 3 falls this week with no known injury. (Sylwia Levin) - Related Data Home Medications Medication Instructions Recorded Confirmed Apixaban [Eliquis] 5 mg PO BID 05/30/19 12/01/20 Amiodarone [Cordarone] 100 mg PO DAILY 12/01/20 12/01/20 Atorvastatin [Lipitor] 10 mg PO HS 12/01/20 12/01/20 Diltiazem HCl [Cartia Xt] 120 mg PO DAILY 12/01/20 12/01/20 Furosemide [Lasix] 40 mg PO BID 12/01/20 12/01/20 Levothyroxine Sodium [Synthroid] 175 mcg PO DAILY 12/01/20 12/01/20 Metoprolol Tartrate [Lopressor] 150 mg PO BID 12/01/20 12/01/20 lisinopriL [Zestril] 2.5 mg PO DAILY 12/01/20 12/01/20 Previous Rx's Medication Instructions Recorded Amoxic-Pot Clav 875-125Mg 1 tab PO Q12HR 6 Days #12 tab 12/12/20 [Augmentin 875-125] Ipratropium-Albuterol Nebulize 3 ml INHALATION RT-QID PRN #300 ml 12/12/20 [Duoneb 0.5 mg-3 mg/3 ml Soln] Pantoprazole [Protonix] 40 mg PO AC-BRKFST 30 Days 12/12/20 tablet. Umeclidinium Brm/Vilanterol Tr 1 puff INHALATION RT-BID #1 device 12/12/20 [Anoro Ellipta 62.5-25 Mcg INH] Allergies Allergy/AdvReac Type Severity Reaction Status Date / Time No Known Allergies Allergy Verified 03/21/21 12:22 Review of Systems ROS Other: All systems not noted in ROS Statement are negative. <Sylwia Levin - Last Filed: 03/21/21 15:35> ROS Other: All systems not noted in ROS Statement are negative. <Augie Gore - Last Filed: 03/21/21 15:43> ROS Statement: Those systems with pertinent positive or pertinent negative responses have been documented in the HPI. Past Medical History Past Medical History: Atrial Fibrillation, Cancer, Heart Failure, Dementia, Deep Vein Thrombosis (DVT), Hyperlipidemia, Hypertension, Osteoarthritis (OA), Pulmonary Embolus (PE), Thyroid Disorder, Vascular Disorder Additional Past Medical History / Comment(s): THYROID CANCER with surgery/radio active tablets, bilateral lower leg cellulitis 2015, varicose veins, past DVTs and PEs, short term memory problems, episodes of hypotension, hiatal hernia, gastritis. Insomnia. Depression. Atrial fibrillation. History of Any Multi-Drug Resistant Organisms: None Reported Past Surgical History: Cardiac Valve Replacement, Heart Catheterization, Joint Replacement Additional Past Surgical History / Comment(s): Thyroidectomy, total left knee replacement, JAYDE/CVN, 09/29/16 aortic valve replacement with bovine valve and mitral valve repair, mediastinal lymph node biopsy, sternal chest wound debridement/ wound vac/sternotomy and muscle straps, COLONOSCOPY, EGD, bilateral cataract removals and L eye was injured requirin surgery to remove blood. Past Anesthesia/Blood Transfusion Reactions: No Reported Reaction Additional Past Anesthesia/Blood Transfusion Reaction / Comment(s): Pt has received blood in past without reaction. Past Psychological History: Depression Smoking Status: Never smoker Past Alcohol Use History: Rare Past Drug Use History: None Reported - Past Family History Father Family Medical History: Coronary Artery Disease (CAD) Additional Family Medical History / Comment(s): Father at the age pf 76yrs from heart problems. Mother Family Medical History: Vascular Disorder Additional Family Medical History / Comment(s): Mother had varicosities. She lived to be 92 yrs old. Brother(s) Family Medical History: Cancer Additional Family Medical History / Comment(s): LIVER CA. BLOOD CLOT. <Sylwia Levin - Last Filed: 03/21/21 15:35> General Exam Limitations: altered mental status (History of dementia, patient is a poor historian. Spouse present at bedside.) General appearance: alert, in no apparent distress, obese Head exam: Present: atraumatic, normocephalic Respiratory exam: Present: normal lung sounds bilaterally, rales, other (Arrives with oxygen at 2 L via nasal cannula from EMS). Absent: respiratory distress, wheezes Cardiovascular Exam: Present: bradycardia, irregular rhythm, other (Initial heart rate of 49-56) GI/Abdominal exam: Present: soft, normal bowel sounds exam: Present: other (Extensive excoriation in the lower abdominal fold, bilateral groin folds, the scrotum, and perineum. Active bleeding from small scrotal wound.) Left Lower Leg exam: Present: swelling Ankle exam: Present: swelling (+2 lower extremity edema ) Right Lower Leg exam: Present: swelling. Absent: abrasion Ankle exam: Present: swelling. Absent: abrasion (+2 bilateral lower extremity edema) Neurological exam: Present: alert, other (Oriented to person, not place or time) Psychiatric exam: Present: normal mood Skin exam: Present: warm, dry, other (Tenting skin of the Upper extremities) <Sylwia Levin - Last Filed: 03/21/21 15:35> Course <Sylwia Levin - Last Filed: 03/21/21 15:35> <Augie Gore - Last Filed: 03/21/21 15:43> Vital Signs 03/21/21 03/21/21 03/21/21 12:22 12:27 13:35 Temperature 97.7 F Pulse Rate 51 L 53 L Respiratory 20 20 Rate Blood Pressure 79/64 86/57 O2 Sat by Pulse 98 Oximetry 03/21/21 03/21/21 03/21/21 14:10 14:52 15:37 Temperature Pulse Rate 53 L 54 L 52 L Respiratory 20 20 20 Rate Blood Pressure 78/62 86/67 88/55 O2 Sat by Pulse 97 99 98 Oximetry - Reevaluation(s) Reevaluation #1: Blood pressure and heart rate have improved after first 500 mL bolus, however patient does remain hypotensive therefore another bolus will be ordered 03/21/21 14:31 (Sylwia Levin) Reevaluation #2: 03/21/21 15:42 [employer] supervision: I did personally evaluate the patient did present with complaints of some scrotal bleeding he did demonstrate evidence of peripheral edema no active bleeding at the time of my examination to demonstrate dry oral mucosa somewhat diminished breath sounds no focal consolidations. He did have hypotensive episodes which did improve after IV fluids. Imaging did show evide nce of congestive changes. Patient be admitted to Dr. Page's service. (Augie Gore) EKG Findings - EKG Comments: EKG Findings:: EKG is obtained at 1331 shows atrial fibrillation with slow ventricular response and a right bundle-branch block. Ventricular rate of 59, ID interval indeterminate, QRS duration 144, QT/QTC 544/538. <Sylwia Levin - Last Filed: 03/21/21 15:35> Medical Decision Making - Lab Data Result diagrams: 03/21/21 13:32 03/21/21 13:32 - Radiology Data Radiology results: report reviewed <Sylwia Levin - Last Filed: 03/21/21 15:35> - Lab Data Result diagrams: 03/21/21 13:32 03/21/21 13:32 <Augie Gore - Last Filed: 03/21/21 15:43> - Medical Decision Making 76-year-old male present to the emergency department for evaluation of scrotal wound with bleeding unable to be controlled at home. Said wound appears to be small scratch continuously oozing. LET was applied; scant oozing remains. Upon presentation patient was hypotensive with an initial blood pressure 79/54. Initial heart rate was bradycardic at 52. Due to patient's history of significant heart failure patient was only given a 500 ml fluid bolus; and blood pressure improved to 86/64, heart rate remains in the mid 50s. Patient denies any symptoms of hypotension including dizziness or feeling unsteady. Patient has a number of abnormal labs including a BUN of 66 and a creatinine of 2.29. His troponin is elevated at 0.077. Also notable is his platelet count of 76, his PT of 14, and his INR 1.4. Lactic acid was 1.6. This patient's case was discussed with my attending. Patient will be admitted to the hospital for further evalu ation and treatment. (Sylwia Levin) - Lab Data Lab Results 03/21/21 03/21/21 03/21/21 Range/Units 13:32 13:32 13:32 WBC 13.4 H (3.8-10.6) k/uL RBC 3.88 L (4.30-5.90) m/uL Hgb 11.5 L (13.0-17.5) gm/dL Hct 35.6 L (39.0-53.0) % MCV 91.8 (80.0-100.0) fL MCH 29.7 (25.0-35.0) pg MCHC 32.3 (31.0-37.0) g/dL RDW 17.0 H (11.5-15.5) % Plt Count 76 L (150-450) k/uL MPV 9.5 Neutrophils % 94 % Lymphocytes % 3 % Monocytes % 2 % Eosinophils % 0 % Basophils % 0 % Neutrophils # 12.6 H (1.3-7.7) k/uL Lymphocytes # 0.4 L (1.0-4.8) k/uL Monocytes # 0.3 (0-1.0) k/uL Eosinophils # 0.0 (0-0.7) k/uL Basophils # 0.0 (0-0.2) k/uL Anisocytosis Slight PT 14.0 H (9.0-12.0) sec INR 1.4 H (<1.2) APTT 28.4 (22.0-30.0) sec Sodium 134 L (137-145) mmol/L Potassium 3.8 (3.5-5.1) mmol/L Chloride 102 (98-107) mmol/L Carbon Dioxide 24 (22-30) mmol/L Anion Gap 8 mmol/L BUN 66 H (9-20) mg/dL Creatinine 2.29 H (0.66-1.25) mg/dL Est GFR (CKD-EPI)AfAm 31 (>60 ml/min/1.73 sqM) Est GFR (CKD-EPI)NonAf 26 (>60 ml/min/1.73 sqM) Glucose 123 H (74-99) mg/dL Plasma Lactic Acid Samir (0.7-2.0) mmol/L Calcium 7.2 L (8.4-10.2) mg/dL Total Bilirubin 1.4 H (0.2-1.3) mg/dL AST 34 (17-59) U/L ALT 20 (4-49) U/L Alkaline Phosphatase 106 (38-126) U/L Troponin I (0.000-0.034) ng/mL Total Protein 6.5 (6.3-8.2) g/dL Albumin 2.7 L (3.5-5.0) g/dL 03/21/21 03/21/21 Range/Units 13:32 13:32 WBC (3.8-10.6) k/uL RBC (4.30-5.90) m/uL Hgb (13.0-17.5) gm/dL Hct (39.0-53.0) % MCV (80.0-100.0) fL MCH (25.0-35.0) pg MCHC (31.0-37.0) g/dL RDW (11.5-15.5) % Plt Count (150-450) k/uL MPV Neutrophils % % Lymphocytes % % Monocytes % % Eosinophils % % Basophils % % Neutrophils # (1.3-7.7) k/uL Lymphocytes # (1.0-4.8) k/uL Monocytes # (0-1.0) k/uL Eosinophils # (0-0.7) k/uL Basophils # (0-0.2) k/uL Anisocytosis PT (9.0-12.0) sec INR (<1.2) APTT (22.0-30.0) sec Sodium (137-145) mmol/L Potassium (3.5-5.1) mmol/L Chloride (98-107) mmol/L Carbon Dioxide (22-30) mmol/L Anion Gap mmol/L BUN (9-20) mg/dL Creatinine (0.66-1.25) mg/dL Est GFR (CKD-EPI)AfAm (>60 ml/min/1.73 sqM) Est GFR (CKD-EPI)NonAf (>60 ml/min/1.73 sqM) Glucose (74-99) mg/dL Plasma Lactic Acid Samir 1.6 (0.7-2.0) mmol/L Calcium (8.4-10.2) mg/dL Total Bilirubin (0.2-1.3) mg/dL AST (17-59) U/L ALT (4-49) U/L Alkaline Phosphatase (38-126) U/L Troponin I 0.077 H* (0.000-0.034) ng/mL Total Protein (6.3-8.2) g/dL Albumin (3.5-5.0) g/dL - Radiology Data Chest x-ray was obtained. Impression per Dr. Fallon states findings most consistent with [id number] CHF (Sylwia Levin) Disposition <Sylwia Levin - Last Filed: 03/21/21 15:35> <Augie Gore - Last Filed: 03/21/21 15:43> Clinical Impression: Thrombocytopenia, GORDO (acute kidney injury), Congestive heart failure, Generalized weakness, Scrotal bleeding, Falls frequently Disposition: ADMITTED IP TO THIS [facility] Condition: Fair Referrals: Russell aDs MD [Primary Care Provider] - 1-2 days
[2021-03-21] MEDS: SODIUM CHLORIDE 0.9% 500 ML 500 ML IV SCH (13:40)
[2021-03-21] MEDS: SODIUM CHLORIDE 0.9% 1,000 ML IV SCH ×2 (13:40→20:12)
[2021-03-21 14:00] LABS: Anisocytosis Slight; Basophils % (A) 0 %; Eosinophils % (A) 0 %; HCT 35.6 % (39.0-53.0); HGB 11.5 gm/dL (13.0-17.5); Lymphocytes # (A) 0.4 k/uL (1.0-4.8); Lymphocytes % (A) 3 %; MCH 29.7 pg (25.0-35.0); MCHC 32.3 g/dL (31.0-37.0); MCV 91.8 fL (80.0-100.0); Mean Platelet Volume 9.5; Monocytes # (A) 0.3 k/uL (0-1.0); Monocytes % (A) 2 %; Neutrophils # (A) 12.6 k/uL (1.3-7.7); Neutrophils % (A) 94 %; RBC 3.88 m/uL (4.30-5.90); WBC 13.4 k/uL (3.8-10.6)
[2021-03-21 14:03] LABS: Platelet Count 76 k/uL (150-450)
--- NOTE | 2021-03-21 14:09 | XR ---
EXAMINATION TYPE: XR chest 1V portable DATE OF EXAM: 03/21/2021 COMPARISON: 12/11/2020 HISTORY: Shortness of breath TECHNIQUE: Single frontal view of the chest is obtained. FINDINGS: The heart is moderately enlarged and there is mild pulmonary vascular congestion. Small ri ght effusion is present. There is no pneumothorax. The osseous structures are intact IMPRESSION: Findings most consistent with mild to moderate CHF. Short-term follow-up to resolution
[2021-03-21 14:11] LABS: INR 1.4 (<1.2); Partial Thromboplastin Time 28.4 sec (22.0-30.0)
[2021-03-21 14:14] LABS: Albumin 2.7 g/dL (3.5-5.0); Calcium 7.2 mg/dL (8.4-10.2); Potassium 3.8 mmol/L (3.5-5.1); Total Bilirubin 1.4 mg/dL (0.2-1.3); Total Protein 6.5 g/dL (6.3-8.2)
[2021-03-21] MEDS ORDERED: LIDOCAINE/EPINEPHR/TETRACAINE 5 ML BOTTLE TOPICAL ONE (14:30)
[2021-03-21] MEDS ORDERED: SODIUM CHLORIDE 0.9% 500 ML 500 ML IV STA (15:31)
[2021-03-21] MEDS ORDERED: NALOXONE 0.4 MG/ML 1 ML VIAL IV PRN (15:39)
[2021-03-21] MEDS ORDERED: ACETAMINOPHEN TAB 325 MG TAB PO PRN (15:39)
[2021-03-21 18:08] LABS: Appearance,Urine Clear (Clear); Bilirubin,Urine Negative (Negative); Blood,Urine Large (Negative); Color,Urine Yellow; Glucose,Urine (UA) Negative (Negative); Hyaline Casts,Urine 4 /lpf (0-2); Ketones,Urine Negative (Negative); Leukocyte Esterase,Urine Negative (Negative); Mucus,Urine Rare /hpf; Nitrite,Urine Negative (Negative); Protein,Urine Negative (Negative); RBC,Urine 20 /hpf (0-5); Specific Gravity,Urine 1.011 (1.001-1.035); Squamous Epithelial Cell,Urine <1 /hpf (0-4); Urobilinogen,Urine <2.0 mg/dL (<2.0); WBC,Urine 1 /hpf (0-5)
[2021-03-21] MEDS ORDERED: IPRATROPIUM-ALBUTEROL 3 ML NEB INHALATION PRN (19:22)
[2021-03-21] MEDS ORDERED: HYDROcodone/APAP 5-325MG 1 EACH TAB PO PRN (19:36)
[2021-03-21] MEDS ORDERED: HYDROmorphone 0.5 MG/0.5 ML SYRINGE IVP PRN (19:36)
[2021-03-21] MEDS ORDERED: ALPRAZolam 0.25 MG TAB PO PRN (19:36)
[2021-03-21] MEDS: ATORVASTATIN 10 MG TAB PO SCH (20:12)
[2021-03-21] MEDS: PIPERACILLIN-TAZOBACTAM 3.375 GM in SODIUM CHLORIDE 0.9% 100 ML IVPB SCH (20:12)
[2021-03-21] MEDS: FUROSEMIDE 40 MG TAB PO SCH (20:12)
--- NOTE | 2021-03-21 20:56 | HP ---
HISTORY AND PHYSICAL DATE OF SERVICE: 03/21/2021. CHIEF COMPLAINTS: Scrotal pain as well as laceration and bleeding. HISTORY OF PRESENT ILLNESS: This 76-year-old gentleman with a past medical history of atrial fibrillation, history of CHF, dementia, DVT, hypertension, DJD, history of pulmonary embolism, being followed by Dr. [facility] in the outpatient setting, was complaining of scrotal pain, some bleeding, scratching and swelling also. There is no history of any fever, rigors or chills. No history of headache, loss of consciousness, seizures. The bleeding was more active when the patient presented at the ER, but with Kerlix dressing in place it is much better at this time. PAST MEDICAL HISTORY: Atrial ablation, history of CHF, dementia, DVT, hypertension, hyperlipidemia, history of pulmonary embolism. MEDICATIONS: Medications prior to admission include Zestril, Anoro Ellipta, metoprolol, Synthroid, DuoNeb, Lasix, Cartia XT, Lipitor and Cordarone. ALLERGIES: NONE. FAMILY HISTORY: History of liver cancer and blood clots in the family. SOCIAL HISTORY: Previous history of smoking. No history of alcohol intake. REVIEW OF SYSTEMS: ENT: Diminished hearing. Diminished vision. CARDIOVASCULAR SYSTEM: No angina, palpitations. RESPIRATORY SYSTEM: Short of breath. GI: No nausea, vomiting, diarrhea. : No dysuria. NERVOUS SYSTEM: No numbness, weakness. ALLERGY/IMMUNOLOGY: No asthma or hay fever. MUSCULOSKELETAL: As mentioned earlier. HEMATOLOGY/ONCOLOGY: No history of anemia. ENDOCRINE: As mentioned earlier. CONSTITUTIONAL: As mentioned earlier. DERMATOLOGY: Negative. RHEUMATOLOGY: Negative. PSYCHIATRY: As mentioned earlier. PHYSICAL EXAMINATION: Patient alert and oriented x3. Pulse 57, blood pressure 88/57, respiration 20, temperature 98.2, pulse ox 98% on 2 L. HEENT: Conjunctivae normal. NECK: No jugular venous distention. CARDIOVASCULAR: S1, S2 muffled. RESPIRATION: Breath sounds diminished at the bases. A few scattered rhonchi. No crackles. ABDOMEN: Soft, non-tender. No mass palpable. EXAMINATION OF THE SCROTUM: Tender, erythematous. Some scratches and minimal bleeding. LEGS: No edema. No swelling. NERVOUS SYSTEM: Higher functions as mentioned earlier. Moves all 4 limbs. No focal motor or sensory deficit. LYMPHATICS: No lymph node palpable in neck, axillae or groin. SKIN: As mentioned earlier. JOINTS: No active deforming arthropathy. LABS: WBC 13.4, hemoglobin 11.5. INR 1.4. Sodium 134. Other labs are noted. Troponin noted. The chest x-ray, which was reviewed personally by me, showed some evidence of CHF. ASSESSMENT: 1. Scrotal bleeding as well as cellulitis of undetermined etiology. 2. Shortness of breath. Rule out congestive heart failure. 3. History of atrial fibrillation. 4. Dementia. 5. History of deep vein thrombosis. 6. Hyperlipidemia. 7. Hypertension. 8. History of degenerative joint disease. 9. History of pulmonary embolism. 10.Hypothyroidism. 11.History of thyroid cancer. 12.History of cardiac valve replacement. 13.History of cardiac catheterization. 14.History of depression. 15.NO CODE, NO CPR, NO VENT. RECOMMENDATIONS AND DISCUSSION: In this 76-year-old gentleman who presented with multiple complex medical issues, we will monitor the patient closely, continue the current medications, continue symptomatic treatment. Otherwise at this time I recommend a BNP, a 2D echo with Doppler, empiric antibiotics. Anticoagulants to be restarted once the bleeding is controlled. I would also recommend a cardiology consultation. Prognosis is guarded because of multiple complex medical issues. Further recommendations to follow. A copy of this dictation is being forwarded to Dr. Sams, who is the primary physician. JOHAN / RUBI: [id number] /
[2021-03-21] MEDS: IPRATROPIUM-ALBUTEROL 3 ML NEB INHALATION SCH (21:34)
[2021-03-21] MEDS: FORMOTEROL FUMARATE 20 MCG/2 ML NEBU INHALATION SCH (21:53)
[2021-03-21] MEDS: METOPROLOL TARTRATE 50 MG TAB PO SCH (23:35)
[2021-03-22] MEDS: PIPERACILLIN-TAZOBACTAM 3.375 GM in SODIUM CHLORIDE 0.9% 100 ML IVPB SCH ×2 (00:17→08:06)
[2021-03-22 05:51] LABS: Anisocytosis Slight; Basophils % (A) 0 %; Eosinophils # (A) 0.1 k/uL (0-0.7); Eosinophils % (A) 1 %; HCT 35.2 % (39.0-53.0); HGB 11.3 gm/dL (13.0-17.5); Lymphocytes # (A) 0.3 k/uL (1.0-4.8); Lymphocytes % (A) 3 %; MCH 29.5 pg (25.0-35.0); MCHC 32.1 g/dL (31.0-37.0); MCV 91.7 fL (80.0-100.0); Mean Platelet Volume 9.6; Monocytes # (A) 0.3 k/uL (0-1.0); Monocytes % (A) 3 %; Neutrophils # (A) 8.7 k/uL (1.3-7.7); Neutrophils % (A) 93 %; RBC 3.83 m/uL (4.30-5.90); RDW 17.2 % (11.5-15.5); WBC 9.5 k/uL (3.8-10.6)
[2021-03-22 05:55] LABS: Platelet Count 79 k/uL (150-450)
[2021-03-22 06:04] LABS: Albumin 2.6 g/dL (3.5-5.0); Calcium 6.7 mg/dL (8.4-10.2); Potassium 3.3 mmol/L (3.5-5.1); Total Bilirubin 1.5 mg/dL (0.2-1.3); Total Protein 6.5 g/dL (6.3-8.2)
[2021-03-22] MEDS ORDERED: Potassium Replacement Protocol 1 EACH MISC MISCELLANE PRN (06:11)
[2021-03-22] MEDS: FUROSEMIDE 40 MG TAB PO SCH ×2 (06:30→17:06)
[2021-03-22] MEDS: LEVOTHYROXINE 100 MCG TAB PO SCH (06:30)
[2021-03-22] MEDS: LEVOTHYROXINE 75 MCG TAB PO SCH (06:30)
[2021-03-22] MEDS: POTASSIUM CHLORIDE ER 20 MEQ TAB.ER PO SCH ×2 (06:31→08:06)
[2021-03-22] MEDS: AMIODARONE 100 MG TAB PO SCH (08:07)
[2021-03-22] MEDS: DILTIAZEM CD 120 MG CAP.ER.24H PO SCH (08:07)
[2021-03-22] MEDS: METOPROLOL TARTRATE 50 MG TAB PO SCH ×2 (08:07→20:08)
[2021-03-22] MEDS: IPRATROPIUM-ALBUTEROL 3 ML NEB INHALATION SCH ×4 (08:07→21:08)
--- NOTE | 2021-03-22 13:57 | P.CRDCN ---
History of Present Illness Consult date: 03/22/21 Consult reason: atrial fibrillation History of present illness: History of present illness: This is a 76-year-old male patient with past medical history of mitral valve repair, aortic valve replacement 2017, chronic atrial fibrillation, hyperten erick, hyperlipidemia, paroxysmal atrial fibrillation dementia. Patient is unable to provide information and information is obtained from the patient's at bedside. Patient apparently developed bleeding from the scrotal area which his states was probably from him scratching. Due to him being on eliquis, there was significant bleeding and patient was taken to the emergency center for further evaluation. He was found to be quite hypotensive at 79/64 heart rate was in the 50s. He was given IV fluid bolus of 500 with some improvement of his blood pressure. EKG was atrial fibrillation at rate of 59 bpm. WBC 13.4, hemoglobin 11.5, platelet count 76. Sodium 134, potassium 3.8, BUN 66 and creatinine 2.29. D-dimer 4.05. Troponin 0.077. ProBNP 11,400. Coronavirus PCR not detected. Urinalysis positive for blood. Chest x-ray reveals mild to moderate heart failure. Review Of Systems: Constitutional: No fever, no chills. Noted generalized weakness EENT: No headache. No dizziness. Lungs: Reported shortness of breath, cough, no sputum production. No wheezing. Cardiovascular: No chest pain, no lower extremity edema. No palpitations. No syncopal episodes. Abdominal: No abdominal pain. No nausea, vomiting. No diarrhea. No bloody or tarry stools. Genitourinary: No dysuria.. No urinary retention. Musculoskeletal: No myalgias. Noted muscle weakness, noted gait dysfunction, no frequent falls. No back pain. No neck pain. Integumentary: Reported scrotal wounds. No rash. Neurologic: No aphasia. No facial droop. Chronic mental status changes secondary to dementia. No head injury. No headache. Endocrine: No abnormal blood sugars. Physical examination: Gen: This is a a 76-year-old male. He is resting in bed and appears to be comfortable. VS: Heart rate 72, afebrile, blood pressure 91/60, pulse ox 96% on 2 L HEENT: Head is atraumatic, normocephalic. Pupils equal, round. Sclerae is anicteric. NECK: Supple. No JVD. No lymphadenopathy. No thyromegaly. LUNGS: Diminished breath sounds, few scattered rhonchi. No intercostal retractions. HEART: Irregular rate and rhythm. Systolic ejection murmur. ABDOMEN: Obese. Soft. Bowel sounds are present. No masses. No tenderness. EXTREMITIES: No pedal edema. No calf tenderness. NEUROLOGICAL: Patient is awake, oriented to person Assessment: Scrotal bleeding Paroxysmal atrial fibrillation Status post mitral valve repair and aortic valve replacement Preliminary blood culture positive for Enterococcus faecalis Hypertension Hyperlipidemia Dementia Plan: Continue home medications of amiodarone 100 mg daily, Cardizem CD 120 mg daily, Lasix 40 mg oral twice daily, Lopressor 100 mg twice daily Hold eliquis secondary to scrotal bleeding Further recommendations to follow based upon clinical course Thank you kindly for this consultation. Nurse practitioner note has been reviewed, I agree with documented findings and plan of care. Patient was seen and examined. Past Medical History Past Medical History: Atrial Fibrillation, Cancer, Heart Failure, Dementia, Deep Vein Thrombosis (DVT), Hyperlipidemia, Hypertension, Osteoarthritis (OA), Pulmo nary Embolus (PE), Thyroid Disorder, Vascular Disorder Additional Past Medical History / Comment(s): THYROID CANCER with surgery/radio active tablets, bilateral lower leg cellulitis 2015, varicose veins, past DVTs and PEs, short term memory problems, episodes of hypotension, hiatal hernia, gastritis. Insomnia. Depression. Atrial fibrillation. History of Any Multi-Drug Resistant Organisms: None Reported Past Surgical History: Cardiac Valve Replacement, Heart Catheterization, Joint Replacement Additional Past Surgical History / Comment(s): Thyroidectomy, total left knee replacement, JAYDE/CVN, 09/29/16 aortic valve replacement with bovine valve and mitral valve repair, mediastinal lymph node biopsy, sternal chest wound debridement/ wound vac/sternotomy and muscle straps, COLONOSCOPY, EGD, bilateral cataract removals and L eye was injured requirin surgery to remove blood. Past Anesthesia/Blood Transfusion Reactions: No Reported Reaction Additional Past Anesthesia/Blood Transfusion Reaction / Comment(s): Pt has received blood in past without reaction. Smoking Status: Former smoker - Past Family History Father Family Medical History: Coronary Artery Disease (CAD) Additional Family Medical History / Comment(s): Father at the age pf 76yrs from heart problems. Mother Family Medical History: Vascular Disorder Additional Family Medical History / Comment(s): Mother had varicosities. She lived to be 92 yrs old. Brother(s) Family Medical History: Cancer Additional Family Medical History / Comment(s): LIVER CA. BLOOD CLOT. Medications and Allergies Home Medications Medication Instructions Recorded Confirmed Type Apixaban [Eliquis] 5 mg PO BID 05/30/19 03/21/21 History Amiodarone [Cordarone] 100 mg PO DAILY 12/01/20 03/21/21 History Atorvastatin [Lipitor] 10 mg PO HS 12/01/20 03/21/21 History Diltiazem HCl [Cartia Xt] 120 mg PO DAILY 12/01/20 03/21/21 History Furosemide [Lasix] 40 mg PO BID 12/01/20 03/21/21 History Levothyroxine Sodium [Synthroid] 175 mcg PO DAILY 12/01/20 03/21/21 History Metoprolol Tartrate [Lopressor] 100 mg PO BID 12/01/20 03/21/21 History lisinopriL [Zestril] 2.5 mg PO DAILY 12/01/20 03/21/21 History Ipratropium-Albuterol Nebulize 3 ml INHALATION RT-QID PRN #300 ml 12/12/20 03/21/21 Rx [Duoneb 0.5 mg-3 mg/3 ml Soln] Umeclidinium Brm/Vilanterol Tr 1 puff INHALATION RT-BID #1 device 12/12/20 03/21/21 Rx [Anoro Ellipta 62.5-25 Mcg INH] Allergies Allergy/AdvReac Type Severity Reaction Status Date / Time No Known Allergies Allergy Verified 03/21/21 16:10 Physical Exam Vitals: Vital Signs Temp Pulse Pulse Resp BP BP Pulse Ox 03/22/21 08:20 114 H 18 03/22/21 08:08 118 H 22 96 03/22/21 08:00 97.6 F 116 H 20 102/60 98 03/22/21 04:00 97.6 F 88 20 108/69 96 03/22/21 00:00 97.5 F L 70 20 99/65 96 03/21/21 21:44 57 L 03/21/21 21:34 57 L 03/21/21 20:00 97.4 F L 60 22 101/69 98 03/21/21 18:45 57 L 20 88/57 98 03/21/21 17:15 98.2 F 62 20 91/66 98 03/21/21 16:30 61 20 85/62 98 03/21/21 15:37 52 L 20 88/55 98 03/21/21 14:52 54 L 20 86/67 99 03/21/21 14:10 53 L 20 78/62 97 03/21/21 13:35 53 L 20 86/57 98 03/21/21 12:27 79/64 03/21/21 12:22 97.7 F 51 L 20 Intake and Output 03/21/21 03/22/21 03/22/21 22:59 06:59 14:59 Intake Total 658 540 Output Total 150 1050 Balance 508 -1050 540 Intake: Intake, IV Titration 300 Amount Piperacillin-Tazobactam 3 100 .375 gm In Sodium Chloride 0.9% 100 ml @ 25 mls/hr IVPB Q8HR [facility] Rx# :[id number] Sodium Chloride 0.9% 1, 200 000 ml @ 50 mls/hr IV . Q20H [facility] Rx#:[id number] Oral 658 240 Output: Urine 150 1050 Other: Voiding Method Urinal Urinal Urinal # Voids 1 3 # Bowel Movements 1 Weight 92.986 kg 105.5 kg Results 03/22/21 05:33 03/22/21 11:51 Cardiac Enzymes 03/21/21 03/21/21 03/22/21 Range/Units 13:32 13:32 05:33 AST 34 32 (17-59) U/L Troponin I 0.077 H* (0.000-0.034) ng/mL Coagulation 03/21/21 Range/Units 13:32 PT 14.0 H (9.0-12.0) sec APTT 28.4 (22.0-30.0) sec CBC 03/21/21 03/22/21 Range/Units 13:32 05:33 WBC 13.4 H 9.5 (3.8-10.6) k/uL RBC 3.88 L 3.83 L (4.30-5.90) m/uL Hgb 11.5 L 11.3 L (13.0-17.5) gm/dL Hct 35.6 L 35.2 L (39.0-53.0) % Plt Count 76 L 79 L (150-450) k/uL Comprehensive Metabolic Panel 03/21/21 03/22/21 Range/Units 13:32 05:33 Sodium 134 L 134 L (137-145) mmol/L Potassium 3.8 3.3 L (3.5-5.1) mmol/L Chloride 102 105 (98-107) mmol/L Carbon Dioxide 24 21 L (22-30) mmol/L BUN 66 H 53 H (9-20) mg/dL Creatinine 2.29 H 1.84 H (0.66-1.25) mg/dL Glucose 123 H 129 H (74-99) mg/dL Calcium 7.2 L 6.7 L (8.4-10.2) mg/dL AST 34 32 (17-59) U/L ALT 20 18 (4-49) U/L Alkaline Phosphatase 106 100 (38-126) U/L Total Protein 6.5 6.5 (6.3-8.2) g/dL Albumin 2.7 L 2.6 L (3.5-5.0) g/dL Current Medications Generic Name Dose Route Start Last Admin Trade Name Freq PRN Reason Stop Dose Admin Acetaminophen 650 mg 03/21/21 15:39 Acetaminophen Tab 325 Mg Tab PO Q6HR PRN Mild Pain or Fever > 100.5 Hydrocodone Bitart/Acetaminophen 1 each 03/21/21 19:36 Hydrocodone/Apap 5-325mg 1 Each Tab PO Q6HR PRN Moderate Pain Albuterol/Ipratropium 3 ml 03/21/21 19:22 Ipratropium-Albuterol 3 Ml Neb INHALATION RT-QID PRN Shortness Of Breath Or Wheezing Albuterol/Ipratropium 3 ml 03/21/21 20:00 03/22/21 08:07 Ipratropium-Albuterol 3 Ml Neb INHALATION 3 ml RT-QID STEVAN Administration Alprazolam 0.25 mg 03/21/21 19:36 Alprazolam 0.25 Mg Tab PO TID PRN Anxiety Amiodarone HCl 100 mg 03/22/21 09:00 03/22/21 08:07 Amiodarone 100 Mg Tab PO 100 mg DAILY STEVAN Administration Atorvastatin Calcium 10 mg 03/21/21 21:00 03/21/21 20:12 Atorvastatin 10 Mg Tab PO 10 mg HS STEVAN Administration Diltiazem HCl 120 mg 03/22/21 09:00 03/22/21 08:07 Diltiazem Cd 120 Mg Cap.Er.24h PO 120 mg DAILY STEVAN Administration Formoterol Fumarate 20 mcg 03/21/21 20:00 03/21/21 21:53 Formoterol Fumarate 20 Mcg/2 Ml Nebu INHALATION Not Given RT-BID STEVAN Furosemide 40 mg 03/21/21 20:00 03/22/21 06:30 Furosemide 40 Mg Tab PO 40 mg BID-W/MEALS STEVAN Administration Hydromorphone HCl 0.5 mg 03/21/21 19:36 Hydromorphone 0.5 Mg/0.5 Ml Syringe IVP Q6HR PRN Severe Pain Sodium Chloride 1,000 mls @ 50 mls/hr 03/21/21 13:15 03/21/21 20:12 Saline 0.9% IV 50 mls/hr .Q20H STEVAN Administration Piperacillin Sod/Tazobactam 100 mls @ 25 mls/hr 03/21/21 19:30 03/22/21 08:06 Sod 3.375 gm/ Sodium Chloride IVPB 25 mls/hr Q8HR STEVAN Administration Levothyroxine Sodium 100 mcg 03/22/21 06:30 03/22/21 06:30 Levothyroxine 100 Mcg Tab PO 100 mcg DAILY@0630 STEVAN Administration Levothyroxine Sodium 75 mcg 03/22/21 06:30 03/22/21 06:30 Levothyroxine 75 Mcg Tab PO 75 mcg DAILY@0630 STEVAN Administration Lisinopril 2.5 mg 03/22/21 09:00 03/22/21 08:07 Lisinopril 2.5 Mg Tab PO 2.5 mg DAILY STEVAN Administration Metoprolol Tartrate 100 mg 03/21/21 21:00 03/22/21 08:07 Metoprolol Tartrate 50 Mg Tab PO 100 mg BID STEVAN Administration Miscellaneous Information 1 each 03/22/21 06:11 Potassium Replacement Protocol 1 Each Misc MISCELLANE DAILY PRN Per Protocol Protocol Naloxone HCl 0.2 mg 03/21/21 15:39 Naloxone 0.4 Mg/Ml 1 Ml Vial IV Q2M PRN Opioid Reversal Intake and Output 03/21/21 03/22/21 03/22/21 22:59 06:59 14:59 Intake Total 658 540 Output Total 150 1050 Balance 508 -1050 540 Intake: Intake, IV Titration 300 Amount Piperacillin-Tazobactam 3 100 .375 gm In Sodium Chloride 0.9% 100 ml @ 25 mls/hr IVPB Q8HR [facility] Rx# :[id number] Sodium Chloride 0.9% 1, 200 000 ml @ 50 mls/hr IV . Q20H [facility] Rx#:[id number] Oral 658 240 Output: Urine 150 1050 Other: Voiding Method Urinal Urinal Urinal # Voids 1 3 # Bowel Movements 1 Weight 92.986 kg 105.5 kg 03/22/21 05:33 03/22/21 05:33
--- NOTE | 2021-03-22 15:38 | XR ---
EXAMINATION TYPE: XR chest 1V portable DATE OF EXAM: 03/22/2021 COMPARISON: 03/21/2021 HISTORY: Short of breath TECHNIQUE: FINDINGS: There is some atelectasis at the lung bases. Heart is enlarged. There are chest leads. Ther e is poor inspiration. IMPRESSION: There is increased atelectasis at the lung bases compared to yesterday. No obvious heart failure.
[2021-03-22] MEDS: AMPICILLIN-SULBACTAM 3 GM in SODIUM CHLORIDE 0.9% 100 ML IVPB SCH ×2 (17:06→23:05)
[2021-03-22] MEDS: SODIUM CHLORIDE 0.9% 1,000 ML IV SCH (17:06)
[2021-03-22] MEDS: ATORVASTATIN 10 MG TAB PO SCH (20:08)
--- NOTE | 2021-03-22 21:09 | PN ---
PROGRESS NOTE DATE OF SERVICE: 03/22/2001 This 76-year-old gentleman who was admitted significant scrotal pain as well as some laceration and bleeding is being closely monitored at this time. The patient is on broad-spectrum IV antibiotics. The cultures were showing Enterococcus faecalis. ID is pending at this time. PAST MEDICAL HISTORY: Reviewed. REVIEW OF SYSTEMS: Cardiovascular: No angina. Respiration: As mentioned earlier. GI as mentioned earlier. : No dysuria. Nervous system: No numbness or weakness. CURRENT MEDICATIONS: Reviewed and include: Tylenol, [place], DuoNeb, Unasyn, Cardizem, Synthroid. Lopressor, doses reviewed and other medications also reviewed. PHYSICAL EXAMINATION: The patient is alert and oriented times three. Pulse 64. Blood pressure 103/64, respirations 20, temperature normal, pulse ox 98% on 3 L. HEENT: Conjunctivae normal. Neck: No jugular venous distention. Cardiovascular: S1, S2, muffled. No S3, no S4. Respiratory: Diminished breath sounds at the bases. A few scattered rhonchi. Abdomen: Soft, nontender. Otherwise examination of scrotum painful cellulitis, redness and scarring also present. LABS: D-dimer is 4.07. WBC 9, hemoglobin 11.3 sodium 130, potassium 3.6, creatinine is 1.84. C-reactive protein is 15.9, 21650. UA shows noted. Covid 19 is negative. ASSESSMENT: 1. Scrotal bleeding as well as cellulitis secondary to Enterobacter faecalis. 2. Shortness of breath, rule out congestive heart failure. 3. Elevated D-dimer. 4. Rule out pulmonary embolus. 5. History of atrial fibrillation. 6. Dementia. 7. History of deep vein thrombosis. 8. Hyperlipidemia. 9. Hypertension. 10.History of degenerative joint disease. 11.History of pulmonary embolism. 12.History of hypothyroidism. 13.History of thyroid cancer. 14.History of cardiac valve replacement. 15.History of cardiac catheterization. 16.History of depression. 17.Chronic kidney disease stage 3. 18.NO CODE, NO CPR, NO VENT. RECOMMENDATIONS AND DISCUSSION: Continue current medications, management and symptomatic treatment. Continue with antibiotic change. Follow closely with Dr. Gonzalez regarding the significant scrotal cellulitis. Otherwise 2D echo has been ordered and x-ray has been reviewed. The patient also had elevated D-dimer. However, the creatinine is elevated up to 1.84 today. I would recommend a V/Q scan and continue to monitor. The repeat chest x-ray today showed a poor quality but showed some possible bibasilar atelectasis as well. We will continue to monitor. Prognosis guarded. I would also recommend some albuterol inhalers. Further recommendations to follow. JOHAN / REGGIEN: [id number] / MTDD
[2021-03-23] MEDS ORDERED: METOPROLOL TARTRATE 25 MG TAB PO STA (00:17)
[2021-03-23] MEDS: LEVOTHYROXINE 100 MCG TAB PO SCH (06:55)
[2021-03-23] MEDS: LEVOTHYROXINE 75 MCG TAB PO SCH (06:55)
[2021-03-23] MEDS: FUROSEMIDE 40 MG TAB PO SCH (06:55)
--- NOTE | 2021-03-23 07:24 | XR ---
EXAMINATION TYPE: XR chest 1V portable DATE OF EXAM: 03/23/2021 CLINICAL HISTORY: Difficulty breathing and CHF progress study. TECHNIQUE: Single AP portable semiupright view of the chest is obtained. COMPARISON: Chest x-ray from one day earlier and older studies. FINDINGS: Chronic parenchymal changes including left basilar scarring and/or atelectasis. Persistent lateral right mid lung opacity. Persistent cardiomegaly with metallic aortic valve and left atrial a ppendage clip along with ectatic thoracic aorta causing right-sided tracheal deviation. Degenerative change bilateral glenohumeral joints. Surgical clips right hilar level redemonstrated. IMPRESSION: Persistent lateral right midlung acute infiltrate on background cardiomegaly and chronic changes. No significant change from one day earlier.
[2021-03-23] MEDS: FORMOTEROL FUMARATE 20 MCG/2 ML NEBU INHALATION SCH ×2 (07:40→19:25)
[2021-03-23] MEDS: IPRATROPIUM-ALBUTEROL 3 ML NEB INHALATION SCH ×4 (07:40→19:25)
--- NOTE | 2021-03-23 08:11 | P.CONS ---
History of Present Illness - Reason for Consult Consult date: 03/22/21 bacteremia Requesting physician: Temo Page - Chief Complaint scrotal bleeding x 1 day - History of Present Illness History of present illness : Patient is 76-year male presenting to the ER yesterday afternoon for evaluation of scrotal bleeding no history of any trauma history was provided by the as the patient apparently has dementia and was unable to void treated spouse stated that the patient calls the injury by scratching patient on presentation the hospital was noticed to have a normal heart rate and low blood pressure patient did have a no fever on presentation to the hospital and no fever subsequently patient did have white count of 13.4 with a left shift D-dimer was elevated patient did have elevated BUN and creatinine as well as bilirubin urine was negative pineda PCR was negative patient did have blood cultures drawn which did show she was gram-positive cocci that has prompted this infectious disease consultation patient is currently being treated with the on Zosyn chest x-ray finding consistent with moderate to mild CHF patient herself denies having any chest pain is complaining of some shortness of breath no cough no nausea no vomiting no abdominal pain no diarrhea and denies any burning or frequency of urine or wound history remains to be limited Review of system: CONSTITUTIONAL: Positive for weakness denies fever. EYES: No complaint. ENT: No complaint. RESPIRATORY: As per history of present illness. CARDIOVASCULAR: No complaint. GENITOURINARY: As per history of present illness GASTROINTESTINAL: No complaint. MUSCULOSKELETAL: No complaint. INTEGUMENTARY: No complaint. PSYCHOLOGIC: No complaint. ENDOCRINE: No complaint. NEUROLOGIC: No complaint. Past medical history : Reviewed, documented below Past surgical history : Reviewed, documented below Social history: Reviewed, documented below Medications: Reviewed, as documented below EXAMINATION: Vital sigans= Reviewed and documented below GENERAL DESCRIPTION: Elderly male lying in bed, no distress. No tachypnea or accessory muscle of respiration use. HEENT: Shows Pallor , no scleral icterus. Oral mucous membrane is dry. NECK: Trachea central, no thyromegaly. LUNGS: Unlabored breathing. Decreased breath sound at the base. No wheeze or crackle. HEART: S1, S2, regular rate and rhythm. ABDOMEN: Soft, no tenderness , guarding or rigidity EXTREMITIES: No edema of feet. SKIN: No rash, no masses palpable. NEUROLOGICAL: The patient is awake, alert, oriented x2, mood and affect normal. LABS AND RADIOLOGY: Reviewed results see below Assessment : 1-patient with Enterococcus faecalis bacteremia in this patient presented to hospital with scrotal bleeding noticed to have low pulse and blood pressure chest x-ray has been suggestive for CHF question for possible endovascular source patient urine was negative and abdominal soft on clinical examination Plan: 1-blood cultures will be repeated document clearance of his bacteremia 2-we will wait for the echocardiogram to be completed 3-discontinue Zosyn 4-start the patient on Unasyn 3 g every 6 hours while waiting for the culture to finalize We will follow on clinical condition and cultures to further adjust medication if needed Thank you for this consultation we will follow the patient along with you Past Medical History Past Medical History: Atrial Fibrillation, Cancer, Heart Failure, Dementia, Deep Vein Thrombosis (DVT), Hyperlipidemia, Hypertension, Osteoarthritis (OA), Pulmonary Embolus (PE), Thyroid Disorder, Vascular Disorder Additional Past Medical History / Comment(s): THYROID CANCER with surgery/radio active tablets, bilateral lower leg cellulitis 2015, varicose veins, past DVTs and PEs, short term memory problems, episodes of hypotension, hiatal hernia, gastritis. Insomnia. Depression. Atrial fibrillation. History of Any Multi-Drug Resistant Organisms: None Reported Past Surgical History: Cardiac Valve Replacement, Heart Catheterization, Joint Replacement Additional Past Surgical History / Comment(s): Thyroidectomy, total left knee replacement, JAYDE/CVN, 09/29/16 aortic valve replacement with bovine valve and mitral valve repair, mediastinal lymph node biopsy, sternal chest wound debridement/ wound vac/sternotomy and muscle straps, COLONOSCOPY, EGD, bilateral cataract removals and L eye was injured requirin surgery to remove blood. Past Anesthesia/Blood Transfusion Reactions: No Reported Reaction Additional Past Anesthesia/Blood Transfusion Reaction / Comm: Pt has received blood in past without reaction. Smoking Status: Former smoker - Past Family History Father Family Medical History: Coronary Artery Disease (CAD) Additional Family Medical History / Comment(s): Father at the age pf 76yrs from heart problems. Mother Family Medical History: Vascular Disorder Additional Family Medical History / Comment(s): Mother had varicosities. She lived to be 92 yrs old. Brother(s) Family Medical History: Cancer Additional Family Medical History / Comment(s): LIVER CA. BLOOD CLOT. Medications and Allergies Home Medications Medication Instructions Recorded Confirmed Type Apixaban [Eliquis] 5 mg PO BID 05/30/19 03/21/21 History Amiodarone [Cordarone] 100 mg PO DAILY 12/01/20 03/21/21 History Atorvastatin [Lipitor] 10 mg PO HS 12/01/20 03/21/21 History Diltiazem HCl [Cartia Xt] 120 mg PO DAILY 12/01/20 03/21/21 History Furosemide [Lasix] 40 mg PO BID 12/01/20 03/21/21 History Levothyroxine Sodium [Synthroid] 175 mcg PO DAILY 12/01/20 03/21/21 History Metoprolol Tartrate [Lopressor] 100 mg PO BID 12/01/20 03/21/21 History lisinopriL [Zestril] 2.5 mg PO DAILY 12/01/20 03/21/21 History Ipratropium-Albuterol Nebulize 3 ml INHALATION RT-QID PRN #300 ml 12/12/20 03/21/21 Rx [Duoneb 0.5 mg-3 mg/3 ml Soln] Umeclidinium Brm/Vilanterol Tr 1 puff INHALATION RT-BID #1 device 12/12/20 03/21/21 Rx [Anoro Ellipta 62.5-25 Mcg INH] Allergies Allergy/AdvReac Type Severity Reaction Status Date / Time No Known Allergies Allergy Verified 03/21/21 16:10 Physical Exam Vitals: Vital Signs Temp Pulse Pulse Resp BP BP Pulse Ox 03/22/21 14:00 20 03/22/21 12:58 72 03/22/21 12:43 66 03/22/21 11:41 80 20 91/60 96 03/22/21 08:20 114 H 18 03/22/21 08:08 118 H 22 96 03/22/21 08:00 97.6 F 116 H 20 102/60 98 03/22/21 04:00 97.6 F 88 20 108/69 96 03/22/21 00:00 97.5 F L 70 20 99/65 96 03/21/21 21:44 57 L 03/21/21 21:34 57 L 03/21/21 20:00 97.4 F L 60 22 101/69 98 03/21/21 18:45 57 L 20 88/57 98 03/21/21 17:15 98.2 F 62 20 91/66 98 03/21/21 16:30 61 20 85/62 98 03/21/21 15:37 52 L 20 88/55 98 03/21/21 14:52 54 L 20 86/67 99 Intake and Output 03/21/21 03/22/21 03/22/21 22:59 06:59 14:59 Intake Total 658 780 Output Total 150 1050 Balance 508 -1050 780 Intake: Intake, IV Titration 300 Amount Piperacillin-Tazobactam 3 100 .375 gm In Sodium Chloride 0.9% 100 ml @ 25 mls/hr IVPB Q8HR [facility] Rx# :[id number] Sodium Chloride 0.9% 1, 200 000 ml @ 50 mls/hr IV . Q20H [facility] Rx#:[id number] Oral 658 480 Output: Urine 150 1050 Other: Voiding Method Urinal Urinal Urinal # Voids 1 3 # Bowel Movements 1 Weight 92.986 kg 105.5 kg Results CBC & Chem 7: 03/22/21 05:33 03/22/21 11:51 Labs: Abnormal Lab Results - Last 24 Hours (Table) 03/21/21 03/21/21 03/21/21 Range/Units 13:32 17:20 20:03 RBC (4.30-5.90) m/uL Hgb (13.0-17.5) gm/dL Hct (39.0-53.0) % RDW (11.5-15.5) % Plt Count (150-450) k/uL Neutrophils # (1.3-7.7) k/uL Lymphocytes # (1.0-4.8) k/uL ESR 28 H (0-15) mm/hr D-Dimer (<0.60) mg/L FEU Sodium (137-145) mmol/L Potassium (3.5-5.1) mmol/L Carbon Dioxide (22-30) mmol/L BUN (9-20) mg/dL Creatinine (0.66-1.25) mg/dL Glucose (74-99) mg/dL Calcium (8.4-10.2) mg/dL Total Bilirubin (0.2-1.3) mg/dL Troponin I 0.077 H* (0.000-0.034) ng/mL C-Reactive Protein (<1.0) mg/dL Albumin (3.5-5.0) g/dL Urine Blood Large H (Negative) Urine RBC 20 H (0-5) /hpf Hyaline Casts 4 H (0-2) /lpf Urine Mucus Rare H (None) /hpf 03/21/21 03/21/21 03/22/21 Range/Units 20:03 20:03 05:33 RBC 3.83 L (4.30-5.90) m/uL Hgb 11.3 L (13.0-17.5) gm/dL Hct 35.2 L (39.0-53.0) % RDW 17.2 H (11.5-15.5) % Plt Count 79 L (150-450) k/uL Neutrophils # 8.7 H (1.3-7.7) k/uL Lymphocytes # 0.3 L (1.0-4.8) k/uL ESR (0-15) mm/hr D-Dimer 4.05 H (<0.60) mg/L FEU Sodium (137-145) mmol/L Potassium (3.5-5.1) mmol/L Carbon Dioxide (22-30) mmol/L BUN (9-20) mg/dL Creatinine (0.66-1.25) mg/dL Glucose (74-99) mg/dL Calcium (8.4-10.2) mg/dL Total Bilirubin (0.2-1.3) mg/dL Troponin I (0.000-0.034) ng/mL C-Reactive Protein 15.9 H (<1.0) mg/dL Albumin (3.5-5.0) g/dL Urine Blood (Negative) Urine RBC (0-5) /hpf Hyaline Casts (0-2) /lpf Urine Mucus (None) /hpf 03/22/21 Range/Units 05:33 RBC (4.30-5.90) m/uL Hgb (13.0-17.5) gm/dL Hct (39.0-53.0) % RDW (11.5-15.5) % Plt Count (150-450) k/uL Neutrophils # (1.3-7.7) k/uL Lymphocytes # (1.0-4.8) k/uL ESR (0-15) mm/hr D-Dimer (<0.60) mg/L FEU Sodium 134 L (137-145) mmol/L Potassium 3.3 L (3.5-5.1) mmol/L Carbon Dioxide 21 L (22-30) mmol/L BUN 53 H (9-20) mg/dL Creatinine 1.84 H (0.66-1.25) mg/dL Glucose 129 H (74-99) mg/dL Calcium 6.7 L (8.4-10.2) mg/dL Total Bilirubin 1.5 H (0.2-1.3) mg/dL Troponin I (0.000-0.034) ng/mL C-Reactive Protein (<1.0) mg/dL Albumin 2.6 L (3.5-5.0) g/dL Urine Blood (Negative) Urine RBC (0-5) /hpf Hyaline Casts (0-2) /lpf Urine Mucus (None) /hpf Microbiology - Last 24 Hours (Table) 03/21/21 13:32 Blood Culture Gram Stain - Preliminary Blood Blood Culture - Preliminary Enterococcus faecalis 03/21/21 13:32 Blood Culture Gram Stain - Preliminary Blood 03/21/21 13:32 Blood Culture - Final Blood 03/21/21 13:32 Blood Culture - Final Blood
--- NOTE | 2021-03-23 10:18 | NM ---
EXAMINATION TYPE: NM pul vent and perfuse DATE OF EXAM: 03/23/2021 COMPARISON: Chest x-ray from earlier today HISTORY: Shortness of breath TECHNIQUE: Utilizing inhalation of 68.5 mCi Tc 99m DTPA aerosol and intravenous injection of 5.1 mCi of Tc 99m MAA, ventilation and perfusion images are acquired post injection in multiple projections. FINDINGS: Some central clumping of particles on ventilation images consistent with underlying COPD. Small to mo derate-sized matching defects greatest in the right lung There is no evidence of mismatched defects. IMPRESSION: Low probability for acute pulmonary embolism
[2021-03-23] MEDS: AMIODARONE 100 MG TAB PO SCH (10:40)
[2021-03-23] MEDS: DILTIAZEM CD 120 MG CAP.ER.24H PO SCH (10:40)
[2021-03-23] MEDS: METOPROLOL TARTRATE 50 MG TAB PO SCH ×2 (10:40→20:35)
[2021-03-23] MEDS: AMPICILLIN-SULBACTAM 3 GM in SODIUM CHLORIDE 0.9% 100 ML IVPB SCH ×3 (10:41→23:26)
--- NOTE | 2021-03-23 11:24 | P.PN ---
Subjective 68-year-old male admitted because of bleeding from the scrotum patient is found to be bacteremic later possible source is probably skin breakdown at the scrotal area. Patient enterococcal bacteremia bacteremia and patient is on Unasyn for that. Patient does have history of atrial fibrillation. Patient probably has a chronic diastolic dysfunction patient appears to be volume overloaded with some pulmonary edema bibasilar crackles on lung exam patient will be switched IV Lasix IV fluids will be discontinued. Patient blood pressure is low normal because of which I will hold off on lisinopril. Patient had normal ejection fraction the past patient had a VQ scan today which showed normal ejection fraction. Patient has elevated creatinine of 1.84 patient was in acute renal failure and patient which improved. Constitutional: Denied any fatigue denied any fever. Cardio vascular: denied any chest pain, palpitations Gastrointestinal denied any nausea vomiting Pulmonary: Denied any shortness of breath cough Neurologic denied any new focal deficits All inpatient medications were reviewed and appropriate changes in these medications as dictated in the interval history and assessment and plan. PHYSICAL EXAMINATION: GENERAL: The patient is alert and oriented x3, not in any acute distress. Well developed, well nourished. HEENT: Pupils are round and equally reacting to light. EOMI. No scleral icterus. No conjunctival pallor. Normocephalic, atraumatic. No pharyngeal erythema. No thyromegaly. CARDIOVASCULAR: S1 and S2 present. No murmurs, rubs, or gallops. Tachycardic irregularly irregular PULMONARY: Good air entry into bilateral lung elam bibasilar crackles patient is on 2 L of oxygen which he uses at home ABDOMEN: Soft, nontender, nondistended, normoactive bowel sounds. No palpable organomegaly. MUSCULOSKELETAL: No joint swelling or deformity. EXTREMITIES: No cyanosis, clubbing, does have pedal edema NEUROLOGICAL: Gross neurological examination did not reveal any focal deficits. SKIN: No rashes. Assessment and plan -Sepsis and bacteremia with Enterococcus faecalis secondary to skin breakdown and scrotal bleeding which resolved at this time. Patient is on Unasyn which will continue repeat blood cultures are so far negative -Congestive heart failure possible chronic diastolic dysfunction with acute e xacerbation patient will be switched to IV Lasix -Acute renal failure: Probably secondary to congestive heart failure prerenal azotemia patient was started on Lasix, monitor creatinine. -Chronic kidney disease stage III possible hypertensive sclerosis -Hyperlipidemia -Hypertension report ensue hold off on lisinopril -Atrial fibrillation with rapid rate cardio his following the patient patient is presently on Cardizem, anti-correlation is on hold probably can be restarted back patient is scrotal bleeding resolved at this time -History of dementia possibly vascular -Depression -Ruled out pulmonary embolism with a VQ scan which showed low probability for PE DVT prophylaxis: SCDs Objective - Vital Signs Vital signs: Vital Signs Temp 97.6 F 03/23/21 08:55 Pulse 92 03/23/21 10:57 Resp 16 03/23/21 08:55 BP 90/59 03/23/21 08:55 Pulse Ox 97 03/23/21 08:55 Intake & Output 03/22/21 03/23/21 03/23/21 18:59 06:59 18:59 Intake Total 1020 0 Balance 1020 0 Weight 105 kg Intake: Intake, IV Titration 300 Amount Piperacillin-Tazobactam 3 100 .375 gm In Sodium Chloride 0.9% 100 ml @ 25 mls/hr IVPB Q8HR [facility] Rx# :[id number] Sodium Chloride 0.9% 1, 200 000 ml @ 50 mls/hr IV . Q20H [facility] Rx#:[id number] Oral 720 0 Other: Voiding Method Urinal Urinal Urinal # Voids 2 # Bowel Movements 1 - Labs CBC & Chem 7: 03/22/21 05:33 03/22/21 11:51 Labs: Abnormal Lab Results - Last 24 Hours (Table) 03/23/21 Range/Units 08:20 C-Reactive Protein 16.5 H (<1.0) mg/dL Microbiology - Last 24 Hours (Table) 03/22/21 05:33 Blood Culture Gram Stain - Preliminary Blood 03/22/21 05:33 Blood Culture - Final Blood 03/21/21 13:32 Blood Culture Gram Stain - Preliminary Blood Blood Culture - Preliminary Enterococcus faecalis 03/21/21 13:32 Blood Culture Gram Stain - Preliminary Blood
[2021-03-23] MEDS: FUROSEMIDE 10 MG/ML 4 ML VIAL IV SCH ×2 (12:22→20:35)
--- NOTE | 2021-03-23 12:40 | P.PN ---
Subjective History of present illness: This is a 76-year-old male patient with past medical history of mitral valve repair, aortic valve replacement 2017, chronic atrial fibrillation, hypertension, hyperlipidemia, paroxysmal atrial fibrillation, dementia and sternal infection s/p open heart surgery that required surgical intervention. Patient is unable to provide information and information is obtained from the patient's at bedside. Patient apparently developed bleeding from the scrotal area which his states was probably from him scratching. Due to him being on eliquis, there was significant bleeding and patient was taken to the emergency center for further evaluation. He was found to be quite hypotensive at 79/64 heart rate was in the 50s. He was given IV fluid bolus of 500 with some improvement of his blood pressure. EKG was atrial fibrillation at rate of 59 bpm. WBC 13.4, hemoglobin 11.5, platelet count 76. Sodium 134, potassium 3.8, BUN 66 and creatinine 2.29. D-dimer 4.05. Troponin 0.077. ProBNP 11,400. Coronavirus PCR not detected. Urinalysis positive for blood. Chest x-ray reveals mild to moderate heart failure. 03/23/2021 Pt is seen and examined sitting up in bed with family at the bedside. He states he is still noticing some blood on his scrotum, however the nurse didn't see anything when cleaning him up. Blood pressure 99/70 heart rate 96 afebrile and maintaining oxygen saturation on nasal cannula. Laboratory data reviewed, ESR 29 and CRP 16.5. VQ scan is low probability for PE. Chest x-ray reveals lateral right mid lung with an acute infiltrate. No change from previous. Physical examination: Gen: This is a a 76-year-old male. He is resting in bed and appears to be comfortable. HEENT: Head is atraumatic, normocephalic. Pupils equal, round. Sclerae is anicteric. NECK: Supple. No JVD. No lymphadenopathy. No thyromegaly. LUNGS: Diminished breath sounds, few scattered rhonchi. No intercostal retractions. HEART: Irregular rate and rhythm. Systolic ejection murmur. EXTREMITIES: No pedal edema. No calf tenderness. Assessment: Scrotal bleeding, stable Paroxysmal atrial fibrillation on eliquis Bactermia Status post mitral valve repair and aortic valve replacement History of sternal infection s/p open heart surgery Preliminary blood culture positive for Enterococcus faecalis Hypertension Hyperlipidemia Dementia Plan: Hold eliquis for 1 week then resume as an outpatient. We will follow along as needed. Nurse practitioner note has been reviewed, I agree with documented findings and plan of care. Patient was seen and examined. Objective - Vital Signs Vital signs: Vital Signs Temp 96.8 F L 03/23/21 11:35 Pulse 96 03/23/21 11:35 Resp 16 03/23/21 11:35 BP 99/70 03/23/21 11:35 Pulse Ox 97 03/23/21 11:35 Intake & Output 03/22/21 03/23/21 03/23/21 18:59 06:59 18:59 Intake Total 1020 0 Output Total 1 Balance 1020 -1 Weight 105 kg Intake: Intake, IV Titration 300 Amount Piperacillin-Tazobactam 3 100 .375 gm In Sodium Chloride 0.9% 100 ml @ 25 mls/hr IVPB Q8HR [facility] Rx# :[id number] Sodium Chloride 0.9% 1, 200 000 ml @ 50 mls/hr IV . Q20H [facility] Rx#:[id number] Oral 720 0 Output: Stool 1 Other: Voiding Method Urinal Urinal Urinal # Voids 2 # Bowel Movements 1 - Labs CBC & Chem 7: 03/22/21 05:33 03/22/21 11:51 Labs: Abnormal Lab Results - Last 24 Hours (Table) 03/23/21 03/23/21 Range/Units 08:20 08:20 ESR 29 H (0-15) mm/hr C-Reactive Protein 16.5 H (<1.0) mg/dL Microbiology - Last 24 Hours (Table) 03/22/21 05:33 Blood Culture Gram Stain - Preliminary Blood 03/22/21 05:33 Blood Culture - Final Blood 03/21/21 13:32 Blood Culture Gram Stain - Preliminary Blood Blood Culture - Preliminary Enterococcus faecalis 03/21/21 13:32 Blood Culture Gram Stain - Preliminary Blood
[2021-03-23] MEDS: ATORVASTATIN 10 MG TAB PO SCH (20:35)
[2021-03-24] MEDS: LEVOTHYROXINE 100 MCG TAB PO SCH (06:12)
[2021-03-24] MEDS: LEVOTHYROXINE 75 MCG TAB PO SCH (06:12)
[2021-03-24 08:07] LABS: Anisocytosis Slight; HCT 35.7 % (39.0-53.0); HGB 11.2 gm/dL (13.0-17.5); Hypochromasia Slight; MCH 29.3 pg (25.0-35.0); MCHC 31.4 g/dL (31.0-37.0); MCV 93.3 fL (80.0-100.0); Mean Platelet Volume 9.4; RBC 3.82 m/uL (4.30-5.90); RDW 16.9 % (11.5-15.5); WBC 17.5 k/uL (3.8-10.6)
[2021-03-24 08:15] LABS: Platelet Count 75 k/uL (150-450)
[2021-03-24 08:20] LABS: Potassium 3.7 mmol/L (3.5-5.1)
[2021-03-24] MEDS: AMPICILLIN-SULBACTAM 3 GM in SODIUM CHLORIDE 0.9% 100 ML IVPB SCH ×2 (08:27→21:30)
[2021-03-24] MEDS: IPRATROPIUM-ALBUTEROL 3 ML NEB INHALATION SCH ×4 (08:51→19:48)
[2021-03-24] MEDS: FORMOTEROL FUMARATE 20 MCG/2 ML NEBU INHALATION SCH ×2 (08:51→19:48)
[2021-03-24] MEDS: FUROSEMIDE 10 MG/ML 4 ML VIAL IV SCH (09:01)
[2021-03-24] MEDS: DILTIAZEM CD 120 MG CAP.ER.24H PO SCH (09:01)
[2021-03-24] MEDS: METOPROLOL TARTRATE 50 MG TAB PO SCH ×2 (09:01→21:29)
[2021-03-24] MEDS: AMIODARONE 100 MG TAB PO SCH (09:01)
--- NOTE | 2021-03-24 09:31 | XR ---
EXAMINATION TYPE: XR chest 1V portable DATE OF EXAM: 03/24/2021 HISTORY: Shortness of breath. COMPARISON: 03/23/2021 TECHNIQUE: Single view of the chest is submitted. FINDINGS: Demonstrated are scattered senescent parenchymal change. Scattered nonspecific infiltrates persist without significant change. The heart is stable. Hilar and mediastinal structures are within normal limits. Degenerative changes are seen of the dorsal spine. IMPRESSION: 1. Scattered nonspecific infiltrates persist without significant change.
[2021-03-24] MEDS: SODIUM CHLORIDE 0.9% 1,000 ML IV SCH (11:33)
[2021-03-24] MEDS ORDERED: POTASSIUM CHLORIDE ER 20 MEQ TAB.ER PO SCH (12:00)
--- NOTE | 2021-03-24 13:26 | P.PN ---
Subjective History of present illness: This is a 76-year-old male patient with past medical history of mitral valve repair, aortic valve replacement 2017, chronic atrial fibrillation, hypertension, hyperlipidemia, paroxysmal atrial fibrillation, dementia and sternal infection s/p open heart surgery that required surgical intervention. Patient is unable to provide information and information is obtained from the patient's at bedside. Patient apparently developed bleeding from the scrotal area which his states was probably from him scratching. Due to him being on eliquis, there was significant bleeding and patient was taken to the emergency center for further evaluation. He was found to be quite hypotensive at 79/64 heart rate was in the 50s. He was given IV fluid bolus of 500 with some improvement of his blood pressure. EKG was atrial fibrillation at rate of 59 bpm. WBC 13.4, hemoglobin 11.5, platelet count 76. Sodium 134, potassium 3.8, BUN 66 and creatinine 2.29. D-dimer 4.05. Troponin 0.077. ProBNP 11,400. Coronavirus PCR not detected. Urinalysis positive for blood. Chest x-ray reveals mild to moderate heart failure. 03/24/2021 Pt seen and examined sitting up in bed in no acute distress. He denies shortness of breath but is visibly tachypneic on room air. He denies chest pain, dizziness or palpitations. Blood pressures this morning 79/50 then 90/55 heart rates in the 60s. Laboratory data reviewed, WBC 17.5, hgb 11.2, plt 75, sodium 137, potassium 3.7, creatinine 2.34. He was initiated on IV lasix yesterday per the primary care team. Chest xray this morning reveals scattered infiltrates. Physical examination: Gen: This is a a 76-year-old male. He is resting in bed and appears to be comfortable. HEENT: Head is atraumatic, normocephalic. Pupils equal, round. Sclerae is anicteric. NECK: Supple. No JVD. No lymphadenopathy. No thyromegaly. LUNGS: Scattered rhonchi, no wheezes or rales. HEART: Irregular rate and rhythm. Systolic ejection murmur. EXTREMITIES: 1+ bilateral lower extremity pitting edema. No calf tenderness. Assessment: Scrotal bleeding, stable Paroxysmal atrial fibrillation on eliquis at home, currently on hold for scrotal wound bleeding. Bactermia Suspect pneumonia Status post mitral valve repair and aortic valve replacement History of sternal infection s/p open heart surgery Preliminary blood culture positive for Enterococcus faecalis Leukocytosis Thrombocytopenia Acute on chronic kidney disease Hypertension Hyperlipidemia Dementia Plan: Discontinue IV diuretics. Gentle hydration with NS at 50cc/hr. Check procalcitonin. Repeat BMP in the morning. Further recommendations to follow based on clinical course. Nurse practitioner note has been reviewed, I agree with documented findings and plan of care. Patient was seen and examined. Objective - Vital Signs Vital signs: Vital Signs Temp 97.8 F 03/24/21 11:13 Pulse 62 03/24/21 11:13 Resp 24 03/24/21 11:13 BP 90/55 03/24/21 11:13 Pulse Ox 97 03/24/21 11:13 Intake & Output 03/23/21 03/24/21 03/24/21 18:59 06:59 18:59 Intake Total 0 135 360 Output Total 602 300 Balance -602 -165 360 Weight 97.3 kg Intake: Intake, IV Titration 135 Amount Ampicillin-Sulbactam 3 gm 100 In Sodium Chloride 0.9% 100 ml @ 200 mls/hr IVPB Q8HR [facility] Rx#:[id number] Sodium Chloride 0.9% 1, 35 000 ml @ 50 mls/hr IV . Q20H [facility] Rx#:[id number] Oral 0 360 Output: Urine 600 300 Stool 2 Other: Voiding Method External Catheter External Catheter External Catheter # Voids 1 - Labs CBC & Chem 7: 03/24/21 07:36 03/24/21 07:36 Labs: Abnormal Lab Results - Last 24 Hours (Table) 03/24/21 03/24/21 Range/Units 07:36 07:36 WBC 17.5 H (3.8-10.6) k/uL RBC 3.82 L (4.30-5.90) m/uL Hgb 11.2 L (13.0-17.5) gm/dL Hct 35.7 L (39.0-53.0) % RDW 16.9 H (11.5-15.5) % Plt Count 75 L (150-450) k/uL BUN 50 H (9-20) mg/dL Creatinine 2.34 H (0.66-1.25) mg/dL Glucose 113 H (74-99) mg/dL Calcium 7.0 L (8.4-10.2) mg/dL Microbiology - Last 24 Hours (Table) 03/22/21 05:33 Blood Culture Gram Stain - Preliminary Blood Blood Culture - Preliminary Group D Enterococcus 03/23/21 08:20 Blood Culture - Preliminary Blood No Growth after 24 hours 03/21/21 13:32 Blood Culture Gram Stain - Preliminary Blood Blood Culture - Preliminary Group D Enterococcus 03/21/21 13:32 Blood Culture Gram Stain - Preliminary Blood Blood Culture - Preliminary Enterococcus faecalis
--- NOTE | 2021-03-24 14:30 | P.PN ---
Subjective Progress Note Date: 03/24/21 68-year-old male admitted because of bleeding from the scrotum patient is found to be bacteremic later possible source is probably skin breakdown at the scrotal area. Patient enterococcal bacteremia bacteremia and patient is on Unasyn for that. Patient does have history of atrial fibrillation. Patient probably has a chronic diastolic dysfunction patient appears to be volume overloaded with some pulmonary edema bibasilar crackles on lung exam patient will be switched IV Lasix IV fluids will be discontinued. Patient blood pressure is low normal because of which I will hold off on lisinopril. Patient had normal ejection fraction the past patient had a VQ scan today which showed normal ejection fr action. Patient has elevated creatinine of 1.84 patient was in acute renal failure and patient which improved. 03/24/2021 Patient is resting comfortably in the bed he denies any current pain. Patient does have some 3+ pitting edema, lungs are crackles in the bases and throughout the posterior lung elam. Patient repeat chest x-ray today that we demonstrated scattered infiltrates, x-rays reviewed and does appear to be fluid overload status. His BNP on admission was 11,400. Patient's hypotensive this morning at 79/50. Prior to that it was 85/56. Patient is 95% on 3 L nasal cannula. Cardiac meds are held this morning, pending reconsultation. Other vitals include a temp of 98.1, heart rate 68 A. fib. Labs today reveal a white count of 17.5, hemoglobin 11.2. Sodium is 137, potassium 3.7, BUN 50, creatinine 2.34. Patient's glucose is 113. CRP is 16.5. Blood cultures are currently pending repeat. ROS Constitutional: Denied any fatigue denied any fever. Cardio vascular: denied any chest pain, palpitations Gastrointestinal denied any nausea vomiting Pulmonary: Denied any shortness of breath cough Neurologic denied any new focal deficits All inpatient medications were reviewed and appropriate changes in these medications as dictated in the interval history and assessment and plan. PHYSICAL EXAMINATION: GENERAL: The patient is alert and oriented x3, not in any acute distress. Well developed, well nourished. HEENT: Pupils are round and equally reacting to light. EOMI. No scleral icterus. No conjunctival pallor. Normocephalic, atraumatic. No pharyngeal erythema. No thyromegaly. CARDIOVASCULAR: S1 and S2 present. No murmurs, rubs, or gallops. Tachycardic irregularly irregular PULMONARY: Good air entry into bilateral lung elam bibasilar crackles patient is on 2 L of oxygen which he uses at home ABDOMEN: Soft, nontender, distended, normoactive bowel sounds. No palpable organomegaly. MUSCULOSKELETAL: No joint swelling or deformity. EXTREMITIES: No cyanosis, clubbing, does have pedal edema +3 NEUROLOGICAL: Gross neurological examination did not reveal any focal deficits. SKIN: No rashes. Assessment and plan -Sepsis and bacteremia with Enterococcus faecalis secondary to skin breakdown and scrotal bleeding which resolved at this time. Patient is on Unasyn which will continue repeat blood cultures are so far negative -Congestive heart failure possible chronic diastolic dysfunction with acute exacerbation. -Acute renal failure: Probably secondary to congestive heart failure prerenal azotemia, monitor blood pressure and creatinine -Chronic kidney disease stage III possible hypertensive sclerosis -Hyperlipidemia -Hypertension report ensue hold off on lisinopril -Atrial fibrillation with rapid rate cardio his following the patient patient is presently on Cardizem, anti-coagulation is on hold probably can be restarted back patient is scrotal bleeding resolved at this time -History of dementia possibly vascular -Depression -Ruled out pulmonary embolism with a VQ scan which showed low probability for PE DVT prophylaxis: SCDs Patient had amiodarone, metoprolol, IV Lasix held this morning for a blood pressure of 79/50. Repeat is still pending at this time. Due to creatinine of 2.34 which is significantly increased from yesterday of 1.84, Lasix has been placed on hold. It was discussed with patient extensively at the bedside reg arding his CODE STATUS and current medical condition. He is requiring hydration for sepsis however he is guarding quite a bit of fluid overload. We will add a nephrology consult and order a CT of the chest without contrast to follow-up chest x-ray. Objective - Vital Signs Vital signs: Vital Signs Temp 98.1 F 03/24/21 08:29 Pulse 68 03/24/21 08:29 Resp 23 03/24/21 08:29 BP 79/50 03/24/21 08:29 Pulse Ox 95 03/24/21 08:29 Intake & Output 03/23/21 03/24/21 03/24/21 18:59 06:59 18:59 Intake Total 0 135 360 Output Total 602 300 Balance -602 -165 360 Weight 97.3 kg Intake: Intake, IV Titration 135 Amount Ampicillin-Sulbactam 3 gm 100 In Sodium Chloride 0.9% 100 ml @ 200 mls/hr IVPB Q8HR ON LICENSE OF [facility] Rx#:[id number] Sodium Chloride 0.9% 1, 35 000 ml @ 50 mls/hr IV . Q20H ON LICENSE OF [facility] Rx#:[id number] Oral 0 360 Output: Urine 600 300 Stool 2 Other: Voiding Method External Catheter External Catheter External Catheter # Voids 1 - Labs CBC & Chem 7: 03/24/21 07:36 03/24/21 07:36 Labs: Abnormal Lab Results - Last 24 Hours (Table) 03/23/21 03/24/21 03/24/21 Range/Units 08:20 07:36 07:36 WBC 17.5 H (3.8-10.6) k/uL RBC 3.82 L (4.30-5.90) m/uL Hgb 11.2 L (13.0-17.5) gm/dL Hct 35.7 L (39.0-53.0) % RDW 16.9 H (11.5-15.5) % Plt Count 75 L (150-450) k/uL ESR 29 H (0-15) mm/hr BUN 50 H (9-20) mg/dL Creatinine 2.34 H (0.66-1.25) mg/dL Glucose 113 H (74-99) mg/dL Calcium 7.0 L (8.4-10.2) mg/dL Microbiology - Last 24 Hours (Table) 03/21/21 13:32 Blood Culture Gram Stain - Preliminary Blood Blood Culture - Preliminary Group D Enterococcus 03/21/21 13:32 Blood Culture Gram Stain - Preliminary Blood Blood Culture - Preliminary Enterococcus faecalis 03/22/21 05:33 Blood Culture Gram Stain - Preliminary Blood
[2021-03-24] MEDS ORDERED: SODIUM CHLORIDE 0.9% 500 ML 500 ML IV ONE (16:25)
--- NOTE | 2021-03-24 17:12 | CT ---
EXAMINATION TYPE: CT chest wo con DATE OF EXAM: 03/24/2021 COMPARISON: 12/18/2016 and 12/07/2020 HISTORY: Patient poor historian. CT DLP: 596.2 mGycm Automated exposure control for dose reduction was used. Exam from the thoracic inlet to the diaphragm with no contrast. There are bilateral mild pleural effusions. There is airspace infiltrate and atelectasis in both lowe r lobes and more on the right side. Heart is enlarged. There is cardiac valve surgery. There is no me diastinal adenopathy. There are no hilar masses. There is thoracic kyphotic deformity with 75% anterior wedging of T6 vertebra. There is also 25% wedg ing of T10 and 60% wedging of T12. The sternum is intact. There is limited visualization of the kidneys and there is apparent bilateral hydronephrosis. This ap pears new compared to old CT scan of the abdomen of 12/07/2020. IMPRESSION: Bilateral lower lobe pneumonia and atelectasis. Pleural effusions. Pleural fluid improved compared to old exam. Cardiomegaly. Abnormalities at the lung bases are not changed significantly compared to CT scan. There is new bilateral hydronephrosis compared to 12/07/2020 exam.
[2021-03-24] MEDS: DIGOXIN 250 MCG/ML 2 ML AMP IVP ONE ×2 (17:21→17:23)
[2021-03-24] MEDS ORDERED: DIGOXIN 250 MCG/ML 2 ML AMP IVP ONE (17:45)
[2021-03-24] MEDS: IOPAMIDOL CONTRAST (ORAL USE) VIAL PO PRN ×2 (18:18→19:22)
--- NOTE | 2021-03-24 18:36 | PN ---
PROGRESS NOTE DATE OF SERVICE: 03/24/2021 REASON FOR FOLLOWUP: Enterococcus faecalis bacteremia. INTERVAL HISTORY: Patient is afebrile. The patient is breathing comfortably. The patient denies having any chest pain, shortness of breath. Occasional cough. No abdominal pain. No vomiting or diarrhea. PHYSICAL EXAMINATION: Blood pressure is 84/56, pulse of 105, temperature of 97.9. He is 99% on 3 L nasal cannula. General description is an elderly male lying in bed in no distress. Respiratory system: Unlabored breathing, clear to auscultation anteriorly. Heart S1, S2. Regular rate and rhythm. Abdomen: Soft. No tenderness. LABS: Hemoglobin 11.1, white count of 78.5, BUN of 50, creatinine is 2.34. DIAGNOSTIC IMPRESSION AND PLAN: Patient with Enterococcus faecalis bacteremia. CT chest mentions bilateral hydronephrosis which is new. Possible urinary source. Echocardiogram is pending as well. A CT of abdomen and pelvis will be obtained with oral contrast. Continue Unasyn and monitor clinical course closely. Continue supportive care. MMODL / IJN: [id number] /
[2021-03-24] MEDS: ATORVASTATIN 10 MG TAB PO SCH (21:29)
--- NOTE | 2021-03-24 21:32 | CT ---
EXAMINATION TYPE: CT abdomen pelvis wo con DATE OF EXAM: 03/24/2021 COMPARISON: 12/07/2020 HISTORY: enteroccous bacteremia, hydronephrosis CT DLP: 1182.2 mGycm Automated exposure control for dose reduction was used. Exam from the diaphragm to the floor the pelvis with oral contrast. There is some patchy infiltrate and atelectasis at both lung bases. This is more on the right side. T here is mild pleural thickening at both lung bases. Liver is intact. Spleen is intact. There is no evidence of pancreatic mass. Stomach is intact. Gallbl adder appears absent. There is contrast material in the stomach and proximal small bowel. Small bowel is not dilated. There is no adrenal mass. Kidneys have normal size. There is some fullness of the left and right harshal l pelvis. There is large urinary bladder that measures 20 cm in length. There is no free fluid in the pelvis. There is no inguinal hernia. There is no mesenteric edema. There is no ascites or free air. There is no sign of a bowel obstructio n. The lumbar vertebra show a first-degree L5-S1 spondylolisthesis. There is L5 spondylolysis. There is T12 anterior wedging 40%. This appears old. The bony pelvis is intact. There is a small fat-containin g right anterior abdominal wall ventral hernia measuring 4 x 2 cm without change. IMPRESSION: There is some airspace infiltrate and atelectasis at both lung bases with pleural thickening that is not significantly different than last exam. Cardiomegaly. Mild bilateral hydronephrosis with dilated urinary bladder. Hydronephrosis probably secondary to the urinary retention. Urinary bladder is increased compared to old exam. Hydronephrosis is new compared to old exam.
[2021-03-25] MEDS: LEVOTHYROXINE 100 MCG TAB PO SCH (06:18)
[2021-03-25] MEDS: LEVOTHYROXINE 75 MCG TAB PO SCH (06:18)
[2021-03-25 06:50] LABS: Appearance,Urine Clear (Clear); Bacteria,Urine Rare /hpf; Bilirubin,Urine Negative (Negative); Blood,Urine Moderate (Negative); Color,Urine Yellow; Glucose,Urine (UA) Negative (Negative); Ketones,Urine Negative (Negative); Leukocyte Esterase,Urine Negative (Negative); Mucus,Urine Rare /hpf; Nitrite,Urine Negative (Negative); Protein,Urine Negative (Negative); RBC,Urine 26 /hpf (0-5); Specific Gravity,Urine 1.011 (1.001-1.035); Urobilinogen,Urine <2.0 mg/dL (<2.0); WBC,Urine <1 /hpf (0-5)
[2021-03-25] MEDS: IPRATROPIUM-ALBUTEROL 3 ML NEB INHALATION SCH ×4 (07:08→21:07)
[2021-03-25] MEDS: FORMOTEROL FUMARATE 20 MCG/2 ML NEBU INHALATION SCH ×2 (07:08→21:07)
[2021-03-25 07:47] LABS: Anisocytosis Slight; Basophils % (A) 0 %; Eosinophils # (A) 0.1 k/uL (0-0.7); Eosinophils % (A) 1 %; Lymphocytes # (A) 0.4 k/uL (1.0-4.8); Lymphocytes % (A) 4 %; MCH 29.2 pg (25.0-35.0); MCHC 31.3 g/dL (31.0-37.0); MCV 93.2 fL (80.0-100.0); Mean Platelet Volume 9.5; Monocytes # (A) 0.3 k/uL (0-1.0); Monocytes % (A) 2 %; Neutrophils # (A) 10.5 k/uL (1.3-7.7); Neutrophils % (A) 92 %; RBC 3.43 m/uL (4.30-5.90); WBC 11.4 k/uL (3.8-10.6)
[2021-03-25 07:51] LABS: Platelet Count 67 k/uL (150-450)
[2021-03-25 08:09] LABS: Calcium 6.6 mg/dL (8.4-10.2); Magnesium 2.2 mg/dL (1.6-2.3); Potassium 3.9 mmol/L (3.5-5.1)
[2021-03-25] MEDS: SODIUM CHLORIDE 0.9% 1,000 ML IV SCH (08:18)
[2021-03-25] MEDS: AMPICILLIN-SULBACTAM 3 GM in SODIUM CHLORIDE 0.9% 100 ML IVPB SCH (08:20)
[2021-03-25] MEDS: METOPROLOL TARTRATE 50 MG TAB PO SCH ×2 (09:30→20:15)
[2021-03-25] MEDS: DILTIAZEM CD 120 MG CAP.ER.24H PO SCH (09:32)
[2021-03-25] MEDS: DIGOXIN 250 MCG/ML 2 ML AMP IVP SCH (09:37)
[2021-03-25] MEDS: AMIODARONE 100 MG TAB PO SCH (09:37)
--- NOTE | 2021-03-25 10:05 | P.PN ---
Subjective History of present illness: This is a 76-year-old male patient with past medical history of mitral valve repair, aortic valve replacement 2017, chronic atrial fibrillation, hypertension, hyperlipidemia, paroxysmal atrial fibrillation, dementia and sternal infection s/p open heart surgery that required surgical intervention. Patient is unable to provide information and information is obtained from the patient's at bedside. Patient apparently developed bleeding from the scrotal area which his states was probably from him scratching. Due to him being on eliquis, there was significant bleeding and patient was taken to the emergency center for further evaluation. He was found to be quite hypotensive at 79/64 heart rate was in the 50s. He was given IV fluid bolus of 500 with some improvement of his blood pressure. EKG was atrial fibrillation at rate of 59 bpm. WBC 13.4, hemoglobin 11.5, platelet count 76. Sodium 134, potassium 3.8, BUN 66 and creatinine 2.29. D-dimer 4.05. Troponin 0.077. ProBNP 11,400. Coronavirus PCR not detected. Urinalysis positive for blood. Chest x-ray reveals mild to moderate heart failure. 03/25/2021 Patient seen and examined sitting up in bed in no acute distress. He has no symptoms of shortness of breath, dizziness, palpitations or chest discomfort. Blood pressure 84/53 heart rate 74 afebrile maintaining oxygen saturation on nasal cannula. Laboratory data reviewed, WBC 11.4, hemoglobin 10, platelets 67, sodium 135, potassium 3.9, creatinine 2.07 and magnesium 2.2. He continues to be in atrial fibrillation with controlled ventricular rates. CT of the chest performed last night revealed bilateral lower lobe pneumonia, pleural effusions and bilateral hydronephrosis. Last evening he was having some rapid ventricular rates and was given a one-time dose of IV digoxin. Physical examination: Gen: This is a a 76-year-old male. He is resting in bed and appears t o be comfortable. HEENT: Head is atraumatic, normocephalic. Pupils equal, round. Sclerae is anicteric. NECK: Supple. No JVD. No lymphadenopathy. No thyromegaly. LUNGS: Scattered rhonchi, no wheezes or rales. HEART: Irregular rate and rhythm. Systolic ejection murmur. EXTREMITIES: 1+ bilateral lower extremity pitting edema. No calf tenderness. Assessment: Scrotal bleeding, stable Paroxysmal atrial fibrillation on eliquis at home, currently on hold for scrotal wound bleeding. Episodes of RVR. Bactermia Suspect pneumonia Status post mitral valve repair and aortic valve replacement History of sternal infection s/p open heart surgery Preliminary blood culture positive for Enterococcus faecalis Leukocytosis Thrombocytopenia Acute on chronic kidney disease Hypertension Hyperlipidemia Dementia Plan: Hold Cardizem secondary to hypotension. Give Lopressor systolic blood pressures greater than 90. Continue amiodarone. Give digoxin 125 g IV push daily 3 days. Limited echocardiogram obtained and will be reviewed. Further recommendations to follow based upon clinical course. Nurse practitioner note has been reviewed, I agree with documented findings and plan of care. Patient was seen and examined. Objective - Vital Signs Vital signs: Vital Signs Temp 98.8 F 03/25/21 08:00 Pulse 74 03/25/21 08:00 Resp 25 H 03/25/21 08:00 BP 84/53 03/25/21 08:00 Pulse Ox 97 03/25/21 08:00 Intake & Output 03/24/21 03/25/21 03/25/21 18:59 06:59 18:59 Intake Total 2009 350 118 Output Total 3002 1 Balance 2009 117 Weight 100 kg Intake: Intake, IV Titration 850 350 Amount Ampicillin-Sulbactam 3 gm 100 In Sodium Chloride 0.9% 100 ml @ 200 mls/hr IVPB Q12HR [facility] Rx#:[id number] Ampicillin-Sulbactam 3 gm 100 In Sodium Chloride 0.9% 100 ml @ 200 mls/hr IVPB Q8HR [facility] Rx#:[id number] Sodium Chloride 0.9% 1, 250 250 000 ml @ 50 mls/hr IV . Q20H [facility] Rx#:[id number] Sodium Chloride 0.9% 500 500 ml 500 ml @ 999 mls/hr IV .Q31M [facility] Rx#:[id number] Oral 1160 118 Output: Urine 1500 Straight 1500 Post Void Residual 1500 Stool 2 1 Other: Voiding Method External Catheter External Catheter Diaper # Voids 2 3 - Labs CBC & Chem 7: 03/25/21 07:16 03/25/21 07:16 Labs: Abnormal Lab Results - Last 24 Hours (Table) 03/25/21 03/25/21 03/25/21 Range/Units 05:00 07:16 07:16 WBC 11.4 H (3.8-10.6) k/uL RBC 3.43 L (4.30-5.90) m/uL Hgb 10.0 L (13.0-17.5) gm/dL Hct 32.0 L (39.0-53.0) % RDW 17.0 H (11.5-15.5) % Plt Count 67 L (150-450) k/uL Neutrophils # 10.5 H (1.3-7.7) k/uL Lymphocytes # 0.4 L (1.0-4.8) k/uL Sodium 135 L (137-145) mmol/L BUN 52 H (9-20) mg/dL Creatinine 2.07 H (0.66-1.25) mg/dL Glucose 103 H (74-99) mg/dL Calcium 6.6 L (8.4-10.2) mg/dL Urine Blood Moderate H (Negative) Urine RBC 26 H (0-5) /hpf Urine Bacteria Rare H (None) /hpf Urine Mucus Rare H (None) /hpf Microbiology - Last 24 Hours (Table) 03/24/21 07:36 Blood Culture Gram Stain - Preliminary Blood 03/24/21 07:36 Blood Culture - Final Blood 03/21/21 13:32 Blood Culture Gram Stain - Final Blood Blood Culture - Final Enterococcus faecalis 03/21/21 13:32 Blood Culture Gram Stain - Final Blood Blood Culture - Final Enterococcus faecalis 03/22/21 05:33 Blood Culture Gram Stain - Preliminary Blood Blood Culture - Preliminary Group D Enterococcus 03/23/21 08:20 Blood Culture - Preliminary Blood No Growth after 24 hours
--- NOTE | 2021-03-25 10:11 | P.NPCON ---
History of Present Illness - Reason for Consult acute renal failure, chronic renal failure - History of Present Illness Reason for admission: Acute kidney injury on chronic kidney disease History of present illness: Patient is a 76-year-old male seen in renal consultation for acute kidney injury on chronic kidney disease. Patient has chronic kidney disease stage 3a with baseline creatinine in the range of 1.1-1.3. Creatinine peaked at 2.3 for this admission and is down to 2.07 today. He is currently maintained on normal saline at 50 mL an hour. No proteinuria on UA. Patient has preserved ejection fraction and moderate pulmonary hypertension. He was also receiving IV diuretics which were stopped yesterday. Patient had CAT scan done this admission which shows mild bilateral hydronephrosis. He currently does not have a Duong catheter. Patient is incontinent. Blood cultures are positive for enterococcus and he is maintained on antibiotics. Infectious disease is following. Currently denies chest pain or shortness of breath. Blood pressure was 84/53 this morning. No history of diabetes. Vital signs are stable. General: The patient appeared well nourished and normally developed. HEENT: Head exam is unremarkable. LUNGS: Breath sounds decreased. HEART: Rate and Rhythm are regular. ABDOMEN: Soft, no distention. EXTREMITITES: 1+ edema. Past Medical History Past Medical History: Atrial Fibrillation, Cancer, Heart Failure, Dementia, Deep Vein Thrombosis (DVT), Hyperlipidemia, Hypertension, Osteoarthritis (OA), Pulmonary Embolus (PE), Thyroid Disorder, Vascular Disorder Additional Past Medical History / Comment(s): THYROID CANCER with surgery/radio active tablets, bilateral lower leg cellulitis 2015, varicose veins, past DVTs and PEs, short term memory problems, episodes of hypotension, hiatal hernia, gastritis. Insomnia. Depression. Atrial fibrillation. History of Any Multi-Drug Resistant Organisms: None Reported Past Surgical History: Cardiac Valve Replacement, Heart Catheterization, Joint Replacement Additional Past Surgical History / Comment(s): Thyroidectomy, total left knee replacement, JAYDE/CVN, 09/29/16 aortic valve replacement with bovine valve and mitral valve repair, mediastinal lymph node biopsy, sternal chest wound debridement/ wound vac/sternotomy and muscle straps, COLONOSCOPY, EGD, bilateral cataract removals and L eye was injured requirin surgery to remove blood. Past Anesthesia/Blood Transfusion Reactions: No Reported Reaction Additional Past Anesthesia/Blood Transfusion Reaction / Comment(s): Pt has received blood in past without reaction. Smoking Status: Former smoker - Past Family History Father Family Medical History: Coronary Artery Disease (CAD) Additional Family Medical History / Comment(s): Father at the age pf 76yrs from heart problems. Mother Family Medical History: Vascular Disorder Additional Family Medical History / Comment(s): Mother had varicosities. She lived to be 92 yrs old. Brother(s) Family Medical History: Cancer Additional Family Medical History / Comment(s): LIVER CA. BLOOD CLOT. Medications and Allergies Home Medications Medication Instructions Recorded Confirmed Type Apixaban [Eliquis] 5 mg PO BID 05/30/19 03/21/21 History Amiodarone [Cordarone] 100 mg PO DAILY 12/01/20 03/21/21 History Atorvastatin [Lipitor] 10 mg PO HS 12/01/20 03/21/21 History Diltiazem HCl [Cartia Xt] 120 mg PO DAILY 12/01/20 03/21/21 History Furosemide [Lasix] 40 mg PO BID 12/01/20 03/21/21 History Levothyroxine Sodium [Synthroid] 175 mcg PO DAILY 12/01/20 03/21/21 History Metoprolol Tartrate [Lopressor] 100 mg PO BID 12/01/20 03/21/21 History lisinopriL [Zestril] 2.5 mg PO DAILY 12/01/20 03/21/21 History Ipratropium-Albuterol Nebulize 3 ml INHALATION RT-QID PRN #300 ml 12/12/20 03/21/21 Rx [Duoneb 0.5 mg-3 mg/3 ml Soln] Umeclidinium Brm/Vilanterol Tr 1 puff INHALATION RT-BID #1 device 12/12/20 03/21/21 Rx [Anoro Ellipta 62.5-25 Mcg INH] Allergies Allergy/AdvReac Type Severity Reaction Status Date / Time No Known Allergies Allergy Verified 03/21/21 16:10 Physical Exam Vitals: Vital Signs Temp Pulse Pulse Resp BP BP Pulse Ox 03/25/21 08:00 98.8 F 74 25 H 84/53 97 03/25/21 07:25 60 16 03/25/21 07:17 60 18 03/25/21 07:09 63 18 93 L 03/25/21 04:00 98.4 F 94 21 120/63 93 L 03/25/21 01:33 82 22 03/25/21 00:00 98.3 F 82 22 98/64 96 03/24/21 20:00 98.0 F 94 21 102/58 96 03/24/21 18:08 102/60 03/24/21 17:25 84/56 03/24/21 16:22 82/56 80/62 03/24/21 15:57 97.9 F 105 H 25 H 80/61 99 03/24/21 15:27 60 03/24/21 15:16 60 03/24/21 11:13 97.8 F 62 24 90/55 97 Intake and Output 03/24/21 03/25/21 03/25/21 22:59 06:59 14:59 Intake Total 1650 350 118 Output Total 1 3001 1 Balance 1649 -2651 117 Intake: Intake, IV Titration 850 350 Amount Ampicillin-Sulbactam 3 gm 100 In Sodium Chloride 0.9% 100 ml @ 200 mls/hr IVPB Q12HR [facility] Rx#:[id number] Ampicillin-Sulbactam 3 gm 100 In Sodium Chloride 0.9% 100 ml @ 200 mls/hr IVPB Q8HR [facility] Rx#:[id number] Sodium Chloride 0.9% 1, 250 250 000 ml @ 50 mls/hr IV . Q20H [facility] Rx#:[id number] Sodium Chloride 0.9% 500 500 ml 500 ml @ 999 mls/hr IV .Q31M [facility] Rx#:[id number] Oral 800 118 Output: Urine 1500 Straight 1500 Post Void Residual 1500 Stool 1 1 1 Other: Voiding Method External Catheter External Catheter Diaper # Voids 2 3 Weight 100 kg Results - Lab Results Most recent lab results Calcium 6.6 mg/dL (8.4-10.2) L 03/25/21 07:16 Magnesium 2.2 mg/dL (1.6-2.3) 03/25/21 07:16 03/25/21 07:16 03/25/21 07:16 Assessment and Plan Plan: Assessment: 1. Acute kidney injury secondary to ATN secondary to hypotension, diaphoresis an infection. Creatinine peaked at 2.3 for this admission and is 2.07 today. UA benign. Also has bilateral hydronephrosis concerning for obstructive uropathy. 2. Chronic kidney disease stage III with baseline creatinine in the range of 1.1-1.3 secondary to nephrosclerosis. 3. Bilateral hydronephrosis. 4. Enterococcus bacteremia and pneumonia on antibiotics. Infectious disease fo llowing. 5. Acute on chronic diastolic CHF with moderate pulmonary hypertension. 6. Hypocalcemia secondary to acute kidney injury. Corrected calcium 7.8. Plan: Maintain gentle IV hydration. Encourage oral intake. Check ionized calcium level. Consult urology for the hydronephrosis. Check a.m. cortisol level. Add midodrine. Continue to monitor renal function and urine output. Thank you for the consultation. I'll continue to follow patient with you during his hospital stay.
--- NOTE | 2021-03-25 11:19 | ECHOF ---
Referral Reason:cp MEASUREMENTS -------- HEIGHT: 172.7 cm WEIGHT: 97.1 kg BP: AV maxP.51 mmHg AV meanP.21 mmHg RAP: 5.00 mmHg RVSP: 28.15 mmHg FINDINGS -------- Limited Study Overall left ventricular systolic function is normal with, an EF between 55 - 60 %. Peak/mean gradient across the Aortic Valve is 23.51mmHg / 10.21mmHg. Normally functioning bioprosth etic valve. TAVR done The mitral valve leaflets are mildly thickened. Mild mitral annular calcification present. Mild m itral regurgitation is present. The peak and mean MV gradients are 13.20mmHg 3.33mmHg as measured by doppler. Mild tricuspid regurgitation present. Right ventricular systolic pressure is normal at < 35 mmHg. There is no pericardial effusion. CONCLUSIONS -------- 1. Limited Study 2. Overall left ventricular systolic function is normal with, an EF between 55 - 60 %. 3. Peak/mean gradient across the Aortic Valve is 23.51mmHg / 10.21mmHg. 4. Normally functioning bioprosthetic valve. 5. TAVR done 6. The mitral valve leaflets are mildly thickened. 7. Mild mitral annular calcification present. 8. Mild mitral regurgitation is present. 9. The peak and mean MV gradients are 13.20mmHg 3.33mmHg as measured by doppler. 10. Mild tricuspid regurgitation present. 11. There is no pericardial effusion. HEALTH CENTER ASSISTANT: Keesha Uribe RDCS
[2021-03-25] MEDS: MIDODRINE 5 MG TAB PO SCH ×2 (12:19→16:50)
--- NOTE | 2021-03-25 15:28 | P.PN ---
Subjective Progress Note Date: 03/25/21 68-year-old male admitted because of bleeding from the scrotum patient is found to be bacteremic later possible source is probably skin breakdown at the scrotal area. Patient enterococcal bacteremia bacteremia and patient is on Unasyn for that. Patient does have history of atrial fibrillation. Patient probably has a chronic diastolic dysfunction patient appears to be volume overloaded with some pulmonary edema bibasilar crackles on lung exam patient will be switched IV Lasix IV fluids will be discontinued. Patient blood pressure is low normal because of which I will hold off on lisinopril. Patient had normal ejection fraction the past patient had a VQ scan today which showed normal ejection fr action. Patient has elevated creatinine of 1.84 patient was in acute renal failure and patient which improved. 03/24/2021 Patient is resting comfortably in the bed he denies any current pain. Patient does have some 3+ pitting edema, lungs are crackles in the bases and throughout the posterior lung elam. Patient repeat chest x-ray today that we demonstrated scattered infiltrates, x-rays reviewed and does appear to be fluid overload status. His BNP on admission was 11,400. Patient's hypotensive this morning at 79/50. Prior to that it was 85/56. Patient is 95% on 3 L nasal cannula. Cardiac meds are held this morning, pending reconsultation. Other vitals include a temp of 98.1, heart rate 68 A. fib. Labs today reveal a white count of 17.5, hemoglobin 11.2. Sodium is 137, potassium 3.7, BUN 50, creatinine 2.34. Patient's glucose is 113. CRP is 16.5. Blood cultures are currently pending repeat. 03/25/2021 Patient is evaluated today, still presenting with crackles throughout all lung elam. Patient had abdominal pelvis CT completed yesterday that showed some airspace infiltrate and atelectasis in both lung bases with pleural thickening that is not significantly different last exam. Cardio megaly. Mild bilateral hydronephrosis with dilated urinary bladder. Hydronephrosis is probably secondary to the urinary retention. Urinary bladder is increased compared to old exam. Hydronephrosis is new compared to old exam. Patient also had a chest CT which revealed bilateral lower lobe pneumonia and atelectasis, pleural effusions, pleural fluid improved compared to old exam. There is new bilateral hydronephrosis. Patient was ultimately retaining urine and had a Duong catheter placed at noon today. Creatinine today is 2.07, sodium 135, calcium 6.6. Urinalysis was obtained which showed moderate blood, rare bacteria. Negative for UTI. Patient had a nephrology consult today who recommends continue gentle IV hydration and a urology consult. ROS Constitutional: Denied any fatigue denied any fever. Cardio vascular: denied any chest pain, palpitations Gastrointestinal denied any nausea vomiting Pulmonary: Denied any shortness of breath cough Neurologic denied any new focal deficits All inpatient medications were reviewed and appropriate changes in these medications as dictated in the interval history and assessment and plan. PHYSICAL EXAMINATION: GENERAL: The patient is alert and oriented x3, not in any acute distress. Well developed, well nourished. HEENT: Pupils are round and equally reacting to light. EOMI. No scleral icterus. No conjunctival pallor. Normocephalic, atraumatic. No pharyngeal erythema. No thyromegaly. CARDIOVASCULAR: S1 and S2 present. No murmurs, rubs, or gallops. Tachycardic irregularly irregular PULMONARY: Good air entry into bilateral lung elam bibasilar crackles patient is on 2 L of oxygen which he uses at home ABDOMEN: Soft, nontender, distended, normoactive bowel sounds. No palpable organomegaly. MUSCULOSKELETAL: No joint swelling or deformity. EXTREMITIES: No cyanosis, clubbing, does have pedal edema +3 NEUROLOGICAL: Gross neurological examination did not reveal any focal deficits. SKIN: No rashes. Assessment and plan -Sepsis and bacteremia with Enterococcus faecalis, repeat culture is still p ositive however there is noresistance this time. Continue on antibiotics -Leukocytosis, related to sepsis and bacteremia, improving -Congestive heart failure possible chronic diastolic dysfunction with acute exacerbation. -Moderate pulmonary hypertension -Acute renal failure: Related to acute tubular necrosis which is secondary to hypotension -Chronic kidney disease stage III possible hypertensive sclerosis -Anemia, normocytic, most likely secondary to chronic kidney disease -Bilateral hydronephrosis possibly due to urological obstruction, urology consult pending -Hyperlipidemia -History of hypertension Hypotension related to sepsis and bacteremia -Chronic Atrial fibrillation with RVR -History of dementia possibly vascular -Depression -Ruled out pulmonary embolism with a VQ scan which showed low probability for PE DVT prophylaxis: subcu heparin, eliquis O/H still Plan Patient was evaluated by nephrology who recommends starting patient on midodrine for pressures, and cortisol level. Urology consult has been placed. Cardiology recommendations include holding Cardizem, Lopressor for systolic blood pressure greater than 90, continue with amiodarone, continue digoxin 125 mg IV push daily for 3 days. Limited echo has been completed. We will repeat labs in the morning. Continue with indwelling catheter. Antibiotics changed to IV ampicillin. Objective - Vital Signs Vital signs: Vital Signs Temp 98.3 F 03/25/21 12:06 Pulse 79 03/25/21 12:06 Resp 24 03/25/21 12:06 BP 91/57 03/25/21 12:06 Pulse Ox 94 L 03/25/21 12:06 Intake & Output 03/24/21 03/25/21 03/25/21 18:59 06:59 18:59 Intake Total 2009 350 418 Output Total 3002 486 Balance [id number] -68 Weight 100 kg Intake: Intake, IV Titration 850 350 200 Amount Ampicillin-Sulbactam 3 gm 100 In Sodium Chloride 0.9% 100 ml @ 200 mls/hr IVPB Q12HR [facility] Rx#:[id number] Ampicillin-Sulbactam 3 gm 100 100 In Sodium Chloride 0.9% 100 ml @ 200 mls/hr IVPB Q8HR [facility] Rx#:[id number] Sodium Chloride 0.9% 1, 250 250 100 000 ml @ 50 mls/hr IV . Q20H [facility] Rx#:[id number] Sodium Chloride 0.9% 500 500 ml 500 ml @ 999 mls/hr IV .Q31M [facility] Rx#:[id number] Oral 1160 218 Output: Urine 1500 Straight 1500 Post Void Residual 1500 485 Stool 2 1 Other: Voiding Method External Catheter External Catheter Diaper # Voids 2 3 # Bowel Movements 1 - Labs CBC & Chem 7: 03/25/21 07:16 03/25/21 07:16 Labs: Abnormal Lab Results - Last 24 Hours (Table) 03/25/21 03/25/21 03/25/21 Range/Units 05:00 07:16 07:16 WBC 11.4 H (3.8-10.6) k/uL RBC 3.43 L (4.30-5.90) m/uL Hgb 10.0 L (13.0-17.5) gm/dL Hct 32.0 L (39.0-53.0) % RDW 17.0 H (11.5-15.5) % Plt Count 67 L (150-450) k/uL Neutrophils # 10.5 H (1.3-7.7) k/uL Lymphocytes # 0.4 L (1.0-4.8) k/uL Sodium 135 L (137-145) mmol/L BUN 52 H (9-20) mg/dL Creatinine 2.07 H (0.66-1.25) mg/dL Glucose 103 H (74-99) mg/dL Calcium 6.6 L (8.4-10.2) mg/dL Ionized Calcium Guille (4.5-5.3) mg/dL Urine Blood Moderate H (Negative) Urine RBC 26 H (0-5) /hpf Urine Bacteria Rare H (None) /hpf Urine Mucus Rare H (None) /hpf 03/25/21 Range/Units 10:28 WBC (3.8-10.6) k/uL RBC (4.30-5.90) m/uL Hgb (13.0-17.5) gm/dL Hct (39.0-53.0) % RDW (11.5-15.5) % Plt Count (150-450) k/uL Neutrophils # (1.3-7.7) k/uL Lymphocytes # (1.0-4.8) k/uL Sodium (137-145) mmol/L BUN (9-20) mg/dL Creatinine (0.66-1.25) mg/dL Glucose (74-99) mg/dL Calcium (8.4-10.2) mg/dL Ionized Calcium Guille 4.2 L (4.5-5.3) mg/dL Urine Blood (Negative) Urine RBC (0-5) /hpf Urine Bacteria (None) /hpf Urine Mucus (None) /hpf Microbiology - Last 24 Hours (Table) 03/24/21 07:36 Blood Culture Gram Stain - Preliminary Blood 03/23/21 08:20 Blood Culture - Preliminary Blood No Growth after 48 hours 03/24/21 07:36 Blood Culture - Final Blood 03/21/21 13:32 Blood Culture Gram Stain - Final Blood Blood Culture - Final Enterococcus faecalis 03/21/21 13:32 Blood Culture Gram Stain - Final Blood Blood Culture - Final Enterococcus faecalis 03/22/21 05:33 Blood Culture Gram Stain - Preliminary Blood Blood Culture - Preliminary Group D Enterococcus Assessment and Plan Time with Patient: Greater than 30
[2021-03-25] MEDS: AMPICILLIN 2,000 MG in SODIUM CHLORIDE 0.9% 100 ML IVPB SCH (21:31)
[2021-03-25] MEDS: HEPARIN SODIUM,PORCINE/PF 5,000 UNIT/0.5 ML SYRINGE SQ SCH (21:32)
[2021-03-25] MEDS: ATORVASTATIN 10 MG TAB PO SCH (21:32)
[2021-03-26] MEDS: SODIUM CHLORIDE 0.9% 1,000 ML IV SCH (04:53)
[2021-03-26] MEDS: LEVOTHYROXINE 100 MCG TAB PO SCH (05:33)
[2021-03-26] MEDS: LEVOTHYROXINE 75 MCG TAB PO SCH (05:33)
[2021-03-26] MEDS: MIDODRINE 5 MG TAB PO SCH ×3 (06:33→17:44)
[2021-03-26] MEDS: IPRATROPIUM-ALBUTEROL 3 ML NEB INHALATION SCH ×4 (08:01→20:21)
[2021-03-26] MEDS: FORMOTEROL FUMARATE 20 MCG/2 ML NEBU INHALATION SCH ×2 (08:01→20:20)
[2021-03-26 09:05] LABS: Albumin 2.2 g/dL (3.5-5.0); Calcium 6.5 mg/dL (8.4-10.2); Magnesium 2.1 mg/dL (1.6-2.3); Potassium 3.8 mmol/L (3.5-5.1); Total Bilirubin 0.9 mg/dL (0.2-1.3); Total Protein 5.8 g/dL (6.3-8.2)
[2021-03-26] MEDS ORDERED: FUROSEMIDE 10 MG/ML 2 ML VIAL IV ONE (09:14)
--- NOTE | 2021-03-26 09:20 | PN ---
PROGRESS NOTE DATE OF SERVICE: 03/25/2021 REASON FOR FOLLOWUP: Enterococcus faecalis bacteremia, concern for possible endovascular source. INTERVAL HISTORY: Patient is afebrile. The patient is breathing comfortably. Denies having any chest pain, shortness of breath. Occasional cough. No abdominal pain. Did have urinary retention requiring self catheterization. PHYSICAL EXAMINATION: Blood pressure is 93/55, pulse of 65, temperature 97.2. He is 96% on 3 L nasal cannula. General description is an elderly male lying in bed in no distress. Respiratory system: Unlabored breathing, clear to auscultation anteriorly. Heart S1, S2. Regular rate and rhythm. Abdomen soft, mildly distended. No guarding. No rigidity. LABS: Hemoglobin is 10 with white count 11.4, BUN of 52, creatinine is 2.07. Blood culture remains to be still positive. DIAGNOSTIC IMPRESSION AND PLAN: Patient with Enterococcus faecalis bacteremia. Concern for possible endovascular source. 2D echocardiogram shows slight thickening of the mitral valve. Request JAYDE. For now antibiotic will be adjusted to ampicillin and will monitor clinical course closely. MMODL / IJN: [id number] /
[2021-03-26] MEDS: AMPICILLIN 2,000 MG in SODIUM CHLORIDE 0.9% 100 ML IVPB SCH ×2 (10:24→20:44)
[2021-03-26] MEDS: HEPARIN SODIUM,PORCINE/PF 5,000 UNIT/0.5 ML SYRINGE SQ SCH ×3 (10:24→20:46)
[2021-03-26] MEDS: TAMSULOSIN 0.4 MG CAP.ER.24H PO SCH (10:24)
[2021-03-26] MEDS: METOPROLOL TARTRATE 25 MG TAB PO SCH ×2 (10:24→21:52)
[2021-03-26] MEDS: AMIODARONE 100 MG TAB PO SCH (10:25)
[2021-03-26] MEDS: DIGOXIN 250 MCG/ML 2 ML AMP IVP SCH (10:25)
[2021-03-26] MEDS: METOPROLOL TARTRATE 50 MG TAB PO SCH (11:01)
--- NOTE | 2021-03-26 11:03 | P.PN ---
Subjective Patient is seen in follow-up for acute kidney injury on chronic kidney disease. Renal function improving. Has a Duong catheter. Oral intake is fair. No vomiting or diarrhea. Vital signs are stable. General: The patient appeared well nourished and normally developed. HEENT: Head exam is unremarkable. LUNGS: Breath sounds decreased. HEART: Rate and Rhythm are regular. ABDOMEN: Soft, no distention. EXTREMITITES: 1+ edema. Objective - Vital Signs Vital signs: Vital Signs Temp 97.9 F 03/26/21 07:50 Pulse 72 03/26/21 07:50 Resp 20 03/26/21 07:50 BP 103/67 03/26/21 07:50 Pulse Ox 92 L 03/26/21 07:50 Intake & Output 03/25/21 03/26/21 03/26/21 18:59 06:59 18:59 Intake Total 536 1024 240 Output Total 1186 400 Balance -650 624 240 Weight 99.5 kg 99.5 kg Intake: Intake, IV Titration 200 550 Amount Ampicillin-Sulbactam 3 gm 100 In Sodium Chloride 0.9% 100 ml @ 200 mls/hr IVPB Q12HR [facility] Rx#:[id number] Ampicillin-Sulbactam 3 gm 100 In Sodium Chloride 0.9% 100 ml @ 200 mls/hr IVPB Q8HR [facility] Rx#:[id number] Sodium Chloride 0.9% 1, 100 450 000 ml @ 50 mls/hr IV . Q20H [facility] Rx#:[id number] Oral 336 474 240 Output: Urine 700 400 Post Void Residual 485 Stool 1 Other: Voiding Method Self-Catheterization Indwelling Catheter # Bowel Movements 1 - Labs CBC & Chem 7: 03/25/21 07:16 03/26/21 07:56 Labs: Abnormal Lab Results - Last 24 Hours (Table) 03/24/21 03/26/21 Range/Units 07:36 07:56 Sodium 132 L (137-145) mmol/L Carbon Dioxide 18 L (22-30) mmol/L BUN 40 H (9-20) mg/dL Creatinine 1.76 H (0.66-1.25) mg/dL Glucose 123 H (74-99) mg/dL Calcium 6.5 L (8.4-10.2) mg/dL Total Protein 5.8 L (6.3-8.2) g/dL Albumin 2.2 L (3.5-5.0) g/dL Procalcitonin 1.03 H (0.02-0.09) ng/mL Microbiology - Last 24 Hours (Table) 03/22/21 05:33 Blood Culture Gram Stain - Final Blood Blood Culture - Preliminary Enterococcus faecalis 03/24/21 07:36 Blood Culture Gram Stain - Preliminary Blood Blood Culture - Preliminary Enterococcus faecalis 03/23/21 08:20 Blood Culture - Preliminary Blood No Growth after 48 hours Assessment and Plan Plan: Assessment: 1. Acute kidney injury secondary to ATN secondary to hypotension, diaphoresis an infection. Creatinine peaked at 2.3 for this admission and is 1.76 today. UA benign. Also has bilateral hydronephrosis concerning for obstructive uropathy. 2. Chronic kidney disease stage IIIa with baseline creatinine in the range of 1.1-1.3 secondary to nephrosclerosis. 3. Bilateral hydronephrosis. Urology following. On Flomax. Has a Duong catheter. 4. Enterococcus bacteremia and pneumonia on antibiotics. Infectious disease following. 5. Acute on chronic diastolic CHF with moderate pulmonary hypertension. 6. Hypocalcemia secondary to acute kidney injury. Corrected calcium 7.8. Ionized calcium slightly low. 7. Lower extremity edema. 8. Metabolic acidosis secondary to acute kidney injury and IV fluids. Plan: Hep-Lock IV fluids. Lasix 20 mg IV once today. Encourage oral intake. Replace calcium. Cortisol level normal. Maintain midodrine. Continue to monitor renal function and urine output.
[2021-03-26] MEDS ORDERED: CALCIUM GLUCONATE 1 GM in SODIUM CHLORIDE 0.9% 100 ML IVPB ONE (11:30)
--- NOTE | 2021-03-26 12:23 | P.PN ---
Subjective History of present illness: This is a 76-year-old male patient with past medical history of mitral valve repair, aortic valve replacement 2017, chronic atrial fibrillation, hypertension, hyperlipidemia, paroxysmal atrial fibrillation, dementia and sternal infection s/p open heart surgery that required surgical intervention. Patient is unable to provide information and information is obtained from the patient's at bedside. Patient apparently developed bleeding from the scrotal area which his states was probably from him scratching. Due to him being on eliquis, there was significant bleeding and patient was taken to the emergency center for further evaluation. He was found to be quite hypotensive at 79/64 heart rate was in the 50s. He was given IV fluid bolus of 500 with some improvement of his blood pressure. EKG was atrial fibrillation at rate of 59 bpm. WBC 13.4, hemoglobin 11.5, platelet count 76. Sodium 134, potassium 3.8, BUN 66 and creatinine 2.29. D-dimer 4.05. Troponin 0.077. ProBNP 11,400. Coronavirus PCR not detected. Urinalysis positive for blood. Chest x-ray reveals mild to moderate heart failure. 03/26/2021 Pt seen and examined sitting up in recliner chair in no acute distress. He denies chest pain, shortness of breath, dizziness or palpitations. Blood pressure 106/66 heart rate 67 afebrile and maintaining oxygen saturation on room air. He continues to be in atrial fibrillation heart rates in the 70s to 90s. Laboratory data reviewed, sodium 132, potassium 3.8, creatinine 1.76. Limited echocardiogram obtained reveals preserved LV systolic function with ejection fraction 55-60% with a normally functioning bioprosthetic aortic valve with a mean gradient of 10 mmHg, mild MR with a mean gradient of 3 mmHg and mild TR. Infectious disease is following regarding ongoing bacteremia. Physical examination: Gen: This is a a 76-year-old male. He is resting in bed and appears to be comfortable. HEENT: Head is atraumatic, normocephalic. Pupils equal, round. Sclerae is anicteric. NECK: Supple. No JVD. No lymphadenopathy. No thyromegaly. LUNGS: Scattered rhonchi, no wheezes or rales. HEART: Irregular rate and rhythm. Systolic ejection murmur. EXTREMITIES: 1+ bilateral lower extremity pitting edema. No calf tenderness. Assessment: Scrotal bleeding, stable Paroxysmal atrial fibrillation on eliquis at home, currently on hold for scrotal wound bleeding. Episodes of RVR. Bactermia, ongoing Suspect pneumonia Status post mitral valve repair and aortic valve replacement History of sternal infection s/p open heart surgery Preliminary blood culture positive for Enterococcus faecalis Leukocytosis Thrombocytopenia Acute on chronic kidney disease Hypertension Hyperlipidemia Dementia Plan: Decrease Lopressor to 25 mg twice a day. IV lasix per nephrology. ID is following and preliminarily considering urinary source of infection. No plans for JAYDE at this time. Further recommendations to follow based upon clinical course. Nurse practitioner note has been reviewed, I agree with documented findings and plan of care. Patient was seen and examined. Objective - Vital Signs Vital signs: Vital Signs Temp 97.7 F 03/26/21 11:54 Pulse 67 03/26/21 11:54 Resp 19 03/26/21 11:54 BP 106/66 03/26/21 11:54 Pulse Ox 93 L 03/26/21 11:54 Intake & Output 03/25/21 03/26/21 03/26/21 18:59 06:59 18:59 Intake Total 536 1024 240 Output Total 1186 400 Balance -650 624 240 Weight 99.5 kg 99.5 kg Intake: Intake, IV Titration 200 550 Amount Ampicillin-Sulbactam 3 gm 100 In Sodium Chloride 0.9% 100 ml @ 200 mls/hr IVPB Q12HR [facility] Rx#:[id number] Ampicillin-Sulbactam 3 gm 100 In Sodium Chloride 0.9% 100 ml @ 200 mls/hr IVPB Q8HR [facility] Rx#:[id number] Sodium Chloride 0.9% 1, 100 450 000 ml @ 50 mls/hr IV . Q20H [facility] Rx#:[id number] Oral 336 474 240 Output: Urine 700 400 Post Void Residual 485 Stool 1 Other: Voiding Method Self-Catheterization Indwelling Catheter # Bowel Movements 1 - Labs CBC & Chem 7: 03/25/21 07:16 03/26/21 07:56 Labs: Abnormal Lab Results - Last 24 Hours (Table) 03/24/21 03/26/21 Range/Units 07:36 07:56 Sodium 132 L (137-145) mmol/L Carbon Dioxide 18 L (22-30) mmol/L BUN 40 H (9-20) mg/dL Creatinine 1.76 H (0.66-1.25) mg/dL Glucose 123 H (74-99) mg/dL Calcium 6.5 L (8.4-10.2) mg/dL Total Protein 5.8 L (6.3-8.2) g/dL Albumin 2.2 L (3.5-5.0) g/dL Procalcitonin 1.03 H (0.02-0.09) ng/mL Microbiology - Last 24 Hours (Table) 03/23/21 08:20 Blood Culture - Preliminary Blood No Growth after 72 hours 03/22/21 05:33 Blood Culture Gram Stain - Final Blood Blood Culture - Preliminary Enterococcus faecalis 03/24/21 07:36 Blood Culture Gram Stain - Preliminary Blood Blood Culture - Preliminary Enterococcus faecalis
--- NOTE | 2021-03-26 16:01 | P.PN ---
Subjective Progress Note Date: 03/26/21 68-year-old male admitted because of bleeding from the scrotum patient is found to be bacteremic later possible source is probably skin breakdown at the scrotal area. Patient enterococcal bacteremia bacteremia and patient is on Unasyn for that. Patient does have history of atrial fibrillation. Patient probably has a chronic diastolic dysfunction patient appears to be volume overloaded with some pulmonary edema bibasilar crackles on lung exam patient will be switched IV Lasix IV fluids will be discontinued. Patient blood pressure is low normal because of which I will hold off on lisinopril. Patient had normal ejection fraction the past patient had a VQ scan today which showed normal ejection fr action. Patient has elevated creatinine of 1.84 patient was in acute renal failure and patient which improved. 03/24/2021 Patient is resting comfortably in the bed he denies any current pain. Patient does have some 3+ pitting edema, lungs are crackles in the bases and throughout the posterior lung elam. Patient repeat chest x-ray today that we demonstrated scattered infiltrates, x-rays reviewed and does appear to be fluid overload status. His BNP on admission was 11,400. Patient's hypotensive this morning at 79/50. Prior to that it was 85/56. Patient is 95% on 3 L nasal cannula. Cardiac meds are held this morning, pending reconsultation. Other vitals include a temp of 98.1, heart rate 68 A. fib. Labs today reveal a white count of 17.5, hemoglobin 11.2. Sodium is 137, potassium 3.7, BUN 50, creatinine 2.34. Patient's glucose is 113. CRP is 16.5. Blood cultures are currently pending repeat. 03/25/2021 Patient is evaluated today, still presenting with crackles throughout all lung elam. Patient had abdominal pelvis CT completed yesterday that showed some airspace infiltrate and atelectasis in both lung bases with pleural thickening that is not significantly different last exam. Cardio megaly. Mild bilateral hydronephrosis with dilated urinary bladder. Hydronephrosis is probably secondary to the urinary retention. Urinary bladder is increased compared to old exam. Hydronephrosis is new compared to old exam. Patient also had a chest CT which revealed bilateral lower lobe pneumonia and atelectasis, pleural effusions, pleural fluid improved compared to old exam. There is new bilateral hydronephrosis. Patient was ultimately retaining urine and had a Duong catheter placed at noon today. Creatinine today is 2.07, sodium 135, calcium 6.6. Urinalysis was obtained which showed moderate blood, rare bacteria. Negative for UTI. Patient had a nephrology consult today who recommends continue gentle IV hydration and a urology consult. 03/26/2021 Patient is sitting up at the chair at the time of my assessment. He states overall he is feeling better. He has an indwelling catheter that is dark fabian in color. His labs are reviewed include a WBC of 11.4, hemoglobin of 10, platelets of 67, sodium 132, BUN 40, creatinine 1.76. Albumin is low at 2.2. His pro-calcitonin was elevated at 1.03. Vital signs include temperature 97.7, heart rate 76, blood pressure 106/66, 93% on 2 L nasal cannula. Limited echo reveals a EF of 55-60%. Current changes from cardiology include discontinued and IV fluids, one-time dose of IV Lasix, decreasing Lopressor. A.m. cortisol level 21. was updated at the bedside yesterday who states that all of his providers are down in [employer]. ROS Constitutional: Denied any fatigue denied any fever. Cardio vascular: denied any chest pain, palpitations, reports peripheral edema Gastrointestinal denied any nausea vomiting Pulmonary: Denies cough, pressures of breath with exertion Neurologic denied any new focal deficits All inpatient medications were reviewed and appropriate changes in these medications as dictated in the interval history and assessment and plan. PHYSICAL EXAMINATION: GENERAL: The patient is alert and oriented x3, not in any acute distress. Well developed, well nourished. HEENT: Pupils are round and equally reacting to light. EOMI. No scleral icterus. No conjunctival pallor. Normocephalic, atraumatic. No pharyngeal erythema. No thyromegaly. CARDIOVASCULAR: S1 and S2 present. No murmurs, rubs, or gallops. Tachycardic irregularly irregular PULMONARY: Good air entry into bilateral lung elam bibasilar crackles patient is on 2 L of oxygen which he uses at home ABDOMEN: Soft, nontender, distended, normoactive bowel sounds. No palpable organomegaly. MUSCULOSKELETAL: No joint swelling or deformity. EXTREMITIES: No cyanosis, clubbing, does have pedal edema +3 NEUROLOGICAL: Gross neurological examination did not reveal any focal deficits. SKIN: No rashes. Assessment and plan -Sepsis and bacteremia with Enterococcus faecalis, repeat culture is still positive however there is noresistance this time. Continue on antibiotics -Leukocytosis, related to sepsis and bacteremia, improving -Congestive heart failure possible chronic diastolic dysfunction with acute ex acerbation, EF is 55-60% -Moderate pulmonary hypertension -Acute renal failure: Related to acute tubular necrosis which is secondary to hypotension -Chronic kidney disease stage III possible hypertensive sclerosis -Anemia, normocytic, most likely secondary to chronic kidney disease -Bilateral hydronephrosis possibly due to urological obstruction, urology consult pending -Hyponatremia most likely hypervolemic, IV Lasix 1 given today. -Hyperlipidemia -History of hypertension Hypotension related to sepsis and bacteremia -Chronic Atrial fibrillation with RVR, rate is currently controlled -History of dementia possibly vascular -Depression -Ruled out pulmonary embolism with a VQ scan which showed low probability for PE DVT prophylaxis: subcu heparin, eliquis O/H still DO NOT RESUSCITATE Plan Continue on IV ampicillin. Fluids have been discontinued today. Repeat labs in the morning. Midodrine on for hypotension which is improving. Patient overall prognosis is poor, appreciate nephrology, cardiology and ID consultations. Pending urology consultation for urinary retention and hydronephrosis. Continue with indwelling catheter and strict intake and output. Plan is for subacute [facility] ab to [facility] once medically cleared. Objective - Vital Signs Vital signs: Vital Signs Temp 97.7 F 03/26/21 11:54 Pulse 67 03/26/21 11:54 Resp 19 03/26/21 11:54 BP 106/66 03/26/21 11:54 Pulse Ox 93 L 03/26/21 11:54 Intake & Output 03/25/21 03/26/21 03/26/21 18:59 06:59 18:59 Intake Total 536 1024 240 Output Total 1186 400 Balance -650 624 240 Weight 99.5 kg 99.5 kg Intake: Intake, IV Titration 200 550 Amount Ampicillin-Sulbactam 3 gm 100 In Sodium Chloride 0.9% 100 ml @ 200 mls/hr IVPB Q12HR [facility] Rx#:[id number] Ampicillin-Sulbactam 3 gm 100 In Sodium Chloride 0.9% 100 ml @ 200 mls/hr IVPB Q8HR [facility] Rx#:[id number] Sodium Chloride 0.9% 1, 100 450 000 ml @ 50 mls/hr IV . [facility] Rx#:[id number] Oral 336 474 240 Output: Urine 700 400 Post Void Residual 485 Stool 1 Other: Voiding Method Self-Catheterization Indwelling Catheter # Bowel Movements 1 - Labs CBC & Chem 7: 03/25/21 07:16 03/26/21 07:56 Labs: Abnormal Lab Results - Last 24 Hours (Table) 03/24/21 03/26/21 Range/Units 07:36 07:56 Sodium 132 L (137-145) mmol/L Carbon Dioxide 18 L (22-30) mmol/L BUN 40 H (9-20) mg/dL Creatinine 1.76 H (0.66-1.25) mg/dL Glucose 123 H (74-99) mg/dL Calcium 6.5 L (8.4-10.2) mg/dL Total Protein 5.8 L (6.3-8.2) g/dL Albumin 2.2 L (3.5-5.0) g/dL Procalcitonin 1.03 H (0.02-0.09) ng/mL Microbiology - Last 24 Hours (Table) 03/23/21 08:20 Blood Culture - Preliminary Blood No Growth after 72 hours 03/22/21 05:33 Blood Culture Gram Stain - Final Blood Blood Culture - Preliminary Enterococcus faecalis 03/24/21 07:36 Blood Culture Gram Stain - Preliminary Blood Blood Culture - Preliminary Enterococcus faecalis Assessment and Plan Time with Patient: Greater than 30
--- NOTE | 2021-03-26 17:26 | P.GSCN ---
History of Present Illness Consult date: 03/26/21 Reason for Consult: Urinary retention, bilateral hydronephrosis History of present illness: This is 76-year-old male admitted to the hospital with acute kidney injury and dehydration. He underwent a CT abdomen and pelvis on presentation which showed evidence of bilateral mild hydronephrosis, with a distended bladder. He was initially straight cathed for 1.5 L urine, subsequently a Duong catheter was placed with return 500 mL. Patient has history of dementia, but denies any voiding issues. No gross hematuria or dysuria, no previous history of urinary retention. Of note he has history of bladder rupture back in 2019, the repair was done by Dr. Lim , he follows up with Dr. Lim as an outpatient. Review of Systems - Constitutional Denies chills, Denies fever - Cardiovascular Denies chest pain, Denies shortness of breath - Respiratory Denies cough, Denies 7 - Gastrointestinal Reports as per HPI - Genitourinary Reports urinary retention, Denies dysuria, Denies hematuria - Neurological Denies headaches, Denies syncope Past Medical History Past Medical History: Atrial Fibrillation, Cancer, Heart Failure, Dementia, Deep Vein Thrombosis (DVT), Hyperlipidemia, Hypertension, Osteoarthritis (OA), Pulmon oscar Embolus (PE), Thyroid Disorder, Vascular Disorder Additional Past Medical History / Comment(s): THYROID CANCER with surgery/radio active tablets, bilateral lower leg cellulitis 2015, varicose veins, past DVTs and PEs, short term memory problems, episodes of hypotension, hiatal hernia, gastritis. Insomnia. Depression. Atrial fibrillation. History of Any Multi-Drug Resistant Organisms: None Reported Past Surgical History: Cardiac Valve Replacement, Heart Catheterization, Joint Replacement Additional Past Surgical History / Comment(s): Thyroidectomy, total left knee replacement, JAYDE/CVN, 09/29/16 aortic valve replacement with bovine valve and mitral valve repair, mediastinal lymph node biopsy, sternal chest wound debridement/ wound vac/sternotomy and muscle straps, COLONOSCOPY, EGD, bilateral cataract removals and L eye was injured requirin surgery to remove blood. Past Anesthesia/Blood Transfusion Reactions: No Reported Reaction Additional Past Anesthesia/Blood Transfusion Reaction / Comm: Pt has received blood in past without reaction. Smoking Status: Former smoker - Past Family History Father Family Medical History: Coronary Artery Disease (CAD) Additional Family Medical History / Comment(s): Father at the age pf 76yrs from heart problems. Mother Family Medical History: Vascular Disorder Additional Family Medical History / Comment(s): Mother had varicosities. She lived to be 92 yrs old. Brother(s) Family Medical History: Cancer Additional Family Medical History / Comment(s): LIVER CA. BLOOD CLOT. Medications and Allergies Home Medications Medication Instructions Recorded Confirmed Type Apixaban [Eliquis] 5 mg PO BID 05/30/19 03/21/21 History Amiodarone [Cordarone] 100 mg PO DAILY 12/01/20 03/21/21 History Atorvastatin [Lipitor] 10 mg PO HS 12/01/20 03/21/21 History Diltiazem HCl [Cartia Xt] 120 mg PO DAILY 12/01/20 03/21/21 History Furosemide [Lasix] 40 mg PO BID 12/01/20 03/21/21 History Levothyroxine Sodium [Synthroid] 175 mcg PO DAILY 12/01/20 03/21/21 History Metoprolol Tartrate [Lopressor] 100 mg PO BID 12/01/20 03/21/21 History lisinopriL [Zestril] 2.5 mg PO DAILY 12/01/20 03/21/21 History Ipratropium-Albuterol Nebulize 3 ml INHALATION RT-QID PRN #300 ml 12/12/20 03/21/21 Rx [Duoneb 0.5 mg-3 mg/3 ml Soln] Umeclidinium Brm/Vilanterol Tr 1 puff INHALATION RT-BID #1 device 12/12/20 03/21/21 Rx [Anoro Ellipta 62.5-25 Mcg INH] Allergies Allergy/AdvReac Type Severity Reaction Status Date / Time No Known Allergies Allergy Verified 03/21/21 16:10 Surgical - Exam Vital Signs Temp Pulse Resp 97.7 F 51 L 20 03/21/21 12:22 03/21/21 12:22 03/21/21 12:22 - General well developed, well nourished, no distress, no pain - Eyes PERRL, normal ocular movement - ENT normal nares, normal mucosa - Respiratory normal expansion, normal respiratory effort - Abdomen Abdomen: soft, non tender - Genitourinary Duong in place draining clear yellow urine Results - Labs 03/25/21 07:16 03/26/21 07:56 Abnormal Lab Results - Last 24 Hours (Table) 03/24/21 03/26/21 Range/Units 07:36 07:56 Sodium 132 L (137-145) mmol/L Carbon Dioxide 18 L (22-30) mmol/L BUN 40 H (9-20) mg/dL Creatinine 1.76 H (0.66-1.25) mg/dL Glucose 123 H (74-99) mg/dL Calcium 6.5 L (8.4-10.2) mg/dL Total Protein 5.8 L (6.3-8.2) g/dL Albumin 2.2 L (3.5-5.0) g/dL Procalcitonin 1.03 H (0.02-0.09) ng/mL Microbiology - Last 24 Hours (Table) 03/23/21 08:20 Blood Culture - Preliminary Blood No Growth after 72 hours 03/22/21 05:33 Blood Culture Gram Stain - Final Blood Blood Culture - Preliminary Enterococcus faecalis Diabetes panel 03/26/21 Range/Units 07:56 Sodium 132 L (137-145) mmol/L Potassium 3.8 (3.5-5.1) mmol/L Chloride 105 (98-107) mmol/L Carbon Dioxide 18 L (22-30) mmol/L BUN 40 H (9-20) mg/dL Creatinine 1.76 H (0.66-1.25) mg/dL Glucose 123 H (74-99) mg/dL Calcium 6.5 L (8.4-10.2) mg/dL AST 23 (17-59) U/L ALT 13 (4-49) U/L Alkaline Phosphatase 74 (38-126) U/L Total Protein 5.8 L (6.3-8.2) g/dL Albumin 2.2 L (3.5-5.0) g/dL Calcium panel 03/26/21 Range/Units 07:56 Calcium 6.5 L (8.4-10.2) mg/dL Albumin 2.2 L (3.5-5.0) g/dL Pituitary panel 03/26/21 Range/Units 07:56 Sodium 132 L (137-145) mmol/L Potassium 3.8 (3.5-5.1) mmol/L Chloride 105 (98-107) mmol/L Carbon Dioxide 18 L (22-30) mmol/L BUN 40 H (9-20) mg/dL Creatinine 1.76 H (0.66-1.25) mg/dL Glucose 123 H (74-99) mg/dL Calcium 6.5 L (8.4-10.2) mg/dL Adrenal panel 03/26/21 Range/Units 07:56 Sodium 132 L (137-145) mmol/L Potassium 3.8 (3.5-5.1) mmol/L Chloride 105 (98-107) mmol/L Carbon Dioxide 18 L (22-30) mmol/L BUN 40 H (9-20) mg/dL Creatinine 1.76 H (0.66-1.25) mg/dL Glucose 123 H (74-99) mg/dL Calcium 6.5 L (8.4-10.2) mg/dL Total Bilirubin 0.9 (0.2-1.3) mg/dL AST 23 (17-59) U/L ALT 13 (4-49) U/L Alkaline Phosphatase 74 (38-126) U/L Total Protein 5.8 L (6.3-8.2) g/dL Albumin 2.2 L (3.5-5.0) g/dL Assessment and Plan Assessment: 76-year-old male admitted with acute kidney injury and dehydration. Urology is consulted for urinary retention, bilateral hydronephrosis. I reviewed his CT the ureter is dilated down to the bladder. His bilateral hydronephrosis most likely secondary to his urinary retention. Of note he had 1.5 L of urine in his bladder. -Keep Duong catheter for 1-2 weeks, and follow-up as an outpatient with Dr. Lim for trial of void -We'll start Flomax 0.4 mg
[2021-03-26] MEDS: ATORVASTATIN 10 MG TAB PO SCH (20:43)
--- NOTE | 2021-03-27 00:22 | PN ---
PROGRESS NOTE DATE OF SERVICE: 03/26/2021. REASON FOR FOLLOW UP: Enterococcus faecalis bacteremia. INTERVAL HISTORY: Patient is afebrile. The patient is breathing slightly comfortably. Denies having any chest pain, shortness of breath. Occasional cough. No abdominal pain or diarrhea. PHYSICAL EXAMINATION: Blood pressure 94/57, pulse of 72, temperature is 98.1. He is 97% on 2 L nasal cannula. General description is an elderly male lying in bed in no distress. Respiratory system: Unlabored breathing, clear to auscultation anteriorly. Heart S1, S2. Regular rate and rhythm. Abdomen soft, no tenderness. LABS: BUN of 40, creatinine is 1.76. Blood cultures 03/25/2021 still positive. DIAGNOSTIC IMPRESSION AND PLAN: Patient with Enterococcus faecalis bacteremia with concern for possible endovascular source. The patient may benefit from JAYDE. For now, continue with Ampicillin daily. document clearance of bacteremia and continue supportive care. at the bedside. Questions were answered. MMODL / IJN: [id number] /
[2021-03-27] MEDS: LEVOTHYROXINE 75 MCG TAB PO SCH (05:41)
[2021-03-27] MEDS: LEVOTHYROXINE 100 MCG TAB PO SCH (05:41)
[2021-03-27] MEDS: MIDODRINE 5 MG TAB PO SCH ×3 (06:50→16:14)
[2021-03-27] MEDS: IPRATROPIUM-ALBUTEROL 3 ML NEB INHALATION SCH ×4 (08:15→20:56)
[2021-03-27] MEDS: FORMOTEROL FUMARATE 20 MCG/2 ML NEBU INHALATION SCH ×2 (08:15→20:56)
[2021-03-27] MEDS: HEPARIN SODIUM,PORCINE/PF 5,000 UNIT/0.5 ML SYRINGE SQ SCH (08:29)
[2021-03-27 08:34] LABS: Anisocytosis Slight; Basophils % (A) 0 %; Eosinophils # (A) 0.1 k/uL (0-0.7); Eosinophils % (A) 1 %; HCT 33.3 % (39.0-53.0); HGB 10.3 gm/dL (13.0-17.5); Hypochromasia Slight; Lymphocytes # (A) 0.4 k/uL (1.0-4.8); Lymphocytes % (A) 5 %; MCH 29.1 pg (25.0-35.0); MCV 94.1 fL (80.0-100.0); Mean Platelet Volume 9.1; Monocytes # (A) 0.2 k/uL (0-1.0); Monocytes % (A) 2 %; Neutrophils # (A) 8.6 k/uL (1.3-7.7); Neutrophils % (A) 91 %; RBC 3.54 m/uL (4.30-5.90); RDW 16.9 % (11.5-15.5); WBC 9.5 k/uL (3.8-10.6)
[2021-03-27 08:37] LABS: Platelet Count 92 k/uL (150-450)
[2021-03-27 08:50] LABS: Calcium 7.1 mg/dL (8.4-10.2); Potassium 4.2 mmol/L (3.5-5.1)
[2021-03-27] MEDS: AMPICILLIN 2,000 MG in SODIUM CHLORIDE 0.9% 100 ML IVPB SCH ×2 (09:03→20:22)
[2021-03-27] MEDS: TAMSULOSIN 0.4 MG CAP.ER.24H PO SCH (09:04)
[2021-03-27] MEDS: METOPROLOL TARTRATE 25 MG TAB PO SCH ×2 (09:04→20:22)
[2021-03-27] MEDS: AMIODARONE 100 MG TAB PO SCH (09:04)
[2021-03-27] MEDS: DIGOXIN 250 MCG/ML 2 ML AMP IVP SCH (09:05)
--- NOTE | 2021-03-27 11:41 | P.PN ---
Subjective Patient is seen in follow-up for acute kidney injury on chronic kidney disease. Renal function improving. Has a Duong catheter. Oral intake is fair. No vomiting or diarrhea. Vital signs are stable. General: The patient appeared well nourished and normally developed. HEENT: Head exam is unremarkable. LUNGS: Breath sounds decreased. HEART: Rate and Rhythm are regular. ABDOMEN: Soft, no distention. EXTREMITITES: 1+ edema. Objective - Vital Signs Vital signs: Vital Signs Temp 98.4 F 03/27/21 08:00 Pulse 64 03/27/21 11:37 Resp 20 03/27/21 08:00 BP 100/57 03/27/21 08:00 Pulse Ox 92 L 03/27/21 08:00 Intake & Output 03/26/21 03/27/21 03/27/21 18:59 06:59 18:59 Intake Total 568 210 Output Total 1502 800 1 Balance -934 -800 209 Weight 99.5 kg 99 kg Intake: Oral 568 210 Output: Urine 1500 800 Stool 2 1 Other: Voiding Method Indwelling Catheter Indwelling Catheter Indwelling Catheter - Labs CBC & Chem 7: 03/27/21 08:06 03/27/21 08:06 Labs: Abnormal Lab Results - Last 24 Hours (Table) 03/27/21 03/27/21 Range/Units 08:06 08:06 RBC 3.54 L (4.30-5.90) m/uL Hgb 10.3 L (13.0-17.5) gm/dL Hct 33.3 L (39.0-53.0) % RDW 16.9 H (11.5-15.5) % Plt Count 92 L (150-450) k/uL Neutrophils # 8.6 H (1.3-7.7) k/uL Lymphocytes # 0.4 L (1.0-4.8) k/uL Sodium 133 L (137-145) mmol/L BUN 33 H (9-20) mg/dL Creatinine 1.56 H (0.66-1.25) mg/dL Glucose 120 H (74-99) mg/dL Calcium 7.1 L (8.4-10.2) mg/dL Microbiology - Last 24 Hours (Table) 03/23/21 08:20 Blood Culture - Preliminary Blood No Growth after 96 hours 03/26/21 07:56 Blood Culture - Final Blood 03/22/21 05:33 Blood Culture Gram Stain - Final Blood Blood Culture - Final Enterococcus faecalis 03/24/21 07:36 Blood Culture Gram Stain - Preliminary Blood Blood Culture - Preliminary Enterococcus faecalis Assessment and Plan Plan: Assessment: 1. Acute kidney injury secondary to ATN secondary to hypotension, diaphoresis an infection. Creatinine peaked at 2.3 for this admission and is 1.56 today. UA benign. Also has bilateral hydronephrosis concerning for obstructive uropathy. 2. Chronic kidney disease stage IIIa with baseline creatinine in the range of 1.1-1.3 secondary to nephrosclerosis. 3. Bilateral hydronephrosis. Urology following. On Flomax. Has a Duong catheter. 4. Enterococcus bacteremia and pneumonia on antibiotics. Infectious disease following. 5. Acute on chronic diastolic CHF with moderate pulmonary hypertension. 6. Hypocalcemia secondary to acute kidney injury. Corrected calcium 7.8. Ionized calcium slightly low. Replaced. Better. 7. Lower extremity edema. Improving with diuresis. 8. Metabolic acidosis secondary to acute kidney injury and IV fluids. Plan: Maintain oral Lasix. Encourage oral intake. Cortisol level normal. Increase dose of midodrine. Continue to monitor renal function and urine output.
--- NOTE | 2021-03-27 13:41 | PN ---
PROGRESS NOTE Mr. Stevenson is in atrial fibrillation. He is clinically doing a lot better. His cortisol levels are good. He will not require hydrocortisone but is doing well with midodrine. Blood pressure is also good. Vitals are stable. JVD is evident. S1, S2 is audible. Ejection systolic murmur is audible. Lungs reveal diminished air entry. He has dehiscence of the chest wall and this is also stable. From a cardiac standpoint, no further intervention. Patient can be discharged whenever it is okay with PCP. We can resume Eliquis at a lower dose of 2.5 mg b.i.d. MMODL / IJN: [id number] /
[2021-03-27] MEDS: FUROSEMIDE 20 MG TAB PO SCH (15:13)
--- NOTE | 2021-03-27 16:46 | PN ---
PROGRESS NOTE DATE OF SERVICE: 03/27/2021 REASON FOR FOLLOWUP: Enterococcus faecalis bacteremia, possible endovascular source. INTERVAL HISTORY: The patient is afebrile. The patient is currently breathing comfortably. The patient denies having any chest pain or cough. No abdominal pain. No diarrhea. PHYSICAL EXAMINATION: Blood pressure 107/66, pulse of 79, temperature 98.1. He is 98% on 3 L nasal cannula. General description is an elderly male lying in bed in no distress. Respiratory system: Unlabored breathing, clear to auscultation anteriorly. Heart S1, S2. Regular rate and rhythm. Abdomen soft, no tenderness. LABS: Blood cultures from the thirtieth still coming back positive. DIAGNOSTIC IMPRESSION AND PLAN: This patient with Enterococcus faecalis bacteremia. Concern for possible endovascular source. Patient may benefit from a JAYDE. He is on Ampicillin bacteremia in this patient with borderline kidney function high risk of we will add Rocephin for synergistic effect and monitor clinical course closely. Continue supportive care. MMODL / IJN: [id number] /
[2021-03-27] MEDS: APIXABAN 2.5 MG TABLET PO SCH (20:22)
[2021-03-27] MEDS: ATORVASTATIN 10 MG TAB PO SCH (20:22)
[2021-03-28] MEDS: MIDODRINE 5 MG TAB PO SCH ×3 (06:13→17:07)
[2021-03-28] MEDS: LEVOTHYROXINE 100 MCG TAB PO SCH (06:13)
[2021-03-28] MEDS: LEVOTHYROXINE 75 MCG TAB PO SCH (06:13)
[2021-03-28] MEDS ORDERED: FUROSEMIDE 10 MG/ML 2 ML VIAL IV ONE (08:33)
[2021-03-28] MEDS: METOPROLOL TARTRATE 25 MG TAB PO SCH ×2 (08:34→20:37)
[2021-03-28] MEDS: FUROSEMIDE 20 MG TAB PO SCH ×2 (08:34→17:08)
[2021-03-28] MEDS: AMPICILLIN 2,000 MG in SODIUM CHLORIDE 0.9% 100 ML IVPB SCH ×2 (08:34→20:37)
[2021-03-28] MEDS: AMIODARONE 100 MG TAB PO SCH (08:34)
[2021-03-28] MEDS: TAMSULOSIN 0.4 MG CAP.ER.24H PO SCH (08:35)
[2021-03-28] MEDS: APIXABAN 2.5 MG TABLET PO SCH ×2 (08:35→20:37)
[2021-03-28] MEDS: IPRATROPIUM-ALBUTEROL 3 ML NEB INHALATION SCH ×4 (08:40→20:08)
[2021-03-28] MEDS: FORMOTEROL FUMARATE 20 MCG/2 ML NEBU INHALATION SCH ×4 (08:40→20:08)
--- NOTE | 2021-03-28 08:56 | P.PN ---
Subjective Progress Note Date: 03/27/21 68-year-old male admitted because of bleeding from the scrotum patient is found to be bacteremic later possible source is probably skin breakdown at the scrotal area. Patient enterococcal bacteremia bacteremia and patient is on Unasyn for that. Patient does have history of atrial fibrillation. Patient probably has a chronic diastolic dysfunction patient appears to be volume overloaded with some pulmonary edema bibasilar crackles on lung exam patient will be switched IV Lasix IV fluids will be discontinued. Patient blood pressure is low normal because of which I will hold off on lisinopril. Patient had normal ejection fraction the past patient had a VQ scan today which showed normal ejection fr action. 03/27/2021 Patient can use to have persistent bacteremia although kidney function continued to improve blood pressure remains on the lower side. Patient has enterococcus patient does have a murmur in the attic area as well will discuss with the infectious disease regarding the need for transesophageal echocardiogram to evaluate for hepatitis considering persistent bacteremia. Leukocytosis is improving creatinine can use to improve. Constitutional: Denied any fatigue denied any fever. Cardio vascular: denied any chest pain, palpitations Gastrointestinal denied any nausea vomiting Pulmonary: Denied any shortness of breath cough Neurologic denied any new focal deficits All inpatient medications were reviewed and appropriate changes in these medications as dictated in the interval history and assessment and plan. PHYSICAL EXAMINATION: GENERAL: The patient is alert and oriented x3, not in any acute distress. Well developed, well nourished. HEENT: Pupils are round and equally reacting to light. EOMI. No scleral icterus. No conjunctival pallor. Normocephalic, atraumatic. No pharyngeal erythema. No thyromegaly. CARDIOVASCULAR: S1 and S2 present. No murmurs, rubs, or gallops. Tachycardic irregularly irregular PULMONARY: Good air entry into bilateral lung elam bibasilar crackles patient is on 2 L of oxygen which he uses at home ABDOMEN: Soft, nontender, nondistended, normoactive bowel sounds. No palpable organomegaly. MUSCULOSKELETAL: No joint swelling or deformity. EXTREMITIES: No cyanosis, clubbing, does have pedal edema NEUROLOGICAL: Gross neurological examination did not reveal any focal deficits. SKIN: No rashes. Assessment and plan Sepsis and bacteremia with Enterococcus faecalis, repeat culture is still positive however there is noresistance this time. Continue on antibiotics. Patient is presently on ampicillin and Rocephin is being added for synergistic affect -Leukocytosis, related to sepsis and bacteremia, improving -Congestive heart failure possible chronic diastolic dysfunction with acute exacerbation, EF is 55-60% -Moderate pulmonary hypertension -Acute renal failure: Related to acute tubular necrosis which is secondary to hypotension -Chronic kidney disease stage III possible hypertensive sclerosis -Anemia, normocytic, most likely secondary to chronic kidney disease -Bilateral hydronephrosis possibly due to urological obstruction, urology consult pending -Hyponatremia most likely hypervolemic, IV Lasix 1 given today. -Hyperlipidemia -History of hypertension Hypotension related to sepsis and bacteremia -Chronic Atrial fibrillation with RVR, rate is currently controlled -History of dementia possibly vascular -Depression -Ruled out pulmonary embolism with a VQ scan which showed low probability for PE DVT prophylaxis: subcu heparin, eliquis O/H still DO NOT RESUSCITATE Objective - Vital Signs Vital signs: Vital Signs Temp 97.7 F 03/27/21 20:00 Pulse 70 03/28/21 08:40 Resp 22 03/28/21 04:00 BP 97/61 03/28/21 04:00 Pulse Ox 96 03/28/21 04:05 Intake & Output 03/27/21 03/28/21 03/28/21 18:59 06:59 18:59 Intake Total 720 Output Total 552 626 Balance 168 -626 Weight 101 kg Intake: Intake, IV Titration 100 Amount Ampicillin 2,000 mg In 100 Sodium Chloride 0.9% 100 ml @ 200 mls/hr IVPB Q12H [facility] Rx#:[id number] Oral 620 Output: Urine 550 625 Stool 2 1 Other: Voiding Method Indwelling Catheter Indwelling Catheter - Labs CBC & Chem 7: 03/27/21 08:06 03/27/21 08:06 Labs: Microbiology - Last 24 Hours (Table) 03/24/21 07:36 Blood Culture Gram Stain - Final Blood Blood Culture - Final Enterococcus faecalis 03/26/21 07:56 Blood Culture Gram Stain - Preliminary Blood 03/23/21 08:20 Blood Culture - Preliminary Blood No Growth after 96 hours
--- NOTE | 2021-03-28 09:19 | P.PN ---
Subjective Patient is seen in follow-up for acute kidney injury on chronic kidney disease. Renal function improving. Has a Duong catheter. Oral intake is fair. No vomiting or diarrhea. Vital signs are stable. General: The patient appeared well nourished and normally developed. HEENT: Head exam is unremarkable. LUNGS: Breath sounds decreased. HEART: Rate and Rhythm are regular. ABDOMEN: Soft, no distention. EXTREMITITES: 1+ edema. Objective - Vital Signs Vital signs: Vital Signs Temp 97.7 F 03/27/21 20:00 Pulse 70 03/28/21 08:40 Resp 22 03/28/21 04:00 BP 97/61 03/28/21 04:00 Pulse Ox 96 03/28/21 04:05 Intake & Output 03/27/21 03/28/21 03/28/21 18:59 06:59 18:59 Intake Total 720 Output Total 552 626 Balance 168 -626 Weight 101 kg Intake: Intake, IV Titration 100 Amount Ampicillin 2,000 mg In 100 Sodium Chloride 0.9% 100 ml @ 200 mls/hr IVPB Q12H [facility] Rx#:[id number] Oral 620 Output: Urine 550 625 Stool 2 1 Other: Voiding Method Indwelling Catheter Indwelling Catheter - Labs CBC & Chem 7: 03/27/21 08:06 03/27/21 08:06 Labs: Microbiology - Last 24 Hours (Table) 03/24/21 07:36 Blood Culture Gram Stain - Final Blood Blood Culture - Final Enterococcus faecalis 03/26/21 07:56 Blood Culture Gram Stain - Preliminary Blood 03/23/21 08:20 Blood Culture - Preliminary Blood No Growth after 96 hours Assessment and Plan Plan: Assessment: 1. Acute kidney injury secondary to ATN secondary to hypotension, diaphoresis an infection. Creatinine peaked at 2.3 for this admission and is 1.56 yesterday. UA benign. Also has bilateral hydronephrosis concerning for obstructive uropathy. 2. Chronic kidney disease stage IIIa with baseline creatinine in the range of 1.1-1.3 secondary to nephrosclerosis. 3. Bilateral hydronephrosis. Urology following. On Flomax. Has a Duong catheter. 4. Enterococcus bacteremia and pneumonia on antibiotics. Infectious disease following. 5. Acute on chronic diastolic CHF with moderate pulmonary hypertension. 6. Hypocalcemia secondary to acute kidney injury. Corrected calcium 7.8. Ionized calcium slightly low. Replaced. Better. 7. Lower extremity edema. Improving with diuresis. 8. Metabolic acidosis secondary to acute kidney injury and IV fluids. Plan: Maintain oral Lasix - this morning I will give him 20 mg IV rather than oral. Encourage oral intake. Cortisol level normal. Maintain midodrine. Continue to monitor renal function and urine output.
[2021-03-28 10:10] LABS: Calcium 7.1 mg/dL (8.4-10.2); Potassium 4.5 mmol/L (3.5-5.1)
--- NOTE | 2021-03-28 11:19 | PN ---
PROGRESS NOTE Mr. Stevenson has had some scrotal bleeding and I resumed his Eliquis at 2.5 mg yesterday. He is in atrial fibrillation. Rate is well controlled. His blood pressure is much better at 110 or so systolic. Vitals are stable. No JVD. S1, S2 heard normally. Short systolic murmur noted. Irregular rate and rhythm noted. Lungs reveal decent air entry, improved. Abdomen is soft. Lower extremities reveal diminished pulses. Central nervous system is normal. Plan is to continue current medical regimen, and Eliquis was resumed at 2.5 mg b.i.d. Patient can be discharged on current regimen. I will see him p.rdavid. MMODL / IJN: [id number] /
--- NOTE | 2021-03-28 14:51 | P.PN ---
Subjective Progress Note Date: 03/28/21 68-year-old male admitted because of bleeding from the scrotum patient is found to be bacteremic later possible source is probably skin breakdown at the scrotal area. Patient enterococcal bacteremia bacteremia and patient is on Unasyn for that. Patient does have history of atrial fibrillation. Patient probably has a chronic diastolic dysfunction patient appears to be volume overloaded with some pulmonary edema bibasilar crackles on lung exam patient will be switched IV Lasix IV fluids will be discontinued. Patient blood pressure is low normal because of which I will hold off on lisinopril. Patient had normal ejection fraction the past patient had a VQ scan today which showed normal ejection fr action. Patient has elevated creatinine of 1.84 patient was in acute renal failure and patient which improved. 03/24/2021 Patient is resting comfortably in the bed he denies any current pain. Patient does have some 3+ pitting edema, lungs are crackles in the bases and throughout the posterior lung elam. Patient repeat chest x-ray today that we demonstrated scattered infiltrates, x-rays reviewed and does appear to be fluid overload status. His BNP on admission was 11,400. Patient's hypotensive this morning at 79/50. Prior to that it was 85/56. Patient is 95% on 3 L nasal cannula. Cardiac meds are held this morning, pending reconsultation. Other vitals include a temp of 98.1, heart rate 68 A. fib. Labs today reveal a white count of 17.5, hemoglobin 11.2. Sodium is 137, potassium 3.7, BUN 50, creatinine 2.34. Patient's glucose is 113. CRP is 16.5. Blood cultures are currently pending repeat. 03/25/2021 Patient is evaluated today, still presenting with crackles throughout all lung elam. Patient had abdominal pelvis CT completed yesterday that showed some airspace infiltrate and atelectasis in both lung bases with pleural thickening that is not significantly different last exam. Cardio megaly. Mild bilateral hydronephrosis with dilated urinary bladder. Hydronephrosis is probably secondary to the urinary retention. Urinary bladder is increased compared to old exam. Hydronephrosis is new compared to old exam. Patient also had a chest CT which revealed bilateral lower lobe pneumonia and atelectasis, pleural effusions, pleural fluid improved compared to old exam. There is new bilateral hydronephrosis. Patient was ultimately retaining urine and had a Duong catheter placed at noon today. Creatinine today is 2.07, sodium 135, calcium 6.6. Urinalysis was obtained which showed moderate blood, rare bacteria. Negative for UTI. Patient had a nephrology consult today who recommends continue gentle IV hydration and a urology consult. 03/26/2021 Patient is sitting up at the chair at the time of my assessment. He states overall he is feeling better. He has an indwelling catheter that is dark fabian in color. His labs are reviewed include a WBC of 11.4, hemoglobin of 10, platelets of 67, sodium 132, BUN 40, creatinine 1.76. Albumin is low at 2.2. His pro-calcitonin was elevated at 1.03. Vital signs include temperature 97.7, heart rate 76, blood pressure 106/66, 93% on 2 L nasal cannula. Limited echo reveals a EF of 55-60%. Current changes from cardiology include discontinued and IV fluids, one-time dose of IV Lasix, decreasing Lopressor. A.m. cortisol level 21. was updated at the bedside yesterday who states that all of his providers are down in [place]. 03/27/2021 Patient can use to have persistent bacteremia although kidney function continued to improve blood pressure remains on the lower side. Patient has enterococcus patient does have a murmur in the attic area as well will discuss with the infectious disease regarding the need for transesophageal echocardiogram to evaluate for hepatitis considering persistent bacteremia. Leukocytosis is improving creatinine can use to improve. 03/28/2021 Patient is evaluated today sitting in the chair. His blood cultures remained positive with group D enterococcus. Blood culture drawn yesterday is still pending. Discussed case with infectious disease who is agreeing on the need for a JAYDE to evaluate for endocarditis. JAYDE has been ordered. Patient's blood pre ssure is in the lower side at 86/55. He has remained afebrile. White blood cell count has normalized. Hemoglobin is stable at 10.3, platelets are increasing and 92. Sodium is 132, BUN 20, creatinine 1.45. ROS Constitutional: Denied any fatigue denied any fever. Cardio vascular: denied any chest pain, palpitations, reports peripheral edema Gastrointestinal denied any nausea vomiting Pulmonary: Denies cough, pressures of breath with exertion Neurologic denied any new focal deficits All inpatient medications were reviewed and appropriate changes in these medications as dictated in the interval history and assessment and plan. PHYSICAL EXAMINATION: GENERAL: The patient is alert and oriented x3, not in any acute distress. Well developed, well nourished. HEENT: Pupils are round and equally reacting to light. EOMI. No scleral icterus. No conjunctival pallor. Normocephalic, atraumatic. No pharyngeal erythema. No thyromegaly. CARDIOVASCULAR: S1 and S2 present. No murmurs, rubs, or gallops. Tachycardic irregularly irregular PULMONARY: Good air entry into bilateral lung elam bibasilar crackles patient is on 2 L of oxygen which he uses at home ABDOMEN: Soft, nontender, distended, normoactive bowel sounds. No palpable organomegaly. MUSCULOSKELETAL: No joint swelling or deformity. EXTREMITIES: No cyanosis, clubbing, does have pedal edema +3 NEUROLOGICAL: Gross neurological examination did not reveal any focal deficits. SKIN: No rashes. Assessment and plan -Sepsis and bacteremia with Enterococcus faecalis, repeat shows group D enterococcus without resistance. Continue on antibiotics -Leukocytosis, related to sepsis and bacteremia, improving -Congestive heart failure possible chronic diastolic dysfunction with acute exacerbation, EF is 55-60% -Moderate pulmonary hypertension -Acute renal failure: Related to acute tubular necrosis which is secondary to hypotension, current is improving 1.56 -Chronic kidney disease stage III possible hypertensive sclerosis -Anemia, normocytic, most likely secondary to chronic kidney disease, monitor trends -Metabolic acidosis which is secondary to acute kidney injury as well as IV fluids which have been discontinued. This is improving. -Bilateral hydronephrosis possibly due to urological obstruction, initiate Flomax and follow up with Dr. Lim in 1-2 weeks. -History of bladder rupture with surgical repair [place] [address] Lim -Hyponatremia most likely hypervolemic, 20 mg of IV Lasix 1 was given today -Hyperlipidemia -History of hypertension Hypotension related to sepsis and bacteremia -Chronic Atrial fibrillation with RVR, rate is currently controlled -History of dementia possibly vascular -Depression -Ruled out pulmonary embolism with a VQ scan which showed low probability for PE DVT prophylaxis: On eliquis RESUMED per cardiology GI prophylaxis DO NOT RESUSCITATE Plan Continue on IV ampicillin. Fluids have been discontinued today. Repeat labs in the morning. Midodrine on for hypotension which is improving. Patient overall prognosis is poor, appreciate nephrology, cardiology and ID consultations. Pending urology consultation for urinary retention and hydronephrosis. Continue with indwelling catheter and strict intake and output. Patient will be discharged with indwelling catheter and follow up with Dr Lim in 1-2 weeks for a voiding trial. Cardiology has signed off will follow on as as-needed basis. Plan is for subacute rehab to [facility] once medically cleared. Pending JAYDE. Objective - Vital Signs Vital signs: Vital Signs Temp 97.6 F 03/28/21 12:00 Pulse 72 03/28/21 13:20 Resp 16 03/28/21 12:00 BP 86/55 03/28/21 12:00 Pulse Ox 95 03/28/21 12:00 Intake & Output 03/27/21 03/28/21 03/28/21 18:59 06:59 18:59 Intake Total 720 330 Output Total 552 626 200 Balance 168 -626 130 Weight 101 kg Intake: Intake, IV Titration 100 Amount Ampicillin 2,000 mg In 100 Sodium Chloride 0.9% 100 ml @ 200 mls/hr IVPB Q12H [facility] Rx#:[id number] Oral 620 330 Output: Urine 550 625 200 Stool 2 1 Other: Voiding Method Indwelling Catheter Indwelling Catheter Indwelling Catheter - Labs CBC & Chem 7: 03/27/21 08:06 03/28/21 08:55 Labs: Abnormal Lab Results - Last 24 Hours (Table) 03/28/21 Range/Units 08:55 Sodium 132 L (137-145) mmol/L BUN 28 H (9-20) mg/dL Creatinine 1.45 H (0.66-1.25) mg/dL Glucose 137 H (74-99) mg/dL Calcium 7.1 L (8.4-10.2) mg/dL Microbiology - Last 24 Hours (Table) 03/23/21 08:20 Blood Culture - Preliminary Blood No Growth after 120 hours 03/26/21 07:56 Blood Culture Gram Stain - Preliminary Blood Blood Culture - Preliminary Group D Enterococcus 03/27/21 08:06 Blood Culture - Preliminary Blood No Growth after 24 hours 03/24/21 07:36 Blood Culture Gram Stain - Final Blood Blood Culture - Final Enterococcus faecalis Assessment and Plan Time with Patient: Greater than 30
--- NOTE | 2021-03-28 18:21 | PN ---
PROGRESS NOTE DATE OF SERVICE: 03/28/2021 REASON FOR FOLLOWUP: Enterococcus bacteremia concerning for endocarditis. INTERVAL HISTORY: The patient is afebrile. The patient is currently breathing comfortably. The patient denies having any chest pain or shortness of breath or cough. No abdominal pain or any diarrhea. PHYSICAL EXAMINATION: Blood pressure is 86/55, pulse of 89, temperature 97.6. He is 95% on 2 L nasal cannula. GENERAL DESCRIPTION: General description is an elderly male lying in bed in no distress. RESPIRATORY SYSTEM: Unlabored breathing. Clear to auscultation anteriorly. HEART: S1, S2. Regular rate and rhythm. ABDOMEN: Soft. No tenderness. LABS: BUN of 28, creatinine 1.45. DIAGNOSTIC IMPRESSION AND PLAN: Patient with Enterococcus faecalis bacteremia concerning for endocarditis in this patient who did have borderline kidney function and high risk of toxicity from gentamicin. Patient is currently on a combination of ampicillin and Rocephin, awaiting JAYDE. Blood culture daily to document clearance of his bacteremia. Continue supportive care. MMODL / IJN: [id number] /
[2021-03-28] MEDS: ATORVASTATIN 10 MG TAB PO SCH (20:37)
[2021-03-29] MEDS: LEVOTHYROXINE 75 MCG TAB PO SCH (06:17)
[2021-03-29] MEDS: LEVOTHYROXINE 100 MCG TAB PO SCH (06:17)
[2021-03-29] MEDS: MIDODRINE 5 MG TAB PO SCH ×3 (06:17→16:58)
[2021-03-29] MEDS: IPRATROPIUM-ALBUTEROL 3 ML NEB INHALATION SCH ×4 (08:06→19:46)
[2021-03-29] MEDS: FORMOTEROL FUMARATE 20 MCG/2 ML NEBU INHALATION SCH ×2 (08:06→19:46)
[2021-03-29 08:13] LABS: Calcium 7.2 mg/dL (8.4-10.2); Magnesium 1.9 mg/dL (1.6-2.3); Potassium 4.2 mmol/L (3.5-5.1)
[2021-03-29] MEDS: AMPICILLIN 2,000 MG in SODIUM CHLORIDE 0.9% 100 ML IVPB SCH ×2 (09:10→20:33)
[2021-03-29] MEDS: APIXABAN 2.5 MG TABLET PO SCH ×2 (09:11→20:34)
[2021-03-29] MEDS: AMIODARONE 100 MG TAB PO SCH (09:11)
[2021-03-29] MEDS: FUROSEMIDE 10 MG/ML 4 ML VIAL IV SCH ×2 (09:11→21:29)
[2021-03-29] MEDS: METOPROLOL TARTRATE 25 MG TAB PO SCH ×2 (09:11→20:34)
[2021-03-29] MEDS: TAMSULOSIN 0.4 MG CAP.ER.24H PO SCH (09:11)
--- NOTE | 2021-03-29 10:04 | P.PN ---
Subjective Patient is seen in follow-up for acute kidney injury on chronic kidney disease. Renal function stable. Oral intake is fair. No vomiting or diarrhea. No active complaints. Vital signs are stable. General: The patient appeared well nourished and normally developed. HEENT: Head exam is unremarkable. LUNGS: Breath sounds decreased. HEART: Rate and Rhythm are regular. ABDOMEN: Soft, no distention. EXTREMITITES: 1+ edema. Objective - Vital Signs Vital signs: Vital Signs Temp 97.8 F 03/29/21 08:00 Pulse 62 03/29/21 08:29 Resp 24 03/29/21 08:00 BP 116/66 03/29/21 08:00 Pulse Ox 96 03/29/21 08:08 Intake & Output 03/28/21 03/29/21 03/29/21 18:59 06:59 18:59 Intake Total 448 450 Output Total 1450 600 Balance -1002 -600 450 Weight 100 kg Intake: Oral 448 450 Output: Urine 1450 600 Other: Voiding Method Indwelling Catheter Indwelling Catheter # Bowel Movements 1 - Labs CBC & Chem 7: 03/27/21 08:06 03/29/21 07:06 Labs: Abnormal Lab Results - Last 24 Hours (Table) 03/28/21 03/29/21 Range/Units 08:55 07:06 Sodium 132 L 131 L (137-145) mmol/L BUN 28 H 24 H (9-20) mg/dL Creatinine 1.45 H 1.40 H (0.66-1.25) mg/dL Glucose 137 H 104 H (74-99) mg/dL Calcium 7.1 L 7.2 L (8.4-10.2) mg/dL Microbiology - Last 24 Hours (Table) 03/23/21 08:20 Blood Culture - Preliminary Blood No Growth after 120 hours 03/26/21 07:56 Blood Culture Gram Stain - Preliminary Blood Blood Culture - Preliminary Group D Enterococcus 03/27/21 08:06 Blood Culture - Preliminary Blood No Growth after 24 hours Assessment and Plan Plan: Assessment: 1. Acute kidney injury secondary to ATN secondary to hypotension, diaphoresis an infection. Creatinine peaked at 2.3 for this admission and is stable at 1.4 today. UA benign. Also has bilateral hydronephrosis concerning for obstructive uropathy. 2. Chronic kidney disease stage IIIa with baseline creatinine in the range of 1.1-1.3 secondary to nephrosclerosis. 3. Bilateral hydronephrosis. Urology following. On Flomax. Has a Duong catheter. 4. Enterococcus bacteremia and pneumonia on antibiotics. Infectious disease following. 5. Acute on chronic diastolic CHF with moderate pulmonary hypertension. 6. Hypocalcemia secondary to acute kidney injury. Corrected calcium 7.8. Ionized calcium slightly low. Replaced. Better. 7. Lower extremity edema. Improving with diuresis. 8. Metabolic acidosis secondary to acute kidney injury and IV fluids. 9. Hypervolemic hyponatremia Plan: Maintain Lasix. Encourage oral intake. Cortisol level normal. Maintain midodrine. Continue to monitor renal function and urine output. JAYDE pending.
--- NOTE | 2021-03-29 12:03 | PN ---
PROGRESS NOTE Mr. Stevenson is a 76-year-old gentleman with a history of previous valve surgery who also has sternal dehiscence. He has a bacteremia with enterococcus and there is a question of transesophageal echo. However options following transesophageal echo are quite difficult because of sternal dehiscence. However, he also looks somewhat volume overloaded. I am recommending Lasix 40 mg IV push q.12 hours. We will keep him n.p.o. after midnight and I will discuss with Dr. Guadarrama regarding transesophageal echo. Prognosis somehow is quite guarded for this patient. He has history of aortic valve replacement, mitral valve repair, chronic atrial fib, hypertension, hyperlipidemia. His atrial fibrillation sometimes seems to be paroxysmal, however, the rate is reasonably well controlled. I am going to recommend that we give him some IV Lasix, continue with his current antibiotics and I will talk to Dr. Guadarrama regarding a transesophageal echo although options following that are quite limited. Physical examination reveals S1, S2 heard normally with a systolic murmur. 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 Lungs reveal diminished air entry, fine rales over both bases. Abdomen is soft. Lower extremities reveal bilateral mild to moderate edema and diminished pulses. Central nervous system grossly no focal deficits but there is generalized weakness. MMODL / IJN: [id number] /
--- NOTE | 2021-03-29 13:46 | P.PN ---
Subjective Progress Note Date: 03/29/21 68-year-old male admitted because of bleeding from the scrotum patient is found to be bacteremic later possible source is probably skin breakdown at the scrotal area. Patient enterococcal bacteremia bacteremia and patient is on Unasyn for that. Patient does have history of atrial fibrillation. Patient probably has a chronic diastolic dysfunction patient appears to be volume overloaded with some pulmonary edema bibasilar crackles on lung exam patient will be switched IV Lasix IV fluids will be discontinued. Patient blood pressure is low normal because of which I will hold off on lisinopril. Patient had normal ejection fraction the past patient had a VQ scan today which showed normal ejection fr action. Patient has elevated creatinine of 1.84 patient was in acute renal failure and patient which improved. 03/24/2021 Patient is resting comfortably in the bed he denies any current pain. Patient does have some 3+ pitting edema, lungs are crackles in the bases and throughout the posterior lung elam. Patient repeat chest x-ray today that we demonstrated scattered infiltrates, x-rays reviewed and does appear to be fluid overload status. His BNP on admission was 11,400. Patient's hypotensive this morning at 79/50. Prior to that it was 85/56. Patient is 95% on 3 L nasal cannula. Cardiac meds are held this morning, pending reconsultation. Other vitals include a temp of 98.1, heart rate 68 A. fib. Labs today reveal a white count of 17.5, hemoglobin 11.2. Sodium is 137, potassium 3.7, BUN 50, creatinine 2.34. Patient's glucose is 113. CRP is 16.5. Blood cultures are currently pending repeat. 03/25/2021 Patient is evaluated today, still presenting with crackles throughout all lung elam. Patient had abdominal pelvis CT completed yesterday that showed some airspace infiltrate and atelectasis in both lung bases with pleural thickening that is not significantly different last exam. Cardio megaly. Mild bilateral hydronephrosis with dilated urinary bladder. Hydronephrosis is probably secondary to the urinary retention. Urinary bladder is increased compared to old exam. Hydronephrosis is new compared to old exam. Patient also had a chest CT which revealed bilateral lower lobe pneumonia and atelectasis, pleural effusions, pleural fluid improved compared to old exam. There is new bilateral hydronephrosis. Patient was ultimately retaining urine and had a Duong catheter placed at noon today. Creatinine today is 2.07, sodium 135, calcium 6.6. Urinalysis was obtained which showed moderate blood, rare bacteria. Negative for UTI. Patient had a nephrology consult today who recommends continue gentle IV hydration and a urology consult. 03/26/2021 Patient is sitting up at the chair at the time of my assessment. He states overall he is feeling better. He has an indwelling catheter that is dark fabian in color. His labs are reviewed include a WBC of 11.4, hemoglobin of 10, platelets of 67, sodium 132, BUN 40, creatinine 1.76. Albumin is low at 2.2. His pro-calcitonin was elevated at 1.03. Vital signs include temperature 97.7, heart rate 76, blood pressure 106/66, 93% on 2 L nasal cannula. Limited echo reveals a EF of 55-60%. Current changes from cardiology include discontinued and IV fluids, one-time dose of IV Lasix, decreasing Lopressor. A.m. cortisol level 21. was updated at the bedside yesterday who states that all of his providers are down in [place]. 03/27/2021 Patient can use to have persistent bacteremia although kidney function continued to improve blood pressure remains on the lower side. Patient has enterococcus patient does have a murmur in the attic area as well will discuss with the infectious disease regarding the need for transesophageal echocardiogram to evaluate for hepatitis considering persistent bacteremia. Leukocytosis is improving creatinine can use to improve. 03/28/2021 Patient is evaluated today sitting in the chair. His blood cultures remained positive with group D enterococcus. Blood culture drawn yesterday is still pending. Discussed case with infectious disease who is agreeing on the need for a JAYDE to evaluate for endocarditis. JAYDE has been ordered. Patient's blood pressure is in the lower side at 86/55. He has remained afebrile. White blood cell count has normalized. Hemoglobin is stable at 10.3, platelets are increasing and 92. Sodium is 132, BUN 20, creatinine 1.45. 03/29/21 Discussed with cardiology services, tentative plan is for a JAYDE tomorrow with Dr. Guadarrama, the case will be discussed. Cardiology is recommending IV Lasix 40 every 12 in the meantime. Please keep patient nothing by mouth after midnight. Patient is sitting up in the chair today, his lower extreme edema is continuing to improve. He does have some faint bilateral crackles in his bases. Labs reviewed include a sodium of 131, BUN of 24, creatinine of 1.4. Magnesium is 1.9 today potassium is 4.2. Blood pressure is 116/66, he did have a blood pressure of 90s this morning. Pending finalized repeat blood cultures. ROS Constitutional: Denied any fatigue denied any fever. Cardio vascular: denied any chest pain, palpitations, reports peripheral edema Gastrointestinal denied any nausea vomiting Pulmonary: Denies cough, shortness of breath with exertion Neurologic denied any new focal deficits, reports generalized weakness All inpatient medications were reviewed and appropriate changes in these medications as dictated in the interval history and assessment and plan. PHYSICAL EXAMINATION: GENERAL: The patient is alert and oriented x3, not in any acute distress. Well developed, well nourished. HEENT: Pupils are round and equally reacting to light. EOMI. No scleral icterus. No conjunctival pallor. Normocephalic, atraumatic. No pharyngeal erythema. No thyromegaly. CARDIOVASCULAR: S1 and S2 present. No murmurs, rubs, or gallops. irregularly irregular PULMONARY: Good air entry into bilateral lung elam bibasilar crackles patient is on 2 L of oxygen which he uses at home ABDOMEN: Soft, nontender, distended, normoactive bowel sounds. No palpable organomegaly. MUSCULOSKELETAL: No joint swelling or deformity. EXTREMITIES: No cyanosis, clubbing, does have pedal edema +2 NEUROLOGICAL: Gross neurological examination did not reveal any focal deficits. SKIN: No rashes. Assessment and plan -Sepsis and bacteremia with Enterococcus faecalis, repeat shows group D enteroco ccus without resistance. Continue on antibiotics -Leukocytosis, related to sepsis and bacteremia, improving -Congestive heart failure possible chronic diastolic dysfunction with acute exacerbation, EF is 55-60%, IV Lasix -Moderate pulmonary hypertension -Acute renal failure: Related to acute tubular necrosis which is secondary to hypotension, current is improving 1.4 -Chronic kidney disease stage III possible hypertensive sclerosis -Anemia, normocytic, most likely secondary to chronic kidney disease, monitor trends -Metabolic acidosis which is secondary to acute kidney injury as well as IV fl uids which have been discontinued. This is improving. -Bilateral hydronephrosis possibly due to urological obstruction, initiate Flomax and follow up with Dr. Lim in 1-2 weeks. -History of bladder rupture with surgical repair in [address] Lim -Hyponatremia most likely hypervolemic, 40 mg of IV Lasix every 12 -Hyperlipidemia -History of hypertension Hypotension related to sepsis and bacteremia -Chronic Atrial fibrillation with RVR, rate is currently controlled -History of dementia possibly vascular -Depression -Ruled out pulmonary embolism with a VQ scan which showed low probability for PE DVT prophylaxis: On eliquis RESUMED per cardiology GI prophylaxis DO NOT RESUSCITATE Plan Continue on IV ampicillin. Fluids have been discontinued today. Repeat labs in the morning. Midodrine on for hypotension which is improving. Patient overall prognosis is poor, appreciate nephrology, cardiology and ID consultations. Pending urology consultation for urinary retention and hydronephrosis. Continue with indwelling catheter and strict intake and output. Patient will be discharged with indwelling catheter and follow up with Dr Lim in 1-2 weeks for a voiding trial. Cardiology is recommending to resume IV Lasix 40 mg every 12, tentative JAYDE in the morning. Objective - Vital Signs Vital signs: Vital Signs Temp 97.8 F 03/29/21 08:00 Pulse 62 03/29/21 12:15 Resp 20 03/29/21 13:12 BP 116/66 03/29/21 08:00 Pulse Ox 96 03/29/21 08:08 Intake & Output 03/28/21 03/29/21 03/29/21 18:59 06:59 18:59 Intake Total 448 450 Output Total 6108 196 9978 Balance -1002 -600 -550 Weight 100 kg Intake: Oral 448 450 Output: Urine 7711 756 8255 Straight 1000 Other: Voiding Method Indwelling Catheter Indwelling Catheter Indwelling Catheter # Bowel Movements 1 - Labs CBC & Chem 7: 03/27/21 08:06 03/29/21 07:06 Labs: Abnormal Lab Results - Last 24 Hours (Table) 03/29/21 Range/Units 07:06 Sodium 131 L (137-145) mmol/L BUN 24 H (9-20) mg/dL Creatinine 1.40 H (0.66-1.25) mg/dL Glucose 104 H (74-99) mg/dL Calcium 7.2 L (8.4-10.2) mg/dL Microbiology - Last 24 Hours (Table) 03/23/21 08:20 Blood Culture - Final Blood No Growth after 144 hours 03/27/21 08:06 Blood Culture - Preliminary Blood No Growth after 48 hours 03/26/21 07:56 Blood Culture Gram Stain - Preliminary Blood Blood Culture - Preliminary Group D Enterococcus Assessment and Plan Time with Patient: Greater than 30
--- NOTE | 2021-03-29 18:28 | PN ---
PROGRESS NOTE DATE OF SERVICE: 03/29/2021 REASON FOR FOLLOWUP: Enterococcus bacteremia concerning for endocarditis. INTERVAL HISTORY: The patient is afebrile. The patient is currently breathing comfortably. The patient denies having any chest pain or shortness. Occasional cough. No abdominal pain, no diarrhea. PHYSICAL EXAMINATION: Blood pressure 104/68 with a pulse of 78, temperature 98. He is 95% on 3 L nasal cannula. General description is an elderly male up in the bed in no distress. Respiratory system: Unlabored breathing, decreased breath sounds at bases. No wheeze. Heart S1, S2. Regular rate and rhythm. Abdomen soft, no tenderness. LABS: BUN of 24, creatinine is 1.40. DIAGNOSTIC IMPRESSION AND PLAN: Patient with Enterococcus faecalis bacteremia concerning for endovascular source of persistent bacteremia. Waiting for the JAYDE to be completed. Patient to continue with ampicillin and Rocephin and monitor clinical course closely. MMODL / IJN: [id number] /
[2021-03-29] MEDS: ATORVASTATIN 10 MG TAB PO SCH (20:34)
[2021-03-30] MEDS: LEVOTHYROXINE 75 MCG TAB PO SCH (06:41)
[2021-03-30] MEDS: LEVOTHYROXINE 100 MCG TAB PO SCH (06:41)
[2021-03-30] MEDS: MIDODRINE 5 MG TAB PO SCH ×3 (06:41→17:33)
[2021-03-30 08:18] LABS: Anisocytosis Slight; Basophils % (A) 0 %; Eosinophils # (A) 0.1 k/uL (0-0.7); Eosinophils % (A) 1 %; HCT 34.5 % (39.0-53.0); HGB 11.2 gm/dL (13.0-17.5); Lymphocytes # (A) 0.4 k/uL (1.0-4.8); Lymphocytes % (A) 5 %; MCH 29.1 pg (25.0-35.0); MCHC 32.3 g/dL (31.0-37.0); MCV 89.9 fL (80.0-100.0); Mean Platelet Volume 8.7; Monocytes # (A) 0.2 k/uL (0-1.0); Monocytes % (A) 3 %; Neutrophils # (A) 7.6 k/uL (1.3-7.7); Neutrophils % (A) 90 %; RBC 3.84 m/uL (4.30-5.90); RDW 17.1 % (11.5-15.5); WBC 8.5 k/uL (3.8-10.6)
[2021-03-30 08:22] LABS: Calcium 7.3 mg/dL (8.4-10.2); Platelet Count 144 k/uL (150-450); Potassium 4.1 mmol/L (3.5-5.1)
[2021-03-30] MEDS: IPRATROPIUM-ALBUTEROL 3 ML NEB INHALATION SCH ×4 (08:26→20:25)
[2021-03-30] MEDS: FORMOTEROL FUMARATE 20 MCG/2 ML NEBU INHALATION SCH ×2 (08:26→20:25)
[2021-03-30 08:37] LABS: C Reactive Protein 13.9 mg/dL (<1.0)
[2021-03-30] MEDS: AMPICILLIN 2,000 MG in SODIUM CHLORIDE 0.9% 100 ML IVPB SCH ×2 (08:53→20:37)
[2021-03-30] MEDS: METOPROLOL TARTRATE 25 MG TAB PO SCH ×3 (08:56→21:05)
[2021-03-30] MEDS: TAMSULOSIN 0.4 MG CAP.ER.24H PO SCH (08:59)
[2021-03-30] MEDS: APIXABAN 2.5 MG TABLET PO SCH ×2 (09:00→21:05)
[2021-03-30] MEDS: AMIODARONE 100 MG TAB PO SCH (09:00)
[2021-03-30] MEDS: FUROSEMIDE 10 MG/ML 4 ML VIAL IV SCH ×2 (10:30→22:17)
[2021-03-30 10:57] LABS: Erythrocyte Sedimentation Rate 58 mm/hr (0-15)
--- NOTE | 2021-03-30 14:32 | P.PN ---
Subjective Progress Note Date: 03/30/21 68-year-old male admitted because of bleeding from the scrotum patient is found to be bacteremic later possible source is probably skin breakdown at the scrotal area. Patient enterococcal bacteremia bacteremia and patient is on Unasyn for that. Patient does have history of atrial fibrillation. Patient probably has a chronic diastolic dysfunction patient appears to be volume overloaded with some pulmonary edema bibasilar crackles on lung exam patient will be switched IV Lasix IV fluids will be discontinued. Patient blood pressure is low normal because of which I will hold off on lisinopril. Patient had normal ejection fraction the past patient had a VQ scan today which showed normal ejection fr action. Patient has elevated creatinine of 1.84 patient was in acute renal failure and patient which improved. 03/24/2021 Patient is resting comfortably in the bed he denies any current pain. Patient does have some 3+ pitting edema, lungs are crackles in the bases and throughout the posterior lung elam. Patient repeat chest x-ray today that we demonstrated scattered infiltrates, x-rays reviewed and does appear to be fluid overload status. His BNP on admission was 11,400. Patient's hypotensive this morning at 79/50. Prior to that it was 85/56. Patient is 95% on 3 L nasal cannula. Cardiac meds are held this morning, pending reconsultation. Other vitals include a temp of 98.1, heart rate 68 A. fib. Labs today reveal a white count of 17.5, hemoglobin 11.2. Sodium is 137, potassium 3.7, BUN 50, creatinine 2.34. Patient's glucose is 113. CRP is 16.5. Blood cultures are currently pending repeat. 03/25/2021 Patient is evaluated today, still presenting with crackles throughout all lung elam. Patient had abdominal pelvis CT completed yesterday that showed some airspace infiltrate and atelectasis in both lung bases with pleural thickening that is not significantly different last exam. Cardio megaly. Mild bilateral hydronephrosis with dilated urinary bladder. Hydronephrosis is probably secondary to the urinary retention. Urinary bladder is increased compared to old exam. Hydronephrosis is new compared to old exam. Patient also had a chest CT which revealed bilateral lower lobe pneumonia and atelectasis, pleural effusions, pleural fluid improved compared to old exam. There is new bilateral hydronephrosis. Patient was ultimately retaining urine and had a Duong catheter placed at noon today. Creatinine today is 2.07, sodium 135, calcium 6.6. Urinalysis was obtained which showed moderate blood, rare bacteria. Negative for UTI. Patient had a nephrology consult today who recommends continue gentle IV hydration and a urology consult. 03/26/2021 Patient is sitting up at the chair at the time of my assessment. He states overall he is feeling better. He has an indwelling catheter that is dark fabian in color. His labs are reviewed include a WBC of 11.4, hemoglobin of 10, platelets of 67, sodium 132, BUN 40, creatinine 1.76. Albumin is low at 2.2. His pro-calcitonin was elevated at 1.03. Vital signs include temperature 97.7, heart rate 76, blood pressure 106/66, 93% on 2 L nasal cannula. Limited echo reveals a EF of 55-60%. Current changes from cardiology include discontinued and IV fluids, one-time dose of IV Lasix, decreasing Lopressor. A.m. cortisol level 21. was updated at the bedside yesterday who states that all of his providers are down in [place]. 03/27/2021 Patient can use to have persistent bacteremia although kidney function continued to improve blood pressure remains on the lower side. Patient has enterococcus patient does have a murmur in the attic area as well will discuss with the infectious disease regarding the need for transesophageal echocardiogram to evaluate for hepatitis considering persistent bacteremia. Leukocytosis is improving creatinine can use to improve. 03/28/2021 Patient is evaluated today sitting in the chair. His blood cultures remained positive with group D enterococcus. Blood culture drawn yesterday is still pending. Discussed case with infectious disease who is agreeing on the need for a JAYDE to evaluate for endocarditis. JAYDE has been ordered. Patient's blood pressure is in the lower side at 86/55. He has remained afebrile. White blood cell count has normalized. Hemoglobin is stable at 10.3, platelets are increasing and 92. Sodium is 132, BUN 20, creatinine 1.45. 03/29/21 Discussed with cardiology services, tentative plan is for a JAYDE tomorrow with Dr. Guadarrama, the case will be discussed. Cardiology is recommending IV Lasix 40 every 12 in the meantime. Please keep patient nothing by mouth after midnight. Patient is sitting up in the chair today, his lower extreme edema is continuing to improve. He does have some faint bilateral crackles in his bases. Labs reviewed include a sodium of 131, BUN of 24, creatinine of 1.4. Magnesium is 1.9 today potassium is 4.2. Blood pressure is 116/66, he did have a blood pressure of 90s this morning. Pending finalized repeat blood cultures. 03/30/2021 Patient's temperature with his at the bedside, his urine is clearing up in color today. He is still on IV Lasix and demonstrates stable bilateral crackles in the bases. Patient is evaluated by cardiology the bedside today who feels that patient is a high-risk candidate for JAYDE almost required intubation prior to the procedure to protect his respiratory status. We will consult cardi othoracic to evaluate the patient, as Dr. Riggs performed his aortic valve replacement. JAYDE is requested to rule out endocarditis or infection source from the heart. This is explained in detail with the and the patient. 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 We are agreeing since patient is high risk. Laboratory to include a hemoglobin of 11.2, platelet of 144, sodium 131, BUN of 27, creatinine 1.41. His CRP is 13.9. We will wait for cardiothoracic consultation. ROS Constitutional: Denied any fatigue denied any fever. Cardio vascular: denied any chest pain, palpitations, reports peripheral edema Gastrointestinal denied any nausea vomiting Pulmonary: Denies cough, shortness of breath with exertion Neurologic denied any new focal deficits, reports generalized weakness All inpatient medications were reviewed and appropriate changes in these medications as dictated in the interval history and assessment and plan. PHYSICAL EXAMINATION: GENERAL: The patient is alert and oriented x3, not in any acute distress. Well developed, well nourished. HEENT: Pupils are round and equally reacting to light. EOMI. No scleral icterus. No conjunctival pallor. Normocephalic, atraumatic. No pharyngeal erythema. No thyromegaly. CARDIOVASCULAR: S1 and S2 present. No murmurs, rubs, or gallops. irregularly irregular PULMONARY: Good air entry into bilateral lung elam bibasilar crackles patient is on 2 L of oxygen which he uses at home ABDOMEN: Soft, nontender, distended, normoactive bowel sounds. No palpable organomegaly. MUSCULOSKELETAL: No joint swelling or deformity. EXTREMITIES: No cyanosis, clubbing, does have pedal edema +2 NEUROLOGICAL: Gross neurological examination did not reveal any focal deficits. SKIN: No rashes. Assessment and plan -Sepsis and bacteremia with Enterococcus faecalis, repeat shows group D enterococcus without resistance. Continue on antibiotics -Leukocytosis, related to sepsis and bacteremia, improving -Congestive heart failure possible chronic diastolic dysfunction with acute exacerbation, EF is 55-60%, IV Lasix -Moderate pulmonary hypertension -Acute renal failure: Related to acute tubular necrosis which is secondary to hypotension, current is improving 1.4 -Chronic kidney disease stage III possible hypertensive sclerosis -Anemia, normocytic, most likely secondary to chronic kidney disease, monitor trends -Metabolic acidosis which is secondary to acute kidney injury as well as IV fluids which have been discontinued. This is improving. -Bilateral hydronephrosis possibly due to urological obstruction, initiate Flomax and follow up with Dr. Lim in 1-2 weeks. -History of bladder rupture with surgical repair [place] [address] Lim -Hyponatremia most likely hypervolemic, 40 mg of IV Lasix every 12 -Hyperlipidemia -History of hypertension Hypotension related to sepsis and bacteremia -Chronic Atrial fibrillation with RVR, rate is currently controlled -History of dementia possibly vascular -Depression -Ruled out pulmonary embolism with a VQ scan which showed low probability for PE DVT prophylaxis: On eliquis RESUMED per cardiology GI prophylaxis DO NOT RESUSCITATE Plan Continue on IV ampicillin. Fluids have been discontinued today. Repeat labs in the morning. Midodrine on for hypotension which is improving. Patient overall prognosis is poor, appreciate nephrology, cardiology and ID consultations. Pending urology consultation for urinary retention and hydronephrosis. Continue with indwelling catheter and strict intake and output. Patient will be d ischarged with indwelling catheter and follow up with Dr Lim in 1-2 weeks for a voiding trial. Cardiology is recommending to resume IV Lasix 40 mg every 12. Cardiology evaluation today discussed that this is a high-risk JAYDE and will most likely require intubation prior. Patient and his at the bedside or update on this. We consult to cardiothoracic surgery to evaluate the patient for a possible endocarditis associated infection for ongoing positive blood cultures with Enterococcus faecalis. Most likely patient's scrotal bleeding and breakdown was source of entrance for contamination with enterococcus, which subsequently caused bacteremia and possibly caused mitral valve to become infected. Despite IV antibiotic therapy patient has had 5 positive blood cultures for enterococcus faecalis with resistance. Prognosis is extremely guarded in this patient. Continue to monitor closely. Objective - Vital Signs Vital signs: Vital Signs Temp 98.1 F 03/30/21 08:00 Pulse 83 03/30/21 10:28 Resp 20 03/30/21 08:00 BP 94/57 03/30/21 10:28 Pulse Ox 97 03/30/21 10:28 Intake & Output 03/29/21 03/30/21 03/30/21 18:59 06:59 18:59 Intake Total 450 0 Output Total 1999 1919 Balance -1550 -192 0 Intake: Oral 450 0 Output: Urine 1999 Other: Voiding Method Indwelling Catheter Indwelling Catheter # Bowel Movements 1 - Labs CBC & Chem 7: 03/30/21 07:26 03/30/21 07:26 Labs: Abnormal Lab Results - Last 24 Hours (Table) 03/30/21 03/30/21 Range/Units 07:26 07:26 RBC 3.84 L (4.30-5.90) m/uL Hgb 11.2 L (13.0-17.5) gm/dL Hct 34.5 L (39.0-53.0) % RDW 17.1 H (11.5-15.5) % Plt Count 144 L D (150-450) k/uL Lymphocytes # 0.4 L (1.0-4.8) k/uL ESR 58 H (0-15) mm/hr Sodium 131 L (137-145) mmol/L BUN 27 H (9-20) mg/dL Creatinine 1.41 H (0.66-1.25) mg/dL Glucose 103 H (74-99) mg/dL Calcium 7.3 L (8.4-10.2) mg/dL C-Reactive Protein 13.9 H (<1.0) mg/dL Microbiology - Last 24 Hours (Table) 03/27/21 08:06 Blood Culture - Preliminary Blood No Growth after 72 hours 03/26/21 07:56 Blood Culture Gram Stain - Final Blood Blood Culture - Final Enterococcus faecalis 03/24/21 07:36 Blood Culture Gram Stain - Final Blood Blood Culture - Final Enterococcus faecalis 03/23/21 08:20 Blood Culture - Final Blood No Growth after 144 hours Assessment and Plan Time with Patient: Greater than 30
--- NOTE | 2021-03-30 14:45 | P.PN ---
Subjective History of present illness: This is a 76-year-old male patient with past medical history of mitral valve repair, aortic valve replacement 2017, chronic atrial fibrillation, hypertension, hyperlipidemia, paroxysmal atrial fibrillation, dementia and s ternal infection s/p open heart surgery that required surgical intervention. Patient is unable to provide information and information is obtained from the patient's at bedside. Patient apparently developed bleeding from the scrotal area which his states was probably from him scratching. Due to him being on eliquis, there was significant bleeding and patient was taken to the emergency center for further evaluation. He was found to be quite hypotensive at 79/64 heart rate was in the 50s. He was given IV fluid bolus of 500 with some improvement of his blood pressure. EKG was atrial fibrillation at rate of 59 bpm. WBC 13.4, hemoglobin 11.5, platelet count 76. Sodium 134, potassium 3.8, BUN 66 and creatinine 2.29. D-dimer 4.05. Troponin 0.077. ProBNP 11,400. Coronavirus PCR not detected. Urinalysis positive for blood. Chest x-ray reveals mild to moderate heart failure. Limited echocardiogram obtained reveals preserved LV systolic function with ejection fraction 55-60% with a normally functioning bioprosthetic aortic valve with a mean gradient of 10 mmHg, mild MR with a mean gradient of 3 mmHg and mild TR. Infectious disease is following regarding ongoing bacteremia. 03/30/2021 Pt seen and examined sitting up in recliner chair in no acute distress. He denies chest pain, shortness of breath, dizziness or palpitations. Blood pressure 86/58 heart rate 82 afebrile and maintaining oxygen saturation on 3 L nasal cannula. He continues to be in atrial fibrillation heart rates in the 70s to 90s. Laboratory data reviewed, sodium 131, potassium 4.1, BUN 27, serum creatinine 1.4, WBC 8.5, hemoglobin 11.2, platelets 144. Physical examination: Gen: This is a a 76-year-old male. He is resting in bed and appears to be comfortable. HEENT: Head is atraumatic, normocephalic. Pupils equal, round. Sclerae is anicteric. NECK: Supple. No JVD. No lymphadenopathy. No thyromegaly. LUNGS: Scattered rhonchi, no wheezes or rales. HEART: Irregular rate and rhythm. Systolic ejection murmur. EXTREMITIES: 1+ bilateral lower extremity pitting edema. No calf tenderness. Assessment: Scrotal bleeding, stable Paroxysmal atrial fibrillation on eliquis at home, currently on hold for scrotal wound bleeding. Episodes of RVR. Bacteremia, ongoing Status post mitral valve repair and aortic valve replacement History of sternal infection s/p open heart surgery Blood culture positive for Enterococcus faecalis Leukocytosis Thrombocytopenia Acute on chronic kidney disease Hypertension Hyperlipidemia Dementia Plan: -Recommend CT surgery consult -Will hold off on JAYDE today due to patient being a high risk at this time and may require intubation -ID following patient on IV ampicillin -Continue Eliquis 2.5mg BID -Continue amiodarone 100mg daily and lopressor 25mg BID -Continue IV diuresis 40mg BID, monitor renal function and electrolytes -Further recommendations based on clinical course Nurse practitioner note has been reviewed, I agree with documented findings and plan of care. Patient was seen and examined. Objective - Vital Signs Vital signs: Vital Signs Temp 98.1 F 03/30/21 12:00 Pulse 82 03/30/21 12:00 Resp 20 03/30/21 12:00 BP 86/58 03/30/21 12:00 Pulse Ox 99 03/30/21 12:00 Intake & Output 03/29/21 03/30/21 03/30/21 18:59 06:59 18:59 Intake Total 450 0 Output Total 1999 1919 Balance -1550 -1920 0 Intake: Oral 450 0 Output: Urine 1999 Other: Voiding Method Indwelling Catheter Indwelling Catheter Indwelling Catheter # Bowel Movements 1 - Labs CBC & Chem 7: 03/30/21 07:26 03/30/21 07:26 Labs: Abnormal Lab Results - Last 24 Hours (Table) 03/30/21 03/30/21 Range/Units 07:26 07:26 RBC 3.84 L (4.30-5.90) m/uL Hgb 11.2 L (13.0-17.5) gm/dL Hct 34.5 L (39.0-53.0) % RDW 17.1 H (11.5-15.5) % Plt Count 144 L D (150-450) k/uL Lymphocytes # 0.4 L (1.0-4.8) k/uL ESR 58 H (0-15) mm/hr Sodium 131 L (137-145) mmol/L BUN 27 H (9-20) mg/dL Creatinine 1.41 H (0.66-1.25) mg/dL Glucose 103 H (74-99) mg/dL Calcium 7.3 L (8.4-10.2) mg/dL C-Reactive Protein 13.9 H (<1.0) mg/dL Microbiology - Last 24 Hours (Table) 03/27/21 08:06 Blood Culture - Preliminary Blood No Growth after 72 hours 03/26/21 07:56 Blood Culture Gram Stain - Final Blood Blood Culture - Final Enterococcus faecalis 03/24/21 07:36 Blood Culture Gram Stain - Final Blood Blood Culture - Final Enterococcus faecalis 03/23/21 08:20 Blood Culture - Final Blood No Growth after 144 hours
--- NOTE | 2021-03-30 17:40 | P.GSCN ---
<Orion Quiroz - Last Filed: 03/30/21 17:37> History of Present Illness Consult date: 03/30/21 Reason for Consult: History of aortic valve replacement with mitral valve repair in September 2016 and status post sternal exploration and sternal debridement and wound closure with bilateral pectoralis major myocutaneous advancement flaps in September 2016. Requesting physician: rDe Garcia History of present illness: This is a 76-year-old gentleman who is followed by Dr. Russell Das on an outpatient basis for his primary care service. He is a past medical history significant for aortic valve insufficiency, mitral valve regurgitation status post aortic valve replacement and mitral valve repair in September 2016, history of paroxysmal atrial fibrillation status post modified Frederick maze procedure in September 2016 and is on eliquis as an outpatient for anticoagulation, hypertension, hyperlipidemia, history of thyroid cancer, remote history of nicotine dependence quit smoking over 40 years ago, chronic congestive heart failure, chronic kidney disease stage III, home oxygen dependent on 2 L nasal cannula, dementia, deep vein thrombosis to his right lower extremity, history of bladder rupture in 2019 multiple falls at home and obesity. On 03/21/2021 the patient presented to the emergency department here at [facility] via EMS for evaluation of scrotal bleeding. The patient denies any recent trauma, although his states that he has had 3 falls at home in the last 2 weeks, denies any shortness of breath, chest pain, fever, chills, nausea, vomiting, headache, hematemesis, hemoptysis, lightheadedness or syncope. His initial laboratory results showed a WBC count of 13.4, hemoglobin 11.5, hematocrit 35.6, platelets 76, PT 14.0, INR 1.4, sodium 134, potassium 3.8, BUN 66, creatinine 2.29, glucose 123, albumin 2.7 and a troponin of 0.077. The patient has been afebrile. Due to the patient's presenting symptoms and lab results the patient was admitted to the hospital for further evaluation and treatment recommendations. Subsequently, blood cultures were drawn on 03/21/2021 which showed positive for enterococcus faecalis. Infectious disease was consulted and the patient is currently being treated with ampicillin 2 g IV piggyback every 12 hours and Rocephin 2 g IV piggyback every 12 hours. A chest x-ray was completed which showed consistent with mild to moderate CHF. Patient also underwent a computed tomography scan of his chest without contrast which demonstrated bilateral lower lobe pneumonia and atelectasis, pleural effusions, and cardiomegaly. A 12-lead EKG was completed which showed atrial fibrillation with a right bundle branch block and slow ventricular response with a heart rate of 59 BPM. Due to the positive blood cultures a a transthoracic 2-D echocardiogram was completed which demonstrated an overall left ventricular systolic function to be normal with an ejection fraction between 55 and 60%, a peak/mean gradient across aortic valve of 23.51 mmHg/10.21 mmHg, a normally functioning bioprosthetic valve, mild mitral annular calcification, mild mitral valve regurgitation, a peak and mean MV gradient of 13.20 mmHg/3.33 mmHg as measured by Doppler and mild tricuspid valve regurgitation. Due to the patient's history of aortic valve replacement and mitral valve repair with sternal dehiscence a consult was placed to Dr. Mor Lebron from cardiothoracic surgery for further evaluation and treatment recommendations. Currently the patient is sitting up to the bedside chair, his and son are at his bedside. The patient remains afebrile and is being followed by Dr. Gonzalez from infectious disease for his enterococcus faecalis bacteremia. Review of Systems A 14 point review of systems was completed was negative except as mentioned in HPI. Past Medical History Past Medical History: Atrial Fibrillation, Cancer, Heart Failure, Dementia, Deep Vein Thrombosis (DVT), Hearing Disorder / Deafness (Patient is hard of hearing), Hyperlipidemia, Hypertension, Osteoarthritis (OA), Pulmonary Embolus (PE), Thyroid Disorder, Vascular Disorder Additional Past Medical History / Comment(s): THYROID CANCER with surgery/radio active tablets, bilateral lower leg cellulitis 2016, varicose veins, past DVTs and PEs, short term memory problems, episodes of hypotension, hiatal hernia, gastritis. Insomnia. Depression. Atrial fibrillation. History of dementia. History of Any Multi-Drug Resistant Organisms: None Reported Past Surgical History: Cardiac Valve Replacement, Heart Catheterization, Joint Replacement Additional Past Surgical History / Comment(s): Thyroidectomy, total left knee replacement, JAYDE/CVN, 09/29/16 aortic valve replacement with bovine valve and mitral valve repair, mediastinal lymph node biopsy, sternal chest wound debridement/ wound vac/sternotomy and muscle straps, COLONOSCOPY, EGD, bilateral cataract removals and L eye was injured requirin surgery to remove blood. Past Anesthesia/Blood Transfusion Reactions: No Reported Reaction Additional Past Anesthesia/Blood Transfusion Reaction / Comm: Pt has received blood in past without reaction. Past Psychological History: Depression Smoking Status: Former smoker Past Alcohol Use History: Occasional Past Drug Use History: None Reported - Past Family History Father Family Medical History: Coronary Artery Disease (CAD) Additional Family Medical History / Comment(s): Father at the age pf 76yrs from heart problems. Mother Family Medical History: Vascular Disorder Additional Family Medical History / Comment(s): Mother had varicosities. She lived to be 92 yrs old. Dementia, gout. Brother(s) Family Medical History: Cancer Additional Family Medical History / Comment(s): LIVER CA. BLOOD CLOT. Medications and Allergies Home Medications Medication Instructions Recorded Confirmed Type Apixaban [Eliquis] 5 mg PO BID 05/30/19 03/21/21 History Amiodarone [Cordarone] 100 mg PO DAILY 12/01/20 03/21/21 History Atorvastatin [Lipitor] 10 mg PO HS 12/01/20 03/21/21 History Diltiazem HCl [Cartia Xt] 120 mg PO DAILY 12/01/20 03/21/21 History Furosemide [Lasix] 40 mg PO BID 12/01/20 03/21/21 History Levothyroxine Sodium [Synthroid] 175 mcg PO DAILY 12/01/20 03/21/21 History Metoprolol Tartrate [Lopressor] 100 mg PO BID 12/01/20 03/21/21 History lisinopriL [Zestril] 2.5 mg PO DAILY 12/01/20 03/21/21 History Ipratropium-Albuterol Nebulize 3 ml INHALATION RT-QID PRN #300 ml 12/12/20 03/21/21 Rx [Duoneb 0.5 mg-3 mg/3 ml Soln] Umeclidinium Brm/Vilanterol Tr 1 puff INHALATION RT-BID #1 device 12/12/20 03/21/21 Rx [Anoro Ellipta 62.5-25 Mcg INH] Allergies Allergy/AdvReac Type Severity Reaction Status Date / Time No Known Allergies Allergy Verified 03/21/21 16:10 Surgical - Exam Vital Signs Temp Pulse Resp 97.7 F 51 L 20 03/21/21 12:22 03/21/21 12:22 03/21/21 12:22 - General well developed, well nourished, no distress, no pain, chronically ill, obese - Eyes PERRL, normal ocular movement, no pale, no icteric - ENT normal pinna, normal nares, normal mucosa, no congestion, decreased hearing, dentures - Neck Neck is supple, no lymphadenopathy. no masses, no bruits, trachea midline, no venous distension - Respiratory Lung sounds diminished throughout with few scattered crackles to his bilateral bases. Respirations are symmetrical and nonlabored. Currently on 3 L nasal cannula with oxygen saturations 97%. - Cardiovascular Irregular rhythm and controlled rate. S1 and S2 present, negative for S3 or gallop. Positive pansystolic murmur /. Evidence sternal dehiscence. +2 to +3 edema to his bilateral lower extremities. - Abdomen Abdomen is soft, nontender and nondistended. Active bowel sounds present all 4 quadrants. No guarding or rigidity. No organomegaly appreciated. - Genitourinary Penile and scrotal edema. - Integumentary Skin is warm, dry, with no clubbing or cyanosis. - Neurologic Cranial nerves II through XII intact. No focal deficits. - Musculoskeletal Generalized weakness. Moves all 4 extremities with equal strength bilateral. - Psychiatric no oriented to time, oriented to person, oriented to place, speech is normal, no memory intact Results - Labs 03/30/21 07:26 03/30/21 07:26 Abnormal Lab Results - Last 24 Hours (Table) 03/30/21 03/30/21 Range/Units 07:26 07:26 RBC 3.84 L (4.30-5.90) m/uL Hgb 11.2 L (13.0-17.5) gm/dL Hct 34.5 L (39.0-53.0) % RDW 17.1 H (11.5-15.5) % Plt Count 144 L D (150-450) k/uL Lymphocytes # 0.4 L (1.0-4.8) k/uL ESR 58 H (0-15) mm/hr Sodium 131 L (137-145) mmol/L BUN 27 H (9-20) mg/dL Creatinine 1.41 H (0.66-1.25) mg/dL Glucose 103 H (74-99) mg/dL Calcium 7.3 L (8.4-10.2) mg/dL C-Reactive Protein 13.9 H (<1.0) mg/dL Microbiology - Last 24 Hours (Table) 03/27/21 08:06 Blood Culture - Preliminary Blood No Growth after 72 hours 03/26/21 07:56 Blood Culture Gram Stain - Final Blood Blood Culture - Final Enterococcus faecalis 03/24/21 07:36 Blood Culture Gram Stain - Final Blood Blood Culture - Final Enterococcus faecalis 03/23/21 08:20 Blood Culture - Final Blood No Growth after 144 hours Diabetes panel 03/30/21 Range/Units 07:26 Sodium 131 L (137-145) mmol/L Potassium 4.1 (3.5-5.1) mmol/L Chloride 100 (98-107) mmol/L Carbon Dioxide 25 (22-30) mmol/L BUN 27 H (9-20) mg/dL Creatinine 1.41 H (0.66-1.25) mg/dL Glucose 103 H (74-99) mg/dL Calcium 7.3 L (8.4-10.2) mg/dL Calcium panel 03/30/21 Range/Units 07:26 Calcium 7.3 L (8.4-10.2) mg/dL Pituitary panel 03/30/21 Range/Units 07:26 Sodium 131 L (137-145) mmol/L Potassium 4.1 (3.5-5.1) mmol/L Chloride 100 (98-107) mmol/L Carbon Dioxide 25 (22-30) mmol/L BUN 27 H (9-20) mg/dL Creatinine 1.41 H (0.66-1.25) mg/dL Glucose 103 H (74-99) mg/dL Calcium 7.3 L (8.4-10.2) mg/dL Adrenal panel 03/30/21 Range/Units 07:26 Sodium 131 L (137-145) mmol/L Potassium 4.1 (3.5-5.1) mmol/L Chloride 100 (98-107) mmol/L Carbon Dioxide 25 (22-30) mmol/L BUN 27 H (9-20) mg/dL Creatinine 1.41 H (0.66-1.25) mg/dL Glucose 103 H (74-99) mg/dL Calcium 7.3 L (8.4-10.2) mg/dL - Imaging Chest x-ray: report reviewed, image reviewed CT scan - chest: report reviewed, image reviewed EKG: image reviewed Additional studies: Transthoracic 2-D echocardiogram results reviewed. Assessment and Plan Assessment: 1. Sepsis, with positive blood culture showing Enterococcus faecalis bacteremia 2. Acute on chronic congestive heart failure, with an ejection fraction of 55- 60% 3. Chronic kidney disease stage III 4. Bilateral hydronephrosis 5. History of hypertension 6. History of hyperlipidemia 7. Chronic atrial fibrillation, status post modified Frederick maze procedure in 2017 and is on eiliquis for anticoagulation on an outpatient 8. History of aortic valve insufficiency, status post aortic valve replacement in September 2016 with a bioprosthetic aortic valve 9. History of mitral valve regurgitation, status post mitral valve repair in September 2016 10. History of sternal exploration and sternal debridement and closure with bilateral pectoralis major myocutaneous advancement flaps in September 2016 11. History of dementia 12. History of depression 13. History of DVT to his right lower extremity 14. History of thyroid cancer 15. Oxygen dependent on home, on 2 L nasal cannula 16. Remote history of nicotine dependence, quit smoking over 40 years ago Plan: The patient was seen and examined at his bedside on the cardiac stepdown unit. His and son are present at his bedside. His chart and diagnostics were reviewed. The patient was also seen and examined by Dr. Mor Lebron from cardiothoracic surgery. At this time continue with conservative treatment as the patient would be at very high risk for redo cardiac surgery. Continue with antibiotics, managed by infectious disease. Would recommend getting a transesophageal echocardiogram if the patient can tolerate the procedure. Medical management other comorbidities per primary care service and other consultants. More recommendations to follow based on patient's clinical course. Thank you Dr. Montoya for this consult and we look forward to working with you in the care of this patient. Time with Patient: Greater than 30 <Mor Lebron - Last Filed: 03/31/21 08:21> Surgical - Exam Vital Signs Temp Pulse Resp 97.7 F 51 L 20 03/21/21 12:22 03/21/21 12:22 03/21/21 12:22 Results - Labs 03/30/21 07:26 03/30/21 07:26 Abnormal Lab Results - Last 24 Hours (Table) 03/30/21 03/30/21 Range/Units 07:26 07:26 RBC 3.84 L (4.30-5.90) m/uL Hgb 11.2 L (13.0-17.5) gm/dL Hct 34.5 L (39.0-53.0) % RDW 17.1 H (11.5-15.5) % Plt Count 144 L D (150-450) k/uL Lymphocytes # 0.4 L (1.0-4.8) k/uL ESR 58 H (0-15) mm/hr Sodium 131 L (137-145) mmol/L BUN 27 H (9-20) mg/dL Creatinine 1.41 H (0.66-1.25) mg/dL Glucose 103 H (74-99) mg/dL Calcium 7.3 L (8.4-10.2) mg/dL C-Reactive Protein 13.9 H (<1.0) mg/dL Microbiology - Last 24 Hours (Table) 03/27/21 08:06 Blood Culture - Preliminary Blood No Growth after 72 hours Diabetes panel 03/30/21 Range/Units 07:26 Sodium 131 L (137-145) mmol/L Potassium 4.1 (3.5-5.1) mmol/L Chloride 100 (98-107) mmol/L Carbon Dioxide 25 (22-30) mmol/L BUN 27 H (9-20) mg/dL Creatinine 1.41 H (0.66-1.25) mg/dL Glucose 103 H (74-99) mg/dL Calcium 7.3 L (8.4-10.2) mg/dL Calcium panel 03/30/21 Range/Units 07:26 Calcium 7.3 L (8.4-10.2) mg/dL Pituitary panel 03/30/21 Range/Units 07:26 Sodium 131 L (137-145) mmol/L Potassium 4.1 (3.5-5.1) mmol/L Chloride 100 (98-107) mmol/L Carbon Dioxide 25 (22-30) mmol/L BUN 27 H (9-20) mg/dL Creatinine 1.41 H (0.66-1.25) mg/dL Glucose 103 H (74-99) mg/dL Calcium 7.3 L (8.4-10.2) mg/dL Adrenal panel 03/30/21 Range/Units 07:26 Sodium 131 L (137-145) mmol/L Potassium 4.1 (3.5-5.1) mmol/L Chloride 100 (98-107) mmol/L Carbon Dioxide 25 (22-30) mmol/L BUN 27 H (9-20) mg/dL Creatinine 1.41 H (0.66-1.25) mg/dL Glucose 103 H (74-99) mg/dL Calcium 7.3 L (8.4-10.2) mg/dL Assessment and Plan Assessment: Strep Faecalis bacteriemia... ? Endocarditis . No JAYDE. However last blood culture negative. Conservative management assuming endocarditis per ID. Non- Surgical candidate . Mor Lockett MD
[2021-03-30] MEDS: ATORVASTATIN 10 MG TAB PO SCH (21:05)
[2021-03-31] MEDS: LEVOTHYROXINE 100 MCG TAB PO SCH (06:42)
[2021-03-31] MEDS: MIDODRINE 5 MG TAB PO SCH ×3 (06:42→17:30)
[2021-03-31] MEDS: LEVOTHYROXINE 75 MCG TAB PO SCH (06:42)
[2021-03-31] MEDS: IPRATROPIUM-ALBUTEROL 3 ML NEB INHALATION SCH ×4 (07:47→19:22)
[2021-03-31] MEDS: FORMOTEROL FUMARATE 20 MCG/2 ML NEBU INHALATION SCH ×2 (07:47→19:22)
[2021-03-31 08:30] LABS: Anisocytosis Slight; Basophils # (A) 0.1 k/uL (0-0.2); Basophils % (A) 1 %; Eosinophils # (A) 0.1 k/uL (0-0.7); Eosinophils % (A) 1 %; HCT 28.9 % (39.0-53.0); Lymphocytes # (A) 0.4 k/uL (1.0-4.8); Lymphocytes % (A) 5 %; MCH 29.7 pg (25.0-35.0); MCHC 33.1 g/dL (31.0-37.0); MCV 89.8 fL (80.0-100.0); Mean Platelet Volume 8.8; Monocytes # (A) 0.2 k/uL (0-1.0); Monocytes % (A) 3 %; Neutrophils # (A) 6.3 k/uL (1.3-7.7); Neutrophils % (A) 88 %; Platelet Count 143 k/uL (150-450); RBC 3.22 m/uL (4.30-5.90); WBC 7.1 k/uL (3.8-10.6)
[2021-03-31] MEDS: METOPROLOL TARTRATE 25 MG TAB PO SCH (08:34)
[2021-03-31] MEDS: AMIODARONE 100 MG TAB PO SCH (08:34)
[2021-03-31] MEDS: APIXABAN 2.5 MG TABLET PO SCH ×2 (08:34→20:28)
[2021-03-31] MEDS: TAMSULOSIN 0.4 MG CAP.ER.24H PO SCH (08:34)
[2021-03-31] MEDS: FUROSEMIDE 10 MG/ML 4 ML VIAL IV SCH ×2 (08:34→22:41)
[2021-03-31] MEDS: AMPICILLIN 2,000 MG in SODIUM CHLORIDE 0.9% 100 ML IVPB SCH ×2 (08:35→20:27)
[2021-03-31 08:39] LABS: HGB 9.6 gm/dL (13.0-17.5)
[2021-03-31 08:51] LABS: Potassium 3.6 mmol/L (3.5-5.1)
--- NOTE | 2021-03-31 09:45 | P.PN ---
Subjective Progress Note Date: 03/31/21 Principal diagnosis: Sepsis, with positive blood culture showing Enterococcus faecalis bacteremia, acute on chronic congestive heart failure. Previous medical history of aortic stenosis and mitral regurgitation status post bioprosthetic aortic valve replacement and mitral valve repair in September 2016, sternal exploration and debridement and closure with bilateral pectoralis major myocutaneous advancement flaps in September 2016, chronic atrial fibrillation post modified Frederick maze on Eliquis for anticoagulation, chronic kidney disease stage III, hypertension, hyperlipidemia, DVT to the right lower extremity, thyroid cancer, previous tobacco dependence, current home oxygen dependence, bilateral hydronephrosis dementia, depression The patient was seen and examined this morning on the cardiac stepdown unit. He is in no acute distress and denies any chest pain or shortness of breath, however he is confused and oriented to person only. He is unable to confirm the year and thinks he is in a temple. Currently in controlled atrial fibrillation and hemodynamically stable. Remains on 3 L nasal cannula with good oxygen saturation. Blood culture from March 26 positive for enterococcus faecalis, blood culture from March 27 negative growth to date. Infectious disease following and there is concern for endocarditis, recommend JAYDE, however patient is not felt to be stable at this time for JAYDE. Remains on IV ampicillin and ceftriaxone per infectious disease. The patient was seen and examined by Dr. Lebron who felt the patient is not a surgical candidate, recommends conservative management. Objective - Vital Signs Vital signs: Vital Signs Temp 97.7 F 03/31/21 04:00 Pulse 96 03/31/21 08:03 Resp 20 03/31/21 04:00 BP 94/67 03/31/21 04:00 Pulse Ox 97 03/31/21 04:00 Intake & Output 03/30/21 03/31/21 03/31/21 18:59 06:59 18:59 Intake Total 390 Output Total 650 970 Balance -260 -970 Intake: IV 150 Ampicillin 2,000 mg In 100 Sodium Chloride 0.9% 100 ml @ 200 mls/hr IVPB Q12H STEVAN Rx#:[id number] cefTRIAXone 2 gm In 50 Sodium Chloride 0.9% 50 ml @ 100 mls/hr IVPB Q12HR STEVAN Rx#:[id number] Oral 240 Output: Urine 650 970 Straight 320 Other: Voiding Method Indwelling Catheter Indwelling Catheter - Exam CONSTITUTIONAL: Appears comfortable, cooperative, no acute distress RESPIRATORY: Lungs sounds diminished bilaterally. Respirations even, nonlabored. Currently on 3 L nasal cannula with oxygen saturation 97%. CARDIOVASCULAR: S1, S2 present, loud systolic murmur present. Irregular rate and rhythm, controlled atrial fibrillation on telemetry. Palpable peripheral pulses bilaterally. Bilateral lower extremity edema present. GASTROINTESTINAL: Abdomen soft, nontender, nondistended. Active bowel sounds present 4 quadrants. Tolerating diet. Positive bowel movement. GENITOURINARY: Duong present draining clear, yellow urine. Output 1620 mL in the last 24 hours INTEGUMENTARY: Skin is warm and dry. Anterior chest incision well approximated. NEUROLOGIC: Cranial nerves II through XII intact MUSKULOSKELETAL: Able to move all extremities, strength equal bilaterally but very weak PSYCHIATRIC: Alert and oriented to person only, cooperative - Allied health notes Allied health notes reviewed: nursing - Labs CBC & Chem 7: 03/31/21 07:28 03/31/21 07:28 Labs: Abnormal Lab Results - Last 24 Hours (Table) 03/30/21 03/31/21 03/31/21 Range/Units 07:26 07:28 07:28 RBC 3.22 L (4.30-5.90) m/uL Hgb 9.6 L D (13.0-17.5) gm/dL Hct 28.9 L (39.0-53.0) % RDW 17.0 H (11.5-15.5) % Plt Count 143 L (150-450) k/uL Lymphocytes # 0.4 L (1.0-4.8) k/uL ESR 58 H (0-15) mm/hr Sodium 134 L (137-145) mmol/L BUN 29 H (9-20) mg/dL Creatinine 1.62 H (0.66-1.25) mg/dL Calcium 7.0 L (8.4-10.2) mg/dL Microbiology - Last 24 Hours (Table) 03/27/21 08:06 Blood Culture - Preliminary Blood No Growth after 72 hours Assessment and Plan Assessment: 1. Sepsis, with positive blood culture showing Enterococcus faecalis bacteremia 2. Acute on chronic congestive heart failure 3. History of aortic stenosis and mitral regurgitation status post bioprosthetic aortic valve replacement and mitral valve repair in September 2016 4. Sternal exploration and debridement and closure with bilateral pectoralis major myocutaneous advancement flaps in September 2016 5. Chronic atrial fibrillation post modified Frederick maze on Eliquis for anti coagulation 6. Chronic kidney disease stage III 7. History of hypertension 8. History of hyperlipidemia 9. History of DVT to the right lower extremity 10. History of thyroid cancer 11. Previous tobacco dependence 12. Current home oxygen dependence 13. Bilateral hydronephrosis 14. Dementia 15. Depression Plan: 1. Nonsurgical candidate. Recommend conservative management per infectious disease 2. Wean O2 as tolerated, bronchodilators per order 3. Management of heart failure, atrial fibrillation per cardiology 4. Avoid nephrotoxins, management per nephrology 5. Increase activity as tolerated 6. Medical management of other comorbidities per primary care service 7. Will continue to follow along with you while hospitalized. No surgical intervention planned Time with Patient: Greater than 30
--- NOTE | 2021-03-31 11:32 | PN ---
PROGRESS NOTE Patient is seen for followup for acute kidney injury. Patient's renal function is stable. Serum creatinine has been staying at about 1.4 mg/dL. On examination today, patient is comfortable. Blood pressure 86/58, heart rate 82 per minute. He is afebrile. EXAMINATION OF THE HEART: S1 and S2. EXAMINATION OF LUNGS: Decreased breath sounds at the bases. Abdomen is soft, non-tender. SOFTBALL COACH EXAM: Grossly intact. Labs show sodium 131, potassium 4.1, chloride 100, BUN 27, creatinine 1.41. ASSESSMENT: 1. Acute kidney injury secondary to acute tubular necrosis from hypotension, underlying infection, currently improved, remaining stable. 2. Chronic kidney disease, stage IIIA, with baseline creatinine 1.1 to 1.3 secondary to nephrosclerosis. 3. Bilateral hydronephrosis, being followed by Urology, maintained on Flomax and currently with an indwelling Duong catheter. 4. Enterococcus bacteremia and pneumonia, maintained on antibiotics, being followed by ID. 5. Acute on chronic diastolic congestive heart failure with moderate pulmonary hypertension. 6. Lower extremity edema, improving with diuresis. 7. Metabolic acidosis associated with acute kidney injury and IV fluids. PLAN: Continue current dose of diuretics. Avoid hypotension. Continue antibiotics as well. Repeat labs in a.m. MMODL / IJN: [id number] /
--- NOTE | 2021-03-31 11:35 | PN ---
PROGRESS NOTE DATE OF SERVICE: 03/30/2021 REASON FOR FOLLOWUP: Enterococcus faecalis bacteremia concerning for endocarditis. INTERVAL HISTORY: The patient was seen on rounds early this afternoon. The patient has been afebrile. He is breathing comfortably. The patient denies having any chest pain or any worsening cough. No abdominal pain or diarrhea. PHYSICAL EXAMINATION: Blood pressure 100/65, pulse of 71, temperature 98.5. He is 96% on 3 L nasal cannula. General description is an elderly male lying in bed in no distress. RESPIRATORY SYSTEM: Unlabored breathing. Decreased intensity of breath sounds. No wheeze. HEART: S1, S2. Regular rate and rhythm. ABDOMEN: Soft. No tenderness. EXTREMITIES: edema of the feet. LABS: Hemoglobin 11.1, white count 8.5, BUN of 27, creatinine 1.41. CRP is 13.9. DIAGNOSTIC IMPRESSION AND PLAN: Patient with enterococcus faecalis bacteremia concerning for endocarditis. Patient has been evaluated by CT Surgery, who is recommending a JAYDE. The patient is currently covered with ampicillin and Rocephin, as gentamicin could not be used because of his kidney function. and son were at the bedside. They had multiple questions. Those were answered in layman's terms. Total amount of time spent in review of the chart and with family was more than 25 minutes. MMPAULL / REGGIEN: [id number] /
--- NOTE | 2021-03-31 11:38 | P.PN ---
Subjective 68-year-old male admitted because of bleeding from the scrotum patient is found to be bacteremic later possible source is probably skin breakdown at the scrotal area. Patient enterococcal bacteremia bacteremia and patient is on Unasyn for that. Patient does have history of atrial fibrillation. Patient probably has a chronic diastolic dysfunction patient appears to be volume overloaded with some pulmonary edema bibasilar crackles on lung exam patient will be switched IV Lasix IV fluids will be discontinued. Patient blood pressure is low normal because of which I will hold off on lisinopril. Patient had normal ejection fraction the past patient had a VQ scan today which showed normal ejection fraction. 03/27/2021 Patient can use to have persistent bacteremia although kidney function continued to improve blood pressure remains on the lower side. Patient has enterococcus patient does have a murmur in the attic area as well will discuss with the infectious disease regarding the need for transesophageal echocardiogram to evaluate for hepatitis considering persistent bacteremia. Leukocytosis is improving creatinine can use to improve. 03/31/2021 Patient was pretty status is bit worse compared to yesterday patient may have infiltrate on the chest x-ray patient is already receiving Lasix which we'll continue and closely monitor nephrology and cardiology are following the patient. Patient the is probably not a good candidate for transesophageal echocardiogram because of his overall clinical condition and comorbidities. [facility] the patient because of pectoral muscle flap patient is not a candidate for thoracotomy considering his multiple medical problems patient is not a candidate for cardiac thoracic surgery. Patient bacteremia appears to have resolved probably should just continue antibiotics to treat endocarditis. Constitutional: Denied any fatigue denied any fever. Cardio vascular: denied any chest pain, palpitations Gastrointestinal denied any nausea vomiting Pulmonary: Denied any shortness of breath cough Neurologic denied any new focal deficits All inpatient medications were reviewed and appropriate changes in these medications as dictated in the interval history and assessment and plan. PHYSICAL EXAMINATION: GENERAL: The patient is alert and oriented x3, not in any acute distress. Well developed, well nourished. HEENT: Pupils are round and equally reacting to light. EOMI. No scleral icterus. No conjunctival pallor. Normocephalic, atraumatic. No pharyngeal erythema. No thyromegaly. CARDIOVASCULAR: S1 and S2 present. No murmurs, rubs, or gallops. Tachycardic irregularly irregular PULMONARY: Good air entry into bilateral lung elam bibasilar crackles patient is on 2 L of oxygen which he uses at home ABDOMEN: Soft, nontender, nondistended, normoactive bowel sounds. No palpable organomegaly. MUSCULOSKELETAL: No joint swelling or deformity. EXTREMITIES: No cyanosis, clubbing, does have pedal edema NEUROLOGICAL: Gross neurological examination did not reveal any focal deficits. SKIN: No rashes. Assessment and plan Sepsis and bacteremia with Enterococcus faecalis, possible bacterial endocarditis possible source being scrotal trauma. -Congestive heart failure possible chronic diastolic dysfunction with acute exacerbation, EF is 55-60%, continued Lasix patient probably is in acute exacerbation -Moderate pulmonary hypertension -Acute renal failure: Related to acute tubular necrosis which is secondary to hypotension, mild worsening compared to yesterday -Chronic kidney disease stage III possible hypertensive sclerosis -Anemia, normocytic, most likely secondary to chronic kidney disease -Bilateral hydronephrosis possibly due to urological evaluated the patient in the recommending a full he catheter which will be continued -Hypervolemic hyponatremia improving with IV Lasix -Hyperlipidemia -History of hypertension Hypotension related to sepsis and bacteremia -Chronic Atrial fibrillation with RVR, rate is currently controlled -History of dementia possibly vascular -Depression -Ruled out pulmonary embolism with a VQ scan which showed low probability for PE DVT prophylaxis: subcu heparin, eliquis O/H still DO NOT RESUSCITATE Objective - Vital Signs Vital signs: Vital Signs Temp 98 F 03/31/21 08:00 Pulse 96 03/31/21 08:03 Resp 24 03/31/21 08:00 BP 93/58 03/31/21 08:00 Pulse Ox 96 03/31/21 08:00 Intake & Output 03/30/21 03/31/21 03/31/21 18:59 06:59 18:59 Intake Total 390 Output Total 650 970 Balance -260 -970 Intake: IV 150 Ampicillin 2,000 mg In 100 Sodium Chloride 0.9% 100 ml @ 200 mls/hr IVPB Q12H STEVAN Rx#:[id number] cefTRIAXone 2 gm In 50 Sodium Chloride 0.9% 50 ml @ 100 mls/hr IVPB Q12HR [facility]EVAN Rx#:[id number] Oral 240 Output: Urine 650 970 Straight 320 Other: Voiding Method Indwelling Catheter Indwelling Catheter Indwelling Catheter - Labs CBC & Chem 7: 03/31/21 07:28 03/31/21 07:28 Labs: Abnormal Lab Results - Last 24 Hours (Table) 03/31/21 03/31/21 Range/Units 07:28 07:28 RBC 3.22 L (4.30-5.90) m/uL Hgb 9.6 L D (13.0-17.5) gm/dL Hct 28.9 L (39.0-53.0) % RDW 17.0 H (11.5-15.5) % Plt Count 143 L (150-450) k/uL Lymphocytes # 0.4 L (1.0-4.8) k/uL Sodium 134 L (137-145) mmol/L BUN 29 H (9-20) mg/dL Creatinine 1.62 H (0.66-1.25) mg/dL Calcium 7.0 L (8.4-10.2) mg/dL Microbiology - Last 24 Hours (Table) 03/27/21 08:06 Blood Culture - Preliminary Blood No Growth after 96 hours 03/30/21 07:26 Blood Culture - Preliminary Blood No Growth after 24 hours
--- NOTE | 2021-03-31 12:07 | XR ---
EXAMINATION TYPE: XR chest 1V DATE OF EXAM: 03/31/2021 COMPARISON: 03/24/2021 INDICATION: CHF TECHNIQUE: Single frontal view of the chest is obtained. FINDINGS: The heart size is normal. The pulmonary vasculature is slightly prominent. Diffuse increased lung markings are present. This is nonspecific. Correlate for pulmonary edema. IMPRESSION: 1. Slight diffuse increase lung markings with prominent pulmonary vascular markings. Correlate for ea rly congestive heart failure.
[2021-03-31 14:23] VITALS: BMI 33.5
--- NOTE | 2021-03-31 14:36 | P.PN ---
Subjective Progress Note Date: 03/31/21 HISTORY OF PRESENT ILLNESS: This is a 76-year-old male patient with past medical history of mitral valve repair, aortic valve replacement 2016, chronic atrial fibrillation, hyperten erick, hyperlipidemia, paroxysmal atrial fibrillation, dementia and sternal infection s/p open heart surgery that required surgical intervention. Patient is unable to provide information and information is obtained from the patient's at bedside. Patient apparently developed bleeding from the scrotal area which his states was probably from him scratching. Due to him being on eliquis, there was significant bleeding and patient was taken to the emergency center for further evaluation. He was found to be quite hypotensive at 79/64 heart rate was in the 50s. He was given IV fluid bolus of 500 with some improvement of his blood pressure. EKG was atrial fibrillation at rate of 59 bpm. WBC 13.4, hemoglobin 11.5, platelet count 76. Sodium 134, potassium 3.8, BUN 66 and creatinine 2.29. D-dimer 4.05. Troponin 0.077. ProBNP 11,400. Coronavirus PCR not detected. Urinalysis positive for blood. Chest x-ray reveals mild to moderate heart failure. Limited echocardiogram obtained reveals preserved LV systolic function with ejection fraction 55-60% with a normally functioning bioprosthetic aortic valve with a mean gradient of 10 mmHg, mild MR with a mean gradient of 3 mmHg and mild TR. Infectious disease is following regarding ongoing bacteremia. 03/30/2021 Pt seen and examined sitting up in recliner chair in no acute distress. He denies chest pain, shortness of breath, dizziness or palpitations. Blood pressure 86/58 heart rate 82 afebrile and maintaining oxygen saturation on 3 L nasal cannula. He continues to be in atrial fibrillation heart rates in the 70s to 90s. Laboratory data reviewed, sodium 131, potassium 4.1, BUN 27, serum creatinine 1.4, WBC 8.5, hemoglobin 11.2, platelets 144. 03/31/2021 Patient examined this morning at the bedside. Patient is confused at the time of examination. He denies chest pain or pressure. Denies shortness of breath. He has been evaluated by cardiothoracic surgery with no plans for surgical intervention PHYSICAL EXAM: VITAL SIGNS: Reviewed. GENERAL: Well-developed in no acute distress. NECK: Supple. No JVD or thyromegaly LUNGS: Respirations even and unlabored. Lungs diminished to auscultation bilaterally. HEART: Regular rate and rhythm. S1 and S2 heard. Systolic murmur noted. EXTREMITIES: Normal range of motion. No clubbing or cyanosis. Peripheral pulses intact. 2+ lower extremity edema ASSESSMENT: Scrotal bleeding, stable Paroxysmal atrial fibrillation on eliquis at home, currently on hold for scrotal wound bleeding. Episodes of RVR. Bacteremia, ongoing Status post mitral valve repair and aortic valve replacement History of sternal infection s/p open heart surgery Blood culture positive for Enterococcus faecalis Leukocytosis Thrombocytopenia Acute on chronic kidney disease Hypertension Hyperlipidemia Dementia PLAN: Continue current cardiac medications Continue IV lasix. Further management of lasix per internal medicine Patient not a candidate for JAYDE at this time Continue IV antibiotics per infectious disease We will sign off. Please reconsult if needed Nurse practitioner note has been reviewed by physician. Signing provider agrees with the documented findings, assessment, and plan of care. Objective - Vital Signs Vital signs: Vital Signs Temp 98.1 F 03/31/21 12:00 Pulse 66 03/31/21 12:00 Resp 20 03/31/21 12:00 BP 98/56 03/31/21 12:00 Pulse Ox 98 03/31/21 12:00 Intake & Output 03/30/21 03/31/21 03/31/21 18:59 06:59 18:59 Intake Total 390 Output Total 650 970 Balance -260 -970 Weight 100 kg Intake: IV 150 Ampicillin 2,000 mg In 100 Sodium Chloride 0.9% 100 ml @ 200 mls/hr IVPB Q12H [facility] Rx#:[id number] cefTRIAXone 2 gm In 50 Sodium Chloride 0.9% 50 ml @ 100 mls/hr IVPB Q12HR [facility] Rx#:[id number] Oral 240 Output: Urine 650 970 Straight 320 Other: Voiding Method Indwelling Catheter Indwelling Catheter Indwelling Catheter - Labs CBC & Chem 7: 03/31/21 07:28 03/31/21 07:28 Labs: Abnormal Lab Results - Last 24 Hours (Table) 03/31/21 03/31/21 Range/Units 07:28 07:28 RBC 3.22 L (4.30-5.90) m/uL Hgb 9.6 L D (13.0-17.5) gm/dL Hct 28.9 L (39.0-53.0) % RDW 17.0 H (11.5-15.5) % Plt Count 143 L (150-450) k/uL Lymphocytes # 0.4 L (1.0-4.8) k/uL Sodium 134 L (137-145) mmol/L BUN 29 H (9-20) mg/dL Creatinine 1.62 H (0.66-1.25) mg/dL Calcium 7.0 L (8.4-10.2) mg/dL Microbiology - Last 24 Hours (Table) 03/27/21 08:06 Blood Culture - Preliminary Blood No Growth after 96 hours 03/30/21 07:26 Blood Culture - Preliminary Blood No Growth after 24 hours
[2021-03-31] MEDS: ATORVASTATIN 10 MG TAB PO SCH (20:27)
[2021-04-01] MEDS: METOPROLOL TARTRATE 25 MG TAB PO SCH ×3 (00:41→21:32)
--- NOTE | 2021-04-01 05:45 | PN ---
PROGRESS NOTE DATE OF SERVICE: 03/31/2021 REASON FOR FOLLOWUP: Enterococcus faecalis bacteremia concerning for endocarditis. INTERVAL HISTORY: The patient is afebrile. The patient is breathing comfortably. Patient denies having any chest pain, shortness of breath or cough. No nausea, no vomiting. No abdominal pain or diarrhea. PHYSICAL EXAMINATION: Blood pressure is 105/61, pulse of 80, temperature 98.1. He is 100% on 3 L nasal cannula. General description is an elderly male lying in bed in no distress. Respiratory system: Unlabored breathing, decreased breath sounds in the base. No wheeze. Heart S1, S2. Regular rate and rhythm. Abdomen soft, no tenderness. LABS: Hemoglobin 9.1, white count 7.1, creatinine 1.62. Blood cultures repeat remains to be negative. DIAGNOSTIC IMPRESSION AND PLAN: Patient with enterococcus faecalis bacteremia, high clinical suspicious for endocarditis. Waiting for the JAYDE. Patient to continue with Rocephin and ampicillin and monitor clinical course closely. MMODL / IJN: [id number] /
[2021-04-01] MEDS: MIDODRINE 5 MG TAB PO SCH ×3 (06:22→19:29)
[2021-04-01] MEDS: LEVOTHYROXINE 75 MCG TAB PO SCH (06:22)
[2021-04-01] MEDS: LEVOTHYROXINE 100 MCG TAB PO SCH (06:22)
[2021-04-01] MEDS: IPRATROPIUM-ALBUTEROL 3 ML NEB INHALATION SCH ×4 (07:13→20:42)
[2021-04-01] MEDS: FORMOTEROL FUMARATE 20 MCG/2 ML NEBU INHALATION SCH ×2 (07:13→20:42)
[2021-04-01] MEDS: AMIODARONE 100 MG TAB PO SCH (08:11)
[2021-04-01] MEDS: FUROSEMIDE 10 MG/ML 4 ML VIAL IV SCH ×2 (08:12→21:31)
[2021-04-01] MEDS: APIXABAN 2.5 MG TABLET PO SCH ×2 (08:12→21:32)
[2021-04-01] MEDS: AMPICILLIN 2,000 MG in SODIUM CHLORIDE 0.9% 100 ML IVPB SCH ×2 (08:12→21:31)
[2021-04-01] MEDS: TAMSULOSIN 0.4 MG CAP.ER.24H PO SCH (08:12)
--- NOTE | 2021-04-01 13:46 | P.PN ---
Subjective Progress Note Date: 04/01/21 Principal diagnosis: Sepsis, with positive blood culture showing Enterococcus faecalis bacteremia, acute on chronic congestive heart failure. Previous medical history of aortic stenosis and mitral regurgitation status post bioprosthetic aortic valve replacement and mitral valve repair in September 2016, sternal exploration and debridement and closure with bilateral pectoralis major myocutaneous advancement flaps in September 2016, chronic atrial fibrillation post modified Frederick maze on Eliquis for anticoagulation, chronic kidney disease stage III, hypertension, hyperlipidemia, DVT to the right lower extremity, thyroid cancer, previous tobacco dependence, current home oxygen dependence, bilateral hydronephrosis dementia, depression The patient was seen and examined today with Dr. Riggs on the cardiac stepdown unit. He is in no acute distress and denies any chest pain or shortness of breath. Currently in controlled atrial fibrillation and hemodynamically stable. Remains on 3 L nasal cannula with good oxygen saturation. Blood culture from March 26 positive for enterococcus faecalis, blood culture from March 27 and March 30 negative growth to date. Remains on IV ampicillin and ceftriaxone per infectious disease. Objective - Vital Signs Vital signs: Vital Signs Temp 97.6 F 04/01/21 08:00 Pulse 70 04/01/21 13:32 Resp 20 04/01/21 13:32 BP 87/55 04/01/21 11:14 Pulse Ox 98 04/01/21 11:14 Intake & Output 03/31/21 04/01/21 04/01/21 18:59 06:59 18:59 Intake Total 594 237 Output Total 700 480 502 Balance -106 -480 -265 Weight 100 kg 96.5 kg Intake: IV 150 Ampicillin 2,000 mg In 100 Sodium Chloride 0.9% 100 ml @ 200 mls/hr IVPB Q12H [facility] Rx#:[id number] cefTRIAXone 2 gm In 50 Sodium Chloride 0.9% 50 ml @ 100 mls/hr IVPB Q12HR [facility] Rx#:[id number] Oral 444 237 Output: Urine 700 480 500 Stool 2 Other: Voiding Method Indwelling Catheter Indwelling Catheter Indwelling Catheter - Exam CONSTITUTIONAL: Appears comfortable, cooperative, no acute distress RESPIRATORY: Lungs sounds diminished bilaterally. Respirations even, nonlabored. Currently on 3 L nasal cannula with oxygen saturation 98%. CARDIOVASCULAR: S1, S2 present, loud systolic murmur present. Irregular rate and rhythm, controlled atrial fibrillation on telemetry. Palpable peripheral pulses bilaterally. Bilateral lower extremity edema present. GASTROINTESTINAL: Abdomen soft, nontender, nondistended. Active bowel sounds present 4 quadrants. Tolerating diet. Positive bowel movement. GENITOURINARY: Duong present draining clear, yellow urine. Output 1180 mL in the last 24 hours INTEGUMENTARY: Skin is warm and dry. Anterior chest incision well approximated. NEUROLOGIC: Cranial nerves II through XII intact MUSKULOSKELETAL: Able to move all extremities, strength equal bilaterally but very weak PSYCHIATRIC: Alert and oriented to person only, cooperative - Allied health notes Allied health notes reviewed: nursing - Labs CBC & Chem 7: 03/31/21 07:28 03/31/21 07:28 Labs: Microbiology - Last 24 Hours (Table) 03/27/21 08:06 Blood Culture - Preliminary Blood No Growth after 120 hours 03/30/21 07:26 Blood Culture - Preliminary Blood No Growth after 48 hours Assessment and Plan Assessment: 1. Sepsis, with positive blood culture showing Enterococcus faecalis bacteremia 2. Acute on chronic congestive heart failure 3. History of aortic stenosis and mitral regurgitation status post bioprosthetic aortic valve replacement and mitral valve repair in September 2016 4. Sternal exploration and debridement and closure with bilateral pectoralis major myocutaneous advancement flaps in September 2016 5. Chronic atrial fibrillation post modified Frederick maze on Eliquis for anticoagulation 6. Chronic kidney disease stage III 7. History of hypertension 8. History of hyperlipidemia 9. History of DVT to the right lower extremity 10. History of thyroid cancer 11. Previous tobacco dependence 12. Current home oxygen dependence 13. Bilateral hydronephrosis 14. Dementia 15. Depression Plan: 1. Nonsurgical candidate. Recommend conservative management with IV antibiotics per infectious disease 2. Wean O2 as tolerated, bronchodilators per order 3. Increase activity as tolerated, physical and occupational therapy following 4. Medical management of other comorbidities per primary care service 5. Patient may be discharged from our standpoint when okay with other services. May need to be discharged to rehab facility for ongoing physical therapy. Consider palliative care. 6. Will sign off. Please call us with any further questions Time with Patient: Greater than 30
--- NOTE | 2021-04-01 14:25 | PN ---
PROGRESS NOTE Patient is seen for followup for acute kidney injury. The patient is currently being diuresed for volume overload. He is maintained on IV Lasix. Serum creatinine was slightly higher yesterday at 1.6 from baseline of about 1.4. Overall, he denies any significant complaints. PHYSICAL EXAMINATION: Blood pressure remains on the lower side with systolic ranging from 87-100 mmHg. Heart rate 74 per minute. He is afebrile. Examination of the heart S1, S2. Examination of lungs, decreased breath sounds at the bases. Minimal basal crackles heard. Abdomen: Soft, distended, nontender. Exam of lower extremities shows 2+ edema bilaterally. PEANUT SORTER exam grossly intact. LAB: From March 31 show serum creatinine 1.6, sodium 134, potassium 3.6. No labs available from today. ASSESSMENT: 1. Acute kidney injury cardiorenal and acute tubular necrosis. Currently being diuresed. Blood pressure remains low. Patient is maintained on midodrine. No nephrotoxic agents noted. I will continue with the IV Lasix since the patient is volume overloaded. 2. Enterococcus faecalis bacteremia with repeat cultures negative thus far from 03/27 and 03/30/2021, maintained on ceftriaxone being followed by ID. High suspicion for underlying endocarditis. Awaiting JAYDE. 3. Congestive heart failure with volume overload, currently being diuresed. 4. Bilateral hydronephrosis, maintained on Flomax, currently with indwelling Duong catheter, being followed by Urology. 5. Chronic kidney disease stage 3, baseline creatinine 1.1-1.3 secondary to nephrosclerosis. 6. Moderate pulmonary hypertension and acute on chronic diastolic congestive heart failure. 7. Metabolic acidosis currently improved. PLAN: Continue with IV Lasix. Check labs in a.m. Continue with midodrine. Continue antibiotics as well. MMODL / IJN: [id number] /
[2021-04-01] MEDS: QUEtiapine 25 MG TAB PO SCH (21:32)
[2021-04-01] MEDS: ATORVASTATIN 10 MG TAB PO SCH (21:32)
--- NOTE | 2021-04-01 22:35 | P.PN ---
Subjective Progress Note Date: 04/01/21 68-year-old male admitted because of bleeding from the scrotum patient is found to be bacteremic later possible source is probably skin breakdown at the scrotal area. Patient enterococcal bacteremia bacteremia and patient is on Unasyn for that. Patient does have history of atrial fibrillation. Patient probably has a chronic diastolic dysfunction patient appears to be volume overloaded with some pulmonary edema bibasilar crackles on lung exam patient will be switched IV Lasix IV fluids will be discontinued. Patient blood pressure is low normal because of which I will hold off on lisinopril. Patient had normal ejection fraction the past patient had a VQ scan today which showed normal ejection fr action. Patient has elevated creatinine of 1.84 patient was in acute renal failure and patient which improved. 03/24/2021 Patient is resting comfortably in the bed he denies any current pain. Patient does have some 3+ pitting edema, lungs are crackles in the bases and throughout the posterior lung elam. Patient repeat chest x-ray today that we demonstrated scattered infiltrates, x-rays reviewed and does appear to be fluid overload status. His BNP on admission was 11,400. Patient's hypotensive this morning at 79/50. Prior to that it was 85/56. Patient is 95% on 3 L nasal cannula. Cardiac meds are held this morning, pending reconsultation. Other vitals include a temp of 98.1, heart rate 68 A. fib. Labs today reveal a white count of 17.5, hemoglobin 11.2. Sodium is 137, potassium 3.7, BUN 50, creatinine 2.34. Patient's glucose is 113. CRP is 16.5. Blood cultures are currently pending repeat. 03/25/2021 Patient is evaluated today, still presenting with crackles throughout all lung elam. Patient had abdominal pelvis CT completed yesterday that showed some airspace infiltrate and atelectasis in both lung bases with pleural thickening that is not significantly different last exam. Cardio megaly. Mild bilateral hydronephrosis with dilated urinary bladder. Hydronephrosis is probably secondary to the urinary retention. Urinary bladder is increased compared to old exam. Hydronephrosis is new compared to old exam. Patient also had a chest CT which revealed bilateral lower lobe pneumonia and atelectasis, pleural effusions, pleural fluid improved compared to old exam. There is new bilateral hydronephrosis. Patient was ultimately retaining urine and had a Duong catheter placed at noon today. Creatinine today is 2.07, sodium 135, calcium 6.6. Urinalysis was obtained which showed moderate blood, rare bacteria. Negative for UTI. Patient had a nephrology consult today who recommends continue gentle IV hydration and a urology consult. 03/26/2021 Patient is sitting up at the chair at the time of my assessment. He states overall he is feeling better. He has an indwelling catheter that is dark fabian in color. His labs are reviewed include a WBC of 11.4, hemoglobin of 10, platelets of 67, sodium 132, BUN 40, creatinine 1.76. Albumin is low at 2.2. His pro-calcitonin was elevated at 1.03. Vital signs include temperature 97.7, heart rate 76, blood pressure 106/66, 93% on 2 L nasal cannula. Limited echo reveals a EF of 55-60%. Current changes from cardiology include discontinued and IV fluids, one-time dose of IV Lasix, decreasing Lopressor. A.m. cortisol level 21. was updated at the bedside yesterday who states that all of his providers are down in [place]. 03/27/2021 Patient can use to have persistent bacteremia although kidney function continued to improve blood pressure remains on the lower side. Patient has enterococcus patient does have a murmur in the attic area as well will discuss with the infectious disease regarding the need for transesophageal echocardiogram to evaluate for hepatitis considering persistent bacteremia. Leukocytosis is improving creatinine can use to improve. 03/28/2021 Patient is evaluated today sitting in the chair. His blood cultures remained positive with group D enterococcus. Blood culture drawn yesterday is still pending. Discussed case with infectious disease who is agreeing on the need for a JAYDE to evaluate for endocarditis. JAYDE has been ordered. Patient's blood pressure is in the lower side at 86/55. He has remained afebrile. White blood cell count has normalized. Hemoglobin is stable at 10.3, platelets are increasing and 92. Sodium is 132, BUN 20, creatinine 1.45. 03/29/21 Discussed with cardiology services, tentative plan is for a JAYDE tomorrow with Dr. Guadarrama, the case will be discussed. Cardiology is recommending IV Lasix 40 every 12 in the meantime. Please keep patient nothing by mouth after midnight. Patient is sitting up in the chair today, his lower extreme edema is continuing to improve. He does have some faint bilateral crackles in his bases. Labs reviewed include a sodium of 131, BUN of 24, creatinine of 1.4. Magnesium is 1.9 today potassium is 4.2. Blood pressure is 116/66, he did have a blood pressure of 90s this morning. Pending finalized repeat blood cultures. 03/30/2021 Patient's temperature with his at the bedside, his urine is clearing up in color today. He is still on IV Lasix and demonstrates stable bilateral crackles in the bases. Patient is evaluated by cardiology the bedside today who feels that patient is a high-risk candidate for JAYDE almost required intubation prior to the procedure to protect his respiratory status. We will consult cardiothoracic to evaluate the patient, as Dr. Riggs performed his aortic valve replacement. JAYDE is requested to rule out endocarditis or infection source from the heart. This is explained in detail with the and the patient. 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 We are agreeing since patient is high risk. Laboratory to include a hemoglobin of 11.2, platelet of 144, sodium 131, BUN of 27, creatinine 1.41. His CRP is 13.9. We will wait for cardiothoracic consultation. 03/31/2021 Patient was pretty status is bit worse compared to yesterday patient may have infiltrate on the chest x-ray patient is already receiving Lasix which we'll continue and closely monitor nephrology and cardiology are following the patien t. Patient the is probably not a good candidate for transesophageal echocardiogram because of his overall clinical condition and comorbidities. Thoracic surgery evaluated the patient because of pectoral muscle flap patient is not a candidate for thoracotomy considering his multiple medical problems patient is not a candidate for cardiac thoracic surgery. Patient bacteremia appears to have resolved probably should just continue antibiotics to treat endocarditis. 04/01/2021 Patient was evaluated. In the chair, he is alert 1 today. He does have some confusion as he did yesterday as well. Patient does have some crackles to his left base minimal, right lung base sounds like it is clearing. Chest x-ray redemonstrated early CHF. He is receiving IV Lasix for which parameters are to hold for a systolic BP less than 100. Patient's metoprolol was held last night for some hypotension, his heart rate was elevated this morning however has normalized as he was able to receive his metoprolol today. Repeat blood cultures are negative 2 however we are pending finalized cultures. He is on IV Rocephin and IV ampicillin. Patient was evaluated by cardiothoracic who felt the patient is not a surgical intervention at this time and JAYDE has been placed on hold. Once medically stable PT is recommending subacute rehab on discharge. Labs reviewed today include a hemoglobin, 9.6 we'll monitor closely repeat tomorrow, platelets are stable at 143. There are no signs of acute bleeding in his scrotal bleeding has resolved. Urine is clear and yellow. Sodium is 134, BUN 29, creatinine 1.62. Blood pressure 87/55 today, patient is afebrile. ROS Constitutional: Denied any fatigue denied any fever. Cardio vascular: denied any chest pain, palpitations, reports peripheral edema Gastrointestinal denied any nausea vomiting Pulmonary: Denies cough, shortness of breath with exertion Neurologic denied any new focal deficits, reports generalized weakness All inpatient medications were reviewed and appropriate changes in these medications as dictated in the interval history and assessment and plan. PHYSICAL EXAMINATION: GENERAL: The patient is alert and oriented x1-2, not in any acute distress. Well developed, well nourished. HEENT: Pupils are round and equally reacting to light. EOMI. No scleral icterus. No conjunctival pallor. Normocephalic, atraumatic. No pharyngeal erythema. No thyromegaly. CARDIOVASCULAR: S1 and S2 present. No murmurs, rubs, or gallops. irregularly irregular PULMONARY: Good air entry into bilateral lung elam bibasilar crackles, more on the left right is clearing patient is on 2 L of oxygen which he uses at home ABDOMEN: Soft, nontender, distended, normoactive bowel sounds. No palpable orga nomegaly. MUSCULOSKELETAL: No joint swelling or deformity. EXTREMITIES: No cyanosis, clubbing, does have pedal edema +2 NEUROLOGICAL: Gross neurological examination did not reveal any focal deficits. SKIN: No rashes. Assessment and plan -Sepsis and bacteremia with Enterococcus faecalis, group D enterococcus without resistance. Continue on antibiotics, repeat cultures are negative 2 -Leukocytosis, related to sepsis and bacteremia, resolved -Congestive heart failure possible chronic diastolic dysfunction with acute exacerbation, EF is 55-60%, IV Lasix -Moderate pulmonary hypertension -Acute renal failure: Related to acute tubular necrosis which is secondary to hypotension, current is improving 1.62 -Chronic kidney disease stage III possible hypertensive sclerosis -Anemia, normocytic, most likely secondary to chronic kidney disease, monitor trends -Metabolic acidosis which is secondary to acute kidney injury as well as IV fluids which have been discontinued. Resolved -Bilateral hydronephrosis possibly due to urological obstruction, initiate Flomax and follow up with Dr. Lim in 1-2 weeks. -History of bladder rupture with surgical repair in [address] Lim -Hyponatremia most likely hypervolemic, 40 mg of IV Lasix every 12 -Hyperlipidemia -History of hypertension Hypotension related to sepsis and bacteremia, on midodrine -Chronic Atrial fibrillation with RVR, rate is currently controlled -History of dementia possibly vascular -Depression -Ruled out pulmonary embolism with a VQ scan which showed low probability for PE DVT prophylaxis: On eliquis RESUMED per cardiology GI prophylaxis DO NOT RESUSCITATE Plan Continue on IV ampicillin. Fluids have been discontinued today. Repeat labs in the morning. Midodrine on for hypotension. JAYDE O/H, conservative management for possible endocarditis. Objective - Vital Signs Vital signs: Vital Signs Temp 97.6 F 04/01/21 08:00 Pulse 74 04/01/21 11:21 Resp 20 04/01/21 11:14 BP 87/55 04/01/21 11:14 Pulse Ox 98 04/01/21 11:14 Intake & Output 03/31/21 04/01/21 04/01/21 18:59 06:59 18:59 Intake Total 594 237 Output Total 700 480 501 Balance -106 -480 -264 Weight 100 kg 96.5 kg Intake: IV 150 Ampicillin 2,000 mg In 100 Sodium Chloride 0.9% 100 ml @ 200 mls/hr IVPB Q12H STEVAN Rx#:[id number] cefTRIAXone 2 gm In 50 Sodium Chloride 0.9% 50 ml @ 100 mls/hr IVPB Q12HR STEVAN Rx#:[id number] Oral 444 237 Output: Urine 700 480 500 Stool 1 Other: Voiding Method Indwelling Catheter Indwelling Catheter Indwelling Catheter - Labs CBC & Chem 7: 03/31/21 07:28 03/31/21 07:28 Labs: Microbiology - Last 24 Hours (Table) 03/27/21 08:06 Blood Culture - Preliminary Blood No Growth after 120 hours 03/30/21 07:26 Blood Culture - Preliminary Blood No Growth after 48 hours Assessment and Plan Time with Patient: Greater than 30
--- NOTE | 2021-04-01 23:45 | PN ---
PROGRESS NOTE DATE OF SERVICE: 04/01/2021 REASON FOR FOLLOWUP: Enterococcus faecalis bacteremia likely endocarditis. INTERVAL HISTORY: Patient is afebrile. The patient is breathing comfortably. Denies any chest pain, shortness of breath, cough, no abdominal pain. No diarrhea. PHYSICAL EXAMINATION: Blood pressure 93/59 with a pulse of 80, temperature of 98. He is 95% on 3 L nasal cannula. General description is an elderly male lying in bed in no distress. Respiratory system: Unlabored breathing, decreased breath sounds in the base, with no wheeze. Heart S1, S2. Regular rate and rhythm. Abdomen soft, no tenderness. Extremities: No edema of the feet. LABS: Hemoglobin 9.4, white count 7.1. BUN of 29, creatinine 1.62. Blood culture repeat has been negative. DIAGNOSTIC IMPRESSION AND PLAN: Patient with Enterococcus faecalis bacteremia recommended for the JAYDE. However, cardiology has signed off and patient not to be a candidate for a JAYDE. The patient is covered with ampicillin and Rocephin, has cleared his bacteremia. Opted for palliative care versus a 6 week course of IV antibiotic for which PICC line has been placed. Continue supportive care. MMODL / IJN: [id number] /
[2021-04-02] MEDS: MIDODRINE 5 MG TAB PO SCH ×3 (06:24→17:07)
[2021-04-02] MEDS: LEVOTHYROXINE 100 MCG TAB PO SCH (06:24)
[2021-04-02] MEDS: LEVOTHYROXINE 75 MCG TAB PO SCH (06:24)
[2021-04-02] MEDS: IPRATROPIUM-ALBUTEROL 3 ML NEB INHALATION SCH ×4 (07:04→19:23)
[2021-04-02] MEDS: FORMOTEROL FUMARATE 20 MCG/2 ML NEBU INHALATION SCH ×2 (07:05→19:23)
[2021-04-02 07:24] LABS: Anisocytosis Slight; Basophils % (A) 1 %; Eosinophils # (A) 0.2 k/uL (0-0.7); Eosinophils % (A) 3 %; HCT 28.4 % (39.0-53.0); HGB 8.9 gm/dL (13.0-17.5); Lymphocytes # (A) 0.5 k/uL (1.0-4.8); Lymphocytes % (A) 7 %; MCH 29.3 pg (25.0-35.0); MCHC 31.4 g/dL (31.0-37.0); MCV 93.5 fL (80.0-100.0); Mean Platelet Volume 8.1; Monocytes # (A) 0.2 k/uL (0-1.0); Monocytes % (A) 4 %; Neutrophils # (A) 5.9 k/uL (1.3-7.7); Neutrophils % (A) 86 %; Platelet Count 144 k/uL (150-450); RBC 3.04 m/uL (4.30-5.90); RDW 16.7 % (11.5-15.5); WBC 6.9 k/uL (3.8-10.6)
[2021-04-02 07:59] LABS: Magnesium 1.9 mg/dL (1.6-2.3); Potassium 3.3 mmol/L (3.5-5.1)
[2021-04-02] MEDS ORDERED: Magnesium Replacement Protocol 1 EACH MISC MISCELLANE PRN (08:22)
[2021-04-02] MEDS: AMPICILLIN 2,000 MG in SODIUM CHLORIDE 0.9% 100 ML IVPB SCH ×2 (09:17→20:28)
[2021-04-02] MEDS: AMIODARONE 100 MG TAB PO SCH (09:20)
[2021-04-02] MEDS: APIXABAN 2.5 MG TABLET PO SCH ×2 (09:20→20:29)
[2021-04-02] MEDS: TAMSULOSIN 0.4 MG CAP.ER.24H PO SCH (09:20)
[2021-04-02] MEDS: FUROSEMIDE 10 MG/ML 4 ML VIAL IV SCH ×2 (09:20→20:29)
[2021-04-02] MEDS: METOPROLOL TARTRATE 25 MG TAB PO SCH ×2 (09:20→20:29)
[2021-04-02] MEDS: POTASSIUM CHLORIDE ER 20 MEQ TAB.ER PO SCH ×2 (09:26→11:27)
[2021-04-02] MEDS ORDERED: LIDOCAINE 1% INJ 10MG/ML (20 ML MDV) SQ ONE (11:08)
[2021-04-02] MEDS: MAGNESIUM SULFATE-D5W PMX 1 GM in DEXTROSE/WATER 1 100ML.BAG IVPB SCH ×2 (11:28→12:52)
--- NOTE | 2021-04-02 12:14 | PN ---
PROGRESS NOTE Patient is seen for followup for acute kidney injury and chronic kidney disease. Patient is currently being diuresed for volume overload. His renal function remains stable. On examination today, blood pressure 92/52, heart rate 104 per minute. He is afebrile. EXAMINATION OF THE HEART: S1 and S2. EXAMINATION OF LUNGS: Decreased breath sounds at the bases. Abdomen is soft, non-tender. Examination of lower extremities shows edema 2+ bilaterally. V[employer] ASS[employer]IATE EXAM: Grossly intact. Labs show sodium 135, potassium 3.3, BUN 33, creatinine 1.5. ASSESSMENT: 1. Acute kidney injury, cardiorenal as well as ATN, being diuresed for volume overload. Renal function has been stable. I will continue with current dose of IV Lasix. 2. Enterococcus faecalis bacteremia with repeat blood cultures negative thus far from 03/27/2021 and 03/30/2021, being followed by ID and maintained on ceftriaxone. There is high suspicion for endocarditis; awaiting JAYDE. 3. Congestive heart failure with volume overload, being diuresed. 4. Bilateral hydronephrosis, maintained on Flomax, currently with indwelling Duong catheter, being followed by Urology. Renal function is stable. 5. Chronic kidney disease, stage 3. Baseline creatinine 1.1 to 1.3 secondary to nephrosclerosis. 6. Moderate pulmonary hypertension and acute on chronic diastolic congestive heart failure. 7. Metabolic acidosis, now improved. PLAN: Continue to diurese patient. Continue with midodrine. Replace potassium. MMODL / IJN: [id number] /
--- NOTE | 2021-04-02 13:30 | P.PN ---
Subjective Progress Note Date: 04/02/21 68-year-old male admitted because of bleeding from the scrotum patient is found to be bacteremic later possible source is probably skin breakdown at the scrotal area. Patient enterococcal bacteremia bacteremia and patient is on Unasyn for that. Patient does have history of atrial fibrillation. Patient probably has a chronic diastolic dysfunction patient appears to be volume overloaded with some pulmonary edema bibasilar crackles on lung exam patient will be switched IV Lasix IV fluids will be discontinued. Patient blood pressure is low normal because of which I will hold off on lisinopril. Patient had normal ejection fraction the past patient had a VQ scan today which showed normal ejection fr action. Patient has elevated creatinine of 1.84 patient was in acute renal failure and patient which improved. 03/24/2021 Patient is resting comfortably in the bed he denies any current pain. Patient does have some 3+ pitting edema, lungs are crackles in the bases and throughout the posterior lung elam. Patient repeat chest x-ray today that we demonstrated scattered infiltrates, x-rays reviewed and does appear to be fluid overload status. His BNP on admission was 11,400. Patient's hypotensive this morning at 79/50. Prior to that it was 85/56. Patient is 95% on 3 L nasal cannula. Cardiac meds are held this morning, pending reconsultation. Other vitals include a temp of 98.1, heart rate 68 A. fib. Labs today reveal a white count of 17.5, hemoglobin 11.2. Sodium is 137, potassium 3.7, BUN 50, creatinine 2.34. Patient's glucose is 113. CRP is 16.5. Blood cultures are currently pending repeat. 03/25/2021 Patient is evaluated today, still presenting with crackles throughout all lung elam. Patient had abdominal pelvis CT completed yesterday that showed some airspace infiltrate and atelectasis in both lung bases with pleural thickening that is not significantly different last exam. Cardio megaly. Mild bilateral hydronephrosis with dilated urinary bladder. Hydronephrosis is probably secondary to the urinary retention. Urinary bladder is increased compared to old exam. Hydronephrosis is new compared to old exam. Patient also had a chest CT which revealed bilateral lower lobe pneumonia and atelectasis, pleural effusions, pleural fluid improved compared to old exam. There is new bilateral hydronephrosis. Patient was ultimately retaining urine and had a Duong catheter placed at noon today. Creatinine today is 2.07, sodium 135, calcium 6.6. Urinalysis was obtained which showed moderate blood, rare bacteria. Negative for UTI. Patient had a nephrology consult today who recommends continue gentle IV hydration and a urology consult. 03/26/2021 Patient is sitting up at the chair at the time of my assessment. He states overall he is feeling better. He has an indwelling catheter that is dark fabian in color. His labs are reviewed include a WBC of 11.4, hemoglobin of 10, platelets of 67, sodium 132, BUN 40, creatinine 1.76. Albumin is low at 2.2. His pro-calcitonin was elevated at 1.03. Vital signs include temperature 97.7, heart rate 76, blood pressure 106/66, 93% on 2 L nasal cannula. Limited echo reveals a EF of 55-60%. Current changes from cardiology include discontinued and IV fluids, one-time dose of IV Lasix, decreasing Lopressor. A.m. cortisol level 21. was updated at the bedside yesterday who states that all of his providers are down in [place]. 03/27/2021 Patient can use to have persistent bacteremia although kidney function continued to improve blood pressure remains on the lower side. Patient has enterococcus patient does have a murmur in the attic area as well will discuss with the infectious disease regarding the need for transesophageal echocardiogram to evaluate for hepatitis considering persistent bacteremia. Leukocytosis is improving creatinine can use to improve. 03/28/2021 Patient is evaluated today sitting in the chair. His blood cultures remained positive with group D enterococcus. Blood culture drawn yesterday is still pending. Discussed case with infectious disease who is agreeing on the need for a JAYDE to evaluate for endocarditis. JAYDE has been ordered. Patient's blood pressure is in the lower side at 86/55. He has remained afebrile. White blood cell count has normalized. Hemoglobin is stable at 10.3, platelets are increasing and 92. Sodium is 132, BUN 20, creatinine 1.45. 03/29/21 Discussed with cardiology services, tentative plan is for a JAYDE tomorrow with Dr. Guadarrama, the case will be discussed. Cardiology is recommending IV Lasix 40 every 12 in the meantime. Please keep patient nothing by mouth after midnight. Patient is sitting up in the chair today, his lower extreme edema is continuing to improve. He does have some faint bilateral crackles in his bases. Labs reviewed include a sodium of 131, BUN of 24, creatinine of 1.4. Magnesium is 1.9 today potassium is 4.2. Blood pressure is 116/66, he did have a blood pressure of 90s this morning. Pending finalized repeat blood cultures. 03/30/2021 Patient's temperature with his at the bedside, his urine is clearing up in color today. He is still on IV Lasix and demonstrates stable bilateral crackles in the bases. Patient is evaluated by cardiology the bedside today who feels that patient is a high-risk candidate for JAYDE almost required intubation prior to the procedure to protect his respiratory status. We will consult cardiothoracic to evaluate the patient, as Dr. Riggs performed his aortic valve replacement. JAYDE is requested to rule out endocarditis or infection source from the heart. This is explained in detail with the and the patient. 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 We are agreeing since patient is high risk. Laboratory to include a hemoglobin of 11.2, platelet of 144, sodium 131, BUN of 27, creatinine 1.41. His CRP is 13.9. We will wait for cardiothoracic consultation. 03/31/2021 Patient was pretty status is bit worse compared to yesterday patient may have infiltrate on the chest x-ray patient is already receiving Lasix which we'll continue and closely monitor nephrology and cardiology are following the patien t. Patient the is probably not a good candidate for transesophageal echocardiogram because of his overall clinical condition and comorbidities. Thoracic surgery evaluated the patient because of pectoral muscle flap patient is not a candidate for thoracotomy considering his multiple medical problems patient is not a candidate for cardiac thoracic surgery. Patient bacteremia appears to have resolved probably should just continue antibiotics to treat endocarditis. 04/01/2021 Patient was evaluated. In the chair, he is alert 1 today. He does have some confusion as he did yesterday as well. Patient does have some crackles to his left base minimal, right lung base sounds like it is clearing. Chest x-ray redemonstrated early CHF. He is receiving IV Lasix for which parameters are to hold for a systolic BP less than 100. Patient's metoprolol was held last night for some hypotension, his heart rate was elevated this morning however has normalized as he was able to receive his metoprolol today. Repeat blood cultures are negative 2 however we are pending finalized cultures. He is on IV Rocephin and IV ampicillin. Patient was evaluated by cardiothoracic who felt the patient is not a surgical intervention at this time and JAYDE has been placed on hold. Once medically stable PT is recommending subacute rehab on discharge. Labs reviewed today include a hemoglobin, 9.6 we'll monitor closely repeat tomorrow, platelets are stable at 143. There are no signs of acute bleeding in his scrotal bleeding has resolved. Urine is clear and yellow. Sodium is 134, BUN 29, creatinine 1.62. Blood pressure 87/55 today, patient is afebrile. 04/02/2021 Patient is evaluated sitting up in the chair. He is status post insertion of a PICC line. Plan is for IV antibiotics on discharge once patient is medically stable. Patient is still having some moments of confusion. His remains at the bedside. Current dose of IV Lasix will be continued. Repeat blood cultures are negative so far. Indwelling catheter, urine clear and yellow. We will continue with monitoring to improve blood pressures. Lungs continue to have faint crackles in the bases. Labs reviewed to include a hemoglobin of 8.9, platelet count stable at 144. Sodium levels 135, potassium 3.3 today. Replaced per protocol. BUN is 33, creatinine 1.51. Mag is 1.9. Blood pressure today is 104/60, he is afebrile. He maintains on 3 L nasal cannula at 93-95%. He does wear 2 L of home oxygen. Prognosis is extremely poor for this patient, he has a high risk for readmission once discharged. This was communicated with the at the bedside. She does have plans to start with palliative care once patient is discharged to rehab. ROS Constitutional: Denied any fatigue denied any fever. Cardio vascular: denied any chest pain, palpitations, reports peripheral edema Gastrointestinal denied any nausea vomiting Pulmonary: Denies cough, shortness of breath with exertion Neurologic denied any new focal deficits, reports generalized weakness All inpatient medications were reviewed and appropriate changes in these medications as dictated in the interval history and assessment and plan. PHYSICAL EXAMINATION: GENERAL: The patient is alert and oriented x1-2, not in any acute distress. Well developed, well nourished. HEENT: Pupils are round and equally reacting to light. EOMI. No scleral icterus. No conjunctival pallor. Normocephalic, atraumatic. No pharyngeal erythema. No thyromegaly. CARDIOVASCULAR: S1 and S2 present. No murmurs, rubs, or gallops. irregularly irregular PULMONARY: Good air entry into bilateral lung elam bibasilar crackles, 2 L home oxygen. ABDOMEN: Soft, nontender, distended, normoactive bowel sounds. No palpable organomegaly. MUSCULOSKELETAL: No joint swelling or deformity. EXTREMITIES: No cyanosis, clubbing, does have pedal edema +2 NEUROLOGICAL: Gross neurological examination did not reveal any focal deficits. SKIN: No rashes. Assessment and plan -Sepsis and bacteremia with Enterococcus faecalis, group D enterococcus without resistance. Continue on antibiotics, repeat cultures are negative 2 -Leukocytosis, related to sepsis and bacteremia, resolved -Congestive heart failure possible chronic diastolic dysfunction with acute exacerbation, EF is 55-60%, IV Lasix -Moderate pulmonary hypertension -Acute renal failure: Related to acute tubular necrosis which is secondary to hy potension, current is improving 1.51 -Chronic kidney disease stage III possible hypertensive sclerosis -Anemia, normocytic, most likely secondary to chronic kidney disease, monitor trends -Metabolic acidosis which is secondary to acute kidney injury as well as IV fluids which have been discontinued. Resolved -Bilateral hydronephrosis possibly due to urological obstruction, initiate Flomax and follow up with Dr. Lim in 1-2 weeks. -History of bladder rupture with surgical repair in [address] Lim -Hyponatremia most likely hypervolemic, 40 mg of IV Lasix every 12 -Hyperlipidemia -History of hypertension Hypotension related to sepsis and bacteremia, on midodrine -Chronic Atrial fibrillation with RVR, rate is currently controlled, on eliquis -History of dementia possibly vascular, patient does have some hospital delirium at times -Depression -Ruled out pulmonary embolism with a VQ scan which showed low probability for PE -Hypokalemia, replace per protocol, mostly due to diuretics DVT prophylaxis: On eliquis RESUMED per cardiology GI prophylaxis DO NOT RESUSCITATE Plan Continue on IV ampicillin. Fluids have been discontinued today. Repeat labs in the morning. Midodrine on for hypotension. JAYDE O/H, conservative management for possible endocarditis. Patient received a PICC line today for IV antibiotics outpatient. Replace lites as needed. Repeat labs in the morning. Prognosis is extremely poor for this patient and is a very high risk for readmission. Continue with Duong catheter for the next 1-2 weeks and follow-up with Dr. Reyna in the office. We had a long discussion today with the at the bedside regarding his discharge planning. Patient will be discharged on IV antibiotics to [facility] once medically stable, with initiation of palliative care. Objective - Vital Signs Vital signs: Vital Signs Temp 98.5 F 04/02/21 11:51 Pulse 70 04/02/21 11:51 Resp 20 04/02/21 11:51 BP 104/60 04/02/21 11:51 Pulse Ox 95 04/02/21 11:51 Intake & Output 04/01/21 04/02/21 04/02/21 18:59 06:59 18:59 Intake Total 477 237 Output Total 1052 512 401 Balance -575 -512 -164 Weight 97 kg Intake: Oral 477 237 Output: Urine 1050 510 400 Stool 2 2 1 Other: Voiding Method Indwelling Catheter Indwelling Catheter Indwelling Catheter # Voids 1 # Bowel Movements 1 - Labs CBC & Chem 7: 04/02/21 06:45 04/02/21 06:45 Labs: Abnormal Lab Results - Last 24 Hours (Table) 04/02/21 04/02/21 Range/Units 06:45 06:45 RBC 3.04 L (4.30-5.90) m/uL Hgb 8.9 L (13.0-17.5) gm/dL Hct 28.4 L (39.0-53.0) % RDW 16.7 H (11.5-15.5) % Plt Count 144 L (150-450) k/uL Lymphocytes # 0.5 L (1.0-4.8) k/uL Sodium 135 L (137-145) mmol/L Potassium 3.3 L (3.5-5.1) mmol/L BUN 33 H (9-20) mg/dL Creatinine 1.51 H (0.66-1.25) mg/dL Glucose 113 H (74-99) mg/dL Calcium 7.0 L (8.4-10.2) mg/dL Microbiology - Last 24 Hours (Table) 03/27/21 08:06 Blood Culture - Final Blood No Growth after 144 hours 03/30/21 07:26 Blood Culture - Preliminary Blood No Growth after 72 hours Assessment and Plan Time with Patient: Greater than 30
--- NOTE | 2021-04-02 16:42 | PN ---
PROGRESS NOTE DATE OF SERVICE: 04/02/2021 REASON FOR FOLLOWUP: Enterococcus faecalis bacteremia concerning for endocarditis. INTERVAL HISTORY: The patient is afebrile. The patient is currently breathing comfortably. Denies chest pain, shortness of breath or cough. No abdominal pain or diarrhea. PHYSICAL EXAMINATION: Blood pressure is 104/60 with a pulse of 70, temperature 98.5. He is 95% on 3 L nasal cannula. General description is an elderly male lying in bed in no distress. RESPIRATORY SYSTEM: Unlabored breathing. Clear to auscultation anteriorly. HEART: S1, S2. Regular rate and rhythm. ABDOMEN: Soft. No tenderness. LABS: Hemoglobin is 8.9, white count 6.9, creatinine 1.51. DIAGNOSTIC IMPRESSION AND PLAN: Patient with Enterococcus faecalis bacteremia concerning for endocarditis. Cardiology is recommending a JAYDE. CT Surgery has seen the patient and is recommending medical treatment. Plan is for a total of 6 weeks of IV ampicillin and Rocephin. at the bedside. Questions and concerns were answered. MMODL / IJN: [id number] /
[2021-04-02] MEDS: QUEtiapine 25 MG TAB PO SCH (20:29)
[2021-04-02] MEDS: ATORVASTATIN 10 MG TAB PO SCH (20:29)
[2021-04-02] MEDS ORDERED: HALOPERIDOL LACTATE 5 MG/ML 1 ML VIAL IM PRN (22:00)
[2021-04-03] MEDS ORDERED: POTASSIUM CHLORIDE ER 20 MEQ TAB.ER PO SCH (06:00)
[2021-04-03] MEDS: LEVOTHYROXINE 100 MCG TAB PO SCH (06:16)
[2021-04-03] MEDS: MIDODRINE 5 MG TAB PO SCH ×2 (06:16→12:36)
[2021-04-03] MEDS: LEVOTHYROXINE 75 MCG TAB PO SCH (06:16)
[2021-04-03] MEDS: POTASSIUM CHLORIDE ER 20 MEQ TAB.ER PO SCH ×2 (06:16→06:19)
[2021-04-03 07:32] LABS: Anisocytosis Slight; Basophils % (A) 0 %; Eosinophils # (A) 0.1 k/uL (0-0.7); Eosinophils % (A) 1 %; HCT 27.7 % (39.0-53.0); HGB 8.7 gm/dL (13.0-17.5); Lymphocytes # (A) 0.6 k/uL (1.0-4.8); Lymphocytes % (A) 8 %; MCH 29.2 pg (25.0-35.0); MCHC 31.6 g/dL (31.0-37.0); MCV 92.6 fL (80.0-100.0); Mean Platelet Volume 8.3; Monocytes # (A) 0.3 k/uL (0-1.0); Monocytes % (A) 4 %; Neutrophils # (A) 6.4 k/uL (1.3-7.7); Neutrophils % (A) 86 %; Platelet Count 158 k/uL (150-450); RBC 2.99 m/uL (4.30-5.90); RDW 16.9 % (11.5-15.5); WBC 7.5 k/uL (3.8-10.6)
[2021-04-03 08:46] LABS: Magnesium 2.2 mg/dL (1.6-2.3); Potassium 3.8 mmol/L (3.5-5.1)
[2021-04-03] MEDS: TAMSULOSIN 0.4 MG CAP.ER.24H PO SCH (09:06)
[2021-04-03] MEDS: FUROSEMIDE 10 MG/ML 4 ML VIAL IV SCH (09:06)
[2021-04-03] MEDS: METOPROLOL TARTRATE 25 MG TAB PO SCH (09:06)
[2021-04-03] MEDS: APIXABAN 2.5 MG TABLET PO SCH (09:06)
[2021-04-03] MEDS: AMIODARONE 100 MG TAB PO SCH (09:07)
[2021-04-03] MEDS: AMPICILLIN 2,000 MG in SODIUM CHLORIDE 0.9% 100 ML IVPB SCH (09:08)
[2021-04-03] MEDS: FORMOTEROL FUMARATE 20 MCG/2 ML NEBU INHALATION SCH (09:14)
[2021-04-03] MEDS: IPRATROPIUM-ALBUTEROL 3 ML NEB INHALATION SCH ×3 (09:14→15:57)
[2021-04-03 09:18] VITALS: TEMP 97.5
--- NOTE | 2021-04-03 12:15 | PN ---
PROGRESS NOTE HISTORY: Patient is seen for followup for chronic kidney disease. Renal function is stable. Patient is currently being diuresed. He has Enterococcus faecalis bacteremia, however, repeat blood cultures have been negative. There is concern for endocarditis. Patient had a JAYDE done yesterday. PHYSICAL EXAMINATION: On examination today, he is comfortable sitting on a bedside chair. Blood pressure 113/66, heart rate 82 per minute, he is afebrile. Examination of the heart S1, S2. Examination of the lungs, bilateral breath sounds are heard. Abdomen is soft, nontender. Examination of lower extremities shows edema 2+ bilaterally. VP PATIENT exam grossly intact. LAB: Sodium 134, potassium 3.8, BUN 37, creatinine 1.5, hemoglobin 10, 8.7 g/dL. ASSESSMENT: 1. Chronic kidney disease NKF stage III. Baseline creatinine 1.1 to 1.3. This is stage IIIA secondary to nephrosclerosis. 2. Acute kidney injury, cardiorenal, ATN, being diuresed for volume overload. Renal function stable, maintained on IV Lasix. 3. Enterococcus faecalis bacteremia with repeat blood cultures negative thus far from 03/27 and 03/30/2021, being followed by Infectious Disease, maintained on ceftriaxone. High suspicion for endocarditis, status post JAYDE done yesterday report not available. 4. Congestive heart failure with volume overload, being diuresed, acute on chronic diastolic congestive heart failure. 5. Moderate pulmonary hypertension. 6. Bilateral hydronephrosis, maintained on Flomax, currently with indwelling Duong catheter, being followed by Urology. Renal function is stable. 7. Metabolic acidosis, now resolved. PLAN: Continue with IV Lasix. Continue with midodrine. Monitor potassium. Continue antibiotics as per ID. MMODL / IJN: [id number] /
[2021-04-03 13:09] VITALS: BP 97/52; RESP 20
--- NOTE | 2021-04-03 14:00 | PN ---
PROGRESS NOTE DATE OF SERVICE: 04/03/2021 REASON FOR FOLLOWUP: Enterococcus faecalis bacteremia concerning for endocarditis. INTERVAL HISTORY: Patient is afebrile. The patient is breathing comfortably. No chest pain, shortness of breath or cough. No abdominal pain. No diarrhea. PHYSICAL EXAMINATION: Blood pressure 97/52 with a pulse of 69, temperature 98. He is 95% on 2 L nasal cannula. General description is an elderly male up in the bed in no distress. Respiratory system: Unlabored breathing. Decreased breath sounds in the bases. No wheeze. Heart S1, S2. Regular rate and rhythm. Abdomen soft, no tenderness. LABS: Hemoglobin 8.2, white count 7.5, creatinine 1.50. 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 JAYDE could not be completed. The patient is currently covered with Rocephin to continue finish a 6 week course of therapy. at the bedside, questions answered. MMODL / IJN: [id number] /
--- NOTE | 2021-04-03 14:44 | P.DS ---
Providers Date of admission: 03/21/21 15:41 Expected date of discharge: 04/03/21 Attending physician: Temo Page Consults: 03/21/21 19:24 Consult Physician Routine Consulting Provider: Dayami Guadarrama Consult Reason/Comments: chf Do you want consulting provider notified?: Yes 03/22/21 04:42 Consult Physician Routine Consulting Provider: Hugo Gonzalez Consult Reason/Comments: bacteremia Do you want consulting provider notified?: Yes, Notify in am 03/24/21 12:17 Consult Physician Routine Consulting Provider: Miladis Wiley Consult Reason/Comments: GORDO Do you want consulting provider notified?: Yes 03/25/21 10:10 Consult Physician Routine Consulting Provider: Ezio Merritt Consult Reason/Comments: hydronephrosis Do you want consulting provider notified?: Yes 03/30/21 10:24 Consult Physician Routine Consulting Provider: Jae Riggs Consult Reason/Comments: sternal dehiscience, AVR and mitral valve repair Do you want consulting provider notified?: Yes Primary care physician: Russell Das MD Hospital Course: Final diagnosis -Sepsis and bacteremia with Enterococcus faecalis, group D enterococcus without resistance. Continue on IV antibiotics -Leukocytosis, related to sepsis and bacteremia, resolved -Congestive heart failure possible chronic diastolic dysfunction with acute exacerbation, EF is 55-60% -Moderate pulmonary hypertension -Acute renal failure: Related to acute tubular necrosis which is secondary to hypotension -Chronic kidney disease stage III possible hypertensive sclerosis -Anemia, normocytic, most likely secondary to chronic kidney disease -Metabolic acidosis which is secondary to acute kidney injury, Resolved -Bilateral hydronephrosis possibly due to urological obstruction, follow up with Dr. Lim in 1-2 weeks. -History of bladder rupture with surgical repair in [address] Lim -Hyponatremia most likely hypervolemic -Hyperlipidemia -History of hypertension Hypotension related to sepsis and bacteremia, on midodrine -Chronic Atrial fibrillation with RVR, rate is currently controlled, on eliquis -History of dementia possibly vascular, patient does have some hospital delirium at times -Depression -Ruled out pulmonary embolism with a VQ scan which showed low probability for PE -Hypokalemia -DVT prophylaxis -GI prophylaxis -DO NOT RESUSCITATE Discharge disposition Patient is being discharged in a stable condition with guarded prognosis to [facility] for continued PT/OT therapy. Patient and family have arranged for palliative care. Patient will follow-up with Dr. Russell Das along with urology in the outpatient setting. Patient will continue on IV antibiotic therapy in the form of ampicillin 2 g every 12 hours along with ceftriaxone 2 g every 12 hours for the next 6 weeks and does have a PICC line. Patient to continue with Lasix 60 mg twice daily and close outpatient monitoring of repeat labs per nephrology recommendations. Total time taken is greater than 35 minutes. Hospital course This is a 76-year-old male who was recently admitted with bleeding of the scrotum found to be bacteremic and patient was also found to have enterococcal bacteremia and started on IV antibiotics with infectious disease following closely. Patient does have history of atrial fibrillation and volume overload chronic diastolic dysfunction and was diuresed with IV Lasix. Multiple medical consultations including infectious disease and nephrology along with urology and cardiology following and patient will continue on Lasix 60 mg twice daily and close outpatient monitoring of repeat labs in 2-3 days. Patient will also need to follow-up with urology and continue with indwelling Duong catheter. Per at the bedside arrangements have been made for palliative care once discharged f rom the hospital. Patient continues on 4-5 L of oxygen via nasal cannula and will continue. Patient is also to continue with breathing inhalational treatments 4 times a day along with when necessary in the outpatient setting. Currently no reports of chest pain, worsening shortness of breath, or palpitations. Patient is afebrile. No reports of nausea or vomiting and patient is tolerating diet. Patient will be going to [facility] today. Patient is high risk due to multiple readmissions and prognosis remains extremely poor and guarded. On exam vital signs are stable. Cardio S1, S2 are muffled. Respiratory system shows diminished breath sounds at the bases with no wheezing or rhonchi noted. Abdomen is soft and obese, and nontender. Nervous system shows diffuse weakness. Please refer to medication reconciliation sheet for a list of medications. Patient Condition at Discharge: Fair Plan - Discharge Summary Discharge Rx Participant: No New Discharge Prescriptions: New Ampicillin Sodium 2,000 mg IV Q12H 42 Days #84 each Ipratropium-Albuterol Nebulize [Duoneb 0.5 mg-3 mg/3 ml Soln] 3 ml INHALATION RT-QID ml Furosemide [Lasix] 60 mg PO BID 30 Days #180 tab Metoprolol Tartrate [Lopressor] 25 mg PO BID tab Formoterol Fumarate [Perforomist] 20 mcg INHALATION RT-BID ml Midodrine [ProAmatine] 10 mg PO AC-TID tab cefTRIAXone [Rocephin] 2 gm IVPB Q12HR 42 Days #84 each Apixaban [Eliquis] 2.5 mg PO BID tablet Tamsulosin [Flomax] 0.4 mg PO PC-BRKFST QUEtiapine [SEROquel] 12.5 mg PO HS tab Acetaminophen Tab [Tylenol] 650 mg PO Q6HR PRN tab PRN Reason: Mild Pain Or Fever > 100.5 Continue Atorvastatin [Lipitor] 10 mg PO HS Ipratropium-Albuterol Nebulize [Duoneb 0.5 mg-3 mg/3 ml Soln] 3 ml INHALATION RT-QID PRN #300 ml PRN Reason: Shortness Of Breath Or Wheezing Amiodarone [Cordarone] 100 mg PO DAILY Levothyroxine Sodium [Synthroid] 175 mcg PO DAILY Discontinued Apixaban [Eliquis] 5 mg PO BID Metoprolol Tartrate [Lopressor] 100 mg PO BID lisinopriL [Zestril] 2.5 mg PO DAILY Furosemide [Lasix] 40 mg PO BID Diltiazem HCl [Cartia Xt] 120 mg PO DAILY Umeclidinium Brm/Vilanterol Tr [Anoro Ellipta 62.5-25 Mcg INH] 1 puff INHALATION RT-BID #1 device Discharge Medication List Amiodarone [Cordarone] 100 mg PO DAILY 12/01/20 [History] Atorvastatin [Lipitor] 10 mg PO HS 12/01/20 [History] Levothyroxine Sodium [Synthroid] 175 mcg PO DAILY 12/01/20 [History] Ipratropium-Albuterol Nebulize [Duoneb 0.5 mg-3 mg/3 ml Soln] 3 ml INHALATION RT-QID PRN #300 ml 12/12/20 [Rx] Acetaminophen Tab [Tylenol] 650 mg PO Q6HR PRN tab 04/03/21 [Rx] Ampicillin Sodium 2,000 mg IV Q12H 42 Days #84 each 04/03/21 [Rx] Apixaban [Eliquis] 2.5 mg PO BID tablet 04/03/21 [Rx] Formoterol Fumarate [Perforomist] 20 mcg INHALATION RT-BID ml 04/03/21 [Rx] Furosemide [Lasix] 60 mg PO BID 30 Days #180 tab 04/03/21 [Rx] Ipratropium-Albuterol Nebulize [Duoneb 0.5 mg-3 mg/3 ml Soln] 3 ml INHALATION RT-QID ml 04/03/21 [Rx] Metoprolol Tartrate [Lopressor] 25 mg PO BID tab 04/03/21 [Rx] Midodrine [ProAmatine] 10 mg PO AC-TID tab 04/03/21 [Rx] QUEtiapine [SEROquel] 12.5 mg PO HS tab 04/03/21 [Rx] Tamsulosin [Flomax] 0.4 mg PO PC-BRKFST 04/03/21 [Rx] cefTRIAXone [Rocephin] 2 gm IVPB Q12HR 42 Days #84 each 04/03/21 [Rx] Follow up Appointment(s)/Referral(s): Davon Lim MD [STAFF PHYSICIAN] - 2 Weeks Russell Das MD [Primary Care Provider] - 1-2 days [facility], [NON-STAFF] - 1 Week (Palliative Care to begin upon admission to [facility]) Ambulatory/Diagnostic Orders: Complete Blood Count w/diff [LAB.AMB] Time Frame: 2 Days, Location: None Selected Activity/Diet/Wound Care/Special Instructions: Patient is going to [facility] Activity as tolerated Continue palliative care Continue with IV antibiotics per infectious disease for 6 weeks Continue heart healthy diet Recommend repeat labs in 2-3 days to monitor CBC and CMP and magnesium Continue with ensure compact 3 times a day with meals chocolate Continue oxygen supplementation via nasal cannula with 5 L Continued on breathing treatments Follow-up with primary care provider upon discharge Discharge Disposition: TRANSFER TO SNF/F
[2021-04-03 16:08] VITALS: PULSE 77
--- NOTE | 2021-04-06 08:48 | IR ---
PICC LINE PLACEMENT: HISTORY: Infection requiring long-term antibiotic therapy PROCEDURE: Ultrasound and fluoroscopic guidance of PICC line placement. COMPLICATIONS: None ANESTHESIA: 1. 1% Lidocaine locally. FINDINGS/TECHNIQUE: The procedure was explained to the patient. The risks, complications, benefits and alternatives were discussed and any questions were answered. Informed consent was obtained. The patient was placed supine on the fluoroscopic table and prepped and draped in the usual sterile fash ion. Utilizing a 21 gauge needle and sonographic and fluoroscopic guidance, access in the right bas ilic vein was achieved and there is placement of a 0.018 guidewire. The vein is patent. A 4-F sheat h was placed over the guidewire. The guidewire and dilator were removed and a 4-F. PICC line was corby erick through the sheath with the tip at the level of the SVC. The sheath was removed, the catheter wa s flushed and sutured into position. The patient was stable throughout the procedure and remained st able upon discharge from the Department of Radiology. The vein puncture was patent under ultrasound. A mason scale image was obtained to document patency of the vein punctured. All elements of the maximal barrier technique were utilized. FLUOROSCOPY TIME: 0.1 minutes and one image submitted IMPRESSION: Successful PICC line placement under ultrasound and fluoroscopic guidance.
== END 2021-04-03 17:12 | DRG 871 ==
LOC: EC 11:58 → 3SCARD 15:41
PROVIDERS: ADMIT Hospitalist; ATTEND Hospitalist
PROC: 02HV33Z Insertion of Infusion Device into Superior Vena Cava, Percutaneous Approach (ICD-10-PCS; principal; 2021-04-02 07:30)
DX: A41.81 Sepsis due to Enterococcus (principal); I50.33 Acute on chronic diastolic (congestive) heart failure; J18.9 Pneumonia, unspecified organism; N17.0 Acute kidney failure with tubular necrosis; I33.0 Acute and subacute infective endocarditis; E87.1 Hypo-osmolality and hyponatremia; E87.2 Acidosis; I13.0 Hypertensive heart and chronic kidney disease with heart failure and stage 1 through stage 4 chronic kidney disease, or unspecified chronic kidney disease; I48.20 Chronic atrial fibrillation, unspecified; J98.11 Atelectasis; L03.818 Cellulitis of other sites; N13.1 Hydronephrosis with ureteral stricture, not elsewhere classified; F05 Delirium due to known physiological condition; Z51.5 Encounter for palliative care; Z20.822 Contact with and (suspected) exposure to COVID-19; Z66 Do not resuscitate; D63.1 Anemia in chronic kidney disease; D69.6 Thrombocytopenia, unspecified; E66.9 Obesity, unspecified; Z68.32 Body mass index [BMI] 32.0-32.9, adult; I27.20 Pulmonary hypertension, unspecified; F32.9 Major depressive disorder, single episode, unspecified; Z95.3 Presence of xenogenic heart valve; Z99.81 Dependence on supplemental oxygen; Z85.850 Personal history of malignant neoplasm of thyroid; F01.50 Vascular dementia, unspecified severity, without behavioral disturbance, psychotic disturbance, mood disturbance, and anxiety; E89.0 Postprocedural hypothyroidism; E83.51 Hypocalcemia; E86.0 Dehydration; E87.6 Hypokalemia; E78.5 Hyperlipidemia, unspecified; H91.90 Unspecified hearing loss, unspecified ear; I08.0 Rheumatic disorders of both mitral and aortic valves; I45.10 Unspecified right bundle-branch block; N49.2 Inflammatory disorders of scrotum; S31.31XA Laceration without foreign body of scrotum and testes, initial encounter; X58.XXXA Exposure to other specified factors, initial encounter; M19.90 Unspecified osteoarthritis, unspecified site; N18.31 Chronic kidney disease, stage 3a; Z86.718 Personal history of other venous thrombosis and embolism; Z79.01 Long term (current) use of anticoagulants; Z86.711 Personal history of pulmonary embolism; I83.90 Asymptomatic varicose veins of unspecified lower extremity; R29.6 Repeated falls; Z91.81 History of falling; R32 Unspecified urinary incontinence; T50.2X5A Adverse effect of carbonic-anhydrase inhibitors, benzothiadiazides and other diuretics, initial encounter; Z79.2 Long term (current) use of antibiotics; Z79.890 Hormone replacement therapy; Z79.899 Other long term (current) drug therapy; Z80.0 Family history of malignant neoplasm of digestive organs; Z82.49 Family history of ischemic heart disease and other diseases of the circulatory system; Z87.891 Personal history of nicotine dependence; Z96.652 Presence of left artificial knee joint; Z83.2 Family history of diseases of the blood and blood-forming organs and certain disorders involving the immune mechanism; Z98.890 Other specified postprocedural states; G47.00 Insomnia, unspecified; Z98.42 Cataract extraction status, left eye; Z98.41 Cataract extraction status, right eye
CPT/HCPCS: 36415; 36573; 71045; 71250; 74176; 78582; 80048; 80053; 81001; 82330; 82533; 83605; 83735; 83880; 84132; 84145; 84484; 85025; 85027; 85379; 85610; 85652; 85730; 86140; 87040; 87077; 87186; 87635; 93005; 93308; 94640; 94760; 96360; 96361; 99285